=== PATIENT | male | born 1975 | race Caucasian/White ===

== ENCOUNTER 2020-08-11 13:19 | Outpatient (REF) | payer OTHER, SELFPAY ==
--- NOTE | 2020-08-11 | US_ITS ---
EXAMINATION: Noninvasive assessment of the arteries of both lower extremities to include a PVR exam limited (1-2 levels) and RANJANA, bilateral. ? Yevgeniy Martinez M.D. CLINICAL INFORMATION: Peripheral vascular disease COMPARISON: None TECHNIQUE: The ankle/brachial indices of the distal posterior tibial and the dorsalis pedis arteries were obtained of the lower extremity arterial system bilaterally; along with pressures and pulse volume recordings at the ankle and duplex Doppler techniques of the common femoral, proximal femoral and proximal profunda arteries. The study was performed at rest. ? FINDINGS AT REST:? RIGHT LE. THE RIGHT ANKLE-BRACHIAL INDEX IS: 1.09 (higher of the DP/PT) >0.97-1.25 = normal - no significant arterial disease 0.75-0.96 = mild peripheral arterial disease 0.50-0.74 = moderate peripheral arterial disease <0.50 = severe peripheral arterial disease <0.30 = critical arterial disease 2. SEGMENTAL PRESSURES: Ankle: PT 168 DP 183 3. PVR WAVEFORMS: Ankle: Within normal limits 4. DIRECT DUPLEX: Mildly increased velocities and triphasic waveforms above the knee, biphasic waveforms in the popliteal artery and posterior tibial artery. LEFT LE. THE LEFT ANKLE-BRACHIAL INDEX IS: 0.95 (higher of the DP/PT) >0.97-1.25 = normal - no significant arterial disease 0.75-0.96 = mild peripheral arterial disease 0.50-0.74 = moderate peripheral arterial disease <0.50 = severe peripheral arterial disease <0.30 = critical arterial disease 2. SEGMENTAL PRESSURES: Ankle: PT 139 DP 160 3. PVR WAVEFORMS: Ankle: Within normal limits 4. DIRECT DUPLEX: Normal velocities and triphasic waveforms in the left lower extremity. ? IMPRESSION: Right lower extremity: ABIs and PVR waveforms are within normal limits. The velocities are mildly increased in the right lower extremity. Left lower extremity: Abnormal ABIs suggest mild peripheral arterial disease. Normal velocities and triphasic waveforms.
== END 2020-08-11 13:20 | disposition home or self-care (01) ==
LOC: HO.US 13:19
PROVIDERS: Visit Provider Surgery Vascular Surgery
DX: I73.9 Peripheral vascular disease, unspecified (principal)
CPT/HCPCS: 93923; 93925

== ENCOUNTER → 2020-09-22 13:04 | Outpatient (BNVA) | payer OTHER, SELFPAY | PROVIDERS: PCP Internal Medicine; Referring Provider Internal Medicine; Visit Provider Surgery Vascular Surgery | DX: Z76.89 Persons encountering health services in other specified circumstances (principal) ==

== ENCOUNTER 2021-06-16 00:06 | Observation (INO) | payer OTHER, SELFPAY ==
[2021-06-16] VITALS (8 sets, daily range): BP systolic 140–201; BP diastolic 76–102; PULSE 56–107; RESP 12–20; TEMP 36.7–37.4; O2SAT 98–100; BMI 21.7
--- NOTE | ~2021-06-16 | XR_ITS ---
EXAMINATION: XR CHEST CLINICAL INFORMATION: Cough COMPARISON: 02/05/2019 TECHNIQUE: Frontal view of the chest was obtained. FINDINGS: The lungs are well expanded. There is no focal consolidation, edema, or effusion. No pneumothorax. The cardiomediastinal silhouette is within normal limits. No acute osseous abnormality. XR/XR chest 1V IMPRESSION: Clear lungs.
--- NOTE | ~2021-06-16 | CT_ITS ---
EXAMINATION: CT ABDOMEN AND PELVIS WITH CONTRAST CLINICAL INFORMATION: Epigastric discomfort. COMPARISON: CT abdomen/pelvis dated 01/28/2020 TECHNIQUE: Multidetector volumetric images were obtained from the superior aspect of the liver through the pubic symphysis following administration 85 mL of Omnipaque 350 intravenous contrast. Sagittal and coronal reformatted images were obtained on the technologist's workstation. Oral contrast: No. This CT examination was performed using dose optimization techniques as appropriate, variously including the following: *Automated exposure control *Adjustment of mA and/or kV according to patient size (this includes techniques or standardized protocols for targeted exams where dose is matched to indication/reason for exam; i.e. extremities or head) *Use of iterative reconstruction technique DLP: 368 mGy-cm FINDINGS: LUNG BASES: The visualized lung bases are unremarkable. LIVER, GALLBLADDER, AND BILIARY TREE: The liver is normal in size, shape, and attenuation. No focal hepatic lesion or biliary ductal dilatation is present. The gallbladder is unremarkable with no evidence of radiopaque gallstones, gallbladder wall thickening, or obvious pericholecystic inflammatory changes. PANCREAS: Unremarkable. SPLEEN: Unremarkable. ADRENAL GLANDS: Bilateral adrenal thickening, similar when compared to prior examinations. No discrete nodule. KIDNEYS AND URETERS: The kidneys are normal in size, shape, and attenuation. No hydronephrosis, hydroureter, or calculi seen. Nonspecific bilateral perinephric stranding is unchanged. BLADDER: Unremarkable. GASTROINTESTINAL TRACT: No bowel wall thickening or associated inflammatory change. No small or large bowel obstruction. Unremarkable appendix. PERITONEAL CAVITY: No intra-abdominal free air or free fluid. No intra-abdominal mass or organized fluid collection/abscess formation. ABDOMINAL WALL: No significant hernia is appreciated. LYMPH NODES: No lymphadenopathy. VASCULAR: No abdominal aortic dilatation or dissection. Atherosclerotic calcifications are redemonstrated throughout the abdominal aorta and its branch vessels. The IVC is unremarkable. PELVIC VISCERA: The prostate and seminal vesicles are unremarkable. OSSEOUS STRUCTURES: No new lytic or blastic osseous lesion. No acute osseous abnormality. CT/CT abdomen pelvis w con IMPRESSION: 1. No acute findings to explain the patient's epigastric pain. 2. No bowel wall thickening or associated inflammatory change. No small or large bowel obstruction. Unremarkable appendix. 3. No new intra-abdominal mass, lymphadenopathy, or ascites. 4. Previously seen chronic findings are unchanged.
[2021-06-16 03:09] LABS: Glucose, Whole Blood 348 mg/dL (60-115)
[2021-06-16 04:04] LABS: Basophils Percent Auto 0.2 % (0-2); Eosinophils Absolute Auto 0.1 X10*3/uL (0.0-0.4); Eosinophils Percent Auto 0.6 % (0-4); Hematocrit 41.2 % (42-52); Hemoglobin 13.9 g/dl (14.0-18.0); Imm Gran Abs Auto 0.08 X10*3/uL (0.00-0.03); Imm Gran Pct Auto 0.6 % (0.0-0.4); Lymphocytes Absolute Auto 0.6 X10*3/uL (1.2-4.9); Lymphocytes Percent Auto 4.4 % (20-40); MANUAL DIFF FLAG SCAN; Mean Corpuscular HGB Conc 33.7 g/dl (31.0-36.0); Mean Corpuscular Hemoglobin 27.4 pg (27.0-33.0); Mean Corpuscular Volume 81.1 fL (80-98); Mean Platelet Volume 10.2 fL (9.4-12.4); Monocytes Absolute Auto 0.4 X10*3/uL (0.1-1.2); Monocytes Percent Auto 2.8 % (2-11); Neutrophils Absolute Auto 12.1 X10*3/uL (2.0-8.3); Neutrophils Percent Auto 91.4 % (45-73); Platelet Count 310 X10*3/uL (160-400); Red Blood Count 5.08 X10*6/uL (4.60-5.80); Red Cell Distribution Width 16.8 % (11.0-16.0); SCAN SMEAR FLAG 1; White Blood Count 13.2 X10*3/uL (4.8-10.8)
[2021-06-16 04:05] LABS: SLIDE REVIEW VERIFIED
[2021-06-16 04:34] LABS: Alanine Aminotransferase 13 U/L (0-40); Albumin Level 4.7 g/dL (3.5-5.0); Alkaline Phosphatase 134 U/L (39-117); Anion Gap 21 (12-20); Aspartate Amino Transferase 11 U/L (5-37); Bilirubin Direct 0.3 mg/dL (0.0-0.5); Bilirubin Total 0.6 mg/dL (0.0-1.0); Blood Urea Nitrogen 39 mg/dL (9-16); Calcium 10.4 mg/dL (8.4-10.2); Carbon Dioxide 17 mmol/L (22-29); Chloride 102 mmol/L (96-108); Creatinine Clr Calc Pharmacy 55.4; Estimated Glomerular Filt Rate 55; Glucose Random 405 mg/dL (60-115); Lipase 59 U/L (8-78); Potassium 5.3 mmol/L (3.3-5.1); Sodium 135 mmol/L (135-145); Total Protein 7.9 g/dL (6.5-8.0)
[2021-06-16 05:51] LABS: COVID-19 Test Negative (Negative); IDNOW Serial# 9DD0AD1C
[2021-06-16] MEDS: 0.9 % Sodium Chloride 2,000 ML 999 ML IV (05:59)
[2021-06-16 06:01] LABS: Acetone, serum QL Negative (Negative)
--- NOTE | 2021-06-16 06:23 | ED_ITS ---
HPI - Nausea/Vomiting/Diarrhea General Chief complaint: Nausea/Vomiting/Diarrhea Stated complaint: NAUSEA Time Seen by Provider: 06/16/21 05:23 Source: patient Mode of arrival: EMS History of Present Illness HPI Narrative: 45-year-old male with history of diabetes who is brought in via EMS for complaints of nausea and dizziness and stating that he feels like his blood sugars low. He states that he was recently started on Trulicity and last had his injection on Monday and states that he always feels significantly nauseous afterwards but denies having any vomiting. He also describes some nonbloody diarrhea but otherwise denies shortness of breath, chest pain/palpitations. He denies any sore throat, new cough, denies any alcohol use and states he has had chills but unsure if he has had any fevers. Related Data Home Medications Medication Instructions Recorded Confirmed amlodipine 5 mg tablet 5 mg PO DAILY 09/22/20 aspirin 81 mg tablet,delayed 81 mg PO DAILY 09/22/20 release clopidogrel 75 mg tablet (Plavix) 75 mg PO DAILY 09/22/20 dulaglutide 0.75 mg/0.5 mL 0.75 mg SUBCUT QWEEK 09/22/20 subcutaneous pen injector (Trulicity) fluoxetine 20 mg capsule (Prozac) 20 mg PO DAILY 09/22/20 gabapentin 300 mg capsule 300 mg PO DAILY 09/22/20 lisinopril 20 mg tablet 20 mg PO DAILY 09/22/20 metoprolol suc 100 1 tab PO DAILY 09/22/20 mg-hydrochlorothiazide 12.5 mg tablet,ext.rel 24 hr omeprazole 20 mg capsule,delayed 20 mg PO DAILY 09/22/20 release trazodone 100 mg tablet 100 mg PO DAILY 09/22/20 Allergies Allergy/AdvReac Type Severity Reaction Status Date / Time metformin [METFORMIN] AdvReac Mild DIARRHEA, Verified 09/22/20 13:18 nausea and vomiting Review of Systems Review of Systems: Pertinent positives and negatives as stated in HPI 10 point review of systems is otherwise negative. [facility] Past Medical History Source: nursing notes reviewed Medical History Asthma HTN (hypertension) Hypercholesteremia PAD (peripheral artery disease) Surgical History S/P angiogram of extremity Social History Social History Alcohol intake: unknown Patient Tobacco Use Status: Never used Tobacco Use of substances other than those prescribed or required for medical reasons: No Advance Directives: No Advance Directives Information Provided: No Physical Exam Vital Signs: Vital Signs: Last Vital Signs Temp 98.9 F 06/16/21 07:31 Pulse 107 H 06/16/21 07:31 Resp 16 06/16/21 07:31 BP 156/92 H 06/16/21 07:31 Pulse Ox 98 06/16/21 07:31 Body Mass Index 21.7 VITAL SIGNS: Reviewed. GENERAL: Chronically ill,, well nourished, mild distress. HEAD: Normocephalic/atraumatic EYES: PERRLA, EOMI OROPHARYNX: no oral lesions noted, posterior pharynx clear, dry mucosa LUNGS: Normal breath sounds. No adventitious sounds or accessory muscle use. SpO2<98> CARDIOVASCULAR: Regular rate and rhythm without noted murmurs, no JVD or lower extremity edema. ABDOMEN: Soft, mild tenderness in mid abdomen, non-distended with bowel sounds. SKIN: Inspection of the skin reveals no rashes NEUROLOGIC: Alert and oriented x 4. Strength and sensation to light touch were grossly intact x 4, tremulous Course Course Course Narrative: This is a 45-year-old male with history and clinical presentat ion initially thought to be mild gastroenteritis with hyperglycemia versus possible Trulicity side effects. Patient was provided with 2 L of IV fluids, acetone is negative and given patient's recent bout of nausea and diarrhea suspect that initial chemistry panel reflects some mild dehydration. In addition, patient received 10 units of regular insulin subQ and on repeat POC- 279. On re-evaluation patient states that he is still having significant nausea with epigastric pain that is radiating up into his chest. Patient was then provided with Zofran, GI cocktail, and review of repeat chemistries show significant improvement of all numbers. Urinalysis was negative for acute findings and COVID-19 is negative. Signed out to Dr Maya: f/u hsTrop, CT abd/pelvis MDM - Nausea/Vomiting/Diarrhea Lab Data Result diagrams: 06/16/21 03:53 06/16/21 03:53 Labs: Lab Results 06/16/21 06/16/21 06/16/21 Range/Units 03:05 03:53 03:53 WBC 13.2 H (4.8-10.8) X10*3/uL RBC 5.08 (4.60-5.80) X10*6/uL Hgb 13.9 L (14.0-18.0) g/dl Hct 41.2 L (42-52) % MCV 81.1 (80-98) fL MCH 27.4 (27.0-33.0) pg MCHC 33.7 (31.0-36.0) g/dl RDW 16.8 H (11.0-16.0) % Plt Count 310 (160-400) X10*3/uL MPV 10.2 (9.4-12.4) fL Immature Gran % (Auto) 0.6 H (0.0-0.4) % Neut % (Auto) 91.4 H (45-73) % Lymph % (Auto) 4.4 L (20-40) % [place] % (Auto) 2.8 (2-11) % Eos % (Auto) 0.6 (0-4) % Baso % (Auto) 0.2 (0-2) % Lymph # (Auto) 0.6 L (1.2-4.9) X10*3/uL [place] # (Auto) 0.4 (0.1-1.2) X10*3/uL Eos # (Auto) 0.1 (0.0-0.4) X10*3/uL Baso # (Auto) 0.0 (0.0-0.2) X10*3/uL Abs Immat Gran (auto) 0.08 H (0.00-0.03) X10*3/uL Absolute Neuts (auto) 12.1 H (2.0-8.3) X10*3/uL Absolute Nucleated RBC 0.000 (0.0-0.012) X10*3/uL Nucleated RBC % (auto) 0.0 (0.0-0.2) /100WBC Smear Tech's Comments VERIFIED Sodium 135 (135-145) mmol/L Potassium 5.3 H (3.3-5.1) mmol/L Chloride 102 (96-108) mmol/L Carbon Dioxide 17 L (22-29) mmol/L Anion Gap 21 H (12-20) BUN 39 H (9-16) mg/dL Creatinine 1.39 (0.5-1.4) mg/dL Estim Creat Clear Calc 55.4 Estimated GFR 55 POC Glucose 348 H (60-115) mg/dL Random Glucose 405 H* (60-115) mg/dL Calcium 10.4 H (8.4-10.2) mg/dL Total Bilirubin 0.6 (0.0-1.0) mg/dL Direct Bilirubin 0.3 (0.0-0.5) mg/dL AST 11 (5-37) U/L ALT 13 (0-40) U/L Alkaline Phosphatase 134 H (39-117) U/L Total Protein 7.9 (6.5-8.0) g/dL Albumin 4.7 (3.5-5.0) g/dL Lipase 59 (8-78) U/L Acetone, Qual Negative (Negative) COVID-19 (XANDER) (Negative) COVID-19 Clin Com 06/16/21 06/16/21 Range/Units 05:29 07:28 WBC (4.8-10.8) X10*3/uL RBC (4.60-5.80) X10*6/uL Hgb (14.0-18.0) g/dl Hct (42-52) % MCV (80-98) fL MCH (27.0-33.0) pg MCHC (31.0-36.0) g/dl RDW (11.0-16.0) % Plt Count (160-400) X10*3/uL MPV (9.4-12.4) fL Immature Gran % (Auto) (0.0-0.4) % Neut % (Auto) (45-73) % Lymph % (Auto) (20-40) % [place] % (Auto) (2-11) % Eos % (Auto) (0-4) % Baso % (Auto) (0-2) % Lymph # (Auto) (1.2-4.9) X10*3/uL [place] # (Auto) (0.1-1.2) X10*3/uL Eos # (Auto) (0.0-0.4) X10*3/uL Baso # (Auto) (0.0-0.2) X10*3/uL Abs Immat Gran (auto) (0.00-0.03) X10*3/uL Absolute Neuts (auto) (2.0-8.3) X10*3/uL Absolute Nucleated RBC (0.0-0.012) X10*3/uL Nucleated RBC % (auto) (0.0-0.2) /100WBC Smear Tech's Comments Sodium (135-145) mmol/L Potassium (3.3-5.1) mmol/L Chloride (96-108) mmol/L Carbon Dioxide (22-29) mmol/L Anion Gap (12-20) BUN (9-16) mg/dL Creatinine (0.5-1.4) mg/dL Estim Creat Clear Calc Estimated GFR POC Glucose 279 H (60-115) mg/dL Random Glucose (60-115) mg/dL Calcium (8.4-10.2) mg/dL Total Bilirubin (0.0-1.0) mg/dL Direct Bilirubin (0.0-0.5) mg/dL AST (5-37) U/L ALT (0-40) U/L Alkaline Phosphatase (39-117) U/L Total Protein (6.5-8.0) g/dL Albumin (3.5-5.0) g/dL Lipase (8-78) U/L Acetone, Qual (Negative) COVID-19 (XANDER) Negative (Negative) COVID-19 Clin Com See Note ECG Data Attestation: I personally reviewed and interpreted this ECG as follows: Prior ECG tracings: available for review (01/28/2020 without acute changes other than currently tachycardic.) Interpretation: Sinus tachycardia, HR-115, no STEMI PA/QRS/QTC is within normal limits. Discharge Plan Discharge Clinical Impression: Abdominal pain, epigastric, Dehydration, Hyperglycemia
[2021-06-16] MEDS: Insulin Regular, Human 100 UNIT/ML 3 ML VIAL 10 UNIT IVPUSH (06:34)
[2021-06-16 07:37] LABS: Glucose, Whole Blood 279 mg/dL (60-115)
--- NOTE | 2021-06-16 07:57 | ECG_ITS ---
Test Reason : CHEST PAIN Blood Pressure : / mmHG Vent. Rate : 115 BPM Atrial Rate : 115 BPM P-R Int : 134 ms QRS Dur : 070 ms QT Int : 322 ms P-R-T Axes : 064 061 051 degrees QTc Int : 445 ms Sinus tachycardia Otherwise normal ECG When compared with ECG of 28-JAN-2020 13:34, Vent. rate has increased BY 45 BPM Referred By: Elina Aguirre Electronically Signed By:BETO TURNER
[2021-06-16] MEDS: ondansetron HCL 4 MG/2 ML VIAL IVPUSH ×2 (08:25→21:40)
[2021-06-16] MEDS: Lidocaine HCl Viscous 2 % 15 ML SOLUTION 10 ML MUCOUS MEM (08:25)
[2021-06-16] MEDS: Magnesium Hydrox/Alum Hydrox 30 ML ORAL.SUSP PO (08:25)
[2021-06-16 08:39] LABS: Anion Gap 19 (12-20); Blood Urea Nitrogen 16 mg/dL (9-16); Calcium 9.5 mg/dL (8.4-10.2); Carbon Dioxide 19 mmol/L (22-29); Chloride 107 mmol/L (96-108); Creatinine Clr Calc Pharmacy 59.7; Estimated Glomerular Filt Rate 60; Glucose Random 263 mg/dL (60-115); Potassium 4.7 mmol/L (3.3-5.1); Sodium 140 mmol/L (135-145)
[2021-06-16 09:04] LABS: Troponin-I High Sensitivity < 3.5 ng/L (<3.5-35.0)
[2021-06-16] MEDS: iohexoL 350 MG/ML 100 ML INFUS..BTL IV (09:32)
[2021-06-16] MEDS: Metoclopramide HCl 10 MG/2 ML VIAL 5 MG IVPUSH ×2 (10:14→19:41)
[2021-06-16] MEDS: diphenhydrAMINE HCL 50 MG/ML VIAL 25 MG IVPUSH (10:14)
--- NOTE | 2021-06-16 10:52 | PHA.MEDREC ---
Pharmacy Consult ? Medication Reconciliation Pharmacy has completed the medication reconciliation.
[2021-06-16] MEDS: 0.9 % Sodium Chloride 1,000 ML 125 ML IVCONT ×2 (11:06→23:39)
--- NOTE | 2021-06-16 14:09 | P.HPHOSP_ITS ---
History of Present Illness Date of Service: 06/16/21 Chief Complaint: Nausea and vomitting abdominal pain 45 year male with HTN, HLD, diabetes, PAD, anxiety, diabetes, here with abdominal pain, nausea and vomitting. he relates that this started several days, persistent, with mild component of pain. Labs work is unremarkable. CT shows no acute finding. He thinks his symptoms are due to trulicity. Review of Systems Review of Systems: Gen: no fever Resp: no sob, no cough CV: no chest, no SOL, no leg edema GI: +n/v, +abd pain Neuro: No confusion Yes all other systems are reviewed and are negative [facility] Medical History Anxiety Asthma Diabetes HLD (hyperlipidemia) HTN (hypertension) Hypercholesteremia PAD (peripheral artery disease) Pertinent family history: Not pertient Surgical History S/P angiogram of extremity Social History Alcohol intake: unknown Patient Tobacco Use Status: Never used Tobacco Use of substances other than those prescribed or required for medical reasons: No Advance Directives: No Advance Directives Information Provided: No Meds Allergies Allergy/AdvReac Type Severity Reaction Status Date / Time metformin [METFORMIN] AdvReac Mild DIARRHEA, Verified 09/22/20 13:18 nausea and vomiting Active Medications: Current Medications Generic Name Dose Route Start Last Admin Trade Name Freq PRN Reason Stop Dose Admin Sodium Chloride 1,000 mls @ 125 mls/hr 06/16/21 10:15 06/16/21 11:06 Ns IVCONT 125 mls/hr .Q8H [facility] Administration Pharmacy Consult 1 each 06/16/21 10:05 Consult Rx Perform Med Rec MISCELLANE ONCE PRN Consult order Home Medications Medication Instructions Recorded Confirmed Last Taken Type aspirin 81 mg tablet,delayed 81 mg PO DAILY 09/22/20 06/16/21 06/14/21 History release gabapentin 300 mg capsule 300 mg PO TID 09/22/20 06/16/21 06/14/21 History amlodipine 5 mg tablet 1 tab PO DAILY 06/16/21 06/16/21 06/14/21 History atorvastatin 40 mg tablet 1 tab PO DAILY 06/16/21 06/16/21 06/14/21 History dulaglutide 1.5 mg/0.5 mL 1.5 mg SUBCUT REYES@0900 06/16/21 06/16/21 06/14/21 History subcutaneous pen injector (Trulicity) escitalopram oxalate 10 mg tablet 1 tab PO DAILY 06/16/21 06/16/21 06/14/21 History hydrocortisone 1 % topical cream 1 g TOPICAL BID PRN 06/16/21 06/16/21 Unknown History insulin glargine 100 unit/mL (3 26 unit SUBCUT BEDTIME 06/16/21 06/16/2105/30 History mL) subcutaneous pen (Lantus Solostar U-100 Insulin) insulin lispro 100 unit/mL See Protocol SUBCUT TIDAC 06/16/21 06/16/21 06/14/21 History subcutaneous pen (Humalog KwikPen (U-100) Insulin) lisinopril 40 mg tablet 1 tab PO DAILY 06/16/21 06/16/21 06/14/21 History metoprolol succinate 100 mg 1 tab PO DAILY 06/16/21 06/16/21 06/14/21 History tablet,extended release 24 hr omeprazole 40 mg capsule,delayed 1 cap PO DAILY@0630 06/16/21 06/16/21 06/14/21 History release trazodone 50 mg tablet 1 tab PO BEDTIME 06/16/21 06/16/21 06/14/21 History umeclidinium 62.5 mcg-vilanterol 62.5 mcg INHALATION DAILY 06/16/21 06/16/21 06/14/21 History 25 mcg/actuation powdr for inhalation (Anoro Ellipta) Physical Exam Vital Signs and Narrative: Vital Signs: Last Vital Signs Temp 98.9 F 06/16/21 07:31 Pulse 56 06/16/21 11:03 Resp 16 06/16/21 11:03 BP 140/79 H 06/16/21 11:03 Pulse Ox 99 06/16/21 11:03 Body Mass Index 21.7 Constitutional Awake and Alert, No apparent distress HEENT-anicteric, PERRLA Neck Supple, No lymphadenopathy Cardiovascular RRR, No M/R/G, S1 S2, No S3 S4, No pedal edema Respiratory Lungs clear, No respiratory distress Gastrointestinal no distention, mild tenderness Skin No rash Neurological Alert & oriented x3 Psychological Appropriate affect Results Labs CBC and Chem 7: 06/16/21 03:53 06/16/21 07:49 Labs: Laboratory Results - last 24 hr 06/16/21 06/16/21 06/16/21 03:05 03:53 03:53 MCV 81.1 MCH 27.4 MCHC 33.7 RDW 16.8 H Plt Count 310 MPV 10.2 Immature Gran % (Auto) 0.6 H Neut % (Auto) 91.4 H Lymph % (Auto) 4.4 L [place] % (Auto) 2.8 Eos % (Auto) 0.6 Baso % (Auto) 0.2 Lymph # (Auto) 0.6 L [place] # (Auto) 0.4 Eos # (Auto) 0.1 Baso # (Auto) 0.0 Abs Immat Gran (auto) 0.08 H Absolute Neuts (auto) 12.1 H Absolute Nucleated RBC 0.000 Nucleated RBC % (auto) 0.0 Smear Tech's Comments VERIFIED Anion Gap 21 H Estim Creat Clear Calc 55.4 Estimated GFR 55 POC Glucose 348 H Random Glucose 405 H* Calcium 10.4 H Total Bilirubin 0.6 Direct Bilirubin 0.3 AST 11 ALT 13 Alkaline Phosphatase 134 H Troponin I High Sens Total Protein 7.9 Albumin 4.7 Lipase 59 Acetone, Qual Negative COVID-19 (XANDER) COVID-SmartyPants Vitamins 06/16/21 06/16/21 06/16/21 05:29 07:28 07:49 MCV MCH MCHC RDW Plt Count MPV Immature Gran % (Auto) Neut % (Auto) Lymph % (Auto) [place] % (Auto) Eos % (Auto) Baso % (Auto) Lymph # (Auto) [place] # (Auto) Eos # (Auto) Baso # (Auto) Abs Immat Gran (auto) Absolute Neuts (auto) Absolute Nucleated RBC Nucleated RBC % (auto) Smear Tech's Comments Anion Gap 19 Estim Creat Clear Calc 59.7 Estimated GFR 60 POC Glucose 279 H Random Glucose 263 H D Calcium 9.5 D Total Bilirubin Direct Bilirubin AST ALT Alkaline Phosphatase Troponin I High Sens Total Protein Albumin Lipase Acetone, Qual COVID-19 (XANDER) Negative COVID-Color[employer] Clin Com See Note 06/16/21 07:49 MCV MCH MCHC RDW Plt Count MPV Immature Gran % (Auto) Neut % (Auto) Lymph % (Auto) [place] % (Auto) Eos % (Auto) Baso % (Auto) Lymph # (Auto) [place] # (Auto) Eos # (Auto) Baso # (Auto) Abs Immat Gran (auto) Absolute Neuts (auto) Absolute Nucleated RBC Nucleated RBC % (auto) Smear Tech's Comments Anion Gap Estim Creat Clear Calc Estimated GFR POC Glucose Random Glucose Calcium Total Bilirubin Direct Bilirubin AST ALT Alkaline Phosphatase Troponin I High Sens < 3.5 Total Protein Albumin Lipase Acetone, Qual COVID-19 (XANDER) COVID-19 Clin Com Imaging Radiologist's Impressions: Impressions Chest X-Ray 06/16/21 05:25 IMPRESSION: Clear lungs. Abdomen/Pelvis CT 06/16/21 08:14 IMPRESSION: 1. No acute findings to explain the patient's epigastric pain. 2. No bowel wall thickening or associated inflammatory change. No small or large bowel obstruction. Unremarkable appendix. 3. No new intra-abdominal mass, lymphadenopathy, or ascites. 4. Previously seen chronic findings are unchanged. Assessment and Plan (1) Abdominal pain, epigastric: Status: Acute (2) Vomiting: Qualifiers: Nausea presence: with nausea Vomiting Intractability: intractable Vomiting type: unspecified Qualified Code(s): R11.2 - Nausea with vomiting, unspecified Status: Acute (3) Hyperglycemia: Status: Acute 45 year male with HTN, HLD, diabetes, PAD, anxiety, diabetes, here with abdominal pain, nausea and vomitting. he relates that this started several days, persistent, with mild component of pain. Labs work is unremarkable. CT shows no acute finding. I suspect his presentation is due to combination of gastroparesis, canabis use. plan: Nausea and vomitting--likely from gastroparesis, canabis related cyclical vomitting -Hydrate -antiemetics (reglan, Zofran) -IV pepcid -pain med #Diabetes--Hold lantus until eating full meals, SSI, check sugawrs #HTN--continue Norvasc, Lisinopril and Metoprolol #HLD--Lipitor #DVT prophylaxis.. lovenox Quality Stroke Does the patient have a stroke diagnosis?: No VTE Prior VTE?: No VTE Risk Level:: Medical - moderate - high VTE Device Contraindication: N/A - Device Ordered VTE Drug Contraindication: N/A - Med Ordered
[2021-06-16 15:58] LABS: Appearance Urine CLEAR; Color Urine STRAW; Glucose Urine UA >=1000 MG/DL (NEG); Leukocyte Esterase Urine NEG (NEG); Nitrite Urine NEG (NEG); PH 5.5 (5.0-8.0); UACC Culture Trigger NO; Urine Blood 2+ (NEG); Urine Ketones 15 MG/DL (NEG); Urine Protein 2+ MG/DL (NEG-TRACE)
[2021-06-16] MEDS: Insulin Lispro 100 UNIT/ML 3 ML VIAL SUBCUT ×2 (15:59→21:41)
[2021-06-16] MEDS: Enoxaparin Sodium 40 MG/0.4 ML SYRINGE SUBCUT (15:59)
[2021-06-16] MEDS: Sodium Chloride 0.45 % 1,000 ML 100 ML IVCONT (16:00)
[2021-06-16 16:13] LABS: WBC Urine 0-2 /HPF (0-4)
[2021-06-16 16:14] LABS: Squamous Epithelial Cell Urine TRACE /LPF
[2021-06-16 18:00] LABS: Glucose, Whole Blood 186 mg/dL (60-115)
[2021-06-16 18:00] LABS: Glucose, Whole Blood 174 mg/dL (60-115)
[2021-06-16 21:15] LABS: Glucose, Whole Blood 157 mg/dL (60-115)
[2021-06-16] MEDS: traZODone HCL 50 MG TABLET PO (21:40)
[2021-06-16] MEDS: Melatonin 3 MG TABLET 6 MG PO (21:40)
[2021-06-16] MEDS: 0.9 % Sodium Chloride Flush 3 ML SYRINGE IVFLUSH (21:41)
[2021-06-17] VITALS (7 sets, daily range): BP systolic 129–168; BP diastolic 72–95; PULSE 71–97; RESP 16–18; TEMP 36.5–36.9; O2SAT 94–100
[2021-06-17] MEDS: Omeprazole 40 MG CAPSULE.DR PO (05:51)
[2021-06-17] MEDS: ondansetron HCL 4 MG/2 ML VIAL IVPUSH (05:54)
[2021-06-17 06:36] LABS: Hematocrit 37.7 % (42-52); Hemoglobin 12.6 g/dl (14.0-18.0); Mean Corpuscular HGB Conc 33.4 g/dl (31.0-36.0); Mean Corpuscular Hemoglobin 27.5 pg (27.0-33.0); Mean Corpuscular Volume 82.1 fL (80-98); Mean Platelet Volume 10.4 fL (9.4-12.4); Platelet Count 284 X10*3/uL (160-400); Red Blood Count 4.59 X10*6/uL (4.60-5.80); Red Cell Distribution Width 17.3 % (11.0-16.0); White Blood Count 9.2 X10*3/uL (4.8-10.8)
[2021-06-17 07:54] LABS: Glucose, Whole Blood 145 mg/dL (60-115)
--- NOTE | 2021-06-17 08:27 | HE.PHANOTE ---
Spoke to Swathi Franklin in regards to seeing if the patient could bring in their home medication that is a non-formulary medication. She said she will touch base with the patients family to see if someone can bring in the Anoro. Holly Abad, PharmD [phone]
[2021-06-17] MEDS: Escitalopram Oxalate 10 MG TABLET PO (09:13)
[2021-06-17] MEDS: Gabapentin 300 MG CAPSULE PO ×3 (09:13→21:41)
[2021-06-17] MEDS: Atorvastatin Calcium 40 MG TABLET PO (09:13)
[2021-06-17] MEDS: amLODIPine Besylate 5 MG TABLET PO (09:13)
[2021-06-17] MEDS: lisinopriL 40 MG TABLET PO (09:13)
[2021-06-17] MEDS: Metoprolol Succinate ER 100 MG TAB.ER.24H PO (09:13)
[2021-06-17] MEDS: Morphine Sulfate 4 MG/ML CARTRIDGE 2 MG IVPUSH (10:21)
[2021-06-17] MEDS: Metoclopramide HCl 10 MG/2 ML VIAL 5 MG IVPUSH (10:22)
[2021-06-17 11:47] LABS: Glucose, Whole Blood 177 mg/dL (60-115)
[2021-06-17] MEDS: Insulin Lispro 100 UNIT/ML 3 ML VIAL SUBCUT ×3 (11:58→21:41)
--- NOTE | 2021-06-17 12:10 | HO.PM.IMPN ---
Subjective Subjective Date of Service: 06/17/21 Interval History: Patient seen and examined at bedside. He reports that he continues to have abdominal pain, his nausea and vomiting has improved slightly with antiemetics. He denies any fever or chills, reports that he has not moved his bowels for 4 days. He denies any chest pain, no shortness of breath, no cough, no urinary symptoms and no lower extremity edema. Physical Exam Vital Signs: Vital Signs: Last Vital Signs Temp 98.0 F 06/17/21 11:03 Pulse 97 06/17/21 11:03 Resp 16 06/17/21 11:03 BP 133/78 06/17/21 11:03 Pulse Ox 98 06/17/21 11:03 Body Mass Index 21.7 Const: General: cooperative and no acute distress Orientation/consciousness: patient oriented x3 Resp: Effort & Inspection: normal respiratory effort and able to speak in complete sentences Cardio: Rate: regular rate Rhythm: regular rhythm GI: Palpation (GI): Soft to palpation Auscultation: normal bowel sounds Skin: General skin exam: no rashes or lesions noted Neuro: General: patient oriented x3 Objective Data Current Medications Generic Name Dose Route Start Last Admin Trade Name Freq PRN Reason Stop Dose Admin Acetaminophen 650 mg 06/16/21 14:36 Acetaminophen 325 Mg Tablet PO Q6H PRN Pain, Mild (Pain Scale 1-3) Amlodipine Besylate 5 mg 06/17/21 09:00 06/17/21 09:13 Amlodipine Besylate 5 Mg Tablet PO 5 mg DAILY DIONISIO Administration Protocol Atorvastatin Calcium 40 mg 06/17/21 09:00 06/17/21 09:13 Atorvastatin Calcium 40 Mg Tablet PO 40 mg DAILY DIONISIO Administration Enoxaparin Sodium 40 mg 06/16/21 16:00 06/16/21 15:59 Enoxaparin Sodium 40 Mg/0.4 Ml Syringe SUBCUT 40 mg Q24H DIONISIO Administration Escitalopram Oxalate 10 mg 06/17/21 09:00 06/17/21 09:13 Escitalopram Oxalate 10 Mg Tablet PO 10 mg DAILY DIONISIO Administration Gabapentin 300 mg 06/17/21 09:00 06/17/21 09:13 Gabapentin 300 Mg Capsule PO 300 mg TID DIONISIO Administration Sodium Chloride 1,000 mls @ 125 mls/hr 06/16/21 10:15 06/17/21 11:44 Ns IVCONT Not Given .Q8H [facility] Insulin Human Lispro 0 unit 06/16/21 16:30 06/17/21 11:58 Insulin Lispro 100 Unit/Ml 3 Ml Vial SUBCUT 2 unit QIDACHS [facility] Administration Protocol Lisinopril 40 mg 06/17/21 09:00 06/17/21 09:13 Lisinopril 40 Mg Tablet PO 40 mg DAILY [facility] Administration Protocol Melatonin 6 mg 06/16/21 14:36 06/16/21 21:40 Melatonin 3 Mg Tablet PO 6 mg BEDTIME PRN Administration Insomnia Metoclopramide HCl 5 mg 06/16/21 14:36 06/17/21 10:22 Metoclopramide Hcl 10 Mg/2 Ml Vial IVPUSH 5 mg Q6H PRN Administration Nausea and Vomiting Metoprolol Succinate 100 mg 06/17/21 09:00 06/17/21 09:13 Metoprolol Succinate Er 100 Mg Tab.Er.24h PO 100 mg DAILY [facility] Administration Protocol Morphine Sulfate 2 mg 06/16/21 14:36 06/17/21 10:21 Morphine Sulfate 4 Mg/Ml Cartridge IVPUSH 2 mg Q4H PRN Administration Pain, Severe (Pain Scale 7-10) Protocol Non-Formulary Medication 62.5 mcg 06/17/21 09:00 Umeclidinium-Vilanterol [Anoro Ellipta] INHALE DAILY [facility] Omeprazole 40 mg 06/17/21 06:30 06/17/21 05:51 Omeprazole 40 Mg Capsule. PO 40 mg DAILY@0630 [facility] Administration Ondansetron HCl 4 mg 06/16/21 14:36 06/17/21 05:54 Ondansetron Hcl 4 Mg/2 Ml Vial IVPUSH 4 mg Q8H PRN Administration Nausea and Vomiting Pharmacy Consult 1 each 06/16/21 10:05 Consult Rx Perform Med Rec MISCELLANE ONCE PRN Consult order Sodium Chloride 3 ml 06/16/21 16:00 06/17/21 08:25 0.9 % Sodium Chloride Flush 3 Ml Syringe IVFLUSH Not Given QSHIFT [facility] Trazodone HCl 50 mg 06/16/21 21:00 06/16/21 21:40 Trazodone Hcl 50 Mg Tablet PO 50 mg BEDTIME [facility] Administration Labs CBC & Chem 7: 06/17/21 05:49 06/16/21 07:49 Labs: Laboratory Results - last 24 hr 06/16/21 06/16/21 06/16/21 07:48 15:45 17:56 MCV MCH MCHC RDW Plt Count MPV Absolute Nucleated RBC Nucleated RBC % (auto) POC Glucose 186 H 174 H Urine Color STRAW Urine Appearance CLEAR Urine pH 5.5 Ur Specific [place] 1.020 Urine Protein 2+ H Urine Glucose (UA) >=1000 H Urine Ketones 15 Urine Blood 2+ H Urine Nitrite NEG Ur Leukocyte Esterase NEG Urine RBC 10-14 H Urine WBC 0-2 Ur Squamous Epith Cells TRACE Urine Bacteria NONE 06/16/21 06/17/21 06/17/21 20:51 05:49 07:12 MCV 82.1 MCH 27.5 MCHC 33.4 RDW 17.3 H Plt Count 284 MPV 10.4 Absolute Nucleated RBC 0.000 Nucleated RBC % (auto) 0.0 POC Glucose 157 H 145 H Urine Color Urine Appearance Urine pH Ur Specific [place] Urine Protein Urine Glucose (UA) Urine Ketones Urine Blood Urine Nitrite Ur Leukocyte Esterase Urine RBC Urine WBC Ur Squamous Epith Cells Urine Bacteria 06/17/21 11:31 MCV MCH MCHC RDW Plt Count MPV Absolute Nucleated RBC Nucleated RBC % (auto) POC Glucose 177 H Urine Color Urine Appearance Urine pH Ur Specific [place] Urine Protein Urine Glucose (UA) Urine Ketones Urine Blood Urine Nitrite Ur Leukocyte Esterase Urine RBC Urine WBC Ur Squamous Epith Cells Urine Bacteria Assessment and Plan (1) Abdominal pain, epigastric: Status: Acute (2) Dehydration: Status: Acute Assessment and Plan: 45 year male with HTN, HLD, diabetes, PAD, anxiety, diabetes, here with abdominal pain, nausea and vomitting. he relates that this started several days, persistent, with mild component of pain. Labs work? is unremarkable. CT shows no acute finding.? I suspect his presentation is due to combination of gastroparesis, canabis use. #Abdoiminal pain/ n/v - Gastroparesis vs cannabinoid cyclic vomiting syndrome plan: - continue iv fluids - antiemetics (reglan, Zofran) - IV pepcid - pain med - Will start him on stool softner #Diabetes - Hold lantus until eating full meals, - SSI, check sugawrs #HTN - stable -continue Norvasc, Lisinopril? and Metoprolol #HLD--Lipitor #DVT prophylaxis..? lovenox Quality Stroke Does the patient have a stroke diagnosis?: No VTE Prior VTE?: No VTE Risk Level:: Medical - moderate - high VTE Device Contraindication: N/A - Device Ordered VTE Drug Contraindication: N/A - Med Ordered
[2021-06-17] MEDS: polyethylene glycoL 3350 17 GM POWD.PACK PO (15:16)
[2021-06-17] MEDS: Enoxaparin Sodium 40 MG/0.4 ML SYRINGE SUBCUT (15:16)
--- NOTE | 2021-06-17 15:29 | MHC.CM.PN ---
Addendum entered by Linsey [address] 06/17/21 15:49: PT REQUESTED TO COMPLETE A NEW HCP NAMING HIS GF, SEAN, HIS AGENT. HCP COMPLETED. Original Note: CM MET WITH PT WHO REPORTS HE LIVES WITH HIS 17 YO DAUGHTER AND 16 MONTH OLD GRANDSON. PT REPORTS HE IS FULLY INDEPENDENT AND USES NO DME AT HOME. PT REPORTS HE DOES HAVE OP MH SERVICES AT [facility] IN [place]. HIS PCP, ESTEFANI PAYTON, IS ALSO AT [facility]. PT HAS A HCP ON FILE. CURRENT DC PLAN IS HOME WITH NO SERVICES PT WILL SELF ARRANGE TRANSPORT
[2021-06-17 16:24] LABS: Glucose, Whole Blood 163 mg/dL (60-115)
[2021-06-17] MEDS: 0.9 % Sodium Chloride 1,000 ML 125 ML IVCONT (18:01)
[2021-06-17 20:32] LABS: Glucose, Whole Blood 167 mg/dL (60-115)
[2021-06-17] MEDS: Melatonin 3 MG TABLET 6 MG PO (21:41)
[2021-06-17] MEDS: traZODone HCL 50 MG TABLET PO (21:41)
[2021-06-18] MEDS: 0.9 % Sodium Chloride 1,000 ML 125 ML IVCONT (02:02)
[2021-06-18 03:41] VITALS: BP 155/87; PULSE 72; RESP 18; TEMP 36.4; O2SAT 94
[2021-06-18] MEDS: Omeprazole 40 MG CAPSULE.DR PO (05:39)
[2021-06-18 07:30] VITALS: BP 187/88; PULSE 62; RESP 16; TEMP 36.4; O2SAT 98
[2021-06-18] MEDS: Insulin Lispro 100 UNIT/ML 3 ML VIAL SUBCUT ×2 (07:40→11:37)
[2021-06-18 07:44] LABS: Glucose, Whole Blood 155 mg/dL (60-115)
[2021-06-18] MEDS: Atorvastatin Calcium 40 MG TABLET PO (08:19)
[2021-06-18] MEDS: Gabapentin 300 MG CAPSULE PO (08:19)
[2021-06-18] MEDS: Metoprolol Succinate ER 100 MG TAB.ER.24H PO (08:19)
[2021-06-18] MEDS: lisinopriL 40 MG TABLET PO (08:19)
[2021-06-18] MEDS: amLODIPine Besylate 5 MG TABLET PO (08:20)
[2021-06-18] MEDS: Escitalopram Oxalate 10 MG TABLET PO (08:20)
--- NOTE | 2021-06-18 10:54 | PM.DS ---
DS: Providers Provider Date of Service: 06/18/21 Date of admission: 06/16/21 14:36 Primary care physician: Mckenna Jones MD DS: Diagnosis Discharge Diagnosis (1) Abdominal pain, epigastric: Status: Acute (2) Dehydration: Status: Acute DS: Medications Discharge Medications Home Medications: Home Medications Medication Instructions Recorded Confirmed aspirin 81 mg tablet,delayed 81 mg PO DAILY 09/22/20 06/16/21 release gabapentin 300 mg capsule 300 mg PO TID 09/22/20 06/16/21 amlodipine 5 mg tablet 1 tab PO DAILY 06/16/21 06/16/21 atorvastatin 40 mg tablet 1 tab PO DAILY 06/16/21 06/16/21 escitalopram oxalate 10 mg tablet 1 tab PO DAILY 06/16/21 06/16/21 hydrocortisone 1 % topical cream 1 g TOPICAL BID PRN 06/16/21 06/16/21 insulin glargine 100 unit/mL (3 26 unit SUBCUT BEDTIME 06/16/21 06/16/21 mL) subcutaneous pen (Lantus Solostar U-100 Insulin) insulin lispro 100 unit/mL See Protocol SUBCUT TIDAC 06/16/21 06/16/21 subcutaneous pen (Humalog KwikPen (U-100) Insulin) lisinopril 40 mg tablet 1 tab PO DAILY 06/16/21 06/16/21 metoprolol succinate 100 mg 1 tab PO DAILY 06/16/21 06/16/21 tablet,extended release 24 hr omeprazole 40 mg capsule,delayed 1 cap PO DAILY@0630 06/16/21 06/16/21 release trazodone 50 mg tablet 1 tab PO BEDTIME 06/16/21 06/16/21 umeclidinium 62.5 mcg-vilanterol 62.5 mcg INHALATION DAILY 06/16/21 06/16/21 25 mcg/actuation powdr for inhalation (Anoro Ellipta) Previous Rx's Medication Instructions Recorded ondansetron HCl 4 mg tablet 4 mg PO Q8H PRN 3 Days #7 tab 06/18/21 (Zofran) DS: Summary Hospital Course Hospital Course: This is a 45-year-old male with past medical history of HTN, HLD, diabetes, PUD, anxiety who presents to the hospital with complaints of abdominal pain nausea vomiting. Patient reported that the symptoms started when he started Trulicity which is associated with nausea and vomiting as well as abdominal pain. Patient was admitted, treated with IV fluids, antiemetics, and Trulicity was discontinued. Patient's symptoms resolved, he is feeling significantly better, reports that he would like to stop Trulicity on discharge. Patient also smokes marijuana which may also play a component in his symptoms. Trulicity was stopped at discharge, recommended to follow-up with his PCP for an alternative, continue insulin Advised to abstain from cannabis use Patient is symptoms free on discharge. Time Spent with Patient Time attestation: Total time spent providing and/or coordinating discharge services: Discharge coordination time: Greater than 30 minutes Quality: Stroke Does the patient have a stroke diagnosis?: No Physical Exam Vital Signs: Vital Signs: Last Vital Signs Temp 97.5 F 06/18/21 07:30 Pulse 62 06/18/21 07:30 Resp 16 06/18/21 07:30 BP 187/88 H 06/18/21 07:30 Pulse Ox 98 06/18/21 07:30 Body Mass Index 21.7 DS: Data Data Completed and Pending Labs on day of discharge: Laboratory Results - last 24 hr 06/17/21 06/17/21 06/17/21 11:31 16:07 20:26 POC Glucose 177 H 163 H 167 H 06/18/21 07:29 POC Glucose 155 H Discharge Plan Discharge Patient Disposition: Home, Self-Care Discharge Diagnosis: nausea and vomiting gastroparesis Referrals: Mckenna Jones MD [Primary Care Provider] - 1 Week Discharge Medications: New ondansetron HCl [Zofran] 4 mg tablet 4 mg PO Q8H PRN (Reason: nausea and vomiting) 3 Days Qty: 7 RF: 0 Continued atorvastatin 40 mg tablet 1 tab PO DAILY RF: 0 trazodone 50 mg tablet 1 tab PO BEDTIME RF: 0 metoprolol succinate 100 mg tablet extended release 24 hr 1 tab PO DAILY RF: 0 amlodipine 5 mg tablet 1 tab PO DAILY RF: 0 omeprazole 40 mg capsule,delayed release(DR/EC) 1 cap PO DAILY@0630 RF: 0 hydrocortisone 1 % cream 1 g topical BID PRN (Reason: Rash) RF: 0 lisinopril 40 mg tablet 1 tab PO DAILY RF: 0 insulin lispro [Humalog KwikPen Insulin] 100 unit/mL insulin pen See Protocol unit subcut TIDAC RF: 0 escitalopram oxalate 10 mg tablet 1 tab PO DAILY RF: 0 Lantus Solostar U-100 Insulin 100 unit/mL (3 mL) insulin pen 26 unit subcut BEDTIME RF: 0 Anoro Ellipta 62.5-25 mcg/actuation blister with device 62.5 mcg inhalation DAILY RF: 0 Discontinued Trulicity 1.5 mg/0.5 mL pen injector 1.5 mg subcut REYES@0900 RF: 0 Discharge Orders: Discharge Order (Routine); Ordered 06/18/21 Ordered By: Porfirio Ricardo Diet: advance to usual diet Activity on Discharge: As tolerated Stand Alone Forms: Patient Portal Discharge page Care Plan Goals: Recovery avoid hospitalization avoid cannabis use follow with primary care in regards to treatment of diabetes and alternative for Trulicity Health Concerns: gastroparesis, gastroenteriris nausea and vomiting Plan of Treatment: you were treated with iv fluids for nausea and vomiting that may have resulted from medication, cannabis use and gastroenteritis please follow up with primary care to discuss alternative to trulicity avoid cannabis use Assessment: see above Discharge Date/Time: 06/18/21 12:50
[2021-06-18 11:29] VITALS: BP 170/85; O2SAT 97
[2021-06-18 11:37] LABS: Glucose, Whole Blood 200 mg/dL (60-115)
== END 2021-06-18 12:50 | disposition home or self-care (01) ==
LOC: HO.ED 10:09 → HO.EDOVER 14:45 → HO.S3 19:37
PROVIDERS: Student in an Organized Health Care Education/Training Program; Admitting Provider Internal Medicine; Emergency Provider Emergency Medicine; PCP Internal Medicine; Visit Provider Internal Medicine
DX: R10.13 Epigastric pain (principal); R11.2 Nausea with vomiting, unspecified; E86.0 Dehydration; E10.65 Type 1 diabetes mellitus with hyperglycemia; E10.43 Type 1 diabetes mellitus with diabetic autonomic (poly)neuropathy; K31.84 Gastroparesis; I10 Essential (primary) hypertension; E78.5 Hyperlipidemia, unspecified; E78.00 Pure hypercholesterolemia, unspecified; R07.9 Chest pain, unspecified; F12.10 Cannabis abuse, uncomplicated; Z88.8 Allergy status to other drugs, medicaments and biological substances; Z79.82 Long term (current) use of aspirin; Z79.4 Long term (current) use of insulin; Z79.899 Other long term (current) drug therapy
CPT/HCPCS: 36415; 71045; 74177; 80048; 80053; 81001; 82009; 82248; 82947; 83690; 84484; 85025; 85027; 87635; 93005; 96361; 96372; 96374; 96375; 96376; 99218; 99285; J1200; J1650; J2270; J2405; J2765; Q9967

== ENCOUNTER 2021-07-21 21:55 | Emergency (ER) | payer OTHER, SELFPAY ==
--- NOTE | ~2021-07-21 | CT_ITS ---
EXAMINATION: CT ANGIOGRAM CHEST CLINICAL INFORMATION: Chest pain, hypertension, rule out dissection COMPARISON: Chest x-ray 07/21/2021 TECHNIQUE: Multiple axial images were obtained through the chest after the administration of 70 mL of Omnipaque 350 intravenous contrast. Extensive vascular post-processing including two-dimensional and three-dimensional reformatted images were created and reviewed on an independent workstation. This CT examination was performed using dose optimization techniques as appropriate, variously including the following: *Automated exposure control *Adjustment of mA and/or kV according to patient size (this includes techniques or standardized protocols for targeted exams where dose is matched to indication/reason for exam; i.e. extremities or head) *Use of iterative reconstruction technique DLP: 240 mGy-cm FINDINGS: No evidence of aortic dissection. There is scattered atherosclerotic calcification along the descending aorta. Thoracic aorta appears normal in caliber. There is minimal emphysema at the lung apices. Mild atelectasis noted in the lingula and left lower lobe. No additional consolidation. No pneumothorax or pleural effusion. The visualized thyroid gland is unremarkable. There are subcentimeter mediastinal lymph nodes within the range of normal variation. Cardiac size is within normal limits; no pericardial effusion. No central pulmonary embolus. No axillary lymphadenopathy is present. Thickened appearance of the bilateral adrenal glands. Nonspecific bilateral perinephric stranding in the visualized upper abdomen. No acute osseous findings are seen. CT/CT angio chest aorta IMPRESSION: 1. No evidence of aortic dissection. No acute intrathoracic findings identified. 2. Thickened appearance of the adrenal glands, which could represent hyperplasia.
--- NOTE | ~2021-07-21 | XR_ITS ---
EXAMINATION: XR CHEST CLINICAL INFORMATION: Chest pain COMPARISON: 06/16/2021 TECHNIQUE: Frontal view of the chest was obtained. FINDINGS: Suboptimal assessment due to patient rotation. Lung volumes are symmetric. No focal consolidation is seen. No evidence of pneumothorax, pleural effusion, or pulmonary edema. Cardiac size is within normal limits. No acute osseous findings are seen. XR/XR chest 1V IMPRESSION: No acute cardiopulmonary findings.
[2021-07-21 22:08] VITALS: BP 150/98; BP 196/94; PULSE 100; PULSE 94; RESP 18; O2SAT 98; BMI 22.9
--- NOTE | 2021-07-21 22:21 | ECG_ITS ---
Test Reason : CHES PAIN Blood Pressure : / mmHG Vent. Rate : 093 BPM Atrial Rate : 093 BPM P-R Int : 138 ms QRS Dur : 070 ms QT Int : 366 ms P-R-T Axes : 043 054 055 degrees QTc Int : 455 ms Normal sinus rhythm Normal ECG When compared with ECG of 16-JUN-2021 08:19, Heart rate has decreased Referred By: Dory Galvan Electronically Signed By:BETO TURNER
--- NOTE | 2021-07-21 22:31 | ED_ITS ---
HPI - Chest Pain General Chief Complaint: Chest Pain <Dory Galvan NP - Last Filed: 07/27/21 18:46> Stated Complaint: chest tightness <Dory Galvan NP - Last Filed: 07/27/21 18:46> Time Seen by Provider: 07/21/21 22:20 <Dory Galvan NP - Last Filed: 07/27/21 18:46> Source: patient <Dory Galvan NP - Last Filed: 07/27/21 18:46> Mode of arrival: ambulatory <Dory Galvan NP - Last Filed: 07/27/21 18:46> Limitations: no limitations <Dory Galvan NP - Last Filed: 07/27/21 18:46> History of Present Illness HPI narrative: 46-year-old male with a past medical history of HTN, HLD, diabetes, PAD, anxiety, diabetes here with complaints of generalized abdominal pain, vomiting, chest pain and shortness of breath since this morning with waking. Of note patient was recently admitted here in May for similar presentation with diagnosis of gastroporesis vs cyclic vomiting syndrome from [facility]. Patient received 1 sublingual nitro in 324 mg of aspirin prior to arrival. <Dory Galvan NP - Last Filed: 07/27/21 18:46> Related Data Home Medications: Home Medications Medication Instructions Recorded Confirmed aspirin 81 mg tablet,delayed 81 mg PO DAILY 09/22/20 06/16/21 release gabapentin 300 mg capsule 300 mg PO TID 09/22/20 06/16/21 amlodipine 5 mg tablet 1 tab PO DAILY 06/16/21 06/16/21 atorvastatin 40 mg tablet 1 tab PO DAILY 06/16/21 06/16/21 escitalopram oxalate 10 mg tablet 1 tab PO DAILY 06/16/21 06/16/21 hydrocortisone 1 % topical cream 1 g TOPICAL BID PRN 06/16/21 06/16/21 insulin glargine 100 unit/mL (3 26 unit SUBCUT BEDTIME 06/16/21 06/16/21 mL) subcutaneous pen (Lantus Solostar U-100 Insulin) insulin lispro 100 unit/mL See Protocol SUBCUT TIDAC 06/16/21 06/16/21 subcutaneous pen (Humalog KwikPen (U-100) Insulin) lisinopril 40 mg tablet 1 tab PO DAILY 06/16/21 06/16/21 metoprolol succinate 100 mg 1 tab PO DAILY 06/16/21 06/16/21 tablet,extended release 24 hr omeprazole 40 mg capsule,delayed 1 cap PO DAILY@0630 06/16/21 06/16/21 release trazodone 50 mg tablet 1 tab PO BEDTIME 06/16/21 06/16/21 umeclidinium 62.5 mcg-vilanterol 62.5 mcg INHALATION DAILY 06/16/21 06/16/21 25 mcg/actuation powdr for inhalation (Anoro Ellipta) Previous Rx's Medication Instructions Recorded ondansetron HCl 4 mg tablet 4 mg PO Q8H PRN 3 Days #7 tab 06/18/21 (Zofran) <Dory Galvan NP - Last Filed: 07/27/21 18:46> Allergies/Adverse Reactions: Allergies Allergy/AdvReac Type Severity Reaction Status Date / Time metformin [METFORMIN] AdvReac Mild DIARRHEA, Verified 09/22/20 13:18 nausea and vomiting <Dory Galvan NP - Last Filed: 07/27/21 18:46> Review of Systems Review of Systems: Yes all other systems are reviewed and are negative <Dory Galvan NP - Last Filed: 07/27/21 18:46> Constitutional: Constitutional: Reports no additional constitutional complaints, Denies body ache(s), Denies chills, Denies fever(s), Denies headache(s) and Denies weakness <Dory Galvan NP - Last Filed: 07/27/21 18:46> Eyes: Eyes: Reports no additional eye complaints and Denies change in vision <Dory Galvan NP - Last Filed: 07/27/21 18:46> ENT: Reports system reviewed and no additional complaints, except as documented, Denies dizziness, Denies headache(s), Denies nasal congestion, Denies nasal discharge and Denies neck pain <ZHOU Gale Last Filed: 07/27/21 18:46> Cardiovascular: Cardiovascular: Reports no additional cardiovascular complaints, Reports chest pain, Denies leg edema and Reports dyspnea <Dory Galvan NP - Last Filed: 07/27/21 18:46> Respiratory: Respiratory: Reports no additional respiratory complaints, Denies cough and Reports dyspnea <Dory Galvan NP - Last Filed: 07/27/21 18:46> Gastrointestinal: Gastrointestinal: Reports no additional gastrointestinal complaints, Reports abdominal pain, Reports diarrhea, Reports nausea and Reports vomiting <Dory Galvan NP - Last Filed: 07/27/21 18:46> Genitourinary: Genitourinary: Denies urinary incontinence <Dory Galvan NP - Last Filed: 07/27/21 18:46> Musculoskeletal: Musculoskeletal: Reports no additional musculoskeletal complaints, Denies back pain, Denies arthralgias, Denies joint swelling, Denies neck pain, Denies numbness and Denies tingling <Dory Galvan NP - Last Filed: 07/27/21 18:46> Integumentary/Breasts: Skin/Breast: Reports system reviewed and no additional complaints, except as docu and Denies rash <Dory Galvan NP - Last Filed: 07/27/21 18:46> Neurologic: Reports system reviewed and no additional complaints, except as documented, Denies Abnormal speech present, Denies dizziness, Denies headache(s), Denies numbness, Denies tingling and Denies weakness <Dory Galvan NP - Last Filed: 07/27/21 18:46> PMF Past Medical History Attestation statement: The following information was validated with the patient. <Dory Galvan NP - Last Filed: 07/27/21 18:46> Source: old records reviewed and nursing notes reviewed <Dory Galvan NP - Last Filed: 07/27/21 18:46> Medical History: Medical History Anxiety Asthma Diabetes HLD (hyperlipidemia) HTN (hypertension) Hypercholesteremia PAD (peripheral artery disease) <ZHOU Gale Last Filed: 07/27/21 18:46> Surgical History: Surgical History S/P angiogram of extremity <Dory Galvan NP - Last Filed: 07/27/21 18:46> Social History Social History: Social History Alcohol intake: unknown Patient Tobacco Use Status: Current everyday Tobacco user Tobacco use type: Cigarette Cigarettes Per Day: 10 Years Smoked: 29 Second Hand Smoke Exposure: Yes Advance Directives: No Advance Directives Information Provided: Yes service: No Current occupational status: unemployed <Dory Galvan NP - Last Filed: 07/27/21 18:46> Physical Exam Vital Signs: Vital Signs: Last Vital Signs Pulse 94 07/21/21 22:08 Resp 18 07/21/21 22:08 BP 196/94 H 07/21/21 22:08 Pulse Ox 98 07/21/21 22:08 Body Mass Index 22.9 <Dory Galvan NP - Last Filed: 07/27/21 18:46> Vital Signs: Last Vital Signs Pulse 94 07/21/21 22:08 Resp 18 07/21/21 22:08 BP 196/94 H 07/21/21 22:08 Pulse Ox 98 07/21/21 22:08 Body Mass Index 22.9 <Lalito Holloway MD - Last Filed: 07/21/21 23:56> Const: General: cooperative, healthy appearing, comfortable, no acute distress and anxious <Dory Galvan NP - Last Filed: 07/27/21 18:46> Orientation/consciousness: patient oriented x3 <Dory Galvan NP - Last Filed: 07/27/21 18:46> Limitations: no limitations <Dory Galvan NP - Last Filed: 07/27/21 18:46> HENMT: Head: Yes normal to inspection <Dory Galvan NP - Last Filed: 07/27/21 18:46> Ears: hearing grossly normal bilaterally <Dory Galvan NP - Last Filed: 07/27/21 18:46> General nose exam: Normal external nose present <Dory Galvan NP - Last Filed: 07/27/21 18:46> Face and sinus: Yes normal facial exam <Dory Galvan NP - Last Filed: 07/27/21 18:46> Mouth: Normal oral and palatal mucosa present <Dory Galvan NP - Last Filed: 07/27/21 18:46> Throat: Yes posterior oropharynx normal <Dory Galvan NP - Last Filed: 07/27/21 18:46> Eyes: General: appearance normal, both eyes and all related structures <Dory Galvan NP - Last Filed: 07/27/21 18:46> Pupils: Equal, round and reactive pupils present <Dory Galvan NP - Last Filed: 07/27/21 18:46> Neck: Neck: Yes normal visual inspection <Dory Galvan NP - Last Filed: 07/27/21 18:46> Chest: Other: Diffuse tenderness across the chest <Dory Galvan NP - Last Filed: 07/27/21 18:46> Chest palpation & inspection: normal inspection of the chest <Dory Galvan NP - Last Filed: 07/27/21 18:46> Resp: Effort & Inspection: normal respiratory effort <Dory Galvan NP - Last Filed: 07/27/21 18:46> Auscultation: clear to auscultation bilaterally <Dory Galvan NP - Last Filed: 07/27/21 18:46> Cardio: Rate: regular rate <Dory Galvan NP - Last Filed: 07/27/21 18:46> Rhythm: regular rhythm <Dory Galvan NP - Last Filed: 07/27/21 18:46> Peripheral pulses: Peripheral pulses 2+ throughout <Dory Galvan NP - Last Filed: 07/27/21 18:46> GI: Inspection: Yes normal to inspection <Dory Galvan NP - Last Filed: 07/27/21 18:46> Palpation (GI): Soft to palpation and Tenderness to palpation present (GI) (Diffusely tender no rebound or guarding) <ZHOU Gale Last Filed: 07/27/21 18:46> Auscultation: normal bowel sounds <Dory Galvan NP - Last Filed: 07/27/21 18:46> Back/Spine/Pelvis: Thoracic/Lumbar Spine: thoracic and lumbar spine normal to inspection <Dory Galvan NP - Last Filed: 07/27/21 18:46> Skin: General skin exam: no rashes or lesions noted <Dory Galvan NP - Last Filed: 07/27/21 18:46> Neuro: General: patient oriented x3, no focal motor deficits and normal sensation to monofilament <Dory Galvan NP - Last Filed: 07/27/21 18:46> Cranial nerves: Yes Equal, round and reactive pupils present <Dory Galvan NP - Last Filed: 07/27/21 18:46> Cognition (Neuro): normal cognition <Dory Galvan NP - Last Filed: 07/27/21 18:46> Speech: No Abnormal speech present <Dory Galvan NP - Last Filed: 07/27/21 18:46> Gait exam (Neuro): Normal gait present <Dory Galvan NP - Last Filed: 07/27/21 18:46> Motor exam (neuro): 5/5 motor strength present throughout <Dory Galvan NP - Last Filed: 07/27/21 18:46> Extrem: General: Yes normal to inspection, Yes no pedal edema and Yes no calf tenderness <Dory Galvan NP - Last Filed: 07/27/21 18:46> Course Course Course Narrative: 46-year-old male here with complaints of generalized abdominal pain, chest pain, shortness of breath, multiple episodes of vomiting with diarrhea today. Received ASA, NTG [employer]. Will check labs, EKG, chest x-ray, COVID screen 2313-elevated lactic acid/leukocytosis. This is not from infection it is from dehydration from multiple vomiting episodes. NSB 30cc/kg ordered. Mild hyperglycemia with no evidence of DKA. Will give 5 units of IV insulin and hydrate. 2350-Continued chest pain/SOB despite morphine, zofran. Patient is hypertensive and tachycardic. Less likely ACS with normal EKG, negative initial troponin. Discussed case with Dr. Holloway. Plan for CTA to r/o aortic dissection vs perforation. <Dory Galvan NP - Last Filed: 07/27/21 18:46> Reevaluation(s) Reevaluation #1: I obtained history and physical, lungs clear, CV RRR, abdomen nontender. However elevated WBC count, positive lactic acid and continued chest pain. Will obtain CT chest to rule out dissection or esophageal perforation. <Lalito Holloway MD - Last Filed: 07/21/21 23:56> Time: 23:56 <Lalito Holloway MD - Last Filed: 07/21/21 23:56> MDM - Chest Pain MDM Narrative Medical decision making narrative: Less likely ACS with negative initial troponin, atypical chest pain and EKG normal with symptoms >12 hrs. <Dory Galvan NP - Last Filed: 07/27/21 18:46> Medical Records Data Attestation: I reviewed the patient's medical records. <Dory Galvan NP - Last Filed: 07/27/21 18:46> Lab Data Attestation: I reviewed the patient's lab results. <Dory Galvan NP - Last Filed: 07/27/21 18:46> Result diagrams: : 07/21/21 22:36 07/21/21 22:36 <Dory Galvan NP - Last Filed: 07/27/21 18:46> Labs: Lab Results 07/21/21 07/21/21 07/21/21 Range/Units 22:36 22:36 22:36 WBC 15.9 H (4.8-10.8) X10*3/uL RBC 4.90 (4.60-5.80) X10*6/uL Hgb 13.8 L (14.0-18.0) g/dl Hct 41.2 L (42-52) % MCV 84.1 (80-98) fL MCH 28.2 (27.0-33.0) pg MCHC 33.5 (31.0-36.0) g/dl RDW 16.4 H (11.0-16.0) % Plt Count 261 (160-400) X10*3/uL MPV 10.8 (9.4-12.4) fL Immature Gran % (Auto) 1.0 H (0.0-0.4) % Neut % (Auto) 88.9 H (45-73) % Lymph % (Auto) 7.1 L (20-40) % [place] % (Auto) 2.5 (2-11) % Eos % (Auto) 0.2 (0-4) % Baso % (Auto) 0.3 (0-2) % Lymph # (Auto) 1.1 L (1.2-4.9) X10*3/uL [place] # (Auto) 0.4 (0.1-1.2) X10*3/uL Eos # (Auto) 0.0 (0.0-0.4) X10*3/uL Baso # (Auto) 0.0 (0.0-0.2) X10*3/uL Abs Immat Gran (auto) 0.16 H (0.00-0.03) X10*3/uL Absolute Neuts (auto) 14.2 H (2.0-8.3) X10*3/uL Absolute Nucleated RBC 0.000 (0.0-0.012) X10*3/uL Nucleated RBC % (auto) 0.0 (0.0-0.2) /100WBC VBG pH (7.32-7.43) VBG pCO2 mmHg VBG pO2 mmHg VBG HCO3 (22-26) mmol/L VBG O2 Saturation % VBG Base Excess mmol/L Sodium 137 (135-145) mmol/L Potassium 4.5 (3.3-5.1) mmol/L Chloride 99 (96-108) mmol/L Carbon Dioxide 17 L (22-29) mmol/L Anion Gap 26 H (12-20) BUN 18 H (9-16) mg/dL Creatinine 1.45 H (0.5-1.4) mg/dL Estim Creat Clear Calc 54.7 Estimated GFR 52 POC Glucose (60-115) mg/dL Random Glucose 486 H* (60-115) mg/dL Lactic Acid (0.5-2.0) mmol/L Calcium 10.2 D (8.4-10.2) mg/dL Magnesium 1.5 L (1.6-2.6) mg/dL Total Bilirubin 0.6 (0.0-1.0) mg/dL Direct Bilirubin 0.3 (0.0-0.5) mg/dL AST 21 D (5-37) U/L ALT 41 H (0-40) U/L Alkaline Phosphatase 119 H (39-117) U/L Troponin I High Sens < 3.5 (<3.5-35.0) ng/L Total Protein 7.9 (6.5-8.0) g/dL Albumin 4.6 (3.5-5.0) g/dL Lipase 32 (8-78) U/L Urine Color Urine Appearance Urine pH (5.0-8.0) Ur Specific [place] (1.005-1.025) Urine Protein (NEG-TRACE) MG/DL Urine Glucose (UA) (NEG) MG/DL Urine Ketones (NEG) MG/DL Urine Blood (NEG) Urine Nitrite (NEG) Ur Leukocyte Esterase (NEG) Urine RBC (0) /HPF Urine WBC (0-4) /HPF Ur Squamous Epith Cells /LPF Urine Bacteria /LPF Urine Mucus /LPF Urine Opiates Screen (Not Detect) Urine Fentanyl Screen (Not Detect) Ur Barbiturates Screen (Not Detect) Ur Phencyclidine Scrn (Not Detect) Ur Amphetamines Screen (Not Detect) U Benzodiazepines Scrn (Not Detect) Urine Cocaine Screen (Not Detect) U Marijuana (THC) Screen (Not Detect) Ethyl Alcohol mg/dL Acetone, Qual (Negative) COVID-19 (XANDER) (Negative) COVID-19 Clin Com 07/21/21 07/21/21 07/21/21 Range/Units 22:36 22:36 22:36 WBC (4.8-10.8) X10*3/uL RBC (4.60-5.80) X10*6/uL Hgb (14.0-18.0) g/dl Hct (42-52) % MCV (80-98) fL MCH (27.0-33.0) pg MCHC (31.0-36.0) g/dl RDW (11.0-16.0) % Plt Count (160-400) X10*3/uL MPV (9.4-12.4) fL Immature Gran % (Auto) (0.0-0.4) % Neut % (Auto) (45-73) % Lymph % (Auto) (20-40) % [place] % (Auto) (2-11) % Eos % (Auto) (0-4) % Baso % (Auto) (0-2) % Lymph # (Auto) (1.2-4.9) X10*3/uL [place] # (Auto) (0.1-1.2) X10*3/uL Eos # (Auto) (0.0-0.4) X10*3/uL Baso # (Auto) (0.0-0.2) X10*3/uL Abs Immat Gran (auto) (0.00-0.03) X10*3/uL Absolute Neuts (auto) (2.0-8.3) X10*3/uL Absolute Nucleated RBC (0.0-0.012) X10*3/uL Nucleated RBC % (auto) (0.0-0.2) /100WBC VBG pH (7.32-7.43) VBG pCO2 mmHg VBG pO2 mmHg VBG HCO3 (22-26) mmol/L VBG O2 Saturation % VBG Base Excess mmol/L Sodium (135-145) mmol/L Potassium (3.3-5.1) mmol/L Chloride (96-108) mmol/L Carbon Dioxide (22-29) mmol/L Anion Gap (12-20) BUN (9-16) mg/dL Creatinine (0.5-1.4) mg/dL Estim Creat Clear Calc Estimated GFR POC Glucose (60-115) mg/dL Random Glucose (60-115) mg/dL Lactic Acid 5.8 H* (0.5-2.0) mmol/L Calcium (8.4-10.2) mg/dL Magnesium (1.6-2.6) mg/dL Total Bilirubin (0.0-1.0) mg/dL Direct Bilirubin (0.0-0.5) mg/dL AST (5-37) U/L ALT (0-40) U/L Alkaline Phosphatase (39-117) U/L Troponin I High Sens (<3.5-35.0) ng/L Total Protein (6.5-8.0) g/dL Albumin (3.5-5.0) g/dL Lipase (8-78) U/L Urine Color Urine Appearance Urine pH (5.0-8.0) Ur Specific [place] (1.005-1.025) Urine Protein (NEG-TRACE) MG/DL Urine Glucose (UA) (NEG) MG/DL Urine Ketones (NEG) MG/DL Urine Blood (NEG) Urine Nitrite (NEG) Ur Leukocyte Esterase (NEG) Urine RBC (0) /HPF Urine WBC (0-4) /HPF Ur Squamous Epith Cells /LPF Urine Bacteria /LPF Urine Mucus /LPF Urine Opiates Screen (Not Detect) Urine Fentanyl Screen (Not Detect) Ur Barbiturates Screen (Not Detect) Ur Phencyclidine Scrn (Not Detect) Ur Amphetamines Screen (Not Detect) U Benzodiazepines Scrn (Not Detect) Urine Cocaine Screen (Not Detect) U Marijuana (THC) Screen (Not Detect) Ethyl Alcohol < 10 mg/dL Acetone, Qual (Negative) COVID-19 (XANDER) Negative (Negative) COVID-19 Clin Com See Note 07/21/21 07/21/21 07/21/21 Range/Units 22:36 22:38 22:38 WBC (4.8-10.8) X10*3/uL RBC (4.60-5.80) X10*6/uL Hgb (14.0-18.0) g/dl Hct (42-52) % MCV (80-98) fL MCH (27.0-33.0) pg MCHC (31.0-36.0) g/dl RDW (11.0-16.0) % Plt Count (160-400) X10*3/uL MPV (9.4-12.4) fL Immature Gran % (Auto) (0.0-0.4) % Neut % (Auto) (45-73) % Lymph % (Auto) (20-40) % [place] % (Auto) (2-11) % Eos % (Auto) (0-4) % Baso % (Auto) (0-2) % Lymph # (Auto) (1.2-4.9) X10*3/uL [place] # (Auto) (0.1-1.2) X10*3/uL Eos # (Auto) (0.0-0.4) X10*3/uL Baso # (Auto) (0.0-0.2) X10*3/uL Abs Immat Gran (auto) (0.00-0.03) X10*3/uL Absolute Neuts (auto) (2.0-8.3) X10*3/uL Absolute Nucleated RBC (0.0-0.012) X10*3/uL Nucleated RBC % (auto) (0.0-0.2) /100WBC VBG pH (7.32-7.43) VBG pCO2 mmHg VBG pO2 mmHg VBG HCO3 (22-26) mmol/L VBG O2 Saturation % VBG Base Excess mmol/L Sodium (135-145) mmol/L Potassium (3.3-5.1) mmol/L Chloride (96-108) mmol/L Carbon Dioxide (22-29) mmol/L Anion Gap (12-20) BUN (9-16) mg/dL Creatinine (0.5-1.4) mg/dL Estim Creat Clear Calc Estimated GFR POC Glucose (60-115) mg/dL Random Glucose (60-115) mg/dL Lactic Acid (0.5-2.0) mmol/L Calcium (8.4-10.2) mg/dL Magnesium (1.6-2.6) mg/dL Total Bilirubin (0.0-1.0) mg/dL Direct Bilirubin (0.0-0.5) mg/dL AST (5-37) U/L ALT (0-40) U/L Alkaline Phosphatase (39-117) U/L Troponin I High Sens (<3.5-35.0) ng/L Total Protein (6.5-8.0) g/dL Albumin (3.5-5.0) g/dL Lipase (8-78) U/L Urine Color YELLOW Urine Appearance CLEAR Urine pH 6.0 (5.0-8.0) Ur Specific [place] 1.015 (1.005-1.025) Urine Protein 2+ H (NEG-TRACE) MG/DL Urine Glucose (UA) >=1000 H (NEG) MG/DL Urine Ketones 40 (NEG) MG/DL Urine Blood 1+ H (NEG) Urine Nitrite NEG (NEG) Ur Leukocyte Esterase NEG (NEG) Urine RBC 10-14 H (0) /HPF Urine WBC 0-2 (0-4) /HPF Ur Squamous Epith Cells NONE /LPF Urine Bacteria NONE /LPF Urine Mucus 1+ /LPF Urine Opiates Screen Not Detected (Not Detect) Urine Fentanyl Screen Not Detected (Not Detect) Ur Barbiturates Screen Not Detected (Not Detect) Ur Phencyclidine Scrn Not Detected (Not Detect) Ur Amphetamines Screen Not Detected (Not Detect) U Benzodiazepines Scrn Not Detected (Not Detect) Urine Cocaine Screen Not Detected (Not Detect) U Marijuana (THC) Screen POSITIVE H (Not Detect) Ethyl Alcohol mg/dL Acetone, Qual Negative (Negative) COVID-19 (XANDER) (Negative) COVID-19 Clin Com 07/21/21 07/22/21 07/22/21 Range/Units 23:35 01:24 01:25 WBC (4.8-10.8) X10*3/uL RBC (4.60-5.80) X10*6/uL Hgb (14.0-18.0) g/dl Hct (42-52) % MCV (80-98) fL MCH (27.0-33.0) pg MCHC (31.0-36.0) g/dl RDW (11.0-16.0) % Plt Count (160-400) X10*3/uL MPV (9.4-12.4) fL Immature Gran % (Auto) (0.0-0.4) % Neut % (Auto) (45-73) % Lymph % (Auto) (20-40) % [place] % (Auto) (2-11) % Eos % (Auto) (0-4) % Baso % (Auto) (0-2) % Lymph # (Auto) (1.2-4.9) X10*3/uL [place] # (Auto) (0.1-1.2) X10*3/uL Eos # (Auto) (0.0-0.4) X10*3/uL Baso # (Auto) (0.0-0.2) X10*3/uL Abs Immat Gran (auto) (0.00-0.03) X10*3/uL Absolute Neuts (auto) (2.0-8.3) X10*3/uL Absolute Nucleated RBC (0.0-0.012) X10*3/uL Nucleated RBC % (auto) (0.0-0.2) /100WBC VBG pH 7.41 (7.32-7.43) VBG pCO2 27 mmHg VBG pO2 56 mmHg VBG HCO3 17 L (22-26) mmol/L VBG O2 Saturation 82.0 % VBG Base Excess -5.0 mmol/L Sodium (135-145) mmol/L Potassium (3.3-5.1) mmol/L Chloride (96-108) mmol/L Carbon Dioxide (22-29) mmol/L Anion Gap (12-20) BUN (9-16) mg/dL Creatinine (0.5-1.4) mg/dL Estim Creat Clear Calc Estimated GFR POC Glucose 284 H (60-115) mg/dL Random Glucose (60-115) mg/dL Lactic Acid 4.1 H* (0.5-2.0) mmol/L Calcium (8.4-10.2) mg/dL Magnesium (1.6-2.6) mg/dL Total Bilirubin (0.0-1.0) mg/dL Direct Bilirubin (0.0-0.5) mg/dL AST (5-37) U/L ALT (0-40) U/L Alkaline Phosphatase (39-117) U/L Troponin I High Sens (<3.5-35.0) ng/L Total Protein (6.5-8.0) g/dL Albumin (3.5-5.0) g/dL Lipase (8-78) U/L Urine Color Urine Appearance Urine pH (5.0-8.0) Ur Specific [place] (1.005-1.025) Urine Protein (NEG-TRACE) MG/DL Urine Glucose (UA) (NEG) MG/DL Urine Ketones (NEG) MG/DL Urine Blood (NEG) Urine Nitrite (NEG) Ur Leukocyte Esterase (NEG) Urine RBC (0) /HPF Urine WBC (0-4) /HPF Ur Squamous Epith Cells /LPF Urine Bacteria /LPF Urine Mucus /LPF Urine Opiates Screen (Not Detect) Urine Fentanyl Screen (Not Detect) Ur Barbiturates Screen (Not Detect) Ur Phencyclidine Scrn (Not Detect) Ur Amphetamines Screen (Not Detect) U Benzodiazepines Scrn (Not Detect) Urine Cocaine Screen (Not Detect) U Marijuana (THC) Screen (Not Detect) Ethyl Alcohol mg/dL Acetone, Qual (Negative) COVID-19 (XANDER) (Negative) COVID-19 Clin Com <Dory Galvan, [employer] - Last Filed: 07/27/21 18:46> Lab Results 07/21/21 07/21/21 07/21/21 Range/Units 22:36 22:36 22:36 WBC 15.9 H (4.8-10.8) X10*3/uL RBC 4.90 (4.60-5.80) X10*6/uL Hgb 13.8 L (14.0-18.0) g/dl Hct 41.2 L (42-52) % MCV 84.1 (80-98) fL MCH 28.2 (27.0-33.0) pg MCHC 33.5 (31.0-36.0) g/dl RDW 16.4 H (11.0-16.0) % Plt Count 261 (160-400) X10*3/uL MPV 10.8 (9.4-12.4) fL Immature Gran % (Auto) 1.0 H (0.0-0.4) % Neut % (Auto) 88.9 H (45-73) % Lymph % (Auto) 7.1 L (20-40) % [place] % (Auto) 2.5 (2-11) % Eos % (Auto) 0.2 (0-4) % Baso % (Auto) 0.3 (0-2) % Lymph # (Auto) 1.1 L (1.2-4.9) X10*3/uL [place] # (Auto) 0.4 (0.1-1.2) X10*3/uL Eos # (Auto) 0.0 (0.0-0.4) X10*3/uL Baso # (Auto) 0.0 (0.0-0.2) X10*3/uL Abs Immat Gran (auto) 0.16 H (0.00-0.03) X10*3/uL Absolute Neuts (auto) 14.2 H (2.0-8.3) X10*3/uL Absolute Nucleated RBC 0.000 (0.0-0.012) X10*3/uL Nucleated RBC % (auto) 0.0 (0.0-0.2) /100WBC VBG pH (7.32-7.43) VBG pCO2 mmHg VBG pO2 mmHg VBG HCO3 (22-26) mmol/L VBG O2 Saturation % VBG Base Excess mmol/L Sodium 137 (135-145) mmol/L Potassium 4.5 (3.3-5.1) mmol/L Chloride 99 (96-108) mmol/L Carbon Dioxide 17 L (22-29) mmol/L Anion Gap 26 H (12-20) BUN 18 H (9-16) mg/dL Creatinine 1.45 H (0.5-1.4) mg/dL Estim Creat Clear Calc 54.7 Estimated GFR 52 POC Glucose (60-115) mg/dL Random Glucose 486 H* (60-115) mg/dL Lactic Acid (0.5-2.0) mmol/L Calcium 10.2 D (8.4-10.2) mg/dL Magnesium 1.5 L (1.6-2.6) mg/dL Total Bilirubin 0.6 (0.0-1.0) mg/dL Direct Bilirubin 0.3 (0.0-0.5) mg/dL AST 21 D (5-37) U/L ALT 41 H (0-40) U/L Alkaline Phosphatase 119 H (39-117) U/L Troponin I High Sens < 3.5 (<3.5-35.0) ng/L Total Protein 7.9 (6.5-8.0) g/dL Albumin 4.6 (3.5-5.0) g/dL Lipase 32 (8-78) U/L Urine Color Urine Appearance Urine pH (5.0-8.0) Ur Specific [place] (1.005-1.025) Urine Protein (NEG-TRACE) MG/DL Urine Glucose (UA) (NEG) MG/DL Urine Ketones (NEG) MG/DL Urine Blood (NEG) Urine Nitrite (NEG) Ur Leukocyte Esterase (NEG) Urine RBC (0) /HPF Urine WBC (0-4) /HPF Ur Squamous Epith Cells /LPF Urine Bacteria /LPF Urine Mucus /LPF Urine Opiates Screen (Not Detect) Urine Fentanyl Screen (Not Detect) Ur Barbiturates Screen (Not Detect) Ur Phencyclidine Scrn (Not Detect) Ur Amphetamines Screen (Not Detect) U Benzodiazepines Scrn (Not Detect) Urine Cocaine Screen (Not Detect) U Marijuana (THC) Screen (Not Detect) Ethyl Alcohol mg/dL Acetone, Qual (Negative) COVID-19 (XANDER) (Negative) COVID-19 Clin Com 07/21/21 07/21/21 07/21/21 Range/Units 22:36 22:36 22:36 WBC (4.8-10.8) X10*3/uL RBC (4.60-5.80) X10*6/uL Hgb (14.0-18.0) g/dl Hct (42-52) % MCV (80-98) fL MCH (27.0-33.0) pg MCHC (31.0-36.0) g/dl RDW (11.0-16.0) % Plt Count (160-400) X10*3/uL MPV (9.4-12.4) fL Immature Gran % (Auto) (0.0-0.4) % Neut % (Auto) (45-73) % Lymph % (Auto) (20-40) % [place] % (Auto) (2-11) % Eos % (Auto) (0-4) % Baso % (Auto) (0-2) % Lymph # (Auto) (1.2-4.9) X10*3/uL [place] # (Auto) (0.1-1.2) X10*3/uL Eos # (Auto) (0.0-0.4) X10*3/uL Baso # (Auto) (0.0-0.2) X10*3/uL Abs Immat Gran (auto) (0.00-0.03) X10*3/uL Absolute Neuts (auto) (2.0-8.3) X10*3/uL Absolute Nucleated RBC (0.0-0.012) X10*3/uL Nucleated RBC % (auto) (0.0-0.2) /100WBC VBG pH (7.32-7.43) VBG pCO2 mmHg VBG pO2 mmHg VBG HCO3 (22-26) mmol/L VBG O2 Saturation % VBG Base Excess mmol/L Sodium (135-145) mmol/L Potassium (3.3-5.1) mmol/L Chloride (96-108) mmol/L Carbon Dioxide (22-29) mmol/L Anion Gap (12-20) BUN (9-16) mg/dL Creatinine (0.5-1.4) mg/dL Estim Creat Clear Calc Estimated GFR POC Glucose (60-115) mg/dL Random Glucose (60-115) mg/dL Lactic Acid 5.8 H* (0.5-2.0) mmol/L Calcium (8.4-10.2) mg/dL Magnesium (1.6-2.6) mg/dL Total Bilirubin (0.0-1.0) mg/dL Direct Bilirubin (0.0-0.5) mg/dL AST (5-37) U/L ALT (0-40) U/L Alkaline Phosphatase (39-117) U/L Troponin I High Sens (<3.5-35.0) ng/L Total Protein (6.5-8.0) g/dL Albumin (3.5-5.0) g/dL Lipase (8-78) U/L Urine Color Urine Appearance Urine pH (5.0-8.0) Ur Specific [place] (1.005-1.025) Urine Protein (NEG-TRACE) MG/DL Urine Glucose (UA) (NEG) MG/DL Urine Ketones (NEG) MG/DL Urine Blood (NEG) Urine Nitrite (NEG) Ur Leukocyte Esterase (NEG) Urine RBC (0) /HPF Urine WBC (0-4) /HPF Ur Squamous Epith Cells /LPF Urine Bacteria /LPF Urine Mucus /LPF Urine Opiates Screen (Not Detect) Urine Fentanyl Screen (Not Detect) Ur Barbiturates Screen (Not Detect) Ur Phencyclidine Scrn (Not Detect) Ur Amphetamines Screen (Not Detect) U Benzodiazepines Scrn (Not Detect) Urine Cocaine Screen (Not Detect) U Marijuana (THC) Screen (Not Detect) Ethyl Alcohol < 10 mg/dL Acetone, Qual (Negative) COVID-19 (XANDER) Negative (Negative) COVID-19 Clin Com See Note 07/21/21 07/21/21 07/21/21 Range/Units 22:36 22:38 22:38 WBC (4.8-10.8) X10*3/uL RBC (4.60-5.80) X10*6/uL Hgb (14.0-18.0) g/dl Hct (42-52) % MCV (80-98) fL MCH (27.0-33.0) pg MCHC (31.0-36.0) g/dl RDW (11.0-16.0) % Plt Count (160-400) X10*3/uL MPV (9.4-12.4) fL Immature Gran % (Auto) (0.0-0.4) % Neut % (Auto) (45-73) % Lymph % (Auto) (20-40) % [place] % (Auto) (2-11) % Eos % (Auto) (0-4) % Baso % (Auto) (0-2) % Lymph # (Auto) (1.2-4.9) X10*3/uL [place] # (Auto) (0.1-1.2) X10*3/uL Eos # (Auto) (0.0-0.4) X10*3/uL Baso # (Auto) (0.0-0.2) X10*3/uL Abs Immat Gran (auto) (0.00-0.03) X10*3/uL Absolute Neuts (auto) (2.0-8.3) X10*3/uL Absolute Nucleated RBC (0.0-0.012) X10*3/uL Nucleated RBC % (auto) (0.0-0.2) /100WBC VBG pH (7.32-7.43) VBG pCO2 mmHg VBG pO2 mmHg VBG HCO3 (22-26) mmol/L VBG O2 Saturation % VBG Base Excess mmol/L Sodium (135-145) mmol/L Potassium (3.3-5.1) mmol/L Chloride (96-108) mmol/L Carbon Dioxide (22-29) mmol/L Anion Gap (12-20) BUN (9-16) mg/dL Creatinine (0.5-1.4) mg/dL Estim Creat Clear Calc Estimated GFR POC Glucose (60-115) mg/dL Random Glucose (60-115) mg/dL Lactic Acid (0.5-2.0) mmol/L Calcium (8.4-10.2) mg/dL Magnesium (1.6-2.6) mg/dL Total Bilirubin (0.0-1.0) mg/dL Direct Bilirubin (0.0-0.5) mg/dL AST (5-37) U/L ALT (0-40) U/L Alkaline Phosphatase (39-117) U/L Troponin I High Sens (<3.5-35.0) ng/L Total Protein (6.5-8.0) g/dL Albumin (3.5-5.0) g/dL Lipase (8-78) U/L Urine Color YELLOW Urine Appearance CLEAR Urine pH 6.0 (5.0-8.0) Ur Specific [place] 1.015 (1.005-1.025) Urine Protein 2+ H (NEG-TRACE) MG/DL Urine Glucose (UA) >=1000 H (NEG) MG/DL Urine Ketones 40 (NEG) MG/DL Urine Blood 1+ H (NEG) Urine Nitrite NEG (NEG) Ur Leukocyte Esterase NEG (NEG) Urine RBC 10-14 H (0) /HPF Urine WBC 0-2 (0-4) /HPF Ur Squamous Epith Cells NONE /LPF Urine Bacteria NONE /LPF Urine Mucus 1+ /LPF Urine Opiates Screen Not Detected (Not Detect) Urine Fentanyl Screen Not Detected (Not Detect) Ur Barbiturates Screen Not Detected (Not Detect) Ur Phencyclidine Scrn Not Detected (Not Detect) Ur Amphetamines Screen Not Detected (Not Detect) U Benzodiazepines Scrn Not Detected (Not Detect) Urine Cocaine Screen Not Detected (Not Detect) U Marijuana (THC) Screen POSITIVE H (Not Detect) Ethyl Alcohol mg/dL Acetone, Qual Negative (Negative) COVID-19 (XANDER) (Negative) COVID-19 Clin Com 07/21/21 07/22/21 07/22/21 Range/Units 23:35 01:24 01:25 WBC (4.8-10.8) X10*3/uL RBC (4.60-5.80) X10*6/uL Hgb (14.0-18.0) g/dl Hct (42-52) % MCV (80-98) fL MCH (27.0-33.0) pg MCHC (31.0-36.0) g/dl RDW (11.0-16.0) % Plt Count (160-400) X10*3/uL MPV (9.4-12.4) fL Immature Gran % (Auto) (0.0-0.4) % Neut % (Auto) (45-73) % Lymph % (Auto) (20-40) % [place] % (Auto) (2-11) % Eos % (Auto) (0-4) % Baso % (Auto) (0-2) % Lymph # (Auto) (1.2-4.9) X10*3/uL [place] # (Auto) (0.1-1.2) X10*3/uL Eos # (Auto) (0.0-0.4) X10*3/uL Baso # (Auto) (0.0-0.2) X10*3/uL Abs Immat Gran (auto) (0.00-0.03) X10*3/uL Absolute Neuts (auto) (2.0-8.3) X10*3/uL Absolute Nucleated RBC (0.0-0.012) X10*3/uL Nucleated RBC % (auto) (0.0-0.2) /100WBC VBG pH 7.41 (7.32-7.43) VBG pCO2 27 mmHg VBG pO2 56 mmHg VBG HCO3 17 L (22-26) mmol/L VBG O2 Saturation 82.0 % VBG Base Excess -5.0 mmol/L Sodium (135-145) mmol/L Potassium (3.3-5.1) mmol/L Chloride (96-108) mmol/L Carbon Dioxide (22-29) mmol/L Anion Gap (12-20) BUN (9-16) mg/dL Creatinine (0.5-1.4) mg/dL Estim Creat Clear Calc Estimated GFR POC Glucose 284 H (60-115) mg/dL Random Glucose (60-115) mg/dL Lactic Acid 4.1 H* (0.5-2.0) mmol/L Calcium (8.4-10.2) mg/dL Magnesium (1.6-2.6) mg/dL Total Bilirubin (0.0-1.0) mg/dL Direct Bilirubin (0.0-0.5) mg/dL AST (5-37) U/L ALT (0-40) U/L Alkaline Phosphatase (39-117) U/L Troponin I High Sens (<3.5-35.0) ng/L Total Protein (6.5-8.0) g/dL Albumin (3.5-5.0) g/dL Lipase (8-78) U/L Urine Color Urine Appearance Urine pH (5.0-8.0) Ur Specific [place] (1.005-1.025) Urine Protein (NEG-TRACE) MG/DL Urine Glucose (UA) (NEG) MG/DL Urine Ketones (NEG) MG/DL Urine Blood (NEG) Urine Nitrite (NEG) Ur Leukocyte Esterase (NEG) Urine RBC (0) /HPF Urine WBC (0-4) /HPF Ur Squamous Epith Cells /LPF Urine Bacteria /LPF Urine Mucus /LPF Urine Opiates Screen (Not Detect) Urine Fentanyl Screen (Not Detect) Ur Barbiturates Screen (Not Detect) Ur Phencyclidine Scrn (Not Detect) Ur Amphetamines Screen (Not Detect) U Benzodiazepines Scrn (Not Detect) Urine Cocaine Screen (Not Detect) U Marijuana (THC) Screen (Not Detect) Ethyl Alcohol mg/dL Acetone, Qual (Negative) COVID-19 (XANDER) (Negative) COVID-19 Clin Com <Lalito Holloway MD - Last Filed: 07/21/21 23:56> Discharge Plan Discharge Clinical Impression: Atypical chest pain, Hyperglycemia, Elevated lactic acid level, Leukocytosis <Dory Galvan NP - Last Filed: 07/27/21 18:46> Patient Disposition: Home, Self-Care <Dory Galvan NP - Last Filed: 07/27/21 18:46> Prescriptions: No Action atorvastatin 40 mg tablet 1 tab PO DAILY RF: 0 trazodone 50 mg tablet 1 tab PO BEDTIME RF: 0 metoprolol succinate 100 mg tablet extended release 24 hr 1 tab PO DAILY RF: 0 amlodipine 5 mg tablet 1 tab PO DAILY RF: 0 omeprazole 40 mg capsule,delayed release(DR/EC) 1 cap PO DAILY@0630 RF: 0 hydrocortisone 1 % cream 1 g topical BID PRN (Reason: Rash) RF: 0 lisinopril 40 mg tablet 1 tab PO DAILY RF: 0 insulin lispro [Humalog KwikPen Insulin] 100 unit/mL insulin pen See Protocol unit subcut TIDAC RF: 0 escitalopram oxalate 10 mg tablet 1 tab PO DAILY RF: 0 Lantus Solostar U-100 Insulin 100 unit/mL (3 mL) insulin pen 26 unit subcut BEDTIME RF: 0 Anoro Ellipta 62.5-25 mcg/actuation blister with device 62.5 mcg inhalation DAILY RF: 0 ondansetron HCl [Zofran] 4 mg tablet 4 mg PO Q8H PRN (Reason: nausea and vomiting) 3 Days Qty: 7 RF: 0 <Dory Galvan NP - Last Filed: 07/27/21 18:46> Referrals: Mckenna Jones MD [Primary Care Provider] - 1 Week <Dory Galvan NP - Last Filed: 07/27/21 18:46> Discharge Date/Time: 07/22/21 03:04 <Dory Galvan NP - Last Filed: 07/27/21 18:46>
[2021-07-21] MEDS: Morphine Sulfate 4 MG/ML CARTRIDGE IVPUSH (22:39)
[2021-07-21] MEDS: ondansetron HCL 4 MG/2 ML VIAL IVPUSH (22:39)
[2021-07-21] MEDS: 0.9 % Sodium Chloride 1,000 ML 999 ML IV (22:40)
[2021-07-21 22:48] LABS: MANUAL DIFF FLAG NO
[2021-07-21 22:50] LABS: Basophils Percent Auto 0.3 % (0-2); Eosinophils Percent Auto 0.2 % (0-4); Hematocrit 41.2 % (42-52); Hemoglobin 13.8 g/dl (14.0-18.0); Imm Gran Abs Auto 0.16 X10*3/uL (0.00-0.03); Lymphocytes Absolute Auto 1.1 X10*3/uL (1.2-4.9); Lymphocytes Percent Auto 7.1 % (20-40); Mean Corpuscular HGB Conc 33.5 g/dl (31.0-36.0); Mean Corpuscular Hemoglobin 28.2 pg (27.0-33.0); Mean Corpuscular Volume 84.1 fL (80-98); Mean Platelet Volume 10.8 fL (9.4-12.4); Monocytes Absolute Auto 0.4 X10*3/uL (0.1-1.2); Monocytes Percent Auto 2.5 % (2-11); Neutrophils Absolute Auto 14.2 X10*3/uL (2.0-8.3); Neutrophils Percent Auto 88.9 % (45-73); Platelet Count 261 X10*3/uL (160-400); Red Cell Distribution Width 16.4 % (11.0-16.0); White Blood Count 15.9 X10*3/uL (4.8-10.8)
[2021-07-21 22:51] LABS: Appearance Urine CLEAR; Color Urine YELLOW; Glucose Urine UA >=1000 MG/DL (NEG); Leukocyte Esterase Urine NEG (NEG); Nitrite Urine NEG (NEG); Specific Gravity - Urine 1.015 (1.005-1.025); UACC Culture Trigger NO; Urine Blood 1+ (NEG); Urine Ketones 40 MG/DL (NEG); Urine Protein 2+ MG/DL (NEG-TRACE)
[2021-07-21 22:58] LABS: Mucus Urine 1+ /LPF
[2021-07-21 22:59] LABS: WBC Urine 0-2 /HPF (0-4)
[2021-07-21 23:02] LABS: Ethanol < 10 mg/dL
[2021-07-21 23:05] LABS: Amphetamine Screen Urine Not Detected (Not Detect); Barbiturates, Urine Not Detected (Not Detect); Benzodiazepines Screen Urine Not Detected (Not Detect); Cannabinoid Screen Urine POSITIVE (Not Detect); Cocaine Screen Urine Not Detected (Not Detect); Fentanyl, urine Not Detected (Not Detect); Opiate Screen Urine Not Detected (Not Detect); Phencyclidine Screen Urine Not Detected (Not Detect)
[2021-07-21 23:05] LABS: COVID-19 Test Negative (Negative)
[2021-07-21 23:09] LABS: Troponin-I High Sensitivity < 3.5 ng/L (<3.5-35.0)
[2021-07-21 23:10] LABS: Alanine Aminotransferase 41 U/L (0-40); Albumin Level 4.6 g/dL (3.5-5.0); Alkaline Phosphatase 119 U/L (39-117); Anion Gap 26 (12-20); Aspartate Amino Transferase 21 U/L (5-37); Bilirubin Direct 0.3 mg/dL (0.0-0.5); Bilirubin Total 0.6 mg/dL (0.0-1.0); Blood Urea Nitrogen 18 mg/dL (9-16); Calcium 10.2 mg/dL (8.4-10.2); Carbon Dioxide 17 mmol/L (22-29); Chloride 99 mmol/L (96-108); Creatinine Clr Calc Pharmacy 54.7; Estimated Glomerular Filt Rate 52; Glucose Random 486 mg/dL (60-115); Lactic Acid 5.8 mmol/L (0.5-2.0); Lipase 32 U/L (8-78); Magnesium 1.5 mg/dL (1.6-2.6); Potassium 4.5 mmol/L (3.3-5.1); Sodium 137 mmol/L (135-145); Total Protein 7.9 g/dL (6.5-8.0)
[2021-07-21] MEDS: Magnesium Sulfate/H2O 2 GM/50 ML PIGGYBACK IV (23:33)
[2021-07-21 23:34] LABS: Acetone, serum QL Negative (Negative)
[2021-07-21] MEDS: Insulin Regular, Human 100 UNIT/ML 3 ML VIAL 6 UNIT IVPUSH (23:34)
[2021-07-21] MEDS: 0.9 % Sodium Chloride 1,877.88 ML 1877.88 ML IV (23:34)
[2021-07-21 23:40] LABS: VBG HCO3 17 mmol/L (22-26); VBG pCO2 27 mmHg; VBG pH 7.41 (7.32-7.43); VBG pO2 56 mmHg
[2021-07-21 23:45] LABS: Venous Blood Gas Refer to POC result
[2021-07-22] MEDS: Morphine Sulfate 4 MG/ML CARTRIDGE IVPUSH
[2021-07-22] MEDS: diphenhydrAMINE HCL 50 MG/ML VIAL 25 MG IVPUSH (00:01)
[2021-07-22] MEDS: Metoclopramide HCl 10 MG/2 ML VIAL IVPUSH (00:01)
[2021-07-22 05:10] LABS: Reflex Lactate? Lactic Acid Added
[2021-07-22 05:52] LABS: Glucose, Whole Blood 284 mg/dL (60-115)
[2021-07-22] MEDS: iohexoL 350 MG/ML 100 ML INFUS..BTL 70 ML IV (06:01)
[2021-07-22 06:55] LABS: Lactic Acid 4.1 mmol/L (0.5-2.0)
[2021-07-22 08:17] LABS: Reflex Lactate? Lactic Acid Added
== END 2021-07-22 03:04 | disposition home or self-care (01) ==
PROVIDERS: Nurse Practitioner Family; Emergency Provider Emergency Medicine; PCP Internal Medicine
DX: R07.89 Other chest pain (principal); E11.65 Type 2 diabetes mellitus with hyperglycemia; D72.829 Elevated white blood cell count, unspecified; Z20.822 Contact with and (suspected) exposure to COVID-19; Z79.899 Other long term (current) drug therapy; F17.210 Nicotine dependence, cigarettes, uncomplicated; Z71.6 Tobacco abuse counseling
CPT/HCPCS: 36415; 71045; 71275; 80048; 80076; 80307; 81001; 82009; 82077; 82803; 82947; 83605; 83690; 83735; 84484; 85025; 87040; 87635; 93005; 96361; 96365; 96366; 96375; 96376; 99283; 99285; J1200; J2270; J2405; J2765; J3475; Q9967

== ENCOUNTER 2021-10-09 15:35 | Emergency (ER) | payer OTHER, SELFPAY ==
--- NOTE | ~2021-10-09 | XR_ITS ---
EXAMINATION: XR CHEST CLINICAL INFORMATION: Shortness of breath. COMPARISON: 07/21/2021 chest radiograph. Chest CTA dated 07/22/2021. TECHNIQUE: Frontal view of the chest was obtained. FINDINGS: The lungs are clear. An epicardial fat pad is again noted at the left lung base. The heart and mediastinal structures are unremarkable. XR/XR chest 1V IMPRESSION: No acute cardiopulmonary process.
[2021-10-09 15:36] VITALS: BP 170/81; PULSE 79; RESP 16; TEMP 36.7; O2SAT 100; BMI 22.9
[2021-10-09 16:22] LABS: COVID-19 Test Negative (Negative)
[2021-10-09 16:28] VITALS: PULSE 77; RESP 20; O2SAT 98
--- NOTE | 2021-10-09 16:36 | ECG_ITS ---
Test Reason : SOB Blood Pressure : / mmHG Vent. Rate : 064 BPM Atrial Rate : 064 BPM P-R Int : 118 ms QRS Dur : 080 ms QT Int : 376 ms P-R-T Axes : 048 042 016 degrees QTc Int : 387 ms Normal sinus rhythm Normal ECG When compared with ECG of 21-JUL-2021 23:10, QT has shortened Referred By: Dory Galvan Electronically Signed By:Sadiq Rivera
--- NOTE | 2021-10-09 16:37 | ED_ITS ---
HPI - SOB/Dyspnea General Chief Complaint: Dyspnea Stated Complaint: COPD - diff breathing Time Seen by Provider: 10/09/21 15:48 Source: patient Mode of arrival: ambulatory Limitations: no limitations History of Present Illness HPI Narrative: 46-year-old male with history of COPD on oxygen at nighttime, peripheral arterial disease, hypertension, hyperlipidemia, diabetes here with complaints of chest pain, shortness of breath, cough >1 month. No fevers, chills. No leg swelling or pain. Also feeling some body aches. Related Data Home Medications Medication Instructions Recorded Confirmed aspirin 81 mg tablet,delayed 81 mg PO DAILY 09/22/20 06/16/21 release gabapentin 300 mg capsule 300 mg PO TID 09/22/20 06/16/21 amlodipine 5 mg tablet 1 tab PO DAILY 06/16/21 06/16/21 atorvastatin 40 mg tablet 1 tab PO DAILY 06/16/21 06/16/21 escitalopram oxalate 10 mg tablet 1 tab PO DAILY 06/16/21 06/16/21 hydrocortisone 1 % topical cream 1 g TOPICAL BID PRN 06/16/21 06/16/21 insulin glargine 100 unit/mL (3 26 unit SUBCUT BEDTIME 06/16/21 06/16/21 mL) subcutaneous pen (Lantus Solostar U-100 Insulin) insulin lispro 100 unit/mL See Protocol SUBCUT TIDAC 06/16/21 06/16/21 subcutaneous pen (Humalog KwikPen (U-100) Insulin) lisinopril 40 mg tablet 1 tab PO DAILY 06/16/21 06/16/21 metoprolol succinate 100 mg 1 tab PO DAILY 06/16/21 06/16/21 tablet,extended release 24 hr omeprazole 40 mg capsule,delayed 1 cap PO DAILY@0630 06/16/21 06/16/21 release trazodone 50 mg tablet 1 tab PO BEDTIME 06/16/21 06/16/21 umeclidinium 62.5 mcg-vilanterol 62.5 mcg INHALATION DAILY 06/16/21 06/16/21 25 mcg/actuation powdr for inhalation (Anoro Ellipta) Previous Rx's Medication Instructions Recorded ondansetron HCl 4 mg tablet 4 mg PO Q8H PRN 3 Days #7 tab 06/18/21 (Zofran) azithromycin 250 mg tablet See Rx Instructions .ROUTE 10/09/21 .COMPLEX #6 tab uuczgdwuwqnekom-lmvnxjz-HZ 30 5 ml PO Q6H PRN #50 ml 10/09/21 mg-10 mg-100 mg/5 mL oral syrup Allergies Allergy/AdvReac Type Severity Reaction Status Date / Time metformin [METFORMIN] AdvReac Mild DIARRHEA, Verified 09/22/20 13:18 nausea and vomiting Review of Systems Review of Systems: Yes all other systems are reviewed and are negative Constitutional: Constitutional: Reports no additional constitutional complaints, Reports body ache(s), Denies chills, Denies fever(s), Denies headache(s) and Denies weakness Eyes: Eyes: Reports no additional eye complaints and Denies change in vision ENT: Reports system reviewed and no additional complaints, except as documented, Denies dizziness, Denies headache(s), Denies nasal congestion, Denie s nasal discharge and Denies neck pain Cardiovascular: Cardiovascular: Reports no additional cardiovascular complaints, Reports chest pain, Denies leg edema and Reports dyspnea Respiratory: Respiratory: Reports no additional respiratory complaints, Reports cough and Reports dyspnea Gastrointestinal: Gastrointestinal: Reports no additional gastrointestinal complaints, Denies abdominal pain, Denies diarrhea, Denies nausea and Denies vom iting Genitourinary: Genitourinary: Denies urinary incontinence Musculoskeletal: Musculoskeletal: Reports no additional musculoskeletal complaints, Denies back pain, Denies arthralgias, Denies joint swelling, Denies neck pain, Denies numbness and Denies tingling Integumentary/Breasts: Skin/Breast: Reports system reviewed and no additional complaints, except as docu and Denies rash Neurologic: Reports system reviewed and no additional complaints, except as documented, Denies Abnormal speech present, Denies dizziness, Denies headache(s), Denies numbness, Denies tingling and Denies weakness [facility] Past Medical History Attestation statement: The following information was validated with the patient. Source: old records reviewed and nursing notes reviewed Medical History Anxiety Asthma Diabetes HLD (hyperlipidemia) HTN (hypertension) Hypercholesteremia PAD (peripheral artery disease) Surgical History S/P angiogram of extremity Social History Social History Alcohol intake: unknown Patient Tobacco Use Status: Current everyday Tobacco user Tobacco use type: Cigarette Cigarettes Per Day: 10 Years Smoked: 29 Second Hand Smoke Exposure: Yes Advance Directives: No Advance Directives Information Provided: No service: No Current occupational status: unemployed Physical Exam Vital Signs: Vital Signs: Last Vital Signs Temp 99.3 F 10/09/21 17:25 Pulse 76 10/09/21 17:25 Resp 16 10/09/21 17:25 BP 171/84 H 10/09/21 17:25 Pulse Ox 98 10/09/21 17:25 BMI result Body Mass Index 22.9 Const: General: cooperative, healthy appearing, comfortable and no acute distress Orientation/consciousness: patient oriented x3 Limitations: no limitations HENMT: Head: Yes normal to inspection Ears: hearing grossly normal bilaterally and TM's normal bilaterally General nose exam: Normal external nose present Face and sinus: Yes normal facial exam Mouth: Normal oral and palatal mucosa present Throat: Yes posterior oropharynx normal, Yes tonsils normal and Yes uvula midline Eyes: General: appearance normal, both eyes and all related structures Pupils: Equal, round and reactive pupils present Neck: Neck: Yes normal visual inspection, Yes full ROM, Yes no lymphadenopathy and Yes no meningeal signs Chest: Chest palpation & inspection: normal inspection of the chest Resp: Effort & Inspection: normal respiratory effort Auscultation: clear to auscultation bilaterally Cardio: Rate: regular rate Rhythm: regular rhythm Peripheral pulses: Peripheral pulses 2+ throughout GI: Inspection: Yes normal to inspection Palpation (GI): Soft to palpation and nontender Auscultation: normal bowel sounds Back/Spine/Pelvis: Thoracic/Lumbar Spine: thoracic and lumbar spine normal to inspection Skin: General skin exam: no rashes or lesions noted Neuro: General: patient oriented x3, no meningeal signs, no focal motor deficits and normal sensation to monofilament Cranial nerves: Yes Equal, round and reactive pupils present Cognition (Neuro): normal cognition Speech: No Abnormal speech present Gait exam (Neuro): Normal gait present Motor exam (neuro): 5/5 motor strength present throughout Extrem: General: Yes normal to inspection, Yes no pedal edema and Yes no calf tenderness Course Course Course Narrative: 46 yo male here with complaints of chest pain, shortness of breath, cough, body aches >1 month. Patient resting comfortably in a chair, speaking full sentences, lung sounds are clear throughout. Will check CXR, EKG, covid screen, labs, COVID screen. 1744-reviewed labs which show leukocytosis change from previous, renal function unchanged from previous, mild hyperglycemia. Chest x-ray shows no acute finding. EKG and troponin are unremarkable. D-dimer is pending [id number] is negative. Low concern for PE with negative D-dimer and no clinical findings for a DVT addition to no hypoxia, no tachycardia or tachypnea. Less likely ACS with negative troponin EKG with symptoms greater than 1 month. Consider pneumonia however less likely with no fever, no hypoxia, normal chest x-ray and chronic leukocytosis. Patient does tell me that he is coughing up some yellow or green sputum. Will treat with course of antibiotics for presumed bronchitis. Recommend patien t continued uses inhaler at home. There is no wheezing or tachypnea and so we discussed holding prednisone as the patient has very labile blood sugars. Reviewed worrisome signs and symptoms and when to return to the emergency department. Comfortable discharge home. MDM - SOB/Dyspnea Medical Records Attestation: I reviewed the patient's medical records. Lab Data Attestation: I reviewed the patient's lab results. Result diagrams: 10/09/21 16:49 10/09/21 16:50 Labs: Lab Results 10/09/21 10/09/21 10/09/21 Range/Units 15:51 16:49 16:49 WBC 16.7 H (4.8-10.8) X10*3/uL RBC 4.94 (4.60-5.80) X10*6/uL Hgb 14.2 (14.0-18.0) g/dl Hct 43.1 (42.0-52.0) % MCV 87.2 (80.0-98.0) fL MCH 28.7 (27.0-33.0) pg MCHC 32.9 (31.0-36.0) g/dl RDW 14.1 (11.0-16.0) % Plt Count 277 (160-400) X10*3/uL MPV 10.4 (9.4-12.4) fL Immature Gran % (Auto) Cancelled Neut % (Auto) Cancelled Lymph % (Auto) Cancelled [place] % (Auto) Cancelled Eos % (Auto) Cancelled Baso % (Auto) Cancelled Lymph # (Auto) Cancelled [place] # (Auto) Cancelled Eos # (Auto) Cancelled Baso # (Auto) Cancelled Abs Immat Gran (auto) Cancelled Absolute Neuts (auto) Cancelled Absolute Nucleated RBC 0.000 (0.0-0.012) X10*3/uL Nucleated RBC % (auto) 0.0 (0.0-0.2) /100WBC Neutrophils % (Manual) 79 H (45-73) % Band Neutrophils % 0 L (3-5) % Lymphocytes % (Manual) 12 L (20-40) % Monocytes % (Manual) 9 (2-11) % Abs Neuts (Manual) 13.2 H (2.0-8.3) X10*3/uL Lymphocytes # (Manual) 2.0 (1.2-4.9) X10*3/uL Monocytes # (Manual) 1.5 H (0.1-1.2) X10*3/uL Platelet Estimate NORMAL (NORMAL) Plt Morphology Comment NORMAL RBC Morphology NORMAL PT 11.3 (9.9-13.0) SEC INR 1.0 (0.9-1.1) D-Dimer High Sensitivty < 150 NG/ML Sodium (135-145) mmol/L Potassium (3.3-5.1) mmol/L Chloride (96-108) mmol/L Carbon Dioxide (22-29) mmol/L Anion Gap (12-20) BUN (9-16) mg/dL Creatinine (0.5-1.4) mg/dL Estim Creat Clear Calc Estimated GFR Random Glucose (60-115) mg/dL Calcium (8.4-10.2) mg/dL Magnesium (1.6-2.6) mg/dL Total Bilirubin (0.0-1.0) mg/dL Direct Bilirubin (0.0-0.5) mg/dL AST (5-37) U/L ALT (0-40) U/L Alkaline Phosphatase (39-117) U/L Troponin I High Sens (<3.5-35.0) ng/L Total Protein (6.5-8.0) g/dL Albumin (3.5-5.0) g/dL COVID-19 (XANDER) Negative (Negative) COVID-19 Clin Com See Note 10/09/21 10/09/21 Range/Units 16:50 16:50 WBC (4.8-10.8) X10*3/uL RBC (4.60-5.80) X10*6/uL Hgb (14.0-18.0) g/dl Hct (42.0-52.0) % MCV (80.0-98.0) fL MCH (27.0-33.0) pg MCHC (31.0-36.0) g/dl RDW (11.0-16.0) % Plt Count (160-400) X10*3/uL MPV (9.4-12.4) fL Immature Gran % (Auto) Neut % (Auto) Lymph % (Auto) [place] % (Auto) Eos % (Auto) Baso % (Auto) Lymph # (Auto) [place] # (Auto) Eos # (Auto) Baso # (Auto) Abs Immat Gran (auto) Absolute Neuts (auto) Absolute Nucleated RBC (0.0-0.012) X10*3/uL Nucleated RBC % (auto) (0.0-0.2) /100WBC Neutrophils % (Manual) (45-73) % Band Neutrophils % (3-5) % Lymphocytes % (Manual) (20-40) % Monocytes % (Manual) (2-11) % Abs Neuts (Manual) (2.0-8.3) X10*3/uL Lymphocytes # (Manual) (1.2-4.9) X10*3/uL Monocytes # (Manual) (0.1-1.2) X10*3/uL Platelet Estimate (NORMAL) Plt Morphology Comment RBC Morphology PT (9.9-13.0) SEC INR (0.9-1.1) D-Dimer High Sensitivty NG/ML Sodium 136 (135-145) mmol/L Potassium 5.1 (3.3-5.1) mmol/L Chloride 100 (96-108) mmol/L Carbon Dioxide 23 (22-29) mmol/L Anion Gap 18 (12-20) BUN 19 H (9-16) mg/dL Creatinine 1.41 H (0.5-1.4) mg/dL Estim Creat Clear Calc 56.3 Estimated GFR 54 Random Glucose 274 H D (60-115) mg/dL Calcium 9.5 D (8.4-10.2) mg/dL Magnesium 1.5 L (1.6-2.6) mg/dL Total Bilirubin 0.6 (0.0-1.0) mg/dL Direct Bilirubin 0.2 (0.0-0.5) mg/dL AST 20 (5-37) U/L ALT 22 (0-40) U/L Alkaline Phosphatase 119 H (39-117) U/L Troponin I High Sens 3.6 (<3.5-35.0) ng/L Total Protein 7.3 (6.5-8.0) g/dL Albumin 4.1 (3.5-5.0) g/dL COVID-19 (XANDER) (Negative) COVID-19 Clin Com Imaging Data Chest x-ray: Attestation: I personally reviewed and interpreted this imaging study as follows: Radiologist's impression: EXAMINATION: XR CHEST CLINICAL INFORMATION: Shortness of breath. COMPARISON: 07/21/2021 chest radiograph. Chest CTA dated 07/22/2021. TECHNIQUE: Frontal view of the chest was obtained. FINDINGS: The lungs are clear. An epicardial fat pad is again noted at the left lung base. The heart and mediastinal structures are unremarkable. XR/XR chest 1V IMPRESSION: No acute cardiopulmonary process. ? ECG Data Attestation: I personally reviewed and interpreted this ECG as follows: ECG interpretation date: 10/09/21 ECG interpretation time: 17:05 Interpretation: Normal sinus rhythm with a rate of 64, normal IA, normal QRS, normal QT Discharge Plan Discharge Clinical Impression: Bronchitis Patient Disposition: Home, Self-Care Instructions: Acute Bronchitis (ED) Additional Instructions: Your lab work, EKG, Chest x-ray, covid screen all look to be at your baseline Increase fluids, rest Alternate motrin or tylenol if able as needed Follow-up with your PCP Prescriptions: New azithromycin 250 mg tablet See Rx Instructions .ROUTE .COMPLEX Qty: 6 RF: 0 olqctrvvsgkitnj-ozjdjcr-NN 30-10-100 mg/5 mL syrup 5 ml PO Q6H PRN (Reason: cough) Qty: 50 RF: 0 No Action atorvastatin 40 mg tablet 1 tab PO DAILY RF: 0 trazodone 50 mg tablet 1 tab PO BEDTIME RF: 0 metoprolol succinate 100 mg tablet extended release 24 hr 1 tab PO DAILY RF: 0 amlodipine 5 mg tablet 1 tab PO DAILY RF: 0 omeprazole 40 mg capsule,delayed release(DR/EC) 1 cap PO DAILY@0630 RF: 0 hydrocortisone 1 % cream 1 g topical BID PRN (Reason: Rash) RF: 0 lisinopril 40 mg tablet 1 tab PO DAILY RF: 0 insulin lispro [Humalog KwikPen Insulin] 100 unit/mL insulin pen See Protocol unit subcut TIDAC RF: 0 escitalopram oxalate 10 mg tablet 1 tab PO DAILY RF: 0 Lantus Solostar U-100 Insulin 100 unit/mL (3 mL) insulin pen 26 unit subcut BEDTIME RF: 0 Anoro Ellipta 62.5-25 mcg/actuation blister with device 62.5 mcg inhalation DAILY RF: 0 ondansetron HCl [Zofran] 4 mg tablet 4 mg PO Q8H PRN (Reason: nausea and vomiting) 3 Days Qty: 7 RF: 0 Referrals: Zari Henry MD [Primary Care Provider] - 2 days Interventions: ED Discharge Assessment Last Done: 10/09/21 18:21 Discharge Date/Time: 10/09/21 18:40
[2021-10-09 16:55] LABS: Hematocrit 43.1 % (42.0-52.0); Hemoglobin 14.2 g/dl (14.0-18.0); Mean Corpuscular HGB Conc 32.9 g/dl (31.0-36.0); Mean Corpuscular Hemoglobin 28.7 pg (27.0-33.0); Mean Corpuscular Volume 87.2 fL (80.0-98.0); Mean Platelet Volume 10.4 fL (9.4-12.4); Platelet Count 277 X10*3/uL (160-400); Red Blood Count 4.94 X10*6/uL (4.60-5.80); Red Cell Distribution Width 14.1 % (11.0-16.0)
[2021-10-09 16:56] LABS: WBC ABN SCTR FOR CBC 1
[2021-10-09 17:08] LABS: Prothrombin Time 11.3 SEC (9.9-13.0)
[2021-10-09 17:11] LABS: Alanine Aminotransferase 22 U/L (0-40); Albumin Level 4.1 g/dL (3.5-5.0); Alkaline Phosphatase 119 U/L (39-117); Anion Gap 18 (12-20); Aspartate Amino Transferase 20 U/L (5-37); Bilirubin Direct 0.2 mg/dL (0.0-0.5); Bilirubin Total 0.6 mg/dL (0.0-1.0); Blood Urea Nitrogen 19 mg/dL (9-16); Calcium 9.5 mg/dL (8.4-10.2); Carbon Dioxide 23 mmol/L (22-29); Chloride 100 mmol/L (96-108); Creatinine Clr Calc Pharmacy 56.3; Estimated Glomerular Filt Rate 54; Glucose Random 274 mg/dL (60-115); Magnesium 1.5 mg/dL (1.6-2.6); Potassium 5.1 mmol/L (3.3-5.1); Sodium 136 mmol/L (135-145); Total Protein 7.3 g/dL (6.5-8.0)
[2021-10-09 17:14] LABS: Troponin-I High Sensitivity 3.6 ng/L (<3.5-35.0)
[2021-10-09 17:17] LABS: Band Neutrophils Percent 0 % (3-5); Lymphocytes Percent Manual 12 % (20-40); Monocytes Absolute Manual 1.5 X10*3/uL (0.1-1.2); Monocytes Percent Manual 9 % (2-11); Neutrophils Absolute Manual 13.2 X10*3/uL (2.0-8.3); Neutrophils Percent Manual 79 % (45-73); White Blood Count 16.7 X10*3/uL (4.8-10.8)
[2021-10-09 17:18] LABS: Platelet Estimate NORMAL (NORMAL); Platelet Morphology Comment NORMAL; RBC Morphology NORMAL
[2021-10-09 17:25] VITALS: BP 171/84; PULSE 76; RESP 16; TEMP 37.4; O2SAT 98
[2021-10-09 17:56] LABS: D Dimer High Sensitivity < 150 NG/ML
== END 2021-10-09 18:40 | disposition home or self-care (01) ==
PROVIDERS: Nurse Practitioner Family; Emergency Provider Emergency Medicine; PCP Internal Medicine
DX: J40 Bronchitis, not specified as acute or chronic (principal); Z20.822 Contact with and (suspected) exposure to COVID-19; D72.829 Elevated white blood cell count, unspecified; I10 Essential (primary) hypertension; E11.9 Type 2 diabetes mellitus without complications; E78.5 Hyperlipidemia, unspecified; Z79.82 Long term (current) use of aspirin; Z79.02 Long term (current) use of antithrombotics/antiplatelets; Z79.4 Long term (current) use of insulin; Z79.899 Other long term (current) drug therapy
CPT/HCPCS: 36415; 71045; 80048; 80076; 83735; 84484; 85007; 85027; 85379; 85610; 87635; 93005; 99283; 99284

== ENCOUNTER 2022-01-02 20:55 | Emergency (ER) | payer OTHER, SELFPAY ==
--- NOTE | ~2022-01-02 | XR_ITS ---
EXAMINATION: XR CHEST CLINICAL INFORMATION: Shortness of breath COMPARISON: Previous chest x-ray most recent September 2021 TECHNIQUE: 2 views of the chest were obtained. FINDINGS: The cardiac and mediastinal contours are stable. There is retrosternal scarring or subsegmental atelectasis probably in the lingula. Lungs are otherwise clear. There is no pleural effusion or pneumothorax. Bony structures are unremarkable. XR/XR chest 2V IMPRESSION: Retrosternal scarring or subsegmental atelectasis probably in lingula. Otherwise unremarkable exam.
[2022-01-02 21:09] VITALS: BP 117/78; PULSE 87; RESP 18; TEMP 36.9; O2SAT 100; BMI 24.1
--- NOTE | 2022-01-02 21:12 | ECG_ITS ---
Test Reason : CP Blood Pressure : / mmHG Vent. Rate : 079 BPM Atrial Rate : 079 BPM P-R Int : 116 ms QRS Dur : 082 ms QT Int : 370 ms P-R-T Axes : 034 051 001 degrees QTc Int : 424 ms Normal sinus rhythm Minimal voltage criteria for LVH, may be normal variant ( Sokolow-Ahmadi ) Borderline ECG When compared with ECG of 09-OCT-2021 17:05, No significant change was found Referred By: Generic ED Physician Electronically Signed By:INOCENCIO BERGMAN MD
[2022-01-02 21:43] LABS: MANUAL DIFF FLAG NO
[2022-01-02 21:55] LABS: Basophils Absolute Auto 0.1 X10*3/uL (0.0-0.2); Basophils Percent Auto 0.3 % (0-2); Eosinophils Absolute Auto 0.1 X10*3/uL (0.0-0.4); Eosinophils Percent Auto 0.5 % (0-4); Hematocrit 42.1 % (42.0-52.0); Hemoglobin 13.8 g/dl (14.0-18.0); Imm Gran Abs Auto 0.08 X10*3/uL (0.00-0.03); Imm Gran Pct Auto 0.6 % (0.0-0.4); Lymphocytes Absolute Auto 2.5 X10*3/uL (1.2-4.9); Lymphocytes Percent Auto 17.1 % (20-40); Mean Corpuscular HGB Conc 32.8 g/dl (31.0-36.0); Mean Corpuscular Hemoglobin 26.7 pg (27.0-33.0); Mean Corpuscular Volume 81.4 fL (80.0-98.0); Mean Platelet Volume 10.3 fL (9.4-12.4); Monocytes Absolute Auto 0.9 X10*3/uL (0.1-1.2); Monocytes Percent Auto 6.3 % (2-11); Neutrophils Absolute Auto 10.9 x10*3/uL (2.0-8.3); Neutrophils Percent Auto 75.2 % (45-73); Platelet Count 353 X10*3/uL (160-400); Red Blood Count 5.17 X10*6/uL (4.60-5.80); Red Cell Distribution Width 15.8 % (11.0-16.0); White Blood Count 14.5 X10*3/uL (4.8-10.8)
[2022-01-02 22:00] LABS: Alanine Aminotransferase 18 U/L (0-40); Albumin Level 4.1 g/dL (3.5-5.0); Alkaline Phosphatase 116 U/L (39-117); Anion Gap 17 (12-20); Aspartate Amino Transferase 22 U/L (5-37); Bilirubin Total 0.5 mg/dL (0.0-1.0); Blood Urea Nitrogen 17 mg/dL (9-16); Calcium 9.5 mg/dL (8.4-10.2); Carbon Dioxide 23 mmol/L (22-29); Chloride 99 mmol/L (96-108); Creatinine Clr Calc Pharmacy 41.8; Estimated Glomerular Filt Rate 38; Glucose Random 259 mg/dL (60-115); Lipase 125 U/L (8-78); Potassium 4.4 mmol/L (3.3-5.1); Sodium 135 mmol/L (135-145); Total Protein 7.2 g/dL (6.5-8.0)
[2022-01-02 22:06] LABS: Troponin-I High Sensitivity < 3.5 ng/L (<3.5-35.0)
[2022-01-02 22:21] LABS: COVID-19 Test Negative (Negative)
[2022-01-02 23:07] LABS: Appearance Urine HAZY; Color Urine DK YELLOW; Glucose Urine UA NEG (NEG); Leukocyte Esterase Urine NEG (NEG); Nitrite Urine NEG (NEG); PH 5.5 (5.0-8.0); Specific Gravity - Urine >= 1.030 (1.005-1.025); UACC Culture Trigger NO; Urine Blood 2+ (NEG); Urine Ketones 15 MG/DL (NEG); Urine Protein 3+ MG/DL (NEG-TRACE)
[2022-01-02 23:13] LABS: WBC Urine 0 /HPF (0-4)
[2022-01-02 23:14] LABS: Bacteria Urine 1+ /LPF; Mucus Urine 1+ /LPF; Squamous Epithelial Cell Urine 1+ /LPF
[2022-01-03] VITALS: BP 160/89; PULSE 79; RESP 16; O2SAT 98
--- NOTE | 2022-01-03 00:23 | ED.GENADULT ---
HPI - General Adult General Chief complaint: General Medical Stated complaint: cough,n/v/d, chest pain Time Seen by Provider: 01/03/22 00:23 Source: patient Mode of arrival: ambulatory History of Present Illness HPI narrative: 46-year-old male who presents with 1 week of intermittent sharp chest pains not associated with exertion and improved with Tylenol, no associated new cough, fevers, chills. Patient also complained some mild nausea/vomiting/diarrhea but does not think that he consumed any contaminated food. Patient states otherwise the reported lower extremity pain in the triage note that this pain is chronic and he has a current referral to follow-up with vascular surgery. In general, patient states he ?simply feels unwell?. Related Data Home Medications Medication Instructions Recorded Confirmed aspirin 81 mg tablet,delayed 81 mg PO DAILY 09/22/20 06/16/21 release gabapentin 300 mg capsule 300 mg PO TID 09/22/20 06/16/21 amlodipine 5 mg tablet 1 tab PO DAILY 06/16/21 06/16/21 atorvastatin 40 mg tablet 1 tab PO DAILY 06/16/21 06/16/21 escitalopram oxalate 10 mg tablet 1 tab PO DAILY 06/16/21 06/16/21 hydrocortisone 1 % topical cream 1 g TOPICAL BID PRN 06/16/21 06/16/21 insulin glargine 100 unit/mL (3 26 unit SUBCUT BEDTIME 06/16/21 06/16/21 mL) subcutaneous pen (Lantus Solostar U-100 Insulin) insulin lispro 100 unit/mL See Protocol SUBCUT TIDAC 06/16/21 06/16/21 subcutaneous pen (Humalog KwikPen (U-100) Insulin) lisinopril 40 mg tablet 1 tab PO DAILY 06/16/21 06/16/21 metoprolol succinate 100 mg 1 tab PO DAILY 06/16/21 06/16/21 tablet,extended release 24 hr omeprazole 40 mg capsule,delayed 1 cap PO DAILY@0630 06/16/21 06/16/21 release trazodone 50 mg tablet 1 tab PO BEDTIME 06/16/21 06/16/21 umeclidinium 62.5 mcg-vilanterol 62.5 mcg INHALATION DAILY 06/16/21 06/16/21 25 mcg/actuation powdr for inhalation (Anoro Ellipta) Previous Rx's Medication Instructions Recorded ondansetron HCl 4 mg tablet 4 mg PO Q8H PRN 3 Days #7 tab 06/18/21 (Zofran) azithromycin 250 mg tablet See Rx Instructions .ROUTE 10/09/21 .COMPLEX #6 tab jyzhiqukubagkpx-nkaknlv-SG 30 5 ml PO Q6H PRN #50 ml 10/09/21 mg-10 mg-100 mg/5 mL oral syrup ondansetron 4 mg disintegrating 4 mg PO Q8H PRN #7 tab 01/03/22 tablet Allergies Allergy/AdvReac Type Severity Reaction Status Date / Time dulaglutide [From Trulicity] Allergy Unknown Verified 01/02/22 21:08 metformin [METFORMIN] AdvReac Mild DIARRHEA, Verified 09/22/20 13:18 nausea and vomiting Review of Systems Review of Systems: Pertinent positives and negatives as stated in HPI 10 point review of systems is otherwise negative. PMFSH Past Medical History Source: nursing notes reviewed Medical History Anxiety Asthma Diabetes HLD (hyperlipidemia) HTN (hypertension) Hypercholesteremia PAD (peripheral artery disease) Surgical History S/P angiogram of extremity Social History Social History Alcohol intake: unknown Patient Tobacco Use Status: Current everyday Tobacco user Tobacco use type: Cigarette Cigarettes Per Day: 10 Years Smoked: 29 Second Hand Smoke Exposure: Yes Advance Directives: No Advance Directives Information Provided: No service: No Current occupational status: unemployed Physical Exam ED Vital Signs: Vital Signs - 24 hr 01/02/22 21:09 01/03/22 00:00 01/03/22 03:19 Temperature 98.5 F Pulse Rate 87 79 72 Respiratory Rate 18 16 12 Blood Pressure 117/78 160/89 H 131/70 Pulse Oximetry 100 98 96 01/03/22 04:21 Temperature 98.1 F Pulse Rate 85 Respiratory Rate 16 Blood Pressure 114/92 H Pulse Oximetry 98 BMI result Body Mass Index 24.1 VITAL SIGNS: Reviewed. GENERAL: Well developed, well nourished, in no acute distress. HEAD: Normocephalic/atraumatic EYES: PERRLA, EOMI OROPHARYNX: no oral lesions noted, posterior pharynx clear LUNGS: Normal breath sounds, no tachypnea/wheeze/rhonchi/rales. CARDIOVASCULAR: Regular rate and rhythm without noted murmurs ABDOMEN: Soft, mild epigastric,, non-distended with bowel sounds. MUSCULOSKELETAL: No tenderness, deformities, or effusions noted on gross inspection. EXTREMITIES: No cyanosis, clubbing or edema. SKIN: Inspection of the skin reveals no rashes NEUROLOGIC: Alert and oriented x 4. Strength and sensation to light touch were grossly intact x 4. Course Course Course Narrative: 46-year-old male who otherwise appears well and history and clinical presentation suggestive of possible viral symptoms however on review of all investigations there are no acute findings other than a slight worsening of creatinine level as well as an elevated lipase level. Otherwise, no clinical suspicion for acute threatened limb. Patient is oxygenating well on room air and has easy unlabored breathing. On review of all investigations there is a noted elevated lipase and given patient's mild nausea and vomiting suspect that this may be contributing. Patient states he has not drink in a few days . After receiving IV fluids as well as antinausea medication on re-evaluation patient reports feeling better and is noted to tolerate oral intake. He now feels comfortable with being discharged home with the antinausea medication and following up with his primary care provider in the morning. Medical Decision Making Lab Data Result diagrams: 01/02/22 21:35 01/02/22 21:35 Labs: Lab Results 01/02/22 01/02/22 01/02/22 Range/Units 21:35 21:35 21:35 WBC 14.5 H (4.8-10.8) X10*3/uL RBC 5.17 (4.60-5.80) X10*6/uL Hgb 13.8 L (14.0-18.0) g/dl Hct 42.1 (42.0-52.0) % MCV 81.4 (80.0-98.0) fL MCH 26.7 L (27.0-33.0) pg MCHC 32.8 (31.0-36.0) g/dl RDW 15.8 (11.0-16.0) % Plt Count 353 D (160-400) X10*3/uL MPV 10.3 (9.4-12.4) fL Immature Gran % (Auto) 0.6 H (0.0-0.4) % Neut % (Auto) 75.2 H (45-73) % Lymph % (Auto) 17.1 L (20-40) % [place] % (Auto) 6.3 (2-11) % Eos % (Auto) 0.5 (0-4) % Baso % (Auto) 0.3 (0-2) % Lymph # (Auto) 2.5 (1.2-4.9) X10*3/uL [place] # (Auto) 0.9 (0.1-1.2) X10*3/uL Eos # (Auto) 0.1 (0.0-0.4) X10*3/uL Baso # (Auto) 0.1 (0.0-0.2) X10*3/uL Abs Immat Gran (auto) 0.08 H (0.00-0.03) X10*3/uL Absolute Neuts (auto) 10.9 H (2.0-8.3) x10*3/uL Absolute Nucleated RBC 0.000 (0.0-0.012) X10*3/uL Nucleated RBC % (auto) 0.0 (0.0-0.2) /100WBC Sodium 135 (135-145) mmol/L Potassium 4.4 (3.3-5.1) mmol/L Chloride 99 (96-108) mmol/L Carbon Dioxide 23 (22-29) mmol/L Anion Gap 17 (12-20) BUN 17 H (9-16) mg/dL Creatinine 1.90 H (0.5-1.4) mg/dL Estim Creat Clear Calc 41.8 Estimated GFR 38 POC Glucose (60-115) mg/dL Random Glucose 259 H (60-115) mg/dL Calcium 9.5 (8.4-10.2) mg/dL Total Bilirubin 0.5 (0.0-1.0) mg/dL AST 22 (5-37) U/L ALT 18 (0-40) U/L Alkaline Phosphatase 116 (39-117) U/L Troponin I High Sens < 3.5 (<3.5-35.0) ng/L Total Protein 7.2 (6.5-8.0) g/dL Albumin 4.1 (3.5-5.0) g/dL Lipase 125 H (8-78) U/L Urine Color Urine Appearance Urine pH (5.0-8.0) Ur Specific [place] (1.005-1.025) Urine Protein (NEG-TRACE) MG/DL Urine Glucose (UA) (NEG) MG/DL Urine Ketones (NEG) MG/DL Urine Blood (NEG) Urine Nitrite (NEG) Ur Leukocyte Esterase (NEG) Urine RBC (0) /HPF Urine WBC (0-4) /HPF Ur Squamous Epith Cells /LPF Urine Bacteria /LPF Urine Mucus /LPF COVID-19 (XANDER) (Negative) COVID-19 Clin Com 01/02/22 01/02/22 01/03/22 Range/Units 21:35 22:59 00:39 WBC (4.8-10.8) X10*3/uL RBC (4.60-5.80) X10*6/uL Hgb (14.0-18.0) g/dl Hct (42.0-52.0) % MCV (80.0-98.0) fL MCH (27.0-33.0) pg MCHC (31.0-36.0) g/dl RDW (11.0-16.0) % Plt Count (160-400) X10*3/uL MPV (9.4-12.4) fL Immature Gran % (Auto) (0.0-0.4) % Neut % (Auto) (45-73) % Lymph % (Auto) (20-40) % [place] % (Auto) (2-11) % Eos % (Auto) (0-4) % Baso % (Auto) (0-2) % Lymph # (Auto) (1.2-4.9) X10*3/uL [place] # (Auto) (0.1-1.2) X10*3/uL Eos # (Auto) (0.0-0.4) X10*3/uL Baso # (Auto) (0.0-0.2) X10*3/uL Abs Immat Gran (auto) (0.00-0.03) X10*3/uL Absolute Neuts (auto) (2.0-8.3) x10*3/uL Absolute Nucleated RBC (0.0-0.012) X10*3/uL Nucleated RBC % (auto) (0.0-0.2) /100WBC Sodium (135-145) mmol/L Potassium (3.3-5.1) mmol/L Chloride (96-108) mmol/L Carbon Dioxide (22-29) mmol/L Anion Gap (12-20) BUN (9-16) mg/dL Creatinine (0.5-1.4) mg/dL Estim Creat Clear Calc Estimated GFR POC Glucose 201 H (60-115) mg/dL Random Glucose (60-115) mg/dL Calcium (8.4-10.2) mg/dL Total Bilirubin (0.0-1.0) mg/dL AST (5-37) U/L ALT (0-40) U/L Alkaline Phosphatase (39-117) U/L Troponin I High Sens (<3.5-35.0) ng/L Total Protein (6.5-8.0) g/dL Albumin (3.5-5.0) g/dL Lipase (8-78) U/L Urine Color DK YELLOW Urine Appearance HAZY Urine pH 5.5 (5.0-8.0) Ur Specific [place] >= 1.030 H (1.005-1.025) Urine Protein 3+ H (NEG-TRACE) MG/DL Urine Glucose (UA) NEG (NEG) MG/DL Urine Ketones 15 (NEG) MG/DL Urine Blood 2+ H (NEG) Urine Nitrite NEG (NEG) Ur Leukocyte Esterase NEG (NEG) Urine RBC 5-9 H (0) /HPF Urine WBC 0 (0-4) /HPF Ur Squamous Epith Cells 1+ /LPF Urine Bacteria 1+ /LPF Urine Mucus 1+ /LPF COVID-19 (XANDER) Negative (Negative) COVID-19 Clin Com See Note Discharge Plan Discharge Clinical Impression: Pancreatitis Patient Disposition: Home, Self-Care Instructions: Pancreatitis (ED) Additional Instructions: 1. Resume all home medications as prescribed. 2. You have been provided with antinausea medication and should use this to increase your fluid hydration, especially with water. In addition, please stick to a bland diet for the next 24-48 hours. 3. Follow-up with your primary care provider this morning. Return to the ER for worsening symptoms. Prescriptions: New ondansetron 4 mg tablet,disintegrating 4 mg PO Q8H PRN (Reason: nausea and vomiting) Qty: 7 0RF No Action atorvastatin 40 mg tablet 1 tab PO DAILY 0RF trazodone 50 mg tablet 1 tab PO BEDTIME 0RF metoprolol succinate 100 mg tablet extended release 24 hr 1 tab PO DAILY 0RF amlodipine 5 mg tablet 1 tab PO DAILY 0RF omeprazole 40 mg capsule,delayed release(DR/EC) 1 cap PO DAILY@0630 0RF hydrocortisone 1 % cream 1 g topical BID PRN (Reason: Rash) 0RF lisinopril 40 mg tablet 1 tab PO DAILY 0RF insulin lispro [Humalog KwikPen Insulin] 100 unit/mL insulin pen See Protocol unit subcut TIDAC 0RF Protocol: Insulin Correction Scale Less than or equal to 110 ---- Give (units): 0 111 to 150 Give (units): 0 151 to 200 Give (units): 2 201 to 250 Give (units): 4 251 to 300 Give (units): 6 301 to 350 Give (units): 8 Greater than 350 Give (units): 10 Call MD if Blood Glucose > : 350 escitalopram oxalate 10 mg tablet 1 tab PO DAILY 0RF Lantus Solostar U-100 Insulin 100 unit/mL (3 mL) insulin pen 26 unit subcut BEDTIME 0RF Anoro Ellipta 62.5-25 mcg/actuation blister with device 62.5 mcg inhalation DAILY 0RF ondansetron HCl [Zofran] 4 mg tablet 4 mg PO Q8H PRN (Reason: nausea and vomiting) 3 Days Qty: 7 0RF azithromycin 250 mg tablet See Rx Instructions .ROUTE .COMPLEX Qty: 6 0RF Rx Instructions: For 250 mg dose pack: take 500 mg today (day 1), then 250 mg for 4 days (days 2-5) buishlglalvwqpk-inhqute-YA 30-10-100 mg/5 mL syrup 5 ml PO Q6H PRN (Reason: cough) Qty: 50 0RF Referrals: Zari Henry MD [Primary Care Provider] - 2 days
[2022-01-03 00:43] LABS: Glucose, Whole Blood 201 mg/dL (60-115)
[2022-01-03] MEDS: 0.9 % Sodium Chloride 1,000 ML 999 ML IV (02:38)
[2022-01-03] MEDS: ondansetron HCL 4 MG/2 ML VIAL IVPUSH (02:38)
[2022-01-03 03:19] VITALS: BP 131/70; PULSE 72; RESP 12; O2SAT 96
[2022-01-03 04:21] VITALS: BP 114/92; PULSE 85; RESP 16; TEMP 36.7; O2SAT 98
[2022-01-03] MEDS: Lidocaine HCl Viscous 2 % 15 ML SOLUTION 10 ML MUCOUS MEM (05:41)
[2022-01-03] MEDS: Magnesium Hydrox/Alum Hydrox 30 ML ORAL.SUSP PO (05:41)
[2022-01-03 05:47] VITALS: BP 146/84; PULSE 98; RESP 16
== END 2022-01-03 05:59 | disposition home or self-care (01) ==
PROVIDERS: Emergency Provider Student in an Organized Health Care Education/Training Program; PCP Internal Medicine
DX: K85.90 Acute pancreatitis without necrosis or infection, unspecified (principal); E11.9 Type 2 diabetes mellitus without complications; I10 Essential (primary) hypertension; E78.5 Hyperlipidemia, unspecified; F17.200 Nicotine dependence, unspecified, uncomplicated; Z20.822 Contact with and (suspected) exposure to COVID-19; Z79.82 Long term (current) use of aspirin; Z79.02 Long term (current) use of antithrombotics/antiplatelets; Z79.4 Long term (current) use of insulin
CPT/HCPCS: 71046; 80053; 81001; 82947; 83690; 84484; 85025; 87635; 93005; 96361; 96374; 99283; 99284; J2405

== ENCOUNTER 2022-02-03 12:37 | Emergency (ER) | payer OTHER, SELFPAY ==
[2022-02-03 13:07] VITALS: BP 144/76; PULSE 78; RESP 19; TEMP 36.1; O2SAT 98; BMI 21.7
[2022-02-03 13:49] LABS: MANUAL DIFF FLAG NO
[2022-02-03 13:50] LABS: Basophils Absolute Auto 0.1 X10*3/uL (0.0-0.2); Basophils Percent Auto 0.3 % (0-2); Eosinophils Absolute Auto 0.2 X10*3/uL (0.0-0.4); Eosinophils Percent Auto 1.4 % (0-4); Hematocrit 38.5 % (42.0-52.0); Hemoglobin 12.2 g/dl (14.0-18.0); Imm Gran Abs Auto 0.08 X10*3/uL (0.00-0.03); Imm Gran Pct Auto 0.5 % (0.0-0.4); Lymphocytes Absolute Auto 2.2 X10*3/uL (1.2-4.9); Lymphocytes Percent Auto 13.9 % (20-40); Mean Corpuscular HGB Conc 31.7 g/dl (31.0-36.0); Mean Corpuscular Hemoglobin 26.2 pg (27.0-33.0); Mean Corpuscular Volume 82.6 fL (80.0-98.0); Mean Platelet Volume 10.7 fL (9.4-12.4); Monocytes Absolute Auto 1.2 X10*3/uL (0.1-1.2); Monocytes Percent Auto 7.6 % (2-11); Neutrophils Absolute Auto 11.8 x10*3/uL (2.0-8.3); Neutrophils Percent Auto 76.3 % (45-73); Platelet Count 245 X10*3/uL (160-400); Red Blood Count 4.66 X10*6/uL (4.60-5.80); Red Cell Distribution Width 16.7 % (11.0-16.0); White Blood Count 15.5 X10*3/uL (4.8-10.8)
[2022-02-03 14:04] LABS: Alanine Aminotransferase 20 U/L (0-40); Albumin Level 3.7 g/dL (3.5-5.0); Alkaline Phosphatase 111 U/L (39-117); Anion Gap 13 (12-20); Aspartate Amino Transferase 18 U/L (5-37); Bilirubin Total 0.3 mg/dL (0.0-1.0); Blood Urea Nitrogen 20 mg/dL (9-16); Calcium 9.2 mg/dL (8.4-10.2); Carbon Dioxide 22 mmol/L (22-29); Chloride 108 mmol/L (96-108); Creatinine Clr Calc Pharmacy 54.8; Estimated Glomerular Filt Rate 51; Glucose Random 275 mg/dL (60-115); Lipase 85 U/L (8-78); Potassium 5.2 mmol/L (3.3-5.1); Sodium 138 mmol/L (135-145); Total Protein 6.5 g/dL (6.5-8.0)
[2022-02-03 14:44] LABS: Appearance Urine CLEAR; Color Urine YELLOW; Glucose Urine UA >=1000 MG/DL (NEG); Leukocyte Esterase Urine NEG (NEG); Nitrite Urine NEG (NEG); PH 5.5 (5.0-8.0); Specific Gravity - Urine 1.025 (1.005-1.025); UACC Culture Trigger NO; Urine Blood 2+ (NEG); Urine Ketones 5 MG/DL (NEG); Urine Protein 2+ MG/DL (NEG-TRACE)
[2022-02-03 14:54] LABS: Squamous Epithelial Cell Urine 1+ /LPF; WBC Urine 0-2 /HPF (0-4)
[2022-02-03 20:10] VITALS: BP 190/90; PULSE 67; RESP 19; TEMP 37.2; O2SAT 98
--- NOTE | 2022-02-03 20:10 | PC.NURSE ---
patient wanting to leave at this time. RN discussed risk and benefits of leaving at this time without further care. patient instructed to call PCP in AM and to return to ED if he has any issues during the night. patient BG on monitor 329 at this time. denies
== END 2022-02-03 23:06 | disposition left against medical advice (07) ==
PROVIDERS: Emergency Provider Emergency Medicine; PCP Internal Medicine
DX: E11.65 Type 2 diabetes mellitus with hyperglycemia (principal); R10.9 Unspecified abdominal pain; R06.02 Shortness of breath
CPT/HCPCS: 36415; 80053; 81001; 83690; 85025; 99283

== ENCOUNTER 2022-07-31 20:46 | Inpatient (IN) | payer OTHER, SELFPAY ==
--- NOTE | ~2022-07-31 | XR_ITS ---
EXAMINATION: XR CHEST CLINICAL INFORMATION: Pneumonia, follow-up COMPARISON: Portable upright AP chest 07/31/2022, 2 view chest 01/02/2022 TECHNIQUE: 2 views of the chest were obtained. FINDINGS: Heart size normal. There is even distribution vascularity. Small bibasilar effusions blunting the costophrenic sulci, greater on right, mildly increased. The right upper lobe airspace opacities are decreased. Left mid zone opacity stable. There are bilateral medial basilar opacities which are increased. XR/XR chest 2V IMPRESSION: -Bilateral medial basilar opacities increased. -Small bibasilar effusions slightly increased. -Right upper lobe infiltrate decreased. Left mid zone opacities stable.
--- NOTE | ~2022-07-31 | XR_ITS ---
EXAMINATION: XR CHEST CLINICAL INFORMATION: Shortness of breath COMPARISON: 08/03/2022 TECHNIQUE: Frontal view of the chest was obtained. FINDINGS: Lung volumes are symmetric. Multifocal patchy regions of opacity are present bilaterally, similar to prior. Small right pleural effusion has decreased from prior. No appreciable pneumothorax. The cardiomediastinal silhouette is stable. No acute osseous findings are seen. XR/XR chest 1V IMPRESSION: Decreased small right pleural effusion. Similar appearance of multifocal patchy bilateral airspace opacities compared to prior.
--- NOTE | ~2022-07-31 | XR_ITS ---
EXAMINATION: XR CHEST CLINICAL INFORMATION: Shortness of breath. COMPARISON: Chest radiograph 01/02/2022. CT angiography chest 07/22/2021. TECHNIQUE: Frontal view of the chest was obtained. FINDINGS: Multifocal airspace opacities are identified with findings most pronounced in the inferior aspect of the right upper pulmonary lobe abutting the minor fissure. Focal airspace opacity is additionally noted in the left middle lung zone peripherally. Diffuse vascular indistinctness is present along with diffuse fine and medium pulmonary reticular opacities. Lamont B lines are suggested in the left and right lung bases. The cardiac silhouette is normal in size. Mild blunting of the left right costophrenic sulci is noted with findings most pronounced in the right. No pneumothoraces visualized. XR/XR chest 1V IMPRESSION: *Multifocal airspace disease of the lungs with findings most pronounced in the right upper pulmonary lobe and left middle lung zone. Findings are suspicious for infection. *Diffuse vascular indistinctness and diffuse pulmonary reticular opacities with developing bibasilar Lamont B line. Findings are suspicious for moderate interstitial pulmonary edema. *Small bilateral pleural effusions.
--- NOTE | 2022-07-31 20:48 | ED_ITS ---
HPI - SOB/Dyspnea General Chief Complaint: Upper Respiratory Symptoms Stated Complaint: sob Time Seen by Provider: 07/31/22 20:48 Source: EMS and old records reviewed Mode of arrival: EMS History of Present Illness HPI Narrative: Patient history of hypertension, HLD, diabetes, peptic ulcer disease, anxiety YARELIS on 2 L of oxygen recently admitted and discharged on 07/25 from [facility] for pulmonary edema echo done showed ejection fraction 55-60% came for acute shortness of breath started since morning saturating 84% on 3 L feeling weak and bloated patient was not discharged on furosemide, at [facility] CTA was negative no chest pain , patient arrived on BiPAP saturating 93% Related Data Home Medications Medication Instructions Recorded Confirmed aspirin 81 mg tablet,delayed 81 mg PO DAILY 09/22/20 06/16/21 release gabapentin 300 mg capsule 300 mg PO TID 09/22/20 06/16/21 amlodipine 5 mg tablet 1 tab PO DAILY 06/16/21 06/16/21 atorvastatin 40 mg tablet 1 tab PO DAILY 06/16/21 06/16/21 escitalopram oxalate 10 mg tablet 1 tab PO DAILY 06/16/21 06/16/21 hydrocortisone 1 % topical cream 1 g topical BID PRN Rash 06/16/21 06/16/21 insulin glargine 100 unit/mL (3 26 unit subcut BEDTIME 06/16/21 06/16/21 mL) subcutaneous pen (Lantus Solostar U-100 Insulin) insulin lispro 100 unit/mL See Protocol subcut TIDAC 06/16/21 06/16/21 subcutaneous pen (Humalog KwikPen (U-100) Insulin) lisinopril 40 mg tablet 1 tab PO DAILY 06/16/21 06/16/21 metoprolol succinate 100 mg 1 tab PO DAILY 06/16/21 06/16/21 tablet,extended release 24 hr omeprazole 40 mg capsule,delayed 1 cap PO DAILY@0630 06/16/21 06/16/21 release trazodone 50 mg tablet 1 tab PO BEDTIME 06/16/21 06/16/21 umeclidinium 62.5 mcg-vilanterol 62.5 mcg inhalation DAILY 06/16/21 06/16/21 25 mcg/actuation powdr for inhalation (Anoro Ellipta) Previous Rx's Medication Instructions Recorded ondansetron HCl 4 mg tablet 4 mg PO Q8H PRN nausea and 06/18/21 (Zofran) vomiting 3 days #7 tabs azithromycin 250 mg tablet See Rx Instructions PO .COMPLEX #6 10/09/21 tabs zlovaamtqswqzgo-wavgvla-UE 30 5 ml PO Q6H PRN cough #50 mL 10/09/21 mg-10 mg-100 mg/5 mL oral syrup ondansetron 4 mg disintegrating 4 mg PO Q8H PRN nausea and 01/03/22 tablet vomiting #7 tabs Allergies Allergy/AdvReac Type Severity Reaction Status Date / Time dulaglutide [From Trulicity] Allergy Unknown Verified 01/02/22 21:08 metformin [METFORMIN] AdvReac Mild DIARRHEA, Verified 09/22/20 13:18 nausea and vomiting Review of Systems Review of Systems: Yes all other systems are reviewed and are negative [facility] Past Medical History Medical History Anxiety Asthma Diabetes HLD (hyperlipidemia) HTN (hypertension) Hypercholesteremia PAD (peripheral artery disease) Surgical History S/P angiogram of extremity Social History Social History Alcohol intake: current Alcohol intake frequency: holidays/special occasions only Patient Tobacco Use Status: Current everyday Tobacco user Tobacco use type: Cigarette Cigarettes Per Day: 10 Years Smoked: 29 Smoked in Last 30 Days: Yes Second Hand Smoke Exposure: Yes Use of substances other than those prescribed or required for medical reasons: Yes Substance Use Type: Marijuana Substance Use Frequency: Occasionally Advance Directives: No service: No Current occupational status: unemployed Physical Exam Vital Signs: Vital Signs: Last Vital Signs Temp 98.6 F 07/31/22 22:38 Pulse 87 08/01/22 00:02 Resp 20 08/01/22 00:02 BP 155/78 H 08/01/22 00:02 Pulse Ox 96 08/01/22 00:02 O2 Del Method 08/01/22 00:02 O2 Flow Rate 15 08/01/22 00:02 Oxygen Flow Rate 15 07/31/22 22:42 BMI result Body Mass Index 25.2 Appearance: Alert. Oriented X3. In moderate distress Eyes: PERRLA, No Nystagmus ENT: Pharynx normal. Oral Mucosa moist Neck: Normal inspection. Neck supple. CVS: Normal heart rate and rhythm. Pulses normal. Respiratory: No respiratory distress. Equal air entry bilateral, decreased air entry bilateral with occasional wheezing Abdomen: Soft and nontender. Bowel sounds are present, no mass palpable, no CVA tenderness Skin: Skin warm and dry. Normal skin color. Normal skin turgor. Extremities: No lower extremity edema. No calf tenderness Neuro: Oriented X 3. No motor deficit. No sensory deficit.No cerebellar signs , cranial nerves II-XII intact MDM - SOB/Dyspnea MDM Narrative Medical decision making narrative: Patient with acute shortness of breath hypoxia with history of sleep apnea and mild COPD and CHF of unknown etiology with normal LV functions no diastolic dysfunction. Chest x-ray showed bilateral infiltrate with labs showed leukocytosis slightly elevated BNP having the mixed picture of CHF with bilateral pneumonia patient was given high-flow oxygen using hurts on nasal cannula IV antibiotics IV Rocephin and doxycycline felt better will admit patient to hospitalist service Differential Diagnosis Differential diagnosis: Likely acute exacerbation of chronic obstructive airways disease, congestive heart failure, pneumonia and asthma with exacerbation Lab Data Attestation: I reviewed the patient's lab results. Result diagrams: 07/31/22 21:03 07/31/22 21:03 Labs: Lab Results 07/31/22 07/31/22 07/31/22 Range/Units 21:03 21:03 21:03 WBC 17.8 H (4.8-10.8) X10*3/uL RBC 3.56 L D (4.60-5.80) X10*6/uL Hgb 9.8 L (14.0-18.0) g/dl Hct 30.2 L D (42.0-52.0) % MCV 84.8 (80.0-98.0) fL MCH 27.5 (27.0-33.0) pg MCHC 32.5 (31.0-36.0) g/dl RDW 16.8 H (11.0-16.0) % Plt Count 421 H D (160-400) X10*3/uL MPV 9.6 (9.4-12.4) fL Immature Gran % (Auto) 1.1 H (0.0-0.4) % Neut % (Auto) 78.0 H (45-73) % Lymph % (Auto) 12.4 L (20-40) % [place] % (Auto) 6.8 (2-11) % Eos % (Auto) 1.4 (0-4) % Baso % (Auto) 0.3 (0-2) % Lymph # (Auto) 2.2 (1.2-4.9) X10*3/uL [place] # (Auto) 1.2 (0.1-1.2) X10*3/uL Eos # (Auto) 0.3 (0.0-0.4) X10*3/uL Baso # (Auto) 0.1 (0.0-0.2) X10*3/uL Abs Immat Gran (auto) 0.20 H (0.00-0.03) X10*3/uL Absolute Neuts (auto) 13.9 H (2.0-8.3) x10*3/uL Absolute Nucleated RBC 0.000 (0.0-0.012) X10*3/uL Nucleated RBC % (auto) 0.0 (0.0-0.2) /100WBC PT 10.7 (10.0-13.1) SEC INR 0.9 (0.9-1.1) D-Dimer High Sensitivty 269 NG/ML Sodium 142 (135-145) mmol/L Potassium 4.4 (3.3-5.1) mmol/L Chloride 110 H (96-108) mmol/L Carbon Dioxide 21 L (22-29) mmol/L Anion Gap 15 (12-20) BUN 19 H (9-16) mg/dL Creatinine 1.30 (0.5-1.4) mg/dL Estim Creat Clear Calc 60.4 Estimated GFR 59 Random Glucose 188 H (60-115) mg/dL Lactic Acid (0.5-2.0) mmol/L Calcium 8.6 D (8.4-10.2) mg/dL Total Bilirubin < 0.2 (0.0-1.0) mg/dL AST 16 (5-37) U/L ALT 29 (0-40) U/L Alkaline Phosphatase 133 H (39-117) U/L Troponin I High Sens (<3.5-35.0) ng/L B-Natriuretic Peptide (<100) pg/mL Total Protein 6.4 L (6.5-8.0) g/dL Albumin 3.6 (3.5-5.0) g/dL COVID-19 (XANDER) (Negative) COVID-19 Clin Com 07/31/22 07/31/22 07/31/22 Range/Units 21:03 21:03 21:03 WBC (4.8-10.8) X10*3/uL RBC (4.60-5.80) X10*6/uL Hgb (14.0-18.0) g/dl Hct (42.0-52.0) % MCV (80.0-98.0) fL MCH (27.0-33.0) pg MCHC (31.0-36.0) g/dl RDW (11.0-16.0) % Plt Count (160-400) X10*3/uL MPV (9.4-12.4) fL Immature Gran % (Auto) (0.0-0.4) % Neut % (Auto) (45-73) % Lymph % (Auto) (20-40) % [place] % (Auto) (2-11) % Eos % (Auto) (0-4) % Baso % (Auto) (0-2) % Lymph # (Auto) (1.2-4.9) X10*3/uL [place] # (Auto) (0.1-1.2) X10*3/uL Eos # (Auto) (0.0-0.4) X10*3/uL Baso # (Auto) (0.0-0.2) X10*3/uL Abs Immat Gran (auto) (0.00-0.03) X10*3/uL Absolute Neuts (auto) (2.0-8.3) x10*3/uL Absolute Nucleated RBC (0.0-0.012) X10*3/uL Nucleated RBC % (auto) (0.0-0.2) /100WBC PT (10.0-13.1) SEC INR (0.9-1.1) D-Dimer High Sensitivty NG/ML Sodium (135-145) mmol/L Potassium (3.3-5.1) mmol/L Chloride (96-108) mmol/L Carbon Dioxide (22-29) mmol/L Anion Gap (12-20) BUN (9-16) mg/dL Creatinine (0.5-1.4) mg/dL Estim Creat Clear Calc Estimated GFR Random Glucose (60-115) mg/dL Lactic Acid (0.5-2.0) mmol/L Calcium (8.4-10.2) mg/dL Total Bilirubin (0.0-1.0) mg/dL AST (5-37) U/L ALT (0-40) U/L Alkaline Phosphatase (39-117) U/L Troponin I High Sens 9.0 D (<3.5-35.0) ng/L B-Natriuretic Peptide 442 H (<100) pg/mL Total Protein (6.5-8.0) g/dL Albumin (3.5-5.0) g/dL COVID-19 (XANDER) Negative (Negative) COVID-19 Clin Com See Note 07/31/22 Range/Units 21:16 WBC (4.8-10.8) X10*3/uL RBC (4.60-5.80) X10*6/uL Hgb (14.0-18.0) g/dl Hct (42.0-52.0) % MCV (80.0-98.0) fL MCH (27.0-33.0) pg MCHC (31.0-36.0) g/dl RDW (11.0-16.0) % Plt Count (160-400) X10*3/uL MPV (9.4-12.4) fL Immature Gran % (Auto) (0.0-0.4) % Neut % (Auto) (45-73) % Lymph % (Auto) (20-40) % [place] % (Auto) (2-11) % Eos % (Auto) (0-4) % Baso % (Auto) (0-2) % Lymph # (Auto) (1.2-4.9) X10*3/uL [place] # (Auto) (0.1-1.2) X10*3/uL Eos # (Auto) (0.0-0.4) X10*3/uL Baso # (Auto) (0.0-0.2) X10*3/uL Abs Immat Gran (auto) (0.00-0.03) X10*3/uL Absolute Neuts (auto) (2.0-8.3) x10*3/uL Absolute Nucleated RBC (0.0-0.012) X10*3/uL Nucleated RBC % (auto) (0.0-0.2) /100WBC PT (10.0-13.1) SEC INR (0.9-1.1) D-Dimer High Sensitivty NG/ML Sodium (135-145) mmol/L Potassium (3.3-5.1) mmol/L Chloride (96-108) mmol/L Carbon Dioxide (22-29) mmol/L Anion Gap (12-20) BUN (9-16) mg/dL Creatinine (0.5-1.4) mg/dL Estim Creat Clear Calc Estimated GFR Random Glucose (60-115) mg/dL Lactic Acid 1.0 (0.5-2.0) mmol/L Calcium (8.4-10.2) mg/dL Total Bilirubin (0.0-1.0) mg/dL AST (5-37) U/L ALT (0-40) U/L Alkaline Phosphatase (39-117) U/L Troponin I High Sens (<3.5-35.0) ng/L B-Natriuretic Peptide (<100) pg/mL Total Protein (6.5-8.0) g/dL Albumin (3.5-5.0) g/dL COVID-19 (XANDER) (Negative) COVID-19 Clin Com Critical Care Time Critical Care Time Critical Care Time: Yes Total Critical Care Time: 65 Attestation: I spent 65 minutes of critical care, with interventions, assessments, speaking to patient, consultants, and family. Discharge Plan Discharge Clinical Impression: Acute respiratory failure with hypoxia, Pneumonia, Congestive heart failure Patient Disposition: Admitted As Inpatient
[2022-07-31 20:54] VITALS: BP 128/87; BP 162/84; PULSE 83; PULSE 96; RESP 20; TEMP 37.2; O2SAT 89; O2SAT 93; BMI 25.2
--- NOTE | 2022-07-31 20:57 | ECG_ITS ---
Test Reason : SOB Blood Pressure : / mmHG Vent. Rate : 084 BPM Atrial Rate : 084 BPM P-R Int : 126 ms QRS Dur : 078 ms QT Int : 360 ms P-R-T Axes : 046 051 042 degrees QTc Int : 425 ms Normal sinus rhythm Nonspecific T wave abnormality Abnormal ECG When compared with ECG of 02-JAN-2022 21:21, Nonspecific T wave abnormality has replaced inverted T waves in Inferior leads Referred By: Henrique Gonzalez Electronically Signed By:BETO TURNER
[2022-07-31 21:01] VITALS: PULSE 96; RESP 30; O2SAT 94
[2022-07-31 21:08] LABS: MANUAL DIFF FLAG NO
[2022-07-31] MEDS: Furosemide 40 MG/4 ML VIAL IVPUSH (21:10)
[2022-07-31 21:13] LABS: Basophils Absolute Auto 0.1 X10*3/uL (0.0-0.2); Basophils Percent Auto 0.3 % (0-2); Eosinophils Absolute Auto 0.3 X10*3/uL (0.0-0.4); Eosinophils Percent Auto 1.4 % (0-4); Hematocrit 30.2 % (42.0-52.0); Hemoglobin 9.8 g/dl (14.0-18.0); Imm Gran Pct Auto 1.1 % (0.0-0.4); Lymphocytes Absolute Auto 2.2 X10*3/uL (1.2-4.9); Lymphocytes Percent Auto 12.4 % (20-40); Mean Corpuscular HGB Conc 32.5 g/dl (31.0-36.0); Mean Corpuscular Hemoglobin 27.5 pg (27.0-33.0); Mean Corpuscular Volume 84.8 fL (80.0-98.0); Mean Platelet Volume 9.6 fL (9.4-12.4); Monocytes Absolute Auto 1.2 X10*3/uL (0.1-1.2); Monocytes Percent Auto 6.8 % (2-11); Neutrophils Absolute Auto 13.9 x10*3/uL (2.0-8.3); Platelet Count 421 X10*3/uL (160-400); Red Blood Count 3.56 X10*6/uL (4.60-5.80); Red Cell Distribution Width 16.8 % (11.0-16.0); White Blood Count 17.8 X10*3/uL (4.8-10.8)
[2022-07-31 21:26] LABS: Alanine Aminotransferase 29 U/L (0-40); Albumin Level 3.6 g/dL (3.5-5.0); Alkaline Phosphatase 133 U/L (39-117); Anion Gap 15 (12-20); Aspartate Amino Transferase 16 U/L (5-37); Bilirubin Total < 0.2 mg/dL (0.0-1.0); Blood Urea Nitrogen 19 mg/dL (9-16); Calcium 8.6 mg/dL (8.4-10.2); Carbon Dioxide 21 mmol/L (22-29); Chloride 110 mmol/L (96-108); Creatinine Clr Calc Pharmacy 60.4; Estimated Glomerular Filt Rate 59; Glucose Random 188 mg/dL (60-115); Potassium 4.4 mmol/L (3.3-5.1); Sodium 142 mmol/L (135-145); Total Protein 6.4 g/dL (6.5-8.0)
[2022-07-31 21:29] LABS: B Type Natriuretic Peptide 442 pg/mL (<100)
[2022-07-31 21:34] LABS: COVID-19 Test Negative (Negative)
[2022-07-31 21:38] LABS: INTERNATIONAL NORM RATIO 0.9 (0.9-1.1); Prothrombin Time 10.7 SEC (10.0-13.1)
[2022-07-31] MEDS: cefTRIAXone sodium 1 GM in 0.9 % Sodium Chloride 50 ML IV (22:33)
[2022-07-31 22:38] VITALS: BP 164/86; PULSE 88; RESP 28; TEMP 37; O2SAT 93
[2022-07-31 22:42] VITALS: O2SAT 93
[2022-07-31 23:38] VITALS: RESP 19
[2022-07-31] MEDS: Morphine Sulfate 4 MG/ML CARTRIDGE IVPUSH (23:38)
[2022-07-31] MEDS: ondansetron HCL 4 MG/2 ML VIAL IVPUSH (23:39)
[2022-07-31] MEDS: Doxycycline Hyclate 100 MG in 0.9 % Sodium Chloride 250 ML 166.67 MG IV (23:39)
[2022-07-31] MEDS: Albuterol Sulfate 2.5 MG, Albuterol/Iprat 2.5/0.5MG 3 ML 3 ML INHALE (23:49)
[2022-07-31 23:50] VITALS: PULSE 86; RESP 17; O2SAT 97
[2022-08-01] VITALS (14 sets, daily range): BP systolic 137–155; BP diastolic 74–82; PULSE 77–88; RESP 12–24; TEMP 36.6–37; O2SAT 85–98
[2022-08-01] LABS: D Dimer High Sensitivity 269 NG/ML
[2022-08-01] MEDS: Enoxaparin Sodium 40 MG/0.4 ML SYRINGE SUBCUT ×2 (00:46→21:26)
[2022-08-01 01:01] LABS: ABG Refer to POC result
[2022-08-01 01:01] LABS: ABG Base Excess -1.4 mmol/L; ABG HCO3 22 mmol/L (22-26); ABG pCO2 32 mmHg (32-45); ABG pH 7.43 (7.35-7.45); ABG pO2 55 mmHg (83-108)
--- NOTE | 2022-08-01 01:23 | PC.NURSE ---
O2 flow rate increased to 13 LPM NC, patient desat to 82-88% when using the urinal and it's taking him a while to recover. Vitals: T 98.0, RR 24, BP 157/78. Dr. Freeman notified.
--- NOTE | 2022-08-01 01:53 | P.HPHOSP_ITS ---
History of Present Illness Date of Service: 07/31/22 Chief Complaint: SOB 47-year-old male with a past medical history of hypertension, hyperlipidemia, diabetes, COPD, anxiety, depression presented to the hospital today with a chief complaint of shortness of breath. Patient mentioned that he was recently admitted to the [facility], discharged on last Monday, presented with shortness of breath and was given IV diuresis briefly at the per the patient. Patient mentioned that he was recommended outpatient sleep studies which has has done; today he felt shortness of breath which worsens on lying flat and on exertion. Patient mentions that later in the evening he went to his mom's house, did not feel well, generally weak, laid down on the bed and felt shortness of breath; subsequently came to the ER for further evaluation. Mentions that he has been having mild dry cough. Reports posttussive chest discomfort. Denies any GI symptoms. Review of all other systems is negative except mentioned above Patient mentions that he has COVID-19 vaccinated ER course: Per ER team patient on presentation noted to be saturating 84%, appears to be in mild respiratory distress, placed on BiPAP briefly, chest x-ray showed pulmonary congestion/multifocal pneumonia-given IV Lasix and antibiotics. After the Lasix patient respiratory status slightly improved. Admitted to the hospital for further management. EKG was nonischemic. [facility] Medical History Anxiety Asthma Diabetes HLD (hyperlipidemia) HTN (hypertension) Hypercholesteremia PAD (peripheral artery disease) Pertinent family history: Reviewed Surgical History S/P angiogram of extremity Social History Alcohol intake: current Alcohol intake frequency: holidays/special occasions only Patient Tobacco Use Status: Current everyday Tobacco user Tobacco use type: Cigarette Cigarettes Per Day: 10 Years Smoked: 29 Smoked in Last 30 Days: Yes Second Hand Smoke Exposure: Yes Use of substances other than those prescribed or required for medical reasons: Yes Substance Use Type: Marijuana Substance Use Frequency: Occasionally Advance Directives: No service: No Current occupational status: unemployed Meds Allergies Allergy/AdvReac Type Severity Reaction Status Date / Time dulaglutide [From Trulicity] Allergy Unknown Verified 01/02/22 21:08 metformin [METFORMIN] AdvReac Mild DIARRHEA, Verified 09/22/20 13:18 nausea and vomiting Active Medications: Current Medications Acetaminophen (Acetaminophen 325 Mg Tablet) 650 mg PO Q6H PRN PRN Reason: Pain, Mild (Pain Scale 1-3) Albuterol/Ipratropium (Albuterol/Iprat 2.5/0.5mg 3 Ml Ampul.Neb) 3 ml INHALE RQ4H PRN PRN Reason: Shortness of Breath/Wheezing Dextrose (Dextrose 50 % 25 Gm/50 Ml Syringe) 25 gm IVPUSH Q15M PRN; Protocol PRN Reason: per Hypoglycemia Standing Ord. Enoxaparin Sodium (Enoxaparin Sodium 40 Mg/0.4 Ml Syringe) 40 mg SUBCUT BEDTIME REPLACED BY [facility] Last Admin: 08/01/22 00:46 Dose: 40 mg Glucose (Glucose Gel 15 Gm Gel..Gram.) 15 gm PO Q15M PRN; Protocol PRN Reason: per Hypoglycemia Standing Ord. Vancomycin HCl 1,000 mg/ (Sodium Chloride) 270 mls @ 270 mls/hr IV Q12H REPLACED BY [facility] Piperacillin Sod/Tazobactam (Sod 3.375 gm/ Sodium Chloride) 50 mls @ 100 mls/hr IV Q6H REPLACED BY [facility] Insulin Human Lispro (Insulin Lispro 100 Unit/Ml 3 Ml Vial) 0 unit SUBCUT QIDACHS REPLACED BY [facility]; Protocol Melatonin (Melatonin 3 Mg Tablet) 6 mg PO BEDTIME PRN PRN Reason: Insomnia Pharmacy Consult (Consult Rx Vancomycin Dosing) 1 each MISCELLANE DAILY PRN PRN Reason: Consult order Senna (Sennosides 8.6 Mg Tablet) 17.2 mg PO BEDTIME PRN PRN Reason: Constipation Sodium Chloride (0.9 % Sodium Chloride Flush 3 Ml Syringe) 3 ml IVFLUSH QSHIFT REPLACED BY [facility] Last Admin: 08/01/22 00:43 Dose: Not Given Home Medications Medication Instructions Recorded Confirmed Last Taken Type albuterol sulfate 90 mcg/actuation 2 puff inhalation Q6H 08/01/22 08/01/22 Unknown History aerosol inhaler amlodipine 5 mg tablet 1 tab PO DAILY 08/01/22 08/01/22 Unknown History aspirin 81 mg tablet,delayed 1 tab PO DAILY 08/01/22 08/01/22 Unknown History release atorvastatin 40 mg tablet 1 tab PO DAILY 08/01/22 08/01/22 Unknown History escitalopram oxalate 10 mg tablet 1 tab PO DAILY 08/01/22 08/01/22 Unknown History gabapentin 300 mg capsule 1 cap PO TID 08/01/22 08/01/22 Unknown History insulin lispro 100 unit/mL unit subcut 08/01/22 Unknown History subcutaneous solution lisinopril 40 mg tablet 1 tab PO DAILY 08/01/22 08/01/22 Unknown History metoclopramide HCl 10 mg tablet 1 tab PO QID 08/01/22 08/01/22 Unknown History metoprolol succinate 100 mg 1 tab PO DAILY 08/01/22 08/01/22 Unknown History tablet,extended release 24 hr omeprazole 40 mg capsule,delayed 1 cap PO DAILY 08/01/22 08/01/22 Unknown History release tiotropium bromide 1.25 2 puff inhalation DAILY 08/01/22 08/01/22 Unknown History mcg/actuation mist for inhalation (Spiriva Respimat) trazodone 50 mg tablet 1 - 2 tab PO BEDTIME 08/01/22 08/01/22 Unknown History Physical Exam Vital Signs and Narrative: Vital Signs: Last Vital Signs Temp 98.6 F 07/31/22 22:38 Pulse 87 08/01/22 00:02 Resp 20 08/01/22 00:02 BP 155/78 H 08/01/22 00:02 Pulse Ox 96 08/01/22 00:02 O2 Del Method 08/01/22 00:02 O2 Flow Rate 15 08/01/22 00:02 Oxygen Flow Rate 15 07/31/22 22:42 BMI result Body Mass Index 25.2 Results Labs CBC and Chem 7: 07/31/22 21:03 07/31/22 21:03 Labs: Laboratory Results - last 24 hr 07/31/22 07/31/22 07/31/22 21:03 21:03 21:03 MCV 84.8 MCH 27.5 MCHC 32.5 RDW 16.8 H Plt Count 421 H D MPV 9.6 Immature Gran % (Auto) 1.1 H Neut % (Auto) 78.0 H Lymph % (Auto) 12.4 L [place] % (Auto) 6.8 Eos % (Auto) 1.4 Baso % (Auto) 0.3 Lymph # (Auto) 2.2 [place] # (Auto) 1.2 Eos # (Auto) 0.3 Baso # (Auto) 0.1 Abs Immat Gran (auto) 0.20 H Absolute Neuts (auto) 13.9 H Absolute Nucleated RBC 0.000 Nucleated RBC % (auto) 0.0 PT 10.7 INR 0.9 D-Dimer High Sensitivty 269 O2 Saturation ABG pH at Pt Temp ABG pCO2 at Pt Temp ABG pO2 at Pt Temp ABG HCO3 ABG Base Excess (Actual) Anion Gap 15 Estim Creat Clear Calc 60.4 Estimated GFR 59 Random Glucose 188 H Lactic Acid Calcium 8.6 D Total Bilirubin < 0.2 AST 16 ALT 29 Alkaline Phosphatase 133 H Troponin I High Sens B-Natriuretic Peptide Total Protein 6.4 L Albumin 3.6 COVID-19 (XANDER) COVID-[employer] 07/31/22 07/31/22 07/31/22 21:03 21:03 21:03 MCV MCH MCHC RDW Plt Count MPV Immature Gran % (Auto) Neut % (Auto) Lymph % (Auto) [place] % (Auto) Eos % (Auto) Baso % (Auto) Lymph # (Auto) [place] # (Auto) Eos # (Auto) Baso # (Auto) Abs Immat Gran (auto) Absolute Neuts (auto) Absolute Nucleated RBC Nucleated RBC % (auto) PT INR D-Dimer High Sensitivty O2 Saturation ABG pH at Pt Temp ABG pCO2 at Pt Temp ABG pO2 at Pt Temp ABG HCO3 ABG Base Excess (Actual) Anion Gap Estim Creat Clear Calc Estimated GFR Random Glucose Lactic Acid Calcium Total Bilirubin AST ALT Alkaline Phosphatase Troponin I High Sens 9.0 D B-Natriuretic Peptide 442 H Total Protein Albumin COVID-19 (XANDER) Negative [employer] Analysis See Note 07/31/22 08/01/22 21:16 00:34 MCV MCH MCHC RDW Plt Count MPV Immature Gran % (Auto) Neut % (Auto) Lymph % (Auto) [place] % (Auto) Eos % (Auto) Baso % (Auto) Lymph # (Auto) [place] # (Auto) Eos # (Auto) Baso # (Auto) Abs Immat Gran (auto) Absolute Neuts (auto) Absolute Nucleated RBC Nucleated RBC % (auto) PT INR D-Dimer High Sensitivty O2 Saturation 83.0 ABG pH at Pt Temp 7.43 ABG pCO2 at Pt Temp 32 ABG pO2 at Pt Temp 55 L ABG HCO3 22 ABG Base Excess (Actual) -1.4 Anion Gap Estim Creat Clear Calc Estimated GFR Random Glucose Lactic Acid 1.0 Calcium Total Bilirubin AST ALT Alkaline Phosphatase Troponin I High Sens B-Natriuretic Peptide Total Protein Albumin COVID-19 (XANDER) COVID-19 Clin Com Imaging Radiologist's Impressions: Impressions Chest X-Ray 07/31/22 21:25 IMPRESSION: *Multifocal airspace disease of the lungs with findings most pronounced in the right upper pulmonary lobe and left middle lung zone. Findings are suspicious for infection. *Diffuse vascular indistinctness and diffuse pulmonary reticular opacities with developing bibasilar Lamont B line. Findings are suspicious for moderate interstitial pulmonary edema. *Small bilateral pleural effusions. Assessment and Plan (1) Acute respiratory failure with hypoxia: Status: Acute Plan 47-year-old male with a past medical history of hypertension, hyperlipidemia, diabetes, COPD, anxiety, depression presented to the hospital today with a chief complaint of shortness of breath. Acute hypoxic respiratory failure: Likely in the setting of multifocal pneumonia/COPD. Chest x-ray also concerning for pulmonary congestion Status post IV Lasix in the ER with improvement in respiratory status. Patient was initially requiring BiPAP-status post Lasix with about 1500 cc of urine output-> transition to hearts on cannula at 15 L followed by nasal cannula at 6 L. Goal oxygen saturation 93% DuoNebs p.r.n. Reported patient had recent admission to the [facility] with similar presentation was briefly on IV diuresis. Will repeat echocardiogram ABG showed pH of 7.43, pCO2 32, PO2 55 D-dimer is 269-patient reportedly had CTA chest done on July 20 at [facility] with negative for Pulm embolism. Chest pain/shortness of breath: Chest x-ray showed Pulmonary congestion: Likely in setting of CHF. Will repeat echocardiogram Cardiology consult EKG nonischemic Troponin negative Multifocal pneumonia: COVID-19 negative. Empirically covered with IV vancomycin and Zosyn. Id consult YARELIS: Patient on 3 L of home oxygen at night History of hypertension/hyperlipidemia: Continue home medications History of diabetes: Insulin sliding scale DVT prophylaxis: Lovenox Code status: Full code Quality Stroke Does the patient have a stroke diagnosis?: No VTE Prior VTE?: No VTE Risk Level:: Medical - moderate - high VTE Device Contraindication: Treatment Not Indicated VTE Drug Contraindication: N/A - Med Ordered
[2022-08-01] MEDS: Piperacillin Sodium/Tazobactam 3.375 GM in 0.9 % Sodium Chloride 50 ML IV ×4 (02:31→21:25)
[2022-08-01] MEDS: vancomycin HCL 1,000 MG, vancomycin HCL 750 MG in 0.9 % Sodium Chloride 500 ML 267.5 MG IV (03:18)
[2022-08-01] MEDS: Morphine Sulfate 2 MG/ML CARTRIDGE 1 MG IVPUSH ×3 (03:45→17:59)
[2022-08-01] MEDS: Albuterol Sulfate 90 MCG 8 GM INHALER 2 PUFF INHALE ×3 (04:47→21:26)
[2022-08-01] MEDS: ondansetron HCL 4 MG/2 ML VIAL IVPUSH (05:08)
[2022-08-01 06:41] LABS: MANUAL DIFF FLAG NO
[2022-08-01] MEDS: Acetaminophen 325 MG TABLET 650 MG PO (06:43)
[2022-08-01 06:46] LABS: Basophils Percent Auto 0.2 % (0-2); Eosinophils Absolute Auto 0.2 X10*3/uL (0.0-0.4); Hematocrit 28.7 % (42.0-52.0); Hemoglobin 9.3 g/dl (14.0-18.0); Imm Gran Pct Auto 0.6 % (0.0-0.4); Lymphocytes Percent Auto 12.3 % (20-40); Mean Corpuscular HGB Conc 32.4 g/dl (31.0-36.0); Mean Corpuscular Hemoglobin 27.9 pg (27.0-33.0); Mean Corpuscular Volume 86.2 fL (80.0-98.0); Mean Platelet Volume 9.8 fL (9.4-12.4); Monocytes Absolute Auto 0.9 X10*3/uL (0.1-1.2); Monocytes Percent Auto 5.7 % (2-11); Neutrophils Percent Auto 80.2 % (45-73); Platelet Count 390 X10*3/uL (160-400); Red Blood Count 3.33 X10*6/uL (4.60-5.80); Red Cell Distribution Width 16.9 % (11.0-16.0); White Blood Count 16.2 X10*3/uL (4.8-10.8)
--- NOTE | 2022-08-01 06:48 | PC.NURSE ---
Jeremy Freeman patient could received Morphine 1 hour earlier scheduled dose.
--- NOTE | 2022-08-01 06:56 | PC.NURSE ---
Patient O2 Sat 88-90 on 13 LPM NC after morning blood draw. Dr. Freeman notified. O2 increased carmina 15 LPM NC per MD order. Morphine IV push administered 1 hour earlier scheduled dose. RT notified and to administer Duoneb treatment STAT per MD order. Pt is afebrile, RR 12, O2 Sat 92% on 15 LM NC, P 81, BP 157/78.
--- NOTE | 2022-08-01 07:00 | CA_ITS ---
Transthoracic Echocardiogram Patient (Last, First, Middle): Ciara Quiroga, Gender: Male Date of : 1975 Age: 47 Procedure Date: 08/01/2022 Procedure Type: Transthoracic Echocardiogram Location: ER Height: 162.56 cm Weight: 68.49 kg BSA: 1.74 m2 Heart Rate: bpm BP: 148 / 82 mmHg Drug Safety Coordinator: Referring MD: Mandeep Freeman MD Burlapper: Lion Mcgee MD Symptoms: sob Study Quality: Adequate ECG Rhythm: Sinus Conclusions: - 1. Normal LV systolic function with restrictive filling pattern 2. Normal cardiac valvular Doppler 3. Normal RV systolic pressure 4. Trivial pericardial effusion Findings Left Ventricle Normal left ventricular size, thickness, and systolic function. The visually estimated ejection fraction is between 60-65%. Spectral Doppler is indicative of a restrictive filling pattern. E/E prime ratio is between 8 and 15 consistent with indeterminate filling pressures. Right Ventricle Normal right ventricular cavity size and systolic function. Atria The left atrium is likely dilated. There is no evidence of interatrial shunt. The right atrium is normal in size. Aortic Valve Normal aortic valve structure and function. There is no aortic valve stenosis. There is no aortic valve regurgitation. Mitral Valve Normal mitral valve structure and function. There is trace mitral valve regurgitation. There is no mitral valve stenosis. Pulmonic Valve The pulmonic valve was not well visualized. Tricuspid Valve There is trace tricuspid valve regurgitation. The right ventricular systolic pressure is 24 mmHg. Normal right atrial pressure. There is no evidence of pulmonary hypertension. Great Vessels All visible segments of the aorta are normal in size. The pulmonary artery was not well visualized. Venous The inferior vena cava is normal in size and collapses greater than 50% with inspiration. Pericardium/Pleural There is a trivial pericardial effusion. There is a bilateral pleural effusion. Prior Study Comparison No significant change compared to prior study dated: 02/06/2019. Measurements 2D Linear Measurements IVSd: 1.08 0.6-0.9/0.6-1.0 cm LVIDd: 4.55 3.9-5.3/4.2-5.9 cm LVIDd Index: 2.61 2.4-3.2/2.2-3.1 cm/m2 LVIDs: 2.93 2.0-3.6 cm LVPWd: 1.05 0.7-1.1 cm LA Diam: 3.90 2.7-3.8/3.0-4.0 cm LAIDs Index: 2.24 1.5-2.3 cm/m2 LV Mass: 212.04 67-162/88-224 g LV Mass Index: 121.86 43-95/49-115 g/m2 LVOT Diam: 2.00 3.0+(-)1.3 cm 2D Systolic Function EF 4C: 63.90 >55% EF 2C: 56.40 >55% EF BiP: 60.20 >55% Mitral Valve MV Pk E: 1.45 MV PK A: 0.51 MV Decel Time: 163.00 E/A: 2.80 E'Lateral: 10.80 E'Medial: 10.00 E/E' Med: 14.50 E/E' Lat: 13.40 PHT: 48.00 MVA PHT: 4.58 Decel [place]: 8.92 Aortic Valve AoV Pk Ajay: 1.28 AoV Mn Ajay: 0.79 AoV VTI: 0.29 AoV Pk Grad: 7.00 Aov Mn Grad: 3.00 LUCIANA Cont.VTI: 2.31 LVOT LVOT Pk Ajay: 0.93 LVOT Mn Ajay: 0.60 LVOT VTI: 0.21 LVOT Pk Grad: 3.00 LVOT Mn Grad: 2.00 LVOT Diam: 2.00 LVOT Area: 3.14 Diastolic Function MV Pk E: 1.45 MV Pk A: 0.51 E/A: 2.80 E'Medial: 10.00 E/E' Med: 14.50 E' Laterial: 10.80 E/E' Lat: 13.40 Right Ventricle TAPSE (mm): 24.00 TVS' Ajay: 12.90 Tricuspid Valve TR Pk Ajay: 2.31 TR Pk Grad: 21.00 RA Press: 3.00 RVSP: 24.00 Great Vessels Aorta Sinus of Valsalva: 2.80 2.0-3.5 cm Ao Asc: 2.90 2.1-3.4 cm Pulmonary Valve PV Pk Ajay: 0.81 Peak PV Grad: 3.00 Updated in Other Vendor System with Status of Final Lion Mcgee MD electronically signed on 08/01/2022 5:35:16 PM with status of Final
[2022-08-01 07:19] LABS: Anion Gap 15 (12-20); Blood Urea Nitrogen 17 mg/dL (9-16); Calcium 8.2 mg/dL (8.4-10.2); Carbon Dioxide 21 mmol/L (22-29); Chloride 111 mmol/L (96-108); Estimated Glomerular Filt Rate > 60; Glucose Random 213 mg/dL (60-115); Potassium 4.6 mmol/L (3.3-5.1); Sodium 142 mmol/L (135-145)
--- NOTE | 2022-08-01 07:32 | PHA.PROG ---
Admission Date/Time: July 31, 2022 23:49 Indication: PNA Weight in k.9 kg Adjusted body weight in K.5 KG Vanzant body weight in K.5 KG Obesity Dosing Indication % IBW: Serum Creatinine - Last 168 Hours 07/31/22 08/01/22 21:03 06:31 Creatinine 1.30 1.09 Estimated CrCl and GFR - Last 168 Hours 07/31/22 08/01/22 21:03 06:31 Estim Creat Clear Calc 60.4 72.0 Estimated GFR 59 > 60 Vancomycin Loading Dose: 1750 MG Current Vancomycin Dosing Regimen: 750 MG Q12H Vancomycin Monitoring using AUC goal of 400 - 600 range with trough as surrogate marker: PREDICTED AUC 453 Date and Time for next Vancomycin Level to be drawn: 08/02/22 @1300 Pharmacist Comments on Vancomycin Plan: Vancomycin dosing will take advantage of [employer] as a clinical decision support tool that uses Bayesian modeling to calculate individual patient's pharmacokinetic parameters and forecast the patient's drug concentration time course with the target goal AUC 24 range of 400 - 600 mg/L/hr.
--- NOTE | 2022-08-01 08:25 | PHA.MEDREC ---
Pharmacy Consult ? Medication Reconciliation Pharmacy has completed the medication reconciliation. Reviewed med rec done by nursing
[2022-08-01] MEDS: Furosemide 40 MG/4 ML VIAL IVPUSH ×2 (08:54→18:01)
[2022-08-01] MEDS: Omeprazole 40 MG CAPSULE.DR PO (08:54)
[2022-08-01] MEDS: Metoprolol Succinate ER 100 MG TAB.ER.24H PO (08:55)
[2022-08-01] MEDS: Metoclopramide HCl 10 MG TABLET PO ×3 (08:55→21:26)
[2022-08-01] MEDS: lisinopriL 40 MG TABLET PO (08:55)
[2022-08-01] MEDS: Gabapentin 300 MG CAPSULE PO ×3 (08:55→21:26)
[2022-08-01] MEDS: Aspirin Enteric Coated 81 MG TABLET.DR PO (08:55)
[2022-08-01] MEDS: Escitalopram Oxalate 10 MG TABLET PO (08:55)
[2022-08-01] MEDS: Atorvastatin Calcium 40 MG TABLET PO (08:55)
[2022-08-01] MEDS: 0.9 % Sodium Chloride Flush 3 ML SYRINGE IVFLUSH (09:02)
--- NOTE | 2022-08-01 09:14 | PM.CNCAR ---
History of Present Illness History of Present Illness Date of Service: 08/01/22 Requesting physician: Garret Cifuentes Consult reason: congestive heart failure Chief complaint: Hypoxia Narrative: I was consulted to see Ciara in cardiology consultation today for possible congestive heart failure in patient who presents with acute hypoxic respiratory failure. He is a 47-year-old male with advanced COPD using home oxygen at nighttime at home being followed by Pulmonary in [place] related to smoking no clear history of congestive heart failure however the last admission in [facility] about a week ago he was told he had fluid in his lungs. This is not clear at this point time. He does not recall ever being told that he had congestive heart failure at [facility] and does not remember being told that he had week muscle of the heart or prior myocardial infarction. He does have history of hypertension, diabetes, hyperlipidemia. No prior history of myocardial infarction. He was discharged from [facility] about a week ago and started noticing leg swelling and then progressive shortness of breath including shortness of breath nighttime. He does have chills at home but no fever. He also complains of pain in the right lower ribcage area which is worse with deep breathing and coughing. He has been productive of increased phlegm with whitish phlegm. No discoloration. He came in was noted to have multifocal pneumonia as well as elevated BNP in 442 range along with leg edema and possible pulmonary vascular congestion. EKG did not show any acute ischemia. Troponins are acceptable limits. Cardiology on consult was called because of hypoxic respiratory failure and CHF. Patient continues to complain of pain and appears very anxious. Review of Systems Constitutional: Constitutional: Reports chills Eyes: Eyes: Reports no additional eye complaints Cardiovascular: Cardiovascular: Denies rapid heart rate, Reports leg edema, Denies palpitations, Reports dyspnea, Reports dyspnea on exertion and Reports orthopnea Respiratory: Respiratory: Reports cough, Reports excessive phlegm production, Reports pain on inspiration, Reports pain with cough, Reports dyspnea and Reports dyspnea on exertion Gastrointestinal: Gastrointestinal: Reports no additional gastrointestinal complaints Musculoskeletal: Musculoskeletal: Reports no additional musculoskeletal complaints Integumentary/Breasts: Skin/Breast: Reports system reviewed and no additional complaints, except as docu Neurologic: Reports system reviewed and no additional complaints, except as documented Psychiatric: Psychiatric: Reports no additional psychiatric complaints Endocrine: Endocrine: Reports no additional endocrine complaints and Denies palpitations PMFSH Past Medical History Medical History Anxiety Asthma Diabetes HLD (hyperlipidemia) HTN (hypertension) Hypercholesteremia PAD (peripheral artery disease) Surgical History Surgical History S/P angiogram of extremity Social History Social History Alcohol intake: current Alcohol intake frequency: holidays/special occasions only Patient Tobacco Use Status: Current everyday Tobacco user Tobacco use type: Cigarette Cigarettes Per Day: 10 Years Smoked: 29 Smoked in Last 30 Days: Yes Second Hand Smoke Exposure: Yes Use of substances other than those prescribed or required for medical reasons: Yes Substance Use Type: Marijuana Substance Use Frequency: Occasionally Advance Directives: No service: No Current occupational status: unemployed Meds Allergies Allergy/AdvReac Type Severity Reaction Status Date / Time dulaglutide [From Trulicity] Allergy Unknown Verified 01/02/22 21:08 metformin [METFORMIN] AdvReac Mild DIARRHEA, Verified 09/22/20 13:18 nausea and vomiting Active Medications: Current Medications Acetaminophen (Acetaminophen 325 Mg Tablet) 650 mg PO Q6H PRN PRN Reason: Pain, Mild (Pain Scale 1-3) Last Admin: 08/01/22 06:43 Dose: 650 mg Albuterol Sulfate (Albuterol Sulfate 90 Mcg 8 Gm Inhaler) 2 puff INHALE Q6H [facility] Last Admin: 08/01/22 07:17 Dose: 2 puff Albuterol/Ipratropium (Albuterol/Iprat 2.5/0.5mg 3 Ml Ampul.Neb) 3 ml INHALE RQ4H PRN PRN Reason: Shortness of Breath/Wheezing Aspirin (Aspirin Enteric Coated 81 Mg Tablet.) 81 mg PO DAILY [facility] Last Admin: 08/01/22 08:55 Dose: 81 mg Atorvastatin Calcium (Atorvastatin Calcium 40 Mg Tablet) 40 mg PO DAILY [facility] Last Admin: 08/01/22 08:55 Dose: 40 mg Dextrose (Dextrose 50 % 25 Gm/50 Ml Syringe) 25 gm IVPUSH Q15M PRN; Protocol PRN Reason: per Hypoglycemia Standing Ord. Enoxaparin Sodium (Enoxaparin Sodium 40 Mg/0.4 Ml Syringe) 40 mg SUBCUT BEDTIME [facility] Last Admin: 08/01/22 00:46 Dose: 40 mg Escitalopram Oxalate (Escitalopram Oxalate 10 Mg Tablet) 10 mg PO DAILY [facility] Last Admin: 08/01/22 08:55 Dose: 10 mg Furosemide (Furosemide 40 Mg/4 Ml Vial) 40 mg IVPUSH BID@0900,1800 [facility]; Protocol Last Admin: 08/01/22 08:54 Dose: 40 mg Gabapentin (Gabapentin 300 Mg Capsule) 300 mg PO TID [facility] Last Admin: 08/01/22 08:55 Dose: 300 mg Glucose (Glucose Gel 15 Gm Gel..Gram.) 15 gm PO Q15M PRN; Protocol PRN Reason: per Hypoglycemia Standing Ord. Piperacillin Sod/Tazobactam (Sod 3.375 gm/ Sodium Chloride) 50 mls @ 100 mls/hr IV Q6H [facility] Last Admin: 08/01/22 08:55 Dose: 100 mls/hr Vancomycin HCl 750 mg/ Sodium (Chloride) 265 mls @ 265 mls/hr IV Q12H [facility] Insulin Human Lispro (Insulin Lispro 100 Unit/Ml 3 Ml Vial) 0 unit SUBCUT QIDACHS [facility]; Protocol Last Admin: 08/01/22 08:54 Dose: Not Given Lisinopril (Lisinopril 40 Mg Tablet) 40 mg PO DAILY [facility]; Protocol Last Admin: 08/01/22 08:55 Dose: 40 mg Melatonin (Melatonin 3 Mg Tablet) 6 mg PO BEDTIME PRN PRN Reason: Insomnia Metoclopramide HCl (Metoclopramide Hcl 10 Mg Tablet) 10 mg PO QID [facility] Last Admin: 08/01/22 08:55 Dose: 10 mg Metoprolol Succinate (Metoprolol Succinate Er 100 Mg Tab.Er.24h) 100 mg PO DAILY [facility]; Protocol Last Admin: 08/01/22 08:55 Dose: 100 mg Morphine Sulfate (Morphine Sulfate 2 Mg/Ml Cartridge) 1 mg IVPUSH Q4H PRN; Protocol PRN Reason: pain scale 4-10; sob Last Admin: 08/01/22 06:53 Dose: 1 mg Omeprazole (Omeprazole 40 Mg Capsule.Dr) 40 mg PO DAILY [facility] Last Admin: 08/01/22 08:54 Dose: 40 mg Pharmacy Consult (Consult Rx Vancomycin Dosing) 1 each MISCELLANE DAILY PRN PRN Reason: Consult order Senna (Sennosides 8.6 Mg Tablet) 17.2 mg PO BEDTIME PRN PRN Reason: Constipation Sodium Chloride (0.9 % Sodium Chloride Flush 3 Ml Syringe) 3 ml IVFLUSH QSHIFT [facility] Last Admin: 08/01/22 09:02 Dose: 3 ml Home Medications Medication Instructions Recorded Confirmed Last Taken Type albuterol sulfate 90 mcg/actuation 2 puff inhalation Q6H 08/01/22 08/01/22 Unknown History aerosol inhaler amlodipine 5 mg tablet 1 tab PO DAILY 08/01/22 08/01/22 Unknown History aspirin 81 mg tablet,delayed 1 tab PO DAILY 08/01/22 08/01/22 Unknown History release atorvastatin 40 mg tablet 1 tab PO DAILY 08/01/22 08/01/22 Unknown History escitalopram oxalate 10 mg tablet 1 tab PO DAILY 08/01/22 08/01/22 Unknown History gabapentin 300 mg capsule 1 cap PO TID 08/01/22 08/01/22 Unknown History insulin lispro 100 unit/mL See Rx Instructions .Route .COMPLEX 08/01/22 08/01/22 Unknown History subcutaneous solution lisinopril 40 mg tablet 1 tab PO DAILY 08/01/22 08/01/22 Unknown History metoclopramide HCl 10 mg tablet 1 tab PO QID 08/01/22 08/01/22 Unknown History metoprolol succinate 100 mg 1 tab PO DAILY 08/01/22 08/01/22 Unknown History tablet,extended release 24 hr omeprazole 40 mg capsule,delayed 1 cap PO DAILY 08/01/22 08/01/22 Unknown History release tiotropium bromide 1.25 2 puff inhalation DAILY 08/01/22 08/01/22 Unknown History mcg/actuation mist for inhalation (Spiriva Respimat) trazodone 50 mg tablet 1 - 2 tab PO BEDTIME 08/01/22 08/01/22 Unknown History Physical Exam Vital Signs: Vital Signs: Last Vital Signs Temp 98.5 F 08/01/22 07:17 Pulse 87 08/01/22 07:19 Resp 16 08/01/22 07:19 BP 148/82 H 08/01/22 07:17 Pulse Ox 94 08/01/22 07:17 O2 Del Method Nasal Cannula 08/01/22 07:17 O2 Flow Rate 93 08/01/22 07:17 Oxygen Flow Rate 15 07/31/22 22:42 BMI result Body Mass Index 25.2 Const: General: cooperative, alert, in distress mild and respiratory and anxious Nutritional Appearance: overweight Orientation/consciousness: patient oriented x3 Limitations: no limitations HEENT: Head: Yes normocephalic and Yes atraumatic Neck: Neck: Yes trachea midline and Yes supple Resp: Effort & Inspection: normal respiratory effort Auscultation: crackles (Coarse) on the right at the base, no rhonchi, no wheezes and diminished lung sounds Cardio: Palpation: normal PMI Rate: regular rate Rhythm: regular rhythm Heart sounds: S1 normal heart sound present, S2 normal heart sound present, no click, no gallops, no murmurs and no rubs GI: Inspection: Yes obesity Auscultation: normal bowel sounds Skin: General skin exam: no rashes or lesions noted Neuro: General: patient oriented x3 and no focal motor deficits Extrem: General: No clubbing, No cyanosis and Yes edema Psych: Appearance: grossly normal Objective Labs and Meds Result diagrams: 08/01/22 06:31 08/01/22 06:31 Lab results: Laboratory Results - last 24 hr 07/31/22 07/31/22 07/31/22 21:03 21:03 21:03 WBC 17.8 H RBC 3.56 L D Hgb 9.8 L Hct 30.2 L D MCV 84.8 MCH 27.5 MCHC 32.5 RDW 16.8 H Plt Count 421 H D MPV 9.6 Immature Gran % (Auto) 1.1 H Neut % (Auto) 78.0 H Lymph % (Auto) 12.4 L [place] % (Auto) 6.8 Eos % (Auto) 1.4 Baso % (Auto) 0.3 Lymph # (Auto) 2.2 [place] # (Auto) 1.2 Eos # (Auto) 0.3 Baso # (Auto) 0.1 Abs Immat Gran (auto) 0.20 H Absolute Neuts (auto) 13.9 H Absolute Nucleated RBC 0.000 Nucleated RBC % (auto) 0.0 PT 10.7 INR 0.9 D-Dimer High Sensitivty 269 O2 Saturation ABG pH at Pt Temp ABG pCO2 at Pt Temp ABG pO2 at Pt Temp ABG HCO3 ABG Base Excess (Actual) Sodium 142 Potassium 4.4 Chloride 110 H Carbon Dioxide 21 L Anion Gap 15 BUN 19 H Creatinine 1.30 Estim Creat Clear Calc 60.4 Estimated GFR 59 Random Glucose 188 H Lactic Acid Calcium 8.6 D Total Bilirubin < 0.2 AST 16 ALT 29 Alkaline Phosphatase 133 H Troponin I High Sens B-Natriuretic Peptide Total Protein 6.4 L Albumin 3.6 COVID-19 (XANDER) COVID-19 Clin Com 07/31/22 07/31/22 07/31/22 21:03 21:03 21:03 WBC RBC Hgb Hct MCV MCH MCHC RDW Plt Count MPV Immature Gran % (Auto) Neut % (Auto) Lymph % (Auto) [place] % (Auto) Eos % (Auto) Baso % (Auto) Lymph # (Auto) [place] # (Auto) Eos # (Auto) Baso # (Auto) Abs Immat Gran (auto) Absolute Neuts (auto) Absolute Nucleated RBC Nucleated RBC % (auto) PT INR D-Dimer High Sensitivty O2 Saturation ABG pH at Pt Temp ABG pCO2 at Pt Temp ABG pO2 at Pt Temp ABG HCO3 ABG Base Excess (Actual) Sodium Potassium Chloride Carbon Dioxide Anion Gap BUN Creatinine Estim Creat Clear Calc Estimated GFR Random Glucose Lactic Acid Calcium Total Bilirubin AST ALT Alkaline Phosphatase Troponin I High Sens 9.0 D B-Natriuretic Peptide 442 H Total Protein Albumin COVID-19 (XANDER) Negative COVID-19 Clin Com See Note 07/31/22 08/01/22 08/01/22 21:16 00:34 06:31 WBC 16.2 H RBC 3.33 L Hgb 9.3 L Hct 28.7 L MCV 86.2 MCH 27.9 MCHC 32.4 RDW 16.9 H Plt Count 390 MPV 9.8 Immature Gran % (Auto) 0.6 H Neut % (Auto) 80.2 H Lymph % (Auto) 12.3 L [place] % (Auto) 5.7 Eos % (Auto) 1.0 Baso % (Auto) 0.2 Lymph # (Auto) 2.0 [place] # (Auto) 0.9 Eos # (Auto) 0.2 Baso # (Auto) 0.0 Abs Immat Gran (auto) 0.10 H Absolute Neuts (auto) 13.0 H Absolute Nucleated RBC 0.000 Nucleated RBC % (auto) 0.0 PT INR D-Dimer High Sensitivty O2 Saturation 83.0 ABG pH at Pt Temp 7.43 ABG pCO2 at Pt Temp 32 ABG pO2 at Pt Temp 55 L ABG HCO3 22 ABG Base Excess (Actual) -1.4 Sodium Potassium Chloride Carbon Dioxide Anion Gap BUN Creatinine Estim Creat Clear Calc Estimated GFR Random Glucose Lactic Acid 1.0 Calcium Total Bilirubin AST ALT Alkaline Phosphatase Troponin I High Sens B-Natriuretic Peptide Total Protein Albumin COVID-19 (XANDER) COVID-19 Clin Com 08/01/22 06:31 WBC RBC Hgb Hct MCV MCH MCHC RDW Plt Count MPV Immature Gran % (Auto) Neut % (Auto) Lymph % (Auto) [place] % (Auto) Eos % (Auto) Baso % (Auto) Lymph # (Auto) [place] # (Auto) Eos # (Auto) Baso # (Auto) Abs Immat Gran (auto) Absolute Neuts (auto) Absolute Nucleated RBC Nucleated RBC % (auto) PT INR D-Dimer High Sensitivty O2 Saturation ABG pH at Pt Temp ABG pCO2 at Pt Temp ABG pO2 at Pt Temp ABG HCO3 ABG Base Excess (Actual) Sodium 142 Potassium 4.6 Chloride 111 H Carbon Dioxide 21 L Anion Gap 15 BUN 17 H Creatinine 1.09 Estim Creat Clear Calc 72.0 Estimated GFR > 60 Random Glucose 213 H Lactic Acid Calcium 8.2 L Total Bilirubin AST ALT Alkaline Phosphatase Troponin I High Sens B-Natriuretic Peptide Total Protein Albumin COVID-19 (XANDER) COVID-19 Clin Com Imaging Radiologist's impression: Impressions Chest X-Ray 07/31/22 21:25 IMPRESSION: *Multifocal airspace disease of the lungs with findings most pronounced in the right upper pulmonary lobe and left middle lung zone. Findings are suspicious for infection. *Diffuse vascular indistinctness and diffuse pulmonary reticular opacities with developing bibasilar Lamont B line. Findings are suspicious for moderate interstitial pulmonary edema. *Small bilateral pleural effusions. Assessment and Plan (1) Acute respiratory failure with hypoxia: Status: Acute Acute respiratory failure with hypoxia most likely related to multifocal pneumonia along with underlying severe COPD. He he does have finding of heart failure with bilateral leg edema as well as elevated BNP. Could represent right heart failure syndrome related to acute hypoxic respiratory failure with pulmonary vaso constriction acute cor pulmonale or could have a component of chronic cor pulmonale related to it with pulmonary hypertension. Also given multiple cardiovascular risk factors could have cardiomyopathy process either ischemic or nonischemic. Echocardiogram should be obtained. Continue treat his underlying pulmonary condition aggressively with replacement of oxygen as well as nebulizer treatment. Pulmonary consultation should be obtained. Continue antibiotic treatment as planned. Continue gentle diuresis with Lasix. Strict intake and output chart needs to be pursued. Continue to trend labs including Lexapro lytes and replace as needed. Consider using renin angiotensin aldosterone antagonist for his blood pressure control for both from heart failure as well as diabetic perspective inpatient underlying hypertension. Follow electrolytes closely. Will continue to follow with you Procedures Date of Service Date of Service: 08/01/22
[2022-08-01 09:29] LABS: Glucose, Whole Blood 214 mg/dL (60-115)
--- NOTE | 2022-08-01 10:00 | P.PNIM_ITS ---
Subjective Subjective Date of Service: 08/01/22 Interval History: cc: sob interval history:still sob, abd and chest discomfort Cardiovascular Cardiovascular: Reports no additional cardiovascular complaints Respiratory Respiratory: Reports no additional respiratory complaints Physical Exam Vital Signs: Vital Signs: Last Vital Signs Temp 98.5 F 08/01/22 07:17 Pulse 87 08/01/22 07:19 Resp 16 08/01/22 07:19 BP 148/82 H 08/01/22 07:17 Pulse Ox 94 08/01/22 07:17 O2 Del Method Nasal Cannula 08/01/22 07:17 O2 Flow Rate 93 08/01/22 07:17 Oxygen Flow Rate 15 07/31/22 22:42 BMI result Body Mass Index 25.2 General: AO X 3, inacute distress Resp: Crackles bilateral, accessory muscles used CVS: S1,S2,RRR GI: soft, non tender, distended Neuro: motor grossly intact, alert Psych: appropriate affect, appropriate insight Objective Data Active Medications Acetaminophen (Acetaminophen 325 Mg Tablet) 650 mg PO Q6H PRN PRN Reason: Pain, Mild (Pain Scale 1-3) Last Admin: 08/01/22 06:43 Dose: 650 mg Documented By: EMILEE Albuterol Sulfate (Albuterol Sulfate 90 Mcg 8 Gm Inhaler) 2 puff INHALE Q6H [facility] Last Admin: 08/01/22 07:17 Dose: 2 puff Documented By: MAYCOL Albuterol/Ipratropium (Albuterol/Iprat 2.5/0.5mg 3 Ml Ampul.Neb) 3 ml INHALE RQ4H PRN PRN Reason: Shortness of Breath/Wheezing Aspirin (Aspirin Enteric Coated 81 Mg Tablet.Dr) 81 mg PO DAILY [facility] Last Admin: 08/01/22 08:55 Dose: 81 mg Documented By: CLAY Atorvastatin Calcium (Atorvastatin Calcium 40 Mg Tablet) 40 mg PO DAILY [facility] Last Admin: 08/01/22 08:55 Dose: 40 mg Documented By: CLAY Dextrose (Dextrose 50 % 25 Gm/50 Ml Syringe) 25 gm IVPUSH Q15M PRN; Protocol PRN Reason: per Hypoglycemia Standing Ord. Enoxaparin Sodium (Enoxaparin Sodium 40 Mg/0.4 Ml Syringe) 40 mg SUBCUT BEDTIME [facility] Last Admin: 08/01/22 00:46 Dose: 40 mg Documented By: EMILEE Escitalopram Oxalate (Escitalopram Oxalate 10 Mg Tablet) 10 mg PO DAILY [facility] Last Admin: 08/01/22 08:55 Dose: 10 mg Documented By: CLAY Furosemide (Furosemide 40 Mg/4 Ml Vial) 40 mg IVPUSH BID@0900,1800 [facility]; Protocol Last Admin: 08/01/22 08:54 Dose: 40 mg Documented By: CLAY Gabapentin (Gabapentin 300 Mg Capsule) 300 mg PO TID [facility] Last Admin: 08/01/22 08:55 Dose: 300 mg Documented By: CLAY Glucose (Glucose Gel 15 Gm Gel..Gram.) 15 gm PO Q15M PRN; Protocol PRN Reason: per Hypoglycemia Standing Ord. Piperacillin Sod/Tazobactam (Sod 3.375 gm/ Sodium Chloride) 50 mls @ 100 mls/hr IV Q6H [facility] Last Admin: 08/01/22 08:55 Dose: 100 mls/hr Documented By: CLAY Vancomycin HCl 750 mg/ Sodium (Chloride) 265 mls @ 265 mls/hr IV Q12H [facility] Insulin Human Lispro (Insulin Lispro 100 Unit/Ml 3 Ml Vial) 0 unit SUBCUT QIDACHS [facility]; Protocol Last Admin: 08/01/22 08:54 Dose: Not Given Documented By: CLAY Non-Admin Reason: pt refused food Lisinopril (Lisinopril 40 Mg Tablet) 40 mg PO DAILY [facility]; Protocol Last Admin: 08/01/22 08:55 Dose: 40 mg Documented By: CLAY Melatonin (Melatonin 3 Mg Tablet) 6 mg PO BEDTIME PRN PRN Reason: Insomnia Metoclopramide HCl (Metoclopramide Hcl 10 Mg Tablet) 10 mg PO QID [facility] Last Admin: 08/01/22 08:55 Dose: 10 mg Documented By: CLAY Metoprolol Succinate (Metoprolol Succinate Er 100 Mg Tab.Er.24h) 100 mg PO DAILY [facility]; Protocol Last Admin: 08/01/22 08:55 Dose: 100 mg Documented By: CLAY Morphine Sulfate (Morphine Sulfate 2 Mg/Ml Cartridge) 1 mg IVPUSH Q4H PRN; Protocol PRN Reason: pain scale 4-10; sob Last Admin: 08/01/22 06:53 Dose: 1 mg Documented By: EMILEE Omeprazole (Omeprazole 40 Mg Capsule.Dr) 40 mg PO DAILY [facility] Last Admin: 08/01/22 08:54 Dose: 40 mg Documented By: CLAY Pharmacy Consult (Consult Rx Vancomycin Dosing) 1 each MISCELLANE DAILY PRN PRN Reason: Consult order Senna (Sennosides 8.6 Mg Tablet) 17.2 mg PO BEDTIME PRN PRN Reason: Constipation Sodium Chloride (0.9 % Sodium Chloride Flush 3 Ml Syringe) 3 ml IVFLUSH QSHIFT [facility] Last Admin: 08/01/22 09:02 Dose: 3 ml Documented By: CLAY Labs CBC & Chem 7: 08/01/22 06:31 08/01/22 06:31 Labs: Laboratory Results - last 24 hr 07/31/22 07/31/22 07/31/22 21:03 21:03 21:03 MCV 84.8 MCH 27.5 MCHC 32.5 RDW 16.8 H Plt Count 421 H D MPV 9.6 Immature Gran % (Auto) 1.1 H Neut % (Auto) 78.0 H Lymph % (Auto) 12.4 L [place] % (Auto) 6.8 Eos % (Auto) 1.4 Baso % (Auto) 0.3 Lymph # (Auto) 2.2 [place] # (Auto) 1.2 Eos # (Auto) 0.3 Baso # (Auto) 0.1 Abs Immat Gran (auto) 0.20 H Absolute Neuts (auto) 13.9 H Absolute Nucleated RBC 0.000 Nucleated RBC % (auto) 0.0 PT 10.7 INR 0.9 D-Dimer High Sensitivty 269 O2 Saturation ABG pH at Pt Temp ABG pCO2 at Pt Temp ABG pO2 at Pt Temp ABG HCO3 ABG Base Excess (Actual) Anion Gap 15 Estim Creat Clear Calc 60.4 Estimated GFR 59 POC Glucose Random Glucose 188 H Lactic Acid Calcium 8.6 D Total Bilirubin < 0.2 AST 16 ALT 29 Alkaline Phosphatase 133 H Troponin I High Sens B-Natriuretic Peptide Total Protein 6.4 L Albumin 3.6 COVID-19 ([facility]ER) COVID-19 Clin Com 07/31/22 07/31/22 07/31/22 21:03 21:03 21:03 MCV MCH MCHC RDW Plt Count MPV Immature Gran % (Auto) Neut % (Auto) Lymph % (Auto) [place] % (Auto) Eos % (Auto) Baso % (Auto) Lymph # (Auto) [place] # (Auto) Eos # (Auto) Baso # (Auto) Abs Immat Gran (auto) Absolute Neuts (auto) Absolute Nucleated RBC Nucleated RBC % (auto) PT INR D-Dimer High Sensitivty O2 Saturation ABG pH at Pt Temp ABG pCO2 at Pt Temp ABG pO2 at Pt Temp ABG HCO3 ABG Base Excess (Actual) Anion Gap Estim Creat Clear Calc Estimated GFR POC Glucose Random Glucose Lactic Acid Calcium Total Bilirubin AST ALT Alkaline Phosphatase Troponin I High Sens 9.0 D B-Natriuretic Peptide 442 H Total Protein Albumin COVID-19 (XANDER) Negative COVID-19 Member Desk Com See Note 07/31/22 08/01/22 08/01/22 21:16 00:34 06:31 MCV 86.2 MCH 27.9 MCHC 32.4 RDW 16.9 H Plt Count 390 MPV 9.8 Immature Gran % (Auto) 0.6 H Neut % (Auto) 80.2 H Lymph % (Auto) 12.3 L [place] % (Auto) 5.7 Eos % (Auto) 1.0 Baso % (Auto) 0.2 Lymph # (Auto) 2.0 [place] # (Auto) 0.9 Eos # (Auto) 0.2 Baso # (Auto) 0.0 Abs Immat Gran (auto) 0.10 H Absolute Neuts (auto) 13.0 H Absolute Nucleated RBC 0.000 Nucleated RBC % (auto) 0.0 PT INR D-Dimer High Sensitivty O2 Saturation 83.0 ABG pH at Pt Temp 7.43 ABG pCO2 at Pt Temp 32 ABG pO2 at Pt Temp 55 L ABG HCO3 22 ABG Base Excess (Actual) -1.4 Anion Gap Estim Creat Clear Calc Estimated GFR POC Glucose Random Glucose Lactic Acid 1.0 Calcium Total Bilirubin AST ALT Alkaline Phosphatase Troponin I High Sens B-Natriuretic Peptide Total Protein Albumin COVID-19 (XANDER) COVID-19 Member Desk Com 08/01/22 08/01/22 06:31 07:42 MCV MCH MCHC RDW Plt Count MPV Immature Gran % (Auto) Neut % (Auto) Lymph % (Auto) [place] % (Auto) Eos % (Auto) Baso % (Auto) Lymph # (Auto) [place] # (Auto) Eos # (Auto) Baso # (Auto) Abs Immat Gran (auto) Absolute Neuts (auto) Absolute Nucleated RBC Nucleated RBC % (auto) PT INR D-Dimer High Sensitivty O2 Saturation ABG pH at Pt Temp ABG pCO2 at Pt Temp ABG pO2 at Pt Temp ABG HCO3 ABG Base Excess (Actual) Anion Gap 15 Estim Creat Clear Calc 72.0 Estimated GFR > 60 POC Glucose 214 H Random Glucose 213 H Lactic Acid Calcium 8.2 L Total Bilirubin AST ALT Alkaline Phosphatase Troponin I High Sens B-Natriuretic Peptide Total Protein Albumin COVID-19 (XANDER) COVID-19 Clin Com Assessment and Plan (1) Acute respiratory failure with hypoxia: Status: Acute Plan 47M with PMH DM, PAD, HTN, HLD, COPD, depression, presented with sob. acute hypoxic respiratory failure due to acute on chronic diastolic chf iv lasix echo monitor electrolytes wean o2 as tolerated possible pneumonia - continue empiric vanc, zosyn HTN lisinopril, amldoipine hld statin pvd statin, asa mood disorder lexapro dvt prophylaxis - lovenox full code reason for continued hospitalization:severe hypoxia Quality Stroke Does the patient have a stroke diagnosis?: No VTE Prior VTE?: No VTE Risk Level:: Medical - moderate - high VTE Device Contraindication: Treatment Not Indicated VTE Drug Contraindication: N/A - Med Ordered
--- NOTE | 2022-08-01 11:33 | MHC.CM.PN ---
Attempted to meet with patient in regards to discharge planning. Patient currently sleeping. No family present. Will attempt to meet again. Continue to monitor for d/c needs.
[2022-08-01] MEDS: Albuterol/Iprat 2.5/0.5MG 3 ML AMPUL.NEB INHALE (11:44)
--- NOTE | 2022-08-01 12:04 | P.CONPL_ITS ---
History of Present Illness History of Present Illness Consult date: 08/01/22 Chief complaint: Hypoxia/pNEUMONIA Narrative: THIS 47 YEARS OLD GENTLEMAN IS BEING SEEN FOR PULMONARY CONSULT. PAST HISTORY IS REVIEWED. Includes hypertension, hyperlipidemia, diabetes mellitus complicated by peripheral neuropathy, peptic ulcer disease, Chronic anxiety and depression, , and most likely had chronic obstructive pulmonary disease. For which he has been on Spiriva Respimat 2 puffs daily, and in the past also had been on Anoro Ellipta once a day. He was treated at [facility] only about 10 days ago and discharged home on 07/25, to be followed up as outpatient for congestive heart failure and possible YARELIS. According to the history patient did not have any pneumonia while he was at [facility]. He denies any fever or chills but during the day he was feeling weak tired and short of breath. During his transport to the hospital he had acute respiratory failure with h ypoxemia and required use of BiPAP with oxygen supplementation. Since arrival here in the emergency room he has been able to come of the BiPAP , treated for a short period for high-flow but now he is on nasal cannula and oxygenating well. HISTORY OF SMOKING 1 A DAY FOR 29 YEARS, CURRENTLY DOWN TO 10 CIGARETTES A DAY. Review of Systems Review of Systems: Yes all other systems are reviewed and are negative Eyes: Eyes: Reports no additional eye complaints ENT: Reports system reviewed and no additional complaints, except as document ed Cardiovascular: Cardiovascular: Denies chest pain, Denies irregular heart rhythm and Denies leg edema Gastrointestinal: Gastrointestinal: Reports heartburn (Being treated with omeprazole) Genitourinary: Genitourinary: Reports no additional male genitourinary complaints Musculoskeletal: Musculoskeletal: Reports no additional musculoskeletal complaints Neurologic: Reports system reviewed and no additional complaints, except as documented Psychiatric: Psychiatric: Reports anxiety and Reports depression Endocrine: Endocrine: Reports other (Being treated for diabetes mellitus) Hematologic/Lymphatic: Hematologic/Lymphatic: Reports no additional hematologic/lymphatic complaints Allergic/Immunologic: Allergic/Immunologic: Reports no additional allergic/immunologic complaints [facility] Past Medical History Medical History Anxiety Asthma Diabetes HLD (hyperlipidemia) HTN (hypertension) Hypercholesteremia PAD (peripheral artery disease) Surgical History Surgical History S/P angiogram of extremity Social History Social History Alcohol intake: current Alcohol intake frequency: holidays/special occasions only Patient Tobacco Use Status: Current everyday Tobacco user Tobacco use type: Cigarette Cigarettes Per Day: 10 Years Smoked: 29 Smoked in Last 30 Days: Yes Second Hand Smoke Exposure: Yes Use of substances other than those prescribed or required for medical reasons: Yes Substance Use Type: Marijuana Substance Use Frequency: Occasionally Advance Directives: No service: No Current occupational status: unemployed Meds Allergies Allergy/AdvReac Type Severity Reaction Status Date / Time dulaglutide [From [facility]] Allergy Unknown Verified 01/02/22 21:08 metformin [METFORMIN] AdvReac Mild DIARRHEA, Verified 09/22/20 13:18 nausea and vomiting Active Medications: Current Medications Acetaminophen (Acetaminophen 325 Mg Tablet) 650 mg PO Q6H PRN PRN Reason: Pain, Mild (Pain Scale 1-3) Last Admin: 08/01/22 06:43 Dose: 650 mg Albuterol Sulfate (Albuterol Sulfate 90 Mcg 8 Gm Inhaler) 2 puff INHALE Q6H [facility] Last Admin: 08/01/22 07:17 Dose: 2 puff Albuterol/Ipratropium (Albuterol/Iprat 2.5/0.5mg 3 Ml Ampul.Neb) 3 ml INHALE RQ4H PRN PRN Reason: Shortness of Breath/Wheezing Last Admin: 08/01/22 11:44 Dose: 3 ml Aspirin (Aspirin Enteric Coated 81 Mg Tablet.Dr) 81 mg PO DAILY [facility] Last Admin: 08/01/22 08:55 Dose: 81 mg Atorvastatin Calcium (Atorvastatin Calcium 40 Mg Tablet) 40 mg PO DAILY [facility] Last Admin: 08/01/22 08:55 Dose: 40 mg Dextrose (Dextrose 50 % 25 Gm/50 Ml Syringe) 25 gm IVPUSH Q15M PRN; Protocol PRN Reason: per Hypoglycemia Standing Ord. Enoxaparin Sodium (Enoxaparin Sodium 40 Mg/0.4 Ml Syringe) 40 mg SUBCUT BEDTIME [facility] Last Admin: 08/01/22 00:46 Dose: 40 mg Escitalopram Oxalate (Escitalopram Oxalate 10 Mg Tablet) 10 mg PO DAILY [facility] Last Admin: 08/01/22 08:55 Dose: 10 mg Furosemide (Furosemide 40 Mg/4 Ml Vial) 40 mg IVPUSH BID@0900,1800 [facility]; Protocol Last Admin: 08/01/22 08:54 Dose: 40 mg Gabapentin (Gabapentin 300 Mg Capsule) 300 mg PO TID [facility] Last Admin: 08/01/22 08:55 Dose: 300 mg Glucose (Glucose Gel 15 Gm Gel..Gram.) 15 gm PO Q15M PRN; Protocol PRN Reason: per Hypoglycemia Standing Ord. Piperacillin Sod/Tazobactam (Sod 3.375 gm/ Sodium Chloride) 50 mls @ 100 mls/hr IV Q6H [facility] Last Infusion: 08/01/22 11:17 Dose: Infused Vancomycin HCl 750 mg/ Sodium (Chloride) 265 mls @ 265 mls/hr IV Q12H [facility] Insulin Human Lispro (Insulin Lispro 100 Unit/Ml 3 Ml Vial) 0 unit SUBCUT QIDACHS [facility]; Protocol Last Admin: 08/01/22 08:54 Dose: Not Given Lisinopril (Lisinopril 40 Mg Tablet) 40 mg PO DAILY [facility]; Protocol Last Admin: 08/01/22 08:55 Dose: 40 mg Melatonin (Melatonin 3 Mg Tablet) 6 mg PO BEDTIME PRN PRN Reason: Insomnia Metoclopramide HCl (Metoclopramide Hcl 10 Mg Tablet) 10 mg PO QID [facility] Last Admin: 08/01/22 08:55 Dose: 10 mg Metoprolol Succinate (Metoprolol Succinate Er 100 Mg Tab.Er.24h) 100 mg PO DAILY [facility]; Protocol Last Admin: 08/01/22 08:55 Dose: 100 mg Morphine Sulfate (Morphine Sulfate 2 Mg/Ml Cartridge) 1 mg IVPUSH Q4H PRN; Protocol PRN Reason: pain scale 4-10; sob Last Admin: 08/01/22 06:53 Dose: 1 mg Omeprazole (Omeprazole 40 Mg Capsule.Dr) 40 mg PO DAILY [facility] Last Admin: 08/01/22 08:54 Dose: 40 mg Pharmacy Consult (Consult Rx Vancomycin Dosing) 1 each MISCELLANE DAILY PRN PRN Reason: Consult order Senna (Sennosides 8.6 Mg Tablet) 17.2 mg PO BEDTIME PRN PRN Reason: Constipation Sodium Chloride (0.9 % Sodium Chloride Flush 3 Ml Syringe) 3 ml IVFLUSH QSHIFT [facility] Last Admin: 08/01/22 09:02 Dose: 3 ml Home Medications Medication Instructions Recorded Confirmed Last Taken Type albuterol sulfate 90 mcg/actuation 2 puff inhalation Q6H 08/01/22 08/01/22 Unknown History aerosol inhaler amlodipine 5 mg tablet 1 tab PO DAILY 08/01/22 08/01/22 Unknown History aspirin 81 mg tablet,delayed 1 tab PO DAILY 08/01/22 08/01/22 Unknown History release atorvastatin 40 mg tablet 1 tab PO DAILY 08/01/22 08/01/22 Unknown History escitalopram oxalate 10 mg tablet 1 tab PO DAILY 08/01/22 08/01/22 Unknown History gabapentin 300 mg capsule 1 cap PO TID 08/01/22 08/01/22 Unknown History insulin lispro 100 unit/mL See Rx Instructions .Route .COMPLEX 08/01/22 08/01/22 Unknown History subcutaneous solution lisinopril 40 mg tablet 1 tab PO DAILY 08/01/22 08/01/22 Unknown History metoclopramide HCl 10 mg tablet 1 tab PO QID 08/01/22 08/01/22 Unknown History metoprolol succinate 100 mg 1 tab PO DAILY 08/01/22 08/01/22 Unknown History tablet,extended release 24 hr omeprazole 40 mg capsule,delayed 1 cap PO DAILY 08/01/22 08/01/22 Unknown History release tiotropium bromide 1.25 2 puff inhalation DAILY 08/01/22 08/01/22 Unknown History mcg/actuation mist for inhalation (Spiriva Respimat) trazodone 50 mg tablet 1 - 2 tab PO BEDTIME 08/01/22 08/01/22 Unknown History Physical Exam Vital Signs: Vital Signs: Last Vital Signs Temp 98.5 F 08/01/22 07:17 Pulse 77 08/01/22 11:44 Resp 20 08/01/22 11:44 BP 148/82 H 08/01/22 07:17 Pulse Ox 94 08/01/22 07:17 O2 Del Method Nasal Cannula 08/01/22 07:17 O2 Flow Rate 93 08/01/22 07:17 Oxygen Flow Rate 15 07/31/22 22:42 BMI result Body Mass Index 25.2 Const: General: comfortable (Moderately short of breath and somewhat anxious), no acute distress, alert and awake Orientation/consciousness: patient oriented x3 HEENT: Head: Yes normal to inspection General nose exam: No nasal polyps present and No nasal discharge present Face and sinus: Yes sinuses nontender Mouth: oropharynx abnormals (Oropharynx is narrow, Mallampati class 4) Throat: Yes posterior oropharynx normal Eyes: General: appearance normal, both eyes and all related structures Neck: Neck: Yes normal visual inspection, Yes no lymphadenopathy, Yes trachea midline, Yes no JVD and Yes other (Neck is short and obese) Thyroid: Thyroid normal Chest: Chest palpation & inspection: normal inspection of the chest, normal palpation of entire chest wall and no tenderness Resp: Other: Percussion note resonant, breath sounds are distant and much decreased over the lower lobes. Inspiratory crepitations over the left mid chest and lower lobe, and also over the right lower lobe area. No wheezing. Cardio: Palpation: normal PMI Rate: regular rate Rhythm: regular rhythm Heart sounds: no gallops and no murmurs Peripheral pulses: Peripheral pulses 2+ throughout GI: Palpation (GI): Soft to palpation, nontender, No hepatosplenomegaly p resent and no masses Auscultation: normal bowel sounds Back/Spine/Pelvis: Other: Not examine Thoracic/Lumbar Spine: thoracic and lumbar spine normal to inspection Skin: General skin exam: no rashes or lesions noted Neuro: Other: Patient in the bed, full neurologic examination not performed. General: patient oriented x3 and no focal motor deficits Cranial nerves: Yes CN's II-XII int act bilaterally Extrem: General: Yes normal to inspection, Yes no clubbing, cyanosis or edema and Yes no calf tenderness Psych: Speech and movement: Normal speech and movement present Affect: Anxious affect present Results Laboratory Findings CBC and BMP: 08/01/22 06:31 08/01/22 06:31 ABG, PT/INR, D-dimer: PT/INR, D-dimer PT 10.7 SEC (10.0-13.1) 07/31/22 21:03 INR 0.9 (0.9-1.1) 07/31/22 21:03 Abnormal lab findings: Abnormal Labs 07/31/22 07/31/22 07/31/22 21:03 21:03 21:03 WBC 17.8 H RBC 3.56 L D Hgb 9.8 L Hct 30.2 L D RDW 16.8 H Plt Count 421 H D Immature Gran % (Auto) 1.1 H Neut % (Auto) 78.0 H Lymph % (Auto) 12.4 L Abs Immat Gran (auto) 0.20 H Absolute Neuts (auto) 13.9 H ABG pO2 at Pt Temp Chloride 110 H Carbon Dioxide 21 L BUN 19 H POC Glucose Random Glucose 188 H Calcium Alkaline Phosphatase 133 H B-Natriuretic Peptide 442 H Total Protein 6.4 L 08/01/22 08/01/22 08/01/22 00:34 06:31 06:31 WBC 16.2 H RBC 3.33 L Hgb 9.3 L Hct 28.7 L RDW 16.9 H Plt Count Immature Gran % (Auto) 0.6 H Neut % (Auto) 80.2 H Lymph % (Auto) 12.3 L Abs Immat Gran (auto) 0.10 H Absolute Neuts (auto) 13.0 H ABG pO2 at Pt Temp 55 L Chloride 111 H Carbon Dioxide 21 L BUN 17 H POC Glucose Random Glucose 213 H Calcium 8.2 L Alkaline Phosphatase B-Natriuretic Peptide Total Protein 08/01/22 07:42 WBC RBC Hgb Hct RDW Plt Count Immature Gran % (Auto) Neut % (Auto) Lymph % (Auto) Abs Immat Gran (auto) Absolute Neuts (auto) ABG pO2 at Pt Temp Chloride Carbon Dioxide BUN POC Glucose 214 H Random Glucose Calcium Alkaline Phosphatase B-Natriuretic Peptide Total Protein Diagnostic Findings Chest x-ray: report reviewed and image reviewed Assessment and Plan (1) Pneumonia: Status: Acute (2) Acute respiratory failure with hypoxia: Status: Acute (3) Congestive heart failure: Status: Acute Plan PATIENT HAS BILATERAL MULTI LOBAR PNEUMONIA. RADIOLOGIC PICTURE IS CONSISTENT WITH COVID 19 PNEUMONIA, BUT HIS COVID TEST IS NEGATIVE. SO MOST LIKELY HE HAS HEALTHCARE ASSOCIATED PNEUMONIA AT THIS TIME BECAUSE OF HIS RECENT HOSPITALIZATION. I WOULD RECOMMEND TREATING HIM WITH COMBINATION OF VANCO AND ZOSYN UNTIL WE HAVE CULTURE REPORTS. HE IS HAVING PICTURE OF ARDS AT THIS TIME WITH HYPOXEMIC RESPIRATORY FAILURE. THIS NEEDS TO BE TREATED WITH OXYGEN SUPPLEMENTATION, USING NASAL CANNULA , ARE VENTI MASK, OR HIGH-FLOW NEEDED. GOAL IS TO KEEP O2 SAT ABOVE 90% IF SITUATION WORSENS THEN HE MAY NEED NONINVASIVE VENTILATORY SUPPORT ( BIPAP) IF RESPIRATORY STATUS WORSENS THEN HE SHOULD HAVE CT SCAN OF THE CHEST FOR MORE DETAILED EVALUATION. BECAUSE OF HIS HISTORY OF COPD, I THINK HE WILL BENEFIT FROM IV SOLU-MEDROL 40 MG Q.8 HOURS. ALSO USE DUONEB UPDRAFTS Q 6 HOURS W/A . THANK YOU VERY MUCH FOR ASTHMA TO SEE THIS GENTLEMAN. Procedures Date of Service Date of Service: 08/01/22
--- NOTE | 2022-08-01 14:25 | P.CNID_ITS ---
History of Present Illness Data of Consult Service Date: 08/01/22 Requesting physician: Garret Cifuentes Primary Care Provider: Zari Henry MD HPI Reason for consult: shortness of breath,hypoxia He presents with shortness of breath and hypoxia on arrival for a day. He is now 93% on 4liters COVID test is negative CXR shows multifocal infiltrate,CHF,mild pulmonary effusion. He has chronically elevated WBC He was hospitalized [facility] and just discharged end Septembe abdominal pain and no pneumonia there on CT. Review of Systems Review of Systems: Yes all other systems are reviewed and are negative [facility] Past Medical History Medical History Anxiety Asthma Diabetes HLD (hyperlipidemia) HTN (hypertension) Hypercholesteremia PAD (peripheral artery disease) Family History Family history: reviewed and not pertinent Surgical History Surgical History S/P angiogram of extremity Social History Social History Alcohol intake: current Alcohol intake frequency: holidays/special occasions only Patient Tobacco Use Status: Current everyday Tobacco user Tobacco use type: Cigarette Cigarettes Per Day: 10 Years Smoked: 29 Smoked in Last 30 Days: Yes Second Hand Smoke Exposure: Yes Use of substances other than those prescribed or required for medical reasons: Yes Substance Use Type: Marijuana Substance Use Frequency: Occasionally Advance Directives: No service: No Current occupational status: unemployed Meds Allergies Allergy/AdvReac Type Severity Reaction Status Date / Time dulag[facility]ide [[facility]] Allergy Unknown Verified 01/02/22 21:08 metformin [METFORMIN] AdvReac Mild DIARRHEA, Verified 09/22/20 13:18 nausea and vomiting Active Medications: Current Medications Acetaminophen (Acetaminophen 325 Mg Tablet) 650 mg PO Q6H PRN PRN Reason: Pain, Mild (Pain Scale 1-3) Last Admin: 08/01/22 06:43 Dose: 650 mg Albuterol Sulfate (Albuterol Sulfate 90 Mcg 8 Gm Inhaler) 2 puff INHALE Q6H [facility] Last Admin: 08/01/22 07:17 Dose: 2 puff Albuterol/Ipratropium (Albuterol/Iprat 2.5/0.5mg 3 Ml Ampul.Neb) 3 ml INHALE RQ4H PRN PRN Reason: Shortness of Breath/Wheezing Last Admin: 08/01/22 11:44 Dose: 3 ml Aspirin (Aspirin Enteric Coated 81 Mg Tablet.Dr) 81 mg PO DAILY [facility] Last Admin: 08/01/22 08:55 Dose: 81 mg Atorvastatin Calcium (Atorvastatin Calcium 40 Mg Tablet) 40 mg PO DAILY [facility] Last Admin: 08/01/22 08:55 Dose: 40 mg Dextrose (Dextrose 50 % 25 Gm/50 Ml Syringe) 25 gm IVPUSH Q15M PRN; Protocol PRN Reason: per Hypoglycemia Standing Ord. Enoxaparin Sodium (Enoxaparin Sodium 40 Mg/0.4 Ml Syringe) 40 mg SUBCUT BEDTIME [facility] Last Admin: 08/01/22 00:46 Dose: 40 mg Escitalopram Oxalate (Escitalopram Oxalate 10 Mg Tablet) 10 mg PO DAILY [facility] Last Admin: 08/01/22 08:55 Dose: 10 mg Furosemide (Furosemide 40 Mg/4 Ml Vial) 40 mg IVPUSH BID@0900,1800 [facility]; Protocol Last Admin: 08/01/22 08:54 Dose: 40 mg Gabapentin (Gabapentin 300 Mg Capsule) 300 mg PO TID [facility] Last Admin: 08/01/22 08:55 Dose: 300 mg Glucose (Glucose Gel 15 Gm Gel..Gram.) 15 gm PO Q15M PRN; Protocol PRN Reason: per Hypoglycemia Standing Ord. Piperacillin Sod/Tazobactam (Sod 3.375 gm/ Sodium Chloride) 50 mls @ 100 mls/hr IV Q6H [facility] Last Infusion: 08/01/22 11:17 Dose: Infused Vancomycin HCl 750 mg/ Sodium (Chloride) 265 mls @ 265 mls/hr IV Q12H [facility] Insulin Human Lispro (Insulin Lispro 100 Unit/Ml 3 Ml Vial) 0 unit SUBCUT QIDACHS [facility]; Protocol Last Admin: 08/01/22 08:54 Dose: Not Given Lisinopril (Lisinopril 40 Mg Tablet) 40 mg PO DAILY [facility]; Protocol Last Admin: 08/01/22 08:55 Dose: 40 mg Melatonin (Melatonin 3 Mg Tablet) 6 mg PO BEDTIME PRN PRN Reason: Insomnia Metoclopramide HCl (Metoclopramide Hcl 10 Mg Tablet) 10 mg PO QID [facility] Last Admin: 08/01/22 08:55 Dose: 10 mg Metoprolol Succinate (Metoprolol Succinate Er 100 Mg Tab.Er.24h) 100 mg PO DAILY [facility]; Protocol Last Admin: 08/01/22 08:55 Dose: 100 mg Morphine Sulfate (Morphine Sulfate 2 Mg/Ml Cartridge) 1 mg IVPUSH Q4H PRN; Protocol PRN Reason: pain scale 4-10; sob Last Admin: 08/01/22 06:53 Dose: 1 mg Omeprazole (Omeprazole 40 Mg Capsule.Dr) 40 mg PO DAILY [facility] Last Admin: 08/01/22 08:54 Dose: 40 mg Pharmacy Consult (Consult Rx Vancomycin Dosing) 1 each MISCELLANE DAILY PRN PRN Reason: Consult order Senna (Sennosides 8.6 Mg Tablet) 17.2 mg PO BEDTIME PRN PRN Reason: Constipation Sodium Chloride (0.9 % Sodium Chloride Flush 3 Ml Syringe) 3 ml IVFLUSH QSHIFT [facility] Last Admin: 08/01/22 09:02 Dose: 3 ml Home Medications Medication Instructions Recorded Confirmed Last Taken Type albuterol sulfate 90 mcg/actuation 2 puff inhalation Q6H 08/01/22 08/01/22 Unknown History aerosol inhaler amlodipine 5 mg tablet 1 tab PO DAILY 08/01/22 08/01/22 Unknown History aspirin 81 mg tablet,delayed 1 tab PO DAILY 08/01/22 08/01/22 Unknown History release atorvastatin 40 mg tablet 1 tab PO DAILY 08/01/22 08/01/22 Unknown History escitalopram oxalate 10 mg tablet 1 tab PO DAILY 08/01/22 08/01/22 Unknown History gabapentin 300 mg capsule 1 cap PO TID 08/01/22 08/01/22 Unknown History insulin lispro 100 unit/mL See Rx Instructions .Route .COMPLEX 08/01/22 08/01/22 Unknown History subcutaneous solution lisinopril 40 mg tablet 1 tab PO DAILY 08/01/22 08/01/22 Unknown History metoclopramide HCl 10 mg tablet 1 tab PO QID 08/01/22 08/01/22 Unknown History metoprolol succinate 100 mg 1 tab PO DAILY 08/01/22 08/01/22 Unknown History tablet,extended release 24 hr omeprazole 40 mg capsule,delayed 1 cap PO DAILY 08/01/22 08/01/22 Unknown History release tiotropium bromide 1.25 2 puff inhalation DAILY 08/01/22 08/01/22 Unknown History mcg/actuation mist for inhalation (Spiriva Respimat) trazodone 50 mg tablet 1 - 2 tab PO BEDTIME 08/01/22 08/01/22 Unknown History Physical Exam Vital Signs: Vital Signs: Last Vital Signs Temp 98.5 F 08/01/22 07:17 Pulse 77 08/01/22 11:44 Resp 20 08/01/22 11:44 BP 148/82 H 08/01/22 07:17 Pulse Ox 94 08/01/22 07:17 O2 Del Method Nasal Cannula 08/01/22 07:17 O2 Flow Rate 93 08/01/22 07:17 Oxygen Flow Rate 15 07/31/22 22:42 BMI result Body Mass Index 25.2 Const: General: cooperative HEENT: Head: Yes normal to inspection Face and sinus: Yes normal facial exam Mouth: Normal oral and palatal mucosa present Teeth and gingiva: dentition normal Eyes: General: appearance normal, both eyes and all related structures Pupils: Equal, round and reactive pupils present Resp: Other: rhonchi throughout Cardio: Rate: regular rate Rhythm: regular rhythm GI: Palpation (GI): Soft to palpation and nontender : General: Yes no CVA tenderness Back/Spine/Pelvis: Back: no CVA tenderness Skin: General skin exam: no rashes or lesions noted Neuro: General: moves all extremities Cranial nerves: Yes Equal, round and reactive pupils present Extrem: General: Yes normal to inspection Psych: Appearance: grossly normal Results Labs CBC & Chem 7: 08/01/22 06:31 08/01/22 06:31 Labs: Short CBC 07/31/22 08/01/22 Range/Units 21:03 06:31 WBC 17.8 H 16.2 H (4.8-10.8) X10*3/uL Hgb 9.8 L 9.3 L (14.0-18.0) g/dl Hct 30.2 L D 28.7 L (42.0-52.0) % Plt Count 421 H D 390 (160-400) X10*3/uL BMP 07/31/22 08/01/22 21:03 06:31 Sodium 142 142 Potassium 4.4 4.6 Chloride 110 H 111 H Carbon Dioxide 21 L 21 L BUN 19 H 17 H Creatinine 1.30 1.09 Calcium 8.6 D 8.2 L Liver Function 07/31/22 Range/Units 21:03 Total Bilirubin < 0.2 (0.0-1.0) mg/dL AST 16 (5-37) U/L ALT 29 (0-40) U/L Alkaline Phosphatase 133 H (39-117) U/L Albumin 3.6 (3.5-5.0) g/dL Assessment and Plan (1) Acute respiratory failure with hypoxia: Status: Acute Possible HCAP but also possible atypical causes Need to check Legionella and HIV (2) Pneumonia: Status: Acute (3) Congestive heart failure: Status: Acute Plan May continue Vancomycin and Zosyn cover HAP Add Doxycycline for atypical coverage Check HIV and urine Legionella. Likely discharge on po Doxycycline for a week.
[2022-08-01 14:30] LABS: Glucose, Whole Blood 260 mg/dL (60-115)
[2022-08-01] MEDS: Doxycycline Hyclate 100 MG in 0.9 % Sodium Chloride 250 ML 166.67 MG IV (16:56)
--- NOTE | 2022-08-01 19:15 | PC.NURSE ---
Patient hypoxic in Resp distress. Resp paged to initiate bypap
[2022-08-01] MEDS: vancomycin HCL 750 MG in 0.9 % Sodium Chloride 250 ML 265 MG IV (19:32)
[2022-08-01 21:17] LABS: Glucose, Whole Blood 248 mg/dL (60-115)
[2022-08-01] MEDS: Insulin Lispro 100 UNIT/ML 3 ML VIAL SUBCUT (21:26)
--- NOTE | 2022-08-01 22:35 | PC.NURSE ---
Patient appears more comfortable at rest but with any movement his oxygen drops to 81% on BIPAP. Mask removed for 5 minutes to give meds and patient immediately became hypoxic. Hospitalist aware
[2022-08-02] VITALS (13 sets, daily range): BP systolic 100–179; BP diastolic 58–91; PULSE 73–94; RESP 18–27; TEMP 36.7–37.2; O2SAT 90–94
--- NOTE | 2022-08-02 02:05 | PC.NURSE ---
Patient moved to hospital bed for comfort and ease of positioning. He appears more comfortable on High flow NC and is able to move around the bed only dropping his sat to 88%. He quickly recovers to 92-94% with reminder to take a deep breath through his nose. he states he has finally been able to sleep in short bursts.
[2022-08-02] MEDS: Piperacillin Sodium/Tazobactam 3.375 GM in 0.9 % Sodium Chloride 50 ML IV ×4 (03:13→21:30)
[2022-08-02] MEDS: Morphine Sulfate 2 MG/ML CARTRIDGE 1 MG IVPUSH ×3 (03:15→21:51)
[2022-08-02] MEDS: Doxycycline Hyclate 100 MG in 0.9 % Sodium Chloride 250 ML 166.67 MG IV ×2 (03:21→15:03)
[2022-08-02] MEDS: Melatonin 3 MG TABLET 6 MG PO ×2 (03:26→22:59)
[2022-08-02] MEDS: vancomycin HCL 750 MG in 0.9 % Sodium Chloride 250 ML 265 MG IV (03:26)
[2022-08-02] MEDS: Acetaminophen 325 MG TABLET 650 MG PO ×2 (03:26→09:56)
[2022-08-02 07:46] LABS: Hematocrit 28.9 % (42.0-52.0); Hemoglobin 9.2 g/dl (14.0-18.0); Mean Corpuscular HGB Conc 31.8 g/dl (31.0-36.0); Mean Corpuscular Hemoglobin 27.8 pg (27.0-33.0); Mean Corpuscular Volume 87.3 fL (80.0-98.0); Mean Platelet Volume 10.5 fL (9.4-12.4); Platelet Count 378 X10*3/uL (160-400); Red Blood Count 3.31 X10*6/uL (4.60-5.80); Red Cell Distribution Width 17.1 % (11.0-16.0); White Blood Count 15.6 X10*3/uL (4.8-10.8)
[2022-08-02 07:49] LABS: Glucose, Whole Blood 184 mg/dL (60-115)
[2022-08-02] MEDS: Metoclopramide HCl 10 MG TABLET PO ×4 (07:59→22:59)
[2022-08-02] MEDS: Gabapentin 300 MG CAPSULE PO ×3 (07:59→21:30)
[2022-08-02] MEDS: Aspirin Enteric Coated 81 MG TABLET.DR PO (08:00)
[2022-08-02] MEDS: Metoprolol Succinate ER 100 MG TAB.ER.24H PO (08:00)
[2022-08-02] MEDS: Atorvastatin Calcium 40 MG TABLET PO (08:00)
[2022-08-02] MEDS: Omeprazole 40 MG CAPSULE.DR PO (08:01)
[2022-08-02] MEDS: Escitalopram Oxalate 10 MG TABLET PO (08:01)
[2022-08-02 08:02] LABS: HIV AB/AG Nonreactive (Nonreactive)
[2022-08-02] MEDS: lisinopriL 40 MG TABLET PO (08:02)
[2022-08-02] MEDS: Insulin Lispro 100 UNIT/ML 3 ML VIAL SUBCUT ×3 (08:02→18:26)
[2022-08-02] MEDS: 0.9 % Sodium Chloride Flush 3 ML SYRINGE IVFLUSH ×3 (08:02→23:02)
[2022-08-02] MEDS: methylPREDNISolone Sod Succ 40 MG/ML VIAL IVPUSH ×3 (08:04→23:26)
[2022-08-02 08:18] LABS: Anion Gap 21 (12-20); Blood Urea Nitrogen 23 mg/dL (9-16); Carbon Dioxide 18 mmol/L (22-29); Chloride 109 mmol/L (96-108); Creatinine Clr Calc Pharmacy 41.3; Estimated Glomerular Filt Rate 38; Glucose Fasting 183 mg/dL (60-99); Magnesium 1.3 mg/dL (1.6-2.6); Potassium 4.7 mmol/L (3.3-5.1); Sodium 143 mmol/L (135-145)
--- NOTE | 2022-08-02 09:48 | PM.PNPUL ---
Subjective Subjective Date of Service: 08/02/22 Principal diagnosis: HCAP/Resp. Distress Interval history: This gentleman is seen for pulmonary follow-up. He claims that his breathing is ease year and he is less tachypneic. Has been afebrile, minimal cough at this time. Still requiring high-flow O2, at 40 L/minute. Objective Data Labs CBC & Chem 7: 08/02/22 07:19 08/02/22 07:19 Labs: Laboratory Results - last 24 hr 08/01/22 08/01/22 08/01/22 14:27 14:49 21:13 WBC RBC Hgb Hct MCV MCH MCHC RDW Plt Count MPV Absolute Nucleated RBC Nucleated RBC % (auto) Sodium Potassium Chloride Carbon Dioxide Anion Gap BUN Creatinine Estim Creat Clear Calc Estimated GFR POC Glucose 260 H 248 H Fasting Glucose Calcium Magnesium HIV 1&2 Ab/P24 Ag 4thGn Nonreactive 08/02/22 08/02/22 08/02/22 07:19 07:19 07:37 WBC 15.6 H RBC 3.31 L Hgb 9.2 L Hct 28.9 L MCV 87.3 MCH 27.8 MCHC 31.8 RDW 17.1 H Plt Count 378 MPV 10.5 Absolute Nucleated RBC 0.000 Nucleated RBC % (auto) 0.0 Sodium 143 Potassium 4.7 Chloride 109 H Carbon Dioxide 18 L Anion Gap 21 H BUN 23 H Creatinine 1.90 H Estim Creat Clear Calc 41.3 Estimated GFR 38 POC Glucose 184 H Fasting Glucose 183 H Calcium 8.0 L Magnesium 1.3 L* HIV 1&2 Ab/P24 Ag 4thGn Microbiology Microbiology Results: Microbiology 07/31/22 21:16 Blood - Venous Blood Culture - Preliminary No growth after 24 hours. 07/31/22 21:16 Blood - Venous Blood Culture - Preliminary No growth after 24 hours. 07/31/22 21:16 Blood - Venous Blood Culture - Preliminary No growth after 24 hours. Review of Systems Review of Systems Yes all other systems are reviewed and are negative Eyes: Reports no additional eye complaints Reports system reviewed and no additional complaints, except as documented Cardiovascular: Denies chest pain, Denies irregular heart rhythm and Denies leg edema Respiratory: Reports as per HPI Gastrointestinal: Reports no additional gastrointestinal complaints and Reports heartburn (Being treated with omeprazole) Genitourinary: Reports no additional male genitourinary complaints Musculoskeletal: Reports no additional musculoskeletal complaints Reports system reviewed and no additional complaints, except as documented Psychiatric: Reports anxiety and Reports depression Endocrine: Reports other (Being treated for diabetes mellitus) Hematologic/Lymphatic: Reports no additional hematologic/lymphatic complaints Allergic/Immunologic: Reports no additional allergic/immunologic complaints Physical Exam Vital Signs: Vital Signs: Last Vital Signs Temp 98.7 F 08/02/22 07:31 Pulse 77 08/02/22 07:31 Resp 20 08/02/22 07:58 BP 151/70 H 08/02/22 07:31 Pulse Ox 91 L 08/02/22 07:31 O2 Del Method 08/02/22 07:31 O2 Flow Rate 40 08/02/22 07:31 FiO2 70 08/02/22 07:31 Oxygen Flow Rate 15 07/31/22 22:42 BMI result Body Mass Index 25.2 Const: General: comfortable (Moderately short of breath and somewhat anxious), no acute distress, alert and awake Orientation/consciousness: patient oriented x3 HEENT: Head: Yes normal to inspection General nose exam: No nasal polyps present and No nasal discharge present Face and sinus: Yes sinuses nontender Mouth: oropharynx abnormals (Oropharynx is narrow, Mallampati class 4) Throat: Yes posterior oropharynx normal Eyes: General: appearance normal, both eyes and all related structures Neck: Neck: Yes normal visual inspection, Yes no lymphadenopathy, Yes trachea midline, Yes no JVD and Yes other (Neck is short and obese) Thyroid: Thyroid normal Chest: Chest palpation & inspection: normal inspection of the chest, normal palpation of entire chest wall and no tenderness Resp: Other: Percussion note resonant, breath sounds are distant and much decreased over the lower lobes. Inspiratory crepitations over the left mid chest and lower lobe, and also over the right lower lobe area, slightly decreased from yesterday. No wheezing. Cardio: Palpation: normal PMI Rate: regular rate Rhythm: regular rhythm Heart sounds: no gallops and no murmurs Peripheral pulses: Peripheral pulses 2+ throughout GI: Palpation (GI): Soft to palpation, nontender, No hepatosplenomegaly present and no masses Auscultation: normal bowel sounds Back/Spine/Pelvis: Other: Not examine Thoracic/Lumbar Spine: thoracic and lumbar spine normal to inspection Skin: General skin exam: no rashes or lesions noted Neuro: Other: Patient in the bed, full neurologic examination not performed. General: patient oriented x3 and no focal motor deficits Cranial nerves: Yes CN's II-XII intact bilaterally Extrem: General: Yes normal to inspection, Yes no clubbing, cyanosis or edema and Yes no calf tenderness Psych: Speech and movement: Normal speech and movement present Affect: Anxious affect present Procedures Date of Service Date of Service: 08/02/22 Assessment and Plan Assessment and plan (1) Pneumonia: Status: Acute (2) Acute respiratory failure with hypoxia: Status: Acute Plan This 47 years old gentleman is being treated for healthcare acquired pneumonia, With acute respiratory distress syndrome. Clinically he seems to have improved. Still requiring high-flow O2 at 40 L/minute. He is on triple antibiotic therapy including IV vancomycin, Zosyn and doxycycline. He is on IV Solu-Medrol 40 mg t.i.d., and getting DuoNeb updrafts q.4 hours p.r.n.. Recc . Wean down on FiO2 as tolerated, as long as O2 sat is above 90%. Continue present medical regimen. Chest x-ray for follow-up. Time Spent With Patient Time: Total time spent is greater than 50% in coordination of care (as documented) at patient's floor/unit and/or counseling patient: Progress Note: Quality Stroke Does the patient have a stroke diagnosis?: No
[2022-08-02] MEDS: Magnesium Oxide 400 MG TABLET PO ×2 (09:57→16:58)
--- NOTE | 2022-08-02 09:58 | MHC.CM.PN ---
Attempted to meet with patient in regards to discharge planning. Nursing care currently being provided. Case management assessment completed using medical record. Patient received 2 Moderna vaccines. HCP verified to be on file. Patient is from home without services. Continue to monitor for d/c needs.
--- NOTE | 2022-08-02 10:00 | HO.PM.IMPN ---
Subjective Subjective Date of Service: 08/02/22 Interval History: cc: sob interval history:ongiong sob, minimal improvement Cardiovascular Cardiovascular: Reports no additional cardiovascular complaints Respiratory Respiratory: Reports no additional respiratory complaints Physical Exam Vital Signs: Vital Signs: Last Vital Signs Temp 98.7 F 08/02/22 07:31 Pulse 77 08/02/22 07:31 Resp 20 08/02/22 07:58 BP 151/70 H 08/02/22 07:31 Pulse Ox 91 L 08/02/22 07:31 O2 Del Method 08/02/22 07:31 O2 Flow Rate 40 08/02/22 07:31 FiO2 70 08/02/22 07:31 Oxygen Flow Rate 15 07/31/22 22:42 BMI result Body Mass Index 25.2 General: AO X 3, inacute distress Resp: Crackles bilateral, accessory muscles used CVS: S1,S2,RRR GI: soft, non tender, distended Neuro: motor grossly intact, alert Psych: appropriate affect, appropriate insight Objective Data Active Medications Acetaminophen (Acetaminophen 325 Mg Tablet) 650 mg PO Q6H PRN PRN Reason: Pain, Mild (Pain Scale 1-3) Last Admin: 08/02/22 09:56 Dose: 650 mg Documented By: SHANTE Albuterol Sulfate (Albuterol Sulfate 90 Mcg 8 Gm Inhaler) 2 puff INHALE Q6H [facility] Last Admin: 08/02/22 05:51 Dose: Not Given Documented By: BRE Non-Admin Reason: Patient Asleep Albuterol/Ipratropium (Albuterol/Iprat 2.5/0.5mg 3 Ml Ampul.Neb) 3 ml INHALE RQ4H PRN PRN Reason: Shortness of Breath/Wheezing Last Admin: 08/01/22 11:44 Dose: 3 ml Documented By: MAYCOL Aspirin (Aspirin Enteric Coated 81 Mg Tablet.Dr) 81 mg PO DAILY [facility] Last Admin: 08/02/22 08:00 Dose: 81 mg Documented By: KORI Atorvastatin Calcium (Atorvastatin Calcium 40 Mg Tablet) 40 mg PO DAILY [facility] Last Admin: 08/02/22 08:00 Dose: 40 mg Documented By: KORI Dextrose (Dextrose 50 % 25 Gm/50 Ml Syringe) 25 gm IVPUSH Q15M PRN; Protocol PRN Reason: per Hypoglycemia Standing Ord. Enoxaparin Sodium (Enoxaparin Sodium 40 Mg/0.4 Ml Syringe) 40 mg SUBCUT BEDTIME [facility] Last Admin: 08/01/22 21:26 Dose: 40 mg Documented By: YONI Escitalopram Oxalate (Escitalopram Oxalate 10 Mg Tablet) 10 mg PO DAILY [facility] Last Admin: 08/02/22 08:01 Dose: 10 mg Documented By: KORI Gabapentin (Gabapentin 300 Mg Capsule) 300 mg PO TID [facility] Last Admin: 08/02/22 07:59 Dose: 300 mg Documented By: KORI Glucose (Glucose Gel 15 Gm Gel..Gram.) 15 gm PO Q15M PRN; Protocol PRN Reason: per Hypoglycemia Standing Ord. Piperacillin Sod/Tazobactam (Sod 3.375 gm/ Sodium Chloride) 50 mls @ 100 mls/hr IV Q6H [facility] Last Infusion: 08/02/22 09:49 Dose: 0 mls/hr Documented By: SHANTE Vancomycin HCl 750 mg/ Sodium (Chloride) 265 mls @ 265 mls/hr IV Q12H [facility] Last Infusion: 08/02/22 04:32 Dose: 0 mls/hr Documented By: YONI Doxycycline Hyclate 100 mg/ (Sodium Chloride) 250 mls @ 166.67 mls/hr IV Q12H [facility] Last Infusion: 08/02/22 05:01 Dose: 0 mls/hr Documented By: YONI Insulin Human Lispro (Insulin Lispro 100 Unit/Ml 3 Ml Vial) 0 unit SUBCUT QIDACHS [facility]; Protocol Last Admin: 08/02/22 08:02 Dose: 2 unit Documented By: KORI Lisinopril (Lisinopril 40 Mg Tablet) 40 mg PO DAILY [facility]; Protocol Last Admin: 08/02/22 08:02 Dose: 40 mg Documented By: KORI Magnesium Oxide (Magnesium Oxide 400 Mg Tablet) 400 mg PO BIDPC [facility] Last Admin: 08/02/22 09:57 Dose: 400 mg Documented By: SHANTE Melatonin (Melatonin 3 Mg Tablet) 6 mg PO BEDTIME PRN PRN Reason: Insomnia Last Admin: 08/02/22 03:26 Dose: 6 mg Documented By: YONI Methylprednisolone Sodium Succinate (Methylprednisolone Sod Succ 40 Mg/Ml Vial) 40 mg IVPUSH Q8H [facility] Last Admin: 08/02/22 08:04 Dose: 40 mg Documented By: KORI Metoclopramide HCl (Metoclopramide Hcl 10 Mg Tablet) 10 mg PO QID [facility] Last Admin: 08/02/22 07:59 Dose: 10 mg Documented By: KORI Metoprolol Succinate (Metoprolol Succinate Er 100 Mg Tab.Er.24h) 100 mg PO DAILY [facility]; Protocol Last Admin: 08/02/22 08:00 Dose: 100 mg Documented By: KORI Morphine Sulfate (Morphine Sulfate 2 Mg/Ml Cartridge) 1 mg IVPUSH Q4H PRN; Protocol PRN Reason: pain scale 4-10; sob Last Admin: 08/02/22 03:15 Dose: 1 mg Documented By: YONI Omeprazole (Omeprazole 40 Mg Capsule.Dr) 40 mg PO DAILY [facility] Last Admin: 08/02/22 08:01 Dose: 40 mg Documented By: KOIR Pharmacy Consult (Consult Rx Vancomycin Dosing) 1 each MISCELLANE DAILY PRN PRN Reason: Consult order Senna (Sennosides 8.6 Mg Tablet) 17.2 mg PO BEDTIME PRN PRN Reason: Constipation Sodium Chloride (0.9 % Sodium Chloride Flush 3 Ml Syringe) 3 ml IVFLUSH QSHIFT [facility] Last Admin: 08/02/22 08:02 Dose: 3 ml Documented By: KORI Labs CBC & Chem 7: 08/02/22 07:19 08/02/22 07:19 Labs: Laboratory Results - last 24 hr 08/01/22 08/01/22 08/01/22 14:27 14:49 21:13 MCV MCH MCHC RDW Plt Count MPV Absolute Nucleated RBC Nucleated RBC % (auto) Anion Gap Estim Creat Clear Calc Estimated GFR POC Glucose 260 H 248 H Fasting Glucose Calcium Magnesium HIV 1&2 Ab/P24 Ag 4thGn Nonreactive 08/02/22 08/02/22 08/02/22 07:19 07:19 07:37 MCV 87.3 MCH 27.8 MCHC 31.8 RDW 17.1 H Plt Count 378 MPV 10.5 Absolute Nucleated RBC 0.000 Nucleated RBC % (auto) 0.0 Anion Gap 21 H Estim Creat Clear Calc 41.3 Estimated GFR 38 POC Glucose 184 H Fasting Glucose 183 H Calcium 8.0 L Magnesium 1.3 L* HIV 1&2 Ab/P24 Ag 4thGn Microbiology Microbiology Results: Microbiology 07/31/22 21:16 Blood Culture - Preliminary Blood - Venous No growth after 24 hours. Blood Culture - Preliminary No growth after 24 hours. 07/31/22 21:16 Blood Culture - Preliminary Blood - Venous No growth after 24 hours. Assessment and Plan (1) Acute respiratory failure with hypoxia: Status: Acute Plan 47M with PMH DM, PAD, HTN, HLD, COPD, depression, presented with sob. acute hypoxic respiratory failure now on highflow 70% o2, 40L/min wean as tolerated mutlifactorial: acute on chronic diastolic chf ivc collapse on echo, creatinine increased with diuresis, likely hypo to euvolemic now, will dc diuretics echo with normal EF, restrictive pattern heatlh care associated pna with risk for MDR pathogens continue empiric vanc, zosyn, doxy follow up serologies, cultures hiv negative copd with acute decompensation steroids, bronchodilators KEVLIN likely overdiuresis, hold diuretics, acei, monitor HTN amldoipine hld statin pvd statin, asa mood disorder lexapro dvt prophylaxis - lovenox full code reason for continued hospitalization:severe hypoxia Quality Stroke Does the patient have a stroke diagnosis?: No VTE Prior VTE?: No VTE Risk Level:: Medical - moderate - high VTE Device Contraindication: Treatment Not Indicated VTE Drug Contraindication: N/A - Med Ordered
--- NOTE | 2022-08-02 10:03 | PC.NURSE ---
Patient's skin warm and pale. slightly diaphoretic. He is complaining of worsening dizziness. His morning labs showed a magnesium level of 1.3, Hospitalist prescribed magnesium 400mg PO
[2022-08-02 10:24] LABS: Adenovirus PCR Not Detected (Not Detect.); Bordetella parapertussis PCR Not Detected (Not Detect.); Bordetella pertussis PCR Not Detected (Not Detect.); Chlamydia pneumoniae PCR Not Detected (Not Detect.); Coronavirus 229E PCR Not Detected (Not Detect.); Coronavirus HKU1 PCR Not Detected (Not Detect.); Coronavirus NL63 PCR Not Detected (Not Detect.); Coronavirus OC43 PCR Not Detected (Not Detect.); Human metapneumovirus PCR Not Detected (Not Detect.); Influenza A PCR Not Detected (Not Detect.); Influenza B PCR Not Detected (Not Detect.); Mycoplasma pneumoniae PCR Not Detected (Not Detect.); Parainfluenza 1 PCR Not Detected (Not Detect.); Parainfluenza 2 PCR Not Detected (Not Detect.); Rhino/Enterovirus PCR Not Detected (Not Detect.); SARS-CoV-2 PCR Not Detected (Not Detect.)
[2022-08-02 10:25] LABS: Parainfluenza 3 PCR Not Detected (Not Detect.); Parainfluenza 4 PCR Not Detected (Not Detect.); RSV PCR Not Detected (Not Detect.)
[2022-08-02] MEDS: Albuterol Sulfate 90 MCG 8 GM INHALER 2 PUFF INHALE ×3 (11:37→19:43)
--- NOTE | 2022-08-02 11:48 | PC.NURSE ---
Patient is a bit anxious. He has been complaining of chest pain. We gave him a warm pack to put on his chest to see if this would help with pain.
--- NOTE | 2022-08-02 12:25 | P.PNCA_ITS ---
Subjective Subjective Date of Service: 08/02/22 Principal diagnosis: HCAP/Resp. Distress Interval history: Patient remained significantly hypoxic. Was diuresed yesterday and echocardiogram showed normal right atrial pressures. LV diastolic function is restrictive but filling pressures are not significantly elevated. His hypoxia is out of proportion to possible congestive heart failure. However he says his shortness of breath is improved. Review of Systems Constitutional: Reports no additional constitutional complaints Cardiovascular: Reports dyspnea Respiratory: Reports dyspnea Gastrointestinal: Reports no additional gastrointestinal complaints Skin/Breast: Reports system reviewed and no additional complaints, except as docu Reports system reviewed and no additional complaints, except as documented Psychiatric: Reports no additional psychiatric complaints Physical Exam Vital Signs: Last Vital Signs Temp 98.1 F 08/02/22 10: Pulse 73 08/02/22 10:23 Resp 25 H 08/02/22 10:23 BP 120/69 08/02/22 10:23 Pulse Ox 94 08/02/22 10:23 O2 Del Method 08/02/22 10:23 O2 Flow Rate 40 08/02/22 10:23 FiO2 70 08/02/22 10:23 Oxygen Flow Rate 15 07/31/22 22:42 BMI result Body Mass Index 25.2 Const General: cooperative, alert, in distress mild and respiratory and anxious Nutritional Appearance: overweight Orientation/consciousness: patient oriented x3 Limitations: no limitations Neck Neck: Yes trachea midline, Yes supple and Yes no JVD Resp Effort & Inspection: normal respiratory effort Auscultation: crackles (Coarse) on the right at the base, no rhonchi, no wheezes and diminished lung sounds Cardio Palpation: normal PMI Rate: regular rate Rhythm: regular rhythm Heart sounds: S1 normal heart sound present, S2 normal heart sound present, no c lick, no gallops, no murmurs and no rubs GI Inspection: Yes obesity Auscultation: normal bowel sounds Skin General skin exam: no rashes or lesions noted Neuro General: patient oriented x3 and no focal motor deficits Extrem General: No clubbing, No cyanosis and Yes edema Psych Appearance: grossly normal Objective Labs and Meds Result diagrams: 08/02/22 07:19 08/02/22 07:19 Lab results: Laboratory Results - last 24 hr 08/01/22 08/01/22 08/01/22 14:27 14:49 21:13 WBC RBC Hgb Hct MCV MCH MCHC RDW Plt Count MPV Absolute Nucleated RBC Nucleated RBC % (auto) Sodium Potassium Chloride Carbon Dioxide Anion Gap BUN Creatinine Estim Creat Clear Calc Estimated GFR POC Glucose 260 H 248 H Fasting Glucose Calcium Magnesium Respiratory Panel [facility] Adenovirus (Rapid PCR) B.pert (TEM-PCR) B.parapertussis DNA PCR C. pneumoniae DNA (PCR) Coronavirus OC43 (PCR) Coronavirus HKU1 (PCR) Coronavirus 229E (PCR) Coronavirus NL63 (PCR) HIV 1&2 Ab/P24 Ag 4thGn Nonreactive Human Metapneumovir PCR Influenza A (RT-PCR) Influenza B (RT-PCR) M. pneumoniae (PCR) Parainfluenza 1 (PCR) Parainfluenza 2 (PCR) Parainfluenza 3 (PCR) Parainfluenza 4 (PCR) RSV (PCR) Entero/Rhino (PCR) SARS-CoV-2 RNA (RT-PCR) 08/02/22 08/02/22 08/02/22 07:19 07:19 07:37 WBC 15.6 H RBC 3.31 L Hgb 9.2 L Hct 28.9 L MCV 87.3 MCH 27.8 MCHC 31.8 RDW 17.1 H Plt Count 378 MPV 10.5 Absolute Nucleated RBC 0.000 Nucleated RBC % (auto) 0.0 Sodium 143 Potassium 4.7 Chloride 109 H Carbon Dioxide 18 L Anion Gap 21 H BUN 23 H Creatinine 1.90 H Estim Creat Clear Calc 41.3 Estimated GFR 38 POC Glucose 184 H Fasting Glucose 183 H Calcium 8.0 L Magnesium 1.3 L* Respiratory Panel [place] Adenovirus (Rapid PCR) B.pert (TEM-PCR) B.parapertussis DNA PCR C. pneumoniae DNA (PCR) Coronavirus OC43 (PCR) Coronavirus HKU1 (PCR) Coronavirus 229E (PCR) Coronavirus NL63 (PCR) HIV 1&2 Ab/P24 Ag 4thGn Human Metapneumovir PCR Influenza A (RT-PCR) Influenza B (RT-PCR) M. pneumoniae (PCR) Parainfluenza 1 (PCR) Parainfluenza 2 (PCR) Parainfluenza 3 (PCR) Parainfluenza 4 (PCR) RSV (PCR) Entero/Rhino (PCR) SARS-CoV-2 RNA (RT-PCR) 08/02/22 08:16 WBC RBC Hgb Hct MCV MCH MCHC RDW Plt Count MPV Absolute Nucleated RBC Nucleated RBC % (auto) Sodium Potassium Chloride Carbon Dioxide Anion Gap BUN Creatinine Estim Creat Clear Calc Estimated GFR POC Glucose Fasting Glucose Calcium Magnesium Respiratory Panel Mckeon See Note Adenovirus (Rapid PCR) Not Detected B.pert (TEM-PCR) Not Detected B.parapertussis DNA PCR Not Detected C. pneumoniae DNA (PCR) Not Detected Coronavirus OC43 (PCR) Not Detected Coronavirus HKU1 (PCR) Not Detected Coronavirus 229E (PCR) Not Detected Coronavirus NL63 (PCR) Not Detected HIV 1&2 Ab/P24 Ag 4thGn Human Metapneumovir PCR Not Detected Influenza A (RT-PCR) Not Detected Influenza B (RT-PCR) Not Detected M. pneumoniae (PCR) Not Detected Parainfluenza 1 (PCR) Not Detected Parainfluenza 2 (PCR) Not Detected Parainfluenza 3 (PCR) Not Detected Parainfluenza 4 (PCR) Not Detected RSV (PCR) Not Detected Entero/Rhino (PCR) Not Detected SARS-CoV-2 RNA (RT-PCR) Not Detected Progress Note: A&P Assessment and plan (1) Acute respiratory failure with hypoxia: Status: Acute Assessment and Plan: Acute respiratory failure with hypoxemia which is difficult to correct. Out of proportion to any presence of heart failure. Clinically does appear to be in overt heart failure. I do not think he requires further diuresis. However there is a clinical dilemma can consider right heart catheterization to evaluate for hemodynamics and LV filling pressures. Continue to manage from pulmonary perspective. Possible early ARDS. Will sign of the case at this point time. Thank you for allowing me to partake in his care Time Spent With Patient Time: Total time spent is greater than 50% in coordination of care (as documented) at patient's floor/unit and/or counseling patient: Progress Note: Quality Stroke Does the patient have a stroke diagnosis?: No Procedures Date of Service Date of Service: 08/02/22
[2022-08-02 12:58] LABS: Glucose, Whole Blood 231 mg/dL (60-115)
[2022-08-02 13:57] LABS: Vancomycin Trough 22.8 mcg/mL (10.0-20.0)
--- NOTE | 2022-08-02 14:08 | HE.PHANOTE ---
Vancomycin Dosing Addendum Trough supratherpatuic at 22.6. Renal function worsened, SCr nearly doubled. Will hold dose due 08/02 @ 1500. Random level scheduled for 08/03 @ 0600. Will most likely restart patient on vancomcyin 1000 mg Q24H depending on level. Pharmacy will monitor renal function daily. Breann Lamb, PharmD
[2022-08-02] MEDS: Nicotine 21 MG PATCH.TD24 TRANSDERMA (15:03)
[2022-08-02 18:22] LABS: Glucose, Whole Blood 379 mg/dL (60-115)
[2022-08-02 20:44] LABS: Glucose, Whole Blood 418 mg/dL (60-115)
[2022-08-02] MEDS: Enoxaparin Sodium 40 MG/0.4 ML SYRINGE SUBCUT (21:30)
[2022-08-02] MEDS: Insulin Lispro 100 UNIT/ML 3 ML VIAL 15 UNIT SUBCUT (21:31)
[2022-08-03] VITALS (13 sets, daily range): BP systolic 159–174; BP diastolic 86–94; PULSE 86–96; RESP 18–22; TEMP 36.4–37.1; O2SAT 88–96
[2022-08-03] MEDS: Piperacillin Sodium/Tazobactam 3.375 GM in 0.9 % Sodium Chloride 50 ML IV ×4 (02:36→22:15)
[2022-08-03] MEDS: Doxycycline Hyclate 100 MG in 0.9 % Sodium Chloride 250 ML 166.67 MG IV ×2 (03:45→16:40)
[2022-08-03] MEDS: Albuterol Sulfate 90 MCG 8 GM INHALER 2 PUFF INHALE ×4 (04:58→23:18)
[2022-08-03] MEDS: oxyCODONE HCl Immed Release 5 MG TABLET PO (05:18)
[2022-08-03] MEDS: Albuterol/Iprat 2.5/0.5MG 3 ML AMPUL.NEB INHALE (06:46)
[2022-08-03 07:10] LABS: Hematocrit 28.8 % (42.0-52.0); Hemoglobin 9.6 g/dl (14.0-18.0); Mean Corpuscular HGB Conc 33.3 g/dl (31.0-36.0); Mean Corpuscular Hemoglobin 28.1 pg (27.0-33.0); Mean Corpuscular Volume 84.2 fL (80.0-98.0); Mean Platelet Volume 10.3 fL (9.4-12.4); Platelet Count 432 X10*3/uL (160-400); Red Blood Count 3.42 X10*6/uL (4.60-5.80); Red Cell Distribution Width 16.4 % (11.0-16.0); White Blood Count 19.9 X10*3/uL (4.8-10.8)
[2022-08-03 07:30] LABS: Vancomycin Random 10.6 mcg/mL (15-20)
[2022-08-03 07:30] LABS: Glucose, Whole Blood 257 mg/dL (60-115)
[2022-08-03 07:37] LABS: Anion Gap 20 (12-20); Blood Urea Nitrogen 25 mg/dL (9-16); Calcium 8.2 mg/dL (8.4-10.2); Carbon Dioxide 19 mmol/L (22-29); Chloride 104 mmol/L (96-108); Creatinine Clr Calc Pharmacy 43.4; Estimated Glomerular Filt Rate 40; Glucose Fasting 335 mg/dL (60-99); Magnesium 1.4 mg/dL (1.6-2.6); Potassium 4.7 mmol/L (3.3-5.1); Sodium 138 mmol/L (135-145)
[2022-08-03] MEDS: Morphine Sulfate 2 MG/ML CARTRIDGE 1 MG IVPUSH ×4 (08:19→22:35)
--- NOTE | 2022-08-03 08:23 | HE.PHANOTE ---
Vancomycin Dosing Addendum Level 10.6 today after being subraptheraputic last night. Last night dose was held. Will restart patient on 1000 mg Q24H instead of q12H. Next random level tomorrow 08/04 @ 0600. Pharmacy to continue to monitor renal function. Breann Lamb, PharmD
[2022-08-03] MEDS: 0.9 % Sodium Chloride Flush 3 ML SYRINGE IVFLUSH ×2 (08:25→16:48)
[2022-08-03] MEDS: methylPREDNISolone Sod Succ 40 MG/ML VIAL IVPUSH (08:26)
[2022-08-03] MEDS: Insulin Lispro 100 UNIT/ML 3 ML VIAL SUBCUT ×4 (08:26→22:14)
[2022-08-03] MEDS: Omeprazole 40 MG CAPSULE.DR PO (08:27)
[2022-08-03] MEDS: Atorvastatin Calcium 40 MG TABLET PO (08:27)
[2022-08-03] MEDS: Metoclopramide HCl 10 MG TABLET PO ×4 (08:27→22:14)
[2022-08-03] MEDS: Metoprolol Succinate ER 100 MG TAB.ER.24H PO (08:27)
[2022-08-03] MEDS: Gabapentin 300 MG CAPSULE PO ×3 (08:27→22:14)
[2022-08-03] MEDS: Aspirin Enteric Coated 81 MG TABLET.DR PO (08:27)
[2022-08-03] MEDS: Escitalopram Oxalate 10 MG TABLET PO (08:27)
[2022-08-03] MEDS: Magnesium Oxide 400 MG TABLET PO ×2 (08:27→16:48)
[2022-08-03] MEDS: Nicotine 21 MG PATCH.TD24 TRANSDERMA (08:28)
--- NOTE | 2022-08-03 09:12 | P.PNPL_ITS ---
Subjective Subjective Date of Service: 08/03/22 Principal diagnosis: HCAP/Resp. Distress Interval history: This gentleman is getting better, afebrile, mild to moderate cough, no respiratory distress, O2 requirement is much less. He is sitting up in chair , with O2 by nasal cannula at 10 L/minute. Objective Data Labs CBC & Chem 7: 08/03/22 06:10 08/03/22 06:10 Labs: Laboratory Results - last 24 hr 08/01/22 08/02/22 08/02/22 14:49 08:16 12:50 WBC RBC Hgb Hct MCV MCH MCHC RDW Plt Count MPV Absolute Nucleated RBC Nucleated RBC % (auto) Sodium Potassium Chloride Carbon Dioxide Anion Gap BUN Creatinine Estim Creat Clear Calc Estimated GFR POC Glucose 231 H Fasting Glucose Calcium Magnesium Vancomycin Trough Random Vancomycin Respiratory Panel Mckeon See Note Adenovirus (Rapid PCR) Not Detected B.pert (TEM-PCR) Not Detected B.parapertussis DNA PCR Not Detected C. pneumoniae DNA (PCR) Not Detected Coronavirus OC43 (PCR) Not Detected Coronavirus HKU1 (PCR) Not Detected Coronavirus 229E (PCR) Not Detected Coronavirus NL63 (PCR) Not Detected HIV 1&2 Ab/P24 Ag 4thGn Nonreactive Human Metapneumovir PCR Not Detected Influenza A (RT-PCR) Not Detected Influenza B (RT-PCR) Not Detected M. pneumoniae (PCR) Not Detected Parainfluenza 1 (PCR) Not Detected Parainfluenza 2 (PCR) Not Detected Parainfluenza 3 (PCR) Not Detected Parainfluenza 4 (PCR) Not Detected RSV (PCR) Not Detected Entero/Rhino (PCR) Not Detected SARS-CoV-2 RNA (RT-PCR) Not Detected 08/02/22 08/02/22 08/02/22 13:04 18:17 20:38 WBC RBC Hgb Hct MCV MCH MCHC RDW Plt Count MPV Absolute Nucleated RBC Nucleated RBC % (auto) Sodium Potassium Chloride Carbon Dioxide Anion Gap BUN Creatinine Estim Creat Clear Calc Estimated GFR POC Glucose 379 H* 418 H* Fasting Glucose Calcium Magnesium Vancomycin Trough 22.8 H Random Vancomycin Respiratory Panel Mckeon Adenovirus (Rapid PCR) B.pert (TEM-PCR) B.parapertussis DNA PCR C. pneumoniae DNA (PCR) Coronavirus OC43 (PCR) Coronavirus HKU1 (PCR) Coronavirus 229E (PCR) Coronavirus NL63 (PCR) HIV 1&2 Ab/P24 Ag 4thGn Human Metapneumovir PCR Influenza A (RT-PCR) Influenza B (RT-PCR) M. pneumoniae (PCR) Parainfluenza 1 (PCR) Parainfluenza 2 (PCR) Parainfluenza 3 (PCR) Parainfluenza 4 (PCR) RSV (PCR) Entero/Rhino (PCR) SARS-CoV-2 RNA (RT-PCR) 08/03/22 08/03/22 08/03/22 06:10 06:10 06:10 WBC 19.9 H RBC 3.42 L Hgb 9.6 L Hct 28.8 L MCV 84.2 MCH 28.1 MCHC 33.3 RDW 16.4 H Plt Count 432 H MPV 10.3 Absolute Nucleated RBC 0.000 Nucleated RBC % (auto) 0.0 Sodium 138 Potassium 4.7 Chloride 104 Carbon Dioxide 19 L Anion Gap 20 BUN 25 H Creatinine 1.81 H Estim Creat Clear Calc 43.4 Estimated GFR 40 POC Glucose Fasting Glucose 335 H D Calcium 8.2 L Magnesium 1.4 L* Vancomycin Trough Random Vancomycin 10.6 L Respiratory Panel Mckeon Adenovirus (Rapid PCR) B.pert (TEM-PCR) B.parapertussis DNA PCR C. pneumoniae DNA (PCR) Coronavirus OC43 (PCR) Coronavirus HKU1 (PCR) Coronavirus 229E (PCR) Coronavirus NL63 (PCR) HIV 1&2 Ab/P24 Ag 4thGn Human Metapneumovir PCR Influenza A (RT-PCR) Influenza B (RT-PCR) M. pneumoniae (PCR) Parainfluenza 1 (PCR) Parainfluenza 2 (PCR) Parainfluenza 3 (PCR) Parainfluenza 4 (PCR) RSV (PCR) Entero/Rhino (PCR) SARS-CoV-2 RNA (RT-PCR) 08/03/22 07:26 WBC RBC Hgb Hct MCV MCH MCHC RDW Plt Count MPV Absolute Nucleated RBC Nucleated RBC % (auto) Sodium Potassium Chloride Carbon Dioxide Anion Gap BUN Creatinine Estim Creat Clear Calc Estimated GFR POC Glucose 257 H Fasting Glucose Calcium Magnesium Vancomycin Trough Random Vancomycin Respiratory Panel Mckeon Adenovirus (Rapid PCR) B.pert (TEM-PCR) B.parapertussis DNA PCR C. pneumoniae DNA (PCR) Coronavirus OC43 (PCR) Coronavirus HKU1 (PCR) Coronavirus 229E (PCR) Coronavirus NL63 (PCR) HIV 1&2 Ab/P24 Ag 4thGn Human Metapneumovir PCR Influenza A (RT-PCR) Influenza B (RT-PCR) M. pneumoniae (PCR) Parainfluenza 1 (PCR) Parainfluenza 2 (PCR) Parainfluenza 3 (PCR) Parainfluenza 4 (PCR) RSV (PCR) Entero/Rhino (PCR) SARS-CoV-2 RNA (RT-PCR) Microbiology Microbiology Results: Microbiology 07/31/22 21:16 Blood - Venous Blood Culture - Preliminary No growth after 48 hours. 07/31/22 21:16 Blood - Venous Blood Culture - Preliminary No growth after 48 hours. 07/31/22 21:16 Blood - Venous Blood Culture - Preliminary No growth after 48 hours. Review of Systems Review of Systems Yes all other systems are reviewed and are negative Eyes: Reports no additional eye complaints Reports system reviewed and no additional complaints, except as documented Cardiovascular: Denies chest pain, Denies irregular heart rhythm and Denies leg edema Respiratory: Reports as per HPI Gastrointestinal: Reports no additional gastrointestinal complaints and Reports heartburn (Being treated with omeprazole) Genitourinary: Reports no additional male genitourinary complaints Musculoskeletal: Reports no additional musculoskeletal complaints Reports system reviewed and no additional complaints, except as documented Psychiatric: Reports anxiety and Reports depression Endocrine: Reports other (Being treated for diabetes mellitus) Hematologic/Lymphatic: Reports no additional hematologic/lymphatic complaints Allergic/Immunologic: Reports no additional allergic/immunologic complaints Physical Exam Vital Signs: Vital Signs: Last Vital Signs Temp 97.5 F 08/03/22 07:28 Pulse 96 08/03/22 07:28 Resp 18 08/03/22 07:28 BP 174/86 H 08/03/22 07:28 Pulse Ox 96 08/03/22 07:28 O2 Del Method 08/03/22 07:28 O2 Flow Rate 10 08/03/22 07:28 FiO2 70 08/02/22 10:23 Oxygen Flow Rate 15 07/31/22 22:42 BMI result Body Mass Index 25.2 Const: General: comfortable (Moderately short of breath and somewhat anxious), no acute distress, alert and awake Orientation/consciousness: patient oriented x3 HEENT: Head: Yes normal to inspection General nose exam: No nasal polyps present and No nasal discharge present Face and sinus: Yes sinuses nontender Mouth: oropharynx abnormals (Oropharynx is narrow, Mallampati class 4) Throat: Yes posterior oropharynx normal Eyes: General: appearance normal, both eyes and all related structures Neck: Neck: Yes normal visual inspection, Yes no lymphadenopathy, Yes trachea midline, Yes no JVD and Yes other (Neck is short and obese) Thyroid: Thyroid normal Chest: Chest palpation & inspection: normal inspection of the chest, normal palpation of entire chest wall and no tenderness Resp: Other: Percussion note resonant, breath sounds are distant and much decreased over the lower lobes. Inspiratory crepitations heard over both lower lobes. No wheezes are heard. Cardio: Palpation: normal PMI Rate: regular rate Rhythm: regular rhythm Heart sounds: no gallops and no murmurs Peripheral pulses: Peripheral pulses 2+ throughout GI: Palpation (GI): Soft to palpation, nontender, No hepatosplenomegaly present and no masses Auscultation: normal bowel sounds Back/Spine/Pelvis: Other: Not examine Thoracic/Lumbar Spine: thoracic and lumbar spine normal to inspection Skin: General skin exam: no rashes or lesions noted Neuro: Other: Patient in the bed, full neurologic examination not performed. General: patient oriented x3 and no focal motor deficits Cranial nerves: Yes CN's II-XII intact bilaterally Extrem: General: Yes normal to inspection, Yes no clubbing, cyanosis or edema and Yes no calf tenderness Psych: Speech and movement: Normal speech and movement present Affect: Anxious affect present Procedures Date of Service Date of Service: 08/03/22 Assessment and Plan Assessment and plan (1) Pneumonia: Status: Acute (2) Acute respiratory failure with hypoxia: Status: Acute (3) YARELIS (obstructive sleep apnea): Status: Acute Assessment and Plan: This gentleman is recovering from multilobar bilateral pneumonia( HCAP ) Repeat chest x-ray today, Continue present antibiotic regimen. May wean off IV Solu-Medrol, and start on prednisone 40 mg daily for the next 5 days. Continue to wean down, O2 flow. This gentleman has obstructive sleep apnea, recently diagnosed, and he had a CPAP titration study at [facility]. He was support to be started on is CPAP therapy. He follows up with Dr. Machado , and after discharge he will contact him for further instructions Time Spent With Patient Time: Total time spent is greater than 50% in coordination of care (as documented) at patient's floor/unit and/or counseling patient: Progress Note: Quality Stroke Does the patient have a stroke diagnosis?: No
[2022-08-03] MEDS: vancomycin HCL 1,000 MG in 0.9 % Sodium Chloride 250 ML 270 MG IV (10:06)
[2022-08-03 11:22] LABS: Glucose, Whole Blood 334 mg/dL (60-115)
[2022-08-03] MEDS: Magnesium Sulfate/H2O 2 GM/50 ML PIGGYBACK IV (12:21)
--- NOTE | 2022-08-03 13:07 | MHC.CM.PN ---
Per ROUNDS discussion, Patient is not yet medically cleared for dc (IV Doxycycline, IV Solu Medrol, IV Morphine, IV Zosyn, IV Vanco); Home is the goal and CM will continue to follow.
--- NOTE | 2022-08-03 13:26 | P.PNIM_ITS ---
Subjective Subjective Date of Service: 08/03/22 Interval History: the patient was seen and evaluated this morning Laying in bed, feels much better ready Decreased oxygen supplement to 5 L nasal cannula Denies any fever, chills but reports shortness of breath with minimal exertion No reported other overnight events. Systemic review: No fever, chills or weakness No chest pain, palpitation dyspnea with exertion No abdominal pain, nausea or vomiting No urinary symptoms No any rash or wounds Physical Exam Vital Signs: Vital Signs: Last Vital Signs Temp 98.4 F 08/03/22 11:03 Pulse 90 08/03/22 11:54 Resp 20 08/03/22 11:54 BP 171/94 H 08/03/22 11:03 Pulse Ox 91 L 08/03/22 11:03 O2 Del Method 08/03/22 11:03 O2 Flow Rate 10 08/03/22 11:03 FiO2 70 08/02/22 10:23 Oxygen Flow Rate 15 07/31/22 22:42 BMI result Body Mass Index 25.2 Const: Other: Constitutional : Alert, oriented, not in distress Neck : Normal inspection, Supple Cardiovascular : RRR, no JVP, no lower extremity edema Respiratory : decreased basal bilateral air entry, basal bilateral crackles, no wheezes, on oxygen supplement Gastrointestinal: soft, lax, Normal bowel sounds, Non tender Skin : Warm, Dry Neurological : Alert & oriented x3, No focal deficit Objective Data Active Medications Acetaminophen (Acetaminophen 325 Mg Tablet) 650 mg PO Q6H PRN PRN Reason: Pain, Mild (Pain Scale 1-3) Last Admin: 08/02/22 09:56 Dose: 650 mg Documented By: SHANTE Albuterol Sulfate (Albuterol Sulfate 90 Mcg 8 Gm Inhaler) 2 puff INHALE Q6H [facility] Last Admin: 08/03/22 11:53 Dose: 2 puff Documented By: ANN Albuterol/Ipratropium (Albuterol/Iprat 2.5/0.5mg 3 Ml Ampul.Neb) 3 ml INHALE RQ4H PRN PRN Reason: Shortness of Breath/Wheezing Last Admin: 08/03/22 06:46 Dose: 3 ml Documented By: SANJEEV Aspirin (Aspirin Enteric Coated 81 Mg Tablet.) 81 mg PO DAILY [facility] Last Admin: 08/03/22 08:27 Dose: 81 mg Documented By: BENJIE Atorvastatin Calcium (Atorvastatin Calcium 40 Mg Tablet) 40 mg PO DAILY [facility] Last Admin: 08/03/22 08:27 Dose: 40 mg Documented By: BENJIE Dextrose (Dextrose 50 % 25 Gm/50 Ml Syringe) 25 gm IVPUSH Q15M PRN; Protocol PRN Reason: per Hypoglycemia Standing Ord. Enoxaparin Sodium (Enoxaparin Sodium 40 Mg/0.4 Ml Syringe) 40 mg SUBCUT BEDTIME [facility] Last Admin: 08/02/22 21:30 Dose: 40 mg Documented By: GLENNY Escitalopram Oxalate (Escitalopram Oxalate 10 Mg Tablet) 10 mg PO DAILY [facility] Last Admin: 08/03/22 08:27 Dose: 10 mg Documented By: BENJIE Gabapentin (Gabapentin 300 Mg Capsule) 300 mg PO TID [facility] Last Admin: 08/03/22 08:27 Dose: 300 mg Documented By: BENJIE Glucose (Glucose Gel 15 Gm Gel..Gram.) 15 gm PO Q15M PRN; Protocol PRN Reason: per Hypoglycemia Standing Ord. Piperacillin Sod/Tazobactam (Sod 3.375 gm/ Sodium Chloride) 50 mls @ 100 mls/hr IV Q6H [facility] Last Infusion: 08/03/22 10:50 Dose: 0 mls/hr Documented By: BENJIE Doxycycline Hyclate 100 mg/ (Sodium Chloride) 250 mls @ 166.67 mls/hr IV Q12H [facility] Last Infusion: 08/03/22 05:20 Dose: 166.67 mls/hr Documented By: JESUS Vancomycin HCl 1,000 mg/ (Sodium Chloride) 270 mls @ 270 mls/hr IV Q24H [facility] Last Infusion: 08/03/22 11:58 Dose: 0 mls/hr Documented By: BENJIE Insulin Human Lispro (Insulin Lispro 100 Unit/Ml 3 Ml Vial) 0 unit SUBCUT QIDACHS [facility]; Protocol Last Admin: 08/03/22 11:59 Dose: 8 unit Documented By: BENJIE Magnesium Oxide (Magnesium Oxide 400 Mg Tablet) 400 mg PO BIDPC [facility] Last Admin: 08/03/22 08:27 Dose: 400 mg Documented By: BENJIE Melatonin (Melatonin 3 Mg Tablet) 6 mg PO BEDTIME PRN PRN Reason: Insomnia Last Admin: 08/02/22 22:59 Dose: 6 mg Documented By: GLENNY Methylprednisolone Sodium Succinate (Methylprednisolone Sod Succ 40 Mg/Ml Vial) 40 mg IVPUSH Q24H [facility] Metoclopramide HCl (Metoclopramide Hcl 10 Mg Tablet) 10 mg PO QID [facility] Last Admin: 08/03/22 12:28 Dose: 10 mg Documented By: BENJIE Metoprolol Succinate (Metoprolol Succinate Er 100 Mg Tab.Er.24h) 100 mg PO DAILY [facility]; Protocol Last Admin: 08/03/22 08:27 Dose: 100 mg Documented By: BENJIE Morphine Sulfate (Morphine Sulfate 2 Mg/Ml Cartridge) 1 mg IVPUSH Q4H PRN; Protocol PRN Reason: pain scale 4-10; sob Last Admin: 08/03/22 12:28 Dose: 1 mg Documented By: BENJIE Nicotine (Nicotine 21 Mg Patch.Td24) 21 mg TRANSDERMA DAILY [facility] Last Admin: 08/03/22 08:28 Dose: 21 mg Documented By: BENJIE Omeprazole (Omeprazole 40 Mg Capsule.Dr) 40 mg PO DAILY [facility] Last Admin: 08/03/22 08:27 Dose: 40 mg Documented By: BENJIE Pharmacy Consult (Consult Rx Vancomycin Dosing) 1 each MISCELLANE DAILY PRN PRN Reason: Consult order Senna (Sennosides 8.6 Mg Tablet) 17.2 mg PO BEDTIME PRN PRN Reason: Constipation Sodium Chloride (0.9 % Sodium Chloride Flush 3 Ml Syringe) 3 ml IVFLUSH QSHIFT [facility] Last Admin: 08/03/22 08:25 Dose: 3 ml Documented By: BENJIE Labs CBC & Chem 7: 08/03/22 06:10 08/03/22 06:10 Labs: Laboratory Results - last 24 hr 08/02/22 08/02/22 08/02/22 13:04 18:17 20:38 MCV MCH MCHC RDW Plt Count MPV Absolute Nucleated RBC Nucleated RBC % (auto) Anion Gap Estim Creat Clear Calc Estimated GFR POC Glucose 379 H* 418 H* Fasting Glucose Calcium Magnesium Vancomycin Trough 22.8 H Random Vancomycin 08/03/22 08/03/22 08/03/22 06:10 06:10 06:10 MCV 84.2 MCH 28.1 MCHC 33.3 RDW 16.4 H Plt Count 432 H MPV 10.3 Absolute Nucleated RBC 0.000 Nucleated RBC % (auto) 0.0 Anion Gap 20 Estim Creat Clear Calc 43.4 Estimated GFR 40 POC Glucose Fasting Glucose 335 H D Calcium 8.2 L Magnesium 1.4 L* Vancomycin Trough Random Vancomycin 10.6 L 08/03/22 08/03/22 07:26 11:01 MCV MCH MCHC RDW Plt Count MPV Absolute Nucleated RBC Nucleated RBC % (auto) Anion Gap Estim Creat Clear Calc Estimated GFR POC Glucose 257 H 334 H Fasting Glucose Calcium Magnesium Vancomycin Trough Random Vancomycin Microbiology Microbiology Results: Microbiology 07/31/22 21:16 Blood Culture - Preliminary Blood - Venous No growth after 48 hours. Blood Culture - Preliminary No growth after 48 hours. 07/31/22 21:16 Blood Culture - Preliminary Blood - Venous No growth after 48 hours. Assessment and Plan (1) Acute respiratory failure with hypoxia: Status: Acute (2) Pneumonia: Status: Acute (3) Congestive heart failure: Status: Acute Plan 47M with PMH DM, PAD, HTN, HLD, COPD, depression, presented with sob. This gentleman has obstructive sleep apnea, recently diagnosed, and he had a CPAP titration study at [facility]. He was support to be started on is CPAP therapy. He follows up with Dr. Machado? , and after discharge he will contact him for further instructions acute hypoxic respiratory failure secondary to multilobar pneumonia, YARELIS, CHF On nasal cannula 5 L wean as tolerated repeat CXR today acute on chronic diastolic chf, resolved ivc collapse on echo, creatinine increased with diuresis, likely hypo to euvolemic now, will dc diuretics echo with normal EF, restrictive pattern heatlh care associated pneumonia with risk for MDR pathogens continue empiric vanc, zosyn, doxy pending final serologies, cultures hiv negative id input appreciated, consider DC on doxycycline at discharge copd with acute decompensation Improving steroids, bronchodilators KELVIN likely overdiuresis, hold diuretics, acei, monitor HTN amldoipine hld statin pvd statin, asa mood disorder lexapro dvt prophylaxis - lovenox full code reason for continued hospitalization:severe hypoxiaRequiring oxygen supplement, treatment for pneumonia with IV antibiotics to prevent possible sepsis and hypoxic failure. Quality Stroke Does the patient have a stroke diagnosis?: No VTE Prior VTE?: No VTE Risk Level:: Medical - moderate - high VTE Device Contraindication: Treatment Not Indicated VTE Drug Contraindication: N/A - Med Ordered
[2022-08-03 16:19] LABS: Glucose, Whole Blood 345 mg/dL (60-115)
[2022-08-03 20:28] LABS: Glucose, Whole Blood 297 mg/dL (60-115)
[2022-08-03] MEDS: traZODone HCL 50 MG TABLET PO (22:14)
[2022-08-03] MEDS: Enoxaparin Sodium 40 MG/0.4 ML SYRINGE SUBCUT (22:14)
[2022-08-03] MEDS: Sennosides 8.6 MG TABLET 17.2 MG PO (22:35)
[2022-08-04] VITALS (11 sets, daily range): BP systolic 158–187; BP diastolic 76–90; PULSE 83–96; RESP 15–22; TEMP 36.7–37.1; O2SAT 81–93
[2022-08-04] MEDS: hydrOXYzine HCL 25 MG TABLET PO (00:52)
[2022-08-04] MEDS: Piperacillin Sodium/Tazobactam 3.375 GM in 0.9 % Sodium Chloride 50 ML IV ×4 (00:58→22:49)
[2022-08-04] MEDS: 0.9 % Sodium Chloride Flush 3 ML SYRINGE IVFLUSH ×4 (02:12→20:41)
[2022-08-04] MEDS: Doxycycline Hyclate 100 MG in 0.9 % Sodium Chloride 250 ML 166.67 MG IV ×2 (02:12→14:57)
[2022-08-04] MEDS: Albuterol/Iprat 2.5/0.5MG 3 ML AMPUL.NEB INHALE ×3 (04:16→19:12)
[2022-08-04] MEDS: Albuterol Sulfate 90 MCG 8 GM INHALER 2 PUFF INHALE (04:18)
[2022-08-04] MEDS: Furosemide 40 MG/4 ML VIAL IVPUSH (04:36)
[2022-08-04] MEDS: Morphine Sulfate 2 MG/ML CARTRIDGE 1 MG IVPUSH (05:17)
[2022-08-04 05:26] LABS: B Type Natriuretic Peptide 621 pg/mL (<100)
--- NOTE | 2022-08-04 07:01 | PM.EVENT ---
Event Note Date of Service: 08/04/22 Event Note: pt noted to have increased O2 requirements. BNP pending. Chest xray shows improvement from previous follow bnp.
[2022-08-04 07:02] LABS: Hematocrit 30.2 % (42.0-52.0); Hemoglobin 9.8 g/dl (14.0-18.0); Mean Corpuscular HGB Conc 32.5 g/dl (31.0-36.0); Mean Corpuscular Hemoglobin 27.6 pg (27.0-33.0); Mean Corpuscular Volume 85.1 fL (80.0-98.0); Mean Platelet Volume 10.3 fL (9.4-12.4); Platelet Count 454 X10*3/uL (160-400); Red Blood Count 3.55 X10*6/uL (4.60-5.80); Red Cell Distribution Width 16.7 % (11.0-16.0); White Blood Count 17.9 X10*3/uL (4.8-10.8)
[2022-08-04 07:19] LABS: B Type Natriuretic Peptide 523 pg/mL (<100)
[2022-08-04 07:27] LABS: Glucose, Whole Blood 218 mg/dL (60-115)
[2022-08-04 07:30] LABS: Anion Gap 17 (12-20); Blood Urea Nitrogen 25 mg/dL (9-16); Calcium 8.6 mg/dL (8.4-10.2); Carbon Dioxide 22 mmol/L (22-29); Chloride 107 mmol/L (96-108); Creatinine Clr Calc Pharmacy 46.4; Estimated Glomerular Filt Rate 44; Glucose Random 226 mg/dL (60-115); Potassium 4.2 mmol/L (3.3-5.1); Sodium 142 mmol/L (135-145)
[2022-08-04 07:32] LABS: Creatinine Clr Calc Pharmacy 48.2; Estimated Glomerular Filt Rate 45
[2022-08-04] MEDS: Escitalopram Oxalate 10 MG TABLET PO (08:13)
[2022-08-04] MEDS: Metoprolol Succinate ER 100 MG TAB.ER.24H PO (08:13)
[2022-08-04] MEDS: Omeprazole 40 MG CAPSULE.DR PO (08:13)
[2022-08-04] MEDS: Gabapentin 300 MG CAPSULE PO ×3 (08:13→20:34)
[2022-08-04] MEDS: Magnesium Oxide 400 MG TABLET PO ×2 (08:13→17:21)
[2022-08-04] MEDS: predniSONE 20 MG TABLET 40 MG PO (08:14)
[2022-08-04] MEDS: Metoclopramide HCl 10 MG TABLET PO ×4 (08:14→20:34)
[2022-08-04] MEDS: Atorvastatin Calcium 40 MG TABLET PO (08:14)
[2022-08-04] MEDS: Insulin Lispro 100 UNIT/ML 3 ML VIAL SUBCUT ×4 (08:14→20:34)
[2022-08-04] MEDS: Aspirin Enteric Coated 81 MG TABLET.DR PO (08:14)
[2022-08-04] MEDS: Nicotine 21 MG PATCH.TD24 TRANSDERMA (08:15)
--- NOTE | 2022-08-04 08:31 | HE.PHANOTE ---
Vancomycin Dosing Addendum Level is 12 today. Renal function is unchange from yesterday. Continue current regimen vancomycin 1000 mg Q24H. Expected AUC 458 with a trough 12.8. Next trough to be drawn 08/06 @ 0600. Pharmacy will continue to monitor renal function daily to adjust if any improvement. Breann Lamb, PharmD
[2022-08-04] MEDS: vancomycin HCL 1,000 MG in 0.9 % Sodium Chloride 250 ML 270 MG IV (09:37)
[2022-08-04 11:30] LABS: Glucose, Whole Blood 274 mg/dL (60-115)
[2022-08-04] MEDS: Furosemide 20 MG/2 ML VIAL IVPUSH (11:45)
[2022-08-04] MEDS: amLODIPine Besylate 5 MG TABLET PO (11:46)
[2022-08-04] MEDS: guaiFENesin LA 600 MG TAB.ER.12H PO ×2 (11:46→20:34)
--- NOTE | 2022-08-04 12:19 | P.PNIM_ITS ---
Subjective Subjective Date of Service: 08/04/22 Interval History: the patient was seen and evaluated this morning Laying in bed, increased dyspnea and oxygen requirement overnight 15 L Repeated x-ray showed similar infiltrates reports shortness of breath with minimal exertion No reported other overnight events. Systemic review: No fever, chills or weakness No chest pain, palpitation dyspnea with exertion, increased oxygen requirement No abdominal pain, nausea or vomiting No urinary symptoms No any rash or wounds Physical Exam Vital Signs: Vital Signs: Last Vital Signs Temp 98.8 F 08/04/22 11:18 Pulse 93 08/04/22 11:18 Resp 20 08/04/22 11:18 BP 162/90 H 08/04/22 11:18 Pulse Ox 90 L 08/04/22 11:18 O2 Del Method 08/04/22 11:18 O2 Flow Rate 15 08/04/22 11:18 FiO2 70 08/02/22 10:23 Oxygen Flow Rate 15 07/31/22 22:42 BMI result Body Mass Index 25.2 Const: Other: Constitutional : Alert, oriented, not in distress Neck : Normal inspection, Supple Cardiovascular : RRR, no JVP, no lower extremity edema Respiratory : decreased basal bilateral air entry, basal bilateral crackles, scattered wheezes, on oxygen supplement Gastrointestinal: soft, lax, Normal bowel sounds, Non tender Skin : Warm, Dry Neurological : Alert & oriented x3, No focal deficit Objective Data Active Medications Acetaminophen (Acetaminophen 325 Mg Tablet) 650 mg PO Q6H PRN PRN Reason: Pain, Mild (Pain Scale 1-3) Last Admin: 08/02/22 09:56 Dose: 650 mg Documented By: SHANTE Albuterol Sulfate (Albuterol Sulfate 90 Mcg 8 Gm Inhaler) 2 puff INHALE Q6H PRN PRN Reason: Shortness of Breath/Wheezing Albuterol/Ipratropium (Albuterol/Iprat 2.5/0.5mg 3 Ml Ampul.Neb) 3 ml INHALE RQ4H [facility] Last Admin: 08/04/22 11:08 Dose: Not Given Documented By: ANN Non-Admin Reason: pt took 2 puffs albuterol inhaler med change Amlodipine Besylate (Amlodipine Besylate 5 Mg Tablet) 5 mg PO DAILY [facility]; Protocol Last Admin: 08/04/22 11:46 Dose: 5 mg Documented By: BENJIE Aspirin (Aspirin Enteric Coated 81 Mg Tablet.) 81 mg PO DAILY [facility] Last Admin: 08/04/22 08:14 Dose: 81 mg Documented By: BENJIE Atorvastatin Calcium (Atorvastatin Calcium 40 Mg Tablet) 40 mg PO DAILY [facility] Last Admin: 08/04/22 08:14 Dose: 40 mg Documented By: BENJIE Dextrose (Dextrose 50 % 25 Gm/50 Ml Syringe) 25 gm IVPUSH Q15M PRN; Protocol PRN Reason: per Hypoglycemia Standing Ord. Enoxaparin Sodium (Enoxaparin Sodium 40 Mg/0.4 Ml Syringe) 40 mg SUBCUT BEDTIME [facility] Last Admin: 08/03/22 22:14 Dose: 40 mg Documented By: OLEGARIO Escitalopram Oxalate (Escitalopram Oxalate 10 Mg Tablet) 10 mg PO DAILY [facility] Last Admin: 08/04/22 08:13 Dose: 10 mg Documented By: BENJIE Gabapentin (Gabapentin 300 Mg Capsule) 300 mg PO TID [facility] Last Admin: 08/04/22 08:13 Dose: 300 mg Documented By: BENJIE Glucose (Glucose Gel 15 Gm Gel..Gram.) 15 gm PO Q15M PRN; Protocol PRN Reason: per Hypoglycemia Standing Ord. Guaifenesin (Guaifenesin La 600 Mg Tab.Er.12h) 600 mg PO BID [facility] Last Admin: 08/04/22 11:46 Dose: 600 mg Documented By: BENJIE Piperacillin Sod/Tazobactam (Sod 3.375 gm/ Sodium Chloride) 50 mls @ 100 mls/hr IV Q6H [facility] Last Infusion: 08/04/22 09:24 Dose: 0 mls/hr Documented By: BENJIE Doxycycline Hyclate 100 mg/ (Sodium Chloride) 250 mls @ 166.67 mls/hr IV Q12H [facility] Last Infusion: 08/04/22 04:10 Dose: 0 mls/hr Documented By: OLEGARIO Insulin Human Lispro (Insulin Lispro 100 Unit/Ml 3 Ml Vial) 0 unit SUBCUT Q IDACHS [facility]; Protocol Last Admin: 08/04/22 11:46 Dose: 6 unit Documented By: BENJIE Magnesium Oxide (Magnesium Oxide 400 Mg Tablet) 400 mg PO BIDPC [facility] Last Admin: 08/04/22 08:13 Dose: 400 mg Documented By: BENJIE Melatonin (Melatonin 3 Mg Tablet) 6 mg PO BEDTIME PRN PRN Reason: Insomnia Last Admin: 08/02/22 22:59 Dose: 6 mg Documented By: GLENNY Metoclopramide HCl (Metoclopramide Hcl 10 Mg Tablet) 10 mg PO QID [facility] Last Admin: 08/04/22 08:14 Dose: 10 mg Documented By: BENJIE Metoprolol Succinate (Metoprolol Succinate Er 100 Mg Tab.Er.24h) 100 mg PO DAILY [facility]; Protocol Last Admin: 08/04/22 08:13 Dose: 100 mg Documented By: BENJIE Morphine Sulfate (Morphine Sulfate 2 Mg/Ml Cartridge) 1 mg IVPUSH Q4H PRN; Protocol PRN Reason: pain scale 4-10; sob Last Admin: 08/04/22 05:17 Dose: 1 mg Documented By: OLEGARIO Nicotine (Nicotine 21 Mg Patch.Td24) 21 mg TRANSDERMA DAILY [facility] Last Admin: 08/04/22 08:15 Dose: 21 mg Documented By: BENJIE Omeprazole (Omeprazole 40 Mg Capsule.Dr) 40 mg PO DAILY [facility] Last Admin: 08/04/22 08:13 Dose: 40 mg Documented By: BENJIE Pharmacy Consult (Consult Rx Vancomycin Dosing) 1 each MISCELLANE DAILY PRN PRN Reason: Consult order Prednisone (Prednisone 20 Mg Tablet) 40 mg PO DAILY [facility] Last Admin: 08/04/22 08:14 Dose: 40 mg Documented By: BENJIE Senna (Sennosides 8.6 Mg Tablet) 17.2 mg PO BEDTIME PRN PRN Reason: Constipation Last Admin: 08/03/22 22:35 Dose: 17.2 mg Documented By: OLEGARIO Sodium Chloride (0.9 % Sodium Chloride Flush 3 Ml Syringe) 3 ml IVFLUSH QSHIFT [facility] Last Admin: 08/04/22 08:15 Dose: 3 ml Documented By: BENJIE Trazodone HCl (Trazodone Hcl 50 Mg Tablet) 50 mg PO BEDTIME PRN PRN Reason: Insomnia Last Admin: 08/03/22 22:14 Dose: 50 mg Documented By: OLEGARIO Labs CBC & Chem 7: 08/04/22 06:24 08/04/22 06:24 Labs: Laboratory Results - last 24 hr 08/03/22 08/03/22 08/04/22 16:14 20:23 04:58 MCV MCH MCHC RDW Plt Count MPV Absolute Nucleated RBC Nucleated RBC % (auto) Anion Gap Estim Creat Clear Calc Estimated GFR POC Glucose 345 H 297 H Random Glucose Calcium B-Natriuretic Peptide 621 H Random Vancomycin 08/04/22 08/04/22 08/04/22 06:24 06:24 06:24 MCV 85.1 MCH 27.6 MCHC 32.5 RDW 16.7 H Plt Count 454 H MPV 10.3 Absolute Nucleated RBC 0.000 Nucleated RBC % (auto) 0.0 Anion Gap 17 Estim Creat Clear Calc 46.4 Estimated GFR 44 POC Glucose Random Glucose 226 H Calcium 8.6 B-Natriuretic Peptide Random Vancomycin 12.0 L 08/04/22 08/04/22 08/04/22 06:24 06:24 07:23 MCV MCH MCHC RDW Plt Count MPV Absolute Nucleated RBC Nucleated RBC % (auto) Anion Gap Estim Creat Clear Calc 48.2 Estimated GFR 45 POC Glucose 218 H Random Glucose Calcium B-Natriuretic Peptide 523 H Random Vancomycin 08/04/22 11:15 MCV MCH MCHC RDW Plt Count MPV Absolute Nucleated RBC Nucleated RBC % (auto) Anion Gap Estim Creat Clear Calc Estimated GFR POC Glucose 274 H Random Glucose Calcium B-Natriuretic Peptide Random Vancomycin Assessment and Plan (1) YARELIS (obstructive sleep apnea): Status: Acute (2) Acute respiratory failure with hypoxia: Status: Acute (3) Pneumonia: Status: Acute (4) Congestive heart failure: Status: Acute Plan 47M with PMH DM, PAD, HTN, HLD, COPD, depression, presented with sob. # acute hypoxic respiratory failure secondary to multilobar pneumonia, YARELIS, CHF increased oxygen requirement overnight repeat CXR showed similar infiltrates and decreased Effusion received a dose of Lasix wean as tolerated he had a CPAP titration study at [facility]. supposed to start CPAP after discharge and follow with Dr. Machado # acute on chronic diastolic chf, resolved to give extra dose of Lasix echo with normal EF, restrictive pattern monitor intake and output # heatlh care associated pneumonia with risk for MDR pathogens Negative final serologies, cultures Continue zosyn, doxy DC vancomycin hiv negative id input appreciated, consider DC on doxycycline at discharge copd with acute decompensation Improving steroids, bronchodilators pulmonology input appreciated anemia Hemoglobin less than 10 from baseline of above 12 before January 2020 to Has positive occult blood , no reported bleeding No need further evaluation as outpatient once medically stable for endoscopies Check iron profile KELVIN likely overdiuresis, hold diuretics, acei, monitor HTN amldoipine hld statin pvd statin, asa mood disorder lexapro dvt prophylaxis - lovenox full code reason for continued hospitalization:severe hypoxia Requiring oxygen supplement, treatment for pneumonia with IV antibiotics to prevent possible sepsis and hypoxic failure. Quality Stroke Does the patient have a stroke diagnosis?: No VTE Prior VTE?: No VTE Risk Level:: Medical - moderate - high VTE Device Contraindication: Treatment Not Indicated VTE Drug Contraindication: N/A - Med Ordered
[2022-08-04 13:12] LABS: Iron 25 mcg/dL (45-160); Percent Iron Saturation 7 % (15-50); Total Iron Binding Capacity 359 mcg/dL (228-428); Unsaturated Iron Binding 334 ug/dL
[2022-08-04] MEDS: Acetaminophen 325 MG TABLET 650 MG PO (14:07)
[2022-08-04 16:13] LABS: Glucose, Whole Blood 293 mg/dL (60-115)
[2022-08-04 19:36] LABS: Glucose, Whole Blood 388 mg/dL (60-115)
[2022-08-04] MEDS: Enoxaparin Sodium 40 MG/0.4 ML SYRINGE SUBCUT (20:32)
[2022-08-05] VITALS (13 sets, daily range): BP systolic 114–188; BP diastolic 70–89; PULSE 88–105; RESP 15–20; TEMP 36.7–37.4; O2SAT 92–95
[2022-08-05] MEDS: Albuterol/Iprat 2.5/0.5MG 3 ML AMPUL.NEB INHALE ×6 (01:13→19:44)
[2022-08-05] MEDS: Piperacillin Sodium/Tazobactam 3.375 GM in 0.9 % Sodium Chloride 50 ML IV ×4 (02:23→20:53)
[2022-08-05] MEDS: Doxycycline Hyclate 100 MG in 0.9 % Sodium Chloride 250 ML 166.7 MG IV ×2 (03:19→14:35)
[2022-08-05 07:08] LABS: Hemoglobin 8.6 g/dl (14.0-18.0); Mean Corpuscular HGB Conc 33.1 g/dl (31.0-36.0); Mean Corpuscular Hemoglobin 27.7 pg (27.0-33.0); Mean Corpuscular Volume 83.9 fL (80.0-98.0); Mean Platelet Volume 10.4 fL (9.4-12.4); Platelet Count 396 X10*3/uL (160-400); Red Cell Distribution Width 16.2 % (11.0-16.0); White Blood Count 13.4 X10*3/uL (4.8-10.8)
[2022-08-05 07:14] LABS: Glucose, Whole Blood 380 mg/dL (60-115)
[2022-08-05 07:25] LABS: Creatinine Clr Calc Pharmacy 42.9; Estimated Glomerular Filt Rate 40
[2022-08-05 07:39] LABS: Anion Gap 17 (12-20); Blood Urea Nitrogen 26 mg/dL (9-16); Calcium 8.2 mg/dL (8.4-10.2); Carbon Dioxide 21 mmol/L (22-29); Chloride 107 mmol/L (96-108); Creatinine Clr Calc Pharmacy 43.6; Estimated Glomerular Filt Rate 40; Glucose Random 439 mg/dL (60-115); Potassium 3.8 mmol/L (3.3-5.1); Sodium 141 mmol/L (135-145)
[2022-08-05] MEDS: Insulin Lispro 100 UNIT/ML 3 ML VIAL SUBCUT ×5 (09:45→21:33)
[2022-08-05] MEDS: Gabapentin 300 MG CAPSULE PO ×3 (09:46→20:53)
[2022-08-05] MEDS: Nicotine 21 MG PATCH.TD24 TRANSDERMA (09:46)
[2022-08-05] MEDS: predniSONE 20 MG TABLET 40 MG PO (09:46)
[2022-08-05] MEDS: Metoclopramide HCl 10 MG TABLET PO ×3 (09:46→20:53)
[2022-08-05] MEDS: Omeprazole 40 MG CAPSULE.DR PO (09:46)
[2022-08-05] MEDS: Insulin Glargine,Hum.rec.anlog 100 UNIT/ML 10 ML VIAL 10 UNIT SUBCUT (09:46)
[2022-08-05] MEDS: Metoprolol Succinate ER 100 MG TAB.ER.24H PO (09:46)
[2022-08-05] MEDS: amLODIPine Besylate 5 MG TABLET PO ×2 (09:46→12:19)
[2022-08-05] MEDS: guaiFENesin LA 600 MG TAB.ER.12H PO ×2 (09:46→20:53)
[2022-08-05] MEDS: Atorvastatin Calcium 40 MG TABLET PO (09:46)
[2022-08-05] MEDS: Aspirin Enteric Coated 81 MG TABLET.DR PO (09:46)
[2022-08-05] MEDS: Magnesium Oxide 400 MG TABLET PO ×2 (09:46→17:13)
[2022-08-05] MEDS: Escitalopram Oxalate 10 MG TABLET PO (09:46)
--- NOTE | 2022-08-05 11:14 | PC.NURSE ---
Addendum entered by Thomas Russell RN 08/05/22 18:40: informed of pt's BP this evening. no new orders at this time. pt has insulin machine to LUE that is not in use per pt Addendum entered by Thomas Russell RN 08/05/22 12:58: informed pt BP still elevated Addendum entered by Thomas Russell RN 08/05/22 11:29: informed of pt's elevated BP after AM meds and continued elevated POC Original Note: informed of pt's elevated sugars. meds administered as ordered. informed pt's request to start home meds
[2022-08-05 11:25] LABS: Glucose, Whole Blood 353 mg/dL (60-115)
[2022-08-05] MEDS: Ferrous Sulfate 324 MG TABLET.DR PO (11:38)
[2022-08-05] MEDS: Labetalol HCL 100 MG/20 ML VIAL IVPUSH (13:08)
--- NOTE | 2022-08-05 14:35 | HO.PM.IMPN ---
Subjective Subjective Date of Service: 08/05/22 Interval History: the patient was seen and evaluated this morning Laying in bed, feels mild improvement with decreased oxygen requirement to 10 L Blood pressure significantly elevated reports shortness of breath with minimal exertion No reported other overnight events. Systemic review: No fever, chills or weakness No chest pain, palpitation dyspnea with exertion, increased oxygen requirement No abdominal pain, nausea or vomiting No urinary symptoms No any rash or wounds Physical Exam Vital Signs: Vital Signs: Last Vital Signs Temp 98.7 F 08/05/22 11:07 Pulse 94 08/05/22 11:13 Resp 16 08/05/22 11:13 BP 178/70 H 08/05/22 13:02 Pulse Ox 94 08/05/22 11:07 O2 Del Method 08/05/22 11:07 O2 Flow Rate 10 08/05/22 11:07 FiO2 70 08/02/22 10:23 Oxygen Flow Rate 15 07/31/22 22:42 BMI result Body Mass Index 25.2 Const: Other: Constitutional : Alert, oriented, not in distress Neck : Normal inspection, Supple Cardiovascular : RRR, no JVP, no lower extremity edema Respiratory : decreased basal bilateral air entry, basal bilateral crackles, scattered wheezes, on oxygen supplement Gastrointestinal: soft, lax, Normal bowel sounds, Non tender Skin : Warm, Dry Neurological : Alert & oriented x3, No focal deficit Objective Data Active Medications Acetaminophen (Acetaminophen 325 Mg Tablet) 650 mg PO Q6H PRN PRN Reason: Pain, Mild (Pain Scale 1-3) Last Admin: 08/04/22 14:07 Dose: 650 mg Documented By: BENJIE Albuterol Sulfate (Albuterol Sulfate 90 Mcg 8 Gm Inhaler) 2 puff INHALE Q6H PRN PRN Reason: Shortness of Breath/Wheezing Albuterol/Ipratropium (Albuterol/Iprat 2.5/0.5mg 3 Ml Ampul.Neb) 3 ml INHALE RQ4H [facility] Last Admin: 08/05/22 11:13 Dose: 3 ml Documented By: MAYCOL Amlodipine Besylate (Amlodipine Besylate 10 Mg Tablet) 10 mg PO DAILY [facility]; Protocol Aspirin (Aspirin Enteric Coated 81 Mg Tablet.) 81 mg PO DAILY [facility] Last Admin: 08/05/22 09:46 Dose: 81 mg Documented By: YOHAN Atorvastatin Calcium (Atorvastatin Calcium 40 Mg Tablet) 40 mg PO DAILY [facility] Last Admin: 08/05/22 09:46 Dose: 40 mg Documented By: YOHAN Dextrose (Dextrose 50 % 25 Gm/50 Ml Syringe) 25 gm IVPUSH Q15M PRN; Protocol PRN Reason: per Hypoglycemia Standing Ord. Escitalopram Oxalate (Escitalopram Oxalate 10 Mg Tablet) 10 mg PO DAILY [facility] Last Admin: 08/05/22 09:46 Dose: 10 mg Documented By: YOHAN Ferrous Sulfate (Ferrous Sulfate 324 Mg Tablet.Dr) 324 mg PO DAILY [facility] Last Admin: 08/05/22 11:38 Dose: 324 mg Documented By: YOHAN Gabapentin (Gabapentin 300 Mg Capsule) 300 mg PO TID [facility] Last Admin: 08/05/22 09:46 Dose: 300 mg Documented By: YOHAN Glucose (Glucose Gel 15 Gm Gel..Gram.) 15 gm PO Q15M PRN; Protocol PRN Reason: per Hypoglycemia Standing Ord. Guaifenesin (Guaifenesin La 600 Mg Tab.Er.12h) 600 mg PO BID [facility] Last Admin: 08/05/22 09:46 Dose: 600 mg Documented By: YOHAN Piperacillin Sod/Tazobactam (Sod 3.375 gm/ Sodium Chloride) 50 mls @ 100 mls/hr IV Q6H [facility] Last Infusion: 08/05/22 10:27 Dose: 0 mls/hr Documented By: YOHAN Doxycycline Hyclate 100 mg/ (Sodium Chloride) 250 mls @ 166.67 mls/hr IV Q12H [facility] Last Infusion: 08/05/22 06:05 Dose: 0 mls/hr Documented By: NATALIE Insulin Glargine (Insulin Glargine,Hum.Rec.Anlog 100 Unit/Ml 10 Ml Vial) 10 unit SUBCUT DAILY [facility] Last Admin: 08/05/22 09:46 Dose: 10 unit Documented By: YOHAN Insulin Human Lispro (Insulin Lispro 100 Unit/Ml 3 Ml Vial) 0 unit SUBCUT QIDACHS [facility]; Protocol Last Admin: 08/05/22 11:38 Dose: 10 unit Documented By: YOHAN Magnesium Oxide (Magnesium Oxide 400 Mg Tablet) 400 mg PO BIDPC [facility] Last Admin: 08/05/22 09:46 Dose: 400 mg Documented By: YOHAN Melatonin (Melatonin 3 Mg Tablet) 6 mg PO BEDTIME PRN PRN Reason: Insomnia Last Admin: 08/02/22 22:59 Dose: 6 mg Documented By: GLENNY Metoclopramide HCl (Metoclopramide Hcl 10 Mg Tablet) 10 mg PO QID [facility] Last Admin: 08/05/22 09:46 Dose: 10 mg Documented By: YOHAN Metoprolol Succinate (Metoprolol Succinate Er 100 Mg Tab.Er.24h) 100 mg PO DAILY [facility]; Protocol Last Admin: 08/05/22 09:46 Dose: 100 mg Documented By: YOHAN Morphine Sulfate (Morphine Sulfate 2 Mg/Ml Cartridge) 1 mg IVPUSH Q4H PRN; Protocol PRN Reason: pain scale 4-10; sob Last Admin: 08/04/22 05:17 Dose: 1 mg Documented By: OLEGARIO Nicotine (Nicotine 21 Mg Patch.Td24) 21 mg TRANSDERMA DAILY [facility] Last Admin: 08/05/22 09:46 Dose: 21 mg Documented By: YOHAN Omeprazole (Omeprazole 40 Mg Capsule.Dr) 40 mg PO DAILY [facility] Last Admin: 08/05/22 09:46 Dose: 40 mg Documented By: YOHAN Pharmacy Consult (Consult Rx Vancomycin Dosing) 1 each MISCELLANE DAILY PRN PRN Reason: Consult order Prednisone (Prednisone 20 Mg Tablet) 40 mg PO DAILY [facility] Last Admin: 08/05/22 09:46 Dose: 40 mg Documented By: YOHAN Senna (Sennosides 8.6 Mg Tablet) 17.2 mg PO BEDTIME PRN PRN Reason: Constipation Last Admin: 08/03/22 22:35 Dose: 17.2 mg Documented By: OLEGARIO Sodium Chloride (0.9 % Sodium Chloride Flush 3 Ml Syringe) 3 ml IVFLUSH QSHIFT [facility] Last Admin: 08/05/22 07:29 Dose: Not Given Documented By: YOHAN Non-Admin Reason: See Note Trazodone HCl (Trazodone Hcl 50 Mg Tablet) 50 mg PO BEDTIME PRN PRN Reason: Insomnia Last Admin: 08/03/22 22:14 Dose: 50 mg Documented By: OLEGARIO Labs CBC & Chem 7: 08/05/22 06:46 08/05/22 06:46 Labs: Laboratory Results - last 24 hr 08/04/22 08/04/22 08/05/22 15:37 19:05 06:46 MCV 83.9 MCH 27.7 MCHC 33.1 RDW 16.2 H Plt Count 396 MPV 10.4 Absolute Nucleated RBC 0.000 Nucleated RBC % (auto) 0.0 Anion Gap Estim Creat Clear Calc Estimated GFR POC Glucose 293 H 388 H* Random Glucose Calcium 08/05/22 08/05/22 08/05/22 06:46 06:46 07:08 MCV MCH MCHC RDW Plt Count MPV Absolute Nucleated RBC Nucleated RBC % (auto) Anion Gap 17 Estim Creat Clear Calc 43.6 42.9 Estimated GFR 40 40 POC Glucose 380 H* Random Glucose 439 H* Calcium 8.2 L 08/05/22 11:09 MCV MCH MCHC RDW Plt Count MPV Absolute Nucleated RBC Nucleated RBC % (auto) Anion Gap Estim Creat Clear Calc Estimated GFR POC Glucose 353 H* Random Glucose Calcium Assessment and Plan (1) Acute respiratory failure with hypoxia: Status: Acute (2) Pneumonia: Status: Acute (3) Congestive heart failure: Status: Acute (4) Hyperglycemia due to type 2 diabetes mellitus: Status: Acute (5) Acute on chronic anemia: Status: Acute Plan 47M with PMH DM, PAD, HTN, HLD, COPD, depression, presented with sob. # acute hypoxic respiratory failure secondary to multilobar pneumonia, YARELIS, CHF Improving slowly repeat CXR showed similar infiltrates and decreased Effusion To give a dose of Lasix wean as tolerated he had a CPAP titration study at [facility]. supposed to start CPAP after discharge and follow with Dr. Machado Use CPAP at nighttime # acute on chronic diastolic chf, resolved To give a dose of Lasix today echo with normal EF, restrictive pattern monitor intake and output # heatlh care associated pneumonia with risk for MDR pathogens Negative final serologies, cultures Continue zosyn, doxy DC vancomycin hiv negative id input appreciated, consider DC on doxycycline at discharge # copd with acute decompensation Improving steroids, bronchodilators pulmonology input appreciated # acute on chronic anemia Hemoglobin dropped to 8.8 from baseline of above 12 before January 2022 Has positive occult blood , no reported bleeding No need further evaluation as outpatient once medically stable for endoscopies Low iron profile , to give iron supplement To get GI evaluation # hyperglycemia secondary to diabetes Associated with acute illness and steroid usage Start Lantus 10 units daily SSI # KELVIN Remains elevated at 1.8 hold diuretics, acei, monitor # elevated HTN Increase amlodipine to 10 mg Lisinopril on hold for Kelvin I Continue metoprolol hld statin pvd statin, asa mood disorder lexapro dvt prophylaxis - lovenox full code reason for continued hospitalization: hypoxia Requiring oxygen supplement, treatment for pneumonia with IV antibiotics to prevent possible sepsis and hypoxic failure. Quality Stroke Does the patient have a stroke diagnosis?: No VTE Prior VTE?: No VTE Risk Level:: Medical - moderate - high VTE Device Contraindication: Treatment Not Indicated VTE Drug Contraindication: N/A - Med Ordered
[2022-08-05] MEDS: Furosemide 20 MG/2 ML VIAL IVPUSH (15:21)
--- NOTE | 2022-08-05 15:29 | MHC.CM.PN ---
Per MD rounds no dc today. Patient is in the process of being weaned from oxygen. [facility] no services, family will provide transport.
--- NOTE | 2022-08-05 18:37 | PM.EVENT ---
Event Note Date of Service: 08/05/22 Event Note: GI Consult-Full note dictated-Hx via patient, RN, and EMR Imp: 47 yo with significant baseline pulmonary disease admitted with respiratory decompensation due to pneumonia. He has been noted to have a new normocytic anemia with low Iron saturation and Heme + stool. He has a history of esophageal candidiasis and esophagitis on previous upper endoscopy in 2019, but has never had a colonoscopy. He takes one aspirin daily and does continue to smoke. He has some renal insufficiency, PVD with a stent in the LLE, IDDM, CHF. He presently denies any specific GI symptoms. He denies NSAIDs and significant alcohol. He has not need any transfusions and has had no signs of active bleeding. Of note, he advises me that he is scheduled for an EGD and Colonoscopy at [facility] through his PCP at [facility] in [place]. He says it is scheduled for the next month or so. Diff dx: Chronic GI blood loss due to gastritis/esophagitis, silent peptic ulcer disease, upper or lower GI neoplasm, and/or AVM's. The anemia may also be at least partially due to his chronic diseases and renal insufficiency as well. Rec: Check Ferritin, B12, and Folate. Continue PPI and Iron. Follow Hgb. Stop aspirin unless there is a definite need for that. I would not recommend inpatient EGD/Colonoscopy given his precarious respiratory status and no sign of active GI bleeding. However, I advised him to certainly keep the appointment for his EGD and Colonoscopy at [facility], and to make sure he advises his PCP of this hospitalization so as to make sure he is cleared for those GI procedures with Anesthesia. Please advise me if I can be of further assistance during his hospitalization. Thanks
[2022-08-05 18:39] LABS: Glucose, Whole Blood 113 mg/dL (60-115)
[2022-08-05] MEDS: 0.9 % Sodium Chloride Flush 3 ML SYRINGE IVFLUSH (20:53)
[2022-08-05] MEDS: traZODone HCL 50 MG TABLET PO (20:56)
[2022-08-05] MEDS: Acetaminophen 325 MG TABLET 650 MG PO (20:56)
[2022-08-05 21:51] LABS: Glucose, Whole Blood 266 mg/dL (60-115)
[2022-08-06] VITALS (14 sets, daily range): BP systolic 164–196; BP diastolic 83–95; PULSE 73–100; RESP 16–20; TEMP 36.6–37.1; O2SAT 92–97
[2022-08-06] MEDS: Albuterol/Iprat 2.5/0.5MG 3 ML AMPUL.NEB INHALE ×7 (00:19→23:49)
[2022-08-06] MEDS: Piperacillin Sodium/Tazobactam 3.375 GM in 0.9 % Sodium Chloride 50 ML IV ×4 (02:27→21:17)
--- NOTE | 2022-08-06 02:57 | PC.NURSE ---
patient refusing bed alarm despite education on risks
[2022-08-06] MEDS: Doxycycline Hyclate 100 MG in 0.9 % Sodium Chloride 250 ML 166.7 MG IV ×2 (03:00→14:21)
[2022-08-06 06:52] LABS: Hematocrit 27.2 % (42.0-52.0); Hemoglobin 8.8 g/dl (14.0-18.0); Mean Corpuscular HGB Conc 32.4 g/dl (31.0-36.0); Mean Corpuscular Volume 83.4 fL (80.0-98.0); Platelet Count 408 X10*3/uL (160-400); Red Blood Count 3.26 X10*6/uL (4.60-5.80)
[2022-08-06 07:17] LABS: Anion Gap 18 (12-20); Blood Urea Nitrogen 24 mg/dL (9-16); Calcium 8.5 mg/dL (8.4-10.2); Carbon Dioxide 19 mmol/L (22-29); Chloride 107 mmol/L (96-108); Creatinine Clr Calc Pharmacy 48.2; Estimated Glomerular Filt Rate 45; Glucose Random 336 mg/dL (60-115); Potassium 4.2 mmol/L (3.3-5.1); Sodium 140 mmol/L (135-145)
[2022-08-06 07:24] LABS: Glucose, Whole Blood 298 mg/dL (60-115)
[2022-08-06 07:33] LABS: Alanine Aminotransferase 21 U/L (0-40); Albumin Level 3.2 g/dL (3.5-5.0); Alkaline Phosphatase 89 U/L (39-117); Aspartate Amino Transferase 16 U/L (5-37); Bilirubin Direct < 0.2 mg/dL (0.0-0.5); Bilirubin Total 0.2 mg/dL (0.0-1.0); Creatinine Clr Calc Pharmacy 48.2; Estimated Glomerular Filt Rate 45; Total Protein 5.6 g/dL (6.5-8.0)
[2022-08-06] MEDS: Insulin Lispro 100 UNIT/ML 3 ML VIAL SUBCUT ×4 (07:53→21:16)
[2022-08-06] MEDS: Metoclopramide HCl 10 MG TABLET PO ×4 (07:54→21:16)
[2022-08-06] MEDS: Omeprazole 40 MG CAPSULE.DR PO (07:54)
[2022-08-06] MEDS: Metoprolol Succinate ER 100 MG TAB.ER.24H PO (07:54)
[2022-08-06] MEDS: Atorvastatin Calcium 40 MG TABLET PO (07:54)
[2022-08-06] MEDS: Magnesium Oxide 400 MG TABLET PO ×2 (07:54→15:55)
[2022-08-06] MEDS: guaiFENesin LA 600 MG TAB.ER.12H PO ×2 (07:54→21:15)
[2022-08-06] MEDS: Escitalopram Oxalate 10 MG TABLET PO (07:54)
[2022-08-06] MEDS: predniSONE 20 MG TABLET 40 MG PO (07:55)
[2022-08-06] MEDS: Insulin Glargine,Hum.rec.anlog 100 UNIT/ML 10 ML VIAL 10 UNIT SUBCUT (07:55)
[2022-08-06] MEDS: Gabapentin 300 MG CAPSULE PO ×3 (07:55→21:15)
[2022-08-06] MEDS: amLODIPine Besylate 10 MG TABLET PO (07:55)
[2022-08-06] MEDS: Ferrous Sulfate 324 MG TABLET.DR PO (07:55)
[2022-08-06] MEDS: Nicotine 21 MG PATCH.TD24 TRANSDERMA (07:56)
[2022-08-06] MEDS: 0.9 % Sodium Chloride Flush 3 ML SYRINGE IVFLUSH ×2 (07:56→15:56)
[2022-08-06] MEDS: Insulin Glargine,Hum.rec.anlog 100 UNIT/ML 10 ML VIAL SUBCUT (09:27)
[2022-08-06] MEDS: Acetaminophen 325 MG TABLET 650 MG PO (09:27)
[2022-08-06 10:19] LABS: Folate 6.7 ng/mL (> or = 4.0)
--- NOTE | 2022-08-06 11:18 | HO.PM.IMPN ---
Subjective Subjective Date of Service: 08/06/22 Interval History: the patient was seen and evaluated this morning Laying in bed, improving slowly with decreased oxygen requirement to 8 L Blood pressure better controlled but still elevated No reported other overnight events. Systemic review: No fever, chills or weakness No chest pain, palpitation dyspnea with exertion, oxygen requirement No abdominal pain, nausea or vomiting No urinary symptoms No any rash or wounds Physical Exam Vital Signs: Vital Signs: Last Vital Signs Temp 98.8 F 08/06/22 07:38 Pulse 91 08/06/22 07:42 Resp 18 08/06/22 07:42 BP 164/94 H 08/06/22 07:38 Pulse Ox 95 08/06/22 08:50 O2 Del Method 08/06/22 08:50 O2 Flow Rate 7 08/06/22 08:50 FiO2 70 08/02/22 10:23 Oxygen Flow Rate 15 07/31/22 22:42 BMI result Body Mass Index 25.2 Const: Other: Constitutional : Alert, oriented, not in distress Neck : Normal inspection, Supple Cardiovascular : RRR, no JVP, no lower extremity edema Respiratory : decreased basal bilateral air entry, basal bilateral crackles, scattered wheezes, on oxygen supplement Gastrointestinal: soft, lax, Normal bowel sounds, Non tender Skin : Warm, Dry Neurological : Alert & oriented x3, No focal deficit Objective Data Active Medications Acetaminophen (Acetaminophen 325 Mg Tablet) 650 mg PO Q6H PRN PRN Reason: Pain, Mild (Pain Scale 1-3) Last Admin: 08/06/22 09:27 Dose: 650 mg Documented By: NURA Albuterol Sulfate (Albuterol Sulfate 90 Mcg 8 Gm Inhaler) 2 puff INHALE Q6H PRN PRN Reason: Shortness of Breath/Wheezing Albuterol/Ipratropium (Albuterol/Iprat 2.5/0.5mg 3 Ml Ampul.Neb) 3 ml INHALE RQ4H [facility] Last Admin: 08/06/22 07:41 Dose: 3 ml Documented By: MAYCOL Amlodipine Besylate (Amlodipine Besylate 10 Mg Tablet) 10 mg PO DAILY [facility]; Protocol Last Admin: 08/06/22 07:55 Dose: 10 mg Documented By: NURA Aspirin (Aspirin Enteric Coated 81 Mg Tablet.) 81 mg PO DAILY [facility] Last Admin: 08/05/22 09:46 Dose: 81 mg Documented By: YOHAN Atorvastatin Calcium (Atorvastatin Calcium 40 Mg Tablet) 40 mg PO DAILY [facility] Last Admin: 08/06/22 07:54 Dose: 40 mg Documented By: NURA Dextrose (Dextrose 50 % 25 Gm/50 Ml Syringe) 25 gm IVPUSH Q15M PRN; Protocol PRN Reason: per Hypoglycemia Standing Ord. Escitalopram Oxalate (Escitalopram Oxalate 10 Mg Tablet) 10 mg PO DAILY [facility] Last Admin: 08/06/22 07:54 Dose: 10 mg Documented By: NURA Ferrous Sulfate (Ferrous Sulfate 324 Mg Tablet.Dr) 324 mg PO DAILY [facility] Last Admin: 08/06/22 07:55 Dose: 324 mg Documented By: NURA Gabapentin (Gabapentin 300 Mg Capsule) 300 mg PO TID [facility] Last Admin: 08/06/22 07:55 Dose: 300 mg Documented By: NURA Glucose (Glucose Gel 15 Gm Gel..Gram.) 15 gm PO Q15M PRN; Protocol PRN Reason: per Hypoglycemia Standing Ord. Guaifenesin (Guaifenesin La 600 Mg Tab.Er.12h) 600 mg PO BID [facility] Last Admin: 08/06/22 07:54 Dose: 600 mg Documented By: NURA Piperacillin Sod/Tazobactam (Sod 3.375 gm/ Sodium Chloride) 50 mls @ 100 mls/hr IV Q6H [facility] Last Infusion: 08/06/22 08:48 Dose: 0 mls/hr Documented By: NURA Doxycycline Hyclate 100 mg/ (Sodium Chloride) 250 mls @ 166.67 mls/hr IV Q12H [facility] Last Infusion: 08/06/22 05:32 Dose: 0 mls/hr Documented By: CATRACHITA Insulin Glargine (Insulin Glargine,Hum.Rec.Anlog 100 Unit/Ml 10 Ml Vial) 15 unit SUBCUT DAILY [facility] Last Admin: 08/06/22 09:23 Dose: Not Given Documented By: NURA Non-Admin Reason: med previously given Insulin Human Lispro (Insulin Lispro 100 Unit/Ml 3 Ml Vial) 0 unit SUBCUT QIDACHS [facility]; Protocol Last Admin: 08/06/22 07:53 Dose: 6 unit Documented By: NURA Magnesium Oxide (Magnesium Oxide 400 Mg Tablet) 400 mg PO BIDPC [facility] Last Admin: 08/06/22 07:54 Dose: 400 mg Documented By: NURA Melatonin (Melatonin 3 Mg Tablet) 6 mg PO BEDTIME PRN PRN Reason: Insomnia Last Admin: 08/02/22 22:59 Dose: 6 mg Documented By: GLENNY Metoclopramide HCl (Metoclopramide Hcl 10 Mg Tablet) 10 mg PO QID [facility] Last Admin: 08/06/22 07:54 Dose: 10 mg Documented By: NURA Metoprolol Succinate (Metoprolol Succinate Er 100 Mg Tab.Er.24h) 100 mg PO DAILY [facility]; Protocol Last Admin: 08/06/22 07:54 Dose: 100 mg Documented By: NURA Nicotine (Nicotine 21 Mg Patch.Td24) 21 mg TRANSDERMA DAILY [facility] Last Admin: 08/06/22 07:56 Dose: 21 mg Documented By: NURA Omeprazole (Omeprazole 40 Mg Capsule.Dr) 40 mg PO DAILY [facility] Last Admin: 08/06/22 07:54 Dose: 40 mg Documented By: NURA Pharmacy Consult (Consult Rx Vancomycin Dosing) 1 each MISCELLANE DAILY PRN PRN Reason: Consult order Prednisone (Prednisone 20 Mg Tablet) 40 mg PO DAILY [facility] Last Admin: 08/06/22 07:55 Dose: 40 mg Documented By: NURA Senna (Sennosides 8.6 Mg Tablet) 17.2 mg PO BEDTIME PRN PRN Reason: Constipation Last Admin: 08/03/22 22:35 Dose: 17.2 mg Documented By: NAUMOC Sodium Chloride (0.9 % Sodium Chloride Flush 3 Ml Syringe) 3 ml IVFLUSH QSHIFT [facility] Last Admin: 08/06/22 07:56 Dose: 3 ml Documented By: NURA Trazodone HCl (Trazodone Hcl 50 Mg Tablet) 50 mg PO BEDTIME PRN PRN Reason: Insomnia Last Admin: 08/05/22 20:56 Dose: 50 mg Documented By: ANTOIC Labs CBC & Chem 7: 08/06/22 06:21 08/06/22 06:21 Labs: Laboratory Results - last 24 hr 08/05/22 08/05/22 08/05/22 11:09 17:10 20:06 MCV MCH MCHC RDW Plt Count MPV Absolute Nucleated RBC Nucleated RBC % (auto) Anion Gap Estim Creat Clear Calc Estimated GFR POC Glucose 353 H* 113 266 H Random Glucose Calcium Total Bilirubin Direct Bilirubin AST ALT Alkaline Phosphatase Total Protein Albumin Folate Vancomycin Trough 08/06/22 08/06/22 08/06/22 06:21 06:21 06:21 MCV 83.4 MCH 27.0 MCHC 32.4 RDW 16.0 Plt Count 408 H MPV 10.0 Absolute Nucleated RBC 0.000 Nucleated RBC % (auto) 0.0 Anion Gap Estim Creat Clear Calc 48.2 Estimated GFR 45 POC Glucose Random Glucose Calcium Total Bilirubin 0.2 Direct Bilirubin < 0.2 AST 16 ALT 21 Alkaline Phosphatase 89 D Total Protein 5.6 L Albumin 3.2 L Folate Vancomycin Trough 4.0 L 08/06/22 08/06/22 08/06/22 06:21 06:21 07:19 MCV MCH MCHC RDW Plt Count MPV Absolute Nucleated RBC Nucleated RBC % (auto) Anion Gap 18 Estim Creat Clear Calc 48.2 Estimated GFR 45 POC Glucose 298 H Random Glucose 336 H Calcium 8.5 Total Bilirubin Direct Bilirubin AST ALT Alkaline Phosphatase Total Protein Albumin Folate 6.7 Vancomycin Trough Microbiology Microbiology Results: Microbiology 07/31/22 21:16 Blood Culture - Final Blood - Venous No growth after 5 days. Blood Culture - Final No growth after 5 days. 07/31/22 21:16 Blood Culture - Final Blood - Venous No growth after 5 days. Assessment and Plan (1) Acute on chronic anemia: Status: Acute (2) Hyperglycemia due to type 2 diabetes mellitus: Status: Acute (3) Acute respiratory failure with hypoxia: Status: Acute Plan 47M with PMH DM, PAD, HTN, HLD, COPD, depression, presented with sob. # acute hypoxic respiratory failure secondary to multilobar pneumonia, YARELIS, CHF Improving slowly repeat CXR showed similar infiltrates and decreased Effusion wean as tolerated he had a CPAP titration study at [facility]. supposed to start CPAP after discharge and follow with Dr. Machado Use CPAP at nighttime # acute on chronic diastolic chf, resolved To give a dose of Lasix today echo with normal EF, restrictive pattern monitor intake and output # heatlh care associated pneumonia with risk for MDR pathogens Negative final serologies, cultures Continue zosyn, doxy DC vancomycin hiv negative id input appreciated, consider DC on doxycycline at discharge # copd with acute decompensation Improving steroids, bronchodilators pulmonology input appreciated # acute on chronic anemia Hemoglobin dropped to 8.8 from baseline of above 12 before January 2022 Has positive occult blood , no reported bleeding No need further evaluation as outpatient once medically stable for endoscopies Low iron profile , to give iron supplement GI input appreciated, to follow as outpatient with GI for endoscopy, Hold aspirin if not needed necessary for now # hyperglycemia secondary to diabetes Associated with acute illness and steroid usage Increase Lantus to 15 units daily SSI # KELVIN improved to 1.6 hold diuretics, acei, monitor # elevated HTN Increase amlodipine to 10 mg Lisinopril on hold for Kelvin I Continue metoprolol hld statin pvd statin, asa mood disorder lexapro dvt prophylaxis SCDs, hold lovenox for GIB reason for continued hospitalization: hypoxia Requiring oxygen supplement, treatment for pneumonia with IV antibiotics to prevent possible sepsis and hypoxic failure. Quality Stroke Does the patient have a stroke diagnosis?: No VTE Prior VTE?: No VTE Risk Level:: Medical - moderate - high VTE Device Contraindication: Treatment Not Indicated VTE Drug Contraindication: N/A - Med Ordered
--- NOTE | 2022-08-06 13:24 | CONS_ITS ---
DATE OF SERVICE: 08/05/2022 REASON FOR CONSULTATION: Anemia, iron deficiency, and heme-positive stool. HISTORY OF PRESENT ILLNESS: This has been obtained from the patient, his nurse, and the medical record. The patient is a 47-year-old male admitted here on July 31 with severe respiratory compromise in relation to underlying lung disease and pneumonia. Things have stabilized on antibiotics. I did meet him in 2018, at which time he was admitted for problems including esophageal candidiasis. An upper endoscopy at that time revealed esophageal candidiasis and esophagitis. He responded well to Diflucan. The patient has been noted to be anemic here in the hospital compared to a baseline back in January. In January, his hemoglobin was 12.2, and on admission here, his hemoglobin was 9.8 with a normal MCV. Hemoglobin has remained stable here although did drop to 8.6 today. He has been found to have heme-positive stool, but there has been no sign of melena, nor hematochezia. He has been eating comfortably and denies any significant heartburn, dysphagia, odynophagia, nausea, nor vomiting. He denies any abdominal pain other than intermittent lower abdominal cramps. He denies any jaundice. He is on a single aspirin daily but denies any NSAID use, significant alcohol use, nor any other blood thinners. He still does smoke. He reports he has never had a colonoscopy. However, he does report that he has been scheduled for an upper endoscopy and colonoscopy at [facility] by his primary care physician at [facility]. He says the procedures are scheduled for the next month or so. His medications here in the hospital include acetaminophen, albuterol inhaler p.r.n., amlodipine, aspirin 81 mg, atorvastatin, doxycycline IV, Lexapro, iron, gabapentin, Mucinex, insulin, magnesium oxide, melatonin, metoclopramide, metoprolol, morphine p.r.n., omeprazole 40 mg p.o. daily, IV Zosyn, prednisone 40 mg daily, Senokot, trazodone. PAST MEDICAL HISTORY: Sleep apnea and COPD. He reports that he wears oxygen at night. Peripheral vascular disease for which he has a stent in the left lower extremity. Congestive heart failure. Insulin dependent diabetes mellitus. Pneumonia. Renal insufficiency. He denies any history of AK or stroke. Aside from the stent in the left lower leg, but denies any other surgical intervention in his life. He does have hyperlipidemia, hypertension, and depression along with anxiety as well. SOCIAL HISTORY: He lives with a significant other. He does smoke. He denies any significant alcohol use. FAMILY HISTORY: Noncontributory. REVIEW OF SYSTEMS: CONSTITUTIONAL: He has been feeling poorly in relation to his respiratory status, but does feel better since he has been admitted here. SKIN: No rash, no pruritus. CARDIAC: No chest pain. PULMONARY: Has been short of breath with coughing. GI: As above. URINARY: No dysuria, no hematuria. PHYSICAL EXAMINATION: GENERAL: The patient is a pleasant, alert, cooperative, comfortable appearing male. SKIN: Warm and dry. Anicteric sclerae. NECK: Supple, CARDIAC: Normal S1, S2. ABDOMEN: Soft, nondistended, nontender without mass. LABORATORIES: Stool was heme-positive in the lab. White blood cell count 13.4, hemoglobin 8.6, MCV 84, platelets 296,000. His CBC on admission was hemoglobin 9.8 and hematocrit 30.2. PT 10.7, INR 0.9. On July 31. Normal electrolytes. BUN 26, creatinine 1.8, blood sugar 439, calcium 8.2, iron 25, iron saturation 7%. Admitting LFTs were normal except for an alkaline phosphatase of 133. Albumin is 3.6. His chest x-ray on admission revealed multifocal airspace disease of the lungs suspicious for infection, and suspicion of pulmonary edema. Abdominal CT scan in May 2021 was negative for any acute findings nor GI tract abnormalities. IMPRESSION: Given the patient's clinical history, I suspect his anemia is multifactorial in regard to chronic blood loss, as well as his multiple medical problems including renal insufficiency, chronic use of aspirin, and significant chronic lung disease. He is not having any particular localizing GI symptoms at this time. The differential diagnosis in regard to GI blood loss is quite broad and would include gastritis, esophagitis, silent peptic ulcer disease, upper or lower GI neoplasm, and/or angiodysplasia. At this point, he is not having any active bleeding, and therefore endoscopy or colonoscopy is not required urgently. Given the significant pulmonary disease at baseline and worsening with pneumonia prompting this admission, I would hold off on doing anything as an inpatient unless he develops any signs of active bleeding. I would continue to follow his hemoglobin, stop aspirin unless definitively needed, continue his PPI and iron replacement, and check his ferritin level, B12, and folate levels. I did advise him that he definitely needs to keep his appointment for the scheduled upper endoscopy and colonoscopy at [facility] through his [facility] primary care physician. I did advise him to be sure to advise his PCP of this hospitalization so they can be sure he is medically cleared for those GI procedures with anesthesia. We did review that certainly if he develops any signs of active bleeding in the hospital, we could then reassess things and do any inpatient procedures as needed. However, if things are stable in this regard, I would recommend the GI procedures to be done at the planned outpatient appointment in the next month or so. This has all been discussed in detail with the patient and he is comfortable with this plan. Thank you for the consultation. MD ANASTASIYA Saravia/SCAR / [phone] AMILCAR
--- NOTE | 2022-08-06 15:00 | PC.NURSE ---
Assumed care of patient at this time.
[2022-08-06] MEDS: Furosemide 20 MG/2 ML VIAL IVPUSH (15:56)
[2022-08-07] VITALS (9 sets, daily range): BP systolic 142–199; BP diastolic 74–97; PULSE 88–119; RESP 17–20; TEMP 36.9–37.1; O2SAT 87–96
[2022-08-07] MEDS: Piperacillin Sodium/Tazobactam 3.375 GM in 0.9 % Sodium Chloride 50 ML IV (02:22)
[2022-08-07] MEDS: 0.9 % Sodium Chloride Flush 3 ML SYRINGE IVFLUSH (02:24)
[2022-08-07] MEDS: Albuterol/Iprat 2.5/0.5MG 3 ML AMPUL.NEB INHALE ×3 (04:24→10:47)
[2022-08-07 07:40] LABS: Creatinine Clr Calc Pharmacy 55.7; Estimated Glomerular Filt Rate 54
[2022-08-07 07:48] LABS: Anion Gap 20 (12-20); Blood Urea Nitrogen 24 mg/dL (9-16); Calcium 9.3 mg/dL (8.4-10.2); Carbon Dioxide 20 mmol/L (22-29); Chloride 106 mmol/L (96-108); Creatinine Clr Calc Pharmacy 54.5; Estimated Glomerular Filt Rate 52; Glucose Random 150 mg/dL (60-115); Potassium 4.3 mmol/L (3.3-5.1); Sodium 142 mmol/L (135-145)
[2022-08-07] MEDS: Insulin Glargine,Hum.rec.anlog 100 UNIT/ML 10 ML VIAL 15 UNIT SUBCUT (10:07)
[2022-08-07] MEDS: Nicotine 21 MG PATCH.TD24 TRANSDERMA (10:08)
[2022-08-07] MEDS: Metoclopramide HCl 10 MG TABLET PO (10:09)
[2022-08-07] MEDS: guaiFENesin LA 600 MG TAB.ER.12H PO (10:09)
[2022-08-07] MEDS: Metoprolol Succinate ER 100 MG TAB.ER.24H PO (10:09)
[2022-08-07] MEDS: lisinopriL 20 MG TABLET PO (10:09)
[2022-08-07] MEDS: predniSONE 20 MG TABLET 40 MG PO (10:09)
[2022-08-07] MEDS: Escitalopram Oxalate 10 MG TABLET PO (10:09)
[2022-08-07] MEDS: Omeprazole 40 MG CAPSULE.DR PO (10:09)
[2022-08-07] MEDS: Ferrous Sulfate 324 MG TABLET.DR PO (10:10)
[2022-08-07] MEDS: Gabapentin 300 MG CAPSULE PO (10:10)
[2022-08-07] MEDS: Atorvastatin Calcium 40 MG TABLET PO (10:10)
[2022-08-07] MEDS: Magnesium Oxide 400 MG TABLET PO (10:10)
[2022-08-07] MEDS: amLODIPine Besylate 10 MG TABLET PO (10:10)
--- NOTE | 2022-08-07 11:51 | MHC.CM.PN ---
Patient has been medically cleared for dc to home today, self care.
--- NOTE | 2022-08-07 11:51 | PM.DS ---
DS: Providers Provider Date of Service: 08/07/22 Date of admission: 07/31/22 23:49 Primary care physician: Zari Henry MD Consults: 07/31/22 23:48 Consult to Cardiology Routine Consulting Provider: Sadiq Rivera Reason for consultation: pulm edema Consult to Pulmonology Routine Consulting Provider: Erika Rodriguez Reason for consultation: Hypoxia 08/01/22 06:46 Consult to Infectious Diseases Routine Consulting Provider: Loida Ma Reason for consultation: multifocal pna 08/05/22 10:15 Consult to Gastroenterology Routine Consulting Provider: Yevgeniy Chan Reason for consultation: +ve occult, acute on chronic blood loss anemia DS: Diagnosis Discharge Diagnosis (1) Acute on chronic anemia: Status: Acute (2) Hyperglycemia due to type 2 diabetes mellitus: Status: Acute (3) Acute respiratory failure with hypoxia: Status: Acute (4) Acute kidney injury: Status: Acute (5) YARELIS (obstructive sleep apnea): Status: Acute (6) Pneumonia: Status: Acute (7) Congestive heart failure: Status: Acute (8) COPD exacerbation: Status: Acute DS: Summary Hospital Course Hospital Course: Admission note HPI 47-year-old male with a past medical history of hypertension, hyperlipidemia, diabetes, COPD, anxiety, depression presented to the hospital today with a chief complaint of shortness of breath.? Patient mentioned that he was recently admitted to the [facility], discharged on last Monday, presented with shortness of breath and was given IV diuresis briefly at the per the patient. Patient mentioned that he was recommended outpatient sleep studies which has has done; today he felt shortness of breath which worsens on lying flat and on exertion.? Patient mentions that later in the evening he went to his mom's house, did not feel well, generally weak, laid down on the bed and felt shortness of breath; subsequently came to the ER for further evaluation.? Mentions that he has been having mild dry cough.? Reports posttussive chest discomfort.? Denies any GI symptoms.? Review of all other systems is negative except mentioned above Patient mentions that he has COVID-19 vaccinated Per ER team patient on presentation noted to be saturating 84%, appears to be in mild respiratory distress, placed on BiPAP briefly, chest x-ray showed pulmonary congestion/multifocal pneumonia-given IV Lasix and antibiotics.? After the Lasix patient respiratory status slightly improved.? Admitted to the hospital for further management.? EKG was nonischemic. Hospital course The patient was admitted to the hospital for evaluation of acute hypoxic respiratory failure secondary to multilobar pneumonia, YARELIS, CHF and COPD exacerbation. Status x-ray was consistent with infiltrate and effusion. Evaluated by pulmonology team, Infectious Disease who recommended treatment with broad-spectrum antibiotic of Zosyn and vancomycin and wean oxygen down as tolerated. Received IV steroids and bronchodilator nebulizers. Blood cultures remain negative during the hospital stay as the patient was wean down the oxygen supplement to 3 L with ambulation at the day of discharge. Repeated x-ray showed decreased effusion and infiltrates. The patient had a CPAP titration study at [facility]. supposed to start CPAP after discharge and follow with Dr. Machado. Echo was done showing normal LV function with restrictive filling pattern. Treated with IV Lasix with good response. Will be discharged on 20 mg p.o. Lasix to follow-up with his primary. Noted to have acute on chronic anemia with Hemoglobin dropped to 8.8 from baseline of? above 12 before January 2022. Has positive occult blood , no reported bleeding. GI evaluated the patient and recommended No need further evaluation needed and to follow outpatient once medically stable for endoscopies. Started on iron supplement. To hold aspirin for the time being. Kidney function was noted to be elevated at time of presentation. Lisinopril was held with improvement of creatinine to 1.4 at time of discharge which is around his baseline. Noted to have hyperglycemia secondary to diabetes as a result of steroid usage. Received Lantus to while inpatient. Will be discharged home on his home dose of insulin. Blood pressure significantly elevated during the hospital stay from changing medications, stress and holding lisinopril. Amlodipine was increased to 10 mg. Lisinopril was restarted on lower dose with good response as blood pressures at the day of discharge of 140/90. Start low-dose Lasix for now Continue Augmentin and doxycycline for 3 more days Continue to wean oxygen down as tolerated at home Use nebulizer 3-4 times daily for the next week then as needed Increase amlodipine to 10 mg daily and monitor blood pressure at home Use nicotine patches and avoid smoking Take iron pills daily and To follow-up with Gastroenterology as outpatient for endoscopy Use your CPAP at night To follow-up with PCP within the next week. Time Spent with Patient Time attestation: Total time spent providing and/or coordinating discharge services: Discharge coordination time: Greater than 30 minutes Quality: Safe Use of Opioids Does Pt have an Active Cancer Diagnosis on the Problem List?: No Quality: Stroke Does the patient have a stroke diagnosis?: No Physical Exam Vital Signs: Vital Signs: Last Vital Signs Temp 98.4 F 08/07/22 11:09 Pulse 109 H 08/07/22 11:09 Resp 20 08/07/22 11:09 BP 142/92 H 08/07/22 11:09 Pulse Ox 96 08/07/22 11:09 O2 Del Method 08/07/22 11:09 O2 Flow Rate 3 08/07/22 11:09 FiO2 70 08/02/22 10:23 Oxygen Flow Rate 15 07/31/22 22:42 BMI result Body Mass Index 25.2 Const: Other: Constitutional : Alert, oriented, not in distress Neck : Normal inspection, Supple Cardiovascular : RRR, no JVP, no lower extremity edema Respiratory : Fair l bilateral air entry, no crackles, no wheezes, on oxygen supplement Gastrointestinal: soft, lax, Normal bowel sounds, Non tender Skin : Warm, Dry Neurological : Alert & oriented x3, No focal deficit DS: Data Data Completed and Pending Labs on day of discharge: Laboratory Results - last 24 hr 08/06/22 08/06/22 08/06/22 11:12 16:07 20:57 Sodium Potassium Chloride Carbon Dioxide Anion Gap BUN Creatinine Estim Creat Clear Calc Estimated GFR POC Glucose 270 H 243 H 335 H Random Glucose Calcium 08/07/22 08/07/22 08/07/22 06:32 06:32 07:36 Sodium 142 Potassium 4.3 Chloride 106 Carbon Dioxide 20 L Anion Gap 20 BUN 24 H Creatinine 1.41 H 1.44 H Estim Creat Clear Calc 55.7 54.5 Estimated GFR 54 52 POC Glucose 144 H Random Glucose 150 H D Calcium 9.3 D 08/07/22 11:07 Sodium Potassium Chloride Carbon Dioxide Anion Gap BUN Creatinine Estim Creat Clear Calc Estimated GFR POC Glucose 416 H* Random Glucose Calcium Imaging Chest x-ray: Radiologist's impression: ITS Impressions Chest X-Ray 07/31/22 21:25 IMPRESSION: *Multifocal airspace disease of the lungs with findings most pronounced in the right upper pulmonary lobe and left middle lung zone. Findings are suspicious for infection. *Diffuse vascular indistinctness and diffuse pulmonary reticular opacities with developing bibasilar Lamont B line. Findings are suspicious for moderate interstitial pulmonary edema. *Small bilateral pleural effusions. Chest X-Ray 08/03/22 10:18 IMPRESSION: -Bilateral medial basilar opacities increased. -Small bibasilar effusions slightly increased. -Right upper lobe infiltrate decreased. Left mid zone opacities stable. Chest X-Ray 08/04/22 04:48 IMPRESSION: Decreased small right pleural effusion. Similar appearance of multifocal patchy bilateral airspace opacities compared to prior. Discharge Plan Discharge Anticipated Discharge Date/Time: 08/07/22 10:40 Patient Disposition: Home, Self-Care Discharge Diagnosis: Acute hypoxic respiratory failure Pneumonia, heart failure, COPD exacerbation Acute on chronic anemia Acute kidney injury Referrals: Zari Henry MD [Primary Care Provider] - 1 Week Discharge Medications: New ipratropium-albuterol 0.5 mg-3 mg(2.5 mg base)/3 mL Solution For Nebulization 3 ml inhalation Q8H 30 Days Qty: 180 1RF amlodipine 10 mg Tablet 10 mg PO DAILY 30 Days Qty: 30 0RF Protocol: Hold for SBP< HOLD for SBP < : 90 nicotine 21 mg/24 hr Patch 24 Hour 21 mg transdermal DAILY 30 Days Qty: 28 5RF ferrous sulfate 324 mg (65 mg iron) Tablet,Delayed Release (Dr/Ec) 324 mg PO DAILY 30 Days Qty: 30 0RF amoxicillin-pot clavulanate 875-125 mg tablet 1 tab PO BID Qty: 7 0RF furosemide 20 mg tablet 20 mg PO QAM Qty: 30 0RF doxycycline monohydrate 100 mg capsule 100 mg PO BID Qty: 10 0RF Continued atorvastatin 40 mg tablet 1 tab PO DAILY trazodone 50 mg tablet 1 - 2 tab PO BEDTIME metoprolol succinate 100 mg tablet extended release 24 hr 1 tab PO DAILY omeprazole 40 mg capsule,delayed release(DR/EC) 1 cap PO DAILY aspirin 81 mg tablet,delayed release (DR/EC) 1 tab PO DAILY gabapentin 300 mg capsule 1 cap PO TID insulin lispro 100 unit/mL solution See Rx Instructions .ROUTE .COMPLEX Rx Instructions: insulin pump; use up to 100 units daily albuterol sulfate 90 mcg/actuation HFA aerosol inhaler 2 puff INHALATION Q6H lisinopril 40 mg tablet 1 tab PO DAILY metoclopramide HCl 10 mg tablet 1 tab PO QID escitalopram oxalate 10 mg tablet 1 tab PO DAILY Spiriva Respimat 1.25 mcg/actuation mist 2 puff INHALATION DAILY Discontinued amlodipine 5 mg tablet 1 tab PO DAILY Discharge Orders: Discharge Order (Routine); Ordered 08/07/22 Ordered By: Suzi Wilcox Diet: Advance to usual diet Activity on Discharge: As tolerated Stand Alone Forms: Patient Portal Discharge page Other Ambulatory Orders: Basic Metabolic Panel (Routine) Timeframe: 5 Days Facility: [facility] - Location: Laboratory Ordered By: Suzi Wilcox Care Plan Goals: Read below Health Concerns: Read below Plan of Treatment: Read below Assessment: You were admitted to the hospital for evaluation of difficulty breathing. Found to be in acute hypoxic failure secondary to pneumonia, heart failure and COPD exacerbation. Treated with IV antibiotics, steroids, diuretics and steroid therapy with improvement over the course of hospital stay as you were evaluated by pulmonology. Oxygen was weaned down to 3 L with activity. Evaluated by Dr. Chan from Gastroenterology for drop in your hemoglobin level. Noted to have kidney injury that improved back to your baseline. Blood pressure significantly elevated requiring higher doses of amlodipine. Start low-dose Lasix for now Continue Augmentin and doxycycline for 3 more days Continue to wean oxygen down as tolerated at home Use nebulizer 3-4 times daily for the next week then as needed Increase amlodipine to 10 mg daily and monitor blood pressure at home Use nicotine patches and avoid smoking Hold aspirin , Take iron pills daily and To follow-up with Gastroenterology as outpatient for endoscopy Use your CPAP at night To follow-up with PCP within the next week.
[2022-08-07] MEDS: Insulin Lispro 100 UNIT/ML 3 ML VIAL SUBCUT ×2 (12:05)
[2022-08-07] MEDS: Amoxicillin/Potassium Clav 875 MG TABLET PO (12:05)
[2022-08-08 16:16] LABS: Legionella Ag Urine Not Detected (Not Detected)
== END 2022-08-07 13:05 | disposition home or self-care (01) | DRG 139 ==
LOC: HO.ED 21:08 → HO.EDOVER 08-01 00:03 → HO.IMC 08-02 19:39
PROVIDERS: Internal Medicine; Admitting Provider Hospitalist; Emergency Provider Internal Medicine; PCP Internal Medicine; Visit Provider Student in an Organized Health Care Education/Training Program
DX: J18.9 Pneumonia, unspecified organism (principal); I50.33 Acute on chronic diastolic (congestive) heart failure; N17.9 Acute kidney failure, unspecified; J44.0 Chronic obstructive pulmonary disease with (acute) lower respiratory infection; E11.51 Type 2 diabetes mellitus with diabetic peripheral angiopathy without gangrene; E11.65 Type 2 diabetes mellitus with hyperglycemia; E11.42 Type 2 diabetes mellitus with diabetic polyneuropathy; D50.0 Iron deficiency anemia secondary to blood loss (chronic); I11.0 Hypertensive heart disease with heart failure; J44.1 Chronic obstructive pulmonary disease with (acute) exacerbation; G47.33 Obstructive sleep apnea (adult) (pediatric); F41.9 Anxiety disorder, unspecified; R19.5 Other fecal abnormalities; E78.5 Hyperlipidemia, unspecified; F17.210 Nicotine dependence, cigarettes, uncomplicated; Z20.822 Contact with and (suspected) exposure to COVID-19; Z99.81 Dependence on supplemental oxygen; Z71.6 Tobacco abuse counseling; Z88.8 Allergy status to other drugs, medicaments and biological substances; Z79.82 Long term (current) use of aspirin; Z79.899 Other long term (current) drug therapy
CPT/HCPCS: 36415; 36600; 71045; 71046; 71250; 80048; 80053; 80076; 80202; 81001; 82077; 82565; 82746; 82803; 82947; 83540; 83605; 83735; 83880; 84145; 84484; 85025; 85027; 85379; 85610; 87040; 87389; 87449; 87502; 87633; 87635; 93005; 93306; 94640; 94660; 96365; 96375; 97110; 97162; 99285; J0696; J1650; J1940; J2270; J2405; J2543; J2920; J2930; J3370; J3475

== ENCOUNTER 2022-08-11 08:50 | Inpatient (IN) | payer OTHER, SELFPAY ==
[2022-08-11] VITALS (14 sets, daily range): BP systolic 154–202; BP diastolic 72–100; PULSE 89–108; RESP 16–22; TEMP 36.9–37.1; O2SAT 90–95; BMI 24.2
--- NOTE | ~2022-08-11 | XR_ITS ---
EXAMINATION: XR CHEST CLINICAL INFORMATION: Shortness of breath COMPARISON: 08/04/2022 TECHNIQUE: Frontal view of the chest was obtained. FINDINGS: Diffuse bilateral patchy infiltrates are seen with some improved aeration at the lung bases. Heart and pulmonary vessels normal. XR/XR chest 1V IMPRESSION: Slight improvement.
--- NOTE | ~2022-08-11 | CT_ITS ---
EXAMINATION: CT CHEST WITHOUT CONTRAST CLINICAL INFORMATION: Dyspnea, hypoxia. Recent treatment for pneumonia. COMPARISON: None TECHNIQUE: Multidetector volumetric CT imaging of the chest was done. Axial MIP volume rendering provided. Sagittal and coronal reformatted images were obtained. This CT examination was performed using dose optimization techniques as appropriate, variously including the following: *Automated exposure control *Adjustment of mA and/or kV according to patient size (this includes techniques or standardized protocols for targeted exams where dose is matched to indication/reason for exam; i.e. extremities or head) *Use of iterative reconstruction technique DLP: 237 mGy-cm FINDINGS: BULKER: The lungs are expanded with bandlike atelectasis and bilateral midlung regions. LUNGS: With the lungs are well-expanded with patchy groundglass opacity left upper lobe, left lower lobe superior segment and chronic bilateral parenchymal atelectasis with infiltrates. There is bilateral lower lobe air bronchograms seen. MEDIASTINUM: Thyroid lobes are symmetrical and normal. The central trachea and the bronchi widely patent there are reactive enlarged lymph nodes in the left para-aortic, pretracheal and precarinal space. The largest lymph node pretracheal space measures 1.5 cm in maximum length. Heart size and the great vessels are normal caliber. CORONARY ARTERY CALCIFICATION: None visualized on this study. PLEURA: There are moderate bilateral pleural effusions left slightly greater than right. AXILLA: No lymphadenopathy. UPPER ABDOMEN: Visualized liver, spleen and adrenal glands are unremarkable. OSSEOUS STRUCTURES: No aggressive lytic or sclerotic process seen. CT/CT chest wo IV con IMPRESSION: Bilateral lower lobe patchy consolidation with air bronchograms resolving infiltrate/atelectasis. There is groundglass opacity left upper lobe and superior segment left lower lobe likely resolving infiltrates as well. There are moderate bilateral pleural effusions left greater than right. Reactive lymph nodes in the mediastinum as described above. Fleischner guidelines were followed.
--- NOTE | 2022-08-11 09:11 | ECG_ITS ---
Test Reason : SOB Blood Pressure : / mmHG Vent. Rate : 104 BPM Atrial Rate : 104 BPM P-R Int : 116 ms QRS Dur : 074 ms QT Int : 334 ms P-R-T Axes : 059 049 053 degrees QTc Int : 439 ms Sinus tachycardia Otherwise normal ECG When compared with ECG of 31-JUL-2022 23:02, Nonspecific T wave abnormality no longer evident in Lateral leads Referred By: Elina Aguirre Electronically Signed By:YULISSA MUNROE MD
--- NOTE | 2022-08-11 09:29 | ED_ITS ---
HPI - SOB/Dyspnea General Chief Complaint: Dyspnea Stated Complaint: SOB,COUGH Time Seen by Provider: 08/11/22 09:11 Source: patient Mode of arrival: EMS History of Present Illness HPI Narrative: 47-year-old male with history of CHF, YARELIS, COPD who presents via EMS with increasing shortness of breath since yesterday at 15:00. Patient increased his nasal cannula from 2 L to 4 L on his own but states he did not receive any relief and has not taken his medications today. He was released from the hospital on Monday and had been diagnosed with pneumonia as well as CHF at that time Related Data Home Medications Medication Instructions Recorded Confirmed albuterol sulfate 90 mcg/actuation 2 puff inhalation Q6H 08/01/22 08/11/22 aerosol inhaler aspirin 81 mg tablet,delayed 1 tab PO DAILY 08/01/22 08/11/22 release atorvastatin 40 mg tablet 1 tab PO DAILY 08/01/22 08/11/22 escitalopram oxalate 10 mg tablet 1 tab PO DAILY 08/01/22 08/11/22 gabapentin 300 mg capsule 1 cap PO TID 08/01/22 08/11/22 insulin lispro 100 unit/mL See Rx Instructions .Route .COMPLEX 08/01/22 08/11/22 subcutaneous solution lisinopril 40 mg tablet 1 tab PO DAILY 08/01/22 08/11/22 metoclopramide HCl 10 mg tablet 1 tab PO QID 08/01/22 08/11/22 metoprolol succinate 100 mg 1 tab PO DAILY 08/01/22 08/11/22 tablet,extended release 24 hr omeprazole 40 mg capsule,delayed 1 cap PO DAILY 08/01/22 08/11/22 release tiotropium bromide 1.25 2 puff inhalation DAILY 08/01/22 08/11/22 mcg/actuation mist for inhalation (Spiriva Respimat) trazodone 50 mg tablet 1 - 2 tab PO BEDTIME 08/01/22 08/11/22 Previous Rx's Medication Instructions Recorded amlodipine 10 mg tablet 10 mg PO DAILY 30 days #30 tabs 08/07/22 doxycycline monohydrate 100 mg 100 mg PO BID #10 caps 08/07/22 capsule ferrous sulfate 324 mg (65 mg 324 mg PO DAILY 30 days #30 tabs 08/07/22 iron) tablet,delayed release furosemide 20 mg tablet 20 mg PO QAM #30 tabs 08/07/22 ipratropium 0.5 mg-albuterol 3 mg 3 ml inhalation Q8H 30 days #180 mL 08/07/22 (2.5 mg base)/3 mL nebulization soln nicotine 21 mg/24 hr daily 21 mg transdermal DAILY 30 days 08/07/22 transdermal patch #28 ea Allergies Allergy/AdvReac Type Severity Reaction Status Date / Time dulaglutide [From Trulicity] Allergy Unknown Verified 01/02/22 21:08 metformin [METFORMIN] AdvReac Mild DIARRHEA, Verified 09/22/20 13:18 nausea and vomiting Review of Systems Review of Systems: Pertinent positives and negatives as stated in HPI 10 point review of systems is otherwise negative. PMFSH Past Medical History Source: nursing notes reviewed Medical History Anxiety Asthma Diabetes HLD (hyperlipidemia) HTN (hypertension) Hypercholesteremia YARELIS (obstructive sleep apnea) PAD (peripheral artery disease) Surgical History S/P angiogram of extremity Social History Social History Alcohol intake: current Alcohol intake frequency: a few times a month Patient Tobacco Use Status: Current everyday Tobacco user Tobacco use type: Cigarette Cigarettes Per Day: 10 Years Smoked: 29 Second Hand Smoke Exposure: Yes Use of substances other than those prescribed or required for medical reasons: No Substance Use Type: Marijuana Advance Directives: Yes Advance Directives on File: Yes Advance Directives Date on File: 06/21/21 service: No Current occupational status: unemployed Physical Exam Vital Signs: Vital Signs: Last Vital Signs Temp 98.8 F 08/11/22 09:05 Pulse 102 H 08/11/22 13:06 Resp 18 08/11/22 13:06 BP 178/97 H 08/11/22 13:06 Pulse Ox 95 08/11/22 13:06 O2 Del Method 08/11/22 13:06 O2 Flow Rate 3 08/11/22 09:09 FiO2 28 08/11/22 13:06 Oxygen Flow Rate 3 08/11/22 09:05 BMI result Body Mass Index 24.2 VITAL SIGNS: Reviewed. GENERAL: Well developed, well nourished, in no acute distress. HEAD: Normocephalic/atraumatic EYES: PERRLA, EOMI EARS: Ext canals without abnormality NOSE: Nares patent bilateral OROPHARYNX: no oral lesions noted, posterior pharynx clear NECK: Supple, no adenopathy LUNGS: Bibasilar decrease in breath sounds, crackles/rales noted in left lung jimenez, tachypnea is present, nasal cannula is in place SpO2<94> on 4 L nasal cannula CARDIOVASCULAR: Regular rate and rhythm without noted murmurs, no JVD or lower extremity edema. ABDOMEN: Soft, non-tender, some distention with bowel sounds, ecchymosis noted to abdominal wall which is consistent with prior admission and DVT prophylaxis injections. MUSCULOSKELETAL: No tenderness, deformities, or effusions noted on gross inspection. EXTREMITIES: No cyanosis, clubbing or edema. SKIN: Inspection of the skin reveals no rashes NEUROLOGIC: Alert and oriented x 4. Strength and sensation to light touch were grossly intact x 4. Course Course Course Narrative: 47-year-old male with history and clinical presentation consistent with acute respiratory failure with hypoxia and increased shortness of breath which may be a combination of underlying pneumonia/CHF/COPD. Will rule out the possibility of COPD but feel that this is more consistent with patient's known underlying pneumonia and CHF. Patient was recently discharged on steroids as well as antibiotics for a no pneumonia, so I am attributing this leukocytosis to that. The use of the BiPAP machine is for suspected CHF exacerbation as patient is receiving Lasix as well. At this time although patient did receive albuterol treatments I do not suspect COPD exacerbation. COVID and influenza testing is negative. 1249: On re-evaluation, patient is oxygenating at 94 95% and will titrate off of the BiPAP, he is feeling better and has had a good response to the Lasix. Patient is titrated off the BiPAP, is oxygenating much better. He is now on nasal cannula and I discussed case with the inpatient hospitalist who will admit the patient. MDM - SOB/Dyspnea Lab Data Result diagrams: 08/11/22 09:59 08/11/22 09:59 Labs: Lab Results 08/11/22 08/11/22 08/11/22 Range/Units 09:58 09:59 09:59 WBC 18.1 H (4.8-10.8) X10*3/uL RBC 3.83 L (4.60-5.80) X10*6/uL Hgb 10.2 L (14.0-18.0) g/dl Hct 32.3 L (42.0-52.0) % MCV 84.3 (80.0-98.0) fL MCH 26.6 L (27.0-33.0) pg MCHC 31.6 (31.0-36.0) g/dl RDW 16.0 (11.0-16.0) % Plt Count 415 H (160-400) X10*3/uL MPV 10.0 (9.4-12.4) fL Immature Gran % (Auto) 0.6 H (0.0-0.4) % Neut % (Auto) 80.0 H (45-73) % Lymph % (Auto) 11.9 L (20-40) % Simpson % (Auto) 5.3 (2-11) % Eos % (Auto) 2.0 (0-4) % Baso % (Auto) 0.2 (0-2) % Lymph # (Auto) 2.2 (1.2-4.9) X10*3/uL Simpson # (Auto) 1.0 (0.1-1.2) X10*3/uL Eos # (Auto) 0.4 (0.0-0.4) X10*3/uL Baso # (Auto) 0.0 (0.0-0.2) X10*3/uL Abs Immat Gran (auto) 0.10 H (0.00-0.03) X10*3/uL Absolute Neuts (auto) 14.5 H (2.0-8.3) x10*3/uL Absolute Nucleated RBC 0.000 (0.0-0.012) X10*3/uL Nucleated RBC % (auto) 0.0 (0.0-0.2) /100WBC PT 12.2 (10.0-13.1) SEC INR 1.1 (0.9-1.1) VBG pH (7.32-7.43) VBG pCO2 mmHg VBG pO2 mmHg VBG HCO3 (22-26) mmol/L VBG O2 Saturation % VBG Base Excess mmol/L Sodium 140 (135-145) mmol/L Potassium 4.8 (3.3-5.1) mmol/L Chloride 105 (96-108) mmol/L Carbon Dioxide 22 (22-29) mmol/L Anion Gap 18 (12-20) BUN 16 (9-16) mg/dL Creatinine 1.56 H (0.5-1.4) mg/dL Estim Creat Clear Calc 50.3 Estimated GFR 48 Random Glucose 220 H D (60-115) mg/dL Lactic Acid (0.5-2.0) mmol/L Calcium 9.0 (8.4-10.2) mg/dL Magnesium 1.4 L* (1.6-2.6) mg/dL Total Bilirubin 0.4 (0.0-1.0) mg/dL AST 14 (5-37) U/L ALT 25 (0-40) U/L Alkaline Phosphatase 98 (39-117) U/L Troponin I High Sens (<3.5-35.0) ng/L B-Natriuretic Peptide (<100) pg/mL Total Protein 6.5 (6.5-8.0) g/dL Albumin 3.5 (3.5-5.0) g/dL Urine Color Urine Appearance Urine pH (5.0-9.0) Ur Specific [place] (1.005-1.025) Urine Protein (Neg-Trace) mg/dL Urine Glucose (UA) (Negative) mg/dL Urine Ketones (Negative) mg/dL Urine Blood (Negative) Urine Nitrite (Negative) Ur Leukocyte Esterase (Negative) Urine RBC (0-2) /HPF Urine WBC (0-5) /HPF Ur Squamous Epith Cells (0-2) /HPF Urine Bacteria (None Seen) Hyaline Casts (0-2) /LPF Ethyl Alcohol mg/dL COVID-19 (XANDER) (Negative) COVID-19 Clin Com Influenza Type A (MAYELIN) (Negative) Influenza Type B (MAYELIN) (Negative) Influenza A & B Note 08/11/22 08/11/22 08/11/22 Range/Units 09:59 09:59 09:59 WBC (4.8-10.8) X10*3/uL RBC (4.60-5.80) X10*6/uL Hgb (14.0-18.0) g/dl Hct (42.0-52.0) % MCV (80.0-98.0) fL MCH (27.0-33.0) pg MCHC (31.0-36.0) g/dl RDW (11.0-16.0) % Plt Count (160-400) X10*3/uL MPV (9.4-12.4) fL Immature Gran % (Auto) (0.0-0.4) % Neut % (Auto) (45-73) % Lymph % (Auto) (20-40) % Simpson % (Auto) (2-11) % Eos % (Auto) (0-4) % Baso % (Auto) (0-2) % Lymph # (Auto) (1.2-4.9) X10*3/uL Simpson # (Auto) (0.1-1.2) X10*3/uL Eos # (Auto) (0.0-0.4) X10*3/uL Baso # (Auto) (0.0-0.2) X10*3/uL Abs Immat Gran (auto) (0.00-0.03) X10*3/uL Absolute Neuts (auto) (2.0-8.3) x10*3/uL Absolute Nucleated RBC (0.0-0.012) X10*3/uL Nucleated RBC % (auto) (0.0-0.2) /100WBC PT (10.0-13.1) SEC INR (0.9-1.1) VBG pH (7.32-7.43) VBG pCO2 mmHg VBG pO2 mmHg VBG HCO3 (22-26) mmol/L VBG O2 Saturation % VBG Base Excess mmol/L Sodium (135-145) mmol/L Potassium (3.3-5.1) mmol/L Chloride (96-108) mmol/L Carbon Dioxide (22-29) mmol/L Anion Gap (12-20) BUN (9-16) mg/dL Creatinine (0.5-1.4) mg/dL Estim Creat Clear Calc Estimated GFR Random Glucose (60-115) mg/dL Lactic Acid 1.7 (0.5-2.0) mmol/L Calcium (8.4-10.2) mg/dL Magnesium (1.6-2.6) mg/dL Total Bilirubin (0.0-1.0) mg/dL AST (5-37) U/L ALT (0-40) U/L Alkaline Phosphatase (39-117) U/L Troponin I High Sens 11.6 (<3.5-35.0) ng/L B-Natriuretic Peptide 471 H (<100) pg/mL Total Protein (6.5-8.0) g/dL Albumin (3.5-5.0) g/dL Urine Color Urine Appearance Urine pH (5.0-9.0) Ur Specific [place] (1.005-1.025) Urine Protein (Neg-Trace) mg/dL Urine Glucose (UA) (Negative) mg/dL Urine Ketones (Negative) mg/dL Urine Blood (Negative) Urine Nitrite (Negative) Ur Leukocyte Esterase (Negative) Urine RBC (0-2) /HPF Urine WBC (0-5) /HPF Ur Squamous Epith Cells (0-2) /HPF Urine Bacteria (None Seen) Hyaline Casts (0-2) /LPF Ethyl Alcohol mg/dL COVID-19 (XANDER) (Negative) COVID-19 Clin Com Influenza Type A (MAYELIN) Negative (Negative) Influenza Type B (MAYELIN) Negative (Negative) Influenza A & B Note See Note 08/11/22 08/11/22 08/11/22 Range/Units 09:59 09:59 10:04 WBC (4.8-10.8) X10*3/uL RBC (4.60-5.80) X10*6/uL Hgb (14.0-18.0) g/dl Hct (42.0-52.0) % MCV (80.0-98.0) fL MCH (27.0-33.0) pg MCHC (31.0-36.0) g/dl RDW (11.0-16.0) % Plt Count (160-400) X10*3/uL MPV (9.4-12.4) fL Immature Gran % (Auto) (0.0-0.4) % Neut % (Auto) (45-73) % Lymph % (Auto) (20-40) % Simpson % (Auto) (2-11) % Eos % (Auto) (0-4) % Baso % (Auto) (0-2) % Lymph # (Auto) (1.2-4.9) X10*3/uL [place] # (Auto) (0.1-1.2) X10*3/uL Eos # (Auto) (0.0-0.4) X10*3/uL Baso # (Auto) (0.0-0.2) X10*3/uL Abs Immat Gran (auto) (0.00-0.03) X10*3/uL Absolute Neuts (auto) (2.0-8.3) x10*3/uL Absolute Nucleated RBC (0.0-0.012) X10*3/uL Nucleated RBC % (auto) (0.0-0.2) /100WBC PT (10.0-13.1) SEC INR (0.9-1.1) VBG pH 7.47 H (7.32-7.43) VBG pCO2 30 mmHg VBG pO2 68 mmHg VBG HCO3 22 (22-26) mmol/L VBG O2 Saturation 92.0 % VBG Base Excess -0.5 mmol/L Sodium (135-145) mmol/L Potassium (3.3-5.1) mmol/L Chloride (96-108) mmol/L Carbon Dioxide (22-29) mmol/L Anion Gap (12-20) BUN (9-16) mg/dL Creatinine (0.5-1.4) mg/dL Estim Creat Clear Calc Estimated GFR Random Glucose (60-115) mg/dL Lactic Acid (0.5-2.0) mmol/L Calcium (8.4-10.2) mg/dL Magnesium (1.6-2.6) mg/dL Total Bilirubin (0.0-1.0) mg/dL AST (5-37) U/L ALT (0-40) U/L Alkaline Phosphatase (39-117) U/L Troponin I High Sens (<3.5-35.0) ng/L B-Natriuretic Peptide (<100) pg/mL Total Protein (6.5-8.0) g/dL Albumin (3.5-5.0) g/dL Urine Color Urine Appearance Urine pH (5.0-9.0) Ur Specific [place] (1.005-1.025) Urine Protein (Neg-Trace) mg/dL Urine Glucose (UA) (Negative) mg/dL Urine Ketones (Negative) mg/dL Urine Blood (Negative) Urine Nitrite (Negative) Ur Leukocyte Esterase (Negative) Urine RBC (0-2) /HPF Urine WBC (0-5) /HPF Ur Squamous Epith Cells (0-2) /HPF Urine Bacteria (None Seen) Hyaline Casts (0-2) /LPF Ethyl Alcohol < 10 mg/dL COVID-19 (XANDER) Negative (Negative) COVID-19 Clin Com See Note Influenza Type A (MAYELIN) (Negative) Influenza Type B (MAYELIN) (Negative) Influenza A & B Note 08/11/22 Range/Units 11:52 WBC (4.8-10.8) X10*3/uL RBC (4.60-5.80) X10*6/uL Hgb (14.0-18.0) g/dl Hct (42.0-52.0) % MCV (80.0-98.0) fL MCH (27.0-33.0) pg MCHC (31.0-36.0) g/dl RDW (11.0-16.0) % Plt Count (160-400) X10*3/uL MPV (9.4-12.4) fL Immature Gran % (Auto) (0.0-0.4) % Neut % (Auto) (45-73) % Lymph % (Auto) (20-40) % Simpson % (Auto) (2-11) % Eos % (Auto) (0-4) % Baso % (Auto) (0-2) % Lymph # (Auto) (1.2-4.9) X10*3/uL [place] # (Auto) (0.1-1.2) X10*3/uL Eos # (Auto) (0.0-0.4) X10*3/uL Baso # (Auto) (0.0-0.2) X10*3/uL Abs Immat Gran (auto) (0.00-0.03) X10*3/uL Absolute Neuts (auto) (2.0-8.3) x10*3/uL Absolute Nucleated RBC (0.0-0.012) X10*3/uL Nucleated RBC % (auto) (0.0-0.2) /100WBC PT (10.0-13.1) SEC INR (0.9-1.1) VBG pH (7.32-7.43) VBG pCO2 mmHg VBG pO2 mmHg VBG HCO3 (22-26) mmol/L VBG O2 Saturation % VBG Base Excess mmol/L Sodium (135-145) mmol/L Potassium (3.3-5.1) mmol/L Chloride (96-108) mmol/L Carbon Dioxide (22-29) mmol/L Anion Gap (12-20) BUN (9-16) mg/dL Creatinine (0.5-1.4) mg/dL Estim Creat Clear Calc Estimated GFR Random Glucose (60-115) mg/dL Lactic Acid (0.5-2.0) mmol/L Calcium (8.4-10.2) mg/dL Magnesium (1.6-2.6) mg/dL Total Bilirubin (0.0-1.0) mg/dL AST (5-37) U/L ALT (0-40) U/L Alkaline Phosphatase (39-117) U/L Troponin I High Sens (<3.5-35.0) ng/L B-Natriuretic Peptide (<100) pg/mL Total Protein (6.5-8.0) g/dL Albumin (3.5-5.0) g/dL Urine Color Yellow Urine Appearance Clear Urine pH 8.0 (5.0-9.0) Ur Specific [place] 1.010 (1.005-1.025) Urine Protein 100 (2+) H (Neg-Trace) mg/dL Urine Glucose (UA) Negative (Negative) mg/dL Urine Ketones Trace (Negative) mg/dL Urine Blood Negative (Negative) Urine Nitrite Negative (Negative) Ur Leukocyte Esterase Negative (Negative) Urine RBC 0-2 (0-2) /HPF Urine WBC 0-5 (0-5) /HPF Ur Squamous Epith Cells 0-2 (0-2) /HPF Urine Bacteria None Seen (None Seen) Hyaline Casts 0-2 (0-2) /LPF Ethyl Alcohol mg/dL COVID-19 (XANDER) (Negative) COVID-19 Clin Com Influenza Type A (MAYELIN) (Negative) Influenza Type B (MAYELIN) (Negative) Influenza A & B Note ECG Data Attestation: I personally reviewed and interpreted this ECG as follows: Prior ECG tracings: available for review Interpretation: Sinus tachycardia, HR-104, no STEMI, NH/QRS/QTC are within normal limits. Critical Care Time Critical Care Time Critical Care Time: Yes Total Critical Care Time: 30 Attestation: I personally attest to this time spent taking care of the patient. Discharge Plan Discharge Clinical Impression: Acute respiratory failure with hypoxia, KELVIN (acute kidney injury), CHF exacerb ation Patient Disposition: Admitted As Inpatient
--- NOTE | 2022-08-11 09:30 | PC.NURSE ---
Pt presents from home with increased cough and SOB since yesterday at 1500. Recently discharged here for CHF and PNA per pt. Home 02 dependent on 2lpm however pt reports increasing 02 to 4lpm since discharge. Mild SOB with rest, occasional non productive cough. LS with crackles to right middle lung field. sat 92% on 4lpm via nc. Receiving updraft at this time. +1-2 pitting edema to b/l LE, more on right.
[2022-08-11] MEDS: Albuterol Sulfate 2.5 MG, Albuterol Sulfate (0.083%) 2.5 MG 5 MG INHALE (09:33)
[2022-08-11 10:06] LABS: MANUAL DIFF FLAG NO
[2022-08-11 10:08] LABS: Basophils Percent Auto 0.2 % (0-2); Eosinophils Absolute Auto 0.4 X10*3/uL (0.0-0.4); Hematocrit 32.3 % (42.0-52.0); Hemoglobin 10.2 g/dl (14.0-18.0); Imm Gran Pct Auto 0.6 % (0.0-0.4); Lymphocytes Absolute Auto 2.2 X10*3/uL (1.2-4.9); Lymphocytes Percent Auto 11.9 % (20-40); Mean Corpuscular HGB Conc 31.6 g/dl (31.0-36.0); Mean Corpuscular Hemoglobin 26.6 pg (27.0-33.0); Mean Corpuscular Volume 84.3 fL (80.0-98.0); Monocytes Percent Auto 5.3 % (2-11); Neutrophils Absolute Auto 14.5 x10*3/uL (2.0-8.3); Platelet Count 415 X10*3/uL (160-400); Red Blood Count 3.83 X10*6/uL (4.60-5.80); White Blood Count 18.1 X10*3/uL (4.8-10.8)
[2022-08-11 10:10] LABS: VBG Base Excess -0.5 mmol/L; VBG HCO3 22 mmol/L (22-26); VBG pCO2 30 mmHg; VBG pH 7.47 (7.32-7.43); VBG pO2 68 mmHg
[2022-08-11 10:12] LABS: Venous Blood Gas Refer to POC result
--- NOTE | 2022-08-11 10:17 | PC.NURSE ---
Pt placed on BiPAP, 02 sats 85% on 4lpm settings 10/5/28% Pt tolerating well. Sinus tach on tele, rate 107
[2022-08-11 10:19] LABS: INTERNATIONAL NORM RATIO 1.1 (0.9-1.1); Prothrombin Time 12.2 SEC (10.0-13.1)
[2022-08-11 10:25] LABS: Lactic Acid 1.7 mmol/L (0.5-2.0)
[2022-08-11 10:26] LABS: COVID-19 Test Negative (Negative); IDNOW Serial# 16C4AD1C; IDNOW Serial# 55D5AD1C; Influenza A Negative (Negative); Influenza B2 Negative (Negative)
[2022-08-11 10:27] LABS: Ethanol < 10 mg/dL
[2022-08-11 10:32] LABS: Alanine Aminotransferase 25 U/L (0-40); Albumin Level 3.5 g/dL (3.5-5.0); Alkaline Phosphatase 98 U/L (39-117); Anion Gap 18 (12-20); Aspartate Amino Transferase 14 U/L (5-37); Bilirubin Total 0.4 mg/dL (0.0-1.0); Blood Urea Nitrogen 16 mg/dL (9-16); Carbon Dioxide 22 mmol/L (22-29); Chloride 105 mmol/L (96-108); Creatinine Clr Calc Pharmacy 50.3; Estimated Glomerular Filt Rate 48; Glucose Random 220 mg/dL (60-115); Magnesium 1.4 mg/dL (1.6-2.6); Potassium 4.8 mmol/L (3.3-5.1); Sodium 140 mmol/L (135-145); Total Protein 6.5 g/dL (6.5-8.0)
[2022-08-11 10:34] LABS: B Type Natriuretic Peptide 471 pg/mL (<100); Troponin-I High Sensitivity 11.6 ng/L (<3.5-35.0)
[2022-08-11] MEDS: Furosemide 100 MG/10 ML VIAL 60 MG IVPUSH (10:53)
[2022-08-11] MEDS: Magnesium Sulfate/D5W 1 GM/100 ML PIGGYBACK IV (10:54)
[2022-08-11 12:04] LABS: Appearance Urine Clear; Color Urine Yellow; Glucose Urine UA Negative (Negative); Leukocyte Esterase Urine Negative (Negative); Nitrite Urine Negative (Negative); UMIC TRIGGER UACC YES; Urine Blood Negative (Negative); Urine Ketones Trace mg/dL (Negative); Urine Protein 100 (2+) mg/dL (Neg-Trace)
[2022-08-11 12:07] LABS: Bacteria Urine None Seen (None Seen); Hyaline Casts Urine 0-2 /LPF (0-2); RBC Urine 0-2 /HPF (0-2); Squamous Epithelial Cell Urine 0-2 /HPF (0-2); WBC Urine 0-5 /HPF (0-5)
--- NOTE | 2022-08-11 12:15 | PHA.MEDREC ---
Pharmacy Consult ? Medication Reconciliation Pharmacy has completed the medication reconciliation. Based on discharge and pharmacy list
--- NOTE | 2022-08-11 15:04 | PM.IMHP ---
History of Present Illness Date of Service: 08/11/22 Attending physician on admission: Garret Cifuentes Chief Complaint: shortness of breath This is a 47 year old male with history of COPD on 3L supplemental oxygen who presents to the emergency department with shortness of breath. Patient was admitted earlier in the month and treated for CHF, COPD and pneumonia. He was discharged with oral antibiotics. He has been having persistent shortness of breath especially with exertion. He reports orthopnea and PND. He denies chest pain or palpitations. Yesterday afternoon his breathing got worse and this persisted today therefore he presented to the emergency department for evaluation. On arrival he clinically appeared to be in CHF any received a dose of IV Lasix and was briefly placed on BiPAP. He is urinated multiple times since and reports that his breathing has improved somewhat. He was weaned off of BiPAP and is currently on 4 L nasal cannula. Chest x-ray is similar to previous, BNP 471. Magnesium low at 1.4 and this was supplemented. 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 The patient will be admitted to the hospital with working diagnosis of CHF. Review of Systems Review of Systems: Yes all other systems are reviewed and are negative Constitutional: Constitutional: Denies chills and Denies fever(s) ENT: Denies dizziness Cardiovascular: Cardiovascular: Denies chest pain, Denies palpitations, Reports dyspnea on exertion, Reports orthopnea and Reports paroxysmal nocturnal dyspnea Respiratory: Respiratory: Reports dyspnea on exertion Gastrointestinal: Gastrointestinal: Denies abdominal pain, Denies nausea and Denies vomiting Neurologic: Denies dizziness Endocrine: Endocrine: Denies palpitations [facility] Medical History Anxiety Asthma Diabetes HLD (hyperlipidemia) HTN (hypertension) Hypercholesteremia YARELIS (obstructive sleep apnea) PAD (peripheral artery disease) Pertinent family history: unsure if he has family history of heart disease Surgical History S/P angiogram of extremity Social History Alcohol intake: current Alcohol intake frequency: a few times a month Patient Tobacco Use Status: Current everyday Tobacco user Tobacco use type: Cigarette Cigarettes Per Day: 10 Years Smoked: 29 Second Hand Smoke Exposure: Yes Use of substances other than those prescribed or required for medical reasons: No Substance Use Type: Marijuana Advance Directives: Yes Advance Directives on File: Yes Advance Directives Date on File: 06/21/21 service: No Current occupational status: unemployed Meds Allergies Allergy/AdvReac Type Severity Reaction Status Date / Time dulaglutide [From Trulicity] Allergy Unknown Verified 01/02/22 21:08 metformin [METFORMIN] AdvReac Mild DIARRHEA, Verified 09/22/20 13:18 nausea and vomiting Active Medications: Current Medications Acetaminophen (Acetaminophen 325 Mg Tablet) 650 mg PO Q6H PRN PRN Reason: Pain, Mild (Pain Scale 1-3) Amlodipine Besylate (Amlodipine Besylate 10 Mg Tablet) 10 mg PO DAILY [facility]; Protocol Atorvastatin Calcium (Atorvastatin Calcium 40 Mg Tablet) 40 mg PO DAILY [facility] Dextrose (Dextrose 50 % 25 Gm/50 Ml Syringe) 25 gm IVPUSH Q15M PRN; Protocol PRN Reason: per Hypoglycemia Standing Ord. Docusate Sodium (Docusate Sodium 100 Mg Capsule) 100 mg PO DAILY PRN PRN Reason: Constipation Enoxaparin Sodium (Enoxaparin Sodium 40 Mg/0.4 Ml Syringe) 40 mg SUBCUT Q24H [facility] Escitalopram Oxalate (Escitalopram Oxalate 10 Mg Tablet) 10 mg PO DAILY [facility] Ferrous Sulfate (Ferrous Sulfate 324 Mg Tablet.Dr) 324 mg PO DAILY [facility] Gabapentin (Gabapentin 300 Mg Capsule) 300 mg PO TID [facility] Glucose (Glucose Gel 15 Gm Gel..Gram.) 15 gm PO Q15M PRN; Protocol PRN Reason: per Hypoglycemia Standing Ord. Insulin Human Lispro (Insulin Lispro 100 Unit/Ml 3 Ml Vial) 0 unit SUBCUT QIDACHS [facility]; Protocol Insulin Human Lispro (Insulin Lispro 100 Unit/Ml 3 Ml Vial) 0 unit SUBCUT .COMPLEX [facility] Lisinopril (Lisinopril 40 Mg Tablet) 40 mg PO DAILY [facility]; Protocol Metoclopramide HCl (Metoclopramide Hcl 10 Mg Tablet) 10 mg PO QID [facility] Metoprolol Succinate (Metoprolol Succinate Er 100 Mg Tab.Er.24h) 100 mg PO DAILY [facility]; Protocol Nicotine (Nicotine 21 Mg Patch.Td24) 21 mg TRANSDERMA DAILY [facility] Non-Formulary Medication (Tiotropium [place] [Spiriva Respimat]) 2 puff INHALE DAILY [facility] Omeprazole (Omeprazole 40 Mg Capsule.Dr) 40 mg PO DAILY [facility] Ondansetron HCl (Ondansetron Hcl 4 Mg/2 Ml Vial) 4 mg IVPUSH Q8H PRN PRN Reason: Nausea and Vomiting Pharmacy Consult (Consult Rx Perform Med Rec) 1 each MISCELLANE ONCE PRN PRN Reason: Consult order Sodium Chloride (0.9 % Sodium Chloride Flush 3 Ml Syringe) 3 ml IVFLUSH QSHIFT [facility] Trazodone HCl (Trazodone Hcl 50 Mg Tablet) 50 mg PO BEDTIME [facility] Home Medications Medication Instructions Recorded Confirmed Last Taken Type albuterol sulfate 90 mcg/actuation 2 puff inhalation Q6H 08/01/22 08/11/22 Unknown History aerosol inhaler aspirin 81 mg tablet,delayed 1 tab PO DAILY 08/01/22 08/11/22 Unknown History release atorvastatin 40 mg tablet 1 tab PO DAILY 08/01/22 08/11/22 Unknown History escitalopram oxalate 10 mg tablet 1 tab PO DAILY 08/01/22 08/11/22 Unknown History gabapentin 300 mg capsule 1 cap PO TID 08/01/22 08/11/22 Unknown History insulin lispro 100 unit/mL See Rx Instructions .Route .COMPLEX 08/01/22 08/11/22 Unknown History subcutaneous solution lisinopril 40 mg tablet 1 tab PO DAILY 08/01/22 08/11/22 Unknown History metoclopramide HCl 10 mg tablet 1 tab PO QID 08/01/22 08/11/22 Unknown History metoprolol succinate 100 mg 1 tab PO DAILY 08/01/22 08/11/22 Unknown History tablet,extended release 24 hr omeprazole 40 mg capsule,delayed 1 cap PO DAILY 08/01/22 08/11/22 Unknown History release tiotropium bromide 1.25 2 puff inhalation DAILY 08/01/22 08/11/22 Unknown History mcg/actuation mist for inhalation (Spiriva Respimat) trazodone 50 mg tablet 1 - 2 tab PO BEDTIME 08/01/22 08/11/22 Unknown History Physical Exam Vital Signs and Narrative: Vital Signs: Last Vital Signs Temp 98.8 F 08/11/22 09:05 Pulse 108 H 08/11/22 14:18 Resp 18 08/11/22 14:18 BP 191/88 H 08/11/22 14:18 Pulse Ox 94 08/11/22 14:18 O2 Del Method 08/11/22 14:18 O2 Flow Rate 4 08/11/22 14:18 FiO2 28 08/11/22 13:06 Oxygen Flow Rate 3 08/11/22 09:05 BMI result Body Mass Index 24.2 Const: General: cooperative, alert and awake Nutritional Appearance: average body habitus Orientation/consciousness: patient oriented x3 Resp: Other: still reporting dyspnea; dim at bases bilaterally, no wheezing Effort & Inspection: normal respiratory effort and able to speak in complete sentences Cardio: Rate: regular rate Heart sounds: S1 normal heart sound present and S2 normal heart sound present Neuro: General: patient oriented x3 Extrem: Other: bilateral leg edema Results Labs CBC and Chem 7: 08/11/22 09:59 08/11/22 09:59 Labs: Laboratory Results - last 24 hr 08/11/22 08/11/22 08/11/22 09:58 09:59 09:59 MCV 84.3 MCH 26.6 L MCHC 31.6 RDW 16.0 Plt Count 415 H MPV 10.0 Immature Gran % (Auto) 0.6 H Neut % (Auto) 80.0 H Lymph % (Auto) 11.9 L [place] % (Auto) 5.3 Eos % (Auto) 2.0 Baso % (Auto) 0.2 Lymph # (Auto) 2.2 [place] # (Auto) 1.0 Eos # (Auto) 0.4 Baso # (Auto) 0.0 Abs Immat Gran (auto) 0.10 H Absolute Neuts (auto) 14.5 H Absolute Nucleated RBC 0.000 Nucleated RBC % (auto) 0.0 PT 12.2 INR 1.1 VBG pH VBG pCO2 VBG pO2 VBG HCO3 VBG O2 Saturation VBG Base Excess Anion Gap 18 Estim Creat Clear Calc 50.3 Estimated GFR 48 Random Glucose 220 H D Lactic Acid Calcium 9.0 Magnesium 1.4 L* Total Bilirubin 0.4 AST 14 ALT 25 Alkaline Phosphatase 98 Troponin I High Sens B-Natriuretic Peptide Total Protein 6.5 Albumin 3.5 Urine Color Urine Appearance Urine pH Ur Specific [place] Urine Protein Urine Glucose (UA) Urine Ketones Urine Blood Urine Nitrite Ur Leukocyte Esterase Urine RBC Urine WBC Ur Squamous Epith Cells Urine Bacteria Hyaline Casts Ethyl Alcohol COVID-19 (XANDER) COVID-19 Clin Com Influenza Type A (MAYELIN) Influenza Type B (MAYELIN) Influenza A & B Note 08/11/22 08/11/22 08/11/22 09:59 09:59 09:59 MCV MCH MCHC RDW Plt Count MPV Immature Gran % (Auto) Neut % (Auto) Lymph % (Auto) [place] % (Auto) Eos % (Auto) Baso % (Auto) Lymph # (Auto) [place] # (Auto) Eos # (Auto) Baso # (Auto) Abs Immat Gran (auto) Absolute Neuts (auto) Absolute Nucleated RBC Nucleated RBC % (auto) PT INR VBG pH VBG pCO2 VBG pO2 VBG HCO3 VBG O2 Saturation VBG Base Excess Anion Gap Estim Creat Clear Calc Estimated GFR Random Glucose Lactic Acid 1.7 Calcium Magnesium Total Bilirubin AST ALT Alkaline Phosphatase Troponin I High Sens 11.6 B-Natriuretic Peptide 471 H Total Protein Albumin Urine Color Urine Appearance Urine pH Ur Specific [place] Urine Protein Urine Glucose (UA) Urine Ketones Urine Blood Urine Nitrite Ur Leukocyte Esterase Urine RBC Urine WBC Ur Squamous Epith Cells Urine Bacteria Hyaline Casts Ethyl Alcohol COVID-19 (XANDER) COVID-19 Clin Com Influenza Type A (MAYELIN) Negative Influenza Type B (MAYELIN) Negative Influenza A & B Note See Note 08/11/22 08/11/22 08/11/22 09:59 09:59 10:04 MCV MCH MCHC RDW Plt Count MPV Immature Gran % (Auto) Neut % (Auto) Lymph % (Auto) [place] % (Auto) Eos % (Auto) Baso % (Auto) Lymph # (Auto) [place] # (Auto) Eos # (Auto) Baso # (Auto) Abs Immat Gran (auto) Absolute Neuts (auto) Absolute Nucleated RBC Nucleated RBC % (auto) PT INR VBG pH 7.47 H VBG pCO2 30 VBG pO2 68 VBG HCO3 22 VBG O2 Saturation 92.0 VBG Base Excess -0.5 Anion Gap Estim Creat Clear Calc Estimated GFR Random Glucose Lactic Acid Calcium Magnesium Total Bilirubin AST ALT Alkaline Phosphatase Troponin I High Sens B-Natriuretic Peptide Total Protein Albumin Urine Color Urine Appearance Urine pH Ur Specific [place] Urine Protein Urine Glucose (UA) Urine Ketones Urine Blood Urine Nitrite Ur Leukocyte Esterase Urine RBC Urine WBC Ur Squamous Epith Cells Urine Bacteria Hyaline Casts Ethyl Alcohol < 10 COVID-19 (XANDER) Negative COVID-19 Clin Com See Note Influenza Type A (MAYELIN) Influenza Type B (MAYELIN) Influenza A & B Note 08/11/22 11:52 MCV MCH MCHC RDW Plt Count MPV Immature Gran % (Auto) Neut % (Auto) Lymph % (Auto) [place] % (Auto) Eos % (Auto) Baso % (Auto) Lymph # (Auto) [place] # (Auto) Eos # (Auto) Baso # (Auto) Abs Immat Gran (auto) Absolute Neuts (auto) Absolute Nucleated RBC Nucleated RBC % (auto) PT INR VBG pH VBG pCO2 VBG pO2 VBG HCO3 VBG O2 Saturation VBG Base Excess Anion Gap Estim Creat Clear Calc Estimated GFR Random Glucose Lactic Acid Calcium Magnesium Total Bilirubin AST ALT Alkaline Phosphatase Troponin I High Sens B-Natriuretic Peptide Total Protein Albumin Urine Color Yellow Urine Appearance Clear Urine pH 8.0 Ur Specific [place] 1.010 Urine Protein 100 (2+) H Urine Glucose (UA) Negative Urine Ketones Trace Urine Blood Negative Urine Nitrite Negative Ur Leukocyte Esterase Negative Urine RBC 0-2 Urine WBC 0-5 Ur Squamous Epith Cells 0-2 Urine Bacteria None Seen Hyaline Casts 0-2 Ethyl Alcohol COVID-19 (XANDER) COVID-19 Clin Com Influenza Type A (MAYELIN) Influenza Type B (MAYELIN) Influenza A & B Note Imaging Radiologist's Impressions: Impressions Chest X-Ray 08/11/22 09:30 IMPRESSION: Slight improvement. Assessment and Plan (1) CHF exacerbation: Status: Acute Plan This is a 47 year old male with history of diabetes, PAD, hypertension, HLD, COPD on 3 L home O2, recent admission for COPD/CHF/PNA who returns to the ED with shortness of breath found to be in CHF Acute on chronic respiratory failure with hypoxia secondary to CHF briefly requiring bipap, now on 4L NC (on 3L at baseline) Acute on chronic HFpEF previous echo with preserved EF, restrictive pattern although CXR appears improved from previous, clinically appears to be in CHF -IV lasix -trend trop -cardiology consult Hypomagnesemia magnesium 1.4 given 2 gm mag in ED follow levels in am CKD3 Creatinine within range from last admission -follow BMP DM on insulin pump at baseline will discuss with pharmacy - consider continuing insulin pump vs basal/bolus during hospitalization Anemia H/H stable compared to last admission outpatient EGD/colonoscopy scheduled HTN Continue metoprolol, Norvasc, lisinopril HLD continue statin PVD continue statin asa was held on last admit Mood continue lexapro dvt ppx - lovenox attending - dr. Cifuentes Patient will likely require 2 midnight stay in the hospital for management of acute on chronic CHF, respiratory failure Quality Stroke Does the patient have a stroke diagnosis?: No VTE Prior VTE?: No VTE Risk Level:: Medical - moderate - high VTE Device Contraindication: Treatment Not Indicated VTE Drug Contraindication: N/A - Med Ordered
[2022-08-11] MEDS: Enoxaparin Sodium 40 MG/0.4 ML SYRINGE SUBCUT (15:51)
[2022-08-11] MEDS: Gabapentin 300 MG CAPSULE PO ×2 (15:51→21:07)
[2022-08-11 16:50] LABS: Troponin-I High Sensitivity 11.9 ng/L (<3.5-35.0)
[2022-08-11] MEDS: 0.9 % Sodium Chloride Flush 3 ML SYRINGE IVFLUSH ×2 (17:12→23:31)
[2022-08-11 17:20] LABS: Glucose, Whole Blood 207 mg/dL (60-115)
[2022-08-11] MEDS: Metoclopramide HCl 10 MG TABLET PO ×2 (18:56→21:07)
[2022-08-11] MEDS: Furosemide 20 MG/2 ML VIAL IVPUSH (18:56)
[2022-08-11 20:05] LABS: Glucose, Whole Blood 235 mg/dL (60-115)
[2022-08-11] MEDS: Insulin Lispro 100 UNIT/ML 3 ML VIAL SUBCUT (21:07)
[2022-08-11] MEDS: traZODone HCL 50 MG TABLET PO (21:07)
[2022-08-11] MEDS: Insulin Glargine,Hum.rec.anlog 100 UNIT/ML 10 ML VIAL 15 UNIT SUBCUT (21:07)
[2022-08-12 04:00] VITALS: BP 164/82; PULSE 98; RESP 20; TEMP 37.1; O2SAT 94
[2022-08-12] MEDS: Ferrous Sulfate 324 MG TABLET.DR PO (06:39)
[2022-08-12] MEDS: Gabapentin 300 MG CAPSULE PO ×3 (06:39→20:29)
[2022-08-12] MEDS: Metoclopramide HCl 10 MG TABLET PO ×4 (06:39→20:29)
[2022-08-12] MEDS: Omeprazole 40 MG CAPSULE.DR PO (06:39)
[2022-08-12] MEDS: Escitalopram Oxalate 10 MG TABLET PO (06:40)
[2022-08-12] MEDS: Metoprolol Succinate ER 100 MG TAB.ER.24H PO (06:40)
[2022-08-12] MEDS: Atorvastatin Calcium 40 MG TABLET PO (06:40)
[2022-08-12] MEDS: lisinopriL 40 MG TABLET PO (06:40)
[2022-08-12] MEDS: amLODIPine Besylate 10 MG TABLET PO (06:40)
[2022-08-12] MEDS: 0.9 % Sodium Chloride Flush 3 ML SYRINGE IVFLUSH ×2 (06:42→15:53)
[2022-08-12] MEDS: Nicotine 21 MG PATCH.TD24 TRANSDERMA (06:51)
[2022-08-12 07:11] VITALS: BP 180/86; PULSE 90; RESP 16; TEMP 36.9; O2SAT 95
[2022-08-12 07:14] LABS: MANUAL DIFF FLAG NO
[2022-08-12 07:17] LABS: Basophils Percent Auto 0.2 % (0-2); Eosinophils Absolute Auto 0.4 X10*3/uL (0.0-0.4); Eosinophils Percent Auto 2.4 % (0-4); Hematocrit 31.6 % (42.0-52.0); Hemoglobin 10.5 g/dl (14.0-18.0); Imm Gran Pct Auto 0.6 % (0.0-0.4); Lymphocytes Absolute Auto 2.3 X10*3/uL (1.2-4.9); Lymphocytes Percent Auto 13.1 % (20-40); Mean Corpuscular HGB Conc 33.2 g/dl (31.0-36.0); Mean Corpuscular Hemoglobin 28.2 pg (27.0-33.0); Mean Corpuscular Volume 84.7 fL (80.0-98.0); Mean Platelet Volume 9.4 fL (9.4-12.4); Monocytes Absolute Auto 0.9 X10*3/uL (0.1-1.2); Monocytes Percent Auto 5.2 % (2-11); Neutrophils Absolute Auto 13.6 x10*3/uL (2.0-8.3); Neutrophils Percent Auto 78.5 % (45-73); Platelet Count 399 X10*3/uL (160-400); Red Blood Count 3.73 X10*6/uL (4.60-5.80); Red Cell Distribution Width 15.9 % (11.0-16.0); White Blood Count 17.4 X10*3/uL (4.8-10.8)
[2022-08-12 07:27] LABS: Glucose, Whole Blood 235 mg/dL (60-115)
[2022-08-12 07:36] LABS: Anion Gap 17 (12-20); Blood Urea Nitrogen 16 mg/dL (9-16); Calcium 9.6 mg/dL (8.4-10.2); Carbon Dioxide 25 mmol/L (22-29); Chloride 102 mmol/L (96-108); Creatinine Clr Calc Pharmacy 48.8; Estimated Glomerular Filt Rate 46; Glucose Random 242 mg/dL (60-115); Magnesium 1.7 mg/dL (1.6-2.6); Potassium 4.2 mmol/L (3.3-5.1); Sodium 140 mmol/L (135-145)
[2022-08-12 07:40] LABS: B Type Natriuretic Peptide 304 pg/mL (<100)
[2022-08-12] MEDS: Furosemide 20 MG/2 ML VIAL IVPUSH (08:13)
[2022-08-12] MEDS: Insulin Lispro 100 UNIT/ML 3 ML VIAL SUBCUT ×3 (08:17→20:30)
--- NOTE | 2022-08-12 08:43 | MHC.CM.PN ---
CM met with Patient at bedside. Patient typically lives in an apartment with his twin Brother, Daughter, and 2 year old Grandson, but he is now staying with his Mother, who's home has no steps to enter. 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 Home/resume O2 is the goal and CM has initiated and will follow for dc planning. Patient has received Moderna/covid vax x2 and his PCP is Dr. Zari Henry.
--- NOTE | 2022-08-12 09:30 | P.CONCA_ITS ---
History of Present Illness History of Present Illness Date of Service: 08/12/22 Chief complaint: Dysnpea, resp. failure Narrative: This is a cardiology consultation regarding possible congestive heart failure. He was recently admitted for shortness of breath but seen by Dr. Mcgee and it was thought that his symptoms were out of proportion for anything cardiac. He returns back to the hospital stating that he had increasing leg swelling. Additionally, he had orthopnea type symptoms where every time he lies down, he was feeling more short of breath. However, when he was walking his shortness of breath not get worse. No clear anginal-type symptoms. Of note, he states he has got obstructive sleep apnea but does not have a mass get. Hence not clear if it is orthopnea type symptoms are rather from structure sleep apnea than cardiac in nature. Any case, he got diuresed and today he feels better. Leg swelling is improved. He is sleeping at an incline and not lying flat. Review of Systems Review of Systems: Yes all other systems are reviewed and are negative Constitutional: Constitutional: Reports as per HPI Eyes: Eyes: Reports as per HPI ENT: Reports as per HPI Cardiovascular: Cardiovascular: Reports as per HPI, Denies acrocyanosis, Denies cool extremities, Denies chest pain, Reports leg edema, Denies lightheadedness, Denies palpitations and Reports dyspnea Respiratory: Respiratory: Reports as per HPI, Reports no additional respiratory complaints and Reports dyspnea Gastrointestinal: Gastrointestinal: Reports as per HPI and Reports no additional gastrointestinal complaints Genitourinary: Genitourinary: Reports no additional male genitourinary complaints and Reports as per HPI Musculoskeletal: Musculoskeletal: Reports no additional musculoskeletal complaints and Reports as per HPI Integumentary/Breasts: Skin/Breast: Reports system reviewed and no additional complaints, except as docu Neurologic: Reports system reviewed and no additional complaints, except as documented and Reports as per HPI Psychiatric: Psychiatric: Reports no additional psychiatric complaints and Reports as per HPI Endocrine: Endocrine: Reports no additional endocrine complaints, Reports as per HPI and Denies palpitations Hematologic/Lymphatic: Hematologic/Lymphatic: Reports no additional hematologic/lymphatic complaints and Reports as per HPI Allergic/Immunologic: Allergic/Immunologic: Reports no additional allergic/immunologic complaints and Reports as per HPI [facility] Past Medical History Medical History Anxiety Asthma Diabetes HLD (hyperlipidemia) HTN (hypertension) Hypercholesteremia YARELIS (obstructive sleep apnea) PAD (peripheral artery disease) Family History Family History (Updated 08/12/22 @ 09:33 by Donaldo Armas MD) Father Alzheimer disease CAD (coronary artery disease) Surgical History Surgical History S/P angiogram of extremity Social History Social History Household Members: Family Housing: Apartment Do you presently have visiting nurse or other home services: No Alcohol intake: current Alcohol intake frequency: a few times a month Patient Tobacco Use Status: Current everyday Tobacco user Tobacco use type: Cigarette Cigarettes Per Day: 10 Years Smoked: 29 e-Cigarette/Vaping Use: Never Used Second Hand Smoke Exposure: Yes Substance Use Type: Marijuana Advance Directives Date on File: 06/21/21 service: No Current occupational status: disabled Meds Allergies Allergy/AdvReac Type Severity Reaction Status Date / Time dulaglutide [From Trulicity] Allergy Unknown Verified 01/02/22 21:08 metformin [METFORMIN] AdvReac Mild DIARRHEA, Verified 09/22/20 13:18 nausea and vomiting Active Medications: Current Medications Acetaminophen (Acetaminophen 325 Mg Tablet) 650 mg PO Q6H PRN PRN Reason: Pain, Mild (Pain Scale 1-3) Albuterol/Ipratropium (Albuterol/Iprat 2.5/0.5mg 3 Ml Ampul.Neb) 3 ml INHALE RQ4H WHILE AWAKE PRN PRN Reason: Shortness of Breath/Wheezing Amlodipine Besylate (Amlodipine Besylate 10 Mg Tablet) 10 mg PO DAILY DIONISIO; Protocol Last Admin: 08/12/22 06:40 Dose: 10 mg Atorvastatin Calcium (Atorvastatin Calcium 40 Mg Tablet) 40 mg PO DAILY DIONISIO Last Admin: 08/12/22 06:40 Dose: 40 mg Dextrose (Dextrose 50 % 25 Gm/50 Ml Syringe) 25 gm IVPUSH Q15M PRN; Protocol PRN Reason: per Hypoglycemia Standing Ord. Docusate Sodium (Docusate Sodium 100 Mg Capsule) 100 mg PO DAILY PRN PRN Reason: Constipation Enoxaparin Sodium (Enoxaparin Sodium 40 Mg/0.4 Ml Syringe) 40 mg SUBCUT Q24H DIONISIO Last Admin: 08/11/22 15:51 Dose: 40 mg Escitalopram Oxalate (Escitalopram Oxalate 10 Mg Tablet) 10 mg PO DAILY [facility] Last Admin: 08/12/22 06:40 Dose: 10 mg Ferrous Sulfate (Ferrous Sulfate 324 Mg Tablet.) 324 mg PO DAILY [facility] Last Admin: 08/12/22 06:39 Dose: 324 mg Furosemide (Furosemide 20 Mg/2 Ml Vial) 20 mg IVPUSH BID@0900,1800 [facility]; Protocol Last Admin: 08/12/22 08:13 Dose: 20 mg Gabapentin (Gabapentin 300 Mg Capsule) 300 mg PO TID [facility] Last Admin: 08/12/22 06:39 Dose: 300 mg Glucose (Glucose Gel 15 Gm Gel..Gram.) 15 gm PO Q15M PRN; Protocol PRN Reason: per Hypoglycemia Standing Ord. Hydralazine HCl (Hydralazine Hcl 50 Mg Tablet) 50 mg PO TID [facility]; Protocol Insulin Glargine (Insulin Glargine,Hum.Rec.Anlog 100 Unit/Ml 10 Ml Vial) 15 unit SUBCUT BEDTIME [facility] Last Admin: 08/11/22 21:07 Dose: 15 unit Insulin Human Lispro (Insulin Lispro 100 Unit/Ml 3 Ml Vial) 0 unit SUBCUT QIDACHS [facility]; Protocol Last Admin: 08/12/22 08:17 Dose: 4 unit Lisinopril (Lisinopril 40 Mg Tablet) 40 mg PO DAILY [facility]; Protocol Last Admin: 08/12/22 06:40 Dose: 40 mg Metoclopramide HCl (Metoclopramide Hcl 10 Mg Tablet) 10 mg PO QID [facility] Last Admin: 08/12/22 06:39 Dose: 10 mg Metoprolol Succinate (Metoprolol Succinate Er 100 Mg Tab.Er.24h) 100 mg PO DAILY [facility]; Protocol Last Admin: 08/12/22 06:40 Dose: 100 mg Nicotine (Nicotine 21 Mg Patch.Td24) 21 mg TRANSDERMA DAILY [facility] Last Admin: 08/12/22 06:51 Dose: 21 mg Omeprazole (Omeprazole 40 Mg Capsule.) 40 mg PO DAILY@0630 [facility] Last Admin: 08/12/22 06:39 Dose: 40 mg Ondansetron HCl (Ondansetron Hcl 4 Mg/2 Ml Vial) 4 mg IVPUSH Q8H PRN PRN Reason: Nausea and Vomiting Pharmacy Consult (Consult Rx Perform Med Rec) 1 each MISCELLANE ONCE PRN PRN Reason: Consult order Sodium Chloride (0.9 % Sodium Chloride Flush 3 Ml Syringe) 3 ml IVFLUSH QSHIFT [facility] Last Admin: 08/12/22 06:42 Dose: 3 ml Tiotropium [place] (Tiotropium [place] 18 Mcg Cap.W.Dev) 2 puff INHALE RDAILY [facility] Trazodone HCl (Trazodone Hcl 50 Mg Tablet) 50 mg PO BEDTIME [facility] Last Admin: 08/11/22 21:07 Dose: 50 mg Home Medications Medication Instructions Recorded Confirmed Last Taken Type albuterol sulfate 90 mcg/actuation 2 puff inhalation Q6H 08/01/22 08/11/22 Unknown History aerosol inhaler aspirin 81 mg tablet,delayed 1 tab PO DAILY 08/01/22 08/11/22 Unknown History release atorvastatin 40 mg tablet 1 tab PO DAILY 08/01/22 08/11/22 Unknown History escitalopram oxalate 10 mg tablet 1 tab PO DAILY 08/01/22 08/11/22 Unknown History gabapentin 300 mg capsule 1 cap PO TID 08/01/22 08/11/22 Unknown History insulin lispro 100 unit/mL See Rx Instructions .Route .COMPLEX 08/01/22 08/11/22 Unknown History subcutaneous solution lisinopril 40 mg tablet 1 tab PO DAILY 08/01/22 08/11/22 Unknown History metoclopramide HCl 10 mg tablet 1 tab PO QID 08/01/22 08/11/22 Unknown History metoprolol succinate 100 mg 1 tab PO DAILY 08/01/22 08/11/22 Unknown History tablet,extended release 24 hr omeprazole 40 mg capsule,delayed 1 cap PO DAILY 08/01/22 08/11/22 Unknown History release tiotropium bromide 1.25 2 puff inhalation DAILY 08/01/22 08/11/22 Unknown History mcg/actuation mist for inhalation (Spiriva Respimat) trazodone 50 mg tablet 1 - 2 tab PO BEDTIME 08/01/22 08/11/22 Unknown History Physical Exam Vital Signs: Vital Signs: Last Vital Signs Temp 98.5 F 08/12/22 07:11 Pulse 90 08/12/22 07:11 Resp 16 08/12/22 07:11 BP 180/86 H 08/12/22 07:11 Pulse Ox 95 08/12/22 07:11 O2 Del Method 08/12/22 07:11 O2 Flow Rate 4 08/12/22 07:11 FiO2 28 08/11/22 13:06 Oxygen Flow Rate 3 08/11/22 09:05 BMI result Body Mass Index 24.2 Const: General: comfortable and no acute distress Orientation/consciousness: patient oriented x3 HEENT: Other: Unremarkable Head: Yes normal to inspection Neck: Neck: Yes normal visual inspection Chest: Chest palpation & inspection: normal inspection of the chest Resp: Auscultation: diminished lung sounds bilateral in the lower lung jimenez Cardio: Palpation: normal PMI Heart sounds: S1 normal heart sound present, S2 normal heart sound present, no gallops, no murmurs and no rubs GI: Palpation (GI): Soft to palpation Back/Spine/Pelvis: Other: unremarkable Skin: General skin exam: no rashes or lesions noted Neuro: General: patient oriented x3 Extrem: General: Yes normal to inspection Psych: Mental Status: mental status grossly normal Objective Labs and Meds Result diagrams: 08/12/22 07:07 08/12/22 07:07 Lab results: Laboratory Results - last 24 hr 08/11/22 08/11/22 08/11/22 09:58 09:59 09:59 WBC 18.1 H RBC 3.83 L Hgb 10.2 L Hct 32.3 L MCV 84.3 MCH 26.6 L MCHC 31.6 RDW 16.0 Plt Count 415 H MPV 10.0 Immature Gran % (Auto) 0.6 H Neut % (Auto) 80.0 H Lymph % (Auto) 11.9 L [place] % (Auto) 5.3 Eos % (Auto) 2.0 Baso % (Auto) 0.2 Lymph # (Auto) 2.2 [place] # (Auto) 1.0 Eos # (Auto) 0.4 Baso # (Auto) 0.0 Abs Immat Gran (auto) 0.10 H Absolute Neuts (auto) 14.5 H Absolute Nucleated RBC 0.000 Nucleated RBC % (auto) 0.0 PT 12.2 INR 1.1 VBG pH VBG pCO2 VBG pO2 VBG HCO3 VBG O2 Saturation VBG Base Excess Sodium 140 Potassium 4.8 Chloride 105 Carbon Dioxide 22 Anion Gap 18 BUN 16 Creatinine 1.56 H Estim Creat Clear Calc 50.3 Estimated GFR 48 POC Glucose Random Glucose 220 H D Lactic Acid Calcium 9.0 Magnesium 1.4 L* Total Bilirubin 0.4 AST 14 ALT 25 Alkaline Phosphatase 98 Troponin I High Sens B-Natriuretic Peptide Total Protein 6.5 Albumin 3.5 Urine Color Urine Appearance Urine pH Ur Specific [place] Urine Protein Urine Glucose (UA) Urine Ketones Urine Blood Urine Nitrite Ur Leukocyte Esterase Urine RBC Urine WBC Ur Squamous Epith Cells Urine Bacteria Hyaline Casts Ethyl Alcohol COVID-19 (XANDER) COVID-19 Clin Com Influenza Type A (MAYELIN) Influenza Type B (MAYELIN) Influenza A & B Note 08/11/22 08/11/22 08/11/22 09:59 09:59 09:59 WBC RBC Hgb Hct MCV MCH MCHC RDW Plt Count MPV Immature Gran % (Auto) Neut % (Auto) Lymph % (Auto) [place] % (Auto) Eos % (Auto) Baso % (Auto) Lymph # (Auto) [place] # (Auto) Eos # (Auto) Baso # (Auto) Abs Immat Gran (auto) Absolute Neuts (auto) Absolute Nucleated RBC Nucleated RBC % (auto) PT INR VBG pH VBG pCO2 VBG pO2 VBG HCO3 VBG O2 Saturation VBG Base Excess Sodium Potassium Chloride Carbon Dioxide Anion Gap BUN Creatinine Estim Creat Clear Calc Estimated GFR POC Glucose Random Glucose Lactic Acid 1.7 Calcium Magnesium Total Bilirubin AST ALT Alkaline Phosphatase Troponin I High Sens 11.6 B-Natriuretic Peptide 471 H Total Protein Albumin Urine Color Urine Appearance Urine pH Ur Specific [place] Urine Protein Urine Glucose (UA) Urine Ketones Urine Blood Urine Nitrite Ur Leukocyte Esterase Urine RBC Urine WBC Ur Squamous Epith Cells Urine Bacteria Hyaline Casts Ethyl Alcohol COVID-19 (XANDER) COVID-19 Clin Com Influenza Type A (MAYELIN) Negative Influenza Type B (MAYELIN) Negative Influenza A & B Note See Note 08/11/22 08/11/22 08/11/22 09:59 09:59 10:04 WBC RBC Hgb Hct MCV MCH MCHC RDW Plt Count MPV Immature Gran % (Auto) Neut % (Auto) Lymph % (Auto) [place] % (Auto) Eos % (Auto) Baso % (Auto) Lymph # (Auto) [place] # (Auto) Eos # (Auto) Baso # (Auto) Abs Immat Gran (auto) Absolute Neuts (auto) Absolute Nucleated RBC Nucleated RBC % (auto) PT INR VBG pH 7.47 H VBG pCO2 30 VBG pO2 68 VBG HCO3 22 VBG O2 Saturation 92.0 VBG Base Excess -0.5 Sodium Potassium Chloride Carbon Dioxide Anion Gap BUN Creatinine Estim Creat Clear Calc Estimated GFR POC Glucose Random Glucose Lactic Acid Calcium Magnesium Total Bilirubin AST ALT Alkaline Phosphatase Troponin I High Sens B-Natriuretic Peptide Total Protein Albumin Urine Color Urine Appearance Urine pH Ur Specific [place] Urine Protein Urine Glucose (UA) Urine Ketones Urine Blood Urine Nitrite Ur Leukocyte Esterase Urine RBC Urine WBC Ur Squamous Epith Cells Urine Bacteria Hyaline Casts Ethyl Alcohol < 10 COVID-19 (XANDER) Negative COVID-19 Clin Com See Note Influenza Type A (MAYELIN) Influenza Type B (MAYELIN) Influenza A & B Note 08/11/22 08/11/22 08/11/22 11:52 15:59 17:16 WBC RBC Hgb Hct MCV MCH MCHC RDW Plt Count MPV Immature Gran % (Auto) Neut % (Auto) Lymph % (Auto) [place] % (Auto) Eos % (Auto) Baso % (Auto) Lymph # (Auto) [place] # (Auto) Eos # (Auto) Baso # (Auto) Abs Immat Gran (auto) Absolute Neuts (auto) Absolute Nucleated RBC Nucleated RBC % (auto) PT INR VBG pH VBG pCO2 VBG pO2 VBG HCO3 VBG O2 Saturation VBG Base Excess Sodium Potassium Chloride Carbon Dioxide Anion Gap BUN Creatinine Estim Creat Clear Calc Estimated GFR POC Glucose 207 H Random Glucose Lactic Acid Calcium Magnesium Total Bilirubin AST ALT Alkaline Phosphatase Troponin I High Sens 11.9 B-Natriuretic Peptide Total Protein Albumin Urine Color Yellow Urine Appearance Clear Urine pH 8.0 Ur Specific [place] 1.010 Urine Protein 100 (2+) H Urine Glucose (UA) Negative Urine Ketones Trace Urine Blood Negative Urine Nitrite Negative Ur Leukocyte Esterase Negative Urine RBC 0-2 Urine WBC 0-5 Ur Squamous Epith Cells 0-2 Urine Bacteria None Seen Hyaline Casts 0-2 Ethyl Alcohol COVID-19 (XANDER) COVID-19 Clin Com Influenza Type A (MAYELIN) Influenza Type B (MAYELIN) Influenza A & B Note 08/11/22 08/12/22 08/12/22 19:56 07:07 07:07 WBC 17.4 H RBC 3.73 L Hgb 10.5 L Hct 31.6 L MCV 84.7 MCH 28.2 MCHC 33.2 RDW 15.9 Plt Count 399 MPV 9.4 Immature Gran % (Auto) 0.6 H Neut % (Auto) 78.5 H Lymph % (Auto) 13.1 L [place] % (Auto) 5.2 Eos % (Auto) 2.4 Baso % (Auto) 0.2 Lymph # (Auto) 2.3 [place] # (Auto) 0.9 Eos # (Auto) 0.4 Baso # (Auto) 0.0 Abs Immat Gran (auto) 0.10 H Absolute Neuts (auto) 13.6 H Absolute Nucleated RBC 0.000 Nucleated RBC % (auto) 0.0 PT INR VBG pH VBG pCO2 VBG pO2 VBG HCO3 VBG O2 Saturation VBG Base Excess Sodium 140 Potassium 4.2 Chloride 102 Carbon Dioxide 25 Anion Gap 17 BUN 16 Creatinine 1.61 H Estim Creat Clear Calc 48.8 Estimated GFR 46 POC Glucose 235 H Random Glucose 242 H Lactic Acid Calcium 9.6 D Magnesium 1.7 Total Bilirubin AST ALT Alkaline Phosphatase Troponin I High Sens B-Natriuretic Peptide Total Protein Albumin Urine Color Urine Appearance Urine pH Ur Specific [place] Urine Protein Urine Glucose (UA) Urine Ketones Urine Blood Urine Nitrite Ur Leukocyte Esterase Urine RBC Urine WBC Ur Squamous Epith Cells Urine Bacteria Hyaline Casts Ethyl Alcohol COVID-19 (XANDER) COVID-19 Clin Com Influenza Type A (MAYELIN) Influenza Type B (MAYELIN) Influenza A & B Note 08/12/22 08/12/22 07:07 07:14 WBC RBC Hgb Hct MCV MCH MCHC RDW Plt Count MPV Immature Gran % (Auto) Neut % (Auto) Lymph % (Auto) [place] % (Auto) Eos % (Auto) Baso % (Auto) Lymph # (Auto) [place] # (Auto) Eos # (Auto) Baso # (Auto) Abs Immat Gran (auto) Absolute Neuts (auto) Absolute Nucleated RBC Nucleated RBC % (auto) PT INR VBG pH VBG pCO2 VBG pO2 VBG HCO3 VBG O2 Saturation VBG Base Excess Sodium Potassium Chloride Carbon Dioxide Anion Gap BUN Creatinine Estim Creat Clear Calc Estimated GFR POC Glucose 235 H Random Glucose Lactic Acid Calcium Magnesium Total Bilirubin AST ALT Alkaline Phosphatase Troponin I High Sens B-Natriuretic Peptide 304 H Total Protein Albumin Urine Color Urine Appearance Urine pH Ur Specific [place] Urine Protein Urine Glucose (UA) Urine Ketones Urine Blood Urine Nitrite Ur Leukocyte Esterase Urine RBC Urine WBC Ur Squamous Epith Cells Urine Bacteria Hyaline Casts Ethyl Alcohol COVID-19 (XANDER) COVID-19 Clin Com Influenza Type A (MAYELIN) Influenza Type B (MAYELIN) Influenza A & B Note ECG Interpretation: EKG with sinus tachycardia, 104/Min; no significant ST-T changes and otherwise unremarkable. Imaging Radiologist's impression: Impressions Chest X-Ray 08/11/22 09:30 IMPRESSION: Slight improvement. Chest CT 08/11/22 20:27 IMPRESSION: Bilateral lower lobe patchy consolidation with air bronchograms resolving infiltrate/atelectasis. There is groundglass opacity left upper lobe and superior segment left lower lobe likely resolving infiltrates as well. There are moderate bilateral pleural effusions left greater than right. Reactive lymph nodes in the mediastinum as described above. Fleischner guidelines were followed. Assessment and Plan (1) Acute on chronic diastolic (congestive) heart failure: Status: Acute (2) YARELIS (obstructive sleep apnea): Status: Acute (3) COPD exacerbation: Status: Acute (4) Uncontrolled hypertension: Status: Acute Plan Symptoms could be multifactorial. Could be from some combination of congestive heart failure, COPD as well as untreated obstructive sleep apnea. Apparently, he was having lot of leg swelling upon arrival but today he does not really have anything. Okay to continue diuretics at the home dose but just use extra dose as needed. He already has baseline kidney dysfunction and hence do not want diurese him too much. With regard to obstructive sleep apnea, that could also make him feel orthopneic when he lies flat. 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 With regard to hypertension, blood pressure is too high. He is already on beta-blockers, amlodipine, lisinopril. Can add hydralazine. Discussed with Veronica Sinclair. Procedures Date of Service Date of Service: 08/12/22
[2022-08-12] MEDS: hydrALAZINE HCl 50 MG TABLET PO ×3 (10:04→20:29)
[2022-08-12 11:03] VITALS: BP 178/76; PULSE 87; RESP 16; TEMP 36.9; O2SAT 97
[2022-08-12 11:19] LABS: Glucose, Whole Blood 135 mg/dL (60-115)
--- NOTE | 2022-08-12 13:16 | HO.PM.IMPN ---
Subjective Subjective Date of Service: 08/12/22 Interval History: seen and examined this morning follow up for dyspnea improvement in breathing and leg edema Review of Systems Review of Systems: Yes all other systems are reviewed and are negative Constitutional Constitutional: Denies chills and Denies fever(s) Cardiovascular Cardiovascular: Denies chest pain, Denies palpitations and Denies dyspnea Respiratory Respiratory: Denies cough and Denies dyspnea Gastrointestinal Gastrointestinal: Denies abdominal pain, Denies nausea and Denies vomiting Endocrine Endocrine: Denies palpitations Physical Exam Vital Signs: Vital Signs: Last Vital Signs Temp 98.5 F 08/12/22 11:03 Pulse 87 08/12/22 11:03 Resp 16 08/12/22 11:03 BP 178/76 H 08/12/22 11:03 Pulse Ox 97 08/12/22 11:03 O2 Del Method 08/12/22 11:03 O2 Flow Rate 4 08/12/22 11:03 FiO2 28 08/11/22 13:06 Oxygen Flow Rate 3 08/11/22 09:05 BMI result Body Mass Index 24.2 Const: General: cooperative, alert and awake Nutritional Appearance: average body habitus Orientation/consciousness: patient oriented x3 Resp: Other: dim at bases bilaterally, no wheezing Effort & Inspection: normal respiratory effort and able to speak in complete sentences Cardio: Rate: regular rate Heart sounds: S1 normal heart sound present and S2 normal heart sound present Neuro: General: patient oriented x3 Extrem: Other: bilateral leg edema Objective Data Active Medications Acetaminophen (Acetaminophen 325 Mg Tablet) 650 mg PO Q6H PRN PRN Reason: Pain, Mild (Pain Scale 1-3) Albuterol/Ipratropium (Albuterol/Iprat 2.5/0.5mg 3 Ml Ampul.Neb) 3 ml INHALE RQ4H WHILE AWAKE PRN PRN Reason: Shortness of Breath/Wheezing Amlodipine Besylate (Amlodipine Besylate 10 Mg Tablet) 10 mg PO DAILY [facility]; Protocol Last Admin: 08/12/22 06:40 Dose: 10 mg Documented By: LINSEY Atorvastatin Calcium (Atorvastatin Calcium 40 Mg Tablet) 40 mg PO DAILY [facility] Last Admin: 08/12/22 06:40 Dose: 40 mg Documented By: LINSEY Dextrose (Dextrose 50 % 25 Gm/50 Ml Syringe) 25 gm IVPUSH Q15M PRN; Protocol PRN Reason: per Hypoglycemia Standing Ord. Docusate Sodium (Docusate Sodium 100 Mg Capsule) 100 mg PO DAILY PRN PRN Reason: Constipation Enoxaparin Sodium (Enoxaparin Sodium 40 Mg/0.4 Ml Syringe) 40 mg SUBCUT Q24H [facility] Last Admin: 08/11/22 15:51 Dose: 40 mg Documented By: SHANTE Escitalopram Oxalate (Escitalopram Oxalate 10 Mg Tablet) 10 mg PO DAILY [facility] Last Admin: 08/12/22 06:40 Dose: 10 mg Documented By: LINSEY Ferrous Sulfate (Ferrous Sulfate 324 Mg Tablet.) 324 mg PO DAILY [facility] Last Admin: 08/12/22 06:39 Dose: 324 mg Documented By: LINSEY Furosemide (Furosemide 20 Mg/2 Ml Vial) 20 mg IVPUSH BID@0900,1800 [facility]; Protocol Last Admin: 08/12/22 08:13 Dose: 20 mg Documented By: LINSEY Gabapentin (Gabapentin 300 Mg Capsule) 300 mg PO TID [facility] Last Admin: 08/12/22 06:39 Dose: 300 mg Documented By: LINSEY Glucose (Glucose Gel 15 Gm Gel..Gram.) 15 gm PO Q15M PRN; Protocol PRN Reason: per Hypoglycemia Standing Ord. Hydralazine HCl (Hydralazine Hcl 50 Mg Tablet) 50 mg PO TID [facility]; Protocol Last Admin: 08/12/22 10:04 Dose: 50 mg Documented By: LINSEY Insulin Glargine (Insulin Glargine,Hum.Rec.Anlog 100 Unit/Ml 10 Ml Vial) 15 unit SUBCUT BEDTIME [facility] Last Admin: 08/11/22 21:07 Dose: 15 unit Documented By: FER Insulin Human Lispro (Insulin Lispro 100 Unit/Ml 3 Ml Vial) 0 unit SUBCUT QIDACHS [facility]; Protocol Last Admin: 08/12/22 11:24 Dose: Not Given Documented By: LINSEY Non-Admin Reason: No Insulin Coverage Lisinopril (Lisinopril 40 Mg Tablet) 40 mg PO DAILY [facility]; Protocol Last Admin: 08/12/22 06:40 Dose: 40 mg Documented By: LINSEY Metoclopramide HCl (Metoclopramide Hcl 10 Mg Tablet) 10 mg PO QID [facility] Last Admin: 08/12/22 12:43 Dose: 10 mg Documented By: LINSEY Metoprolol Succinate (Metoprolol Succinate Er 100 Mg Tab.Er.24h) 100 mg PO DAILY [facility]; Protocol Last Admin: 08/12/22 06:40 Dose: 100 mg Documented By: LINSEY Nicotine (Nicotine 21 Mg Patch.Td24) 21 mg TRANSDERMA DAILY [facility] Last Admin: 08/12/22 06:51 Dose: 21 mg Documented By: LINSEY Omeprazole (Omeprazole 40 Mg Capsule.Dr) 40 mg PO DAILY@0630 [facility] Last Admin: 08/12/22 06:39 Dose: 40 mg Documented By: LINSEY Ondansetron HCl (Ondansetron Hcl 4 Mg/2 Ml Vial) 4 mg IVPUSH Q8H PRN PRN Reason: Nausea and Vomiting Pharmacy Consult (Consult Rx Perform Med Rec) 1 each MISCELLANE ONCE PRN PRN Reason: Consult order Sodium Chloride (0.9 % Sodium Chloride Flush 3 Ml Syringe) 3 ml IVFLUSH QSHIFT [facility] Last Admin: 08/12/22 06:42 Dose: 3 ml Documented By: LINSEY Tiotropium [place] (Tiotropium [place] 18 Mcg Cap.W.Dev) 2 puff INHALE RDAILY [facility] Trazodone HCl (Trazodone Hcl 50 Mg Tablet) 50 mg PO BEDTIME [facility] Last Admin: 08/11/22 21:07 Dose: 50 mg Documented By: FER Labs CBC & Chem 7: 08/12/22 07:07 08/12/22 07:07 Labs: Laboratory Results - last 24 hr 08/11/22 08/11/22 08/11/22 15:59 17:16 19:56 MCV MCH MCHC RDW Plt Count MPV Immature Gran % (Auto) Neut % (Auto) Lymph % (Auto) Morrill % (Auto) Eos % (Auto) Baso % (Auto) Lymph # (Auto) [place] # (Auto) Eos # (Auto) Baso # (Auto) Abs Immat Gran (auto) Absolute Neuts (auto) Absolute Nucleated RBC Nucleated RBC % (auto) Anion Gap Estim Creat Clear Calc Estimated GFR POC Glucose 207 H 235 H Random Glucose Calcium Magnesium Troponin I High Sens 11.9 B-Natriuretic Peptide 08/12/22 08/12/22 08/12/22 07:07 07:07 07:07 MCV 84.7 MCH 28.2 MCHC 33.2 RDW 15.9 Plt Count 399 MPV 9.4 Immature Gran % (Auto) 0.6 H Neut % (Auto) 78.5 H Lymph % (Auto) 13.1 L Morrill % (Auto) 5.2 Eos % (Auto) 2.4 Baso % (Auto) 0.2 Lymph # (Auto) 2.3 [place]rill # (Auto) 0.9 Eos # (Auto) 0.4 Baso # (Auto) 0.0 Abs Immat Gran (auto) 0.10 H Absolute Neuts (auto) 13.6 H Absolute Nucleated RBC 0.000 Nucleated RBC % (auto) 0.0 Anion Gap 17 Estim Creat Clear Calc 48.8 Estimated GFR 46 POC Glucose Random Glucose 242 H Calcium 9.6 D Magnesium 1.7 Troponin I High Sens B-Natriuretic Peptide 304 H 08/12/22 08/12/22 07:14 11:10 MCV MCH MCHC RDW Plt Count MPV Immature Gran % (Auto) Neut % (Auto) Lymph % (Auto) [place] % (Auto) Eos % (Auto) Baso % (Auto) Lymph # (Auto) [place] # (Auto) Eos # (Auto) Baso # (Auto) Abs Immat Gran (auto) Absolute Neuts (auto) Absolute Nucleated RBC Nucleated RBC % (auto) Anion Gap Estim Creat Clear Calc Estimated GFR POC Glucose 235 H 135 H Random Glucose Calcium Magnesium Troponin I High Sens B-Natriuretic Peptide Microbiology Microbiology Results: Microbiology 08/11/22 09:59 Blood Culture - Preliminary Blood - Venous No growth after 24 hours. 08/11/22 09:21 Blood Culture - Preliminary Blood - Venous No growth after 24 hours. Assessment and Plan (1) Uncontrolled hypertension: Status: Acute (2) Acute on chronic diastolic (congestive) heart failure: Status: Acute Plan This is a 47 year old male with history of diabetes, PAD, hypertension, HLD, COPD on 3 L home O2, recent admission for COPD/CHF/PNA who returns to the ED with shortness of breath found to be in CHF Acute on chronic respiratory failure with hypoxia secondary to CHF briefly requiring bipap, now on 4L NC (on 3L at baseline) Acute on chronic HFpEF previous echo with preserved EF, restrictive pattern although CXR appears improved from previous, clinically appears to be in CHF negative 1.7 liters, leg edema improved, BNP trending down -will transition back to po lasix -seen by cardiology Hypomagnesemia improved given 2 gm mag in ED Leukocytosis appears somewhat chronic CT showing improvement in aeration from previous imaging afebrile, UA negative no obvious source of infection at this time CKD3 Creatinine trending up slightly, but within range from last admission -follow BMP DM no longer on insulin pump continue basal/bolus Anemia H/H stable compared to last admission outpatient EGD/colonoscopy scheduled HTN BP continues to be elevated Continue metoprolol, Norvasc, lisinopril -add hydralazine COPD no acute exacerbation at this time HLD continue statin PVD continue statin asa was held on last admit Mood continue lexapro Tobacco dependence smoking cessation advised NRT YARELIS continue CPAP- needs to follow up with pulmonology outpatient, has not yet received CPAP machine for home dvt ppx - lovenox attending - dr. Cifuentes Patient will likely require 2 midnight stay in the hospital for management of acute on chronic CHF, BP control Quality Stroke Does the patient have a stroke diagnosis?: No VTE Prior VTE?: No VTE Risk Level:: Medical - moderate - high VTE Device Contraindication: Treatment Not Indicated VTE Drug Contraindication: N/A - Med Ordered
[2022-08-12 15:22] VITALS: BP 160/90; PULSE 81; RESP 18; TEMP 36.6; O2SAT 99
[2022-08-12 15:50] LABS: Glucose, Whole Blood 300 mg/dL (60-115)
[2022-08-12] MEDS: Enoxaparin Sodium 40 MG/0.4 ML SYRINGE SUBCUT (15:53)
[2022-08-12 20:00] VITALS: BP 168/78; PULSE 78; RESP 19; TEMP 37.1; O2SAT 98
[2022-08-12 20:22] LABS: Glucose, Whole Blood 184 mg/dL (60-115)
[2022-08-12] MEDS: Insulin Glargine,Hum.rec.anlog 100 UNIT/ML 10 ML VIAL 15 UNIT SUBCUT (20:29)
[2022-08-12] MEDS: traZODone HCL 50 MG TABLET PO (20:29)
[2022-08-12 23:44] VITALS: BP 165/82; PULSE 78; RESP 20; TEMP 36.6; O2SAT 97
[2022-08-13] MEDS: 0.9 % Sodium Chloride Flush 3 ML SYRINGE IVFLUSH ×2 (00:42→08:45)
[2022-08-13 03:04] VITALS: BP 155/80; PULSE 78; RESP 20; TEMP 37; O2SAT 96
[2022-08-13] MEDS: Omeprazole 40 MG CAPSULE.DR PO (06:37)
[2022-08-13 07:34] LABS: Glucose, Whole Blood 141 mg/dL (60-115)
[2022-08-13 07:44] VITALS: BP 177/87; PULSE 75; RESP 20; TEMP 36.6; O2SAT 95
[2022-08-13 08:11] VITALS: PULSE 82; RESP 18; O2SAT 98
[2022-08-13 08:38] LABS: Anion Gap 18 (12-20); Blood Urea Nitrogen 17 mg/dL (9-16); Calcium 8.8 mg/dL (8.4-10.2); Carbon Dioxide 23 mmol/L (22-29); Chloride 101 mmol/L (96-108); Creatinine Clr Calc Pharmacy 53.8; Estimated Glomerular Filt Rate 52; Glucose Random 149 mg/dL (60-115); Potassium 4.2 mmol/L (3.3-5.1); Sodium 138 mmol/L (135-145)
[2022-08-13] MEDS: Nicotine 21 MG PATCH.TD24 TRANSDERMA (08:43)
[2022-08-13] MEDS: lisinopriL 40 MG TABLET PO (08:44)
[2022-08-13] MEDS: Furosemide 20 MG TABLET PO (08:44)
[2022-08-13] MEDS: Atorvastatin Calcium 40 MG TABLET PO (08:44)
[2022-08-13] MEDS: Escitalopram Oxalate 10 MG TABLET PO (08:44)
[2022-08-13] MEDS: Metoclopramide HCl 10 MG TABLET PO ×2 (08:44→12:07)
[2022-08-13] MEDS: hydrALAZINE HCl 50 MG TABLET PO (08:44)
[2022-08-13] MEDS: Metoprolol Succinate ER 100 MG TAB.ER.24H PO (08:44)
[2022-08-13] MEDS: amLODIPine Besylate 10 MG TABLET PO (08:44)
[2022-08-13] MEDS: Gabapentin 300 MG CAPSULE PO (08:45)
[2022-08-13] MEDS: Ferrous Sulfate 324 MG TABLET.DR PO (08:45)
[2022-08-13 11:29] VITALS: BP 145/84; PULSE 81; RESP 18; TEMP 36.6; O2SAT 97
[2022-08-13 11:29] LABS: Glucose, Whole Blood 237 mg/dL (60-115)
[2022-08-13] MEDS: Insulin Lispro 100 UNIT/ML 3 ML VIAL SUBCUT (12:07)
--- NOTE | 2022-08-13 12:15 | PM.DS ---
DS: Providers Provider Date of Service: 08/13/22 Date of admission: 08/11/22 14:52 Primary care physician: Zari Henry MD Consults: 08/11/22 15:04 Consult to Cardiology Routine Consulting Provider: Donaldo Armas Reason for consultation: chf Has provider been notified: No Attending physician on discharge: Garret Cifuentes Discharging clinician: Unique Rey DS: Diagnosis Discharge Diagnosis (1) Uncontrolled hypertension: Status: Acute (2) Acute on chronic diastolic (congestive) heart failure: Status: Acute DS: Summary Hospital Course Hospital Course: HP as per admitting provider This is a 47 year old male with history of COPD on 3L supplemental oxygen who presents to the emergency department with shortness of breath.? Patient was admitted earlier in the month and treated for CHF, COPD and pneumonia.? He was discharged with oral antibiotics.? He has been having persistent shortness of breath especially with exertion.? He reports orthopnea and PND.? He denies chest pain or palpitations.? Yesterday afternoon his breathing got worse and this persisted today therefore he presented to the emergency department for evaluation.? On arrival he clinically appeared to be in CHF any received a dose of IV Lasix and was briefly placed on BiPAP.? He is urinated multiple times since and reports that his breathing has improved somewhat.? He was weaned off of BiPAP and is currently on 4 L nasal cannula.? Chest x-ray is similar to previous, BNP 471. Magnesium low at 1.4 and this was supplemented. 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 The patient will be admitted to the hospital with working diagnosis of CHF . Acute on chronic respiratory failure with hypoxia secondary to acute on chronic HFpEF. Resolved briefly requiring bipap, treated with oxygen, may continue home oxygen previous echo with preserved EF, restrictive pattern negative 1.7 liters continue home dose of Lasix Hypomagnesemia resolved Leukocytosis appears somewhat chronic CT showing improvement in aeration from previous imaging afebrile, UA negative no obvious source of infection at this time CKD3 Creatinine trending up slightly, but within range from last admission -follow BMP DM insulin pump at home continue basal/bolus Anemia H/H stable compared to last admission outpatient EGD/colonoscopy scheduled HTN Elevated blood pressure readings noted while inpatient Continue metoprolol, Norvasc, lisinopril and hydralazine COPD no acute exacerbation HLD continue statin PVD continue statin asa was held on last admit due to anemia Mood continue lexapro Tobacco dependence smoking cessation advised NRT YARELIS continue CPAP- needs to follow up with pulmonology outpatient, has not yet received CPAP machine for home Time Spent with Patient Time attestation: Total time spent providing and/or coordinating discharge services: Discharge coordination time: Greater than 30 minutes Quality: Safe Use of Opioids Does Pt have an Active Cancer Diagnosis on the Problem List?: No Quality: Stroke Does the patient have a stroke diagnosis?: No Physical Exam Vital Signs: Vital Signs: Last Vital Signs Temp 98 F 08/13/22 11:29 Pulse 81 08/13/22 11:29 Resp 18 08/13/22 11:29 BP 145/84 H 08/13/22 11:29 Pulse Ox 97 08/13/22 11:29 O2 Del Method 08/13/22 11:29 O2 Flow Rate 2 08/13/22 11:29 FiO2 28 08/11/22 13:06 Oxygen Flow Rate 3 08/11/22 09:05 BMI result Body Mass Index 24.2 Appearing in no acute distress head is normocephalic atraumatic eyes pupils are PERRLA sclera is anicteric mouth throat mucous membranes are intact and moist neck is supple no lymphadenopathy, no JVD noted lung sounds are clear to auscultation heart regular rate rhythm, clear S1, S2 positive bowel sounds, abdomen is soft, nontender neuro patient is alert x3, no focal deficits DS: Data Data Completed and Pending Completed studies during hospitalization [Text1]: Procedures Assistance with Respiratory Ventilation, Less than 24 Consecutive Hours, Continuous Positive Airway Pressure (07/31/22) Labs on day of discharge: Laboratory Results - last 24 hr 08/12/22 08/12/22 08/13/22 15:47 20:19 07:10 Sodium Potassium Chloride Carbon Dioxide Anion Gap BUN Creatinine Estim Creat Clear Calc Estimated GFR POC Glucose 300 H 184 H 141 H Random Glucose Calcium 08/13/22 08/13/22 07:36 11:22 Sodium 138 Potassium 4.2 Chloride 101 Carbon Dioxide 23 Anion Gap 18 BUN 17 H Creatinine 1.46 H Estim Creat Clear Calc 53.8 Estimated GFR 52 POC Glucose 237 H Random Glucose 149 H D Calcium 8.8 D Preliminary micro results at discharge 08/11/22 09:59 Blood Culture - Preliminary Blood - Venous No growth after 48 hours. 08/11/22 09:21 Blood Culture - Preliminary Blood - Venous No growth after 48 hours. Discharge Plan Discharge Anticipated Discharge Date/Time: 08/13/22 11:41 Patient Disposition: Home, Self-Care Discharge Diagnosis: Acute on chronic respiratory failure with hypoxia Acute on chronic heart failure with preserved ejection fraction Hypomagnesemia Leukocytosis Referrals: Zari Henry MD [Primary Care Provider] - 1 Week Discharge Medications: New insulin glargine [Lantus U-100 Insulin] 100 unit/mL Solution 15 unit subcut BEDTIME Qty: 10 0RF hydralazine 50 mg Tablet 50 mg PO TID Qty: 90 0RF Protocol: Hold for SBP< HOLD for SBP < : 90 Continued atorvastatin 40 mg tablet 1 tab PO DAILY trazodone 50 mg tablet 1 - 2 tab PO BEDTIME metoprolol succinate 100 mg tablet extended release 24 hr 1 tab PO DAILY omeprazole 40 mg capsule,delayed release(DR/EC) 1 cap PO DAILY aspirin 81 mg tablet,delayed release (DR/EC) 1 tab PO DAILY gabapentin 300 mg capsule 1 cap PO TID insulin lispro 100 unit/mL solution See Rx Instructions .ROUTE .COMPLEX Rx Instructions: insulin pump; use up to 100 units daily albuterol sulfate 90 mcg/actuation HFA aerosol inhaler 2 puff INHALATION Q6H lisinopril 40 mg tablet 1 tab PO DAILY metoclopramide HCl 10 mg tablet 1 tab PO QID escitalopram oxalate 10 mg tablet 1 tab PO DAILY Spiriva Respimat 1.25 mcg/actuation mist 2 puff INHALATION DAILY ipratropium-albuterol 0.5 mg-3 mg(2.5 mg base)/3 mL Solution For Nebulization 3 ml inhalation Q8H 30 Days Qty: 180 1RF amlodipine 10 mg Tablet 10 mg PO DAILY 30 Days Qty: 30 0RF Protocol: Hold for SBP< HOLD for SBP < : 90 nicotine 21 mg/24 hr Patch 24 Hour 21 mg transdermal DAILY 30 Days Qty: 28 5RF ferrous sulfate 324 mg (65 mg iron) Tablet,Delayed Release (Dr/Ec) 324 mg PO DAILY 30 Days Qty: 30 0RF furosemide 20 mg tablet 20 mg PO QAM Qty: 30 0RF Discontinued doxycycline monohydrate 100 mg capsule 100 mg PO BID Qty: 10 0RF Discharge Orders: Discharge Order (Routine); Ordered 08/13/22 Ordered By: Unique Rey Diet: Advance to usual diet Activity on Discharge: As tolerated Stand Alone Forms: Patient Portal Discharge page Care Plan Goals: Complete resolution of symptoms Health Concerns: Acute on chronic respiratory failure with hypoxia Acute on chronic heart failure with preserved ejection fraction Hypomagnesemia Leukocytosis Plan of Treatment: Follow-up with primary care provider as needed Take all medications as prescribed Assessment: See discharge summary
--- NOTE | 2022-08-13 12:26 | MHC.CM.PN ---
Male 47 DX HF He is discharged to home self care today. He has arranged for family transport home.
== END 2022-08-13 13:00 | disposition home or self-care (01) | DRG 194 ==
LOC: HO.ED 11:59 → HO.EDOVER 15:09 → HO.IMC 16:42
PROVIDERS: Admitting Provider Physician Assistant Medical; Emergency Provider Student in an Organized Health Care Education/Training Program; PCP Internal Medicine; Responsible Provider Nurse Practitioner Acute Care; Visit Provider Nurse Practitioner Acute Care
DX: I13.0 Hypertensive heart and chronic kidney disease with heart failure and stage 1 through stage 4 chronic kidney disease, or unspecified chronic kidney disease (principal); J96.01 Acute respiratory failure with hypoxia; D63.1 Anemia in chronic kidney disease; E11.22 Type 2 diabetes mellitus with diabetic chronic kidney disease; E11.51 Type 2 diabetes mellitus with diabetic peripheral angiopathy without gangrene; D72.829 Elevated white blood cell count, unspecified; N18.30 Chronic kidney disease, stage 3 unspecified; I50.33 Acute on chronic diastolic (congestive) heart failure; E83.42 Hypomagnesemia; G47.33 Obstructive sleep apnea (adult) (pediatric); F41.9 Anxiety disorder, unspecified; F17.210 Nicotine dependence, cigarettes, uncomplicated; Z20.822 Contact with and (suspected) exposure to COVID-19; Z91.199 Patient's noncompliance with other medical treatment and regimen due to unspecified reason; Z56.0 Unemployment, unspecified; Z71.6 Tobacco abuse counseling; Z99.81 Dependence on supplemental oxygen; Z88.8 Allergy status to other drugs, medicaments and biological substances; Z79.4 Long term (current) use of insulin; Z79.82 Long term (current) use of aspirin; Z79.899 Other long term (current) drug therapy
CPT/HCPCS: 36415; 71045; 71250; 80048; 80053; 81001; 81003; 82077; 82803; 82947; 83605; 83735; 83880; 84484; 85025; 85610; 87040; 87502; 87635; 93005; 94640; 94660; 99285; J1650; J1940; J3475

== ENCOUNTER 2022-08-17 13:19 | Inpatient (IN) | payer OTHER, SELFPAY ==
[2022-08-17] VITALS (7 sets, daily range): BP systolic 143–161; BP diastolic 76–85; PULSE 87–94; RESP 16–26; TEMP 36.3–37.4; O2SAT 89–94; BMI 22.4
--- NOTE | ~2022-08-17 | XR_ITS ---
EXAMINATION: XR CHEST CLINICAL INFORMATION: Shortness of breath. COMPARISON: 08/11/[address] chest [address] chest CT. TECHNIQUE: Frontal view of the chest was obtained. FINDINGS: Increased bony vascular markings and patchy opacities are seen. Increased linear opacities are seen in the right upper lobe. Persistent bibasilar opacification. The heart and mediastinal structures are unremarkable. XR/XR chest 1V IMPRESSION: Small bilateral pleural effusion and scattered infiltrates with increased atelectasis/infiltrate in the right upper lobe suggesting an infectious/inflammatory process. A cardiogenic component cannot be excluded.
--- NOTE | 2022-08-17 13:42 | ECG_ITS ---
Test Reason : dyspnea Blood Pressure : / mmHG Vent. Rate : 091 BPM Atrial Rate : 091 BPM P-R Int : 140 ms QRS Dur : 074 ms QT Int : 364 ms P-R-T Axes : 060 057 057 degrees QTc Int : 447 ms Normal sinus rhythm RSR' or QR pattern in V1 suggests right ventricular conduction delay Otherwise normal ECG When compared with ECG of 11-AUG-2022 10:31, No significant change was found Referred By: Elina Aguirre Electronically Signed By:YULISSA MUNROE MD
--- NOTE | 2022-08-17 13:43 | ECG_ITS ---
Test Reason : sob Blood Pressure : / mmHG Vent. Rate : 091 BPM Atrial Rate : 091 BPM P-R Int : 144 ms QRS Dur : 086 ms QT Int : 374 ms P-R-T Axes : 058 051 047 degrees QTc Int : 460 ms Normal sinus rhythm Minimal voltage criteria for LVH, may be normal variant ( Sokolow-Ahmadi ) Borderline ECG When compared with ECG of 17-AUG-2022 13:50, No significant change was found Referred By: Elina Aguirre Electronically Signed By:YULISSA MUNROE MD
--- NOTE | 2022-08-17 13:49 | PHA.MEDREC ---
Pharmacy Consult ? Medication Reconciliation Pharmacy has completed the medication reconciliation. Patient just discharge 08/13 from [facility] [place]. Med rec completed using discharge summary. Breann Lamb, JoshuaD
[2022-08-17 13:55] LABS: MANUAL DIFF FLAG NO
--- NOTE | 2022-08-17 14:03 | ED_ITS ---
HPI - SOB/Dyspnea General Chief Complaint: Dyspnea Stated Complaint: DIFF BREATHING/CP Time Seen by Provider: 08/17/22 13:43 Source: patient Mode of arrival: EMS History of Present Illness HPI Narrative: 47-year-old male arrives via EMS with complaints of increasing shortness of breath overnight and was found to have oxygenation of 88% on room air. Patient was this discharged on 08/13 when he was treated for CHF, pneumonia, COPD. Brigida ent does states that he has had some alcoholic beverages between his discharge an admission today and states he has continued to smoke was well. Related Data Home Medications Medication Instructions Recorded Confirmed albuterol sulfate 90 mcg/actuation 2 puff inhalation Q6H 08/01/22 08/17/22 aerosol inhaler aspirin 81 mg tablet,delayed 1 tab PO DAILY 08/01/22 08/17/22 release atorvastatin 40 mg tablet 1 tab PO DAILY 08/01/22 08/17/22 escitalopram oxalate 10 mg tablet 1 tab PO DAILY 08/01/22 08/17/22 gabapentin 300 mg capsule 1 cap PO TID 08/01/22 08/17/22 insulin lispro 100 unit/mL See Rx Instructions .Route .COMPLEX 08/01/22 08/17/22 subcutaneous solution lisinopril 40 mg tablet 1 tab PO DAILY 08/01/22 08/17/22 metoclopramide HCl 10 mg tablet 1 tab PO QID 08/01/22 08/17/22 metoprolol succinate 100 mg 1 tab PO DAILY 08/01/22 08/17/22 tablet,extended release 24 hr omeprazole 40 mg capsule,delayed 1 cap PO DAILY 08/01/22 08/17/22 release tiotropium bromide 1.25 2 puff inhalation DAILY 08/01/22 08/17/22 mcg/actuation mist for inhalation (Spiriva Respimat) trazodone 50 mg tablet 1 - 2 tab PO BEDTIME 08/01/22 08/17/22 Previous Rx's Medication Instructions Recorded amlodipine 10 mg tablet 10 mg PO DAILY 30 days #30 tabs 08/07/22 ferrous sulfate 324 mg (65 mg 324 mg PO DAILY 30 days #30 tabs 08/07/22 iron) tablet,delayed release furosemide 20 mg tablet 20 mg PO QAM #30 tabs 08/07/22 ipratropium 0.5 mg-albuterol 3 mg 3 ml inhalation Q8H 30 days #180 mL 08/07/22 (2.5 mg base)/3 mL nebulization soln nicotine 21 mg/24 hr daily 21 mg transdermal DAILY 30 days 08/07/22 transdermal patch #28 ea hydralazine 50 mg tablet 50 mg PO TID #90 tabs 08/13/22 insulin glargine 100 unit/mL 15 unit (0.15 mL) subcut BEDTIME 08/13/22 subcutaneous solution (Lantus #10 mL U-100 Insulin) Allergies Allergy/AdvReac Type Severity Reaction Status Date / Time dulaglutide [From Trulicity] Allergy Unknown Verified 01/02/22 21:08 metformin [METFORMIN] AdvReac Mild DIARRHEA, Verified 09/22/20 13:18 nausea and vomiting Review of Systems Review of Systems: Pertinent positives and negatives as stated in HPI 10 point review of systems otherwise negative. [facility] Past Medical History Source: nursing notes reviewed Medical History Acute on chronic anemia Acute on chronic diastolic (congestive) heart failure Anxiety Asthma Congestive heart failure Diabetes HLD (hyperlipidemia) HTN (hypertension) Hypercholesteremia Hyperglycemia due to type 2 diabetes mellitus YARELIS (obstructive sleep apnea) PAD (peripheral artery disease) Uncontrolled hypertension Surgical History S/P angiogram of extremity Family History Family History Father Alzheimer disease CAD (coronary artery disease) Social History Social History Household Members: Family Housing: Apartment Do you presently have visiting nurse or other home services: No Alcohol intake: current Alcohol intake frequency: a few times a month Patient Tobacco Use Status: Current everyday Tobacco user Tobacco use type: Cigarette Cigarettes Per Day: 10 Years Smoked: 29 e-Cigarette/Vaping Use: Never Used Second Hand Smoke Exposure: Yes Substance Use Type: Marijuana Advance Directives: Yes Advance Directives on File: Yes Advance Directives Date on File: 06/21/21 service: No Current occupational status: disabled Physical Exam Vital Signs: Vital Signs: Last Vital Signs Temp 98.1 F 08/17/22 13:40 Pulse 87 08/17/22 14:26 Resp 18 08/17/22 14:26 BP 143/78 H 08/17/22 13:40 Pulse Ox 91 L 08/17/22 13:40 O2 Del Method 08/17/22 13:40 Oxygen Flow Rate 4 08/17/22 13:40 BMI result Body Mass Index 22.4 VITAL SIGNS: Reviewed. GENERAL: Well developed, well nourished, in no acute distress. HEAD: Normocephalic/atraumatic EYES: PERRLA, EOMI EARS: Ext canals without abnormality OROPHARYNX: no oral lesions noted, posterior pharynx clear LUNGS: Bibasilar decrease, tachypnea. SpO2<91> 4 L nasal cannula CARDIOVASCULAR: Regular rate and rhythm without noted murmurs, no JVD or lower extremity edema. ABDOMEN: Soft, non-tender, non-distended with bowel sounds. MUSCULOSKELETAL: No tenderness, deformities, or effusions noted on gross inspection. EXTREMITIES: No cyanosis, clubbing or edema. SKIN: Inspection of the skin reveals no rashes NEUROLOGIC: Alert and oriented x 4. Strength and sensation to light touch were grossly intact x 4. Course Course Course Narrative: 47-year-old male with history and clinical presentation consistent with hypoxia and will rule out worsening pneumonia, COPD, CHF exacerbation. On review of all investigations patient has leukocytosis appears to be chronic at baseline and he is currently afebrile. Review of VBG does not indicate that COPD is likely a major factor and instead most consistent with CHF exacerbation. Patient given diuretics and currently on 2 L nasal cannula. I discussed this case with the inpatient hospitalist who accepts admission. MDM - SOB/Dyspnea Lab Data Result diagrams: 08/17/22 13:49 08/17/22 13:49 Labs: Lab Results 08/17/22 08/17/22 08/17/22 Range/Units 13:49 13:49 13:49 WBC 18.2 H (4.8-10.8) X10*3/uL RBC 3.60 L (4.60-5.80) X10*6/uL Hgb 9.7 L (14.0-18.0) g/dl Hct 29.8 L (42.0-52.0) % MCV 82.8 (80.0-98.0) fL MCH 26.9 L (27.0-33.0) pg MCHC 32.6 (31.0-36.0) g/dl RDW 15.9 (11.0-16.0) % Plt Count 357 (160-400) X10*3/uL MPV 10.1 (9.4-12.4) fL Immature Gran % (Auto) 0.6 H (0.0-0.4) % Neut % (Auto) 85.8 H (45-73) % Lymph % (Auto) 7.5 L (20-40) % [place] % (Auto) 5.1 (2-11) % Eos % (Auto) 0.8 (0-4) % Baso % (Auto) 0.2 (0-2) % Lymph # (Auto) 1.4 (1.2-4.9) X10*3/uL [place] # (Auto) 0.9 (0.1-1.2) X10*3/uL Eos # (Auto) 0.2 (0.0-0.4) X10*3/uL Baso # (Auto) 0.0 (0.0-0.2) X10*3/uL Abs Immat Gran (auto) 0.11 H (0.00-0.03) X10*3/uL Absolute Neuts (auto) 15.6 H (2.0-8.3) x10*3/uL Absolute Nucleated RBC 0.000 (0.0-0.012) X10*3/uL Nucleated RBC % (auto) 0.0 (0.0-0.2) /100WBC PT (10.0-13.1) SEC INR (0.9-1.1) VBG pH (7.32-7.43) VBG pCO2 mmHg VBG pO2 mmHg VBG HCO3 (22-26) mmol/L VBG O2 Saturation % VBG Base Excess mmol/L Sodium 139 (135-145) mmol/L Potassium 4.7 (3.3-5.1) mmol/L Chloride 109 H (96-108) mmol/L Carbon Dioxide 17 L (22-29) mmol/L Anion Gap 18 (12-20) BUN 21 H (9-16) mg/dL Creatinine 1.62 H (0.5-1.4) mg/dL Estim Creat Clear Calc 48.2 Estimated GFR 46 Random Glucose 308 H D (60-115) mg/dL Lactic Acid (0.5-2.0) mmol/L Calcium 8.4 (8.4-10.2) mg/dL Total Bilirubin 0.3 (0.0-1.0) mg/dL AST 15 (5-37) U/L ALT 17 (0-40) U/L Alkaline Phosphatase 100 (39-117) U/L Troponin I High Sens 8.3 (<3.5-35.0) ng/L B-Natriuretic Peptide 920 H (<100) pg/mL Total Protein 6.5 (6.5-8.0) g/dL Albumin 3.6 (3.5-5.0) g/dL COVID-19 (XANDER) (Negative) COVID-19 Clin Com 08/17/22 08/17/22 08/17/22 Range/Units 13:49 13:53 14:18 WBC (4.8-10.8) X10*3/uL RBC (4.60-5.80) X10*6/uL Hgb (14.0-18.0) g/dl Hct (42.0-52.0) % MCV (80.0-98.0) fL MCH (27.0-33.0) pg MCHC (31.0-36.0) g/dl RDW (11.0-16.0) % Plt Count (160-400) X10*3/uL MPV (9.4-12.4) fL Immature Gran % (Auto) (0.0-0.4) % Neut % (Auto) (45-73) % Lymph % (Auto) (20-40) % [place] % (Auto) (2-11) % Eos % (Auto) (0-4) % Baso % (Auto) (0-2) % Lymph # (Auto) (1.2-4.9) X10*3/uL [place] # (Auto) (0.1-1.2) X10*3/uL Eos # (Auto) (0.0-0.4) X10*3/uL Baso # (Auto) (0.0-0.2) X10*3/uL Abs Immat Gran (auto) (0.00-0.03) X10*3/uL Absolute Neuts (auto) (2.0-8.3) x10*3/uL Absolute Nucleated RBC (0.0-0.012) X10*3/uL Nucleated RBC % (auto) (0.0-0.2) /100WBC PT 11.4 (10.0-13.1) SEC INR 1.0 (0.9-1.1) VBG pH 7.43 (7.32-7.43) VBG pCO2 27 mmHg VBG pO2 82 mmHg VBG HCO3 18 L (22-26) mmol/L VBG O2 Saturation 95.0 % VBG Base Excess -4.4 mmol/L Sodium (135-145) mmol/L Potassium (3.3-5.1) mmol/L Chloride (96-108) mmol/L Carbon Dioxide (22-29) mmol/L Anion Gap (12-20) BUN (9-16) mg/dL Creatinine (0.5-1.4) mg/dL Estim Creat Clear Calc Estimated GFR Random Glucose (60-115) mg/dL Lactic Acid (0.5-2.0) mmol/L Calcium (8.4-10.2) mg/dL Total Bilirubin (0.0-1.0) mg/dL AST (5-37) U/L ALT (0-40) U/L Alkaline Phosphatase (39-117) U/L Troponin I High Sens (<3.5-35.0) ng/L B-Natriuretic Peptide (<100) pg/mL Total Protein (6.5-8.0) g/dL Albumin (3.5-5.0) g/dL COVID-19 (XANDER) Negative (Negative) COVID-19 Clin Com See Note 08/17/22 Range/Units 14:18 WBC (4.8-10.8) X10*3/uL RBC (4.60-5.80) X10*6/uL Hgb (14.0-18.0) g/dl Hct (42.0-52.0) % MCV (80.0-98.0) fL MCH (27.0-33.0) pg MCHC (31.0-36.0) g/dl RDW (11.0-16.0) % Plt Count (160-400) X10*3/uL MPV (9.4-12.4) fL Immature Gran % (Auto) (0.0-0.4) % Neut % (Auto) (45-73) % Lymph % (Auto) (20-40) % [place] % (Auto) (2-11) % Eos % (Auto) (0-4) % Baso % (Auto) (0-2) % Lymph # (Auto) (1.2-4.9) X10*3/uL [place] # (Auto) (0.1-1.2) X10*3/uL Eos # (Auto) (0.0-0.4) X10*3/uL Baso # (Auto) (0.0-0.2) X10*3/uL Abs Immat Gran (auto) (0.00-0.03) X10*3/uL Absolute Neuts (auto) (2.0-8.3) x10*3/uL Absolute Nucleated RBC (0.0-0.012) X10*3/uL Nucleated RBC % (auto) (0.0-0.2) /100WBC PT (10.0-13.1) SEC INR (0.9-1.1) VBG pH (7.32-7.43) VBG pCO2 mmHg VBG pO2 mmHg VBG HCO3 (22-26) mmol/L VBG O2 Saturation % VBG Base Excess mmol/L Sodium (135-145) mmol/L Potassium (3.3-5.1) mmol/L Chloride (96-108) mmol/L Carbon Dioxide (22-29) mmol/L Anion Gap (12-20) BUN (9-16) mg/dL Creatinine (0.5-1.4) mg/dL Estim Creat Clear Calc Estimated GFR Random Glucose (60-115) mg/dL Lactic Acid 1.3 (0.5-2.0) mmol/L Calcium (8.4-10.2) mg/dL Total Bilirubin (0.0-1.0) mg/dL AST (5-37) U/L ALT (0-40) U/L Alkaline Phosphatase (39-117) U/L Troponin I High Sens (<3.5-35.0) ng/L B-Natriuretic Peptide (<100) pg/mL Total Protein (6.5-8.0) g/dL Albumin (3.5-5.0) g/dL COVID-19 (XANDER) (Negative) COVID-19 Clin Com ECG Data Attestation: I personally reviewed and interpreted this ECG as follows: Prior ECG tracings: available for review Interpretation: Normal sinus rhythm, HR-91, no STEMI, OH/QRS/QTC is within normal limits. Critical Care Time Critical Care Time Critical Care Time: Yes Total Critical Care Time: 30 Attestation: I personally attest to this time spent taking care of the patient. Discharge Plan Discharge Clinical Impression: Acute respiratory failure, KELVIN (acute kidney injury), Hypoxia, CHF exacerbation Patient Disposition: Admitted As Inpatient Prescriptions: No Action insulin glargine [Lantus U-100 Insulin] 100 unit/mL Solution 15 unit subcut BEDTIME Qty: 10 0RF hydralazine 50 mg Tablet 50 mg PO TID Qty: 90 0RF Protocol: Hold for SBP< HOLD for SBP < : 90 atorvastatin 40 mg tablet 1 tab PO DAILY trazodone 50 mg tablet 1 - 2 tab PO BEDTIME metoprolol succinate 100 mg tablet extended release 24 hr 1 tab PO DAILY omeprazole 40 mg capsule,delayed release(DR/EC) 1 cap PO DAILY aspirin 81 mg tablet,delayed release (DR/EC) 1 tab PO DAILY gabapentin 300 mg capsule 1 cap PO TID insulin lispro 100 unit/mL solution See Rx Instructions .ROUTE .COMPLEX Rx Instructions: insulin pump; use up to 100 units daily albuterol sulfate 90 mcg/actuation HFA aerosol inhaler 2 puff INHALATION Q6H lisinopril 40 mg tablet 1 tab PO DAILY metoclopramide HCl 10 mg tablet 1 tab PO QID escitalopram oxalate 10 mg tablet 1 tab PO DAILY Spiriva Respimat 1.25 mcg/actuation mist 2 puff INHALATION DAILY ipratropium-albuterol 0.5 mg-3 mg(2.5 mg base)/3 mL Solution For Nebulization 3 ml inhalation Q8H 30 Days Qty: 180 1RF amlodipine 10 mg Tablet 10 mg PO DAILY 30 Days Qty: 30 0RF Protocol: Hold for SBP< HOLD for SBP < : 90 nicotine 21 mg/24 hr Patch 24 Hour 21 mg transdermal DAILY 30 Days Qty: 28 5RF ferrous sulfate 324 mg (65 mg iron) Tablet,Delayed Release (Dr/Ec) 324 mg PO DAILY 30 Days Qty: 30 0RF furosemide 20 mg tablet 20 mg PO QAM Qty: 30 0RF
[2022-08-17 14:04] LABS: Prothrombin Time 11.4 SEC (10.0-13.1)
[2022-08-17 14:06] LABS: Basophils Percent Auto 0.2 % (0-2); Eosinophils Absolute Auto 0.2 X10*3/uL (0.0-0.4); Eosinophils Percent Auto 0.8 % (0-4); Hematocrit 29.8 % (42.0-52.0); Hemoglobin 9.7 g/dl (14.0-18.0); Imm Gran Abs Auto 0.11 X10*3/uL (0.00-0.03); Imm Gran Pct Auto 0.6 % (0.0-0.4); Lymphocytes Absolute Auto 1.4 X10*3/uL (1.2-4.9); Lymphocytes Percent Auto 7.5 % (20-40); Mean Corpuscular HGB Conc 32.6 g/dl (31.0-36.0); Mean Corpuscular Hemoglobin 26.9 pg (27.0-33.0); Mean Corpuscular Volume 82.8 fL (80.0-98.0); Mean Platelet Volume 10.1 fL (9.4-12.4); Monocytes Absolute Auto 0.9 X10*3/uL (0.1-1.2); Monocytes Percent Auto 5.1 % (2-11); Neutrophils Absolute Auto 15.6 x10*3/uL (2.0-8.3); Neutrophils Percent Auto 85.8 % (45-73); Platelet Count 357 X10*3/uL (160-400); Red Cell Distribution Width 15.9 % (11.0-16.0); White Blood Count 18.2 X10*3/uL (4.8-10.8)
[2022-08-17 14:08] LABS: VBG Base Excess -4.4 mmol/L; VBG HCO3 18 mmol/L (22-26); VBG pCO2 27 mmHg; VBG pH 7.43 (7.32-7.43); VBG pO2 82 mmHg
[2022-08-17 14:09] LABS: Venous Blood Gas Refer to POC result
[2022-08-17 14:14] LABS: Alanine Aminotransferase 17 U/L (0-40); Albumin Level 3.6 g/dL (3.5-5.0); Alkaline Phosphatase 100 U/L (39-117); Anion Gap 18 (12-20); Aspartate Amino Transferase 15 U/L (5-37); Bilirubin Total 0.3 mg/dL (0.0-1.0); Blood Urea Nitrogen 21 mg/dL (9-16); Calcium 8.4 mg/dL (8.4-10.2); Carbon Dioxide 17 mmol/L (22-29); Chloride 109 mmol/L (96-108); Creatinine Clr Calc Pharmacy 48.2; Estimated Glomerular Filt Rate 46; Glucose Random 308 mg/dL (60-115); Potassium 4.7 mmol/L (3.3-5.1); Sodium 139 mmol/L (135-145); Total Protein 6.5 g/dL (6.5-8.0)
[2022-08-17 14:20] LABS: B Type Natriuretic Peptide 920 pg/mL (<100); Troponin-I High Sensitivity 8.3 ng/L (<3.5-35.0)
[2022-08-17] MEDS: Albuterol Sulfate 2.5 MG, Albuterol Sulfate (0.083%) 2.5 MG 5 MG INHALE (14:23)
[2022-08-17 14:36] LABS: Lactic Acid 1.3 mmol/L (0.5-2.0)
[2022-08-17] MEDS: Furosemide 100 MG/10 ML VIAL 60 MG IVPUSH (14:38)
[2022-08-17] MEDS: methylPREDNISolone Sod Succ 125 MG/2 ML VIAL IVPUSH (14:38)
[2022-08-17 14:43] LABS: COVID-19 Test Negative (Negative); IDNOW Serial# 9DB6401D
[2022-08-17] MEDS: Metoclopramide HCl 10 MG TABLET PO ×2 (15:37→20:43)
[2022-08-17] MEDS: Albuterol/Iprat 2.5/0.5MG 3 ML AMPUL.NEB INHALE ×2 (15:42→19:09)
[2022-08-17 15:57] LABS: Appearance Urine Clear; Color Urine Yellow; Glucose Urine UA 250 mg/dL (Negative); Leukocyte Esterase Urine Negative (Negative); Nitrite Urine Negative (Negative); PH 5.5 (5.0-9.0); UMIC TRIGGER UACC YES; Urine Blood Negative (Negative); Urine Ketones Negative (Negative); Urine Protein 100 (2+) mg/dL (Neg-Trace)
[2022-08-17 16:03] LABS: Bacteria Urine None Seen (None Seen); Hyaline Casts Urine 0-2 /LPF (0-2); RBC Urine 0-2 /HPF (0-2); Squamous Epithelial Cell Urine 0-2 /HPF (0-2); WBC Urine 0-5 /HPF (0-5)
[2022-08-17 16:22] LABS: Magnesium 1.3 mg/dL (1.6-2.6)
--- NOTE | 2022-08-17 16:27 | P.HPHOSP_ITS ---
History of Present Illness Date of Service: 08/17/22 Chief Complaint: dyspnea 47yo M with COPD on 2L O2 at home, YARELIS, HFpEF, DM2, and CKD3 who was admitted here 08/01-08/07/22 for multilobar PNA with COPD and CHF exacerbations and again admitted 08/11-08/13/22 for CHF exacerbation. Both times he briefly required Bi PAP in the ED but was weaned off. He does not yet have a CPAP machine. He presents today with worsening dyspnea for the past day. He smokes 6 cigarettes a day. EMS found his room air SaO2 to be 88%. In the ED, he required 4L O2 to maintain SaO2 of 91%. His WBC count is 18.2 but this appears to be chronic. BNP 920, up from 304 on 08/12/22. SCr 1.62, compared to 1.46 on 08/13/22 and 1.09 on 08/01/22. He was given IV furosemide and IV methylprednisolone as well as 5 mg of nebulized albuterol. Serum magnesium low at 1.3. Review of Systems Review of Systems: Yes all other systems are reviewed and are negative [facility] Medical History Acute on chronic anemia Acute on chronic diastolic (congestive) heart failure Anxiety Asthma Congestive heart failure Diabetes HLD (hyperlipidemia) HTN (hypertension) Hypercholesteremia Hyperglycemia due to type 2 diabetes mellitus YARELIS (obstructive sleep apnea) PAD (peripheral artery disease) Uncontrolled hypertension Family History Father Alzheimer disease CAD (coronary artery disease) Surgical History S/P angiogram of extremity Social History Household Members: Family Housing: Apartment Do you presently have visiting nurse or other home services: No Alcohol intake: current Alcohol intake frequency: a few times a month Patient Tobacco Use Status: Current everyday Tobacco user Tobacco use type: Cigarette Cigarettes Per Day: 10 Years Smoked: 29 e-Cigarette/Vaping Use: Never Used Second Hand Smoke Exposure: Yes Substance Use Type: Marijuana Advance Directives: Yes Advance Directives on File: Yes Advance Directives Date on File: 06/21/21 service: No Current occupational status: disabled Meds Allergies Allergy/AdvReac Type Severity Reaction Status Date / Time [facility] Allergy Unknown Verified 01/02/22 21:08 metformin [METFORMIN] AdvReac Mild DIARRHEA, Verified 09/22/20 13:18 nausea and vomiting Active Medications: Current Medications Acetaminophen (Acetaminophen 325 Mg Tablet) 650 mg PO Q6H PRN PRN Reason: Pain, Mild (Pain Scale 1-3) Albuterol Sulfate (Albuterol Sulfate (0.083%) 2.5 Mg/3 Ml Vial.Neb) 2.5 mg INHALE Q2H PRN PRN Reason: Shortness of Breath/Wheezing Albuterol/Ipratropium (Albuterol/Iprat 2.5/0.5mg 3 Ml Ampul.Neb) 3 ml INHALE RQ4H WHILE AWAKE [facility] Last Admin: 08/17/22 15:42 Dose: 3 ml Amlodipine Besylate (Amlodipine Besylate 10 Mg Tablet) [address] [facility]; Protocol Aspirin (Aspirin Enteric Coated 81 Mg Tablet.) [address] [facility] Atorvastatin Calcium (Atorvastatin Calcium 40 Mg Tablet) [address] [facility] Dextrose (Dextrose 50 % 25 Gm/50 Ml Syringe) 25 gm IVPUSH Q15M PRN; Protocol PRN Reason: per Hypoglycemia Standing Ord. Enoxaparin Sodium (Enoxaparin Sodium 40 Mg/0.4 Ml Syringe) [address] [facility] Escitalopram Oxalate (Escitalopram Oxalate 10 Mg Tablet) [address] [facility] Ferrous Sulfate (Ferrous Sulfate 324 Mg Tablet.) [address] [facility] Furosemide (Furosemide 40 Mg/4 Ml Vial) [address] [facility]; Protocol Gabapentin (Gabapentin 300 Mg Capsule) [address] [facility] Glucose (Glucose Gel 15 Gm Gel..Gram.) 15 gm PO Q15M PRN; Protocol PRN Reason: per Hypoglycemia Standing Ord. Hydralazine HCl (Hydralazine Hcl 50 Mg Tablet) [address] [facility]; Protocol Insulin Glargine (Insulin Glargine,Hum.Rec.Anlog 100 Unit/Ml 10 Ml Vial) [address] [facility] Insulin Human Lispro (Insulin Lispro 100 Unit/Ml 3 Ml Vial) [address] [facility]; Protocol Lisinopril (Lisinopril 40 Mg Tablet) [address] [facility]; Protocol Methylprednisolone Sodium Succinate (Methylprednisolone Sod Succ 40 Mg/Ml Vial) [address] [facility] Metoclopramide HCl (Metoclopramide Hcl 10 Mg Tablet) [address] [facility] Last Admin: 08/17/22 15:37 Dose: 10 mg Metoprolol Succinate (Metoprolol Succinate Er 100 Mg Tab.Er.24h) [address] [facility]; Protocol Nicotine (Nicotine 21 Mg Patch.Td24) [address] [facility] Omeprazole (Omeprazole 40 Mg Capsule.Dr) 40 mg PO DAILY@0630 [facility] Ondansetron HCl (Ondansetron Hcl 4 Mg/2 Ml Vial) 4 mg IVPUSH Q8H PRN PRN Reason: Nausea and Vomiting Sodium Chloride (0.9 % Sodium Chloride Flush 3 Ml Syringe) [address] [facility] Tiotropium Zill[place] (Tiotropium [place]ill[place] 18 Mcg Cap.W.Dev) [address] [facility] Trazodone HCl (Trazodone Hcl 50 Mg Tablet) [address] [facility] Home Medications Medication Instructions Recorded Confirmed Last Taken Type albuterol sulfate 90 mcg/actuation 2 puff inhalation Q6H 08/01/22 08/17/22 Unknown History aerosol inhaler aspirin 81 mg tablet,delayed 1 tab PO DAILY 08/01/22 08/17/22 Unknown History release atorvastatin 40 mg tablet 1 tab PO DAILY 08/01/22 08/17/22 Unknown History escitalopram oxalate 10 mg tablet 1 tab PO DAILY 08/01/22 08/17/22 Unknown History gabapentin 300 mg capsule 1 cap PO TID 08/01/22 08/17/22 Unknown History insulin lispro 100 unit/mL See Rx Instructions .Route .COMPLEX 08/01/22 08/17/22 Unknown History subcutaneous solution lisinopril 40 mg tablet 1 tab PO DAILY 08/01/22 08/17/22 Unknown History metoclopramide HCl 10 mg tablet 1 tab PO QID 08/01/22 08/17/22 Unknown History metoprolol succinate 100 mg 1 tab PO DAILY 08/01/22 08/17/22 Unknown History tablet,extended release 24 hr omeprazole 40 mg capsule,delayed 1 cap PO DAILY 08/01/22 08/17/22 Unknown History release tiotropium bromide 1.25 2 puff inhalation DAILY 08/01/22 08/17/22 Unknown History mcg/actuation mist for inhalation (Spiriva Respimat) trazodone 50 mg tablet 1 - 2 tab PO BEDTIME 08/01/22 08/17/22 Unknown History Physical Exam Vital Signs and Narrative: Vital Signs: Last Vital Signs Temp 99.3 F 08/17/22 15:33 Pulse 92 08/17/22 15:43 Resp 23 H 08/17/22 15:43 BP 161/85 H 08/17/22 15:33 Pulse Ox 91 L 08/17/22 15:33 O2 Del Method 08/17/22 15:33 O2 Flow Rate 3 08/17/22 15:33 Oxygen Flow Rate 4 08/17/22 13:40 BMI result Body Mass Index 22.4 Gen: moderate resp distress HEENT: sclera anicteric, moist mucus membranes Neck: supple Lungs: diminished bilatearlly, tachypneic, diffuse expiratory wheezing Heart: regular rate and rhythm, no murmurs Abd: soft, non-tender, non-distended Ext: no edema Skin: warm/well-perfused Neuro: alert and oriented x3, no focal findings Psych: appropriate affect Results Labs CBC and Chem 7: 08/17/22 13:49 08/17/22 13:49 Labs: Laboratory Results - last 24 hr 08/17/22 08/17/22 08/17/22 13:49 13:49 13:49 MCV 82.8 MCH 26.9 L MCHC 32.6 RDW 15.9 Plt Count 357 MPV 10.1 Immature Gran % (Auto) 0.6 H Neut % (Auto) 85.8 H Lymph % (Auto) 7.5 L [place] % (Auto) 5.1 Eos % (Auto) 0.8 Baso % (Auto) 0.2 Lymph # (Auto) 1.4 [place] # (Auto) 0.9 Eos # (Auto) 0.2 Baso # (Auto) 0.0 Abs Immat Gran (auto) 0.11 H Absolute Neuts (auto) 15.6 H Absolute Nucleated RBC 0.000 Nucleated RBC % (auto) 0.0 PT INR VBG pH VBG pCO2 VBG pO2 VBG HCO3 VBG O2 Saturation VBG Base Excess Anion Gap 18 Estim Creat Clear Calc 48.2 Estimated GFR 46 Random Glucose 308 H D Lactic Acid Calcium 8.4 Magnesium 1.3 L* Total Bilirubin 0.3 AST 15 ALT 17 Alkaline Phosphatase 100 Troponin I High Sens 8.3 B-Natriuretic Peptide 920 H Total Protein 6.5 Albumin 3.6 Urine Color Urine Appearance Urine pH Ur Specific [place] Urine Protein Urine Glucose (UA) Urine Ketones Urine Blood Urine Nitrite Ur Leukocyte Esterase Urine RBC Urine WBC Ur Squamous Epith Cells Urine Bacteria Hyaline Casts COVID-19 (XANDER) COVID-19 Clin Com 08/17/22 08/17/22 08/17/22 13:49 13:53 14:18 MCV MCH MCHC RDW Plt Count MPV Immature Gran % (Auto) Neut % (Auto) Lymph % (Auto) [place] % (Auto) Eos % (Auto) Baso % (Auto) Lymph # (Auto) [place] # (Auto) Eos # (Auto) Baso # (Auto) Abs Immat Gran (auto) Absolute Neuts (auto) Absolute Nucleated RBC Nucleated RBC % (auto) PT 11.4 INR 1.0 VBG pH 7.43 VBG pCO2 27 VBG pO2 82 VBG HCO3 18 L VBG O2 Saturation 95.0 VBG Base Excess -4.4 Anion Gap Estim Creat Clear Calc Estimated GFR Random Glucose Lactic Acid Calcium Magnesium Total Bilirubin AST ALT Alkaline Phosphatase Troponin I High Sens B-Natriuretic Peptide Total Protein Albumin Urine Color Urine Appearance Urine pH Ur Specific [place] Urine Protein Urine Glucose (UA) Urine Ketones Urine Blood Urine Nitrite Ur Leukocyte Esterase Urine RBC Urine WBC Ur Squamous Epith Cells Urine Bacteria Hyaline Casts COVID-19 (XANDER) Negative COVID-19 Clin Com See Note 08/17/22 08/17/22 14:18 15:37 MCV MCH MCHC RDW Plt Count MPV Immature Gran % (Auto) Neut % (Auto) Lymph % (Auto) [place] % (Auto) Eos % (Auto) Baso % (Auto) Lymph # (Auto) [place] # (Auto) Eos # (Auto) Baso # (Auto) Abs Immat Gran (auto) Absolute Neuts (auto) Absolute Nucleated RBC Nucleated RBC % (auto) PT INR VBG pH VBG pCO2 VBG pO2 VBG HCO3 VBG O2 Saturation VBG Base Excess Anion Gap Estim Creat Clear Calc Estimated GFR Random Glucose Lactic Acid 1.3 Calcium Magnesium Total Bilirubin AST ALT Alkaline Phosphatase Troponin I High Sens B-Natriuretic Peptide Total Protein Albumin Urine Color Yellow Urine Appearance Clear Urine pH 5.5 Ur Specific [place] 1.010 Urine Protein 100 (2+) H Urine Glucose (UA) 250 H Urine Ketones Negative Urine Blood Negative Urine Nitrite Negative Ur Leukocyte Esterase Negative Urine RBC 0-2 Urine WBC 0-5 Ur Squamous Epith Cells 0-2 Urine Bacteria None Seen Hyaline Casts 0-2 COVID-19 (XANDER) COVID-19 Clin Com Imaging Radiologist's Impressions: Impressions Chest X-Ray 08/17/22 14:00 IMPRESSION: Small bilateral pleural effusion and scattered infiltrates with increased atelectasis/infiltrate in the right upper lobe suggesting an infectious/inflammatory process. A cardiogenic component cannot be excluded. Assessment and Plan (1) Acute respiratory failure: Status: Acute Plan 47yo M with COPD on 2L O2 at home, YARELIS, HFpEF, DM2, and CKD3 who was admitted here 08/01-08/07/22 for multilobar PNA with COPD and CHF exacerbations and again admitted 08/11-08/13/22 for CHF exacerbation. Both times he briefly required BiPAP in the ED but was weaned off. He does not yet have a CPAP machine. He presents after 1 day of worsening dyspnea and is found to have hypoxia. # COPD exacerbation - admit to [facility], give IV glucocorticoids, give standing/prn nebs, check respiratory pathogen panel, continue tiotropium. suspect infiltrate on CXR is resolving PNA but will check PCT # acute hypoxic respiratory failure - wean O2 as tolerated, treat conditions above # acute/chronic HFpEF - diurese with IV furosemide, monitor electrolytes + I/O - antihypertensives as below # hypoMg - replete IV and start PO maintenance as this has been a recurrent problem for him # KELVIN/CKD3 - suspect cardiorenal; monitor SCr with dialysis # HTN - continue lisinopril, hydralazine, metoprolol succinate, and amlodipine # HLD - continue atorvastatin # DM2 - has Omnipod insulin pump at home but didn't bring it with him; will give basal/bolus insulin # neuropathy - continue gabapentin # gastroparesis - metoclopramide # mood disorder - continue escitalopram + trazodone # tobacco abuse - counseled cessation. give NRT # VTE prophylaxis: LMWH # code status: full I anticipate that the patient will stay at least 2 midnights in hospital due to the above reasons. It is neither reasonable nor safe to care for them in a less acute setting. Quality Stroke Does the patient have a stroke diagnosis?: No VTE Prior VTE?: No VTE Risk Level:: Medical - moderate - high VTE Device Contraindication: N/A - Device Ordered VTE Drug Contraindication: N/A - Med Ordered
[2022-08-17 17:14] LABS: Procalcitonin 0.04 ng/mL
[2022-08-17] MEDS: Enoxaparin Sodium 40 MG/0.4 ML SYRINGE SUBCUT (17:20)
[2022-08-17] MEDS: Magnesium Sulfate/H2O 2 GM/50 ML PIGGYBACK IV (17:20)
[2022-08-17] MEDS: Magnesium Oxide 400 MG TABLET PO (17:20)
[2022-08-17] MEDS: Nicotine 14 MG PATCH.TD24 TRANSDERMA (17:20)
[2022-08-17 17:27] LABS: Glucose, Whole Blood 275 mg/dL (60-115)
[2022-08-17] MEDS: Insulin Lispro 100 UNIT/ML 3 ML VIAL SUBCUT ×2 (17:43→21:15)
--- NOTE | 2022-08-17 20:00 | PC.NURSE ---
Care of patient assumed. He is alert, oriented x4. He states he feels winded just laying in bed not moving. Hx COPD usually wears 2L NC at bedtime, currently wearing 3L NC. O2 saturatios 92% on 3L NC with RR low to mid 20s. he currently denies pain. callbell within reach.
[2022-08-17] MEDS: traZODone HCL 50 MG TABLET PO (20:43)
[2022-08-17] MEDS: Gabapentin 300 MG CAPSULE PO (20:43)
[2022-08-17] MEDS: hydrALAZINE HCl 50 MG TABLET PO (20:44)
[2022-08-17] MEDS: Insulin Glargine,Hum.rec.anlog 100 UNIT/ML 10 ML VIAL 15 UNIT SUBCUT (20:44)
[2022-08-17 21:07] LABS: Glucose, Whole Blood 344 mg/dL (60-115)
[2022-08-18] VITALS (12 sets, daily range): BP systolic 106–146; BP diastolic 65–81; PULSE 75–99; RESP 16–23; TEMP 36.3–37.2; O2SAT 90–98; BMI 22.4
[2022-08-18] MEDS: methylPREDNISolone Sod Succ 40 MG/ML VIAL IVPUSH ×2 (02:08→14:22)
[2022-08-18] MEDS: 0.9 % Sodium Chloride Flush 3 ML SYRINGE IVFLUSH ×3 (02:09→16:58)
[2022-08-18] MEDS: Omeprazole 40 MG CAPSULE.DR PO (05:53)
[2022-08-18 06:19] LABS: VBG Base Excess -4.5 mmol/L; VBG HCO3 18 mmol/L (22-26); VBG pCO2 26 mmHg; VBG pH 7.44 (7.32-7.43); VBG pO2 150 mmHg
[2022-08-18 06:20] LABS: Venous Blood Gas Refer to POC result
[2022-08-18 06:28] LABS: Hematocrit 30.8 % (42.0-52.0); Hemoglobin 9.8 g/dl (14.0-18.0); Mean Corpuscular HGB Conc 31.8 g/dl (31.0-36.0); Mean Corpuscular Hemoglobin 26.7 pg (27.0-33.0); Mean Corpuscular Volume 83.9 fL (80.0-98.0); Mean Platelet Volume 10.4 fL (9.4-12.4); Platelet Count 374 X10*3/uL (160-400); Red Blood Count 3.67 X10*6/uL (4.60-5.80); Red Cell Distribution Width 15.9 % (11.0-16.0)
[2022-08-18 07:30] LABS: Anion Gap 19 (12-20); Blood Urea Nitrogen 27 mg/dL (9-16); Calcium 8.6 mg/dL (8.4-10.2); Carbon Dioxide 18 mmol/L (22-29); Chloride 105 mmol/L (96-108); Creatinine Clr Calc Pharmacy 46.5; Estimated Glomerular Filt Rate 44; Glucose Random 493 mg/dL (60-115); Magnesium 2.2 mg/dL (1.6-2.6); Potassium 5.1 mmol/L (3.3-5.1); Sodium 137 mmol/L (135-145)
[2022-08-18 07:40] LABS: Glucose, Whole Blood 409 mg/dL (60-115)
[2022-08-18] MEDS: Insulin Lispro 100 UNIT/ML 3 ML VIAL SUBCUT ×4 (08:09→21:42)
[2022-08-18] MEDS: Furosemide 40 MG/4 ML VIAL IVPUSH (08:10)
[2022-08-18] MEDS: lisinopriL 40 MG TABLET PO (08:10)
[2022-08-18] MEDS: Aspirin Enteric Coated 81 MG TABLET.DR PO (08:10)
[2022-08-18] MEDS: Metoclopramide HCl 10 MG TABLET PO ×4 (08:10→21:42)
[2022-08-18] MEDS: Atorvastatin Calcium 40 MG TABLET PO (08:11)
[2022-08-18] MEDS: Ferrous Sulfate 324 MG TABLET.DR PO (08:11)
[2022-08-18] MEDS: Magnesium Oxide 400 MG TABLET PO ×2 (08:11→16:58)
[2022-08-18] MEDS: hydrALAZINE HCl 50 MG TABLET PO ×3 (08:11→21:42)
[2022-08-18] MEDS: amLODIPine Besylate 10 MG TABLET PO (08:11)
[2022-08-18] MEDS: Gabapentin 300 MG CAPSULE PO ×3 (08:12→21:42)
[2022-08-18] MEDS: Metoprolol Succinate ER 100 MG TAB.ER.24H PO (08:13)
[2022-08-18] MEDS: Nicotine 21 MG PATCH.TD24 TRANSDERMA (08:13)
[2022-08-18] MEDS: Nicotine 14 MG PATCH.TD24 TRANSDERMA (08:14)
[2022-08-18] MEDS: Albuterol/Iprat 2.5/0.5MG 3 ML AMPUL.NEB INHALE ×4 (08:48→20:20)
[2022-08-18] MEDS: Escitalopram Oxalate 10 MG TABLET PO (09:15)
--- NOTE | 2022-08-18 10:53 | HO.PM.IMPN ---
Subjective Subjective Date of Service: 08/18/22 Interval History: C/o dyspnea + wheeze no edema no chest pain Review of Systems Review of Systems: Yes all other systems are reviewed and are negative Physical Exam Vital Signs: Vital Signs: Last Vital Signs Temp 98.4 F 08/18/22 07:28 Pulse 94 08/18/22 08:50 Resp 18 08/18/22 08:50 BP 146/78 H 08/18/22 07:28 Pulse Ox 95 08/18/22 07:28 O2 Del Method 08/18/22 07:28 O2 Flow Rate 3 08/18/22 07:28 FiO2 93 08/17/22 22:36 Oxygen Flow Rate 4 08/17/22 13:40 BMI result Body Mass Index 22.4 Gen: NAD HEENT: sclera anicteric, moist mucus membranes Neck: supple Lungs: scattered expiratory wheezing Heart: regular rate and rhythm, no murmurs Abd: soft, non-tender, non-distended Ext: no edema Skin: warm/well-perfused Neuro: alert and oriented x3, no focal findings Psych: appropriate affect Objective Data Active Medications Acetaminophen (Acetaminophen 325 Mg Tablet) 650 mg PO Q6H PRN PRN Reason: Pain, Mild (Pain Scale 1-3) Albuterol Sulfate (Albuterol Sulfate (0.083%) 2.5 Mg/3 Ml Vial.Neb) 2.5 mg INHALE Q2H PRN PRN Reason: Shortness of Breath/Wheezing Albuterol/Ipratropium (Albuterol/Iprat 2.5/0.5mg 3 Ml Ampul.Neb) 3 ml INHALE RQ4H WHILE AWAKE [facility] Last Admin: 08/18/22 08:48 Dose: 3 ml Documented By: DESHAUN Amlodipine Besylate (Amlodipine Besylate 10 Mg Tablet) 10 mg PO DAILY [facility]; Protocol Last Admin: 08/18/22 08:11 Dose: 10 mg Documented By: BENJIE Aspirin (Aspirin Enteric Coated 81 Mg Tablet.) 81 mg PO DAILY [facility] Last Admin: 08/18/22 08:10 Dose: 81 mg Documented By: BENJIE Atorvastatin Calcium (Atorvastatin Calcium 40 Mg Tablet) 40 mg PO DAILY [facility] Last Admin: 08/18/22 08:11 Dose: 40 mg Documented By: BENJIE Dextrose (Dextrose 50 % 25 Gm/50 Ml Syringe) 25 gm IVPUSH Q15M PRN; Protocol PRN Reason: per Hypoglycemia Standing Ord. Enoxaparin Sodium (Enoxaparin Sodium 40 Mg/0.4 Ml Syringe) 40 mg SUBCUT Q24H [facility] Last Admin: 08/17/22 17:20 Dose: 40 mg Documented By: TOMMY Escitalopram Oxalate (Escitalopram Oxalate 10 Mg Tablet) 10 mg PO DAILY [facility] Last Admin: 08/18/22 09:15 Dose: 10 mg Documented By: BENJIE Ferrous Sulfate (Ferrous Sulfate 324 Mg Tablet.Dr) 324 mg PO DAILY [facility] Last Admin: 08/18/22 08:11 Dose: 324 mg Documented By: BENJIE Furosemide (Furosemide 40 Mg/4 Ml Vial) 40 mg IVPUSH DAILY [facility]; Protocol Last Admin: 08/18/22 08:10 Dose: 40 mg Documented By: BENJIE Gabapentin (Gabapentin 300 Mg Capsule) 300 mg PO TID [facility] Last Admin: 08/18/22 08:12 Dose: 300 mg Documented By: BENJIE Glucose (Glucose Gel 15 Gm Gel..Gram.) 15 gm PO Q15M PRN; Protocol PRN Reason: per Hypoglycemia Standing Ord. Hydralazine HCl (Hydralazine Hcl 50 Mg Tablet) 50 mg PO TID [facility]; Protocol Last Admin: 08/18/22 08:11 Dose: 50 mg Documented By: BENJIE Insulin Glargine (Insulin Glargine,Hum.Rec.Anlog 100 Unit/Ml 10 Ml Vial) 15 unit SUBCUT BEDTIME [facility] Last Admin: 08/17/22 20:44 Dose: 15 unit Documented By: BAMBI Insulin Human Lispro (Insulin Lispro 100 Unit/Ml 3 Ml Vial) 0 unit SUBCUT QIDACHS [facility]; Protocol Last Admin: 08/18/22 08:09 Dose: 15 unit Documented By: BENJIE Lisinopril (Lisinopril 40 Mg Tablet) 40 mg PO DAILY [facility]; Protocol Last Admin: 08/18/22 08:10 Dose: 40 mg Documented By: BENJIE Magnesium Oxide (Magnesium Oxide 400 Mg Tablet) 400 mg PO BIDPC [facility] Last Admin: 08/18/22 08:11 Dose: 400 mg Documented By: BENJIE Methylprednisolone Sodium Succinate (Methylprednisolone Sod Succ 40 Mg/Ml Vial) 40 mg IVPUSH Q12H [facility] Last Admin: 08/18/22 02:08 Dose: 40 mg Documented By: RAGINI Metoclopramide HCl (Metoclopramide Hcl 10 Mg Tablet) 10 mg PO QID [facility] Last Admin: 08/18/22 08:10 Dose: 10 mg Documented By: BENJIE Metoprolol Succinate (Metoprolol Succinate Er 100 Mg Tab.Er.24h) 100 mg PO DAILY [facility]; Protocol Last Admin: 08/18/22 08:13 Dose: 100 mg Documented By: BENJIE Nicotine (Nicotine 21 Mg Patch.Td24) 21 mg TRANSDERMA DAILY [facility] Last Admin: 08/18/22 08:13 Dose: 21 mg Documented By: BENJIE Nicotine (Nicotine 14 Mg Patch.Td24) 14 mg TRANSDERMA DAILY [facility] Last Admin: 08/18/22 08:14 Dose: 14 mg Documented By: BENJIE Nicotine Polacrilex (Nicotine Polacrilex 2 Mg Gum) 2 mg BUCCAL Q1H PRN PRN Reason: nicotini cravingz Omeprazole (Omeprazole 40 Mg Capsule.Dr) 40 mg PO DAILY@0630 [facility] Last Admin: 08/18/22 05:53 Dose: 40 mg Documented By: RAGINI Ondansetron HCl (Ondansetron Hcl 4 Mg/2 Ml Vial) 4 mg IVPUSH Q8H PRN PRN Reason: Nausea and Vomiting Sodium Chloride (0.9 % Sodium Chloride Flush 3 Ml Syringe) 3 ml IVFLUSH QSHIFT [facility] Last Admin: 08/18/22 08:20 Dose: 3 ml Documented By: BENJIE Tiotropium Hessel (Tiotropium Hessel 18 Mcg Cap.W.Dev) 2 puff INHALE RDAILY [facility] Last Admin: 08/18/22 08:48 Dose: Not Given Documented By: DESHAUN Non-Admin Reason: Med Not Available Trazodone HCl (Trazodone Hcl 50 Mg Tablet) 50 mg PO BEDTIME [facility] Last Admin: 08/17/22 20:43 Dose: 50 mg Documented [facility] CBC & Chem 7: 08/18/22 06:05 08/18/22 06:05 Labs: Laboratory Results - last 24 hr 08/17/22 08/17/22 08/17/22 13:49 13:49 13:49 MCV 82.8 MCH 26.9 L MCHC 32.6 RDW 15.9 Plt Count 357 MPV 10.1 Immature Gran % (Auto) 0.6 H Neut % (Auto) 85.8 H Lymph % (Auto) 7.5 L [place] % (Auto) 5.1 Eos % (Auto) 0.8 Baso % (Auto) 0.2 Lymph # (Auto) 1.4 [place] # (Auto) 0.9 Eos # (Auto) 0.2 Baso # (Auto) 0.0 Abs Immat Gran (auto) 0.11 H Absolute Neuts (auto) 15.6 H Absolute Nucleated RBC 0.000 Nucleated RBC % (auto) 0.0 PT INR VBG pH VBG pCO2 VBG pO2 VBG HCO3 VBG O2 Saturation VBG Base Excess Anion Gap 18 Estim Creat Clear Calc 48.2 Estimated GFR 46 POC Glucose Random Glucose 308 H D Lactic Acid Calcium 8.4 Magnesium 1.3 L* Total Bilirubin 0.3 AST 15 ALT 17 Alkaline Phosphatase 100 Troponin I High Sens 8.3 B-Natriuretic Peptide 920 H Total Protein 6.5 Albumin 3.6 Procalcitonin Urine Color Urine Appearance Urine pH Ur Specific [place] Urine Protein Urine Glucose (UA) Urine Ketones Urine Blood Urine Nitrite Ur Leukocyte Esterase Urine RBC Urine WBC Ur Squamous Epith Cells Urine Bacteria Hyaline Casts Respiratory Panel [place] Adenovirus (Rapid PCR) B.pert (TEM-PCR) B.parapertussis DNA PCR C. pneumoniae DNA (PCR) Coronavirus OC43 (PCR) Coronavirus HKU1 (PCR) Coronavirus 229E (PCR) COVID-19 (XANDER) COVID-19 Clin Com Coronavirus NL63 (PCR) Human Metapneumovir PCR Influenza A (RT-PCR) Influenza B (RT-PCR) M. pneumoniae (PCR) Parainfluenza 1 (PCR) Parainfluenza 2 (PCR) Parainfluenza 3 (PCR) Parainfluenza 4 (PCR) RSV (PCR) Entero/Rhino (PCR) SARS-CoV-2 RNA (RT-PCR) 08/17/22 08/17/22 08/17/22 13:49 13:49 13:53 MCV MCH MCHC RDW Plt Count MPV Immature Gran % (Auto) Neut % (Auto) Lymph % (Auto) [place] % (Auto) Eos % (Auto) Baso % (Auto) Lymph # (Auto) [place] # (Auto) Eos # (Auto) Baso # (Auto) Abs Immat Gran (auto) Absolute Neuts (auto) Absolute Nucleated RBC Nucleated RBC % (auto) PT 11.4 INR 1.0 VBG pH 7.43 VBG pCO2 27 VBG pO2 82 VBG HCO3 18 L VBG O2 Saturation 95.0 VBG Base Excess -4.4 Anion Gap Estim Creat Clear Calc Estimated GFR POC Glucose Random Glucose Lactic Acid Calcium Magnesium Total Bilirubin AST ALT Alkaline Phosphatase Troponin I High Sens B-Natriuretic Peptide Total Protein Albumin Procalcitonin 0.04 Urine Color Urine Appearance Urine pH Ur Specific [place] Urine Protein Urine Glucose (UA) Urine Ketones Urine Blood Urine Nitrite Ur Leukocyte Esterase Urine RBC Urine WBC Ur Squamous Epith Cells Urine Bacteria Hyaline Casts Respiratory Panel [place] Adenovirus (Rapid PCR) B.pert (TEM-PCR) B.parapertussis DNA PCR C. pneumoniae DNA (PCR) Coronavirus OC43 (PCR) Coronavirus HKU1 (PCR) Coronavirus 229E (PCR) COVID-19 (XANDER) COVID-19 Clin Com Coronavirus NL63 (PCR) Human Metapneumovir PCR Influenza A (RT-PCR) Influenza B (RT-PCR) M. pneumoniae (PCR) Parainfluenza 1 (PCR) Parainfluenza 2 (PCR) Parainfluenza 3 (PCR) Parainfluenza 4 (PCR) RSV (PCR) Entero/Rhino (PCR) SARS-CoV-2 RNA (RT-PCR) 08/17/22 08/17/22 08/17/22 14:18 14:18 15:37 MCV MCH MCHC RDW Plt Count MPV Immature Gran % (Auto) Neut % (Auto) Lymph % (Auto) [place] % (Auto) Eos % (Auto) Baso % (Auto) Lymph # (Auto) [place] # (Auto) Eos # (Auto) Baso # (Auto) Abs Immat Gran (auto) Absolute Neuts (auto) Absolute Nucleated RBC Nucleated RBC % (auto) PT INR VBG pH VBG pCO2 VBG pO2 VBG HCO3 VBG O2 Saturation VBG Base Excess Anion Gap Estim Creat Clear Calc Estimated GFR POC Glucose Random Glucose Lactic Acid 1.3 Calcium Magnesium Total Bilirubin AST ALT Alkaline Phosphatase Troponin I High Sens B-Natriuretic Peptide Total Protein Albumin Procalcitonin Urine Color Yellow Urine Appearance Clear Urine pH 5.5 Ur Specific [place] 1.010 Urine Protein 100 (2+) H Urine Glucose (UA) 250 H Urine Ketones Negative Urine Blood Negative Urine Nitrite Negative Ur Leukocyte Esterase Negative Urine RBC 0-2 Urine WBC 0-5 Ur Squamous Epith Cells 0-2 Urine Bacteria None Seen Hyaline Casts 0-2 Respiratory Panel [place] Adenovirus (Rapid PCR) B.pert (TEM-PCR) B.parapertussis DNA PCR C. pneumoniae DNA (PCR) Coronavirus OC43 (PCR) Coronavirus HKU1 (PCR) Coronavirus 229E (PCR) COVID-19 (XANDER) Negative COVID-19 Clin Com See Note Coronavirus NL63 (PCR) Human Metapneumovir PCR Influenza A (RT-PCR) Influenza B (RT-PCR) M. pneumoniae (PCR) Parainfluenza 1 (PCR) Parainfluenza 2 (PCR) Parainfluenza 3 (PCR) Parainfluenza 4 (PCR) RSV (PCR) Entero/Rhino (PCR) SARS-CoV-2 RNA (RT-PCR) 08/17/22 08/17/22 08/18/22 17:19 21:03 05:59 MCV MCH MCHC RDW Plt Count MPV Immature Gran % (Auto) Neut % (Auto) Lymph % (Auto) [place] % (Auto) Eos % (Auto) Baso % (Auto) Lymph # (Auto) [place] # (Auto) Eos # (Auto) Baso # (Auto) Abs Immat Gran (auto) Absolute Neuts (auto) Absolute Nucleated RBC Nucleated RBC % (auto) PT INR VBG pH VBG pCO2 VBG pO2 VBG HCO3 VBG O2 Saturation VBG Base Excess Anion Gap Estim Creat Clear Calc Estimated GFR POC Glucose 275 H 344 H Random Glucose Lactic Acid Calcium Magnesium Total Bilirubin AST ALT Alkaline Phosphatase Troponin I High Sens B-Natriuretic Peptide Total Protein Albumin Procalcitonin Urine Color Urine Appearance Urine pH Ur Specific [place] Urine Protein Urine Glucose (UA) Urine Ketones Urine Blood Urine Nitrite Ur Leukocyte Esterase Urine RBC Urine WBC Ur Squamous Epith Cells Urine Bacteria Hyaline Casts Respiratory Panel [place] Cancelled Adenovirus (Rapid PCR) Cancelled B.pert (TEM-PCR) Cancelled B.parapertussis DNA PCR Cancelled C. pneumoniae DNA (PCR) Cancelled Coronavirus OC43 (PCR) Cancelled Coronavirus HKU1 (PCR) Cancelled Coronavirus 229E (PCR) Cancelled COVID-19 (XANDER) COVID-19 Clin Com Coronavirus NL63 (PCR) Cancelled Human Metapneumovir PCR Cancelled Influenza A (RT-PCR) Cancelled Influenza B (RT-PCR) Cancelled M. pneumoniae (PCR) Cancelled Parainfluenza 1 (PCR) Cancelled Parainfluenza 2 (PCR) Cancelled Parainfluenza 3 (PCR) Cancelled Parainfluenza 4 (PCR) Cancelled RSV (PCR) Cancelled Entero/Rhino (PCR) Cancelled SARS-CoV-2 RNA (RT-PCR) Cancelled 08/18/22 08/18/22 08/18/22 06:05 06:05 06:13 MCV 83.9 MCH 26.7 L MCHC 31.8 RDW 15.9 Plt Count 374 MPV 10.4 Immature Gran % (Auto) Neut % (Auto) Lymph % (Auto) [place] % (Auto) Eos % (Auto) Baso % (Auto) Lymph # (Auto) [place] # (Auto) Eos # (Auto) Baso # (Auto) Abs Immat Gran (auto) Absolute Neuts (auto) Absolute Nucleated RBC 0.000 Nucleated RBC % (auto) 0.0 PT INR VBG pH 7.44 H VBG pCO2 26 VBG pO2 150 VBG HCO3 18 L VBG O2 Saturation 99.0 VBG Base Excess -4.5 Anion Gap 19 Estim Creat Clear Calc 46.5 Estimated GFR 44 POC Glucose Random Glucose 493 H* Lactic Acid Calcium 8.6 Magnesium 2.2 Total Bilirubin AST ALT Alkaline Phosphatase Troponin I High Sens B-Natriuretic Peptide Total Protein Albumin Procalcitonin Urine Color Urine Appearance Urine pH Ur Specific [place] Urine Protein Urine Glucose (UA) Urine Ketones Urine Blood Urine Nitrite Ur Leukocyte Esterase Urine RBC Urine WBC Ur Squamous Epith Cells Urine Bacteria Hyaline Casts Respiratory Panel [place] Adenovirus (Rapid PCR) B.pert (TEM-PCR) B.parapertussis DNA PCR C. pneumoniae DNA (PCR) Coronavirus OC43 (PCR) Coronavirus HKU1 (PCR) Coronavirus 229E (PCR) COVID-19 (XANDER) COVID-19 Clin Com Coronavirus NL63 (PCR) Human Metapneumovir PCR Influenza A (RT-PCR) Influenza B (RT-PCR) M. pneumoniae (PCR) Parainfluenza 1 (PCR) Parainfluenza 2 (PCR) Parainfluenza 3 (PCR) Parainfluenza 4 (PCR) RSV (PCR) Entero/Rhino (PCR) SARS-CoV-2 RNA (RT-PCR) 08/18/22 07:36 MCV MCH MCHC RDW Plt Count MPV Immature Gran % (Auto) Neut % (Auto) Lymph % (Auto) [place] % (Auto) Eos % (Auto) Baso % (Auto) Lymph # (Auto) [place] # (Auto) Eos # (Auto) Baso # (Auto) Abs Immat Gran (auto) Absolute Neuts (auto) Absolute Nucleated RBC Nucleated RBC % (auto) PT INR VBG pH VBG pCO2 VBG pO2 VBG HCO3 VBG O2 Saturation VBG Base Excess Anion Gap Estim Creat Clear Calc Estimated GFR POC Glucose 409 H* Random Glucose Lactic Acid Calcium Magnesium Total Bilirubin AST ALT Alkaline Phosphatase Troponin I High Sens B-Natriuretic Peptide Total Protein Albumin Procalcitonin Urine Color Urine Appearance Urine pH Ur Specific [place] Urine Protein Urine Glucose (UA) Urine Ketones Urine Blood Urine Nitrite Ur Leukocyte Esterase Urine RBC Urine WBC Ur Squamous Epith Cells Urine Bacteria Hyaline Casts Respiratory Panel [place] Adenovirus (Rapid PCR) B.pert (TEM-PCR) B.parapertussis DNA PCR C. pneumoniae DNA (PCR) Coronavirus OC43 (PCR) Coronavirus HKU1 (PCR) Coronavirus 229E (PCR) COVID-19 (XANDER) COVID-19 Clin Com Coronavirus NL63 (PCR) Human Metapneumovir PCR Influenza A (RT-PCR) Influenza B (RT-PCR) M. pneumoniae (PCR) Parainfluenza 1 (PCR) Parainfluenza 2 (PCR) Parainfluenza 3 (PCR) Parainfluenza 4 (PCR) RSV (PCR) Entero/Rhino (PCR) SARS-CoV-2 RNA (RT-PCR) Assessment and Plan (1) Uncontrolled hypertension: Status: Inactive (2) Acute on chronic diastolic (congestive) heart failure: Status: Inactive Plan hospital d#2 47yo M with COPD on 2L O2 at home, YARELIS, HFpEF, DM2, and CKD3 who was admitted here 08/01-08/07/22 for multilobar PNA with COPD and CHF exacerbations and again admitted 08/11-08/13/22 for CHF exacerbation.? Both times he briefly required BiPAP in the ED but was weaned off.? He does not yet have a CPAP machine.? He presented on 08/17/22 after 1 day of worsening dyspnea and was hypoxic from COPD and CHF # COPD exacerbation - steroids d#2, standing/prn nebs, RPP pending, continue tiotropium.? suspect infiltrate on CXR is resolving PNA but will check PCT # acute/chronic HFpEF - continue to diurese with IV furosemide, monitor electrolytes + I/O - antihypertensives as below # acute hypoxic respiratory failure - wean O2 as tolerated, treat conditions above # YARELIS - CPAP at night, needs home machine # hypoMg - repleted, continue PO maintenance # KELVIN/CKD3 - suspect cardiorenal; monitor SCr with diuresis # HTN - continue lisinopril, hydralazine, metoprolol succinate, and amlodipine # HLD - continue atorvastatin # DM2 - has Omnipod insulin pump at home but didn't bring it with him; give basal/bolus insulin # neuropathy - continue gabapentin # gastroparesis - metoclopramide # mood disorder - continue escitalopram + trazodone # tobacco abuse - counseled cessation.? give NRT # VTE prophylaxis: LMWH # dispo: PT consult In my clinical judgment, the patient requires continued hospitalization for the following reasons: IV diuresis, hypoxia Quality Stroke Does the patient have a stroke diagnosis?: No VTE Prior VTE?: No VTE Risk Level:: Medical - moderate - high VTE Device Contraindication: N/A - Device Ordered VTE Drug Contraindication: N/A - Med Ordered
[2022-08-18 11:37] LABS: Glucose, Whole Blood 443 mg/dL (60-115)
--- NOTE | 2022-08-18 14:58 | MHC.CM.PN ---
Addendum entered by Ana Maria Mack 08/18/22 15:14: Preferences for VNA and STR obtained and referrals have been sent. Original Note: Male 47 DX COPD CHF exacerbation. Patient discharged from [facility] 08/13/22. He has been hospitalized >3 times with the same dx. He lives with family. He states that he is independent with all functional mobility. He was sent home with 3L o2 via [place] last week. Divya is his home O2 provider. He is waiting for a CPAP arranged prior admit. DP home w services vs STR via BLS.
[2022-08-18 16:18] LABS: Glucose, Whole Blood 453 mg/dL (60-115)
[2022-08-18 16:37] LABS: Adenovirus PCR Not Detected (Not Detect.); Bordetella parapertussis PCR Not Detected (Not Detect.); Bordetella pertussis PCR Not Detected (Not Detect.); Chlamydia pneumoniae PCR Not Detected (Not Detect.); Coronavirus 229E PCR Not Detected (Not Detect.); Coronavirus HKU1 PCR Not Detected (Not Detect.); Coronavirus NL63 PCR Not Detected (Not Detect.); Coronavirus OC43 PCR Not Detected (Not Detect.); Human metapneumovirus PCR Not Detected (Not Detect.); Influenza A PCR Not Detected (Not Detect.); Influenza B PCR Not Detected (Not Detect.); Mycoplasma pneumoniae PCR Not Detected (Not Detect.); Parainfluenza 1 PCR Not Detected (Not Detect.); Parainfluenza 2 PCR Not Detected (Not Detect.); Parainfluenza 3 PCR Not Detected (Not Detect.); Parainfluenza 4 PCR Not Detected (Not Detect.); RSV PCR Not Detected (Not Detect.); Rhino/Enterovirus PCR Not Detected (Not Detect.); SARS-CoV-2 PCR Not Detected (Not Detect.)
[2022-08-18] MEDS: Enoxaparin Sodium 40 MG/0.4 ML SYRINGE SUBCUT (17:43)
[2022-08-18 20:12] LABS: Glucose, Whole Blood 345 mg/dL (60-115)
[2022-08-18] MEDS: traZODone HCL 50 MG TABLET PO (21:42)
[2022-08-18] MEDS: Insulin Glargine,Hum.rec.anlog 100 UNIT/ML 10 ML VIAL 20 UNIT SUBCUT (21:43)
[2022-08-19] VITALS (11 sets, daily range): BP systolic 117–150; BP diastolic 63–78; PULSE 79–91; RESP 17–20; TEMP 36.2–37.1; O2SAT 92–97
[2022-08-19] MEDS: methylPREDNISolone Sod Succ 40 MG/ML VIAL IVPUSH (01:59)
[2022-08-19] MEDS: 0.9 % Sodium Chloride Flush 3 ML SYRINGE IVFLUSH ×4 (02:02→20:44)
[2022-08-19] MEDS: Omeprazole 40 MG CAPSULE.DR PO (06:33)
[2022-08-19 07:11] LABS: B Type Natriuretic Peptide 484 pg/mL (<100)
[2022-08-19 07:23] LABS: Anion Gap 16 (12-20); Blood Urea Nitrogen 38 mg/dL (9-16); Calcium 8.3 mg/dL (8.4-10.2); Carbon Dioxide 20 mmol/L (22-29); Chloride 105 mmol/L (96-108); Creatinine Clr Calc Pharmacy 49.4; Estimated Glomerular Filt Rate 47; Glucose Random 320 mg/dL (60-115); Magnesium 2.1 mg/dL (1.6-2.6); Potassium 5.4 mmol/L (3.3-5.1); Sodium 136 mmol/L (135-145)
[2022-08-19] MEDS: Albuterol/Iprat 2.5/0.5MG 3 ML AMPUL.NEB INHALE ×4 (07:28→20:22)
[2022-08-19 08:10] LABS: Glucose, Whole Blood 331 mg/dL (60-115)
[2022-08-19] MEDS: Insulin Lispro 100 UNIT/ML 3 ML VIAL SUBCUT ×3 (08:30→20:44)
[2022-08-19] MEDS: Furosemide 40 MG/4 ML VIAL IVPUSH (08:30)
[2022-08-19] MEDS: Gabapentin 300 MG CAPSULE PO ×3 (08:31→20:44)
[2022-08-19] MEDS: Magnesium Oxide 400 MG TABLET PO ×2 (08:31→17:49)
[2022-08-19] MEDS: Metoclopramide HCl 10 MG TABLET PO ×4 (08:31→20:44)
[2022-08-19] MEDS: Escitalopram Oxalate 10 MG TABLET PO (08:31)
[2022-08-19] MEDS: lisinopriL 40 MG TABLET PO (08:31)
[2022-08-19] MEDS: Ferrous Sulfate 324 MG TABLET.DR PO (08:31)
[2022-08-19] MEDS: Metoprolol Succinate ER 100 MG TAB.ER.24H PO (08:31)
[2022-08-19] MEDS: amLODIPine Besylate 10 MG TABLET PO (08:31)
[2022-08-19] MEDS: hydrALAZINE HCl 50 MG TABLET PO ×3 (08:31→20:44)
[2022-08-19] MEDS: Aspirin Enteric Coated 81 MG TABLET.DR PO (08:31)
[2022-08-19] MEDS: Atorvastatin Calcium 40 MG TABLET PO (08:31)
--- NOTE | 2022-08-19 11:07 | HO.PM.IMPN ---
Subjective Subjective Date of Service: 08/19/22 Interval History: breathing improved was on CPAP last night doesn't yet have home machine despite doing sleep study + titration study Review of Systems Review of Systems: Yes all other systems are reviewed and are negative Physical Exam Vital Signs: Vital Signs: Last Vital Signs Temp 97.2 F 08/19/22 07:27 Pulse 86 08/19/22 07:30 Resp 18 08/19/22 07:30 BP 150/78 H 08/19/22 07:27 Pulse Ox 95 08/19/22 07:27 O2 Del Method 08/19/22 07:27 O2 Flow Rate 3 08/19/22 07:27 FiO2 93 08/17/22 22:36 Oxygen Flow Rate 4 08/17/22 13:40 BMI result Body Mass Index 22.4 Gen: NAD HEENT: sclera anicteric, moist mucus membranes Neck: supple, no JVD Lungs: diminished breath sounds throughout Heart: regular rate and rhythm, no murmurs Abd: soft, non-tender, non-distended Ext: no edema Skin: warm/well-perfused Neuro: alert and oriented x3, no focal findings Psych: appropriate affect Objective Data Active Medications Acetaminophen (Acetaminophen 325 Mg Tablet) 650 mg PO Q6H PRN PRN Reason: Pain, Mild (Pain Scale 1-3) Albuterol Sulfate (Albuterol Sulfate (0.083%) 2.5 Mg/3 Ml Vial.Neb) 2.5 mg INHALE Q2H PRN PRN Reason: Shortness of Breath/Wheezing Albuterol/Ipratropium (Albuterol/Iprat 2.5/0.5mg 3 Ml Ampul.Neb) 3 ml INHALE RQ4H WHILE AWAKE COUNTS INCLUDE 234 BEDS AT THE [facility] Last Admin: 08/19/22 07:28 Dose: 3 ml Documented By: ANN Amlodipine Besylate (Amlodipine Besylate 10 Mg Tablet) 10 mg PO DAILY COUNTS INCLUDE 234 BEDS AT THE [facility]; Protocol Last Admin: 08/19/22 08:31 Dose: 10 mg Documented By: SYDNIE Aspirin (Aspirin Enteric Coated 81 Mg Tablet.) 81 mg PO DAILY COUNTS INCLUDE 234 BEDS AT THE [facility] Last Admin: 08/19/22 08:31 Dose: 81 mg Documented By: SYDNIE Atorvastatin Calcium (Atorvastatin Calcium 40 Mg Tablet) 40 mg PO DAILY COUNTS INCLUDE 234 BEDS AT THE [facility] Last Admin: 08/19/22 08:31 Dose: 40 mg Documented By: SYDNIE Dextrose (Dextrose 50 % 25 Gm/50 Ml Syringe) 25 gm IVPUSH Q15M PRN; Protocol PRN Reason: per Hypoglycemia Standing Ord. Enoxaparin Sodium (Enoxaparin Sodium 40 Mg/0.4 Ml Syringe) 40 mg SUBCUT Q24H COUNTS INCLUDE 234 BEDS AT THE [facility] Last Admin: 08/18/22 17:43 Dose: 40 mg Documented By: BENJIE Escitalopram Oxalate (Escitalopram Oxalate 10 Mg Tablet) 10 mg PO DAILY COUNTS INCLUDE 234 BEDS AT THE [facility] Last Admin: 08/19/22 08:31 Dose: 10 mg Documented By: SYDNIE Ferrous Sulfate (Ferrous Sulfate 324 Mg Tablet.Dr) 324 mg PO DAILY COUNTS INCLUDE 234 BEDS AT THE [facility] Last Admin: 08/19/22 08:31 Dose: 324 mg Documented By: SYDNIE Furosemide (Furosemide 40 Mg/4 Ml Vial) 40 mg IVPUSH DAILY COUNTS INCLUDE 234 BEDS AT THE [facility]; Protocol Last Admin: 08/19/22 08:30 Dose: 40 mg Documented By: SYDNIE Gabapentin (Gabapentin 300 Mg Capsule) 300 mg PO TID COUNTS INCLUDE 234 BEDS AT THE [facility] Last Admin: 08/19/22 08:31 Dose: 300 mg Documented By: SYDNIE Glucose (Glucose Gel 15 Gm Gel..Gram.) 15 gm PO Q15M PRN; Protocol PRN Reason: per Hypoglycemia Standing Ord. Hydralazine HCl (Hydralazine Hcl 50 Mg Tablet) 50 mg PO TID COUNTS INCLUDE 234 BEDS AT THE [facility]; Protocol Last Admin: 08/19/22 08:31 Dose: 50 mg Documented By: SYDNIE Insulin Glargine (Insulin Glargine,Hum.Rec.Anlog 100 Unit/Ml 10 Ml Vial) 25 unit SUBCUT BEDTIME COUNTS INCLUDE 234 BEDS AT THE [facility] Insulin Human Lispro (Insulin Lispro 100 Unit/Ml 3 Ml Vial) 0 unit SUBCUT QIDACHS COUNTS INCLUDE 234 BEDS AT THE [facility]; Protocol Last Admin: 08/19/22 08:30 Dose: 18 unit Documented By: SYDNIE Lisinopril (Lisinopril 40 Mg Tablet) 40 mg PO DAILY COUNTS INCLUDE 234 BEDS AT THE [facility]; Protocol Last Admin: 08/19/22 08:31 Dose: 40 mg Documented By: SYDNIE Magnesium Oxide (Magnesium Oxide 400 Mg Tablet) 400 mg PO BIDPC COUNTS INCLUDE 234 BEDS AT THE [facility] Last Admin: 08/19/22 08:31 Dose: 400 mg Documented By: SYDNIE Methylprednisolone Sodium Succinate (Methylprednisolone Sod Succ 40 Mg/Ml Vial) 40 mg IVPUSH Q12H COUNTS INCLUDE 234 BEDS AT THE [facility] Last Admin: 08/19/22 01:59 Dose: 40 mg Documented By: JUAN Metoclopramide HCl (Metoclopramide Hcl 10 Mg Tablet) 10 mg PO QID COUNTS INCLUDE 234 BEDS AT THE [facility] Last Admin: 08/19/22 08:31 Dose: 10 mg Documented By: SYDNIE Metoprolol Succinate (Metoprolol Succinate Er 100 Mg Tab.Er.24h) 100 mg PO DAILY COUNTS INCLUDE 234 BEDS AT THE [facility]; Protocol Last Admin: 08/19/22 08:31 Dose: 100 mg Documented By: SYDNIE Nicotine (Nicotine 21 Mg Patch.Td24) 21 mg TRANSDERMA DAILY COUNTS INCLUDE 234 BEDS AT THE [facility] Last Admin: 08/18/22 08:13 Dose: 21 mg Documented By: BENJIE Nicotine (Nicotine 14 Mg Patch.Td24) 14 mg TRANSDERMA DAILY COUNTS INCLUDE 234 BEDS AT THE [facility] Last Admin: 08/18/22 08:14 Dose: 14 mg Documented By: BENJIE Nicotine Polacrilex (Nicotine Polacrilex 2 Mg Gum) 2 mg BUCCAL Q1H PRN PRN Reason: nicotini cravingz Omeprazole (Omeprazole 40 Mg Capsule.Dr) 40 mg PO DAILY@0630 COUNTS INCLUDE 234 BEDS AT THE [facility] Last Admin: 08/19/22 06:33 Dose: 40 mg Documented By: JUAN Ondansetron HCl (Ondansetron Hcl 4 Mg/2 Ml Vial) 4 mg IVPUSH Q8H PRN PRN Reason: Nausea and Vomiting Sodium Chloride (0.9 % Sodium Chloride Flush 3 Ml Syringe) 3 ml IVFLUSH QSHIFT COUNTS INCLUDE 234 BEDS AT THE [facility] Last Admin: 08/19/22 08:32 Dose: 3 ml Documented By: SYDNIE Tiotropium [place] (Tiotropium [place] 18 Mcg Cap.W.Dev) 2 puff INHALE RDAILY COUNTS INCLUDE 234 BEDS AT THE [facility] Last Admin: 08/19/22 07:29 Dose: 2 puff Documented By: ANN Trazodone HCl (Trazodone Hcl 50 Mg Tablet) 50 mg PO BEDTIME COUNTS INCLUDE 234 BEDS AT THE [facility] Last Admin: 08/18/22 21:42 Dose: 50 mg Documented By: JUAN Labs CBC & Chem 7: 08/18/22 06:05 08/19/22 05:49 Labs: Laboratory Results - last 24 hr 08/18/22 08/18/22 08/18/22 11:20 13:59 16:15 Anion Gap Estim Creat Clear Calc Estimated GFR POC Glucose 443 H* 453 H* Random Glucose Calcium Magnesium B-Natriuretic Peptide Respiratory Panel Mkceon See Note Adenovirus (Rapid PCR) Not Detected B.pert (TEM-PCR) Not Detected B.parapertussis DNA PCR Not Detected C. pneumoniae DNA (PCR) Not Detected Coronavirus OC43 (PCR) Not Detected Coronavirus HKU1 (PCR) Not Detected Coronavirus 229E (PCR) Not Detected Coronavirus NL63 (PCR) Not Detected Human Metapneumovir PCR Not Detected Influenza A (RT-PCR) Not Detected Influenza B (RT-PCR) Not Detected M. pneumoniae (PCR) Not Detected Parainfluenza 1 (PCR) Not Detected Parainfluenza 2 (PCR) Not Detected Parainfluenza 3 (PCR) Not Detected Parainfluenza 4 (PCR) Not Detected RSV (PCR) Not Detected Entero/Rhino (PCR) Not Detected SARS-CoV-2 RNA (RT-PCR) Not Detected 08/18/22 08/19/22 08/19/22 19:34 05:49 05:49 Anion Gap 16 Estim Creat Clear Calc 49.4 Estimated GFR 47 POC Glucose 345 H Random Glucose 320 H D Calcium 8.3 L Magnesium 2.1 B-Natriuretic Peptide 484 H Respiratory Panel Mckeon Adenovirus (Rapid PCR) B.pert (TEM-PCR) B.parapertussis DNA PCR C. pneumoniae DNA (PCR) Coronavirus OC43 (PCR) Coronavirus HKU1 (PCR) Coronavirus 229E (PCR) Coronavirus NL63 (PCR) Human Metapneumovir PCR Influenza A (RT-PCR) Influenza B (RT-PCR) M. pneumoniae (PCR) Parainfluenza 1 (PCR) Parainfluenza 2 (PCR) Parainfluenza 3 (PCR) Parainfluenza 4 (PCR) RSV (PCR) Entero/Rhino (PCR) SARS-CoV-2 RNA (RT-PCR) 08/19/22 07:57 Anion Gap Estim Creat Clear Calc Estimated GFR POC Glucose 331 H Random Glucose Calcium Magnesium B-Natriuretic Peptide Respiratory Panel Mckeon Adenovirus (Rapid PCR) B.pert (TEM-PCR) B.parapertussis DNA PCR C. pneumoniae DNA (PCR) Coronavirus OC43 (PCR) Coronavirus HKU1 (PCR) Coronavirus 229E (PCR) Coronavirus NL63 (PCR) Human Metapneumovir PCR Influenza A (RT-PCR) Influenza B (RT-PCR) M. pneumoniae (PCR) Parainfluenza 1 (PCR) Parainfluenza 2 (PCR) Parainfluenza 3 (PCR) Parainfluenza 4 (PCR) RSV (PCR) Entero/Rhino (PCR) SARS-CoV-2 RNA (RT-PCR) Microbiology Microbiology Results: Microbiology 08/17/22 14:30 Blood Culture - Preliminary Blood - Venous No growth after 24 hours. 08/17/22 14:18 Blood Culture - Preliminary Blood - Venous No growth after 24 hours. Assessment and Plan (1) Uncontrolled hypertension: Status: Inactive (2) Acute on chronic diastolic (congestive) heart failure: Status: Inactive Plan hospital d#3 47yo M with COPD on 2L O2 at home, YARELIS not yet on CPAP, HFpEF, DM2, and CKD3 who was admitted here 08/01-08/07/22 for multilobar PNA with COPD and CHF exacerbations and again admitted 08/11-08/13/22 for CHF exacerbation.? Both times he briefly required BiPAP in the ED but was weaned off.? H He presented on 08/17/22 after 1 day of worsening dyspnea and was admitted for hypoxia from COPD and CHF # COPD exacerbation - steroids d#3 [change IV->PO], standing/prn nebs, RPP negative, continue tiotropium controller. suspect infiltrate on CXR is resolving PNA [PCT is low] # acute/chronic HFpEF - apperas euvolemic, change to PO furosemide - antihypertensives as below # [id number] hypoxic respiratory failure - wean O2 as tolerated, treat conditions above # YARELIS - CPAP at night, needs home machine- consult RT # hypoMg - repleted, continue PO maintenance # hyperK - mild, give 1 dose SZC, recheck BMP in AM # KELVIN/CKD3 - suspect cardiorenal; monitor SCr with diuresis # HTN - continue lisinopril, hydralazine, metoprolol succinate, and amlodipine # HLD - continue atorvastatin # DM2 - has Omnipod insulin pump at home but didn't bring it with him; increase doses of basal/bolus insulin # neuropathy - continue gabapentin # gastroparesis - metoclopramide # mood disorder - continue escitalopram + trazodone # tobacco abuse - counseled cessation.?NRT # VTE prophylaxis: LMWH # dispo: PT consulted, plan home with VNA likely tomorrow In my clinical judgment, the patient requires continued hospitalization for the following reasons: respiratory failure Quality Stroke Does the patient have a stroke diagnosis?: No VTE Prior VTE?: No VTE Risk Level:: Medical - moderate - high VTE Device Contraindication: N/A - Device Ordered VTE Drug Contraindication: N/A - Med Ordered
[2022-08-19] MEDS: Nicotine 21 MG PATCH.TD24 TRANSDERMA (11:18)
[2022-08-19 11:56] LABS: Glucose, Whole Blood 302 mg/dL (60-115)
[2022-08-19] MEDS: Sodium Zirconium Cyclosilicate 10 GM POWD.PACK PO (13:11)
--- NOTE | 2022-08-19 13:29 | MHC.CM.PN ---
per rounds pt will be ready for dc in 1 to days plan remains return to [facility]
[2022-08-19 16:51] LABS: Glucose, Whole Blood 87 mg/dL (60-115)
[2022-08-19] MEDS: Enoxaparin Sodium 40 MG/0.4 ML SYRINGE SUBCUT (18:19)
[2022-08-19 20:07] LABS: Glucose, Whole Blood 249 mg/dL (60-115)
[2022-08-19] MEDS: traZODone HCL 50 MG TABLET PO (20:44)
[2022-08-19] MEDS: Insulin Glargine,Hum.rec.anlog 100 UNIT/ML 10 ML VIAL 25 UNIT SUBCUT (20:45)
[2022-08-20 04:00] VITALS: BP 147/80; PULSE 74; RESP 20; TEMP 37.1; O2SAT 94
[2022-08-20] MEDS: Omeprazole 40 MG CAPSULE.DR PO (04:37)
[2022-08-20 07:17] LABS: Hematocrit 30.2 % (42.0-52.0); Hemoglobin 9.6 g/dl (14.0-18.0); Mean Corpuscular HGB Conc 31.8 g/dl (31.0-36.0); Mean Corpuscular Hemoglobin 26.8 pg (27.0-33.0); Mean Corpuscular Volume 84.4 fL (80.0-98.0); Mean Platelet Volume 10.5 fL (9.4-12.4); Platelet Count 427 X10*3/uL (160-400); Red Blood Count 3.58 X10*6/uL (4.60-5.80); Red Cell Distribution Width 16.3 % (11.0-16.0); White Blood Count 17.3 X10*3/uL (4.8-10.8)
[2022-08-20 07:19] LABS: Glucose, Whole Blood 128 mg/dL (60-115)
[2022-08-20 07:52] LABS: B Type Natriuretic Peptide 412 pg/mL (<100)
[2022-08-20 07:59] VITALS: BP 143/78; PULSE 75; RESP 20; TEMP 36.6; O2SAT 98
[2022-08-20] MEDS: Albuterol/Iprat 2.5/0.5MG 3 ML AMPUL.NEB INHALE ×2 (08:17→11:21)
[2022-08-20 08:19] VITALS: PULSE 82; RESP 18; O2SAT 96
[2022-08-20 08:24] LABS: Anion Gap 17 (12-20); Blood Urea Nitrogen 36 mg/dL (9-16); Calcium 8.6 mg/dL (8.4-10.2); Carbon Dioxide 21 mmol/L (22-29); Chloride 107 mmol/L (96-108); Creatinine Clr Calc Pharmacy 50.1; Estimated Glomerular Filt Rate 48; Glucose Random 128 mg/dL (60-115); Magnesium 1.9 mg/dL (1.6-2.6); Sodium 141 mmol/L (135-145)
[2022-08-20 08:47] LABS: Potassium 4.3 mmol/L (3.3-5.1)
[2022-08-20] MEDS: Insulin Lispro 100 UNIT/ML 3 ML VIAL SUBCUT ×2 (09:19→12:08)
[2022-08-20] MEDS: Nicotine 21 MG PATCH.TD24 TRANSDERMA (09:19)
[2022-08-20] MEDS: Furosemide 40 MG TABLET PO (09:20)
[2022-08-20] MEDS: predniSONE 20 MG TABLET 40 MG PO (09:20)
[2022-08-20] MEDS: Metoclopramide HCl 10 MG TABLET PO ×2 (09:20→12:08)
[2022-08-20] MEDS: Atorvastatin Calcium 40 MG TABLET PO (09:20)
[2022-08-20] MEDS: 0.9 % Sodium Chloride Flush 3 ML SYRINGE IVFLUSH (09:20)
[2022-08-20] MEDS: amLODIPine Besylate 10 MG TABLET PO (09:20)
[2022-08-20] MEDS: lisinopriL 40 MG TABLET PO (09:20)
[2022-08-20] MEDS: Aspirin Enteric Coated 81 MG TABLET.DR PO (09:20)
[2022-08-20] MEDS: Ferrous Sulfate 324 MG TABLET.DR PO (09:20)
[2022-08-20] MEDS: hydrALAZINE HCl 50 MG TABLET PO (09:21)
[2022-08-20] MEDS: Metoprolol Succinate ER 100 MG TAB.ER.24H PO (09:21)
[2022-08-20] MEDS: Gabapentin 300 MG CAPSULE PO (09:21)
[2022-08-20] MEDS: Escitalopram Oxalate 10 MG TABLET PO (09:21)
[2022-08-20] MEDS: Magnesium Oxide 400 MG TABLET PO (09:21)
--- NOTE | 2022-08-20 10:51 | P.F2F_ITS ---
Service Date Service Date: 08/20/22 Encounter Date of encounter: 08/20/22 Reasons for Services Signs and symptoms assessed: CHF/COPD/YARELIS Reason for retirement: medication management, teach disease management and other Reason for physical therapy: home safety and mobility, therapeutic exercises, gait/transfer training, assess need for DME, ADL training and energy conservation MD Overseeing Care: Zari Henry Homebound: Leaving the home is medically contraindicated at this time without the asist of a device and/or another person due th the listed conditions above and below. Reason homebound: shortness of breath with minimal effort and weakness related to hospital stay Homebound supporting statement: home PT and cardiopulmonary rehabilitation Certification: Based on the above findings, I certify that this patient is confined to the home and needs intermittent retirement care, physical therapy and/or speech therapy, or continues to need occupational therapy. The patient is under my care, and I have initiated the establishment of the plan of care. The patient will be followed by a physician who will periodically review the plan of care.
--- NOTE | 2022-08-20 11:09 | P.DS_ITS ---
DS: Providers Provider Date of Service: 08/20/22 Date of admission: 08/17/22 16:23 Date of discharge: 08/20/22 Primary care physician: Zari Henry MD DS: Diagnosis Discharge Diagnosis (1) Uncontrolled hypertension: Status: Inactive (2) Acute on chronic diastolic (congestive) heart failure: Status: Inactive (3) Acute on chronic heart failure with preserved ejection fraction (HFpEF): Status: Acute (4) YARELIS (obstructive sleep apnea): Status: Acute (5) COPD exacerbation: Status: Acute (6) Acute and chronic respiratory failure with hypoxia: Status: Acute (7) Acute on chronic kidney failure: Status: Acute (8) Hypomagnesemia: Status: Acute DS: Summary Hospital Course Hospital Course: From my admission H+P, 08/17/22: 47yo M with COPD on 2L O2 at home, YARELIS, HFpEF, DM2, and CKD3 who was admitted here 08/01-08/07/22 for multilobar PNA with COPD and CHF exacerbations and again admitted 08/11-08/13/22 for CHF exacerbation.? Both times he briefly required BiPAP in the ED but was weaned off.? He does not yet have a CPAP machine.? He presents today with worsening dyspnea for the past day. ? He smokes 6 cigarettes a day.? EMS found his room air SaO2 to be 88%.? In the ED, he required 4L O2 to maintain SaO2 of 91%. ? His WBC count is 18.2 but this appears to be chronic.? BNP 920, up from 304 on 08/12/22.? SCr 1.62, compared to 1.46 on 08/13/22 and 1.09 on 08/01/22.? He was given IV furosemide and IV methylprednisolone as well as 5 mg of nebulized albuterol.? Serum magnesium low at 1.3. This 47yo M with COPD on 2L O2 at home, YARELIS not yet on CPAP, HFpEF, DM2, and CKD3 was admitted here 08/01-08/07/22 for multilobar PNA with COPD and CHF exacerbations and again admitted 08/11-08/13/22 for CHF exacerbation.? Both times he briefly required BiPAP in the ED but was weaned off.? He presented on 08/17/22 after 1 day of worsening dyspnea and was admitted for hypoxia from COPD and CHF. He was treated with steroids and nebulized bronchodilators. Respiratory pathogen panel negative. Infiltrate on CXR was attributed to resolving pneumonia; procalcitonin is low. He was diuresed with IV furosemide and the oral dose was increased. He was weaned to his home dose of 2-3L of oxygen. He was given CPAP at night in the hospital. He has completed PSG and CPAP titration study as outpatient and is scheduled to see his patient safety tech on 08/23/22 for CPAP initiation. He was started on oral magnesium repletion. Serum creatinine remained stable with diuresis. He was discharged home with VNA services. Time Spent with Patient Time attestation: Total time spent providing and/or coordinating discharge services: 40 Discharge coordination time: Greater than 30 minutes Quality: Safe Use of Opioids Does Pt have an Active Cancer Diagnosis on the Problem List?: No Quality: Stroke Does the patient have a stroke diagnosis?: No Physical Exam Vital Signs: Vital Signs: Last Vital Signs Temp 97.9 F 08/20/22 07:59 Pulse 82 08/20/22 08:19 Resp 18 08/20/22 08:19 BP 143/78 H 08/20/22 07:59 Pulse Ox 98 08/20/22 07:59 O2 Del Method 08/20/22 07:59 O2 Flow Rate 2 08/20/22 07:59 FiO2 93 08/17/22 22:36 Oxygen Flow Rate 4 08/17/22 13:40 BMI result Body Mass Index 22.4 Gen: NAD HEENT: sclera anicteric, moist mucus membranes Neck: supple, no JVD Lungs: clear bilaterally Heart: regular rate and rhythm, no murmurs Abd: soft, non-tender, non-distended Ext: no edema Skin: warm/well-perfused Neuro: alert and oriented x3, no focal findings Psych: appropriate affect ? DS: Data Data Completed and Pending Completed studies during hospitalization [Text1]: Laboratory Results WBC 17.3 X10*3/uL (4.8-10.8) H 08/20/22 06:17 RBC 3.58 X10*6/uL (4.60-5.80) L 08/20/22 06:17 Hgb 9.6 g/dl (14.0-18.0) L 08/20/22 06:17 Hct 30.2 % (42.0-52.0) L 08/20/22 06:17 MCV 84.4 fL (80.0-98.0) 08/20/22 06:17 MCH 26.8 pg (27.0-33.0) L 08/20/22 06:17 MCHC 31.8 g/dl (31.0-36.0) 08/20/22 06:17 RDW 16.3 % (11.0-16.0) H 08/20/22 06:17 Plt Count 427 X10*3/uL (160-400) H 08/20/22 06:17 MPV 10.5 fL (9.4-12.4) 08/20/22 06:17 Immature Gran % (Auto) 0.6 % (0.0-0.4) H 08/17/22 13:49 Neut % (Auto) 85.8 % (45-73) H 08/17/22 13:49 Lymph % (Auto) 7.5 % (20-40) L 08/17/22 13:49 [place] % (Auto) 5.1 % (2-11) 08/17/22 13:49 Eos % (Auto) 0.8 % (0-4) 08/17/22 13:49 Baso % (Auto) 0.2 % (0-2) 08/17/22 13:49 Lymph # (Auto) 1.4 X10*3/uL (1.2-4.9) 08/17/22 13:49 [place] # (Auto) 0.9 X10*3/uL (0.1-1.2) 08/17/22 13:49 Eos # (Auto) 0.2 X10*3/uL (0.0-0.4) 08/17/22 13:49 Baso # (Auto) 0.0 X10*3/uL (0.0-0.2) 08/17/22 13:49 Abs Immat Gran (auto) 0.11 X10*3/uL (0.00-0.03) H 08/17/22 13:49 Absolute Neuts (auto) 15.6 x10*3/uL (2.0-8.3) H 08/17/22 13:49 Absolute Nucleated RBC 0.000 X10*3/uL (0.0-0.012) 08/20/22 06:17 Nucleated RBC % (auto) 0.0 /100WBC (0.0-0.2) 08/20/22 06:17 PT 11.4 SEC (10.0-13.1) 08/17/22 13:49 INR 1.0 (0.9-1.1) 08/17/22 13:49 VBG pH 7.44 (7.32-7.43) H 08/18/22 06:13 VBG pCO2 26 mmHg 08/18/22 06:13 VBG pO2 150 mmHg 08/18/22 06:13 VBG HCO3 18 mmol/L (22-26) L 08/18/22 06:13 VBG O2 Saturation 99.0 % 08/18/22 06:13 VBG Base Excess -4.5 mmol/L 08/18/22 06:13 Sodium 141 mmol/L (135-145) 08/20/22 06:17 Potassium 4.3 mmol/L (3.3-5.1) D 08/20/22 06:17 Chloride 107 mmol/L (96-108) 08/20/22 06:17 Carbon Dioxide 21 mmol/L (22-29) L 08/20/22 06:17 Anion Gap 17 (12-20) 08/20/22 06:17 BUN 36 mg/dL (9-16) H 08/20/22 06:17 Creatinine 1.56 mg/dL (0.5-1.4) H 08/20/22 06:17 Estim Creat Clear Calc 50.1 08/20/22 06:17 Estimated GFR 48 08/20/22 06:17 POC Glucose 128 mg/dL (60-115) H 08/20/22 07:13 Random Glucose 128 mg/dL (60-115) H D 08/20/22 06:17 Lactic Acid 1.3 mmol/L (0.5-2.0) 08/17/22 14:18 Calcium 8.6 mg/dL (8.4-10.2) 08/20/22 06:17 Magnesium 1.9 mg/dL (1.6-2.6) 08/20/22 06:17 Total Bilirubin 0.3 mg/dL (0.0-1.0) 08/17/22 13:49 AST 15 U/L (5-37) 08/17/22 13:49 ALT 17 U/L (0-40) 08/17/22 13:49 Alkaline Phosphatase 100 U/L (39-117) 08/17/22 13:49 Troponin I High Sens 8.3 ng/L (<3.5-35.0) 08/17/22 13:49 B-Natriuretic Peptide 412 pg/mL (<100) H 08/20/22 06:17 Total Protein 6.5 g/dL (6.5-8.0) 08/17/22 13:49 Albumin 3.6 g/dL (3.5-5.0) 08/17/22 13:49 Procalcitonin 0.04 ng/mL 08/17/22 13:49 Urine Color Yellow 08/17/22 15:37 Urine Appearance Clear 08/17/22 15:37 Urine pH 5.5 (5.0-9.0) 08/17/22 15:37 Ur Specific Bone Gap 1.010 (1.005-1.025) 08/17/22 15:37 Urine Protein 100 (2+) mg/dL (Neg-Trace) H 08/17/22 15:37 Urine Glucose (UA) 250 mg/dL (Negative) H 08/17/22 15:37 Urine Ketones Negative mg/dL (Negative) 08/17/22 15:37 Urine Blood Negative (Negative) 08/17/22 15:37 Urine Nitrite Negative (Negative) 08/17/22 15:37 Ur Leukocyte Esterase Negative (Negative) 08/17/22 15:37 Urine RBC 0-2 /HPF (0-2) 08/17/22 15:37 Urine WBC 0-5 /HPF (0-5) 08/17/22 15:37 Ur Squamous Epith Cells 0-2 /HPF (0-2) 08/17/22 15:37 Urine Bacteria None Seen (None Seen) 08/17/22 15:37 Hyaline Casts 0-2 /LPF (0-2) 08/17/22 15:37 Respiratory Panel Mckeon See Note 08/18/22 13:59 Adenovirus (Rapid PCR) Not Detected (Not Detect.) 08/18/22 13:59 B.pert (TEM-PCR) Not Detected (Not Detect.) 08/18/22 13:59 B.parapertussis DNA PCR Not Detected (Not Detect.) 08/18/22 13:59 C. pneumoniae DNA (PCR) Not Detected (Not Detect.) 08/18/22 13:59 Coronavirus OC43 (PCR) Not Detected (Not Detect.) 08/18/22 13:59 Coronavirus HKU1 (PCR) Not Detected (Not Detect.) 08/18/22 13:59 Coronavirus 229E (PCR) Not Detected (Not Detect.) 08/18/22 13:59 COVID-19 (XANDER) Negative (Negative) 08/17/22 14:18 COVID-19 Clin Com See Note 08/17/22 14:18 Coronavirus NL63 (PCR) Not Detected (Not Detect.) 08/18/22 13:59 Human Metapneumovir PCR Not Detected (Not Detect.) 08/18/22 13:59 Influenza A (RT-PCR) Not Detected (Not Detect.) 08/18/22 13:59 Influenza B (RT-PCR) Not Detected (Not Detect.) 08/18/22 13:59 M. pneumoniae (PCR) Not Detected (Not Detect.) 08/18/22 13:59 Parainfluenza 1 (PCR) Not Detected (Not Detect.) 08/18/22 13:59 Parainfluenza 2 (PCR) Not Detected (Not Detect.) 08/18/22 13:59 Parainfluenza 3 (PCR) Not Detected (Not Detect.) 08/18/22 13:59 Parainfluenza 4 (PCR) Not Detected (Not Detect.) 08/18/22 13:59 RSV (PCR) Not Detected (Not Detect.) 08/18/22 13:59 Entero/Rhino (PCR) Not Detected (Not Detect.) 08/18/22 13:59 SARS-CoV-2 RNA (RT-PCR) Not Detected (Not Detect.) 08/18/22 13:59 Impressions Chest X-Ray 08/17/22 14:00 IMPRESSION: Small bilateral pleural effusion and scattered infiltrates with increased atelectasis/infiltrate in the right upper lobe suggesting an infectious/inflammatory process. A cardiogenic component cannot be excluded. Discharge Plan Discharge Anticipated Discharge Date/Time: 08/20/22 10:53 Patient Disposition: Home Health Service Discharge Diagnosis: # COPD exacerbation # acute/chronic HFpEF # [id number] hypoxic respiratory failure # YARELIS # hypoMg # KELVIN/CKD3 Referrals: Nisa Machado MD [Physician] - 08/23/22 Zari Henry MD [Primary Care Provider] - 1 Week Discharge Medications: New furosemide 40 mg Tablet 40 mg PO DAILY Qty: 30 0RF Protocol: Hold for SBP< HOLD for SBP < : 90 nicotine (polacrilex) 2 mg Gum 2 mg buccal Q1H PRN (Reason: nicotini cravingz) Qty: 100 5RF prednisone 20 mg Tablet 40 mg PO DAILY Qty: 6 0RF magnesium oxide 400 mg (241.3 mg magnesium) Tablet 400 mg PO BIDPC Qty: 60 0RF Continued insulin glargine [Lantus U-100 Insulin] 100 unit/mL Solution 15 unit subcut BEDTIME Qty: 10 0RF hydralazine 50 mg Tablet 50 mg PO TID Qty: 90 0RF Protocol: Hold for SBP< HOLD for SBP < : 90 atorvastatin 40 mg tablet 1 tab PO DAILY trazodone 50 mg tablet 1 - 2 tab PO BEDTIME metoprolol succinate 100 mg tablet extended release 24 hr 1 tab PO DAILY omeprazole 40 mg capsule,delayed release(DR/EC) 1 cap PO DAILY aspirin 81 mg tablet,delayed release (DR/EC) 1 tab PO DAILY gabapentin 300 mg capsule 1 cap PO TID insulin lispro 100 unit/mL solution See Rx Instructions .ROUTE .COMPLEX Rx Instructions: insulin pump; use up to 100 units daily albuterol sulfate 90 mcg/actuation HFA aerosol inhaler 2 puff INHALATION Q6H lisinopril 40 mg tablet 1 tab PO DAILY metoclopramide HCl 10 mg tablet 1 tab PO QID escitalopram oxalate 10 mg tablet 1 tab PO DAILY Spiriva Respimat 1.25 mcg/actuation mist 2 puff INHALATION DAILY ipratropium-albuterol 0.5 mg-3 mg(2.5 mg base)/3 mL Solution For Nebulization 3 ml inhalation Q8H 30 Days Qty: 180 1RF amlodipine 10 mg Tablet 10 mg PO DAILY 30 Days Qty: 30 0RF Protocol: Hold for SBP< HOLD for SBP < : 90 nicotine 21 mg/24 hr Patch 24 Hour 21 mg transdermal DAILY 30 Days Qty: 28 5RF ferrous sulfate 324 mg (65 mg iron) Tablet,Delayed Release (Dr/Ec) 324 mg PO DAILY 30 Days Qty: 30 0RF Discontinued furosemide 20 mg tablet 20 mg PO QAM Qty: 30 0RF Discharge Orders: Discharge Order (Routine); Ordered 08/20/22 Ordered By: Bo Cameron Diet: Low salt diet Activity on Discharge: As tolerated Stand Alone Forms: Patient Portal Discharge page Care Plan Goals: cardiopulmonary health Health Concerns: # COPD exacerbation - take prednisone 40 mg daily for 2 more days - continue nebulizer + inhaler treatments # acute/chronic HFpEF - increase furosemide from 20 to 40 mg daily - low-sodium diet - weigh yourself daily and call you doctor if you go up by 5 lb or more # [id number] hypoxic respiratory failure - use oxygen 2-3L via nasal cannula # YARELIS - follow up with Dr Machado on 08/23/22 for CPAP fitting # hypoMg - take magnesium oxide as prescribed # KELVIN/CKD3 - creatinine at baseline Plan of Treatment: see above Assessment: See Discharge Summary.
[2022-08-20 11:23] VITALS: PULSE 84; RESP 18; O2SAT 94
[2022-08-20 11:24] LABS: Glucose, Whole Blood 205 mg/dL (60-115)
[2022-08-20 11:58] VITALS: BP 151/74; PULSE 84; RESP 20; TEMP 36.9; O2SAT 95
--- NOTE | 2022-08-20 12:02 | MHC.CM.PN ---
Male 47 DX COPD CHF exacerbations Patient was evaluated by PT. The recommendation is home with services. DP home with [facility]. Patient has arranged for transportation home.
--- NOTE | 2022-08-20 13:57 | PC.NURSE ---
Patient siting in chair with 2L NC in am. Afternoon right before discharge patient on RA with no SOB. Discharge instructions reviewed with patient. IV out and monitor removed. patient took shower before leaving.
== END 2022-08-20 13:05 | disposition home health service (06) | DRG 194 ==
LOC: HO.ED 15:12 → HO.EDOVER 16:32 → HO.IMC 18:12
PROVIDERS: Admitting Provider Family Medicine; Emergency Provider Student in an Organized Health Care Education/Training Program; PCP Internal Medicine; Visit Provider Family Medicine
DX: I13.0 Hypertensive heart and chronic kidney disease with heart failure and stage 1 through stage 4 chronic kidney disease, or unspecified chronic kidney disease (principal); J96.21 Acute and chronic respiratory failure with hypoxia; N17.9 Acute kidney failure, unspecified; J44.1 Chronic obstructive pulmonary disease with (acute) exacerbation; E11.51 Type 2 diabetes mellitus with diabetic peripheral angiopathy without gangrene; E11.40 Type 2 diabetes mellitus with diabetic neuropathy, unspecified; K31.84 Gastroparesis; N18.30 Chronic kidney disease, stage 3 unspecified; I50.33 Acute on chronic diastolic (congestive) heart failure; G47.33 Obstructive sleep apnea (adult) (pediatric); E83.42 Hypomagnesemia; E78.5 Hyperlipidemia, unspecified; F17.210 Nicotine dependence, cigarettes, uncomplicated; E11.43 Type 2 diabetes mellitus with diabetic autonomic (poly)neuropathy; F39 Unspecified mood [affective] disorder; Z99.81 Dependence on supplemental oxygen; Z87.01 Personal history of pneumonia (recurrent); Z71.6 Tobacco abuse counseling; Z20.822 Contact with and (suspected) exposure to COVID-19; Z88.8 Allergy status to other drugs, medicaments and biological substances; Z79.4 Long term (current) use of insulin; Z79.52 Long term (current) use of systemic steroids; Z79.82 Long term (current) use of aspirin; Z79.899 Other long term (current) drug therapy
CPT/HCPCS: 36415; 71045; 80048; 80053; 81001; 81003; 82803; 82947; 83605; 83735; 83880; 84145; 84484; 85025; 85027; 85610; 87040; 87633; 87635; 93005; 94640; 94660; 97110; 97162; 99285; J1650; J1940; J2920; J2930; J3475

== ENCOUNTER 2022-08-24 16:07 | Emergency (ER) | payer OTHER, SELFPAY ==
--- NOTE | ~2022-08-24 | CT_ITS ---
EXAMINATION: CTA CHEST PE STUDY CLINICAL INFORMATION: sob COMPARISON: No pertinent prior studies are available for comparison. TECHNIQUE: Prior to contrast administration, noncontrast localization images were obtained. After the administration of 75 mL of Omnipaque nonionic IV contrast, contiguous thin slice helical images were obtained through the thorax. Reformatted MIP images in the coronal and sagittal planes were obtained at the acquisition workstation. This CT examination was performed using dose optimization techniques as appropriate, variously including the following: *Automated exposure control *Adjustment of mA and/or kV according to patient size (this includes techniques or standardized protocols for targeted exams where dose is matched to indication/reason for exam; i.e. extremities or head) *Use of iterative reconstruction technique DLP: 215 mGy-cm. FINDINGS: The bolus timing on this study was acceptable for visualization of the pulmonary arterial tree. There are no intraluminal pulmonary arterial filling defects present to suggest pulmonary embolism. Dependent airspace changes more likely due to atelectasis. Bilateral small to moderate-sized pleural effusions. No abnormal pulmonary nodules or masses are appreciated. No significant hilar or mediastinal adenopathy. There is no evidence of pneumothorax. The heart is normal in size. No evidence of ventricular septal bowing or right heart strain. Great vessels are normal. Small hiatal hernia suggested. There is no pericardial effusion or pericardial thickening. Limited evaluation of the upper abdominal viscera is unremarkable. CT/CT angio chest PE protocol IMPRESSION: 1. No evidence for pulmonary emboli. Dependent airspace changes more likely due to atelectasis. Small to moderate-sized bilateral pleural effusions VTE: Negative
--- NOTE | 2022-08-24 16:14 | ED_ITS ---
HPI - SOB/Dyspnea General Chief Complaint: Dyspnea Stated Complaint: sob Time Seen by Provider: 08/24/22 16:14 Source: patient and EMS Mode of arrival: EMS Limitations: no limitations History of Present Illness HPI Narrative: 47-year-old male presents via EMS for evaluation for lightheadedness, weakness, and shortness of breath. Patient does have insulin-dependent type 2 diabetes, COPD and is O2 dependent, with a history of CHF, YARELIS, KELVIN and PAD. Patient states that he has concerns because he has CPAP machine has not been delivered. MD elicited complaint: shortness of breath and cough Pertinent past history: COPD, congestive heart failure and diabetes Onset (ago): day(s) (2) Context: recent illness Timing: progressively worsening Severity: moderate Exacerbating factors: exertion and coughing Relieving factors: nothing Known history of: COPD, congestive heart failure and diabetes Associated symptoms: lightheadedness Treatment prior to arrival: oxygen Related Data Home oxygen amount: 2 liters Home Medications Medication Instructions Recorded Confirmed albuterol sulfate 90 mcg/actuation 2 puff inhalation Q6H 08/01/22 08/17/22 aerosol inhaler aspirin 81 mg tablet,delayed 1 tab PO DAILY 08/01/22 08/17/22 release atorvastatin 40 mg tablet 1 tab PO DAILY 08/01/22 08/17/22 escitalopram oxalate 10 mg tablet 1 tab PO DAILY 08/01/22 08/17/22 gabapentin 300 mg capsule 1 cap PO TID 08/01/22 08/17/22 insulin lispro 100 unit/mL See Rx Instructions .Route .COMPLEX 08/01/22 08/17/22 subcutaneous solution lisinopril 40 mg tablet 1 tab PO DAILY 08/01/22 08/17/22 metoclopramide HCl 10 mg tablet 1 tab PO QID 08/01/22 08/17/22 metoprolol succinate 100 mg 1 tab PO DAILY 08/01/22 08/17/22 tablet,extended release 24 hr omeprazole 40 mg capsule,delayed 1 cap PO DAILY 08/01/22 08/17/22 release tiotropium bromide 1.25 2 puff inhalation DAILY 08/01/22 08/17/22 mcg/actuation mist for inhalation (Spiriva Respimat) trazodone 50 mg tablet 1 - 2 tab PO BEDTIME 08/01/22 08/17/22 Previous Rx's Medication Instructions Recorded amlodipine 10 mg tablet 10 mg PO DAILY 30 days #30 tabs 08/07/22 ferrous sulfate 324 mg (65 mg 324 mg PO DAILY 30 days #30 tabs 08/07/22 iron) tablet,delayed release ipratropium 0.5 mg-albuterol 3 mg 3 ml inhalation Q8H 30 days #180 mL 08/07/22 (2.5 mg base)/3 mL nebulization soln nicotine 21 mg/24 hr daily 21 mg transdermal DAILY 30 days 08/07/22 transdermal patch #28 ea hydralazine 50 mg tablet 50 mg PO TID #90 tabs 08/13/22 insulin glargine 100 unit/mL 15 unit (0.15 mL) subcut BEDTIME 08/13/22 subcutaneous solution (Lantus #10 mL U-100 Insulin) furosemide 40 mg tablet 40 mg PO DAILY #30 tabs 08/20/22 magnesium oxide 400 mg (241.3 mg 400 mg PO BIDPC #60 tabs 08/20/22 magnesium) tablet nicotine (polacrilex) 2 mg gum 2 mg buccal Q1H PRN nicotini 08/20/22 cravingz #100 ea prednisone 20 mg tablet 40 mg PO DAILY #6 tabs 08/20/22 Allergies Allergy/AdvReac Type Severity Reaction Status Date / Time dulaglutide [From [facility]] Allergy Unknown Verified 01/02/22 21:08 metformin [METFORMIN] AdvReac Mild DIARRHEA, Verified 09/22/20 13:18 nausea and vomiting Review of Systems Review of Systems: Constitutional: No Fever, No Chills ENT/Mouth: No Ear Pain, No Hoarseness, No sore throat Eyes: No Eye Pain, No Swelling, No Redness, No Foreign Body Cardiovascular: No Chest Pain, positive SOB Respiratory: No Cough, positive Dyspnea Gastrointestinal: No Nausea, No Vomiting, No Diarrhea, No abdominal Pain Genitourinary: No Dysuria, No Hematuria Musculoskeletal: No joint pain, No Myalgias, No Joint Swelling Skin: No Skin lacerations, No rash Neuro: Positive Weakness, positive lightheadedness, No Numbness, No Paresthesias, No Loss of Consciousness, No Dizziness, No Headache Psych: No Anxiety/Panic, No Depression Heme/Lymph: no easy bruising, no Lymphadenopathy Endocrine: No Polyuria, No Polydipsia Yes all other systems are reviewed and are negative PMFSH Past Medical History Attestation statement: The following information was validated with the patient. Source: old records reviewed Medical History Acute on chronic anemia Acute on chronic diastolic (congestive) heart failure Acute respiratory failure KELVIN (acute kidney injury) Anxiety Asthma CHF exacerbation Congestive heart failure Diabetes HLD (hyperlipidemia) HTN (hypertension) Hypercholesteremia Hyperglycemia due to type 2 diabetes mellitus Hypoxia YARELIS (obstructive sleep apnea) PAD (peripheral artery disease) Uncontrolled hypertension Surgical History S/P angiogram of extremity Family History Family History Father Alzheimer disease CAD (coronary artery disease) Social History Social History Household Members: Family Housing: House Do you presently have visiting nurse or other home services: No Alcohol intake: current Alcohol intake frequency: a few times a month Patient Tobacco Use Status: Current everyday Tobacco user Tobacco use type: Cigarette Cigarettes Per Day: 10 Years Smoked: 29 e-Cigarette/Vaping Use: Never Used Second Hand Smoke Exposure: No Substance Use Type: Marijuana Advance Directives: Yes Advance Directives on File: Yes Advance Directives Date on File: 06/21/21 service: No Current occupational status: disabled Physical Exam Vital Signs: Vital Signs: Last Vital Signs Temp 98.8 F 08/24/22 21:25 Pulse 78 08/24/22 21:25 Resp 18 08/24/22 21:25 BP 134/79 08/24/22 21:25 Pulse Ox 97 08/24/22 21:25 O2 Del Method 08/24/22 21:25 O2 Flow Rate 3 08/24/22 21:25 Oxygen Flow Rate 3 08/24/22 16:22 BMI result Body Mass Index 23.5 Appearance: Alert. Oriented X3. No acute distress. Eyes: Pupils equal, round and reactive to light. ENT: Pharynx normal. Neck: Normal inspection. Neck supple. CVS: Normal heart rate and rhythm. Pulses normal. Respiratory: No respiratory distress. Lung sounds clear but diminished to auscultation all lobes. Even unlabored respirations. Abdomen: Soft and nontender. Skin: Skin warm and dry. Normal skin color. Normal skin turgor. Extremities: No lower extremity edema. Moves all extremities against resistance. Neuro: No motor deficit. No sensory deficit. Cranial nerves 2-12 intact. Course Course Course Narrative: 47-year-old male presents for evaluation for several days of shortness of breath, lightheadedness and weakness. Has had multiple admissions over the past month at this facility and [facility] for KELVIN, CHF and hypoxia. Patient appears tired, is able to speak in complete sentences, has even unlabored respirations, and is O2 dependent at this time. He does not have any appreciable edema to bilateral lower extremities, lung sounds are diminished at the bases but clear, no chest wall tenderness or abdominal tenderness to palpation. Patient does report pain on inspiration, shortness breath even though he is O2 dependent. Will order CT PE study 20:00 white count 15.5 which is consistent with his prior values dating back to 2020, H&H 10.5/33.0 which is an improvement from his prior values. Potassium is 5.2, BUN 23 and creatinine 1.49, prior BUN 36 and creatinine 1.56 on 08/20/2022. Will give 1 L of normal saline, will not adjust potassium secondary to saline bolus. BNP is 219, an improvement from 412 on 08/20/2022. Patient does take Lasix 40 mg daily. At this time I do not feel that this patient needs to be diuresed as he appears dry, and has some mild KELVIN. 21:13 CT scan a is negative for acute findings. Patient continues to maintain O2 sat 99-100% on 2 L of nasal cannula oxygen, I did offer patient case [facility] as he does not meet criteria for admission. Patient states that he would like to be discharged home and will follow up with primary care. He does understand that if symptoms worsen or if he feels like he can not take care of himself that he can return to the emergency department at any time. plan of care is to discharge home. Patient verbalized understanding of and agrees to plan of care discharge home. Verbalized understanding of signs and symptoms indicating need for emergent intervention. MDM - SOB/Dyspnea Differential Diagnosis Differential diagnosis: Likely acute exacerbation of chronic obstructive airways disease, congestive heart failure, pneumonia, asthma with exacerbation, pulmonary embolism, pleural effusion, sleep apnea and anemia Medical Records Attestation: I reviewed the patient's medical records. Lab Data Attestation: I reviewed the patient's lab results. Result diagrams: 08/24/22 17:10 08/24/22 17:10 Labs: Lab Results 08/24/22 08/24/22 08/24/22 Range/Units 17:09 17:10 17:10 WBC 15.5 H (4.8-10.8) X10*3/uL RBC 3.99 L (4.60-5.80) X10*6/uL Hgb 10.5 L (14.0-18.0) g/dl Hct 33.0 L (42.0-52.0) % MCV 82.7 (80.0-98.0) fL MCH 26.3 L (27.0-33.0) pg MCHC 31.8 (31.0-36.0) g/dl RDW 15.8 (11.0-16.0) % Plt Count 477 H (160-400) X10*3/uL MPV 10.0 (9.4-12.4) fL Immature Gran % (Auto) 0.6 H (0.0-0.4) % Neut % (Auto) 75.6 H (45-73) % Lymph % (Auto) 14.4 L (20-40) % Tama % (Auto) 7.0 (2-11) % Eos % (Auto) 2.2 (0-4) % Baso % (Auto) 0.2 (0-2) % Lymph # (Auto) 2.2 (1.2-4.9) X10*3/uL Tama # (Auto) 1.1 (0.1-1.2) X10*3/uL Eos # (Auto) 0.3 (0.0-0.4) X10*3/uL Baso # (Auto) 0.0 (0.0-0.2) X10*3/uL Abs Immat Gran (auto) 0.10 H (0.00-0.03) X10*3/uL Absolute Neuts (auto) 11.7 H (2.0-8.3) x10*3/uL Absolute Nucleated RBC 0.000 (0.0-0.012) X10*3/uL Nucleated RBC % (auto) 0.0 (0.0-0.2) /100WBC Sodium 137 (135-145) mmol/L Potassium 5.2 H D (3.3-5.1) mmol/L Chloride 104 (96-108) mmol/L Carbon Dioxide 21 L (22-29) mmol/L Anion Gap 17 (12-20) BUN 23 H (9-16) mg/dL Creatinine 1.49 H (0.5-1.4) mg/dL Estim Creat Clear Calc 52.7 Estimated GFR 50 Random Glucose 207 H D (60-115) mg/dL Lactic Acid 1.0 (0.5-2.0) mmol/L Calcium 8.7 (8.4-10.2) mg/dL Magnesium 1.8 (1.6-2.6) mg/dL Troponin I High Sens (<3.5-35.0) ng/L B-Natriuretic Peptide (<100) pg/mL Influenza Type A (PCR) (Negative) Influenza Type B (PCR) (Negative) RSV RNA Qual (PCR) (Negative) SARS-CoV-2 RNA (RT-PCR) (Negative) 08/24/22 08/24/22 Range/Units 17:10 17:12 WBC (4.8-10.8) X10*3/uL RBC (4.60-5.80) X10*6/uL Hgb (14.0-18.0) g/dl Hct (42.0-52.0) % MCV (80.0-98.0) fL MCH (27.0-33.0) pg MCHC (31.0-36.0) g/dl RDW (11.0-16.0) % Plt Count (160-400) X10*3/uL MPV (9.4-12.4) fL Immature Gran % (Auto) (0.0-0.4) % Neut % (Auto) (45-73) % Lymph % (Auto) (20-40) % Tama % (Auto) (2-11) % Eos % (Auto) (0-4) % Baso % (Auto) (0-2) % Lymph # (Auto) (1.2-4.9) X10*3/uL Tama # (Auto) (0.1-1.2) X10*3/uL Eos # (Auto) (0.0-0.4) X10*3/uL Baso # (Auto) (0.0-0.2) X10*3/uL Abs Immat Gran (auto) (0.00-0.03) X10*3/uL Absolute Neuts (auto) (2.0-8.3) x10*3/uL Absolute Nucleated RBC (0.0-0.012) X10*3/uL Nucleated RBC % (auto) (0.0-0.2) /100WBC Sodium (135-145) mmol/L Potassium (3.3-5.1) mmol/L Chloride (96-108) mmol/L Carbon Dioxide (22-29) mmol/L Anion Gap (12-20) BUN (9-16) mg/dL Creatinine (0.5-1.4) mg/dL Estim Creat Clear Calc Estimated GFR Random Glucose (60-115) mg/dL Lactic Acid (0.5-2.0) mmol/L Calcium (8.4-10.2) mg/dL Magnesium (1.6-2.6) mg/dL Troponin I High Sens < 3.5 D (<3.5-35.0) ng/L B-Natriuretic Peptide 219 H (<100) pg/mL Influenza Type A (PCR) NEGATIVE (Negative) Influenza Type B (PCR) NEGATIVE (Negative) RSV RNA Qual (PCR) NEGATIVE (Negative) SARS-CoV-2 RNA (RT-PCR) NEGATIVE (Negative) Imaging Data CT PE: Attestation: I personally reviewed and interpreted this imaging study as follows: Radiologist's impression: FINDINGS: The bolus timing on this study was acceptable for visualization of the pulmonary arterial tree. There are no intraluminal pulmonary arterial filling defects present to suggest pulmonary embolism. Dependent airspace changes more likely due to atelectasis. Bilateral small to moderate-sized pleural effusions. No abnormal pulmonary nodules or masses are appreciated. No significant hilar or mediastinal adenopathy.? There is no evidence of pneumothorax. The heart is normal in size. No evidence of ventricular septal bowing or right heart strain. Great vessels are normal. Small hiatal hernia suggested.? There is no pericardial effusion or pericardial thickening. Limited evaluation of the upper abdominal viscera is unremarkable. CT/CT angio chest PE protocol IMPRESSION: 1.? No evidence for pulmonary emboli. Dependent airspace changes more likely due to atelectasis. Small to moderate-sized bilateral pleural effusions ? ? VTE: Negative ECG Data Attestation: I personally reviewed and interpreted this ECG as follows: ECG interpretation date: 08/24/22 ECG interpretation time: 18:45 Prior ECG tracings: available for review Interpretation: Vent. rate 83 BPM IN interval 144 ms QRS duration 76 ms QT/QTc 374/439 ms P-R-T axes 48 39 38 Normal sinus rhythm Normal ECG When compared with ECG of 18-AUG-2022 09:39, No significant change was found Scores Heart Score History: -0- slightly suspicious ECG: -0- normal Age: -1- >45 - <65 Risk factory: -1- 1 or 2 risk factors Troponin: -0- < or = normal limit Score: 2 Risk: 1.7% Wells PE Clinical symptoms of DVT: 3 Score: 3 2-tier Risk: likely risk (17-53%) 3-tier Risk: moderate risk (27.8%) Discharge Plan Discharge Clinical Impression: Congestive heart failure, Shortness of breath Patient Disposition: Home, Self-Care Instructions: Using Oxygen at Home (ED), Shortness of Breath (ED) Additional Instructions: You were evaluated for lightheadedness and shortness of breath. Your lab values are consistent with your prior values. We did give you 1 L of fluids for mild KELVIN. Your COVID test is negative. Cardiac enzymes are negative. Your CT angio of the chest is negative for pulmonary embolism and acute findings. It does show bilateral moderate-sized pleural effusions. Please follow-up with primary care physician this week. Thank you for choosing this emergency department for evaluation. Please follow-up with primary care physician as needed. Return to the emergency department for any new, concerning, or worsening symptoms. Prescriptions: No Action insulin glargine [Lantus U-100 Insulin] 100 unit/mL Solution 15 unit subcut BEDTIME Qty: 10 0RF hydralazine 50 mg Tablet 50 mg PO TID Qty: 90 0RF Protocol: Hold for SBP< HOLD for SBP < : 90 atorvastatin 40 mg tablet 1 tab PO DAILY trazodone 50 mg tablet 1 - 2 tab PO BEDTIME metoprolol succinate 100 mg tablet extended release 24 hr 1 tab PO DAILY omeprazole 40 mg capsule,delayed release(DR/EC) 1 cap PO DAILY aspirin 81 mg tablet,delayed release (DR/EC) 1 tab PO DAILY gabapentin 300 mg capsule 1 cap PO TID insulin lispro 100 unit/mL solution See Rx Instructions .ROUTE .COMPLEX Rx Instructions: insulin pump; use up to 100 units daily albuterol sulfate 90 mcg/actuation HFA aerosol inhaler 2 puff INHALATION Q6H lisinopril 40 mg tablet 1 tab PO DAILY metoclopramide HCl 10 mg tablet 1 tab PO QID escitalopram oxalate 10 mg tablet 1 tab PO DAILY Spiriva Respimat 1.25 mcg/actuation mist 2 puff INHALATION DAILY ipratropium-albuterol 0.5 mg-3 mg(2.5 mg base)/3 mL Solution For Nebulization 3 ml inhalation Q8H 30 Days Qty: 180 1RF amlodipine 10 mg Tablet 10 mg PO DAILY 30 Days Qty: 30 0RF Protocol: Hold for SBP< HOLD for SBP < : 90 nicotine 21 mg/24 hr Patch 24 Hour 21 mg transdermal DAILY 30 Days Qty: 28 5RF ferrous sulfate 324 mg (65 mg iron) Tablet,Delayed Release (Dr/Ec) 324 mg PO DAILY 30 Days Qty: 30 0RF furosemide 40 mg Tablet 40 mg PO DAILY Qty: 30 0RF Protocol: Hold for SBP< HOLD for SBP < : 90 nicotine (polacrilex) 2 mg Gum 2 mg buccal Q1H PRN (Reason: nicotini cravingz) Qty: 100 5RF prednisone 20 mg Tablet 40 mg PO DAILY Qty: 6 0RF magnesium oxide 400 mg (241.3 mg magnesium) Tablet 400 mg PO BIDPC Qty: 60 0RF Interventions: ED Discharge Assessment Last Done: 08/24/22 21:37 Discharge Date/Time: 08/24/22 21:38
--- NOTE | 2022-08-24 16:17 | ECG_ITS ---
Test Reason : SOB Blood Pressure : / mmHG Vent. Rate : 083 BPM Atrial Rate : 083 BPM P-R Int : 144 ms QRS Dur : 076 ms QT Int : 374 ms P-R-T Axes : 048 039 038 degrees QTc Int : 439 ms Normal sinus rhythm Normal ECG When compared with ECG of 18-AUG-2022 09:39, No significant change was found Referred By: Annika Kirk Electronically Signed By:YULISSA MUNROE MD
[2022-08-24 16:22] VITALS: BP 142/72; PULSE 71; RESP 19; TEMP 37.1; O2SAT 99; BMI 23.5
[2022-08-24] MEDS: Albuterol Sulfate 7.5 MG, Albuterol Sulfate (0.083%) 2.5 MG 10 MG INHALE (16:31)
[2022-08-24 16:32] VITALS: PULSE 72; RESP 18; O2SAT 99
[2022-08-24 17:17] LABS: MANUAL DIFF FLAG NO
[2022-08-24 17:27] LABS: Basophils Percent Auto 0.2 % (0-2); Eosinophils Absolute Auto 0.3 X10*3/uL (0.0-0.4); Eosinophils Percent Auto 2.2 % (0-4); Hemoglobin 10.5 g/dl (14.0-18.0); Imm Gran Pct Auto 0.6 % (0.0-0.4); Lymphocytes Absolute Auto 2.2 X10*3/uL (1.2-4.9); Lymphocytes Percent Auto 14.4 % (20-40); Mean Corpuscular HGB Conc 31.8 g/dl (31.0-36.0); Mean Corpuscular Hemoglobin 26.3 pg (27.0-33.0); Mean Corpuscular Volume 82.7 fL (80.0-98.0); Monocytes Absolute Auto 1.1 X10*3/uL (0.1-1.2); Neutrophils Absolute Auto 11.7 x10*3/uL (2.0-8.3); Neutrophils Percent Auto 75.6 % (45-73); Platelet Count 477 X10*3/uL (160-400); Red Blood Count 3.99 X10*6/uL (4.60-5.80); Red Cell Distribution Width 15.8 % (11.0-16.0); White Blood Count 15.5 X10*3/uL (4.8-10.8)
[2022-08-24 17:34] LABS: Anion Gap 17 (12-20); Blood Urea Nitrogen 23 mg/dL (9-16); Calcium 8.7 mg/dL (8.4-10.2); Carbon Dioxide 21 mmol/L (22-29); Chloride 104 mmol/L (96-108); Creatinine Clr Calc Pharmacy 52.7; Estimated Glomerular Filt Rate 50; Glucose Random 207 mg/dL (60-115); Magnesium 1.8 mg/dL (1.6-2.6); Potassium 5.2 mmol/L (3.3-5.1); Sodium 137 mmol/L (135-145)
[2022-08-24 17:42] LABS: B Type Natriuretic Peptide 219 pg/mL (<100); Troponin-I High Sensitivity < 3.5 ng/L (<3.5-35.0)
[2022-08-24 17:58] LABS: Influenza A PCR NEGATIVE (Negative); Influenza B PCR NEGATIVE (Negative); Resp Syncy Virus RNA Qual PCR NEGATIVE (Negative); SARS COV2 PCR INHOUSE NEGATIVE (Negative)
[2022-08-24] MEDS: iohexoL 350 MG/ML 100 ML INFUS..BTL IV (18:00)
[2022-08-24] MEDS: 0.9 % Sodium Chloride 1,000 ML 999 ML IVCONT (19:50)
[2022-08-24 21:25] VITALS: BP 134/79; PULSE 78; RESP 18; TEMP 37.1; O2SAT 97
== END 2022-08-24 21:38 | disposition home or self-care (01) ==
PROVIDERS: Nurse Practitioner Family; Emergency Provider Emergency Medicine; PCP Internal Medicine Nephrology
DX: I50.9 Heart failure, unspecified (principal); R06.02 Shortness of breath; R05.9 Cough, unspecified; E11.9 Type 2 diabetes mellitus without complications; J44.9 Chronic obstructive pulmonary disease, unspecified; Z20.822 Contact with and (suspected) exposure to COVID-19; Z99.81 Dependence on supplemental oxygen; Z79.899 Other long term (current) drug therapy; F17.210 Nicotine dependence, cigarettes, uncomplicated; Z71.6 Tobacco abuse counseling
CPT/HCPCS: 0241U; 71275; 80048; 83605; 83735; 83880; 84484; 85025; 87040; 93005; 94640; 96360; 99284; Q9967

== ENCOUNTER 2022-09-07 10:55 | Inpatient (IN) | payer OTHER, SELFPAY ==
--- NOTE | 2022-09-07 | ECG_ITS ---
Test Reason : SOB Blood Pressure : / mmHG Vent. Rate : 115 BPM Atrial Rate : 115 BPM P-R Int : 138 ms QRS Dur : 080 ms QT Int : 336 ms P-R-T Axes : 069 069 066 degrees QTc Int : 464 ms Sinus tachycardia Nonspecific ST abnormality Abnormal ECG When compared with ECG of 24-AUG-2022 18:45, Heart rate has increased ST more depressed Lateral leads Referred By: Theresa Emmanuel Electronically Signed By:YULISSA MUNROE MD
--- NOTE | ~2022-09-07 | XR_ITS ---
EXAMINATION: XR CHEST CLINICAL INFORMATION: Shortness of breath COMPARISON: 08/17/2022 TECHNIQUE: Frontal view of the chest was obtained. FINDINGS: Previously seen bilateral airspace opacities have resolved. Lungs and pleural spaces are clear. Normal pulmonary vascularity. Normal heart size. Regional skeleton intact. XR/XR chest 1V IMPRESSION: No acute pulmonary disease.
--- NOTE | ~2022-09-07 | XR_ITS ---
EXAMINATION: XR CHEST CLINICAL INFORMATION: Hypoxia. COMPARISON: Most recent chest radiograph dated 09/07/2022. TECHNIQUE: Frontal view of the chest was obtained. FINDINGS: Linear probable atelectasis within the left lung base. No confluent airspace consolidation. No pleural effusion or pneumothorax. Stable cardiomediastinal silhouette. XR/XR chest 1V IMPRESSION: Linear probable atelectasis within the left lung base.
--- NOTE | ~2022-09-07 | CT_ITS ---
EXAMINATION: CT ABDOMEN AND PELVIS WITH CONTRAST CLINICAL INFORMATION: Abdominal pain, rule out ulcer perforation. COMPARISON: 06/16/2021 CT scan the abdomen and pelvis. TECHNIQUE: Multidetector volumetric images were obtained from the superior aspect of the liver through the pubic symphysis following administration 85 mL of Omnipaque 350 intravenous contrast. Sagittal and coronal reformatted images were obtained on the technologist's workstation. Oral contrast: No This CT examination was performed using dose optimization techniques as appropriate, variously including the following: *Automated exposure control *Adjustment of mA and/or kV according to patient size (this includes techniques or standardized protocols for targeted exams where dose is matched to indication/reason for exam; i.e. extremities or head) *Use of iterative reconstruction technique DLP: 372 mGy-cm FINDINGS: LUNG BASES: The visualized lung bases are unremarkable. LIVER, GALLBLADDER, AND BILIARY TREE: Unremarkable. PANCREAS: Unremarkable. SPLEEN: Unremarkable. ADRENAL GLANDS: Mild bilateral nodular hypertrophy without significant change. KIDNEYS AND URETERS: The kidneys are normal in size, shape, and attenuation. No hydronephrosis, hydroureter, or calculi seen. No perinephric stranding. BLADDER: Unremarkable. GASTROINTESTINAL TRACT: The stomach, small bowel and appendix are unremarkable. The colon and rectum are unremarkable. ABDOMINAL WALL: No significant hernia is appreciated. LYMPH NODES: No lymphadenopathy. VASCULAR: Moderate to severe atherosclerosis in the infrarenal abdominal aorta and common iliac arteries without dilatation. PELVIC VISCERA: Unremarkable. OSSEOUS STRUCTURES: Unremarkable. CT/CT abdomen pelvis w IV con IMPRESSION: 1. No acute intra-abdominal/pelvic abnormality to explain the patient's pain. No evidence for acute ulcer or perforation. 2. Mild bilateral nodular hypertrophy of the adrenal glands without significant change. This is nonspecific, but can be seen with adrenal hyperplasia.
[2022-09-07 11:00] VITALS: BP 187/96; PULSE 113; O2SAT 100
[2022-09-07 11:06] VITALS: BP 189/86; PULSE 114; RESP 20; TEMP 36.6; O2SAT 100; BMI 21.6
[2022-09-07 11:40] LABS: Basophils Absolute Auto 0.1 X10*3/uL (0.0-0.2); Basophils Percent Auto 0.2 % (0-2); Eosinophils Percent Auto 0.1 % (0-4); Hematocrit 36.7 % (42.0-52.0); Hemoglobin 11.5 g/dl (14.0-18.0); Imm Gran Abs Auto 0.12 X10*3/uL (0.00-0.03); Imm Gran Pct Auto 0.6 % (0.0-0.4); Lymphocytes Absolute Auto 0.7 X10*3/uL (1.2-4.9); Lymphocytes Percent Auto 3.4 % (20-40); MANUAL DIFF FLAG SCAN; Mean Corpuscular HGB Conc 31.3 g/dl (31.0-36.0); Mean Corpuscular Volume 82.8 fL (80.0-98.0); Mean Platelet Volume 9.7 fL (9.4-12.4); Monocytes Absolute Auto 0.7 X10*3/uL (0.1-1.2); Neutrophils Absolute Auto 19.8 x10*3/uL (2.0-8.3); Neutrophils Percent Auto 92.7 % (45-73); Platelet Count 399 X10*3/uL (160-400); Red Blood Count 4.43 X10*6/uL (4.60-5.80); Red Cell Distribution Width 16.3 % (11.0-16.0); SCAN SMEAR FLAG 1; White Blood Count 21.4 X10*3/uL (4.8-10.8)
[2022-09-07 11:41] LABS: Appearance Urine Clear; Color Urine Yellow; Glucose Urine UA >=1000 mg/dL (Negative); Leukocyte Esterase Urine Negative (Negative); Nitrite Urine Negative (Negative); UMIC TRIGGER UACC YES; Urine Blood Small (1+) (Negative); Urine Ketones Trace mg/dL (Negative); Urine Protein >=1000 (4+) mg/dL (Neg-Trace)
[2022-09-07 11:55] LABS: Bacteria Urine None Seen (None Seen); Hyaline Casts Urine 0-2 /LPF (0-2); Squamous Epithelial Cell Urine 0-2 /HPF (0-2); WBC Urine 0-5 /HPF (0-5)
[2022-09-07 11:57] LABS: Amphetamine Screen Urine Not Detected (Not Detect); Barbiturates, Urine Not Detected (Not Detect); Benzodiazepines Screen Urine Not Detected (Not Detect); Cannabinoid Screen Urine Not Detected (Not Detect); Cocaine Screen Urine Not Detected (Not Detect); Fentanyl, urine Not Detected (Not Detect); Opiate Screen Urine Not Detected (Not Detect); Phencyclidine Screen Urine Not Detected (Not Detect)
[2022-09-07 12:06] LABS: Alanine Aminotransferase 29 U/L (0-40); Albumin Level 4.4 g/dL (3.5-5.0); Alkaline Phosphatase 139 U/L (39-117); Aspartate Amino Transferase 20 U/L (5-37); Bilirubin Direct 0.2 mg/dL (0.0-0.5); Bilirubin Total 0.5 mg/dL (0.0-1.0); Blood Urea Nitrogen 20 mg/dL (9-16); Calcium 9.4 mg/dL (8.4-10.2); Estimated Glomerular Filt Rate 53; Glucose Random 424 mg/dL (60-115); Total Protein 7.8 g/dL (6.5-8.0)
[2022-09-07 12:12] LABS: SLIDE REVIEW VERIFIED
[2022-09-07 12:18] LABS: Anion Gap 27 (12-20); Carbon Dioxide 17 mmol/L (22-29); Chloride 105 mmol/L (96-108); Potassium 4.8 mmol/L (3.3-5.1); Sodium 144 mmol/L (135-145)
--- NOTE | 2022-09-07 12:25 | ED.GENADULT ---
HPI - General Adult General Chief complaint: Nausea/Vomiting/Diarrhea Stated complaint: DIFF BREATHING 100% HOME 3LPM,CP ASA GIVEN PER EMS Time Seen by Provider: 09/07/22 11:51 Source: patient and EMS Mode of arrival: EMS Limitations: no limitations History of Present Illness HPI narrative: Patient comes to the emergency room complaining of upper abdominal pain, vomiting coffee-ground emesis since this morning, chest pain since this morning. Patient states that he has had history of similar episodes in the past. Patient admits to drinking alcohol daily. Patient also complaining of chronic shortness of breath. Related Data Home Medications Medication Instructions Recorded Confirmed albuterol sulfate 90 mcg/actuation 2 puff inhalation Q6H 08/01/22 09/07/22 aerosol inhaler aspirin 81 mg tablet,delayed 1 tab PO DAILY 08/01/22 09/07/22 release atorvastatin 40 mg tablet 1 tab PO DAILY 08/01/22 09/07/22 escitalopram oxalate 10 mg tablet 10 mg PO DAILY 08/01/22 09/07/22 gabapentin 300 mg capsule 1 cap PO TID 08/01/22 09/07/22 insulin lispro 100 unit/mL See Rx Instructions .Route .COMPLEX 08/01/22 09/07/22 subcutaneous solution lisinopril 40 mg tablet 1 tab PO DAILY 08/01/22 09/07/22 metoprolol succinate 100 mg 1 tab PO DAILY 08/01/22 09/07/22 tablet,extended release 24 hr omeprazole 40 mg capsule,delayed 1 cap PO DAILY 08/01/22 09/07/22 release trazodone 50 mg tablet 50 mg PO BEDTIME 08/01/22 09/07/22 umeclidinium 62.5 mcg-vilanterol 1 inh inhalation DAILY 09/07/22 09/07/22 25 mcg/actuation powdr for inhalation (Anoro Ellipta) Previous Rx's Medication Instructions Recorded amlodipine 10 mg tablet 10 mg PO DAILY 30 days #30 tabs 08/07/22 ferrous sulfate 324 mg (65 mg 324 mg PO DAILY 30 days #30 tabs 08/07/22 iron) tablet,delayed release ipratropium 0.5 mg-albuterol 3 mg 3 ml inhalation Q8H 30 days #180 mL 08/07/22 (2.5 mg base)/3 mL nebulization soln nicotine 21 mg/24 hr daily 21 mg transdermal DAILY 30 days 08/07/22 transdermal patch #28 ea hydralazine 50 mg tablet 50 mg PO TID #90 tabs 08/13/22 furosemide 40 mg tablet 40 mg PO DAILY #30 tabs 08/20/22 magnesium oxide 400 mg (241.3 mg 400 mg PO BIDPC #60 tabs 08/20/22 magnesium) tablet nicotine (polacrilex) 2 mg gum 2 mg buccal Q1H PRN nicotini 08/20/22 cravingz #100 ea Allergies Allergy/AdvReac Type Severity Reaction Status Date / Time dulaglutide [From [facility]] Allergy Unknown Verified 01/02/22 21:08 metformin [METFORMIN] AdvReac Mild DIARRHEA, Verified 09/22/20 13:18 nausea and vomiting Review of Systems Review of Systems: Constitutional : No Weight loss, No Fever, No Chills, No Night Sweats, No Fatigue, No Malaise ENT/Mouth : No Hearing loss, No Ear Pain, No Nasal Congestion, No Sinus Pain, No Hoarseness, No sore throat, No Rhinorrhea, No Swallowing Difficulty Eyes: No Eye Pain, No Swelling, No Redness, No Foreign Body, No Discharge, No Vision Changes Cardiovascular : Complaining of Chest Pain, complaining of chronic shortness of breath, no orthopnea Respiratory : No Cough, No Sputum, No Wheezing, No Smoke Exposure, No Dyspnea Gastrointestinal : Complaining of nausea vomiting, no diarrhea, coffee-ground emesis Genitourinary : no irregular bleeding, No Dysuria, No Urinary Frequency, No Hematuria, No Urinary Incontinence, No Urgency, No Flank Pain, No Urinary Flow Changes, No Hesitancy Musculoskeletal : No joint pain, No Myalgias, No Joint Swelling Skin : No Skin Lesions, No rash Neuro : No Weakness, No Numbness, No Paresthesias, No Loss of Consciousness, No Dizziness, No Headache Psych : No Anxiety/Panic, No Depression, No SI/HI/AH/VH, No Social Issues, Heme/Lymph: No Bruising, No Bleeding,No Lymphadenopathy Endocrine : No Polyuria, No Polydipsia, No Temperature Intolerance PMFSH Past Medical History Medical History Acute on chronic anemia Acute on chronic diastolic (congestive) heart failure Acute respiratory failure KELVIN (acute kidney injury) Anxiety Asthma CHF exacerbation Congestive heart failure Diabetes HLD (hyperlipidemia) HTN (hypertension) Hypercholesteremia Hyperglycemia due to type 2 diabetes mellitus Hypoxia YARELIS (obstructive sleep apnea) PAD (peripheral artery disease) Uncontrolled hypertension Surgical History S/P angiogram of extremity Family History Family History Father Alzheimer disease CAD (coronary artery disease) Social History Social History Household Members: Family Housing: House Do you presently have visiting nurse or other home services: No Alcohol intake: current Alcohol intake frequency: a few times a week Alcohol type: hard liquor Patient Tobacco Use Status: Current everyday Tobacco user Tobacco use type: Cigarette Cigarettes Per Day: 10 Years Smoked: 29 Smoked in Last 30 Days: Yes e-Cigarette/Vaping Use: Never Used Second Hand Smoke Exposure: No Use of substances other than those prescribed or required for medical reasons: Yes Substance Use Type: Marijuana Advance Directives: Yes Advance Directives on File: Yes Advance Directives Date on File: 06/21/21 service: No Current occupational status: disabled Physical Exam ED Vital Signs: Vital Signs - 24 hr 09/07/22 11:06 09/07/22 14:10 09/07/22 16:16 Temperature 97.9 F 98.0 F Pulse Rate 114 H 121 H 120 H Respiratory Rate 20 24 H 20 Blood Pressure 189/86 H 173/84 H 191/96 H Pulse Oximetry 100 100 100 Oxygen Delivery Method Nasal Cannula Nasal Cannula Nasal Cannula Oxygen Flow Rate 3 2 09/07/22 17:26 Temperature Pulse Rate 111 H Respiratory Rate 20 Blood Pressure 137/68 Pulse Oximetry 95 Oxygen Delivery Method Nasal Cannula Oxygen Flow Rate 2 BMI result Body Mass Index 21.6 Const Other: Appearance: Alert. Oriented X3. Ill appearing, looks uncomfortable Eyes: Pupils equal, round and reactive to light. ENT: Pharynx normal. Neck: Normal inspection. Neck supple. No lymph nodes noted. No crepitus CVS: Normal heart rate and rhythm. Pulses normal. Normal S1 and S2 Respiratory: No respiratory distress. Breath sounds normal. No Wheezing. No rales Abdomen: Soft, tenderness to palpation in epigastric area and diffuse pain as well, positive rebound in all quadrants, no guarding Skin: Skin warm and dry. Normal skin color. Normal skin turgor. Extremities: No lower extremity edema. No Lacerations. No Rash Neuro: Oriented X 3. No motor deficit. No sensory deficit. Moving all extremities. No slurred speech. CN 2 through 12 grossly intact Psych: calm, cooperative, very anxious Course Course Course Narrative: Patient seems to be vomiting coffee-ground emesis. The vomit will be sent for upper GI occult testing. Patient is receiving slow IV fluids, Protonix, octreotide, morphine. CT scan of the abdomen pending to rule out perforation Patient has vomitus is positive for occult blood. Patient's white blood cell count is 21.4, lactic acid was initially 6.1, down to 3.0. This is likely secondary to the GI bleed and hyperglycemia. Sepsis is not suspected. Urine is negative for UTI and chest x-rays negative for acute pulmonary process. Additionally, patient was given a GI cocktail, patient states that after the GI cocktail his abdominal symptoms nearly resolved Patient's blood pressure was elevated as well in the 190s, no headache, no visual changes, no chest pain or shortness of breath. Patient was given 1 dose of p.o. labetalol 100 mg, blood pressure now 137/68 Medications Administered Discontinued Medications Generic Name Dose Route Start Last Admin Trade Name Freq PRN Reason Stop Dose Admin Al Hydroxide/Mg Hydroxide 30 ml 09/07/22 16:12 09/07/22 16:18 Magnesium Hydrox/Alum Hydrox 30 Ml Oral.Susp PO 09/07/22 16:13 30 ml ONCE ONE Administration Sodium Chloride 1,000 mls @ 999 mls/hr 09/07/22 12:42 09/07/22 14:17 Ns IVCONT 09/07/22 13:42 Infused .Q1H1M ONE Infusion Sodium Chloride 1,000 mls @ 999 mls/hr 09/07/22 13:54 09/07/22 16:20 Ns IVCONT 09/07/22 14:54 Infused .Q1H1M ONE Infusion Sodium Chloride 1,000 mls @ 999 mls/hr 09/07/22 16:28 09/07/22 16:36 Ns IVCONT 09/07/22 17:28 999 mls/hr .Q1H1M ONE Administration Insulin Human Regular 10 unit 09/07/22 12:42 09/07/22 12:58 Insulin Regular, Human 100 Unit/Ml 3 Ml Vial IVPUSH 09/07/22 12:43 10 unit ONCE ONE Administration Iohexol 85 ml 09/07/22 13:13 09/07/22 13:13 Iohexol 350 Mg/Ml 100 Ml Infus..Btl IV 09/07/22 13:14 85 ml ONCE ONE Administration Labetalol HCl 100 mg 09/07/22 16:28 09/07/22 16:35 Labetalol Hcl 100 Mg Tablet PO 09/07/22 16:29 100 mg ONCE ONE Administration Protocol Lidocaine HCl 15 ml 09/07/22 16:12 09/07/22 16:18 Lidocaine Hcl Viscous 2 % 15 Ml Solution MUCOUS MEM 09/07/22 16:13 15 ml ONCE ONE Administration Morphine Sulfate 4 mg 09/07/22 12:21 09/07/22 12:35 Morphine Sulfate 4 Mg/Ml Cartridge IVPUSH 09/07/22 12:22 4 mg ONCE ONE Administration Protocol Octreotide Acetate 50 mcg 09/07/22 13:53 09/07/22 14:11 Octreotide Acetate 100 Mcg/Ml Ampul IVPUSH 09/07/22 13:54 50 mcg ONCE ONE Administration Pantoprazole Sodium 80 mg 09/07/22 12:21 09/07/22 12:35 Pantoprazole Sodium 40 Mg/10 Ml Vial IVPUSH 09/07/22 12:22 80 mg ONCE ONE Administration Medical Decision Making Lab Data Result diagrams: 09/07/22 11:29 09/07/22 14:37 Labs: Lab Results 09/07/22 09/07/22 09/07/22 Range/Units 11:29 11: 11:29 WBC 21.4 H (4.8-10.8) X10*3/uL RBC 4.43 L (4.60-5.80) X10*6/uL Hgb 11.5 L (14.0-18.0) g/dl Hct 36.7 L (42.0-52.0) % MCV 82.8 (80.0-98.0) fL MCH 26.0 L (27.0-33.0) pg MCHC 31.3 (31.0-36.0) g/dl RDW 16.3 H (11.0-16.0) % Plt Count 399 (160-400) X10*3/uL MPV 9.7 (9.4-12.4) fL Immature Gran % (Auto) 0.6 H (0.0-0.4) % Neut % (Auto) 92.7 H (45-73) % Lymph % (Auto) 3.4 L (20-40) % Brown % (Auto) 3.0 (2-11) % Eos % (Auto) 0.1 (0-4) % Baso % (Auto) 0.2 (0-2) % Lymph # (Auto) 0.7 L (1.2-4.9) X10*3/uL Brown # (Auto) 0.7 (0.1-1.2) X10*3/uL Eos # (Auto) 0.0 (0.0-0.4) X10*3/uL Baso # (Auto) 0.1 (0.0-0.2) X10*3/uL Abs Immat Gran (auto) 0.12 H (0.00-0.03) X10*3/uL Absolute Neuts (auto) 19.8 H (2.0-8.3) x10*3/uL Absolute Nucleated RBC 0.000 (0.0-0.012) X10*3/uL Nucleated RBC % (auto) 0.0 (0.0-0.2) /100WBC Smear Tech's Comments VERIFIED Sodium 144 (135-145) mmol/L Potassium 4.8 (3.3-5.1) mmol/L Chloride 105 (96-108) mmol/L Carbon Dioxide 17 L (22-29) mmol/L Anion Gap 27 H (12-20) BUN 20 H (9-16) mg/dL Creatinine 1.42 H (0.5-1.4) mg/dL Estim Creat Clear Calc 53.0 Estimated GFR 53 POC Glucose (60-115) mg/dL Random Glucose 424 H* (60-115) mg/dL Lactic Acid (0.5-2.0) mmol/L Lactic Acid F/U @ 2Hr (0.5-2.0) mmol/L Calcium 9.4 D (8.4-10.2) mg/dL Total Bilirubin 0.5 (0.0-1.0) mg/dL Direct Bilirubin 0.2 (0.0-0.5) mg/dL AST 20 (5-37) U/L ALT 29 (0-40) U/L Alkaline Phosphatase 139 H D (39-117) U/L Troponin I High Sens (<3.5-35.0) ng/L B-Natriuretic Peptide (<100) pg/mL Total Protein 7.8 (6.5-8.0) g/dL Albumin 4.4 D (3.5-5.0) g/dL Urine Color Yellow Urine Appearance Clear Urine pH 6.0 (5.0-9.0) Ur Specific [place] 1.020 (1.005-1.025) Urine Protein >=1000 (4+) H (Neg-Trace) mg/dL Urine Glucose (UA) >=1000 H (Negative) mg/dL Urine Ketones Trace (Negative) mg/dL Urine Blood Small (1+) H (Negative) Urine Nitrite Negative (Negative) Ur Leukocyte Esterase Negative (Negative) Urine RBC 3-5 H (0-2) /HPF Urine WBC 0-5 (0-5) /HPF Ur Squamous Epith Cells 0-2 (0-2) /HPF Urine Bacteria None Seen (None Seen) Hyaline Casts 0-2 (0-2) /LPF Gastric Occult Blood (NEG) Urine Opiates Screen (Not Detect) Urine Fentanyl Screen (Not Detect) Ur Barbiturates Screen (Not Detect) Ur Phencyclidine Scrn (Not Detect) Ur Amphetamines Screen (Not Detect) U Benzodiazepines Scrn (Not Detect) Urine Cocaine Screen (Not Detect) U Marijuana (THC) Screen (Not Detect) Ethyl Alcohol < 10 mg/dL Acetone, Qual Negative (Negative) COVID-19 (XANDER) (Negative) COVID-19 Clin Com 09/07/22 09/07/22 09/07/22 Range/Units 11:29 12:26 13:14 WBC (4.8-10.8) X10*3/uL RBC (4.60-5.80) X10*6/uL Hgb (14.0-18.0) g/dl Hct (42.0-52.0) % MCV (80.0-98.0) fL MCH (27.0-33.0) pg MCHC (31.0-36.0) g/dl RDW (11.0-16.0) % Plt Count (160-400) X10*3/uL MPV (9.4-12.4) fL Immature Gran % (Auto) (0.0-0.4) % Neut % (Auto) (45-73) % Lymph % (Auto) (20-40) % Brown % (Auto) (2-11) % Eos % (Auto) (0-4) % Baso % (Auto) (0-2) % Lymph # (Auto) (1.2-4.9) X10*3/uL Brown # (Auto) (0.1-1.2) X10*3/uL Eos # (Auto) (0.0-0.4) X10*3/uL Baso # (Auto) (0.0-0.2) X10*3/uL Abs Immat Gran (auto) (0.00-0.03) X10*3/uL Absolute Neuts (auto) (2.0-8.3) x10*3/uL Absolute Nucleated RBC (0.0-0.012) X10*3/uL Nucleated RBC % (auto) (0.0-0.2) /100WBC Smear Tech's Comments Sodium (135-145) mmol/L Potassium (3.3-5.1) mmol/L Chloride (96-108) mmol/L Carbon Dioxide (22-29) mmol/L Anion Gap (12-20) BUN (9-16) mg/dL Creatinine (0.5-1.4) mg/dL Estim Creat Clear Calc Estimated GFR POC Glucose (60-115) mg/dL Random Glucose (60-115) mg/dL Lactic Acid (0.5-2.0) mmol/L Lactic Acid F/U @ 2Hr (0.5-2.0) mmol/L Calcium (8.4-10.2) mg/dL Total Bilirubin (0.0-1.0) mg/dL Direct Bilirubin (0.0-0.5) mg/dL AST (5-37) U/L ALT (0-40) U/L Alkaline Phosphatase (39-117) U/L Troponin I High Sens 5.1 (<3.5-35.0) ng/L B-Natriuretic Peptide (<100) pg/mL Total Protein (6.5-8.0) g/dL Albumin (3.5-5.0) g/dL Urine Color Urine Appearance Urine pH (5.0-9.0) Ur Specific [place] (1.005-1.025) Urine Protein (Neg-Trace) mg/dL Urine Glucose (UA) (Negative) mg/dL Urine Ketones (Negative) mg/dL Urine Blood (Negative) Urine Nitrite (Negative) Ur Leukocyte Esterase (Negative) Urine RBC (0-2) /HPF Urine WBC (0-5) /HPF Ur Squamous Epith Cells (0-2) /HPF Urine Bacteria (None Seen) Hyaline Casts (0-2) /LPF Gastric Occult Blood POSITIVE (NEG) Urine Opiates Screen Not Detected (Not Detect) Urine Fentanyl Screen Not Detected (Not Detect) Ur Barbiturates Screen Not Detected (Not Detect) Ur Phencyclidine Scrn Not Detected (Not Detect) Ur Amphetamines Screen Not Detected (Not Detect) U Benzodiazepines Scrn Not Detected (Not Detect) Urine Cocaine Screen Not Detected (Not Detect) U Marijuana (THC) Screen Not Detected (Not Detect) Ethyl Alcohol mg/dL Acetone, Qual (Negative) COVID-19 (XANDER) (Negative) COVID-19 Clin Com 09/07/22 09/07/22 09/07/22 Range/Units 13:14 14:02 14:35 WBC (4.8-10.8) X10*3/uL RBC (4.60-5.80) X10*6/uL Hgb (14.0-18.0) g/dl Hct (42.0-52.0) % MCV (80.0-98.0) fL MCH (27.0-33.0) pg MCHC (31.0-36.0) g/dl RDW (11.0-16.0) % Plt Count (160-400) X10*3/uL MPV (9.4-12.4) fL Immature Gran % (Auto) (0.0-0.4) % Neut % (Auto) (45-73) % Lymph % (Auto) (20-40) % Brown % (Auto) (2-11) % Eos % (Auto) (0-4) % Baso % (Auto) (0-2) % Lymph # (Auto) (1.2-4.9) X10*3/uL Brown # (Auto) (0.1-1.2) X10*3/uL Eos # (Auto) (0.0-0.4) X10*3/uL Baso # (Auto) (0.0-0.2) X10*3/uL Abs Immat Gran (auto) (0.00-0.03) X10*3/uL Absolute Neuts (auto) (2.0-8.3) x10*3/uL Absolute Nucleated RBC (0.0-0.012) X10*3/uL Nucleated RBC % (auto) (0.0-0.2) /100WBC Smear Tech's Comments Sodium (135-145) mmol/L Potassium (3.3-5.1) mmol/L Chloride (96-108) mmol/L Carbon Dioxide (22-29) mmol/L Anion Gap (12-20) BUN (9-16) mg/dL Creatinine (0.5-1.4) mg/dL Estim Creat Clear Calc Estimated GFR POC Glucose 77 (60-115) mg/dL Random Glucose (60-115) mg/dL Lactic Acid (0.5-2.0) mmol/L Lactic Acid F/U @ 2Hr (0.5-2.0) mmol/L Calcium (8.4-10.2) mg/dL Total Bilirubin (0.0-1.0) mg/dL Direct Bilirubin (0.0-0.5) mg/dL AST (5-37) U/L ALT (0-40) U/L Alkaline Phosphatase (39-117) U/L Troponin I High Sens (<3.5-35.0) ng/L B-Natriuretic Peptide 128 H (<100) pg/mL Total Protein (6.5-8.0) g/dL Albumin (3.5-5.0) g/dL Urine Color Urine Appearance Urine pH (5.0-9.0) Ur Specific [place] (1.005-1.025) Urine Protein (Neg-Trace) mg/dL Urine Glucose (UA) (Negative) mg/dL Urine Ketones (Negative) mg/dL Urine Blood (Negative) Urine Nitrite (Negative) Ur Leukocyte Esterase (Negative) Urine RBC (0-2) /HPF Urine WBC (0-5) /HPF Ur Squamous Epith Cells (0-2) /HPF Urine Bacteria (None Seen) Hyaline Casts (0-2) /LPF Gastric Occult Blood (NEG) Urine Opiates Screen (Not Detect) Urine Fentanyl Screen (Not Detect) Ur Barbiturates Screen (Not Detect) Ur Phencyclidine Scrn (Not Detect) Ur Amphetamines Screen (Not Detect) U Benzodiazepines Scrn (Not Detect) Urine Cocaine Screen (Not Detect) U Marijuana (THC) Screen (Not Detect) Ethyl Alcohol mg/dL Acetone, Qual (Negative) COVID-19 (XANDER) Negative (Negative) COVID-19 Clin Com See Note 09/07/22 09/07/22 09/07/22 Range/Units 14:37 14:37 15:22 WBC (4.8-10.8) X10*3/uL RBC (4.60-5.80) X10*6/uL Hgb (14.0-18.0) g/dl Hct (42.0-52.0) % MCV (80.0-98.0) fL MCH (27.0-33.0) pg MCHC (31.0-36.0) g/dl RDW (11.0-16.0) % Plt Count (160-400) X10*3/uL MPV (9.4-12.4) fL Immature Gran % (Auto) (0.0-0.4) % Neut % (Auto) (45-73) % Lymph % (Auto) (20-40) % Brown % (Auto) (2-11) % Eos % (Auto) (0-4) % Baso % (Auto) (0-2) % Lymph # (Auto) (1.2-4.9) X10*3/uL Brown # (Auto) (0.1-1.2) X10*3/uL Eos # (Auto) (0.0-0.4) X10*3/uL Baso # (Auto) (0.0-0.2) X10*3/uL Abs Immat Gran (auto) (0.00-0.03) X10*3/uL Absolute Neuts (auto) (2.0-8.3) x10*3/uL Absolute Nucleated RBC (0.0-0.012) X10*3/uL Nucleated RBC % (auto) (0.0-0.2) /100WBC Smear Tech's Comments Sodium 145 (135-145) mmol/L Potassium 4.1 (3.3-5.1) mmol/L Chloride 111 H (96-108) mmol/L Carbon Dioxide 14 L (22-29) mmol/L Anion Gap 24 H (12-20) BUN 19 H (9-16) mg/dL Creatinine 0.99 (0.5-1.4) mg/dL Estim Creat Clear Calc 76.1 Estimated GFR > 60 POC Glucose 77 (60-115) mg/dL Random Glucose 54 L* (60-115) mg/dL Lactic Acid 6.1 H* (0.5-2.0) mmol/L Lactic Acid F/U @ 2Hr (0.5-2.0) mmol/L Calcium 8.5 D (8.4-10.2) mg/dL Total Bilirubin (0.0-1.0) mg/dL Direct Bilirubin (0.0-0.5) mg/dL AST (5-37) U/L ALT (0-40) U/L Alkaline Phosphatase (39-117) U/L Troponin I High Sens (<3.5-35.0) ng/L B-Natriuretic Peptide (<100) pg/mL Total Protein (6.5-8.0) g/dL Albumin (3.5-5.0) g/dL Urine Color Urine Appearance Urine pH (5.0-9.0) Ur Specific [place] (1.005-1.025) Urine Protein (Neg-Trace) mg/dL Urine Glucose (UA) (Negative) mg/dL Urine Ketones (Negative) mg/dL Urine Blood (Negative) Urine Nitrite (Negative) Ur Leukocyte Esterase (Negative) Urine RBC (0-2) /HPF Urine WBC (0-5) /HPF Ur Squamous Epith Cells (0-2) /HPF Urine Bacteria (None Seen) Hyaline Casts (0-2) /LPF Gastric Occult Blood (NEG) Urine Opiates Screen (Not Detect) Urine Fentanyl Screen (Not Detect) Ur Barbiturates Screen (Not Detect) Ur Phencyclidine Scrn (Not Detect) Ur Amphetamines Screen (Not Detect) U Benzodiazepines Scrn (Not Detect) Urine Cocaine Screen (Not Detect) U Marijuana (THC) Screen (Not Detect) Ethyl Alcohol mg/dL Acetone, Qual (Negative) COVID-19 (XANDER) (Negative) COVID-19 Clin Com 09/07/22 Range/Units 16:47 WBC (4.8-10.8) X10*3/uL RBC (4.60-5.80) X10*6/uL Hgb (14.0-18.0) g/dl Hct (42.0-52.0) % MCV (80.0-98.0) fL MCH (27.0-33.0) pg MCHC (31.0-36.0) g/dl RDW (11.0-16.0) % Plt Count (160-400) X10*3/uL MPV (9.4-12.4) fL Immature Gran % (Auto) (0.0-0.4) % Neut % (Auto) (45-73) % Lymph % (Auto) (20-40) % Brown % (Auto) (2-11) % Eos % (Auto) (0-4) % Baso % (Auto) (0-2) % Lymph # (Auto) (1.2-4.9) X10*3/uL Brown # (Auto) (0.1-1.2) X10*3/uL Eos # (Auto) (0.0-0.4) X10*3/uL Baso # (Auto) (0.0-0.2) X10*3/uL Abs Immat Gran (auto) (0.00-0.03) X10*3/uL Absolute Neuts (auto) (2.0-8.3) x10*3/uL Absolute Nucleated RBC (0.0-0.012) X10*3/uL Nucleated RBC % (auto) (0.0-0.2) /100WBC Smear Tech's Comments Sodium (135-145) mmol/L Potassium (3.3-5.1) mmol/L Chloride (96-108) mmol/L Carbon Dioxide (22-29) mmol/L Anion Gap (12-20) BUN (9-16) mg/dL Creatinine (0.5-1.4) mg/dL Estim Creat Clear Calc Estimated GFR POC Glucose (60-115) mg/dL Random Glucose (60-115) mg/dL Lactic Acid (0.5-2.0) mmol/L Lactic Acid F/U @ 2Hr 3.0 H* (0.5-2.0) mmol/L Calcium (8.4-10.2) mg/dL Total Bilirubin (0.0-1.0) mg/dL Direct Bilirubin (0.0-0.5) mg/dL AST (5-37) U/L ALT (0-40) U/L Alkaline Phosphatase (39-117) U/L Troponin I High Sens (<3.5-35.0) ng/L B-Natriuretic Peptide (<100) pg/mL Total Protein (6.5-8.0) g/dL Albumin (3.5-5.0) g/dL Urine Color Urine Appearance Urine pH (5.0-9.0) Ur Specific [place] (1.005-1.025) Urine Protein (Neg-Trace) mg/dL Urine Glucose (UA) (Negative) mg/dL Urine Ketones (Negative) mg/dL Urine Blood (Negative) Urine Nitrite (Negative) Ur Leukocyte Esterase (Negative) Urine RBC (0-2) /HPF Urine WBC (0-5) /HPF Ur Squamous Epith Cells (0-2) /HPF Urine Bacteria (None Seen) Hyaline Casts (0-2) /LPF Gastric Occult Blood (NEG) Urine Opiates Screen (Not Detect) Urine Fentanyl Screen (Not Detect) Ur Barbiturates Screen (Not Detect) Ur Phencyclidine Scrn (Not Detect) Ur Amphetamines Screen (Not Detect) U Benzodiazepines Scrn (Not Detect) Urine Cocaine Screen (Not Detect) U Marijuana (THC) Screen (Not Detect) Ethyl Alcohol mg/dL Acetone, Qual (Negative) COVID-19 (XANDER) (Negative) COVID-19 Clin Com Imaging Data Chest x-ray: Radiologist's impression: FINDINGS: Previously seen bilateral airspace opacities have resolved. Lungs and pleural spaces are clear. Normal pulmonary vascularity. Normal heart size. Regional skeleton intact. XR/XR chest 1V IMPRESSION: No acute pulmonary disease. CT scan of the abdomen: Radiologist's impression: DLP: 372 mGy-cm FINDINGS: LUNG BASES: The visualized lung bases are unremarkable.? LIVER, GALLBLADDER, AND BILIARY TREE: Unremarkable. PANCREAS: Unremarkable.? SPLEEN: Unremarkable.? ADRENAL GLANDS: Mild bilateral nodular hypertrophy without significant change. KIDNEYS AND URETERS: The kidneys are normal in size, shape, and attenuation. No hydronephrosis, hydroureter, or calculi seen. No perinephric stranding. ? BLADDER: Unremarkable.? GASTROINTESTINAL TRACT: The stomach, small bowel and appendix are unremarkable. The colon and rectum are unremarkable.? ABDOMINAL WALL: No significant hernia is appreciated.? LYMPH NODES: No lymphadenopathy. VASCULAR: Moderate to severe atherosclerosis in the infrarenal abdominal aorta and common iliac arteries without dilatation. PELVIC VISCERA: Unremarkable.? OSSEOUS STRUCTURES: Unremarkable.? CT/CT abdomen pelvis w IV con IMPRESSION: 1.? No acute intra-abdominal/pelvic abnormality to explain the patient's pain. No evidence for acute ulcer or perforation. 2.? Mild bilateral nodular hypertrophy of the adrenal glands without significant change. This is nonspecific, but can be seen with adrenal hyperplasia. Critical Care Time Critical Care Time Critical Care Time: Yes Total Critical Care Time: 90 Attestation: I have personally provided critical care time. Time includes review of lab data, radiology results, discussion with consultants, and monitoring for potential decompensation. Intervention performed as documented. Discharge Plan Discharge Clinical Impression: Acute upper GI bleed, KELVIN (acute kidney injury), Hypertension, Hyperglycemia Patient Disposition: Admitted As Inpatient Prescriptions: No Action hydralazine 50 mg Tablet 50 mg PO TID Qty: 90 0RF Protocol: Hold for SBP< HOLD for SBP < : 90 Anoro Ellipta 62.5-25 mcg/actuation Blister With Device 1 inh INHALATION DAILY atorvastatin 40 mg tablet 1 tab PO DAILY trazodone 50 mg tablet 50 mg PO BEDTIME metoprolol succinate 100 mg tablet extended release 24 hr 1 tab PO DAILY omeprazole 40 mg capsule,delayed release(DR/EC) 1 cap PO DAILY aspirin 81 mg tablet,delayed release (DR/EC) 1 tab PO DAILY gabapentin 300 mg capsule 1 cap PO TID insulin lispro 100 unit/mL solution See Rx Instructions .ROUTE .COMPLEX Rx Instructions: insulin pump; use up to 100 units daily albuterol sulfate 90 mcg/actuation HFA aerosol inhaler 2 puff INHALATION Q6H lisinopril 40 mg tablet 1 tab PO DAILY escitalopram oxalate 10 mg tablet 10 mg PO DAILY ipratropium-albuterol 0.5 mg-3 mg(2.5 mg base)/3 mL Solution For Nebulization 3 ml inhalation Q8H 30 Days Qty: 180 1RF amlodipine 10 mg Tablet 10 mg PO DAILY 30 Days Qty: 30 0RF Protocol: Hold for SBP< HOLD for SBP < : 90 nicotine 21 mg/24 hr Patch 24 Hour 21 mg transdermal DAILY 30 Days Qty: 28 5RF ferrous sulfate 324 mg (65 mg iron) Tablet,Delayed Release (Dr/Ec) 324 mg PO DAILY 30 Days Qty: 30 0RF furosemide 40 mg Tablet 40 mg PO DAILY Qty: 30 0RF Protocol: Hold for SBP< HOLD for SBP < : 90 nicotine (polacrilex) 2 mg Gum 2 mg buccal Q1H PRN (Reason: nicotini cravingz) Qty: 100 5RF magnesium oxide 400 mg (241.3 mg magnesium) Tablet 400 mg PO BIDPC Qty: 60 0RF
[2022-09-07] MEDS: Morphine Sulfate 4 MG/ML CARTRIDGE IVPUSH (12:35)
[2022-09-07] MEDS: Pantoprazole Sodium 40 MG/10 ML VIAL 80 MG IVPUSH (12:35)
[2022-09-07 12:46] LABS: GASOB Int Neg Ctl Valid YES; GASOB Int Pos Ctl Valid YES; Occult Blood Gastric POSITIVE (NEG)
[2022-09-07] MEDS: Insulin Regular, Human 100 UNIT/ML 3 ML VIAL 10 UNIT IVPUSH (12:58)
[2022-09-07] MEDS: 0.9 % Sodium Chloride 1,000 ML 999 ML IVCONT ×3 (12:59→16:36)
[2022-09-07 13:06] LABS: Ethanol < 10 mg/dL
[2022-09-07] MEDS: iohexoL 350 MG/ML 100 ML INFUS..BTL 85 ML IV (13:13)
[2022-09-07 13:54] LABS: Troponin-I High Sensitivity 5.1 ng/L (<3.5-35.0)
[2022-09-07 13:55] LABS: B Type Natriuretic Peptide 128 pg/mL (<100)
[2022-09-07 14:06] LABS: Glucose, Whole Blood 77 mg/dL (60-115)
[2022-09-07 14:10] VITALS: BP 173/84; PULSE 121; RESP 24; O2SAT 100
[2022-09-07] MEDS: Octreotide Acetate 100 MCG/ML AMPUL 50 MCG IVPUSH (14:11)
[2022-09-07 15:00] LABS: COVID-19 Test Negative (Negative)
[2022-09-07 15:02] LABS: Blood Urea Nitrogen 19 mg/dL (9-16); Calcium 8.5 mg/dL (8.4-10.2); Creatinine Clr Calc Pharmacy 76.1; Estimated Glomerular Filt Rate > 60; Glucose Random 54 mg/dL (60-115)
[2022-09-07 15:03] LABS: Lactic Acid 6.1 mmol/L (0.5-2.0)
[2022-09-07 15:11] LABS: Anion Gap 24 (12-20); Carbon Dioxide 14 mmol/L (22-29); Chloride 111 mmol/L (96-108); Potassium 4.1 mmol/L (3.3-5.1); Sodium 145 mmol/L (135-145)
--- NOTE | 2022-09-07 15:13 | PHA.MEDREC ---
Pharmacy Consult ? Medication Reconciliation Pharmacy has completed the medication reconciliation. spoke with pt. he uses an insulin pump but is not sure of his details.
[2022-09-07 15:25] LABS: Glucose, Whole Blood 77 mg/dL (60-115)
[2022-09-07 15:39] LABS: Acetone, serum QL Negative (Negative)
[2022-09-07 16:16] VITALS: BP 191/96; PULSE 120; RESP 20; TEMP 36.7; O2SAT 100
[2022-09-07] MEDS: Lidocaine HCl Viscous 2 % 15 ML SOLUTION MUCOUS MEM (16:18)
[2022-09-07] MEDS: Magnesium Hydrox/Alum Hydrox 30 ML ORAL.SUSP PO (16:18)
[2022-09-07] MEDS: Labetalol HCL 100 MG TABLET PO (16:35)
[2022-09-07 16:41] LABS: Reflex Lactate? Lactic Acid Added
[2022-09-07 17:26] VITALS: BP 137/68; PULSE 111; RESP 20; O2SAT 95
--- NOTE | 2022-09-07 18:06 | P.HPHOSP_ITS ---
History of Present Illness Date of Service: 09/07/22 Chief Complaint: abd pain, sob 47yo M with COPD on 2L O2 at home, YARELIS, HFpEF, DM2, and CKD3?with recent admission for CHF and HCAP presented with sob, chest pain, abd pain, and coffee ground emesis. patient reports symptoms began AM of admission. similar to prev ious episodes he had in past. work up previously has been unremarkable, although he has never had endocsocpy. patient drinks about 750ml vodka every 2 days. his last drink was day prior to presentation. labs signifcant for lactic acisosis, hyper and hypoglycemia, kelvin. Review of Systems Review of Systems: Constitutional: Denies fever, denies Chills Eyes: denies blurry vision ENT: denies sore throat CVS: chest pain Respiratory: dyspnea GI: abdominal pain : denies dysuria MSK: denies neck pain Skin: denies rash Neuro: denies specific motor weakness Psych: denies suicidal ideation Endocrine: denies heat/cold intolerance Hematologic: denies easy bleeding Allergy: denies hives [facility] Medical History Acute on chronic anemia Acute on chronic diastolic (congestive) heart failure Acute respiratory failure KELVIN (acute kidney injury) Anxiety Asthma CHF exacerbation Congestive heart failure Diabetes HLD (hyperlipidemia) HTN (hypertension) Hypercholesteremia Hyperglycemia due to type 2 diabetes mellitus Hypoxia YARELIS (obstructive sleep apnea) PAD (peripheral artery disease) Uncontrolled hypertension Family History Father Alzheimer disease CAD (coronary artery disease) Surgical History S/P angiogram of extremity Social History Household Members: Family Housing: House Do you presently have visiting nurse or other home services: No Alcohol intake: current Alcohol intake frequency: a few times a week Alcohol type: hard liquor Patient Tobacco Use Status: Current everyday Tobacco user Tobacco use type: Cigarette Cigarettes Per Day: 10 Years Smoked: 29 Smoked in Last 30 Days: Yes e-Cigarette/Vaping Use: Never Used Second Hand Smoke Exposure: No Use of substances other than those prescribed or required for medical reasons: Yes Substance Use Type: Marijuana Advance Directives: Yes Advance Directives on File: Yes Advance Directives Date on File: 06/21/21 service: No Current occupational status: disabled Meds Allergies Allergy/AdvReac Type Severity Reaction Status Date / Time [facility] Allergy Unknown Verified 01/02/22 21:08 metformin [METFORMIN] AdvReac Mild DIARRHEA, Verified 09/22/20 13:18 nausea and vomiting Active Medications: Current Medications Albuterol Sulfate (Albuterol Sulfate 90 Mcg 8 Gm Inhaler) 2 puff INHALE Q6H [facility] Albuterol/Ipratropium (Albuterol/Iprat 2.5/0.5mg 3 Ml Ampul.Neb) 3 ml INHALE Q8H [facility] Amlodipine Besylate (Amlodipine Besylate 10 Mg Tablet) 10 mg PO DAILY [facility]; Protocol Atorvastatin Calcium (Atorvastatin Calcium 40 Mg Tablet) 40 mg PO DAILY [facility] Dextrose (Dextrose 50 % 25 Gm/50 Ml Syringe) 25 gm IVPUSH Q15M PRN; Protocol PRN Reason: per Hypoglycemia Standing Ord. Escitalopram Oxalate (Escitalopram Oxalate 10 Mg Tablet) 10 mg PO DAILY [facility] Gabapentin (Gabapentin 300 Mg Capsule) 300 mg PO TID [facility] Glucose (Glucose Gel 15 Gm Gel..Gram.) 15 gm PO Q15M PRN; Protocol PRN Reason: per Hypoglycemia Standing Ord. Hydralazine HCl (Hydralazine Hcl 50 Mg Tablet) 50 mg PO TID [facility]; Protocol Insulin Human Lispro (Insulin Lispro 100 Unit/Ml 3 Ml Vial) 0 unit SUBCUT QIDACHS [facility]; Protocol Lisinopril (Lisinopril 40 Mg Tablet) 40 mg PO DAILY [facility]; Protocol Magnesium Oxide (Magnesium Oxide 400 Mg Tablet) [facility] Metoprolol Succinate (Metoprolol Succinate Er 100 Mg Tab.Er.24h) 100 mg PO DAILY [facility]; Protocol Nicotine (Nicotine 21 Mg Patch.Td24) 21 mg TRANSDERMA DAILY [facility] Nicotine Polacrilex (Nicotine Polacrilex 2 Mg Gum) 2 mg BUCCAL Q1H PRN PRN Reason: nicotini cravingz Pantoprazole Sodium (Pantoprazole Sodium 40 Mg/10 Ml Vial) 40 mg IVPUSH BID@0630,1630 [facility] Pharmacy Consult (Consult Rx Perform Med Rec) 1 each MISCELLANE ONCE PRN PRN Reason: Consult order Pharmacy Consult (Consult Rx Etoh Phenob Po Only) 1 each MISCELLANE ONCE PRN; Protocol PRN Reason: Consult order Trazodone HCl (Trazodone Hcl 50 Mg Tablet) 50 mg PO BEDTIME [facility] Home Medications Medication Instructions Recorded Confirmed Last Taken Type albuterol sulfate 90 mcg/actuation 2 puff inhalation Q6H 08/01/22 09/07/22 Unknown History aerosol inhaler aspirin 81 mg tablet,delayed 1 tab PO DAILY 08/01/22 09/07/22 Unknown History release atorvastatin 40 mg tablet 1 tab PO DAILY 08/01/22 09/07/22 Unknown History escitalopram oxalate 10 mg tablet 10 mg PO DAILY 08/01/22 09/07/22 Unknown History gabapentin 300 mg capsule 1 cap PO TID 08/01/22 09/07/22 Unknown History insulin lispro 100 unit/mL See Rx Instructions .Route .COMPLEX 08/01/22 09/07/22 Unknown History subcutaneous solution lisinopril 40 mg tablet 1 tab PO DAILY 08/01/22 09/07/22 Unknown History metoprolol succinate 100 mg 1 tab PO DAILY 08/01/22 09/07/22 Unknown History tablet,extended release 24 hr omeprazole 40 mg capsule,delayed 1 cap PO DAILY 08/01/22 09/07/22 Unknown Hist ory release trazodone 50 mg tablet 50 mg PO BEDTIME 08/01/22 09/07/22 Unknown History umeclidinium 62.5 mcg-vilanterol 1 inh inhalation DAILY 09/07/22 09/07/22 Unknown History 25 mcg/actuation powdr for inhalation (Anoro Ellipta) Physical Exam Vital Signs and Narrative: Vital Signs: Last Vital Signs Temp 98.0 F 09/07/22 16:16 Pulse 111 H 09/07/22 17:26 Resp 20 09/07/22 17:26 BP 137/68 09/07/22 17:26 Pulse Ox 95 09/07/22 17:26 O2 Del Method 09/07/22 17:26 O2 Flow Rate 2 09/07/22 17:26 Oxygen Flow Rate 3 09/07/22 11:06 BMI result Body Mass Index 21.6 General: diaphorteic, in pain HEENT: atraumatic Neck: normal to visual inspection CVS: S1, S2, Rapid, regular Resp: CTA bilateral Chest: non tender GI: soft, non tender, non distended : no CVA tenderness Skin: no rashes Extremities: no edema Neuro: Oriented X3, grossly intact Psych: cooperative Results Labs CBC and Chem 7: 09/07/22 11:29 09/07/22 14:37 Labs: Laboratory Results - last 24 hr 09/07/22 09/07/22 09/07/22 11:29 11:29 11:29 MCV 82.8 MCH 26.0 L MCHC 31.3 RDW 16.3 H Plt Count 399 MPV 9.7 Immature Gran % (Auto) 0.6 H Neut % (Auto) 92.7 H Lymph % (Auto) 3.4 L [place] % (Auto) 3.0 Eos % (Auto) 0.1 Baso % (Auto) 0.2 Lymph # (Auto) 0.7 L [place] # (Auto) 0.7 Eos # (Auto) 0.0 Baso # (Auto) 0.1 Abs Immat Gran (auto) 0.12 H Absolute Neuts (auto) 19.8 H Absolute Nucleated RBC 0.000 Nucleated RBC % (auto) 0.0 Smear Tech's Comments VERIFIED Anion Gap 27 H Estim Creat Clear Calc 53.0 Estimated GFR 53 POC Glucose Random Glucose 424 H* Lactic Acid Lactic Acid F/U @ 2Hr Calcium 9.4 D Total Bilirubin 0.5 Direct Bilirubin 0.2 AST 20 ALT 29 Alkaline Phosphatase 139 H D Troponin I High Sens B-Natriuretic Peptide Total Protein 7.8 Albumin 4.4 D Urine Color Yellow Urine Appearance Clear Urine pH 6.0 Ur Specific [place] 1.020 Urine Protein >=1000 (4+) H Urine Glucose (UA) >=1000 H Urine Ketones Trace Urine Blood Small (1+) H Urine Nitrite Negative Ur Leukocyte Esterase Negative Urine RBC 3-5 H Urine WBC 0-5 Ur Squamous Epith Cells 0-2 Urine Bacteria None Seen Hyaline Casts 0-2 Gastric Occult Blood Urine Opiates Screen Urine Fentanyl Screen Ur Barbiturates Screen Ur Phencyclidine Scrn Ur Amphetamines Screen U Benzodiazepines Scrn Urine Cocaine Screen U Marijuana (THC) Screen Ethyl Alcohol < 10 Acetone, Qual Negative COVID-19 ([facility]) COVID-19 Clin Com 09/07/22 09/07/22 09/07/22 11:29 12:26 13:14 MCV MCH MCHC RDW Plt Count MPV Immature Gran % (Auto) Neut % (Auto) Lymph % (Auto) [place] % (Auto) Eos % (Auto) Baso % (Auto) Lymph # (Auto) [place] # (Auto) Eos # (Auto) Baso # (Auto) Abs Immat Gran (auto) Absolute Neuts (auto) Absolute Nucleated RBC Nucleated RBC % (auto) Smear Tech's Comments Anion Gap Estim Creat Clear Calc Estimated GFR POC Glucose Random Glucose Lactic Acid Lactic Acid F/U @ 2Hr Calcium Total Bilirubin Direct Bilirubin AST ALT Alkaline Phosphatase Troponin I High Sens 5.1 B-Natriuretic Peptide Total Protein Albumin Urine Color Urine Appearance Urine pH Ur Specific [place] Urine Protein Urine Glucose (UA) Urine Ketones Urine Blood Urine Nitrite Ur Leukocyte Esterase Urine RBC Urine WBC Ur Squamous Epith Cells Urine Bacteria Hyaline Casts Gastric Occult Blood POSITIVE Urine Opiates Screen Not Detected Urine Fentanyl Screen Not Detected Ur Barbiturates Screen Not Detected Ur Phencyclidine Scrn Not Detected Ur Amphetamines Screen Not Detected U Benzodiazepines Scrn Not Detected Urine Cocaine Screen Not Detected U Marijuana (THC) Screen Not Detected Ethyl Alcohol Acetone, Qual COVID-19 ([facility]ER) COVID-[employer] 09/07/22 09/07/22 09/07/22 13:14 14:02 14:35 MCV MCH MCHC RDW Plt Count MPV Immature Gran % (Auto) Neut % (Auto) Lymph % (Auto) [place] % (Auto) Eos % (Auto) Baso % (Auto) Lymph # (Auto) [place] # (Auto) Eos # (Auto) Baso # (Auto) Abs Immat Gran (auto) Absolute Neuts (auto) Absolute Nucleated RBC Nucleated RBC % (auto) Smear Tech's Comments Anion Gap Estim Creat Clear Calc Estimated GFR POC Glucose 77 Random Glucose Lactic Acid Lactic Acid F/U @ 2Hr Calcium Total Bilirubin Direct Bilirubin AST ALT Alkaline Phosphatase Troponin I High Sens B-Natriuretic Peptide 128 H Total Protein Albumin Urine Color Urine Appearance Urine pH Ur Specific [place] Urine Protein Urine Glucose (UA) Urine Ketones Urine Blood Urine Nitrite Ur Leukocyte Esterase Urine RBC Urine WBC Ur Squamous Epith Cells Urine Bacteria Hyaline Casts Gastric Occult Blood Urine Opiates Screen Urine Fentanyl Screen Ur Barbiturates Screen Ur Phencyclidine Scrn Ur Amphetamines Screen U Benzodiazepines Scrn Urine Cocaine Screen U Marijuana (THC) Screen Ethyl Alcohol Acetone, Qual COVID-19 ([facility]ER) Negative COVID-[employer] See Note 09/07/22 09/07/22 09/07/22 14:37 14:37 15:22 MCV MCH MCHC RDW Plt Count MPV Immature Gran % (Auto) Neut % (Auto) Lymph % (Auto) [place] % (Auto) Eos % (Auto) Baso % (Auto) Lymph # (Auto) [place] # (Auto) Eos # (Auto) Baso # (Auto) Abs Immat Gran (auto) Absolute Neuts (auto) Absolute Nucleated RBC Nucleated RBC % (auto) Smear Tech's Comments Anion Gap 24 H Estim Creat Clear Calc 76.1 Estimated GFR > 60 POC Glucose 77 Random Glucose 54 L* Lactic Acid 6.1 H* Lactic Acid F/U @ 2Hr Calcium 8.5 D Total Bilirubin Direct Bilirubin AST ALT Alkaline Phosphatase Troponin I High Sens B-Natriuretic Peptide Total Protein Albumin Urine Color Urine Appearance Urine pH Ur Specific [place] Urine Protein Urine Glucose (UA) Urine Ketones Urine Blood Urine Nitrite Ur Leukocyte Esterase Urine RBC Urine WBC Ur Squamous Epith Cells Urine Bacteria Hyaline Casts Gastric Occult Blood Urine Opiates Screen Urine Fentanyl Screen Ur Barbiturates Screen Ur Phencyclidine Scrn Ur Amphetamines Screen U Benzodiazepines Scrn Urine Cocaine Screen U Marijuana (THC) Screen Ethyl Alcohol Acetone, Qual COVID-19 ([facility]) COVID-19 [employer] Com 09/07/22 16:47 MCV MCH MCHC RDW Plt Count MPV Immature Gran % (Auto) Neut % (Auto) Lymph % (Auto) [place] % (Auto) Eos % (Auto) Baso % (Auto) Lymph # (Auto) [place] # (Auto) Eos # (Auto) Baso # (Auto) Abs Immat Gran (auto) Absolute Neuts (auto) Absolute Nucleated RBC Nucleated RBC % (auto) Smear Tech's Comments Anion Gap Estim Creat Clear Calc Estimated GFR POC Glucose Random Glucose Lactic Acid Lactic Acid F/U @ 2Hr 3.0 H* Calcium Total Bilirubin Direct Bilirubin AST ALT Alkaline Phosphatase Troponin I High Sens B-Natriuretic Peptide Total Protein Albumin Urine Color Urine Appearance Urine pH Ur Specific [place] Urine Protein Urine Glucose (UA) Urine Ketones Urine Blood Urine Nitrite Ur Leukocyte Esterase Urine RBC Urine WBC Ur Squamous Epith Cells Urine Bacteria Hyaline Casts Gastric Occult Blood Urine Opiates Screen Urine Fentanyl Screen Ur Barbiturates Screen Ur Phencyclidine Scrn Ur Amphetamines Screen U Benzodiazepines Scrn Urine Cocaine Screen U Marijuana (THC) Screen Ethyl Alcohol Acetone, Qual COVID-19 ([facility]ER) COVID-19 Clin Com Imaging Radiologist's Impressions: Impressions Abdomen/Pelvis CT 09/07/22 13:13 IMPRESSION: 1. No acute intra-abdominal/pelvic abnormality to explain the patient's pain. No evidence for acute ulcer or perforation. 2. Mild bilateral nodular hypertrophy of the adrenal glands without significant change. This is nonspecific, but can be seen with adrenal hyperplasia. Chest X-Ray 09/07/22 14:28 IMPRESSION: No acute pulmonary disease. Assessment and Plan (1) Acute upper GI bleed: Status: Acute Plan 47yo M with COPD on 2L O2 at home, YARELIS, HFpEF, DM2, and CKD3?with recent admission for CHF and HCAP presented with sob, chest pain, abd pain, and coffee ground emesis. labs signifcant for lactic acisosis, hyper and hypoglycemia, kelvin. coffee ground emesis ppi, monitor h and h, gi eval hold asa chest pain ?hypertensive, trop negative, ekg non ischemic bp control abd pain ct abd unremarkable chronic hypoxic resp failure due to copd stable, cxr much improved from previous DM2 with hyperglycmeia and hypoglycemia insulin, monitor closely etoh dependence with withdrawal phenobarb, ciwa hfpef patient clincially dry, received iv hydration, mnoitor closely, holding lasix kelvin resolved lactic acidossis not due to sepsis dvt prophylaxis - mechanical due to bleed full code patient with multiple acute issues such as gi bleed, lactic acidosis, etoh withdrawal, at risk for decompenstaiton due to DM, chronic hyopxia, therefore, expected to require atleast 2 midnights inpatient. Quality Stroke Does the patient have a stroke diagnosis?: No VTE Prior VTE?: No VTE Risk Level:: Medical - moderate - high VTE Device Contraindication: N/A - Device Ordered VTE Drug Contraindication: Treatment Not Tolerated
[2022-09-07 18:51] LABS: Reflex Lactate? 2 Y
[2022-09-07] MEDS: PHENobarbitaL sodium 130 MG/ML IM ONCE 236 MG IM (19:16)
[2022-09-07 19:21] VITALS: BP 156/80; PULSE 111; RESP 25; TEMP 36.8; O2SAT 83
[2022-09-07 19:31] LABS: Glucose, Whole Blood 321 mg/dL (60-115)
[2022-09-07 19:36] LABS: ~Lactic Acid-LAB USE ONLY 3.4 mmol/L (0.5-2.0)
--- NOTE | 2022-09-07 20:02 | PC.NURSE ---
Addendum entered by Jojo Booth 09/07/22 20:30: Pt has audible crackles on his left lower lobe. Original Note: Pt V/S were elevated, he was sinus Tachy on the monitor, his o2 was 80% when nurse arrived on 3L NC. Nurse increase the o2 to 6L NC and the Oxy mask and O2 increase to 90 %. Repeat Lacic acid was 3.4. Nurse notified Hospitalist. will continue to monitor.
[2022-09-07] MEDS: Gabapentin 300 MG CAPSULE PO (21:15)
[2022-09-07] MEDS: Insulin Lispro 100 UNIT/ML 3 ML VIAL SUBCUT (21:16)
[2022-09-07] MEDS: hydrALAZINE HCl 50 MG TABLET PO (21:16)
[2022-09-07] MEDS: traZODone HCL 50 MG TABLET PO (21:16)
[2022-09-07 21:56] LABS: Glucose, Whole Blood 305 mg/dL (60-115)
[2022-09-07] MEDS: PHENobarbitaL sodium 130 MG/ML VIAL IM Q3Hx2 176 MG IM (22:55)
[2022-09-08] VITALS (15 sets, daily range): BP systolic 130–176; BP diastolic 63–93; PULSE 73–115; RESP 10–25; TEMP 36.6–37.1; O2SAT 83–100
--- NOTE | 2022-09-08 00:04 | PC.NURSE ---
PT assisted with changing out fo street clothes and into hospital gown and hospital pants. Pt assisted with repositioning in bed. Pt given warm blanket and call harper placed in reach.
[2022-09-08] MEDS: 0.9 % Sodium Chloride Flush 3 ML SYRINGE IVFLUSH ×3 (00:56→17:24)
[2022-09-08] MEDS: Acetaminophen 1,000 MG/100 ML PIGGYBACK 400 MG IV (01:07)
[2022-09-08] MEDS: PHENobarbitaL sodium 130 MG/ML VIAL IM Q3Hx2 176 MG IM (01:08)
[2022-09-08] MEDS: Pantoprazole Sodium 40 MG/10 ML VIAL IVPUSH ×2 (06:01→17:23)
[2022-09-08] MEDS: Albuterol Sulfate 90 MCG 8 GM INHALER 2 PUFF INHALE (06:06)
[2022-09-08 06:12] LABS: Glucose, Whole Blood 134 mg/dL (60-115)
[2022-09-08 06:41] LABS: Hemoglobin 9.5 g/dl (14.0-18.0); Mean Corpuscular HGB Conc 31.7 g/dl (31.0-36.0); Mean Corpuscular Hemoglobin 26.1 pg (27.0-33.0); Mean Corpuscular Volume 82.4 fL (80.0-98.0); Mean Platelet Volume 10.2 fL (9.4-12.4); Platelet Count 296 X10*3/uL (160-400); Red Blood Count 3.64 X10*6/uL (4.60-5.80); Red Cell Distribution Width 16.4 % (11.0-16.0); White Blood Count 13.2 X10*3/uL (4.8-10.8)
[2022-09-08 06:54] LABS: Prothrombin Time 11.3 SEC (10.0-13.1)
[2022-09-08 07:05] LABS: Anion Gap 15 (12-20); Blood Urea Nitrogen 14 mg/dL (9-16); Calcium 7.9 mg/dL (8.4-10.2); Carbon Dioxide 20 mmol/L (22-29); Chloride 114 mmol/L (96-108); Creatinine Clr Calc Pharmacy 78.4; Estimated Glomerular Filt Rate > 60; Glucose Fasting 148 mg/dL (60-99); Magnesium 1.5 mg/dL (1.6-2.6); Potassium 4.2 mmol/L (3.3-5.1); Sodium 145 mmol/L (135-145)
[2022-09-08 07:20] LABS: Glucose, Whole Blood 153 mg/dL (60-115)
--- NOTE | 2022-09-08 09:00 | PC.NURSE ---
pt sleeping but easily arousable, skin pwd, respirations even and unlabored, ls clear, pt reports having chest tightness when he takes a deep breath or moves around pain at 8/10, pt also reports having some nausea. sinus tach on the monitor 115-110
[2022-09-08] MEDS: PHENobarbitaL 15 MG TABLET 45 MG PO ×2 (09:01→20:20)
[2022-09-08] MEDS: Metoprolol Succinate ER 100 MG TAB.ER.24H PO (09:01)
[2022-09-08] MEDS: Escitalopram Oxalate 10 MG TABLET PO (09:02)
[2022-09-08] MEDS: Magnesium Oxide 400 MG TABLET PO ×2 (09:02→17:23)
[2022-09-08] MEDS: Atorvastatin Calcium 40 MG TABLET PO (09:02)
[2022-09-08] MEDS: lisinopriL 40 MG TABLET PO (09:02)
[2022-09-08] MEDS: hydrALAZINE HCl 50 MG TABLET PO ×3 (09:02→20:20)
[2022-09-08] MEDS: Gabapentin 300 MG CAPSULE PO ×3 (09:02→20:20)
[2022-09-08] MEDS: amLODIPine Besylate 10 MG TABLET PO (09:02)
[2022-09-08] MEDS: Nicotine 21 MG PATCH.TD24 TRANSDERMA (09:03)
--- NOTE | 2022-09-08 11:07 | MHC.CM.PN ---
Attempted to meet with patient in regards to discharge planning. Patient currently sleeping. No family present. Patient is well known to case management. Case management assessment completed using medical record. Patient is active with [facility] and has oxygen at home. HCP verified to be on file. Patient received 2 Moderna vaccines and 1 Pfizer vaccine. Patient drinks alcohol daily. No additional services anticipated to be needed at d/c. Continue to monitor for d/c needs.
--- NOTE | 2022-09-08 11:20 | P.PNIM_ITS ---
Subjective Subjective Date of Service: 09/08/22 Interval History: cc: n/v abd pain interval history: still with abd pain Cardiovascular Cardiovascular: Reports no additional cardiovascular complaints Gastrointestinal Gastrointestinal: Reports no additional gastrointestinal complaints Physical Exam Vital Signs: Vital Signs: Last Vital Signs Temp 98.7 F 09/08/22 03:55 Pulse 110 H 09/08/22 09:00 Resp 18 09/08/22 09:00 BP 143/70 H 09/08/22 09:00 Pulse Ox 95 09/08/22 09:00 O2 Del Method 09/08/22 09:00 O2 Flow Rate 3 09/08/22 03:55 Oxygen Flow Rate 3 09/07/22 11:06 BMI result Body Mass Index 21.6 General: AO X 3, in pain Resp: CTA bilateral, no accessory muscles used CVS: S1,S2,RRR GI: soft, non tender, non distended Neuro: motor grossly intact, alert Psych: appropriate affect, appropriate insight Objective Data Active Medications Albuterol/Ipratropium (Albuterol/Iprat 2.5/0.5mg 3 Ml Ampul.Neb) 3 ml INHALE RTID PRN PRN Reason: sob Amlodipine Besylate (Amlodipine Besylate 10 Mg Tablet) 10 mg PO DAILY [facility]; Protocol Last Admin: 09/08/22 09:02 Dose: 10 mg Documented By: LIZ Atorvastatin Calcium (Atorvastatin Calcium 40 Mg Tablet) 40 mg PO DAILY [facility] Last Admin: 09/08/22 09:02 Dose: 40 mg Documented By: LIZ Dextrose (Dextrose 50 % 25 Gm/50 Ml Syringe) 25 gm IVPUSH Q15M PRN; Protocol PRN Reason: per Hypoglycemia Standing Ord. Escitalopram Oxalate (Escitalopram Oxalate 10 Mg Tablet) 10 mg PO DAILY [facility] Last Admin: 09/08/22 09:02 Dose: 10 mg Documented By: LIZ Gabapentin (Gabapentin 300 Mg Capsule) 300 mg PO TID [facility] Last Admin: 09/08/22 09:02 Dose: 300 mg Documented By: LIZ Glucose (Glucose Gel 15 Gm Gel..Gram.) 15 gm PO Q15M PRN; Protocol PRN Reason: per Hypoglycemia Standing Ord. Hydralazine HCl (Hydralazine Hcl 50 Mg Tablet) 50 mg PO TID [facility]; Protocol Last Admin: 09/08/22 09:02 Dose: 50 mg Documented By: LIZ Magnesium Sulfate (Magnesium Sulfate/H2o) 2 gm in 50 mls @ 25 mls/hr IV ONCE ONE Stop: 09/08/22 13:18 Insulin Human Lispro (Insulin Lispro 100 Unit/Ml 3 Ml Vial) 0 unit SUBCUT QIDACHS [facility]; Protocol Last Admin: 09/08/22 06:36 Dose: Not Given Documented By: DEEPIKA Non-Admin Reason: No Insulin Coverage Lisinopril (Lisinopril 40 Mg Tablet) 40 mg PO DAILY [facility]; Protocol Last Admin: 09/08/22 09:02 Dose: 40 mg Documented By: LIZ Magnesium Oxide (Magnesium Oxide 400 Mg Tablet) 400 mg PO BIDPC [facility] Last Admin: 09/08/22 09:02 Dose: 400 mg Documented By: LIZ Metoprolol Succinate (Metoprolol Succinate Er 100 Mg Tab.Er.24h) 100 mg PO DAILY [facility]; Protocol Last Admin: 09/08/22 09:01 Dose: 100 mg Documented By: LIZ Nicotine (Nicotine 21 Mg Patch.Td24) 21 mg TRANSDERMA DAILY [facility] Last Admin: 09/08/22 09:03 Dose: 21 mg Documented By: LIZ Nicotine Polacrilex (Nicotine Polacrilex 2 Mg Gum) 2 mg BUCCAL Q1H PRN PRN Reason: nicotini cravingz Pantoprazole Sodium (Pantoprazole Sodium 40 Mg/10 Ml Vial) 40 mg IVPUSH BID@0630,1630 [facility] Last Admin: 09/08/22 06:01 Dose: 40 mg Documented By: DEEPIKA Pharmacy Consult (Consult Rx Perform Med Rec) 1 each MISCELLANE ONCE PRN PRN Reason: Consult order Pharmacy Consult (Consult Rx Etoh Phenob Po Only) 1 each MISCELLANE ONCE PRN; Protocol PRN Reason: Consult order Phenobarbital (Phenobarbital 15 Mg Tablet) 45 mg PO BID [facility] Stop: 09/09/22 21:01 Last Admin: 09/08/22 09:01 Dose: 45 mg Documented By: LIZ Phenobarbital (Phenobarbital 30 Mg Tablet) 30 mg PO BID [facility] Stop: 09/11/22 21:01 Phenobarbital (Phenobarbital 15 Mg Tablet) 15 mg PO DAILY [facility] Stop: 09/13/22 09:01 Sodium Chloride (0.9 % Sodium Chloride Flush 3 Ml Syringe) 3 ml IVFLUSH QSHIFT [facility] Last Admin: 09/08/22 09:02 Dose: 3 ml Documented By: LIZ Trazodone HCl (Trazodone Hcl 50 Mg Tablet) 50 mg PO BEDTIME [facility] Last Admin: 09/07/22 21:16 Dose: 50 mg Documented By: DEEPIKA Labs CBC & Chem 7: 09/08/22 06:26 09/08/22 06:26 Labs: Laboratory Results - last 24 hr 09/07/22 09/07/22 09/07/22 11:29 11:29 11:29 MCV 82.8 MCH 26.0 L MCHC 31.3 RDW 16.3 H Plt Count 399 MPV 9.7 Immature Gran % (Auto) 0.6 H Neut % (Auto) 92.7 H Lymph % (Auto) 3.4 L Saline % (Auto) 3.0 Eos % (Auto) 0.1 Baso % (Auto) 0.2 Lymph # (Auto) 0.7 L Saline # (Auto) 0.7 Eos # (Auto) 0.0 Baso # (Auto) 0.1 Abs Immat Gran (auto) 0.12 H Absolute Neuts (auto) 19.8 H Absolute Nucleated RBC 0.000 Nucleated RBC % (auto) 0.0 Smear Tech's Comments VERIFIED PT INR Anion Gap 27 H Estim Creat Clear Calc 53.0 Estimated GFR 53 POC Glucose Random Glucose 424 H* Fasting Glucose Lactic Acid Lactic Acid F/U @ 2Hr Lactic Acid F/U @ 4Hr Calcium 9.4 D Magnesium Total Bilirubin 0.5 Direct Bilirubin 0.2 AST 20 ALT 29 Alkaline Phosphatase 139 H D Troponin I High Sens B-Natriuretic Peptide Total Protein 7.8 Albumin 4.4 D Urine Color Yellow Urine Appearance Clear Urine pH 6.0 Ur Specific [place] 1.020 Urine Protein >=1000 (4+) H Urine Glucose (UA) >=1000 H Urine Ketones Trace Urine Blood Small (1+) H Urine Nitrite Negative Ur Leukocyte Esterase Negative Urine RBC 3-5 H Urine WBC 0-5 Ur Squamous Epith Cells 0-2 Urine Bacteria None Seen Hyaline Casts 0-2 Gastric Occult Blood Urine Opiates Screen Urine Fentanyl Screen Ur Barbiturates Screen Ur Phencyclidine Scrn Ur Amphetamines Screen U Benzodiazepines Scrn Urine Cocaine Screen U Marijuana (THC) Screen Ethyl Alcohol < 10 Acetone, Qual Negative COVID-19 ([facility]) COVID-19 Clin Com 09/07/22 09/07/22 09/07/22 11:29 12:26 13:14 MCV MCH MCHC RDW Plt Count MPV Immature Gran % (Auto) Neut % (Auto) Lymph % (Auto) Saline % (Auto) Eos % (Auto) Baso % (Auto) Lymph # (Auto) Saline # (Auto) Eos # (Auto) Baso # (Auto) Abs Immat Gran (auto) Absolute Neuts (auto) Absolute Nucleated RBC Nucleated RBC % (auto) Smear Tech's Comments PT INR Anion Gap Estim Creat Clear Calc Estimated GFR POC Glucose Random Glucose Fasting Glucose Lactic Acid Lactic Acid F/U @ 2Hr Lactic Acid F/U @ 4Hr Calcium Magnesium Total Bilirubin Direct Bilirubin AST ALT Alkaline Phosphatase Troponin I High Sens 5.1 B-Natriuretic Peptide Total Protein Albumin Urine Color Urine Appearance Urine pH Ur Specific [place] Urine Protein Urine Glucose (UA) Urine Ketones Urine Blood Urine Nitrite Ur Leukocyte Esterase Urine RBC Urine WBC Ur Squamous Epith Cells Urine Bacteria Hyaline Casts Gastric Occult Blood POSITIVE Urine Opiates Screen Not Detected Urine Fentanyl Screen Not Detected Ur Barbiturates Screen Not Detected Ur Phencyclidine Scrn Not Detected Ur Amphetamines Screen Not Detected U Benzodiazepines Scrn Not Detected Urine Cocaine Screen Not Detected U Marijuana (THC) Screen Not Detected Ethyl Alcohol Acetone, Qual COVID-19 ([facility]) COVID-19 Clin Com 09/07/22 09/07/22 09/07/22 13:14 14:02 14:35 MCV MCH MCHC RDW Plt Count MPV Immature Gran % (Auto) Neut % (Auto) Lymph % (Auto) Saline % (Auto) Eos % (Auto) Baso % (Auto) Lymph # (Auto) Saline # (Auto) Eos # (Auto) Baso # (Auto) Abs Immat Gran (auto) Absolute Neuts (auto) Absolute Nucleated RBC Nucleated RBC % (auto) Smear Tech's Comments PT INR Anion Gap Estim Creat Clear Calc Estimated GFR POC Glucose 77 Random Glucose Fasting Glucose Lactic Acid Lactic Acid F/U @ 2Hr Lactic Acid F/U @ 4Hr Calcium Magnesium Total Bilirubin Direct Bilirubin AST ALT Alkaline Phosphatase Troponin I High Sens B-Natriuretic Peptide 128 H Total Protein Albumin Urine Color Urine Appearance Urine pH Ur Specific [place] Urine Protein Urine Glucose (UA) Urine Ketones Urine Blood Urine Nitrite Ur Leukocyte Esterase Urine RBC Urine WBC Ur Squamous Epith Cells Urine Bacteria Hyaline Casts Gastric Occult Blood Urine Opiates Screen Urine Fentanyl Screen Ur Barbiturates Screen Ur Phencyclidine Scrn Ur Amphetamines Screen U Benzodiazepines Scrn Urine Cocaine Screen U Marijuana (THC) Screen Ethyl Alcohol Acetone, Qual COVID-19 ([facility]) Negative COVID-19 Clin Com See Note 09/07/22 09/07/22 09/07/22 14:37 14:37 15:22 MCV MCH MCHC RDW Plt Count MPV Immature Gran % (Auto) Neut % (Auto) Lymph % (Auto) Saline % (Auto) Eos % (Auto) Baso % (Auto) Lymph # (Auto) Saline # (Auto) Eos # (Auto) Baso # (Auto) Abs Immat Gran (auto) Absolute Neuts (auto) Absolute Nucleated RBC Nucleated RBC % (auto) Smear Tech's Comments PT INR Anion Gap 24 H Estim Creat Clear Calc 76.1 Estimated GFR > 60 POC Glucose 77 Random Glucose 54 L* Fasting Glucose Lactic Acid 6.1 H* Lactic Acid F/U @ 2Hr Lactic Acid F/U @ 4Hr Calcium 8.5 D Magnesium Total Bilirubin Direct Bilirubin AST ALT Alkaline Phosphatase Troponin I High Sens B-Natriuretic Peptide Total Protein Albumin Urine Color Urine Appearance Urine pH Ur Specific [place] Urine Protein Urine Glucose (UA) Urine Ketones Urine Blood Urine Nitrite Ur Leukocyte Esterase Urine RBC Urine WBC Ur Squamous Epith Cells Urine Bacteria Hyaline Casts Gastric Occult Blood Urine Opiates Screen Urine Fentanyl Screen Ur Barbiturates Screen Ur Phencyclidine Scrn Ur Amphetamines Screen U Benzodiazepines Scrn Urine Cocaine Screen U Marijuana (THC) Screen Ethyl Alcohol Acetone, Qual COVID-19 ([facility]) COVID-19 Clin Com 09/07/22 09/07/22 09/07/22 16:47 19:07 19:27 MCV MCH MCHC RDW Plt Count MPV Immature Gran % (Auto) Neut % (Auto) Lymph % (Auto) Saline % (Auto) Eos % (Auto) Baso % (Auto) Lymph # (Auto) Saline # (Auto) Eos # (Auto) Baso # (Auto) Abs Immat Gran (auto) Absolute Neuts (auto) Absolute Nucleated RBC Nucleated RBC % (auto) Smear Tech's Comments PT INR Anion Gap Estim Creat Clear Calc Estimated GFR POC Glucose 321 H Random Glucose Fasting Glucose Lactic Acid Lactic Acid F/U @ 2Hr 3.0 H* Lactic Acid F/U @ 4Hr 3.4 H* Calcium Magnesium Total Bilirubin Direct Bilirubin AST ALT Alkaline Phosphatase Troponin I High Sens B-Natriuretic Peptide Total Protein Albumin Urine Color Urine Appearance Urine pH Ur Specific [place] Urine Protein Urine Glucose (UA) Urine Ketones Urine Blood Urine Nitrite Ur Leukocyte Esterase Urine RBC Urine WBC Ur Squamous Epith Cells Urine Bacteria Hyaline Casts Gastric Occult Blood Urine Opiates Screen Urine Fentanyl Screen Ur Barbiturates Screen Ur Phencyclidine Scrn Ur Amphetamines Screen U Benzodiazepines Scrn Urine Cocaine Screen U Marijuana (THC) Screen Ethyl Alcohol Acetone, Qual COVID-19 ([facility]) COVID-19 [employer] 09/07/22 09/08/22 09/08/22 21:51 06:09 06:26 MCV 82.4 MCH 26.1 L MCHC 31.7 RDW 16.4 H Plt Count 296 D MPV 10.2 Immature Gran % (Auto) Neut % (Auto) Lymph % (Auto) Saline % (Auto) Eos % (Auto) Baso % (Auto) Lymph # (Auto) Saline # (Auto) Eos # (Auto) Baso # (Auto) Abs Immat Gran (auto) Absolute Neuts (auto) Absolute Nucleated RBC 0.000 Nucleated RBC % (auto) 0.0 Smear Tech's Comments PT INR Anion Gap Estim Creat Clear Calc Estimated GFR POC Glucose 305 H 134 H Random Glucose Fasting Glucose Lactic Acid Lactic Acid F/U @ 2Hr Lactic Acid F/U @ 4Hr Calcium Magnesium Total Bilirubin Direct Bilirubin AST ALT Alkaline Phosphatase Troponin I High Sens B-Natriuretic Peptide Total Protein Albumin Urine Color Urine Appearance Urine pH Ur Specific [place] Urine Protein Urine Glucose (UA) Urine Ketones Urine Blood Urine Nitrite Ur Leukocyte Esterase Urine RBC Urine WBC Ur Squamous Epith Cells Urine Bacteria Hyaline Casts Gastric Occult Blood Urine Opiates Screen Urine Fentanyl Screen Ur Barbiturates Screen Ur Phencyclidine Scrn Ur Amphetamines Screen U Benzodiazepines Scrn Urine Cocaine Screen U Marijuana (THC) Screen Ethyl Alcohol Acetone, Qual COVID-19 ([facility]) COVID-[employer] 09/08/22 09/08/22 09/08/22 06:26 06:26 07:17 MCV MCH MCHC RDW Plt Count MPV Immature Gran % (Auto) Neut % (Auto) Lymph % (Auto) Saline % (Auto) Eos % (Auto) Baso % (Auto) Lymph # (Auto) Saline # (Auto) Eos # (Auto) Baso # (Auto) Abs Immat Gran (auto) Absolute Neuts (auto) Absolute Nucleated RBC Nucleated RBC % (auto) Smear Tech's Comments PT 11.3 INR 1.0 Anion Gap 15 Estim Creat Clear Calc 78.4 Estimated GFR > 60 POC Glucose 153 H Random Glucose Fasting Glucose 148 H Lactic Acid Lactic Acid F/U @ 2Hr Lactic Acid F/U @ 4Hr Calcium 7.9 L D Magnesium 1.5 L Total Bilirubin Direct Bilirubin AST ALT Alkaline Phosphatase Troponin I High Sens B-Natriuretic Peptide Total Protein Albumin Urine Color Urine Appearance Urine pH Ur Specific [place] Urine Protein Urine Glucose (UA) Urine Ketones Urine Blood Urine Nitrite Ur Leukocyte Esterase Urine RBC Urine WBC Ur Squamous Epith Cells Urine Bacteria Hyaline Casts Gastric Occult Blood Urine Opiates Screen Urine Fentanyl Screen Ur Barbiturates Screen Ur Phencyclidine Scrn Ur Amphetamines Screen U Benzodiazepines Scrn Urine Cocaine Screen U Marijuana (THC) Screen Ethyl Alcohol Acetone, Qual COVID-19 ([facility]) COVID-19 Clin Com Assessment and Plan (1) Acute upper GI bleed: Status: Acute Plan 47yo M with COPD on 2L O2 at home, YARELIS, HFpEF, DM2, and CKD3?with recent admission for CHF and HCAP presented with sob, chest pain, abd pain, and coffee ground emesis.? labs signifcant for lactic acisosis, hyper and hypoglycemia, delma. coffee ground emesis ppi, monitor h and h, follow up GI holding asa chest pain ?hypertensive, trop negative, ekg non ischemic bp control abd pain ct abd unremarkable chronic hypoxic resp failure due to copd stable, cxr much improved from previous DM2 with hyperglycmeia and hypoglycemia insulin, monitor closely etoh dependence with withdrawal phenobarb, ciwa hfpef patient clincially dry, received iv hydration, monitor closely, holding lasix delma resolved lactic acidossis not due to sepsis dvt prophylaxis - mechanical due to bleed full code reason for continued hospitalization:awaiting gi eval, still with pain Quality Stroke Does the patient have a stroke diagnosis?: No VTE Prior VTE?: No VTE Risk Level:: Medical - moderate - high VTE Device Contraindication: N/A - Device Ordered VTE Drug Contraindication: Treatment Not Tolerated
[2022-09-08] MEDS: Magnesium Sulfate/H2O 2 GM/50 ML PIGGYBACK IV (11:31)
[2022-09-08] MEDS: Morphine Sulfate 2 MG/ML CARTRIDGE IVPUSH ×2 (12:12→20:39)
--- NOTE | 2022-09-08 12:45 | PC.NURSE ---
pt put on oxygen at 2l via nasal cannual because after the morphine when pt is sleeping oxygen dropped to 85%
--- NOTE | 2022-09-08 13:20 | PM.EVENT ---
Event Note Date of Service: 09/08/22 Event Note: GI Consult-Full note dictated-Hx via patient and EMR Imp:47 yo male with multiple medical issues presenting with coffee grounds emesis and odynophagia. He has a hx of EtOH use and intermittent steroid use for his pulmonary disease. He had an EGD in 2019 with the finding of esophageal candidiasis, esophagitis, and gastritis. Diff dx: Esophagitis-infectious and/or acid reflux-associated, PUD, gastritis Rec: Keep NPO. Continue IV PPI, F/U Hgb, EGD. Full consent obtained for this, including risks of bleeding and perforation. Thanks
--- NOTE | 2022-09-08 13:26 | MHC.SHP ---
Pre-Procedural Eval Section A Date of Service: 09/08/22 The patient is an INPATIENT: Yes The History & Physical has been completed within 30 days and I have reviewed it.: Yes Section B Chief Complaint: Hematemesis,chest pain,etoh Allergies: Allergies Allergy/AdvReac Type Severity Reaction Status Date / Time dulaglutide [From Trulicity] Allergy Unknown Verified 01/02/22 21:08 metformin [METFORMIN] AdvReac Mild DIARRHEA, Verified 09/22/20 13:18 nausea and vomiting Plan I have reviewed the history and physical and performed a pertinent physical examination on my patient. No changes have occurred unless specified.
[2022-09-08 13:31] LABS: Glucose, Whole Blood 170 mg/dL (60-115)
--- NOTE | 2022-09-08 16:27 | PC.NURSE ---
report given to antonio andrade in overflow
--- NOTE | 2022-09-08 17:04 | P.CONAN_ITS ---
[facility] Active Problems Active Problems: All Active Problems (Updated 09/07/22 @ 17:49 by Theresa Emmanuel MD) Acute upper GI bleed (Acute) KELVIN (acute kidney injury) (Acute) Hypertension (Acute) Hyperglycemia (Acute) Hypomagnesemia (Acute) Acute on chronic kidney failure (Acute) Acute and chronic respiratory failure with hypoxia (Acute) COPD exacerbation (Acute) YARELIS (obstructive sleep apnea) (Acute) Acute on chronic heart failure with preserved ejection fraction (HFpEF) (Acute) Acute kidney injury (Acute) PAD (peripheral artery disease) (Acute) Past Medical History Medical History Acute on chronic anemia Acute on chronic diastolic (congestive) heart failure Acute respiratory failure KELVIN (acute kidney injury) Anxiety Asthma CHF exacerbation Congestive heart failure Diabetes HLD (hyperlipidemia) HTN (hypertension) Hypercholesteremia Hyperglycemia due to type 2 diabetes mellitus Hypoxia YARELIS (obstructive sleep apnea) PAD (peripheral artery disease) Uncontrolled hypertension Functional capacity: independent ambulation Family History Family History Father Alzheimer disease CAD (coronary artery disease) Family history of problems with anesthesia: No Surgical History Surgical History S/P angiogram of extremity History of Problems with Anesthesia: No Social History Social History Household Members: Family Housing: House Do you presently have visiting nurse or other home services: No Alcohol intake: current Alcohol intake frequency: a few times a week Alcohol type: hard liquor Patient Tobacco Use Status: Current everyday Tobacco user Tobacco use type: Cigarette Cigarettes Per Day: 10 Years Smoked: 29 Smoked in Last 30 Days: Yes e-Cigarette/Vaping Use: Never Used Second Hand Smoke Exposure: No Use of substances other than those prescribed or required for medical reasons: Yes Substance Use Type: Marijuana Advance Directives: Yes Advance Directives on File: Yes Advance Directives Date on File: 06/21/21 service: No Current occupational status: disabled Meds Allergies Allergy/AdvReac Type Severity Reaction Status Date / Time dulaglutide [From Trulicity] Allergy Unknown Verified 01/02/22 21:08 metformin [METFORMIN] AdvReac Mild DIARRHEA, Verified 09/22/20 13:18 nausea and vomiting Active Medications: Current Medications Albuterol/Ipratropium (Albuterol/Iprat 2.5/0.5mg 3 Ml Ampul.Neb) 3 ml INHALE RTID PRN PRN Reason: sob Amlodipine Besylate (Amlodipine Besylate 10 Mg Tablet) 10 mg PO DAILY [facility]; Protocol Last Admin: 09/08/22 09:02 Dose: 10 mg Atorvastatin Calcium (Atorvastatin Calcium 40 Mg Tablet) 40 mg PO DAILY [facility] Last Admin: 09/08/22 09:02 Dose: 40 mg Dextrose (Dextrose 50 % 25 Gm/50 Ml Syringe) 25 gm IVPUSH Q15M PRN; Protocol PRN Reason: per Hypoglycemia Standing Ord. Escitalopram Oxalate (Escitalopram Oxalate 10 Mg Tablet) 10 mg PO DAILY [facility] Last Admin: 09/08/22 09:02 Dose: 10 mg Gabapentin (Gabapentin 300 Mg Capsule) 300 mg PO TID [facility] Last Admin: 09/08/22 09:02 Dose: 300 mg Glucose (Glucose Gel 15 Gm Gel..Gram.) 15 gm PO Q15M PRN; Protocol PRN Reason: per Hypoglycemia Standing Ord. Hydralazine HCl (Hydralazine Hcl 50 Mg Tablet) 50 mg PO TID [facility]; Protocol Last Admin: 09/08/22 09:02 Dose: 50 mg Insulin Human Lispro (Insulin Lispro 100 Unit/Ml 3 Ml Vial) 0 unit SUBCUT QIDACHS [facility]; Protocol Last Admin: 09/08/22 13:35 Dose: Not Given Lisinopril (Lisinopril 40 Mg Tablet) 40 mg PO DAILY [facility]; Protocol Last Admin: 09/08/22 09:02 Dose: 40 mg Magnesium Oxide (Magnesium Oxide 400 Mg Tablet) 400 mg PO BIDPC [facility] Last Admin: 09/08/22 09:02 Dose: 400 mg Metoprolol Succinate (Metoprolol Succinate Er 100 Mg Tab.Er.24h) 100 mg PO DAILY [facility]; Protocol Last Admin: 09/08/22 09:01 Dose: 100 mg Morphine Sulfate (Morphine Sulfate 2 Mg/Ml Cartridge) 2 mg IVPUSH Q4H PRN; Protocol PRN Reason: moderate pain Last Admin: 09/08/22 12:12 Dose: 2 mg Nicotine (Nicotine 21 Mg Patch.Td24) 21 mg TRANSDERMA DAILY [facility] Last Admin: 09/08/22 09:03 Dose: 21 mg Nicotine Polacrilex (Nicotine Polacrilex 2 Mg Gum) 2 mg BUCCAL Q1H PRN PRN Reason: nicotini cravingz Pantoprazole Sodium (Pantoprazole Sodium 40 Mg/10 Ml Vial) 40 mg IVPUSH BID@0630,1630 [facility] Last Admin: 09/08/22 06:01 Dose: 40 mg Pharmacy Consult (Consult Rx Perform Med Rec) 1 each MISCELLANE ONCE PRN PRN Reason: Consult order Pharmacy Consult (Consult Rx Etoh Phenob Po Only) 1 each MISCELLANE ONCE PRN; Protocol PRN Reason: Consult order Phenobarbital (Phenobarbital 15 Mg Tablet) 45 mg PO BID [facility] Stop: 09/09/22 21:01 Last Admin: 09/08/22 09:01 Dose: 45 mg Phenobarbital (Phenobarbital 30 Mg Tablet) 30 mg PO BID [facility] Stop: 09/11/22 21:01 Phenobarbital (Phenobarbital 15 Mg Tablet) 15 mg PO DAILY [facility] Stop: 09/13/22 09:01 Sodium Chloride (0.9 % Sodium Chloride Flush 3 Ml Syringe) 3 ml IVFLUSH QSHIFT [facility] Last Admin: 09/08/22 09:02 Dose: 3 ml Trazodone HCl (Trazodone Hcl 50 Mg Tablet) 50 mg PO BEDTIME [facility] Last Admin: 09/07/22 21:16 Dose: 50 mg Home Medications Medication Instructions Recorded Confirmed Last Taken Type albuterol sulfate 90 mcg/actuation 2 puff inhalation Q6H 08/01/22 09/07/22 Unknown History aerosol inhaler aspirin 81 mg tablet,delayed 1 tab PO DAILY 08/01/22 09/07/22 Unknown History release atorvastatin 40 mg tablet 1 tab PO DAILY 08/01/22 09/07/22 Unknown History escitalopram oxalate 10 mg tablet 10 mg PO DAILY 08/01/22 09/07/22 Unknown History gabapentin 300 mg capsule 1 cap PO TID 08/01/22 09/07/22 Unknown History insulin lispro 100 unit/mL See Rx Instructions .Route .COMPLEX 08/01/22 09/07/22 Unknown History subcutaneous solution lisinopril 40 mg tablet 1 tab PO DAILY 08/01/22 09/07/22 Unknown History metoprolol succinate 100 mg 1 tab PO DAILY 08/01/22 09/07/22 Unknown History tablet,extended release 24 hr omeprazole 40 mg capsule,delayed 1 cap PO DAILY 08/01/22 09/07/22 Unknown History release trazodone 50 mg tablet 50 mg PO BEDTIME 08/01/22 09/07/22 Unknown History umeclidinium 62.5 mcg-vilanterol 1 inh inhalation DAILY 09/07/22 09/07/22 Unknown History 25 mcg/actuation powdr for inhalation (Anoro Ellipta) Exam Exam Date and Time: September 08, 2022 1704 Height,Weight and Vital Signs: Height 5 ft 5 in Weight 58.967 kg Last Vital Signs Temp 97.8 F 09/08/22 14:26 Pulse 84 09/08/22 14:26 Resp 25 H 09/08/22 14:26 BP 146/63 H 09/08/22 14:26 Pulse Ox 96 09/08/22 14:26 O2 Del Method 09/08/22 14:26 O2 Flow Rate 3 09/08/22 03:55 Oxygen Flow Rate 3 09/07/22 11:06 Pertinent Lab Results Pertinent Lab Results: Laboratory Tests 09/07/22 09/07/22 09/07/22 11:29 11:29 11:29 WBC 21.4 H RBC 4.43 L Hgb 11.5 L Hct 36.7 L MCV 82.8 MCH 26.0 L MCHC 31.3 RDW 16.3 H Plt Count 399 MPV 9.7 Immature Gran % (Auto) 0.6 H Neut % (Auto) 92.7 H Lymph % (Auto) 3.4 L [place] % (Auto) 3.0 Eos % (Auto) 0.1 Baso % (Auto) 0.2 Lymph # (Auto) 0.7 L [place] # (Auto) 0.7 Eos # (Auto) 0.0 Baso # (Auto) 0.1 Abs Immat Gran (auto) 0.12 H Absolute Neuts (auto) 19.8 H Absolute Nucleated RBC 0.000 Nucleated RBC % (auto) 0.0 Smear Tech's Comments VERIFIED PT INR Sodium 144 Potassium 4.8 Chloride 105 Carbon Dioxide 17 L Anion Gap 27 H BUN 20 H Creatinine 1.42 H Estim Creat Clear Calc 53.0 Estimated GFR 53 POC Glucose Random Glucose 424 H* Fasting Glucose Lactic Acid Lactic Acid F/U @ 2Hr Lactic Acid F/U @ 4Hr Calcium 9.4 D Magnesium Total Bilirubin 0.5 Direct Bilirubin 0.2 AST 20 ALT 29 Alkaline Phosphatase 139 H D Troponin I High Sens B-Natriuretic Peptide Total Protein 7.8 Albumin 4.4 D Urine Color Yellow Urine Appearance Clear Urine pH 6.0 Ur Specific Alloy 1.020 Urine Protein >=1000 (4+) H Urine Glucose (UA) >=1000 H Urine Ketones Trace Urine Blood Small (1+) H Urine Nitrite Negative Ur Leukocyte Esterase Negative Urine RBC 3-5 H Urine WBC 0-5 Ur Squamous Epith Cells 0-2 Urine Bacteria None Seen Hyaline Casts 0-2 Gastric Occult Blood Urine Opiates Screen Urine Fentanyl Screen Ur Barbiturates Screen Ur Phencyclidine Scrn Ur Amphetamines Screen U Benzodiazepines Scrn Urine Cocaine Screen U Marijuana (THC) Screen Ethyl Alcohol < 10 Acetone, Qual Negative COVID-19 (XANDER) COVID-19 Smartesting 09/07/22 09/07/22 09/07/22 11:29 12:26 13:14 WBC RBC Hgb Hct MCV MCH MCHC RDW Plt Count MPV Immature Gran % (Auto) Neut % (Auto) Lymph % (Auto) [place] % (Auto) Eos % (Auto) Baso % (Auto) Lymph # (Auto) [place] # (Auto) Eos # (Auto) Baso # (Auto) Abs Immat Gran (auto) Absolute Neuts (auto) Absolute Nucleated RBC Nucleated RBC % (auto) Smear Tech's Comments PT INR Sodium Potassium Chloride Carbon Dioxide Anion Gap BUN Creatinine Estim Creat Clear Calc Estimated GFR POC Glucose Random Glucose Fasting Glucose Lactic Acid Lactic Acid F/U @ 2Hr Lactic Acid F/U @ 4Hr Calcium Magnesium Total Bilirubin Direct Bilirubin AST ALT Alkaline Phosphatase Troponin I High Sens 5.1 B-Natriuretic Peptide Total Protein Albumin Urine Color Urine Appearance Urine pH Ur Specific [place] Urine Protein Urine Glucose (UA) Urine Ketones Urine Blood Urine Nitrite Ur Leukocyte Esterase Urine RBC Urine WBC Ur Squamous Epith Cells Urine Bacteria Hyaline Casts Gastric Occult Blood POSITIVE Urine Opiates Screen Not Detected Urine Fentanyl Screen Not Detected Ur Barbiturates Screen Not Detected Ur Phencyclidine Scrn Not Detected Ur Amphetamines Screen Not Detected U Benzodiazepines Scrn Not Detected Urine Cocaine Screen Not Detected U Marijuana (THC) Screen Not Detected Ethyl Alcohol Acetone, Qual COVID-19 (XANDER) COVID-19 Smartesting 09/07/22 09/07/22 09/07/22 13:14 14:02 14:35 WBC RBC Hgb Hct MCV MCH MCHC RDW Plt Count MPV Immature Gran % (Auto) Neut % (Auto) Lymph % (Auto) [place] % (Auto) Eos % (Auto) Baso % (Auto) Lymph # (Auto) [place] # (Auto) Eos # (Auto) Baso # (Auto) Abs Immat Gran (auto) Absolute Neuts (auto) Absolute Nucleated RBC Nucleated RBC % (auto) Smear Tech's Comments PT INR Sodium Potassium Chloride Carbon Dioxide Anion Gap BUN Creatinine Estim Creat Clear Calc Estimated GFR POC Glucose 77 Random Glucose Fasting Glucose Lactic Acid Lactic Acid F/U @ 2Hr Lactic Acid F/U @ 4Hr Calcium Magnesium Total Bilirubin Direct Bilirubin AST ALT Alkaline Phosphatase Troponin I High Sens B-Natriuretic Peptide 128 H Total Protein Albumin Urine Color Urine Appearance Urine pH Ur Specific [place] Urine Protein Urine Glucose (UA) Urine Ketones Urine Blood Urine Nitrite Ur Leukocyte Esterase Urine RBC Urine WBC Ur Squamous Epith Cells Urine Bacteria Hyaline Casts Gastric Occult Blood Urine Opiates Screen Urine Fentanyl Screen Ur Barbiturates Screen Ur Phencyclidine Scrn Ur Amphetamines Screen U Benzodiazepines Scrn Urine Cocaine Screen U Marijuana (THC) Screen Ethyl Alcohol Acetone, Qual COVID-19 (XANDER) Negative COVID-19 Clin Com See Note 09/07/22 09/07/22 09/07/22 14:37 14:37 15:22 WBC RBC Hgb Hct MCV MCH MCHC RDW Plt Count MPV Immature Gran % (Auto) Neut % (Auto) Lymph % (Auto) [place] % (Auto) Eos % (Auto) Baso % (Auto) Lymph # (Auto) [place] # (Auto) Eos # (Auto) Baso # (Auto) Abs Immat Gran (auto) Absolute Neuts (auto) Absolute Nucleated RBC Nucleated RBC % (auto) Smear Tech's Comments PT INR Sodium 145 Potassium 4.1 Chloride 111 H Carbon Dioxide 14 L Anion Gap 24 H BUN 19 H Creatinine 0.99 Estim Creat Clear Calc 76.1 Estimated GFR > 60 POC Glucose 77 Random Glucose 54 L* Fasting Glucose Lactic Acid 6.1 H* Lactic Acid F/U @ 2Hr Lactic Acid F/U @ 4Hr Calcium 8.5 D Magnesium Total Bilirubin Direct Bilirubin AST ALT Alkaline Phosphatase Troponin I High Sens B-Natriuretic Peptide Total Protein Albumin Urine Color Urine Appearance Urine pH Ur Specific [place] Urine Protein Urine Glucose (UA) Urine Ketones Urine Blood Urine Nitrite Ur Leukocyte Esterase Urine RBC Urine WBC Ur Squamous Epith Cells Urine Bacteria Hyaline Casts Gastric Occult Blood Urine Opiates Screen Urine Fentanyl Screen Ur Barbiturates Screen Ur Phencyclidine Scrn Ur Amphetamines Screen U Benzodiazepines Scrn Urine Cocaine Screen U Marijuana (THC) Screen Ethyl Alcohol Acetone, Qual COVID-19 (XANDER) COVID-19 Clin Com 09/07/22 09/07/22 09/07/22 16:47 19:07 19:27 WBC RBC Hgb Hct MCV MCH MCHC RDW Plt Count MPV Immature Gran % (Auto) Neut % (Auto) Lymph % (Auto) [place] % (Auto) Eos % (Auto) Baso % (Auto) Lymph # (Auto) [place] # (Auto) Eos # (Auto) Baso # (Auto) Abs Immat Gran (auto) Absolute Neuts (auto) Absolute Nucleated RBC Nucleated RBC % (auto) Smear Tech's Comments PT INR Sodium Potassium Chloride Carbon Dioxide Anion Gap BUN Creatinine Estim Creat Clear Calc Estimated GFR POC Glucose 321 H Random Glucose Fasting Glucose Lactic Acid Lactic Acid F/U @ 2Hr 3.0 H* Lactic Acid F/U @ 4Hr 3.4 H* Calcium Magnesium Total Bilirubin Direct Bilirubin AST ALT Alkaline Phosphatase Troponin I High Sens B-Natriuretic Peptide Total Protein Albumin Urine Color Urine Appearance Urine pH Ur Specific [place] Urine Protein Urine Glucose (UA) Urine Ketones Urine Blood Urine Nitrite Ur Leukocyte Esterase Urine RBC Urine WBC Ur Squamous Epith Cells Urine Bacteria Hyaline Casts Gastric Occult Blood Urine Opiates Screen Urine Fentanyl Screen Ur Barbiturates Screen Ur Phencyclidine Scrn Ur Amphetamines Screen U Benzodiazepines Scrn Urine Cocaine Screen U Marijuana (THC) Screen Ethyl Alcohol Acetone, Qual COVID-19 (XANDER) COVID-19 Clin Com 09/07/22 09/08/22 09/08/22 21:51 06:09 06:26 WBC 13.2 H RBC 3.64 L Hgb 9.5 L Hct 30.0 L MCV 82.4 MCH 26.1 L MCHC 31.7 RDW 16.4 H Plt Count 296 D MPV 10.2 Immature Gran % (Auto) Neut % (Auto) Lymph % (Auto) [place] % (Auto) Eos % (Auto) Baso % (Auto) Lymph # (Auto) [place] # (Auto) Eos # (Auto) Baso # (Auto) Abs Immat Gran (auto) Absolute Neuts (auto) Absolute Nucleated RBC 0.000 Nucleated RBC % (auto) 0.0 Smear Tech's Comments PT INR Sodium Potassium Chloride Carbon Dioxide Anion Gap BUN Creatinine Estim Creat Clear Calc Estimated GFR POC Glucose 305 H 134 H Random Glucose Fasting Glucose Lactic Acid Lactic Acid F/U @ 2Hr Lactic Acid F/U @ 4Hr Calcium Magnesium Total Bilirubin Direct Bilirubin AST ALT Alkaline Phosphatase Troponin I High Sens B-Natriuretic Peptide Total Protein Albumin Urine Color Urine Appearance Urine pH Ur Specific [place] Urine Protein Urine Glucose (UA) Urine Ketones Urine Blood Urine Nitrite Ur Leukocyte Esterase Urine RBC Urine WBC Ur Squamous Epith Cells Urine Bacteria Hyaline Casts Gastric Occult Blood Urine Opiates Screen Urine Fentanyl Screen Ur Barbiturates Screen Ur Phencyclidine Scrn Ur Amphetamines Screen U Benzodiazepines Scrn Urine Cocaine Screen U Marijuana (THC) Screen Ethyl Alcohol Acetone, Qual COVID-19 (XANDER) COVIDCyber Gifts 09/08/22 09/08/22 09/08/22 06:26 06:26 07:17 WBC RBC Hgb Hct MCV MCH MCHC RDW Plt Count MPV Immature Gran % (Auto) Neut % (Auto) Lymph % (Auto) [place] % (Auto) Eos % (Auto) Baso % (Auto) Lymph # (Auto) [place] # (Auto) Eos # (Auto) Baso # (Auto) Abs Immat Gran (auto) Absolute Neuts (auto) Absolute Nucleated RBC Nucleated RBC % (auto) Smear Tech's Comments PT 11.3 INR 1.0 Sodium 145 Potassium 4.2 Chloride 114 H Carbon Dioxide 20 L Anion Gap 15 BUN 14 Creatinine 0.96 Estim Creat Clear Calc 78.4 Estimated GFR > 60 POC Glucose 153 H Random Glucose Fasting Glucose 148 H Lactic Acid Lactic Acid F/U @ 2Hr Lactic Acid F/U @ 4Hr Calcium 7.9 L D Magnesium 1.5 L Total Bilirubin Direct Bilirubin AST ALT Alkaline Phosphatase Troponin I High Sens B-Natriuretic Peptide Total Protein Albumin Urine Color Urine Appearance Urine pH Ur Specific [place] Urine Protein Urine Glucose (UA) Urine Ketones Urine Blood Urine Nitrite Ur Leukocyte Esterase Urine RBC Urine WBC Ur Squamous Epith Cells Urine Bacteria Hyaline Casts Gastric Occult Blood Urine Opiates Screen Urine Fentanyl Screen Ur Barbiturates Screen Ur Phencyclidine Scrn Ur Amphetamines Screen U Benzodiazepines Scrn Urine Cocaine Screen U Marijuana (THC) Screen Ethyl Alcohol Acetone, Qual COVID-19 (XANDER) COVID-19 Smartesting 09/08/22 13:24 WBC RBC Hgb Hct MCV MCH MCHC RDW Plt Count MPV Immature Gran % (Auto) Neut % (Auto) Lymph % (Auto) [place] % (Auto) Eos % (Auto) Baso % (Auto) Lymph # (Auto) [place] # (Auto) Eos # (Auto) Baso # (Auto) Abs Immat Gran (auto) Absolute Neuts (auto) Absolute Nucleated RBC Nucleated RBC % (auto) Smear Tech's Comments PT INR Sodium Potassium Chloride Carbon Dioxide Anion Gap BUN Creatinine Estim Creat Clear Calc Estimated GFR POC Glucose 170 H Random Glucose Fasting Glucose Lactic Acid Lactic Acid F/U @ 2Hr Lactic Acid F/U @ 4Hr Calcium Magnesium Total Bilirubin Direct Bilirubin AST ALT Alkaline Phosphatase Troponin I High Sens B-Natriuretic Peptide Total Protein Albumin Urine Color Urine Appearance Urine pH Ur Specific [place] Urine Protein Urine Glucose (UA) Urine Ketones Urine Blood Urine Nitrite Ur Leukocyte Esterase Urine RBC Urine WBC Ur Squamous Epith Cells Urine Bacteria Hyaline Casts Gastric Occult Blood Urine Opiates Screen Urine Fentanyl Screen Ur Barbiturates Screen Ur Phencyclidine Scrn Ur Amphetamines Screen U Benzodiazepines Scrn Urine Cocaine Screen U Marijuana (THC) Screen Ethyl Alcohol Acetone, Qual COVID-19 (XANDER) COVID-19 Clin Com Assessment and Plan Final Anesthetic Review Family History of Problems with Anesthesia: No History of Problems with Anesthesia: No
[2022-09-08 18:31] LABS: Glucose, Whole Blood 164 mg/dL (60-115)
--- NOTE | 2022-09-08 19:00 | PM.EVENT ---
Event Note Date of Service: 09/08/22 Event Note: GI-EGD-Full note dictated Findings: 1. Severe erosive esophagitis from 25cm to the EG Junction at 35cm. Biopsies taken at 28cm. 2. Antral gastritis, biopsied x 3 3. Small hiatal hernia No definitive signs of esophageal candidiasis Rec: Check path. Advance diet. 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 Hopefully avoid alcohol chcf. No aspirin nor NSAIDs. Thanks
--- NOTE | 2022-09-08 19:04 | PM.OP ---
Brief Operative Note Date of Service: 09/08/22 Pre-op diagnosis: UGI Bleed Post-op diagnosis: other (Erosive esophagitis, Gastritis, Hiatal hernia) Procedure: EGD with biopsies Surgeon: Yevgeniy Chan Anesthesia: GETA Was an Photogrammetrist used for this Procedure?: No Estimated blood loss (mL): 2.0 Pathology: other (A. Esophagus at 28cm B. Gastric antrum) Condition: stable Disposition: PACU
[2022-09-08 20:11] LABS: Glucose, Whole Blood 193 mg/dL (60-115)
[2022-09-08] MEDS: traZODone HCL 50 MG TABLET PO (20:20)
[2022-09-08] MEDS: Insulin Lispro 100 UNIT/ML 3 ML VIAL SUBCUT (20:21)
[2022-09-08] MEDS: Omeprazole 40 MG CAPSULE.DR PO (20:21)
[2022-09-09] VITALS (9 sets, daily range): BP systolic 130–165; BP diastolic 62–86; PULSE 55–87; RESP 14–20; TEMP 36.1–37.3; O2SAT 95–99
[2022-09-09] MEDS: 0.9 % Sodium Chloride Flush 3 ML SYRINGE IVFLUSH ×3 (00:35→21:50)
[2022-09-09] MEDS: Morphine Sulfate 2 MG/ML CARTRIDGE IVPUSH ×4 (00:40→22:45)
--- NOTE | 2022-09-09 03:21 | CONS_ITS ---
DATE OF SERVICE: 09/08/2022 REASON FOR CONSULTATION: Coffee-grounds emesis. HISTORY OF PRESENT ILLNESS: This has been obtained from the patient and the medical record. The patient is a 47-year-old male, I just saw last month when he was hospitalized for pulmonary issues and was noted to have anemia. I did see him in 2019 as well, at which time he was admitted for problems including esophageal candidiasis. An upper endoscopy in 2019 revealed the esophageal candidiasis and esophagitis as well as gastritis. He was treated with Diflucan at that time. When I saw him last month, he was noted to be anemic. However, the main reason he was in the hospital last month was for significant pulmonary issues and therefore, given no sign of any active bleeding, endoscopy nor colonoscopy were performed. However, he did tell me at that time he was scheduled for an upper endoscopy and colonoscopy as an outpatient at [facility]. However, he reports that it was not done due to ongoing medical issues. He apparently has been drinking vodka regularly. He had several episodes of vomiting yesterday, which he describes as black liquid. He denies any associated hematemesis. He has been having a lot of odynophagia as well. When I saw him a month ago that was not an issue for him. He has been on prednisone frequently in relation to his pulmonary disease. In addition of the vodka, the patient does smoke intermittently and also takes a low-dose aspirin. He denies any NSAIDs. Since admission here, he reports that he has had no further vomiting. He denies any melena nor hematochezia at home. He has had some fairly diffuse abdominal pain. His hemoglobin on admission was 11.5 yesterday and today is 9.5. His hemoglobin was 10.5 on August 24, 2022. His platelet count and PT with INR have been normal. CURRENT MEDICATIONS: Include amlodipine, albuterol inhaler, atorvastatin, escitalopram, gabapentin, hydralazine, insulin, labetalol, metoprolol, morphine p.r.n., nicotine patch, IV pantoprazole, phenobarbital, trazodone. PAST MEDICAL HISTORY: He describes a vascular stent in the left leg from Dr. Dominguez in 2019. He has COPD for which he uses oxygen at home. Esophageal candidiasis and esophagitis as above. Sleep apnea and COPD. Peripheral vascular disease. Congestive heart failure. Insulin-dependent diabetes mellitus. Pneumonia. Renal insufficiency. He denies a history of [place] or stroke. He denies any surgeries. Other medical issues include hyperlipidemia, hypertension, and depression with associated anxiety. SOCIAL HISTORY: He smokes intermittently. He has been drinking vodka regularly by his description. FAMILY HISTORY: Noncontributory. REVIEW OF SYSTEMS: CONSTITUTIONAL: He has been feeling poorly at home, primarily in relation to his odynophagia and inability to eat very much. CARDIAC: No chest pain. PULMONARY: He does have coughing, but denies hemoptysis. GI: As above. PHYSICAL EXAMINATION: GENERAL: The patient is alert, chronically ill-appearing male, in no distress. SKIN: Warm and dry. Nonjaundiced. Anicteric sclerae. NECK: Supple. CARDIAC: Normal S1, S2. ABDOMEN: Soft, nondistended with normal bowel sounds. There is some mild tenderness. EXTREMITIES: Without edema. LABORATORY DATA: As above. White blood cell count 13.2, hemoglobin 9.5, platelets 296,000. PT 11.3 with INR 1.0. Sodium 145, potassium 4.2, BUN 14, creatinine 0.96. Normal liver profile except for alkaline phosphatase of 139. Albumin 4.4. Chest x-ray from yesterday is described as negative for any acute pulmonary disease. CT scan of the abdomen and pelvis from yesterday describes no acute intraabdominal abnormality, specifically the GI tract appears normal. There is no ascites, no biliary disease. IMPRESSION: Given the patient's clinical history, I suspect his current presentation with upper gastrointestinal bleeding and odynophagia is related to at least a component of esophageal candidiasis. Given his medical condition as well as use of steroids, I would think this puts him at high risk of having had a recurrence of that. He may very well have a component of acid reflux and esophagitis on that basis as well, in addition to other possibilities such as ulcer disease or significant gastritis. I would recommend an upper endoscopy with monitored anesthesia care for further evaluation. Full consent was obtained from him for that, including risks of bleeding and perforation. In the meantime, I will continue his IV pantoprazole and follow his hemoglobin. I will keep him n.p.o. until we do the procedure. This has all been discussed in detail with the patient and he is comfortable with the plan. Thank you for this consultation. MD ANASTASIYA Saravia/SCAR / [id number]
[2022-09-09] MEDS: Omeprazole 40 MG CAPSULE.DR PO ×2 (05:37→15:50)
--- NOTE | 2022-09-09 05:48 | OP_ITS ---
SURGEON: Yevgeniy Chan MD INDICATIONS: The patient presents for evaluation of upper GI bleeding. Full consent has been obtained from him for this, including risks of bleeding and perforation. PREOPERATIVE DIAGNOSIS: Upper gastrointestinal bleeding. POSTOPERATIVE DIAGNOSIS: PROCEDURE PERFORMED: Esophagogastroduodenoscopy with biopsies. ESTIMATED BLOOD LOSS: COMPLICATIONS: ANESTHESIA: General anesthesia. ASSISTANTS: SPECIMENS: POSTOPERATIVE DIAGNOSES: Upper gastrointestinal bleeding, severe erosive esophagitis, hiatal hernia, gastritis. DESCRIPTION OF PROCEDURE: The patient was kept in the supine position. The Olympus video gastroscope was passed in the posterior oropharynx and upper esophagus under direct vision. The scope was passed slowly into the distal esophagus. The gastroesophageal junction appeared at 35 cm. Extending from this to 25 cm was evidence of severe erosive esophagitis with several long linear ulcerations. There was no obvious evidence of esophageal candidiasis. There was no sign of any stricture nor mass. There was no obvious evidence of Perez mucosa. The scope entered into the stomach, there was a small hiatal hernia. The scope was advanced to the pylorus and the duodenum was cannulated to the descending portion. The duodenum including the bulb appeared normal without mass or ulceration. The scope was withdrawn back to the stomach. The gastric antrum and body had areas of erythema and edema but no erosions or ulceration. There was good peristalsis. Scope was retroflexed visualizing the proximal stomach carefully which appeared normal, without any sign of mass or ulceration. The scope was straightened. Biopsies were obtained from the gastric antrum. The scope was withdrawn back to the esophagus. Biopsies were obtained at 28 cm. Proximal to 25 cm, the esophageal mucosa had some evidence of scarring from previous episodes of esophagitis but no sign of any stricture nor mass. Again, there was no obvious evidence of esophageal candidiasis. The scope was withdrawn from the patient. He tolerated the procedure well and was returned to the recovery area in stable condition. IMPRESSION: 1. Erosive esophagitis. 2. Hiatal hernia. 3. Gastritis. PLAN: The results of the biopsies will be checked. At this point, he will be started on a diabetic diet. I shall switch him to oral omeprazole 40 mg b.i.d. I would recommend he continue that for 2 months and then daily on a long-term basis. He should avoid all aspirin and NSAIDs. Obviously, long-term abstinence from alcohol will help this as well. MD ANASTASIYA Saravia/SCAR / [phone] AMILCAR
[2022-09-09 06:12] LABS: Hematocrit 30.7 % (42.0-52.0); Hemoglobin 9.7 g/dl (14.0-18.0); Mean Corpuscular HGB Conc 31.6 g/dl (31.0-36.0); Mean Corpuscular Hemoglobin 26.1 pg (27.0-33.0); Mean Corpuscular Volume 82.5 fL (80.0-98.0); Mean Platelet Volume 9.8 fL (9.4-12.4); Platelet Count 294 X10*3/uL (160-400); Red Blood Count 3.72 X10*6/uL (4.60-5.80); Red Cell Distribution Width 16.2 % (11.0-16.0); White Blood Count 11.6 X10*3/uL (4.8-10.8)
[2022-09-09 06:32] LABS: Alanine Aminotransferase 17 U/L (0-40); Albumin Level 3.3 g/dL (3.5-5.0); Alkaline Phosphatase 99 U/L (39-117); Anion Gap 15 (12-20); Aspartate Amino Transferase 18 U/L (5-37); Bilirubin Direct 0.2 mg/dL (0.0-0.5); Bilirubin Total 0.5 mg/dL (0.0-1.0); Blood Urea Nitrogen 12 mg/dL (9-16); Calcium 8.2 mg/dL (8.4-10.2); Carbon Dioxide 21 mmol/L (22-29); Chloride 107 mmol/L (96-108); Creatinine Clr Calc Pharmacy 79.3; Estimated Glomerular Filt Rate > 60; Glucose Fasting 153 mg/dL (60-99); Magnesium 2.2 mg/dL (1.6-2.6); Potassium 4.4 mmol/L (3.3-5.1); Sodium 139 mmol/L (135-145); Total Protein 5.9 g/dL (6.5-8.0)
[2022-09-09 07:48] LABS: Glucose, Whole Blood 146 mg/dL (60-115)
[2022-09-09] MEDS: PHENobarbitaL 15 MG TABLET 45 MG PO ×2 (09:14→21:46)
[2022-09-09] MEDS: Atorvastatin Calcium 40 MG TABLET PO (09:14)
[2022-09-09] MEDS: amLODIPine Besylate 10 MG TABLET PO (09:14)
[2022-09-09] MEDS: Magnesium Oxide 400 MG TABLET PO ×2 (09:14→18:39)
[2022-09-09] MEDS: Gabapentin 300 MG CAPSULE PO ×3 (09:14→22:45)
[2022-09-09] MEDS: Metoprolol Succinate ER 100 MG TAB.ER.24H PO (09:14)
[2022-09-09] MEDS: Escitalopram Oxalate 10 MG TABLET PO (09:14)
[2022-09-09] MEDS: Nicotine 21 MG PATCH.TD24 TRANSDERMA (09:15)
[2022-09-09] MEDS: hydrALAZINE HCl 50 MG TABLET PO ×3 (09:15→21:50)
[2022-09-09] MEDS: lisinopriL 40 MG TABLET PO (09:15)
--- NOTE | 2022-09-09 09:56 | HO.PM.IMPN ---
Subjective Subjective Date of Service: 09/09/22 Interval History: cc: n/v abd pain interval history: still with abd pain Cardiovascular Cardiovascular: Reports no additional cardiovascular complaints Gastrointestinal Gastrointestinal: Reports no additional gastrointestinal complaints Physical Exam Vital Signs: Vital Signs: Last Vital Signs Temp 97.0 F 09/09/22 07:33 Pulse 81 09/09/22 07:33 Resp 20 09/09/22 07:33 BP 157/77 H 09/09/22 07:33 Pulse Ox 96 09/09/22 07:33 O2 Del Method 09/09/22 07:33 O2 Flow Rate 2 09/09/22 03:27 Oxygen Flow Rate 3 09/07/22 11:06 BMI result Body Mass Index 21.6 General: AO X 3, in pain Resp: CTA bilateral, no accessory muscles used CVS: S1,S2,RRR GI: soft, non tender, non distended Neuro: motor grossly intact, alert Psych: appropriate affect, appropriate insight Objective Data Active Medications Albuterol/Ipratropium (Albuterol/Iprat 2.5/0.5mg 3 Ml Ampul.Neb) 3 ml INHALE RTID PRN PRN Reason: sob Amlodipine Besylate (Amlodipine Besylate 10 Mg Tablet) 10 mg PO DAILY [facility]; Protocol Last Admin: 09/09/22 09:14 Dose: 10 mg Documented By: ERICK Atorvastatin Calcium (Atorvastatin Calcium 40 Mg Tablet) 40 mg PO DAILY [facility] Last Admin: 09/09/22 09:14 Dose: 40 mg Documented By: ERICK Dextrose (Dextrose 50 % 25 Gm/50 Ml Syringe) 25 gm IVPUSH Q15M PRN; Protocol PRN Reason: per Hypoglycemia Standing Ord. Escitalopram Oxalate (Escitalopram Oxalate 10 Mg Tablet) 10 mg PO DAILY [facility] Last Admin: 09/09/22 09:14 Dose: 10 mg Documented By: ERICK Gabapentin (Gabapentin 300 Mg Capsule) 300 mg PO TID [facility] Last Admin: 09/09/22 09:14 Dose: 300 mg Documented By: ERICK Glucose (Glucose Gel 15 Gm Gel..Gram.) 15 gm PO Q15M PRN; Protocol PRN Reason: per Hypoglycemia Standing Ord. Hydralazine HCl (Hydralazine Hcl 50 Mg Tablet) 50 mg PO TID [facility]; Protocol Last Admin: 09/09/22 09:15 Dose: 50 mg Documented By: ERICK Insulin Human Lispro (Insulin Lispro 100 Unit/Ml 3 Ml Vial) 0 unit SUBCUT QIDACHS [facility]; Protocol Last Admin: 09/09/22 08:21 Dose: Not Given Documented By: ERICK Non-Admin Reason: No Insulin Coverage Lisinopril (Lisinopril 40 Mg Tablet) 40 mg PO DAILY [facility]; Protocol Last Admin: 09/09/22 09:15 Dose: 40 mg Documented By: ERICK Magnesium Oxide (Magnesium Oxide 400 Mg Tablet) [facility] Last Admin: 09/09/22 09:14 Dose: 400 mg Documented By: ERICK Metoprolol Succinate (Metoprolol Succinate Er 100 Mg Tab.Er.24h) 100 mg PO DAILY [facility]; Protocol Last Admin: 09/09/22 09:14 Dose: 100 mg Documented By: ERICK Morphine Sulfate (Morphine Sulfate 2 Mg/Ml Cartridge) 2 mg IVPUSH Q4H PRN; Protocol PRN Reason: moderate pain Last Admin: 09/09/22 00:40 Dose: 2 mg Documented By: MEGA Nicotine (Nicotine 21 Mg Patch.Td24) 21 mg TRANSDERMA DAILY [facility] Last Admin: 09/09/22 09:15 Dose: 21 mg Documented By: ERICK Nicotine Polacrilex (Nicotine Polacrilex 2 Mg Gum) 2 mg BUCCAL Q1H PRN PRN Reason: nicotini cravingz Omeprazole (Omeprazole 40 Mg Capsule.Dr) 40 mg PO BID@0630,1630 [facility] Last Admin: 09/09/22 05:37 Dose: 40 mg Documented By: MEGA Pharmacy Consult (Consult Rx Perform Med Rec) 1 each MISCELLANE ONCE PRN PRN Reason: Consult order Pharmacy Consult (Consult Rx Etoh Phenob Po Only) 1 each MISCELLANE ONCE PRN; Protocol PRN Reason: Consult order Phenobarbital (Phenobarbital 15 Mg Tablet) 45 mg PO BID [facility] Stop: 09/09/22 21:01 Last Admin: 09/09/22 09:14 Dose: 45 mg Documented By: ERICK Phenobarbital (Phenobarbital 30 Mg Tablet) 30 mg PO BID [facility] Stop: 09/11/22 21:01 Phenobarbital (Phenobarbital 15 Mg Tablet) 15 mg PO DAILY [facility] Stop: 09/13/22 09:01 Sodium Chloride (0.9 % Sodium Chloride Flush 3 Ml Syringe) 3 ml IVFLUSH QSHIFT [facility] Last Admin: 09/09/22 09:20 Dose: 3 ml Documented By: ERICK Sucralfate (Sucralfate 1 Gm Tablet) 1 gm PO QIDACHS [facility] Trazodone HCl (Trazodone Hcl 50 Mg Tablet) 50 mg PO BEDTIME [facility] Last Admin: 09/08/22 20:20 Dose: 50 mg Documented By: GLENNY Labs CBC & Chem 7: 09/09/22 05:43 09/09/22 05:43 Labs: Laboratory Results - last 24 hr 09/08/22 09/08/22 09/08/22 13:24 18:13 20:07 MCV MCH MCHC RDW Plt Count MPV Absolute Nucleated RBC Nucleated RBC % (auto) Anion Gap Estim Creat Clear Calc Estimated GFR POC Glucose 170 H 164 H 193 H Fasting Glucose Calcium Magnesium Total Bilirubin Direct Bilirubin AST ALT Alkaline Phosphatase Total Protein Albumin 09/09/22 09/09/22 09/09/22 05:43 05:43 07:36 MCV 82.5 MCH 26.1 L MCHC 31.6 RDW 16.2 H Plt Count 294 MPV 9.8 Absolute Nucleated RBC 0.000 Nucleated RBC % (auto) 0.0 Anion Gap 15 Estim Creat Clear Calc 79.3 Estimated GFR > 60 POC Glucose 146 H Fasting Glucose 153 H D Calcium 8.2 L Magnesium 2.2 Total Bilirubin 0.5 Direct Bilirubin 0.2 AST 18 ALT 17 Alkaline Phosphatase 99 D Total Protein 5.9 L D Albumin 3.3 L D Assessment and Plan (1) Acute upper GI bleed: Status: Acute Plan 47yo M with COPD on 2L O2 at home, YARELIS, HFpEF, DM2, and CKD3?with recent admission for CHF and HCAP presented with sob, chest pain, abd pain, and coffee ground emesis.? labs signifcant for lactic acisosis, hyper and hypoglycemia, delma. coffee ground emesis due to severe esophagitis (seen on EGD), due to etoh use hgb stable, changed to po ppi, will add carafate asa held monitor h and h chest pain/abd pain was likely due to above no signs of cardiac ischemia chronic hypoxic resp failure due to copd stable, cxr much improved from previous DM2 with hyperglycmeia and hypoglycemia insulin, monitor closely etoh dependence with withdrawal phenobarb, ciwa hfpef now euvolemic delma resolved lactic acidossis not due to sepsis dvt prophylaxis - mechanical due to bleed full code reason for continued hospitalization:awaiting tolerance of po Quality Stroke Does the patient have a stroke diagnosis?: No VTE Prior VTE?: No VTE Risk Level:: Medical - moderate - high VTE Device Contraindication: N/A - Device Ordered VTE Drug Contraindication: Treatment Not Tolerated
[2022-09-09 11:04] LABS: Glucose, Whole Blood 169 mg/dL (60-115)
[2022-09-09] MEDS: Insulin Lispro 100 UNIT/ML 3 ML VIAL SUBCUT ×3 (11:34→21:50)
[2022-09-09] MEDS: Sucralfate 1 GM TABLET PO ×3 (11:34→21:50)
--- NOTE | 2022-09-09 12:22 | HO.POSTANES ---
Post Anesthesia Evaluation Post Anesthesia Evaluation Vital Signs: Vital Signs Temp Pulse Resp BP Pulse Ox O2 Del Method O2 Flow Rate 09/09/22 11:12 98.8 F 87 20 163/83 H 99 Nasal Cannula 2 09/09/22 07:33 97.0 F 81 20 157/77 H 96 Room Air 09/09/22 03:27 98.0 F 79 14 160/62 H 98 Nasal Cannula 2 Anesthesia: General Mental Status: Awake Pain Control: Satisfactory Nausea/Vomiting: None Hydration: Adequate Anesthesia-Related Issues: No Anes. Related Issues
--- NOTE | 2022-09-09 13:15 | MHC.CM.PN ---
Per MD rounds patient may be ready to discharge tomorrow. DP home with [facility]. Patient will arrange for transport home.
[2022-09-09 15:36] LABS: Glucose, Whole Blood 227 mg/dL (60-115)
--- NOTE | 2022-09-09 18:00 | PC.NURSE ---
report received from overnight RN. Pt c/o feeling out of it and foggy this morning, also c/o pain in his throat and epigastric region along with feeling heart burn . notified, new order for carafate. administrative services manager per DEC. Call harper within reach, safety precautions in place, bed alarm on.
[2022-09-09 20:25] LABS: Glucose, Whole Blood 192 mg/dL (60-115)
[2022-09-09] MEDS: traZODone HCL 50 MG TABLET PO (21:50)
[2022-09-10 03:33] VITALS: BP 133/72; PULSE 70; RESP 20; TEMP 36.2; O2SAT 97
[2022-09-10] MEDS: Omeprazole 40 MG CAPSULE.DR PO (05:39)
[2022-09-10] MEDS: 0.9 % Sodium Chloride Flush 3 ML SYRINGE IVFLUSH ×2 (05:41→08:03)
--- NOTE | 2022-09-10 06:11 | PC.NURSE ---
2100 Med pass originally documented under day shift nurse;this RN reported to compressed yeast supervisor Med pass documentation updated manually.
[2022-09-10 06:51] LABS: Hematocrit 32.6 % (42.0-52.0); Hemoglobin 10.5 g/dl (14.0-18.0); Mean Corpuscular HGB Conc 32.2 g/dl (31.0-36.0); Mean Corpuscular Hemoglobin 26.1 pg (27.0-33.0); Mean Corpuscular Volume 80.9 fL (80.0-98.0); Mean Platelet Volume 9.8 fL (9.4-12.4); Platelet Count 306 X10*3/uL (160-400); Red Blood Count 4.03 X10*6/uL (4.60-5.80); Red Cell Distribution Width 15.4 % (11.0-16.0); White Blood Count 12.1 X10*3/uL (4.8-10.8)
[2022-09-10 07:06] LABS: Anion Gap 17 (12-20); Blood Urea Nitrogen 13 mg/dL (9-16); Calcium 8.5 mg/dL (8.4-10.2); Carbon Dioxide 20 mmol/L (22-29); Chloride 104 mmol/L (96-108); Creatinine Clr Calc Pharmacy 67.8; Estimated Glomerular Filt Rate > 60; Glucose Fasting 184 mg/dL (60-99); Potassium 4.4 mmol/L (3.3-5.1); Sodium 137 mmol/L (135-145)
[2022-09-10 07:11] VITALS: BP 165/85; PULSE 71; RESP 16; TEMP 36.5; O2SAT 99
[2022-09-10 07:36] LABS: Glucose, Whole Blood 179 mg/dL (60-115)
[2022-09-10] MEDS: Insulin Lispro 100 UNIT/ML 3 ML VIAL SUBCUT ×2 (07:54→11:08)
[2022-09-10] MEDS: Nicotine 21 MG PATCH.TD24 TRANSDERMA (07:56)
[2022-09-10] MEDS: PHENobarbitaL 30 MG TABLET PO (08:02)
[2022-09-10] MEDS: Metoprolol Succinate ER 100 MG TAB.ER.24H PO (08:02)
[2022-09-10] MEDS: Magnesium Oxide 400 MG TABLET PO (08:02)
[2022-09-10] MEDS: lisinopriL 40 MG TABLET PO (08:02)
[2022-09-10] MEDS: hydrALAZINE HCl 50 MG TABLET PO (08:02)
[2022-09-10] MEDS: Sucralfate 1 GM TABLET PO ×2 (08:02→11:09)
[2022-09-10] MEDS: Gabapentin 300 MG CAPSULE PO (08:02)
[2022-09-10] MEDS: Escitalopram Oxalate 10 MG TABLET PO (08:03)
[2022-09-10] MEDS: amLODIPine Besylate 10 MG TABLET PO (08:03)
[2022-09-10] MEDS: Atorvastatin Calcium 40 MG TABLET PO (08:03)
[2022-09-10 09:15] VITALS: RESP 16
[2022-09-10] MEDS: Morphine Sulfate 2 MG/ML CARTRIDGE IVPUSH (09:15)
[2022-09-10 11:02] LABS: Glucose, Whole Blood 257 mg/dL (60-115)
[2022-09-10 11:30] VITALS: BP 135/85; PULSE 79; RESP 17; TEMP 36.8; O2SAT 99
--- NOTE | 2022-09-10 11:34 | PM.DS ---
DS: Providers Provider Date of Service: 09/10/22 Date of admission: 09/07/22 18:04 Primary care physician: Zari Henry MD Consults: 09/07/22 18:02 Consult to Gastroenterology Routine Consulting Provider: Rafael Camilo Reason for consultation: coffee ground emesis DS: Diagnosis Discharge Diagnosis (1) Acute upper GI bleed: Status: Acute DS: Summary Hospital Course Hospital Course: from initial hpi: Chief Complaint: abd pain, sob 47yo M with COPD on 2L O2 at home, YARELIS, HFpEF, DM2, and CKD3?with recent admission for CHF and HCAP presented with sob, chest pain, abd pain, and coffee ground emesis. patient reports symptoms began AM of admission. similar to previous episodes he had in past. work up previously has been unremarkable, although he has never had endocsocpy. patient drinks about 750ml vodka every 2 days. his last drink was day prior to presentation. labs signifcant for lactic acisosis, hyper and hypoglycemia, delma. hospital course: patient was admitted for coffee-ground emesis due to severe esophagitis as seen on EGD done during hospitalization. This is likely due to alcohol use. His hemoglobin remained stable. He was transitioned from IV to p.o. PPI. His aspirin was held. Will also add Carafate. Patient is educated on discontinue alcohol. Patient also had chest pain on admission, this was likely due to his esophagitis, his troponin and EKG were negative. For his chronic hypoxic respiratory failure due to COPD he remained stable on his home O2. For his diabetes with both hyperglycemia and hypoglycemia he was given insulin and monitor closely. Resolved all dependence with withdrawal he was given phenobarbital protocol and withdrawal symptoms resolved. For his chronic diastolic CHF patient was initially hypovolemic and given IV fluids, is now euvolemic. He will restart Lasix on discharge for maintenance. Patient presented with acute kidney injury which resolved after IV hydration. He is feeling much better will be discharged home. Time Spent with Patient Time attestation: Total time spent providing and/or coordinating discharge services: Discharge coordination time: Greater than 30 minutes Quality: Safe Use of Opioids Does Pt have an Active Cancer Diagnosis on the Problem List?: No Quality: Stroke Does the patient have a stroke diagnosis?: No Physical Exam Vital Signs: Vital Signs: Last Vital Signs Temp 98.2 F 09/10/22 11:30 Pulse 79 09/10/22 11:30 Resp 17 09/10/22 11:30 BP 135/85 09/10/22 11:30 Pulse Ox 99 09/10/22 11:30 O2 Del Method 09/10/22 11:30 O2 Flow Rate 2 09/10/22 11:30 Oxygen Flow Rate 2 09/09/22 18:43 BMI result Body Mass Index 21.6 General: AO X 3, no acute distress Resp: CTA bilateral, no accessory muscles used CVS: S1,S2,RRR GI: soft, non tender, non distended Neuro: motor grossly intact, alert Psych: appropriate affect, appropriate insight DS: Data Data Completed and Pending Completed studies during hospitalization [Text1]: Procedures Assistance with Respiratory Ventilation, Less than 24 Consecutive Hours, Continuous Positive Airway Pressure (08/17/22) Pending studies at discharge: Pending at discharge 09/08/22 18:49 Surgical [PTH] Routine Labs on day of discharge: Laboratory Results - last 24 hr 09/09/22 09/09/22 09/10/22 15:10 19:14 06:08 WBC 12.1 H RBC 4.03 L Hgb 10.5 L Hct 32.6 L MCV 80.9 MCH 26.1 L MCHC 32.2 RDW 15.4 Plt Count 306 MPV 9.8 Absolute Nucleated RBC 0.000 Nucleated RBC % (auto) 0.0 Sodium Potassium Chloride Carbon Dioxide Anion Gap BUN Creatinine Estim Creat Clear Calc Estimated GFR POC Glucose 227 H 192 H Fasting Glucose Calcium 09/10/22 09/10/22 09/10/22 06:08 07:14 10:49 WBC RBC Hgb Hct MCV MCH MCHC RDW Plt Count MPV Absolute Nucleated RBC Nucleated RBC % (auto) Sodium 137 Potassium 4.4 Chloride 104 Carbon Dioxide 20 L Anion Gap 17 BUN 13 Creatinine 1.11 Estim Creat Clear Calc 67.8 Estimated GFR > 60 POC Glucose 179 H 257 H Fasting Glucose 184 H Calcium 8.5 Discharge Plan Discharge Anticipated Discharge Date/Time: 09/10/22 11:27 Patient Disposition: Home, Self-Care Discharge Diagnosis: esophogitis Referrals: Zari Henry MD [Primary Care Provider] - 1 Week Discharge Medications: New sucralfate 1 gram Tablet 1 g PO QIDACHS Qty: 120 0RF Continued hydralazine 50 mg Tablet 50 mg PO TID Qty: 90 0RF Protocol: Hold for SBP< HOLD for SBP < : 90 Anoro Ellipta 62.5-25 mcg/actuation Blister With Device 1 inh INHALATION DAILY atorvastatin 40 mg tablet 1 tab PO DAILY trazodone 50 mg tablet 50 mg PO BEDTIME metoprolol succinate 100 mg tablet extended release 24 hr 1 tab PO DAILY omeprazole 40 mg capsule,delayed release(DR/EC) 1 cap PO DAILY gabapentin 300 mg capsule 1 cap PO TID insulin lispro 100 unit/mL solution See Rx Instructions .ROUTE .COMPLEX Rx Instructions: insulin pump; use up to 100 units daily albuterol sulfate 90 mcg/actuation HFA aerosol inhaler 2 puff INHALATION Q6H lisinopril 40 mg tablet 1 tab PO DAILY escitalopram oxalate 10 mg tablet 10 mg PO DAILY ipratropium-albuterol 0.5 mg-3 mg(2.5 mg base)/3 mL Solution For Nebulization 3 ml inhalation Q8H 30 Days Qty: 180 1RF amlodipine 10 mg Tablet 10 mg PO DAILY 30 Days Qty: 30 0RF Protocol: Hold for SBP< HOLD for SBP < : 90 nicotine 21 mg/24 hr Patch 24 Hour 21 mg transdermal DAILY 30 Days Qty: 28 5RF ferrous sulfate 324 mg (65 mg iron) Tablet,Delayed Release (Dr/Ec) 324 mg PO DAILY 30 Days Qty: 30 0RF furosemide 40 mg Tablet 40 mg PO DAILY Qty: 30 0RF Protocol: Hold for SBP< HOLD for SBP < : 90 nicotine (polacrilex) 2 mg Gum 2 mg buccal Q1H PRN (Reason: nicotini cravingz) Qty: 100 5RF magnesium oxide 400 mg (241.3 mg magnesium) Tablet 400 mg PO BIDPC Qty: 60 0RF Discontinued aspirin 81 mg tablet,delayed release (DR/EC) 1 tab PO DAILY Discharge Orders: Discharge Order (Routine); Ordered 09/10/22 Ordered By: Garret Cifuentes Diet: Advance to usual diet Activity on Discharge: As tolerated Stand Alone Forms: Patient Portal Discharge page Care Plan Goals: [facility] Concerns: esophogitis, etoh dependence Plan of Treatment: omeprazole, stop etoh Assessment: see above
== END 2022-09-10 14:19 | disposition home or self-care (01) | DRG 241 ==
LOC: HO.ED 17:49 → HO.EDOVER 18:30 → HO.IMC 09-08 16:56
PROVIDERS: Internal Medicine; Admitting Provider Internal Medicine; Emergency Provider Emergency Medicine; PCP Internal Medicine; Visit Provider Internal Medicine
PROC: 0DJ08ZZ Inspection of Upper Intestinal Tract, Via Natural or Artificial Opening Endoscopic (ICD-10-PCS; CPT 43235; principal; 2022-09-08 17:30)
DX: K29.71 Gastritis, unspecified, with bleeding (principal); J96.11 Chronic respiratory failure with hypoxia; K22.11 Ulcer of esophagus with bleeding; E11.649 Type 2 diabetes mellitus with hypoglycemia without coma; N17.9 Acute kidney failure, unspecified; E87.20 Acidosis, unspecified; F41.9 Anxiety disorder, unspecified; E11.22 Type 2 diabetes mellitus with diabetic chronic kidney disease; I13.0 Hypertensive heart and chronic kidney disease with heart failure and stage 1 through stage 4 chronic kidney disease, or unspecified chronic kidney disease; I50.32 Chronic diastolic (congestive) heart failure; E11.51 Type 2 diabetes mellitus with diabetic peripheral angiopathy without gangrene; G47.33 Obstructive sleep apnea (adult) (pediatric); N18.30 Chronic kidney disease, stage 3 unspecified; J44.9 Chronic obstructive pulmonary disease, unspecified; F10.239 Alcohol dependence with withdrawal, unspecified; Y90.0 Blood alcohol level of less than 20 mg/100 ml; K44.9 Diaphragmatic hernia without obstruction or gangrene; Z99.81 Dependence on supplemental oxygen; E11.65 Type 2 diabetes mellitus with hyperglycemia; F17.210 Nicotine dependence, cigarettes, uncomplicated; Z20.822 Contact with and (suspected) exposure to COVID-19; Z71.6 Tobacco abuse counseling; Z88.8 Allergy status to other drugs, medicaments and biological substances; Z79.4 Long term (current) use of insulin; Z79.899 Other long term (current) drug therapy
CPT/HCPCS: 36415; 71045; 74177; 80048; 80076; 80307; 81001; 82009; 82077; 82271; 82947; 83605; 83735; 83880; 84484; 85025; 85027; 85610; 87635; 88305; 88312; 88342; 93005; 94640; 99285; J0131; J2270; J2354; J2560; J3475; Q9967

== ENCOUNTER → 2022-10-06 14:39 | Outpatient (BNVA) | payer OTHER, SELFPAY | PROVIDERS: PCP Internal Medicine; Referring Provider Internal Medicine; Visit Provider Nurse Practitioner Family | DX: I13.0 Hypertensive heart and chronic kidney disease with heart failure and stage 1 through stage 4 chronic kidney disease, or unspecified chronic kidney disease (principal); I50.33 Acute on chronic diastolic (congestive) heart failure; E11.65 Type 2 diabetes mellitus with hyperglycemia; E11.22 Type 2 diabetes mellitus with diabetic chronic kidney disease; N18.9 Chronic kidney disease, unspecified; N17.9 Acute kidney failure, unspecified; J44.9 Chronic obstructive pulmonary disease, unspecified | CPT/HCPCS: 93005; 99212 ==

== ENCOUNTER 2022-11-03 03:41 | Inpatient (IN) | payer OTHER, SELFPAY ==
[2022-11-03] VITALS (13 sets, daily range): BP systolic 86–168; BP diastolic 43–77; PULSE 66–90; RESP 12–18; TEMP 36.2–37.2; O2SAT 96–98; BMI 20.4; BMI 22.6
--- NOTE | 2022-11-03 | ECG_ITS ---
Test Reason : FALL Blood Pressure : / mmHG Vent. Rate : 067 BPM Atrial Rate : 067 BPM P-R Int : 140 ms QRS Dur : 082 ms QT Int : 438 ms P-R-T Axes : 034 050 082 degrees QTc Int : 462 ms Normal sinus rhythm Nonspecific ST and T wave abnormality Prolonged QT Abnormal ECG When compared with ECG of 07-SEP-2022 13:06, Vent. rate has decreased BY 48 BPM T wave inversion now evident in Inferior leads T wave inversion now evident in Anterior leads Referred By: Generic ED Physician Electronically Signed By:JESSICA LY
--- NOTE | ~2022-11-03 | XR_ITS ---
EXAMINATION: XR CHEST CLINICAL INFORMATION: Syncope COMPARISON: 09/08/2022 TECHNIQUE: Frontal view of the chest was obtained. FINDINGS: Normal symmetric lung volumes. No parenchymal consolidation. No pleural effusion. No pneumothorax. Cardiomediastinal silhouette and pulmonary vascularity are within normal limits. No acute osseous abnormalities. XR/XR chest 1V IMPRESSION: No acute pulmonary disease.
--- NOTE | ~2022-11-03 | US_ITS ---
EXAMINATION: US RETROPERITONEAL LIMITED (RENAL ONLY) CLINICAL INFORMATION: Renal failure with question of obstruction. COMPARISON: CT abdomen pelvis 09/07/2022 TECHNIQUE: Ultrasound of the kidneys was performed FINDINGS: RIGHT KIDNEY: 11.3 x 5.2 x 4.8 cm (SAG x AP x TRV). The kidney is normal in size, contour, and echogenicity. Renal cortical thickness is normal. No calculi or focal parenchymal lesions. No hydronephrosis. LEFT KIDNEY: 10.6 x 6.2 x 3.6 cm (SAG x AP x TRV). The kidney is normal in size, contour, and echogenicity. Renal cortical thickness is normal. No calculi or focal parenchymal lesions. No hydronephrosis. US/US renal BI IMPRESSION: Normal-appearing kidneys. No evidence of obstruction.
--- NOTE | ~2022-11-03 | CT_ITS ---
EXAMINATION: NONCONTRAST HEAD CT NONCONTRAST CERVICAL SPINE CT INDICATION INFORMATION: Syncope COMPARISON: None TECHNIQUE: Separate noncontrast CT examinations of the head and cervical spine were performed. Coronal and sagittal images were created for each examination at the technologist workstation. This CT examination was performed using dose optimization techniques as appropriate, variously including the following: *Automated exposure control *Adjustment of mA and/or kV according to patient size (this includes techniques or standardized protocols for targeted exams where dose is matched to indication/reason for exam; i.e. extremities or head) *Use of iterative reconstruction technique DLP: 1055 mGy-cm FINDINGS: Head: There is no evidence of acute intracranial hemorrhage or territorial infarction. No abnormal mass effect or midline shift is seen. Bernardo to white matter differentiation is well preserved. No extra-axial fluid collections are identified. No hydrocephalus. No significant volume loss. There is no abnormal attenuation within the brain parenchyma. No acute osseous or soft tissue abnormality. The mastoid air cells and visualized portions of the paranasal sinuses are well aerated. Cervical spine: There is anatomic alignment of the vertebral bodies and posterior elements. The atlantoaxial and atlantooccipital articulations are intact. Vertebral body heights and intervertebral disc spaces are maintained. No evidence of acute fracture. No prevertebral soft tissue swelling. Bilateral carotid bulb calcifications. Visualized portions of the lung apices are unremarkable. The thyroid gland is unremarkable. CT/CT cervical spine wo IV con IMPRESSION: * No acute intracranial bleed or territorial infarction. * No acute fracture or malalignment of the cervical spine.
--- NOTE | ~2022-11-03 | CT_ITS ---
EXAMINATION: NONCONTRAST HEAD CT NONCONTRAST CERVICAL SPINE CT INDICATION INFORMATION: Syncope COMPARISON: None TECHNIQUE: Separate noncontrast CT examinations of the head and cervical spine were performed. Coronal and sagittal images were created for each examination at the technologist workstation. This CT examination was performed using dose optimization techniques as appropriate, variously including the following: *Automated exposure control *Adjustment of mA and/or kV according to patient size (this includes techniques or standardized protocols for targeted exams where dose is matched to indication/reason for exam; i.e. extremities or head) *Use of iterative reconstruction technique DLP: 1055 mGy-cm FINDINGS: Head: There is no evidence of acute intracranial hemorrhage or territorial infarction. No abnormal mass effect or midline shift is seen. Bernardo to white matter differentiation is well preserved. No extra-axial fluid collections are identified. No hydrocephalus. No significant volume loss. There is no abnormal attenuation within the brain parenchyma. No acute osseous or soft tissue abnormality. The mastoid air cells and visualized portions of the paranasal sinuses are well aerated. Cervical spine: There is anatomic alignment of the vertebral bodies and posterior elements. The atlantoaxial and atlantooccipital articulations are intact. Vertebral body heights and intervertebral disc spaces are maintained. No evidence of acute fracture. No prevertebral soft tissue swelling. Bilateral carotid bulb calcifications. Visualized portions of the lung apices are unremarkable. The thyroid gland is unremarkable. CT/CT head/brain wo IV con IMPRESSION: * No acute intracranial bleed or territorial infarction. * No acute fracture or malalignment of the cervical spine.
[2022-11-03] MEDS: 0.9 % Sodium Chloride 1,000 ML 999 ML IV ×2 (04:29→06:43)
--- NOTE | 2022-11-03 04:31 | ED_ITS ---
HPI - Syncope General Chief Complaint: Syncope Stated Complaint: SYNCOPE Time Seen by Provider: 11/03/22 04:19 Source: patient and EMS Mode of arrival: EMS Limitations: no limitations History of Present Illness HPI narrative: 47-year-old male came in by ambulance after had syncopal episode. Patient for the past 2 days been having generalized weakness decreased p.o. intake and patient claimed that he lost few lb in the last couple days, patient also been having left-sided chest pain that is been intermittent localized to the left chest area with no radiation or difficulty breathing no aggravating factor, no relieving factor pain is not exertional in nature. tonight he got out of bed trying to go to the bathroom, do not remember what happened when he woke up found himself on the floor complaining of neck pain and generalized weakness, patient is known to have anemia but declined any active bleeding in the stool or rectally. Patient stated lately he is feeling depressed with decreased p.o. intake but no SI or HI. No shortness of breath, no lower extremities edema, no abdominal pain, no nausea, no vomiting, no diarrhea. Past medical history significant for congestive heart failure, hypertension patient take metoprolol to control his blood pressure patient initially in the emergency department found to be hypotensive. Related Data Home Medications Medication Instructions Recorded Confirmed albuterol sulfate 90 mcg/actuation 2 puff inhalation Q6H 08/01/22 10/06/22 aerosol inhaler escitalopram oxalate 10 mg tablet 10 mg PO DAILY 08/01/22 10/06/22 insulin lispro 100 unit/mL See Rx Instructions .Route .COMPLEX 08/01/22 10/06/22 subcutaneous solution trazodone 50 mg tablet 50 mg PO BEDTIME 08/01/22 10/06/22 umeclidinium 62.5 mcg-vilanterol 1 inh inhalation DAILY 09/07/22 10/06/22 25 mcg/actuation powdr for inhalation (Anoro Ellipta) aspirin 81 mg tablet,delayed 81 mg PO DAILY 10/06/22 10/06/22 release atorvastatin 40 mg tablet 40 mg PO DAILY 10/06/22 10/06/22 gabapentin 300 mg capsule 300 mg PO TID 10/06/22 10/06/22 lisinopril 40 mg tablet 40 mg PO DAILY 10/06/22 10/06/22 metoprolol succinate 100 mg 100 mg PO DAILY 10/06/22 10/06/22 tablet,extended release 24 hr omeprazole 40 mg capsule,delayed 40 mg PO DAILY 10/06/22 10/06/22 release Previous Rx's Medication Instructions Recorded amlodipine 10 mg tablet 10 mg PO DAILY 30 days #30 tabs 08/07/22 ipratropium 0.5 mg-albuterol 3 mg 3 ml inhalation Q8H 30 days #180 mL 08/07/22 (2.5 mg base)/3 mL nebulization soln nicotine 21 mg/24 hr daily 21 mg transdermal DAILY 30 days 08/07/22 transdermal patch #28 ea hydralazine 50 mg tablet 50 mg PO TID #90 tabs 08/13/22 furosemide 40 mg tablet 40 mg PO DAILY #30 tabs 08/20/22 magnesium oxide 400 mg (241.3 mg 400 mg PO BIDPC #60 tabs 08/20/22 magnesium) tablet nicotine (polacrilex) 2 mg gum 2 mg buccal Q1H PRN nicotini 08/20/22 cravingz #100 ea sucralfate 1 gram tablet 1 g PO QIDACHS #120 tabs 09/10/22 Allergies Allergy/AdvReac Type Severity Reaction Status Date / Time dulaglutide [From [facility]] Allergy Unknown Verified 10/06/22 14:42 metformin [METFORMIN] AdvReac Mild DIARRHEA, Verified 10/06/22 14:42 nausea and vomiting Review of Systems Review of Systems: All other systems are reviewed and are negative Constitutional: Reports as per HPI and Reports no additional constitutional complaints Eyes: Reports as per HPI and Reports no additional eye complaints Reports system reviewed and no additional complaints, except as documented Cardiovascular: Reports as per HPI and Reports no additional cardiovascular complaints Respiratory: Reports as per HPI and Reports no additional respiratory complaints Gastrointestinal: Reports as per HPI and Reports no additional gastrointestinal complaints Genitourinary: Reports no additional female genitourinary complaints Musculoskeletal: Reports no additional musculoskeletal complaints Skin/Breast: Reports system reviewed and no additional complaints, except as docu Psychiatric: Reports no additional psychiatric complaints Endocrine: Reports no additional endocrine complaints Hematologic/Lymphatic: Reports no additional hematologic/lymphatic complaints Allergic/Immunologic: Reports no additional allergic/immunologic complaints Reports system reviewed and no additional complaints, except as documented and Reports Abnormal speech present [facility] Past Medical History Medical History Acute on chronic anemia Acute on chronic diastolic (congestive) heart failure Acute respiratory failure KELVIN (acute kidney injury) Anxiety Asthma CHF exacerbation Congestive heart failure Diabetes HLD (hyperlipidemia) HTN (hypertension) Hypercholesteremia Hyperglycemia due to type 2 diabetes mellitus Hypoxia YARELIS (obstructive sleep apnea) PAD (peripheral artery disease) Uncontrolled hypertension Surgical History S/P angiogram of extremity Family History Family History Father Alzheimer disease CAD (coronary artery disease) Social History Social History Household Members: Family Housing: Apartment Do you presently have visiting nurse or other home services: No Alcohol intake: current Alcohol intake frequency: a few times a month Alcohol type: hard liquor Patient Tobacco Use Status: Current everyday Tobacco user Tobacco use type: Cigarette Cigarettes Per Day: 10 Years Smoked: 30+/- e-Cigarette/Vaping Use: Never Used Second Hand Smoke Exposure: No Substance Use Type: Marijuana Advance Directives: Yes Advance Directives on File: Yes Advance Directives Date on File: 06/21/21 service: No Current occupational status: disabled Physical Exam Vital Signs: Vital Signs: Last Vital Signs Temp 97.1 F 11/03/22 05:27 Pulse 70 11/03/22 05:27 Resp 18 11/03/22 05:27 BP 115/61 11/03/22 05:27 Pulse Ox 96 11/03/22 05:27 O2 Del Method 11/03/22 03:54 BMI result Body Mass Index 20.4 Vital signs have been reviewed as appeared to be correct. Blood pressure Low. Heart rate normal. Respiration rate normal. Temperature normal. Oxygen saturation normal. Appearance: Alert. Oriented X3. No acute distress. Head: Normal external exam. Normocephalic. Atraumatic. No Thao signs noted. No raccoon eyes noted Eyes: PERRLA. EOMI. Conjunctiva and sclera normal. Eyelids normal. ENT: TM's Normal. Pharynx normal. Uvula midline. Moist mucous membranes. No trismus noted. No drooling noted. No muffled voice noted. Neck: Normal inspection. Neck supple. FROM. No adenopathy. Thyroid Normal. No meningeal signs. No neck mass noted. CVS: Normal heart rate and rhythm. Heart sound normal. No murmurs noted. Pulses normal throughout. Respiratory: No respiratory distress. Painless inspiration. Breath sounds normal. No wheezes/rales/rhonchi noted. Chest nontender. No accessory muscle usage noted or decreased air movement noted. Abdomen: Soft and nontender. Bowel sounds normal in all 4 quadrants. No distention noted. No organomegaly noted. No visible injury noted. Back: No CVA tenderness. Full range of motion noted. Skin: Skin warm and dry. Normal skin color. Normal skin turgor. No rashes/lesions/lacerations noted. Extremities: No lower extremity edema. Extremities exhibit normal range of motion. Extremities nontender. Neuro: Oriented X 3. Cranial nerve exam: II-XII are grossly intact No motor deficit. No sensory deficit. Reflexes normal. Course Course Course Narrative: 47-year-old male who presented to the ED after a syncopal episode patient found to be dehydrated with KELVIN patient has been feeling depressed with decreased p.o. intake and not drinking enough fluids patient lost few lb over the past week due to decreased p.o. intake no SI or HI, initially found to be hypotensive patient received 2 L of fluid with improvement of blood pressure will admit for further monitoring. Lactic acidosis due to dehydration. There is no source of infection Patient is unable to give urine sample yet. Medications Administered Generic Name Dose Route Start Last Admin Trade Name Freq PRN Reason Stop Dose Admin Sodium Chloride 1,000 mls @ 999 mls/hr 11/03/22 06:37 11/03/22 06:43 Ns IV 11/03/22 07:37 999 mls/hr .Q1H1M ONE Administration Discontinued Medications Generic Name Dose Route Start Last Admin Trade Name Freq PRN Reason Stop Dose Admin Sodium Chloride 1,000 mls @ 999 mls/hr 11/03/22 04:29 11/03/22 05:37 Ns IV 11/03/22 05:29 Infused .Q1H1M ONE Infusion Medical Decision Making Differential Diagnosis Differential Diagnoses: The differential diagnosis associated with the presentation includes ( Depression, dehydration, hypotension, sepsis, vasovagal, ACS.) Admission/Observation Consideration of admission/observation: Escalation of care including admission/observation considered Consult Healthcare Provider Management of the patient was discussed with: Hospitalist Lab Data MDM Lab Attestation statement: I reviewed the patient's lab results. Result Diagrams: 11/03/22 04:50 11/03/22 04:50 Labs: Lab Results 11/03/22 11/03/22 11/03/22 Range/Units 04:45 04:50 04:50 WBC 10.2 (4.8-10.8) X10*3/uL RBC 4.28 L (4.60-5.80) X10*6/uL Hgb 10.3 L (14.0-18.0) g/dl Hct 32.9 L (42.0-52.0) % MCV 76.9 L (80.0-98.0) fL MCH 24.1 L (27.0-33.0) pg MCHC 31.3 (31.0-36.0) g/dl RDW 17.0 H (11.0-16.0) % Plt Count 297 (160-400) X10*3/uL MPV 10.3 (9.4-12.4) fL Immature Gran % (Auto) 0.5 H (0.0-0.4) % Neut % (Auto) 66.3 (45-73) % Lymph % (Auto) 23.3 (20-40) % Marathon % (Auto) 8.2 (2-11) % Eos % (Auto) 1.3 (0-4) % Baso % (Auto) 0.4 (0-2) % Lymph # (Auto) 2.4 (1.2-4.9) X10*3/uL Marathon # (Auto) 0.8 (0.1-1.2) X10*3/uL Eos # (Auto) 0.1 (0.0-0.4) X10*3/uL Baso # (Auto) 0.0 (0.0-0.2) X10*3/uL Abs Immat Gran (auto) 0.05 H (0.00-0.03) X10*3/uL Absolute Neuts (auto) 6.8 (2.0-8.3) x10*3/uL Absolute Nucleated RBC 0.000 (0.0-0.012) X10*3/uL Nucleated RBC % (auto) 0.0 (0.0-0.2) /100WBC Sodium 142 (135-145) mmol/L Potassium 4.0 (3.3-5.1) mmol/L Chloride 112 H (96-108) mmol/L Carbon Dioxide 19 L (22-29) mmol/L Anion Gap 15 (12-20) BUN 25 H (9-16) mg/dL Creatinine 3.23 H (0.5-1.4) mg/dL Estim Creat Clear Calc 24.8 Estimated GFR 21 Random Glucose 137 H (60-115) mg/dL Lactic Acid (0.5-2.0) mmol/L Calcium 8.5 (8.4-10.2) mg/dL Total Bilirubin < 0.2 (0.0-1.0) mg/dL Direct Bilirubin < 0.2 (0.0-0.5) mg/dL AST 14 (5-37) U/L ALT 14 (0-40) U/L Alkaline Phosphatase 80 (39-117) U/L Troponin I High Sens (<3.5-35.0) ng/L B-Natriuretic Peptide (<100) pg/mL Total Protein 5.9 L (6.5-8.0) g/dL Albumin 3.5 (3.5-5.0) g/dL Lipase 60 (8-78) U/L Influenza Type A (PCR) NEGATIVE (Negative) Influenza Type B (PCR) NEGATIVE (Negative) RSV RNA Qual (PCR) NEGATIVE (Negative) SARS-CoV-2 RNA (RT-PCR) NEGATIVE (Negative) 11/03/22 11/03/22 11/03/22 Range/Units 04:50 04:50 04:51 WBC (4.8-10.8) X10*3/uL RBC (4.60-5.80) X10*6/uL Hgb (14.0-18.0) g/dl Hct (42.0-52.0) % MCV (80.0-98.0) fL MCH (27.0-33.0) pg MCHC (31.0-36.0) g/dl RDW (11.0-16.0) % Plt Count (160-400) X10*3/uL MPV (9.4-12.4) fL Immature Gran % (Auto) (0.0-0.4) % Neut % (Auto) (45-73) % Lymph % (Auto) (20-40) % Marathon % (Auto) (2-11) % Eos % (Auto) (0-4) % Baso % (Auto) (0-2) % Lymph # (Auto) (1.2-4.9) X10*3/uL Marathon # (Auto) (0.1-1.2) X10*3/uL Eos # (Auto) (0.0-0.4) X10*3/uL Baso # (Auto) (0.0-0.2) X10*3/uL Abs Immat Gran (auto) (0.00-0.03) X10*3/uL Absolute Neuts (auto) (2.0-8.3) x10*3/uL Absolute Nucleated RBC (0.0-0.012) X10*3/uL Nucleated RBC % (auto) (0.0-0.2) /100WBC Sodium (135-145) mmol/L Potassium (3.3-5.1) mmol/L Chloride (96-108) mmol/L Carbon Dioxide (22-29) mmol/L Anion Gap (12-20) BUN (9-16) mg/dL Creatinine (0.5-1.4) mg/dL Estim Creat Clear Calc Estimated GFR Random Glucose (60-115) mg/dL Lactic Acid 3.0 H* (0.5-2.0) mmol/L Calcium (8.4-10.2) mg/dL Total Bilirubin (0.0-1.0) mg/dL Direct Bilirubin (0.0-0.5) mg/dL AST (5-37) U/L ALT (0-40) U/L Alkaline Phosphatase (39-117) U/L Troponin I High Sens 11.0 D (<3.5-35.0) ng/L B-Natriuretic Peptide 155 H (<100) pg/mL Total Protein (6.5-8.0) g/dL Albumin (3.5-5.0) g/dL Lipase (8-78) U/L Influenza Type A (PCR) (Negative) Influenza Type B (PCR) (Negative) RSV RNA Qual (PCR) (Negative) SARS-CoV-2 RNA (RT-PCR) (Negative) Independent Interpretation I performed an independent interpretation of an: EKG ( Normal sinus rhythm at 67 beats per minute, slight QT prolongation, normal axis deviation.), Plain X- Ray ( Chest: No acute pathology.) and CT Scan ( Head/C-spine: No acute intracranial bleed /no acute cervical spine fracture.) Radiology Impression Discussion of test interpretation with radiology: I have reviewed the radiologist's reading. Discharge Plan Discharge Clinical Impression: Syncope, Acute kidney injury, Dehydration, Depression Patient Disposition: Admitted As Inpatient
[2022-11-03 04:58] LABS: MANUAL DIFF FLAG NO
[2022-11-03 04:59] LABS: Basophils Percent Auto 0.4 % (0-2); Eosinophils Absolute Auto 0.1 X10*3/uL (0.0-0.4); Eosinophils Percent Auto 1.3 % (0-4); Hematocrit 32.9 % (42.0-52.0); Hemoglobin 10.3 g/dl (14.0-18.0); Imm Gran Abs Auto 0.05 X10*3/uL (0.00-0.03); Imm Gran Pct Auto 0.5 % (0.0-0.4); Lymphocytes Absolute Auto 2.4 X10*3/uL (1.2-4.9); Lymphocytes Percent Auto 23.3 % (20-40); Mean Corpuscular HGB Conc 31.3 g/dl (31.0-36.0); Mean Corpuscular Hemoglobin 24.1 pg (27.0-33.0); Mean Corpuscular Volume 76.9 fL (80.0-98.0); Mean Platelet Volume 10.3 fL (9.4-12.4); Monocytes Absolute Auto 0.8 X10*3/uL (0.1-1.2); Monocytes Percent Auto 8.2 % (2-11); Neutrophils Absolute Auto 6.8 x10*3/uL (2.0-8.3); Neutrophils Percent Auto 66.3 % (45-73); Platelet Count 297 X10*3/uL (160-400); Red Blood Count 4.28 X10*6/uL (4.60-5.80); White Blood Count 10.2 X10*3/uL (4.8-10.8)
[2022-11-03 05:16] LABS: Alanine Aminotransferase 14 U/L (0-40); Albumin Level 3.5 g/dL (3.5-5.0); Alkaline Phosphatase 80 U/L (39-117); Anion Gap 15 (12-20); Aspartate Amino Transferase 14 U/L (5-37); Bilirubin Direct < 0.2 mg/dL (0.0-0.5); Bilirubin Total < 0.2 mg/dL (0.0-1.0); Blood Urea Nitrogen 25 mg/dL (9-16); Calcium 8.5 mg/dL (8.4-10.2); Carbon Dioxide 19 mmol/L (22-29); Chloride 112 mmol/L (96-108); Creatinine Clr Calc Pharmacy 24.8; Estimated Glomerular Filt Rate 21; Glucose Random 137 mg/dL (60-115); Lipase 60 U/L (8-78); Sodium 142 mmol/L (135-145); Total Protein 5.9 g/dL (6.5-8.0)
[2022-11-03 05:20] LABS: B Type Natriuretic Peptide 155 pg/mL (<100)
[2022-11-03 05:35] LABS: Influenza A PCR NEGATIVE (Negative); Influenza B PCR NEGATIVE (Negative); Resp Syncy Virus RNA Qual PCR NEGATIVE (Negative); SARS COV2 PCR INHOUSE NEGATIVE (Negative)
--- NOTE | 2022-11-03 06:30 | ECG_ITS ---
Test Reason : cp Blood Pressure : / mmHG Vent. Rate : 091 BPM Atrial Rate : 091 BPM P-R Int : 138 ms QRS Dur : 076 ms QT Int : 360 ms P-R-T Axes : 048 057 076 degrees QTc Int : 442 ms Normal sinus rhythm Nonspecific T wave abnormality Abnormal ECG When compared with ECG of 03-NOV-2022 03:54, Nonspecific T wave abnormality has replaced inverted T waves in Inferior leads Referred By: Omar Ortiz Electronically Signed By:JESSICA LY
[2022-11-03 06:57] LABS: Reflex Lactate? Lactic Acid Added
--- NOTE | 2022-11-03 08:49 | PHA.MEDREC ---
Pharmacy Consult ? Medication Reconciliation Pharmacy has completed the medication reconciliation. Patient stated taking only two inhalers: ventolin and anoro ellipta. Mentioned metformin, but has no claim history and pharmacy has no record of medication. Patient states using Omnipod insulin pump with insulin lispro. Pharmacy also states most recent amlodipine is 10mg daily.
--- NOTE | 2022-11-03 09:11 | PC.NURSE ---
Pt completed orthostatic vital signs with it noted when pt in standing position BP dropped from low 100s systolic to 80s systolic.
[2022-11-03 09:18] LABS: ~Lactic Acid-LAB USE ONLY 2.1 mmol/L (0.5-2.0)
[2022-11-03 09:29] LABS: Troponin-I High Sensitivity 8.4 ng/L (<3.5-35.0)
--- NOTE | 2022-11-03 09:42 | PM.IMHP ---
History of Present Illness Date of Service: 11/03/22 Chief Complaint: syncope The patient is a 47 yo M with a PMH as outlined below who presents to the ED after a syncopal episode. The patient does not recall the events that preceeded his syncope and the last thing he remembers is going to bed. He states that over the last several days, he has had generalized weakness and aches/pain. He reports left sided abodminal pain 2 days prior to admission which has resolved. He reports some nausea and a few episodes of loose stools over the last several days. He reports poor appetite and minimal oral intake. He reports taking his lasix during this time. He denies any urinary difficulty. He reprots subjective fevers and chills. He reports a sick contact (his mother, whom he lives with was sick with pneumonia during the [place]). He denies any active chest pain. He reports feeling depressed lately, but denies any SI/HI. 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 In the ED, work up reveals KELVIN with SCr of 3.23 (baseline in the normal range). He has relative hypotension and his orthostatic vitals are positive. While I was in the room with him, the patients glucose monitor detected low blood glucose of 68. He will be given breakfast and he has removed his inuslin pump. Review of Systems Review of Systems: Negative except HPI/interval history. [facility] Medical History Acute on chronic anemia Acute on chronic diastolic (congestive) heart failure Acute respiratory failure KELVIN (acute kidney injury) Anxiety Asthma CHF exacerbation Congestive heart failure Diabetes HLD (hyperlipidemia) HTN (hypertension) Hypercholesteremia Hyperglycemia due to type 2 diabetes mellitus Hypoxia YARELIS (obstructive sleep apnea) PAD (peripheral artery disease) Uncontrolled hypertension Family History Father Alzheimer disease CAD (coronary artery disease) Surgical History S/P angiogram of extremity Social History Household Members: Family Housing: Apartment Do you presently have visiting nurse or other home services: No Alcohol intake: current Alcohol intake frequency: a few times a month Alcohol type: hard liquor Patient Tobacco Use Status: Current everyday Tobacco user Tobacco use type: Cigarette Cigarettes Per Day: 10 Years Smoked: 30+/- Smoked in Last 30 Days: Yes e-Cigarette/Vaping Use: Never Used Patient Interested in Nicotine Replacement: Yes Patient Given Instructions on How to Stop Smoking: Yes Date Education Initiated: 11/03/22 Second Hand Smoke Exposure: No Use of substances other than those prescribed or required for medical reasons: Yes Substance Use Type: Marijuana Substance Use Frequency: Occasionally Currently Displaying Signs/Symptoms of Drug Intoxication Withdrawal: No Any prior treatment program specific to substance use: No Have you been hit, kicked, punched, or otherwise hurt by someone within the past year? If so, by whom?: No Do you feel safe in your current relationship?: Yes Is there a partner from a previous relationship who is making you feel unsafe now?: No Are you made to feel afraid or neglected: No Advance Directives: Yes Advance Directives on File: Yes Advance Directives Date on File: 06/21/21 Do you have thoughts of harming others: None Do you have a plan to hurt others: No Plan Recently lost weight without trying: Yes How much weight loss: 2-13 pounds Eating poorly because of decreased appetite: Yes Nutrition screen score: 4 Nutrition Risks: No Nutritional Risk Poor oral hygiene: No service: No Current occupational status: disabled Meds Allergies Allergy/AdvReac Type Severity Reaction Status Date / Time [facility] Allergy Unknown Verified 10/06/22 14:42 metformin [METFORMIN] AdvReac Mild DIARRHEA, Verified 10/06/22 14:42 nausea and vomiting Active Medications: Current Medications Acetaminophen (Acetaminophen 325 Mg Tablet) 650 mg PO Q6H PRN PRN Reason: Pain, Mild (Pain Scale 1-3) Aspirin (Aspirin Enteric Coated 81 Mg Tablet.) 81 mg PO DAILY [facility] Atorvastatin Calcium (Atorvastatin Calcium 40 Mg Tablet) 40 mg PO DAILY [facility] Escitalopram Oxalate (Escitalopram Oxalate 10 Mg Tablet) 10 mg PO DAILY [facility] Heparin Sodium (Porcine) (Heparin Sodium,Porcine 5,000 Unit/Ml Vial) 5,000 unit SUBCUT Q8H [facility] Lactated Ringer's (Lr) 1,000 mls @ 999 mls/hr IV .Q1H1M [facility] Stop: 11/03/22 10:45 Magnesium Oxide (Magnesium Oxide 400 Mg Tablet) 400 mg PO BIDPC [facility] Omeprazole (Omeprazole 40 Mg Capsule.Dr) 40 mg PO DAILY@0630 [facility] Ondansetron HCl (Ondansetron Hcl 4 Mg/2 Ml Vial) 4 mg IVPUSH Q8H PRN PRN Reason: Nausea and Vomiting Pharmacy Consult (Consult Rx Perform Med Rec) 1 each MISCELLANE ONCE PRN PRN Reason: Consult order Pharmacy Consult (Consult Rx Perform Med Rec) 1 each MISCELLANE ONCE PRN PRN Reason: Consult order Sodium Chloride (0.9 % Sodium Chloride Flush 3 Ml Syringe) 3 ml IVFLUSH QSHIFT [facility] Sucralfate (Sucralfate 1 Gm Tablet) 1 gm PO QIDACHS [facility] Trazodone HCl (Trazodone Hcl 50 Mg Tablet) 50 mg PO BEDTIME [facility] Home Medications Medication Instructions Recorded Confirmed Last Taken Type albuterol sulfate 90 mcg/actuation 2 puff inhalation Q6H PRN 08/01/22 11/03/22 Unknown History aerosol inhaler Shortness Of Breath Or Wheezing escitalopram oxalate 10 mg tablet 10 mg PO DAILY 08/01/22 11/03/22 11/02/22 History insulin lispro 100 unit/mL See Rx Instructions .Route .COMPLEX 08/01/22 11/03/22 11/02/22 History subcutaneous solution trazodone 50 mg tablet 50 mg PO BEDTIME 08/01/22 11/03/22 11/02/22 History umeclidinium 62.5 mcg-vilanterol 1 inh inhalation DAILY 09/07/22 11/03/22 11/02/22 History 25 mcg/actuation powdr for inhalation (Anoro Ellipta) aspirin 81 mg tablet,delayed 81 mg PO DAILY 10/06/22 11/03/22 11/02/22 History release atorvastatin 40 mg tablet 40 mg PO DAILY 10/06/22 11/03/22 11/02/22 History gabapentin 300 mg capsule 300 mg PO TID 10/06/22 11/03/22 11/02/22 History lisinopril 40 mg tablet 40 mg PO DAILY 10/06/22 11/03/22 11/02/22 History metoprolol succinate 100 mg 100 mg PO DAILY 10/06/22 11/03/22 11/02/22 History tablet,extended release 24 hr omeprazole 40 mg capsule,delayed 40 mg PO DAILY@0630 10/06/22 11/03/22 11/02/22 History release ipratropium 0.5 mg-albuterol 3 mg 3 ml inhalation Q8H PRN Shortness 11/03/22 11/03/22 Unknown History (2.5 mg base)/3 mL nebulization Of Breath Or Wheezing soln nicotine (polacrilex) 2 mg gum 2 mg buccal Q1H PRN Nicotine 11/03/22 11/03/22 Unknown History Cravings nicotine 21 mg/24 hr daily 21 mg transdermal DAILY PRN 11/03/22 11/03/22 Unknown History transdermal patch Nicotine Cravings Physical Exam Vital Signs and Narrative: Vital Signs: Last Vital Signs Temp 97.1 F 11/03/22 05:27 Pulse 76 11/03/22 09:05 Resp 18 11/03/22 05:27 BP 87/54 L 11/03/22 09:05 Pulse Ox 96 11/03/22 05:27 O2 Del Method 11/03/22 03:54 BMI result Body Mass Index 20.4 Const: Other: Constitutional - Awake and Alert, No apparent distress HEENT - PERRLA, EOMI, dry oral mucosa Cardiovascular - S1S2, RRR, No edema Respiratory - Normal lung expansion, Normal respiratory effort, No respiratory distress, CTA bilaterally Gastrointestinal - NT / ND; +BS; No rebound or guarding - No CVA tenderness Extremities - no calf tenderness bilaterally, no swelling Musculoskeletal - Normal inspection, normal ROM Skin - Warm/Dry Neurological - Alert & oriented x3, No focal deficit Psychological - Appropriate affect Results Labs CBC and Chem 7: 11/03/22 04:50 11/03/22 04:50 Labs: Laboratory Results - last 24 hr 11/03/22 11/03/22 11/03/22 04:45 04:50 04:50 MCV 76.9 L MCH 24.1 L MCHC 31.3 RDW 17.0 H Plt Count 297 MPV 10.3 Immature Gran % (Auto) 0.5 H Neut % (Auto) 66.3 Lymph % (Auto) 23.3 Carbon % (Auto) 8.2 Eos % (Auto) 1.3 Baso % (Auto) 0.4 Lymph # (Auto) 2.4 Carbon # (Auto) 0.8 Eos # (Auto) 0.1 Baso # (Auto) 0.0 Abs Immat Gran (auto) 0.05 H Absolute Neuts (auto) 6.8 Absolute Nucleated RBC 0.000 Nucleated RBC % (auto) 0.0 Anion Gap 15 Estim Creat Clear Calc 24.8 Estimated GFR 21 Random Glucose 137 H Lactic Acid Lactic Acid F/U @ 2Hr Calcium 8.5 Total Bilirubin < 0.2 Direct Bilirubin < 0.2 AST 14 ALT 14 Alkaline Phosphatase 80 Troponin I High Sens B-Natriuretic Peptide Total Protein 5.9 L Albumin 3.5 Lipase 60 Influenza Type A (PCR) NEGATIVE Influenza Type B (PCR) NEGATIVE RSV RNA Qual (PCR) NEGATIVE SARS-CoV-2 RNA (RT-PCR) NEGATIVE 11/03/22 11/03/22 11/03/22 04:50 04:50 04:51 MCV MCH MCHC RDW Plt Count MPV Immature Gran % (Auto) Neut % (Auto) Lymph % (Auto) Carbon % (Auto) Eos % (Auto) Baso % (Auto) Lymph # (Auto) Carbon # (Auto) Eos # (Auto) Baso # (Auto) Abs Immat Gran (auto) Absolute Neuts (auto) Absolute Nucleated RBC Nucleated RBC % (auto) Anion Gap Estim Creat Clear Calc Estimated GFR Random Glucose Lactic Acid 3.0 H* Lactic Acid F/U @ 2Hr Calcium Total Bilirubin Direct Bilirubin AST ALT Alkaline Phosphatase Troponin I High Sens 11.0 D B-Natriuretic Peptide 155 H Total Protein Albumin Lipase Influenza Type A (PCR) Influenza Type B (PCR) RSV RNA Qual (PCR) SARS-CoV-2 RNA (RT-PCR) 11/03/22 11/03/22 08:30 09:01 MCV MCH MCHC RDW Plt Count MPV Immature Gran % (Auto) Neut % (Auto) Lymph % (Auto) Carbon % (Auto) Eos % (Auto) Baso % (Auto) Lymph # (Auto) Carbon # (Auto) Eos # (Auto) Baso # (Auto) Abs Immat Gran (auto) Absolute Neuts (auto) Absolute Nucleated RBC Nucleated RBC % (auto) Anion Gap Estim Creat Clear Calc Estimated GFR Random Glucose Lactic Acid Lactic Acid F/U @ 2Hr 2.1 H* Calcium Total Bilirubin Direct Bilirubin AST ALT Alkaline Phosphatase Troponin I High Sens 8.4 B-Natriuretic Peptide Total Protein Albumin Lipase Influenza Type A (PCR) Influenza Type B (PCR) RSV RNA Qual (PCR) SARS-CoV-2 RNA (RT-PCR) Imaging Radiologist's Impressions: Impressions Cervical Spine CT 11/03/22 05:40 IMPRESSION: * No acute intracranial bleed or territorial infarction. * No acute fracture or malalignment of the cervical spine. Head CT 11/03/22 05:40 IMPRESSION: * No acute intracranial bleed or territorial infarction. * No acute fracture or malalignment of the cervical spine. Chest X-Ray 11/03/22 06:32 IMPRESSION: No acute pulmonary disease. Assessment and Plan (1) Dehydration: Status: Acute Plan 47 yo M with a PMH of IDDM, COPD with chronic resp failure on home O2 @ 2L, prior GI bleed due to esophagitis, HFpEF, YARELIS who presented to the ED with a syncopal episode. He reports several days of malaise preceding this. Work up in the ED reveals KELVIN and orthostatic hypotension. He will be admitted for further work up and treatment. 1. KELVIN SCr baseline in the normal range (0.99 in August 2022), now with SCr 3.23 Suspected secondary to hypovoluemia possibly due to GI illness and continual use of diuretics at home Given 2L IVF in the ED, will give another L LR as he is still orthostatic and with relative hypotension check u/s to rule out obstruction consider nephrology consult if not improved i/o 2. Syncope suspected due to orthostatic hypotension has some T- wave inversions but trops are flat; monitor on tele repeat orthostatic vitals are hydration 3. Possible viral gastroenteritis reports nausea without vomiting and several episodes of diarrhea stool testing if further episodes monitor 4. DM remove insulin pump and use POC for now (sugars 68 while taking H&P) add sliding scale once sugars improve 5. Chronic HFpEF hold diuretics and antihypertensives 6. History of heavy alcohol use denies current heavy use -- endorses 2 drinks daily with last drink day [employer] no withdrawal symptoms at this time, monitor with ciwa 7. Acute lactic acidosis due to dehydration, no evidence of infection / severe sepsis at this time improving with fluids alone 8. T wave inversions on EKG denies current CP HS trop-I flat monitor on tele, repeat EKG DVT pptx, mechanical due to history of GI bleed Full Code Due to the patients significant KELVIN requiring IVF, frequent monitoring and possibly specialty consultation, I anticipate a medically necessary inpatient hospitalization which is likely to span at least 2 midnights. Time Spent With Patient Time: Total time managing care of this patient today ____ minutes. Quality Stroke Does the patient have a stroke diagnosis?: No VTE Prior VTE?: No VTE Risk Level:: Medical - moderate - high VTE Device Contraindication: Treatment Not Indicated VTE Drug Contraindication: N/A - Med Ordered
[2022-11-03] MEDS: Lactated Ringers 1,000 ML 999 ML IV (10:30)
[2022-11-03 10:32] LABS: Reflex Lactate? 2 Y
--- NOTE | 2022-11-03 10:59 | PC.NURSE ---
Have been looking for bladder scanner, still unable to find in hospital
[2022-11-03 11:13] LABS: ~Lactic Acid-LAB USE ONLY 2.2 mmol/L (0.5-2.0)
[2022-11-03] MEDS: Sucralfate 1 GM TABLET PO ×3 (11:46→20:22)
[2022-11-03 12:08] LABS: Glucose, Whole Blood 117 mg/dL (60-115)
[2022-11-03] MEDS: 0.9 % Sodium Chloride Flush 3 ML SYRINGE IVFLUSH ×2 (14:27→20:24)
[2022-11-03] MEDS: Nicotine 14 MG PATCH.TD24 TRANSDERMA (14:27)
[2022-11-03] MEDS: Lactated Ringers 1,000 ML 100 ML IVCONT (14:28)
[2022-11-03 15:56] LABS: Glucose, Whole Blood 188 mg/dL (60-115)
[2022-11-03] MEDS: Magnesium Oxide 400 MG TABLET PO (16:39)
[2022-11-03] MEDS: Insulin Lispro 100 UNIT/ML 3 ML VIAL SUBCUT ×2 (16:39→20:22)
[2022-11-03 16:58] LABS: Appearance Urine Clear; Color Urine Yellow; Glucose Urine UA Negative (Negative); Leukocyte Esterase Urine Negative (Negative); Nitrite Urine Negative (Negative); UMIC TRIGGER UACC YES; Urine Blood Negative (Negative); Urine Ketones Trace mg/dL (Negative); Urine Protein 100 (2+) mg/dL (Neg-Trace)
[2022-11-03 17:17] LABS: Bacteria Urine None Seen (None Seen); RBC Urine 0-2 /HPF (0-2); WBC Urine 0-5 /HPF (0-5)
[2022-11-03 19:17] LABS: Glucose, Whole Blood 176 mg/dL (60-115)
[2022-11-03] MEDS: traZODone HCL 50 MG TABLET PO (20:22)
[2022-11-04 03:52] VITALS: BP 178/54; PULSE 78; RESP 20; TEMP 36.6; O2SAT 96
[2022-11-04] MEDS: Omeprazole 40 MG CAPSULE.DR PO (05:20)
[2022-11-04 06:19] LABS: Hematocrit 31.1 % (42.0-52.0); Mean Corpuscular HGB Conc 32.2 g/dl (31.0-36.0); Mean Corpuscular Volume 77.8 fL (80.0-98.0); Mean Platelet Volume 10.5 fL (9.4-12.4); Platelet Count 279 X10*3/uL (160-400); Red Cell Distribution Width 17.2 % (11.0-16.0); White Blood Count 10.5 X10*3/uL (4.8-10.8)
[2022-11-04 06:34] LABS: Anion Gap 12 (12-20); Blood Urea Nitrogen 19 mg/dL (9-16); Calcium 8.7 mg/dL (8.4-10.2); Carbon Dioxide 21 mmol/L (22-29); Chloride 112 mmol/L (96-108); Estimated Glomerular Filt Rate > 60; Glucose Random 189 mg/dL (60-115); Potassium 4.3 mmol/L (3.3-5.1); Sodium 141 mmol/L (135-145)
[2022-11-04 06:36] LABS: Troponin-I High Sensitivity 6.1 ng/L (<3.5-35.0)
[2022-11-04 07:29] LABS: Glucose, Whole Blood 209 mg/dL (60-115)
[2022-11-04 08:00] VITALS: BP 196/78; PULSE 85; RESP 20; TEMP 36.8; O2SAT 96
[2022-11-04] MEDS: Metoprolol Succinate ER 100 MG TAB.ER.24H PO (09:10)
[2022-11-04] MEDS: Atorvastatin Calcium 40 MG TABLET PO (09:10)
[2022-11-04] MEDS: Escitalopram Oxalate 10 MG TABLET PO (09:10)
[2022-11-04] MEDS: amLODIPine Besylate 10 MG TABLET PO (09:10)
[2022-11-04] MEDS: Nicotine 14 MG PATCH.TD24 TRANSDERMA (09:10)
[2022-11-04] MEDS: Magnesium Oxide 400 MG TABLET PO ×2 (09:10→16:32)
[2022-11-04] MEDS: Sucralfate 1 GM TABLET PO ×4 (09:10→20:44)
[2022-11-04] MEDS: Insulin Lispro 100 UNIT/ML 3 ML VIAL SUBCUT ×3 (09:11→20:44)
[2022-11-04] MEDS: 0.9 % Sodium Chloride Flush 3 ML SYRINGE IVFLUSH ×2 (09:11→16:40)
--- NOTE | 2022-11-04 11:04 | PM.CNCAR ---
History of Present Illness History of Present Illness Date of Service: 11/04/22 Chief complaint: Syncope, weakness Narrative: This is a cardiology consultation regarding syncopal episode. In the last few days, he has apparently had some generalized weakness and aches and pains. Some nausea/loose stools. Poor appetite. Reduced oral intake. Had still taking Lasix. Apparently he went to bed okay but it seems that he tried to get up and somehow fell. Details are not very clear. No chest pain other cardiac symptoms. Currently back to normal self. Creatinine was quite high at more than 3 upon arrival but baseline was essentially normal range. Orthostatics were also positive. Subsequently, admitted for further care. He has undergone IV fluid hydration. Today, feels back to normal self. Some pleuritic-type chest discomfort at times. Otherwise feels okay. Blood pressure is going up again. In the ER, apparently had orthostasis as well. Review of Systems Review of Systems: Yes all other systems are reviewed and are negative Constitutional: Constitutional: Reports as per HPI Eyes: Eyes: Reports as per HPI ENT: Reports as per HPI Cardiovascular: Cardiovascular: Reports as per HPI, Denies acrocyanosis, Denies cool extremities, Denies chest pain, Denies leg edema, Reports lightheadedness, Reports Loss of Consciousness, Denies palpitations and Denies dyspnea Respiratory: Respiratory: Reports as per HPI, Reports no additional respiratory complaints and Denies dyspnea Gastrointestinal: Gastrointestinal: Reports as per HPI and Reports no additional gastrointestinal complaints Genitourinary: Genitourinary: Reports no additional male genitourinary complaints and Reports as per HPI Musculoskeletal: Musculoskeletal: Reports no additional musculoskeletal complaints and Reports as per HPI Integumentary/Breasts: Skin/Breast: Reports system reviewed and no additional complaints, except as docu Neurologic: Reports system reviewed and no additional complaints, except as documented and Reports as per HPI Psychiatric: Psychiatric: Reports no additional psychiatric complaints and Reports as per HPI Endocrine: Endocrine: Reports no additional endocrine complaints, Reports as per HPI and Denies palpitations Hematologic/Lymphatic: Hematologic/Lymphatic: Reports no additional hematologic/lymphatic complaints and Reports as per HPI Allergic/Immunologic: Allergic/Immunologic: Reports no additional allergic/immunologic complaints and Reports as per HPI [facility] Past Medical History Medical History Acute on chronic anemia Acute on chronic diastolic (congestive) heart failure Acute respiratory failure KELVIN (acute kidney injury) Anxiety Asthma CHF exacerbation Congestive heart failure Diabetes HLD (hyperlipidemia) HTN (hypertension) Hypercholesteremia Hyperglycemia due to type 2 diabetes mellitus Hypoxia YARELIS (obstructive sleep apnea) PAD (peripheral artery disease) Uncontrolled hypertension Family History Family History Father Alzheimer disease CAD (coronary artery disease) Surgical History Surgical History S/P angiogram of extremity Social History Social History Household Members: Family Housing: Apartment Do you presently have visiting nurse or other home services: No Alcohol intake: current Alcohol intake frequency: a few times a month Alcohol type: hard liquor Patient Tobacco Use Status: Current everyday Tobacco user Tobacco use type: Cigarette Cigarettes Per Day: 10 Years Smoked: 30+/- Smoked in Last 30 Days: Yes e-Cigarette/Vaping Use: Never Used Patient Interested in Nicotine Replacement: Yes Patient Given Instructions on How to Stop Smoking: Yes Date Education Initiated: 11/03/22 Second Hand Smoke Exposure: No Use of substances other than those prescribed or required for medical reasons: Yes Substance Use Type: Marijuana Substance Use Frequency: Occasionally Currently Displaying Signs/Symptoms of Drug Intoxication Withdrawal: No Any prior treatment program specific to substance use: No Have you been hit, kicked, punched, or otherwise hurt by someone within the past year? If so, by whom?: No Do you feel safe in your current relationship?: Yes Is there a partner from a previous relationship who is making you feel unsafe now?: No Are you made to feel afraid or neglected: No Advance Directives: Yes Advance Directives on File: Yes Advance Directives Date on File: 06/21/21 Do you have thoughts of harming others: None Do you have a plan to hurt others: No Plan Recently lost weight without trying: Yes How much weight loss: 2-13 pounds Eating poorly because of decreased appetite: Yes Nutrition screen score: 4 Nutrition Risks: No Nutritional Risk Poor oral hygiene: No service: No Current occupational status: disabled Meds Allergies Allergy/AdvReac Type Severity Reaction Status Date / Time dulaglutide [From Trulicity] Allergy Unknown Verified 10/06/22 14:42 metformin [METFORMIN] AdvReac Mild DIARRHEA, Verified 10/06/22 14:42 nausea and vomiting Active Medications: Current Medications Acetaminophen (Acetaminophen 325 Mg Tablet) 650 mg PO Q6H PRN PRN Reason: Pain, Mild (Pain Scale 1-3) Amlodipine Besylate (Amlodipine Besylate 10 Mg Tablet) 10 mg PO DAILY [facility]; Protocol Last Admin: 11/04/22 09:10 Dose: 10 mg Atorvastatin Calcium (Atorvastatin Calcium 40 Mg Tablet) 40 mg PO DAILY [facility] Last Admin: 11/04/22 09:10 Dose: 40 mg Albuterol Sulfate 2.5 mg/ (Ipratropium [place] 0.5 mg) 0 mg INHALE Q4H PRN PRN Reason: wheezing/shortness of braeth Last Admin: 11/03/22 14:51 Dose: 1 each Dextrose (Dextrose 50 % 25 Gm/50 Ml Syringe) 25 gm IVPUSH Q15M PRN; Protocol PRN Reason: per Hypoglycemia Standing Ord. Escitalopram Oxalate (Escitalopram Oxalate 10 Mg Tablet) 10 mg PO DAILY [facility] Last Admin: 11/04/22 09:10 Dose: 10 mg Glucose (Glucose Gel 15 Gm Gel..Gram.) 15 gm PO Q15M PRN; Protocol PRN Reason: per Hypoglycemia Standing Ord. Insulin Human Lispro (Insulin Lispro 100 Unit/Ml 3 Ml Vial) 0 unit SUBCUT QIDACHS [facility]; Protocol Last Admin: 11/04/22 09:11 Dose: 2 unit Magnesium Oxide (Magnesium Oxide 400 Mg Tablet) 400 mg PO BIDPC [facility] Last Admin: 11/04/22 09:10 Dose: 400 mg Metoprolol Succinate (Metoprolol Succinate Er 100 Mg Tab.Er.24h) 100 mg PO DAILY [facility]; Protocol Last Admin: 11/04/22 09:10 Dose: 100 mg Nicotine (Nicotine 14 Mg Patch.Td24) 14 mg TRANSDERMA DAILY [facility] Last Admin: 11/04/22 09:10 Dose: 14 mg Omeprazole (Omeprazole 40 Mg Capsule.Dr) 40 mg PO DAILY@0630 [facility] Last Admin: 11/04/22 05:20 Dose: 40 mg Ondansetron HCl (Ondansetron Hcl 4 Mg/2 Ml Vial) 4 mg IVPUSH Q8H PRN PRN Reason: Nausea and Vomiting Pharmacy Consult (Consult Rx Perform Med Rec) 1 each MISCELLANE ONCE PRN PRN Reason: Consult order Pharmacy Consult (Consult Rx Perform Med Rec) 1 each MISCELLANE ONCE PRN PRN Reason: Consult order Sodium Chloride (0.9 % Sodium Chloride Flush 3 Ml Syringe) 3 ml IVFLUSH QSHIFT [facility] Last Admin: 11/04/22 09:11 Dose: 3 ml Sucralfate (Sucralfate 1 Gm Tablet) 1 gm PO QIDACHS [facility] Last Admin: 11/04/22 09:10 Dose: 1 gm Trazodone HCl (Trazodone Hcl 50 Mg Tablet) 50 mg PO BEDTIME [facility] Last Admin: 11/03/22 20:22 Dose: 50 mg Home Medications Medication Instructions Recorded Confirmed Last Taken Type albuterol sulfate 90 mcg/actuation 2 puff inhalation Q6H PRN 08/01/22 11/03/22 Unknown History aerosol inhaler Shortness Of Breath Or Wheezing escitalopram oxalate 10 mg tablet 10 mg PO DAILY 08/01/22 11/03/22 11/02/22 History insulin lispro 100 unit/mL See Rx Instructions .Route .COMPLEX 08/01/22 11/03/22 11/02/22 History subcutaneous solution trazodone 50 mg tablet 50 mg PO BEDTIME 08/01/22 11/03/22 11/02/22 History umeclidinium 62.5 mcg-vilanterol 1 inh inhalation DAILY 09/07/22 11/03/22 11/02/22 History 25 mcg/actuation powdr for inhalation (Anoro Ellipta) aspirin 81 mg tablet,delayed 81 mg PO DAILY 10/06/22 11/03/22 11/02/22 History release atorvastatin 40 mg tablet 40 mg PO DAILY 10/06/22 11/03/22 11/02/22 History gabapentin 300 mg capsule 300 mg PO TID 10/06/22 11/03/22 11/02/22 History lisinopril 40 mg tablet 40 mg PO DAILY 10/06/22 11/03/22 11/02/22 History metoprolol succinate 100 mg 100 mg PO DAILY 10/06/22 11/03/22 11/02/22 History tablet,extended release 24 hr omeprazole 40 mg capsule,delayed 40 mg PO DAILY@0630 10/06/22 11/03/22 11/02/22 History release ipratropium 0.5 mg-albuterol 3 mg 3 ml inhalation Q8H PRN Shortness 11/03/22 11/03/22 Unknown History (2.5 mg base)/3 mL nebulization Of Breath Or Wheezing soln nicotine (polacrilex) 2 mg gum 2 mg buccal Q1H PRN Nicotine 11/03/22 11/03/22 Unknown History Cravings nicotine 21 mg/24 hr daily 21 mg transdermal DAILY PRN 11/03/22 11/03/22 Unknown History transdermal patch Nicotine Cravings Physical Exam Vital Signs: Vital Signs: Last Vital Signs Temp 98.2 F 11/04/22 08:00 Pulse 85 11/04/22 08:00 Resp 20 11/04/22 08:00 BP 196/78 H 11/04/22 08:00 Pulse Ox 96 11/04/22 08:00 O2 Del Method 11/04/22 08:00 BMI result Body Mass Index 22.6 Const: General: comfortable and no acute distress Orientation/consciousness: patient oriented x3 HEENT: Other: Unremarkable Head: Yes normal to inspection Neck: Neck: Yes normal visual inspection Chest: Chest palpation & inspection: normal inspection of the chest Resp: Auscultation: clear to auscultation bilaterally Cardio: Palpation: normal PMI Heart sounds: S1 normal heart sound present, S2 normal heart sound present, no gallops, no murmurs and no rubs GI: Palpation (GI): Soft to palpation Back/Spine/Pelvis: Other: unremarkable Skin: General skin exam: no rashes or lesions noted Neuro: General: patient oriented x3 Extrem: General: Yes normal to inspection Psych: Mental Status: mental status grossly normal Objective Labs and Meds 11/04/22 05:58 11/04/22 05:58 Lab results: Laboratory Results - last 24 hr 11/03/22 11/03/22 11/03/22 10:54 12:04 15:21 WBC RBC Hgb Hct MCV MCH MCHC RDW Plt Count MPV Absolute Nucleated RBC Nucleated RBC % (auto) Sodium Potassium Chloride Carbon Dioxide Anion Gap BUN Creatinine Estim Creat Clear Calc Estimated GFR POC Glucose 117 H 188 H Random Glucose Lactic Acid F/U @ 4Hr 2.2 H* Calcium Troponin I High Sens Urine Color Urine Appearance Urine pH Ur Specific Duff Urine Protein Urine Glucose (UA) Urine Ketones Urine Blood Urine Nitrite Ur Leukocyte Esterase Urine RBC Urine WBC Ur Squamous Epith Cells Urine Bacteria Hyaline Casts 11/03/22 11/03/22 11/04/22 16:15 19:13 05:58 WBC 10.5 RBC 4.00 L Hgb 10.0 L Hct 31.1 L MCV 77.8 L MCH 25.0 L MCHC 32.2 RDW 17.2 H Plt Count 279 MPV 10.5 Absolute Nucleated RBC 0.000 Nucleated RBC % (auto) 0.0 Sodium Potassium Chloride Carbon Dioxide Anion Gap BUN Creatinine Estim Creat Clear Calc Estimated GFR POC Glucose 176 H Random Glucose Lactic Acid F/U @ 4Hr Calcium Troponin I High Sens Urine Color Yellow Urine Appearance Clear Urine pH 5.0 Ur Specific Duff 1.020 Urine Protein 100 (2+) H Urine Glucose (UA) Negative Urine Ketones Trace Urine Blood Negative Urine Nitrite Negative Ur Leukocyte Esterase Negative Urine RBC 0-2 Urine WBC 0-5 Ur Squamous Epith Cells 3-5 Urine Bacteria None Seen Hyaline Casts 11-20 11/04/22 11/04/22 11/04/22 05:58 05:58 07:26 WBC RBC Hgb Hct MCV MCH MCHC RDW Plt Count MPV Absolute Nucleated RBC Nucleated RBC % (auto) Sodium 141 Potassium 4.3 Chloride 112 H Carbon Dioxide 21 L Anion Gap 12 BUN 19 H Creatinine 1.23 Estim Creat Clear Calc 72.0 Estimated GFR > 60 POC Glucose 209 H Random Glucose 189 H Lactic Acid F/U @ 4Hr Calcium 8.7 Troponin I High Sens 6.1 Urine Color Urine Appearance Urine pH Ur Specific Duff Urine Protein Urine Glucose (UA) Urine Ketones Urine Blood Urine Nitrite Ur Leukocyte Esterase Urine RBC Urine WBC Ur Squamous Epith Cells Urine Bacteria Hyaline Casts ECG Interpretation: EKG with sinus rhythm at 91/Min; nonspecific ST-T changes; normal NE and corrected QT. Assessment and Plan (1) Syncope: Status: Acute (2) Dehydration: Status: Acute (3) KELVIN (acute kidney injury): Status: Acute (4) Chronic heart failure with preserved ejection fraction (HFpEF): Status: Acute (5) HTN (hypertension): Status: Acute (6) YARELIS (obstructive sleep apnea): Status: Acute Plan Echocardiogram with LVEF 60-60%. Advanced diastolic dysfunction. Otherwise unremarkable. High sensitivity troponins unremarkable. Cardiac BNP 155. Close to his baseline. Creatinine was 3.23 upon arrival. Today it is 1.23. In August, it was 1.1. Prior to that, it has been slightly high but not too high. Overall, probably dehydration leading to renal failure and syncope. Doubt anything acutely cardiac. Telemetry is unremarkable. Slowly resume his Lasix as well as blood pressure medications. Outpatient management of sleep apnea. Follow-up in clinic. Discussed with Veronica Sinclair. Time Spent With Patient Time: Total time managing care of this patient today 70 minutes. Procedures Date of Service Date of Service: 11/04/22
[2022-11-04 11:52] LABS: Glucose, Whole Blood 136 mg/dL (60-115)
[2022-11-04 11:53] VITALS: BP 176/84; PULSE 79; RESP 20; TEMP 36.6; O2SAT 96
--- NOTE | 2022-11-04 12:42 | MHC.CM.PN ---
met with pt who lives with mother pt is covid vax x 3 has own ride home dc plan carolinee no servaraceliis
--- NOTE | 2022-11-04 13:22 | MHC.CLN ---
RE: CONSULT FOR WT LOSS CURRENT WT 69.4KG PREVIOUS WT HX 62.6KG (09/2021) PT WITH WT GAIN X 1 YEAR, NO SIGNIFICANT CHANGES IN WT AT THIS TIME RECOMMEND ADDING 2GM NA TO CURRENT DIET R/T DX CHF MONITOR PO INTAKE
[2022-11-04 15:27] VITALS: BP 181/79; PULSE 78; RESP 18; TEMP 37.1; O2SAT 94
[2022-11-04 16:30] LABS: Glucose, Whole Blood 217 mg/dL (60-115)
--- NOTE | 2022-11-04 18:04 | HO.PM.IMPN ---
Subjective Subjective Date of Service: 11/04/22 Interval History: seen and evaluated this morning follow up for KELVIN feeling better today, but still weak and tired Review of Systems Review of Systems: Yes all other systems are reviewed and are negative Constitutional Constitutional: Denies chills and Denies fever(s) ENT Ears, Nose, Mouth, and Throat: Denies dizziness Cardiovascular Cardiovascular: Denies chest pain, Denies palpitations and Denies dyspnea Respiratory Respiratory: Denies cough and Denies dyspnea Gastrointestinal Gastrointestinal: Denies abdominal pain Neurologic Neurologic: Denies dizziness Endocrine Endocrine: Denies palpitations Physical Exam Vital Signs: Vital Signs: Last Vital Signs Temp 98.7 F 11/04/22 15:27 Pulse 78 11/04/22 15:27 Resp 18 11/04/22 15:27 BP 181/79 H 11/04/22 15:27 Pulse Ox 94 11/04/22 15:27 O2 Del Method 11/04/22 15:27 BMI result Body Mass Index 22.6 Const: General: cooperative, comfortable, alert and awake Nutritional Appearance: average body habitus Orientation/consciousness: patient oriented x3 Resp: Effort & Inspection: normal respiratory effort and able to speak in complete sentences Auscultation: clear to auscultation bilaterally Cardio: Rate: regular rate Heart sounds: S1 normal heart sound present and S2 normal heart sound present GI: Inspection: No distended Palpation (GI): Soft to palpation and nontender Neuro: General: patient oriented x3 and CN's II-XI intact bilaterally Extrem: General: Yes no pedal edema Objective Data Active Medications Acetaminophen (Acetaminophen 325 Mg Tablet) 650 mg PO Q6H PRN PRN Reason: Pain, Mild (Pain Scale 1-3) Amlodipine Besylate (Amlodipine Besylate 10 Mg Tablet) 10 mg PO DAILY [facility]; Protocol Last Admin: 11/04/22 09:10 Dose: 10 mg Documented By: INES Atorvastatin Calcium (Atorvastatin Calcium 40 Mg Tablet) 40 mg PO DAILY [facility] Last Admin: 11/04/22 09:10 Dose: 40 mg Documented By: INES Albuterol Sulfate 2.5 mg/ (Ipratropium [place] 0.5 mg) 0 mg INHALE Q4H PRN PRN Reason: wheezing/shortness of braeth Last Admin: 11/03/22 14:51 Dose: 1 each Documented By: MAYCOL Dextrose (Dextrose 50 % 25 Gm/50 Ml Syringe) 25 gm IVPUSH Q15M PRN; Protocol PRN Reason: per Hypoglycemia Standing Ord. Escitalopram Oxalate (Escitalopram Oxalate 10 Mg Tablet) 10 mg PO DAILY [facility] Last Admin: 11/04/22 09:10 Dose: 10 mg Documented By: INES Glucose (Glucose Gel 15 Gm Gel..Gram.) 15 gm PO Q15M PRN; Protocol PRN Reason: per Hypoglycemia Standing Ord. Insulin Human Lispro (Insulin Lispro 100 Unit/Ml 3 Ml Vial) 0 unit SUBCUT [facility]; Protocol Last Admin: 11/04/22 16:31 Dose: 4 unit Documented By: SHANTE Magnesium Oxide (Magnesium Oxide 400 Mg Tablet) 400 mg PO BIDPC [facility] Last Admin: 11/04/22 16:32 Dose: 400 mg Documented By: SHANTE Metoprolol Succinate (Metoprolol Succinate Er 100 Mg Tab.Er.24h) 100 mg PO DAILY [facility]; Protocol Last Admin: 11/04/22 09:10 Dose: 100 mg Documented By: INES Nicotine (Nicotine 14 Mg Patch.Td24) 14 mg TRANSDERMA DAILY [facility] Last Admin: 11/04/22 09:10 Dose: 14 mg Documented By: INES Omeprazole (Omeprazole 40 Mg Capsule.Dr) 40 mg PO DAILY@0630 [facility] Last Admin: 11/04/22 05:20 Dose: 40 mg Documented By: ANDREW Ondansetron HCl (Ondansetron Hcl 4 Mg/2 Ml Vial) 4 mg IVPUSH Q8H PRN PRN Reason: Nausea and Vomiting Pharmacy Consult (Consult Rx Perform Med Rec) 1 each MISCELLANE ONCE PRN PRN Reason: Consult order Pharmacy Consult (Consult Rx Perform Med Rec) 1 each MISCELLANE ONCE PRN PRN Reason: Consult order Sodium Chloride (0.9 % Sodium Chloride Flush 3 Ml Syringe) 3 ml IVFLUSH [facility] Last Admin: 11/04/22 16:40 Dose: 3 ml Documented By: SHANTE Sucralfate (Sucralfate 1 Gm Tablet) [facility] Last Admin: 11/04/22 16:31 Dose: 1 gm Documented By: SHANTE Trazodone HCl (Trazodone Hcl 50 Mg Tablet) 50 mg PO BEDTIME [facility] Last Admin: 11/03/22 20:22 Dose: 50 mg Documented By: ANDREW Labs 11/04/22 05:58 11/04/22 05:58 Labs: Laboratory Results - last 24 hr 11/03/22 11/04/22 11/04/22 19:13 05:58 05:58 MCV 77.8 L MCH 25.0 L MCHC 32.2 RDW 17.2 H Plt Count 279 MPV 10.5 Absolute Nucleated RBC 0.000 Nucleated RBC % (auto) 0.0 Anion Gap 12 Estim Creat Clear Calc 72.0 Estimated GFR > 60 POC Glucose 176 H Random Glucose 189 H Calcium 8.7 Troponin I High Sens 11/04/22 11/04/22 11/04/22 05:58 07:26 11:50 MCV MCH MCHC RDW Plt Count MPV Absolute Nucleated RBC Nucleated RBC % (auto) Anion Gap Estim Creat Clear Calc Estimated GFR POC Glucose 209 H 136 H Random Glucose Calcium Troponin I High Sens 6.1 11/04/22 16:26 MCV MCH MCHC RDW Plt Count MPV Absolute Nucleated RBC Nucleated RBC % (auto) Anion Gap Estim Creat Clear Calc Estimated GFR POC Glucose 217 H Random Glucose Calcium Troponin I High Sens Microbiology Microbiology Results: Microbiology 11/03/22 04:50 Blood Culture - Preliminary Blood - Venous No growth after 24 hours. 11/03/22 04:50 Blood Culture - Preliminary Blood - Venous No growth after 24 hours. Assessment and Plan (1) Dehydration: Status: Acute (2) KELVIN (acute kidney injury): Status: Acute Plan 47 yo M with a PMH of IDDM, COPD with chronic resp failure on home O2 @ 2L, prior GI bleed due to esophagitis, HFpEF, YARELIS who presented to the ED with a syncopal episode. He reports several days of malaise preceding this. Work up in the ED reveals KELVIN and orthostatic hypotension. He will be admitted for further work up and treatment. 1. KELVIN SCr baseline in the normal range (0.99 in August 2022), SCr 3.23 on admission, now down to 1.23 Suspected secondary to hypovoluemia possibly due to GI illness and continual use of diuretics at home renal US negative for obstruction 2. Syncope suspected due to orthostatic hypotension no adverse events on telemetry seen by cardiology, likely related to dehydration, no further work up requried 3. Possible viral gastroenteritis reports nausea without vomiting and several episodes of diarrhea no further episodes 4. DM remove insulin pump and use POC for now add sliding scale once sugars improve 5. Chronic HFpEF hold diuretics 6. History of heavy alcohol use denies current heavy use -- endorses 2 drinks daily with last drink day [employer] no withdrawal symptoms at this time, monitor with ciwa 7. Acute lactic acidosis due to dehydration, no evidence of infection / severe sepsis at this time improving with fluids alone 8. T wave inversions on EKG denies current CP HS trop-I flat monitor on tele seen by cardiology, no further work up 9. HTN. bp low on admission and home meds held bp now high, will resume norvasc, metoprolol and hydralazine lasix and lisinopril on hold for kelvin/dehydration; resume as renal function improves tobacco dependece smoking cessation advised DVT pptx, mechanical due to history of GI bleed Full Code attending - dr. pulido requires ongoing inpatient hospitalization for monitoring of blood pressure, renal function Time Spent With Patient Time: Total time managing care of this patient today ____ minutes. Quality Stroke Does the patient have a stroke diagnosis?: No VTE Prior VTE?: No VTE Risk Level:: Medical - moderate - high VTE Device Contraindication: Treatment Not Indicated VTE Drug Contraindication: N/A - Med Ordered
[2022-11-04] MEDS: hydrALAZINE HCl 50 MG TABLET PO (18:20)
[2022-11-04 19:20] VITALS: BP 164/84; PULSE 72; RESP 76; TEMP 37.1; O2SAT 96
[2022-11-04 20:39] LABS: Glucose, Whole Blood 190 mg/dL (60-115)
[2022-11-04] MEDS: traZODone HCL 50 MG TABLET PO (20:44)
[2022-11-04 23:36] VITALS: BP 169/66; PULSE 78; RESP 15; TEMP 37; O2SAT 95
[2022-11-05 03:56] VITALS: BP 174/68; PULSE 74; RESP 15; TEMP 36.1; O2SAT 97
[2022-11-05] MEDS: Omeprazole 40 MG CAPSULE.DR PO (05:34)
[2022-11-05] MEDS: Acetaminophen 325 MG TABLET 650 MG PO (06:24)
[2022-11-05 06:36] LABS: Anion Gap 13 (12-20); Blood Urea Nitrogen 13 mg/dL (9-16); Calcium 9.2 mg/dL (8.4-10.2); Carbon Dioxide 22 mmol/L (22-29); Chloride 107 mmol/L (96-108); Creatinine Clr Calc Pharmacy 87.7; Estimated Glomerular Filt Rate > 60; Glucose Random 280 mg/dL (60-115); Potassium 4.4 mmol/L (3.3-5.1); Sodium 138 mmol/L (135-145)
[2022-11-05 07:43] LABS: Glucose, Whole Blood 233 mg/dL (60-115)
[2022-11-05] MEDS: Insulin Lispro 100 UNIT/ML 3 ML VIAL SUBCUT (07:56)
[2022-11-05] MEDS: Nicotine 14 MG PATCH.TD24 TRANSDERMA (07:56)
[2022-11-05] MEDS: amLODIPine Besylate 10 MG TABLET PO (07:57)
[2022-11-05] MEDS: Magnesium Oxide 400 MG TABLET PO (07:57)
[2022-11-05] MEDS: hydrALAZINE HCl 50 MG TABLET PO (07:57)
[2022-11-05] MEDS: Atorvastatin Calcium 40 MG TABLET PO (07:57)
[2022-11-05] MEDS: Escitalopram Oxalate 10 MG TABLET PO (07:57)
[2022-11-05] MEDS: Sucralfate 1 GM TABLET PO (07:57)
[2022-11-05] MEDS: Metoprolol Succinate ER 100 MG TAB.ER.24H PO (07:58)
[2022-11-05] MEDS: 0.9 % Sodium Chloride Flush 3 ML SYRINGE IVFLUSH (07:58)
[2022-11-05 08:00] VITALS: BP 172/77; PULSE 67; RESP 18; TEMP 36.7; O2SAT 98
--- NOTE | 2022-11-05 09:31 | P.DS_ITS ---
DS: Providers Provider Date of Service: 11/05/22 Date of admission: 11/03/22 09:38 Primary care physician: Zari Henry MD Consults: 11/03/22 18:45 Consult to Cardiology Routine Consulting Provider: Donaldo Armas Reason for consultation: T-wave inversions Has provider been notified: No [facility]: Uniqeu Rey DS: Diagnosis Discharge Diagnosis (1) Dehydration: Status: Acute (2) KELVIN (acute kidney injury): Status: Acute DS: Summary Hospital Course Hospital Course: HP as per admitting provider The patient is a 47 yo M with a PMH as outlined below who presents to the ED after a syncopal episode. The patient does not recall the events that preceeded his syncope and the last thing he remembers is going to bed. He states that over the last several days, he has had generalized weakness and aches/pain. He reports left sided abodminal pain 2 days prior to admission which has resolved. He reports some nausea and a few episodes of loose stools over the last several days. He reports poor appetite and minimal oral intake. He reports taking his lasix during this time. He denies any urinary difficulty. He reprots subjective fevers and chills. He reports a sick contact (his mother, whom he lives with was sick with pneumonia during the ). He denies any active chest pain. He reports feeling depressed lately, but denies any SI/HI. 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 In the ED, work up reveals KELVIN with SCr of 3.23 (baseline in the normal range). He has relative hypotension and his orthostatic vitals are positive. While I was in the room with him, the patients glucose monitor detected low blood glucose of 68. He will be given breakfast and he has removed his inuslin pump . KELVIN. Resolved SCr baseline in the normal range (0.99 in August 2022), SCr 3.23 on admission, now down to 1.23 Secondary to hypovolemia due to GI illness and continual use of diuretics at home renal US negative for obstruction Syncope due to orthostatic hypotension no adverse events on telemetry seen by cardiology, likely related to dehydration, no further work up requried Possible viral gastroenteritis. Resolved reports nausea without vomiting and several episodes of diarrhea no further episodes DM 2 remove insulin pump and use POC for now add sliding scale once sugars improve Chronic HFpEF hold diuretics, continue on 11/07/21 History of heavy alcohol use denies current heavy use -- endorses 2 drinks daily with last drink day [employer] no withdrawal symptoms Acute lactic acidosis due to dehydration, no evidence of infection / severe sepsis at this time treated with fluids T wave inversions on EKG denies current CP HS trop-I flat monitor on tele seen by cardiology, no further work up HTN. bp low on admission and home meds held bp now high, will resume norvasc, metoprolol, hydralazine and lisinopril tobacco dependece smoking cessation advised Time Spent with Patient Time attestation: Total time managing care of this patient today ____ minutes. Discharge coordination time: Greater than 30 minutes Quality: Safe Use of Opioids Does Pt have an Active Cancer Diagnosis on the Problem List?: No Quality: Stroke Does the patient have a stroke diagnosis?: No Physical Exam Vital Signs: Vital Signs: Last Vital Signs Temp 98.0 F 11/05/22 08:00 Pulse 67 11/05/22 08:00 Resp 18 11/05/22 08:00 BP 172/77 H 11/05/22 08:00 Pulse Ox 98 11/05/22 08:00 O2 Del Method 11/05/22 08:00 BMI result Body Mass Index 22.6 Appearing in no acute distress head is normocephalic atraumatic eyes pupils are PERRLA sclera is anicteric mouth throat mucous membranes are intact and moist neck is supple no lymphadenopathy, no JVD noted lung sounds are clear to auscultation heart regular rate rhythm, clear S1, S2 positive bowel sounds, abdomen is soft, nontender neuro patient is alert x3, no focal deficits DS: Data Data Completed and Pending Completed studies during hospitalization [Text1]: Procedures Assistance with Respiratory Ventilation, Less than 24 Consecutive Hours, Continuous Positive Airway Pressure (08/17/22) Detoxification Services for Substance Abuse Treatment (09/07/22) Excision of Esophagus, Via Natural or Artificial Opening Endoscopic, Diagnostic (09/07/22) Excision of Stomach, Pylorus, Via Natural or Artificial Opening Endoscopic, Diagnostic (09/07/22) Labs on day of discharge: Laboratory Results - last 24 hr 11/04/22 11/04/22 11/04/22 11:50 16:26 19:14 Sodium Potassium Chloride Carbon Dioxide Anion Gap BUN Creatinine Estim Creat Clear Calc Estimated GFR POC Glucose 136 H 217 H 190 H Random Glucose Calcium 11/05/22 11/05/22 06:01 07:29 Sodium 138 Potassium 4.4 Chloride 107 Carbon Dioxide 22 Anion Gap 13 BUN 13 Creatinine 1.01 Estim Creat Clear Calc 87.7 Estimated GFR > 60 POC Glucose 233 H Random Glucose 280 H Calcium 9.2 Preliminary micro results at discharge 11/03/22 04:50 Blood Culture - Preliminary Blood - Venous No growth after 48 hours. 11/03/22 04:50 Blood Culture - Preliminary Blood - Venous No growth after 48 hours. Discharge Plan Discharge Anticipated Discharge Date/Time: 11/05/22 09:25 Patient Disposition: Home, Self-Care Discharge Diagnosis: KELVIN Syncope Orthostatic hypotension Referrals: Zari Henry MD [Primary Care Provider] - 1 Week Discharge Medications: Continued hydralazine 50 mg Tablet 50 mg PO TID Qty: 90 0RF Protocol: Hold for SBP< HOLD for SBP < : 90 Anoro Ellipta 62.5-25 mcg/actuation Blister With Device 1 inh INHALATION DAILY sucralfate 1 gram Tablet 1 g PO QIDACHS Qty: 120 0RF ipratropium-albuterol 0.5 mg-3 mg(2.5 mg base)/3 mL solution for nebulization 3 ml inhalation Q8H PRN (Reason: Shortness Of Breath Or Wheezing) nicotine (polacrilex) 2 mg gum 2 mg buccal Q1H PRN (Reason: Nicotine Cravings) Rx Instructions: do not exceed 24 pieces / day nicotine 21 mg/24 hr patch 24 hour 21 mg transdermal DAILY PRN (Reason: Nicotine Cravings) trazodone 50 mg tablet 50 mg PO BEDTIME insulin lispro 100 unit/mL solution See Rx Instructions .ROUTE .COMPLEX Rx Instructions: insulin pump; use up to 100 units daily; OMNIPOD albuterol sulfate 90 mcg/actuation HFA aerosol inhaler 2 puff INHALATION Q6H PRN (Reason: Shortness Of Breath Or Wheezing) escitalopram oxalate 10 mg tablet 10 mg PO DAILY amlodipine 10 mg Tablet 10 mg PO DAILY 30 Days Qty: 30 0RF Protocol: Hold for SBP< HOLD for SBP < : 90 atorvastatin 40 mg tablet 40 mg PO DAILY lisinopril 40 mg tablet 40 mg PO DAILY metoprolol succinate 100 mg tablet extended release 24 hr 100 mg PO DAILY omeprazole 40 mg capsule,delayed release(DR/EC) 40 mg PO DAILY@0630 magnesium oxide 400 mg (241.3 mg magnesium) Tablet 400 mg PO BIDPC Qty: 60 0RF aspirin 81 mg tablet,delayed release (DR/EC) 81 mg PO DAILY Held gabapentin 300 mg capsule 300 mg PO TID Hold Instructions: Resume on 11/07/22. furosemide 40 mg Tablet 40 mg PO DAILY Qty: 30 0RF Hold Instructions: Resume on 11/07/22. Protocol: Hold for SBP< HOLD for SBP < : 90 Discharge Orders: Discharge Order (Routine); Ordered 11/05/22 Ordered By: Unique Rey Diet: Advance to usual diet Activity on Discharge: As tolerated Stand Alone Forms: Patient Portal Discharge page Care Plan Goals: complete resolution of symptoms Health Concerns: KELVIN Syncope Orthostatic hypotension Plan of Treatment: Follow-up with primary care provider as needed Take all medications as prescribed Continue eating and drinking plenty of fluids to avoid dehydration Assessment: See discharge summary
--- NOTE | 2022-11-05 09:35 | MHC.CM.PN ---
PT MEDICALLY CLEARED FOR D/C HOME SELF-CARE, PT TO [facility]
== END 2022-11-05 10:14 | disposition home or self-care (01) | DRG 249 ==
LOC: HO.ED 06:05 → HO.EDOVER 09:43 → HO.IMC 12:21
PROVIDERS: Hospitalist; Physician Assistant Medical; Student in an Organized Health Care Education/Training Program; Admitting Provider Family Medicine; Emergency Provider Emergency Medicine; PCP Internal Medicine; Visit Provider Nurse Practitioner Acute Care
DX: E86.0 Dehydration (principal); A08.4 Viral intestinal infection, unspecified; N17.9 Acute kidney failure, unspecified; J96.10 Chronic respiratory failure, unspecified whether with hypoxia or hypercapnia; E87.21 Acute metabolic acidosis; I50.32 Chronic diastolic (congestive) heart failure; I11.0 Hypertensive heart disease with heart failure; I95.1 Orthostatic hypotension; E86.1 Hypovolemia; E78.5 Hyperlipidemia, unspecified; F32.A Depression, unspecified; F17.210 Nicotine dependence, cigarettes, uncomplicated; T50.2X5A Adverse effect of carbonic-anhydrase inhibitors, benzothiadiazides and other diuretics, initial encounter; Z99.81 Dependence on supplemental oxygen; Z71.6 Tobacco abuse counseling; G47.33 Obstructive sleep apnea (adult) (pediatric); Z20.822 Contact with and (suspected) exposure to COVID-19; Z96.41 Presence of insulin pump (external) (internal); Z79.4 Long term (current) use of insulin; Z79.899 Other long term (current) drug therapy
CPT/HCPCS: 0241U; 36415; 70450; 71045; 72125; 76775; 80048; 80076; 81001; 81003; 82947; 83605; 83690; 83880; 84484; 85025; 85027; 87040; 93005; 94640; 96360; 96361; 99222; 99285

== ENCOUNTER 2022-12-22 14:56 | Inpatient (IN) | payer OTHER, SELFPAY ==
--- NOTE | ~2022-12-22 | US_ITS ---
EXAMINATION: US RETROPERITONEAL LIMITED (RENAL ONLY) CLINICAL INFORMATION: Essential hypertension.. COMPARISON: None TECHNIQUE: Ultrasound along with color Doppler imaging and spectral analysis was performed of the kidneys. FINDINGS: RIGHT KIDNEY: 11.5 x 6.4 x 5.2 cm (SAG x AP x TRV). The kidney is normal in size, contour, and echogenicity. Renal cortical thickness is normal. No calculi or focal parenchymal lesions. No hydronephrosis. LEFT KIDNEY: 11.2 x 6.8 x 4.6 cm (SAG x AP x TRV). The kidney is normal in size, contour, and echogenicity. Renal cortical thickness is normal. No calculi or focal parenchymal lesions. No hydronephrosis. DOPPLER INTERROGATION: Aorta: 165 cm/sec Right Main Renal Artery: Proximal: 166 cm/sec Mid: 258 cm/sec Distal: 172 cm/sec Left Main Renal Artery: Proximal: 170 cm/sec Mid: 145 cm/sec Distal: 139 cm/sec Renal-Aortic Ratio (RAR): Right: Not applicable Left: Not applicable Right upper pole, interpolar and lower pole interlobar resistive indices are within normal limits. Left upper pole and interpolar interlobar resistive indices are elevated. The left lower pole interlobar resistive index is within normal limits. No parvus et tardus configuration is seen. The bilateral renal veins appear patent. US/US renal doppler IMPRESSION: There is hemodynamically significant right renal artery stenosis, and borderline hemodynamically significant left renal artery stenosis is seen. Recommend further evaluation with CTA or MRA, if clinically indicated.
--- NOTE | ~2022-12-22 | CT_ITS ---
EXAMINATION: CT ABDOMEN AND PELVIS WITH CONTRAST CLINICAL INFORMATION: Lower abdominal pain COMPARISON: Previous renal ultrasound October [address] of the abdomen and pelvis August 2022 TECHNIQUE: Multidetector volumetric images were obtained from the superior aspect of the liver through the pubic symphysis following administration 85 mL of Omnipaque 350 intravenous contrast. Sagittal and coronal reformatted images were obtained on the technologist's workstation. Oral contrast: Yes This CT examination was performed using dose optimization techniques as appropriate, variously including the following: *Automated exposure control *Adjustment of mA and/or kV according to patient size (this includes techniques or standardized protocols for targeted exams where dose is matched to indication/reason for exam; i.e. extremities or head) *Use of iterative reconstruction technique DLP: 472 mGy-cm FINDINGS: LUNG BASES: Bilateral pleural effusions and infiltrates LIVER, GALLBLADDER, AND BILIARY TREE: The liver is normal in size, shape, and attenuation. No focal hepatic lesion or biliary ductal dilatation is present. The gallbladder is unremarkable with no evidence of radiopaque gallstones, gallbladder wall thickening, or obvious pericholecystic inflammatory changes. PANCREAS: Unremarkable. SPLEEN: Unremarkable. ADRENAL GLANDS: Unremarkable. KIDNEYS AND URETERS: The kidneys are normal in size, shape, and attenuation. No hydronephrosis, hydroureter, or calculi seen. Small cyst in the lower pole of the right kidney. No imaging follow-up recommended. BLADDER: Unremarkable. GASTROINTESTINAL TRACT: The small and large bowel are unremarkable. The appendix is unremarkable. ABDOMINAL WALL: No significant hernia is appreciated. LYMPH NODES: Normal. VASCULAR: There is evidence of atherosclerotic disease. There is a left common iliac artery stent. PELVIC VISCERA: Unremarkable. OSSEOUS STRUCTURES: Unremarkable CT/CT abdomen pelvis w IV con IMPRESSION: No acute findings. Fleischner guidelines were followed.
--- NOTE | ~2022-12-22 | US_ITS ---
EXAMINATION: US RETROPERITONEAL LIMITED (RENAL ONLY) CLINICAL INFORMATION: Essential hypertension.. COMPARISON: None TECHNIQUE: Ultrasound along with color Doppler imaging and spectral analysis was performed of the kidneys. FINDINGS: RIGHT KIDNEY: 11.5 x 6.4 x 5.2 cm (SAG x AP x TRV). The kidney is normal in size, contour, and echogenicity. Renal cortical thickness is normal. No calculi or focal parenchymal lesions. No hydronephrosis. LEFT KIDNEY: 11.2 x 6.8 x 4.6 cm (SAG x AP x TRV). The kidney is normal in size, contour, and echogenicity. Renal cortical thickness is normal. No calculi or focal parenchymal lesions. No hydronephrosis. DOPPLER INTERROGATION: Aorta: 165 cm/sec Right Main Renal Artery: Proximal: 166 cm/sec Mid: 258 cm/sec Distal: 172 cm/sec Left Main Renal Artery: Proximal: 170 cm/sec Mid: 145 cm/sec Distal: 139 cm/sec Renal-Aortic Ratio (RAR): Right: Not applicable Left: Not applicable Right upper pole, interpolar and lower pole interlobar resistive indices are within normal limits. Left upper pole and interpolar interlobar resistive indices are elevated. The left lower pole interlobar resistive index is within normal limits. No parvus et tardus configuration is seen. The bilateral renal veins appear patent. US/US renal BI IMPRESSION: There is hemodynamically significant right renal artery stenosis, and borderline hemodynamically significant left renal artery stenosis is seen. Recommend further evaluation with CTA or MRA, if clinically indicated.
--- NOTE | ~2022-12-22 | XR_ITS ---
EXAMINATION: XR CHEST CLINICAL INFORMATION: Chest pain. Shortness of breath. COMPARISON: 11/03/2022 TECHNIQUE: Frontal view of the chest was obtained. FINDINGS: Cardiac leads overlie the chest. The lungs are well expanded. Diffuse bronchial wall thickening with mild interstitial prominence. This is greatest in the perihilar regions. No pleural effusion or pneumothorax. The cardiomediastinal silhouette is within normal limits. XR/XR chest 1V IMPRESSION: Bronchial wall thickening with mild interstitial prominence. This could be associated with a small airways process versus mild edema.
--- NOTE | ~2022-12-22 | CT_ITS ---
EXAMINATION: CT ANGIOGRAM OF THE CHEST WITH AND WITHOUT CONTRAST (CT PULMONARY ANGIOGRAM FOR PE) CLINICAL INFORMATION: Reason for Exam + dimer cp sob COMPARISON: Previous chest x-rays most recent October 2022 and from earlier the same day and previous chest CTA July 2022 TECHNIQUE: Prior to contrast administration, noncontrast localization images were obtained. Subsequently, multidetector volumetric imaging was performed from the thoracic inlet to below the diaphragms following the administration of 80 mL Omnipaque 350 intravenous contrast. No contrast reaction reported Sagittal, coronal, and MIP oblique sagittal reformatted images were obtained on the CT workstation, uploaded to PACS, and reviewed. This CT examination was performed using dose optimization techniques as appropriate, variously including the following: *Automated exposure control *Adjustment of mA and/or kV according to patient size (this includes techniques or standardized protocols for targeted exams where dose is matched to indication/reason for exam; i.e. extremities or head) *Use of iterative reconstruction technique Total exam dose-length product 236 mGy-cm FINDINGS: QUALITY OF STUDY/CONTRAST BOLUS: Satisfactory. PULMONARY ARTERIES: No central or segmental pulmonary emboli. THORACIC AORTA: No aneurysm or dissection. LUNG: There are coarse lung markings and patchy areas of groundglass attenuation and airspace disease seen in the inferior segment lingula and bilateral lower lobes. There is similar minimal change seen in the right middle lobe. Pattern is similar to July 2022 chest CTA PLEURA: There are small to moderate bilateral pleural effusions. MEDIASTINUM: Normal heart size. No pericardial effusion. There is diffuse mediastinal lymphadenopathy. Larger lymph nodes are upper normal in size. Largest lymph nodes are right paratracheal lymph node measuring 1.2 cm in short axis, right subcarinal or infrahilar lymph node measuring 1.1 cm and AP window lymph node measuring 0.8 cm. There are small bilateral hilar lymph nodes. Lymphadenopathy does not appear appreciably changed from July 2022 exam. No evidence of septal bowing or right heart strain. There is question of wall thickening of the esophagus. CORONARY ARTERY CALCIFICATION: None visualized on this study. CHEST WALL/AXILLA: Small bilateral axillary lymph nodes. No enlarged lymph nodes. OSSEOUS STRUCTURES: No acute or suspicious osseous abnormality. UPPER ABDOMEN: Unremarkable. No reflux of contrast into the hepatic veins to suggest elevated right heart pressures. CT/CT angio chest PE protocol IMPRESSION: No evidence of pulmonary embolism. Bibasilar infiltrates and moderate-sized bilateral pleural effusions. Diffuse mediastinal and bilateral hilar lymphadenopathy. Question diffuse wall thickening of the esophagus. VTE: negative
[2022-12-22 15:45] VITALS: BP 194/93; BP 211/99; PULSE 79; RESP 18; O2SAT 97; BMI 21.6
--- NOTE | 2022-12-22 15:48 | ECG_ITS ---
Test Reason : CP Blood Pressure : / mmHG Vent. Rate : 074 BPM Atrial Rate : 074 BPM P-R Int : 130 ms QRS Dur : 076 ms QT Int : 390 ms P-R-T Axes : 047 047 050 degrees QTc Int : 432 ms Normal sinus rhythm with sinus arrhythmia Nonspecific ST and T wave abnormality Borderline ECG When compared with ECG of 03-NOV-2022 18:28, No significant changes seen Referred By: Jaci Marley Electronically Signed By:JESSICA LY
[2022-12-22 16:41] LABS: MANUAL DIFF FLAG NO
[2022-12-22 16:47] LABS: Basophils Absolute Auto 0.1 X10*3/uL (0.0-0.2); Basophils Percent Auto 0.4 % (0-2); Eosinophils Absolute Auto 0.1 X10*3/uL (0.0-0.4); Hematocrit 35.9 % (42.0-52.0); Hemoglobin 11.2 g/dl (14.0-18.0); Imm Gran Abs Auto 0.04 X10*3/uL (0.00-0.03); Imm Gran Pct Auto 0.3 % (0.0-0.4); Lymphocytes Percent Auto 15.1 % (20-40); Mean Corpuscular HGB Conc 31.2 g/dl (31.0-36.0); Mean Corpuscular Hemoglobin 24.4 pg (27.0-33.0); Mean Corpuscular Volume 78.2 fL (80.0-98.0); Mean Platelet Volume 9.5 fL (9.4-12.4); Monocytes Absolute Auto 0.6 X10*3/uL (0.1-1.2); Monocytes Percent Auto 4.8 % (2-11); Neutrophils Absolute Auto 10.2 x10*3/uL (2.0-8.3); Neutrophils Percent Auto 78.4 % (45-73); Platelet Count 371 X10*3/uL (160-400); Red Blood Count 4.59 X10*6/uL (4.60-5.80); Red Cell Distribution Width 19.5 % (11.0-16.0)
--- NOTE | 2022-12-22 16:50 | ED.CHESTPAIN ---
HPI - Chest Pain General Chief Complaint: Chest Pain Stated Complaint: SOB,MID CP,93%,NITRO GIVEN 96% 2LPM Time Seen by Provider: 12/22/22 16:46 Source: patient and EMS Mode of arrival: EMS Limitations: no limitations History of Present Illness HPI narrative: 47-year-old male history of anemia, chronic diastolic congestive heart failure, KELVIN, asthma, diabetes, hypertension, hyperlipidemia, hypercholesterolemia, YARELIS, PAD presents to the emergency department with complaints of substernal chest pressure, shortness of breath X2 days. Patient reports 4/10 substernal nonradiating chest pressure. Patient reports shortness of breath both at rest and with movement. Patient also reports that he feels like his face is swollen and he is looking ?puffy ?. Patient tells me this is also been going on for the past few days. Prior to patient's arrival he received nitroglycerin from EMS, which helped the chest discomfort. His chest discomfort was at a 6/10 however now 4/10. Patient was saturating low 90s for EMS, was placed on 2 L nasal cannula is now 96%, he does not use oxygen at home. Patient not on blood thinner. Related Data Home Medications Medication Instructions Recorded Confirmed albuterol sulfate 90 mcg/actuation 2 puff inhalation Q6H PRN 08/01/22 12/22/22 aerosol inhaler Shortness Of Breath Or Wheezing escitalopram oxalate 10 mg tablet 10 mg PO DAILY 08/01/22 12/22/22 insulin lispro 100 unit/mL See Rx Instructions .Route .COMPLEX 08/01/22 12/22/22 subcutaneous solution trazodone 50 mg tablet 50 mg PO BEDTIME 08/01/22 12/22/22 umeclidinium 62.5 mcg-vilanterol 1 inh inhalation DAILY 09/07/22 12/22/22 25 mcg/actuation powdr for inhalation (Anoro Ellipta) aspirin 81 mg tablet,delayed 81 mg PO DAILY 10/06/22 12/22/22 release atorvastatin 40 mg tablet 40 mg PO DAILY 10/06/22 12/22/22 gabapentin 300 mg capsule 300 mg PO TID 10/06/22 12/22/22 lisinopril 40 mg tablet 40 mg PO DAILY 10/06/22 12/22/22 metoprolol succinate 100 mg 100 mg PO DAILY 10/06/22 12/22/22 tablet,extended release 24 hr omeprazole 40 mg capsule,delayed 40 mg PO DAILY@0630 10/06/22 12/22/22 release ipratropium 0.5 mg-albuterol 3 mg 3 ml inhalation Q8H PRN Shortness 11/03/22 12/22/22 (2.5 mg base)/3 mL nebulization Of Breath Or Wheezing soln nicotine (polacrilex) 2 mg gum 2 mg buccal Q1H PRN Nicotine 11/03/22 12/22/22 Cravings nicotine 21 mg/24 hr daily 21 mg transdermal DAILY PRN 11/03/22 12/22/22 transdermal patch Nicotine Cravings ferrous sulfate 324 mg (65 mg 1 tab PO DAILY 12/22/22 12/22/22 iron) tablet,delayed release Previous Rx's Medication Instructions Recorded amlodipine 10 mg tablet 10 mg PO DAILY 30 days #30 tabs 08/07/22 hydralazine 50 mg tablet 50 mg PO TID #90 tabs 08/13/22 furosemide 40 mg tablet 40 mg PO DAILY #30 tabs 08/20/22 magnesium oxide 400 mg (241.3 mg 400 mg PO BIDPC #60 tabs 08/20/22 magnesium) tablet sucralfate 1 gram tablet 1 g PO QIDACHS #120 tabs 09/10/22 Allergies Allergy/AdvReac Type Severity Reaction Status Date / Time dulaglutide [From [facility]] Allergy Unknown Verified 10/06/22 14:42 metformin [METFORMIN] AdvReac Mild DIARRHEA, Verified 10/06/22 14:42 nausea and vomiting Review of Systems Review of Systems: Constitutional : No Weight loss, No Fever, No Chills, No Fatigue, No Malaise ENT/Mouth : No sore throat, No Rhinorrhea Eyes: No Eye Pain, No Swelling, No Redness Cardiovascular : + Chest Pain, + SOB, + Dyspnea on Exertion, + Orthopnea, + Edema, No Palpitations Respiratory : No Cough, No Sputum, No Wheezing Gastrointestinal : No Nausea, No Vomiting, No Diarrhea, No Constipation, No abdominal Pain, No Hematochezia, No Melena Genitourinary : No Dysuria, No Urinary Frequency, No Hematuria, Musculoskeletal : No joint pain, No Myalgias, No Joint Swelling Skin : No Skin Lesions, No rash Neuro : No Weakness, No Numbness, No Dizziness, No Headache Psych : No Anxiety/Panic, No Depression All other systems reviewed and are negative Yes all other systems are reviewed and are negative [facility] Past Medical History Attestation statement: The following information was validated with the patient. Source: old records reviewed and nursing notes reviewed Medical History Acute on chronic anemia Acute on chronic diastolic (congestive) heart failure Acute respiratory failure KELVIN (acute kidney injury) Anxiety Asthma CHF exacerbation Chronic heart failure with preserved ejection fraction (HFpEF) Congestive heart failure Depression Diabetes HLD (hyperlipidemia) HTN (hypertension) Hypercholesteremia Hyperglycemia due to type 2 diabetes mellitus Hypoxia YARELIS (obstructive sleep apnea) YARELIS (obstructive sleep apnea) PAD (peripheral artery disease) Uncontrolled hypertension Surgical History S/P angiogram of extremity Family History Family History Father Alzheimer disease CAD (coronary artery disease) Social History Social History Household Members: Family Housing: Apartment Do you presently have visiting nurse or other home services: No Alcohol intake: current Alcohol intake frequency: a few times a month Alcohol type: hard liquor Patient Tobacco Use Status: Current everyday Tobacco user Tobacco use type: Cigarette Cigarettes Per Day: 10 Years Smoked: 30+/- e-Cigarette/Vaping Use: Never Used Second Hand Smoke Exposure: No Substance Use Type: Marijuana Advance Directives: Yes Advance Directives on File: Yes Advance Directives Date on File: 06/21/21 service: No Current occupational status: disabled Physical Exam Vital Signs: Vital Signs: Last Vital Signs Pulse 88 12/22/22 20:43 Resp 20 12/22/22 20:43 BP 211/86 H 12/22/22 20:43 Pulse Ox 97 12/22/22 15:45 O2 Del Method 12/22/22 15:45 BMI result Body Mass Index 21.6 Patient hypertensive. Appearance: Alert.? Oriented X3.? No acute distress.? Head: Normocephalic, atraumatic, no step-offs or deformities Eyes: Pupils equal, round and reactive to light.? ENT: Pharynx normal.? Neck: Normal inspection.? Neck supple.? CVS: Normal heart rate and rhythm.? Pulses normal.? Respiratory: No respiratory distress.? Breath sounds diminished throughout..? Abdomen: Soft and nontender.? Skin: Skin warm and dry.? Normal skin color.? Normal skin turgor.? Extremities: No lower extremity edema.? No calf ttp. 5/5 strength to bilateral upper and lower extremities Neuro: Oriented X 3.? No motor deficit.? No sensory deficit. CN 2-12 intact Course Reevaluation(s) Reevaluation #1: Patient's CBC with slight leukocytosis however upon chart review it appears as though this is around patient's baseline. Also noted to have a microcytic anemia which again is around patient's baseline. No acute findings on CBC. Chemistry with no acute electrolyte abnormalities requiring intervention. Patient's troponin negative x2, initial 9.5 repeat 7.4, EKG nonischemic. BNP 822, raising concerns for CHF, patient's baseline BNP varies. COVID influenza negative. Chest x-ray with bronchial wall thickening with mild interstitial prominence. Could be associated with small airway process versus mild edema. I suspect it is edema based off patient's history and physical exam. Time: 19:54 Reevaluation #2: Patient's CTA with no pulmonary embolism however concerns for possible bilateral bibasilar infiltrates. Patient does have leukocytosis at this time infection suspected will give ceftriaxone, and obtain blood cultures and a lactic acid. Plan is to admit patient to the hospital team. Time: 21:42 Medications Administered Discontinued Medications Generic Name Dose Route Start Last Admin Trade Name Favianq PRN Reason Stop Dose Admin Amlodipine Besylate 10 mg 12/22/22 19:49 12/22/22 20:45 Amlodipine Besylate 10 Mg Tablet PO 12/22/22 19:50 10 mg ONCE ONE Administration Protocol Furosemide 40 mg 12/22/22 17:13 12/22/22 18:25 Furosemide 40 Mg/4 Ml Vial IVPUSH 12/22/22 17:14 40 mg STAT STA Administration Protocol Furosemide 20 mg 12/22/22 18:03 12/22/22 20:45 Furosemide 20 Mg/2 Ml Vial IVPUSH 12/22/22 18:04 20 mg ONCE ONE Administration Protocol Iohexol 100 ml 12/22/22 20:30 12/22/22 20:32 Iohexol 350 Mg/Ml 100 Ml Infus..Btl IV 12/22/22 20:31 85 ml ONCE ONE Administration Medical Decision Making Medical Decision Making [facility] Narrative: 1650 39-year-old male presents with chest pain, shortness of breath x2 days. Patient was given sublingual nitro by EMS with little relief. Physical exam significant for diminished breath sounds bilaterally. History and physical concerning for possible CHF, PE. Unlikely that this is ACS or pneumonia. History and physical not consistent with aortic dissection. Plan at this time basic labs, troponin, BNP, D-dimer, urine, imaging. Differential Diagnosis Differential Diagnoses: The differential diagnosis associated with the presentation includes History and physical concerning for possible CHF, PE. Unlikely that this is ACS or pneumonia. History and physical not consistent with aortic dissection. Admission/Observation Consideration of admission/observation: Escalation of care including admission/observation considered Likely Consult Healthcare Provider Management of the patient was discussed with: Hospitalist Lab Data [facility] Lab Attestation statement: I reviewed the patient's lab results. 12/22/22 16:34 12/22/22 16:34 Labs: Lab Results 12/22/22 12/22/22 12/22/22 Range/Units 16:34 16:34 16:34 WBC 13.0 H (4.8-10.8) X10*3/uL RBC 4.59 L (4.60-5.80) X10*6/uL Hgb 11.2 L (14.0-18.0) g/dl Hct 35.9 L (42.0-52.0) % MCV 78.2 L (80.0-98.0) fL MCH 24.4 L (27.0-33.0) pg MCHC 31.2 (31.0-36.0) g/dl RDW 19.5 H (11.0-16.0) % Plt Count 371 D (160-400) X10*3/uL MPV 9.5 (9.4-12.4) fL Immature Gran % (Auto) 0.3 (0.0-0.4) % Neut % (Auto) 78.4 H (45-73) % Lymph % (Auto) 15.1 L (20-40) % [place] % (Auto) 4.8 (2-11) % Eos % (Auto) 1.0 (0-4) % Baso % (Auto) 0.4 (0-2) % Lymph # (Auto) 2.0 (1.2-4.9) X10*3/uL [place] # (Auto) 0.6 (0.1-1.2) X10*3/uL Eos # (Auto) 0.1 (0.0-0.4) X10*3/uL Baso # (Auto) 0.1 (0.0-0.2) X10*3/uL Abs Immat Gran (auto) 0.04 H (0.00-0.03) X10*3/uL Absolute Neuts (auto) 10.2 H (2.0-8.3) x10*3/uL Absolute Nucleated RBC 0.000 (0.0-0.012) X10*3/uL Nucleated RBC % (auto) 0.0 (0.0-0.2) /100WBC PT (10.0-13.1) SEC INR (0.9-1.1) D-Dimer High Sensitivty NG/ML Sodium 146 H (135-145) mmol/L Potassium 3.9 (3.3-5.1) mmol/L Chloride 113 H (96-108) mmol/L Carbon Dioxide 23 (22-29) mmol/L Anion Gap 14 (12-20) BUN 15 (9-16) mg/dL Creatinine 0.91 (0.5-1.4) mg/dL Estim Creat Clear Calc 82.7 Estimated GFR > 60 POC Glucose (60-115) mg/dL Random Glucose 69 (60-115) mg/dL Calcium 8.8 (8.4-10.2) mg/dL Magnesium 1.6 (1.6-2.6) mg/dL Total Bilirubin 0.4 (0.0-1.0) mg/dL AST 17 (5-37) U/L ALT 10 (0-40) U/L Alkaline Phosphatase 93 (39-117) U/L Troponin I High Sens (<3.5-35.0) ng/L B-Natriuretic Peptide (<100) pg/mL Total Protein 6.3 L (6.5-8.0) g/dL Albumin 3.4 L (3.5-5.0) g/dL COVID-19 (XANDER) Negative (Negative) COVID-19 Clin Com See Note Influenza Type A (MAYELIN) (Negative) Influenza Type B (MAYELIN) (Negative) Influenza A & B Note 12/22/22 12/22/22 12/22/22 Range/Units 16:34 16:34 16:34 WBC (4.8-10.8) X10*3/uL RBC (4.60-5.80) X10*6/uL Hgb (14.0-18.0) g/dl Hct (42.0-52.0) % MCV (80.0-98.0) fL MCH (27.0-33.0) pg MCHC (31.0-36.0) g/dl RDW (11.0-16.0) % Plt Count (160-400) X10*3/uL MPV (9.4-12.4) fL Immature Gran % (Auto) (0.0-0.4) % Neut % (Auto) (45-73) % Lymph % (Auto) (20-40) % [place] % (Auto) (2-11) % Eos % (Auto) (0-4) % Baso % (Auto) (0-2) % Lymph # (Auto) (1.2-4.9) X10*3/uL [place] # (Auto) (0.1-1.2) X10*3/uL Eos # (Auto) (0.0-0.4) X10*3/uL Baso # (Auto) (0.0-0.2) X10*3/uL Abs Immat Gran (auto) (0.00-0.03) X10*3/uL Absolute Neuts (auto) (2.0-8.3) x10*3/uL Absolute Nucleated RBC (0.0-0.012) X10*3/uL Nucleated RBC % (auto) (0.0-0.2) /100WBC PT 10.5 (10.0-13.1) SEC INR 0.9 (0.9-1.1) D-Dimer High Sensitivty 353 NG/ML Sodium (135-145) mmol/L Potassium (3.3-5.1) mmol/L Chloride (96-108) mmol/L Carbon Dioxide (22-29) mmol/L Anion Gap (12-20) BUN (9-16) mg/dL Creatinine (0.5-1.4) mg/dL Estim Creat Clear Calc Estimated GFR POC Glucose (60-115) mg/dL Random Glucose (60-115) mg/dL Calcium (8.4-10.2) mg/dL Magnesium (1.6-2.6) mg/dL Total Bilirubin (0.0-1.0) mg/dL AST (5-37) U/L ALT (0-40) U/L Alkaline Phosphatase (39-117) U/L Troponin I High Sens 9.5 D (<3.5-35.0) ng/L B-Natriuretic Peptide 822 H (<100) pg/mL Total Protein (6.5-8.0) g/dL Albumin (3.5-5.0) g/dL COVID-19 (XANDER) (Negative) COVID-19 Clin Com Influenza Type A (MAYELIN) (Negative) Influenza Type B (MAYELIN) (Negative) Influenza A & B Note 12/22/22 12/22/22 12/22/22 Range/Units 16:34 17:36 18:24 WBC (4.8-10.8) X10*3/uL RBC (4.60-5.80) X10*6/uL Hgb (14.0-18.0) g/dl Hct (42.0-52.0) % MCV (80.0-98.0) fL MCH (27.0-33.0) pg MCHC (31.0-36.0) g/dl RDW (11.0-16.0) % Plt Count (160-400) X10*3/uL MPV (9.4-12.4) fL Immature Gran % (Auto) (0.0-0.4) % Neut % (Auto) (45-73) % Lymph % (Auto) (20-40) % [place] % (Auto) (2-11) % Eos % (Auto) (0-4) % Baso % (Auto) (0-2) % Lymph # (Auto) (1.2-4.9) X10*3/uL [place] # (Auto) (0.1-1.2) X10*3/uL Eos # (Auto) (0.0-0.4) X10*3/uL Baso # (Auto) (0.0-0.2) X10*3/uL Abs Immat Gran (auto) (0.00-0.03) X10*3/uL Absolute Neuts (auto) (2.0-8.3) x10*3/uL Absolute Nucleated RBC (0.0-0.012) X10*3/uL Nucleated RBC % (auto) (0.0-0.2) /100WBC PT (10.0-13.1) SEC INR (0.9-1.1) D-Dimer High Sensitivty NG/ML Sodium (135-145) mmol/L Potassium (3.3-5.1) mmol/L Chloride (96-108) mmol/L Carbon Dioxide (22-29) mmol/L Anion Gap (12-20) BUN (9-16) mg/dL Creatinine (0.5-1.4) mg/dL Estim Creat Clear Calc Estimated GFR POC Glucose 55 L* (60-115) mg/dL Random Glucose (60-115) mg/dL Calcium (8.4-10.2) mg/dL Magnesium (1.6-2.6) mg/dL Total Bilirubin (0.0-1.0) mg/dL AST (5-37) U/L ALT (0-40) U/L Alkaline Phosphatase (39-117) U/L Troponin I High Sens 7.4 (<3.5-35.0) ng/L B-Natriuretic Peptide (<100) pg/mL Total Protein (6.5-8.0) g/dL Albumin (3.5-5.0) g/dL COVID-19 (XANDER) (Negative) COVID-19 Clin Com Influenza Type A (MAYELIN) Negative (Negative) Influenza Type B (MAYELIN) Negative (Negative) Influenza A & B Note See Note 12/22/22 Range/Units 21:08 WBC (4.8-10.8) X10*3/uL RBC (4.60-5.80) X10*6/uL Hgb (14.0-18.0) g/dl Hct (42.0-52.0) % MCV (80.0-98.0) fL MCH (27.0-33.0) pg MCHC (31.0-36.0) g/dl RDW (11.0-16.0) % Plt Count (160-400) X10*3/uL MPV (9.4-12.4) fL Immature Gran % (Auto) (0.0-0.4) % Neut % (Auto) (45-73) % Lymph % (Auto) (20-40) % [place] % (Auto) (2-11) % Eos % (Auto) (0-4) % Baso % (Auto) (0-2) % Lymph # (Auto) (1.2-4.9) X10*3/uL [place] # (Auto) (0.1-1.2) X10*3/uL Eos # (Auto) (0.0-0.4) X10*3/uL Baso # (Auto) (0.0-0.2) X10*3/uL Abs Immat Gran (auto) (0.00-0.03) X10*3/uL Absolute Neuts (auto) (2.0-8.3) x10*3/uL Absolute Nucleated RBC (0.0-0.012) X10*3/uL Nucleated RBC % (auto) (0.0-0.2) /100WBC PT (10.0-13.1) SEC INR (0.9-1.1) D-Dimer High Sensitivty NG/ML Sodium (135-145) mmol/L Potassium (3.3-5.1) mmol/L Chloride (96-108) mmol/L Carbon Dioxide (22-29) mmol/L Anion Gap (12-20) BUN (9-16) mg/dL Creatinine (0.5-1.4) mg/dL Estim Creat Clear Calc Estimated GFR POC Glucose 336 H (60-115) mg/dL Random Glucose (60-115) mg/dL Calcium (8.4-10.2) mg/dL Magnesium (1.6-2.6) mg/dL Total Bilirubin (0.0-1.0) mg/dL AST (5-37) U/L ALT (0-40) U/L Alkaline Phosphatase (39-117) U/L Troponin I High Sens (<3.5-35.0) ng/L B-Natriuretic Peptide (<100) pg/mL Total Protein (6.5-8.0) g/dL Albumin (3.5-5.0) g/dL COVID-19 (XANDER) (Negative) COVID-19 Clin Com Influenza Type A (MAYELIN) (Negative) Influenza Type B (MAYELIN) (Negative) Influenza A & B Note Independent Interpretation I performed an independent interpretation of an: EKG (EKG with ventricular rate of 74, [place] normal, QRS normal, QT/QTC normal. EKG with normal sinus rhythm with sinus arrhythmia. No ST elevations or inversions concerning for ischemia.) and Plain X-Ray (XR/XR chest 1V IMPRESSION: Bronchial wall thickening with mild interstitial prominence. This could be associated with a small airways process versus mild edema. ) Radiology Impression Discussion of test interpretation with radiology: I have reviewed the radiologist's reading. Chronic Conditions Patient?s care impacted by: Diabetes and Hypertension Core Measures AMI core measures followed: Yes Measure exclusions: not indicated Critical Care Time Critical Care Time Critical Care Time: No Discharge Plan Discharge Clinical Impression: Congestive heart failure, Infiltrate of lung present on computed tomography, Chest pain not due to acute coronary syndrome, Shortness of breath Patient Disposition: Admitted As Inpatient
[2022-12-22 16:54] LABS: INTERNATIONAL NORM RATIO 0.9 (0.9-1.1); Prothrombin Time 10.5 SEC (10.0-13.1)
[2022-12-22 16:56] LABS: D Dimer High Sensitivity 353 NG/ML
[2022-12-22 17:00] LABS: Alanine Aminotransferase 10 U/L (0-40); Albumin Level 3.4 g/dL (3.5-5.0); Alkaline Phosphatase 93 U/L (39-117); Anion Gap 14 (12-20); Aspartate Amino Transferase 17 U/L (5-37); Bilirubin Total 0.4 mg/dL (0.0-1.0); Blood Urea Nitrogen 15 mg/dL (9-16); Calcium 8.8 mg/dL (8.4-10.2); Carbon Dioxide 23 mmol/L (22-29); Chloride 113 mmol/L (96-108); Creatinine Clr Calc Pharmacy 82.7; Estimated Glomerular Filt Rate > 60; Glucose Random 69 mg/dL (60-115); Magnesium 1.6 mg/dL (1.6-2.6); Potassium 3.9 mmol/L (3.3-5.1); Sodium 146 mmol/L (135-145); Total Protein 6.3 g/dL (6.5-8.0)
[2022-12-22 17:03] LABS: B Type Natriuretic Peptide 822 pg/mL (<100); IDNOW Serial# 9DB6401D; Influenza A Negative (Negative); Influenza B2 Negative (Negative)
[2022-12-22 17:04] LABS: COVID-19 Test Negative (Negative); IDNOW Serial# 55D5AD1C
[2022-12-22 17:07] LABS: Troponin-I High Sensitivity 9.5 ng/L (<3.5-35.0)
[2022-12-22 17:40] LABS: Glucose, Whole Blood 55 mg/dL (60-115)
[2022-12-22] MEDS: Furosemide 40 MG/4 ML VIAL IVPUSH (18:25)
--- NOTE | 2022-12-22 18:52 | PHA.MEDREC ---
Pharmacy Consult ? Medication Reconciliation Pharmacy has completed the medication reconciliation. Reviewed medication list with patient. He states he has 2 regular inhalers in addition to his albuterol rescue inhaler however he is only able to remember the Anoro and doesn't remember the name of the other one. There is claim history for a spiriva respimat on 07/25/22 but nothing else. The anoro was entered in the med rec but without further information I didn't know which other inhaler to enter in for him. He uses Omnipod insulin pump that delivers constant rate of 0.75 units of lispro insulin per hour.
[2022-12-22 18:57] LABS: Troponin-I High Sensitivity 7.4 ng/L (<3.5-35.0)
[2022-12-22] MEDS: iohexoL 350 MG/ML 100 ML INFUS..BTL IV (20:32)
[2022-12-22 20:43] VITALS: BP 211/86; PULSE 88; RESP 20
[2022-12-22] MEDS: Furosemide 20 MG/2 ML VIAL IVPUSH (20:45)
[2022-12-22] MEDS: amLODIPine Besylate 10 MG TABLET PO (20:45)
--- NOTE | 2022-12-22 20:47 | PC.NURSE ---
Pt NEVAREZ x 3 medicated per MAR.
--- NOTE | 2022-12-22 20:54 | PM.IMHP ---
History of Present Illness Date of Service: 12/22/22 Attending physician on admission: Porfirio Ricardo Chief Complaint: SOB, chest pain Pt is a 47-year-old male with a PMH significant for?HFpEF, HTN, insulin-dependent diabetes, COPD on 2L NC, GERD, alcohol use disorder, and YARELIS who presents to the ED with?SOB and chest tightness x2 days. Patient states for the past few days he has noticed increased shortness of breath with exertion and at rest, endorses orthopnea. Has had increased swelling in his abdomen, eyes, and face, which he says feels puffy, though no noticeable lower leg edema. Has also had chest pain/tightness with inspiration. Pt furthermore complains of chronic abdominal pain which wraps around his flanks towards his back that has been ongoing for over a year. Patient denies fever, chills, nausea, vomiting. No changes to bowel or bladder habits. Patient has been admitted in the past for CHF and says that his current condition feel similar to then. In the ED patient was hypertensive at 211/86. Labs were significant for leukocytosis of 13.0 (near baseline), H&H of 11.2/35.9 (near baseline), glucose of 55, BNP elevated at 822, and initial troponin 9.5 with repeat 7.4. CXR showed possible mild edema. CTA showed bibasilar infiltrates and moderate-sized bilateral pleural effusions with diffuse mediastinal and bilateral hilar lymphadenopathy. CT of abdomen and pelvis with no acute findings. EKG demonstrated normal sinus rhythm without any evidence of ST elevations or depressions. Pt was treated with furosemide and amlodipine. Pt will be admitted to the hospital for treatment further evaluation of acute CHF exacerbation in the setting of pneumonia with IV diuretics and antibiotics. Review of Systems Review of Systems: Increasing shortness of breath x2 days Swelling in face and abdomen Chest tightness with inspiration Chronic abdominal pain Orthopnea Yes all other systems are reviewed and are negative [facility] Medical History Acute on chronic anemia Acute on chronic diastolic (congestive) heart failure Acute respiratory failure KELVIN (acute kidney injury) Anxiety Asthma CHF exacerbation Chronic heart failure with preserved ejection fraction (HFpEF) Congestive heart failure Depression Diabetes HLD (hyperlipidemia) HTN (hypertension) Hypercholesteremia Hyperglycemia due to type 2 diabetes mellitus Hypoxia YARELIS (obstructive sleep apnea) YARELIS (obstructive sleep apnea) PAD (peripheral artery disease) Uncontrolled hypertension Family History Father Alzheimer disease CAD (coronary artery disease) Surgical History S/P angiogram of extremity Social History Household Members: Family Housing: Apartment Do you presently have visiting nurse or other home services: No Alcohol intake: current Alcohol intake frequency: holidays/special occasions only Alcohol type: hard liquor Patient Tobacco Use Status: Current everyday Tobacco user Tobacco use type: Cigarette Cigarettes Per Day: 10 Years Smoked: 30+/- Smoked in Last 30 Days: Yes e-Cigarette/Vaping Use: Never Used Second Hand Smoke Exposure: No Substance Use Type: Marijuana Advance Directives: Yes Advance Directives on File: Yes Advance Directives Date on File: 06/21/21 Nutrition Risks: No Nutritional Risk service: No Current occupational status: disabled Meds Allergies Allergy/AdvReac Type Severity Reaction Status Date / Time dulaglutide [From Trulicity] Allergy Unknown Verified 10/06/22 14:42 metformin [METFORMIN] AdvReac Mild DIARRHEA, Verified 10/06/22 14:42 nausea and vomiting Active Medications: Current Medications Pharmacy Consult (Consult Rx Perform Med Rec) 1 each MISCELLANE ONCE PRN PRN Reason: Consult order Home Medications Medication Instructions Recorded Confirmed Last Taken Type albuterol sulfate 90 mcg/actuation 2 puff inhalation Q6H PRN 08/01/22 12/22/22 Unknown History aerosol inhaler Shortness Of Breath Or Wheezing escitalopram oxalate 10 mg tablet 10 mg PO DAILY 08/01/22 12/22/22 12/21/22 History insulin lispro 100 unit/mL See Rx Instructions .Route .COMPLEX 08/01/22 12/22/22 12/22/22 History subcutaneous solution trazodone 50 mg tablet 50 mg PO BEDTIME 08/01/22 12/22/22 12/21/22 History umeclidinium 62.5 mcg-vilanterol 1 inh inhalation DAILY 09/07/22 12/22/22 12/21/22 History 25 mcg/actuation powdr for inhalation (Anoro Ellipta) aspirin 81 mg tablet,delayed 81 mg PO DAILY 10/06/22 12/22/22 12/21/22 History release atorvastatin 40 mg tablet 40 mg PO DAILY 10/06/22 12/22/22 12/21/22 History gabapentin 300 mg capsule 300 mg PO TID 10/06/22 12/22/22 12/21/22 History lisinopril 40 mg tablet 40 mg PO DAILY 10/06/22 12/22/22 12/21/22 History metoprolol succinate 100 mg 100 mg PO DAILY 10/06/22 12/22/22 12/21/22 History tablet,extended release 24 hr omeprazole 40 mg capsule,delayed 40 mg PO DAILY@0630 10/06/22 12/22/22 12/21/22 History release ipratropium 0.5 mg-albuterol 3 mg 3 ml inhalation Q8H PRN Shortness 11/03/22 12/22/22 Unknown History (2.5 mg base)/3 mL nebulization Of Breath Or Wheezing soln nicotine (polacrilex) 2 mg gum 2 mg buccal Q1H PRN Nicotine 11/03/22 12/22/22 Unknown History Cravings nicotine 21 mg/24 hr daily 21 mg transdermal DAILY PRN 11/03/22 12/22/22 Unknown History transdermal patch Nicotine Cravings ferrous sulfate 324 mg (65 mg 1 tab PO DAILY 12/22/22 12/22/22 12/21/22 History iron) tablet,delayed release Physical Exam Vital Signs and Narrative: Vital Signs: Last Vital Signs Pulse 88 12/22/22 20:43 Resp 20 12/22/22 20:43 BP 211/86 H 12/22/22 20:43 Pulse Ox 97 12/22/22 15:45 O2 Del Method 12/22/22 15:45 BMI result Body Mass Index 21.6 Constitutional: Alert, in no acute distress. Mental Status: Oriented to person, place and time. Eyes: Pupils are equal, round, and reactive to light. Ear, Nose, and Throat: Oropharynx clear, mucous membranes moist. Ears and nose without deformities. Trachea midline. Respiratory: Clear to auscultation bilaterally. No wheezing, rales, or rhonchi. Cardiovascular: S1, S2 regular. No murmurs, rubs, or gallops. Gastrointestinal: Abdomen soft, diffuse mild tender, non-distended. Normal bowel sounds. Neurologic: Cranial nerves II-XII are grossly intact. No focal neurological deficits. Moves all extremities spontaneously. Skin: No rashes or lesions noted. Musculoskeletal: No cyanosis or clubbing. Extremities: No edema. Psychiatric: Normal mood and affect. Results Labs 12/22/22 16:34 12/22/22 16:34 Labs: Laboratory Results - last 24 hr 12/22/22 12/22/22 12/22/22 16:34 16:34 16:34 MCV 78.2 L MCH 24.4 L MCHC 31.2 RDW 19.5 H Plt Count 371 D MPV 9.5 Immature Gran % (Auto) 0.3 Neut % (Auto) 78.4 H Lymph % (Auto) 15.1 L [place] % (Auto) 4.8 Eos % (Auto) 1.0 Baso % (Auto) 0.4 Lymph # (Auto) 2.0 [place] # (Auto) 0.6 Eos # (Auto) 0.1 Baso # (Auto) 0.1 Abs Immat Gran (auto) 0.04 H Absolute Neuts (auto) 10.2 H Absolute Nucleated RBC 0.000 Nucleated RBC % (auto) 0.0 PT INR D-Dimer High Sensitivty Anion Gap 14 Estim Creat Clear Calc 82.7 Estimated GFR > 60 POC Glucose Random Glucose 69 Calcium 8.8 Magnesium 1.6 Total Bilirubin 0.4 AST 17 ALT 10 Alkaline Phosphatase 93 Troponin I High Sens B-Natriuretic Peptide Total Protein 6.3 L Albumin 3.4 L COVID-19 (XANDER) Negative COVID-19 Clin Com See Note Influenza Type A (MAYELIN) Influenza Type B (MAYELIN) Influenza A & B Note 12/22/22 12/22/22 12/22/22 16:34 16:34 16:34 MCV MCH MCHC RDW Plt Count MPV Immature Gran % (Auto) Neut % (Auto) Lymph % (Auto) [place] % (Auto) Eos % (Auto) Baso % (Auto) Lymph # (Auto) [place] # (Auto) Eos # (Auto) Baso # (Auto) Abs Immat Gran (auto) Absolute Neuts (auto) Absolute Nucleated RBC Nucleated RBC % (auto) PT 10.5 INR 0.9 D-Dimer High Sensitivty 353 Anion Gap Estim Creat Clear Calc Estimated GFR POC Glucose Random Glucose Calcium Magnesium Total Bilirubin AST ALT Alkaline Phosphatase Troponin I High Sens 9.5 D B-Natriuretic Peptide 822 H Total Protein Albumin COVID-19 (XANDER) COVID-19 Clin Com Influenza Type A (MAYELIN) Influenza Type B (MAYELIN) Influenza A & B Note 12/22/22 12/22/22 12/22/22 16:34 17:36 18:24 MCV MCH MCHC RDW Plt Count MPV Immature Gran % (Auto) Neut % (Auto) Lymph % (Auto) [place] % (Auto) Eos % (Auto) Baso % (Auto) Lymph # (Auto) [place] # (Auto) Eos # (Auto) Baso # (Auto) Abs Immat Gran (auto) Absolute Neuts (auto) Absolute Nucleated RBC Nucleated RBC % (auto) PT INR D-Dimer High Sensitivty Anion Gap Estim Creat Clear Calc Estimated GFR POC Glucose 55 L* Random Glucose Calcium Magnesium Total Bilirubin AST ALT Alkaline Phosphatase Troponin I High Sens 7.4 B-Natriuretic Peptide Total Protein Albumin COVID-19 (XANDER) COVID-19 Clin Com Influenza Type A (MAYELIN) Negative Influenza Type B (MAYELIN) Negative Influenza A & B Note See Note Imaging Radiologist's Impressions: Impressions Chest X-Ray 12/22/22 15:52 IMPRESSION: Bronchial wall thickening with mild interstitial prominence. This could be associated with a small airways process versus mild edema. Assessment and Plan (1) Acute heart failure with preserved ejection fraction (HFpEF): Status: Acute (2) Pneumonia: Status: Resolved Plan Pt is a 47-year-old male with a PMH significant for?HFpEF, HTN, insulin-dependent diabetes, COPD on 2L NC, GERD, alcohol use disorder, and YARELIS who presents to the ED with?SOB and chest tightness x2 days. Acute HFpEF exacerbation Likely secondary to pneumonia BNP elevated at 822 Leukocytosis, CTA showed bibasilar infiltrates and moderate-sized bilateral pleural effusions Furosemide 40 mg IV daily Ceftriaxone, azithromycin Follow lytes, mg, I/O Daily weights, low-salt diet Hold home furosemide Cardiology consult Admit to telemetry Hypertensive urgency Patient blood pressure was 211/86 in the ED Patient given amlodipine, BP to 170/81 Continue home antihypertensive meds Monitor BP closely Chest tightness Likely secondary to CHF/pneumonia Serial troponins negative EKG without evidence of ST elevations or depressions Hypoglycemia Patient's POC 55 at time of presentation Patient given sandwich, orange juice Monitor glucose Hold home diabetic meds SSI Alcohol use disorder Pt with history of alcohol withdrawal symptoms Pt denies current daily alcohol use, states last drink was over two weeks ago Abdominal pain Patient complains of chronic abdominal pain that has been ongoing for the past year CT of abdomen and pelvis with no acute findings Follow-up outpatient Full Code Attending:?Dr. Ricardo DVT Prophylaxis: Lovenox Pt will require a hospitalization of at least two nights for treatment of?acute CHF exacerbation in the setting of pneumonia with IV diuretics and antibiotics. Time Spent With Patient Time: Total time managing care of this patient today ____ minutes. Quality Stroke Does the patient have a stroke diagnosis?: No VTE Prior VTE?: No VTE Risk Level:: Medical - moderate - high VTE Device Contraindication: Treatment Not Indicated VTE Drug Contraindication: N/A - Med Ordered
[2022-12-22 21:12] LABS: Glucose, Whole Blood 336 mg/dL (60-115)
[2022-12-22 23:29] VITALS: BP 170/81; PULSE 64; RESP 18; TEMP 37.4; O2SAT 92
[2022-12-22 23:50] LABS: Lactic Acid 0.9 mmol/L (0.5-2.0)
[2022-12-22] MEDS: cefTRIAXone sodium 1 GM in 0.9 % Sodium Chloride 50 ML IV (23:59)
[2022-12-23] MEDS: Azithromycin 500 MG TABLET PO
[2022-12-23 00:49] LABS: Appearance Urine Clear; Color Urine Yellow; Glucose Urine UA 100 mg/dL (Negative); Leukocyte Esterase Urine Negative (Negative); Nitrite Urine Negative (Negative); PH 6.5 (5.0-9.0); Specific Gravity - Urine 1.025 (1.005-1.025); UMIC TRIGGER UACC YES; Urine Blood Small (1+) (Negative); Urine Ketones Negative (Negative); Urine Protein 300 (3+) mg/dL (Neg-Trace)
[2022-12-23 00:54] LABS: Bacteria Urine None Seen (None Seen); Hyaline Casts Urine 0-2 /LPF (0-2); Squamous Epithelial Cell Urine 0-2 /HPF (0-2); WBC Urine 0-5 /HPF (0-5)
[2022-12-23 03:28] VITALS: BP 150/68; PULSE 75; RESP 18; TEMP 36.9; O2SAT 93
[2022-12-23] MEDS: 0.9 % Sodium Chloride Flush 3 ML SYRINGE IVFLUSH ×2 (03:28→07:52)
[2022-12-23 06:11] LABS: Hematocrit 32.4 % (42.0-52.0); Hemoglobin 10.2 g/dl (14.0-18.0); Mean Corpuscular HGB Conc 31.5 g/dl (31.0-36.0); Mean Corpuscular Hemoglobin 24.4 pg (27.0-33.0); Mean Corpuscular Volume 77.5 fL (80.0-98.0); Platelet Count 329 X10*3/uL (160-400); Red Blood Count 4.18 X10*6/uL (4.60-5.80); Red Cell Distribution Width 19.2 % (11.0-16.0); White Blood Count 15.3 X10*3/uL (4.8-10.8)
[2022-12-23 06:19] LABS: Glucose, Whole Blood 193 mg/dL (60-115)
[2022-12-23 06:29] LABS: Anion Gap 14 (12-20); Blood Urea Nitrogen 14 mg/dL (9-16); Calcium 8.6 mg/dL (8.4-10.2); Carbon Dioxide 24 mmol/L (22-29); Chloride 110 mmol/L (96-108); Creatinine Clr Calc Pharmacy 75.3; Estimated Glomerular Filt Rate > 60; Glucose Random 197 mg/dL (60-115); Magnesium 1.5 mg/dL (1.6-2.6); Potassium 4.5 mmol/L (3.3-5.1); Sodium 143 mmol/L (135-145)
[2022-12-23 07:21] VITALS: BP 170/76; PULSE 68; RESP 17; TEMP 37.1; O2SAT 95
[2022-12-23] MEDS: Insulin Lispro 100 UNIT/ML 3 ML VIAL SUBCUT ×4 (07:48→21:28)
[2022-12-23] MEDS: Sucralfate 1 GM TABLET PO ×4 (07:50→21:29)
[2022-12-23] MEDS: hydrALAZINE HCl 50 MG TABLET PO (07:50)
[2022-12-23] MEDS: Escitalopram Oxalate 10 MG TABLET PO (07:50)
[2022-12-23] MEDS: Ferrous Sulfate 324 MG TABLET.DR PO (07:50)
[2022-12-23] MEDS: Atorvastatin Calcium 40 MG TABLET PO (07:51)
[2022-12-23] MEDS: Omeprazole 40 MG CAPSULE.DR PO (07:51)
[2022-12-23] MEDS: amLODIPine Besylate 10 MG TABLET PO (07:51)
[2022-12-23] MEDS: Aspirin Enteric Coated 81 MG TABLET.DR PO (07:51)
[2022-12-23] MEDS: Metoprolol Succinate ER 100 MG TAB.ER.24H PO (07:51)
[2022-12-23] MEDS: lisinopriL 40 MG TABLET PO (07:51)
[2022-12-23] MEDS: Gabapentin 300 MG CAPSULE PO ×3 (07:52→21:29)
[2022-12-23] MEDS: Enoxaparin Sodium 40 MG/0.4 ML SYRINGE SUBCUT (07:52)
[2022-12-23] MEDS: Magnesium Oxide 400 MG TABLET PO ×2 (07:54→18:53)
[2022-12-23] MEDS: Furosemide 40 MG/4 ML VIAL IVPUSH (07:54)
[2022-12-23] MEDS: Acetaminophen 325 MG TABLET 650 MG PO (08:04)
[2022-12-23] MEDS: Nicotine 21 MG PATCH.TD24 TRANSDERMA (08:04)
--- NOTE | 2022-12-23 08:12 | PC.NURSE ---
pt is a/o x 4 no sob/lo noted speaks in full sentences. 02 sat 94% on 2l/m via n/c. lungs - sukh upper cta, sukh lower - crackles noted. heart sound - regular. abd soft and non-tender, bs + x 4 quads. no edema noted. pt c/o 02/06 left chest pain given tylenol 650mg po x 1. nicotine 21gm patch given per pt request. pt aware of plan of care.
[2022-12-23 09:35] VITALS: BP 156/80; PULSE 79; RESP 14; TEMP 37.1; O2SAT 95
[2022-12-23 11:55] VITALS: BP 162/77; PULSE 68; RESP 14; TEMP 37.1; O2SAT 96
[2022-12-23 12:04] LABS: Glucose, Whole Blood 221 mg/dL (60-115)
--- NOTE | 2022-12-23 13:56 | HO.PM.IMPN ---
Subjective Subjective Date of Service: 12/23/22 Interval History: chf excerebation Review of Systems sob still with minimal exertion, Denies any cough or fever or nausea vomiting or dizziness Physical Exam Vital Signs: Vital Signs: Last Vital Signs Temp 98.7 F 12/23/22 11:55 Pulse 68 12/23/22 11:55 Resp 14 12/23/22 11:55 BP 162/77 H 12/23/22 11:55 Pulse Ox 96 12/23/22 11:55 O2 Del Method 12/23/22 11:55 O2 Flow Rate 2 12/23/22 11:55 BMI result Body Mass Index 21.6 Appearance: Alert.? Oriented X3.? not in distress.? cvs: rrr, [id number] , no murmur res: clear to auscultation ,no rhonchii or wheezing abd: no rebound or guarding ,nt, bs present. ext pulses present , no cyanosis ,trace edema. neuro: axo3 , nonfocal. Objective Data Active Medications Acetaminophen (Acetaminophen 325 Mg Tablet) 650 mg PO Q6H PRN PRN Reason: Pain, Mild (Pain Scale 1-3) Last Admin: 12/23/22 08:04 Dose: 650 mg Documented By: NIKI Albuterol Sulfate (Albuterol Sulfate 90 Mcg 8 Gm Inhaler) 2 puff INHALE Q6H PRN PRN Reason: Shortness Of Breath Or Wheezing Albuterol/Ipratropium (Albuterol/Iprat 2.5/0.5mg 3 Ml Ampul.Neb) 3 ml INHALE Q8H PRN PRN Reason: Shortness Of Breath Or Wheezing Amlodipine Besylate (Amlodipine Besylate 10 Mg Tablet) 10 mg PO DAILY [facility]; Protocol Last Admin: 12/23/22 07:51 Dose: 10 mg Documented By: NIKI Aspirin (Aspirin Enteric Coated 81 Mg Tablet.) 81 mg PO DAILY [facility] Last Admin: 12/23/22 07:51 Dose: 81 mg Documented By: NIKI Atorvastatin Calcium (Atorvastatin Calcium 40 Mg Tablet) 40 mg PO DAILY [facility] Last Admin: 12/23/22 07:51 Dose: 40 mg Documented By: NIKI Dextrose (Dextrose 50 % 25 Gm/50 Ml Syringe) 25 gm IVPUSH Q15M PRN; Protocol PRN Reason: per Hypoglycemia Standing Ord. Docusate Sodium (Docusate Sodium 100 Mg Capsule) 100 mg PO DAILY PRN PRN Reason: Constipation Enoxaparin Sodium (Enoxaparin Sodium 40 Mg/0.4 Ml Syringe) 40 mg SUBCUT Q24H [facility] Last Admin: 12/23/22 07:52 Dose: 40 mg Documented By: NIKI Escitalopram Oxalate (Escitalopram Oxalate 10 Mg Tablet) 10 mg PO DAILY [facility] Last Admin: 12/23/22 07:50 Dose: 10 mg Documented By: NIKI Ferrous Sulfate (Ferrous Sulfate 324 Mg Tablet.Dr) 324 mg PO DAILY [facility] Last Admin: 12/23/22 07:50 Dose: 324 mg Documented By: NIKI Furosemide (Furosemide 40 Mg/4 Ml Vial) 40 mg IVPUSH DAILY [facility]; Protocol Last Admin: 12/23/22 07:54 Dose: 40 mg Documented By: NIKI Gabapentin (Gabapentin 300 Mg Capsule) 300 mg PO TID [facility] Last Admin: 12/23/22 07:52 Dose: 300 mg Documented By: NIKI Glucose (Glucose Gel 15 Gm Gel..Gram.) 15 gm PO Q15M PRN; Protocol PRN Reason: per Hypoglycemia Standing Ord. Hydralazine HCl (Hydralazine Hcl 50 Mg Tablet) 50 mg PO TID [facility]; Protocol Last Admin: 12/23/22 07:50 Dose: 50 mg Documented By: NIKI Hydralazine HCl (Hydralazine Hcl 20 Mg/Ml Vial) 5 mg IVPUSH ONCE PRN; Protocol PRN Reason: SBP>180 Ceftriaxone Sodium 1 gm/ (Sodium Chloride) 50 mls @ 100 mls/hr IV Q24H [facility] Azithromycin 500 mg/ Sodium (Chloride) 250 mls @ 125 mls/hr IV Q24H [facility] Insulin Human Lispro (Insulin Lispro 100 Unit/Ml 3 Ml Vial) 0 unit SUBCUT QIDACHS [facility]; Protocol Last Admin: 12/23/22 12:55 Dose: 4 unit Documented By: DAYANA Lisinopril (Lisinopril 40 Mg Tablet) 40 mg PO DAILY [facility]; Protocol Last Admin: 12/23/22 07:51 Dose: 40 mg Documented By: NIKI Magnesium Oxide (Magnesium Oxide 400 Mg Tablet) 400 mg PO BIDPC [facility] Last Admin: 12/23/22 07:54 Dose: 400 mg Documented By: NIKI Metoprolol Succinate (Metoprolol Succinate Er 100 Mg Tab.Er.24h) 100 mg PO DAILY [facility]; Protocol Last Admin: 12/23/22 07:51 Dose: 100 mg Documented By: NIKI Nicotine (Nicotine 21 Mg Patch.Td24) 21 mg TRANSDERMA DAILY PRN PRN Reason: Nicotine Cravings Last Admin: 12/23/22 08:04 Dose: 21 mg Documented By: NIKI Nicotine Polacrilex (Nicotine Polacrilex 2 Mg Gum) 2 mg BUCCAL Q1H PRN PRN Reason: Nicotine Cravings Non-Formulary Medication (Umeclidinium-Vilanterol [Anoro Ellipta]) 1 inhalation INHALE DAILY [facility] Omeprazole (Omeprazole 40 Mg Capsule.Dr) 40 mg PO DAILY@0630 [facility] Last Admin: 12/23/22 07:51 Dose: 40 mg Documented By: NIKI Pharmacy Consult (Consult Rx Perform Med Rec) 1 each MISCELLANE ONCE PRN PRN Reason: Consult order Sodium Chloride (0.9 % Sodium Chloride Flush 3 Ml Syringe) 3 ml IVFLUSH QSHIFT [facility] Last Admin: 12/23/22 07:52 Dose: 3 ml Documented By: NIKI Sucralfate (Sucralfate 1 Gm Tablet) 1 gm PO QIDACHS [facility] Last Admin: 12/23/22 12:55 Dose: 1 gm Documented By: DAYANA Trazodone HCl (Trazodone Hcl 50 Mg Tablet) 50 mg PO BEDTIME [facility] Last Admin: 12/23/22 00:00 Dose: 50 mg Documented By: SERL Labs 12/23/22 06:04 12/23/22 06:04 Labs: Laboratory Results - last 24 hr 12/22/22 12/22/22 12/22/22 16:34 16:34 16:34 MCV 78.2 L MCH 24.4 L MCHC 31.2 RDW 19.5 H Plt Count 371 D MPV 9.5 Immature Gran % (Auto) 0.3 Neut % (Auto) 78.4 H Lymph % (Auto) 15.1 L [place] % (Auto) 4.8 Eos % (Auto) 1.0 Baso % (Auto) 0.4 Lymph # (Auto) 2.0 [place] # (Auto) 0.6 Eos # (Auto) 0.1 Baso # (Auto) 0.1 Abs Immat Gran (auto) 0.04 H Absolute Neuts (auto) 10.2 H Absolute Nucleated RBC 0.000 Nucleated RBC % (auto) 0.0 PT INR D-Dimer High Sensitivty Anion Gap 14 Estim Creat Clear Calc 82.7 Estimated GFR > 60 POC Glucose Random Glucose 69 Lactic Acid Calcium 8.8 Magnesium 1.6 Total Bilirubin 0.4 AST 17 ALT 10 Alkaline Phosphatase 93 Troponin I High Sens B-Natriuretic Peptide Total Protein 6.3 L Albumin 3.4 L Urine Color Urine Appearance Urine pH Ur Specific [place] Urine Protein Urine Glucose (UA) Urine Ketones Urine Blood Urine Nitrite Ur Leukocyte Esterase Urine RBC Urine WBC Ur Squamous Epith Cells Urine Bacteria Hyaline Casts COVID-19 (XANDER) Negative COVID-19 Clin Com See Note Influenza Type A (MAYELIN) Influenza Type B (MAYELIN) Influenza A & B Note 12/22/22 12/22/22 12/22/22 16:34 16:34 16:34 MCV MCH MCHC RDW Plt Count MPV Immature Gran % (Auto) Neut % (Auto) Lymph % (Auto) [place] % (Auto) Eos % (Auto) Baso % (Auto) Lymph # (Auto) [place] # (Auto) Eos # (Auto) Baso # (Auto) Abs Immat Gran (auto) Absolute Neuts (auto) Absolute Nucleated RBC Nucleated RBC % (auto) PT 10.5 INR 0.9 D-Dimer High Sensitivty 353 Anion Gap Estim Creat Clear Calc Estimated GFR POC Glucose Random Glucose Lactic Acid Calcium Magnesium Total Bilirubin AST ALT Alkaline Phosphatase Troponin I High Sens 9.5 D B-Natriuretic Peptide 822 H Total Protein Albumin Urine Color Urine Appearance Urine pH Ur Specific [place] Urine Protein Urine Glucose (UA) Urine Ketones Urine Blood Urine Nitrite Ur Leukocyte Esterase Urine RBC Urine WBC Ur Squamous Epith Cells Urine Bacteria Hyaline Casts COVID-19 (XANDER) COVID-19 Clin Com Influenza Type A (MAYELIN) Influenza Type B (MAYELIN) Influenza A & B Note 12/22/22 12/22/22 12/22/22 16:34 17:36 18:24 MCV MCH MCHC RDW Plt Count MPV Immature Gran % (Auto) Neut % (Auto) Lymph % (Auto) [place] % (Auto) Eos % (Auto) Baso % (Auto) Lymph # (Auto) [place] # (Auto) Eos # (Auto) Baso # (Auto) Abs Immat Gran (auto) Absolute Neuts (auto) Absolute Nucleated RBC Nucleated RBC % (auto) PT INR D-Dimer High Sensitivty Anion Gap Estim Creat Clear Calc Estimated GFR POC Glucose 55 L* Random Glucose Lactic Acid Calcium Magnesium Total Bilirubin AST ALT Alkaline Phosphatase Troponin I High Sens 7.4 B-Natriuretic Peptide Total Protein Albumin Urine Color Urine Appearance Urine pH Ur Specific [place] Urine Protein Urine Glucose (UA) Urine Ketones Urine Blood Urine Nitrite Ur Leukocyte Esterase Urine RBC Urine WBC Ur Squamous Epith Cells Urine Bacteria Hyaline Casts COVID-19 (XANDER) COVID-19 Clin Com Influenza Type A (MAYELIN) Negative Influenza Type B (MAYELIN) Negative Influenza A & B Note See Note 12/22/22 12/22/22 12/23/22 21:08 23:34 00:43 MCV MCH MCHC RDW Plt Count MPV Immature Gran % (Auto) Neut % (Auto) Lymph % (Auto) [place] % (Auto) Eos % (Auto) Baso % (Auto) Lymph # (Auto) [place] # (Auto) Eos # (Auto) Baso # (Auto) Abs Immat Gran (auto) Absolute Neuts (auto) Absolute Nucleated RBC Nucleated RBC % (auto) PT INR D-Dimer High Sensitivty Anion Gap Estim Creat Clear Calc Estimated GFR POC Glucose 336 H Random Glucose Lactic Acid 0.9 Calcium Magnesium Total Bilirubin AST ALT Alkaline Phosphatase Troponin I High Sens B-Natriuretic Peptide Total Protein Albumin Urine Color Yellow Urine Appearance Clear Urine pH 6.5 Ur Specific [place] 1.025 Urine Protein 300 (3+) H Urine Glucose (UA) 100 H Urine Ketones Negative Urine Blood Small (1+) H Urine Nitrite Negative Ur Leukocyte Esterase Negative Urine RBC 6-10 H Urine WBC 0-5 Ur Squamous Epith Cells 0-2 Urine Bacteria None Seen Hyaline Casts 0-2 COVID-19 (XANDER) COVID-19 Clin Com Influenza Type A (MAYELIN) Influenza Type B (MAYELIN) Influenza A & B Note 12/23/22 12/23/22 12/23/22 06:04 06:04 06:16 MCV 77.5 L MCH 24.4 L MCHC 31.5 RDW 19.2 H Plt Count 329 MPV 10.0 Immature Gran % (Auto) Neut % (Auto) Lymph % (Auto) [place] % (Auto) Eos % (Auto) Baso % (Auto) Lymph # (Auto) [place] # (Auto) Eos # (Auto) Baso # (Auto) Abs Immat Gran (auto) Absolute Neuts (auto) Absolute Nucleated RBC 0.000 Nucleated RBC % (auto) 0.0 PT INR D-Dimer High Sensitivty Anion Gap 14 Estim Creat Clear Calc 75.3 Estimated GFR > 60 POC Glucose 193 H Random Glucose 197 H Lactic Acid Calcium 8.6 Magnesium 1.5 L Total Bilirubin AST ALT Alkaline Phosphatase Troponin I High Sens B-Natriuretic Peptide Total Protein Albumin Urine Color Urine Appearance Urine pH Ur Specific [place] Urine Protein Urine Glucose (UA) Urine Ketones Urine Blood Urine Nitrite Ur Leukocyte Esterase Urine RBC Urine WBC Ur Squamous Epith Cells Urine Bacteria Hyaline Casts COVID-19 (XANDER) COVID-19 Clin Com Influenza Type A (MAYELIN) Influenza Type B (MAYELIN) Influenza A & B Note 12/23/22 11:56 MCV MCH MCHC RDW Plt Count MPV Immature Gran % (Auto) Neut % (Auto) Lymph % (Auto) [place] % (Auto) Eos % (Auto) Baso % (Auto) Lymph # (Auto) [place] # (Auto) Eos # (Auto) Baso # (Auto) Abs Immat Gran (auto) Absolute Neuts (auto) Absolute Nucleated RBC Nucleated RBC % (auto) PT INR D-Dimer High Sensitivty Anion Gap Estim Creat Clear Calc Estimated GFR POC Glucose 221 H Random Glucose Lactic Acid Calcium Magnesium Total Bilirubin AST ALT Alkaline Phosphatase Troponin I High Sens B-Natriuretic Peptide Total Protein Albumin Urine Color Urine Appearance Urine pH Ur Specific [place] Urine Protein Urine Glucose (UA) Urine Ketones Urine Blood Urine Nitrite Ur Leukocyte Esterase Urine RBC Urine WBC Ur Squamous Epith Cells Urine Bacteria Hyaline Casts COVID-19 (XANDER) COVID-19 Clin Com Influenza Type A (MAYELIN) Influenza Type B (MAYELIN) Influenza A & B Note Assessment and Plan (1) Acute heart failure with preserved ejection fraction (HFpEF): Status: Acute (2) Hypoglycemia: Status: Acute (3) Hypertensive urgency: Status: Acute Plan 47-year-old male with a PMH significant for?HFpEF, HTN, insulin-dependent diabetes, COPD on 2L NC, GERD, alcohol use disorder, and YARELIS who presents to the ED with?SOB and chest tightness x2 days. Acute HFpEF exacerbation-Likely secondary to pneumonia echo on 08/20: Conclusions: - 1. Normal LV systolic function with restrictive filling pattern 2. Normal cardiac valvular Doppler ? 3. Normal RV systolic pressure ? 4. Trivial pericardial effusion? BNP elevated at 822 Leukocytosis, CTA showed bibasilar infiltrates and moderate-sized bilateral pleural effusions weight was 134lbs on 10/20. Follow lytes, mg, I/O Daily weights, low-salt diet Hold home furosemide Admit to telemetry,blood cultures pending moniter bmp,bnp. Furosemide 40 mg IV daily,Ceftriaxone, azithromycin unncontrolled htn Patient blood pressure was 211/86 in the ED Patient given amlodipine, BP to 170/81 Continue home antihypertensive meds-htn urgency seems resolved will continue lisinopril,adjusted hydralzine ,metoprolol,amlodipine Monitor BP closely ,if blood pressure continue to elevated bp -need nephro eval for bp control. Chest tightness: resolved. Likely secondary to CHF/pneumonia Serial troponins negative EKG without evidence of ST elevations or depressions dm with Hypoglycemia episode:improved ,possible sec to decreased po intake Patient given sandwich, orange juice Monitor glucose Hold home diabetic meds SSI Alcohol use disorder Pt with history of alcohol withdrawal symptoms Pt denies current daily alcohol use, states last drink was over two weeks ago Abdominal pain: denies any abd pain today. Patient complains of chronic abdominal pain that has been ongoing for the past year CT of abdomen and pelvis with no acute findings Follow-up outpatient DVT Prophylaxis: Lovenox Pt will require a hospitalization of at least two nights for treatment of?acute CHF exacerbation in the setting of pneumonia with IV diuretics and antibiotics. Time Spent With Patient Time: Total time managing care of this patient today ____ minutes. Quality Stroke Does the patient have a stroke diagnosis?: No VTE Prior VTE?: No VTE Risk Level:: Medical - moderate - high VTE Device Contraindication: Treatment Not Indicated VTE Drug Contraindication: N/A - Med Ordered
[2022-12-23] MEDS: hydrALAZINE HCl 25 MG TABLET 75 MG PO ×2 (16:07→21:29)
[2022-12-23 17:13] LABS: Glucose, Whole Blood 287 mg/dL (60-115)
[2022-12-23 21:09] VITALS: BP 155/81; PULSE 71; RESP 16; TEMP 36.9; O2SAT 97
[2022-12-23 21:13] LABS: Glucose, Whole Blood 324 mg/dL (60-115)
[2022-12-23] MEDS: traZODone HCL 50 MG TABLET PO ×2 (21:29)
[2022-12-23] MEDS: Azithromycin 500 MG in 0.9 % Sodium Chloride 250 ML 125 MG IV (21:33)
[2022-12-23 22:39] VITALS: PULSE 88; RESP 17; TEMP 36.3; O2SAT 94
[2022-12-24] VITALS (7 sets, daily range): BP systolic 140–180; BP diastolic 70–86; PULSE 73–88; RESP 14–20; TEMP 36.4–37; O2SAT 92–98; BMI 21.7
[2022-12-24] MEDS: cefTRIAXone sodium 1 GM in 0.9 % Sodium Chloride 50 ML IV ×2 (00:49→20:39)
[2022-12-24] MEDS: 0.9 % Sodium Chloride Flush 3 ML SYRINGE IVFLUSH ×4 (00:49→20:40)
[2022-12-24] MEDS: Omeprazole 40 MG CAPSULE.DR PO (06:27)
[2022-12-24 06:53] LABS: Hematocrit 29.9 % (42.0-52.0); Hemoglobin 9.5 g/dl (14.0-18.0); Mean Corpuscular HGB Conc 31.8 g/dl (31.0-36.0); Mean Corpuscular Hemoglobin 24.2 pg (27.0-33.0); Mean Corpuscular Volume 76.1 fL (80.0-98.0); Mean Platelet Volume 10.1 fL (9.4-12.4); Platelet Count 286 X10*3/uL (160-400); Red Blood Count 3.93 X10*6/uL (4.60-5.80); Red Cell Distribution Width 18.7 % (11.0-16.0); White Blood Count 13.7 X10*3/uL (4.8-10.8)
[2022-12-24 07:36] LABS: Glucose, Whole Blood 292 mg/dL (60-115)
[2022-12-24 07:37] LABS: Anion Gap 13 (12-20); Blood Urea Nitrogen 20 mg/dL (9-16); Calcium 8.4 mg/dL (8.4-10.2); Carbon Dioxide 24 mmol/L (22-29); Chloride 108 mmol/L (96-108); Creatinine Clr Calc Pharmacy 55.9; Estimated Glomerular Filt Rate 56; Glucose Random 275 mg/dL (60-115); Potassium 4.7 mmol/L (3.3-5.1); Sodium 140 mmol/L (135-145)
[2022-12-24] MEDS: Atorvastatin Calcium 40 MG TABLET PO (08:11)
[2022-12-24] MEDS: Escitalopram Oxalate 10 MG TABLET PO (08:11)
[2022-12-24] MEDS: lisinopriL 40 MG TABLET PO (08:11)
[2022-12-24] MEDS: Metoprolol Succinate ER 100 MG TAB.ER.24H PO (08:11)
[2022-12-24] MEDS: Ferrous Sulfate 324 MG TABLET.DR PO (08:11)
[2022-12-24] MEDS: Sucralfate 1 GM TABLET PO ×4 (08:11→22:54)
[2022-12-24] MEDS: Aspirin Enteric Coated 81 MG TABLET.DR PO (08:11)
[2022-12-24] MEDS: amLODIPine Besylate 10 MG TABLET PO (08:12)
[2022-12-24] MEDS: Enoxaparin Sodium 40 MG/0.4 ML SYRINGE SUBCUT (08:12)
[2022-12-24] MEDS: Gabapentin 300 MG CAPSULE PO ×3 (08:12→22:53)
[2022-12-24] MEDS: Magnesium Oxide 400 MG TABLET PO ×2 (08:13→16:37)
[2022-12-24] MEDS: Insulin Lispro 100 UNIT/ML 3 ML VIAL SUBCUT ×3 (08:13→22:52)
--- NOTE | 2022-12-24 08:17 | MHC.CM.PN ---
CM met with Patient at bedside. 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 Patient believes he is active with [facility] (RN) and he receives his home O2 from [facility]. Home/resume said services is the goal and CM has initiated and will follow for dc planning. Patient has received Covid vax x3 and his PCP is Dr. Zari Henry.
[2022-12-24] MEDS: hydrALAZINE HCl 50 MG TABLET 100 MG PO ×3 (08:31→22:53)
[2022-12-24] MEDS: Nicotine 21 MG PATCH.TD24 TRANSDERMA (08:31)
--- NOTE | 2022-12-24 10:58 | P.CONNP_ITS ---
History of Present Illness Reason for Consult Consult date: 12/24/22 Requesting physician: Raymon Ocasio Chief Complaint Chief complaint: Edematous state History of Present Illness Narrative: Mr. Quiroga is a 47 yo man with type II DM, resistant HTN, HFpEF, proteinuric CKD stage 1 and multiple recent prior episodes of hypertensive urgency with pulmonary edema who is admitted now with accelerated HTN, pulm edema in the setting of fluid retention and edema. He sees Dr. Hall at [facility]. He also tells me he is being followed by Heme/Onc at [place] for possibly polycythemia and required phlebotomy at one point. He stopped his outpatient furosemide a while back due to symptoms of dizziness with standing which he associated with it. He may have PAD as mentioned in problem list but I do not have records to confirm this. He has DM for at least 11 years and has diabetic neuropathy. He has never had an FL or CVA. He is on high dose lisinopril 40 mg daily, hydralazine and amlodipine for HTN control but does not monitor his BP at home. He denies cocaine use. He takes NSAIDs intermittently. His presenting BP was quite high at 220/110 and he has significant proteinuria on UA. Also, his mother had Esrd and undertook a kidney transplant. Review of Systems Review of Systems increasing edema, abdominal bloating and puffiness prior to admission weight gain prior to admission Comments: generalized fatigue Comments: no visual changes Comments: no chest pain but shortness of breath and orthopnea Comments: no cough or hemoptysis Comments: bloating, no abdominal pain, nausea or vomiting Comments: denies UTIS, no diff voiding or dysuria Comments: some myalgias Comments: ?polycythemia history Comments: metformin intolerance [facility] Past Medical History Medical History Acute on chronic anemia Acute on chronic diastolic (congestive) heart failure Acute respiratory failure KELVIN (acute kidney injury) Anxiety Asthma CHF exacerbation Chronic heart failure with preserved ejection fraction (HFpEF) Congestive heart failure Depression Diabetes HLD (hyperlipidemia) HTN (hypertension) Hypercholesteremia Hyperglycemia due to type 2 diabetes mellitus Hypoxia YARELIS (obstructive sleep apnea) YARELIS (obstructive sleep apnea) PAD (peripheral artery disease) Uncontrolled hypertension Family History Family History Father Alzheimer disease CAD (coronary artery disease) Pertinent family history: MOther with ESRD: semaj -s/p renal transplant Surgical History Surgical History S/P angiogram of extremity Social History Social History Household Members: Family Housing: Apartment Do you presently have visiting nurse or other home services: No Alcohol intake: current Alcohol intake frequency: holidays/special occasions only Alcohol type: hard liquor Patient Tobacco Use Status: Current everyday Tobacco user Tobacco use type: Cigarette Cigarettes Per Day: 10 Years Smoked: >30 e-Cigarette/Vaping Use: Never Used Second Hand Smoke Exposure: No Substance Use Type: Marijuana Advance Directives Date on File: 06/21/21 service: No Current occupational status: disabled Meds Allergies Allergy/AdvReac Type Severity Reaction Status Date / Time dulaglutide [From Trulicity] Allergy Unknown Verified 10/06/22 14:42 metformin [METFORMIN] AdvReac Mild DIARRHEA, Verified 10/06/22 14:42 nausea and vomiting Active Medications: Current Medications Acetaminophen (Acetaminophen 325 Mg Tablet) 650 mg PO Q6H PRN PRN Reason: Pain, Mild (Pain Scale 1-3) Last Admin: 12/23/22 08:04 Dose: 650 mg Albuterol Sulfate (Albuterol Sulfate 90 Mcg 8 Gm Inhaler) 2 puff INHALE Q6H PRN PRN Reason: Shortness Of Breath Or Wheezing Albuterol/Ipratropium (Albuterol/Iprat 2.5/0.5mg 3 Ml Ampul.Neb) 3 ml INHALE Q8H PRN PRN Reason: Shortness Of Breath Or Wheezing Amlodipine Besylate (Amlodipine Besylate 10 Mg Tablet) 10 mg PO DAILY [facility]; Protocol Last Admin: 12/24/22 08:12 Dose: 10 mg Aspirin (Aspirin Enteric Coated 81 Mg Tablet.Dr) 81 mg PO DAILY DIONISIO Last Admin: 12/24/22 08:11 Dose: 81 mg Atorvastatin Calcium (Atorvastatin Calcium 40 Mg Tablet) 40 mg PO DAILY [facility] Last Admin: 12/24/22 08:11 Dose: 40 mg Dextrose (Dextrose 50 % 25 Gm/50 Ml Syringe) 25 gm IVPUSH Q15M PRN; Protocol PRN Reason: per Hypoglycemia Standing Ord. Docusate Sodium (Docusate Sodium 100 Mg Capsule) 100 mg PO DAILY PRN PRN Reason: Constipation Enoxaparin Sodium (Enoxaparin Sodium 40 Mg/0.4 Ml Syringe) 40 mg SUBCUT Q24H [facility] Last Admin: 12/24/22 08:12 Dose: 40 mg Escitalopram Oxalate (Escitalopram Oxalate 10 Mg Tablet) 10 mg PO DAILY [facility] Last Admin: 12/24/22 08:11 Dose: 10 mg Ferrous Sulfate (Ferrous Sulfate 324 Mg Tablet.Dr) 324 mg PO DAILY [facility] Last Admin: 12/24/22 08:11 Dose: 324 mg Gabapentin (Gabapentin 300 Mg Capsule) 300 mg PO TID [facility] Last Admin: 12/24/22 08:12 Dose: 300 mg Glucose (Glucose Gel 15 Gm Gel..Gram.) 15 gm PO Q15M PRN; Protocol PRN Reason: per Hypoglycemia Standing Ord. Hydralazine HCl (Hydralazine Hcl 20 Mg/Ml Vial) 5 mg IVPUSH ONCE PRN; Protocol PRN Reason: SBP>180 Hydralazine HCl (Hydralazine Hcl 50 Mg Tablet) 100 mg PO TID [facility]; Protocol Last Admin: 12/24/22 08:31 Dose: 100 mg Ceftriaxone Sodium 1 gm/ (Sodium Chloride) 50 mls @ 100 mls/hr IV Q24H [facility] Last Infusion: 12/24/22 00:52 Dose: 0 mls/hr Azithromycin 500 mg/ Sodium (Chloride) 250 mls @ 125 mls/hr IV Q24H [facility] Last Infusion: 12/24/22 00:39 Dose: Infused Insulin Human Lispro (Insulin Lispro 100 Unit/Ml 3 Ml Vial) 0 unit SUBCUT QIDACHS [facility]; Protocol Last Admin: 12/24/22 08:13 Dose: 6 unit Lisinopril (Lisinopril 40 Mg Tablet) 40 mg PO DAILY [facility]; Protocol Last Admin: 12/24/22 08:11 Dose: 40 mg Loperamide HCl (Loperamide Hcl 2 Mg Capsule) 2 mg PO Q6H PRN PRN Reason: Diarrhea Magnesium Oxide (Magnesium Oxide 400 Mg Tablet) 400 mg PO BIDPC [facility] Last Admin: 12/24/22 08:13 Dose: 400 mg Metoprolol Succinate (Metoprolol Succinate Er 100 Mg Tab.Er.24h) 100 mg PO DAILY [facility]; Protocol Last Admin: 12/24/22 08:11 Dose: 100 mg Nicotine (Nicotine 21 Mg Patch.Td24) 21 mg TRANSDERMA DAILY PRN PRN Reason: Nicotine Cravings Last Admin: 12/24/22 08:31 Dose: 21 mg Nicotine Polacrilex (Nicotine Polacrilex 2 Mg Gum) 2 mg BUCCAL Q1H PRN PRN Reason: Nicotine Cravings Omeprazole (Omeprazole 40 Mg Capsule.Dr) 40 mg PO DAILY@0630 [facility] Last Admin: 12/24/22 06:27 Dose: 40 mg Pharmacy Consult (Consult Rx Perform Med Rec) 1 each MISCELLANE ONCE PRN PRN Reason: Consult order Salmeterol Xinafoate (Salmeterol Xinafoate 50 Mcg Blst.W.Dev) 1 puff INHALE RB ID [facility] Sodium Chloride (0.9 % Sodium Chloride Flush 3 Ml Syringe) 3 ml IVFLUSH QSHIFT [facility] Last Admin: 12/24/22 08:13 Dose: 3 ml Sucralfate (Sucralfate 1 Gm Tablet) 1 gm PO QIDACHS [facility] Last Admin: 12/24/22 08:11 Dose: 1 gm Tiotropium [place] (Tiotropium [place] 18 Mcg Cap.W.Dev) 1 puff INHALE RDAILY [facility] Trazodone HCl (Trazodone Hcl 50 Mg Tablet) 50 mg PO BEDTIME [facility] Last Admin: 12/23/22 21:29 Dose: 50 mg Home Medications Medication Instructions Recorded Confirmed Last Taken Type albuterol sulfate 90 mcg/actuation 2 puff inhalation Q6H PRN 08/01/22 12/22/22 Unknown History aerosol inhaler Shortness Of Breath Or Wheezing escitalopram oxalate 10 mg tablet 10 mg PO DAILY 08/01/22 12/22/22 12/21/22 History insulin lispro 100 unit/mL See Rx Instructions .Route .COMPLEX 08/01/22 12/22/22 12/22/22 History subcutaneous solution trazodone 50 mg tablet 50 mg PO BEDTIME 08/01/22 12/22/22 12/21/22 History umeclidinium 62.5 mcg-vilanterol 1 inh inhalation DAILY 09/07/22 12/22/22 12/21/22 History 25 mcg/actuation powdr for inhalation (Anoro Ellipta) aspirin 81 mg tablet,delayed 81 mg PO DAILY 10/06/22 12/22/22 12/21/22 History release atorvastatin 40 mg tablet 40 mg PO DAILY 10/06/22 12/22/22 12/21/22 History gabapentin 300 mg capsule 300 mg PO TID 10/06/22 12/22/22 12/21/22 History lisinopril 40 mg tablet 40 mg PO DAILY 10/06/22 12/22/22 12/21/22 History metoprolol succinate 100 mg 100 mg PO DAILY 10/06/22 12/22/22 12/21/22 History tablet,extended release 24 hr omeprazole 40 mg capsule,delayed 40 mg PO DAILY@0630 10/06/22 12/22/22 12/21/22 History release ipratropium 0.5 mg-albuterol 3 mg 3 ml inhalation Q8H PRN Shortness 11/03/22 12/22/22 Unknown History (2.5 mg base)/3 mL nebulization Of Breath Or Wheezing soln nicotine (polacrilex) 2 mg gum 2 mg buccal Q1H PRN Nicotine 11/03/22 12/22/22 Unknown History Cravings nicotine 21 mg/24 hr daily 21 mg transdermal DAILY PRN 11/03/22 12/22/22 Unknown History transdermal patch Nicotine Cravings ferrous sulfate 324 mg (65 mg 1 tab PO DAILY 12/22/22 12/22/22 12/21/22 History iron) tablet,delayed release Physical Exam Vital Signs: Last Vital Signs Temp 97.7 F 12/24/22 07:36 Pulse 73 12/24/22 07:36 Resp 20 12/24/22 07:36 BP 180/86 H 12/24/22 07:36 Pulse Ox 98 12/24/22 07:36 O2 Del Method 12/24/22 07:36 O2 Flow Rate 3 12/24/22 07:36 BMI result Body Mass Index 21.7 Const Other: Pt earing nasal oxygen, able to speak in full sentence, sitting up alert and comfortable General: cooperative, healthy appearing, no acute distress and well groomed Eyes General: appearance normal, both eyes and all related structures Neck Neck: Yes normal visual inspection, Yes full ROM, Yes no lymphadenopathy and Yes trachea midline Chest Chest palpation & inspection: normal inspection of the chest and normal palpation of entire chest wall Resp Auscultation: rales bilateral Cardio Jugular venous distension: JVD elevated Palpation: normal PMI Rate: regular rate Rhythm: regular rhythm Heart sounds: S1 normal heart sound present and S2 normal heart sound present Bruits: Abdominal aortic bruit present (not heard) GI Palpation (GI): Abdominal aortic bruit present (not heard) Extrem Other: No significant periphral edema Results Lab Results 12/24/22 06:23 12/24/22 06:23 Lab results: Chemistry 12/22/22 12/23/22 12/24/22 16:34 06:04 06:23 Sodium 146 H 143 140 Potassium 3.9 4.5 4.7 Carbon Dioxide BUN 15 14 20 H Creatinine 0.91 1.00 1.35 Calcium 8.8 8.6 8.4 Hematology 12/22/22 12/23/22 12/24/22 16:34 06:04 06:23 WBC 13.0 H 15.3 H 13.7 H Hgb 11.2 L 10.2 L 9.5 L Plt Count 371 D 329 286 Urinalysis 12/23/22 00:43 Urine Color Yellow Urine Appearance Clear Urine pH 6.5 Ur Specific [place] 1.025 Urine Protein 300 (3+) H Urine Glucose (UA) 100 H Urine Ketones Negative Urine Blood Small (1+) H Urine Nitrite Negative Ur Leukocyte Esterase Negative Urine RBC 6-10 H Urine WBC 0-5 Ur Squamous Epith Cells 0-2 Hyaline Casts 0-2 Assessment and Plan (1) Hypertensive urgency: Status: Acute Pt has had poorly controlled and resistant HTN despite 4 drug regimen; this may be due to his underlying renal parenchymal disease with proteinuria or he may have primary or secondary aldosteronism; with hx PAD and smoking, need to consider VIANEY (2) Acute kidney injury: Status: Acute Likely due to hypertensive renal injury in the setting of essentially malignancy HTN. He has had other episodes of the same; impaired autoregulation due to lisinopril (3) CKD (chronic kidney disease) stage 1, GFR 90 ml/min or greater: Status: Acute Proteinuric CKD; need to quantitate proteinuria. DDX includes diabetic kidney disease, FSGS, membranous GN, othere GN (less likely), paraprotein related process-will send serologies (4) Proteinuria: Status: Acute See above (5) Acute heart failure with preserved ejection fraction (HFpEF): Status: Acute Likely exacerbated by proteinuria associated sodium retention as seen in nephrotic patients, fluid weight gain but should rule out pheo, VIANEY, primary [place] Plan Recommendations: Continue lisinopril at current dose Increase furosemide to 80 mg tid Iv-he is hypervolemic and this is driving his BP Check aldosterone and renin Check renal artery duplex on Monday or Monday Add SGLT2 inhibitor -farxiga or jardiance for management of proteinuric CKD and recurrent CHF Stop hydralazine Change amlodipine to nifedipine 60 mg bid I ordered anti-PLA2R, serologies/up/creat Time Spent With Patient Time: Total time managing care of this patient today ____ minutes. Procedures Date of Service Date of Service: 12/24/22
--- NOTE | 2022-12-24 11:05 | P.PNIM_ITS ---
Subjective Subjective Date of Service: 12/24/22 Interval History: chf excerebation,uncontrolled htn Review of Systems sob seems to be improved denies any chest pain ,denies any abd pain or nausea or vomitin or fever Physical Exam Vital Signs: Vital Signs: Last Vital Signs Temp 97.7 F 12/24/22 07:36 Pulse 73 12/24/22 07:36 Resp 20 12/24/22 07:36 BP 180/86 H 12/24/22 07:36 Pulse Ox 98 12/24/22 07:36 O2 Del Method 12/24/22 07:36 O2 Flow Rate 3 12/24/22 07:36 BMI result Body Mass Index 21.7 ?Appearance: Alert.? Oriented X3.? not in distress.? cvs: rrr, [id number] , no murmur res: clear to auscultation ,no rhonchii or wheezing abd: no rebound or guarding ,nt, bs present. ext pulses present , no cyanosis ,trace edema. neuro: axo3 , nonfocal. Objective Data Active Medications Acetaminophen (Acetaminophen 325 Mg Tablet) 650 mg PO Q6H PRN PRN Reason: Pain, Mild (Pain Scale 1-3) Last Admin: 12/23/22 08:04 Dose: 650 mg Documented By: NIKI Albuterol Sulfate (Albuterol Sulfate 90 Mcg 8 Gm Inhaler) 2 puff INHALE Q6H PRN PRN Reason: Shortness Of Breath Or Wheezing Albuterol/Ipratropium (Albuterol/Iprat 2.5/0.5mg 3 Ml Ampul.Neb) 3 ml INHALE Q8H PRN PRN Reason: Shortness Of Breath Or Wheezing Amlodipine Besylate (Amlodipine Besylate 10 Mg Tablet) 10 mg PO DAILY [facility]; Protocol Last Admin: 12/24/22 08:12 Dose: 10 mg Documented By: CYNTHIA Aspirin (Aspirin Enteric Coated 81 Mg Tablet.) 81 mg PO DAILY [facility] Last Admin: 12/24/22 08:11 Dose: 81 mg Documented By: CYNTHIA Atorvastatin Calcium (Atorvastatin Calcium 40 Mg Tablet) 40 mg PO DAILY [facility] Last Admin: 12/24/22 08:11 Dose: 40 mg Documented By: CYNTHIA Dextrose (Dextrose 50 % 25 Gm/50 Ml Syringe) 25 gm IVPUSH Q15M PRN; Protocol PRN Reason: per Hypoglycemia Standing Ord. Docusate Sodium (Docusate Sodium 100 Mg Capsule) 100 mg PO DAILY PRN PRN Reason: Constipation Enoxaparin Sodium (Enoxaparin Sodium 40 Mg/0.4 Ml Syringe) 40 mg SUBCUT Q24H [facility] Last Admin: 12/24/22 08:12 Dose: 40 mg Documented By: CYNTHIA Escitalopram Oxalate (Escitalopram Oxalate 10 Mg Tablet) 10 mg PO DAILY [facility] Last Admin: 12/24/22 08:11 Dose: 10 mg Documented By: CYNTHIA Ferrous Sulfate (Ferrous Sulfate 324 Mg Tablet.Dr) 324 mg PO DAILY [facility] Last Admin: 12/24/22 08:11 Dose: 324 mg Documented By: CYNTHIA Gabapentin (Gabapentin 300 Mg Capsule) 300 mg PO TID [facility] Last Admin: 12/24/22 08:12 Dose: 300 mg Documented By: CYNTHIA Glucose (Glucose Gel 15 Gm Gel..Gram.) 15 gm PO Q15M PRN; Protocol PRN Reason: per Hypoglycemia Standing Ord. Hydralazine HCl (Hydralazine Hcl 20 Mg/Ml Vial) 5 mg IVPUSH ONCE PRN; Protocol PRN Reason: SBP>180 Hydralazine HCl (Hydralazine Hcl 50 Mg Tablet) 100 mg PO TID [facility]; Protocol Last Admin: 12/24/22 08:31 Dose: 100 mg Documented By: CYNTHIA Ceftriaxone Sodium 1 gm/ (Sodium Chloride) 50 mls @ 100 mls/hr IV Q24H [facility] Last Infusion: 12/24/22 00:52 Dose: 0 mls/hr Documented By: VALERIE Azithromycin 500 mg/ Sodium (Chloride) 250 mls @ 125 mls/hr IV Q24H [facility] Last Infusion: 12/24/22 00:39 Dose: 0 mls/hr Documented By: VALERIE Insulin Human Lispro (Insulin Lispro 100 Unit/Ml 3 Ml Vial) 0 unit SUBCUT QIDACHS [facility]; Protocol Last Admin: 12/24/22 08:13 Dose: 6 unit Documented By: CYNTHIA Lisinopril (Lisinopril 40 Mg Tablet) 40 mg PO DAILY [facility]; Protocol Last Admin: 12/24/22 08:11 Dose: 40 mg Documented By: CYNTHIA Loperamide HCl (Loperamide Hcl 2 Mg Capsule) 2 mg PO Q6H PRN PRN Reason: Diarrhea Magnesium Oxide (Magnesium Oxide 400 Mg Tablet) 400 mg PO BIDPC [facility] Last Admin: 12/24/22 08:13 Dose: 400 mg Documented By: CYNTHIA Metoprolol Succinate (Metoprolol Succinate Er 100 Mg Tab.Er.24h) 100 mg PO DAILY [facility]; Protocol Last Admin: 12/24/22 08:11 Dose: 100 mg Documented By: CYNTHIA Nicotine (Nicotine 21 Mg Patch.Td24) 21 mg TRANSDERMA DAILY PRN PRN Reason: Nicotine Cravings Last Admin: 12/24/22 08:31 Dose: 21 mg Documented By: CYNTHIA Nicotine Polacrilex (Nicotine Polacrilex 2 Mg Gum) 2 mg BUCCAL Q1H PRN PRN Reason: Nicotine Cravings Omeprazole (Omeprazole 40 Mg Capsule.Dr) 40 mg PO DAILY@0630 [facility] Last Admin: 12/24/22 06:27 Dose: 40 mg Documented By: VALERIE Pharmacy Consult (Consult Rx Perform Med Rec) 1 each MISCELLANE ONCE PRN PRN Reason: Consult order Salmeterol Xinafoate (Salmeterol Xinafoate 50 Mcg Blst.W.Dev) 1 puff INHALE RBID [facility] Sodium Chloride (0.9 % Sodium Chloride Flush 3 Ml Syringe) 3 ml IVFLUSH QSHIFT [facility] Last Admin: 12/24/22 08:13 Dose: 3 ml Documented By: CYNTHIA Sucralfate (Sucralfate 1 Gm Tablet) 1 gm PO QIDACHS [facility] Last Admin: 12/24/22 08:11 Dose: 1 gm Documented By: CYNTHIA Tiotropium [place] (Tiotropium [place] 18 Mcg Cap.W.Dev) 1 puff INHALE RDAILY [facility] Trazodone HCl (Trazodone Hcl 50 Mg Tablet) 50 mg PO BEDTIME [facility] Last Admin: 12/23/22 21:29 Dose: 50 mg Documented By: DAYANA Labs 12/24/22 06:23 12/24/22 06:23 Labs: Laboratory Results - last 24 hr 12/23/22 12/23/22 12/23/22 11:56 17:09 21:09 MCV MCH MCHC RDW Plt Count MPV Absolute Nucleated RBC Nucleated RBC % (auto) Anion Gap Estim Creat Clear Calc Estimated GFR POC Glucose 221 H 287 H 324 H Random Glucose Calcium 12/24/22 12/24/22 12/24/22 06:23 06:23 07:07 MCV 76.1 L MCH 24.2 L MCHC 31.8 RDW 18.7 H Plt Count 286 MPV 10.1 Absolute Nucleated RBC 0.000 Nucleated RBC % (auto) 0.0 Anion Gap 13 Estim Creat Clear Calc 55.9 Estimated GFR 56 POC Glucose 292 H Random Glucose 275 H Calcium 8.4 Microbiology Microbiology Results: Microbiology 12/22/22 23:34 Blood Culture - Preliminary Blood - Venous No growth after 24 hours. 12/22/22 23:34 Blood Culture - Preliminary Blood - Venous No growth after 24 hours. Assessment and Plan (1) Hypertensive urgency: Status: Acute (2) Hypoglycemia: Status: Acute (3) Acute heart failure with preserved ejection fraction (HFpEF): Status: Acute Plan 47-year-old male with a PMH significant for?HFpEF, HTN, insulin-dependent diabetes, COPD on 2L NC, GERD, alcohol use disorder, and YARELIS who presents to the ED with?SOB and chest tightness x2 days. Acute HFpEF exacerbation-Likely secondary to pneumonia echo on 08/20: Conclusions: - 1. Normal LV systolic function with restrictive filling pattern 2. Normal cardiac valvular Doppler ? 3. Normal RV systolic pressure ? 4. Trivial pericardial effusion? BNP elevated at 822 Leukocytosis, CTA showed bibasilar infiltrates and moderate-sized bilateral pleural effusions weight was 134lbs on 10/20. Follow lytes, mg, I/O Daily weights, low-salt diet Hold home furosemide Admit to telemetry,blood cultures pending moniter bmp,bnp. Furosemide 40 mg IV daily,Ceftriaxone, azithromycin unncontrolled htn Patient blood pressure was 211/86 in the ED Patient given amlodipine, BP to 170/81 Continue home antihypertensive meds-htn urgency seems resolved will continue lisinopril,adjusted hydralzine ,metoprolol,amlodipine Monitor BP closely ,if blood pressure continue to elevated bp -need nephro eval for bp control. Chest tightness: resolved. Likely secondary to CHF/pneumonia Serial troponins negative EKG without evidence of ST elevations or depressions dm with Hypoglycemia episode:improved ,possible sec to decreased po intake Patient given sandwich, orange juice Monitor glucose Hold home diabetic meds SSI Alcohol use disorder Pt with history of alcohol withdrawal symptoms Pt denies current daily alcohol use, states last drink was over two weeks ago Abdominal pain: denies any abd pain today. Patient complains of chronic abdominal pain that has been ongoing for the past year CT of abdomen and pelvis with no acute findings Follow-up outpatient DVT Prophylaxis: Lovenox inpatient need:acute CHF exacerbation in the setting of pneumonia with IV diuretics and antibiotics.moniter renal function Time Spent With Patient Time: Total time managing care of this patient today ____ minutes. Quality Stroke Does the patient have a stroke diagnosis?: No VTE Prior VTE?: No VTE Risk Level:: Medical - moderate - high VTE Device Contraindication: Treatment Not Indicated VTE Drug Contraindication: N/A - Med Ordered
[2022-12-24 11:27] LABS: Glucose, Whole Blood 382 mg/dL (60-115)
[2022-12-24] MEDS: Empagliflozin 10 MG TABLET PO (12:26)
[2022-12-24 12:38] LABS: Albumin Level 3.2 g/dL (3.5-5.0)
[2022-12-24 16:20] LABS: Glucose, Whole Blood 147 mg/dL (60-115)
[2022-12-24] MEDS: Furosemide 40 MG/4 ML VIAL IVPUSH (16:36)
[2022-12-24] MEDS: Loperamide HCl 2 MG CAPSULE PO (18:04)
[2022-12-24 18:10] LABS: Leukocytes Stool Qualitative NEGATIVE (NEGATIVE)
[2022-12-24] MEDS: Salmeterol Xinafoate 50 MCG BLST.W.DEV 1 PUFF INHALE (19:39)
[2022-12-24 19:53] LABS: Glucose, Whole Blood 356 mg/dL (60-115)
[2022-12-24] MEDS: traZODone HCL 50 MG TABLET PO (22:54)
[2022-12-24] MEDS: Azithromycin 500 MG in 0.9 % Sodium Chloride 250 ML 250 MG IV (22:58)
[2022-12-25] VITALS (7 sets, daily range): BP systolic 98–162; BP diastolic 45–80; PULSE 74–84; RESP 18–20; TEMP 36.2–37.3; O2SAT 90–97
[2022-12-25] MEDS: ondansetron HCL 4 MG/2 ML VIAL IVPUSH ×2 (00:01→20:42)
[2022-12-25] MEDS: Morphine Sulfate 4 MG/ML CARTRIDGE IVPUSH (00:01)
[2022-12-25] MEDS: 0.9 % Sodium Chloride Flush 3 ML SYRINGE IVFLUSH ×4 (00:02→21:21)
[2022-12-25] MEDS: Omeprazole 40 MG CAPSULE.DR PO (06:39)
[2022-12-25 06:41] LABS: Anion Gap 20 (12-20); Blood Urea Nitrogen 25 mg/dL (9-16); Calcium 9.1 mg/dL (8.4-10.2); Carbon Dioxide 23 mmol/L (22-29); Chloride 105 mmol/L (96-108); Creatinine Clr Calc Pharmacy 38.1; Estimated Glomerular Filt Rate 36; Glucose Random 226 mg/dL (60-115); Potassium 4.6 mmol/L (3.3-5.1); Sodium 143 mmol/L (135-145)
[2022-12-25 07:35] LABS: Glucose, Whole Blood 215 mg/dL (60-115)
[2022-12-25] MEDS: Salmeterol Xinafoate 50 MCG BLST.W.DEV 1 PUFF INHALE (07:58)
[2022-12-25] MEDS: Ferrous Sulfate 324 MG TABLET.DR PO (08:56)
[2022-12-25] MEDS: NIFEdipine ER 90 MG TAB.ER.24 PO (08:56)
[2022-12-25] MEDS: Enoxaparin Sodium 40 MG/0.4 ML SYRINGE SUBCUT (08:56)
[2022-12-25] MEDS: Atorvastatin Calcium 40 MG TABLET PO (08:56)
[2022-12-25] MEDS: Loperamide HCl 2 MG CAPSULE PO (08:56)
[2022-12-25] MEDS: Escitalopram Oxalate 10 MG TABLET PO (08:56)
[2022-12-25] MEDS: Aspirin Enteric Coated 81 MG TABLET.DR PO (08:57)
[2022-12-25] MEDS: hydrALAZINE HCl 50 MG TABLET 100 MG PO (08:58)
[2022-12-25] MEDS: Sucralfate 1 GM TABLET PO ×4 (08:58→21:19)
[2022-12-25] MEDS: Metoprolol Succinate ER 100 MG TAB.ER.24H PO (08:58)
[2022-12-25] MEDS: Insulin Lispro 100 UNIT/ML 3 ML VIAL SUBCUT ×5 (08:58→20:42)
[2022-12-25] MEDS: Empagliflozin 10 MG TABLET PO (08:58)
[2022-12-25] MEDS: Gabapentin 300 MG CAPSULE PO ×3 (08:59→21:19)
[2022-12-25] MEDS: Magnesium Oxide 400 MG TABLET PO ×2 (08:59→16:33)
[2022-12-25 09:36] LABS: Adenovirus F 40/41 Detected (Not Detect.); Astrovirus Not Detected (Not Detect.); Campylobacter Not Detected (Not Detect.); Cryptosporidium Not Detected (Not Detect.); Cyclospora cayetanensis Not Detected (Not Detect.); E. coli EAEC Not Detected (Not Detect.); E. coli EPEC Not Detected (Not Detect.); E. coli ETEC Not Detected (Not Detect.); E. coli STEC Not Detected (Not Detect.); Entamoeba histolytica Not Detected (Not Detect.); Giardia lamblia Not Detected (Not Detect.); Norovirus GI/GII Not Detected (Not Detect.); Plesiomonas shigelloides Not Detected (Not Detect.); Rotavirus A Not Detected (Not Detect.); Salmonella Not Detected (Not Detect.); Shigella sp./EIEC Not Detected (Not Detect.); Vibrio Not Detected (Not Detect.); Vibrio Cholerae Not Detected (Not Detect.); Yersinia enterocolitica Not Detected (Not Detect.)
[2022-12-25 09:37] LABS: Sapovirus Not Detected (Not Detect.)
[2022-12-25 11:45] LABS: Glucose, Whole Blood 430 mg/dL (60-115)
[2022-12-25] MEDS: Nicotine 21 MG PATCH.TD24 TRANSDERMA (13:42)
--- NOTE | 2022-12-25 13:53 | P.PNIM_ITS ---
Subjective Subjective Date of Service: 12/25/22 Interval History: adeno viral uri,pnaumonia,abd pain Review of Systems had some abd pain last night improvin,toshia also improvin no fever or chills or sob Physical Exam Vital Signs: Vital Signs: Last Vital Signs Temp 97.2 F 12/25/22 12:00 Pulse 84 12/25/22 12:00 Resp 20 12/25/22 12:00 BP 131/70 12/25/22 12:00 Pulse Ox 92 12/25/22 12:00 O2 Del Method 12/25/22 12:00 O2 Flow Rate 3 12/25/22 07:55 BMI result Body Mass Index 21.7 Appearance: Alert.? Oriented X3.? not in distress.? cvs: rrr, [id number] , no murmur res: clear to auscultation ,no rhonchii or wheezing abd: no rebound or guarding ,nt, bs present. ext pulses present , no cyanosis ,trace edema. neuro: axo3 , nonfocal. Objective Data Active Medications Acetaminophen (Acetaminophen 325 Mg Tablet) 650 mg PO Q6H PRN PRN Reason: Pain, Mild (Pain Scale 1-3) Last Admin: 12/23/22 08:04 Dose: 650 mg Documented By: NIKI Albuterol Sulfate (Albuterol Sulfate 90 Mcg 8 Gm Inhaler) 2 puff INHALE Q6H PRN PRN Reason: Shortness Of Breath Or Wheezing Albuterol/Ipratropium (Albuterol/Iprat 2.5/0.5mg 3 Ml Ampul.Neb) 3 ml INHALE Q8H PRN PRN Reason: Shortness Of Breath Or Wheezing Aspirin (Aspirin Enteric Coated 81 Mg Tablet.) 81 mg PO DAILY [facility] Last Admin: 12/25/22 08:57 Dose: 81 mg Documented By: LAURA Atorvastatin Calcium (Atorvastatin Calcium 40 Mg Tablet) 40 mg PO DAILY [facility] [place] Last Admin: 12/25/22 08:56 Dose: 40 mg Documented By: LAURA Dextrose (Dextrose 50 % 25 Gm/50 Ml Syringe) 25 gm IVPUSH Q15M PRN; Protocol PRN Reason: per Hypoglycemia Standing Ord. Docusate Sodium (Docusate Sodium 100 Mg Capsule) 100 mg PO DAILY PRN PRN Reason: Constipation Empagliflozin (Empagliflozin 10 Mg Tablet) 10 mg PO DAILY [facility] [place] Last Admin: 12/25/22 08:58 Dose: 10 mg Documented By: LAURA Enoxaparin Sodium (Enoxaparin Sodium 40 Mg/0.4 Ml Syringe) 40 mg SUBCUT Q24H [facility] [place] Last Admin: 12/25/22 08:56 Dose: 40 mg Documented By: LAURA Escitalopram Oxalate (Escitalopram Oxalate 10 Mg Tablet) 10 mg PO DAILY [facility] [place] Last Admin: 12/25/22 08:56 Dose: 10 mg Documented By: LAURA Ferrous Sulfate (Ferrous Sulfate 324 Mg Tablet.Dr) 324 mg PO DAILY [facility] [place] Last Admin: 12/25/22 08:56 Dose: 324 mg Documented By: LAURA Furosemide (Furosemide 40 Mg/4 Ml Vial) 40 mg IVPUSH BID@0900,1800 [facility]; Protocol Last Admin: 12/24/22 16:36 Dose: 40 mg Documented By: CYNTHIA Gabapentin (Gabapentin 300 Mg Capsule) 300 mg PO TID [facility] [place] Last Admin: 12/25/22 08:59 Dose: 300 mg Documented By: LAURA Glucose (Glucose Gel 15 Gm Gel..Gram.) 15 gm PO Q15M PRN; Protocol PRN Reason: per Hypoglycemia Standing Ord. Hydralazine HCl (Hydralazine Hcl 20 Mg/Ml Vial) 5 mg IVPUSH ONCE PRN; Protocol PRN Reason: SBP>180 Hydralazine HCl (Hydralazine Hcl 50 Mg Tablet) 100 mg PO TID [facility] [place]; Protocol Last Admin: 12/25/22 08:58 Dose: 100 mg Documented By: LAURA Ceftriaxone Sodium 1 gm/ (Sodium Chloride) 50 mls @ 100 mls/hr IV Q24H [facility] [place] Last Infusion: 12/24/22 23:04 Dose: 0 mls/hr Documented By: IRMA Azithromycin 500 mg/ Sodium (Chloride) 250 mls @ 125 mls/hr IV Q24H [facility] [place] Last Infusion: 12/25/22 00:19 Dose: 0 mls/hr Documented By: VALERIE Insulin Human Lispro (Insulin Lispro 100 Unit/Ml 3 Ml Vial) 0 unit SUBCUT QIDACHS [facility]; Protocol Last Admin: 12/25/22 12:15 Dose: 14 unit Documented By: LAURA Lisinopril (Lisinopril 40 Mg Tablet) 40 mg PO DAILY [facility] [place]; Protocol Last Admin: 12/24/22 08:11 Dose: 40 mg Documented By: CYNTHIA Loperamide HCl (Loperamide Hcl 2 Mg Capsule) 2 mg PO Q6H PRN PRN Reason: Diarrhea Last Admin: 12/25/22 08:56 Dose: 2 mg Documented By: LAURA Magnesium Oxide (Magnesium Oxide 400 Mg Tablet) 400 mg PO BIDPC [facility] [place] Last Admin: 12/25/22 08:59 Dose: 400 mg Documented By: LAURA Metoprolol Succinate (Metoprolol Succinate Er 100 Mg Tab.Er.24h) 100 mg PO DAILY [facility] [place]; Protocol Last Admin: 12/25/22 08:58 Dose: 100 mg Documented By: LAURA Nicotine (Nicotine 21 Mg Patch.Td24) 21 mg TRANSDERMA DAILY PRN PRN Reason: Nicotine Cravings Last Admin: 12/25/22 13:42 Dose: 21 mg Documented By: LAURA Nicotine Polacrilex (Nicotine Polacrilex 2 Mg Gum) 2 mg BUCCAL Q1H PRN PRN Reason: Nicotine Cravings Nifedipine (Nifedipine Er 90 Mg Tab.Er.24) 90 mg PO DAILY [facility] [place]; Protocol Last Admin: 12/25/22 08:56 Dose: 90 mg Documented By: LAURA Omeprazole (Omeprazole 40 Mg Capsule.Dr) 40 mg PO DAILY@0630 [facility] [place] Last Admin: 12/25/22 06:39 Dose: 40 mg Documented By: VALERIE Ondansetron HCl (Ondansetron Hcl 4 Mg/2 Ml Vial) 4 mg IVPUSH Q8H PRN PRN Reason: Nausea and Vomiting Last Admin: 12/25/22 00:01 Dose: 4 mg Documented By: VALERIE Pharmacy Consult (Consult Rx Perform Med Rec) 1 each MISCELLANE ONCE PRN PRN Reason: Consult order Salmeterol Xinafoate (Salmeterol Xinafoate 50 Mcg Blst.W.Dev) 1 puff INHALE RBID [facility] Last Admin: 12/25/22 07:58 Dose: 1 puff Documented By: ANN Sodium Chloride (0.9 % Sodium Chloride Flush 3 Ml Syringe) 3 ml IVFLUSH QSHIFT [facility] Last Admin: 12/25/22 08:58 Dose: 3 ml Documented By: LAURA Sucralfate (Sucralfate 1 Gm Tablet) 1 gm PO QIDACHS [facility] [place] Last Admin: 12/25/22 12:15 Dose: 1 gm Documented By: LAURA Tiotropium Huron (Tiotropium Huron 18 Mcg Cap.W.Dev) 1 puff INHALE RDAILY [facility] [place] Last Admin: 12/25/22 07:58 Dose: 1 puff Documented By: ANN Trazodone HCl (Trazodone Hcl 50 Mg Tablet) 50 mg PO BEDTIME [facility] [place] Last Admin: 12/24/22 22:54 Dose: 50 mg Documented By: DORIS-JOZEB Labs 12/24/22 06:23 12/25/22 05:27 Labs: Laboratory Results - last 24 hr 12/24/22 12/24/22 12/24/22 15:18 16:09 19:46 Anion Gap Estim Creat Clear Calc Estimated GFR POC Glucose 147 H 356 H* Random Glucose Calcium Stool Leukocytes, Qual NEGATIVE Stl C. cayetanensis PCR Stool Rotavirus A PCR Stl Adenov F / PCR Stool Astrovirus (PCR) Stool Campylobacter PCR Stool Cryptosporidium PCR Stl Sh Tox Pr E STEC PCR Stool E coli O157 PCR Stl Enterotoxigenic E PCR Stool EPEC (PCR) Stool EAEC (PCR) Stl E. histolytica PCR Stool Giardia Lamblia PCR Stl P. shigelloides PCR Stool Salmonella PCR Stool Sapovirus (PCR) Stl Shigella/EIEC PCR St Y.enterocolitica PCR Stool Vibrio (PCR) Stl Vibrio cholerae PCR Stl Norovirus GI/GII PCR 12/24/22 12/25/22 12/25/22 Unknown 05:27 07:18 Anion Gap 20 Estim Creat Clear Calc 38.1 Estimated GFR 36 POC Glucose 215 H Random Glucose 226 H Calcium 9.1 D Stool Leukocytes, Qual Stl C. cayetanensis PCR Not Detected Stool Rotavirus A PCR Not Detected Stl Adenov F 40/ PCR Detected A Stool Astrovirus (PCR) Not Detected Stool Campylobacter PCR Not Detected Stool Cryptosporidium PCR Not Detected Stl Sh Tox Pr E STEC PCR Not Detected Stool E coli O157 PCR Not applicable Stl Enterotoxigenic E PCR Not Detected Stool EPEC (PCR) Not Detected Stool EAEC (PCR) Not Detected Stl E. histolytica PCR Not Detected Stool Giardia Lamblia PCR Not Detected Stl P. shigelloides PCR Not Detected Stool Salmonella PCR Not Detected Stool Sapovirus (PCR) Not Detected Stl Shigella/EIEC PCR Not Detected St Y.enterocolitica PCR Not Detected Stool Vibrio (PCR) Not Detected Stl Vibrio cholerae PCR Not Detected Stl Norovirus GI/GII PCR Not Detected 12/25/22 11:22 Anion Gap Estim Creat Clear Calc Estimated GFR POC Glucose 430 H* Random Glucose Calcium Stool Leukocytes, Qual Stl C. cayetanensis PCR Stool Rotavirus A PCR Stl Adenov F 40/41 PCR Stool Astrovirus (PCR) Stool Campylobacter PCR Stool Cryptosporidium PCR Stl Sh Tox Pr E STEC PCR Stool E coli O157 PCR Stl Enterotoxigenic E PCR Stool EPEC (PCR) Stool EAEC (PCR) Stl E. histolytica PCR Stool Giardia Lamblia PCR Stl P. shigelloides PCR Stool Salmonella PCR Stool Sapovirus (PCR) Stl Shigella/EIEC PCR St Y.enterocolitica PCR Stool Vibrio (PCR) Stl Vibrio cholerae PCR Stl Norovirus GI/GII PCR Microbiology Microbiology Results: Microbiology 12/22/22 23:34 Blood Culture - Preliminary Blood - Venous No growth after 48 hours. 12/22/22 23:34 Blood Culture - Preliminary Blood - Venous No growth after 48 hours. Assessment and Plan (1) Hypertensive urgency: Status: Acute (2) Acute heart failure with preserved ejection fraction (HFpEF): Status: Acute (3) CKD (chronic kidney disease) stage 1, GFR 90 ml/min or greater: Status: Acute (4) Proteinuria: Status: Acute (5) Hyperglycemia: Status: Acute (6) KELVIN (acute kidney injury): Status: Acute Plan 47-year-old male with a PMH significant for?HFpEF, HTN, insulin-dependent diabetes, COPD on 2L NC, GERD, alcohol use disorder, and YARELIS who presents to the ED with?SOB and chest tightness x2 days. Acute HFpEF exacerbation-Likely secondary to pneumonia echo on 08/20: Conclusions: - 1. Normal LV systolic function with restrictive filling pattern 2. Normal cardiac valvular Doppler ? 3. Normal RV systolic pressure ? 4. Trivial pericardial effusion? BNP elevated at 822 Leukocytosis, CTA showed bibasilar infiltrates and moderate-sized bilateral ple ural effusions weight was 134lbs on 10/20. ? if urinary output monitered -d/w staff to moniter urinary output closely. Daily weights, low-salt diet Hold home furosemide Admit to telemetry,blood cultures pending moniter bmp,bnp.,Ceftriaxone, azithromycin hold lasix due to kelvin unncontrolled htn blood pressure improvin-currently in sbp 130-160 continue metoprolol-may need to switch to coreg if blood pressure does not improve ,nifedipine. hold lisinopril due to kelvin,will taper hydralzine to lower dose if possible. Monitor BP closely ,if blood pressure continue to elevated bp -need nephro eval for bp control. Chest tightness: resolved. Likely secondary to CHF/pneumonia Serial troponins negative EKG without evidence of ST elevations or depressions dm with Hypoglycemia episode intially ,currently hyperglycemia : dm diet Monitor glucose, Hba1c levels Hold home diabetic meds fs with adjusted SSI,jardiance Alcohol use disorder Pt with history of alcohol withdrawal symptoms Pt denies current daily alcohol use, states last drink was over two weeks ago Abdominal pain: denies any abd pain today. Patient complains of chronic abdominal pain that has been ongoing for the past year CT of abdomen and pelvis with no acute findings Follow-up outpatient. KELVIN on ckd 3:with proteinuria Added renal duplex, serology and immunology studies Blood pressure is improving, will hold Lasix, lisinopril Nephrology follow-up DVT Prophylaxis: Lovenox inpatient need:acute CHF exacerbation in the setting of pneumonia with IV diuretics and antibiotics.moniter renal function Time Spent With Patient Time: Total time managing care of this patient today ____ minutes. Quality Stroke Does the patient have a stroke diagnosis?: No VTE Prior VTE?: No VTE Risk Level:: Medical - moderate - high VTE Device Contraindication: Treatment Not Indicated VTE Drug Contraindication: N/A - Med Ordered
--- NOTE | 2022-12-25 14:35 | P.PNNP_ITS ---
Subjective Subjective Date of Service: 12/25/22 Interval history: Feeling better Less sob has viral pneumonia as well BP much improved Physical Exam Vital Signs: Vital Signs: Last Vital Signs Temp 97.2 F 12/25/22 12:00 Pulse 84 12/25/22 12:00 Resp 20 12/25/22 12:00 BP 131/70 12/25/22 12:00 Pulse Ox 92 12/25/22 12:00 O2 Del Method 12/25/22 12:00 O2 Flow Rate 3 12/25/22 07:55 BMI result Body Mass Index 21.7 Const: Other: Pt earing nasal oxygen, able to speak in full sentence, sitting up alert and comfortable General: cooperative, healthy appearing, no acute distress and well groomed Eyes: General: appearance normal, both eyes and all related structures Neck: Neck: Yes normal visual inspection, Yes full ROM, Yes no lymphadenopathy and Yes trachea midline Chest: Chest palpation & inspection: normal inspection of the chest and normal palpation of entire chest wall Resp: Auscultation: rales bilateral Cardio: Jugular venous distension: JVD elevated Palpation: normal PMI Rate: regular rate Rhythm: regular rhythm Heart sounds: S1 normal heart sound present and S2 normal heart sound present Bruits: Abdominal aortic bruit present (not heard) GI: Palpation (GI): Abdominal aortic bruit present (not heard) Extrem: Other: No significant periphral edema Objective Data Labs 12/24/22 06:23 12/25/22 05:27 Labs: Laboratory Results - last 24 hr 12/24/22 12/24/22 12/24/22 15:18 16:09 19:46 Sodium Potassium Chloride Carbon Dioxide Anion Gap BUN Creatinine Estim Creat Clear Calc Estimated GFR POC Glucose 147 H 356 H* Random Glucose Calcium Stool Leukocytes, Qual NEGATIVE Stl C. cayetanensis PCR Stool Rotavirus A PCR Stl Adenov F 40/41 PCR Stool Astrovirus (PCR) Stool Campylobacter PCR Stool Cryptosporidium PCR Stl Sh Tox Pr E STEC PCR Stool E coli O157 PCR Stl Enterotoxigenic E PCR Stool EPEC (PCR) Stool EAEC (PCR) Stl E. histolytica PCR Stool Giardia Lamblia PCR Stl P. shigelloides PCR Stool Salmonella PCR Stool Sapovirus (PCR) Stl Shigella/EIEC PCR St Y.enterocolitica PCR Stool Vibrio (PCR) Stl Vibrio cholerae PCR Stl Norovirus GI/GII PCR 12/24/22 12/25/22 12/25/22 Unknown 05:27 07:18 Sodium 143 Potassium 4.6 Chloride 105 Carbon Dioxide 23 Anion Gap 20 BUN 25 H Creatinine 1.98 H Estim Creat Clear Calc 38.1 Estimated GFR 36 POC Glucose 215 H Random Glucose 226 H Calcium 9.1 D Stool Leukocytes, Qual Stl C. cayetanensis PCR Not Detected Stool Rotavirus A PCR Not Detected Stl Adenov F 40/ PCR Detected A Stool Astrovirus (PCR) Not Detected Stool Campylobacter PCR Not Detected Stool Cryptosporidium PCR Not Detected Stl Sh Tox Pr E STEC PCR Not Detected Stool E coli O157 PCR Not applicable Stl Enterotoxigenic E PCR Not Detected Stool EPEC (PCR) Not Detected Stool EAEC (PCR) Not Detected Stl E. histolytica PCR Not Detected Stool Giardia Lamblia PCR Not Detected Stl P. shigelloides PCR Not Detected Stool Salmonella PCR Not Detected Stool Sapovirus (PCR) Not Detected Stl Shigella/EIEC PCR Not Detected St Y.enterocolitica PCR Not Detected Stool Vibrio (PCR) Not Detected Stl Vibrio cholerae PCR Not Detected Stl Norovirus GI/GII PCR Not Detected 12/25/22 11:22 Sodium Potassium Chloride Carbon Dioxide Anion Gap BUN Creatinine Estim Creat Clear Calc Estimated GFR POC Glucose 430 H* Random Glucose Calcium Stool Leukocytes, Qual Stl C. cayetanensis PCR Stool Rotavirus A PCR Stl Adenov F PCR Stool Astrovirus (PCR) Stool Campylobacter PCR Stool Cryptosporidium PCR Stl Sh Tox Pr E STEC PCR Stool E coli O157 PCR Stl Enterotoxigenic E PCR Stool EPEC (PCR) Stool EAEC (PCR) Stl E. histolytica PCR Stool Giardia Lamblia PCR Stl P. shigelloides PCR Stool Salmonella PCR Stool Sapovirus (PCR) Stl Shigella/EIEC PCR St Y.enterocolitica PCR Stool Vibrio (PCR) Stl Vibrio cholerae PCR Stl Norovirus GI/GII PCR Microbiology Microbiology Results: Microbiology 12/22/22 23:34 Blood - Venous Blood Culture - Preliminary No growth after 48 hours. 12/22/22 23:34 Blood - Venous Blood Culture - Preliminary No growth after 48 hours. Procedures Date of Service Date of Service: 12/25/22 Assessment & Plan Assessment and plan (1) KELVIN (acute kidney injury): Status: Acute Assessment and Plan: Due to control of BP after malignant phase of HTN; for now, continue CASSIUS I but if creat worsens tomorrow, hold and use alternative; hold further diuretics t monique (2) Hypertensive urgency: Status: Acute Assessment and Plan: BP now well controlled (3) Acute heart failure with preserved ejection fraction (HFpEF): Status: Acute Assessment and Plan: Likely due to acute diastolic dysfunction in setting of malignant htn; not excessively vol overloaded (4) CKD (chronic kidney disease) stage 1, GFR 90 ml/min or greater: Status: Acute Assessment and Plan: NOw kelvin on CKD due to malignant htn now controlled with impaired autoregulation (5) Proteinuria: Status: Acute Assessment and Plan: DKD is likely cause, serologies ordered (6) Hyperglycemia: Status: Acute Plan Ok to continue lisinopril for now No further diuretics today If creat up tomorrow then hold CASSIUS I UP/creat await aldosterone/renin consider duplex of renal arteries-smoker and PAD treating pneumonia Time Spent With Patient Time: Total time managing care of this patient today ____ minutes. Progress Note: Quality Stroke Does the patient have a stroke diagnosis?: No
[2022-12-25 16:15] LABS: Glucose, Whole Blood 236 mg/dL (60-115)
[2022-12-25] MEDS: 0.9 % Sodium Chloride 1,000 ML 250 ML IVCONT (16:27)
[2022-12-25 19:32] LABS: Glucose, Whole Blood 388 mg/dL (60-115)
[2022-12-25] MEDS: cefTRIAXone sodium 1 GM in 0.9 % Sodium Chloride 50 ML IV (20:42)
[2022-12-25] MEDS: Azithromycin 500 MG in 0.9 % Sodium Chloride 250 ML 125 MG IV (21:16)
[2022-12-25] MEDS: traZODone HCL 50 MG TABLET PO (21:19)
[2022-12-25] MEDS: Acetaminophen 325 MG TABLET 650 MG PO (22:00)
[2022-12-25] MEDS: oxyCODONE HCl Immed Release 5 MG TABLET PO (23:54)
[2022-12-26] VITALS (9 sets, daily range): BP systolic 98–157; BP diastolic 64–80; PULSE 70–109; RESP 18–20; TEMP 36.2–37; O2SAT 94–98
[2022-12-26 04:18] LABS: ~HepC Num1 0.11 S/CO (0.00-0.79); ~Hepatitis C Antibody Nonreactive (Nonreactive)
[2022-12-26] MEDS: Omeprazole 40 MG CAPSULE.DR PO (05:04)
[2022-12-26] MEDS: Salmeterol Xinafoate 50 MCG BLST.W.DEV 1 PUFF INHALE ×2 (07:53→19:45)
[2022-12-26 07:57] LABS: Glucose, Whole Blood 227 mg/dL (60-115)
[2022-12-26 08:39] LABS: Blood Urea Nitrogen 31 mg/dL (9-16); Calcium 8.4 mg/dL (8.4-10.2); Creatinine Clr Calc Pharmacy 27.5; Estimated Glomerular Filt Rate 25; Glucose Random 216 mg/dL (60-115)
[2022-12-26 08:47] LABS: Anion Gap 14 (12-20); Carbon Dioxide 20 mmol/L (22-29); Chloride 106 mmol/L (96-108); Potassium 5.3 mmol/L (3.3-5.1); Sodium 135 mmol/L (135-145)
[2022-12-26] MEDS: Ferrous Sulfate 324 MG TABLET.DR PO (09:55)
[2022-12-26] MEDS: 0.9 % Sodium Chloride Flush 3 ML SYRINGE IVFLUSH ×3 (09:55→21:32)
[2022-12-26] MEDS: Atorvastatin Calcium 40 MG TABLET PO (09:55)
[2022-12-26] MEDS: Aspirin Enteric Coated 81 MG TABLET.DR PO (09:55)
[2022-12-26] MEDS: Empagliflozin 10 MG TABLET PO (09:56)
[2022-12-26] MEDS: Magnesium Oxide 400 MG TABLET PO ×2 (09:56→17:10)
[2022-12-26] MEDS: Escitalopram Oxalate 10 MG TABLET PO (09:56)
[2022-12-26] MEDS: Enoxaparin Sodium 40 MG/0.4 ML SYRINGE SUBCUT (09:58)
[2022-12-26 11:10] LABS: Glucose, Whole Blood 195 mg/dL (60-115)
--- NOTE | 2022-12-26 11:14 | P.PNIM_ITS ---
Subjective Subjective Date of Service: 12/26/22 Interval History: adeno viral uri,pnaumonia,abd pain Review of Systems similar abd pain and dirrhae no fever or chills or sob Physical Exam Vital Signs: Vital Signs: Last Vital Signs Temp 97.2 F 12/26/22 11:08 Pulse 86 12/26/22 11:08 Resp 20 12/26/22 11:08 BP 145/80 H 12/26/22 11:08 Pulse Ox 94 12/26/22 11:08 O2 Del Method 12/26/22 11:08 O2 Flow Rate 3 12/26/22 07:36 BMI result Body Mass Index 21.7 Appearance: Alert.? Oriented X3.? not in distress.? cvs: rrr, [id number] , no murmur res: clear to auscultation ,no rhonchii or wheezing abd: no rebound or guarding ,nt, bs present. ext pulses present , no cyanosis ,trace edema. neuro: axo3 , nonfocal. Objective Data Active Medications Acetaminophen (Acetaminophen 325 Mg Tablet) 650 mg PO Q6H PRN PRN Reason: Pain, Mild (Pain Scale 1-3) Last Admin: 12/25/22 22:00 Dose: 650 mg Documented By: ANDREW Albuterol Sulfate (Albuterol Sulfate 90 Mcg 8 Gm Inhaler) 2 puff INHALE Q6H PRN PRN Reason: Shortness Of Breath Or Wheezing Albuterol/Ipratropium (Albuterol/Iprat 2.5/0.5mg 3 Ml Ampul.Neb) 3 ml INHALE Q8H PRN PRN Reason: Shortness Of Breath Or Wheezing Aspirin (Aspirin Enteric Coated 81 Mg Tablet.) 81 mg PO DAILY [facility] Last Admin: 12/26/22 09:55 Dose: 81 mg Documented By: SYDNIE Atorvastatin Calcium (Atorvastatin Calcium 40 Mg Tablet) 40 mg PO DAILY [facility] Last Admin: 12/26/22 09:55 Dose: 40 mg Documented By: SYDNIE Dextrose (Dextrose 50 % 25 Gm/50 Ml Syringe) 25 gm IVPUSH Q15M PRN; Protocol PRN Reason: per Hypoglycemia Standing Ord. Docusate Sodium (Docusate Sodium 100 Mg Capsule) 100 mg PO DAILY PRN PRN Reason: Constipation Empagliflozin (Empagliflozin 10 Mg Tablet) 10 mg PO DAILY [facility] Last Admin: 12/26/22 09:56 Dose: 10 mg Documented By: SYDNIE Enoxaparin Sodium (Enoxaparin Sodium 40 Mg/0.4 Ml Syringe) 40 mg SUBCUT Q24H [facility] Last Admin: 12/26/22 09:58 Dose: 40 mg Documented By: SYDNIE Escitalopram Oxalate (Escitalopram Oxalate 10 Mg Tablet) 10 mg PO DAILY [facility] Last Admin: 12/26/22 09:56 Dose: 10 mg Documented By: SYDNIE Ferrous Sulfate (Ferrous Sulfate 324 Mg Tablet.Dr) 324 mg PO DAILY [facility] Last Admin: 12/26/22 09:55 Dose: 324 mg Documented By: SYDNIE Furosemide (Furosemide 40 Mg/4 Ml Vial) 40 mg IVPUSH BID@0900,1800 [facility]; Protocol Last Admin: 12/24/22 16:36 Dose: 40 mg Documented By: CYNTHIA Gabapentin (Gabapentin 300 Mg Capsule) 300 mg PO TID [facility] Last Admin: 12/25/22 21:19 Dose: 300 mg Documented By: ANDREW Glucose (Glucose Gel 15 Gm Gel..Gram.) 15 gm PO Q15M PRN; Protocol PRN Reason: per Hypoglycemia Standing Ord. Hydralazine HCl (Hydralazine Hcl 20 Mg/Ml Vial) 5 mg IVPUSH ONCE PRN; Protocol PRN Reason: SBP>180 Hydralazine HCl (Hydralazine Hcl 25 Mg Tablet) 75 mg PO TID [facility]; Protocol Last Admin: 12/25/22 16:32 Dose: Not Given Documented By: LAURA Non-Admin Reason: Physician Held Med Ceftriaxone Sodium 1 gm/ (Sodium Chloride) 50 mls @ 100 mls/hr IV Q24H [facility] Last Infusion: 12/25/22 21:20 Dose: 0 mls/hr Documented By: ANDREW Azithromycin 500 mg/ Sodium (Chloride) 250 mls @ 125 mls/hr IV Q24H [facility] Last Infusion: 12/26/22 00:17 Dose: 0 mls/hr Documented By: ANDREW Insulin Human Lispro (Insulin Lispro 100 Unit/Ml 3 Ml Vial) 0 unit SUBCUT QIDACHS [facility]; Protocol Last Admin: 12/26/22 09:53 Dose: Not Given Documented By: SYDNIE Non-Admin Reason: NPO Lisinopril (Lisinopril 40 Mg Tablet) 40 mg PO DAILY [facility]; Protocol Last Admin: 12/24/22 08:11 Dose: 40 mg Documented By: CYNTHIA Loperamide HCl (Loperamide Hcl 2 Mg Capsule) 2 mg PO Q6H PRN PRN Reason: Diarrhea Last Admin: 12/25/22 08:56 Dose: 2 mg Documented By: LAURA Magnesium Oxide (Magnesium Oxide 400 Mg Tablet) 400 mg PO BIDPC [facility] Last Admin: 12/26/22 09:56 Dose: 400 mg Documented By: SYDNIE Metoprolol Succinate (Metoprolol Succinate Er 100 Mg Tab.Er.24h) 100 mg PO DAILY [facility]; Protocol Last Admin: 12/26/22 09:54 Dose: Not Given Documented By: SYDNIE Non-Admin Reason: Physician Held Med Nicotine (Nicotine 21 Mg Patch.Td24) 21 mg TRANSDERMA DAILY PRN PRN Reason: Nicotine Cravings Last Admin: 12/25/22 13:42 Dose: 21 mg Documented By: LAURA Nicotine Polacrilex (Nicotine Polacrilex 2 Mg Gum) 2 mg BUCCAL Q1H PRN PRN Reason: Nicotine Cravings Nifedipine (Nifedipine Er 90 Mg Tab.Er.24) 90 mg PO DAILY [facility]; Protocol Last Admin: 12/25/22 08:56 Dose: 90 mg Documented By: LAURA Omeprazole (Omeprazole 40 Mg Capsule.Dr) 40 mg PO DAILY@0630 [facility] Last Admin: 12/26/22 05:04 Dose: 40 mg Documented By: ANDREW Ondansetron HCl (Ondansetron Hcl 4 Mg/2 Ml Vial) 4 mg IVPUSH Q8H PRN PRN Reason: Nausea and Vomiting Last Admin: 12/25/22 20:42 Dose: 4 mg Documented By: ANDREW Pharmacy Consult (Consult Rx Perform Med Rec) 1 each MISCELLANE ONCE PRN PRN Reason: Consult order Salmeterol Xinafoate (Salmeterol Xinafoate 50 Mcg Blst.W.Dev) 1 puff INHALE RBID [facility] Last Admin: 12/26/22 07:53 Dose: 1 puff Documented By: BRE Sodium Chloride (0.9 % Sodium Chloride Flush 3 Ml Syringe) 3 ml IVFLUSH QSHIFT [facility] Last Admin: 12/26/22 09:55 Dose: 3 ml Documented By: SYDNIE Sucralfate (Sucralfate 1 Gm Tablet) 1 gm PO QIDACHS [facility] Last Admin: 12/26/22 09:53 Dose: Not Given Documented By: SYDNIE Non-Admin Reason: NPO Tiotropium [place] (Tiotropium [place] 18 Mcg Cap.W.Dev) 1 puff INHALE RDAILY [facility] Last Admin: 12/26/22 07:53 Dose: 1 puff Documented By: BRE Trazodone HCl (Trazodone Hcl 50 Mg Tablet) 50 mg PO BEDTIME [facility] Last Admin: 12/25/22 21:19 Dose: 50 mg Documented By: ANDREW Labs 12/24/22 06:23 12/26/22 08:15 Labs: Laboratory Results - last 24 hr 12/24/22 12/25/22 12/25/22 11:28 11:22 16:05 Anion Gap Estim Creat Clear Calc Estimated GFR POC Glucose 430 H* 236 H Random Glucose Calcium Hepatitis C Ab (EIA) Nonreactive 12/25/22 12/26/22 12/26/22 19:24 07:38 08:15 Anion Gap 14 Estim Creat Clear Calc 27.5 Estimated GFR 25 POC Glucose 388 H* 227 H Random Glucose 216 H Calcium 8.4 D Hepatitis C Ab (EIA) 12/26/22 11:03 Anion Gap Estim Creat Clear Calc Estimated GFR POC Glucose 195 H Random Glucose Calcium Hepatitis C Ab (EIA) Assessment and Plan (1) KELVIN (acute kidney injury): Status: Acute (2) Hyperglycemia: Status: Acute (3) Proteinuria: Status: Acute (4) CKD (chronic kidney disease) stage 1, GFR 90 ml/min or greater: Status: Acute (5) Acute heart failure with preserved ejection fraction (HFpEF): Status: Acute (6) Infiltrate of lung present on computed tomography: Status: Acute (7) Adenovirus enteritis: Status: Acute Plan 47-year-old male with a PMH significant for?HFpEF, HTN, insulin-dependent diabetes, COPD on 2L NC, GERD, alcohol use disorder, and YARELIS who presents to the ED with?SOB and chest tightness x2 days. Acute HFpEF exacerbation-Likely secondary to pneumonia/viral uri echo on 08/20: Conclusions: - 1. Normal LV systolic function with restrictive filling pattern 2. Normal cardiac valvular Doppler ? 3. Normal RV systolic pressure ? 4. Trivial pericardial effusion? BNP elevated at 822 weight was 134lbs on 10/20. ? if urinary output monitered -d/w staff to moniter urinary output closely. Daily weights, low-salt diet Hold home furosemide Admit to telemetry,blood cultures pending moniter bmp,bnp., Pneumonia :on admission: Leukocytosis, CTA showed bibasilar infiltrates and moderate-sized bilateral pleural effusions Leukocytosis improving, blood culture negative at 48 hour, sats are also fine. may need to hold Ceftriaxone, azithromycin if continue to have diarrahe hold lasix due to kelvin/diarrahe ( to avoid further fluids loss) htn: blood pressure flactuates insetting of blood presure boderline/kelvin:hold bp meds. Chest tightness: resolved. Likely secondary to CHF/pneumonia Serial troponins negative ekg -nsr ,no new chnages. dm with Hypoglycemia episode intially ,currently hyperglycemia : dm diet Monitor glucose, Hba1c levels Hold home diabetic meds fs with adjusted SSI,jardiance Alcohol use disorder Pt with history of alcohol withdrawal symptoms Pt denies current daily alcohol use, states last drink was over two weeks ago Abdominal pain: denies any abd pain today. Patient complains of chronic abdominal pain that has been ongoing for the past year CT of abdomen and pelvis with no acute findings Follow-up outpatient. KELVIN on ckd 3:with proteinuria hyperkalemia -added loklema . kelvin probable multifactorial( diarrahe ,recieved lasix , has proteinuria, flcatuating bp). Added renal duplex, serology and immunology studies Blood pressure is improving, will hold Lasix, lisinopril Nephrology follow-up Diarrhae: Gip panel-? possible uri adenovirus related. encourgaed for po intake and hydration has intermittent abd pain/dirrhae , no fevers added Id eval - may need to consider hold iv antibiotics if needed or if new fevers or worsening symptoms -may consider addin c diff . DVT Prophylaxis: Lovenox inpatient need:acute CHF exacerbation,kelvin , pneumonia , dirrhae , adenoviral uri -need renal/ electrolyte moniterin , bp flactuatin Time Spent With Patient Time: Total time managing care of this patient today ____ minutes. Quality Stroke Does the patient have a stroke diagnosis?: No VTE Prior VTE?: No VTE Risk Level:: Medical - moderate - high VTE Device Contraindication: Treatment Not Indicated VTE Drug Contraindication: N/A - Med Ordered
[2022-12-26] MEDS: Insulin Lispro 100 UNIT/ML 3 ML VIAL SUBCUT ×3 (12:10→21:32)
[2022-12-26] MEDS: Sucralfate 1 GM TABLET PO ×3 (12:11→21:31)
[2022-12-26] MEDS: Sodium Zirconium Cyclosilicate 5 GM POWD.PACK PO (12:11)
--- NOTE | 2022-12-26 14:12 | MHC.CM.PN ---
per rounds pt maybe dcd today plan to dc/with [facility] and avery has own transport home
[2022-12-26] MEDS: Nicotine 21 MG PATCH.TD24 TRANSDERMA (15:53)
[2022-12-26] MEDS: oxyCODONE HCl Immed Release 5 MG TABLET PO (15:55)
[2022-12-26 16:14] LABS: Glucose, Whole Blood 313 mg/dL (60-115)
--- NOTE | 2022-12-26 16:25 | W.PM.IDCN ---
History of Present Illness Data of Consult Service Date: 12/26/22 Requesting physician: Missael Ocasio Primary Care Provider: Zari Henry MD HPI Reason for consult: weakness,adenovirus He feels weak and bloated and has complaints of cough. I had seen him in July 2022 with pneumonia as well. He has enterovirus in stool and has diarrhea for a week. Review of Systems Review of Systems: Yes all other systems are reviewed and are negative PMFSH Past Medical History Medical History Acute on chronic anemia Acute on chronic diastolic (congestive) heart failure Acute respiratory failure KELVIN (acute kidney injury) Anxiety Asthma CHF exacerbation Chronic heart failure with preserved ejection fraction (HFpEF) Congestive heart failure Depression Diabetes HLD (hyperlipidemia) HTN (hypertension) Hypercholesteremia Hyperglycemia due to type 2 diabetes mellitus Hypoxia YARELIS (obstructive sleep apnea) YARELIS (obstructive sleep apnea) PAD (peripheral artery disease) Uncontrolled hypertension Family History Family History Father Alzheimer disease CAD (coronary artery disease) Family history: reviewed and not pertinent Surgical History Surgical History S/P angiogram of extremity Social History Social History Household Members: Family Housing: Apartment Do you presently have visiting nurse or other home services: No Alcohol intake: current Alcohol intake frequency: holidays/special occasions only Alcohol type: hard liquor Patient Tobacco Use Status: Current everyday Tobacco user Tobacco use type: Cigarette Cigarettes Per Day: 10 Years Smoked: >30 e-Cigarette/Vaping Use: Never Used Second Hand Smoke Exposure: No Substance Use Type: Marijuana Advance Directives Date on File: 06/21/21 service: No Current occupational status: disabled Meds Allergies Allergy/AdvReac Type Severity Reaction Status Date / Time dulaglutide [From Trulicity] Allergy Unknown Verified 10/06/22 14:42 metformin [METFORMIN] AdvReac Mild DIARRHEA, Verified 10/06/22 14:42 nausea and vomiting Active Medications: Current Medications Acetaminophen (Acetaminophen 325 Mg Tablet) 650 mg PO Q6H PRN PRN Reason: Pain, Mild (Pain Scale 1-3) Last Admin: 12/25/22 22:00 Dose: 650 mg Albuterol Sulfate (Albuterol Sulfate 90 Mcg 8 Gm Inhaler) 2 puff INHALE Q6H PRN PRN Reason: Shortness Of Breath Or Wheezing Albuterol/Ipratropium (Albuterol/Iprat 2.5/0.5mg 3 Ml Ampul.Neb) 3 ml INHALE Q8H PRN PRN Reason: Shortness Of Breath Or Wheezing Aspirin (Aspirin Enteric Coated 81 Mg Tablet.) 81 mg PO DAILY [facility] Last Admin: 12/26/22 09:55 Dose: 81 mg Atorvastatin Calcium (Atorvastatin Calcium 40 Mg Tablet) 40 mg PO DAILY [facility] Last Admin: 12/26/22 09:55 Dose: 40 mg Dextrose (Dextrose 50 % 25 Gm/50 Ml Syringe) 25 gm IVPUSH Q15M PRN; Protocol PRN Reason: per Hypoglycemia Standing Ord. Docusate Sodium (Docusate Sodium 100 Mg Capsule) 100 mg PO DAILY PRN PRN Reason: Constipation Empagliflozin (Empagliflozin 10 Mg Tablet) 10 mg PO DAILY [facility] Last Admin: 12/26/22 09:56 Dose: 10 mg Enoxaparin Sodium (Enoxaparin Sodium 40 Mg/0.4 Ml Syringe) 40 mg SUBCUT Q24H [facility] Last Admin: 12/26/22 09:58 Dose: 40 mg Escitalopram Oxalate (Escitalopram Oxalate 10 Mg Tablet) 10 mg PO DAILY [facility] Last Admin: 12/26/22 09:56 Dose: 10 mg Ferrous Sulfate (Ferrous Sulfate 324 Mg Tablet.) 324 mg PO DAILY [facility] Last Admin: 12/26/22 09:55 Dose: 324 mg Furosemide (Furosemide 40 Mg/4 Ml Vial) 40 mg IVPUSH BID@0900,1800 [facility]; Protocol Last Admin: 12/24/22 16:36 Dose: 40 mg Gabapentin (Gabapentin 300 Mg Capsule) 300 mg PO TID [facility] Last Admin: 12/25/22 21:19 Dose: 300 mg Glucose (Glucose Gel 15 Gm Gel..Gram.) 15 gm PO Q15M PRN; Protocol PRN Reason: per Hypoglycemia Standing Ord. Hydralazine HCl (Hydralazine Hcl 20 Mg/Ml Vial) 5 mg IVPUSH ONCE PRN; Protocol PRN Reason: SBP>180 Hydralazine HCl (Hydralazine Hcl 25 Mg Tablet) 75 mg PO TID [facility]; Protocol Last Admin: 12/25/22 16:32 Dose: Not Given Ceftriaxone Sodium 1 gm/ (Sodium Chloride) 50 mls @ 100 mls/hr IV Q24H [facility] Last Infusion: 12/25/22 21:20 Dose: Infused Azithromycin 500 mg/ Sodium (Chloride) 250 mls @ 125 mls/hr IV Q24H [facility] Last Infusion: 12/26/22 00:17 Dose: Infused Insulin Human Lispro (Insulin Lispro 100 Unit/Ml 3 Ml Vial) 0 unit SUBCUT QIDACHS [facility]; Protocol Last Admin: 12/26/22 12:10 Dose: 2 unit Lisinopril (Lisinopril 40 Mg Tablet) 40 mg PO DAILY [facility]; Protocol Last Admin: 12/24/22 08:11 Dose: 40 mg Loperamide HCl (Loperamide Hcl 2 Mg Capsule) 2 mg PO Q6H PRN PRN Reason: Diarrhea Last Admin: 12/25/22 08:56 Dose: 2 mg Magnesium Oxide (Magnesium Oxide 400 Mg Tablet) 400 mg PO BIDPC [facility] Last Admin: 12/26/22 09:56 Dose: 400 mg Metoprolol Succinate (Metoprolol Succinate Er 100 Mg Tab.Er.24h) 100 mg PO DAILY [facility]; Protocol Last Admin: 12/26/22 09:54 Dose: Not Given Nicotine (Nicotine 21 Mg Patch.Td24) 21 mg TRANSDERMA DAILY PRN PRN Reason: Nicotine Cravings Last Admin: 12/26/22 15:53 Dose: 21 mg Nicotine Polacrilex (Nicotine Polacrilex 2 Mg Gum) 2 mg BUCCAL Q1H PRN PRN Reason: Nicotine Cravings Nifedipine (Nifedipine Er 90 Mg Tab.Er.24) 90 mg PO DAILY [facility]; Protocol Last Admin: 12/25/22 08:56 Dose: 90 mg Omeprazole (Omeprazole 40 Mg Capsule.Dr) 40 mg PO DAILY@0630 [facility] Last Admin: 12/26/22 05:04 Dose: 40 mg Ondansetron HCl (Ondansetron Hcl 4 Mg/2 Ml Vial) 4 mg IVPUSH Q8H PRN PRN Reason: Nausea and Vomiting Last Admin: 12/25/22 20:42 Dose: 4 mg Pharmacy Consult (Consult Rx Perform Med Rec) 1 each MISCELLANE ONCE PRN PRN Reason: Consult order Salmeterol Xinafoate (Salmeterol Xinafoate 50 Mcg Blst.W.Dev) 1 puff INHALE RBID [facility] Last Admin: 12/26/22 07:53 Dose: 1 puff Sodium Chloride (0.9 % Sodium Chloride Flush 3 Ml Syringe) 3 ml IVFLUSH QSHIFT [facility] Last Admin: 12/26/22 15:56 Dose: 3 ml Sucralfate (Sucralfate 1 Gm Tablet) 1 gm PO QIDACHS [facility] Last Admin: 12/26/22 12:11 Dose: 1 gm Tiotropium [place] (Tiotropium [place] 18 Mcg Cap.W.Dev) 1 puff INHALE RDAILY [facility] Last Admin: 12/26/22 07:53 Dose: 1 puff Trazodone HCl (Trazodone Hcl 50 Mg Tablet) 50 mg PO BEDTIME [facility] Last Admin: 12/25/22 21:19 Dose: 50 mg Home Medications Medication Instructions Recorded Confirmed Last Taken Type albuterol sulfate 90 mcg/actuation 2 puff inhalation Q6H PRN 08/01/22 12/22/22 Unknown History aerosol inhaler Shortness Of Breath Or Wheezing escitalopram oxalate 10 mg tablet 10 mg PO DAILY 08/01/22 12/22/22 12/21/22 History insulin lispro 100 unit/mL See Rx Instructions .Route .COMPLEX 08/01/22 12/22/22 12/22/22 History subcutaneous solution trazodone 50 mg tablet 50 mg PO BEDTIME 08/01/22 12/22/22 12/21/22 History umeclidinium 62.5 mcg-vilanterol 1 inh inhalation DAILY 09/07/22 12/22/22 12/21/22 History 25 mcg/actuation powdr for inhalation (Anoro Ellipta) aspirin 81 mg tablet,delayed 81 mg PO DAILY 10/06/22 12/22/22 12/21/22 History release atorvastatin 40 mg tablet 40 mg PO DAILY 10/06/22 12/22/22 12/21/22 History gabapentin 300 mg capsule 300 mg PO TID 10/06/22 12/22/22 12/21/22 History lisinopril 40 mg tablet 40 mg PO DAILY 10/06/22 12/22/22 12/21/22 History metoprolol succinate 100 mg 100 mg PO DAILY 10/06/22 12/22/22 12/21/22 History tablet,extended release 24 hr omeprazole 40 mg capsule,delayed 40 mg PO DAILY@0630 10/06/22 12/22/22 12/21/22 History release ipratropium 0.5 mg-albuterol 3 mg 3 ml inhalation Q8H PRN Shortness 11/03/22 12/22/22 Unknown History (2.5 mg base)/3 mL nebulization Of Breath Or Wheezing soln nicotine (polacrilex) 2 mg gum 2 mg buccal Q1H PRN Nicotine 11/03/22 12/22/22 Unknown History Cravings nicotine 21 mg/24 hr daily 21 mg transdermal DAILY PRN 11/03/22 12/22/22 Unknown History transdermal patch Nicotine Cravings ferrous sulfate 324 mg (65 mg 1 tab PO DAILY 12/22/22 12/22/22 12/21/22 History iron) tablet,delayed release Physical Exam Vital Signs: Vital Signs: Last Vital Signs Temp 98.6 F 12/26/22 16:00 Pulse 99 12/26/22 16:00 Resp 18 12/26/22 16:00 BP 132/76 12/26/22 16:00 Pulse Ox 94 12/26/22 16:00 O2 Del Method 12/26/22 16:00 O2 Flow Rate 3 12/26/22 07:36 BMI result Body Mass Index 21.7 Const: General: cooperative HEENT: Head: Yes normal to inspection Face and sinus: Yes normal facial exam Mouth: Normal oral and palatal mucosa present Teeth and gingiva: dentition normal Eyes: General: appearance normal, both eyes and all related structures Pupils: Equal, round and reactive pupils present Resp: Effort & Inspection: normal respiratory effort Cardio: Rate: regular rate Rhythm: regular rhythm GI: Palpation (GI): Soft to palpation and nontender : General: Yes no CVA tenderness Back/Spine/Pelvis: Back: no CVA tenderness Skin: General skin exam: no rashes or lesions noted Neuro: General: moves all extremities Cranial nerves: Yes Equal, round and reactive pupils present Extrem: General: Yes normal to inspection Psych: Appearance: grossly normal Results Labs 12/24/22 06:23 12/26/22 08:15 Labs: BMP 12/26/22 08:15 Sodium 135 Potassium 5.3 H Chloride 106 Carbon Dioxide 20 L BUN 31 H Creatinine 2.74 H Calcium 8.4 D Microbiology Microbiology Results: Microbiology 12/22/22 23:34 Blood - Venous Blood Culture - Preliminary No growth after 48 hours. 12/22/22 23:34 Blood - Venous Blood Culture - Preliminary No growth after 48 hours. Assessment and Plan (1) Adenovirus enteritis: Status: Acute He has recurrent pneumonia Possible immunodeficiency Possible atypical organism/viral (2) KELVIN (acute kidney injury): Status: Acute (3) Infiltrate of lung present on computed tomography: Status: Acute Plan He needs HIV test (didnt get in July) Check CD4 count ,IgG,IgM,IgA) Can switch to po Doxycycline for a week Check Legionella antigen urine. Time Spent With Patient Time: Total time managing care of this patient today ____ minutes.
--- NOTE | 2022-12-26 17:30 | PC.NURSE ---
Strict I&O ordered - patient was educated repeatedly to use urinal when voiding, but did not use urinal,
--- NOTE | 2022-12-26 17:32 | PC.NURSE ---
Order for free water 300ml q4 for 24hrs - total water intake this shift was 1000ml
[2022-12-26 20:54] LABS: Glucose, Whole Blood 231 mg/dL (60-115)
--- NOTE | 2022-12-26 21:00 | PM.PNNEP ---
Subjective Subjective Date of Service: 12/26/22 Interval history: seen and examined, events noted Physical Exam Vital Signs: Vital Signs: Last Vital Signs Temp 97.8 F 12/26/22 20:00 Pulse 94 12/26/22 20:00 Resp 18 12/26/22 20:00 BP 157/79 H 12/26/22 20:00 Pulse Ox 98 12/26/22 20:00 O2 Del Method 12/26/22 20:00 O2 Flow Rate 3 12/26/22 07:36 BMI result Body Mass Index 21.7 Const: Other: Pt earing nasal oxygen, able to speak in full sentence, sitting up alert and comfortable General: cooperative, healthy appearing, no acute distress and well groomed Eyes: General: appearance normal, both eyes and all related structures Neck: Neck: Yes normal visual inspection, Yes full ROM, Yes no lymphadenopathy and Yes trachea midline Chest: Chest palpation & inspection: normal inspection of the chest and normal palpation of entire chest wall Resp: Auscultation: rales bilateral Cardio: Jugular venous distension: JVD elevated Palpation: normal PMI Rate: regular rate Rhythm: regular rhythm Heart sounds: S1 normal heart sound present and S2 normal heart sound present Bruits: Abdominal aortic bruit present (not heard) GI: Palpation (GI): Abdominal aortic bruit present (not heard) Extrem: Other: No significant periphral edema Objective Data Labs 12/24/22 06:23 12/26/22 08:15 Labs: Laboratory Results - last 24 hr 12/24/22 12/26/22 12/26/22 11:28 07:38 08:15 Sodium 135 Potassium 5.3 H Chloride 106 Carbon Dioxide 20 L Anion Gap 14 BUN 31 H Creatinine 2.74 H Estim Creat Clear Calc 27.5 Estimated GFR 25 POC Glucose 227 H Random Glucose 216 H Calcium 8.4 D Hepatitis C Ab (EIA) Nonreactive 12/26/22 12/26/22 12/26/22 11:03 16:03 20:48 Sodium Potassium Chloride Carbon Dioxide Anion Gap BUN Creatinine Estim Creat Clear Calc Estimated GFR POC Glucose 195 H 313 H 231 H Random Glucose Calcium Hepatitis C Ab (EIA) Microbiology Microbiology Results: Microbiology 12/22/22 23:34 Blood - Venous Blood Culture - Preliminary No growth after 48 hours. 12/22/22 23:34 Blood - Venous Blood Culture - Preliminary No growth after 48 hours. Procedures Date of Service Date of Service: 12/26/22 Assessment & Plan Assessment and plan (1) KELVIN (acute kidney injury): Status: Acute (2) Hypertensive urgency: Status: Acute Assessment and Plan: BP now well controlled (3) Acute heart failure with preserved ejection fraction (HFpEF): Status: Acute (4) CKD (chronic kidney disease) stage 1, GFR 90 ml/min or greater: Status: Acute Assessment and Plan: NOw kelvin on CKD due to malignant htn now controlled with impaired autoregulation (5) Proteinuria: Status: Acute Assessment and Plan: DKD is likely cause, serologies ordered (6) Hyperglycemia: Status: Acute Plan - Non-Oliguric KELVIN: c/w renal hypoerfusion in setting of svere DDysfunc and intol to RASi; need to r/obil VIANEY - Recurrent KELVIN events - HFpRF: severer DDysfuncon last Card Echo - H/O recuurent severe HTN episodes REC: agree with hold CASSIUS-I; doppler of renals; georges/renin and catechol tests as ordered; consider repeat card eval to reassess optimal card management of DDysnfiunc will follow alda with team Time Spent With Patient Time: Total time managing care of this patient today ____ minutes. Progress Note: Quality Stroke Does the patient have a stroke diagnosis?: No
[2022-12-26] MEDS: traZODone HCL 50 MG TABLET PO (21:31)
[2022-12-26] MEDS: Azithromycin 500 MG in 0.9 % Sodium Chloride 250 ML 125 MG IV (21:58)
[2022-12-26] MEDS: Morphine Sulfate 2 MG/ML CARTRIDGE IVPUSH (22:40)
[2022-12-27] MEDS: cefTRIAXone sodium 1 GM in 0.9 % Sodium Chloride 50 ML IV (00:06)
[2022-12-27 04:00] VITALS: BP 166/88; PULSE 110; RESP 20; TEMP 37.1; O2SAT 94
[2022-12-27] MEDS: Omeprazole 40 MG CAPSULE.DR PO (04:43)
[2022-12-27 06:09] LABS: Complement C3 161 mg/dL (82-185)
[2022-12-27 07:18] LABS: Glucose, Whole Blood 249 mg/dL (60-115)
[2022-12-27 07:38] LABS: Hematocrit 30.7 % (42.0-52.0); Hemoglobin 9.4 g/dl (14.0-18.0); Mean Corpuscular HGB Conc 30.6 g/dl (31.0-36.0); Mean Corpuscular Hemoglobin 24.1 pg (27.0-33.0); Mean Corpuscular Volume 78.7 fL (80.0-98.0); Mean Platelet Volume 10.3 fL (9.4-12.4); Platelet Count 302 X10*3/uL (160-400); Red Cell Distribution Width 18.7 % (11.0-16.0); White Blood Count 14.2 X10*3/uL (4.8-10.8)
[2022-12-27] MEDS: Salmeterol Xinafoate 50 MCG BLST.W.DEV 1 PUFF INHALE ×2 (07:40→20:38)
[2022-12-27 07:43] VITALS: PULSE 88; RESP 18; O2SAT 94
[2022-12-27 07:50] LABS: Estimated Average Glucose 166 mg/dL; Hemoglobin A1C 149.0009 umol/L; Hemoglobin A1c % 7.4 %
[2022-12-27 07:52] LABS: Anion Gap 12 (12-20); Blood Urea Nitrogen 24 mg/dL (9-16); Calcium 8.8 mg/dL (8.4-10.2); Carbon Dioxide 16 mmol/L (22-29); Chloride 116 mmol/L (96-108); Creatinine Clr Calc Pharmacy 42.6; Estimated Glomerular Filt Rate 41; Glucose Random 236 mg/dL (60-115); Potassium 5.4 mmol/L (3.3-5.1); Sodium 139 mmol/L (135-145)
[2022-12-27 07:56] LABS: B Type Natriuretic Peptide 56 pg/mL (<100)
[2022-12-27 08:00] VITALS: BP 198/84; PULSE 88; RESP 18; TEMP 36.6; O2SAT 95
[2022-12-27] MEDS: Insulin Lispro 100 UNIT/ML 3 ML VIAL SUBCUT ×3 (08:17→20:57)
[2022-12-27] MEDS: Metoprolol Succinate ER 100 MG TAB.ER.24H PO (08:18)
[2022-12-27] MEDS: Magnesium Oxide 400 MG TABLET PO ×2 (08:18→16:58)
[2022-12-27] MEDS: Enoxaparin Sodium 40 MG/0.4 ML SYRINGE SUBCUT (08:18)
[2022-12-27] MEDS: Aspirin Enteric Coated 81 MG TABLET.DR PO (08:18)
--- NOTE | 2022-12-27 08:18 | P.DS_ITS ---
DS: Providers Provider Date of Service: 12/27/22 Date of admission: 12/22/22 23:01 Primary care physician: Zari Henry MD Consults: 12/24/22 07:55 Consult to Nephrology Routine Consulting Provider: Kj Reveles Reason for consultation: uncontrolled htn -in chf/kelvin Has provider been notified: No 12/26/22 08:30 Consult to Infectious Diseases Routine Consulting Provider: Loida Ma Reason for consultation: pneumonia /abd pain/diarrahe/adenoviral infection Has provider been notified: No DS: Diagnosis Discharge Diagnosis (1) KELVIN (acute kidney injury): Status: Acute (2) Hypertensive urgency: Status: Acute (3) Acute heart failure with preserved ejection fraction (HFpEF): Status: Acute (4) CKD (chronic kidney disease) stage 1, GFR 90 ml/min or greater: Status: Acute (5) Proteinuria: Status: Acute (6) Hyperglycemia: Status: Acute DS: Summary Hospital Course Hospital Course: Chief Complaint: SOB, chest pain Pt is a 47-year-old male with a PMH significant for?HFpEF, HTN, insulin- dependent diabetes, COPD on 2L NC, GERD, alcohol use disorder, and YARELIS who presents to the ED with?SOB and chest tightness x2 days.? Patient states for the past few days he has noticed increased shortness of breath with exertion and at rest, endorses orthopnea.? Has had increased swelling in his abdomen, eyes, and face, which he says feels puffy, though no noticeable lower leg edema. Has also had chest pain/tightness with inspiration. Pt furthermore complains of chronic abdominal pain which wraps around his flanks towards his back that has been ongoing for over a year.? Patient denies fever, chills, nausea, vomiting.? No changes to bowel or bladder habits.? Patient has been admitted in the past for CHF and says that his current condition feel similar to then. In the ED patient was hypertensive at 211/86. Labs were significant for leukocytosis of 13.0 (near baseline), H&H of 11.2/35.9 (near baseline), glucose of 55, BNP elevated at 822, and initial troponin 9.5 with repeat 7.4. CXR showed possible mild edema. CTA showed bibasilar infiltrates and moderate-sized bilateral pleural effusions with diffuse mediastinal and bilateral hilar lymphadenopathy. CT of abdomen and pelvis with no acute findings. EKG demonstrated normal sinus rhythm without any evidence of ST elevations or depressions. Pt was treated with furosemide and amlodipine. Pt will be admitted to the hospital for treatment further evaluation of acute CHF exacerbation in the setting of pneumonia with IV diuretics and antibiotics. Hospital course: - Acute HFpEF exacerbation-Likely secondary to pneumonia/viral uri--Treated with Lasix and better and will resume oral lasix upon discharge Pneumonia :on admission: Leukocytosis, CTA showed bibasilar infiltrates and moderate-sized bilateral pleural effusions Leukocytosis improving, blood culture negative at 48 hour. Was seen by ID and recommended changing Ceftriaxone and Azithro to Doxy due to associated diarrhea for 10 days. ID further recommended HIV which is negative CD4 count ,IgG,IgM,IgA) will treate with Doxy for 10 days Check Legionella antigen urine. Chest tightness: resolved. Likely related to PNA, CHF Diabetes--resume home meds Alcohol use disorder--No withdrawal Abdominal pain: denies any abd pain today. Patient complains of chronic abdominal pain that has been ongoing for the past year CT of abdomen and pelvis with no acute findings Follow-up outpatient. KELVIN on ckd 3:with proteinuria, KELVIN resolving, Creatine peaked at 2.74 and 1.77, and 1.26 today (12/28) Nephrology was following and will continue to follow on outpatient basis hyperkalemia-- treated with Lokelma and discontinued Lisinopril, will discharged with Kayexlate 3 times a week and follow up with PCP and nephrology Diarrhae:--probably related to Abx, unable to collect c dif and gi panel at this time. Time Spent with Patient Time attestation: Total time managing care of this patient today ____ minutes. Discharge coordination time: Greater than 30 minutes Quality: Safe Use of Opioids Does Pt have an Active Cancer Diagnosis on the Problem List?: No Quality: Stroke Does the patient have a stroke diagnosis?: No Physical Exam Vital Signs: Vital Signs: Last Vital Signs Temp 98.7 F 12/27/22 04:00 Pulse 88 12/27/22 07:43 Resp 18 12/27/22 07:43 BP 166/88 H 12/27/22 04:00 Pulse Ox 94 12/27/22 04:00 O2 Del Method 12/27/22 04:00 O2 Flow Rate 3 12/26/22 07:36 BMI result Body Mass Index 21.7 DS: Data Data Completed and Pending Completed studies during hospitalization [Text1]: Procedures Assistance with Respiratory Ventilation, Less than 24 Consecutive Hours, Continuous Positive Airway Pressure (08/17/22) Detoxification Services for Substance Abuse Treatment (09/07/22) Excision of Esophagus, Via Natural or Artificial Opening Endoscopic, Diagnostic (09/07/22) Excision of Stomach, Pylorus, Via Natural or Artificial Opening Endoscopic, Diagnostic (09/07/22) Labs on day of discharge: Laboratory Results - last 24 hr 12/24/22 12/26/22 12/26/22 11:28 08:15 11:03 WBC RBC Hgb Hct MCV MCH MCHC RDW Plt Count MPV Absolute Nucleated RBC Nucleated RBC % (auto) Sodium 135 Potassium 5.3 H Chloride 106 Carbon Dioxide 20 L Anion Gap 14 BUN 31 H Creatinine 2.74 H Estim Creat Clear Calc 27.5 Estimated GFR 25 POC Glucose 195 H Random Glucose 216 H Estimat Average Glucose Hemoglobin A1c % Calcium 8.4 D B-Natriuretic Peptide Complement C3 161 Complement C4 31 12/26/22 12/26/22 12/27/22 16:03 20:48 07:05 WBC RBC Hgb Hct MCV MCH MCHC RDW Plt Count MPV Absolute Nucleated RBC Nucleated RBC % (auto) Sodium Potassium Chloride Carbon Dioxide Anion Gap BUN Creatinine Estim Creat Clear Calc Estimated GFR POC Glucose 313 H 231 H 249 H Random Glucose Estimat Average Glucose Hemoglobin A1c % Calcium B-Natriuretic Peptide Complement C3 Complement C4 12/27/22 12/27/22 12/27/22 07:19 07:19 07:19 WBC 14.2 H RBC 3.90 L Hgb 9.4 L Hct 30.7 L MCV 78.7 L MCH 24.1 L MCHC 30.6 L RDW 18.7 H Plt Count 302 MPV 10.3 Absolute Nucleated RBC 0.000 Nucleated RBC % (auto) 0.0 Sodium 139 Potassium 5.4 H Chloride 116 H Carbon Dioxide 16 L Anion Gap 12 BUN 24 H Creatinine 1.77 H Estim Creat Clear Calc 42.6 Estimated GFR 41 POC Glucose Random Glucose 236 H Estimat Average Glucose Hemoglobin A1c % Calcium 8.8 B-Natriuretic Peptide 56 Complement C3 Complement C4 12/27/22 07:19 WBC RBC Hgb Hct MCV MCH MCHC RDW Plt Count MPV Absolute Nucleated RBC Nucleated RBC % (auto) Sodium Potassium Chloride Carbon Dioxide Anion Gap BUN Creatinine Estim Creat Clear Calc Estimated GFR POC Glucose Random Glucose Estimat Average Glucose 166 Hemoglobin A1c % 7.4 Calcium B-Natriuretic Peptide Complement C3 Complement C4 Preliminary micro results at discharge 12/22/22 23:34 Blood Culture - Preliminary Blood - Venous No growth after 48 hours. 12/22/22 23:34 Blood Culture - Preliminary Blood - Venous No growth after 48 hours. Discharge Plan Discharge Anticipated Discharge Date/Time: 12/28/22 10:45 Patient Disposition: Home, Self-Care Discharge Diagnosis: Acute renal failure, heart failure, hyperkalemia, Referrals: Eriberto Dominguez MD [Physician] - 2 Weeks (Renal Artery Stenosis) Zari Henry MD [Primary Care Provider] - 1 Week Discharge Medications: New Lokelma 10 gram powder in packet 10 g PO 3XW Qty: 15 0RF Rx Instructions: Mon Day Monday doxycycline monohydrate 100 mg Capsule 100 mg PO Q12H Qty: 17 0RF sodium polystyrene sulfonate Powder 15 g PO MOWEFR Qty: 453.6 0RF Continued hydralazine 50 mg Tablet 50 mg PO TID Qty: 90 0RF Protocol: Hold for SBP< HOLD for SBP < : 90 Anoro Ellipta 62.5-25 mcg/actuation Blister With Device 1 inh INHALATION DAILY sucralfate 1 gram Tablet 1 g PO QIDACHS Qty: 120 0RF ipratropium-albuterol 0.5 mg-3 mg(2.5 mg base)/3 mL solution for nebulization 3 ml inhalation Q8H PRN (Reason: Shortness Of Breath Or Wheezing) nicotine (polacrilex) 2 mg gum 2 mg buccal Q1H PRN (Reason: Nicotine Cravings) Rx Instructions: do not exceed 24 pieces / day nicotine 21 mg/24 hr patch 24 hour 21 mg transdermal DAILY PRN (Reason: Nicotine Cravings) ferrous sulfate 324 mg (65 mg iron) tablet,delayed release (DR/EC) 1 tab PO DAILY trazodone 50 mg tablet 50 mg PO BEDTIME insulin lispro 100 unit/mL solution See Rx Instructions .ROUTE .COMPLEX Rx Instructions: insulin pump; use up to 100 units daily; OMNIPOD delivers 0.75 units per hour albuterol sulfate 90 mcg/actuation HFA aerosol inhaler 2 puff INHALATION Q6H PRN (Reason: Shortness Of Breath Or Wheezing) escitalopram oxalate 10 mg tablet 10 mg PO DAILY amlodipine 10 mg Tablet 10 mg PO DAILY 30 Days Qty: 30 0RF Protocol: Hold for SBP< HOLD for SBP < : 90 atorvastatin 40 mg tablet 40 mg PO DAILY gabapentin 300 mg capsule 300 mg PO TID Hold Instructions: Resume on 11/07/22. metoprolol succinate 100 mg tablet extended release 24 hr 100 mg PO DAILY omeprazole 40 mg capsule,delayed release(DR/EC) 40 mg PO DAILY@0630 furosemide 40 mg Tablet 40 mg PO DAILY Qty: 30 0RF Hold Instructions: Resume on 11/07/22. Protocol: Hold for SBP< HOLD for SBP < : 90 magnesium oxide 400 mg (241.3 mg magnesium) Tablet 400 mg PO BIDPC Qty: 60 0RF aspirin 81 mg tablet,delayed release (DR/EC) 81 mg PO DAILY Discontinued lisinopril 40 mg tablet 40 mg PO DAILY Discharge Orders: Discharge Order (Routine); Ordered 12/28/22 Ordered By: Roger Stephen Diet: Advance to usual diet Activity on Discharge: As tolerated Stand Alone Forms: Patient Portal Discharge page Care Plan Goals: Recovery from renal failure Health Concerns: Full recovery from renal failure, heart failure and high potassium Plan of Treatment: Continue taking your blood pressure medication as before, except that you should not take Lisinopril Take Doxycycline to treat pneumonia Take Lokelma to reduce potassium level Follow up with Dr. Dominguez to look into kidney aretery blockage Assessment: As above Discharge Date/Time: 12/28/22 17:57
[2022-12-27] MEDS: Empagliflozin 10 MG TABLET PO (08:19)
[2022-12-27] MEDS: Atorvastatin Calcium 40 MG TABLET PO (08:19)
[2022-12-27] MEDS: Escitalopram Oxalate 10 MG TABLET PO (08:19)
[2022-12-27] MEDS: Sucralfate 1 GM TABLET PO ×4 (08:19→20:58)
[2022-12-27] MEDS: Ferrous Sulfate 324 MG TABLET.DR PO (08:19)
[2022-12-27] MEDS: 0.9 % Sodium Chloride Flush 3 ML SYRINGE IVFLUSH ×3 (08:19→20:59)
[2022-12-27] MEDS: Doxycycline Monohydrate 100 MG CAPSULE PO ×2 (09:22→20:58)
--- NOTE | 2022-12-27 10:52 | HO.PM.IMPN ---
Subjective Subjective Date of Service: 12/27/22 Interval History: f/u on PNA, renal failure renal failure is improving Physical Exam Vital Signs: Vital Signs: Last Vital Signs Temp 97.9 F 12/27/22 08:00 Pulse 88 12/27/22 08:00 Resp 18 12/27/22 08:00 BP 198/84 H 12/27/22 08:00 Pulse Ox 95 12/27/22 08:00 O2 Del Method 12/27/22 08:00 O2 Flow Rate 3 12/26/22 07:36 BMI result Body Mass Index 21.7 Const: Other: General: AO X 3, no acute distress Resp: CTA bilateral CVS: S1,S2,RRR GI: +BS, non specific tenderness Skin: No rash Neuro: motor grossly intact Psych: appropriate affect Objective Data Active Medications Acetaminophen (Acetaminophen 325 Mg Tablet) 650 mg PO Q6H PRN PRN Reason: Pain, Mild (Pain Scale 1-3) Last Admin: 12/25/22 22:00 Dose: 650 mg Documented By: ANDREW Albuterol Sulfate (Albuterol Sulfate 90 Mcg 8 Gm Inhaler) 2 puff INHALE Q6H PRN PRN Reason: Shortness Of Breath Or Wheezing Albuterol/Ipratropium (Albuterol/Iprat 2.5/0.5mg 3 Ml Ampul.Neb) 3 ml INHALE Q8H PRN PRN Reason: Shortness Of Breath Or Wheezing Aspirin (Aspirin Enteric Coated 81 Mg Tablet.) 81 mg PO DAILY [facility] Last Admin: 12/27/22 08:18 Dose: 81 mg Documented By: SYDNIE Atorvastatin Calcium (Atorvastatin Calcium 40 Mg Tablet) 40 mg PO DAILY [facility] Last Admin: 12/27/22 08:19 Dose: 40 mg Documented By: SYDNIE Dextrose (Dextrose 50 % 25 Gm/50 Ml Syringe) 25 gm IVPUSH Q15M PRN; Protocol PRN Reason: per Hypoglycemia Standing Ord. Docusate Sodium (Docusate Sodium 100 Mg Capsule) 100 mg PO DAILY PRN PRN Reason: Constipation Doxycycline Monohydrate (Doxycycline Monohydrate 100 Mg Capsule) 100 mg PO Q12H [facility] Last Admin: 12/27/22 09:22 Dose: 100 mg Documented By: SYDNIE Empagliflozin (Empagliflozin 10 Mg Tablet) 10 mg PO DAILY [facility] Last Admin: 12/27/22 08:19 Dose: 10 mg Documented By: SYDNIE Enoxaparin Sodium (Enoxaparin Sodium 40 Mg/0.4 Ml Syringe) 40 mg SUBCUT Q24H [facility] Last Admin: 12/27/22 08:18 Dose: 40 mg Documented By: SYDNIE Escitalopram Oxalate (Escitalopram Oxalate 10 Mg Tablet) 10 mg PO DAILY [facility] Last Admin: 12/27/22 08:19 Dose: 10 mg Documented By: SYDNIE Ferrous Sulfate (Ferrous Sulfate 324 Mg Tablet.Dr) 324 mg PO DAILY [facility] Last Admin: 12/27/22 08:19 Dose: 324 mg Documented By: SYDNIE Furosemide (Furosemide 40 Mg/4 Ml Vial) 40 mg IVPUSH BID@0900,1800 [facility]; Protocol Last Admin: 12/24/22 16:36 Dose: 40 mg Documented By: CYNTHIA Gabapentin (Gabapentin 300 Mg Capsule) 300 mg PO TID [facility] Last Admin: 12/25/22 21:19 Dose: 300 mg Documented By: ANDREW Glucose (Glucose Gel 15 Gm Gel..Gram.) 15 gm PO Q15M PRN; Protocol PRN Reason: per Hypoglycemia Standing Ord. Hydralazine HCl (Hydralazine Hcl 20 Mg/Ml Vial) 5 mg IVPUSH ONCE PRN; Protocol PRN Reason: SBP>180 Hydralazine HCl (Hydralazine Hcl 25 Mg Tablet) 75 mg PO TID [facility]; Protocol Last Admin: 12/25/22 16:32 Dose: Not Given Documented By: LAURA Non-Admin Reason: Physician Held Med Insulin Human Lispro (Insulin Lispro 100 Unit/Ml 3 Ml Vial) 0 unit SUBCUT QIDACHS [facility]; Protocol Last Admin: 12/27/22 08:17 Dose: 4 unit Documented By: SYDNIE Lisinopril (Lisinopril 40 Mg Tablet) 40 mg PO DAILY [facility]; Protocol Last Admin: 12/24/22 08:11 Dose: 40 mg Documented By: CYNTHIA Loperamide HCl (Loperamide Hcl 2 Mg Capsule) 2 mg PO Q6H PRN PRN Reason: Diarrhea Last Admin: 12/25/22 08:56 Dose: 2 mg Documented By: LAURA Magnesium Oxide (Magnesium Oxide 400 Mg Tablet) 400 mg PO BIDPC [facility] Last Admin: 12/27/22 08:18 Dose: 400 mg Documented By: SYDNIE Metoprolol Succinate (Metoprolol Succinate Er 100 Mg Tab.Er.24h) 100 mg PO DAILY [facility]; Protocol Last Admin: 12/27/22 08:18 Dose: 100 mg Documented By: SYDNIE Nicotine (Nicotine 21 Mg Patch.Td24) 21 mg TRANSDERMA DAILY PRN PRN Reason: Nicotine Cravings Last Admin: 12/26/22 15:53 Dose: 21 mg Documented By: SYDNIE Nicotine Polacrilex (Nicotine Polacrilex 2 Mg Gum) 2 mg BUCCAL Q1H PRN PRN Reason: Nicotine Cravings Nifedipine (Nifedipine Er 90 Mg Tab.Er.24) 90 mg PO DAILY [facility]; Protocol Last Admin: 12/25/22 08:56 Dose: 90 mg Documented By: LAURA Omeprazole (Omeprazole 40 Mg Capsule.Dr) 40 mg PO DAILY@0630 [facility] Last Admin: 12/27/22 04:43 Dose: 40 mg Documented By: SAUL Ondansetron HCl (Ondansetron Hcl 4 Mg/2 Ml Vial) 4 mg IVPUSH Q8H PRN PRN Reason: Nausea and Vomiting Last Admin: 12/25/22 20:42 Dose: 4 mg Documented By: ANDREW Pharmacy Consult (Consult Rx Perform Med Rec) 1 each MISCELLANE ONCE PRN PRN Reason: Consult order Salmeterol Xinafoate (Salmeterol Xinafoate 50 Mcg Blst.W.Dev) 1 puff INHALE RBID [facility] Last Admin: 12/27/22 07:40 Dose: 1 puff Documented By: WILBERT Sodium Chloride (0.9 % Sodium Chloride Flush 3 Ml Syringe) 3 ml IVFLUSH QSHIFT [facility] Last Admin: 12/27/22 08:19 Dose: 3 ml Documented By: SYDNIE Sucralfate (Sucralfate 1 Gm Tablet) 1 gm PO QIDACHS [facility] Last Admin: 12/27/22 08:19 Dose: 1 gm Documented By: SYDNIE Tiotropium [place] (Tiotropium [place] 18 Mcg Cap.W.Dev) 1 puff INHALE RDAILY [facility] Last Admin: 12/27/22 07:40 Dose: 1 puff Documented By: WILBERT Trazodone HCl (Trazodone Hcl 50 Mg Tablet) 50 mg PO BEDTIME [facility] Last Admin: 12/26/22 21:31 Dose: 50 mg Documented By: SAUL Labs 12/27/22 07:19 12/27/22 07:19 Labs: Laboratory Results - last 24 hr 12/24/22 12/26/22 12/26/22 11:28 11:03 16:03 MCV MCH MCHC RDW Plt Count MPV Absolute Nucleated RBC Nucleated RBC % (auto) Anion Gap Estim Creat Clear Calc Estimated GFR POC Glucose 195 H 313 H Random Glucose Estimat Average Glucose Hemoglobin A1c % Calcium B-Natriuretic Peptide Complement C3 161 Complement C4 31 12/26/22 12/27/22 12/27/22 20:48 07:05 07:19 MCV 78.7 L MCH 24.1 L MCHC 30.6 L RDW 18.7 H Plt Count 302 MPV 10.3 Absolute Nucleated RBC 0.000 Nucleated RBC % (auto) 0.0 Anion Gap Estim Creat Clear Calc Estimated GFR POC Glucose 231 H 249 H Random Glucose Estimat Average Glucose Hemoglobin A1c % Calcium B-Natriuretic Peptide Complement C3 Complement C4 12/27/22 12/27/22 12/27/22 07:19 07:19 07:19 MCV MCH MCHC RDW Plt Count MPV Absolute Nucleated RBC Nucleated RBC % (auto) Anion Gap 12 Estim Creat Clear Calc 42.6 Estimated GFR 41 POC Glucose Random Glucose 236 H Estimat Average Glucose 166 Hemoglobin A1c % 7.4 Calcium 8.8 B-Natriuretic Peptide 56 Complement C3 Complement C4 Assessment and Plan (1) KELVIN (acute kidney injury): Status: Acute Plan Acute HFpEF exacerbation-Likely secondary to pneumonia/viral uri--Treated with Lasix and to resume home dose of lasix Pneumonia CTA showed bibasilar infiltrates and moderate-sized bilateral pleural effusions Leukocytosis improving, blood culture negative at 48 hour. Was seen by ID and recommended changing Ceftriaxone and Azithro to Doxy due to associated diarrhea. ID further recommended?e needs HIV test (didnt get in July) Check CD4 count ,IgG,IgM,IgA) Can switch to po Doxycycline for? a week Check Legionella antigen urine. Chest tightness: resolved. Likely related to PNA, CHF Diabetes--resume home meds Alcohol use disorder--No withdrawal Abdominal pain: denies any abd pain today. Patient complains of chronic abdominal pain that has been ongoing for the past year CT of abdomen and pelvis with no acute findings Follow-up outpatient. KELVIN on ckd 3:with proteinuria, KELVIN resolving, Creatine peaked at 2.74 and 1.77, Nephrology was following and will continue to follow on outpatient basis hyperkalemia--Give lokelma Diarrhae:--probably related to Abx, unable to collect c dif and gi panel at this time., has some vaue abdominal pain, CT has been negative HTN--BP high on multiple meds,metoprolol, nifedipine, hydralazine and Lisinopril ..Nephrology to make further adjustment need for inpaitnet renal failure , PNA Time Spent With Patient Time: Total time managing care of this patient today ____ minutes. Quality Stroke Does the patient have a stroke diagnosis?: No VTE Prior VTE?: No VTE Risk Level:: Medical - moderate - high VTE Device Contraindication: Treatment Not Indicated VTE Drug Contraindication: N/A - Med Ordered
[2022-12-27 10:53] LABS: Glucose, Whole Blood 337 mg/dL (60-115)
[2022-12-27 11:52] VITALS: BP 176/86; PULSE 102; RESP 18; TEMP 36.6; O2SAT 94
[2022-12-27 14:05] LABS: HIV AB/AG Nonreactive (Nonreactive); HIV Num 1 0.06 S/CO (0.00-0.99)
[2022-12-27] MEDS: Sodium Zirconium Cyclosilicate 10 GM POWD.PACK PO (14:26)
--- NOTE | 2022-12-27 15:15 | PM.PNNEP ---
Subjective Subjective Date of Service: 12/27/22 Interval history: Seen adn examined, events ntoed Physical Exam Vital Signs: Vital Signs: Last Vital Signs Temp 97.8 F 12/27/22 11:52 Pulse 102 H 12/27/22 11:52 Resp 18 12/27/22 11:52 BP 176/86 H 12/27/22 11:52 Pulse Ox 94 12/27/22 11:52 O2 Del Method 12/27/22 08:00 O2 Flow Rate 3 12/26/22 07:36 BMI result Body Mass Index 21.7 Const: Other: Pt earing nasal oxygen, able to speak in full sentence, sitting up alert and comfortable General: cooperative, healthy appearing, no acute distress and well groomed Eyes: General: appearance normal, both eyes and all related structures Neck: Neck: Yes normal visual inspection, Yes full ROM, Yes no lymphadenopathy and Yes trachea midline Chest: Chest palpation & inspection: normal inspection of the chest and normal palpation of entire chest wall Resp: Auscultation: rales bilateral Cardio: Jugular venous distension: JVD elevated Palpation: normal PMI Rate: regular rate Rhythm: regular rhythm Heart sounds: S1 normal heart sound present and S2 normal heart sound present Bruits: Abdominal aortic bruit present (not heard) GI: Palpation (GI): Abdominal aortic bruit present (not heard) Extrem: Other: No significant periphral edema Objective Data Labs 12/27/22 07:19 12/27/22 07:19 Labs: Laboratory Results - last 24 hr 12/24/22 12/26/22 12/26/22 11:28 16:03 16:54 WBC RBC Hgb Hct MCV MCH MCHC RDW Plt Count MPV Absolute Nucleated RBC Nucleated RBC % (auto) Sodium Potassium Chloride Carbon Dioxide Anion Gap BUN Creatinine Estim Creat Clear Calc Estimated GFR POC Glucose 313 H Random Glucose Estimat Average Glucose Hemoglobin A1c % Calcium B-Natriuretic Peptide Complement C3 161 Complement C4 31 HIV 1&2 Ab/P24 Ag 4thGn Nonreactive 12/26/22 12/27/22 12/27/22 20:48 07:05 07:19 WBC 14.2 H RBC 3.90 L Hgb 9.4 L Hct 30.7 L MCV 78.7 L MCH 24.1 L MCHC 30.6 L RDW 18.7 H Plt Count 302 MPV 10.3 Absolute Nucleated RBC 0.000 Nucleated RBC % (auto) 0.0 Sodium Potassium Chloride Carbon Dioxide Anion Gap BUN Creatinine Estim Creat Clear Calc Estimated GFR POC Glucose 231 H 249 H Random Glucose Estimat Average Glucose Hemoglobin A1c % Calcium B-Natriuretic Peptide Complement C3 Complement C4 HIV 1&2 Ab/P24 Ag 4thGn 12/27/22 12/27/22 12/27/22 07:19 07:19 07:19 WBC RBC Hgb Hct MCV MCH MCHC RDW Plt Count MPV Absolute Nucleated RBC Nucleated RBC % (auto) Sodium 139 Potassium 5.4 H Chloride 116 H Carbon Dioxide 16 L Anion Gap 12 BUN 24 H Creatinine 1.77 H Estim Creat Clear Calc 42.6 Estimated GFR 41 POC Glucose Random Glucose 236 H Estimat Average Glucose 166 Hemoglobin A1c % 7.4 Calcium 8.8 B-Natriuretic Peptide 56 Complement C3 Complement C4 HIV 1&2 Ab/P24 Ag 4thGn 12/27/22 10:38 WBC RBC Hgb Hct MCV MCH MCHC RDW Plt Count MPV Absolute Nucleated RBC Nucleated RBC % (auto) Sodium Potassium Chloride Carbon Dioxide Anion Gap BUN Creatinine Estim Creat Clear Calc Estimated GFR POC Glucose 337 H Random Glucose Estimat Average Glucose Hemoglobin A1c % Calcium B-Natriuretic Peptide Complement C3 Complement C4 HIV 1&2 Ab/P24 Ag 4thGn Microbiology Microbiology Results: Microbiology 12/22/22 23:34 Blood - Venous Blood Culture - Preliminary No growth after 48 hours. 12/22/22 23:34 Blood - Venous Blood Culture - Preliminary No growth after 48 hours. 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 now controlled with impaired autoregulation (5) Proteinuria: Status: Acute Assessment and Plan: DKD is likely cause, serologies ordered (6) Hyperglycemia: Status: Acute Plan - Non-Oliguric KELVIN: c/w renal hypoerfusion in setting of svere DDysfunc and intol to RASi; need to r/obil VIANEY SCr decr off RASi and holding BP meds - Recurrent KELVIN events - HFpRF: severer DDysfuncon last Card Echo - H/O recuurent severe HTN episodes REC: cont to hold CASSIUS-I but r/s other BP meds as noted; doppler of renals; georges/renin and catechol tests as ordered; consider repeat card eval to reassess optimal card management of DDysnfiunc will follow alda with team Time Spent With Patient Time: Total time managing care of this patient today ____ minutes. Progress Note: Quality Stroke Does the patient have a stroke diagnosis?: No
[2022-12-27 15:20] VITALS: BP 158/90; PULSE 78; RESP 15; TEMP 36.3; O2SAT 95
[2022-12-27 16:30] LABS: Glucose, Whole Blood 110 mg/dL (60-115)
[2022-12-27] MEDS: hydrALAZINE HCl 25 MG TABLET 75 MG PO ×2 (16:57→20:58)
[2022-12-27] MEDS: Nicotine 21 MG PATCH.TD24 TRANSDERMA (17:01)
[2022-12-27 20:00] VITALS: BP 142/80; PULSE 87; RESP 14; TEMP 36.4; O2SAT 94
[2022-12-27 20:14] LABS: Complement Total CH50 >60 U/mL (31-60)
[2022-12-27] MEDS: traZODone HCL 50 MG TABLET PO (20:58)
[2022-12-27 21:00] LABS: Glucose, Whole Blood 184 mg/dL (60-115)
[2022-12-28] VITALS (7 sets, daily range): BP systolic 119–177; BP diastolic 71–84; PULSE 75–88; RESP 16–20; TEMP 36.2–37.1; O2SAT 93–99
[2022-12-28 00:03] LABS: IgA 438 mg/dL (47-310); IgG 776 mg/dL (600-1640); IgM 149 mg/dL (50-300)
[2022-12-28] MEDS: Omeprazole 40 MG CAPSULE.DR PO (06:26)
[2022-12-28 07:23] LABS: Glucose, Whole Blood 195 mg/dL (60-115)
[2022-12-28] MEDS: Salmeterol Xinafoate 50 MCG BLST.W.DEV 1 PUFF INHALE (07:40)
[2022-12-28] MEDS: Insulin Lispro 100 UNIT/ML 3 ML VIAL SUBCUT ×2 (08:05→12:39)
[2022-12-28] MEDS: hydrALAZINE HCl 25 MG TABLET 75 MG PO (08:31)
[2022-12-28] MEDS: Doxycycline Monohydrate 100 MG CAPSULE PO (08:31)
[2022-12-28] MEDS: Metoprolol Succinate ER 100 MG TAB.ER.24H PO (08:31)
[2022-12-28] MEDS: Ferrous Sulfate 324 MG TABLET.DR PO (08:31)
[2022-12-28] MEDS: Sucralfate 1 GM TABLET PO ×2 (08:31→12:37)
[2022-12-28] MEDS: Magnesium Oxide 400 MG TABLET PO (08:31)
[2022-12-28] MEDS: Aspirin Enteric Coated 81 MG TABLET.DR PO (08:31)
[2022-12-28] MEDS: Escitalopram Oxalate 10 MG TABLET PO (08:32)
[2022-12-28] MEDS: 0.9 % Sodium Chloride Flush 3 ML SYRINGE IVFLUSH (08:32)
[2022-12-28] MEDS: Atorvastatin Calcium 40 MG TABLET PO (08:32)
[2022-12-28] MEDS: NIFEdipine ER 90 MG TAB.ER.24 PO (08:32)
[2022-12-28] MEDS: Empagliflozin 10 MG TABLET PO (08:32)
[2022-12-28 09:19] LABS: Blood Urea Nitrogen 14 mg/dL (9-16); Calcium 9.5 mg/dL (8.4-10.2); Creatinine Clr Calc Pharmacy 59.9; Estimated Glomerular Filt Rate > 60; Glucose Random 187 mg/dL (60-115)
[2022-12-28 09:27] LABS: Anion Gap 15 (12-20); Carbon Dioxide 19 mmol/L (22-29); Chloride 111 mmol/L (96-108); Potassium 5.4 mmol/L (3.3-5.1); Sodium 140 mmol/L (135-145)
[2022-12-28] MEDS: Enoxaparin Sodium 40 MG/0.4 ML SYRINGE SUBCUT (10:36)
--- NOTE | 2022-12-28 10:42 | MHC.CM.PN ---
pt dcd home with w/family girlfriend to transport
[2022-12-28 11:09] LABS: COVID-19 Test Negative (Negative); IDNOW Serial# 16C4AD1C
[2022-12-28 11:19] LABS: Glucose, Whole Blood 248 mg/dL (60-115)
[2022-12-28 11:28] LABS: Creatinine Urine 73.46 mg/dL
[2022-12-28 11:49] LABS: Protein/Creatinine Ratio, Ur 3.16 (<0.2); Total Protein Urine Random 232 mg/dL (<12)
[2022-12-28] MEDS: Sodium Zirconium Cyclosilicate 10 GM POWD.PACK PO (12:37)
[2022-12-28 15:49] LABS: Glucose, Whole Blood 264 mg/dL (60-115)
--- NOTE | 2022-12-28 17:48 | PM.PNNEP ---
Subjective Subjective Date of Service: 12/28/22 Interval history: Seen adn examined, events ntoed Physical Exam Vital Signs: Vital Signs: Last Vital Signs Temp 97.8 F 12/28/22 15:25 Pulse 83 12/28/22 15:25 Resp 17 12/28/22 15:25 BP 119/71 12/28/22 15:25 Pulse Ox 95 12/28/22 15:25 O2 Del Method 12/28/22 15:25 O2 Flow Rate 3 12/26/22 07:36 BMI result Body Mass Index 21.7 Const: Other: Pt earing nasal oxygen, able to speak in full sentence, sitting up alert and comfortable General: cooperative, healthy appearing, no acute distress and well groomed Eyes: General: appearance normal, both eyes and all related structures Neck: Neck: Yes normal visual inspection, Yes full ROM, Yes no lymphadenopathy and Yes trachea midline Chest: Chest palpation & inspection: normal inspection of the chest and normal palpation of entire chest wall Resp: Auscultation: rales bilateral Cardio: Jugular venous distension: JVD elevated Palpation: normal PMI Rate: regular rate Rhythm: regular rhythm Heart sounds: S1 normal heart sound present and S2 normal heart sound present Bruits: Abdominal aortic bruit present (not heard) GI: Palpation (GI): Abdominal aortic bruit present (not heard) Extrem: Other: No significant periphral edema Objective Data Labs 12/27/22 07:19 12/28/22 08:44 Labs: Laboratory Results - last 24 hr 12/24/22 12/24/22 12/27/22 11:28 11:28 20:49 Sodium Potassium Chloride Carbon Dioxide Anion Gap BUN Creatinine Estim Creat Clear Calc Estimated GFR POC Glucose 184 H Random Glucose Calcium U Random Total Protein Urine Creatinine Protein/Creatinin Ratio IgG Total 776 IgA Total 438 H IgM 149 YVETTE Interpretation SEE NOTE Tot Complement (CH50) >60 H COVID-19 (XANDER) COVID-19 Clin Com 12/28/22 12/28/22 12/28/22 07:20 08:44 10:40 Sodium 140 Potassium 5.4 H Chloride 111 H Carbon Dioxide 19 L Anion Gap 15 BUN 14 Creatinine 1.26 Estim Creat Clear Calc 59.9 Estimated GFR > 60 POC Glucose 195 H Random Glucose 187 H Calcium 9.5 D U Random Total Protein Urine Creatinine Protein/Creatinin Ratio IgG Total IgA Total IgM YVETTE Interpretation Tot Complement (CH50) COVID-19 (XANDER) Negative COVID-19 Clin Com See Note 12/28/22 12/28/22 12/28/22 10:40 11:16 15:27 Sodium Potassium Chloride Carbon Dioxide Anion Gap BUN Creatinine Estim Creat Clear Calc Estimated GFR POC Glucose 248 H 264 H Random Glucose Calcium U Random Total Protein 232 H Urine Creatinine 73.46 Protein/Creatinin Ratio 3.16 H IgG Total IgA Total IgM YVETTE Interpretation Tot Complement (CH50) COVID-19 (XANDER) COVID-19 Clin Com Microbiology Microbiology Results: Microbiology 12/22/22 23:34 Blood - Venous Blood Culture - Final No growth after 5 days. 12/22/22 23:34 Blood - Venous Blood Culture - Final No growth after 5 days. Procedures Date of Service Date of Service: 12/28/22 Assessment & Plan Assessment and plan (1) KELVIN (acute kidney injury): Status: Acute (2) Hypertensive urgency: Status: Acute Assessment and Plan: BP now well controlled (3) Acute heart failure with preserved ejection fraction (HFpEF): Status: Acute (4) CKD (chronic kidney disease) stage 1, GFR 90 ml/min or greater: Status: Acute (5) Proteinuria: Status: Acute (6) Hyperglycemia: Status: Acute Plan - Non-Oliguric KELVIN: c/w renal hypoerfusion in setting of svere DDysfunc and intol to RASi; doppler of Renals c/w King VIANEY R > L now it appears incr SCr while on RASi c/w VIANEY - Recurrent KELVIN events - HFpRF: severer DDysfuncon last Card Echo - H/O recuurent severe HTN episodes - HyperK REC: Lokelma 10 gm 3x/wk; cont to hold CASSIUS-I; georges/renin and catechol tests as ordered; consider repeat card eval to reassess optimal card management of DDysnfiunc will follow alda with team Time Spent With Patient Time: Total time managing care of this patient today ____ minutes. Progress Note: Quality Stroke Does the patient have a stroke diagnosis?: No
[2023-01-03 20:18] LABS: Phospholipase A2 IgG ELISA <4 RU/mL; Phospholipase A2 IgG IFA NEGATIVE (NEGATIVE)
[2023-01-04 20:23] LABS: C1Q Complement Component 5.2 mg/dL (5.0-8.6)
[2023-01-13 17:29] LABS: Catecholamine Frac, Total 331 pg/mL
== END 2022-12-28 17:57 | disposition home or self-care (01) | DRG 194 ==
LOC: HO.ED 19:57 → HO.EDOVER 23:13 → HO.IMC 12-23 19:41
PROVIDERS: Internal Medicine; Internal Medicine Nephrology; Nurse Practitioner Family; Physician Assistant; Admitting Provider Student in an Organized Health Care Education/Training Program; Emergency Provider Emergency Medicine Emergency Medical Services; PCP Internal Medicine; Visit Provider Internal Medicine
DX: I13.0 Hypertensive heart and chronic kidney disease with heart failure and stage 1 through stage 4 chronic kidney disease, or unspecified chronic kidney disease (principal); E11.649 Type 2 diabetes mellitus with hypoglycemia without coma; N17.9 Acute kidney failure, unspecified; J12.9 Viral pneumonia, unspecified; D63.1 Anemia in chronic kidney disease; A08.2 Adenoviral enteritis; E11.22 Type 2 diabetes mellitus with diabetic chronic kidney disease; I50.33 Acute on chronic diastolic (congestive) heart failure; J44.0 Chronic obstructive pulmonary disease with (acute) lower respiratory infection; N18.30 Chronic kidney disease, stage 3 unspecified; I16.0 Hypertensive urgency; F41.9 Anxiety disorder, unspecified; E78.00 Pure hypercholesterolemia, unspecified; E11.65 Type 2 diabetes mellitus with hyperglycemia; F10.10 Alcohol abuse, uncomplicated; F32.A Depression, unspecified; G47.33 Obstructive sleep apnea (adult) (pediatric); F17.210 Nicotine dependence, cigarettes, uncomplicated; Z20.822 Contact with and (suspected) exposure to COVID-19; Z71.6 Tobacco abuse counseling; Z88.8 Allergy status to other drugs, medicaments and biological substances; Z79.4 Long term (current) use of insulin; Z79.899 Other long term (current) drug therapy
CPT/HCPCS: 36415; 71045; 71275; 74177; 76775; 80048; 80053; 81001; 82040; 82384; 82784; 82947; 83036; 83520; 83605; 83735; 83880; 84156; 84484; 85025; 85027; 85379; 85610; 86160; 86162; 86255; 86334; 86803; 87040; 87389; 87502; 87507; 87635; 89055; 93005; 93975; 94640; 96374; 96376; 99285; J0456; J0696; J1650; J1940; J2270; J2405; Q9967

== ENCOUNTER 2023-02-27 21:46 | Emergency (ER) | payer OTHER, SELFPAY ==
--- NOTE | ~2023-02-27 | XR_ITS ---
EXAMINATION: XR CHEST CLINICAL INFORMATION: Shortness of breath COMPARISON: Chest x-ray 12/22/2022 TECHNIQUE: Frontal portable view of the chest was obtained. 2224 hours FINDINGS: No significant abnormality is noted involving the heart, lungs, mediastinum, bony thorax or soft tissues. XR/XR chest 1V IMPRESSION: Unremarkable examination.
--- NOTE | 2023-02-27 21:50 | ED.CHESTPAIN ---
HPI - Chest Pain General Chief Complaint: Chest Pain Stated Complaint: chest pressure Time Seen by Provider: 02/27/23 21:48 Source: patient and EMS Limitations: no limitations History of Present Illness HPI narrative: Patient history of anxiety hypertension, hypercholesteremia, diabetes asthma ,CHF under increased stress at home patient's mother 1 week ago since then been feeling very anxious shortness of breath and a chest tightness got worse in last 3 days did not get up from the bed because of stress patient has similar episodes in the past with anxiety patient received 324 mg of aspirin and nitroglycerin by EMS Related Data Home Medications Medication Instructions Recorded Confirmed albuterol sulfate 90 mcg/actuation 2 puff inhalation Q6H PRN 08/01/22 12/22/22 aerosol inhaler Shortness Of Breath Or Wheezing escitalopram oxalate 10 mg tablet 10 mg PO DAILY 08/01/22 12/22/22 insulin lispro 100 unit/mL See Rx Instructions .Route .COMPLEX 08/01/22 12/22/22 subcutaneous solution trazodone 50 mg tablet 50 mg PO BEDTIME 08/01/22 12/22/22 umeclidinium 62.5 mcg-vilanterol 1 inh inhalation DAILY 09/07/22 12/22/22 25 mcg/actuation powdr for inhalation (Anoro Ellipta) aspirin 81 mg tablet,delayed 81 mg PO DAILY 10/06/22 12/22/22 release atorvastatin 40 mg tablet 40 mg PO DAILY 10/06/22 12/22/22 gabapentin 300 mg capsule 300 mg PO TID 10/06/22 12/22/22 metoprolol succinate 100 mg 100 mg PO DAILY 10/06/22 12/22/22 tablet,extended release 24 hr omeprazole 40 mg capsule,delayed 40 mg PO DAILY@0630 10/06/22 12/22/22 release ipratropium 0.5 mg-albuterol 3 mg 3 ml inhalation Q8H PRN Shortness 11/03/22 12/22/22 (2.5 mg base)/3 mL nebulization Of Breath Or Wheezing soln nicotine (polacrilex) 2 mg gum 2 mg buccal Q1H PRN Nicotine 11/03/22 12/22/22 Cravings nicotine 21 mg/24 hr daily 21 mg transdermal DAILY PRN 11/03/22 12/22/22 transdermal patch Nicotine Cravings ferrous sulfate 324 mg (65 mg 1 tab PO DAILY 12/22/22 12/22/22 iron) tablet,delayed release Previous Rx's Medication Instructions Recorded amlodipine 10 mg tablet 10 mg PO DAILY 30 days #30 tabs 08/07/22 hydralazine 50 mg tablet 50 mg PO TID #90 tabs 08/13/22 furosemide 40 mg tablet 40 mg PO DAILY #30 tabs 08/20/22 magnesium oxide 400 mg (241.3 mg 400 mg PO BIDPC #60 tabs 08/20/22 magnesium) tablet sucralfate 1 gram tablet 1 g PO QIDACHS #120 tabs 09/10/22 doxycycline monohydrate 100 mg 100 mg PO Q12H #17 caps 12/28/22 capsule sodium zirconium cyclosilicate 10 10 g PO 3XW #15 ea 12/28/22 gram oral powder packet (Lokelma) sodium polystyrene sulfonate 15 g PO MOWEFR #453.6 grams 12/30/22 lorazepam 1 mg tablet (Ativan) 1 mg PO BEDTIME PRN sleep #14 tabs 02/27/23 Allergies Allergy/AdvReac Type Severity Reaction Status Date / Time dulaglutide [From [facility]] Allergy Unknown Verified 10/06/22 14:42 metformin [METFORMIN] AdvReac Mild DIARRHEA, Verified 10/06/22 14:42 nausea and vomiting Review of Systems Review of Systems: Yes all other systems are reviewed and are negative [facility] [place] Past Medical History Medical History Acute on chronic anemia Acute on chronic diastolic (congestive) heart failure Acute respiratory failure KELVIN (acute kidney injury) Anxiety Asthma CHF exacerbation Chronic heart failure with preserved ejection fraction (HFpEF) CKD (chronic kidney disease) stage 1, GFR 90 ml/min or greater Congestive heart failure Depression Diabetes HLD (hyperlipidemia) HTN (hypertension) Hypercholesteremia Hyperglycemia due to type 2 diabetes mellitus Hypoxia YARELIS (obstructive sleep apnea) YARELIS (obstructive sleep apnea) PAD (peripheral artery disease) Uncontrolled hypertension Surgical History S/P angiogram of extremity Family History Family History Father Alzheimer disease CAD (coronary artery disease) Social History Social History Household Members: Family Housing: Apartment Do you presently have visiting nurse or other home services: No Alcohol intake: never Patient Tobacco Use Status: Current everyday Tobacco user Tobacco use type: Cigarette Cigarettes Per Day: 10 Years Smoked: >30 Smoked in Last 30 Days: No e-Cigarette/Vaping Use: Never Used Second Hand Smoke Exposure: No Use of substances other than those prescribed or required for medical reasons: No Substance Use Type: Marijuana Advance Directives: Yes Advance Directives on File: Yes Advance Directives Date on File: 06/21/21 service: No Current occupational status: disabled Physical Exam Vital Signs: Vital Signs: Last Vital Signs Temp 98.2 F 02/27/23 22:22 Pulse 70 02/27/23 22:22 Resp 16 02/27/23 22:22 BP 185/80 H 02/27/23 22:22 Pulse Ox 97 02/27/23 22:22 O2 Del Method Room Air 02/27/23 22:22 BMI result Body Mass Index 24.1 Appearance: Alert. Oriented X3. No acute distress. Anxious Eyes: PERRLA, No Nystagmus ENT: Pharynx normal. Oral Mucosa moist Neck: Normal inspection. Neck supple. CVS: Normal heart rate and rhythm. Pulses normal. Respiratory: No respiratory distress. Equal air entry bilateral, no wheezing/rales/rhonchi Abdomen: Soft and nontender. Bowel sounds are present, no mass palpable, no CVA tenderness Skin: Skin warm and dry. Normal skin color. Normal skin turgor. Extremities: No lower extremity edema. No calf tenderness Neuro: Oriented X 3. No motor deficit. No sensory deficit.No cerebellar signs , cranial nerves II-XII intact Medications Administered Discontinued Medications Generic Name Dose Route Start Last Admin Trade Name Freq PRN Reason Stop Dose Admin Lorazepam 1 mg 02/27/23 21:59 02/27/23 22:12 Lorazepam 2 Mg/Ml Vial IVPUSH 02/27/23 22:00 1 mg ONCE ONE Administration Medical Decision Making Medical Decision Making [facility] Narrative: Patient with increased anxiety and stress with shortness of breath and chest discomfort with normal EKG unlikely ACS will check basic labs and high sensitive troponin Lab Data [facility] Lab Attestation statement: I reviewed the patient's lab results. 02/27/23 22:14 02/27/23 22:20 Labs: Lab Results 02/27/23 02/27/23 02/27/23 Range/Units 22:14 22:14 22:14 WBC 9.7 (4.8-10.8) X10*3/uL RBC 4.92 D (4.60-5.80) X10*6/uL Hgb 12.4 L D (14.0-18.0) g/dl Hct 39.3 L D (42.0-52.0) % MCV 79.9 L (80.0-98.0) fL MCH 25.2 L (27.0-33.0) pg MCHC 31.6 (31.0-36.0) g/dl RDW 17.5 H (11.0-16.0) % Plt Count 256 (160-400) X10*3/uL MPV 10.1 (9.4-12.4) fL Immature Gran % (Auto) 0.3 (0.0-0.4) % Neut % (Auto) 80.3 H (45-73) % Lymph % (Auto) 11.5 L (20-40) % [place] % (Auto) 7.3 (2-11) % Eos % (Auto) 0.4 (0-4) % Baso % (Auto) 0.2 (0-2) % Lymph # (Auto) 1.1 L (1.2-4.9) X10*3/uL [place] # (Auto) 0.7 (0.1-1.2) X10*3/uL Eos # (Auto) 0.0 (0.0-0.4) X10*3/uL Baso # (Auto) 0.0 (0.0-0.2) X10*3/uL Abs Immat Gran (auto) 0.03 (0.00-0.03) X10*3/uL Absolute Neuts (auto) 7.8 (2.0-8.3) x10*3/uL Absolute Nucleated RBC 0.000 (0.0-0.012) X10*3/uL Nucleated RBC % (auto) 0.0 (0.0-0.2) /100WBC PT 10.5 (10.0-13.1) SEC INR 0.9 (0.9-1.1) Sodium (135-145) mmol/L Potassium (3.3-5.1) mmol/L Chloride (96-108) mmol/L Carbon Dioxide (22-29) mmol/L Anion Gap (12-20) BUN (9-16) mg/dL Creatinine (0.5-1.4) mg/dL Estim Creat Clear Calc Estimated GFR Random Glucose (60-115) mg/dL Calcium (8.4-10.2) mg/dL Total Bilirubin (0.0-1.0) mg/dL AST (5-37) U/L ALT (0-40) U/L Alkaline Phosphatase (39-117) U/L Troponin I High Sens 4.3 (<3.5-35.0) ng/L B-Natriuretic Peptide (<100) pg/mL Total Protein (6.5-8.0) g/dL Albumin (3.5-5.0) g/dL 02/27/23 02/27/23 Range/Units 22:20 22:20 WBC (4.8-10.8) X10*3/uL RBC (4.60-5.80) X10*6/uL Hgb (14.0-18.0) g/dl Hct (42.0-52.0) % MCV (80.0-98.0) fL MCH (27.0-33.0) pg MCHC (31.0-36.0) g/dl RDW (11.0-16.0) % Plt Count (160-400) X10*3/uL MPV (9.4-12.4) fL Immature Gran % (Auto) (0.0-0.4) % Neut % (Auto) (45-73) % Lymph % (Auto) (20-40) % [place] % (Auto) (2-11) % Eos % (Auto) (0-4) % Baso % (Auto) (0-2) % Lymph # (Auto) (1.2-4.9) X10*3/uL [place] # (Auto) (0.1-1.2) X10*3/uL Eos # (Auto) (0.0-0.4) X10*3/uL Baso # (Auto) (0.0-0.2) X10*3/uL Abs Immat Gran (auto) (0.00-0.03) X10*3/uL Absolute Neuts (auto) (2.0-8.3) x10*3/uL Absolute Nucleated RBC (0.0-0.012) X10*3/uL Nucleated RBC % (auto) (0.0-0.2) /100WBC PT (10.0-13.1) SEC INR (0.9-1.1) Sodium 139 (135-145) mmol/L Potassium 4.1 D (3.3-5.1) mmol/L Chloride 106 (96-108) mmol/L Carbon Dioxide 22 (22-29) mmol/L Anion Gap 15 (12-20) BUN 14 (9-16) mg/dL Creatinine 1.10 (0.5-1.4) mg/dL Estim Creat Clear Calc 71.4 Estimated GFR > 60 Random Glucose 286 H (60-115) mg/dL Calcium 8.5 D (8.4-10.2) mg/dL Total Bilirubin 0.4 (0.0-1.0) mg/dL AST 26 (5-37) U/L ALT 24 (0-40) U/L Alkaline Phosphatase 81 (39-117) U/L Troponin I High Sens (<3.5-35.0) ng/L B-Natriuretic Peptide 403 H (<100) pg/mL Total Protein 6.0 L (6.5-8.0) g/dL Albumin 3.4 L (3.5-5.0) g/dL Independent Interpretation I performed an independent interpretation of an: EKG Interpretation: No sinus rhythm heart rate 60 beats per minute normal intervals normal axis no acute ST T wave change impression normal EKG Discharge Plan Discharge Clinical Impression: Anxiety, Chest pain, Grief reaction Patient Disposition: Home, Self-Care Instructions: Chest Pain (ED), Grief and Loss (ED), Anxiety (ED) Additional Instructions: Rest at home Ativan every night as needed for sleep and anxiety Follow-up with your PCP Prescriptions: New lorazepam [Ativan] 1 mg tablet 1 mg PO BEDTIME PRN (Reason: sleep) Qty: 14 0RF No Action hydralazine 50 mg Tablet 50 mg PO TID Qty: 90 0RF Protocol: Hold for SBP< HOLD for SBP < : 90 Anoro Ellipta 62.5-25 mcg/actuation Blister With Device 1 inh INHALATION DAILY sucralfate 1 gram Tablet 1 g PO QIDACHS Qty: 120 0RF ipratropium-albuterol 0.5 mg-3 mg(2.5 mg base)/3 mL solution for nebulization 3 ml inhalation Q8H PRN (Reason: Shortness Of Breath Or Wheezing) nicotine (polacrilex) 2 mg gum 2 mg buccal Q1H PRN (Reason: Nicotine Cravings) Rx Instructions: do not exceed 24 pieces / day nicotine 21 mg/24 hr patch 24 hour 21 mg transdermal DAILY PRN (Reason: Nicotine Cravings) ferrous sulfate 324 mg (65 mg iron) tablet,delayed release (DR/EC) 1 tab PO DAILY Lokelma 10 gram powder in packet 10 g PO 3XW Qty: 15 0RF Rx Instructions: Mon Day Monday doxycycline monohydrate 100 mg Capsule 100 mg PO Q12H Qty: 17 0RF sodium polystyrene sulfonate Powder 15 g PO MOWEFR Qty: 453.6 0RF trazodone 50 mg tablet 50 mg PO BEDTIME insulin lispro 100 unit/mL solution See Rx Instructions .ROUTE .COMPLEX Rx Instructions: insulin pump; use up to 100 units daily; OMNIPOD delivers 0.75 units per hour albuterol sulfate 90 mcg/actuation HFA aerosol inhaler 2 puff INHALATION Q6H PRN (Reason: Shortness Of Breath Or Wheezing) escitalopram oxalate 10 mg tablet 10 mg PO DAILY amlodipine 10 mg Tablet 10 mg PO DAILY 30 Days Qty: 30 0RF Protocol: Hold for SBP< HOLD for SBP < : 90 atorvastatin 40 mg tablet 40 mg PO DAILY gabapentin 300 mg capsule 300 mg PO TID Hold Instructions: Resume on 11/07/22. metoprolol succinate 100 mg tablet extended release 24 hr 100 mg PO DAILY omeprazole 40 mg capsule,delayed release(DR/EC) 40 mg PO DAILY@0630 furosemide 40 mg Tablet 40 mg PO DAILY Qty: 30 0RF Hold Instructions: Resume on 11/07/22. Protocol: Hold for SBP< HOLD for SBP < : 90 magnesium oxide 400 mg (241.3 mg magnesium) Tablet 400 mg PO BIDPC Qty: 60 0RF aspirin 81 mg tablet,delayed release (DR/EC) 81 mg PO DAILY Interventions: ED Discharge Assessment Last Done: 02/27/23 23:55 Discharge Date/Time: 02/27/23 23:56
--- NOTE | 2023-02-27 21:54 | ECG_ITS ---
Test Reason : chest pressure Blood Pressure : / mmHG Vent. Rate : 060 BPM Atrial Rate : 060 BPM P-R Int : 118 ms QRS Dur : 080 ms QT Int : 446 ms P-R-T Axes : 039 039 038 degrees QTc Int : 446 ms Normal sinus rhythm Normal ECG When compared with ECG of 22-DEC-2022 16:03, T wave amplitude has increased in Lateral leads Referred By: Henrique Gonzalez Electronically Signed By:INOCENCIO BERGMAN MD
[2023-02-27 21:57] VITALS: PULSE 55; RESP 18; TEMP 37; O2SAT 100; BMI 24.1
[2023-02-27] MEDS: LORazepam 2 MG/ML VIAL 1 MG IVPUSH (22:12)
[2023-02-27 22:18] LABS: MANUAL DIFF FLAG NO
[2023-02-27 22:20] LABS: Basophils Percent Auto 0.2 % (0-2); Eosinophils Percent Auto 0.4 % (0-4); Hematocrit 39.3 % (42.0-52.0); Hemoglobin 12.4 g/dl (14.0-18.0); Imm Gran Abs Auto 0.03 X10*3/uL (0.00-0.03); Imm Gran Pct Auto 0.3 % (0.0-0.4); Lymphocytes Absolute Auto 1.1 X10*3/uL (1.2-4.9); Lymphocytes Percent Auto 11.5 % (20-40); Mean Corpuscular HGB Conc 31.6 g/dl (31.0-36.0); Mean Corpuscular Hemoglobin 25.2 pg (27.0-33.0); Mean Corpuscular Volume 79.9 fL (80.0-98.0); Mean Platelet Volume 10.1 fL (9.4-12.4); Monocytes Absolute Auto 0.7 X10*3/uL (0.1-1.2); Monocytes Percent Auto 7.3 % (2-11); Neutrophils Absolute Auto 7.8 x10*3/uL (2.0-8.3); Neutrophils Percent Auto 80.3 % (45-73); Platelet Count 256 X10*3/uL (160-400); Red Blood Count 4.92 X10*6/uL (4.60-5.80); Red Cell Distribution Width 17.5 % (11.0-16.0); White Blood Count 9.7 X10*3/uL (4.8-10.8)
[2023-02-27 22:22] VITALS: BP 185/80; PULSE 70; RESP 16; TEMP 36.8; O2SAT 97
--- NOTE | 2023-02-27 22:23 | MHC.EDTECH ---
PT CAME IN VIA EMS ,PT WAS HOOKED UP TO [facility]IDE[facility] ,BLOOD DRAWN AND SENT TO LAB ,EKG DONE AND WAS READ BY PROVIDER .
[2023-02-27 22:30] LABS: INTERNATIONAL NORM RATIO 0.9 (0.9-1.1); Prothrombin Time 10.5 SEC (10.0-13.1)
[2023-02-27 22:41] LABS: Alanine Aminotransferase 24 U/L (0-40); Albumin Level 3.4 g/dL (3.5-5.0); Alkaline Phosphatase 81 U/L (39-117); Anion Gap 15 (12-20); Aspartate Amino Transferase 26 U/L (5-37); Bilirubin Total 0.4 mg/dL (0.0-1.0); Blood Urea Nitrogen 14 mg/dL (9-16); Calcium 8.5 mg/dL (8.4-10.2); Carbon Dioxide 22 mmol/L (22-29); Chloride 106 mmol/L (96-108); Creatinine Clr Calc Pharmacy 71.4; Estimated Glomerular Filt Rate > 60; Glucose Random 286 mg/dL (60-115); Potassium 4.1 mmol/L (3.3-5.1); Sodium 139 mmol/L (135-145)
[2023-02-27 22:44] LABS: Troponin-I High Sensitivity 4.3 ng/L (<3.5-35.0)
[2023-02-27 22:49] LABS: B Type Natriuretic Peptide 403 pg/mL (<100)
== END 2023-02-27 23:56 | disposition home or self-care (01) ==
PROVIDERS: Emergency Provider Internal Medicine; PCP Internal Medicine
DX: R07.89 Other chest pain (principal); F41.1 Generalized anxiety disorder; F43.0 Acute stress reaction; F43.20 Adjustment disorder, unspecified; R06.02 Shortness of breath; Z79.899 Other long term (current) drug therapy
CPT/HCPCS: 36415; 71045; 80053; 83880; 84484; 85025; 85610; 93005; 96374; 99284; 99285; J2060

== ENCOUNTER 2023-03-29 12:58 | Emergency (ER) | payer OTHER, SELFPAY ==
--- NOTE | ~2023-03-29 | XR_ITS ---
EXAMINATION: XR CHEST CLINICAL INFORMATION: CHF COMPARISON: February 27, 2023 TECHNIQUE: AP portable view of the chest was obtained. FINDINGS: No significant abnormality is noted involving the heart, lungs, mediastinum, bony thorax or soft tissues. XR/XR chest 1V IMPRESSION: No acute disease
[2023-03-29 13:24] VITALS: BP 150/90; PULSE 70; O2SAT 99
--- NOTE | 2023-03-29 13:27 | ECG_ITS ---
Test Reason : chest pain Blood Pressure : / mmHG Vent. Rate : 066 BPM Atrial Rate : 066 BPM P-R Int : 132 ms QRS Dur : 078 ms QT Int : 398 ms P-R-T Axes : 043 050 076 degrees QTc Int : 417 ms Normal sinus rhythm Normal ECG When compared with ECG of 27-FEB-2023 21:59, Non-specific change in ST segment in Inferior leads Referred By: Theresa Emmanuel Electronically Signed By:INOCENCIO BERGMAN MD
--- NOTE | 2023-03-29 13:29 | ED_ITS ---
HPI - Chest Pain General Chief Complaint: Chest Pain Stated Complaint: CP,DIZZY,SOB Time Seen by Provider: 03/29/23 13:21 Source: patient Mode of arrival: EMS Limitations: no limitations History of Present Illness HPI narrative: Patient comes to the emergency room complaining of shortness of breath. Patient states that he is known to have CHF, yesterday he started feeling a bit short of breath but today got much worse. Patient states that he estimates that he gained approximately 8 lb of weight. However he weighed himself in different scales. Patient denies chest pain. Patient states that he feels that his lower extremities got more swollen than usual and his abdomen as well. Denies nausea vomiting diarrhea. No UTI symptoms. Patient denies coughing more than usual, no fever. Related Data Home Medications Medication Instructions Recorded Confirmed albuterol sulfate 90 mcg/actuation 2 puff inhalation Q6H PRN 08/01/22 12/22/22 aerosol inhaler Shortness Of Breath Or Wheezing escitalopram oxalate 10 mg tablet 10 mg PO DAILY 08/01/22 12/22/22 insulin lispro 100 unit/mL See Rx Instructions .Route .COMPLEX 08/01/22 12/22/22 subcutaneous solution trazodone 50 mg tablet 50 mg PO BEDTIME 08/01/22 12/22/22 umeclidinium 62.5 mcg-vilanterol 1 inh inhalation DAILY 09/07/22 12/22/22 25 mcg/actuation powdr for inhalation (Anoro Ellipta) aspirin 81 mg tablet,delayed 81 mg PO DAILY 10/06/22 12/22/22 release atorvastatin 40 mg tablet 40 mg PO DAILY 10/06/22 12/22/22 gabapentin 300 mg capsule 300 mg PO TID 10/06/22 12/22/22 metoprolol succinate 100 mg 100 mg PO DAILY 10/06/22 12/22/22 tablet,extended release 24 hr omeprazole 40 mg capsule,delayed 40 mg PO DAILY@0630 10/06/22 12/22/22 release ipratropium 0.5 mg-albuterol 3 mg 3 ml inhalation Q8H PRN Shortness 11/03/22 12/22/22 (2.5 mg base)/3 mL nebulization Of Breath Or Wheezing soln nicotine (polacrilex) 2 mg gum 2 mg buccal Q1H PRN Nicotine 11/03/22 12/22/22 Cravings nicotine 21 mg/24 hr daily 21 mg transdermal DAILY PRN 11/03/22 12/22/22 transdermal patch Nicotine Cravings ferrous sulfate 324 mg (65 mg 1 tab PO DAILY 12/22/22 12/22/22 iron) tablet,delayed release Previous Rx's Medication Instructions Recorded amlodipine 10 mg tablet 10 mg PO DAILY 30 days #30 tabs 08/07/22 hydralazine 50 mg tablet 50 mg PO TID #90 tabs 08/13/22 furosemide 40 mg tablet 40 mg PO DAILY #30 tabs 08/20/22 magnesium oxide 400 mg (241.3 mg 400 mg PO BIDPC #60 tabs 08/20/22 magnesium) tablet sucralfate 1 gram tablet 1 g PO QIDACHS #120 tabs 09/10/22 doxycycline monohydrate 100 mg 100 mg PO Q12H #17 caps 12/28/22 capsule sodium zirconium cyclosilicate 10 10 g PO 3XW #15 ea 12/28/22 gram oral powder packet (Lokelma) sodium polystyrene sulfonate 15 g PO MOWEFR #453.6 grams 12/30/22 lorazepam 1 mg tablet (Ativan) 1 mg PO BEDTIME PRN sleep #14 tabs 02/27/23 furosemide 40 mg tablet (Lasix) 40 mg PO BID #10 tabs 03/29/23 Allergies Allergy/AdvReac Type Severity Reaction Status Date / Time dulaglutide [From [facility]] Allergy Unknown Verified 10/06/22 14:42 metformin [METFORMIN] AdvReac Mild DIARRHEA, Verified 10/06/22 14:42 nausea and vomiting Review of Systems Review of Systems: Constitutional : No Weight loss, No Fever, No Chills, No Night Sweats, No Fatigue, No Malaise ENT/Mouth : No Hearing loss, No Ear Pain, No Nasal Congestion, No Sinus Pain, No Hoarseness, No sore throat, No Rhinorrhea, No Swallowing Difficulty Eyes: No Eye Pain, No Swelling, No Redness, No Foreign Body, No Discharge, No Vision Changes Cardiovascular : No Chest Pain, complaining of orthopnea, dyspnea on exertion, worsening lower extremity edema Respiratory : No Cough, No Sputum, No Wheezing, No Smoke Exposure, complaining of Dyspnea Gastrointestinal : No Nausea, No Vomiting, No Diarrhea, No Constipation, No abdominal Pain, No Hematochezia, No Melena Genitourinary : no irregular bleeding, No Dysuria, No Urinary Frequency, No Hematuria, No Urinary Incontinence, No Urgency, No Flank Pain, No Urinary Flow Changes, No Hesitancy Musculoskeletal : No joint pain, No Myalgias, No Joint Swelling Skin : No Skin Lesions, No rash Neuro : No Weakness, No Numbness, No Paresthesias, No Loss of Consciousness, No Dizziness, No Headache Psych : No Anxiety/Panic, No Depression, No SI/HI/AH/VH, No Social Issues, Heme/Lymph: No Bruising, No Bleeding,No Lymphadenopathy Endocrine : No Polyuria, No Polydipsia, No Temperature Intolerance [facility] Past Medical History Medical History Acute on chronic anemia Acute on chronic diastolic (congestive) heart failure Acute respiratory failure KELVIN (acute kidney injury) Anxiety Asthma CHF exacerbation Chronic heart failure with preserved ejection fraction (HFpEF) CKD (chronic kidney disease) stage 1, GFR 90 ml/min or greater Congestive heart failure Depression Diabetes HLD (hyperlipidemia) HTN (hypertension) Hypercholesteremia Hyperglycemia due to type 2 diabetes mellitus Hypoxia YARELIS (obstructive sleep apnea) YARELIS (obstructive sleep apnea) PAD (peripheral artery disease) Uncontrolled hypertension Surgical History S/P angiogram of extremity Family History Family History Father Alzheimer disease CAD (coronary artery disease) Social History Social History Household Members: Family Housing: Apartment Do you presently have visiting nurse or other home services: No Alcohol intake: never Patient Tobacco Use Status: Current everyday Tobacco user Tobacco use type: Cigarette Cigarettes Per Day: 10 Years Smoked: >30 e-Cigarette/Vaping Use: Never Used Second Hand Smoke Exposure: No Substance Use Type: Marijuana Advance Directives: Yes Advance Directives on File: Yes Advance Directives Date on File: 06/21/21 service: No Current occupational status: disabled Physical Exam Vital Signs: Vital Signs: Last Vital Signs Temp 98.7 F 03/29/23 16:00 Pulse 64 03/29/23 16:00 Resp 16 03/29/23 16:00 BP 169/84 H 03/29/23 16:00 Pulse Ox 98 03/29/23 16:00 O2 Del Method Room Air 03/29/23 16:00 Const: Other: Appearance: Alert. Oriented X3. No acute distress. Eyes: Pupils equal, round and reactive to light. ENT: Pharynx normal. Neck: Normal inspection. Neck supple. No lymph nodes noted. No crepitus CVS: Normal heart rate and rhythm. Pulses normal. Normal S1 and S2 Respiratory: No respiratory distress. Breath sounds normal. No Wheezing. No rales or crackles Abdomen: Soft and nontender. No rigidity. No distention. Skin: Skin warm and dry. Normal skin color. Normal skin turgor. Extremities: +2 pitting edema bilaterally. No Lacerations. No Rash Neuro: Oriented X 3. No motor deficit. No sensory deficit. Moving all extremities. No slurred speech. CN 2 through 12 grossly intact Psych: calm, cooperative, normal affect Course Course Course Narrative: -of patient's labs and imaging pending -patient is saturating 97% on room air, breathing comfortably Medical Decision Making Medical Decision Making [facility] Narrative: Patient's BNP at baseline, my interpretation of chest x-ray : Very mild vascular congestion, no infiltrates. Oxygen saturation 96% on room air, walking around the emergency room 97% -patient given 1 dose of IV Lasix 60 mg -patient instructed to take 40 mg of Lasix twice a day instead of only once. Lab Data [facility] Lab Attestation statement: I reviewed the patient's lab results. 03/29/23 14:18 03/29/23 14:18 Labs: Lab Results 03/29/23 03/29/23 03/29/23 Range/Units 14:18 14:18 14:18 WBC 13.0 H (4.8-10.8) X10*3/uL RBC 4.71 (4.60-5.80) X10*6/uL Hgb 12.1 L (14.0-18.0) g/dl Hct 38.0 L (42.0-52.0) % MCV 80.7 (80.0-98.0) fL MCH 25.7 L (27.0-33.0) pg MCHC 31.8 (31.0-36.0) g/dl RDW 18.9 H (11.0-16.0) % Plt Count 274 (160-400) X10*3/uL MPV 10.5 (9.4-12.4) fL Immature Gran % (Auto) 0.6 H (0.0-0.4) % Neut % (Auto) 79.6 H (45-73) % Lymph % (Auto) 11.2 L (20-40) % Cameron % (Auto) 6.9 (2-11) % Eos % (Auto) 1.4 (0-4) % Baso % (Auto) 0.3 (0-2) % Lymph # (Auto) 1.5 (1.2-4.9) X10*3/uL Cameron # (Auto) 0.9 (0.1-1.2) X10*3/uL Eos # (Auto) 0.2 (0.0-0.4) X10*3/uL Baso # (Auto) 0.0 (0.0-0.2) X10*3/uL Abs Immat Gran (auto) 0.08 H (0.00-0.03) X10*3/uL Absolute Neuts (auto) 10.4 H (2.0-8.3) x10*3/uL Absolute Nucleated RBC 0.000 (0.0-0.012) X10*3/uL Nucleated RBC % (auto) 0.0 (0.0-0.2) /100WBC PT 9.6 L (10.0-13.1) SEC INR 0.8 L (0.9-1.1) VBG pH (7.32-7.43) VBG pCO2 mmHg VBG pO2 mmHg VBG HCO3 (22-26) mmol/L VBG O2 Saturation % VBG Base Excess mmol/L Sodium 142 (135-145) mmol/L Potassium 4.5 (3.3-5.1) mmol/L Chloride 107 (96-108) mmol/L Carbon Dioxide 28 (22-29) mmol/L Anion Gap 12 (12-20) BUN 16 (9-16) mg/dL Creatinine 1.05 (0.5-1.4) mg/dL Estim Creat Clear Calc TNP Estimated GFR > 60 Random Glucose 186 H (60-115) mg/dL Lactic Acid (0.5-2.0) mmol/L Calcium 9.6 D (8.4-10.2) mg/dL Total Bilirubin 0.3 (0.0-1.0) mg/dL Direct Bilirubin 0.1 (0.0-0.5) mg/dL AST 32 (5-37) U/L ALT 49 H (0-40) U/L Alkaline Phosphatase 117 (39-117) U/L Troponin I High Sens (<3.5-35.0) ng/L B-Natriuretic Peptide (<100) pg/mL Total Protein 6.9 (6.5-8.0) g/dL Albumin 3.8 (3.5-5.0) g/dL COVID-19 (XANDER) (Negative) COVID-19 Clin Com 03/29/23 03/29/23 03/29/23 Range/Units 14:18 14:18 14:18 WBC (4.8-10.8) X10*3/uL RBC (4.60-5.80) X10*6/uL Hgb (14.0-18.0) g/dl Hct (42.0-52.0) % MCV (80.0-98.0) fL MCH (27.0-33.0) pg MCHC (31.0-36.0) g/dl RDW (11.0-16.0) % Plt Count (160-400) X10*3/uL MPV (9.4-12.4) fL Immature Gran % (Auto) (0.0-0.4) % Neut % (Auto) (45-73) % Lymph % (Auto) (20-40) % Cameron % (Auto) (2-11) % Eos % (Auto) (0-4) % Baso % (Auto) (0-2) % Lymph # (Auto) (1.2-4.9) X10*3/uL Cameron # (Auto) (0.1-1.2) X10*3/uL Eos # (Auto) (0.0-0.4) X10*3/uL Baso # (Auto) (0.0-0.2) X10*3/uL Abs Immat Gran (auto) (0.00-0.03) X10*3/uL Absolute Neuts (auto) (2.0-8.3) x10*3/uL Absolute Nucleated RBC (0.0-0.012) X10*3/uL Nucleated RBC % (auto) (0.0-0.2) /100WBC PT (10.0-13.1) SEC INR (0.9-1.1) VBG pH (7.32-7.43) VBG pCO2 mmHg VBG pO2 mmHg VBG HCO3 (22-26) mmol/L VBG O2 Saturation % VBG Base Excess mmol/L Sodium (135-145) mmol/L Potassium (3.3-5.1) mmol/L Chloride (96-108) mmol/L Carbon Dioxide (22-29) mmol/L Anion Gap (12-20) BUN (9-16) mg/dL Creatinine (0.5-1.4) mg/dL Estim Creat Clear Calc Estimated GFR Random Glucose (60-115) mg/dL Lactic Acid 0.9 (0.5-2.0) mmol/L Calcium (8.4-10.2) mg/dL Total Bilirubin (0.0-1.0) mg/dL Direct Bilirubin (0.0-0.5) mg/dL AST (5-37) U/L ALT (0-40) U/L Alkaline Phosphatase (39-117) U/L Troponin I High Sens 4.1 (<3.5-35.0) ng/L B-Natriuretic Peptide 395 H (<100) pg/mL Total Protein (6.5-8.0) g/dL Albumin (3.5-5.0) g/dL COVID-19 (XANDER) (Negative) COVID-19 Clin Com 03/29/23 03/29/23 Range/Units 14:20 14:56 WBC (4.8-10.8) X10*3/uL RBC (4.60-5.80) X10*6/uL Hgb (14.0-18.0) g/dl Hct (42.0-52.0) % MCV (80.0-98.0) fL MCH (27.0-33.0) pg MCHC (31.0-36.0) g/dl RDW (11.0-16.0) % Plt Count (160-400) X10*3/uL MPV (9.4-12.4) fL Immature Gran % (Auto) (0.0-0.4) % Neut % (Auto) (45-73) % Lymph % (Auto) (20-40) % Cameron % (Auto) (2-11) % Eos % (Auto) (0-4) % Baso % (Auto) (0-2) % Lymph # (Auto) (1.2-4.9) X10*3/uL Cameron # (Auto) (0.1-1.2) X10*3/uL Eos # (Auto) (0.0-0.4) X10*3/uL Baso # (Auto) (0.0-0.2) X10*3/uL Abs Immat Gran (auto) (0.00-0.03) X10*3/uL Absolute Neuts (auto) (2.0-8.3) x10*3/uL Absolute Nucleated RBC (0.0-0.012) X10*3/uL Nucleated RBC % (auto) (0.0-0.2) /100WBC PT (10.0-13.1) SEC INR (0.9-1.1) VBG pH 7.41 (7.32-7.43) VBG pCO2 48 mmHg VBG pO2 37 mmHg VBG HCO3 31 H (22-26) mmol/L VBG O2 Saturation 59.0 % VBG Base Excess 5.6 mmol/L Sodium (135-145) mmol/L Potassium (3.3-5.1) mmol/L Chloride (96-108) mmol/L Carbon Dioxide (22-29) mmol/L Anion Gap (12-20) BUN (9-16) mg/dL Creatinine (0.5-1.4) mg/dL Estim Creat Clear Calc Estimated GFR Random Glucose (60-115) mg/dL Lactic Acid (0.5-2.0) mmol/L Calcium (8.4-10.2) mg/dL Total Bilirubin (0.0-1.0) mg/dL Direct Bilirubin (0.0-0.5) mg/dL AST (5-37) U/L ALT (0-40) U/L Alkaline Phosphatase (39-117) U/L Troponin I High Sens (<3.5-35.0) ng/L B-Natriuretic Peptide (<100) pg/mL Total Protein (6.5-8.0) g/dL Albumin (3.5-5.0) g/dL COVID-19 (XANDER) Negative (Negative) COVID-19 Clin Com See Note Radiology Impression Discussion of test interpretation with radiology: I have reviewed the radiologist's reading. Radiologist Impression: FINDINGS: No significant abnormality is noted involving the heart, lungs, mediastinum, bony thorax or soft tissues. XR/XR chest 1V IMPRESSION: No acute disease ? Discharge Plan Discharge Clinical Impression: CHF (congestive heart failure) Clinical Impression: (Ruled Out): COPD exacerbation Patient Disposition: Home, Self-Care Instructions: Heart Failure (ED) Additional Instructions: Please take Lasix 40 mg twice a day, morning and night. Please follow-up with your primary care physician tomorrow. If you have any worsening or new symptoms, please return to the emergency room or call 911 Prescriptions: New furosemide [Lasix] 40 mg tablet 40 mg PO BID Qty: 10 0RF No Action hydralazine 50 mg Tablet 50 mg PO TID Qty: 90 0RF Protocol: Hold for SBP< HOLD for SBP < : 90 Anoro Ellipta 62.5-25 mcg/actuation Blister With Device 1 inh INHALATION DAILY sucralfate 1 gram Tablet 1 g PO QIDACHS Qty: 120 0RF ipratropium-albuterol 0.5 mg-3 mg(2.5 mg base)/3 mL solution for nebulization 3 ml inhalation Q8H PRN (Reason: Shortness Of Breath Or Wheezing) nicotine (polacrilex) 2 mg gum 2 mg buccal Q1H PRN (Reason: Nicotine Cravings) Rx Instructions: do not exceed 24 pieces / day nicotine 21 mg/24 hr patch 24 hour 21 mg transdermal DAILY PRN (Reason: Nicotine Cravings) ferrous sulfate 324 mg (65 mg iron) tablet,delayed release (DR/EC) 1 tab PO DAILY Lokelma 10 gram powder in packet 10 g PO 3XW Qty: 15 0RF Rx Instructions: Mon Day Monday doxycycline monohydrate 100 mg Capsule 100 mg PO Q12H Qty: 17 0RF sodium polystyrene sulfonate Powder 15 g PO MOWEFR Qty: 453.6 0RF trazodone 50 mg tablet 50 mg PO BEDTIME insulin lispro 100 unit/mL solution See Rx Instructions .ROUTE .COMPLEX Rx Instructions: insulin pump; use up to 100 units daily; OMNIPOD delivers 0.75 units per hour albuterol sulfate 90 mcg/actuation HFA aerosol inhaler 2 puff INHALATION Q6H PRN (Reason: Shortness Of Breath Or Wheezing) escitalopram oxalate 10 mg tablet 10 mg PO DAILY amlodipine 10 mg Tablet 10 mg PO DAILY 30 Days Qty: 30 0RF Protocol: Hold for SBP< HOLD for SBP < : 90 atorvastatin 40 mg tablet 40 mg PO DAILY gabapentin 300 mg capsule 300 mg PO TID Hold Instructions: Resume on 11/07/22. metoprolol succinate 100 mg tablet extended release 24 hr 100 mg PO DAILY omeprazole 40 mg capsule,delayed release(DR/EC) 40 mg PO DAILY@0630 furosemide 40 mg Tablet 40 mg PO DAILY Qty: 30 0RF Hold Instructions: Resume on 11/07/22. Protocol: Hold for SBP< HOLD for SBP < : 90 magnesium oxide 400 mg (241.3 mg magnesium) Tablet 400 mg PO BIDPC Qty: 60 0RF lorazepam [Ativan] 1 mg tablet 1 mg PO BEDTIME PRN (Reason: sleep) Qty: 14 0RF aspirin 81 mg tablet,delayed release (DR/EC) 81 mg PO DAILY
[2023-03-29 14:32] LABS: MANUAL DIFF FLAG NO
[2023-03-29 14:42] LABS: INTERNATIONAL NORM RATIO 0.8 (0.9-1.1); Prothrombin Time 9.6 SEC (10.0-13.1)
[2023-03-29 14:46] LABS: Basophils Percent Auto 0.3 % (0-2); Eosinophils Absolute Auto 0.2 X10*3/uL (0.0-0.4); Eosinophils Percent Auto 1.4 % (0-4); Hemoglobin 12.1 g/dl (14.0-18.0); Imm Gran Abs Auto 0.08 X10*3/uL (0.00-0.03); Imm Gran Pct Auto 0.6 % (0.0-0.4); Lymphocytes Absolute Auto 1.5 X10*3/uL (1.2-4.9); Lymphocytes Percent Auto 11.2 % (20-40); Mean Corpuscular HGB Conc 31.8 g/dl (31.0-36.0); Mean Corpuscular Hemoglobin 25.7 pg (27.0-33.0); Mean Corpuscular Volume 80.7 fL (80.0-98.0); Mean Platelet Volume 10.5 fL (9.4-12.4); Monocytes Absolute Auto 0.9 X10*3/uL (0.1-1.2); Monocytes Percent Auto 6.9 % (2-11); Neutrophils Absolute Auto 10.4 x10*3/uL (2.0-8.3); Neutrophils Percent Auto 79.6 % (45-73); Platelet Count 274 X10*3/uL (160-400); Red Blood Count 4.71 X10*6/uL (4.60-5.80); Red Cell Distribution Width 18.9 % (11.0-16.0)
[2023-03-29 14:48] LABS: Lactic Acid 0.9 mmol/L (0.5-2.0)
[2023-03-29 14:53] LABS: Alanine Aminotransferase 49 U/L (0-40); Albumin Level 3.8 g/dL (3.5-5.0); Alkaline Phosphatase 117 U/L (39-117); Anion Gap 12 (12-20); Aspartate Amino Transferase 32 U/L (5-37); Bilirubin Direct 0.1 mg/dL (0.0-0.5); Bilirubin Total 0.3 mg/dL (0.0-1.0); Blood Urea Nitrogen 16 mg/dL (9-16); Calcium 9.6 mg/dL (8.4-10.2); Carbon Dioxide 28 mmol/L (22-29); Chloride 107 mmol/L (96-108); Estimated Glomerular Filt Rate > 60; Glucose Random 186 mg/dL (60-115); Potassium 4.5 mmol/L (3.3-5.1); Sodium 142 mmol/L (135-145); Total Protein 6.9 g/dL (6.5-8.0)
[2023-03-29 14:58] LABS: B Type Natriuretic Peptide 395 pg/mL (<100)
[2023-03-29 14:59] LABS: COVID-19 Test Negative (Negative); IDNOW Serial# 9DB6401D
[2023-03-29 14:59] LABS: Troponin-I High Sensitivity 4.1 ng/L (<3.5-35.0)
[2023-03-29 15:00] LABS: Venous Blood Gas Refer to POC result
[2023-03-29 15:03] LABS: VBG Base Excess 5.6 mmol/L; VBG HCO3 31 mmol/L (22-26); VBG pCO2 48 mmHg; VBG pH 7.41 (7.32-7.43); VBG pO2 37 mmHg
[2023-03-29 16:00] VITALS: BP 169/84; PULSE 64; RESP 16; TEMP 37.1; O2SAT 98
--- NOTE | 2023-03-29 16:16 | MHC.EDTECH ---
while ambulating patient 02 sat remain at 98 % on room air ,md kulkarni aware .
[2023-03-29] MEDS: Furosemide 100 MG/10 ML VIAL 60 MG IVPUSH (17:10)
== END 2023-03-29 17:29 | disposition home or self-care (01) ==
PROVIDERS: Emergency Provider Emergency Medicine; PCP Internal Medicine
DX: E11.22 Type 2 diabetes mellitus with diabetic chronic kidney disease (principal); I13.0 Hypertensive heart and chronic kidney disease with heart failure and stage 1 through stage 4 chronic kidney disease, or unspecified chronic kidney disease; N18.1 Chronic kidney disease, stage 1; I50.33 Acute on chronic diastolic (congestive) heart failure; Z20.822 Contact with and (suspected) exposure to COVID-19; R06.02 Shortness of breath; E78.00 Pure hypercholesterolemia, unspecified; F17.210 Nicotine dependence, cigarettes, uncomplicated; F12.90 Cannabis use, unspecified, uncomplicated; Z79.4 Long term (current) use of insulin; Z79.899 Other long term (current) drug therapy; Z79.02 Long term (current) use of antithrombotics/antiplatelets; Z79.82 Long term (current) use of aspirin
CPT/HCPCS: 36415; 71045; 80048; 80076; 82803; 83605; 83880; 84484; 85025; 85610; 87040; 87635; 93005; 96374; 99284; J1940

== ENCOUNTER 2023-03-31 22:59 | Emergency (ER) | payer OTHER, SELFPAY ==
--- NOTE | ~2023-03-31 | XR_ITS ---
EXAMINATION: XR CHEST CLINICAL INFORMATION: Acute dyspnea COMPARISON: 03/29/2023 TECHNIQUE: 2 views of the chest were obtained. FINDINGS: Lung volumes are symmetric. No focal consolidation is seen. Central interstitium appear slightly prominent which could reflect mild congestion. No evidence of pneumothorax or pleural effusion. The cardiomediastinal contour is unremarkable. No acute osseous findings are seen. XR/XR chest 2V IMPRESSION: No focal consolidation. Mildly prominent central interstitium may reflect mild congestion.
--- NOTE | 2023-03-31 23:13 | ECG_ITS ---
Test Reason : MED CLEARANCE Blood Pressure : / mmHG Vent. Rate : 079 BPM Atrial Rate : 079 BPM P-R Int : 142 ms QRS Dur : 082 ms QT Int : 374 ms P-R-T Axes : 029 044 062 degrees QTc Int : 428 ms Normal sinus rhythm Normal ECG When compared with ECG of 29-MAR-2023 13:35, No significant change was found Referred By: Generic ED Physician Electronically Signed By:INOCENCIO BERGMAN MD
[2023-03-31 23:41] VITALS: BP 157/79; BP 166/90; PULSE 80; RESP 18; O2SAT 97; O2SAT 98; BMI 24.6
--- NOTE | 2023-03-31 23:41 | ED.SOB ---
HPI - SOB/Dyspnea General Chief Complaint: Dyspnea Stated Complaint: CHF/ SOB Time Seen by Provider: 03/31/23 23:14 Source: patient and EMS Mode of arrival: EMS Limitations: no limitations History of Present Illness HPI Narrative: 47-year-old male with history of COPD, diabetes, CHF with preserved ejection fraction presents with shortness of breath. This is acute on chronic. He reports shortness of breath his longstanding but has gotten worse over the past 1-2 weeks. Is progressively getting worse. Worse with exertion and relieved by rest patient describes as symptoms as severe.. Also association with orthopnea and lower extremity edema. He has chronic chest tightness which is unchanged. Denies any fevers or chills. Has a cough. There is no hemoptysis or blood tinged sputum. Patient is reportedly compliant with his medications. He is on oxygen 4 L at night but not during the day. Patient does have a history of alcohol abuse but has not used alcohol in the past few years. Related Data Home Medications Medication Instructions Recorded Confirmed albuterol sulfate 90 mcg/actuation 2 puff inhalation Q6H PRN 08/01/22 12/22/22 aerosol inhaler Shortness Of Breath Or Wheezing escitalopram oxalate 10 mg tablet 10 mg PO DAILY 08/01/22 12/22/22 insulin lispro 100 unit/mL See Rx Instructions .Route .COMPLEX 08/01/22 12/22/22 subcutaneous solution trazodone 50 mg tablet 50 mg PO BEDTIME 08/01/22 12/22/22 umeclidinium 62.5 mcg-vilanterol 1 inh inhalation DAILY 09/07/22 12/22/22 25 mcg/actuation powdr for inhalation (Anoro Ellipta) aspirin 81 mg tablet,delayed 81 mg PO DAILY 10/06/22 12/22/22 release atorvastatin 40 mg tablet 40 mg PO DAILY 10/06/22 12/22/22 gabapentin 300 mg capsule 300 mg PO TID 10/06/22 12/22/22 metoprolol succinate 100 mg 100 mg PO DAILY 10/06/22 12/22/22 tablet,extended release 24 hr omeprazole 40 mg capsule,delayed 40 mg PO DAILY@0630 10/06/22 12/22/22 release ipratropium 0.5 mg-albuterol 3 mg 3 ml inhalation Q8H PRN Shortness 11/03/22 12/22/22 (2.5 mg base)/3 mL nebulization Of Breath Or Wheezing soln nicotine (polacrilex) 2 mg gum 2 mg buccal Q1H PRN Nicotine 11/03/22 12/22/22 Cravings nicotine 21 mg/24 hr daily 21 mg transdermal DAILY PRN 11/03/22 12/22/22 transdermal patch Nicotine Cravings ferrous sulfate 324 mg (65 mg 1 tab PO DAILY 12/22/22 12/22/22 iron) tablet,delayed release Previous Rx's Medication Instructions Recorded amlodipine 10 mg tablet 10 mg PO DAILY 30 days #30 tabs 08/07/22 hydralazine 50 mg tablet 50 mg PO TID #90 tabs 08/13/22 furosemide 40 mg tablet 40 mg PO DAILY #30 tabs 08/20/22 magnesium oxide 400 mg (241.3 mg 400 mg PO BIDPC #60 tabs 08/20/22 magnesium) tablet sucralfate 1 gram tablet 1 g PO QIDACHS #120 tabs 09/10/22 doxycycline monohydrate 100 mg 100 mg PO Q12H #17 caps 12/28/22 capsule sodium zirconium cyclosilicate 10 10 g PO 3XW #15 ea 12/28/22 gram oral powder packet (Lokelma) sodium polystyrene sulfonate 15 g PO MOWEFR #453.6 grams 12/30/22 lorazepam 1 mg tablet (Ativan) 1 mg PO BEDTIME PRN sleep #14 tabs 02/27/23 furosemide 40 mg tablet (Lasix) 40 mg PO BID #10 tabs 03/29/23 metolazone 5 mg tablet 5 mg PO DAILY #5 tabs 04/01/23 Allergies Allergy/AdvReac Type Severity Reaction Status Date / Time dulaglutide [From [facility]] Allergy Unknown Verified 10/06/22 14:42 metformin [METFORMIN] AdvReac Mild DIARRHEA, Verified 10/06/22 14:42 nausea and vomiting Review of Systems Review of Systems: CONSTITUTIONAL: Denies weight loss, fever and chills. HEENT: Denies changes in vision and hearing. RESPIRATORY: Positive SOB and cough. CV: Denies palpitations positive CP. GI: Denies abdominal pain, nausea, vomiting and diarrhea. : Denies dysuria and urinary frequency. MSK: Denies myalgia and joint pain. SKIN: Denies rash and pruritus. NEUROLOGICAL: Denies headache and syncope. PSYCHIATRIC: Denies recent changes in mood. Denies anxiety and depression. All other ROS are negative unless in HPI PMFSH Past Medical History Medical History Acute on chronic anemia Acute on chronic diastolic (congestive) heart failure Acute respiratory failure KELVIN (acute kidney injury) Anxiety Asthma CHF exacerbation Chronic heart failure with preserved ejection fraction (HFpEF) CKD (chronic kidney disease) stage 1, GFR 90 ml/min or greater Congestive heart failure Depression Diabetes HLD (hyperlipidemia) HTN (hypertension) Hypercholesteremia Hyperglycemia due to type 2 diabetes mellitus Hypoxia YARELIS (obstructive sleep apnea) YARELIS (obstructive sleep apnea) PAD (peripheral artery disease) Uncontrolled hypertension Surgical History S/P angiogram of extremity Family History Family History Father Alzheimer disease CAD (coronary artery disease) Social History Social History Household Members: Family Housing: Apartment Do you presently have visiting nurse or other home services: No Alcohol intake: current Alcohol intake frequency: a few times a month Alcohol type: beer Patient Tobacco Use Status: Current everyday Tobacco user Tobacco use type: Cigarette Cigarettes Per Day: 10 Years Smoked: >30 Smoked in Last 30 Days: Yes e-Cigarette/Vaping Use: Never Used Second Hand Smoke Exposure: No Use of substances other than those prescribed or required for medical reasons: No Substance Use Type: Marijuana Advance Directives: Yes Advance Directives on File: Yes Advance Directives Date on File: 06/21/21 service: No Current occupational status: disabled Physical Exam Vital Signs: Vital Signs: Last Vital Signs Temp 98.4 F 04/01/23 00:35 Pulse 60 04/01/23 04:13 Resp 15 04/01/23 04:13 BP 108/65 04/01/23 04:13 Pulse Ox 93 04/01/23 04:13 O2 Del Method Room Air 04/01/23 04:13 O2 Flow Rate 2 04/01/23 00:35 Oxygen Flow Rate 2 03/31/23 23:41 BMI result Body Mass Index 24.6 GEN: Well developed, no acute distress, alert, oriented, uncomfortable appearing HEENT: Normocephalic, atraumatic, normal external ears, nose appears normal, no oropharyngeal edema or exudates Eyes: Normal to appearance Neck: Supple, no lymphadenopathy Respiratory: Talks in complete sentences, no respiratory distress, clear to auscultation bilaterally Cardiovascular: Regular rate and rhythm, no murmurs rubs or gallops Abdomen: Soft, nontender, nondistended, no guarding, no rebound Back: No CVA tenderness Extremities: No clubbing cyanosis trace by pedal edema Neurologic: No focal neurologic deficits, cranial nerves 2-12 intact, strength is 5/5 bilaterally Skin: No rash Course Course Course Narrative: 47-year-old male with multiple medical problems presents with acute dyspnea. This is acute or chronic. He is currently saturating 96% on 2 L nasal cannula. He does use 4 L nasal cannula at night. He does have trace edema. His lungs are clear to auscultation bilaterally. Patient will have a significant workup including chest x-ray, EKG, cardiac monitoring, oxygen monitoring, laboratory analysis. Treatment will be directed at the underlying etiology. Reevaluation(s) Reevaluation #1: Chest x-ray appears to be consistent with early CHF. Will put patient on nitroglycerin paste and Lasix. Will re-evaluate patient Time: 23:57 Reevaluation #2: Patient is feeling much better at this time. Ambulatory. He has shortness of breath is significantly better. He continues of some mild lower extremity edema and some discomfort there. He has a follow-up with his primary care provider on Monday. Outpatient the patient on metolazone to primary kidneys to help diurese some any can return for any worsening symptoms. Time: 06:06 Medications Administered Discontinued Medications Generic Name Dose Route Start Last Admin Trade Name Freq PRN Reason Stop Dose Admin Furosemide 40 mg 03/31/23 23:56 04/01/23 00:30 Furosemide 40 Mg/4 Ml Vial IVPUSH 03/31/23 23:57 40 mg ONCE ONE Administration Protocol Nitroglycerin 1 inch 03/31/23 23:56 04/01/23 00:30 Nitroglycerin 2 % Oint 1 Gm Packet TRANSDERMA 03/31/23 23:57 1 inch ONCE ONE Administration Medical Decision Making Medical Decision Making MDM Narrative: 47-year-old male with multiple medical problems presents with acute on chronic dyspnea. Examination revealed trace bipedal edema and uncomfortable appearing patient. He is mildly hypertensive. Lungs were actually clear to auscultation bilaterally. The differential diagnosis includes CHF, COPD exacerbation, pneumonia, bronchitis, influenza, COVID, anemia, electrolyte abnormality. Will check a chest x-ray, EKG, laboratory analysis. Patient will placed on a cafeteria monitor. Will continuously monitor oxygen saturation. There is no definite indication for an ABG at this time however would consider this. Differential Diagnosis Differential Diagnoses: The differential diagnosis associated with the presentation includes (See above) Lab Data MDM Lab Attestation statement: I reviewed the patient's lab results. 03/31/23 23:33 03/31/23 23:33 Labs: Lab Results 03/31/23 03/31/23 03/31/23 Range/Units 23:33 23:33 23:33 WBC 13.9 H (4.8-10.8) X10*3/uL RBC 3.75 L D (4.60-5.80) X10*6/uL Hgb 10.0 L (14.0-18.0) g/dl Hct 31.0 L (42.0-52.0) % MCV 82.7 (80.0-98.0) fL MCH 26.7 L (27.0-33.0) pg MCHC 32.3 (31.0-36.0) g/dl RDW 19.0 H (11.0-16.0) % Plt Count 267 (160-400) X10*3/uL MPV 11.0 (9.4-12.4) fL Immature Gran % (Auto) 0.6 H (0.0-0.4) % Neut % (Auto) 76.8 H (45-73) % Lymph % (Auto) 13.8 L (20-40) % Weston % (Auto) 7.2 (2-11) % Eos % (Auto) 1.2 (0-4) % Baso % (Auto) 0.4 (0-2) % Lymph # (Auto) 1.9 (1.2-4.9) X10*3/uL Weston # (Auto) 1.0 (0.1-1.2) X10*3/uL Eos # (Auto) 0.2 (0.0-0.4) X10*3/uL Baso # (Auto) 0.1 (0.0-0.2) X10*3/uL Abs Immat Gran (auto) 0.09 H (0.00-0.03) X10*3/uL Absolute Neuts (auto) 10.7 H (2.0-8.3) x10*3/uL Absolute Nucleated RBC 0.000 (0.0-0.012) X10*3/uL Nucleated RBC % (auto) 0.0 (0.0-0.2) /100WBC Sodium 138 (135-145) mmol/L Potassium 4.3 (3.3-5.1) mmol/L Chloride 107 (96-108) mmol/L Carbon Dioxide 23 (22-29) mmol/L Anion Gap 12 (12-20) BUN 29 H (9-16) mg/dL Creatinine 1.64 H (0.5-1.4) mg/dL Estim Creat Clear Calc 47.9 Estimated GFR 45 Random Glucose 282 H (60-115) mg/dL Lactic Acid (0.5-2.0) mmol/L Calcium 8.8 D (8.4-10.2) mg/dL Total Bilirubin 0.2 (0.0-1.0) mg/dL AST 31 (5-37) U/L ALT 46 H (0-40) U/L Alkaline Phosphatase 127 H (39-117) U/L Troponin I High Sens 4.2 (<3.5-35.0) ng/L B-Natriuretic Peptide (<100) pg/mL Total Protein 6.1 L (6.5-8.0) g/dL Albumin 3.5 (3.5-5.0) g/dL Urine Color Urine Appearance Urine pH (5.0-9.0) Ur Specific [place] (1.005-1.025) Urine Protein (Neg-Trace) mg/dL Urine Glucose (UA) (Negative) mg/dL Urine Ketones (Negative) mg/dL Urine Blood (Negative) Urine Nitrite (Negative) Ur Leukocyte Esterase (Negative) Urine RBC (0-2) /HPF Urine WBC (0-5) /HPF Ur Squamous Epith Cells (0-2) /HPF Urine Bacteria (None Seen) Hyaline Casts (0-2) /LPF COVID-19 (XANDER) (Negative) COVID-19 Clin Com Influenza Type A (MAYELIN) (Negative) Influenza Type B (MAYELIN) (Negative) Influenza A & B Note 03/31/23 03/31/23 03/31/23 Range/Units 23:33 23:33 23:38 WBC (4.8-10.8) X10*3/uL RBC (4.60-5.80) X10*6/uL Hgb (14.0-18.0) g/dl Hct (42.0-52.0) % MCV (80.0-98.0) fL MCH (27.0-33.0) pg MCHC (31.0-36.0) g/dl RDW (11.0-16.0) % Plt Count (160-400) X10*3/uL MPV (9.4-12.4) fL Immature Gran % (Auto) (0.0-0.4) % Neut % (Auto) (45-73) % Lymph % (Auto) (20-40) % Weston % (Auto) (2-11) % Eos % (Auto) (0-4) % Baso % (Auto) (0-2) % Lymph # (Auto) (1.2-4.9) X10*3/uL Weston # (Auto) (0.1-1.2) X10*3/uL Eos # (Auto) (0.0-0.4) X10*3/uL Baso # (Auto) (0.0-0.2) X10*3/uL Abs Immat Gran (auto) (0.00-0.03) X10*3/uL Absolute Neuts (auto) (2.0-8.3) x10*3/uL Absolute Nucleated RBC (0.0-0.012) X10*3/uL Nucleated RBC % (auto) (0.0-0.2) /100WBC Sodium (135-145) mmol/L Potassium (3.3-5.1) mmol/L Chloride (96-108) mmol/L Carbon Dioxide (22-29) mmol/L Anion Gap (12-20) BUN (9-16) mg/dL Creatinine (0.5-1.4) mg/dL Estim Creat Clear Calc Estimated GFR Random Glucose (60-115) mg/dL Lactic Acid 1.0 (0.5-2.0) mmol/L Calcium (8.4-10.2) mg/dL Total Bilirubin (0.0-1.0) mg/dL AST (5-37) U/L ALT (0-40) U/L Alkaline Phosphatase (39-117) U/L Troponin I High Sens (<3.5-35.0) ng/L B-Natriuretic Peptide 154 H (<100) pg/mL Total Protein (6.5-8.0) g/dL Albumin (3.5-5.0) g/dL Urine Color Urine Appearance Urine pH (5.0-9.0) Ur Specific [place] (1.005-1.025) Urine Protein (Neg-Trace) mg/dL Urine Glucose (UA) (Negative) mg/dL Urine Ketones (Negative) mg/dL Urine Blood (Negative) Urine Nitrite (Negative) Ur Leukocyte Esterase (Negative) Urine RBC (0-2) /HPF Urine WBC (0-5) /HPF Ur Squamous Epith Cells (0-2) /HPF Urine Bacteria (None Seen) Hyaline Casts (0-2) /LPF COVID-19 (XANDER) (Negative) COVID-19 Clin Com Influenza Type A (MAYELIN) Negative (Negative) Influenza Type B (MAYELIN) Negative (Negative) Influenza A & B Note See Note 03/31/23 04/01/23 Range/Units 23:38 01:02 WBC (4.8-10.8) X10*3/uL RBC (4.60-5.80) X10*6/uL Hgb (14.0-18.0) g/dl Hct (42.0-52.0) % MCV (80.0-98.0) fL MCH (27.0-33.0) pg MCHC (31.0-36.0) g/dl RDW (11.0-16.0) % Plt Count (160-400) X10*3/uL MPV (9.4-12.4) fL Immature Gran % (Auto) (0.0-0.4) % Neut % (Auto) (45-73) % Lymph % (Auto) (20-40) % Weston % (Auto) (2-11) % Eos % (Auto) (0-4) % Baso % (Auto) (0-2) % Lymph # (Auto) (1.2-4.9) X10*3/uL Weston # (Auto) (0.1-1.2) X10*3/uL Eos # (Auto) (0.0-0.4) X10*3/uL Baso # (Auto) (0.0-0.2) X10*3/uL Abs Immat Gran (auto) (0.00-0.03) X10*3/uL Absolute Neuts (auto) (2.0-8.3) x10*3/uL Absolute Nucleated RBC (0.0-0.012) X10*3/uL Nucleated RBC % (auto) (0.0-0.2) /100WBC Sodium (135-145) mmol/L Potassium (3.3-5.1) mmol/L Chloride (96-108) mmol/L Carbon Dioxide (22-29) mmol/L Anion Gap (12-20) BUN (9-16) mg/dL Creatinine (0.5-1.4) mg/dL Estim Creat Clear Calc Estimated GFR Random Glucose (60-115) mg/dL Lactic Acid (0.5-2.0) mmol/L Calcium (8.4-10.2) mg/dL Total Bilirubin (0.0-1.0) mg/dL AST (5-37) U/L ALT (0-40) U/L Alkaline Phosphatase (39-117) U/L Troponin I High Sens (<3.5-35.0) ng/L B-Natriuretic Peptide (<100) pg/mL Total Protein (6.5-8.0) g/dL Albumin (3.5-5.0) g/dL Urine Color Yellow Urine Appearance Clear Urine pH 6.0 (5.0-9.0) Ur Specific [place] 1.015 (1.005-1.025) Urine Protein 300 (3+) H (Neg-Trace) mg/dL Urine Glucose (UA) 100 H (Negative) mg/dL Urine Ketones Negative (Negative) mg/dL Urine Blood Negative (Negative) Urine Nitrite Negative (Negative) Ur Leukocyte Esterase Negative (Negative) Urine RBC 3-5 H (0-2) /HPF Urine WBC 0-5 (0-5) /HPF Ur Squamous Epith Cells 0-2 (0-2) /HPF Urine Bacteria None Seen (None Seen) Hyaline Casts 0-2 (0-2) /LPF COVID-19 (XANDER) Negative (Negative) COVID-19 Clin Com See Note Influenza Type A (MAYELIN) (Negative) Influenza Type B (MAYELIN) (Negative) Influenza A & B Note Independent Interpretation I performed an independent interpretation of an: EKG (Normal sinus rhythm heart rate 79, no acute ST elevations depressions, nonspecific T-wave changes noted, no significant changes compared to previous) and Plain X-Ray (Chest: Prominent vasculature, no large pleural effusion, cephalization, consistent with early CHF) Independent Historian Clinical information obtained from an independent historian. History obtained from or confirmed by: EMS Tests considered The following testing was considered but not selected: CT chest Discharge Plan Discharge Clinical Impression: Dyspnea, Edema, peripheral Patient Disposition: Home, Self-Care Instructions: Leg Edema (ED), Dyspnea (ED) Additional Instructions: Take metolazone 30 minutes to 1 hour prior to taking your for awesome I had to help increase the ability to get fluid off of your body. Return to the emergency department for progressive shortness of breath, increasing swelling of the legs or any other concerning symptoms. Prescriptions: New metolazone 5 mg tablet 5 mg PO DAILY Qty: 5 0RF Rx Instructions: take 1 hour before furosemide No Action hydralazine 50 mg Tablet 50 mg PO TID Qty: 90 0RF Protocol: Hold for SBP< HOLD for SBP < : 90 Anoro Ellipta 62.5-25 mcg/actuation Blister With Device 1 inh INHALATION DAILY sucralfate 1 gram Tablet 1 g PO QIDACHS Qty: 120 0RF ipratropium-albuterol 0.5 mg-3 mg(2.5 mg base)/3 mL solution for nebulization 3 ml inhalation Q8H PRN (Reason: Shortness Of Breath Or Wheezing) nicotine (polacrilex) 2 mg gum 2 mg buccal Q1H PRN (Reason: Nicotine Cravings) Rx Instructions: do not exceed 24 pieces / day nicotine 21 mg/24 hr patch 24 hour 21 mg transdermal DAILY PRN (Reason: Nicotine Cravings) ferrous sulfate 324 mg (65 mg iron) tablet,delayed release (DR/EC) 1 tab PO DAILY Lokelma 10 gram powder in packet 10 g PO 3XW Qty: 15 0RF Rx Instructions: Mon Day Monday doxycycline monohydrate 100 mg Capsule 100 mg PO Q12H Qty: 17 0RF sodium polystyrene sulfonate Powder 15 g PO MOWEFR Qty: 453.6 0RF trazodone 50 mg tablet 50 mg PO BEDTIME insulin lispro 100 unit/mL solution See Rx Instructions .ROUTE .COMPLEX Rx Instructions: insulin pump; use up to 100 units daily; OMNIPOD delivers 0.75 units per hour albuterol sulfate 90 mcg/actuation HFA aerosol inhaler 2 puff INHALATION Q6H PRN (Reason: Shortness Of Breath Or Wheezing) escitalopram oxalate 10 mg tablet 10 mg PO DAILY amlodipine 10 mg Tablet 10 mg PO DAILY 30 Days Qty: 30 0RF Protocol: Hold for SBP< HOLD for SBP < : 90 atorvastatin 40 mg tablet 40 mg PO DAILY gabapentin 300 mg capsule 300 mg PO TID Hold Instructions: Resume on 11/07/22. metoprolol succinate 100 mg tablet extended release 24 hr 100 mg PO DAILY omeprazole 40 mg capsule,delayed release(DR/EC) 40 mg PO DAILY@0630 furosemide 40 mg Tablet 40 mg PO DAILY Qty: 30 0RF Hold Instructions: Resume on 11/07/22. Protocol: Hold for SBP< HOLD for SBP < : 90 magnesium oxide 400 mg (241.3 mg magnesium) Tablet 400 mg PO BIDPC Qty: 60 0RF lorazepam [Ativan] 1 mg tablet 1 mg PO BEDTIME PRN (Reason: sleep) Qty: 14 0RF furosemide [Lasix] 40 mg tablet 40 mg PO BID Qty: 10 0RF aspirin 81 mg tablet,delayed release (DR/EC) 81 mg PO DAILY Referrals: Physician,Unknown J [Primary Care Provider] - (Follow up with PMD on Monday as scheduled)
[2023-03-31 23:43] LABS: MANUAL DIFF FLAG NO
[2023-03-31 23:45] LABS: Basophils Absolute Auto 0.1 X10*3/uL (0.0-0.2); Basophils Percent Auto 0.4 % (0-2); Eosinophils Absolute Auto 0.2 X10*3/uL (0.0-0.4); Eosinophils Percent Auto 1.2 % (0-4); Imm Gran Abs Auto 0.09 X10*3/uL (0.00-0.03); Imm Gran Pct Auto 0.6 % (0.0-0.4); Lymphocytes Absolute Auto 1.9 X10*3/uL (1.2-4.9); Lymphocytes Percent Auto 13.8 % (20-40); Mean Corpuscular HGB Conc 32.3 g/dl (31.0-36.0); Mean Corpuscular Hemoglobin 26.7 pg (27.0-33.0); Mean Corpuscular Volume 82.7 fL (80.0-98.0); Monocytes Percent Auto 7.2 % (2-11); Neutrophils Absolute Auto 10.7 x10*3/uL (2.0-8.3); Neutrophils Percent Auto 76.8 % (45-73); Platelet Count 267 X10*3/uL (160-400); Red Blood Count 3.75 X10*6/uL (4.60-5.80); White Blood Count 13.9 X10*3/uL (4.8-10.8)
[2023-04-01] LABS: Alanine Aminotransferase 46 U/L (0-40); Albumin Level 3.5 g/dL (3.5-5.0); Alkaline Phosphatase 127 U/L (39-117); Anion Gap 12 (12-20); Aspartate Amino Transferase 31 U/L (5-37); Bilirubin Total 0.2 mg/dL (0.0-1.0); Blood Urea Nitrogen 29 mg/dL (9-16); Calcium 8.8 mg/dL (8.4-10.2); Carbon Dioxide 23 mmol/L (22-29); Chloride 107 mmol/L (96-108); Creatinine Clr Calc Pharmacy 47.9; Estimated Glomerular Filt Rate 45; Glucose Random 282 mg/dL (60-115); Potassium 4.3 mmol/L (3.3-5.1); Sodium 138 mmol/L (135-145); Total Protein 6.1 g/dL (6.5-8.0)
[2023-04-01 00:05] LABS: B Type Natriuretic Peptide 154 pg/mL (<100)
[2023-04-01 00:08] LABS: Troponin-I High Sensitivity 4.2 ng/L (<3.5-35.0)
[2023-04-01] MEDS: Nitroglycerin 2 % Oint 1 GM Packet 1 INCH TRANSDERMA (00:30)
[2023-04-01] MEDS: Furosemide 40 MG/4 ML VIAL IVPUSH (00:30)
[2023-04-01 00:35] VITALS: BP 158/82; PULSE 80; RESP 22; TEMP 36.9; O2SAT 96
[2023-04-01 00:41] LABS: COVID-19 Test Negative (Negative); IDNOW Serial# 08D9AD1C; IDNOW Serial# BCCEAD1C; Influenza A Negative (Negative); Influenza B2 Negative (Negative)
--- NOTE | 2023-04-01 00:42 | PC.NURSE ---
AOx4. Nitro patch placed on left side of chest. Pt medicated as ordered and tolerated well. Ambulatory to the bathroom with no assistance and steady gait.
[2023-04-01 01:09] LABS: Appearance Urine Clear; Color Urine Yellow; Glucose Urine UA 100 mg/dL (Negative); Leukocyte Esterase Urine Negative (Negative); Nitrite Urine Negative (Negative); Specific Gravity - Urine 1.015 (1.005-1.025); UMIC TRIGGER UACC YES; Urine Blood Negative (Negative); Urine Ketones Negative (Negative); Urine Protein 300 (3+) mg/dL (Neg-Trace)
[2023-04-01 01:14] LABS: Bacteria Urine None Seen (None Seen); Hyaline Casts Urine 0-2 /LPF (0-2); Squamous Epithelial Cell Urine 0-2 /HPF (0-2); WBC Urine 0-5 /HPF (0-5)
[2023-04-01 04:13] VITALS: BP 108/65; PULSE 60; RESP 15; O2SAT 93
[2023-04-01 06:08] VITALS: BP 153/81; PULSE 75; RESP 20; O2SAT 95
== END 2023-04-01 06:22 | disposition home or self-care (01) ==
PROVIDERS: Emergency Provider Emergency Medicine
DX: R06.02 Shortness of breath (principal); R60.0 Localized edema; Z79.899 Other long term (current) drug therapy; Z20.822 Contact with and (suspected) exposure to COVID-19; Z20.828 Contact with and (suspected) exposure to other viral communicable diseases
CPT/HCPCS: 36415; 71046; 80053; 81001; 83605; 83880; 84484; 85025; 87502; 87635; 93005; 96374; 99284; 99285; J1940

== ENCOUNTER 2023-04-05 16:17 | Emergency (ER) | payer OTHER, SELFPAY ==
--- NOTE | ~2023-04-05 | XR_ITS ---
EXAMINATION: XR CHEST CLINICAL INFORMATION: Reason for Exam pain COMPARISON: Chest radiograph 03/31/2023 TECHNIQUE: 2 views of the chest FINDINGS: Lines and tubes: None. Left upper lobe airspace opacity which may reflect infection or atelectasis. Follow-up radiographs to ensure resolution. No pleural effusion. No pneumothorax. Normal cardiomediastinal silhouette. XR/XR chest 2V IMPRESSION: Left upper lobe airspace opacity which may reflect infection or atelectasis. Follow-up radiographs to ensure resolution. If persistent, CT chest could be obtained for further characterization.
--- NOTE | 2023-04-05 16:22 | ED.GENADULT ---
HPI - General Adult General Chief complaint: General Medical Stated complaint: CHF, feet swollen, abd swollen, high blood sugar Time Seen by Provider: 04/05/23 19:09 Source: patient Mode of arrival: ambulatory Limitations: no limitations History of Present Illness HPI narrative: 47 year old male presents to the ED with concerns for shortness of breath, swollen legs SOL and elevated blood sugar. He is on a insulin pump. He states he doesn't know how to give himself any extrra doses. He states he is always thirsty and doesn't know how much he drinks leading to the swelling. He was seen here 5 days ago for the same and states he saw his PCP 2 days ago. He states he was told to come back if his blood glucose was above 400. He denies fever chills cough nausea vomiting or diarrhea. Onset (ago): day(s) Related Data Home Medications Medication Instructions Recorded Confirmed albuterol sulfate 90 mcg/actuation 2 puff inhalation Q6H PRN 08/01/22 12/22/22 aerosol inhaler Shortness Of Breath Or Wheezing escitalopram oxalate 10 mg tablet 10 mg PO DAILY 08/01/22 12/22/22 insulin lispro 100 unit/mL See Rx Instructions .Route .COMPLEX 08/01/22 12/22/22 subcutaneous solution trazodone 50 mg tablet 50 mg PO BEDTIME 08/01/22 12/22/22 umeclidinium 62.5 mcg-vilanterol 1 inh inhalation DAILY 09/07/22 12/22/22 25 mcg/actuation powdr for inhalation (Anoro Ellipta) aspirin 81 mg tablet,delayed 81 mg PO DAILY 10/06/22 12/22/22 release atorvastatin 40 mg tablet 40 mg PO DAILY 10/06/22 12/22/22 gabapentin 300 mg capsule 300 mg PO TID 10/06/22 12/22/22 metoprolol succinate 100 mg 100 mg PO DAILY 10/06/22 12/22/22 tablet,extended release 24 hr omeprazole 40 mg capsule,delayed 40 mg PO DAILY@0630 10/06/22 12/22/22 release ipratropium 0.5 mg-albuterol 3 mg 3 ml inhalation Q8H PRN Shortness 11/03/22 12/22/22 (2.5 mg base)/3 mL nebulization Of Breath Or Wheezing soln nicotine (polacrilex) 2 mg gum 2 mg buccal Q1H PRN Nicotine 11/03/22 12/22/22 Cravings nicotine 21 mg/24 hr daily 21 mg transdermal DAILY PRN 11/03/22 12/22/22 transdermal patch Nicotine Cravings ferrous sulfate 324 mg (65 mg 1 tab PO DAILY 12/22/22 12/22/22 iron) tablet,delayed release Previous Rx's Medication Instructions Recorded amlodipine 10 mg tablet 10 mg PO DAILY 30 days #30 tabs 08/07/22 hydralazine 50 mg tablet 50 mg PO TID #90 tabs 08/13/22 furosemide 40 mg tablet 40 mg PO DAILY #30 tabs 08/20/22 magnesium oxide 400 mg (241.3 mg 400 mg PO BIDPC #60 tabs 08/20/22 magnesium) tablet sucralfate 1 gram tablet 1 g PO QIDACHS #120 tabs 09/10/22 doxycycline monohydrate 100 mg 100 mg PO Q12H #17 caps 12/28/22 capsule sodium zirconium cyclosilicate 10 10 g PO 3XW #15 ea 12/28/22 gram oral powder packet (Lokelma) sodium polystyrene sulfonate 15 g PO MOWEFR #453.6 grams 12/30/22 lorazepam 1 mg tablet (Ativan) 1 mg PO BEDTIME PRN sleep #14 tabs 02/27/23 furosemide 40 mg tablet (Lasix) 40 mg PO BID #10 tabs 03/29/23 metolazone 5 mg tablet 5 mg PO DAILY #5 tabs 04/01/23 Allergies Allergy/AdvReac Type Severity Reaction Status Date / Time dulaglutide [From [facility]] Allergy Unknown Verified 04/05/23 16:22 metformin [METFORMIN] AdvReac Mild DIARRHEA, Verified 04/05/23 16:22 nausea and vomiting Review of Systems Review of Systems: Review of systems: General: Patient denies any fever chills recent illness or falls Musculoskeletal: Denies back pain or body aches or other injuries HEENT: denies headache, runny nose, ear pain Respiratory: shortness of breath, cough Cardiovascular: no chest pain or palpitations : denies dysuria, frequency Abdomen: no nausea vomiting denies abdominal pain Extremities: lower extremity swelling, no pain Skin: no diaphoresis Yes all other systems are reviewed and are negative PMFSH Past Medical History Medical History Acute on chronic anemia Acute on chronic diastolic (congestive) heart failure Acute respiratory failure KELVIN (acute kidney injury) Anxiety Asthma CHF exacerbation Chronic heart failure with preserved ejection fraction (HFpEF) CKD (chronic kidney disease) stage 1, GFR 90 ml/min or greater Congestive heart failure Depression Diabetes HLD (hyperlipidemia) HTN (hypertension) Hypercholesteremia Hyperglycemia due to type 2 diabetes mellitus Hypoxia YARELIS (obstructive sleep apnea) YARELIS (obstructive sleep apnea) PAD (peripheral artery disease) Uncontrolled hypertension Surgical History S/P angiogram of extremity Family History Family History Father Alzheimer disease CAD (coronary artery disease) Social History Social History Household Members: Family Housing: Apartment Do you presently have visiting nurse or other home services: No Alcohol intake: current Alcohol intake frequency: holidays/special occasions only Alcohol type: beer Patient Tobacco Use Status: Current everyday Tobacco user Tobacco use type: Cigarette Cigarettes Per Day: 10 Years Smoked: >30 Smoked in Last 30 Days: Yes e-Cigarette/Vaping Use: Never Used Second Hand Smoke Exposure: No Use of substances other than those prescribed or required for medical reasons: No Substance Use Type: Marijuana Advance Directives: Yes Advance Directives on File: Yes Advance Directives Date on File: 06/21/21 service: No Current occupational status: disabled Physical Exam ED Vital Signs: Vital Signs - 24 hr 04/05/23 16:23 04/05/23 19:28 Temperature 98 F 99.0 F Pulse Rate 75 73 Respiratory Rate 16 18 Blood Pressure 160/73 H 158/80 H Pulse Oximetry 98 93 Oxygen Delivery Method Room Air BMI result Body Mass Index 22.6 General: Well-appearing well-nourished in no signs of distress HEENT: Normocephalic atraumatic Neck: No signs of JVD, no masses no tenderness or lymphadenopathy Cardiovascular: Regular rate and rhythm Respiratory: Clear to auscultation bilaterally Abdomen: Soft nontender no masses Extremities: Normal pedal pulses minimal pedal edema Skin: Dry warm no rashes Back: No tenderness full ROM Course Course Course Narrative: 47-year-old male past medical history significant for diabetes, COPD, CHF presents for evaluation of elevated blood sugars and swelling in his legs all with tooth abdomen. He also complains of shortness of breath. Plan for labs including BMP, chest x-ray Reevaluation(s) Reevaluation #1: 204 Repeat blood sugar is normal patient looks well I will discharge home. Medications Administered Discontinued Medications Generic Name Dose Route Start Last Admin Trade Name Gisell PRN Reason Stop Dose Admin Doxycycline Monohydrate 100 mg 04/05/23 19:22 04/05/23 19:44 Doxycycline Monohydrate 100 Mg Capsule PO 04/05/23 19:23 100 mg ONCE ONE Administration Insulin Human Lispro 5 unit 04/05/23 19:21 04/05/23 19:43 Insulin Lispro 100 Unit/Ml 3 Ml Vial SUBCUT 04/05/23 19:22 5 unit ONCE ONE Administration Medical Decision Making Medical Decision Making [facility] Narrative: He has no signs of DKA with elevated BS on a insulin pump doesn't make much sense. Also he doesn't know how to dose himself. I will give some insulin here. He is also drinking too much water and then is worried about swelling. I will give some doxycycline for concerns of pneumonia. I think as long as the glucose comes down he is safe to go home. Differential Diagnosis Differential Diagnoses: The differential diagnosis associated with the presentation includes DKA, hyperglycemia, CHF pneumonia Admission/Observation Consideration of admission/observation: Escalation of care including admission/observation considered Not warranted in this case. Lab Data [facility] Lab Attestation statement: I reviewed the patient's lab results. 04/05/23 16:40 04/05/23 16:40 Labs: Lab Results 04/05/23 04/05/23 04/05/23 Range/Units 16:40 16:40 16:40 WBC 13.0 H (4.8-10.8) X10*3/uL RBC 3.87 L (4.60-5.80) X10*6/uL Hgb 10.4 L (14.0-18.0) g/dl Hct 31.6 L (42.0-52.0) % MCV 81.7 (80.0-98.0) fL MCH 26.9 L (27.0-33.0) pg MCHC 32.9 (31.0-36.0) g/dl RDW 18.6 H (11.0-16.0) % Plt Count 296 (160-400) X10*3/uL MPV 11.8 (9.4-12.4) fL Immature Gran % (Auto) 0.8 H (0.0-0.4) % Neut % (Auto) 74.6 H (45-73) % Lymph % (Auto) 15.6 L (20-40) % [place] % (Auto) 7.2 (2-11) % Eos % (Auto) 1.3 (0-4) % Baso % (Auto) 0.5 (0-2) % Lymph # (Auto) 2.0 (1.2-4.9) X10*3/uL [place] # (Auto) 0.9 (0.1-1.2) X10*3/uL Eos # (Auto) 0.2 (0.0-0.4) X10*3/uL Baso # (Auto) 0.1 (0.0-0.2) X10*3/uL Abs Immat Gran (auto) 0.10 H (0.00-0.03) X10*3/uL Absolute Neuts (auto) 9.7 H (2.0-8.3) x10*3/uL Absolute Nucleated RBC 0.000 (0.0-0.012) X10*3/uL Nucleated RBC % (auto) 0.0 (0.0-0.2) /100WBC Sodium 137 (135-145) mmol/L Potassium 4.3 (3.3-5.1) mmol/L Chloride 104 (96-108) mmol/L Carbon Dioxide 23 (22-29) mmol/L Anion Gap 14 (12-20) BUN 29 H (9-16) mg/dL Creatinine 1.80 H (0.5-1.4) mg/dL Estim Creat Clear Calc 43.6 Estimated GFR 40 POC Glucose (60-115) mg/dL Random Glucose 495 H* (60-115) mg/dL Calcium 9.6 D (8.4-10.2) mg/dL Total Bilirubin 0.2 (0.0-1.0) mg/dL AST 21 (5-37) U/L ALT 30 (0-40) U/L Alkaline Phosphatase 142 H (39-117) U/L B-Natriuretic Peptide 247 H (<100) pg/mL Total Protein 6.7 (6.5-8.0) g/dL Albumin 3.8 (3.5-5.0) g/dL Lipase 96 H (8-78) U/L 04/05/23 Range/Units 20:30 WBC (4.8-10.8) X10*3/uL RBC (4.60-5.80) X10*6/uL Hgb (14.0-18.0) g/dl Hct (42.0-52.0) % MCV (80.0-98.0) fL MCH (27.0-33.0) pg MCHC (31.0-36.0) g/dl RDW (11.0-16.0) % Plt Count (160-400) X10*3/uL MPV (9.4-12.4) fL Immature Gran % (Auto) (0.0-0.4) % Neut % (Auto) (45-73) % Lymph % (Auto) (20-40) % [place] % (Auto) (2-11) % Eos % (Auto) (0-4) % Baso % (Auto) (0-2) % Lymph # (Auto) (1.2-4.9) X10*3/uL [place] # (Auto) (0.1-1.2) X10*3/uL Eos # (Auto) (0.0-0.4) X10*3/uL Baso # (Auto) (0.0-0.2) X10*3/uL Abs Immat Gran (auto) (0.00-0.03) X10*3/uL Absolute Neuts (auto) (2.0-8.3) x10*3/uL Absolute Nucleated RBC (0.0-0.012) X10*3/uL Nucleated RBC % (auto) (0.0-0.2) /100WBC Sodium (135-145) mmol/L Potassium (3.3-5.1) mmol/L Chloride (96-108) mmol/L Carbon Dioxide (22-29) mmol/L Anion Gap (12-20) BUN (9-16) mg/dL Creatinine (0.5-1.4) mg/dL Estim Creat Clear Calc Estimated GFR POC Glucose 178 H (60-115) mg/dL Random Glucose (60-115) mg/dL Calcium (8.4-10.2) mg/dL Total Bilirubin (0.0-1.0) mg/dL AST (5-37) U/L ALT (0-40) U/L Alkaline Phosphatase (39-117) U/L B-Natriuretic Peptide (<100) pg/mL Total Protein (6.5-8.0) g/dL Albumin (3.5-5.0) g/dL Lipase (8-78) U/L External Record Review External record reviewed: Inpatient record, Outpatient record and Outside ED record Discharge Plan Discharge Clinical Impression: Hyperglycemia, Edema, peripheral Patient Disposition: Home, Self-Care Instructions: Leg Edema (ED), Diabetic Hyperglycemia (ED) Additional Instructions: You were seen today for hyperglycemia and peripheral edema Your labs showed elevated blood sugar. Concerning that your insulin pump isn't working. You do have an infiltrate on XR I will give you some doxycline to treat for pneumonia. If you have any other concerns please return to the ED. Prescriptions: No Action hydralazine 50 mg Tablet 50 mg PO TID Qty: 90 0RF Protocol: Hold for SBP< HOLD for SBP < : 90 Anoro Ellipta 62.5-25 mcg/actuation Blister With Device 1 inh INHALATION DAILY sucralfate 1 gram Tablet 1 g PO QIDACHS Qty: 120 0RF ipratropium-albuterol 0.5 mg-3 mg(2.5 mg base)/3 mL solution for nebulization 3 ml inhalation Q8H PRN (Reason: Shortness Of Breath Or Wheezing) nicotine (polacrilex) 2 mg gum 2 mg buccal Q1H PRN (Reason: Nicotine Cravings) Rx Instructions: do not exceed 24 pieces / day nicotine 21 mg/24 hr patch 24 hour 21 mg transdermal DAILY PRN (Reason: Nicotine Cravings) ferrous sulfate 324 mg (65 mg iron) tablet,delayed release (DR/EC) 1 tab PO DAILY Lokelma 10 gram powder in packet 10 g PO 3XW Qty: 15 0RF Rx Instructions: Mon Day Monday doxycycline monohydrate 100 mg Capsule 100 mg PO Q12H Qty: 17 0RF sodium polystyrene sulfonate Powder 15 g PO MOWEFR Qty: 453.6 0RF trazodone 50 mg tablet 50 mg PO BEDTIME insulin lispro 100 unit/mL solution See Rx Instructions .ROUTE .COMPLEX Rx Instructions: insulin pump; use up to 100 units daily; OMNIPOD delivers 0.75 units per hour albuterol sulfate 90 mcg/actuation HFA aerosol inhaler 2 puff INHALATION Q6H PRN (Reason: Shortness Of Breath Or Wheezing) escitalopram oxalate 10 mg tablet 10 mg PO DAILY amlodipine 10 mg Tablet 10 mg PO DAILY 30 Days Qty: 30 0RF Protocol: Hold for SBP< HOLD for SBP < : 90 atorvastatin 40 mg tablet 40 mg PO DAILY gabapentin 300 mg capsule 300 mg PO TID Hold Instructions: Resume on 11/07/22. metoprolol succinate 100 mg tablet extended release 24 hr 100 mg PO DAILY omeprazole 40 mg capsule,delayed release(DR/EC) 40 mg PO DAILY@0630 furosemide 40 mg Tablet 40 mg PO DAILY Qty: 30 0RF Hold Instructions: Resume on 11/07/22. Protocol: Hold for SBP< HOLD for SBP < : 90 magnesium oxide 400 mg (241.3 mg magnesium) Tablet 400 mg PO BIDPC Qty: 60 0RF lorazepam [Ativan] 1 mg tablet 1 mg PO BEDTIME PRN (Reason: sleep) Qty: 14 0RF furosemide [Lasix] 40 mg tablet 40 mg PO BID Qty: 10 0RF metolazone 5 mg tablet 5 mg PO DAILY Qty: 5 0RF Rx Instructions: take 1 hour before furosemide aspirin 81 mg tablet,delayed release (DR/EC) 81 mg PO DAILY
[2023-04-05 16:23] VITALS: BP 160/73; PULSE 75; RESP 16; TEMP 36.6; O2SAT 98; BMI 22.6
--- NOTE | 2023-04-05 16:24 | ECG_ITS ---
Test Reason : SWOLLEN LEGS/CHF Blood Pressure : / mmHG Vent. Rate : 077 BPM Atrial Rate : 077 BPM P-R Int : 140 ms QRS Dur : 078 ms QT Int : 370 ms P-R-T Axes : 046 048 069 degrees QTc Int : 418 ms Normal sinus rhythm Normal ECG When compared with ECG of 31-MAR-2023 23:49, No significant change was found Referred By: Mik Olmstead Electronically Signed By:Sadiq Rivera
[2023-04-05 16:44] LABS: MANUAL DIFF FLAG NO
[2023-04-05 16:53] LABS: Basophils Absolute Auto 0.1 X10*3/uL (0.0-0.2); Basophils Percent Auto 0.5 % (0-2); Eosinophils Absolute Auto 0.2 X10*3/uL (0.0-0.4); Eosinophils Percent Auto 1.3 % (0-4); Hematocrit 31.6 % (42.0-52.0); Hemoglobin 10.4 g/dl (14.0-18.0); Imm Gran Pct Auto 0.8 % (0.0-0.4); Lymphocytes Percent Auto 15.6 % (20-40); Mean Corpuscular HGB Conc 32.9 g/dl (31.0-36.0); Mean Corpuscular Hemoglobin 26.9 pg (27.0-33.0); Mean Corpuscular Volume 81.7 fL (80.0-98.0); Mean Platelet Volume 11.8 fL (9.4-12.4); Monocytes Absolute Auto 0.9 X10*3/uL (0.1-1.2); Monocytes Percent Auto 7.2 % (2-11); Neutrophils Absolute Auto 9.7 x10*3/uL (2.0-8.3); Neutrophils Percent Auto 74.6 % (45-73); Platelet Count 296 X10*3/uL (160-400); Red Blood Count 3.87 X10*6/uL (4.60-5.80); Red Cell Distribution Width 18.6 % (11.0-16.0)
[2023-04-05 17:06] LABS: Alanine Aminotransferase 30 U/L (0-40); Albumin Level 3.8 g/dL (3.5-5.0); Alkaline Phosphatase 142 U/L (39-117); Anion Gap 14 (12-20); Aspartate Amino Transferase 21 U/L (5-37); Bilirubin Total 0.2 mg/dL (0.0-1.0); Blood Urea Nitrogen 29 mg/dL (9-16); Calcium 9.6 mg/dL (8.4-10.2); Carbon Dioxide 23 mmol/L (22-29); Chloride 104 mmol/L (96-108); Creatinine Clr Calc Pharmacy 43.6; Estimated Glomerular Filt Rate 40; Glucose Random 495 mg/dL (60-115); Lipase 96 U/L (8-78); Potassium 4.3 mmol/L (3.3-5.1); Sodium 137 mmol/L (135-145); Total Protein 6.7 g/dL (6.5-8.0)
[2023-04-05 17:09] LABS: B Type Natriuretic Peptide 247 pg/mL (<100)
[2023-04-05 19:28] VITALS: BP 158/80; PULSE 73; RESP 18; TEMP 37.2; O2SAT 93
[2023-04-05] MEDS: Insulin Lispro 100 UNIT/ML 3 ML VIAL SUBCUT (19:43)
[2023-04-05] MEDS: Doxycycline Monohydrate 100 MG CAPSULE PO (19:44)
--- NOTE | 2023-04-05 19:48 | PC.NURSE ---
Patient alert and oriented x4. States he has been feeling SOB and noted edema of his feet. Patient noted he was here a few days ago for CHF related complications and was told to increase his lasik dose but there has been no relief the SOB. +1 non pitting edema noted in bilateral ankles. Abdomen distended which patient notes is not usual. Vitals stables. Labs drawn, xray complete. Administered medications as per MAR. Will continue to follow plan of care
[2023-04-05 20:34] LABS: Glucose, Whole Blood 178 mg/dL (60-115)
== END 2023-04-05 20:51 | disposition home or self-care (01) ==
PROVIDERS: Physician Assistant; Emergency Provider Student in an Organized Health Care Education/Training Program; PCP Internal Medicine
DX: E11.65 Type 2 diabetes mellitus with hyperglycemia (principal); R60.0 Localized edema; R06.02 Shortness of breath; E11.22 Type 2 diabetes mellitus with diabetic chronic kidney disease; I13.0 Hypertensive heart and chronic kidney disease with heart failure and stage 1 through stage 4 chronic kidney disease, or unspecified chronic kidney disease; N18.1 Chronic kidney disease, stage 1; I50.9 Heart failure, unspecified; Z96.41 Presence of insulin pump (external) (internal); E78.00 Pure hypercholesterolemia, unspecified; F17.210 Nicotine dependence, cigarettes, uncomplicated; F12.90 Cannabis use, unspecified, uncomplicated; Z79.4 Long term (current) use of insulin; Z79.899 Other long term (current) drug therapy; Z79.02 Long term (current) use of antithrombotics/antiplatelets; Z79.82 Long term (current) use of aspirin
CPT/HCPCS: 36415; 71046; 80053; 82947; 83690; 83880; 85025; 93005; 99283; 99284

== ENCOUNTER 2023-04-16 21:57 | Inpatient (IN) | payer OTHER, SELFPAY ==
--- NOTE | ~2023-04-16 | XR_ITS ---
EXAMINATION: XR CHEST CLINICAL INFORMATION: Shortness of breath. COMPARISON: Chest radiograph 04/05/2023. TECHNIQUE: 2 views of the chest were obtained. FINDINGS: New patchy airspace opacities with interstitial thickening in the mid and lower lungs. No pleural effusion or pneumothorax. Stable cardiomediastinal silhouette. No acute osseous abnormalities. XR/XR chest 2V IMPRESSION: New patchy airspace opacities with interstitial thickening in the mid and lower lungs. Findings are suspicious for an atypical infection, continued follow-up recommended.
--- NOTE | ~2023-04-16 | US_ITS ---
EXAMINATION: US VENOUS ULTRASOUND WITH DOPPLER LOWER EXTREMITY, BILATERAL CLINICAL INFORMATION: Lower extremity swelling COMPARISON: None available. TECHNIQUE: Ultrasound of the deep veins is performed from the hip to the calf with compression sonography and color and pulse Doppler assessment. Spectral analysis with color-flow imaging is performed. FINDINGS: RIGHT: There is normal venous compression and respiratory variation and augmented flow. The visualized common femoral vein, superficial femoral vein, profunda femoral vein, popliteal vein, and the trifurcation region shows no evidence of deep venous thrombosis. There is no significant popliteal fossa cyst. LEFT: There is normal venous compression and respiratory variation and augmented flow. The visualized common femoral vein, superficial femoral vein, profunda femoral vein, popliteal vein, and the trifurcation region shows no evidence of deep venous thrombosis. There is no significant popliteal fossa cyst. If the patient's symptoms persist, followup ultrasound in 5 days 7 days might be of value to exclude proximal propagation from a non-visualized calf vein. US/US venous duplex LE BI IMPRESSION: No DVT demonstrated in the bilateral lower extremities
[2023-04-16 21:51] VITALS: BP 142/78; BP 144/74; PULSE 84; RESP 20; TEMP 37.1; O2SAT 85; O2SAT 94; BMI 25.9
--- NOTE | 2023-04-16 22:48 | ECG_ITS ---
Test Reason : DYSPNEA Blood Pressure : / mmHG Vent. Rate : 082 BPM Atrial Rate : 082 BPM P-R Int : 162 ms QRS Dur : 078 ms QT Int : 358 ms P-R-T Axes : 054 059 066 degrees QTc Int : 418 ms Normal sinus rhythm Normal ECG When compared with ECG of 05-APR-2023 16:28, No significant change was found Referred By: Karla Deal Electronically Signed By:JESSICA LY
[2023-04-16 23:47] LABS: Basophils Absolute Auto 0.1 X10*3/uL (0.0-0.2); Basophils Percent Auto 0.4 % (0-2); Eosinophils Absolute Auto 0.3 X10*3/uL (0.0-0.4); Hematocrit 30.3 % (42.0-52.0); Hemoglobin 9.4 g/dl (14.0-18.0); Imm Gran Abs Auto 0.07 X10*3/uL (0.00-0.03); Imm Gran Pct Auto 0.5 % (0.0-0.4); Lymphocytes Absolute Auto 2.4 X10*3/uL (1.2-4.9); Lymphocytes Percent Auto 15.8 % (20-40); MANUAL DIFF FLAG NO; Mean Corpuscular Hemoglobin 25.3 pg (27.0-33.0); Mean Corpuscular Volume 81.5 fL (80.0-98.0); Mean Platelet Volume 11.3 fL (9.4-12.4); Monocytes Absolute Auto 1.2 X10*3/uL (0.1-1.2); Monocytes Percent Auto 7.5 % (2-11); Neutrophils Absolute Auto 11.3 x10*3/uL (2.0-8.3); Neutrophils Percent Auto 73.8 % (45-73); Platelet Count 245 X10*3/uL (160-400); Red Blood Count 3.72 X10*6/uL (4.60-5.80); Red Cell Distribution Width 17.8 % (11.0-16.0); White Blood Count 15.3 X10*3/uL (4.8-10.8)
--- NOTE | 2023-04-16 23:52 | ED_ITS ---
HPI - SOB/Dyspnea General Chief Complaint: Dyspnea Stated Complaint: SOB Time Seen by Provider: 04/16/23 23:47 Source: patient Mode of arrival: EMS Limitations: no limitations History of Present Illness HPI Narrative: 47-year-old male with history of diabetes mellitus, COPD, congestive heart failure with normal VF, chronic kidney disease, PAD, GI bleed, who presents to the emergency department for evaluation of shortness of breath, light headedness and chest pain. The patient states that he ate dinner and then after dinner he gradually became short of breath. He states that he checked his O2 saturation at home and it was 75%. He called an ambulance the paramedics documented an O2 saturation of 74 %, on 2 L he came up to 92%. Patient states that he has been having intermittent chest pain over the last 2 days. He does have a history of congestive heart failure and has noted swelling in his abdomen and lower extremities right greater than left. His review of systems was positive for rhinorrhea, sore throat, occasional cough which is minimally productive and intermittent chest pain over the last 2 days. He denied nausea, vomiting but he has had diarrhea which resolved. Related Data Home Medications Medication Instructions Recorded Confirmed albuterol sulfate 90 mcg/actuation 2 puff inhalation Q6H PRN 08/01/22 12/22/22 aerosol inhaler Shortness Of Breath Or Wheezing escitalopram oxalate 10 mg tablet 10 mg PO DAILY 08/01/22 12/22/22 insulin lispro 100 unit/mL See Rx Instructions .Route .COMPLEX 08/01/22 12/22/22 subcutaneous solution trazodone 50 mg tablet 50 mg PO BEDTIME 08/01/22 12/22/22 umeclidinium 62.5 mcg-vilanterol 1 inh inhalation DAILY 09/07/22 12/22/22 25 mcg/actuation powdr for inhalation (Anoro Ellipta) aspirin 81 mg tablet,delayed 81 mg PO DAILY 10/06/22 12/22/22 release atorvastatin 40 mg tablet 40 mg PO DAILY 10/06/22 12/22/22 gabapentin 300 mg capsule 300 mg PO TID 10/06/22 12/22/22 metoprolol succinate 100 mg 100 mg PO DAILY 10/06/22 12/22/22 tablet,extended release 24 hr omeprazole 40 mg capsule,delayed 40 mg PO DAILY@0630 10/06/22 12/22/22 release ipratropium 0.5 mg-albuterol 3 mg 3 ml inhalation Q8H PRN Shortness 11/03/22 12/22/22 (2.5 mg base)/3 mL nebulization Of Breath Or Wheezing soln nicotine (polacrilex) 2 mg gum 2 mg buccal Q1H PRN Nicotine 11/03/22 12/22/22 Cravings nicotine 21 mg/24 hr daily 21 mg transdermal DAILY PRN 11/03/22 12/22/22 transdermal patch Nicotine Cravings ferrous sulfate 324 mg (65 mg 1 tab PO DAILY 12/22/22 12/22/22 iron) tablet,delayed release Previous Rx's Medication Instructions Recorded amlodipine 10 mg tablet 10 mg PO DAILY 30 days #30 tabs 08/07/22 hydralazine 50 mg tablet 50 mg PO TID #90 tabs 08/13/22 furosemide 40 mg tablet 40 mg PO DAILY #30 tabs 08/20/22 magnesium oxide 400 mg (241.3 mg 400 mg PO BIDPC #60 tabs 08/20/22 magnesium) tablet sucralfate 1 gram tablet 1 g PO QIDACHS #120 tabs 09/10/22 doxycycline monohydrate 100 mg 100 mg PO Q12H #17 caps 12/28/22 capsule sodium zirconium cyclosilicate 10 10 g PO 3XW #15 ea 12/28/22 gram oral powder packet (Lokelma) sodium polystyrene sulfonate 15 g PO MOWEFR #453.6 grams 12/30/22 lorazepam 1 mg tablet (Ativan) 1 mg PO BEDTIME PRN sleep #14 tabs 02/27/23 furosemide 40 mg tablet (Lasix) 40 mg PO BID #10 tabs 03/29/23 metolazone 5 mg tablet 5 mg PO DAILY #5 tabs 04/01/23 Allergies Allergy/AdvReac Type Severity Reaction Status Date / Time [facility] Allergy Unknown Verified 04/05/23 16:22 metformin [METFORMIN] AdvReac Mild DIARRHEA, Verified 04/05/23 16:22 nausea and vomiting Review of Systems Review of Systems: Yes all other systems are reviewed and are negative [facility] Past Medical History [facility] Narrative: Social history: He smokes 1/2 pack of cigarettes per day times 31 years. He drinks alcohol occasionally. He denies drug use. Medical History Acute on chronic anemia Acute on chronic diastolic (congestive) heart failure Acute respiratory failure KELVIN (acute kidney injury) Anxiety Asthma CHF exacerbation Chronic heart failure with preserved ejection fraction (HFpEF) CKD (chronic kidney disease) stage 1, GFR 90 ml/min or greater Congestive heart failure Depression Diabetes HLD (hyperlipidemia) HTN (hypertension) Hypercholesteremia Hyperglycemia due to type 2 diabetes mellitus Hypoxia YARELIS (obstructive sleep apnea) YARELIS (obstructive sleep apnea) PAD (peripheral artery disease) Uncontrolled hypertension Surgical History S/P angiogram of extremity Family History Family History Father Alzheimer disease CAD (coronary artery disease) Social History Social History Household Members: Family Housing: Apartment Do you presently have visiting nurse or other home services: No Alcohol intake: current Alcohol intake frequency: holidays/special occasions only Alcohol type: beer Patient Tobacco Use Status: Current everyday Tobacco user Tobacco use type: Cigarette Cigarettes Per Day: 10 Years Smoked: >30 Smoked in Last 30 Days: Yes e-Cigarette/Vaping Use: Never Used Second Hand Smoke Exposure: No Use of substances other than those prescribed or required for medical reasons: No Substance Use Type: Marijuana Advance Directives: Yes Advance Directives on File: Yes Advance Directives Date on File: 06/21/21 service: No Current occupational status: disabled Physical Exam Vital Signs: Vital Signs: Last Vital Signs Temp 98.8 F 04/17/23 00:00 Pulse 75 04/17/23 04:33 Resp 18 04/17/23 04:33 BP 149/75 H 04/17/23 04:33 Pulse Ox 98 04/17/23 04:33 O2 Del Method BiPAP 04/17/23 04:33 O2 Flow Rate 8 04/17/23 04:33 Oxygen Flow Rate 5 04/16/23 21:51 BMI result Body Mass Index 25.9 Const: Other: Awake, alert, male patient, pleasant, cooperative in no distress HEENT: Head: Yes normal to inspection, Yes normocephalic and Yes atraumatic Ears: external ears normal General nose exam: Normal external nose present Face and sinus: Yes normal facial exam Mouth: Normal oral and palatal mucosa present Throat: Yes posterior oropharynx normal Eyes: General: appearance normal, both eyes and all related structures Neck: Neck: Yes normal visual inspection, Yes no lymphadenopathy, Yes trachea midline and Yes supple Chest: Chest palpation & inspection: normal inspection of the chest and normal palpation of entire chest wall Resp: Other: Breath sounds symmetric bilaterally, rales at the bases, no wheezing or rhonchi Cardio: Rate: regular rate Rhythm: regular rhythm Heart sounds: S1 normal heart sound present, S2 normal heart sound present and no murmurs GI: Inspection: Yes normal to inspection Palpation (GI): Soft to palpation, nontender and no guarding Auscultation: normal bowel sounds : General: Yes no CVA tenderness Back/Spine/Pelvis: Back: no CVA tenderness Skin: General skin exam: no rashes or lesions noted Neuro: Cognition (Neuro): normal cognition Motor exam (neuro): 5/5 motor strength present throughout Extrem: Other: 1+ pitting edema bilateral, right lower extremity larger than left Psych: Appearance: grossly normal Speech and movement: Normal speech and movement present Affect: normal affect Attitude: cooperative Medications Administered Discontinued Medications Generic Name Dose Route Start Last Admin Trade Name Freq PRN Reason Stop Dose Admin Aspirin 162 mg 04/17/23 00:06 04/17/23 00:35 Aspirin 81 Mg Tab.Chew PO 04/17/23 00:07 162 mg ONCE ONE Administration Furosemide 80 mg 04/17/23 00:03 04/17/23 01:00 Furosemide 100 Mg/10 Ml Vial IVPUSH 04/17/23 00:04 80 mg ONCE ONE Administration Protocol Furosemide 80 mg 04/17/23 04:16 04/17/23 04:28 Furosemide 100 Mg/10 Ml Vial IVPUSH 04/17/23 04:17 80 mg ONCE ONE Administration Protocol Medical Decision Making Medical Decision Making MDM Narrative: 47-year-old male with history of diabetes mellitus, COPD, congestive heart failure with normal VF, chronic kidney disease, PAD, GI bleed, who presents to the emergency department for evaluation of shortness of breath, light headedness and chest pain. Patient had a O2 saturation of 74% on room air noted by the paramedics, this improved with oxygen via nasal cannula. Patient's vital signs in the emergency department did reveal O2 saturations as well, and elevated blood pressure of 144/74. Lung exam did reveal rales at the bases and 1+ pitting edema lower extremities with the right lower extremity being larger than the left. The following tests were ordered by me CBC, CMP, COVID-19, magnesium, troponin, venous blood gas, BNP, chest x-ray, EKG. 0014: Patient's 12 EKG was unremarkable Chest x-ray is consistent with pulmonary edema Patient was ordered to be placed on oxygen Patient was given Lasix 80 mg IV push Will obtain duplex ultrasound lower extremities rule out DVTs 0144: Patient's BNP was elevated 325, troponin was below detectable limits. Patient does have elevation in his BUN and creatinine with his chronic. Patient continues to have low O2 saturations to site being on high-flow oxygen via nasal cannula therefore I will place him on BiPAP until he further diuresis. 0417: The patient had a urine output of 1000 mL. I ordered a 2nd dose of Lasix 80 mg IV. He was place him on OxyMask at 8 liters/minute with O2 saturations in the 92 to 94% range which is significantly improved The patient does have obstructive sleep apnea and wears CPAP at night with oxy gen at last 4 L. I will discuss admission with the covering hospitalist. 0434: I did discuss admission with the covering hospitalist, Dr. Ricardo. Differential Diagnosis Differential Diagnoses: The differential diagnosis associated with the presentation includes Differential diagnosis includes was not limited to pneumonia, COPD exacerbation, CHF Admission/Observation Consideration of admission/observation: Escalation of care including admission/observation considered Lab Data MDM Lab Attestation statement: I reviewed the patient's lab results. My independent interpretation patient's her laboratory evaluation is as follows: Elevated WBC 71269, anemia with an H&H of 9.4 and 30-this is chronic. Elevated BUN creatinine 29 and 1.58-this is chronic. Glucose elevated 227. Troponin below detectable limits. COVID-19 negative. VBG pH was 7.43, CO2 was 48. BNP elevated 325 04/16/23 23:40 04/16/23 23:40 Labs: Lab Results 04/16/23 04/16/23 04/16/23 Range/Units 23:40 23:40 23:40 WBC 15.3 H (4.8-10.8) X10*3/uL RBC 3.72 L (4.60-5.80) X10*6/uL Hgb 9.4 L (14.0-18.0) g/dl Hct 30.3 L (42.0-52.0) % MCV 81.5 (80.0-98.0) fL MCH 25.3 L (27.0-33.0) pg MCHC 31.0 (31.0-36.0) g/dl RDW 17.8 H (11.0-16.0) % Plt Count 245 (160-400) X10*3/uL MPV 11.3 (9.4-12.4) fL Immature Gran % (Auto) 0.5 H (0.0-0.4) % Neut % (Auto) 73.8 H (45-73) % Lymph % (Auto) 15.8 L (20-40) % [place] % (Auto) 7.5 (2-11) % Eos % (Auto) 2.0 (0-4) % Baso % (Auto) 0.4 (0-2) % Lymph # (Auto) 2.4 (1.2-4.9) X10*3/uL [place] # (Auto) 1.2 (0.1-1.2) X10*3/uL Eos # (Auto) 0.3 (0.0-0.4) X10*3/uL Baso # (Auto) 0.1 (0.0-0.2) X10*3/uL Abs Immat Gran (auto) 0.07 H (0.00-0.03) X10*3/uL Absolute Neuts (auto) 11.3 H (2.0-8.3) x10*3/uL Absolute Nucleated RBC 0.000 (0.0-0.012) X10*3/uL Nucleated RBC % (auto) 0.0 (0.0-0.2) /100WBC VBG pH (7.32-7.43) VBG pCO2 mmHg VBG pO2 mmHg VBG HCO3 (22-26) mmol/L VBG O2 Saturation % VBG Base Excess mmol/L Sodium 139 (135-145) mmol/L Potassium 4.7 (3.3-5.1) mmol/L Chloride 109 H (96-108) mmol/L Carbon Dioxide 23 (22-29) mmol/L Anion Gap 12 (12-20) BUN 29 H (9-16) mg/dL Creatinine 1.58 H (0.5-1.4) mg/dL Estim Creat Clear Calc TNP Estimated GFR 47 Random Glucose 227 H (60-115) mg/dL Calcium 8.9 D (8.4-10.2) mg/dL Magnesium 1.9 (1.6-2.6) mg/dL Total Bilirubin 0.3 (0.0-1.0) mg/dL AST 23 (5-37) U/L ALT 29 (0-40) U/L Alkaline Phosphatase 120 H (39-117) U/L Troponin I High Sens < 2.7 (<3.5-35.0) ng/L B-Natriuretic Peptide (<100) pg/mL Total Protein 6.3 L (6.5-8.0) g/dL Albumin 3.3 L (3.5-5.0) g/dL COVID-19 (XANDER) (Negative) COVID-19 Clin Com 04/16/23 04/16/23 04/16/23 Range/Units 23:40 23:40 23:44 WBC (4.8-10.8) X10*3/uL RBC (4.60-5.80) X10*6/uL Hgb (14.0-18.0) g/dl Hct (42.0-52.0) % MCV (80.0-98.0) fL MCH (27.0-33.0) pg MCHC (31.0-36.0) g/dl RDW (11.0-16.0) % Plt Count (160-400) X10*3/uL MPV (9.4-12.4) fL Immature Gran % (Auto) (0.0-0.4) % Neut % (Auto) (45-73) % Lymph % (Auto) (20-40) % [place] % (Auto) (2-11) % Eos % (Auto) (0-4) % Baso % (Auto) (0-2) % Lymph # (Auto) (1.2-4.9) X10*3/uL [place] # (Auto) (0.1-1.2) X10*3/uL Eos # (Auto) (0.0-0.4) X10*3/uL Baso # (Auto) (0.0-0.2) X10*3/uL Abs Immat Gran (auto) (0.00-0.03) X10*3/uL Absolute Neuts (auto) (2.0-8.3) x10*3/uL Absolute Nucleated RBC (0.0-0.012) X10*3/uL Nucleated RBC % (auto) (0.0-0.2) /100WBC VBG pH 7.38 (7.32-7.43) VBG pCO2 47 mmHg VBG pO2 50 mmHg VBG HCO3 28 H (22-26) mmol/L VBG O2 Saturation 80.0 % VBG Base Excess 3.3 mmol/L Sodium (135-145) mmol/L Potassium (3.3-5.1) mmol/L Chloride (96-108) mmol/L Carbon Dioxide (22-29) mmol/L Anion Gap (12-20) BUN (9-16) mg/dL Creatinine (0.5-1.4) mg/dL Estim Creat Clear Calc Estimated GFR Random Glucose (60-115) mg/dL Calcium (8.4-10.2) mg/dL Magnesium (1.6-2.6) mg/dL Total Bilirubin (0.0-1.0) mg/dL AST (5-37) U/L ALT (0-40) U/L Alkaline Phosphatase (39-117) U/L Troponin I High Sens (<3.5-35.0) ng/L B-Natriuretic Peptide 325 H (<100) pg/mL Total Protein (6.5-8.0) g/dL Albumin (3.5-5.0) g/dL COVID-19 (XANDER) Negative (Negative) COVID-19 Clin Com See Note Independent Interpretation I performed an independent interpretation of an: EKG and Plain X-Ray Interpretation: My independent interpretation patient's 12 EKG done at 23:19 hours is as follows: Normal sinus rhythm with a rate of 84, normal PA interval, QRS dur ation QTC interval, no ST segment elevation, no ST segment depression, no PACs, no PVCs, no T-wave abnormalities. My independent interpretation patient's two view chest x-ray is as follows: Increased interstitial infiltrates new since 04/05/2023 consistent with congestive heart failure/pulmonary edema Radiology Impression Discussion of test interpretation with radiology: I have reviewed the radiologist's reading. Radiologist Impression: XR chest 2V IMPRESSION: New patchy airspace opacities with interstitial thickening in the mid and lower lungs. Findings are suspicious for an atypical infection, continued follow-up recommended. Dictated By:Viktoriya Burdick US venous duplex LE BI IMPRESSION: No DVT demonstrated in the bilateral lower extremities Dictated By:Luis Enrique Diaz MD Critical Care Time Critical Care Time Critical Care Time: Yes Total Critical Care Time: 60 Attestation: Critical Care: The patient was critically ill with a high probability of imminent or life threatening deterioration. I spent greater than 30 minutes of discontinuous time evaluating the patient,delivering critical care at the bedside, discussing and evaluating pertinent data with consultants. Critical care time does not include time spent performing separately billable procedures or teaching. Total time spent performing critical care was 60 minutes. Discharge Plan Discharge Clinical Impression: Congestive heart failure, Hypoxic Patient Disposition: Admitted As Inpatient
[2023-04-16 23:53] LABS: VBG Base Excess 3.3 mmol/L; VBG HCO3 28 mmol/L (22-26); VBG pCO2 47 mmHg; VBG pH 7.38 (7.32-7.43); VBG pO2 50 mmHg
[2023-04-16 23:57] LABS: Venous Blood Gas Refer to POC result
[2023-04-17] VITALS (14 sets, daily range): BP systolic 117–155; BP diastolic 62–79; PULSE 68–94; RESP 14–25; TEMP 36–37.1; O2SAT 88–100; BMI 24.0
--- NOTE | 2023-04-17 | PC.NURSE ---
pt c/o dyspnea, low O2Sat, edema bilat legs, wgt gain pt states wgt is 130s lbs per bedscale wgt is 155 lbs
[2023-04-17 00:03] LABS: Alanine Aminotransferase 29 U/L (0-40); Albumin Level 3.3 g/dL (3.5-5.0); Alkaline Phosphatase 120 U/L (39-117); Anion Gap 12 (12-20); Aspartate Amino Transferase 23 U/L (5-37); Bilirubin Total 0.3 mg/dL (0.0-1.0); Blood Urea Nitrogen 29 mg/dL (9-16); Calcium 8.9 mg/dL (8.4-10.2); Carbon Dioxide 23 mmol/L (22-29); Chloride 109 mmol/L (96-108); Estimated Glomerular Filt Rate 47; Glucose Random 227 mg/dL (60-115); Magnesium 1.9 mg/dL (1.6-2.6); Potassium 4.7 mmol/L (3.3-5.1); Sodium 139 mmol/L (135-145); Total Protein 6.3 g/dL (6.5-8.0)
[2023-04-17 00:04] LABS: COVID-19 Test Negative (Negative); IDNOW Serial# 6674DD1D
--- NOTE | 2023-04-17 00:09 | PC.NURSE ---
Addendum entered by Neha Duong 04/17/23 00:09: O2Sat* Original Note: provider aware of )2Sat of 88% while on NC per provider switch to oxymask
--- NOTE | 2023-04-17 00:12 | PC.NURSE ---
called RT to assess pt's O2Sat and address low O2Sat oxymask currently at 11L pt satting at 88%
[2023-04-17 00:14] LABS: Troponin-I High Sensitivity < 2.7 ng/L (<3.5-35.0)
[2023-04-17 00:29] LABS: B Type Natriuretic Peptide 325 pg/mL (<100)
[2023-04-17] MEDS: Aspirin 81 MG TAB.CHEW 162 MG PO (00:35)
[2023-04-17] MEDS: Furosemide 100 MG/10 ML VIAL 80 MG IVPUSH ×2 (01:00→04:28)
--- NOTE | 2023-04-17 04:39 | PC.NURSE ---
rory labs for trop sent to lab via tube system label affixed to specimen container verified pt name/ with pt
[2023-04-17 05:01] LABS: Troponin-I High Sensitivity < 2.7 ng/L (<3.5-35.0)
--- NOTE | 2023-04-17 05:49 | P.HPHOSP_ITS ---
History of Present Illness Date of Service: 04/17/23 Chief Complaint: shortness of breath 39-year-old male with past medical history of diabetes, COPD, HFpEF, CKD stage I, depression, HLD, HTN, YARELIS on CPAP, PAD presents the hospital with complaints of shortness of breath. Patient reports he has chronic shortness of breath but worsened yesterday. He had difficulty sleeping and lying flat, he also has a mild cough that has not worsened, no increased sputum production. Reports swelling in his legs for the past 3-4 days. He denies any fever, no chills, reports compliance with his Lasix, no recent change to his medications, no increased salt intake. No fever or chills, no abdominal pain nausea vomitin g, no diarrhea constipation, and no lower extremity edema. on arrival paramedics patient noted to be 74% on room air. on arrival to the ED patient was hypoxic and in respiratory distress. Was placed on BiPAP with improvement of his symptoms. Labs are significant for WBC count of 15.3 with chronic leukocytosis, BNP of 300 and 25 which is higher than his usual, troponin negative x2, creatinine of 1.58 which is around his most recent baseline but higher than usual, Chest x-ray shows new patchy airspace opacities with interstitial thickening in the mid and lower lungs, suspected for atypical infection? Patient given 80 mg x 2 of IV Lasix with significant improvement in his symptoms and urine output and will be admitted for further management Review of Systems Review of Systems: Yes all other systems are reviewed and are negative [facility], [facility] Medical History Acute on chronic anemia Acute on chronic diastolic (congestive) heart failure Acute respiratory failure KELVIN (acute kidney injury) Anxiety Asthma CHF exacerbation Chronic heart failure with preserved ejection fraction (HFpEF) CKD (chronic kidney disease) stage 1, GFR 90 ml/min or greater Congestive heart failure Depression Diabetes HLD (hyperlipidemia) HTN (hypertension) Hypercholesteremia Hyperglycemia due to type 2 diabetes mellitus Hypoxia YARELIS (obstructive sleep apnea) YARELIS (obstructive sleep apnea) PAD (peripheral artery disease) Uncontrolled hypertension Family History Father Alzheimer disease CAD (coronary artery disease) Surgical History S/P angiogram of extremity Social History Household Members: Family Housing: Apartment Do you presently have visiting nurse or other home services: No Alcohol intake: current Alcohol intake frequency: holidays/special occasions only Alcohol type: beer Patient Tobacco Use Status: Current everyday Tobacco user Tobacco use type: Cigarette Cigarettes Per Day: 10 Years Smoked: >30 Smoked in Last 30 Days: Yes e-Cigarette/Vaping Use: Never Used Second Hand Smoke Exposure: No Use of substances other than those prescribed or required for medical reasons: No Substance Use Type: Marijuana Advance Directives: Yes Advance Directives on File: Yes Advance Directives Date on File: 06/21/21 service: No Current occupational status: disabled Meds Allergies Allergy/AdvReac Type Severity Reaction Status Date / Time dulaglutide [From Trulicity] Allergy Unknown Verified 04/05/23 16:22 metformin [METFORMIN] AdvReac Mild DIARRHEA, Verified 04/05/23 16:22 nausea and vomiting Home Medications Medication Instructions Recorded Confirmed Last Taken Type albuterol sulfate 90 mcg/actuation 2 puff inhalation Q6H PRN 08/01/22 12/22/22 Unknown History aerosol inhaler Shortness Of Breath Or Wheezing escitalopram oxalate 10 mg tablet 10 mg PO DAILY 08/01/22 12/22/22 12/21/22 History insulin lispro 100 unit/mL See Rx Instructions .Route .COMPLEX 08/01/22 12/22/22 12/22/22 History subcutaneous solution trazodone 50 mg tablet 50 mg PO BEDTIME 08/01/22 12/22/22 12/21/22 History umeclidinium 62.5 mcg-vilanterol 1 inh inhalation DAILY 09/07/22 12/22/22 12/21/22 History 25 mcg/actuation powdr for inhalation (Anoro Ellipta) aspirin 81 mg tablet,delayed 81 mg PO DAILY 10/06/22 12/22/22 12/21/22 History release atorvastatin 40 mg tablet 40 mg PO DAILY 10/06/22 12/22/22 12/21/22 History gabapentin 300 mg capsule 300 mg PO TID 10/06/22 12/22/22 12/21/22 History metoprolol succinate 100 mg 100 mg PO DAILY 10/06/22 12/22/22 12/21/22 History tablet,extended release 24 hr omeprazole 40 mg capsule,delayed 40 mg PO DAILY@0630 10/06/22 12/22/22 12/21/22 History release ipratropium 0.5 mg-albuterol 3 mg 3 ml inhalation Q8H PRN Shortness 11/03/22 12/22/22 Unknown History (2.5 mg base)/3 mL nebulization Of Breath Or Wheezing soln nicotine (polacrilex) 2 mg gum 2 mg buccal Q1H PRN Nicotine 11/03/22 12/22/22 Unknown History Cravings nicotine 21 mg/24 hr daily 21 mg transdermal DAILY PRN 11/03/22 12/22/22 Unknown History transdermal patch Nicotine Cravings ferrous sulfate 324 mg (65 mg 1 tab PO DAILY 12/22/22 12/22/22 12/21/22 History iron) tablet,delayed release Physical Exam Vital Signs and Narrative: Vital Signs: Last Vital Signs Temp 98.8 F 04/17/23 00:00 Pulse 75 04/17/23 04:33 Resp 18 04/17/23 04:33 BP 149/75 H 04/17/23 04:33 Pulse Ox 98 04/17/23 04:33 O2 Del Method BiPAP 04/17/23 04:33 O2 Flow Rate 8 04/17/23 04:33 Oxygen Flow Rate 5 04/16/23 21:51 BMI result Body Mass Index 25.9 Const: General: cooperative and no acute distress Orientation/consciousness: patient oriented x3 Eyes: General: appearance normal, both eyes and all related structures Resp: Other: crackles bilaterally Effort & Inspection: normal respiratory effort Cardio: Rate: regular rate Rhythm: regular rhythm GI: Palpation (GI): Soft to palpation Auscultation: normal bowel sounds Skin: General skin exam: no rashes or lesions noted Neuro: General: patient oriented x3 Cognition (Neuro): normal cognition Extrem: Other: trace pitting edema General: Yes normal to inspection Results Labs 04/16/23 23:40 04/16/23 23:40 Labs: Laboratory Results - last 24 hr 04/16/23 04/16/23 04/16/23 23:40 23:40 23:40 MCV 81.5 MCH 25.3 L MCHC 31.0 RDW 17.8 H Plt Count 245 MPV 11.3 Immature Gran % (Auto) 0.5 H Neut % (Auto) 73.8 H Lymph % (Auto) 15.8 L Bowman % (Auto) 7.5 Eos % (Auto) 2.0 Baso % (Auto) 0.4 Lymph # (Auto) 2.4 Bowman # (Auto) 1.2 Eos # (Auto) 0.3 Baso # (Auto) 0.1 Abs Immat Gran (auto) 0.07 H Absolute Neuts (auto) 11.3 H Absolute Nucleated RBC 0.000 Nucleated RBC % (auto) 0.0 VBG pH VBG pCO2 VBG pO2 VBG HCO3 VBG O2 Saturation VBG Base Excess Anion Gap 12 Estim Creat Clear Calc TNP Estimated GFR 47 Random Glucose 227 H Calcium 8.9 D Magnesium 1.9 Total Bilirubin 0.3 AST 23 ALT 29 Alkaline Phosphatase 120 H Troponin I High Sens < 2.7 B-Natriuretic Peptide Total Protein 6.3 L Albumin 3.3 L COVID-19 (XANDER) COVID-19 Identified Com 04/16/23 04/16/23 04/16/23 23:40 23:40 23:44 MCV MCH MCHC RDW Plt Count MPV Immature Gran % (Auto) Neut % (Auto) Lymph % (Auto) Bowman % (Auto) Eos % (Auto) Baso % (Auto) Lymph # (Auto) Bowman # (Auto) Eos # (Auto) Baso # (Auto) Abs Immat Gran (auto) Absolute Neuts (auto) Absolute Nucleated RBC Nucleated RBC % (auto) VBG pH 7.38 VBG pCO2 47 VBG pO2 50 VBG HCO3 28 H VBG O2 Saturation 80.0 VBG Base Excess 3.3 Anion Gap Estim Creat Clear Calc Estimated GFR Random Glucose Calcium Magnesium Total Bilirubin AST ALT Alkaline Phosphatase Troponin I High Sens B-Natriuretic Peptide 325 H Total Protein Albumin COVID-19 (XANDER) Negative COVID-19 Identified Com See Note 04/17/23 04:36 MCV MCH MCHC RDW Plt Count MPV Immature Gran % (Auto) Neut % (Auto) Lymph % (Auto) Bowman % (Auto) Eos % (Auto) Baso % (Auto) Lymph # (Auto) Bowman # (Auto) Eos # (Auto) Baso # (Auto) Abs Immat Gran (auto) Absolute Neuts (auto) Absolute Nucleated RBC Nucleated RBC % (auto) VBG pH VBG pCO2 VBG pO2 VBG HCO3 VBG O2 Saturation VBG Base Excess Anion Gap Estim Creat Clear Calc Estimated GFR Random Glucose Calcium Magnesium Total Bilirubin AST ALT Alkaline Phosphatase Troponin I High Sens < 2.7 B-Natriuretic Peptide Total Protein Albumin COVID-19 (XANDER) COVID-19 Clin Com Imaging Radiologist's Impressions: Impressions Chest X-Ray 04/16/23 23:05 IMPRESSION: New patchy airspace opacities with interstitial thickening in the mid and lower lungs. Findings are suspicious for an atypical infection, continued follow-up recommended. Venous Duplex 04/17/23 01:10 IMPRESSION: No DVT demonstrated in the bilateral lower extremities Assessment and Plan (1) Acute on chronic heart failure with preserved ejection fraction (HFpEF): Status: Acute (2) Acute and chronic respiratory failure with hypoxia: Status: Acute (3) Acute on chronic kidney failure: Status: Acute Plan 79-year-old male with past medical history of CHF, COPD, diabetes, hypertension, presents the hospital with complaints of shortness of breath, orthopnea and PND as well as lower extremity edema # acute hypoxic respiratory failure - secondary to CHF exacerbation, pneumonia less likely as patient has no increased cough afebrile, and no increased sputum production - continue O2 as required - CPAP at bedtime - will obtain procalcitonin - monitor oxygen requirement, titrate oxygen office tolerated - will hold off on starting antibiotics at this time # acute CHF exacerbation - has history of CHF with preserved ejection fraction - will treat with Lasix IV b.i.d., strict I&O, low-sodium diet, daily weight - cardiology consulted # acute on chronic kidney failure - likely prerenal secondary to heart failure - patient started on Lasix - monitor BMP # leukocytosis - he has chronic leukocytosis - he has no increased cough, increased sputum production, afebrile - imaging although suggestive of atypical infection likely secondary to edema - will add procalcitonin - at this time will hold off starting antibiotics, follow CBC - follow cultures # diabetes - continue home insulin - low-dose sliding scale insulin - diabetic diet # hypertension - stable - continue anterior answers # history of COPD - no exacerbation - continue home inhalers DVT prophylaxis: Lovenox Given patient's need for IV a Lasix in the setting of hypoxia requiring O2 support patient will require minimum 2 nights inpatient hospital stay for further management and monitoring Time Spent With Patient Time: Total time managing care of this patient today ____ minutes. Quality Stroke Does the patient have a stroke diagnosis?: No VTE Prior VTE?: No VTE Risk Level:: Medical - moderate - high VTE Device Contraindication: Treatment Not Indicated VTE Drug Contraindication: N/A - Med Ordered
--- NOTE | 2023-04-17 06:14 | PC.NURSE ---
med rec completed with pt
--- NOTE | 2023-04-17 06:15 | PC.NURSE ---
per hospitalist apply [place] cath pt refused [place] cath, states he prefers to use urinal when necessary
[2023-04-17 06:17] LABS: Alanine Aminotransferase 28 U/L (0-40); Albumin Level 3.5 g/dL (3.5-5.0); Alkaline Phosphatase 119 U/L (39-117); Anion Gap 14 (12-20); Aspartate Amino Transferase 20 U/L (5-37); Bilirubin Total 0.3 mg/dL (0.0-1.0); Blood Urea Nitrogen 30 mg/dL (9-16); Calcium 9.4 mg/dL (8.4-10.2); Carbon Dioxide 25 mmol/L (22-29); Chloride 107 mmol/L (96-108); Estimated Glomerular Filt Rate 47; Glucose Random 215 mg/dL (60-115); Potassium 4.8 mmol/L (3.3-5.1); Sodium 141 mmol/L (135-145); Total Protein 6.7 g/dL (6.5-8.0)
[2023-04-17 06:33] LABS: Procalcitonin 0.03 ng/mL
--- NOTE | 2023-04-17 07:06 | PC.NURSE ---
N2N report given to CARLITOS Craft
--- NOTE | 2023-04-17 07:17 | PC.NURSE ---
pt resting in bed comfortably aox3 speaking in full clear sentences. cpap in place on 30% o2 pt states he uses this at home to sleep. pt disconnected to amb to the bathroom. aware of plan of care for admission and denied having any questions.
[2023-04-17] MEDS: Enoxaparin Sodium 40 MG/0.4 ML SYRINGE SUBCUT (07:25)
--- NOTE | 2023-04-17 07:31 | PHA.MEDREC ---
Pharmacy Consult ? Medication Reconciliation Pharmacy has completed the medication reconciliation. Completed by RN reviewed by pharmacy and adjusted. Patient has a list of medications from a previous discharge that is also outdated/most likely not completed since it does not have medications filled within last year Jarek
--- NOTE | 2023-04-17 08:34 | PC.NURSE ---
attempt to give report at 0750 and 0833. no answer yet. will attempt to call rn.
--- NOTE | 2023-04-17 08:39 | PC.NURSE ---
report given to lupe ye
[2023-04-17] MEDS: Escitalopram Oxalate 10 MG TABLET PO (09:48)
[2023-04-17] MEDS: amLODIPine Besylate 10 MG TABLET PO (09:48)
[2023-04-17] MEDS: Metoprolol Succinate ER 100 MG TAB.ER.24H PO (09:48)
[2023-04-17] MEDS: Furosemide 40 MG/4 ML VIAL IVPUSH ×2 (09:48→17:49)
[2023-04-17] MEDS: Gabapentin 300 MG CAPSULE PO ×3 (09:48→21:17)
[2023-04-17] MEDS: Atorvastatin Calcium 40 MG TABLET PO (09:48)
[2023-04-17] MEDS: Ferrous Sulfate 324 MG TABLET.DR PO (09:48)
[2023-04-17] MEDS: hydrALAZINE HCl 50 MG TABLET PO ×3 (09:48→21:17)
[2023-04-17] MEDS: Magnesium Oxide 400 MG TABLET PO ×2 (09:48→17:49)
[2023-04-17] MEDS: Aspirin Enteric Coated 81 MG TABLET.DR PO (09:48)
[2023-04-17] MEDS: Sucralfate 1 GM TABLET PO ×3 (12:39→21:17)
--- NOTE | 2023-04-17 13:23 | MHC.CLN ---
RE: CONSULT CARDIAC DIET CONSULT COMPLETED SEE TEACHING RECORD
[2023-04-17] MEDS: 0.9 % Sodium Chloride Flush 3 ML SYRINGE IVFLUSH ×2 (17:49→21:18)
[2023-04-17] MEDS: traZODone HCL 50 MG TABLET PO (21:18)
[2023-04-18 03:12] VITALS: BP 142/67; PULSE 63; RESP 16; TEMP 36.3; O2SAT 93
[2023-04-18 06:14] LABS: Hematocrit 32.7 % (42.0-52.0); Hemoglobin 10.2 g/dl (14.0-18.0); Mean Corpuscular HGB Conc 31.2 g/dl (31.0-36.0); Mean Corpuscular Hemoglobin 25.4 pg (27.0-33.0); Mean Corpuscular Volume 81.5 fL (80.0-98.0); Mean Platelet Volume 11.9 fL (9.4-12.4); Platelet Count 252 X10*3/uL (160-400); Red Blood Count 4.01 X10*6/uL (4.60-5.80); Red Cell Distribution Width 17.3 % (11.0-16.0); White Blood Count 11.7 X10*3/uL (4.8-10.8)
[2023-04-18 06:29] LABS: Anion Gap 13 (12-20); Blood Urea Nitrogen 32 mg/dL (9-16); Calcium 9.6 mg/dL (8.4-10.2); Carbon Dioxide 27 mmol/L (22-29); Chloride 104 mmol/L (96-108); Creatinine Clr Calc Pharmacy 49.4; Estimated Glomerular Filt Rate 47; Glucose Random 348 mg/dL (60-115); Potassium 4.6 mmol/L (3.3-5.1); Sodium 139 mmol/L (135-145)
[2023-04-18 06:34] LABS: B Type Natriuretic Peptide 140 pg/mL (<100)
[2023-04-18] MEDS: Sucralfate 1 GM TABLET PO (06:36)
[2023-04-18] MEDS: Enoxaparin Sodium 40 MG/0.4 ML SYRINGE SUBCUT (06:36)
[2023-04-18] MEDS: Omeprazole 40 MG CAPSULE.DR PO (06:36)
[2023-04-18 07:16] VITALS: BP 125/73; PULSE 71; RESP 20; TEMP 36.8; O2SAT 94
--- NOTE | 2023-04-18 08:35 | MHC.CM.PN ---
CM met with Patient at bedside. Patient lives in an apartment with his twin Brother, Adult Daughter and 3 year old Grandson and he has a home CPAP that is supplied by [facility]. Home/self care is the goal and CM has initiated and will follow for dc planning. Patient is miranda alexander and his PCP is Dr. Zari Henry.
[2023-04-18] MEDS: Aspirin Enteric Coated 81 MG TABLET.DR PO (09:15)
[2023-04-18] MEDS: amLODIPine Besylate 10 MG TABLET PO (09:15)
[2023-04-18] MEDS: hydrALAZINE HCl 50 MG TABLET PO (09:15)
[2023-04-18] MEDS: Gabapentin 300 MG CAPSULE PO (09:15)
[2023-04-18] MEDS: Escitalopram Oxalate 10 MG TABLET PO (09:15)
[2023-04-18] MEDS: Atorvastatin Calcium 40 MG TABLET PO (09:15)
[2023-04-18] MEDS: Metoprolol Succinate ER 100 MG TAB.ER.24H PO (09:15)
[2023-04-18] MEDS: Magnesium Oxide 400 MG TABLET PO (09:15)
[2023-04-18] MEDS: Ferrous Sulfate 324 MG TABLET.DR PO (09:15)
[2023-04-18] MEDS: 0.9 % Sodium Chloride Flush 3 ML SYRINGE IVFLUSH (09:16)
[2023-04-18] MEDS: Furosemide 40 MG/4 ML VIAL IVPUSH (09:17)
--- NOTE | 2023-04-18 11:04 | P.DS_ITS ---
DS: Providers Provider Date of Service: 04/18/23 Date of admission: 04/17/23 05:45 Primary care physician: Zari Henry MD Consults: 04/17/23 05:43 Consult to Cardiology Routine Consulting Provider: [facility] [place] [facility] Reason for consultation: chf Has provider been notified: No DS: Diagnosis Discharge Diagnosis (1) Acute on chronic heart failure with preserved ejection fraction (HFpEF): Status: Acute (2) Acute and chronic respiratory failure with hypoxia: Status: Acute DS: Summary Hospital Course Hospital Course: Admission note HPI 39-year-old male with past medical history of diabetes, COPD, ? HFpEF, CKD stage I, depression, HLD, HTN,? YARELIS on CPAP, PAD presents the hospital with complaints of shortness of breath.? Patient reports he has chronic shortness of breath but worsened yesterday.? He had difficulty sleeping and lying flat, he also has a mild cough that has not worsened, no increased sputum production.? Reports swelling in his legs for the past 3-4 days.? He denies any fever, no chills, reports compliance with his Lasix, no recent change to his medications, no increased salt intake.? No fever or chills, no abdominal pain nausea vomiting, no diarrhea constipation, and no lower extremity edema.? on arrival paramedics patient noted to be 74% on room air.? on arrival to the ED patient was hypoxic and in respiratory distress.? Was placed on BiPAP with improvement of his symptoms. Labs are significant for WBC count of 15.3? with chronic leukocytosis, BNP of 300 and 25 which is higher than his usual, troponin negative x2, creatinine of 1.58 which is around his? most recent baseline but higher than usual, Chest x-ray shows new patchy airspace opacities with interstitial thickening in the mid and lower lungs, suspected for atypical infection? Patient given 80 mg x 2 of IV Lasix with significant improvement in his symptoms and urine output and will be admitted for further management Hospital course The patient was admitted for treatment of acute hypoxic respiratory failure secondary to acute heart failure exacerbation with elevated BNP and evidence of edema on CXR. responded well to treatment with IV lasix as he was weaned down to room air and was able to ambulate with no reported dyspnea. Kidney function stable with no acute worsening but his baseline went up. leukocytosis likely reactive with no evidence of infection and negative Procalcitonin. To follow up with cardiology next week as outpatient. Advised to use the CPAP all the time and monitor weight and fluid intake. evaluated by e tailer as well. The patient made quick recovery and did not require to stay 2 overnights in the hospital. Increase lasix to 40 mg twice daily Monitor your fluids intake, target up to 2L daily Follow with PCP and Cardiology as scheduled Time Spent with Patient Time attestation: Total time managing care of this patient today ____ minutes. Discharge coordination time: Greater than 30 minutes Quality: Safe Use of Opioids Does Pt have an Active Cancer Diagnosis on the Problem List?: No Quality: Stroke Does the patient have a stroke diagnosis?: No Physical Exam Vital Signs: Vital Signs: Last Vital Signs Temp 98.2 F 04/18/23 07:16 Pulse 71 04/18/23 07:16 Resp 20 04/18/23 07:16 BP 125/73 04/18/23 07:16 Pulse Ox 94 04/18/23 07:16 O2 Del Method Room Air 04/18/23 07:16 O2 Flow Rate 3 04/17/23 15:22 Oxygen Flow Rate 5 04/16/23 21:51 BMI result Body Mass Index 24.0 Const: Other: Constitutional : Awake, interactive, not in distress Neck : Normal inspection, Supple Cardiovascular : RRR, no JVP, no lower extremity edema Respiratory : good bilateral air entry, no crackles, wheezes or rhonchi Gastrointestinal: soft, lax, Normal bowel sounds, Non tender Skin : Warm, Dry Neurological : Alert & oriented x3, No focal deficit DS: Data Data Completed and Pending Completed studies during hospitalization [Text1]: Procedures Assistance with Respiratory Ventilation, Less than 24 Consecutive Hours, Continuous Positive Airway Pressure (08/17/22) Detoxification Services for Substance Abuse Treatment (09/07/22) Excision of Esophagus, Via Natural or Artificial Opening Endoscopic, Diagnostic (09/07/22) Excision of Stomach, Pylorus, Via Natural or Artificial Opening Endoscopic, Diagnostic (09/07/22) Labs on day of discharge: Laboratory Results - last 24 hr 04/18/23 04/18/23 04/18/23 05:48 05:48 05:48 WBC 11.7 H RBC 4.01 L Hgb 10.2 L Hct 32.7 L MCV 81.5 MCH 25.4 L MCHC 31.2 RDW 17.3 H Plt Count 252 MPV 11.9 Absolute Nucleated RBC 0.000 Nucleated RBC % (auto) 0.0 Sodium 139 Potassium 4.6 Chloride 104 Carbon Dioxide 27 Anion Gap 13 BUN 32 H Creatinine 1.59 H Estim Creat Clear Calc 49.4 Estimated GFR 47 Random Glucose 348 H Calcium 9.6 B-Natriuretic Peptide 140 H Imaging Chest x-ray: Radiologist's impression: ITS Impressions Chest X-Ray 04/16/23 23:05 IMPRESSION: New patchy airspace opacities with interstitial thickening in the mid and lower lungs. Findings are suspicious for an atypical infection, continued follow-up recommended. Venous Duplex 04/17/23 01:10 IMPRESSION: No DVT demonstrated in the bilateral lower extremities Discharge Plan Discharge Anticipated Discharge Date/Time: 04/18/23 10:59 Patient Disposition: Home Health Service Discharge Diagnosis: Heart failure exacerbation Referrals: Zari Henry MD [Primary Care Provider] - 1 Week Discharge Medications: Continued hydralazine 50 mg Tablet 50 mg PO TID Qty: 90 0RF Protocol: Hold for SBP< HOLD for SBP < : 90 sucralfate 1 gram Tablet 1 g PO QIDACHS Qty: 120 0RF ipratropium-albuterol 0.5 mg-3 mg(2.5 mg base)/3 mL solution for nebulization 3 ml inhalation Q8H PRN (Reason: Shortness Of Breath Or Wheezing) nicotine (polacrilex) 2 mg gum 2 mg buccal Q1H PRN (Reason: Nicotine Cravings) Rx Instructions: do not exceed 24 pieces / day nicotine 21 mg/24 hr patch 24 hour 21 mg transdermal DAILY PRN (Reason: Nicotine Cravings) ferrous sulfate 324 mg (65 mg iron) tablet,delayed release (DR/EC) 1 tab PO DAILY trazodone 50 mg tablet 50 - 100 mg PO BEDTIME insulin lispro 100 unit/mL solution See Rx Instructions .ROUTE .COMPLEX Rx Instructions: insulin pump; use up to 100 units daily; OMNIPOD delivers 0.75 units per hour albuterol sulfate 90 mcg/actuation HFA aerosol inhaler 2 puff INHALATION Q6H PRN (Reason: Shortness Of Breath Or Wheezing) escitalopram oxalate 10 mg tablet 10 mg PO DAILY amlodipine 10 mg Tablet 10 mg PO DAILY 30 Days Qty: 30 0RF Protocol: Hold for SBP< HOLD for SBP < : 90 atorvastatin 40 mg tablet 40 mg PO DAILY gabapentin 300 mg capsule 300 mg PO TID Hold Instructions: Resume on 11/07/22. metoprolol succinate 100 mg tablet extended release 24 hr 100 mg PO DAILY omeprazole 40 mg capsule,delayed release(DR/EC) 40 mg PO DAILY@0630 magnesium oxide 400 mg (241.3 mg magnesium) Tablet 400 mg PO BIDPC Qty: 60 0RF lorazepam [Ativan] 1 mg tablet 1 mg PO BEDTIME PRN (Reason: sleep) Qty: 14 0RF insulin lispro 100 unit/mL insulin pen 7 - 15 unit subcut TID aspirin 81 mg tablet,delayed release (DR/EC) 81 mg PO DAILY Changed furosemide 40 mg tablet 40 mg PO BID@0630,1630 Qty: 120 0RF Discharge Orders: Discharge Order (Routine); Ordered 04/18/23 Ordered By: Suzi Wilcox Diet: Low salt diet Activity on Discharge: As tolerated Stand Alone Forms: Patient Portal Discharge page Other Ambulatory Orders: Basic Metabolic Panel (Routine) Timeframe: 5 Days Facility: [facility] - Location: Laboratory Ordered By: Suzi Wilcox Care Plan Goals: Read below Health Concerns: Read below Plan of Treatment: Read below Assessment: You were admitted for evidence of heart failure from fluid overload. responded well to IV lasix as you weaned down Oxygen supplement to room air. Increase lasix to 40 mg twice daily Monitor your fluids intake, target up to 2L daily Follow with PCP and Cardiology as scheduled
[2023-04-18 11:16] VITALS: BP 139/71; PULSE 68; RESP 20; TEMP 36.3; O2SAT 95
--- NOTE | 2023-04-18 11:37 | MHC.CM.PN ---
Patient has been medically cleared for dc to home today with new [facility]. A referral has been made to [facility], who has been made aware of today's dc. has approved [facility] SOC in 3-4 days.
--- NOTE | 2023-04-18 11:41 | P.F2F_ITS ---
Service Date Service Date: 04/18/23 Encounter Date of encounter: 04/18/23 Reasons for Services Signs and symptoms assessed: recurrent CHF exacerbations Reason for senior living: medication treatment and teach disease management Homebound: Leaving the home is medically contraindicated at this time without the asist of a device and/or another person due th the listed conditions above and below. Reason homebound: other Homebound supporting statement: Heart failure Certification: Based on the above findings, I certify that this patient is confined to the home and needs intermittent senior living care, physical therapy and/or speech therapy, or continues to need occupational therapy. The patient is under my care, and I have initiated the establishment of the plan of care. The patient will be followed by a physician who will periodically review the plan of care. Time Spent With Patient Time: Total time managing care of this patient today ____ minutes.
--- NOTE | 2023-04-18 12:25 | MHC.CM.PN ---
Patient will dc to home today via [facility] Shuttle at 1PM.
== END 2023-04-18 13:00 | disposition home health service (06) | DRG 194 ==
LOC: HO.ED 04-17 04:26 → HO.EDOVER 04-17 05:59 → HO.IMC 04-17 07:04
PROVIDERS: Physician Assistant Medical; Admitting Provider Internal Medicine; Emergency Provider Emergency Medicine Emergency Medical Services; PCP Internal Medicine; Visit Provider Student in an Organized Health Care Education/Training Program
DX: I13.0 Hypertensive heart and chronic kidney disease with heart failure and stage 1 through stage 4 chronic kidney disease, or unspecified chronic kidney disease (principal); J96.21 Acute and chronic respiratory failure with hypoxia; N17.9 Acute kidney failure, unspecified; E11.51 Type 2 diabetes mellitus with diabetic peripheral angiopathy without gangrene; E11.22 Type 2 diabetes mellitus with diabetic chronic kidney disease; N18.1 Chronic kidney disease, stage 1; I50.33 Acute on chronic diastolic (congestive) heart failure; J44.9 Chronic obstructive pulmonary disease, unspecified; G47.33 Obstructive sleep apnea (adult) (pediatric); Z20.822 Contact with and (suspected) exposure to COVID-19; Z79.4 Long term (current) use of insulin; Z79.82 Long term (current) use of aspirin; Z79.899 Other long term (current) drug therapy
CPT/HCPCS: 36415; 71046; 80048; 80053; 82803; 83735; 83880; 84145; 84484; 85025; 85027; 87635; 93005; 93970; 99285; J1650; J1940

== ENCOUNTER 2023-05-08 13:34 | Outpatient (AMB) | payer OTHER, SELFPAY ==
--- NOTE | 2023-05-08 13:48 | MHC.OFFVIS ---
Intake Vital Signs 05/08/23 13:49 Height 5 ft 5 in Weight 138 lb 14.259 oz BMI 23.1 BP 150/90 H Blood Pressure Location Lt brachial Position Sitting Pulse 65 Intake Visit Reasons: 3 WKS s/p c Intake Note: 3 weeks s/p [facility] Bacon Slicer Required: No Allergies dulaglutide [[facility] Allergy (Verified 05/08/23 13:59) Unknown metformin [METFORMIN] Adverse Reaction (Mild, Verified 05/08/23 13:59) DIARRHEA, nausea and vomiting Medication List - Last Reconciled 05/08/23 by Alissa Wiggins, HOOD FITTER-C albuterol sulfate 90 mcg/actuation 2 puffs inhalation Q6H PRN amlodipine 10 mg See Protocol PO DAILY 30 days aspirin 81 mg PO DAILY atorvastatin 40 mg PO DAILY escitalopram oxalate 10 mg PO DAILY ferrous sulfate 1 tab PO DAILY furosemide 40 mg PO BID@0630,1630 gabapentin 300 mg PO TID hydralazine 50 mg See Protocol PO TID insulin lispro insulin pump; use up to 100 units daily; OMNIPOD delivers 0.75 units per hour insulin lispro 7 - 15 units subcut TID ipratropium-albuterol 0.5 mg-3 mg(2.5 mg base)/3 mL 3 mL inhalation Q8H PRN lorazepam (Ativan) 1 mg PO BEDTIME PRN magnesium oxide 400 mg PO BIDPC metoprolol succinate ER 100 mg PO DAILY omeprazole 40 mg PO DAILY@0630 sucralfate 1 g PO QIDACHS trazodone 50 - 100 mg PO BEDTIME HPI 3 WKS s/p [facility] HPI Details Ciara is a 47-year-old male with past medical history of diabetes, hyperlipidemia, hypertension, obstructive sleep apnea with CPAP use, COPD, alcohol abuse,? heart failure with preserved EF who was admitted 2 times to in March with shortness of breath, leg edema and treated for acute on chronic diastolic heart failure. Following his last admission he was discharged with Lasix 40 mg b.i.d. Today he reports that he has been doing well since his hospital discharge on 04/18. He has some chronic mild shortness of breath which he relates to COPD however no acute shortness of breath and leg swelling like at the time of admission. He reports compliance with all his medications. No chest discomfort at rest or with activity. No heart palpitations, dizziness, presyncope, syncope, falls. He sleeps with head of the bed mildly elevated, intermittent cough present, no edema. [facility] Medical History Acute on chronic anemia Acute on chronic diastolic (congestive) heart failure Acute respiratory failure KELVIN (acute kidney injury) Anxiety Asthma CHF exacerbation Chronic heart failure with preserved ejection fraction (HFpEF) CKD (chronic kidney disease) stage 1, GFR 90 ml/min or greater Congestive heart failure Congestive heart failure Depression Diabetes HLD (hyperlipidemia) HTN (hypertension) Hypercholesteremia Hyperglycemia due to type 2 diabetes mellitus Hypoxia YARELIS (obstructive sleep apnea) YARELIS (obstructive sleep apnea) PAD (peripheral artery disease) Uncontrolled hypertension Surgical History S/P angiogram of extremity Family History Father Alzheimer disease CAD (coronary artery disease) Social History Household Members: Family Housing: House Do you presently have visiting nurse or other home services: No Unable to assess alcohol history related to: Unknown Alcohol intake: current Alcohol intake frequency: holidays/special occasions only Alcohol type: beer Patient Tobacco Use Status: Never used Tobacco Tobacco use type: Cigarette Cigarettes Per Day: 10 Years Smoked: >30 e-Cigarette/Vaping Use: Never Used Second Hand Smoke Exposure: No Advance Directives Date on File: 06/21/21 service: No Current occupational status: disabled Review of Systems Const All systems reviewed & are unremarkable except as noted in HPI and below ENT Reports dizziness Card Denies chest pain, Denies chest pain at rest, Denies chest pain with activity, Denies rapid heart rate, Denies pedal edema, Denies edema, Denies leg edema, Denies lightheadedness, Denies palpitations, Denies dyspnea, Denies dyspnea on exertion and Denies orthopnea Resp Denies cough, Denies dyspnea and Denies dyspnea on exertion GI Denies hematochezia and Denies change in stool character Musc Denies abnormal gait, Reports limited range of motion, Reports muscle cramps, Denies muscle weakness, Denies numbness, Denies radiating pain into limb, Denies stiffness and Denies tingling Neuro Denies abnormal gait, Reports dizziness, Denies numbness and Denies tingling Endo Denies palpitations Physical Exam Vital Signs: Last Vital Signs Pulse 65 05/08/23 13:49 BP 150/90 H 05/08/23 13:49 BMI result Body Mass Index 23.1 Const General: cooperative, healthy appearing, comfortable and no acute distress Orientation/consciousness: patient oriented x3 Neck Neck: Yes normal visual inspection Resp Effort & Inspection: normal respiratory effort Auscultation: clear to auscultation bilaterally, no crackles, no rales, no rhonchi and no wheezes Cardio Jugular venous distension: no JVD Rate: regular rate Rhythm: regular rhythm Heart sounds: S1 normal heart sound present, S2 normal heart sound present, no murmurs and no rubs Neuro General: patient oriented x3 Extrem General: Yes normal to inspection and No no pedal edema Psych Appearance: grossly normal Mental Status: mental status grossly normal Speech and movement: Normal speech and movement present Office Procedures EKG Details: Today, read by me, normal sinus rhythm, minimal voltage criteria for LVH, no acute ST and T-wave abnormalities, rate 65, QTC 418 millisecond [id number], Complete Assessment & Plan Assessment & Plan (1) Congestive heart failure: Code(s): I50.9 - Heart failure, unspecified Plan: History of heart failure with preserved EF. Recurrent admissions over the last year with Congestive heart failure and KELVIN issues. Two recent admissions March 2023 and diuretics increased, last discharge was sent home with Lasix 40 mg b.i.d. Last Echocardiogram in our system on 08/01/2022 showed EF is 60-65%, normal valves and normal RV. Most recent labs done on 04/18/2023 showed potassium 4.6 and creatinine 1.59 which is elevated for him. Today he reports some shortness of breath that he relates to COPD. No leg edema. On exam he does not appear fluid overloaded. He drinks alcohol routinely in informed how this can affect his heart. Signs and symptoms of heart failure reviewed with him. At present will continue on Lasix 40 mg b.i.d., hydralazine 50 mg t.i.d. metoprolol XL 100 mg daily. He was on lisinopril in the past however it has since been discontinued, likely related to his kidney function. Plan to review his medication management with his primary seasonal recruiter. Office visit follow-up in 3 months, sooner if needed. ED care if ever needed for symptoms. (2) KELVIN (acute kidney injury): Code(s): N17.9 - Acute kidney failure, unspecified Plan: Will need recheck of kidney function following planned upcoming medication adjustments (3) YARELIS (obstructive sleep apnea): Code(s): G47.33 - Obstructive sleep apnea (adult) (pediatric) (4) HTN (hypertension): Code(s): I10 - Essential (primary) hypertension Plan: Mild elevation today. Reviewing meds with seasonal recruiter as above (5) Hospital discharge follow-up: Code(s): Z09 - Encounter for follow-up examination after completed treatment for conditions other than malignant neoplasm Coding Level of Care Code Est Pt Level 4 (17177) Diagnoses Congestive heart failure I50.9 KELVIN (acute kidney injury) N17.9 YARELIS (obstructive sleep apnea) G47.33 HTN (hypertension) I10 Hospital discharge follow-up Z09 CPT Codes EKG - CPT: 57367-[id number], Complete ([id number]) Time Spent (min) 28 Comment Chart review, documentation, interview, assessment
[2023-05-08 13:49] VITALS: BP 150/90; PULSE 65; BMI 23.1
== END 2023-05-08 14:33 | disposition home or self-care (01) ==
PROVIDERS: PCP Internal Medicine; Visit Provider Nurse Practitioner Family
DX: I50.9 Heart failure, unspecified (principal)
CPT/HCPCS: 93010; 99214

== ENCOUNTER → 2023-05-08 13:34 | Outpatient (BNVA) | payer OTHER, SELFPAY | PROVIDERS: PCP Internal Medicine; Visit Provider Nurse Practitioner Family | DX: I11.0 Hypertensive heart disease with heart failure (principal); I50.33 Acute on chronic diastolic (congestive) heart failure; R06.02 Shortness of breath; E11.22 Type 2 diabetes mellitus with diabetic chronic kidney disease; E11.65 Type 2 diabetes mellitus with hyperglycemia; I13.0 Hypertensive heart and chronic kidney disease with heart failure and stage 1 through stage 4 chronic kidney disease, or unspecified chronic kidney disease; N18.1 Chronic kidney disease, stage 1; N17.9 Acute kidney failure, unspecified; G47.33 Obstructive sleep apnea (adult) (pediatric); Z87.891 Personal history of nicotine dependence; Z79.4 Long term (current) use of insulin | CPT/HCPCS: 93005; 99212 ==

== ENCOUNTER 2023-05-10 08:35 | Emergency (ER) | payer OTHER, SELFPAY ==
--- NOTE | ~2023-05-10 | XR_ITS ---
EXAMINATION: XR CHEST CLINICAL INFORMATION: Shortness of breath with crackles COMPARISON: 04/16/2023 TECHNIQUE: 2 views of the chest were obtained. FINDINGS: Compared with the prior study, there has been significant improvement in appearances with near resolution of the interstitial thickening and densely new patchy airspace opacities. There is some mild left midlung atelectasis/scarring remaining. Heart size normal. No pleural effusions. No evidence of CHF. XR/XR chest 2V IMPRESSION: Significant improvement in appearances since the prior study.
[2023-05-10 08:59] VITALS: BP 146/69; PULSE 69; RESP 20; TEMP 36.2; O2SAT 97; BMI 24.3
--- NOTE | 2023-05-10 09:21 | ECG_ITS ---
Test Reason : chf Blood Pressure : / mmHG Vent. Rate : 075 BPM Atrial Rate : 075 BPM P-R Int : 158 ms QRS Dur : 078 ms QT Int : 378 ms P-R-T Axes : 058 048 063 degrees QTc Int : 422 ms Normal sinus rhythm Normal ECG When compared with ECG of 16-APR-2023 23:19, No significant change was found Referred By: Holly Tijerina Electronically Signed By:INOCENCIO BERGMAN MD
--- NOTE | 2023-05-10 09:21 | ED.GENADULT ---
HPI - General Adult General Chief complaint: General Medical Stated complaint: SHF, SOB Time Seen by Provider: 05/10/23 09:21 Source: patient and old records reviewed Mode of arrival: ambulatory Limitations: no limitations History of Present Illness HPI narrative: 47 y/o male with history of COPD, HFpEF, PAD, HTN, DM, CKD, YARELIS on CPAP who presents to the ER for evaluation of SOB, weight gain and LE edema that started last night. He states in the last 24 hours he gained 6-7 lbs. He has been compliant with his lasix 40 mg BID. He took an extra dose because he noticed he started to get leg swelling. He states his breathing has been short with exertion and when laying flat. No chest pain. NO abdominal pain, N/V/D, fever or chills. MD complaint: SOB, weight gain and LE edema Onset (ago): day(s) (1) Location: face, chest, left, right and lower extremity Radiation: non-radiation Severity: moderate Quality: aching Pain Consistency: constant Relieving factors: rest Exacerbating factors: movement Associated symptoms: malaise, shortness of breath and weakness Treatments prior to arrival: other (po lasix) Related Data Home Medications Medication Instructions Recorded Confirmed albuterol sulfate 90 mcg/actuation 2 puff inhalation Q6H PRN 08/01/22 05/08/23 aerosol inhaler Shortness Of Breath Or Wheezing escitalopram oxalate 10 mg tablet 10 mg PO DAILY 08/01/22 05/08/23 insulin lispro 100 unit/mL See Rx Instructions .Route .COMPLEX 08/01/22 05/08/23 subcutaneous solution trazodone 50 mg tablet 50 - 100 mg PO BEDTIME 08/01/22 05/08/23 aspirin 81 mg tablet,delayed 81 mg PO DAILY 10/06/22 05/08/23 release atorvastatin 40 mg tablet 40 mg PO DAILY 10/06/22 05/08/23 gabapentin 300 mg capsule 300 mg PO TID 10/06/22 05/08/23 metoprolol succinate 100 mg 100 mg PO DAILY 10/06/22 05/08/23 tablet,extended release 24 hr omeprazole 40 mg capsule,delayed 40 mg PO DAILY@0630 10/06/22 05/08/23 release ipratropium 0.5 mg-albuterol 3 mg 3 ml inhalation Q8H PRN Shortness 11/03/22 05/08/23 (2.5 mg base)/3 mL nebulization Of Breath Or Wheezing soln ferrous sulfate 324 mg (65 mg 1 tab PO DAILY 12/22/22 05/08/23 iron) tablet,delayed release insulin lispro 100 unit/mL 7 - 15 unit subcut TID 04/17/23 05/08/23 subcutaneous pen Previous Rx's Medication Instructions Recorded amlodipine 10 mg tablet 10 mg PO DAILY 30 days #30 tabs 08/07/22 magnesium oxide 400 mg (241.3 mg 400 mg PO BIDPC #60 tabs 08/20/22 magnesium) tablet sucralfate 1 gram tablet 1 g PO QIDACHS #120 tabs 09/10/22 lorazepam 1 mg tablet (Ativan) 1 mg PO BEDTIME PRN sleep #14 tabs 02/27/23 furosemide 40 mg tablet 40 mg PO BID@0630,1630 #120 tabs 04/18/23 hydralazine 100 mg tablet 100 mg PO TID 30 days #90 tabs 05/09/23 Allergies Allergy/AdvReac Type Severity Reaction Status Date / Time dulaglutide [From [facility]] Allergy Unknown Verified 05/10/23 09:12 metformin [METFORMIN] AdvReac Mild DIARRHEA, Verified 05/10/23 09:12 nausea and vomiting Review of Systems Review of Systems: Yes all other systems are reviewed and are negative [facility] Past Medical History Medical History Acute on chronic anemia Acute on chronic diastolic (congestive) heart failure Acute respiratory failure KELVIN (acute kidney injury) Anxiety Asthma CHF exacerbation Chronic heart failure with preserved ejection fraction (HFpEF) CKD (chronic kidney disease) stage 1, GFR 90 ml/min or greater Congestive heart failure Congestive heart failure Depression Diabetes HLD (hyperlipidemia) HTN (hypertension) Hypercholesteremia Hyperglycemia due to type 2 diabetes mellitus Hypoxia YARELIS (obstructive sleep apnea) YARELIS (obstructive sleep apnea) PAD (peripheral artery disease) Uncontrolled hypertension Surgical History S/P angiogram of extremity Family History Family History Father Alzheimer disease CAD (coronary artery disease) Social History Social History Household Members: Family Housing: House Do you presently have visiting nurse or other home services: No Unable to assess alcohol history related to: Unknown Alcohol intake: current Alcohol intake frequency: holidays/special occasions only Alcohol type: beer Patient Tobacco Use Status: Never used Tobacco Tobacco use type: Cigarette Cigarettes Per Day: 10 Years Smoked: >30 e-Cigarette/Vaping Use: Never Used Second Hand Smoke Exposure: No Advance Directives: Yes Advance Directives on File: Yes Advance Directives Date on File: 06/21/21 service: No Current occupational status: disabled Physical Exam ED Vital Signs: Vital Signs - 24 hr 05/10/23 08:59 05/10/23 10:33 Temperature 97.2 F 97.9 F Pulse Rate 69 75 Respiratory Rate 20 16 Blood Pressure 146/69 H 155/67 H Pulse Oximetry 97 95 Oxygen Delivery Method Room Air Room Air BMI result Body Mass Index 24.3 Appearance: Alert. Oriented X3. No acute distress. Head: normocephalic, atraumatic. Eyes: Pupils equal, round and reactive to light. ENT: Pharynx normal. No tonsillar swelling or exudate. Neck: Normal inspection. Neck supple. CVS: Normal heart rate and rhythm. Pulses normal. Respiratory: No respiratory distress. Breath sounds with fine crackles at the bases only Abdomen: Soft and nontender. +BS x4 Skin: Skin warm and dry. Normal skin color. Normal skin turgor. No rashes. Extremities: 1+lower extremity edema, right slightly worse than left, no calf tenderness. . No joint swelling. Neuro/psych: Oriented X 3. No motor deficit. No sensory deficit. CN II-XII intact. Normal speech and cognition. Medical Decision Making Medical Decision Making MDM Narrative: 39-year-old male presents to the ER for evaluation of shortness of breath lower extremity edema along with weight gain for the last 24 hours. He has trace edema of the lower extremities, 1+ in the right. No hypoxia or JVD. He has fine crackles at the bases of his lungs. He is oxygenating well and is in no in respiratory distress. His lab workup today showed baseline CKD. His BNP is lower than normal. His chest x-ray is normal. He was ambulated around the emergency department and maintain saturations of 90% with no respiratory distress. At this time he is stable for discharge home. Will plan to give him an extra dose of Lasix for the next 2 days. Will have him elevate his legs and try compression stockings. 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 He is stable for discharge home Differential Diagnosis Differential Diagnoses: The differential diagnosis associated with the presentation includes acute CHF exacerbation, acute COPD exacerbation, PVD, deconditioning, fluid overload, less likely DVT Admission/Observation Consideration of admission/observation: Escalation of care including admission/observation considered Weight gain, shortness of breath in the setting of CHF, considered admission Lab Data MDM Lab Attestation statement: I reviewed the patient's lab results. Baseline CKD, stable anemia, hyperglycemia 05/10/23 09:34 05/10/23 09:34 Labs: Lab Results 05/10/23 05/10/23 05/10/23 Range/Units 09:34 09:34 09:34 WBC 11.6 H (4.8-10.8) X10*3/uL RBC 4.16 L (4.60-5.80) X10*6/uL Hgb 10.9 L (14.0-18.0) g/dl Hct 34.2 L (42.0-52.0) % MCV 82.2 (80.0-98.0) fL MCH 26.2 L (27.0-33.0) pg MCHC 31.9 (31.0-36.0) g/dl RDW 16.5 H (11.0-16.0) % Plt Count 238 (160-400) X10*3/uL MPV 10.7 (9.4-12.4) fL Immature Gran % (Auto) 0.4 (0.0-0.4) % Neut % (Auto) 73.6 H (45-73) % Lymph % (Auto) 14.6 L (20-40) % Island % (Auto) 8.9 (2-11) % Eos % (Auto) 1.9 (0-4) % Baso % (Auto) 0.6 (0-2) % Lymph # (Auto) 1.7 (1.2-4.9) X10*3/uL Island # (Auto) 1.0 (0.1-1.2) X10*3/uL Eos # (Auto) 0.2 (0.0-0.4) X10*3/uL Baso # (Auto) 0.1 (0.0-0.2) X10*3/uL Abs Immat Gran (auto) 0.05 H (0.00-0.03) X10*3/uL Absolute Neuts (auto) 8.5 H (2.0-8.3) x10*3/uL Absolute Nucleated RBC 0.000 (0.0-0.012) X10*3/uL Nucleated RBC % (auto) 0.0 (0.0-0.2) /100WBC Sodium 137 (135-145) mmol/L Potassium 4.3 (3.3-5.1) mmol/L Chloride 105 (96-108) mmol/L Carbon Dioxide 23 (22-29) mmol/L Anion Gap 13 (12-20) BUN 30 H (9-16) mg/dL Creatinine 1.43 H (0.5-1.4) mg/dL Estim Creat Clear Calc 54.9 Estimated GFR 53 Random Glucose 287 H (60-115) mg/dL Calcium 9.7 (8.4-10.2) mg/dL Magnesium 1.6 (1.6-2.6) mg/dL Total Bilirubin 0.2 (0.0-1.0) mg/dL Direct Bilirubin < 0.2 (0.0-0.5) mg/dL AST 27 (5-37) U/L ALT 34 (0-40) U/L Alkaline Phosphatase 107 (39-117) U/L Troponin I High Sens < 2.7 (<3.5-35.0) ng/L B-Natriuretic Peptide (<100) pg/mL Total Protein 6.5 (6.5-8.0) g/dL Albumin 3.7 (3.5-5.0) g/dL 05/10/23 Range/Units 09:34 WBC (4.8-10.8) X10*3/uL RBC (4.60-5.80) X10*6/uL Hgb (14.0-18.0) g/dl Hct (42.0-52.0) % MCV (80.0-98.0) fL MCH (27.0-33.0) pg MCHC (31.0-36.0) g/dl RDW (11.0-16.0) % Plt Count (160-400) X10*3/uL MPV (9.4-12.4) fL Immature Gran % (Auto) (0.0-0.4) % Neut % (Auto) (45-73) % Lymph % (Auto) (20-40) % Island % (Auto) (2-11) % Eos % (Auto) (0-4) % Baso % (Auto) (0-2) % Lymph # (Auto) (1.2-4.9) X10*3/uL Island # (Auto) (0.1-1.2) X10*3/uL Eos # (Auto) (0.0-0.4) X10*3/uL Baso # (Auto) (0.0-0.2) X10*3/uL Abs Immat Gran (auto) (0.00-0.03) X10*3/uL Absolute Neuts (auto) (2.0-8.3) x10*3/uL Absolute Nucleated RBC (0.0-0.012) X10*3/uL Nucleated RBC % (auto) (0.0-0.2) /100WBC Sodium (135-145) mmol/L Potassium (3.3-5.1) mmol/L Chloride (96-108) mmol/L Carbon Dioxide (22-29) mmol/L Anion Gap (12-20) BUN (9-16) mg/dL Creatinine (0.5-1.4) mg/dL Estim Creat Clear Calc Estimated GFR Random Glucose (60-115) mg/dL Calcium (8.4-10.2) mg/dL Magnesium (1.6-2.6) mg/dL Total Bilirubin (0.0-1.0) mg/dL Direct Bilirubin (0.0-0.5) mg/dL AST (5-37) U/L ALT (0-40) U/L Alkaline Phosphatase (39-117) U/L Troponin I High Sens (<3.5-35.0) ng/L B-Natriuretic Peptide 105 H (<100) pg/mL Total Protein (6.5-8.0) g/dL Albumin (3.5-5.0) g/dL Independent Interpretation I performed an independent interpretation of an: EKG and Plain X-Ray Interpretation: Chest x-ray reviewed, much improved from prior left mid lung atelectasis appreciated, no florid CHF. Agree with radiologist read EKG was normal sinus rhythm, ventricular rate 75 beats per minute, normal QTC, normal LA interval, no change from March 2023. No ST segment elevations or depressions. Radiology Impression Discussion of test interpretation with radiology: I have reviewed the radiologist's reading. Radiologist Impression: XR/XR chest 2V IMPRESSION: Significant improvement in appearances since the prior study. External Record Review External record reviewed: Office record, Outpatient record and Prior outpatient labs Tests considered The following testing was considered but not selected: Lower extremity Doppler was considered however it was just done a couple weeks ago and finding seem to be chronic. Prescription Management I considered prescription management with: Other (diuretics) Chronic Conditions Patient?s care impacted by: Diabetes, Hypertension and Other (CHF, CKD) Critical Care Time Critical Care Time Critical Care Time: No Discharge Plan Discharge Clinical Impression: Chronic diastolic CHF (congestive heart failure) Patient Disposition: Home, Self-Care Instructions: Heart Failure (DC), Heart Healthy Diet (DC) Additional Instructions: Your workup today was unremarkable. Recommend taking an extra dose of lasix for the next 2 days. Weigh yourself each morning. Elevate your legs whenever possible and try wearing compression stockings that go up to your knees. Stick to a low salt, heart healthy diet Follow up with your assembler fishing floats next week as scheduled. If you develop new or worsening symptoms call 911 or come back to the ER for further evaluation. Prescriptions: No Action hydralazine 100 mg tablet 100 mg PO TID 30 Days Qty: 90 5RF sucralfate 1 gram Tablet 1 g PO QIDACHS Qty: 120 0RF ipratropium-albuterol 0.5 mg-3 mg(2.5 mg base)/3 mL solution for nebulization 3 ml inhalation Q8H PRN (Reason: Shortness Of Breath Or Wheezing) ferrous sulfate 324 mg (65 mg iron) tablet,delayed release (DR/EC) 1 tab PO DAILY trazodone 50 mg tablet 50 - 100 mg PO BEDTIME insulin lispro 100 unit/mL solution See Rx Instructions .ROUTE .COMPLEX Rx Instructions: insulin pump; use up to 100 units daily; OMNIPOD delivers 0.75 units per hour albuterol sulfate 90 mcg/actuation HFA aerosol inhaler 2 puff INHALATION Q6H PRN (Reason: Shortness Of Breath Or Wheezing) escitalopram oxalate 10 mg tablet 10 mg PO DAILY amlodipine 10 mg Tablet 10 mg PO DAILY 30 Days Qty: 30 0RF Protocol: Hold for SBP< HOLD for SBP < : 90 atorvastatin 40 mg tablet 40 mg PO DAILY gabapentin 300 mg capsule 300 mg PO TID Hold Instructions: Resume on 11/07/22. metoprolol succinate 100 mg tablet extended release 24 hr 100 mg PO DAILY omeprazole 40 mg capsule,delayed release(DR/EC) 40 mg PO DAILY@0630 magnesium oxide 400 mg (241.3 mg magnesium) Tablet 400 mg PO BIDPC Qty: 60 0RF lorazepam [Ativan] 1 mg tablet 1 mg PO BEDTIME PRN (Reason: sleep) Qty: 14 0RF insulin lispro 100 unit/mL insulin pen 7 - 15 unit subcut TID furosemide 40 mg tablet 40 mg PO BID@0630,1630 Qty: 120 0RF aspirin 81 mg tablet,delayed release (DR/EC) 81 mg PO DAILY
[2023-05-10 09:39] LABS: MANUAL DIFF FLAG NO
--- NOTE | 2023-05-10 09:39 | PC.NURSE ---
pt resting in stretcher, VSS, pt resp equal and unlabored.
[2023-05-10 09:40] LABS: Basophils Absolute Auto 0.1 X10*3/uL (0.0-0.2); Basophils Percent Auto 0.6 % (0-2); Eosinophils Absolute Auto 0.2 X10*3/uL (0.0-0.4); Eosinophils Percent Auto 1.9 % (0-4); Hematocrit 34.2 % (42.0-52.0); Hemoglobin 10.9 g/dl (14.0-18.0); Imm Gran Abs Auto 0.05 X10*3/uL (0.00-0.03); Imm Gran Pct Auto 0.4 % (0.0-0.4); Lymphocytes Absolute Auto 1.7 X10*3/uL (1.2-4.9); Lymphocytes Percent Auto 14.6 % (20-40); Mean Corpuscular HGB Conc 31.9 g/dl (31.0-36.0); Mean Corpuscular Hemoglobin 26.2 pg (27.0-33.0); Mean Corpuscular Volume 82.2 fL (80.0-98.0); Mean Platelet Volume 10.7 fL (9.4-12.4); Monocytes Percent Auto 8.9 % (2-11); Neutrophils Absolute Auto 8.5 x10*3/uL (2.0-8.3); Neutrophils Percent Auto 73.6 % (45-73); Platelet Count 238 X10*3/uL (160-400); Red Blood Count 4.16 X10*6/uL (4.60-5.80); Red Cell Distribution Width 16.5 % (11.0-16.0); White Blood Count 11.6 X10*3/uL (4.8-10.8)
[2023-05-10 10:05] LABS: Alanine Aminotransferase 34 U/L (0-40); Albumin Level 3.7 g/dL (3.5-5.0); Alkaline Phosphatase 107 U/L (39-117); Anion Gap 13 (12-20); Aspartate Amino Transferase 27 U/L (5-37); Bilirubin Direct < 0.2 mg/dL (0.0-0.5); Bilirubin Total 0.2 mg/dL (0.0-1.0); Blood Urea Nitrogen 30 mg/dL (9-16); Calcium 9.7 mg/dL (8.4-10.2); Carbon Dioxide 23 mmol/L (22-29); Chloride 105 mmol/L (96-108); Creatinine Clr Calc Pharmacy 54.9; Estimated Glomerular Filt Rate 53; Glucose Random 287 mg/dL (60-115); Magnesium 1.6 mg/dL (1.6-2.6); Potassium 4.3 mmol/L (3.3-5.1); Sodium 137 mmol/L (135-145); Total Protein 6.5 g/dL (6.5-8.0)
[2023-05-10 10:09] LABS: B Type Natriuretic Peptide 105 pg/mL (<100)
[2023-05-10 10:27] LABS: Troponin-I High Sensitivity < 2.7 ng/L (<3.5-35.0)
[2023-05-10 10:33] VITALS: BP 155/67; PULSE 75; RESP 16; TEMP 36.6; O2SAT 95
== END 2023-05-10 11:16 | disposition home or self-care (01) ==
PROVIDERS: Physician Assistant; Emergency Provider Emergency Medicine; PCP Internal Medicine
DX: R06.02 Shortness of breath (principal); E11.22 Type 2 diabetes mellitus with diabetic chronic kidney disease; I13.0 Hypertensive heart and chronic kidney disease with heart failure and stage 1 through stage 4 chronic kidney disease, or unspecified chronic kidney disease; N18.1 Chronic kidney disease, stage 1; I50.32 Chronic diastolic (congestive) heart failure; E78.5 Hyperlipidemia, unspecified; Z87.891 Personal history of nicotine dependence; Z79.4 Long term (current) use of insulin; Z79.899 Other long term (current) drug therapy
CPT/HCPCS: 36415; 71046; 80048; 80076; 83735; 83880; 84484; 85025; 93005; 99283; 99284

== ENCOUNTER → 2023-05-10 09:21 | Outpatient (BNV) | payer OTHER, SELFPAY | PROVIDERS: Emergency Provider Emergency Medicine; PCP Internal Medicine; Visit Provider Internal Medicine Cardiovascular Disease | DX: I25.10 Atherosclerotic heart disease of native coronary artery without angina pectoris (principal) | CPT/HCPCS: 93010 ==

== ENCOUNTER 2023-06-25 18:47 | Inpatient (IN) | payer OTHER, SELFPAY ==
--- NOTE | ~2023-06-25 | XR_ITS ---
EXAMINATION: XR CHEST CLINICAL INFORMATION: Cough COMPARISON: None available. TECHNIQUE: Frontal view of the chest was obtained. FINDINGS: No significant abnormality is noted involving the heart, lungs, mediastinum, bony thorax or soft tissues. XR/XR chest 1V IMPRESSION: Unremarkable examination.
[2023-06-25 18:59] VITALS: BP 128/82; BP 159/76; PULSE 55; PULSE 57; RESP 18; TEMP 36.7; O2SAT 97; O2SAT 98; BMI 23.6
--- NOTE | 2023-06-25 19:10 | ED.GENADULT ---
HPI - General Adult General Chief complaint: General Medical Stated complaint: SOB WITH CP Time Seen by Provider: 06/25/23 19:04 Source: patient and EMS Mode of arrival: EMS Limitations: no limitations History of Present Illness HPI narrative: A 47-year-old male with past medical history of DM, COPD, HF P EF, CKD stage 3, depression, HLD, HTN, YARELIS on CPAP, HCP, smoker use supplemental oxygen 3 L at night time/PRN needed, presented for 3 days of generalized weakness, chills, coughing with clear phlegm, SOB, chest pain will need taking a deep breath. Patient is a cigarette smoker. Related Data Home Medications Medication Instructions Recorded Confirmed albuterol sulfate 90 mcg/actuation 2 puff inhalation Q6H PRN 08/01/22 05/08/23 aerosol inhaler Shortness Of Breath Or Wheezing escitalopram oxalate 10 mg tablet 10 mg PO DAILY 08/01/22 05/08/23 insulin lispro 100 unit/mL See Rx Instructions .Route .COMPLEX 08/01/22 05/08/23 subcutaneous solution trazodone 50 mg tablet 50 - 100 mg PO BEDTIME 08/01/22 05/08/23 aspirin 81 mg tablet,delayed 81 mg PO DAILY 10/06/22 05/08/23 release atorvastatin 40 mg tablet 40 mg PO DAILY 10/06/22 05/08/23 gabapentin 300 mg capsule 300 mg PO TID 10/06/22 05/08/23 metoprolol succinate 100 mg 100 mg PO DAILY 10/06/22 05/08/23 tablet,extended release 24 hr omeprazole 40 mg capsule,delayed 40 mg PO DAILY@0630 10/06/22 05/08/23 release ipratropium 0.5 mg-albuterol 3 mg 3 ml inhalation Q8H PRN Shortness 11/03/22 05/08/23 (2.5 mg base)/3 mL nebulization Of Breath Or Wheezing soln ferrous sulfate 324 mg (65 mg 1 tab PO DAILY 12/22/22 05/08/23 iron) tablet,delayed release insulin lispro 100 unit/mL 7 - 15 unit subcut TID 04/17/23 05/08/23 subcutaneous pen Previous Rx's Medication Instructions Recorded amlodipine 10 mg tablet 10 mg PO DAILY 30 days #30 tabs 08/07/22 magnesium oxide 400 mg (241.3 mg 400 mg PO BIDPC #60 tabs 08/20/22 magnesium) tablet sucralfate 1 gram tablet 1 g PO QIDACHS #120 tabs 09/10/22 lorazepam 1 mg tablet (Ativan) 1 mg PO BEDTIME PRN sleep #14 tabs 02/27/23 furosemide 40 mg tablet 40 mg PO BID@0630,1630 #120 tabs 04/18/23 hydralazine 100 mg tablet 100 mg PO TID 30 days #90 tabs 05/09/23 Allergies Allergy/AdvReac Type Severity Reaction Status Date / Time dulaglutide [From Trulicity] Allergy Unknown Verified 05/10/23 09:12 metformin [METFORMIN] AdvReac Mild DIARRHEA, Verified 05/10/23 09:12 nausea and vomiting Review of Systems Review of Systems: All other systems are reviewed and are negative Constitutional: Reports as per HPI and Reports no additional constitutional complaints Eyes: Reports as per HPI and Reports no additional eye complaints Reports system reviewed and no additional complaints, except as documented Cardiovascular: Reports as per HPI and Reports no additional cardiovascular complaints Respiratory: Reports as per HPI and Reports no additional respiratory complaints Gastrointestinal: Reports as per HPI and Reports no additional gastrointestinal complaints Genitourinary: Reports no additional female genitourinary complaints Musculoskeletal: Reports no additional musculoskeletal complaints Skin/Breast: Reports system reviewed and no additional complaints, except as docu Psychiatric: Reports no additional psychiatric complaints Endocrine: Reports no additional endocrine complaints Hematologic/Lymphatic: Reports no additional hematologic/lymphatic complaints Allergic/Immunologic: Reports no additional allergic/immunologic complaints Reports system reviewed and no additional complaints, except as documented and Reports Abnormal speech present [facility] Past Medical History Medical History Acute on chronic anemia Acute on chronic diastolic (congestive) heart failure Acute respiratory failure KELVIN (acute kidney injury) Anxiety Asthma CHF exacerbation Chronic heart failure with preserved ejection fraction (HFpEF) CKD (chronic kidney disease) stage 1, GFR 90 ml/min or greater Congestive heart failure Congestive heart failure Depression Diabetes HLD (hyperlipidemia) HTN (hypertension) Hypercholesteremia Hyperglycemia due to type 2 diabetes mellitus Hypoxia YARELIS (obstructive sleep apnea) YARELIS (obstructive sleep apnea) PAD (peripheral artery disease) Uncontrolled hypertension Surgical History S/P angiogram of extremity Family History Family History Father Alzheimer disease CAD (coronary artery disease) Social History Social History Household Members: Family Housing: House Do you presently have visiting nurse or other home services: No Unable to assess alcohol history related to: Unknown Alcohol intake: current Alcohol intake frequency: holidays/special occasions only Alcohol type: beer Patient Tobacco Use Status: Never used Tobacco Tobacco use type: Cigarette Cigarettes Per Day: 10 Years Smoked: >30 e-Cigarette/Vaping Use: Never Used Second Hand Smoke Exposure: No Advance Directives: Yes Advance Directives on File: Yes Advance Directives Date on File: 06/21/21 service: No Current occupational status: disabled Physical Exam ED Vital Signs: Vital Signs - 24 hr 06/25/23 18:59 06/25/23 19:25 06/25/23 19:56 Temperature 98.1 F 98.2 F Pulse Rate 57 52 64 Respiratory Rate 18 16 16 Blood Pressure 159/76 H 147/60 H Pulse Oximetry 97 100 Oxygen Delivery Method Room Air Room Air BMI result Body Mass Index 23.6 Vital signs have been reviewed as appeared to be correct. Blood pressure normal. Heart rate normal. Respiration rate normal. Temperature normal. Oxygen saturation normal. Appearance: Alert. Oriented X3. No acute distress. Head: Normal external exam. Normocephalic. Atraumatic. No Thao signs noted. No raccoon eyes noted Eyes: PERRLA. EOMI. Conjunctiva and sclera normal. Eyelids normal. ENT: TM's Normal. Pharynx normal. Uvula midline. Moist mucous membranes. No trismus noted. No drooling noted. No muffled voice noted. Neck: Normal inspection. Neck supple. FROM. No adenopathy. Thyroid Normal. No meningeal signs. No neck mass noted. CVS: Normal heart rate and rhythm. Heart sound normal. No murmurs noted. Pulses normal throughout. Respiratory: No respiratory distress. Painless inspiration. Breath sounds normal. Diffuse mild expiratory wheezing bilaterally with prolonged expiration. Chest nontender. No accessory muscle usage noted or decreased air movement noted. Abdomen: Soft and nontender. Bowel sounds normal in all 4 quadrants. No distention noted. No organomegaly noted. No visible injury noted. Back: No CVA tenderness. Full range of motion noted. Skin: Skin warm and dry. Normal skin color. Normal skin turgor. No rashes/lesions/lacerations noted. Extremities: No lower extremity edema. Extremities exhibit normal range of motion. Extremities nontender. Neuro: Oriented X 3. Cranial nerve exam: II-XII are grossly intact No motor deficit. No sensory deficit. Reflexes normal. Course Course Course Narrative: 47-year-old male smoker with history of COPD and respiratory failure came in for shortness of breath and coughing, no evidence of pneumonia patient received Solu-Medrol/bronchodilator/magnesium/and Zosyn. Medications Administered Discontinued Medications Generic Name Dose Route Start Last Admin Trade Name Freq PRN Reason Stop Dose Admin Albuterol Sulfate 7.5 mg 06/25/23 19:15 06/25/23 19:23 Albuterol Sulfate (0.083%) 2.5 Mg/3 Ml Vial.Neb INHALE 06/25/23 19:16 7.5 mg ONCE ONE Administration Albuterol/Ipratropium 3 ml 06/25/23 19:15 06/25/23 19:23 Albuterol/Iprat 2.5/0.5mg 3 Ml Ampul.Neb INHALE 06/25/23 19:16 3 ml ONCE ONE Administration Sodium Chloride 1,000 mls @ 999 mls/hr 06/25/23 19:15 06/25/23 20:50 Ns IV 06/25/23 20:15 999 mls/hr .Q1H1M ONE Administration Magnesium Sulfate 2 gm in 50 mls @ 25 mls/hr 06/25/23 19:15 06/25/23 20:49 Magnesium Sulfate/H2o IV 06/25/23 21:14 25 mls/hr ONCE ONE Administration Piperacillin Sod/Tazobactam 50 mls @ 100 mls/hr 06/25/23 19:15 06/25/23 20:49 Sod 3.375 gm/ Sodium Chloride IV 06/25/23 19:44 100 mls/hr ONCE ONE Administration Methylprednisolone Sodium Succinate 125 mg 06/25/23 19:15 06/25/23 20:49 Methylprednisolone Sod Succ 125 Mg/2 Ml Vial IVPUSH 06/25/23 19:16 125 mg ONCE ONE Administration Medical Decision Making Differential Diagnosis Differential Diagnoses: The differential diagnosis associated with the presentation includes (COPD, pneumonia, pulmonary embolism, pneumothorax, pleural effusion, ACS, electrolyte abnormality, severe anemia, CHF.) Admission/Observation Consideration of admission/observation: Escalation of care including admission/observation considered Consult Healthcare Provider Management of the patient was discussed with: Hospitalist (Dr. Ricardo) Lab Data MDM Lab Attestation statement: I reviewed the patient's lab results. 06/25/23 19:53 06/25/23 19:53 Labs: Lab Results 06/25/23 06/25/23 06/25/23 Range/Units 19:41 19:53 19:53 WBC 12.4 H (4.8-10.8) X10*3/uL RBC 5.01 D (4.60-5.80) X10*6/uL Hgb 13.2 L D (14.0-18.0) g/dl Hct 40.9 L (42.0-52.0) % MCV 81.6 (80.0-98.0) fL MCH 26.3 L (27.0-33.0) pg MCHC 32.3 (31.0-36.0) g/dl RDW 16.1 H (11.0-16.0) % Plt Count 252 (160-400) X10*3/uL MPV 11.5 (9.4-12.4) fL Immature Gran % (Auto) 0.2 (0.0-0.4) % Neut % (Auto) 74.9 H (45-73) % Lymph % (Auto) 14.2 L (20-40) % [place] % (Auto) 9.3 (2-11) % Eos % (Auto) 1.0 (0-4) % Baso % (Auto) 0.4 (0-2) % Lymph # (Auto) 1.8 (1.2-4.9) X10*3/uL [place] # (Auto) 1.2 (0.1-1.2) X10*3/uL Eos # (Auto) 0.1 (0.0-0.4) X10*3/uL Baso # (Auto) 0.1 (0.0-0.2) X10*3/uL Abs Immat Gran (auto) 0.03 (0.00-0.03) X10*3/uL Absolute Neuts (auto) 9.3 H (2.0-8.3) x10*3/uL Absolute Nucleated RBC 0.000 (0.0-0.012) X10*3/uL Nucleated RBC % (auto) 0.0 (0.0-0.2) /100WBC D-Dimer High Sensitivty NG/ML Sodium 139 (135-145) mmol/L Potassium 4.6 (3.3-5.1) mmol/L Chloride 107 (96-108) mmol/L Carbon Dioxide 21 L (22-29) mmol/L Anion Gap 16 (12-20) BUN 36 H (9-16) mg/dL Creatinine 1.78 H (0.5-1.4) mg/dL Estim Creat Clear Calc 44.1 Estimated GFR 41 Random Glucose 158 H (60-115) mg/dL Lactic Acid (0.5-2.0) mmol/L Calcium 9.4 (8.4-10.2) mg/dL Total Bilirubin 0.3 (0.0-1.0) mg/dL Direct Bilirubin 0.1 (0.0-0.5) mg/dL AST 30 (5-37) U/L ALT 38 (0-40) U/L Alkaline Phosphatase 91 (39-117) U/L Troponin I High Sens (<3.5-35.0) ng/L B-Natriuretic Peptide (<100) pg/mL Total Protein 7.5 (6.5-8.0) g/dL Albumin 4.1 (3.5-5.0) g/dL Lipase 28 (8-78) U/L Influenza Type A (PCR) NEGATIVE (Negative) Influenza Type B (PCR) NEGATIVE (Negative) RSV RNA Qual (PCR) NEGATIVE (Negative) SARS-CoV-2 RNA (RT-PCR) NEGATIVE (Negative) 06/25/23 06/25/23 06/25/23 Range/Units 19:53 19:53 19:53 WBC (4.8-10.8) X10*3/uL RBC (4.60-5.80) X10*6/uL Hgb (14.0-18.0) g/dl Hct (42.0-52.0) % MCV (80.0-98.0) fL MCH (27.0-33.0) pg MCHC (31.0-36.0) g/dl RDW (11.0-16.0) % Plt Count (160-400) X10*3/uL MPV (9.4-12.4) fL Immature Gran % (Auto) (0.0-0.4) % Neut % (Auto) (45-73) % Lymph % (Auto) (20-40) % [place] % (Auto) (2-11) % Eos % (Auto) (0-4) % Baso % (Auto) (0-2) % Lymph # (Auto) (1.2-4.9) X10*3/uL [place] # (Auto) (0.1-1.2) X10*3/uL Eos # (Auto) (0.0-0.4) X10*3/uL Baso # (Auto) (0.0-0.2) X10*3/uL Abs Immat Gran (auto) (0.00-0.03) X10*3/uL Absolute Neuts (auto) (2.0-8.3) x10*3/uL Absolute Nucleated RBC (0.0-0.012) X10*3/uL Nucleated RBC % (auto) (0.0-0.2) /100WBC D-Dimer High Sensitivty 151 NG/ML Sodium (135-145) mmol/L Potassium (3.3-5.1) mmol/L Chloride (96-108) mmol/L Carbon Dioxide (22-29) mmol/L Anion Gap (12-20) BUN (9-16) mg/dL Creatinine (0.5-1.4) mg/dL Estim Creat Clear Calc Estimated GFR Random Glucose (60-115) mg/dL Lactic Acid 1.4 (0.5-2.0) mmol/L Calcium (8.4-10.2) mg/dL Total Bilirubin (0.0-1.0) mg/dL Direct Bilirubin (0.0-0.5) mg/dL AST (5-37) U/L ALT (0-40) U/L Alkaline Phosphatase (39-117) U/L Troponin I High Sens < 2.7 (<3.5-35.0) ng/L B-Natriuretic Peptide (<100) pg/mL Total Protein (6.5-8.0) g/dL Albumin (3.5-5.0) g/dL Lipase (8-78) U/L Influenza Type A (PCR) (Negative) Influenza Type B (PCR) (Negative) RSV RNA Qual (PCR) (Negative) SARS-CoV-2 RNA (RT-PCR) (Negative) 06/25/23 Range/Units 19:53 WBC (4.8-10.8) X10*3/uL RBC (4.60-5.80) X10*6/uL Hgb (14.0-18.0) g/dl Hct (42.0-52.0) % MCV (80.0-98.0) fL MCH (27.0-33.0) pg MCHC (31.0-36.0) g/dl RDW (11.0-16.0) % Plt Count (160-400) X10*3/uL MPV (9.4-12.4) fL Immature Gran % (Auto) (0.0-0.4) % Neut % (Auto) (45-73) % Lymph % (Auto) (20-40) % [place] % (Auto) (2-11) % Eos % (Auto) (0-4) % Baso % (Auto) (0-2) % Lymph # (Auto) (1.2-4.9) X10*3/uL [place] # (Auto) (0.1-1.2) X10*3/uL Eos # (Auto) (0.0-0.4) X10*3/uL Baso # (Auto) (0.0-0.2) X10*3/uL Abs Immat Gran (auto) (0.00-0.03) X10*3/uL Absolute Neuts (auto) (2.0-8.3) x10*3/uL Absolute Nucleated RBC (0.0-0.012) X10*3/uL Nucleated RBC % (auto) (0.0-0.2) /100WBC D-Dimer High Sensitivty NG/ML Sodium (135-145) mmol/L Potassium (3.3-5.1) mmol/L Chloride (96-108) mmol/L Carbon Dioxide (22-29) mmol/L Anion Gap (12-20) BUN (9-16) mg/dL Creatinine (0.5-1.4) mg/dL Estim Creat Clear Calc Estimated GFR Random Glucose (60-115) mg/dL Lactic Acid (0.5-2.0) mmol/L Calcium (8.4-10.2) mg/dL Total Bilirubin (0.0-1.0) mg/dL Direct Bilirubin (0.0-0.5) mg/dL AST (5-37) U/L ALT (0-40) U/L Alkaline Phosphatase (39-117) U/L Troponin I High Sens (<3.5-35.0) ng/L B-Natriuretic Peptide 35 (<100) pg/mL Total Protein (6.5-8.0) g/dL Albumin (3.5-5.0) g/dL Lipase (8-78) U/L Influenza Type A (PCR) (Negative) Influenza Type B (PCR) (Negative) RSV RNA Qual (PCR) (Negative) SARS-CoV-2 RNA (RT-PCR) (Negative) Independent Interpretation I performed an independent interpretation of an: EKG (Sinus bradycardia at 51 beats per minute, right axis deviation, right intervals, no ST-T changes.) and Plain X-Ray (Chest: No acute intrathoracic pathology.) Radiology Impression Discussion of test interpretation with radiology: I have reviewed the radiologist's reading. (Unremarkable examination.) Chronic Conditions Patient?s care impacted by: Other (COPD, respiratory failure.) Critical Care Time Critical Care Time Critical Care Time: Yes Total Critical Care Time: 60 Attestation: I spent 60 minutes providing critical care service to the patient, this including time spent at the bedside to evaluate the patient, reassess the patient, monitoring vital signs, review labs, and radiographic studies, counseling the patient/family, discussing the case with consultants, disposition the patient. Discharge Plan Discharge Clinical Impression: COPD exacerbation Patient Disposition: Admitted As Inpatient
--- NOTE | 2023-06-25 19:15 | ECG_ITS ---
Test Reason : MED CLEARANCE Blood Pressure : / mmHG Vent. Rate : 051 BPM Atrial Rate : 051 BPM P-R Int : 140 ms QRS Dur : 078 ms QT Int : 434 ms P-R-T Axes : 000 149 120 degrees QTc Int : 400 ms Suspect limb lead reversal, interpretation assumes no reversal Sinus bradycardia Left posterior fascicular block Abnormal ECG When compared with ECG of 10-MAY-2023 09:49, Left posterior fascicular block is now Present T wave inversion now evident in Lateral leads Referred By: Fercho Powell Electronically Signed By:BETO TURNER
[2023-06-25] MEDS: Albuterol/Iprat 2.5/0.5MG 3 ML AMPUL.NEB INHALE (19:23)
[2023-06-25] MEDS: Albuterol Sulfate (0.083%) 2.5 MG/3 ML VIAL.NEB 7.5 MG INHALE (19:23)
[2023-06-25 19:25] VITALS: PULSE 52; RESP 16; O2SAT 99
--- NOTE | 2023-06-25 19:42 | PC.NURSE ---
This RN assumed care at 1930. Patient complaining of all over body aches. Patient swabbed and labs drawn.
[2023-06-25 19:56] VITALS: BP 147/60; PULSE 64; RESP 16; TEMP 36.8; O2SAT 100
[2023-06-25 19:58] LABS: MANUAL DIFF FLAG NO
--- NOTE | 2023-06-25 20:11 | MHC.EDTECH ---
PATIENT CAME IN VIA EMS ,EKG TAKEN AND WAS READ BY PROVIDER ,BLOOD DRAWN ,INCLUDING 1SET AND ND SETS OF BLOOD CULTURE AND LACTIC ACID ALL SENT TO LAB ,PT GOT CHANGE INTO HOSPITAL ATTIRE AND WAS HOOKED UP TO ASSEMBLER CONVERTIBLE TOP ,VITALS SIGN TAKEN ,PT IS COMFORTABLE HAVING HIS BREATHING TREATMENT .
[2023-06-25 20:13] LABS: Basophils Absolute Auto 0.1 X10*3/uL (0.0-0.2); Basophils Percent Auto 0.4 % (0-2); Eosinophils Absolute Auto 0.1 X10*3/uL (0.0-0.4); Hematocrit 40.9 % (42.0-52.0); Hemoglobin 13.2 g/dl (14.0-18.0); Imm Gran Abs Auto 0.03 X10*3/uL (0.00-0.03); Imm Gran Pct Auto 0.2 % (0.0-0.4); Lymphocytes Absolute Auto 1.8 X10*3/uL (1.2-4.9); Lymphocytes Percent Auto 14.2 % (20-40); Mean Corpuscular HGB Conc 32.3 g/dl (31.0-36.0); Mean Corpuscular Hemoglobin 26.3 pg (27.0-33.0); Mean Corpuscular Volume 81.6 fL (80.0-98.0); Mean Platelet Volume 11.5 fL (9.4-12.4); Monocytes Absolute Auto 1.2 X10*3/uL (0.1-1.2); Monocytes Percent Auto 9.3 % (2-11); Neutrophils Absolute Auto 9.3 x10*3/uL (2.0-8.3); Neutrophils Percent Auto 74.9 % (45-73); Platelet Count 252 X10*3/uL (160-400); Red Blood Count 5.01 X10*6/uL (4.60-5.80); Red Cell Distribution Width 16.1 % (11.0-16.0); White Blood Count 12.4 X10*3/uL (4.8-10.8)
[2023-06-25 20:14] LABS: Lactic Acid 1.4 mmol/L (0.5-2.0)
[2023-06-25 20:24] LABS: D Dimer High Sensitivity 151 NG/ML
[2023-06-25 20:25] LABS: Alanine Aminotransferase 38 U/L (0-40); Albumin Level 4.1 g/dL (3.5-5.0); Alkaline Phosphatase 91 U/L (39-117); Anion Gap 16 (12-20); Aspartate Amino Transferase 30 U/L (5-37); B Type Natriuretic Peptide 35 pg/mL (<100); Bilirubin Direct 0.1 mg/dL (0.0-0.5); Bilirubin Total 0.3 mg/dL (0.0-1.0); Blood Urea Nitrogen 36 mg/dL (9-16); Calcium 9.4 mg/dL (8.4-10.2); Carbon Dioxide 21 mmol/L (22-29); Chloride 107 mmol/L (96-108); Creatinine Clr Calc Pharmacy 44.1; Estimated Glomerular Filt Rate 41; Glucose Random 158 mg/dL (60-115); Lipase 28 U/L (8-78); Potassium 4.6 mmol/L (3.3-5.1); Sodium 139 mmol/L (135-145); Total Protein 7.5 g/dL (6.5-8.0)
[2023-06-25 20:28] LABS: Troponin-I High Sensitivity < 2.7 ng/L (<3.5-35.0)
[2023-06-25 20:31] LABS: Influenza A PCR NEGATIVE (Negative); Influenza B PCR NEGATIVE (Negative); Resp Syncy Virus RNA Qual PCR NEGATIVE (Negative); SARS COV2 PCR INHOUSE NEGATIVE (Negative)
[2023-06-25] MEDS: Piperacillin Sodium/Tazobactam 3.375 GM in 0.9 % Sodium Chloride 50 ML IV (20:49)
[2023-06-25] MEDS: methylPREDNISolone Sod Succ 125 MG/2 ML VIAL IVPUSH (20:49)
[2023-06-25] MEDS: Magnesium Sulfate/H2O 2 GM/50 ML PIGGYBACK IV (20:49)
[2023-06-25] MEDS: 0.9 % Sodium Chloride 1,000 ML 999 ML IV (20:50)
[2023-06-25 21:59] VITALS: BP 122/52; PULSE 84; RESP 15; TEMP 36.8; O2SAT 95
[2023-06-25] MEDS: Enoxaparin Sodium 40 MG/0.4 ML SYRINGE SUBCUT (22:26)
--- NOTE | 2023-06-25 22:44 | MHC.EDTECH ---
patient belonging list done .
--- NOTE | 2023-06-25 22:48 | MHC.EDTECH ---
PT WAS GIVEN JUICE TO DRINK .
[2023-06-25 23:12] VITALS: BP 118/57; PULSE 90; RESP 17; TEMP 36.8; O2SAT 97
[2023-06-26] VITALS (8 sets, daily range): BP systolic 112–141; BP diastolic 44–73; PULSE 83–106; RESP 13–22; TEMP 36.2–36.9; O2SAT 92–98; BMI 23.1
[2023-06-26 01:04] LABS: Glucose, Whole Blood 332 mg/dL (60-115)
[2023-06-26] MEDS: 0.9 % Sodium Chloride Flush 3 ML SYRINGE IVFLUSH ×4 (01:14→19:46)
[2023-06-26 05:40] LABS: Basophils Percent Auto 0.2 % (0-2); Hematocrit 37.1 % (42.0-52.0); Hemoglobin 11.6 g/dl (14.0-18.0); Imm Gran Abs Auto 0.05 X10*3/uL (0.00-0.03); Imm Gran Pct Auto 0.4 % (0.0-0.4); Lymphocytes Absolute Auto 0.5 X10*3/uL (1.2-4.9); Lymphocytes Percent Auto 4.1 % (20-40); MANUAL DIFF FLAG SCAN; Mean Corpuscular HGB Conc 31.3 g/dl (31.0-36.0); Mean Platelet Volume 12.3 fL (9.4-12.4); Monocytes Absolute Auto 0.1 X10*3/uL (0.1-1.2); Monocytes Percent Auto 0.5 % (2-11); Neutrophils Absolute Auto 10.8 x10*3/uL (2.0-8.3); Neutrophils Percent Auto 94.8 % (45-73); Platelet Count 257 X10*3/uL (160-400); Red Blood Count 4.47 X10*6/uL (4.60-5.80); SCAN SMEAR FLAG 1; White Blood Count 11.4 X10*3/uL (4.8-10.8)
[2023-06-26 05:58] LABS: Calcium 8.8 mg/dL (8.4-10.2)
[2023-06-26 05:59] LABS: Anion Gap 16 (12-20); Blood Urea Nitrogen 41 mg/dL (9-16); Carbon Dioxide 18 mmol/L (22-29); Chloride 104 mmol/L (96-108); Creatinine Clr Calc Pharmacy 38.5; Estimated Glomerular Filt Rate 35; Glucose Random 537 mg/dL (60-115); Sodium 133 mmol/L (135-145)
[2023-06-26 06:02] LABS: SLIDE REVIEW VERIFIED
--- NOTE | 2023-06-26 06:36 | PM.IMHP ---
History of Present Illness Date of Service: 06/25/23 Chief Complaint: SOB, body aches 47-year-old male past medical history of COPD, peripheral vascular disease, diabetes, congestive heart failure with preserved ejection fraction, hypertension, YARELIS, comes into the hospital with complaints of body aches as well as shortness of breath, cough, sputum production. Symptoms started 2 days ago, denies any lower extremity edema, no orthopnea PND. No recent travel or sick contacts Patient denies abdominal pain nausea or vomiting, no chest pain, no palpitation, no urinary symptoms and no lower extremity edema On arrival to the ED patient hemodynamically stable Labs are significant for WBC count of 12.4, hemoglobin of 13.2, hematocrit of 40.9, creatinine of 1.78 which is around his baseline, BNP of 35, Chest x-ray shows unremarkable exam Patient will be admitted for further management Review of Systems Review of Systems: Yes all other systems are reviewed and are negative FORMERLY [facility], [facility]–1983 Medical History Acute on chronic anemia Acute on chronic diastolic (congestive) heart failure Acute respiratory failure KELVIN (acute kidney injury) Anxiety Asthma CHF exacerbation Chronic heart failure with preserved ejection fraction (HFpEF) CKD (chronic kidney disease) stage 1, GFR 90 ml/min or greater Congestive heart failure Congestive heart failure Depression Diabetes HLD (hyperlipidemia) HTN (hypertension) Hypercholesteremia Hyperglycemia due to type 2 diabetes mellitus Hypoxia YARELIS (obstructive sleep apnea) YARELIS (obstructive sleep apnea) PAD (peripheral artery disease) Uncontrolled hypertension Family History Father Alzheimer disease CAD (coronary artery disease) Surgical History S/P angiogram of extremity Social History Household Members: Family Housing: House Do you presently have visiting nurse or other home services: No Unable to assess alcohol history related to: Unknown Alcohol intake: current Alcohol intake frequency: holidays/special occasions only Alcohol type: beer Patient Tobacco Use Status: Never used Tobacco Tobacco use type: Cigarette Cigarettes Per Day: 10 Years Smoked: >30 e-Cigarette/Vaping Use: Never Used Second Hand Smoke Exposure: No Advance Directives: Yes Advance Directives on File: Yes Advance Directives Date on File: 06/21/21 service: No Current occupational status: disabled Meds Allergies Allergy/AdvReac Type Severity Reaction Status Date / Time dulaglutide [From Trulicity] Allergy Unknown Verified 05/10/23 09:12 metformin [METFORMIN] AdvReac Mild DIARRHEA, Verified 05/10/23 09:12 nausea and vomiting Active Medications: Current Medications Acetaminophen (Acetaminophen 325 Mg Tablet) 650 mg PO Q6H PRN PRN Reason: Pain, Mild (Pain Scale 1-3) Albuterol/Ipratropium (Albuterol/Iprat 2.5/0.5mg 3 Ml Ampul.Neb) 3 ml INHALE RQ4H PRN PRN Reason: Shortness of Breath/Wheezing Albuterol/Ipratropium (Albuterol/Iprat 2.5/0.5mg 3 Ml Ampul.Neb) 3 ml INHALE RQ4H WHILE AWAKE DION[facility]IO Dextrose (Dextrose 50 % 25 Gm/50 Ml Syringe) 25 gm IVPUSH Q15M PRN; Protocol PRN Reason: per Hypoglycemia Standing Ord. Docusate Sodium (Docusate Sodium 100 Mg Capsule) 100 mg PO DAILY PRN PRN Reason: Constipation Enoxaparin Sodium (Enoxaparin Sodium 40 Mg/0.4 Ml Syringe) 40 mg SUBCUT Q24H [facility] Last Admin: 06/25/23 22:26 Dose: 40 mg Glucose (Glucose Gel 15 Gm Gel..Gram.) 15 gm PO Q15M PRN; Protocol PRN Reason: per Hypoglycemia Standing Ord. Insulin Human Lispro (Insulin Lispro 100 Unit/Ml 3 Ml Vial) 0 unit SUBCUT QIDACHS [facility]; Protocol Methylprednisolone Sodium Succinate (Methylprednisolone Sod Succ 40 Mg/Ml Vial) 40 mg IVPUSH Q12H [facility] Ondansetron HCl (Ondansetron Hcl 4 Mg/2 Ml Vial) 4 mg IVPUSH Q8H PRN PRN Reason: Nausea and Vomiting Sodium Chloride (0.9 % Sodium Chloride Flush 3 Ml Syringe) 3 ml IVFLUSH QSHIFT [facility] Last Admin: 06/26/23 01:14 Dose: 3 ml Home Medications Medication Instructions Recorded Confirmed Last Taken Type albuterol sulfate 90 mcg/actuation 2 puff inhalation Q6H PRN 08/01/22 05/08/23 Unknown History aerosol inhaler Shortness Of Breath Or Wheezing escitalopram oxalate 10 mg tablet 10 mg PO DAILY 08/01/22 05/08/23 12/21/22 History insulin lispro 100 unit/mL See Rx Instructions .Route .COMPLEX 08/01/22 05/08/23 12/22/22 History subcutaneous solution trazodone 50 mg tablet 50 - 100 mg PO BEDTIME 08/01/22 05/08/23 12/21/22 History aspirin 81 mg tablet,delayed 81 mg PO DAILY 10/06/22 05/08/23 12/21/22 History release atorvastatin 40 mg tablet 40 mg PO DAILY 10/06/22 05/08/23 12/21/22 History gabapentin 300 mg capsule 300 mg PO TID 10/06/22 05/08/23 12/21/22 History metoprolol succinate 100 mg 100 mg PO DAILY 10/06/22 05/08/23 12/21/22 History tablet,extended release 24 hr omeprazole 40 mg capsule,delayed 40 mg PO DAILY@0630 10/06/22 05/08/23 12/21/22 History release ipratropium 0.5 mg-albuterol 3 mg 3 ml inhalation Q8H PRN Shortness 11/03/22 05/08/23 Unknown History (2.5 mg base)/3 mL nebulization Of Breath Or Wheezing soln ferrous sulfate 324 mg (65 mg 1 tab PO DAILY 12/22/22 05/08/23 12/21/22 History iron) tablet,delayed release insulin lispro 100 unit/mL 7 - 15 unit subcut TID 04/17/23 05/08/23 Unknown History subcutaneous pen Physical Exam Vital Signs and Narrative: Vital Signs: Last Vital Signs Temp 98.2 F 06/26/23 02:00 Pulse 85 06/26/23 02:00 Resp 16 06/26/23 02:00 BP 112/44 L 06/26/23 02:00 Pulse Ox 98 06/26/23 02:00 O2 Del Method Room Air 06/26/23 02:00 BMI result Body Mass Index 23.6 Const: General: cooperative and no acute distress Orientation/consciousness: patient oriented x3 Eyes: General: appearance normal, both eyes and all related structures Resp: Other: Bilateral rhonchi Effort & Inspection: normal respiratory effort Cardio: Rate: regular rate Rhythm: regular rhythm GI: Palpation (GI): Soft to palpation Auscultation: normal bowel sounds Skin: General skin exam: no rashes or lesions noted Neuro: General: patient oriented x3 Cognition (Neuro): normal cognition Extrem: General: Yes normal to inspection and Yes no pedal edema Results Labs 06/26/23 05:17 06/26/23 05:17 Labs: Laboratory Results - last 24 hr 06/25/23 06/25/23 06/25/23 19:41 19:53 19:53 MCV 81.6 MCH 26.3 L MCHC 32.3 RDW 16.1 H Plt Count 252 MPV 11.5 Immature Gran % (Auto) 0.2 Neut % (Auto) 74.9 H Lymph % (Auto) 14.2 L [place] % (Auto) 9.3 Eos % (Auto) 1.0 Baso % (Auto) 0.4 Lymph # (Auto) 1.8 [place] # (Auto) 1.2 Eos # (Auto) 0.1 Baso # (Auto) 0.1 Abs Immat Gran (auto) 0.03 Absolute Neuts (auto) 9.3 H Absolute Nucleated RBC 0.000 Nucleated RBC % (auto) 0.0 Smear Tech's Comments D-Dimer High Sensitivty Anion Gap 16 Estim Creat Clear Calc 44.1 Estimated GFR 41 POC Glucose Random Glucose 158 H Lactic Acid Calcium 9.4 Total Bilirubin 0.3 Direct Bilirubin 0.1 AST 30 ALT 38 Alkaline Phosphatase 91 B-Natriuretic Peptide Total Protein 7.5 Albumin 4.1 Lipase 28 Influenza Type A (PCR) NEGATIVE Influenza Type B (PCR) NEGATIVE RSV RNA Qual (PCR) NEGATIVE SARS-CoV-2 RNA (RT-PCR) NEGATIVE 06/25/23 06/25/23 06/25/23 19:53 19:53 19:53 MCV MCH MCHC RDW Plt Count MPV Immature Gran % (Auto) Neut % (Auto) Lymph % (Auto) [place] % (Auto) Eos % (Auto) Baso % (Auto) Lymph # (Auto) [place] # (Auto) Eos # (Auto) Baso # (Auto) Abs Immat Gran (auto) Absolute Neuts (auto) Absolute Nucleated RBC Nucleated RBC % (auto) Smear Tech's Comments D-Dimer High Sensitivty 151 Anion Gap Estim Creat Clear Calc Estimated GFR POC Glucose Random Glucose Lactic Acid 1.4 Calcium Total Bilirubin Direct Bilirubin AST ALT Alkaline Phosphatase B-Natriuretic Peptide 35 Total Protein Albumin Lipase Influenza Type A (PCR) Influenza Type B (PCR) RSV RNA Qual (PCR) SARS-CoV-2 RNA (RT-PCR) 06/26/23 06/26/23 06/26/23 01:00 05:17 05:17 MCV 83.0 MCH 26.0 L MCHC 31.3 RDW 16.0 Plt Count 257 MPV 12.3 Immature Gran % (Auto) 0.4 Neut % (Auto) 94.8 H Lymph % (Auto) 4.1 L [place] % (Auto) 0.5 L Eos % (Auto) 0.0 Baso % (Auto) 0.2 Lymph # (Auto) 0.5 L [place] # (Auto) 0.1 Eos # (Auto) 0.0 Baso # (Auto) 0.0 Abs Immat Gran (auto) 0.05 H Absolute Neuts (auto) 10.8 H Absolute Nucleated RBC 0.000 Nucleated RBC % (auto) 0.0 Smear Tech's Comments VERIFIED D-Dimer High Sensitivty Anion Gap 16 Estim Creat Clear Calc 38.5 Estimated GFR 35 POC Glucose 332 H Random Glucose 537 H* Lactic Acid Calcium 8.8 D Total Bilirubin Direct Bilirubin AST ALT Alkaline Phosphatase B-Natriuretic Peptide Total Protein Albumin Lipase Influenza Type A (PCR) Influenza Type B (PCR) RSV RNA Qual (PCR) SARS-CoV-2 RNA (RT-PCR) Imaging Radiologist's Impressions: Impressions Chest X-Ray 06/25/23 19:47 IMPRESSION: Unremarkable examination. Assessment and Plan (1) COPD with acute exacerbation: Status: Acute Plan 47-year-old male past medical history of CHF with preserved ejection fraction, COPD, hypertension, diabetes, comes into the hospital with complaints of shortness of breath, cough, sputum production # acute COPD exacerbation - has dyspnea, cough, increased sputum production - will treat with IV Solu-Medrol, DuoNeb p.r.n. as well as schedule - monitor respiratory status # CHF - not in exacerbation, euvolemic -continue home furosemide # hypertension - stable - continue home antihypertensives # diabetes - elevated glucose - will administer extra doses of insulin lispro, - continue home insulin - low-dose sliding scale insulin, diabetic diet DVT prophylaxis: Lovenox Given need for management of COPD exacerbation patient require minimum 2 nights inpatient hospital stay for further management and monitoring Time Spent With Patient Time: Total time managing care of this patient today ____ minutes. Quality Stroke Does the patient have a stroke diagnosis?: No VTE Prior VTE?: No VTE Risk Level:: Medical - moderate - high VTE Device Contraindication: Treatment Not Indicated VTE Drug Contraindication: N/A - Med Ordered
[2023-06-26 07:22] LABS: Glucose, Whole Blood 503 mg/dL (60-115)
[2023-06-26] MEDS: Albuterol/Iprat 2.5/0.5MG 3 ML AMPUL.NEB INHALE ×4 (07:37→19:37)
[2023-06-26 07:43] LABS: Glucose, Whole Blood 511 mg/dL (60-115)
[2023-06-26] MEDS: Insulin Lispro 100 UNIT/ML 3 ML VIAL SUBCUT ×4 (08:03→22:30)
[2023-06-26] MEDS: Insulin Glargine,Hum.rec.anlog 100 UNIT/ML 10 ML VIAL 10 UNIT SUBCUT (08:05)
[2023-06-26 08:55] LABS: Estimated Average Glucose 200 mg/dL; Hemoglobin A1c % 8.6 % (<6.0)
--- NOTE | 2023-06-26 09:06 | PHA.MEDREC ---
Pharmacy Consult ? Medication Reconciliation Pharmacy has completed the medication reconciliation. Patient knew medication. Has not been able to fill the pump in a while and instead using 27 units of lantus and sliding scale. patient hasnt been able to take meds for 2 days
[2023-06-26] MEDS: Insulin Glargine,Hum.rec.anlog 100 UNIT/ML 10 ML VIAL 17 UNIT SUBCUT (09:09)
[2023-06-26] MEDS: Magnesium Sulfate/H2O 2 GM/50 ML PIGGYBACK IV (09:09)
[2023-06-26] MEDS: Doxycycline Hyclate 100 MG in 0.9 % Sodium Chloride 250 ML 166.67 MG IV ×2 (09:42→22:31)
[2023-06-26 10:31] LABS: Adenovirus PCR Not Detected (Not Detect.); Bordetella parapertussis PCR Not Detected (Not Detect.); Bordetella pertussis PCR Not Detected (Not Detect.); Chlamydia pneumoniae PCR Not Detected (Not Detect.); Coronavirus 229E PCR Not Detected (Not Detect.); Coronavirus HKU1 PCR Not Detected (Not Detect.); Coronavirus NL63 PCR Not Detected (Not Detect.); Coronavirus OC43 PCR Not Detected (Not Detect.); Human metapneumovirus PCR Not Detected (Not Detect.); Influenza A PCR Not Detected (Not Detect.); Influenza B PCR Not Detected (Not Detect.); Rhino/Enterovirus PCR Detected (Not Detect.); SARS-CoV-2 PCR Not Detected (Not Detect.)
[2023-06-26 10:32] LABS: Mycoplasma pneumoniae PCR Not Detected (Not Detect.); Parainfluenza 1 PCR Not Detected (Not Detect.); Parainfluenza 2 PCR Not Detected (Not Detect.); Parainfluenza 3 PCR Not Detected (Not Detect.); Parainfluenza 4 PCR Not Detected (Not Detect.); RSV PCR Not Detected (Not Detect.)
--- NOTE | 2023-06-26 11:29 | P.PNIM_ITS ---
Subjective Subjective Date of Service: 06/26/23 Interval History: copd excerebation ,ckd,dm with hyperglycemia Review of Systems says sob somewhat improving feels bodyaches ,nasal consgestion Physical Exam Vital Signs: Vital Signs: Last Vital Signs Temp 97.1 F 06/26/23 07:42 Pulse 83 06/26/23 11:08 Resp 18 06/26/23 11:08 BP 141/73 H 06/26/23 07:42 Pulse Ox 98 06/26/23 07:42 O2 Del Method Room Air 06/26/23 07:42 BMI result Body Mass Index 23.1 general: Alert.? Oriented X3.? sob cvs: rrr, [id number] , no murmur res: air entery diminshed ,has b/l exp wheezing abd: no rebound or guarding ,nt, bs present. ext pulses present , no cyanosis . neuro: axo3 , nonfocal. Objective Data Active Medications Acetaminophen (Acetaminophen 325 Mg Tablet) 650 mg PO Q6H PRN PRN Reason: Pain, Mild (Pain Scale 1-3) Albuterol/Ipratropium (Albuterol/Iprat 2.5/0.5mg 3 Ml Ampul.Neb) 3 ml INHALE RQ4H PRN PRN Reason: Shortness of Breath/Wheezing Albuterol/Ipratropium (Albuterol/Iprat 2.5/0.5mg 3 Ml Ampul.Neb) 3 ml INHALE RQ4H WHILE AWAKE [facility] Last Admin: 06/26/23 11:08 Dose: 3 ml Documented By: MAYCOL Dextrose (Dextrose 50 % 25 Gm/50 Ml Syringe) 25 gm IVPUSH Q15M PRN; Protocol PRN Reason: per Hypoglycemia Standing Ord. Docusate Sodium (Docusate Sodium 100 Mg Capsule) 100 mg PO DAILY PRN PRN Reason: Constipation Enoxaparin Sodium (Enoxaparin Sodium 40 Mg/0.4 Ml Syringe) 40 mg SUBCUT Q24H [facility] Last Admin: 06/25/23 22:26 Dose: 40 mg Documented By: VERONIKA Glucose (Glucose Gel 15 Gm Gel..Gram.) 15 gm PO Q15M PRN; Protocol PRN Reason: per Hypoglycemia Standing Ord. Guaifenesin (Guaifenesin La 600 Mg Tab.Er.12h) 600 mg PO BID PRN PRN Reason: cough Doxycycline Hyclate 100 mg/ (Sodium Chloride) 250 mls @ 166.67 mls/hr IV Q12H [facility] Last Infusion: 06/26/23 11:13 Dose: 0 mls/hr Documented By: ANASTACIO Insulin Glargine (Insulin Glargine,Hum.Rec.Anlog 100 Unit/Ml 10 Ml Vial) 27 unit SUBCUT DAILY [facility] Insulin Human Lispro (Insulin Lispro 100 Unit/Ml 3 Ml Vial) 0 unit SUBCUT QIDACHS [facility]; Protocol Last Admin: 06/26/23 08:03 Dose: 18 unit Documented By: ANASTACIO Comments: 18 units per md Ocasio Ondansetron HCl (Ondansetron Hcl 4 Mg/2 Ml Vial) 4 mg IVPUSH Q8H PRN PRN Reason: Nausea and Vomiting Sodium Chloride (0.9 % Sodium Chloride Flush 3 Ml Syringe) 3 ml IVFLUSH QSHIFT [facility] Last Admin: 06/26/23 08:04 Dose: 3 ml Documented By: ANASTACIO Labs 06/26/23 05:17 06/26/23 05:17 Labs: Laboratory Results - last 24 hr 06/25/23 06/25/23 06/25/23 19:41 19:53 19:53 MCV 81.6 MCH 26.3 L MCHC 32.3 RDW 16.1 H Plt Count 252 MPV 11.5 Immature Gran % (Auto) 0.2 Neut % (Auto) 74.9 H Lymph % (Auto) 14.2 L [place] % (Auto) 9.3 Eos % (Auto) 1.0 Baso % (Auto) 0.4 Lymph # (Auto) 1.8 [place] # (Auto) 1.2 Eos # (Auto) 0.1 Baso # (Auto) 0.1 Abs Immat Gran (auto) 0.03 Absolute Neuts (auto) 9.3 H Absolute Nucleated RBC 0.000 Nucleated RBC % (auto) 0.0 Smear Tech's Comments D-Dimer High Sensitivty Anion Gap 16 Estim Creat Clear Calc 44.1 Estimated GFR 41 POC Glucose Random Glucose 158 H Estimat Average Glucose Hemoglobin A1c % Lactic Acid Calcium 9.4 Total Bilirubin 0.3 Direct Bilirubin 0.1 AST 30 ALT 38 Alkaline Phosphatase 91 B-Natriuretic Peptide Total Protein 7.5 Albumin 4.1 Lipase 28 Respiratory Panel [place] Adenovirus (Rapid PCR) B.pert (TEM-PCR) B.parapertussis DNA PCR C. pneumoniae DNA (PCR) Coronavirus OC43 (PCR) Coronavirus HKU1 (PCR) Coronavirus 229E (PCR) Coronavirus NL63 (PCR) Human Metapneumovir PCR Influenza A (RT-PCR) Influenza Type A (PCR) NEGATIVE Influenza B (RT-PCR) Influenza Type B (PCR) NEGATIVE M. pneumoniae (PCR) Parainfluenza 1 (PCR) Parainfluenza 2 (PCR) Parainfluenza 3 (PCR) Parainfluenza 4 (PCR) RSV (PCR) RSV RNA Qual (PCR) NEGATIVE Entero/Rhino (PCR) SARS-CoV-2 RNA (RT-PCR) NEGATIVE 06/25/23 06/25/23 06/25/23 19:53 19:53 19:53 MCV MCH MCHC RDW Plt Count MPV Immature Gran % (Auto) Neut % (Auto) Lymph % (Auto) [place] % (Auto) Eos % (Auto) Baso % (Auto) Lymph # (Auto) [place] # (Auto) Eos # (Auto) Baso # (Auto) Abs Immat Gran (auto) Absolute Neuts (auto) Absolute Nucleated RBC Nucleated RBC % (auto) Smear Tech's Comments D-Dimer High Sensitivty 151 Anion Gap Estim Creat Clear Calc Estimated GFR POC Glucose Random Glucose Estimat Average Glucose Hemoglobin A1c % Lactic Acid 1.4 Calcium Total Bilirubin Direct Bilirubin AST ALT Alkaline Phosphatase B-Natriuretic Peptide 35 Total Protein Albumin Lipase Respiratory Panel [place] Adenovirus (Rapid PCR) B.pert (TEM-PCR) B.parapertussis DNA PCR C. pneumoniae DNA (PCR) Coronavirus OC43 (PCR) Coronavirus HKU1 (PCR) Coronavirus 229E (PCR) Coronavirus NL63 (PCR) Human Metapneumovir PCR Influenza A (RT-PCR) Influenza Type A (PCR) Influenza B (RT-PCR) Influenza Type B (PCR) M. pneumoniae (PCR) Parainfluenza 1 (PCR) Parainfluenza 2 (PCR) Parainfluenza 3 (PCR) Parainfluenza 4 (PCR) RSV (PCR) RSV RNA Qual (PCR) Entero/Rhino (PCR) SARS-CoV-2 RNA (RT-PCR) 06/26/23 06/26/23 06/26/23 01:00 05:17 05:17 MCV 83.0 MCH 26.0 L MCHC 31.3 RDW 16.0 Plt Count 257 MPV 12.3 Immature Gran % (Auto) 0.4 Neut % (Auto) 94.8 H Lymph % (Auto) 4.1 L [place] % (Auto) 0.5 L Eos % (Auto) 0.0 Baso % (Auto) 0.2 Lymph # (Auto) 0.5 L [place] # (Auto) 0.1 Eos # (Auto) 0.0 Baso # (Auto) 0.0 Abs Immat Gran (auto) 0.05 H Absolute Neuts (auto) 10.8 H Absolute Nucleated RBC 0.000 Nucleated RBC % (auto) 0.0 Smear Tech's Comments VERIFIED D-Dimer High Sensitivty Anion Gap 16 Estim Creat Clear Calc 38.5 Estimated GFR 35 POC Glucose 332 H Random Glucose 537 H* Estimat Average Glucose Hemoglobin A1c % Lactic Acid Calcium 8.8 D Total Bilirubin Direct Bilirubin AST ALT Alkaline Phosphatase B-Natriuretic Peptide Total Protein Albumin Lipase Respiratory Panel [place] Adenovirus (Rapid PCR) B.pert (TEM-PCR) B.parapertussis DNA PCR C. pneumoniae DNA (PCR) Coronavirus OC43 (PCR) Coronavirus HKU1 (PCR) Coronavirus 229E (PCR) Coronavirus NL63 (PCR) Human Metapneumovir PCR Influenza A (RT-PCR) Influenza Type A (PCR) Influenza B (RT-PCR) Influenza Type B (PCR) M. pneumoniae (PCR) Parainfluenza 1 (PCR) Parainfluenza 2 (PCR) Parainfluenza 3 (PCR) Parainfluenza 4 (PCR) RSV (PCR) RSV RNA Qual (PCR) Entero/Rhino (PCR) SARS-CoV-2 RNA (RT-PCR) 06/26/23 06/26/23 06/26/23 05:17 07:17 07:40 MCV MCH MCHC RDW Plt Count MPV Immature Gran % (Auto) Neut % (Auto) Lymph % (Auto) [place] % (Auto) Eos % (Auto) Baso % (Auto) Lymph # (Auto) [place] # (Auto) Eos # (Auto) Baso # (Auto) Abs Immat Gran (auto) Absolute Neuts (auto) Absolute Nucleated RBC Nucleated RBC % (auto) Smear Tech's Comments D-Dimer High Sensitivty Anion Gap Estim Creat Clear Calc Estimated GFR POC Glucose 503 H* 511 H* Random Glucose Estimat Average Glucose 200 Hemoglobin A1c % 8.6 H Lactic Acid Calcium Total Bilirubin Direct Bilirubin AST ALT Alkaline Phosphatase B-Natriuretic Peptide Total Protein Albumin Lipase Respiratory Panel [place] Adenovirus (Rapid PCR) B.pert (TEM-PCR) B.parapertussis DNA PCR C. pneumoniae DNA (PCR) Coronavirus OC43 (PCR) Coronavirus HKU1 (PCR) Coronavirus 229E (PCR) Coronavirus NL63 (PCR) Human Metapneumovir PCR Influenza A (RT-PCR) Influenza Type A (PCR) Influenza B (RT-PCR) Influenza Type B (PCR) M. pneumoniae (PCR) Parainfluenza 1 (PCR) Parainfluenza 2 (PCR) Parainfluenza 3 (PCR) Parainfluenza 4 (PCR) RSV (PCR) RSV RNA Qual (PCR) Entero/Rhino (PCR) SARS-CoV-2 RNA (RT-PCR) 06/26/23 08:24 MCV MCH MCHC RDW Plt Count MPV Immature Gran % (Auto) Neut % (Auto) Lymph % (Auto) [place] % (Auto) Eos % (Auto) Baso % (Auto) Lymph # (Auto) [place] # (Auto) Eos # (Auto) Baso # (Auto) Abs Immat Gran (auto) Absolute Neuts (auto) Absolute Nucleated RBC Nucleated RBC % (auto) Smear Tech's Comments D-Dimer High Sensitivty Anion Gap Estim Creat Clear Calc Estimated GFR POC Glucose Random Glucose Estimat Average Glucose Hemoglobin A1c % Lactic Acid Calcium Total Bilirubin Direct Bilirubin AST ALT Alkaline Phosphatase B-Natriuretic Peptide Total Protein Albumin Lipase Respiratory Panel [place] See Note Adenovirus (Rapid PCR) Not Detected B.pert (TEM-PCR) Not Detected B.parapertussis DNA PCR Not Detected C. pneumoniae DNA (PCR) Not Detected Coronavirus OC43 (PCR) Not Detected Coronavirus HKU1 (PCR) Not Detected Coronavirus 229E (PCR) Not Detected Coronavirus NL63 (PCR) Not Detected Human Metapneumovir PCR Not Detected Influenza A (RT-PCR) Not Detected Influenza Type A (PCR) Influenza B (RT-PCR) Not Detected Influenza Type B (PCR) M. pneumoniae (PCR) Not Detected Parainfluenza 1 (PCR) Not Detected Parainfluenza 2 (PCR) Not Detected Parainfluenza 3 (PCR) Not Detected Parainfluenza 4 (PCR) Not Detected RSV (PCR) Not Detected RSV RNA Qual (PCR) Entero/Rhino (PCR) Detected A SARS-CoV-2 RNA (RT-PCR) Not Detected Assessment and Plan (1) COPD with acute exacerbation: Status: Acute Plan 47-year-old male past medical history of CHF with preserved ejection fraction, COPD, hypertension, diabetes, comes into the hospital with complaints of shortness of breath, cough, sputum production acute COPD exacerbation- has dyspnea, cough, increased sputum production started IV Solu-Medrol, DuoNeb p.r.n. as well as schedule hold steriods for now. monitor respiratory status CHF- not in exacerbation, euvolemic -continue home furosemide hypertension - stable - continue home antihypertensives diabetes with hyperglycemia fs in 500's likely steriods contibutin hold steriods. has insulin pump but recently couldnot get it -so placed on lantus /sliding scale coverage adjusted to home lantus /e sliding scale insulin,switched to dm diet. DVT prophylaxis:? Lovenox inaptient need:acute COPD exacerbation-continue nebs ,moniter respiratory status-not optimum yet ,dm with hyperglycemia -need monitering/insulin adjustment. Time Spent With Patient Time: Total time managing care of this patient today ____ minutes. Quality Stroke Does the patient have a stroke diagnosis?: No VTE Prior VTE?: No VTE Risk Level:: Medical - moderate - high VTE Device Contraindication: Treatment Not Indicated VTE Drug Contraindication: N/A - Med Ordered
[2023-06-26 11:32] LABS: Glucose, Whole Blood 372 mg/dL (60-115)
--- NOTE | 2023-06-26 14:41 | MHC.CM.PN ---
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
[2023-06-26 16:23] LABS: Glucose, Whole Blood 235 mg/dL (60-115)
--- NOTE | 2023-06-26 18:32 | HE.PHANOTE ---
Re: home medications Received a call from Dr. Ocasio saying he wanted to continue the patient's home medications but the computer wasn't allowing him to do so. He requested I continue all patient home meds unless they are already on them (insulin and nebulizer treatments were already ordered) and he specified if the patient was on any outpatient steroids to not continue them. Upon review of home med list, patient is not on home steroids. All home meds other than the insulins and nebulizers were continued per provider request.
[2023-06-26] MEDS: Fluticasone Propionate 100 MCG BLST.W.DEV 2 PUFF INHALE (19:37)
[2023-06-26 20:54] LABS: Glucose, Whole Blood 145 mg/dL (60-115)
[2023-06-26] MEDS: Sucralfate 1 GM TABLET PO (22:25)
[2023-06-26] MEDS: LORazepam 1 MG TABLET PO (22:25)
[2023-06-26] MEDS: Gabapentin 300 MG CAPSULE PO (22:25)
[2023-06-26] MEDS: Enoxaparin Sodium 40 MG/0.4 ML SYRINGE SUBCUT (22:28)
[2023-06-26] MEDS: hydrALAZINE HCl 50 MG TABLET 100 MG PO (22:44)
[2023-06-27 04:00] VITALS: BP 140/65; PULSE 84; RESP 18; TEMP 36.3; O2SAT 97
[2023-06-27] MEDS: Omeprazole 40 MG CAPSULE.DR PO (05:54)
[2023-06-27] MEDS: Furosemide 40 MG TABLET PO (05:54)
[2023-06-27 07:27] LABS: Anion Gap 14 (12-20); Blood Urea Nitrogen 31 mg/dL (9-16); Calcium 9.2 mg/dL (8.4-10.2); Carbon Dioxide 24 mmol/L (22-29); Chloride 108 mmol/L (96-108); Creatinine Clr Calc Pharmacy 59.9; Estimated Glomerular Filt Rate 58; Glucose Random 125 mg/dL (60-115); Potassium 4.8 mmol/L (3.3-5.1); Sodium 141 mmol/L (135-145)
--- NOTE | 2023-06-27 07:36 | P.DS_ITS ---
DS: Providers Provider Date of Service: 06/27/23 Date of admission: 06/25/23 21:49 Primary care physician: Zari Henry MD DS: Diagnosis Discharge Diagnosis (1) COPD with acute exacerbation: Status: Acute DS: Summary Hospital Course Hospital Course: Chief Complaint: SOB, body aches 47-year-old male past medical history of COPD, peripheral vascular disease, diabetes, congestive heart failure with preserved ejection fraction, hypertension, YARELIS, comes into the hospital with complaints of body aches as well as shortness of breath, cough, sputum production.? Symptoms started 2 days ago, denies any lower extremity edema, no orthopnea PND.? No recent travel or sick contacts Patient denies abdominal pain nausea or vomiting, no chest pain, no palpitation, no urinary symptoms and no lower extremity edema On arrival to the ED patient hemodynamically stable Labs are significant for WBC count of 12.4, hemoglobin of 13.2, hematocrit of 40.9, creatinine of 1.78 which is around his baseline, BNP of 35, Chest x-ray shows unremarkable exam Patient will be admitted for further management Hospital course: Patient was admitted and treated for exacerbation of copd due to adenovius with iv steroid, bronchodilators by Neb and has significantly im proved, breathing comofrtably on room air, at 96%. He will be discharged to complete 3 more days of steroid and continue use of usual inhalers and to follow up with PCP renetta week Time Spent with Patient Time attestation: Total time managing care of this patient today ____ minutes. Discharge coordination time: Greater than 30 minutes Quality: Safe Use of Opioids Does Pt have an Active Cancer Diagnosis on the Problem List?: No Quality: Stroke Does the patient have a stroke diagnosis?: No Physical Exam Vital Signs: Vital Signs: Last Vital Signs Temp 97.4 F 06/27/23 04:00 Pulse 84 06/27/23 04:00 Resp 18 06/27/23 04:00 BP 140/65 H 06/27/23 04:00 Pulse Ox 97 06/27/23 04:00 O2 Del Method Room Air 06/27/23 04:00 BMI result Body Mass Index 23.1 DS: Data Data Completed and Pending Completed studies during hospitalization [Text1]: Procedures Assistance with Respiratory Ventilation, Less than 24 Consecutive Hours, Continuous Positive Airway Pressure (04/17/23) Detoxification Services for Substance Abuse Treatment (09/07/22) Excision of Esophagus, Via Natural or Artificial Opening Endoscopic, Diagnostic (09/07/22) Excision of Stomach, Pylorus, Via Natural or Artificial Opening Endoscopic, Diagnostic (09/07/22) Labs on day of discharge: Laboratory Results - last 24 hr 06/26/23 06/26/23 06/26/23 05:17 07:40 08:24 Sodium Potassium Chloride Carbon Dioxide Anion Gap BUN Creatinine Estim Creat Clear Calc Estimated GFR POC Glucose 511 H* Random Glucose Estimat Average Glucose 200 Hemoglobin A1c % 8.6 H Calcium Respiratory Panel Mckeon See Note Adenovirus (Rapid PCR) Not Detected B.pert (TEM-PCR) Not Detected B.parapertussis DNA PCR Not Detected C. pneumoniae DNA (PCR) Not Detected Coronavirus OC43 (PCR) Not Detected Coronavirus HKU1 (PCR) Not Detected Coronavirus 229E (PCR) Not Detected Coronavirus NL63 (PCR) Not Detected Human Metapneumovir PCR Not Detected Influenza A (RT-PCR) Not Detected Influenza B (RT-PCR) Not Detected M. pneumoniae (PCR) Not Detected Parainfluenza 1 (PCR) Not Detected Parainfluenza 2 (PCR) Not Detected Parainfluenza 3 (PCR) Not Detected Parainfluenza 4 (PCR) Not Detected RSV (PCR) Not Detected Entero/Rhino (PCR) Detected A SARS-CoV-2 RNA (RT-PCR) Not Detected 06/26/23 06/26/23 06/26/23 11:13 16:18 20:50 Sodium Potassium Chloride Carbon Dioxide Anion Gap BUN Creatinine Estim Creat Clear Calc Estimated GFR POC Glucose 372 H* 235 H 145 H Random Glucose Estimat Average Glucose Hemoglobin A1c % Calcium Respiratory Panel Mckeon Adenovirus (Rapid PCR) B.pert (TEM-PCR) B.parapertussis DNA PCR C. pneumoniae DNA (PCR) Coronavirus OC43 (PCR) Coronavirus HKU1 (PCR) Coronavirus 229E (PCR) Coronavirus NL63 (PCR) Human Metapneumovir PCR Influenza A (RT-PCR) Influenza B (RT-PCR) M. pneumoniae (PCR) Parainfluenza 1 (PCR) Parainfluenza 2 (PCR) Parainfluenza 3 (PCR) Parainfluenza 4 (PCR) RSV (PCR) Entero/Rhino (PCR) SARS-CoV-2 RNA (RT-PCR) 06/27/23 05:59 Sodium 141 Potassium 4.8 Chloride 108 Carbon Dioxide 24 Anion Gap 14 BUN 31 H Creatinine 1.31 Estim Creat Clear Calc 59.9 Estimated GFR 58 POC Glucose Random Glucose 125 H Estimat Average Glucose Hemoglobin A1c % Calcium 9.2 Respiratory Panel Mckeon Adenovirus (Rapid PCR) B.pert (TEM-PCR) B.parapertussis DNA PCR C. pneumoniae DNA (PCR) Coronavirus OC43 (PCR) Coronavirus HKU1 (PCR) Coronavirus 229E (PCR) Coronavirus NL63 (PCR) Human Metapneumovir PCR Influenza A (RT-PCR) Influenza B (RT-PCR) M. pneumoniae (PCR) Parainfluenza 1 (PCR) Parainfluenza 2 (PCR) Parainfluenza 3 (PCR) Parainfluenza 4 (PCR) RSV (PCR) Entero/Rhino (PCR) SARS-CoV-2 RNA (RT-PCR) Preliminary micro results at discharge 06/25/23 20:07 Blood Culture - Preliminary Blood - Venous No growth after 24 hours. 06/25/23 19:54 Blood Culture - Preliminary Blood - Venous No growth after 24 hours. Discharge Plan Discharge Anticipated Discharge Date/Time: 06/27/23 11:13 Patient Disposition: Home, Self-Care Discharge Diagnosis: Acute copd exacerbation due to adenovirus bronchitis Referrals: Zari Henry MD [Primary Care Provider] - 1 Week Discharge Medications: New prednisone 20 mg tablet 40 mg PO DAILY Qty: 6 0RF Continued hydralazine 100 mg tablet 100 mg PO TID 30 Days Qty: 90 5RF sucralfate 1 gram Tablet 1 g PO QIDACHS Qty: 120 0RF ipratropium-albuterol 0.5 mg-3 mg(2.5 mg base)/3 mL solution for nebulization 3 ml inhalation Q8H PRN (Reason: Shortness Of Breath Or Wheezing) ferrous sulfate 324 mg (65 mg iron) tablet,delayed release (DR/EC) 1 tab PO DAILY trazodone 50 mg tablet 50 - 100 mg PO BEDTIME insulin lispro 100 unit/mL solution See Rx Instructions .ROUTE .COMPLEX Rx Instructions: insulin pump; use up to 100 units daily; OMNIPOD delivers 0.75 units per hour PATIENT HAS NOT BEEN ABLE TO REFILL RECENTLY. USING LANTUS AND LISPRO TO COVER albuterol sulfate 90 mcg/actuation HFA aerosol inhaler 2 puff INHALATION Q6H PRN (Reason: Shortness Of Breath Or Wheezing) escitalopram oxalate 10 mg tablet 10 mg PO DAILY amlodipine 10 mg Tablet 10 mg PO DAILY 30 Days Qty: 30 0RF Protocol: Hold for SBP< HOLD for SBP < : 90 atorvastatin 40 mg tablet 40 mg PO DAILY gabapentin 300 mg capsule 300 mg PO TID Hold Instructions: Resume on 11/07/22. metoprolol succinate 100 mg tablet extended release 24 hr 100 mg PO DAILY omeprazole 40 mg capsule,delayed release(DR/EC) 40 mg PO DAILY@0630 magnesium oxide 400 mg (241.3 mg magnesium) Tablet 400 mg PO BIDPC Qty: 60 0RF lorazepam [Ativan] 1 mg tablet 1 mg PO BEDTIME PRN (Reason: sleep) Qty: 14 0RF insulin lispro 100 unit/mL insulin pen See Rx Instructions .ROUTE .COMPLEX Rx Instructions: UNDER 100 = 0 UNITS 101-150 6 UNITS 151-200 8 UNITS 201-250 10 UNITS 251-300 12 UNITS 301 - 350 14 UNITS 351 - 400 16 UNITS OVER [address] fluticasone propionate [Flovent HFA] 110 mcg/actuation HFA aerosol inhaler 2 puff inhalation BID insulin glargine [Lantus Solostar U-100 Insulin] 100 unit/mL (3 mL) insulin pen 27 unit subcut DAILY furosemide 20 mg tablet 20 mg PO DAILY@1630 furosemide 40 mg tablet 40 mg PO DAILY@0630 aspirin 81 mg tablet,delayed release (DR/EC) 81 mg PO DAILY Discharge Orders: Discharge Order (Routine); Ordered 06/27/23 Ordered By: Roger Stephen Diet: Diabetic diet Activity on Discharge: As tolerated Stand Alone Forms: Patient Portal Discharge page Care Plan Goals: recovery from copd Health Concerns: copd adenovirus bronchitis Plan of Treatment: take prednisone 40 mg daily, and use inhalers as recommended and follow up with your doctor in a week Assessment: as above
[2023-06-27 07:38] VITALS: BP 137/78; PULSE 63; RESP 16; TEMP 36; O2SAT 96
[2023-06-27 07:38] LABS: Glucose, Whole Blood 158 mg/dL (60-115)
[2023-06-27] MEDS: Doxycycline Hyclate 100 MG in 0.9 % Sodium Chloride 250 ML 166.67 MG IV (08:07)
[2023-06-27] MEDS: Insulin Glargine,Hum.rec.anlog 100 UNIT/ML 10 ML VIAL 27 UNIT SUBCUT (08:08)
[2023-06-27] MEDS: Insulin Lispro 100 UNIT/ML 3 ML VIAL SUBCUT (08:08)
[2023-06-27] MEDS: Aspirin Enteric Coated 81 MG TABLET.DR PO (08:09)
[2023-06-27] MEDS: Escitalopram Oxalate 10 MG TABLET PO (08:09)
[2023-06-27] MEDS: Gabapentin 300 MG CAPSULE PO (08:09)
[2023-06-27] MEDS: Atorvastatin Calcium 40 MG TABLET PO (08:09)
[2023-06-27] MEDS: Magnesium Oxide 400 MG TABLET PO (08:09)
[2023-06-27] MEDS: 0.9 % Sodium Chloride Flush 3 ML SYRINGE IVFLUSH (08:09)
[2023-06-27] MEDS: amLODIPine Besylate 10 MG TABLET PO (08:09)
[2023-06-27] MEDS: hydrALAZINE HCl 50 MG TABLET 100 MG PO (08:09)
[2023-06-27] MEDS: Sucralfate 1 GM TABLET PO (08:09)
[2023-06-27] MEDS: Ferrous Sulfate 324 MG TABLET.DR PO (08:09)
[2023-06-27] MEDS: Metoprolol Succinate ER 100 MG TAB.ER.24H PO (08:09)
[2023-06-27] MEDS: Fluticasone Propionate 100 MCG BLST.W.DEV 2 PUFF INHALE (08:34)
[2023-06-27] MEDS: Albuterol/Iprat 2.5/0.5MG 3 ML AMPUL.NEB INHALE (08:34)
[2023-06-27 08:37] VITALS: PULSE 81; RESP 16; O2SAT 99
[2023-06-27 11:21] LABS: Glucose, Whole Blood 317 mg/dL (60-115)
--- NOTE | 2023-06-27 11:48 | MHC.CM.PN ---
Patient is discharged to home self care. He has arranged for transport home.
== END 2023-06-27 11:51 | disposition home or self-care (01) | DRG 140 ==
LOC: HO.ED 21:15 → HO.EDOVER 23:15 → HO.S3 06-26 05:20
PROVIDERS: Internal Medicine; Admitting Provider Internal Medicine; Emergency Provider Emergency Medicine; PCP Internal Medicine; Visit Provider Internal Medicine
DX: J44.1 Chronic obstructive pulmonary disease with (acute) exacerbation (principal); E11.22 Type 2 diabetes mellitus with diabetic chronic kidney disease; E11.51 Type 2 diabetes mellitus with diabetic peripheral angiopathy without gangrene; B97.0 Adenovirus as the cause of diseases classified elsewhere; I13.0 Hypertensive heart and chronic kidney disease with heart failure and stage 1 through stage 4 chronic kidney disease, or unspecified chronic kidney disease; I50.32 Chronic diastolic (congestive) heart failure; N18.30 Chronic kidney disease, stage 3 unspecified; F17.210 Nicotine dependence, cigarettes, uncomplicated; Z71.6 Tobacco abuse counseling; G47.33 Obstructive sleep apnea (adult) (pediatric); E11.65 Type 2 diabetes mellitus with hyperglycemia; F41.9 Anxiety disorder, unspecified; Z99.81 Dependence on supplemental oxygen; Z20.822 Contact with and (suspected) exposure to COVID-19; Z79.4 Long term (current) use of insulin; Z79.82 Long term (current) use of aspirin; Z79.899 Other long term (current) drug therapy
CPT/HCPCS: 0241U; 36415; 71045; 80048; 80076; 82947; 83036; 83605; 83690; 83880; 84484; 85025; 85379; 87040; 87633; 93005; 94640; 94660; 99221; 99285; J1650; J2543; J2930; J3475

== ENCOUNTER → 2023-06-25 21:49 | Outpatient (BNV) | payer OTHER, SELFPAY | PROVIDERS: Admitting Provider Internal Medicine; Emergency Provider Emergency Medicine; PCP Internal Medicine; Visit Provider Internal Medicine | DX: J44.1 Chronic obstructive pulmonary disease with (acute) exacerbation (principal) | CPT/HCPCS: 99223; 99239; 99499 ==

== ENCOUNTER 2023-08-15 13:25 | Outpatient (AMB) | payer OTHER, SELFPAY ==
[2023-08-15 13:28] VITALS: BP 120/64; BMI 23.3
--- NOTE | 2023-08-15 13:28 | MHC.OFFVIS ---
Intake Vital Signs 08/15/23 13:28 Height 5 ft 5 in Weight 139 lb 12.369 oz BMI 23.3 BP 120/64 Blood Pressure Location Lt brachial Position Sitting Intake Visit Reasons: 3 month follow up Intake Note: 3 month fu patient felling tired and some s/b Allergies [facility] [[facility] Allergy (Verified 08/15/23 13:31) Unknown metformin [METFORMIN] Adverse Reaction (Mild, Verified 08/15/23 13:31) DIARRHEA, nausea and vomiting Medication List - Last Reconciled 08/15/23 by Alissa Wiggins NP-C albuterol sulfate 90 mcg/actuation 2 puffs inhalation Q6H PRN amlodipine 10 mg See Protocol PO DAILY 30 days aspirin 81 mg PO DAILY atorvastatin 40 mg PO DAILY escitalopram oxalate 10 mg PO DAILY ferrous sulfate 1 tab PO DAILY fluticasone propionate 110 mcg/actuation (Flovent HFA) 2 puffs inhalation BID furosemide 40 mg PO DAILY@0630 gabapentin 300 mg PO TID hydralazine 100 mg PO TID 30 days insulin glargine (Lantus Solostar U-100 Insulin) 27 units subcut DAILY insulin lispro insulin pump; use up to 100 units daily; OMNIPOD delivers 0.75 units per hour PATIENT HAS NOT BEEN ABLE TO REFILL RECENTLY. USING LANTUS AND LISPRO TO COVER insulin lispro UNDER 100 = 0 UNITS 101-150 6 UNITS 151-200 8 UNITS 201-250 10 UNITS 251-300 12 UNITS 301 - 350 14 UNITS 351 - 400 16 UNITS OVER 400 CALL ipratropium-albuterol 0.5 mg-3 mg(2.5 mg base)/3 mL 3 mL inhalation Q8H PRN lorazepam (Ativan) 1 mg PO BEDTIME PRN magnesium oxide 400 mg PO BIDPC metoprolol succinate ER 100 mg PO DAILY omeprazole 40 mg PO DAILY@0630 sucralfate 1 g PO QIDACHS trazodone 50 - 100 mg PO BEDTIME HPI 3 month follow up HPI Details Ciara is a 48-year-old male with past medical history of diabetes, hyperlipidemia, hypertension, obstructive sleep apnea with CPAP use, COPD, alcohol abuse,? heart failure with preserved EF who was admitted 2 times to in March with shortness of breath, leg edema and treated for acute on chronic diastolic heart failure. He was admitted again at the end of May with shortness of breath and treated for COPD exacerbation. On discharge he was sent home with Lasix 40 mg the morning and 20 mg in the afternoon. Today he reports that he has been doing okay since his hospital discharge. He does have some shortness of breath and coughing at times. He does not have any of the solution for his nebulizer at home. 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 He denies PND, orthopnea or edema. No chest discomfort at rest or with activity. No palpitations, presyncope, syncope. Taking meds as directed. [facility] Medical History Congestive heart failure CKD (chronic kidney disease) stage 1, GFR 90 ml/min or greater Chronic heart failure with preserved ejection fraction (HFpEF) Depression COPD exacerbation YARELIS (obstructive sleep apnea) CHF exacerbation Hypoxia KELVIN (acute kidney injury) Acute respiratory failure Uncontrolled hypertension Acute on chronic diastolic (congestive) heart failure Acute on chronic anemia Hyperglycemia due to type 2 diabetes mellitus YARELIS (obstructive sleep apnea) Congestive heart failure Anxiety HLD (hyperlipidemia) Diabetes Hypercholesteremia HTN (hypertension) Asthma PAD (peripheral artery disease) Surgical History S/P angiogram of extremity Family History Father Alzheimer disease CAD (coronary artery disease) Social History Household Members: Significant Other Housing: Apartment Do you presently have visiting nurse or other home services: No (stopped VNA service aprox 2 weeks ago) Unable to assess alcohol history related to: Unknown Alcohol intake: current Alcohol intake frequency: holidays/special occasions only Alcohol type: beer Patient Tobacco Use Status: Never used Tobacco Tobacco use type: Cigarette Cigarettes Per Day: 10 Years Smoked: >30 e-Cigarette/Vaping Use: Never Used Second Hand Smoke Exposure: No Advance Directives Date on File: 06/21/21 service: No Current occupational status: disabled Review of Systems Const All systems reviewed & are unremarkable except as noted in HPI and below ENT Denies dizziness Card Denies chest pain, Denies chest pain at rest, Denies chest pain with activity, Denies rapid heart rate, Denies pedal edema, Denies edema, Denies leg edema, Denies lightheadedness, Denies palpitations, Denies dyspnea, Reports dyspnea on exertion and Denies orthopnea Resp Denies cough, Denies dyspnea and Reports dyspnea on exertion GI Denies hematochezia and Denies change in stool character Musc Denies abnormal gait, Denies limited range of motion, Denies muscle cramps, Denies muscle weakness, Denies numbness, Denies radiating pain into limb, Denies stiffness and Denies tingling Neuro Denies abnormal gait, Denies dizziness, Denies numbness and Denies tingling Endo Denies palpitations Physical Exam Vital Signs: Last Vital Signs BP 120/64 08/15/23 13:28 BMI result Body Mass Index 23.3 Const General: cooperative, healthy appearing, comfortable and no acute distress Orientation/consciousness: patient oriented x3 Neck Neck: Yes normal visual inspection Resp Effort & Inspection: normal respiratory effort Auscultation: clear to auscultation bilaterally, no crackles, no rales, no rhonchi and no wheezes Cardio Jugular venous distension: no JVD Rate: regular rate Rhythm: regular rhythm Heart sounds: S1 normal heart sound present, S2 normal heart sound present, no murmurs and no rubs Neuro General: patient oriented x3 Extrem General: Yes normal to inspection Psych Appearance: grossly normal Mental Status: mental status grossly normal Speech and movement: Normal speech and movement present Assessment & Plan Assessment & Plan (1) Congestive heart failure: Code(s): I50.9 - Heart failure, unspecified Qualifiers: Heart failure type: diastolic Plan: History of heart failure with preserved EF. Recurrent admissions over the last year with Congestive heart failure and KELVIN issues. Two recent admissions March 2023 and diuretics increased, last discharge was sent home with Lasix 40 mg b.i.d. Last Echocardiogram in our system on 08/01/2022 showed EF is 60-65%, normal valves and normal RV. He was admitted again May 2023 however that admission was for COPD exacerbation. The discharge summary states Lasix will be 40 mg in the morning and 20 mg in the afternoon. Most recent labs done on 06/27/2023 showed potassium 4.8 and creatinine 1.31. Today he reports some shortness of breath and coughing that he relates to COPD. He has no wheezing on examination. He does not appear fluid overloaded. He drinks alcohol routinely in informed how this can affect his heart. Signs and symptoms of heart failure reviewed with him. At present will continue on Lasix without change. Cardiology follow-up in 6 months, sooner if needed. ED care if ever needed for symptoms. (2) YARELIS (obstructive sleep apnea): Code(s): G47.33 - Obstructive sleep apnea (adult) (pediatric) Plan: Tells me that he wears mask at night (3) HTN (hypertension): Code(s): I10 - Essential (primary) hypertension Qualifiers: Hypertension type: primary hypertension Qualified Code(s): I10 - Essential (primary) hypertension Plan: Well controlled at this time. No med changes made. Continue amlodipine, Lasix, hydralazine, metoprolol. (4) Hospital discharge follow-up: Code(s): Z09 - Encounter for follow-up examination after completed treatment for conditions other than malignant neoplasm Coding Level of Care Code Est Pt Level 4 (22470) Diagnoses Congestive heart failure I50.9 Heart failure type: diastolic YARELIS (obstructive sleep apnea) G47.33 Primary hypertension I10 Hypertension type: primary hypertension Hospital discharge follow-up Z09 Time Spent (min) 28
== END 2023-08-15 13:55 | disposition home or self-care (01) ==
PROVIDERS: PCP Internal Medicine; Visit Provider Nurse Practitioner Family
DX: I50.9 Heart failure, unspecified (principal); G47.33 Obstructive sleep apnea (adult) (pediatric); I10 Essential (primary) hypertension; Z09 Encounter for follow-up examination after completed treatment for conditions other than malignant neoplasm
CPT/HCPCS: 99214

== ENCOUNTER → 2023-08-15 13:25 | Outpatient (BNVA) | payer OTHER, SELFPAY | PROVIDERS: PCP Internal Medicine; Visit Provider Nurse Practitioner Family | DX: I13.0 Hypertensive heart and chronic kidney disease with heart failure and stage 1 through stage 4 chronic kidney disease, or unspecified chronic kidney disease (principal); I50.33 Acute on chronic diastolic (congestive) heart failure; N18.1 Chronic kidney disease, stage 1; N17.9 Acute kidney failure, unspecified; G47.33 Obstructive sleep apnea (adult) (pediatric); Z87.891 Personal history of nicotine dependence | CPT/HCPCS: 99212 ==

== ENCOUNTER 2023-10-04 22:52 | Emergency (ER) | payer OTHER, SELFPAY ==
--- NOTE | 2023-10-04 | ECG_ITS ---
Test Reason : CP Blood Pressure : / mmHG Vent. Rate : 078 BPM Atrial Rate : 078 BPM P-R Int : 110 ms QRS Dur : 080 ms QT Int : 398 ms P-R-T Axes : 063 050 060 degrees QTc Int : 453 ms Artifact in tracing Sinus rhythm with short [place] with Premature supraventricular complexes Nonspecific ST abnormality Abnormal ECG When compared with ECG of 25-JUN-2023 19:33, Premature supraventricular complexes are now Present Vent. rate has increased BY 27 BPM T wave inversion no longer evident in Lateral leads Referred By: Generic ED Physician Electronically Signed By:JESSICA LY
--- NOTE | ~2023-10-04 | XR_ITS ---
EXAMINATION: XR CHEST CLINICAL INFORMATION: Left chest pain. COMPARISON: 06/25/2023 TECHNIQUE: Frontal view of the chest was obtained. FINDINGS: No significant abnormality is noted involving the heart, lungs, mediastinum, bony thorax or soft tissues. XR/XR chest 1V IMPRESSION: Unremarkable examination.
[2023-10-04 23:07] VITALS: BP 194/79; PULSE 66; RESP 20; TEMP 37.1; O2SAT 100; BMI 23.3
--- NOTE | 2023-10-04 23:14 | MHC.EDTECH ---
Patient brought in from the waiting room,EKG taken per order,Labs and SARS/FLU/RSV obtained and sen to lab,patient brought back to [facility]
[2023-10-04 23:16] LABS: Hematocrit 42.4 % (42.0-52.0); Hemoglobin 13.7 g/dl (14.0-18.0); Mean Corpuscular HGB Conc 32.3 g/dl (31.0-36.0); Mean Corpuscular Hemoglobin 26.9 pg (27.0-33.0); Mean Corpuscular Volume 83.1 fL (80.0-98.0); Mean Platelet Volume 11.2 fL (9.4-12.4); Platelet Count 233 X10*3/uL (160-400); White Blood Count 12.1 X10*3/uL (4.8-10.8)
[2023-10-04 23:34] LABS: Alanine Aminotransferase 24 U/L (0-40); Albumin Level 4.3 g/dL (3.5-5.0); Alkaline Phosphatase 110 U/L (39-117); Anion Gap 17 (12-20); Aspartate Amino Transferase 20 U/L (5-37); Bilirubin Total 0.3 mg/dL (0.0-1.0); Blood Urea Nitrogen 31 mg/dL (9-16); Calcium 9.5 mg/dL (8.4-10.2); Carbon Dioxide 22 mmol/L (22-29); Chloride 104 mmol/L (96-108); Creatinine Clr Calc Pharmacy 43.4; Estimated Glomerular Filt Rate 41; Glucose Random 260 mg/dL (60-115); Potassium 4.2 mmol/L (3.3-5.1); Sodium 139 mmol/L (135-145); Total Protein 7.9 g/dL (6.5-8.0)
[2023-10-04 23:41] LABS: Troponin-I High Sensitivity < 2.7 ng/L (<3.5-35.0)
[2023-10-04 23:53] LABS: Influenza A PCR NEGATIVE (Negative); Influenza B PCR NEGATIVE (Negative); Resp Syncy Virus RNA Qual PCR NEGATIVE (Negative); SARS COV2 PCR INHOUSE NEGATIVE (Negative)
[2023-10-05 00:23] VITALS: BP 158/64; PULSE 65; RESP 14; TEMP 37; O2SAT 96
--- NOTE | 2023-10-05 00:40 | ED.CHESTPAIN ---
HPI - Chest Pain General Chief Complaint: Chest Pain Stated Complaint: chest pain Time Seen by Provider: 10/05/23 00:27 Source: patient Mode of arrival: ambulatory Limitations: no limitations History of Present Illness HPI narrative: Patient comes to the emergency room complaining of left-sided chest pain for approximately 24 hours now. Patient states that the pain on the left side is reproducible, radiates from the front of the chest towards the back. Patient denies any recent injury. Patient denies shortness of breath. Patient states that he is recovering from pneumonia from couple of months ago, grating better. But he has been coughing quite a bit over last couple months. Patient denies fever or chills. No sputum production. No wheezing. No abdominal pain Related Data Home Medications Medication Instructions Recorded Confirmed albuterol sulfate 90 mcg/actuation 2 puff inhalation Q6H PRN 08/01/22 08/15/23 aerosol inhaler Shortness Of Breath Or Wheezing escitalopram oxalate 10 mg tablet 10 mg PO DAILY 08/01/22 08/15/23 insulin lispro 100 unit/mL See Rx Instructions .Route .COMPLEX 08/01/22 08/15/23 subcutaneous solution trazodone 50 mg tablet 50 - 100 mg PO BEDTIME 08/01/22 08/15/23 aspirin 81 mg tablet,delayed 81 mg PO DAILY 10/06/22 08/15/23 release atorvastatin 40 mg tablet 40 mg PO DAILY 10/06/22 08/15/23 gabapentin 300 mg capsule 300 mg PO TID 10/06/22 08/15/23 metoprolol succinate 100 mg 100 mg PO DAILY 10/06/22 08/15/23 tablet,extended release 24 hr omeprazole 40 mg capsule,delayed 40 mg PO DAILY@0630 10/06/22 08/15/23 release ipratropium 0.5 mg-albuterol 3 mg 3 ml inhalation Q8H PRN Shortness 11/03/22 08/15/23 (2.5 mg base)/3 mL nebulization Of Breath Or Wheezing soln ferrous sulfate 324 mg (65 mg 1 tab PO DAILY 12/22/22 08/15/23 iron) tablet,delayed release insulin lispro 100 unit/mL See Rx Instructions .Route .COMPLEX 04/17/23 08/15/23 subcutaneous pen fluticasone propionate 110 2 puff inhalation BID 06/26/23 08/15/23 mcg/actuation HFA aerosol inhaler (Flovent HFA) furosemide 40 mg tablet 40 mg PO DAILY@0630 06/26/23 06/26/23 insulin glargine 100 unit/mL (3 27 unit subcut DAILY 06/26/23 08/15/23 mL) subcutaneous pen (Lantus Solostar U-100 Insulin) Previous Rx's Medication Instructions Recorded amlodipine 10 mg tablet 10 mg PO DAILY 30 days #30 tabs 08/07/22 magnesium oxide 400 mg (241.3 mg 400 mg PO BIDPC #60 tabs 08/20/22 magnesium) tablet sucralfate 1 gram tablet 1 g PO QIDACHS #120 tabs 09/10/22 lorazepam 1 mg tablet (Ativan) 1 mg PO BEDTIME PRN sleep #14 tabs 02/27/23 hydralazine 100 mg tablet 100 mg PO TID 30 days #90 tabs 05/09/23 Allergies Allergy/AdvReac Type Severity Reaction Status Date / Time dulaglutide [From [facility]] Allergy Unknown Verified 08/15/23 13:31 metformin [METFORMIN] AdvReac Mild DIARRHEA, Verified 08/15/23 13:31 nausea and vomiting Review of Systems Review of Systems: Constitutional : No Weight loss, No Fever, No Chills, No Night Sweats, No Fatigue, No Malaise ENT/Mouth : No Hearing loss, No Ear Pain, No Nasal Congestion, No Sinus Pain, No Hoarseness, No sore throat, No Rhinorrhea, No Swallowing Difficulty Eyes: No Eye Pain, No Swelling, No Redness, No Foreign Body, No Discharge, No Vision Changes Cardiovascular : Complaining of left-sided chest pain radiating from the front to the back for the last 24 hours. No SOB, No Dyspnea on Exertion, No Orthopnea, No Edema, No Palpitations Respiratory : Complaining of dry Cough for couple of months, No Sputum, No Wheezing, No Smoke Exposure, No Dyspnea Gastrointestinal : No Nausea, No Vomiting, No Diarrhea, No Constipation, No abdominal Pain, No Hematochezia, No Melena Genitourinary : no irregular bleeding, No Dysuria, No Urinary Frequency, No Hematuria, No Urinary Incontinence, No Urgency, No Flank Pain, No Urinary Flow Changes, No Hesitancy Musculoskeletal : No joint pain, No Myalgias, No Joint Swelling Skin : No Skin Lesions, No rash Neuro : No Weakness, No Numbness, No Paresthesias, No Loss of Consciousness, No Dizziness, No Headache Psych : No Anxiety/Panic, No Depression, No SI/HI/AH/VH, No Social Issues, Heme/Lymph: No Bruising, No Bleeding,No Lymphadenopathy Endocrine : No Polyuria, No Polydipsia, No Temperature Intolerance [facility] Past Medical History Medical History Congestive heart failure CKD (chronic kidney disease) stage 1, GFR 90 ml/min or greater Chronic heart failure with preserved ejection fraction (HFpEF) Depression COPD exacerbation YARELIS (obstructive sleep apnea) CHF exacerbation Hypoxia KELVIN (acute kidney injury) Acute respiratory failure Uncontrolled hypertension Acute on chronic diastolic (congestive) heart failure Acute on chronic anemia Hyperglycemia due to type 2 diabetes mellitus YARELIS (obstructive sleep apnea) Congestive heart failure Anxiety HLD (hyperlipidemia) Diabetes Hypercholesteremia HTN (hypertension) Asthma PAD (peripheral artery disease) Surgical History S/P angiogram of extremity Family History Family History Father Alzheimer disease CAD (coronary artery disease) Social History Social History Household Members: Significant Other Housing: Apartment Do you presently have visiting nurse or other home services: No (stopped VNA service aprox 2 weeks ago) Unable to assess alcohol history related to: Unknown Alcohol intake: never Comment: preop baseline abd discomfort Patient Tobacco Use Status: Never used Tobacco Tobacco use type: Cigarette Cigarettes Per Day: 10 Years Smoked: >30 Smoked in Last 30 Days: No e-Cigarette/Vaping Use: Never Used Second Hand Smoke Exposure: No Use of substances other than those prescribed or required for medical reasons: No Advance Directives: Yes Advance Directives on File: Yes Advance Directives Date on File: 06/21/21 service: No Current occupational status: disabled Physical Exam Vital Signs: Vital Signs: Last Vital Signs Temp 98.6 F 10/05/23 00:23 Pulse 65 10/05/23 00:23 Resp 14 10/05/23 00:23 BP 158/64 H 10/05/23 00:23 Pulse Ox 96 10/05/23 00:23 O2 Del Method Room Air 10/05/23 00:23 BMI result Body Mass Index 23.3 Const: Other: Appearance: Alert. Oriented X3. No acute distress. Eyes: Pupils equal, round and reactive to light. ENT: Pharynx normal. Neck: Normal inspection. Neck supple. No lymph nodes noted. No crepitus CVS: Normal heart rate and rhythm. Pulses normal. Normal S1 and S2 Respiratory: No respiratory distress. Breath sounds normal. No Wheezing. No rales Abdomen: Soft and nontender. No rigidity. No distention. Skin: Skin warm and dry. Normal skin color. Normal skin turgor. Extremities: No lower extremity edema. No Lacerations. No Rash Neuro: Oriented X 3. No motor deficit. No sensory deficit. Moving all extremities. No slurred speech. CN 2 through 12 grossly intact Psych: calm, cooperative, normal affect Medical Decision Making Medical Decision Making [facility] Narrative: -my interpretation of labs, Hematology at baseline, chemistry shows a creatinine of 1.79, patient has history of chronic kidney disease, baseline approximately between 1.6-1.7. Troponin 1. Is negative troponin 2. Is negative -chest x-ray interpretation, no pneumonia, no fractured ribs. -patient's source of pain is likely musculoskeletal rather than cardiac. -my interpretation of EKG, normal sinus rhythm, heart rate 78, no ST segment depression or elevation, no T-wave inversion, QTC 453. EKGs are not crossing over to our system Differential Diagnosis Differential Diagnoses: The differential diagnosis associated with the presentation includes (ACS, anxiety, costochondritis, musculoskeletal pain) Admission/Observation Consideration of admission/observation: Escalation of care including admission/observation considered (Given patient's presentation and medical history, admission was considered) Lab Data [facility] Lab Attestation statement: I reviewed the patient's lab results. 10/04/23 23:07 10/04/23 23:07 Labs: Lab Results 10/04/23 10/04/23 12 Range/Units 23:07 23:12 02:28 WBC 12.1 H (4.8-10.8) X10*3/uL RBC 5.10 (4.60-5.80) X10*6/uL Hgb 13.7 L (14.0-18.0) g/dl Hct 42.4 (42.0-52.0) % MCV 83.1 (80.0-98.0) fL MCH 26.9 L (27.0-33.0) pg MCHC 32.3 (31.0-36.0) g/dl RDW 16.0 (11.0-16.0) % Plt Count 233 (160-400) X10*3/uL MPV 11.2 (9.4-12.4) fL Absolute Nucleated RBC 0.000 (0.0-0.012) X10*3/uL Nucleated RBC % (auto) 0.0 (0.0-0.2) /100WBC Sodium 139 (135-145) mmol/L Potassium 4.2 (3.3-5.1) mmol/L Chloride 104 (96-108) mmol/L Carbon Dioxide 22 (22-29) mmol/L Anion Gap 17 (12-20) BUN 31 H (9-16) mg/dL Creatinine 1.79 H (0.5-1.4) mg/dL Estim Creat Clear Calc 43.4 Estimated GFR 41 Random Glucose 260 H (60-115) mg/dL Calcium 9.5 (8.4-10.2) mg/dL Total Bilirubin 0.3 (0.0-1.0) mg/dL AST 20 (5-37) U/L ALT 24 (0-40) U/L Alkaline Phosphatase 110 (39-117) U/L Troponin I High Sens < 2.7 3.4 (<3.5-35.0) ng/L B-Natriuretic Peptide 144 H (<100) pg/mL Total Protein 7.9 (6.5-8.0) g/dL Albumin 4.3 (3.5-5.0) g/dL Influenza Type A (PCR) NEGATIVE (Negative) Influenza Type B (PCR) NEGATIVE (Negative) RSV RNA Qual (PCR) NEGATIVE (Negative) SARS-CoV-2 RNA (RT-PCR) NEGATIVE (Negative) Independent Interpretation I performed an independent interpretation of an: EKG and Plain X-Ray (My interpretation of chest x-ray: No infiltrate) Radiology Impression Discussion of test interpretation with radiology: I have reviewed the radiologist's reading. Radiologist Impression: FINDINGS: No significant abnormality is noted involving the heart, lungs, mediastinum, bony thorax or soft tissues. XR/XR chest 1V IMPRESSION: Unremarkable examination. Critical Care Time Critical Care Time Critical Care Time: Yes Total Critical Care Time: 60 Attestation: I have personally provided critical care time. Time includes review of lab data, radiology results, discussion with consultants, and monitoring for potential decompensation. Intervention performed as documented. Discharge Plan Discharge Clinical Impression: Atypical chest pain Patient Disposition: Home, Self-Care Instructions: Chest Pain (ED) Additional Instructions: Please follow-up with your primary care physician tomorrow. If you have any worsening or new symptoms, please return to the emergency room or call 911 Prescriptions: No Action hydralazine 100 mg tablet 100 mg PO TID 30 Days Qty: 90 5RF sucralfate 1 gram Tablet 1 g PO QIDACHS Qty: 120 0RF ipratropium-albuterol 0.5 mg-3 mg(2.5 mg base)/3 mL solution for nebulization 3 ml inhalation Q8H PRN (Reason: Shortness Of Breath Or Wheezing) ferrous sulfate 324 mg (65 mg iron) tablet,delayed release (DR/EC) 1 tab PO DAILY trazodone 50 mg tablet 50 - 100 mg PO BEDTIME insulin lispro 100 unit/mL solution See Rx Instructions .ROUTE .COMPLEX Rx Instructions: insulin pump; use up to 100 units daily; OMNIPOD delivers 0.75 units per hour PATIENT HAS NOT BEEN ABLE TO REFILL RECENTLY. USING LANTUS AND LISPRO TO COVER albuterol sulfate 90 mcg/actuation HFA aerosol inhaler 2 puff INHALATION Q6H PRN (Reason: Shortness Of Breath Or Wheezing) escitalopram oxalate 10 mg tablet 10 mg PO DAILY amlodipine 10 mg Tablet 10 mg PO DAILY 30 Days Qty: 30 0RF Protocol: Hold for SBP< HOLD for SBP < : 90 atorvastatin 40 mg tablet 40 mg PO DAILY gabapentin 300 mg capsule 300 mg PO TID Hold Instructions: Resume on 11/07/22. metoprolol succinate 100 mg tablet extended release 24 hr 100 mg PO DAILY omeprazole 40 mg capsule,delayed release(DR/EC) 40 mg PO DAILY@0630 magnesium oxide 400 mg (241.3 mg magnesium) Tablet 400 mg PO BIDPC Qty: 60 0RF lorazepam [Ativan] 1 mg tablet 1 mg PO BEDTIME PRN (Reason: sleep) Qty: 14 0RF insulin lispro 100 unit/mL insulin pen See Rx Instructions .ROUTE .COMPLEX Rx Instructions: UNDER 100 = 0 UNITS 101-150 6 UNITS 151-200 8 UNITS 201-250 10 UNITS 251-300 12 UNITS 301 - 350 14 UNITS 351 - 400 16 UNITS OVER [address] fluticasone propionate [Flovent HFA] 110 mcg/actuation HFA aerosol inhaler 2 puff inhalation BID insulin glargine [Lantus Solostar U-100 Insulin] 100 unit/mL (3 mL) insulin pen 27 unit subcut DAILY furosemide 40 mg tablet 40 mg PO DAILY@0630 aspirin 81 mg tablet,delayed release (DR/EC) 81 mg PO DAILY
--- OUTSIDE RECORDS SUMMARY | 2023-10-05 00:44 | XMS_ITS | Continuity of Care Document ---
Author Name Unknown Organization [facility] ter Address [address] [place] [id number]- Care Team Providers Care Editorial Manager Name Role Phone Not on Staff, PCP Primary Care Physician Unavail able Encounter [facility] Date(s): 04/10/23 - 04/12/[address] [address]- Encounter Diagnosis CHF exacerbation(Final) - 04/10/23 Hypertension(Final) - 04/10/23 Peripheral artery disease(Final) - 04/10/23 Discharge Disposition: A-D/C Home Attending Physician: Lam MICHELLE, Homer Short Admitting Physician: Valerie Montoya MD Referring Physician: Not on Staff, Referring MD Allergies, Adverse Reactions, Alerts Substance Reaction Severity Status metFORMIN Active Trulicity Active Immunizations Given and Recorded Vaccine Date Status Refusal Reason influenza virus vaccine, inactivated 07/22/22 Give n Medications Albuterol (Eqv-Proventil HFA) 90 mcg/inh inhalation aerosol 2 puffs, Inhalation, Every 6 hours, # 6.7 Gm, 0 Refills, Maintenance, 07/25/22 15:49:00 EDT, [facility], Partial fill upon patient request if the prescription is for a schedule II opioid drug., 165, cm, 04/11/22 8:29:00 EDT, Height, 59,... Start Date: 07/25/22 Status: Ordered amLODIPine 10 mg oral tablet 10 mg, 1, tablet, By Mouth, Daily, # 30 tablet, Refills 0, Tot. Refills 0, Maintenance, 04/11/22 11:16:00 EDT, Route to Pharmacy Electronically, [facility], Partial fill upon patient request if the prescription is for a schedule II opioi... Start Date: 04/11/22 Status: Ordered amLODIPine 10 mg oral tablet 10 mg, Tablet, By Mouth, 04/12/23 9:00:00 EDT Start Date: 04/12/23 Stop Date: 04/12/23 Status: Completed aspirin 81 mg oral delayed release tablet 81 mg, 1, tablet, By Mouth, Daily, # 30 tablet, Refills 0, Maintenance, 04/10/23 22:37:00 EDT, Partial fill upon patient request if the prescription is for a schedule II opioid drug. Start Date: 04/10/23 Status: Ordered BMP and UA in 5 days BMP and UA in 5 days, See Instructions, # 1 each, Refills 0, Tot. Refills 0, Maintenance, Please repeat the blood work and urine study, And follow up with your PCP. Thanks, 04/11/22 11:38:00 EDT, Supply Start Date: 04/11/22 Status: Ordered cefadroxil 500 mg oral capsule 1 capsule = 500 mg, By Mouth, Every 12 hours, for 7 days, # 14 capsule, 0 Refills, Acute 04/19/23 11:07:00 EDT, 04/12/23 11:07:00 EDT, Capsule, [facility], Partial fill upon patient request if the prescription is for a schedule II opioid... Start Date: 04/12/23 Stop Date: 04/19/23 Status: Ordered escitalopram 10 mg oral tablet 1 tablet = 10 mg, By Mouth, Daily, # 90 tablet, 0 Refills, Maintenance, 04/10/22 15:54:00 EDT, Tablet, Partial fill upon patient request if the prescription is for a schedule II opioid drug. Start Date: 04/10/22 Status: Ordered gabapentin 300 mg oral capsule 300 mg, 1, capsule, By Mouth, 3 times a day, # 90 capsule, Refills 5, Maintenance, 04/07/22 22:36:00 EDT, Partial fill upon patient request if the prescription is for a schedule II opioid drug. Start Date: 04/07/22 Status: Ordered gabapentin 300 mg oral capsule 300 mg, Capsule, By Mouth, 04/12/23 9:00:00 EDT Start Date: 04/12/23 Stop Date: 04/12/23 Status: Completed hydrALAZINE 25 mg oral tablet 50 mg, 2, tablet, By Mouth, 3 times a day, continue it until lisinopril is held off. Once lisinopril resumed, stop this medication, # 84 tablet, Refills 0, Tot. Refills 0, Maintenance, 04/11/22 11:24:00 EDT, Route to Pharmacy Electronically, [facility]... Start Date: 04/11/22 Stop Date: 04/25/22 Status: Ordered insulin lispro 100 u/ml subcutaneous injection 7-15 units, Subcutaneous Injection, 3 times a day before meals, << Sliding Scale Comments >> 100 - 129 7 units Call if less than 70 130 - 159 9 units 160 - 189 11 units 190 - 219 13 - 249 15 units Call if greater than 400 ... Start Date: 04/12/23 Stop Date: 04/13/23 Status: Ordered Lasix 20 mg oral tablet 20 mg, 1, tablet, By Mouth, Daily at bedtime, # 30 tablet, Refills 0, Maintenance, 04/10/23 22:36:00 EDT, Partial fill upon patient request if the prescription is for a schedule II opioid drug. Start Date: 04/10/23 Status: Ordered Lasix 40 mg oral tablet 40 mg, 1, tablet, By Mouth, Daily, # 30 tablet, Refills 0, Maintenance, 04/10/23 22:36:00 EDT, Partial fill upon patient request if the prescription is for a schedule II opioid drug. Start Date: 04/10/23 Status: Ordered Lipitor 40 mg oral tablet 1 tablet = 40 mg, By Mouth, Daily, # 30 tablet, 0 Refills, Maintenance, 04/08/22 3:19:00 EDT, Tablet, Partial fill upon patient request if the prescription is for a schedule II opioid drug. Start Date: 04/08/22 Status: Ordered nitroglycerin 0.3 mg sublingual tablet See Instructions, PRN for chest pain, 1 tablet Sublingual, take PRN for chest pain (if you need to take >1, call PCP), # 30 tablet, 0 Refills, Maintenance, 04/11/22 11:08:00 EDT, Tablet, [facility], Partial fill upon patient request if t... Start Date: 04/11/22 Status: Ordered pantoprazole 40 mg oral delayed release tablet = 40 mg, By Mouth, Daily, # 30 each, 0 Refills, Maintenance, 07/25/22 15:49:00 EDT, EC Tablet, 165,cm, 04/11/22 8:29:00 EDT, Height, 59, kg, 04/07/22 22:23:00 EDT, Dry Weight Start Date: 07/25/22 Stop Date: 08/24/22 Status: Ordered PEG-3350 with Electrolytes (Eqv-GoLYTELY) oral powder for reconstitution See Instructions, 1 glass every 15-30 minutes until finished, # 4,000 mL, 0 Refills, Maintenance, 04/12/22 14:24:00 EDT, [id number], Partial fill upon patient request if the prescription is for a schedule II opioid drug., 1 glass every 15-30 m... Start Date: 04/12/22 Status: Ordered Spiriva Respimat 1.25 mcg/inh inhalation aerosol 2 puffs, Inhalation, Daily, # 4 Gm, 0 Refills, Maintenance, 07/25/22 15:49:00 EDT, Aerosol, [facility], Partial fill upon patient request if the prescription is for a schedule II opioiddrug., 165, cm, 04/11/22 8:29:00 EDT, Height, 59, k... Start Date: 07/25/22 Status: Ordered Toprol XL 100 mg oral tablet, extended release 100 mg, 1, tablet, By Mouth, Daily, # 30 tablet, Refills 0, Maintenance, 04/08/22 3:20:00 EDT, Partial fill upon patient request if the prescription is for a schedule II opioid drug. Start Date: 04/08/22 Status: Ordered traZODone 50 mg oral tablet 25 mg, 0.5, tablet, By Mouth, Daily at bedtime, # 15 tablet, Refills 0, Maintenance, 04/07/22 22:37:00 EDT, Partial fill upon patient request if the prescription is for a schedule II opioid drug. Start Date: 04/07/22 Status: Ordered Results Radiology Reports * Exam Date Time Procedure Performing Provider Status 04/10/23 7:20 PM Chest Portable Quentin Pollock; Auth (Jenna ified) Notes: (Chest Portable) Reason For Exam: Shortness of Breath RESULT: Chest Portable Chest Portable performed upright at 7:16 PM Hx of Present Illness: pt arrived from MD's office, feeling SOB chest pressure. Placed on BiPAP by EMS. POC in 400s; Reason: Shortness of Breath; Clinical Question(s): CHF COMPARISON: Chest x-rays dated 07/23/2022 and 04/07/2022. FINDINGS: LINES AND TUBES: None. LUNGS AND PLEURA: Clear lungs. Normal pulmonary vascularity. No pleural effusion. No pneumothorax. HEART, MEDIASTINUM AND DEVIN: Heart is normal in size. Normal mediastinal and hilar contour. BONES AND SOFT TISSUES: No acute abnormality. IMPRESSION: No acute abnormality. WSN: [id number] Ordering Physician: Mara Patel Dictated By: Stephanie Bae MD Dictated Date/Time: 04/10/23 7:23 pm Reviewed By: Stephanie Bae MD Signed By: Stephanie Bae MD Signed Date/Time: 04/10/23 7:23 pm Transcribed By: SARIKA Transcribed Date/Time: 04/10/23 7:21 pm * Exam Date Time Procedure Performing Provider Status 04/10/23 6:42 PM US Doppler Ext Lower Venous Bilat Marina Figueroa; Auth (Verified) Notes: (US Doppler Ext Lower Venous Bilat) Reason For Exam: Pain in limb;Other: RESULT: US Doppler Ext Lower Venous Bilat US Doppler Ext Lower Venous Bilat Reason: Other:; Pain in limb; Clinical Question(s): Thrombosis COMPARISON: None IMAGING TECHNIQUE: Ultrasound of the veins from the groin through the calf was performed using grayscale, color, and spectral Doppler ultrasound assessing for complete compressibility and normal flowcharacteristics. FINDINGS: RIGHT LOWER EXTREMITY: Common femoral vein: Patent. No thrombosis. Femoral vein: Patent. No thrombosis. Popliteal vein: Patent. No thrombosis. Gastrocnemius veins: The visualized portions are patent without evidence of thrombosis. Peroneal veins: The visualized portions are patent without evidence of thrombosis. Posterior tibial veins: The visualized portions are patent without evidence of thrombosis. LEFT LOWER EXTREMITY: Common femoral vein: Patent. No thrombosis. Femoral vein: Patent. No thrombosis. Popliteal vein: Patent. No thrombosis. Gastrocnemius veins: The visualized portions are patent without evidence of thrombosis. Peroneal veins: The visualized portions are patent without evidence of thrombosis. Posterior tibial veins: The visualized portions are patent without evidence of thrombosis. OTHER FINDINGS: IMPRESSION: No evidence of deep venous thrombosis. WSN: [id number] Ordering Physician: Mara Patel Dictated By: Misha Bueno MD Dictated Date/Time: 04/10/23 6:46 pm Reviewed By: Misha Bueno MD Signed By: Misha Bueno MD Signed Date/Time: 04/10/23 6:46 pm Transcribed By: SARIKA Transcribed Date/Time: 04/10/23 6:46 pm Vital Signs Most recent to oldest [Reference Range]: 1 2 3 Height 164 cm (04/12/23 7:45 AM) 164 cm (04/12/23 4:26 AM) 164 cm (04/11/23 11:59 PM) Weight 62.6 kg (04/11/23 5:34 PM) Oxygen Saturation [94-100 %] 91 % *L* (04/12/23 7:45 AM) 96 % (04/12/23 4:26 AM) 96 % (04/11/23 11:59 PM) Pulse Rate [55-90 bpm] 103 bpm *H* (04/12/23 7:45 AM) 77 bpm (04/12/23 4:26 AM) 78 bpm (04/11/23 11:59 PM) Body Mass Index [18.5-24.99 kg/m2] 23.27 kg/m2 (04/11/23 5:34 PM) Blood Pressure [90-138/55-84 mm Hg] 121/76mm Hg (04/12/23 7:45 AM) 147/72mm Hg *H* (04/12/23 7:45 AM) 147/72mm Hg *H* (04/12/23 4:26 AM) Respiratory Rate [16-30 br/min] 18 br/min (04/12/23 8:44 AM) 18 br/min (04/12/23 7:44 AM) 20 br/min (04/12/23 4:26 AM) Temperature [96.8-100.4 DegF] 98.2 DegF (04/12/23 7:45 AM) 98.0 DegF (04/12/23 4:26 AM) 98.1 DegF (04/11/23 11:59 PM) Liters per Minute 2 L/min (04/11/23 2:44 PM) 2 L/min (04/11/23 11:36 AM) 2 L/min (04/11/23 8:58 AM) Mode of Delivery (Oxygen) Room air (04/12/23 7:45 AM) Room air (04/12/23 4:26 AM) Room air (04/11/23 11:59 PM) Blood pressure sites Arm, right (04/12/23 7:45 AM) Arm, left (04/12/23 4:26 AM) Arm, right (04/11/23 11:59 PM) Temperature Route Oral (04/12/23 7:45 AM) Oral (04/12/23 4:26 AM) Oral (04/11/23 11:59 PM) Dry Weight 62.6 kg (04/11/23 5:34 PM) Social History Social History Type Response Smoking Status 5-9 cigarettes (betw een 1/4 to 1/2 pack)/day in last 30 days; Interested in cessation: Yes entered on: 04/07/22 Sex Male Admission evaluation note * Jan MICHELLE, Valerie Borges: MODIFY Ashu MICHELLE, Pako: MODIFY, MODIFY Ashu MICHELLE, Pako: MODIFY, MODIFY Ashu MICHELLE, Pako: MODIFY, MODIFY Ashu MICHELLE, Pako: MODIFY, PERFORM Ashu MICHELLE, Pako: PERFORM, MODIFY Ashu MICHELLE, Pako: MODIFY, MODIFY Ashu MICHELLE, Pako: MODIFY Event Display: Admission Note Authored Date: Patient: ??RENU CONTE ? Age:??47 Years?Sex:??Male?:??1975?? Chief Complaint/Reason for Consultation pt went to pcp for two weeks of sob and chest pressure. ems found L lung sounds diminished, placed on cpap. no increased wob or hypoxia. sig history of chf and copd with edema throughout. 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 The patient was initially evaluated as an outpatient at [place]. As per SACHI Eddy at [facility] in [place], the patient was referred to [facility] after concerning findings including shortness of breath, increased respiratory effort, 1+ pitting edema to b/l LE's, weight gain (2 pounds) after his diuretic dose was increased and hyperglycemia to 457mg/dl.??Upon my evaluation, the patient states that his shortness of breath??has slightly improved. ?? He was recently evaluated at [facility] emergency room on 04/21 where he endorsed shortness of breath, orthopnea, lower extremity edema and 1 to 2 weeks. ??The patient states that he requires oxygen supplementation at nighttime. ??The emergency department, the patient was given nitroglycerin and Lasix. ?? As per PCP, his Asthma-COPD overlap syndrome is described as: PFT with severe diffusion impairment and that accounts for most of his SOB. The chest CT did not showed any significant lung disease. ?? Initial ED evaluation: ??? BP: 150/160 systolic/80s diastolic; normal HR, afebrile ?Was found to be on 2 L NC saturating 96% that was weaned off; now on room air ?Slight leukocytosis at 13.4 with absolute neutrophilia at 10.1 noted ? ??H&H 10.3/32.7 (appears to be baseline) ?BMP normal; none ??? Hyperglycemia still in 300s with negative beta hydroxybutyrate and no anion gap ?BUN/creatinine: 36/1.4 (appears to be elevated compared to baseline) ?Alkaline phosphatase: 160; ALT: 45 ?NT-proBNP: 692; troponin x2: 17 and 18 respectively ?Urinalysis: 2+ glucose, trace albumin ?CXR: No acute abnormality ?? Initial ED management: ??? Aspirin 324 mg ?IV??Lasix 80 mg ?0.4 mg sublingual nitroglycerin? Current Insulin Pump Settings: Basal: Stay at 0.75 units/h, total of 18 hours/day. Higher basal rate may lead to hyperglycemia. Bolus: Target sugar/correct above change to 140.?? Correction factor increased to 30. No change to insulin to carb ratio. Review of Systems Constitutional:??No weight loss, fever, chills, weakness or fatigue. Allergy/Immune: Denies any??Eczema or hives Respiratory:??Mild shortness of breath, cough or sputum production. Cardiovascular:??No chest pain, chest pressure or chest discomfort. No palpitations or pedal edema. Gastrointestinal:??No anorexia, nausea, vomiting or diarrhea. No abdominal pain or blood in stool. Genitourinary:??No burning micturition. No urinary frequency or incontinence. Neurologic:??No headache, dizziness, syncope, unilateral weakness, ataxia, numbness or tingling in the extremities. No change in bowel or bladder control. Musculoskeletal:??No muscle pain, back pain, joint pain or stiffness. Psychiatric:??No depression or anxiety. Objective Vital Signs?? Temperature: 98 DegF (04/10/23 18:53:00) Temperature Route: Oral (04/10/23 18:53:00) Pulse Rate: 71 bpm (04/10/23 21:42:00) Respiratory Rate: 16 br/min (04/10/23 21:42:00) Systolic Blood Pressure: 125 mm Hg (04/10/23 21:42:00) Diastolic Blood Pressure: 73 mm Hg (04/10/23 21:42:00) Blood pressure sites: Arm, right (04/10/23 19:48:00) Mean Arterial Pressure: 96 mm Hg (04/10/23 19:48:00) Pulse Pressure: 52 mm Hg (04/10/23 21:42:00) Oxygen Saturation: 96 % (04/10/23 21:42:00) Liters per Minute: 2 L/min (04/10/23 21:42:00) Mode of Delivery (Oxygen): Nasal cannula (04/10/23 21:42:00) Early Warning Score: 0 (04/10/23 21:43:02) ? Intake/Output? No Data Available ? Physical Exam Constitutional: Alert, in no distress. Mental Status: Oriented to person, place and time. Respiratory: Clear to auscultation. No wheezing, rales or rhonchi. Cardiovascular: Mild JVD noted, 1+ pitting edema noted of LLE. RLE difficult to determine given swelling + warmth/tenderness.??S1 S2 regular. No murmurs, rubs or gallops. Gastrointestinal: Abdomen soft, non-tender, non-distended. Normal bowel sounds. No pulsatile mass. No hepatosplenomegaly. Genitourinary: No costovertebral angle tenderness. Neurologic: No focal neurological deficits. Flexor plantar response. Moves all extremities spontaneously. Sensation intact bilaterally. Skin: No rashes or lesions. No petechiae or purpura.?? Psychiatric: Normal mood and affect Assessment/Plan This is a case of a 47-year-old male with a past medical history significant for??Asthma-COPD??overlap syndrome, HFpEF, T2DM, Primary hypertension, YARELIS, adrenal mass, h/o pancreatitis, microscopic hematuria, depression, hyperlipidemia, PVD s/p left iliac stent??presents to the emergency department w ith shortness of breath. ?? Shortness of Breath Patient reports worsening shortness of breath in the last 24 hours; Was recently evaluated??at??[place] ED on 03/31??and??shortness of breath improved after??Lasix administration Patient is noted to have??B-lines??upon??ED ultrasound evaluation;??CXR:??No acute abnormality, notconvincing for pulmonary edema Physical examination reveals mild JVD??and 1+ pitting edema of left lower extremity; Echo 07/24/2022: No evidence of heart failure; outpatient records indicate diastolic heart failure and has been prescribed Lasix twice daily (40 mg a.m. +20 mg p.m.) --which has been uptitrated As per PCP note, patient has been gaining weight despite this increased diuretic regimen Of note, the patient states that he??has been wheezing??and is noncompliant with inhalers at home;,could be component of asthma/COPD??in the setting of??worsening diastolic heart failure, viral infection; patient continues to smoke (1/2??PPD) No documented hypoxia;??patient does use 1 to 2 L of oxygen??nocturnally ?? Unlikely pneumonia??given radiographic findings + procalcitonin: 0.06;??unlikely??pulmonary embolism --CTA obtained at [place] ED on 03/31 which was negative; ?? Plan: - administer 40mg IV Lasix in AM - can transition to home diuretic regimen after (40mg in AM + 20mg in PM) - DuoNeb + Breo Ellipta for Asthma-COPD overlap - consider steroids if little improvement for obstructive lung process - O2 support as necessary; wean for O2 >92% - Echocardiography to assess for interval change given increasing weights despite increase diuretic - RSV + viral panel to assess for causes of exacerbation of asthma/COPD - can consider Atrovent/Pulmicort if worsening SOB??+ wheezing ?? Right Lower Extremity Warmth + Tenderness Likely Cellulitis Non-purulent cellulitis; patient states he has had 3 weeks of RLE pain, swelling + tenderness whichis worsening Diffusely swollen, below knee till ankle; DVT U/S negative as conducted in ED; + negative Rudy's sign; pulses intact b/l History of PAD -- s/p left iliac stent in LLE; ?? Plan: - start cefazolin for management of non-purulent cellulitis - can transition to Augmentin on discharge - continue to monitor for reduction in warmth + swelling ?? Hyperglycemia Omnipod insulin pump however does not have PDM to administer boluses or monitor; Type 2 DM; follows outpatient endo with [facility] ?? Most recent settings: Basal: Stay at 0.75 units/h, total of 18 units/day. Higher basal rate may lead to hyperglycemia. Bolus: Target sugar/correct above change to 140.?? Correction factor increased to 30. Insulin to carb ratio: 8g/unit ?? Plan: - remove insulin pump; rely on basal + bolus insulin - Basal dose of insulin dose equates to 24u of Lantus (18u via pump * 0.3) -- can administer as daily basal dose (held off on night of 04/11) given normoglycemic prior to administration - SSI until 7 am normal - SSI after 7 am on 04/11 tightened as per outpatient settings - Endocrinology following; appreciate recommendations ?? Left Adrenal Mass Abdominal MRI 04/05/2022 at OSH:??Evidence of mild adrenal hyperplasia versus benign left adrenal mass Urinary??catecholamines??on 05/05/2022??were found to be normal ?? Plan: - continue to monitor + outpatient f/u - consider repeat 24-hour metanephrines, catecholamines if continued HTN; ? Chronic Medical Conditions: Hypertension:??Continue amlodipine; hold home Hydralazine + ?metoprolol Hyperlipidemia: Atorvastatin Major depressive disorder: Continue escitalopram Peripheral neuropathy: Continue gabapentin Insomnia: Continue trazodone GERD: Continue pantoprazole ?? Quality Measures: CODE STATUS: Full resuscitation Diet: Cardiac DVT prophylaxis:??Subcu heparin ?? Patient has been??seen and discussed with Dr. Jan Wakefield PGY1 Pager: [phone] ? Attending Attestation: I have seen and evaluated this patient?04/10/2023 in ED D pod after he had presented for evaluation for persistent shortness of breath??following a similar admission to [facility]??from 03/31-?found to have??question of B-lines??on bedside echocardiogram with chest x-ray showing no evidence of edema, ultrasound showing??no evidence of DVT??and labs notable for??normal D-dimer,??flat normal-troponin, leukocytosis of 13.4?this was a??mixed picture given his underlyingchronic??respiratory issues??and??minimal findings of slight volume overload on exam?agree with 1 additional dose of furosemide and then reassessing to see if can transition back to oral therapy.?? Note that the patient's echocardiogram was essentially normal in 06/2022??but he does carry a previous diagnosis of HFpEF.?? Would continue to monitor and agree with echocardiogram to see if there is been a significant interval change..?? The??question of cellulitis was not as convincing by the time I saw the patient but he does have a leukocytosis???would continue to monitor as may not require full dose course of therapy.. ??I have discussed the case and its management with the resident and agree with the findings and plan as documented in the resident??s note. ?? [] ? Histories Past Medical History/Problem List Asthma COPD overlap syndrome HFpEF Type 2 diabetes mellitus Primary hypertension Obstructive sleep apnea Adrenal mass History of pancreatitis Microscopic hematuria Major depressive disorder Hyperlipidemia Peripheral vascular disease s/p left??iliac stent ? Past Surgical History Left iliac stent placement; ?? Social History Alcohol Details:??Use: Current. ??Frequency: 1-2 times per week. ??Type: Wine, Liquor. Employment/School Details:??Status: Disabled. Exercise Details:??Self assessment: Fair condition. Home/Environment Details:??Living situation: Home/Independent. ??Lives with: Children. Nutrition/Health Details:??Diet: Regular. Substance Abuse Details:??Use: Never. Tobacco Details:??Use: 5-9 cigarettes (between 1/4 to 1/2 pack)/day in last 30 days. ??Interested in cessation: Yes. Electronic Cigarette/Vaping Details:??Electronic Cigarette Use: Never. ? Family History Father with CAD ? Medications Home Medications Albuterol (Albuterol (Eqv-Proventil HFA) 90 mcg/inh inhalation aerosol)?2?puff(s)?Inhalation?Every 6 hours Amlodipine (amLODIPine 10 mg oral tablet)?10?Milligram?1?tablet?By Mouth?Daily Aspirin (aspirin 81 mg oral delayed release tablet)?81?Milligram?1?tablet?By Mouth?Daily Atorvastatin (Lipitor 40 mg oral tablet)?1?tab(s)?40?Milligram?By Mouth?Daily Escitalopram (escitalopram 10 mg oral tablet)?1?tab(s)?10?Milligram?By Mouth?Daily Furosemide (Lasix 40 mg oral tablet)?40?Milligram?1?tablet?By Mouth?Daily Furosemide (Lasix 20 mg oral tablet)?20?Milligram?1?tablet?By Mouth?Daily at bedtime Gabapentin (gabapentin 300 mg oral capsule)?300?Milligram?1?capsule?By Mouth?3 times a day hydrALAZINE (hydrALAZINE 25 mg oral tablet)?50?Milligram?2?tablet?By Mouth?3 times a day?for 14?Days?continue it until lisinopril is held off. Once lisinopril resumed, stopthis medication Metoprolol (Toprol XL 100 mg oral tablet, extended release)?100?Milligram?1?tablet?By Mouth?Daily Miscellaneous Rx (BMP and UA in 5 days)?See Instructions?Please repeat the blood work and urine study, And follow up with your PCP. Thanks Nitroglycerin (nitroglycerin 0.3 mg sublingual tablet)?See Instructions?as needed?for chest pain?1 tablet Sublingual, take PRN for chest pain (if you need to take >1, call PCP) Pantoprazole (pantoprazole 40 mg oral delayed release tablet)?40?Milligram?By Mouth?Daily?for 30?Days PEG Electrolyte Solution (PEG-3350 with Electrolytes (Eqv-GoLYTELY) oral powder for reconstitution)?See Instructions?1 glass every 15-30 minutes until finished Tiotropium (Spiriva Respimat 1.25 mcg/inh inhalation aerosol)?2?puff(s)?Inhalation?Daily Trazodone (traZODone 50 mg oral tablet)?25?Milligram?0.5?tablet?By Mouth?Daily atbedtime ? Results Recent Labs BLOOD COUNT & DIFF WBC 13.4 k/mm3 (High)?? 04/10/2023 17:07 RBC 3.93 m/mm3 (Low)?? 04/10/2023 17:07 Hgb 10.3 Gm/dL (Low)?? 04/10/2023 17:07 Hct 32.7 % (Low)?? 04/10/2023 17:07 MCV 83.2 femtoliters ()?? 04/10/2023 17:07 MCH 26.2 pg (Low)?? 04/10/2023 17:07 MCHC 31.5 g/dL (Low)?? 04/10/2023 17:07 Platelet Count 280 k/mm3 ()?? 04/10/2023 17:07 RDW-SD 55.6 femtoliters (High)?? 04/10/2023 17:07 MPV 11.5 femtoliters ()?? 04/10/2023 17:07 Nucleated RBC (Automated) 0.0 #/100 WBC'S ()?? 04/10/2023 17:07 Abs. NRBC 0.0 k/mm3 ()?? 04/10/2023 17:07 Abs. Neut 10.1 k/mm3 (High)?? 04/10/2023 17:07 Abs. Lymph 2.0 k/mm3 ()?? 04/10/2023 17:07 Abs. Ness 0.9 k/mm3 ()?? 04/10/2023 17:07 Abs. Eo 0.2 k/mm3 ()?? 04/10/2023 17:07 Abs. Baso 0.1 k/mm3 ()?? 04/10/2023 17:07 Neut % 75.9 % ()?? 04/10/2023 17:07 Lymph % 15.0 % ()?? 04/10/2023 17:07 Ness % 6.9 % ()?? 04/10/2023 17:07 Eos % 1.3 % ()?? 04/10/2023 17:07 Baso % 0.4 % ()?? 04/10/2023 17:07 Hemoglobin (POC) POC Cartridge 10.5 Gm/dL (Low)?? 04/10/2023 17:09 Hematocrit (POC) POC Cartridge 31 % (Low)?? 04/10/2023 17:09 Imm Gran 0.5 % ()?? 04/10/2023 17:07 Abs. Imm Gran 0.1 k/mm3 ()?? 04/10/2023 17:07 ?? CARDIAC Nt-Probnp 692 pg/mL (High)?? 04/10/2023 18:00 High Sensitivity Troponin (HSTnT) 18 ng/L ()?? 04/10/2023 18:53 ?? CHEM GENERAL Sodium 139 mmol/L ()?? 04/10/2023 18:00 Potassium 5.2 mmol/L ()?? 04/10/2023 18:00 Chloride 106 mmol/L ()?? 04/10/2023 18:00 Bicarbonate Level 23 mmol/L ()?? 04/10/2023 18:00 Anion Gap 10 ()?? 04/10/2023 18:00 Sodium (POC) POC Cartridge 137 mmol/L ()?? 04/10/2023 17:09 Potassium (POC) POC Cartridge 5.3 mmol/L (High)?? 04/10/2023 17:09 Chloride (POC) POC Cartridge 108 mmol/L (High)?? 04/10/2023 17:09 Glucose Level 368 mg/dL (High)?? 04/10/2023 18:00 Glucose (POC) POC Cartridge 376 (High)?? 04/10/2023 17:09 Glucose, POC 335 mg/dL (High)?? 04/10/2023 20:28 Beta Hydroxybutyrate <0.05 mmol/L ()?? 04/10/2023 18:00 BUN 36 mg/dL (High)?? 04/10/2023 18:00 BUN (POC) POC Cartridge 38 mg/dL (High)?? 04/10/2023 17:09 Creatinine-Blood 1.4 mg/dL (High)?? 04/10/2023 18:00 Creatinine (POC) POC Cartridge 1.4 mg/dL (High)?? 04/10/2023 17:09 Estimated GFR Creatinine 60 ML/MIN/1.73 M2 ()?? 04/10/2023 18:00 Calcium 9.2 mg/dL ()?? 04/10/2023 18:00 Calcium, Ionized pH Corrected 1.25 mmol/L ()?? 04/10/2023 17:09 Ionized Calcium (POC) POC Cartridge 1.17 mmol/L ()?? 04/10/2023 17:09 Magnesium 2.2 mg/dL ()?? 04/10/2023 18:00 Protein, Total 6.5 Gm/dL ()?? 04/10/2023 18:00 Albumin 4.0 Gm/dL ()?? 04/10/2023 18:00 AG Ratio 1.6 ()?? 04/10/2023 18:00 Alkaline Phosphatase 160 units/L (High)?? 04/10/2023 18:00 AST (SGOT) 25 units/L ()?? 04/10/2023 18:00 ALT (SGPT) 45 units/L (High)?? 04/10/2023 18:00 Bilirubin, Total <0.2 mg/dL ()?? 04/10/2023 18:00 ?? COAG D-Dimer 0.34 mg/L FEU ()?? 04/10/2023 17:07 ?? UA/URINALYSIS Appear/Color, Urine COLORLESS ()?? 04/10/2023 20:20 Specific Elizabeth, Urine 1.008 ()?? 04/10/2023 20:20 pH, Urine 6.5 ()?? 04/10/2023 20:20 Albumin, Urine TRACE (Abnormal)?? 04/10/2023 20:20 Glucose, Urine 2+ (Abnormal)?? 04/10/2023 20:20 Ketones, Urine NEGATIVE ()?? 04/10/2023 20:20 Bilirubin, Urine NEGATIVE ()?? 04/10/2023 20:20 Hemoglobin, Urine NEGATIVE ()?? 04/10/2023 20:20 Nitrite, Urine NEGATIVE ()?? 04/10/2023 20:20 Leukocyte, Urine NEGATIVE ()?? 04/10/2023 20:20 Urobilinogen NORMAL mg/dL ()?? 04/10/2023 20:20 WBC's, Urine <1 /HPF ()?? 04/10/2023 20:20 RBC's, Urine 2 /HPF ()?? 04/10/2023 20:20 Hyaline Cast 1 LPF ()?? 04/10/2023 20:20 Hold Urine Culture Testing available 48 hours from time of collection. ()?? 04/10/2023 20:20 ?? VIROLOGY COVID-19 by RT-PCR NEGATIVE ()?? 04/10/2023 16:59 ? Microbiology ?? COVID-19 (Novel Coronavirus), Rapid PCR?? Completed?? Source: Nasal Body Site: Nose Collected Dt/Tm: 04/10/2023 17:05 Last Updated Dt/Tm: 04/10/2023 18:21 ? EKG study * Event Display: EKG Authored Date: * Event Display: ECG 12-Lead Authored Date: [id number] Please click on pdf link to open report * Event Display: ECG 12-Lead Authored Date: Ventricular Rate: 85 BPM Atrial Rate: 85 BPM P-R Interval: 156 ms QRS Duration: 78 ms Q-T Interval: 358 ms QTC Calculation(Bazett): 426 ms P Weidman: 54 degrees R Weidman: 62 degrees T Weidman: 36 degrees Normal sinus rhythm Normal ECG When compared with ECG of 21-JUL-2022 20:13, No significant change was found Confirmed by CINDY VERGARA ([id number]) on 04/10/2023 5:17:03 PM Beulah: CINDY VERGARA Heart * Event Display: Echocardiogram - Complete Authored Date: Transthoracic Echocardiography Report (TTE) Patient Demographics Patient Name RENU CONTE Date of Study 04/11/2023 Corporate Gender Male Facility Race Ethnicity or Date of 1975 Height: 64.96 inches Age 47 year(s) Weight: 134.48 pounds Accession Number [id number] BSA: 1.67 m2 Room Number [id number] BMI: 22.41 kg/m2 Referring Physician Ashu Min MD Interpreting Kaden Sims MD Physician 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 Indications Heart failure. Clinical History Asthma. Diabetes Mellitus. Hypertension. Hyperlipidemia. YARELIS. Study Data Type of Study TTE procedure:Echo Complete-Doppler, Colorflow, M-Mode. Study Date04/11/2023 Start Time: 10:22 AM Study Location: [facility] [place] Study Status: ER Patient Status: Routine Technical Quality: Adequate Blood Pressure:141/82 mmHg EKG: Within normal limits HR: 67 bpm 2D Measurements LV Diastolic Dimension: 4.5 cm LV Systolic Dimension: 2.8 cm LV Septum Diastolic: 1.1 cm LV PW Diastolic: 1.1 cm AO Root Dimension: 3 cm LVOT Stroke Volume: 64.06 ml LVOT: 2 cm Stroke Volume Index38.36 ml/m2 Ascending Aorta:3 cm Cardiac Index:2.57 l/min/m2 Doppler Measurements AV Peak Velocity: 143 cm/s MV Peak E-Wave: 129 cm/s AV Peak Gradient: 8.18 mmHg MV Peak A-Wave: 51.6 cm/s AV Mean Gradient: 4 mmHg MV E/A Ratio: 2.5 AV VTI:28.1 cm MV P1/2t: 65 msec LVOT Peak Velocity: 103 cm/s LVOT VTI20.4 cm MV Deceleration Time: 222 msec AV Area (Continuity):2.28 cm2 MV Area (PHT): 3.38 cm2 PV Peak Velocity: 115 cm/s PV Peak Gradient: 5.29 mmHg E' Septal Velocity: 9.25 cm/s E' Lateral Velocity: 12.2 cm/s E/Med E':13.52899 E/Lat E':10.88672 Cardiac Anatomy Left Ventricle/Interventricular Septum The left ventricular size is normal. The left ventricular wall thickness is upper normal. The LV systolic function is normal. The left ventricular ejection fraction is 55-60%. There are no definite regional wall motion abnormalities. Normal diastolic function. Left Atrium/Interatrial Septum The left atrium is normal in size. Aortic Valve The aortic valve is trileaflet. There is no aortic stenosis. There is no aortic regurgitation. Mitral Valve The mitral valve appears mildly thickened. There is trace mitral regurgitation. Aorta The ascending aorta and aortic root are normal in size. Right Ventricle The right ventricle is normal in size and function. Right Atrium The right atrium is normal in size. Pulmonic Valve The pulmonic valve is functionally normal. There is trace pulmonic regurgitation. Tricuspid Valve The tricuspid valve is grossly normal. There is trace tricuspid valve regurgitation. Pumonary Artery An accurate pulmonary artery pressure could not be obtained. Venous Structures The inferior vena cava appears normal. Pericardium/Extracardiac There is no pericardial effusion. Summary 1) The LV systolic function is normal. The left ventricular ejection fraction is 55-60%. There are no definite regional wall motion abnormalities. 2) The right ventricle is normal in size and function. 3) The mitral valve appears mildly thickened. There is trace mitral regurgitation. Comparison Comparison is made to the study of July 24, 2022. There is no significant change. Signature * Event Display: Echocardiogram - Complete Authored Date: Cardiology * Event Display: Cardiac Rhythm Strips Authored Date: Hospital Progress note * Landon Condon RN: PERFORM, SIGN, VERIFY Event Display: Progress Note Hospital Authored Date: Patient: RENU CONTE Age: 47 years Sex: Male : 1975 Associated Diagnoses: None Author: Landon Condon RN Findings Pt was discharged from [facility]. IV removed. Medications reviewed. Education completed. Pt left unit in wheelchair. Paperwork signed and placed in chart. Discharge Information Case Management Discharge Plan : Case Management Discharge Plan Data 04/12/2023 10:45 EDT Discharge Level of Care at Discharge Home/Long Term/Foster Care * Julianna MICHELLE, Roro Coello: MODIFY, PERFORM Event Display: Progress Note Hospital Authored Date: [id number] Patient: ??RENU CONTE ? Age:??47 Years?Sex:??Male?:??1975?? Subjective No hypoglycemia overnight.?? The patient feels well and is looking forward to being discharged today. Review of Systems Reviewed and negative except for??above Objective Vitals & Measurements T:??98.0?F?? TMIN:??97.7?F?? TMAX:??98.1?F?? HR:??77??(Peripheral)?? RR:??18?? BP:??147/72?? SpO2:??96%?? WT:??62.6??kg?? Physical Exam Eyes: Sclera nonicteric, nonindurated ENT: Dry oral mucous membrane RESP: nonlabored breathing?? Skin: No notable rashes Neuro: Grossely normal motor function Psych: alert and oriented x4 Constitutional: Well appearing?? Assessment/Plan 47-year-old man with history of type 2 diabetes on OmniPod, hypertension, HFpEF, YARELIS, COPD, adrenalmass who presented on 04/10 for evaluation of dyspnea x2 days.?? Bids consulted for assistance in management of diabetes while patient on pump. Unfortunately patient did not have pump supplies so we placed him on insulin basal bolus regimen. ?? #Type 2 diabetes on insulin pump No recent HbA1c. Past 24 hours patient blood glucose has been ranging from 117-224. This morning the patient's blood glucose was 298. On review of the patient's regimen it seems like he responded appropriately to boluses but requiresmore basal insulin. ?? We recommend giving him 28 units of Lantus for today and then the patient can resume insulin pump tomorrow morning at 8 AM. Unfortunately patient does not have PDM so we are unable to temporarily suspend his basal rate. ?? We told the patient to take lispro sliding scale to cover for premeals until able to place pump tomorrow.?? 7 units for blood sugar of 100+5 units for every 50 mg/dL increase in blood glucose 3 timesdaily/AC hold if NPO ?? 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 ?? Recommendations communicated with primary team via cortex Rest of Management per primary team Plan discussed with and physician Dr. Ramirez her addendum is to follow-up Thank you for consulting endocrinology/diabetes & metabolism.?? We will follow along.?? Please do not hesitate to contact us on cortex with any questions or concerns. Page #: [phone] Roro Levine MD PGY-IV ?? *This note was dictated by STYLIGHT voice detection software, for any errors or clarifications, please do not hesitate to connect with the scribe.? * James MICHELLE, Issra: PERFORM Event Display: Progress Note Hospital Authored Date: Attending Attestation : I have discussed the case and seen the patient with the fellow, I agree with the evaluation and treatment plan as outlined in the fellow's note . ?? * Thu Jhaveri: PERFORM, SIGN, VERIFY Event Display: Progress Note Hospital Authored Date: [id number] Patient: RENU CONTE Age: 47 years Sex: Male : 1975 Associated Diagnoses: None Author: Thu Jhaveri Findings Narrative/Incidental Behavior Resource Clinician Note: Chart reviewed due to admission Noble Suicide Severity Scale triggering systems-generated psych consults. Symptoms DO NOT warrant formal psych consult at this time. Please continue to assess depression and SI. Education on symptoms of Depression and when to seek help placed in pt's dc plan. Please call Behavior Resource team at [phone] with questions, and do not hesitate to order new psych consult if pt's SI status changes. . Note * Lam MICHELLE, Homer K: PERFORM, MODIFY Event Display: Discharge/Transfer Note Hospital Authored Date: Patient: ??RENU CONTE ? Age:??47 Years?Sex:??Male?:??1975?? Patient Information Discharge Location: B Primary Care Physician: Not on Staff, PCP Admit Date/Time: 04/10/23 20:09 Discharge Disposition Discharge Disposition: ?? Discharge Diagnosis CHF exacerbation (I50.9) Hypertension (I10) Peripheral artery disease (I73.9) ?? _ Discharge Medications Albuterol (Albuterol (Eqv-Proventil HFA) 90 mcg/inh inhalation aerosol)?2?puff(s)?Inhalation?Every 6 hours Amlodipine (amLODIPine 10 mg oral tablet)?10?Milligram?1?tablet?By Mouth?Daily Aspirin (aspirin 81 mg oral delayed release tablet)?81?Milligram?1?tablet?By Mouth?Daily Atorvastatin (Lipitor 40 mg oral tablet)?1?tab(s)?40?Milligram?By Mouth?Daily Cefadroxil (cefadroxil 500 mg oral capsule)?1?capsule?500?Milligram?By Mouth?Every 12 hours?for 7?Days Escitalopram (escitalopram 10 mg oral tablet)?1?tab(s)?10?Milligram?By Mouth?Daily Furosemide (Lasix 40 mg oral tablet)?40?Milligram?1?tablet?By Mouth?Daily Furosemide (Lasix 20 mg oral tablet)?20?Milligram?1?tablet?By Mouth?Daily at bedtime Gabapentin (gabapentin 300 mg oral capsule)?300?Milligram?1?capsule?By Mouth?3 times a day hydrALAZINE (hydrALAZINE 25 mg oral tablet)?50?Milligram?2?tablet?By Mouth?3 times a day?for 14?Days?continue it until lisinopril is held off. Once lisinopril resumed, stopthis medication Insulin Lispro (insulin lispro 100 u/ml subcutaneous injection)?7-15 units?Subcutaneous Injection?3 times a day before meals?for 1?Days?<< Sliding Scale Comments >>100 -129 ?? 7 units Call if less than [id number] - 159 ?? 9 units 160 - 189 ?? 11 units 190 - 219 ?? 13 [id number] - 249 ?? 15 units Call if greater than 400<< Sliding Scale Comments >> Metoprolol (Toprol XL 100 mg oral tablet, extended release)?100?Milligram?1?tablet?By Mouth?Daily Miscellaneous Rx (BMP and UA in 5 days)?See Instructions?Please repeat the blood work and urine study, And follow up with your PCP. Thanks Nitroglycerin (nitroglycerin 0.3 mg sublingual tablet)?See Instructions?as needed?for chest pain?1 tablet Sublingual, take PRN for chest pain (if you need to take >1, call PCP) Pantoprazole (pantoprazole 40 mg oral delayed release tablet)?40?Milligram?By Mouth?Daily?for 30?Days PEG Electrolyte Solution (PEG-3350 with Electrolytes (Eqv-GoLYTELY) oral powder for reconstitution)?See Instructions?1 glass every 15-30 minutes until finished Tiotropium (Spiriva Respimat 1.25 mcg/inh inhalation aerosol)?2?puff(s)?Inhalation?Daily Trazodone (traZODone 50 mg oral tablet)?25?Milligram?0.5?tablet?By Mouth?Daily atbedtime ? Quality Measures Tobacco Use Treatment:? Durable Medical Equipment CPAP/BiPAP Mask Type: Full (07/24/22) CPAP/BiPAP Mask Size: Medium (07/24/22) Ambulatory devices needed: None (04/11/23) ? Allergies Allergies ?(Active and Proposed Allergies Only) Trulicity? (Severity: Unknown severity, Onset: Unknown) metFORMIN? (Severity: Unknown severity, Onset: Unknown) ? 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 chronic resp failure as needed home oxygen., HFpEF, T2DM, Primary hypertension, YARELIS on cpap. ??adrenal mass, h/o pancreatitis, microscopic hematuria, depression, hyperlipidemia, PVD s/p left iliac stent??pre sents to the emergency department with shortness of breath. ?Acute on chornic diastolic CHF . Slight pulmonary congestion on chest x-ray,??mild JVD on exam,??significantly improved after diuresis Echo done??this admission showed??normal LVEF, no WMA,??no??left atrial enlargement,??normal IVC,??normal RV function Plan: Continue home Lasix??40 Mg in AM,??10 Mg in PM,??monitor daily weights,??can take extra??Lasix??if??increase in body weight by 2 to 3 pounds??in??2 to 3 days??duration Continue follow-up with cardiology, can discuss if candidate for CardioMEMS??device??given multiplehospitalizations ?? Right lower extremity cellulitis DVT U/S negative as conducted in ED; + negative Rudy's sign; History of PAD -- s/p left iliac stent in LLE; Plan: Discharge on??cefadroxil??500 twice daily??for 7 days ?? Diabetes mellitus??with??hyperglycemia Can resume home insulin pump tomorrow., per endocrine. cover with sliding scale / correction insulin for today only ( as patient got lantus dose today am) : 7- 15 units?Subcutaneous Injection?3 times a day before meals?for 1?Days?<< Sliding Scale Comments >>100 - 129 ?? 7 units?? 130 - 159 ?? 9 units 160 - 189 ?? 11 units 190 - 219 ?? 13 units 220 - 249 ?? 15 units Call if greater than 400<< Sliding Scale Comments >> ? Chronic Medical Conditions: COPD not in exacerbation: Not does not appear in??exacerbation,??continue home??Spiriva Continue usual??home oxygen??as needed Left Adrenal Mass: Abdominal MRI 04/05/2022 at [facility]:??Evidence of mild adrenal hyperplasia versus benign left adrenal mass Urinary??catecholamines??on 05/05/2022??were found to be normal. ??Plan: Outpatient follow-up Hypertension:??Continue amlodipine; hold home Hydralazine + ?metoprolol Hyperlipidemia: Atorvastatin Major depressive disorder: Continue escitalopram Peripheral neuropathy: Continue gabapentin Insomnia: Continue trazodone GERD: Continue pantoprazole ?? Quality Measures: CODE STATUS: Full resuscitation Diet: Cardiac DVT prophylaxis:??Subcu heparin Objective Assessment and Plan ? Vital Signs?? Temperature: 98.2 DegF (04/12/23 07:45:00) Temperature Route: Oral (04/12/23 07:45:00) Pulse Rate:??103 bpm??High (04/12/23 07:45:00) Respiratory Rate: 18 br/min (04/12/23 08:44:00) Systolic Blood Pressure: 121 mm Hg (04/12/23 07:45:00) Systolic Blood Pressure:??147 mm Hg??High (04/12/23 07:45:00) Diastolic Blood Pressure: 76 mm Hg (04/12/23 07:45:00) Diastolic Blood Pressure: 72 mm Hg (04/12/23 07:45:00) Blood pressure sites: Arm, right (04/12/23 07:45:00) Mean Arterial Pressure: 91 mm Hg (04/12/23 07:45:00) Pulse Pressure: 45 mm Hg (04/12/23 07:45:00) Oxygen Saturation:??91 %??Low (04/12/23 07:45:00) Liters per Minute: 2 L/min (04/11/23 14:44:00) Mode of Delivery (Oxygen): Room air (04/12/23 07:45:00) Early Warning Score: 3 (04/12/23 09:04:51) ? . Physical Exam Constitutional: Alert, in no distress. Mental Status: Oriented to person, place and time. Respiratory: diminished BS, no wheezing or rales. Cardiovascular: No pitting edema. s1s2 rrr. no murmur Gastrointestinal: Abdomen soft, non-tender, non-distended. Normal bowel sounds. Neurologic: No focal neurological deficits. Flexor plantar response.?? Skin: Rtl lower extremity erythema and tenderness. Psychiatric: Normal mood and affect Pending Results Add On Lab Order ordered on 04/10/2023 Add On Lab Order ordered on 04/10/2023 Add On Lab Order ordered on 04/11/2023 Hemoglobin A1C (Monitoring) ordered on 04/11/2023 Patient Instructions Check daily weights,??can take extra??Lasix??if??2 to 3 pound??weight gain in 1 to 2 days. Outpatient follow-up with cardiology Post Discharge Care Discharge ?04/12/23 9:15:00 EDT Home Health Face to Face ^HomeHealthFTF Results Discharge Labs BACTERIOLOGY MRSA PCR Result Negative, MRSA target DNA not detected. ()?? 04/11/2023 09:05 S Aureus ??PCR Result Positive, SA target DNA detected. ()?? 04/11/2023 09:05 ?? BLOOD COUNT & DIFF WBC 12.1 k/mm3 (High)?? 04/12/2023 01:58 RBC 4.01 m/mm3 (Low)?? 04/12/2023 01:58 Hgb 10.2 Gm/dL (Low)?? 04/12/2023 01:58 Hct 32.7 % (Low)?? 04/12/2023 01:58 MCV 81.5 femtoliters ()?? 04/12/2023 01:58 MCH 25.4 pg (Low)?? 04/12/2023 01:58 MCHC 31.2 g/dL (Low)?? 04/12/2023 01:58 Platelet Count 264 k/mm3 ()?? 04/12/2023 01:58 RDW-SD 53.9 femtoliters (High)?? 04/12/2023 01:58 MPV 11.6 femtoliters ()?? 04/12/2023 01:58 Nucleated RBC (Automated) 0.0 #/100 WBC'S ()?? 04/12/2023 01:58 Abs. NRBC 0.0 k/mm3 ()?? 04/12/2023 01:58 Abs. Neut 10.1 k/mm3 (High)?? 04/10/2023 17:07 Abs. Lymph 2.0 k/mm3 ()?? 04/10/2023 17:07 Abs. Ness 0.9 k/mm3 ()?? 04/10/2023 17:07 Abs. Eo 0.2 k/mm3 ()?? 04/10/2023 17:07 Abs. Baso 0.1 k/mm3 ()?? 04/10/2023 17:07 Neut % 75.9 % ()?? 04/10/2023 17:07 Lymph % 15.0 % ()?? 04/10/2023 17:07 Ness % 6.9 % ()?? 04/10/2023 17:07 Eos % 1.3 % ()?? 04/10/2023 17:07 Baso % 0.4 % ()?? 04/10/2023 17:07 Hemoglobin (POC) POC Cartridge 10.5 Gm/dL (Low)?? 04/10/2023 17:09 Hematocrit (POC) POC Cartridge 31 % (Low)?? 04/10/2023 17:09 Imm Gran 0.5 % ()?? 04/10/2023 17:07 Abs. Imm Gran 0.1 k/mm3 ()?? 04/10/2023 17:07 ?? CARDIAC Nt-Probnp 692 pg/mL (High)?? 04/10/2023 18:00 High Sensitivity Troponin (HSTnT) 18 ng/L ()?? 04/10/2023 18:53 ?? CHEM GENERAL Sodium 138 mmol/L ()?? 04/12/2023 01:58 Potassium 6.0 mmol/L (High)?? 04/12/2023 01:58 Chloride 103 mmol/L ()?? 04/12/2023 01:58 Bicarbonate Level 24 mmol/L ()?? 04/12/2023 01:58 Anion Gap 11 ()?? 04/12/2023 01:58 Sodium (POC) POC Cartridge 137 mmol/L ()?? 04/10/2023 17:09 Potassium (POC) POC Cartridge 5.3 mmol/L (High)?? 04/10/2023 17:09 Chloride (POC) POC Cartridge 108 mmol/L (High)?? 04/10/2023 17:09 Glucose Level 310 mg/dL (High)?? 04/12/2023 01:58 Glucose (POC) POC Cartridge 376 (High)?? 04/10/2023 17:09 Glucose, POC 298 mg/dL (High)?? 04/12/2023 05:50 Beta Hydroxybutyrate <0.05 mmol/L ()?? 04/10/2023 18:00 BUN 30 mg/dL (High)?? 04/12/2023 01:58 BUN (POC) POC Cartridge 38 mg/dL (High)?? 04/10/2023 17:09 Creatinine-Blood 1.5 mg/dL (High)?? 04/12/2023 01:58 Creatinine (POC) POC Cartridge 1.4 mg/dL (High)?? 04/10/2023 17:09 Estimated GFR Creatinine 55 ML/MIN/1.73 M2 ()?? 04/12/2023 01:58 Calcium 9.2 mg/dL ()?? 04/12/2023 01:58 Calcium, Ionized pH Corrected 1.25 mmol/L ()?? 04/10/2023 17:09 Ionized Calcium (POC) POC Cartridge 1.17 mmol/L ()?? 04/10/2023 17:09 Phosphorus 4.2 mg/dL ()?? 04/11/2023 07:00 Magnesium 2.0 mg/dL ()?? 04/11/2023 07:00 Protein, Total 6.1 Gm/dL (Low)?? 04/11/2023 07:00 Albumin 3.7 Gm/dL ()?? 04/11/2023 07:00 AG Ratio 1.5 ()?? 04/11/2023 07:00 Alkaline Phosphatase 125 units/L ()?? 04/11/2023 07:00 AST (SGOT) 19 units/L ()?? 04/11/2023 07:00 ALT (SGPT) 37 units/L ()?? 04/11/2023 07:00 Bilirubin, Total <0.2 mg/dL ()?? 04/11/2023 07:00 ? COAG D-Dimer 0.34 mg/L FEU ()?? 04/10/2023 17:07 ? MISC. CHEMISTRY Procalcitonin 0.06 ng/mL ()?? 04/10/2023 18:00 ? UA/URINALYSIS Appear/Color, Urine COLORLESS ()?? 04/10/2023 20:20 Specific Elizabeth, Urine 1.008 ()?? 04/10/2023 20:20 pH, Urine 6.5 ()?? 04/10/2023 20:20 Albumin, Urine TRACE (Abnormal)?? 04/10/2023 20:20 Glucose, Urine 2+ (Abnormal)?? 04/10/2023 20:20 Ketones, Urine NEGATIVE ()?? 04/10/2023 20:20 Bilirubin, Urine NEGATIVE ()?? 04/10/2023 20:20 Hemoglobin, Urine NEGATIVE ()?? 04/10/2023 20:20 Nitrite, Urine NEGATIVE ()?? 04/10/2023 20:20 Leukocyte, Urine NEGATIVE ()?? 04/10/2023 20:20 Urobilinogen NORMAL mg/dL ()?? 04/10/2023 20:20 WBC's, Urine <1 /HPF ()?? 04/10/2023 20:20 RBC's, Urine 2 /HPF ()?? 04/10/2023 20:20 Hyaline Cast 1 LPF ()?? 04/10/2023 20:20 Hold Urine Culture Testing available 48 hours from time of collection. ()?? 04/10/2023 20:20 ? URINE OTHER Protein, Total Urine Random 109 mg/dL ()?? 04/11/2023 09:06 TP/Cr Ratio 1.19 (High)?? 04/11/2023 09:06 Creatinine, Urine 92.1 mg/dL ()?? 04/11/2023 09:06 Est Creatinine Clearance 51.54 mL/min ()?? 04/12/2023 02:59 ?? VIROLOGY Influenza A PCR NEGATIVE ()?? 04/10/2023 16:59 Influenza B PCR NEGATIVE ()?? 04/10/2023 16:59 RSV PCR NEGATIVE ()?? 04/10/2023 16:59 COVID-19 by RT-PCR NEGATIVE ()?? 04/10/2023 16:59 COVID-19 PCR Specimen Source NASAL ()?? 04/10/2023 16:59 COVID-19 PCR Result NEGATIVE ()?? 04/10/2023 16:59 ? Microbiology ?? COVID-19 (Novel Coronavirus), Rapid PCR?? Completed?? Source: Nasal Body Site: Nose Collected Dt/Tm: 04/10/2023 17:05 Last Updated Dt/Tm: 04/10/2023 18:21 MRSA PCR Nasal Swab?? Completed?? Source: Swab Body Site: Nares Both Collected Dt/Tm: 04/10/2023 21:53 Last Updated Dt/Tm: 04/11/2023 14:53 ? 35??minutes spent on discharge * Landon Condon RN: PERFORM Event Display: Discharge/Transfer Note Hospital Authored Date: [id number] Nursing Discharge Note Entered On: 04/12/2023 10:48 EDT Performed On: 04/12/2023 10:45 EDT by Landon Condon RN Nursing Discharge Note 2 Discharge Time : 04/12/2023 11:57 EDT Landon Condon RN - 04/12/2023 11:57 EDT Discharge Level of Care at Discharge : Home/Long Term/Foster Care Patient Left Unit Via : Wheelchair Patient Accompanied Off Unit with : Responsible adult DC Instructions Provided & Signed by Pt : Yes Patient Understands D/C Instructions : Yes Patient Instructions Discharge Signed : Yes Did Pt have Specialty Bed or Wound Vac : No Landon Condon RN - 04/12/2023 10:45 EDT * Landon Condon RN: PERFORM Event Display: Patient Education/Instruction Authored Date: [id number] Inpatient Adult Discharge Instructions [address] [id number] Name: RENU CONTE : 1975 Visit: 04/10/2023 20:09:00 Current Date: 04/12/2023 10:48 Account: [id number] Inpatient Adult Discharge Instructions We would like to thank you for allowing us to assist you with your healthcare needs. The following includes patient education materials and information regarding your injury/illness. Our entire staffstrives to provide an excellent experience for our patients and their families. PLEASE ENSURE YOU FOLLOW-UP PER THE INSTRUCTIONS BELOW! ?? YOUR OPINION IS IMPORTANT TO US! Please complete the survey you may receive by mail or email. Your feedback will be used to make improvements to the healthcare experiences of our patients and their families. Surveys are administered by [employer]. ?? If further treatment with your primary care physician or another doctor is recommended, it is important for you to keep the appointment. Call your primary care physician or return to the Emergency Department immediately if your condition worsens, fails to improve, or new symptoms develop. If you need to find a doctor, you can call [facility] for a referral at [phone] or toll free at [phone] or log in to [email or web address] ?? You can view and manage your care through the patient portal or by using a health care clarice of your choosing. [employer] is a website that allows you to securely view your medical information including your hospital discharge summary, office visit summaries, medications and follow-up visits. You can also request appointments, renew medications, and request access to your medical information using a health care clarice of your choosing, or just ask a question. You can enroll at [email or web address] or register during your next office visit. You have been discharged from [facility], Patient Care Unit: D3B. If you have any questions regarding these instructions after you leave, please call us and we will be happy to assist you. [facility] Your Care Team Attending Physician Homer Fritz MD Consulting Providers Darion Ramirez MD Discharging Providers Homer Fritz MD Reason for Admission pt went to pcp for two weeks of sob and chest pressure. ems found L lung sounds diminished, placed on cpap. no increased wob or hypoxia. sig history of chf and copd with edema throughout. Your Diagnosis CHF exacerbation Hypertension Peripheral artery disease Tests Performed Below is a partial list of the tests performed during your hospitalization. You may have had other tests and procedures not included in this list. Please discuss all test results with your provider. Basic Metabolic Panel Beta Hydroxybutyrate BUN POC CARTRIDGE Calcium Ionized CALCIUM IONIZED POC CART CBC CBC w/ Differential CHLORIDE POC CARTRIDGE Comprehensive Metabolic Panel COVID-19 (Novel Coronavirus), Rapid PCR COVID-19, RSV, FLU A/B PCR CREATININE POC CARTRIDGE D Dimer GLUCOSE POC GLUCOSE POC CARTRIDGE HEMATOCRIT POC CARTRIDGE HEMOGLOBIN POC CARTRIDGE High??Sensitivity??Troponin T Magnesium Level MRSA PCR Nasal Swab Phosphorus Level POTASSIUM POC CARTRIDGE PROBNP PROCALCITONIN, SERUM Protein/Creatinine Ratio Urine SODIUM POC CARTRIDGE Troponin T, High Sensitivity Urinalysis w/hold for Urine Culture US Doppler Ext Lower Venous Bilat XR Chest Portable Primary Care Provider Not on Staff, PCP Advance Directive Health Care Proxy on File Yes - Health Care Proxy Discharge Vitals Temperature: 98.2 DegF Height: 164 cm Pulse Rate:??103 bpm??High Weight: 62.6 kg Respiratory Rate: 18 br/min Body Mass Index: 23.27 kg/m2 Systolic Blood Pressure: 121 mm Hg Body surface area: 1.69 Systolic Blood Pressure:??147 mm Hg??High ?? Diastolic Blood Pressure: 76 mm Hg ?? Diastolic Blood Pressure: 72 mm Hg ?? Oxygen Saturation:??91 %??Low ?? Studies Pending All tests and labs ordered during this hospital stay have been completed unless listed below. Please discuss all pending results with your provider listed above in these instructions. ?? Add On Lab Order Hemoglobin A1C (Monitoring) (HEMOGLOBIN A1C) What to do next Instructions From Your Doctor Discharge Orders Discharge Medications RENU CONTE :1975 Visit Date:04/10/2023 Medications: Please continue your medications until treatment is completed or stopped by your provider. Medications not listed below should be discontinued. Discuss any questions related to medications with your provider. What How Much When Instructions Next Dose Unchanged Albuterol (Albuterol (Eqv- Proventil HFA) 90 mcg/ inh inhalation aerosol) 2 puff(s) Inhalation Every 6 hours resume home schedule Unchanged Amlodipine (amLODIPine 10 mg oral tablet) 1 tab(s) Oral Daily tomorrow, resume home schedule Unchanged Aspirin (aspirin 81 mg oral delayed release tablet) 1 tab(s) Oral Daily tomorrow, resume home schedule Unchanged Atorvastatin (Lipitor 40 mg oral tablet) 1 tab(s) Oral Daily tomorrow, resume home schedule Unchanged Escitalopram (escitalopram 10 mg oral tablet) 1 tab(s) Oral Daily tomorrow, resume home schedule Unchanged Furosemide (Lasix 20 mg oral tablet) 1 tab(s) Oral Daily at Bedtime bedtime tonight Unchanged Furosemide (Lasix 40 mg oral tablet) 1 tab(s) Oral Daily tomorrow, resume home schedule Unchanged Gabapentin (gabapentin 300 mg oral capsule) 1 capsule Oral 3 times a day resume home schedule Unchanged hydrALAZINE (hydrALAZINE 25 mg oral tablet) 2 tab(s) Oral 3 times a day Duration: 14 Days continue it until lisinopril is held off. Once lisinopril resumed, stop this medication ?? resume home schedule Unchanged Metoprolol (Toprol XL 100 mg oral tablet, extended release) 1 tab(s) Oral Daily tomorrow, resume home schedule Unchanged Miscellaneous Rx (BMP and UA in 5 days) See instructions Please repeat the blood work and urine study, And follow up with your PCP. Thanks ?? Unchanged Nitroglycerin (nitroglycerin 0.3 mg sublingual tablet) See instructions 1 tablet Sublingual, take PRN for chest pain (if you need to take >1, call PCP), As needed for for chest pain ?? as needed Unchanged Pantoprazole (pantoprazole 40 mg oral delayed release tablet) 40 Milligram Oral Daily Duration: 30 Days tomorrow, resume home schedule Unchanged PEG Electrolyte Solution (PEG-3350 with Electrolytes (Eqv-GoLYTELY) oral powder for reconstitution) See instructions 1 glass every 15-30 minutes until finished ?? Unchanged Tiotropium (Spiriva Respimat 1.25 mcg/ inh inhalation aerosol) 2 puff(s) Inhalation Daily tomorrow, resume home schedule Unchanged Trazodone (traZODone 50 mg oral tablet) 0.5 tab(s) Oral Daily at Bedtime bedtime Test Results Below is a partial list of the most recent Laboratory test results done prior to this discharge. You may have had other tests and procedures not included in this list. Please discuss all test resultswith your provider. Est Creatinine Clearance - 51.54 mL/min (04/12/2023) Basic Metabolic Panel (04/12/2023) ???Sodium - 138 mmol/L???Potassium - 6.0 mmol/L???Chloride - 103 mmol/L???Bicarbonate Level - 24 mmol/L???Anion Gap - 11???Glucose Level - 310 mg/dL???BUN - 30 mg/dL???Creatinine-Blood - 1.5 mg/dL???Estimated GFR Creatinine - 55 ML/MIN/1.73 M2???Calcium - 9.2 mg/dL Beta Hydroxybutyrate (04/10/2023) ? ?Beta Hydroxybutyrate - <0.05 mmol/L BUN POC CARTRIDGE (04/10/2023) ???BUN (POC) POC Cartridge - 38 mg/dL Calcium Ionized (04/10/2023) ???Calcium, Ionized pH Corrected - 1.25 mmol/L CALCIUM IONIZED POC CART (04/10/2023) ???Ionized Calcium (POC) POC Cartridge - 1.17 mmol/L CBC (04/12/2023) ???WBC - 12.1 k/mm3???RBC - 4.01 m/mm3???Hgb - 10.2 Gm/dL???Hct - 32.7 %???MCV - 81.5 femtoliters???MCH - 25.4 pg???MCHC - 31.2 g/dL???Platelet Count - 264 k/mm3???RDW-SD - 53.9 femtoliters???MPV - 11.6 femtoliters???Nucleated RBC (Automated) - 0.0 #/100 WBC'S???Abs. NRBC - 0.0 k/mm3 CBC w/ Differential (04/10/2023) ???WBC - 13.4 k/mm3???RBC - 3.93 m/mm3???Hgb - 10.3 Gm/dL???Hct - 32.7 %???MCV - 83.2 femtoliters???MCH - 26.2 pg???MCHC - 31.5 g/dL???Platelet Count - 280 k/mm3???RDW-SD - 55.6 femtoliters???MPV - 11.5 femtoliters???Nucleated RBC (Automated) - 0.0 #/100 WBC'S???Abs. NRBC - 0.0 k/mm3???Abs. Neut - 10.1 k/mm3???Abs. Lymph - 2.0 k/mm3???Abs. Ness - 0.9 k/mm3???Abs. Eo - 0.2 k/mm3???Abs. Baso - 0.1 k/mm3???Neut % - 75.9 %???Lymph % - 15.0 %???Ness % - 6.9 %???Eos % - 1.3 %???Baso % - 0.4 %???Imm Gran - 0.5 %???Abs. Imm Gran - 0.1 k/mm3 CHLORIDE POC CARTRIDGE (04/10/2023) ???Chloride (POC) POC Cartridge - 108 mmol/L Comprehensive Metabolic Panel (04/11/2023) ???Sodium - 143 mmol/L???Potassium - 4.5 mmol/L???Chloride - 109 mmol/L???Bicarbonate Level - 23 mmol/L???Anion Gap - 11???Glucose Level - 104 mg/dL???BUN - 33 mg/dL???Creatinine-Blood - 1.3 mg/dL???Estimated GFR Creatinine - 67 ML/MIN/1.73 M2???Calcium - 9.3 mg/dL???Protein, Total - 6.1 Gm/dL???Alb umin - 3.7 Gm/dL???AG Ratio - 1.5???Alkaline Phosphatase - 125 units/L???AST (SGOT) - 19 units/L???ALT (SGPT) - 37 units/L? ?Bilirubin, Total - <0.2 mg/dL COVID-19 (Novel Coronavirus), Rapid PCR (04/10/2023) ???COVID-19 by RT-PCR - NEGATIVE COVID-19, RSV, FLU A/B PCR (04/10/2023) ???Influenza A PCR - NEGATIVE???Influenza B PCR - NEGATIVE???RSV PCR - NEGATIVE???COVID-19 PCR Specimen Source - NASAL???COVID-19 PCR Result - NEGATIVE CREATININE POC CARTRIDGE (04/10/2023) ???Creatinine (POC) POC Cartridge - 1.4 mg/dL D Dimer (04/10/2023) ???D-Dimer - 0.34 mg/L FEU GLUCOSE POC (04/12/2023) ???Glucose, POC - 298 mg/dL GLUCOSE POC CARTRIDGE (04/10/2023) ???Glucose (POC) POC Cartridge - 376 HEMATOCRIT POC CARTRIDGE (04/10/2023) ???Hematocrit (POC) POC Cartridge - 31 % HEMOGLOBIN POC CARTRIDGE (04/10/2023) ???Hemoglobin (POC) POC Cartridge - 10.5 Gm/dL High??Sensitivity??Troponin T (04/10/2023) ???High Sensitivity Troponin (HSTnT) - 17 ng/L Magnesium Level (04/11/2023) ???Magnesium - 2.0 mg/dL MRSA PCR Nasal Swab (04/11/2023) ???MRSA PCR Result - Negative, MRSA target DNA not detected.???S Aureus PCR Result - Positive, SA target DNA detected. Phosphorus Level (04/11/2023) ???Phosphorus - 4.2 mg/dL POTASSIUM POC CARTRIDGE (04/10/2023) ???Potassium (POC) POC Cartridge - 5.3 mmol/L PROBNP (04/10/2023) ???Nt-Probnp - 692 pg/mL PROCALCITONIN, SERUM (04/10/2023) ???Procalcitonin - 0.06 ng/mL Protein/Creatinine Ratio Urine (04/11/2023) ???Protein, Total Urine Random - 109 mg/dL???TP/Cr Ratio - 1.19???Creatinine, Urine - 92.1 mg/dL SODIUM POC CARTRIDGE (04/10/2023) ???Sodium (POC) POC Cartridge - 137 mmol/L Troponin T, High Sensitivity (04/10/2023) ???High Sensitivity Troponin (HSTnT) - 18 ng/L Urinalysis w/hold for Urine Culture (04/10/2023) ???Appear/Color, Urine - COLORLESS???Specific Elizabeth, Urine - 1.008???pH, Urine - 6.5???Albumin, Urine - TRACE???Glucose, Urine - 2+???Ketones, Urine - NEGATIVE???Bilirubin, Urine - NEGATIVE???Hemoglobin, Urine - NEGATIVE???Nitrite, Urine - NEGATIVE???Leukocyte, Urine - NEGATIVE???Urobilinogen - NORMAL? ?WBC's, Urine - <1 /HPF? ?RBC's, Urine - 2 /HPF? ?Hyaline Cast - 1 LPF? ?Hold Urine Culture - Testing available 48 hours from time of collection. Allergies (NKA means No Known Allergies) Trulicity metFORMIN Problems Active Problems??(1) Presence of implanted infusion pump?? Education Materials Below is the list of Educational Leaflet Providered with your Discharge Instructions. Valuables and Belongings I fully understand and agree that [facility] accepts no responsibility for all my personal property including clothing, toilet articles, radios, jewelry, dentures, hearing aids, rings, money, or any other property that is in my possession or is brought to me after admission. I understand certain valuables may be placed in a hospital safe for a short period of time. I understand that the hospital is not liable for loss or damage due to accident, fire, or other natural occurrence while said property is in the safe. I accept full responsibility for any personal property that I keep with me, and will not hold the hospital responsible in case of loss or disappearance. I acknowledge that i have been encouraged to send valuables and belongings home. ?? Review of Valuable and Belonging List: With patient Date for Pt to Sign Valuables/Belongings: 04/11/23 17:34:00 ?? Other Discharge Information ? Pulmonary Rehab Status?? Pulmonary Rehab Discharge Status?? Respiratory Rate: 18 br/min ? Common Emergency Awareness Tips IS IT A STROKE? Act FAST and Check for these signs: FACE Does the face look uneven? ARM Does one arm drift down? SPEECH Does their speech sound strange? TIME Call at any sign of stroke ?? Heart Attack Signs Chest discomfort: Most heart attacks involve discomfort in the center of the chest and lasts more than a few minutes, or goes away and comes back. It can feel like uncomfortable pressure, squeezing, fullness or pain. Discomfort in upper body: Symptoms can include pain or discomfort in one or both arms, back, neck, jaw or stomach. Shortness of breath: With or without discomfort. Other signs: Breaking out in a cold sweat, nausea, or lightheaded. Remember, MINUTES DO MATTER. If you experience any of these heart attack warning signs, call to get immediate medical attention! ?? Smoking can increase your chances of developing chronic health problems and can cause harmful effects to other family members in your house. If you smoke, you are strongly encouraged to quit. Please call [facility] [employer] Link at [phone] or [phone] ([phone]) or log in to [email or web address] for referrals to smoking cessation programs. ?? 667 Suicide & Crisis Lifeline is available 22/05 if you or someone you know needs to find a reason to keep living. By calling 928 you'll be connected to a skilled, trained counselor at a crisis center in your area. INPATIENT DISCHARGE INSTRUCTIONS SIGNATURE RENU STARKEY Location:[facility] Registration Date and Time:04/10/2023 20:09 EDT Primary Care Physician: Not on Staff, PCP Attending Physician: Lam MICHELLE, Homer Short, I RENU CONTE, have received the above patient education materials/instructions and have verbalized understanding. If ambulance or transport services are being used I further acknowledge being givena choice of service. ?? If you need to contact me, please call me at this number: . Patient/Black Off Worker Name: Patient/Black Off Worker Signature: Relationship to Patient: Witness Name/Signature: Date: Patient Care team information Care Team Personnel Name: Rachel Williamson RN Position: [facility] RN Member Role: Primary Care Nurse Name: Not on Staff, PCP Position: [facility] Physician (General Medicine) Member Role: PCP Name: Shelley Emmanuel RN Position: [facility] RN Member Role: Primary Care Nurse Name: Jessy Abad RN Position: [facility] RN Member Role: Primary Care Nurse Name: Shakira CANSECO Attending Position: [facility] ED Medicine Name: Nadege Saldaña Position: [facility] ED RN W/OE and Tasks Member Role: Patient Care Provider Name: Silke Christensen Position: [facility] ED TA [facility] Member Role: Loan Processor Care Team Related Persons Name: VELMA ASIF Address: [address] [address]
--- OUTSIDE RECORDS SUMMARY | 2023-10-05 00:44 | XMS_ITS | Continuity of Care Document ---
Author Name Unknown Organization [facility] ter Address [address] [place] [phone]- Care Team Providers Care Fitting Room Operator Name Role Phone Not on Staff, PCP Primary Care Physician Unavail able Encounter [facility] [place] Date(s): 07/20/22 - 07/25/[address] [phone]- Encounter Diagnosis Chest pain(Final) - 07/20/22 Abdominal pain(Final) - 07/20/22 Nausea and vomiting(Final) - 07/20/22 Chest pain(Final) - 07/20/22 Nausea and vomiting(Final) - 07/20/22 Abdominal pain(Final) - 07/20/22 Nausea and vomiting(Final) - 07/20/22 Abdominal pain(Final) - 07/20/22 Chest pain(Final) - 07/20/22 Discharge Disposition: A-D/C Home Attending Physician: Fercho Moreira MD Admitting Physician: Cesar Bradley MD Referring Physician: Not on Staff, Referring MD Allergies, Adverse Reactions, Alerts Substance Reaction Severity Status metFORMIN Active Trulicity Active Immunizations Given and Recorded Vaccine Date Status Refusal Reason influenza virus vaccine, inactivated 07/22/22 Give n Medications Albuterol (Eqv-Proventil HFA) 90 mcg/inh inhalation aerosol 2 puffs, Inhalation, Every 6 hours, # 6.7 Gm, 0 Refills, Maintenance, 07/25/22 15:49:00 EDT, [facility], Partial fill upon patient request if the prescription is for a schedule II opioid drug., 165, cm, 04/11/22 8:29:00 EDT, Height, 59,... Start Date: 07/25/22 Status: Ordered amLODIPine 10 mg oral tablet 10 mg, 1, tablet, By Mouth, Daily, # 30 tablet, Refills 0, Tot. Refills 0, Maintenance, 04/11/22 11:16:00 EDT, Route to Pharmacy Electronically, [facility], Partial fill upon patient request if the prescription is for a schedule II opioi... Start Date: 04/11/22 Status: Ordered BMP and UA in 5 days BMP and UA in 5 days, See Instructions, # 1 each, Refills 0, Tot. Refills 0, Maintenance, Please repeat the blood work and urine study, And follow up with your PCP. Thanks, 04/11/22 11:38:00 EDT, Supply Start Date: 04/11/22 Status: Ordered escitalopram 10 mg oral tablet 1 tablet = 10 mg, By Mouth, Daily, # 90 tablet, 0 Refills, Maintenance, 04/10/22 15:54:00 EDT, Tablet, Partial fill upon patient request if the prescription is for a schedule II opioid drug. Start Date: 04/10/22 Status: Ordered gabapentin 300 mg oral capsule 300 mg, Capsule, By Mouth, 07/25/22 15:00:00 EDT Start Date: 07/25/22 Stop Date: 07/25/22 Status: Completed gabapentin 300 mg oral capsule 300 mg, 1, capsule, By Mouth, 3 times a day, # 90 capsule, Refills 5, Maintenance, 04/07/22 22:36:00 EDT, Partial fill upon patient request if the prescription is for a schedule II opioid drug. Start Date: 04/07/22 Status: Ordered hydrALAZINE 25 mg oral tablet 25 mg, 1, tablet, By Mouth, 3 times a day, continue it until lisinopril is held off. Once lisinopril resumed, stop this medication, # 42 tablet, Refills 0, Tot. Refills 0, Maintenance, 04/11/22 11:24:00 EDT, [facility] to Pharmacy Electron[facility], [facility]... Start Date: 04/11/22 Stop Date: 04/25/22 Status: Ordered Lipitor 40 mg oral tablet 1 tablet = 40 mg, By Mouth, Daily, # 30 tablet, 0 Refills, Maintenance, 04/08/22 3:19:00 EDT, Tablet, Partial fill upon patient request if the prescription is for a schedule II opioid drug. Start Date: 04/08/22 Status: Ordered metoclopramide 10 mg oral tablet 1 tablet = 10 mg, By Mouth, 3 times a day before meals and bedtime, for 7 days, # 28 tablet, 0 Refills, Acute 08/01/22 15:50:00 EDT, 07/25/22 15:50:00 EDT, Tablet, [facility], Partial fill upon patient request if the prescription is for... Start Date: 07/25/22 Stop Date: 08/01/22 Status: Ordered nitroglycerin 0.3 mg sublingual tablet See Instructions, PRN for chest pain, 1 tablet Sublingual, take PRN for chest pain (if you need to take >1, call PCP), # 30 tablet, 0 Refills, Maintenance, 04/11/22 11:08:00 EDT, Tablet, [facility], Partial fill upon patient request if t... Start Date: 04/11/22 Status: Ordered oxyCODONE 5 mg oral capsule = 2.5 mg, By Mouth, Every 6 hours, PRN as needed for pain, for 5 days, # 7 capsule, 0 Refills, Acute 07/30/22 15:50:00 EDT, 07/25/22 15:50:00 EDT, Capsule, [facility], Partial fill uponpatient request if the prescription is for a schedu... Start Date: 07/25/22 Stop Date: 07/30/22 Status: Ordered pantoprazole 40 mg oral delayed [...] mL, 0 Refills, Maintenance, 04/12/22 14:24:00 EDT, [facility]/pharmacy #[id number], Partial fill upon patient request if the prescription is for a schedule II opioid drug., 1 glass every 15-30 m... Start Date: 04/12/22 Status: Ordered Spiriva Respimat 1.25 mcg/inh inhalation aerosol 2 puffs, Inhalation, Daily, # 4 Gm, 0 Refills, Maintenance, 07/25/22 15:49:00 EDT, Aerosol, [facility], Partial fill upon patient request if [...] drug. Start Date: 04/07/22 Status: Ordered Results Orders for Microbiology Reports Name Date Blood Culture 07/20/22 Blood Culture #2 07/20/22 Microbiology Reports TEST:Blood Culture STATUS:Auth (Verified) BODY SITE: SOURCE:Blood COLLECTED DATE/TIME:07/20/22 6:36 PM Blood Culture SPECIMEN DESCRIPTION : BLOOD NO SITE SPECIAL REQUESTS : NONE CULTURE : NO GROWTH 5 DAYS. REPORT STATUS : FINAL 07/25/2022 TEST:Blood Culture, Second Order STATUS:Auth (Verified) BODY SITE: SOURCE:Blood COLLECTED DATE/TIME:07/20/22 6:35 PM Blood Culture, Second Order SPECIMEN DESCRIPTION : BLOOD RAC SPECIAL REQUESTS : NONE CULTURE : NO GROWTH 5 DAYS. REPORT STATUS : FINAL 07/25/2022 Radiology Reports * Exam Date Time Procedure Performing Provider Status 07/23/22 12:47 PM Chest Portable Tanesha Baker; Auth (Verified) Notes: (Chest Portable) Reason For Exam: CHF RESULT: Chest Portable Chest Portable Reason: CHF; Clinical Question(s): Pulmonary Edema COMPARISON: 04/07/2022. FINDINGS: LINES AND TUBES: None. LUNGS AND PLEURA: There is pulmonary vascular congestion and pulmonary edema. Underlying pneumonia cannot be excluded. Findings consistent with a small right pleural effusion. No pneumothorax. HEART, MEDIASTINUM AND DEVIN: Heart is normal in size. Normal mediastinal and hilar contour. BONES AND SOFT TISSUES: No acute abnormality. IMPRESSION: 1. Pulmonary vascular congestion and pulmonary edema. Underlying pneumonia cannot be excluded. 2. Findings consistent with a small right pleural effusion. WSN: [id number] Ordering Physician: Fercho Moreira Dictated By: Valentina Garcia MD Dictated Date/Time: 07/23/22 4:29 pm Reviewed By: Valentina Garcia MD Signed By: Valentina Garcia MD Signed Date/Time: 07/23/22 4:29 pm Transcribed By: SARIKA Transcribed Date/Time: 07/23/22 4:28 pm Vital Signs Most recent to oldest [Reference Range]: 1 2 3 Weight 61.05 kg (07/25/22 6:28 AM) 61.15 kg (07/24/22 9:40 AM) 59 kg (07/21/22 3:26 PM) Oxygen Saturation [94-100 %] 93 % *L* (07/25/22 4:05 PM) 91 % *L* (07/25/22 11:31 AM) 93 % *L* (07/25/22 8:21 AM) Pulse Rate [55-90 bpm] 81 bpm (07/25/22 4:05 PM) 76 bpm (07/25/22 11:31 AM) 71 bpm (07/25/22 8:21 AM) Blood Pressure [90-138/55-84 mm Hg] 164/75mm Hg *H* (07/25/22 4:05 PM) 131/65mm Hg (07/25/22 11:31 AM) 150/71mm Hg *H* (07/25/22 8:21 AM) Respiratory Rate [16-30 br/min] 19 br/min (07/25/22 4:24 PM) 20 br/min (07/25/22 4:05 PM) 16 br/min (07/25/22 11:31 AM) Temperature [96.8-100.4 DegF] 98 DegF (07/25/22 4:05 PM) 97.9 DegF (07/25/22 11:31 AM) 98.2 DegF (07/25/22 8:21 AM) Liters per Minute 3 L/min (07/25/22 8:21 AM) 3 L/min (07/25/22 4:00 AM) 8 L/min (07/25/22 1:00 AM) Mode of Delivery (Oxygen) Room air (07/25/22 4:05 PM) Room air (07/25/22 11:31 AM) High flow nasal cannula (07/25/22 8:21 AM) Blood pressure sites Arm, left (07/25/22 4:05 PM) Arm, right (07/25/22 11:31 AM) Arm, right (07/25/22 8:21 AM) Temperature Route Oral (07/25/22 4:05 PM) Oral (07/25/22 11:31 AM) Oral (07/25/22 8:21 AM) Weight Obtained Via Standing scale (07/25/22 6:28 AM) Social History Social History Type Response Smoking Status 5-9 cigarettes (betw een 1/4 to 1/2 pack)/day in last 30 days; Interested in cessation: Yes entered on: 04/07/22 Sex Note * [employer] , CIS S: TRANSCRIBE Valentina Garcia MD: VERIFY Event Display: Result: Authored Date: [id number] Chest Portable Reason: CHF; Clinical Question(s): Pulmonary Edema COMPARISON: 04/07/2022. FINDINGS: LINES AND TUBES: None. LUNGS AND PLEURA: There is pulmonary vascular congestion and pulmonary edema. Underlying pneumonia cannot be excluded. Findings consistent with a small right pleural effusion. No pneumothorax. HEART, MEDIASTINUM AND DEVIN: Heart is normal in size. Normal mediastinal and hilar contour. BONES AND SOFT TISSUES: No acute abnormality. IMPRESSION: 1. Pulmonary vascular congestion and pulmonary edema. Underlying pneumonia cannot be excluded. 2. Findings consistent with a small right pleural effusion. WSN: [id number] Ordering Physician: Fercho Moreira Dictated By: Valentina Garcia MD Dictated Date/Time: 07/23/22 4:29 pm Reviewed By: Valentina Garcia MD Signed By: Valentina Garcia MD Signed Date/Time: 07/23/22 4:29 pm Transcribed By: SARIKA Transcribed Date/Time: 07/23/22 4:28 pm Care Team Personnel Name: Not on Staff, PCP
--- OUTSIDE RECORDS SUMMARY | 2023-10-05 00:44 | XMS_ITS | Continuity of Care Document ---
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 Name Role Phone Not on Staff, PCP Primary Care Physician Unavail able Encounter [facility] Date(s): 10/17/22 - 11/16/22 [facility] [address] [place] [phone]- Attending Physician: Barbara Kingston Admitting Physician: Barbara Kingston Referring Physician: Barbara Kingston Allergies, Adverse Reactions, Alerts Substance Reaction Severity Status metFORMIN Active Trulicity Active Immunizations Given and Recorded Vaccine Date Status Refusal Reason influenza virus vaccine, inactivated 07/22/22 Give n Medications Albuterol (Eqv-Proventil HFA) 90 mcg/inh inhalation aerosol 2 puffs, Inhalation, Every 6 hours, # 6.7 Gm, 0 Refills, Maintenance, 07/25/22 15:49:00 EDT, [facility], Partial fill upon patient request if the prescription is for a schedule II opioid drug., 165, cm, 04/11/22 8:29:00 EDT, Height, 59,... Start Date: 07/25/22 Status: Ordered amLODIPine 10 mg oral tablet 10 mg, 1, tablet, By Mouth, Daily, # 30 tablet, Refills 0, Tot. Refills 0, Maintenance, 04/11/22 11:16:00 EDT, Route to Pharmacy Electronically, [facility], Partial fill upon patient request if [...] 11:24:00 EDT, Route to Pharmacy Electronically, [facility]... Start Date: 04/11/22 Stop Date: 04/25/22 Status: [...] Refills, Maintenance, 04/11/22 11:08:00 EDT, Tablet, [facility], Partial fill upon patient request [...] mL, 0 Refills, Maintenance, 04/12/22 14:24:00 EDT, [facility]acy #[id number], Partial fill upon patient request if the prescription is for a schedule II opioid drug., 1 glass every 15-30 m... Start Date: 04/12/22 Status: Ordered Spiriva Respimat 1.25 mcg/inh inhalation aerosol 2 puffs, Inhalation, Daily, # 4 Gm, 0 Refills, Maintenance, 07/25/22 15:49:00 EDT, Aerosol, [facility], Partial fill upon patient request if [...] opioid drug. Start Date: 04/07/22 Status: Ordered Social History Social History Type Response Smoking Status 5-9 cigarettes (betw een 1/4 to 1/2 pack)/day in last 30 days; Interested in cessation: Yes entered on: 04/07/22 Sex Patient Care team information Care Team Personnel Name: Rachel Williamson RN Position: [facility] RN Member Role: Primary Care Nurse Name: Not on Staff, PCP Position: [facility] Physician (General Medicine) Member Role: PCP Care Team Related Persons Name: VELMA ASIF Address: home [address] [place] [id number]
--- OUTSIDE RECORDS SUMMARY | 2023-10-05 00:44 | XMS_ITS | Continuity of Care Document ---
Author Name Unknown Organization [facility] ter Address [address] [place] [address]- Care Team Providers Care Commercial Lending Assistant Name Role Phone Not on Staff, PCP Primary Care Physician Unavail able Encounter [facility] [place] Date(s): 04/12/22 - 06/23/[address] [address]- Attending Physician: Nathanael Ford MD Admitting Physician: Nathanael Ford MD Allergies, Adverse Reactions, Alerts Substance Reaction Severity Status metFORMIN Active Trulicity Active Medications amLODIPine 10 mg oral tablet 10 mg, 1, tablet, By Mouth, Daily, # 30 tablet, Refills 0, Tot. Refills 0, Maintenance, 04/11/22 11:16:00 EDT, Route to Pharmacy Electronically, [facility], Partial fill upon patient [...] 04/11/22 11:24:00 EDT, Route to Pharmacy Electronically, [facility]... Start Date: 04/11/22 Stop Date: 04/25/22 [...] 0 Refills, Maintenance, 04/11/22 11:08:00 EDT, Tablet, [facility], Partial fill upon patient request if t... Start Date: 04/11/22 Status: Ordered PEG-3350 with Electrolytes (Eqv-GoLYTELY) oral powder for reconstitution See Instructions, 1 glass every 15-30 minutes until finished, # 4,000 mL, 0 Refills, Maintenance, 04/12/22 14:24:00 EDT, [facility]/pharmacy #[id number], Partial fill upon patient request if the prescription is for a schedule II opioid drug., 1 glass every 15-30 m... Start Date: 04/12/22 Status: Ordered Toprol XL 100 mg oral [...] in cessation: Yes entered on: 04/07/22 Sex Care Team Personnel Name: Not on Staff, PCP
--- OUTSIDE RECORDS SUMMARY | 2023-10-05 00:44 | XMS_ITS | Continuity of Care Document ---
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 Role Phone Not on Staff, PCP Primary Care Physician Unavail able Encounter [facility] [place] Date(s): 07/19/22 - 11/16/22 [facility] [address] [place] [phone]- Attending Physician: Bushra Rodarte MD Admitting Physician: Bushra Rodarte MD Referring Physician: Not on Staff, Referring MD Allergies, Adverse Reactions, Alerts Substance Reaction Severity Status metFORMIN Active Trulicity Active Immunizations Given and Recorded Vaccine Date Status Refusal Reason influenza virus vaccine, inactivated 07/22/22 Give n Medications Albuterol (Eqv-Proventil HFA) 90 mcg/inh inhalation aerosol 2 puffs, Inhalation, Every 6 hours, # 6.7 Gm, 0 Refills, Maintenance, 07/25/22 15:49:00 EDT, [facility], Partial fill upon patient request if the prescription is for a schedule II opioid drug., 165, cm, 04/11/22 8:29:00 EDT, Height, 59,... Start Date: 07/25/22 Status: Ordered amLODIPine 10 mg oral tablet 10 mg, 1, tablet, By Mouth, Daily, # 30 tablet, Refills 0, Tot. Refills 0, Maintenance, 04/11/22 11:16:00 EDT, Route to Pharmacy Electronically, [facility], Partial fill upon patient [...] 04/11/22 11:24:00 EDT, [facility] Pharm[facility], [facility]... Start Date: 04/11/22 Stop Date: 04/25/22 [...] 0 Refills, Maintenance, 04/11/22 11:08:00 EDT, Tablet, [facility], Partial fill upon patient [...] 0 Refills, Maintenance, 04/12/22 14:24:00 EDT, [facility]acy #[id number], Partial fill upon patient request if the prescription is for a schedule II opioid drug., 1 glass every 15-30 m... Start Date: 04/12/22 Status: Ordered Spiriva Respimat 1.25 mcg/inh inhalation aerosol 2 puffs, Inhalation, Daily, # 4 Gm, 0 Refills, Maintenance, 07/25/22 15:49:00 EDT, Aerosol, [facility], Partial fill upon patient [...] Team Personnel Name: Rachel Williamson RN Position: [facility] RN Member Role: Primary Care Nurse Name: Not on Staff, PCP Position: [facility] Physician (General Medicine) Member Role: PCP Care Team Related Persons Name: VELMA ASIF Address: home [address] [place] [id number]
--- OUTSIDE RECORDS SUMMARY | 2023-10-05 00:44 | XMS_ITS | Continuity of Care Document ---
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 Role Phone Not on Staff, PCP Primary Care Physician Unavail able Encounter [facility] Date(s): 08/10/22 - 09/09/22 [facility] [address] [place] [phone]- [place] Allergies, Adverse Reactions, Alerts Substance Reaction Severity Status metFORMIN Active Trulicity Active Immunizations Given and Recorded Vaccine Date Status Refusal Reason influenza virus vaccine, inactivated 07/22/22 Give n Medications Albuterol (Eqv-Proventil HFA) 90 mcg/inh inhalation aerosol 2 puffs, Inhalation, Every 6 hours, # 6.7 Gm, 0 Refills, Maintenance, 07/25/22 15:49:00 EDT, [facility], Partial fill upon patient request if the prescription is for a schedule II opioid drug., 165, cm, 04/11/22 8:29:00 EDT, Height, 59,... Start Date: 07/25/22 Status: Ordered amLODIPine 10 mg oral tablet 10 mg, 1, tablet, By Mouth, Daily, # 30 tablet, Refills 0, Tot. Refills 0, Maintenance, 04/11/22 11:16:00 EDT, Route to Pharmacy Electronically, [facility], Partial fill upon patient [...] 04/11/22 11:24:00 EDT, [facility] Pharm[facility], [facility]... Start Date: 04/11/22 Stop Date: 04/25/22 [...] 0 Refills, Maintenance, 04/11/22 11:08:00 EDT, Tablet, [facility], Partial fill upon patient [...] mL, 0 Refills, Maintenance, 04/12/22 14:24:00 EDT, [facility]/pharmacy #[id number], Partial fill upon patient request if the prescription is for a schedule II opioid drug., 1 glass every 15-30 m... Start Date: 04/12/22 Status: Ordered Spiriva Respimat 1.25 mcg/inh inhalation aerosol 2 puffs, Inhalation, Daily, # 4 Gm, 0 Refills, Maintenance, 07/25/22 15:49:00 EDT, Aerosol, [facility], Partial fill upon patient [...] Team Personnel Name: Rachel Williamson RN Position: [facility] RN Member Role: Primary Care Nurse Name: Not on Staff, PCP Position: [facility] Physician (General Medicine) Member Role: PCP Care Team Related Persons Name: VELMA ASIF Address: [place] [address]
--- OUTSIDE RECORDS SUMMARY | 2023-10-05 00:44 | XMS_ITS | Continuity of Care Document ---
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 Refills 0, Maintenance, 04/11/22 11:16:00 EDT, Route to Pharmacy Electronically, [facility], Partial fill upon [...] 04/11/22 11:24:00 EDT, Route to Pharmacy Electronically, [facility]... Start Date: 04/11/22 Stop Date: [...] 0 Refills, Maintenance, 04/11/22 11:08:00 EDT, Tablet, [facility], Partial fill upon patient request if t... Start Date: 04/11/22 Status: Ordered PEG-3350 with Electrolytes (Eqv-GoLYTELY) oral powder for reconstitution See Instructions, 1 glass every 15-30 minutes until finished, # 4,000 mL, 0 Refills, Maintenance, 04/12/22 14:24:00 EDT, [facility]/pharmacy #[id number], Partial fill upon patient [...]
--- OUTSIDE RECORDS SUMMARY | 2023-10-05 00:44 | XMS_ITS | Continuity of Care Document ---
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 Name Role Phone Not on Staff, PCP Primary Care Physician Unavail able Encounter [facility] [place] Date(s): 03/20/23 - 04/19/23 [facility] [address] [place] [address]- [place] Allergies, Adverse Reactions, Alerts Substance Reaction Severity Status metFORMIN Active Trulicity Active Immunizations Given and Recorded Vaccine Date Status Refusal Reason influenza virus vaccine, inactivated 07/22/22 Give n Medications Albuterol (Eqv-Proventil HFA) 90 mcg/inh inhalation aerosol 2 puffs, Inhalation, Every 6 hours, # 6.7 Gm, 0 Refills, Maintenance, 07/25/22 15:49:00 EDT, [facility], Partial fill upon patient request if the prescription is for a schedule II opioid drug., 165, cm, 04/11/22 8:29:00 EDT, Height, 59,... Start Date: 07/25/22 Status: Ordered amLODIPine 10 mg oral tablet 10 mg, 1, tablet, By Mouth, Daily, # 30 tablet, Refills 0, Tot. Refills 0, Maintenance, 04/11/22 11:16:00 EDT, Route to Pharmacy Electronically, [facility], Partial fill upon patient request if the prescription is for a schedule II opioi... Start Date: 04/11/22 Status: Ordered aspirin 81 mg oral delayed release tablet [...] Status: Ordered hydrALAZINE 25 mg oral tablet 50 mg, 2, tablet, By Mouth, 3 times a day, continue it until lisinopril is held off. Once lisinopril resumed, stop this medication, # 84 tablet, Refills 0, Tot. Refills 0, Maintenance, 04/11/22 11:24:00 EDT, Route to Pharmacy Electronically, [facility]... Start Date: 04/11/22 Stop Date: 04/25/22 Status: Ordered insulin lispro 100 u/ml subcutaneous injection 7-15 units, Subcutaneous Injection, 3 times a day before meals, << Sliding Scale Comments >> 100 - 129 7 units Call if less than 70 130 - 159 9 units 160 - 189 11 units 190 - 219 13 [id number] - 249 15 units Call if greater [...] 0 Refills, Maintenance, 04/11/22 11:08:00 EDT, Tablet, [facility], Partial fill upon patient request [...] Refills, Maintenance, 04/12/22 14:24:00 EDT, [facility]/pharmacy #[id number], Partial fill upon patient request if the prescription is for a schedule II opioid drug., 1 glass every 15-30 m... Start Date: 04/12/22 Status: Ordered Spiriva Respimat 1.25 mcg/inh inhalation aerosol 2 puffs, Inhalation, Daily, # 4 Gm, 0 Refills, Maintenance, 07/25/22 15:49:00 EDT, Aerosol, [facility], Partial fill upon patient request [...] cessation: Yes entered on: 04/07/22 Sex Male Patient Care team information Care Team Personnel Name: Rachel Williamson RN Position: S RN Member Role: Primary Care Nurse Name: Not on Staff, PCP Position: [facility] Physician (General Medicine) Member Role: PCP Name: Shelley Emmanuel RN Position: S RN Member Role: Primary Care Nurse Name: Jessy Abad RN Position: S RN Member Role: Primary Care Nurse Care Team Related Persons Name: VELMA ASIF Address: home [address] [place] [id number]
--- OUTSIDE RECORDS SUMMARY | 2023-10-05 00:44 | XMS_ITS | Continuity of Care Document ---
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 [employer] Name Role Phone Zari Henry MD Primary Care Physician [phone] Encounter [facility] [place] Date(s): 04/11/22 - 04/11/[address] [address]- Encounter Diagnosis Chest pain(Final) - 04/07/22 Discharge Disposition: A-D/C Home Attending Physician: Delmis Jackson MD Admitting Physician: Kaiden Gaitan MD Referring Physician: Not on Staff, Referring MD Allergies, Adverse Reactions, Alerts Substance Reaction Severity Status metFORMIN Active Trulicity Active Medications amLODIPine 10 mg oral tablet 10 mg, 1, tablet, By Mouth, Daily, # 30 tablet, Refills 0, Tot. Refills 0, Maintenance, 04/11/22 11:16:00 EDT, Route to Pharmacy Electronically, [facility], Partial fill upon patient request if the prescription is for a schedule II opioi... Start Date: 04/11/22 Status: Ordered AmLODipine Tablet 10 mg, Tablet, By Mouth, 04/11/22 9:00:00 EDT Start Date: 04/11/22 Stop Date: 04/11/22 Status: Completed BMP and UA in 5 days BMP [...] oral capsule 300 mg, Capsule, By Mouth, 04/11/22 9:00:00 EDT Start Date: 04/11/22 Stop Date: 04/11/22 Status: Completed hydrALAZINE 25 mg oral tablet 25 mg, 1, tablet, By Mouth, 3 times a day, continue it until lisinopril is held off. Once lisinopril resumed, stop this medication, # 42 tablet, Refills 0, Tot. Refills 0, Maintenance, 04/11/22 11:24:00 EDT, Route to Pharmacy Electronically, [facility]... Start Date: 04/11/22 Stop Date: 04/25/22 Status: Ordered hydrALAZINE 25 mg oral tablet 25 mg, Tablet, By Mouth, 04/11/22 9:00:00 EDT Start Date: 04/11/22 Stop Date: 04/11/22 Status: Completed Lipitor 40 mg oral tablet 1 tablet [...] 0 Refills, Maintenance, 04/11/22 11:08:00 EDT, Tablet, [facility], Partial fill upon patient request if t... Start Date: 04/11/22 Status: Ordered oxyCODONE 5 mg oral tablet 2.5 mg, 0.5, tablet, By Mouth, Every 6 hours, PRN, for 5 days, # 10 tablet, Refills 0, Tot. Refills0, Acute 04/15/22 12:25:00 EDT, as needed for pain, 04/10/22 12:25:00 EDT, Route to Pharmacy Electronically, [facility], Partial fill upo... Start Date: 04/10/22 Stop Date: 04/15/22 Status: Ordered Toprol XL 100 mg oral tablet, extended release 100 mg, 1, tablet, By Mouth, Daily, # 30 tablet, Refills 0, Maintenance, 04/08/22 3:20:00 EDT, Partial fill upon patient request if the prescription is for a schedule II opioid drug. Start Date: 04/08/22 Status: Ordered Toprol XL 100 mg oral tablet, extended release 100 mg, XL Tablet, By Mouth, 04/11/22 9:00:00 EDT Start Date: 04/11/22 Stop Date: 04/11/22 Status: Completed traZODone 50 mg oral tablet 25 mg, 0.5, tablet, By Mouth, Daily at bedtime, # 15 tablet, Refills 0, Maintenance, 04/07/22 22:37:00 EDT, Partial fill upon patient request if the prescription is for a schedule II opioid drug. Start Date: 04/07/22 Status: Ordered Results Orders for Microbiology Reports Name Date Blood Culture 04/07/22 Blood Culture #2 04/07/22 Microbiology Reports TEST:Blood Culture, Second Order STATUS:Unauthenticated BODY SITE: SOURCE:Blood COLLECTED DATE/TIME:04/07/22 3:43 PM Blood Culture, Second Order SPECIMEN DESCRIPTION : BLOOD NO SITE SPECIAL REQUESTS : NONE CULTURE : NO GROWTH 4 DAYS REPORT STATUS : PRELIMINARY REPORT TEST:Blood Culture STATUS:Unauthenticated BODY SITE: SOURCE:Blood COLLECTED DATE/TIME:04/07/22 3:40 PM Blood Culture SPECIMEN DESCRIPTION : BLOOD NO SITE SPECIAL REQUESTS : NONE CULTURE : NO GROWTH 4 DAYS REPORT STATUS : PRELIMINARY REPORT Radiology Reports * Exam Date Time Procedure Performing Provider Status 04/07/22 2:26 PM Chest 2 Views Frontal and Lat Bein , Da na; Auth (Verified) Notes: (Chest 2 Views Frontal and Lat) Reason For Exam: Shortness of Breath RESULT: Chest 2 Views Frontal and Lat Chest 2 Views Frontal and Lat Hx of Present Illness: Pt began having chest pain yesterday, hx of anxiety. Pt recieved got 324 of aspirin and nitro from EMS. States that he is not having any relilef from it; Reason: Shortness of Breath; Clinical Question(s): CHF COMPARISON: None. FINDINGS: No acute cardiopulmonary process IMPRESSION: No acute abnormality. Normal exam WSN: [id number] Ordering Physician: Dieudonne Cloud Dictated By: Misha Bueno MD Dictated Date/Time: 04/07/22 2:28 pm Reviewed By: Misha Bueno MD Signed By: Misha Bueno MD Signed Date/Time: 04/07/22 2:28 pm Transcribed By: SARIKA Transcribed Date/Time: 04/07/22 2:27 pm Vital Signs Most recent to oldest [Reference Range]: 1 2 3 4 Height 165 cm (04/11/22 8:29 AM) 165 cm (04/10/22 3:29 PM) 165 cm (04/10/22 11:41 AM) Weight 59.0 kg (04/07/22 10:23 PM) Oxygen Saturation [94-100 %] 96 % (04/11/22 8:29 AM) 95 % (04/11/22 3:00 AM) 99 % (04/10/22 11:00 PM) Pulse Rate [55-90 bpm] 74 bpm (04/11/22 8:29 AM) 83 bpm (04/11/22 7:33 AM) 80 bpm (04/11/22 3:00 AM) Body Mass Index [18.5-24.99] 21.67 (04/07/22 10:23 PM) Blood Pressure [90-138/55-84 mm Hg] 164/78mm Hg *H* (04/11/22 8:29 AM) 169/76mm Hg *H* (04/11/22 7:33 AM) 169/76mm Hg *H* (04/11/22 7:33 AM) 169/76mm Hg *H* (04/11/22 7:33 AM) Respiratory Rate [16-30 br/min] 18 br/min (04/11/22 9:00 AM) 18 br/min (04/11/22 8:32 AM) 20 br/min (04/11/22 8:29 AM) Temperature [96.8-100.4 DegF] 98.4 DegF (04/11/22 8:29 AM) 98.1 DegF (04/11/22 3:00 AM) 97.8 DegF (04/10/22 11:00 PM) Mode of Delivery (Oxygen) Room air (04/11/22 8:29 AM) Room air (04/11/22 3:00 AM) Room air (04/10/22 11:00 PM) Blood pressure sites Arm, left (04/11/22 8:29 AM) Arm, left (04/11/22 3:00 AM) Arm, left (04/10/22 11:00 PM) Temperature Route Oral (04/11/22 8:29 AM) Oral (04/11/22 3:00 AM) Oral (04/10/22 11:00 PM) Dry Weight 59.0 kg (04/07/22 10:23 PM) Social History Social History Type Response Smoking Status 5-9 cigarettes (betw een 1/4 to 1/2 pack)/day in last 30 days; Interested in cessation: Yes entered on: 04/07/22 Sex
--- OUTSIDE RECORDS SUMMARY | 2023-10-05 00:44 | XMS_ITS | Continuity of Care Document ---
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 Name Role Phone Not on Staff, PCP Primary Care Physician Unavail able Encounter [facility] [place] Date(s): 02/14/22 - 02/15/[address] [address]- Encounter Diagnosis Abdominal pain of unknown cause(Final) - 02/15/22 Discharge Disposition: A-D/C Home Attending Physician: Nirja Dias MD Admitting Physician: Niraj Dias MD Referring Physician: Not on Staff, Referring MD Allergies, Adverse Reactions, Alerts Substance Reaction Severity Status metFORMIN Active Trulicity Active Medications MorPHINE Inj 4 mg, Injection, IV Push Slowly, Every 5 minutes for 3 doses/times, PRN for Pain , Moderate, and SBP greater than 100, Routine, 02/15/22 2:17:00 EDT, Stop date Limited # of times Start Date: 02/15/22 Stop Date: 02/15/22 Status: Discontinued Vital Signs Most recent to oldest [Reference Range]: 1 2 3 Oxygen Saturation [94-100 %] 97 % (02/15/22 8:35 AM) 98 % (02/15/22 7:49 AM) 97 % (02/14/22 10:18 PM) Pulse Rate [55-90 bpm] 70 bpm (02/15/22 8:35 AM) 69 bpm (02/15/22 7:49 AM) 65 bpm (02/14/22 10:18 PM) Blood Pressure [90-138/55-84 mm Hg] 144/74mm Hg *H* (02/15/22 8:35 AM) 149/78mm Hg *H* (02/15/22 7:49 AM) 161/82mm Hg *H* (02/14/22 10:18 PM) Respiratory Rate [16-30 br/min] 17 br/min (02/15/22 8:35 AM) 18 br/min (02/15/22 7:49 AM) 18 br/min (02/15/22 3:15 AM) Temperature [96.8-100.4 DegF] 97.9 DegF (02/15/22 8:35 AM) 97.9 DegF (02/15/22 7:49 AM) 97.9 DegF (02/14/22 10:18 PM) Mode of Delivery (Oxygen) Room air (02/15/22 8:35 AM) Room air (02/15/22 7:49 AM) Room air (02/14/22 10:18 PM) Blood pressure sites Arm, right (02/15/22 8:35 AM) Arm, right (02/15/22 7:49 AM) Arm, right (02/14/22 10:18 PM) Temperature Route Oral (02/15/22 8:35 AM) Oral (02/15/22 7:49 AM) Oral (02/14/22 10:18 PM)
[2023-10-05 01:03] LABS: B Type Natriuretic Peptide 144 pg/mL (<100)
[2023-10-05 02:52] LABS: Troponin-I High Sensitivity 3.4 ng/L (<3.5-35.0)
[2023-10-05 03:21] VITALS: BP 165/79; PULSE 67; RESP 12; TEMP 37.1; O2SAT 95
[2023-10-05] MEDS: Acetaminophen 325 MG TABLET 975 MG PO (04:29)
== END 2023-10-05 04:30 | disposition home or self-care (01) ==
PROVIDERS: Emergency Provider Emergency Medicine; PCP Internal Medicine
DX: R07.89 Other chest pain (principal); Z20.822 Contact with and (suspected) exposure to COVID-19; Z20.828 Contact with and (suspected) exposure to other viral communicable diseases; E11.22 Type 2 diabetes mellitus with diabetic chronic kidney disease; I13.0 Hypertensive heart and chronic kidney disease with heart failure and stage 1 through stage 4 chronic kidney disease, or unspecified chronic kidney disease; N18.1 Chronic kidney disease, stage 1; I50.32 Chronic diastolic (congestive) heart failure; E78.5 Hyperlipidemia, unspecified; J44.9 Chronic obstructive pulmonary disease, unspecified; Z87.891 Personal history of nicotine dependence; Z79.4 Long term (current) use of insulin; Z79.899 Other long term (current) drug therapy; Z79.02 Long term (current) use of antithrombotics/antiplatelets
CPT/HCPCS: 0241U; 36415; 71045; 80053; 83880; 84484; 85027; 93005; 99283; 99285

== ENCOUNTER → 2023-10-04 23:00 | Outpatient (BNV) | payer OTHER, SELFPAY | PROVIDERS: Emergency Provider Emergency Medicine; PCP Internal Medicine; Visit Provider Internal Medicine | DX: I47.10 Supraventricular tachycardia, unspecified (principal); R94.31 Abnormal electrocardiogram [ECG] [EKG] | CPT/HCPCS: 93010 ==

== ENCOUNTER 2023-10-30 16:14 | Emergency (ER) | payer OTHER, SELFPAY ==
[2023-10-30] VITALS (8 sets, daily range): BP systolic 159–184; BP diastolic 78–91; PULSE 60–66; RESP 13–22; TEMP 36.6–36.7; O2SAT 93–97; BMI 24.9
--- NOTE | ~2023-10-30 | CT_ITS ---
EXAMINATION: CT CHEST, ABDOMEN AND PELVIS WITHOUT CONTRAST. CLINICAL INFORMATION: Evaluate for pneumonia. Evaluate for small bowel obstruction. COMPARISON: CT chest, abdomen and pelvis 12/22/2022. TECHNIQUE: Multidetector volumetric imaging was performed from the thoracic inlet through the pubic symphysis without IV contrast. Sagittal and coronal reformatted images were obtained on the technologist's workstation. This CT examination was performed using dose optimization techniques as appropriate, variously including the following: *Automated exposure control *Adjustment of mA and/or kV according to patient size (this includes techniques or standardized protocols for targeted exams where dose is matched to indication/reason for exam; i.e. extremities or head) *Use of iterative reconstruction technique DLP: 219 and 400.4 mGy-cm FINDINGS: Limited noncontrast examination. CHEST: Lung: No focal consolidation or significant groundglass disease. Mild bronchial wall thickening. Central airways are patent. Streaky opacities in the lingula favored to represent subsegmental atelectasis and/or scarring. New 2 mm pulmonary nodule in the left upper lobe (7:125). New 3 mm pulmonary nodule in the right upper lobe (7:118). Mediastinum: Normal heart size. No pericardial effusion. Normal thyroid gland. Mild coronary artery calcifications. Stable prominent mediastinal lymph nodes, for instance a 9 mm short axis right paratracheal lymph node (5:22). Evaluation of the hilar structures, including lymph nodes is limited in the absence of IV contrast however accounting for this limitation no discrete bulky lymphadenopathy seen. Pericardium/Pleura: No pleural effusion or pneumothorax. Chest Wall/Axilla: Mild symmetric gynecomastia. Up to 3.6 cm skin base slightly hyperattenuating lesion in the right posterior lower chest (8:77) with 2 additional smaller skin base simple fluid density lesions slightly more superiorly in the right posterior chest measuring 1.4 and 1.6 cm (7:306 and 7:304), unchanged compared to 12/22/2022 favoring to represent sebaceous cysts. ABDOMEN/PELVIS: The lack of intravenous contrast limits evaluation of the solid visceral organs including the liver, spleen, pancreas, and kidneys. Peritoneal Space: No free air or free fluid. Liver, Gallbladder, Biliary Tree: The liver is normal in size, shape, and attenuation. No focal hepatic lesion or biliary ductal dilatation is present. The gallbladder is unremarkable with no evidence of radiopaque gallstones, gallbladder wall thickening, or obvious pericholecystic inflammatory changes. Pancreas: Unremarkable. Spleen: Unremarkable. Adrenal Glands: Stable bilateral adrenal hyperplasia. Kidneys and Ureters: No nephrolithiasis or hydronephrosis. Mild fairly symmetric perinephric free fluid extending into the retroperitoneal space up to the level of the pelvis as well as to the left upper quadrant posterior to the spleen. Bladder: Suspect mild diffuse urinary bladder wall thickening, although overall suboptimally assessed due to underdistention. No intraluminal calculi. No perivesical fat stranding or free fluid. Gastrointestinal Tract: The stomach and the small bowel are nondilated. Small hiatal hernia. Moderate degree of colonic stool burden with fecalization of the small bowel. No significant pericolonic fat stranding or free fluid. No evidence of bowel obstruction. The appendix is mildly dilated measuring up to 8 mm in diameter, however this is unchanged and there is no significant periappendiceal fat stranding or free fluid to suspected acute appendicitis. Abdominal Wall: No significant hernia is appreciated. Lymphovascular Structures: Severe atherosclerotic disease. Normal caliber abdominal aorta. No lymphadenopathy. Pelvic Viscera: Unremarkable. Osseous Structures: No acute or aggressive osseous findings. Degenerative changes of the spine. CT/CT abdomen pelvis wo IV con IMPRESSION: Chest: 1. Mild bronchial wall thickening which could be related with small airways disease. No focal consolidation. 2. New 2 mm pulmonary nodule in the left upper lobe and 3 mm pulmonary nodule in the right upper lobe. According to the UPDATED 2017 Fleischner Society recommendations, the advised follow-up imaging for nodules <6mm in the upper lobes is not necessarily required in low-risk patients. In high-risk patients with a nodule in the upper lobe and/or demonstrating suspicious morphology, an optional CT follow-up at 12 months may be obtained. If stable at 12 months, no further follow-up is recommended. 3. Skin-base nonaggressive appearing observations in the right posterior lower chest wall, not significantly changed possibly representing sebaceous cysts. Recommend correlation with physical examination. Abdomen: 1. Mild inflammatory changes surrounding the kidneys, extending to the left upper quadrant and to the retroperitoneum up to the level of the pelvis with equivocal mild urinary bladder wall thickening raising the possibility of an urinary tract infection, recommend clinical correlation. 2. Moderate colonic stool burden with fecalization of the small bowel suggesting slow transit that could be seen with poor digestion and bacterial overgrowth. No evidence of bowel obstruction. 3. Stable nonspecific dilatation of the appendix without significant periappendiceal inflammatory changes.
--- NOTE | ~2023-10-30 | XR_ITS ---
EXAMINATION: XR CHEST CLINICAL INFORMATION: Shortness of breath, history of CHF and COPD. COMPARISON: Chest radiograph 10/05/2023. TECHNIQUE: AP upright portable view of the chest was obtained. FINDINGS: Normal appearance of the cardiomediastinal silhouette. New platelike opacities projecting over the left mid lung. Otherwise, clear lungs. No pleural effusion or pneumothorax. No acute osseous findings. XR/XR chest 1V IMPRESSION: New platelike opacities in the left mid lung are indeterminate and could be related with subsegmental atelectasis or scarring, less likely an early infiltrate.
--- NOTE | 2023-10-30 16:34 | ECG_ITS ---
Test Reason : SOB Blood Pressure : / mmHG Vent. Rate : 063 BPM Atrial Rate : 063 BPM P-R Int : 130 ms QRS Dur : 080 ms QT Int : 406 ms P-R-T Axes : 035 029 030 degrees QTc Int : 415 ms Sinus rhythm with Premature atrial complexes Septal infarct , age undetermined Abnormal ECG When compared with ECG of 04-OCT-2023 23:00, T wave amplitude has decreased in Anterior leads Referred By: Theresa Emmanuel Electronically Signed By:Sadiq Rivera
--- NOTE | 2023-10-30 16:35 | ED.SOB ---
HPI - SOB/Dyspnea General Chief Complaint: Dyspnea Stated Complaint: SOB ON EXERTION AND LAYING DOWN Time Seen by Provider: 10/30/23 16:23 Source: patient Mode of arrival: EMS Limitations: no limitations History of Present Illness HPI Narrative: Patient comes to the emergency room complaining of shortness of breath since this morning. Patient states that the shortness of breath is worse with laying down flat and with exertion. Patient states he has history of COPD and CHF. Patient has been compliant with his medications. Patient states that he feels bloated, not feeling quite right. Patient denies any chest pain. Related Data Home Medications Medication Instructions Recorded Confirmed albuterol sulfate 90 mcg/actuation 2 puff inhalation Q6H PRN 08/01/22 08/15/23 aerosol inhaler Shortness Of Breath Or Wheezing escitalopram oxalate 10 mg tablet 10 mg PO DAILY 08/01/22 08/15/23 insulin lispro 100 unit/mL See Rx Instructions .Route .COMPLEX 08/01/22 08/15/23 subcutaneous solution trazodone 50 mg tablet 50 - 100 mg PO BEDTIME 08/01/22 08/15/23 aspirin 81 mg tablet,delayed 81 mg PO DAILY 10/06/22 08/15/23 release atorvastatin 40 mg tablet 40 mg PO DAILY 10/06/22 08/15/23 gabapentin 300 mg capsule 300 mg PO TID 10/06/22 08/15/23 metoprolol succinate 100 mg 100 mg PO DAILY 10/06/22 08/15/23 tablet,extended release 24 hr omeprazole 40 mg capsule,delayed 40 mg PO DAILY@0630 10/06/22 08/15/23 release ipratropium 0.5 mg-albuterol 3 mg 3 ml inhalation Q8H PRN Shortness 11/03/22 08/15/23 (2.5 mg base)/3 mL nebulization Of Breath Or Wheezing soln ferrous sulfate 324 mg (65 mg 1 tab PO DAILY 12/22/22 08/15/23 iron) tablet,delayed release insulin lispro 100 unit/mL See Rx Instructions .Route .COMPLEX 04/17/23 08/15/23 subcutaneous pen fluticasone propionate 110 2 puff inhalation BID 06/26/23 08/15/23 mcg/actuation HFA aerosol inhaler (Flovent HFA) furosemide 40 mg tablet 40 mg PO DAILY@0630 06/26/23 06/26/23 insulin glargine 100 unit/mL (3 27 unit subcut DAILY 06/26/23 08/15/23 mL) subcutaneous pen (Lantus Solostar U-100 Insulin) Previous Rx's Medication Instructions Recorded amlodipine 10 mg tablet 10 mg PO DAILY 30 days #30 tabs 08/07/22 magnesium oxide 400 mg (241.3 mg 400 mg PO BIDPC #60 tabs 08/20/22 magnesium) tablet sucralfate 1 gram tablet 1 g PO QIDACHS #120 tabs 09/10/22 lorazepam 1 mg tablet (Ativan) 1 mg PO BEDTIME PRN sleep #14 tabs 02/27/23 hydralazine 100 mg tablet 100 mg PO TID 30 days #90 tabs 05/09/23 albuterol sulfate 90 mcg/actuation 2 puff inhalation Q4-6H PRN 10/30/23 aerosol inhaler bronchospasm #8.5 grams prednisone 50 mg tablet 50 mg PO DAILY #4 tabs 10/30/23 Allergies Allergy/AdvReac Type Severity Reaction Status Date / Time dulaglutide [From [facility]] Allergy Unknown Verified 08/15/23 13:31 metformin [METFORMIN] AdvReac Mild DIARRHEA, Verified 08/15/23 13:31 nausea and vomiting Review of Systems Review of Systems: Constitutional : No Weight loss, No Fever, No Chills, No Night Sweats, No Fatigue, No Malaise ENT/Mouth : No Hearing loss, No Ear Pain, No Nasal Congestion, No Sinus Pain, No Hoarseness, No sore throat, No Rhinorrhea, No Swallowing Difficulty Eyes: No Eye Pain, No Swelling, No Redness, No Foreign Body, No Discharge, No Vision Changes Cardiovascular : No Chest Pain, complaining of dyspnea with exertion and complaining of orthopnea, no palpitations Respiratory : No Cough, No Sputum, No Wheezing, No Smoke Exposure, No Dyspnea Gastrointestinal : No Nausea, No Vomiting, No Diarrhea, No Constipation, No abdominal Pain, No Hematochezia, No Melena Genitourinary : no irregular bleeding, No Dysuria, No Urinary Frequency, No Hematuria, No Urinary Incontinence, No Urgency, No Flank Pain, No Urinary Flow Changes, No Hesitancy Musculoskeletal : No joint pain, No Myalgias, No Joint Swelling Skin : No Skin Lesions, No rash Neuro : No Weakness, No Numbness, No Paresthesias, No Loss of Consciousness, No Dizziness, No Headache Psych : No Anxiety/Panic, No Depression, No SI/HI/AH/VH, No Social Issues, Heme/Lymph: No Bruising, No Bleeding,No Lymphadenopathy Endocrine : No Polyuria, No Polydipsia, No Temperature Intolerance PMFSH Past Medical History Onset Date is defined in the Problem List Problems that require an onset date and time if occurred within 24 hrs of arrival to the ED Aortic Dissection and Rupture; Neurologic impairment; Cardiopulmonary Arrest; Endotracheal Intubation; Insertion or Replacement of Mechanical Circulatory Assist Device Medical History Congestive heart failure CKD (chronic kidney disease) stage 1, GFR 90 ml/min or greater Chronic heart failure with preserved ejection fraction (HFpEF) Depression COPD exacerbation YARELIS (obstructive sleep apnea) CHF exacerbation Hypoxia KELVIN (acute kidney injury) Acute respiratory failure Uncontrolled hypertension Acute on chronic diastolic (congestive) heart failure Acute on chronic anemia Hyperglycemia due to type 2 diabetes mellitus YARELIS (obstructive sleep apnea) Congestive heart failure Anxiety HLD (hyperlipidemia) Diabetes Hypercholesteremia HTN (hypertension) Asthma PAD (peripheral artery disease) Surgical History S/P angiogram of extremity Family History Family History Father Alzheimer disease CAD (coronary artery disease) Social History Social History Household Members: Significant Other Housing: Apartment Do you presently have visiting nurse or other home services: No (stopped VNA service aprox 2 weeks ago) Unable to assess alcohol history related to: Unknown Alcohol intake: never Comment: preop baseline abd discomfort Patient Tobacco Use Status: Never used Tobacco Tobacco use type: Cigarette Cigarettes Per Day: 10 Years Smoked: >30 Smoked in Last 30 Days: Yes e-Cigarette/Vaping Use: Never Used Second Hand Smoke Exposure: No Use of substances other than those prescribed or required for medical reasons: No Advance Directives: Yes Advance Directives on File: Yes Advance Directives Date on File: 06/21/21 service: No Current occupational status: disabled Physical Exam Vital Signs: Vital Signs: Last Vital Signs Temp 97.9 F 10/30/23 19:33 Pulse 66 10/30/23 21:35 Resp 13 10/30/23 19:33 BP 166/89 H 10/30/23 21:35 Pulse Ox 97 10/30/23 19:33 O2 Del Method Room Air 10/30/23 19:33 BMI result Body Mass Index 24.9 Const: Other: Appearance: Alert. Oriented X3. No acute distress. Eyes: Pupils equal, round and reactive to light. ENT: Pharynx normal. Neck: Normal inspection. Neck supple. No lymph nodes noted. No crepitus CVS: Normal heart rate and rhythm. Pulses normal. Normal S1 and S2 Respiratory: No respiratory distress. No wheezing, slight bilateral crackles Abdomen: Soft and nontender. No rigidity. No distention. Skin: Skin warm and dry. Normal skin color. Normal skin turgor. Extremities: No pitting edema bilaterally No Lacerations. No Rash Neuro: Oriented X 3. No motor deficit. No sensory deficit. Moving all extremities. No slurred speech. CN 2 through 12 grossly intact Psych: calm, cooperative, normal affect Course Course Course Narrative: -a patient's oxygen saturation 95% on room air. -all of patient's labs and imaging pending Medications Administered Discontinued Medications Generic Name Dose Route Start Last Admin Trade Name Favianq PRN Reason Stop Dose Admin Furosemide 40 mg 10/30/23 16:36 10/30/23 17:40 Furosemide 40 Mg/4 Ml Vial IVPUSH 10/30/23 16:37 40 mg STAT STA Administration Protocol Medical Decision Making Medical Decision Making [facility] Narrative: -my interpretation of labs: White blood cell count 13.4, patient has chronic leukocytosis. Hematology at baseline. Coagulation normal, normal venous blood gases, no chemistry, glucose slightly elevated, patient known to be diabetic, normal troponin, BNP at baseline, serology negative for COVID and influenza -chest x-ray shows new platelike opacity, likely atelectasis, less likely to be infiltrate -patient was ambulated around the emergency room, oxygen saturations states steady at 95% without oxygen -my interpretation of chest CT: No pneumonia, no edema, no ground-glass opacity -my interpretation of CT scan of the abdomen, no obvious abnormality -orthostatic vitals negative -ambulating, oxygen saturation 94-96%, steady unassisted gait with no dizziness -point of care to 226 Differential Diagnosis Differential Diagnoses: The differential diagnosis associated with the presentation includes (COVID, viral syndrome, pneumonia, CHF) Admission/Observation Consideration of admission/observation: Escalation of care including admission/observation considered (Given patient's complaints than presentation, admission was considered) Lab Data MDM Lab Attestation statement: I reviewed the patient's lab results. 10/30/23 16:50 10/30/23 16:50 Labs: Lab Results 10/30/23 10/30/23 10/30/23 Range/Units 16:50 16:56 20:29 WBC 13.4 H (4.8-10.8) X10*3/uL RBC 4.83 (4.60-5.80) X10*6/uL Hgb 13.3 L (14.0-18.0) g/dl Hct 39.9 L (42.0-52.0) % MCV 82.6 (80.0-98.0) fL MCH 27.5 (27.0-33.0) pg MCHC 33.3 (31.0-36.0) g/dl RDW 15.6 (11.0-16.0) % Plt Count 249 (160-400) X10*3/uL MPV 11.1 (9.4-12.4) fL Immature Gran % (Auto) 0.6 H (0.0-0.4) % Neut % (Auto) 76.8 H (45-73) % Lymph % (Auto) 13.0 L (20-40) % Tillman % (Auto) 7.4 (2-11) % Eos % (Auto) 1.9 (0-4) % Baso % (Auto) 0.3 (0-2) % Lymph # (Auto) 1.8 (1.2-4.9) X10*3/uL Tillman # (Auto) 1.0 (0.1-1.2) X10*3/uL Eos # (Auto) 0.3 (0.0-0.4) X10*3/uL Baso # (Auto) 0.0 (0.0-0.2) X10*3/uL Abs Immat Gran (auto) 0.08 H (0.00-0.03) X10*3/uL Absolute Neuts (auto) 10.3 H (2.0-8.3) x10*3/uL Absolute Nucleated RBC 0.000 (0.0-0.012) X10*3/uL Nucleated RBC % (auto) 0.0 (0.0-0.2) /100WBC PT 9.9 L (11.1-13.3) SEC INR 0.8 L (0.9-1.1) VBG pH 7.35 (7.32-7.43) VBG pCO2 46 mmHg VBG pO2 50 mmHg VBG HCO3 26 (22-26) mmol/L VBG O2 Saturation 78.0 % VBG Base Excess 0.0 mmol/L Sodium 140 (135-145) mmol/L Potassium 4.2 (3.3-5.1) mmol/L Chloride 107 (96-108) mmol/L Carbon Dioxide 24 (22-29) mmol/L Anion Gap 13 (12-20) BUN 31 H (9-16) mg/dL Creatinine 1.40 (0.5-1.4) mg/dL Estim Creat Clear Calc 55.5 Estimated GFR 54 Random Glucose 213 H (60-115) mg/dL Lactic Acid 1.2 (0.5-2.0) mmol/L Calcium 9.3 (8.4-10.2) mg/dL Total Bilirubin 0.3 (0.0-1.0) mg/dL Direct Bilirubin 0.1 (0.0-0.5) mg/dL AST 13 (5-37) U/L ALT 18 (0-40) U/L Alkaline Phosphatase 110 (39-117) U/L Troponin I High Sens 3.9 (<3.5-35.0) ng/L B-Natriuretic Peptide 216 H (<100) pg/mL Total Protein 7.2 (6.5-8.0) g/dL Albumin 3.9 (3.5-5.0) g/dL Urine Color Yellow Urine Appearance Clear Urine pH 6.0 (5.0-9.0) Ur Specific [place] <= 1.005 (1.005-1.025) Urine Protein 30 (1+) H (Neg-Trace) mg/dL Urine Glucose (UA) Negative (Negative) mg/dL Urine Ketones Negative (Negative) mg/dL Urine Blood Negative (Negative) Urine Nitrite Negative (Negative) Ur Leukocyte Esterase Negative (Negative) Urine RBC 0-2 (0-2) /HPF Urine WBC 0-5 (0-5) /HPF Ur Squamous Epith Cells 0-2 (0-2) /HPF Urine Bacteria None Seen (None Seen) Hyaline Casts 0-2 (0-2) /LPF COVID-19 (XANDER) Negative (Negative) COVID-19 Clin Com See Note Influenza Type A (MAYELIN) Negative (Negative) Influenza Type B (MAYELIN) Negative (Negative) Influenza A & B Note See Note Independent Interpretation I performed an independent interpretation of an: EKG (A physician EKG: Sinus rhythm, heart rate 63, no ST segment depression elevation, nonspecific T-wave inversion in lead 3, QTC 415) and CT Scan Radiology Impression Discussion of test interpretation with radiology: I have reviewed the radiologist's reading. Radiologist Impression: Abdomen: 1. Mild inflammatory changes surrounding the kidneys, extending to the left upper quadrant and to the retroperitoneum up to the level of the pelvis with equivocal mild urinary bladder wall thickening raising the possibility of an urinary tract infection, recommend clinical correlation. 2. Moderate colonic stool burden with fecalization of the small bowel suggesting slow transit that could be seen with poor digestion and bacterial overgrowth. No evidence of bowel obstruction. 3. Stable nonspecific dilatation of the appendix without significant periappendiceal inflammatory changes. Chest: 1. Mild bronchial wall thickening which could be related with small airways disease. No focal consolidation. 2. New 2 mm pulmonary nodule in the left upper lobe and 3 mm pulmonary nodule in the right upper lobe. According to the UPDATED 2017 Fleischner Society recommendations, the advised follow-up imaging for nodules <6mm in the upper lobes is not necessarily required in low-risk patients. In high-risk patients with a nodule in the upper lobe and/or demonstrating suspicious morphology, an optional CT follow-up at 12 months may be obtained. If stable at 12 months, no further follow-up is recommended. 3. Skin-base nonaggressive appearing observations in the right posterior lower chest wall, not significantly changed possibly representing sebaceous cysts. Recommend correlation with physical examination. Critical Care Time Critical Care Time Critical Care Time: Yes Total Critical Care Time: 60 Attestation: I have personally provided critical care time. Time includes review of lab data, radiology results, discussion with consultants, and monitoring for potential decompensation. Intervention performed as documented. Discharge Plan Discharge Clinical Impression: Abdominal distension, Bronchitis Patient Disposition: Home, Self-Care Instructions: Viral Syndrome (ED) Additional Instructions: Please follow-up with your primary care physician tomorrow. If you have any worsening or new symptoms, please return to the emergency room or call 911 Prescriptions: New prednisone 50 mg tablet 50 mg PO DAILY Qty: 4 0RF albuterol sulfate 90 mcg/actuation HFA aerosol inhaler 2 puff inhalation Q4-6H PRN (Reason: bronchospasm) Qty: 8.5 1RF No Action hydralazine 100 mg tablet 100 mg PO TID 30 Days Qty: 90 5RF sucralfate 1 gram Tablet 1 g PO QIDACHS Qty: 120 0RF ipratropium-albuterol 0.5 mg-3 mg(2.5 mg base)/3 mL solution for nebulization 3 ml inhalation Q8H PRN (Reason: Shortness Of Breath Or Wheezing) ferrous sulfate 324 mg (65 mg iron) tablet,delayed release (DR/EC) 1 tab PO DAILY trazodone 50 mg tablet 50 - 100 mg PO BEDTIME insulin lispro 100 unit/mL solution See Rx Instructions .ROUTE .COMPLEX Rx Instructions: insulin pump; use up to 100 units daily; OMNIPOD delivers 0.75 units per hour PATIENT HAS NOT BEEN ABLE TO REFILL RECENTLY. USING LANTUS AND LISPRO TO COVER albuterol sulfate 90 mcg/actuation HFA aerosol inhaler 2 puff INHALATION Q6H PRN (Reason: Shortness Of Breath Or Wheezing) escitalopram oxalate 10 mg tablet 10 mg PO DAILY amlodipine 10 mg Tablet 10 mg PO DAILY 30 Days Qty: 30 0RF Protocol: Hold for SBP< HOLD for SBP < : 90 atorvastatin 40 mg tablet 40 mg PO DAILY gabapentin 300 mg capsule 300 mg PO TID Hold Instructions: Resume on 11/07/22. metoprolol succinate 100 mg tablet extended release 24 hr 100 mg PO DAILY omeprazole 40 mg capsule,delayed release(DR/EC) 40 mg PO DAILY@0630 magnesium oxide 400 mg (241.3 mg magnesium) Tablet 400 mg PO BIDPC Qty: 60 0RF lorazepam [Ativan] 1 mg tablet 1 mg PO BEDTIME PRN (Reason: sleep) Qty: 14 0RF insulin lispro 100 unit/mL insulin pen See Rx Instructions .ROUTE .COMPLEX Rx Instructions: UNDER 100 = 0 UNITS 101-150 6 UNITS 151-200 8 UNITS 201-250 10 UNITS 251-300 12 UNITS 301 - 350 14 UNITS 351 - 400 16 UNITS OVER [address] fluticasone propionate [Flovent HFA] 110 mcg/actuation HFA aerosol inhaler 2 puff inhalation BID insulin glargine [Lantus Solostar U-100 Insulin] 100 unit/mL (3 mL) insulin pen 27 unit subcut DAILY furosemide 40 mg tablet 40 mg PO DAILY@0630 aspirin 81 mg tablet,delayed release (DR/EC) 81 mg PO DAILY
[2023-10-30 16:59] LABS: MANUAL DIFF FLAG NO
[2023-10-30 17:01] LABS: Basophils Percent Auto 0.3 % (0-2); Eosinophils Absolute Auto 0.3 X10*3/uL (0.0-0.4); Eosinophils Percent Auto 1.9 % (0-4); Hematocrit 39.9 % (42.0-52.0); Hemoglobin 13.3 g/dl (14.0-18.0); Imm Gran Abs Auto 0.08 X10*3/uL (0.00-0.03); Imm Gran Pct Auto 0.6 % (0.0-0.4); Lymphocytes Absolute Auto 1.8 X10*3/uL (1.2-4.9); Mean Corpuscular HGB Conc 33.3 g/dl (31.0-36.0); Mean Corpuscular Hemoglobin 27.5 pg (27.0-33.0); Mean Corpuscular Volume 82.6 fL (80.0-98.0); Mean Platelet Volume 11.1 fL (9.4-12.4); Monocytes Percent Auto 7.4 % (2-11); Neutrophils Absolute Auto 10.3 x10*3/uL (2.0-8.3); Neutrophils Percent Auto 76.8 % (45-73); Platelet Count 249 X10*3/uL (160-400); Red Blood Count 4.83 X10*6/uL (4.60-5.80); Red Cell Distribution Width 15.6 % (11.0-16.0); White Blood Count 13.4 X10*3/uL (4.8-10.8)
[2023-10-30 17:02] LABS: VBG HCO3 26 mmol/L (22-26); VBG pCO2 46 mmHg; VBG pH 7.35 (7.32-7.43); VBG pO2 50 mmHg
[2023-10-30 17:07] LABS: Venous Blood Gas Refer to POC result
[2023-10-30 17:09] LABS: INTERNATIONAL NORM RATIO 0.8 (0.9-1.1); Prothrombin Time 9.9 SEC (11.1-13.3)
[2023-10-30 17:11] LABS: Lactic Acid 1.2 mmol/L (0.5-2.0)
[2023-10-30 17:17] LABS: Alanine Aminotransferase 18 U/L (0-40); Albumin Level 3.9 g/dL (3.5-5.0); Alkaline Phosphatase 110 U/L (39-117); Anion Gap 13 (12-20); Aspartate Amino Transferase 13 U/L (5-37); Bilirubin Direct 0.1 mg/dL (0.0-0.5); Bilirubin Total 0.3 mg/dL (0.0-1.0); Blood Urea Nitrogen 31 mg/dL (9-16); COVID-19 Test Negative (Negative); Calcium 9.3 mg/dL (8.4-10.2); Carbon Dioxide 24 mmol/L (22-29); Chloride 107 mmol/L (96-108); Creatinine Clr Calc Pharmacy 55.5; Estimated Glomerular Filt Rate 54; Glucose Random 213 mg/dL (60-115); IDNOW Serial# 08D9AD1C; IDNOW Serial# BCCEAD1C; Influenza A Negative (Negative); Influenza B2 Negative (Negative); Potassium 4.2 mmol/L (3.3-5.1); Sodium 140 mmol/L (135-145); Total Protein 7.2 g/dL (6.5-8.0)
[2023-10-30 17:21] LABS: B Type Natriuretic Peptide 216 pg/mL (<100)
[2023-10-30 17:23] LABS: Troponin-I High Sensitivity 3.9 ng/L (<3.5-35.0)
[2023-10-30] MEDS: Furosemide 40 MG/4 ML VIAL IVPUSH (17:40)
--- NOTE | 2023-10-30 18:51 | MHC.EDTECH ---
this pct ambulated this pt. sitting O2 sat was 96% on room air. Walked Pt up and down the [place] and Pt O2 sat was 95% on Room air. Pt reports a little sob
[2023-10-30 20:41] LABS: Appearance Urine Clear; Color Urine Yellow; Glucose Urine UA Negative (Negative); Leukocyte Esterase Urine Negative (Negative); Nitrite Urine Negative (Negative); Specific Gravity - Urine <= 1.005 (1.005-1.025); UMIC TRIGGER UACC YES; Urine Blood Negative (Negative); Urine Ketones Negative (Negative); Urine Protein 30 (1+) mg/dL (Neg-Trace)
[2023-10-30 20:46] LABS: Bacteria Urine None Seen (None Seen); Hyaline Casts Urine 0-2 /LPF (0-2); RBC Urine 0-2 /HPF (0-2); Squamous Epithelial Cell Urine 0-2 /HPF (0-2); WBC Urine 0-5 /HPF (0-5)
[2023-10-30 21:43] LABS: Glucose, Whole Blood 224 mg/dL (60-115)
--- NOTE | 2023-10-30 21:46 | MHC.EDTECH ---
Walked with o2 and patient was 94% on RA and Dr. Emmanuel aware
[2023-10-30] MEDS: predniSONE 10 MG TABLET 50 MG PO (22:58)
== END 2023-10-30 22:59 | disposition home or self-care (01) ==
PROVIDERS: Emergency Provider Emergency Medicine
DX: R14.0 Abdominal distension (gaseous) (principal); J40 Bronchitis, not specified as acute or chronic; R06.02 Shortness of breath; Z11.52 Encounter for screening for COVID-19; E11.22 Type 2 diabetes mellitus with diabetic chronic kidney disease; I13.0 Hypertensive heart and chronic kidney disease with heart failure and stage 1 through stage 4 chronic kidney disease, or unspecified chronic kidney disease; N18.1 Chronic kidney disease, stage 1; I50.33 Acute on chronic diastolic (congestive) heart failure; E78.00 Pure hypercholesterolemia, unspecified; J44.9 Chronic obstructive pulmonary disease, unspecified; Z79.4 Long term (current) use of insulin; Z79.899 Other long term (current) drug therapy; Z79.02 Long term (current) use of antithrombotics/antiplatelets; F17.210 Nicotine dependence, cigarettes, uncomplicated
CPT/HCPCS: 71045; 71250; 74176; 80048; 80076; 81001; 82803; 82947; 83605; 83880; 84484; 85025; 85610; 87040; 87502; 87635; 93005; 96374; 99284; 99285; J1940

== ENCOUNTER → 2023-10-30 16:34 | Outpatient (BNV) | payer OTHER, SELFPAY | PROVIDERS: Emergency Provider Emergency Medicine; Visit Provider Internal Medicine Cardiovascular Disease | DX: I49.1 Atrial premature depolarization (principal) | CPT/HCPCS: 93010 ==

== ENCOUNTER 2023-11-23 23:28 | Inpatient (IN) | payer OTHER, SELFPAY ==
--- NOTE | 2023-11-23 | ECG_ITS ---
Test Reason : CHEST PAIN Blood Pressure : / mmHG Vent. Rate : 071 BPM Atrial Rate : 071 BPM P-R Int : 166 ms QRS Dur : 084 ms QT Int : 392 ms P-R-T Axes : 034 038 039 degrees QTc Int : 425 ms Normal sinus rhythm Normal ECG When compared with ECG of 30-OCT-2023 16:44, Premature atrial complexes are no longer Present Referred By: Generic ED Physician Electronically Signed By:Sadiq Rivera
--- NOTE | ~2023-11-23 | XR_ITS ---
EXAMINATION: XR CHEST CLINICAL INFORMATION: Dyspnea COMPARISON: CT chest 10/30/2023 TECHNIQUE: Frontal view of the chest was obtained. FINDINGS: Left middle lung zone platelike opacity corresponding to the previously seen scar in the lingula. No pneumothorax or pleural effusion. Cardiac silhouette within normal limits taking into consideration slight rotation. Soft tissue and osseous structures within normal limits. XR/XR chest 1V IMPRESSION: No acute cardiopulmonary process.
[2023-11-23 23:34] VITALS: BP 135/67; BP 146/77; PULSE 60; PULSE 85; RESP 20; TEMP 37.3; O2SAT 88; O2SAT 98; BMI 24.6
--- NOTE | 2023-11-23 23:48 | MHC.EDTECH ---
This Tech assumed care of this Pt upon arrival. Pt changed into a hospital gown and placed on a cardiac cath lab radiology technologist. EKG completed and handed to provider.
[2023-11-23 23:53] LABS: MANUAL DIFF FLAG NO
--- NOTE | 2023-11-23 23:57 | ED_ITS ---
HPI - General Adult General Chief complaint: Dyspnea Stated complaint: SOB Time Seen by Provider: 11/23/23 23:35 Source: patient, RN notes reviewed and old records reviewed Mode of arrival: EMS Limitations: no limitations History of Present Illness HPI narrative: 48-year-old male past medical history significant for COPD, hypertension, diabetes, chronic kidney disease presents for evaluation of shortness of breath Patient is on 2 L via nasal cannula p.r.n. at home for his COPD He feels though he has been using this more often than usual He reports he started to feel sick earlier this morning He reports chills but no fevers. He endorses cough, shortness of breath, chest pain He reports that his girlfriend has similar symptoms His current pain is a 7/10 No other complaints or concerns at this time Related Data Home Medications Medication Instructions Recorded Confirmed albuterol sulfate 90 mcg/actuation 2 puff inhalation Q6H PRN 08/01/22 08/15/23 aerosol inhaler Shortness Of Breath Or Wheezing escitalopram oxalate 10 mg tablet 10 mg PO DAILY 08/01/22 08/15/23 insulin lispro 100 unit/mL See Rx Instructions .Route .COMPLEX 08/01/22 08/15/23 subcutaneous solution trazodone 50 mg tablet 50 - 100 mg PO BEDTIME 08/01/22 08/15/23 aspirin 81 mg tablet,delayed 81 mg PO DAILY 10/06/22 08/15/23 release atorvastatin 40 mg tablet 40 mg PO DAILY 10/06/22 08/15/23 gabapentin 300 mg capsule 300 mg PO TID 10/06/22 08/15/23 metoprolol succinate 100 mg 100 mg PO DAILY 10/06/22 08/15/23 tablet,extended release 24 hr omeprazole 40 mg capsule,delayed 40 mg PO DAILY@0630 10/06/22 08/15/23 release ipratropium 0.5 mg-albuterol 3 mg 3 ml inhalation Q8H PRN Shortness 11/03/22 08/15/23 (2.5 mg base)/3 mL nebulization Of Breath Or Wheezing soln ferrous sulfate 324 mg (65 mg 1 tab PO DAILY 12/22/22 08/15/23 iron) tablet,delayed release insulin lispro 100 unit/mL See Rx Instructions .Route .COMPLEX 04/17/23 08/15/23 subcutaneous pen fluticasone propionate 110 2 puff inhalation BID 06/26/23 08/15/23 mcg/actuation HFA aerosol inhaler (Flovent HFA) furosemide 40 mg tablet 40 mg PO DAILY@0630 06/26/23 06/26/23 insulin glargine 100 unit/mL (3 27 unit subcut DAILY 06/26/23 08/15/23 mL) subcutaneous pen (Lantus Solostar U-100 Insulin) Previous Rx's Medication Instructions Recorded amlodipine 10 mg tablet 10 mg PO DAILY 30 days #30 tabs 08/07/22 magnesium oxide 400 mg (241.3 mg 400 mg PO BIDPC #60 tabs 08/20/22 magnesium) tablet sucralfate 1 gram tablet 1 g PO QIDACHS #120 tabs 09/10/22 lorazepam 1 mg tablet (Ativan) 1 mg PO BEDTIME PRN sleep #14 tabs 02/27/23 hydralazine 100 mg tablet 100 mg PO TID 30 days #90 tabs 05/09/23 albuterol sulfate 90 mcg/actuation 2 puff inhalation Q4-6H PRN 10/30/23 aerosol inhaler bronchospasm #8.5 grams prednisone 50 mg tablet 50 mg PO DAILY #4 tabs 10/30/23 Allergies Allergy/AdvReac Type Severity Reaction Status Date / Time dulaglutide [From [facility]] Allergy Unknown Verified 11/23/23 23:34 metformin [METFORMIN] AdvReac Mild DIARRHEA, Verified 11/23/23 23:34 nausea and vomiting Review of Systems 2 Constitutional: Constitutional: Reports body ache(s), Reports chills, Denies fever(s) and Reports headache(s) ENT: Reports headache(s) Cardiovascular: Cardiovascular: Reports chest pain and Reports dyspnea Respiratory: Respiratory: Reports cough and Reports dyspnea Gastrointestinal: Gastrointestinal: Denies abdominal pain, Denies nausea and Denies vomiting Musculoskeletal: Musculoskeletal: Reports back pain Integumentary/Breasts: Skin/Breast: Denies rash Neurologic: Reports headache(s) [facility] Past Medical History Medical History Congestive heart failure CKD (chronic kidney disease) stage 1, GFR 90 ml/min or greater Chronic heart failure with preserved ejection fraction (HFpEF) Depression COPD exacerbation YARELIS (obstructive sleep apnea) CHF exacerbation Hypoxia KELVIN (acute kidney injury) Acute respiratory failure Uncontrolled hypertension Acute on chronic diastolic (congestive) heart failure Acute on chronic anemia Hyperglycemia due to type 2 diabetes mellitus YARELIS (obstructive sleep apnea) Congestive heart failure Anxiety HLD (hyperlipidemia) Diabetes Hypercholesteremia HTN (hypertension) Asthma PAD (peripheral artery disease) Surgical History S/P angiogram of extremity Family History Family History Father Alzheimer disease CAD (coronary artery disease) Social History Social History Household Members: Significant Other Housing: Apartment Do you presently have visiting nurse or other home services: No (stopped VNA service aprox 2 weeks ago) Unable to assess alcohol history related to: Unknown Alcohol intake: never Comment: preop baseline abd discomfort Patient Tobacco Use Status: Never used Tobacco Tobacco use type: Cigarette Cigarettes Per Day: 10 Years Smoked: >30 Smoked in Last 30 Days: Yes e-Cigarette/Vaping Use: Never Used Second Hand Smoke Exposure: No Use of substances other than those prescribed or required for medical reasons: No Advance Directives: Yes Advance Directives on File: Yes Advance Directives Date on File: 06/21/21 service: No Current occupational status: disabled Physical Exam ED Vital Signs: Vital Signs - 24 hr 11/23/23 23:34 Temperature 99.1 F Pulse Rate 85 Respiratory Rate 20 Blood Pressure 135/67 Pulse Oximetry 88 L Oxygen Delivery Method Room Air BMI result Body Mass Index 24.6 Const General: healthy appearing, comfortable, no acute distress, alert and awake Nutritional Appearance: well nourished Orientation/consciousness: patient oriented x3 HENMT Head: Yes normocephalic and Yes atraumatic Eyes Eyelids: Yes eyelids normal Conjunctivae: conjunctivae normal Sclerae: sclerae normal Corneas: corneas normal Pupils: Equal, round and reactive pupils present EOM: EOMs intact bilaterally Neck Neck: Yes full ROM Resp Effort & Inspection: normal respiratory effort, able to speak in complete sentences, no audible wheezes and not labored Auscultation: clear to auscultation bilaterally Cardio Rate: regular rate Rhythm: regular rhythm GI Inspection: No distended Palpation (GI): Soft to palpation, not firm, nontender, no guarding and not rigid Skin General skin exam: elasticity normal Neuro General: patient oriented x3 Cranial nerves: Yes Equal, round and reactive pupils present and Yes Bilaterally intact EOM present Cognition (Neuro): normal cognition Extrem Other: Moving all extremities well without any obvious deformities Course Reevaluation(s) Reevaluation #1: Patient tested positive for influenza A. He has slightly increased oxygen demand with a very mild KELVIN compared to his baseline chronic kidney disease. Discussed the hospitalist will admit the patient. He was given Tamiflu and IV fluids Time: : Medications Administered Discontinued Medications Generic Name Dose Route Start Last Admin Trade Name Freq PRN Reason Stop Dose Admin Oseltamivir Phosphate 75 mg 11/24/23 00:32 11/24/23 00:50 Oseltamivir Phosphate 75 Mg Capsule PO 11/24/23 00:33 75 mg ONCE ONE Administration Medical Decision Making Medical Decision Making [facility] Narrative: 48-year-old male with multiple comorbidities as outlined above presents for evaluation of shortness of breath, body aches, cough. History and exam is most consistent with viral syndrome/influenza. Will get a workup that includes labs, viral swab, chest x-ray, EKG. He has no wheezing on exam to suggest a COPD exacerbation. His lungs are clear to auscultation, less likely be pneumonia. His EKG is normal sinus rhythm with a rate of 71 beats per minute. No ischemic changes to suggest ACS. Patient is satting 93% on his baseline 2 L nasal cannula. Differential Diagnosis Differential Diagnoses: The differential diagnosis associated with the presentation includes Influenza Viral syndrome Upper respiratory infection Pneumonia ACS COVID-19 Admission/Observation Consideration of admission/observation: Escalation of care including admission/observation considered Consult Healthcare Provider Management of the patient was discussed with: Hospitalist (Dr. Turpin) Lab Data [facility] Lab Attestation statement: I reviewed the patient's lab results. No leukocytosis. The patient has chronic anemia baseline which she has with a hemoglobin 11.5 and hematocrit 34.8. He has chronic kidney disease however his baseline creatinine around 1.5-1.6 with today's creatinine 1.85.. No significant electrolyte abnormalities 11/23/23 23:44 11/23/23 23:44 Labs: Lab Results 11/23/23 Range/Units 23:44 WBC 10.1 (4.8-10.8) X10*3/uL RBC 4.19 L (4.60-5.80) X10*6/uL Hgb 11.5 L (14.0-18.0) g/dl Hct 34.8 L (42.0-52.0) % MCV 83.1 (80.0-98.0) fL MCH 27.4 (27.0-33.0) pg MCHC 33.0 (31.0-36.0) g/dl RDW 14.9 (11.0-16.0) % Plt Count 208 (160-400) X10*3/uL MPV 11.4 (9.4-12.4) fL Immature Gran % (Auto) 0.3 (0.0-0.4) % Neut % (Auto) 79.5 H (45-73) % Lymph % (Auto) 8.5 L (20-40) % Mitchell % (Auto) 10.6 (2-11) % Eos % (Auto) 0.8 (0-4) % Baso % (Auto) 0.3 (0-2) % Lymph # (Auto) 0.9 L (1.2-4.9) X10*3/uL Mitchell # (Auto) 1.1 (0.1-1.2) X10*3/uL Eos # (Auto) 0.1 (0.0-0.4) X10*3/uL Baso # (Auto) 0.0 (0.0-0.2) X10*3/uL Abs Immat Gran (auto) 0.03 (0.00-0.03) X10*3/uL Absolute Neuts (auto) 8.0 (2.0-8.3) x10*3/uL Absolute Nucleated RBC 0.000 (0.0-0.012) X10*3/uL Nucleated RBC % (auto) 0.0 (0.0-0.2) /100WBC Sodium 138 (135-145) mmol/L Potassium 4.0 (3.3-5.1) mmol/L Chloride 105 (96-108) mmol/L Carbon Dioxide 22 (22-29) mmol/L Anion Gap 15 (12-20) BUN 44 H (9-16) mg/dL Creatinine 1.85 H (0.5-1.4) mg/dL Estim Creat Clear Calc 42.0 Estimated GFR 39 Random Glucose 273 H (60-115) mg/dL Calcium 9.1 (8.4-10.2) mg/dL Total Bilirubin 0.2 (0.0-1.0) mg/dL AST 23 (5-37) U/L ALT 29 (0-40) U/L Alkaline Phosphatase 121 H (39-117) U/L Troponin I High Sens 2.7 (<3.5-35.0) ng/L B-Natriuretic Peptide 93 (<100) pg/mL Total Protein 6.8 (6.5-8.0) g/dL Albumin 3.6 (3.5-5.0) g/dL Lipase 35 (8-78) U/L COVID-19 (XANDER) Negative (Negative) COVID-19 Clin Com See Note Influenza Type A (MAYELIN) Positive A (Negative) Influenza Type B (MAYELIN) Negative (Negative) Influenza A & B Note See Note Independent Interpretation I performed an independent interpretation of an: Plain X-Ray (Agree with Radiology interpretation) Radiology Impression Discussion of test interpretation with radiology: I have reviewed the radiologist's reading. (No acute cardiopulmonary disease) Discharge Plan Discharge Clinical Impression: Acute dyspnea, Influenza A Patient Disposition: Admitted As Inpatient Prescriptions: No Action hydralazine 100 mg tablet 100 mg PO TID 30 Days Qty: 90 5RF sucralfate 1 gram Tablet 1 g PO QIDACHS Qty: 120 0RF ipratropium-albuterol 0.5 mg-3 mg(2.5 mg base)/3 mL solution for nebulization 3 ml inhalation Q8H PRN (Reason: Shortness Of Breath Or Wheezing) ferrous sulfate 324 mg (65 mg iron) tablet,delayed release (DR/EC) 1 tab PO DAILY trazodone 50 mg tablet 50 - 100 mg PO BEDTIME insulin lispro 100 unit/mL solution See Rx Instructions .ROUTE .COMPLEX Rx Instructions: insulin pump; use up to 100 units daily; OMNIPOD delivers 0.75 units per hour PATIENT HAS NOT BEEN ABLE TO REFILL RECENTLY. USING LANTUS AND LISPRO TO COVER albuterol sulfate 90 mcg/actuation HFA aerosol inhaler 2 puff INHALATION Q6H PRN (Reason: Shortness Of Breath Or Wheezing) escitalopram oxalate 10 mg tablet 10 mg PO DAILY amlodipine 10 mg Tablet 10 mg PO DAILY 30 Days Qty: 30 0RF Protocol: Hold for SBP< HOLD for SBP < : 90 atorvastatin 40 mg tablet 40 mg PO DAILY gabapentin 300 mg capsule 300 mg PO TID Hold Instructions: Resume on 11/07/22. metoprolol succinate 100 mg tablet extended release 24 hr 100 mg PO DAILY omeprazole 40 mg capsule,delayed release(DR/EC) 40 mg PO DAILY@0630 magnesium oxide 400 mg (241.3 mg magnesium) Tablet 400 mg PO BIDPC Qty: 60 0RF lorazepam [Ativan] 1 mg tablet 1 mg PO BEDTIME PRN (Reason: sleep) Qty: 14 0RF insulin lispro 100 unit/mL insulin pen See Rx Instructions .ROUTE .COMPLEX Rx Instructions: UNDER 100 = 0 UNITS 101-150 6 UNITS 151-200 8 UNITS 201-250 10 UNITS 251-300 12 UNITS 301 - 350 14 UNITS 351 - 400 16 UNITS OVER [address] fluticasone propionate [Flovent HFA] 110 mcg/actuation HFA aerosol inhaler 2 puff inhalation BID insulin glargine [Lantus Solostar U-100 Insulin] 100 unit/mL (3 mL) insulin pen 27 unit subcut DAILY furosemide 40 mg tablet 40 mg PO DAILY@0630 prednisone 50 mg tablet 50 mg PO DAILY Qty: 4 0RF albuterol sulfate 90 mcg/actuation HFA aerosol inhaler 2 puff inhalation Q4-6H PRN (Reason: bronchospasm) Qty: 8.5 1RF aspirin 81 mg tablet,delayed release (DR/EC) 81 mg PO DAILY
[2023-11-23 23:58] LABS: Basophils Percent Auto 0.3 % (0-2); Eosinophils Absolute Auto 0.1 X10*3/uL (0.0-0.4); Eosinophils Percent Auto 0.8 % (0-4); Hematocrit 34.8 % (42.0-52.0); Hemoglobin 11.5 g/dl (14.0-18.0); Imm Gran Abs Auto 0.03 X10*3/uL (0.00-0.03); Imm Gran Pct Auto 0.3 % (0.0-0.4); Lymphocytes Absolute Auto 0.9 X10*3/uL (1.2-4.9); Lymphocytes Percent Auto 8.5 % (20-40); Mean Corpuscular Hemoglobin 27.4 pg (27.0-33.0); Mean Corpuscular Volume 83.1 fL (80.0-98.0); Mean Platelet Volume 11.4 fL (9.4-12.4); Monocytes Absolute Auto 1.1 X10*3/uL (0.1-1.2); Monocytes Percent Auto 10.6 % (2-11); Neutrophils Percent Auto 79.5 % (45-73); Platelet Count 208 X10*3/uL (160-400); Red Blood Count 4.19 X10*6/uL (4.60-5.80); Red Cell Distribution Width 14.9 % (11.0-16.0); White Blood Count 10.1 X10*3/uL (4.8-10.8)
[2023-11-24] VITALS (17 sets, daily range): BP systolic 106–154; BP diastolic 49–75; PULSE 62–97; RESP 13–27; TEMP 36.2–37.4; O2SAT 89–98
[2023-11-24 00:09] LABS: COVID-19 Test Negative (Negative); IDNOW Serial# 08D9AD1C; IDNOW Serial# 152EDE1D; Influenza A Positive (Negative)
[2023-11-24 00:12] LABS: Alanine Aminotransferase 29 U/L (0-40); Albumin Level 3.6 g/dL (3.5-5.0); Alkaline Phosphatase 121 U/L (39-117); Anion Gap 15 (12-20); Aspartate Amino Transferase 23 U/L (5-37); Bilirubin Total 0.2 mg/dL (0.0-1.0); Blood Urea Nitrogen 44 mg/dL (9-16); Calcium 9.1 mg/dL (8.4-10.2); Carbon Dioxide 22 mmol/L (22-29); Chloride 105 mmol/L (96-108); Estimated Glomerular Filt Rate 39; Glucose Random 273 mg/dL (60-115); Lipase 35 U/L (8-78); Sodium 138 mmol/L (135-145); Total Protein 6.8 g/dL (6.5-8.0)
[2023-11-24 00:15] LABS: Influenza B2 Negative (Negative)
[2023-11-24 00:16] LABS: B Type Natriuretic Peptide 93 pg/mL (<100)
[2023-11-24 00:20] LABS: Troponin-I High Sensitivity 2.7 ng/L (<3.5-35.0)
[2023-11-24] MEDS: Oseltamivir Phosphate 75 MG CAPSULE PO (00:50)
--- NOTE | 2023-11-24 00:54 | PC.NURSE ---
late entry- pt biba from home reporting waking up with shortness of breath in the AM, pt reports the shortness of breath increased throughout the day. pt reports his girlfriend at home is sick but unsure with what. pt on 2L nasal cannula PRN baseline, pt requiring nasal cannula. 20G access in the left hand.
[2023-11-24] MEDS: 0.9 % Sodium Chloride 1,000 ML 999 ML IV (01:53)
[2023-11-24] MEDS: 0.9 % Sodium Chloride 1,000 ML 100 ML IVCONT ×2 (03:11→13:19)
[2023-11-24] MEDS: Albuterol/Iprat 2.5/0.5MG 3 ML AMPUL.NEB INHALE ×5 (03:21→20:56)
--- NOTE | 2023-11-24 03:26 | PC.NURSE ---
respiratory at bedside doing breathing treatment for pt.
--- NOTE | 2023-11-24 05:01 | P.HPHOSP_ITS ---
History of Present Illness Date of Service: 11/24/23 Attending physician on admission: Samantha Chowdhury Chief Complaint: Shortness of breath. Ciara Quiroga is a 48 years old man with past medical history significant for COPD -supplemental oxygen at home as needed, essential hypertension and type 2 diabetes mellitus presents to the emergency department complaining of worsening shortness of breath is associated with productive cough and generalized weakness. He reported subjective fever and headache. He denied chest pain, abdominal pain, nausea, vomiting or diarrhea. He denies tobacco smoking, alcohol abuse or illicit drug use. He did not get the vaccination for influenza this year. In the ED, he was found to have an oxygen saturation 88% on room air. There is no tachycardia or hypotension. Blood workup is remarkable for elevated creatinine, 1.85 however around baseline. There is hyperglycemia. There are no significant electrolyte imbalances. Bicarb is normal. Viral testing is positive for influenza type A. CXR showed no acute cardiopulmonary process. ED tx: Tamiflu 75 mg p.o., NS 1 L bolus. Review of Systems 2 Review of Systems: All 12 systems were reviewed and normal except as noted in HPI. [facility] Medical History (Updated 11/24/23 @ 05:21 by Samantha Chowdhury MD) Acute respiratory failure with hypoxia Congestive heart failure CKD (chronic kidney disease) stage 1, GFR 90 ml/min or greater Chronic heart failure with preserved ejection fraction (HFpEF) Depression COPD exacerbation YARELIS (obstructive sleep apnea) CHF exacerbation Hypoxia KELVIN (acute kidney injury) Acute respiratory failure Uncontrolled hypertension Acute on chronic diastolic (congestive) heart failure Acute on chronic anemia Hyperglycemia due to type 2 diabetes mellitus YARELIS (obstructive sleep apnea) Congestive heart failure Anxiety HLD (hyperlipidemia) Diabetes Hypercholesteremia HTN (hypertension) Asthma PAD (peripheral artery disease) Family History Father Alzheimer disease CAD (coronary artery disease) Surgical History S/P angiogram of extremity Social History Household Members: Significant Other Housing: Apartment Do you presently have visiting nurse or other home services: No (stopped VNA service aprox 2 weeks ago) Unable to assess alcohol history related to: Unknown Alcohol intake: never Comment: preop baseline abd discomfort Patient Tobacco Use Status: Never used Tobacco Tobacco use type: Cigarette Cigarettes Per Day: 10 Years Smoked: >30 Smoked in Last 30 Days: Yes e-Cigarette/Vaping Use: Never Used Second Hand Smoke Exposure: No Use of substances other than those prescribed or required for medical reasons: No Advance Directives: Yes Advance Directives on File: Yes Advance Directives Date on File: 06/21/21 Nutrition Risks: No Nutritional Risk service: No Current occupational status: disabled Meds Allergies Allergy/AdvReac Type Severity Reaction Status Date / Time dulaglutide [[facility] Allergy Unknown Verified 11/23/23 23:34 metformin [METFORMIN] AdvReac Mild DIARRHEA, Verified 11/23/23 23:34 nausea and vomiting Active Medications: Current Medications Acetaminophen (Acetaminophen 325 Mg Tablet) 950 mg PO Q6H PRN PRN Reason: Fever Albuterol/Ipratropium (Albuterol/Iprat 2.5/0.5mg 3 Ml Ampul.Neb) 3 ml INHALE Q4H [facility] Last Admin: 11/24/23 03:21 Dose: 3 ml Aspirin (Aspirin 81 Mg Tab.Chew) 81 mg PO DAILY [facility] Atorvastatin Calcium (Atorvastatin Calcium 40 Mg Tablet) 40 mg PO DAILY [facility] Dextrose (Dextrose 50 % 25 Gm/50 Ml Syringe) 25 gm IVPUSH Q15M PRN; Protocol PRN Reason: per Hypoglycemia Standing Ord. Escitalopram Oxalate (Escitalopram Oxalate 10 Mg Tablet) 10 mg PO DAILY [facility] Glucose (Glucose Gel 15 Gm Gel..Gram.) 15 gm PO Q15M PRN; Protocol PRN Reason: per Hypoglycemia Standing Ord. Guaifenesin/Dextromethorphan (Guaifenesin Dm 200/20/10 Ml 10 Ml Syrup) 10 ml PO Q6H PRN PRN Reason: cough Heparin Sodium (Porcine) (Heparin Sodium,Porcine 5,000 Unit/Ml Vial) 5,000 unit SUBCUT Q12H [facility] Sodium Chloride (Ns) 1,000 mls @ 100 mls/hr IVCONT .Q10H [facility] Last Admin: 11/24/23 03:11 Dose: 100 mls/hr Insulin Human Lispro (Insulin Lispro 100 Unit/Ml 3 Ml Vial) 0 unit SUBCUT QIDACHS [facility]; Protocol Oseltamivir Phosphate (Oseltamivir Phosphate 30 Mg Capsule) 30 mg PO BID [facility] Stop: 11/28/23 09:01 Sodium Chloride (0.9 % Sodium Chloride Flush 3 Ml Syringe) 3 ml IVFLUSH QSHIFT [facility] Home Medications Medication Instructions Recorded Confirmed Last Taken Type albuterol sulfate 90 mcg/actuation 2 puff inhalation Q6H PRN 08/01/22 08/15/23 06/24/23 History aerosol inhaler Shortness Of Breath Or Wheezing escitalopram oxalate 10 mg tablet 10 mg PO DAILY 08/01/22 08/15/23 06/24/23 History insulin lispro 100 unit/mL See Rx Instructions .Route .COMPLEX 08/01/22 08/15/23 06/24/23 History subcutaneous solution trazodone 50 mg tablet 50 - 100 mg PO BEDTIME 08/01/22 08/15/23 06/24/23 History aspirin 81 mg tablet,delayed 81 mg PO DAILY 10/06/22 08/15/23 06/24/23 History release atorvastatin 40 mg tablet 40 mg PO DAILY 10/06/22 08/15/23 06/24/23 History gabapentin 300 mg capsule 300 mg PO TID 10/06/22 08/15/23 12/21/22 History metoprolol succinate 100 mg 100 mg PO DAILY 10/06/22 08/15/23 06/24/23 History tablet,extended release 24 hr omeprazole 40 mg capsule,delayed 40 mg PO DAILY@0630 10/06/22 08/15/23 06/24/23 History release ipratropium 0.5 mg-albuterol 3 mg 3 ml inhalation Q8H PRN Shortness 11/03/22 08/15/23 06/24/23 History (2.5 mg base)/3 mL nebulization Of Breath Or Wheezing soln ferrous sulfate 324 mg (65 mg 1 tab PO DAILY 12/22/22 08/15/23 06/24/23 History iron) tablet,delayed release insulin lispro 100 unit/mL See Rx Instructions .Route .COMPLEX 04/17/23 08/15/23 06/24/23 History subcutaneous pen fluticasone propionate 110 2 puff inhalation BID 06/26/23 08/15/23 06/24/23 History mcg/actuation HFA aerosol inhaler (Flovent HFA) furosemide 40 mg tablet 40 mg PO DAILY@0630 06/26/23 06/26/23 06/24/23 History insulin glargine 100 unit/mL (3 27 unit subcut DAILY 06/26/23 08/15/23 06/24/23 History mL) subcutaneous pen (Lantus Solostar U-100 Insulin) fluticasone furoate 100 inhalation 11/24/23 Unknown History mcg/actuation blister powder for inhalation (Arnuity Ellipta) Physical Exam 2 Vital Signs and Narrative: Vital Signs: Last Vital Signs Temp 98.2 F 11/24/23 01:57 Pulse 70 11/24/23 03:23 Resp 14 11/24/23 03:23 BP 120/59 L 11/24/23 01:57 Pulse Ox 92 11/24/23 01:57 O2 Del Method Nasal Cannula 11/24/23 01:57 O2 Flow Rate 4 11/24/23 01:57 BMI result Body Mass Index 24.6 Results Labs 11/23/23 23:44 11/23/23 23:44 Labs: Laboratory Results - last 24 hr 11/23/23 23:44 MCV 83.1 MCH 27.4 MCHC 33.0 RDW 14.9 Plt Count 208 MPV 11.4 Immature Gran % (Auto) 0.3 Neut % (Auto) 79.5 H Lymph % (Auto) 8.5 L Crisp % (Auto) 10.6 Eos % (Auto) 0.8 Baso % (Auto) 0.3 Lymph # (Auto) 0.9 L Crisp # (Auto) 1.1 Eos # (Auto) 0.1 Baso # (Auto) 0.0 Abs Immat Gran (auto) 0.03 Absolute Neuts (auto) 8.0 Absolute Nucleated RBC 0.000 Nucleated RBC % (auto) 0.0 Anion Gap 15 Estim Creat Clear Calc 42.0 Estimated GFR 39 Random Glucose 273 H Calcium 9.1 Total Bilirubin 0.2 AST 23 ALT 29 Alkaline Phosphatase 121 H B-Natriuretic Peptide 93 Total Protein 6.8 Albumin 3.6 Lipase 35 COVID-19 (XANDER) Negative COVID-19 Clin Com See Note Influenza Type A (MAYELIN) Positive A Influenza Type B (MAYELIN) Negative Influenza A & B Note See Note Imaging Radiologist's Impressions: Impressions Chest X-Ray 11/23/23 23:57 IMPRESSION: No acute cardiopulmonary process. Assessment and Plan (1) Acute respiratory failure with hypoxia: Status: Acute (2) Influenza A: Status: Acute Plan Ciara Middleton is a 48 years old man admitted with: * Acute hypoxic respiratory failure secondary acute exacerbation of chronic obstructive pulmonary disease due to influenza type a infection. Admit to hospitalist service. Telemetry. Pulse oximetry. Continue supplemental oxygen to keep oxygen saturation above 90%. Bronchodilator therapy. IV steroids. Complete a course of Tamiflu for 5 days. * Hyperlipidemia. Continue statin. * Chronic diastolic congestive heart failure. Currently compensated. BNP is normal. * Type 2 diabetes mellitus. Blood glucose monitoring before meals at bedtime. Diabetic diet. Insulin sliding scale. * Depression adn anxiety. Continue escitalopram. * Essential hypertension. Hold antihypertensive medications as BP is currently soft. * Chronic kidney disease. Continue to monitor renal function. DVT prophylaxis: Heparin subcut. Code status: Full. Patient will need hospitalization for acute hypoxic respiratory failure treatment secondary to COPD exacerbation due to influenza type a. Patient will need treatment with supplemental oxygen, bronchodilator therapy, IV steroids and a course of Tamiflu. Quality Stroke Does the patient have a stroke diagnosis?: No VTE Prior VTE?: No VTE Risk Level:: Medical - moderate - high VTE Device Contraindication: Treatment Not Indicated VTE Drug Contraindication: N/A - Med Ordered
--- NOTE | 2023-11-24 05:48 | PC.NURSE ---
provider aware of pt o2 sat, orders follow as documented.
[2023-11-24] MEDS: guaiFENesin DM 200/20/10 ML 10 ML SYRUP PO (05:55)
[2023-11-24] MEDS: methylPREDNISolone Sod Succ 125 MG/2 ML VIAL IVPUSH (05:55)
[2023-11-24 06:41] LABS: MANUAL DIFF FLAG NO
[2023-11-24 06:47] LABS: Basophils Percent Auto 0.3 % (0-2); Eosinophils Absolute Auto 0.1 X10*3/uL (0.0-0.4); Eosinophils Percent Auto 0.6 % (0-4); Hematocrit 38.7 % (42.0-52.0); Hemoglobin 12.5 g/dl (14.0-18.0); Imm Gran Abs Auto 0.04 X10*3/uL (0.00-0.03); Imm Gran Pct Auto 0.4 % (0.0-0.4); Lymphocytes Absolute Auto 1.7 X10*3/uL (1.2-4.9); Lymphocytes Percent Auto 17.3 % (20-40); Mean Corpuscular HGB Conc 32.3 g/dl (31.0-36.0); Mean Corpuscular Hemoglobin 27.3 pg (27.0-33.0); Mean Corpuscular Volume 84.5 fL (80.0-98.0); Mean Platelet Volume 11.3 fL (9.4-12.4); Monocytes Percent Auto 10.3 % (2-11); Neutrophils Absolute Auto 7.1 x10*3/uL (2.0-8.3); Neutrophils Percent Auto 71.1 % (45-73); Platelet Count 211 X10*3/uL (160-400); Red Blood Count 4.58 X10*6/uL (4.60-5.80); Red Cell Distribution Width 15.2 % (11.0-16.0); White Blood Count 9.9 X10*3/uL (4.8-10.8)
[2023-11-24 07:02] LABS: Alanine Aminotransferase 30 U/L (0-40); Albumin Level 3.7 g/dL (3.5-5.0); Alkaline Phosphatase 124 U/L (39-117); Anion Gap 14 (12-20); Aspartate Amino Transferase 24 U/L (5-37); Bilirubin Total 0.2 mg/dL (0.0-1.0); Blood Urea Nitrogen 36 mg/dL (9-16); Calcium 8.7 mg/dL (8.4-10.2); Carbon Dioxide 20 mmol/L (22-29); Chloride 110 mmol/L (96-108); Creatinine Clr Calc Pharmacy 42.9; Estimated Glomerular Filt Rate 40; Glucose Random 206 mg/dL (60-115); Magnesium 2.2 mg/dL (1.6-2.6); Potassium 4.3 mmol/L (3.3-5.1); Sodium 140 mmol/L (135-145); Total Protein 6.9 g/dL (6.5-8.0)
[2023-11-24 07:13] LABS: Glucose, Whole Blood 241 mg/dL (60-115)
[2023-11-24] MEDS: Insulin Lispro 100 UNIT/ML 3 ML VIAL SUBCUT ×4 (07:49→17:56)
--- NOTE | 2023-11-24 08:30 | PHA.MEDREC ---
Pharmacy Consult ? Medication Reconciliation Pharmacy has completed the medication reconciliation. Patient has a list with him. OF NOTE: patient is on arunity and flovent together. And patient has an omnipod which uses insulin lispro
--- NOTE | 2023-11-24 08:52 | PC.NURSE ---
pt desatting to 85% on 4L. Respiratory called, neb given and pt O2 increased to 5L at this time
[2023-11-24] MEDS: Aspirin 81 MG TAB.CHEW PO (08:54)
[2023-11-24] MEDS: Atorvastatin Calcium 40 MG TABLET PO (08:54)
[2023-11-24] MEDS: Heparin Sodium,Porcine 5,000 UNIT/ML VIAL 5000 UNIT SUBCUT ×2 (08:54→21:34)
[2023-11-24] MEDS: Escitalopram Oxalate 10 MG TABLET PO (08:54)
[2023-11-24] MEDS: hydrALAZINE HCl 50 MG TABLET 100 MG PO ×3 (09:44→21:32)
[2023-11-24] MEDS: Furosemide 40 MG TABLET 80 MG PO (09:44)
[2023-11-24] MEDS: amLODIPine Besylate 10 MG TABLET PO (09:44)
[2023-11-24] MEDS: Ferrous Sulfate 324 MG TABLET.DR PO (09:45)
--- NOTE | 2023-11-24 09:48 | PC.NURSE ---
while medicating pt he began complaining of chest pressure, intermittent and short lasting - reports it was gone by the time med pass was complete. MD Stephen made aware
--- NOTE | 2023-11-24 09:49 | PC.NURSE ---
pt reports his glucose monitor is reading high - POC checked, reading 425. MD koroma made aware.
[2023-11-24 09:50] LABS: Glucose, Whole Blood 425 mg/dL (60-115)
[2023-11-24] MEDS: Oseltamivir Phosphate 30 MG CAPSULE PO ×2 (10:15→21:32)
[2023-11-24] MEDS: Insulin Glargine,Hum.rec.anlog 100 UNIT/ML 10 ML VIAL 20 UNIT SUBCUT (10:19)
[2023-11-24] MEDS: Insulin Regular, Human 100 UNIT/ML 3 ML VIAL IVPUSH (10:21)
[2023-11-24 11:25] LABS: Glucose, Whole Blood 370 mg/dL (60-115)
--- NOTE | 2023-11-24 11:58 | MHC.CM.PN ---
CM MET WITH PT AT BEDSIDE. INDEPENDENT WITH MOBILITY. PT GETS DIABETIC SUPPLIES THROUGH [facility]/HAS HOME 02 PRN/CPAP VIA [facility] BUT EQUIPMENT NOT FUNCTIONING PRPOERLY. PT STATES HE LET RESPIRATORY KNOW. +HCP ON FILE PCP DR. AMOS. DP: HOME, NO SERVICES ANTICIPATED. PT WILL NEED SHUTTLE OR LYFT RIDE HOME. CM WILL CONTINUE TO FOLLOW FOR ANY CHANGE IN DC PLAN/NEEDS.
--- NOTE | 2023-11-24 12:46 | HO.PM.IMPN ---
Subjective Subjective Date of Service: 11/24/23 Interval History: feels better, but still hypoxic and requiring oxygen Physical Exam Vital Signs: Vital Signs: Last Vital Signs Temp 99.3 F 11/24/23 11:35 Pulse 89 11/24/23 11:35 Resp 16 11/24/23 11:35 BP 130/65 11/24/23 11:35 Pulse Ox 92 11/24/23 11:35 O2 Del Method Nasal Cannula 11/24/23 11:35 O2 Flow Rate 5 11/24/23 11:35 BMI result Body Mass Index 24.6 Const: Other: General: AO X 3, no acute distress Resp: sukh rhonchi, faint wheezel CVS: S1,S2,RRR GI: +BS, NT, no distention Skin: No rash Neuro: motor grossly intact Psych: appropriate affect Objective Data Active Medications Acetaminophen (Acetaminophen 325 Mg Tablet) 950 mg PO Q6H PRN PRN Reason: Fever Albuterol/Ipratropium (Albuterol/Iprat 2.5/0.5mg 3 Ml Ampul.Neb) 3 ml INHALE Q4H [facility] Last Admin: 11/24/23 08:26 Dose: 3 ml Documented By: AMADO Amlodipine Besylate (Amlodipine Besylate 10 Mg Tablet) 10 mg PO DAILY [facility]; Protocol Last Admin: 11/24/23 09:44 Dose: 10 mg Documented By: CLAY Aspirin (Aspirin 81 Mg Tab.Chew) 81 mg PO DAILY [facility] Last Admin: 11/24/23 08:54 Dose: 81 mg Documented By: CLAY Atorvastatin Calcium (Atorvastatin Calcium 40 Mg Tablet) 40 mg PO DAILY [facility] Last Admin: 11/24/23 08:54 Dose: 40 mg Documented By: CLAY Dextrose (Dextrose 50 % 25 Gm/50 Ml Syringe) 25 gm IVPUSH Q15M PRN; Protocol PRN Reason: per Hypoglycemia Standing Ord. Escitalopram Oxalate (Escitalopram Oxalate 10 Mg Tablet) 10 mg PO DAILY [facility] Last Admin: 11/24/23 08:54 Dose: 10 mg Documented By: CLAY Ferrous Sulfate (Ferrous Sulfate 324 Mg Tablet.) 324 mg PO DAILY [facility] Last Admin: 11/24/23 09:45 Dose: 324 mg Documented By: CLAY Fluticasone Propionate (Fluticasone Propionate 250 Mcg Blst.W.Dev) 1 puff INHALE RBID [facility] Furosemide (Furosemide 40 Mg Tablet) 40 mg PO BEDTIME DIONIS[facility]; Protocol Furosemide (Furosemide 40 Mg Tablet) 80 mg PO DAILY [facility]; Protocol Last Admin: 11/24/23 09:44 Dose: 80 mg Documented By: CLAY Glucose (Glucose Gel 15 Gm Gel..Gram.) 15 gm PO Q15M PRN; Protocol PRN Reason: per Hypoglycemia Standing Ord. Guaifenesin/Dextromethorphan (Guaifenesin Dm 200/20/10 Ml 10 Ml Syrup) 10 ml PO Q6H PRN PRN Reason: cough Last Admin: 11/24/23 05:55 Dose: 10 ml Documented By: TIANNA Heparin Sodium (Porcine) (Heparin Sodium,Porcine 5,000 Unit/Ml Vial) 5,000 unit SUBCUT Q12H [facility] Last Admin: 11/24/23 08:54 Dose: 5,000 unit Documented By: CLYA Hydralazine HCl (Hydralazine Hcl 50 Mg Tablet) 100 mg PO TID [facility]; Protocol Last Admin: 11/24/23 09:44 Dose: 100 mg Documented By: CLAY Sodium Chloride (Ns) 1,000 mls @ 100 mls/hr IVCONT .Q10H [facility] Last Admin: 11/24/23 03:11 Dose: 100 mls/hr Documented By: TIANNA Insulin Human Lispro (Insulin Lispro 100 Unit/Ml 3 Ml Vial) 0 unit SUBCUT QIDACHS [facility]; Protocol Last Admin: 11/24/23 07:49 Dose: 4 unit Documented By: CLAY Insulin Human Lispro (Insulin Lispro 100 Unit/Ml 3 Ml Vial) 5 unit SUBCUT QIDACHS [facility] Magnesium Oxide (Magnesium Oxide 400 Mg Tablet) 400 mg PO BIDPC [facility] Methylprednisolone Sodium Succinate (Methylprednisolone Sod Succ 40 Mg/Ml Vial) 40 mg IVPUSH Q12H [facility] Oseltamivir Phosphate (Oseltamivir Phosphate 30 Mg Capsule) 30 mg PO BID [facility]ISIO Stop: 11/28/23 09:01 Last Admin: 11/24/23 10:15 Dose: 30 mg Documented By: CLAY Sodium Chloride (0.9 % Sodium Chloride Flush 3 Ml Syringe) 3 ml IVFLUSH QSHIFT [facility] Last Admin: 11/24/23 07:53 Dose: Not Given Documented By: CLAY Non-Admin Reason: IV Running Sucralfate (Sucralfate 1 Gm Tablet) 1 gm PO QIDACHS [facility] Trazodone HCl (Trazodone Hcl 50 Mg Tablet) 50 mg PO BEDTIME [facility] Labs 11/24/23 06:29 11/24/23 06:29 Labs: Laboratory Results - last 24 hr 11/23/23 11/24/23 11/24/23 23:44 06:29 07:08 MCV 83.1 84.5 MCH 27.4 27.3 MCHC 33.0 32.3 RDW 14.9 15.2 Plt Count 208 211 MPV 11.4 11.3 Immature Gran % (Auto) 0.3 0.4 Neut % (Auto) 79.5 H 71.1 Lymph % (Auto) 8.5 L 17.3 L [place] % (Auto) 10.6 10.3 Eos % (Auto) 0.8 0.6 Baso % (Auto) 0.3 0.3 Lymph # (Auto) 0.9 L 1.7 [place] # (Auto) 1.1 1.0 Eos # (Auto) 0.1 0.1 Baso # (Auto) 0.0 0.0 Abs Immat Gran (auto) 0.03 0.04 H Absolute Neuts (auto) 8.0 7.1 Absolute Nucleated RBC 0.000 0.000 Nucleated RBC % (auto) 0.0 0.0 Anion Gap 15 14 Estim Creat Clear Calc 42.0 42.9 Estimated GFR 39 40 POC Glucose 241 H Random Glucose 273 H 206 H Calcium 9.1 8.7 Magnesium 2.2 Total Bilirubin 0.2 0.2 AST 23 24 ALT 29 30 Alkaline Phosphatase 121 H 124 H B-Natriuretic Peptide 93 Total Protein 6.8 6.9 Albumin 3.6 3.7 Lipase 35 COVID-19 (XANDER) Negative COVID-19 Clin Com See Note Influenza Type A (MAYELIN) Positive A Influenza Type B (MAYELIN) Negative Influenza A & B Note See Note 11/24/23 11/24/23 09:45 11:22 MCV MCH MCHC RDW Plt Count MPV Immature Gran % (Auto) Neut % (Auto) Lymph % (Auto) [place] % (Auto) Eos % (Auto) Baso % (Auto) Lymph # (Auto) [place] # (Auto) Eos # (Auto) Baso # (Auto) Abs Immat Gran (auto) Absolute Neuts (auto) Absolute Nucleated RBC Nucleated RBC % (auto) Anion Gap Estim Creat Clear Calc Estimated GFR POC Glucose 425 H* 370 H* Random Glucose Calcium Magnesium Total Bilirubin AST ALT Alkaline Phosphatase B-Natriuretic Peptide Total Protein Albumin Lipase COVID-19 (XANDER) COVID-19 Clin Com Influenza Type A (MAYELIN) Influenza Type B (MAYELIN) Influenza A & B Note Assessment and Plan (1) Acute respiratory failure with hypoxia: Status: Acute (2) Influenza A: Status: Acute Plan 48/m with diabete, chronic heart failure, HTN, CKD Acute hypoxic respiratory failure d/t copd exac d/t flu -O2 keep stat 92, bronchodilators and Steroid, tamiflu for influenza Chronic diastolic congestive heart failure. Currently compensated. BNP is normal. -Continue Lasix Type 2 diabetes mellitus with hyperglycemia d/t steroid, he takes Lantus only when sugar is high 27 unit -give Lantus 20, sliding scale insulin and pre-meal insulin Depression adn anxiety. Continue escitalopram. Essential hypertension. Hold antihypertensive medications as BP is currently soft. Chronic kidney disease 3b, stable dc ivf DVT prophylaxis: Heparin subcut. Code status: Full. inpt for acute hypoxia resp failure due to influenza needing iv steroid, high amount of O2 Quality Stroke Does the patient have a stroke diagnosis?: No VTE Prior VTE?: No VTE Risk Level:: Medical - moderate - high VTE Device Contraindication: Treatment Not Indicated VTE Drug Contraindication: N/A - Med Ordered
[2023-11-24 13:12] LABS: Glucose, Whole Blood 371 mg/dL (60-115)
[2023-11-24] MEDS: Acetaminophen 325 MG TABLET 950 MG PO (13:29)
[2023-11-24] MEDS: methylPREDNISolone Sod Succ 40 MG/ML VIAL IVPUSH (13:30)
[2023-11-24] MEDS: Sucralfate 1 GM TABLET PO ×3 (13:30→21:32)
[2023-11-24 14:11] LABS: Glucose, Whole Blood 451 mg/dL (60-115)
[2023-11-24 14:48] LABS: Glucose, Whole Blood 408 mg/dL (60-115)
[2023-11-24] MEDS: guaiFENesin DM 100/10/5 ML 5 ML SYRUP 10 ML PO (14:58)
--- NOTE | 2023-11-24 15:07 | PC.NURSE ---
Addendum entered by Jessy Urena RN 11/24/23 15:24: per MD Stephen, give 8u IV Insulin regular and recheck POC in 1hr. will given insulin per DEC Original Note: pt blood glucose elevated after 15units lispro given at 1331. pt POC now 408. MD Stephen made aware.
[2023-11-24] MEDS: Insulin Regular, Human 100 UNIT/ML 3 ML VIAL 8 UNIT IVPUSH (15:32)
[2023-11-24 16:40] LABS: Glucose, Whole Blood 400 mg/dL (60-115)
[2023-11-24 17:27] LABS: Glucose, Whole Blood 454 mg/dL (60-115)
[2023-11-24] MEDS: Magnesium Oxide 400 MG TABLET PO (17:56)
[2023-11-24] MEDS: 0.9 % Sodium Chloride Flush 3 ML SYRINGE IVFLUSH ×2 (17:56→21:37)
[2023-11-24 18:12] LABS: Glucose, Whole Blood 459 mg/dL (60-115)
[2023-11-24] MEDS: Insulin Regular/NS 100 UNIT/100 ML PLAST..BAG IVCONT (18:12)
[2023-11-24] MEDS: Insulin Regular, Human 100 UNIT/ML 3 ML VIAL 10 UNIT IVPUSH (18:34)
[2023-11-24 19:07] LABS: Glucose, Whole Blood 420 mg/dL (60-115)
[2023-11-24 19:39] LABS: Anion Gap 18 (12-20); Blood Urea Nitrogen 45 mg/dL (9-16); Calcium 8.8 mg/dL (8.4-10.2); Carbon Dioxide 16 mmol/L (22-29); Chloride 106 mmol/L (96-108); Creatinine Clr Calc Pharmacy 36.4; Estimated Glomerular Filt Rate 33; Glucose Random 469 mg/dL (60-115); Potassium 4.4 mmol/L (3.3-5.1); Sodium 136 mmol/L (135-145)
--- NOTE | 2023-11-24 19:46 | PM.EVENT ---
Event Note Date of Service: 11/24/23 Event Note: Blood sugars have been persitently high throughout the day. Lantus was given in the in the morning (pt states he only takes when sugars are high), Pre-meal insulin added to correctional insulin and also given intermittent boluses of IV insulin. Sugars stayed high and decision made to give in insulin drip which only be done in the ICU. BMP checked and bicab is trending lower, agap is within nl range but may worsen. I have thus discussed with the intensivitst for patient to be treated in the ICU for IV insulin drip, frequent sugar level check per icu protocol and IVF to halt progression to DKA, additionally stopping steroid which is contributing to hyperglycemia and also hold Lasix for now. Patient long acting insulin to be adjuste tomorrow based on insulin requirement. Check A1C Time Spent With Patient Time: Total time managing care of this patient today ____ minutes.
--- NOTE | 2023-11-24 19:52 | P.PNCC_ITS ---
Subjective Subjective Date of Service: 11/24/23 Interval History: ?The patient is a 48-year-old male with a past medical history of COPD on supplemental O2 as needed, diabetes mellitus,? congestive heart failure, hypertension, hyperlipidemia,? chronic kidney disease, who presented to the emergency room on 11/23/2023? with worsening shortness of breath. Viral panel positive for Flu A.? He was? admitted to Hospital Medicine for acute hypoxic respiratory failure due to influenza type a.? ?Since admission to the hospital medicine team,? patient blood? glucose elevated despite multiple doses of Lantus and IV pushes of insulin.? ?Patient requiring transfer to ICU for insulin drip for management of? hyperosmolar hyperglycemic syndrome.? Critical Care Time (minutes): 0 Physical Exam 2 Vital Signs: Vital Signs: Last Vital Signs Temp 98.5 F 11/24/23 18:15 Pulse 89 11/24/23 18:15 Resp 21 H 11/24/23 18:15 BP 140/69 H 11/24/23 18:15 Pulse Ox 96 11/24/23 18:15 O2 Del Method Nasal Cannula 11/24/23 16:00 O2 Flow Rate 5 11/24/23 18:15 BMI result Body Mass Index 24.6 ?General:? Alert oriented x3 no acute distress.? Speaking full sentences.? Speech is well articulated, thought process is coherent.? Following all commands. ?HEENT:? Head is normocephalic, atraumatic, pupils equal round reactive to light accommodation bilaterally.? Extraocular movements appear intact.? Buccal mucosa is dry, Neck is supple without lymphadenopathy. ?Cardiac:Clear S1-S2, no murmurs rubs or gallops. ?Pulmonary:? ?Diminished at bases. no wheezes, rales or rhonchi. ?Abdomen:? ?Abdomen soft, non-tender, non-distended. Normal bowel sounds. No pulsatile mass. No hepatosplenomegaly. ?Musculoskeletal:? Shaky, Moving all 4 extremities upon request a major joints, there is no crepitus or tenderness.? The strength is 5/5 bilaterally and throughout all 4 extremities.? Gait not assessed at this point. ?Neurologic:? cranial nerves 2-12 are grossly intact.? No focal deficits noted.Motor strength as above.?? ?Skin:? Intact, no lesions, edema, erythema, clubbing or cyanosis.? No ulcers. Vascular:? 2+ pulses upper and lower extremities distally.? Objective Data Labs 11/25/23 05:26 11/25/23 05:26 Labs: Laboratory Results - last 24 hr 11/23/23 11/24/23 11/24/23 23:44 06:29 07:08 WBC 10.1 9.9 RBC 4.19 L 4.58 L Hgb 11.5 L 12.5 L Hct 34.8 L 38.7 L MCV 83.1 84.5 MCH 27.4 27.3 MCHC 33.0 32.3 RDW 14.9 15.2 Plt Count 208 211 MPV 11.4 11.3 Immature Gran % (Auto) 0.3 0.4 Neut % (Auto) 79.5 H 71.1 Lymph % (Auto) 8.5 L 17.3 L [place] % (Auto) 10.6 10.3 Eos % (Auto) 0.8 0.6 Baso % (Auto) 0.3 0.3 Lymph # (Auto) 0.9 L 1.7 [place] # (Auto) 1.1 1.0 Eos # (Auto) 0.1 0.1 Baso # (Auto) 0.0 0.0 Abs Immat Gran (auto) 0.03 0.04 H Absolute Neuts (auto) 8.0 7.1 Absolute Nucleated RBC 0.000 0.000 Nucleated RBC % (auto) 0.0 0.0 Sodium 138 140 Potassium 4.0 4.3 Chloride 105 110 H Carbon Dioxide 22 20 L Anion Gap 15 14 BUN 44 H 36 H Creatinine 1.85 H 1.81 H Estim Creat Clear Calc 42.0 42.9 Estimated GFR 39 40 POC Glucose 241 H Random Glucose 273 H 206 H Calcium 9.1 8.7 Magnesium 2.2 Total Bilirubin 0.2 0.2 AST 23 24 ALT 29 30 Alkaline Phosphatase 121 H 124 H Troponin I High Sens 2.7 B-Natriuretic Peptide 93 Total Protein 6.8 6.9 Albumin 3.6 3.7 Lipase 35 COVID-19 (XANDRE) Negative COVID-19 Clin Com See Note Influenza Type A (MAYELIN) Positive A Influenza Type B (MAYELIN) Negative Influenza A & B Note See Note 11/24/23 11/24/23 11/24/23 09:45 11:22 13:06 WBC RBC Hgb Hct MCV MCH MCHC RDW Plt Count MPV Immature Gran % (Auto) Neut % (Auto) Lymph % (Auto) [place] % (Auto) Eos % (Auto) Baso % (Auto) Lymph # (Auto) [place] # (Auto) Eos # (Auto) Baso # (Auto) Abs Immat Gran (auto) Absolute Neuts (auto) Absolute Nucleated RBC Nucleated RBC % (auto) Sodium Potassium Chloride Carbon Dioxide Anion Gap BUN Creatinine Estim Creat Clear Calc Estimated GFR POC Glucose 425 H* 370 H* 371 H* Random Glucose Calcium Magnesium Total Bilirubin AST ALT Alkaline Phosphatase Troponin I High Sens B-Natriuretic Peptide Total Protein Albumin Lipase COVID-19 (XANDER) COVID-19 Clin Com Influenza Type A (MAYELIN) Influenza Type B (MAYELIN) Influenza A & B Note 11/24/23 11/24/23 11/24/23 14:06 14:45 16:35 WBC RBC Hgb Hct MCV MCH MCHC RDW Plt Count MPV Immature Gran % (Auto) Neut % (Auto) Lymph % (Auto) [place] % (Auto) Eos % (Auto) Baso % (Auto) Lymph # (Auto) [place] # (Auto) Eos # (Auto) Baso # (Auto) Abs Immat Gran (auto) Absolute Neuts (auto) Absolute Nucleated RBC Nucleated RBC % (auto) Sodium Potassium Chloride Carbon Dioxide Anion Gap BUN Creatinine Estim Creat Clear Calc Estimated GFR POC Glucose 451 H* 408 H* 400 H* Random Glucose Calcium Magnesium Total Bilirubin AST ALT Alkaline Phosphatase Troponin I High Sens B-Natriuretic Peptide Total Protein Albumin Lipase COVID-19 (XANDER) COVID-19 Clin Com Influenza Type A (MAYELIN) Influenza Type B (MAYELIN) Influenza A & B Note 11/24/23 11/24/23 11/24/23 17:22 18:09 19:00 WBC RBC Hgb Hct MCV MCH MCHC RDW Plt Count MPV Immature Gran % (Auto) Neut % (Auto) Lymph % (Auto) [place] % (Auto) Eos % (Auto) Baso % (Auto) Lymph # (Auto) [place] # (Auto) Eos # (Auto) Baso # (Auto) Abs Immat Gran (auto) Absolute Neuts (auto) Absolute Nucleated RBC Nucleated RBC % (auto) Sodium 136 Potassium 4.4 Chloride 106 Carbon Dioxide 16 L Anion Gap 18 BUN 45 H Creatinine 2.13 H Estim Creat Clear Calc 36.4 Estimated GFR 33 POC Glucose 454 H* 459 H* Random Glucose 469 H* Calcium 8.8 Magnesium Total Bilirubin AST ALT Alkaline Phosphatase Troponin I High Sens B-Natriuretic Peptide Total Protein Albumin Lipase COVID-19 (XANDER) COVID-19 Clin Com Influenza Type A (MAYELIN) Influenza Type B (MAYELIN) Influenza A & B Note 11/24/23 19:05 WBC RBC Hgb Hct MCV MCH MCHC RDW Plt Count MPV Immature Gran % (Auto) Neut % (Auto) Lymph % (Auto) [place] % (Auto) Eos % (Auto) Baso % (Auto) Lymph # (Auto) [place] # (Auto) Eos # (Auto) Baso # (Auto) Abs Immat Gran (auto) Absolute Neuts (auto) Absolute Nucleated RBC Nucleated RBC % (auto) Sodium Potassium Chloride Carbon Dioxide Anion Gap BUN Creatinine Estim Creat Clear Calc Estimated GFR POC Glucose 420 H* Random Glucose Calcium Magnesium Total Bilirubin AST ALT Alkaline Phosphatase Troponin I High Sens B-Natriuretic Peptide Total Protein Albumin Lipase COVID-19 (XANDER) COVID-19 Clin Com Influenza Type A (MAEYLIN) Influenza Type B (MAYELIN) Influenza A & B Note Progress Note: A&P Assessment and plan (1) Hyperosmolar hyperglycemic state (HHS): Status: Acute (2) Acute respiratory failure with hypoxia: Status: Acute (3) Influenza A: Status: Acute Plan Neuro: ? no acute issues Cardiac:? No acute issues Pulmonary:? ?Acute respiratory failure due to influenza type a:? continue Tamiflu,? weaning of supplemental oxygenation as tolerated.? Renal:? ?No acute issues Endo:? DM type 2/ HHS: ? patient? had elevated? blood sugars throughout the day despite multiple doses of Lantus and IV push insulin.? Bicarb was normal,? decreased to 16 but no anion gap. Likely HHS. ? Continue insulin drip? until acceptable glucose levels.? GI: ? No acute issues ID:? ?No acute Psych:? ? no acute issues? Miscellaneous:? No acute issues. Prophylaxis: subcut heparin Diet:? diabetic? CODE: FULL CODE ? Critical care time: ? patient does not qualify for critical care time ?Case discussed with attending Dr Mercer? Quality Stroke Does the patient have a stroke diagnosis?: No VTE Prior VTE?: No VTE Risk Level:: Medical - moderate - high VTE Device Contraindication: Treatment Not Indicated VTE Drug Contraindication: N/A - Med Ordered
[2023-11-24 19:58] LABS: Magnesium 2.1 mg/dL (1.6-2.6); Phosphorus 2.3 mg/dL (2.7-4.5)
[2023-11-24 20:01] LABS: Glucose, Whole Blood 326 mg/dL (60-115)
[2023-11-24 21:19] LABS: Glucose, Whole Blood 288 mg/dL (60-115)
[2023-11-24] MEDS: traZODone HCL 50 MG TABLET PO (21:32)
[2023-11-24 22:09] LABS: Glucose, Whole Blood 275 mg/dL (60-115)
[2023-11-24 22:57] LABS: Glucose, Whole Blood 302 mg/dL (60-115)
[2023-11-24] MEDS: Lactated Ringers 1,000 ML 80 ML IVCONT (23:07)
[2023-11-25] VITALS (21 sets, daily range): BP systolic 108–147; BP diastolic 30–79; PULSE 72–96; RESP 14–20; TEMP 36–37.1; O2SAT 92–99
[2023-11-25 00:17] LABS: Anion Gap 17 (12-20); Blood Urea Nitrogen 47 mg/dL (9-16); Carbon Dioxide 20 mmol/L (22-29); Chloride 107 mmol/L (96-108); Creatinine Clr Calc Pharmacy 40.6; Estimated Glomerular Filt Rate 38; Glucose Random 296 mg/dL (60-115); Magnesium 2.3 mg/dL (1.6-2.6); Phosphorus 2.8 mg/dL (2.7-4.5); Potassium 4.3 mmol/L (3.3-5.1); Sodium 140 mmol/L (135-145)
[2023-11-25 00:21] LABS: Glucose, Whole Blood 268 mg/dL (60-115)
[2023-11-25 01:07] LABS: Glucose, Whole Blood 260 mg/dL (60-115)
[2023-11-25 02:08] LABS: Glucose, Whole Blood 207 mg/dL (60-115)
[2023-11-25] MEDS: Dextrose 5 % and Lactated Ring 1,000 ML 50 ML IVCONT (02:15)
[2023-11-25] MEDS: Acetaminophen 325 MG TABLET 950 MG PO (02:20)
[2023-11-25 03:00] LABS: Glucose, Whole Blood 201 mg/dL (60-115)
[2023-11-25 03:51] LABS: Glucose, Whole Blood 200 mg/dL (60-115)
[2023-11-25 05:00] LABS: Glucose, Whole Blood 191 mg/dL (60-115)
[2023-11-25 05:35] LABS: VBG Base Excess 0.3 mmol/L; VBG HCO3 23 mmol/L (22-26); VBG pCO2 33 mmHg; VBG pH 7.45 (7.32-7.43); VBG pO2 63 mmHg
[2023-11-25 05:38] LABS: MANUAL DIFF FLAG NO
[2023-11-25 05:40] LABS: Basophils Percent Auto 0.1 % (0-2); Eosinophils Absolute Auto 0.1 X10*3/uL (0.0-0.4); Eosinophils Percent Auto 0.6 % (0-4); Hematocrit 34.3 % (42.0-52.0); Hemoglobin 11.6 g/dl (14.0-18.0); Imm Gran Abs Auto 0.11 X10*3/uL (0.00-0.03); Imm Gran Pct Auto 0.6 % (0.0-0.4); Lymphocytes Absolute Auto 0.9 X10*3/uL (1.2-4.9); Lymphocytes Percent Auto 4.5 % (20-40); Mean Corpuscular HGB Conc 33.8 g/dl (31.0-36.0); Mean Corpuscular Hemoglobin 27.6 pg (27.0-33.0); Mean Corpuscular Volume 81.7 fL (80.0-98.0); Mean Platelet Volume 11.3 fL (9.4-12.4); Monocytes Absolute Auto 1.2 X10*3/uL (0.1-1.2); Monocytes Percent Auto 6.1 % (2-11); Neutrophils Percent Auto 88.1 % (45-73); Platelet Count 216 X10*3/uL (160-400); Red Cell Distribution Width 14.9 % (11.0-16.0); White Blood Count 19.3 X10*3/uL (4.8-10.8)
[2023-11-25 05:56] LABS: Alanine Aminotransferase 23 U/L (0-40); Albumin Level 3.5 g/dL (3.5-5.0); Alkaline Phosphatase 104 U/L (39-117); Anion Gap 15 (12-20); Aspartate Amino Transferase 19 U/L (5-37); Bilirubin Total 0.2 mg/dL (0.0-1.0); Blood Urea Nitrogen 41 mg/dL (9-16); Carbon Dioxide 21 mmol/L (22-29); Chloride 109 mmol/L (96-108); Creatinine Clr Calc Pharmacy 45.9; Estimated Glomerular Filt Rate 43; Glucose Random 204 mg/dL (60-115); Magnesium 2.2 mg/dL (1.6-2.6); Phosphorus 3.5 mg/dL (2.7-4.5); Potassium 4.6 mmol/L (3.3-5.1); Sodium 140 mmol/L (135-145); Total Protein 6.6 g/dL (6.5-8.0)
[2023-11-25] MEDS: Insulin Glargine,Hum.rec.anlog 100 UNIT/ML 10 ML VIAL 35 UNIT SUBCUT (06:15)
[2023-11-25 07:41] LABS: Glucose, Whole Blood 198 mg/dL (60-115)
[2023-11-25] MEDS: Sucralfate 1 GM TABLET PO ×4 (07:59→20:49)
[2023-11-25] MEDS: Insulin Lispro 100 UNIT/ML 3 ML VIAL SUBCUT ×4 (07:59→20:51)
[2023-11-25] MEDS: Atorvastatin Calcium 40 MG TABLET PO (08:00)
[2023-11-25] MEDS: Oseltamivir Phosphate 30 MG CAPSULE PO ×2 (08:00→20:48)
[2023-11-25] MEDS: Heparin Sodium,Porcine 5,000 UNIT/ML VIAL 5000 UNIT SUBCUT ×2 (08:00→20:47)
[2023-11-25] MEDS: Escitalopram Oxalate 10 MG TABLET PO (08:00)
[2023-11-25] MEDS: Aspirin 81 MG TAB.CHEW PO (08:00)
[2023-11-25] MEDS: Ferrous Sulfate 324 MG TABLET.DR PO (08:00)
[2023-11-25] MEDS: hydrALAZINE HCl 50 MG TABLET 100 MG PO ×3 (08:00→20:48)
[2023-11-25] MEDS: amLODIPine Besylate 10 MG TABLET PO (08:00)
[2023-11-25] MEDS: 0.9 % Sodium Chloride Flush 3 ML SYRINGE IVFLUSH ×3 (08:00→20:52)
[2023-11-25] MEDS: Furosemide 40 MG TABLET 80 MG PO (08:01)
[2023-11-25] MEDS: Magnesium Oxide 400 MG TABLET PO ×2 (08:01→16:52)
[2023-11-25] MEDS: Fluticasone Propionate 250 MCG BLST.W.DEV 1 PUFF INHALE ×2 (08:08→20:02)
[2023-11-25] MEDS: Albuterol/Iprat 2.5/0.5MG 3 ML AMPUL.NEB INHALE ×3 (08:09→15:51)
--- NOTE | 2023-11-25 09:57 | PM.CCPN ---
Subjective Subjective Date of Service: 11/25/23 Interval History: 48-year-old gentleman with underlying COPD, diabetes mellitus, congestive heart failure, hypertension, CKD admitted on 11/23/2023 with worsening dyspnea secondary to influenza A. Patient admitted to general medical james and started on empiric treatment. Hospital course significant for development of diabetic hyperglycemic hyperosmolar state requiring initiation of insulin drip and transfer to intensive care unit. No events overnight. Titrated off insulin drip. Critical Care Time (minutes): 0 Physical Exam Vital Signs: Vital Signs: Last Vital Signs Temp 96.9 F 11/25/23 08:00 Pulse 85 11/25/23 09:00 Resp 15 11/25/23 09:00 BP 139/70 11/25/23 09:00 Pulse Ox 97 11/25/23 09:00 O2 Del Method Nasal Cannula 11/25/23 09:00 O2 Flow Rate 3 11/25/23 09:00 BMI result Body Mass Index 24.6 Const: General: no acute distress, alert and awake Eyes: Sclerae: sclerae normal EOM: EOMs intact bilaterally Neck: Neck: Yes no lymphadenopathy, Yes trachea midline and Yes supple Resp: Effort & Inspection: normal respiratory effort and no respiratory distress Auscultation: crackles (Bilateral) Cardio: Rate: regular rate Rhythm: regular rhythm Heart sounds: no gallops, no murmurs and no rubs GI: Palpation (GI): Soft to palpation and Other GI palpation findings present ( Nontender) Auscultation: normal bowel sounds Extrem: General: Yes no pedal edema, No clubbing and No cyanosis Objective Data Labs 11/25/23 05:26 11/25/23 05:26 Labs: Laboratory Results - last 24 hr 11/24/23 11/24/23 11/24/23 11:22 13:06 14:06 WBC RBC Hgb Hct MCV MCH MCHC RDW Plt Count MPV Immature Gran % (Auto) Neut % (Auto) Lymph % (Auto) [place] % (Auto) Eos % (Auto) Baso % (Auto) Lymph # (Auto) [place] # (Auto) Eos # (Auto) Baso # (Auto) Abs Immat Gran (auto) Absolute Neuts (auto) Absolute Nucleated RBC Nucleated RBC % (auto) Hold Purple Top VBG pH VBG pCO2 VBG pO2 VBG HCO3 VBG O2 Saturation VBG Base Excess Sodium Potassium Chloride Carbon Dioxide Anion Gap BUN Creatinine Estim Creat Clear Calc Estimated GFR POC Glucose 370 H* 371 H* 451 H* Random Glucose Calcium Phosphorus Magnesium Total Bilirubin AST ALT Alkaline Phosphatase Total Protein Albumin 11/24/23 11/24/23 11/24/23 14:45 16:35 17:22 WBC RBC Hgb Hct MCV MCH MCHC RDW Plt Count MPV Immature Gran % (Auto) Neut % (Auto) Lymph % (Auto) [place] % (Auto) Eos % (Auto) Baso % (Auto) Lymph # (Auto) [place] # (Auto) Eos # (Auto) Baso # (Auto) Abs Immat Gran (auto) Absolute Neuts (auto) Absolute Nucleated RBC Nucleated RBC % (auto) Hold Purple Top VBG pH VBG pCO2 VBG pO2 VBG HCO3 VBG O2 Saturation VBG Base Excess Sodium Potassium Chloride Carbon Dioxide Anion Gap BUN Creatinine Estim Creat Clear Calc Estimated GFR POC Glucose 408 H* 400 H* 454 H* Random Glucose Calcium Phosphorus Magnesium Total Bilirubin AST ALT Alkaline Phosphatase Total Protein Albumin 11/24/23 11/24/23 11/24/23 18:09 19:00 19:05 WBC RBC Hgb Hct MCV MCH MCHC RDW Plt Count MPV Immature Gran % (Auto) Neut % (Auto) Lymph % (Auto) [place] % (Auto) Eos % (Auto) Baso % (Auto) Lymph # (Auto) [place] # (Auto) Eos # (Auto) Baso # (Auto) Abs Immat Gran (auto) Absolute Neuts (auto) Absolute Nucleated RBC Nucleated RBC % (auto) Hold Purple Top VBG pH VBG pCO2 VBG pO2 VBG HCO3 VBG O2 Saturation VBG Base Excess Sodium 136 Potassium 4.4 Chloride 106 Carbon Dioxide 16 L Anion Gap 18 BUN 45 H Creatinine 2.13 H Estim Creat Clear Calc 36.4 Estimated GFR 33 POC Glucose 459 H* 420 H* Random Glucose 469 H* Calcium 8.8 Phosphorus 2.3 L Magnesium 2.1 Total Bilirubin AST ALT Alkaline Phosphatase Total Protein Albumin 11/24/23 11/24/23 11/24/23 19:57 21:12 22:04 WBC RBC Hgb Hct MCV MCH MCHC RDW Plt Count MPV Immature Gran % (Auto) Neut % (Auto) Lymph % (Auto) [place] % (Auto) Eos % (Auto) Baso % (Auto) Lymph # (Auto) [place] # (Auto) Eos # (Auto) Baso # (Auto) Abs Immat Gran (auto) Absolute Neuts (auto) Absolute Nucleated RBC Nucleated RBC % (auto) Hold Purple Top VBG pH VBG pCO2 VBG pO2 VBG HCO3 VBG O2 Saturation VBG Base Excess Sodium Potassium Chloride Carbon Dioxide Anion Gap BUN Creatinine Estim Creat Clear Calc Estimated GFR POC Glucose 326 H 288 H 275 H Random Glucose Calcium Phosphorus Magnesium Total Bilirubin AST ALT Alkaline Phosphatase Total Protein Albumin 11/24/23 11/24/23 11/25/23 22:51 23:36 00:15 WBC RBC Hgb Hct MCV MCH MCHC RDW Plt Count MPV Immature Gran % (Auto) Neut % (Auto) Lymph % (Auto) [place] % (Auto) Eos % (Auto) Baso % (Auto) Lymph # (Auto) [place] # (Auto) Eos # (Auto) Baso # (Auto) Abs Immat Gran (auto) Absolute Neuts (auto) Absolute Nucleated RBC Nucleated RBC % (auto) Hold Purple Top SEE NOTE VBG pH VBG pCO2 VBG pO2 VBG HCO3 VBG O2 Saturation VBG Base Excess Sodium 140 Potassium 4.3 Chloride 107 Carbon Dioxide 20 L Anion Gap 17 BUN 47 H Creatinine 1.91 H Estim Creat Clear Calc 40.6 Estimated GFR 38 POC Glucose 302 H 268 H Random Glucose 296 H Calcium 9.0 Phosphorus 2.8 Magnesium 2.3 Total Bilirubin AST ALT Alkaline Phosphatase Total Protein Albumin 11/25/23 11/25/23 11/25/23 01:04 02:03 02:57 WBC RBC Hgb Hct MCV MCH MCHC RDW Plt Count MPV Immature Gran % (Auto) Neut % (Auto) Lymph % (Auto) [place] % (Auto) Eos % (Auto) Baso % (Auto) Lymph # (Auto) [place] # (Auto) Eos # (Auto) Baso # (Auto) Abs Immat Gran (auto) Absolute Neuts (auto) Absolute Nucleated RBC Nucleated RBC % (auto) Hold Purple Top VBG pH VBG pCO2 VBG pO2 VBG HCO3 VBG O2 Saturation VBG Base Excess Sodium Potassium Chloride Carbon Dioxide Anion Gap BUN Creatinine Estim Creat Clear Calc Estimated GFR POC Glucose 260 H 207 H 201 H Random Glucose Calcium Phosphorus Magnesium Total Bilirubin AST ALT Alkaline Phosphatase Total Protein Albumin 11/25/23 11/25/23 11/25/23 03:47 04:54 05:26 WBC 19.3 H RBC 4.20 L Hgb 11.6 L Hct 34.3 L MCV 81.7 MCH 27.6 MCHC 33.8 RDW 14.9 Plt Count 216 MPV 11.3 Immature Gran % (Auto) 0.6 H Neut % (Auto) 88.1 H Lymph % (Auto) 4.5 L [place] % (Auto) 6.1 Eos % (Auto) 0.6 Baso % (Auto) 0.1 Lymph # (Auto) 0.9 L [place] # (Auto) 1.2 Eos # (Auto) 0.1 Baso # (Auto) 0.0 Abs Immat Gran (auto) 0.11 H Absolute Neuts (auto) 17.0 H Absolute Nucleated RBC 0.000 Nucleated RBC % (auto) 0.0 Hold Purple Top VBG pH VBG pCO2 VBG pO2 VBG HCO3 VBG O2 Saturation VBG Base Excess Sodium 140 Potassium 4.6 Chloride 109 H Carbon Dioxide 21 L Anion Gap 15 BUN 41 H Creatinine 1.69 H Estim Creat Clear Calc 45.9 Estimated GFR 43 POC Glucose 200 H 191 H Random Glucose 204 H Calcium 9.0 Phosphorus 3.5 Magnesium 2.2 Total Bilirubin 0.2 AST 19 ALT 23 Alkaline Phosphatase 104 Total Protein 6.6 Albumin 3.5 11/25/23 11/25/23 05:29 07:35 WBC RBC Hgb Hct MCV MCH MCHC RDW Plt Count MPV Immature Gran % (Auto) Neut % (Auto) Lymph % (Auto) [place] % (Auto) Eos % (Auto) Baso % (Auto) Lymph # (Auto) [place] # (Auto) Eos # (Auto) Baso # (Auto) Abs Immat Gran (auto) Absolute Neuts (auto) Absolute Nucleated RBC Nucleated RBC % (auto) Hold Purple Top VBG pH 7.45 H VBG pCO2 33 VBG pO2 63 VBG HCO3 23 VBG O2 Saturation 89.0 VBG Base Excess 0.3 Sodium Potassium Chloride Carbon Dioxide Anion Gap BUN Creatinine Estim Creat Clear Calc Estimated GFR POC Glucose 198 H Random Glucose Calcium Phosphorus Magnesium Total Bilirubin AST ALT Alkaline Phosphatase Total Protein Albumin Progress Note: A&P Assessment and plan (1) Hyperosmolar hyperglycemic state (HHS): Status: Acute (2) Acute respiratory failure with hypoxia: Status: Acute (3) Influenza A: Status: Acute (4) Chronic heart failure with preserved ejection fraction (HFpEF): Status: Acute (5) Diabetes: Status: Acute (6) COPD (chronic obstructive pulmonary disease): Status: Acute Plan Assessment: 88-year-old gentleman with multiple medical comorbidities admitted with dyspnea and acute on chronic hypoxia secondary to influenza a, further exacerbated by diabetic hyperglycemic hyperosmolar state. Plan: Neuro: No acute issues. Cardiac: No acute issues. Underlying diastolic congestive heart failure. Continue home regimen. Pulmonary: Acute on chronic hypoxic respiratory failure secondary to influenza a on the background of COPD. Continue to titrate off supplemental oxygen as tolerated. Renal: Acute kidney injury on the background of chronic kidney disease, improving. Non oliguric. Continue to monitor renal indices and urine output. Endo: Diabetic hyperglycemic hyperosmolar state secondary to underlying viral infection, titrated off insulin drip. Continue on subcutaneous insulin. GI: No acute issues. ID: Influenza A, continue Tamiflu. Heme/Onc: No acute issues. Psych: No acute issues. Miscellaneous: No acute issues. Prophylaxis: Heparin Diet: Diabetic Quality Stroke Does the patient have a stroke diagnosis?: No VTE Prior VTE?: No VTE Risk Level:: Medical - moderate - high VTE Device Contraindication: Treatment Not Indicated VTE Drug Contraindication: N/A - Med Ordered
[2023-11-25 10:13] LABS: Venous Blood Gas Refer to POC result
[2023-11-25 10:30] LABS: Estimated Average Glucose 197 mg/dL; Hemoglobin A1c % 8.5 % (<6.0)
[2023-11-25 11:23] LABS: Glucose, Whole Blood 222 mg/dL (60-115)
--- NOTE | 2023-11-25 14:34 | PM.EVENT ---
Event Note Date of Service: 11/25/23 Event Note: 48 year old male with DM, CHF, HTN, CKD admitted for respiratory failure due to COPD and influenza. blood sugars elevated persistently/hyperglycemic hyperosmolar state and was transferred to ICU for insulin drip. He remained in ICU overnight and was downgraded to the medical floor 11/25 and restarted on Lantus which improvement in blood sugars. Time Spent With Patient Time: Total time managing care of this patient today ____ minutes.
[2023-11-25 15:35] LABS: Glucose, Whole Blood 289 mg/dL (60-115)
[2023-11-25] MEDS: guaiFENesin DM 100/10/5 ML 5 ML SYRUP 10 ML PO (17:55)
[2023-11-25 19:48] LABS: Glucose, Whole Blood 332 mg/dL (60-115)
[2023-11-25] MEDS: traZODone HCL 50 MG TABLET PO (20:49)
--- NOTE | 2023-11-25 22:46 | PC.RT ---
Rt spoke to patient about wearing CPAP for NOC support and pt refused
[2023-11-26] VITALS (9 sets, daily range): BP systolic 124–175; BP diastolic 61–84; PULSE 70–96; RESP 15–18; TEMP 36.3–37.2; O2SAT 93–98
[2023-11-26 07:17] LABS: MANUAL DIFF FLAG NO
[2023-11-26 07:24] LABS: Basophils Percent Auto 0.3 % (0-2); Eosinophils Percent Auto 0.1 % (0-4); Hematocrit 36.1 % (42.0-52.0); Hemoglobin 11.8 g/dl (14.0-18.0); Imm Gran Abs Auto 0.06 X10*3/uL (0.00-0.03); Imm Gran Pct Auto 0.4 % (0.0-0.4); Lymphocytes Absolute Auto 2.3 X10*3/uL (1.2-4.9); Lymphocytes Percent Auto 16.8 % (20-40); Mean Corpuscular HGB Conc 32.7 g/dl (31.0-36.0); Mean Corpuscular Hemoglobin 27.6 pg (27.0-33.0); Mean Corpuscular Volume 84.5 fL (80.0-98.0); Mean Platelet Volume 12.4 fL (9.4-12.4); Monocytes Absolute Auto 1.1 X10*3/uL (0.1-1.2); Neutrophils Absolute Auto 10.3 x10*3/uL (2.0-8.3); Neutrophils Percent Auto 74.4 % (45-73); Platelet Count 209 X10*3/uL (160-400); Red Blood Count 4.27 X10*6/uL (4.60-5.80); Red Cell Distribution Width 15.5 % (11.0-16.0); White Blood Count 13.8 X10*3/uL (4.8-10.8)
[2023-11-26 07:27] LABS: Glucose, Whole Blood 158 mg/dL (60-115)
[2023-11-26 07:43] LABS: Anion Gap 15 (12-20); Blood Urea Nitrogen 35 mg/dL (9-16); Calcium 8.8 mg/dL (8.4-10.2); Carbon Dioxide 25 mmol/L (22-29); Chloride 108 mmol/L (96-108); Creatinine Clr Calc Pharmacy 48.2; Estimated Glomerular Filt Rate 46; Glucose Random 150 mg/dL (60-115); Potassium 4.5 mmol/L (3.3-5.1); Sodium 143 mmol/L (135-145)
[2023-11-26] MEDS: Sucralfate 1 GM TABLET PO ×4 (07:50→22:02)
[2023-11-26] MEDS: hydrALAZINE HCl 50 MG TABLET 100 MG PO ×3 (07:50→22:02)
[2023-11-26] MEDS: Oseltamivir Phosphate 30 MG CAPSULE PO ×2 (07:50→22:02)
[2023-11-26] MEDS: Aspirin 81 MG TAB.CHEW PO (07:51)
[2023-11-26] MEDS: Magnesium Oxide 400 MG TABLET PO ×2 (07:51→17:48)
[2023-11-26] MEDS: amLODIPine Besylate 10 MG TABLET PO (07:51)
[2023-11-26] MEDS: Ferrous Sulfate 324 MG TABLET.DR PO (07:51)
[2023-11-26] MEDS: Furosemide 40 MG TABLET 80 MG PO (07:51)
[2023-11-26] MEDS: Atorvastatin Calcium 40 MG TABLET PO (07:51)
[2023-11-26] MEDS: Insulin Glargine,Hum.rec.anlog 100 UNIT/ML 10 ML VIAL 30 UNIT SUBCUT (07:52)
[2023-11-26] MEDS: Escitalopram Oxalate 10 MG TABLET PO (07:52)
[2023-11-26] MEDS: Insulin Lispro 100 UNIT/ML 3 ML VIAL SUBCUT ×2 (07:53→22:03)
[2023-11-26] MEDS: 0.9 % Sodium Chloride Flush 3 ML SYRINGE IVFLUSH ×3 (08:01→22:08)
[2023-11-26] MEDS: Heparin Sodium,Porcine 5,000 UNIT/ML VIAL 5000 UNIT SUBCUT ×2 (08:01→22:01)
[2023-11-26] MEDS: Fluticasone Propionate 250 MCG BLST.W.DEV 1 PUFF INHALE ×2 (08:36→19:47)
[2023-11-26 11:25] LABS: Glucose, Whole Blood 123 mg/dL (60-115)
--- NOTE | 2023-11-26 12:12 | P.PNIM_ITS ---
Subjective Subjective Date of Service: 11/26/23 Interval History: seen and examined this morning follow up copd exacerbation, influenza a, hyperglycemia not feeling well today, reporting cough, weakness, sinus congestion, decreased appetite no sob or chest pain Review of Systems Review of Systems: Yes all other systems are reviewed and are negative Constitutional Constitutional: Denies chills and Denies fever(s) Cardiovascular Cardiovascular: Denies chest pain Respiratory Respiratory: Reports cough Gastrointestinal Gastrointestinal: Denies abdominal pain Physical Exam 2 Vital Signs: Vital Signs: Last Vital Signs Temp 98.5 F 11/26/23 11:09 Pulse 73 11/26/23 11:09 Resp 18 11/26/23 11:09 BP 141/64 H 11/26/23 11:09 Pulse Ox 96 11/26/23 11:09 O2 Del Method Room Air 11/26/23 11:09 O2 Flow Rate 3 11/25/23 11:00 BMI result Body Mass Index 24.6 Const: General: cooperative, comfortable, no acute distress, alert and awake Nutritional Appearance: average body habitus Orientation/consciousness: p atient oriented x3 Resp: Other: no wheezing Effort & Inspection: normal respiratory effort, able to speak in complete sentences, no respiratory distress and no use of accessory muscles A uscultation: clear to auscultation bilaterally Cardio: Rate: regular rate Heart sounds: S1 normal heart sound present GI: Inspection: No distended Palpation (GI): Soft to palpation and nontender Neuro: General: patient oriented x3, moves all extremities and CN's II-XI intact bilaterally Extrem: General: Yes no pedal edema Objective Data Active Medications Acetaminophen (Acetaminophen 325 Mg Tablet) 950 mg PO Q6H PRN PRN Reason: Fever Last Admin: 11/25/23 02:20 Dose: 950 mg Documented By: STONE Albuterol Sulfate (Albuterol Sulfate 90 Mcg 8 Gm Inhaler) 2 puff INHALE Q4H PRN PRN Reason: bronchospasm Amlodipine Besylate (Amlodipine Besylate 10 Mg Tablet) 10 mg PO DAILY [facility]; Protocol Last Admin: 11/26/23 07:51 Dose: 10 mg Documented By: LIVIA Aspirin (Aspirin 81 Mg Tab.Chew) 81 mg PO DAILY [facility] Last Admin: 11/26/23 07:51 Dose: 81 mg Documented By: LIVIA Atorvastatin Calcium (Atorvastatin Calcium 40 Mg Tablet) 40 mg PO DAILY [facility] Last Admin: 11/26/23 07:51 Dose: 40 mg Documented By: LIVIA Dextrose (Dextrose 50 % 25 Gm/50 Ml Syringe) 25 gm IVPUSH Q15M PRN; Protocol PRN Reason: per Hypoglycemia Standing Ord. Escitalopram Oxalate (Escitalopram Oxalate 10 Mg Tablet) 10 mg PO DAILY [facility] Last Admin: 11/26/23 07:52 Dose: 10 mg Documented By: LIVIA Ferrous Sulfate (Ferrous Sulfate 324 Mg Tablet.) 324 mg PO DAILY [facility] Last Admin: 11/26/23 07:51 Dose: 324 mg Documented By: LIVIA Fluticasone Propionate (Fluticasone Propionate 250 Mcg Blst.W.Dev) 1 puff INHALE RBID [facility] Last Admin: 11/26/23 08:36 Dose: 1 puff Documented By: SUZANNE Furosemide (Furosemide 40 Mg Tablet) 80 mg PO DAILY [facility]; Protocol Last Admin: 11/26/23 07:51 Dose: 80 mg Documented By: LIVIA Glucose (Glucose Gel 15 Gm Gel..Gram.) 15 gm PO Q15M PRN; Protocol PRN Reason: per Hypoglycemia Standing Ord. Guaifenesin/Dextromethorphan (Guaifenesin Dm 100/10/5 Ml 5 Ml Syrup) 10 ml PO Q6H PRN PRN Reason: cough Last Admin: 11/25/23 17:55 Dose: 10 ml Documented By: LIVIA Heparin Sodium (Porcine) (Heparin Sodium,Porcine 5,000 Unit/Ml Vial) 5,000 unit SUBCUT Q12H [facility] Last Admin: 11/26/23 08:01 Dose: 5,000 unit Documented By: LIVIA Hydralazine HCl (Hydralazine Hcl 50 Mg Tablet) 100 mg PO TID [facility]; Protocol Last Admin: 11/26/23 07:50 Dose: 100 mg Documented By: LIVIA Insulin Glargine (Insulin Glargine,Hum.Rec.Anlog 100 Unit/Ml 10 Ml Vial) 30 unit SUBCUT DAILY [facility] Last Admin: 11/26/23 07:52 Dose: 30 unit Documented By: LIVIA Insulin Human Lispro (Insulin Lispro 100 Unit/Ml 3 Ml Vial) 0 unit SUBCUT QIDACHS [facility]; Protocol Last Admin: 11/26/23 07:53 Dose: 2 unit Documented By: LIVIA [facility]esium Oxide ([facility] 400 Mg Tablet) [facility] Admin: 11/26/23 07:51 Dose: 400 mg Documented By: LIVIA Oseltamivir Phosphate (Oseltamivir Phosphate 30 Mg Capsule) 30 mg PO BID [facility] Stop: 11/28/23 09:01 Last Admin: 11/26/23 07:50 Dose: 30 mg Documented By: LIVIA Sodium Chloride (0.9 % Sodium Chloride Flush 3 Ml Syringe) 3 ml IVFLUSH QSHIFT [facility] Last Admin: 11/26/23 08:01 Dose: 3 ml Documented By: LIVIA Sucralfate (Sucralfate 1 Gm Tablet) 1 gm PO QIDACHS [facility] Last Admin: 11/26/23 07:50 Dose: 1 gm Documented By: LIVIA Trazodone HCl (Trazodone Hcl 50 Mg Tablet) 50 mg PO BEDTIME [facility] Last Admin: 11/25/23 20:49 Dose: 50 mg Documented By: RAMSESSU Labs 11/26/23 06:39 11/26/23 06:39 Labs: Laboratory Results - last 24 hr 11/25/23 11/25/23 11/26/23 15:20 19:23 06:39 MCV 84.5 MCH 27.6 MCHC 32.7 RDW 15.5 Plt Count 209 MPV 12.4 Immature Gran % (Auto) 0.4 Neut % (Auto) 74.4 H Lymph % (Auto) 16.8 L [place] % (Auto) 8.0 Eos % (Auto) 0.1 Baso % (Auto) 0.3 Lymph # (Auto) 2.3 [place] # (Auto) 1.1 Eos # (Auto) 0.0 Baso # (Auto) 0.0 Abs Immat Gran (auto) 0.06 H Absolute Neuts (auto) 10.3 H Absolute Nucleated RBC 0.000 Nucleated RBC % (auto) 0.0 Anion Gap 15 Estim Creat Clear Calc 48.2 Estimated GFR 46 POC Glucose 289 H 332 H Random Glucose 150 H Calcium 8.8 11/26/23 11/26/23 07:11 11:11 MCV MCH MCHC RDW Plt Count MPV Immature Gran % (Auto) Neut % (Auto) Lymph % (Auto) [place] % (Auto) Eos % (Auto) Baso % (Auto) Lymph # (Auto) [place] # (Auto) Eos # (Auto) Baso # (Auto) Abs Immat Gran (auto) Absolute Neuts (auto) Absolute Nucleated RBC Nucleated RBC % (auto) Anion Gap Estim Creat Clear Calc Estimated GFR POC Glucose 158 H 123 H Random Glucose Calcium Assessment and Plan (1) Influenza A: Status: Acute (2) Hyperosmolar hyperglycemic state (HHS): Status: Acute Plan This is a 48/m with diabetes, chronic heart failure, HTN, CKD who presented with SOB found to have COPD exacerbation and influenza A course complicated by steroid induced hyperglycemia and hyperosmolar state requiring brief stay in the ICU for insulin drip, downgraded back to the medical floor on 11/25 Acute hypoxic respiratory failure d/t copd exacerbation d/t flu off supplemental oxygen steroids d/c cxr negative for pneumonia continue prn bronchodilator therapy tamiflu for influenza Chronic diastolic congestive heart failure. Currently compensated. BNP is normal. Continue po Lasix Type 2 diabetes mellitus with hyperglycemia d/t steroid uses insulin pump at baseline, takes Lantus only when sugar is high blood sugars better controlled on current regimen, will continue Lantus and SSI coverage Depression and anxiety. Continue escitalopram. Essential hypertension continue norvasc, hydralazine Chronic kidney disease 3b, stable d/c IVF DVT prophylaxis: Heparin subcut. Code status: Full. requires ongoing inpatient stay for close monitoring of unstable blood sugar and respiratory status Quality Stroke Does the patient have a stroke diagnosis?: No VTE Prior VTE?: No VTE Risk Level:: Medical - moderate - high VTE Device Contraindication: Treatment Not Indicated VTE Drug Contraindication: N/A - Med Ordered
[2023-11-26 16:36] LABS: Glucose, Whole Blood 140 mg/dL (60-115)
[2023-11-26 21:14] LABS: Glucose, Whole Blood 152 mg/dL (60-115)
[2023-11-26] MEDS: traZODone HCL 50 MG TABLET PO (22:02)
[2023-11-26] MEDS: Acetaminophen 325 MG TABLET 975 MG PO (22:02)
[2023-11-27 03:07] VITALS: BP 151/75; PULSE 76; RESP 18; TEMP 36.4; O2SAT 94
[2023-11-27 03:22] LABS: Glucose, Whole Blood 96 mg/dL (60-115)
[2023-11-27 07:21] VITALS: BP 122/65; PULSE 65; RESP 17; TEMP 36.8; O2SAT 94
[2023-11-27 07:38] LABS: Glucose, Whole Blood 112 mg/dL (60-115)
[2023-11-27] MEDS: Fluticasone Propionate 250 MCG BLST.W.DEV 1 PUFF INHALE (08:29)
[2023-11-27 08:30] VITALS: PULSE 65; RESP 17; O2SAT 95
[2023-11-27] MEDS: Heparin Sodium,Porcine 5,000 UNIT/ML VIAL 5000 UNIT SUBCUT (10:17)
[2023-11-27] MEDS: 0.9 % Sodium Chloride Flush 3 ML SYRINGE IVFLUSH (10:18)
[2023-11-27] MEDS: Insulin Glargine,Hum.rec.anlog 100 UNIT/ML 10 ML VIAL 30 UNIT SUBCUT (10:18)
[2023-11-27] MEDS: hydrALAZINE HCl 50 MG TABLET 100 MG PO (10:18)
[2023-11-27] MEDS: Aspirin 81 MG TAB.CHEW PO (10:18)
[2023-11-27] MEDS: amLODIPine Besylate 10 MG TABLET PO (10:18)
[2023-11-27] MEDS: Magnesium Oxide 400 MG TABLET PO (10:18)
[2023-11-27] MEDS: Atorvastatin Calcium 40 MG TABLET PO (10:19)
[2023-11-27] MEDS: Furosemide 40 MG TABLET 80 MG PO (10:19)
[2023-11-27] MEDS: Ferrous Sulfate 324 MG TABLET.DR PO (10:19)
[2023-11-27] MEDS: Escitalopram Oxalate 10 MG TABLET PO (10:19)
[2023-11-27] MEDS: Oseltamivir Phosphate 30 MG CAPSULE PO (10:19)
[2023-11-27 11:20] VITALS: BP 131/64; PULSE 87; RESP 18; TEMP 36.2; O2SAT 97
[2023-11-27] MEDS: Sucralfate 1 GM TABLET PO (11:29)
[2023-11-27 11:58] LABS: Glucose, Whole Blood 134 mg/dL (60-115)
--- NOTE | 2023-11-27 13:02 | PM.DS ---
DS: Providers Provider Date of Service: 11/27/23 Date of admission: 11/24/23 02:19 Primary care physician: Unknown Physician DS: Diagnosis Discharge Diagnosis (1) Influenza A: Status: Acute (2) Hyperosmolar hyperglycemic state (HHS): Status: Acute DS: Summary Hospital Course Hospital Course: History and physical as per admitting provider. Ciara Quiroga is a 48 years old man with past medical history significant for COPD -supplemental oxygen at home as needed, essential hypertension and type 2 diabetes mellitus presents to the emergency department complaining of worsening shortness of breath is associated with productive cough and generalized weakness. He reported subjective fever and headache. He denied chest pain, abdominal pain, nausea, vomiting or diarrhea. He denies tobacco smoking, alcohol abuse or illicit drug use. He did not get the vaccination for influenza this year. In the ED, he was found to have an oxygen saturation 88% on room air. There is no tachycardia or hypotension. Blood workup is remarkable for elevated creatinine, 1.85 however around baseline. There is hyperglycemia. There are no significant electrolyte imbalances. Bicarb is normal. Viral testing is positive for influenza type A. CXR showed no acute cardiopulmonary process. ED tx: Tamiflu 75 mg p.o., NS 1 L bolus. 48-year-old man treated for acute hypoxic respiratory failure secondary to COPD exacerbation and influenza type A. Patient was started on Tamiflu 75 mg daily and then 30 mg twice daily as per creatinine clearance. He was also treated with steroids, scheduled bronchodilators. He is no longer hypoxic, no wheezing noted, ambulating, took a shower. Plan is to discharge home to complete total 5 day course of Tamiflu. During hospitalization patient did develop hyperglycemia, possibly HHS likely secondary to steroids. He was treated in the ICU for short time with IV insulin drip and blood sugar did decrease and is now under better control. He can continue his home medications for his diabetes mellitus. Mental health. Continue home medications Hypertension. Stable blood pressure Chronic kidney disease. At baseline Hyperlipidemia. Continue statin History of chronic diastolic congestive heart failure. Continue home medications Time Attestation Discharge coordination time: Greater than 30 minutes Quality: Safe Use of Opioids Does Pt have an Active Cancer Diagnosis on the Problem List?: No Quality: Stroke Does the patient have a stroke diagnosis?: No Physical Exam Vital Signs: Vital Signs: Last Vital Signs Temp 97.2 F 01/29/24 11:20 Pulse 87 11/27/23 11:20 Resp 18 11/27/23 11:20 BP 131/64 11/27/23 11:20 Pulse Ox 97 11/27/23 11:20 O2 Del Method Room Air 11/27/23 11:20 O2 Flow Rate 3 11/25/23 11:00 BMI result Body Mass Index 24.6 Appearing in no acute distress head is normocephalic atraumatic eyes pupils are PERRLA sclera is anicteric mouth throat mucous membranes are intact and moist neck is supple no lymphadenopathy, no JVD noted lung sounds are clear to auscultation heart regular rate rhythm, clear S1, S2 positive bowel sounds, abdomen is soft, nontender neuro patient is alert x3, no focal deficits DS: Data Data Completed and Pending Completed studies during hospitalization [Text1]: Procedures Assistance with Respiratory Ventilation, Less than 24 Consecutive Hours, Continuous Positive Airway Pressure (04/17/23) Detoxification Services for Substance Abuse Treatment (09/07/22) Excision of Esophagus, Via Natural or Artificial Opening Endoscopic, Diagnostic (09/07/22) Excision of Stomach, Pylorus, Via Natural or Artificial Opening Endoscopic, Diagnostic (09/07/22) Labs on day of discharge: Laboratory Results - last 24 hr 11/26/23 11/26/23 11/27/23 16:32 21:06 03:16 POC Glucose 140 H 152 H 96 11/27/23 11/27/23 07:34 11:35 POC Glucose 112 134 H Discharge Plan Discharge Anticipated Discharge Date/Time: 11/27/23 12:50 Patient Disposition: Home, Self-Care Discharge Diagnosis: Acute hypoxic respiratory failure COPD exacerbation Influenza A Type 2 diabetes mellitus with hyperglycemia Discharge Medications: New oseltamivir 30 mg Capsule 30 mg PO BID Qty: 3 0RF Continued hydralazine 100 mg tablet 100 mg PO TID 30 Days Qty: 90 5RF sucralfate 1 gram Tablet 1 g PO QIDACHS Qty: 120 0RF ferrous sulfate 324 mg (65 mg iron) tablet,delayed release (DR/EC) 1 tab PO DAILY trazodone 50 mg tablet 50 - 100 mg PO BEDTIME escitalopram oxalate 10 mg tablet 10 mg PO DAILY amlodipine 10 mg Tablet 10 mg PO DAILY 30 Days Qty: 30 0RF Protocol: Hold for SBP< HOLD for SBP < : 90 atorvastatin 40 mg tablet 40 mg PO DAILY gabapentin 300 mg capsule 300 mg PO TID Hold Instructions: Resume on 11/07/22. metoprolol succinate 100 mg tablet extended release 24 hr 100 mg PO DAILY omeprazole 40 mg capsule,delayed release(DR/EC) 40 mg PO DAILY@0630 magnesium oxide 400 mg (241.3 mg magnesium) Tablet 400 mg PO BIDPC Qty: 60 0RF insulin lispro 100 unit/mL insulin pen See Rx Instructions .ROUTE .COMPLEX Rx Instructions: UNDER 100 = 0 UNITS 101-150 6 UNITS 151-200 8 UNITS 201-250 10 UNITS 251-300 12 UNITS 301 - 350 14 UNITS 351 - 400 16 UN[address] OVER [address] fluticasone propionate [Flovent HFA] 110 mcg/actuation HFA aerosol inhaler 2 puff inhalation BID insulin glargine [Lantus Solostar U-100 Insulin] 100 unit/mL (3 mL) insulin pen 27 unit subcut BEDTIME furosemide 40 mg tablet 80 mg PO DAILY albuterol sulfate 90 mcg/actuation HFA aerosol inhaler 2 puff inhalation Q4-6H PRN (Reason: bronchospasm) Qty: 8.5 1RF Arnuity Ellipta 100 mcg/actuation blister with device 1 inh INHALATION DAILY furosemide 40 mg tablet 40 mg PO BEDTIME diclofenac sodium 1 % gel 1 g topical QID PRN (Reason: Pain (Scale Score 1-3)) aspirin 81 mg tablet,delayed release (DR/EC) 81 mg PO DAILY Discharge Orders: Discharge Order (Routine); Ordered 11/27/23 Ordered By: Unique Rey Diet: Advance to usual diet Activity on Discharge: As tolerated Stand Alone Forms: Patient Portal Discharge page Care Plan Goals: Complete doses of tamiflu for influenza treatment Health Concerns: Acute hypoxic respiratory failure COPD exacerbation Influenza a Type 2 diabetes mellitus with hyperglycemia Plan of Treatment: Follow-up with primary care provider as needed Take all medications as prescribed Assessment: See discharge summary
--- NOTE | 2023-11-27 13:41 | MHC.CM.PN ---
Addendum entered by Ashley Palencia 11/27/23 15:35: Pt did not go out for the lyft when it arrived. This CM met with pt in discharge lounge and he states his girlfriend is getting out of work and will be picking him up. Original Note: Pt is medically cleared for D/C home self-care. Lyft arranged for pt at 2:40pm today.
== END 2023-11-27 14:30 | disposition home or self-care (01) | DRG 113 ==
LOC: HO.ED 11-24 01:24 → HO.EDOVER 11-24 02:26 → HO.IMC 11-24 15:08 → HO.ICU 11-24 17:40 → HO.IMC 11-25 11:55
PROVIDERS: Internal Medicine; Internal Medicine Pulmonary Disease; Physician Assistant Medical; Registered Nurse Community Health; Admitting Provider Internal Medicine; Emergency Provider Internal Medicine; Visit Provider Nurse Practitioner Acute Care
DX: J10.1 Influenza due to other identified influenza virus with other respiratory manifestations (principal); N17.9 Acute kidney failure, unspecified; J96.11 Chronic respiratory failure with hypoxia; I13.0 Hypertensive heart and chronic kidney disease with heart failure and stage 1 through stage 4 chronic kidney disease, or unspecified chronic kidney disease; E11.22 Type 2 diabetes mellitus with diabetic chronic kidney disease; I50.32 Chronic diastolic (congestive) heart failure; E11.65 Type 2 diabetes mellitus with hyperglycemia; F32.A Depression, unspecified; F41.9 Anxiety disorder, unspecified; N18.32 Chronic kidney disease, stage 3b; J44.1 Chronic obstructive pulmonary disease with (acute) exacerbation; F17.210 Nicotine dependence, cigarettes, uncomplicated; Z71.6 Tobacco abuse counseling; Z20.822 Contact with and (suspected) exposure to COVID-19; Z99.81 Dependence on supplemental oxygen; Z79.4 Long term (current) use of insulin; Z79.51 Long term (current) use of inhaled steroids; Z79.82 Long term (current) use of aspirin; Z79.899 Other long term (current) drug therapy
CPT/HCPCS: 36415; 71045; 80048; 80053; 82803; 82947; 83036; 83690; 83735; 83880; 84100; 84484; 85025; 87502; 87635; 93005; 94640; 99285; J1644; J2920; J2930; J7120

== ENCOUNTER → 2023-11-23 23:44 | Outpatient (BNV) | payer OTHER, SELFPAY | PROVIDERS: Admitting Provider Internal Medicine; Emergency Provider Internal Medicine; Visit Provider Internal Medicine Cardiovascular Disease | DX: R07.9 Chest pain, unspecified (principal) | CPT/HCPCS: 93010 ==

== ENCOUNTER → 2023-11-24 02:19 | Outpatient (BNV) | payer OTHER, SELFPAY | PROVIDERS: Admitting Provider Internal Medicine; Emergency Provider Internal Medicine; Visit Provider Registered Nurse Community Health | DX: J96.01 Acute respiratory failure with hypoxia (principal); E11.00 Type 2 diabetes mellitus with hyperosmolarity without nonketotic hyperglycemic-hyperosmolar coma (NKHHC); J10.1 Influenza due to other identified influenza virus with other respiratory manifestations | CPT/HCPCS: 99232 ==

== ENCOUNTER → 2023-11-24 02:19 | Outpatient (BNV) | payer OTHER, SELFPAY | PROVIDERS: Admitting Provider Internal Medicine; Emergency Provider Internal Medicine; Visit Provider Internal Medicine | DX: J96.01 Acute respiratory failure with hypoxia (principal); J10.1 Influenza due to other identified influenza virus with other respiratory manifestations | CPT/HCPCS: 99223; 99232; 99239; 99499 ==

== ENCOUNTER → 2023-11-24 02:19 | Outpatient (BNV) | payer OTHER, SELFPAY | PROVIDERS: Admitting Provider Internal Medicine; Emergency Provider Internal Medicine; Visit Provider Internal Medicine Pulmonary Disease | DX: J44.9 Chronic obstructive pulmonary disease, unspecified (principal); J96.01 Acute respiratory failure with hypoxia; J10.1 Influenza due to other identified influenza virus with other respiratory manifestations; E11.65 Type 2 diabetes mellitus with hyperglycemia; I50.32 Chronic diastolic (congestive) heart failure | CPT/HCPCS: 99232 ==

== ENCOUNTER 2023-12-20 17:42 | Emergency (ER) | payer OTHER, SELFPAY ==
[2023-12-20 17:51] VITALS: BP 170/84; PULSE 72; O2SAT 94
--- NOTE | 2023-12-20 18:12 | ED.URI ---
HPI - URI/Sore Throat General Chief Complaint: General Medical Stated Complaint: sore throat and malaise Time Seen by Provider: 12/21/23 02:55 Source: patient Mode of arrival: ambulatory Limitations: no limitations History of Present Illness HPI Narrative: Patient comes to the emergency room complaining of sore throat and generalized malaise. All of symptoms started approximately a day ago. Patient denies chest pain or shortness of breath. No nausea vomiting or diarrhea. Related Data Home Medications Medication Instructions Recorded Confirmed escitalopram oxalate 10 mg tablet 10 mg PO DAILY 08/01/22 11/24/23 trazodone 50 mg tablet 50 - 100 mg PO BEDTIME 08/01/22 11/24/23 aspirin 81 mg tablet,delayed 81 mg PO DAILY 10/06/22 11/24/23 release atorvastatin 40 mg tablet 40 mg PO DAILY 10/06/22 11/24/23 gabapentin 300 mg capsule 300 mg PO TID 10/06/22 11/24/23 metoprolol succinate 100 mg 100 mg PO DAILY 10/06/22 11/24/23 tablet,extended release 24 hr omeprazole 40 mg capsule,delayed 40 mg PO DAILY@0630 10/06/22 11/24/23 release ferrous sulfate 324 mg (65 mg 1 tab PO DAILY 12/22/22 11/24/23 iron) tablet,delayed release insulin lispro 100 unit/mL See Rx Instructions .Route .COMPLEX 04/17/23 11/24/23 subcutaneous pen fluticasone propionate 110 2 puff inhalation BID 06/26/23 11/24/23 mcg/actuation HFA aerosol inhaler (Flovent HFA) furosemide 40 mg tablet 80 mg PO DAILY 06/26/23 11/24/23 insulin glargine 100 unit/mL (3 27 unit subcut BEDTIME 06/26/23 11/24/23 mL) subcutaneous pen (Lantus Solostar U-100 Insulin) diclofenac sodium 1 % topical gel 1 g topical QID PRN Pain (Scale 11/24/23 11/24/23 Score 1-3) fluticasone furoate 100 1 inh inhalation DAILY 11/24/23 11/24/23 mcg/actuation blister powder for inhalation (Arnuity Ellipta) furosemide 40 mg tablet 40 mg PO BEDTIME 11/24/23 11/24/23 Previous Rx's Medication Instructions Recorded amlodipine 10 mg tablet 10 mg PO DAILY 30 days #30 tabs 08/07/22 magnesium oxide 400 mg (241.3 mg 400 mg PO BIDPC #60 tabs 08/20/22 magnesium) tablet sucralfate 1 gram tablet 1 g PO QIDACHS #120 tabs 09/10/22 hydralazine 100 mg tablet 100 mg PO TID 30 days #90 tabs 05/09/23 albuterol sulfate 90 mcg/actuation 2 puff inhalation Q4-6H PRN 10/30/23 aerosol inhaler bronchospasm #8.5 grams oseltamivir 30 mg capsule 30 mg PO BID #3 caps 11/27/23 acetaminophen 500 mg capsule 1,000 mg (2 x 500 mg) PO Q6H PRN 12/21/23 fever or pain #20 caps amoxicillin 500 mg-potassium 1 tab PO TID #29 tabs 12/21/23 clavulanate 125 mg tablet (Augmentin) Allergies Allergy/AdvReac Type Severity Reaction Status Date / Time dulaglutide [From [facility]] Allergy Unknown Verified 12/20/23 18:12 metformin [METFORMIN] AdvReac Mild DIARRHEA, Verified 12/20/23 18:12 nausea and vomiting Review of Systems Review of Systems: Constitutional : No Weight loss, No Fever, No Chills, No Night Sweats, complaining of fatigue and generalized malaise ENT/Mouth : No Hearing loss, No Ear Pain, No Nasal Congestion, No Sinus Pain, No Hoarseness, complaining of sore throat, No Rhinorrhea, No Swallowing Difficulty Eyes: No Eye Pain, No Swelling, No Redness, No Foreign Body, No Discharge, No Vision Changes Cardiovascular : No Chest Pain, No SOB, No Dyspnea on Exertion, No Orthopnea, No Edema, No Palpitations Respiratory : No Cough, No Sputum, No Wheezing, No Smoke Exposure, No Dyspnea Gastrointestinal : No Nausea, No Vomiting, No Diarrhea, No Constipation, No abdominal Pain, No Hematochezia, No Melena Genitourinary : no irregular bleeding, No Dysuria, No Urinary Frequency, No Hematuria, No Urinary Incontinence, No Urgency, No Flank Pain, No Urinary Flow Changes, No Hesitancy Musculoskeletal : No joint pain, No Myalgias, No Joint Swelling Skin : No Skin Lesions, No rash Neuro : No Weakness, No Numbness, No Paresthesias, No Loss of Consciousness, No Dizziness, No Headache Psych : No Anxiety/Panic, No Depression, No SI/HI/AH/VH, No Social Issues, Heme/Lymph: No Bruising, No Bleeding,No Lymphadenopathy Endocrine : No Polyuria, No Polydipsia, No Temperature Intolerance [facility] Past Medical History Medical History Chronic heart failure with preserved ejection fraction (HFpEF) Acute respiratory failure with hypoxia Congestive heart failure CKD (chronic kidney disease) stage 1, GFR 90 ml/min or greater Depression COPD exacerbation YARELIS (obstructive sleep apnea) CHF exacerbation Hypoxia KELVIN (acute kidney injury) Acute respiratory failure Uncontrolled hypertension Acute on chronic diastolic (congestive) heart failure Acute on chronic anemia Hyperglycemia due to type 2 diabetes mellitus YARELIS (obstructive sleep apnea) Congestive heart failure Anxiety HLD (hyperlipidemia) Diabetes Hypercholesteremia HTN (hypertension) Asthma PAD (peripheral artery disease) Surgical History S/P angiogram of extremity Family History Family History Father Alzheimer disease CAD (coronary artery disease) Social History Social History Household Members: Significant Other and Children Housing: Apartment Do you presently have visiting nurse or other home services: No Unable to assess alcohol history related to: Unknown Alcohol intake: never Comment: low fall risk Patient Tobacco Use Status: Current everyday Tobacco user Tobacco use type: Cigarette Cigarettes Per Day: 5 Years Smoked: >30 e-Cigarette/Vaping Use: Never Used Second Hand Smoke Exposure: No Substance Use Type: Marijuana Advance Directives: Yes Advance Directives on File: Yes Advance Directives Date on File: 06/21/21 service: No Current occupational status: disabled Physical Exam Vital Signs: Vital Signs: Last Vital Signs Temp 98.4 F 12/20/23 18:13 Pulse 80 12/21/23 03:01 Resp 16 12/20/23 18:13 BP 146/67 H 12/21/23 03:01 Pulse Ox 94 12/20/23 18:13 O2 Del Method Room Air 12/20/23 18:13 BMI result Body Mass Index 24.6 Const: Other: Appearance: Alert. Oriented X3. No acute distress. Eyes: Pupils equal, round and reactive to light. ENT: Erythematous oropharynx, Patient has bilateral exudates uvula midline Neck: Normal inspection. Neck supple. No lymph nodes noted. No crepitus CVS: Normal heart rate and rhythm. Pulses normal. Normal S1 and S2 Respiratory: No respiratory distress. Breath sounds normal. No Wheezing. No rales Abdomen: Soft and nontender. No rigidity. No distention. Skin: Skin warm and dry. Normal skin color. Normal skin turgor. Extremities: No lower extremity edema. No Lacerations. No Rash Neuro: Oriented X 3. No motor deficit. No sensory deficit. Moving all extremities. No slurred speech. CN 2 through 12 grossly intact Psych: calm, cooperative, normal affect Course Course Course Narrative: RME: 48 year-old M w/ PMHx HTN, PAD, CKD, CHF, COPD presenting to the ED c/o sore throat, malaise, lightheadedness, decreased PO intake, SOB & CP x last night. EKG, Labs, Orthos, viral testing, rapid strep ordered Full HPI, ROS and PE to be performed by primary ED provider. Medical Decision Making Medical Decision Making [facility] Narrative: My interpretation of labs, white blood cell count 12.8, chemistry within normal limits, troponin negative, patient tested positive for both COVID and strep -patient was provided with oral antibiotics, for symptomatic treatment viscous lidocaine and Decadron -I considered giving the patient a prescription for Paxlovid, however patient takes several medications which would interact with Paxlovid. -patient was ambulated, oxygen saturation did not go below 91%. Patient does not have any shortness of breath or chest pain. No dizziness. Differential Diagnosis Differential Diagnoses: The differential diagnosis associated with the presentation includes (COVID, influenza, viral syndrome) Lab Data [facility] Lab Attestation statement: I reviewed the patient's lab results. 12/20/23 19:27 12/20/23 19:27 Labs: Lab Results 12/20/23 12/20/23 Range/Units 19:23 19:27 WBC 12.8 H (4.8-10.8) X10*3/uL RBC 4.65 (4.60-5.80) X10*6/uL Hgb 12.4 L (14.0-18.0) g/dl Hct 38.0 L (42.0-52.0) % MCV 81.7 (80.0-98.0) fL MCH 26.7 L (27.0-33.0) pg MCHC 32.6 (31.0-36.0) g/dl RDW 14.6 (11.0-16.0) % Plt Count 263 D (160-400) X10*3/uL MPV 10.7 (9.4-12.4) fL Immature Gran % (Auto) 0.5 H (0.0-0.4) % Neut % (Auto) 75.6 H (45-73) % Lymph % (Auto) 14.5 L (20-40) % [place] % (Auto) 8.4 (2-11) % Eos % (Auto) 0.8 (0-4) % Baso % (Auto) 0.2 (0-2) % Lymph # (Auto) 1.9 (1.2-4.9) X10*3/uL [place] # (Auto) 1.1 (0.1-1.2) X10*3/uL Eos # (Auto) 0.1 (0.0-0.4) X10*3/uL Baso # (Auto) 0.0 (0.0-0.2) X10*3/uL Abs Immat Gran (auto) 0.06 H (0.00-0.03) X10*3/uL Absolute Neuts (auto) 9.7 H (2.0-8.3) x10*3/uL Absolute Nucleated RBC 0.000 (0.0-0.012) X10*3/uL Nucleated RBC % (auto) 0.0 (0.0-0.2) /100WBC Sodium 145 (135-145) mmol/L Potassium 4.9 (3.3-5.1) mmol/L Chloride 107 (96-108) mmol/L Carbon Dioxide 26 (22-29) mmol/L Anion Gap 17 (12-20) BUN 44 H (9-16) mg/dL Creatinine 1.96 H (0.5-1.4) mg/dL Estim Creat Clear Calc 39.6 Estimated GFR 37 Random Glucose 145 H (60-115) mg/dL Calcium 9.9 D (8.4-10.2) mg/dL Magnesium 2.3 (1.6-2.6) mg/dL Total Bilirubin 0.3 (0.0-1.0) mg/dL Direct Bilirubin < 0.1 (0.0-0.5) mg/dL AST 21 (5-37) U/L ALT 34 (0-40) U/L Alkaline Phosphatase 150 H (39-117) U/L Troponin I High Sens 5.7 D (<3.5-35.0) ng/L Total Protein 7.6 (6.5-8.0) g/dL Albumin 4.1 (3.5-5.0) g/dL Influenza Type A (PCR) NEGATIVE (Negative) Influenza Type B (PCR) NEGATIVE (Negative) RSV RNA Qual (PCR) NEGATIVE (Negative) SARS-CoV-2 RNA (RT-PCR) POSITIVE A (Negative) S. pyogenes GrpA MAYELIN Positive A (Negative) Discharge Plan Discharge Clinical Impression: COVID, Acute streptococcal pharyngitis Patient Disposition: Home, Self-Care Instructions: Strep Throat (ED), COVID-19 (Coronavirus Disease 2019) (ED) Additional Instructions: Please follow-up with your primary care physician tomorrow. If you have any worsening or new symptoms, please return to the emergency room or call 911 Prescriptions: New amoxicillin-pot clavulanate [Augmentin] 500-125 mg tablet 1 tab PO TID Qty: 29 0RF acetaminophen 500 mg capsule 1,000 mg PO Q6H PRN (Reason: fever or pain) Qty: 20 0RF No Action hydralazine 100 mg tablet 100 mg PO TID 30 Days Qty: 90 5RF sucralfate 1 gram Tablet 1 g PO QIDACHS Qty: 120 0RF ferrous sulfate 324 mg (65 mg iron) tablet,delayed release (DR/EC) 1 tab PO DAILY trazodone 50 mg tablet 50 - 100 mg PO BEDTIME escitalopram oxalate 10 mg tablet 10 mg PO DAILY amlodipine 10 mg Tablet 10 mg PO DAILY 30 Days Qty: 30 0RF Protocol: Hold for SBP< HOLD for SBP < : 90 atorvastatin 40 mg tablet 40 mg PO DAILY gabapentin 300 mg capsule 300 mg PO TID Hold Instructions: Resume on 11/07/22. metoprolol succinate 100 mg tablet extended release 24 hr 100 mg PO DAILY omeprazole 40 mg capsule,delayed release(DR/EC) 40 mg PO DAILY@0630 magnesium oxide 400 mg (241.3 mg magnesium) Tablet 400 mg PO BIDPC Qty: 60 0RF insulin lispro 100 unit/mL insulin pen See Rx Instructions .ROUTE .COMPLEX Rx Instructions: UNDER 100 = 0 UNITS 101-150 6 UNITS 151-200 8 UNITS 201-250 10 UNITS 251-300 12 UNITS 301 - 350 14 UNITS 351 - 400 16 UNITS OVER [address] fluticasone propionate [Flovent HFA] 110 mcg/actuation HFA aerosol inhaler 2 puff inhalation BID insulin glargine [Lantus Solostar U-100 Insulin] 100 unit/mL (3 mL) insulin pen 27 unit subcut BEDTIME furosemide 40 mg tablet 80 mg PO DAILY albuterol sulfate 90 mcg/actuation HFA aerosol inhaler 2 puff inhalation Q4-6H PRN (Reason: bronchospasm) Qty: 8.5 1RF Arnuity Ellipta 100 mcg/actuation blister with device 1 inh INHALATION DAILY furosemide 40 mg tablet 40 mg PO BEDTIME diclofenac sodium 1 % gel 1 g topical QID PRN (Reason: Pain (Scale Score 1-3)) oseltamivir 30 mg Capsule 30 mg PO BID Qty: 3 0RF aspirin 81 mg tablet,delayed release (DR/EC) 81 mg PO DAILY
[2023-12-20 18:13] VITALS: BP 150/72; PULSE 76; RESP 16; TEMP 36.9; O2SAT 94; BMI 24.6
--- NOTE | 2023-12-20 18:13 | ECG_ITS ---
Test Reason : dizziness Blood Pressure : / mmHG Vent. Rate : 076 BPM Atrial Rate : 076 BPM P-R Int : 156 ms QRS Dur : 082 ms QT Int : 382 ms P-R-T Axes : 040 048 059 degrees QTc Int : 429 ms Normal sinus rhythm Minimal voltage criteria for LVH, may be normal variant ( Sokolow-Ahmadi ) Borderline ECG When compared with ECG of 23-NOV-2023 23:44, No significant change was found Referred By: Irlanda Garg Electronically Signed By:INOCENCIO BERGMAN MD
--- NOTE | 2023-12-20 19:31 | MHC.EDTECH ---
PATIENT EKG TAKEN AND WAS READ BY PROVIDER ,BLOOD DRAWN ,RSV/COVID AND STREP SWAB COLLECTED AND SENT TO LAB.
[2023-12-20 19:32] LABS: MANUAL DIFF FLAG NO
[2023-12-20 19:34] LABS: Basophils Percent Auto 0.2 % (0-2); Eosinophils Absolute Auto 0.1 X10*3/uL (0.0-0.4); Eosinophils Percent Auto 0.8 % (0-4); Hemoglobin 12.4 g/dl (14.0-18.0); Imm Gran Abs Auto 0.06 X10*3/uL (0.00-0.03); Imm Gran Pct Auto 0.5 % (0.0-0.4); Lymphocytes Absolute Auto 1.9 X10*3/uL (1.2-4.9); Lymphocytes Percent Auto 14.5 % (20-40); Mean Corpuscular HGB Conc 32.6 g/dl (31.0-36.0); Mean Corpuscular Hemoglobin 26.7 pg (27.0-33.0); Mean Corpuscular Volume 81.7 fL (80.0-98.0); Mean Platelet Volume 10.7 fL (9.4-12.4); Monocytes Absolute Auto 1.1 X10*3/uL (0.1-1.2); Monocytes Percent Auto 8.4 % (2-11); Neutrophils Absolute Auto 9.7 x10*3/uL (2.0-8.3); Neutrophils Percent Auto 75.6 % (45-73); Platelet Count 263 X10*3/uL (160-400); Red Blood Count 4.65 X10*6/uL (4.60-5.80); Red Cell Distribution Width 14.6 % (11.0-16.0); White Blood Count 12.8 X10*3/uL (4.8-10.8)
[2023-12-20 19:42] LABS: IDNOW Serial# 08D9AD1C; Strep A Nucleic Acid Positive (Negative)
[2023-12-20 19:56] LABS: Alanine Aminotransferase 34 U/L (0-40); Albumin Level 4.1 g/dL (3.5-5.0); Alkaline Phosphatase 150 U/L (39-117); Anion Gap 17 (12-20); Aspartate Amino Transferase 21 U/L (5-37); Bilirubin Direct < 0.1 mg/dL (0.0-0.5); Bilirubin Total 0.3 mg/dL (0.0-1.0); Blood Urea Nitrogen 44 mg/dL (9-16); Calcium 9.9 mg/dL (8.4-10.2); Carbon Dioxide 26 mmol/L (22-29); Chloride 107 mmol/L (96-108); Creatinine Clr Calc Pharmacy 39.6; Estimated Glomerular Filt Rate 37; Glucose Random 145 mg/dL (60-115); Magnesium 2.3 mg/dL (1.6-2.6); Potassium 4.9 mmol/L (3.3-5.1); Sodium 145 mmol/L (135-145); Total Protein 7.6 g/dL (6.5-8.0); Troponin-I High Sensitivity 5.7 ng/L (<3.5-35.0)
[2023-12-20 20:12] LABS: Influenza A PCR NEGATIVE (Negative); Influenza B PCR NEGATIVE (Negative); Resp Syncy Virus RNA Qual PCR NEGATIVE (Negative); SARS COV2 PCR INHOUSE POSITIVE (Negative)
[2023-12-21 03:00] VITALS: BP 136/70; BP 147/60; PULSE 76; PULSE 78
[2023-12-21 03:01] VITALS: BP 146/67; PULSE 80
--- NOTE | 2023-12-21 03:01 | PC.NURSE ---
Addendum entered by Danette Lewis 12/21/23 03:35: dr. kulkarni aware of oxygen sat. Original Note: this rn did ambulation trial with pt, pt sating 90% on room air. pt states he is on 3L nasal cannula as needed at home.
[2023-12-21 03:13] VITALS: BP 142/67; PULSE 81; RESP 18; TEMP 36.6; O2SAT 93
[2023-12-21] MEDS: Amoxicillin/Potassium Clav 500 MG TABLET PO (03:30)
[2023-12-21] MEDS: Lidocaine HCl Viscous 2 % 15 ML SOLUTION MUCOUS MEM (03:30)
[2023-12-21] MEDS: dexAMETHasone sod phosphate 4 MG/ML VIAL 6 MG IVPUSH (03:31)
--- NOTE | 2023-12-21 03:34 | PC.NURSE ---
pt medicated per dec, tolerated well with water. pt has ride home from girlfriend.
== END 2023-12-21 03:36 | disposition home or self-care (01) ==
PROVIDERS: Physician Assistant; Emergency Provider Emergency Medicine
DX: U07.1 COVID-19 (principal); J02.0 Streptococcal pharyngitis; R42 Dizziness and giddiness; E11.9 Type 2 diabetes mellitus without complications; I10 Essential (primary) hypertension; E78.00 Pure hypercholesterolemia, unspecified; Z79.82 Long term (current) use of aspirin; Z79.02 Long term (current) use of antithrombotics/antiplatelets; Z79.899 Other long term (current) drug therapy; Z79.4 Long term (current) use of insulin
CPT/HCPCS: 0241U; 80048; 80076; 83735; 84484; 85025; 87651; 93005; 99283; 99284; J1100

== ENCOUNTER → 2023-12-20 18:13 | Outpatient (BNV) | payer OTHER, SELFPAY | PROVIDERS: Emergency Provider Emergency Medicine; Visit Provider Internal Medicine Cardiovascular Disease | DX: R06.02 Shortness of breath (principal) | CPT/HCPCS: 93010 ==

== ENCOUNTER 2023-12-21 19:28 | Inpatient (IN) | payer OTHER, SELFPAY ==
--- NOTE | ~2023-12-21 | XR_ITS ---
EXAMINATION: XR CHEST CLINICAL INFORMATION: Shortness of breath. COMPARISON: 11/23/2023. TECHNIQUE: Frontal view of the chest was obtained. FINDINGS: The lung volumes are low and the patient is mildly rotated. The cardiomediastinal silhouette is stable. There is mild vascular congestion and perihilar increased markings. There is no focal lung consolidation or pleural effusion. The bony structures and soft tissues are unremarkable. XR/XR chest 1V IMPRESSION: Pulmonary vascular congestion and perihilar increased markings. Consider interstitial edema. No focal lung consolidation or pleural effusion.
[2023-12-21 19:37] VITALS: BP 165/79; PULSE 83; RESP 18; TEMP 36.6; O2SAT 97; BMI 24.1
--- NOTE | 2023-12-21 19:38 | ED.GENADULT ---
HPI - General Adult General Chief complaint: Recheck/Abnormal Lab/Rx Stated complaint: sob,elevated blood sugars, covid+ Time Seen by Provider: 12/21/23 23:48 Source: patient Mode of arrival: ambulatory Limitations: no limitations History of Present Illness HPI narrative: Patient is type 1 diabetic with history of influenza last month was seen here yesterday for nasal congestion cough diagnosed as COVID and strep throat patient is on insulin pump comes back here as blood sugars elevated and not feeling good since seen yesterday patient blood sugar on arrival was 423 today he took 30 units of bolus insulin multiple times has insulin pump with a basal rate of 0.75 units/hour no vomiting no fever patient took Augmentin earlier today Related Data Home Medications Medication Instructions Recorded Confirmed escitalopram oxalate 10 mg tablet 10 mg PO DAILY 08/01/22 11/24/23 trazodone 50 mg tablet 50 - 100 mg PO BEDTIME 08/01/22 11/24/23 aspirin 81 mg tablet,delayed 81 mg PO DAILY 10/06/22 11/24/23 release atorvastatin 40 mg tablet 40 mg PO DAILY 10/06/22 11/24/23 gabapentin 300 mg capsule 300 mg PO TID 10/06/22 11/24/23 metoprolol succinate 100 mg 100 mg PO DAILY 10/06/22 11/24/23 tablet,extended release 24 hr omeprazole 40 mg capsule,delayed 40 mg PO DAILY@0630 10/06/22 11/24/23 release ferrous sulfate 324 mg (65 mg 1 tab PO DAILY 12/22/22 11/24/23 iron) tablet,delayed release insulin lispro 100 unit/mL See Rx Instructions .Route .COMPLEX 04/17/23 11/24/23 subcutaneous pen fluticasone propionate 110 2 puff inhalation BID 06/26/23 11/24/23 mcg/actuation HFA aerosol inhaler (Flovent HFA) furosemide 40 mg tablet 80 mg PO DAILY 06/26/23 11/24/23 insulin glargine 100 unit/mL (3 27 unit subcut BEDTIME 06/26/23 11/24/23 mL) subcutaneous pen (Lantus Solostar U-100 Insulin) diclofenac sodium 1 % topical gel 1 g topical QID PRN Pain (Scale 11/24/23 11/24/23 Score 1-3) fluticasone furoate 100 1 inh inhalation DAILY 11/24/23 11/24/23 mcg/actuation blister powder for inhalation (Arnuity Ellipta) furosemide 40 mg tablet 40 mg PO BEDTIME 11/24/23 11/24/23 Previous Rx's Medication Instructions Recorded amlodipine 10 mg tablet 10 mg PO DAILY 30 days #30 tabs 08/07/22 magnesium oxide 400 mg (241.3 mg 400 mg PO BIDPC #60 tabs 08/20/22 magnesium) tablet sucralfate 1 gram tablet 1 g PO QIDACHS #120 tabs 09/10/22 hydralazine 100 mg tablet 100 mg PO TID 30 days #90 tabs 05/09/23 albuterol sulfate 90 mcg/actuation 2 puff inhalation Q4-6H PRN 10/30/23 aerosol inhaler bronchospasm #8.5 grams oseltamivir 30 mg capsule 30 mg PO BID #3 caps 11/27/23 acetaminophen 500 mg capsule 1,000 mg (2 x 500 mg) PO Q6H PRN 12/21/23 fever or pain #20 caps amoxicillin 500 mg-potassium 1 tab PO TID #29 tabs 12/21/23 clavulanate 125 mg tablet (Augmentin) Allergies Allergy/AdvReac Type Severity Reaction Status Date / Time dulaglutide [From [facility]] Allergy Unknown Verified 12/21/23 19:37 metformin [METFORMIN] AdvReac Mild DIARRHEA, Verified 12/21/23 19:37 nausea and vomiting Review of Systems Review of Systems: Yes all other systems are reviewed and are negative PMFSH Past Medical History Medical History Chronic heart failure with preserved ejection fraction (HFpEF) Acute respiratory failure with hypoxia Congestive heart failure CKD (chronic kidney disease) stage 1, GFR 90 ml/min or greater Depression COPD exacerbation YARELIS (obstructive sleep apnea) CHF exacerbation Hypoxia KELVIN (acute kidney injury) Acute respiratory failure Uncontrolled hypertension Acute on chronic diastolic (congestive) heart failure Acute on chronic anemia Hyperglycemia due to type 2 diabetes mellitus YARELIS (obstructive sleep apnea) Congestive heart failure Anxiety HLD (hyperlipidemia) Diabetes Hypercholesteremia HTN (hypertension) Asthma PAD (peripheral artery disease) Surgical History S/P angiogram of extremity Family History Family History Father Alzheimer disease CAD (coronary artery disease) Social History Social History Household Members: Significant Other and Children Housing: Apartment Do you presently have visiting nurse or other home services: No Unable to assess alcohol history related to: Unknown Alcohol intake: never Comment: low fall risk Patient Tobacco Use Status: Never used Tobacco Tobacco use type: Cigarette Cigarettes Per Day: 5 Years Smoked: >30 Smoked in Last 30 Days: Yes e-Cigarette/Vaping Use: Never Used Second Hand Smoke Exposure: No Use of substances other than those prescribed or required for medical reasons: No Substance Use Type: Marijuana Advance Directives: Yes Advance Directives on File: Yes Advance Directives Date on File: 06/21/21 Nutrition Risks: No Nutritional Risk service: No Current occupational status: disabled Physical Exam ED Vital Signs: Vital Signs - 24 hr 12/21/23 19:37 12/21/23 23:38 12/22/23 03:45 Temperature 97.8 F 97.5 F Pulse Rate 83 83 Respiratory Rate 18 18 Blood Pressure 165/79 H 165/84 H Pulse Oximetry 97 98 77 L Oxygen Delivery Method Room Air Room Air Room Air Oxygen Flow Rate 12/22/23 03:46 12/22/23 04:00 Temperature 97.7 F 97.6 F Pulse Rate 85 79 Respiratory Rate 20 20 Blood Pressure 157/87 H 150/80 H Pulse Oximetry 92 93 Oxygen Delivery Method Oxymask Oxymask Oxygen Flow Rate 9 6 BMI result Body Mass Index 24.1 Appearance: Alert. Oriented X3. No acute distress. Eyes: No pallor or icterus ENT: Pharynx erythematous no exudate Oral Mucosa moist Neck: Normal inspection. Neck supple. CVS: Normal heart rate and rhythm. Pulses normal. Respiratory: No respiratory distress. Equal air entry bilateral, no wheezing/rales/rhonchi Abdomen: Soft and nontender. Bowel sounds are present, Skin: Skin warm and dry. Normal skin color. Normal skin turgor. Extremities: No lower extremity edema. No calf tenderness Neuro: Oriented X 3. Course Course Course Narrative: This is a rapid medical exam. Deferred additional HPI,ROS, PE to primary provider. 48 yo male with history of IDDM seen here last night and diagnosed with strep/COVID returns today for elevated blood sugars. Reading high on machine. BS 300s in triage WIll obtain labs VSS Medications Administered Generic Name Dose Route Start Last Admin Trade Name Gisell PRN Reason Stop Dose Admin Acetaminophen 975 mg 12/22/23 05:13 12/22/23 06:18 Acetaminophen 325 Mg Tablet PO 975 mg Q6H PRN Administration Pain, Mild (Pain Scale 1-3) Furosemide 80 mg 12/22/23 05:25 12/22/23 06:18 Furosemide 40 Mg Tablet PO 80 mg DAILY DIONISIO Administration Protocol Discontinued Medications Generic Name Dose Route Start Last Admin Trade Name Gisell PRN Reason Stop Dose Admin Albuterol/Ipratropium 3 ml 12/22/23 05:12 12/22/23 05:39 Albuterol/Iprat 2.5/0.5mg 3 Ml Ampul.Neb INHALE 12/22/23 05:13 3 ml ONCE STA Administration Dexamethasone Sodium Phosphate 6 mg 12/22/23 04:04 12/22/23 04:18 Dexamethasone Sod Phosphate 4 Mg/Ml Vial IVPUSH 12/22/23 04:05 6 mg ONCE ONE Administration Sodium Chloride 1,000 mls @ 999 mls/hr 12/22/23 00:01 12/22/23 01:20 Ns IV 12/22/23 01:01 Infused .Q1H1M ONE Infusion Ceftriaxone Sodium 1 gm/ 50 mls @ 100 mls/hr 12/22/23 00:01 12/22/23 00:48 Sodium Chloride IV 12/22/23 00:30 Infused ONCE ONE Infusion Sodium Chloride 1,000 mls @ 999 mls/hr 12/22/23 01:48 12/22/23 03:02 Ns IV 12/22/23 02:48 Infused .Q1H1M ONE Infusion Insulin Glargine 30 unit 12/22/23 05:20 12/22/23 05:54 Insulin Glargine,Hum.Rec.Anlog 100 Unit/Ml 10 Ml Vial SUBCUT 12/22/23 05:21 Not Given DAILY ONE Insulin Glargine 30 unit 12/22/23 05:30 12/22/23 06:18 Insulin Glargine,Hum.Rec.Anlog 100 Unit/Ml 10 Ml Vial SUBCUT 30 unit DAILY DIONISIO Administration Insulin Human Lispro 10 unit 12/22/23 01:10 12/22/23 01:36 Insulin Lispro 100 Unit/Ml 3 Ml Vial SUBCUT 12/22/23 01:11 10 unit ONCE ONE Administration Medical Decision Making Medical Decision Making [facility] Narrative: Patient with COVID and strep infection with elevated blood sugar will give a dose of Rocephin IV and you IV hydration patient is nonketotic no signs of ketoacidosis -after patient received a 2 L of normal saline, I was informed by the patient's nurse that the patient's oxygen saturation dropped to 82% on room air. Patient was started on nasal cannula, saturating 87%. Patient was switched to an OxyMask. Patient breathing more comfortably on the OxyMask. -chest X shows shows possible CHF exacerbation. -earlier today, Patient was covered with ceftriaxone. Patient was given ceftriaxone because he did not take his medications at home for strep. -patient has history of CHF, patient may have a bit of vascular congestion. At this time, BiPAP not need. -I discussed the patient with Dr. Turpin from the Medicine team, patient being admitted - I have personally provided 45 critical care time. Time includes review of lab data, radiology results, discussion with consultants, and monitoring for potential decompensation. Intervention performed as documented. Differential Diagnosis Differential Diagnoses: The differential diagnosis associated with the presentation includes Hyperglycemia/ketoacidosis-/dehydration//strep and COVID Admission/Observation Consideration of admission/observation: Escalation of care including admission/observation considered Lab Data [facility] Lab Attestation statement: I reviewed the patient's lab results. 12/22/23 05:29 12/22/23 05:29 Labs: Lab Results 12/21/23 12/21/23 12/21/23 Range/Units 19:41 19:54 20:44 WBC 10.9 H (4.8-10.8) X10*3/uL RBC 4.54 L (4.60-5.80) X10*6/uL Hgb 12.1 L (14.0-18.0) g/dl Hct 36.6 L (42.0-52.0) % MCV 80.6 (80.0-98.0) fL MCH 26.7 L (27.0-33.0) pg MCHC 33.1 (31.0-36.0) g/dl RDW 14.5 (11.0-16.0) % Plt Count 258 (160-400) X10*3/uL MPV 11.4 (9.4-12.4) fL Immature Gran % (Auto) 0.6 H (0.0-0.4) % Neut % (Auto) 87.3 H (45-73) % Lymph % (Auto) 8.7 L (20-40) % Bowie % (Auto) 2.9 (2-11) % Eos % (Auto) 0.4 (0-4) % Baso % (Auto) 0.1 (0-2) % Lymph # (Auto) 1.0 L (1.2-4.9) X10*3/uL Bowie # (Auto) 0.3 (0.1-1.2) X10*3/uL Eos # (Auto) 0.0 (0.0-0.4) X10*3/uL Baso # (Auto) 0.0 (0.0-0.2) X10*3/uL Abs Immat Gran (auto) 0.07 H (0.00-0.03) X10*3/uL Absolute Neuts (auto) 9.5 H (2.0-8.3) x10*3/uL Absolute Nucleated RBC 0.000 (0.0-0.012) X10*3/uL Nucleated RBC % (auto) 0.0 (0.0-0.2) /100WBC VBG pH (7.32-7.43) VBG pCO2 mmHg VBG pO2 mmHg VBG HCO3 (22-26) mmol/L VBG O2 Saturation % VBG Base Excess mmol/L Sodium 139 (135-145) mmol/L Potassium 5.1 (3.3-5.1) mmol/L Chloride 106 (96-108) mmol/L Carbon Dioxide 21 L (22-29) mmol/L Anion Gap 17 (12-20) BUN 41 H (9-16) mg/dL Creatinine 1.55 H (0.5-1.4) mg/dL Estim Creat Clear Calc 50.1 Estimated GFR 48 POC Glucose 384 H* (60-115) mg/dL Random Glucose 423 H* (60-115) mg/dL Lactic Acid (0.5-2.0) mmol/L Calcium 9.0 D (8.4-10.2) mg/dL Total Bilirubin 0.3 (0.0-1.0) mg/dL Direct Bilirubin 0.1 (0.0-0.5) mg/dL AST 15 (5-37) U/L ALT 29 (0-40) U/L Alkaline Phosphatase 139 H (39-117) U/L B-Natriuretic Peptide (<100) pg/mL Total Protein 7.4 (6.5-8.0) g/dL Albumin 3.8 (3.5-5.0) g/dL Beta-Hydroxybutyrate 0.13 (0.02-0.27) mmol/L 12/21/23 12/21/23 12/22/23 Range/Units 20:46 23:36 01:13 WBC (4.8-10.8) X10*3/uL RBC (4.60-5.80) X10*6/uL Hgb (14.0-18.0) g/dl Hct (42.0-52.0) % MCV (80.0-98.0) fL MCH (27.0-33.0) pg MCHC (31.0-36.0) g/dl RDW (11.0-16.0) % Plt Count (160-400) X10*3/uL MPV (9.4-12.4) fL Immature Gran % (Auto) (0.0-0.4) % Neut % (Auto) (45-73) % Lymph % (Auto) (20-40) % Bowie % (Auto) (2-11) % Eos % (Auto) (0-4) % Baso % (Auto) (0-2) % Lymph # (Auto) (1.2-4.9) X10*3/uL Bowie # (Auto) (0.1-1.2) X10*3/uL Eos # (Auto) (0.0-0.4) X10*3/uL Baso # (Auto) (0.0-0.2) X10*3/uL Abs Immat Gran (auto) (0.00-0.03) X10*3/uL Absolute Neuts (auto) (2.0-8.3) x10*3/uL Absolute Nucleated RBC (0.0-0.012) X10*3/uL Nucleated RBC % (auto) (0.0-0.2) /100WBC VBG pH 7.36 (7.32-7.43) VBG pCO2 37 mmHg VBG pO2 35 mmHg VBG HCO3 21 L (22-26) mmol/L VBG O2 Saturation 55.0 % VBG Base Excess -3.3 mmol/L Sodium (135-145) mmol/L Potassium (3.3-5.1) mmol/L Chloride (96-108) mmol/L Carbon Dioxide (22-29) mmol/L Anion Gap (12-20) BUN (9-16) mg/dL Creatinine (0.5-1.4) mg/dL Estim Creat Clear Calc Estimated GFR POC Glucose 430 H* 349 H (60-115) mg/dL Random Glucose (60-115) mg/dL Lactic Acid (0.5-2.0) mmol/L Calcium (8.4-10.2) mg/dL Total Bilirubin (0.0-1.0) mg/dL Direct Bilirubin (0.0-0.5) mg/dL AST (5-37) U/L ALT (0-40) U/L Alkaline Phosphatase (39-117) U/L B-Natriuretic Peptide (<100) pg/mL Total Protein (6.5-8.0) g/dL Albumin (3.5-5.0) g/dL Beta-Hydroxybutyrate (0.02-0.27) mmol/L 12/22/23 12/22/23 12/22/23 Range/Units 02:09 03:39 04:13 WBC (4.8-10.8) X10*3/uL RBC (4.60-5.80) X10*6/uL Hgb (14.0-18.0) g/dl Hct (42.0-52.0) % MCV (80.0-98.0) fL MCH (27.0-33.0) pg MCHC (31.0-36.0) g/dl RDW (11.0-16.0) % Plt Count (160-400) X10*3/uL MPV (9.4-12.4) fL Immature Gran % (Auto) (0.0-0.4) % Neut % (Auto) (45-73) % Lymph % (Auto) (20-40) % Bowie % (Auto) (2-11) % Eos % (Auto) (0-4) % Baso % (Auto) (0-2) % Lymph # (Auto) (1.2-4.9) X10*3/uL Bowie # (Auto) (0.1-1.2) X10*3/uL Eos # (Auto) (0.0-0.4) X10*3/uL Baso # (Auto) (0.0-0.2) X10*3/uL Abs Immat Gran (auto) (0.00-0.03) X10*3/uL Absolute Neuts (auto) (2.0-8.3) x10*3/uL Absolute Nucleated RBC (0.0-0.012) X10*3/uL Nucleated RBC % (auto) (0.0-0.2) /100WBC VBG pH (7.32-7.43) VBG pCO2 mmHg VBG pO2 mmHg VBG HCO3 (22-26) mmol/L VBG O2 Saturation % VBG Base Excess mmol/L Sodium (135-145) mmol/L Potassium (3.3-5.1) mmol/L Chloride (96-108) mmol/L Carbon Dioxide (22-29) mmol/L Anion Gap (12-20) BUN (9-16) mg/dL Creatinine (0.5-1.4) mg/dL Estim Creat Clear Calc Estimated GFR POC Glucose 300 H 241 H (60-115) mg/dL Random Glucose (60-115) mg/dL Lactic Acid 1.6 (0.5-2.0) mmol/L Calcium (8.4-10.2) mg/dL Total Bilirubin (0.0-1.0) mg/dL Direct Bilirubin (0.0-0.5) mg/dL AST (5-37) U/L ALT (0-40) U/L Alkaline Phosphatase (39-117) U/L B-Natriuretic Peptide 376 H (<100) pg/mL Total Protein (6.5-8.0) g/dL Albumin (3.5-5.0) g/dL Beta-Hydroxybutyrate (0.02-0.27) mmol/L 02/23/24 Range/Units 04:19 WBC (4.8-10.8) X10*3/uL RBC (4.60-5.80) X10*6/uL Hgb (14.0-18.0) g/dl Hct (42.0-52.0) % MCV (80.0-98.0) fL MCH (27.0-33.0) pg MCHC (31.0-36.0) g/dl RDW (11.0-16.0) % Plt Count (160-400) X10*3/uL MPV (9.4-12.4) fL Immature Gran % (Auto) (0.0-0.4) % Neut % (Auto) (45-73) % Lymph % (Auto) (20-40) % Bowie % (Auto) (2-11) % Eos % (Auto) (0-4) % Baso % (Auto) (0-2) % Lymph # (Auto) (1.2-4.9) X10*3/uL Bowie # (Auto) (0.1-1.2) X10*3/uL Eos # (Auto) (0.0-0.4) X10*3/uL Baso # (Auto) (0.0-0.2) X10*3/uL Abs Immat Gran (auto) (0.00-0.03) X10*3/uL Absolute Neuts (auto) (2.0-8.3) x10*3/uL Absolute Nucleated RBC (0.0-0.012) X10*3/uL Nucleated RBC % (auto) (0.0-0.2) /100WBC VBG pH 7.42 (7.32-7.43) VBG pCO2 29 mmHg VBG pO2 80 mmHg VBG HCO3 19 L (22-26) mmol/L VBG O2 Saturation 97.0 % VBG Base Excess -3.6 mmol/L Sodium (135-145) mmol/L Potassium (3.3-5.1) mmol/L Chloride (96-108) mmol/L Carbon Dioxide (22-29) mmol/L Anion Gap (12-20) BUN (9-16) mg/dL Creatinine (0.5-1.4) mg/dL Estim Creat Clear Calc Estimated GFR POC Glucose (60-115) mg/dL Random Glucose (60-115) mg/dL Lactic Acid (0.5-2.0) mmol/L Calcium (8.4-10.2) mg/dL Total Bilirubin (0.0-1.0) mg/dL Direct Bilirubin (0.0-0.5) mg/dL AST (5-37) U/L ALT (0-40) U/L Alkaline Phosphatase (39-117) U/L B-Natriuretic Peptide (<100) pg/mL Total Protein (6.5-8.0) g/dL Albumin (3.5-5.0) g/dL Beta-Hydroxybutyrate (0.02-0.27) mmol/L Radiology Impression Discussion of test interpretation with radiology: I have reviewed the radiologist's reading. Radiologist Impression: The lung volumes are low and the patient is mildly rotated. The cardiomediastinal silhouette is stable. There is mild vascular congestion and perihilar increased markings. There is no focal lung consolidation or pleural effusion. The bony structures and soft tissues are unremarkable. XR/XR chest 1V IMPRESSION: Pulmonary vascular congestion and perihilar increased markings. Consider interstitial edema. No focal lung consolidation or pleural effusion. Critical Care Time Critical Care Time Critical Care Time: Yes Total Critical Care Time: 45 Attestation: The patient was critically ill with a high probability of imminent or life threatening deterioration. I spent greater than50 ???minutes of discontinuous time evaluating the patient,delivering critical care at the bedside, discussing and evaluating pertinent data with consultants. Critical care time does not include time spent performing separately billable procedures or teaching. Total time spent performing critical care was 45???minutes. Discharge Plan Discharge Clinical Impression: COVID, Hyperglycemia, Strep throat, Acute exacerbation of CHF (congestive heart failure) Patient Disposition: Admitted As Inpatient
[2023-12-21 19:48] LABS: Glucose, Whole Blood 384 mg/dL (60-115)
[2023-12-21 19:58] LABS: MANUAL DIFF FLAG NO
[2023-12-21 19:59] LABS: Basophils Percent Auto 0.1 % (0-2); Eosinophils Percent Auto 0.4 % (0-4); Hematocrit 36.6 % (42.0-52.0); Hemoglobin 12.1 g/dl (14.0-18.0); Imm Gran Abs Auto 0.07 X10*3/uL (0.00-0.03); Imm Gran Pct Auto 0.6 % (0.0-0.4); Lymphocytes Percent Auto 8.7 % (20-40); Mean Corpuscular HGB Conc 33.1 g/dl (31.0-36.0); Mean Corpuscular Hemoglobin 26.7 pg (27.0-33.0); Mean Corpuscular Volume 80.6 fL (80.0-98.0); Mean Platelet Volume 11.4 fL (9.4-12.4); Monocytes Absolute Auto 0.3 X10*3/uL (0.1-1.2); Monocytes Percent Auto 2.9 % (2-11); Neutrophils Absolute Auto 9.5 x10*3/uL (2.0-8.3); Neutrophils Percent Auto 87.3 % (45-73); Platelet Count 258 X10*3/uL (160-400); Red Blood Count 4.54 X10*6/uL (4.60-5.80); Red Cell Distribution Width 14.5 % (11.0-16.0); White Blood Count 10.9 X10*3/uL (4.8-10.8)
[2023-12-21 20:29] LABS: Alanine Aminotransferase 29 U/L (0-40); Albumin Level 3.8 g/dL (3.5-5.0); Alkaline Phosphatase 139 U/L (39-117); Anion Gap 17 (12-20); Aspartate Amino Transferase 15 U/L (5-37); Bilirubin Direct 0.1 mg/dL (0.0-0.5); Bilirubin Total 0.3 mg/dL (0.0-1.0); Blood Urea Nitrogen 41 mg/dL (9-16); Carbon Dioxide 21 mmol/L (22-29); Chloride 106 mmol/L (96-108); Creatinine Clr Calc Pharmacy 50.1; Estimated Glomerular Filt Rate 48; Glucose Random 423 mg/dL (60-115); Potassium 5.1 mmol/L (3.3-5.1); Sodium 139 mmol/L (135-145); Total Protein 7.4 g/dL (6.5-8.0)
[2023-12-21 20:52] LABS: Venous Blood Gas Refer to POC result
[2023-12-21 20:52] LABS: VBG Base Excess -3.3 mmol/L; VBG HCO3 21 mmol/L (22-26); VBG pCO2 37 mmHg; VBG pH 7.36 (7.32-7.43); VBG pO2 35 mmHg
[2023-12-21 21:02] LABS: Beta-Hydroxybutyrate 0.13 mmol/L (0.02-0.27)
[2023-12-21 23:38] VITALS: BP 165/84; PULSE 83; RESP 18; TEMP 36.4; O2SAT 98
[2023-12-21 23:43] LABS: Glucose, Whole Blood 430 mg/dL (60-115)
[2023-12-22] VITALS (16 sets, daily range): BP systolic 120–157; BP diastolic 58–87; PULSE 79–101; RESP 15–20; TEMP 36.4–36.9; O2SAT 77–98; BMI 24.8
--- NOTE | 2023-12-22 | PC.NURSE ---
late entry. pt reports being seen here at [facility] yesterday and being diagnosed with covid and flu, pt reports today he is unable to control his blood sugars. pt reports having pump and it alerted to be over 400. pt denies nausea and vomiting at this time. pt alert and oriented, respirations even and unlabored. iv established, 20G in left ac.
[2023-12-22] MEDS: cefTRIAXone sodium 1 GM in 0.9 % Sodium Chloride 50 ML IV (00:18)
[2023-12-22] MEDS: 0.9 % Sodium Chloride 1,000 ML 999 ML IV ×2 (00:19→02:23)
[2023-12-22 01:17] LABS: Glucose, Whole Blood 349 mg/dL (60-115)
[2023-12-22] MEDS: Insulin Lispro 100 UNIT/ML 3 ML VIAL 10 UNIT SUBCUT (01:36)
--- NOTE | 2023-12-22 01:38 | PC.NURSE ---
Addendum entered by Danette Lewis 12/22/23 03:54: upon antibiotic administration, per provider , blood cultures not needed at this time. Original Note: pt medicated per dec.
[2023-12-22 02:14] LABS: Glucose, Whole Blood 300 mg/dL (60-115)
--- NOTE | 2023-12-22 03:48 | PC.NURSE ---
upon assessing pt for discharge, pt noted to be sating 77% on room air, provider called to bedside, pt placed on oxymax 7L sating now 92-95%.
--- NOTE | 2023-12-22 03:54 | PC.NURSE ---
blood cultures drawn despite previous dose of antibiotics being administered, aware, orders as follow.
[2023-12-22] MEDS: dexAMETHasone sod phosphate 4 MG/ML VIAL 6 MG IVPUSH ×2 (04:18→08:42)
[2023-12-22 04:25] LABS: Venous Blood Gas Refer to POC result
[2023-12-22 04:27] LABS: VBG Base Excess -3.6 mmol/L; VBG HCO3 19 mmol/L (22-26); VBG pCO2 29 mmHg; VBG pH 7.42 (7.32-7.43); VBG pO2 80 mmHg
[2023-12-22 04:34] LABS: Lactic Acid 1.6 mmol/L (0.5-2.0)
[2023-12-22 04:43] LABS: B Type Natriuretic Peptide 376 pg/mL (<100)
[2023-12-22 05:37] LABS: Hematocrit 32.7 % (42.0-52.0); Hemoglobin 10.8 g/dl (14.0-18.0); Mean Corpuscular Hemoglobin 26.8 pg (27.0-33.0); Mean Corpuscular Volume 81.1 fL (80.0-98.0); Mean Platelet Volume 11.2 fL (9.4-12.4); Platelet Count 249 X10*3/uL (160-400); Red Blood Count 4.03 X10*6/uL (4.60-5.80); Red Cell Distribution Width 14.6 % (11.0-16.0)
[2023-12-22] MEDS: Albuterol/Iprat 2.5/0.5MG 3 ML AMPUL.NEB INHALE ×5 (05:39→22:53)
[2023-12-22 06:06] LABS: Alanine Aminotransferase 25 U/L (0-40); Albumin Level 3.4 g/dL (3.5-5.0); Alkaline Phosphatase 111 U/L (39-117); Anion Gap 14 (12-20); Aspartate Amino Transferase 16 U/L (5-37); Bilirubin Total 0.2 mg/dL (0.0-1.0); Blood Urea Nitrogen 33 mg/dL (9-16); Calcium 8.1 mg/dL (8.4-10.2); Carbon Dioxide 19 mmol/L (22-29); Chloride 114 mmol/L (96-108); Creatinine Clr Calc Pharmacy 61.6; Estimated Glomerular Filt Rate > 60; Glucose Random 200 mg/dL (60-115); Potassium 4.5 mmol/L (3.3-5.1); Sodium 142 mmol/L (135-145); Total Protein 6.4 g/dL (6.5-8.0)
[2023-12-22 06:10] LABS: Glucose, Whole Blood 241 mg/dL (60-115)
[2023-12-22 06:10] LABS: Glucose, Whole Blood 202 mg/dL (60-115)
--- NOTE | 2023-12-22 06:14 | P.HPHOSP_ITS ---
History of Present Illness Date of Service: 12/22/23 Attending physician on admission: Samantha Chowdhury Chief Complaint: Elevated blood glucose Ciara Quiroga is a 48 years old man with past medical history significant for COPD on home oxygen, essential hypertension and type 2 diabetes mellitus on insulin presents to the emergency department complaining of persistent elevated blood glucose. He has been having mild shortness on breath and cough. He did not report fever, dizziness or headache. He denied any acute gastrointestinal genitourinary symptoms. He admitted he has been smoking. Denies alcohol abuse. In the emergency department, he developed significant hypoxia, 77% and now requiring 4 liters/minutes via OxyMask. There is no hypotension of tachycardia. Blood workup was remarkable for significant hyperglycemia 430 on presentation to the ED. Most recent blood glucose is 202 after receiving treatment with insulin. There is mild acidosis with normal anion gap. BNP is elevated, 376. Renal function is normal. Hemoglobin is 10.8 (baseline 11.5-12.5). Viral testing is positive for strep pyogenes and COVID-19. CHF showed finding consistent with interstitial edema. ED tx: NS 2 L bolus, ceftriaxone 1 g IV, dexamethasone 6 mg IV. Review of Systems 2 Review of Systems: All 12 systems were reviewed and normal except as noted in HPI. FORMERLY [facility], [facility] Medical History Chronic heart failure with preserved ejection fraction (HFpEF) Acute respiratory failure with hypoxia Congestive heart failure CKD (chronic kidney disease) stage 1, GFR 90 ml/min or greater Depression COPD exacerbation YARELIS (obstructive sleep apnea) CHF exacerbation Hypoxia KELVIN (acute kidney injury) Acute respiratory failure Uncontrolled hypertension Acute on chronic diastolic (congestive) heart failure Acute on chronic anemia Hyperglycemia due to type 2 diabetes mellitus YARELIS (obstructive sleep apnea) Congestive heart failure Anxiety HLD (hyperlipidemia) Diabetes Hypercholesteremia HTN (hypertension) Asthma PAD (peripheral artery disease) Family History Father Alzheimer disease CAD (coronary artery disease) Surgical History S/P angiogram of extremity Social History Household Members: Significant Other and Children Housing: Apartment Do you presently have visiting nurse or other home services: No Unable to assess alcohol history related to: Unknown Alcohol intake: never Comment: low fall risk Patient Tobacco Use Status: Never used Tobacco Tobacco use type: Cigarette Cigarettes Per Day: 5 Years Smoked: >30 Smoked in Last 30 Days: Yes e-Cigarette/Vaping Use: Never Used Second Hand Smoke Exposure: No Use of substances other than those prescribed or required for medical reasons: No Substance Use Type: Marijuana Advance Directives: Yes Advance Directives on File: Yes Advance Directives Date on File: 06/21/21 Nutrition Risks: No Nutritional Risk service: No Current occupational status: disabled Meds Allergies Allergy/AdvReac Type Severity Reaction Status Date / Time dulaglutide [From [facility]ul[facility]] Allergy Unknown Verified 12/21/23 19:37 metformin [METFORMIN] AdvReac Mild DIARRHEA, Verified 12/21/23 19:37 nausea and vomiting Active Medications: Current Medications Acetaminophen (Acetaminophen 325 Mg Tablet) 975 mg PO Q6H PRN PRN Reason: Pain, Mild (Pain Scale 1-3) Albuterol/Ipratropium (Albuterol/Iprat 2.5/0.5mg 3 Ml Ampul.Neb) 3 ml INHALE RQ4H WHILE AWAKE [facility] Amlodipine Besylate (Amlodipine Besylate 10 Mg Tablet) 10 mg PO DAILY [facility]; Protocol Atorvastatin Calcium (Atorvastatin Calcium 40 Mg Tablet) 40 mg PO DAILY [facility] Dexamethasone Sodium Phosphate (Dexamethasone Sod Phosphate 4 Mg/Ml Vial) 6 mg IVPUSH DAILY ONE Stop: 12/22/23 09:01 Dextrose (Dextrose 50 % 25 Gm/50 Ml Syringe) 25 gm IVPUSH Q15M PRN; Protocol PRN Reason: per Hypoglycemia Standing Ord. Escitalopram Oxalate (Escitalopram Oxalate 10 Mg Tablet) 10 mg PO DAILY [facility] Furosemide (Furosemide 40 Mg Tablet) 80 mg PO DAILY [facility]; Protocol Furosemide (Furosemide 40 Mg Tablet) 40 mg PO DAILY@1700 [facility]; Protocol Glucose (Glucose Gel 15 Gm Gel..Gram.) 15 gm PO Q15M PRN; Protocol PRN Reason: Per Hypoglycemia Standing Ord. Heparin Sodium (Porcine) (Heparin Sodium,Porcine 5,000 Unit/Ml Vial) 5,000 unit SUBCUT Q8H [facility] Hydralazine HCl (Hydralazine Hcl 50 Mg Tablet) 100 mg PO TID [facility]; Protocol Insulin Glargine (Insulin Glargine,Hum.Rec.Anlog 100 Unit/Ml 10 Ml Vial) 30 unit SUBCUT DAILY [facility] Insulin Human Lispro (Insulin Lispro 100 Unit/Ml 3 Ml Vial) 0 unit SUBCUT QIDACHS [facility]; Protocol Sodium Chloride (0.9 % Sodium Chloride Flush 3 Ml Syringe) 3 ml IVFLUSH QSHIFT DIONISIO Sodium Chloride (0.9 % Sodium Chloride Flush 3 Ml Syringe) 3 ml IVFLUSH QSHIFT [facility] Trazodone HCl (Trazodone Hcl 50 Mg Tablet) 50 mg PO BEDTIME [facility] Home Medications Medication Instructions Recorded Confirmed Last Taken Type escitalopram oxalate 10 mg tablet 10 mg PO DAILY 08/01/22 11/24/23 06/24/23 History trazodone 50 mg tablet 50 - 100 mg PO BEDTIME 08/01/22 11/24/23 06/24/23 History aspirin 81 mg tablet,delayed 81 mg PO DAILY 10/06/22 11/24/23 06/24/23 History release atorvastatin 40 mg tablet 40 mg PO DAILY 10/06/22 11/24/23 06/24/23 History gabapentin 300 mg capsule 300 mg PO TID 10/06/22 11/24/23 12/21/22 History metoprolol succinate 100 mg 100 mg PO DAILY 10/06/22 11/24/23 06/24/23 History tablet,extended release 24 hr omeprazole 40 mg capsule,delayed 40 mg PO DAILY@0630 10/06/22 11/24/23 06/24/23 History release ferrous sulfate 324 mg (65 mg 1 tab PO DAILY 12/22/22 11/24/23 06/24/23 History iron) tablet,delayed release insulin lispro 100 unit/mL See Rx Instructions .Route .COMPLEX 04/17/23 11/24/23 06/24/23 History subcutaneous pen fluticasone propionate 110 2 puff inhalation BID 06/26/23 11/24/23 06/24/23 History mcg/actuation HFA aerosol inhaler (Flovent HFA) furosemide 40 mg tablet 80 mg PO DAILY 06/26/23 11/24/23 06/24/23 History insulin glargine 100 unit/mL (3 27 unit subcut BEDTIME 06/26/23 11/24/23 06/24/23 History mL) subcutaneous pen (Lantus Solostar U-100 Insulin) diclofenac sodium 1 % topical gel 1 g topical QID PRN Pain (Scale 11/24/23 11/24/23 Unknown History Score 1-3) fluticasone furoate 100 1 inh inhalation DAILY 11/24/23 11/24/23 Unknown History mcg/actuation blister powder for inhalation (Arnuity Ellipta) furosemide 40 mg tablet 40 mg PO BEDTIME 11/24/23 11/24/23 Unknown History Physical Exam 2 Vital Signs and Narrative: Vital Signs: Last Vital Signs Temp 97.5 F 12/22/23 06:12 Pulse 87 12/22/23 06:12 Resp 20 12/22/23 06:12 BP 146/80 H 12/22/23 06:12 Pulse Ox 98 12/22/23 06:12 O2 Del Method Oxymask 12/22/23 06:12 O2 Flow Rate 4 12/22/23 06:12 BMI result Body Mass Index 24.1 Results Labs 12/22/23 05:29 12/22/23 05:29 Labs: Laboratory Results - last 24 hr 12/21/23 12/21/23 12/21/23 19:41 19:54 20:44 MCV 80.6 MCH 26.7 L MCHC 33.1 RDW 14.5 Plt Count 258 MPV 11.4 Immature Gran % (Auto) 0.6 H Neut % (Auto) 87.3 H Lymph % (Auto) 8.7 L [place] % (Auto) 2.9 Eos % (Auto) 0.4 Baso % (Auto) 0.1 Lymph # (Auto) 1.0 L [place] # (Auto) 0.3 Eos # (Auto) 0.0 Baso # (Auto) 0.0 Abs Immat Gran (auto) 0.07 H Absolute Neuts (auto) 9.5 H Absolute Nucleated RBC 0.000 Nucleated RBC % (auto) 0.0 VBG pH VBG pCO2 VBG pO2 VBG HCO3 VBG O2 Saturation VBG Base Excess Anion Gap 17 Estim Creat Clear Calc 50.1 Estimated GFR 48 POC Glucose 384 H* Random Glucose 423 H* Lactic Acid Calcium 9.0 D Total Bilirubin 0.3 Direct Bilirubin 0.1 AST 15 ALT 29 Alkaline Phosphatase 139 H B-Natriuretic Peptide Total Protein 7.4 Albumin 3.8 Beta-Hydroxybutyrate 0.13 12/21/23 12/21/23 12/22/23 20:46 23:36 01:13 MCV MCH MCHC RDW Plt Count MPV Immature Gran % (Auto) Neut % (Auto) Lymph % (Auto) [place] % (Auto) Eos % (Auto) Baso % (Auto) Lymph # (Auto) [place] # (Auto) Eos # (Auto) Baso # (Auto) Abs Immat Gran (auto) Absolute Neuts (auto) Absolute Nucleated RBC Nucleated RBC % (auto) VBG pH 7.36 VBG pCO2 37 VBG pO2 35 VBG HCO3 21 L VBG O2 Saturation 55.0 VBG Base Excess -3.3 Anion Gap Estim Creat Clear Calc Estimated GFR POC Glucose 430 H* 349 H Random Glucose Lactic Acid Calcium Total Bilirubin Direct Bilirubin AST ALT Alkaline Phosphatase B-Natriuretic Peptide Total Protein Albumin Beta-Hydroxybutyrate 12/22/23 12/22/23 12/22/23 02:09 03:39 04:13 MCV MCH MCHC RDW Plt Count MPV Immature Gran % (Auto) Neut % (Auto) Lymph % (Auto) [place] % (Auto) Eos % (Auto) Baso % (Auto) Lymph # (Auto) [place] # (Auto) Eos # (Auto) Baso # (Auto) Abs Immat Gran (auto) Absolute Neuts (auto) Absolute Nucleated RBC Nucleated RBC % (auto) VBG pH VBG pCO2 VBG pO2 VBG HCO3 VBG O2 Saturation VBG Base Excess Anion Gap Estim Creat Clear Calc Estimated GFR POC Glucose 300 H 241 H Random Glucose Lactic Acid 1.6 Calcium Total Bilirubin Direct Bilirubin AST ALT Alkaline Phosphatase B-Natriuretic Peptide 376 H Total Protein Albumin Beta-Hydroxybutyrate 12/22/23 12/22/23 12/22/23 04:19 05:29 06:07 MCV 81.1 MCH 26.8 L MCHC 33.0 RDW 14.6 Plt Count 249 MPV 11.2 Immature Gran % (Auto) Neut % (Auto) Lymph % (Auto) [place] % (Auto) Eos % (Auto) Baso % (Auto) Lymph # (Auto) [place] # (Auto) Eos # (Auto) Baso # (Auto) Abs Immat Gran (auto) Absolute Neuts (auto) Absolute Nucleated RBC 0.000 Nucleated RBC % (auto) 0.0 VBG pH 7.42 VBG pCO2 29 VBG pO2 80 VBG HCO3 19 L VBG O2 Saturation 97.0 VBG Base Excess -3.6 Anion Gap 14 Estim Creat Clear Calc 61.6 Estimated GFR > 60 POC Glucose 202 H Random Glucose 200 H Lactic Acid Calcium 8.1 L D Total Bilirubin 0.2 Direct Bilirubin AST 16 ALT 25 Alkaline Phosphatase 111 B-Natriuretic Peptide Total Protein 6.4 L Albumin 3.4 L Beta-Hydroxybutyrate Imaging Radiologist's Impressions: Impressions Chest X-Ray 12/22/23 03:56 IMPRESSION: Pulmonary vascular congestion and perihilar increased markings. Consider interstitial edema. No focal lung consolidation or pleural effusion. Assessment and Plan (1) Strep throat: Status: Acute (2) COVID: Status: Acute (3) Pulmonary edema: Qualifiers: Chronicity: acute Qualified Code(s): J81.0 - Acute pulmonary edema Status: Acute (4) Hypertension: Qualifiers: Hypertension type: primary hypertension Qualified Code(s): I10 - Essential (primary) hypertension Status: Acute Plan Ciara Quiroga is a 48 years old man admitted with: * Acute hypoxic respiratory failure secondary acute exacerbation of chronic obstructive pulmonary disease due to COVID-19 infection associated acute on chronic diastolic congestive heart failure likely secondary to fluid overload. Admit to hospitalist service. Telemetry. Pulse oximetry. Continue supplemental oxygen to keep oxygen saturation >90%. Bronchodilator therapy. IV steroids: Decadron and diuresis. * Strep throat. Cephalexin 500 mg p.o. twice daily 10 days. * Anemia, lower than prior (hemodilution?). Continue to monitor H&H. Protonix IV. * Hyperchloremic metabolic acidosis likely secondary to IV fluids. * Hyperlipidemia. Continue statin. * Type 2 diabetes mellitus. Blood glucose monitoring before meals at bedtime. Diabetic diet. Insulin sliding scale and Lantus. * Depression and anxiety. Continue escitalopram. * Essential hypertension. Continue amlodipine and hydralazine. * Chronic kidney disease. Continue to monitor renal function. DVT prophylaxis: Heparin subcut Code status: Full Patient will need hospitalization for at least 2 midnights for acute hypoxic respiratory failure treatment with supplemental oxygen, diuresis and close monitoring of vital signs. Patient will also evaluation by specialist. Quality Stroke Does the patient have a stroke diagnosis?: No VTE Prior VTE?: No VTE Risk Level:: Medical - moderate - high VTE Device Contraindication: Treatment Not Indicated VTE Drug Contraindication: N/A - Med Ordered
[2023-12-22] MEDS: Insulin Glargine,Hum.rec.anlog 100 UNIT/ML 10 ML VIAL 30 UNIT SUBCUT (06:18)
[2023-12-22] MEDS: Acetaminophen 325 MG TABLET 975 MG PO (06:18)
--- NOTE | 2023-12-22 06:21 | PC.NURSE ---
pt medicated per mar, tolerated well with water. vss.
[2023-12-22 07:14] LABS: Glucose, Whole Blood 232 mg/dL (60-115)
[2023-12-22] MEDS: Insulin Lispro 100 UNIT/ML 3 ML VIAL SUBCUT ×7 (08:37→20:05)
[2023-12-22] MEDS: amLODIPine Besylate 10 MG TABLET PO (08:38)
[2023-12-22] MEDS: Atorvastatin Calcium 40 MG TABLET PO (08:38)
[2023-12-22] MEDS: hydrALAZINE HCl 50 MG TABLET 100 MG PO ×3 (08:38→20:06)
[2023-12-22] MEDS: Escitalopram Oxalate 10 MG TABLET PO (08:38)
[2023-12-22] MEDS: Heparin Sodium,Porcine 5,000 UNIT/ML VIAL 5000 UNIT SUBCUT ×2 (08:39→18:11)
[2023-12-22] MEDS: 0.9 % Sodium Chloride Flush 3 ML SYRINGE IVFLUSH ×3 (08:43→22:19)
[2023-12-22] MEDS: Pantoprazole Sodium 40 MG/10 ML VIAL IVPUSH ×2 (08:44→20:07)
--- NOTE | 2023-12-22 09:13 | PHA.MEDREC ---
Pharmacy Consult ? Medication Reconciliation Pharmacy has completed the medication reconciliation. Spoke to patient at bedside, sure of most medications except scheduled inhalers. He sees Dr. Machado (sort supervisor [phone]) and I called the office to clarify that he is supposed to be using Advair. Patient is on insulin pump and did state that he uses Lantus as a backup when he really needs it.
[2023-12-22 11:49] LABS: Glucose, Whole Blood 407 mg/dL (60-115)
--- NOTE | 2023-12-22 16:15 | PM.EVENT ---
Event Note Date of Service: 12/22/23 Event Note: seen and examined this morning, admitted this am for COVID 19, strep pharyngitis Acute hypoxic respiratory failure secondary due to COVID-19 infection o2 sat as low as 77% in ED Continue supplemental oxygen to keep oxygen saturation >90% seen by ID, started on remdecivir continue decadron acute on chronic diastolic congestive heart failure bnp higher then previous continue lasix monitor Is and Os Strep throat. Cephalexin 500 mg p.o. twice daily 10 days. acute on chronic normocytic Anemia hemodilution? no evidence of active bleeding follow CBC Protonix IV for now Hyperchloremic metabolic acidosis likely secondary to IV fluids. follow bmp Hyperlipidemia. Continue statin. Type 2 diabetes mellitus with hyperglycemia typically uses a insulin pump - does not have any cartridges with him and no one is able to bring them from home he transitions to Lantus when unable to use pump. hyperglycemia noted on last admission due to steroids Continue Lantus 30 Units (higher then baseline) blood sugars trending up due to steroids/acute infection - will schedule premeal insulin and follow insulin needs continue SSI, follow POCs, will up titrate lantus as needed Mood Continue escitalopram. Essential hypertension. Continue amlodipine, metoprolol and hydralazine. Chronic kidney disease. renal function appears to be at baseline YARELIS continue CPAP Time Spent With Patient Time: Total time managing care of this patient today ____ minutes.
--- NOTE | 2023-12-22 17:15 | P.CNID_ITS ---
History of Present Illness Data of Consult Service Date: 12/22/23 Requesting physician: Veronica Sinclair Primary Care Provider: Unknown Physician HPI Reason for consult: COVID recent onset He presents with cough,sore throat and shortness of breath. He has symptoms for two days. He is positive for strep throat and COVID. He was just hospitalized last month for influenza A. He has hypoxia and CHF concern as well. Review of Systems 2 Review of Systems: Yes all other systems are reviewed and are negative PMFSH Past Medical History Medical History Chronic heart failure with preserved ejection fraction (HFpEF) Acute respiratory failure with hypoxia Congestive heart failure CKD (chronic kidney disease) stage 1, GFR 90 ml/min or greater Depression COPD exacerbation YARELIS (obstructive sleep apnea) CHF exacerbation Hypoxia KELVIN (acute kidney injury) Acute respiratory failure Uncontrolled hypertension Acute on chronic diastolic (congestive) heart failure Acute on chronic anemia Hyperglycemia due to type 2 diabetes mellitus YARELIS (obstructive sleep apnea) Congestive heart failure Anxiety HLD (hyperlipidemia) Diabetes Hypercholesteremia HTN (hypertension) Asthma PAD (peripheral artery disease) Family History Family History Father Alzheimer disease CAD (coronary artery disease) Family history: reviewed and not pertinent Surgical History Surgical History S/P angiogram of extremity Social History Social History Household Members: Significant Other and Children Housing: Apartment Do you presently have visiting nurse or other home services: No Unable to assess alcohol history related to: Unknown Alcohol intake: never Comment: low fall risk Patient Tobacco Use Status: Never used Tobacco Tobacco use type: Cigarette Cigarettes Per Day: 5 Years Smoked: >30 Smoked in Last 30 Days: Yes e-Cigarette/Vaping Use: Never Used Second Hand Smoke Exposure: No Use of substances other than those prescribed or required for medical reasons: No Substance Use Type: Marijuana Advance Directives: Yes Advance Directives on File: Yes Advance Directives Date on File: 06/21/21 Nutrition Risks: No Nutritional Risk service: No Current occupational status: disabled Meds Allergies Allergy/AdvReac Type Severity Reaction Status Date / Time [facility] Allergy Unknown Verified 12/21/23 19:37 metformin [METFORMIN] AdvReac Mild DIARRHEA, Verified 12/21/23 19:37 nausea and vomiting Active Medications: Current Medications Acetaminophen (Acetaminophen 325 Mg Tablet) 975 mg PO Q6H PRN PRN Reason: Pain, Mild (Pain Scale 1-3) Last Admin: 12/22/23 06:18 Dose: 975 mg Albuterol Sulfate (Albuterol Sulfate 90 Mcg 8 Gm Inhaler) 2 puff INHALE Q4H PRN PRN Reason: bronchospasm Albuterol/Ipratropium (Albuterol/Iprat 2.5/0.5mg 3 Ml Ampul.Neb) 3 ml INHALE RQ4H WHILE AWAKE [facility] Last Admin: 12/22/23 15:00 Dose: 3 ml Amlodipine Besylate (Amlodipine Besylate 10 Mg Tablet) 10 mg PO DAILY [facility]; Protocol Last Admin: 12/22/23 08:38 Dose: 10 mg Aspirin (Aspirin Enteric Coated 81 Mg Tablet.Dr) 81 mg PO DAILY [facility] Atorvastatin Calcium (Atorvastatin Calcium 40 Mg Tablet) 40 mg PO DAILY [facility] Last Admin: 12/22/23 08:38 Dose: 40 mg Cephalexin HCl (Cephalexin 500 Mg Capsule) 500 mg PO Q12H [facility] Stop: 01/01/24 20:59 Dexamethasone (Dexamethasone 6 Mg Tablet) 6 mg PO DAILY [facility] Dextrose (Dextrose 50 % 25 Gm/50 Ml Syringe) 25 gm IVPUSH Q15M PRN; Protocol PRN Reason: per Hypoglycemia Standing Ord. Escitalopram Oxalate (Escitalopram Oxalate 10 Mg Tablet) 10 mg PO DAILY [facility] Last Admin: 12/22/23 08:38 Dose: 10 mg Fluticasone/Vilanterol (Fluticasone/Vilanterol 100/25 Blst.W.Dev) 1 puff INHALE RDAILY [facility] Furosemide (Furosemide 40 Mg Tablet) 80 mg PO DAILY [facility]; Protocol Last Admin: 12/22/23 06:18 Dose: 80 mg Furosemide (Furosemide 40 Mg Tablet) 40 mg PO DAILY@1700 [facility]; Protocol Glucose (Glucose Gel 15 Gm Gel..Gram.) 15 gm PO Q15M PRN; Protocol PRN Reason: Per Hypoglycemia Standing Ord. Heparin Sodium (Porcine) (Heparin Sodium,Porcine 5,000 Unit/Ml Vial) 5,000 unit SUBCUT Q8H [facility] Last Admin: 12/22/23 08:39 Dose: 5,000 unit Hydralazine HCl (Hydralazine Hcl 50 Mg Tablet) 100 mg PO TID [facility]; Protocol Last Admin: 12/22/23 14:19 Dose: 100 mg Remdesivir 200 mg/ Sodium (Chloride) 210 mls @ 105 mls/hr IV ONCE ONE Stop: 12/22/23 17:44 Remdesivir 100 mg/ Sodium (Chloride) 230 mls @ 115 mls/hr IV Q24H [facility] Stop: 12/26/23 19:59 Insulin Glargine (Insulin Glargine,Hum.Rec.Anlog 100 Unit/Ml 10 Ml Vial) 30 unit SUBCUT DAILY [facility] Insulin Human Lispro (Insulin Lispro 100 Unit/Ml 3 Ml Vial) 0 unit SUBCUT QIDAS [facility]; Protocol Last Admin: 12/22/23 14:19 Dose: 12 unit Insulin Human Lispro (Insulin Lispro 100 Unit/Ml 3 Ml Vial) 5 unit SUBCUT QIDACHS [facility] Magnesium Oxide (Magnesium Oxide 400 Mg Tablet) [facility] Metoprolol Succinate (Metoprolol Succinate Er 100 Mg Tab.Er.24h) 100 mg PO DAILY [facility]; Protocol Pantoprazole Sodium (Pantoprazole Sodium 40 Mg/10 Ml Vial) 40 mg IVPUSH BID [facility] Last Admin: 12/22/23 08:44 Dose: 40 mg Sodium Chloride (0.9 % Sodium Chloride Flush 3 Ml Syringe) 3 ml IVFLUSH [facility] Last Admin: 12/22/23 08:43 Dose: 3 ml Sodium Chloride (0.9 % Sodium Chloride Flush 3 Ml Syringe) 3 ml IVFLUSH [facility] Last Admin: 12/22/23 08:44 Dose: Not Given Sucralfate (Sucralfate 1 Gm Tablet) 1 gm PO QIDACHS [facility] Trazodone HCl (Trazodone Hcl 50 Mg Tablet) 50 mg PO BEDTIME [facility] Home Medications Medication Instructions Recorded Confirmed Last Taken Type escitalopram oxalate 10 mg tablet 10 mg PO DAILY 08/01/22 12/22/23 12/21/23 History trazodone 50 mg tablet 100 mg PO BEDTIME 08/01/22 12/22/23 12/21/23 History aspirin 81 mg tablet,delayed 81 mg PO DAILY 10/06/22 12/22/23 12/21/23 History release atorvastatin 40 mg tablet 40 mg PO DAILY 10/06/22 12/22/23 12/21/23 History gabapentin 300 mg capsule 300 mg PO TID 10/06/22 12/22/23 12/21/23 History metoprolol succinate 100 mg 100 mg PO DAILY 10/06/22 12/22/23 12/21/23 History tablet,extended release 24 hr omeprazole 40 mg capsule,delayed 40 mg PO DAILY@0630 10/06/22 12/22/23 12/21/23 History release insulin lispro 100 unit/mL See Rx Instructions .Route .COMPLEX 04/17/23 12/22/23 12/21/23 History subcutaneous pen furosemide 40 mg tablet 80 mg PO DAILY 06/26/23 12/22/23 12/21/23 History insulin glargine 100 unit/mL (3 27 unit subcut BEDTIME PRN 06/26/23 12/22/23 12/21/23 History mL) subcutaneous pen (Lantus Hyperglycemia Solostar U-100 Insulin) furosemide 40 mg tablet 40 mg PO BEDTIME 11/24/23 12/22/23 12/21/23 History fluticasone 250 mcg-salmeterol 50 1 ea inhalation BID 12/22/23 12/22/23 12/21/23 History mcg/dose blistr powdr for inhalation (Advair Diskus) multivitamin 1 tab PO DAILY 12/22/23 12/22/23 12/21/23 History Physical Exam 2 Vital Signs: Vital Signs: Last Vital Signs Temp 98.4 F 12/22/23 14:16 Pulse 91 12/22/23 15:01 Resp 15 12/22/23 15:01 BP 120/58 L 12/22/23 14:16 Pulse Ox 94 12/22/23 14:16 O2 Del Method Oxymask 12/22/23 14:16 O2 Flow Rate 4 12/22/23 14:16 BMI result Body Mass Index 24.1 Const: General: cooperative HEENT: Head: Yes normal to inspection Face and sinus: Yes normal facial exam Mouth: Normal oral and palatal mucosa present Teeth and gingiva: d entition normal Eyes: General: appearance normal, both eyes and all related structures P upils: Equal, round and reactive pupils present Resp: Effort & Inspection: abnormal respiratory pattern Cardio: Rate: regular rate Rhythm: regular rhythm GI: Palpation (GI): Soft to palpation and nontender : General: Yes no CVA tenderness Back/Spine/Pelvis: Back: no CVA tenderness Skin: General skin exam: no rashes or lesions noted Neuro: General: moves all extremities Cranial nerves: Yes Equal, round and reactive pupils present Extrem: General: Yes normal to inspection Psych: Appearance: grossly normal Results Labs 12/22/23 05:29 12/22/23 05:29 Labs: Short CBC 12/21/23 12/22/23 Range/Units 19:54 05:29 WBC 10.9 H 12.0 H (4.8-10.8) X10*3/uL Hgb 12.1 L 10.8 L (14.0-18.0) g/dl Hct 36.6 L 32.7 L (42.0-52.0) % Plt Count 258 249 (160-400) X10*3/uL BMP 12/21/23 12/22/23 19:54 05:29 Sodium 139 142 Potassium 5.1 4.5 Chloride 106 114 H Carbon Dioxide 21 L 19 L BUN 41 H 33 H Creatinine 1.55 H 1.26 Calcium 9.0 D 8.1 L D Liver Function 12/21/23 12/22/23 Range/Units 19:54 05:29 Total Bilirubin 0.3 0.2 (0.0-1.0) mg/dL Direct Bilirubin 0.1 (0.0-0.5) mg/dL AST 15 16 (5-37) U/L ALT 29 25 (0-40) U/L Alkaline Phosphatase 139 H 111 (39-117) U/L Albumin 3.8 3.4 L (3.5-5.0) g/dL Assessment and Plan (1) Pulmonary edema: Qualifiers: Chronicity: acute Qualified Code(s): J81.0 - Acute pulmonary edema Status: Acute (2) Acute exacerbation of CHF (congestive heart failure): Status: Acute (3) Strep throat: Status: Acute (4) COVID: Status: Acute Plan He has COVID recent onset and hypoxia. He has DM He also has strep throat Would continue Augmentin seven days strep. Remdesivir five days hypoxia and steroids per protocol for COVID.
[2023-12-22 18:03] LABS: Glucose, Whole Blood 444 mg/dL (60-115)
[2023-12-22] MEDS: Sucralfate 1 GM TABLET PO ×2 (18:10→20:06)
[2023-12-22] MEDS: Magnesium Oxide 400 MG TABLET PO (18:10)
[2023-12-22] MEDS: Furosemide 40 MG TABLET 80 MG PO (18:10)
[2023-12-22] MEDS: Furosemide 40 MG TABLET PO (18:11)
[2023-12-22 19:55] LABS: Glucose, Whole Blood 524 mg/dL (60-115)
[2023-12-22] MEDS: traZODone HCL 50 MG TABLET PO (20:06)
[2023-12-22] MEDS: cephALEXin 500 MG CAPSULE PO (20:07)
[2023-12-22] MEDS: Remdesivir 200 MG in 0.9 % Sodium Chloride 210 ML 105 MG IV (22:19)
[2023-12-22 22:38] LABS: Glucose, Whole Blood 340 mg/dL (60-115)
--- NOTE | 2023-12-22 22:55 | PC.RT ---
Pt refused to wear CPAP for NOC support. Pt states he hasn't been wearing his cpap at home as well
[2023-12-23] VITALS (10 sets, daily range): BP systolic 123–147; BP diastolic 64–79; PULSE 74–92; RESP 16–30; TEMP 36.2–37; O2SAT 2–94
[2023-12-23] MEDS: Heparin Sodium,Porcine 5,000 UNIT/ML VIAL 5000 UNIT SUBCUT ×3 (00:44→16:30)
[2023-12-23] MEDS: 0.9 % Sodium Chloride Flush 3 ML SYRINGE IVFLUSH ×4 (00:46→16:15)
[2023-12-23 07:04] LABS: Anion Gap 16 (12-20); Blood Urea Nitrogen 39 mg/dL (9-16); Calcium 8.1 mg/dL (8.4-10.2); Carbon Dioxide 20 mmol/L (22-29); Chloride 110 mmol/L (96-108); Creatinine Clr Calc Pharmacy 54.3; Estimated Glomerular Filt Rate 53; Glucose Random 229 mg/dL (60-115); Hematocrit 31.5 % (42.0-52.0); Hemoglobin 10.6 g/dl (14.0-18.0); Mean Corpuscular HGB Conc 33.7 g/dl (31.0-36.0); Mean Corpuscular Hemoglobin 27.2 pg (27.0-33.0); Mean Platelet Volume 11.1 fL (9.4-12.4); Platelet Count 247 X10*3/uL (160-400); Potassium 4.5 mmol/L (3.3-5.1); Red Blood Count 3.89 X10*6/uL (4.60-5.80); Red Cell Distribution Width 15.2 % (11.0-16.0); Sodium 141 mmol/L (135-145); White Blood Count 17.6 X10*3/uL (4.8-10.8)
[2023-12-23 07:13] LABS: B Type Natriuretic Peptide 538 pg/mL (<100)
[2023-12-23 07:34] LABS: Glucose, Whole Blood 222 mg/dL (60-115)
[2023-12-23] MEDS: hydrALAZINE HCl 50 MG TABLET 100 MG PO ×3 (09:01→20:34)
[2023-12-23] MEDS: Magnesium Oxide 400 MG TABLET PO ×2 (09:01→16:30)
[2023-12-23] MEDS: Escitalopram Oxalate 10 MG TABLET PO (09:02)
[2023-12-23] MEDS: Metoprolol Succinate ER 100 MG TAB.ER.24H PO (09:02)
[2023-12-23] MEDS: Aspirin Enteric Coated 81 MG TABLET.DR PO (09:02)
[2023-12-23] MEDS: Atorvastatin Calcium 40 MG TABLET PO (09:02)
[2023-12-23] MEDS: Sucralfate 1 GM TABLET PO ×4 (09:02→20:31)
[2023-12-23] MEDS: amLODIPine Besylate 10 MG TABLET PO (09:02)
[2023-12-23] MEDS: dexAMETHasone 6 MG TABLET PO (09:02)
[2023-12-23] MEDS: Pantoprazole Sodium 40 MG/10 ML VIAL IVPUSH (09:04)
[2023-12-23] MEDS: Insulin Glargine,Hum.rec.anlog 100 UNIT/ML 10 ML VIAL 30 UNIT SUBCUT (09:04)
[2023-12-23] MEDS: Amoxicillin/Potassium Clav 875 MG TABLET PO ×2 (09:22→20:31)
[2023-12-23] MEDS: Insulin Lispro 100 UNIT/ML 3 ML VIAL SUBCUT ×5 (09:22→20:39)
[2023-12-23 11:28] LABS: Glucose, Whole Blood 166 mg/dL (60-115)
--- NOTE | 2023-12-23 11:29 | P.PNIM_ITS ---
Subjective Subjective Date of Service: 12/23/23 Interval History: seen and examined this morning follow up for COVID 19, strep throat feeling tired, with body aches, decreased appetite, mild sob Review of Systems Review of Systems: Yes all other systems are reviewed and are negative Constitutional Constitutional: Denies chills and Denies fever(s) Cardiovascular Cardiovascular: Denies chest pain Gastrointestinal Gastrointestinal: Denies abdominal pain Physical Exam 2 Vital Signs: Vital Signs: Last Vital Signs Temp 97.1 F 12/23/23 07:15 Pulse 90 12/23/23 07:15 Resp 20 12/23/23 07:15 BP 139/64 12/23/23 07:15 Pulse Ox 90 L 12/23/23 10:24 O2 Del Method Nasal Cannula 12/23/23 10:24 O2 Flow Rate 2 12/23/23 10:24 BMI result Body Mass Index 24.8 Const: Other: tired, ill appearing General: alert and awake Nutritional Appearance: average body habitus Orientation/consciousness: patient oriented x3 Resp: Other: no crackles, or wheezing Effort & Inspection: normal respiratory effort, able to speak in complete sentences, no respiratory distress and no use of accessory muscles Cardio: Jugular venous distension: no JVD GI: Inspection: No distended Palpation (GI): Soft to palpation and nontender Neuro: General: patient oriented x3, moves all extremities and CN's II-XI intact bilaterally Extrem: General: Yes no pedal edema Objective Data Active Medications Acetaminophen (Acetaminophen 325 Mg Tablet) 975 mg PO Q6H PRN PRN Reason: Pain, Mild (Pain Scale 1-3) Last Admin: 12/22/23 06:18 Dose: 975 mg Documented By: TIANNA Albuterol Sulfate (Albuterol Sulfate 90 Mcg 8 Gm Inhaler) 2 puff INHALE Q4H PRN PRN Reason: bronchospasm Albuterol/Ipratropium (Albuterol/Iprat 2.5/0.5mg 3 Ml Ampul.Neb) 3 ml INHALE RQ4H WHILE AWAKE [facility] Last Admin: 12/23/23 08:29 Dose: Not Given Documented By: PUJA Non-Admin Reason: Patient Refused Amlodipine Besylate (Amlodipine Besylate 10 Mg Tablet) 10 mg PO DAILY [facility]; Protocol Last Admin: 12/23/23 09:02 Dose: 10 mg Documented By: SANDRA Amoxicillin/Clavulanate Potassium (Amoxicillin/Potassium Clav 875 Mg Tablet) 875 mg PO Q12H [facility] Stop: 12/30/23 08:14 Last Admin: 12/23/23 09:22 Dose: 875 mg Documented By: SANDRA Aspirin (Aspirin Enteric Coated 81 Mg Tablet.) 81 mg PO DAILY [facility] Last Admin: 12/23/23 09:02 Dose: 81 mg Documented By: SANDRA Atorvastatin Calcium (Atorvastatin Calcium 40 Mg Tablet) 40 mg PO DAILY [facility] Last Admin: 12/23/23 09:02 Dose: 40 mg Documented By: SANDRA Dexamethasone (Dexamethasone 6 Mg Tablet) 6 mg PO DAILY [facility] Last Admin: 12/23/23 09:02 Dose: 6 mg Documented By: SANDRA Dextrose (Dextrose 50 % 25 Gm/50 Ml Syringe) 25 gm IVPUSH Q15M PRN; Protocol PRN Reason: per Hypoglycemia Standing Ord. Escitalopram Oxalate (Escitalopram Oxalate 10 Mg Tablet) 10 mg PO DAILY [facility] Last Admin: 12/23/23 09:02 Dose: 10 mg Documented By: SANDRA Fluticasone/Vilanterol (Fluticasone/Vilanterol 100/25 Blst.W.Dev) 1 puff INHALE RDAILY [facility] Last Admin: 12/23/23 08:29 Dose: Not Given Documented By: PUJA Non-Admin Reason: Patient Refused Furosemide (Furosemide 40 Mg/4 Ml Vial) 40 mg IVPUSH BID@0900,1800 [facility]; Protocol Last Admin: 12/23/23 08:59 Dose: Not Given Documented By: SANDRA Non-Admin Reason: Physician Approved Comments: per provider Poonam Sinclair order Glucose (Glucose Gel 15 Gm Gel..Gram.) 15 gm PO Q15M PRN; Protocol PRN Reason: Per Hypoglycemia Standing Ord. Heparin Sodium (Porcine) (Heparin Sodium,Porcine 5,000 Unit/Ml Vial) 5,000 unit SUBCUT Q8H [facility] Last Admin: 12/23/23 09:04 Dose: 5,000 unit Documented By: SANDRA Hydralazine HCl (Hydralazine Hcl 50 Mg Tablet) 100 mg PO TID [facility]; Protocol Last Admin: 12/23/23 09:01 Dose: 100 mg Documented By: SANDRA Remdesivir 100 mg/ Sodium (Chloride) 230 mls @ 115 mls/hr IV Q24H [facility] Stop: 12/26/23 21:59 Insulin Glargine (Insulin Glargine,Hum.Rec.Anlog 100 Unit/Ml 10 Ml Vial) 30 unit SUBCUT DAILY [facility] Last Admin: 12/23/23 09:04 Dose: 30 unit Documented By: SANDRA Insulin Human Lispro (Insulin Lispro 100 Unit/Ml 3 Ml Vial) [facility]; Protocol Last Admin: 12/23/23 09:22 Dose: 6 unit Documented By: SANDRA Insulin Human Lispro (Insulin Lispro 100 Unit/Ml 3 Ml Vial) 5 [facility] Last Admin: 12/23/23 08:58 Dose: Not Given Documented By: SANDRA Non-Admin Reason: No Insulin Coverage Comments: per provider order, patient not eating breakfast. Magnesium Oxide (Magnesium Oxide 400 Mg Tablet) [facility] Last Admin: 12/23/23 09:01 Dose: 400 mg Documented By: SANDRA Metoprolol Succinate (Metoprolol Succinate Er 100 Mg Tab.Er.24h) 100 mg PO DAILY [facility]; Protocol Last Admin: 12/23/23 09:02 Dose: 100 mg Documented By: SANDRA Pantoprazole Sodium (Pantoprazole Sodium 40 Mg/10 Ml Vial) 40 mg IVPUSH BID [facility] Last Admin: 12/23/23 09:04 Dose: 40 mg Documented By: SANDRA Sodium Chloride (0.9 % Sodium Chloride Flush 3 Ml Syringe) 3 ml IVFLUSH [facility] Last Admin: 12/23/23 09:02 Dose: 3 ml Documented By: SANDRA Sodium Chloride (0.9 % Sodium Chloride Flush 3 Ml Syringe) [facility] Last Admin: 12/23/23 09:23 Dose: 3 ml Documented By: SANDRA Sucralfate (Sucralfate 1 Gm Tablet) 1 gm PO QIDAS [facility] Last Admin: 12/23/23 09:02 Dose: 1 gm Documented By: SANDRA Trazodone HCl (Trazodone Hcl 50 Mg Tablet) 50 mg PO BEDTIME [facility] Last Admin: 12/22/23 20:06 Dose: 50 mg Documented By: ELISA Labs 12/23/23 06:21 12/23/23 06:21 Labs: Laboratory Results - last 24 hr 12/22/23 12/22/23 12/22/23 11:46 17:51 19:40 MCV MCH MCHC RDW Plt Count MPV Absolute Nucleated RBC Nucleated RBC % (auto) Anion Gap Estim Creat Clear Calc Estimated GFR POC Glucose 407 H* 444 H* 524 H* Random Glucose Calcium B-Natriuretic Peptide 12/22/23 12/23/23 12/23/23 22:24 06:21 07:28 MCV 81.0 MCH 27.2 MCHC 33.7 RDW 15.2 Plt Count 247 MPV 11.1 Absolute Nucleated RBC 0.000 Nucleated RBC % (auto) 0.0 Anion Gap 16 Estim Creat Clear Calc 54.3 Estimated GFR 53 POC Glucose 340 H 222 H Random Glucose 229 H Calcium 8.1 L B-Natriuretic Peptide 538 H Microbiology Microbiology Results: Microbiology 12/22/23 04:25 Blood Culture - Preliminary Blood - Venous No growth after 24 hours. 12/22/23 04:13 Blood Culture - Preliminary Blood - Venous No growth after 24 hours. Assessment and Plan (1) Strep throat: Status: Acute (2) COVID: Status: Acute Plan This is a 48 year old male with history of diabetes, chronic heart failure, HTN, CKD, recent admission for influenza a who presents with weakness found to have covid 19 and strep pharyngitis Acute hypoxic respiratory failure secondary due to COVID-19 infection also has underlying COPD (uses prn oxygen at baseline) o2 sat as low as 77% in ED Continue supplemental oxygen to keep oxygen saturation >90% seen by ID, started on remdecivir x 5 days and decadron acute on chronic diastolic congestive heart failure bnp higher then previous and cxr with ? pulm edema BNP trending up but does not appear to be fluid overloaded will hold baseline lasix today and follow BMP monitor Is and Os Strep throat. augmentin x 7 days per ID COPD no wheezing on exam, no acute exacerbation continue breathing treatments acute on chronic normocytic Anemia reports history of iron deficiency anemia and was recently taken off iron supplement by family preservation officer no evidence of active bleeding H/H stable Hyperchloremic metabolic acidosis likely secondary to IV fluids. bicarb trending up follow BMP Hyperlipidemia. Continue statin. Type 2 diabetes mellitus with hyperglycemia typically uses a insulin pump - does not have any cartridges with him and no one is able to bring them from home he transitions to Lantus when unable to use pump. hyperglycemia noted on last admission due to steroids Continue Lantus 30 Units (higher then baseline) blood sugars trending up due to steroids/acute infection - will schedule premeal insulin and follow insulin needs continue SSI, follow POCs, will up titrate lantus as needed Mood Continue escitalopram. Essential hypertension. Continue amlodipine, metoprolol and hydralazine. Chronic kidney disease. renal function appears to be at baseline YARELIS continue CPAP dvt ppx - heparin Requires ongoing inpatient stay for respiratory failure due to covid 19 infection Quality Stroke Does the patient have a stroke diagnosis?: No VTE Prior VTE?: No VTE Risk Level:: Medical - moderate - high VTE Device Contraindication: Treatment Not Indicated VTE Drug Contraindication: N/A - Med Ordered
[2023-12-23] MEDS: Albuterol/Iprat 2.5/0.5MG 3 ML AMPUL.NEB INHALE (11:50)
[2023-12-23 15:29] LABS: Glucose, Whole Blood 295 mg/dL (60-115)
--- NOTE | 2023-12-23 16:12 | MHC.CM.PN ---
PT ADMITTED, COVID + CM ATTEMPTED TO CONTACT PT VIA T/C [phone], VM MESSAGE LEFT PER EMR, PT LIVES WITH HIS AND IS INDEPENDENT WITH CARE HE HAS DM SUPPLIES, HOME O2 AND A CPAP NO SERVICES PER LAST ADMISSION IN OCTOBER PCP: STEPHANIE AMOS HCP ON FILE DCP: HOME NO SERVICES VIA SHUTTLE
[2023-12-23] MEDS: traZODone HCL 50 MG TABLET PO (20:31)
[2023-12-23] MEDS: Remdesivir 100 MG in 0.9 % Sodium Chloride 230 ML 115 MG IV (20:31)
[2023-12-23 20:34] LABS: Glucose, Whole Blood 221 mg/dL (60-115)
[2023-12-24] VITALS (8 sets, daily range): BP systolic 136–158; BP diastolic 66–81; PULSE 67–78; RESP 16–22; TEMP 36.2–37.5; O2SAT 94–98
[2023-12-24] MEDS: 0.9 % Sodium Chloride Flush 3 ML SYRINGE IVFLUSH ×5 (02:21→14:46)
[2023-12-24] MEDS: Heparin Sodium,Porcine 5,000 UNIT/ML VIAL 5000 UNIT SUBCUT ×3 (02:22→16:35)
[2023-12-24] MEDS: Omeprazole 40 MG CAPSULE.DR PO (06:10)
[2023-12-24 08:11] LABS: Glucose, Whole Blood 186 mg/dL (60-115)
[2023-12-24] MEDS: Amoxicillin/Potassium Clav 875 MG TABLET PO ×2 (08:59→20:39)
[2023-12-24] MEDS: dexAMETHasone 6 MG TABLET PO (08:59)
[2023-12-24] MEDS: Sucralfate 1 GM TABLET PO ×4 (08:59→20:40)
[2023-12-24] MEDS: Magnesium Oxide 400 MG TABLET PO ×2 (08:59→16:35)
[2023-12-24] MEDS: Escitalopram Oxalate 10 MG TABLET PO (08:59)
[2023-12-24] MEDS: Aspirin Enteric Coated 81 MG TABLET.DR PO (08:59)
[2023-12-24] MEDS: Atorvastatin Calcium 40 MG TABLET PO (09:00)
[2023-12-24] MEDS: Metoprolol Succinate ER 100 MG TAB.ER.24H PO (09:00)
[2023-12-24] MEDS: amLODIPine Besylate 10 MG TABLET PO (09:00)
[2023-12-24] MEDS: hydrALAZINE HCl 50 MG TABLET 100 MG PO ×3 (09:00→20:39)
[2023-12-24] MEDS: Insulin Lispro 100 UNIT/ML 3 ML VIAL SUBCUT ×6 (09:01→20:39)
[2023-12-24 09:02] LABS: Anion Gap 14 (12-20); Blood Urea Nitrogen 39 mg/dL (9-16); Carbon Dioxide 20 mmol/L (22-29); Chloride 114 mmol/L (96-108); Creatinine Clr Calc Pharmacy 63.7; Estimated Glomerular Filt Rate > 60; Glucose Random 182 mg/dL (60-115); Potassium 4.9 mmol/L (3.3-5.1); Sodium 143 mmol/L (135-145)
[2023-12-24] MEDS: Insulin Glargine,Hum.rec.anlog 100 UNIT/ML 10 ML VIAL 30 UNIT SUBCUT (09:02)
--- NOTE | 2023-12-24 10:26 | P.PNIM_ITS ---
Subjective Subjective Date of Service: 12/24/23 Interval History: seen and examined this morning follow up for covid, strep throat feeling a little better today, reporting nasal congestion, sore throat, weakness and fatigue no significant sob, or cough Review of Systems Review of Systems: Yes all other systems are reviewed and are negative Constitutional Constitutional: Denies chills and Denies fever(s) Cardiovascular Cardiovascular: Denies chest pain, Denies palpitations and Denies dyspnea Respiratory Respiratory: Denies dyspnea Gastrointestinal Gastrointestinal: Denies abdominal pain Endocrine Endocrine: Denies palpitations Physical Exam 2 Vital Signs: Vital Signs: Last Vital Signs Temp 97.4 F 12/24/23 07:43 Pulse 75 12/24/23 07:43 Resp 18 12/24/23 08:11 BP 158/81 H 12/24/23 07:43 Pulse Ox 95 12/24/23 07:43 O2 Del Method Nasal Cannula 12/24/23 07:43 O2 Flow Rate 2 12/24/23 07:43 BMI result Body Mass Index 24.8 Const: Other: tired, ill appearing General: alert and awake Nutritional Appearance: average body habitus Orientation/consciousness: patient oriented x3 Resp: Other: rhonchi; no crackles, or wheezing Effort & Inspection: normal respiratory effort, able to speak in complete sentences, no respiratory distress and no use of accessory muscles Cardio: Jugular venous distension: no JVD GI: Inspection: No distended Palpation (GI): Soft to palpation and nontender Neuro: General: patient oriented x3, moves all extremities and CN's II-XI intact bilaterally Extrem: General: Yes no pedal edema Objective Data Active Medications Acetaminophen (Acetaminophen 325 Mg Tablet) 975 mg PO Q6H PRN PRN Reason: Pain, Mild (Pain Scale 1-3) Last Admin: 12/22/23 06:18 Dose: 975 mg Documented By: TIANNA Albuterol Sulfate (Albuterol Sulfate 90 Mcg 8 Gm Inhaler) 2 puff INHALE Q4H PRN PRN Reason: bronchospasm Albuterol/Ipratropium (Albuterol/Iprat 2.5/0.5mg 3 Ml Ampul.Neb) 3 ml INHALE RQ4H WHILE AWAKE [facility] Last Admin: 12/24/23 08:10 Dose: Not Given Documented By: SUZANNE Non-Admin Reason: Patient Refused Amlodipine Besylate (Amlodipine Besylate 10 Mg Tablet) 10 mg PO DAILY [facility]; Protocol Last Admin: 12/24/23 09:00 Dose: 10 mg Documented By: SANDRA Amoxicillin/Clavulanate Potassium (Amoxicillin/Potassium Clav 875 Mg Tablet) 875 mg PO Q12H [facility] Stop: 12/30/23 08:14 Last Admin: 12/24/23 08:59 Dose: 875 mg Documented By: SANDRA Aspirin (Aspirin Enteric Coated 81 Mg Tablet.Dr) 81 mg PO DAILY [facility] Last Admin: 12/24/23 08:59 Dose: 81 mg Documented By: SANDRA Atorvastatin Calcium (Atorvastatin Calcium 40 Mg Tablet) 40 mg PO DAILY [facility] Last Admin: 12/24/23 09:00 Dose: 40 mg Documented By: SANDRA Benzocaine (Throat Lozenge, Medicated Lozenge) 1 lozenge MUCOUS MEM Q2H PRN PRN Reason: Sore Throat Dexamethasone (Dexamethasone 6 Mg Tablet) 6 mg PO DAILY [facility] Last Admin: 12/24/23 08:59 Dose: 6 mg Documented By: SANDRA Dextrose (Dextrose 50 % 25 Gm/50 Ml Syringe) 25 gm IVPUSH Q15M PRN; Protocol PRN Reason: per Hypoglycemia Standing Ord. Escitalopram Oxalate (Escitalopram Oxalate 10 Mg Tablet) 10 mg PO DAILY [facility] Last Admin: 12/24/23 08:59 Dose: 10 mg Documented By: SANDRA Fluticasone/Vilanterol (Fluticasone/Vilanterol 100/25 Blst.W.Dev) 1 puff INHALE RDAILY [facility] Last Admin: 12/24/23 08:10 Dose: Not Given Documented By: SUZANNE Non-Admin Reason: Patient Refused Glucose (Glucose Gel 15 Gm Gel..Gram.) 15 gm PO Q15M PRN; Protocol PRN Reason: Per Hypoglycemia Standing Ord. Heparin Sodium (Porcine) (Heparin Sodium,Porcine 5,000 Unit/Ml Vial) 5,000 unit SUBCUT Q8H [facility] Last Admin: 12/24/23 09:00 Dose: 5,000 unit Documented By: SANDRA Hydralazine HCl (Hydralazine Hcl 50 Mg Tablet) 100 mg PO TID [facility]; Protocol Last Admin: 12/24/23 09:00 Dose: 100 mg Documented By: SANDRA Remdesivir 100 mg/ Sodium (Chloride) 230 mls @ 115 mls/hr IV Q24H [facility] Stop: 12/26/23 21:59 Last Infusion: 12/23/23 22:36 Dose: Infused Documented By: GLENNY Insulin Glargine (Insulin Glargine,Hum.Rec.Anlog 100 Unit/Ml 10 Ml Vial) 30 unit SUBCUT DAILY [facility] Last Admin: 12/24/23 09:02 Dose: 30 unit Documented By: SANDRA Insulin Human Lispro (Insulin Lispro 100 Unit/Ml 3 Ml Vial) [facility]; Protocol Last Admin: 12/24/23 09:01 Dose: 4 unit Documented By: SANDRA Insulin Human Lispro (Insulin Lispro 100 Unit/Ml 3 Ml Vial) 5 unit SUBCUT QIDAS [facility] Last Admin: 12/24/23 08:41 Dose: Not Given Documented By: SANDRA Non-Admin Reason: Physician Held Med Comments: per provider Poonam Sinclair Magnesium Oxide (Magnesium Oxide 400 Mg Tablet) [facility] Last Admin: 12/24/23 08:59 Dose: 400 mg Documented By: SANDRA Metoprolol Succinate (Metoprolol Succinate Er 100 Mg Tab.Er.24h) 100 mg PO DAILY [facility]; Protocol Last Admin: 12/24/23 09:00 Dose: 100 mg Documented By: SANDRA Multi-Ingred Medicated Throat Sevier (Throat Sevier, Medicated 177 Ml Bottle) 1 spray MUCOUS MEM Q2H PRN PRN Reason: Sore Throat Omeprazole (Omeprazole 40 Mg Dalia.) 40 mg PO DAILY@0630 [facility] Last Admin: 12/24/23 06:10 Dose: 40 mg Documented By: CIRILO Sodium Chloride (0.9 % Sodium Chloride Flush 3 Ml Syringe) 3 ml IVFLUSH [facility] Last Admin: 12/24/23 09:01 Dose: 3 ml Documented By: SANDRA Sodium Chloride (0.9 % Sodium Chloride Flush 3 Ml Syringe) 3 ml IVFLUSH [facility] Last Admin: 12/24/23 09:02 Dose: 3 ml Documented By: SANDRA Sucralfate (Sucralfate 1 Gm Tablet) [facility] Last Admin: 12/24/23 08:59 Dose: 1 gm Documented By: SANDRA Trazodone HCl (Trazodone Hcl 50 Mg Tablet) 50 mg PO BEDTIME [facility] Last Admin: 12/23/23 20:31 Dose: 50 mg Documented By: GLENNY Labs 12/23/23 06:21 12/24/23 08:29 Labs: Laboratory Results - last 24 hr 12/23/23 12/23/23 12/23/23 11:25 15:18 20:21 Hold Purple Top Anion Gap Estim Creat Clear Calc Estimated GFR POC Glucose 166 H 295 H 221 H Random Glucose Calcium 12/24/23 12/24/23 07:53 08:29 Hold Purple Top SEE NOTE Anion Gap 14 Estim Creat Clear Calc 63.7 Estimated GFR > 60 POC Glucose 186 H Random Glucose 182 H Calcium 9.0 D Microbiology Microbiology Results: Microbiology 12/22/23 04:25 Blood Culture - Preliminary Blood - Venous No growth after 48 hours. 12/22/23 04:13 Blood Culture - Preliminary Blood - Venous No growth after 48 hours. Assessment and Plan (1) Strep throat: Status: Acute (2) COVID: Status: Acute Plan This is a 48 year old male with history of diabetes, chronic heart failure, HTN, CKD, recent admission for influenza a who presents with weakness found to have covid 19 and strep pharyngitis Acute hypoxic respiratory failure secondary due to COVID-19 infection also has underlying COPD (uses prn oxygen at baseline) o2 sat as low as 77% in ED Continue supplemental oxygen to keep oxygen saturation >90% seen by ID, started on remdecivir x 5 days and decadron acute on chronic diastolic congestive heart failure bnp higher then previous and cxr with ? pulm edema BNP trending up but does not appear to be fluid overloaded home lasix on hold resume baseline lasix in am Strep throat. augmentin x 7 days per ID COPD no wheezing on exam, no acute exacerbation continue breathing treatments acute on chronic normocytic Anemia reports history of iron deficiency anemia and was recently taken off iron supplement by bacteriologist soil no evidence of active bleeding H/H stable Hyperchloremic metabolic acidosis likely secondary to IV fluids. bicarb trending up follow BMP Hyperlipidemia. Continue statin. Type 2 diabetes mellitus with hyperglycemia typically uses a insulin pump - does not have any cartridges with him and no one is able to bring them from home he transitions to Lantus when unable to use pump. hyperglycemia noted on last admission due to steroids Continue Lantus 30 Units (higher then baseline) POCs improved with scheduled premeal insulin continue SSI, follow POCs, will up titrate lantus as needed Mood Continue escitalopram. Essential hypertension. Continue amlodipine, metoprolol and hydralazine. Chronic kidney disease. renal function appears to be at baseline YARELIS continue CPAP dvt ppx - heparin Requires ongoing inpatient stay for respiratory failure due to covid 19 infection Quality Stroke Does the patient have a stroke diagnosis?: No VTE Prior VTE?: No VTE Risk Level:: Medical - moderate - high VTE Device Contraindication: Treatment Not Indicated VTE Drug Contraindication: N/A - Med Ordered
[2023-12-24 11:45] LABS: Glucose, Whole Blood 147 mg/dL (60-115)
[2023-12-24] MEDS: Albuterol/Iprat 2.5/0.5MG 3 ML AMPUL.NEB INHALE ×2 (12:13→16:45)
--- NOTE | 2023-12-24 16:14 | MHC.CM.PN ---
EMR REVIEWED, PT ADMITTED W/HYPOXIC RES FAILURE D/T COVID19, PT REPORTS HE LIVES W/S[address]O. 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 PT VERIFIES PCP IS STEPHANIE AMOS, HCP IS S.O. MARGINE NUMBER ON FILE AND PT REPORTS HE IS COVID VAXED AND UNSURE OF HOW MANY TIMES.
[2023-12-24 16:50] LABS: Glucose, Whole Blood 267 mg/dL (60-115)
[2023-12-24 20:27] LABS: Glucose, Whole Blood 311 mg/dL (60-115)
[2023-12-24] MEDS: traZODone HCL 50 MG TABLET PO (20:39)
[2023-12-24] MEDS: Remdesivir 100 MG in 0.9 % Sodium Chloride 230 ML 115 MG IV (20:52)
[2023-12-25] MEDS: 0.9 % Sodium Chloride Flush 3 ML SYRINGE IVFLUSH ×3 (00:32→08:02)
[2023-12-25] MEDS: Heparin Sodium,Porcine 5,000 UNIT/ML VIAL 5000 UNIT SUBCUT ×2 (00:33→07:56)
--- NOTE | 2023-12-25 03:42 | PC.RT ---
Pt refused CPAP for NOC support for 2nd night
[2023-12-25 04:00] VITALS: BP 154/52; PULSE 78; RESP 16; TEMP 36.8; O2SAT 95
[2023-12-25] MEDS: Omeprazole 40 MG CAPSULE.DR PO (05:47)
[2023-12-25 07:16] LABS: Hematocrit 34.6 % (42.0-52.0); Hemoglobin 11.5 g/dl (14.0-18.0); Mean Corpuscular HGB Conc 33.2 g/dl (31.0-36.0); Mean Corpuscular Hemoglobin 26.7 pg (27.0-33.0); Mean Corpuscular Volume 80.3 fL (80.0-98.0); Mean Platelet Volume 11.4 fL (9.4-12.4); Platelet Count 285 X10*3/uL (160-400); Red Blood Count 4.31 X10*6/uL (4.60-5.80); Red Cell Distribution Width 15.1 % (11.0-16.0); White Blood Count 18.5 X10*3/uL (4.8-10.8)
[2023-12-25 07:33] LABS: Anion Gap 12 (12-20); Blood Urea Nitrogen 39 mg/dL (9-16); Carbon Dioxide 21 mmol/L (22-29); Chloride 112 mmol/L (96-108); Creatinine Clr Calc Pharmacy 60.2; Estimated Glomerular Filt Rate 59; Glucose Random 208 mg/dL (60-115); Potassium 4.6 mmol/L (3.3-5.1); Sodium 140 mmol/L (135-145)
[2023-12-25 07:37] LABS: Glucose, Whole Blood 198 mg/dL (60-115)
[2023-12-25 07:41] VITALS: BP 147/75; PULSE 70; RESP 18; TEMP 36.3; O2SAT 96
[2023-12-25 07:45] VITALS: PULSE 83; RESP 16; O2SAT 95
[2023-12-25] MEDS: Albuterol/Iprat 2.5/0.5MG 3 ML AMPUL.NEB INHALE ×2 (07:45→11:20)
[2023-12-25] MEDS: Insulin Glargine,Hum.rec.anlog 100 UNIT/ML 10 ML VIAL 30 UNIT SUBCUT (07:54)
[2023-12-25] MEDS: Insulin Lispro 100 UNIT/ML 3 ML VIAL SUBCUT ×2 (07:54→12:22)
[2023-12-25] MEDS: Furosemide 40 MG TABLET 80 MG PO (07:55)
[2023-12-25] MEDS: Amoxicillin/Potassium Clav 875 MG TABLET PO (07:55)
[2023-12-25] MEDS: Aspirin Enteric Coated 81 MG TABLET.DR PO (07:55)
[2023-12-25] MEDS: amLODIPine Besylate 10 MG TABLET PO (07:55)
[2023-12-25] MEDS: Magnesium Oxide 400 MG TABLET PO (07:55)
[2023-12-25] MEDS: dexAMETHasone 6 MG TABLET PO (07:55)
[2023-12-25] MEDS: Sucralfate 1 GM TABLET PO ×2 (07:55→12:22)
[2023-12-25] MEDS: Metoprolol Succinate ER 100 MG TAB.ER.24H PO (07:55)
[2023-12-25] MEDS: Escitalopram Oxalate 10 MG TABLET PO (07:55)
[2023-12-25] MEDS: hydrALAZINE HCl 50 MG TABLET 100 MG PO (07:55)
[2023-12-25] MEDS: Atorvastatin Calcium 40 MG TABLET PO (07:55)
--- NOTE | 2023-12-25 09:16 | PC.RT ---
pt has been refusing to wear cpap here at [facility] and he doesnt wear it at home eother. Therefore the order will be d/c. will let md aware
[2023-12-25 11:20] VITALS: PULSE 86; RESP 18; O2SAT 93
--- NOTE | 2023-12-25 11:20 | MHC.CM.PN ---
Pt. said that he has a nurse that comes from [facility], but they informed us that he is not a pt. with them. CM left voice mail message with a nurse that pt. told her of: Jorgito, , to determine what agency provides him with home care services. Pt. said he has his car in the lot here, and that his girlfriend helps him at home. CM to follow and assist as needed with DC plan.
[2023-12-25 11:24] LABS: Glucose, Whole Blood 156 mg/dL (60-115)
[2023-12-25 11:28] VITALS: BP 147/74; PULSE 77; RESP 18; TEMP 36.8; O2SAT 95
[2023-12-25] MEDS: Fluticasone/Vilanterol 100/25 BLST.W.DEV 1 PUFF INHALE (11:28)
--- NOTE | 2023-12-25 13:24 | P.DS_ITS ---
DS: Providers Provider Date of Service: 12/25/23 Date of admission: 12/22/23 05:13 Primary care physician: Unknown Physician Consults: 12/22/23 05:18 Consult to Infectious Diseases Routine Consulting Provider: [facility] Infectious Disease Reason for consultation: Resp failure, COVID-9 Has provider been notified: No DS: Diagnosis Discharge Diagnosis (1) Strep throat: Status: Acute (2) COVID: Status: Acute DS: Summary Hospital Course Hospital Course: Date of Service: 12/22/23 Attending physician on admission: Samantha Chowdhury Chief Complaint: Elevated blood glucose Ciara Quiroga is a 48 years old man with past medical history significant for COPD on home oxygen, essential hypertension and type 2 diabetes mellitus on insulin presents to the emergency department complaining of persistent elevated blood glucose. He has been having mild shortness on breath and cough. He did not report fever, dizziness or headache. He denied any acute gastrointestinal genitourinary symptoms. He admitted he has been smoking. Denies alcohol abuse. In the emergency department, he developed significant hypoxia, 77% and now requiring 4 liters/minutes via OxyMask. There is no hypotension of tachycardia. Blood workup was remarkable for significant hyperglycemia 430 on presentation to the ED. Most recent blood glucose is 202 after receiving treatment with insulin. There is mild acidosis with normal anion gap. BNP is elevated, 376. Renal function is normal. Hemoglobin is 10.8 (baseline 11.5-12.5). Viral testing is positive for strep pyogenes and COVID-19. CHF showed finding consistent with interstitial edema. ED tx: NS 2 L bolus, ceftriaxone 1 g IV, dexamethasone 6 mg IV. Hospital course : 48 year old male with history of diabetes, chronic heart failure, HTN, CKD, recent admission for influenza a who presents with weakness found to have covid 19 and strep pharyngitis Acute hypoxic respiratory failure secondary due to COVID-19 infection , no acute COPD exacerbation noted patient on as needed oxygen at baseline in ED noted to have O2 sat as low as 77% treated with supplemental oxygen, IV remdesivir and IV Decadron patient responded well to above treatment oxygenation improved currently 94% on room air patient denies shortness of breath, no cough feeling tired therefore he is being discharged home to finish a total 10 day course of Decadron patient is on Augmentin for strep throat ID recommend total 7 days of antibiotic recommend to continue Augmentin for 3 more days. acute on chronic diastolic congestive heart failure noted to have elevated BNP, chest x-ray showed mild pulmonary edema treated with IV Lasix, patient appears euvolemic placed back on baseline dose of Lasix. COPD no acute exacerbation noted recommend to continue home inhalers Chronic normocytic Anemia, no acute anemia noted,reports history of iron deficiency anemia and was recently taken off iron supplement by steward/stewardess night ,no evidence of active bleeding,H/H stable Hyperchloremic metabolic acidosis likely secondary to IV fluids, repeat bmp showing improvement no further treatment needed.. Hyperlipidemia. Continue statin. Type 2 diabetes mellitus on insulin pump noted to have hyperglycemia likely due to steroids recommend to resume insulin pump and insulin bolus , strongly recommend to follow diabetic diet. Mood Continue escitalopram. Essential hypertension. Continue amlodipine, metoprolol and hydralazine. Chronic kidney disease. renal function appears to be at baseline YARELIS continue CPAP Time Attestation Discharge coordination time: Greater than 30 minutes Quality: Safe Use of Opioids Does Pt have an Active Cancer Diagnosis on the Problem List?: No Quality: Stroke Does the patient have a stroke diagnosis?: No Physical Exam Vital Signs: Vital Signs: Last Vital Signs Temp 98.3 F 12/25/23 11:28 Pulse 77 12/25/23 11:28 Resp 18 12/25/23 11:28 BP 147/74 H 12/25/23 11:28 Pulse Ox 95 12/25/23 11:28 O2 Del Method Room Air 12/25/23 11:28 O2 Flow Rate 2 12/25/23 07:41 BMI result Body Mass Index 24.8 Const: Other: General alert oriented x3, resting comfortably in no acute distress. Neck supple no JVD. CVS regular rate rhythm, Respiratory lungs clear to auscultation, no respiratory distress, no wheeze, no rhonchi. Gastrointestinal abdomen soft, non tender, bowel sounds audible, no guarding , no rigidity. Extremities no edema. Neuro nonfocal , speech clear. Skin no rash Psych appropriate affect. DS: Data Data Completed and Pending Completed studies during hospitalization [Text1]: Procedures Assistance with Respiratory Ventilation, Less than 24 Consecutive Hours, Continuous Positive Airway Pressure (04/17/23) Detoxification Services for Substance Abuse Treatment (09/07/22) Excision of Esophagus, Via Natural or Artificial Opening Endoscopic, Diagnostic (09/07/22) Excision of Stomach, Pylorus, Via Natural or Artificial Opening Endoscopic, Diagnostic (09/07/22) Labs on day of discharge: Laboratory Results - last 24 hr 12/24/23 12/24/23 12/25/23 16:35 20:01 06:22 WBC 18.5 H RBC 4.31 L Hgb 11.5 L Hct 34.6 L MCV 80.3 MCH 26.7 L MCHC 33.2 RDW 15.1 Plt Count 285 MPV 11.4 Absolute Nucleated RBC 0.000 Nucleated RBC % (auto) 0.0 Sodium 140 Potassium 4.6 Chloride 112 H Carbon Dioxide 21 L Anion Gap 12 BUN 39 H Creatinine 1.29 Estim Creat Clear Calc 60.2 Estimated GFR 59 POC Glucose 267 H 311 H Random Glucose 208 H Calcium 9.0 12/25/23 12/25/23 07:26 11:18 WBC RBC Hgb Hct MCV MCH MCHC RDW Plt Count MPV Absolute Nucleated RBC Nucleated RBC % (auto) Sodium Potassium Chloride Carbon Dioxide Anion Gap BUN Creatinine Estim Creat Clear Calc Estimated GFR POC Glucose 198 H 156 H Random Glucose Calcium Preliminary micro results at discharge 12/22/23 04:25 Blood Culture - Preliminary Blood - Venous No growth after 48 hours. 12/22/23 04:13 Blood Culture - Preliminary Blood - Venous No growth after 48 hours. Discharge Plan Discharge Anticipated Discharge Date/Time: 12/25/23 13:10 Patient Disposition: Home, Self-Care Discharge Diagnosis: Acute hypoxic respiratory failure due to COVID-19 infection Acute on chronic diastolic congestive Heart failure strep throat Referrals: Physician,Unknown J [Primary Care Provider] - 1 Week Discharge Medications: New dexamethasone 6 mg Tablet 6 mg PO DAILY Qty: 7 0RF Continued hydralazine 100 mg tablet 100 mg PO TID 30 Days Qty: 90 5RF sucralfate 1 gram Tablet 1 g PO QIDACHS Qty: 120 0RF trazodone 50 mg tablet 100 mg PO BEDTIME escitalopram oxalate 10 mg tablet 10 mg PO DAILY amlodipine 10 mg Tablet 10 mg PO DAILY 30 Days Qty: 30 0RF Protocol: Hold for SBP< HOLD for SBP < : 90 atorvastatin 40 mg tablet 40 mg PO DAILY gabapentin 300 mg capsule 300 mg PO TID Hold Instructions: Resume on 11/07/22. metoprolol succinate 100 mg tablet extended release 24 hr 100 mg PO DAILY omeprazole 40 mg capsule,delayed release(DR/EC) 40 mg PO DAILY@0630 magnesium oxide 400 mg (241.3 mg magnesium) Tablet 400 mg PO BIDPC Qty: 60 0RF fluticasone propion-salmeterol [Advair Diskus] 250-50 mcg/dose blister with device 1 ea inhalation BID multivitamin Tablet 1 tab PO DAILY insulin lispro 100 unit/mL insulin pen See Rx Instructions .ROUTE .COMPLEX Rx Instructions: UNDER 100 = 0 UNITS 101-150 6 UNITS 151-200 8 UNITS 201-250 10 UNITS 251-300 12 UNITS 301 - 350 14 UNITS 351 - 400 16 UN[address] OVER [address] insulin glargine [Lantus Solostar U-100 Insulin] 100 unit/mL (3 mL) insulin pen 27 unit subcut BEDTIME PRN (Reason: Hyperglycemia) Rx Instructions: pt uses as backup to insulin pump furosemide 40 mg tablet 80 mg PO DAILY albuterol sulfate 90 mcg/actuation HFA aerosol inhaler 2 puff inhalation Q4-6H PRN (Reason: bronchospasm) Qty: 8.5 1RF furosemide 40 mg tablet 40 mg PO BEDTIME amoxicillin-pot clavulanate [Augmentin] 500-125 mg tablet 1 tab PO TID Qty: 29 0RF acetaminophen 500 mg capsule 1,000 mg PO Q6H PRN (Reason: fever or pain) Qty: 20 0RF aspirin 81 mg tablet,delayed release (DR/EC) 81 mg PO DAILY Discharge Orders: Discharge Order (Routine); Ordered 12/25/23 Ordered By: Rosibel Bowen Diet: Diabetic diet Activity on Discharge: As tolerated Stand Alone Forms: Patient Portal Discharge page Activity Restrictions/Additional Instructions: Drink plenty of fluids Take antibiotic as prescribed Take your insulin by insulin pump Follow with PCP if not better Care Plan Goals: Take dexamethasone for 7 more days For hyperglycemia due to dexamethasone use insulin bolus continue insulin pump Use 3 more days of by mouth Augmentin to finish a total 7 day course of antibiotic Continue all other home medication Returned to check with recurrent symptoms of shortness of breath lightheadedness dizziness fevers. Health Concerns: Diabetes Plan of Treatment: Follow-up with primary care physician Assessment: As above Patient Instructions: Strep Throat (ED), COVID-19 (Coronavirus Disease 2019) (ED)
--- NOTE | 2023-12-25 13:41 | MHC.CM.PN ---
Pt. has been medically cleared for DC, he will transport himself home and resume his prior home health services.
== END 2023-12-25 13:48 | disposition home or self-care (01) | DRG 137 ==
LOC: HO.ED 12-22 05:08 → HO.EDOVER 12-22 05:19 → HO.IMC 12-22 15:37
PROVIDERS: Emergency Medicine; Nurse Practitioner Family; Physician Assistant Medical; Admitting Provider Internal Medicine; Emergency Provider Internal Medicine; PCP Internal Medicine; Visit Provider Hospitalist
DX: U07.1 COVID-19 (principal); I50.33 Acute on chronic diastolic (congestive) heart failure; E87.20 Acidosis, unspecified; E11.22 Type 2 diabetes mellitus with diabetic chronic kidney disease; D63.1 Anemia in chronic kidney disease; J02.0 Streptococcal pharyngitis; E78.5 Hyperlipidemia, unspecified; E11.65 Type 2 diabetes mellitus with hyperglycemia; Z99.81 Dependence on supplemental oxygen; J44.9 Chronic obstructive pulmonary disease, unspecified; I13.0 Hypertensive heart and chronic kidney disease with heart failure and stage 1 through stage 4 chronic kidney disease, or unspecified chronic kidney disease; N18.9 Chronic kidney disease, unspecified; G47.33 Obstructive sleep apnea (adult) (pediatric); F41.9 Anxiety disorder, unspecified; F32.A Depression, unspecified; Z96.41 Presence of insulin pump (external) (internal); Z79.82 Long term (current) use of aspirin; Z79.899 Other long term (current) drug therapy
CPT/HCPCS: 36415; 71045; 80048; 80053; 80076; 82010; 82803; 82947; 83605; 83880; 85025; 85027; 87040; 94640; 99285; C9113; J0248; J0696; J1100; J1644; J8540

== ENCOUNTER → 2023-12-22 05:13 | Outpatient (BNV) | payer OTHER, SELFPAY | PROVIDERS: Admitting Provider Internal Medicine; Emergency Provider Internal Medicine; Visit Provider Internal Medicine | DX: J81.0 Acute pulmonary edema (principal); I50.9 Heart failure, unspecified; J02.0 Streptococcal pharyngitis; U07.1 COVID-19 | CPT/HCPCS: 99222 ==

== ENCOUNTER → 2023-12-22 05:13 | Outpatient (BNV) | payer OTHER, SELFPAY | PROVIDERS: Admitting Provider Internal Medicine; Emergency Provider Internal Medicine; Visit Provider Internal Medicine | DX: J02.0 Streptococcal pharyngitis (principal); U07.1 COVID-19 | CPT/HCPCS: 99223; 99232; 99233; 99238; 99499 ==

== ENCOUNTER 2024-02-20 13:20 | Outpatient (AMB) | payer OTHER, SELFPAY ==
[2024-02-20 13:24] VITALS: BP 134/72; PULSE 78; BMI 23.7
--- NOTE | 2024-02-20 13:24 | MHC.OFFVIS ---
Vital Signs 02/20/24 13:24 Height 5 ft 5 in Weight 142 lb 6.698 oz BMI 23.7 BP 134/72 Blood Pressure Location Lt brachial Position Sitting Pulse 78 Pulse Source Pulse Oximeter Intake Visit Reasons: 6 mth f/up Portainer Operator Required: No Allergies dulaglutide [From Trulicity] Allergy (Verified 02/20/24 13:26) Unknown metformin [METFORMIN] Adverse Reaction (Mild, Verified 02/20/24 13:26) DIARRHEA, nausea and vomiting Medication List - Last Reconciled 02/20/24 by Alissa Wiggins NP-C acetaminophen 1,000 mg (2 x 500 mg) PO Q6H PRN albuterol sulfate 90 mcg/actuation 2 puffs inhalation Q4-6H PRN amlodipine 10 mg See Protocol PO DAILY 30 days aspirin 81 mg PO DAILY atorvastatin 40 mg PO DAILY escitalopram oxalate 10 mg PO DAILY fluticasone propion-salmeterol 250-50 mcg/dose (Advair Diskus) 1 ea inhalation BID furosemide 80 mg PO DAILY furosemide 40 mg PO BEDTIME gabapentin 300 mg PO TID hydralazine 100 mg PO TID 30 days insulin glargine (Lantus Solostar U-100 Insulin) 27 units subcut BEDTIME PRN insulin lispro UNDER 100 = 0 UNITS 101-150 6 UNITS 151-200 8 UNITS 201-250 10 UNITS 251-300 12 UNITS 301 - 350 14 UNITS 351 - 400 16 UNITS OVER 400 CALL magnesium oxide 400 mg PO BIDPC metoprolol succinate ER 100 mg PO DAILY multivitamin 1 tab PO DAILY omeprazole 40 mg PO DAILY@0630 sucralfate 1 g PO QIDACHS trazodone 100 mg PO BEDTIME HPI HPI 6 mth f/up: Details: Ciara is a 48-year-old male with past medical history of diabetes, hyperlipidemia, hypertension, obstructive sleep apnea with CPAP use, COPD, alcohol abuse,? heart failure with preserved EF who was admitted to [facility] [facility] in October 2023 with hypoxic respiratory failure, influenza a then in November 2023 with hypoxic respiratory failure, hyperglycemia, COVID, strep pharyngitis. During that admission his chest x-ray did show some mild pulmonary edema and he was diuresed and sent home on his usual Lasix. Today he reports that he has been doing well since his last hospitalization. He feels that he has recovered mostly from his COVID infection. Still has some mild residual congestion. He wears his oxygen as needed and during the night. He monitors his O2 sats at home. He has not wearing oxygen at this visit. No chest discomfort with exertion. He does get random pains in his chest which he relates to heavy breathing and coughing. No palpitations, lightheadedness, presyncope, syncope, falls, PND, edema. He does sleep with 2 pillows which is his norm. Takes his meds as directed. Tells me he has pulmonology visit tomorrow. [facility] Medical History Hypertension Chronic heart failure with preserved ejection fraction (HFpEF) Acute respiratory failure with hypoxia Congestive heart failure CKD (chronic kidney disease) stage 1, GFR 90 ml/min or greater Depression COPD exacerbation YARELIS (obstructive sleep apnea) CHF exacerbation Hypoxia KELVIN (acute kidney injury) Acute respiratory failure Uncontrolled hypertension Acute on chronic diastolic (congestive) heart failure Acute on chronic anemia Hyperglycemia due to type 2 diabetes mellitus YARELIS (obstructive sleep apnea) Congestive heart failure Anxiety HLD (hyperlipidemia) Diabetes Hypercholesteremia HTN (hypertension) Asthma PAD (peripheral artery disease) Surgical History S/P angiogram of extremity Family History Father Alzheimer disease CAD (coronary artery disease) Social History Household Members: Significant Other Household Members Other:: girlfriend Housing: Apartment Do you presently have visiting nurse or other home services: Yes Unable to assess alcohol history related to: Unknown Alcohol intake: never Comment: low fall risk Patient Tobacco Use Status: Never used Tobacco Tobacco use type: Cigarette Cigarettes Per Day: 5 Years Smoked: >30 e-Cigarette/Vaping Use: Never Used Second Hand Smoke Exposure: No Substance Use Type: Marijuana Advance Directives Date on File: 06/21/21 service: No Current occupational status: disabled Review of Systems Const All systems reviewed & are unremarkable except as noted in HPI and below ENT Denies dizziness Card Reports chest pain, Denies chest pain at rest, Denies chest pain with activity, Denies rapid heart rate, Denies pedal edema, Denies edema, Denies leg edema, Denies lightheadedness, Denies palpitations, Reports dyspnea, Reports dyspnea on exertion and Reports orthopnea Resp Reports cough, Reports dyspnea and Reports dyspnea on exertion GI Denies hematochezia and Denies change in stool character Musc Denies abnormal gait, Denies limited range of motion, Denies muscle cramps, Denies muscle weakness, Denies numbness, Denies radiating pain into limb, Denies stiffness and Denies tingling Neuro Denies abnormal gait, Denies dizziness, Denies numbness and Denies tingling Endo Denies palpitations Physical Exam Vital Signs: Last Vital Signs Pulse 78 02/20/24 13:24 BP 134/72 02/20/24 13:24 BMI result Body Mass Index 23.7 Const General: cooperative, healthy appearing, comfortable and no acute distress Orientation/consciousness: patient oriented x3 Neck Neck: Yes normal visual inspection Resp Effort & Inspection: normal respiratory effort Auscultation: clear to auscultation bilaterally, no crackles, no rales, no rhonchi and no wheezes Cardio Jugular venous distension: no JVD Rate: regular rate Rhythm: regular rhythm Heart sounds: S1 normal heart sound present, S2 normal heart sound present, no murmurs and no rubs Neuro General: patient oriented x3 Extrem General: Yes normal to inspection, No no pedal edema and No calf tenderness Psych Appearance: grossly normal Mental Status: mental status grossly normal Speech and movement: Normal speech and movement present Assessment & Plan Assessment & Plan (1) Congestive heart failure: Code(s): I50.9 - Heart failure, unspecified Category: Medical Qualifiers: Heart failure type: diastolic Plan: History of heart failure with preserved EF. Two recent admissions for hypoxic respiratory failure in the setting of influenza a and COVID. During his 2nd admission he did have chest x-ray showing mild pulmonary edema. He was diuresed and sent home with his usual Lasix 80 mg in the a.m. and 40 mg in the p.m.. Last Echocardiogram in our system on 08/01/2022 showed EF is 60-65%, normal valves and normal RV. He does not appear fluid overloaded on exam today. He tells me his breathing has been comfortable more recently. He wears his oxygen p.r.n and during the night. Signs and symptoms of hearture reviewed with him. Instructed him on home weight monitoring. He can take an additional dose of Lasix if he develops increased shortness of breath, edema or weight gain greater than 3 lb. Low-salt diet reviewed. Cardiology follow-up in 6 months, sooner if needed. (2) YARELIS (obstructive sleep apnea): Code(s): G47.33 - Obstructive sleep apnea (adult) (pediatric) Category: Medical Plan: Tells me that he wears mask at night with O2 (3) HTN (hypertension): Code(s): I10 - Essential (primary) hypertension Category: Medical Qualifiers: Hypertension type: primary hypertension Qualified Code(s): I10 - Essential (primary) hypertension Plan: Well controlled at this time. No med changes made. Continue amlodipine, Lasix, hydralazine, metoprolol. (4) Hospital discharge follow-up: Code(s): Z09 - Encounter for follow-up examination after completed treatment for conditions other than malignant neoplasm Category: Medical Plan: As above Plan Time spent on chart review, documentation, interview assessment Coding Level of Care Code Est Pt Level 4 (97971) Diagnoses Congestive heart failure I50.9 Heart failure type: diastolic YARELIS (obstructive sleep apnea) G47.33 Primary hypertension I10 Hypertension type: primary hypertension Hospital discharge follow-up Z09 Time Spent (min) 28
== END 2024-02-20 13:54 | disposition home or self-care (01) ==
PROVIDERS: PCP Internal Medicine; Visit Provider Nurse Practitioner Family
DX: I50.9 Heart failure, unspecified (principal); G47.33 Obstructive sleep apnea (adult) (pediatric); I10 Essential (primary) hypertension; Z09 Encounter for follow-up examination after completed treatment for conditions other than malignant neoplasm
CPT/HCPCS: 99214

== ENCOUNTER → 2024-02-20 13:20 | Outpatient (BNVA) | payer OTHER, SELFPAY | PROVIDERS: PCP Internal Medicine; Visit Provider Nurse Practitioner Family | DX: I11.0 Hypertensive heart disease with heart failure (principal); I50.33 Acute on chronic diastolic (congestive) heart failure; G47.33 Obstructive sleep apnea (adult) (pediatric); Z09 Encounter for follow-up examination after completed treatment for conditions other than malignant neoplasm | CPT/HCPCS: 99212 ==

== ENCOUNTER 2024-04-25 16:36 | Inpatient (IN) | payer OTHER, SELFPAY ==
--- NOTE | ~2024-04-25 | CT_ITS ---
EXAMINATION: CT CHEST WITHOUT CONTRAST CLINICAL INFORMATION: Hemoptysis, chest pain, lactic acidosis COMPARISON: CT chest October 30, 2023 TECHNIQUE: Multidetector volumetric CT imaging of the chest was done. Axial MIP volume rendering provided. Sagittal and coronal reformatted images were obtained. This CT examination was performed using dose optimization techniques as appropriate, variously including the following: *Automated exposure control *Adjustment of mA and/or kV according to patient size (this includes techniques or standardized protocols for targeted exams where dose is matched to indication/reason for exam; i.e. extremities or head) *Use of iterative reconstruction technique DLP: 627 mGy-cm FINDINGS: LUNGS: The lungs are clear with no evidence of inflammation or nodules. MEDIASTINUM: Heart size is normal. No pericardial effusion. No significant lymphadenopathy. The mid through distal thoracic esophagus has thickened moore. No significant edema surrounding the esophagus. CORONARY ARTERY CALCIFICATION: None visualized on this study. PLEURA: There is no pleural effusion. No pleural mass or thickening. AXILLA/chest wall: No lymphadenopathy. Redemonstration of multiple subcutaneous nodules in the posterior right back is unchanged since CAT scan October 30, 2023. UPPER ABDOMEN: Unremarkable. OSSEOUS STRUCTURES: Unremarkable. CT/CT chest wo IV con IMPRESSION: 1. The lungs are clear. 2. The mid through distal thoracic esophagus has thickened moore. Consider direct visualization. Fleischner guidelines were followed.
--- NOTE | ~2024-04-25 | CT_ITS ---
EXAMINATION: CT ABDOMEN AND PELVIS WITHOUT CONTRAST CLINICAL INFORMATION: Abdominal pain. Hematemesis. COMPARISON: CT scan abdomen pelvis October 30, 2023 TECHNIQUE: Multidetector volumetric imaging was performed from the superior aspect of the liver through the pubic symphysis. Sagittal and coronal reformatted images were obtained on the technologist's workstation. This CT examination was performed using dose optimization techniques as appropriate, variously including the following: *Automated exposure control *Adjustment of mA and/or kV according to patient size (this includes techniques or standardized protocols for targeted exams where dose is matched to indication/reason for exam; i.e. extremities or head) *Use of iterative reconstruction technique DLP: 627 mGy-cm FINDINGS: LUNG BASES: The visualized lung bases are unremarkable. LIVER, GALLBLADDER, AND BILIARY TREE: The liver is normal in size, shape, and attenuation. No focal hepatic lesion or biliary ductal dilatation is present. The gallbladder is unremarkable with no evidence of radiopaque gallstones, gallbladder wall thickening, or obvious pericholecystic inflammatory changes. PANCREAS: Unremarkable. SPLEEN: Unremarkable. ADRENAL GLANDS: Stable adrenal hyperplasia bilateral. KIDNEYS AND URETERS: The kidneys are normal in size, shape, and attenuation. No hydronephrosis, hydroureter, or calculi seen. No perinephric stranding. BLADDER: Unremarkable. GASTROINTESTINAL TRACT: The small and large bowel are unremarkable. The appendix is unremarkable. There is a small hiatal hernia. ABDOMINAL WALL: No significant hernia is appreciated. LYMPH NODES: Normal. VASCULAR: Vascular calcifications in the abdomen and pelvis. No aneurysm of aorta. PELVIC VISCERA: Unremarkable. OSSEOUS STRUCTURES: Unremarkable. CT/CT abdomen pelvis wo IV con IMPRESSION: No acute abnormality CT scan abdomen pelvis. Fleischner guidelines were followed.
[2024-04-25 17:05] VITALS: BP 146/74; BP 187/92; PULSE 110; RESP 20; O2SAT 100; O2SAT 98; BMI 22.5
--- NOTE | 2024-04-25 18:02 | ED.GENADULT ---
HPI - General Adult General Chief complaint: Dyspnea Stated complaint: cough, blood tinged sputum, chest pain Time Seen by Provider: 04/25/24 17:54 Source: patient and EMS Mode of arrival: EMS Limitations: no limitations History of Present Illness ED Provider: DR. Powell HPI narrative: 48 year old gentleman with past medical history significant for COPD on 4 L supplemental oxygen at home, HTN, dm type 2, sleep apnea uses CPAP machine, congestive heart failure. Patient drinks vodka every other day Came in by ambulance for 1 day of severe chest pain coughing and vomiting coffee-ground blood, patient had similar episode in the past had upper endoscopy revealed erosive esophagitis/gastritis. Symptoms started since this morning. Not on any anticoagulation only use daily baby aspirin. Stated that he had similar presentation in the past and is due to his COPD/CHF exacerbation. Related Data Home Medications ?Medication ?Instructions ?Recorded ?Confirmed escitalopram oxalate 10 mg tablet 10 mg PO DAILY 08/01/22 02/20/24 trazodone 50 mg tablet 100 mg PO BEDTIME 08/01/22 02/20/24 aspirin 81 mg tablet,delayed 81 mg PO DAILY 10/06/22 02/20/24 release atorvastatin 40 mg tablet 40 mg PO DAILY 10/06/22 02/20/24 gabapentin 300 mg capsule 300 mg PO TID 10/06/22 02/20/24 metoprolol succinate 100 mg 100 mg PO DAILY 10/06/22 02/20/24 tablet,extended release 24 hr omeprazole 40 mg capsule,delayed 40 mg PO DAILY@0630 10/06/22 02/20/24 release insulin lispro 100 unit/mL See Rx Instructions .Route .COMPLEX 04/17/23 02/20/24 subcutaneous pen furosemide 40 mg tablet 80 mg PO DAILY 06/26/23 02/20/24 insulin glargine 100 unit/mL (3 27 unit subcut BEDTIME PRN 06/26/23 02/20/24 mL) subcutaneous pen (Lantus Hyperglycemia Solostar U-100 Insulin) furosemide 40 mg tablet 40 mg PO BEDTIME 11/24/23 02/20/24 fluticasone 250 mcg-salmeterol 50 1 ea inhalation BID 12/22/23 02/20/24 mcg/dose blistr powdr for inhalation (Advair Diskus) multivitamin 1 tab PO DAILY 12/22/23 02/20/24 Previous Rx's ?Medication ?Instructions ?Recorded amlodipine 10 mg tablet 10 mg PO DAILY 30 days #30 tabs 08/07/22 magnesium oxide 400 mg (241.3 mg 400 mg PO BIDPC #60 tabs 08/20/22 magnesium) tablet sucralfate 1 gram tablet 1 g PO QIDACHS #120 tabs 09/10/22 hydralazine 100 mg tablet 100 mg PO TID 30 days #90 tabs 05/09/23 albuterol sulfate 90 mcg/actuation 2 puff inhalation Q4-6H PRN 10/30/23 aerosol inhaler bronchospasm #8.5 grams acetaminophen 500 mg capsule 1,000 mg (2 x 500 mg) PO Q6H PRN 12/21/23 fever or pain #20 caps Allergies Allergy/AdvReac Type Severity Reaction Status Date / Time dulaglutide [From [facility]] Allergy Unknown Verified 04/25/24 17:13 metformin [METFORMIN] AdvReac Mild DIARRHEA, Verified 04/25/24 17:13 nausea and vomiting Review of Systems Review of Systems: All other systems are reviewed and are negative Constitutional: Reports as per HPI and Reports no additional constitutional complaints Eyes: Reports as per HPI and Reports no additional eye complaints Reports system reviewed and no additional complaints, except as documented Cardiovascular: Reports as per HPI and Reports no additional cardiovascular complaints Respiratory: Reports as per HPI and Reports no additional respiratory complaints Gastrointestinal: Reports as per HPI and Reports no additional gastrointestinal complaints Genitourinary: Reports no additional female genitourinary complaints Musculoskeletal: Reports no additional musculoskeletal complaints Skin/Breast: Reports system reviewed and no additional complaints, except as docu Psychiatric: Reports no additional psychiatric complaints Endocrine: Reports no additional endocrine complaints Hematologic/Lymphatic: Reports no additional hematologic/lymphatic complaints Allergic/Immunologic: Reports no additional allergic/immunologic complaints Reports system reviewed and no additional complaints, except as documented and Reports Abnormal speech present [facility] Past Medical History Medical History Hypertension Chronic heart failure with preserved ejection fraction (HFpEF) Acute respiratory failure with hypoxia Congestive heart failure CKD (chronic kidney disease) stage 1, GFR 90 ml/min or greater Depression COPD exacerbation YARELIS (obstructive sleep apnea) CHF exacerbation Hypoxia KELVIN (acute kidney injury) Acute respiratory failure Uncontrolled hypertension Acute on chronic diastolic (congestive) heart failure Acute on chronic anemia Hyperglycemia due to type 2 diabetes mellitus YARELIS (obstructive sleep apnea) Congestive heart failure Anxiety HLD (hyperlipidemia) Diabetes Hypercholesteremia HTN (hypertension) Asthma PAD (peripheral artery disease) Surgical History S/P angiogram of extremity Family History Family History Father Alzheimer disease CAD (coronary artery disease) Social History Social History Household Members: Significant Other Household Members Other:: girlfriend Housing: Apartment Do you presently have visiting nurse or other home services: Yes Unable to assess alcohol history related to: Unknown Alcohol intake: never Comment: low fall risk Patient Tobacco Use Status: Never used Tobacco Tobacco use type: Cigarette Cigarettes Per Day: 5 Years Smoked: >30 e-Cigarette/Vaping Use: Never Used Second Hand Smoke Exposure: No Substance Use Type: Marijuana Advance Directives: Yes Advance Directives on File: Yes Advance Directives Date on File: 06/21/21 Do you have a plan to hurt others: No Plan service: No Current occupational status: disabled Physical Exam ED Vital Signs: Vital Signs - 24 hr 04/25/24 17:05 04/25/24 18:22 04/25/24 18:33 Temperature 98.9 F Pulse Rate 102 H Respiratory Rate 20 18 Blood Pressure 187/92 H 178/155 H 163/75 H Pulse Oximetry 98 99 Oxygen Delivery Method Room Air Room Air Oxygen Flow Rate 04/25/24 21:06 Temperature 97.9 F Pulse Rate 99 Respiratory Rate 18 Blood Pressure 181/85 H Pulse Oximetry 100 Oxygen Delivery Method Nasal Cannula Oxygen Flow Rate 4 BMI result Body Mass Index 22.5 Vital signs have been reviewed and appear to be correct. Blood pressure elevated. Heart rate normal. Respiratory rate normal. Temperature normal. Oxygen saturation normal. Appearance: In apparent acute distress due to chest pain. Head: Normal external exam. Normocephalic. Atraumatic. No Thao signs noted. No raccoon eyes noted Eyes: PERRLA. EOMI. Conjunctiva and sclera normal. Eyelids normal. ENT: TM's Normal. Pharynx normal. Uvula midline. Moist mucous membranes. No trismus noted. No drooling noted. No muffled voice noted. Neck: Normal inspection. Neck supple. FROM. No adenopathy. Thyroid Normal. No meningeal signs. No neck mass noted. CVS: Normal heart rate and rhythm. Heart sound normal. No murmurs noted. Pulses normal throughout. Respiratory: No respiratory distress. Painless inspiration. Breath sounds normal. No wheezes/rales/rhonchi noted. Chest nontender. No accessory muscle usage noted or decreased air movement noted. Abdomen: Soft and nontender. Bowel sounds normal in all 4 quadrants. No distention noted. No organomegaly noted. No visible injury noted. Rectal exam: Brown stool trace guaiac positive. Back: No CVA tenderness. Full range of motion noted. Skin: Skin warm and dry. Normal skin color. Normal skin turgor. No rashes/lesions/lacerations noted. Extremities: No lower extremity edema. Extremities exhibit normal range of motion. Extremities nontender. Neuro: Oriented X 3. Cranial nerve exam: II-XII are grossly intact No motor deficit. No sensory deficit. Reflexes normal. Course Reevaluation(s) Reevaluation #1: Patient appear more uncomfortable, in apparent pain patient is unable to tell if the pain in the chest mainly or in the abdomen, admitted to drinking alcohol yesterday, now patient is vomiting coffee-ground vomit, labs reveals leukocytosis and lactic acidosis and KELVIN. Will give IV Protonix, Zofran, Dilaudid to control patient's pain, CT chest/abdomen/pelvis stat was ordered. Time: 18:58 Reevaluation #2: Patient received multiple doses of Dilaudid and morphine, IV fluids, chest pain is due to alcoholic or erosive esophagitis, start on PPI, pain control, IV hydration. Case discussed with Dr. Aaron. Lactic acidosis not secondary to sepsis, no evidence of infection, patient was chronic leukocytosis. Admit Time: 22:55 Medications Administered Generic Name Dose Route Start Last Admin Trade Name Freq PRN Reason Stop Dose Admin Pantoprazole Sodium 80 mg/ 100 mls @ 10 mls/hr 04/25/24 21:00 04/25/24 21:40 Sodium Chloride IV 8 mg/hr .Q10H DIONISIO 10 mls/hr Administration 8 MG/HR Tranexamic Acid 1,000 mg/ 260 mls @ 32.5 mls/hr 04/25/24 21:14 04/25/24 22:01 Sodium Chloride IV 04/26/24 05:13 32.5 mls/hr .Q8H ONE Administration Discontinued Medications Generic Name Dose Route Start Last Admin Trade Name Gisell PRN Reason Stop Dose Admin Furosemide 40 mg 04/25/24 18:06 04/25/24 18:22 Furosemide 40 Mg/4 Ml Vial IVPUSH 04/25/24 18:07 40 mg ONCE ONE Administration Protocol Hydromorphone HCl 1 mg 04/25/24 18:06 04/25/24 18:26 Hydromorphone Hcl 1 Mg/Ml Syringe IVPUSH 04/25/24 18:07 1 mg ONCE ONE Administration Protocol Hydromorphone HCl 1 mg 04/25/24 18:57 04/25/24 19:45 Hydromorphone Hcl 1 Mg/Ml Syringe IVPUSH 04/25/24 18:58 1 mg ONCE ONE Administration Protocol Hydromorphone HCl 2 mg 04/25/24 20:35 04/25/24 20:55 Hydromorphone Hcl 2 Mg/Ml Vial IVPUSH 04/25/24 20:36 2 mg ONCE ONE Administration Protocol Magnesium Sulfate 2 gm in 50 mls @ 25 mls/hr 04/25/24 18:08 04/25/24 19:46 Magnesium Sulfate/H2o IV 04/25/24 20:07 Infused ONCE ONE Infusion Sodium Chloride 1,000 mls @ 999 mls/hr 04/25/24 19:05 04/25/24 21:48 Ns IV 04/25/24 20:05 Infused .Q1H1M ONE Infusion Ceftriaxone Sodium 1 gm/ 50 mls @ 100 mls/hr 04/25/24 19:05 04/25/24 20:25 Sodium Chloride IV 04/25/24 19:34 Infused ONCE ONE Infusion Sodium Chloride 1,000 mls @ 999 mls/hr 04/25/24 21:16 04/25/24 21:39 Ns IV 04/25/24 22:16 999 mls/hr .Q1H1M ONE Administration Methylprednisolone Sodium Succinate 125 mg 04/25/24 18:08 04/25/24 18:29 Methylprednisolone Sod Succ 125 Mg/2 Ml Vial IVPUSH 04/25/24 18:09 125 mg ONCE ONE Administration Ondansetron HCl 4 mg 04/25/24 18:55 04/25/24 19:44 Ondansetron Hcl 4 Mg/2 Ml Vial IVPUSH 04/25/24 18:56 4 mg ONCE ONE Administration Pantoprazole Sodium 80 mg 04/25/24 18:55 04/25/24 20:23 Pantoprazole Sodium 40 Mg/10 Ml Vial IVPUSH 04/25/24 18:56 80 mg ONCE ONE Administration Medical Decision Making Differential Diagnosis Differential Diagnoses: The differential diagnosis associated with the presentation includes (ACS, CHF, gastritis, esophagitis, perforated viscus, lactic acidosis, electrolyte derangement, severe anemia. Boerhaave syndrome, [place].) Admission/Observation Consideration of admission/observation: Escalation of care including admission/observation considered Consult Healthcare Provider Management of the patient was discussed with: Hospitalist (Dr. Turpin) and Buttonhole Facer (Dr. Aaron(GI)) Lab Data MDM Lab Attestation statement: I reviewed the patient's lab results. 04/25/24 21:51 04/25/24 18:19 Labs: Lab Results 04/25/24 04/25/24 04/25/24 Range/Units 18:19 18:20 18:31 WBC 19.0 H (4.8-10.8) X10*3/uL RBC 5.55 D (4.60-5.80) X10*6/uL Hgb 13.6 L (14.0-18.0) g/dl Hct 41.1 L (42.0-52.0) % MCV 74.1 L (80.0-98.0) fL MCH 24.5 L (27.0-33.0) pg MCHC 33.1 (31.0-36.0) g/dl RDW 18.8 H (11.0-16.0) % Plt Count 364 D (160-400) X10*3/uL MPV 9.6 (9.4-12.4) fL Immature Gran % (Auto) 0.4 (0.0-0.4) % Neut % (Auto) 86.0 H (45-73) % Lymph % (Auto) 8.8 L (20-40) % [place] % (Auto) 4.2 (2-11) % Eos % (Auto) 0.1 (0-4) % Baso % (Auto) 0.5 (0-2) % Lymph # (Auto) 1.7 (1.2-4.9) X10*3/uL [place] # (Auto) 0.8 (0.1-1.2) X10*3/uL Eos # (Auto) 0.0 (0.0-0.4) X10*3/uL Baso # (Auto) 0.1 (0.0-0.2) X10*3/uL Abs Immat Gran (auto) 0.08 H (0.00-0.03) X10*3/uL Absolute Neuts (auto) 16.3 H (2.0-8.3) x10*3/uL Absolute Nucleated RBC 0.000 (0.0-0.012) X10*3/uL Nucleated RBC % (auto) 0.0 (0.0-0.2) /100WBC Smear Tech's Comments PT 10.0 L (11.1-13.3) SEC INR 0.8 L (0.9-1.1) APTT 28.5 (26.0-36.8) SEC Sodium 140 (135-145) mmol/L Potassium 3.8 (3.3-5.1) mmol/L Chloride 105 (96-108) mmol/L Carbon Dioxide 14 L (22-29) mmol/L Anion Gap 25 H (12-20) BUN 32 H (9-16) mg/dL Creatinine 1.88 H (0.5-1.4) mg/dL Estim Creat Clear Calc 41.1 Estimated GFR 38 POC Glucose 250 H (60-115) mg/dL Random Glucose 262 H (60-115) mg/dL Lactic Acid 7.3 H* (0.5-2.0) mmol/L Lactic Acid F/U @ 2Hr (0.5-2.0) mmol/L Calcium 9.3 (8.4-10.2) mg/dL Total Bilirubin 0.2 (0.0-1.0) mg/dL Direct Bilirubin < 0.2 (0.0-0.5) mg/dL AST 14 (5-37) U/L ALT 13 (0-40) U/L Alkaline Phosphatase 108 (39-117) U/L Troponin I High Sens 5.2 (<3.5-35.0) ng/L B-Natriuretic Peptide 36 (<100) pg/mL Total Protein 8.0 (6.5-8.0) g/dL Albumin 4.3 (3.5-5.0) g/dL Lipase 49 (8-78) U/L Stool Occult Blood (NEGATIVE) Influenza Type A (PCR) NEGATIVE (Negative) Influenza Type B (PCR) NEGATIVE (Negative) RSV RNA Qual (PCR) NEGATIVE (Negative) SARS-CoV-2 RNA (RT-PCR) NEGATIVE (Negative) Blood Type Antibody Screen 04/25/24 04/25/24 04/25/24 Range/Units 20:43 21:51 21:54 WBC 21.0 H (4.8-10.8) X10*3/uL RBC 5.12 (4.60-5.80) X10*6/uL Hgb 12.4 L (14.0-18.0) g/dl Hct 37.4 L (42.0-52.0) % MCV 73.0 L (80.0-98.0) fL MCH 24.2 L (27.0-33.0) pg MCHC 33.2 (31.0-36.0) g/dl RDW 18.2 H (11.0-16.0) % Plt Count 310 (160-400) X10*3/uL MPV 9.5 (9.4-12.4) fL Immature Gran % (Auto) 0.5 H (0.0-0.4) % Neut % (Auto) 95.2 H (45-73) % Lymph % (Auto) 3.1 L (20-40) % [place] % (Auto) 0.7 L (2-11) % Eos % (Auto) 0.3 (0-4) % Baso % (Auto) 0.2 (0-2) % Lymph # (Auto) 0.7 L (1.2-4.9) X10*3/uL [place] # (Auto) 0.1 (0.1-1.2) X10*3/uL Eos # (Auto) 0.1 (0.0-0.4) X10*3/uL Baso # (Auto) 0.1 (0.0-0.2) X10*3/uL Abs Immat Gran (auto) 0.10 H (0.00-0.03) X10*3/uL Absolute Neuts (auto) 20.0 H (2.0-8.3) x10*3/uL Absolute Nucleated RBC 0.000 (0.0-0.012) X10*3/uL Nucleated RBC % (auto) 0.0 (0.0-0.2) /100WBC Smear Tech's Comments VERIFIED PT (11.1-13.3) SEC INR (0.9-1.1) APTT (26.0-36.8) SEC Sodium (135-145) mmol/L Potassium (3.3-5.1) mmol/L Chloride (96-108) mmol/L Carbon Dioxide (22-29) mmol/L Anion Gap (12-20) BUN (9-16) mg/dL Creatinine (0.5-1.4) mg/dL Estim Creat Clear Calc Estimated GFR POC Glucose (60-115) mg/dL Random Glucose (60-115) mg/dL Lactic Acid (0.5-2.0) mmol/L Lactic Acid F/U @ 2Hr 5.1 H* (0.5-2.0) mmol/L Calcium (8.4-10.2) mg/dL Total Bilirubin (0.0-1.0) mg/dL Direct Bilirubin (0.0-0.5) mg/dL AST (5-37) U/L ALT (0-40) U/L Alkaline Phosphatase (39-117) U/L Troponin I High Sens (<3.5-35.0) ng/L B-Natriuretic Peptide (<100) pg/mL Total Protein (6.5-8.0) g/dL Albumin (3.5-5.0) g/dL Lipase (8-78) U/L Stool Occult Blood POSITIVE (NEGATIVE) Influenza Type A (PCR) (Negative) Influenza Type B (PCR) (Negative) RSV RNA Qual (PCR) (Negative) SARS-CoV-2 RNA (RT-PCR) (Negative) Blood Type B Positive Antibody Screen NEGATIVE Independent Interpretation I performed an independent interpretation of an: CT Scan (Chest/abdomen/pelvis: Questionable esophagitis) Radiology Impression Discussion of test interpretation with radiology: I have reviewed the radiologist's reading. (1. The lungs are clear. 2. The mid through distal thoracic esophagus has thickened moore. Consider direct visualization. ) Chronic Conditions Patient?s care impacted by: Other (Alcohol use) Critical Care Time Critical Care Time Critical Care Time: Yes Total Critical Care Time: 60 Attestation: The patient was critically ill with a high probability of imminent or life-threatening deterioration. I spent greater than 30 minutes of discontinuous time evaluating the patient, delivering critical care at the bedside, discussing evaluating data with consultants. Critical care time does not include time spent performing separately billable procedures or teaching. Time spent performing critical care was 60 minutes. Discharge Plan Discharge Clinical Impression: Esophagitis, Hemoptysis, Chest pain Patient Disposition: Admitted As Inpatient Print Language: Zambian
--- NOTE | 2024-04-25 18:06 | ECG_ITS ---
Test Reason : ABDOMINAL PAIN Blood Pressure : / mmHG Vent. Rate : 102 BPM Atrial Rate : 102 BPM P-R Int : 136 ms QRS Dur : 078 ms QT Int : 344 ms P-R-T Axes : 062 060 054 degrees QTc Int : 448 ms Sinus tachycardia with Premature atrial complexes T wave abnormality, consider inferior ischemia Abnormal ECG When compared with ECG of 20-DEC-2023 19:17, Premature atrial complexes are now Present T wave inversion now evident in Inferior leads Referred By: Fercho Powell Electronically Signed By:INOCENCIO BERGMAN MD
--- NOTE | 2024-04-25 18:14 | PC.RT ---
Pt seen by RT for bronchodilator protocol. Pt is throwing up at this time and is unable to tolerate breathing tx. RT will reassess pt at a later time. RN aware.
[2024-04-25 18:22] VITALS: BP 178/155
[2024-04-25] MEDS: Furosemide 40 MG/4 ML VIAL IVPUSH (18:22)
[2024-04-25 18:24] LABS: MANUAL DIFF FLAG NO
[2024-04-25] MEDS: HYDROmorphone HCl 1 MG/ML SYRINGE IVPUSH ×2 (18:26→19:45)
[2024-04-25] MEDS: Magnesium Sulfate/H2O 2 GM/50 ML PIGGYBACK IV (18:29)
[2024-04-25] MEDS: methylPREDNISolone Sod Succ 125 MG/2 ML VIAL IVPUSH (18:29)
[2024-04-25 18:33] VITALS: BP 163/75; PULSE 102; RESP 18; TEMP 37.2; O2SAT 99
[2024-04-25 18:35] LABS: Glucose, Whole Blood 250 mg/dL (60-115)
[2024-04-25 18:35] LABS: Basophils Percent Auto 0.5 % (0-2); Eosinophils Percent Auto 0.1 % (0-4); Hemoglobin 13.6 g/dl (14.0-18.0); Imm Gran Abs Auto 0.08 X10*3/uL (0.00-0.03); Imm Gran Pct Auto 0.4 % (0.0-0.4)
[2024-04-25 18:40] LABS: INTERNATIONAL NORM RATIO 0.8 (0.9-1.1)
[2024-04-25 18:41] LABS: Alanine Aminotransferase 13 U/L (0-40); Albumin Level 4.3 g/dL (3.5-5.0); Alkaline Phosphatase 108 U/L (39-117); Anion Gap 25 (12-20); Aspartate Amino Transferase 14 U/L (5-37); Bilirubin Direct < 0.2 mg/dL (0.0-0.5); Bilirubin Total 0.2 mg/dL (0.0-1.0); Blood Urea Nitrogen 32 mg/dL (9-16); Calcium 9.3 mg/dL (8.4-10.2); Carbon Dioxide 14 mmol/L (22-29); Chloride 105 mmol/L (96-108); Creatinine Clr Calc Pharmacy 41.1; Estimated Glomerular Filt Rate 38; Glucose Random 262 mg/dL (60-115); Lipase 49 U/L (8-78); Potassium 3.8 mmol/L (3.3-5.1); Sodium 140 mmol/L (135-145)
[2024-04-25 18:42] LABS: Partial Thromboplastin Time 28.5 SEC (26.0-36.8)
[2024-04-25 18:43] LABS: Basophils Absolute Auto 0.1 X10*3/uL (0.0-0.2); Hematocrit 41.1 % (42.0-52.0); Lymphocytes Absolute Auto 1.7 X10*3/uL (1.2-4.9); Lymphocytes Percent Auto 8.8 % (20-40); Mean Corpuscular HGB Conc 33.1 g/dl (31.0-36.0); Mean Corpuscular Hemoglobin 24.5 pg (27.0-33.0); Mean Corpuscular Volume 74.1 fL (80.0-98.0); Mean Platelet Volume 9.6 fL (9.4-12.4); Monocytes Absolute Auto 0.8 X10*3/uL (0.1-1.2); Monocytes Percent Auto 4.2 % (2-11); Neutrophils Absolute Auto 16.3 x10*3/uL (2.0-8.3); Platelet Count 364 X10*3/uL (160-400); Red Blood Count 5.55 X10*6/uL (4.60-5.80); Red Cell Distribution Width 18.8 % (11.0-16.0)
[2024-04-25 18:45] LABS: Lactic Acid 7.3 mmol/L (0.5-2.0)
[2024-04-25 18:46] LABS: B Type Natriuretic Peptide 36 pg/mL (<100)
[2024-04-25 18:48] LABS: Troponin-I High Sensitivity 5.2 ng/L (<3.5-35.0)
[2024-04-25 19:09] LABS: Influenza A PCR NEGATIVE (Negative); Influenza B PCR NEGATIVE (Negative); Resp Syncy Virus RNA Qual PCR NEGATIVE (Negative); SARS COV2 PCR INHOUSE NEGATIVE (Negative)
[2024-04-25] MEDS: cefTRIAXone sodium 1 GM in 0.9 % Sodium Chloride 50 ML IV (19:41)
[2024-04-25] MEDS: 0.9 % Sodium Chloride 1,000 ML 999 ML IV ×2 (19:43→21:39)
[2024-04-25] MEDS: ondansetron HCL 4 MG/2 ML VIAL IVPUSH (19:44)
[2024-04-25] MEDS: Pantoprazole Sodium 40 MG/10 ML VIAL 80 MG IVPUSH (20:23)
[2024-04-25 20:24] LABS: Reflex Lactate? Lactic Acid Added
[2024-04-25] MEDS: HYDROmorphone HCl 2 MG/ML VIAL IVPUSH (20:55)
--- NOTE | 2024-04-25 20:59 | PC.NURSE ---
pt vomiting. pain not resolved. MD at bedside.
[2024-04-25 21:02] LABS: OBS Int Ctl Valid YES; OBS1 POSITIVE (NEGATIVE)
[2024-04-25 21:06] VITALS: BP 181/85; PULSE 99; RESP 18; TEMP 36.6; O2SAT 100
[2024-04-25] MEDS: Pantoprazole Sodium 80 MG in 0.9 % Sodium Chloride 80 ML 10 MG IV (21:40)
[2024-04-25 21:57] LABS: Basophils Absolute Auto 0.1 X10*3/uL (0.0-0.2); Basophils Percent Auto 0.2 % (0-2); Eosinophils Absolute Auto 0.1 X10*3/uL (0.0-0.4); Eosinophils Percent Auto 0.3 % (0-4); Hematocrit 37.4 % (42.0-52.0); Hemoglobin 12.4 g/dl (14.0-18.0); Imm Gran Pct Auto 0.5 % (0.0-0.4); Lymphocytes Absolute Auto 0.7 X10*3/uL (1.2-4.9); Lymphocytes Percent Auto 3.1 % (20-40); MANUAL DIFF FLAG SCAN; Mean Corpuscular HGB Conc 33.2 g/dl (31.0-36.0); Mean Corpuscular Hemoglobin 24.2 pg (27.0-33.0); Mean Platelet Volume 9.5 fL (9.4-12.4); Monocytes Absolute Auto 0.1 X10*3/uL (0.1-1.2); Monocytes Percent Auto 0.7 % (2-11); Neutrophils Percent Auto 95.2 % (45-73); Platelet Count 310 X10*3/uL (160-400); Red Blood Count 5.12 X10*6/uL (4.60-5.80); Red Cell Distribution Width 18.2 % (11.0-16.0); SCAN SMEAR FLAG 1
[2024-04-25] MEDS: Tranexamic Acid 1,000 MG in 0.9 % Sodium Chloride 250 ML 32.5 MG IV (22:01)
[2024-04-25 22:14] LABS: ~Lactic Acid-LAB USE ONLY 5.1 mmol/L (0.5-2.0)
[2024-04-25 22:27] LABS: SLIDE REVIEW VERIFIED
[2024-04-25 22:59] VITALS: BP 203/89; PULSE 112; RESP 22; TEMP 36.4; O2SAT 100
[2024-04-25] MEDS: Sucralfate Oral Suspension 1 GM/10 ML ORAL.SUSP PO (23:08)
[2024-04-25] MEDS: Morphine Sulfate 4 MG/ML CARTRIDGE IVPUSH (23:08)
[2024-04-25 23:54] LABS: Reflex Lactate? 2 Y
[2024-04-26] VITALS (9 sets, daily range): BP systolic 150–185; BP diastolic 75–95; PULSE 83–114; RESP 16–20; TEMP 36.3–36.9; O2SAT 93–100
[2024-04-26 00:15] LABS: Appearance Urine Clear; Color Urine Yellow; Glucose Urine UA Negative (Negative); Leukocyte Esterase Urine Trace (Negative); Nitrite Urine Negative (Negative); UMIC TRIGGER UACC YES; Urine Blood Trace (Negative); Urine Ketones Trace mg/dL (Negative); Urine Protein 300 (3+) mg/dL (Neg-Trace)
[2024-04-26 00:26] LABS: Bacteria Urine None Seen (None Seen); RBC Urine 0-2 /HPF (0-2); Squamous Epithelial Cell Urine 0-2 /HPF (0-2); WBC Urine 0-5 /HPF (0-5)
[2024-04-26 00:37] LABS: ~Lactic Acid-LAB USE ONLY 2.1 mmol/L (0.5-2.0)
[2024-04-26 01:10] LABS: Cancel Lactic Acid Canceled
--- NOTE | 2024-04-26 01:16 | P.HPHOSP_ITS ---
History of Present Illness Date of Service: 04/26/24 Attending physician on admission: Samantha Chowdhury Chief Complaint: Abdominal pain Ciara Quiroga is a 48 years old man with past medical history significant for ongoing alcohol abuse, erosive esophagitis, gastritis, COPD, essential hypertension and type 2 diabetes mellitus presents to the emergency department complaining of severe abdominal pain that started today associated with coffee- ground vomiting. The pain is described as sharp radiating to the chest. Denied shortness of breath, cough, diarrhea, fever or chills. He did not report any acute urinary symptoms. He has also a tobacco smoker and denied illicit drug use. He underwent a EGD on August [address] Ewing that showed erosive gastritis, gastritis and hiatal hernia. In the ED, he was found to have hypertension and tachycardia. His oxygen saturation is normal with 3 liters/minutes supplemental oxygen. Blood workup is remarkable for leukocytosis of 19, hemoglobin is 12.4 and platelets are normal. INR is 0.8. Glucose 250, CO2 is 14, BUN 32 and creatinine of 1.88 (prior 1.26). Initial lactic acid was 7.3. LFTs are normal. Chest, abdomen pelvis CT scan showed no acute findings except for distal thoracic esophagus thickening. ED tx: Cyklokapron 1 g IV Furosemide 40 mg IV Dilaudid 2 mg total IV Magnesium sulfate 2 g IV NS 1 L bolus Pantoprazole 80 mg IV then IV infusion Sucralfate 1 g PO Solu-Medrol 125 mg IV Zofran 4 mg IV Review of Systems 2 Review of Systems: All 12 systems were reviewed and normal except as noted in HPI. [facility] Medical History (Updated 04/26/24 @ 01:46 by Samantha Chowdhury MD) KELVIN (acute kidney injury) Hypertension Chronic heart failure with preserved ejection fraction (HFpEF) Acute respiratory failure with hypoxia Congestive heart failure CKD (chronic kidney disease) stage 1, GFR 90 ml/min or greater Depression COPD exacerbation YARELIS (obstructive sleep apnea) CHF exacerbation Hypoxia Acute respiratory failure Uncontrolled hypertension Acute on chronic diastolic (congestive) heart failure Acute on chronic anemia Hyperglycemia due to type 2 diabetes mellitus YARELIS (obstructive sleep apnea) Congestive heart failure Anxiety HLD (hyperlipidemia) Diabetes Hypercholesteremia HTN (hypertension) Asthma PAD (peripheral artery disease) Family History Father Alzheimer disease CAD (coronary artery disease) Surgical History S/P angiogram of extremity Social History Household Members: Significant Other Household Members Other:: girlfriend Housing: Apartment Do you presently have visiting nurse or other home services: Yes Unable to assess alcohol history related to: Unknown Alcohol intake: never Comment: low fall risk Patient Tobacco Use Status: Never used Tobacco Tobacco use type: Cigarette Cigarettes Per Day: 5 Years Smoked: >30 e-Cigarette/Vaping Use: Never Used Second Hand Smoke Exposure: No Substance Use Type: Marijuana Advance Directives: Yes Advance Directives on File: Yes Advance Directives Date on File: 06/21/21 Do you have a plan to hurt others: No Plan service: No Current occupational status: disabled Meds Allergies Allergy/AdvReac Type Severity Reaction Status Date / Time dulaglutide [From Trulicity] Allergy Unknown Verified 04/25/24 17:13 metformin [METFORMIN] AdvReac Mild DIARRHEA, Verified 04/25/24 17:13 nausea and vomiting Active Medications: Current Medications Pantoprazole Sodium 80 mg/ (Sodium Chloride) 100 mls @ 10 mls/hr IV .Q10H DIONISIO Last Admin: 04/25/24 21:40 Dose: 8 mg/hr, 10 mls/hr Tranexamic Acid 1,000 mg/ (Sodium Chloride) 260 mls @ 32.5 mls/hr IV .Q8H ONE Stop: 04/26/24 05:13 Last Admin: 04/25/24 22:01 Dose: 32.5 mls/hr Lactated Ringer's (Lr) 1,000 mls @ 999 mls/hr IV .Q1H1M STA Stop: 04/26/24 01:16 Thiamine HCl 100 mg/ Sodium (Chloride) 101 mls @ 202 mls/hr IV DAILY DIONISIO Sodium Chloride (Ns) 1,000 mls @ 100 mls/hr IVCONT .Q10H DIONISIO Phenobarbital (Phenobarbital 15 Mg Tablet) 45 mg PO BID DIONISIO; Protocol Stop: 04/27/24 21:01 Phenobarbital Sodium (Phenobarbital Sodium 130 Mg/Ml Vial Im Q3hx2) 184 mg IM Q3H DIONISIO Stop: 04/26/24 07:01 Sodium Chloride (0.9 % Sodium Chloride Flush 3 Ml Syringe) 3 [facility] Home Medications ?Medication ?Instructions ?Recorded ?Confirmed ?Last Taken ?Type escitalopram oxalate 10 mg tablet 10 mg PO DAILY 08/01/22 02/20/24 12/21/23 History trazodone 50 mg tablet 100 mg PO BEDTIME 08/01/22 02/20/24 12/21/23 History aspirin 81 mg tablet,delayed 81 mg PO DAILY 10/06/22 02/20/24 12/21/23 History release atorvastatin 40 mg tablet 40 mg PO DAILY 10/06/22 02/20/24 12/21/23 History gabapentin 300 mg capsule 300 mg PO TID 10/06/22 02/20/24 12/21/23 History metoprolol succinate 100 mg 100 mg PO DAILY 10/06/22 02/20/24 12/21/23 History tablet,extended release 24 hr omeprazole 40 mg capsule,delayed 40 mg PO DAILY@0630 10/06/22 02/20/24 12/21/23 History release insulin lispro 100 unit/mL See Rx Instructions .Route .COMPLEX 04/17/23 02/20/24 12/21/23 History subcutaneous pen furosemide 40 mg tablet 80 mg PO DAILY 06/26/23 02/20/24 12/21/23 History insulin glargine 100 unit/mL (3 27 unit subcut BEDTIME PRN 06/26/23 02/20/24 12/21/23 History mL) subcutaneous pen (Lantus Hyperglycemia Solostar U-100 Insulin) furosemide 40 mg tablet 40 mg PO BEDTIME 11/24/23 02/20/24 12/21/23 History fluticasone 250 mcg-salmeterol 50 1 ea inhalation BID 12/22/23 02/20/24 12/21/23 History mcg/dose blistr powdr for inhalation (Advair Diskus) multivitamin 1 tab PO DAILY 12/22/23 02/20/24 12/21/23 History Physical Exam 2 Vital Signs and Narrative: Vital Signs: Last Vital Signs Temp 98.1 F 04/26/24 00:57 Pulse 114 H 04/26/24 00:57 Resp 20 04/26/24 00:57 BP 183/91 H 04/26/24 00:57 Pulse Ox 100 06/28/24 00:57 O2 Del Method Room Air 04/26/24 00:57 O2 Flow Rate 4 04/25/24 22:59 BMI result Body Mass Index 22.5 Constitutional - Awake and Alert. In severe distress due to pain. HEENT - PERRL, EOMI. Normal sclerae. Heart - tachycardic. Normal rate. Lungs - Normal lung expansion, Normal respiratory effort, No respiratory distress, CTA bilaterally Abdomen - Nondistended. Increased bowel sounds. Epigastric tenderness with guarding. No rebound. Extremities - no calf tenderness bilaterally, no swelling Musculoskeletal - Normal inspection, normal ROM Skin - Warm/Dry Neurological - Alert & oriented x3. Normal speech. No focal weakness. Psychological - Depressed affect Results Labs 04/25/24 21:51 04/25/24 18:19 Labs: Laboratory Results - last 24 hr 04/25/24 04/25/24 04/25/24 18:19 18:20 18:31 MCV 74.1 L MCH 24.5 L MCHC 33.1 RDW 18.8 H Plt Count 364 D MPV 9.6 Immature Gran % (Auto) 0.4 Neut % (Auto) 86.0 H Lymph % (Auto) 8.8 L [place] % (Auto) 4.2 Eos % (Auto) 0.1 Baso % (Auto) 0.5 Lymph # (Auto) 1.7 [place] # (Auto) 0.8 Eos # (Auto) 0.0 Baso # (Auto) 0.1 Abs Immat Gran (auto) 0.08 H Absolute Neuts (auto) 16.3 H Absolute Nucleated RBC 0.000 Nucleated RBC % (auto) 0.0 Smear Tech's Comments PT 10.0 L INR 0.8 L APTT 28.5 Anion Gap 25 H Estim Creat Clear Calc 41.1 Estimated GFR 38 POC Glucose 250 H Random Glucose 262 H Lactic Acid 7.3 H* Lactic Acid F/U @ 2Hr Lactic Acid F/U @ 4Hr Calcium 9.3 Total Bilirubin 0.2 Direct Bilirubin < 0.2 AST 14 ALT 13 Alkaline Phosphatase 108 Troponin I High Sens 5.2 B-Natriuretic Peptide 36 Total Protein 8.0 Albumin 4.3 Lipase 49 Urine Color Urine Appearance Urine pH Ur Specific [place] Urine Protein Urine Glucose (UA) Urine Ketones Urine Blood Urine Nitrite Ur Leukocyte Esterase Urine RBC Urine WBC Ur Squamous Epith Cells Urine Bacteria Hyaline Casts Stool Occult Blood Influenza Type A (PCR) NEGATIVE Influenza Type B (PCR) NEGATIVE RSV RNA Qual (PCR) NEGATIVE SARS-CoV-2 RNA (RT-PCR) NEGATIVE Blood Type Antibody Screen 04/25/24 04/25/24 04/25/24 20:43 21:51 21:54 MCV 73.0 L MCH 24.2 L MCHC 33.2 RDW 18.2 H Plt Count 310 MPV 9.5 Immature Gran % (Auto) 0.5 H Neut % (Auto) 95.2 H Lymph % (Auto) 3.1 L [place] % (Auto) 0.7 L Eos % (Auto) 0.3 Baso % (Auto) 0.2 Lymph # (Auto) 0.7 L [place] # (Auto) 0.1 Eos # (Auto) 0.1 Baso # (Auto) 0.1 Abs Immat Gran (auto) 0.10 H Absolute Neuts (auto) 20.0 H Absolute Nucleated RBC 0.000 Nucleated RBC % (auto) 0.0 Smear Tech's Comments VERIFIED PT INR APTT Anion Gap Estim Creat Clear Calc Estimated GFR POC Glucose Random Glucose Lactic Acid Lactic Acid F/U @ 2Hr 5.1 H* Lactic Acid F/U @ 4Hr Calcium Total Bilirubin Direct Bilirubin AST ALT Alkaline Phosphatase Troponin I High Sens B-Natriuretic Peptide Total Protein Albumin Lipase Urine Color Urine Appearance Urine pH Ur Specific [place] Urine Protein Urine Glucose (UA) Urine Ketones Urine Blood Urine Nitrite Ur Leukocyte Esterase Urine RBC Urine WBC Ur Squamous Epith Cells Urine Bacteria Hyaline Casts Stool Occult Blood POSITIVE Influenza Type A (PCR) Influenza Type B (PCR) RSV RNA Qual (PCR) SARS-CoV-2 RNA (RT-PCR) Blood Type B Positive Antibody Screen NEGATIVE 04/26/24 04/26/24 00:05 00:14 MCV MCH MCHC RDW Plt Count MPV Immature Gran % (Auto) Neut % (Auto) Lymph % (Auto) [place] % (Auto) Eos % (Auto) Baso % (Auto) Lymph # (Auto) [place] # (Auto) Eos # (Auto) Baso # (Auto) Abs Immat Gran (auto) Absolute Neuts (auto) Absolute Nucleated RBC Nucleated RBC % (auto) Smear Tech's Comments PT INR APTT Anion Gap Estim Creat Clear Calc Estimated GFR POC Glucose Random Glucose Lactic Acid Lactic Acid F/U @ 2Hr Lactic Acid F/U @ 4Hr 2.1 H* Calcium Total Bilirubin Direct Bilirubin AST ALT Alkaline Phosphatase Troponin I High Sens B-Natriuretic Peptide Total Protein Albumin Lipase Urine Color Yellow Urine Appearance Clear Urine pH 5.0 Ur Specific [place] 1.010 Urine Protein 300 (3+) H Urine Glucose (UA) Negative Urine Ketones Trace Urine Blood Trace H Urine Nitrite Negative Ur Leukocyte Esterase Trace H Urine RBC 0-2 Urine WBC 0-5 Ur Squamous Epith Cells 0-2 Urine Bacteria None Seen Hyaline Casts 6-10 Stool Occult Blood Influenza Type A (PCR) Influenza Type B (PCR) RSV RNA Qual (PCR) SARS-CoV-2 RNA (RT-PCR) Blood Type Antibody Screen Imaging Radiologist's Impressions: Impressions Abdomen/Pelvis CT 04/25/24 19:30 IMPRESSION: No acute abnormality CT scan abdomen pelvis. Fleischner guidelines were followed. Chest CT 04/25/24 19:30 IMPRESSION: 1. The lungs are clear. 2. The mid through distal thoracic esophagus has thickened moore. Consider direct visualization. Fleischner guidelines were followed. Assessment and Plan (1) Upper GI bleeding: Status: Acute (2) KELVIN (acute kidney injury): Status: Acute Plan Ciara Quiroga is a 48 y/o man admitted with: * Severe epigastric pain associated with coffee-ground vomiting/upper GI bleeding. Likely secondary to erosive gastritis and/or esophagitis due to alcohol consumption; PUD and AVM are in DDx. Admit to hospitalist service. Keep NPO. Continue IV fluids. Continue to monitor H&H and transfuse PRBC as needed (hemodynamically instability, significant drop of H&H or H&H less than 7). Continue Protonix IV infusion. Pain control with Dilaudid IV as needed. GI consult -Dr. Aaron contacted by ED. * Lactic acidosis likely secondary to above, decreasing. Continue IV fluids. Continue to monitor lactic acid level. * Acute kidney injury. Likely multifactorial: Vomiting, poor p.o. intake + Lasix IV. Continue IV fluids. Continue to monitor renal function. * High anion gap metabolic acidosis likely multifactorial: KELVIN + lactic acidosis. Continue IV fluids. Continue to monitor bicarb and anion gap. Check venous pH. * Alcohol abuse. CIWA. Thiamine IV. Folic acid multivitamin when able. Start phenobarbital. * COPD. Not in acute exacerbation. Albuterol nebs as needed. Oxygen. * Type 2 diabetes mellitus. BG checks every 6 hours while NPO. Insulin sliding scale. * Essential hypertension. Labetalol IV prn SBP >170. * YARELIS. Nocturnal CPAP (avoid if pt is vomiting or or nauseous). DVT prophylaxis: SCDs Code status: Full Patient will need hospitalization for at least 2 midnights for upper GI bleeding treatment with IV fluids, PPI IV infusion evaluation by GI for EGD. Quality Stroke Does the patient have a stroke diagnosis?: No VTE Prior VTE?: No VTE Risk Level:: Medical - moderate - high VTE Device Contraindication: N/A - Device Ordered VTE Drug Contraindication: Treatment Not Indicated
[2024-04-26] MEDS: Lactated Ringers 1,000 ML 999 ML IV (01:21)
[2024-04-26] MEDS: Thiamine HCL 100 MG in 0.9 % Sodium Chloride 100 ML 202 MG IV ×2 (01:21→09:23)
[2024-04-26 01:26] LABS: Basophils Percent Auto 0.2 % (0-2); Eosinophils Percent Auto 0.2 % (0-4); Hematocrit 39.5 % (42.0-52.0); Hemoglobin 13.1 g/dl (14.0-18.0); Imm Gran Abs Auto 0.14 X10*3/uL (0.00-0.03); Imm Gran Pct Auto 0.7 % (0.0-0.4); Lymphocytes Absolute Auto 0.6 X10*3/uL (1.2-4.9); Lymphocytes Percent Auto 2.9 % (20-40); Mean Corpuscular HGB Conc 33.2 g/dl (31.0-36.0); Mean Corpuscular Hemoglobin 24.3 pg (27.0-33.0); Mean Corpuscular Volume 73.4 fL (80.0-98.0); Mean Platelet Volume 9.2 fL (9.4-12.4); Monocytes Absolute Auto 0.1 X10*3/uL (0.1-1.2); Monocytes Percent Auto 0.4 % (2-11); Neutrophils Absolute Auto 19.3 x10*3/uL (2.0-8.3); Neutrophils Percent Auto 95.6 % (45-73); Platelet Count 328 X10*3/uL (160-400); Red Blood Count 5.38 X10*6/uL (4.60-5.80); Red Cell Distribution Width 18.6 % (11.0-16.0); SCAN SMEAR FLAG 1; White Blood Count 20.2 X10*3/uL (4.8-10.8)
[2024-04-26 01:28] LABS: MANUAL DIFF FLAG SCAN
[2024-04-26] MEDS: HYDROmorphone HCl 2 MG/ML VIAL IVPUSH (01:29)
[2024-04-26] MEDS: PHENobarbitaL sodium 130 MG/ML IM ONCE 245 MG IM (01:37)
[2024-04-26 01:45] LABS: Magnesium 2.2 mg/dL (1.6-2.6)
[2024-04-26 01:50] LABS: VBG Base Excess -4.5 mmol/L; VBG HCO3 18 mmol/L (22-26); VBG pCO2 26 mmHg; VBG pH 7.43 (7.32-7.43); VBG pO2 134 mmHg
[2024-04-26 01:55] LABS: Venous Blood Gas Refer to POC result
[2024-04-26 02:07] LABS: Alanine Aminotransferase 16 U/L (0-40); Albumin Level 4.4 g/dL (3.5-5.0); Alkaline Phosphatase 113 U/L (39-117); Anion Gap 20 (12-20); Aspartate Amino Transferase 15 U/L (5-37); Bilirubin Total 0.3 mg/dL (0.0-1.0); Blood Urea Nitrogen 32 mg/dL (9-16); Calcium 8.8 mg/dL (8.4-10.2); Carbon Dioxide 16 mmol/L (22-29); Chloride 110 mmol/L (96-108); Creatinine Clr Calc Pharmacy 42.5; Estimated Glomerular Filt Rate 40; Glucose Random 326 mg/dL (60-115); Lipase 29 U/L (8-78); Magnesium 2.2 mg/dL (1.6-2.6); Potassium 4.7 mmol/L (3.3-5.1); Sodium 141 mmol/L (135-145)
--- NOTE | 2024-04-26 03:21 | PC.NURSE ---
pt now resting comfortably at this time, rating pain lower than earlier, no longer rolling side to side in pain on the bed or diaphoretic. pt uses urinal at bedside. 20g IVs to R forearm and LAC. BP was 211/80 when in 07/09 pain rolling side to side on the bed, MD aware, now resting with BP158/86. labetalol held per .
[2024-04-26] MEDS: 0.9 % Sodium Chloride 1,000 ML 100 ML IVCONT ×2 (05:23→16:46)
[2024-04-26] MEDS: PHENobarbitaL sodium 130 MG/ML VIAL IM Q3Hx2 184 MG IM ×2 (05:30→09:24)
[2024-04-26 05:32] LABS: Glucose, Whole Blood 298 mg/dL (60-115)
[2024-04-26] MEDS: Insulin Lispro 100 UNIT/ML 3 ML VIAL SUBCUT ×3 (05:35→23:18)
[2024-04-26 06:29] LABS: Hematocrit 35.6 % (42.0-52.0); Hemoglobin 11.6 g/dl (14.0-18.0); Mean Corpuscular HGB Conc 32.6 g/dl (31.0-36.0); Mean Corpuscular Hemoglobin 24.2 pg (27.0-33.0); Mean Corpuscular Volume 74.3 fL (80.0-98.0); Mean Platelet Volume 9.9 fL (9.4-12.4); Platelet Count 284 X10*3/uL (160-400); Red Blood Count 4.79 X10*6/uL (4.60-5.80); Red Cell Distribution Width 18.6 % (11.0-16.0); White Blood Count 14.8 X10*3/uL (4.8-10.8)
[2024-04-26 06:37] LABS: Alanine Aminotransferase 13 U/L (0-40); Albumin Level 3.7 g/dL (3.5-5.0); Alkaline Phosphatase 96 U/L (39-117); Anion Gap 15 (12-20); Aspartate Amino Transferase 14 U/L (5-37); Bilirubin Total 0.2 mg/dL (0.0-1.0); Blood Urea Nitrogen 29 mg/dL (9-16); Calcium 8.2 mg/dL (8.4-10.2); Carbon Dioxide 19 mmol/L (22-29); Chloride 111 mmol/L (96-108); Creatinine Clr Calc Pharmacy 53.3; Estimated Glomerular Filt Rate 52; Glucose Random 309 mg/dL (60-115); Potassium 4.7 mmol/L (3.3-5.1); Sodium 140 mmol/L (135-145); Total Protein 6.7 g/dL (6.5-8.0)
--- NOTE | 2024-04-26 07:15 | P.CNGI_ITS ---
History of Present Illness Data of Consult Service Date: 04/26/24 Requesting physician: Samantha Chowdhury Primary Care Provider: Zari Henry MD HPI Reason for consult: anemia 48 year old man with hx of alcohol abuse, erosive esophagitis, gastritis, COPD, essential hypertension and type 2 diabetes mellitus who I am seeing for assessment for abdominal pain and anemia. patient noted 1 d hx of severe sharp epigastric pain radiating into the chest, 10/10 associated with coffee ground emesis--the pain started after he had several bouts of vomiting. No exacerbating factors, pain relieved by analgesia given in hospital. Since admission he has not had further emesis and pain has improved. Denied shortness of breath, cough, diarrhea, fever or chills. He continues to drink alcohol and smoke and had drank 1 pint of vodka and several beers before sx started. denies nsaid use except for aspirin use. last EGD 2021 with erosive gastritis, gastritis and hiatal hernia. LABS: leukocytosis of 19, hemoglobin 12.4 and platelets are normal. INR is 0.8. Glucose 250, CO2 is 14, BUN 32 and creatinine of 1.88 (prior 1.26). Initial lactic acid was 7.3. LFTs are normal. IMAGING: Chest, abdomen pelvis CT scan: distal thoracic esophagus thickening-distended stomach, atherosclerosis pacnreatic calcifications Review of Systems 2 Review of Systems: Constitutional : No Weight loss, No Fever, No Chills ENT/Mouth : No sore throat, No Rhinorrhea Eyes: No Swelling, No Redness Cardiovascular : No Chest Pain, No SOB, No Edema Respiratory : No Cough, No Sputum, No Wheezing Gastrointestinal : see HPI Genitourinary : NO Dysuria, No Urinary Frequency, No Hematuria, No Urgency Musculoskeletal : + joint pain, No Myalgias, No Joint Swelling Skin : No Skin Lesions, No rash Neuro : No Weakness, No Numbness, No Dizziness, No Headache Psych : No Anxiety/Panic, No Depression Heme/Lymph: No Bruising, No Lymphadenopathy Endocrine : No Polyuria, No Polydipsia All other systems reviewed and are negative. [facility] Past Medical History Medical History (Updated 04/26/24 @ 16:10 by Marielle Aaron MD) KELVIN (acute kidney injury) Hypertension Chronic heart failure with preserved ejection fraction (HFpEF) Acute respiratory failure with hypoxia Congestive heart failure CKD (chronic kidney disease) stage 1, GFR 90 ml/min or greater Depression COPD exacerbation YARELIS (obstructive sleep apnea) CHF exacerbation Hypoxia Acute respiratory failure Uncontrolled hypertension Acute on chronic diastolic (congestive) heart failure Acute on chronic anemia Hyperglycemia due to type 2 diabetes mellitus YARELIS (obstructive sleep apnea) Congestive heart failure Anxiety HLD (hyperlipidemia) Diabetes Hypercholesteremia HTN (hypertension) Asthma PAD (peripheral artery disease) Family History Family History Father Alzheimer disease CAD (coronary artery disease) Surgical History Surgical History S/P angiogram of extremity Social History Social History Household Members: Family Household Members Other:: girlfriend Housing: Apartment Do you presently have visiting nurse or other home services: No Unable to assess alcohol history related to: Unknown Alcohol intake: never Comment: low fall risk Patient Tobacco Use Status: Current everyday Tobacco user Tobacco use type: Cigarette Cigarettes Per Day: 5 Years Smoked: >30 e-Cigarette/Vaping Use: Never Used Second Hand Smoke Exposure: Yes Substance Use Type: Marijuana Advance Directives Date on File: 06/21/21 service: No Current occupational status: disabled Meds Allergies Allergy/AdvReac Type Severity Reaction Status Date / Time dulaglutide [[facility]] Allergy Unknown Verified 04/25/24 17:13 metformin [METFORMIN] AdvReac Mild DIARRHEA, Verified 04/25/24 17:13 nausea and vomiting Active Medications: Current Medications Albuterol Sulfate (Albuterol Sulfate (0.083%) 2.5 Mg/3 Ml Vial.Neb) 2.5 mg INHALE Q2H PRN PRN Reason: Shortness of Breath/Wheezing Glucose (Glucose Gel 15 Gm Gel..Gram.) 15 gm PO Q15M PRN; Protocol PRN Reason: per Hypoglycemia Standing Ord. Pantoprazole Sodium 80 mg/ (Sodium Chloride) 100 mls @ 10 mls/hr IV .Q10H DIONISIO Last Admin: 04/25/24 21:40 Dose: 8 mg/hr, 10 mls/hr Thiamine HCl 100 mg/ Sodium (Chloride) 101 mls @ 202 mls/hr IV DAILY DIONISIO Sodium Chloride (Ns) 1,000 mls @ 100 mls/hr IVCONT .Q10H DIONISIO Last Admin: 04/26/24 05:23 Dose: 100 mls/hr Dextrose (D10) 250 mls @ 750 mls/hr IV Q15M PRN; Protocol PRN Reason: per Hypoglycemia Standing Ord. Insulin Human Lispro (Insulin Lispro 100 Unit/Ml 3 Ml Vial) 0 unit SUBCUT Q6H [facility]; Protocol Last Admin: 04/26/24 05:35 Dose: 6 unit Labetalol HCl (Labetalol Hcl 100 Mg/20 Ml Vial) 10 mg IVPUSH Q4H PRN PRN Reason: SBP > 170 Phenobarbital (Phenobarbital 15 Mg Tablet) 45 mg PO BID [facility]; Protocol Stop: 04/27/24 21:01 Sodium Chloride (0.9 % Sodium Chloride Flush 3 Ml Syringe) 3 ml IVFLUSH QSHIFT [facility] Home Medications ?Medication ?Instructions ?Recorded ?Confirmed ?Last Taken ?Type escitalopram oxalate 10 mg tablet 10 mg PO DAILY 08/01/22 04/26/24 12/21/23 History trazodone 50 mg tablet 100 mg PO BEDTIME 08/01/22 04/26/24 12/21/23 History aspirin 81 mg tablet,delayed 81 mg PO DAILY 10/06/22 04/26/24 12/21/23 History release atorvastatin 40 mg tablet 40 mg PO DAILY 10/06/22 04/26/24 12/21/23 History gabapentin 300 mg capsule 300 mg PO TID 10/06/22 04/26/24 12/21/23 History metoprolol succinate 100 mg 100 mg PO DAILY 10/06/22 04/26/24 12/21/23 History tablet,extended release 24 hr omeprazole 40 mg capsule,delayed 40 mg PO DAILY@0630 10/06/22 04/26/24 12/21/23 History release furosemide 40 mg tablet 80 mg PO DAILY 06/26/23 04/26/24 12/21/23 History insulin glargine 100 unit/mL (3 27 unit subcut BEDTIME PRN 06/26/23 02/20/24 12/21/23 History mL) subcutaneous pen (Lantus Hyperglycemia Solostar U-100 Insulin) furosemide 40 mg tablet 40 mg PO BEDTIME 11/24/23 04/26/24 12/21/23 History fluticasone 250 mcg-salmeterol 50 1 ea inhalation BID 12/22/23 04/26/24 12/21/23 History mcg/dose blistr powdr for inhalation (Advair Diskus) multivitamin 1 tab PO DAILY 12/22/23 04/26/24 12/21/23 History albuterol sulfate 90 mcg/actuation 2 puff inhalation Q4H PRN 04/26/24 04/26/24 Unknown History aerosol inhaler bronchospasm insulin lispro 100 unit/mL 10 - 14 unit subcut TID 04/26/24 04/26/24 Unknown History subcutaneous solution Physical Exam 2 Vital Signs: Vital Signs: Last Vital Signs Temp 97.9 F 04/26/24 07:04 Pulse 98 04/26/24 07:04 Resp 20 04/26/24 07:04 BP 179/91 H 04/26/24 07:04 Pulse Ox 99 04/26/24 07:04 O2 Del Method Nasal Cannula 04/26/24 07:04 O2 Flow Rate 4 04/25/24 22:59 BMI result Body Mass Index 22.5 EXAM: GENERAL: The patient is well developed and nontoxic. VITAL SIGNS:see workflow HEENT: Nonicteric sclerae, PERRLA, EOMI. Oropharynx clear. Moist mucous membranes. Conjunctivae appear well perfused. No thyroid mass. CHEST: Chest wall is nontender. HEART: Regular rate and rhythm without murmurs. LUNGS: Clear to auscultation bilaterally. ABDOMEN: Soft, positive bowel sounds, mildly tender epigastrium, no organomegaly.no flank tenderness SKIN: No rash, no excessive bruising, petechiae, or purpura. NEUROLOGIC: Cranial nerves II-XII intact without motor/sensory deficit. Psych: normal affect Results Labs 04/26/24 06:01 04/26/24 06:01 Labs: Short CBC 04/25/24 04/25/24 04/26/24 Range/Units 18:20 21:51 01:21 WBC 19.0 H 21.0 H 20.2 H (4.8-10.8) X10*3/uL Hgb 13.6 L 12.4 L 13.1 L (14.0-18.0) g/dl Hct 41.1 L 37.4 L 39.5 L (42.0-52.0) % Plt Count 364 D 310 328 (160-400) X10*3/uL 04/26/24 Range/Units 06:01 WBC 14.8 H (4.8-10.8) X10*3/uL Hgb 11.6 L (14.0-18.0) g/dl Hct 35.6 L (42.0-52.0) % Plt Count 284 (160-400) X10*3/uL BMP 04/25/24 04/26/24 04/26/24 18:19 01:21 06:01 Sodium 140 141 140 Potassium 3.8 4.7 D 4.7 Chloride 105 110 H 111 H Carbon Dioxide 14 L 16 L 19 L BUN 32 H 32 H 29 H Creatinine 1.88 H 1.82 H 1.45 H Calcium 9.3 8.8 8.2 L D Liver Function 04/25/24 04/26/24 04/26/24 Range/Units 18:19 01:21 06:01 Total Bilirubin 0.2 0.3 0.2 (0.0-1.0) mg/dL Direct Bilirubin < 0.2 (0.0-0.5) mg/dL AST 14 15 14 (5-37) U/L ALT 13 16 13 (0-40) U/L Alkaline Phosphatase 108 113 96 (39-117) U/L Albumin 4.3 4.4 3.7 (3.5-5.0) g/dL Urine 04/26/24 Range/Units 00:05 Urine Color Yellow Urine Appearance Clear Urine pH 5.0 (5.0-9.0) Ur Specific [place] 1.010 (1.005-1.025) Urine Protein 300 (3+) H (Neg-Trace) mg/dL Urine Glucose (UA) Negative (Negative) mg/dL Assessment and Plan (1) Hematemesis: Qualifiers: Nausea presence: with nausea Qualified Code(s): K92.0 - Hematemesis Status: Acute Plan 1/ Hematemesis and anemia with background of alcohol use and aspirin. Seems to be stable at this time. Likely has alcoholic gastritis and esophagitis possible MW tear as well PLAN: 1/ High dose PPI< can add magic mouthwash QID 2/allow clears and advance diet 3/ If sx persist or HGB downtrending then EGD this admission, otherwise if improves then early o/p--tentatively on schedule for Monday PM if he is still here over the weekend 4/ check iron, ferritin and folate/b12 Procedures Date of Service Date of Service: 04/26/24
--- NOTE | 2024-04-26 08:43 | MHC.CM.PN ---
CM met with Patient at bedside. 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 Home/self care is the goal and CM has initiated and will follow for dc planning. PCP is Dr. Zari Henry and Patient's Girlfriend/Margine is the HCP.
[2024-04-26] MEDS: 0.9 % Sodium Chloride Flush 3 ML SYRINGE IVFLUSH ×3 (09:18→20:43)
[2024-04-26] MEDS: Pantoprazole Sodium 80 MG in 0.9 % Sodium Chloride 80 ML 8 MG IV (09:25)
--- NOTE | 2024-04-26 09:52 | HO.PM.IMPN ---
Subjective Subjective Date of Service: 04/26/24 Interval History: seen and examined reports improvement in pain reports weakness would like some ice / water Physical Exam Vital Signs: Vital Signs: Last Vital Signs Temp 97.4 F 04/26/24 07:42 Pulse 83 04/26/24 07:42 Resp 18 04/26/24 07:42 BP 183/81 H 04/26/24 07:42 Pulse Ox 97 04/26/24 07:42 O2 Del Method Nasal Cannula 04/26/24 07:42 O2 Flow Rate 3 04/26/24 07:42 BMI result Body Mass Index 22.5 Const: Other: General - no acute distress, appears comfortable Cardiovascular - regular rate and rhythm, S1-S2 Lungs - normal respiratory effort, clear to auscultation bilaterally, no wheezing Abdomen - soft, non-tender Extremities - no edema bilaterally Neuro - awake and alert, no focal deficits Objective Data Active Medications Albuterol Sulfate (Albuterol Sulfate (0.083%) 2.5 Mg/3 Ml Vial.Neb) 2.5 mg INHALE Q2H PRN PRN Reason: Shortness of Breath/Wheezing Glucose (Glucose Gel 15 Gm Gel..Gram.) 15 gm PO Q15M PRN; Protocol PRN Reason: per Hypoglycemia Standing Ord. Thiamine HCl 100 mg/ Sodium (Chloride) 101 mls @ 202 mls/hr IV DAILY [facility] Last Admin: 04/26/24 09:23 Dose: 202 mls/hr Documented By: CONNER Sodium Chloride (Ns) 1,000 mls @ 100 mls/hr IVCONT .Q10H [facility] Last Admin: 04/26/24 05:23 Dose: 100 mls/hr Documented By: THIERRY Dextrose (D10) 250 mls @ 750 mls/hr IV Q15M PRN; Protocol PRN Reason: per Hypoglycemia Standing Ord. Insulin Human Lispro (Insulin Lispro 100 Unit/Ml 3 Ml Vial) 0 unit SUBCUT Q6H [facility]; Protocol Last Admin: 04/26/24 09:25 Dose: 6 unit Documented By: CONNER Labetalol HCl (Labetalol Hcl 100 Mg/20 Ml Vial) 10 mg IVPUSH Q4H PRN PRN Reason: SBP > 170 Lidocaine/Diphenhydr/Alum/Mg/Simeth (Mag&Al/Sim/Diphenhyd/Lidocaine 10 Ml Oral.Susp) 10 ml PO Q6H PRN; Protocol PRN Reason: mouth or throat pain Pantoprazole Sodium (Pantoprazole Sodium 40 Mg/10 Ml Vial) 40 mg IVPUSH BID@0630,1630 [facility] Phenobarbital (Phenobarbital 15 Mg Tablet) 45 mg PO BID [facility]; Protocol Stop: 04/27/24 21:01 Sodium Chloride (0.9 % Sodium Chloride Flush 3 Ml Syringe) 3 ml IVFLUSH QSHIFT [facility] Last Admin: 04/26/24 09:18 Dose: 3 ml Documented By: CONNER Labs 04/26/24 06:01 04/26/24 06:01 Labs: Laboratory Results - last 24 hr 04/25/24 04/25/24 04/25/24 18:19 18:20 18:31 MCV 74.1 L MCH 24.5 L MCHC 33.1 RDW 18.8 H Plt Count 364 D MPV 9.6 Immature Gran % (Auto) 0.4 Neut % (Auto) 86.0 H Lymph % (Auto) 8.8 L [place] % (Auto) 4.2 Eos % (Auto) 0.1 Baso % (Auto) 0.5 Lymph # (Auto) 1.7 [place] # (Auto) 0.8 Eos # (Auto) 0.0 Baso # (Auto) 0.1 Abs Immat Gran (auto) 0.08 H Absolute Neuts (auto) 16.3 H Absolute Nucleated RBC 0.000 Nucleated RBC % (auto) 0.0 Smear Tech's Comments PT 10.0 L INR 0.8 L APTT 28.5 VBG pH VBG pCO2 VBG pO2 VBG HCO3 VBG O2 Saturation VBG Base Excess Anion Gap 25 H Estim Creat Clear Calc 41.1 Estimated GFR 38 POC Glucose 250 H Random Glucose 262 H Lactic Acid 7.3 H* Lactic Acid F/U @ 2Hr Lactic Acid F/U @ 4Hr Calcium 9.3 Magnesium Total Bilirubin 0.2 Direct Bilirubin < 0.2 AST 14 ALT 13 Alkaline Phosphatase 108 Troponin I High Sens 5.2 B-Natriuretic Peptide 36 Total Protein 8.0 Albumin 4.3 Lipase 49 Urine Color Urine Appearance Urine pH Ur Specific [place] Urine Protein Urine Glucose (UA) Urine Ketones Urine Blood Urine Nitrite Ur Leukocyte Esterase Urine RBC Urine WBC Ur Squamous Epith Cells Urine Bacteria Hyaline Casts Stool Occult Blood Influenza Type A (PCR) NEGATIVE Influenza Type B (PCR) NEGATIVE RSV RNA Qual (PCR) NEGATIVE SARS-CoV-2 RNA (RT-PCR) NEGATIVE Blood Type Antibody Screen 04/25/24 04/25/24 04/25/24 20:43 21:51 21:54 MCV 73.0 L MCH 24.2 L MCHC 33.2 RDW 18.2 H Plt Count 310 MPV 9.5 Immature Gran % (Auto) 0.5 H Neut % (Auto) 95.2 H Lymph % (Auto) 3.1 L [place] % (Auto) 0.7 L Eos % (Auto) 0.3 Baso % (Auto) 0.2 Lymph # (Auto) 0.7 L [place] # (Auto) 0.1 Eos # (Auto) 0.1 Baso # (Auto) 0.1 Abs Immat Gran (auto) 0.10 H Absolute Neuts (auto) 20.0 H Absolute Nucleated RBC 0.000 Nucleated RBC % (auto) 0.0 Smear Tech's Comments VERIFIED PT INR APTT VBG pH VBG pCO2 VBG pO2 VBG HCO3 VBG O2 Saturation VBG Base Excess Anion Gap Estim Creat Clear Calc Estimated GFR POC Glucose Random Glucose Lactic Acid Lactic Acid F/U @ 2Hr 5.1 H* Lactic Acid F/U @ 4Hr Calcium Magnesium Total Bilirubin Direct Bilirubin AST ALT Alkaline Phosphatase Troponin I High Sens B-Natriuretic Peptide Total Protein Albumin Lipase Urine Color Urine Appearance Urine pH Ur Specific [place] Urine Protein Urine Glucose (UA) Urine Ketones Urine Blood Urine Nitrite Ur Leukocyte Esterase Urine RBC Urine WBC Ur Squamous Epith Cells Urine Bacteria Hyaline Casts Stool Occult Blood POSITIVE Influenza Type A (PCR) Influenza Type B (PCR) RSV RNA Qual (PCR) SARS-CoV-2 RNA (RT-PCR) Blood Type B Positive Antibody Screen NEGATIVE 04/26/24 04/26/24 04/26/24 00:05 00:14 01:21 MCV 73.4 L MCH 24.3 L MCHC 33.2 RDW 18.6 H Plt Count 328 MPV 9.2 L Immature Gran % (Auto) 0.7 H Neut % (Auto) 95.6 H Lymph % (Auto) 2.9 L [place] % (Auto) 0.4 L Eos % (Auto) 0.2 Baso % (Auto) 0.2 Lymph # (Auto) 0.6 L [place] # (Auto) 0.1 Eos # (Auto) 0.0 Baso # (Auto) 0.0 Abs Immat Gran (auto) 0.14 H Absolute Neuts (auto) 19.3 H Absolute Nucleated RBC 0.000 Nucleated RBC % (auto) 0.0 Smear Tech's Comments PT INR APTT VBG pH VBG pCO2 VBG pO2 VBG HCO3 VBG O2 Saturation VBG Base Excess Anion Gap 20 Estim Creat Clear Calc 42.5 Estimated GFR 40 POC Glucose Random Glucose 326 H Lactic Acid Lactic Acid F/U @ 2Hr Lactic Acid F/U @ 4Hr 2.1 H* Calcium 8.8 Magnesium 2.2 Total Bilirubin Direct Bilirubin AST ALT Alkaline Phosphatase Troponin I High Sens B-Natriuretic Peptide Total Protein Albumin Lipase Urine Color Yellow Urine Appearance Clear Urine pH 5.0 Ur Specific [place] 1.010 Urine Protein 300 (3+) H Urine Glucose (UA) Negative Urine Ketones Trace Urine Blood Trace H Urine Nitrite Negative Ur Leukocyte Esterase Trace H Urine RBC 0-2 Urine WBC 0-5 Ur Squamous Epith Cells 0-2 Urine Bacteria None Seen Hyaline Casts 6-10 Stool Occult Blood Influenza Type A (PCR) Influenza Type B (PCR) RSV RNA Qual (PCR) SARS-CoV-2 RNA (RT-PCR) Blood Type Antibody Screen 04/26/24 04/26/24 04/26/24 01:21 01:38 05:28 MCV MCH MCHC RDW Plt Count MPV Immature Gran % (Auto) Neut % (Auto) Lymph % (Auto) [place] % (Auto) Eos % (Auto) Baso % (Auto) Lymph # (Auto) [place] # (Auto) Eos # (Auto) Baso # (Auto) Abs Immat Gran (auto) Absolute Neuts (auto) Absolute Nucleated RBC Nucleated RBC % (auto) Smear Tech's Comments PT INR APTT VBG pH 7.43 VBG pCO2 26 VBG pO2 134 VBG HCO3 18 L VBG O2 Saturation 99.0 VBG Base Excess -4.5 Anion Gap Estim Creat Clear Calc Estimated GFR POC Glucose 298 H Random Glucose Lactic Acid Lactic Acid F/U @ 2Hr Lactic Acid F/U @ 4Hr Calcium Magnesium 2.2 Total Bilirubin 0.3 Direct Bilirubin AST 15 ALT 16 Alkaline Phosphatase 113 Troponin I High Sens B-Natriuretic Peptide Total Protein 8.0 Albumin 4.4 Lipase 29 Urine Color Urine Appearance Urine pH Ur Specific [place] Urine Protein Urine Glucose (UA) Urine Ketones Urine Blood Urine Nitrite Ur Leukocyte Esterase Urine RBC Urine WBC Ur Squamous Epith Cells Urine Bacteria Hyaline Casts Stool Occult Blood Influenza Type A (PCR) Influenza Type B (PCR) RSV RNA Qual (PCR) SARS-CoV-2 RNA (RT-PCR) Blood Type Antibody Screen 04/26/24 06:01 MCV 74.3 L MCH 24.2 L MCHC 32.6 RDW 18.6 H Plt Count 284 MPV 9.9 Immature Gran % (Auto) Neut % (Auto) Lymph % (Auto) [place] % (Auto) Eos % (Auto) Baso % (Auto) Lymph # (Auto) [place] # (Auto) Eos # (Auto) Baso # (Auto) Abs Immat Gran (auto) Absolute Neuts (auto) Absolute Nucleated RBC 0.000 Nucleated RBC % (auto) 0.0 Smear Tech's Comments PT INR APTT VBG pH VBG pCO2 VBG pO2 VBG HCO3 VBG O2 Saturation VBG Base Excess Anion Gap 15 Estim Creat Clear Calc 53.3 Estimated GFR 52 POC Glucose Random Glucose 309 H Lactic Acid Lactic Acid F/U @ 2Hr Lactic Acid F/U @ 4Hr Calcium 8.2 L D Magnesium Total Bilirubin 0.2 Direct Bilirubin AST 14 ALT 13 Alkaline Phosphatase 96 Troponin I High Sens B-Natriuretic Peptide Total Protein 6.7 Albumin 3.7 Lipase Urine Color Urine Appearance Urine pH Ur Specific [place] Urine Protein Urine Glucose (UA) Urine Ketones Urine Blood Urine Nitrite Ur Leukocyte Esterase Urine RBC Urine WBC Ur Squamous Epith Cells Urine Bacteria Hyaline Casts Stool Occult Blood Influenza Type A (PCR) Influenza Type B (PCR) RSV RNA Qual (PCR) SARS-CoV-2 RNA (RT-PCR) Blood Type Antibody Screen Assessment and Plan (1) Upper GI bleeding: Status: Acute Plan 48 yo M admitted for: 1. Suspected acute upper gi bleed IV ppi trend h/h d/w GI -- can start clears, plan for EGD once withdrawal improved / resuscitated, currently pt hemodynamically stable 2. alcohol abuse with high risk for withdrawal on phenobarb per protocol 3. KELVIN likely pre-renal improving with fluids 4. COPD at baseline continue meds 5. DM sliding scale, poc 6h 6. htn start home bp meds - med rec pending will start norvasc 5mg (on 10mg at home per claim history) Full Code DVT pptx -- mechanical due to acute gi bleed Quality Stroke Does the patient have a stroke diagnosis?: No VTE Prior VTE?: No VTE Risk Level:: Medical - moderate - high VTE Device Contraindication: N/A - Device Ordered VTE Drug Contraindication: Treatment Not Indicated
[2024-04-26 11:33] LABS: Glucose, Whole Blood 146 mg/dL (60-115)
--- NOTE | 2024-04-26 11:58 | MHC.RECOVRN ---
AUDIT-C Brief Intervention Pt had positive screen for unhealthy alcohol use on admission, subsequently met with t/w to discuss alcohol use and recovery supports/options. Pt voices concern regarding alcohol use and is aware that drinking at unhealthy levels is known to increase risk of alcohol related health problems. Pt reports 1 pint of vodka every 2-3 days. Pt expresses how alcohol use has impacted health, including negative impact on health including contributing to GI bleed. Discussed risk reduction strategies including drinking below the recommended limit. Provided pt with written resources including information on inpatient and outpatient treatment, TARYN, harm reduction, and recovery coaching. Pt plans to look through resources and reach out to t/w if needed. At this time, pt feels as though he does not need support in his goal of abstinence. Pt provided with t/w contact information if questions or concerns arise. Denies other questions or concerns at this time.
[2024-04-26] MEDS: amLODIPine Besylate 5 MG TABLET PO (13:06)
[2024-04-26] MEDS: PHENobarbitaL 15 MG TABLET 45 MG PO ×2 (13:06→20:42)
--- NOTE | 2024-04-26 13:15 | PHA.MEDREC ---
Pharmacy Consult ? Medication Reconciliation Pharmacy has completed the medication reconciliation, spoke to patient at bedside, pt was able to recall all meds, most doses, frequencies and what he takes them for. Pt was hesitant about his Lantus but states he has an insulin pump that he uses, so that was left unconfirmed, his list match pharmacy claims hx.
[2024-04-26 16:10] LABS: Glucose, Whole Blood 136 mg/dL (60-115)
[2024-04-26] MEDS: Pantoprazole Sodium 40 MG/10 ML VIAL IVPUSH (16:46)
[2024-04-26] MEDS: HYDROmorphone HCl 1 MG/ML SYRINGE IVPUSH (21:23)
[2024-04-26] MEDS: ondansetron HCL 4 MG/2 ML VIAL IVPUSH (21:23)
[2024-04-26 22:51] LABS: Glucose, Whole Blood 173 mg/dL (60-115)
[2024-04-27] VITALS (8 sets, daily range): BP systolic 143–174; BP diastolic 70–81; PULSE 69–86; RESP 18–20; TEMP 36.3–36.9; O2SAT 80–97
[2024-04-27] MEDS: 0.9 % Sodium Chloride 1,000 ML 100 ML IVCONT ×2 (01:58→19:37)
--- NOTE | 2024-04-27 04:55 | PC.NURSE ---
Pt AOx3, able to make needs known. Earlier in this RNs shift, pt c/o pain and nausea (see MAR for med administration). Pt is cooperative and calm, sleeping for the majority of this RNs shift. Pt utilizing urinal. Call harper within reach, bed alarm on. Safety maintained throughout shift.
[2024-04-27 06:04] LABS: Glucose, Whole Blood 112 mg/dL (60-115)
[2024-04-27] MEDS: Pantoprazole Sodium 40 MG/10 ML VIAL IVPUSH ×2 (06:06→16:06)
--- NOTE | 2024-04-27 07:36 | HO.PM.IMPN ---
Subjective Subjective Date of Service: 04/27/24 Physical Exam Vital Signs: Vital Signs: Last Vital Signs Temp 97.3 F 04/27/24 03:25 Pulse 82 04/27/24 03:25 Resp 19 04/27/24 03:25 BP 152/72 H 04/27/24 03:25 Pulse Ox 95 04/27/24 03:25 O2 Del Method Nasal Cannula 04/27/24 03:25 O2 Flow Rate 1 04/27/24 03:25 BMI result Body Mass Index 22.5 Objective Data Active Medications Albuterol Sulfate (Albuterol Sulfate (0.083%) 2.5 Mg/3 Ml Vial.Neb) 2.5 mg INHALE Q2H PRN PRN Reason: Shortness of Breath/Wheezing Amlodipine Besylate (Amlodipine Besylate 5 Mg Tablet) 5 mg PO DAILY [facility]; Protocol Last Admin: 04/26/24 13:06 Dose: 5 mg Documented By: RIOSCEL Glucose (Glucose Gel 15 Gm Gel..Gram.) 15 gm PO Q15M PRN; Protocol PRN Reason: per Hypoglycemia Standing Ord. Hydromorphone HCl (Hydromorphone Hcl 1 Mg/Ml Syringe) 1 mg IVPUSH Q3H PRN; Protocol PRN Reason: Pain, Severe (Pain Scale 7-10) Last Admin: 04/26/24 21:23 Dose: 1 mg Documented By: JOSE L Thiamine HCl 100 mg/ Sodium (Chloride) 101 mls @ 202 mls/hr IV DAILY [facility] Last Infusion: 04/26/24 11:43 Dose: Infused Documented By: CONNER Sodium Chloride (Ns) 1,000 mls @ 100 mls/hr IVCONT .Q10H [facility] Last Admin: 04/27/24 01:58 Dose: 100 mls/hr Documented By: JOSE L Dextrose (D10) 250 mls @ 750 mls/hr IV Q15M PRN; Protocol PRN Reason: per Hypoglycemia Standing Ord. Insulin Human Lispro (Insulin Lispro 100 Unit/Ml 3 Ml Vial) 0 unit SUBCUT Q6H [facility]; Protocol Last Admin: 04/27/24 06:02 Dose: Not Given Documented By: JOSE L Non-Admin Reason: Order parameters not met Comments: 112 Labetalol HCl (Labetalol Hcl 100 Mg/20 Ml Vial) 10 mg IVPUSH Q4H PRN PRN Reason: SBP > 170 Lidocaine/Diphenhydr/Alum/Mg/Simeth (Mag&Al/Sim/Diphenhyd/Lidocaine 10 Ml Oral.Susp) 10 ml PO Q6H PRN; Protocol PRN Reason: mouth or throat pain Ondansetron HCl (Ondansetron Hcl 4 Mg/2 Ml Vial) 4 mg IVPUSH Q8H PRN PRN Reason: Nausea and Vomiting Last Admin: 04/26/24 21:23 Dose: 4 mg Documented By: JOSE L Pantoprazole Sodium (Pantoprazole Sodium 40 Mg/10 Ml Vial) 40 mg IVPUSH BID@0630,1630 [facility] Last Admin: 04/27/24 06:06 Dose: 40 mg Documented By: JOSE L Phenobarbital (Phenobarbital 15 Mg Tablet) 45 mg PO BID [facility]; Protocol Stop: 04/27/24 21:01 Last Admin: 04/26/24 20:42 Dose: 45 mg Documented By: JOSE L Phenobarbital (Phenobarbital 30 Mg Tablet) 30 mg PO BID [facility] Stop: 04/29/24 21:01 Phenobarbital (Phenobarbital 30 Mg Tablet) 30 mg PO DAILY [facility]; Protocol Stop: 05/01/24 09:01 Sodium Chloride (0.9 % Sodium Chloride Flush 3 Ml Syringe) 3 ml IVFLUSH [facility] Last Admin: 04/26/24 20:43 Dose: 3 ml Documented By: JOSE L Labs 04/27/24 07:44 04/27/24 07:44 Labs: Laboratory Results - last 24 hr 04/26/24 04/26/24 04/26/24 11:25 16:06 22:47 POC Glucose 146 H 136 H 173 H 04/27/24 06:01 POC Glucose 112 Microbiology Microbiology Results: Microbiology 04/25/24 19:08 Blood Culture - Preliminary Blood - Venous No growth after 24 hours. 04/25/24 18:20 Blood Culture - Preliminary Blood - Venous No growth after 24 hours. Assessment and Plan (1) Upper GI bleeding: Status: Acute Plan 48 yo M admitted for: 1. Suspected acute upper gi bleed with acute on chronic anemia IV ppi trend h/h d/w GI -- can start clears, plan for EGD once withdrawal improved / resuscitated, currently pt hemodynamically stable 2. alcohol abuse with high risk for withdrawal on phenobarb per protocol, continue ciwa iv thiamine, po folic acid 3. KELVIN- resolved dc ivf resume diuretics am, hold further nephrotoxins follow renal fx/lytes 4. COPD with chronic hypoxemic respiratory failure reports intermittent use of 4L supplemental O2 at baseline, continue per protocol continue meds 5. DM sliding scale, poc 6. htn start home bp meds - med rec pending will start norvasc 5mg (on 10mg at home per claim history) Full Code DVT pptx -- mechanical due to acute gi bleed requires ongoing hospital stay with worsening anemia awaiting egd/colo once alcohol withdrawal improves on phenobarbital per protocol Quality Stroke Does the patient have a stroke diagnosis?: No VTE Prior VTE?: No VTE Risk Level:: Medical - moderate - high VTE Device Contraindication: N/A - Device Ordered VTE Drug Contraindication: Treatment Not Indicated
[2024-04-27 07:58] LABS: Glucose, Whole Blood 141 mg/dL (60-115)
[2024-04-27 08:03] LABS: MANUAL DIFF FLAG NO
[2024-04-27 08:14] LABS: Basophils Absolute Auto 0.1 X10*3/uL (0.0-0.2); Basophils Percent Auto 0.3 % (0-2); Eosinophils Percent Auto 0.1 % (0-4); Hematocrit 32.9 % (42.0-52.0); Hemoglobin 10.6 g/dl (14.0-18.0); Imm Gran Abs Auto 0.08 X10*3/uL (0.00-0.03); Imm Gran Pct Auto 0.5 % (0.0-0.4); Lymphocytes Absolute Auto 1.6 X10*3/uL (1.2-4.9); Lymphocytes Percent Auto 9.6 % (20-40); Mean Corpuscular HGB Conc 32.2 g/dl (31.0-36.0); Mean Corpuscular Hemoglobin 24.6 pg (27.0-33.0); Mean Corpuscular Volume 76.3 fL (80.0-98.0); Mean Platelet Volume 9.7 fL (9.4-12.4); Monocytes Absolute Auto 0.9 X10*3/uL (0.1-1.2); Monocytes Percent Auto 5.1 % (2-11); Neutrophils Absolute Auto 14.1 x10*3/uL (2.0-8.3); Neutrophils Percent Auto 84.4 % (45-73); Platelet Count 235 X10*3/uL (160-400); Red Blood Count 4.31 X10*6/uL (4.60-5.80); Red Cell Distribution Width 18.7 % (11.0-16.0); White Blood Count 16.6 X10*3/uL (4.8-10.8)
[2024-04-27] MEDS: PHENobarbitaL 15 MG TABLET 45 MG PO ×2 (08:19→21:09)
[2024-04-27] MEDS: 0.9 % Sodium Chloride Flush 3 ML SYRINGE IVFLUSH ×2 (08:20→16:07)
[2024-04-27] MEDS: amLODIPine Besylate 5 MG TABLET PO ×2 (08:20→13:43)
[2024-04-27] MEDS: HYDROmorphone HCl 1 MG/ML SYRINGE IVPUSH ×2 (08:20→17:08)
[2024-04-27] MEDS: Thiamine HCL 100 MG in 0.9 % Sodium Chloride 100 ML 202 MG IV (08:22)
[2024-04-27] MEDS: ondansetron HCL 4 MG/2 ML VIAL IVPUSH ×2 (08:22→21:08)
[2024-04-27 08:34] LABS: Anion Gap 13 (12-20); Blood Urea Nitrogen 13 mg/dL (9-16); Calcium 7.7 mg/dL (8.4-10.2); Carbon Dioxide 19 mmol/L (22-29); Chloride 115 mmol/L (96-108); Creatinine Clr Calc Pharmacy 88.9; Estimated Glomerular Filt Rate > 60; Glucose Random 133 mg/dL (60-115); Sodium 143 mmol/L (135-145)
[2024-04-27 10:28] LABS: Glucose, Whole Blood 234 mg/dL (60-115)
[2024-04-27] MEDS: Insulin Lispro 100 UNIT/ML 3 ML VIAL SUBCUT ×2 (10:48→16:06)
[2024-04-27 12:09] LABS: Glucose, Whole Blood 187 mg/dL (60-115)
[2024-04-27] MEDS: Folic Acid 1 MG TABLET PO (13:46)
[2024-04-27 15:56] LABS: Glucose, Whole Blood 159 mg/dL (60-115)
[2024-04-27] MEDS: Sucralfate 1 GM TABLET PO ×2 (16:06→21:09)
[2024-04-27] MEDS: hydrALAZINE HCl 50 MG TABLET 100 MG PO ×2 (16:06→21:13)
[2024-04-27] MEDS: Magnesium Oxide 400 MG TABLET PO (17:08)
[2024-04-27] MEDS: traZODone HCL 100 MG TABLET PO (21:09)
[2024-04-27 21:24] LABS: Glucose, Whole Blood 76 mg/dL (60-115)
[2024-04-28] VITALS (11 sets, daily range): BP systolic 132–174; BP diastolic 59–86; PULSE 67–98; RESP 15–20; TEMP 36.3–36.9; O2SAT 93–98
[2024-04-28] MEDS: 0.9 % Sodium Chloride Flush 3 ML SYRINGE IVFLUSH ×3 (00:06→15:00)
[2024-04-28 04:11] LABS: Glucose, Whole Blood 120 mg/dL (60-115)
[2024-04-28] MEDS: HYDROmorphone HCl 1 MG/ML SYRINGE IVPUSH (04:11)
[2024-04-28] MEDS: Pantoprazole Sodium 40 MG/10 ML VIAL IVPUSH ×2 (05:37→15:59)
[2024-04-28 06:37] LABS: MANUAL DIFF FLAG NO
[2024-04-28 06:55] LABS: Basophils Absolute Auto 0.1 X10*3/uL (0.0-0.2); Basophils Percent Auto 0.4 % (0-2); Eosinophils Absolute Auto 0.1 X10*3/uL (0.0-0.4); Eosinophils Percent Auto 1.1 % (0-4); Hematocrit 31.6 % (42.0-52.0); Hemoglobin 10.1 g/dl (14.0-18.0); Imm Gran Abs Auto 0.07 X10*3/uL (0.00-0.03); Imm Gran Pct Auto 0.5 % (0.0-0.4); Lymphocytes Absolute Auto 1.4 X10*3/uL (1.2-4.9); Lymphocytes Percent Auto 10.5 % (20-40); Mean Corpuscular Hemoglobin 24.3 pg (27.0-33.0); Mean Platelet Volume 10.4 fL (9.4-12.4); Monocytes Absolute Auto 0.8 X10*3/uL (0.1-1.2); Monocytes Percent Auto 6.4 % (2-11); Neutrophils Absolute Auto 10.5 x10*3/uL (2.0-8.3); Neutrophils Percent Auto 81.1 % (45-73); Platelet Count 216 X10*3/uL (160-400); Red Blood Count 4.16 X10*6/uL (4.60-5.80); Red Cell Distribution Width 18.5 % (11.0-16.0); White Blood Count 12.9 X10*3/uL (4.8-10.8)
[2024-04-28 06:59] LABS: Anion Gap 10 (12-20); Blood Urea Nitrogen 10 mg/dL (9-16); Calcium 7.8 mg/dL (8.4-10.2); Carbon Dioxide 20 mmol/L (22-29); Chloride 114 mmol/L (96-108); Creatinine Clr Calc Pharmacy 83.2; Estimated Glomerular Filt Rate > 60; Glucose Random 170 mg/dL (60-115); Potassium 3.8 mmol/L (3.3-5.1); Sodium 140 mmol/L (135-145)
--- NOTE | 2024-04-28 07:19 | P.PNIM_ITS ---
Subjective Subjective Date of Service: 04/28/24 Interval History: Seen in follow up for hematemesis, gastritis INterval history: Still reporting epigastric pain radiating into chest and nausea. No further vomiting/hematemesis. Associated dysphagia and globus sensation Review of Systems Review of Systems: Yes all other systems are reviewed and are negative Physical Exam 2 Vital Signs: Vital Signs: Last Vital Signs Temp 98.3 F 04/28/24 04:00 Pulse 74 04/28/24 04:00 Resp 17 04/28/24 04:00 BP 173/84 H 04/28/24 04:00 Pulse Ox 93 04/28/24 04:00 O2 Del Method Nasal Cannula 04/28/24 04:00 O2 Flow Rate 3 04/28/24 04:00 BMI result Body Mass Index 22.5 Constitutional - Awake and Alert, No apparent distress Eyes - PERRLA, EOMI Cardiovascular - S1S2, RRR, No edema Respiratory - Normal lung expansion, Normal respiratory effort, No respiratory distress, CTA bilaterally Gastrointestinal - mild epigastric ttp. ND; +BS; No rebound or guarding Extremities - no calf tenderness bilaterally, no swelling Skin - Warm/Dry Neurological - Alert & oriented x3 Psychological - Appropriate affect Objective Data Active Medications Albuterol Sulfate (Albuterol Sulfate (0.083%) 2.5 Mg/3 Ml Vial.Neb) 2.5 mg INHALE Q2H PRN PRN Reason: Shortness of Breath/Wheezing Albuterol Sulfate (Albuterol Sulfate 90 Mcg 8 Gm Inhaler) 2 puff INHALE Q4H PRN PRN Reason: bronchospasm Amlodipine Besylate (Amlodipine Besylate 10 Mg Tablet) 10 mg PO DAILY [facility]; Protocol Escitalopram Oxalate (Escitalopram Oxalate 10 Mg Tablet) 10 mg PO DAILY [facility] Fluticasone/Vilanterol (Fluticasone/Vilanterol 100/25 Blst.W.Dev) 1 puff INHALE RDAILY [facility] Folic Acid (Folic Acid 1 Mg Tablet) 1 mg PO DAILY [facility] Last Admin: 04/27/24 13:46 Dose: 1 mg Documented By: SANDRA Furosemide (Furosemide 40 Mg Tablet) 80 mg PO DAILY [facility]; Protocol Furosemide (Furosemide 40 Mg Tablet) 40 mg PO BEDTIME [facility]; Protocol Glucose (Glucose Gel 15 Gm Gel..Gram.) 15 gm PO Q15M PRN; Protocol PRN Reason: per Hypoglycemia Standing Ord. Hydralazine HCl (Hydralazine Hcl 50 Mg Tablet) 100 mg PO TID [facility]; Protocol Last Admin: 04/27/24 21:13 Dose: 100 mg Documented By: BINU Hydromorphone HCl (Hydromorphone Hcl 1 Mg/Ml Syringe) 1 mg IVPUSH Q3H PRN; Protocol PRN Reason: Pain, Severe (Pain Scale 7-10) Last Admin: 04/28/24 04:11 Dose: 1 mg Documented By: NIKOLAI Thiamine HCl 100 mg/ Sodium (Chloride) 101 mls @ 202 mls/hr IV DAILY [facility] Last Infusion: 04/27/24 08:55 Dose: Infused Documented By: SANDRA Dextrose (D10) 250 mls @ 750 mls/hr IV Q15M PRN; Protocol PRN Reason: per Hypoglycemia Standing Ord. Insulin Human Lispro (Insulin Lispro 100 Unit/Ml 3 Ml Vial) 0 unit SUBCUT Q6H [facility]; Protocol Last Admin: 04/28/24 04:08 Dose: Not Given Documented By: NIKOLAI Non-Admin Reason: No Insulin Coverage Comments: POC 120 Labetalol HCl (Labetalol Hcl 100 Mg/20 Ml Vial) 10 mg IVPUSH Q4H PRN PRN Reason: SBP > 170 Lidocaine/Diphenhydr/Alum/Mg/Simeth (Mag&Al/Sim/Diphenhyd/Lidocaine 10 Ml Oral.Susp) 10 ml PO Q6H PRN; Protocol PRN Reason: mouth or throat pain Magnesium Oxide (Magnesium Oxide 400 Mg Tablet) 400 mg PO BIDPC [facility] Last Admin: 04/27/24 17:08 Dose: 400 mg Documented By: SANDRA Multivitamins/Vitamin C (Multivitamin Tablet) 1 tab PO DAILY [facility] Ondansetron HCl (Ondansetron Hcl 4 Mg/2 Ml Vial) 4 mg IVPUSH Q8H PRN PRN Reason: Nausea and Vomiting Last Admin: 04/27/24 21:08 Dose: 4 mg Documented By: BINU Pantoprazole Sodium (Pantoprazole Sodium 40 Mg/10 Ml Vial) 40 mg IVPUSH BID@0630,1630 [facility] Last Admin: 04/28/24 05:37 Dose: 40 mg Documented By: NIKOLAI Phenobarbital (Phenobarbital 30 Mg Tablet) 30 mg PO BID [facility] Stop: 04/29/24 21:01 Phenobarbital (Phenobarbital 30 Mg Tablet) 30 mg PO DAILY [facility]; Protocol Stop: 05/01/24 09:01 Sodium Chloride (0.9 % Sodium Chloride Flush 3 Ml Syringe) 3 ml IVFLUSH QSHIFT [facility] Last Admin: 04/28/24 00:06 Dose: 3 ml Documented By: CASTILM Sucralfate (Sucralfate 1 Gm Tablet) 1 gm PO QIDACHS [facility] Last Admin: 04/27/24 21:09 Dose: 1 gm Documented By: BINU Trazodone HCl (Trazodone Hcl 100 Mg Tablet) 100 mg PO BEDTIME [facility] Last Admin: 04/27/24 21:09 Dose: 100 mg Documented By: BINU Labs 04/28/24 06:13 04/28/24 06:13 Labs: Laboratory Results - last 24 hr 04/27/24 04/27/24 04/27/24 07:44 07:55 10:23 MCV 76.3 L MCH 24.6 L MCHC 32.2 RDW 18.7 H Plt Count 235 MPV 9.7 Immature Gran % (Auto) 0.5 H Neut % (Auto) 84.4 H Lymph % (Auto) 9.6 L [place] % (Auto) 5.1 Eos % (Auto) 0.1 Baso % (Auto) 0.3 Lymph # (Auto) 1.6 [place] # (Auto) 0.9 Eos # (Auto) 0.0 Baso # (Auto) 0.1 Abs Immat Gran (auto) 0.08 H Absolute Neuts (auto) 14.1 H Absolute Nucleated RBC 0.000 Nucleated RBC % (auto) 0.0 Anion Gap 13 Estim Creat Clear Calc 88.9 Estimated GFR > 60 POC Glucose 141 H 234 H Random Glucose 133 H Calcium 7.7 L D 04/27/24 04/27/24 04/27/24 11:59 15:52 21:00 MCV MCH MCHC RDW Plt Count MPV Immature Gran % (Auto) Neut % (Auto) Lymph % (Auto) [place] % (Auto) Eos % (Auto) Baso % (Auto) Lymph # (Auto) [place] # (Auto) Eos # (Auto) Baso # (Auto) Abs Immat Gran (auto) Absolute Neuts (auto) Absolute Nucleated RBC Nucleated RBC % (auto) Anion Gap Estim Creat Clear Calc Estimated GFR POC Glucose 187 H 159 H 76 Random Glucose Calcium 04/28/24 04/28/24 04:07 06:13 MCV 76.0 L MCH 24.3 L MCHC 32.0 RDW 18.5 H Plt Count 216 MPV 10.4 Immature Gran % (Auto) 0.5 H Neut % (Auto) 81.1 H Lymph % (Auto) 10.5 L [place] % (Auto) 6.4 Eos % (Auto) 1.1 Baso % (Auto) 0.4 Lymph # (Auto) 1.4 [place] # (Auto) 0.8 Eos # (Auto) 0.1 Baso # (Auto) 0.1 Abs Immat Gran (auto) 0.07 H Absolute Neuts (auto) 10.5 H Absolute Nucleated RBC 0.000 Nucleated RBC % (auto) 0.0 Anion Gap 10 L Estim Creat Clear Calc 83.2 Estimated GFR > 60 POC Glucose 120 H Random Glucose 170 H Calcium 7.8 L Microbiology Microbiology Results: Microbiology 04/25/24 19:08 Blood Culture - Preliminary Blood - Venous No growth after 48 hours. 04/25/24 18:20 Blood Culture - Preliminary Blood - Venous No growth after 48 hours. Assessment and Plan (1) Upper GI bleeding: Status: Acute Plan 48 yo M admitted for: Suspected acute upper gi bleed with acute on chronic anemia trend h/h- stable compared to yesterday, no indication for transfusion at this time still symptomatic with epigastric pain radiating into chest with dysphagia and globus sensation d/w GI -- recommended clears, advance as tolerated. Pt would likely to try advancement, full liquid diet ordered (04/28) continue iv ppi plan for egd tomorrow, npo after midnight alcohol abuse with high risk for withdrawal on phenobarb per protocol, continue ciwa iv thiamine, po folic acid KELVIN- resolved dc ivf resume diuretics am, hold further nephrotoxins follow renal fx/lytes COPD with chronic hypoxemic respiratory failure reports intermittent use of 4L supplemental O2 at baseline, continue per protocol continue meds insulin dependent DM uses prn lantus at home? Monitor glucose for now, resume as indicated sliding scale, poc htn continue home meds Full Code DVT pptx -- mechanical due to acute gi bleed requires ongoing hospital stay with worsening anemia awaiting egd/colo once alcohol withdrawal improves on phenobarbital per protocol Quality Stroke Does the patient have a stroke diagnosis?: No VTE Prior VTE?: No VTE Risk Level:: Medical - moderate - high VTE Device Contraindication: N/A - Device Ordered VTE Drug Contraindication: Treatment Not Indicated
[2024-04-28] MEDS: Fluticasone/Vilanterol 100/25 BLST.W.DEV 1 PUFF INHALE (07:34)
[2024-04-28 07:38] LABS: Glucose, Whole Blood 156 mg/dL (60-115)
[2024-04-28] MEDS: Sucralfate 1 GM TABLET PO ×4 (08:02→21:11)
[2024-04-28] MEDS: Furosemide 40 MG TABLET 80 MG PO (08:02)
[2024-04-28] MEDS: Magnesium Oxide 400 MG TABLET PO ×2 (08:03→17:02)
[2024-04-28] MEDS: amLODIPine Besylate 10 MG TABLET PO (08:03)
[2024-04-28] MEDS: Multivitamin TABLET 1 TAB PO (08:03)
[2024-04-28] MEDS: Escitalopram Oxalate 10 MG TABLET PO (08:03)
[2024-04-28] MEDS: hydrALAZINE HCl 50 MG TABLET 100 MG PO ×3 (08:03→21:14)
[2024-04-28] MEDS: PHENobarbitaL 30 MG TABLET PO ×2 (08:03→21:11)
[2024-04-28] MEDS: Folic Acid 1 MG TABLET PO (08:03)
[2024-04-28] MEDS: Thiamine HCL 100 MG in 0.9 % Sodium Chloride 100 ML 202 MG IV (08:04)
[2024-04-28 09:43] LABS: Iron 24 mcg/dL (45-160); Percent Iron Saturation 10 % (15-50); Total Iron Binding Capacity 233 mcg/dL (228-428); Unsaturated Iron Binding 209 ug/dL
[2024-04-28 10:04] LABS: Ferritin 58 ng/mL (20-250)
[2024-04-28 10:58] LABS: Folate > 20.0 ng/mL (> or = 4.0); Vitamin B12 270 pg/mL (200-900)
[2024-04-28] MEDS: Albuterol Sulfate 90 MCG 8 GM INHALER 2 PUFF INHALE (11:01)
[2024-04-28 11:21] LABS: Glucose, Whole Blood 213 mg/dL (60-115)
[2024-04-28] MEDS: Insulin Lispro 100 UNIT/ML 3 ML VIAL SUBCUT ×2 (11:32→21:11)
[2024-04-28 15:59] LABS: Glucose, Whole Blood 137 mg/dL (60-115)
[2024-04-28 20:48] LABS: Glucose, Whole Blood 265 mg/dL (60-115)
[2024-04-28] MEDS: traZODone HCL 100 MG TABLET PO (21:07)
[2024-04-28] MEDS: Furosemide 40 MG TABLET PO (21:14)
[2024-04-29] VITALS (15 sets, daily range): BP systolic 103–195; BP diastolic 51–178; PULSE 56–92; RESP 17–21; TEMP 36.3–37.6; O2SAT 93–97
[2024-04-29] MEDS: 0.9 % Sodium Chloride Flush 3 ML SYRINGE IVFLUSH ×3 (00:51→18:22)
[2024-04-29] MEDS: Pantoprazole Sodium 40 MG/10 ML VIAL IVPUSH (05:32)
[2024-04-29 06:25] LABS: MANUAL DIFF FLAG NO
[2024-04-29 06:42] LABS: Basophils Percent Auto 0.4 % (0-2); Eosinophils Absolute Auto 0.2 X10*3/uL (0.0-0.4); Eosinophils Percent Auto 1.9 % (0-4); Hematocrit 35.3 % (42.0-52.0); Hemoglobin 11.7 g/dl (14.0-18.0); Imm Gran Abs Auto 0.04 X10*3/uL (0.00-0.03); Imm Gran Pct Auto 0.4 % (0.0-0.4); Lymphocytes Absolute Auto 1.6 X10*3/uL (1.2-4.9); Lymphocytes Percent Auto 17.3 % (20-40); Mean Corpuscular HGB Conc 33.1 g/dl (31.0-36.0); Mean Corpuscular Hemoglobin 24.7 pg (27.0-33.0); Mean Corpuscular Volume 74.5 fL (80.0-98.0); Mean Platelet Volume 10.5 fL (9.4-12.4); Monocytes Absolute Auto 0.6 X10*3/uL (0.1-1.2); Monocytes Percent Auto 6.5 % (2-11); Neutrophils Absolute Auto 6.7 x10*3/uL (2.0-8.3); Neutrophils Percent Auto 73.5 % (45-73); Platelet Count 234 X10*3/uL (160-400); Red Blood Count 4.74 X10*6/uL (4.60-5.80); Red Cell Distribution Width 18.3 % (11.0-16.0); White Blood Count 9.2 X10*3/uL (4.8-10.8)
[2024-04-29 06:47] LABS: Anion Gap 15 (12-20); Blood Urea Nitrogen 8 mg/dL (9-16); Calcium 8.8 mg/dL (8.4-10.2); Carbon Dioxide 22 mmol/L (22-29); Chloride 107 mmol/L (96-108); Creatinine Clr Calc Pharmacy 87.9; Estimated Glomerular Filt Rate > 60; Glucose Random 143 mg/dL (60-115); Potassium 3.5 mmol/L (3.3-5.1); Sodium 140 mmol/L (135-145)
[2024-04-29] MEDS: Fluticasone/Vilanterol 100/25 BLST.W.DEV 1 PUFF INHALE (07:21)
[2024-04-29 07:55] LABS: Glucose, Whole Blood 159 mg/dL (60-115)
[2024-04-29] MEDS: hydrALAZINE HCl 50 MG TABLET 100 MG PO ×2 (08:34→18:21)
[2024-04-29] MEDS: Thiamine HCL 100 MG in 0.9 % Sodium Chloride 100 ML 201 MG IV (08:34)
[2024-04-29] MEDS: Furosemide 40 MG TABLET 80 MG PO (08:37)
[2024-04-29] MEDS: Multivitamin TABLET 1 TAB PO (08:37)
[2024-04-29] MEDS: Folic Acid 1 MG TABLET PO (08:37)
[2024-04-29] MEDS: Escitalopram Oxalate 10 MG TABLET PO (08:37)
[2024-04-29] MEDS: PHENobarbitaL 30 MG TABLET PO (08:37)
[2024-04-29] MEDS: amLODIPine Besylate 10 MG TABLET PO (08:38)
[2024-04-29] MEDS: Sucralfate 1 GM TABLET PO ×2 (08:38→18:22)
[2024-04-29] MEDS: Magnesium Oxide 400 MG TABLET PO ×2 (08:38→18:20)
--- NOTE | 2024-04-29 10:38 | MHC.CM.PN ---
Per MD rounds, patient is planned for an EGD today. Patient lives with other family members. He lives withhis Brother and adult Dtr. DP Home with family assist. Patient may need assist with transport.
--- NOTE | 2024-04-29 10:47 | HO.PM.IMPN ---
Subjective Subjective Date of Service: 04/29/24 Interval History: Seen in follow up for hematemesis, gastritis Still reporting epigastric pain radiating into chest and nausea. No further vomiting/hematemesis. Associated dysphagia and globus sensation Review of Systems Review of Systems: Yes all other systems are reviewed and are negative Physical Exam Vital Signs: Vital Signs: Last Vital Signs Temp 97.3 F 04/29/24 08:00 Pulse 56 04/29/24 08:00 Resp 17 04/29/24 08:00 BP 178/78 H 04/29/24 08:38 Pulse Ox 95 04/29/24 08:00 O2 Del Method Room Air 04/29/24 08:00 O2 Flow Rate 2 04/29/24 04:00 BMI result Body Mass Index 22.5 Appearing in no acute distress lung sounds are clear to auscultation heart regular rate rhythm, clear S1, S2 positive bowel sounds, abdomen is soft, nontender neuro patient is alert x3, no focal deficits Objective Data Active Medications Albuterol Sulfate (Albuterol Sulfate (0.083%) 2.5 Mg/3 Ml Vial.Neb) 2.5 mg INHALE Q2H PRN PRN Reason: Shortness of Breath/Wheezing Albuterol Sulfate (Albuterol Sulfate 90 Mcg 8 Gm Inhaler) 2 puff INHALE Q4H PRN PRN Reason: bronchospasm Last Admin: 04/28/24 11:01 Dose: 2 puff Documented By: SANDRA Amlodipine Besylate (Amlodipine Besylate 10 Mg Tablet) 10 mg PO DAILY REPLACED BY [facility]; Protocol Last Admin: 04/29/24 08:38 Dose: 10 mg Documented By: NURIA Escitalopram Oxalate (Escitalopram Oxalate 10 Mg Tablet) 10 mg PO DAILY REPLACED BY [facility] Last Admin: 04/29/24 08:37 Dose: 10 mg Documented By: NURIA Fluticasone/Vilanterol (Fluticasone/Vilanterol 100/25 Blst.W.Dev) 1 puff INHALE RDAILY REPLACED BY [facility] Last Admin: 04/29/24 07:21 Dose: 1 puff Documented By: MAGGY Folic Acid (Folic Acid 1 Mg Tablet) 1 mg PO DAILY REPLACED BY [facility] Last Admin: 04/29/24 08:37 Dose: 1 mg Documented By: NURIA Furosemide (Furosemide 40 Mg Tablet) 80 mg PO DAILY REPLACED BY [facility]; Protocol Last Admin: 04/29/24 08:37 Dose: 80 mg Documented By: NURIA Furosemide (Furosemide 40 Mg Tablet) 40 mg PO BEDTIME DIONISIO; Protocol Last Admin: 04/28/24 21:14 Dose: 40 mg Documented By: SANDRA Glucose (Glucose Gel 15 Gm Gel..Gram.) 15 gm PO Q15M PRN; Protocol PRN Reason: per Hypoglycemia Standing Ord. Hydralazine HCl (Hydralazine Hcl 50 Mg Tablet) 100 mg PO TID REPLACED BY [facility]; Protocol Last Admin: 04/29/24 08:34 Dose: 100 mg Documented By: NURIA Hydromorphone HCl (Hydromorphone Hcl 1 Mg/Ml Syringe) 1 mg IVPUSH Q3H PRN; Protocol PRN Reason: Pain, Severe (Pain Scale 7-10) Last Admin: 04/28/24 04:11 Dose: 1 mg Documented By: BRANDONILGracie Thiamine HCl 100 mg/ Sodium (Chloride) 101 mls @ 202 mls/hr IV DAILY REPLACED BY [facility] Last Infusion: 04/29/24 09:37 Dose: Infused Documented By: NURIA Dextrose (D10) 250 mls @ 750 mls/hr IV Q15M PRN; Protocol PRN Reason: per Hypoglycemia Standing Ord. Insulin Human Lispro (Insulin Lispro 100 Unit/Ml 3 Ml Vial) 0 unit SUBCUT QIDACHS REPLACED BY [facility]; Protocol Last Admin: 04/29/24 08:13 Dose: Not Given Documented By: NURIA Non-Admin Reason: NPO Labetalol HCl (Labetalol Hcl 100 Mg/20 Ml Vial) 10 mg IVPUSH Q4H PRN PRN Reason: SBP > 170 Lidocaine/Diphenhydr/Alum/Mg/Simeth (Mag&Al/Sim/Diphenhyd/Lidocaine 10 Ml Oral.Susp) 10 ml PO Q6H PRN; Protocol PRN Reason: mouth or throat pain Magnesium Oxide (Magnesium Oxide 400 Mg Tablet) 400 mg PO BIDPC REPLACED BY [facility] Last Admin: 04/29/24 08:38 Dose: 400 mg Documented By: NURIA Multivitamins/Vitamin C (Multivitamin Tablet) 1 tab PO DAILY REPLACED BY [facility] Last Admin: 04/29/24 08:37 Dose: 1 tab Documented By: NURIA Ondansetron HCl (Ondansetron Hcl 4 Mg/2 Ml Vial) 4 mg IVPUSH Q8H PRN PRN Reason: Nausea and Vomiting Last Admin: 04/27/24 21:08 Dose: 4 mg Documented By: BINU Pantoprazole Sodium (Pantoprazole Sodium 40 Mg/10 Ml Vial) 40 mg IVPUSH BID@0630,1630 REPLACED BY [facility] Last Admin: 04/29/24 05:32 Dose: 40 mg Documented By: SARAH Phenobarbital (Phenobarbital 30 Mg Tablet) 30 mg PO BID REPLACED BY [facility] Stop: 04/29/24 21:01 Last Admin: 04/29/24 08:37 Dose: 30 mg Documented By: NURIA Phenobarbital (Phenobarbital 30 Mg Tablet) 30 mg PO DAILY REPLACED BY [facility]; Protocol Stop: 05/01/24 09:01 Sodium Chloride (0.9 % Sodium Chloride Flush 3 Ml Syringe) 3 ml IVFLUSH QSHIFT REPLACED BY [facility] Last Admin: 04/29/24 08:39 Dose: 3 ml Documented By: NURIA Sucralfate (Sucralfate 1 Gm Tablet) 1 gm PO QIDACHS REPLACED BY [facility] Last Admin: 04/29/24 08:38 Dose: 1 gm Documented By: NURIA Trazodone HCl (Trazodone Hcl 100 Mg Tablet) 100 mg PO BEDTIME REPLACED BY [facility] Last Admin: 04/28/24 21:07 Dose: 100 mg Documented By: SANDRA Labs 04/29/24 06:19 04/29/24 06:19 Labs: Laboratory Results - last 24 hr 04/28/24 04/28/24 04/28/24 09:55 11:18 15:54 MCV MCH MCHC RDW Plt Count MPV Immature Gran % (Auto) Neut % (Auto) Lymph % (Auto) [place] % (Auto) Eos % (Auto) Baso % (Auto) Lymph # (Auto) [place] # (Auto) Eos # (Auto) Baso # (Auto) Abs Immat Gran (auto) Absolute Neuts (auto) Absolute Nucleated RBC Nucleated RBC % (auto) Anion Gap Estim Creat Clear Calc Estimated GFR POC Glucose 213 H 137 H Random Glucose Calcium Vitamin B12 270 Folate > 20.0 04/28/24 04/29/24 04/29/24 20:42 06:19 07:46 MCV 74.5 L MCH 24.7 L MCHC 33.1 RDW 18.3 H Plt Count 234 MPV 10.5 Immature Gran % (Auto) 0.4 Neut % (Auto) 73.5 H Lymph % (Auto) 17.3 L [place] % (Auto) 6.5 Eos % (Auto) 1.9 Baso % (Auto) 0.4 Lymph # (Auto) 1.6 [place] # (Auto) 0.6 Eos # (Auto) 0.2 Baso # (Auto) 0.0 Abs Immat Gran (auto) 0.04 H Absolute Neuts (auto) 6.7 Absolute Nucleated RBC 0.000 Nucleated RBC % (auto) 0.0 Anion Gap 15 Estim Creat Clear Calc 87.9 Estimated GFR > 60 POC Glucose 265 H 159 H Random Glucose 143 H Calcium 8.8 D Vitamin B12 Folate Assessment and Plan (1) Upper GI bleeding: Status: Acute Plan 48 yo M admitted for possible GI bleed Suspected acute upper gi bleed with acute on chronic anemia trend h/h- stable compared to yesterday, no indication for transfusion at this time still symptomatic with epigastric pain radiating into chest with dysphagia and globus sensation d/w GI -- recommended clears, advance as tolerated. Pt would likely to try advancement, full liquid diet ordered (04/28) continue iv ppi plan for egd today alcohol abuse with high risk for withdrawal on phenobarb per protocol, continue ciwa iv thiamine, po folic acid KELVIN- resolved dc ivf resume diuretics am, hold further nephrotoxins follow renal fx/lytes COPD with chronic hypoxemic respiratory failure reports intermittent use of 4L supplemental O2 at baseline, continue per protocol continue meds insulin dependent DM uses prn lantus at home? Monitor glucose for now, resume as indicated sliding scale, poc htn continue home meds Full Code DVT pptx -- mechanical due to acute gi bleed Attending Dr. Ortiz requires ongoing hospital stay with worsening anemia awaiting egd/colo once alcohol withdrawal improves on phenobarbital per protocol Quality Stroke Does the patient have a stroke diagnosis?: No VTE Prior VTE?: No VTE Risk Level:: Medical - moderate - high VTE Device Contraindication: N/A - Device Ordered VTE Drug Contraindication: Treatment Not Indicated
[2024-04-29 11:59] LABS: Glucose, Whole Blood 171 mg/dL (60-115)
--- NOTE | 2024-04-29 16:34 | MHC.SHP ---
Pre-Procedural Eval Section A - 24 Hr Update-Section A only Date of Service: 04/29/24 The patient is an INPATIENT: Yes The patient has been examined within 24 hours of the surgical procedure. The History & Physical has been completed within 30 days and I have reviewed it.: Yes Section B - Complete if H&P > 30 days Chief Complaint: Upper GI Bleeding Allergies: Allergies Allergy/AdvReac Type Severity Reaction Status Date / Time dulaglutide [From Trulicity] Allergy Unknown Verified 04/25/24 17:13 metformin [METFORMIN] AdvReac Mild DIARRHEA, Verified 04/25/24 17:13 nausea and vomiting Plan Diagnosis/Plan: Unchanged I have reviewed the history and physical and performed a pertinent physical examination on my patient. No changes have occurred unless specified. Time Spent With Patient Time: Total time managing care of this patient today ____ minutes.
--- NOTE | 2024-04-29 16:34 | PM.GIPN ---
Subjective Subjective Date of Service: 04/29/24 Interval History: no further emesis no dysphagia notes dark stools denies abdominal pain Constitutional : No Weight loss, No Fever, No Chills ENT/Mouth : No sore throat, No Rhinorrhea Eyes: No Swelling, No Redness Cardiovascular : No Chest Pain, No SOB, No Edema Respiratory : No Cough, No Sputum, No Wheezing Gastrointestinal : see HPI Genitourinary : NO Dysuria, No Urinary Frequency, No Hematuria, No Urgency Musculoskeletal : + joint pain, No Myalgias, No Joint Swelling Skin : No Skin Lesions, No rash Neuro : No Weakness, No Numbness, No Dizziness, No Headache Psych : No Anxiety/Panic, No Depression Heme/Lymph: No Bruising, No Lymphadenopathy Endocrine : No Polyuria, No Polydipsia All other systems reviewed and are negative. Critical Care Time (minutes): 0 Physical Exam Vital Signs: Vital Signs: Last Vital Signs Temp 97.5 F 04/29/24 11:19 Pulse 71 04/29/24 11:19 Resp 18 04/29/24 11:19 BP 168/76 H 04/29/24 11:19 Pulse Ox 93 04/29/24 11:19 O2 Del Method Room Air 04/29/24 11:19 O2 Flow Rate 2 04/29/24 04:00 BMI result Body Mass Index 22.5 EXAM: GENERAL: The patient is well developed and nontoxic. VITAL SIGNS:see workflow HEENT: Nonicteric sclerae, PERRLA, EOMI. Oropharynx clear. Moist mucous membranes. Conjunctivae appear well perfused. No thyroid mass. CHEST: Chest wall is nontender. HEART: Regular rate and rhythm without murmurs. LUNGS: Clear to auscultation bilaterally. ABDOMEN: Soft, positive bowel sounds, nontender, no organomegaly.no flank tenderness SKIN: No rash, no excessive bruising, petechiae, or purpura. NEUROLOGIC: Cranial nerves II-XII intact without motor/sensory deficit. Psych: normal affect Objective Data Labs 04/29/24 06:19 04/29/24 06:19 Labs: Laboratory Results - last 24 hr 04/28/24 04/29/24 04/29/24 20:42 06:19 07:46 WBC 9.2 RBC 4.74 Hgb 11.7 L Hct 35.3 L MCV 74.5 L MCH 24.7 L MCHC 33.1 RDW 18.3 H Plt Count 234 MPV 10.5 Immature Gran % (Auto) 0.4 Neut % (Auto) 73.5 H Lymph % (Auto) 17.3 L [place] % (Auto) 6.5 Eos % (Auto) 1.9 Baso % (Auto) 0.4 Lymph # (Auto) 1.6 [place] # (Auto) 0.6 Eos # (Auto) 0.2 Baso # (Auto) 0.0 Abs Immat Gran (auto) 0.04 H Absolute Neuts (auto) 6.7 Absolute Nucleated RBC 0.000 Nucleated RBC % (auto) 0.0 Sodium 140 Potassium 3.5 Chloride 107 Carbon Dioxide 22 Anion Gap 15 BUN 8 L Creatinine 0.88 Estim Creat Clear Calc 87.9 Estimated GFR > 60 POC Glucose 265 H 159 H Random Glucose 143 H Calcium 8.8 D 04/29/24 11:53 WBC RBC Hgb Hct MCV MCH MCHC RDW Plt Count MPV Immature Gran % (Auto) Neut % (Auto) Lymph % (Auto) [place] % (Auto) Eos % (Auto) Baso % (Auto) Lymph # (Auto) [place] # (Auto) Eos # (Auto) Baso # (Auto) Abs Immat Gran (auto) Absolute Neuts (auto) Absolute Nucleated RBC Nucleated RBC % (auto) Sodium Potassium Chloride Carbon Dioxide Anion Gap BUN Creatinine Estim Creat Clear Calc Estimated GFR POC Glucose 171 H Random Glucose Calcium Microbiology Microbiology Results: Microbiology 04/25/24 19:08 Blood - Venous Blood Culture - Preliminary No growth after 48 hours. 04/25/24 18:20 Blood - Venous Blood Culture - Preliminary No growth after 48 hours. Procedures Date of Service Date of Service: 04/29/24 Progress Note: A&P Assessment and plan (1) Hematemesis: Status: Acute Plan 1/ Coffee ground emesis on background of alcohol use and diabetes, might have erosive esophagitis, MW tear, ulcer, candidal esophagitis PLAN: 1/ EGD today for further assessment, cont with PPI for the moment Time Spent With Patient Time: Total time managing care of this patient today ____ minutes. Quality Stroke Does the patient have a stroke diagnosis?: No VTE Prior VTE?: No VTE Risk Level:: Medical - moderate - high VTE Device Contraindication: N/A - Device Ordered VTE Drug Contraindication: Treatment Not Indicated
[2024-04-29 16:44] LABS: Glucose, Whole Blood 184 mg/dL (60-115)
--- NOTE | 2024-04-29 17:11 | P.CONAN_ITS ---
HPI - Anesthesia Eval Consult details Narrative: 48 yo male patient for EGD [facility] Active Problems Active Problems: All Active Problems (Updated 04/26/24 @ 16:10 by Marielle Aaron MD) Hematemesis (Acute) KELVIN (acute kidney injury) (Acute) Upper GI bleeding (Acute) Chest pain (Acute) Esophagitis (Acute) Strep throat (Acute) Influenza A (Acute) Dyspnea (Acute) Proteinuria (Acute) Hospital discharge follow-up (Acute) Acute upper GI bleed (Acute) Hyperglycemia (Acute) Hypomagnesemia (Acute) PAD (peripheral artery disease) (Acute) CHF Past Medical History Medical History KELVIN (acute kidney injury) Hypertension Chronic heart failure with preserved ejection fraction (HFpEF) Acute respiratory failure with hypoxia Congestive heart failure CKD (chronic kidney disease) stage 1, GFR 90 ml/min or greater Depression COPD exacerbation YARELIS (obstructive sleep apnea) CHF exacerbation Hypoxia Acute respiratory failure Uncontrolled hypertension Acute on chronic diastolic (congestive) heart failure Acute on chronic anemia Hyperglycemia due to type 2 diabetes mellitus YARELIS (obstructive sleep apnea) Congestive heart failure Anxiety HLD (hyperlipidemia) Diabetes Hypercholesteremia HTN (hypertension) Asthma PAD (peripheral artery disease) Family History Family History Father Alzheimer disease CAD (coronary artery disease) Family history of problems with anesthesia: No Surgical History Surgical History (Updated 04/29/24 @ 17:15 by Katiuska Angel MD) History of esophagogastroduodenoscopy S/P angiogram of extremity History of Problems with Anesthesia: No Social History Social History Household Members: Family Household Members Other:: girlfriend Housing: Apartment Do you presently have visiting nurse or other home services: No Unable to assess alcohol history related to: Unknown Alcohol intake: never Comment: low fall risk Patient Tobacco Use Status: Current everyday Tobacco user Tobacco use type: Cigarette Cigarettes Per Day: 5 Years Smoked: >30 e-Cigarette/Vaping Use: Never Used Second Hand Smoke Exposure: Yes Substance Use Type: Marijuana Advance Directives Date on File: 06/21/21 service: No Current occupational status: disabled Meds Allergies Allergy/AdvReac Type Severity Reaction Status Date / Time dulaglutide [From [facility]] Allergy Unknown Verified 04/25/24 17:13 metformin [METFORMIN] AdvReac Mild DIARRHEA, Verified 04/25/24 17:13 nausea and vomiting Active Medications: Current Medications Albuterol Sulfate (Albuterol Sulfate (0.083%) 2.5 Mg/3 Ml Vial.Neb) 2.5 mg INHALE Q2H PRN PRN Reason: Shortness of Breath/Wheezing Albuterol Sulfate (Albuterol Sulfate 90 Mcg 8 Gm Inhaler) 2 puff INHALE Q4H PRN PRN Reason: bronchospasm Last Admin: 04/28/24 11:01 Dose: 2 puff Amlodipine Besylate (Amlodipine Besylate 10 Mg Tablet) 10 mg PO DAILY [facility]; Protocol Last Admin: 04/29/24 08:38 Dose: 10 mg Escitalopram Oxalate (Escitalopram Oxalate 10 Mg Tablet) 10 mg PO DAILY [facility] Last Admin: 04/29/24 08:37 Dose: 10 mg Fluticasone/Vilanterol (Fluticasone/Vilanterol 100/25 Blst.W.Dev) 1 puff INHALE RDAILY [facility] Last Admin: 04/29/24 07:21 Dose: 1 puff Folic Acid (Folic Acid 1 Mg Tablet) 1 mg PO DAILY [facility] Last Admin: 04/29/24 08:37 Dose: 1 mg Furosemide (Furosemide 40 Mg Tablet) 80 mg PO DAILY [facility]; Protocol Last Admin: 04/29/24 08:37 Dose: 80 mg Furosemide (Furosemide 40 Mg Tablet) 40 mg PO BEDTIME [facility]; Protocol Last Admin: 04/28/24 21:14 Dose: 40 mg Glucose (Glucose Gel 15 Gm Gel..Gram.) 15 gm PO Q15M PRN; Protocol PRN Reason: per Hypoglycemia Standing Ord. Hydralazine HCl (Hydralazine Hcl 50 Mg Tablet) 100 mg PO TID [facility]; Protocol Last Admin: 04/29/24 08:34 Dose: 100 mg Hydromorphone HCl (Hydromorphone Hcl 1 Mg/Ml Syringe) 1 mg IVPUSH Q3H PRN; Protocol PRN Reason: Pain, Severe (Pain Scale 7-10) Last Admin: 04/28/24 04:11 Dose: 1 mg Thiamine HCl 100 mg/ Sodium (Chloride) 101 mls @ 202 mls/hr IV DAILY [facility] Last Infusion: 04/29/24 09:37 Dose: Infused Dextrose (D10) 250 mls @ 750 mls/hr IV Q15M PRN; Protocol PRN Reason: per Hypoglycemia Standing Ord. Insulin Human Lispro (Insulin Lispro 100 Unit/Ml 3 Ml Vial) 0 unit SUBCUT QIDACHS [facility]; Protocol Last Admin: 04/29/24 12:36 Dose: Not Given Labetalol HCl (Labetalol Hcl 100 Mg/20 Ml Vial) 10 mg IVPUSH Q4H PRN PRN Reason: SBP > 170 Lidocaine/Diphenhydr/Alum/Mg/Simeth (Mag&Al/Sim/Diphenhyd/Lidocaine 10 Ml Oral.Susp) 10 ml PO Q6H PRN; Protocol PRN Reason: mouth or throat pain Magnesium Oxide (Magnesium Oxide 400 Mg Tablet) 400 mg PO BIDPC [facility] Last Admin: 04/29/24 08:38 Dose: 400 mg Multivitamins/Vitamin C (Multivitamin Tablet) 1 tab PO DAILY [facility] Last Admin: 04/29/24 08:37 Dose: 1 tab Ondansetron HCl (Ondansetron Hcl 4 Mg/2 Ml Vial) 4 mg IVPUSH Q8H PRN PRN Reason: Nausea and Vomiting Last Admin: 04/27/24 21:08 Dose: 4 mg Phenobarbital (Phenobarbital 30 Mg Tablet) 30 mg PO BID [facility] Stop: 04/29/24 21:01 Last Admin: 04/29/24 08:37 Dose: 30 mg Phenobarbital (Phenobarbital 30 Mg Tablet) 30 mg PO DAILY [facility]; Protocol Stop: 05/01/24 09:01 Sodium Chloride (0.9 % Sodium Chloride Flush 3 Ml Syringe) 3 ml IVFLUSH QSHIFT [facility] Last Admin: 04/29/24 08:39 Dose: 3 ml Sucralfate (Sucralfate 1 Gm Tablet) 1 gm PO QIDACHS [facility] Last Admin: 04/29/24 12:36 Dose: Not Given Trazodone HCl (Trazodone Hcl 100 Mg Tablet) 100 mg PO BEDTIME [facility] Last Admin: 04/28/24 21:07 Dose: 100 mg Home Medications ?Medication ?Instructions ?Recorded ?Confirmed ?Last Taken ?Type escitalopram oxalate 10 mg tablet 10 mg PO DAILY 08/01/22 04/26/24 12/21/23 History trazodone 50 mg tablet 100 mg PO BEDTIME 08/01/22 04/26/24 12/21/23 History aspirin 81 mg tablet,delayed 81 mg PO DAILY 10/06/22 04/26/24 12/21/23 History release atorvastatin 40 mg tablet 40 mg PO DAILY 10/06/22 04/26/24 12/21/23 History gabapentin 300 mg capsule 300 mg PO TID 10/06/22 04/26/24 12/21/23 History metoprolol succinate 100 mg 100 mg PO DAILY 10/06/22 04/26/24 12/21/23 History tablet,extended release 24 hr omeprazole 40 mg capsule,delayed 40 mg PO DAILY@0630 10/06/22 04/26/24 12/21/23 History release furosemide 40 mg tablet 80 mg PO DAILY 06/26/23 04/26/24 12/21/23 History insulin glargine 100 unit/mL (3 27 unit subcut BEDTIME PRN 06/26/23 02/20/24 12/21/23 History mL) subcutaneous pen (Lantus Hyperglycemia Solostar U-100 Insulin) furosemide 40 mg tablet 40 mg PO BEDTIME 11/24/23 04/26/24 12/21/23 History fluticasone 250 mcg-salmeterol 50 1 ea inhalation BID 12/22/23 04/26/24 12/21/23 History mcg/dose blistr powdr for inhalation (Advair Diskus) multivitamin 1 tab PO DAILY 12/22/23 04/26/24 12/21/23 History albuterol sulfate 90 mcg/actuation 2 puff inhalation Q4H PRN 04/26/24 04/26/24 Unknown History aerosol inhaler bronchospasm insulin lispro 100 unit/mL 10 - 14 unit subcut TID 04/26/24 04/26/24 Unknown History subcutaneous solution Exam Height,Weight and Vital Signs: Height 5 ft 5 in Weight 61.235 kg Last Vital Signs Temp 98.2 F 04/29/24 16:41 Pulse 90 04/29/24 16:41 Resp 20 04/29/24 16:41 BP 162/63 H 04/29/24 16:41 Pulse Ox 97 04/29/24 16:41 O2 Del Method Room Air 04/29/24 16:41 O2 Flow Rate 2 04/29/24 04:00 Pertinent Lab Results Pertinent Lab Results: Laboratory Tests 04/25/24 04/25/24 04/25/24 18:19 18:20 18:31 WBC 19.0 H RBC 5.55 D Hgb 13.6 L Hct 41.1 L MCV 74.1 L MCH 24.5 L MCHC 33.1 RDW 18.8 H Plt Count 364 D MPV 9.6 Immature Gran % (Auto) 0.4 Neut % (Auto) 86.0 H Lymph % (Auto) 8.8 L Story % (Auto) 4.2 Eos % (Auto) 0.1 Baso % (Auto) 0.5 Lymph # (Auto) 1.7 Story # (Auto) 0.8 Eos # (Auto) 0.0 Baso # (Auto) 0.1 Abs Immat Gran (auto) 0.08 H Absolute Neuts (auto) 16.3 H Absolute Nucleated RBC 0.000 Nucleated RBC % (auto) 0.0 Smear Tech's Comments PT 10.0 L INR 0.8 L APTT 28.5 VBG pH VBG pCO2 VBG pO2 VBG HCO3 VBG O2 Saturation VBG Base Excess Sodium 140 Potassium 3.8 Chloride 105 Carbon Dioxide 14 L Anion Gap 25 H BUN 32 H Creatinine 1.88 H Estim Creat Clear Calc 41.1 Estimated GFR 38 POC Glucose 250 H Random Glucose 262 H Lactic Acid 7.3 H* Lactic Acid F/U @ 2Hr Lactic Acid F/U @ 4Hr Calcium 9.3 Magnesium Iron TIBC % Saturation Unsat Iron Binding Ferritin Total Bilirubin 0.2 Direct Bilirubin < 0.2 AST 14 ALT 13 Alkaline Phosphatase 108 Troponin I High Sens 5.2 B-Natriuretic Peptide 36 Total Protein 8.0 Albumin 4.3 Lipase 49 Vitamin B12 Folate Urine Color Urine Appearance Urine pH Ur Specific [place] Urine Protein Urine Glucose (UA) Urine Ketones Urine Blood Urine Nitrite Ur Leukocyte Esterase Urine RBC Urine WBC Ur Squamous Epith Cells Urine Bacteria Hyaline Casts Stool Occult Blood Influenza Type A (PCR) NEGATIVE Influenza Type B (PCR) NEGATIVE RSV RNA Qual (PCR) NEGATIVE SARS-CoV-2 RNA (RT-PCR) NEGATIVE Blood Type Antibody Screen 04/25/24 04/25/24 04/25/24 20:43 21:51 21:54 WBC 21.0 H RBC 5.12 Hgb 12.4 L Hct 37.4 L MCV 73.0 L MCH 24.2 L MCHC 33.2 RDW 18.2 H Plt Count 310 MPV 9.5 Immature Gran % (Auto) 0.5 H Neut % (Auto) 95.2 H Lymph % (Auto) 3.1 L Story % (Auto) 0.7 L Eos % (Auto) 0.3 Baso % (Auto) 0.2 Lymph # (Auto) 0.7 L Story # (Auto) 0.1 Eos # (Auto) 0.1 Baso # (Auto) 0.1 Abs Immat Gran (auto) 0.10 H Absolute Neuts (auto) 20.0 H Absolute Nucleated RBC 0.000 Nucleated RBC % (auto) 0.0 Smear Tech's Comments VERIFIED PT INR APTT VBG pH VBG pCO2 VBG pO2 VBG HCO3 VBG O2 Saturation VBG Base Excess Sodium Potassium Chloride Carbon Dioxide Anion Gap BUN Creatinine Estim Creat Clear Calc Estimated GFR POC Glucose Random Glucose Lactic Acid Lactic Acid F/U @ 2Hr 5.1 H* Lactic Acid F/U @ 4Hr Calcium Magnesium Iron TIBC % Saturation Unsat Iron Binding Ferritin Total Bilirubin Direct Bilirubin AST ALT Alkaline Phosphatase Troponin I High Sens B-Natriuretic Peptide Total Protein Albumin Lipase Vitamin B12 Folate Urine Color Urine Appearance Urine pH Ur Specific [place] Urine Protein Urine Glucose (UA) Urine Ketones Urine Blood Urine Nitrite Ur Leukocyte Esterase Urine RBC Urine WBC Ur Squamous Epith Cells Urine Bacteria Hyaline Casts Stool Occult Blood POSITIVE Influenza Type A (PCR) Influenza Type B (PCR) RSV RNA Qual (PCR) SARS-CoV-2 RNA (RT-PCR) Blood Type B Positive Antibody Screen NEGATIVE 04/26/24 04/26/24 04/26/24 00:05 00:14 01:21 WBC 20.2 H RBC 5.38 Hgb 13.1 L Hct 39.5 L MCV 73.4 L MCH 24.3 L MCHC 33.2 RDW 18.6 H Plt Count 328 MPV 9.2 L Immature Gran % (Auto) 0.7 H Neut % (Auto) 95.6 H Lymph % (Auto) 2.9 L Story % (Auto) 0.4 L Eos % (Auto) 0.2 Baso % (Auto) 0.2 Lymph # (Auto) 0.6 L Story # (Auto) 0.1 Eos # (Auto) 0.0 Baso # (Auto) 0.0 Abs Immat Gran (auto) 0.14 H Absolute Neuts (auto) 19.3 H Absolute Nucleated RBC 0.000 Nucleated RBC % (auto) 0.0 Smear Tech's Comments PT INR APTT VBG pH VBG pCO2 VBG pO2 VBG HCO3 VBG O2 Saturation VBG Base Excess Sodium 141 Potassium 4.7 D Chloride 110 H Carbon Dioxide 16 L Anion Gap 20 BUN 32 H Creatinine 1.82 H Estim Creat Clear Calc 42.5 Estimated GFR 40 POC Glucose Random Glucose 326 H Lactic Acid Lactic Acid F/U @ 2Hr Lactic Acid F/U @ 4Hr 2.1 H* Calcium 8.8 Magnesium 2.2 Iron TIBC % Saturation Unsat Iron Binding Ferritin Total Bilirubin Direct Bilirubin AST ALT Alkaline Phosphatase Troponin I High Sens B-Natriuretic Peptide Total Protein Albumin Lipase Vitamin B12 Folate Urine Color Yellow Urine Appearance Clear Urine pH 5.0 Ur Specific [place] 1.010 Urine Protein 300 (3+) H Urine Glucose (UA) Negative Urine Ketones Trace Urine Blood Trace H Urine Nitrite Negative Ur Leukocyte Esterase Trace H Urine RBC 0-2 Urine WBC 0-5 Ur Squamous Epith Cells 0-2 Urine Bacteria None Seen Hyaline Casts 6-10 Stool Occult Blood Influenza Type A (PCR) Influenza Type B (PCR) RSV RNA Qual (PCR) SARS-CoV-2 RNA (RT-PCR) Blood Type Antibody Screen 04/26/24 04/26/24 04/26/24 01:21 01:38 05:28 WBC RBC Hgb Hct MCV MCH MCHC RDW Plt Count MPV Immature Gran % (Auto) Neut % (Auto) Lymph % (Auto) Story % (Auto) Eos % (Auto) Baso % (Auto) Lymph # (Auto) Story # (Auto) Eos # (Auto) Baso # (Auto) Abs Immat Gran (auto) Absolute Neuts (auto) Absolute Nucleated RBC Nucleated RBC % (auto) Smear Tech's Comments PT INR APTT VBG pH 7.43 VBG pCO2 26 VBG pO2 134 VBG HCO3 18 L VBG O2 Saturation 99.0 VBG Base Excess -4.5 Sodium Potassium Chloride Carbon Dioxide Anion Gap BUN Creatinine Estim Creat Clear Calc Estimated GFR POC Glucose 298 H Random Glucose Lactic Acid Lactic Acid F/U @ 2Hr Lactic Acid F/U @ 4Hr Calcium Magnesium 2.2 Iron TIBC % Saturation Unsat Iron Binding Ferritin Total Bilirubin 0.3 Direct Bilirubin AST 15 ALT 16 Alkaline Phosphatase 113 Troponin I High Sens B-Natriuretic Peptide Total Protein 8.0 Albumin 4.4 Lipase 29 Vitamin B12 Folate Urine Color Urine Appearance Urine pH Ur Specific [place] Urine Protein Urine Glucose (UA) Urine Ketones Urine Blood Urine Nitrite Ur Leukocyte Esterase Urine RBC Urine WBC Ur Squamous Epith Cells Urine Bacteria Hyaline Casts Stool Occult Blood Influenza Type A (PCR) Influenza Type B (PCR) RSV RNA Qual (PCR) SARS-CoV-2 RNA (RT-PCR) Blood Type Antibody Screen 04/26/24 04/26/24 04/26/24 06:01 11:25 16:06 WBC 14.8 H RBC 4.79 Hgb 11.6 L Hct 35.6 L MCV 74.3 L MCH 24.2 L MCHC 32.6 RDW 18.6 H Plt Count 284 MPV 9.9 Immature Gran % (Auto) Neut % (Auto) Lymph % (Auto) Story % (Auto) Eos % (Auto) Baso % (Auto) Lymph # (Auto) Story # (Auto) Eos # (Auto) Baso # (Auto) Abs Immat Gran (auto) Absolute Neuts (auto) Absolute Nucleated RBC 0.000 Nucleated RBC % (auto) 0.0 Smear Tech's Comments PT INR APTT VBG pH VBG pCO2 VBG pO2 VBG HCO3 VBG O2 Saturation VBG Base Excess Sodium 140 Potassium 4.7 Chloride 111 H Carbon Dioxide 19 L Anion Gap 15 BUN 29 H Creatinine 1.45 H Estim Creat Clear Calc 53.3 Estimated GFR 52 POC Glucose 146 H 136 H Random Glucose 309 H Lactic Acid Lactic Acid F/U @ 2Hr Lactic Acid F/U @ 4Hr Calcium 8.2 L D Magnesium Iron TIBC % Saturation Unsat Iron Binding Ferritin Total Bilirubin 0.2 Direct Bilirubin AST 14 ALT 13 Alkaline Phosphatase 96 Troponin I High Sens B-Natriuretic Peptide Total Protein 6.7 Albumin 3.7 Lipase Vitamin B12 Folate Urine Color Urine Appearance Urine pH Ur Specific [place] Urine Protein Urine Glucose (UA) Urine Ketones Urine Blood Urine Nitrite Ur Leukocyte Esterase Urine RBC Urine WBC Ur Squamous Epith Cells Urine Bacteria Hyaline Casts Stool Occult Blood Influenza Type A (PCR) Influenza Type B (PCR) RSV RNA Qual (PCR) SARS-CoV-2 RNA (RT-PCR) Blood Type Antibody Screen 04/26/24 04/27/24 04/27/24 22:47 06:01 07:44 WBC 16.6 H RBC 4.31 L Hgb 10.6 L Hct 32.9 L MCV 76.3 L MCH 24.6 L MCHC 32.2 RDW 18.7 H Plt Count 235 MPV 9.7 Immature Gran % (Auto) 0.5 H Neut % (Auto) 84.4 H Lymph % (Auto) 9.6 L Story % (Auto) 5.1 Eos % (Auto) 0.1 Baso % (Auto) 0.3 Lymph # (Auto) 1.6 Story # (Auto) 0.9 Eos # (Auto) 0.0 Baso # (Auto) 0.1 Abs Immat Gran (auto) 0.08 H Absolute Neuts (auto) 14.1 H Absolute Nucleated RBC 0.000 Nucleated RBC % (auto) 0.0 Smear Tech's Comments PT INR APTT VBG pH VBG pCO2 VBG pO2 VBG HCO3 VBG O2 Saturation VBG Base Excess Sodium 143 Potassium 4.0 Chloride 115 H Carbon Dioxide 19 L Anion Gap 13 BUN 13 Creatinine 0.87 Estim Creat Clear Calc 88.9 Estimated GFR > 60 POC Glucose 173 H 112 Random Glucose 133 H Lactic Acid Lactic Acid F/U @ 2Hr Lactic Acid F/U @ 4Hr Calcium 7.7 L D Magnesium Iron TIBC % Saturation Unsat Iron Binding Ferritin Total Bilirubin Direct Bilirubin AST ALT Alkaline Phosphatase Troponin I High Sens B-Natriuretic Peptide Total Protein Albumin Lipase Vitamin B12 Folate Urine Color Urine Appearance Urine pH Ur Specific [place] Urine Protein Urine Glucose (UA) Urine Ketones Urine Blood Urine Nitrite Ur Leukocyte Esterase Urine RBC Urine WBC Ur Squamous Epith Cells Urine Bacteria Hyaline Casts Stool Occult Blood Influenza Type A (PCR) Influenza Type B (PCR) RSV RNA Qual (PCR) SARS-CoV-2 RNA (RT-PCR) Blood Type Antibody Screen 04/27/24 04/27/24 04/27/24 07:55 10:23 11:59 WBC RBC Hgb Hct MCV MCH MCHC RDW Plt Count MPV Immature Gran % (Auto) Neut % (Auto) Lymph % (Auto) Story % (Auto) Eos % (Auto) Baso % (Auto) Lymph # (Auto) Story # (Auto) Eos # (Auto) Baso # (Auto) Abs Immat Gran (auto) Absolute Neuts (auto) Absolute Nucleated RBC Nucleated RBC % (auto) Smear Tech's Comments PT INR APTT VBG pH VBG pCO2 VBG pO2 VBG HCO3 VBG O2 Saturation VBG Base Excess Sodium Potassium Chloride Carbon Dioxide Anion Gap BUN Creatinine Estim Creat Clear Calc Estimated GFR POC Glucose 141 H 234 H 187 H Random Glucose Lactic Acid Lactic Acid F/U @ 2Hr Lactic Acid F/U @ 4Hr Calcium Magnesium Iron TIBC % Saturation Unsat Iron Binding Ferritin Total Bilirubin Direct Bilirubin AST ALT Alkaline Phosphatase Troponin I High Sens B-Natriuretic Peptide Total Protein Albumin Lipase Vitamin B12 Folate Urine Color Urine Appearance Urine pH Ur Specific [place] Urine Protein Urine Glucose (UA) Urine Ketones Urine Blood Urine Nitrite Ur Leukocyte Esterase Urine RBC Urine WBC Ur Squamous Epith Cells Urine Bacteria Hyaline Casts Stool Occult Blood Influenza Type A (PCR) Influenza Type B (PCR) RSV RNA Qual (PCR) SARS-CoV-2 RNA (RT-PCR) Blood Type Antibody Screen 04/27/24 04/27/24 04/28/24 15:52 21:00 04:07 WBC RBC Hgb Hct MCV MCH MCHC RDW Plt Count MPV Immature Gran % (Auto) Neut % (Auto) Lymph % (Auto) Story % (Auto) Eos % (Auto) Baso % (Auto) Lymph # (Auto) Story # (Auto) Eos # (Auto) Baso # (Auto) Abs Immat Gran (auto) Absolute Neuts (auto) Absolute Nucleated RBC Nucleated RBC % (auto) Smear Tech's Comments PT INR APTT VBG pH VBG pCO2 VBG pO2 VBG HCO3 VBG O2 Saturation VBG Base Excess Sodium Potassium Chloride Carbon Dioxide Anion Gap BUN Creatinine Estim Creat Clear Calc Estimated GFR POC Glucose 159 H 76 120 H Random Glucose Lactic Acid Lactic Acid F/U @ 2Hr Lactic Acid F/U @ 4Hr Calcium Magnesium Iron TIBC % Saturation Unsat Iron Binding Ferritin Total Bilirubin Direct Bilirubin AST ALT Alkaline Phosphatase Troponin I High Sens B-Natriuretic Peptide Total Protein Albumin Lipase Vitamin B12 Folate Urine Color Urine Appearance Urine pH Ur Specific [place] Urine Protein Urine Glucose (UA) Urine Ketones Urine Blood Urine Nitrite Ur Leukocyte Esterase Urine RBC Urine WBC Ur Squamous Epith Cells Urine Bacteria Hyaline Casts Stool Occult Blood Influenza Type A (PCR) Influenza Type B (PCR) RSV RNA Qual (PCR) SARS-CoV-2 RNA (RT-PCR) Blood Type Antibody Screen 04/28/24 04/28/24 04/28/24 06:13 07:34 09:55 WBC 12.9 H RBC 4.16 L Hgb 10.1 L Hct 31.6 L MCV 76.0 L MCH 24.3 L MCHC 32.0 RDW 18.5 H Plt Count 216 MPV 10.4 Immature Gran % (Auto) 0.5 H Neut % (Auto) 81.1 H Lymph % (Auto) 10.5 L Story % (Auto) 6.4 Eos % (Auto) 1.1 Baso % (Auto) 0.4 Lymph # (Auto) 1.4 Story # (Auto) 0.8 Eos # (Auto) 0.1 Baso # (Auto) 0.1 Abs Immat Gran (auto) 0.07 H Absolute Neuts (auto) 10.5 H Absolute Nucleated RBC 0.000 Nucleated RBC % (auto) 0.0 Smear Tech's Comments PT INR APTT VBG pH VBG pCO2 VBG pO2 VBG HCO3 VBG O2 Saturation VBG Base Excess Sodium 140 Potassium 3.8 Chloride 114 H Carbon Dioxide 20 L Anion Gap 10 L BUN 10 Creatinine 0.93 Estim Creat Clear Calc 83.2 Estimated GFR > 60 POC Glucose 156 H Random Glucose 170 H Lactic Acid Lactic Acid F/U @ 2Hr Lactic Acid F/U @ 4Hr Calcium 7.8 L Magnesium Iron 24 L TIBC 233 % Saturation 10 L Unsat Iron Binding 209 Ferritin 58 Total Bilirubin Direct Bilirubin AST ALT Alkaline Phosphatase Troponin I High Sens B-Natriuretic Peptide Total Protein Albumin Lipase Vitamin B12 270 Folate > 20.0 Urine Color Urine Appearance Urine pH Ur Specific [place] Urine Protein Urine Glucose (UA) Urine Ketones Urine Blood Urine Nitrite Ur Leukocyte Esterase Urine RBC Urine WBC Ur Squamous Epith Cells Urine Bacteria Hyaline Casts Stool Occult Blood Influenza Type A (PCR) Influenza Type B (PCR) RSV RNA Qual (PCR) SARS-CoV-2 RNA (RT-PCR) Blood Type Antibody Screen 04/28/24 04/28/24 04/28/24 11:18 15:54 20:42 WBC RBC Hgb Hct MCV MCH MCHC RDW Plt Count MPV Immature Gran % (Auto) Neut % (Auto) Lymph % (Auto) Story % (Auto) Eos % (Auto) Baso % (Auto) Lymph # (Auto) Story # (Auto) Eos # (Auto) Baso # (Auto) Abs Immat Gran (auto) Absolute Neuts (auto) Absolute Nucleated RBC Nucleated RBC % (auto) Smear Tech's Comments PT INR APTT VBG pH VBG pCO2 VBG pO2 VBG HCO3 VBG O2 Saturation VBG Base Excess Sodium Potassium Chloride Carbon Dioxide Anion Gap BUN Creatinine Estim Creat Clear Calc Estimated GFR POC Glucose 213 H 137 H 265 H Random Glucose Lactic Acid Lactic Acid F/U @ 2Hr Lactic Acid F/U @ 4Hr Calcium Magnesium Iron TIBC % Saturation Unsat Iron Binding Ferritin Total Bilirubin Direct Bilirubin AST ALT Alkaline Phosphatase Troponin I High Sens B-Natriuretic Peptide Total Protein Albumin Lipase Vitamin B12 Folate Urine Color Urine Appearance Urine pH Ur Specific [place] Urine Protein Urine Glucose (UA) Urine Ketones Urine Blood Urine Nitrite Ur Leukocyte Esterase Urine RBC Urine WBC Ur Squamous Epith Cells Urine Bacteria Hyaline Casts Stool Occult Blood Influenza Type A (PCR) Influenza Type B (PCR) RSV RNA Qual (PCR) SARS-CoV-2 RNA (RT-PCR) Blood Type Antibody Screen 04/29/24 04/29/24 04/29/24 06:19 07:46 11:53 WBC 9.2 RBC 4.74 Hgb 11.7 L Hct 35.3 L MCV 74.5 L MCH 24.7 L MCHC 33.1 RDW 18.3 H Plt Count 234 MPV 10.5 Immature Gran % (Auto) 0.4 Neut % (Auto) 73.5 H Lymph % (Auto) 17.3 L Story % (Auto) 6.5 Eos % (Auto) 1.9 Baso % (Auto) 0.4 Lymph # (Auto) 1.6 Story # (Auto) 0.6 Eos # (Auto) 0.2 Baso # (Auto) 0.0 Abs Immat Gran (auto) 0.04 H Absolute Neuts (auto) 6.7 Absolute Nucleated RBC 0.000 Nucleated RBC % (auto) 0.0 Smear Tech's Comments PT INR APTT VBG pH VBG pCO2 VBG pO2 VBG HCO3 VBG O2 Saturation VBG Base Excess Sodium 140 Potassium 3.5 Chloride 107 Carbon Dioxide 22 Anion Gap 15 BUN 8 L Creatinine 0.88 Estim Creat Clear Calc 87.9 Estimated GFR > 60 POC Glucose 159 H 171 H Random Glucose 143 H Lactic Acid Lactic Acid F/U @ 2Hr Lactic Acid F/U @ 4Hr Calcium 8.8 D Magnesium Iron TIBC % Saturation Unsat Iron Binding Ferritin Total Bilirubin Direct Bilirubin AST ALT Alkaline Phosphatase Troponin I High Sens B-Natriuretic Peptide Total Protein Albumin Lipase Vitamin B12 Folate Urine Color Urine Appearance Urine pH Ur Specific [place] Urine Protein Urine Glucose (UA) Urine Ketones Urine Blood Urine Nitrite Ur Leukocyte Esterase Urine RBC Urine WBC Ur Squamous Epith Cells Urine Bacteria Hyaline Casts Stool Occult Blood Influenza Type A (PCR) Influenza Type B (PCR) RSV RNA Qual (PCR) SARS-CoV-2 RNA (RT-PCR) Blood Type Antibody Screen 04/29/24 16:40 WBC RBC Hgb Hct MCV MCH MCHC RDW Plt Count MPV Immature Gran % (Auto) Neut % (Auto) Lymph % (Auto) Story % (Auto) Eos % (Auto) Baso % (Auto) Lymph # (Auto) Story # (Auto) Eos # (Auto) Baso # (Auto) Abs Immat Gran (auto) Absolute Neuts (auto) Absolute Nucleated RBC Nucleated RBC % (auto) Smear Tech's Comments PT INR APTT VBG pH VBG pCO2 VBG pO2 VBG HCO3 VBG O2 Saturation VBG Base Excess Sodium Potassium Chloride Carbon Dioxide Anion Gap BUN Creatinine Estim Creat Clear Calc Estimated GFR POC Glucose 184 H Random Glucose Lactic Acid Lactic Acid F/U @ 2Hr Lactic Acid F/U @ 4Hr Calcium Magnesium Iron TIBC % Saturation Unsat Iron Binding Ferritin Total Bilirubin Direct Bilirubin AST ALT Alkaline Phosphatase Troponin I High Sens B-Natriuretic Peptide Total Protein Albumin Lipase Vitamin B12 Folate Urine Color Urine Appearance Urine pH Ur Specific [place] Urine Protein Urine Glucose (UA) Urine Ketones Urine Blood Urine Nitrite Ur Leukocyte Esterase Urine RBC Urine WBC Ur Squamous Epith Cells Urine Bacteria Hyaline Casts Stool Occult Blood Influenza Type A (PCR) Influenza Type B (PCR) RSV RNA Qual (PCR) SARS-CoV-2 RNA (RT-PCR) Blood Type Antibody Screen Assessment and Plan Final Anesthetic Review Family History of Problems with Anesthesia: No History of Problems with Anesthesia: No
--- NOTE | 2024-04-29 17:35 | W.PM.OPN ---
Operative Note Operative Note Date of Service: 04/29/24 Narrative: Procedure Description: EGD Indication: coffee ground emesis Anesthesia: MAC FLEXIBLE TRANSORAL UPPER GASTROINTESTINAL ENDOSCOPY UPPER ENDOSCOPY Consent: Indications for the procedure and potential complications of bleeding, perforation, reaction to medications and missed diagnosis were discussed with the patient and informed consent was obtained. Instrument: Olympus GIF H 190 J mid size upper endoscope Monitoring: Vital signs and clinical assessment, continuous EKG monitoring, Pulse oximetry, Carbon Dioxide monitoring and blood pressure monitoring were done throughout the procedure. Procedure: The patient was placed in the left lateral decubitis position and pre-procedure medications were administered and a bite block was placed. The endoscope was inserted into the mouth and advanced under direct vision to the third part of duodenum. A careful inspection was made as the upper endoscope was withdrawn including a retroflexed examination of the proximal stomach; Findings and interventions are described below. Findings: Larynx:normal Esophagus: GE junction at 33 cm, diaphragm hiatus at 35 cm, consistent with 2 cm sliding hiatal hernia, patchy white plaques noted consistent with candidiasis. Bx taken from random esophagus. Stomach: patchy erythema . Biopsies were obtained. Grade 2 flap valve on retroflexed examination of the cardia. there was reduced peristalsis suspicious for gastroparesis Duodenum: Normal bulb and descending duodenum, Intervention: Biopsies as noted above, Impression/Findings: gastritis esophgeal candidiasis small hiatal hernia PLAN: cont with PPI GERD precautions 2 weeks of PO 100 mg fluconazole if ongoing sx then consider GES, low fat diet
--- NOTE | 2024-04-29 18:07 | PM.DS ---
DS: Providers Provider Date of Service: 04/29/24 Date of admission: 04/26/24 01:01 Primary care physician: Zari Henry MD Consults: 04/26/24 01:04 Consult to Gastroenterology Routine Consulting Provider: Marielle Aaron Reason for consultation: Upper GI bleeding Has provider been notified: Yes 04/26/24 07:39 Addiction Medicine Routine Consulting Provider: Addiction Covering Reason for consultation: meets criteria Has provider been notified: Yes DS: Diagnosis Discharge Diagnosis (1) Hematemesis: Status: Acute DS: Summary Hospital Course Hospital Course: History and physical as per admitting provider. Ciara Quiroga is a 48 years old man with past medical history significant for ongoing alcohol abuse, erosive esophagitis, gastritis, COPD, essential hypertension and type 2 diabetes mellitus presents to the emergency department complaining of severe abdominal pain that started today associated with coffee-ground vomiting. The pain is described as sharp radiating to the chest. Denied shortness of breath, cough, diarrhea, fever or chills. He did not report any acute urinary symptoms. He has also a tobacco smoker and denied illicit drug use. He underwent a EGD on August [address] Ewing that showed erosive gastritis, gastritis and hiatal hernia. In the ED, he was found to have hypertension and tachycardia. His oxygen saturation is normal with 3 liters/minutes supplemental oxygen. Blood workup is remarkable for leukocytosis of 19, hemoglobin is 12.4 and platelets are normal. INR is 0.8. Glucose 250, CO2 is 14, BUN 32 and creatinine of 1.88 (prior 1.26). Initial lactic acid was 7.3. LFTs are normal. Chest, abdomen pelvis CT scan showed no acute findings except for distal thoracic esophagus thickening. 48-year-old man treated for suspected upper GI bleed and chronic anemia. Patient has a history of alcohol abuse with high risk for withdrawal and was placed on phenobarbital protocol, CIWA, IV thiamine and oral folic acid. He was seen evaluated by Gastroenterology, had EGD today which showed some gastritis and probable gastroparesis. Plan is for him to continue on PPI indefinitely and fluconazole for 2 weeks. He can follow up with Gastroenterology as needed outpatient. Was also treated for KELVIN likely hypovolemia. Treated with IV fluids and resolved. Plan is for discharge home tonight and patient is in agreement. Chronic hypoxemic respiratory failure secondary to COPD. Reports intermittent use of 4 L of oxygen at baseline. Diabetes mellitus type 2. Continue home management of diabetes Hypertension. Continue home medications Time Attestation Discharge Coordination Time (in mins): 35 Quality: Safe Use of Opioids Does Pt have an Active Cancer Diagnosis on the Problem List?: No Quality: Stroke Does the patient have a stroke diagnosis?: No Physical Exam Vital Signs: Vital Signs: Last Vital Signs Temp 97.7 F 04/29/24 18:00 Pulse 74 04/29/24 18:00 Resp 21 H 04/29/24 18:00 BP 151/72 H 04/29/24 18:00 Pulse Ox 95 04/29/24 18:00 O2 Del Method Room Air 04/29/24 18:00 O2 Flow Rate 3 04/29/24 17:45 BMI result Body Mass Index 22.5 Appearing in no acute distress head is normocephalic atraumatic eyes pupils are PERRLA sclera is anicteric mouth throat mucous membranes are intact and moist neck is supple no lymphadenopathy, no JVD noted lung sounds are clear to auscultation heart regular rate rhythm, clear S1, S2 positive bowel sounds, abdomen is soft, nontender neuro patient is alert x3, no focal deficits DS: Data Data Completed and Pending Completed studies during hospitalization [Text1]: Procedures Assistance with Respiratory Ventilation, Less than 24 Consecutive Hours, Continuous Positive Airway Pressure (04/17/23) Detoxification Services for Substance Abuse Treatment (09/07/22) Excision of Esophagus, Via Natural or Artificial Opening Endoscopic, Diagnostic (09/07/22) Excision of Stomach, Pylorus, Via Natural or Artificial Opening Endoscopic, Diagnostic (09/07/22) Introduction of Remdesivir Anti-infective into Peripheral Vein, Percutaneous Approach, [employer] 5 (12/22/23) Pending studies at discharge: Pending at discharge 04/29/24 17:32 Surgical [PTH] Routine Labs on day of discharge: Laboratory Results - last 24 hr 04/28/24 04/29/24 04/29/24 20:42 06:19 07:46 WBC 9.2 RBC 4.74 Hgb 11.7 L Hct 35.3 L MCV 74.5 L MCH 24.7 L MCHC 33.1 RDW 18.3 H Plt Count 234 MPV 10.5 Immature Gran % (Auto) 0.4 Neut % (Auto) 73.5 H Lymph % (Auto) 17.3 L [place] % (Auto) 6.5 Eos % (Auto) 1.9 Baso % (Auto) 0.4 Lymph # (Auto) 1.6 [place] # (Auto) 0.6 Eos # (Auto) 0.2 Baso # (Auto) 0.0 Abs Immat Gran (auto) 0.04 H Absolute Neuts (auto) 6.7 Absolute Nucleated RBC 0.000 Nucleated RBC % (auto) 0.0 Sodium 140 Potassium 3.5 Chloride 107 Carbon Dioxide 22 Anion Gap 15 BUN 8 L Creatinine 0.88 Estim Creat Clear Calc 87.9 Estimated GFR > 60 POC Glucose 265 H 159 H Random Glucose 143 H Calcium 8.8 D 04/29/24 04/29/24 11:53 16:40 WBC RBC Hgb Hct MCV MCH MCHC RDW Plt Count MPV Immature Gran % (Auto) Neut % (Auto) Lymph % (Auto) [place] % (Auto) Eos % (Auto) Baso % (Auto) Lymph # (Auto) [place] # (Auto) Eos # (Auto) Baso # (Auto) Abs Immat Gran (auto) Absolute Neuts (auto) Absolute Nucleated RBC Nucleated RBC % (auto) Sodium Potassium Chloride Carbon Dioxide Anion Gap BUN Creatinine Estim Creat Clear Calc Estimated GFR POC Glucose 171 H 184 H Random Glucose Calcium Preliminary micro results at discharge 04/25/24 19:08 Blood Culture - Preliminary Blood - Venous No growth after 48 hours. 04/25/24 18:20 Blood Culture - Preliminary Blood - Venous No growth after 48 hours. Discharge Plan Discharge Anticipated Discharge Date/Time: 04/29/24 18:03 Patient Disposition: Home, Self-Care Discharge Diagnosis: Mild gastritis KELVIN Referrals: Zari Henry MD [Primary Care Provider] - 1 Week Discharge Medications: New fluconazole 100 mg tablet 100 mg PO DAILY Qty: 14 0RF Continued hydralazine 100 mg tablet 100 mg PO TID 30 Days Qty: 90 5RF sucralfate 1 gram Tablet 1 g PO QIDACHS Qty: 120 0RF trazodone 50 mg tablet 100 mg PO BEDTIME escitalopram oxalate 10 mg tablet 10 mg PO DAILY amlodipine 10 mg Tablet 10 mg PO DAILY 30 Days Qty: 30 0RF Protocol: Hold for SBP< HOLD for SBP < : 90 atorvastatin 40 mg tablet 40 mg PO DAILY gabapentin 300 mg capsule 300 mg PO TID Hold Instructions: Resume on 11/07/22. metoprolol succinate 100 mg tablet extended release 24 hr 100 mg PO DAILY omeprazole 40 mg capsule,delayed release(DR/EC) 40 mg PO DAILY@0630 magnesium oxide 400 mg (241.3 mg magnesium) Tablet 400 mg PO BIDPC Qty: 60 0RF fluticasone propion-salmeterol [Advair Diskus] 250-50 mcg/dose blister with device 1 ea inhalation BID multivitamin Tablet 1 tab PO DAILY insulin glargine [Lantus Solostar U-100 Insulin] 100 unit/mL (3 mL) insulin pen 27 unit subcut BEDTIME PRN (Reason: Hyperglycemia) Rx Instructions: pt uses as backup to insulin pump furosemide 40 mg tablet 80 mg PO DAILY furosemide 40 mg tablet 40 mg PO BEDTIME acetaminophen 500 mg capsule 1,000 mg PO Q6H PRN (Reason: fever or pain) Qty: 20 0RF albuterol sulfate 90 mcg/actuation HFA aerosol inhaler 2 puff inhalation Q4H PRN (Reason: bronchospasm) insulin lispro 100 unit/mL solution 10 - 14 unit subcut TID aspirin 81 mg tablet,delayed release (DR/EC) 81 mg PO DAILY Discharge Orders: Discharge Order (Routine); Ordered 04/29/24 Ordered By: Unique Rey Diet: Low fat, low cholesterol Activity on Discharge: As tolerated Stand Alone Forms: Patient Portal Discharge page Print Language: Citizen Of [place] Care Plan Goals: Do not drink alcohol, this can aggravate gastritis Health Concerns: Mild gastritis KELVIN Plan of Treatment: Follow-up with primary care provider as needed Take all medications as prescribed Assessment: See discharge summary
[2024-04-29 18:21] LABS: Glucose, Whole Blood 208 mg/dL (60-115)
[2024-04-29] MEDS: Insulin Lispro 100 UNIT/ML 3 ML VIAL SUBCUT (18:22)
== END 2024-04-29 18:39 | disposition home or self-care (01) | DRG 241 ==
LOC: HO.ED 22:55 → HO.EDOVER 04-26 01:05 → HO.IMC 04-26 04:44
PROVIDERS: Family Medicine; Internal Medicine Gastroenterology; Physician Assistant; Admitting Provider Internal Medicine; Emergency Provider Emergency Medicine; PCP Internal Medicine; Visit Provider Nurse Practitioner Acute Care
PROC: 0DJ08ZZ Inspection of Upper Intestinal Tract, Via Natural or Artificial Opening Endoscopic (ICD-10-PCS; CPT 43235; principal; 2024-04-29 15:30)
DX: K29.21 Alcoholic gastritis with bleeding (principal); N17.9 Acute kidney failure, unspecified; E87.20 Acidosis, unspecified; B37.81 Candidal esophagitis; J96.11 Chronic respiratory failure with hypoxia; E11.43 Type 2 diabetes mellitus with diabetic autonomic (poly)neuropathy; I50.32 Chronic diastolic (congestive) heart failure; K31.84 Gastroparesis; F10.10 Alcohol abuse, uncomplicated; I11.0 Hypertensive heart disease with heart failure; F17.210 Nicotine dependence, cigarettes, uncomplicated; D64.9 Anemia, unspecified; Z99.81 Dependence on supplemental oxygen; K44.9 Diaphragmatic hernia without obstruction or gangrene; J44.9 Chronic obstructive pulmonary disease, unspecified; Z20.822 Contact with and (suspected) exposure to COVID-19; Z71.6 Tobacco abuse counseling; Z79.4 Long term (current) use of insulin; Z79.51 Long term (current) use of inhaled steroids; Z79.82 Long term (current) use of aspirin; Z79.899 Other long term (current) drug therapy
CPT/HCPCS: 0241U; 36415; 71250; 74176; 80048; 80053; 80076; 81001; 82272; 82607; 82728; 82746; 82803; 82947; 83540; 83605; 83690; 83735; 83880; 84484; 85025; 85027; 85610; 85730; 86850; 86900; 86901; 87040; 88305; 88313; 88342; 93005; 94660; 99285; C9113; J0696; J1170; J1940; J2270; J2405; J2470; J2560; J2704; J2919; J3411; J3475; J7120

== ENCOUNTER → 2024-04-25 18:06 | Outpatient (BNV) | payer OTHER, SELFPAY | PROVIDERS: Admitting Provider Internal Medicine; Emergency Provider Emergency Medicine; PCP Internal Medicine; Visit Provider Internal Medicine Cardiovascular Disease | DX: R94.31 Abnormal electrocardiogram [ECG] [EKG] (principal) | CPT/HCPCS: 93010 ==

== ENCOUNTER → 2024-04-26 01:01 | Outpatient (BNV) | payer OTHER, SELFPAY | PROVIDERS: Admitting Provider Internal Medicine; Emergency Provider Emergency Medicine; PCP Internal Medicine; Visit Provider Internal Medicine Gastroenterology | DX: K92.0 Hematemesis (principal); K29.70 Gastritis, unspecified, without bleeding; B37.81 Candidal esophagitis | CPT/HCPCS: 43239; 99223; 99233 ==

== ENCOUNTER → 2024-04-26 01:01 | Outpatient (BNV) | payer OTHER, SELFPAY | PROVIDERS: Admitting Provider Internal Medicine; Emergency Provider Emergency Medicine; PCP Internal Medicine; Visit Provider Internal Medicine | DX: K92.2 Gastrointestinal hemorrhage, unspecified (principal) | CPT/HCPCS: 99223; 99232; 99239; 99499 ==

== ENCOUNTER 2024-06-02 12:42 | Inpatient (IN) | payer OTHER, SELFPAY ==
[2024-06-02] VITALS (8 sets, daily range): BP systolic 130–171; BP diastolic 72–85; PULSE 76–106; RESP 13–20; TEMP 36.4–37.4; O2SAT 96–98; BMI 23.3; BMI 21.1
--- NOTE | ~2024-06-02 | CT_ITS ---
EXAMINATION: CT ABDOMEN AND PELVIS WITHOUT CONTRAST CLINICAL INFORMATION: Left lower quadrant abdominal pain COMPARISON: Multiple priors with last abdomen and pelvic CT of 04/25/2024 TECHNIQUE: Multidetector volumetric imaging was performed from the superior aspect of the liver through the pubic symphysis. Sagittal and coronal reformatted images were obtained on the technologist's workstation. This CT examination was performed using dose optimization techniques as appropriate, variously including the following: *Automated exposure control *Adjustment of mA and/or kV according to patient size (this includes techniques or standardized protocols for targeted exams where dose is matched to indication/reason for exam; i.e. extremities or head) *Use of iterative reconstruction technique DLP: 352 mGy-cm FINDINGS: LUNG BASES: The visualized lung bases are unremarkable. Small hiatal hernia. LIVER, GALLBLADDER, AND BILIARY TREE: The liver is normal in size, shape, and attenuation. No focal hepatic lesion or biliary ductal dilatation is present. The gallbladder is unremarkable with no evidence of radiopaque gallstones, gallbladder wall thickening, or obvious pericholecystic inflammatory changes. PANCREAS: Unremarkable. SPLEEN: Unremarkable. ADRENAL GLANDS: Thickening of the bilateral adrenal glands is a stable finding since multiple previous CT scans dated back to 02/06/2019. No focal adrenal nodule. KIDNEYS AND URETERS: The kidneys are normal in size, shape, and attenuation. No hydronephrosis, hydroureter, or calculi seen. Mild bilateral perinephric stranding is likely within physiologic limits and similar finding is seen on multiple previous CT scans. BLADDER: Partially distended. No radiopaque calculi. GASTROINTESTINAL TRACT: The stomach is partially distended and grossly unremarkable. No abnormal small bowel dilatation. An appendix is normal. The colon is normal in caliber. No evidence of colonic wall thickening or pericolonic fat stranding. Isolated colonic diverticula are noted without acute diverticulitis. PERITONEAL CAVITY: No evidence of free intraperitoneal air or fluid. ABDOMINAL WALL: No significant hernia is appreciated. LYMPH NODES: No evidence of pathologically enlarged lymph nodes. VASCULAR: The aortoiliac vessels are normal in caliber. Moderate to extensive calcific atherosclerosis of the distal aorta and moderate calcific atherosclerosis of the iliac arteries is seen. PELVIC VISCERA: Unremarkable. OSSEOUS STRUCTURES: No acute or suspicious osseous abnormality. CT/CT abdomen pelvis wo IV con IMPRESSION: No acute abnormality is identified to explain patient's symptoms. Fleischner guidelines were followed.
--- NOTE | ~2024-06-02 | CT_ITS ---
EXAMINATION: CT CHEST WITHOUT CONTRAST CLINICAL INFORMATION: chest pain, rule esophageal rupture. COMPARISON: CT of the abdomen and pelvis yesterday. TECHNIQUE: Multidetector volumetric imaging was performed from the thoracic inlet through the lung bases without contrast. Water-soluble contrast was orally ingested prior to scanning an Sagittal and coronal reformatted images were obtained on the technologist workstation. Soft tissue and lung algorithms evaluated. Thick slab MIP images were performed to increase nodule conspicuity. This CT examination was performed using dose optimization techniques as appropriate, variously including the following: *Automated exposure control *Adjustment of mA and/or kV according to patient size (this includes techniques or standardized protocols for targeted exams where dose is matched to indication/reason for exam; i.e. extremities or head) *Use of iterative reconstruction technique DLP: 162 mGy-cm. FINDINGS: LUNG: The lungs are clear without focal opacity or nodule. MEDIASTINUM: I do not appreciate any evidence for contrast extravasation. No significant free fluid or free air within the mediastinum is less esophagus demonstrates a small amount of residual oral contrast in the distal most esophagus which could reflect component of reflux. Distal esophagitis cannot be excluded. The central vascular structures are unremarkable. No hilar or mediastinal lymphadenopathy. CORONARY ARTERY CALCIFICATION: Absent PERICARDIUM/PLEURA: No significant effusion. No pleural mass or thickening. THYROID/VISUALIZED LOWER NECK: Unremarkable. CHEST WALL/AXILLA: Subcutaneous nodules probably representing sebaceous cyst overlying the posterior right back skin surface VISUALIZED UPPER ABDOMEN: Unremarkable. BONES: Unremarkable CT/CT chest wo IV con IMPRESSION: I do not appreciate any evidence for contrast extravasation or significant free fluid within the mediastinum to suggest esophageal perforation. There is a small amount of residual oral contrast in the distal esophagus which could reflect a component of reflux. Distal esophagitis cannot be excluded with mild concentric wall thickening of the distal esophagus.
--- NOTE | ~2024-06-02 | XR_ITS ---
EXAMINATION: XR CHEST CLINICAL INFORMATION: Chest pain. COMPARISON: Chest AP upright 12/21/2023 TECHNIQUE: Frontal view of the chest was obtained. FINDINGS: The lungs are well-expanded and clear of acute process. Heart size and pulmonary vascularity is normal. No gross bony abnormality seen. XR/XR chest 1V IMPRESSION: Unremarkable chest examination.
--- NOTE | 2024-06-02 12:44 | ECG_ITS ---
Test Reason : REPEAT Blood Pressure : / mmHG Vent. Rate : 098 BPM Atrial Rate : 098 BPM P-R Int : 128 ms QRS Dur : 076 ms QT Int : 346 ms P-R-T Axes : 050 032 035 degrees QTc Int : 441 ms Normal sinus rhythm Minimal voltage criteria for LVH, may be normal variant ( Sokolow-Ahmadi ) Borderline ECG When compared with ECG of 25-APR-2024 18:16, Premature atrial complexes are no longer Present Referred By: Fercho Powell Electronically Signed By:INOCENCIO BERGMAN MD
--- NOTE | 2024-06-02 12:45 | ECG_ITS ---
Test Reason : CHEST PRESSURE Blood Pressure : / mmHG Vent. Rate : 089 BPM Atrial Rate : 089 BPM P-R Int : 124 ms QRS Dur : 074 ms QT Int : 374 ms P-R-T Axes : 049 047 031 degrees QTc Int : 455 ms Normal sinus rhythm Normal ECG No previous ECGs available Referred By: Fercho Powell Electronically Signed By:INOCENCIO BERGMAN MD
--- NOTE | 2024-06-02 13:09 | ED_ITS ---
HPI - Chest Pain General Chief Complaint: Chest Pain Stated Complaint: CHEST PRESSURE, X3 DAYS Time Seen by Provider: 06/02/24 12:57 Source: patient and EMS Mode of arrival: EMS Limitations: no limitations History of Present Illness ED Provider: DR. Powell HPI narrative: 48-year-old Male with past medical history significant for COPD on 4 L of supplemental oxygen at home, hypertension, DM type 2, sleep apnea uses CPAP machine, congestive heart failure, alcohol use, patient drink vodka last drink was a week ago patient came in by ambulance for 1 day of severe chest pain and difficulty breathing patient had exact similar episode a month ago had an upper endoscopy that revealed gastritis/esophageal candidiasis Required fluconazole for 1 week, small hiatal hernia. Patient require prior hospitalization for similar symptoms. Patient declined any blood in stool, no vomiting blood. Related Data Home Medications ?Medication ?Instructions ?Recorded ?Confirmed escitalopram oxalate 10 mg tablet 10 mg PO DAILY 08/01/22 04/26/24 trazodone 50 mg tablet 100 mg PO BEDTIME 08/01/22 04/26/24 aspirin 81 mg tablet,delayed 81 mg PO DAILY 10/06/22 04/26/24 release atorvastatin 40 mg tablet 40 mg PO DAILY 10/06/22 04/26/24 gabapentin 300 mg capsule 300 mg PO TID 10/06/22 04/26/24 metoprolol succinate 100 mg 100 mg PO DAILY 10/06/22 04/26/24 tablet,extended release 24 hr omeprazole 40 mg capsule,delayed 40 mg PO DAILY@0630 10/06/22 04/26/24 release furosemide 40 mg tablet 80 mg PO DAILY 06/26/23 04/26/24 insulin glargine 100 unit/mL (3 27 unit subcut BEDTIME PRN 06/26/23 02/20/24 mL) subcutaneous pen (Lantus Hyperglycemia Solostar U-100 Insulin) furosemide 40 mg tablet 40 mg PO BEDTIME 11/24/23 04/26/24 fluticasone 250 mcg-salmeterol 50 1 ea inhalation BID 12/22/23 04/26/24 mcg/dose blistr powdr for inhalation (Advair Diskus) multivitamin 1 tab PO DAILY 12/22/23 04/26/24 albuterol sulfate 90 mcg/actuation 2 puff inhalation Q4H PRN 04/26/24 04/26/24 aerosol inhaler bronchospasm insulin lispro 100 unit/mL 10 - 14 unit subcut TID 04/26/24 04/26/24 subcutaneous solution Previous Rx's ?Medication ?Instructions ?Recorded amlodipine 10 mg tablet 10 mg PO DAILY 30 days #30 tabs 08/07/22 magnesium oxide 400 mg (241.3 mg 400 mg PO BIDPC #60 tabs 08/20/22 magnesium) tablet sucralfate 1 gram tablet 1 g PO QIDACHS #120 tabs 09/10/22 hydralazine 100 mg tablet 100 mg PO TID 30 days #90 tabs 05/09/23 acetaminophen 500 mg capsule 1,000 mg (2 x 500 mg) PO Q6H PRN 12/21/23 fever or pain #20 caps fluconazole 100 mg tablet 100 mg PO DAILY #14 tabs 04/29/24 Allergies Allergy/AdvReac Type Severity Reaction Status Date / Time dulaglutide [From Trulicity] Allergy Unknown Verified 06/02/24 12:59 metformin [METFORMIN] AdvReac Mild DIARRHEA, Verified 06/02/24 12:59 nausea and vomiting Review of Systems 2 Review of Systems: all other systems are reviewed and are negative Constitutional: Reports as per HPI and Reports no additional constitutional complaints Eyes: Reports as per HPI and Reports no additional eye complaints Reports system reviewed and no additional complaints, except as documented Cardiovascular: Reports as per HPI and Reports no additional cardiovascular complaints Respiratory: Reports as per HPI and Reports no additional respiratory complaints Gastrointestinal: Reports as per HPI and Reports no additional gastrointestinal complaints Genitourinary: Reports no additional female genitourinary complaints Musculoskeletal: Reports no additional musculoskeletal complaints Skin/Breast: Reports system reviewed and no additional complaints, except as docu Psychiatric: Reports no additional psychiatric complaints Endocrine: Reports no additional endocrine complaints Hematologic/Lymphatic: Reports no additional hematologic/lymphatic complaints Allergic/Immunologic: Reports no additional allergic/immunologic complaints Reports system reviewed and no additional complaints, except as documented and Reports Abnormal speech present [facility] Past Medical History Medical History KELVIN (acute kidney injury) Hypertension Chronic heart failure with preserved ejection fraction (HFpEF) Acute respiratory failure with hypoxia Congestive heart failure CKD (chronic kidney disease) stage 1, GFR 90 ml/min or greater Depression COPD exacerbation YARELIS (obstructive sleep apnea) CHF exacerbation Hypoxia Acute respiratory failure Uncontrolled hypertension Acute on chronic diastolic (congestive) heart failure Acute on chronic anemia Hyperglycemia due to type 2 diabetes mellitus YARELIS (obstructive sleep apnea) Congestive heart failure Anxiety HLD (hyperlipidemia) Diabetes Hypercholesteremia HTN (hypertension) Asthma PAD (peripheral artery disease) Surgical History History of esophagogastroduodenoscopy S/P angiogram of extremity Family History Family History Father Alzheimer disease CAD (coronary artery disease) Social History Social History Household Members: Family Household Members Other:: girlfriend Housing: Apartment Do you presently have visiting nurse or other home services: No Unable to assess alcohol history related to: Unknown Alcohol intake: never Comment: low fall risk Patient Tobacco Use Status: Current everyday Tobacco user Tobacco use type: Cigarette Cigarettes Per Day: 5 Years Smoked: >30 Smoked in Last 30 Days: Yes e-Cigarette/Vaping Use: Never Used Second Hand Smoke Exposure: Yes Use of substances other than those prescribed or required for medical reasons: No Substance Use Type: Marijuana Advance Directives: Yes Advance Directives on File: Yes Advance Directives Date on File: 06/21/21 service: No Current occupational status: disabled Physical Exam 2 Vital Signs: Vital Signs: Last Vital Signs Temp 98.4 F 06/02/24 14:00 Pulse 85 06/02/24 14:24 Resp 18 06/02/24 14:24 BP 137/72 06/02/24 14:00 Pulse Ox 96 06/02/24 14:00 O2 Del Method Room Air 06/02/24 14:00 BMI result Body Mass Index 23.3 Vital signs have been reviewed and appear to be correct. Blood pressure elevated. Heart rate normal. Respiratory rate normal. Temperature normal. Oxygen saturation normal. Appearance: Alert. Oriented X3. No acute distress. Head: Normal external exam. Normocephalic. Atraumatic. No Thao signs noted. No raccoon eyes noted Eyes: PERRLA. EOMI. Conjunctiva and sclera normal. Eyelids normal. ENT: TM's Normal. Pharynx normal. Uvula midline. Moist mucous membranes. No trismus noted. No drooling noted. No muffled voice noted. Neck: Normal inspection. Neck supple. FROM. No adenopathy. Thyroid Normal. No meningeal signs. No neck mass noted. CVS: Normal heart rate and rhythm. Heart sound normal. No murmurs noted. Pulses normal throughout. Respiratory: No respiratory distress. Painless inspiration. Breath sounds normal. No wheezes/rales/rhonchi noted. Chest nontender. No accessory muscle usage noted or decreased air movement noted. Abdomen: Soft, mild epigastric tenderness. Bowel sounds normal in all 4 quadrants. No distention noted. No organomegaly noted. No visible injury noted. Back: No CVA tenderness. Full range of motion noted. Skin: Skin warm and dry. Normal skin color. Normal skin turgor. No rashes/lesions/lacerations noted. Extremities: No lower extremity edema. Extremities exhibit normal range of motion. Extremities nontender. Neuro: Oriented X 3. Cranial nerve exam: II-XII are grossly intact No motor deficit. No sensory deficit. Reflexes normal. Course Reevaluation(s) Reevaluation #1: 48-year-old male well known to us history of alcohol use presented with severe chest pain, normal troponin with unchanged EKG. Patient feels better with Protonix/Dilaudid for pain control. While patient in the ED start to develop left lower quadrant abdominal pain consider CT without contrast rule out acute intra abdominal pathology. Admit for further evaluation. Time: 16:08 Medications Administered Generic Name Dose Route Start Last Admin Trade Name Freq PRN Reason Stop Dose Admin Sodium Chloride 1,000 mls @ 999 mls/hr 06/02/24 15:30 06/02/24 15:50 Ns IV 06/02/24 16:30 999 mls/hr .Q1H1M DIONISIO Administration Sodium Chloride 3 ml 06/02/24 16:00 06/02/24 15:51 0.9 % Sodium Chloride Flush 3 Ml Syringe IVFLUSH 3 ml QSHIFT DIONISIO Administration Discontinued Medications Generic Name Dose Route Start Last Admin Trade Name Freq PRN Reason Stop Dose Admin Albuterol/Ipratropium 3 ml 06/02/24 14:18 06/02/24 14:23 Albuterol/Iprat 2.5/0.5mg 3 Ml Ampul.Neb INHALE 06/02/24 14:19 3 ml ONCE ONE Administration Hydromorphone HCl 1 mg 06/02/24 13:18 06/02/24 13:29 Hydromorphone Hcl 1 Mg/Ml Syringe IVPUSH 06/02/24 13:19 1 mg ONCE ONE Administration Protocol Morphine Sulfate 1 mg 06/02/24 15:09 06/02/24 15:14 Morphine Sulfate 2 Mg/Ml Cartridge IVPUSH 06/02/24 15:10 1 mg ONCE ONE Administration Protocol Pantoprazole Sodium 80 mg 06/02/24 13:18 06/02/24 13:30 Pantoprazole Sodium 40 Mg/10 Ml Vial IVPUSH 06/02/24 13:19 80 mg ONCE ONE Administration Medical Decision Making Differential Diagnosis Differential Diagnoses: The differential diagnosis associated with the presentation includes ( COPD exacerbation, ACS, pneumonia, pleural effusion, pneumothorax, electrolyte derangement, severe anemia, acute colitis, acute diverticulitis, acute pancreatitis, acute cholecystitis.) Admission/Observation Consideration of admission/observation: Escalation of care including admission/observation considered Consult Healthcare Provider Management of the patient was discussed with: Hospitalist ( Dr. Ortiz) Lab Data MDM Lab Attestation statement: I reviewed the patient's lab results. 06/02/24 13:42 06/02/24 13:42 Labs: Lab Results 06/02/24 06/02/24 06/02/24 Range/Units 13:41 13:42 15:03 WBC 13.7 H (4.8-10.8) X10*3/uL RBC 4.83 (4.60-5.80) X10*6/uL Hgb 11.9 L (14.0-18.0) g/dl Hct 35.4 L (42.0-52.0) % MCV 73.3 L (80.0-98.0) fL MCH 24.6 L (27.0-33.0) pg MCHC 33.6 (31.0-36.0) g/dl RDW 19.9 H (11.0-16.0) % Plt Count 343 D (160-400) X10*3/uL MPV 9.6 (9.4-12.4) fL Immature Gran % (Auto) 0.4 (0.0-0.4) % Neut % (Auto) 87.8 H (45-73) % Lymph % (Auto) 5.7 L (20-40) % [place] % (Auto) 5.4 (2-11) % Eos % (Auto) 0.4 (0-4) % Baso % (Auto) 0.3 (0-2) % Lymph # (Auto) 0.8 L (1.2-4.9) X10*3/uL [place] # (Auto) 0.7 (0.1-1.2) X10*3/uL Eos # (Auto) 0.1 (0.0-0.4) X10*3/uL Baso # (Auto) 0.0 (0.0-0.2) X10*3/uL Abs Immat Gran (auto) 0.06 H (0.00-0.03) X10*3/uL Absolute Neuts (auto) 12.1 H (2.0-8.3) x10*3/uL Absolute Nucleated RBC 0.000 (0.0-0.012) X10*3/uL Nucleated RBC % (auto) 0.0 (0.0-0.2) /100WBC Sodium 137 (135-145) mmol/L Potassium 3.9 (3.3-5.1) mmol/L Chloride 105 (96-108) mmol/L Carbon Dioxide 17 L (22-29) mmol/L Anion Gap 19 (12-20) BUN 25 H (9-16) mg/dL Creatinine 1.63 H (0.5-1.4) mg/dL Estim Creat Clear Calc 47.6 Estimated GFR 45 Random Glucose 295 H (60-115) mg/dL Calcium 8.5 (8.4-10.2) mg/dL Total Bilirubin 0.4 (0.0-1.0) mg/dL Direct Bilirubin 0.1 (0.0-0.5) mg/dL AST 25 (5-37) U/L ALT 19 (0-40) U/L Alkaline Phosphatase 97 (39-117) U/L Troponin I High Sens 10.2 D (<3.5-35.0) ng/L B-Natriuretic Peptide 175 H (<100) pg/mL Total Protein 6.8 (6.5-8.0) g/dL Albumin 3.7 (3.5-5.0) g/dL Lipase 46 (8-78) U/L Urine Color Yellow Urine Appearance Clear Urine pH 5.5 (5.0-9.0) Ur Specific [place] 1.015 (1.005-1.025) Urine Protein 300 (3+) H (Neg-Trace) mg/dL Urine Glucose (UA) 100 H (Negative) mg/dL Urine Ketones 15 (Negative) mg/dL Urine Blood Negative (Negative) Urine Nitrite Negative (Negative) Ur Leukocyte Esterase Negative (Negative) Urine RBC 0-2 (0-2) /HPF Urine WBC 0-5 (0-5) /HPF Ur Squamous Epith Cells 0-2 (0-2) /HPF Urine Bacteria None Seen (None Seen) Hyaline Casts 3-5 (0-2) /LPF Influenza Type A (PCR) NEGATIVE (Negative) Influenza Type B (PCR) NEGATIVE (Negative) RSV RNA Qual (PCR) NEGATIVE (Negative) SARS-CoV-2 RNA (RT-PCR) NEGATIVE (Negative) Independent Interpretation I performed an independent interpretation of an: EKG ( Normal sinus rhythm at 90 beats per minutes, LVH, normal intervals, nonspecific ST-T changes, no change from previous EKG.) and Plain X-Ray ( chest: No acute intrathoracic pathology.) Radiology Impression Discussion of test interpretation with radiology: I discussed test interpretation with the radiologist Chronic Conditions Patient?s care impacted by: Other ( Chronic alcohol use, gastritis, esophagitis, COPD.) Discharge Plan Discharge Clinical Impression: Chest pain, Esophagitis, COPD with acute exacerbation Patient Disposition: Admitted As Inpatient
[2024-06-02] MEDS: HYDROmorphone HCl 1 MG/ML SYRINGE IVPUSH (13:29)
[2024-06-02] MEDS: Pantoprazole Sodium 40 MG/10 ML VIAL 80 MG IVPUSH (13:30)
[2024-06-02 13:46] LABS: MANUAL DIFF FLAG NO
[2024-06-02 13:47] LABS: Basophils Percent Auto 0.3 % (0-2); Eosinophils Absolute Auto 0.1 X10*3/uL (0.0-0.4); Eosinophils Percent Auto 0.4 % (0-4); Hematocrit 35.4 % (42.0-52.0); Hemoglobin 11.9 g/dl (14.0-18.0); Imm Gran Abs Auto 0.06 X10*3/uL (0.00-0.03); Imm Gran Pct Auto 0.4 % (0.0-0.4); Lymphocytes Absolute Auto 0.8 X10*3/uL (1.2-4.9); Lymphocytes Percent Auto 5.7 % (20-40); Mean Corpuscular HGB Conc 33.6 g/dl (31.0-36.0); Mean Corpuscular Hemoglobin 24.6 pg (27.0-33.0); Mean Corpuscular Volume 73.3 fL (80.0-98.0); Mean Platelet Volume 9.6 fL (9.4-12.4); Monocytes Absolute Auto 0.7 X10*3/uL (0.1-1.2); Monocytes Percent Auto 5.4 % (2-11); Neutrophils Absolute Auto 12.1 x10*3/uL (2.0-8.3); Neutrophils Percent Auto 87.8 % (45-73); Platelet Count 343 X10*3/uL (160-400); Red Blood Count 4.83 X10*6/uL (4.60-5.80); Red Cell Distribution Width 19.9 % (11.0-16.0); White Blood Count 13.7 X10*3/uL (4.8-10.8)
--- NOTE | 2024-06-02 13:48 | PC.NURSE ---
Medicated per order, labs drawn and sent
[2024-06-02 14:04] LABS: Alanine Aminotransferase 19 U/L (0-40); Albumin Level 3.7 g/dL (3.5-5.0); Alkaline Phosphatase 97 U/L (39-117); Anion Gap 19 (12-20); Aspartate Amino Transferase 25 U/L (5-37); Bilirubin Direct 0.1 mg/dL (0.0-0.5); Bilirubin Total 0.4 mg/dL (0.0-1.0); Blood Urea Nitrogen 25 mg/dL (9-16); Calcium 8.5 mg/dL (8.4-10.2); Carbon Dioxide 17 mmol/L (22-29); Chloride 105 mmol/L (96-108); Creatinine Clr Calc Pharmacy 47.6; Estimated Glomerular Filt Rate 45; Glucose Random 295 mg/dL (60-115); Lipase 46 U/L (8-78); Potassium 3.9 mmol/L (3.3-5.1); Sodium 137 mmol/L (135-145); Total Protein 6.8 g/dL (6.5-8.0)
[2024-06-02 14:07] LABS: B Type Natriuretic Peptide 175 pg/mL (<100)
[2024-06-02 14:11] LABS: Troponin-I High Sensitivity 10.2 ng/L (<3.5-35.0)
[2024-06-02] MEDS: Albuterol/Iprat 2.5/0.5MG 3 ML AMPUL.NEB INHALE (14:23)
[2024-06-02 15:11] LABS: Appearance Urine Clear; Color Urine Yellow; Glucose Urine UA 100 mg/dL (Negative); Leukocyte Esterase Urine Negative (Negative); Nitrite Urine Negative (Negative); PH 5.5 (5.0-9.0); Specific Gravity - Urine 1.015 (1.005-1.025); UMIC TRIGGER UACC YES; Urine Blood Negative (Negative); Urine Ketones 15 mg/dL (Negative); Urine Protein 300 (3+) mg/dL (Neg-Trace)
[2024-06-02 15:12] LABS: Influenza A PCR NEGATIVE (Negative); Influenza B PCR NEGATIVE (Negative); Resp Syncy Virus RNA Qual PCR NEGATIVE (Negative); SARS COV2 PCR INHOUSE NEGATIVE (Negative)
[2024-06-02] MEDS: Morphine Sulfate 2 MG/ML CARTRIDGE 1 MG IVPUSH (15:14)
[2024-06-02 15:32] LABS: Bacteria Urine None Seen (None Seen); RBC Urine 0-2 /HPF (0-2); Squamous Epithelial Cell Urine 0-2 /HPF (0-2); WBC Urine 0-5 /HPF (0-5)
--- NOTE | 2024-06-02 15:44 | P.HPHOSP_ITS ---
History of Present Illness Date of Service: 06/02/24 Chief Complaint: Chest pain The patient is a 48-year-old alcoholic who presents to the emergency room with a several day history of nausea and dry heaving followed by substernal chest pain. The patient states this is similar to his prior presentation where he was treated for esophagitis. He states his last alcohol drink was more than a week ago. He denies hematemesis or coffee-grounds. He does report intermittent diarrhea for the last several days. He also reports inability to eat due to persistent nausea. In the emergency room patient's workup revealed acute kidney injury with serum creatinine nearly twice his baseline. He was treated with IV Protonix and IV narcotics. He reports improvement in his pain. He will now be admitted for intractable nausea and vomiting likely secondary to esophagitis/gastritis. Review of Systems 2 Review of Systems: Negative except HPI [facility] Medical History KELVIN (acute kidney injury) Hypertension Chronic heart failure with preserved ejection fraction (HFpEF) Acute respiratory failure with hypoxia Congestive heart failure CKD (chronic kidney disease) stage 1, GFR 90 ml/min or greater Depression COPD exacerbation YARELIS (obstructive sleep apnea) CHF exacerbation Hypoxia Acute respiratory failure Uncontrolled hypertension Acute on chronic diastolic (congestive) heart failure Acute on chronic anemia Hyperglycemia due to type 2 diabetes mellitus YARELIS (obstructive sleep apnea) Congestive heart failure Anxiety HLD (hyperlipidemia) Diabetes Hypercholesteremia HTN (hypertension) Asthma PAD (peripheral artery disease) Family History Father Alzheimer disease CAD (coronary artery disease) Surgical History History of esophagogastroduodenoscopy S/P angiogram of extremity Social History Household Members: Family Household Members Other:: girlfriend Housing: Apartment Do you presently have visiting nurse or other home services: No Unable to assess alcohol history related to: Unknown Alcohol intake: never Comment: low fall risk Patient Tobacco Use Status: Current everyday Tobacco user Tobacco use type: Cigarette Cigarettes Per Day: 5 Years Smoked: >30 Smoked in Last 30 Days: Yes e-Cigarette/Vaping Use: Never Used Second Hand Smoke Exposure: Yes Use of substances other than those prescribed or required for medical reasons: No Substance Use Type: Marijuana Advance Directives: Yes Advance Directives on File: Yes Advance Directives Date on File: 06/21/21 service: No Current occupational status: disabled Meds Allergies Allergy/AdvReac Type Severity Reaction Status Date / Time dulaglutide [From Trulicity] Allergy Unknown Verified 06/02/24 12:59 metformin [METFORMIN] AdvReac Mild DIARRHEA, Verified 06/02/24 12:59 nausea and vomiting Active Medications: Current Medications Acetaminophen (Acetaminophen 325 Mg Tablet) 650 mg PO Q6H PRN PRN Reason: Pain, Mild (Pain Scale 1-3), fever or headache Calcium Carbonate (Calcium Carbonate 750 Mg Tab.Chew) 750 mg PO Q4H PRN PRN Reason: Heartburn Sodium Chloride (Ns) 1,000 mls @ 999 mls/hr IV .Q1H1M [facility] Stop: 06/02/24 16:30 Magnesium Hydroxide (Milk Of Magnesia 30 Ml Oral.Susp) 30 ml PO DAILY PRN PRN Reason: Constipation Melatonin (Melatonin 3 Mg Tablet) 6 mg PO BEDTIME PRN PRN Reason: Insomnia Sodium Chloride (0.9 % Sodium Chloride Flush 3 Ml Syringe) 3 ml IVFLUSH [facility] Home Medications ?Medication ?Instructions ?Recorded ?Confirmed ?Last Taken ?Type escitalopram oxalate 10 mg tablet 10 mg PO DAILY 08/01/22 04/26/24 12/21/23 History trazodone 50 mg tablet 100 mg PO BEDTIME 08/01/22 04/26/24 12/21/23 History aspirin 81 mg tablet,delayed 81 mg PO DAILY 10/06/22 04/26/24 12/21/23 History release atorvastatin 40 mg tablet 40 mg PO DAILY 10/06/22 04/26/24 12/21/23 History gabapentin 300 mg capsule 300 mg PO TID 10/06/22 04/26/24 12/21/23 History metoprolol succinate 100 mg 100 mg PO DAILY 10/06/22 04/26/24 12/21/23 History tablet,extended release 24 hr omeprazole 40 mg capsule,delayed 40 mg PO DAILY@0630 10/06/22 04/26/24 12/21/23 History release furosemide 40 mg tablet 80 mg PO DAILY 06/26/23 04/26/24 12/21/23 History insulin glargine 100 unit/mL (3 27 unit subcut BEDTIME PRN 06/26/23 02/20/24 12/21/23 History mL) subcutaneous pen (Lantus Hyperglycemia Solostar U-100 Insulin) furosemide 40 mg tablet 40 mg PO BEDTIME 11/24/23 04/26/24 12/21/23 History fluticasone 250 mcg-salmeterol 50 1 ea inhalation BID 12/22/23 04/26/24 12/21/23 History mcg/dose blistr powdr for inhalation (Advair Diskus) multivitamin 1 tab PO DAILY 12/22/23 04/26/24 12/21/23 History albuterol sulfate 90 mcg/actuation 2 puff inhalation Q4H PRN 04/26/24 04/26/24 Unknown History aerosol inhaler bronchospasm insulin lispro 100 unit/mL 10 - 14 unit subcut TID 04/26/24 04/26/24 Unknown History subcutaneous solution Physical Exam 2 Vital Signs and Narrative: Vital Signs: Last Vital Signs Temp 98.4 F 06/02/24 14:00 Pulse 85 06/02/24 14:24 Resp 18 06/02/24 14:24 BP 137/72 06/02/24 14:00 Pulse Ox 96 06/02/24 14:00 O2 Del Method Room Air 06/02/24 14:00 BMI result Body Mass Index 23.3 Const: Other: Awake and alert Appears comfortable at rest Lungs clear Normal heart sounds Abdomen soft with epigastric tenderness without rebound or guarding Awake and alert, oriented x3, no focal deficits Results Labs 06/02/24 13:42 06/02/24 13:42 Labs: Laboratory Results - last 24 hr 06/02/24 06/02/24 06/02/24 13:41 13:42 15:03 MCV 73.3 L MCH 24.6 L MCHC 33.6 RDW 19.9 H Plt Count 343 D MPV 9.6 Immature Gran % (Auto) 0.4 Neut % (Auto) 87.8 H Lymph % (Auto) 5.7 L Gregg % (Auto) 5.4 Eos % (Auto) 0.4 Baso % (Auto) 0.3 Lymph # (Auto) 0.8 L [place] # (Auto) 0.7 Eos # (Auto) 0.1 Baso # (Auto) 0.0 Abs Immat Gran (auto) 0.06 H Absolute Neuts (auto) 12.1 H Absolute Nucleated RBC 0.000 Nucleated RBC % (auto) 0.0 Anion Gap 19 Estim Creat Clear Calc 47.6 Estimated GFR 45 Random Glucose 295 H Calcium 8.5 Total Bilirubin 0.4 Direct Bilirubin 0.1 AST 25 ALT 19 Alkaline Phosphatase 97 Troponin I High Sens 10.2 D B-Natriuretic Peptide 175 H Total Protein 6.8 Albumin 3.7 Lipase 46 Urine Color Yellow Urine Appearance Clear Urine pH 5.5 Ur Specific [place] 1.015 Urine Protein 300 (3+) H Urine Glucose (UA) 100 H Urine Ketones 15 Urine Blood Negative Urine Nitrite Negative Ur Leukocyte Esterase Negative Urine RBC 0-2 Urine WBC 0-5 Ur Squamous Epith Cells 0-2 Urine Bacteria None Seen Hyaline Casts 3-5 Influenza Type A (PCR) NEGATIVE Influenza Type B (PCR) NEGATIVE RSV RNA Qual (PCR) NEGATIVE SARS-CoV-2 RNA (RT-PCR) NEGATIVE Imaging Radiologist's Impressions: Impressions Chest X-Ray 06/02/24 13:05 IMPRESSION: Unremarkable chest examination. Assessment and Plan (1) Esophagitis: Status: Resolved Plan 48-year-old male with a past medical history of chronic alcohol abuse and dependence who presents with a several day history chest pain. His presentation is concerning for esophagitis. 1. Chest pain with intractable nausea Concerning for esophagitis We will continue with IV PPI NPO status Prior biopsies reviewed, shown to have active fungal infection. Reportedly was treated, patient unsure how long he took his antifungals Will start IV fluconazole as well Gastroenterology consult 2. KELVIN Likely due to hypovolemia as he has not been eating or drinking for several days We will give 1 L IVF and continue maintenance fluids 3. Alcohol abuse with dependence Reports his last drink more than 1 week ago At this time is not exhibiting any withdrawal symptoms, we will monitor with CIWA and initiate phenobarb if needed 4. COPD No exacerbation, continue baseline meds 5. Diabetes Sliding scale 6. Hypertension continue baseline meds Full Code DVT pptx mechanical due to concern of possible GI bleed Quality Stroke Does the patient have a stroke diagnosis?: No VTE Prior VTE?: No VTE Risk Level:: Medical - moderate - high VTE Device Contraindication: N/A - Device Ordered VTE Drug Contraindication: Treatment Not Indicated
[2024-06-02] MEDS: 0.9 % Sodium Chloride 1,000 ML 999 ML IV (15:50)
[2024-06-02] MEDS: 0.9 % Sodium Chloride Flush 3 ML SYRINGE IVFLUSH (15:51)
[2024-06-02] MEDS: Fluconazole in NaCl,Iso-Osm 400 MG/200 ML PIGGYBACK 100 MG IV (16:57)
--- NOTE | 2024-06-02 17:05 | PHA.MEDREC ---
Addendum entered by John Koenig [facility] 06/02/24 17:20: Med rec double checked by [facility] Original Note: Pharmacy Consult ? Medication Reconciliation Pharmacy has completed the medication reconciliation. Spoke with patient to confirm medications. He currently does not have his insulin pump on but when he does he uses humalog in it. His lantus is as needed if the pump is not working. He confirmed using fluconazole 200mg daily x14 days. The ferrous sulfate is on hold. He reports he took his medications this morning.
[2024-06-02] MEDS: Dextrose 5 % and 0.9 % NaCl 1,000 ML 100 ML IVCONT (18:18)
[2024-06-02 23:21] LABS: Glucose, Whole Blood 265 mg/dL (60-115)
[2024-06-02] MEDS: traZODone HCL 100 MG TABLET PO (23:30)
[2024-06-02] MEDS: Calcium Carbonate 750 MG TAB.CHEW PO (23:31)
[2024-06-02] MEDS: Insulin Lispro 100 UNIT/ML 3 ML VIAL SUBCUT (23:35)
[2024-06-03] VITALS (7 sets, daily range): BP systolic 148–173; BP diastolic 79–92; PULSE 76–88; RESP 18; TEMP 36.5–37.6; O2SAT 96–99
[2024-06-03] MEDS: Morphine Sulfate 2 MG/ML CARTRIDGE 1 MG IVPUSH ×2 (00:04→05:56)
[2024-06-03] MEDS: Nicotine 14 MG PATCH.TD24 TRANSDERMA ×2 (00:05→08:05)
[2024-06-03] MEDS: 0.9 % Sodium Chloride Flush 3 ML SYRINGE IVFLUSH ×3 (00:08→15:35)
[2024-06-03] MEDS: Dextrose 5 % and 0.9 % NaCl 1,000 ML 100 ML IVCONT ×2 (05:00→18:45)
[2024-06-03] MEDS: Pantoprazole Sodium 40 MG/10 ML VIAL IVPUSH ×2 (05:38→15:35)
[2024-06-03 06:54] LABS: Hematocrit 37.5 % (42.0-52.0); Hemoglobin 12.2 g/dl (14.0-18.0); Mean Corpuscular HGB Conc 32.5 g/dl (31.0-36.0); Mean Corpuscular Hemoglobin 24.4 pg (27.0-33.0); Mean Platelet Volume 10.2 fL (9.4-12.4); Platelet Count 353 X10*3/uL (160-400); Red Cell Distribution Width 20.4 % (11.0-16.0); White Blood Count 9.8 X10*3/uL (4.8-10.8)
[2024-06-03 07:07] LABS: Anion Gap 16 (12-20); Blood Urea Nitrogen 17 mg/dL (9-16); Calcium 8.5 mg/dL (8.4-10.2); Carbon Dioxide 18 mmol/L (22-29); Chloride 108 mmol/L (96-108); Estimated Glomerular Filt Rate > 60; Glucose Random 206 mg/dL (60-115); Potassium 3.3 mmol/L (3.3-5.1); Sodium 139 mmol/L (135-145)
[2024-06-03] MEDS: ondansetron HCL 4 MG/2 ML VIAL IVPUSH ×2 (08:05→18:53)
[2024-06-03] MEDS: amLODIPine Besylate 10 MG TABLET PO (08:05)
[2024-06-03] MEDS: Metoprolol Succinate ER 100 MG TAB.ER.24H PO (08:05)
[2024-06-03] MEDS: Insulin Lispro 100 UNIT/ML 3 ML VIAL SUBCUT ×3 (08:08→18:43)
[2024-06-03] MEDS: Calcium Carbonate 750 MG TAB.CHEW PO (08:14)
[2024-06-03 08:24] LABS: HIV AB/AG Nonreactive (Nonreactive); HIV Num 1 0.05 S/CO (0.00-0.99)
[2024-06-03 08:31] LABS: Glucose, Whole Blood 277 mg/dL (60-115)
--- NOTE | 2024-06-03 08:35 | MHC.CM.PN ---
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 PCP is Dr. Zari Henry and HCP is Darrick/Danny.
--- NOTE | 2024-06-03 09:17 | P.PNIM_ITS ---
Subjective Subjective Date of Service: 06/03/24 Interval History: f/u on chest pain, concern for esophagitis still complaining chest pain, nausea, and dizziness Physical Exam 2 Vital Signs: Vital Signs: Last Vital Signs Temp 97.7 F 06/03/24 07:37 Pulse 88 06/03/24 08:05 Resp 18 06/03/24 07:37 BP 168/92 H 06/03/24 08:05 Pulse Ox 98 06/03/24 07:37 O2 Del Method Room Air 06/03/24 07:37 BMI result Body Mass Index 21.1 Const: Other: General: AO X 3, no acute distress Resp: CTA bilateral CVS: S1,S2,RRR GI: +BS, NT, no distention Skin: No rash Neuro: motor grossly intact Psych: appropriate affect Objective Data Active Medications Acetaminophen (Acetaminophen 325 Mg Tablet) 650 mg PO Q6H PRN PRN Reason: Pain, Mild (Pain Scale 1-3), fever or headache Amlodipine Besylate (Amlodipine Besylate 10 Mg Tablet) 10 mg PO DAILY [facility]; Protocol Last Admin: 06/03/24 08:05 Dose: 10 mg Documented By: LEIGHTON Calcium Carbonate (Calcium Carbonate 750 Mg Tab.Chew) 750 mg PO Q4H PRN PRN Reason: Heartburn Last Admin: 06/03/24 08:14 Dose: 750 mg Documented By: LEIGHTON Fluconazole (Diflucan) 200 mg in 100 mls @ 100 mls/hr IV Q24H DIONISIO Dextrose/Sodium Chloride (D5ns) 1,000 mls @ 100 mls/hr IVCONT .Q10H [facility] Last Admin: 06/03/24 05:00 Dose: 100 mls/hr Documented By: BERENICE Insulin Human Lispro (Insulin Lispro 100 Unit/Ml 3 Ml Vial) 0 unit SUBCUT QIDACHS [facility]; Protocol Last Admin: 06/03/24 08:08 Dose: 6 unit Documented By: LEIGHTON Magnesium Hydroxide (Milk Of Magnesia 30 Ml Oral.Susp) 30 ml PO DAILY PRN PRN Reason: Constipation Melatonin (Melatonin 3 Mg Tablet) 6 mg PO BEDTIME PRN PRN Reason: Insomnia Metoprolol Succinate (Metoprolol Succinate Er 100 Mg Tab.Er.24h) 100 mg PO DAILY [facility]; Protocol Last Admin: 06/03/24 08:05 Dose: 100 mg Documented By: LEIGHTON Morphine Sulfate (Morphine Sulfate 2 Mg/Ml Cartridge) 2 mg IVPUSH Q6H PRN; Protocol PRN Reason: Pain, Severe (Pain Scale 7-10) Nicotine (Nicotine 14 Mg Patch.Td24) 14 mg TRANSDERMA DAILY [facility] Last Admin: 06/03/24 08:05 Dose: 14 mg Documented By: LEIGHTON Ondansetron HCl (Ondansetron Hcl 4 Mg/2 Ml Vial) 4 mg IVPUSH Q8H PRN PRN Reason: Nausea and Vomiting Last Admin: 06/03/24 08:05 Dose: 4 mg Documented By: LEIGHTON Pantoprazole Sodium (Pantoprazole Sodium 40 Mg/10 Ml Vial) 40 mg IVPUSH BID@0630,1630 [facility] Last Admin: 06/03/24 05:38 Dose: 40 mg Documented By: BERENICE Sodium Chloride (0.9 % Sodium Chloride Flush 3 Ml Syringe) 3 ml IVFLUSH QSHIFT [facility] Last Admin: 06/03/24 08:05 Dose: 3 ml Documented By: LEIGHTON Labs 06/03/24 06:12 06/03/24 06:12 Labs: Laboratory Results - last 24 hr 06/02/24 06/02/24 06/02/24 13:41 13:42 15:03 MCV 73.3 L MCH 24.6 L MCHC 33.6 RDW 19.9 H Plt Count 343 D MPV 9.6 Immature Gran % (Auto) 0.4 Neut % (Auto) 87.8 H Lymph % (Auto) 5.7 L [place] % (Auto) 5.4 Eos % (Auto) 0.4 Baso % (Auto) 0.3 Lymph # (Auto) 0.8 L [place] # (Auto) 0.7 Eos # (Auto) 0.1 Baso # (Auto) 0.0 Abs Immat Gran (auto) 0.06 H Absolute Neuts (auto) 12.1 H Absolute Nucleated RBC 0.000 Nucleated RBC % (auto) 0.0 Anion Gap 19 Estim Creat Clear Calc 47.6 Estimated GFR 45 POC Glucose Random Glucose 295 H Calcium 8.5 Total Bilirubin 0.4 Direct Bilirubin 0.1 AST 25 ALT 19 Alkaline Phosphatase 97 Troponin I High Sens 10.2 D B-Natriuretic Peptide 175 H Total Protein 6.8 Albumin 3.7 Lipase 46 Urine Color Yellow Urine Appearance Clear Urine pH 5.5 Ur Specific [place] 1.015 Urine Protein 300 (3+) H Urine Glucose (UA) 100 H Urine Ketones 15 Urine Blood Negative Urine Nitrite Negative Ur Leukocyte Esterase Negative Urine RBC 0-2 Urine WBC 0-5 Ur Squamous Epith Cells 0-2 Urine Bacteria None Seen Hyaline Casts 3-5 HIV 1&2 Ab/P24 Ag 4thGn Influenza Type A (PCR) NEGATIVE Influenza Type B (PCR) NEGATIVE RSV RNA Qual (PCR) NEGATIVE SARS-CoV-2 RNA (RT-PCR) NEGATIVE 06/02/24 06/02/24 06/03/24 16:48 23:11 06:12 MCV 75.0 L MCH 24.4 L MCHC 32.5 RDW 20.4 H Plt Count 353 MPV 10.2 Immature Gran % (Auto) Neut % (Auto) Lymph % (Auto) [place] % (Auto) Eos % (Auto) Baso % (Auto) Lymph # (Auto) [place] # (Auto) Eos # (Auto) Baso # (Auto) Abs Immat Gran (auto) Absolute Neuts (auto) Absolute Nucleated RBC 0.000 Nucleated RBC % (auto) 0.0 Anion Gap 16 Estim Creat Clear Calc 70.0 Estimated GFR > 60 POC Glucose 265 H Random Glucose 206 H Calcium 8.5 Total Bilirubin Direct Bilirubin AST ALT Alkaline Phosphatase Troponin I High Sens B-Natriuretic Peptide Total Protein Albumin Lipase Urine Color Urine Appearance Urine pH Ur Specific [place] Urine Protein Urine Glucose (UA) Urine Ketones Urine Blood Urine Nitrite Ur Leukocyte Esterase Urine RBC Urine WBC Ur Squamous Epith Cells Urine Bacteria Hyaline Casts HIV 1&2 Ab/P24 Ag 4thGn Nonreactive Influenza Type A (PCR) Influenza Type B (PCR) RSV RNA Qual (PCR) SARS-CoV-2 RNA (RT-PCR) 06/03/24 08:06 MCV MCH MCHC RDW Plt Count MPV Immature Gran % (Auto) Neut % (Auto) Lymph % (Auto) [place] % (Auto) Eos % (Auto) Baso % (Auto) Lymph # (Auto) [place] # (Auto) Eos # (Auto) Baso # (Auto) Abs Immat Gran (auto) Absolute Neuts (auto) Absolute Nucleated RBC Nucleated RBC % (auto) Anion Gap Estim Creat Clear Calc Estimated GFR POC Glucose 277 H Random Glucose Calcium Total Bilirubin Direct Bilirubin AST ALT Alkaline Phosphatase Troponin I High Sens B-Natriuretic Peptide Total Protein Albumin Lipase Urine Color Urine Appearance Urine pH Ur Specific [place] Urine Protein Urine Glucose (UA) Urine Ketones Urine Blood Urine Nitrite Ur Leukocyte Esterase Urine RBC Urine WBC Ur Squamous Epith Cells Urine Bacteria Hyaline Casts HIV 1&2 Ab/P24 Ag 4thGn Influenza Type A (PCR) Influenza Type B (PCR) RSV RNA Qual (PCR) SARS-CoV-2 RNA (RT-PCR) Assessment and Plan (1) Chest pain: Status: Acute (2) Esophagitis: Status: Acute Plan 48-year-old male with a past medical history of chronic alcohol abuse and dependence who presents with a several day history chest pain. His presentation is concerning for esophagitis. 1. Chest pain with intractable nausea Concerning for esophagitis We will continue with IV PPI NPO status Prior biopsies reviewed, shown to have active fungal infection. Reportedly was treated, patient unsure how long he took his antifungals continue IV fluconazole as well Gastroenterology consult 2. KELVIN--likely pre renal d/t dehydration. Resolved with IVF 3. Alcohol abuse with dependence Reports his last drink more than 1 week ago At this time is not exhibiting any withdrawal symptoms, we will monitor with CIWA and initiate phenobarb if needed 4. COPD No exacerbation, continue baseline meds 5. Diabetes Sliding scale 6. Hypertension continue baseline meds Full Code DVT pptx mechanical due to concern of possible GI bleed Quality Stroke Does the patient have a stroke diagnosis?: No VTE Prior VTE?: No VTE Risk Level:: Medical - moderate - high VTE Device Contraindication: N/A - Device Ordered VTE Drug Contraindication: Treatment Not Indicated
[2024-06-03 11:36] LABS: Glucose, Whole Blood 187 mg/dL (60-115)
--- NOTE | 2024-06-03 11:48 | MHC.RECOVRN ---
Attempted to meet with pt after consult placed for positive AUDIT C. Pt laying in bed, reporting not feeling well and asking t/w to return at a later time. Resources left at the bedside.
[2024-06-03] MEDS: Morphine Sulfate 2 MG/ML CARTRIDGE IVPUSH ×2 (11:58→18:42)
--- NOTE | 2024-06-03 12:17 | PM.GICN ---
History of Present Illness Data of Consult Service Date: 06/03/24 Requesting physician: [facility] [employer] Primary Care Provider: Zari Henry MD HPI Reason for consult: nausea, vomiting 48 year old man with hx of alcohol abuse, erosive esophagitis, gastritis, COPD, essential hypertension and type 2 diabetes mellitus who I am seeing for assessment for nausea, vomiting and retrosternal pain. Patient had drank 1 pint of vodka 1 week ago, after that he had ongoing continuous episodes of nausea and non bloody emesis, along with burning retrosternal pain, 10/10 without radiaiton and worse with food. He denies fever, chills but has noted SOB without wheezing or sputum. He feels symptoms are the same as prior presentation with esophagitis 04/26/24 That admission he had an EGd with candidiasis and gastritis with small hiatal hernia. He was recommended treatment with fluconazole. HGB stable at around 12 g/dl. Renal fn improved with fluids, trop neg, CXR- normal, CT a/P: no acute findings atherosclerosis noted. ECG: sinus rhythm Review of Systems Review of Systems: Constitutional : No Weight loss, No Fever, No Chills ENT/Mouth : No sore throat, No Rhinorrhea Eyes: No Swelling, No Redness Cardiovascular : + Chest Pain, No SOB, No Edema Respiratory : No Cough, No Sputum, No Wheezing Gastrointestinal : see HPI Genitourinary : NO Dysuria, No Urinary Frequency, No Hematuria, No Urgency Musculoskeletal : No joint pain, No Myalgias, No Joint Swelling Skin : No Skin Lesions, No rash Neuro : + Weakness, No Numbness, No Dizziness, No Headache Psych : No Anxiety/Panic, No Depression Heme/Lymph: No Bruising, No Lymphadenopathy Endocrine : No Polyuria, No Polydipsia All other systems reviewed and are negative. [facility] Past Medical History Medical History KELVIN (acute kidney injury) Hypertension Chronic heart failure with preserved ejection fraction (HFpEF) Acute respiratory failure with hypoxia Congestive heart failure CKD (chronic kidney disease) stage 1, GFR 90 ml/min or greater Depression COPD exacerbation YARELIS (obstructive sleep apnea) CHF exacerbation Hypoxia Acute respiratory failure Uncontrolled hypertension Acute on chronic diastolic (congestive) heart failure Acute on chronic anemia Hyperglycemia due to type 2 diabetes mellitus YARELIS (obstructive sleep apnea) Congestive heart failure Anxiety HLD (hyperlipidemia) Diabetes Hypercholesteremia HTN (hypertension) Asthma PAD (peripheral artery disease) Family History Family History Father Alzheimer disease CAD (coronary artery disease) Surgical History Surgical History History of esophagogastroduodenoscopy S/P angiogram of extremity Social History Social History Household Members: Family Household Members Other:: girlfriend Housing: Apartment Do you presently have visiting nurse or other home services: No Unable to assess alcohol history related to: Unknown Alcohol intake: never Comment: low fall risk Patient Tobacco Use Status: Current everyday Tobacco user Tobacco use type: Cigarette Cigarettes Per Day: 5 Years Smoked: >30 Smoked in Last 30 Days: Yes e-Cigarette/Vaping Use: Never Used Patient Given Instructions on How to Stop Smoking: No Second Hand Smoke Exposure: Yes Use of substances other than those prescribed or required for medical reasons: Yes Substance Use Type: Marijuana Substance Use Frequency: Monthly Currently Displaying Signs/Symptoms of Drug Intoxication Withdrawal: No Have you been hit, kicked, punched, or otherwise hurt by someone within the past year? If so, by whom?: No Do you feel safe in your current relationship?: Yes Is there a partner from a previous relationship who is making you feel unsafe now?: No Are you made to feel afraid or neglected: No Advance Directives: Yes Advance Directives on File: Yes Advance Directives Date on File: 06/21/21 Do you have a plan to hurt others: No Plan Recently lost weight without trying: No Eating poorly because of decreased appetite: No Nutrition Risks: No Nutritional Risk Poor oral hygiene: No service: No Current occupational status: disabled Meds Allergies Allergy/AdvReac Type Severity Reaction Status Date / Time dulaglutide [From Trulicity] Allergy Unknown Verified 06/02/24 12:59 metformin [METFORMIN] AdvReac Mild DIARRHEA, Verified 06/02/24 12:59 nausea and vomiting Active Medications: Current Medications Acetaminophen (Acetaminophen 325 Mg Tablet) 650 mg PO Q6H PRN PRN Reason: Pain, Mild (Pain Scale 1-3), fever or headache Amlodipine Besylate (Amlodipine Besylate 10 Mg Tablet) 10 mg PO DAILY [facility]; Protocol Last Admin: 06/03/24 08:05 Dose: 10 mg Calcium Carbonate (Calcium Carbonate 750 Mg Tab.Chew) 750 mg PO Q4H PRN PRN Reason: Heartburn Last Admin: 06/03/24 08:14 Dose: 750 mg Fluconazole (Diflucan) 200 mg in 100 mls @ 100 mls/hr IV Q24H [facility] Dextrose/Sodium Chloride (D5ns) 1,000 mls @ 100 mls/hr IVCONT .Q10H [facility] Last Admin: 06/03/24 05:00 Dose: 100 mls/hr Insulin Human Lispro (Insulin Lispro 100 Unit/Ml 3 Ml Vial) 0 unit SUBCUT QIDACHS [facility]; Protocol Last Admin: 06/03/24 11:55 Dose: 2 unit Lidocaine/Diphenhydr/Alum/Mg/Simeth (Mag&Al/Sim/Diphenhyd/Lidocaine 10 Ml Oral.Susp) 10 ml PO Q6H PRN; Protocol PRN Reason: Sore Throat Magnesium Hydroxide (Milk Of Magnesia 30 Ml Oral.Susp) 30 ml PO DAILY PRN PRN Reason: Constipation Melatonin (Melatonin 3 Mg Tablet) 6 mg PO BEDTIME PRN PRN Reason: Insomnia Metoprolol Succinate (Metoprolol Succinate Er 100 Mg Tab.Er.24h) 100 mg PO DAILY [facility]; Protocol Last Admin: 06/03/24 08:05 Dose: 100 mg Morphine Sulfate (Morphine Sulfate 2 Mg/Ml Cartridge) 2 mg IVPUSH Q6H PRN; Protocol PRN Reason: Pain, Severe (Pain Scale 7-10) Last Admin: 06/03/24 11:58 Dose: 2 mg Nicotine (Nicotine 14 Mg Patch.Td24) 14 mg TRANSDERMA DAILY [facility] Last Admin: 06/03/24 08:05 Dose: 14 mg Ondansetron HCl (Ondansetron Hcl 4 Mg/2 Ml Vial) 4 mg IVPUSH Q8H PRN PRN Reason: Nausea and Vomiting Last Admin: 06/03/24 08:05 Dose: 4 mg Pantoprazole Sodium (Pantoprazole Sodium 40 Mg/10 Ml Vial) 40 mg IVPUSH BID@0630,1630 [facility] Last Admin: 06/03/24 05:38 Dose: 40 mg Sodium Chloride (0.9 % Sodium Chloride Flush 3 Ml Syringe) 3 ml IVFLUSH QSHIFT [facility] Last Admin: 06/03/24 08:05 Dose: 3 ml Home Medications ?Medication ?Instructions ?Recorded ?Confirmed ?Last Taken ?Type escitalopram oxalate 10 mg tablet 10 mg PO DAILY 08/01/22 06/02/24 12/21/23 History trazodone 50 mg tablet 100 mg PO BEDTIME 08/01/22 06/02/24 12/21/23 History aspirin 81 mg tablet,delayed 81 mg PO DAILY 10/06/22 06/02/24 12/21/23 History release atorvastatin 40 mg tablet 40 mg PO DAILY 10/06/22 06/02/24 12/21/23 History gabapentin 300 mg capsule 300 mg PO TID 10/06/22 06/02/24 12/21/23 History metoprolol succinate 100 mg 100 mg PO DAILY 10/06/22 06/02/24 12/21/23 History tablet,extended release 24 hr omeprazole 40 mg capsule,delayed 40 mg PO DAILY@0630 10/06/22 06/02/24 12/21/23 History release furosemide 40 mg tablet 80 mg PO DAILY 06/26/23 06/02/24 12/21/23 History insulin glargine 100 unit/mL (3 27 unit subcut BEDTIME PRN 06/26/23 06/02/24 12/21/23 History mL) subcutaneous pen (Lantus Hyperglycemia Solostar U-100 Insulin) furosemide 40 mg tablet 40 mg PO BEDTIME 11/24/23 06/02/24 12/21/23 History fluticasone 250 mcg-salmeterol 50 1 ea inhalation BID 12/22/23 06/02/24 12/21/23 History mcg/dose blistr powdr for inhalation (Advair Diskus) albuterol sulfate 90 mcg/actuation 2 puff inhalation Q4H PRN 04/26/24 06/02/24 Unknown History aerosol inhaler bronchospasm insulin lispro 100 unit/mL 10 - 14 unit subcut TID 04/26/24 06/02/24 Unknown History subcutaneous solution amlodipine 5 mg tablet 10 mg PO DAILY 06/02/24 06/02/24 Unknown History diclofenac sodium 1 % topical gel 1 g topical QID PRN Pain 06/02/24 06/02/24 Unknown History fluconazole 100 mg tablet 200 mg PO DAILY 06/02/24 06/02/24 Unknown History fluticasone propionate 110 2 puff inhalation BID 06/02/24 06/02/24 Unknown History mcg/actuation HFA aerosol inhaler Physical Exam Vital Signs: Vital Signs: Last Vital Signs Temp 97.7 F 06/03/24 10:31 Pulse 77 06/03/24 10:31 Resp 18 06/03/24 10:31 BP 173/79 H 06/03/24 10:31 Pulse Ox 97 06/03/24 10:31 O2 Del Method Room Air 06/03/24 10:31 BMI result Body Mass Index 21.1 EXAM: GENERAL: The patient is dishevelled VITAL SIGNS:see workflow HEENT: Nonicteric sclerae, PERRLA, EOMI. Oropharynx clear. Moist mucous membranes. Conjunctivae appear well perfused. No thyroid mass. CHEST: Chest wall is nontender. HEART: Regular rate and rhythm without murmurs. LUNGS: Clear to auscultation bilaterally. ABDOMEN: Soft, positive bowel sounds, mildly tender epigastrium, no organomegaly.no flank tenderness SKIN: No rash, no excessive bruising, petechiae, or purpura. NEUROLOGIC: Cranial nerves II-XII intact without motor/sensory deficit. Psych: normal affect Results Labs 06/03/24 06:12 06/03/24 06:12 Labs: Short CBC 06/02/24 06/03/24 Range/Units 13:42 06:12 WBC 13.7 H 9.8 (4.8-10.8) X10*3/uL Hgb 11.9 L 12.2 L (14.0-18.0) g/dl Hct 35.4 L 37.5 L (42.0-52.0) % Plt Count 343 D 353 (160-400) X10*3/uL BMP 06/02/24 06/03/24 13:42 06:12 Sodium 137 139 Potassium 3.9 3.3 Chloride 105 108 Carbon Dioxide 17 L 18 L BUN 25 H 17 H Creatinine 1.63 H 1.11 Calcium 8.5 8.5 Liver Function 06/02/24 Range/Units 13:42 Total Bilirubin 0.4 (0.0-1.0) mg/dL Direct Bilirubin 0.1 (0.0-0.5) mg/dL AST 25 (5-37) U/L ALT 19 (0-40) U/L Alkaline Phosphatase 97 (39-117) U/L Albumin 3.7 (3.5-5.0) g/dL Urine 06/02/24 Range/Units 15:03 Urine Color Yellow Urine Appearance Clear Urine pH 5.5 (5.0-9.0) Ur Specific [place] 1.015 (1.005-1.025) Urine Protein 300 (3+) H (Neg-Trace) mg/dL Urine Glucose (UA) 100 H (Negative) mg/dL Imaging CT scan - abdomen: Attestation: I personally reviewed and interpreted this imaging study as follows: (pancreas calcifications, thickened stomach, and esophagus) Assessment and Plan (1) Chest pain: Status: Acute Plan 1/ Non cardiac chest pain with neg trop, and ECG, prior hx of esophgeal candidaiasis and gastritis, likely a recurrence given ongoing alcohol use, however pain seems fairly significant as compared to last time, denies taking illicit drugs or nsaids PLAN: /1 - Ct chest to r/o dissection, if neg then magic mouthwash, and recommence fluconazole 100 mg daily with pantoprazole 40 mg BID 2/ alcohol abstinence 3/ if HGB tracks down or not better then will consider EGD Procedures Date of Service Date of Service: 06/03/24
[2024-06-03] MEDS: Acetaminophen 325 MG TABLET 650 MG PO (15:34)
[2024-06-03] MEDS: Mag&Al/Sim/Diphenhyd/Lidocaine 10 ML ORAL.SUSP PO (15:34)
[2024-06-03 16:28] LABS: Glucose, Whole Blood 226 mg/dL (60-115)
[2024-06-03] MEDS: Fluconazole in NaCl,Iso-Osm 200 MG/100 ML PIGGYBACK 100 MG IV (18:43)
[2024-06-03 19:59] LABS: Glucose, Whole Blood 203 mg/dL (60-115)
[2024-06-03 23:03] LABS: Glucose, Whole Blood 167 mg/dL (60-115)
[2024-06-04] VITALS (8 sets, daily range): BP systolic 140–180; BP diastolic 74–88; PULSE 69–83; RESP 18–20; TEMP 36.6–36.9; O2SAT 92–99
[2024-06-04] MEDS: ondansetron HCL 4 MG/2 ML VIAL IVPUSH ×2 (03:30→11:08)
[2024-06-04] MEDS: Morphine Sulfate 2 MG/ML CARTRIDGE IVPUSH ×3 (03:30→18:00)
[2024-06-04] MEDS: Mag&Al/Sim/Diphenhyd/Lidocaine 10 ML ORAL.SUSP PO (03:40)
[2024-06-04] MEDS: Pantoprazole Sodium 40 MG/10 ML VIAL IVPUSH ×2 (06:44→16:25)
[2024-06-04 07:41] LABS: Glucose, Whole Blood 269 mg/dL (60-115)
[2024-06-04] MEDS: Nicotine 14 MG PATCH.TD24 TRANSDERMA (07:48)
[2024-06-04] MEDS: Acetaminophen 325 MG TABLET 650 MG PO ×2 (07:49→16:26)
[2024-06-04] MEDS: amLODIPine Besylate 10 MG TABLET PO (07:49)
[2024-06-04] MEDS: Insulin Lispro 100 UNIT/ML 3 ML VIAL SUBCUT ×2 (07:49→16:25)
[2024-06-04] MEDS: Metoprolol Succinate ER 100 MG TAB.ER.24H PO (07:49)
[2024-06-04] MEDS: Dextrose 5 % and 0.9 % NaCl 1,000 ML 100 ML IVCONT (07:50)
[2024-06-04] MEDS: 0.9 % Sodium Chloride Flush 3 ML SYRINGE IVFLUSH ×2 (07:50→16:25)
[2024-06-04 10:57] LABS: Glucose, Whole Blood 117 mg/dL (60-115)
[2024-06-04] MEDS: Heparin Sodium,Porcine 5,000 UNIT/ML VIAL 5000 UNIT SUBCUT ×2 (11:08→16:25)
--- NOTE | 2024-06-04 14:25 | MHC.RECOVRN ---
Attempted to meet with pt to follow up regarding AUDIT C and resources left with pt yesterday. Pt laying in bed, lights off, wakes to voice. Pt declines meeting at this time, requesting time to rest. Pt encouraged to review resources and reach out to t/w with questions or concerns.
[2024-06-04 15:51] LABS: Glucose, Whole Blood 240 mg/dL (60-115)
[2024-06-04] MEDS: Fluconazole in NaCl,Iso-Osm 200 MG/100 ML PIGGYBACK 100 MG IV (16:24)
--- NOTE | 2024-06-04 17:15 | P.PNIM_ITS ---
Subjective Subjective Date of Service: 06/04/24 Interval History: f/u on chest pain, concern for esophagitis still c/o of upper abdominl pain, nausea, and not eating or drinking much Physical Exam 2 Vital Signs: Vital Signs: Last Vital Signs Temp 98.1 F 06/04/24 16:00 Pulse 79 06/04/24 16:00 Resp 20 06/04/24 16:00 BP 177/86 H 06/04/24 16:00 Pulse Ox 94 06/04/24 16:00 O2 Del Method Room Air 06/04/24 16:00 BMI result Body Mass Index 21.1 Const: Other: General: AO X 3, no acute distress Resp: CTA bilateral CVS: S1,S2,RRR GI: +BS, NT, no distention Skin: No rash Neuro: motor grossly intact Psych: appropriate affect Objective Data Active Medications Acetaminophen (Acetaminophen 325 Mg Tablet) 650 mg PO Q6H PRN PRN Reason: Pain, Mild (Pain Scale 1-3), fever or headache Last Admin: 06/04/24 16:26 Dose: 650 mg Documented By: LEIGHTON Albuterol Sulfate (Albuterol Sulfate 90 Mcg 8 Gm Inhaler) 2 puff INHALE Q4H PRN PRN Reason: bronchospasm Amlodipine Besylate (Amlodipine Besylate 10 Mg Tablet) 10 mg PO DAILY [facility]; Protocol Last Admin: 06/04/24 07:49 Dose: 10 mg Documented By: LEIGHTON Atorvastatin Calcium (Atorvastatin Calcium 40 Mg Tablet) 40 mg PO DAILY [facility] Calcium Carbonate (Calcium Carbonate 750 Mg Tab.Chew) 750 mg PO Q4H PRN PRN Reason: Heartburn Last Admin: 06/03/24 08:14 Dose: 750 mg Documented By: LEIGHTON Fluticasone Propionate (Fluticasone Propionate Nasal 16 Gm [place]) 2 spray NOSTRIL-B BID [facility] Fluticasone/Vilanterol (Fluticasone/Vilanterol 100/25 Blst.W.Dev) 1 puff INHALE RDAILY [facility] Furosemide (Furosemide 40 Mg Tablet) 40 mg PO BEDTIME [facility]; Protocol Furosemide (Furosemide 40 Mg Tablet) 80 mg PO DAILY [facility]; Protocol Gabapentin (Gabapentin 300 Mg Capsule) 300 mg PO TID [facility] Heparin Sodium (Porcine) (Heparin Sodium,Porcine 5,000 Unit/Ml Vial) 5,000 unit SUBCUT Q8H [facility] Last Admin: 06/04/24 16:25 Dose: 5,000 unit Documented By: LEIGHTON Fluconazole (Diflucan) 200 mg in 100 mls @ 100 mls/hr IV Q24H [facility] Last Admin: 06/04/24 16:24 Dose: 100 mls/hr Documented By: LEIGHTON Lactated Ringer's (Lr) 1,000 mls @ 125 mls/hr IVCONT .Q8H [facility] Insulin Human Lispro (Insulin Lispro 100 Unit/Ml 3 Ml Vial) 0 unit SUBCUT QIDACHS [facility]; Protocol Last Admin: 06/04/24 16:25 Dose: 6 unit Documented By: LEIGHTON Lidocaine/Diphenhydr/Alum/Mg/Simeth (Mag&Al/Sim/Diphenhyd/Lidocaine 10 Ml Oral.Susp) 10 ml PO Q6H PRN; Protocol PRN Reason: Sore Throat Last Admin: 06/04/24 03:40 Dose: 10 ml Documented By: BERENICE Magnesium Hydroxide (Milk Of Magnesia 30 Ml Oral.Susp) 30 ml PO DAILY PRN PRN Reason: Constipation Magnesium Oxide (Magnesium Oxide 400 Mg Tablet) [facility] Melatonin (Melatonin 3 Mg Tablet) 6 mg PO BEDTIME PRN PRN Reason: Insomnia Metoprolol Succinate (Metoprolol Succinate Er 100 Mg Tab.Er.24h) 100 mg PO DAILY [facility]; Protocol Last Admin: 06/04/24 07:49 Dose: 100 mg Documented By: LEIGHTON Metoprolol Tartrate (Metoprolol Tartrate 50 Mg Tablet) 50 mg PO ONCE ONE; Protocol Stop: 06/04/24 17:11 Morphine Sulfate (Morphine Sulfate 2 Mg/Ml Cartridge) 2 mg IVPUSH Q6H PRN; Protocol PRN Reason: Pain, Severe (Pain Scale 7-10) Last Admin: 06/04/24 11:08 Dose: 2 mg Documented By: LEIGHTON Nicotine (Nicotine 14 Mg Patch.Td24) 14 mg TRANSDERMA DAILY [facility] Last Admin: 06/04/24 07:48 Dose: 14 mg Documented By: LEIGHTON Ondansetron HCl (Ondansetron Hcl 4 Mg/2 Ml Vial) 4 mg IVPUSH Q8H PRN PRN Reason: Nausea and Vomiting Last Admin: 06/04/24 11:08 Dose: 4 mg Documented By: LEIGHTON Pantoprazole Sodium (Pantoprazole Sodium 40 Mg/10 Ml Vial) 40 mg IVPUSH BID@0630,1630 [facility] Last Admin: 06/04/24 16:25 Dose: 40 mg Documented By: LEIGHTON Sodium Chloride (0.9 % Sodium Chloride Flush 3 Ml Syringe) 3 ml IVFLUSH QSHIFT [facility] Last Admin: 06/04/24 16:25 Dose: 3 ml Documented By: LEIGHTON Sucralfate (Sucralfate 1 Gm Tablet) 1 gm PO QIDACHS [facility] Trazodone HCl (Trazodone Hcl 100 Mg Tablet) 100 mg PO BEDTIME [facility] Labs 06/04/24 17:21 06/05/24 05:42 Labs: Laboratory Results - last 24 hr 06/03/24 06/03/24 06/04/24 19:47 22:59 07:37 POC Glucose 203 H 167 H 269 H 06/04/24 06/04/24 10:50 15:41 POC Glucose 117 H 240 H Assessment and Plan (1) Chest pain: Status: Acute (2) Esophagitis: Status: Acute Plan 48-year-old male with a past medical history of chronic alcohol abuse and dependence who presents with a several day history chest pain. His presentation is concerning for esophagitis. 1. Chest pain with intractable nausea suspect d/t esophagitis -GI recommends conservative management. -continue IV PPI, Karafate -continue continue diflucant -advance diet as janice 2. KELVIN--likely pre renal d/t dehydration. Resolved with IVF 3. Alcohol abuse with dependence, last drank 1 week ago. No sings or symptoms of withdrawal -CIWA 4. COPD, no exacerbation. Baseline inhalers. 5. Diabetes, insulin dependent. On SSI while on minimal PO, add lantus 10 units 6. Metabolic acidosis, non anion gap, chronic, hypercholemic metabolic acidosis. IVF with LR, and repeat in the morning and Nephro if not improving. 6. Hypertension --resume home meds including metoprolol, Hydralazine, Norvasc. Hodl Lasix given limited oral intake and being IvF 7. Depression--Lexapro, Tranzadone Full Code DVT pptx mechanical due to concern of possible GI bleed Quality Stroke Does the patient have a stroke diagnosis?: No VTE Prior VTE?: No VTE Risk Level:: Medical - moderate - high VTE Device Contraindication: N/A - Device Ordered VTE Drug Contraindication: Treatment Not Indicated
[2024-06-04 17:45] LABS: Hematocrit 35.8 % (42.0-52.0); Hemoglobin 11.9 g/dl (14.0-18.0); Mean Corpuscular HGB Conc 33.2 g/dl (31.0-36.0); Mean Corpuscular Hemoglobin 24.6 pg (27.0-33.0); Mean Corpuscular Volume 74.1 fL (80.0-98.0); Mean Platelet Volume 9.5 fL (9.4-12.4); Platelet Count 314 X10*3/uL (160-400); Red Blood Count 4.83 X10*6/uL (4.60-5.80); Red Cell Distribution Width 19.7 % (11.0-16.0); White Blood Count 10.1 X10*3/uL (4.8-10.8)
[2024-06-04 17:58] LABS: Anion Gap 13 (12-20); Blood Urea Nitrogen 10 mg/dL (9-16); Calcium 8.4 mg/dL (8.4-10.2); Carbon Dioxide 17 mmol/L (22-29); Chloride 111 mmol/L (96-108); Estimated Glomerular Filt Rate > 60; Glucose Random 198 mg/dL (60-115); Potassium 3.2 mmol/L (3.3-5.1); Sodium 138 mmol/L (135-145)
[2024-06-04] MEDS: Magnesium Oxide 400 MG TABLET PO (18:00)
[2024-06-04] MEDS: Metoprolol Tartrate 50 MG TABLET PO (18:00)
[2024-06-04] MEDS: Lactated Ringers 1,000 ML 125 ML IVCONT (18:01)
[2024-06-04 19:45] LABS: Magnesium 1.7 mg/dL (1.6-2.6)
[2024-06-04] MEDS: Potassium Chloride ER 20 MEQ TAB.ER.PRT 40 MEQ PO (19:58)
[2024-06-04 20:11] LABS: Glucose, Whole Blood 71 mg/dL (60-115)
[2024-06-04] MEDS: Fluticasone Propionate Nasal 16 GM SPRAY 2 SPRAY NOSTRIL-B (20:11)
[2024-06-04] MEDS: hydrALAZINE HCl 50 MG TABLET 100 MG PO (20:11)
[2024-06-04] MEDS: Gabapentin 300 MG CAPSULE PO (20:11)
[2024-06-04] MEDS: Sucralfate 1 GM TABLET PO (20:11)
[2024-06-04] MEDS: traZODone HCL 100 MG TABLET PO (20:11)
[2024-06-04 21:54] LABS: Glucose, Whole Blood 174 mg/dL (60-115)
[2024-06-05] VITALS (10 sets, daily range): BP systolic 148–176; BP diastolic 63–88; PULSE 65–79; RESP 12–20; TEMP 36.4–36.6; O2SAT 90–100
[2024-06-05] MEDS: Heparin Sodium,Porcine 5,000 UNIT/ML VIAL 5000 UNIT SUBCUT ×3 (01:15→16:45)
[2024-06-05] MEDS: Lactated Ringers 1,000 ML 125 ML IVCONT ×3 (01:16→16:52)
[2024-06-05] MEDS: ondansetron HCL 4 MG/2 ML VIAL IVPUSH ×2 (01:18→09:32)
[2024-06-05] MEDS: Acetaminophen 325 MG TABLET 650 MG PO (01:19)
[2024-06-05] MEDS: Morphine Sulfate 2 MG/ML CARTRIDGE IVPUSH (05:52)
[2024-06-05] MEDS: Pantoprazole Sodium 40 MG/10 ML VIAL IVPUSH ×2 (05:52→15:24)
[2024-06-05 06:36] LABS: Anion Gap 14 (12-20); Blood Urea Nitrogen 9 mg/dL (9-16); Calcium 8.2 mg/dL (8.4-10.2); Carbon Dioxide 18 mmol/L (22-29); Chloride 113 mmol/L (96-108); Creatinine Clr Calc Pharmacy 73.2; Estimated Glomerular Filt Rate > 60; Glucose Random 166 mg/dL (60-115); Potassium 3.9 mmol/L (3.3-5.1); Sodium 141 mmol/L (135-145)
[2024-06-05 07:24] LABS: Beta-Hydroxybutyrate 1.31 mmol/L (0.02-0.27)
[2024-06-05] MEDS: Fluticasone/Vilanterol 100/25 BLST.W.DEV 1 PUFF INHALE (07:44)
[2024-06-05 07:47] LABS: Glucose, Whole Blood 159 mg/dL (60-115)
[2024-06-05] MEDS: Insulin Glargine,Hum.rec.anlog 100 UNIT/ML 10 ML VIAL 8 UNIT SUBCUT (07:57)
[2024-06-05] MEDS: Insulin Lispro 100 UNIT/ML 3 ML VIAL SUBCUT ×2 (07:57→21:00)
[2024-06-05] MEDS: Nicotine 14 MG PATCH.TD24 TRANSDERMA (07:58)
[2024-06-05] MEDS: Metoprolol Succinate ER 100 MG TAB.ER.24H PO (07:59)
[2024-06-05] MEDS: Atorvastatin Calcium 40 MG TABLET PO (07:59)
[2024-06-05] MEDS: Furosemide 40 MG TABLET 80 MG PO (07:59)
[2024-06-05] MEDS: amLODIPine Besylate 10 MG TABLET PO (07:59)
[2024-06-05] MEDS: Gabapentin 300 MG CAPSULE PO ×3 (07:59→21:00)
[2024-06-05] MEDS: hydrALAZINE HCl 50 MG TABLET 100 MG PO ×3 (07:59→21:00)
[2024-06-05] MEDS: Aspirin Enteric Coated 81 MG TABLET.DR PO (08:00)
[2024-06-05] MEDS: Escitalopram Oxalate 10 MG TABLET PO (08:00)
[2024-06-05] MEDS: Sucralfate 1 GM TABLET PO ×4 (08:00→21:00)
[2024-06-05] MEDS: Magnesium Oxide 400 MG TABLET PO ×2 (08:00→16:45)
[2024-06-05] MEDS: 0.9 % Sodium Chloride Flush 3 ML SYRINGE IVFLUSH ×3 (08:01→21:24)
[2024-06-05 08:41] LABS: ABG Base Excess -5.4 mmol/L; ABG HCO3 17 mmol/L (22-26); ABG pCO2 26 mmHg (32-45); ABG pH 7.42 (7.35-7.45); ABG pO2 61 mmHg (83-108)
--- NOTE | 2024-06-05 10:30 | MHC.CM.PN ---
Per ROUNDS discussion, Patient is not yet medically cleared for dc (Nausea/vomiting, not eating); home is the goal and CM will continue to follow.
[2024-06-05] MEDS: Sodium Bicarbonate 650 MG TABLET PO ×2 (10:44→21:00)
[2024-06-05] MEDS: Fluticasone Propionate Nasal 16 GM SPRAY 2 SPRAY NOSTRIL-B (10:45)
[2024-06-05 11:57] LABS: Glucose, Whole Blood 137 mg/dL (60-115)
--- NOTE | 2024-06-05 12:52 | P.CONNP_ITS ---
History of Present Illness Reason for Consult Consult date: 06/05/24 Reason for consult: Metabolic Acidosis Chief Complaint Chief complaint: chest pain, vomiting History of Present Illness Narrative: 48-year-old alcoholic who presented to the emergency room with history of nausea and dry heaving followed by substernal chest pain. The patient states this is similar to his prior presentation where he was treated for esophagitis. He stated his last alcohol drink was more than a week ago. He denies hematemesis or coffee-grounds. He does report intermittent diarrhea for the last several days. He also reports inability to eat due to persistent nausea. In the emergency room patient's workup revealed acute kidney injury with serum creatinine nearly twice his baseline & he was treated with IV Protonix and IV narcotics with improvement in his pain. He was admitted for intractable nausea and vomiting likely secondary to esophagitis/gastritis. He has been having hyperchloremic metabolic acidosis. Nephrology has been consulted to assist in his clinical care during his current hospital stay. Review of Systems Review of Systems Yes all other systems are reviewed and are negative PMFSH Past Medical History Medical History (Updated 06/05/24 @ 12:55 by Scotty Houser MD) KELVIN (acute kidney injury) Hypertension Chronic heart failure with preserved ejection fraction (HFpEF) Acute respiratory failure with hypoxia Congestive heart failure CKD (chronic kidney disease) stage 1, GFR 90 ml/min or greater Depression COPD exacerbation YARELIS (obstructive sleep apnea) CHF exacerbation Hypoxia Acute respiratory failure Uncontrolled hypertension Acute on chronic diastolic (congestive) heart failure Acute on chronic anemia Hyperglycemia due to type 2 diabetes mellitus YARELIS (obstructive sleep apnea) Congestive heart failure Anxiety HLD (hyperlipidemia) Diabetes Hypercholesteremia HTN (hypertension) Asthma PAD (peripheral artery disease) Family History Family History Father Alzheimer disease CAD (coronary artery disease) Surgical History Surgical History History of esophagogastroduodenoscopy S/P angiogram of extremity Social History Social History Household Members: Family Household Members Other:: girlfriend Housing: Apartment Do you presently have visiting nurse or other home services: No Unable to assess alcohol history related to: Unknown Alcohol intake: never Comment: low fall risk Patient Tobacco Use Status: Current everyday Tobacco user Tobacco use type: Cigarette Cigarettes Per Day: 5 Years Smoked: >30 Smoked in Last 30 Days: Yes e-Cigarette/Vaping Use: Never Used Patient Given Instructions on How to Stop Smoking: No Second Hand Smoke Exposure: Yes Use of substances other than those prescribed or required for medical reasons: Yes Substance Use Type: Marijuana Substance Use Frequency: Monthly Currently Displaying Signs/Symptoms of Drug Intoxication Withdrawal: No Have you been hit, kicked, punched, or otherwise hurt by someone within the past year? If so, by whom?: No Do you feel safe in your current relationship?: Yes Is there a partner from a previous relationship who is making you feel unsafe now?: No Are you made to feel afraid or neglected: No Advance Directives: Yes Advance Directives on File: Yes Advance Directives Date on File: 06/21/21 Do you have a plan to hurt others: No Plan Recently lost weight without trying: No Eating poorly because of decreased appetite: No Nutrition Risks: No Nutritional Risk Poor oral hygiene: No service: No Current occupational status: disabled Meds Allergies Allergy/AdvReac Type Severity Reaction Status Date / Time [facility] Allergy Unknown Verified 06/02/24 12:59 metformin [METFORMIN] AdvReac Mild DIARRHEA, Verified 06/02/24 12:59 nausea and vomiting Active Medications: Current Medications Acetaminophen (Acetaminophen 325 Mg Tablet) 650 mg PO Q6H PRN PRN Reason: Pain, Mild (Pain Scale 1-3), fever or headache Last Admin: 06/05/24 01:19 Dose: 650 mg Albuterol Sulfate (Albuterol Sulfate 90 Mcg 8 Gm Inhaler) 2 puff INHALE Q4H PRN PRN Reason: bronchospasm Albuterol/Ipratropium (Albuterol/Iprat 2.5/0.5mg 3 Ml Ampul.Neb) 3 ml INHALE RQ4H WHILE AWAKE [facility] Last Admin: 06/05/24 11:18 Dose: Not Given Amlodipine Besylate (Amlodipine Besylate 10 Mg Tablet) 10 mg PO DAILY [facility]; Protocol Last Admin: 06/05/24 07:59 Dose: 10 mg Aspirin (Aspirin Enteric Coated 81 Mg Tablet.) 81 mg PO DAILY [facility] Last Admin: 06/05/24 08:00 Dose: 81 mg Atorvastatin Calcium (Atorvastatin Calcium 40 Mg Tablet) 40 mg PO DAILY [facility] Last Admin: 06/05/24 07:59 Dose: 40 mg Calcium Carbonate (Calcium Carbonate 750 Mg Tab.Chew) 750 mg PO Q4H PRN PRN Reason: Heartburn Last Admin: 06/03/24 08:14 Dose: 750 mg Escitalopram Oxalate (Escitalopram Oxalate 10 Mg Tablet) 10 mg PO DAILY [facility] Last Admin: 06/05/24 08:00 Dose: 10 mg Fluticasone Propionate (Fluticasone Propionate Nasal 16 Gm [place]) 2 spray NOSTRIL-B BID [facility] Last Admin: 06/05/24 10:45 Dose: 2 spray Fluticasone/Vilanterol (Fluticasone/Vilanterol 100/25 Blst.W.Dev) 1 puff INHALE RDAILY [facility] Last Admin: 06/05/24 07:44 Dose: 1 puff Furosemide (Furosemide 40 Mg Tablet) 80 mg PO DAILY [facility]; Protocol Last Admin: 06/05/24 07:59 Dose: 80 mg Gabapentin (Gabapentin 300 Mg Capsule) 300 mg PO TID [facility] Last Admin: 06/05/24 07:59 Dose: 300 mg Heparin Sodium (Porcine) (Heparin Sodium,Porcine 5,000 Unit/Ml Vial) 5,000 unit SUBCUT Q8H [facility] Last Admin: 06/05/24 07:57 Dose: 5,000 unit Hydralazine HCl (Hydralazine Hcl 50 Mg Tablet) 100 mg PO TID [facility]; Protocol Last Admin: 06/05/24 07:59 Dose: 100 mg Fluconazole (Diflucan) 200 mg in 100 mls @ 100 mls/hr IV Q24H [facility] Last Infusion: 06/04/24 17:25 Dose: Infused Lactated Ringer's (Lr) 1,000 mls @ 125 mls/hr IVCONT .Q8H [facility] Last Admin: 06/05/24 09:32 Dose: 125 mls/hr Insulin Glargine (Insulin Glargine,Hum.Rec.Anlog 100 Unit/Ml 10 Ml Vial) 10 unit SUBCUT BEDTIME [facility] Last Admin: 06/04/24 20:14 Dose: Not Given Insulin Human Lispro (Insulin Lispro 100 Unit/Ml 3 Ml Vial) 0 unit SUBCUT QIDACHS [facility]; Protocol Last Admin: 06/05/24 12:01 Dose: Not Given Lidocaine/Diphenhydr/Alum/Mg/Simeth (Mag&Al/Sim/Diphenhyd/Lidocaine 10 Ml Oral.Susp) 10 ml PO Q6H PRN; Protocol PRN Reason: Sore Throat Last Admin: 06/04/24 03:40 Dose: 10 ml Magnesium Hydroxide (Milk Of Magnesia 30 Ml Oral.Susp) 30 ml PO DAILY PRN PRN Reason: Constipation Magnesium Oxide (Magnesium Oxide 400 Mg Tablet) 400 mg PO BIDPC [facility] Last Admin: 06/05/24 08:00 Dose: 400 mg Melatonin (Melatonin 3 Mg Tablet) 6 mg PO BEDTIME PRN PRN Reason: Insomnia Metoprolol Succinate (Metoprolol Succinate Er 100 Mg Tab.Er.24h) 100 mg PO DAILY [facility]; Protocol Last Admin: 06/05/24 07:59 Dose: 100 mg Morphine Sulfate (Morphine Sulfate 2 Mg/Ml Cartridge) 2 mg IVPUSH Q6H PRN; Protocol PRN Reason: Pain, Severe (Pain Scale 7-10) Last Admin: 06/05/24 05:52 Dose: 2 mg Nicotine (Nicotine 14 Mg Patch.Td24) 14 mg TRANSDERMA DAILY [facility] Last Admin: 06/05/24 07:58 Dose: 14 mg Ondansetron HCl (Ondansetron Hcl 4 Mg/2 Ml Vial) 4 mg IVPUSH Q8H PRN PRN Reason: Nausea and Vomiting Last Admin: 06/05/24 09:32 Dose: 4 mg Pantoprazole Sodium (Pantoprazole Sodium 40 Mg/10 Ml Vial) 40 mg IVPUSH BID@0630,1630 [facility] Last Admin: 06/05/24 05:52 Dose: 40 mg Sodium Bicarbonate (Sodium Bicarbonate 650 Mg Tablet) 650 mg PO BID [facility] Last Admin: 06/05/24 10:44 Dose: 650 mg Sodium Chloride (0.9 % Sodium Chloride Flush 3 Ml Syringe) 3 ml IVFLUSH QSHIFT [facility] Last Admin: 06/05/24 08:01 Dose: 3 ml Sucralfate (Sucralfate 1 Gm Tablet) 1 gm PO QIDACHS [facility] Last Admin: 06/05/24 12:22 Dose: 1 gm Trazodone HCl (Trazodone Hcl 100 Mg Tablet) 100 mg PO BEDTIME [facility] Last Admin: 06/04/24 20:11 Dose: 100 mg Home Medications ?Medication ?Instructions ?Recorded ?Confirmed ?Last Taken ?Type escitalopram oxalate 10 mg tablet 10 mg PO DAILY 08/01/22 06/02/24 12/21/23 History trazodone 50 mg tablet 100 mg PO BEDTIME 08/01/22 06/02/24 12/21/23 History aspirin 81 mg tablet,delayed 81 mg PO DAILY 10/06/22 06/02/24 12/21/23 History release atorvastatin 40 mg tablet 40 mg PO DAILY 10/06/22 06/02/24 12/21/23 History gabapentin 300 mg capsule 300 mg PO TID 10/06/22 06/02/24 12/21/23 History metoprolol succinate 100 mg 100 mg PO DAILY 10/06/22 06/02/24 12/21/23 History tablet,extended release 24 hr omeprazole 40 mg capsule,delayed 40 mg PO DAILY@0630 10/06/22 06/02/24 12/21/23 History release furosemide 40 mg tablet 80 mg PO DAILY 06/26/23 06/02/24 12/21/23 History insulin glargine 100 unit/mL (3 27 unit subcut BEDTIME PRN 06/26/23 06/02/24 12/21/23 History mL) subcutaneous pen (Lantus Hyperglycemia Solostar U-100 Insulin) furosemide 40 mg tablet 40 mg PO BEDTIME 11/24/23 06/02/24 12/21/23 History fluticasone 250 mcg-salmeterol 50 1 ea inhalation BID 12/22/23 06/02/24 12/21/23 History mcg/dose blistr powdr for inhalation (Advair Diskus) albuterol sulfate 90 mcg/actuation 2 puff inhalation Q4H PRN 04/26/24 06/02/24 Unknown History aerosol inhaler bronchospasm insulin lispro 100 unit/mL 10 - 14 unit subcut TID 04/26/24 06/02/24 Unknown History subcutaneous solution amlodipine 5 mg tablet 10 mg PO DAILY 06/02/24 06/02/24 Unknown History diclofenac sodium 1 % topical gel 1 g topical QID PRN Pain 06/02/24 06/02/24 Unknown History fluconazole 100 mg tablet 200 mg PO DAILY 06/02/24 06/02/24 Unknown History fluticasone propionate 110 2 puff inhalation BID 06/02/24 06/02/24 Unknown History mcg/actuation HFA aerosol inhaler Physical Exam Vital Signs: Last Vital Signs Temp 97.5 F 06/05/24 11:33 Pulse 75 06/05/24 11:33 Resp 20 06/05/24 11:33 BP 148/88 H 06/05/24 11:33 Pulse Ox 94 06/05/24 11:33 O2 Del Method Room Air 06/05/24 11:33 BMI result Body Mass Index 21.1 Const General: no acute distress Eyes EOM: EOMs intact bilaterally Neck Neck: Yes supple Resp Auscultation: diminished lung sounds Cardio Rate: regular rate GI Palpation (GI): Soft to palpation Neuro General: moves all extremities Results Lab Results 06/04/24 17:21 06/05/24 05:42 Lab results: Chemistry 06/02/24 06/03/24 06/04/24 13:42 06:12 17:21 Sodium 137 139 138 Potassium 3.9 3.3 3.2 L Carbon Dioxide 17 L 18 L 17 L BUN 25 H 17 H 10 Creatinine 1.63 H 1.11 0.98 Calcium 8.5 8.5 8.4 06/05/24 05:42 Sodium 141 Potassium 3.9 D Carbon Dioxide 18 L BUN 9 Creatinine 0.99 Calcium 8.2 L Hematology 06/02/24 06/03/24 06/04/24 13:42 06:12 17:21 WBC 13.7 H 9.8 10.1 Hgb 11.9 L 12.2 L 11.9 L Plt Count 343 D 353 314 Urinalysis 06/02/24 15:03 Urine Color Yellow Urine Appearance Clear Urine pH 5.5 Ur Specific Bruce 1.015 Urine Protein 300 (3+) H Urine Glucose (UA) 100 H Urine Ketones 15 Urine Blood Negative Urine Nitrite Negative Ur Leukocyte Esterase Negative Urine RBC 0-2 Urine WBC 0-5 Ur Squamous Epith Cells 0-2 Hyaline Casts 3-5 Assessment and Plan (1) Metabolic acidosis: Status: Acute (2) KELVIN (acute kidney injury): Status: Acute Plan KELVIN due to compromise in renal perfusion No reason to suspect GN/AIN/Obstruction Serum creatinine improving with supportive care Has hyperchloremic metabolic acidosis Could get LR and NaHCO3; Keep K over 4 C/W rest of current management for now Procedures Date of Service Date of Service: 06/05/24
[2024-06-05 14:29] LABS: ABG Refer to POC result
[2024-06-05] MEDS: Albuterol/Iprat 2.5/0.5MG 3 ML AMPUL.NEB INHALE ×2 (14:42→19:27)
[2024-06-05 15:39] LABS: Anion Gap 12 (12-20); Carbon Dioxide 20 mmol/L (22-29); Chloride 111 mmol/L (96-108); Potassium 3.6 mmol/L (3.3-5.1); Sodium 139 mmol/L (135-145)
[2024-06-05 15:46] LABS: Glucose, Whole Blood 138 mg/dL (60-115)
[2024-06-05] MEDS: Fluconazole in NaCl,Iso-Osm 200 MG/100 ML PIGGYBACK 100 MG IV (16:47)
[2024-06-05 20:52] LABS: Glucose, Whole Blood 240 mg/dL (60-115)
[2024-06-05] MEDS: traZODone HCL 100 MG TABLET PO (21:00)
[2024-06-05] MEDS: Insulin Glargine,Hum.rec.anlog 100 UNIT/ML 10 ML VIAL 6 UNIT SUBCUT (21:00)
[2024-06-06] VITALS: BP 168/80; PULSE 76; RESP 19; TEMP 36.7; O2SAT 94
[2024-06-06] MEDS: Heparin Sodium,Porcine 5,000 UNIT/ML VIAL 5000 UNIT SUBCUT ×2 (01:49→08:26)
[2024-06-06 04:00] VITALS: BP 164/76; PULSE 67; RESP 18; TEMP 36.4; O2SAT 93
[2024-06-06 06:35] LABS: Anion Gap 13 (12-20); Blood Urea Nitrogen 9 mg/dL (9-16); Calcium 8.9 mg/dL (8.4-10.2); Carbon Dioxide 21 mmol/L (22-29); Chloride 109 mmol/L (96-108); Creatinine Clr Calc Pharmacy 58.9; Estimated Glomerular Filt Rate > 60; Glucose Random 178 mg/dL (60-115); Potassium 3.5 mmol/L (3.3-5.1); Sodium 139 mmol/L (135-145)
[2024-06-06 07:29] VITALS: BP 158/86; PULSE 67; RESP 20; TEMP 37.1; O2SAT 94
[2024-06-06] MEDS: Albuterol/Iprat 2.5/0.5MG 3 ML AMPUL.NEB INHALE (07:32)
[2024-06-06] MEDS: Fluticasone/Vilanterol 100/25 BLST.W.DEV 1 PUFF INHALE (07:32)
[2024-06-06 07:34] VITALS: PULSE 100; RESP 18; O2SAT 92
[2024-06-06 07:57] LABS: Glucose, Whole Blood 168 mg/dL (60-115)
[2024-06-06] MEDS: Magnesium Oxide 400 MG TABLET PO (08:26)
[2024-06-06] MEDS: Furosemide 40 MG TABLET 80 MG PO (08:26)
[2024-06-06] MEDS: Escitalopram Oxalate 10 MG TABLET PO (08:26)
[2024-06-06] MEDS: Insulin Lispro 100 UNIT/ML 3 ML VIAL SUBCUT ×2 (08:26→11:29)
[2024-06-06] MEDS: Atorvastatin Calcium 40 MG TABLET PO (08:27)
[2024-06-06] MEDS: Nicotine 14 MG PATCH.TD24 TRANSDERMA (08:27)
[2024-06-06] MEDS: Sucralfate 1 GM TABLET PO ×2 (08:27→11:29)
[2024-06-06] MEDS: Aspirin Enteric Coated 81 MG TABLET.DR PO (08:27)
[2024-06-06] MEDS: hydrALAZINE HCl 50 MG TABLET 100 MG PO (08:27)
[2024-06-06] MEDS: amLODIPine Besylate 10 MG TABLET PO (08:27)
[2024-06-06] MEDS: Sodium Bicarbonate 650 MG TABLET PO (08:27)
[2024-06-06] MEDS: Gabapentin 300 MG CAPSULE PO (08:27)
[2024-06-06] MEDS: Metoprolol Succinate ER 100 MG TAB.ER.24H PO (08:27)
[2024-06-06] MEDS: 0.9 % Sodium Chloride Flush 3 ML SYRINGE IVFLUSH (08:28)
[2024-06-06] MEDS: Fluticasone Propionate Nasal 16 GM SPRAY 2 SPRAY NOSTRIL-B (08:32)
[2024-06-06 11:03] LABS: Glucose, Whole Blood 249 mg/dL (60-115)
[2024-06-06 11:09] VITALS: BP 146/82; PULSE 73; RESP 20; TEMP 36.7; O2SAT 97
--- NOTE | 2024-06-06 11:43 | P.DS_ITS ---
DS: Providers Provider Date of Service: 06/06/24 Date of admission: 06/02/24 15:39 Date of discharge: 06/06/24 Primary care physician: Zari Henry MD Consults: 06/02/24 15:39 Consult to Gastroenterology Routine Consulting Provider: Rafael Camilo Reason for consultation: prior esophagitis,now with ongoing pain 06/02/24 23:43 Addiction Medicine Routine Consulting Provider: Addiction Covering Reason for consultation: alcohol intake up to a pint of vodka, per pt. 1=2x/week. In with n/v/d. Has provider been notified: Yes 06/05/24 08:53 Consult to Nephrology Routine Consulting Provider: [facility] [place] [facility] Reason for consultation: acute on chronic metabolic Has provider been notified: Yes Attending physician on discharge: Alberto John Discharging clinician: Veronica Sinclair DS: Diagnosis Discharge Diagnosis (1) Metabolic acidosis: Status: Acute (2) KELVIN (acute kidney injury): Status: Acute DS: Summary Hospital Course Hospital Course: From H&P on the day of admission The patient is a 48-year-old alcoholic who presents to the emergency room with a several day history of nausea and dry heaving followed by substernal chest pain. The patient states this is similar to his prior presentation where he was treated for esophagitis. He states his last alcohol drink was more than a week ago. He denies hematemesis or coffee- grounds. He does report intermittent diarrhea for the last several days. He also reports inability to eat due to persistent nausea. In the emergency room patient's workup revealed acute kidney injury with serum creatinine nearly twice his baseline. He was treated with IV Protonix and IV narcotics. He reports improvement in his pain. He will now be admitted for intractable nausea and vomiting likely secondary to esophagitis/gastritis. Chest pain with intractable nausea d/t esophagitis recent EGD showing esophageal candidiasis and gastritis. Seen by GI -recommend alcohol abstinence, fluconazole 100 mg daily and pantoprazole 40 mg b.i.d. His abdominal pain and nausea/vomiting improved. His diet was able to be a dvanced and is currently tolerating a regular diet. EKG with no ischemic changes, cardiac enzymes flat. Chest CT with no evidence of esophageal rupture. KELVIN--likely pre renal d/t dehydration. Resolved with IVF Metabolic acidosis, non anion gap, chronic, hypercholemic metabolic acidosis - seen by nephrology, rec IVF and oral sodium bicarbonate. Bicarbonate improved, no need for oral replacement upon discharge. recommend outpatient follow-up with Nephrology Alcohol abuse with dependence, last drank 1 week ago. No sings or symptoms of withdrawal Seen by addiction Medicine and resources provided Recommend alcohol cessation COPD, no exacerbation. Baseline inhalers. Diabetes, insulin dependent. On SSI while on minimal PO, add lantus 10 units Time Attestation Discharge Coordination Time (in mins): 36 Quality: Safe Use of Opioids Does Pt have an Active Cancer Diagnosis on the Problem List?: No Quality: Stroke Does the patient have a stroke diagnosis?: No Physical Exam Vital Signs: Vital Signs: Last Vital Signs Temp 98.1 F 06/06/24 11:09 Pulse 73 06/06/24 11:09 Resp 20 06/06/24 11:09 BP 146/82 H 06/06/24 11:09 Pulse Ox 97 06/06/24 11:09 O2 Del Method Room Air 06/06/24 11:09 BMI result Body Mass Index 21.1 Const: General: cooperative, comfortable, no acute distress, alert and awake Nutritional Appearance: average body habitus Orientation/consciousness: patient oriented x3 Resp: Effort & Inspection: normal respiratory effort, able to speak in complete sentences, no respiratory distress and no use of accessory muscles Cardio: Rate: regular rate GI: Inspection: No distended Palpation (GI): Soft to palpation Neuro: General: patient oriented x3, moves all extremities and CN's II-XI intact bilaterally DS: Data Data Completed and Pending Completed studies during hospitalization [Text1]: Procedures Assistance with Respiratory Ventilation, Less than 24 Consecutive Hours, Continuous Positive Airway Pressure (04/17/23) Detoxification Services for Substance Abuse Treatment (04/26/24) Excision of Esophagus, Via Natural or Artificial Opening Endoscopic, Diagnostic (04/26/24) Excision of Stomach, Pylorus, Via Natural or Artificial Opening Endoscopic, Diagnostic (04/26/24) Introduction of Remdesivir Anti-infective into Peripheral Vein, Percutaneous Approach, [employer] (12/22/23) Labs on day of discharge: Laboratory Results - last 24 hr 06/05/24 06/05/24 06/05/24 11:36 15:02 15:40 Hold Purple Top Sodium 139 Potassium 3.6 Chloride 111 H Carbon Dioxide 20 L Anion Gap 12 BUN Creatinine Estim Creat Clear Calc Estimated GFR POC Glucose 137 H 138 H Random Glucose Calcium 06/05/24 06/06/24 06/06/24 20:47 06:06 07:30 Hold Purple Top SEE NOTE Sodium 139 Potassium 3.5 Chloride 109 H Carbon Dioxide 21 L Anion Gap 13 BUN 9 Creatinine 1.23 Estim Creat Clear Calc 58.9 Estimated GFR > 60 POC Glucose 240 H 168 H Random Glucose 178 H Calcium 8.9 D 06/06/24 10:55 Hold Purple Top Sodium Potassium Chloride Carbon Dioxide Anion Gap BUN Creatinine Estim Creat Clear Calc Estimated GFR POC Glucose 249 H Random Glucose Calcium Discharge Plan Discharge Anticipated Discharge Date/Time: 06/06/24 11:58 Patient Disposition: Home, Self-Care Discharge Diagnosis: non cardiac chest pain esophagitis KELVIN Metabolic acidosis Referrals: Zari Henry MD [Primary Care Provider] - 1 Week Discharge Medications: New pantoprazole 40 mg tablet,delayed release (DR/EC) 40 mg PO BID 60 Days Qty: 120 0RF fluconazole 100 mg tablet 100 mg PO DAILY 11 Days Qty: 11 0RF Continued hydralazine 100 mg tablet 100 mg PO TID 30 Days Qty: 90 5RF sucralfate 1 gram Tablet 1 g PO QIDACHS Qty: 120 0RF trazodone 50 mg tablet 100 mg PO BEDTIME escitalopram oxalate 10 mg tablet 10 mg PO DAILY atorvastatin 40 mg tablet 40 mg PO DAILY gabapentin 300 mg capsule 300 mg PO TID Hold Instructions: Resume on 11/07/22. metoprolol succinate 100 mg tablet extended release 24 hr 100 mg PO DAILY magnesium oxide 400 mg (241.3 mg magnesium) Tablet 400 mg PO BIDPC Qty: 60 0RF fluticasone propion-salmeterol [Advair Diskus] 250-50 mcg/dose blister with device 1 ea inhalation BID amlodipine 5 mg tablet 10 mg PO DAILY fluticasone propionate 110 mcg/actuation HFA aerosol inhaler 2 puff INHALATION BID diclofenac sodium 1 % gel 1 g TOPICAL QID PRN (Reason: Pain) Rx Instructions: left chest wall insulin glargine [Lantus Solostar U-100 Insulin] 100 unit/mL (3 mL) insulin pen 27 unit subcut BEDTIME PRN (Reason: Hyperglycemia) Rx Instructions: pt uses as backup to insulin pump furosemide 40 mg tablet 80 mg PO DAILY Rx Instructions: IN THE MORNING furosemide 40 mg tablet 40 mg PO BEDTIME albuterol sulfate 90 mcg/actuation HFA aerosol inhaler 2 puff inhalation Q4H PRN (Reason: bronchospasm) insulin lispro 100 unit/mL solution 10 - 14 unit subcut TID Rx Instructions: USES IN INSULIN PUMP aspirin 81 mg tablet,delayed release (DR/EC) 81 mg PO DAILY Discontinued omeprazole 40 mg capsule,delayed release(DR/EC) 40 mg PO DAILY@0630 fluconazole 100 mg tablet 200 mg PO DAILY Rx Instructions: x14 days Discharge Orders: Discharge Order (Routine); Ordered 06/06/24 Ordered By: Veronica Sinclair Activity on Discharge: As tolerated Stand Alone Forms: Patient Portal Discharge page Print Language: Urdu Care Plan Goals: See below Health Concerns: Noncardiac chest pain Gastritis/esophageal candidiasis Plan of Treatment: take 11 more days of fluconazole Take pantoprazole twice daily Avoid NSAIDs like ibuprofen Do not drink alcohol Outpatient follow-up with GI and Nephrology - either at [facility] or [place], call to schedule a follow up appointment Assessment: See discharge summary
--- NOTE | 2024-06-06 12:23 | MHC.CM.PN ---
Patient has been medically cleared for dc to home today, self care.
== END 2024-06-06 13:59 | disposition home or self-care (01) | DRG 242 ==
LOC: HO.ED 13:36 → HO.EDOVER 16:06 → HO.IMC 19:38
PROVIDERS: Internal Medicine; Admitting Provider Family Medicine; Emergency Provider Emergency Medicine; PCP Internal Medicine; Visit Provider Physician Assistant Medical
DX: B37.81 Candidal esophagitis (principal); E87.22 Chronic metabolic acidosis; N17.9 Acute kidney failure, unspecified; E87.8 Other disorders of electrolyte and fluid balance, not elsewhere classified; F17.210 Nicotine dependence, cigarettes, uncomplicated; I11.0 Hypertensive heart disease with heart failure; I50.32 Chronic diastolic (congestive) heart failure; F32.A Depression, unspecified; Z99.81 Dependence on supplemental oxygen; E11.9 Type 2 diabetes mellitus without complications; J44.9 Chronic obstructive pulmonary disease, unspecified; E86.0 Dehydration; K44.9 Diaphragmatic hernia without obstruction or gangrene; F10.20 Alcohol dependence, uncomplicated; Z20.822 Contact with and (suspected) exposure to COVID-19; Z71.6 Tobacco abuse counseling; Z79.4 Long term (current) use of insulin; Z79.51 Long term (current) use of inhaled steroids; Z79.82 Long term (current) use of aspirin; Z79.899 Other long term (current) drug therapy
CPT/HCPCS: 0241U; 36415; 36600; 71045; 71250; 74176; 80048; 80051; 80076; 81001; 82010; 82803; 82947; 83690; 83735; 83880; 84484; 85025; 85027; 87389; 93005; 94640; 94664; 99285; J1170; J1450; J1644; J2270; J2405; J2470; J7120

== ENCOUNTER → 2024-06-02 12:44 | Outpatient (BNV) | payer OTHER, SELFPAY | PROVIDERS: Admitting Provider Family Medicine; Emergency Provider Emergency Medicine; PCP Internal Medicine; Visit Provider Internal Medicine Cardiovascular Disease | DX: R07.89 Other chest pain (principal) | CPT/HCPCS: 93010 ==

== ENCOUNTER → 2024-06-02 13:05 | Outpatient (BNV) | payer OTHER, SELFPAY | PROVIDERS: Emergency Provider Emergency Medicine; PCP Internal Medicine; Visit Provider Family Medicine | DX: R07.9 Chest pain, unspecified (principal); K20.90 Esophagitis, unspecified without bleeding | CPT/HCPCS: 99223; 99232; 99239 ==

== ENCOUNTER → 2024-06-02 15:39 | Outpatient (BNV) | payer OTHER, SELFPAY | PROVIDERS: Admitting Provider Family Medicine; Emergency Provider Emergency Medicine; PCP Internal Medicine; Visit Provider Internal Medicine Nephrology | DX: E87.21 Acute metabolic acidosis (principal); N17.9 Acute kidney failure, unspecified | CPT/HCPCS: 99223 ==

== ENCOUNTER → 2024-06-02 15:39 | Outpatient (BNV) | payer OTHER, SELFPAY | PROVIDERS: Admitting Provider Family Medicine; Emergency Provider Emergency Medicine; PCP Internal Medicine; Visit Provider Internal Medicine Gastroenterology | DX: R07.9 Chest pain, unspecified (principal) | CPT/HCPCS: 99223 ==

== ENCOUNTER 2024-06-07 23:10 | Inpatient (IN) | payer OTHER, SELFPAY ==
--- NOTE | 2024-06-07 | ECG_ITS ---
Test Reason : CHF Blood Pressure : / mmHG Vent. Rate : 077 BPM Atrial Rate : 077 BPM P-R Int : 144 ms QRS Dur : 082 ms QT Int : 396 ms P-R-T Axes : 032 046 026 degrees QTc Int : 448 ms Normal sinus rhythm Nonspecific T wave abnormality Abnormal ECG When compared with ECG of 02-JUN-2024 15:34, T wave inversion now evident in Lateral leads Referred By: Generic ED Physician Electronically Signed By:INOCENCIO BERGMAN MD
--- NOTE | ~2024-06-07 | XR_ITS ---
EXAMINATION: XR CHEST CLINICAL INFORMATION: Shortness of breath. History of CHF. COMPARISON: 06/02/2024 TECHNIQUE: Frontal view of the chest was obtained. FINDINGS: The cardiomediastinal silhouette is within normal limits. There is vascular congestion and perihilar increased markings. There is lingular atelectasis or scarring. There are no significant pleural effusions. The bony structures and soft tissues are unremarkable. XR/XR chest 1V IMPRESSION: Vascular congestion and perihilar increased markings possibly mild edema. There is lingular atelectasis or scarring.
[2024-06-07 23:20] VITALS: BP 157/73; PULSE 77; RESP 18; TEMP 37.2; O2SAT 97
[2024-06-07 23:28] VITALS: BP 157/73; BP 168/70; PULSE 77; PULSE 90; RESP 14; TEMP 37.2; O2SAT 95; O2SAT 99; BMI 25.9
[2024-06-08] VITALS (15 sets, daily range): BP systolic 144–193; BP diastolic 71–92; PULSE 67–88; RESP 12–22; TEMP 36.3–37.2; O2SAT 86–98; BMI 24.0
[2024-06-08 00:32] LABS: Hematocrit 29.4 % (42.0-52.0); Hemoglobin 9.9 g/dl (14.0-18.0); Mean Corpuscular HGB Conc 33.7 g/dl (31.0-36.0); Mean Corpuscular Hemoglobin 25.2 pg (27.0-33.0); Mean Corpuscular Volume 74.8 fL (80.0-98.0); Mean Platelet Volume 9.4 fL (9.4-12.4); Platelet Count 245 X10*3/uL (160-400); Red Blood Count 3.93 X10*6/uL (4.60-5.80); Red Cell Distribution Width 20.4 % (11.0-16.0); White Blood Count 10.1 X10*3/uL (4.8-10.8)
[2024-06-08 00:38] LABS: INTERNATIONAL NORM RATIO 0.8 (0.9-1.1); Prothrombin Time 10.1 SEC (11.1-13.3)
[2024-06-08 00:47] LABS: Alanine Aminotransferase 10 U/L (0-40); Albumin Level 3.3 g/dL (3.5-5.0); Alkaline Phosphatase 90 U/L (39-117); Anion Gap 18 (12-20); Aspartate Amino Transferase 12 U/L (5-37); Bilirubin Total 0.1 mg/dL (0.0-1.0); Blood Urea Nitrogen 19 mg/dL (9-16); Calcium 8.7 mg/dL (8.4-10.2); Carbon Dioxide 20 mmol/L (22-29); Chloride 109 mmol/L (96-108); Creatinine Clr Calc Pharmacy 37.1; Estimated Glomerular Filt Rate 34; Glucose Random 244 mg/dL (60-115); Magnesium 1.5 mg/dL (1.6-2.6); Potassium 3.5 mmol/L (3.3-5.1); Sodium 143 mmol/L (135-145)
[2024-06-08 00:54] LABS: B Type Natriuretic Peptide 200 pg/mL (<100); Troponin-I High Sensitivity 5.6 ng/L (<3.5-35.0)
[2024-06-08 01:11] LABS: Influenza A PCR NEGATIVE (Negative); Influenza B PCR NEGATIVE (Negative); Resp Syncy Virus RNA Qual PCR NEGATIVE (Negative); SARS COV2 PCR INHOUSE NEGATIVE (Negative)
--- NOTE | 2024-06-08 02:13 | ED.GENADULT ---
HPI - General Adult General Chief complaint: Dyspnea Stated complaint: SOB Time Seen by Provider: 06/08/24 02:12 History of Present Illness ED Provider: Caty BANGURA narrative: The patient is a 48-year-old male with a history of multiple medical problems including congestive heart failure who was discharged from the hospital yesterday after a 4 day hospitalization for problems with gastroesophageal reflux presumed to be esophagitis. After returning home he realized that he had gained a lot of weight and was short of breath on exertion and had edema of his legs and his torso. No fevers. He contacted his regular doctor's office and was advised to come to the hospital for further evaluation. Related Data Home Medications ?Medication ?Instructions ?Recorded ?Confirmed escitalopram oxalate 10 mg tablet 10 mg PO DAILY 08/01/22 06/08/24 trazodone 50 mg tablet 100 mg PO BEDTIME 08/01/22 06/08/24 aspirin 81 mg tablet,delayed 81 mg PO DAILY 10/06/22 06/08/24 release atorvastatin 40 mg tablet 40 mg PO DAILY 10/06/22 06/08/24 gabapentin 300 mg capsule 300 mg PO TID 10/06/22 06/08/24 metoprolol succinate 100 mg 100 mg PO DAILY 10/06/22 06/08/24 tablet,extended release 24 hr furosemide 40 mg tablet 80 mg PO DAILY 06/26/23 06/08/24 insulin glargine 100 unit/mL (3 6 unit subcut BEDTIME PRN 06/26/23 06/08/24 mL) subcutaneous pen (Lantus Hyperglycemia Solostar U-100 Insulin) furosemide 40 mg tablet 40 mg PO BEDTIME 11/24/23 06/08/24 fluticasone 250 mcg-salmeterol 50 1 ea inhalation BID 12/22/23 06/08/24 mcg/dose blistr powdr for inhalation (Advair Diskus) albuterol sulfate 90 mcg/actuation 2 puff inhalation Q4H PRN 04/26/24 06/08/24 aerosol inhaler bronchospasm insulin lispro 100 unit/mL 1 sliding scale dose subcut TIDAC 04/26/24 06/08/24 subcutaneous solution amlodipine 5 mg tablet 10 mg PO DAILY 06/02/24 06/08/24 diclofenac sodium 1 % topical gel 1 g topical QID PRN Pain 06/02/24 06/08/24 fluticasone propionate 110 2 puff inhalation BID 06/02/24 06/08/24 mcg/actuation HFA aerosol inhaler Previous Rx's ?Medication ?Instructions ?Recorded magnesium oxide 400 mg (241.3 mg 400 mg PO BIDPC #60 tabs 08/20/22 magnesium) tablet sucralfate 1 gram tablet 1 g PO QIDACHS #120 tabs 09/10/22 hydralazine 100 mg tablet 100 mg PO TID 30 days #90 tabs 05/09/23 fluconazole 100 mg tablet 100 mg PO DAILY 11 days #11 tabs 06/06/24 pantoprazole 40 mg tablet,delayed 40 mg PO BID 60 days #120 tabs 06/06/24 release Allergies Allergy/AdvReac Type Severity Reaction Status Date / Time dulaglutide [From [facility] [place]] Allergy Unknown Verified 06/07/24 23:32 metformin [METFORMIN] AdvReac Mild DIARRHEA, Verified 06/07/24 23:32 nausea and vomiting Review of Systems Review of Systems: Yes all other systems are reviewed and are negative [facility] Past Medical History Medical History KELVIN (acute kidney injury) Hypertension Chronic heart failure with preserved ejection fraction (HFpEF) Acute respiratory failure with hypoxia Congestive heart failure CKD (chronic kidney disease) stage 1, GFR 90 ml/min or greater Depression COPD exacerbation YARELIS (obstructive sleep apnea) CHF exacerbation Hypoxia Acute respiratory failure Uncontrolled hypertension Acute on chronic diastolic (congestive) heart failure Acute on chronic anemia Hyperglycemia due to type 2 diabetes mellitus YARELIS (obstructive sleep apnea) Congestive heart failure Anxiety HLD (hyperlipidemia) Diabetes Hypercholesteremia HTN (hypertension) Asthma PAD (peripheral artery disease) Surgical History History of esophagogastroduodenoscopy S/P angiogram of extremity Family History Family History Father Alzheimer disease CAD (coronary artery disease) Social History Social History Household Members: Family Household Members Other:: 3 Housing: Apartment Do you presently have visiting nurse or other home services: No Unable to assess alcohol history related to: Unknown Alcohol intake: former Comment: low fall risk Patient Tobacco Use Status: Current everyday Tobacco user Tobacco use type: Cigarette Cigarettes Per Day: 5 Years Smoked: >30 e-Cigarette/Vaping Use: Never Used Second Hand Smoke Exposure: Yes Substance Use Type: Former Substance User Advance Directives Date on File: 06/21/21 service: No Current occupational status: disabled Physical Exam ED Vital Signs: Vital Signs - 24 hr 06/07/24 23:20 06/07/24 23:28 06/08/24 02:09 Temperature 99 F 99.0 F Pulse Rate 77 77 75 Respiratory Rate 18 14 20 Blood Pressure 157/73 H 157/73 H 149/72 H Pulse Oximetry 97 95 94 Oxygen Delivery Method Room Air Room Air Room Air Oxygen Flow Rate 06/08/24 02:31 06/08/24 02:31 06/08/24 03:00 Temperature Pulse Rate Respiratory Rate Blood Pressure 152/77 H Pulse Oximetry 86 L 92 Oxygen Delivery Method Room Air Nasal Cannula Oxygen Flow Rate 2 BMI result Body Mass Index 25.9 Const Other: The patient was asleep when I entered the room. He had been placed on 2 L nasal cannula of oxygen because he had been saturating at 86% on room air. ?He walk easily to a normal mental status. He looks chronically ill, but did not seem acutely ill. HENPR Face and sinus: Yes normal facial exam Mouth: Normal oral and palatal mucosa present and moist mucous membranes Eyes General: appearance normal, both eyes and all related structures Eyelids: Yes eyelids normal Pupils: Equal, round and reactive pupils present EOM: EOMs intact bilaterally Neck Other: No obvious JVD Resp Other: No obvious increased work of breathing. ?Fine crackles at the bases bilaterally. Cardio Rate: regular rate Rhythm: regular rhythm Heart sounds: S1 normal heart sound present and S2 normal heart sound present GI Other: Soft, nontender Skin Other: Pale and dry Neuro Other: Awake, alert, with a normal mental status. ?Cranial nerves grossly intact. Moving extremities normally. Cranial nerves: Yes Equal, round and reactive pupils present Extrem Other: 1-2 plus pitting edema of both lower extremities. Medications Administered Generic Name Dose Route Start Last Admin Trade Name Freq PRN Reason Stop Dose Admin Amlodipine Besylate 10 mg 06/08/24 11:20 06/08/24 11:52 Amlodipine Besylate 10 Mg Tablet PO 10 mg DAILY DIONISIO Administration Protocol Enoxaparin Sodium 40 mg 06/08/24 09:00 06/08/24 09:23 Enoxaparin Sodium 40 Mg/0.4 Ml Syringe SUBCUT 40 mg Q24H DIONISIO Administration Fluconazole 100 mg 06/08/24 11:20 06/08/24 13:06 Fluconazole 100 Mg Tablet PO 100 mg DAILY DIONISIO Administration Fluticasone/Vilanterol 1 puff 06/08/24 11:45 06/08/24 12:15 Fluticasone/Vilanterol 100/25 Blst.W.Dev INHALE 1 puff RDAILY [facility] Administration Furosemide 80 mg 06/08/24 09:00 06/08/24 09:23 Furosemide 100 Mg/10 Ml Vial IVPUSH 80 mg DAILY [facility] Administration Protocol Hydralazine HCl 100 mg 06/08/24 15:00 06/08/24 14:16 Hydralazine Hcl 50 Mg Tablet PO 100 mg TID [facility] Administration Protocol Insulin Human Lispro 0 unit 06/08/24 07:30 06/08/24 13:44 Insulin Lispro 100 Unit/Ml 3 Ml Vial SUBCUT 6 unit QIDAS [facility] Administration Protocol Metoprolol Succinate 100 mg 06/08/24 11:20 06/08/24 11:52 Metoprolol Succinate Er 100 Mg Tab.Er.24h PO 100 mg DAILY [facility] Administration Protocol Sodium Chloride 3 ml 06/08/24 08:00 06/08/24 07:12 0.9 % Sodium Chloride Flush 3 Ml Syringe IVFLUSH 3 ml QSHIFT [facility] Administration Sucralfate 1 gm 06/08/24 11:30 06/08/24 11:52 Sucralfate 1 Gm Tablet PO 1 gm QIDACHS [facility] Administration Discontinued Medications Generic Name Dose Route Start Last Admin Trade Name Freq PRN Reason Stop Dose Admin Furosemide 80 mg 06/08/24 02:37 06/08/24 03:00 Furosemide 100 Mg/10 Ml Vial IVPUSH 06/08/24 02:38 80 mg ONCE ONE Administration Protocol Magnesium Sulfate 2 gm in 50 mls @ 25 mls/hr 06/08/24 06:18 06/08/24 09:17 Magnesium Sulfate/H2o IV 06/08/24 08:17 Infused ONCE ONE Infusion Potassium Chloride 40 meq 06/08/24 06:18 06/08/24 07:13 Potassium Chloride Packet 20 Meq Packet PO 06/08/24 06:19 40 meq ONCE ONE Administration Medical Decision Making Medical Decision Making MDM Narrative: Patient is a 48-year-old with multiple medical problems, including a history of congestive heart failure, and COPD. He was recently hospitalized for an acute kidney injury and was discharged yesterday. He returns with shortness of breath and peripheral edema. Quite surprisingly his renal function is significantly worse after just under two days. His chest x-ray is consistent with pulmonary edema. His physical exam is consistent with an exacerbation of chronic congestive heart failure. His oxygen were in the mid 80s, particularly when he was asleep. ?He was given 80 mg of IV furosemide and admitted to the hospital service. Lab Data 06/08/24 05:00 06/08/24 05:00 Labs: Lab Results 06/08/24 06/08/24 06/08/24 Range/Units 00:23 00:28 03:22 WBC 10.1 (4.8-10.8) X10*3/uL RBC 3.93 L (4.60-5.80) X10*6/uL Hgb 9.9 L (14.0-18.0) g/dl Hct 29.4 L (42.0-52.0) % MCV 74.8 L (80.0-98.0) fL MCH 25.2 L (27.0-33.0) pg MCHC 33.7 (31.0-36.0) g/dl RDW 20.4 H (11.0-16.0) % Plt Count 245 (160-400) X10*3/uL MPV 9.4 (9.4-12.4) fL Absolute Nucleated RBC 0.000 (0.0-0.012) X10*3/uL Nucleated RBC % (auto) 0.0 (0.0-0.2) /100WBC PT 10.1 L (11.1-13.3) SEC INR 0.8 L (0.9-1.1) Sodium 143 (135-145) mmol/L Potassium 3.5 (3.3-5.1) mmol/L Chloride 109 H (96-108) mmol/L Carbon Dioxide 20 L (22-29) mmol/L Anion Gap 18 (12-20) BUN 19 H (9-16) mg/dL Creatinine 2.09 H (0.5-1.4) mg/dL Estim Creat Clear Calc 37.1 Estimated GFR 34 POC Glucose 175 H (60-115) mg/dL Random Glucose 244 H (60-115) mg/dL Calcium 8.7 (8.4-10.2) mg/dL Magnesium 1.5 L (1.6-2.6) mg/dL Total Bilirubin 0.1 (0.0-1.0) mg/dL AST 12 (5-37) U/L ALT 10 (0-40) U/L Alkaline Phosphatase 90 (39-117) U/L Troponin I High Sens 5.6 (<3.5-35.0) ng/L B-Natriuretic Peptide 200 H (<100) pg/mL Total Protein 6.0 L (6.5-8.0) g/dL Albumin 3.3 L (3.5-5.0) g/dL Influenza Type A (PCR) NEGATIVE (Negative) Influenza Type B (PCR) NEGATIVE (Negative) RSV RNA Qual (PCR) NEGATIVE (Negative) SARS-CoV-2 RNA (RT-PCR) NEGATIVE (Negative) Discharge Plan Discharge Clinical Impression: Acute exacerbation of chronic heart failure, Acute renal insufficiency Patient Disposition: Admitted As Inpatient Interventions: Admission Worksheet (ED) Last Done: 06/08/24 16:12 Discharge Date/Time: 06/08/24 17:01
--- NOTE | 2024-06-08 02:31 | PC.NURSE ---
Pt SPO2 dropping down to 86%, pt placed on 2L nc. Pt does have YARELIS and uses cpap and PRN o2 at home. MD mcclain
[2024-06-08] MEDS: Furosemide 100 MG/10 ML VIAL 80 MG IVPUSH ×2 (03:00→09:23)
--- NOTE | 2024-06-08 03:21 | PC.NURSE ---
pt rang to state that his blood glucose on his meter was reading 59. denies feeling any symptoms of hypoglycemia at this time. POC checked with hospital meter: 175.
[2024-06-08 03:28] LABS: Glucose, Whole Blood 175 mg/dL (60-115)
--- NOTE | 2024-06-08 03:49 | PM.IMHP ---
History of Present Illness Date of Service: 06/08/24 Chief Complaint: Dyspnea This is a 48-year-old male with pertinent history of insulin-dependent diabetes mellitus, hypertension, mood disorder, COPD not on home oxygen, alcohol use disorder, congestive heart failure unspecified EF who presents to the emergency department for evaluation of dyspnea. Of note, patient was recently admitted with chest pain due to esophagitis and discharged on 06/06 with p.o. fluconazole and pantoprazole. Patient underwent EGD during previous hospitalization which showed esophageal candidiasis and gastritis. Patient stated that he started having dyspnea once he went home after being discharge. He gained weight and started swelling up. Dyspnea was worse with exertion and when he was lying down. Also had swelling of bilateral lower extremities. No fever, chills, nausea, vomiting, chest pain, palpitations, abdominal pain, changes in urinary or bowel habits. In the emergency department, patient was found to be hypoxic and imaging concerning for pulmonary edema. Patient was initiated on IV diuresis and placed on supplemental oxygen. Review of Systems Cardiovascular: Cardiovascular: Reports dyspnea on exertion and Reports orthopnea Respiratory: Respiratory: Reports dyspnea on exertion Gastrointestinal: Gastrointestinal: Reports no additional gastrointestinal complaints Genitourinary: Genitourinary: Reports no additional male genitourinary complaints [facility] Medical History KELVIN (acute kidney injury) Hypertension Chronic heart failure with preserved ejection fraction (HFpEF) Acute respiratory failure with hypoxia Congestive heart failure CKD (chronic kidney disease) stage 1, GFR 90 ml/min or greater Depression COPD exacerbation YARELIS (obstructive sleep apnea) CHF exacerbation Hypoxia Acute respiratory failure Uncontrolled hypertension Acute on chronic diastolic (congestive) heart failure Acute on chronic anemia Hyperglycemia due to type 2 diabetes mellitus YARELIS (obstructive sleep apnea) Congestive heart failure Anxiety HLD (hyperlipidemia) Diabetes Hypercholesteremia HTN (hypertension) Asthma PAD (peripheral artery disease) Family History Father Alzheimer disease CAD (coronary artery disease) Surgical History History of esophagogastroduodenoscopy S/P angiogram of extremity Social History Household Members: Family Household Members Other:: girlfriend Housing: Apartment Do you presently have visiting nurse or other home services: No Unable to assess alcohol history related to: Unknown Alcohol intake: former Comment: low fall risk Patient Tobacco Use Status: Current everyday Tobacco user Tobacco use type: Cigarette Cigarettes Per Day: 5 Years Smoked: >30 Smoked in Last 30 Days: Yes e-Cigarette/Vaping Use: Never Used Second Hand Smoke Exposure: Yes Substance Use Type: Former Substance User Advance Directives: Yes Advance Directives on File: Yes Advance Directives Date on File: 06/21/21 Do you have a plan to hurt others: No Plan service: No Current occupational status: disabled Meds Allergies Allergy/AdvReac Type Severity Reaction Status Date / Time dulaglutide [[facility]] Allergy Unknown Verified 06/07/24 23:32 metformin [METFORMIN] AdvReac Mild DIARRHEA, Verified 06/07/24 23:32 nausea and vomiting Home Medications ?Medication ?Instructions ?Recorded ?Confirmed ?Last Taken ?Type escitalopram oxalate 10 mg tablet 10 mg PO DAILY 08/01/22 06/02/24 12/21/23 History trazodone 50 mg tablet 100 mg PO BEDTIME 08/01/22 06/02/24 12/21/23 History aspirin 81 mg tablet,delayed 81 mg PO DAILY 10/06/22 06/02/24 12/21/23 History release atorvastatin 40 mg tablet 40 mg PO DAILY 10/06/22 06/02/24 12/21/23 History gabapentin 300 mg capsule 300 mg PO TID 10/06/22 06/02/24 12/21/23 History metoprolol succinate 100 mg 100 mg PO DAILY 10/06/22 06/02/24 12/21/23 History tablet,extended release 24 hr furosemide 40 mg tablet 80 mg PO DAILY 06/26/23 06/02/24 12/21/23 History insulin glargine 100 unit/mL (3 27 unit subcut BEDTIME PRN 06/26/23 06/02/24 12/21/23 History mL) subcutaneous pen (Lantus Hyperglycemia Solostar U-100 Insulin) furosemide 40 mg tablet 40 mg PO BEDTIME 11/24/23 06/02/24 12/21/23 History fluticasone 250 mcg-salmeterol 50 1 ea inhalation BID 12/22/23 06/02/24 12/21/23 History mcg/dose blistr powdr for inhalation (Advair Diskus) albuterol sulfate 90 mcg/actuation 2 puff inhalation Q4H PRN 04/26/24 06/02/24 Unknown History aerosol inhaler bronchospasm insulin lispro 100 unit/mL 10 - 14 unit subcut TID 04/26/24 06/02/24 Unknown History subcutaneous solution amlodipine 5 mg tablet 10 mg PO DAILY 06/02/24 06/02/24 Unknown History diclofenac sodium 1 % topical gel 1 g topical QID PRN Pain 06/02/24 06/02/24 Unknown History fluticasone propionate 110 2 puff inhalation BID 06/02/24 06/02/24 Unknown History mcg/actuation HFA aerosol inhaler Physical Exam Vital Signs and Narrative: Vital Signs: Last Vital Signs Temp 99.0 F 06/07/24 23:28 Pulse 75 06/08/24 02:09 Resp 20 06/08/24 02:09 BP 152/77 H 06/08/24 03:00 Pulse Ox 92 06/08/24 02:31 O2 Del Method Nasal Cannula 06/08/24 02:31 O2 Flow Rate 2 06/08/24 02:31 BMI result Body Mass Index 25.9 Middle-aged male lying in bed in mild distress on supplemental oxygen Neck supple Regular rate and rhythm, S1-S2 heard Bilateral crackles appreciated Abdomen soft nontender, no guarding, no rigidity Patient is awake, alert and oriented to self, place, time and person ; no focal motor deficit Psych: Normal mood Bilateral pedal edema Results Labs 06/08/24 05:00 06/08/24 05:00 Labs: Laboratory Results - last 24 hr 06/08/24 06/08/24 06/08/24 00:23 00:28 03:22 MCV 74.8 L MCH 25.2 L MCHC 33.7 RDW 20.4 H Plt Count 245 MPV 9.4 Absolute Nucleated RBC 0.000 Nucleated RBC % (auto) 0.0 PT 10.1 L INR 0.8 L Anion Gap 18 Estim Creat Clear Calc 37.1 Estimated GFR 34 POC Glucose 175 H Random Glucose 244 H Calcium 8.7 Magnesium 1.5 L Total Bilirubin 0.1 AST 12 ALT 10 Alkaline Phosphatase 90 Troponin I High Sens 5.6 B-Natriuretic Peptide 200 H Total Protein 6.0 L Albumin 3.3 L Influenza Type A (PCR) NEGATIVE Influenza Type B (PCR) NEGATIVE RSV RNA Qual (PCR) NEGATIVE SARS-CoV-2 RNA (RT-PCR) NEGATIVE Imaging Radiologist's Impressions: Impressions Chest X-Ray 06/08/24 00:06 IMPRESSION: Vascular congestion and perihilar increased markings possibly mild edema. There is lingular atelectasis or scarring. Assessment and Plan (1) Congestive heart failure: Status: Acute (2) Acute renal insufficiency: Status: Acute Plan This is a 48-year-old male with pertinent history of insulin-dependent diabetes mellitus, hypertension, mood disorder, COPD not on home oxygen, alcohol use disorder, congestive heart failure unspecified EF who presents to the emergency department for evaluation of dyspnea. #. Acute hypoxic respiratory failure due to acute exacerbation of congestive heart failure, unspecified EF: Will admit patient with supplemental oxygen. Initiating IV diuresis. Strict I's and O's. Low-salt diet. Obtaining transthoracic echocardiogram #. Acute kidney injury, likely cardiorenal in the setting of above: Monitor creatinine and urine output with diuresis. Avoid nephrotoxins #. COPD: No exacerbation during admission. Continue home inhaler #. Insulin-dependent diabetes mellitus with hyperglycemia: Initiating basal plus insulin regimen #. Hypertension: Continue home antihypertensives #. Mood disorder: Continue home mood stabilizers #. Esophagitis: On fluconazole and pantoprazole Med rec pending DVT prophylaxis: Lovenox Full code Admit as inpatient and will require two night minimum hospital stay for supplemental oxygen, IV diuresis (as above), which is not possible in a lesser acute setting. Quality Stroke Does the patient have a stroke diagnosis?: No VTE Prior VTE?: No VTE Risk Level:: Medical - moderate - high VTE Device Contraindication: Treatment Not Indicated VTE Drug Contraindication: N/A - Med Ordered
[2024-06-08 05:29] LABS: MANUAL DIFF FLAG NO
[2024-06-08 05:30] LABS: Basophils Percent Auto 0.4 % (0-2); Eosinophils Absolute Auto 0.2 X10*3/uL (0.0-0.4); Hematocrit 30.4 % (42.0-52.0); Imm Gran Abs Auto 0.07 X10*3/uL (0.00-0.03); Imm Gran Pct Auto 0.6 % (0.0-0.4); Lymphocytes Absolute Auto 1.9 X10*3/uL (1.2-4.9); Lymphocytes Percent Auto 17.6 % (20-40); Mean Corpuscular HGB Conc 32.9 g/dl (31.0-36.0); Mean Corpuscular Hemoglobin 24.8 pg (27.0-33.0); Mean Corpuscular Volume 75.4 fL (80.0-98.0); Mean Platelet Volume 10.5 fL (9.4-12.4); Monocytes Absolute Auto 1.1 X10*3/uL (0.1-1.2); Monocytes Percent Auto 10.2 % (2-11); Neutrophils Absolute Auto 7.6 x10*3/uL (2.0-8.3); Neutrophils Percent Auto 69.2 % (45-73); Platelet Count 269 X10*3/uL (160-400); Red Blood Count 4.03 X10*6/uL (4.60-5.80); Red Cell Distribution Width 20.3 % (11.0-16.0)
[2024-06-08 05:49] LABS: Anion Gap 13 (12-20); Blood Urea Nitrogen 18 mg/dL (9-16); Calcium 8.7 mg/dL (8.4-10.2); Carbon Dioxide 26 mmol/L (22-29); Chloride 108 mmol/L (96-108); Creatinine Clr Calc Pharmacy 44.6; Estimated Glomerular Filt Rate 42; Glucose Random 160 mg/dL (60-115); Potassium 3.1 mmol/L (3.3-5.1); Sodium 144 mmol/L (135-145)
[2024-06-08] MEDS: 0.9 % Sodium Chloride Flush 3 ML SYRINGE IVFLUSH ×3 (07:12→22:05)
[2024-06-08] MEDS: Magnesium Sulfate/H2O 2 GM/50 ML PIGGYBACK IV (07:12)
[2024-06-08] MEDS: Potassium Chloride Packet 20 MEQ PACKET 40 MEQ PO (07:13)
[2024-06-08 07:26] LABS: Glucose, Whole Blood 150 mg/dL (60-115)
[2024-06-08] MEDS: Enoxaparin Sodium 40 MG/0.4 ML SYRINGE SUBCUT (09:23)
--- NOTE | 2024-06-08 10:47 | PC.NURSE ---
informed pt to remove his DM dexacon which he did willingly. will do POC by [facility]
--- NOTE | 2024-06-08 11:00 | CA_ITS ---
Transthoracic Echocardiogram Patient (Last, First, Middle): Ciara Quiroga, Gender: Male Date of : 1975 Age: 48 Procedure Date: 06/08/2024 Procedure Type: Transthoracic Echocardiogram Location: ER Height: 165.1 cm Weight: 70.31 kg BSA: 1.78 m2 Heart Rate: 78 bpm BP: 174 / 73 mmHg Vessel Welder: SB Referring MD: lAberto John MD Symptoms: CHF Study Quality: Adequate ECG Rhythm: Sinus Conclusions: - The left ventricular systolic function is normal. The calculated ejection fraction is 62% by biplane method. - Evidence suggests grade II (moderate) diastolic dysfunction. - No obvious valvular pathology seen on this study. Findings Left Ventricle Normal left ventricular cavity size. There is normal left ventricular wall thickness. The left ventricular systolic function is normal. The calculated ejection fraction is 62% by biplane method. There is no evidence of regional wall motion abnormalities. Evidence suggests grade II (moderate) diastolic dysfunction. There is mild septal asymmetric hypertrophy. Right Ventricle Normal right ventricular cavity size and systolic function. Atria Both atria are normal in size. Aortic Valve There is a normal trileaflet aortic valve. There is no aortic valve stenosis. There is no aortic valve regurgitation. Mitral Valve The mitral valve appears normal. There is trace mitral valve regurgitation. There is no mitral valve stenosis. Pulmonic Valve The pulmonic valve is likely normal. Tricuspid Valve There is trace tricuspid valve regurgitation. Tricuspid regurgitation envelope is inadequate for calculation of right ventricular systolic pressure. Great Vessels The asc aorta is normal in size. Venous The inferior vena cava is normal in size and collapses less than 50% with inspiration. Pericardium/Pleural There is no evidence of pericardial effusion. Prior Study Comparison No significant change compared to prior study dated: 08/01/2022. Recommendations, Care & Conclusions No obvious valvular pathology seen on this study. Measurements 2D Linear Measurements IVSd: 1.11 0.6-0.9/0.6-1.0 cm LVIDd: 4.64 3.9-5.3/4.2-5.9 cm LVIDd Index: 2.61 2.4-3.2/2.2-3.1 cm/m2 LVIDs: 2.90 2.0-3.6 cm LVPWd: 0.94 0.7-1.1 cm LA Diam: 3.70 2.7-3.8/3.0-4.0 cm LAIDs Index: 2.08 1.5-2.3 cm/m2 LV Mass: 207.22 67-162/88-224 g LV Mass Index: 116.42 43-95/49-115 g/m2 LVOT Diam: 2.00 3.0+(-)1.3 cm 2D Systolic Function EF 4C: 59.60 >55% EF 2C: 63.10 >55% EF BiP: 61.70 >55% Mitral Valve MV Pk E: 1.56 MV PK A: 0.86 MV Decel Time: 174.00 E/A: 1.80 E'Lateral: 6.74 E'Medial: 8.92 E/E' Med: 17.50 E/E' Lat: 23.10 PHT: 51.00 MVA PHT: 4.31 Decel Walsh: 8.98 Aortic Valve AoV Pk Ajay: 1.34 AoV Pk Grad: 7.00 LUCIANA: 2.68 LVOT LVOT Pk Ajay: 1.10 LVOT Mn Ajay: 0.79 LVOT VTI: 0.22 LVOT Pk Grad: 5.00 LVOT Mn Grad: 3.00 LVOT Diam: 2.00 LVOT Area: 3.14 Diastolic Function MV Pk E: 1.56 MV Pk A: 0.86 E/A: 1.80 E'Medial: 8.92 E/E' Med: 17.50 E' Laterial: 6.74 E/E' Lat: 23.10 Right Ventricle TAPSE (mm): 24.80 TVS' Ajay: 14.30 Tricuspid Valve RA Press: 8.00 Great Vessels Aorta Sinus of Valsalva: 2.60 2.0-3.5 cm Ao Asc: 3.00 2.1-3.4 cm Pulmonary Veins Pulm Vein S/D 0.80 Pulmonary Valve PV Pk Ajay: 1.09 Peak PV Grad: 5.00 Updated in Other Vendor System with Status of Final Donaldo Armas MD electronically signed on 06/10/2024 11:21:53 AM with status of Final
--- NOTE | 2024-06-08 11:07 | PHA.MEDREC ---
Pharmacy Consult ? Medication Reconciliation Pharmacy has completed the medication reconciliation. Patient last discharged 06/06/24. Reviewed with patient and confirmed meds.
[2024-06-08] MEDS: Metoprolol Succinate ER 100 MG TAB.ER.24H PO (11:52)
[2024-06-08] MEDS: Sucralfate 1 GM TABLET PO ×3 (11:52→22:05)
[2024-06-08] MEDS: amLODIPine Besylate 10 MG TABLET PO (11:52)
--- NOTE | 2024-06-08 11:53 | PM.EVENT ---
Event Note Date of Service: 06/08/24 Event Note: Seen and examined this morning Follow-up for CHF Off of oxygen and reports significant improvement in breathing This is a 48-year-old male with pertinent history of insulin-dependent diabetes mellitus, hypertension, mood disorder, COPD not on home oxygen, alcohol use disorder, congestive heart failure who presents to the emergency department for evaluation of dyspnea. Acute hypoxic respiratory failure due to acute exacerbation of HFpEF Continue IV diuresis. Low-salt diet Repeat echo ordered Weaned off of oxygen KELVIN on CKD3b likely cardiorenal in the setting of above: Monitor creatinine and urine output with diuresis. Avoid nephrotoxins COPD: No exacerbation Continue continue home inhaler Has both Flovent and Advair on medication list. Will stop Flovent as it appears the Advair has been most recently prescribed uses prn oxygen at baseline Insulin-dependent diabetes mellitus with hyperglycemia: Has insulin pump, uses Lantus only as backup for pump failure. During this hospitalization we will treat with insulin sliding scale and 10 units of Lantus as per previous hospitalization. Monitor blood sugar closely Alcohol use disorder No withdrawal on previous admission Hypertension: Continue home antihypertensives including metoprolol, hydralazine, Norvasc Mood disorder: Continue the citalopram HLD Continue statin Esophagitis: On fluconazole and pantoprazole dvt ppx - lovenox Time Spent With Patient Time: Total time managing care of this patient today ____ minutes.
[2024-06-08] MEDS: Fluticasone/Vilanterol 100/25 BLST.W.DEV 1 PUFF INHALE (12:15)
[2024-06-08 12:34] LABS: Glucose, Whole Blood 286 mg/dL (60-115)
[2024-06-08] MEDS: Fluconazole 100 MG TABLET PO (13:06)
[2024-06-08 13:39] LABS: Glucose, Whole Blood 342 mg/dL (60-115)
[2024-06-08] MEDS: Insulin Lispro 100 UNIT/ML 3 ML VIAL SUBCUT ×2 (13:44→17:21)
[2024-06-08] MEDS: hydrALAZINE HCl 50 MG TABLET 100 MG PO ×2 (14:16→22:05)
--- NOTE | 2024-06-08 16:01 | MHC.CM.PN ---
PT REPORTS HE LIVES WITH HIS BROTHER AND DAUGHTER HE IS INDEPENDENT WITH CARE AND HAS NO SERVICES HE HAS A CPAP AND OXYGEN FROM [facility] ON FILE PCP: STEPHANIE AMOS DCP: HOME NO SERVICES VIA PRIVATE TRANSPORT
[2024-06-08 17:08] LABS: Glucose, Whole Blood 287 mg/dL (60-115)
[2024-06-08] MEDS: Gabapentin 300 MG CAPSULE PO ×2 (17:20→22:05)
[2024-06-08] MEDS: Magnesium Oxide 400 MG TABLET PO (17:20)
[2024-06-08] MEDS: Omeprazole 20 MG CAPSULE.DR PO (17:20)
[2024-06-08 20:14] LABS: Glucose, Whole Blood 105 mg/dL (60-115)
[2024-06-08] MEDS: Insulin Glargine,Hum.rec.anlog 100 UNIT/ML 10 ML VIAL 10 UNIT SUBCUT (21:55)
[2024-06-08] MEDS: Furosemide 40 MG/4 ML VIAL IVPUSH (21:55)
[2024-06-08] MEDS: traZODone HCL 100 MG TABLET PO (22:05)
[2024-06-08] MEDS: Nicotine 14 MG PATCH.TD24 TRANSDERMA (22:10)
[2024-06-09 04:00] VITALS: BP 165/79; PULSE 73; RESP 16; TEMP 36; O2SAT 93
[2024-06-09] MEDS: Omeprazole 20 MG CAPSULE.DR PO (06:24)
[2024-06-09 07:15] LABS: Anion Gap 14 (12-20); Blood Urea Nitrogen 20 mg/dL (9-16); Carbon Dioxide 25 mmol/L (22-29); Chloride 104 mmol/L (96-108); Creatinine Clr Calc Pharmacy 53.2; Estimated Glomerular Filt Rate 51; Glucose Random 271 mg/dL (60-115); Magnesium 1.7 mg/dL (1.6-2.6); Potassium 3.5 mmol/L (3.3-5.1); Sodium 139 mmol/L (135-145)
[2024-06-09 07:21] VITALS: BP 183/85; PULSE 70; RESP 18; TEMP 36.4; O2SAT 95
[2024-06-09 07:55] LABS: Glucose, Whole Blood 264 mg/dL (60-115)
[2024-06-09] MEDS: Furosemide 100 MG/10 ML VIAL 40 MG IVPUSH (08:04)
[2024-06-09] MEDS: Escitalopram Oxalate 10 MG TABLET PO (08:05)
[2024-06-09] MEDS: Atorvastatin Calcium 40 MG TABLET PO (08:05)
[2024-06-09] MEDS: Aspirin Enteric Coated 81 MG TABLET.DR PO (08:05)
[2024-06-09] MEDS: Metoprolol Succinate ER 100 MG TAB.ER.24H PO (08:06)
[2024-06-09] MEDS: Fluconazole 100 MG TABLET PO (08:06)
[2024-06-09] MEDS: amLODIPine Besylate 10 MG TABLET PO (08:06)
[2024-06-09] MEDS: hydrALAZINE HCl 50 MG TABLET 100 MG PO (08:06)
[2024-06-09] MEDS: Insulin Lispro 100 UNIT/ML 3 ML VIAL SUBCUT (08:06)
[2024-06-09] MEDS: Gabapentin 300 MG CAPSULE PO (08:06)
[2024-06-09] MEDS: Magnesium Oxide 400 MG TABLET PO (08:06)
[2024-06-09] MEDS: Enoxaparin Sodium 40 MG/0.4 ML SYRINGE SUBCUT (08:07)
[2024-06-09] MEDS: Sucralfate 1 GM TABLET PO (08:15)
[2024-06-09] MEDS: 0.9 % Sodium Chloride Flush 3 ML SYRINGE IVFLUSH (08:16)
[2024-06-09] MEDS: Fluticasone/Vilanterol 100/25 BLST.W.DEV 1 PUFF INHALE (08:35)
[2024-06-09 08:36] VITALS: PULSE 70; RESP 16; O2SAT 97
[2024-06-09 08:55] VITALS: BP 164/70
--- NOTE | 2024-06-09 10:17 | PM.DS ---
DS: Providers Provider Date of Service: 06/09/24 Date of admission: 06/08/24 03:47 Date of discharge: 06/09/24 Primary care physician: Zari Henry MD Attending physician on discharge: Suzi Wilcox Discharging clinician: Veronica Sinclair DS: Diagnosis Discharge Diagnosis (1) Congestive heart failure: Status: Acute (2) Acute renal insufficiency: Status: Acute DS: Summary Hospital Course Hospital Course: From H&P on the day of admission This is a 48-year-old male with pertinent history of insulin-dependent diabetes mellitus, hypertension, mood disorder, COPD not on home oxygen, alcohol use disorder, congestive heart failure unspecified EF who presents to the emergency department for evaluation of dyspnea. Of note, patient was recently admitted with chest pain due to esophagitis and discharged on 06/06 with p.o. fluconazole and pantoprazole. Patient underwent EGD during previous hospitalization which showed esophageal candidiasis and gastritis. Patient stated that he started having dyspnea once he went home after being discharge. He gained weight and started swelling up. Dyspnea was worse with exertion and when he was lying down. Also had swelling of bilateral lower extremities. No fever, chills, nausea, vomiting, chest pain, palpitations, abdominal pain, changes in urinary or bowel habits. In the emergency department, patient was found to be hypoxic and imaging concerning for pulmonary edema. Patient was initiated on IV diuresis and placed on supplemental oxygen. Acute hypoxic respiratory failure due to acute exacerbation of HFpEF was treated with IV diuretics. Shortness of breath has resolved, he was weaned off of supplemental oxygen is ambulating without difficulty on room air. Repeat echocardiogram was obtained however the results are pending at the time of discharge, can follow-up on an outpatient basis. Recommend to continue Low-salt diet and outpatient follow-up with Cardiology KELVIN on CKD3b likely cardiorenal in the setting of above. Kidney function has continued to improve each day, although not quite back to baseline. Would recommend repeat BMP next week for close monitoring. Patient has follow-up appointment scheduled next with PCP. COPD: No exacerbation Continue continue home inhaler. Has both Flovent and Advair on medication list, as this represents duplication and in light of recently diagnosed candidal esophagitis Will stop Flovent as it appears the Advair has been most recently prescribed. Recommend follow up with pulmonology. Insulin-dependent diabetes mellitus with hyperglycemia: Has insulin pump, uses Lantus only as backup for pump failure. During this hospitalization was treated with insulin sliding scale and 10 units of Lantus as per previous hospitalization. resume insulin pump as per baseline upon discharge. Candidal esophagitis Diagnosed on previous admission Continued on fluconazole Time Attestation Discharge Coordination Time (in mins): 36 Quality: Safe Use of Opioids Does Pt have an Active Cancer Diagnosis on the Problem List?: No Quality: Stroke Does the patient have a stroke diagnosis?: No Physical Exam Vital Signs: Vital Signs: Last Vital Signs Temp 97.6 F 06/09/24 07:21 Pulse 70 06/09/24 08:36 Resp 16 06/09/24 08:36 BP 164/70 H 06/09/24 08:55 Pulse Ox 95 06/09/24 07:21 O2 Del Method Room Air 06/09/24 07:21 O2 Flow Rate 1 06/08/24 07:54 BMI result Body Mass Index 24.0 Const: General: cooperative, comfortable, no acute distress, alert and awake Nutritional Appearance: average body habitus Orientation/consciousness: patient oriented x3 Resp: Effort & Inspection: normal respiratory effort, able to speak in complete sentences, no respiratory distress and no use of accessory muscles Auscultation: clear to auscultation bilaterally Cardio: Jugular venous distension: no JVD GI: Inspection: No distended Palpation (GI): Soft to palpation and nontender Neuro: General: patient oriented x3, moves all extremities and CN's II-XI intact bilaterally Extrem: Other: trace b/l leg edema DS: Data Data Completed and Pending Completed studies during hospitalization [Text1]: Procedures Assistance with Respiratory Ventilation, Less than 24 Consecutive Hours, Continuous Positive Airway Pressure (04/17/23) Detoxification Services for Substance Abuse Treatment (04/26/24) Excision of Esophagus, Via Natural or Artificial Opening Endoscopic, Diagnostic (04/26/24) Excision of Stomach, Pylorus, Via Natural or Artificial Opening Endoscopic, Diagnostic (04/26/24) Introduction of Remdesivir Anti-infective into Peripheral Vein, Percutaneous Approach, [employer] (12/22/23) Labs on day of discharge: Laboratory Results - last 24 hr 06/08/24 06/08/24 06/08/24 12:10 13:31 17:00 Sodium Potassium Chloride Carbon Dioxide Anion Gap BUN Creatinine Estim Creat Clear Calc Estimated GFR POC Glucose 286 H 342 H 287 H Random Glucose Calcium Magnesium 06/08/24 06/09/24 06/09/24 20:01 05:37 07:30 Sodium 139 Potassium 3.5 Chloride 104 Carbon Dioxide 25 Anion Gap 14 BUN 20 H Creatinine 1.46 H Estim Creat Clear Calc 53.2 Estimated GFR 51 POC Glucose 105 264 H Random Glucose 271 H Calcium 9.0 Magnesium 1.7 Discharge Plan Discharge Anticipated Discharge Date/Time: 06/09/24 10:09 Patient Disposition: Home, Self-Care Discharge Diagnosis: chf exacerbation Referrals: Zari Henry MD [Primary Care Provider] - 1 Week Discharge Medications: New nicotine [Nicoderm CQ] 14 mg/24 hr patch 24 hour 1 patch transdermal Q24H Qty: 28 0RF Continued hydralazine 100 mg tablet 100 mg PO TID 30 Days Qty: 90 5RF sucralfate 1 gram Tablet 1 g PO QIDACHS Qty: 120 0RF trazodone 50 mg tablet 100 mg PO BEDTIME escitalopram oxalate 10 mg tablet 10 mg PO DAILY atorvastatin 40 mg tablet 40 mg PO DAILY gabapentin 300 mg capsule 300 mg PO TID Hold Instructions: Resume on 11/07/22. metoprolol succinate 100 mg tablet extended release 24 hr 100 mg PO DAILY magnesium oxide 400 mg (241.3 mg magnesium) Tablet 400 mg PO BIDPC Qty: 60 0RF fluticasone propion-salmeterol [Advair Diskus] 250-50 mcg/dose blister with device 1 ea inhalation BID amlodipine 5 mg tablet 10 mg PO DAILY diclofenac sodium 1 % gel 1 g TOPICAL QID PRN (Reason: Pain) Rx Instructions: left chest wall pantoprazole 40 mg tablet,delayed release (DR/EC) 40 mg PO BID 60 Days Qty: 120 0RF fluconazole 100 mg tablet 100 mg PO DAILY 11 Days Qty: 11 0RF Rx Instructions: END DATE: 06/16/24 insulin glargine [Lantus Solostar U-100 Insulin] 100 unit/mL (3 mL) insulin pen 6 unit subcut BEDTIME PRN (Reason: Hyperglycemia) Rx Instructions: pt uses as backup to insulin pump furosemide 40 mg tablet 80 mg PO DAILY Rx Instructions: IN THE MORNING furosemide 40 mg tablet 40 mg PO BEDTIME albuterol sulfate 90 mcg/actuation HFA aerosol inhaler 2 puff inhalation Q4H PRN (Reason: bronchospasm) insulin lispro 100 unit/mL solution 1 sliding scale dose subcut TIDAC Rx Instructions: USES IN INSULIN PUMP aspirin 81 mg tablet,delayed release (DR/EC) 81 mg PO DAILY Discontinued fluticasone propionate 110 mcg/actuation HFA aerosol inhaler 2 puff INHALATION BID Discharge Orders: Discharge Order (Routine); Ordered 06/09/24 Ordered By: Veronica Sinclair Activity on Discharge: As tolerated Stand Alone Forms: Patient Portal Discharge page Print Language: Persian Other Ambulatory Orders: Basic Metabolic Panel (Routine) Timeframe: [id number] Facility: [facility] - Location: Laboratory Ordered By: Veronica Sinclair Care Plan Goals: See below Health Concerns: Exacerbation of CHF KELVIN Tobacco dependence Plan of Treatment: Recommend repeat lab work next week monitor kidney function Keep follow-up appointment with PCP as scheduled on Stopped taking Flovent as this is duplication with Advair. Discussed with potato seed cutter Recommend following diabetic and low-salt diet. Monitor fluid intake smoking cessation advised - use nicotine patch daily Assessment: See discharge summary
[2024-06-09] MEDS: Nicotine 14 MG PATCH.TD24 TRANSDERMA (10:25)
--- NOTE | 2024-06-09 11:06 | MHC.CM.PN ---
PT WILL BE DISCHARGED HOME TODAY WITH NO SERVICES VIA PRIVATE TRANSPORT
== END 2024-06-09 11:23 | disposition home or self-care (01) | DRG 194 ==
LOC: HO.ED 06-08 03:46 → HO.EDOVER 06-08 03:52 → HO.S3 06-08 15:30
PROVIDERS: Admitting Provider Student in an Organized Health Care Education/Training Program; Emergency Provider Emergency Medicine; PCP Internal Medicine; Visit Provider Physician Assistant Medical
DX: I13.0 Hypertensive heart and chronic kidney disease with heart failure and stage 1 through stage 4 chronic kidney disease, or unspecified chronic kidney disease (principal); J96.01 Acute respiratory failure with hypoxia; N17.9 Acute kidney failure, unspecified; B37.81 Candidal esophagitis; E11.22 Type 2 diabetes mellitus with diabetic chronic kidney disease; E11.65 Type 2 diabetes mellitus with hyperglycemia; I50.32 Chronic diastolic (congestive) heart failure; E78.5 Hyperlipidemia, unspecified; N18.32 Chronic kidney disease, stage 3b; F10.90 Alcohol use, unspecified, uncomplicated; Z20.822 Contact with and (suspected) exposure to COVID-19; Z79.4 Long term (current) use of insulin; Z79.82 Long term (current) use of aspirin; Z79.899 Other long term (current) drug therapy
CPT/HCPCS: 0241U; 36415; 36600; 71045; 71046; 71250; 78580; 80048; 80053; 80076; 81001; 81003; 82010; 82570; 82803; 82947; 83540; 83605; 83735; 83880; 84300; 84484; 85025; 85027; 85379; 85610; 87040; 93005; 93306; 93970; 94640; 94660; 94664; 99285; A9540; J0696; J1644; J1650; J1940; J2405; J2543; J3475

== ENCOUNTER → 2024-06-07 | Outpatient (BNV) | payer OTHER, SELFPAY | PROVIDERS: Admitting Provider Student in an Organized Health Care Education/Training Program; Emergency Provider Emergency Medicine; PCP Internal Medicine; Visit Provider Internal Medicine Cardiovascular Disease | DX: R94.31 Abnormal electrocardiogram [ECG] [EKG] (principal) | CPT/HCPCS: 93010 ==

== ENCOUNTER 2024-06-08 03:47 | Outpatient (BNV) | payer OTHER, SELFPAY | END 2024-06-08 11:00 | PROVIDERS: Admitting Provider Student in an Organized Health Care Education/Training Program; Emergency Provider Emergency Medicine; PCP Internal Medicine; Visit Provider Internal Medicine | DX: I50.30 Unspecified diastolic (congestive) heart failure (principal); I42.2 Other hypertrophic cardiomyopathy | CPT/HCPCS: 93306 ==

== ENCOUNTER → 2024-06-08 03:47 | Outpatient (BNV) | payer OTHER, SELFPAY | PROVIDERS: Admitting Provider Student in an Organized Health Care Education/Training Program; Emergency Provider Emergency Medicine; PCP Internal Medicine; Visit Provider Student in an Organized Health Care Education/Training Program | DX: J96.01 Acute respiratory failure with hypoxia (principal); I50.31 Acute diastolic (congestive) heart failure; N17.9 Acute kidney failure, unspecified; N18.32 Chronic kidney disease, stage 3b | CPT/HCPCS: 99223; 99239; 99499 ==

== ENCOUNTER 2024-06-10 11:27 | Outpatient (REF) | payer OTHER, SELFPAY ==
[2024-06-10 12:42] LABS: Anion Gap 15 (12-20); Blood Urea Nitrogen 31 mg/dL (9-16); Carbon Dioxide 24 mmol/L (22-29); Chloride 104 mmol/L (96-108); Estimated Glomerular Filt Rate 44; Glucose Random 178 mg/dL (60-115); Potassium 3.4 mmol/L (3.3-5.1); Sodium 140 mmol/L (135-145)
== END 2024-06-10 11:28 | disposition home or self-care (01) ==
LOC: HO.LAB 11:27
PROVIDERS: PCP Internal Medicine; Visit Provider Physician Assistant Medical
DX: N28.9 Disorder of kidney and ureter, unspecified (principal)
CPT/HCPCS: 36415; 80048

== ENCOUNTER 2024-06-11 01:56 | Inpatient (IN) | payer OTHER, SELFPAY ==
[2024-06-11] VITALS (8 sets, daily range): BP systolic 127–152; BP diastolic 61–77; PULSE 75–93; RESP 18–24; TEMP 36.2–37.1; O2SAT 88–98; BMI 25.1; BMI 25.2
--- NOTE | 2024-06-11 | ECG_ITS ---
Test Reason : SOB Blood Pressure : / mmHG Vent. Rate : 080 BPM Atrial Rate : 080 BPM P-R Int : 156 ms QRS Dur : 080 ms QT Int : 382 ms P-R-T Axes : 028 043 035 degrees QTc Int : 440 ms Normal sinus rhythm Normal ECG When compared with ECG of 08-JUN-2024 00:12, No significant change was found Referred By: Generic ED Physician Electronically Signed By:JESSICA LY
--- NOTE | ~2024-06-11 | XR_ITS ---
EXAMINATION: XR CHEST CLINICAL INFORMATION: Shortness of breath COMPARISON: 06/07/2024 TECHNIQUE: 2 views of the chest were obtained. FINDINGS: Heart and mediastinum within normal limits. Underlying hyperinflation. Increasing perihilar markings and increasing left midlung and lower lobe atelectasis. Developing left lower lobe consolidation not excluded. Bones are demineralized. XR/XR chest 2V IMPRESSION: Worsening left midlung atelectasis and interval development of increased perihilar markings, possibly viral pneumonia and/or bronchial wall thickening. Mild central vascular congestion and left lower lobe developing pneumonia not excluded. Underlying hyperinflation. Short-term radiographic follow-up recommended.
--- NOTE | ~2024-06-11 | XR_ITS ---
EXAMINATION: XR CHEST CLINICAL INFORMATION: Worsening hypoxia COMPARISON: 06/11/2024 TECHNIQUE: Frontal view of the chest was obtained. FINDINGS: Again noted are several linear, streaky opacities in each lung, slightly worsened right perihilar region compared to 06/11/2024. Mild interstitial prominence could reflect presence of edema along the peribronchovascular interstitium. No pneumothorax. Trace bilateral pleural effusions observed on the recent chest CT are not clearly seen on this anteroposterior radiograph. Cardiac silhouette is normal in size. The visualized bones are intact. XR/XR chest 1V IMPRESSION: * There is likely persistent mild diffuse edema of the peribronchovascular interstitium. * There are several scattered streaky linear opacities from atelectasis or infiltrates in each lung.
--- NOTE | ~2024-06-11 | CT_ITS ---
EXAMINATION: CT CHEST WITHOUT CONTRAST CLINICAL INFORMATION: Abnormal chest radiograph, shortness of breath and hypoxia COMPARISON: 06/03/2024 CT, chest radiograph from earlier in the day TECHNIQUE: Multidetector volumetric CT imaging of the chest was done. Axial MIP volume rendering provided. Sagittal and coronal reformatted images were obtained. This CT examination was performed using dose optimization techniques as appropriate, variously including the following: *Automated exposure control *Adjustment of mA and/or kV according to patient size (this includes techniques or standardized protocols for targeted exams where dose is matched to indication/reason for exam; i.e. extremities or head) *Use of iterative reconstruction technique DLP: 188 mGy-cm FINDINGS: [employer]: Increased perihilar markings and left midlung atelectasis. LUNGS: Trachea and bronchi are patent. Diffuse bronchial wall thickening. Bilateral increased perihilar markings. Bilateral atelectasis, most prominent in the lingula left upper and right lower lobes. No consolidations or groundglass opacities. MEDIASTINUM: Unremarkable thyroid. Multiple enlarged mediastinal lymph nodes, largest in the right paratracheal region measuring 1.7 cm, in the prevascular region, 1.7 cm, 1.4 cm in the pretracheal region. [place] of lymph nodes in the subcarinal region measuring 1.7 cm in short axis. Slightly thickened esophagus. Nonenlarged heart. No pericardial effusion. CORONARY ARTERY CALCIFICATION: None visualized on this study. PLEURA: Small bilateral pleural effusions. No pleural mass or thickening. AXILLA: Nonspecific axillary lymph nodes. No pathologic lymphadenopathy. UPPER ABDOMEN: Prominent low density liver. Decompressed gallbladder. Trace fluid around the spleen. Nonspecific perinephric stranding. Adrenal hypertrophy bilaterally. OSSEOUS STRUCTURES: No suspicious osseous lesions. CT/CT chest wo IV con IMPRESSION: Bilateral peribronchial increased markings and bronchial wall thickening. Bilateral atelectasis. No consolidations or air bronchograms. Bilateral small pleural effusions. Mediastinal lymphadenopathy. Fleischner guidelines were followed.
--- NOTE | ~2024-06-11 | US_ITS ---
EXAMINATION: US VENOUS ULTRASOUND WITH DOPPLER LOWER EXTREMITY, BILATERAL CLINICAL INFORMATION: Elevated D-dimer. Hypoxia. COMPARISON: 04/17/2023 TECHNIQUE: Ultrasound of the deep veins is performed from the hip to the calf with compression sonography and color and pulse Doppler assessment. Spectral analysis with color-flow imaging is performed. FINDINGS: FINDINGS: The common femoral vein is compressible and exhibits a normal phasic waveform, bilaterally; this suggests that the iliac veins are widely patent above. Within each proximal thigh, the visualized profunda femoris vein is patent. The visualized greater saphenous veins and saphenofemoral junctions are normal. Superficial femoral vein is patent in the proximal, mid and distal aspect of each thigh. Popliteal veins are normal to the level of the trifurcation, bilaterally, and the visualized posterior tibial and peroneal veins are patent. No evidence of Salinas's cyst. There is edema of subcutaneous tissues of each lower extremity. US/US venous duplex LE IMPRESSION: * No evidence of deep vein thrombosis in either lower extremity. * There is edema of the subcutaneous tissues of the lower extremities.
--- NOTE | ~2024-06-11 | NM_ITS ---
EXAMINATION: NM LUNG PERFUSION ONLY STUDY CLINICAL INDICATION: Elevated d-dimer. Increased shortness of breath despite diuresing. TECHNIQUE: Following the intravenous administration of 4.5 millicuries of technetium 99m MAA, images of the chest were obtained in multiple projections using a gamma camera. The radiotracer was injected through left antecubital vein without complications. COMPARISON: Chest radiograph 06/15/2024. FINDINGS: There is homogeneous distribution of tracer activity throughout both lungs. No segmental perfusion defects are identified. Cardiac and hilar attenuation are noted. Correlation is made to chest radiograph dated 06/15/2024 which demonstrates linear streaky opacities in both lungs and mild bilateral interstitial prominence. NM/TX pul perfusion IMPRESSION: Based on perfusion only modified PIOPED 2 criteria, the study is classified as very low probability for pulmonary thromboembolism.
[2024-06-11 02:32] LABS: Basophils Absolute Auto 0.1 X10*3/uL (0.0-0.2); Basophils Percent Auto 0.4 % (0-2); Eosinophils Absolute Auto 0.2 X10*3/uL (0.0-0.4); Eosinophils Percent Auto 1.2 % (0-4); Hematocrit 28.2 % (42.0-52.0); Hemoglobin 9.4 g/dl (14.0-18.0); Imm Gran Abs Auto 0.07 X10*3/uL (0.00-0.03); Imm Gran Pct Auto 0.6 % (0.0-0.4); Lymphocytes Absolute Auto 1.7 X10*3/uL (1.2-4.9); Lymphocytes Percent Auto 13.3 % (20-40); MANUAL DIFF FLAG SCAN; Mean Corpuscular HGB Conc 33.3 g/dl (31.0-36.0); Mean Corpuscular Hemoglobin 25.3 pg (27.0-33.0); Mean Corpuscular Volume 75.8 fL (80.0-98.0); Mean Platelet Volume 10.3 fL (9.4-12.4); Monocytes Absolute Auto 1.5 X10*3/uL (0.1-1.2); Neutrophils Absolute Auto 9.2 x10*3/uL (2.0-8.3); Neutrophils Percent Auto 72.5 % (45-73); Platelet Count 240 X10*3/uL (160-400); Red Blood Count 3.72 X10*6/uL (4.60-5.80); Red Cell Distribution Width 20.7 % (11.0-16.0); SCAN SMEAR FLAG 1; White Blood Count 12.6 X10*3/uL (4.8-10.8)
[2024-06-11 02:50] LABS: SLIDE REVIEW VERIFIED
[2024-06-11 02:53] LABS: Alanine Aminotransferase 17 U/L (0-40); Albumin Level 3.4 g/dL (3.5-5.0); Alkaline Phosphatase 87 U/L (39-117); Anion Gap 14 (12-20); Aspartate Amino Transferase 17 U/L (5-37); Bilirubin Total 0.2 mg/dL (0.0-1.0); Blood Urea Nitrogen 40 mg/dL (9-16); Calcium 8.6 mg/dL (8.4-10.2); Carbon Dioxide 25 mmol/L (22-29); Chloride 103 mmol/L (96-108); Creatinine Clr Calc Pharmacy 30.1; Estimated Glomerular Filt Rate 27; Glucose Random 212 mg/dL (60-115); Potassium 3.5 mmol/L (3.3-5.1); Sodium 138 mmol/L (135-145); Total Protein 6.2 g/dL (6.5-8.0)
[2024-06-11 02:59] LABS: B Type Natriuretic Peptide 138 pg/mL (<100)
--- NOTE | 2024-06-11 04:07 | PC.NURSE ---
pt ambulated to the bathroom with an even and steady gait
[2024-06-11 05:50] LABS: Appearance Urine Clear; Color Urine Yellow; Glucose Urine UA Negative (Negative); Leukocyte Esterase Urine Negative (Negative); Nitrite Urine Negative (Negative); PH 5.5 (5.0-9.0); UMIC TRIGGER UACC YES; Urine Blood Negative (Negative); Urine Ketones Negative (Negative); Urine Protein 30 (1+) mg/dL (Neg-Trace)
[2024-06-11 06:03] LABS: Bacteria Urine None Seen (None Seen); Hyaline Casts Urine 0-2 /LPF (0-2); RBC Urine 0-2 /HPF (0-2); Squamous Epithelial Cell Urine 0-2 /HPF (0-2); WBC Urine 0-5 /HPF (0-5)
--- NOTE | 2024-06-11 08:12 | ED_ITS ---
HPI - SOB/Dyspnea General Chief Complaint: Dyspnea Stated Complaint: sob chf Time Seen by Provider: 06/11/24 08:07 Source: patient and EMS Mode of arrival: EMS Limitations: no limitations History of Present Illness ED Provider: DR. Powell HPI Narrative: 48-year-old male with pertinent history DM insulin-dependent, HTN, mood disorder, COPD use 2-3 L of oxygen PRN usually his oxygenation runs 93-95%, CHF. Was in the hospital for congestive heart failure exacerbation and was discharged 2 days ago on Lasix. The patient confirms compliance with his medication, returned today for increased shortness of breath and found to be tachypneic and hypoxic, patient was placed on 3 L of oxygen, patient is also complaining of increased swelling bilateral ankle,+ PND. No chest pain Patient quit drinking alcohol recently after had a complicated alcohol use history require multiple admission and management of severe esophagitis and chest pain. Related Data Home Medications ?Medication ?Instructions ?Recorded ?Confirmed escitalopram oxalate 10 mg tablet 10 mg PO DAILY 08/01/22 06/08/24 trazodone 50 mg tablet 100 mg PO BEDTIME 08/01/22 06/08/24 aspirin 81 mg tablet,delayed 81 mg PO DAILY 10/06/22 06/08/24 release atorvastatin 40 mg tablet 40 mg PO DAILY 10/06/22 06/08/24 gabapentin 300 mg capsule 300 mg PO TID 10/06/22 06/08/24 metoprolol succinate 100 mg 100 mg PO DAILY 10/06/22 06/08/24 tablet,extended release 24 hr furosemide 40 mg tablet 80 mg PO DAILY 06/26/23 06/08/24 insulin glargine 100 unit/mL (3 6 unit subcut BEDTIME PRN 06/26/23 06/08/24 mL) subcutaneous pen (Lantus Hyperglycemia Solostar U-100 Insulin) furosemide 40 mg tablet 40 mg PO BEDTIME 11/24/23 06/08/24 fluticasone 250 mcg-salmeterol 50 1 ea inhalation BID 12/22/23 06/08/24 mcg/dose blistr powdr for inhalation (Advair Diskus) albuterol sulfate 90 mcg/actuation 2 puff inhalation Q4H PRN 04/26/24 06/08/24 aerosol inhaler bronchospasm insulin lispro 100 unit/mL 1 sliding scale dose subcut TIDAC 04/26/24 06/08/24 subcutaneous solution amlodipine 5 mg tablet 10 mg PO DAILY 06/02/24 06/08/24 diclofenac sodium 1 % topical gel 1 g topical QID PRN Pain 06/02/24 06/08/24 Previous Rx's ?Medication ?Instructions ?Recorded magnesium oxide 400 mg (241.3 mg 400 mg PO BIDPC #60 tabs 08/20/22 magnesium) tablet sucralfate 1 gram tablet 1 g PO QIDACHS #120 tabs 09/10/22 hydralazine 100 mg tablet 100 mg PO TID 30 days #90 tabs 05/09/23 fluconazole 100 mg tablet 100 mg PO DAILY 11 days #11 tabs 06/06/24 pantoprazole 40 mg tablet,delayed 40 mg PO BID 60 days #120 tabs 06/06/24 release nicotine 14 mg/24 hr daily 1 patch transdermal Q24H #28 ea 06/09/24 transdermal patch (Nicoderm CQ) Allergies Allergy/AdvReac Type Severity Reaction Status Date / Time dulaglutide [From [facility]] Allergy Unknown Verified 06/11/24 02:20 metformin [METFORMIN] AdvReac Mild DIARRHEA, Verified 06/11/24 02:20 nausea and vomiting Review of Systems 2 Review of Systems: All other systems are reviewed and are negative Constitutional: Reports as per HPI and Reports no additional constitutional complaints Eyes: Reports as per HPI and Reports no additional eye complaints Reports system reviewed and no additional complaints, except as documented Cardiovascular: Reports as per HPI and Reports no additional cardiovascular complaints Respiratory: Reports as per HPI and Reports no additional respiratory complaints Gastrointestinal: Reports as per HPI and Reports no additional gastrointestinal complaints Genitourinary: Reports no additional female genitourinary complaints Musculoskeletal: Reports no additional musculoskeletal complaints Skin/Breast: Reports system reviewed and no additional complaints, except as docu Psychiatric: Reports no additional psychiatric complaints Endocrine: Reports no additional endocrine complaints Hematologic/Lymphatic: Reports no additional hematologic/lymphatic complaints Allergic/Immunologic: Reports no additional allergic/immunologic complaints Reports system reviewed and no additional complaints, except as documented and Reports Abnormal speech present [facility] Past Medical History Medical History KELVIN (acute kidney injury) Hypertension Chronic heart failure with preserved ejection fraction (HFpEF) Acute respiratory failure with hypoxia Congestive heart failure CKD (chronic kidney disease) stage 1, GFR 90 ml/min or greater Depression COPD exacerbation YARELIS (obstructive sleep apnea) CHF exacerbation Hypoxia Acute respiratory failure Uncontrolled hypertension Acute on chronic diastolic (congestive) heart failure Acute on chronic anemia Hyperglycemia due to type 2 diabetes mellitus YARELIS (obstructive sleep apnea) Congestive heart failure Anxiety HLD (hyperlipidemia) Diabetes Hypercholesteremia HTN (hypertension) Asthma PAD (peripheral artery disease) Surgical History History of esophagogastroduodenoscopy S/P angiogram of extremity Family History Family History Father Alzheimer disease CAD (coronary artery disease) Social History Social History Household Members: Family Household Members Other:: 3 Housing: Apartment Do you presently have visiting nurse or other home services: No Unable to assess alcohol history related to: Unknown Alcohol intake: former Comment: low fall risk Patient Tobacco Use Status: Current everyday Tobacco user Tobacco use type: Cigarette Cigarettes Per Day: 5 Years Smoked: >30 Smoked in Last 30 Days: Yes e-Cigarette/Vaping Use: Never Used Second Hand Smoke Exposure: Yes Use of substances other than those prescribed or required for medical reasons: No Substance Use Type: Former Substance User Advance Directives: Yes Advance Directives on File: Yes Advance Directives Date on File: 06/21/21 Do you have a plan to hurt others: No Plan service: No Current occupational status: disabled Physical Exam 2 Vital Signs: Vital Signs: Last Vital Signs Temp 98.3 F 06/11/24 08:04 Pulse 81 06/11/24 08:04 Resp 18 06/11/24 08:04 BP 152/70 H 06/11/24 08:04 Pulse Ox 91 L 06/11/24 08:04 O2 Del Method Nasal Cannula 06/11/24 08:04 O2 Flow Rate 3 06/11/24 08:04 Oxygen Flow Rate 2 06/11/24 02:16 BMI result Body Mass Index 25.1 Vital signs have been reviewed and appear to be correct. Blood pressure elevated. Heart rate normal. Respiratory rate normal. Temperature normal. Oxygen saturation normal. Appearance: Alert. Oriented X3. No acute distress. Head: Normal external exam. Normocephalic. Atraumatic. No Thao signs noted. No raccoon eyes noted Eyes: PERRLA. EOMI. Conjunctiva and sclera normal. Eyelids normal. ENT: TM's Normal. Pharynx normal. Uvula midline. Moist mucous membranes. No trismus noted. No drooling noted. No muffled voice noted. Neck: Normal inspection. Neck supple. FROM. No adenopathy. Thyroid Normal. No meningeal signs. No neck mass noted. CVS: Normal heart rate and rhythm. Heart sound normal. No murmurs noted. Pulses normal throughout. Respiratory: No respiratory distress. Painless inspiration. Breath sounds normal. No wheezes/rales/rhonchi noted. Chest nontender. No accessory muscle usage noted or decreased air movement noted. Abdomen: Soft and nontender. Bowel sounds normal in all 4 quadrants. No distention noted. No organomegaly noted. No visible injury noted. Back: No CVA tenderness. Full range of motion noted. Skin: Skin warm and dry. Normal skin color. Normal skin turgor. No rashes/lesions/lacerations noted. Extremities: +2 lower extremity edema. Extremities exhibit normal range of motion. Extremities nontender. Neuro: Oriented X 3. Cranial nerve exam: II-XII are grossly intact No motor deficit. No sensory deficit. Reflexes normal. Course Reevaluation(s) Reevaluation #1: 48-year-old male recently admitted to the hospital for CHF exacerbation came back for shortness of breath and found to be below his normal O2 sat, improved with 3 L of oxygen nasal cannula, was given Lasix, and nitro. Labs reveals acute on chronic kidney injury. Healthcare acquired pneumonia no severe sepsis or septic shock (chronic BUN/creatinine abnormality) will start on Zosyn/doxycycline. Fluid restriction due to CHF. Will admit. Time: 10:00 Medications Administered Discontinued Medications Generic Name Dose Route Start Last Admin Trade Name Freq PRN Reason Stop Dose Admin Furosemide 40 mg 06/11/24 08:08 06/11/24 08:29 Furosemide 40 Mg/4 Ml Vial IVPUSH 06/11/24 08:09 40 mg ONCE ONE Administration Protocol Piperacillin Sod/Tazobactam 50 mls @ 100 mls/hr 06/11/24 09:03 06/11/24 09:30 Sod 3.375 gm/ Sodium Chloride IV 06/11/24 09:32 100 mls/hr ONCE ONE Administration Nitroglycerin 0.5 inch 06/11/24 08:08 06/11/24 08:25 Nitroglycerin 2 % Oint 1 Gm Packet TRANSDERMA 06/11/24 08:09 0.5 inch ONCE ONE Administration Medical Decision Making Differential Diagnosis Differential Diagnoses: The differential diagnosis associated with the presentation includes (CHF exacerbation, pneumonia, pneumothorax, pleural effusion, hypoxia, acute on chronic renal injury, electrolyte derangement, severe anemia, ACS.) Admission/Observation Consideration of admission/observation: Escalation of care including admission/observation considered Consult Healthcare Provider Management of the patient was discussed with: Hospitalist (Dr. Booth) Lab Data MDM Lab Attestation statement: I reviewed the patient's lab results. 06/11/24 02:27 06/11/24 02:27 Labs: Lab Results 06/11/24 06/11/24 06/11/24 Range/Units 02:27 05:44 08:25 WBC 12.6 H (4.8-10.8) X10*3/uL RBC 3.72 L (4.60-5.80) X10*6/uL Hgb 9.4 L (14.0-18.0) g/dl Hct 28.2 L (42.0-52.0) % MCV 75.8 L (80.0-98.0) fL MCH 25.3 L (27.0-33.0) pg MCHC 33.3 (31.0-36.0) g/dl RDW 20.7 H (11.0-16.0) % Plt Count 240 (160-400) X10*3/uL MPV 10.3 (9.4-12.4) fL Immature Gran % (Auto) 0.6 H (0.0-0.4) % Neut % (Auto) 72.5 (45-73) % Lymph % (Auto) 13.3 L (20-40) % Graves % (Auto) 12.0 H (2-11) % Eos % (Auto) 1.2 (0-4) % Baso % (Auto) 0.4 (0-2) % Lymph # (Auto) 1.7 (1.2-4.9) X10*3/uL Graves # (Auto) 1.5 H (0.1-1.2) X10*3/uL Eos # (Auto) 0.2 (0.0-0.4) X10*3/uL Baso # (Auto) 0.1 (0.0-0.2) X10*3/uL Abs Immat Gran (auto) 0.07 H (0.00-0.03) X10*3/uL Absolute Neuts (auto) 9.2 H (2.0-8.3) x10*3/uL Absolute Nucleated RBC 0.000 (0.0-0.012) X10*3/uL Nucleated RBC % (auto) 0.0 (0.0-0.2) /100WBC Smear Tech's Comments VERIFIED Sodium 138 (135-145) mmol/L Potassium 3.5 (3.3-5.1) mmol/L Chloride 103 (96-108) mmol/L Carbon Dioxide 25 (22-29) mmol/L Anion Gap 14 (12-20) BUN 40 H (9-16) mg/dL Creatinine 2.58 H (0.5-1.4) mg/dL Estim Creat Clear Calc 30.1 Estimated GFR 27 Random Glucose 212 H (60-115) mg/dL Calcium 8.6 (8.4-10.2) mg/dL Total Bilirubin 0.2 (0.0-1.0) mg/dL AST 17 (5-37) U/L ALT 17 (0-40) U/L Alkaline Phosphatase 87 (39-117) U/L B-Natriuretic Peptide 138 H (<100) pg/mL Total Protein 6.2 L (6.5-8.0) g/dL Albumin 3.4 L (3.5-5.0) g/dL Urine Color Yellow Urine Appearance Clear Urine pH 5.5 (5.0-9.0) Ur Specific [place] 1.010 (1.005-1.025) Urine Protein 30 (1+) H (Neg-Trace) mg/dL Urine Glucose (UA) Negative (Negative) mg/dL Urine Ketones Negative (Negative) mg/dL Urine Blood Negative (Negative) Urine Nitrite Negative (Negative) Ur Leukocyte Esterase Negative (Negative) Urine RBC 0-2 (0-2) /HPF Urine WBC 0-5 (0-5) /HPF Ur Squamous Epith Cells 0-2 (0-2) /HPF Urine Bacteria None Seen (None Seen) Hyaline Casts 0-2 (0-2) /LPF Influenza Type A (PCR) NEGATIVE (Negative) Influenza Type B (PCR) NEGATIVE (Negative) RSV RNA Qual (PCR) NEGATIVE (Negative) SARS-CoV-2 RNA (RT-PCR) NEGATIVE (Negative) Independent Interpretation I performed an independent interpretation of an: EKG (Normal sinus rhythm at 80 bpm., normal intervals, normal axis deviation, no ST-T ischemic changes, no change from previous EKG.) and Plain X-Ray (Chest:Worsening left midlung atelectasis and interval development of increased perihilar markings, possibly viral pneumonia and/or bronchial wall thickening. Mild central vascular congestion and left lower lobe developing pneumonia not excluded. Underlying hyperinflation. Short-term radiographic fol) Radiology Impression Discussion of test interpretation with radiology: I have reviewed the radiologist's reading. Chronic Conditions Patient?s care impacted by: Diabetes, Hypertension and Other (CHF, CKD) Discharge Plan Discharge Clinical Impression: Congestive heart failure, Acute kidney injury superimposed on CKD, Pneumonia Patient Disposition: Admitted As Inpatient Print Language: Iranian
[2024-06-11] MEDS: Nitroglycerin 2 % Oint 1 GM Packet 0.5 INCH TRANSDERMA (08:25)
[2024-06-11] MEDS: Furosemide 40 MG/4 ML VIAL IVPUSH ×2 (08:29→17:29)
[2024-06-11 09:10] LABS: Influenza A PCR NEGATIVE (Negative); Influenza B PCR NEGATIVE (Negative); Resp Syncy Virus RNA Qual PCR NEGATIVE (Negative); SARS COV2 PCR INHOUSE NEGATIVE (Negative)
[2024-06-11] MEDS: Piperacillin Sodium/Tazobactam 3.375 GM in 0.9 % Sodium Chloride 50 ML IV (09:30)
[2024-06-11] MEDS: Doxycycline Hyclate 100 MG in 0.9 % Sodium Chloride 250 ML 166.67 MG IV (10:18)
[2024-06-11 10:25] LABS: Lactic Acid 1.3 mmol/L (0.5-2.0)
--- NOTE | 2024-06-11 12:35 | PHA.MEDREC ---
Addendum entered by Misha Parmar oh 06/11/24 13:05: med rec reviewed. Pt uses lantus as back up for insulin pump Original Note: Pharmacy Consult ? Medication Reconciliation Pharmacy has completed the medication reconciliation. Confirmed medications with patient and discharge packet from 06/09/2024. Patient confirmed no changes from few days ago.
--- NOTE | 2024-06-11 12:55 | P.HPHOSP_ITS ---
<Statement entered by Suzi Wilcox MD - 07/03/24 07:16> the patient was seen and evaluated with SACHI Lees. I agree with her note, assessment and plan with the following. In summary, 48-year-old male with pertinent history of insulin-dependent diabetes mellitus, hypertension, mood disorder, COPD on prn 2-3L O2, alcohol use disorder, congestive heart failure preserved EF who was discharged 2 days ago from our facility due to CHF exacerbation admitted for acute CHF exacerbation. #Acute CHF exacerbation with acute hypoxemic respiratory failure IV lasix, I\O and wean O2 down as tolerated #Acute kidney injury could be 2/2 cardio-renal syndrome. Cr 2.6 , r\o obstruction follow KFT Rest of evaluations by SACHI note. History of Present Illness Date of Service: 06/11/24 Attending physician on admission: Suzi Wilcox Chief Complaint: sob 48-year-old male with pertinent history of insulin-dependent diabetes mellitus, hypertension, mood disorder, COPD on prn 2-3L O2, alcohol use disorder, congestive heart failure preserved EF who was discharged 2 days ago from our facility due to CHF exacerbation, presented to the ED earlier today for evaluation of dyspnea. He reports last night developed significant dyspnea both at rest and with exertion, orthopnea and PND as well has increase in ble edema. Double his dose of lasix with limited improvement. No fevers, chills, abd pain, n/v/d, dysuria, hematuria, frequency, cough, lightheadedness, chest pain. No one sick at home. Since arival, intermittently tachypneic with O2 sat 91% on 2L. There is a leukocytosis of 12.6, stable microcytic anemia. Creat 2.58, baseline around 1.0, BUN 40, lytes wnl. Lactic acid 1.3. BNP 138. Urinalysis unremarkable except for 1+ protein. Negative for COVID-19, flu, RSV. Chest x- ray shows worsening left midlung atelectasis and interval development of increased perihilar markings possibly viral pneumonia and/or bronchial wall thickening. Mild vascular congestion and left lower lobe developing pneumonia not excluded. EKG shows NSR, rate 80 without any acute ischemic changes. In the ED, has been given 40 mg IV Lasix. 0.5 in nitroglycerin, vancomycin and Zosyn. Review of Systems 2 Review of Systems: Yes all other systems are reviewed and are negative [facility] Medical History KELVIN (acute kidney injury) Hypertension Chronic heart failure with preserved ejection fraction (HFpEF) Acute respiratory failure with hypoxia Congestive heart failure CKD (chronic kidney disease) stage 1, GFR 90 ml/min or greater Depression COPD exacerbation YARELIS (obstructive sleep apnea) CHF exacerbation Hypoxia Acute respiratory failure Uncontrolled hypertension Acute on chronic diastolic (congestive) heart failure Acute on chronic anemia Hyperglycemia due to type 2 diabetes mellitus YARELIS (obstructive sleep apnea) Congestive heart failure Anxiety HLD (hyperlipidemia) Diabetes Hypercholesteremia HTN (hypertension) Asthma PAD (peripheral artery disease) Family History Father Alzheimer disease CAD (coronary artery disease) Surgical History History of esophagogastroduodenoscopy S/P angiogram of extremity Social History Household Members: Family Household Members Other:: brother Housing: Apartment Do you presently have visiting nurse or other home services: Yes ([facility] for housing help and meals) Unable to assess alcohol history related to: Unknown Alcohol intake: former Comment: pt is independent in room Patient Tobacco Use Status: Current everyday Tobacco user Tobacco use type: Cigarette Cigarettes Per Day: 5 Years Smoked: 33 e-Cigarette/Vaping Use: Never Used Second Hand Smoke Exposure: Yes (brother smokes in home) Substance Use Type: Marijuana Advance Directives Date on File: 06/21/21 service: No Current occupational status: disabled Meds Allergies Allergy/AdvReac Type Severity Reaction Status Date / Time dulaglutide [From Trulicity] Allergy Unknown Verified 06/21/24 19:27 metformin [METFORMIN] AdvReac Mild DIARRHEA, Verified 06/21/24 19:27 nausea and vomiting Home Medications ?Medication ?Instructions ?Recorded ?Confirmed ?Last Taken ?Type escitalopram oxalate 10 mg tablet 10 mg PO DAILY 08/01/22 06/22/24 06/10/24 History trazodone 50 mg tablet 100 mg PO BEDTIME 08/01/22 06/22/2424 History aspirin 81 mg tablet,delayed 81 mg PO DAILY 10/06/22 06/22/24 06/10/24 History release atorvastatin 40 mg tablet 40 mg PO DAILY 10/06/22 06/22/24 06/10/24 History gabapentin 300 mg capsule 300 mg PO TID 10/06/22 06/22/24 06/10/24 History metoprolol succinate 100 mg 100 mg PO DAILY 10/06/22 06/22/24 06/10/24 History tablet,extended release 24 hr furosemide 40 mg tablet 80 mg PO DAILY 06/26/23 06/22/24 06/10/24 History furosemide 40 mg tablet 40 mg PO BEDTIME 11/24/23 06/22/24 06/10/24 History fluticasone 250 mcg-salmeterol 50 1 ea inhalation BID 12/22/23 06/22/24 06/10/24 History mcg/dose blistr powdr for inhalation (Advair Diskus) albuterol sulfate 90 mcg/actuation 2 puff inhalation Q4H PRN 04/26/24 06/22/24 Unknown History aerosol inhaler bronchospasm insulin lispro 100 unit/mL 1 sliding scale dose subcut TIDAC 04/26/24 06/22/24 06/10/24 History subcutaneous solution amlodipine 5 mg tablet 10 mg PO DAILY 06/02/24 06/22/24 06/10/24 History diclofenac sodium 1 % topical gel 1 g topical QID PRN Pain 06/02/24 06/22/24 Unknown History insulin pump cartridge,automated 06/11/24 06/11/24 Unknown History dose,BT with controller subcutaneous (Omnipod 5 G6 Intro Kit (Gen 5) subcutaneous cartridge with controller) Physical Exam 2 Vital Signs and Narrative: Vital Signs: Last Vital Signs Temp 98.3 F 06/11/24 08:04 Pulse 81 06/11/24 08:04 Resp 18 06/11/24 08:04 BP 152/70 H 06/11/24 08:04 Pulse Ox 91 L 06/11/24 08:04 O2 Del Method Nasal Cannula 06/11/24 08:04 O2 Flow Rate 3 06/11/24 08:04 Oxygen Flow Rate 2 06/11/24 02:16 BMI result Body Mass Index 25.1 Constitutional - Awake and Alert, No apparent distress Eyes - PERRLA, EOMI Cardiovascular - S1S2, RRR, 3+ edema Respiratory - Normal lung expansion, Normal respiratory effort, No respiratory distress, diminished bases bilaterally Gastrointestinal - NT / ND; +BS; No rebound or guarding Extremities - no calf tenderness bilaterally, no swelling Skin - Warm/Dry Neurological - Alert & oriented x3 Psychological - Appropriate affect Results Labs 06/16/24 06:58 06/19/24 06:25 Labs: Laboratory Results - last 24 hr 06/11/24 06/11/24 06/11/24 02:27 05:44 08:25 MCV 75.8 L MCH 25.3 L MCHC 33.3 RDW 20.7 H Plt Count 240 MPV 10.3 Immature Gran % (Auto) 0.6 H Neut % (Auto) 72.5 Lymph % (Auto) 13.3 L [place] % (Auto) 12.0 H Eos % (Auto) 1.2 Baso % (Auto) 0.4 Lymph # (Auto) 1.7 [place] # (Auto) 1.5 H Eos # (Auto) 0.2 Baso # (Auto) 0.1 Abs Immat Gran (auto) 0.07 H Absolute Neuts (auto) 9.2 H Absolute Nucleated RBC 0.000 Nucleated RBC % (auto) 0.0 Smear Tech's Comments VERIFIED Anion Gap 14 Estim Creat Clear Calc 30.1 Estimated GFR 27 Random Glucose 212 H Lactic Acid Calcium 8.6 Total Bilirubin 0.2 AST 17 ALT 17 Alkaline Phosphatase 87 B-Natriuretic Peptide 138 H Total Protein 6.2 L Albumin 3.4 L Urine Color Yellow Urine Appearance Clear Urine pH 5.5 Ur Specific [place] 1.010 Urine Protein 30 (1+) H Urine Glucose (UA) Negative Urine Ketones Negative Urine Blood Negative Urine Nitrite Negative Ur Leukocyte Esterase Negative Urine RBC 0-2 Urine WBC 0-5 Ur Squamous Epith Cells 0-2 Urine Bacteria None Seen Hyaline Casts 0-2 Influenza Type A (PCR) NEGATIVE Influenza Type B (PCR) NEGATIVE RSV RNA Qual (PCR) NEGATIVE SARS-CoV-2 RNA (RT-PCR) NEGATIVE 06/11/24 09:28 MCV MCH MCHC RDW Plt Count MPV Immature Gran % (Auto) Neut % (Auto) Lymph % (Auto) [place] % (Auto) Eos % (Auto) Baso % (Auto) Lymph # (Auto) [place] # (Auto) Eos # (Auto) Baso # (Auto) Abs Immat Gran (auto) Absolute Neuts (auto) Absolute Nucleated RBC Nucleated RBC % (auto) Smear Tech's Comments Anion Gap Estim Creat Clear Calc Estimated GFR Random Glucose Lactic Acid 1.3 Calcium Total Bilirubin AST ALT Alkaline Phosphatase B-Natriuretic Peptide Total Protein Albumin Urine Color Urine Appearance Urine pH Ur Specific [place] Urine Protein Urine Glucose (UA) Urine Ketones Urine Blood Urine Nitrite Ur Leukocyte Esterase Urine RBC Urine WBC Ur Squamous Epith Cells Urine Bacteria Hyaline Casts Influenza Type A (PCR) Influenza Type B (PCR) RSV RNA Qual (PCR) SARS-CoV-2 RNA (RT-PCR) Imaging Radiologist's Impressions: Impressions Chest X-Ray 06/11/24 08:15 IMPRESSION: Worsening left midlung atelectasis and interval development of increased perihilar markings, possibly viral pneumonia and/or bronchial wall thickening. Mild central vascular congestion and left lower lobe developing pneumonia not excluded. Underlying hyperinflation. Short-term radiographic follow-up recommended. Assessment and Plan (1) Acute kidney injury superimposed on CKD: Status: Acute (2) Acute exacerbation of chronic heart failure: Status: Acute Plan 48-year-old male with pertinent history of insulin-dependent diabetes mellitus, hypertension, mood disorder, COPD on prn 2-3L O2, alcohol use disorder, congestive heart failure preserved EF who was discharged 2 days ago from our facility due to CHF exacerbation admitted for acute CHF exacerbation. #Acute CHF exacerbation with acute hypoxemic respiratory failure -echo 06/08 shows normal LV sytolci function with grade II diastolic dysfunction -40mg IV lasix BID -cardiac diet -strict I&O -Ddaily weights -follow renal function/lytes -continue supplemental O2 to maintain oximetry 90-92% #Acute kidney injury -suspect cardiorenal syndrome -creatinine 2.58, baseline appears to be around 1 -urine studies pending -avoid nephrotoxins -cardiac diet as above -nephrology consult -follow renal function/lytes #?pneumonia on cxr -asymptomatic but does have mild leukocytosis, (tachynea due to volume overload- no sepsis) -ct chest pending, hold on further abx # COPD -no acute exacerbation -continue maintenance inhalers, albuterol p.r.n. # insulin-dependent type 2 diabetes -continue insulin pump on sliding scale -POC glucose, diabetic diet # hypertension -continue hydralazine, amlodipine, Lasix, metoprolol # GERD -PPI, Carafate # recent esophageal candidiasis -present on admission, continue fluconazole # nicotine dependence -patches for replacement therapy, cessation advised # alcohol use disorder -denies recent alcohol use however has had recent admissions with significant withdrawal -monitor on CIWA # chronic iron-deficiency anemia -H/H baseline, above transfusion threshold -add ferrous sulfate DVT prophylaxis-heparin Full code Patient requires inpatient stay at least 2 midnights for management of CHF exacerbation with acute hypoxemic respiratory failure requiring IV diuresis as well as close monitoring of renal function electrolyte levels with expert consultation Quality Stroke Does the patient have a stroke diagnosis?: No VTE Prior VTE?: No VTE Risk Level:: Medical - moderate - high VTE Device Contraindication: Treatment Not Indicated VTE Drug Contraindication: N/A - Med Ordered
[2024-06-11 13:38] LABS: Creatinine Urine 90.04 mg/dL; Sodium Urine Random < 20.0 mmol/L
[2024-06-11 15:41] LABS: Iron 23 mcg/dL (45-160); Percent Iron Saturation 8 % (15-50); Total Iron Binding Capacity 294 mcg/dL (228-428); Unsaturated Iron Binding 271 ug/dL
[2024-06-11 15:53] LABS: Glucose, Whole Blood 391 mg/dL (60-115)
[2024-06-11] MEDS: hydrALAZINE HCl 50 MG TABLET 100 MG PO ×2 (16:34→20:59)
[2024-06-11] MEDS: Gabapentin 300 MG CAPSULE PO ×2 (16:34→20:59)
[2024-06-11] MEDS: Sucralfate 1 GM TABLET PO ×2 (17:03→21:00)
[2024-06-11] MEDS: Insulin Lispro 100 UNIT/ML 3 ML VIAL SUBCUT ×2 (17:03→21:00)
[2024-06-11] MEDS: Magnesium Oxide 400 MG TABLET PO (17:04)
[2024-06-11] MEDS: Omeprazole 20 MG CAPSULE.DR PO (17:04)
[2024-06-11] MEDS: Heparin Sodium,Porcine 5,000 UNIT/ML VIAL 5000 UNIT SUBCUT (20:59)
[2024-06-11] MEDS: Insulin Glargine,Hum.rec.anlog 100 UNIT/ML 10 ML VIAL 10 UNIT SUBCUT (21:00)
[2024-06-11] MEDS: traZODone HCL 100 MG TABLET PO (21:00)
[2024-06-11] MEDS: 0.9 % Sodium Chloride Flush 3 ML SYRINGE IVFLUSH (21:01)
[2024-06-11 21:05] LABS: Glucose, Whole Blood 231 mg/dL (60-115)
[2024-06-11] MEDS: Fluticasone Propionate Nasal 16 GM SPRAY 2 SPRAY NOSTRIL-B (21:59)
[2024-06-11] MEDS: Albuterol Sulfate 90 MCG 8 GM INHALER 2 PUFF INHALE (21:59)
[2024-06-12] VITALS (11 sets, daily range): BP systolic 129–146; BP diastolic 56–71; PULSE 73–87; RESP 14–20; TEMP 36.6–37.4; O2SAT 90–94
[2024-06-12] MEDS: Furosemide 100 MG/10 ML VIAL 60 MG IVPUSH (02:14)
[2024-06-12] MEDS: Omeprazole 20 MG CAPSULE.DR PO ×2 (06:41→16:47)
[2024-06-12 06:43] LABS: MANUAL DIFF FLAG NO
[2024-06-12 06:53] LABS: Basophils Absolute Auto 0.1 X10*3/uL (0.0-0.2); Basophils Percent Auto 0.3 % (0-2); Eosinophils Absolute Auto 0.1 X10*3/uL (0.0-0.4); Eosinophils Percent Auto 0.9 % (0-4); Hematocrit 28.8 % (42.0-52.0); Hemoglobin 9.4 g/dl (14.0-18.0); Imm Gran Abs Auto 0.08 X10*3/uL (0.00-0.03); Imm Gran Pct Auto 0.6 % (0.0-0.4); Lymphocytes Absolute Auto 1.4 X10*3/uL (1.2-4.9); Lymphocytes Percent Auto 9.8 % (20-40); Mean Corpuscular HGB Conc 32.6 g/dl (31.0-36.0); Mean Corpuscular Volume 76.6 fL (80.0-98.0); Monocytes Absolute Auto 1.5 X10*3/uL (0.1-1.2); Monocytes Percent Auto 10.1 % (2-11); Neutrophils Absolute Auto 11.2 x10*3/uL (2.0-8.3); Neutrophils Percent Auto 78.3 % (45-73); Platelet Count 264 X10*3/uL (160-400); Red Blood Count 3.76 X10*6/uL (4.60-5.80); Red Cell Distribution Width 21.1 % (11.0-16.0); White Blood Count 14.4 X10*3/uL (4.8-10.8)
--- NOTE | 2024-06-12 06:57 | PC.NURSE ---
Patient is alert and oriented x4 speech is clear and patient follows all commands patient moves all extremities moderate strength. Patient is 2L n/c and at 88% PRN inhaler given oxygen increased with minimal effect. RN notified MD and IV lasix 60mg ordered and administered with good effect patient is sating 94-95% on 3 L n/c. +2 pitting edema to LE B/L. Patient is diaphoretic and CIWA scores done. Patient lung sounds are diminished abdomen is semi firm non tender. Patient is oob to the BR strict I &O done per order. Please see [facility] for more details.
[2024-06-12 07:13] LABS: Anion Gap 15 (12-20); Blood Urea Nitrogen 33 mg/dL (9-16); Calcium 9.1 mg/dL (8.4-10.2); Carbon Dioxide 24 mmol/L (22-29); Chloride 105 mmol/L (96-108); Creatinine Clr Calc Pharmacy 47.6; Estimated Glomerular Filt Rate 45; Glucose Random 175 mg/dL (60-115); Potassium 3.4 mmol/L (3.3-5.1); Sodium 141 mmol/L (135-145)
[2024-06-12 07:23] LABS: Glucose, Whole Blood 148 mg/dL (60-115)
[2024-06-12] MEDS: Fluticasone/Vilanterol 100/25 BLST.W.DEV 1 PUFF INHALE (07:30)
--- NOTE | 2024-06-12 08:11 | MHC.CM.PN ---
Patient was recently dc to home from [facility]. Patient lives in an apartment with his Brother and adult Daughter and he receives CPAP & home O2 from [facility]. Home/resume said services is the goal and CM has initiated and will follow for dc planning. PCP is Zari Varghese and HCP is Darrick/Danny.
[2024-06-12] MEDS: Atorvastatin Calcium 40 MG TABLET PO (08:39)
[2024-06-12] MEDS: Gabapentin 300 MG CAPSULE PO ×3 (08:39→21:44)
[2024-06-12] MEDS: Magnesium Oxide 400 MG TABLET PO ×2 (08:39→16:48)
[2024-06-12] MEDS: Ascorbic Acid 250 MG TABLET PO (08:39)
[2024-06-12] MEDS: Escitalopram Oxalate 10 MG TABLET PO (08:39)
[2024-06-12] MEDS: Ferrous Sulfate 324 MG TABLET.DR PO (08:39)
[2024-06-12] MEDS: Aspirin Enteric Coated 81 MG TABLET.DR PO (08:39)
[2024-06-12] MEDS: Sucralfate 1 GM TABLET PO ×4 (08:39→21:44)
[2024-06-12] MEDS: Metoprolol Succinate ER 100 MG TAB.ER.24H PO (08:40)
[2024-06-12] MEDS: Folic Acid 1 MG TABLET PO (08:40)
[2024-06-12] MEDS: Fluconazole 100 MG TABLET PO (08:40)
[2024-06-12] MEDS: hydrALAZINE HCl 50 MG TABLET 100 MG PO ×3 (08:40→21:44)
[2024-06-12] MEDS: amLODIPine Besylate 10 MG TABLET PO (08:40)
[2024-06-12] MEDS: Thiamine HCL 100 MG TABLET PO (08:40)
[2024-06-12] MEDS: Heparin Sodium,Porcine 5,000 UNIT/ML VIAL 5000 UNIT SUBCUT ×2 (08:41→21:45)
[2024-06-12] MEDS: Furosemide 40 MG/4 ML VIAL IVPUSH ×2 (08:41→18:14)
[2024-06-12] MEDS: Nicotine 14 MG PATCH.TD24 TRANSDERMA (08:41)
[2024-06-12] MEDS: 0.9 % Sodium Chloride Flush 3 ML SYRINGE IVFLUSH ×2 (08:41→16:48)
--- NOTE | 2024-06-12 09:32 | P.CONNP_ITS ---
History of Present Illness Reason for Consult Consult date: 06/12/24 Reason for consult: KELVIN Chief Complaint Chief complaint: CHF exacerbation hypoxia kelvin History of Present Illness Narrative: 48-year-old male with insulin-dependent diabetes mellitus, hypertension, COPD ,congestive heart failure preserved EF who was [place] [facility] [place], presented to the ER yesterday for evaluation of dyspnea. He reports last night developed significant dyspnea both at rest and with exertion, orthopnea and PND as well has increase in edema. No fevers, chills, abd pain, n/v/d, dysuria, hematuria, frequency, cough, lightheadedness, chest pain. On arrival,Creat 2.58, baseline around 1.0, BUN 40, lytes wnl. Lactic acid 1.3. BNP 138. Negative for COVID-19, flu, RSV. In the ER, he was given 40 mg IV Lasix. 0.5 in nitroglycerin, vancomycin and Zosyn and was admitted for further management. Nephrology has been consulted to assist in his clinical care during his current hospital stay Review of Systems Review of Systems Yes all other systems are reviewed and are negative [facility] Past Medical History Medical History KELVIN (acute kidney injury) Hypertension Chronic heart failure with preserved ejection fraction (HFpEF) Acute respiratory failure with hypoxia Congestive heart failure CKD (chronic kidney disease) stage 1, GFR 90 ml/min or greater Depression COPD exacerbation YARELIS (obstructive sleep apnea) CHF exacerbation Hypoxia Acute respiratory failure Uncontrolled hypertension Acute on chronic diastolic (congestive) heart failure Acute on chronic anemia Hyperglycemia due to type 2 diabetes mellitus YARELIS (obstructive sleep apnea) Congestive heart failure Anxiety HLD (hyperlipidemia) Diabetes Hypercholesteremia HTN (hypertension) Asthma PAD (peripheral artery disease) Family History Family History Father Alzheimer disease CAD (coronary artery disease) Surgical History Surgical History History of esophagogastroduodenoscopy S/P angiogram of extremity Social History Social History Household Members: Family Household Members Other:: 3 Housing: Apartment Do you presently have visiting nurse or other home services: Yes Unable to assess alcohol history related to: Unknown Alcohol intake: former Comment: low fall risk Patient Tobacco Use Status: Current everyday Tobacco user Tobacco use type: Cigarette Cigarettes Per Day: 5 Years Smoked: 33 Smoked in Last 30 Days: Yes e-Cigarette/Vaping Use: Never Used Second Hand Smoke Exposure: Yes Use of substances other than those prescribed or required for medical reasons: No Substance Use Type: Former Substance User Currently Displaying Signs/Symptoms of Drug Intoxication Withdrawal: No Have you been hit, kicked, punched, or otherwise hurt by someone within the past year? If so, by whom?: No Do you feel safe in your current relationship?: No Current Relationship Is there a partner from a previous relationship who is making you feel unsafe now?: No Are you made to feel afraid or neglected: No Advance Directives: Yes Advance Directives on File: Yes Advance Directives Date on File: 06/21/21 Do you have a plan to hurt others: No Plan Recently lost weight without trying: No Nutrition Risks: No Nutritional Risk service: No Current occupational status: disabled Meds Allergies Allergy/AdvReac Type Severity Reaction Status Date / Time [facility] Allergy Unknown Verified 06/11/24 02:20 metformin [METFORMIN] AdvReac Mild DIARRHEA, Verified 06/11/24 02:20 nausea and vomiting Active Medications: Current Medications Acetaminophen (Acetaminophen 325 Mg Tablet) 650 mg PO Q6H PRN PRN Reason: Pain, Mild (Pain Scale 1-3), fever or headache Albuterol Sulfate (Albuterol Sulfate 90 Mcg 8 Gm Inhaler) 2 puff INHALE Q4H PRN PRN Reason: bronchospasm Last Admin: 06/11/24 21:59 Dose: 2 puff Amlodipine Besylate (Amlodipine Besylate 10 Mg Tablet) 10 mg PO DAILY [facility]; Protocol Last Admin: 06/12/24 08:40 Dose: 10 mg Ascorbic Acid (Ascorbic Acid 250 Mg Tablet) 250 mg PO DAILY [facility] Last Admin: 06/12/24 08:39 Dose: 250 mg Aspirin (Aspirin Enteric Coated 81 Mg Tablet.Dr) 81 mg PO DAILY [facility] Last Admin: 06/12/24 08:39 Dose: 81 mg Atorvastatin Calcium (Atorvastatin Calcium 40 Mg Tablet) 40 mg PO DAILY [facility] Last Admin: 06/12/24 08:39 Dose: 40 mg Calcium Carbonate (Calcium Carbonate 750 Mg Tab.Chew) 750 mg PO Q4H PRN PRN Reason: Heartburn Escitalopram Oxalate (Escitalopram Oxalate 10 Mg Tablet) 10 mg PO DAILY [facility] Last Admin: 06/12/24 08:39 Dose: 10 mg Ferrous Sulfate (Ferrous Sulfate 324 Mg Tablet.Dr) 324 mg PO DAILY [facility] Last Admin: 06/12/24 08:39 Dose: 324 mg Fluconazole (Fluconazole 100 Mg Tablet) 100 mg PO DAILY [facility] Last Admin: 06/12/24 08:40 Dose: 100 mg Fluticasone/Vilanterol (Fluticasone/Vilanterol 100/25 Blst.W.Dev) 1 puff INHALE RDAILY [facility] Last Admin: 06/12/24 07:30 Dose: 1 puff Folic Acid (Folic Acid 1 Mg Tablet) 1 mg PO DAILY [facility] Last Admin: 06/12/24 08:40 Dose: 1 mg Furosemide (Furosemide 40 Mg/4 Ml Vial) 40 mg IVPUSH BID@0900,1800 [facility]; Protocol Last Admin: 06/12/24 08:41 Dose: 40 mg Gabapentin (Gabapentin 300 Mg Capsule) 300 mg PO TID [facility] Last Admin: 06/12/24 08:39 Dose: 300 mg Glucose (Glucose Gel 15 Gm Gel..Gram.) 15 gm PO Q15M PRN; Protocol PRN Reason: per Hypoglycemia Standing Ord. Heparin Sodium (Porcine) (Heparin Sodium,Porcine 5,000 Unit/Ml Vial) 5,000 unit SUBCUT BID [facility] Last Admin: 06/12/24 08:41 Dose: 5,000 unit Hydralazine HCl (Hydralazine Hcl 50 Mg Tablet) 100 mg PO TID [facility]; Protocol Last Admin: 06/12/24 08:40 Dose: 100 mg Dextrose (D10) 250 mls @ 750 mls/hr IV Q15M PRN; Protocol PRN Reason: per Hypoglycemia Standing Ord. Insulin Glargine (Insulin Glargine,Hum.Rec.Anlog 100 Unit/Ml 10 Ml Vial) 10 unit SUBCUT BEDTIME [facility] Last Admin: 06/11/24 21:00 Dose: 10 unit Insulin Human Lispro (Insulin Lispro 100 Unit/Ml 3 Ml Vial) 0 unit SUBCUT QIDACHS [facility]; Protocol Last Admin: 06/12/24 08:23 Dose: Not Given Insulin Pump (Subcutaneous Insulin Pump) 1 each SUBCUT QIDACHS [facility]; Protocol Last Admin: 06/12/24 08:24 Dose: Not Given Magnesium Hydroxide (Milk Of Magnesia 30 Ml Oral.Susp) 30 ml PO DAILY PRN PRN Reason: Constipation Magnesium Oxide (Magnesium Oxide 400 Mg Tablet) 400 mg PO BIDPC [facility] Last Admin: 06/12/24 08:39 Dose: 400 mg Melatonin (Melatonin 3 Mg Tablet) 6 mg PO BEDTIME PRN PRN Reason: Insomnia Metoprolol Succinate (Metoprolol Succinate Er 100 Mg Tab.Er.24h) 100 mg PO DAILY [facility]; Protocol Last Admin: 06/12/24 08:40 Dose: 100 mg Nicotine (Nicotine 14 Mg Patch.Td24) 14 mg TRANSDERMA DAILY [facility] Last Admin: 06/12/24 08:41 Dose: 14 mg Omeprazole (Omeprazole 20 Mg Capsule.Dr) 20 mg PO BID@0630,1630 [facility] Last Admin: 06/12/24 06:41 Dose: 20 mg Sodium Chloride (0.9 % Sodium Chloride Flush 3 Ml Syringe) [facility] Last Admin: 06/12/24 08:41 Dose: 3 ml Sucralfate (Sucralfate 1 Gm Tablet) [facility] Last Admin: 06/12/24 08:39 Dose: 1 gm Thiamine HCl (Thiamine Hcl 100 Mg Tablet) 100 mg PO DAILY [facility] Last Admin: 06/12/24 08:40 Dose: 100 mg Trazodone HCl (Trazodone Hcl 100 Mg Tablet) 100 mg PO BEDTIME [facility] Last Admin: 06/11/24 21:00 Dose: 100 mg Home Medications ?Medication ?Instructions ?Recorded ?Confirmed ?Last Taken ?Type escitalopram oxalate 10 mg tablet 10 mg PO DAILY 08/01/22 06/11/24 06/10/24 History trazodone 50 mg tablet 100 mg PO BEDTIME 08/01/22 06/11/24 06/10/24 History aspirin 81 mg tablet,delayed 81 mg PO DAILY 10/06/22 06/11/24 06/10/24 History release atorvastatin 40 mg tablet 40 mg PO DAILY 10/06/22 06/11/24 06/10/24 History gabapentin 300 mg capsule 300 mg PO TID 10/06/22 06/11/24 06/10/24 History metoprolol succinate 100 mg 100 mg PO DAILY 10/06/22 06/11/24 06/10/24 History tablet,extended release 24 hr furosemide 40 mg tablet 80 mg PO DAILY 06/26/23 06/11/24 06/10/24 History furosemide 40 mg tablet 40 mg PO BEDTIME 11/24/23 06/11/24 06/10/24 History fluticasone 250 mcg-salmeterol 50 1 ea inhalation BID 12/22/23 06/11/24 06/10/24 History mcg/dose blistr powdr for inhalation (Advair Diskus) albuterol sulfate 90 mcg/actuation 2 puff inhalation Q4H PRN 04/26/24 06/11/24 Unknown History aerosol inhaler bronchospasm insulin lispro 100 unit/mL 1 sliding scale dose subcut TIDAC 04/26/24 06/11/24 06/10/24 History subcutaneous solution amlodipine 5 mg tablet 10 mg PO DAILY 06/02/24 06/11/24 06/10/24 History diclofenac sodium 1 % topical gel 1 g topical QID PRN Pain 06/02/24 06/11/24 Unknown History insulin pump cartridge,automated 06/11/24 06/11/24 Unknown History dose,BT with controller subcutaneous (Omnipod 5 G6 Intro Kit (Gen 5) subcutaneous cartridge with controller) Physical Exam Vital Signs: Last Vital Signs Temp 99.3 F 06/12/24 07:55 Pulse 84 06/12/24 08:40 Resp 14 06/12/24 07:30 BP 140/67 H 06/12/24 08:41 Pulse Ox 92 06/12/24 07:55 O2 Del Method Room Air 06/12/24 04:00 O2 Flow Rate 3 06/11/24 15:03 Oxygen Flow Rate 2 06/11/24 02:16 BMI result Body Mass Index 25.2 Const General: no acute distress Eyes EOM: EOMs intact bilaterally Resp Auscultation: diminished lung sounds Cardio Rate: regular rate GI Palpation (GI): Soft to palpation Neuro General: moves all extremities Results Lab Results 06/12/24 06:00 06/12/24 06:00 Lab results: Chemistry 06/11/24 06/12/24 02:27 06:00 Sodium 138 141 Potassium 3.5 3.4 Carbon Dioxide 25 24 BUN 40 H 33 H Creatinine 2.58 H 1.63 H Calcium 8.6 9.1 Hematology 06/11/24 06/12/24 02:27 06:00 WBC 12.6 H 14.4 H Hgb 9.4 L 9.4 L Plt Count 240 264 Urinalysis 06/11/24 05:44 Urine Color Yellow Urine Appearance Clear Urine pH 5.5 Ur Specific [place] 1.010 Urine Protein 30 (1+) H Urine Glucose (UA) Negative Urine Ketones Negative Urine Blood Negative Urine Nitrite Negative Ur Leukocyte Esterase Negative Urine RBC 0-2 Urine WBC 0-5 Ur Squamous Epith Cells 0-2 Hyaline Casts 0-2 Urine Studies 06/11/24 05:44 Urine Creatinine 90.04 Assessment and Plan (1) Acute kidney injury superimposed on CKD: Status: Acute Plan KELVIN due to compromise in renal perfusion with resultant tubular injury No reason to suspect GN/AIN; Getting diuresis; Serum creatinine better No reason to suspect obstructive uropathy or thrombotic micro angiopathy Continue current supportive management for now; Labs AM; May need to add nitrate Procedures Date of Service Date of Service: 06/12/24
--- NOTE | 2024-06-12 10:46 | P.PNIM_ITS ---
Subjective Subjective Date of Service: 06/12/24 Interval History: sob but somewhat better Physical Exam 2 Vital Signs: Vital Signs: Last Vital Signs Temp 99.3 F 06/12/24 07:55 Pulse 84 06/12/24 08:40 Resp 14 06/12/24 07:30 BP 140/67 H 06/12/24 08:41 Pulse Ox 92 06/12/24 07:55 O2 Del Method Room Air 06/12/24 04:00 O2 Flow Rate 3 06/11/24 15:03 Oxygen Flow Rate 2 06/11/24 02:16 BMI result Body Mass Index 25.2 Const: General: no acute distress Eyes: EOM: EOMs intact bilaterally Resp: Auscultation: diminished lung sounds Cardio: Rate: regular rate GI: Palpation (GI): Soft to palpation Neuro: General: moves all extremities Objective Data Active Medications Acetaminophen (Acetaminophen 325 Mg Tablet) 650 mg PO Q6H PRN PRN Reason: Pain, Mild (Pain Scale 1-3), fever or headache Albuterol Sulfate (Albuterol Sulfate 90 Mcg 8 Gm Inhaler) 2 puff INHALE Q4H PRN PRN Reason: bronchospasm Last Admin: 06/11/24 21:59 Dose: 2 puff Documented By: ARGENIS Amlodipine Besylate (Amlodipine Besylate 10 Mg Tablet) 10 mg PO DAILY [facility]; Protocol Last Admin: 06/12/24 08:40 Dose: 10 mg Documented By: MIKE Ascorbic Acid (Ascorbic Acid 250 Mg Tablet) 250 mg PO DAILY [facility] Last Admin: 06/12/24 08:39 Dose: 250 mg Documented By: MIKE Aspirin (Aspirin Enteric Coated 81 Mg Tablet.) 81 mg PO DAILY [facility] Last Admin: 06/12/24 08:39 Dose: 81 mg Documented By: MIKE Atorvastatin Calcium (Atorvastatin Calcium 40 Mg Tablet) 40 mg PO DAILY [facility] Last Admin: 06/12/24 08:39 Dose: 40 mg Documented By: MIKE Calcium Carbonate (Calcium Carbonate 750 Mg Tab.Chew) 750 mg PO Q4H PRN PRN Reason: Heartburn Escitalopram Oxalate (Escitalopram Oxalate 10 Mg Tablet) 10 mg PO DAILY [facility] Last Admin: 06/12/24 08:39 Dose: 10 mg Documented By: MIKE Ferrous Sulfate (Ferrous Sulfate 324 Mg Tablet.) 324 mg PO DAILY [facility] Last Admin: 06/12/24 08:39 Dose: 324 mg Documented By: MIKE Fluconazole (Fluconazole 100 Mg Tablet) 100 mg PO DAILY [facility] Last Admin: 06/12/24 08:40 Dose: 100 mg Documented By: MIKE Fluticasone/Vilanterol (Fluticasone/Vilanterol 100/25 Blst.W.Dev) 1 puff INHALE RDAILY [facility] Last Admin: 06/12/24 07:30 Dose: 1 puff Documented By: AMADO Folic Acid (Folic Acid 1 Mg Tablet) 1 mg PO DAILY [facility] Last Admin: 06/12/24 08:40 Dose: 1 mg Documented By: MIKE Furosemide (Furosemide 40 Mg/4 Ml Vial) 40 mg IVPUSH BID@0900,1800 [facility]; Protocol Last Admin: 06/12/24 08:41 Dose: 40 mg Documented By: MIKE Gabapentin (Gabapentin 300 Mg Capsule) 300 mg PO TID [facility] Last Admin: 06/12/24 08:39 Dose: 300 mg Documented By: MIKE Glucose (Glucose Gel 15 Gm Gel..Gram.) 15 gm PO Q15M PRN; Protocol PRN Reason: per Hypoglycemia Standing Ord. Heparin Sodium (Porcine) (Heparin Sodium,Porcine 5,000 Unit/Ml Vial) 5,000 unit SUBCUT BID [facility] Last Admin: 06/12/24 08:41 Dose: 5,000 unit Documented By: MIKE Hydralazine HCl (Hydralazine Hcl 50 Mg Tablet) 100 mg PO TID [facility]; Protocol Last Admin: 06/12/24 08:40 Dose: 100 mg Documented By: MIKE Dextrose (D10) 250 mls @ 750 mls/hr IV Q15M PRN; Protocol PRN Reason: per Hypoglycemia Standing Ord. Insulin Glargine (Insulin Glargine,Hum.Rec.Anlog 100 Unit/Ml 10 Ml Vial) 10 unit SUBCUT BEDTIME [facility] Last Admin: 06/11/24 21:00 Dose: 10 unit Documented By: ARGENIS Insulin Human Lispro (Insulin Lispro 100 Unit/Ml 3 Ml Vial) 0 unit SUBCUT QIDACHS [facility]; Protocol Last Admin: 06/12/24 08:23 Dose: Not Given Documented By: MIKE Non-Admin Reason: No Insulin Coverage Insulin Pump (Subcutaneous Insulin Pump) 1 each SUBCUT QIDACHS [facility]; Protocol Last Admin: 06/12/24 08:24 Dose: Not Given Documented By: MIKE Non-Admin Reason: pt not using insulin pump Magnesium Hydroxide (Milk Of Magnesia 30 Ml Oral.Susp) 30 ml PO DAILY PRN PRN Reason: Constipation Magnesium Oxide (Magnesium Oxide 400 Mg Tablet) 400 mg PO BIDPC [facility] Last Admin: 06/12/24 08:39 Dose: 400 mg Documented By: MIKE Melatonin (Melatonin 3 Mg Tablet) 6 mg PO BEDTIME PRN PRN Reason: Insomnia Metoprolol Succinate (Metoprolol Succinate Er 100 Mg Tab.Er.24h) 100 mg PO DAILY [facility]; Protocol Last Admin: 06/12/24 08:40 Dose: 100 mg Documented By: MIKE Nicotine (Nicotine 14 Mg Patch.Td24) 14 mg TRANSDERMA DAILY [facility] Last Admin: 06/12/24 08:41 Dose: 14 mg Documented By: MIKE Omeprazole (Omeprazole 20 Mg Capsule.Dr) 20 mg PO BID@0630,1630 [facility] Last Admin: 06/12/24 06:41 Dose: 20 mg Documented By: ARGENIS Sodium Chloride (0.9 % Sodium Chloride Flush 3 Ml Syringe) [facility] Last Admin: 06/12/24 08:41 Dose: 3 ml Documented By: MIKE Sucralfate (Sucralfate 1 Gm Tablet) 1 gm PO QIDACHS [facility] Last Admin: 06/12/24 08:39 Dose: 1 gm Documented By: MIKE Thiamine HCl (Thiamine Hcl 100 Mg Tablet) 100 mg PO DAILY [facility] Last Admin: 06/12/24 08:40 Dose: 100 mg Documented By: MIKE Trazodone HCl (Trazodone Hcl 100 Mg Tablet) 100 mg PO BEDTIME [facility] Last Admin: 06/11/24 21:00 Dose: 100 mg Documented By: ARGENIS Labs 06/12/24 06:00 06/12/24 06:00 Labs: Laboratory Results - last 24 hr 06/11/24 06/11/24 06/11/24 02:27 05:44 15:48 MCV MCH MCHC RDW Plt Count MPV Immature Gran % (Auto) Neut % (Auto) Lymph % (Auto) [place] % (Auto) Eos % (Auto) Baso % (Auto) Lymph # (Auto) [place] # (Auto) Eos # (Auto) Baso # (Auto) Abs Immat Gran (auto) Absolute Neuts (auto) Absolute Nucleated RBC Nucleated RBC % (auto) Anion Gap Estim Creat Clear Calc Estimated GFR POC Glucose 391 H* Random Glucose Calcium Iron 23 L TIBC 294 % Saturation 8 L Unsat Iron Binding 271 Ur Random Sodium < 20.0 Urine Creatinine 90.04 06/11/24 06/12/24 06/12/24 20:55 06:00 07:16 MCV 76.6 L MCH 25.0 L MCHC 32.6 RDW 21.1 H Plt Count 264 MPV 11.0 Immature Gran % (Auto) 0.6 H Neut % (Auto) 78.3 H Lymph % (Auto) 9.8 L [place] % (Auto) 10.1 Eos % (Auto) 0.9 Baso % (Auto) 0.3 Lymph # (Auto) 1.4 [place] # (Auto) 1.5 H Eos # (Auto) 0.1 Baso # (Auto) 0.1 Abs Immat Gran (auto) 0.08 H Absolute Neuts (auto) 11.2 H Absolute Nucleated RBC 0.000 Nucleated RBC % (auto) 0.0 Anion Gap 15 Estim Creat Clear Calc 47.6 Estimated GFR 45 POC Glucose 231 H 148 H Random Glucose 175 H Calcium 9.1 Iron TIBC % Saturation Unsat Iron Binding Ur Random Sodium Urine Creatinine Assessment and Plan (1) Acute kidney injury superimposed on CKD: Status: Acute Plan 48M PMH diabetes, hypertension, mood disorder, COPD with chronic hypoxic respiratory failure on 2-3 L O2, alcohol dependence, CHF with preserved EF, presented with shortness of breath Acute on chronic diastolic CHF with acute on chronic hypoxic respiratory failure Continue IV Lasix, monitor I's and O's and electrolytes, wean O2 as tolerated Acute kidney injury on CKD 3 Likely cardiorenal Monitor closely on IV diuresis COPD Stable Diabetes Continue insulin Hypertension Hydralazine, amlodipine, Lasix, metoprolol Recent esophageal candidiasis Continue Diflucan Alcohol dependence Monitor CIWA DVT prophylaxis on heparin Full code reason for continued hospitalization: Ongoing IV diuresis Quality Stroke Does the patient have a stroke diagnosis?: No VTE Prior VTE?: No VTE Risk Level:: Medical - moderate - high VTE Device Contraindication: Treatment Not Indicated VTE Drug Contraindication: N/A - Med Ordered
[2024-06-12 10:59] LABS: Glucose, Whole Blood 219 mg/dL (60-115)
[2024-06-12] MEDS: Insulin Lispro 100 UNIT/ML 3 ML VIAL SUBCUT ×2 (11:53→21:45)
[2024-06-12 16:09] LABS: Glucose, Whole Blood 104 mg/dL (60-115)
[2024-06-12 21:40] LABS: Glucose, Whole Blood 296 mg/dL (60-115)
[2024-06-12] MEDS: traZODone HCL 100 MG TABLET PO (21:44)
[2024-06-12] MEDS: Insulin Glargine,Hum.rec.anlog 100 UNIT/ML 10 ML VIAL 10 UNIT SUBCUT (21:45)
[2024-06-13] VITALS (12 sets, daily range): BP systolic 124–155; BP diastolic 58–76; PULSE 68–80; RESP 16–21; TEMP 36.2–37.4; O2SAT 88–96
[2024-06-13] MEDS: 0.9 % Sodium Chloride Flush 3 ML SYRINGE IVFLUSH ×4 (00:30→21:03)
[2024-06-13] MEDS: Acetaminophen 325 MG TABLET 650 MG PO (02:14)
[2024-06-13] MEDS: ondansetron HCL 4 MG/2 ML VIAL IVPUSH (02:15)
[2024-06-13] MEDS: Omeprazole 20 MG CAPSULE.DR PO ×2 (05:45→16:29)
[2024-06-13 06:42] LABS: Anion Gap 13 (12-20); Blood Urea Nitrogen 33 mg/dL (9-16); Calcium 8.7 mg/dL (8.4-10.2); Carbon Dioxide 27 mmol/L (22-29); Chloride 105 mmol/L (96-108); Creatinine Clr Calc Pharmacy 52.5; Estimated Glomerular Filt Rate 51; Glucose Fasting 194 mg/dL (60-99); Magnesium 1.8 mg/dL (1.6-2.6); Potassium 3.9 mmol/L (3.3-5.1); Sodium 141 mmol/L (135-145)
[2024-06-13 06:47] LABS: Hematocrit 30.3 % (42.0-52.0); Hemoglobin 9.8 g/dl (14.0-18.0); Mean Corpuscular HGB Conc 32.3 g/dl (31.0-36.0); Mean Corpuscular Hemoglobin 24.9 pg (27.0-33.0); Mean Corpuscular Volume 77.1 fL (80.0-98.0); Mean Platelet Volume 11.1 fL (9.4-12.4); Platelet Count 291 X10*3/uL (160-400); Red Blood Count 3.93 X10*6/uL (4.60-5.80); Red Cell Distribution Width 20.6 % (11.0-16.0); White Blood Count 13.2 X10*3/uL (4.8-10.8)
[2024-06-13] MEDS: Fluticasone/Vilanterol 100/25 BLST.W.DEV 1 PUFF INHALE (07:27)
[2024-06-13 07:29] LABS: Glucose, Whole Blood 202 mg/dL (60-115)
[2024-06-13] MEDS: Furosemide 40 MG/4 ML VIAL IVPUSH ×2 (09:00→18:33)
[2024-06-13] MEDS: Insulin Lispro 100 UNIT/ML 3 ML VIAL SUBCUT ×4 (09:01→20:59)
[2024-06-13] MEDS: hydrALAZINE HCl 50 MG TABLET 100 MG PO ×3 (09:01→20:58)
[2024-06-13] MEDS: Heparin Sodium,Porcine 5,000 UNIT/ML VIAL 5000 UNIT SUBCUT ×2 (09:01→20:59)
[2024-06-13] MEDS: amLODIPine Besylate 10 MG TABLET PO (09:01)
[2024-06-13] MEDS: Ferrous Sulfate 324 MG TABLET.DR PO (09:02)
[2024-06-13] MEDS: Metoprolol Succinate ER 100 MG TAB.ER.24H PO (09:02)
[2024-06-13] MEDS: Atorvastatin Calcium 40 MG TABLET PO (09:02)
[2024-06-13] MEDS: Aspirin Enteric Coated 81 MG TABLET.DR PO (09:02)
[2024-06-13] MEDS: Thiamine HCL 100 MG TABLET PO (09:02)
[2024-06-13] MEDS: Ascorbic Acid 250 MG TABLET PO (09:02)
[2024-06-13] MEDS: Fluconazole 100 MG TABLET PO (09:02)
[2024-06-13] MEDS: Gabapentin 300 MG CAPSULE PO ×3 (09:02→20:58)
[2024-06-13] MEDS: Escitalopram Oxalate 10 MG TABLET PO (09:02)
[2024-06-13] MEDS: Sucralfate 1 GM TABLET PO ×4 (09:02→20:58)
[2024-06-13] MEDS: Magnesium Oxide 400 MG TABLET PO ×2 (09:03→16:29)
[2024-06-13] MEDS: Folic Acid 1 MG TABLET PO (09:03)
[2024-06-13] MEDS: Nicotine 14 MG PATCH.TD24 TRANSDERMA (09:03)
--- NOTE | 2024-06-13 11:23 | HO.PM.IMPN ---
Subjective Subjective Date of Service: 06/13/24 Interval History: sob but somewhat better Physical Exam Vital Signs: Vital Signs: Last Vital Signs Temp 97.8 F 06/13/24 08:00 Pulse 78 06/13/24 09:02 Resp 18 06/13/24 08:00 BP 136/66 06/13/24 09:00 Pulse Ox 91 L 06/13/24 08:00 O2 Del Method Nasal Cannula 06/13/24 08:00 O2 Flow Rate 5 06/13/24 08:00 Oxygen Flow Rate 2 06/11/24 02:16 BMI result Body Mass Index 25.2 Const: General: no acute distress Eyes: EOM: EOMs intact bilaterally Resp: Auscultation: diminished lung sounds Cardio: Rate: regular rate GI: Palpation (GI): Soft to palpation Neuro: General: moves all extremities Objective Data Active Medications Acetaminophen (Acetaminophen 325 Mg Tablet) 650 mg PO Q6H PRN PRN Reason: Pain, Mild (Pain Scale 1-3), fever or headache Last Admin: 06/13/24 02:14 Dose: 650 mg Documented By: KIMMY Albuterol Sulfate (Albuterol Sulfate 90 Mcg 8 Gm Inhaler) 2 puff INHALE Q4H PRN PRN Reason: bronchospasm Last Admin: 06/11/24 21:59 Dose: 2 puff Documented By: ARGENIS Amlodipine Besylate (Amlodipine Besylate 10 Mg Tablet) 10 mg PO DAILY [facility]; Protocol Last Admin: 06/13/24 09:01 Dose: 10 mg Documented By: JAKE Ascorbic Acid (Ascorbic Acid 250 Mg Tablet) 250 mg PO DAILY [facility] Last Admin: 06/13/24 09:02 Dose: 250 mg Documented By: JAKE Aspirin (Aspirin Enteric Coated 81 Mg Tablet.) 81 mg PO DAILY [facility] Last Admin: 06/13/24 09:02 Dose: 81 mg Documented By: JAKE Atorvastatin Calcium (Atorvastatin Calcium 40 Mg Tablet) 40 mg PO DAILY [facility] Last Admin: 06/13/24 09:02 Dose: 40 mg Documented By: JAKE Calcium Carbonate (Calcium Carbonate 750 Mg Tab.Chew) 750 mg PO Q4H PRN PRN Reason: Heartburn Escitalopram Oxalate (Escitalopram Oxalate 10 Mg Tablet) 10 mg PO DAILY [facility] Last Admin: 06/13/24 09:02 Dose: 10 mg Documented By: JAKE Ferrous Sulfate (Ferrous Sulfate 324 Mg Tablet.Dr) 324 mg PO DAILY [facility] Last Admin: 06/13/24 09:02 Dose: 324 mg Documented By: JAKE Fluconazole (Fluconazole 100 Mg Tablet) 100 mg PO DAILY [facility] Last Admin: 06/13/24 09:02 Dose: 100 mg Documented By: JAKE Fluticasone/Vilanterol (Fluticasone/Vilanterol 100/25 Blst.W.Dev) 1 puff INHALE RDAILY [facility] Last Admin: 06/13/24 07:27 Dose: 1 puff Documented By: JESSE Folic Acid (Folic Acid 1 Mg Tablet) 1 mg PO DAILY [facility] Last Admin: 06/13/24 09:03 Dose: 1 mg Documented By: JAKE Furosemide (Furosemide 40 Mg/4 Ml Vial) 40 mg IVPUSH BID@0900,1800 [facility]; Protocol Last Admin: 06/13/24 09:00 Dose: 40 mg Documented By: JAKE Gabapentin (Gabapentin 300 Mg Capsule) 300 mg PO TID [facility] Last Admin: 06/13/24 09:02 Dose: 300 mg Documented By: JAKE Glucose (Glucose Gel 15 Gm Gel..Gram.) 15 gm PO Q15M PRN; Protocol PRN Reason: per Hypoglycemia Standing Ord. Heparin Sodium (Porcine) (Heparin Sodium,Porcine 5,000 Unit/Ml Vial) 5,000 unit SUBCUT BID [facility] Last Admin: 06/13/24 09:01 Dose: 5,000 unit Documented By: JAKE Hydralazine HCl (Hydralazine Hcl 50 Mg Tablet) 100 mg PO TID [facility]; Protocol Last Admin: 06/13/24 09:01 Dose: 100 mg Documented By: JAKE Dextrose (D10) 250 mls @ 750 mls/hr IV Q15M PRN; Protocol PRN Reason: per Hypoglycemia Standing Ord. Insulin Glargine (Insulin Glargine,Hum.Rec.Anlog 100 Unit/Ml 10 Ml Vial) 10 unit SUBCUT BEDTIME [facility] Last Admin: 06/12/24 21:45 Dose: 10 unit Documented By: TANNER Insulin Human Lispro (Insulin Lispro 100 Unit/Ml 3 Ml Vial) 0 unit SUBCUT QIDAS [facility]; Protocol Last Admin: 06/13/24 09:01 Dose: 4 unit Documented By: JAKE Insulin Pump (Subcutaneous Insulin Pump) [facility]; Protocol Last Admin: 06/13/24 09:04 Dose: Not Given Documented By: JAKE Non-Admin Reason: pt own insulin pump not in use Magnesium Hydroxide (Milk Of Magnesia 30 Ml Oral.Susp) 30 ml PO DAILY PRN PRN Reason: Constipation Magnesium Oxide (Magnesium Oxide 400 Mg Tablet) 400 mg PO BIDPC [facility] Last Admin: 06/13/24 09:03 Dose: 400 mg Documented By: JAKE Melatonin (Melatonin 3 Mg Tablet) 6 mg PO BEDTIME PRN PRN Reason: Insomnia Metoprolol Succinate (Metoprolol Succinate Er 100 Mg Tab.Er.24h) 100 mg PO DAILY [facility]; Protocol Last Admin: 06/13/24 09:02 Dose: 100 mg Documented By: JAKE Nicotine (Nicotine 14 Mg Patch.Td24) 14 mg TRANSDERMA DAILY [facility] Last Admin: 06/13/24 09:03 Dose: 14 mg Documented By: JAKE Omeprazole (Omeprazole 20 Mg Capsule.Dr) 20 mg PO BID@0630,1630 [facility] Last Admin: 06/13/24 05:45 Dose: 20 mg Documented By: KIMMY Ondansetron HCl (Ondansetron Hcl 4 Mg/2 Ml Vial) 4 mg IVPUSH Q6H PRN PRN Reason: Nausea and Vomiting Last Admin: 06/13/24 02:15 Dose: 4 mg Documented By: ANTLEYLA Sodium Chloride (0.9 % Sodium Chloride Flush 3 Ml Syringe) 3 ml IVFLUSH QSHIFT [facility] Last Admin: 06/13/24 09:04 Dose: 3 ml Documented By: JAKE Sucralfate (Sucralfate 1 Gm Tablet) 1 gm PO QIDACHS [facility] Last Admin: 06/13/24 09:02 Dose: 1 gm Documented By: JAKE Thiamine HCl (Thiamine Hcl 100 Mg Tablet) 100 mg PO DAILY [facility] Last Admin: 06/13/24 09:02 Dose: 100 mg Documented By: JAKE Trazodone HCl (Trazodone Hcl 100 Mg Tablet) 100 mg PO BEDTIME [facility] Last Admin: 06/12/24 21:44 Dose: 100 mg Documented By: TANNER Labs 06/13/24 05:55 06/13/24 05:55 Labs: Laboratory Results - last 24 hr 06/12/24 06/12/24 06/13/24 16:05 20:48 05:55 MCV 77.1 L MCH 24.9 L MCHC 32.3 RDW 20.6 H Plt Count 291 MPV 11.1 Absolute Nucleated RBC 0.000 Nucleated RBC % (auto) 0.0 Anion Gap 13 Estim Creat Clear Calc 52.5 Estimated GFR 51 POC Glucose 104 296 H Fasting Glucose 194 H Calcium 8.7 Magnesium 1.8 06/13/24 07:26 MCV MCH MCHC RDW Plt Count MPV Absolute Nucleated RBC Nucleated RBC % (auto) Anion Gap Estim Creat Clear Calc Estimated GFR POC Glucose 202 H Fasting Glucose Calcium Magnesium Microbiology Microbiology Results: Microbiology 06/11/24 09:28 Blood Culture - Preliminary Blood - Venous No growth after 24 hours. 06/11/24 09:28 Blood Culture - Preliminary Blood - Venous No growth after 24 hours. Assessment and Plan (1) Acute kidney injury superimposed on CKD: Status: Acute Plan 48M PMH diabetes, hypertension, mood disorder, COPD with chronic hypoxic respiratory failure on 2-3 L O2, alcohol dependence, CHF with preserved EF, presented with shortness of breath Acute on chronic diastolic CHF with acute on chronic hypoxic respiratory failure Continue IV Lasix, monitor I's and O's and electrolytes, wean O2 as tolerated, still not at baseline Acute kidney injury on CKD 3 Likely cardiorenal Monitor closely on IV diuresis - continues to improve COPD Stable Diabetes Continue insulin Hypertension Hydralazine, amlodipine, Lasix, metoprolol Recent esophageal candidiasis Continue Diflucan Alcohol dependence Monitor CIWA DVT prophylaxis on heparin Full code reason for continued hospitalization: Ongoing IV diuresis Quality Stroke Does the patient have a stroke diagnosis?: No VTE Prior VTE?: No VTE Risk Level:: Medical - moderate - high VTE Device Contraindication: Treatment Not Indicated VTE Drug Contraindication: N/A - Med Ordered
[2024-06-13 11:51] LABS: Glucose, Whole Blood 300 mg/dL (60-115)
[2024-06-13 15:54] LABS: Glucose, Whole Blood 200 mg/dL (60-115)
--- NOTE | 2024-06-13 19:35 | P.PNNP_ITS ---
Subjective Subjective Date of Service: 06/13/24 Interval history: sob but somewhat better. All recent data reviewed Physical Exam 2 Vital Signs: Vital Signs: Last Vital Signs Temp 98.5 F 06/13/24 19:16 Pulse 76 06/13/24 19:16 Resp 19 06/13/24 19:16 BP 141/67 H 06/13/24 19:16 Pulse Ox 88 L 06/13/24 19:16 O2 Del Method Oxymask 06/13/24 19:16 O2 Flow Rate 2 06/13/24 15:36 Oxygen Flow Rate 2 06/11/24 02:16 BMI result Body Mass Index 25.2 Const: General: no acute distress Orientation/consciousness: patient oriented x3 HEENT: Head: Yes normocephalic Eyes: EOM: EOMs intact bilaterally Neck: Neck: Yes supple Resp: Auscultation: diminished lung sounds Cardio: Rate: regular rate GI: Palpation (GI): Soft to palpation Neuro: General: patient oriented x3 and moves all extremities Objective Data Labs 06/13/24 05:55 06/13/24 05:55 Labs: Laboratory Results - last 24 hr 06/12/24 06/13/24 06/13/24 20:48 05:55 07:26 WBC 13.2 H RBC 3.93 L Hgb 9.8 L Hct 30.3 L MCV 77.1 L MCH 24.9 L MCHC 32.3 RDW 20.6 H Plt Count 291 MPV 11.1 Absolute Nucleated RBC 0.000 Nucleated RBC % (auto) 0.0 Sodium 141 Potassium 3.9 Chloride 105 Carbon Dioxide 27 Anion Gap 13 BUN 33 H Creatinine 1.48 H Estim Creat Clear Calc 52.5 Estimated GFR 51 POC Glucose 296 H 202 H Fasting Glucose 194 H Calcium 8.7 Magnesium 1.8 06/13/24 06/13/24 11:47 15:50 WBC RBC Hgb Hct MCV MCH MCHC RDW Plt Count MPV Absolute Nucleated RBC Nucleated RBC % (auto) Sodium Potassium Chloride Carbon Dioxide Anion Gap BUN Creatinine Estim Creat Clear Calc Estimated GFR POC Glucose 300 H 200 H Fasting Glucose Calcium Magnesium Microbiology Microbiology Results: Microbiology 06/11/24 09:28 Blood - Venous Blood Culture - Preliminary No growth after 48 hours. 06/11/24 09:28 Blood - Venous Blood Culture - Preliminary No growth after 48 hours. Procedures Date of Service Date of Service: 06/13/24 Assessment & Plan Assessment and plan (1) Acute kidney injury superimposed on CKD: Status: Acute Plan KELVIN due to compromise in renal perfusion with resultant tubular injury No reason to suspect GN/AIN; Getting diuresis; Serum creatinine better No reason to suspect obstructive uropathy or thrombotic micro angiopathy Continue current supportive management for now; Labs AM; May need to add nitrate Progress Note: Quality Stroke Does the patient have a stroke diagnosis?: No
[2024-06-13 19:41] LABS: Glucose, Whole Blood 240 mg/dL (60-115)
[2024-06-13] MEDS: traZODone HCL 100 MG TABLET PO (20:58)
[2024-06-13] MEDS: Insulin Glargine,Hum.rec.anlog 100 UNIT/ML 10 ML VIAL 10 UNIT SUBCUT (21:00)
[2024-06-14] VITALS (7 sets, daily range): BP systolic 129–142; BP diastolic 63–72; PULSE 65–80; RESP 18–20; TEMP 36.1–37.1; O2SAT 88–94; BMI 25.1
[2024-06-14] MEDS: Acetaminophen 325 MG TABLET 650 MG PO (02:47)
[2024-06-14] MEDS: Omeprazole 20 MG CAPSULE.DR PO ×2 (06:07→16:24)
[2024-06-14] MEDS: traMADoL HCL 50 MG TABLET 25 MG PO (06:08)
[2024-06-14 06:39] LABS: Hematocrit 26.7 % (42.0-52.0); Hemoglobin 8.7 g/dl (14.0-18.0); Mean Corpuscular HGB Conc 32.6 g/dl (31.0-36.0); Mean Corpuscular Hemoglobin 24.9 pg (27.0-33.0); Mean Corpuscular Volume 76.5 fL (80.0-98.0); Mean Platelet Volume 10.6 fL (9.4-12.4); Platelet Count 279 X10*3/uL (160-400); Red Blood Count 3.49 X10*6/uL (4.60-5.80); Red Cell Distribution Width 20.3 % (11.0-16.0); White Blood Count 13.6 X10*3/uL (4.8-10.8)
[2024-06-14 06:57] LABS: Anion Gap 14 (12-20); Blood Urea Nitrogen 38 mg/dL (9-16); Calcium 8.9 mg/dL (8.4-10.2); Carbon Dioxide 25 mmol/L (22-29); Chloride 102 mmol/L (96-108); Creatinine Clr Calc Pharmacy 43.9; Estimated Glomerular Filt Rate 41; Glucose Fasting 281 mg/dL (60-99); Magnesium 2.1 mg/dL (1.6-2.6); Potassium 4.2 mmol/L (3.3-5.1); Sodium 137 mmol/L (135-145)
[2024-06-14 06:58] LABS: B Type Natriuretic Peptide 449 pg/mL (<100)
--- NOTE | 2024-06-14 07:13 | PC.NURSE ---
Keep desating throughout shift.RT place cpap on patient with o2 at 4L.pt desat to 77%. BPAP was place on patient. pt saturation maintain at 87 -88%.Replace oxymask with o2 at 6L, SATURATION INCREASED TO 91%.
[2024-06-14] MEDS: Fluticasone/Vilanterol 100/25 BLST.W.DEV 1 PUFF INHALE (07:46)
[2024-06-14] MEDS: Nicotine 14 MG PATCH.TD24 TRANSDERMA (07:49)
[2024-06-14] MEDS: Heparin Sodium,Porcine 5,000 UNIT/ML VIAL 5000 UNIT SUBCUT ×2 (07:50→19:55)
[2024-06-14] MEDS: Insulin Lispro 100 UNIT/ML 3 ML VIAL SUBCUT ×4 (07:50→21:45)
[2024-06-14] MEDS: Aspirin Enteric Coated 81 MG TABLET.DR PO (07:51)
[2024-06-14] MEDS: Doxycycline Monohydrate 100 MG CAPSULE PO ×2 (07:51→19:55)
[2024-06-14] MEDS: Magnesium Oxide 400 MG TABLET PO ×2 (07:51→16:24)
[2024-06-14] MEDS: 0.9 % Sodium Chloride Flush 3 ML SYRINGE IVFLUSH ×3 (07:51→21:49)
[2024-06-14] MEDS: Fluconazole 100 MG TABLET PO (07:51)
[2024-06-14] MEDS: Sucralfate 1 GM TABLET PO ×4 (07:51→19:55)
[2024-06-14] MEDS: Escitalopram Oxalate 10 MG TABLET PO (07:52)
[2024-06-14] MEDS: hydrALAZINE HCl 50 MG TABLET 100 MG PO ×3 (07:52→19:55)
[2024-06-14] MEDS: predniSONE 20 MG TABLET 40 MG PO (07:52)
[2024-06-14] MEDS: Gabapentin 300 MG CAPSULE PO ×3 (07:52→19:55)
[2024-06-14] MEDS: Folic Acid 1 MG TABLET PO (07:53)
[2024-06-14] MEDS: Atorvastatin Calcium 40 MG TABLET PO (07:53)
[2024-06-14] MEDS: Ferrous Sulfate 324 MG TABLET.DR PO (07:53)
[2024-06-14] MEDS: Thiamine HCL 100 MG TABLET PO (07:53)
[2024-06-14] MEDS: Furosemide 40 MG TABLET PO (07:53)
[2024-06-14] MEDS: Metoprolol Succinate ER 100 MG TAB.ER.24H PO (07:53)
[2024-06-14] MEDS: amLODIPine Besylate 10 MG TABLET PO (07:54)
[2024-06-14] MEDS: Ascorbic Acid 250 MG TABLET PO (07:54)
[2024-06-14 07:59] LABS: Glucose, Whole Blood 288 mg/dL (60-115)
--- NOTE | 2024-06-14 08:55 | HO.PM.IMPN ---
Subjective Subjective Date of Service: 06/14/24 Interval History: still sob Physical Exam Vital Signs: Vital Signs: Last Vital Signs Temp 97.7 F 06/14/24 07:38 Pulse 68 06/14/24 07:48 Resp 20 06/14/24 07:48 BP 135/72 06/14/24 07:38 Pulse Ox 90 L 06/14/24 07:38 O2 Del Method Oxymask 06/14/24 07:38 O2 Flow Rate 6 06/14/24 07:38 FiO2 91 06/14/24 06:50 Oxygen Flow Rate 2 06/11/24 02:16 BMI result Body Mass Index 25.1 Const: General: no acute distress Orientation/consciousness: patient oriented x3 HEENT: Head: Yes normocephalic Eyes: EOM: EOMs intact bilaterally Neck: Neck: Yes supple Resp: Auscultation: diminished lung sounds Cardio: Rate: regular rate GI: Palpation (GI): Soft to palpation Neuro: General: patient oriented x3 and moves all extremities Objective Data Active Medications Acetaminophen (Acetaminophen 325 Mg Tablet) 650 mg PO Q6H PRN PRN Reason: Pain, Mild (Pain Scale 1-3), fever or headache Last Admin: 06/14/24 02:47 Dose: 650 mg Documented By: RAQUEL Albuterol Sulfate (Albuterol Sulfate 90 Mcg 8 Gm Inhaler) 2 puff INHALE Q4H PRN PRN Reason: bronchospasm Last Admin: 06/11/24 21:59 Dose: 2 puff Documented By: ARGENIS Amlodipine Besylate (Amlodipine Besylate 10 Mg Tablet) 10 mg PO DAILY [facility]; Protocol Last Admin: 06/14/24 07:54 Dose: 10 mg Documented By: BEN Ascorbic Acid (Ascorbic Acid 250 Mg Tablet) 250 mg PO DAILY [facility] Last Admin: 06/14/24 07:54 Dose: 250 mg Documented By: BEN Aspirin (Aspirin Enteric Coated 81 Mg Tablet.) 81 mg PO DAILY [facility] Last Admin: 06/14/24 07:51 Dose: 81 mg Documented By: BEN Atorvastatin Calcium (Atorvastatin Calcium 40 Mg Tablet) 40 mg PO DAILY [facility] Last Admin: 06/14/24 07:53 Dose: 40 mg Documented By: BEN Calcium Carbonate (Calcium Carbonate 750 Mg Tab.Chew) 750 mg PO Q4H PRN PRN Reason: Heartburn Doxycycline Monohydrate (Doxycycline Monohydrate 100 Mg Capsule) 100 mg PO Q12H [facility] Last Admin: 06/14/24 07:51 Dose: 100 mg Documented By: BEN Escitalopram Oxalate (Escitalopram Oxalate 10 Mg Tablet) 10 mg PO DAILY [facility] Last Admin: 06/14/24 07:52 Dose: 10 mg Documented By: BEN Ferrous Sulfate (Ferrous Sulfate 324 Mg Tablet.Dr) 324 mg PO DAILY [facility] Last Admin: 06/14/24 07:53 Dose: 324 mg Documented By: BEN Fluconazole (Fluconazole 100 Mg Tablet) 100 mg PO DAILY [facility] Last Admin: 06/14/24 07:51 Dose: 100 mg Documented By: BEN Fluticasone/Vilanterol (Fluticasone/Vilanterol 100/25 Blst.W.Dev) 1 puff INHALE RDAILY [facility] Last Admin: 06/14/24 07:46 Dose: 1 puff Documented By: AMADO Folic Acid (Folic Acid 1 Mg Tablet) 1 mg PO DAILY [facility] Last Admin: 06/14/24 07:53 Dose: 1 mg Documented By: BEN Furosemide (Furosemide 40 Mg Tablet) 40 mg PO DAILY [facility]; Protocol Last Admin: 06/14/24 07:53 Dose: 40 mg Documented By: BEN Gabapentin (Gabapentin 300 Mg Capsule) 300 mg PO TID [facility] Last Admin: 06/14/24 07:52 Dose: 300 mg Documented By: BEN Glucose (Glucose Gel 15 Gm Gel..Gram.) 15 gm PO Q15M PRN; Protocol PRN Reason: per Hypoglycemia Standing Ord. Heparin Sodium (Porcine) (Heparin Sodium,Porcine 5,000 Unit/Ml Vial) 5,000 unit SUBCUT BID [facility] Last Admin: 06/14/24 07:50 Dose: 5,000 unit Documented By: BEN Hydralazine HCl (Hydralazine Hcl 50 Mg Tablet) 100 mg PO TID [facility]; Protocol Last Admin: 06/14/24 07:52 Dose: 100 mg Documented By: BEN Dextrose (D10) 250 mls @ 750 mls/hr IV Q15M PRN; Protocol PRN Reason: per Hypoglycemia Standing Ord. Insulin Glargine (Insulin Glargine,Hum.Rec.Anlog 100 Unit/Ml 10 Ml Vial) 10 unit SUBCUT BEDTIME [facility] Last Admin: 06/13/24 21:00 Dose: 10 unit Documented By: RAQUEL Comments: BS 240 Insulin Human Lispro (Insulin Lispro 100 Unit/Ml 3 Ml Vial) 0 unit SUBCUT QIDAS [facility]; Protocol Last Admin: 06/14/24 07:50 Dose: 6 unit Documented By: BEN Insulin Pump (Subcutaneous Insulin Pump) 1 each SUBCUT QIDAS [facility]; Protocol Last Admin: 06/14/24 07:29 Dose: Not Given Documented By: BEN Non-Admin Reason: device not in use Magnesium Hydroxide (Milk Of Magnesia 30 Ml Oral.Susp) 30 ml PO DAILY PRN PRN Reason: Constipation Magnesium Oxide (Magnesium Oxide 400 Mg Tablet) 400 mg PO BIDPC [facility] Last Admin: 06/14/24 07:51 Dose: 400 mg Documented By: BEN Melatonin (Melatonin 3 Mg Tablet) 6 mg PO BEDTIME PRN PRN Reason: Insomnia Metoprolol Succinate (Metoprolol Succinate Er 100 Mg Tab.Er.24h) 100 mg PO DAILY [facility]; Protocol Last Admin: 06/14/24 07:53 Dose: 100 mg Documented By: BEN Nicotine (Nicotine 14 Mg Patch.Td24) 14 mg TRANSDERMA DAILY [facility] Last Admin: 06/14/24 07:49 Dose: 14 mg Documented By: BEN Omeprazole (Omeprazole 20 Mg Capsule.Dr) 20 mg PO BID@0630,1630 [facility] Last Admin: 06/14/24 06:07 Dose: 20 mg Documented By: RAQUEL Ondansetron HCl (Ondansetron Hcl 4 Mg/2 Ml Vial) 4 mg IVPUSH Q6H PRN PRN Reason: Nausea and Vomiting Last Admin: 06/13/24 02:15 Dose: 4 mg Documented By: ANTOIC Prednisone (Prednisone 20 Mg Tablet) 40 mg PO DAILY [facility] Last Admin: 06/14/24 07:52 Dose: 40 mg Documented By: BEN Sodium Chloride (0.9 % Sodium Chloride Flush 3 Ml Syringe) 3 ml IVFLUSH QSHIFT [facility] Last Admin: 06/14/24 07:51 Dose: 3 ml Documented By: BEN Sucralfate (Sucralfate 1 Gm Tablet) 1 gm PO QIDACHS [facility] Last Admin: 06/14/24 07:51 Dose: 1 gm Documented By: BEN Thiamine HCl (Thiamine Hcl 100 Mg Tablet) 100 mg PO DAILY [facility] Last Admin: 06/14/24 07:53 Dose: 100 mg Documented By: BEN Trazodone HCl (Trazodone Hcl 100 Mg Tablet) 100 mg PO BEDTIME [facility] Last Admin: 06/13/24 20:58 Dose: 100 mg Documented By: RAQUEL Labs 06/14/24 06:10 06/14/24 06:10 Labs: Laboratory Results - last 24 hr 06/13/24 06/13/24 06/13/24 11:47 15:50 19:35 MCV MCH MCHC RDW Plt Count MPV Absolute Nucleated RBC Nucleated RBC % (auto) Anion Gap Estim Creat Clear Calc Estimated GFR POC Glucose 300 H 200 H 240 H Fasting Glucose Calcium Magnesium B-Natriuretic Peptide 06/14/24 06/14/24 06:10 07:40 MCV 76.5 L MCH 24.9 L MCHC 32.6 RDW 20.3 H Plt Count 279 MPV 10.6 Absolute Nucleated RBC 0.000 Nucleated RBC % (auto) 0.0 Anion Gap 14 Estim Creat Clear Calc 43.9 Estimated GFR 41 POC Glucose 288 H Fasting Glucose 281 H Calcium 8.9 Magnesium 2.1 B-Natriuretic Peptide 449 H Microbiology Microbiology Results: Microbiology 06/11/24 09:28 Blood Culture - Preliminary Blood - Venous No growth after 48 hours. 06/11/24 09:28 Blood Culture - Preliminary Blood - Venous No growth after 48 hours. Assessment and Plan (1) Acute kidney injury superimposed on CKD: Status: Acute Plan 48M PMH diabetes, hypertension, mood disorder, COPD with chronic hypoxic respiratory failure on 2-3 L O2, alcohol dependence, CHF with preserved EF, presented with shortness of breath Acute on chronic diastolic CHF with acute on chronic hypoxic respiratory failure diuresed well, will change to po lasix Acute kidney injury on CKD 3 Likely cardiorenal improved after diuresis, now with slight increase in creatiinine will switch to maintenance lasix COPD with acute decompensation Start prednisone, doxy Diabetes Continue insulin Hypertension Hydralazine, amlodipine, Lasix, metoprolol Recent esophageal candidiasis Continue Diflucan Alcohol dependence Monitor CIWA DVT prophylaxis on heparin Full code reason for continued hospitalization: hypoxia Quality Stroke Does the patient have a stroke diagnosis?: No VTE Prior VTE?: No VTE Risk Level:: Medical - moderate - high VTE Device Contraindication: Treatment Not Indicated VTE Drug Contraindication: N/A - Med Ordered
[2024-06-14 11:29] LABS: Glucose, Whole Blood 444 mg/dL (60-115)
[2024-06-14] MEDS: Insulin Lispro 100 UNIT/ML 3 ML VIAL 10 UNIT SUBCUT ×2 (11:30→17:56)
[2024-06-14 17:03] LABS: Glucose, Whole Blood 359 mg/dL (60-115)
--- NOTE | 2024-06-14 18:52 | P.PNNP_ITS ---
Subjective Subjective Date of Service: 06/14/24 Interval history: still sob; Seen AM; All recent data reviewed Physical Exam 2 Vital Signs: Vital Signs: Last Vital Signs Temp 97.6 F 06/14/24 15:49 Pulse 67 06/14/24 15:49 Resp 20 06/14/24 15:49 BP 135/67 06/14/24 15:49 Pulse Ox 92 06/14/24 15:49 O2 Del Method Nasal Cannula 06/14/24 15:49 O2 Flow Rate 2 06/14/24 15:49 FiO2 91 06/14/24 06:50 Oxygen Flow Rate 2 06/11/24 02:16 BMI result Body Mass Index 25.1 Const: General: no acute distress Eyes: EOM: EOMs intact bilaterally Neck: Neck: Yes supple Resp: Auscultation: diminished lung sounds Cardio: Rate: regular rate GI: Palpation (GI): Soft to palpation Neuro: General: moves all extremities Objective Data Labs 06/14/24 06:10 06/14/24 06:10 Labs: Laboratory Results - last 24 hr 06/13/24 06/14/24 06/14/24 19:35 06:10 07:40 WBC 13.6 H RBC 3.49 L Hgb 8.7 L Hct 26.7 L MCV 76.5 L MCH 24.9 L MCHC 32.6 RDW 20.3 H Plt Count 279 MPV 10.6 Absolute Nucleated RBC 0.000 Nucleated RBC % (auto) 0.0 Sodium 137 Potassium 4.2 Chloride 102 Carbon Dioxide 25 Anion Gap 14 BUN 38 H Creatinine 1.77 H Estim Creat Clear Calc 43.9 Estimated GFR 41 POC Glucose 240 H 288 H Fasting Glucose 281 H Calcium 8.9 Magnesium 2.1 B-Natriuretic Peptide 449 H 06/14/24 06/14/24 11:17 16:58 WBC RBC Hgb Hct MCV MCH MCHC RDW Plt Count MPV Absolute Nucleated RBC Nucleated RBC % (auto) Sodium Potassium Chloride Carbon Dioxide Anion Gap BUN Creatinine Estim Creat Clear Calc Estimated GFR POC Glucose 444 H* 359 H* Fasting Glucose Calcium Magnesium B-Natriuretic Peptide Microbiology Microbiology Results: Microbiology 06/11/24 09:28 Blood - Venous Blood Culture - Preliminary No growth after 48 hours. 06/11/24 09:28 Blood - Venous Blood Culture - Preliminary No growth after 48 hours. Procedures Date of Service Date of Service: 06/14/24 Assessment & Plan Assessment and plan (1) Acute kidney injury superimposed on CKD: Status: Acute Plan KELVIN due to compromise in renal perfusion with resultant tubular injury No reason to suspect GN/AIN; Getting diuresis; Serum creatinine stable No reason to suspect obstructive uropathy or thrombotic micro angiopathy Continue current supportive management for now; Labs AM; May need to add nitrate Progress Note: Quality Stroke Does the patient have a stroke diagnosis?: No
[2024-06-14 21:22] LABS: Glucose, Whole Blood 408 mg/dL (60-115)
[2024-06-14] MEDS: Insulin Glargine,Hum.rec.anlog 100 UNIT/ML 10 ML VIAL 20 UNIT SUBCUT (21:44)
[2024-06-14] MEDS: traZODone HCL 100 MG TABLET PO (21:45)
[2024-06-15] VITALS (15 sets, daily range): BP systolic 121–155; BP diastolic 63–74; PULSE 75–87; RESP 17–22; TEMP 36.1–37.1; O2SAT 88–96
[2024-06-15 05:48] LABS: Hemoglobin 9.3 g/dl (14.0-18.0); Mean Corpuscular HGB Conc 32.1 g/dl (31.0-36.0); Mean Corpuscular Hemoglobin 24.5 pg (27.0-33.0); Mean Corpuscular Volume 76.5 fL (80.0-98.0); Mean Platelet Volume 11.1 fL (9.4-12.4); Platelet Count 346 X10*3/uL (160-400); Red Blood Count 3.79 X10*6/uL (4.60-5.80); Red Cell Distribution Width 19.6 % (11.0-16.0); White Blood Count 15.4 X10*3/uL (4.8-10.8)
[2024-06-15 06:05] LABS: Anion Gap 17 (12-20); Blood Urea Nitrogen 51 mg/dL (9-16); Calcium 9.5 mg/dL (8.4-10.2); Carbon Dioxide 20 mmol/L (22-29); Chloride 103 mmol/L (96-108); Estimated Glomerular Filt Rate 36; Glucose Fasting 405 mg/dL (60-99); Potassium 4.7 mmol/L (3.3-5.1); Sodium 135 mmol/L (135-145)
[2024-06-15] MEDS: Insulin Regular, Human 100 UNIT/ML 10 ML VIAL IVPUSH (06:19)
[2024-06-15] MEDS: Omeprazole 20 MG CAPSULE.DR PO ×2 (06:21→16:48)
--- NOTE | 2024-06-15 06:33 | PC.NURSE ---
Pt awake majority of night, slept for short periods of time. Oxygen levels adjusted throughout night due to desaturation . O2 10 L via sorensen cannula.
[2024-06-15 07:29] LABS: Glucose, Whole Blood 437 mg/dL (60-115)
[2024-06-15] MEDS: Fluticasone/Vilanterol 100/25 BLST.W.DEV 1 PUFF INHALE (07:48)
--- NOTE | 2024-06-15 08:42 | P.PNIM_ITS ---
Subjective Subjective Date of Service: 06/15/24 Interval History: increasing sob and o2 requirementrs Physical Exam 2 Vital Signs: Vital Signs: Last Vital Signs Temp 98.0 F 06/15/24 08:00 Pulse 83 06/15/24 08:00 Resp 19 06/15/24 08:00 BP 155/74 H 06/15/24 08:00 Pulse Ox 93 06/15/24 08:00 O2 Del Method Nasal Cannula 06/15/24 08:00 O2 Flow Rate 9 06/15/24 08:00 FiO2 91 06/14/24 06:50 Oxygen Flow Rate 2 06/11/24 02:16 BMI result Body Mass Index 25.1 Const: General: no acute distress Eyes: EOM: EOMs intact bilaterally Neck: Neck: Yes supple Resp: Auscultation: diminished lung sounds Cardio: Rate: regular rate GI: Palpation (GI): Soft to palpation Neuro: General: moves all extremities Objective Data Active Medications Acetaminophen (Acetaminophen 325 Mg Tablet) 650 mg PO Q6H PRN PRN Reason: Pain, Mild (Pain Scale 1-3), fever or headache Last Admin: 06/14/24 02:47 Dose: 650 mg Documented By: RAQUEL Albuterol Sulfate (Albuterol Sulfate 90 Mcg 8 Gm Inhaler) 2 puff INHALE Q4H PRN PRN Reason: bronchospasm Last Admin: 06/11/24 21:59 Dose: 2 puff Documented By: ARGENIS Amlodipine Besylate (Amlodipine Besylate 10 Mg Tablet) 10 mg PO DAILY [facility]; Protocol Last Admin: 06/14/24 07:54 Dose: 10 mg Documented By: BEN Ascorbic Acid (Ascorbic Acid 250 Mg Tablet) 250 mg PO DAILY [facility] Last Admin: 06/14/24 07:54 Dose: 250 mg Documented By: BEN Aspirin (Aspirin Enteric Coated 81 Mg Tablet.Dr) 81 mg PO DAILY [facility] Last Admin: 06/14/24 07:51 Dose: 81 mg Documented By: BEN Atorvastatin Calcium (Atorvastatin Calcium 40 Mg Tablet) 40 mg PO DAILY [facility] Last Admin: 06/14/24 07:53 Dose: 40 mg Documented By: BEN Calcium Carbonate (Calcium Carbonate 750 Mg Tab.Chew) 750 mg PO Q4H PRN PRN Reason: Heartburn Doxycycline Monohydrate (Doxycycline Monohydrate 100 Mg Capsule) 100 mg PO Q12H [facility] Last Admin: 06/14/24 19:55 Dose: 100 mg Documented By: ELISA Escitalopram Oxalate (Escitalopram Oxalate 10 Mg Tablet) 10 mg PO DAILY [facility] Last Admin: 06/14/24 07:52 Dose: 10 mg Documented By: BEN Ferrous Sulfate (Ferrous Sulfate 324 Mg Tablet.) 324 mg PO DAILY [facility] Last Admin: 06/14/24 07:53 Dose: 324 mg Documented By: BEN Fluconazole (Fluconazole 100 Mg Tablet) 100 mg PO DAILY [facility] Last Admin: 06/14/24 07:51 Dose: 100 mg Documented By: BEN Fluticasone/Vilanterol (Fluticasone/Vilanterol 100/25 Blst.W.Dev) 1 puff INHALE RDAILY [facility] Last Admin: 06/15/24 07:48 Dose: 1 puff Documented By: WILBERT Folic Acid (Folic Acid 1 Mg Tablet) 1 mg PO DAILY [facility] Last Admin: 06/14/24 07:53 Dose: 1 mg Documented By: BEN Gabapentin (Gabapentin 300 Mg Capsule) 300 mg PO TID [facility] Last Admin: 06/14/24 19:55 Dose: 300 mg Documented By: ELISA Glucose (Glucose Gel 15 Gm Gel..Gram.) 15 gm PO Q15M PRN; Protocol PRN Reason: per Hypoglycemia Standing Ord. Heparin Sodium (Porcine) (Heparin Sodium,Porcine 5,000 Unit/Ml Vial) 5,000 unit SUBCUT BID [facility] Last Admin: 06/14/24 19:55 Dose: 5,000 unit Documented By: ELISA Hydralazine HCl (Hydralazine Hcl 50 Mg Tablet) 100 mg PO TID [facility]; Protocol Last Admin: 06/14/24 19:55 Dose: 100 mg Documented By: ELISA Dextrose (D10) 250 mls @ 750 mls/hr IV Q15M PRN; Protocol PRN Reason: per Hypoglycemia Standing Ord. Ceftriaxone Sodium 1 gm/ (Sodium Chloride) 50 mls @ 100 mls/hr IV Q24H [facility] Furosemide 200 mg/ Sodium (Chloride) 100 mls @ 2.5 mls/hr IVCONT .Q24H [facility] Insulin Glargine (Insulin Glargine,Hum.Rec.Anlog 100 Unit/Ml 10 Ml Vial) 20 unit SUBCUT BID [facility] Insulin Human Lispro (Insulin Lispro 100 Unit/Ml 3 Ml Vial) 0 unit SUBCUT QIDACHS [facility]; Protocol Last Admin: 06/14/24 21:45 Dose: 10 unit Documented By: BEBE Insulin Human Lispro (Insulin Lispro 100 Unit/Ml 3 Ml Vial) 7 unit SUBCUT QIDACHS [facility] Insulin Pump (Subcutaneous Insulin Pump) 1 each SUBCUT QIDACHS [facility]; Protocol Last Admin: 06/14/24 21:56 Dose: Not Given Documented By: BEBE Non-Admin Reason: device not in use Magnesium Hydroxide (Milk Of Magnesia 30 Ml Oral.Susp) 30 ml PO DAILY PRN PRN Reason: Constipation Magnesium Oxide ([facility] 400 Mg Tablet) [facility] Last Admin: 06/14/24 16:24 Dose: 400 mg Documented By: ELISA Melatonin (Melatonin 3 Mg Tablet) 6 mg PO BEDTIME PRN PRN Reason: Insomnia Metoprolol Succinate (Metoprolol Succinate Er 100 Mg Tab.Er.24h) 100 mg PO DAILY [facility]; Protocol Last Admin: 06/14/24 07:53 Dose: 100 mg Documented By: BEN Nicotine (Nicotine 14 Mg Patch.Td24) 14 mg TRANSDERMA DAILY [facility] Last Admin: 06/14/24 07:49 Dose: 14 mg Documented By: BEN Omeprazole (Omeprazole 20 Mg Capsule.Dr) 20 mg PO BID@0630,1630 [facility] Last Admin: 06/15/24 06:21 Dose: 20 mg Documented By: BEBE Ondansetron HCl (Ondansetron Hcl 4 Mg/2 Ml Vial) 4 mg IVPUSH Q6H PRN PRN Reason: Nausea and Vomiting Last Admin: 06/13/24 02:15 Dose: 4 mg Documented By: KIMMY Prednisone (Prednisone 20 Mg Tablet) 40 mg PO DAILY [facility] Last Admin: 06/14/24 07:52 Dose: 40 mg Documented By: BEN Sodium Chloride (0.9 % Sodium Chloride Flush 3 Ml Syringe) 3 ml IVFLUSH QSHIFT [facility] Last Admin: 06/14/24 21:49 Dose: 3 ml Documented By: BEBE Sucralfate (Sucralfate 1 Gm Tablet) 1 gm PO QIDACHS [facility] Last Admin: 06/14/24 19:55 Dose: 1 gm Documented By: ELISA Thiamine HCl (Thiamine Hcl 100 Mg Tablet) 100 mg PO DAILY [facility] Last Admin: 06/14/24 07:53 Dose: 100 mg Documented By: BEN Trazodone HCl (Trazodone Hcl 100 Mg Tablet) 100 mg PO BEDTIME [facility] Last Admin: 06/14/24 21:45 Dose: 100 mg Documented By: CASIMAR Labs 06/15/24 05:22 06/15/24 05:22 Labs: Laboratory Results - last 24 hr 06/14/24 06/14/24 06/14/24 11:17 16:58 21:16 MCV MCH MCHC RDW Plt Count MPV Absolute Nucleated RBC Nucleated RBC % (auto) Anion Gap Estim Creat Clear Calc Estimated GFR POC Glucose 444 H* 359 H* 408 H* Fasting Glucose Calcium 06/15/24 06/15/24 05:22 07:24 MCV 76.5 L MCH 24.5 L MCHC 32.1 RDW 19.6 H Plt Count 346 MPV 11.1 Absolute Nucleated RBC 0.000 Nucleated RBC % (auto) 0.0 Anion Gap 17 Estim Creat Clear Calc 39.0 Estimated GFR 36 POC Glucose 437 H* Fasting Glucose 405 H* Calcium 9.5 D Assessment and Plan (1) Acute kidney injury superimposed on CKD: Status: Acute Plan 48M PMH diabetes, hypertension, mood disorder, COPD with chronic hypoxic respiratory failure on 2-3 L O2, alcohol dependence, CHF with preserved EF, presented with shortness of breath Acute on chronic diastolic CHF with acute on chronic hypoxic respiratory failure increasing crackles and o2 requirements will put on lasix drip, monitor closely Acute kidney injury on CKD 3 Likely cardiorenal monitor COPD with acute decompensation Started prednisone, doxy will add rocephin Diabetes with hyperglycemia from steroids Continue insulin - increased basal and bolus Hypertension Hydralazine, amlodipine, Lasix, metoprolol Recent esophageal candidiasis Continue Diflucan Alcohol dependence Monitor CIWA DVT prophylaxis on heparin Full code reason for continued hospitalization: hypoxia Quality Stroke Does the patient have a stroke diagnosis?: No VTE Prior VTE?: No VTE Risk Level:: Medical - moderate - high VTE Device Contraindication: Treatment Not Indicated VTE Drug Contraindication: N/A - Med Ordered
[2024-06-15] MEDS: Nicotine 14 MG PATCH.TD24 TRANSDERMA (08:47)
[2024-06-15] MEDS: 0.9 % Sodium Chloride Flush 3 ML SYRINGE IVFLUSH ×2 (08:47→16:48)
[2024-06-15] MEDS: cefTRIAXone sodium 1 GM in 0.9 % Sodium Chloride 50 ML IV (08:47)
[2024-06-15] MEDS: Insulin Lispro 100 UNIT/ML 3 ML VIAL SUBCUT ×4 (08:48→21:20)
[2024-06-15] MEDS: Heparin Sodium,Porcine 5,000 UNIT/ML VIAL 5000 UNIT SUBCUT ×2 (08:48→21:19)
[2024-06-15] MEDS: predniSONE 20 MG TABLET 40 MG PO (08:49)
[2024-06-15] MEDS: Gabapentin 300 MG CAPSULE PO ×3 (08:49→21:20)
[2024-06-15] MEDS: Escitalopram Oxalate 10 MG TABLET PO (08:49)
[2024-06-15] MEDS: Sucralfate 1 GM TABLET PO ×4 (08:49→21:20)
[2024-06-15] MEDS: Insulin Lispro 100 UNIT/ML 3 ML VIAL 7 UNIT SUBCUT ×4 (08:49→21:21)
[2024-06-15] MEDS: hydrALAZINE HCl 50 MG TABLET 100 MG PO ×3 (08:50→21:28)
[2024-06-15] MEDS: Magnesium Oxide 400 MG TABLET PO ×2 (08:50→16:48)
[2024-06-15] MEDS: amLODIPine Besylate 10 MG TABLET PO (08:50)
[2024-06-15] MEDS: Doxycycline Monohydrate 100 MG CAPSULE PO ×2 (08:50→21:20)
[2024-06-15] MEDS: Folic Acid 1 MG TABLET PO (08:50)
[2024-06-15] MEDS: Fluconazole 100 MG TABLET PO (08:50)
[2024-06-15] MEDS: Ascorbic Acid 250 MG TABLET PO (08:50)
[2024-06-15] MEDS: Metoprolol Succinate ER 100 MG TAB.ER.24H PO (08:50)
[2024-06-15] MEDS: Ferrous Sulfate 324 MG TABLET.DR PO (08:50)
[2024-06-15] MEDS: Thiamine HCL 100 MG TABLET PO (08:50)
[2024-06-15] MEDS: Aspirin Enteric Coated 81 MG TABLET.DR PO (08:50)
[2024-06-15] MEDS: Atorvastatin Calcium 40 MG TABLET PO (08:50)
[2024-06-15] MEDS: Insulin Glargine,Hum.rec.anlog 100 UNIT/ML 10 ML VIAL 20 UNIT SUBCUT ×2 (08:52→21:22)
[2024-06-15] MEDS: Furosemide 200 MG in 0.9 % Sodium Chloride 80 ML IVCONT (10:12)
[2024-06-15 11:18] LABS: ABG Base Excess 2.7 mmol/L; ABG HCO3 26 mmol/L (22-26); ABG pCO2 36 mmHg (32-45); ABG pH 7.46 (7.35-7.45); ABG pO2 61 mmHg (83-108)
[2024-06-15 11:38] LABS: D Dimer High Sensitivity 463 NG/ML
[2024-06-15 11:46] LABS: Anion Gap 13 (12-20); Beta-Hydroxybutyrate 0.08 mmol/L (0.02-0.27); Blood Urea Nitrogen 49 mg/dL (9-16); Calcium 9.4 mg/dL (8.4-10.2); Carbon Dioxide 25 mmol/L (22-29); Chloride 102 mmol/L (96-108); Creatinine Clr Calc Pharmacy 37.7; Estimated Glomerular Filt Rate 34; Glucose Random 470 mg/dL (60-115); Potassium 4.1 mmol/L (3.3-5.1); Sodium 136 mmol/L (135-145)
--- NOTE | 2024-06-15 12:26 | W.PM.CCCN ---
History of Present Illness Data of Consult Service Date: 06/15/24 Requesting physician: Garret Cifuentes Primary Care Provider: Zari Henry MD [facility] Reason for consult: Hypoxia 48-year-old gentleman with underlying history of diabetes mellitus, hypertension, COPD on 2-3 L alcohol abuse, diastolic heart failure admitted on 06/11/2024 with worsening dyspnea and hypoxia in treated empirically for congestive heart failure and COPD exacerbation so far with minimal improvement. Review of Systems Cardiovascular: Cardiovascular: Reports leg edema, Reports dyspnea, Reports dyspnea on exertion and Reports orthopnea Respiratory: Respiratory: Denies cough, Denies excessive phlegm production, Reports dyspnea and Reports dyspnea on exertion PMFSH Past Medical History Medical History KELVIN (acute kidney injury) Hypertension Chronic heart failure with preserved ejection fraction (HFpEF) Acute respiratory failure with hypoxia Congestive heart failure CKD (chronic kidney disease) stage 1, GFR 90 ml/min or greater Depression COPD exacerbation YARELIS (obstructive sleep apnea) CHF exacerbation Hypoxia Acute respiratory failure Uncontrolled hypertension Acute on chronic diastolic (congestive) heart failure Acute on chronic anemia Hyperglycemia due to type 2 diabetes mellitus YARELIS (obstructive sleep apnea) Congestive heart failure Anxiety HLD (hyperlipidemia) Diabetes Hypercholesteremia HTN (hypertension) Asthma PAD (peripheral artery disease) Family History Family History Father Alzheimer disease CAD (coronary artery disease) Surgical History Surgical History History of esophagogastroduodenoscopy S/P angiogram of extremity Social History Social History Household Members: Family Household Members Other:: 3 Housing: Apartment Do you presently have visiting nurse or other home services: Yes Unable to assess alcohol history related to: Unknown Alcohol intake: former Comment: low fall risk Patient Tobacco Use Status: Current everyday Tobacco user Tobacco use type: Cigarette Cigarettes Per Day: 5 Years Smoked: 33 Smoked in Last 30 Days: Yes e-Cigarette/Vaping Use: Never Used Second Hand Smoke Exposure: Yes Use of substances other than those prescribed or required for medical reasons: No Substance Use Type: Former Substance User Currently Displaying Signs/Symptoms of Drug Intoxication Withdrawal: No Have you been hit, kicked, punched, or otherwise hurt by someone within the past year? If so, by whom?: No Do you feel safe in your current relationship?: No Current Relationship Is there a partner from a previous relationship who is making you feel unsafe now?: No Are you made to feel afraid or neglected: No Advance Directives: Yes Advance Directives on File: Yes Advance Directives Date on File: 06/21/21 Do you have a plan to hurt others: No Plan Recently lost weight without trying: No Nutrition Risks: No Nutritional Risk service: No Current occupational status: disabled Meds Allergies Allergy/AdvReac Type Severity Reaction Status Date / Time dulaglutide [From Trulicity] Allergy Unknown Verified 06/11/24 02:20 metformin [METFORMIN] AdvReac Mild DIARRHEA, Verified 06/11/24 02:20 nausea and vomiting Active Medications: Current Medications Acetaminophen (Acetaminophen 325 Mg Tablet) 650 mg PO Q6H PRN PRN Reason: Pain, Mild (Pain Scale 1-3), fever or headache Last Admin: 06/14/24 02:47 Dose: 650 mg Albuterol Sulfate (Albuterol Sulfate 90 Mcg 8 Gm Inhaler) 2 puff INHALE Q4H PRN PRN Reason: bronchospasm Last Admin: 06/11/24 21:59 Dose: 2 puff Amlodipine Besylate (Amlodipine Besylate 10 Mg Tablet) 10 mg PO DAILY [facility]; Protocol Last Admin: 06/15/24 08:50 Dose: 10 mg Ascorbic Acid (Ascorbic Acid 250 Mg Tablet) 250 mg PO DAILY [facility] Last Admin: 06/15/24 08:50 Dose: 250 mg Aspirin (Aspirin Enteric Coated 81 Mg Tablet.) 81 mg PO DAILY [facility] Last Admin: 06/15/24 08:50 Dose: 81 mg Atorvastatin Calcium (Atorvastatin Calcium 40 Mg Tablet) 40 mg PO DAILY [facility] Last Admin: 06/15/24 08:50 Dose: 40 mg Calcium Carbonate (Calcium Carbonate 750 Mg Tab.Chew) 750 mg PO Q4H PRN PRN Reason: Heartburn Doxycycline Monohydrate (Doxycycline Monohydrate 100 Mg Capsule) 100 mg PO Q12H [facility] Last Admin: 06/15/24 08:50 Dose: 100 mg Escitalopram Oxalate (Escitalopram Oxalate 10 Mg Tablet) 10 mg PO DAILY [facility] Last Admin: 06/15/24 08:49 Dose: 10 mg Ferrous Sulfate (Ferrous Sulfate 324 Mg Tablet.) 324 mg PO DAILY [facility] Last Admin: 06/15/24 08:50 Dose: 324 mg Fluconazole (Fluconazole 100 Mg Tablet) 100 mg PO DAILY [facility] Last Admin: 06/15/24 08:50 Dose: 100 mg Fluticasone/Vilanterol (Fluticasone/Vilanterol 100/25 Blst.W.Dev) 1 puff INHALE RDAILY [facility] Last Admin: 06/15/24 07:48 Dose: 1 puff Folic Acid (Folic Acid 1 Mg Tablet) 1 mg PO DAILY [facility] Last Admin: 06/15/24 08:50 Dose: 1 mg Gabapentin (Gabapentin 300 Mg Capsule) 300 mg PO TID [facility] Last Admin: 06/15/24 08:49 Dose: 300 mg Glucose (Glucose Gel 15 Gm Gel..Gram.) 15 gm PO Q15M PRN; Protocol PRN Reason: per Hypoglycemia Standing Ord. Heparin Sodium (Porcine) (Heparin Sodium,Porcine 5,000 Unit/Ml Vial) 5,000 unit SUBCUT BID [facility] Last Admin: 06/15/24 08:48 Dose: 5,000 unit Hydralazine HCl (Hydralazine Hcl 50 Mg Tablet) 100 mg PO TID [facility]; Protocol Last Admin: 06/15/24 08:50 Dose: 100 mg Dextrose (D10) 250 mls @ 750 mls/hr IV Q15M PRN; Protocol PRN Reason: per Hypoglycemia Standing Ord. Ceftriaxone Sodium 1 gm/ (Sodium Chloride) 50 mls @ 100 mls/hr IV Q24H [facility] Last Infusion: 06/15/24 09:33 Dose: Infused Furosemide 200 mg/ Sodium (Chloride) 100 mls @ 2.5 mls/hr IVCONT .Q24H [facility] Last Admin: 06/15/24 10:12 Dose: 5 mg/hr, 2.5 mls/hr Insulin Glargine (Insulin Glargine,Hum.Rec.Anlog 100 Unit/Ml 10 Ml Vial) 20 unit SUBCUT BID [facility] Last Admin: 06/15/24 08:52 Dose: 20 unit Insulin Human Lispro (Insulin Lispro 100 Unit/Ml 3 Ml Vial) 0 unit SUBCUT QIDACHS [facility]; Protocol Last Admin: 06/15/24 08:48 Dose: 10 unit Insulin Human Lispro (Insulin Lispro 100 Unit/Ml 3 Ml Vial) 7 unit SUBCUT QIDACHS [facility] Last Admin: 06/15/24 08:49 Dose: 7 unit Insulin Pump (Subcutaneous Insulin Pump) 1 each SUBCUT QIDACHS [facility]; Protocol Last Admin: 06/15/24 12:25 Dose: Not Given Magnesium Hydroxide (Milk Of Magnesia 30 Ml Oral.Susp) 30 ml PO DAILY PRN PRN Reason: Constipation Magnesium Oxide (Magnesium Oxide 400 Mg Tablet) 400 mg PO BIDPC [facility] Last Admin: 06/15/24 08:50 Dose: 400 mg Melatonin (Melatonin 3 Mg Tablet) 6 mg PO BEDTIME PRN PRN Reason: Insomnia Metoprolol Succinate (Metoprolol Succinate Er 100 Mg Tab.Er.24h) 100 mg PO DAILY [facility]; Protocol Last Admin: 06/15/24 08:50 Dose: 100 mg Nicotine (Nicotine 14 Mg Patch.Td24) 14 mg TRANSDERMA DAILY [facility] Last Admin: 06/15/24 08:47 Dose: 14 mg Omeprazole (Omeprazole 20 Mg Capsule.Dr) 20 mg PO BID@0630,1630 [facility] Last Admin: 06/15/24 06:21 Dose: 20 mg Ondansetron HCl (Ondansetron Hcl 4 Mg/2 Ml Vial) 4 mg IVPUSH Q6H PRN PRN Reason: Nausea and Vomiting Last Admin: 06/13/24 02:15 Dose: 4 mg Sodium Chloride (0.9 % Sodium Chloride Flush 3 Ml Syringe) [address] [facility] Last Admin: 06/15/24 08:47 Dose: 3 ml Sucralfate (Sucralfate 1 Gm Tablet) 1 gm PO QIDACHS [facility] Last Admin: 06/15/24 08:49 Dose: 1 gm Thiamine HCl (Thiamine Hcl 100 Mg Tablet) 100 mg PO DAILY [facility] Last Admin: 06/15/24 08:50 Dose: 100 mg Trazodone HCl (Trazodone Hcl 100 Mg Tablet) 100 mg PO BEDTIME [facility] Last Admin: 06/14/24 21:45 Dose: 100 mg Home Medications ?Medication ?Instructions ?Recorded ?Confirmed ?Last Taken ?Type escitalopram oxalate 10 mg tablet 10 mg PO DAILY 08/01/22 06/11/24 06/10/24 History trazodone 50 mg tablet 100 mg PO BEDTIME 08/01/22 06/11/24 06/10/24 History aspirin 81 mg tablet,delayed 81 mg PO DAILY 10/06/22 06/11/24 06/10/24 History release atorvastatin 40 mg tablet 40 mg PO DAILY 10/06/22 06/11/24 06/10/24 History gabapentin 300 mg capsule 300 mg PO TID 10/06/22 06/11/24 06/10/24 History metoprolol succinate 100 mg 100 mg PO DAILY 10/06/22 06/11/24 06/10/24 History tablet,extended release 24 hr furosemide 40 mg tablet 80 mg PO DAILY 06/26/23 06/11/24 06/10/24 History furosemide 40 mg tablet 40 mg PO BEDTIME 11/24/23 06/11/24 06/10/24 History fluticasone 250 mcg-salmeterol 50 1 ea inhalation BID 12/22/23 06/11/24 06/10/24 History mcg/dose blistr powdr for inhalation (Advair Diskus) albuterol sulfate 90 mcg/actuation 2 puff inhalation Q4H PRN 04/26/24 06/11/24 Unknown History aerosol inhaler bronchospasm insulin lispro 100 unit/mL 1 sliding scale dose subcut TIDAC 04/26/24 06/11/24 06/10/24 History subcutaneous solution amlodipine 5 mg tablet 10 mg PO DAILY 06/02/24 06/11/24 06/10/24 History diclofenac sodium 1 % topical gel 1 g topical QID PRN Pain 06/02/24 06/11/24 Unknown History insulin pump cartridge,automated 06/11/24 06/11/24 Unknown History dose,BT with controller subcutaneous (Omnipod 5 G6 Intro Kit (Gen 5) subcutaneous cartridge with controller) Physical Exam Vital Signs: Vital Signs: Last Vital Signs Temp 98.7 F 06/15/24 12:00 Pulse 81 06/15/24 12:00 Resp 19 06/15/24 12:00 BP 148/74 H 06/15/24 12:00 Pulse Ox 94 06/15/24 12:00 O2 Del Method CPAP 06/15/24 12:00 O2 Flow Rate 9 06/15/24 08:00 FiO2 91 06/14/24 06:50 Oxygen Flow Rate 2 06/11/24 02:16 BMI result Body Mass Index 25.1 Const: General: no acute distress, alert and awake Eyes: Sclerae: sclerae normal EOM: EOMs intact bilaterally Neck: Neck: Yes no lymphadenopathy, Yes trachea midline and Yes supple Resp: Effort & Inspection: normal respiratory effort and no respiratory distress Auscultation: crackles bilateral and diffuse Cardio: Rate: regular rate Rhythm: regular rhythm Heart sounds: no gallops, no murmurs and no rubs GI: Palpation (GI): Soft to palpation and Other GI palpation findings present ( Nontender) Auscultation: normal bowel sounds Extrem: General: No clubbing, No cyanosis and Yes edema (2+ bilateral) Results Labs 06/15/24 05:22 06/15/24 11:19 Labs: Short CBC 06/15/24 Range/Units 05:22 WBC 15.4 H (4.8-10.8) X10*3/uL Hgb 9.3 L (14.0-18.0) g/dl Hct 29.0 L (42.0-52.0) % Plt Count 346 (160-400) X10*3/uL BMP 06/15/24 06/15/24 05:22 11:19 Sodium 135 136 Potassium 4.7 4.1 Chloride 103 102 Carbon Dioxide 20 L 25 BUN 51 H 49 H Creatinine 1.99 H 2.06 H Calcium 9.5 D 9.4 Microbiology Microbiology Results: Microbiology 06/11/24 09:28 Blood - Venous Blood Culture - Preliminary No growth after 48 hours. 06/11/24 09:28 Blood - Venous Blood Culture - Preliminary No growth after 48 hours. Assessment and Plan (1) Acute kidney injury superimposed on CKD: Status: Acute (2) Acute exacerbation of chronic heart failure: Status: Acute (3) Acute and chronic respiratory failure with hypoxia: Status: Resolved Plan Impression: 48-year-old gentleman with underlying at least moderate diastolic CHF, COPD on baseline 2-3 L, hypertension, diabetes mellitus admitted with acute on chronic hypoxic respiratory failure. CT chest with no evidence of lobar infiltrate, but some pulmonary congestion. X-ray today with what appears to be worsening pulmonary congestion. Elevated D-dimer, but no significant tachycardia, though on metoprolol tartrate. Significant lower extremity edema. Respiratory status stable CPAP 8/40%. Recommendations: Rule out pulmonary embolism with V/Q scan. Discontinue systemic glucocorticoids. No evidence of COPD exacerbation. Appears to be in exacerbation of underlying chronic diastolic congestive heart failure. Agree with aggressive diuresis. Check albumin, if low, consider albumin supplementation. At this time does not require intensive care level of service, please notify for re-evaluation, if patient's condition changes. Titrate off CPAP to high-flow nasal cannula. Discussed with Dr. Cifuentes.
[2024-06-15] MEDS: Insulin Regular, Human 100 UNIT/ML 10 ML VIAL 10 UNIT IVPUSH (12:42)
[2024-06-15 12:44] LABS: Alanine Aminotransferase 14 U/L (0-40); Albumin Level 3.4 g/dL (3.5-5.0); Alkaline Phosphatase 119 U/L (39-117); Aspartate Amino Transferase 11 U/L (5-37); Bilirubin Direct < 0.2 mg/dL (0.0-0.5); Bilirubin Total 0.1 mg/dL (0.0-1.0); Total Protein 6.6 g/dL (6.5-8.0)
[2024-06-15 16:12] LABS: Glucose, Whole Blood 276 mg/dL (60-115)
[2024-06-15 20:20] LABS: Glucose, Whole Blood 299 mg/dL (60-115)
[2024-06-15] MEDS: traZODone HCL 100 MG TABLET PO (21:20)
[2024-06-15] MEDS: Melatonin 3 MG TABLET 6 MG PO (21:20)
[2024-06-15 22:16] LABS: ABG Refer to POC result
[2024-06-16] VITALS (14 sets, daily range): BP systolic 132–155; BP diastolic 61–77; PULSE 69–77; RESP 16–20; TEMP 36.2–37.1; O2SAT 90–97
[2024-06-16 07:20] LABS: Hematocrit 29.4 % (42.0-52.0); Hemoglobin 9.5 g/dl (14.0-18.0); Mean Corpuscular HGB Conc 32.3 g/dl (31.0-36.0); Mean Corpuscular Hemoglobin 24.7 pg (27.0-33.0); Mean Corpuscular Volume 76.4 fL (80.0-98.0); Mean Platelet Volume 10.9 fL (9.4-12.4); NRBC Pct Auto 0.1 /100WBC (0.0-0.2); Platelet Count 411 X10*3/uL (160-400); Red Blood Count 3.85 X10*6/uL (4.60-5.80); Red Cell Distribution Width 19.9 % (11.0-16.0); White Blood Count 18.6 X10*3/uL (4.8-10.8)
[2024-06-16 07:35] LABS: Anion Gap 17 (12-20); Blood Urea Nitrogen 51 mg/dL (9-16); Carbon Dioxide 26 mmol/L (22-29); Chloride 103 mmol/L (96-108); Creatinine Clr Calc Pharmacy 45.7; Estimated Glomerular Filt Rate 43; Glucose Fasting 196 mg/dL (60-99); Magnesium 2.1 mg/dL (1.6-2.6); Sodium 142 mmol/L (135-145)
[2024-06-16 07:47] LABS: B Type Natriuretic Peptide 445 pg/mL (<100)
[2024-06-16 07:48] LABS: Calcium 10.3 mg/dL (8.4-10.2)
[2024-06-16] MEDS: Fluticasone/Vilanterol 100/25 BLST.W.DEV 1 PUFF INHALE (07:53)
[2024-06-16] MEDS: cefTRIAXone sodium 1 GM in 0.9 % Sodium Chloride 50 ML IV (08:20)
[2024-06-16] MEDS: Gabapentin 300 MG CAPSULE PO ×3 (08:22→22:16)
[2024-06-16] MEDS: Fluconazole 100 MG TABLET PO (08:22)
[2024-06-16] MEDS: Thiamine HCL 100 MG TABLET PO (08:22)
[2024-06-16] MEDS: Magnesium Oxide 400 MG TABLET PO ×2 (08:22→16:53)
[2024-06-16] MEDS: Folic Acid 1 MG TABLET PO (08:22)
[2024-06-16] MEDS: Aspirin Enteric Coated 81 MG TABLET.DR PO (08:22)
[2024-06-16] MEDS: Ascorbic Acid 250 MG TABLET PO (08:22)
[2024-06-16] MEDS: Escitalopram Oxalate 10 MG TABLET PO (08:22)
[2024-06-16] MEDS: amLODIPine Besylate 10 MG TABLET PO (08:22)
[2024-06-16] MEDS: Atorvastatin Calcium 40 MG TABLET PO (08:22)
[2024-06-16] MEDS: Metoprolol Succinate ER 100 MG TAB.ER.24H PO (08:23)
[2024-06-16] MEDS: hydrALAZINE HCl 50 MG TABLET 100 MG PO ×3 (08:23→22:17)
[2024-06-16] MEDS: Heparin Sodium,Porcine 5,000 UNIT/ML VIAL 5000 UNIT SUBCUT ×2 (08:23→22:18)
[2024-06-16] MEDS: Doxycycline Monohydrate 100 MG CAPSULE PO (08:23)
[2024-06-16] MEDS: Insulin Glargine,Hum.rec.anlog 100 UNIT/ML 10 ML VIAL 20 UNIT SUBCUT ×2 (08:23→22:20)
[2024-06-16] MEDS: Omeprazole 20 MG CAPSULE.DR PO ×2 (08:23→15:31)
[2024-06-16] MEDS: Sucralfate 1 GM TABLET PO ×4 (08:23→22:16)
[2024-06-16] MEDS: Insulin Lispro 100 UNIT/ML 3 ML VIAL 7 UNIT SUBCUT ×4 (08:24→22:19)
[2024-06-16] MEDS: Insulin Lispro 100 UNIT/ML 3 ML VIAL SUBCUT ×3 (08:24→16:53)
[2024-06-16 08:25] LABS: Glucose, Whole Blood 190 mg/dL (60-115)
[2024-06-16] MEDS: Ferrous Sulfate 324 MG TABLET.DR PO (08:29)
[2024-06-16] MEDS: Nicotine 14 MG PATCH.TD24 TRANSDERMA (08:29)
[2024-06-16] MEDS: 0.9 % Sodium Chloride Flush 3 ML SYRINGE IVFLUSH ×3 (08:32→22:21)
[2024-06-16 12:17] LABS: Glucose, Whole Blood 316 mg/dL (60-115)
[2024-06-16] MEDS: Furosemide 200 MG in 0.9 % Sodium Chloride 80 ML IVCONT (13:38)
--- NOTE | 2024-06-16 15:57 | HO.PM.IMPN ---
Subjective Subjective Date of Service: 06/16/24 Interval History: Patient with increasing shortness a breath and oxygen requirements beginning yesterday where repeat x-ray showed what appeared to be worsening pulmonary congestion, and elevated D-dimer.. Yesterday had critical Care consultation which did not find he met criteria for critical care level. Suggested getting V/Q scan to rule out pulmonary embolism, discontinuing systemic glucocorticoids as no evidence of COPD exacerbation, titrating off CPAP to high flow, and checking albumin levels. Patient also was started on a Lasix drip yesterday where he had a-24 hour outflow of 3558 mL. Patient reports today overall feels better, breathing eaqsier, less SOB. Had no acute events overnight. Physical Exam Vital Signs: Vital Signs: Last Vital Signs Temp 97.3 F 06/16/24 15:30 Pulse 69 06/16/24 15:30 Resp 19 06/16/24 15:30 BP 132/73 06/16/24 15:30 Pulse Ox 95 06/16/24 15:30 O2 Del Method Nasal Cannula 06/16/24 15:30 O2 Flow Rate 5 06/16/24 15:30 FiO2 55 06/16/24 07:54 Oxygen Flow Rate 2 06/11/24 02:16 BMI result Body Mass Index 25.1 General: AOx3, no acute distress Resp: Lungs with diffuse crackles bilaterally, diminished. On hi-flow. CVS: S1, S2, RRR GI: +BS, NT, no distention Skin: Warm, dry Neuro: Cranial nerves II-XII grossly intact bilaterally. Motor grossly intact bilaterally Extremities: Trace bilateral edema Psych: Appropriate affect Objective Data Active Medications Acetaminophen (Acetaminophen 325 Mg Tablet) 650 mg PO Q6H PRN PRN Reason: Pain, Mild (Pain Scale 1-3), fever or headache Last Admin: 06/14/24 02:47 Dose: 650 mg Documented By: RAQUEL Albuterol Sulfate (Albuterol Sulfate 90 Mcg 8 Gm Inhaler) 2 puff INHALE Q4H PRN PRN Reason: bronchospasm Last Admin: 06/11/24 21:59 Dose: 2 puff Documented By: ARGENIS Amlodipine Besylate (Amlodipine Besylate 10 Mg Tablet) 10 mg PO DAILY [facility]; Protocol Last Admin: 06/16/24 08:22 Dose: 10 mg Documented By: AUGUSTA Ascorbic Acid (Ascorbic Acid 250 Mg Tablet) 250 mg PO DAILY [facility] Last Admin: 06/16/24 08:22 Dose: 250 mg Documented By: AUGUSTA Aspirin (Aspirin Enteric Coated 81 Mg Tablet.) 81 mg PO DAILY [facility] Last Admin: 06/16/24 08:22 Dose: 81 mg Documented By: AUGUSTA Atorvastatin Calcium (Atorvastatin Calcium 40 Mg Tablet) 40 mg PO DAILY [facility] Last Admin: 06/16/24 08:22 Dose: 40 mg Documented By: AUGUSTA Calcium Carbonate (Calcium Carbonate 750 Mg Tab.Chew) 750 mg PO Q4H PRN PRN Reason: Heartburn Doxycycline Monohydrate (Doxycycline Monohydrate 100 Mg Capsule) 100 mg PO Q12H [facility] Last Admin: 06/16/24 08:23 Dose: 100 mg Documented By: AUGUSTA Escitalopram Oxalate (Escitalopram Oxalate 10 Mg Tablet) 10 mg PO DAILY [facility] Last Admin: 06/16/24 08:22 Dose: 10 mg Documented By: AUGUSTA Ferrous Sulfate (Ferrous Sulfate 324 Mg Tablet.) 324 mg PO DAILY [facility] Last Admin: 06/16/24 08:29 Dose: 324 mg Documented By: AUGUSTA Fluconazole (Fluconazole 100 Mg Tablet) 100 mg PO DAILY [facility] Last Admin: 06/16/24 08:22 Dose: 100 mg Documented By: AUGUSTA Fluticasone/Vilanterol (Fluticasone/Vilanterol 100/25 Blst.W.Dev) 1 puff INHALE RDAILY [facility] Last Admin: 06/16/24 07:53 Dose: 1 puff Documented By: WILBERT Folic Acid (Folic Acid 1 Mg Tablet) 1 mg PO DAILY [facility] Last Admin: 06/16/24 08:22 Dose: 1 mg Documented By: AUGUSTA Gabapentin (Gabapentin 300 Mg Capsule) 300 mg PO TID [facility] Last Admin: 06/16/24 15:32 Dose: 300 mg Documented By: AUGUSTA Glucose (Glucose Gel 15 Gm Gel..Gram.) 15 gm PO Q15M PRN; Protocol PRN Reason: per Hypoglycemia Standing Ord. Heparin Sodium (Porcine) (Heparin Sodium,Porcine 5,000 Unit/Ml Vial) 5,000 unit SUBCUT BID [facility] Last Admin: 06/16/24 08:23 Dose: 5,000 unit Documented By: AUGUSTA Hydralazine HCl (Hydralazine Hcl 50 Mg Tablet) 100 mg PO TID [facility]; Protocol Last Admin: 06/16/24 15:32 Dose: 100 mg Documented By: AUGUSTA Dextrose (D10) 250 mls @ 750 mls/hr IV Q15M PRN; Protocol PRN Reason: per Hypoglycemia Standing Ord. Ceftriaxone Sodium 1 gm/ (Sodium Chloride) 50 mls @ 100 mls/hr IV Q24H [facility] Last Infusion: 06/16/24 08:55 Dose: Infused Documented By: AUGUSTA Furosemide 200 mg/ Sodium (Chloride) 100 mls @ 2.5 mls/hr IVCONT .Q24H [facility] Last Admin: 06/16/24 13:38 Dose: 5 mg/hr, 2.5 mls/hr Documented By: AUGUSTA Insulin Glargine (Insulin Glargine,Hum.Rec.Anlog 100 Unit/Ml 10 Ml Vial) 20 unit SUBCUT BID [facility] Last Admin: 06/16/24 08:23 Dose: 20 unit Documented By: AUGUSTA Insulin Human Lispro (Insulin Lispro 100 Unit/Ml 3 Ml Vial) 0 unit SUBCUT QIDACHS [facility]; Protocol Last Admin: 06/16/24 12:15 Dose: 8 unit Documented By: AUGUSTA Insulin Human Lispro (Insulin Lispro 100 Unit/Ml 3 Ml Vial) 7 unit SUBCUT QIDACHS [facility] Last Admin: 06/16/24 12:15 Dose: 7 unit Documented By: AUGUSTA Insulin Pump (Subcutaneous Insulin Pump) 1 each SUBCUT QIDACHS [facility]; Protocol Last Admin: 06/16/24 15:33 Dose: Not Given Documented By: AUGUSTA Non-Admin Reason: only used for POC results Magnesium Hydroxide (Milk Of Magnesia 30 Ml Oral.Susp) 30 ml PO DAILY PRN PRN Reason: Constipation Magnesium Oxide (Magnesium Oxide 400 Mg Tablet) 400 mg PO BIDPC [facility] Last Admin: 06/16/24 08:22 Dose: 400 mg Documented By: AUGUSTA Melatonin (Melatonin 3 Mg Tablet) 6 mg PO BEDTIME PRN PRN Reason: Insomnia Last Admin: 06/15/24 21:20 Dose: 6 mg Documented By: BEBE Metoprolol Succinate (Metoprolol Succinate Er 100 Mg Tab.Er.24h) 100 mg PO DAILY [facility]; Protocol Last Admin: 06/16/24 08:23 Dose: 100 mg Documented By: AUGUSTA Nicotine (Nicotine 14 Mg Patch.Td24) 14 mg TRANSDERMA DAILY [facility] Last Admin: 06/16/24 08:29 Dose: 14 mg Documented By: AUGUSTA Omeprazole (Omeprazole 20 Mg Capsule.Dr) 20 mg PO BID@0630,1630 [facility] Last Admin: 06/16/24 15:31 Dose: 20 mg Documented By: AUGUSTA Ondansetron HCl (Ondansetron Hcl 4 Mg/2 Ml Vial) 4 mg IVPUSH Q6H PRN PRN Reason: Nausea and Vomiting Last Admin: 06/13/24 02:15 Dose: 4 mg Documented By: ANTOIC Sodium Chloride (0.9 % Sodium Chloride Flush 3 Ml Syringe) 3 ml IVFLUSH QSHIFT [facility] Last Admin: 06/16/24 15:32 Dose: 3 ml Documented By: AUGUSTA Sucralfate (Sucralfate 1 Gm Tablet) 1 gm PO QIDACHS [facility] Last Admin: 06/16/24 15:32 Dose: 1 gm Documented By: AUGUSTA Thiamine HCl (Thiamine Hcl 100 Mg Tablet) 100 mg PO DAILY [facility] Last Admin: 06/16/24 08:22 Dose: 100 mg Documented By: AUGUSTA Trazodone HCl (Trazodone Hcl 100 Mg Tablet) 100 mg PO BEDTIME [facility] Last Admin: 06/15/24 21:20 Dose: 100 mg Documented By: BEBE Labs 06/16/24 06:58 06/16/24 06:58 Labs: Laboratory Results - last 24 hr 06/15/24 06/15/24 06/16/24 16:09 20:17 06:58 MCV 76.4 L MCH 24.7 L MCHC 32.3 RDW 19.9 H Plt Count 411 H MPV 10.9 Absolute Nucleated RBC 0.020 H Nucleated RBC % (auto) 0.1 Anion Gap 17 Estim Creat Clear Calc 45.7 Estimated GFR 43 POC Glucose 276 H 299 H Fasting Glucose 196 H Calcium 10.3 H D Magnesium 2.1 B-Natriuretic Peptide 445 H 06/16/24 06/16/24 08:19 12:13 MCV MCH MCHC RDW Plt Count MPV Absolute Nucleated RBC Nucleated RBC % (auto) Anion Gap Estim Creat Clear Calc Estimated GFR POC Glucose 190 H 316 H Fasting Glucose Calcium Magnesium B-Natriuretic Peptide Microbiology Microbiology Results: Microbiology 06/11/24 09:28 Blood Culture - Final Blood - Venous No growth after 5 days. 06/11/24 09:28 Blood Culture - Final Blood - Venous No growth after 5 days. Assessment and Plan (1) Acute exacerbation of chronic heart failure: Status: Acute Plan Pt is a 48 year old male with a PMH diabetes, hypertension, mood disorder, COPD with chronic hypoxic respiratory failure on 2-3 L O2, alcohol dependence, CHF with preserved EF, presented with shortness of breath Acute hypoxic respiratory failure in the setting of acute on chronic HFpEF Weaned off CPAP, currently on high-flow, wean as tolerated Continue Lasix drip tonight, likely can stop tomorrow morning Closely monitor lytes and kidney function Acute kidney injury on CKD 3 Likely cardiorenal Creatinine improving 2.06 -> 1.70 Treat as above Monitor BMP COPD Pulmonology consulted, do not find patient in acute COPD exacerbation or with pneumonia Will stop systemic glucocorticoids and discontinue antibiotics Continue nebs p.r.n., home inhalers Diabetes with hyperglycemia from steroids Continue insulin - increased basal and bolus Hypertension Hydralazine, amlodipine, Lasix, metoprolol Recent esophageal candidiasis Continue Diflucan Alcohol dependence Monitor CIWA DVT prophylaxis on heparin Full code Attending: Dr. Bowen Reason for continued hospitalization: hypoxia requiring hi-flow and CHF exacerbation requiring Lasix drip Quality Stroke Does the patient have a stroke diagnosis?: No VTE Prior VTE?: No VTE Risk Level:: Medical - moderate - high VTE Device Contraindication: Treatment Not Indicated VTE Drug Contraindication: N/A - Med Ordered
[2024-06-16 16:53] LABS: Glucose, Whole Blood 167 mg/dL (60-115)
[2024-06-16 20:26] LABS: Glucose, Whole Blood 132 mg/dL (60-115)
[2024-06-16] MEDS: traZODone HCL 100 MG TABLET PO (22:16)
[2024-06-17] VITALS (8 sets, daily range): BP systolic 120–148; BP diastolic 64–78; PULSE 69–79; RESP 18–20; TEMP 36.2–37.3; O2SAT 93–97
[2024-06-17] MEDS: Omeprazole 20 MG CAPSULE.DR PO ×2 (06:16→16:42)
[2024-06-17 07:11] LABS: Anion Gap 16 (12-20); Blood Urea Nitrogen 60 mg/dL (9-16); Calcium 9.5 mg/dL (8.4-10.2); Carbon Dioxide 29 mmol/L (22-29); Chloride 101 mmol/L (96-108); Creatinine Clr Calc Pharmacy 38.6; Estimated Glomerular Filt Rate 35; Glucose Random 184 mg/dL (60-115); Potassium 3.7 mmol/L (3.3-5.1); Sodium 142 mmol/L (135-145)
[2024-06-17 07:15] LABS: B Type Natriuretic Peptide 219 pg/mL (<100)
[2024-06-17 07:21] LABS: Glucose, Whole Blood 147 mg/dL (60-115)
[2024-06-17] MEDS: Fluticasone/Vilanterol 100/25 BLST.W.DEV 1 PUFF INHALE (07:25)
[2024-06-17] MEDS: Insulin Lispro 100 UNIT/ML 3 ML VIAL 7 UNIT SUBCUT ×4 (08:03→22:26)
[2024-06-17] MEDS: Insulin Glargine,Hum.rec.anlog 100 UNIT/ML 10 ML VIAL 20 UNIT SUBCUT ×2 (08:03→22:17)
[2024-06-17] MEDS: Nicotine 14 MG PATCH.TD24 TRANSDERMA (08:03)
[2024-06-17] MEDS: Sucralfate 1 GM TABLET PO ×4 (08:04→22:18)
[2024-06-17] MEDS: Magnesium Oxide 400 MG TABLET PO ×2 (08:04→16:42)
[2024-06-17] MEDS: Atorvastatin Calcium 40 MG TABLET PO (08:04)
[2024-06-17] MEDS: Metoprolol Succinate ER 100 MG TAB.ER.24H PO (08:04)
[2024-06-17] MEDS: hydrALAZINE HCl 50 MG TABLET 100 MG PO ×3 (08:04→22:25)
[2024-06-17] MEDS: amLODIPine Besylate 10 MG TABLET PO (08:04)
[2024-06-17] MEDS: Ferrous Sulfate 324 MG TABLET.DR PO (08:04)
[2024-06-17] MEDS: Ascorbic Acid 250 MG TABLET PO (08:04)
[2024-06-17] MEDS: Fluconazole 100 MG TABLET PO (08:05)
[2024-06-17] MEDS: Folic Acid 1 MG TABLET PO (08:05)
[2024-06-17] MEDS: Escitalopram Oxalate 10 MG TABLET PO (08:05)
[2024-06-17] MEDS: Thiamine HCL 100 MG TABLET PO (08:05)
[2024-06-17] MEDS: Heparin Sodium,Porcine 5,000 UNIT/ML VIAL 5000 UNIT SUBCUT ×2 (08:05→22:16)
[2024-06-17] MEDS: Gabapentin 300 MG CAPSULE PO ×3 (08:05→22:18)
[2024-06-17] MEDS: Aspirin Enteric Coated 81 MG TABLET.DR PO (08:05)
[2024-06-17] MEDS: 0.9 % Sodium Chloride Flush 3 ML SYRINGE IVFLUSH ×3 (08:12→22:26)
--- NOTE | 2024-06-17 11:11 | P.PNNP_ITS ---
Subjective Subjective Date of Service: 06/17/24 Interval history: Feels improved. Serum creatinine gone up marginally Physical Exam 2 Vital Signs: Vital Signs: Last Vital Signs Temp 97.8 F 06/17/24 08:00 Pulse 75 06/17/24 08:00 Resp 18 06/17/24 08:00 BP 148/78 H 06/17/24 08:00 Pulse Ox 97 06/17/24 08:00 O2 Del Method Room Air 06/17/24 08:00 O2 Flow Rate 4 06/17/24 03:09 FiO2 55 06/16/24 07:54 Oxygen Flow Rate 2 06/11/24 02:16 BMI result Body Mass Index 25.1 Const: General: no acute distress Orientation/consciousness: patient oriented x3 Eyes: EOM: EOMs intact bilaterally Resp: Auscultation: diminished lung sounds Cardio: Rate: regular rate GI: Palpation (GI): Soft to palpation Neuro: General: patient oriented x3 and moves all extremities Objective Data Labs 06/16/24 06:58 06/17/24 05:55 Labs: Laboratory Results - last 24 hr 06/16/24 06/16/24 06/16/24 12:13 16:49 20:19 Sodium Potassium Chloride Carbon Dioxide Anion Gap BUN Creatinine Estim Creat Clear Calc Estimated GFR POC Glucose 316 H 167 H 132 H Random Glucose Calcium B-Natriuretic Peptide 06/17/24 06/17/24 05:55 07:15 Sodium 142 Potassium 3.7 Chloride 101 Carbon Dioxide 29 Anion Gap 16 BUN 60 H Creatinine 2.01 H Estim Creat Clear Calc 38.6 Estimated GFR 35 POC Glucose 147 H Random Glucose 184 H Calcium 9.5 D B-Natriuretic Peptide 219 H Microbiology Microbiology Results: Microbiology 06/11/24 09:28 Blood - Venous Blood Culture - Final No growth after 5 days. 06/11/24 09:28 Blood - Venous Blood Culture - Final No growth after 5 days. Procedures Date of Service Date of Service: 06/17/24 Assessment & Plan Assessment and plan (1) Acute kidney injury superimposed on CKD: Status: Acute Plan KELVIN due to compromise in renal perfusion with resultant tubular injury No reason to suspect GN/AIN; Getting diuresis; Serum creatinine marginally worse No reason to suspect obstructive uropathy or thrombotic micro angiopathy D/C lasix drip; Start torsemide 60 mg bid and Imdur 30 mg daily Continue current supportive management for now; Labs AM Needs to follow up with me in 2 weeks after hospital D/C Progress Note: Quality Stroke Does the patient have a stroke diagnosis?: No
[2024-06-17 11:27] LABS: Glucose, Whole Blood 346 mg/dL (60-115)
--- NOTE | 2024-06-17 11:46 | MHC.CM.PN ---
EMR REVIEWED, PT IMPROVING AFTER LASIX DRIP, PT NOW N 4L O2 NC WHICH IS CLOSE TO BASELINE HOME O2, NO PLAN FOR DC AT THIS TIME, CM WILL CONT TO FOLLOW DC NEEDS.
[2024-06-17] MEDS: Isosorbide Mononitrate 30 MG TAB.ER.24H PO (12:19)
[2024-06-17] MEDS: Insulin Lispro 100 UNIT/ML 3 ML VIAL SUBCUT ×3 (12:19→22:16)
--- NOTE | 2024-06-17 16:46 | HO.PM.IMPN ---
Subjective Subjective Date of Service: 06/17/24 Interval History: Patient reports much improved breathing, SOB Patient weaned off high-flow, currently on 3L b NC No acute events overnight Labs show bump in creatinine 1.70 -> 2.01 Physical Exam Vital Signs: Vital Signs: Last Vital Signs Temp 97.1 F 06/17/24 11:55 Pulse 74 06/17/24 11:55 Resp 18 06/17/24 11:55 BP 129/67 06/17/24 14:41 Pulse Ox 96 06/17/24 11:55 O2 Del Method Room Air 06/17/24 11:55 O2 Flow Rate 4 06/17/24 03:09 FiO2 55 06/16/24 07:54 Oxygen Flow Rate 2 06/11/24 02:16 BMI result Body Mass Index 25.1 General: AOx3, no acute distress Resp: Lungs with crackles, diminished CVS: S1, S2, RRR GI: +BS, NT, no distention Skin: Warm, dry Neuro: Cranial nerves II-XII grossly intact bilaterally. Motor grossly intact bilaterally Extremities: Trace bilateral pitting edema Psych: Appropriate affect Objective Data Active Medications Acetaminophen (Acetaminophen 325 Mg Tablet) 650 mg PO Q6H PRN PRN Reason: Pain, Mild (Pain Scale 1-3), fever or headache Last Admin: 06/14/24 02:47 Dose: 650 mg Documented By: RAQUEL Albuterol Sulfate (Albuterol Sulfate 90 Mcg 8 Gm Inhaler) 2 puff INHALE Q4H PRN PRN Reason: bronchospasm Last Admin: 06/11/24 21:59 Dose: 2 puff Documented By: ARGENIS Amlodipine Besylate (Amlodipine Besylate 10 Mg Tablet) 10 mg PO DAILY [facility]; Protocol Last Admin: 06/17/24 08:04 Dose: 10 mg Documented By: AUGUSTA Ascorbic Acid (Ascorbic Acid 250 Mg Tablet) 250 mg PO DAILY [facility] Last Admin: 06/17/24 08:04 Dose: 250 mg Documented By: AUGUSTA Aspirin (Aspirin Enteric Coated 81 Mg Tablet.) 81 mg PO DAILY [facility] Last Admin: 06/17/24 08:05 Dose: 81 mg Documented By: AUGUSTA Atorvastatin Calcium (Atorvastatin Calcium 40 Mg Tablet) 40 mg PO DAILY [facility] Last Admin: 06/17/24 08:04 Dose: 40 mg Documented By: AUGUSTA Calcium Carbonate (Calcium Carbonate 750 Mg Tab.Chew) 750 mg PO Q4H PRN PRN Reason: Heartburn Escitalopram Oxalate (Escitalopram Oxalate 10 Mg Tablet) 10 mg PO DAILY [facility] Last Admin: 06/17/24 08:05 Dose: 10 mg Documented By: AUGUSTA Ferrous Sulfate (Ferrous Sulfate 324 Mg Tablet.Dr) 324 mg PO DAILY [facility] Last Admin: 06/17/24 08:04 Dose: 324 mg Documented By: AUGUSTA Fluconazole (Fluconazole 100 Mg Tablet) 100 mg PO DAILY [facility] Last Admin: 06/17/24 08:05 Dose: 100 mg Documented By: AUGUSTA Fluticasone/Vilanterol (Fluticasone/Vilanterol 100/25 Blst.W.Dev) 1 puff INHALE RDAILY [facility] Last Admin: 06/17/24 07:25 Dose: 1 puff Documented By: AMADO Folic Acid (Folic Acid 1 Mg Tablet) 1 mg PO DAILY [facility] Last Admin: 06/17/24 08:05 Dose: 1 mg Documented By: AUGUSTA Gabapentin (Gabapentin 300 Mg Capsule) 300 mg PO TID [facility] Last Admin: 06/17/24 14:41 Dose: 300 mg Documented By: AUGUSTA Glucose (Glucose Gel 15 Gm Gel..Gram.) 15 gm PO Q15M PRN; Protocol PRN Reason: per Hypoglycemia Standing Ord. Heparin Sodium (Porcine) (Heparin Sodium,Porcine 5,000 Unit/Ml Vial) 5,000 unit SUBCUT BID [facility] Last Admin: 06/17/24 08:05 Dose: 5,000 unit Documented By: AUGUSTA Hydralazine HCl (Hydralazine Hcl 50 Mg Tablet) 100 mg PO TID [facility]; Protocol Last Admin: 06/17/24 14:41 Dose: 100 mg Documented By: AUGUSTA Dextrose (D10) 250 mls @ 750 mls/hr IV Q15M PRN; Protocol PRN Reason: per Hypoglycemia Standing Ord. Insulin Glargine (Insulin Glargine,Hum.Rec.Anlog 100 Unit/Ml 10 Ml Vial) 20 unit SUBCUT BID [facility] Last Admin: 06/17/24 08:03 Dose: 20 unit Documented By: AUGUSTA Insulin Human Lispro (Insulin Lispro 100 Unit/Ml 3 Ml Vial) [facility]; Protocol Last Admin: 06/17/24 12:19 Dose: 8 unit Documented By: AUGUSTA Insulin Human Lispro (Insulin Lispro 100 Unit/Ml 3 Ml Vial) [facility] Last Admin: 06/17/24 12:19 Dose: 7 unit Documented By: AUGUSTA Insulin Pump (Subcutaneous Insulin Pump) 1 each SUBCUT [facility]; Protocol Last Admin: 06/17/24 16:38 Dose: Not Given Documented By: AUGUSTA Non-Admin Reason: using hospital insulin Isosorbide Mononitrate (Isosorbide Mononitrate 30 Mg Tab.Er.24h) 30 mg PO DAILY [facility]; Protocol Last Admin: 06/17/24 12:19 Dose: 30 mg Documented By: AUGUSTA Magnesium Hydroxide (Milk Of Magnesia 30 Ml Oral.Susp) 30 ml PO DAILY PRN PRN Reason: Constipation Magnesium Oxide (Magnesium Oxide 400 Mg Tablet) 400 mg PO BIDPC [facility] Last Admin: 06/17/24 16:42 Dose: 400 mg Documented By: AUGUSTA Melatonin (Melatonin 3 Mg Tablet) 6 mg PO BEDTIME PRN PRN Reason: Insomnia Last Admin: 06/15/24 21:20 Dose: 6 mg Documented By: BEBE Metoprolol Succinate (Metoprolol Succinate Er 100 Mg Tab.Er.24h) 100 mg PO DAILY [facility]; Protocol Last Admin: 06/17/24 08:04 Dose: 100 mg Documented By: AUGUSTA Nicotine (Nicotine 14 Mg Patch.Td24) 14 mg TRANSDERMA DAILY [facility] Last Admin: 06/17/24 08:03 Dose: 14 mg Documented By: AUGUSTA Omeprazole (Omeprazole 20 Mg Capsule.Dr) 20 mg PO BID@0630,1630 [facility] Last Admin: 06/17/24 16:42 Dose: 20 mg Documented By: AUGUSTA Ondansetron HCl (Ondansetron Hcl 4 Mg/2 Ml Vial) 4 mg IVPUSH Q6H PRN PRN Reason: Nausea and Vomiting Last Admin: 06/13/24 02:15 Dose: 4 mg Documented By: ANTOIC Sodium Chloride (0.9 % Sodium Chloride Flush 3 Ml Syringe) 3 ml IVFLUSH QSHIFT [facility] Last Admin: 06/17/24 08:12 Dose: 3 ml Documented By: AUGUSTA Sucralfate (Sucralfate 1 Gm Tablet) 1 gm PO QIDACHS [facility] Last Admin: 06/17/24 16:42 Dose: 1 gm Documented By: AUGUSTA Thiamine HCl (Thiamine Hcl 100 Mg Tablet) 100 mg PO DAILY [facility] Last Admin: 06/17/24 08:05 Dose: 100 mg Documented By: AUGUSTA Trazodone HCl (Trazodone Hcl 100 Mg Tablet) 100 mg PO BEDTIME [facility] Last Admin: 06/16/24 22:16 Dose: 100 mg Documented By: LUCEROPSM Labs 06/16/24 06:58 06/17/24 05:55 Labs: Laboratory Results - last 24 hr 06/16/24 06/16/24 06/17/24 16:49 20:19 05:55 Anion Gap 16 Estim Creat Clear Calc 38.6 Estimated GFR 35 POC Glucose 167 H 132 H Random Glucose 184 H Calcium 9.5 D B-Natriuretic Peptide 219 H 06/17/24 06/17/24 07:15 11:17 Anion Gap Estim Creat Clear Calc Estimated GFR POC Glucose 147 H 346 H Random Glucose Calcium B-Natriuretic Peptide Assessment and Plan (1) Acute exacerbation of chronic heart failure: Status: Acute Assessment and Plan: Pt is a 48 year old male with a PMH diabetes, hypertension, mood disorder, COPD with chronic hypoxic respiratory failure on 2-3 L O2, alcohol dependence, CHF with preserved EF, presented with shortness of breath Acute hypoxic respiratory failure in the setting of acute on chronic HFpEF Weaned off CPAP, currently on high-flow, wean as tolerated Continue Lasix drip tonight, likely can stop tomorrow morning Closely monitor lytes and kidney function Acute kidney injury on CKD 3 Likely cardiorenal Creatinine improving 2.06 -> 1.70 Treat as above Monitor BMP COPD Pulmonology consulted, do not find patient in acute COPD exacerbation or with pneumonia Will stop systemic glucocorticoids and discontinue antibiotics Continue nebs p.r.n., home inhalers Diabetes with hyperglycemia from steroids Continue insulin - increased basal and bolus Hypertension Hydralazine, amlodipine, Lasix, metoprolol Recent esophageal candidiasis Continue Diflucan Alcohol dependence Monitor CIWA DVT prophylaxis on heparin Full code Attending: Dr. Ghias Reason for continued hospitalization: hypoxia requiring increased supplemental O2 secondary to acute CHF exacerbation requiring aggressive diuresing. Quality Stroke Does the patient have a stroke diagnosis?: No VTE Prior VTE?: No VTE Risk Level:: Medical - moderate - high VTE Device Contraindication: Treatment Not Indicated VTE Drug Contraindication: N/A - Med Ordered
[2024-06-17 16:52] LABS: Glucose, Whole Blood 238 mg/dL (60-115)
[2024-06-17 20:06] LABS: Glucose, Whole Blood 172 mg/dL (60-115)
[2024-06-17] MEDS: traZODone HCL 100 MG TABLET PO (22:18)
[2024-06-18] VITALS (8 sets, daily range): BP systolic 119–143; BP diastolic 57–69; PULSE 71–81; RESP 14–20; TEMP 36.2–36.8; O2SAT 94–97
[2024-06-18] MEDS: Omeprazole 20 MG CAPSULE.DR PO ×2 (06:06→16:14)
[2024-06-18 06:57] LABS: Anion Gap 14 (12-20); Blood Urea Nitrogen 55 mg/dL (9-16); Calcium 9.1 mg/dL (8.4-10.2); Carbon Dioxide 28 mmol/L (22-29); Chloride 102 mmol/L (96-108); Creatinine Clr Calc Pharmacy 43.1; Estimated Glomerular Filt Rate 40; Glucose Random 306 mg/dL (60-115); Potassium 3.8 mmol/L (3.3-5.1); Sodium 140 mmol/L (135-145)
[2024-06-18] MEDS: Fluticasone/Vilanterol 100/25 BLST.W.DEV 1 PUFF INHALE (07:35)
[2024-06-18 07:40] LABS: Glucose, Whole Blood 306 mg/dL (60-115)
[2024-06-18] MEDS: Fluconazole 100 MG TABLET PO (08:13)
[2024-06-18] MEDS: Atorvastatin Calcium 40 MG TABLET PO (08:13)
[2024-06-18] MEDS: Aspirin Enteric Coated 81 MG TABLET.DR PO (08:13)
[2024-06-18] MEDS: Gabapentin 300 MG CAPSULE PO ×3 (08:13→20:46)
[2024-06-18] MEDS: Thiamine HCL 100 MG TABLET PO (08:13)
[2024-06-18] MEDS: Torsemide 20 MG TABLET 60 MG PO ×2 (08:13→20:46)
[2024-06-18] MEDS: Metoprolol Succinate ER 100 MG TAB.ER.24H PO (08:13)
[2024-06-18] MEDS: Ascorbic Acid 250 MG TABLET PO (08:13)
[2024-06-18] MEDS: Magnesium Oxide 400 MG TABLET PO ×2 (08:13→16:14)
[2024-06-18] MEDS: hydrALAZINE HCl 50 MG TABLET 100 MG PO ×3 (08:13→20:46)
[2024-06-18] MEDS: Sucralfate 1 GM TABLET PO ×4 (08:14→20:46)
[2024-06-18] MEDS: Ferrous Sulfate 324 MG TABLET.DR PO (08:14)
[2024-06-18] MEDS: Folic Acid 1 MG TABLET PO (08:14)
[2024-06-18] MEDS: Isosorbide Mononitrate 30 MG TAB.ER.24H PO (08:14)
[2024-06-18] MEDS: amLODIPine Besylate 10 MG TABLET PO (08:14)
[2024-06-18] MEDS: Escitalopram Oxalate 10 MG TABLET PO (08:14)
[2024-06-18] MEDS: Insulin Lispro 100 UNIT/ML 3 ML VIAL 7 UNIT SUBCUT ×3 (08:20→20:54)
[2024-06-18] MEDS: Insulin Lispro 100 UNIT/ML 3 ML VIAL SUBCUT ×3 (08:20→20:55)
[2024-06-18] MEDS: 0.9 % Sodium Chloride Flush 3 ML SYRINGE IVFLUSH ×2 (08:21→16:16)
[2024-06-18] MEDS: Insulin Glargine,Hum.rec.anlog 100 UNIT/ML 10 ML VIAL 20 UNIT SUBCUT ×2 (08:21→20:56)
[2024-06-18] MEDS: Heparin Sodium,Porcine 5,000 UNIT/ML VIAL 5000 UNIT SUBCUT ×2 (08:22→20:47)
[2024-06-18] MEDS: Nicotine 14 MG PATCH.TD24 TRANSDERMA (08:23)
[2024-06-18 11:41] LABS: Glucose, Whole Blood 249 mg/dL (60-115)
--- NOTE | 2024-06-18 12:47 | P.PNNP_ITS ---
Subjective Subjective Date of Service: 06/18/24 Physical Exam 2 Vital Signs: Vital Signs: Last Vital Signs Temp 97.8 F 06/18/24 11:46 Pulse 71 06/18/24 11:46 Resp 20 06/18/24 11:46 BP 119/57 L 06/18/24 11:46 Pulse Ox 95 06/18/24 11:46 O2 Del Method Nasal Cannula 06/18/24 11:46 O2 Flow Rate 4 06/18/24 11:46 FiO2 55 06/16/24 07:54 Oxygen Flow Rate 2 06/11/24 02:16 BMI result Body Mass Index 25.1 Const: General: no acute distress Orientation/consciousness: patient oriented x3 HEENT: Head: Yes normocephalic Eyes: EOM: EOMs intact bilaterally Neck: Neck: Yes supple Resp: Auscultation: diminished lung sounds Cardio: Rate: regular rate GI: Palpation (GI): Soft to palpation Neuro: General: patient oriented x3 and moves all extremities Objective Data Labs 06/16/24 06:58 06/18/24 06:13 Labs: Laboratory Results - last 24 hr 06/17/24 06/17/24 06/18/24 16:40 20:03 06:13 Sodium 140 Potassium 3.8 Chloride 102 Carbon Dioxide 28 Anion Gap 14 BUN 55 H Creatinine 1.80 H Estim Creat Clear Calc 43.1 Estimated GFR 40 POC Glucose 238 H 172 H Random Glucose 306 H Calcium 9.1 06/18/24 06/18/24 07:36 11:38 Sodium Potassium Chloride Carbon Dioxide Anion Gap BUN Creatinine Estim Creat Clear Calc Estimated GFR POC Glucose 306 H 249 H Random Glucose Calcium Microbiology Microbiology Results: Microbiology 06/11/24 09:28 Blood - Venous Blood Culture - Final No growth after 5 days. 06/11/24 09:28 Blood - Venous Blood Culture - Final No growth after 5 days. Procedures Date of Service Date of Service: 06/18/24 Assessment & Plan Assessment and plan (1) Acute kidney injury superimposed on CKD: Status: Acute Plan KELVIN due to compromise in renal perfusion with resultant tubular injury No reason to suspect GN/AIN; Getting diuresis; No reason to suspect obstructive uropathy or thrombotic micro angiopathy Cr is better Keep O > I Continue current supportive management for now; Time Spent With Patient Time: Total time managing care of this patient today ____ minutes. Progress Note: Quality Stroke Does the patient have a stroke diagnosis?: No
[2024-06-18 16:07] LABS: Glucose, Whole Blood 99 mg/dL (60-115)
--- NOTE | 2024-06-18 16:35 | P.PNIM_ITS ---
Subjective Subjective Date of Service: 06/18/24 Interval History: sob Review of Systems sob improving no fevers Physical Exam 2 Vital Signs: Vital Signs: Last Vital Signs Temp 97.2 F 06/18/24 15:45 Pulse 75 06/18/24 15:45 Resp 18 06/18/24 15:45 BP 134/69 06/18/24 15:45 Pulse Ox 95 06/18/24 15:45 O2 Del Method Nasal Cannula 06/18/24 15:45 O2 Flow Rate 4 06/18/24 15:45 FiO2 55 06/16/24 07:54 Oxygen Flow Rate 2 06/11/24 02:16 BMI result Body Mass Index 25.1 Appearance: Alert.? Oriented X3.?. cvs: rrr, [id number] , no murmur res: air entry improving ,dimnished ,has few scattered cracles. abd: no rebound or guarding ,nt, bs present. ext pulses present , no cyanosis . neuro: axo3 , nonfocal. Objective Data Active Medications Acetaminophen (Acetaminophen 325 Mg Tablet) 650 mg PO Q6H PRN PRN Reason: Pain, Mild (Pain Scale 1-3), fever or headache Last Admin: 06/14/24 02:47 Dose: 650 mg Documented By: RAQUEL Albuterol Sulfate (Albuterol Sulfate 90 Mcg 8 Gm Inhaler) 2 puff INHALE Q4H PRN PRN Reason: bronchospasm Last Admin: 06/11/24 21:59 Dose: 2 puff Documented By: ARGENIS Amlodipine Besylate (Amlodipine Besylate 10 Mg Tablet) 10 mg PO DAILY [facility]; Protocol Last Admin: 06/18/24 08:14 Dose: 10 mg Documented By: MURALI Ascorbic Acid (Ascorbic Acid 250 Mg Tablet) 250 mg PO DAILY [facility] Last Admin: 06/18/24 08:13 Dose: 250 mg Documented By: MURALI Aspirin (Aspirin Enteric Coated 81 Mg Tablet.) 81 mg PO DAILY [facility] Last Admin: 06/18/24 08:13 Dose: 81 mg Documented By: MURALI Atorvastatin Calcium (Atorvastatin Calcium 40 Mg Tablet) 40 mg PO DAILY [facility] Last Admin: 06/18/24 08:13 Dose: 40 mg Documented By: MURALI Calcium Carbonate (Calcium Carbonate 750 Mg Tab.Chew) 750 mg PO Q4H PRN PRN Reason: Heartburn Escitalopram Oxalate (Escitalopram Oxalate 10 Mg Tablet) 10 mg PO DAILY [facility] Last Admin: 06/18/24 08:14 Dose: 10 mg Documented By: MURALI Ferrous Sulfate (Ferrous Sulfate 324 Mg Tablet.Dr) 324 mg PO DAILY [facility] Last Admin: 06/18/24 08:14 Dose: 324 mg Documented By: MURALI Fluconazole (Fluconazole 100 Mg Tablet) 100 mg PO DAILY [facility] Last Admin: 06/18/24 08:13 Dose: 100 mg Documented By: MURALI Fluticasone/Vilanterol (Fluticasone/Vilanterol 100/25 Blst.W.Dev) 1 puff INHALE RDAILY [facility] Last Admin: 06/18/24 07:35 Dose: 1 puff Documented By: NACHO Folic Acid (Folic Acid 1 Mg Tablet) 1 mg PO DAILY [facility] Last Admin: 06/18/24 08:14 Dose: 1 mg Documented By: MURALI Gabapentin (Gabapentin 300 Mg Capsule) 300 mg PO TID [facility] Last Admin: 06/18/24 16:14 Dose: 300 mg Documented By: MURALI Glucose (Glucose Gel 15 Gm Gel..Gram.) 15 gm PO Q15M PRN; Protocol PRN Reason: per Hypoglycemia Standing Ord. Heparin Sodium (Porcine) (Heparin Sodium,Porcine 5,000 Unit/Ml Vial) 5,000 unit SUBCUT BID [facility] Last Admin: 06/18/24 08:22 Dose: 5,000 unit Documented By: MURALI Hydralazine HCl (Hydralazine Hcl 50 Mg Tablet) 100 mg PO TID [facility]; Protocol Last Admin: 06/18/24 16:14 Dose: 100 mg Documented By: MURALI Dextrose (D10) 250 mls @ 750 mls/hr IV Q15M PRN; Protocol PRN Reason: per Hypoglycemia Standing Ord. Insulin Glargine (Insulin Glargine,Hum.Rec.Anlog 100 Unit/Ml 10 Ml Vial) 20 unit SUBCUT BID [facility] Last Admin: 06/18/24 08:21 Dose: 20 unit Documented By: MURALI Insulin Human Lispro (Insulin Lispro 100 Unit/Ml 3 Ml Vial) 0 unit SUBCUT QIDACHS [facility]; Protocol Last Admin: 06/18/24 16:21 Dose: Not Given Documented By: MURALI Non-Admin Reason: No Insulin Coverage Insulin Human Lispro (Insulin Lispro 100 Unit/Ml 3 Ml Vial) 7 unit SUBCUT QIDAS [facility] Last Admin: 06/18/24 12:24 Dose: 7 unit Documented By: MURALI Insulin Pump (Subcutaneous Insulin Pump) 1 each SUBCUT QIDACHS [facility]; Protocol Last Admin: 06/18/24 16:22 Dose: Not Given Documented By: MURALI Non-Admin Reason: No Access Isosorbide Mononitrate (Isosorbide Mononitrate 30 Mg Tab.Er.24h) 30 mg PO DAILY [facility]; Protocol Last Admin: 06/18/24 08:14 Dose: 30 mg Documented By: MURALI Magnesium Hydroxide (Milk Of Magnesia 30 Ml Oral.Susp) 30 ml PO DAILY PRN PRN Reason: Constipation Magnesium Oxide (Magnesium Oxide 400 Mg Tablet) 400 mg PO BIDPC [facility] Last Admin: 06/18/24 16:14 Dose: 400 mg Documented By: MURALI Melatonin (Melatonin 3 Mg Tablet) 6 mg PO BEDTIME PRN PRN Reason: Insomnia Last Admin: 06/15/24 21:20 Dose: 6 mg Documented By: BEBE Metoprolol Succinate (Metoprolol Succinate Er 100 Mg Tab.Er.24h) 100 mg PO DAILY [facility]; Protocol Last Admin: 06/18/24 08:13 Dose: 100 mg Documented By: MURALI Nicotine (Nicotine 14 Mg Patch.Td24) 14 mg TRANSDERMA DAILY [facility] Last Admin: 06/18/24 08:23 Dose: 14 mg Documented By: MURALI Omeprazole (Omeprazole 20 Mg Capsule.) 20 mg PO BID@0630,1630 [facility] Last Admin: 06/18/24 16:14 Dose: 20 mg Documented By: MURALI Ondansetron HCl (Ondansetron Hcl 4 Mg/2 Ml Vial) 4 mg IVPUSH Q6H PRN PRN Reason: Nausea and Vomiting Last Admin: 06/13/24 02:15 Dose: 4 mg Documented By: ANTLEYLA Sodium Chloride (0.9 % Sodium Chloride Flush 3 Ml Syringe) 3 ml IVFLUSH QSHIFT [facility] Last Admin: 06/18/24 16:16 Dose: 3 ml Documented By: MURALI Sucralfate (Sucralfate 1 Gm Tablet) 1 gm PO QIDACHS [facility] Last Admin: 06/18/24 16:14 Dose: 1 gm Documented By: MURALI Thiamine HCl (Thiamine Hcl 100 Mg Tablet) 100 mg PO DAILY [facility] Last Admin: 06/18/24 08:13 Dose: 100 mg Documented By: MURALI Torsemide (Torsemide 20 Mg Tablet) 60 mg PO BID [facility]; Protocol Last Admin: 06/18/24 08:13 Dose: 60 mg Documented By: MURALI Trazodone HCl (Trazodone Hcl 100 Mg Tablet) 100 mg PO BEDTIME [facility] Last Admin: 06/17/24 22:18 Dose: 100 mg Documented By: CASIMAR Labs 06/16/24 06:58 06/18/24 06:13 Labs: Laboratory Results - last 24 hr 06/17/24 06/17/24 06/18/24 16:40 20:03 06:13 Anion Gap 14 Estim Creat Clear Calc 43.1 Estimated GFR 40 POC Glucose 238 H 172 H Random Glucose 306 H Calcium 9.1 06/18/24 06/18/24 06/18/24 07:36 11:38 16:03 Anion Gap Estim Creat Clear Calc Estimated GFR POC Glucose 306 H 249 H 99 Random Glucose Calcium Assessment and Plan (1) Congestive heart failure: Status: Acute Assessment and Plan: 48 year old male with a PMH diabetes, hypertension, mood disorder, COPD with chronic hypoxic respiratory failure on 2-3 L O2, alcohol dependence, CHF with preserved EF, presented with shortness of breath Acute hypoxic respiratory failure in the setting of acute on chronic HFpEF Weaned off CPAP, currently on high-flow, wean as tolerated i/o sofar 5 .2 liter negative Continue Lasix drip tonight, likely can stop tomorrow morning Closely monitor lytes and kidney function Acute kidney injury on CKD 3 Likely cardiorenal Creatinine improving ,today 1.8 Treat as above Monitor BMP COPD Pulmonology consulted, do not find patient in acute COPD exacerbation or with pneumonia Will stop systemic glucocorticoids and discontinue antibiotics Continue nebs p.r.n., home inhalers Diabetes with hyperglycemia from steroids Continue insulin - increased basal and bolus Hypertension Hydralazine, amlodipine, Lasix, metoprolol Recent esophageal candidiasis Continue Diflucan Alcohol dependence Monitor CIWA DVT prophylaxis on heparin Full code Reason for continued hospitalization: hypoxia requiring hi-flow and CHF exacerbation requiring Lasix drip Quality Stroke Does the patient have a stroke diagnosis?: No VTE Prior VTE?: No VTE Risk Level:: Medical - moderate - high VTE Device Contraindication: Treatment Not Indicated VTE Drug Contraindication: N/A - Med Ordered
[2024-06-18 19:54] LABS: Glucose, Whole Blood 238 mg/dL (60-115)
[2024-06-18] MEDS: traZODone HCL 100 MG TABLET PO (20:46)
[2024-06-19] VITALS: BP 125/62; PULSE 76; RESP 20; TEMP 36.6; O2SAT 99
[2024-06-19 03:20] VITALS: BP 138/72; PULSE 72; RESP 20; TEMP 36.4; O2SAT 97
[2024-06-19] MEDS: Omeprazole 20 MG CAPSULE.DR PO (06:15)
[2024-06-19] MEDS: 0.9 % Sodium Chloride Flush 3 ML SYRINGE IVFLUSH ×2 (06:16→08:09)
[2024-06-19 07:03] LABS: Anion Gap 19 (12-20); Blood Urea Nitrogen 53 mg/dL (9-16); Calcium 9.9 mg/dL (8.4-10.2); Carbon Dioxide 25 mmol/L (22-29); Chloride 98 mmol/L (96-108); Creatinine Clr Calc Pharmacy 42.4; Estimated Glomerular Filt Rate 40; Glucose Random 264 mg/dL (60-115); Potassium 4.3 mmol/L (3.3-5.1); Sodium 138 mmol/L (135-145)
[2024-06-19 07:05] LABS: Glucose, Whole Blood 254 mg/dL (60-115)
[2024-06-19] MEDS: Fluticasone/Vilanterol 100/25 BLST.W.DEV 1 PUFF INHALE (07:28)
[2024-06-19 07:30] VITALS: PULSE 72; RESP 20; O2SAT 94
[2024-06-19 07:35] VITALS: BP 150/70; PULSE 76; RESP 20; TEMP 36.8; O2SAT 98
[2024-06-19] MEDS: Nicotine 14 MG PATCH.TD24 TRANSDERMA (08:02)
[2024-06-19] MEDS: Insulin Lispro 100 UNIT/ML 3 ML VIAL SUBCUT ×2 (08:03→11:57)
[2024-06-19] MEDS: Heparin Sodium,Porcine 5,000 UNIT/ML VIAL 5000 UNIT SUBCUT (08:03)
[2024-06-19] MEDS: Insulin Lispro 100 UNIT/ML 3 ML VIAL 7 UNIT SUBCUT ×2 (08:05→11:56)
[2024-06-19] MEDS: Ferrous Sulfate 324 MG TABLET.DR PO (08:06)
[2024-06-19] MEDS: Sucralfate 1 GM TABLET PO ×2 (08:06→11:55)
[2024-06-19] MEDS: Ascorbic Acid 250 MG TABLET PO (08:06)
[2024-06-19] MEDS: Torsemide 20 MG TABLET 60 MG PO (08:06)
[2024-06-19] MEDS: hydrALAZINE HCl 50 MG TABLET 100 MG PO (08:07)
[2024-06-19] MEDS: Isosorbide Mononitrate 30 MG TAB.ER.24H PO (08:07)
[2024-06-19] MEDS: Folic Acid 1 MG TABLET PO (08:08)
[2024-06-19] MEDS: Gabapentin 300 MG CAPSULE PO (08:08)
[2024-06-19] MEDS: amLODIPine Besylate 10 MG TABLET PO (08:08)
[2024-06-19] MEDS: Magnesium Oxide 400 MG TABLET PO (08:08)
[2024-06-19] MEDS: Atorvastatin Calcium 40 MG TABLET PO (08:08)
[2024-06-19] MEDS: Metoprolol Succinate ER 100 MG TAB.ER.24H PO (08:08)
[2024-06-19] MEDS: Fluconazole 100 MG TABLET PO (08:08)
[2024-06-19] MEDS: Thiamine HCL 100 MG TABLET PO (08:08)
[2024-06-19] MEDS: Aspirin Enteric Coated 81 MG TABLET.DR PO (08:08)
[2024-06-19] MEDS: Escitalopram Oxalate 10 MG TABLET PO (08:09)
[2024-06-19] MEDS: Insulin Glargine,Hum.rec.anlog 100 UNIT/ML 10 ML VIAL 20 UNIT SUBCUT (08:20)
[2024-06-19 09:36] VITALS: O2SAT 93; O2SAT 95; O2SAT 96
--- NOTE | 2024-06-19 10:33 | MHC.CM.PN ---
PER HOSPITALIST PT TO BE MEDICALLY CLEARED FOR DC HOME W/RESUMP OF HOME O2 AND CPAP (DAVID), PT'S S.O. FOR TRANSPORT
[2024-06-19 11:00] LABS: Glucose, Whole Blood 293 mg/dL (60-115)
--- NOTE | 2024-06-19 11:02 | P.DS_ITS ---
DS: Providers Provider Date of Service: 06/19/24 Date of admission: 06/11/24 12:52 Date of discharge: 06/19/24 Primary care physician: aZri Henry MD Admitting clinician: Alberto John Attending physician on admission: Alberto John Consults: 06/11/24 13:10 Consult to Nephrology Routine Consulting Provider: [facility] Reason for consultation: delma 06/15/24 11:04 Consult to Critical Care Routine Consulting Provider: Keny Mercer Reason for consultation: hypoxia DS: Diagnosis Discharge Diagnosis (1) Congestive heart failure: Status: Acute DS: Summary Hospital Course Hospital Course: HPI from h&P:48-year-old male with pertinent history of insulin-dependent diabetes mellitus, hypertension, mood disorder, COPD on prn 2-3L O2, alcohol use disorder, congestive heart failure preserved EF who was discharged 2 days ago from our facility due to CHF exacerbation, presented to the ED earlier today for evaluation of dyspnea. He reports last night developed significant dyspnea both at rest and with exertion, orthopnea and PND as well has increase in ble edema. Double his dose of lasix with limited improvement. No fevers, chills, abd pain, n/v/d, dysuria, hematuria, frequency, cough, lightheadedness, chest pain. No one sick at home. Since arival, intermittently tachypneic with O2 sat 91% on 2L. There is a leukocytosis of 12.6, stable microcytic anemia. Creat 2.58, baseline around 1.0, BUN 40, lytes wnl. Lactic acid 1.3. BNP 138. Urinalysis unremarkable except for 1+ protein. Negative for COVID-19, flu, RSV. Chest x- ray shows worsening left midlung atelectasis and interval development of increased perihilar markings possibly viral pneumonia and/or bronchial wall thickening. Mild vascular congestion and left lower lobe developing pneumonia not excluded. EKG shows NSR, rate 80 without any acute ischemic changes. In the ED, has been given 40 mg IV Lasix. 0.5 in nitroglycerin, vancomycin and Zosyn. hospital course : 48 year old male with a PMH diabetes, hypertension, mood disorder, COPD with chronic hypoxic respiratory failure on 2-3 L O2, alcohol dependence, CHF with preserved EF, presented with shortness of breath-admitted for Acute hypoxic respiratory failure in the setting of acute on chronic HFpEF excerebation- required high-flow oxygen, CPAP, IV Lasix, workup including CT chest negative for pneumonia, possible atelectasis, venous duplex negative, perfusion scan negative, blood culture also negative: Patient shortness of breath seems to be improved significantly, off oxygen, diuresed well around 7 L. patient is feeling much better, now at his baseline. CHF education given, if gains weight 2lb or more - need further adjustment of diuretics outpatient. Monitor weights at home. Patient diuretics -keep home dose lasix. Currently patient is on hydralazine, Imdur, metoprolol, amlodipine for CHF/chf. Microcytic anemia: H&H stable between 9-10 range. Patient was started on iron . Consider further monitoring CBC outpatient and further anemia workup outpatient with PCP. Leukocytosis seem reactive to steroid use-workup for pneumonia negative, blood culture negative: Patient is off steroids and antibiotics. Recent esophageal candidiasis: Checked with the patient and pharmacy-seems like completed Diflucan. dm with hyperglycemia: check Hba1c with pcp,continue insulin pump at home. CKD 3: Creatinine is near his baseline. plan: Monitor CBC and BMP, hemoglobin A1c for above. Home dose Lasix continue. CHF education given, if gains weight 2lb or more - need further adjustment of diuretics outpatient. Monitor weights at home. Patient was advised to follow-up BMP and BNP outpatient and as well as follow-up with PCP and Nephrology. Above management discussed with the patient detail length he understand in agreement with the above plan, time spent 70 minute. Time Attestation Total time managing care of this patient today: 40 mintues. Discharge Coordination Time (in mins): 40 min Quality: Safe Use of Opioids Does Pt have an Active Cancer Diagnosis on the Problem List?: No Quality: Stroke Does the patient have a stroke diagnosis?: No Physical Exam Vital Signs: Vital Signs: Last Vital Signs Temp 98.2 F 06/19/24 07:35 Pulse 76 06/19/24 07:35 Resp 20 06/19/24 07:35 BP 150/70 H 06/19/24 07:35 Pulse Ox 98 06/19/24 07:35 O2 Del Method Nasal Cannula 06/19/24 07:35 O2 Flow Rate 2 06/19/24 07:35 FiO2 55 06/16/24 07:54 Oxygen Flow Rate 2 06/11/24 02:16 BMI result Body Mass Index 25.1 Appearance: Alert.? Oriented X3.? not in distress.? Eyes: Pupils equal, round and reactive to light.? Sclera nonicteric.? ENT: Pharynx normal.? Moist mucous membranes,no thrush. cvs: rrr, [id number] , no murmur res: air entry fair , no rales or wheezing. abd: no rebound or guarding ,nt, bs present. ext pulses present , no cyanosis . neuro: axo3 , nonfocal. DS: Data Data Completed and Pending Completed studies during hospitalization [Text1]: Procedures Assistance with Respiratory Ventilation, Less than 24 Consecutive Hours, Continuous Positive Airway Pressure (04/17/23) Detoxification Services for Substance Abuse Treatment (04/26/24) Excision of Esophagus, Via Natural or Artificial Opening Endoscopic, Diagnostic (04/26/24) Excision of Stomach, Pylorus, Via Natural or Artificial Opening Endoscopic, Diagnostic (04/26/24) Introduction of Remdesivir Anti-infective into Peripheral Vein, Percutaneous Approach, [employer] (12/22/23) Labs on day of discharge: Laboratory Results - last 24 hr 06/18/24 06/18/24 06/18/24 11:38 16:03 19:47 Sodium Potassium Chloride Carbon Dioxide Anion Gap BUN Creatinine Estim Creat Clear Calc Estimated GFR POC Glucose 249 H 99 238 H Random Glucose Calcium 06/19/24 06/19/24 06/19/24 06:25 06:58 10:52 Sodium 138 Potassium 4.3 Chloride 98 Carbon Dioxide 25 Anion Gap 19 BUN 53 H Creatinine 1.83 H Estim Creat Clear Calc 42.4 Estimated GFR 40 POC Glucose 254 H 293 H Random Glucose 264 H Calcium 9.9 D Imaging Chest x-ray: Radiologist's impression: ITS Impressions Chest X-Ray 06/11/24 08:15 IMPRESSION: Worsening left midlung atelectasis and interval development of increased perihilar markings, possibly viral pneumonia and/or bronchial wall thickening. Mild central vascular congestion and left lower lobe developing pneumonia not excluded. Underlying hyperinflation. Short-term radiographic follow-up recommended. Chest CT 06/11/24 13:58 IMPRESSION: Bilateral peribronchial increased markings and bronchial wall thickening. Bilateral atelectasis. No consolidations or air bronchograms. Bilateral small pleural effusions. Mediastinal lymphadenopathy. Fleischner guidelines were followed. Chest X-Ray 06/15/24 07:55 IMPRESSION: * There is likely persistent mild diffuse edema of the peribronchovascular interstitium. * There are several scattered streaky linear opacities from atelectasis or infiltrates in each lung. Venous Duplex 06/15/24 13:23 IMPRESSION: * No evidence of deep vein thrombosis in either lower extremity. * There is edema of the subcutaneous tissues of the lower extremities. Pulmonary Perfusion Imaging 06/16/24 11:20 IMPRESSION: Based on perfusion only modified PIOPED 2 criteria, the study is classified as very low probability for pulmonary thromboembolism. echo: Conclusions: - The left ventricular systolic function is normal. The calculated ejection fraction is 62% by biplane method. - Evidence suggests grade II (moderate) diastolic dysfunction. - No obvious valvular pathology seen on this study. Discharge Plan Discharge Anticipated Discharge Date/Time: 06/19/24 10:26 Patient Disposition: Home, Self-Care Discharge Diagnosis: Acute hypoxic respiratory failure in the setting of acute on chronic HFpEF, ckd 3 , Referrals: Zari Henry MD [Primary Care Provider] - 1 Week Discharge Medications: New ferrous sulfate 324 mg (65 mg iron) Tablet,Delayed Release (Dr/Ec) 324 mg PO DAILY Qty: 30 0RF folic acid 1 mg Tablet 1 mg PO DAILY Qty: 30 0RF thiamine mononitrate (vit B1) 100 mg Tablet 100 mg PO DAILY Qty: 30 0RF ascorbic acid (vitamin C) 250 mg Tablet 250 mg PO DAILY Qty: 30 0RF isosorbide mononitrate 30 mg Tablet Extended Release 24 Hr 30 mg PO DAILY Qty: 90 0RF Protocol: Hold for SBP< HOLD for SBP < : 90 Continued hydralazine 100 mg tablet 100 mg PO TID 30 Days Qty: 90 5RF sucralfate 1 gram Tablet 1 g PO QIDACHS Qty: 120 0RF trazodone 50 mg tablet 100 mg PO BEDTIME escitalopram oxalate 10 mg tablet 10 mg PO DAILY atorvastatin 40 mg tablet 40 mg PO DAILY gabapentin 300 mg capsule 300 mg PO TID Hold Instructions: Resume on 11/07/22. metoprolol succinate 100 mg tablet extended release 24 hr 100 mg PO DAILY magnesium oxide 400 mg (241.3 mg magnesium) Tablet 400 mg PO BIDPC Qty: 60 0RF fluticasone propion-salmeterol [Advair Diskus] 250-50 mcg/dose blister with device 1 ea inhalation BID amlodipine 5 mg tablet 10 mg PO DAILY diclofenac sodium 1 % gel 1 g TOPICAL QID PRN (Reason: Pain) Rx Instructions: left chest wall pantoprazole 40 mg tablet,delayed release (DR/EC) 40 mg PO BID 60 Days Qty: 120 0RF nicotine [Nicoderm CQ] 14 mg/24 hr patch 24 hour 1 patch transdermal Q24H Qty: 28 0RF furosemide 40 mg tablet 80 mg PO DAILY Rx Instructions: IN THE MORNING furosemide 40 mg tablet 40 mg PO BEDTIME albuterol sulfate 90 mcg/actuation HFA aerosol inhaler 2 puff inhalation Q4H PRN (Reason: bronchospasm) insulin lispro 100 unit/mL solution 1 sliding scale dose subcut TIDAC Rx Instructions: USES IN INSULIN PUMP (DME) Omnipod 5 G6 Intro Kit (Gen 5) Cartridge SUBCUT aspirin 81 mg tablet,delayed release (DR/EC) 81 mg PO DAILY Discontinued fluconazole 100 mg tablet 100 mg PO DAILY 11 Days Qty: 11 0RF Rx Instructions: END DATE: 06/16/24 Discharge Orders: Discharge Order (Routine); Ordered 06/19/24 Ordered By: Missael Ocasio Diet: Advance to usual diet Activity on Discharge: As tolerated Stand Alone Forms: Patient Portal Discharge page Print Language: Welsh Other Ambulatory Orders: Basic Metabolic Panel (Routine) Timeframe: 1 Week Facility: [facility] - Location: Laboratory Ordered By: Missael Ocasio B Type Natriuretic Peptide (Routine) Timeframe: 1 Week Facility: [facility] - Location: Laboratory Ordered By: Missael Ocasio Complete Blood Count no Diff (Routine) Timeframe: 1 Week Facility: [facility] - Location: Laboratory Ordered By: Missael Ocasio Care Plan Goals: 48 year old male with a H diabetes, hypertension, mood disorder, COPD with chronic hypoxic respiratory failure on 2-3 L O2, alcohol dependence, CHF with preserved EF, presented with shortness of breath-admitted for Acute hypoxic respiratory failure in the setting of acute on chronic HFpEF excerebation- required high-flow oxygen, CPAP, IV Lasix, workup including CT chest negative for pneumonia, possible atelectasis, venous duplex negative, perfusion scan negative, blood culture also negative: Patient shortness of breath seems to be improved significantly, off oxygen, diuresed well around 7 L. patient is feeling much better, now at his baseline. CHF education given, if gains weight 2lb or more - need further adjustment of diuretics outpatient. Monitor weights at home. Patient diuretics -continue home dose lasix. Currently patient is on hydralazine, Imdur, metoprolol, amlodipine for CHF/chf dm with hyperglycemia: check Hba1c with pcp,continue insulin pump at home. CKD 3: Creatinine is near his baseline. Microcytic anemia: Iron added, monitor CBC in 1 week and outpatient workup . Patient was advised to follow-up BMP and BNP outpatient and as well as follow-up with PCP and Nephrology. Health Concerns: as above. Plan of Treatment: as above. Assessment: as above.
[2024-06-19 11:37] VITALS: BP 135/64; PULSE 78; RESP 20; TEMP 36.3; O2SAT 93
== END 2024-06-19 13:30 | disposition home or self-care (01) | DRG 194 ==
LOC: HO.ED 08:23 → HO.EDOVER 13:25 → HO.IMC 14:07
PROVIDERS: Internal Medicine; Student in an Organized Health Care Education/Training Program; Admitting Provider Physician Assistant; Emergency Provider Emergency Medicine; PCP Internal Medicine; Visit Provider Internal Medicine
DX: I13.0 Hypertensive heart and chronic kidney disease with heart failure and stage 1 through stage 4 chronic kidney disease, or unspecified chronic kidney disease (principal); N17.0 Acute kidney failure with tubular necrosis; J96.21 Acute and chronic respiratory failure with hypoxia; B37.81 Candidal esophagitis; E11.22 Type 2 diabetes mellitus with diabetic chronic kidney disease; D50.9 Iron deficiency anemia, unspecified; E11.65 Type 2 diabetes mellitus with hyperglycemia; G47.33 Obstructive sleep apnea (adult) (pediatric); J98.11 Atelectasis; J44.9 Chronic obstructive pulmonary disease, unspecified; F10.20 Alcohol dependence, uncomplicated; Z99.81 Dependence on supplemental oxygen; N18.30 Chronic kidney disease, stage 3 unspecified; I50.33 Acute on chronic diastolic (congestive) heart failure; Z20.822 Contact with and (suspected) exposure to COVID-19; Z79.4 Long term (current) use of insulin; Z79.51 Long term (current) use of inhaled steroids; Z79.82 Long term (current) use of aspirin; Z79.899 Other long term (current) drug therapy
CPT/HCPCS: 0241U; 36415; 36600; 71045; 71046; 71250; 78580; 80048; 80053; 80076; 81001; 81003; 82010; 82570; 82803; 82947; 83540; 83605; 83735; 83880; 84300; 85025; 85027; 85379; 87040; 93005; 93970; 94640; 94660; 94664; 99285; A9540; J0696; J1644; J1940; J2405; J2543

== ENCOUNTER → 2024-06-11 02:12 | Outpatient (BNV) | payer OTHER, SELFPAY | PROVIDERS: Admitting Provider Physician Assistant; Emergency Provider Emergency Medicine; Visit Provider Internal Medicine | DX: R06.02 Shortness of breath (principal) | CPT/HCPCS: 93010 ==

== ENCOUNTER → 2024-06-11 12:52 | Outpatient (BNV) | payer OTHER, SELFPAY | PROVIDERS: Admitting Provider Physician Assistant; Emergency Provider Emergency Medicine; PCP Internal Medicine; Visit Provider Internal Medicine Pulmonary Disease | DX: J96.21 Acute and chronic respiratory failure with hypoxia (principal); I50.9 Heart failure, unspecified; N18.1 Chronic kidney disease, stage 1; N17.9 Acute kidney failure, unspecified | CPT/HCPCS: 99223 ==

== ENCOUNTER → 2024-06-11 12:52 | Outpatient (BNV) | payer OTHER, SELFPAY | PROVIDERS: Admitting Provider Physician Assistant; Emergency Provider Emergency Medicine; Visit Provider Internal Medicine Nephrology | DX: N17.0 Acute kidney failure with tubular necrosis (principal); N18.30 Chronic kidney disease, stage 3 unspecified; I50.30 Unspecified diastolic (congestive) heart failure; D72.829 Elevated white blood cell count, unspecified | CPT/HCPCS: 99223; 99232 ==

== ENCOUNTER → 2024-06-11 12:52 | Outpatient (BNV) | payer OTHER, SELFPAY | PROVIDERS: Admitting Provider Physician Assistant; Emergency Provider Emergency Medicine; Visit Provider Internal Medicine | DX: J96.01 Acute respiratory failure with hypoxia (principal); I50.30 Unspecified diastolic (congestive) heart failure; N17.9 Acute kidney failure, unspecified; N18.9 Chronic kidney disease, unspecified | CPT/HCPCS: 99223; 99232; 99233; 99239 ==

== ENCOUNTER 2024-06-21 19:19 | Inpatient (IN) | payer OTHER, SELFPAY ==
--- NOTE | ~2024-06-21 | CT_ITS ---
EXAMINATION: CT CHEST WITHOUT CONTRAST CLINICAL INFORMATION: Hypoxia. Shortness of breath. COMPARISON: Chest radiograph 06/21/2024. CT chest 06/11/2024. TECHNIQUE: Multidetector volumetric CT imaging of the chest was done. Axial MIP volume rendering provided. Sagittal and coronal reformatted images were obtained. This CT examination was performed using dose optimization techniques as appropriate, variously including the following: *Automated exposure control *Adjustment of mA and/or kV according to patient size (this includes techniques or standardized protocols for targeted exams where dose is matched to indication/reason for exam; i.e. extremities or head) *Use of iterative reconstruction technique DLP: 259 mGy-cm FINDINGS: Lungs and pleura: Moderate multifocal peribronchial wall thickening is present. Mild peribronchial airspace opacities are present primarily within the lingula and right middle lung zone. Findings are slightly more prominent than on the comparison exam of 06/11/2024. Trace bilateral dependent layering pleural effusions are noted. No pneumothoraces. Diffusely scattered enlarged mediastinal lymph nodes are noted including a right paratracheal lymph node measuring 1.6 cm in short axis diameter. A stone lymphadenopathy is unchanged compared with 06/11/2024. Moderate scattered aortic calcifications or cirrhosis. Normal heart size. No pericardial thickening or fluid collections. No axillary lymphadenopathy or thoracic wall inflammatory changes. Mild bilateral apical mass tear. Within the visualized abdomen and pelvis, the adrenal glands are normal in appearance. No suspicious skeletal abnormalities identified. CT/CT chest wo IV con IMPRESSION: *Findings suspicious for bronchitis and peribronchial inflammatory changes with findings most pronounced in the left and right middle lung zones. Findings are slightly progressed in conspicuity compared with 06/11/2024. *Unchanged multifocal reactive appearing mediastinal lymphadenopathy. *Small bilateral pleural effusions unchanged in size compared with 06/11/2024. *Overall, the above findings are suspicious for pulmonary infection. The differential diagnosis includes pulmonary mycobacterium avium complex infection given the bilateral middle lung zone distribution of findings. Electronically signed by: Brett Garcia MD 06/21/2024 11:34 PM EDT
--- NOTE | ~2024-06-21 | CT_ITS ---
EXAMINATION: CT CHEST WITHOUT CONTRAST CLINICAL INFORMATION: Shortness of breath. COMPARISON: CT of the chest June 21, 2024, June 11, 2024, June 03, 2024 TECHNIQUE: Multidetector volumetric CT imaging of the chest was done. Axial MIP volume rendering provided. Sagittal and coronal reformatted images were obtained. This CT examination was performed using dose optimization techniques as appropriate, variously including the following: *Automated exposure control *Adjustment of mA and/or kV according to patient size (this includes techniques or standardized protocols for targeted exams where dose is matched to indication/reason for exam; i.e. extremities or head) *Use of iterative reconstruction technique DLP: 130 mGy-cm FINDINGS: LUNGS: Interval improvement in the airspace opacities since prior CT June 21, 2024. Minor linear scarring are present at both lung bases. Resolved bronchial wall thickening. No evidence of mucus plugging. MEDIASTINUM: Significant improvement in the enlarged mediastinal lymph nodes. Largest lymph node is a precarinal lymph node measuring 1.2 cm. This has reduced in size however since prior CAT scan June 21, 2024. Previous measurement 1.6 cm. All the other lymph nodes are now subcentimeter. CORONARY ARTERY CALCIFICATION: None visualized on this study. PLEURA: Decreasing volume of pleural effusions. There is a trace persistent right pleural effusion and left pleural effusion. AXILLA: No lymphadenopathy. UPPER ABDOMEN: Unremarkable. OSSEOUS STRUCTURES: Unremarkable. CT/CT chest wo IV con IMPRESSION: 1. Interval improvement in the airspace opacities since prior CT June 21, 2024. 2. Significant improvement in the enlarged mediastinal lymph nodes. Largest lymph node is a precarinal lymph node measuring 1.2 cm. All the other lymph nodes are now subcentimeter. 3. Improving bilateral pleural effusions. Residual trace bilateral pleural effusions remain. Fleischner guidelines were followed. Electronically signed by: Seb Ramirez MD 06/27/2024 04:40 PM EDT
--- NOTE | ~2024-06-21 | XR_ITS ---
EXAMINATION: XR CHEST CLINICAL INFORMATION: Shortness of breath. COMPARISON: Chest radiograph dated June 15, 2024. TECHNIQUE: 2 views of the chest were obtained. FINDINGS: The heart is normal in size. There are patchy opacities redemonstrated within the mid lungs bilaterally. An infectious inflammatory process is suspected. No pleural effusion or pneumothorax. No acute osseous abnormality. XR/XR chest 2V IMPRESSION: Patchy opacities are redemonstrated within the mid lungs bilaterally. An infectious/inflammatory process is suspected. Electronically signed by: Scott Boston DO 06/21/2024 09:50 PM EDT
[2024-06-21 19:22] VITALS: BP 132/67; PULSE 91; RESP 22; TEMP 36.9; O2SAT 91; BMI 24.6
--- NOTE | 2024-06-21 19:26 | ECG_ITS ---
Test Reason : SOB Blood Pressure : / mmHG Vent. Rate : 096 BPM Atrial Rate : 096 BPM P-R Int : 138 ms QRS Dur : 080 ms QT Int : 376 ms P-R-T Axes : 048 044 048 degrees QTc Int : 475 ms Normal sinus rhythm Normal ECG When compared with ECG of 11-JUN-2024 02:12, No significant change was found Referred By: iJllian Downey Electronically Signed By:BETO TURNER
--- NOTE | 2024-06-21 19:36 | ED.SOB ---
HPI - SOB/Dyspnea General Chief Complaint: Dyspnea Stated Complaint: low oxygen Time Seen by Provider: 06/21/24 21:18 Source: patient Mode of arrival: EMS Limitations: no limitations History of Present Illness ED Provider: corrie BANGURA Narrative: Patient is 48 years old with frequent admission to the hospital for congestive heart failure admitted 2 times this month does discharge was 2 days ago on 06/19/2024 comes here for increased shortness of breath since a.m. today. Patient went to bathroom and came back desaturated to in 70s . Patient does have history of diabetes hypertension COPD on 2-3 L oxygen as needed, alcohol use disorder, congestive heart failure with preserved ejection fraction, ckd stg 3. Patient patient is supposed to be on oxygen as needed now even sitting in the on the couch and going to the bathroom feels short winded desaturated easily on oxygen pulse ox is 92% Related Data Home Medications ?Medication ?Instructions ?Recorded ?Confirmed escitalopram oxalate 10 mg tablet 10 mg PO DAILY 08/01/22 06/11/24 trazodone 50 mg tablet 100 mg PO BEDTIME 08/01/22 06/11/24 aspirin 81 mg tablet,delayed 81 mg PO DAILY 10/06/22 06/11/24 release atorvastatin 40 mg tablet 40 mg PO DAILY 10/06/22 06/11/24 gabapentin 300 mg capsule 300 mg PO TID 10/06/22 06/11/24 metoprolol succinate 100 mg 100 mg PO DAILY 10/06/22 06/11/24 tablet,extended release 24 hr furosemide 40 mg tablet 80 mg PO DAILY 06/26/23 06/11/24 furosemide 40 mg tablet 40 mg PO BEDTIME 11/24/23 06/11/24 fluticasone 250 mcg-salmeterol 50 1 ea inhalation BID 12/22/23 06/11/24 mcg/dose blistr powdr for inhalation (Advair Diskus) albuterol sulfate 90 mcg/actuation 2 puff inhalation Q4H PRN 04/26/24 06/11/24 aerosol inhaler bronchospasm insulin lispro 100 unit/mL 1 sliding scale dose subcut TIDAC 04/26/24 06/11/24 subcutaneous solution amlodipine 5 mg tablet 10 mg PO DAILY 06/02/24 06/11/24 diclofenac sodium 1 % topical gel 1 g topical QID PRN Pain 06/02/24 06/11/24 insulin pump cartridge,automated 06/11/24 06/11/24 dose,BT with controller subcutaneous (Omnipod 5 G6 Intro Kit (Gen 5) subcutaneous cartridge with controller) Previous Rx's ?Medication ?Instructions ?Recorded magnesium oxide 400 mg (241.3 mg 400 mg PO BIDPC #60 tabs 08/20/22 magnesium) tablet sucralfate 1 gram tablet 1 g PO QIDACHS #120 tabs 09/10/22 hydralazine 100 mg tablet 100 mg PO TID 30 days #90 tabs 05/09/23 pantoprazole 40 mg tablet,delayed 40 mg PO BID 60 days #120 tabs 06/06/24 release nicotine 14 mg/24 hr daily 1 patch transdermal Q24H #28 ea 06/09/24 transdermal patch (Nicoderm CQ) ascorbic acid (vitamin C) 250 mg 250 mg PO DAILY #30 tabs 06/19/24 tablet ferrous sulfate 324 mg (65 mg 324 mg PO DAILY #30 tabs 06/19/24 iron) tablet,delayed release folic acid 1 mg tablet 1 mg PO DAILY #30 tabs 06/19/24 isosorbide mononitrate 30 mg 30 mg PO DAILY #90 tabs 06/19/24 tablet,extended release 24 hr thiamine mononitrate (vit B1) 100 100 mg PO DAILY #30 tabs 06/19/24 mg tablet Allergies Allergy/AdvReac Type Severity Reaction Status Date / Time dulaglutide [From [facility]] Allergy Unknown Verified 06/21/24 19:27 metformin [METFORMIN] AdvReac Mild DIARRHEA, Verified 06/21/24 19:27 nausea and vomiting Review of Systems Review of Systems: Yes all other systems are reviewed and are negative [facility] Past Medical History Medical History KELVIN (acute kidney injury) Hypertension Chronic heart failure with preserved ejection fraction (HFpEF) Acute respiratory failure with hypoxia Congestive heart failure CKD (chronic kidney disease) stage 1, GFR 90 ml/min or greater Depression COPD exacerbation YARELIS (obstructive sleep apnea) CHF exacerbation Hypoxia Acute respiratory failure Uncontrolled hypertension Acute on chronic diastolic (congestive) heart failure Acute on chronic anemia Hyperglycemia due to type 2 diabetes mellitus YARELIS (obstructive sleep apnea) Congestive heart failure Anxiety HLD (hyperlipidemia) Diabetes Hypercholesteremia HTN (hypertension) Asthma PAD (peripheral artery disease) Surgical History History of esophagogastroduodenoscopy S/P angiogram of extremity Family History Family History Father Alzheimer disease CAD (coronary artery disease) Social History Social History Household Members: Family Household Members Other:: 3 Housing: Apartment Do you presently have visiting nurse or other home services: Yes Unable to assess alcohol history related to: Unknown Alcohol intake: former Comment: pt is independent in room Patient Tobacco Use Status: Tobacco use Unknown Tobacco use type: Cigarette Cigarettes Per Day: 5 Years Smoked: 33 Smoked in Last 30 Days: Yes e-Cigarette/Vaping Use: Never Used Second Hand Smoke Exposure: Yes Substance Use Type: Marijuana Advance Directives: Yes Advance Directives on File: Yes Advance Directives Date on File: 06/21/21 Do you have a plan to hurt others: No Plan Nutrition Risks: No Nutritional Risk service: No Current occupational status: disabled Physical Exam Vital Signs: Vital Signs: Last Vital Signs Temp 98.2 F 06/22/24 06:11 Pulse 80 06/22/24 06:11 Resp 20 06/22/24 06:11 BP 116/63 06/22/24 06:11 Pulse Ox 90 L 06/22/24 06:11 O2 Del Method Nasal Cannula 06/22/24 06:11 O2 Flow Rate 2 06/22/24 06:11 BMI result Body Mass Index 24.6 Appearance: Alert. Oriented X3. Mod respiratory distress desaturating easily to 85% on 3 L of oxygen with slight movement Eyes: No pallor or icterus ENT: Pharynx normal. Oral Mucosa moist Neck: Normal inspection. Neck supple. CVS: Normal heart rate and rhythm. Pulses normal. Respiratory: No respiratory distress. Equal air entry bilateral, bilateral fine crackles Abdomen: Soft and nontender. Bowel sounds are present, no mass palpable, no CVA tenderness Skin: Skin warm and dry. Normal skin color. Normal skin turgor. Extremities: No lower extremity edema. No calf tenderness Neuro: Oriented X 3. No motor deficit. Course Course Course Narrative: This is a Rapid Medical Examination (RME) performed by Nelli Downey PA-C in triage. Full HPI, ROS, assessment and treatment plan per primary provider in the Main ED. 48 yo male hx of CHF, COPD, asthma, stage 3 CKD here for sob x2 days, SPO2 70-80s at home. recently admitted to hospital for dyspnea. admits to lower back pain. denies fever, chills, chest pain lungs clear. satting around 88-90% on RA. Plan: labs, ekg, cxr, viral testing, ed bronch protocol ordered Medications Administered Generic Name Dose Route Start Last Admin Trade Name Freq PRN Reason Stop Dose Admin Piperacillin Sod/Tazobactam 100 mls @ 200 mls/hr 06/22/24 00:00 06/22/24 02:07 Sod 4.5 gm/ Sodium Chloride IV Infused Q8H DIONISIO Infusion Sodium Chloride 3 ml 06/22/24 00:00 06/22/24 00:46 0.9 % Sodium Chloride Flush 3 Ml Syringe IVFLUSH Not Given QSHIFT DIONISIO Discontinued Medications Generic Name Dose Route Start Last Admin Trade Name Freq PRN Reason Stop Dose Admin Albuterol Sulfate 5 mg/ 0 mg 06/21/24 19:41 06/21/24 19:46 Albuterol/Ipratropium 3 ml INHALE 06/21/24 19:42 1 each ONCE ONE Administration Furosemide 40 mg 06/21/24 21:37 06/21/24 22:17 Furosemide 40 Mg/4 Ml Vial IVPUSH 06/21/24 21:38 40 mg ONCE ONE Administration Protocol Ceftriaxone Sodium 1 gm/ 50 mls @ 100 mls/hr 06/21/24 22:35 06/22/24 01:04 Sodium Chloride IV 06/21/24 23:04 Infused ONCE ONE Infusion Vancomycin HCl 1,000 mg/ 270 mls @ 270 mls/hr 06/21/24 23:42 06/22/24 00:44 Sodium Chloride IV 06/22/24 00:41 Not Given ONCE ONE Sodium Chloride 500 mls @ 500 mls/hr 06/21/24 23:45 06/22/24 01:44 Ns IV 06/22/24 00:44 Infused .Q1H DIONISIO Infusion Vancomycin HCl 1,500 mg/ 500 mls @ 333.333 mls/hr 06/22/24 00:15 06/22/24 03:30 Sodium Chloride IV 06/22/24 01:44 Infused ONCE ONE Infusion Medical Decision Making Medical Decision Making [facility] Narrative: Patient is 48 years old with frequent admission to the hospital for congestive heart failure admitted 2 times this month does discharge was 2 days ago on 06/19/2024 comes here for increased shortness of breath since a.m. today continue to be hypoxic desaturating to 85% on 3 L will admit patient for CHF and atypical pneumonia Differential Diagnosis Differential Diagnoses: The differential diagnosis associated with the presentation includes CHF/chronic lung disease/pneumonia/atypical viral infection Admission/Observation Consideration of admission/observation: Escalation of care including admission/observation considered Consult Healthcare Provider Management of the patient was discussed with: Hospitalist Lab Data [facility] Lab Attestation statement: I reviewed the patient's lab results. 06/22/24 04:50 06/22/24 04:50 Labs: Lab Results 06/21/24 06/21/24 06/21/24 Range/Units 20:08 20:13 20:20 WBC 19.1 H (4.8-10.8) X10*3/uL RBC 3.69 L (4.60-5.80) X10*6/uL Hgb 8.9 L (14.0-18.0) g/dl Hct 28.5 L (42.0-52.0) % MCV 77.2 L (80.0-98.0) fL MCH 24.1 L (27.0-33.0) pg MCHC 31.2 (31.0-36.0) g/dl RDW 19.9 H (11.0-16.0) % Plt Count 446 H (160-400) X10*3/uL MPV 10.2 (9.4-12.4) fL Immature Gran % (Auto) 1.2 H (0.0-0.4) % Neut % (Auto) 74.0 H (45-73) % Lymph % (Auto) 13.7 L (20-40) % [place] % (Auto) 8.0 (2-11) % Eos % (Auto) 2.7 (0-4) % Baso % (Auto) 0.4 (0-2) % Lymph # (Auto) 2.6 (1.2-4.9) X10*3/uL [place] # (Auto) 1.5 H (0.1-1.2) X10*3/uL Eos # (Auto) 0.5 H (0.0-0.4) X10*3/uL Baso # (Auto) 0.1 (0.0-0.2) X10*3/uL Abs Immat Gran (auto) 0.22 H (0.00-0.03) X10*3/uL Absolute Neuts (auto) 14.2 H (2.0-8.3) x10*3/uL Absolute Nucleated RBC 0.020 H (0.0-0.012) X10*3/uL Nucleated RBC % (auto) 0.1 (0.0-0.2) /100WBC Smear Tech's Comments VERIFIED PT 11.2 (11.1-13.3) SEC INR 0.9 (0.9-1.1) VBG pH 7.53 H (7.32-7.43) VBG pCO2 29 mmHg VBG pO2 80 mmHg VBG HCO3 25 (22-26) mmol/L VBG O2 Saturation 97.0 % VBG Base Excess 3.1 mmol/L Sodium 141 (135-145) mmol/L Potassium 3.7 (3.3-5.1) mmol/L Chloride 102 (96-108) mmol/L Carbon Dioxide 24 (22-29) mmol/L Anion Gap 19 (12-20) BUN 50 H (9-16) mg/dL Creatinine 2.23 H (0.5-1.4) mg/dL Estim Creat Clear Calc 34.8 Estimated GFR 31 Random Glucose 166 H (60-115) mg/dL Calcium 9.1 D (8.4-10.2) mg/dL Magnesium 2.3 (1.6-2.6) mg/dL Total Bilirubin 0.3 (0.0-1.0) mg/dL AST 13 (5-37) U/L ALT 17 (0-40) U/L Alkaline Phosphatase 115 (39-117) U/L Troponin I High Sens 5.7 (<3.5-35.0) ng/L B-Natriuretic Peptide 282 H (<100) pg/mL Total Protein 7.2 (6.5-8.0) g/dL Albumin 3.9 (3.5-5.0) g/dL Influenza Type A (PCR) NEGATIVE (Negative) Influenza Type B (PCR) NEGATIVE (Negative) RSV RNA Qual (PCR) NEGATIVE (Negative) SARS-CoV-2 RNA (RT-PCR) NEGATIVE (Negative) Independent Interpretation I performed an independent interpretation of an: EKG and CT Scan Interpretation: Normal sinus rhythm heart rate 96 beats per minute normal interval normal axis no acute ST-T changes no acute ischemia Radiology Impression Discussion of test interpretation with radiology: I have reviewed the radiologist's reading. Radiologist Impression: CT/CT chest wo IV con IMPRESSION: *Findings suspicious for bronchitis and peribronchial inflammatory changes with findings most pronounced in the left and right middle lung zones. Findings are slightly progressed in conspicuity compared with 06/11/2024. *Unchanged multifocal reactive appearing mediastinal lymphadenopathy. *Small bilateral pleural effusions unchanged in size compared with 06/11/2024. *Overall, the above findings are suspicious for pulmonary infection. The differential diagnosis includes pulmonary mycobacterium avium complex infection given the bilateral middle lung zone distribution of findings. Critical Care Time Critical Care Time Critical Care Time: Yes Total Critical Care Time: 60 Attestation: The patient was critically ill with a high probability of imminent or life threatening deterioration. I spent greater than 65???minutes of discontinuous time evaluating the patient,delivering critical care at the bedside, discussing and evaluating pertinent data with consultants. Critical care time does not include time spent performing separately billable procedures or teaching. Total time spent performing critical care was 60???minutes. Discharge Plan Discharge Clinical Impression: Hypoxia, Congestive heart failure, Acute kidney injury superimposed on CKD, Acute bronchitis, Pneumonia Patient Disposition: Admitted As Inpatient
[2024-06-21 19:46] VITALS: PULSE 86; RESP 22; O2SAT 91
[2024-06-21] MEDS: Albuterol Sulfate 5 MG, Albuterol/Iprat 2.5/0.5MG 3 ML 3 ML INHALE (19:46)
[2024-06-21 20:21] LABS: Basophils Absolute Auto 0.1 X10*3/uL (0.0-0.2); Basophils Percent Auto 0.4 % (0-2); Eosinophils Absolute Auto 0.5 X10*3/uL (0.0-0.4); Eosinophils Percent Auto 2.7 % (0-4); Hematocrit 28.5 % (42.0-52.0); Hemoglobin 8.9 g/dl (14.0-18.0); Imm Gran Abs Auto 0.22 X10*3/uL (0.00-0.03); Imm Gran Pct Auto 1.2 % (0.0-0.4); Lymphocytes Absolute Auto 2.6 X10*3/uL (1.2-4.9); Lymphocytes Percent Auto 13.7 % (20-40); MANUAL DIFF FLAG SCAN; Mean Corpuscular HGB Conc 31.2 g/dl (31.0-36.0); Mean Corpuscular Hemoglobin 24.1 pg (27.0-33.0); Mean Corpuscular Volume 77.2 fL (80.0-98.0); Mean Platelet Volume 10.2 fL (9.4-12.4); Monocytes Absolute Auto 1.5 X10*3/uL (0.1-1.2); NRBC Pct Auto 0.1 /100WBC (0.0-0.2); Neutrophils Absolute Auto 14.2 x10*3/uL (2.0-8.3); Platelet Count 446 X10*3/uL (160-400); Red Blood Count 3.69 X10*6/uL (4.60-5.80); Red Cell Distribution Width 19.9 % (11.0-16.0); SCAN SMEAR FLAG 1; White Blood Count 19.1 X10*3/uL (4.8-10.8)
[2024-06-21 20:23] LABS: VBG Base Excess 3.1 mmol/L; VBG HCO3 25 mmol/L (22-26); VBG pCO2 29 mmHg; VBG pH 7.53 (7.32-7.43); VBG pO2 80 mmHg
[2024-06-21 20:23] LABS: Venous Blood Gas Refer to POC result
[2024-06-21 20:36] LABS: INTERNATIONAL NORM RATIO 0.9 (0.9-1.1); Prothrombin Time 11.2 SEC (11.1-13.3)
[2024-06-21 20:43] LABS: Alanine Aminotransferase 17 U/L (0-40); Albumin Level 3.9 g/dL (3.5-5.0); Alkaline Phosphatase 115 U/L (39-117); Anion Gap 19 (12-20); Aspartate Amino Transferase 13 U/L (5-37); Bilirubin Total 0.3 mg/dL (0.0-1.0); Blood Urea Nitrogen 50 mg/dL (9-16); Calcium 9.1 mg/dL (8.4-10.2); Carbon Dioxide 24 mmol/L (22-29); Chloride 102 mmol/L (96-108); Creatinine Clr Calc Pharmacy 34.8; Estimated Glomerular Filt Rate 31; Glucose Random 166 mg/dL (60-115); Magnesium 2.3 mg/dL (1.6-2.6); Potassium 3.7 mmol/L (3.3-5.1); SLIDE REVIEW VERIFIED; Sodium 141 mmol/L (135-145); Total Protein 7.2 g/dL (6.5-8.0)
[2024-06-21 20:47] LABS: B Type Natriuretic Peptide 282 pg/mL (<100)
[2024-06-21 20:50] LABS: Troponin-I High Sensitivity 5.7 ng/L (<3.5-35.0)
[2024-06-21 21:00] LABS: Influenza A PCR NEGATIVE (Negative); Influenza B PCR NEGATIVE (Negative); Resp Syncy Virus RNA Qual PCR NEGATIVE (Negative); SARS COV2 PCR INHOUSE NEGATIVE (Negative)
[2024-06-21 22:14] VITALS: BP 106/58; PULSE 88; RESP 16; TEMP 37.3; O2SAT 97
[2024-06-21] MEDS: Furosemide 40 MG/4 ML VIAL IVPUSH (22:17)
--- NOTE | 2024-06-21 23:45 | PM.IMHP ---
History of Present Illness Date of Service: 06/21/24 Chief Complaint: Dyspnea This is a 48-year-old male with pertinent history of insulin-dependent diabetes mellitus, hypertension, mood disorder, COPD with chronic hypoxia on prn home night time O2, alcohol use disorder, congestive heart failure with preserved EF, esophagitis with gastroesophageal reflux disease, alcohol use disorder, CKD stage 3 who presents to the emergency department for evaluation of dyspnea. Of note, patient was recently admitted on 06/11 with decompensated congestive heart failure and discharged on 06/19. Patient states he continued to be dyspneic at home. He tried to go to his bathroom and came back extremely short of breath with SpO2 in the 70s. Also reports productive cough. No wheezing. No orthopnea or dyspnea. States he does not use oxygen in the daytime and only uses it as needed at night. No chest pain, palpitations, abdominal pain, changes in urinary or bowel habits. In the emergency department, patient was found to be hypoxic and imaging with bilateral pneumonia. Patient was given empiric IV antibiotics and placed on supplemental oxygen Review of Systems Constitutional: Constitutional: Reports fatigue, Reports malaise and Reports weakness Cardiovascular: Cardiovascular: Reports dyspnea on exertion Respiratory: Respiratory: Reports cough and Reports dyspnea on exertion Neurologic: Reports weakness Endocrine: Endocrine: Reports fatigue [facility] Medical History KELVIN (acute kidney injury) Hypertension Chronic heart failure with preserved ejection fraction (HFpEF) Acute respiratory failure with hypoxia Congestive heart failure CKD (chronic kidney disease) stage 1, GFR 90 ml/min or greater Depression COPD exacerbation YARELIS (obstructive sleep apnea) CHF exacerbation Hypoxia Acute respiratory failure Uncontrolled hypertension Acute on chronic diastolic (congestive) heart failure Acute on chronic anemia Hyperglycemia due to type 2 diabetes mellitus YARELIS (obstructive sleep apnea) Congestive heart failure Anxiety HLD (hyperlipidemia) Diabetes Hypercholesteremia HTN (hypertension) Asthma PAD (peripheral artery disease) Family History Father Alzheimer disease CAD (coronary artery disease) Surgical History History of esophagogastroduodenoscopy S/P angiogram of extremity Social History Household Members: Family Household Members Other:: 3 Housing: Apartment Do you presently have visiting nurse or other home services: Yes Unable to assess alcohol history related to: Unknown Alcohol intake: former Comment: pt is independent in room Patient Tobacco Use Status: Current everyday Tobacco user Tobacco use type: Cigarette Cigarettes Per Day: 5 Years Smoked: 33 Smoked in Last 30 Days: Yes e-Cigarette/Vaping Use: Never Used Second Hand Smoke Exposure: Yes Substance Use Type: Marijuana Advance Directives: Yes Advance Directives on File: Yes Advance Directives Date on File: 06/21/21 Do you have a plan to hurt others: No Plan service: No Current occupational status: disabled Meds Allergies Allergy/AdvReac Type Severity Reaction Status Date / Time dulaglutide [From [facility]] Allergy Unknown Verified 06/21/24 19:27 metformin [METFORMIN] AdvReac Mild DIARRHEA, Verified 06/21/24 19:27 nausea and vomiting Home Medications ?Medication ?Instructions ?Recorded ?Confirmed ?Last Taken ?Type escitalopram oxalate 10 mg tablet 10 mg PO DAILY 08/01/22 06/11/24 06/10/24 History trazodone 50 mg tablet 100 mg PO BEDTIME 08/01/22 06/11/24 06/10/24 History aspirin 81 mg tablet,delayed 81 mg PO DAILY 10/06/22 06/11/24 06/10/24 History release atorvastatin 40 mg tablet 40 mg PO DAILY 10/06/22 06/11/24 06/10/24 History gabapentin 300 mg capsule 300 mg PO TID 10/06/22 06/11/24 06/10/24 History metoprolol succinate 100 mg 100 mg PO DAILY 10/06/22 06/11/24 06/10/24 History tablet,extended release 24 hr furosemide 40 mg tablet 80 mg PO DAILY 06/26/23 06/11/24 06/10/24 History furosemide 40 mg tablet 40 mg PO BEDTIME 11/24/23 06/11/24 06/10/24 History fluticasone 250 mcg-salmeterol 50 1 ea inhalation BID 12/22/23 06/11/24 06/10/24 History mcg/dose blistr powdr for inhalation (Advair Diskus) albuterol sulfate 90 mcg/actuation 2 puff inhalation Q4H PRN 04/26/24 06/11/24 Unknown History aerosol inhaler bronchospasm insulin lispro 100 unit/mL 1 sliding scale dose subcut TIDAC 04/26/24 06/11/24 06/10/24 History subcutaneous solution amlodipine 5 mg tablet 10 mg PO DAILY 06/02/24 06/11/24 06/10/24 History diclofenac sodium 1 % topical gel 1 g topical QID PRN Pain 06/02/24 06/11/24 Unknown History insulin pump cartridge,automated 06/11/24 06/11/24 Unknown History dose,BT with controller subcutaneous (Omnipod 5 G6 Intro Kit (Gen 5) subcutaneous cartridge with controller) Physical Exam Vital Signs and Narrative: Vital Signs: Last Vital Signs Temp 99.2 F 06/21/24 22:14 Pulse 88 06/21/24 22:14 Resp 16 06/21/24 22:14 BP 106/58 L 06/21/24 22:14 Pulse Ox 97 06/21/24 22:14 O2 Del Method Nasal Cannula 06/21/24 22:14 O2 Flow Rate 3 06/21/24 22:14 BMI result Body Mass Index 24.6 Middle-aged male lying in bed in mild distress on supplemental oxygen Neck supple Regular rate and rhythm, S1-S2 heard Bilateral crackles appreciated Abdomen soft nontender, no guarding, no rigidity Patient is awake, alert and oriented to self, place, time and person ; no focal motor deficit Psych: Normal mood Minimal pedal edema Results Labs 06/21/24 20:13 06/21/24 20:13 Labs: Laboratory Results - last 24 hr 06/21/24 06/21/24 06/21/24 20:08 20:13 20:20 MCV 77.2 L MCH 24.1 L MCHC 31.2 RDW 19.9 H Plt Count 446 H MPV 10.2 Immature Gran % (Auto) 1.2 H Neut % (Auto) 74.0 H Lymph % (Auto) 13.7 L [place] % (Auto) 8.0 Eos % (Auto) 2.7 Baso % (Auto) 0.4 Lymph # (Auto) 2.6 [place] # (Auto) 1.5 H Eos # (Auto) 0.5 H Baso # (Auto) 0.1 Abs Immat Gran (auto) 0.22 H Absolute Neuts (auto) 14.2 H Absolute Nucleated RBC 0.020 H Nucleated RBC % (auto) 0.1 Smear Tech's Comments VERIFIED PT 11.2 INR 0.9 VBG pH 7.53 H VBG pCO2 29 VBG pO2 80 VBG HCO3 25 VBG O2 Saturation 97.0 VBG Base Excess 3.1 Anion Gap 19 Estim Creat Clear Calc 34.8 Estimated GFR 31 Random Glucose 166 H Calcium 9.1 D Magnesium 2.3 Total Bilirubin 0.3 AST 13 ALT 17 Alkaline Phosphatase 115 Troponin I High Sens 5.7 B-Natriuretic Peptide 282 H Total Protein 7.2 Albumin 3.9 Influenza Type A (PCR) NEGATIVE Influenza Type B (PCR) NEGATIVE RSV RNA Qual (PCR) NEGATIVE SARS-CoV-2 RNA (RT-PCR) NEGATIVE Imaging Radiologist's Impressions: Impressions Chest X-Ray 06/21/24 19:26 IMPRESSION: Patchy opacities are redemonstrated within the mid lungs bilaterally. An infectious/inflammatory process is suspected. Electronically signed by: Scott Boston DO 06/21/2024 09:50 PM EDT RP Chest CT 06/21/24 22:50 IMPRESSION: *Findings suspicious for bronchitis and peribronchial inflammatory changes with findings most pronounced in the left and right middle lung zones. Findings are slightly progressed in conspicuity compared with 06/11/2024. *Unchanged multifocal reactive appearing mediastinal lymphadenopathy. *Small bilateral pleural effusions unchanged in size compared with 06/11/2024. *Overall, the above findings are suspicious for pulmonary infection. The differential diagnosis includes pulmonary mycobacterium avium complex infection given the bilateral middle lung zone distribution of findings. Electronically signed by: Brett Garcia MD 06/21/2024 11:34 PM EDT RP Assessment and Plan (1) Pneumonia: Status: Acute (2) Acute kidney injury superimposed on CKD: Status: Acute (3) Hypoxia: Status: Acute Plan This is a 48-year-old male with pertinent history of insulin-dependent diabetes mellitus, hypertension, mood disorder, COPD with chronic hypoxia on prn home night time O2, alcohol use disorder, congestive heart failure with preserved EF, gastroesophageal reflux disease with esophagitis, alcohol use disorder, CKD stage 3 who presents to the emergency department for evaluation of dyspnea. #. Acute hypoxic respiratory failure and sepsis due to pneumonia: Will admit patient with supplemental oxygen. Initiating empiric broad-spectrum IV antibiotics. Resuscitated with IV crystalloids. Lactic acid and blood culture obtained. CT chest reviewed. Consulting pulmonology, appreciate assistance #. Acute kidney injury on chronic kidney disease: Monitor creatinine and urine output with IV crystalloid given in the ER. Continue to monitor and avoid nephrotoxins #. COPD with chronic hypoxic respiratory failure on p.r.n. home nighttime O2: No exacerbation during admission. Continue home inhaler #. Insulin-dependent diabetes mellitus with hyperglycemia: Initiating Accu-Cheks with sliding scale insulin before meals and at bedtime #. Congestive heart failure with preserved EF: No exacerbation during admission #. Hypertension: Continue home antihypertensives #. Mood disorder: Continue home mood stabilizers #. Esophagitis/GERD: On fluconazole and PPI #. Iron deficiency anemia: Continue iron supplementation Med rec pending DVT prophylaxis: Lovenox Full code Admit as inpatient and will require two night minimum hospital stay for supplemental oxygen, IV antibiotics (as above), which is not possible in a lesser acute setting. Specialist consult pending Quality Stroke Does the patient have a stroke diagnosis?: No VTE Prior VTE?: No VTE Risk Level:: Medical - moderate - high VTE Device Contraindication: Treatment Not Indicated VTE Drug Contraindication: N/A - Med Ordered
[2024-06-22] VITALS (14 sets, daily range): BP systolic 116–143; BP diastolic 60–88; PULSE 74–106; RESP 18–21; TEMP 36.8–36.9; O2SAT 88–97
--- NOTE | 2024-06-22 | ECG_ITS ---
Test Reason : CHEST PAIN Blood Pressure : / mmHG Vent. Rate : 104 BPM Atrial Rate : 104 BPM P-R Int : 114 ms QRS Dur : 078 ms QT Int : 356 ms P-R-T Axes : 042 051 030 degrees QTc Int : 468 ms Sinus tachycardia Otherwise normal ECG When compared with ECG of 21-JUN-2024 20:30, No significant change was found Referred By: Garret Cifuentes Electronically Signed By:BETO TURNER
[2024-06-22 00:08] LABS: Lactic Acid 1.7 mmol/L (0.5-2.0)
[2024-06-22] MEDS: cefTRIAXone sodium 1 GM in 0.9 % Sodium Chloride 50 ML IV ×2 (00:34→15:39)
[2024-06-22] MEDS: 0.9 % Sodium Chloride 500 ML IV (00:44)
[2024-06-22] MEDS: Piperacillin Sodium/Tazobactam 4.5 GM in 0.9 % Sodium Chloride 100 ML IV ×2 (01:37→08:59)
[2024-06-22] MEDS: vancomycin HCL 1,500 MG in 0.9 % Sodium Chloride 500 ML 333.33 MG IV (01:59)
[2024-06-22 05:11] LABS: MANUAL DIFF FLAG NO
[2024-06-22 05:18] LABS: Basophils Absolute Auto 0.1 X10*3/uL (0.0-0.2); Basophils Percent Auto 0.5 % (0-2); Eosinophils Absolute Auto 0.5 X10*3/uL (0.0-0.4); Hematocrit 26.7 % (42.0-52.0); Hemoglobin 8.3 g/dl (14.0-18.0); Imm Gran Abs Auto 0.19 X10*3/uL (0.00-0.03); Imm Gran Pct Auto 1.2 % (0.0-0.4); Lymphocytes Absolute Auto 1.8 X10*3/uL (1.2-4.9); Lymphocytes Percent Auto 11.2 % (20-40); Mean Corpuscular HGB Conc 31.1 g/dl (31.0-36.0); Mean Corpuscular Hemoglobin 24.3 pg (27.0-33.0); Mean Corpuscular Volume 78.3 fL (80.0-98.0); Mean Platelet Volume 10.5 fL (9.4-12.4); Monocytes Absolute Auto 1.2 X10*3/uL (0.1-1.2); Monocytes Percent Auto 7.9 % (2-11); NRBC Pct Auto 0.2 /100WBC (0.0-0.2); Neutrophils Percent Auto 76.2 % (45-73); Platelet Count 429 X10*3/uL (160-400); Red Blood Count 3.41 X10*6/uL (4.60-5.80); Red Cell Distribution Width 20.2 % (11.0-16.0); White Blood Count 15.7 X10*3/uL (4.8-10.8)
[2024-06-22 05:37] LABS: Anion Gap 15 (12-20); Blood Urea Nitrogen 45 mg/dL (9-16); Calcium 8.7 mg/dL (8.4-10.2); Carbon Dioxide 26 mmol/L (22-29); Chloride 106 mmol/L (96-108); Creatinine Clr Calc Pharmacy 35.3; Estimated Glomerular Filt Rate 32; Glucose Random 164 mg/dL (60-115); Potassium 4.4 mmol/L (3.3-5.1); Sodium 143 mmol/L (135-145)
--- NOTE | 2024-06-22 06:58 | PHA.PROG ---
Admission Date/Time: June 21, 2024 23:43 Indication: Sepsis Weight in k.1 kg Adjusted body weight in Kg: [place] body weight in Kg: Obesity Dosing Indication % IBW: Serum Creatinine - Last 168 Hours 06/21/24 06/22/24 20:13 04:50 Creatinine 2.23 H 2.20 H Estimated CrCl and GFR - Last 168 Hours 06/21/24 06/22/24 20:13 04:50 Estim Creat Clear Calc 34.8 35.3 Estimated GFR 31 32 Vancomycin Loading Dose: 1500mg x 1 Current Vancomycin Dosing Regimen: 1000mg Q24H Vancomycin Monitoring using AUC goal of 400 - 600 range with trough as surrogate marker: 536mg/L Date and Time for next Vancomycin Level to be drawn: 06/23 @2100 Pharmacist Comments on Vancomycin Plan: Patient's renal function is poor so getting a level after two doses. Predicted trough of 17.1 mg/L Vancomycin dosing will take advantage of ustyme as a clinical decision support tool that uses Bayesian modeling to calculate individual patient's pharmacokinetic parameters and forecast the patient's drug concentration time course with the target goal AUC 24 range of 400 - 600 mg/L/hr.
--- NOTE | 2024-06-22 07:31 | PHA.MEDREC ---
Pharmacy Consult ? Medication Reconciliation Pharmacy has completed the medication reconciliation. Patient recently discharged 06/19/24. Confirmed using discharge packet.
[2024-06-22 07:49] LABS: Glucose, Whole Blood 236 mg/dL (60-115)
[2024-06-22] MEDS: Insulin Lispro 100 UNIT/ML 3 ML VIAL SUBCUT ×4 (07:51→20:38)
--- NOTE | 2024-06-22 07:55 | PC.NURSE ---
Resumed care of pt at 0700. Pt resting in bed quietly eating breakfast. POC 239, 4units of insulin given. Pt a/ox4, lung sounds cta bilaterally, no increased WOB/SOB, s1 and s2 heard, abdomen soft, non-tender, pt states no pain at this time. [facility], call harper within reach, all needs met at this time.
[2024-06-22] MEDS: Thiamine HCL 100 MG TABLET PO (08:49)
[2024-06-22] MEDS: hydrALAZINE HCl 50 MG TABLET 100 MG PO ×3 (08:50→20:39)
[2024-06-22] MEDS: amLODIPine Besylate 10 MG TABLET PO (08:51)
[2024-06-22] MEDS: Escitalopram Oxalate 10 MG TABLET PO (08:52)
[2024-06-22] MEDS: Magnesium Oxide 400 MG TABLET PO ×2 (08:52→17:06)
[2024-06-22] MEDS: Ascorbic Acid 250 MG TABLET PO (08:53)
[2024-06-22] MEDS: Folic Acid 1 MG TABLET PO (08:53)
[2024-06-22] MEDS: Aspirin Enteric Coated 81 MG TABLET.DR PO (08:53)
[2024-06-22] MEDS: Enoxaparin Sodium 30 MG/0.3 ML SYRINGE SUBCUT (08:54)
[2024-06-22] MEDS: Ferrous Sulfate 324 MG TABLET.DR PO (08:54)
[2024-06-22] MEDS: Nicotine 14 MG PATCH.TD24 TRANSDERMA (08:55)
[2024-06-22] MEDS: 0.9 % Sodium Chloride Flush 3 ML SYRINGE IVFLUSH ×2 (09:02→17:28)
[2024-06-22] MEDS: Isosorbide Mononitrate 30 MG TAB.ER.24H PO (09:02)
[2024-06-22] MEDS: Albuterol Sulfate 2.5 MG, Albuterol/Iprat 2.5/0.5MG 3 ML 3 ML INHALE (09:38)
[2024-06-22 10:01] LABS: Anion Gap 15 (12-20); Blood Urea Nitrogen 46 mg/dL (9-16); Calcium 8.4 mg/dL (8.4-10.2); Carbon Dioxide 22 mmol/L (22-29); Chloride 105 mmol/L (96-108); Creatinine Clr Calc Pharmacy 33.7; Estimated Glomerular Filt Rate 30; Glucose Random 305 mg/dL (60-115); Potassium 4.3 mmol/L (3.3-5.1); Sodium 138 mmol/L (135-145)
--- NOTE | 2024-06-22 10:12 | PC.NURSE ---
This RN placed pt on a bubbler as he was on 6L NC to maintain an O2 between 88-92%. Pt given an IS and encouraged to use every hour, education given on how to properly use. Resp notified, breathing tx and new orders placed. Pt also got up with this RN and did 2 laps around ED to encouage him to get up and move around. Pt tolerated 2nd lap well with no desat episodes, 1st lap he took 2 breaks and 2 episode of desat to 85% on 6L NC Pt encouraged proper breathing techniques with current NC, encouraged coughing to get junk up and out. Pt now back in bed resting
[2024-06-22] MEDS: Albuterol/Iprat 2.5/0.5MG 3 ML AMPUL.NEB INHALE ×3 (11:30→19:25)
--- NOTE | 2024-06-22 11:58 | P.CONPL_ITS ---
History of Present Illness History of Present Illness Consult date: 06/22/24 Chief complaint: Dyspnea Narrative: 48-year-old gentleman with underlying history of diabetes mellitus, hypertension, COPD on 2-4 L of supplemental oxygen, alcohol abuse, diastolic heart failure, with recent admission to [facility] for dyspnea and hypoxia secondary to acute on chronic exacerbation of diastolic congestive heart failure admitted on 06/21/2024 with dyspnea and hypoxia ongoing for 1 day prior to ER evaluation. On ER evaluation patient with worsening hypoxia requiring up to 6 L of supplemental oxygen via nasal cannula to maintain normal oximetry, elevated BNP, and CT chest showing patchy infiltrates with pulmonary edema. Patient started on empiric antibiotics. Review of Systems 2 Constitutional: Constitutional: Denies daytime sleepiness, Denies excessive sweating, Denies fatigue, Denies fever(s), Denies lethargy, Denies malaise, Denies night sweats, Denies snoring and Denies weight loss Eyes: Eyes: Denies blurry vision and Denies itchy eyes ENT: Denies nasal congestion, Denies post nasal drip, Denies sinus pain, Denies sinus pressure and Denies other ( Thrush) Cardiovascular: Cardiovascular: Denies chest pain, Denies pedal edema, Reports dyspnea, Reports dyspnea on exertion, Denies orthopnea and Denies paroxysmal nocturnal dyspnea Respiratory: Respiratory: Denies cough, Denies hemoptysis, Denies excessive phlegm production, Reports dyspnea, Reports dyspnea on exertion, Denies snoring and Denies wheezing Gastrointestinal: Gastrointestinal: Denies abdominal pain and Denies heartburn Musculoskeletal: Musculoskeletal: Denies myalgias, Denies arthralgias and Denies joint swelling Integumentary/Breasts: Skin/Breast: Denies rash Neurologic: Denies memory loss and Denies seizure-like activity Psychiatric: Psychiatric: Denies abnormal sleep pattern, Denies anxiety and Denies memory loss Endocrine: Endocrine: Denies excessive sweating, Denies fatigue and Denies heat intolerance Hematologic/Lymphatic: Hematologic/Lymphatic: Denies easy bruising Allergic/Immunologic: Allergic/Immunologic: Denies itchy eyes, Denies seasonal rhinorrhea and Denies wheezing PMFSH Past Medical History Medical History KELVIN (acute kidney injury) Hypertension Chronic heart failure with preserved ejection fraction (HFpEF) Acute respiratory failure with hypoxia Congestive heart failure CKD (chronic kidney disease) stage 1, GFR 90 ml/min or greater Depression COPD exacerbation YARELIS (obstructive sleep apnea) CHF exacerbation Hypoxia Acute respiratory failure Uncontrolled hypertension Acute on chronic diastolic (congestive) heart failure Acute on chronic anemia Hyperglycemia due to type 2 diabetes mellitus YARELIS (obstructive sleep apnea) Congestive heart failure Anxiety HLD (hyperlipidemia) Diabetes Hypercholesteremia HTN (hypertension) Asthma PAD (peripheral artery disease) Family History Family History Father Alzheimer disease CAD (coronary artery disease) Surgical History Surgical History History of esophagogastroduodenoscopy S/P angiogram of extremity Social History Social History Household Members: Family Household Members Other:: 3 Housing: Apartment Do you presently have visiting nurse or other home services: Yes Unable to assess alcohol history related to: Unknown Alcohol intake: former Comment: pt is independent in room Patient Tobacco Use Status: Tobacco use Unknown Tobacco use type: Cigarette Cigarettes Per Day: 5 Years Smoked: 33 Smoked in Last 30 Days: Yes e-Cigarette/Vaping Use: Never Used Second Hand Smoke Exposure: Yes Substance Use Type: Marijuana Advance Directives: Yes Advance Directives on File: Yes Advance Directives Date on File: 06/21/21 Do you have a plan to hurt others: No Plan Nutrition Risks: No Nutritional Risk service: No Current occupational status: disabled Meds Allergies Allergy/AdvReac Type Severity Reaction Status Date / Time dulaglutide [[facility] Allergy Unknown Verified 06/21/24 19:27 metformin [METFORMIN] AdvReac Mild DIARRHEA, Verified 06/21/24 19:27 nausea and vomiting Active Medications: Current Medications Acetaminophen (Acetaminophen 325 Mg Tablet) 650 mg PO Q6H PRN PRN Reason: Pain, Mild (Pain Scale 1-3), fever or headache Albuterol Sulfate (Albuterol Sulfate 90 Mcg 8 Gm Inhaler) 2 puff INHALE Q4H PRN PRN Reason: bronchospasm Albuterol/Ipratropium (Albuterol/Iprat 2.5/0.5mg 3 Ml Ampul.Neb) 3 ml INHALE RQ4H WHILE AWAKE DIONISIO Last Admin: 06/22/24 11:30 Dose: 3 ml Amlodipine Besylate (Amlodipine Besylate 10 Mg Tablet) 10 mg PO DAILY [facility]; Protocol Last Admin: 06/22/24 08:51 Dose: 10 mg Ascorbic Acid (Ascorbic Acid 250 Mg Tablet) 250 mg PO DAILY [facility] Last Admin: 06/22/24 08:53 Dose: 250 mg Aspirin (Aspirin Enteric Coated 81 Mg Tablet.) 81 mg PO DAILY [facility] Last Admin: 06/22/24 08:53 Dose: 81 mg Calcium Carbonate (Calcium Carbonate 750 Mg Tab.Chew) 750 mg PO Q4H PRN PRN Reason: Heartburn Enoxaparin Sodium (Enoxaparin Sodium 40 Mg/0.4 Ml Syringe) 40 mg SUBCUT DAILY [facility] Escitalopram Oxalate (Escitalopram Oxalate 10 Mg Tablet) 10 mg PO DAILY [facility] Last Admin: 06/22/24 08:52 Dose: 10 mg Ferrous Sulfate (Ferrous Sulfate 324 Mg Tablet.) 324 mg PO DAILY [facility] Last Admin: 06/22/24 08:54 Dose: 324 mg Fluticasone/Vilanterol (Fluticasone/Vilanterol 100/25 Blst.W.Dev) 1 puff INHALE RDAILY [facility] Last Admin: 06/22/24 08:35 Dose: Not Given Folic Acid (Folic Acid 1 Mg Tablet) 1 mg PO DAILY [facility] Last Admin: 06/22/24 08:53 Dose: 1 mg Glucose (Glucose Gel 15 Gm Gel..Gram.) 15 gm PO Q15M PRN; Protocol PRN Reason: per Hypoglycemia Standing Ord. Hydralazine HCl (Hydralazine Hcl 50 Mg Tablet) 100 mg PO TID [facility]; Protocol Last Admin: 06/22/24 08:50 Dose: 100 mg Piperacillin Sod/Tazobactam (Sod 4.5 gm/ Sodium Chloride) 100 mls @ 200 mls/hr IV Q8H [facility] Last Infusion: 06/22/24 10:12 Dose: Infused Dextrose (D10) 250 mls @ 750 mls/hr IV Q15M PRN; Protocol PRN Reason: per Hypoglycemia Standing Ord. Vancomycin HCl 1,000 mg/ (Sodium Chloride) 270 mls @ 270 mls/hr IV Q24H [facility] Insulin Human Lispro (Insulin Lispro 100 Unit/Ml 3 Ml Vial) 0 unit SUBCUT QIDACHS [facility]; Protocol Last Admin: 06/22/24 07:51 Dose: 4 unit Isosorbide Mononitrate (Isosorbide Mononitrate 30 Mg Tab.Er.24h) 30 mg PO DAILY [facility]; Protocol Last Admin: 06/22/24 09:02 Dose: 30 mg Magnesium Hydroxide (Milk Of Magnesia 30 Ml Oral.Susp) 30 ml PO DAILY PRN PRN Reason: Constipation Magnesium Oxide (Magnesium Oxide 400 Mg Tablet) 400 mg PO BIDPC [facility] Last Admin: 06/22/24 08:52 Dose: 400 mg Melatonin (Melatonin 3 Mg Tablet) 6 mg PO BEDTIME PRN PRN Reason: Insomnia Nicotine (Nicotine 14 Mg Patch.Td24) 14 mg TRANSDERMA DAILY [facility] Last Admin: 06/22/24 08:55 Dose: 14 mg Omeprazole (Omeprazole 20 Mg Capsule.Dr) 20 mg PO BID@0630,1630 [facility] Ondansetron HCl (Ondansetron Hcl 4 Mg/2 Ml Vial) 4 mg IVPUSH Q8H PRN PRN Reason: Nausea and Vomiting Pharmacy Consult (Consult Rx Vancomycin Dosing) 1 each MISCELLANE DAILY PRN PRN Reason: Consult order Sodium Chloride (0.9 % Sodium Chloride Flush 3 Ml Syringe) 3 ml IVFLUSH QSHIFT [facility] Last Admin: 06/22/24 09:02 Dose: 3 ml Sucralfate (Sucralfate 1 Gm Tablet) 1 gm PO QIDACHS [facility] Thiamine HCl (Thiamine Hcl 100 Mg Tablet) 100 mg PO DAILY [facility] Last Admin: 06/22/24 08:49 Dose: 100 mg Trazodone HCl (Trazodone Hcl 100 Mg Tablet) 100 mg PO BEDTIME [facility] Home Medications ?Medication ?Instructions ?Recorded ?Confirmed ?Last Taken ?Type escitalopram oxalate 10 mg tablet 10 mg PO DAILY 08/01/22 06/22/24 06/10/24 History trazodone 50 mg tablet 100 mg PO BEDTIME 08/01/22 06/22/24 06/10/24 History aspirin 81 mg tablet,delayed 81 mg PO DAILY 10/06/22 06/22/24 06/10/24 History release atorvastatin 40 mg tablet 40 mg PO DAILY 10/06/22 06/22/24 06/10/24 History gabapentin 300 mg capsule 300 mg PO TID 10/06/22 06/22/24 06/10/24 History metoprolol succinate 100 mg 100 mg PO DAILY 10/06/22 06/22/24 06/10/24 History tablet,extended release 24 hr furosemide 40 mg tablet 80 mg PO DAILY 06/26/23 06/22/24 06/10/24 History furosemide 40 mg tablet 40 mg PO BEDTIME 11/24/23 06/22/24 06/10/24 History fluticasone 250 mcg-salmeterol 50 1 ea inhalation BID 12/22/23 06/22/24 06/10/24 History mcg/dose blistr powdr for inhalation (Advair Diskus) albuterol sulfate 90 mcg/actuation 2 puff inhalation Q4H PRN 04/26/24 06/22/24 Unknown History aerosol inhaler bronchospasm insulin lispro 100 unit/mL 1 sliding scale dose subcut TIDAC 04/26/24 06/22/24 06/10/24 History subcutaneous solution amlodipine 5 mg tablet 10 mg PO DAILY 06/02/24 06/22/24 06/10/24 History diclofenac sodium 1 % topical gel 1 g topical QID PRN Pain 06/02/24 06/22/24 Unknown History insulin pump cartridge,automated 06/11/24 06/11/24 Unknown History dose,BT with controller subcutaneous (Omnipod 5 G6 Intro Kit (Gen 5) subcutaneous cartridge with controller) Physical Exam 2 Vital Signs: Vital Signs: Last Vital Signs Temp 98.3 F 06/22/24 10:01 Pulse 76 06/22/24 11:30 Resp 20 06/22/24 11:30 BP 130/64 06/22/24 10:01 Pulse Ox 94 06/22/24 10:01 O2 Del Method Nasal Cannula 06/22/24 10:01 O2 Flow Rate 6 06/22/24 10:01 BMI result Body Mass Index 24.6 Const: General: no acute distress and alert Nutritional Appearance: not obese Orientation/consciousness: Other orientation findings ( oriented) HEENT: Head: Yes atraumatic Eyes: General: appearance normal, both eyes and all related structures S clerae: sclerae normal EOM: EOMs intact bilaterally Neck: Neck: Yes supple Lymphatic: no lymphadenopathy noted Resp: Effort & Inspection: normal respiratory effort and no use of accessory muscles Auscultation: clear to auscultation bilaterally Cardio: Rate: regular rate Rhythm: regular rhythm Heart sounds: no gallops, no murmurs and no rubs Skin: General skin exam: other ( warm) Extrem: General: No clubbing, No cyanosis and Yes edema (Trace bilateral) Results Laboratory Findings 06/22/24 04:50 06/22/24 09:30 ABG, PT/INR, D-dimer: PT/INR, D-dimer PT 11.2 SEC (11.1-13.3) 06/21/24 20:13 INR 0.9 (0.9-1.1) 06/21/24 20:13 Abnormal lab findings: Abnormal Labs 06/21/24 06/21/24 06/22/24 20:13 20:20 04:50 WBC 19.1 H 15.7 H RBC 3.69 L 3.41 L Hgb 8.9 L 8.3 L Hct 28.5 L 26.7 L MCV 77.2 L 78.3 L MCH 24.1 L 24.3 L RDW 19.9 H 20.2 H Plt Count 446 H 429 H Immature Gran % (Auto) 1.2 H 1.2 H Neut % (Auto) 74.0 H 76.2 H Lymph % (Auto) 13.7 L 11.2 L [place] # (Auto) 1.5 H Eos # (Auto) 0.5 H 0.5 H Abs Immat Gran (auto) 0.22 H 0.19 H Absolute Neuts (auto) 14.2 H 12.0 H Absolute Nucleated RBC 0.020 H 0.030 H VBG pH 7.53 H BUN 50 H 45 H Creatinine 2.23 H 2.20 H POC Glucose Random Glucose 166 H 164 H B-Natriuretic Peptide 282 H 06/22/24 06/22/24 07:40 09:30 WBC RBC Hgb Hct MCV MCH RDW Plt Count Immature Gran % (Auto) Neut % (Auto) Lymph % (Auto) [place] # (Auto) Eos # (Auto) Abs Immat Gran (auto) Absolute Neuts (auto) Absolute Nucleated RBC VBG pH BUN 46 H Creatinine 2.30 H POC Glucose 236 H Random Glucose 305 H B-Natriuretic Peptide Assessment and Plan (1) Acute and chronic respiratory failure with hypoxia: Status: Resolved (2) Acute bronchitis: Status: Acute (3) Congestive heart failure: Status: Acute Plan Impression: 48-year-old gentleman with underlying diastolic, COPD on 2 L admitted with acute on chronic hypoxic respiratory failure with CT chest consistent with pulmonary edema and multifocal infiltrates. Likely acute bronchitis, no evidence of lobar pneumonia. Also appears to still have pulmonary edema. Recommendations: Agree with empiric antibiotic regimen for community-acquired pneumonia with ceftriaxone/azithromycin or levofloxacin. No evidence of acute COPD exacerbation, no indication for systemic glucocorticoids. Continue nebulized bronchodilators. Also appears to still have a component of pulmonary edema, consider further diuresis. Procedures Date of Service Date of Service: 06/22/24
[2024-06-22 12:02] LABS: Glucose, Whole Blood 301 mg/dL (60-115)
[2024-06-22] MEDS: Sucralfate 1 GM TABLET PO ×3 (12:34→20:39)
--- NOTE | 2024-06-22 14:37 | HO.PM.IMPN ---
Subjective Subjective Date of Service: 06/22/24 Interval History: possible pneumonia Review of Systems sob seems somewhat improving denies any chest pain or fever Physical Exam Vital Signs: Vital Signs: Last Vital Signs Temp 98.3 F 06/22/24 10:01 Pulse 76 06/22/24 11:30 Resp 20 06/22/24 11:30 BP 130/64 06/22/24 10:01 Pulse Ox 94 06/22/24 10:01 O2 Del Method Nasal Cannula 06/22/24 10:01 O2 Flow Rate 6 06/22/24 10:01 BMI result Body Mass Index 24.6 Appearance: Alert.? Oriented X3.? cvs: rrr, [id number] . res: clear to auscultation ,no rhonchii or wheezing abd: no rebound or guarding ,nt, bs present. ext pulses present , no cyanosis . neuro: axo3 , nonfocal. Objective Data Active Medications Acetaminophen (Acetaminophen 325 Mg Tablet) 650 mg PO Q6H PRN PRN Reason: Pain, Mild (Pain Scale 1-3), fever or headache Albuterol Sulfate (Albuterol Sulfate 90 Mcg 8 Gm Inhaler) 2 puff INHALE Q4H PRN PRN Reason: bronchospasm Albuterol/Ipratropium (Albuterol/Iprat 2.5/0.5mg 3 Ml Ampul.Neb) 3 ml INHALE RQ4H WHILE AWAKE [facility] Last Admin: 06/22/24 11:30 Dose: 3 ml Documented By: AMADO Amlodipine Besylate (Amlodipine Besylate 10 Mg Tablet) 10 mg PO DAILY [facility]; Protocol Last Admin: 06/22/24 08:51 Dose: 10 mg Documented By: RENETTA Ascorbic Acid (Ascorbic Acid 250 Mg Tablet) 250 mg PO DAILY [facility] Last Admin: 06/22/24 08:53 Dose: 250 mg Documented By: RENETTA Aspirin (Aspirin Enteric Coated 81 Mg Tablet.) 81 mg PO DAILY [facility] Last Admin: 06/22/24 08:53 Dose: 81 mg Documented By: RENETTA Calcium Carbonate (Calcium Carbonate 750 Mg Tab.Chew) 750 mg PO Q4H PRN PRN Reason: Heartburn Enoxaparin Sodium (Enoxaparin Sodium 40 Mg/0.4 Ml Syringe) 40 mg SUBCUT DAILY [facility] Escitalopram Oxalate (Escitalopram Oxalate 10 Mg Tablet) 10 mg PO DAILY [facility] Last Admin: 06/22/24 08:52 Dose: 10 mg Documented By: RENETTA Ferrous Sulfate (Ferrous Sulfate 324 Mg Tablet.Dr) 324 mg PO DAILY [facility] Last Admin: 06/22/24 08:54 Dose: 324 mg Documented By: RENETTA Fluticasone/Vilanterol (Fluticasone/Vilanterol 100/25 Blst.W.Dev) 1 puff INHALE RDAILY [facility] Last Admin: 06/22/24 08:35 Dose: Not Given Documented By: AMADO Non-Admin Reason: Med Not Available Folic Acid (Folic Acid 1 Mg Tablet) 1 mg PO DAILY [facility] Last Admin: 06/22/24 08:53 Dose: 1 mg Documented By: RENETTA Glucose (Glucose Gel 15 Gm Gel..Gram.) 15 gm PO Q15M PRN; Protocol PRN Reason: per Hypoglycemia Standing Ord. Hydralazine HCl (Hydralazine Hcl 50 Mg Tablet) 100 mg PO TID [facility]; Protocol Last Admin: 06/22/24 08:50 Dose: 100 mg Documented By: RENETTA Piperacillin Sod/Tazobactam (Sod 4.5 gm/ Sodium Chloride) 100 mls @ 200 mls/hr IV Q8H [facility] Last Infusion: 06/22/24 10:12 Dose: Infused Documented By: RENETTA Dextrose (D10) 250 mls @ 750 mls/hr IV Q15M PRN; Protocol PRN Reason: per Hypoglycemia Standing Ord. Vancomycin HCl 1,000 mg/ (Sodium Chloride) 270 mls @ 270 mls/hr IV Q24H [facility] Insulin Human Lispro (Insulin Lispro 100 Unit/Ml 3 Ml Vial) 0 unit SUBCUT QIDACHS [facility]; Protocol Last Admin: 06/22/24 12:34 Dose: 8 unit Documented By: EDY Isosorbide Mononitrate (Isosorbide Mononitrate 30 Mg Tab.Er.24h) 30 mg PO DAILY [facility]; Protocol Last Admin: 06/22/24 09:02 Dose: 30 mg Documented By: RENETTA Magnesium Hydroxide (Milk Of Magnesia 30 Ml Oral.Susp) 30 ml PO DAILY PRN PRN Reason: Constipation Magnesium Oxide (Magnesium Oxide 400 Mg Tablet) 400 mg PO BIDPC [facility] Last Admin: 06/22/24 08:52 Dose: 400 mg Documented By: RENETTA Melatonin (Melatonin 3 Mg Tablet) 6 mg PO BEDTIME PRN PRN Reason: Insomnia Nicotine (Nicotine 14 Mg Patch.Td24) 14 mg TRANSDERMA DAILY [facility] Last Admin: 06/22/24 08:55 Dose: 14 mg Documented By: RENETTA Omeprazole (Omeprazole 20 Mg Capsule.Dr) 20 mg PO BID@0630,1630 [facility] Ondansetron HCl (Ondansetron Hcl 4 Mg/2 Ml Vial) 4 mg IVPUSH Q8H PRN PRN Reason: Nausea and Vomiting Pharmacy Consult (Consult Rx Vancomycin Dosing) 1 each MISCELLANE DAILY PRN PRN Reason: Consult order Sodium Chloride (0.9 % Sodium Chloride Flush 3 Ml Syringe) 3 ml IVFLUSH QSHIFT [facility] Last Admin: 06/22/24 09:02 Dose: 3 ml Documented By: RENETTA Sucralfate (Sucralfate 1 Gm Tablet) 1 gm PO QIDACHS [facility] Last Admin: 06/22/24 12:34 Dose: 1 gm Documented By: EDY Thiamine HCl (Thiamine Hcl 100 Mg Tablet) 100 mg PO DAILY [facility] Last Admin: 06/22/24 08:49 Dose: 100 mg Documented By: RENETTA Trazodone HCl (Trazodone Hcl 100 Mg Tablet) 100 mg PO BEDTIME [facility] Labs 06/22/24 04:50 06/22/24 09:30 Labs: Laboratory Results - last 24 hr 06/21/24 06/21/24 06/21/24 20:08 20:13 20:20 MCV 77.2 L MCH 24.1 L MCHC 31.2 RDW 19.9 H Plt Count 446 H MPV 10.2 Immature Gran % (Auto) 1.2 H Neut % (Auto) 74.0 H Lymph % (Auto) 13.7 L [place] % (Auto) 8.0 Eos % (Auto) 2.7 Baso % (Auto) 0.4 Lymph # (Auto) 2.6 [place] # (Auto) 1.5 H Eos # (Auto) 0.5 H Baso # (Auto) 0.1 Abs Immat Gran (auto) 0.22 H Absolute Neuts (auto) 14.2 H Absolute Nucleated RBC 0.020 H Nucleated RBC % (auto) 0.1 Smear Tech's Comments VERIFIED PT 11.2 INR 0.9 VBG pH 7.53 H VBG pCO2 29 VBG pO2 80 VBG HCO3 25 VBG O2 Saturation 97.0 VBG Base Excess 3.1 Anion Gap 19 Estim Creat Clear Calc 34.8 Estimated GFR 31 POC Glucose Random Glucose 166 H Lactic Acid Calcium 9.1 D Magnesium 2.3 Total Bilirubin 0.3 AST 13 ALT 17 Alkaline Phosphatase 115 Troponin I High Sens 5.7 B-Natriuretic Peptide 282 H Total Protein 7.2 Albumin 3.9 Influenza Type A (PCR) NEGATIVE Influenza Type B (PCR) NEGATIVE RSV RNA Qual (PCR) NEGATIVE SARS-CoV-2 RNA (RT-PCR) NEGATIVE 06/21/24 06/22/24 06/22/24 23:43 04:50 07:40 MCV 78.3 L MCH 24.3 L MCHC 31.1 RDW 20.2 H Plt Count 429 H MPV 10.5 Immature Gran % (Auto) 1.2 H Neut % (Auto) 76.2 H Lymph % (Auto) 11.2 L [place] % (Auto) 7.9 Eos % (Auto) 3.0 Baso % (Auto) 0.5 Lymph # (Auto) 1.8 [place] # (Auto) 1.2 Eos # (Auto) 0.5 H Baso # (Auto) 0.1 Abs Immat Gran (auto) 0.19 H Absolute Neuts (auto) 12.0 H Absolute Nucleated RBC 0.030 H Nucleated RBC % (auto) 0.2 Smear Tech's Comments PT INR VBG pH VBG pCO2 VBG pO2 VBG HCO3 VBG O2 Saturation VBG Base Excess Anion Gap 15 Estim Creat Clear Calc 35.3 Estimated GFR 32 POC Glucose 236 H Random Glucose 164 H Lactic Acid 1.7 Calcium 8.7 Magnesium Total Bilirubin AST ALT Alkaline Phosphatase Troponin I High Sens B-Natriuretic Peptide Total Protein Albumin Influenza Type A (PCR) Influenza Type B (PCR) RSV RNA Qual (PCR) SARS-CoV-2 RNA (RT-PCR) 06/22/24 06/22/24 09:30 11:55 MCV MCH MCHC RDW Plt Count MPV Immature Gran % (Auto) Neut % (Auto) Lymph % (Auto) [place] % (Auto) Eos % (Auto) Baso % (Auto) Lymph # (Auto) [place] # (Auto) Eos # (Auto) Baso # (Auto) Abs Immat Gran (auto) Absolute Neuts (auto) Absolute Nucleated RBC Nucleated RBC % (auto) Smear Tech's Comments PT INR VBG pH VBG pCO2 VBG pO2 VBG HCO3 VBG O2 Saturation VBG Base Excess Anion Gap 15 Estim Creat Clear Calc 33.7 Estimated GFR 30 POC Glucose 301 H Random Glucose 305 H Lactic Acid Calcium 8.4 Magnesium Total Bilirubin AST ALT Alkaline Phosphatase Troponin I High Sens B-Natriuretic Peptide Total Protein Albumin Influenza Type A (PCR) Influenza Type B (PCR) RSV RNA Qual (PCR) SARS-CoV-2 RNA (RT-PCR) Assessment and Plan (1) Pneumonia: Status: Acute (2) Hypoxia: Status: Acute Assessment and Plan: 48-year-old male with pertinent history of insulin-dependent diabetes mellitus, hypertension, mood disorder, COPD with chronic hypoxia on prn home night time O2, alcohol use disorder, congestive heart failure with preserved EF, gastroesophageal reflux disease with esophagitis, alcohol use disorder, CKD stage 3 who presents to the emergency department for evaluation of dyspnea. Acute hypoxic respiratory failure and sepsis due to pneumonia: sob seems somewhat improving, blood cultures continue supplemental oxygen. Initiating empiric broad-spectrum IV antibiotics. Resuscitated with IV crystalloids. Lactic acid and blood culture obtained. CT chest reviewed. Consulting pulmonology, appreciate assistance Acute kidney injury on chronic kidney disease: cr 1.8-2 currently near 2.3 range po hydration 300 ml po q6hr COPD with chronic hypoxic respiratory failure on p.r.n. home nighttime O2: No exacerbation during admission. Continue home inhaler Insulin-dependent diabetes mellitus with hyperglycemia: added lantus 20 bid ,fs with sliding scale Congestive heart failure with preserved EF: No exacerbation during admission continue home lasix Hypertension: hold amlodipine ,continue metoprolol. Mood disorder: Continue home mood stabilizers Esophagitis/GERD: On fluconazole and PPI Iron deficiency anemia: Continue iron supplementation DVT prophylaxis: Lovenox Full code Admit as inpatient and will require two night minimum hospital stay for supplemental oxygen, IV antibiotics (as above), which is not possible in a lesser acute setting. Specialist consult pending Quality Stroke Does the patient have a stroke diagnosis?: No VTE Prior VTE?: No VTE Risk Level:: Medical - moderate - high VTE Device Contraindication: Treatment Not Indicated VTE Drug Contraindication: N/A - Med Ordered
[2024-06-22] MEDS: Gabapentin 100 MG CAPSULE PO ×2 (15:44→20:39)
[2024-06-22] MEDS: Omeprazole 20 MG CAPSULE.DR PO (17:06)
[2024-06-22] MEDS: Insulin Glargine,Hum.rec.anlog 100 UNIT/ML 10 ML VIAL 20 UNIT SUBCUT ×2 (17:07→20:38)
[2024-06-22 17:24] LABS: Glucose, Whole Blood 305 mg/dL (60-115)
[2024-06-22] MEDS: Azithromycin 500 MG in 0.9 % Sodium Chloride 250 ML 125 MG IV (17:30)
--- NOTE | 2024-06-22 19:13 | PC.NURSE ---
Assumed care of pt. Pt endorsing dypsnea, O2 saturation 88-91%, 4L via NC with previous charted at 97% on same. Repositioned pt upright, Notified hospitalist for further orders.
[2024-06-22] MEDS: Furosemide 100 MG/10 ML VIAL 60 MG IVPUSH (19:24)
[2024-06-22 20:38] LABS: Glucose, Whole Blood 336 mg/dL (60-115)
[2024-06-22] MEDS: traZODone HCL 100 MG TABLET PO (20:39)
[2024-06-22 21:30] LABS: Glucose, Whole Blood 314 mg/dL (60-115)
[2024-06-23] VITALS (21 sets, daily range): BP systolic 131–164; BP diastolic 66–79; PULSE 76–106; RESP 12–22; TEMP 36.3–37.3; O2SAT 86–96
--- NOTE | 2024-06-23 01:32 | PC.NURSE ---
pt demonstrating marked desaturation with slep - endorses sleep apnea. MD notified, order for CPAP at bedtime ordered.
[2024-06-23] MEDS: 0.9 % Sodium Chloride Flush 3 ML SYRINGE IVFLUSH ×4 (01:34→22:04)
--- NOTE | 2024-06-23 04:36 | PC.NURSE ---
Patient was put on CPAP by respiratory therapist and he could not maintain saturation on 7-10L pvc monitor in use only for the continuous O2 monitoring. Respiratory paged and instructed to put patient back on oxymask. He is currently on 7L oxymask satting 91%
[2024-06-23] MEDS: Omeprazole 20 MG CAPSULE.DR PO ×2 (06:43→14:57)
[2024-06-23 06:58] LABS: Creatinine Clr Calc Pharmacy 45.4; Estimated Glomerular Filt Rate 43
[2024-06-23 07:42] LABS: Glucose, Whole Blood 183 mg/dL (60-115)
[2024-06-23] MEDS: Albuterol/Iprat 2.5/0.5MG 3 ML AMPUL.NEB INHALE ×4 (08:09→20:06)
[2024-06-23] MEDS: Insulin Lispro 100 UNIT/ML 3 ML VIAL SUBCUT ×2 (09:21→11:49)
[2024-06-23] MEDS: Insulin Glargine,Hum.rec.anlog 100 UNIT/ML 10 ML VIAL 20 UNIT SUBCUT ×2 (09:22→22:02)
[2024-06-23] MEDS: Enoxaparin Sodium 40 MG/0.4 ML SYRINGE SUBCUT (09:26)
[2024-06-23] MEDS: Furosemide 40 MG/4 ML VIAL IVPUSH ×2 (09:27→17:13)
[2024-06-23] MEDS: Metoprolol Succinate ER 100 MG TAB.ER.24H PO (09:30)
[2024-06-23] MEDS: Aspirin Enteric Coated 81 MG TABLET.DR PO (09:30)
[2024-06-23] MEDS: Escitalopram Oxalate 10 MG TABLET PO (09:30)
[2024-06-23] MEDS: Ferrous Sulfate 324 MG TABLET.DR PO (09:30)
[2024-06-23] MEDS: hydrALAZINE HCl 50 MG TABLET 100 MG PO ×3 (09:31→21:52)
[2024-06-23] MEDS: Gabapentin 100 MG CAPSULE PO ×3 (09:31→21:52)
[2024-06-23] MEDS: Ascorbic Acid 250 MG TABLET PO (09:31)
[2024-06-23] MEDS: Folic Acid 1 MG TABLET PO (09:31)
[2024-06-23] MEDS: Magnesium Oxide 400 MG TABLET PO ×2 (09:31→17:14)
[2024-06-23] MEDS: Sucralfate 1 GM TABLET PO ×4 (09:31→21:52)
[2024-06-23] MEDS: Isosorbide Mononitrate 30 MG TAB.ER.24H PO (09:31)
[2024-06-23] MEDS: Atorvastatin Calcium 40 MG TABLET PO (09:31)
[2024-06-23] MEDS: Nicotine 14 MG PATCH.TD24 TRANSDERMA (09:32)
[2024-06-23] MEDS: Thiamine HCL 100 MG TABLET PO (09:32)
--- NOTE | 2024-06-23 10:19 | MHC.CM.PN ---
PT LIVES WITH BROTHER HE REPORTS BEING ON 02 AT HOME HE IS ACTICE WITH [facility] FOR MOW AND A FAMILY PRESERVATION OFFICER HIS CAR IS IN THE PARKING LOT DC PLAN RESUME SAME SEVICES AT HOME
[2024-06-23 11:25] LABS: Glucose, Whole Blood 332 mg/dL (60-115)
--- NOTE | 2024-06-23 11:37 | HO.PM.IMPN ---
Subjective Subjective Date of Service: 06/23/24 Interval History: possible pneumonia ,also possible chf component Review of Systems as per patient sob seems improving but oxygen demand is going up no chest pain Physical Exam Vital Signs: Vital Signs: Last Vital Signs Temp 97.8 F 06/23/24 07:20 Pulse 106 H 06/23/24 09:30 Resp 18 06/23/24 08:15 BP 156/77 H 06/23/24 09:27 Pulse Ox 93 06/23/24 07:20 O2 Del Method Nasal Cannula 06/23/24 07:20 O2 Flow Rate 10 06/23/24 07:20 BMI result Body Mass Index 24.6 Appearance: Alert.? Oriented X3.? cvs: rrr, [id number] . res: air enrty dimisnhed , few scattered rales abd: no rebound or guarding ,nt, bs present. ext pulses present , no cyanosis . neuro: axo3 , nonfocal. Objective Data Active Medications Acetaminophen (Acetaminophen 325 Mg Tablet) 650 mg PO Q6H PRN PRN Reason: Pain, Mild (Pain Scale 1-3), fever or headache Albuterol Sulfate (Albuterol Sulfate 90 Mcg 8 Gm Inhaler) 2 puff INHALE Q4H PRN PRN Reason: bronchospasm Albuterol/Ipratropium (Albuterol/Iprat 2.5/0.5mg 3 Ml Ampul.Neb) 3 ml INHALE RQ4H WHILE AWAKE [facility] Last Admin: 06/23/24 08:09 Dose: 3 ml Documented By: SUZANNE Amlodipine Besylate (Amlodipine Besylate 10 Mg Tablet) 10 mg PO DAILY [facility]; Protocol Last Admin: 06/22/24 08:51 Dose: 10 mg Documented By: RENETTA Ascorbic Acid (Ascorbic Acid 250 Mg Tablet) 250 mg PO DAILY [facility] Last Admin: 06/23/24 09:31 Dose: 250 mg Documented By: NIC Aspirin (Aspirin Enteric Coated 81 Mg Tablet.) 81 mg PO DAILY [facility] Last Admin: 06/23/24 09:30 Dose: 81 mg Documented By: NIC Atorvastatin Calcium (Atorvastatin Calcium 40 Mg Tablet) 40 mg PO DAILY [facility] Last Admin: 06/23/24 09:31 Dose: 40 mg Documented By: NIC Calcium Carbonate (Calcium Carbonate 750 Mg Tab.Chew) 750 mg PO Q4H PRN PRN Reason: Heartburn Enoxaparin Sodium (Enoxaparin Sodium 40 Mg/0.4 Ml Syringe) 40 mg SUBCUT DAILY [facility] Last Admin: 06/23/24 09:26 Dose: 40 mg Documented By: NIC Escitalopram Oxalate (Escitalopram Oxalate 10 Mg Tablet) 10 mg PO DAILY [facility] Last Admin: 06/23/24 09:30 Dose: 10 mg Documented By: NIC Ferrous Sulfate (Ferrous Sulfate 324 Mg Tablet.Dr) 324 mg PO DAILY [facility] Last Admin: 06/23/24 09:30 Dose: 324 mg Documented By: NIC Fluticasone/Vilanterol (Fluticasone/Vilanterol 100/25 Blst.W.Dev) 1 puff INHALE RDAILY [facility] Last Admin: 06/22/24 08:35 Dose: Not Given Documented By: AMADO Non-Admin Reason: Med Not Available Folic Acid (Folic Acid 1 Mg Tablet) 1 mg PO DAILY [facility] Last Admin: 06/23/24 09:31 Dose: 1 mg Documented By: NIC Furosemide (Furosemide 40 Mg/4 Ml Vial) 40 mg IVPUSH BID@0900,1800 [facility]; Protocol Last Admin: 06/23/24 09:27 Dose: 40 mg Documented By: NIC Gabapentin (Gabapentin 100 Mg Capsule) 100 mg PO TID [facility] Last Admin: 06/23/24 09:31 Dose: 100 mg Documented By: NIC Glucose (Glucose Gel 15 Gm Gel..Gram.) 15 gm PO Q15M PRN; Protocol PRN Reason: per Hypoglycemia Standing Ord. Hydralazine HCl (Hydralazine Hcl 50 Mg Tablet) 100 mg PO TID [facility]; Protocol Last Admin: 06/23/24 09:31 Dose: 100 mg Documented By: NIC Dextrose (D10) 250 mls @ 750 mls/hr IV Q15M PRN; Protocol PRN Reason: per Hypoglycemia Standing Ord. Ceftriaxone Sodium 1 gm/ (Sodium Chloride) 50 mls @ 100 mls/hr IV Q24H [facility] Last Infusion: 06/22/24 17:30 Dose: Infused Documented By: RENETTA Azithromycin 500 mg/ Sodium (Chloride) 250 mls @ 125 mls/hr IV Q24H [facility] Last Infusion: 06/22/24 20:02 Dose: Infused Documented By: PRIYANKA Insulin Glargine (Insulin Glargine,Hum.Rec.Anlog 100 Unit/Ml 10 Ml Vial) 20 unit SUBCUT BID [facility] Last Admin: 06/23/24 09:22 Dose: 20 unit Documented By: NIC Insulin Human Lispro (Insulin Lispro 100 Unit/Ml 3 Ml Vial) 0 unit SUBCUT QIDACHS [facility]; Protocol Last Admin: 06/23/24 09:21 Dose: 2 unit Documented By: NIC Isosorbide Mononitrate (Isosorbide Mononitrate 30 Mg Tab.Er.24h) 30 mg PO DAILY [facility]; Protocol Last Admin: 06/23/24 09:31 Dose: 30 mg Documented By: NIC Magnesium Hydroxide (Milk Of Magnesia 30 Ml Oral.Susp) 30 ml PO DAILY PRN PRN Reason: Constipation Magnesium Oxide (Magnesium Oxide 400 Mg Tablet) 400 mg PO BIDPC [facility] Last Admin: 06/23/24 09:31 Dose: 400 mg Documented By: NIC Melatonin (Melatonin 3 Mg Tablet) 6 mg PO BEDTIME PRN PRN Reason: Insomnia Metoprolol Succinate (Metoprolol Succinate Er 100 Mg Tab.Er.24h) 100 mg PO DAILY [facility]; Protocol Last Admin: 06/23/24 09:30 Dose: 100 mg Documented By: NIC Nicotine (Nicotine 14 Mg Patch.Td24) 14 mg TRANSDERMA DAILY [facility] Last Admin: 06/23/24 09:32 Dose: 14 mg Documented By: NIC Omeprazole (Omeprazole 20 Mg Capsule.Dr) 20 mg PO BID@0630,1630 [facility] Last Admin: 06/23/24 06:43 Dose: 20 mg Documented By: CATRACHITA Ondansetron HCl (Ondansetron Hcl 4 Mg/2 Ml Vial) 4 mg IVPUSH Q8H PRN PRN Reason: Nausea and Vomiting Sodium Chloride (0.9 % Sodium Chloride Flush 3 Ml Syringe) 3 ml IVFLUSH QSHIFT COUNT [facility] Last Admin: 06/23/24 09:26 Dose: 3 ml Documented By: NIC Sucralfate (Sucralfate 1 Gm Tablet) 1 gm PO QIDACHS COUNT [facility] Last Admin: 06/23/24 09:31 Dose: 1 gm Documented By: NIC Thiamine HCl (Thiamine Hcl 100 Mg Tablet) 100 mg PO DAILY [facility] Last Admin: 06/23/24 09:32 Dose: 100 mg Documented By: NIC Trazodone HCl (Trazodone Hcl 100 Mg Tablet) 100 mg PO BEDTIME [facility] Last Admin: 06/22/24 20:39 Dose: 100 mg Documented By: MATS Labs 06/22/24 04:50 06/23/24 05:50 Labs: Laboratory Results - last 24 hr 06/22/24 06/22/24 06/22/24 11:55 17:04 20:26 Estim Creat Clear Calc Estimated GFR POC Glucose 301 H 305 H 336 H 06/22/24 06/23/24 06/23/24 21:24 05:50 07:34 Estim Creat Clear Calc 45.4 Estimated GFR 43 POC Glucose 314 H 183 H 06/23/24 11:16 Estim Creat Clear Calc Estimated GFR POC Glucose 332 H Microbiology Microbiology Results: Microbiology 06/21/24 23:43 Blood Culture - Preliminary Blood - Venous No growth after 24 hours. 06/21/24 23:44 Blood Culture - Preliminary Blood - Venous No growth after 24 hours. Assessment and Plan (1) Hypoxia: Status: Acute (2) Pneumonia: Status: Acute Plan 48-year-old male with pertinent history of insulin-dependent diabetes mellitus, hypertension, mood disorder, COPD with chronic hypoxia on prn home night time O2, alcohol use disorder, congestive heart failure with preserved EF, gastroesophageal reflux disease with esophagitis, alcohol use disorder, CKD stage 3 who presents to the emergency department for evaluation of dyspnea. Acute hypoxic respiratory failure and sepsis due to pneumonia,HfpEF execerebation: sob seems somewhat improving, blood cultures continue supplemental oxygen, empiric broad-spectrum IV antibiotics. Lactic acid normal bnp slightly up moniter tele ,i/o, daily weights blood culture neg 24hrs . CT chest reviewed-pneumonia vs chf Consulting pulmonology- continue antibiotics , iv lasix added,sob imrpoving but added cardiology eval. Acute kidney injury on chronic kidney disease: cr 1.8-2 cr 1.7 COPD with chronic hypoxic respiratory failure on p.r.n. home nighttime O2: No exacerbation during admission. Continue home inhaler Insulin-dependent diabetes mellitus with hyperglycemia: added lantus 20 bid ,fs with sliding scale Congestive heart failure with preserved EF: No exacerbation during admission continue home lasix Hypertension: hold amlodipine ,continue metoprolol. Mood disorder: Continue home mood stabilizers Esophagitis/GERD: On fluconazole and PPI Iron deficiency anemia: Continue iron supplementation DVT prophylaxis: Lovenox Full code ongoing hospital stay need ahrf-sec to pneumonia /chf - for supplemental oxygen, IV antibiotics (as above), iv lasix , which is not possible in a lesser acute setting. Specialist consult pending Quality Stroke Does the patient have a stroke diagnosis?: No VTE Prior VTE?: No VTE Risk Level:: Medical - moderate - high VTE Device Contraindication: Treatment Not Indicated VTE Drug Contraindication: N/A - Med Ordered
[2024-06-23] MEDS: Fluticasone/Vilanterol 100/25 BLST.W.DEV 1 PUFF INHALE (11:45)
[2024-06-23] MEDS: cefTRIAXone sodium 1 GM in 0.9 % Sodium Chloride 50 ML IV (15:08)
[2024-06-23] MEDS: Azithromycin 500 MG in 0.9 % Sodium Chloride 250 ML 125 MG IV (15:59)
[2024-06-23 16:34] LABS: Glucose, Whole Blood 148 mg/dL (60-115)
--- NOTE | 2024-06-23 19:46 | PM.EVENT ---
Event Note Date of Service: 06/23/24 Event Note: still significantly hypoxic, no significant net negative, will change to lasix drip Time Spent With Patient Time: Total time managing care of this patient today ____ minutes.
[2024-06-23] MEDS: Furosemide 200 MG in 0.9 % Sodium Chloride 80 ML IVCONT (20:06)
[2024-06-23 20:20] LABS: Glucose, Whole Blood 149 mg/dL (60-115)
--- NOTE | 2024-06-23 20:34 | PC.NURSE ---
Assumed care of patient at 19:00. Patient noted to be desatting to 84-86% on 8L [place] nc in place on assuming care. Pt A&Ox4, texting on his phone in no visible distress. Breathing observed even and unlabored. Pt denied SOB. Lungs auscultated, dim with crackles in mid and lower jimenez. NC increased per protocol up to 12L with continued desats despite boosting and other interventions. Respiratory notified of increasing o2 and to bedside per telegraphic typewriter repairer request, covering Dr. Cifuentes notified and to bedside. CXR deferred, lasix gtt ordered and initiated. Pt placed on bipap / by RT as discussed with MD, which pt is tolerating at this time. Pt is NSR 80's on tele. +pp/cms. Nursing corrections unit supervisor made aware of situation and level of care escalated to med-tele. Report called to receiving RN. Patient transported in stable condition with all belongings by telegraphic typewriter repairer to s485 at 20:45. Placed on HFNC by RT per Dr. Mercer recommendations on arrival to s4.
[2024-06-23 21:06] LABS: Glucose, Whole Blood 133 mg/dL (60-115)
[2024-06-23] MEDS: traZODone HCL 100 MG TABLET PO (21:52)
[2024-06-23] MEDS: Melatonin 3 MG TABLET 6 MG PO (21:53)
[2024-06-24] VITALS (16 sets, daily range): BP systolic 115–144; BP diastolic 54–67; PULSE 75–92; RESP 16–20; TEMP 36.4–37.4; O2SAT 84–100; BMI 23.7
[2024-06-24 01:38] LABS: Glucose, Whole Blood 194 mg/dL (60-115)
[2024-06-24 05:02] LABS: Glucose, Whole Blood 124 mg/dL (60-115)
[2024-06-24] MEDS: Omeprazole 20 MG CAPSULE.DR PO ×2 (05:03→17:28)
[2024-06-24 07:30] LABS: Glucose, Whole Blood 105 mg/dL (60-115)
[2024-06-24] MEDS: Albuterol/Iprat 2.5/0.5MG 3 ML AMPUL.NEB INHALE ×4 (08:10→19:35)
[2024-06-24] MEDS: Fluticasone/Vilanterol 100/25 BLST.W.DEV 1 PUFF INHALE (08:10)
[2024-06-24] MEDS: Isosorbide Mononitrate 30 MG TAB.ER.24H PO (09:33)
[2024-06-24] MEDS: hydrALAZINE HCl 50 MG TABLET 100 MG PO ×3 (09:33→19:40)
[2024-06-24] MEDS: Magnesium Oxide 400 MG TABLET PO ×2 (09:33→17:28)
[2024-06-24] MEDS: Gabapentin 100 MG CAPSULE PO ×3 (09:33→19:40)
[2024-06-24] MEDS: Atorvastatin Calcium 40 MG TABLET PO (09:33)
[2024-06-24] MEDS: Sucralfate 1 GM TABLET PO ×4 (09:34→19:40)
[2024-06-24] MEDS: Escitalopram Oxalate 10 MG TABLET PO (09:34)
[2024-06-24] MEDS: Ferrous Sulfate 324 MG TABLET.DR PO (09:34)
[2024-06-24] MEDS: Metoprolol Succinate ER 100 MG TAB.ER.24H PO (09:34)
[2024-06-24] MEDS: Folic Acid 1 MG TABLET PO (09:34)
[2024-06-24] MEDS: Aspirin Enteric Coated 81 MG TABLET.DR PO (09:34)
[2024-06-24] MEDS: Thiamine HCL 100 MG TABLET PO (09:34)
[2024-06-24] MEDS: Ascorbic Acid 250 MG TABLET PO (09:35)
[2024-06-24] MEDS: Enoxaparin Sodium 40 MG/0.4 ML SYRINGE SUBCUT (09:35)
[2024-06-24] MEDS: 0.9 % Sodium Chloride Flush 3 ML SYRINGE IVFLUSH ×2 (09:35→19:41)
[2024-06-24] MEDS: Nicotine 14 MG PATCH.TD24 TRANSDERMA (09:35)
[2024-06-24] MEDS: Insulin Glargine,Hum.rec.anlog 100 UNIT/ML 10 ML VIAL 20 UNIT SUBCUT ×2 (09:49→19:41)
[2024-06-24 11:18] LABS: Anion Gap 13 (12-20); Blood Urea Nitrogen 25 mg/dL (9-16); Calcium 9.3 mg/dL (8.4-10.2); Carbon Dioxide 24 mmol/L (22-29); Chloride 107 mmol/L (96-108); Creatinine Clr Calc Pharmacy 49.8; Estimated Glomerular Filt Rate 48; Glucose Random 202 mg/dL (60-115); Sodium 140 mmol/L (135-145)
[2024-06-24 11:23] LABS: B Type Natriuretic Peptide 245 pg/mL (<100)
[2024-06-24 11:42] LABS: Glucose, Whole Blood 200 mg/dL (60-115)
--- NOTE | 2024-06-24 12:15 | P.CONNP_ITS ---
History of Present Illness Reason for Consult Consult date: 06/24/24 Reason for consult: KELVIN and CKD Chief Complaint Chief complaint: Dyspnea History of Present Illness Narrative: 48-year-old male with pertinent history of insulin-dependent diabetes mellitus, hypertension, mood disorder, COPD with chronic hypoxia on prn home night time O2, alcohol use disorder, congestive heart failure with preserved EF, esophagitis with gastroesophageal reflux disease, alcohol use disorder, CKD stage 3 who presents to the emergency department for evaluation of dyspnea. Of note, patient was recently admitted on 06/11 with decompensated congestive heart failure and discharged on 06/19. Patient states he continued to be dyspneic at home. He tried to go to his bathroom and came back extremely short of breath with SpO2 in the 70s. Also reports productive cough. He was discharged few days ago. [facility] Past Medical History Medical History KELVIN (acute kidney injury) Hypertension Chronic heart failure with preserved ejection fraction (HFpEF) Acute respiratory failure with hypoxia Congestive heart failure CKD (chronic kidney disease) stage 1, GFR 90 ml/min or greater Depression COPD exacerbation YARELIS (obstructive sleep apnea) CHF exacerbation Hypoxia Acute respiratory failure Uncontrolled hypertension Acute on chronic diastolic (congestive) heart failure Acute on chronic anemia Hyperglycemia due to type 2 diabetes mellitus YARELIS (obstructive sleep apnea) Congestive heart failure Anxiety HLD (hyperlipidemia) Diabetes Hypercholesteremia HTN (hypertension) Asthma PAD (peripheral artery disease) Family History Family History Father Alzheimer disease CAD (coronary artery disease) Surgical History Surgical History History of esophagogastroduodenoscopy S/P angiogram of extremity Social History Social History Household Members: Family Household Members Other:: brother Housing: Apartment Do you presently have visiting nurse or other home services: Yes ([facility] for [facility] help and meals) Unable to assess alcohol history related to: Unknown Alcohol intake: former Comment: pt is independent in room Patient Tobacco Use Status: Current everyday Tobacco user Tobacco use type: Cigarette Cigarettes Per Day: 5 Years Smoked: 33 Smoked in Last 30 Days: Yes e-Cigarette/Vaping Use: Never Used Patient Interested in Nicotine Replacement: Yes (requested patch) Patient Given Instructions on How to Stop Smoking: Yes Date Education Initiated: 06/23/24 Second Hand Smoke Exposure: Yes (brother smokes in home) Use of substances other than those prescribed or required for medical reasons: No Substance Use Type: Marijuana Currently Displaying Signs/Symptoms of Drug Intoxication Withdrawal: No Any prior treatment program specific to substance use: No Have you been hit, kicked, punched, or otherwise hurt by someone within the past year? If so, by whom?: No Do you feel safe in your current relationship?: Yes Is there a partner from a previous relationship who is making you feel unsafe now?: No Are you made to feel afraid or neglected: No Advance Directives: Yes Advance Directives on File: Yes Advance Directives Date on File: 06/21/21 Do you have a plan to hurt others: No Plan Recently lost weight without trying: No How much weight loss: Not applicable Eating poorly because of decreased appetite: No Nutrition screen score: 0 Nutrition Risks: No Nutritional Risk Poor oral hygiene: No service: No Current occupational status: disabled Meds Allergies Allergy/AdvReac Type Severity Reaction Status Date / Time dulaglutide [From Trulicity] Allergy Unknown Verified 06/21/24 19:27 metformin [METFORMIN] AdvReac Mild DIARRHEA, Verified 06/21/24 19:27 nausea and vomiting Active Medications: Current Medications Acetaminophen (Acetaminophen 325 Mg Tablet) 650 mg PO Q6H PRN PRN Reason: Pain, Mild (Pain Scale 1-3), fever or headache Albuterol Sulfate (Albuterol Sulfate 90 Mcg 8 Gm Inhaler) 2 puff INHALE Q4H PRN PRN Reason: bronchospasm Albuterol/Ipratropium (Albuterol/Iprat 2.5/0.5mg 3 Ml Ampul.Neb) 3 ml INHALE RQ4H WHILE AWAKE [facility] Last Admin: 06/24/24 11:39 Dose: 3 ml Amlodipine Besylate (Amlodipine Besylate 10 Mg Tablet) 10 mg PO DAILY [facility]; Protocol Last Admin: 06/22/24 08:51 Dose: 10 mg Ascorbic Acid (Ascorbic Acid 250 Mg Tablet) 250 mg PO DAILY [facility] Last Admin: 06/24/24 09:35 Dose: 250 mg Aspirin (Aspirin Enteric Coated 81 Mg Tablet.) 81 mg PO DAILY [facility] Last Admin: 06/24/24 09:34 Dose: 81 mg Atorvastatin Calcium (Atorvastatin Calcium 40 Mg Tablet) 40 mg PO DAILY [facility] Last Admin: 06/24/24 09:33 Dose: 40 mg Calcium Carbonate (Calcium Carbonate 750 Mg Tab.Chew) 750 mg PO Q4H PRN PRN Reason: Heartburn Enoxaparin Sodium (Enoxaparin Sodium 40 Mg/0.4 Ml Syringe) 40 mg SUBCUT DAILY [facility] Last Admin: 06/24/24 09:35 Dose: 40 mg Escitalopram Oxalate (Escitalopram Oxalate 10 Mg Tablet) 10 mg PO DAILY [facility] Last Admin: 06/24/24 09:34 Dose: 10 mg Ferrous Sulfate (Ferrous Sulfate 324 Mg Tablet.) 324 mg PO DAILY [facility] Last Admin: 06/24/24 09:34 Dose: 324 mg Fluticasone/Vilanterol (Fluticasone/Vilanterol 100/25 Blst.W.Dev) 1 puff INHALE RDAILY [facility] Last Admin: 06/24/24 08:10 Dose: 1 puff Folic Acid (Folic Acid 1 Mg Tablet) 1 mg PO DAILY [facility] Last Admin: 06/24/24 09:34 Dose: 1 mg Gabapentin (Gabapentin 100 Mg Capsule) 100 mg PO TID [facility] Last Admin: 06/24/24 09:33 Dose: 100 mg Glucose (Glucose Gel 15 Gm Gel..Gram.) 15 gm PO Q15M PRN; Protocol PRN Reason: per Hypoglycemia Standing Ord. Hydralazine HCl (Hydralazine Hcl 50 Mg Tablet) 100 mg PO TID [facility]; Protocol Last Admin: 06/24/24 09:33 Dose: 100 mg Dextrose (D10) 250 mls @ 750 mls/hr IV Q15M PRN; Protocol PRN Reason: per Hypoglycemia Standing Ord. Ceftriaxone Sodium 1 gm/ (Sodium Chloride) 50 mls @ 100 mls/hr IV Q24H [facility] Last Infusion: 06/23/24 15:47 Dose: Infused Azithromycin 500 mg/ Sodium (Chloride) 250 mls @ 125 mls/hr IV Q24H [facility] Last Infusion: 06/23/24 18:11 Dose: Infused Furosemide 200 mg/ Sodium (Chloride) 100 mls @ 2.5 mls/hr IVCONT .Q24H [facility] Last Admin: 06/23/24 20:06 Dose: 5 mg/hr, 2.5 mls/hr Insulin Glargine (Insulin Glargine,Hum.Rec.Anlog 100 Unit/Ml 10 Ml Vial) 20 unit SUBCUT BID [facility] Last Admin: 06/24/24 09:49 Dose: 20 unit Insulin Human Lispro (Insulin Lispro 100 Unit/Ml 3 Ml Vial) 0 unit SUBCUT QIDACHS [facility]; Protocol Last Admin: 06/24/24 08:18 Dose: Not Given Isosorbide Mononitrate (Isosorbide Mononitrate 30 Mg Tab.Er.24h) 30 mg PO DAILY [facility]; Protocol Last Admin: 06/24/24 09:33 Dose: 30 mg Magnesium Hydroxide (Milk Of Magnesia 30 Ml Oral.Susp) 30 ml PO DAILY PRN PRN Reason: Constipation Magnesium Oxide (Magnesium Oxide 400 Mg Tablet) 400 mg PO BIDPC [facility] Last Admin: 06/24/24 09:33 Dose: 400 mg Melatonin (Melatonin 3 Mg Tablet) 6 mg PO BEDTIME PRN PRN Reason: Insomnia Last Admin: 06/23/24 21:53 Dose: 6 mg Metoprolol Succinate (Metoprolol Succinate Er 100 Mg Tab.Er.24h) 100 mg PO DAILY [facility]; Protocol Last Admin: 06/24/24 09:34 Dose: 100 mg Nicotine (Nicotine 14 Mg Patch.Td24) 14 mg TRANSDERMA DAILY [facility] Last Admin: 06/24/24 09:35 Dose: 14 mg Omeprazole (Omeprazole 20 Mg Capsule.Dr) 20 mg PO BID@0630,1630 [facility] Last Admin: 06/24/24 05:03 Dose: 20 mg Ondansetron HCl (Ondansetron Hcl 4 Mg/2 Ml Vial) 4 mg IVPUSH Q8H PRN PRN Reason: Nausea and Vomiting Sodium Chloride (0.9 % Sodium Chloride Flush 3 Ml Syringe) 3 ml IVFLUSH QSHIFT [facility] Last Admin: 06/24/24 09:35 Dose: 3 ml Sucralfate (Sucralfate 1 Gm Tablet) 1 gm PO QIDACHS [facility] Last Admin: 06/24/24 09:34 Dose: 1 gm Thiamine HCl (Thiamine Hcl 100 Mg Tablet) 100 mg PO DAILY [facility] Last Admin: 06/24/24 09:34 Dose: 100 mg Trazodone HCl (Trazodone Hcl 100 Mg Tablet) 100 mg PO BEDTIME [facility] Last Admin: 06/23/24 21:52 Dose: 100 mg Home Medications ?Medication ?Instructions ?Recorded ?Confirmed ?Last Taken ?Type escitalopram oxalate 10 mg tablet 10 mg PO DAILY 08/01/22 06/22/24 06/10/24 History trazodone 50 mg tablet 100 mg PO BEDTIME 08/01/22 06/22/24 06/10/24 History aspirin 81 mg tablet,delayed 81 mg PO DAILY 10/06/22 06/22/24 06/10/24 History release atorvastatin 40 mg tablet 40 mg PO DAILY 10/06/22 06/22/24 06/10/24 History gabapentin 300 mg capsule 300 mg PO TID 10/06/22 06/22/24 06/10/24 History metoprolol succinate 100 mg 100 mg PO DAILY 10/06/22 06/22/24 06/10/24 History tablet,extended release 24 hr furosemide 40 mg tablet 80 mg PO DAILY 06/26/23 06/22/24 06/10/24 History furosemide 40 mg tablet 40 mg PO BEDTIME 11/24/23 06/22/24 06/10/24 History fluticasone 250 mcg-salmeterol 50 1 ea inhalation BID 12/22/23 06/22/24 06/10/24 History mcg/dose blistr powdr for inhalation (Advair Diskus) albuterol sulfate 90 mcg/actuation 2 puff inhalation Q4H PRN 04/26/24 06/22/24 Unknown History aerosol inhaler bronchospasm insulin lispro 100 unit/mL 1 sliding scale dose subcut TIDAC 04/26/24 06/22/24 06/10/24 History subcutaneous solution amlodipine 5 mg tablet 10 mg PO DAILY 06/02/24 06/22/24 06/10/24 History diclofenac sodium 1 % topical gel 1 g topical QID PRN Pain 06/02/24 06/22/24 Unknown History insulin pump cartridge,automated 06/11/24 06/11/24 Unknown History dose,BT with controller subcutaneous (Omnipod 5 G6 Intro Kit (Gen 5) subcutaneous cartridge with controller) Physical Exam Vital Signs: Last Vital Signs Temp 98.3 F 06/24/24 07:40 Pulse 80 06/24/24 11:39 Resp 18 06/24/24 11:39 BP 144/67 H 06/24/24 07:40 Pulse Ox 96 06/24/24 07:40 O2 Del Method BiPAP 06/24/24 07:40 O2 Flow Rate 45 06/24/24 01:00 FiO2 35 06/24/24 04:27 BMI result Body Mass Index 23.7 Const General: ill appearing Neck Neck: Yes supple Resp Auscultation: clear to auscultation bilaterally Cardio Palpation: no palpable S3 Heart sounds: no rubs GI Palpation (GI): Soft to palpation Auscultation: normal bowel sounds Neuro Motor exam (neuro): no asterixis Results Lab Results 06/22/24 04:50 06/24/24 10:52 Lab results: Chemistry 06/21/24 06/22/24 06/22/24 20:13 04:50 09:30 Sodium 141 143 138 Potassium 3.7 4.4 4.3 Carbon Dioxide 24 26 22 BUN 50 H 45 H 46 H Creatinine 2.23 H 2.20 H 2.30 H Calcium 9.1 D 8.7 8.4 06/23/24 06/24/24 05:50 10:52 Sodium 140 Potassium 4.0 Carbon Dioxide 24 BUN 25 H Creatinine 1.71 H 1.56 H Calcium 9.3 D Hematology 06/21/24 06/22/24 20:13 04:50 WBC 19.1 H 15.7 H Hgb 8.9 L 8.3 L Plt Count 446 H 429 H Assessment and Plan (1) Acute kidney injury superimposed on CKD: Status: Acute Plan KELVIN due to compromise in renal perfusion with resultant tubular injury Creatinine is trending down. No reason to suspect GN/AIN; Continue diuresis Keep O > I Continue overt nephrotoxic agents and hypotension. Continue current supportive management for now; Procedures Date of Service Date of Service: 06/24/24
[2024-06-24] MEDS: Insulin Lispro 100 UNIT/ML 3 ML VIAL SUBCUT ×2 (12:35→19:40)
--- NOTE | 2024-06-24 14:38 | MHC.CM.PN ---
Per rounds, pt is not ready for DC, he requires supplemental O2, IV ABX, IV diuretic. DCP is home, resume services. CM to follow for DC needs.
[2024-06-24] MEDS: cefTRIAXone sodium 1 GM in 0.9 % Sodium Chloride 50 ML IV (15:57)
--- NOTE | 2024-06-24 16:00 | HO.PM.IMPN ---
Subjective Subjective Date of Service: 06/24/24 Interval History: chf execerbation/pneumonia Review of Systems sob seems improving producing good urine no fevers or chills Physical Exam Vital Signs: Vital Signs: Last Vital Signs Temp 98.3 F 06/24/24 07:40 Pulse 80 06/24/24 15:16 Resp 18 06/24/24 15:16 BP 144/67 H 06/24/24 07:40 Pulse Ox 96 06/24/24 07:40 O2 Del Method BiPAP 06/24/24 07:40 O2 Flow Rate 45 06/24/24 01:00 FiO2 35 06/24/24 04:27 BMI result Body Mass Index 23.7 Appearance: Alert.? Oriented X3.? cvs: rrr, [id number] . res: air enrty dimisnhed , few scattered rales abd: no rebound or guarding ,nt, bs present. ext pulses present , no cyanosis . neuro: axo3 , nonfocal. Objective Data Active Medications Acetaminophen (Acetaminophen 325 Mg Tablet) 650 mg PO Q6H PRN PRN Reason: Pain, Mild (Pain Scale 1-3), fever or headache Albuterol Sulfate (Albuterol Sulfate 90 Mcg 8 Gm Inhaler) 2 puff INHALE Q4H PRN PRN Reason: bronchospasm Albuterol/Ipratropium (Albuterol/Iprat 2.5/0.5mg 3 Ml Ampul.Neb) 3 ml INHALE RQ4H WHILE AWAKE [facility] Last Admin: 06/24/24 15:16 Dose: 3 ml Documented By: AMADO Amlodipine Besylate (Amlodipine Besylate 10 Mg Tablet) 10 mg PO DAILY [facility]; Protocol Last Admin: 06/22/24 08:51 Dose: 10 mg Documented By: RENETTA Ascorbic Acid (Ascorbic Acid 250 Mg Tablet) 250 mg PO DAILY [facility] Last Admin: 06/24/24 09:35 Dose: 250 mg Documented By: SYDNIE Aspirin (Aspirin Enteric Coated 81 Mg Tablet.) 81 mg PO DAILY [facility] Last Admin: 06/24/24 09:34 Dose: 81 mg Documented By: SYDNIE Atorvastatin Calcium (Atorvastatin Calcium 40 Mg Tablet) 40 mg PO DAILY [facility] Last Admin: 06/24/24 09:33 Dose: 40 mg Documented By: SYDINE Calcium Carbonate (Calcium Carbonate 750 Mg Tab.Chew) 750 mg PO Q4H PRN PRN Reason: Heartburn Enoxaparin Sodium (Enoxaparin Sodium 40 Mg/0.4 Ml Syringe) 40 mg SUBCUT DAILY [facility] Last Admin: 06/24/24 09:35 Dose: 40 mg Documented By: SYDNIE Escitalopram Oxalate (Escitalopram Oxalate 10 Mg Tablet) 10 mg PO DAILY [facility] Last Admin: 06/24/24 09:34 Dose: 10 mg Documented By: SYDNIE Ferrous Sulfate (Ferrous Sulfate 324 Mg Tablet.Dr) 324 mg PO DAILY [facility] Last Admin: 06/24/24 09:34 Dose: 324 mg Documented By: SYDNIE Fluticasone/Vilanterol (Fluticasone/Vilanterol 100/25 Blst.W.Dev) 1 puff INHALE RDAILY [facility] Last Admin: 06/24/24 08:10 Dose: 1 puff Documented By: JESSE Folic Acid (Folic Acid 1 Mg Tablet) 1 mg PO DAILY [facility] Last Admin: 06/24/24 09:34 Dose: 1 mg Documented By: SYDNIE Gabapentin (Gabapentin 100 Mg Capsule) 100 mg PO TID [facility] Last Admin: 06/24/24 09:33 Dose: 100 mg Documented By: SYDNIE Glucose (Glucose Gel 15 Gm Gel..Gram.) 15 gm PO Q15M PRN; Protocol PRN Reason: per Hypoglycemia Standing Ord. Hydralazine HCl (Hydralazine Hcl 50 Mg Tablet) 100 mg PO TID [facility]; Protocol Last Admin: 06/24/24 09:33 Dose: 100 mg Documented By: SYDNIE Dextrose (D10) 250 mls @ 750 mls/hr IV Q15M PRN; Protocol PRN Reason: per Hypoglycemia Standing Ord. Ceftriaxone Sodium 1 gm/ (Sodium Chloride) 50 mls @ 100 mls/hr IV Q24H [facility] Last Infusion: 06/23/24 15:47 Dose: Infused Documented By: NIC Azithromycin 500 mg/ Sodium (Chloride) 250 mls @ 125 mls/hr IV Q24H [facility] Last Infusion: 06/23/24 18:11 Dose: Infused Documented By: NIC Furosemide 200 mg/ Sodium (Chloride) 100 mls @ 2.5 mls/hr IVCONT .Q24H [facility] Last Admin: 06/23/24 20:06 Dose: 5 mg/hr, 2.5 mls/hr Documented By: TALISHA Insulin Glargine (Insulin Glargine,Hum.Rec.Anlog 100 Unit/Ml 10 Ml Vial) 20 unit SUBCUT BID [facility] Last Admin: 06/24/24 09:49 Dose: 20 unit Documented By: SYDNIE Insulin Human Lispro (Insulin Lispro 100 Unit/Ml 3 Ml Vial) 0 unit SUBCUT QIDACHS [facility]; Protocol Last Admin: 06/24/24 12:35 Dose: 2 unit Documented By: SYDNIE Isosorbide Mononitrate (Isosorbide Mononitrate 30 Mg Tab.Er.24h) 30 mg PO DAILY [facility]; Protocol Last Admin: 06/24/24 09:33 Dose: 30 mg Documented By: SYDNIE Magnesium Hydroxide (Milk Of Magnesia 30 Ml Oral.Susp) 30 ml PO DAILY PRN PRN Reason: Constipation Magnesium Oxide (Magnesium Oxide 400 Mg Tablet) 400 mg PO BIDPC [facility] Last Admin: 06/24/24 09:33 Dose: 400 mg Documented By: SYDNIE Melatonin (Melatonin 3 Mg Tablet) 6 mg PO BEDTIME PRN PRN Reason: Insomnia Last Admin: 06/23/24 21:53 Dose: 6 mg Documented By: STEPHIE Comments: pt requested to help with Insomnia Metoprolol Succinate (Metoprolol Succinate Er 100 Mg Tab.Er.24h) 100 mg PO DAILY [facility]; Protocol Last Admin: 06/24/24 09:34 Dose: 100 mg Documented By: SYDNIE Nicotine (Nicotine 14 Mg Patch.Td24) 14 mg TRANSDERMA DAILY [facility] Last Admin: 06/24/24 09:35 Dose: 14 mg Documented By: SYDNIE Omeprazole (Omeprazole 20 Mg Capsule.Dr) 20 mg PO BID@0630,1630 [facility] Last Admin: 06/24/24 05:03 Dose: 20 mg Documented By: STEPHIE Ondansetron HCl (Ondansetron Hcl 4 Mg/2 Ml Vial) 4 mg IVPUSH Q8H PRN PRN Reason: Nausea and Vomiting Sodium Chloride (0.9 % Sodium Chloride Flush 3 Ml Syringe) 3 ml IVFLUSH QSHIFT [facility] Last Admin: 06/24/24 09:35 Dose: 3 ml Documented By: SYDNIE Sucralfate (Sucralfate 1 Gm Tablet) 1 gm PO QIDACHS [facility] Last Admin: 06/24/24 12:34 Dose: 1 gm Documented By: SYDNIE Thiamine HCl (Thiamine Hcl 100 Mg Tablet) 100 mg PO DAILY [facility] Last Admin: 06/24/24 09:34 Dose: 100 mg Documented By: SYDNIE Trazodone HCl (Trazodone Hcl 100 Mg Tablet) 100 mg PO BEDTIME [facility] Last Admin: 06/23/24 21:52 Dose: 100 mg Documented By: THOMPSM Labs 06/22/24 04:50 06/24/24 10:52 Labs: Laboratory Results - last 24 hr 06/23/24 06/23/24 06/23/24 16:29 20:09 21:01 Anion Gap Estim Creat Clear Calc Estimated GFR POC Glucose 148 H 149 H 133 H Random Glucose Calcium B-Natriuretic Peptide 06/24/24 06/24/24 06/24/24 01:33 04:58 07:22 Anion Gap Estim Creat Clear Calc Estimated GFR POC Glucose 194 H 124 H 105 Random Glucose Calcium B-Natriuretic Peptide 06/24/24 06/24/24 10:52 11:30 Anion Gap 13 Estim Creat Clear Calc 49.8 Estimated GFR 48 POC Glucose 200 H Random Glucose 202 H Calcium 9.3 D B-Natriuretic Peptide 245 H Microbiology Microbiology Results: Microbiology 06/21/24 23:43 Blood Culture - Preliminary Blood - Venous No growth after 48 hours. 06/21/24 23:44 Blood Culture - Preliminary Blood - Venous No growth after 48 hours. Assessment and Plan (1) Pneumonia: Status: Acute (2) Hypoxia: Status: Acute (3) Acute kidney injury superimposed on CKD: Status: Acute (4) Acute exacerbation of chronic heart failure: Status: Acute Assessment and Plan: 48-year-old male with pertinent history of insulin-dependent diabetes mellitus, hypertension, mood disorder, COPD with chronic hypoxia on prn home night time O2, alcohol use disorder, congestive heart failure with preserved EF, gastroesophageal reflux disease with esophagitis, alcohol use disorder, CKD stage 3 who presents to the emergency department for evaluation of dyspnea. Acute hypoxic respiratory failure and sepsis due to pneumonia,acute on ch HfpEF execerebation: sob seems somewhat improving, blood cultures continue supplemental oxygen, empiric broad-spectrum IV antibiotics. Lactic acid normal bnp improving moniter tele ,i/o 1.6 liter negative, daily weights blood culture neg 24hrs . CT chest reviewed-pneumonia vs chf Consulting pulmonology- continue antibiotics , iv lasix drip added,sob imrpoving ,off highg flow -this morning transition to N[place] 2 liter cardiology eval. Acute kidney injury on chronic kidney disease: cr 1.8-2 cr 1.5 COPD with chronic hypoxic respiratory failure on p.r.n. home nighttime O2: No exacerbation during admission. Continue home inhaler Insulin-dependent diabetes mellitus with hyperglycemia: added lantus 20 bid ,fs with sliding scale Congestive heart failure with preserved EF: as above. Hypertension: hold amlodipine ,continue metoprolol. Mood disorder: Continue home mood stabilizers Esophagitis/GERD: On fluconazole and PPI Iron deficiency anemia: Continue iron supplementation DVT prophylaxis: Lovenox Full code ongoing hospital stay need ahrf-sec to pneumonia /chf - for supplemental oxygen, IV antibiotics (as above), iv lasix , which is not possible in a lesser acute setting. Specialist consult pending Quality Stroke Does the patient have a stroke diagnosis?: No VTE Prior VTE?: No VTE Risk Level:: Medical - moderate - high VTE Device Contraindication: Treatment Not Indicated VTE Drug Contraindication: N/A - Med Ordered
[2024-06-24] MEDS: Azithromycin 500 MG in 0.9 % Sodium Chloride 250 ML 125 MG IV (16:42)
[2024-06-24 17:02] LABS: Glucose, Whole Blood 128 mg/dL (60-115)
[2024-06-24] MEDS: traZODone HCL 100 MG TABLET PO (19:40)
[2024-06-24 19:50] LABS: Glucose, Whole Blood 163 mg/dL (60-115)
[2024-06-24] MEDS: Furosemide 200 MG in 0.9 % Sodium Chloride 80 ML IVCONT (21:47)
[2024-06-25] VITALS (13 sets, daily range): BP systolic 109–151; BP diastolic 53–73; PULSE 59–84; RESP 16–20; TEMP 36–36.7; O2SAT 90–98; BMI 22.5
[2024-06-25] MEDS: Omeprazole 20 MG CAPSULE.DR PO ×2 (05:27→15:39)
[2024-06-25 07:09] LABS: Glucose, Whole Blood 88 mg/dL (60-115)
[2024-06-25] MEDS: Albuterol/Iprat 2.5/0.5MG 3 ML AMPUL.NEB INHALE ×4 (07:55→19:50)
[2024-06-25] MEDS: Fluticasone/Vilanterol 100/25 BLST.W.DEV 1 PUFF INHALE (07:55)
[2024-06-25] MEDS: Insulin Glargine,Hum.rec.anlog 100 UNIT/ML 10 ML VIAL 20 UNIT SUBCUT ×2 (08:01→21:08)
[2024-06-25] MEDS: Thiamine HCL 100 MG TABLET PO (08:02)
[2024-06-25] MEDS: hydrALAZINE HCl 50 MG TABLET 100 MG PO ×3 (08:02→21:09)
[2024-06-25] MEDS: Nicotine 14 MG PATCH.TD24 TRANSDERMA (08:02)
[2024-06-25] MEDS: Metoprolol Succinate ER 100 MG TAB.ER.24H PO (08:02)
[2024-06-25] MEDS: Sucralfate 1 GM TABLET PO ×4 (08:02→21:09)
[2024-06-25] MEDS: Enoxaparin Sodium 40 MG/0.4 ML SYRINGE SUBCUT (08:02)
[2024-06-25] MEDS: Folic Acid 1 MG TABLET PO (08:03)
[2024-06-25] MEDS: Ascorbic Acid 250 MG TABLET PO (08:03)
[2024-06-25] MEDS: Atorvastatin Calcium 40 MG TABLET PO (08:03)
[2024-06-25] MEDS: Escitalopram Oxalate 10 MG TABLET PO (08:03)
[2024-06-25] MEDS: Aspirin Enteric Coated 81 MG TABLET.DR PO (08:03)
[2024-06-25] MEDS: Ferrous Sulfate 324 MG TABLET.DR PO (08:03)
[2024-06-25] MEDS: Gabapentin 100 MG CAPSULE PO ×3 (08:03→21:09)
[2024-06-25] MEDS: Magnesium Oxide 400 MG TABLET PO ×2 (08:03→16:22)
[2024-06-25] MEDS: Isosorbide Mononitrate 30 MG TAB.ER.24H PO (08:03)
[2024-06-25] MEDS: 0.9 % Sodium Chloride Flush 3 ML SYRINGE IVFLUSH ×3 (08:11→21:11)
[2024-06-25 09:57] LABS: Anion Gap 15 (12-20); Blood Urea Nitrogen 22 mg/dL (9-16); Calcium 9.1 mg/dL (8.4-10.2); Carbon Dioxide 25 mmol/L (22-29); Chloride 104 mmol/L (96-108); Creatinine Clr Calc Pharmacy 47.8; Estimated Glomerular Filt Rate 46; Glucose Random 198 mg/dL (60-115); Potassium 3.7 mmol/L (3.3-5.1); Sodium 140 mmol/L (135-145)
[2024-06-25 10:37] LABS: B Type Natriuretic Peptide 186 pg/mL (<100)
[2024-06-25 10:54] LABS: Glucose, Whole Blood 218 mg/dL (60-115)
[2024-06-25] MEDS: Insulin Lispro 100 UNIT/ML 3 ML VIAL SUBCUT ×2 (11:27→16:22)
--- NOTE | 2024-06-25 13:53 | P.PNIM_ITS ---
Subjective Subjective Date of Service: 06/25/24 Interval History: chf execerbation/pneumonia Review of Systems sob somewhat improving off high flow , on oxygen no fever or chills Physical Exam 2 Vital Signs: Vital Signs: Last Vital Signs Temp 96.9 F 06/25/24 11:10 Pulse 79 06/25/24 11:25 Resp 20 06/25/24 11:25 BP 111/57 L 06/25/24 11:10 Pulse Ox 97 06/25/24 11:10 O2 Del Method Nasal Cannula 06/25/24 11:10 O2 Flow Rate 2 06/25/24 11:10 FiO2 35 06/24/24 04:27 BMI result Body Mass Index 22.5 Appearance: Alert.? Oriented X3.? cvs: rrr, [id number] . res: air enrty dimisnhed , few scattered rales abd: no rebound or guarding ,nt, bs present. ext pulses present , no cyanosis . neuro: axo3 , nonfoca Objective Data Active Medications Acetaminophen (Acetaminophen 325 Mg Tablet) 650 mg PO Q6H PRN PRN Reason: Pain, Mild (Pain Scale 1-3), fever or headache Albuterol Sulfate (Albuterol Sulfate 90 Mcg 8 Gm Inhaler) 2 puff INHALE Q4H PRN PRN Reason: bronchospasm Albuterol/Ipratropium (Albuterol/Iprat 2.5/0.5mg 3 Ml Ampul.Neb) 3 ml INHALE RQ4H WHILE AWAKE [facility]CLUDES [facility] Last Admin: 06/25/24 11:24 Dose: 3 ml Documented By: DESHAUN Amlodipine Besylate (Amlodipine Besylate 10 Mg Tablet) 10 mg PO DAILY [facility]; Protocol Last Admin: 06/22/24 08:51 Dose: 10 mg Documented By: RENETTA Ascorbic Acid (Ascorbic Acid 250 Mg Tablet) 250 mg PO DAILY [facility] Last Admin: 06/25/24 08:03 Dose: 250 mg Documented By: AMRIT Aspirin (Aspirin Enteric Coated 81 Mg Tablet.) 81 mg PO DAILY [facility]CLUDES [facility] Last Admin: 06/25/24 08:03 Dose: 81 mg Documented By: AMRIT Atorvastatin Calcium (Atorvastatin Calcium 40 Mg Tablet) 40 mg PO DAILY COUNT [facility]CLUDES [facility] Last Admin: 06/25/24 08:03 Dose: 40 mg Documented By: AMRIT Calcium Carbonate (Calcium Carbonate 750 Mg Tab.Chew) 750 mg PO Q4H PRN PRN Reason: Heartburn Enoxaparin Sodium (Enoxaparin Sodium 40 Mg/0.4 Ml Syringe) 40 mg SUBCUT DAILY [facility]CLUDES [facility] Last Admin: 06/25/24 08:02 Dose: 40 mg Documented By: AMRIT Escitalopram Oxalate (Escitalopram Oxalate 10 Mg Tablet) 10 mg PO DAILY [facility] Last Admin: 06/25/24 08:03 Dose: 10 mg Documented By: AMRIT Ferrous Sulfate (Ferrous Sulfate 324 Mg Tablet.Dr) 324 mg PO DAILY [facility]CLUD[facility] Last Admin: 06/25/24 08:03 Dose: 324 mg Documented By: AMRIT Fluticasone/Vilanterol (Fluticasone/Vilanterol 100/25 Blst.W.Dev) 1 puff INHALE RDAILY COUNT [facility]CLUDES [facility] Last Admin: 06/25/24 07:55 Dose: 1 puff Documented By: DESHAUN Folic Acid (Folic Acid 1 Mg Tablet) 1 mg PO DAILY [facility]CLUDES [facility] Last Admin: 06/25/24 08:03 Dose: 1 mg Documented By: AMRIT Gabapentin (Gabapentin 100 Mg Capsule) 100 mg PO TID COUNT [facility]CLUDES [facility] Last Admin: 06/25/24 08:03 Dose: 100 mg Documented By: AMRIT Glucose (Glucose Gel 15 Gm Gel..Gram.) 15 gm PO Q15M PRN; Protocol PRN Reason: per Hypoglycemia Standing Ord. Hydralazine HCl (Hydralazine Hcl 50 Mg Tablet) 100 mg PO TID COUNT [facility]CLUDES [facility]; Protocol Last Admin: 06/25/24 08:02 Dose: 100 mg Documented By: AMRIT Dextrose (D10) 250 mls @ 750 mls/hr IV Q15M PRN; Protocol PRN Reason: per Hypoglycemia Standing Ord. Ceftriaxone Sodium 1 gm/ (Sodium Chloride) 50 mls @ 100 mls/hr IV Q24H COUNT [facility]CLUDES [facility] Last Infusion: 06/24/24 16:52 Dose: Infused Documented By: SYDNIE Azithromycin 500 mg/ Sodium (Chloride) 250 mls @ 125 mls/hr IV Q24H COUNT [facility]CLUDES [facility] Last Infusion: 06/24/24 19:30 Dose: Infused Documented By: SYDNIE Furosemide 200 mg/ Sodium (Chloride) 100 mls @ 2.5 mls/hr IVCONT .Q24H COUNT [facility]CLUDES [facility] Last Admin: 06/24/24 21:47 Dose: 5 mg/hr, 2.5 mls/hr Documented By: TALISHA Comments: routine 24 hr bag change Insulin Glargine (Insulin Glargine,Hum.Rec.Anlog 100 Unit/Ml 10 Ml Vial) 20 unit SUBCUT BID COUNT INCLUDES [facility] Last Admin: 06/25/24 08:01 Dose: 20 unit Documented By: AMRIT Insulin Human Lispro (Insulin Lispro 100 Unit/Ml 3 Ml Vial) 0 unit SUBCUT QIDACHS COUNT INCLUDES THE [facility]; Protocol Last Admin: 06/25/24 11:27 Dose: 4 unit Documented By: AMRIT Isosorbide Mononitrate (Isosorbide Mononitrate 30 Mg Tab.Er.24h) 30 mg PO DAILY COUNT [facility]CLUDES [facility]; Protocol Last Admin: 06/25/24 08:03 Dose: 30 mg Documented By: AMRIT Magnesium Hydroxide (Milk Of Magnesia 30 Ml Oral.Susp) 30 ml PO DAILY PRN PRN Reason: Constipation Magnesium Oxide (Magnesium Oxide 400 Mg Tablet) 400 mg PO BIDPC COUNT INCLUDES THE [facility] Last Admin: 06/25/24 08:03 Dose: 400 mg Documented By: AMRIT Melatonin (Melatonin 3 Mg Tablet) 6 mg PO BEDTIME PRN PRN Reason: Insomnia Last Admin: 06/23/24 21:53 Dose: 6 mg Documented By: STEPHIE Comments: pt requested to help with Insomnia Metoprolol Succinate (Metoprolol Succinate Er 100 Mg Tab.Er.24h) 100 mg PO DAILY COUNT [facility]CLUDES [facility]; Protocol Last Admin: 06/25/24 08:02 Dose: 100 mg Documented By: AMRIT Nicotine (Nicotine 14 Mg Patch.Td24) 14 mg TRANSDERMA DAILY COUNT INCLUDES [facility] Last Admin: 06/25/24 08:02 Dose: 14 mg Documented By: AMRIT Omeprazole (Omeprazole 20 Mg Capsule.Dr) 20 mg PO BID@0630,1630 [facility]CLUDES [facility] Last Admin: 06/25/24 05:27 Dose: 20 mg Documented By: TALISHA Ondansetron HCl (Ondansetron Hcl 4 Mg/2 Ml Vial) 4 mg IVPUSH Q8H PRN PRN Reason: Nausea and Vomiting Sodium Chloride (0.9 % Sodium Chloride Flush 3 Ml Syringe) 3 ml IVFLUSH QSHIFT COUNT INCLUDES [facility] Last Admin: 06/25/24 08:11 Dose: 3 ml Documented By: AMRIT Sucralfate (Sucralfate 1 Gm Tablet) 1 gm PO QIDACHS COUNT INCLUDES [facility] Last Admin: 06/25/24 11:27 Dose: 1 gm Documented By: AMRIT Thiamine HCl (Thiamine Hcl 100 Mg Tablet) 100 mg PO DAILY COUNT INCLUDES [facility] Last Admin: 06/25/24 08:02 Dose: 100 mg Documented By: AMRIT Trazodone HCl (Trazodone Hcl 100 Mg Tablet) 100 mg PO BEDTIME COUNT INCLUDES [facility] Last Admin: 06/24/24 19:40 Dose: 100 mg Documented By: DARIENK Labs 06/22/24 04:50 06/25/24 09:11 Labs: Laboratory Results - last 24 hr 06/24/24 06/24/24 06/25/24 16:45 19:37 07:02 Anion Gap Estim Creat Clear Calc Estimated GFR POC Glucose 128 H 163 H 88 Random Glucose Calcium B-Natriuretic Peptide 06/25/24 06/25/24 09:11 10:40 Anion Gap 15 Estim Creat Clear Calc 47.8 Estimated GFR 46 POC Glucose 218 H Random Glucose 198 H Calcium 9.1 B-Natriuretic Peptide 186 H Assessment and Plan (1) Hypoxia: Status: Acute (2) Pneumonia: Status: Acute (3) Congestive heart failure: Status: Acute Assessment and Plan: 48-year-old male with pertinent history of insulin-dependent diabetes mellitus, hypertension, mood disorder, COPD with chronic hypoxia on prn home night time O2, alcohol use disorder, congestive heart failure with preserved EF, gastroesophageal reflux disease with esophagitis, alcohol use disorder, CKD stage 3 who presents to the emergency department for evaluation of dyspnea. Acute hypoxic respiratory failure and sepsis due to pneumonia,acute on ch HfpEF execerebation: sob seems somewhat improving, blood cultures continue supplemental oxygen, empiric broad-spectrum IV antibiotics. Lactic acid normal bnp improving moniter tele ,i/o 1.9 liter negative, daily weights blood culture neg 24hrs . CT chest reviewed-pneumonia vs chf Consulting pulmonology- continue antibiotics- ceftriaxone/azithromycin(intiated06/22) , iv lasix drip for 1 more day,sob imrpoving ,taper oxygen to sats 90-92% Acute kidney injury on chronic kidney disease: cr 1.8-2 cr 1.6 COPD with chronic hypoxic respiratory failure on p.r.n. home nighttime O2: No exacerbation during admission. Continue home inhaler Insulin-dependent diabetes mellitus : continue lantus 20 bid ,fs with sliding scale Congestive heart failure with preserved EF: as above. Hypertension: hold amlodipine since on lasix drip ,continue metoprolol. Mood disorder: Continue home mood stabilizers Esophagitis/GERD: On fluconazole and PPI Iron deficiency anemia: Continue iron supplementation DVT prophylaxis: Lovenox Full code ongoing hospital stay need ahrf-sec to pneumonia /chf - for supplemental oxygen, IV antibiotics (as above), iv lasix , which is not possible in a lesser acute setting. Quality Stroke Does the patient have a stroke diagnosis?: No VTE Prior VTE?: No VTE Risk Level:: Medical - moderate - high VTE Device Contraindication: Treatment Not Indicated VTE Drug Contraindication: N/A - Med Ordered
--- NOTE | 2024-06-25 14:11 | P.PNNP_ITS ---
Subjective Subjective Date of Service: 06/25/24 Interval history: chf execerbation/pneumonia Physical Exam 2 Vital Signs: Vital Signs: Last Vital Signs Temp 96.9 F 06/25/24 11:10 Pulse 79 06/25/24 11:25 Resp 20 06/25/24 11:25 BP 111/57 L 06/25/24 11:10 Pulse Ox 97 06/25/24 11:10 O2 Del Method Nasal Cannula 06/25/24 11:10 O2 Flow Rate 2 06/25/24 11:10 FiO2 35 06/24/24 04:27 BMI result Body Mass Index 22.5 Const: General: ill appearing Neck: Neck: Yes supple Resp: Auscultation: clear to auscultation bilaterally Cardio: Palpation: no palpable S3 Heart sounds: no rubs GI: Palpation (GI): Soft to palpation Auscultation: normal bowel sounds Neuro: Motor exam (neuro): no asterixis Objective Data Labs 06/22/24 04:50 06/25/24 09:11 Labs: Laboratory Results - last 24 hr 06/24/24 06/24/24 06/25/24 16:45 19:37 07:02 Sodium Potassium Chloride Carbon Dioxide Anion Gap BUN Creatinine Estim Creat Clear Calc Estimated GFR POC Glucose 128 H 163 H 88 Random Glucose Calcium B-Natriuretic Peptide 06/25/24 06/25/24 09:11 10:40 Sodium 140 Potassium 3.7 Chloride 104 Carbon Dioxide 25 Anion Gap 15 BUN 22 H Creatinine 1.62 H Estim Creat Clear Calc 47.8 Estimated GFR 46 POC Glucose 218 H Random Glucose 198 H Calcium 9.1 B-Natriuretic Peptide 186 H Microbiology Microbiology Results: Microbiology 06/21/24 23:43 Blood - Venous Blood Culture - Preliminary No growth after 48 hours. 06/21/24 23:44 Blood - Venous Blood Culture - Preliminary No growth after 48 hours. Procedures Date of Service Date of Service: 06/25/24 Assessment & Plan Assessment and plan (1) Acute kidney injury superimposed on CKD: Status: Acute Plan KELVIN due to compromise in renal perfusion with resultant tubular injury Creatinine is trending down. Keep on Lasix drip 1 more day No reason to suspect GN/AIN; Continue diuresis Keep O > I Continue to avoid nephrotoxic agents and hypotension. Continue current supportive management for now; Time Spent With Patient Time: Total time managing care of this patient today ____ minutes. Progress Note: Quality Stroke Does the patient have a stroke diagnosis?: No
[2024-06-25] MEDS: cefTRIAXone sodium 1 GM in 0.9 % Sodium Chloride 50 ML IV (15:40)
[2024-06-25] MEDS: Azithromycin 500 MG in 0.9 % Sodium Chloride 250 ML 125 MG IV (15:40)
[2024-06-25 15:56] LABS: Glucose, Whole Blood 230 mg/dL (60-115)
[2024-06-25] MEDS: Furosemide 40 MG/4 ML VIAL IVPUSH (18:34)
[2024-06-25 19:57] LABS: Glucose, Whole Blood 138 mg/dL (60-115)
[2024-06-25] MEDS: traZODone HCL 100 MG TABLET PO (21:09)
[2024-06-26] VITALS (11 sets, daily range): BP systolic 125–141; BP diastolic 60–70; PULSE 71–89; RESP 19–22; TEMP 36.3–37.2; O2SAT 93–100
[2024-06-26] MEDS: Omeprazole 20 MG CAPSULE.DR PO ×2 (05:36→16:41)
[2024-06-26] MEDS: Fluticasone/Vilanterol 100/25 BLST.W.DEV 1 PUFF INHALE (07:30)
[2024-06-26] MEDS: Albuterol/Iprat 2.5/0.5MG 3 ML AMPUL.NEB INHALE ×2 (07:32→15:07)
[2024-06-26 08:02] LABS: Glucose, Whole Blood 182 mg/dL (60-115)
[2024-06-26] MEDS: Enoxaparin Sodium 40 MG/0.4 ML SYRINGE SUBCUT (08:40)
[2024-06-26] MEDS: Nicotine 14 MG PATCH.TD24 TRANSDERMA (08:40)
[2024-06-26] MEDS: Insulin Lispro 100 UNIT/ML 3 ML VIAL SUBCUT ×3 (08:41→20:28)
[2024-06-26] MEDS: Furosemide 40 MG/4 ML VIAL IVPUSH ×2 (08:42→20:00)
[2024-06-26] MEDS: hydrALAZINE HCl 50 MG TABLET 100 MG PO ×3 (08:42→20:13)
[2024-06-26] MEDS: Thiamine HCL 100 MG TABLET PO (08:42)
[2024-06-26] MEDS: Ascorbic Acid 250 MG TABLET PO (08:43)
[2024-06-26] MEDS: Metoprolol Succinate ER 100 MG TAB.ER.24H PO (08:43)
[2024-06-26] MEDS: Atorvastatin Calcium 40 MG TABLET PO (08:43)
[2024-06-26] MEDS: Sucralfate 1 GM TABLET PO ×4 (08:43→20:13)
[2024-06-26] MEDS: Isosorbide Mononitrate 30 MG TAB.ER.24H PO (08:43)
[2024-06-26] MEDS: Aspirin Enteric Coated 81 MG TABLET.DR PO (08:43)
[2024-06-26] MEDS: Folic Acid 1 MG TABLET PO (08:43)
[2024-06-26] MEDS: Magnesium Oxide 400 MG TABLET PO ×2 (08:43→16:41)
[2024-06-26] MEDS: Gabapentin 100 MG CAPSULE PO ×3 (08:43→20:13)
[2024-06-26] MEDS: Escitalopram Oxalate 10 MG TABLET PO (08:43)
[2024-06-26] MEDS: 0.9 % Sodium Chloride Flush 3 ML SYRINGE IVFLUSH ×2 (08:44→16:44)
[2024-06-26] MEDS: Insulin Glargine,Hum.rec.anlog 100 UNIT/ML 10 ML VIAL 20 UNIT SUBCUT ×2 (08:45→20:28)
[2024-06-26] MEDS: Ferrous Sulfate 324 MG TABLET.DR PO (09:22)
[2024-06-26 11:20] LABS: Glucose, Whole Blood 278 mg/dL (60-115)
--- NOTE | 2024-06-26 14:19 | P.PNIM_ITS ---
Subjective Subjective Date of Service: 06/26/24 Interval History: sob improved Physical Exam 2 Vital Signs: Vital Signs: Last Vital Signs Temp 98.6 F 06/26/24 10:52 Pulse 89 06/26/24 10:52 Resp 20 06/26/24 10:52 BP 128/68 06/26/24 10:52 Pulse Ox 95 06/26/24 10:52 O2 Del Method Nasal Cannula 06/26/24 10:52 O2 Flow Rate 2 06/26/24 10:52 FiO2 35 06/24/24 04:27 BMI result Body Mass Index 22.5 Const: General: ill appearing Neck: Neck: Yes supple Resp: Auscultation: clear to auscultation bilaterally Cardio: Palpation: no palpable S3 Heart sounds: no rubs GI: Palpation (GI): Soft to palpation Auscultation: normal bowel sounds Neuro: Motor exam (neuro): no asterixis Objective Data Active Medications Acetaminophen (Acetaminophen 325 Mg Tablet) 650 mg PO Q6H PRN PRN Reason: Pain, Mild (Pain Scale 1-3), fever or headache Albuterol Sulfate (Albuterol Sulfate 90 Mcg 8 Gm Inhaler) 2 puff INHALE Q4H PRN PRN Reason: bronchospasm Albuterol/Ipratropium (Albuterol/Iprat 2.5/0.5mg 3 Ml Ampul.Neb) 3 ml INHALE RQ4H WHILE AWAKE [facility] [place] Last Admin: 06/26/24 11:09 Dose: Not Given Documented By: AMADO Non-Admin Reason: Patient Asleep Amlodipine Besylate (Amlodipine Besylate 10 Mg Tablet) 10 mg PO DAILY [facility] [place]; Protocol Last Admin: 06/22/24 08:51 Dose: 10 mg Documented By: RENETTA Ascorbic Acid (Ascorbic Acid 250 Mg Tablet) 250 mg PO DAILY [facility] [place] Last Admin: 06/26/24 08:43 Dose: 250 mg Documented By: HEENA Aspirin (Aspirin Enteric Coated 81 Mg Tablet.) 81 mg PO DAILY [facility] [place] Last Admin: 06/26/24 08:43 Dose: 81 mg Documented By: HEENA Atorvastatin Calcium (Atorvastatin Calcium 40 Mg Tablet) 40 mg PO DAILY [facility] [place] Last Admin: 06/26/24 08:43 Dose: 40 mg Documented By: HEENA Calcium Carbonate (Calcium Carbonate 750 Mg Tab.Chew) 750 mg PO Q4H PRN PRN Reason: Heartburn Enoxaparin Sodium (Enoxaparin Sodium 40 Mg/0.4 Ml Syringe) 40 mg SUBCUT DAILY [facility] [place] Last Admin: 06/26/24 08:40 Dose: 40 mg Documented By: HEENA Escitalopram Oxalate (Escitalopram Oxalate 10 Mg Tablet) 10 mg PO DAILY [facility] [place] Last Admin: 06/26/24 08:43 Dose: 10 mg Documented By: HEENA Ferrous Sulfate (Ferrous Sulfate 324 Mg Tablet.Dr) 324 mg PO DAILY [facility] [place] Last Admin: 06/26/24 09:22 Dose: 324 mg Documented By: HEENA Fluticasone/Vilanterol (Fluticasone/Vilanterol 100/25 Blst.W.Dev) 1 puff INHALE RDAILY [facility] [place] Last Admin: 06/26/24 07:30 Dose: 1 puff Documented By: AMADO Folic Acid (Folic Acid 1 Mg Tablet) 1 mg PO DAILY [facility] [place] Last Admin: 06/26/24 08:43 Dose: 1 mg Documented By: HEENA Furosemide (Furosemide 40 Mg/4 Ml Vial) 40 mg IVPUSH Q12H [facility] [place]; Protocol Last Admin: 06/26/24 08:42 Dose: 40 mg Documented By: HEENA Gabapentin (Gabapentin 100 Mg Capsule) 100 mg PO TID [facility] [place] Last Admin: 06/26/24 08:43 Dose: 100 mg Documented By: HEENA Glucose (Glucose Gel 15 Gm Gel..Gram.) 15 gm PO Q15M PRN; Protocol PRN Reason: per Hypoglycemia Standing Ord. Hydralazine HCl (Hydralazine Hcl 50 Mg Tablet) 100 mg PO TID [facility] [place]; Protocol Last Admin: 06/26/24 08:42 Dose: 100 mg Documented By: HEENA Dextrose (D10) 250 mls @ 750 mls/hr IV Q15M PRN; Protocol PRN Reason: per Hypoglycemia Standing Ord. Ceftriaxone Sodium 1 gm/ (Sodium Chloride) 50 mls @ 100 mls/hr IV Q24H [facility] [place] Last Infusion: 06/25/24 16:13 Dose: Infused Documented By: AMRIT Azithromycin 500 mg/ Sodium (Chloride) 250 mls @ 125 mls/hr IV Q24H [facility] [place] Last Infusion: 06/25/24 17:43 Dose: Infused Documented By: AMRIT Insulin Glargine (Insulin Glargine,Hum.Rec.Anlog 100 Unit/Ml 10 Ml Vial) 20 unit SUBCUT BID [facility] [place] Last Admin: 06/26/24 08:45 Dose: 20 unit Documented By: HEENA Insulin Human Lispro (Insulin Lispro 100 Unit/Ml 3 Ml Vial) 0 unit SUBCUT QIDACHS [facility] [place]; Protocol Last Admin: 06/26/24 11:58 Dose: 6 unit Documented By: HEENA Isosorbide Mononitrate (Isosorbide Mononitrate 30 Mg Tab.Er.24h) 30 mg PO DAILY [facility] [place]; Protocol Last Admin: 06/26/24 08:43 Dose: 30 mg Documented By: HEENA Magnesium Hydroxide (Milk Of Magnesia 30 Ml Oral.Susp) 30 ml PO DAILY PRN PRN Reason: Constipation Magnesium Oxide (Magnesium Oxide 400 Mg Tablet) 400 mg PO BIDPC [facility] [place] Last Admin: 06/26/24 08:43 Dose: 400 mg Documented By: HEENA Melatonin (Melatonin 3 Mg Tablet) 6 mg PO BEDTIME PRN PRN Reason: Insomnia Last Admin: 06/23/24 21:53 Dose: 6 mg Documented By: STEPHIE Comments: pt requested to help with Insomnia Metoprolol Succinate (Metoprolol Succinate Er 100 Mg Tab.Er.24h) 100 mg PO DAILY [facility] [place]; Protocol Last Admin: 06/26/24 08:43 Dose: 100 mg Documented By: HEENA Nicotine (Nicotine 14 Mg Patch.Td24) 14 mg TRANSDERMA DAILY [facility] [place] Last Admin: 06/26/24 08:40 Dose: 14 mg Documented By: HEENA Omeprazole (Omeprazole 20 Mg Capsule.Dr) 20 mg PO BID@0630,1630 [facility] [place] Last Admin: 06/26/24 05:36 Dose: 20 mg Documented By: PRINCESS Ondansetron HCl (Ondansetron Hcl 4 Mg/2 Ml Vial) 4 mg IVPUSH Q8H PRN PRN Reason: Nausea and Vomiting Sodium Chloride (0.9 % Sodium Chloride Flush 3 Ml Syringe) 3 ml IVFLUSH QSHIFT [facility] [place] Last Admin: 06/26/24 08:44 Dose: 3 ml Documented By: HEENA Sucralfate (Sucralfate 1 Gm Tablet) 1 gm PO QIDACHS [facility] [place] Last Admin: 06/26/24 11:58 Dose: 1 gm Documented By: HEENA Thiamine HCl (Thiamine Hcl 100 Mg Tablet) 100 mg PO DAILY [facility] [place] Last Admin: 06/26/24 08:42 Dose: 100 mg Documented By: HEENA Trazodone HCl (Trazodone Hcl 100 Mg Tablet) 100 mg PO BEDTIME [facility] [place] Last Admin: 06/25/24 21:09 Dose: 100 mg Documented By: PRINCESS Labs 06/22/24 04:50 06/25/24 09:11 Labs: Laboratory Results - last 24 hr 06/25/24 06/25/24 06/26/24 15:45 19:52 07:33 POC Glucose 230 H 138 H 182 H 06/26/24 11:13 POC Glucose 278 H Assessment and Plan (1) Hypoxia: Status: Acute (2) Pneumonia: Status: Acute (3) Congestive heart failure: Status: Acute Assessment and Plan: 48M PMH hfpef, COPD with nocturnal o2, dm, htn, etoh dependence, gerd, ckd III, presented with sob Acute hypoxic respiratory failure and sepsis secondary to acute on chronic diastolic CHF and pneumonia Diuresed well was transitioned from Lasix drip to intermittent IV Lasix, will continue IV Lasix for now and continue to wean oxygen Continue ceftriaxone azithromycin initiated 06/22/2024 Acute kidney injury on CKD 3 Continues to improve with diuresis COPD with nocturnal hypoxia Continue Breo, albuterol as needed, stable Diabetes Basal bolus insulin Hypertension Continue amlodipine, hydralazine, Imdur, Toprol GERD/fungal esophagitis Continue fluconazole and PPI DVT prophylaxis with Lovenox Full Code reason for continued hospitalization: Ongoing IV diuresis and weaning of oxygen Quality Stroke Does the patient have a stroke diagnosis?: No VTE Prior VTE?: No VTE Risk Level:: Medical - moderate - high VTE Device Contraindication: Treatment Not Indicated VTE Drug Contraindication: N/A - Med Ordered
[2024-06-26 15:17] LABS: Glucose, Whole Blood 150 mg/dL (60-115)
--- NOTE | 2024-06-26 15:38 | MHC.CM.PN ---
Per rounds, pt is not yet ready for DC, he is requiring continued diureses, and weaning O2.
[2024-06-26] MEDS: cefTRIAXone sodium 1 GM in 0.9 % Sodium Chloride 50 ML IV (15:47)
[2024-06-26] MEDS: Azithromycin 500 MG in 0.9 % Sodium Chloride 250 ML 125 MG IV (16:40)
[2024-06-26 20:08] LABS: Glucose, Whole Blood 214 mg/dL (60-115)
[2024-06-26] MEDS: traZODone HCL 100 MG TABLET PO (20:13)
[2024-06-27] VITALS (11 sets, daily range): BP systolic 119–141; BP diastolic 59–71; PULSE 61–92; RESP 15–20; TEMP 36.1–37.1; O2SAT 91–100
[2024-06-27] MEDS: 0.9 % Sodium Chloride Flush 3 ML SYRINGE IVFLUSH ×2 (00:30→23:32)
[2024-06-27] MEDS: Furosemide 40 MG/4 ML VIAL IVPUSH (06:31)
[2024-06-27] MEDS: Omeprazole 20 MG CAPSULE.DR PO ×2 (06:31→15:22)
[2024-06-27 07:05] LABS: Hematocrit 30.3 % (42.0-52.0); Hemoglobin 9.4 g/dl (14.0-18.0); Mean Corpuscular Hemoglobin 23.9 pg (27.0-33.0); Mean Corpuscular Volume 77.1 fL (80.0-98.0); Platelet Count 469 X10*3/uL (160-400); Red Blood Count 3.93 X10*6/uL (4.60-5.80); Red Cell Distribution Width 18.4 % (11.0-16.0); White Blood Count 13.6 X10*3/uL (4.8-10.8)
[2024-06-27 07:20] LABS: Anion Gap 16 (12-20); Blood Urea Nitrogen 26 mg/dL (9-16); Calcium 9.5 mg/dL (8.4-10.2); Carbon Dioxide 24 mmol/L (22-29); Chloride 108 mmol/L (96-108); Creatinine Clr Calc Pharmacy 54.1; Estimated Glomerular Filt Rate 53; Glucose Fasting 99 mg/dL (60-99); Magnesium 2.3 mg/dL (1.6-2.6); Sodium 144 mmol/L (135-145)
[2024-06-27] MEDS: Fluticasone/Vilanterol 100/25 BLST.W.DEV 1 PUFF INHALE (07:25)
[2024-06-27] MEDS: Albuterol/Iprat 2.5/0.5MG 3 ML AMPUL.NEB INHALE ×3 (07:25→15:07)
[2024-06-27 07:31] LABS: Glucose, Whole Blood 96 mg/dL (60-115)
[2024-06-27] MEDS: Isosorbide Mononitrate 30 MG TAB.ER.24H PO (08:24)
[2024-06-27] MEDS: Ascorbic Acid 250 MG TABLET PO (08:24)
[2024-06-27] MEDS: Thiamine HCL 100 MG TABLET PO (08:24)
[2024-06-27] MEDS: hydrALAZINE HCl 50 MG TABLET 100 MG PO ×3 (08:25→21:21)
[2024-06-27] MEDS: Nicotine 14 MG PATCH.TD24 TRANSDERMA (08:25)
[2024-06-27] MEDS: Ferrous Sulfate 324 MG TABLET.DR PO (08:25)
[2024-06-27] MEDS: Folic Acid 1 MG TABLET PO (08:25)
[2024-06-27] MEDS: Aspirin Enteric Coated 81 MG TABLET.DR PO (08:25)
[2024-06-27] MEDS: Magnesium Oxide 400 MG TABLET PO ×2 (08:25→17:25)
[2024-06-27] MEDS: Metoprolol Succinate ER 100 MG TAB.ER.24H PO (08:25)
[2024-06-27] MEDS: Escitalopram Oxalate 10 MG TABLET PO (08:25)
[2024-06-27] MEDS: Enoxaparin Sodium 40 MG/0.4 ML SYRINGE SUBCUT (08:25)
[2024-06-27] MEDS: Gabapentin 100 MG CAPSULE PO ×3 (08:25→21:20)
[2024-06-27] MEDS: Atorvastatin Calcium 40 MG TABLET PO (08:25)
[2024-06-27] MEDS: Sucralfate 1 GM TABLET PO ×4 (08:25→21:21)
[2024-06-27] MEDS: Insulin Glargine,Hum.rec.anlog 100 UNIT/ML 10 ML VIAL 20 UNIT SUBCUT ×2 (08:26→21:22)
--- NOTE | 2024-06-27 10:33 | P.PNIM_ITS ---
Subjective Subjective Date of Service: 06/27/24 Interval History: Much improved Physical Exam 2 Vital Signs: Vital Signs: Last Vital Signs Temp 97.6 F 06/27/24 07:25 Pulse 72 06/27/24 07:28 Resp 16 06/27/24 07:28 BP 141/71 H 06/27/24 07:25 Pulse Ox 92 06/27/24 07:25 O2 Del Method Nasal Cannula 06/27/24 07:25 O2 Flow Rate 2 06/27/24 07:25 FiO2 35 06/24/24 04:27 BMI result Body Mass Index 22.5 Const: General: ill appearing Neck: Neck: Yes supple Resp: Auscultation: clear to auscultation bilaterally Cardio: Palpation: no palpable S3 Heart sounds: no rubs GI: Palpation (GI): Soft to palpation Auscultation: normal bowel sounds Neuro: Motor exam (neuro): no asterixis Objective Data Active Medications Acetaminophen (Acetaminophen 325 Mg Tablet) 650 mg PO Q6H PRN PRN Reason: Pain, Mild (Pain Scale 1-3), fever or headache Albuterol Sulfate (Albuterol Sulfate 90 Mcg 8 Gm Inhaler) 2 puff INHALE Q4H PRN PRN Reason: bronchospasm Albuterol/Ipratropium (Albuterol/Iprat 2.5/0.5mg 3 Ml Ampul.Neb) 3 ml INHALE RQ4H WHILE AWAKE [facility] Last Admin: 06/27/24 07:25 Dose: 3 ml Documented By: WILBERT Amlodipine Besylate (Amlodipine Besylate 10 Mg Tablet) 10 mg PO DAILY [facility]; Protocol Last Admin: 06/22/24 08:51 Dose: 10 mg Documented By: RENETTA Ascorbic Acid (Ascorbic Acid 250 Mg Tablet) 250 mg PO DAILY [facility] Last Admin: 06/27/24 08:24 Dose: 250 mg Documented By: JUAN PABLO Aspirin (Aspirin Enteric Coated 81 Mg Tablet.) 81 mg PO DAILY [facility] Last Admin: 06/27/24 08:25 Dose: 81 mg Documented By: JUAN PABLO Atorvastatin Calcium (Atorvastatin Calcium 40 Mg Tablet) 40 mg PO DAILY [facility] Last Admin: 06/27/24 08:25 Dose: 40 mg Documented By: JUAN PABLO Calcium Carbonate (Calcium Carbonate 750 Mg Tab.Chew) 750 mg PO Q4H PRN PRN Reason: Heartburn Enoxaparin Sodium (Enoxaparin Sodium 40 Mg/0.4 Ml Syringe) 40 mg SUBCUT DAILY [facility] Last Admin: 06/27/24 08:25 Dose: 40 mg Documented By: JUAN PABLO Escitalopram Oxalate (Escitalopram Oxalate 10 Mg Tablet) 10 mg PO DAILY [facility] Last Admin: 06/27/24 08:25 Dose: 10 mg Documented By: JUAN PABLO Ferrous Sulfate (Ferrous Sulfate 324 Mg Tablet.Dr) 324 mg PO DAILY [facility] Last Admin: 06/27/24 08:25 Dose: 324 mg Documented By: JUAN PABLO Fluticasone/Vilanterol (Fluticasone/Vilanterol 100/25 Blst.W.Dev) 1 puff INHALE RDAILY [facility] Last Admin: 06/27/24 07:25 Dose: 1 puff Documented By: WILBERT Folic Acid (Folic Acid 1 Mg Tablet) 1 mg PO DAILY [facility] Last Admin: 06/27/24 08:25 Dose: 1 mg Documented By: JUAN PABLO Furosemide (Furosemide 40 Mg Tablet) 40 mg PO BEDTIME [facility]; Protocol Furosemide (Furosemide 40 Mg Tablet) 80 mg PO DAILY [facility]; Protocol Gabapentin (Gabapentin 100 Mg Capsule) 100 mg PO TID [facility] Last Admin: 06/27/24 08:25 Dose: 100 mg Documented By: JUAN PABLO Glucose (Glucose Gel 15 Gm Gel..Gram.) 15 gm PO Q15M PRN; Protocol PRN Reason: per Hypoglycemia Standing Ord. Hydralazine HCl (Hydralazine Hcl 50 Mg Tablet) 100 mg PO TID [facility]; Protocol Last Admin: 06/27/24 08:25 Dose: 100 mg Documented By: JUAN PABLO Dextrose (D10) 250 mls @ 750 mls/hr IV Q15M PRN; Protocol PRN Reason: per Hypoglycemia Standing Ord. Ceftriaxone Sodium 1 gm/ (Sodium Chloride) 50 mls @ 100 mls/hr IV Q24H [facility] Last Infusion: 06/26/24 16:51 Dose: Infused Documented By: HEENA Azithromycin 500 mg/ Sodium (Chloride) 250 mls @ 125 mls/hr IV Q24H [facility] Last Infusion: 06/26/24 18:40 Dose: Infused Documented By: JEAN Insulin Glargine (Insulin Glargine,Hum.Rec.Anlog 100 Unit/Ml 10 Ml Vial) 20 unit SUBCUT BID [facility] Last Admin: 06/27/24 08:26 Dose: 20 unit Documented By: JUAN PABLO Insulin Human Lispro (Insulin Lispro 100 Unit/Ml 3 Ml Vial) 0 unit SUBCUT QIDACHS [facility]; Protocol Last Admin: 06/27/24 07:31 Dose: Not Given Documented By: JUAN PABLO Non-Admin Reason: poc oor Isosorbide Mononitrate (Isosorbide Mononitrate 30 Mg Tab.Er.24h) 30 mg PO DAILY [facility]; Protocol Last Admin: 06/27/24 08:24 Dose: 30 mg Documented By: JUAN PABLO Magnesium Hydroxide (Milk Of Magnesia 30 Ml Oral.Susp) 30 ml PO DAILY PRN PRN Reason: Constipation Magnesium Oxide (Magnesium Oxide 400 Mg Tablet) 400 mg PO BIDPC [facility] Last Admin: 06/27/24 08:25 Dose: 400 mg Documented By: JUAN PABLO Melatonin (Melatonin 3 Mg Tablet) 6 mg PO BEDTIME PRN PRN Reason: Insomnia Last Admin: 06/23/24 21:53 Dose: 6 mg Documented By: STEPHIE Comments: pt requested to help with Insomnia Metoprolol Succinate (Metoprolol Succinate Er 100 Mg Tab.Er.24h) 100 mg PO DAILY [facility]; Protocol Last Admin: 06/27/24 08:25 Dose: 100 mg Documented By: JUAN PABLO Nicotine (Nicotine 14 Mg Patch.Td24) 14 mg TRANSDERMA DAILY [facility] Last Admin: 06/27/24 08:25 Dose: 14 mg Documented By: JUAN PABLO Omeprazole (Omeprazole 20 Mg Capsule.Dr) 20 mg PO BID@0630,1630 [facility] Last Admin: 06/27/24 06:31 Dose: 20 mg Documented By: JEAN Ondansetron HCl (Ondansetron Hcl 4 Mg/2 Ml Vial) 4 mg IVPUSH Q8H PRN PRN Reason: Nausea and Vomiting Sodium Chloride (0.9 % Sodium Chloride Flush 3 Ml Syringe) 3 ml IVFLUSH QSHIFT [facility] Last Admin: 06/27/24 07:31 Dose: Not Given Documented By: JUAN PABLO Non-Admin Reason: Previously Administered Sucralfate (Sucralfate 1 Gm Tablet) 1 gm PO QIDACHS [facility] Last Admin: 06/27/24 08:25 Dose: 1 gm Documented By: BARIFAMode Thiamine HCl (Thiamine Hcl 100 Mg Tablet) 100 mg PO DAILY [facility] Last Admin: 06/27/24 08:24 Dose: 100 mg Documented By: JUAN PABLO Trazodone HCl (Trazodone Hcl 100 Mg Tablet) 100 mg PO BEDTIME [facility] Last Admin: 06/26/24 20:13 Dose: 100 mg Documented By: JEAN Labs 06/27/24 06:54 06/27/24 06:54 Labs: Laboratory Results - last 24 hr 06/26/24 06/26/24 06/26/24 11:13 15:12 19:55 MCV MCH MCHC RDW Plt Count MPV Absolute Nucleated RBC Nucleated RBC % (auto) Anion Gap Estim Creat Clear Calc Estimated GFR POC Glucose 278 H 150 H 214 H Fasting Glucose Calcium Magnesium 06/27/24 06/27/24 06:54 07:27 MCV 77.1 L MCH 23.9 L MCHC 31.0 RDW 18.4 H Plt Count 469 H MPV 10.0 Absolute Nucleated RBC 0.000 Nucleated RBC % (auto) 0.0 Anion Gap 16 Estim Creat Clear Calc 54.1 Estimated GFR 53 POC Glucose 96 Fasting Glucose 99 Calcium 9.5 Magnesium 2.3 Microbiology Microbiology Results: Microbiology 06/21/24 23:43 Blood Culture - Final Blood - Venous No growth after 5 days. 06/21/24 23:44 Blood Culture - Final Blood - Venous No growth after 5 days. Assessment and Plan (1) Hypoxia: Status: Acute (2) Pneumonia: Status: Acute (3) Congestive heart failure: Status: Acute Assessment and Plan: 48M PMH hfpef, COPD with nocturnal o2, dm, htn, etoh dependence, gerd, ckd III, presented with sob Acute hypoxic respiratory failure and sepsis secondary to acute on chronic diastolic CHF and pneumonia Diuresed well was transitioned from Lasix drip to intermittent IV Lasix, now on room air and back on maintenance oral Lasix 80 mg in the morning 40 mg at bedtime Check repeat CT chest Continue ceftriaxone azithromycin initiated 06/22/2024 Acute kidney injury on CKD 3 Continues to improve with diuresis COPD with nocturnal hypoxia Continue Breo, albuterol as needed, stable Diabetes Basal bolus insulin Hypertension Continue amlodipine, hydralazine, Imdur, Toprol GERD/fungal esophagitis Continue fluconazole and PPI DVT prophylaxis with Lovenox Full Code reason for continued hospitalization: Close monitoring now that he is on room air as patient has had multiple readmissions recently Quality Stroke Does the patient have a stroke diagnosis?: No VTE Prior VTE?: No VTE Risk Level:: Medical - moderate - high VTE Device Contraindication: Treatment Not Indicated VTE Drug Contraindication: N/A - Med Ordered
--- NOTE | 2024-06-27 10:56 | P.PNNP_ITS ---
Subjective Subjective Date of Service: 06/27/24 Interval history: Feels better Physical Exam 2 Vital Signs: Vital Signs: Last Vital Signs Temp 97.6 F 06/27/24 07:25 Pulse 72 06/27/24 07:28 Resp 16 06/27/24 07:28 BP 141/71 H 06/27/24 07:25 Pulse Ox 92 06/27/24 07:25 O2 Del Method Nasal Cannula 06/27/24 07:25 O2 Flow Rate 2 06/27/24 07:25 FiO2 35 06/24/24 04:27 BMI result Body Mass Index 22.5 Awake. Comfortable. Neck is supple. Mucosa moist. Lungs bilateral scattered rhonchi. Heart S1-S2 heard no gallop. Abdomen soft. Extremities no edema. No involuntary movements. No myoclonus. Objective Data Labs 06/27/24 06:54 06/27/24 06:54 Labs: Laboratory Results - last 24 hr 06/26/24 06/26/24 06/26/24 11:13 15:12 19:55 WBC RBC Hgb Hct MCV MCH MCHC RDW Plt Count MPV Absolute Nucleated RBC Nucleated RBC % (auto) Sodium Potassium Chloride Carbon Dioxide Anion Gap BUN Creatinine Estim Creat Clear Calc Estimated GFR POC Glucose 278 H 150 H 214 H Fasting Glucose Calcium Magnesium 06/27/24 06/27/24 06:54 07:27 WBC 13.6 H RBC 3.93 L Hgb 9.4 L Hct 30.3 L MCV 77.1 L MCH 23.9 L MCHC 31.0 RDW 18.4 H Plt Count 469 H MPV 10.0 Absolute Nucleated RBC 0.000 Nucleated RBC % (auto) 0.0 Sodium 144 Potassium 4.0 Chloride 108 Carbon Dioxide 24 Anion Gap 16 BUN 26 H Creatinine 1.43 H Estim Creat Clear Calc 54.1 Estimated GFR 53 POC Glucose 96 Fasting Glucose 99 Calcium 9.5 Magnesium 2.3 Microbiology Microbiology Results: Microbiology 06/21/24 23:43 Blood - Venous Blood Culture - Final No growth after 5 days. 06/21/24 23:44 Blood - Venous Blood Culture - Final No growth after 5 days. Procedures Date of Service Date of Service: 06/27/24 Assessment & Plan Assessment and plan (1) Acute kidney injury superimposed on CKD: Status: Acute Plan KELVIN due to compromise in renal perfusion with resultant tubular injury Creatinine is trending down. Keep output more than the intake Continue diuresis Keep O > I Continue to avoid nephrotoxic agents and hypotension. Continue current supportive management for now; Mild anemia. Multifactorial. 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 No absolute indication for Epogen yet She will arrange for outpatient follow up in the next few weeks Time Spent With Patient Time: Total time managing care of this patient today ____ minutes. Progress Note: Quality Stroke Does the patient have a stroke diagnosis?: No
[2024-06-27 11:27] LABS: Glucose, Whole Blood 215 mg/dL (60-115)
[2024-06-27] MEDS: Insulin Lispro 100 UNIT/ML 3 ML VIAL SUBCUT ×2 (11:33→21:22)
[2024-06-27] MEDS: cefTRIAXone sodium 1 GM in 0.9 % Sodium Chloride 50 ML IV (15:22)
[2024-06-27] MEDS: Azithromycin 500 MG in 0.9 % Sodium Chloride 250 ML 125 MG IV (15:22)
[2024-06-27 16:13] LABS: Glucose, Whole Blood 76 mg/dL (60-115)
[2024-06-27 20:21] LABS: Glucose, Whole Blood 187 mg/dL (60-115)
[2024-06-27] MEDS: traZODone HCL 100 MG TABLET PO (21:20)
[2024-06-27] MEDS: Furosemide 40 MG TABLET PO (21:21)
[2024-06-27] MEDS: Glucose Gel 15 GM GEL..GRAM. PO ×2 (23:29→23:46)
[2024-06-27 23:36] LABS: Glucose, Whole Blood 29 mg/dL (60-115)
[2024-06-27 23:43] LABS: Glucose, Whole Blood 31 mg/dL (60-115)
--- NOTE | 2024-06-27 23:55 | PM.EVENT ---
Event Note Date of Service: 06/27/24 Event Note: RN reported hypoglycemia. Reducing basal insulin Time Spent With Patient Time: Total time managing care of this patient today ____ minutes.
[2024-06-28 00:27] LABS: Glucose, Whole Blood 149 mg/dL (60-115)
[2024-06-28 00:34] VITALS: BP 138/66; PULSE 88
[2024-06-28 00:39] LABS: Glucose, Whole Blood 237 mg/dL (60-115)
[2024-06-28 01:53] LABS: Glucose, Whole Blood 411 mg/dL (60-115)
--- NOTE | 2024-06-28 03:57 | PC.NURSE ---
Event note: Hypo and hyperglycemia. Around 23:16 Patient woke up and c/o sweating and dizziness Patient asked for his blood sugar to be checked. His POCT glucose was found to be 29. Patient received 15 grams of oral glucose gel (Glutose 15) and 120 ml orange juice and 2 jose crackers around 23:29. POCT glucose repeated at 23:[address] Art John was notified. Patient received a second dose of Oral Glucose Gel (Glutose 15), 120 ml orange juice, 120 ml of whole milk, 2 slices of of bread with peanut butter. At 2355 POCT Glucose was 179. In the next hour patient asked for more food and his POCT glucose went up to 237 at 00:36 and to 411 at 01:50. Dr Eder John was made aware. No new order was given. Patient went back to sleep with no other reported issues. We'll continue to monitor for signs and symptoms of hypoglycemia/ hyperglycemia.
[2024-06-28 04:00] VITALS: BP 121/60; PULSE 79; RESP 18; TEMP 36.3; O2SAT 97
[2024-06-28 06:00] VITALS: BMI 23.4
[2024-06-28] MEDS: Omeprazole 20 MG CAPSULE.DR PO (06:05)
[2024-06-28 06:59] LABS: Anion Gap 15 (12-20); Blood Urea Nitrogen 31 mg/dL (9-16); Calcium 9.1 mg/dL (8.4-10.2); Carbon Dioxide 20 mmol/L (22-29); Chloride 107 mmol/L (96-108); Creatinine Clr Calc Pharmacy 45.1; Estimated Glomerular Filt Rate 42; Potassium 4.5 mmol/L (3.3-5.1); Sodium 137 mmol/L (135-145)
[2024-06-28 07:11] VITALS: BP 129/59; PULSE 77; RESP 20; TEMP 36.4; O2SAT 96
[2024-06-28 07:25] LABS: Glucose, Whole Blood 305 mg/dL (60-115)
[2024-06-28 07:28] LABS: Glucose Fasting 359 mg/dL (60-99)
[2024-06-28] MEDS: Insulin Lispro 100 UNIT/ML 3 ML VIAL SUBCUT (08:04)
[2024-06-28] MEDS: Magnesium Oxide 400 MG TABLET PO (08:05)
[2024-06-28] MEDS: Nicotine 14 MG PATCH.TD24 TRANSDERMA (08:05)
[2024-06-28] MEDS: Enoxaparin Sodium 40 MG/0.4 ML SYRINGE SUBCUT (08:05)
[2024-06-28] MEDS: Isosorbide Mononitrate 30 MG TAB.ER.24H PO (08:05)
[2024-06-28] MEDS: Insulin Glargine,Hum.rec.anlog 100 UNIT/ML 10 ML VIAL 10 UNIT SUBCUT (08:05)
[2024-06-28] MEDS: Furosemide 40 MG TABLET 80 MG PO (08:05)
[2024-06-28] MEDS: Aspirin Enteric Coated 81 MG TABLET.DR PO (08:05)
[2024-06-28] MEDS: Ascorbic Acid 250 MG TABLET PO (08:06)
[2024-06-28] MEDS: Thiamine HCL 100 MG TABLET PO (08:06)
[2024-06-28] MEDS: Gabapentin 100 MG CAPSULE PO (08:06)
[2024-06-28] MEDS: Atorvastatin Calcium 40 MG TABLET PO (08:06)
[2024-06-28] MEDS: Sucralfate 1 GM TABLET PO (08:06)
[2024-06-28] MEDS: Ferrous Sulfate 324 MG TABLET.DR PO (08:06)
[2024-06-28] MEDS: hydrALAZINE HCl 50 MG TABLET 100 MG PO (08:06)
[2024-06-28] MEDS: Metoprolol Succinate ER 100 MG TAB.ER.24H PO (08:06)
[2024-06-28] MEDS: Folic Acid 1 MG TABLET PO (08:06)
[2024-06-28] MEDS: Escitalopram Oxalate 10 MG TABLET PO (08:06)
--- NOTE | 2024-06-28 08:57 | P.DS_ITS ---
DS: Providers Provider Date of Service: 06/28/24 Date of admission: 06/21/24 23:43 Date of discharge: 06/28/24 Primary care physician: Zari Henry MD Consults: 06/21/24 23:52 Consult to Pulmonology Routine Consulting Provider: [facility] [place] [facility] Reason for consultation: hypoxia, b/l pna 06/24/24 08:12 Consult to Nephrology Routine Consulting Provider: [facility] [place] [facility] Reason for consultation: ckd/chf Has provider been notified: No DS: Diagnosis Discharge Diagnosis (1) Acute kidney injury superimposed on CKD: Status: Acute DS: Summary Hospital Course Hospital Course: from initial hpi: 48-year-old male with pertinent history of insulin-dependent diabetes mellitus, hypertension, mood disorder, COPD with chronic hypoxia on prn home night time O2, alcohol use disorder, congestive heart failure with preserved EF, esophagitis with gastroesophageal reflux disease, alcohol use disorder, CKD stage 3 who presents to the emergency department for evaluation of dyspnea. Of note, patient was recently admitted on 06/11 with decompensated congestive heart failure and discharged on 06/19. Patient states he continued to be dyspneic at home. He tried to go to his bathroom and came back extremely short of breath with SpO2 in the 70s. Also reports productive cough. No wheezing. No orthopnea or dyspnea. States he does not use oxygen in the daytime and only uses it as needed at night. No chest pain, palpitations, abdominal pain, changes in urinary or bowel habits. In the emergency department, patient was found to be hypoxic and imaging with bilateral pneumonia. Patient was given empiric IV antibiotics and placed on supplemental oxygen hospital course: Patient was admitted for acute hypoxic respiratory failure and sepsis secondary to acute on chronic diastolic CHF and pneumonia. He was treated with IV Lasix and high-flow oxygen, he was transitioned to Lasix drip and diuresed well he was able to be weaned off oxygen eventually and still uses chronically nocturnally. He is feeling much better and CT scan shows almost complete resolution. He was also treated with 7 days of IV ceftriaxone and azithromycin. Patient noted to have acute kidney injury on CKD 3 which improved with diuresis. Creatinine is 1.7 at discharge. For COPD with nocturnal hypoxia he remained stable and was continued on Breo and albuterol. For type 1 diabetes complicated by both hyperglycemia and hypoglycemia he was treated with basal bolus insulin and glucose for the hypoglycemic episode. Sugars are now better controlled. For hypertension was continued on amlodipine, hydralazine, Imdur, Toprol. For GERD/fungal esophagitis was continued on fluconazole and PPI. Patient is feeling better will be discharged home. He will continue on his Lasix 80 mg nithin ly and 40 mg at nighttime. He is instructed to maintain a low-salt diet and fluid restrict, he should pay close attention to his symptoms and weight gain and follow closely was providers in order to implement interventions early to avoid repeat hospitalizations. Time Attestation Discharge Coordination Time (in mins): 32 Quality: Safe Use of Opioids Does Pt have an Active Cancer Diagnosis on the Problem List?: No Quality: Stroke Does the patient have a stroke diagnosis?: No Physical Exam Vital Signs: Vital Signs: Last Vital Signs Temp 97.5 F 06/28/24 07:11 Pulse 77 06/28/24 07:11 Resp 20 06/28/24 07:11 BP 129/59 L 06/28/24 07:11 Pulse Ox 96 06/28/24 07:11 O2 Del Method Nasal Cannula 06/28/24 07:11 O2 Flow Rate 3 06/28/24 07:11 FiO2 35 06/24/24 04:27 BMI result Body Mass Index 23.4 General: AO X 3, no acute distress Resp: CTA bilateral, no accessory muscles used CVS: S1,S2,RRR GI: soft, non tender, non distended Neuro: motor grossly intact, alert Psych: appropriate affect, appropriate insight DS: Data Data Completed and Pending Completed studies during hospitalization [Text1]: Procedures Assistance with Respiratory Ventilation, Less than 24 Consecutive Hours, Continuous Positive Airway Pressure (06/11/24) Detoxification Services for Substance Abuse Treatment (04/26/24) Excision of Esophagus, Via Natural or Artificial Opening Endoscopic, Diagnostic (04/26/24) Excision of Stomach, Pylorus, Via Natural or Artificial Opening Endoscopic, Diagnostic (04/26/24) Introduction of Remdesivir Anti-infective into Peripheral Vein, Percutaneous Approach, [employer] (12/22/23) Labs on day of discharge: Laboratory Results - last 24 hr 06/27/24 06/27/24 06/27/24 11:23 15:59 20:16 Hold Purple Top Sodium Potassium Chloride Carbon Dioxide Anion Gap BUN Creatinine Estim Creat Clear Calc Estimated GFR POC Glucose 215 H 76 187 H Fasting Glucose Calcium 06/27/24 06/27/24 06/28/24 23:15 23:39 00:17 Hold Purple Top Sodium Potassium Chloride Carbon Dioxide Anion Gap BUN Creatinine Estim Creat Clear Calc Estimated GFR POC Glucose 29 L* 31 L* 149 H Fasting Glucose Calcium 06/28/24 06/28/24 06/28/24 00:35 01:48 06:35 Hold Purple Top SEE NOTE Sodium 137 Potassium 4.5 Chloride 107 Carbon Dioxide 20 L Anion Gap 15 BUN 31 H Creatinine 1.72 H Estim Creat Clear Calc 45.1 Estimated GFR 42 POC Glucose 237 H 411 H* Fasting Glucose 359 H* Calcium 9.1 06/28/24 07:10 Hold Purple Top Sodium Potassium Chloride Carbon Dioxide Anion Gap BUN Creatinine Estim Creat Clear Calc Estimated GFR POC Glucose 305 H Fasting Glucose Calcium Discharge Plan Discharge Anticipated Discharge Date/Time: 06/28/24 08:47 Patient Disposition: Home, Self-Care Discharge Diagnosis: chf, pna, delma Referrals: Zari Henry MD [Primary Care Provider] - 1 Week Discharge Medications: Continued hydralazine 100 mg tablet 100 mg PO TID 30 Days Qty: 90 5RF sucralfate 1 gram Tablet 1 g PO QIDACHS Qty: 120 0RF trazodone 50 mg tablet 100 mg PO BEDTIME escitalopram oxalate 10 mg tablet 10 mg PO DAILY atorvastatin 40 mg tablet 40 mg PO DAILY gabapentin 300 mg capsule 300 mg PO TID metoprolol succinate 100 mg tablet extended release 24 hr 100 mg PO DAILY magnesium oxide 400 mg (241.3 mg magnesium) Tablet 400 mg PO BIDPC Qty: 60 0RF fluticasone propion-salmeterol [Advair Diskus] 250-50 mcg/dose blister with device 1 ea inhalation BID amlodipine 5 mg tablet 10 mg PO DAILY diclofenac sodium 1 % gel 1 g TOPICAL QID PRN (Reason: Pain) Rx Instructions: left chest wall pantoprazole 40 mg tablet,delayed release (DR/EC) 40 mg PO BID 60 Days Qty: 120 0RF nicotine [Nicoderm CQ] 14 mg/24 hr patch 24 hour 1 patch transdermal Q24H Qty: 28 0RF furosemide 40 mg tablet 80 mg PO DAILY Rx Instructions: IN THE MORNING furosemide 40 mg tablet 40 mg PO BEDTIME albuterol sulfate 90 mcg/actuation HFA aerosol inhaler 2 puff inhalation Q4H PRN (Reason: bronchospasm) insulin lispro 100 unit/mL solution 1 sliding scale dose subcut TIDAC Rx Instructions: USES IN INSULIN PUMP (DME) Omnipod 5 G6 Intro Kit (Gen 5) Cartridge SUBCUT isosorbide mononitrate 30 mg Tablet Extended Release 24 Hr 30 mg PO DAILY Qty: 90 0RF Protocol: Hold for SBP< HOLD for SBP < : 90 ascorbic acid (vitamin C) 250 mg Tablet 250 mg PO DAILY Qty: 30 0RF folic acid 1 mg Tablet 1 mg PO DAILY Qty: 30 0RF ferrous sulfate 324 mg (65 mg iron) Tablet,Delayed Release (Dr/Ec) 324 mg PO DAILY Qty: 30 0RF thiamine mononitrate (vit B1) 100 mg Tablet 100 mg PO DAILY Qty: 30 0RF aspirin 81 mg tablet,delayed release (DR/EC) 81 mg PO DAILY Discharge Orders: Discharge Order (Routine); Ordered 06/28/24 Ordered By: Garret Cifuentes Diet: fluid restrict Activity on Discharge: As tolerated Stand Alone Forms: Patient Portal Discharge page Print Language: Belgian Care Plan Goals: avoid hospitalizations, manage chf Health Concerns: chf Plan of Treatment: continue diuretics, avoid excess fluids, low salt diet monitor weights and symptoms and reach out early to providers to implement changes to avoid hospitalization Assessment: see above
--- NOTE | 2024-06-28 09:36 | MHC.CM.PN ---
Pt has been medically cleared for DC, he will go home via family transport, plan is self care.
[2024-06-28 10:52] LABS: Glucose, Whole Blood 117 mg/dL (60-115)
--- NOTE | 2024-06-28 11:19 | P.PNNP_ITS ---
Subjective Subjective Date of Service: 06/28/24 Interval history: Feels better Physical Exam 2 Vital Signs: Vital Signs: Last Vital Signs Temp 97.5 F 06/28/24 07:11 Pulse 77 06/28/24 07:11 Resp 20 06/28/24 07:11 BP 129/59 L 06/28/24 07:11 Pulse Ox 96 06/28/24 07:11 O2 Del Method Nasal Cannula 06/28/24 07:11 O2 Flow Rate 3 06/28/24 07:11 FiO2 35 06/24/24 04:27 BMI result Body Mass Index 23.4 Const: General: ill appearing Neck: Neck: Yes supple Resp: Auscultation: clear to auscultation bilaterally Cardio: Palpation: no palpable S3 Heart sounds: no rubs GI: Palpation (GI): Soft to palpation Auscultation: normal bowel sounds Neuro: Motor exam (neuro): no asterixis Objective Data Labs 06/27/24 06:54 06/28/24 06:35 Labs: Laboratory Results - last 24 hr 06/27/24 06/27/24 06/27/24 11:23 15:59 20:16 Hold Purple Top Sodium Potassium Chloride Carbon Dioxide Anion Gap BUN Creatinine Estim Creat Clear Calc Estimated GFR POC Glucose 215 H 76 187 H Fasting Glucose Calcium 06/27/24 06/27/24 06/28/24 23:15 23:39 00:17 Hold Purple Top Sodium Potassium Chloride Carbon Dioxide Anion Gap BUN Creatinine Estim Creat Clear Calc Estimated GFR POC Glucose 29 L* 31 L* 149 H Fasting Glucose Calcium 06/28/24 06/28/24 06/28/24 00:35 01:48 06:35 Hold Purple Top SEE NOTE Sodium 137 Potassium 4.5 Chloride 107 Carbon Dioxide 20 L Anion Gap 15 BUN 31 H Creatinine 1.72 H Estim Creat Clear Calc 45.1 Estimated GFR 42 POC Glucose 237 H 411 H* Fasting Glucose 359 H* Calcium 9.1 06/28/24 06/28/24 07:10 10:43 Hold Purple Top Sodium Potassium Chloride Carbon Dioxide Anion Gap BUN Creatinine Estim Creat Clear Calc Estimated GFR POC Glucose 305 H 117 H Fasting Glucose Calcium Microbiology Microbiology Results: Microbiology 06/21/24 23:43 Blood - Venous Blood Culture - Final No growth after 5 days. 06/21/24 23:44 Blood - Venous Blood Culture - Final No growth after 5 days. Procedures Date of Service Date of Service: 06/28/24 Assessment & Plan Assessment and plan (1) Acute kidney injury superimposed on CKD: Status: Acute Plan KELVIN due to compromise in renal perfusion with resultant tubular injury Keep output more than the intake Continue diuresis Keep O > I Continue to avoid nephrotoxic agents and hypotension. Continue current supportive management for now; Mild anemia. Multifactorial. 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 No absolute indication for Epogen yet will arrange for outpatient follow up in the next few weeks Time Spent With Patient Time: Total time managing care of this patient today ____ minutes. Progress Note: Quality Stroke Does the patient have a stroke diagnosis?: No
--- NOTE | 2024-06-28 21:02 | PC.NURSE ---
BC x 2 not collected until 2342 and 2343 d/t need to move patient's room d/t needing to move another patient closer to nurse's station, limited staff availability d/t multiple emergent patients, patient difficult stick.
== END 2024-06-28 11:34 | disposition home or self-care (01) | DRG 720 ==
LOC: HO.ED 21:18 → HO.EDOVER 23:57 → HO.S3 06-23 01:37 → HO.IMC 06-23 20:02
PROVIDERS: Internal Medicine; Physician Assistant Medical; Admitting Provider Student in an Organized Health Care Education/Training Program; Emergency Provider Internal Medicine; PCP Internal Medicine; Visit Provider Internal Medicine
DX: A41.9 Sepsis, unspecified organism (principal); J96.21 Acute and chronic respiratory failure with hypoxia; N17.0 Acute kidney failure with tubular necrosis; I50.33 Acute on chronic diastolic (congestive) heart failure; E11.649 Type 2 diabetes mellitus with hypoglycemia without coma; J18.9 Pneumonia, unspecified organism; I13.0 Hypertensive heart and chronic kidney disease with heart failure and stage 1 through stage 4 chronic kidney disease, or unspecified chronic kidney disease; D63.1 Anemia in chronic kidney disease; E11.22 Type 2 diabetes mellitus with diabetic chronic kidney disease; D50.9 Iron deficiency anemia, unspecified; J44.0 Chronic obstructive pulmonary disease with (acute) lower respiratory infection; K21.00 Gastro-esophageal reflux disease with esophagitis, without bleeding; F10.20 Alcohol dependence, uncomplicated; E11.65 Type 2 diabetes mellitus with hyperglycemia; G47.33 Obstructive sleep apnea (adult) (pediatric); N18.30 Chronic kidney disease, stage 3 unspecified; Z20.822 Contact with and (suspected) exposure to COVID-19; Z99.81 Dependence on supplemental oxygen; Z79.4 Long term (current) use of insulin; Z79.51 Long term (current) use of inhaled steroids; Z79.899 Other long term (current) drug therapy
CPT/HCPCS: 0241U; 36415; 71046; 71250; 80048; 80053; 82565; 82803; 82947; 83605; 83735; 83880; 84484; 85025; 85027; 85610; 87040; 92950; 93005; 94640; 94660; 99285; J0456; J0696; J1650; J1940; J2543; J3371

== ENCOUNTER → 2024-06-21 23:43 | Outpatient (BNV) | payer OTHER, SELFPAY | PROVIDERS: Admitting Provider Student in an Organized Health Care Education/Training Program; Emergency Provider Internal Medicine; PCP Internal Medicine; Visit Provider Internal Medicine Pulmonary Disease | DX: J96.21 Acute and chronic respiratory failure with hypoxia (principal); J20.9 Acute bronchitis, unspecified; I50.9 Heart failure, unspecified | CPT/HCPCS: 99222 ==

== ENCOUNTER → 2024-06-21 23:43 | Outpatient (BNV) | payer OTHER, SELFPAY | PROVIDERS: Admitting Provider Student in an Organized Health Care Education/Training Program; Emergency Provider Internal Medicine; PCP Internal Medicine; Visit Provider Internal Medicine Hypertension Specialist | DX: N17.0 Acute kidney failure with tubular necrosis (principal); N18.30 Chronic kidney disease, stage 3 unspecified; D63.1 Anemia in chronic kidney disease | CPT/HCPCS: 99222; 99232 ==

== ENCOUNTER → 2024-06-21 23:43 | Outpatient (BNV) | payer OTHER, SELFPAY | PROVIDERS: Admitting Provider Student in an Organized Health Care Education/Training Program; Emergency Provider Internal Medicine; PCP Internal Medicine; Visit Provider Student in an Organized Health Care Education/Training Program | DX: N17.9 Acute kidney failure, unspecified (principal); N18.30 Chronic kidney disease, stage 3 unspecified | CPT/HCPCS: 99223; 99232; 99233; 99239; 99499 ==

== ENCOUNTER 2024-07-15 15:05 | Inpatient (IN) | payer OTHER, SELFPAY ==
[2024-07-15] VITALS (9 sets, daily range): BP systolic 108–128; BP diastolic 54–63; PULSE 78–89; RESP 17–118; TEMP 36.7–37.3; O2SAT 88–96; BMI 25.1
--- NOTE | ~2024-07-15 | CT_ITS ---
EXAMINATION: CT CHEST WITHOUT CONTRAST CLINICAL INFORMATION: Worsening chest x-ray. White cell count. Cough. COMPARISON: Chest x-ray earlier today and chest CT June 27, 2024 TECHNIQUE: Multidetector volumetric CT imaging of the chest was done. Axial MIP volume rendering provided. Sagittal and coronal reformatted images were obtained. This CT examination was performed using dose optimization techniques as appropriate, variously including the following: *Automated exposure control *Adjustment of mA and/or kV according to patient size (this includes techniques or standardized protocols for targeted exams where dose is matched to indication/reason for exam; i.e. extremities or head) *Use of iterative reconstruction technique DLP: 253 mGy-cm FINDINGS: Significant interval worsening in diffuse patchy bilateral airspace disease. There is been interval development of small bilateral pleural effusions. There is no gross lobar consolidation. No pleural effusion or pneumothorax. Evaluation for pulmonary nodule is suboptimal given the background of airspace disease. The heart is normal in size. There is no appreciable coronary artery calcifications. No pericardial effusion. Normal caliber thoracic aorta. Interval worsening in mediastinal and hilar lymphadenopathy. No pathologically enlarged axillary lymph nodes bilaterally. Bilateral gynecomastia noted. Visualized portions of the upper abdomen are grossly unremarkable. No acute osseous abnormality. CT/CT chest wo IV con IMPRESSION: 1. Significant interval worsening in diffuse patchy bilateral airspace disease. 2. Interval development of small bilateral pleural effusions. 3. Interval worsening in mediastinal and hilar lymphadenopathy. Fleischner guidelines were followed. Electronically signed by: Harjit Lopez MD 07/15/2024 07:03 PM EDT
--- NOTE | ~2024-07-15 | XR_ITS ---
EXAMINATION: XR CHEST CLINICAL INFORMATION: Shortness of breath COMPARISON: Chest CT June 27, 2024 and chest x-ray June 21, 2024 TECHNIQUE: 2 views of the chest were obtained. FINDINGS: Cardiac silhouette is normal in size. Relatively stable appearance of mild diffuse patchy airspace disease bilaterally. There is no gross pleural effusion. No pneumothorax. No acute osseous abnormality. XR/XR chest 2V IMPRESSION: Similar appearance of mild diffuse patchy airspace disease. Electronically signed by: Harjit Lopez MD 07/15/2024 05:33 PM EDT
--- NOTE | 2024-07-15 15:35 | ED.GENADULT ---
HPI - General Adult General Chief complaint: Dyspnea Stated complaint: CHF COPD diff breathing Time Seen by Provider: 07/15/24 16:25 Source: patient Mode of arrival: ambulatory Limitations: no limitations History of Present Illness ED Provider: DAYLIN HPI narrative: 49 yo male with PMH of IDDM, HTN, mood disorder, COPD with chronic hypoxia and PRN 02, alcohol use disorder, CHF, esophagitis, GERD, CKD just admitted here with 06/28 discharge for decompensated CHF and pneumonia treated with IV diuretics and ceftriaxone and azithromycin. He comes in today with c/o waking up today and feeling very short of breath. He notes his ankles are more swollen. He thinks he gained 5lbs. He denies coughing up sputum or fevers. He does feel achy. He has been taking 80mg lasix BID. His grandson has been sick and he has been around him. MD complaint: dyspnea Onset (ago): day(s) (1) Location: chest Radiation: non-radiation Severity: moderate Quality: aching Relieving factors: none Exacerbating factors: movement Associated symptoms: cough, malaise, shortness of breath and weakness Treatments prior to arrival: none Related Data Home Medications ?Medication ?Instructions ?Recorded ?Confirmed escitalopram oxalate 10 mg tablet 10 mg PO DAILY 08/01/22 06/22/24 trazodone 50 mg tablet 100 mg PO BEDTIME 08/01/22 06/22/24 aspirin 81 mg tablet,delayed 81 mg PO DAILY 10/06/22 06/22/24 release atorvastatin 40 mg tablet 40 mg PO DAILY 10/06/22 06/22/24 gabapentin 300 mg capsule 300 mg PO TID 10/06/22 06/22/24 metoprolol succinate 100 mg 100 mg PO DAILY 10/06/22 06/22/24 tablet,extended release 24 hr furosemide 40 mg tablet 80 mg PO DAILY 06/26/23 06/22/24 furosemide 40 mg tablet 40 mg PO BEDTIME 11/24/23 06/22/24 fluticasone 250 mcg-salmeterol 50 1 ea inhalation BID 12/22/23 06/22/24 mcg/dose blistr powdr for inhalation (Advair Diskus) albuterol sulfate 90 mcg/actuation 2 puff inhalation Q4H PRN 04/26/24 06/22/24 aerosol inhaler bronchospasm insulin lispro 100 unit/mL 1 sliding scale dose subcut TIDAC 04/26/24 06/22/24 subcutaneous solution amlodipine 5 mg tablet 10 mg PO DAILY 06/02/24 06/22/24 diclofenac sodium 1 % topical gel 1 g topical QID PRN Pain 06/02/24 06/22/24 insulin pump cartridge,automated 06/11/24 06/11/24 dose,BT with controller subcutaneous (Omnipod 5 G6 Intro Kit (Gen 5) subcutaneous cartridge with controller) Previous Rx's ?Medication ?Instructions ?Recorded magnesium oxide 400 mg (241.3 mg 400 mg PO BIDPC #60 tabs 08/20/22 magnesium) tablet sucralfate 1 gram tablet 1 g PO QIDACHS #120 tabs 09/10/22 hydralazine 100 mg tablet 100 mg PO TID 30 days #90 tabs 05/09/23 pantoprazole 40 mg tablet,delayed 40 mg PO BID 60 days #120 tabs 06/06/24 release nicotine 14 mg/24 hr daily 1 patch transdermal Q24H #28 ea 06/09/24 transdermal patch (Nicoderm CQ) ascorbic acid (vitamin C) 250 mg 250 mg PO DAILY #30 tabs 06/19/24 tablet ferrous sulfate 324 mg (65 mg 324 mg PO DAILY #30 tabs 06/19/24 iron) tablet,delayed release folic acid 1 mg tablet 1 mg PO DAILY #30 tabs 06/19/24 isosorbide mononitrate 30 mg 30 mg PO DAILY #90 tabs 06/19/24 tablet,extended release 24 hr thiamine mononitrate (vit B1) 100 100 mg PO DAILY #30 tabs 06/19/24 mg tablet Allergies Allergy/AdvReac Type Severity Reaction Status Date / Time dulaglutide [From [facility]] Allergy Unknown Verified 07/15/24 15:37 metformin [METFORMIN] AdvReac Mild DIARRHEA, Verified 07/15/24 15:37 nausea and vomiting Review of Systems Review of Systems: Constitutional : No Fever, No Chills ENT/Mouth : No sore throat, No Rhinorrhea, No Swallowing Difficulty Eyes: No Eye Pain, No Swelling, No Redness Cardiovascular : No Chest Pain, positive SOB, No Orthopnea, positive Edema Respiratory : pos Cough, No Sputum, No Wheezing, positive dyspnea Gastrointestinal : No Nausea, No Vomiting, No Diarrhea, No abdominal Pain, No Hematochezia, No Melena Genitourinary : No Dysuria, No Urinary Frequency, No Hematuria Musculoskeletal : No joint pain, pos Myalgias Skin : No Skin Lesions, No rash Neuro : No Weakness, No Numbness, No Dizziness, No Headache Psych : No Anxiety/Panic, No Depression All other systems reviewed and are negative [facility] Past Medical History Attestation statement: The following information was validated with the patient. Source: old records reviewed Medical History KELVIN (acute kidney injury) Hypertension Chronic heart failure with preserved ejection fraction (HFpEF) Acute respiratory failure with hypoxia Congestive heart failure CKD (chronic kidney disease) stage 1, GFR 90 ml/min or greater Depression COPD exacerbation YARELIS (obstructive sleep apnea) CHF exacerbation Hypoxia Acute respiratory failure Uncontrolled hypertension Acute on chronic diastolic (congestive) heart failure Acute on chronic anemia Hyperglycemia due to type 2 diabetes mellitus YARELIS (obstructive sleep apnea) Congestive heart failure Anxiety HLD (hyperlipidemia) Diabetes Hypercholesteremia HTN (hypertension) Asthma PAD (peripheral artery disease) Surgical History History of esophagogastroduodenoscopy S/P angiogram of extremity Family History Family History Father Alzheimer disease CAD (coronary artery disease) Social History Social History Household Members: Family Household Members Other:: brother Housing: Apartment Do you presently have visiting nurse or other home services: Yes ([facility] for housing help and meals) Unable to assess alcohol history related to: Unknown Alcohol intake: former Comment: pt is independent in room Patient Tobacco Use Status: Current everyday Tobacco user Tobacco use type: Cigarette Cigarettes Per Day: 5 Years Smoked: 33 Smoked in Last 30 Days: Yes e-Cigarette/Vaping Use: Never Used Second Hand Smoke Exposure: Yes (brother smokes in home) Use of substances other than those prescribed or required for medical reasons: Yes Substance Use Type: Marijuana Advance Directives: Yes Advance Directives on File: Yes Advance Directives Date on File: 06/21/21 Do you have a plan to hurt others: No Plan service: No Current occupational status: disabled Physical Exam ED Vital Signs: Vital Signs - 24 hr 07/15/24 15:34 07/15/24 16:32 07/15/24 17:42 Temperature 99.1 F 98.1 F Pulse Rate 80 80 78 Respiratory Rate 22 H 22 H 31 H Blood Pressure 113/54 L 128/63 Pulse Oximetry 95 88 L Oxygen Delivery Method Room Air Nasal Cannula Oxygen Flow Rate 3 07/15/24 18:22 Temperature 98.4 F Pulse Rate 85 Respiratory Rate 118 H Blood Pressure 127/61 Pulse Oximetry 93 Oxygen Delivery Method Nasal Cannula Oxygen Flow Rate 4 BMI result Body Mass Index 25.1 Appearance: Alert. Oriented X3. Mild acute distress. Eyes: Pupils equal, round and reactive to light. ENT: Pharynx normal. Neck: Normal inspection. Neck supple. CVS: Normal heart rate and rhythm. Pulses normal. Respiratory: Mild respiratory distress - tachypnea and retractions. Breath sounds very diminished in both bases R > L Abdomen: Soft and non-tender. Skin: Skin warm and dry. Normal skin color. Normal skin turgor. Extremities: trace bilateral ankle lower extremity edema. No calf ttp Neuro: Oriented X 3. No motor deficit. No sensory deficit. Course Course Course Narrative: This is a Rapid Medical Examination (RME) performed by Nelli Downey PA-C in triage. Full HPI, ROS, assessment and treatment plan per primary provider in the Main ED. 48 yo male with pertinent history of insulin-dependent diabetes mellitus, hypertension, mood disorder, COPD with chronic hypoxia on prn home night time O2, alcohol use disorder, congestive heart failure with preserved EF, esophagitis with gastroesophageal reflux disease, alcohol use disorder, CKD stage 3 here for eval of shortness of breath and LE swelling since this morning. on 80mg lasix am/pm. reports 5lb weight gain since last night. Plan: lab, cxr, ekg Reevaluation(s) Reevaluation #1: infection suspected at 547pm Medications Administered Discontinued Medications Generic Name Dose Route Start Last Admin Trade Name Freq PRN Reason Stop Dose Admin Albuterol Sulfate 5 mg/ 0 mg 07/15/24 17:42 07/15/24 17:56 Albuterol/Ipratropium 3 ml INHALE 07/15/24 17:43 1 each ONCE ONE Administration Furosemide 20 mg 07/15/24 17:42 07/15/24 18:25 Furosemide 20 Mg/2 Ml Vial IVPUSH 07/15/24 17:43 20 mg ONCE ONE Administration Protocol Piperacillin Sod/Tazobactam 100 mls @ 200 mls/hr 07/15/24 17:42 07/15/24 18:56 Sod 4.5 gm/ Sodium Chloride IV 07/15/24 18:11 Infused ONCE ONE Infusion Insulin Human Regular 5 unit 07/15/24 16:57 07/15/24 17:51 Insulin Regular, Human 100 Unit/Ml 10 Ml Vial IVPUSH 07/15/24 16:58 5 unit ONCE ONE Administration Medical Decision Making Medical Decision Making MDM Narrative: 49 yo male with PMH of IDDM, HTN, mood disorder, COPD with chronic hypoxia and PRN 02, alcohol use disorder, CHF, esophagitis, GERD, CKD here with c/o worsening dyspnea, cough, body aches around his sick grandson - at this time will need labs, EKG, cultures, lactic acid, bronch protocol, resp panel, CT scan for pneumonia, start on empiric lasix and IV zosyn - BNP is up but his Cr is also up could be slightly cardiorenal as he reports weight gain and new leg edema. He has nasal congestion as well. Possible admission at this time given work up Differential Diagnosis Differential Diagnoses: The differential diagnosis associated with the presentation includes CHF, pneumonia, bronchitis Admission/Observation Consideration of admission/observation: Escalation of care including admission/observation considered worsening lung disease plan to admit for IV abx and diuresis Consult Healthcare Provider Management of the patient was discussed with: Hospitalist (will admit) Lab Data [facility] Lab Attestation statement: I reviewed the patient's lab results. 07/15/24 15:57 07/15/24 15:57 Labs: Lab Results 07/15/24 07/15/24 07/15/24 Range/Units 15:57 17:11 17:56 WBC 16.9 H (4.8-10.8) X10*3/uL RBC 3.64 L (4.60-5.80) X10*6/uL Hgb 8.4 L (14.0-18.0) g/dl Hct 27.5 L (42.0-52.0) % MCV 75.5 L (80.0-98.0) fL MCH 23.1 L (27.0-33.0) pg MCHC 30.5 L (31.0-36.0) g/dl RDW 17.9 H (11.0-16.0) % Plt Count 431 H (160-400) X10*3/uL MPV 10.2 (9.4-12.4) fL Immature Gran % (Auto) 0.5 H (0.0-0.4) % Neut % (Auto) 83.9 H (45-73) % Lymph % (Auto) 7.3 L (20-40) % [place] % (Auto) 6.8 (2-11) % Eos % (Auto) 1.3 (0-4) % Baso % (Auto) 0.2 (0-2) % Lymph # (Auto) 1.2 (1.2-4.9) X10*3/uL [place] # (Auto) 1.2 (0.1-1.2) X10*3/uL Eos # (Auto) 0.2 (0.0-0.4) X10*3/uL Baso # (Auto) 0.0 (0.0-0.2) X10*3/uL Abs Immat Gran (auto) 0.09 H (0.00-0.03) X10*3/uL Absolute Neuts (auto) 14.2 H (2.0-8.3) x10*3/uL Absolute Nucleated RBC 0.000 (0.0-0.012) X10*3/uL Nucleated RBC % (auto) 0.0 (0.0-0.2) /100WBC Sodium 137 (135-145) mmol/L Potassium 4.1 (3.3-5.1) mmol/L Chloride 107 (96-108) mmol/L Carbon Dioxide 21 L (22-29) mmol/L Anion Gap 13 (12-20) BUN 35 H (9-16) mg/dL Creatinine 2.25 H (0.5-1.4) mg/dL Estim Creat Clear Calc 34.1 Estimated GFR 31 POC Glucose 366 H* (60-115) mg/dL Random Glucose 409 H* (60-115) mg/dL Lactic Acid 1.1 (0.5-2.0) mmol/L Calcium 8.6 (8.4-10.2) mg/dL Magnesium 2.2 (1.6-2.6) mg/dL Total Bilirubin 0.3 (0.0-1.0) mg/dL AST 8 (5-37) U/L ALT 9 (0-40) U/L Alkaline Phosphatase 97 (39-117) U/L Troponin I High Sens < 2.7 D (<3.5-35.0) ng/L B-Natriuretic Peptide 525 H (<100) pg/mL Total Protein 6.7 (6.5-8.0) g/dL Albumin 3.6 (3.5-5.0) g/dL Influenza Type A (PCR) NEGATIVE (Negative) Influenza Type B (PCR) NEGATIVE (Negative) RSV RNA Qual (PCR) NEGATIVE (Negative) SARS-CoV-2 RNA (RT-PCR) NEGATIVE (Negative) Independent Interpretation I performed an independent interpretation of an: EKG, Plain X-Ray (bilateral airspace disease) and CT Scan (diffuse opacities) Interpretation: Rate: 82 Rhythm: NSR [place]: normal Normal P waves. Normal PHYLLIS. Normal QRS complex. ST T wave : normal no JERRY qTC: 432 prior studies: no acute ischemia The study has been interpreted contemporaneously by me. . Radiology Impression Discussion of test interpretation with radiology: I have reviewed the radiologist's reading. External Record Review External record reviewed: Inpatient record Discharge Plan Discharge Clinical Impression: Congestive heart failure, Elevated WBC count, Multifocal pneumonia, Acute hyperglycemia Patient Disposition: Admitted As Inpatient Prescriptions: No Action hydralazine 100 mg tablet 100 mg PO TID 30 Days Qty: 90 5RF sucralfate 1 gram Tablet 1 g PO QIDACHS Qty: 120 0RF trazodone 50 mg tablet 100 mg PO BEDTIME escitalopram oxalate 10 mg tablet 10 mg PO DAILY atorvastatin 40 mg tablet 40 mg PO DAILY gabapentin 300 mg capsule 300 mg PO TID metoprolol succinate 100 mg tablet extended release 24 hr 100 mg PO DAILY magnesium oxide 400 mg (241.3 mg magnesium) Tablet 400 mg PO BIDPC Qty: 60 0RF fluticasone propion-salmeterol [Advair Diskus] 250-50 mcg/dose blister with device 1 ea inhalation BID amlodipine 5 mg tablet 10 mg PO DAILY diclofenac sodium 1 % gel 1 g TOPICAL QID PRN (Reason: Pain) Rx Instructions: left chest wall pantoprazole 40 mg tablet,delayed release (/EC) 40 mg PO BID 60 Days Qty: 120 0RF nicotine [Nicoderm CQ] 14 mg/24 hr patch 24 hour 1 patch transdermal Q24H Qty: 28 0RF furosemide 40 mg tablet 80 mg PO DAILY Rx Instructions: IN THE MORNING furosemide 40 mg tablet 40 mg PO BEDTIME albuterol sulfate 90 mcg/actuation HFA aerosol inhaler 2 puff inhalation Q4H PRN (Reason: bronchospasm) insulin lispro 100 unit/mL solution 1 sliding scale dose subcut TIDAC Rx Instructions: USES IN INSULIN PUMP (DME) Omnipod 5 G6 Intro Kit (Gen 5) Cartridge SUBCUT isosorbide mononitrate 30 mg Tablet Extended Release 24 Hr 30 mg PO DAILY Qty: 90 0RF Protocol: Hold for SBP< HOLD for SBP < : 90 ascorbic acid (vitamin C) 250 mg Tablet 250 mg PO DAILY Qty: 30 0RF folic acid 1 mg Tablet 1 mg PO DAILY Qty: 30 0RF ferrous sulfate 324 mg (65 mg iron) Tablet,Delayed Release (Dr/Ec) 324 mg PO DAILY Qty: 30 0RF thiamine mononitrate (vit B1) 100 mg Tablet 100 mg PO DAILY Qty: 30 0RF aspirin 81 mg tablet,delayed release (DR/EC) 81 mg PO DAILY Print Language: Maltese
--- NOTE | 2024-07-15 15:37 | ECG_ITS ---
Test Reason : chf/copd Blood Pressure : / mmHG Vent. Rate : 082 BPM Atrial Rate : 082 BPM P-R Int : 150 ms QRS Dur : 078 ms QT Int : 370 ms P-R-T Axes : 045 045 039 degrees QTc Int : 432 ms Normal sinus rhythm Normal ECG When compared with ECG of 22-JUN-2024 19:36, No significant change was found Referred By: Jillian Downey Electronically Signed By:BETO TURNER
[2024-07-15 16:03] LABS: MANUAL DIFF FLAG NO
[2024-07-15 16:15] LABS: Basophils Percent Auto 0.2 % (0-2); Eosinophils Absolute Auto 0.2 X10*3/uL (0.0-0.4); Eosinophils Percent Auto 1.3 % (0-4); Hematocrit 27.5 % (42.0-52.0); Hemoglobin 8.4 g/dl (14.0-18.0); Imm Gran Abs Auto 0.09 X10*3/uL (0.00-0.03); Imm Gran Pct Auto 0.5 % (0.0-0.4); Lymphocytes Absolute Auto 1.2 X10*3/uL (1.2-4.9); Lymphocytes Percent Auto 7.3 % (20-40); Mean Corpuscular HGB Conc 30.5 g/dl (31.0-36.0); Mean Corpuscular Hemoglobin 23.1 pg (27.0-33.0); Mean Corpuscular Volume 75.5 fL (80.0-98.0); Mean Platelet Volume 10.2 fL (9.4-12.4); Monocytes Absolute Auto 1.2 X10*3/uL (0.1-1.2); Monocytes Percent Auto 6.8 % (2-11); Neutrophils Absolute Auto 14.2 x10*3/uL (2.0-8.3); Neutrophils Percent Auto 83.9 % (45-73); Platelet Count 431 X10*3/uL (160-400); Red Blood Count 3.64 X10*6/uL (4.60-5.80); Red Cell Distribution Width 17.9 % (11.0-16.0); White Blood Count 16.9 X10*3/uL (4.8-10.8)
[2024-07-15 16:26] LABS: B Type Natriuretic Peptide 525 pg/mL (<100)
[2024-07-15 16:27] LABS: Troponin-I High Sensitivity < 2.7 ng/L (<3.5-35.0)
[2024-07-15 16:28] LABS: Alanine Aminotransferase 9 U/L (0-40); Albumin Level 3.6 g/dL (3.5-5.0); Alkaline Phosphatase 97 U/L (39-117); Anion Gap 13 (12-20); Aspartate Amino Transferase 8 U/L (5-37); Bilirubin Total 0.3 mg/dL (0.0-1.0); Blood Urea Nitrogen 35 mg/dL (9-16); Calcium 8.6 mg/dL (8.4-10.2); Carbon Dioxide 21 mmol/L (22-29); Chloride 107 mmol/L (96-108); Creatinine Clr Calc Pharmacy 34.1; Estimated Glomerular Filt Rate 31; Glucose Random 409 mg/dL (60-115); Magnesium 2.2 mg/dL (1.6-2.6); Potassium 4.1 mmol/L (3.3-5.1); Sodium 137 mmol/L (135-145); Total Protein 6.7 g/dL (6.5-8.0)
--- NOTE | 2024-07-15 16:33 | MHC.EDTECH ---
This Tech assumed care of this pt upon arrival. pt changed over into a hospital gown and placed on a vehicle monitor technician. pt placed on a nasal canula w/ 3liters of oxygen per nurse instruction
[2024-07-15 16:46] LABS: Influenza A PCR NEGATIVE (Negative); Influenza B PCR NEGATIVE (Negative); Resp Syncy Virus RNA Qual PCR NEGATIVE (Negative); SARS COV2 PCR INHOUSE NEGATIVE (Negative)
[2024-07-15 17:14] LABS: Glucose, Whole Blood 366 mg/dL (60-115)
[2024-07-15] MEDS: Insulin Regular, Human 100 UNIT/ML 10 ML VIAL IVPUSH (17:51)
[2024-07-15] MEDS: Albuterol Sulfate 5 MG, Albuterol/Iprat 2.5/0.5MG 3 ML 3 ML INHALE ×2 (17:56→21:14)
[2024-07-15 18:17] LABS: Lactic Acid 1.1 mmol/L (0.5-2.0)
[2024-07-15] MEDS: Furosemide 20 MG/2 ML VIAL IVPUSH ×2 (18:25→20:21)
[2024-07-15] MEDS: Piperacillin Sodium/Tazobactam 4.5 GM in 0.9 % Sodium Chloride 100 ML IV (18:26)
--- NOTE | 2024-07-15 19:07 | PC.NURSE ---
This RN assumed pt care @ 1900. Pt ca&ox4, no signs of distress Pt reporting 6/10 pain Plan of care ongoing.
[2024-07-15 19:17] LABS: Glucose, Whole Blood 262 mg/dL (60-115)
[2024-07-15] MEDS: methylPREDNISolone Sod Succ 125 MG/2 ML VIAL 60 MG IVPUSH (19:23)
--- NOTE | 2024-07-15 19:25 | PC.NURSE ---
This RN called and spoke to pharmacy (Dick) regarding vanco Per Dick will bring med to ED. Plan of care ongoing.
[2024-07-15 19:27] LABS: VBG Base Excess -2.9 mmol/L; VBG HCO3 20 mmol/L (22-26); VBG pCO2 31 mmHg; VBG pH 7.42 (7.32-7.43); VBG pO2 130 mmHg
[2024-07-15 19:27] LABS: Venous Blood Gas Refer to POC result
--- NOTE | 2024-07-15 19:33 | PM.IMHP ---
History of Present Illness Date of Service: 07/15/24 Attending physician on admission: Samantha Chowdhury Chief Complaint: Dyspnea 49-year-old male with pertinent history of insulin-dependent diabetes mellitus, hypertension, mood disorder, COPD on prn 3-4L O2, alcohol use disorder in early remission, congestive heart failure preserved EF, esophagitis with GERD, CKD stage 3 presented to the ED earlier today for evaluation dyspnea both at rest and worse with exertion that started earlier today. He was recently admitted and discharged from our facility on 06/28 for CHF exacerbation with pneumonia. He has been compliant with all therapies. About 2 days ago reported increased edema in the bilateral lower extremities and since then has gained 5 lb. Reports dyspnea started this morning. He has a mild cough without any sputum production. No fevers or chills, sore throat, congestion, abdominal pain, nausea, vomiting, diarrhea, urinary symptoms, lightheadedness, chest pain. Intermittent wheezing. Reports his grandson is sick with the upper respiratory infection currently. Has not required additional O2. Since arrival, patient has been tachypneic, and has intermittently desatted to 88-89% but remains on 3 L supplemental O2. He is afebrile, no hypotension. There is a leukocytosis of 16.9. Creatinine 2.25, baseline appears to be between 1.4-1.7. BUN 35. Electrolyte levels normal except for CO2 21. Subsequent VBG reassuring with pH 7.42, pCO2 31, bicarb 20. Initially hyperglycemic on arrival with glucose for 0 9, received 5 units regular insulin with improvement to 262. Lactic acid 1.1. Troponin level undetectable. BNP 525. He is negative for COVID, flu, RSV and full viral respiratory panel remains pending. CT of the chest shows significant interval worsening and diffuse patchy bilateral airspace disease as well as interval development of small bilateral pleural effusions and worsening of mediastinal and hilar lymphadenopathy. In the ED, has received IV Lasix, 5 units regular insulin, IV Zosyn, IV vancomycin and 60 mg IV methylprednisolone along with DuoNeb. Review of Systems Review of Systems: Yes all other systems are reviewed and are negative [facility] Medical History KELVIN (acute kidney injury) Hypertension Chronic heart failure with preserved ejection fraction (HFpEF) Acute respiratory failure with hypoxia Congestive heart failure CKD (chronic kidney disease) stage 1, GFR 90 ml/min or greater Depression COPD exacerbation YARELIS (obstructive sleep apnea) CHF exacerbation Hypoxia Acute respiratory failure Uncontrolled hypertension Acute on chronic diastolic (congestive) heart failure Acute on chronic anemia Hyperglycemia due to type 2 diabetes mellitus YARELIS (obstructive sleep apnea) Congestive heart failure Anxiety HLD (hyperlipidemia) Diabetes Hypercholesteremia HTN (hypertension) Asthma PAD (peripheral artery disease) Family History Father Alzheimer disease CAD (coronary artery disease) Surgical History History of esophagogastroduodenoscopy S/P angiogram of extremity Social History Household Members: Family Household Members Other:: brother Housing: Apartment Do you presently have visiting nurse or other home services: Yes ([facility] for [facility] help and meals) Unable to assess alcohol history related to: Unknown Alcohol intake: former Comment: pt is independent in room Patient Tobacco Use Status: Current everyday Tobacco user Tobacco use type: Cigarette Cigarettes Per Day: 5 Years Smoked: 33 Smoked in Last 30 Days: Yes e-Cigarette/Vaping Use: Never Used Second Hand Smoke Exposure: Yes (brother smokes in home) Use of substances other than those prescribed or required for medical reasons: Yes Substance Use Type: Marijuana Advance Directives: Yes Advance Directives on File: Yes Advance Directives Date on File: 06/21/21 Do you have a plan to hurt others: No Plan service: No Current occupational status: disabled Meds Allergies Allergy/AdvReac Type Severity Reaction Status Date / Time [facility] Allergy Unknown Verified 07/15/24 15:37 metformin [METFORMIN] AdvReac Mild DIARRHEA, Verified 07/15/24 15:37 nausea and vomiting Active Medications: Current Medications Vancomycin HCl 1,000 mg/Vancomycin HCl 750 mg/ Sodium Chloride 535 mls @ 267.5 mls/hr IV ONCE ONE Stop: 07/15/24 21:29 Home Medications ?Medication ?Instructions ?Recorded ?Confirmed ?Last Taken ?Type escitalopram oxalate 10 mg tablet 10 mg PO DAILY 08/01/22 07/15/24 07/15/24 History trazodone 50 mg tablet 100 mg PO BEDTIME 08/01/22 07/15/24 07/15/24 History aspirin 81 mg tablet,delayed 81 mg PO DAILY 10/06/22 07/15/24 07/15/24 History release atorvastatin 40 mg tablet 40 mg PO DAILY 10/06/22 07/15/24 07/15/24 History gabapentin 300 mg capsule 300 mg PO TID 10/06/22 07/15/24 07/15/24 History metoprolol succinate 100 mg 100 mg PO DAILY 10/06/22 07/15/24 07/15/24 History tablet,extended release 24 hr furosemide 40 mg tablet 80 mg PO DAILY 06/26/23 07/15/24 07/15/24 History furosemide 40 mg tablet 40 mg PO BEDTIME 11/24/23 07/15/24 07/15/24 History fluticasone 250 mcg-salmeterol 50 1 ea inhalation BID 12/22/23 07/15/24 07/15/24 History mcg/dose blistr powdr for inhalation (Advair Diskus) albuterol sulfate 90 mcg/actuation 2 puff inhalation Q4H PRN 04/26/24 07/15/24 07/15/24 History aerosol inhaler bronchospasm insulin lispro 100 unit/mL 1 sliding scale dose subcut TIDAC 04/26/24 06/22/24 07/15/24 History subcutaneous solution amlodipine 5 mg tablet 10 mg PO DAILY 06/02/24 07/15/24 07/15/24 History diclofenac sodium 1 % topical gel 1 g topical QID PRN Pain 06/02/24 07/15/24 07/15/24 History insulin pump cartridge,automated 06/11/24 06/11/24 Unknown History dose,BT with controller subcutaneous (Omnipod 5 G6 Intro Kit (Gen 5) subcutaneous cartridge with controller) omeprazole 40 mg capsule,delayed 40 mg PO DAILY@0630 07/15/24 07/15/24 07/15/24 History release Physical Exam Vital Signs and Narrative: Vital Signs: Last Vital Signs Temp 98.4 F 07/15/24 18:22 Pulse 85 07/15/24 18:22 Resp 118 H 07/15/24 18:22 BP 127/61 07/15/24 18:22 Pulse Ox 93 07/15/24 18:22 O2 Del Method Nasal Cannula 07/15/24 18:22 O2 Flow Rate 4 09/16/24 18:22 BMI result Body Mass Index 25.1 Constitutional - Awake and Alert, No apparent distress Eyes - PERRLA, EOMI Cardiovascular - S1S2, RRR, 2+ ble edema Respiratory - Normal lung expansion, Normal respiratory effort, No respiratory distress, scattered crackles bilaterally, diminished R base. No wheezing Gastrointestinal - NT / ND; +BS; No rebound or guarding Extremities - no calf tenderness bilaterally, no swelling Skin - Warm/Dry Neurological - Alert & oriented x3 Psychological - Appropriate affect Results Labs 07/15/24 15:57 07/15/24 15:57 Labs: Laboratory Results - last 24 hr 07/15/24 07/15/24 07/15/24 15:57 17:11 17:56 MCV 75.5 L MCH 23.1 L MCHC 30.5 L RDW 17.9 H Plt Count 431 H MPV 10.2 Immature Gran % (Auto) 0.5 H Neut % (Auto) 83.9 H Lymph % (Auto) 7.3 L [place] % (Auto) 6.8 Eos % (Auto) 1.3 Baso % (Auto) 0.2 Lymph # (Auto) 1.2 [place] # (Auto) 1.2 Eos # (Auto) 0.2 Baso # (Auto) 0.0 Abs Immat Gran (auto) 0.09 H Absolute Neuts (auto) 14.2 H Absolute Nucleated RBC 0.000 Nucleated RBC % (auto) 0.0 VBG pH VBG pCO2 VBG pO2 VBG HCO3 VBG O2 Saturation VBG Base Excess Anion Gap 13 Estim Creat Clear Calc 34.1 Estimated GFR 31 POC Glucose 366 H* Random Glucose 409 H* Lactic Acid 1.1 Calcium 8.6 Magnesium 2.2 Total Bilirubin 0.3 AST 8 ALT 9 Alkaline Phosphatase 97 Troponin I High Sens < 2.7 D B-Natriuretic Peptide 525 H Total Protein 6.7 Albumin 3.6 Influenza Type A (PCR) NEGATIVE Influenza Type B (PCR) NEGATIVE RSV RNA Qual (PCR) NEGATIVE SARS-CoV-2 RNA (RT-PCR) NEGATIVE 07/15/24 07/15/24 19:13 19:23 MCV MCH MCHC RDW Plt Count MPV Immature Gran % (Auto) Neut % (Auto) Lymph % (Auto) [place] % (Auto) Eos % (Auto) Baso % (Auto) Lymph # (Auto) [place] # (Auto) Eos # (Auto) Baso # (Auto) Abs Immat Gran (auto) Absolute Neuts (auto) Absolute Nucleated RBC Nucleated RBC % (auto) VBG pH 7.42 VBG pCO2 31 VBG pO2 130 VBG HCO3 20 L VBG O2 Saturation 99.0 VBG Base Excess -2.9 Anion Gap Estim Creat Clear Calc Estimated GFR POC Glucose 262 H Random Glucose Lactic Acid Calcium Magnesium Total Bilirubin AST ALT Alkaline Phosphatase Troponin I High Sens B-Natriuretic Peptide Total Protein Albumin Influenza Type A (PCR) Influenza Type B (PCR) RSV RNA Qual (PCR) SARS-CoV-2 RNA (RT-PCR) Imaging Radiologist's Impressions: Impressions Chest X-Ray 07/15/24 16:30 IMPRESSION: Similar appearance of mild diffuse patchy airspace disease. Electronically signed by: Harjit Lopez MD 07/15/2024 05:33 PM EDT RP Chest CT 07/15/24 17:24 IMPRESSION: 1. Significant interval worsening in diffuse patchy bilateral airspace disease. 2. Interval development of small bilateral pleural effusions. 3. Interval worsening in mediastinal and hilar lymphadenopathy. Fleischner guidelines were followed. Electronically signed by: Harjit Lopez MD 07/15/2024 07:03 PM EDT RP Assessment and Plan (1) Multifocal pneumonia: Status: Acute (2) Congestive heart failure: Qualifiers: Heart failure chronicity: acute on chronic Heart failure type: unspecified Qualified Code(s): I50.9 - Heart failure, unspecified Status: Acute (3) Acute renal insufficiency: Status: Acute Plan 48-year-old male with pertinent history of insulin-dependent diabetes mellitus, hypertension, mood disorder, COPD on prn 2-3L O2, alcohol use disorder, congestive heart failure preserved EF who was discharged 2 days ago from our facility due to CHF exacerbation admitted for acute CHF exacerbation. #Acute CHF exacerbation with chronic hypoxemic respiratory failure -echo 06/08 shows normal LV systolic function with grade II diastolic dysfunction -40mg IV lasix bedtime, 80mg daily -cardiac diet -strict I&O -daily weights -follow renal function/lytes -continue supplemental O2 to maintain oximetry 88-92% #Acute pneumonia with sepsis -negative for COVID-19, RSV, influenza. Full viral respiratory panel pending -chest CT shows worsening of bilateral airspace disease. Last admission was treated with ceftriaxone azithromycin. Initiate IV Zosyn and vancomycin (initiated 07/15) -sputum culture, strep pneumo antigen, Legionella antigen, MRSA nasal swab pending -symptomatic management -leukocytosis 16 and tachypnea. No lactic acidosis. KELVIN is likely cardiorenal due to chf, not severe sepsis. No severe sepsis on admission. No shock -follow CBC, cultures #Acute kidney injury -suspect cardiorenal syndrome -creatinine 2.4, baseline appears to be around 1.4-1.7 -IV diuresis as above -avoid nephrotoxins -cardiac diet as above -if not improving, consider nephro consult -follow renal function/lytes # COPD -no acute exacerbation. Hold on further steroids -continue maintenance inhalers, albuterol p.r.n. # insulin-dependent type 2 diabetes -POC glucose, diabetic diet -ssi # hypertension -continue hydralazine, amlodipine, metoprolol, isosorbide. Hold po lasix # GERD -PPI, Carafate # nicotine dependence -patches for replacement therapy, cessation advised # alcohol use disorder -in early remission. no etoh in 3 months # chronic iron-deficiency anemia -H/H baseline, above transfusion threshold -continue ferrous sulfate DVT prophylaxis- lovenox Full code Patient requires inpatient stay at least 2 midnights for management of CHF exacerbation with pneumonia and sepsis requiring IV diuresis and iv abx as well as close monitoring of renal function electrolyte levels and monitoring of hemodynamics and cultures Quality Stroke Does the patient have a stroke diagnosis?: No VTE Prior VTE?: No VTE Risk Level:: Medical - moderate - high VTE Device Contraindication: Treatment Not Indicated VTE Drug Contraindication: N/A - Med Ordered
[2024-07-15] MEDS: vancomycin HCL 1,000 MG, vancomycin HCL 750 MG in 0.9 % Sodium Chloride 500 ML 267.5 MG IV (19:59)
--- NOTE | 2024-07-15 20:03 | PHA.MEDREC ---
Pharmacy Consult ? Medication Reconciliation Pharmacy has completed the medication reconciliation. Utilized discharge packet from 06/28/24. Spoke with patient to confirm he is no longer on Protonix, and is now on Prilosec.
[2024-07-15] MEDS: Enoxaparin Sodium 40 MG/0.4 ML SYRINGE SUBCUT (20:22)
--- NOTE | 2024-07-15 20:28 | PC.NURSE ---
Pt medicated per dec Pt requested and given food and drink Plan of care ongoing.
--- NOTE | 2024-07-15 20:30 | PC.NURSE ---
Pt currently on 4L n/c d/t desat to 86% while lying down Plan of care ongoing.
--- NOTE | 2024-07-15 20:37 | PC.NURSE ---
pt came in with a insulin infusion pump on that he replaces every three days. Pt removed it and it was discarded
--- NOTE | 2024-07-15 20:45 | PHA.PROG ---
Admission Date/Time: July 15, 2024 20:05 Indication: Respiratory Weight in k.4 kg Adjusted body weight in K.26 kg Serum Creatinine - Last 168 Hours 07/15/24 15:57 Creatinine 2.25 H Estimated CrCl and GFR - Last 168 Hours 07/15/24 15:57 Estim Creat Clear Calc 34.1 Estimated GFR 31 Vancomycin Loading Dose: 1750 mg Current Vancomycin Dosing Regimen: 750 mg q25h Vancomycin Monitoring using AUC goal of 400 - 600 range with trough as surrogate marker: 472, predicted trough 15.6 Date and Time for next Vancomycin Level to be drawn: 07/18 @1800 Pharmacist Comments on Vancomycin Plan: Pt has poor renal function, however pharmacy checks SCr levels daily and can adjust dose if there is further decline in renal function. Vancomycin dosing will take advantage of [employer] as a clinical decision support tool that uses Bayesian modeling to calculate individual patient's pharmacokinetic parameters and forecast the patient's drug concentration time course with the target goal AUC 24 range of 400 - 600 mg/L/hr.
[2024-07-15 21:19] LABS: Glucose, Whole Blood 270 mg/dL (60-115)
--- NOTE | 2024-07-15 21:19 | PC.NURSE ---
RT with pt Pt rec tx. Plan of care ongoing.
[2024-07-15] MEDS: Furosemide 100 MG/10 ML VIAL 80 MG IVPUSH (21:30)
[2024-07-15] MEDS: Insulin Lispro 100 UNIT/ML 3 ML VIAL SUBCUT (21:33)
[2024-07-15] MEDS: traZODone HCL 100 MG TABLET PO (21:34)
[2024-07-15] MEDS: hydrALAZINE HCl 50 MG TABLET 100 MG PO (21:34)
[2024-07-15] MEDS: Sucralfate 1 GM TABLET PO (21:34)
--- NOTE | 2024-07-15 21:37 | PC.NURSE ---
Pt medicated per mar Tolerated well Pt on 15L oxy mask pt out put 250cc Hospitalist notified and aware Plan of care ongoing
--- NOTE | 2024-07-15 21:42 | PC.NURSE ---
Pt ambulated in room to use urinal Plan of care ongoing.
--- NOTE | 2024-07-15 22:24 | PC.NURSE ---
Hospitalist requested an 02 titration Pt titrated to 10L oxy mask remains @ 98% Plan of care ongoing.
[2024-07-16] VITALS (9 sets, daily range): BP systolic 114–135; BP diastolic 56–66; PULSE 78–82; RESP 16–24; TEMP 36–36.5; O2SAT 92–100; BMI 24.9
[2024-07-16] MEDS: 0.9 % Sodium Chloride Flush 3 ML SYRINGE IVFLUSH ×3 (00:46→20:41)
[2024-07-16] MEDS: Piperacillin Sodium/Tazobactam 4.5 GM in 0.9 % Sodium Chloride 100 ML IV (01:26)
[2024-07-16] MEDS: Flu Vacc TS2024-25(6mos up)/PF 0.5 ML SYRINGE IM (01:27)
[2024-07-16] MEDS: Acetaminophen 325 MG TABLET 650 MG PO (01:34)
[2024-07-16] MEDS: Melatonin 3 MG TABLET 6 MG PO ×2 (01:34→20:45)
[2024-07-16] MEDS: Omeprazole 40 MG CAPSULE.DR PO (05:36)
[2024-07-16 07:00] LABS: Basophils Percent Auto 0.1 % (0-2); Eosinophils Percent Auto 0.1 % (0-4); Hemoglobin 8.2 g/dl (14.0-18.0); Imm Gran Abs Auto 0.08 X10*3/uL (0.00-0.03); Imm Gran Pct Auto 0.6 % (0.0-0.4); Lymphocytes Absolute Auto 0.4 X10*3/uL (1.2-4.9); Lymphocytes Percent Auto 3.3 % (20-40); MANUAL DIFF FLAG SCAN; Mean Corpuscular HGB Conc 30.4 g/dl (31.0-36.0); Mean Corpuscular Hemoglobin 23.1 pg (27.0-33.0); Mean Corpuscular Volume 76.1 fL (80.0-98.0); Mean Platelet Volume 10.3 fL (9.4-12.4); Monocytes Percent Auto 0.2 % (2-11); Neutrophils Absolute Auto 12.3 x10*3/uL (2.0-8.3); Neutrophils Percent Auto 95.7 % (45-73); Platelet Count 381 X10*3/uL (160-400); Red Blood Count 3.55 X10*6/uL (4.60-5.80); Red Cell Distribution Width 17.7 % (11.0-16.0); SCAN SMEAR FLAG 1; White Blood Count 12.9 X10*3/uL (4.8-10.8)
[2024-07-16 07:22] LABS: B Type Natriuretic Peptide 561 pg/mL (<100)
[2024-07-16 07:28] LABS: Anion Gap 16 (12-20); Blood Urea Nitrogen 42 mg/dL (9-16); Calcium 8.7 mg/dL (8.4-10.2); Carbon Dioxide 20 mmol/L (22-29); Chloride 108 mmol/L (96-108); Estimated Glomerular Filt Rate 29; Glucose Random 464 mg/dL (60-115); Potassium 5.5 mmol/L (3.3-5.1); Sodium 138 mmol/L (135-145)
[2024-07-16 07:41] LABS: SLIDE REVIEW VERIFIED
[2024-07-16 07:45] LABS: Glucose, Whole Blood 434 mg/dL (60-115)
[2024-07-16] MEDS: Escitalopram Oxalate 10 MG TABLET PO (08:11)
[2024-07-16] MEDS: Ascorbic Acid 250 MG TABLET PO (08:11)
[2024-07-16] MEDS: Magnesium Oxide 400 MG TABLET PO ×2 (08:11→18:15)
[2024-07-16] MEDS: Ferrous Sulfate 324 MG TABLET.DR PO (08:11)
[2024-07-16] MEDS: Sucralfate 1 GM TABLET PO ×4 (08:11→20:40)
[2024-07-16] MEDS: Aspirin Enteric Coated 81 MG TABLET.DR PO (08:11)
[2024-07-16] MEDS: amLODIPine Besylate 10 MG TABLET PO (08:11)
[2024-07-16] MEDS: Thiamine HCL 100 MG TABLET PO (08:11)
[2024-07-16] MEDS: hydrALAZINE HCl 50 MG TABLET 100 MG PO ×3 (08:11→20:39)
[2024-07-16] MEDS: Folic Acid 1 MG TABLET PO (08:11)
[2024-07-16] MEDS: Isosorbide Mononitrate 30 MG TAB.ER.24H PO (08:12)
[2024-07-16] MEDS: Insulin Glargine,Hum.rec.anlog 100 UNIT/ML 10 ML VIAL 20 UNIT SUBCUT (08:12)
[2024-07-16] MEDS: Insulin Lispro 100 UNIT/ML 3 ML VIAL SUBCUT ×8 (08:12→22:48)
[2024-07-16] MEDS: Nicotine 21 MG PATCH.TD24 TRANSDERMA (08:13)
[2024-07-16] MEDS: Fluticasone/Vilanterol 100/25 BLST.W.DEV 1 PUFF INHALE (08:39)
[2024-07-16] MEDS: Albuterol/Iprat 2.5/0.5MG 3 ML AMPUL.NEB INHALE ×3 (08:39→20:56)
[2024-07-16] MEDS: Furosemide 200 MG in 0.9 % Sodium Chloride 80 ML IVCONT (09:17)
--- NOTE | 2024-07-16 10:23 | HO.PM.IMPN ---
Subjective Subjective Date of Service: 07/16/24 Interval History: sob Physical Exam Vital Signs: Vital Signs: Last Vital Signs Temp 97.6 F 07/16/24 07:28 Pulse 78 07/16/24 08:39 Resp 18 07/16/24 08:39 BP 114/61 07/16/24 07:28 Pulse Ox 97 07/16/24 07:28 O2 Del Method Oxymask 07/16/24 07:28 O2 Flow Rate 3 07/16/24 07:28 BMI result Body Mass Index 24.9 General: AO X 3, no acute distress Resp: Crackles bilateral, no accessory muscles used CVS: S1,S2,RRR, edema GI: soft, non tender, non distended Neuro: motor grossly intact, alert Psych: appropriate affect, appropriate insight Objective Data Active Medications Acetaminophen (Acetaminophen 325 Mg Tablet) 650 mg PO Q6H PRN PRN Reason: Pain, Mild (Pain Scale 1-3), fever or headache Last Admin: 07/16/24 01:34 Dose: 650 mg Documented By: SARAH Albuterol Sulfate (Albuterol Sulfate 90 Mcg 8 Gm Inhaler) 2 puff INHALE Q4H PRN PRN Reason: bronchospasm Albuterol/Ipratropium (Albuterol/Iprat 2.5/0.5mg 3 Ml Ampul.Neb) 3 ml INHALE RQ4H WHILE AWAKE [facility] Last Admin: 07/16/24 08:39 Dose: 3 ml Documented By: SUZANNE Amlodipine Besylate (Amlodipine Besylate 10 Mg Tablet) 10 mg PO DAILY [facility]; Protocol Last Admin: 07/16/24 08:11 Dose: 10 mg Documented By: TANNER Ascorbic Acid (Ascorbic Acid 250 Mg Tablet) 250 mg PO DAILY [facility] Last Admin: 07/16/24 08:11 Dose: 250 mg Documented By: TANNER Aspirin (Aspirin Enteric Coated 81 Mg Tablet.Dr) 81 mg PO DAILY [facility] Last Admin: 07/16/24 08:11 Dose: 81 mg Documented By: TANNER Calcium Carbonate (Calcium Carbonate 750 Mg Tab.Chew) 750 mg PO Q4H PRN PRN Reason: Heartburn Enoxaparin Sodium (Enoxaparin Sodium 40 Mg/0.4 Ml Syringe) 40 mg SUBCUT Q24H [facility] Last Admin: 07/15/24 20:22 Dose: 40 mg Documented By: MISTI Escitalopram Oxalate (Escitalopram Oxalate 10 Mg Tablet) 10 mg PO DAILY [facility] Last Admin: 07/16/24 08:11 Dose: 10 mg Documented By: TANNER Ferrous Sulfate (Ferrous Sulfate 324 Mg Tablet.Dr) 324 mg PO DAILY [facility] Last Admin: 07/16/24 08:11 Dose: 324 mg Documented By: TANNER Fluticasone/Vilanterol (Fluticasone/Vilanterol 100/25 Blst.W.Dev) 1 puff INHALE RDAILY [facility] Last Admin: 07/16/24 08:39 Dose: 1 puff Documented By: SUZANNE Folic Acid (Folic Acid 1 Mg Tablet) 1 mg PO DAILY [facility] Last Admin: 07/16/24 08:11 Dose: 1 mg Documented By: TANNER Glucose (Glucose Gel 15 Gm Gel..Gram.) 15 gm PO Q15M PRN; Protocol PRN Reason: per Hypoglycemia Standing Ord. Guaifenesin (Guaifenesin 200 Mg/10 Ml 10 Ml Liquid) 10 ml PO Q4H PRN PRN Reason: Cough Hydralazine HCl (Hydralazine Hcl 50 Mg Tablet) 100 mg PO TID [facility]; Protocol Last Admin: 07/16/24 08:11 Dose: 100 mg Documented By: TANNER Dextrose (D10) 250 mls @ 750 mls/hr IV Q15M PRN; Protocol PRN Reason: per Hypoglycemia Standing Ord. Furosemide 200 mg/ Sodium (Chloride) 100 mls @ 2.5 mls/hr IVCONT .Q24H [facility] Last Admin: 07/16/24 09:17 Dose: 5 mg/hr, 2.5 mls/hr Documented By: TANNER Insulin Glargine (Insulin Glargine,Hum.Rec.Anlog 100 Unit/Ml 10 Ml Vial) 20 unit SUBCUT DAILY [facility] Last Admin: 07/16/24 08:12 Dose: 20 unit Documented By: TANNER Insulin Human Lispro (Insulin Lispro 100 Unit/Ml 3 Ml Vial) 0 unit SUBCUT QIDACHS [facility]; Protocol Last Admin: 07/16/24 08:12 Dose: 10 unit Documented By: TANNER Insulin Human Lispro (Insulin Lispro 100 Unit/Ml 3 Ml Vial) 5 unit SUBCUT QIDACHS [facility] Last Admin: 07/16/24 08:12 Dose: 5 unit Documented By: TANNER Isosorbide Mononitrate (Isosorbide Mononitrate 30 Mg Tab.Er.24h) 30 mg PO DAILY [facility]; Protocol Last Admin: 07/16/24 08:12 Dose: 30 mg Documented By: TANNER Magnesium Hydroxide (Milk Of Magnesia 30 Ml Oral.Susp) 30 ml PO DAILY PRN PRN Reason: Constipation Magnesium Oxide (Magnesium Oxide 400 Mg Tablet) 400 mg PO BIDPC [facility] Last Admin: 07/16/24 08:11 Dose: 400 mg Documented By: TANNER Melatonin (Melatonin 3 Mg Tablet) 6 mg PO BEDTIME PRN PRN Reason: Insomnia Last Admin: 07/16/24 01:34 Dose: 6 mg Documented By: SARAH Nicotine (Nicotine 21 Mg Patch.Td24) 21 mg TRANSDERMA DAILY [facility] Last Admin: 07/16/24 08:13 Dose: 21 mg Documented By: TANNER Omeprazole (Omeprazole 40 Mg Capsule.Dr) 40 mg PO DAILY@0630 [facility] Last Admin: 07/16/24 05:36 Dose: 40 mg Documented By: SARAH Sodium Chloride (0.9 % Sodium Chloride Flush 3 Ml Syringe) [facility] Last Admin: 07/16/24 08:13 Dose: 3 ml Documented By: TANNER Sucralfate (Sucralfate 1 Gm Tablet) 1 gm PO QIDACHS [facility] Last Admin: 07/16/24 08:11 Dose: 1 gm Documented By: TANNER Thiamine HCl (Thiamine Hcl 100 Mg Tablet) 100 mg PO DAILY [facility] Last Admin: 07/16/24 08:11 Dose: 100 mg Documented By: TANNER Trazodone HCl (Trazodone Hcl 100 Mg Tablet) 100 mg PO BEDTIME [facility] Last Admin: 07/15/24 21:34 Dose: 100 mg Documented By: MISTI Labs 07/16/24 06:22 07/16/24 06:22 Labs: Laboratory Results - last 24 hr 07/15/24 07/15/24 07/15/24 15:57 17:11 17:56 MCV 75.5 L MCH 23.1 L MCHC 30.5 L RDW 17.9 H Plt Count 431 H MPV 10.2 Immature Gran % (Auto) 0.5 H Neut % (Auto) 83.9 H Lymph % (Auto) 7.3 L [place] % (Auto) 6.8 Eos % (Auto) 1.3 Baso % (Auto) 0.2 Lymph # (Auto) 1.2 [place] # (Auto) 1.2 Eos # (Auto) 0.2 Baso # (Auto) 0.0 Abs Immat Gran (auto) 0.09 H Absolute Neuts (auto) 14.2 H Absolute Nucleated RBC 0.000 Nucleated RBC % (auto) 0.0 Smear Tech's Comments VBG pH VBG pCO2 VBG pO2 VBG HCO3 VBG O2 Saturation VBG Base Excess Anion Gap 13 Estim Creat Clear Calc 34.1 Estimated GFR 31 POC Glucose 366 H* Random Glucose 409 H* Lactic Acid 1.1 Calcium 8.6 Magnesium 2.2 Total Bilirubin 0.3 AST 8 ALT 9 Alkaline Phosphatase 97 Troponin I High Sens < 2.7 D B-Natriuretic Peptide 525 H Total Protein 6.7 Albumin 3.6 Influenza Type A (PCR) NEGATIVE Influenza Type B (PCR) NEGATIVE RSV RNA Qual (PCR) NEGATIVE SARS-CoV-2 RNA (RT-PCR) NEGATIVE 07/15/24 07/15/24 07/15/24 19:13 19:23 21:14 MCV MCH MCHC RDW Plt Count MPV Immature Gran % (Auto) Neut % (Auto) Lymph % (Auto) [place] % (Auto) Eos % (Auto) Baso % (Auto) Lymph # (Auto) [place] # (Auto) Eos # (Auto) Baso # (Auto) Abs Immat Gran (auto) Absolute Neuts (auto) Absolute Nucleated RBC Nucleated RBC % (auto) Smear Tech's Comments VBG pH 7.42 VBG pCO2 31 VBG pO2 130 VBG HCO3 20 L VBG O2 Saturation 99.0 VBG Base Excess -2.9 Anion Gap Estim Creat Clear Calc Estimated GFR POC Glucose 262 H 270 H Random Glucose Lactic Acid Calcium Magnesium Total Bilirubin AST ALT Alkaline Phosphatase Troponin I High Sens B-Natriuretic Peptide Total Protein Albumin Influenza Type A (PCR) Influenza Type B (PCR) RSV RNA Qual (PCR) SARS-CoV-2 RNA (RT-PCR) 09/17/24 09/17/24 06:22 07:41 MCV 76.1 L MCH 23.1 L MCHC 30.4 L RDW 17.7 H Plt Count 381 MPV 10.3 Immature Gran % (Auto) 0.6 H Neut % (Auto) 95.7 H Lymph % (Auto) 3.3 L [place] % (Auto) 0.2 L Eos % (Auto) 0.1 Baso % (Auto) 0.1 Lymph # (Auto) 0.4 L [place] # (Auto) 0.0 L Eos # (Auto) 0.0 Baso # (Auto) 0.0 Abs Immat Gran (auto) 0.08 H Absolute Neuts (auto) 12.3 H Absolute Nucleated RBC 0.000 Nucleated RBC % (auto) 0.0 Smear Tech's Comments VERIFIED VBG pH VBG pCO2 VBG pO2 VBG HCO3 VBG O2 Saturation VBG Base Excess Anion Gap 16 Estim Creat Clear Calc 32.0 Estimated GFR 29 POC Glucose 434 H* Random Glucose 464 H* Lactic Acid Calcium 8.7 Magnesium Total Bilirubin AST ALT Alkaline Phosphatase Troponin I High Sens B-Natriuretic Peptide 561 H Total Protein Albumin Influenza Type A (PCR) Influenza Type B (PCR) RSV RNA Qual (PCR) SARS-CoV-2 RNA (RT-PCR) Assessment and Plan (1) Congestive heart failure: Status: Acute Plan 48M PMH DM, htn, mood disorder, copd, hfpef with chronic hypoxic respiratory failure on 2-3L home o2, etoh dependence in remission, presented with sob Acute on chronic hypoxic respiratory failure due to acute on chronic diastolic CHF likely due to poor adherence to dietary restrictions IV Lasix, monitor electrolytes renal function, wean O2 as tolerated Pneumonia less likely will hold off on further antibiotics for now and monitor Acute kidney injury on CKD 3 Likely cardiorenal, monitor with IV diuresis COPD Stable continue maintenance inhalers Diabetes with hyperglycemia Basal bolus insulin, monitor Hypertension Hydralazine, amlodipine, metoprolol, Imdur Alcohol dependence In remission DVT prophylaxis-Lovenox Full Code reason for continued hospitalization: Ongoing IV diuresis, still hypoxic about baseline Quality Stroke Does the patient have a stroke diagnosis?: No VTE Prior VTE?: No VTE Risk Level:: Medical - moderate - high VTE Device Contraindication: Treatment Not Indicated VTE Drug Contraindication: N/A - Med Ordered
[2024-07-16 11:00] LABS: Glucose, Whole Blood 426 mg/dL (60-115)
[2024-07-16 11:59] LABS: Adenovirus PCR Not Detected (Not Detect.); Bordetella parapertussis PCR Not Detected (Not Detect.); Bordetella pertussis PCR Not Detected (Not Detect.); Chlamydia pneumoniae PCR Not Detected (Not Detect.); Coronavirus 229E PCR Not Detected (Not Detect.); Coronavirus HKU1 PCR Not Detected (Not Detect.); Coronavirus NL63 PCR Not Detected (Not Detect.); Coronavirus OC43 PCR Not Detected (Not Detect.); Human metapneumovirus PCR Not Detected (Not Detect.); Influenza A PCR Not Detected (Not Detect.); Influenza B PCR Not Detected (Not Detect.); Mycoplasma pneumoniae PCR Not Detected (Not Detect.); Parainfluenza 1 PCR Not Detected (Not Detect.); Parainfluenza 2 PCR Not Detected (Not Detect.); Parainfluenza 3 PCR Not Detected (Not Detect.); Parainfluenza 4 PCR Not Detected (Not Detect.); RSV PCR Not Detected (Not Detect.); Rhino/Enterovirus PCR Not Detected (Not Detect.)
--- NOTE | 2024-07-16 12:34 | P.CDIM_ITS ---
PROVIDER RESPONSE TEXT: To clarify, the appropriate diagnosis supported by the clinical indicators: Hyperkalemia: acute QUERY TEXT: PHYSICIAN'S DOCUMENTATION REQUEST Date of Query: 07/16/2024 12:24 PM EDT Patient Name: Ciara Quiroga Admit Date: 07/16/2024 Dear Garret Cifuentes MD, A review of the medical record indicates additional documentation may be needed. Please review below and update the documentation accordingly. Clinical Indicators: LABS - potassium 5.5 H Based on the above, is there a diagnosis that correlates with these lab findings: Hyperkalemia possible, probable, suspected Labs indicate a diagnosis of (please specify) Other (explain) Clinically unable to determine (explain) Thank you, Vale Vergara, CCS, CDIS Use of terms such as suspected, likely, concern for, or probable (associated with a specific diagnosi s that is being evaluated, monitored, or treated as if it exists) are acceptable and can be coded in the inpatient se tting, when documented at the time of discharge. Please use your independent medical judgment in providing your response. THIS QUERY IS PART OF THE PERMANENT MEDICAL RECORD
[2024-07-16 12:49] LABS: SARS-CoV-2 PCR Not Detected (Not Detect.)
[2024-07-16 14:53] LABS: Glucose, Whole Blood 451 mg/dL (60-115)
[2024-07-16] MEDS: Insulin Lispro 100 UNIT/ML 3 ML VIAL 15 UNIT SUBCUT (15:14)
[2024-07-16 16:35] LABS: Glucose, Whole Blood 378 mg/dL (60-115)
[2024-07-16] MEDS: Enoxaparin Sodium 40 MG/0.4 ML SYRINGE SUBCUT (20:39)
[2024-07-16] MEDS: traZODone HCL 100 MG TABLET PO (20:40)
[2024-07-16 20:54] LABS: Glucose, Whole Blood 192 mg/dL (60-115)
[2024-07-16 22:47] LABS: Glucose, Whole Blood 198 mg/dL (60-115)
[2024-07-17] VITALS (9 sets, daily range): BP systolic 117–145; BP diastolic 59–74; PULSE 65–89; RESP 16–20; TEMP 36–37.5; O2SAT 91–98; BMI 25.0
[2024-07-17] MEDS: Omeprazole 40 MG CAPSULE.DR PO (06:50)
[2024-07-17 06:58] LABS: Hematocrit 25.4 % (42.0-52.0); Hemoglobin 7.9 g/dl (14.0-18.0); Mean Corpuscular HGB Conc 31.1 g/dl (31.0-36.0); Mean Corpuscular Hemoglobin 23.1 pg (27.0-33.0); Mean Corpuscular Volume 74.3 fL (80.0-98.0); Mean Platelet Volume 10.7 fL (9.4-12.4); Platelet Count 417 X10*3/uL (160-400); Red Blood Count 3.42 X10*6/uL (4.60-5.80); White Blood Count 16.3 X10*3/uL (4.8-10.8)
[2024-07-17] MEDS: Fluticasone/Vilanterol 100/25 BLST.W.DEV 1 PUFF INHALE (07:17)
[2024-07-17] MEDS: Albuterol/Iprat 2.5/0.5MG 3 ML AMPUL.NEB INHALE (07:19)
[2024-07-17 07:22] LABS: Anion Gap 16 (12-20); Blood Urea Nitrogen 46 mg/dL (9-16); Calcium 9.3 mg/dL (8.4-10.2); Carbon Dioxide 25 mmol/L (22-29); Chloride 106 mmol/L (96-108); Creatinine Clr Calc Pharmacy 41.7; Estimated Glomerular Filt Rate 39; Glucose Fasting 217 mg/dL (60-99); Magnesium 2.2 mg/dL (1.6-2.6); Potassium 4.6 mmol/L (3.3-5.1); Sodium 142 mmol/L (135-145)
[2024-07-17 08:05] LABS: Glucose, Whole Blood 233 mg/dL (60-115)
[2024-07-17] MEDS: Furosemide 200 MG in 0.9 % Sodium Chloride 80 ML IVCONT (09:00)
[2024-07-17] MEDS: Isosorbide Mononitrate 30 MG TAB.ER.24H PO (09:00)
--- NOTE | 2024-07-17 09:00 | MHC.CM.PN ---
LATE ENTRY NOTE FOR 07/16/24, EMR REVIED, PT W/CHF EXAC/PNA, CM MET W/PT WHO REPORTS HE LIVES W/HIS BROTHER, DIL AND 2GKIDS, PT HAS A CANE INSULIN PUMP/MONITOR (FREESTYLE TOMAS 2/OMNIPRO) PT REPORTS HE IS INDEP W/OWN CARE, NO HOME SERVICES. PT ASKING CM TO CONTACT HIS [facility] THERAPIST JIA TATIANNA [phone] REGARDING A PROGRAM FOR PT HE DOES NOT WANT TO RETURN TO BROTHERS HOME AND C/O NOT BEING ABLE TO QUIT SMOKING BECAUSE EVERYONE SMOKES THERE, CM CONTACTED CARRIE AND SHE REPORTS SHE CAN START THE PROCESS TO GET PT INTO THE [facility] RESPITE PROGRAM WHICH IS A 6MOS PROGRAM AND THEY ASSIST W/PSYCH/MEDICAL/HOUSING PT HAS TO CALL HER HIMSELF AND PT HAS TO BE AWARE OF FOLLOWING: PT NEEDS TO BE FULLY INDEPENDENT, CAN NOT LEAVE WHENEVER HE LIKES, ONLY FOR APPT'S, FUNERALS AND PT HAS TO GO TO PROGRAM DIRECTLY FROM HOSPITAL. CM MET W/PT TO DISCUSS AND GAVE PT INFORMATION IN WRITING, PT AWARE HE WILL NEED TO CALL JIA WHEN HE DECIDES IF HE WANTS TO FOLLOW THROUGH WITH PROGRAM. PT ALSO HAS AN ADVOCATE THROUGH [facility] [phone]. PT VERIFIES PCP/HCP ON FILE CORRECT.
[2024-07-17] MEDS: Aspirin Enteric Coated 81 MG TABLET.DR PO (09:01)
[2024-07-17] MEDS: Sucralfate 1 GM TABLET PO ×4 (09:01→21:33)
[2024-07-17] MEDS: Escitalopram Oxalate 10 MG TABLET PO (09:01)
[2024-07-17] MEDS: Ascorbic Acid 250 MG TABLET PO (09:01)
[2024-07-17] MEDS: Thiamine HCL 100 MG TABLET PO (09:01)
[2024-07-17] MEDS: amLODIPine Besylate 10 MG TABLET PO (09:01)
[2024-07-17] MEDS: hydrALAZINE HCl 50 MG TABLET 100 MG PO ×3 (09:01→21:33)
[2024-07-17] MEDS: Folic Acid 1 MG TABLET PO (09:01)
[2024-07-17] MEDS: Nicotine 21 MG PATCH.TD24 TRANSDERMA (09:02)
[2024-07-17] MEDS: Ferrous Sulfate 324 MG TABLET.DR PO (09:02)
[2024-07-17] MEDS: Magnesium Oxide 400 MG TABLET PO ×2 (09:02→16:30)
[2024-07-17] MEDS: 0.9 % Sodium Chloride Flush 3 ML SYRINGE IVFLUSH ×3 (09:02→21:38)
[2024-07-17] MEDS: Insulin Glargine,Hum.rec.anlog 100 UNIT/ML 10 ML VIAL 20 UNIT SUBCUT (09:03)
[2024-07-17 12:05] LABS: Glucose, Whole Blood 246 mg/dL (60-115)
[2024-07-17] MEDS: metOLazone 2.5 MG TABLET PO (13:37)
[2024-07-17] MEDS: Acetaminophen 325 MG TABLET 650 MG PO (13:42)
[2024-07-17] MEDS: Fluticasone Propionate Nasal 16 GM SPRAY 1 SPRAY NOSTRIL-B ×2 (13:42→21:32)
--- NOTE | 2024-07-17 13:46 | P.PNIM_ITS ---
Subjective Subjective Date of Service: 07/17/24 Interval History: seen and evaluated feels congested to his nose breathing better decrease O2 supplement to 2L Review of Systems Review of Systems: Yes all other systems are reviewed and are negative Physical Exam 2 Vital Signs: Vital Signs: Last Vital Signs Temp 99.5 F 07/17/24 12:00 Pulse 89 07/17/24 12:00 Resp 20 07/17/24 12:00 BP 128/70 07/17/24 12:00 Pulse Ox 95 07/17/24 12:00 O2 Del Method Nasal Cannula 07/17/24 12:00 O2 Flow Rate 2 07/17/24 12:00 BMI result Body Mass Index 25.0 Const: Other: Constitutional : Awake, interactive, not in distress Neck : Normal inspection, Supple Cardiovascular : RRR, no JVP, trace bilateral lower extremity edema Respiratory : good bilateral air entry, basal fine crackles Gastrointestinal: soft, lax, Normal bowel sounds, Non tender Skin : Warm, Dry Neurological : Alert & oriented x3, No focal deficit Objective Data Active Medications Acetaminophen (Acetaminophen 325 Mg Tablet) 650 mg PO Q6H PRN PRN Reason: Pain, Mild (Pain Scale 1-3), fever or headache Last Admin: 07/16/24 01:34 Dose: 650 mg Documented By: SARAH Albuterol Sulfate (Albuterol Sulfate 90 Mcg 8 Gm Inhaler) 2 puff INHALE Q4H PRN PRN Reason: bronchospasm Albuterol/Ipratropium (Albuterol/Iprat 2.5/0.5mg 3 Ml Ampul.Neb) 3 ml INHALE RQ4H WHILE AWAKE [facility] Last Admin: 07/17/24 11:40 Dose: Not Given Documented By: AMADO Non-Admin Reason: Patient Asleep Amlodipine Besylate (Amlodipine Besylate 10 Mg Tablet) 10 mg PO DAILY [facility]; Protocol Last Admin: 07/17/24 09:01 Dose: 10 mg Documented By: HEENA Ascorbic Acid (Ascorbic Acid 250 Mg Tablet) 250 mg PO DAILY [facility] Last Admin: 07/17/24 09:01 Dose: 250 mg Documented By: HEENA Aspirin (Aspirin Enteric Coated 81 Mg Tablet.) 81 mg PO DAILY [facility] Last Admin: 07/17/24 09:01 Dose: 81 mg Documented By: HEENA Calcium Carbonate (Calcium Carbonate 750 Mg Tab.Chew) 750 mg PO Q4H PRN PRN Reason: Heartburn Enoxaparin Sodium (Enoxaparin Sodium 40 Mg/0.4 Ml Syringe) 40 mg SUBCUT Q24H [facility] Last Admin: 07/16/24 20:39 Dose: 40 mg Documented By: BEBE Escitalopram Oxalate (Escitalopram Oxalate 10 Mg Tablet) 10 mg PO DAILY [facility] Last Admin: 07/17/24 09:01 Dose: 10 mg Documented By: HEENA Ferrous Sulfate (Ferrous Sulfate 324 Mg Tablet.Dr) 324 mg PO DAILY [facility] Last Admin: 07/17/24 09:02 Dose: 324 mg Documented By: HEENA Fluticasone Propionate (Fluticasone Propionate Nasal 16 Gm Buda) 1 spray NOSTRIL-B BID [facility] Fluticasone/Vilanterol (Fluticasone/Vilanterol 100/25 Blst.W.Dev) 1 puff INHALE RDAILY [facility] Last Admin: 07/17/24 07:17 Dose: 1 puff Documented By: AMADO Folic Acid (Folic Acid 1 Mg Tablet) 1 mg PO DAILY [facility] Last Admin: 07/17/24 09:01 Dose: 1 mg Documented By: HEENA Glucose (Glucose Gel 15 Gm Gel..Gram.) 15 gm PO Q15M PRN; Protocol PRN Reason: per Hypoglycemia Standing Ord. Guaifenesin (Guaifenesin 200 Mg/10 Ml 10 Ml Liquid) 10 ml PO Q4H PRN PRN Reason: Cough Hydralazine HCl (Hydralazine Hcl 50 Mg Tablet) 100 mg PO TID [facility]; Protocol Last Admin: 07/17/24 09:01 Dose: 100 mg Documented By: HEENA Dextrose (D10) 250 mls @ 750 mls/hr IV Q15M PRN; Protocol PRN Reason: per Hypoglycemia Standing Ord. Furosemide 200 mg/ Sodium (Chloride) 100 mls @ 2.5 mls/hr IVCONT .Q24H [facility] Last Admin: 07/17/24 09:00 Dose: 5 mg/hr, 2.5 mls/hr Documented By: HEENA Insulin Glargine (Insulin Glargine,Hum.Rec.Anlog 100 Unit/Ml 10 Ml Vial) 20 unit SUBCUT DAILY [facility] Last Admin: 07/17/24 09:03 Dose: 20 unit Documented By: HEENA Insulin Human Lispro (Insulin Lispro 100 Unit/Ml 3 Ml Vial) 0 unit SUBCUT QIDAS [facility]; Protocol Last Admin: 07/17/24 08:58 Dose: Not Given Documented By: HEENA Non-Admin Reason: didnt eat Comments: is not eating due to nausea Insulin Human Lispro (Insulin Lispro 100 Unit/Ml 3 Ml Vial) [facility] Last Admin: 07/17/24 09:00 Dose: Not Given Documented By: HEENA Non-Admin Reason: Nausea Isosorbide Mononitrate (Isosorbide Mononitrate 30 Mg Tab.Er.24h) 30 mg PO DAILY [facility]; Protocol Last Admin: 07/17/24 09:00 Dose: 30 mg Documented By: HEENA Magnesium Hydroxide (Milk Of Magnesia 30 Ml Oral.Susp) 30 ml PO DAILY PRN PRN Reason: Constipation Magnesium Oxide (Magnesium Oxide 400 Mg Tablet) 400 mg PO BIDPC [facility] Last Admin: 07/17/24 09:02 Dose: 400 mg Documented By: HEENA Melatonin (Melatonin 3 Mg Tablet) 6 mg PO BEDTIME PRN PRN Reason: Insomnia Last Admin: 07/16/24 20:45 Dose: 6 mg Documented By: BEBE Nicotine (Nicotine 21 Mg Patch.Td24) 21 mg TRANSDERMA DAILY [facility] Last Admin: 07/17/24 09:02 Dose: 21 mg Documented By: HEENA Omeprazole (Omeprazole 40 Mg Capsule.Dr) 40 mg PO DAILY@0630 [facility] Last Admin: 07/17/24 06:50 Dose: 40 mg Documented By: BEBE Sodium Chloride (0.9 % Sodium Chloride Flush 3 Ml Syringe) 3 ml IVFLUSH QSHIFT [facility] Last Admin: 07/17/24 09:02 Dose: 3 ml Documented By: HEENA Sucralfate (Sucralfate 1 Gm Tablet) 1 gm PO QIDACHS [facility] Last Admin: 07/17/24 09:01 Dose: 1 gm Documented By: HEENA Thiamine HCl (Thiamine Hcl 100 Mg Tablet) 100 mg PO DAILY [facility] Last Admin: 07/17/24 09:01 Dose: 100 mg Documented By: HEENA Trazodone HCl (Trazodone Hcl 100 Mg Tablet) 100 mg PO BEDTIME [facility] Last Admin: 07/16/24 20:40 Dose: 100 mg Documented By: BEBE Labs 07/17/24 06:14 07/17/24 06:14 Labs: Laboratory Results - last 24 hr 07/16/24 07/16/24 07/16/24 14:48 16:30 20:50 MCV MCH MCHC RDW Plt Count MPV Absolute Nucleated RBC Nucleated RBC % (auto) Anion Gap Estim Creat Clear Calc Estimated GFR POC Glucose 451 H* 378 H* 192 H Fasting Glucose Calcium Magnesium 07/16/24 07/17/24 07/17/24 22:42 06:14 07:29 MCV 74.3 L MCH 23.1 L MCHC 31.1 RDW 18.0 H Plt Count 417 H MPV 10.7 Absolute Nucleated RBC 0.000 Nucleated RBC % (auto) 0.0 Anion Gap 16 Estim Creat Clear Calc 41.7 Estimated GFR 39 POC Glucose 198 H 233 H Fasting Glucose 217 H Calcium 9.3 D Magnesium 2.2 07/17/24 11:58 MCV MCH MCHC RDW Plt Count MPV Absolute Nucleated RBC Nucleated RBC % (auto) Anion Gap Estim Creat Clear Calc Estimated GFR POC Glucose 246 H Fasting Glucose Calcium Magnesium Microbiology Microbiology Results: Microbiology 07/15/24 17:56 Blood Culture - Final Blood - Venous Coag negative Staphylococcus 07/15/24 17:56 Blood Culture - Preliminary Blood - Venous No growth after 24 hours. Assessment and Plan (1) Acute hyperglycemia: Status: Acute (2) Congestive heart failure: Status: Acute (3) Acute renal insufficiency: Status: Acute Plan 48M PMH DM, htn, mood disorder, copd, hfpef with chronic hypoxic respiratory failure on 2-3L home o2, etoh dependence in remission, presented with sob Acute on chronic hypoxic respiratory failure due to acute on chronic diastolic CHF likely due to poor adherence to dietary restrictions DC IV Lasix drip, start Lasix 40 mg bid monitor electrolytes renal function, wean O2 as tolerated hold off on further antibiotics and monitor Acute kidney injury on CKD 3 Likely cardiorenal, Cr improved monitor BMP with IV diuresis Congestion post Flu vaccine Flonase bid COPD Stable continue maintenance inhalers Diabetes with hyperglycemia Basal bolus insulin, monitor Hypertension Hydralazine, amlodipine, metoprolol, Imdur Alcohol dependence In remission DVT prophylaxis-Lovenox Full Code reason for continued hospitalization: Ongoing IV diuresis, still hypoxic about baseline Quality Stroke Does the patient have a stroke diagnosis?: No VTE Prior VTE?: No VTE Risk Level:: Medical - moderate - high VTE Device Contraindication: Treatment Not Indicated VTE Drug Contraindication: N/A - Med Ordered
[2024-07-17 16:00] LABS: Glucose, Whole Blood 191 mg/dL (60-115)
[2024-07-17 16:44] LABS: Influenza A PCR NEGATIVE (Negative); Influenza B PCR NEGATIVE (Negative); Resp Syncy Virus RNA Qual PCR NEGATIVE (Negative); SARS COV2 PCR INHOUSE NEGATIVE (Negative)
[2024-07-17] MEDS: Furosemide 40 MG/4 ML VIAL IVPUSH (18:48)
[2024-07-17 20:25] LABS: Glucose, Whole Blood 147 mg/dL (60-115)
[2024-07-17] MEDS: Melatonin 3 MG TABLET 6 MG PO (21:32)
[2024-07-17] MEDS: traZODone HCL 100 MG TABLET PO (21:33)
[2024-07-17] MEDS: Enoxaparin Sodium 40 MG/0.4 ML SYRINGE SUBCUT (21:33)
[2024-07-18] VITALS (10 sets, daily range): BP systolic 127–150; BP diastolic 62–73; PULSE 71–96; RESP 16–20; TEMP 36.3–36.9; O2SAT 91–100; BMI 23.1
[2024-07-18 06:04] LABS: Hematocrit 28.2 % (42.0-52.0); Hemoglobin 8.8 g/dl (14.0-18.0); Mean Corpuscular HGB Conc 31.2 g/dl (31.0-36.0); Mean Corpuscular Volume 73.8 fL (80.0-98.0); Mean Platelet Volume 9.8 fL (9.4-12.4); Platelet Count 460 X10*3/uL (160-400); Red Blood Count 3.82 X10*6/uL (4.60-5.80); Red Cell Distribution Width 17.9 % (11.0-16.0); White Blood Count 9.8 X10*3/uL (4.8-10.8)
[2024-07-18 06:18] LABS: Anion Gap 13 (12-20); Blood Urea Nitrogen 36 mg/dL (9-16); Calcium 9.6 mg/dL (8.4-10.2); Carbon Dioxide 29 mmol/L (22-29); Chloride 106 mmol/L (96-108); Creatinine Clr Calc Pharmacy 53.7; Estimated Glomerular Filt Rate 52; Glucose Random 113 mg/dL (60-115); Potassium 3.9 mmol/L (3.3-5.1); Sodium 144 mmol/L (135-145)
[2024-07-18 06:22] LABS: B Type Natriuretic Peptide 270 pg/mL (<100)
[2024-07-18] MEDS: Omeprazole 40 MG CAPSULE.DR PO (06:46)
[2024-07-18 06:55] LABS: Glucose, Whole Blood 107 mg/dL (60-115)
[2024-07-18] MEDS: Albuterol/Iprat 2.5/0.5MG 3 ML AMPUL.NEB INHALE ×3 (07:43→15:28)
[2024-07-18] MEDS: Fluticasone/Vilanterol 100/25 BLST.W.DEV 1 PUFF INHALE (07:43)
[2024-07-18] MEDS: Insulin Glargine,Hum.rec.anlog 100 UNIT/ML 10 ML VIAL 20 UNIT SUBCUT (08:03)
[2024-07-18] MEDS: Ferrous Sulfate 324 MG TABLET.DR PO (08:04)
[2024-07-18] MEDS: hydrALAZINE HCl 50 MG TABLET 100 MG PO ×3 (08:04→21:16)
[2024-07-18] MEDS: Thiamine HCL 100 MG TABLET PO (08:04)
[2024-07-18] MEDS: Isosorbide Mononitrate 30 MG TAB.ER.24H PO (08:04)
[2024-07-18] MEDS: Ascorbic Acid 250 MG TABLET PO (08:04)
[2024-07-18] MEDS: Aspirin Enteric Coated 81 MG TABLET.DR PO (08:04)
[2024-07-18] MEDS: Magnesium Oxide 400 MG TABLET PO ×2 (08:04→16:54)
[2024-07-18] MEDS: Folic Acid 1 MG TABLET PO (08:04)
[2024-07-18] MEDS: amLODIPine Besylate 10 MG TABLET PO (08:04)
[2024-07-18] MEDS: Sucralfate 1 GM TABLET PO ×4 (08:04→21:16)
[2024-07-18] MEDS: Escitalopram Oxalate 10 MG TABLET PO (08:04)
[2024-07-18] MEDS: Furosemide 40 MG/4 ML VIAL IVPUSH ×2 (08:05→16:53)
[2024-07-18] MEDS: 0.9 % Sodium Chloride Flush 3 ML SYRINGE IVFLUSH ×3 (08:05→21:20)
[2024-07-18] MEDS: Nicotine 21 MG PATCH.TD24 TRANSDERMA (08:05)
[2024-07-18] MEDS: Fluticasone Propionate Nasal 16 GM SPRAY 1 SPRAY NOSTRIL-B ×2 (08:15→21:17)
[2024-07-18 10:57] LABS: Glucose, Whole Blood 169 mg/dL (60-115)
--- NOTE | 2024-07-18 12:13 | HO.PM.IMPN ---
Subjective Subjective Date of Service: 07/18/24 Interval History: seen and evaluated feels congested to his nose and chest breathing better overall decrease O2 supplement to 2L Review of Systems Review of Systems: Yes all other systems are reviewed and are negative Physical Exam Vital Signs: Vital Signs: Last Vital Signs Temp 97.8 F 07/18/24 11:06 Pulse 71 07/18/24 11:34 Resp 16 07/18/24 11:34 BP 127/66 07/18/24 11:06 Pulse Ox 97 07/18/24 11:06 O2 Del Method Nasal Cannula 07/18/24 11:06 O2 Flow Rate 3 07/18/24 11:06 BMI result Body Mass Index 23.1 Const: Other: Constitutional : Awake, interactive, not in distress Neck : Normal inspection, Supple Cardiovascular : RRR, no JVP, trace bilateral lower extremity edema Respiratory : good bilateral air entry, basal fine crackles Gastrointestinal: soft, lax, Normal bowel sounds, Non tender Skin : Warm, Dry Neurological : Alert & oriented x3, No focal deficit Objective Data Active Medications Acetaminophen (Acetaminophen 325 Mg Tablet) 650 mg PO Q6H PRN PRN Reason: Pain, Mild (Pain Scale 1-3), fever or headache Last Admin: 07/17/24 13:42 Dose: 650 mg Documented By: HEENA Albuterol Sulfate (Albuterol Sulfate 90 Mcg 8 Gm Inhaler) 2 puff INHALE Q4H PRN PRN Reason: bronchospasm Albuterol/Ipratropium (Albuterol/Iprat 2.5/0.5mg 3 Ml Ampul.Neb) 3 ml INHALE RQ4H WHILE AWAKE [facility] Last Admin: 07/18/24 11:32 Dose: 3 ml Documented By: WILBERT Amlodipine Besylate (Amlodipine Besylate 10 Mg Tablet) 10 mg PO DAILY [facility]; Protocol Last Admin: 07/18/24 08:04 Dose: 10 mg Documented By: CALISTA Ascorbic Acid (Ascorbic Acid 250 Mg Tablet) 250 mg PO DAILY [facility] Last Admin: 07/18/24 08:04 Dose: 250 mg Documented By: CALISTA Aspirin (Aspirin Enteric Coated 81 Mg Tablet.Dr) 81 mg PO DAILY [facility] Last Admin: 07/18/24 08:04 Dose: 81 mg Documented By: CALISTA Calcium Carbonate (Calcium Carbonate 750 Mg Tab.Chew) 750 mg PO Q4H PRN PRN Reason: Heartburn Enoxaparin Sodium (Enoxaparin Sodium 40 Mg/0.4 Ml Syringe) 40 mg SUBCUT Q24H [facility] Last Admin: 07/17/24 21:33 Dose: 40 mg Documented By: NANCY Escitalopram Oxalate (Escitalopram Oxalate 10 Mg Tablet) 10 mg PO DAILY [facility] Last Admin: 07/18/24 08:04 Dose: 10 mg Documented By: CALISTA Ferrous Sulfate (Ferrous Sulfate 324 Mg Tablet.Dr) 324 mg PO DAILY [facility] Last Admin: 07/18/24 08:04 Dose: 324 mg Documented By: CALISTA Fluticasone Propionate (Fluticasone Propionate Nasal 16 Gm [place]) 1 spray NOSTRIL-B BID [facility] Last Admin: 07/18/24 08:15 Dose: 1 spray Documented By: CALISTA Fluticasone/Vilanterol (Fluticasone/Vilanterol 100/25 Blst.W.Dev) 1 puff INHALE RDAILY [facility] Last Admin: 07/18/24 07:43 Dose: 1 puff Documented By: WILBERT Folic Acid (Folic Acid 1 Mg Tablet) 1 mg PO DAILY [facility] Last Admin: 07/18/24 08:04 Dose: 1 mg Documented By: CALISTA Furosemide (Furosemide 40 Mg/4 Ml Vial) 40 mg IVPUSH BID@0900,1800 [facility]; Protocol Last Admin: 07/18/24 08:05 Dose: 40 mg Documented By: CALISTA Glucose (Glucose Gel 15 Gm Gel..Gram.) 15 gm PO Q15M PRN; Protocol PRN Reason: per Hypoglycemia Standing Ord. Guaifenesin (Guaifenesin 200 Mg/10 Ml 10 Ml Liquid) 10 ml PO Q4H PRN PRN Reason: Cough Hydralazine HCl (Hydralazine Hcl 50 Mg Tablet) 100 mg PO TID [facility]; Protocol Last Admin: 07/18/24 08:04 Dose: 100 mg Documented By: CALISTA Dextrose (D10) 250 mls @ 750 mls/hr IV Q15M PRN; Protocol PRN Reason: per Hypoglycemia Standing Ord. Insulin Glargine (Insulin Glargine,Hum.Rec.Anlog 100 Unit/Ml 10 Ml Vial) 20 unit SUBCUT DAILY [facility] Last Admin: 07/18/24 08:03 Dose: 20 unit Documented By: CALISTA Insulin Human Lispro (Insulin Lispro 100 Unit/Ml 3 Ml Vial) 0 unit SUBCUT QIDACHS [facility]; Protocol Last Admin: 07/18/24 07:49 Dose: Not Given Documented By: CALISTA Non-Admin Reason: No Insulin Coverage Insulin Human Lispro (Insulin Lispro 100 Unit/Ml 3 Ml Vial) 5 unit SUBCUT QIDACHS [facility] Last Admin: 07/18/24 07:49 Dose: Not Given Documented By: CALISTA Non-Admin Reason: No Insulin Coverage Isosorbide Mononitrate (Isosorbide Mononitrate 30 Mg Tab.Er.24h) 30 mg PO DAILY [facility]; Protocol Last Admin: 07/18/24 08:04 Dose: 30 mg Documented By: CALISTA Magnesium Hydroxide (Milk Of Magnesia 30 Ml Oral.Susp) 30 ml PO DAILY PRN PRN Reason: Constipation Magnesium Oxide (Magnesium Oxide 400 Mg Tablet) 400 mg PO BIDPC [facility] Last Admin: 07/18/24 08:04 Dose: 400 mg Documented By: CALISTA Melatonin (Melatonin 3 Mg Tablet) 6 mg PO BEDTIME PRN PRN Reason: Insomnia Last Admin: 07/17/24 21:32 Dose: 6 mg Documented By: NANCY Nicotine (Nicotine 21 Mg Patch.Td24) 21 mg TRANSDERMA DAILY [facility] Last Admin: 07/18/24 08:05 Dose: 21 mg Documented By: CALISTA Omeprazole (Omeprazole 40 Mg Capsule.Dr) 40 mg PO DAILY@0630 [facility] Last Admin: 07/18/24 06:46 Dose: 40 mg Documented By: NANCY Oxymetazoline HCl (Oxymetazoline Hcl 0.05 % Nasal 15 Ml [place]) 2 spray NOSTRIL-B Q12H [facility] Stop: 07/21/24 10:21 Last Admin: 07/18/24 10:45 Dose: Not Given Documented By: CALISTA Non-Admin Reason: Med Not Available Sodium Chloride (0.9 % Sodium Chloride Flush 3 Ml Syringe) 3 ml IVFLUSH QSHIFT [facility] Last Admin: 07/18/24 08:05 Dose: 3 ml Documented By: CALISTA Sucralfate (Sucralfate 1 Gm Tablet) 1 gm PO QIDACHS [facility] Last Admin: 07/18/24 08:04 Dose: 1 gm Documented By: CALISTA Thiamine HCl (Thiamine Hcl 100 Mg Tablet) 100 mg PO DAILY [facility] Last Admin: 07/18/24 08:04 Dose: 100 mg Documented By: CALISTA Trazodone HCl (Trazodone Hcl 100 Mg Tablet) 100 mg PO BEDTIME [facility] Last Admin: 07/17/24 21:33 Dose: 100 mg Documented By: NANCY Labs 07/18/24 05:44 07/18/24 05:44 Labs: Laboratory Results - last 24 hr 07/17/24 07/17/24 07/17/24 15:53 15:55 20:20 MCV MCH MCHC RDW Plt Count MPV Absolute Nucleated RBC Nucleated RBC % (auto) Anion Gap Estim Creat Clear Calc Estimated GFR POC Glucose 191 H 147 H Random Glucose Calcium B-Natriuretic Peptide Influenza Type A (PCR) NEGATIVE Influenza Type B (PCR) NEGATIVE RSV RNA Qual (PCR) NEGATIVE SARS-CoV-2 RNA (RT-PCR) NEGATIVE 07/18/24 07/18/24 07/18/24 05:44 06:51 10:54 MCV 73.8 L MCH 23.0 L MCHC 31.2 RDW 17.9 H Plt Count 460 H MPV 9.8 Absolute Nucleated RBC 0.000 Nucleated RBC % (auto) 0.0 Anion Gap 13 Estim Creat Clear Calc 53.7 Estimated GFR 52 POC Glucose 107 169 H Random Glucose 113 Calcium 9.6 B-Natriuretic Peptide 270 H Influenza Type A (PCR) Influenza Type B (PCR) RSV RNA Qual (PCR) SARS-CoV-2 RNA (RT-PCR) Microbiology Microbiology Results: Microbiology 07/15/24 17:56 Blood Culture - Preliminary Blood - Venous No growth after 48 hours. 07/15/24 17:56 Blood Culture - Final Blood - Venous Coag negative Staphylococcus Assessment and Plan (1) Acute hyperglycemia: Status: Acute (2) Elevated WBC count: Status: Acute (3) Congestive heart failure: Status: Acute (4) Acute renal insufficiency: Status: Acute Plan 48M PMH DM, htn, mood disorder, copd, hfpef with chronic hypoxic respiratory failure on 2-3L home o2, etoh dependence in remission, presented with sob Acute on chronic hypoxic respiratory failure due to acute on chronic diastolic CHF likely due to poor adherence to dietary restrictions improving slowly, still feel dyspneic with exertion DC IV Lasix drip, continue Lasix 40 mg bid monitor electrolytes renal function, wean O2 as tolerated hold off on further antibiotics and monitor Acute kidney injury on CKD 3 Likely cardiorenal, Cr improved to 1.4 monitor BMP with IV diuresis Congestion post Flu vaccine Flonase bid COPD Stable continue maintenance inhalers Diabetes with hyperglycemia Basal bolus insulin, monitor Hypertension Hydralazine, amlodipine, metoprolol, Imdur Alcohol dependence In remission DVT prophylaxis-Lovenox Full Code reason for continued hospitalization: Ongoing IV diuresis, still hypoxic about baseline Quality Stroke Does the patient have a stroke diagnosis?: No VTE Prior VTE?: No VTE Risk Level:: Medical - moderate - high VTE Device Contraindication: Treatment Not Indicated VTE Drug Contraindication: N/A - Med Ordered
[2024-07-18] MEDS: Oxymetazoline HCl 0.05 % Nasal 15 ML SPRAY 2 SPRAY NOSTRIL-B (12:49)
[2024-07-18] MEDS: Insulin Lispro 100 UNIT/ML 3 ML VIAL SUBCUT ×4 (12:49→16:54)
[2024-07-18 16:17] LABS: Glucose, Whole Blood 176 mg/dL (60-115)
[2024-07-18 20:14] LABS: Glucose, Whole Blood 84 mg/dL (60-115)
[2024-07-18] MEDS: Melatonin 3 MG TABLET 6 MG PO (21:16)
[2024-07-18] MEDS: traZODone HCL 100 MG TABLET PO (21:16)
[2024-07-18] MEDS: Enoxaparin Sodium 40 MG/0.4 ML SYRINGE SUBCUT (21:17)
[2024-07-19 03:16] VITALS: BP 133/73; PULSE 87; RESP 20; TEMP 36.8; O2SAT 94
[2024-07-19 06:00] VITALS: BMI 23.1
[2024-07-19] MEDS: Omeprazole 40 MG CAPSULE.DR PO (06:20)
[2024-07-19 07:42] LABS: Glucose, Whole Blood 181 mg/dL (60-115)
[2024-07-19 08:00] VITALS: BP 149/77; PULSE 86; RESP 16; TEMP 36.6; O2SAT 93
[2024-07-19] MEDS: Magnesium Oxide 400 MG TABLET PO (08:40)
[2024-07-19] MEDS: Insulin Lispro 100 UNIT/ML 3 ML VIAL SUBCUT ×2 (08:40)
[2024-07-19] MEDS: Sucralfate 1 GM TABLET PO ×2 (08:40→12:48)
[2024-07-19] MEDS: Thiamine HCL 100 MG TABLET PO (08:40)
[2024-07-19] MEDS: Folic Acid 1 MG TABLET PO (08:40)
[2024-07-19] MEDS: Ferrous Sulfate 324 MG TABLET.DR PO (08:40)
[2024-07-19] MEDS: Insulin Glargine,Hum.rec.anlog 100 UNIT/ML 10 ML VIAL 20 UNIT SUBCUT (08:40)
[2024-07-19] MEDS: Aspirin Enteric Coated 81 MG TABLET.DR PO (08:40)
[2024-07-19] MEDS: Ascorbic Acid 250 MG TABLET PO (08:40)
[2024-07-19] MEDS: Escitalopram Oxalate 10 MG TABLET PO (08:41)
[2024-07-19] MEDS: Furosemide 40 MG/4 ML VIAL IVPUSH (08:41)
[2024-07-19] MEDS: Isosorbide Mononitrate 30 MG TAB.ER.24H PO (08:41)
[2024-07-19] MEDS: 0.9 % Sodium Chloride Flush 3 ML SYRINGE IVFLUSH (08:41)
[2024-07-19] MEDS: hydrALAZINE HCl 50 MG TABLET 100 MG PO (08:41)
[2024-07-19] MEDS: Fluticasone Propionate Nasal 16 GM SPRAY 1 SPRAY NOSTRIL-B (08:41)
[2024-07-19] MEDS: amLODIPine Besylate 10 MG TABLET PO (08:41)
[2024-07-19] MEDS: Nicotine 21 MG PATCH.TD24 TRANSDERMA (08:41)
--- NOTE | 2024-07-19 09:09 | MHC.CM.PN ---
Patient is discharged to home self care. He will self transport home.
[2024-07-19] MEDS: Albuterol/Iprat 2.5/0.5MG 3 ML AMPUL.NEB INHALE (11:21)
[2024-07-19 11:22] VITALS: PULSE 86; RESP 16; O2SAT 97
[2024-07-19 11:32] VITALS: BP 154/73; PULSE 88; RESP 16; TEMP 36.8; O2SAT 100
[2024-07-19 11:39] LABS: Glucose, Whole Blood 117 mg/dL (60-115)
--- NOTE | 2024-07-19 13:46 | PM.DS ---
DS: Providers Provider Date of Service: 07/19/24 Date of admission: 07/15/24 20:05 Date of discharge: 07/19/24 Primary care physician: Zari Henry MD DS: Diagnosis Discharge Diagnosis (1) Acute hyperglycemia: Status: Acute (2) Elevated WBC count: Status: Acute (3) Congestive heart failure: Status: Acute (4) Acute renal insufficiency: Status: Acute DS: Summary Hospital Course Hospital Course: Admission note HPI 49-year-old male with pertinent history of insulin-dependent diabetes mellitus, hypertension, mood disorder, COPD on prn 3-4L O2, alcohol use disorder in early remission, congestive heart failure preserved EF, esophagitis with GERD, CKD stage 3 presented to the ED earlier today for evaluation dyspnea both at rest and worse with exertion that started earlier today. He was recently admitted and discharged from our facility on 06/28 for CHF exacerbation with pneumonia. He has been compliant with all therapies. About 2 days ago reported increased edema in the bilateral lower extremities and since then has gained 5 lb. Reports dyspnea started this morning. He has a mild cough without any sputum production. No fevers or chills, sore throat, congestion, abdominal pain, nausea, vomiting, diarrhea, urinary symptoms, lightheadedness, chest pain. Intermittent wheezing. Reports his grandson is sick with the upper respiratory infection currently. Has not required additional O2. Since arrival, patient has been tachypneic, and has intermittently desatted to 88-89% but remains on 3 L supplemental O2. He is afebrile, no hypotension. There is a leukocytosis of 16.9. Creatinine 2.25, baseline appears to be between 1.4-1.7. BUN 35. Electrolyte levels normal except for CO2 21. Subsequent VBG reassuring with pH 7.42, pCO2 31, bicarb 20. Initially hyperglycemic on arrival with glucose for 0 9, received 5 units regular insulin with improvement to 262. Lactic acid 1.1. Troponin level undetectable. BNP 525. He is negative for COVID, flu, RSV and full viral respiratory panel remains pending. CT of the chest shows significant interval worsening and diffuse patchy bilateral airspace disease as well as interval development of small bilateral pleural effusions and worsening of mediastinal and hilar lymphadenopathy. In the ED, has received IV Lasix, 5 units regular insulin, IV Zosyn, IV vancomycin and 60 mg IV methylprednisolone along with DuoNeb. Hospital course The patient was admitted and treated for: - Acute on chronic hypoxic respiratory failure due to acute on chronic diastolic CHF likely due to poor adherence to dietary restrictions improved with usage of IV Lasix drip which was later changed to IV Lasix 40 mg bid as he made >8L negative balance. Weaned O2 down to room air. No evidence of infection and antibiotics were discontined. He was able to ambulate on room air with no hypoxemia or reported dyspnea. Advised to restart home medications and adhere to dietry restrictions. - Acute kidney injury on CKD 3 With creatinine of 2.25 from basline 1.6-1.8. Likely cardiorenal as it improves with duresis to 1.4. - NAsal Congestion and muscle ache. post Flu vaccine and likely related to it. feels better with Flonase bid Discharge plan Restart Lasix 80 mg in the morning and 40 mg afternoon Monitor weight at home, report any changes to PCP Restrict fluids intake to 1.5L daily Follow with PCP in 1-2 weeks Time Attestation Discharge Coordination Time (in mins): 43 Quality: Safe Use of Opioids Does Pt have an Active Cancer Diagnosis on the Problem List?: No Quality: Stroke Does the patient have a stroke diagnosis?: No Physical Exam Vital Signs: Vital Signs: Last Vital Signs Temp 98.3 F 07/19/24 11:32 Pulse 88 07/19/24 11:32 Resp 16 07/19/24 11:32 BP 154/73 H 07/19/24 11:32 Pulse Ox 100 07/19/24 11:32 O2 Del Method Room Air 07/19/24 11:32 O2 Flow Rate 3 07/18/24 11:06 BMI result Body Mass Index 23.1 Const: Other: Constitutional : Awake, interactive, not in distress Neck : Normal inspection, Supple Cardiovascular : RRR, no JVP, no lower extremity edema Respiratory : good bilateral air entry, no crackles Gastrointestinal: soft, lax, Normal bowel sounds, Non tender Skin : Warm, Dry Neurological : Alert & oriented x3, No focal deficit DS: Data Data Completed and Pending Completed studies during hospitalization [Text1]: Procedures Assistance with Respiratory Ventilation, Less than 24 Consecutive Hours, Continuous Positive Airway Pressure (06/21/24) Detoxification Services for Substance Abuse Treatment (04/26/24) Excision of Esophagus, Via Natural or Artificial Opening Endoscopic, Diagnostic (04/26/24) Excision of Stomach, Pylorus, Via Natural or Artificial Opening Endoscopic, Diagnostic (04/26/24) Introduction of Remdesivir Anti-infective into Peripheral Vein, Percutaneous Approach, [employer] (12/22/23) Labs on day of discharge: Laboratory Results - last 24 hr 07/18/24 07/18/24 07/19/24 16:09 20:09 07:25 POC Glucose 176 H 84 181 H 07/19/24 11:34 POC Glucose 117 H Preliminary micro results at discharge 07/15/24 17:56 Blood Culture - Preliminary Blood - Venous No growth after 48 hours. Imaging Chest x-ray: Radiologist's impression: ITS Impressions Chest X-Ray 07/15/24 16:30 IMPRESSION: Similar appearance of mild diffuse patchy airspace disease. Electronically signed by: Harjit Lopez MD 07/15/2024 05:33 PM EDT RP Chest CT 07/15/24 17:24 IMPRESSION: 1. Significant interval worsening in diffuse patchy bilateral airspace disease. 2. Interval development of small bilateral pleural effusions. 3. Interval worsening in mediastinal and hilar lymphadenopathy. Fleischner guidelines were followed. Electronically signed by: Harjit Lopez MD 07/15/2024 07:03 PM EDT RP Discharge Plan Discharge Anticipated Discharge Date/Time: 07/19/24 13:31 Patient Disposition: Home, Self-Care Discharge Diagnosis: HEart failure exacerbation Referrals: Zari Henry MD [Primary Care Provider] - 1 Week Discharge Medications: New fluticasone propionate 50 mcg/actuation [place],Suspension 1 spray intranasal BID Qty: 16 0RF Continued hydralazine 100 mg tablet 100 mg PO TID 30 Days Qty: 90 5RF sucralfate 1 gram Tablet 1 g PO QIDACHS Qty: 120 0RF trazodone 50 mg tablet 100 mg PO BEDTIME escitalopram oxalate 10 mg tablet 10 mg PO DAILY atorvastatin 40 mg tablet 40 mg PO DAILY gabapentin 300 mg capsule 300 mg PO TID metoprolol succinate 100 mg tablet extended release 24 hr 100 mg PO DAILY magnesium oxide 400 mg (241.3 mg magnesium) Tablet 400 mg PO BIDPC Qty: 60 0RF fluticasone propion-salmeterol [Advair Diskus] 250-50 mcg/dose blister with device 1 ea inhalation BID amlodipine 5 mg tablet 10 mg PO DAILY diclofenac sodium 1 % gel 1 g TOPICAL QID PRN (Reason: Pain) Rx Instructions: left chest wall nicotine [Nicoderm CQ] 14 mg/24 hr patch 24 hour 1 patch transdermal Q24H Qty: 28 0RF omeprazole 40 mg capsule,delayed release(DR/EC) 40 mg PO DAILY@0630 furosemide 40 mg tablet 80 mg PO DAILY Rx Instructions: IN THE MORNING furosemide 40 mg tablet 40 mg PO BEDTIME albuterol sulfate 90 mcg/actuation HFA aerosol inhaler 2 puff inhalation Q4H PRN (Reason: bronchospasm) insulin lispro 100 unit/mL solution 1 sliding scale dose subcut TIDAC Rx Instructions: USES IN INSULIN PUMP (DME) Omnipod 5 G6 Intro Kit (Gen 5) Cartridge SUBCUT isosorbide mononitrate 30 mg Tablet Extended Release 24 Hr 30 mg PO DAILY Qty: 90 0RF Protocol: Hold for SBP< HOLD for SBP < : 90 ascorbic acid (vitamin C) 250 mg Tablet 250 mg PO DAILY Qty: 30 0RF folic acid 1 mg Tablet 1 mg PO DAILY Qty: 30 0RF ferrous sulfate 324 mg (65 mg iron) Tablet,Delayed Release (Dr/Ec) 324 mg PO DAILY Qty: 30 0RF thiamine mononitrate (vit B1) 100 mg Tablet 100 mg PO DAILY Qty: 30 0RF aspirin 81 mg tablet,delayed release (DR/EC) 81 mg PO DAILY Discharge Orders: Discharge Order (Routine); Ordered 07/19/24 Ordered By: Suzi Wilcox Diet: Low salt diet Activity on Discharge: As tolerated Stand Alone Forms: Patient Portal Discharge page Print Language: Kazakh Care Plan Goals: Restart Lasix 80 mg in the morning and 40 mg afternoon Monitor weight at home, report any changes to PCP Restrict fluids intake to 1.5L daily Follow with PCP in 1-2 weeks Health Concerns: Read below Plan of Treatment: Read below Assessment: Read below
[2024-07-20 18:54] LABS: Strep Pneumo Ag urine Not Detected (Not Detected)
[2024-07-21 11:28] LABS: Legionella Ag Urine Not Detected (Not Detected)
== END 2024-07-19 15:14 | disposition home or self-care (01) | DRG 194 ==
LOC: HO.ED 19:11 → HO.EDOVER 20:11 → HO.S3 20:24 → HO.IMC 23:23
PROVIDERS: Internal Medicine; Physician Assistant Medical; Admitting Provider Physician Assistant; Emergency Provider Emergency Medicine; PCP Internal Medicine; Visit Provider Student in an Organized Health Care Education/Training Program
DX: I13.0 Hypertensive heart and chronic kidney disease with heart failure and stage 1 through stage 4 chronic kidney disease, or unspecified chronic kidney disease (principal); J96.21 Acute and chronic respiratory failure with hypoxia; J18.9 Pneumonia, unspecified organism; J44.0 Chronic obstructive pulmonary disease with (acute) lower respiratory infection; E11.65 Type 2 diabetes mellitus with hyperglycemia; D50.9 Iron deficiency anemia, unspecified; I50.33 Acute on chronic diastolic (congestive) heart failure; N17.9 Acute kidney failure, unspecified; Z99.81 Dependence on supplemental oxygen; E87.5 Hyperkalemia; F17.210 Nicotine dependence, cigarettes, uncomplicated; Z23 Encounter for immunization; N18.30 Chronic kidney disease, stage 3 unspecified; F10.21 Alcohol dependence, in remission; Z20.822 Contact with and (suspected) exposure to COVID-19; Z91.119 Patient's noncompliance with dietary regimen due to unspecified reason; Z71.6 Tobacco abuse counseling; Z79.82 Long term (current) use of aspirin; Z79.51 Long term (current) use of inhaled steroids; Z79.899 Other long term (current) drug therapy
CPT/HCPCS: 0241U; 36415; 71046; 71250; 80048; 80053; 82803; 82947; 83605; 83735; 83880; 84484; 85025; 85027; 87040; 87205; 87449; 87633; 87899; 90656; 93005; 94640; 97161; 99285; J1650; J1940; J2543; J2919; J3370

== ENCOUNTER → 2024-07-15 20:05 | Outpatient (BNV) | payer OTHER, SELFPAY | PROVIDERS: Admitting Provider Physician Assistant; Emergency Provider Emergency Medicine; PCP Internal Medicine; Visit Provider Physician Assistant | DX: E11.65 Type 2 diabetes mellitus with hyperglycemia (principal); I50.33 Acute on chronic diastolic (congestive) heart failure; N17.9 Acute kidney failure, unspecified; E11.22 Type 2 diabetes mellitus with diabetic chronic kidney disease; N18.30 Chronic kidney disease, stage 3 unspecified; D72.829 Elevated white blood cell count, unspecified | CPT/HCPCS: 99223; 99232; 99233; 99239 ==

== ENCOUNTER 2024-07-22 14:36 | Outpatient (AMB) | payer OTHER, SELFPAY ==
[2024-07-22 14:41] VITALS: BP 136/70; PULSE 80; O2SAT 93; BMI 24.5
--- NOTE | 2024-07-22 14:41 | HO.NEPHOV ---
Vital Signs 07/22/24 14:41 Height 5 ft 5 in Weight 147 lb BMI 24.5 BP 136/70 Blood Pressure Location Rt brachial Position Sitting Pulse 80 Pulse Source Pulse Oximeter Pulse Oximetry (%) 93 Oxygen Delivery Method Room Air Intake Visit Reasons: Pt seen at [facility] on [place]/11/24/ 1 week fu past due [employer]ing Plug [employer] Required: No Accompanied by: Self / Same As Patient Allergies dulaglutide [From Trulicity] Allergy (Verified 07/22/24 14:42) Unknown metformin [METFORMIN] Adverse Reaction (Mild, Verified 07/22/24 14:42) DIARRHEA, nausea and vomiting Medication List - Last Reconciled 07/22/24 by Kj Reveles MD albuterol sulfate 90 mcg/actuation 2 puffs inhalation Q4H PRN amlodipine 10 mg PO DAILY ascorbic acid (vitamin C) 250 mg PO DAILY aspirin 81 mg PO DAILY atorvastatin 40 mg PO DAILY diclofenac sodium 1% 1 g topical QID PRN escitalopram oxalate 10 mg PO DAILY ferrous sulfate 324 mg PO DAILY fluticasone propion-salmeterol 250-50 mcg/dose (Advair Diskus) 1 ea inhalation BID fluticasone propionate 50 mcg/actuation 1 spray intranasal BID folic acid 1 mg PO DAILY furosemide 80 mg PO DAILY furosemide 40 mg PO BEDTIME gabapentin 300 mg PO TID hydralazine 100 mg PO TID 30 days insulin lispro 1 sliding scale dose subcut TIDAC insulin pump cart,auto,BT-cntr (Omnipod 5 G6 Intro Kit (Gen 5) subcutaneous cartridge with controller) isosorbide mononitrate ER 30 mg See Protocol PO DAILY magnesium oxide 400 mg PO BIDPC metoprolol succinate ER 100 mg PO DAILY nicotine (Nicoderm CQ) 1 patch transdermal Q24H omeprazole 40 mg PO DAILY@0630 sucralfate 1 g PO QIDACHS thiamine mononitrate (vit B1) 100 mg PO DAILY trazodone 100 mg PO BEDTIME HPI Comments Details: 48-year-old male with pertinent history of insulin-dependent diabetes mellitus, hypertension, mood disorder, COPD with chronic hypoxia on prn home night time O2, alcohol use disorder, congestive heart failure with preserved EF, esophagitis with gastroesophageal reflux disease, alcohol use disorder, CKD stage 3 Recently discharged from hospitalization. He is here for follow-up [facility] Medical History (Updated 08/26/24 @ 15:28 by Kj Reveles MD) KELVIN (acute kidney injury) Congestive heart failure Hypertension Chronic heart failure with preserved ejection fraction (HFpEF) Acute respiratory failure with hypoxia Congestive heart failure CKD (chronic kidney disease) stage 1, GFR 90 ml/min or greater Depression COPD exacerbation YARELIS (obstructive sleep apnea) CHF exacerbation Hypoxia Acute respiratory failure Uncontrolled hypertension Acute on chronic diastolic (congestive) heart failure Acute on chronic anemia Hyperglycemia due to type 2 diabetes mellitus YARELIS (obstructive sleep apnea) Congestive heart failure Anxiety HLD (hyperlipidemia) Diabetes Hypercholesteremia HTN (hypertension) Asthma PAD (peripheral artery disease) Surgical History History of esophagogastroduodenoscopy S/P angiogram of extremity Family History Father Alzheimer disease CAD (coronary artery disease) Social History Household Members: Family Household Members Other:: 4 Housing: Apartment Do you presently have visiting nurse or other home services: Yes ([facility] for [facility] help and meals) Unable to assess alcohol history related to: Unknown Alcohol intake: former Comment: pt is independent in room Patient Tobacco Use Status: Current everyday Tobacco user Tobacco use type: Cigarette Cigarette Packs Per Day: 1 Cigarettes Per Day: 20.0 Years Smoked: 35 e-Cigarette/Vaping Use: Never Used Second Hand Smoke Exposure: Yes Substance Use Type: Marijuana Advance Directives Date on File: 06/21/21 service: No Current occupational status: disabled Physical Exam Vital Signs: Last Vital Signs Pulse 80 07/22/24 14:41 BP 136/70 07/22/24 14:41 Pulse Ox 93 07/22/24 14:41 Oxygen Delivery Method Room Air 07/22/24 14:41 BMI result Body Mass Index 24.5 Awake. Comfortable. Neck is supple. Mucosa moist. Lungs air entry equal Heart S1-S2 heard no gallop. Abdomen soft. Extremities no edema. No involuntary movements. No myoclonus. Results Reviewed Nephrology Results: Hgb 8.8 g/dl (14.0-18.0) L 07/18/24 WBC 9.8 X10*3/uL (4.8-10.8) 07/18/24 Plt Count 460 X10*3/uL (160-400) H 07/18/24 Sodium 144 mmol/L (135-145) 07/18/24 Potassium 3.9 mmol/L (3.3-5.1) 07/18/24 Chloride 106 mmol/L (96-108) 07/18/24 Carbon Dioxide 29 mmol/L (22-29) 07/18/24 BUN 36 mg/dL (9-16) H 07/18/24 Creatinine 1.43 mg/dL (0.5-1.4) H 07/18/24 Calcium 9.6 mg/dL (8.4-10.2) 07/18/24 Urine Protein 30 (1+) mg/dL (Neg-Trace) H 06/11/24 Urine Creatinine 90.04 mg/dL 06/11/24 Assessment & Plan Assessment & Plan (1) KELVIN (acute kidney injury): Code(s): N17.9 - Acute kidney failure, unspecified Category: Medical Plan KELVIN due to tubular injury. Renal function gradually improving. Serum creatinine is yet to reach baseline. Goal is to slow the portion disease Continue overt nephrotoxic agents Keep intake more than output. Mild anemia Recheck hemoglobin prior to next visit Coding Level of Care Code Est Pt Level 4 (57494) Diagnoses KELVIN (acute kidney injury) N17.9
== END 2024-07-22 15:07 | disposition home or self-care (01) ==
PROVIDERS: PCP Internal Medicine; Visit Provider Internal Medicine Hypertension Specialist
DX: N17.0 Acute kidney failure with tubular necrosis (principal); E11.22 Type 2 diabetes mellitus with diabetic chronic kidney disease; N18.30 Chronic kidney disease, stage 3 unspecified
CPT/HCPCS: 99214

== ENCOUNTER → 2024-07-22 14:36 | Outpatient (BNVA) | payer OTHER, SELFPAY | PROVIDERS: PCP Internal Medicine; Visit Provider Internal Medicine Hypertension Specialist | DX: E11.22 Type 2 diabetes mellitus with diabetic chronic kidney disease (principal); I12.9 Hypertensive chronic kidney disease with stage 1 through stage 4 chronic kidney disease, or unspecified chronic kidney disease; N18.30 Chronic kidney disease, stage 3 unspecified; N17.9 Acute kidney failure, unspecified; Z99.81 Dependence on supplemental oxygen; Z79.4 Long term (current) use of insulin | CPT/HCPCS: 99212 ==

== ENCOUNTER 2024-09-20 23:39 | Emergency (ER) | payer OTHER, SELFPAY ==
[2024-09-20 23:50] VITALS: BP 119/59; PULSE 72; RESP 12; TEMP 36.8; O2SAT 97
--- NOTE | 2024-09-20 23:52 | ED.GENADULT ---
HPI - General Adult General Chief complaint: General Medical Stated complaint: GENERAL WEAKNESS Time Seen by Provider: 09/20/24 23:48 Source: patient Mode of arrival: EMS Limitations: no limitations History of Present Illness ED Provider: corrie BANGURA narrative: Patient's history of depression, anemia been feeling very weak for last few days also sleeping a lot because of depression no shortness a breath no sore throat does have running nose for last few days Related Data Home Medications ?Medication ?Instructions ?Recorded ?Confirmed escitalopram oxalate 10 mg tablet 10 mg PO DAILY 08/01/22 07/22/24 trazodone 50 mg tablet 100 mg PO BEDTIME 08/01/22 07/22/24 aspirin 81 mg tablet,delayed 81 mg PO DAILY 10/06/22 07/22/24 release atorvastatin 40 mg tablet 40 mg PO DAILY 10/06/22 07/22/24 gabapentin 300 mg capsule 300 mg PO TID 10/06/22 07/22/24 metoprolol succinate 100 mg 100 mg PO DAILY 10/06/22 07/22/24 tablet,extended release 24 hr furosemide 40 mg tablet 80 mg PO DAILY 06/26/23 07/22/24 furosemide 40 mg tablet 40 mg PO BEDTIME 11/24/23 07/22/24 fluticasone 250 mcg-salmeterol 50 1 ea inhalation BID 12/22/23 07/22/24 mcg/dose blistr powdr for inhalation (Advair Diskus) albuterol sulfate 90 mcg/actuation 2 puff inhalation Q4H PRN 04/26/24 07/22/24 aerosol inhaler bronchospasm insulin lispro 100 unit/mL 1 sliding scale dose subcut TIDAC 04/26/24 07/22/24 subcutaneous solution amlodipine 5 mg tablet 10 mg PO DAILY 06/02/24 07/22/24 diclofenac sodium 1 % topical gel 1 g topical QID PRN Pain 06/02/24 07/22/24 insulin pump cartridge,automated 06/11/24 07/22/24 dose,BT with controller subcutaneous (Omnipod 5 G6 Intro Kit (Gen 5) subcutaneous cartridge with controller) omeprazole 40 mg capsule,delayed 40 mg PO DAILY@0630 07/15/24 07/22/24 release Previous Rx's ?Medication ?Instructions ?Recorded magnesium oxide 400 mg (241.3 mg 400 mg PO BIDPC #60 tabs 08/20/22 magnesium) tablet sucralfate 1 gram tablet 1 g PO QIDACHS #120 tabs 09/10/22 hydralazine 100 mg tablet 100 mg PO TID 30 days #90 tabs 05/09/23 nicotine 14 mg/24 hr daily 1 patch transdermal Q24H #28 ea 06/09/24 transdermal patch (Nicoderm CQ) ascorbic acid (vitamin C) 250 mg 250 mg PO DAILY #30 tabs 06/19/24 tablet ferrous sulfate 324 mg (65 mg 324 mg PO DAILY #30 tabs 06/19/24 iron) tablet,delayed release folic acid 1 mg tablet 1 mg PO DAILY #30 tabs 06/19/24 isosorbide mononitrate 30 mg 30 mg PO DAILY #90 tabs 06/19/24 tablet,extended release 24 hr thiamine mononitrate (vit B1) 100 100 mg PO DAILY #30 tabs 06/19/24 mg tablet fluticasone propionate 50 1 spray intranasal BID #16 grams 07/19/24 mcg/actuation nasal spray,suspension Allergies Allergy/AdvReac Type Severity Reaction Status Date / Time dulaglutide [From [facility]] Allergy Unknown Verified 07/22/24 14:42 metformin [METFORMIN] AdvReac Mild DIARRHEA, Verified 07/22/24 14:42 nausea and vomiting Review of Systems Review of Systems: Yes all other systems are reviewed and are negative [facility] Past Medical History Medical History KELVIN (acute kidney injury) Congestive heart failure Hypertension Chronic heart failure with preserved ejection fraction (HFpEF) Acute respiratory failure with hypoxia Congestive heart failure CKD (chronic kidney disease) stage 1, GFR 90 ml/min or greater Depression COPD exacerbation YARELIS (obstructive sleep apnea) CHF exacerbation Hypoxia Acute respiratory failure Uncontrolled hypertension Acute on chronic diastolic (congestive) heart failure Acute on chronic anemia Hyperglycemia due to type 2 diabetes mellitus YARELIS (obstructive sleep apnea) Congestive heart failure Anxiety HLD (hyperlipidemia) Diabetes Hypercholesteremia HTN (hypertension) Asthma PAD (peripheral artery disease) Surgical History History of esophagogastroduodenoscopy S/P angiogram of extremity Family History Family History Father Alzheimer disease CAD (coronary artery disease) Social History Social History Household Members: Family Household Members Other:: 4 Housing: Apartment Do you presently have visiting nurse or other home services: Yes ([facility] for housing help and meals) Unable to assess alcohol history related to: Unknown Alcohol intake: former Comment: pt is independent in room Patient Tobacco Use Status: Current everyday Tobacco user Tobacco use type: Cigarette Cigarette Packs Per Day: 1 Cigarettes Per Day: 20.0 Years Smoked: 35 Smoked in Last 30 Days: Yes e-Cigarette/Vaping Use: Never Used Second Hand Smoke Exposure: Yes Substance Use Type: Marijuana Advance Directives Date on File: 06/21/21 service: No Current occupational status: disabled Physical Exam ED Vital Signs: Vital Signs - 24 hr 09/20/24 23:50 Temperature 98.2 F Pulse Rate 72 Respiratory Rate 12 Blood Pressure 119/59 L Pulse Oximetry 97 Oxygen Delivery Method Room Air Appearance: Alert. Oriented X3. No acute distress. Eyes: Mild pallor ENT: Pharynx normal. Oral Mucosa moist Neck: Normal inspection. Neck supple. CVS: Normal heart rate and rhythm. Pulses normal. Respiratory: No respiratory distress. Equal air entry bilateral, no wheezing/rales/rhonchi Abdomen: Soft and nontender. Bowel sounds are present, no mass palpable, no CVA tenderness Skin: Skin warm and dry. Normal skin color. Normal skin turgor. Extremities: No lower extremity edema. No calf tenderness Neuro: Oriented X 3. No motor deficit. No sensory deficit.No cerebellar signs , cranial nerves II-XII intact Medical Decision Making Medical Decision Making [facility] Narrative: Patient is feeling lethargic weak tired workup is negative except for has chronic renal insufficiency creatinine of 1.86 patient is taking trazodone 100 mg daily in the night maybe the reason that his so sleepy and tired patient advised to decrease the dose of trazodone to 50 mg daily drink plenty of fluids will watch him for some more time and then discharge once he feels better Differential Diagnosis Differential Diagnoses: The differential diagnosis associated with the presentation includes Metabolic encephalopathy/renal failure/viral syndrome/deeper Admission/Observation Consideration of admission/observation: Escalation of care including admission/observation considered Lab Data [facility] Lab Attestation statement: I reviewed the patient's lab results. 11/23/24 00:24 09/21/24 00:24 Labs: Lab Results 09/21/24 09/21/24 Range/Units 00:22 00:24 WBC 9.4 (4.8-10.8) X10*3/uL RBC 4.92 D (4.60-5.80) X10*6/uL Hgb 10.7 L D (14.0-18.0) g/dl Hct 33.8 L (42.0-52.0) % MCV 68.7 L (80.0-98.0) fL MCH 21.7 L (27.0-33.0) pg MCHC 31.7 (31.0-36.0) g/dl RDW 21.2 H (11.0-16.0) % Plt Count 297 D (160-400) X10*3/uL MPV 9.4 (9.4-12.4) fL Immature Gran % (Auto) 0.4 (0.0-0.4) % Neut % (Auto) 75.7 H (45-73) % Lymph % (Auto) 14.5 L (20-40) % [place] % (Auto) 8.3 (2-11) % Eos % (Auto) 0.7 (0-4) % Baso % (Auto) 0.4 (0-2) % Lymph # (Auto) 1.4 (1.2-4.9) X10*3/uL [place] # (Auto) 0.8 (0.1-1.2) X10*3/uL Eos # (Auto) 0.1 (0.0-0.4) X10*3/uL Baso # (Auto) 0.0 (0.0-0.2) X10*3/uL Abs Immat Gran (auto) 0.04 H (0.00-0.03) X10*3/uL Absolute Neuts (auto) 7.1 (2.0-8.3) x10*3/uL Absolute Nucleated RBC 0.000 (0.0-0.012) X10*3/uL Nucleated RBC % (auto) 0.0 (0.0-0.2) /100WBC Sodium 135 (135-145) mmol/L Potassium 3.2 L (3.3-5.1) mmol/L Chloride 102 (96-108) mmol/L Carbon Dioxide 22 (22-29) mmol/L Anion Gap 14 (12-20) BUN 20 H (9-16) mg/dL Creatinine 1.86 H (0.5-1.4) mg/dL Estim Creat Clear Calc TNP Estimated GFR 39 Random Glucose 210 H (60-115) mg/dL Calcium 8.1 L D (8.4-10.2) mg/dL Total Bilirubin 0.1 (0.0-1.0) mg/dL AST 16 (5-37) U/L ALT 12 (0-40) U/L Alkaline Phosphatase 85 (39-117) U/L Total Protein 6.1 L (6.5-8.0) g/dL Albumin 3.4 L (3.5-5.0) g/dL Influenza Type A (PCR) NEGATIVE (Negative) Influenza Type B (PCR) NEGATIVE (Negative) RSV RNA Qual (PCR) NEGATIVE (Negative) SARS-CoV-2 RNA (RT-PCR) NEGATIVE (Negative) Discharge Plan Discharge Clinical Impression: Weakness, Chronic renal failure Patient Disposition: Home, Self-Care Instructions: Chronic Kidney Disease (ED), Weakness (ED) Additional Instructions: Your symptoms likely from medications and kidney disease Decrease the dose of trazodone to 50 mg every night as needed for sleeping Drink plenty of fluids and take medication as prescribed by PCP Follow up with your PCP Prescriptions: No Action hydralazine 100 mg tablet 100 mg PO TID 30 Days Qty: 90 5RF sucralfate 1 gram Tablet 1 g PO QIDACHS Qty: 120 0RF trazodone 50 mg tablet 100 mg PO BEDTIME escitalopram oxalate 10 mg tablet 10 mg PO DAILY atorvastatin 40 mg tablet 40 mg PO DAILY gabapentin 300 mg capsule 300 mg PO TID metoprolol succinate 100 mg tablet extended release 24 hr 100 mg PO DAILY magnesium oxide 400 mg (241.3 mg magnesium) Tablet 400 mg PO BIDPC Qty: 60 0RF fluticasone propion-salmeterol [Advair Diskus] 250-50 mcg/dose blister with device 1 ea inhalation BID amlodipine 5 mg tablet 10 mg PO DAILY diclofenac sodium 1 % gel 1 g TOPICAL QID PRN (Reason: Pain) Rx Instructions: left chest wall nicotine [Nicoderm CQ] 14 mg/24 hr patch 24 hour 1 patch transdermal Q24H Qty: 28 0RF omeprazole 40 mg capsule,delayed release(DR/EC) 40 mg PO DAILY@0630 fluticasone propionate 50 mcg/actuation [place],Suspension 1 spray intranasal BID Qty: 16 0RF furosemide 40 mg tablet 80 mg PO DAILY Rx Instructions: IN THE MORNING furosemide 40 mg tablet 40 mg PO BEDTIME albuterol sulfate 90 mcg/actuation HFA aerosol inhaler 2 puff inhalation Q4H PRN (Reason: bronchospasm) insulin lispro 100 unit/mL solution 1 sliding scale dose subcut TIDAC Rx Instructions: USES IN INSULIN PUMP (DME) Omnipod 5 G6 Intro Kit (Gen 5) Cartridge SUBCUT isosorbide mononitrate 30 mg Tablet Extended Release 24 Hr 30 mg PO DAILY Qty: 90 0RF Protocol: Hold for SBP< HOLD for SBP < : 90 ascorbic acid (vitamin C) 250 mg Tablet 250 mg PO DAILY Qty: 30 0RF folic acid 1 mg Tablet 1 mg PO DAILY Qty: 30 0RF ferrous sulfate 324 mg (65 mg iron) Tablet,Delayed Release (Dr/Ec) 324 mg PO DAILY Qty: 30 0RF thiamine mononitrate (vit B1) 100 mg Tablet 100 mg PO DAILY Qty: 30 0RF aspirin 81 mg tablet,delayed release (DR/EC) 81 mg PO DAILY Print Language: Malay
--- NOTE | 2024-09-20 23:54 | PC.NURSE ---
Ciara comes from home with complaints of general malaise x2days. Spoke with copy writer today who recommended he be checked out. He was taken off his iron pills about one month ago and has progressively felt worse and worse. Today also complains of some dyspnea, oxygen levels appropriate, lung sounds clear,
[2024-09-21 00:28] LABS: MANUAL DIFF FLAG NO
[2024-09-21 00:29] LABS: Basophils Percent Auto 0.4 % (0-2); Eosinophils Absolute Auto 0.1 X10*3/uL (0.0-0.4); Eosinophils Percent Auto 0.7 % (0-4); Hematocrit 33.8 % (42.0-52.0); Hemoglobin 10.7 g/dl (14.0-18.0); Imm Gran Abs Auto 0.04 X10*3/uL (0.00-0.03); Imm Gran Pct Auto 0.4 % (0.0-0.4); Lymphocytes Absolute Auto 1.4 X10*3/uL (1.2-4.9); Lymphocytes Percent Auto 14.5 % (20-40); Mean Corpuscular HGB Conc 31.7 g/dl (31.0-36.0); Mean Corpuscular Hemoglobin 21.7 pg (27.0-33.0); Mean Corpuscular Volume 68.7 fL (80.0-98.0); Mean Platelet Volume 9.4 fL (9.4-12.4); Monocytes Absolute Auto 0.8 X10*3/uL (0.1-1.2); Monocytes Percent Auto 8.3 % (2-11); Neutrophils Absolute Auto 7.1 x10*3/uL (2.0-8.3); Neutrophils Percent Auto 75.7 % (45-73); Platelet Count 297 X10*3/uL (160-400); Red Blood Count 4.92 X10*6/uL (4.60-5.80); Red Cell Distribution Width 21.2 % (11.0-16.0); White Blood Count 9.4 X10*3/uL (4.8-10.8)
[2024-09-21 00:52] LABS: Alanine Aminotransferase 12 U/L (0-40); Albumin Level 3.4 g/dL (3.5-5.0); Alkaline Phosphatase 85 U/L (39-117); Anion Gap 14 (12-20); Aspartate Amino Transferase 16 U/L (5-37); Bilirubin Total 0.1 mg/dL (0.0-1.0); Blood Urea Nitrogen 20 mg/dL (9-16); Calcium 8.1 mg/dL (8.4-10.2); Carbon Dioxide 22 mmol/L (22-29); Chloride 102 mmol/L (96-108); Estimated Glomerular Filt Rate 39; Glucose Random 210 mg/dL (60-115); Potassium 3.2 mmol/L (3.3-5.1); Sodium 135 mmol/L (135-145); Total Protein 6.1 g/dL (6.5-8.0)
[2024-09-21 01:07] LABS: Influenza A PCR NEGATIVE (Negative); Influenza B PCR NEGATIVE (Negative); Resp Syncy Virus RNA Qual PCR NEGATIVE (Negative); SARS COV2 PCR INHOUSE NEGATIVE (Negative)
[2024-09-21 01:51] VITALS: BP 124/63; PULSE 74; RESP 19; TEMP 36.8; O2SAT 99
== END 2024-09-21 02:03 | disposition home or self-care (01) ==
PROVIDERS: Emergency Provider Internal Medicine; PCP Internal Medicine
DX: R53.1 Weakness (principal); I13.0 Hypertensive heart and chronic kidney disease with heart failure and stage 1 through stage 4 chronic kidney disease, or unspecified chronic kidney disease; N18.1 Chronic kidney disease, stage 1; I50.9 Heart failure, unspecified; F17.210 Nicotine dependence, cigarettes, uncomplicated; E78.5 Hyperlipidemia, unspecified; Z79.02 Long term (current) use of antithrombotics/antiplatelets; Z79.899 Other long term (current) drug therapy
CPT/HCPCS: 0241U; 80053; 85025; 99283; 99284

== ENCOUNTER 2024-09-25 01:35 | Emergency (ER) | payer OTHER, SELFPAY ==
--- NOTE | ~2024-09-25 | XR_ITS ---
EXAMINATION: XR CHEST CLINICAL INFORMATION: dyspnea COMPARISON: July 15, 2024. TECHNIQUE: Frontal view of the chest was obtained. FINDINGS: The cardiomediastinal silhouette is normal. There is no focal lung consolidation or pleural effusions. The bony structures and the soft tissues are unremarkable. XR/XR chest 1V IMPRESSION: No acute cardiopulmonary process. Electronically signed by: Adan Hamilton MD 09/25/2024 03:05 AM [facility] [place]
[2024-09-25 01:41] VITALS: BP 198/82; PULSE 69; O2SAT 100
[2024-09-25 01:45] VITALS: BP 175/81; PULSE 55; RESP 18; TEMP 36.4; O2SAT 100
[2024-09-25 01:50] LABS: Glucose, Whole Blood 360 mg/dL (60-115)
--- NOTE | 2024-09-25 01:50 | ECG_ITS ---
Test Reason : WEAKNESS Blood Pressure : / mmHG Vent. Rate : 054 BPM Atrial Rate : 054 BPM P-R Int : 122 ms QRS Dur : 084 ms QT Int : 458 ms P-R-T Axes : 042 038 054 degrees QTc Int : 434 ms Sinus bradycardia Nonspecific ST abnormality Abnormal ECG When compared with ECG of 15-JUL-2024 15:44, Vent. rate has decreased BY 28 BPM Referred By: Kalpana Maya Electronically Signed By:JESSICA LY
--- NOTE | 2024-09-25 02:00 | ED_ITS ---
HPI - Weakness General Chief complaint: Weakness Stated complaint: GENERAL WEAKNESS Time Seen by Provider: 09/25/24 01:47 Source: patient, EMS and old records reviewed Mode of arrival: EMS Limitations: no limitations History of Present Illness ED Provider: DAYLIN HPI Narrative: 49 yo male with PMH of CKD, acute upper GI bleed, DM, HTN, PAD, COPD, dCHF who was just seen 09/20 for weakness he comes back tonight with multiple complaints very worried about his CKD states his mom from it. He is slightly depressed as it has been a year and her anniversary just came out on 09/16. He notes weakness, hyperglycemia and feels short of breath. No chest pain fevers. He notes he has a poor appetite. He also notes he just got a refill of his insulin pump but it took about a month and he had a hard time with the sliding scale. MD Complaint: generalized weakness Onset (ago): week(s) (1) Duration: constant Location: generalized Migration: none Severity: moderate Relieving factors: rest Exacerbating factors: movement and exertion Context: depression Associated symptoms: loss of appetite and shortness of breath Related Data Home Medications ?Medication ?Instructions ?Recorded ?Confirmed escitalopram oxalate 10 mg tablet 10 mg PO DAILY 08/01/22 07/22/24 trazodone 50 mg tablet 100 mg PO BEDTIME 08/01/22 07/22/24 aspirin 81 mg tablet,delayed 81 mg PO DAILY 10/06/22 07/22/24 release atorvastatin 40 mg tablet 40 mg PO DAILY 10/06/22 07/22/24 gabapentin 300 mg capsule 300 mg PO TID 10/06/22 07/22/24 metoprolol succinate 100 mg 100 mg PO DAILY 10/06/22 07/22/24 tablet,extended release 24 hr furosemide 40 mg tablet 80 mg PO DAILY 06/26/23 07/22/24 furosemide 40 mg tablet 40 mg PO BEDTIME 11/24/23 07/22/24 fluticasone 250 mcg-salmeterol 50 1 ea inhalation BID 12/22/23 07/22/24 mcg/dose blistr powdr for inhalation (Advair Diskus) albuterol sulfate 90 mcg/actuation 2 puff inhalation Q4H PRN 04/26/24 07/22/24 aerosol inhaler bronchospasm insulin lispro 100 unit/mL 1 sliding scale dose subcut TIDAC 04/26/24 07/22/24 subcutaneous solution amlodipine 5 mg tablet 10 mg PO DAILY 06/02/24 07/22/24 diclofenac sodium 1 % topical gel 1 g topical QID PRN Pain 06/02/24 07/22/24 insulin pump cartridge,automated 06/11/24 07/22/24 dose,BT with controller subcutaneous (Omnipod 5 G6 Intro Kit (Gen 5) subcutaneous cartridge with controller) omeprazole 40 mg capsule,delayed 40 mg PO DAILY@0630 07/15/24 07/22/24 release Previous Rx's ?Medication ?Instructions ?Recorded magnesium oxide 400 mg (241.3 mg 400 mg PO BIDPC #60 tabs 08/20/22 magnesium) tablet sucralfate 1 gram tablet 1 g PO QIDACHS #120 tabs 09/10/22 hydralazine 100 mg tablet 100 mg PO TID 30 days #90 tabs 05/09/23 nicotine 14 mg/24 hr daily 1 patch transdermal Q24H #28 ea 06/09/24 transdermal patch (Nicoderm CQ) ascorbic acid (vitamin C) 250 mg 250 mg PO DAILY #30 tabs 06/19/24 tablet ferrous sulfate 324 mg (65 mg 324 mg PO DAILY #30 tabs 06/19/24 iron) tablet,delayed release folic acid 1 mg tablet 1 mg PO DAILY #30 tabs 06/19/24 isosorbide mononitrate 30 mg 30 mg PO DAILY #90 tabs 06/19/24 tablet,extended release 24 hr thiamine mononitrate (vit B1) 100 100 mg PO DAILY #30 tabs 06/19/24 mg tablet fluticasone propionate 50 1 spray intranasal BID #16 grams 07/19/24 mcg/actuation nasal spray,suspension Allergies Allergy/AdvReac Type Severity Reaction Status Date / Time dulaglutide [From [facility]] Allergy Unknown Verified 09/25/24 01:44 metformin [METFORMIN] AdvReac Mild DIARRHEA, Verified 09/25/24 01:44 nausea and vomiting Review of Systems 2 Review of Systems: Constitutional : No Fever, No Chills, pos Fatigue ENT/Mouth : No sore throat, No Rhinorrhea Eyes: No Eye Pain, No Swelling, No Redness Cardiovascular : No Chest Pain, pos SOB, No Dyspnea on Exertion Respiratory : No Cough, No Sputum Gastrointestinal : No Nausea, No Vomiting, No Diarrhea, No abdominal Pain Genitourinary : No Dysuria, No Urinary Frequency, No Hematuria, Musculoskeletal : No joint pain, No Myalgias, No Joint Swelling Skin : No Skin Lesions, No rash Neuro : pos Weakness, No Numbness, No Dizziness, no Headache Psych : No Anxiety/Panic, No Depression All other systems reviewed and are negative [facility] Past Medical History Attestation statement: The following information was validated with the patient. Source: old records reviewed Medical History KELVIN (acute kidney injury) Congestive heart failure Hypertension Chronic heart failure with preserved ejection fraction (HFpEF) Acute respiratory failure with hypoxia Congestive heart failure CKD (chronic kidney disease) stage 1, GFR 90 ml/min or greater Depression COPD exacerbation YARELIS (obstructive sleep apnea) CHF exacerbation Hypoxia Acute respiratory failure Uncontrolled hypertension Acute on chronic diastolic (congestive) heart failure Acute on chronic anemia Hyperglycemia due to type 2 diabetes mellitus YARELIS (obstructive sleep apnea) Congestive heart failure Anxiety HLD (hyperlipidemia) Diabetes Hypercholesteremia HTN (hypertension) Asthma PAD (peripheral artery disease) Surgical History History of esophagogastroduodenoscopy S/P angiogram of extremity Family History Family History Father Alzheimer disease CAD (coronary artery disease) Social History Social History Household Members: Family Household Members Other:: 4 Housing: Apartment Do you presently have visiting nurse or other home services: Yes ([facility] for housing help and meals) Unable to assess alcohol history related to: Unknown Alcohol intake: former Comment: pt is independent in room Patient Tobacco Use Status: Current everyday Tobacco user Tobacco use type: Cigarette Cigarette Packs Per Day: 1 Cigarettes Per Day: 20.0 Years Smoked: 35 e-Cigarette/Vaping Use: Never Used Second Hand Smoke Exposure: Yes Substance Use Type: Marijuana Advance Directives: Yes Advance Directives on File: Yes Advance Directives Date on File: 06/21/21 Do you have a plan to hurt others: No Plan service: No Current occupational status: disabled Physical Exam 2 Vital Signs: Vital Signs: Last Vital Signs Temp 97.5 F 09/25/24 01:45 Pulse 55 09/25/24 01:45 Resp 18 09/25/24 01:45 BP 175/81 H 09/25/24 01:45 Pulse Ox 100 09/25/24 01:45 O2 Del Method Room Air 09/25/24 01:45 BMI result Body Mass Index 20.0 Appearance: Alert. Oriented X3. No acute distress. Eyes: Pupils equal, round and reactive to light. ENT: Pharynx normal. Neck: Normal inspection. Neck supple. CVS: Normal heart rate and rhythm. Pulses normal. Respiratory: No respiratory distress. Breath sounds normal. Abdomen: Soft and nontender. Skin: Skin warm and dry. Normal skin color. Normal skin turgor. Extremities: No lower extremity edema. No calf ttp Neuro: Oriented X 3. No motor deficit. No sensory deficit. Medications Administered Discontinued Medications Generic Name Dose Route Start Last Admin Trade Name Freq PRN Reason Stop Dose Admin Insulin Human Regular 5 unit 09/25/24 01:56 09/25/24 02:31 Insulin Regular, Human 100 Unit/Ml 10 Ml Vial IVPUSH 09/25/24 01:57 5 unit ONCE ONE Administration Medical Decision Making Medical Decision Making [facility] Narrative: 49 yo male with PMH of CKD, acute upper GI bleed, DM, HTN, PAD, COPD, dCHF now here with c/o weakness, depression, dyspnea - he is not toxic appearing lungs are CTAB and he has no swelling in the legs at this time will need basic labs, CXR, EKG - he now has insulin pump back which is good. He notes he was worried about his renal failure dx Differential Diagnosis Differential Diagnoses: The differential diagnosis associated with the presentation includes depression, weakness, lyte abnormality Admission/Observation Consideration of admission/observation: Escalation of care including admission/observation considered reassuring labs just elevated glucose His kidney function is much better and BNP at baseline with pulm edema on CXR laying flat 100% at this time stable for DC Lab Data [facility] Lab Attestation statement: I reviewed the patient's lab results. 09/25/24 02:04 09/25/24 02:04 Labs: Lab Results 09/25/24 09/25/24 Range/Units 01:44 02:04 WBC 8.8 (4.8-10.8) X10*3/uL RBC 6.08 H D (4.60-5.80) X10*6/uL Hgb 13.3 L D (14.0-18.0) g/dl Hct 41.1 L D (42.0-52.0) % MCV 67.6 L (80.0-98.0) fL MCH 21.9 L (27.0-33.0) pg MCHC 32.4 (31.0-36.0) g/dl RDW 22.4 H (11.0-16.0) % Plt Count 349 (160-400) X10*3/uL MPV 9.5 (9.4-12.4) fL Immature Gran % (Auto) 0.2 (0.0-0.4) % Neut % (Auto) 80.7 H (45-73) % Lymph % (Auto) 11.9 L (20-40) % [place] % (Auto) 6.6 (2-11) % Eos % (Auto) 0.3 (0-4) % Baso % (Auto) 0.3 (0-2) % Lymph # (Auto) 1.1 L (1.2-4.9) X10*3/uL [place] # (Auto) 0.6 (0.1-1.2) X10*3/uL Eos # (Auto) 0.0 (0.0-0.4) X10*3/uL Baso # (Auto) 0.0 (0.0-0.2) X10*3/uL Abs Immat Gran (auto) 0.02 (0.00-0.03) X10*3/uL Absolute Neuts (auto) 7.1 (2.0-8.3) x10*3/uL Absolute Nucleated RBC 0.000 (0.0-0.012) X10*3/uL Nucleated RBC % (auto) 0.0 (0.0-0.2) /100WBC Sodium 137 (135-145) mmol/L Potassium 4.7 D (3.3-5.1) mmol/L Chloride 103 (96-108) mmol/L Carbon Dioxide 21 L (22-29) mmol/L Anion Gap 18 (12-20) BUN 15 (9-16) mg/dL Creatinine 1.41 H (0.5-1.4) mg/dL Estim Creat Clear Calc 52.9 Estimated GFR 53 POC Glucose 360 H* (60-115) mg/dL Random Glucose 365 H* (60-115) mg/dL Calcium 9.2 D (8.4-10.2) mg/dL Total Bilirubin 0.3 (0.0-1.0) mg/dL AST 19 (5-37) U/L ALT 15 (0-40) U/L Alkaline Phosphatase 109 (39-117) U/L Total Creatine Kinase 46 (38-174) U/L Troponin I High Sens 8.4 D (<3.5-35.0) ng/L B-Natriuretic Peptide 276 H (<100) pg/mL Total Protein 7.1 (6.5-8.0) g/dL Albumin 3.8 (3.5-5.0) g/dL Lipase 28 (8-78) U/L Independent Interpretation I performed an independent interpretation of an: EKG and Plain X-Ray (normal ) Interpretation: Rate: 54 Rhythm: sinus bradycardia [place]: normal Normal P waves. Normal PHYLLIS. Normal QRS complex. ST T wave : normal no JERRY qTC: 434 prior studies: no acute ischemia The study has been interpreted contemporaneously by me. . Radiology Impression Discussion of test interpretation with radiology: I have reviewed the radiologist's reading. Independent Historian Clinical information obtained from an independent historian. History obtained from or confirmed by: EMS External Record Review External record reviewed: Office record Discharge Plan Discharge Clinical Impression: Acute hyperglycemia, Weakness, Grief reaction Patient Disposition: Home, Self-Care Instructions: Grief and Loss (ED), Weakness (ED), Diabetic Hyperglycemia (ED) Additional Instructions: start using your insulin pump today your labs looked good - Cr 1.4, no anemia, CHF tests at your baseline chest xray was normal please return for any worsening symptoms or concerns consider therapy to help you with your grief Prescriptions: No Action hydralazine 100 mg tablet 100 mg PO TID 30 Days Qty: 90 5RF sucralfate 1 gram Tablet 1 g PO QIDACHS Qty: 120 0RF trazodone 50 mg tablet 100 mg PO BEDTIME escitalopram oxalate 10 mg tablet 10 mg PO DAILY atorvastatin 40 mg tablet 40 mg PO DAILY gabapentin 300 mg capsule 300 mg PO TID metoprolol succinate 100 mg tablet extended release 24 hr 100 mg PO DAILY magnesium oxide 400 mg (241.3 mg magnesium) Tablet 400 mg PO BIDPC Qty: 60 0RF fluticasone propion-salmeterol [Advair Diskus] 250-50 mcg/dose blister with device 1 ea inhalation BID amlodipine 5 mg tablet 10 mg PO DAILY diclofenac sodium 1 % gel 1 g TOPICAL QID PRN (Reason: Pain) Rx Instructions: left chest wall nicotine [Nicoderm CQ] 14 mg/24 hr patch 24 hour 1 patch transdermal Q24H Qty: 28 0RF omeprazole 40 mg capsule,delayed release(DR/EC) 40 mg PO DAILY@0630 fluticasone propionate 50 mcg/actuation [place],Suspension 1 spray intranasal BID Qty: 16 0RF furosemide 40 mg tablet 80 mg PO DAILY Rx Instructions: IN THE MORNING furosemide 40 mg tablet 40 mg PO BEDTIME albuterol sulfate 90 mcg/actuation HFA aerosol inhaler 2 puff inhalation Q4H PRN (Reason: bronchospasm) insulin lispro 100 unit/mL solution 1 sliding scale dose subcut TIDAC Rx Instructions: USES IN INSULIN PUMP (DME) Omnipod 5 G6 Intro Kit (Gen 5) Cartridge SUBCUT isosorbide mononitrate 30 mg Tablet Extended Release 24 Hr 30 mg PO DAILY Qty: 90 0RF Protocol: Hold for SBP< HOLD for SBP < : 90 ascorbic acid (vitamin C) 250 mg Tablet 250 mg PO DAILY Qty: 30 0RF folic acid 1 mg Tablet 1 mg PO DAILY Qty: 30 0RF ferrous sulfate 324 mg (65 mg iron) Tablet,Delayed Release (Dr/Ec) 324 mg PO DAILY Qty: 30 0RF thiamine mononitrate (vit B1) 100 mg Tablet 100 mg PO DAILY Qty: 30 0RF aspirin 81 mg tablet,delayed release (DR/EC) 81 mg PO DAILY Referrals: [facility] [Outside] (therapy) Print Language: Slovak
[2024-09-25 02:10] LABS: MANUAL DIFF FLAG NO
[2024-09-25 02:14] LABS: Basophils Percent Auto 0.3 % (0-2); Eosinophils Percent Auto 0.3 % (0-4); Hematocrit 41.1 % (42.0-52.0); Hemoglobin 13.3 g/dl (14.0-18.0); Imm Gran Abs Auto 0.02 X10*3/uL (0.00-0.03); Imm Gran Pct Auto 0.2 % (0.0-0.4); Lymphocytes Absolute Auto 1.1 X10*3/uL (1.2-4.9); Lymphocytes Percent Auto 11.9 % (20-40); Mean Corpuscular HGB Conc 32.4 g/dl (31.0-36.0); Mean Corpuscular Hemoglobin 21.9 pg (27.0-33.0); Mean Corpuscular Volume 67.6 fL (80.0-98.0); Mean Platelet Volume 9.5 fL (9.4-12.4); Monocytes Absolute Auto 0.6 X10*3/uL (0.1-1.2); Monocytes Percent Auto 6.6 % (2-11); Neutrophils Absolute Auto 7.1 x10*3/uL (2.0-8.3); Neutrophils Percent Auto 80.7 % (45-73); Platelet Count 349 X10*3/uL (160-400); Red Blood Count 6.08 X10*6/uL (4.60-5.80); Red Cell Distribution Width 22.4 % (11.0-16.0); White Blood Count 8.8 X10*3/uL (4.8-10.8)
[2024-09-25 02:31] LABS: Troponin-I High Sensitivity 8.4 ng/L (<3.5-35.0)
[2024-09-25] MEDS: Insulin Regular, Human 100 UNIT/ML 10 ML VIAL IVPUSH (02:31)
[2024-09-25 02:35] LABS: Alanine Aminotransferase 15 U/L (0-40); Albumin Level 3.8 g/dL (3.5-5.0); Anion Gap 18 (12-20); Aspartate Amino Transferase 19 U/L (5-37); Bilirubin Total 0.3 mg/dL (0.0-1.0); Blood Urea Nitrogen 15 mg/dL (9-16); Calcium 9.2 mg/dL (8.4-10.2); Carbon Dioxide 21 mmol/L (22-29); Chloride 103 mmol/L (96-108); Creatinine Clr Calc Pharmacy 52.9; Estimated Glomerular Filt Rate 53; Glucose Random 365 mg/dL (60-115); Lipase 28 U/L (8-78); Potassium 4.7 mmol/L (3.3-5.1); Sodium 137 mmol/L (135-145); Total Protein 7.1 g/dL (6.5-8.0)
[2024-09-25 02:36] LABS: Alkaline Phosphatase 109 U/L (39-117); B Type Natriuretic Peptide 276 pg/mL (<100)
[2024-09-25 03:15] VITALS: BP 162/76; PULSE 74; RESP 18; TEMP 36.6; O2SAT 100
[2024-09-25 03:19] LABS: Glucose, Whole Blood 213 mg/dL (60-115)
[2024-09-25 04:41] VITALS: BP 149/82; PULSE 82; RESP 16; TEMP 36.9; O2SAT 99
== END 2024-09-25 04:42 | disposition home or self-care (01) ==
PROVIDERS: Emergency Provider Emergency Medicine
DX: E11.65 Type 2 diabetes mellitus with hyperglycemia (principal); R53.1 Weakness; F43.21 Adjustment disorder with depressed mood; R06.02 Shortness of breath; Z72.89 Other problems related to lifestyle; Z63.4 Disappearance and death of family member; E11.22 Type 2 diabetes mellitus with diabetic chronic kidney disease; I13.0 Hypertensive heart and chronic kidney disease with heart failure and stage 1 through stage 4 chronic kidney disease, or unspecified chronic kidney disease; N18.1 Chronic kidney disease, stage 1; I50.33 Acute on chronic diastolic (congestive) heart failure; E78.00 Pure hypercholesterolemia, unspecified; F17.210 Nicotine dependence, cigarettes, uncomplicated; Z96.41 Presence of insulin pump (external) (internal); Z79.82 Long term (current) use of aspirin; Z79.02 Long term (current) use of antithrombotics/antiplatelets; Z79.899 Other long term (current) drug therapy; Z79.4 Long term (current) use of insulin
CPT/HCPCS: 36415; 71045; 80053; 82550; 82947; 83690; 83880; 84484; 85025; 93005; 96374; 99284; 99285

== ENCOUNTER → 2024-09-25 01:50 | Outpatient (BNV) | payer OTHER, SELFPAY | PROVIDERS: Emergency Provider Emergency Medicine; Visit Provider Internal Medicine | DX: R94.31 Abnormal electrocardiogram [ECG] [EKG] (principal) | CPT/HCPCS: 93010 ==

== ENCOUNTER 2024-11-19 15:34 | Inpatient (IN) | payer OTHER, SELFPAY ==
[2024-11-19] VITALS (7 sets, daily range): BP systolic 135–174; BP diastolic 64–83; PULSE 87–125; RESP 18–24; TEMP 36.7–37.2; O2SAT 89–100; BMI 22.5
--- NOTE | ~2024-11-19 | XR_ITS ---
EXAMINATION: XR CHEST CLINICAL INFORMATION: Cough, fever, chest pain, R/O pneumonia COMPARISON: 09/25/2024. TECHNIQUE: AP portable view of the chest was obtained. FINDINGS: Cardiac, hilar, and mediastinal contours are normal. Lungs demonstrate diffuse peribronchial thickening with more confluent opacity in the right midlung highly suspicious for pneumonia. There is no effusion or pneumothorax. No focal osseous or soft tissue abnormality. XR/XR chest 1V IMPRESSION: Diffuse peribronchial thickening suspected, with more confluent segmental opacity in the right midlung highly suggestive of pneumonia. No effusion. Electronically signed by: Bony Ta MD 11/19/2024 05:00 PM [facility]
--- NOTE | ~2024-11-19 | CT_ITS ---
CLINICAL HISTORY: ?pna vs chf CT chest without contrast Comparison: CR/SR - XR CHEST 1V - 11/19/24 16:[address]/SR - CT CHEST WO IV CON - 07/15/24 17:26 EDT Findings: Normal heart,size. No significant pericardial effusion. No thoracic aorta aneurysm. Enlarged 1.4 cm short axis right paratracheal lymph node present. Borderline prominent precarinal lymph node measuring just under 10 mm in maximal short axis dimension. Mildly enlarged 10 mm short axis lymph node present at the AP window. Possible mildly enlarged subcarinal lymph node. No axillary lymphadenopathy by CT size criteria identified. There are small, layering bilateral pleural effusions with interlobular septal thickening and [id number] ground-glass opacities throughout the left lung. Moderate ground-glass opacities are present throughout the right lung. No pneumothorax. Limited view of the upper abdomen is normal. No acute fractures. Impression: 1. Interlobular septal thickening present throughout the bilateral lungs with [id number] left and moderate right ill-defined ground-glass opacities. These findings may be related to pulmonary edema in the appropriate clinical setting. Atypical infection is also a diagnostic consideration. 2. Small, layering bilateral pleural effusions. 3. Mildly enlarged mediastinal lymph nodes. This document has been electronically signed by: Erasmo Marshall MD on 11/19/2024 22:35:29
--- NOTE | 2024-11-19 15:47 | ED_ITS ---
HPI - Chest Pain General Chief Complaint: Dyspnea Stated Complaint: chest pain,sob Time Seen by Provider: 11/19/24 15:45 Source: patient Mode of arrival: EMS Limitations: no limitations History of Present Illness ED Provider: Dr. Didier Iverson HPI narrative: 49-year-old male with a history of acute kidney injury, congestive heart failure, hypertension, depression, COPD, YARELIS, hyperlipidemia, diabetes, peripheral artery disease who presents emergency department for evaluation of chest pain and shortness of breath with symptoms starting at 08:00 hours. Patient states he was having intermittent left anterior and midsternal chest pain. He describes the pain is a sharp/pressure sensation for the last seconds to minutes. He states he was had multiple episodes. The symptoms are worse with coughing with breathing. He states he has had a cough x2 days which is nonproductive. He has shortness of breath at rest and dyspnea on exertion at around 10 ft which is worse than usual. He states that he was had no appetite but he has been drinking fluid. He had subjective fever and chills. He was had rhinorrhea, sore throat, nausea and diarrhea with no vomiting. He states he was had at least 2 episodes of loose diarrheal stool. Related Data Home Medications ?Medication ?Instructions ?Recorded ?Confirmed escitalopram oxalate 10 mg tablet 10 mg PO DAILY 08/01/22 07/22/24 trazodone 50 mg tablet 100 mg PO BEDTIME 08/01/22 07/22/24 aspirin 81 mg tablet,delayed 81 mg PO DAILY 10/06/22 07/22/24 release atorvastatin 40 mg tablet 40 mg PO DAILY 10/06/22 07/22/24 gabapentin 300 mg capsule 300 mg PO TID 10/06/22 07/22/24 metoprolol succinate 100 mg 100 mg PO DAILY 10/06/22 07/22/24 tablet,extended release 24 hr furosemide 40 mg tablet 80 mg PO DAILY 06/26/23 07/22/24 furosemide 40 mg tablet 40 mg PO BEDTIME 11/24/23 07/22/24 fluticasone 250 mcg-salmeterol 50 1 ea inhalation BID 12/22/23 07/22/24 mcg/dose blistr powdr for inhalation (Advair Diskus) albuterol sulfate 90 mcg/actuation 2 puff inhalation Q4H PRN 04/26/24 07/22/24 aerosol inhaler bronchospasm insulin lispro 100 unit/mL 1 sliding scale dose subcut TIDAC 04/26/24 07/22/24 subcutaneous solution amlodipine 5 mg tablet 10 mg PO DAILY 06/02/24 07/22/24 diclofenac sodium 1 % topical gel 1 g topical QID PRN Pain 06/02/24 07/22/24 insulin pump cartridge,automated 06/11/24 07/22/24 dose,BT with controller subcutaneous (Omnipod 5 G6 Intro Kit (Gen 5) subcutaneous cartridge with controller) omeprazole 40 mg capsule,delayed 40 mg PO DAILY@0630 07/15/24 07/22/24 release Previous Rx's ?Medication ?Instructions ?Recorded magnesium oxide 400 mg (241.3 mg 400 mg PO BIDPC #60 tabs 08/20/22 magnesium) tablet sucralfate 1 gram tablet 1 g PO QIDACHS #120 tabs 09/10/22 hydralazine 100 mg tablet 100 mg PO TID 30 days #90 tabs 05/09/23 nicotine 14 mg/24 hr daily 1 patch transdermal Q24H #28 ea 06/09/24 transdermal patch (Nicoderm CQ) ascorbic acid (vitamin C) 250 mg 250 mg PO DAILY #30 tabs 06/19/24 tablet ferrous sulfate 324 mg (65 mg 324 mg PO DAILY #30 tabs 06/19/24 iron) tablet,delayed release folic acid 1 mg tablet 1 mg PO DAILY #30 tabs 06/19/24 isosorbide mononitrate 30 mg 30 mg PO DAILY #90 tabs 06/19/24 tablet,extended release 24 hr thiamine mononitrate (vit B1) 100 100 mg PO DAILY #30 tabs 06/19/24 mg tablet fluticasone propionate 50 1 spray intranasal BID #16 grams 07/19/24 mcg/actuation nasal spray,suspension Allergies Allergy/AdvReac Type Severity Reaction Status Date / Time dulaglutide [From [facility]] Allergy Unknown Verified 11/19/24 15:48 metformin [METFORMIN] AdvReac Mild DIARRHEA, Verified 11/19/24 15:48 nausea and vomiting Review of Systems 2 Review of Systems: Yes all other systems are reviewed and are negative [facility] Past Medical History [facility] Narrative: Social history: Patient smokes 10 cigarettes per day times 33 years. Patient drinks alcohol occasionally with his last drink 4 days prior. Denies drug use. Medical History KELVIN (acute kidney injury) Congestive heart failure Hypertension Chronic heart failure with preserved ejection fraction (HFpEF) Acute respiratory failure with hypoxia Congestive heart failure CKD (chronic kidney disease) stage 1, GFR 90 ml/min or greater Depression COPD exacerbation YARELIS (obstructive sleep apnea) CHF exacerbation Hypoxia Acute respiratory failure Uncontrolled hypertension Acute on chronic diastolic (congestive) heart failure Acute on chronic anemia Hyperglycemia due to type 2 diabetes mellitus YARELIS (obstructive sleep apnea) Congestive heart failure Anxiety HLD (hyperlipidemia) Diabetes Hypercholesteremia HTN (hypertension) Asthma PAD (peripheral artery disease) Surgical History History of esophagogastroduodenoscopy S/P angiogram of extremity Family History Family History Father Alzheimer disease CAD (coronary artery disease) Social History Social History Household Members: Family Household Members Other:: 4 Housing: Apartment Do you presently have visiting nurse or other home services: Yes ([facility] for housing help and meals) Unable to assess alcohol history related to: Unknown Alcohol intake: current Alcohol intake frequency: a few times a week Alcohol type: hard liquor Comment: pt is independent in room Patient Tobacco Use Status: Current everyday Tobacco user Tobacco use type: Cigarette Cigarette Packs Per Day: 1 Cigarettes Per Day: 20.0 Years Smoked: 35 Smoked in Last 30 Days: No e-Cigarette/Vaping Use: Never Used Second Hand Smoke Exposure: Yes Use of substances other than those prescribed or required for medical reasons: Yes Substance Use Type: Marijuana Substance Use Frequency: Chronic Longstanding Advance Directives: Yes Advance Directives on File: Yes Advance Directives Date on File: 06/21/21 service: No Current occupational status: disabled Physical Exam 2 Vital Signs: Vital Signs: Last Vital Signs Temp 98.1 F 11/19/24 18:41 Pulse 87 11/19/24 19:51 Resp 20 11/19/24 19:51 BP 153/75 H 11/19/24 18:41 Pulse Ox 92 11/19/24 18:41 O2 Del Method Room Air 11/19/24 18:41 BMI result Body Mass Index 22.5 Exam: General: Awake, alert in no distress Head: Normocephalic, atraumatic EENT: PERRL, Lids normal, sclera normal, conjunctiva normal, nose normal , ears normal, throat without erythema or exudates Neck: Supple, no adenopathy Lung: breath sounds symmetric, no wheezing, rales or rhonchi Chest: symmetric movement, nontender Heart: regular rate and rhythm, normal S1, S2 no murmurs or rubs Abdomen: soft, non-tender, nondistended, normal bowel sounds Back: no vertebral tenderness, no CVAT Extremities: no deformities, moves all extremities symmetrically Neuro: Awake, alert, oriented, normal speech, cranial nerves intact, moves all extremities symmetrically Psych: Pleasant, cooperative Medications Administered Discontinued Medications Generic Name Dose Route Start Last Admin Trade Name Freq PRN Reason Stop Dose Admin Albuterol Sulfate 7.5 mg/ 10 mg 11/19/24 19:45 11/19/24 19:49 Albuterol Sulfate 2.5 mg INHALE 11/19/24 19:46 10 mg ONCE ONE Administration Sodium Chloride 1,000 mls @ 999 mls/hr 11/19/24 16:01 11/19/24 18:03 Ns IV 11/19/24 17:01 Infused .Q1H1M STA Infusion Ketorolac Tromethamine 15 mg 11/19/24 16:01 11/19/24 16:06 Ketorolac Tromethamine 15 Mg/Ml Vial IVPUSH 11/19/24 16:02 15 mg ONCE STA Administration Ondansetron HCl 4 mg 11/19/24 16:01 11/19/24 16:07 Ondansetron Hcl 4 Mg/2 Ml Vial IVPUSH 11/19/24 16:02 4 mg ONCE ONE Administration Medical Decision Making Medical Decision Making MDM Narrative: 49-year-old male with a history of acute kidney injury, congestive heart failure, hypertension, depression, COPD, YARELIS, hyperlipidemia, diabetes, peripheral artery disease who presents emergency department for evaluation of chest pain and shortness of breath with symptoms starting at 08:00 hours. Patient states he was having intermittent left anterior and midsternal sharp/pressure-like chest pain lasting seconds to minutes, worsening dyspnea on exertion, subjective fever, chills, rhinorrhea, sore throat. Patient states that he was also had poor appetite but has been drinking fluids. 20:15 hours Differential diagnosis: ?Includes but is not limited to viral syndrome, COVID- 19, influenza, RSV, myocardial infarction, myocardial ischemia, costochondritis, pneumonia, electrolyte abnormalities, anemia Course: 20:15 My interpretation patient's laboratory evaluation is as follows: WBC elevated 17,600-chronic. Microcytic anemia with an H&H of 9.7 and 29.6 with an MCV of 74.7-chronic. Chloride elevated 110. Bicarb low 15. BUN elevated 17 with a normal creatinine. Glucose elevated 323. BNP is elevated 858. Lactic acid was elevated at 3.8. COVID-19, influenza and RSV tests were negative. BNP elevated 858. Chest x-ray is concerning for right-sided infiltrate/pneumonia. Given this finding in the elevated lactic acid the patient was treated with ceftriaxone 1 g IV, azithromycin 500 mg IV and 30 cc/kilogram normal saline bolus. Patient was also given Solu-Medrol 125 mg IV and I ordered the bronchodilator protocol and was treated with albuterol 10 mg nebulized. Patient was on 3-4 L of oxygen via nasal cannula at night and was evaluated by respiratory therapy healing increased his oxygen to 5 L by nasal cannula. I did discuss the patient's presentation with the covering hospitalist, Dr. John and the patient will be admitted for further treatment of his pneumonia. Admission/Observation Consideration of admission/observation: Escalation of care including admission/observation considered (Yes) Consult Healthcare Provider Management of the patient was discussed with: Hospitalist Lab Data MDM Lab Attestation statement: I reviewed the patient's lab results. 11/19/24 16:18 11/19/24 16:19 Labs: Lab Results 11/19/24 11/19/24 11/19/24 Range/Units 16:11 16:18 16:19 WBC 17.6 H (4.8-10.8) X10*3/uL RBC 3.96 L D (4.60-5.80) X10*6/uL Hgb 9.7 L D (14.0-18.0) g/dl Hct 29.6 L D (42.0-52.0) % MCV 74.7 L (80.0-98.0) fL MCH 24.5 L (27.0-33.0) pg MCHC 32.8 (31.0-36.0) g/dl RDW 23.9 H (11.0-16.0) % Plt Count 350 (160-400) X10*3/uL MPV 9.7 (9.4-12.4) fL Immature Gran % (Auto) 0.6 H (0.0-0.4) % Neut % (Auto) 87.5 H (45-73) % Lymph % (Auto) 4.4 L (20-40) % Hinds % (Auto) 7.1 (2-11) % Eos % (Auto) 0.1 (0-4) % Baso % (Auto) 0.3 (0-2) % Lymph # (Auto) 0.8 L (1.2-4.9) X10*3/uL Hinds # (Auto) 1.2 (0.1-1.2) X10*3/uL Eos # (Auto) 0.0 (0.0-0.4) X10*3/uL Baso # (Auto) 0.1 (0.0-0.2) X10*3/uL Abs Immat Gran (auto) 0.11 H (0.00-0.03) X10*3/uL Absolute Neuts (auto) 15.4 H (2.0-8.3) x10*3/uL Absolute Nucleated RBC 0.000 (0.0-0.012) X10*3/uL Nucleated RBC % (auto) 0.0 (0.0-0.2) /100WBC APTT 29.8 (26.0-36.8) SEC Sodium 139 (135-145) mmol/L Potassium 4.0 (3.3-5.1) mmol/L Chloride 110 H (96-108) mmol/L Carbon Dioxide 15 L (22-29) mmol/L Anion Gap 18 (12-20) BUN 17 H (9-16) mg/dL Creatinine 1.02 (0.5-1.4) mg/dL Estim Creat Clear Calc 75.0 Estimated GFR > 60 Random Glucose 323 H (60-115) mg/dL Lactic Acid (0.5-2.0) mmol/L Calcium 8.2 L D (8.4-10.2) mg/dL Total Bilirubin 0.6 (0.0-1.0) mg/dL AST 15 (5-37) U/L ALT < 6 (0-40) U/L Alkaline Phosphatase 91 (39-117) U/L Troponin I High Sens 16.7 D (<3.5-35.0) ng/L B-Natriuretic Peptide 858 H (<100) pg/mL Total Protein 6.5 (6.5-8.0) g/dL Albumin 3.1 L (3.5-5.0) g/dL Lipase 22 (8-78) U/L Influenza Type A (PCR) NEGATIVE (Negative) Influenza Type B (PCR) NEGATIVE (Negative) RSV RNA Qual (PCR) NEGATIVE (Negative) SARS-CoV-2 RNA (RT-PCR) NEGATIVE (Negative) 11/19/24 Range/Units 19:41 WBC (4.8-10.8) X10*3/uL RBC (4.60-5.80) X10*6/uL Hgb (14.0-18.0) g/dl Hct (42.0-52.0) % MCV (80.0-98.0) fL MCH (27.0-33.0) pg MCHC (31.0-36.0) g/dl RDW (11.0-16.0) % Plt Count (160-400) X10*3/uL MPV (9.4-12.4) fL Immature Gran % (Auto) (0.0-0.4) % Neut % (Auto) (45-73) % Lymph % (Auto) (20-40) % Hinds % (Auto) (2-11) % Eos % (Auto) (0-4) % Baso % (Auto) (0-2) % Lymph # (Auto) (1.2-4.9) X10*3/uL Hinds # (Auto) (0.1-1.2) X10*3/uL Eos # (Auto) (0.0-0.4) X10*3/uL Baso # (Auto) (0.0-0.2) X10*3/uL Abs Immat Gran (auto) (0.00-0.03) X10*3/uL Absolute Neuts (auto) (2.0-8.3) x10*3/uL Absolute Nucleated RBC (0.0-0.012) X10*3/uL Nucleated RBC % (auto) (0.0-0.2) /100WBC APTT (26.0-36.8) SEC Sodium (135-145) mmol/L Potassium (3.3-5.1) mmol/L Chloride (96-108) mmol/L Carbon Dioxide (22-29) mmol/L Anion Gap (12-20) BUN (9-16) mg/dL Creatinine (0.5-1.4) mg/dL Estim Creat Clear Calc Estimated GFR Random Glucose (60-115) mg/dL Lactic Acid 3.8 H* (0.5-2.0) mmol/L Calcium (8.4-10.2) mg/dL Total Bilirubin (0.0-1.0) mg/dL AST (5-37) U/L ALT (0-40) U/L Alkaline Phosphatase (39-117) U/L Troponin I High Sens (<3.5-35.0) ng/L B-Natriuretic Peptide (<100) pg/mL Total Protein (6.5-8.0) g/dL Albumin (3.5-5.0) g/dL Lipase (8-78) U/L Influenza Type A (PCR) (Negative) Influenza Type B (PCR) (Negative) RSV RNA Qual (PCR) (Negative) SARS-CoV-2 RNA (RT-PCR) (Negative) Independent Interpretation I performed an independent interpretation of an: Plain X-Ray Interpretation: My interpretation patient's one-view chest x-ray is as follows: Right-sided infiltrate Radiology Impression Discussion of test interpretation with radiology: I have reviewed the radiologist's reading. Radiologist Impression: XR chest 1V IMPRESSION: Diffuse peribronchial thickening suspected, with more confluent segmental opacity in the right midlung highly suggestive of pneumonia. No effusion. Electronically signed by: Bony Ta MD 11/19/2024 05:00 PM [facility] [place] [place] Dictated By: Bony Ta MD External Record Review External record reviewed: Inpatient record Chronic Conditions Patient?s care impacted by: Other (COPD) Critical Care Time Critical Care Time Critical Care Time: Yes Total Critical Care Time: 45 Attestation: Critical Care: The patient was critically ill with a high probability of imminent or life threatening deterioration. I spent greater than 30 minutes of discontinuous time evaluating the patient,delivering critical care at the bedside, discussing and evaluating pertinent data with consultants. Critical care time does not include time spent performing separately billable procedures or teaching. Total time spent performing critical care was 45 minutes. Discharge Plan Discharge Prescriptions: No Action hydralazine 100 mg tablet 100 mg PO TID 30 Days Qty: 90 5RF sucralfate 1 gram Tablet 1 g PO QIDACHS Qty: 120 0RF trazodone 50 mg tablet 100 mg PO BEDTIME escitalopram oxalate 10 mg tablet 10 mg PO DAILY atorvastatin 40 mg tablet 40 mg PO DAILY gabapentin 300 mg capsule 300 mg PO TID metoprolol succinate 100 mg tablet extended release 24 hr 100 mg PO DAILY magnesium oxide 400 mg (241.3 mg magnesium) Tablet 400 mg PO BIDPC Qty: 60 0RF fluticasone propion-salmeterol [Advair Diskus] 250-50 mcg/dose blister with device 1 ea inhalation BID amlodipine 5 mg tablet 10 mg PO DAILY diclofenac sodium 1 % gel 1 g TOPICAL QID PRN (Reason: Pain) Rx Instructions: left chest wall nicotine [Nicoderm CQ] 14 mg/24 hr patch 24 hour 1 patch transdermal Q24H Qty: 28 0RF omeprazole 40 mg capsule,delayed release(DR/EC) 40 mg PO DAILY@0630 fluticasone propionate 50 mcg/actuation Boring,Suspension 1 spray intranasal BID Qty: 16 0RF furosemide 40 mg tablet 80 mg PO DAILY Rx Instructions: IN THE MORNING furosemide 40 mg tablet 40 mg PO BEDTIME albuterol sulfate 90 mcg/actuation HFA aerosol inhaler 2 puff inhalation Q4H PRN (Reason: bronchospasm) insulin lispro 100 unit/mL solution 1 sliding scale dose subcut TIDAC Rx Instructions: USES IN INSULIN PUMP (DME) Omnipod 5 G6 Intro Kit (Gen 5) Cartridge SUBCUT isosorbide mononitrate 30 mg Tablet Extended Release 24 Hr 30 mg PO DAILY Qty: 90 0RF Protocol: Hold for SBP< HOLD for SBP < : 90 ascorbic acid (vitamin C) 250 mg Tablet 250 mg PO DAILY Qty: 30 0RF folic acid 1 mg Tablet 1 mg PO DAILY Qty: 30 0RF ferrous sulfate 324 mg (65 mg iron) Tablet,Delayed Release (Dr/Ec) 324 mg PO DAILY Qty: 30 0RF thiamine mononitrate (vit B1) 100 mg Tablet 100 mg PO DAILY Qty: 30 0RF aspirin 81 mg tablet,delayed release (DR/EC) 81 mg PO DAILY Print Language: Malagasy
[2024-11-19] MEDS: Ketorolac Tromethamine 15 MG/ML VIAL IVPUSH (16:06)
[2024-11-19] MEDS: 0.9 % Sodium Chloride 1,000 ML 999 ML IV (16:07)
[2024-11-19] MEDS: ondansetron HCL 4 MG/2 ML VIAL IVPUSH (16:07)
[2024-11-19 16:22] LABS: MANUAL DIFF FLAG NO
[2024-11-19 16:30] LABS: Basophils Absolute Auto 0.1 X10*3/uL (0.0-0.2); Basophils Percent Auto 0.3 % (0-2); Eosinophils Percent Auto 0.1 % (0-4); Hematocrit 29.6 % (42.0-52.0); Hemoglobin 9.7 g/dl (14.0-18.0); Imm Gran Abs Auto 0.11 X10*3/uL (0.00-0.03); Imm Gran Pct Auto 0.6 % (0.0-0.4); Lymphocytes Absolute Auto 0.8 X10*3/uL (1.2-4.9); Lymphocytes Percent Auto 4.4 % (20-40); Mean Corpuscular HGB Conc 32.8 g/dl (31.0-36.0); Mean Corpuscular Hemoglobin 24.5 pg (27.0-33.0); Mean Corpuscular Volume 74.7 fL (80.0-98.0); Mean Platelet Volume 9.7 fL (9.4-12.4); Monocytes Absolute Auto 1.2 X10*3/uL (0.1-1.2); Monocytes Percent Auto 7.1 % (2-11); Neutrophils Absolute Auto 15.4 x10*3/uL (2.0-8.3); Neutrophils Percent Auto 87.5 % (45-73); Platelet Count 350 X10*3/uL (160-400); Red Blood Count 3.96 X10*6/uL (4.60-5.80); Red Cell Distribution Width 23.9 % (11.0-16.0); White Blood Count 17.6 X10*3/uL (4.8-10.8)
[2024-11-19 16:40] LABS: Partial Thromboplastin Time 29.8 SEC (26.0-36.8)
[2024-11-19 16:43] LABS: Alanine Aminotransferase < 6 U/L (0-40); Albumin Level 3.1 g/dL (3.5-5.0); Alkaline Phosphatase 91 U/L (39-117); Anion Gap 18 (12-20); Aspartate Amino Transferase 15 U/L (5-37); Bilirubin Total 0.6 mg/dL (0.0-1.0); Blood Urea Nitrogen 17 mg/dL (9-16); Calcium 8.2 mg/dL (8.4-10.2); Carbon Dioxide 15 mmol/L (22-29); Chloride 110 mmol/L (96-108); Estimated Glomerular Filt Rate > 60; Glucose Random 323 mg/dL (60-115); Lipase 22 U/L (8-78); Sodium 139 mmol/L (135-145); Total Protein 6.5 g/dL (6.5-8.0); Troponin-I High Sensitivity 16.7 ng/L (<3.5-35.0)
[2024-11-19 16:54] LABS: Influenza A PCR NEGATIVE (Negative); Influenza B PCR NEGATIVE (Negative); Resp Syncy Virus RNA Qual PCR NEGATIVE (Negative); SARS COV2 PCR INHOUSE NEGATIVE (Negative)
--- OUTSIDE RECORDS SUMMARY | 2024-11-19 18:02 | XMS_ITS | Clinical Summary ---
Author Organization [facility] Address [address] [place] [address] Care Team Providers Care Blueprint Reader Name Role Phone Zari Henry MD Primary Care Provider [phone] Allergies Active Allergy Reactions Criticality Noted Date Comments Metformin 02/24/2022 Dulaglutide 02/24/2022 Medications Medication Sig Dispensed Refills Start Date End Date Status amLODIPine (NORVASC) tablet 5 mg Take 1 tablet (5 mg total) by mouth daily. 0 11/02/2021 Active aspirin 81 MG EC tablet Take 1 tablet (81 mg total) by mouth daily. 0 12/23/2020 Active atorvastatin (LIPITOR) tablet 40 mg Take 1 tablet (40 mg total) by mouth daily. 0 11/02/2021 Active escitalopram (LEXAPRO) tablet 10 mg Take 1 tablet (10 mg total) by mouth daily. 0 01/05/2022 Active gabapentin (NEURONTIN) 300 MG capsule Take 1 capsule (300 mg total) by mouth 3 (three) times a day. 0 11/02/2021 Active lisinopril (PRINIVIL,ZESTRIL) tablet 40 mg Take 1 tablet (40 mg total) by mouth daily. 0 11/02/2021 Active metoprolol succinate (TOPROL-XL) 24 hr tablet 100 mg Take 1 tablet (100 mg total) by mouth daily. 0 11/02/2021 Active nicotine (Nicotrol) 10 MG inhaler INHALE 1 PUFF INTO THE LUNGS NEEDED FOR SMOKING CESSATION EVERY 2 HOURS. 0 07/16/2021 Active omeprazole (PriLOSEC) 40 MG capsule Take 1 capsule (40 mg total) by mouth daily. 0 08/17/2021 Active tadalafil (CIALIS) 20 MG tablet Take 1 tablet (20 mg total) by mouth. 0 06/08/2020 Active Anoro Ellipta 62.5-25 MCG/INH AEPB 0 12/13/2021 Active furosemide (LASIX) 20 MG tabletIndications:2 in AM and 1 in PM Take 1 tablet (20 mg total) by mouth. 0 Active sucralfate (CARAFATE) 1 g tablet Take 1 tablet (1 g total) by mouth 4 (four) times a day. 0 Active Active Problems Problem Noted Date Diagnosed Date History of pancreatitis 02/15/2022 Sleep related hypoxia 08/17/2021 Overview: On oxygen at nighttime Polycythemia 06/04/2018 Tobacco use 02/20/2018 Anxiety 08/01/2017 Depression 01/31/2017 HTN (hypertension), benign 01/31/2017 Type 2 diabetes mellitus 01/31/2017 Social History Tobacco Use Types Packs/Day Years Used Date Smoking Tobacco: Every Day Cigarettes 0.3 Smokeless Tobacco: Never Alcohol Use Standard Drinks/Week Comments Yes 0 (1 standard drink = 0.6 oz pur e alcohol) occasional Sex and Gender Information Value Date Recorded Sex Assigned at Not on file Gender Identity Not on file Sexual Orientation Not on file Job Start Date Occupation Industry Not on file Not on file Not on file Last Filed Vital Signs Vital Sign Reading Time Taken Comments Blood Pressure 134/66 07/11/2024 11:39 AM EDT Pulse 78 07/11/2024 11:39 AM EDT Temperature 36.6 ??C (97.8 ??F) 07/11/2024 11:39 AM E DT Respiratory Rate - - Oxygen Saturation 97% 07/11/2024 11:39 AM EDT Inhaled Oxygen Concentration - - Weight 67.1 kg (148 lb) 07/11/2024 11:39 AM EDT Height 165.1 cm (5' 5 ) 11/30/2023 11:10 AM EST Body Mass Index 24.63 11/30/2023 11:10 AM EST Plan of Treatment Health Maintenance Due Date Last Done Comments Hepatitis B Vaccines (1 of 3 - 3-dose series) 1974 Hepatitis C Screening 1974 COVID-19 Vaccine (#1) 01/06/1975 Depression Screening 1986 Preventative Health Evaluation 1992 DTap / Tdap / Td (1 - Tdap) 05/18/2019 05/17/2019 Colon Cancer Screening (Colonoscopy) 2019 Pneumococcal Vaccine (2 of 2 - PPSV23 or PCV20) 12/03/2019 10/08/2019 Influenza Vaccine (#1) 2024 2, 07/22/2022, 07/16/2021, Additional history exists Shingrix-Zoster Vaccine (1 of 2) 2024 RSV Ped < 20 months Aged Out No longe r eligible based on patient's age to complete this topic Care Teams Blueprint Reader Relationship Specialty Start Date End Date Zari Henry MD PCP - General Internal Medicine 01/21/22
--- OUTSIDE RECORDS SUMMARY | 2024-11-19 18:02 | XMS_ITS | Clinical Summary ---
Author Organization [facility] [employer] Address [address] [place] [address] Phone Care Team Providers Care It Security Manager Name Role Phone Zari Henry MD Primary Care Provider [phone] Allergies Active Allergy Reactions Criticality Noted Date Comments Dulaglutide Nausea And Vomiting 06/22/2021 Metformin 07/04/2017 Gi distress Medications Medication Sig Dispensed Refills Start Date End Date Status umeclidinium-kenny anteroL (ANORO ELLIPTA) 62.5-25 mcg/actuation inhaler 12/13/2021 Active aspirin 81 mg EC tablet Take 1 tablet (81 mg total) by mouth 1 (one) time each day. 12/23/2020 Active escitalopram (LEXAPRO) 10 mg tablet Take 1 tablet (10 mg total) by mouth 1 (one) time each day. 01/05/2022 Active furosemide (LASIX) 20 mg tablet Take 1 tablet (20 mg total) by mouth. Active gabapentin (NEURONTIN) 300 mg capsule Take 1 capsule (300 mg total) by mouth 3 (three) times a day. 11/02/2021 Active lisinopril (PRINIVIL,ZESTRI L) 40 mg tablet Take 1 tablet (40 mg total) by mouth 1 (one) time each day. 11/02/2021 Active metoprolol succinate (TOPROL-XL) 100 mg 24 hr tablet Take 1 tablet (100 mg total) by mouth 1 (one) time each day. 11/02/2021 Active nicotine (Nicotrol) 10 mg inhaler INHALE 1 PUFF INTO THE LUNGS NEEDED FOR SMOKING CESSATION EVERY 2 HOURS. 07/16/2021 Active omeprazole (PriLOSEC) [address] capsule Take 1 capsule (40 mg total) by mouth 1 (one) time each day. 08/17/2021 Active sucralfate (CARAFATE) 1 gram tablet Take 1 Tablet by mouth 4 times daily. 05/15/2024 Active tadalafiL (CIALIS) 20 mg tablet Take 1 tablet (20 mg total) by mouth. 06/08/2020 Active atorvastatin (LIPITOR) 40 mg tablet TAKE 1 TABLET BY MOUTH EVERY DAY 90 tablet 1 11/07/2024 Active insulin pump cart,cont inf,BT (Omnipod Dash Pods, Gen 4,) cartridge Inject 1 each under the skin every 3 (three) days. 10 each 3 09/12/2024 Active Ventolin HFA 90 mcg/actuation inhaler INHALE 2 PUFFS INTO THE LUNGS EVERY 4 HOURS NEEDED FOR WHEEZING FOR UP TO 30 DAYS. 18 each 2 09/25/2024 Active amLODIPine (NORVASC) 5 mg tablet Take 2 tablets (10 mg total) by mouth 1 (one) time each day. 30 tablet 10/29/2024 Active amLODIPine (NORVASC) 5 mg tablet Take 1 tablet (5 mg total) by mouth 1 (one) time each day. 11/02/2021 10/29/2024 Discontinued atorvastatin (LIPITOR) 40 mg tablet Take 1 tablet (40 mg total) by mouth 1 (one) time each day. 11/02/2021 11/07/2024 Discontinued Active Problems Problem Noted Date Diagnosed Date Sleep related hypoxia 08/17/2021 Overview (07/12/2024): On oxygen at nighttime Polycythemia 06/04/2018 Anxiety 08/01/2017 Depression 01/31/2017 HTN (hypertension), benign 01/31/2017 Type 2 diabetes mellitus 01/31/2017 Encounters Date Type Department Care Team Description 11/12/2024 Telephone [facility] Hematology Oncology [address] [place] [phone] Moe Fernandes MD 09/20/2024 Telephone Endocrinology - [place] [address] [place] [phone] Lea Alex PA PRIOR AUTHORIZATION 09/20/2024 Telephone [facility] Hematology Oncology [address] [place] [phone] Moe Fernandes MD 09/19/2024 Telephone [facility] Cardiology [facility] [address] [place] [phone] Nadege Garcia NP No Call No Show (Letter sent.) 09/12/2024 Telephone Endocrinology - [place] [address] [place] [phone] Lea Alex PA insurance approval 09/06/2024 2:45 PM EST Office Visit Pulmonolgy - [place] [address] [facility] [address] [place] [phone] Nisa Machado MD Chronic obstructive pulmonary disease, unspecified COPD type (CMS/HCC) (Primary Dx); Diastolic congestive heart failure, unspecified HF chronicity (CMS/HCC) from Last 3 Months Surgical History Surgery Date Site/Laterality Comments UPPER GASTROINTESTINAL ENDOSCOPY 08/07/2018 PROCEDURE: [place] UPPER GI ENDOSCOPY PERFORMED; COMMENT: Mid esophageal biopsies: fungal esophagitis. Medical History Medical History Date Comments Depression 01/31/2017 DX:Depression HTN (hypertension), benign 01/31/2017 DX:HT N (hypertension), benign Hyperlipidemia LDL goal <100 01/31/2017 DX: Hyperlipidemia LDL goal <100 History of tachycardia 04/14/2017 DX:Histor y of tachycardia DM (diabetes mellitus), type 2 with renal complications (CMS/HCC) 01/31/2017 DX:DM (diabetes mellitus ), type 2 with renal complications (HCC) Microalbuminuria 04/14/2017 DX:Microalbumin uria Polycythemia 06/04/2018 DX:Polycythemia Condyloma acuminata 11/18/2020 DX:Condyloma acuminata; COMMENT: Condyloma acuminata 11/19 penis YARELIS (obstructive sleep apnea) 05/09/2022 DX :YARELIS (obstructive sleep apnea) CHF (congestive heart failur e) ([facility]/HCC) 01/06/2023 DX:CHF (congestive heart beckie lure) ([facility]) Family History Medical History Relation Name Comments Colon cancer Neg Hx Social History Tobacco Use Types Packs/Day Years Used Date Smoking Tobacco: Light Smoker Cigarettes 0.5 34.1 Started: 10/30/1990 Smokeless Tobacco: Never Alcohol Use Standard Drinks/Week Comments Yes 0 (1 standard drink = 0.6 oz pur e alcohol) Sex and Gender Information Value Date Recorded Sex Assigned at Not on file Gender Identity Not on file Sexual Orientation Not on file Job Start Date Occupation Industry Not on file Not on file Not on file Obstetrics History Last Filed Vital Signs Vital Sign Reading Time Taken Comments Blood Pressure 146/72 09/06/2024 3:01 PM EST Pulse 78 09/06/2024 3:01 PM EST Temperature 36.6 ??C (97.9 ??F) 09/06/2024 3:01 PM ES T Respiratory Rate 20 09/06/2024 3:01 PM EST Oxygen Saturation 98% 09/06/2024 3:01 PM EST Inhaled Oxygen Concentration - - Weight 63.7 kg (140 lb 6.4 oz) 09/06/2024 3:01 P M EST Height 165.1 cm (5' 5 ) 09/06/2024 3:01 PM EST Body Mass Index 23.36 09/06/2024 3:01 PM EST Plan of Treatment Upcoming Encounters Date Type Department Care Team (Late st Contact Info) Description 12/04/2024 1:45 PM EST Office Visit [facility] Hematology Oncology [address] [place] [phone] Moe Fernandes MD [address] [place] [address] 03/07/2025 2:00 PM EDT Office Visit Pulmonolgy - [place] [address] [phone] Nisa Machado MD [address] [address] 06/10/2025 12:00 PM EDT Office Visit Nephrology - [place] [address] [place] [address] Jong Hall MD [address] [facility] [address] [place] [address] Health Maintenance Due Date Last Done Comments Diabetes: Annual Foot Exam 1984 Diabetes: Annual Retina Eye Exam 1984 Hepatitis A Vaccines (1 of 2 - Risk 2-dose series) 1993 Hepatitis B Vaccines (1 of 3 - 19+ 3-dose series) 1993 Pneumococcal Vaccine: Pediatrics (0 to 5 Years) and At-Risk Patients (6 to 64 Years) (2 of 2 - PPSV23 or PCV20) 12/03/2019 10/08/2019 Cholesterol Screening (Lipid Panel) 10/07/2022 Colorectal Cancer Screening: Colonoscopy 10/07/2022 Depression Screening 10/07/2022 HIV Screening 10/07/2022 Hepatitis C Screening 10/07/2022 Social Influencers of Health Screening 10/07/2022 COVID-19 Vaccine ( season) 2024 08/15/2022, 03/18/2021, 02/10/2021 Zoster Vaccines (1 of 2) 2024 Diabetes: Annual Urine Albumin-Creatinine Ratio (uACR) 07/12/2024 07/12/2023 Diabetes: Blood Sugar Control Test (HGBA1C) 05/08/2025 11/08/2024, 05/03/2024 Diabetes: Annual GFR (Glomerular Filtration Rate) 11/08/2025 11/08/2024, 11/08/2024, 07/30/2024, Additional history exists Hypertension/CHF/CAD Annual BMP Blood Test 11/08/2025 11/08/2024, 11/08/2024, 07/30/2024, Additional history exists DTaP,Tdap,and Td Vaccines (2 - Td or Tdap) 05/17/2029 05/17/2019 Influenza Vaccine Completed 07/16/2024, , 07/16/2021, Additional history exists HIB Vaccines Aged Out No longer eligi ble based on patient's age to complete this topic HPV Vaccines Aged Out No longer eligi ble based on patient's age to complete this topic IPV Vaccines Aged Out No longer eligi ble based on patient's age to complete this topic MMR Vaccines Aged Out No longer eligi ble based on patient's age to complete this topic Meningococcal ACWY Vaccine Aged Out N o longer eligible based on patient's age to complete this topic RSV Immunization Patients Under 20 months Aged Out No longer eligible based on patient's age to complete this topic Varicella Vaccines Aged Out No longer eligible based on patient's age to complete this topic Procedures Procedure Name Priority Date/Time Associated Diagnosis Comments HEMOGLOBIN A1C Routine 11/08/2024 12:32 PM EST Sleep related hypoxia HTN (hypertension), benign Type 2 diabetes mellitus (CMS/HCC) BASIC METABOLIC PANEL Routine 11/08/2024 12:32 PM EST Sleep related hypoxia HTN (hypertension), benign Type 2 diabetes mellitus (CMS/HCC) CBC WITH AUTO DIFFERENTIAL Routine 11/08/2024 12:04 PM EST Leucocytosis Iron deficiency anemia, unspecified IRON AND TIBC Routine 11/08/2024 12:04 PM EST Leucocytosis Iron deficiency anemia, unspecified FERRITIN Routine 11/08/2024 12:04 PM EST Leucocytosis Iron deficiency anemia, unspecified CBC AND DIFFERENTIAL Routine 11/08/2024 12:04 PM EST Leucocytosis Iron deficiency anemia, unspecified LACTATE DEHYDROGENASE Routine 11/08/2024 12:04 PM EST Leucocytosis Iron deficiency anemia, unspecified COMPREHENSIVE METABOLIC PANEL Routine 11/08/2024 12:04 PM EST Leucocytosis Iron deficiency anemia, unspecified from Last 3 Months Results * (ABNORMAL) Hemoglobin A1c (11/08/2024 12:32 PM EST) Hemoglobin A1C 8.4(H) <6.5 % LAB CHEMISTRY METHOD 11/08/2024 6:43 PM EST [facility] Mean Bld Glu Estim. 194 mg/dL LAB CHEMISTRY METHOD 11/08/2024 6:43 PM [facility] Blood Venous blood specimen / Unknown Venipuncture / Unknown 11/08/2024 12:32 PM EST 11/08/2024 12:32 PM EST Lea KARIMI LAB BLOOD ORDERABLES [facility] [address] [place] [address], * (ABNORMAL) Basic metabolic panel (11/08/2024 12:32 PM EST) Sodium 137 133 - 145 mmol/L LAB CHEMISTRY METHOD 11/09/2024 12:22 AM [facility] Potassium 3.6 3.5 - 5.5 mmol/L LAB CHEMISTRY METHOD 11/09/2024 12:22 AM [facility] Chloride 105 96 - 110 mmol/L LAB CHEMISTRY METHOD 11/09/2024 12:22 AM [facility] CO2 26 21 - 32 mmol/L LAB CHEMISTRY METHOD 11/09/2024 12:22 AM [facility] Anion Gap 6 3 - 11 LAB CHEMISTRY METHOD 11/09/2024 12:22 AM [facility] Glucose 125(H) 70 - 100 mg/dL LAB CHEMISTRY METHOD 11/09/2024 12:22 AM [facility] BUN 26(H) 5 - 25 mg/dL LAB CHEMISTRY METHOD 11/09/2024 12:22 AM [facility] Creatinine 1.42(H) 0.70 - 1.30 mg/dL LAB CHEMISTRY METHOD 11/09/2024 12:22 AM [facility] eGFR 60 >=60 mL/min/1. 73m2 LAB CHEMISTRY METHOD 11/09/2024 12:22 AM [facility] Comment:Calculation based on the??Chronic Kidney Disease Epidemiology Collaboration (CKD-EPI) equation refit??without adjustment for race. BUN/Creatinine Ratio 18.3 LAB CHEMISTRY METHOD 11/09/2024 12:22 AM [facility] Calcium 9.2 8.5 - 10.5 mg/dL LAB CHEMISTRY METHOD 11/09/2024 12:22 AM [facility] Blood Venous blood specimen / Unknown Venipuncture / Unknown 11/08/2024 12:32 PM EST 11/08/2024 12:32 PM EST Lea KARIMI LAB BLOOD ORDERABLES [facility] [address] [place] [address], * (ABNORMAL) CBC auto differential (11/08/2024 12:04 PM EST) WBC 9.7 4.8 - 10.8 K/mcL LAB HEMETOLOGY METHOD 11/08/2024 1:49 PM [facility] RBC 5.50 4.50 - 5.50 M/mcL LAB HEMETOLOGY METHOD 11/08/2024 1:49 PM [facility] Hemoglobin 12.8(L) 13.5 - 17.5 g/dL LAB HEMETOLOGY METHOD 11/08/2024 1:49 PM [facility] Hematocrit 41.0(L) 42.0 - 54.0 % LAB HEMETOLOGY METHOD 11/08/2024 1:49 PM [facility] MCV 75.1(L) 79.0 - 98.0 FL LAB HEMETOLOGY METHOD 11/08/2024 1:49 PM [facility] MCH 23.4(L) 27.0 - 32.0 pcg LAB HEMETOLOGY METHOD 11/08/2024 1:49 PM [facility] MCHC 31.2(L) 32.0 - 37.0 g/dL LAB HEMETOLOGY METHOD 11/08/2024 1:49 PM [facility] RDW 25.8(H) 11.0 - 15.0 % LAB HEMETOLOGY METHOD 11/08/2024 1:49 PM [facility] Platelets 287 130 - 400 K/mcL LAB HEMETOLOGY METHOD 11/08/2024 1:49 PM [facility] MPV 10.1 7.0 - 11.0 FL LAB HEMETOLOGY METHOD 11/08/2024 1:49 PM [facility] NRBC 0.0 <1.0 % LAB HEMETOLOGY METHOD 11/08/2024 1:49 PM [facility] NRBC Absolute 0.00 <0.10 K/mcL LAB HEMETOLOGY METHOD 11/08/2024 1:49 PM [facility] Neutrophils Relative 80.9 % LAB HEMETOLOGY METHOD 11/08/2024 1:49 PM [facility] Lymphocytes Relative 10.6 % LAB HEMETOLOGY METHOD 11/08/2024 1:49 PM [facility] Monocytes Relative 7.0 % LAB HEMETOLOGY METHOD 11/08/2024 1:49 PM [facility] Eosinophils Relative 0.6 % LAB HEMETOLOGY METHOD 11/08/2024 1:49 PM [facility] Basophils Relative 0.2 % LAB HEMETOLOGY METHOD 11/08/2024 1:49 PM [facility] Immature Granulocytes Relative 0.7 % LAB HEMETOLOGY METHOD 11/08/2024 1:49 PM [facility] Neutrophils Absolute 7.84(H) 1.50 - 7.00 K/mcL LAB HEMETOLOGY METHOD 11/08/2024 1:49 PM [facility] Lymphocytes Absolute 1.03 1.00 - 5.00 K/[facility] LAB HEMETOLOGY METHOD 11/08/2024 1:49 PM EST [facility] Monocytes Absolute 0.68 0.20 - 1.00 K/[facility] LAB HEMETOLOGY METHOD 11/08/2024 1:49 PM EST [facility] Eosinophils Absolute 0.06 0.00 - 0.50 K/[facility] LAB HEMETOLOGY METHOD 11/08/2024 1:49 PM EST [facility] Basophils Absolute 0.02 0.00 - 0.20 K/[facility] LAB HEMETOLOGY METHOD 11/08/2024 1:49 PM EST [facility] Immature Granulocytes Absolute 0.07(H) 0.00 - 0.03 K/[facility] LAB HEMETOLOGY METHOD 11/08/2024 1:49 PM EST [facility] Blood Venous blood specimen / Unknown Venipuncture / Unknown 11/08/2024 12:04 PM EST 11/08/2024 1:32 PM EST Moe Fernandes MD LAB BLOOD ORDERABLES [facility] [address] [place] [address], * (ABNORMAL) Iron and TIBC (11/08/2024 12:04 PM EST) Iron 44(L) 50 - 160 mcg/dL LAB CHEMISTRY METHOD 11/08/2024 1:58 PM EST [facility] TIBC 420 250 - 450 mcg/dL LAB CHEMISTRY METHOD 11/08/2024 1:58 PM [facility] Iron Saturation 10(L) 20 - 50 % LAB CHEMISTRY METHOD 11/08/2024 1:58 PM EST [facility] Blood Venous blood specimen / Unknown Venipuncture / Unknown 11/08/2024 12:04 PM EST 11/08/2024 1:32 PM EST Moe Fernandes MD LAB BLOOD ORDERABLES Performing Organization Address [facility]/ZIP Co de Phone Number [facility] [address] [place] [address], [place] [phone] * Lactate dehydrogenase (11/08/2024 12:04 PM EST) LDH 226 120 - 246 unit/L LAB CHEMISTRY METHOD 11/08/2024 1:56 PM EST [facility] Blood Venous blood specimen / Unknown Venipuncture / Unknown 11/08/2024 12:04 PM EST 11/08/2024 1:32 PM EST Moe Fernandes MD LAB BLOOD ORDERABLES Performing Organization Address [facility] Co de Phone Number [facility] [address] [place] [address], [place] [phone] * (ABNORMAL) Ferritin (11/08/2024 12:04 PM EST) Pathologist [facility] Ferritin 23(L) 26 - 388 ng/mL LAB CHEMISTRY METHOD 11/08/2024 1:58 PM EST [facility] Blood Venous blood specimen / Unknown Venipuncture / Unknown 11/08/2024 12:04 PM EST 11/08/2024 1:32 PM EST Moe Fernandes MD LAB BLOOD ORDERABLES Performing Organization Address City/[facility]/ZIP Co de Phone Number [facility] [address] [place] [address], [place] [phone] * (ABNORMAL) Comprehensive metabolic panel (11/08/2024 12:04 PM EST) Sodium 136 133 - 145 mmol/L LAB CHEMISTRY METHOD 11/08/2024 1:58 PM EST [facility] Potassium 3.5 3.5 - 5.5 mmol/L LAB CHEMISTRY METHOD 11/08/2024 1:58 PM [facility] Chloride 105 96 - 110 mmol/L LAB CHEMISTRY METHOD 11/08/2024 1:58 PM [facility] CO2 24 21 - 32 mmol/L LAB CHEMISTRY METHOD 11/08/2024 1:58 PM [facility] Anion Gap 7 3 - 11 LAB CHEMISTRY METHOD 11/08/2024 1:58 PM [facility] Glucose 125(H) 70 - 100 mg/dL LAB CHEMISTRY METHOD 11/08/2024 1:58 PM [facility] BUN 26(H) 5 - 25 mg/dL LAB CHEMISTRY METHOD 11/08/2024 1:58 PM [facility] Creatinine 1.42(H) 0.70 - 1.30 mg/dL LAB CHEMISTRY METHOD 11/08/2024 1:58 PM [facility] eGFR 60 >=60 mL/min/1. 73m2 LAB CHEMISTRY METHOD 11/08/2024 1:58 PM [facility] Comment:Calculation based on the??Chronic Kidney Disease Epidemiology Collaboration (CKD-EPI) equation refit??without adjustment for race. BUN/Creatinine Ratio 18.3 LAB CHEMISTRY METHOD 11/08/2024 1:58 PM [facility] Calcium 8.9 8.5 - 10.5 mg/dL LAB CHEMISTRY METHOD 11/08/2024 1:58 PM [facility] AST (SGOT) 19 10 - 42 unit/L LAB CHEMISTRY METHOD 11/08/2024 1:58 PM [facility] ALT (SGPT) 23 10 - 60 unit/L LAB CHEMISTRY METHOD 11/08/2024 1:58 PM [facility] Alkaline Phosphatase 138(H) 42 - 121 unit/L LAB CHEMISTRY METHOD 11/08/2024 1:58 PM [facility] Total Protein 7.3 6.0 - 8.0 g/dL LAB CHEMISTRY METHOD 11/08/2024 1:58 PM EST [facility] Albumin 3.2 3.2 - 5.0 g/dL LAB CHEMISTRY METHOD 11/08/2024 1:58 PM EST [facility] Total Bilirubin 0.3 0.0 - 1.4 mg/dL LAB CHEMISTRY METHOD 11/08/2024 1:58 PM EST [facility] Blood Venous blood specimen / Unknown Venipuncture / Unknown 11/08/2024 12:04 PM EST 11/08/2024 1:32 PM EST Moe Fernandes MD LAB BLOOD ORDERABLES [facility] [address] [place] [address], from Last 3 Months Care Teams It Security Manager Relationship Specialty Start Date End Date Zari Henry MD [address] [place] [address] PCP - General Internal Medicine 08/17/21
--- OUTSIDE RECORDS SUMMARY | 2024-11-19 18:02 | XMS_ITS | Encounter Summary ---
Author Organization [facility] [place] [address] Care Team Providers Care Sales Effectiveness Manager Name Role Phone Zari Henry MD Primary Care Provider Encounter Details Date Type Department Care Team (Late st Contact Info) Description 11/12/2024 Telephone [facility] Hematology Oncology [address] [place] [address] Moe Fernandes MD [address] [place] [address] Social History Tobacco Use Types Packs/Day Years [...] file Not on file Not on file documented as of this encounter Progress Notes * Rogerio Zapien MA - 11/12/2024 10:30 AM EST Returned call to pt, informed him that some bloodwork values are slightly low but Dr. Fernandes saideverything looks okay, but he still recommends that pt go to GI doctor for further workup. Pt had no further questions. * Elvi Genia - 11/12/2024 9:32 AM EST Pt cancelled appt today kassidy to nov pt wants to know blood results please documented in this encounter Plan of Treatment Upcoming Encounters Date Type Department Care Team (Late st Contact Info) Description 12/04/2024 1:45 PM EST Office Visit [facility] Hematology Oncology [address] [place] [phone] Moe Fernandes MD [address] [place] [address] 03/07/2025 2:00 PM EDT Office Visit Pulmonolgy - [place] [address] [phone] Nisa Machado MD [address] [address] 06/10/2025 12:00 PM EDT Office Visit Nephrology - [place] [address] [place] [address] Jong Hall MD [address] [phone] documented as of this encounter Visit Diagnoses Not on filedocumented in this encounter Care Teams Sales Effectiveness Manager Relationship Specialty Start Date End Date Zari Henry MD [address] [place] [address] PCP - General Internal Medicine 08/17/21 documented as of this encounter
--- OUTSIDE RECORDS SUMMARY | 2024-11-19 18:02 | XMS_ITS | Clinical Summary ---
Author Organization [facility] Address [address] [place] [address] Phone Care Team Providers Care Matzo Forming Machine Operator Name Role Phone Unavailable Primary Care Provider Unavailabl e Allergies Active Allergy Reactions Criticality Noted Date Comments Dulaglutide Nausea And Vomiting 06/22/2021 Metformin 07/04/2017 Gi distress Medications Sodium Zirconium Cyclosilicate (Lokelma) 10 g pack Take 10 g by mouth 3 (three) times a week Active doxycycline (VIBRAMYCIN) 100 MG capsule Take 100 mg by mouth in the morning and 100 mg in the evening. Take with a full glass of water and do not lie down for at least 30 minutes after.. Active sodium polystyrene sulfonate (KAYEXALATE) powder Take 15 g by mouth Active hydrALAZINE 50 MG tablet Take 50 mg by mouth in the morning and 50 mg in the evening and 50 mg before bedtime. Active Umeclidinium-Vilan terol (Anoro Ellipta) 62.5-25 MCG/ACT aerosol powder Inhale Active sucralfate (CARAFATE) 1 g tablet Take 1 g by mouth in the morning and 1 g at noon and 1 g in the evening and 1 g before bedtime. Active nicotine polacrilex (NICORETTE) 2 MG gum Chew 2 mg if needed for smoking cessation Active nicotine (NICODERM CQ) 21 MG/24HR Place 1 patch on the skin 1 (one) time each day at the same time Active ferrous sulfate 325 (65 Fe) MG tablet Take 325 mg by mouth 1 (one) time each day with breakfast Active traZODone (DESYREL) 50 MG tablet Take 50 mg by mouth every night Active insulin lispro protamine-insulin lispro (HumaLOG 50-50) (50-50) 100 UNIT/ML inj pen Inject under the skin 2 (two) times a day before meals Active albuterol HFA (PROVENTIL HFA;VENTOLIN HFA) 108 (90 Base) MCG/ACT inhaler Inhale 2 puffs every 6 (six) hours if needed for wheezing Active escitalopram (LEXAPRO) 10 MG tablet Take 10 mg by mouth 1 (one) time each day Active amLODIPine (NORVASC) 10 MG tablet Take 10 mg by mouth 1 (one) time each day Active atorvastatin (LIPITOR) 40 MG tablet Take 40 mg by mouth 1 (one) time each day Active gabapentin (NEURONTIN) 300 MG capsule Take 300 mg by mouth in the morning and 300 mg in the evening and 300 mg before bedtime. Active metoprolol succinate XL (TOPROL-XL) 100 MG 24 hr tablet Take 100 mg by mouth 1 (one) time each day Do not crush or chew. Active omeprazole (PriLOSEC) [address] capsule Take 40 mg by mouth 1 (one) time each day Do not crush or chew. Active furosemide (LASIX) 40 MG tablet Take 40 mg by mouth in the morning and 40 mg in the evening. Active Magnesium 400 MG tablet Take by mouth Active aspirin (ST VIVEK) 81 MG EC tablet Take 81 mg by mouth 1 (one) time each day Active Active Problems Problem Noted Date Diagnosed Date Obstructive sleep apnea syndrome 05/09/2022 Adrenal mass 03/24/2022 History of pancreatitis 02/15/2022 Intermittent claudication 12/27/2021 Asthma-chronic obstructive p ulmonary disease overlap syndrome 08/17/2021 Overview (01/31/2023): S/p PFT with severe diffusion impairement and that accounts for most of his SOB. The chest CT did not showed any significant lung disease. ?? Sleep related hypoxia 08/17/2021 Overview (01/31/2023): On oxygen at nighttime On oxygen at nighttime Microscopic hematuria 12/25/2020 Overview (01/31/2023): Normal renal ultrasound, referred to urology for further work-up Condyloma acuminatum of the anogenital region Overview (01/31/2023): Condyloma acuminata 11/19 penis Peripheral vascular disease 02/21/2020 Overview (04/24/2023): With LLE angioplasty 01/2020 Polycythemia 06/04/2018 Tobacco use 02/20/2018 Anxiety 08/01/2017 Microalbuminuria 04/14/2017 Benign hypertension 01/31/2017 Depressive disorder 01/31/2017 Hyperlipidemia 01/31/2017 Type 2 diabetes mellitus 01/31/2017 Immunizations Name Administration Dates Next Due Influenza, MDCK, PF, Quadrivalent 2020,07/23/2020,10/08/2019,2017 Influenza, MDCK, Quadrivalen t, with preservative 07/04/2017 Influenza, Quadrivalent, Pre servative Free 07/22/2022 Influenza, Unspecified 07/22/2022 Moderna SARS-COV-2 03/18/2021,02/10/2021 Moderna SARS-CoV-2 Bivalent 12+ 08/15/2022 Pneumococcal Conjugate 13-Valent 10/08/2019 Td 05/17/2019 Family History Medical History Relation Comments Dementia Father Heart disease Father Kidney disease Mother Relation Status Comments Father Mother Social History Tobacco Use Types Packs/Day Years Used Date Smoking Tobacco: Every Day Cigarettes Smokeless Tobacco: Never Tobacco Cessation:Ready to Q uit: Not Asked; Counseling Given: Not Answered Alcohol Use Standard Drinks/Week Comments Yes 0 (1 standard drink = 0.6 oz pur e alcohol) Sex and Gender Information Value Date Recorded Sex Assigned at Not on file Legal Sex Male 8:45 AM EST Gender Identity Not on file Sexual Orientation Not on file Plan of Treatment Upcoming Encounters Date Type Department Care Team (Late st Contact Info) Description 02/24/2025 3:00 PM EDT Office Visit [facility] [address] [place] [address] Tiago Tapia MD [address] [facility] [address] [place] [address] Health Maintenance Due Date Last Done Comments Hepatitis B Vaccine (1 of 3 - 19+ 3-dose series) 1993 Pneumococcal Vaccine: Pediat rics (0 to 5 Years) and At-Risk Patients (6 to 64 Years) (2 of 2 - PPSV23 or PCV20) 12/03/2019 10/08/2019 Diabetes: Hemoglobin A1C 12/30/2022 Diabetes: Ophthalmology Exam 12/30/2022 Diabetes: Pedal Pulse Checked 12/30/2022 Diabetes: Sensory Foot Exam 12/30/2022 Diabetes: Visual Foot Exam 12/30/2022 Colorectal Cancer Screening: Annual FOBT 2023 Colorectal Cancer Screening: Colonoscopy 2023 Colorectal Cancer Screening: Sigmoidoscopy 2023 Influenza Vaccine (#1) 2024 2, 07/22/2022, 07/16/2021, Additional history exists Insurance [facility] [address] [place] [address] [facility]
[2024-11-19 19:48] LABS: B Type Natriuretic Peptide 858 pg/mL (<100)
[2024-11-19] MEDS: Albuterol Sulfate 7.5 MG, Albuterol Sulfate (0.083%) 2.5 MG 10 MG INHALE (19:49)
[2024-11-19 20:08] LABS: Lactic Acid 3.8 mmol/L (0.5-2.0)
--- NOTE | 2024-11-19 20:24 | ECG_ITS ---
Test Reason : tachycardia Blood Pressure : */* mmHG Vent. Rate : 124 BPM Atrial Rate : 124 BPM P-R Int : 140 ms QRS Dur : 76 ms QT Int : 308 ms P-R-T Axes : 77 51 -86 degrees QTcB Int : [address] & T wave abnormality, consider inferolateral ischemia Abnormal ECG When compared with ECG of 25-Sep-2024 01:55, Vent. rate has increased by [address] now depressed in Anterior leads T wave inversion now evident in Inferior leads T wave inversion now evident in Anterolateral leads Referred By: Didier Iverson Electronically Signed By: INOCENCIO BERGMAN MD
[2024-11-19] MEDS: methylPREDNISolone Sod Succ 125 MG/2 ML VIAL IVPUSH (20:48)
[2024-11-19] MEDS: 0.9 % Sodium Chloride 1,837.05 ML 1837.05 ML IV (20:49)
[2024-11-19] MEDS: cefTRIAXone sodium 1 GM VIAL IVPUSH (20:55)
[2024-11-19] MEDS: Azithromycin 500 MG in 0.9 % Sodium Chloride 250 ML 125 MG IV (20:58)
[2024-11-19 21:36] LABS: Troponin-I High Sensitivity 12.7 ng/L (<3.5-35.0)
[2024-11-19 21:44] LABS: Reflex Lactate? Lactic Acid Added
--- NOTE | 2024-11-19 21:44 | PHA.MEDREC ---
Addendum entered by Angel Pollock [facility] 11/19/24 22:47: Notified Dr. John that patient does not have his insulin pump on him right now. Addendum entered by Angel Pollock [facility] 11/19/24 22:12: Med rec was reviewed by [facility]. Original Note: Pharmacy Consult ? Medication Reconciliation Pharmacy has completed the medication reconciliation. Spoke to patient to confirm med list. Patient states he no longer takes Vitamin C, Diclofenc sod 1 g, Ferrous sulfate 324 mg, Folic acid 1 mg, Gabapentin 300 mg, Isosorbide mono 30 mg, Nicoderm CQ, Sucralfate 1 gm, Vitamin B1 100 mg. Patient confirmed he uses and insulin pump ( Omnipod) with Insulin Lispro up 100 units daily. Patient states he does not have his pump on him now.
[2024-11-19 22:43] LABS: ~Lactic Acid-LAB USE ONLY 8.8 mmol/L (0.5-2.0)
[2024-11-19] MEDS: Furosemide 100 MG/10 ML VIAL 80 MG IVPUSH (22:59)
--- NOTE | 2024-11-19 23:07 | PM.IMHP ---
History of Present Illness Date of Service: 11/19/24 Attending physician on admission: Alberto John Chief Complaint: SOB, chest pain Patient is a 49-year-old male with a past medical history significant for CHF, HTN, depression, COPD unspecified, YARELIS on CPAP, HLD, type 2 diabetes, PAD, who presented to the ED today due to worsening cough, fever and shortness of breath x2 days. He reports he does have shortness of breath with exertion at baseline however this has exacerbated. He also complains of some chills or nausea with diarrhea about 3 to 4 times a day for the past few days, last episode was yesterday. In addition he complains of some bilateral lower extremity edema which is not present currently. He denies any recent sick contacts but reports that he was with his grandson who was in preschool recently. Review of Systems Constitutional: Constitutional: Denies body ache(s), Reports chills, Reports fatigue, Reports fever(s) and Denies headache(s) Eyes: Eyes: Denies change in vision and Denies photophobia ENT: Denies headache(s), Denies nasal congestion, Reports nasal discharge, Denies neck pain and Reports sore throat Cardiovascular: Cardiovascular: Reports chest pain, Reports chest pain at rest, Denies rapid heart rate, Denies lightheadedness, Reports dyspnea and Reports dyspnea on exertion Respiratory: Respiratory: Reports chest congestion, Reports cough, Reports dyspnea, Reports dyspnea on exertion and Denies wheezing Gastrointestinal: Gastrointestinal: Reports diarrhea, Reports nausea and Denies vomiting Genitourinary: Genitourinary: Denies dysuria, Denies urinary frequency and Denies urinary urgency Musculoskeletal: Musculoskeletal: Denies neck pain Integumentary/Breasts: Skin/Breast: Denies rash Neurologic: Denies confusion and Denies headache(s) Psychiatric: Psychiatric: Denies confusion Endocrine: Endocrine: Reports fatigue Hematologic/Lymphatic: Hematologic/Lymphatic: Denies easy bleeding and Denies easy bruising Allergic/Immunologic: Allergic/Immunologic: Denies wheezing [facility] Medical History (Updated 11/19/24 @ 23:32 by Linette Kasper PA-C) KELVIN (acute kidney injury) Congestive heart failure Hypertension Chronic heart failure with preserved ejection fraction (HFpEF) Acute respiratory failure with hypoxia Congestive heart failure CKD (chronic kidney disease) stage 1, GFR 90 ml/min or greater Depression COPD exacerbation YARELIS (obstructive sleep apnea) CHF exacerbation Hypoxia Acute respiratory failure Uncontrolled hypertension Acute on chronic diastolic (congestive) heart failure Acute on chronic anemia Hyperglycemia due to type 2 diabetes mellitus YARELIS (obstructive sleep apnea) Congestive heart failure Anxiety HLD (hyperlipidemia) Diabetes Hypercholesteremia HTN (hypertension) Asthma PAD (peripheral artery disease) Functional capacity: independent ambulation Family History Father Alzheimer disease CAD (coronary artery disease) Surgical History History of esophagogastroduodenoscopy S/P angiogram of extremity Social History Household Members: Family Household Members Other:: 4 Housing: Apartment Do you presently have visiting nurse or other home services: Yes ([facility] for housing help and meals) Unable to assess alcohol history related to: Unknown Alcohol intake: current Alcohol intake frequency: a few times a week Alcohol type: hard liquor Comment: pt is independent in room Patient Tobacco Use Status: Current everyday Tobacco user Tobacco use type: Cigarette Cigarette Packs Per Day: 1 Cigarettes Per Day: 20.0 Years Smoked: 35 Smoked in Last 30 Days: No e-Cigarette/Vaping Use: Never Used Second Hand Smoke Exposure: Yes Use of substances other than those prescribed or required for medical reasons: Yes Substance Use Type: Marijuana Substance Use Frequency: Chronic Longstanding Advance Directives: Yes Advance Directives on File: Yes Advance Directives Date on File: 06/21/21 service: No Current occupational status: disabled Narrative: smokes about 1 pk/day, social occasional etoh, occasional marijuana Meds Allergies Allergy/AdvReac Type Severity Reaction Status Date / Time [facility] Allergy Unknown Verified 11/19/24 15:48 metformin [METFORMIN] AdvReac Mild DIARRHEA, Verified 11/19/24 15:48 nausea and vomiting Active Medications: Current Medications Acetaminophen (Acetaminophen 325 Mg Tablet) 650 mg PO Q6H PRN PRN Reason: Pain, Mild 1-3,fever,headache Albuterol/Ipratropium (Albuterol/Iprat 2.5/0.5mg 3 Ml Ampul.Neb) 3 ml INHALE RQ4H WHILE AWAKE DIONISIO Albuterol/Ipratropium (Albuterol/Iprat 2.5/0.5mg 3 Ml Ampul.Neb) 3 ml INHALE Q4H PRN PRN Reason: Wheezing Amlodipine Besylate (Amlodipine Besylate 10 Mg Tablet) 10 mg PO DAILY [facility]; Protocol Aspirin (Aspirin Enteric Coated 81 Mg Tablet.Dr) 81 mg PO DAILY [facility] Atorvastatin Calcium (Atorvastatin Calcium 40 Mg Tablet) 40 mg PO DAILY [facility] Benzonatate (Benzonatate 100 Mg Capsule) 100 mg PO TID PRN PRN Reason: Cough Calcium Carbonate (Calcium Carbonate 750 Mg Tab.Chew) 750 mg PO Q4H PRN PRN Reason: Heartburn Enoxaparin Sodium (Enoxaparin Sodium 40 Mg/0.4 Ml Syringe) 40 mg SUBCUT Q24H [facility] Escitalopram Oxalate (Escitalopram Oxalate 10 Mg Tablet) 10 mg PO DAILY [facility] Fluticasone Propionate (Fluticasone Propionate Nasal 16 Gm [place]) 1 spray NOSTRIL-B BID [facility] Fluticasone/Vilanterol (Fluticasone/Vilanterol 100/25 Blst.W.Dev) 1 puff INHALE RDAILY [facility] Furosemide (Furosemide 100 Mg/10 Ml Vial) 80 mg IVPUSH DAILY [facility]; Protocol Furosemide (Furosemide 40 Mg/4 Ml Vial) 40 mg IVPUSH BEDTIME DIONIS[facility]; Protocol Glucose (Glucose Gel 15 Gm Gel..Gram.) 15 gm PO Q15M PRN; Protocol PRN Reason: per Hypoglycemia Standing Ord. Hydralazine HCl (Hydralazine Hcl 50 Mg Tablet) 100 mg PO TID [facility]; Protocol Dextrose (D10) 250 mls @ 750 mls/hr IV Q15M PRN; Protocol PRN Reason: per Hypoglycemia Standing Ord. Insulin Human Lispro (Insulin Lispro 100 Unit/Ml 3 Ml Vial) 0 unit SUBCUT QIDACHS [facility]; Protocol Levalbuterol HCl (Levalbuterol Hcl 1.25 Mg/3 Ml Vial.Neb) 1.25 mg INHALE Q3H PRN PRN Reason: Wheezing Magnesium Hydroxide (Milk Of Magnesia 30 Ml Oral.Susp) 30 ml PO DAILY PRN PRN Reason: Constipation Magnesium Oxide (Magnesium Oxide 400 Mg Tablet) 400 mg PO BIDPC [facility] Melatonin (Melatonin 3 Mg Tablet) 6 mg PO BEDTIME PRN PRN Reason: Insomnia Metoprolol Succinate (Metoprolol Succinate Er 100 Mg Tab.Er.24h) 100 mg PO DAILY [facility]; Protocol Omeprazole (Omeprazole 40 Mg Capsule.) 40 mg PO DAILY@0630 [facility] Ondansetron HCl (Ondansetron Hcl 4 Mg/2 Ml Vial) 4 mg IVPUSH Q8H PRN PRN Reason: Nausea and Vomiting Sodium Chloride (0.9 % Sodium Chloride Flush 3 Ml Syringe) 3 ml IVFLUSH QSHIFT [facility] Trazodone HCl (Trazodone Hcl 100 Mg Tablet) 100 mg PO BEDTIME [facility] Home Medications ?Medication ?Instructions ?Recorded ?Confirmed ?Last Taken ?Type escitalopram oxalate 10 mg tablet 10 mg PO DAILY 08/01/22 11/19/24 11/18/24 History trazodone 50 mg tablet 100 mg PO BEDTIME 08/01/22 11/19/24 11/18/24 History aspirin 81 mg tablet,delayed 81 mg PO DAILY 10/06/22 11/19/24 11/18/24 History release atorvastatin 40 mg tablet 40 mg PO DAILY 10/06/22 11/19/24 11/18/24 History metoprolol succinate 100 mg 100 mg PO DAILY 10/06/22 11/19/24 11/18/24 History tablet,extended release 24 hr furosemide 40 mg tablet 80 mg PO DAILY 06/26/23 11/19/24 11/18/24 History furosemide 40 mg tablet 40 mg PO BEDTIME 11/24/23 11/19/24 11/18/24 History fluticasone 250 mcg-salmeterol 50 1 ea inhalation BID 12/22/23 11/19/24 11/18/24 History mcg/dose blistr powdr for inhalation (Advair Diskus) albuterol sulfate 90 mcg/actuation 2 puff inhalation Q4H PRN 04/26/24 11/19/24 07/15/24 History aerosol inhaler bronchospasm amlodipine 5 mg tablet 10 mg PO DAILY 06/02/24 11/19/24 11/18/24 History insulin pump cartridge,automated 06/11/24 07/22/24 Unknown History dose,BT with controller subcutaneous (Omnipod 5 G6 Intro Kit (Gen 5) subcutaneous cartridge with controller) omeprazole 40 mg capsule,delayed 40 mg PO DAILY@0630 07/15/24 11/19/24 11/18/24 History release insulin lispro 100 unit/mL 100 unit DIRECTED 11/19/24 11/19/24 11/18/24 History subcutaneous solution Physical Exam Vital Signs and Narrative: Vital Signs: Last Vital Signs Temp 98.4 F 11/19/24 23:01 Pulse 117 H 11/19/24 23:01 Resp 20 11/19/24 23:01 BP 135/64 11/19/24 23:01 Pulse Ox 96 11/19/24 23:01 O2 Del Method Nasal Cannula 11/19/24 23:01 O2 Flow Rate 4 11/19/24 23:01 BMI result Body Mass Index 22.5 General: AOx3, mild respiratory distress, appears uncomfortable Resp: crackles bilateral lower lungs, no wheezing CVS: S1, S2, RRR GI: +BS, NT, no distention Skin: Warm, dry Neuro: Cranial nerves II-XII grossly intact bilaterally. Motor grossly intact bilaterally Extremities: No LE edema Psych: Appropriate affect Const: General: No confusion Orientation/consciousness: No confusion Eyes: Direct Ophthalmoscopy: No photophobia Neuro: General: No confusion Results Labs 11/19/24 16:18 11/19/24 16:19 Labs: Laboratory Results - last 24 hr 11/19/24 11/19/24 11/19/24 16:11 16:18 16:19 MCV 74.7 L MCH 24.5 L MCHC 32.8 RDW 23.9 H Plt Count 350 MPV 9.7 Immature Gran % (Auto) 0.6 H Neut % (Auto) 87.5 H Lymph % (Auto) 4.4 L Story % (Auto) 7.1 Eos % (Auto) 0.1 Baso % (Auto) 0.3 Lymph # (Auto) 0.8 L Story # (Auto) 1.2 Eos # (Auto) 0.0 Baso # (Auto) 0.1 Abs Immat Gran (auto) 0.11 H Absolute Neuts (auto) 15.4 H Absolute Nucleated RBC 0.000 Nucleated RBC % (auto) 0.0 APTT 29.8 Anion Gap 18 Estim Creat Clear Calc 75.0 Estimated GFR > 60 Random Glucose 323 H Lactic Acid Lactic Acid F/U @ 2Hr Calcium 8.2 L D Total Bilirubin 0.6 AST 15 ALT < 6 Alkaline Phosphatase 91 Troponin I High Sens 16.7 D B-Natriuretic Peptide 858 H Total Protein 6.5 Albumin 3.1 L Lipase 22 Influenza Type A (PCR) NEGATIVE Influenza Type B (PCR) NEGATIVE RSV RNA Qual (PCR) NEGATIVE SARS-CoV-2 RNA (RT-PCR) NEGATIVE 11/19/24 11/19/24 11/19/24 19:41 20:54 22:12 MCV MCH MCHC RDW Plt Count MPV Immature Gran % (Auto) Neut % (Auto) Lymph % (Auto) Story % (Auto) Eos % (Auto) Baso % (Auto) Lymph # (Auto) Story # (Auto) Eos # (Auto) Baso # (Auto) Abs Immat Gran (auto) Absolute Neuts (auto) Absolute Nucleated RBC Nucleated RBC % (auto) APTT Anion Gap Estim Creat Clear Calc Estimated GFR Random Glucose Lactic Acid 3.8 H* Lactic Acid F/U @ 2Hr 8.8 H* Calcium Total Bilirubin AST ALT Alkaline Phosphatase Troponin I High Sens 12.7 B-Natriuretic Peptide Total Protein Albumin Lipase Influenza Type A (PCR) Influenza Type B (PCR) RSV RNA Qual (PCR) SARS-CoV-2 RNA (RT-PCR) Imaging Radiologist's Impressions: Impressions Chest X-Ray 11/19/24 16:45 IMPRESSION: Diffuse peribronchial thickening suspected, with more confluent segmental opacity in the right midlung highly suggestive of pneumonia. No effusion. Electronically signed by: Bony Ta MD 11/19/2024 05:00 PM [facility] Assessment and Plan (1) Acute respiratory failure with hypoxia: Status: Acute (2) Pneumonia: Qualifiers: Laterality: right Lung location: middle lobe of lung Pneumonia type: due to unspecified organism Qualified Code(s): J18.9 - Pneumonia, unspecified organism Status: Acute (3) CHF exacerbation: Status: Acute (4) Lactic acidosis: Status: Acute (5) Tobacco use: Status: Acute Plan Patient is a 49-year-old male with a past medical history significant for CHF, HTN, depression, COPD unspecified, YARELIS on CPAP, HLD, type 2 diabetes, PAD, who presented to the ED today due to worsening cough, fever and shortness of breath x2 days. Workup conclusive for acute respiratory failure and sepsis secondary to pneumonia and CHF exacerbation. Patient was given fluid bolus due to sepsis. Acute respiratory failure and sepsis secondary to pneumonia - WBCs 17.6, lactic acid 3.8, 8.8 on repeat, tachycardic and tachypneic, blood cultures x2 pending, not severe sepsis - COVID/flu/RSV negative - chest x-ray with diffuse peribronchial thickening suspected, with more confluence segmental opacity in the right mid lung highly suggestive of pneumonia, no effusion - chest CT with interlobular septal thickening present throughout the bilateral lungs with mild to moderate left and moderate right ill-defined ground-glass opacities. May be related to pulmonary edema in the appropriate clinical setting atypical infection is also a diagnostic consideration, small layering bilateral pleural effusions, mildly enlarged mediastinal lymph nodes - started on azithromycin and ceftriaxone due to pneumonia, continue - tessalon TID PRN for cough - monitor CBC and BMP CHF exacerbation -- also cause of acute respiratory failure - chest CT as above - BNP elevated at 858 - EKG with sinus tachycardia - refrain from further IV fluids - Lasix 80 mg now and again daily, lasix 40mg QHS - given Solu-Medrol 125 mg and albuterol in ED, we will hold off on further steroids as patient is not wheezing and this can exacerbate CHF - monitor CBC and BMP Lactic acidosis, secondary to hypoperfusion due to CHF exacerbation and albuterol use - 3.8, 8.8 on repeat - monitor CBC and BMP HTN - Lasix as above, continue amlodipine, metoprolol and hydralazine COPD unspecified without acute exacerbation - given Solu-Medrol and albuterol in ED as above, discontinue - continue levalbuterol Q3H as needed YARELIS - CPAP at bedtime HLD - continue atorvastatin Type 2 diabetes - sliding scale insulin - diabetic diet PAD - continue aspirin Tobacco use - smoking cessation discussed - nicotine patch Full code VTE prophylaxis: Lovenox Patient with acute respiratory failure and sepsis secondary to pneumonia and CHF exacerbation requiring admission for at least 2 midnights stay for IV antibiotics, diuresis and monitoring. Quality Stroke Does the patient have a stroke diagnosis?: No VTE Prior VTE?: No VTE Risk Level:: Medical - moderate - high VTE Device Contraindication: Treatment Not Indicated VTE Drug Contraindication: N/A - Med Ordered
[2024-11-19 23:55] LABS: Glucose, Whole Blood 450 mg/dL (60-115)
[2024-11-20] VITALS (15 sets, daily range): BP systolic 129–171; BP diastolic 59–99; PULSE 81–115; RESP 18–25; TEMP 36.6–37.1; O2SAT 87–99
[2024-11-20 00:18] LABS: Reflex Lactate? 2 Y
[2024-11-20] MEDS: Enoxaparin Sodium 40 MG/0.4 ML SYRINGE SUBCUT ×2 (00:26→23:39)
[2024-11-20] MEDS: Insulin Glargine,Hum.rec.anlog 100 UNIT/ML 10 ML VIAL 10 UNIT SUBCUT ×2 (00:27→12:45)
[2024-11-20] MEDS: traZODone HCL 100 MG TABLET PO ×2 (00:28→20:31)
[2024-11-20] MEDS: traMADoL HCL 50 MG TABLET 25 MG PO (00:29)
[2024-11-20] MEDS: Insulin Regular, Human 100 UNIT/ML 10 ML VIAL IVPUSH (00:31)
[2024-11-20 01:25] LABS: ~Lactic Acid-LAB USE ONLY 11.4 mmol/L (0.5-2.0)
[2024-11-20 06:05] LABS: Hematocrit 29.8 % (42.0-52.0); Hemoglobin 9.6 g/dl (14.0-18.0); Mean Corpuscular HGB Conc 32.2 g/dl (31.0-36.0); Mean Corpuscular Hemoglobin 25.1 pg (27.0-33.0); Mean Corpuscular Volume 77.8 fL (80.0-98.0); Mean Platelet Volume 10.8 fL (9.4-12.4); Platelet Count 321 X10*3/uL (160-400); Red Blood Count 3.83 X10*6/uL (4.60-5.80); Red Cell Distribution Width 24.1 % (11.0-16.0); White Blood Count 16.4 X10*3/uL (4.8-10.8)
[2024-11-20 06:20] LABS: Lactic Acid 6.4 mmol/L (0.5-2.0)
[2024-11-20 06:21] LABS: Anion Gap 20 (12-20); Blood Urea Nitrogen 21 mg/dL (9-16); Calcium 8.1 mg/dL (8.4-10.2); Carbon Dioxide 12 mmol/L (22-29); Chloride 109 mmol/L (96-108); Creatinine Clr Calc Pharmacy 58.8; Estimated Glomerular Filt Rate 58; Glucose Random 557 mg/dL (60-115); Potassium 4.3 mmol/L (3.3-5.1); Sodium 137 mmol/L (135-145)
--- NOTE | 2024-11-20 06:30 | PM.EVENT ---
Event Note Date of Service: 11/20/24 Event Note: Lactic acid trending down (11.4>>6.4). Noted bicarb 12. Elevated blood glucose but no anion gap. Will give additional basal insulin and IV regular insulin. Check VBG. Time Spent With Patient Time: Total time managing care of this patient today ____ minutes.
[2024-11-20] MEDS: Insulin Regular, Human 100 UNIT/ML 10 ML VIAL 10 UNIT IVPUSH ×2 (07:00)
[2024-11-20] MEDS: Insulin Glargine,Hum.rec.anlog 100 UNIT/ML 10 ML VIAL 20 UNIT SUBCUT (07:01)
[2024-11-20] MEDS: Omeprazole 40 MG CAPSULE.DR PO (07:02)
[2024-11-20] MEDS: Albuterol/Iprat 2.5/0.5MG 3 ML AMPUL.NEB INHALE ×4 (07:27→19:01)
[2024-11-20 07:59] LABS: Reflex Lactate? Lactic Acid Added
[2024-11-20 08:10] LABS: Glucose, Whole Blood 389 mg/dL (60-115)
--- NOTE | 2024-11-20 08:12 | PC.NURSE ---
Late documentation. Assumed care of pt at 1900 on 11/19/24, Pt resting reporting at that time some discomfort in his chest. reported to t/w that the pt had pneumonia and would be ordering abx but also added some labs. Multiple attempts made by tech to obtain BCX2, CC able to place line and obtain 2nd set of blood cultures, IV abx administered administered thereafter and fluids given and completed. Pt evaluated by hospitalist SACHI, informed her of pts chest discomfort and she reported he could have PO tylenol. T/w informed her of the pain scale and a one time dose of Tramadol was ordered and administered with good affect. PT also had elevated glucose and Regular insulin IV push and Lantus subc given as ordered. Pt changed over and rested comfortably in the bed throughout the night. This am glucose elevated 500's, IV regular insulin administered and lantus administered as ordered. Oncoming RN aware and at bedside to see pt. Pt had no further complaints through the night/
--- NOTE | 2024-11-20 08:14 | PC.NURSE ---
POC = [id number]. Leigh Wilcox MD notified.
[2024-11-20] MEDS: Metoprolol Succinate ER 100 MG TAB.ER.24H PO (08:25)
[2024-11-20] MEDS: Sodium Bicarbonate 650 MG TABLET PO ×2 (08:25→20:27)
[2024-11-20] MEDS: Aspirin Enteric Coated 81 MG TABLET.DR PO (08:25)
[2024-11-20] MEDS: hydrALAZINE HCl 50 MG TABLET 100 MG PO ×3 (08:25→20:27)
[2024-11-20] MEDS: Escitalopram Oxalate 10 MG TABLET PO (08:25)
[2024-11-20] MEDS: amLODIPine Besylate 10 MG TABLET PO (08:25)
[2024-11-20] MEDS: Fluticasone/Vilanterol 100/25 BLST.W.DEV 1 PUFF INHALE (08:25)
[2024-11-20] MEDS: Magnesium Oxide 400 MG TABLET PO ×2 (08:25→17:15)
[2024-11-20] MEDS: Insulin Lispro 100 UNIT/ML 3 ML VIAL SUBCUT ×4 (08:26→20:49)
[2024-11-20] MEDS: Nicotine 21 MG PATCH.TD24 TRANSDERMA (08:26)
[2024-11-20] MEDS: Furosemide 100 MG/10 ML VIAL 80 MG IVPUSH (08:26)
[2024-11-20] MEDS: Atorvastatin Calcium 40 MG TABLET PO (08:26)
[2024-11-20] MEDS: Sodium Bicarbonate 8.4% 50 MEQ/50 ML SYRINGE IVPUSH (08:27)
[2024-11-20 09:31] LABS: Venous Blood Gas Refer to POC result
[2024-11-20 09:32] LABS: VBG HCO3 16 mmol/L (22-26); VBG pCO2 25 mmHg; VBG pH 7.42 (7.32-7.43); VBG pO2 78 mmHg
[2024-11-20 09:49] LABS: Beta-Hydroxybutyrate 0.42 mmol/L (0.02-0.27)
[2024-11-20 09:59] LABS: ~Lactic Acid-LAB USE ONLY 8.7 mmol/L (0.5-2.0)
[2024-11-20 11:24] LABS: Reflex Lactate? 2 Y
[2024-11-20 11:40] LABS: Estimated Average Glucose 177 mg/dL; Hemoglobin A1C 150.1095 umol/L; Hemoglobin A1c % 7.8 % (<6.0); Total Hemoglobin (HGBA1C) 2447.4761 umol/L
--- NOTE | 2024-11-20 11:50 | MHC.CM.PN ---
CM met with Patient at bedside. Patient lives in an apartment with his Brother, Daughter, and 2 Grandchildren and his home O2 and CPAP are supplied through [facility]. Home/resume said services is Patient's goal and CM has initiated and will follow for dc planning. PCP is Dr. Zari Henry and Patient will need assist with transport at dc.HCP is Significant Other/Margine.
[2024-11-20 12:41] LABS: Glucose, Whole Blood 317 mg/dL (60-115)
--- NOTE | 2024-11-20 13:12 | P.PNIM_ITS ---
Subjective Subjective Date of Service: 11/20/24 Interval History: Seen and evaluated Lactic acid trending down Glucose elevated feels little better but still on O2 no other events Review of Systems Review of Systems: Yes all other systems are reviewed and are negative Physical Exam 2 Vital Signs: Vital Signs: Last Vital Signs Temp 98.7 F 11/20/24 10:00 Pulse 81 11/20/24 10:58 Resp 18 11/20/24 10:58 BP 157/62 H 11/20/24 10:00 Pulse Ox 95 11/20/24 10:00 O2 Del Method Nasal Cannula 11/20/24 10:00 O2 Flow Rate 2 11/20/24 10:00 BMI result Body Mass Index 22.5 Const: Other: Constitutional : Awake, interactive, not in distress Neck : Normal inspection, Supple Cardiovascular : RRR, elevated JVP, trace lower extremity edema Respiratory : decrease at bases bilateral air entry, basal crackles, scattered wheezes , On O2 supplement Gastrointestinal: soft, lax, Normal bowel sounds, Non tender Skin : Warm, Dry Neurological : Alert & oriented x3, No focal deficit Objective Data Active Medications Acetaminophen (Acetaminophen 325 Mg Tablet) 650 mg PO Q6H PRN PRN Reason: Pain, Mild 1-3,fever,headache Albuterol/Ipratropium (Albuterol/Iprat 2.5/0.5mg 3 Ml Ampul.Neb) 3 ml INHALE RQ4H WHILE AWAKE [facility] Last Admin: 11/20/24 10:57 Dose: 3 ml Documented By: WILBERT Albuterol/Ipratropium (Albuterol/Iprat 2.5/0.5mg 3 Ml Ampul.Neb) 3 ml INHALE Q4H PRN PRN Reason: Wheezing Amlodipine Besylate (Amlodipine Besylate 10 Mg Tablet) 10 mg PO DAILY [facility]; Protocol Last Admin: 11/20/24 08:25 Dose: 10 mg Documented By: SAMIR Aspirin (Aspirin Enteric Coated 81 Mg Tablet.) 81 mg PO DAILY [facility] Last Admin: 11/20/24 08:25 Dose: 81 mg Documented By: SAMIR Atorvastatin Calcium (Atorvastatin Calcium 40 Mg Tablet) 40 mg PO DAILY [facility] Last Admin: 11/20/24 08:26 Dose: 40 mg Documented By: SAMIR Benzonatate (Benzonatate 100 Mg Capsule) 100 mg PO TID PRN PRN Reason: Cough Calcium Carbonate (Calcium Carbonate 750 Mg Tab.Chew) 750 mg PO Q4H PRN PRN Reason: Heartburn Ceftriaxone Sodium (Ceftriaxone Sodium 1 Gm Vial) 1 gm IVPUSH Q24H [facility] Enoxaparin Sodium (Enoxaparin Sodium 40 Mg/0.4 Ml Syringe) 40 mg SUBCUT Q24H [facility] Last Admin: 11/20/24 00:26 Dose: 40 mg Documented By: SOPHIA Escitalopram Oxalate (Escitalopram Oxalate 10 Mg Tablet) 10 mg PO DAILY [facility] Last Admin: 11/20/24 08:25 Dose: 10 mg Documented By: SAMIR Fluticasone Propionate (Fluticasone Propionate Nasal 16 Gm [place]) 1 spray NOSTRIL-B BID [facility] Last Admin: 11/20/24 12:30 Dose: Not Given Documented By: MURALI Non-Admin Reason: in ed Fluticasone/Vilanterol (Fluticasone/Vilanterol 100/25 Blst.W.Dev) 1 puff INHALE RDAILY [facility] Last Admin: 11/20/24 08:25 Dose: 1 puff Documented By: WILBERT Furosemide (Furosemide 100 Mg/10 Ml Vial) 80 mg IVPUSH DAILY [facility]; Protocol Last Admin: 11/20/24 08:26 Dose: 80 mg Documented By: SAMIR Furosemide (Furosemide 40 Mg/4 Ml Vial) 40 mg IVPUSH BEDTIME [facility]; Protocol Glucose (Glucose Gel 15 Gm Gel..Gram.) 15 gm PO Q15M PRN; Protocol PRN Reason: per Hypoglycemia Standing Ord. Hydralazine HCl (Hydralazine Hcl 50 Mg Tablet) 100 mg PO TID [facility]; Protocol Last Admin: 11/20/24 08:25 Dose: 100 mg Documented By: SAMIR Dextrose (D10) 250 mls @ 750 mls/hr IV Q15M PRN; Protocol PRN Reason: per Hypoglycemia Standing Ord. Azithromycin 500 mg/ Sodium (Chloride) 250 mls @ 125 mls/hr IV Q24H [facility] Insulin Glargine (Insulin Glargine,Hum.Rec.Anlog 100 Unit/Ml 10 Ml Vial) 25 unit SUBCUT DAILY [facility] Insulin Human Lispro (Insulin Lispro 100 Unit/Ml 3 Ml Vial) 0 unit SUBCUT QIDACHS [facility]; Protocol Last Admin: 11/20/24 12:46 Dose: 8 unit Documented By: MURALI Levalbuterol HCl (Levalbuterol Hcl 1.25 Mg/3 Ml Vial.Neb) 1.25 mg INHALE Q3H PRN PRN Reason: Wheezing Magnesium Hydroxide (Milk Of Magnesia 30 Ml Oral.Susp) 30 ml PO DAILY PRN PRN Reason: Constipation Magnesium Oxide (Magnesium Oxide 400 Mg Tablet) 400 mg PO BIDPC [facility] Last Admin: 11/20/24 08:25 Dose: 400 mg Documented By: SAMIR Melatonin (Melatonin 3 Mg Tablet) 6 mg PO BEDTIME PRN PRN Reason: Insomnia Metoprolol Succinate (Metoprolol Succinate Er 100 Mg Tab.Er.24h) 100 mg PO DAILY [facility]; Protocol Last Admin: 11/20/24 08:25 Dose: 100 mg Documented By: SAMIR Nicotine (Nicotine 21 Mg Patch.Td24) 21 mg TRANSDERMA DAILY [facility] Last Admin: 11/20/24 08:26 Dose: 21 mg Documented By: SAMIR Omeprazole (Omeprazole 40 Mg Capsule.Dr) 40 mg PO DAILY@0630 [facility] Last Admin: 11/20/24 07:02 Dose: 40 mg Documented By: SOPHIA Ondansetron HCl (Ondansetron Hcl 4 Mg/2 Ml Vial) 4 mg IVPUSH Q8H PRN PRN Reason: Nausea and Vomiting Sodium Bicarbonate (Sodium Bicarbonate 650 Mg Tablet) 650 mg PO BID [facility] Last Admin: 11/20/24 08:25 Dose: 650 mg Documented By: SAMIR Sodium Chloride (0.9 % Sodium Chloride Flush 3 Ml Syringe) 3 ml IVFLUSH QSHIFT [facility] Last Admin: 11/20/24 08:58 Dose: Not Given Documented By: SAMIR Non-Admin Reason: Previously Administered Trazodone HCl (Trazodone Hcl 100 Mg Tablet) 100 mg PO BEDTIME [facility] Last Admin: 11/20/24 00:28 Dose: 100 mg Documented By: SOPHIA Labs 11/20/24 04:58 11/20/24 04:58 Labs: Laboratory Results - last 24 hr 11/19/24 11/19/24 11/19/24 16:11 16:18 16:19 MCV 74.7 L MCH 24.5 L MCHC 32.8 RDW 23.9 H Plt Count 350 MPV 9.7 Immature Gran % (Auto) 0.6 H Neut % (Auto) 87.5 H Lymph % (Auto) 4.4 L [place] % (Auto) 7.1 Eos % (Auto) 0.1 Baso % (Auto) 0.3 Lymph # (Auto) 0.8 L [place] # (Auto) 1.2 Eos # (Auto) 0.0 Baso # (Auto) 0.1 Abs Immat Gran (auto) 0.11 H Absolute Neuts (auto) 15.4 H Absolute Nucleated RBC 0.000 Nucleated RBC % (auto) 0.0 APTT 29.8 VBG pH VBG pCO2 VBG pO2 VBG HCO3 VBG O2 Saturation VBG Base Excess Anion Gap 18 Estim Creat Clear Calc 75.0 Estimated GFR > 60 POC Glucose Random Glucose 323 H Estimat Average Glucose Hemoglobin A1c % Lactic Acid Lactic Acid F/U @ 2Hr Lactic Acid F/U @ 4Hr Calcium 8.2 L D Total Bilirubin 0.6 AST 15 ALT < 6 Alkaline Phosphatase 91 Troponin I High Sens 16.7 D B-Natriuretic Peptide 858 H Total Protein 6.5 Albumin 3.1 L Lipase 22 Beta-Hydroxybutyrate Influenza Type A (PCR) NEGATIVE Influenza Type B (PCR) NEGATIVE RSV RNA Qual (PCR) NEGATIVE SARS-CoV-2 RNA (RT-PCR) NEGATIVE 11/19/24 11/19/24 11/19/24 19:41 20:54 22:12 MCV MCH MCHC RDW Plt Count MPV Immature Gran % (Auto) Neut % (Auto) Lymph % (Auto) [place] % (Auto) Eos % (Auto) Baso % (Auto) Lymph # (Auto) [place] # (Auto) Eos # (Auto) Baso # (Auto) Abs Immat Gran (auto) Absolute Neuts (auto) Absolute Nucleated RBC Nucleated RBC % (auto) APTT VBG pH VBG pCO2 VBG pO2 VBG HCO3 VBG O2 Saturation VBG Base Excess Anion Gap Estim Creat Clear Calc Estimated GFR POC Glucose Random Glucose Estimat Average Glucose Hemoglobin A1c % Lactic Acid 3.8 H* Lactic Acid F/U @ 2Hr 8.8 H* Lactic Acid F/U @ 4Hr Calcium Total Bilirubin AST ALT Alkaline Phosphatase Troponin I High Sens 12.7 B-Natriuretic Peptide Total Protein Albumin Lipase Beta-Hydroxybutyrate Influenza Type A (PCR) Influenza Type B (PCR) RSV RNA Qual (PCR) SARS-CoV-2 RNA (RT-PCR) 11/19/24 11/20/24 11/20/24 23:50 01:00 04:58 MCV 77.8 L MCH 25.1 L MCHC 32.2 RDW 24.1 H Plt Count 321 MPV 10.8 Immature Gran % (Auto) Neut % (Auto) Lymph % (Auto) [place] % (Auto) Eos % (Auto) Baso % (Auto) Lymph # (Auto) [place] # (Auto) Eos # (Auto) Baso # (Auto) Abs Immat Gran (auto) Absolute Neuts (auto) Absolute Nucleated RBC 0.000 Nucleated RBC % (auto) 0.0 APTT VBG pH VBG pCO2 VBG pO2 VBG HCO3 VBG O2 Saturation VBG Base Excess Anion Gap 20 Estim Creat Clear Calc 58.8 Estimated GFR 58 POC Glucose 450 H* Random Glucose 557 H* Estimat Average Glucose 177 Hemoglobin A1c % 7.8 H Lactic Acid Lactic Acid F/U @ 2Hr Lactic Acid F/U @ 4Hr 11.4 H* Calcium 8.1 L Total Bilirubin AST ALT Alkaline Phosphatase Troponin I High Sens B-Natriuretic Peptide Total Protein Albumin Lipase Beta-Hydroxybutyrate Influenza Type A (PCR) Influenza Type B (PCR) RSV RNA Qual (PCR) SARS-CoV-2 RNA (RT-PCR) 11/20/24 11/20/24 11/20/24 05:55 07:59 09:22 MCV MCH MCHC RDW Plt Count MPV Immature Gran % (Auto) Neut % (Auto) Lymph % (Auto) [place] % (Auto) Eos % (Auto) Baso % (Auto) Lymph # (Auto) [place] # (Auto) Eos # (Auto) Baso # (Auto) Abs Immat Gran (auto) Absolute Neuts (auto) Absolute Nucleated RBC Nucleated RBC % (auto) APTT VBG pH VBG pCO2 VBG pO2 VBG HCO3 VBG O2 Saturation VBG Base Excess Anion Gap Estim Creat Clear Calc Estimated GFR POC Glucose 389 H* Random Glucose Estimat Average Glucose Hemoglobin A1c % Lactic Acid 6.4 H* Lactic Acid F/U @ 2Hr 8.7 H* Lactic Acid F/U @ 4Hr Calcium Total Bilirubin AST ALT Alkaline Phosphatase Troponin I High Sens B-Natriuretic Peptide Total Protein Albumin Lipase Beta-Hydroxybutyrate 0.42 H Influenza Type A (PCR) Influenza Type B (PCR) RSV RNA Qual (PCR) SARS-CoV-2 RNA (RT-PCR) 11/20/24 11/20/24 09:25 12:36 MCV MCH MCHC RDW Plt Count MPV Immature Gran % (Auto) Neut % (Auto) Lymph % (Auto) [place] % (Auto) Eos % (Auto) Baso % (Auto) Lymph # (Auto) [place] # (Auto) Eos # (Auto) Baso # (Auto) Abs Immat Gran (auto) Absolute Neuts (auto) Absolute Nucleated RBC Nucleated RBC % (auto) APTT VBG pH 7.42 VBG pCO2 25 VBG pO2 78 VBG HCO3 16 L VBG O2 Saturation 97.0 VBG Base Excess -6.0 Anion Gap Estim Creat Clear Calc Estimated GFR POC Glucose 317 H Random Glucose Estimat Average Glucose Hemoglobin A1c % Lactic Acid Lactic Acid F/U @ 2Hr Lactic Acid F/U @ 4Hr Calcium Total Bilirubin AST ALT Alkaline Phosphatase Troponin I High Sens B-Natriuretic Peptide Total Protein Albumin Lipase Beta-Hydroxybutyrate Influenza Type A (PCR) Influenza Type B (PCR) RSV RNA Qual (PCR) SARS-CoV-2 RNA (RT-PCR) Assessment and Plan (1) Tobacco use: Status: Acute (2) Lactic acidosis: Status: Acute (3) CHF exacerbation: Status: Acute (4) Acute respiratory failure with hypoxia: Status: Acute (5) Acute bronchospasm: Status: Acute (6) Pneumonia: Status: Acute Plan Patient is a 49-year-old male with a past medical history significant for CHF, HTN, depression, COPD unspecified, YARELIS on CPAP, HLD, type 2 diabetes, PAD, who presented to the ED today due to worsening cough, fever and shortness of breath x2 days. Workup conclusive for acute respiratory failure and sepsis secondary to pneumonia and CHF exacerbation. Patient was given fluid bolus due to sepsis. Acute respiratory failure and sepsis secondary to pneumonia chest images concerning for fluid overload and atypical pneumonia sepsis resolved Continue azithromycin and ceftriaxone Hold on further steroids now tessalon TID PRN for cough follow cultures CHF exacerbation BNP elevated at 858 IV lasix 40mg QHS I\O and BNP Lactic acidosis, multifactorial secondary to hypoperfusion due to CHF exacerbation and albuterol use not due to severe sepsis trended down HTN continue amlodipine, metoprolol and hydralazine COPD unspecified with acute exacerbation continue levalbuterol Q3H as needed Duonebs ATC Prednisone 40 mg daily YARELIS CPAP at bedtime HLD continue atorvastatin Type 2 DM with acute hyperglycemia Start Lantus sliding scale insulin diabetic diet PAD continue aspirin Tobacco use smoking cessation discussed nicotine patch Full code VTE prophylaxis: Lovenox Patient with acute respiratory failure and sepsis secondary to pneumonia and CHF exacerbation requiring overnight stay for IV antibiotics, diuresis and monitoring. Quality Stroke Does the patient have a stroke diagnosis?: No VTE Prior VTE?: No VTE Risk Level:: Medical - moderate - high VTE Device Contraindication: Treatment Not Indicated VTE Drug Contraindication: N/A - Med Ordered
[2024-11-20 13:20] LABS: ~Lactic Acid-LAB USE ONLY 4.2 mmol/L (0.5-2.0)
[2024-11-20 13:38] LABS: Cancel Lactic Acid Canceled
[2024-11-20 14:02] LABS: Anion Gap 18 (12-20); Blood Urea Nitrogen 22 mg/dL (9-16); Calcium 8.6 mg/dL (8.4-10.2); Carbon Dioxide 21 mmol/L (22-29); Chloride 107 mmol/L (96-108); Creatinine Clr Calc Pharmacy 67.7; Estimated Glomerular Filt Rate > 60; Glucose Random 298 mg/dL (60-115); Sodium 142 mmol/L (135-145)
[2024-11-20 14:46] LABS: Adenovirus PCR Not Detected (Not Detect.); Bordetella parapertussis PCR Not Detected (Not Detect.); Bordetella pertussis PCR Not Detected (Not Detect.); Chlamydia pneumoniae PCR Not Detected (Not Detect.); Coronavirus 229E PCR Not Detected (Not Detect.); Coronavirus HKU1 PCR Not Detected (Not Detect.); Coronavirus NL63 PCR Not Detected (Not Detect.); Coronavirus OC43 PCR Not Detected (Not Detect.); Human metapneumovirus PCR Not Detected (Not Detect.); Influenza A PCR Not Detected (Not Detect.); Influenza B PCR Not Detected (Not Detect.); Mycoplasma pneumoniae PCR Not Detected (Not Detect.); Parainfluenza 1 PCR Not Detected (Not Detect.); Parainfluenza 2 PCR Not Detected (Not Detect.); Parainfluenza 3 PCR Not Detected (Not Detect.); Parainfluenza 4 PCR Not Detected (Not Detect.); RSV PCR Not Detected (Not Detect.); Rhino/Enterovirus PCR Not Detected (Not Detect.)
[2024-11-20 14:48] LABS: SARS-CoV-2 PCR Not Detected (Not Detect.)
[2024-11-20 15:26] LABS: Glucose, Whole Blood 346 mg/dL (60-115)
[2024-11-20] MEDS: 0.9 % Sodium Chloride Flush 3 ML SYRINGE IVFLUSH ×3 (15:30→20:28)
[2024-11-20] MEDS: cefTRIAXone sodium 1 GM VIAL IVPUSH (20:27)
[2024-11-20] MEDS: Furosemide 40 MG/4 ML VIAL IVPUSH (20:27)
[2024-11-20] MEDS: Azithromycin 500 MG in 0.9 % Sodium Chloride 250 ML 125 MG IV (20:27)
[2024-11-20 20:43] LABS: Glucose, Whole Blood 222 mg/dL (60-115)
[2024-11-20] MEDS: vancomycin HCL 1,500 MG in 0.9 % Sodium Chloride 500 ML 333.33 MG IV (23:43)
[2024-11-21] VITALS (11 sets, daily range): BP systolic 110–161; BP diastolic 58–82; PULSE 76–94; RESP 16–20; TEMP 36.6–37.1; O2SAT 92–98
[2024-11-21] MEDS: Omeprazole 40 MG CAPSULE.DR PO (06:01)
[2024-11-21 07:01] LABS: Basophils Percent Auto 0.1 % (0-2); Hematocrit 29.7 % (42.0-52.0); Hemoglobin 9.5 g/dl (14.0-18.0); Imm Gran Abs Auto 0.24 X10*3/uL (0.00-0.03); Lymphocytes Absolute Auto 1.1 X10*3/uL (1.2-4.9); Lymphocytes Percent Auto 4.7 % (20-40); MANUAL DIFF FLAG SCAN; Mean Corpuscular Hemoglobin 24.2 pg (27.0-33.0); Mean Corpuscular Volume 75.6 fL (80.0-98.0); Mean Platelet Volume 10.1 fL (9.4-12.4); Monocytes Percent Auto 4.2 % (2-11); Neutrophils Absolute Auto 21.1 x10*3/uL (2.0-8.3); Platelet Count 336 X10*3/uL (160-400); Red Blood Count 3.93 X10*6/uL (4.60-5.80); Red Cell Distribution Width 23.6 % (11.0-16.0); SCAN SMEAR FLAG 1; White Blood Count 23.4 X10*3/uL (4.8-10.8)
[2024-11-21 07:04] LABS: Anion Gap 12 (12-20); Blood Urea Nitrogen 26 mg/dL (9-16); Calcium 8.1 mg/dL (8.4-10.2); Carbon Dioxide 24 mmol/L (22-29); Chloride 109 mmol/L (96-108); Creatinine Clr Calc Pharmacy 72.2; Estimated Glomerular Filt Rate > 60; Glucose Random 158 mg/dL (60-115); Sodium 141 mmol/L (135-145)
[2024-11-21 07:26] LABS: SLIDE REVIEW VERIFIED
[2024-11-21 07:27] LABS: Glucose, Whole Blood 159 mg/dL (60-115)
[2024-11-21] MEDS: Fluticasone/Vilanterol 100/25 BLST.W.DEV 1 PUFF INHALE (07:40)
[2024-11-21] MEDS: Albuterol/Iprat 2.5/0.5MG 3 ML AMPUL.NEB INHALE ×4 (07:41→20:43)
[2024-11-21] MEDS: Insulin Lispro 100 UNIT/ML 3 ML VIAL SUBCUT ×4 (08:02→23:00)
[2024-11-21] MEDS: predniSONE 20 MG TABLET 40 MG PO (08:06)
[2024-11-21] MEDS: Nicotine 21 MG PATCH.TD24 TRANSDERMA (08:06)
[2024-11-21] MEDS: Aspirin Enteric Coated 81 MG TABLET.DR PO (08:06)
[2024-11-21] MEDS: Sodium Bicarbonate 650 MG TABLET PO ×2 (08:06→20:28)
[2024-11-21] MEDS: Magnesium Oxide 400 MG TABLET PO ×2 (08:06→16:48)
[2024-11-21] MEDS: amLODIPine Besylate 10 MG TABLET PO (08:06)
[2024-11-21] MEDS: hydrALAZINE HCl 50 MG TABLET 100 MG PO ×3 (08:06→20:28)
[2024-11-21] MEDS: Metoprolol Succinate ER 100 MG TAB.ER.24H PO (08:07)
[2024-11-21] MEDS: Escitalopram Oxalate 10 MG TABLET PO (08:07)
[2024-11-21] MEDS: Insulin Glargine,Hum.rec.anlog 100 UNIT/ML 10 ML VIAL 15 UNIT SUBCUT (08:07)
[2024-11-21] MEDS: Atorvastatin Calcium 40 MG TABLET PO (08:07)
[2024-11-21] MEDS: 0.9 % Sodium Chloride Flush 3 ML SYRINGE IVFLUSH ×2 (08:07→16:49)
[2024-11-21] MEDS: Fluticasone Propionate Nasal 16 GM SPRAY 1 SPRAY NOSTRIL-B (08:08)
[2024-11-21] MEDS: Furosemide 100 MG/10 ML VIAL 80 MG IVPUSH (08:15)
[2024-11-21 11:19] LABS: Glucose, Whole Blood 258 mg/dL (60-115)
[2024-11-21] MEDS: vancomycin HCL 750 MG in 0.9 % Sodium Chloride 250 ML 265 MG IV (11:46)
--- NOTE | 2024-11-21 12:25 | HO.PM.IMPN ---
Subjective Subjective Date of Service: 11/21/24 Interval History: Seen and evaluated feels little better but still on O2 and drops to 80s off O2 Glu trended down no other events Review of Systems Review of Systems: Yes all other systems are reviewed and are negative Physical Exam Vital Signs: Vital Signs: Last Vital Signs Temp 98.8 F 11/21/24 11:26 Pulse 84 11/21/24 11:39 Resp 18 11/21/24 11:39 BP 110/58 L 11/21/24 11:26 Pulse Ox 96 11/21/24 11:26 O2 Del Method Nasal Cannula 11/21/24 11:26 O2 Flow Rate 2 11/21/24 11:26 BMI result Body Mass Index 22.5 Const: Other: Constitutional : Awake, interactive, not in distress Neck : Normal inspection, Supple Cardiovascular : RRR, elevated JVP, trace lower extremity edema Respiratory : decrease at bases bilateral air entry, basal crackles, scattered wheezes , On O2 supplement Gastrointestinal: soft, lax, Normal bowel sounds, Non tender Skin : Warm, Dry Neurological : Alert & oriented x3, No focal deficit Objective Data Active Medications Acetaminophen (Acetaminophen 325 Mg Tablet) 650 mg PO Q6H PRN PRN Reason: Pain, Mild 1-3,fever,headache Albuterol/Ipratropium (Albuterol/Iprat 2.5/0.5mg 3 Ml Ampul.Neb) 3 ml INHALE RQ4H WHILE AWAKE [facility] Last Admin: 11/21/24 11:38 Dose: 3 ml Documented By: PUJA Albuterol/Ipratropium (Albuterol/Iprat 2.5/0.5mg 3 Ml Ampul.Neb) 3 ml INHALE Q4H PRN PRN Reason: Wheezing Amlodipine Besylate (Amlodipine Besylate 10 Mg Tablet) 10 mg PO DAILY [facility]; Protocol Last Admin: 11/21/24 08:06 Dose: 10 mg Documented By: TRENT Aspirin (Aspirin Enteric Coated 81 Mg Tablet.) 81 mg PO DAILY [facility] Last Admin: 11/21/24 08:06 Dose: 81 mg Documented By: TRENT Atorvastatin Calcium (Atorvastatin Calcium 40 Mg Tablet) 40 mg PO DAILY [facility] Last Admin: 11/21/24 08:07 Dose: 40 mg Documented By: TRENT Benzonatate (Benzonatate 100 Mg Capsule) 100 mg PO TID PRN PRN Reason: Cough Calcium Carbonate (Calcium Carbonate 750 Mg Tab.Chew) 750 mg PO Q4H PRN PRN Reason: Heartburn Ceftriaxone Sodium (Ceftriaxone Sodium 1 Gm Vial) 1 gm IVPUSH Q24H [facility] Last Admin: 11/20/24 20:27 Dose: 1 gm Documented By: CYNTHIA Enoxaparin Sodium (Enoxaparin Sodium 40 Mg/0.4 Ml Syringe) 40 mg SUBCUT Q24H [facility] Last Admin: 11/20/24 23:39 Dose: 40 mg Documented By: CYNTHIA Escitalopram Oxalate (Escitalopram Oxalate 10 Mg Tablet) 10 mg PO DAILY [facility] Last Admin: 11/21/24 08:07 Dose: 10 mg Documented By: TRENT Fluticasone Propionate (Fluticasone Propionate Nasal 16 Gm [place]) 1 spray NOSTRIL-B BID [facility] Last Admin: 11/21/24 08:08 Dose: 1 spray Documented By: TRENT Fluticasone/Vilanterol (Fluticasone/Vilanterol 100/25 Blst.W.Dev) 1 puff INHALE RDAILY [facility] Last Admin: 11/21/24 07:40 Dose: 1 puff Documented By: PUJA Furosemide (Furosemide 100 Mg/10 Ml Vial) 80 mg IVPUSH DAILY [facility]; Protocol Last Admin: 11/21/24 08:15 Dose: 80 mg Documented By: TRENT Furosemide (Furosemide 40 Mg/4 Ml Vial) 40 mg IVPUSH BEDTIME [facility]; Protocol Last Admin: 11/20/24 20:27 Dose: 40 mg Documented By: CYNTHIA Glucose (Glucose Gel 15 Gm Gel..Gram.) 15 gm PO Q15M PRN; Protocol PRN Reason: per Hypoglycemia Standing Ord. Hydralazine HCl (Hydralazine Hcl 50 Mg Tablet) 100 mg PO TID [facility]; Protocol Last Admin: 11/21/24 08:06 Dose: 100 mg Documented By: TRENT Dextrose (D10) 250 mls @ 750 mls/hr IV Q15M PRN; Protocol PRN Reason: per Hypoglycemia Standing Ord. Azithromycin 500 mg/ Sodium (Chloride) 250 mls @ 125 mls/hr IV Q24H [facility] Last Infusion: 11/20/24 22:27 Dose: Infused Documented By: CYNTHIA Vancomycin HCl 750 mg/ Sodium (Chloride) 265 mls @ 265 mls/hr IV Q12H [facility] Last Admin: 11/21/24 11:46 Dose: 265 mls/hr Documented By: TRENT Insulin Glargine (Insulin Glargine,Hum.Rec.Anlog 100 Unit/Ml 10 Ml Vial) 15 unit SUBCUT DAILY [facility] Last Admin: 11/21/24 08:07 Dose: 15 unit Documented By: TRENT Insulin Human Lispro (Insulin Lispro 100 Unit/Ml 3 Ml Vial) 0 unit SUBCUT QIDACHS [facility]; Protocol Last Admin: 11/21/24 11:46 Dose: 6 unit Documented By: TRENT Levalbuterol HCl (Levalbuterol Hcl 1.25 Mg/3 Ml Vial.Neb) 1.25 mg INHALE Q3H PRN PRN Reason: Wheezing Magnesium Hydroxide (Milk Of Magnesia 30 Ml Oral.Susp) 30 ml PO DAILY PRN PRN Reason: Constipation Magnesium Oxide (Magnesium Oxide 400 Mg Tablet) 400 mg PO BIDPC [facility] Last Admin: 11/21/24 08:06 Dose: 400 mg Documented By: TRENT Melatonin (Melatonin 3 Mg Tablet) 6 mg PO BEDTIME PRN PRN Reason: Insomnia Metoprolol Succinate (Metoprolol Succinate Er 100 Mg Tab.Er.24h) 100 mg PO DAILY [facility]; Protocol Last Admin: 11/21/24 08:07 Dose: 100 mg Documented By: TRENT Nicotine (Nicotine 21 Mg Patch.Td24) 21 mg TRANSDERMA DAILY [facility] Last Admin: 11/21/24 08:06 Dose: 21 mg Documented By: TRENT Omeprazole (Omeprazole 40 Mg Capsule.Dr) 40 mg PO DAILY@0630 [facility] Last Admin: 11/21/24 06:01 Dose: 40 mg Documented By: CYNTHIA Ondansetron HCl (Ondansetron Hcl 4 Mg/2 Ml Vial) 4 mg IVPUSH Q8H PRN PRN Reason: Nausea and Vomiting Pharmacy Consult (Consult Rx Vancomycin Dosing) 1 each MISCELLANE DAILY [facility] Prednisone (Prednisone 20 Mg Tablet) 40 mg PO DAILY [facility] Last Admin: 11/21/24 08:06 Dose: 40 mg Documented By: TRENT Sodium Bicarbonate (Sodium Bicarbonate 650 Mg Tablet) 650 mg PO BID [facility] Last Admin: 11/21/24 08:06 Dose: 650 mg Documented By: TRENT Sodium Chloride (0.9 % Sodium Chloride Flush 3 Ml Syringe) 3 ml IVFLUSH QSHIFT [facility] Last Admin: 11/21/24 08:07 Dose: 3 ml Documented By: TRENT Trazodone HCl (Trazodone Hcl 100 Mg Tablet) 100 mg PO BEDTIME [facility] Last Admin: 11/20/24 20:31 Dose: 100 mg Documented By: AVELINOBAI Labs 11/21/24 06:09 11/21/24 06:09 Labs: Laboratory Results - last 24 hr 11/20/24 11/20/24 11/20/24 11:30 12:07 12:36 MCV MCH MCHC RDW Plt Count MPV Immature Gran % (Auto) Neut % (Auto) Lymph % (Auto) Daniels % (Auto) Eos % (Auto) Baso % (Auto) Lymph # (Auto) Daniels # (Auto) Eos # (Auto) Baso # (Auto) Abs Immat Gran (auto) Absolute Neuts (auto) Absolute Nucleated RBC Nucleated RBC % (auto) Smear Tech's Comments Anion Gap Estim Creat Clear Calc Estimated GFR POC Glucose 317 H Random Glucose Lactic Acid F/U @ 4Hr 4.2 H* Calcium Respiratory Panel Mckeon See Note Adenovirus (Rapid PCR) Not Detected B.pert (TEM-PCR) Not Detected B.parapertussis DNA PCR Not Detected C. pneumoniae DNA (PCR) Not Detected Coronavirus OC43 (PCR) Not Detected Coronavirus HKU1 (PCR) Not Detected Coronavirus 229E (PCR) Not Detected Coronavirus NL63 (PCR) Not Detected Human Metapneumovir PCR Not Detected Influenza A (RT-PCR) Not Detected Influenza B (RT-PCR) Not Detected M. pneumoniae (PCR) Not Detected Parainfluenza 1 (PCR) Not Detected Parainfluenza 2 (PCR) Not Detected Parainfluenza 3 (PCR) Not Detected Parainfluenza 4 (PCR) Not Detected RSV (PCR) Not Detected Entero/Rhino (PCR) Not Detected SARS-CoV-2 RNA (RT-PCR) Not Detected 11/20/24 11/20/24 11/20/24 13:28 15:22 20:39 MCV MCH MCHC RDW Plt Count MPV Immature Gran % (Auto) Neut % (Auto) Lymph % (Auto) Daniels % (Auto) Eos % (Auto) Baso % (Auto) Lymph # (Auto) Daniels # (Auto) Eos # (Auto) Baso # (Auto) Abs Immat Gran (auto) Absolute Neuts (auto) Absolute Nucleated RBC Nucleated RBC % (auto) Smear Tech's Comments Anion Gap 18 Estim Creat Clear Calc 67.7 Estimated GFR > 60 POC Glucose 346 H 222 H Random Glucose 298 H Lactic Acid F/U @ 4Hr Calcium 8.6 D Respiratory Panel Mcke[place] Adenovirus (Rapid PCR) B.pert (TEM-PCR) B.parapertussis DNA PCR C. pneumoniae DNA (PCR) Coronavirus OC43 (PCR) Coronavirus HKU1 (PCR) Coronavirus 229E (PCR) Coronavirus NL63 (PCR) Human Metapneumovir PCR Influenza A (RT-PCR) Influenza B (RT-PCR) M. pneumoniae (PCR) Parainfluenza 1 (PCR) Parainfluenza 2 (PCR) Parainfluenza 3 (PCR) Parainfluenza 4 (PCR) RSV (PCR) Entero/Rhino (PCR) SARS-CoV-2 RNA (RT-PCR) 11/21/24 11/21/24 11/21/24 06:09 07:06 11:07 MCV 75.6 L MCH 24.2 L MCHC 32.0 RDW 23.6 H Plt Count 336 MPV 10.1 Immature Gran % (Auto) 1.0 H Neut % (Auto) 90.0 H Lymph % (Auto) 4.7 L Daniels % (Auto) 4.2 Eos % (Auto) 0.0 Baso % (Auto) 0.1 Lymph # (Auto) 1.1 L Daniels # (Auto) 1.0 Eos # (Auto) 0.0 Baso # (Auto) 0.0 Abs Immat Gran (auto) 0.24 H Absolute Neuts (auto) 21.1 H Absolute Nucleated RBC 0.000 Nucleated RBC % (auto) 0.0 Smear Tech's Comments VERIFIED Anion Gap 12 Estim Creat Clear Calc 72.2 Estimated GFR > 60 POC Glucose 159 H 258 H Random Glucose 158 H Lactic Acid F/U @ 4Hr Calcium 8.1 L Respiratory Panel [place] Adenovirus (Rapid PCR) B.pert (TEM-PCR) B.parapertussis DNA PCR C. pneumoniae DNA (PCR) Coronavirus OC43 (PCR) Coronavirus HKU1 (PCR) Coronavirus 229E (PCR) Coronavirus NL63 (PCR) Human Metapneumovir PCR Influenza A (RT-PCR) Influenza B (RT-PCR) M. pneumoniae (PCR) Parainfluenza 1 (PCR) Parainfluenza 2 (PCR) Parainfluenza 3 (PCR) Parainfluenza 4 (PCR) RSV (PCR) Entero/Rhino (PCR) SARS-CoV-2 RNA (RT-PCR) Microbiology Microbiology Results: Microbiology 11/19/24 20:54 Blood Culture - Final Blood - Venous Coag negative Staphylococcus 11/19/24 19:41 Blood Culture - Preliminary Blood - Venous No growth after 24 hours. Assessment and Plan (1) Tobacco use: Status: Acute (2) Lactic acidosis: Status: Acute (3) CHF exacerbation: Status: Acute (4) Acute respiratory failure with hypoxia: Status: Acute (5) Acute bronchospasm: Status: Acute (6) Pneumonia: Status: Acute Plan Patient is a 49-year-old male with a past medical history significant for CHF, HTN, depression, COPD unspecified, YARELIS on CPAP, HLD, type 2 diabetes, PAD, who presented to the ED today due to worsening cough, fever and shortness of breath x2 days. Workup conclusive for acute respiratory failure and sepsis secondary to pneumonia and CHF exacerbation. Patient was given fluid bolus due to sepsis. Acute respiratory failure and sepsis secondary to pneumonia chest images concerning for fluid overload and atypical pneumonia sepsis resolved Continue azithromycin and ceftriaxone tessalon TID PRN for cough follow cultures COPD unspecified with acute exacerbation continue levalbuterol Q3H as needed Duonebs ATC Prednisone 40 mg daily CHF exacerbation BNP elevated at 858 IV lasix 40mg bid I\O and BNP Lactic acidosis, multifactorial secondary to hypoperfusion due to CHF exacerbation and albuterol use not due to severe sepsis trended down HTN continue amlodipine, metoprolol and hydralazine YARELIS CPAP at bedtime HLD continue atorvastatin Type 2 DM with acute hyperglycemia Start Lantus sliding scale insulin diabetic diet PAD continue aspirin Tobacco use smoking cessation discussed nicotine patch Full code VTE prophylaxis: Lovenox Patient with acute respiratory failure secondary to pneumonia, COPD and CHF exacerbation requiring overnight stay for IV antibiotics, diuresis and monitoring. Quality Stroke Does the patient have a stroke diagnosis?: No VTE Prior VTE?: No VTE Risk Level:: Medical - moderate - high VTE Device Contraindication: Treatment Not Indicated VTE Drug Contraindication: N/A - Med Ordered
[2024-11-21 16:34] LABS: Glucose, Whole Blood 342 mg/dL (60-115)
[2024-11-21] MEDS: Azithromycin 500 MG in 0.9 % Sodium Chloride 250 ML 125 MG IV (20:12)
[2024-11-21] MEDS: cefTRIAXone sodium 1 GM VIAL IVPUSH (20:28)
[2024-11-21] MEDS: Furosemide 40 MG/4 ML VIAL IVPUSH (20:28)
[2024-11-21 20:47] LABS: Glucose, Whole Blood 328 mg/dL (60-115)
[2024-11-21 21:30] LABS: Vancomycin Random 18.6 mcg/mL (15-20)
--- NOTE | 2024-11-21 21:42 | HE.PHANOTE ---
RE: VANCO DOSING Trough came back as 18.6 mg/L after 2 doses. Dose is reduced to 500 mg q12h, next trough is scheduled for 11/22/24 @2100.
[2024-11-21] MEDS: traZODone HCL 100 MG TABLET PO (23:17)
[2024-11-21] MEDS: traZODone HCL 25 MG HALFTAB PO (23:17)
[2024-11-21] MEDS: Enoxaparin Sodium 40 MG/0.4 ML SYRINGE SUBCUT (23:19)
[2024-11-21] MEDS: vancomycin HCL 500 MG in 0.9 % Sodium Chloride 100 ML 110 MG IV (23:24)
[2024-11-22] VITALS (10 sets, daily range): BP systolic 132–164; BP diastolic 66–78; PULSE 79–90; RESP 16–20; TEMP 36.6–36.9; O2SAT 92–100
[2024-11-22] MEDS: 0.9 % Sodium Chloride Flush 3 ML SYRINGE IVFLUSH ×3 (02:51→17:08)
[2024-11-22] MEDS: Omeprazole 40 MG CAPSULE.DR PO (05:07)
[2024-11-22 07:15] LABS: MANUAL DIFF FLAG NO
[2024-11-22 07:22] LABS: Basophils Percent Auto 0.1 % (0-2); Eosinophils Percent Auto 0.2 % (0-4); Hematocrit 27.2 % (42.0-52.0); Hemoglobin 8.7 g/dl (14.0-18.0); Imm Gran Abs Auto 0.13 X10*3/uL (0.00-0.03); Imm Gran Pct Auto 0.9 % (0.0-0.4); Lymphocytes Absolute Auto 1.6 X10*3/uL (1.2-4.9); Lymphocytes Percent Auto 11.3 % (20-40); Mean Corpuscular Hemoglobin 24.4 pg (27.0-33.0); Mean Corpuscular Volume 76.2 fL (80.0-98.0); Mean Platelet Volume 10.2 fL (9.4-12.4); Monocytes Absolute Auto 0.8 X10*3/uL (0.1-1.2); Monocytes Percent Auto 5.9 % (2-11); Neutrophils Absolute Auto 11.3 x10*3/uL (2.0-8.3); Neutrophils Percent Auto 81.6 % (45-73); Platelet Count 313 X10*3/uL (160-400); Red Blood Count 3.57 X10*6/uL (4.60-5.80); Red Cell Distribution Width 23.3 % (11.0-16.0); White Blood Count 13.8 X10*3/uL (4.8-10.8)
[2024-11-22 07:24] LABS: Glucose, Whole Blood 220 mg/dL (60-115)
--- NOTE | 2024-11-22 07:39 | P.CDIM_ITS ---
PROVIDER RESPONSE TEXT: To clarify, the appropriate diagnosis supported by the clinical indicators: Acute QUERY TEXT: PHYSICIAN'S DOCUMENTATION REQUEST Date of Query: 11/21/2024 07:41 AM EST Patient Name: Ciara Quiroga Admit Date: 11/20/2024 Dear Suzi Wilcox MD, A review of the medical record indicates additional documentation may be needed. Please review below and update the documentation accordingly. Clinical Indicators: Progress note 11/20 - Lactic acidosis, multifactorial secondary to hypoperfusion due to CHF exacerbati on and albuterol use note due to severe sepsis. Trended down. LA 3.8 6.4 H Clarify which of the following accurately represents the acuity of the Lactic acidosis within the wri tten Plan: Possible options might include: Acute Acute on chronic Chronic Other (explain) Clinically unable to determine (explain) Thank you, Vale Vergara, CCS, CDIS Use of terms such as suspected, likely, concern for, or probable (associated with a specific diagnosi s that is being evaluated, monitored, or treated as if it exists) are acceptable and can be coded in the inpatient se tting, when documented at the time of discharge. Please use your independent medical judgment in providing your response. THIS QUERY IS PART OF THE PERMANENT MEDICAL RECORD
[2024-11-22 07:41] LABS: B Type Natriuretic Peptide 468 pg/mL (<100)
[2024-11-22 07:48] LABS: Anion Gap 9 (12-20); Blood Urea Nitrogen 32 mg/dL (9-16); Carbon Dioxide 26 mmol/L (22-29); Chloride 108 mmol/L (96-108); Creatinine Clr Calc Pharmacy 64.8; Estimated Glomerular Filt Rate > 60; Glucose Random 234 mg/dL (60-115); Sodium 139 mmol/L (135-145)
[2024-11-22] MEDS: Atorvastatin Calcium 40 MG TABLET PO (08:23)
[2024-11-22] MEDS: predniSONE 20 MG TABLET 40 MG PO (08:23)
[2024-11-22] MEDS: amLODIPine Besylate 10 MG TABLET PO (08:23)
[2024-11-22] MEDS: Metoprolol Succinate ER 100 MG TAB.ER.24H PO (08:24)
[2024-11-22] MEDS: Sodium Bicarbonate 650 MG TABLET PO ×2 (08:24→20:29)
[2024-11-22] MEDS: hydrALAZINE HCl 50 MG TABLET 100 MG PO ×3 (08:24→20:29)
[2024-11-22] MEDS: Escitalopram Oxalate 10 MG TABLET PO (08:24)
[2024-11-22] MEDS: Aspirin Enteric Coated 81 MG TABLET.DR PO (08:25)
[2024-11-22] MEDS: Nicotine 21 MG PATCH.TD24 TRANSDERMA ×2 (08:25→08:31)
[2024-11-22] MEDS: Insulin Lispro 100 UNIT/ML 3 ML VIAL SUBCUT ×4 (08:29→21:37)
[2024-11-22] MEDS: Insulin Glargine,Hum.rec.anlog 100 UNIT/ML 10 ML VIAL 15 UNIT SUBCUT (08:30)
[2024-11-22] MEDS: Albuterol/Iprat 2.5/0.5MG 3 ML AMPUL.NEB INHALE ×4 (08:36→20:28)
[2024-11-22] MEDS: Fluticasone/Vilanterol 100/25 BLST.W.DEV 1 PUFF INHALE (08:36)
[2024-11-22] MEDS: Furosemide 100 MG/10 ML VIAL 80 MG IVPUSH (08:36)
[2024-11-22] MEDS: Magnesium Oxide 400 MG TABLET PO ×2 (08:38→17:07)
--- NOTE | 2024-11-22 10:50 | MHC.CM.PN ---
Per ROUNDS discussion, Patient is not yet medically cleared for dc (IV Lasix); home is the goal, and CM will continue to follow.
[2024-11-22 11:13] LABS: Glucose, Whole Blood 173 mg/dL (60-115)
[2024-11-22] MEDS: vancomycin HCL 500 MG in 0.9 % Sodium Chloride 100 ML 110 MG IV (12:14)
[2024-11-22] MEDS: Fluticasone Propionate Nasal 16 GM SPRAY 1 SPRAY NOSTRIL-B ×2 (12:19→20:33)
--- NOTE | 2024-11-22 13:25 | HO.PM.IMPN ---
Subjective Subjective Date of Service: 11/22/24 Interval History: Seen and evaluated feels little better but still on O2 and drops to 80s off O2 with exertion reported dyspnea with minimal effort and ongoing wheezing Glu trended down no other events Review of Systems Review of Systems: Yes all other systems are reviewed and are negative Physical Exam Vital Signs: Vital Signs: Last Vital Signs Temp 98.0 F 11/22/24 07:57 Pulse 79 11/22/24 13:06 Resp 18 11/22/24 13:06 BP 148/70 H 11/22/24 07:57 Pulse Ox 96 11/22/24 07:57 O2 Del Method Nasal Cannula 11/22/24 07:57 O2 Flow Rate 2 11/22/24 07:57 BMI result Body Mass Index 22.5 Const: Other: Constitutional : Awake, interactive, not in distress Neck : Normal inspection, Supple Cardiovascular : RRR, elevated JVP, trace lower extremity edema Respiratory : decrease at bases bilateral air entry, basal crackles, bilateral scattered wheezes , On O2 supplement Gastrointestinal: soft, lax, Normal bowel sounds, Non tender Skin : Warm, Dry Neurological : Alert & oriented x3, No focal deficit Objective Data Active Medications Acetaminophen (Acetaminophen 325 Mg Tablet) 650 mg PO Q6H PRN PRN Reason: Pain, Mild 1-3,fever,headache Albuterol/Ipratropium (Albuterol/Iprat 2.5/0.5mg 3 Ml Ampul.Neb) 3 ml INHALE Q4H PRN PRN Reason: Wheezing Albuterol/Ipratropium (Albuterol/Iprat 2.5/0.5mg 3 Ml Ampul.Neb) 3 ml INHALE Q4H [facility] [place] Last Admin: 11/22/24 13:07 Dose: Not Given Documented By: WILBERT Non-Admin Reason: Duplicate Order Amlodipine Besylate (Amlodipine Besylate 10 Mg Tablet) 10 mg PO DAILY [facility] [place]; Protocol Last Admin: 11/22/24 08:23 Dose: 10 mg Documented By: ANIKA Aspirin (Aspirin Enteric Coated 81 Mg Tablet.) 81 mg PO DAILY [facility] [place] Last Admin: 11/22/24 08:25 Dose: 81 mg Documented By: ANIKA Atorvastatin Calcium (Atorvastatin Calcium 40 Mg Tablet) 40 mg PO DAILY [facility] [place] Last Admin: 11/22/24 08:23 Dose: 40 mg Documented By: ANIKA Benzonatate (Benzonatate 100 Mg Capsule) 100 mg PO TID PRN PRN Reason: Cough Calcium Carbonate (Calcium Carbonate 750 Mg Tab.Chew) 750 mg PO Q4H PRN PRN Reason: Heartburn Ceftriaxone Sodium (Ceftriaxone Sodium 1 Gm Vial) 1 gm IVPUSH Q24H [facility] [place] Last Admin: 11/21/24 20:28 Dose: 1 gm Documented By: STEPHIE Enoxaparin Sodium (Enoxaparin Sodium 40 Mg/0.4 Ml Syringe) 40 mg SUBCUT Q24H [facility] [place] Last Admin: 11/21/24 23:19 Dose: 40 mg Documented By: STEPHIE Escitalopram Oxalate (Escitalopram Oxalate 10 Mg Tablet) 10 mg PO DAILY [facility] [place] Last Admin: 11/22/24 08:24 Dose: 10 mg Documented By: ANIKA Fluticasone Propionate (Fluticasone Propionate Nasal 16 Gm [place]) 1 spray NOSTRIL-B BID [facility] [place] Last Admin: 11/22/24 12:19 Dose: 1 spray Documented By: ANIKA Fluticasone/Vilanterol (Fluticasone/Vilanterol 100/25 Blst.W.Dev) 1 puff INHALE RDAILY [facility] [place] Last Admin: 11/22/24 08:36 Dose: 1 puff Documented By: WILBERT Furosemide (Furosemide 100 Mg/10 Ml Vial) 80 mg IVPUSH DAILY [facility] [place]; Protocol Last Admin: 11/22/24 08:36 Dose: 80 mg Documented By: ANIKA Furosemide (Furosemide 40 Mg/4 Ml Vial) 40 mg IVPUSH BEDTIME [facility] [place]; Protocol Last Admin: 11/21/24 20:28 Dose: 40 mg Documented By: STEPHIE Glucose (Glucose Gel 15 Gm Gel..Gram.) 15 gm PO Q15M PRN; Protocol PRN Reason: per Hypoglycemia Standing Ord. Hydralazine HCl (Hydralazine Hcl 50 Mg Tablet) 100 mg PO TID [facility] [place]; Protocol Last Admin: 11/22/24 08:24 Dose: 100 mg Documented By: ANIKA Dextrose (D10) 250 mls @ 750 mls/hr IV Q15M PRN; Protocol PRN Reason: per Hypoglycemia Standing Ord. Azithromycin 500 mg/ Sodium (Chloride) 250 mls @ 125 mls/hr IV Q24H [facility] [place] Last Infusion: 11/21/24 22:30 Dose: Infused Documented By: STEPHIE Vancomycin HCl 500 mg/ Sodium (Chloride) 110 mls @ 110 mls/hr IV Q12H [facility] [place] Last Infusion: 11/22/24 13:14 Dose: Infused Documented By: ANIKA Insulin Glargine (Insulin Glargine,Hum.Rec.Anlog 100 Unit/Ml 10 Ml Vial) 15 unit SUBCUT DAILY [facility] [place] Last Admin: 11/22/24 08:30 Dose: 15 unit Documented By: ANIKA Insulin Human Lispro (Insulin Lispro 100 Unit/Ml 3 Ml Vial) 0 unit SUBCUT QIDACHS [facility] [place]; Protocol Last Admin: 11/22/24 12:17 Dose: 2 unit Documented By: ANIKA Levalbuterol HCl (Levalbuterol Hcl 1.25 Mg/3 Ml Vial.Neb) 1.25 mg INHALE Q3H PRN PRN Reason: Wheezing Lorazepam (Lorazepam 0.5 Mg Tablet) 0.25 mg PO Q8H PRN PRN Reason: anxiety/restlessness Magnesium Hydroxide (Milk Of Magnesia 30 Ml Oral.Susp) 30 ml PO DAILY PRN PRN Reason: Constipation Magnesium Oxide (Magnesium Oxide 400 Mg Tablet) 400 mg PO BIDPC [facility] [place] Last Admin: 11/22/24 08:38 Dose: 400 mg Documented By: ANIKA Melatonin (Melatonin 3 Mg Tablet) 6 mg PO BEDTIME PRN PRN Reason: Insomnia Methylprednisolone Sodium Succinate (Methylprednisolone Sod Succ 40 Mg/Ml Vial) 40 mg IVPUSH Q8H [facility] [place] Metoprolol Succinate (Metoprolol Succinate Er 100 Mg Tab.Er.24h) 100 mg PO DAILY [facility] [place]; Protocol Last Admin: 11/22/24 08:24 Dose: 100 mg Documented By: ANIKA Nicotine (Nicotine 21 Mg Patch.Td24) 21 mg TRANSDERMA DAILY [facility] [place] Last Admin: 11/22/24 08:31 Dose: 21 mg Documented By: ANIKA Omeprazole (Omeprazole 40 Mg Capsule.Dr) 40 mg PO DAILY@0630 [facility] [place] Last Admin: 11/22/24 05:07 Dose: 40 mg Documented By: STEPHIE Ondansetron HCl (Ondansetron Hcl 4 Mg/2 Ml Vial) 4 mg IVPUSH Q8H PRN PRN Reason: Nausea and Vomiting Pharmacy Consult (Consult Rx Vancomycin Dosing) 1 each MISCELLANE DAILY [facility] [place] Sodium Bicarbonate (Sodium Bicarbonate 650 Mg Tablet) 650 mg PO BID [facility] [place] Last Admin: 11/22/24 08:24 Dose: 650 mg Documented By: ANIKA Sodium Chloride (0.9 % Sodium Chloride Flush 3 Ml Syringe) 3 ml IVFLUSH QSHIFT [facility] [place] Last Admin: 11/22/24 08:30 Dose: 3 ml Documented By: ANIKA Trazodone HCl (Trazodone Hcl 25 Mg Halftab) 25 mg PO BEDTIME [facility] [place] Last Admin: 11/21/24 23:17 Dose: 25 mg Documented By: STEPHIE Trazodone HCl (Trazodone Hcl 100 Mg Tablet) 100 mg PO BEDTIME [facility] [place] Last Admin: 11/21/24 23:17 Dose: 100 mg Documented By: STEPHIE Labs 11/22/24 07:02 11/22/24 07:02 Labs: Laboratory Results - last 24 hr 11/21/24 11/21/24 11/21/24 16:28 20:43 20:59 MCV MCH MCHC RDW Plt Count MPV Immature Gran % (Auto) Neut % (Auto) Lymph % (Auto) [facility] % (Auto) Eos % (Auto) Baso % (Auto) Lymph # (Auto) [facility] # (Auto) Eos # (Auto) Baso # (Auto) Abs Immat Gran (auto) Absolute Neuts (auto) Absolute Nucleated RBC Nucleated RBC % (auto) Anion Gap Estim Creat Clear Calc Estimated GFR POC Glucose 342 H 328 H Random Glucose Calcium B-Natriuretic Peptide Random Vancomycin 18.6 11/22/24 11/22/24 11/22/24 07:02 07:02 07:02 MCV 76.2 L MCH 24.4 L MCHC 32.0 RDW 23.3 H Plt Count 313 MPV 10.2 Immature Gran % (Auto) 0.9 H Neut % (Auto) 81.6 H Lymph % (Auto) 11.[address] [facility] % (Auto) 5.9 Eos % (Auto) 0.2 Baso % (Auto) 0.1 Lymph # (Auto) 1.6 [facility] # (Auto) 0.8 Eos # (Auto) 0.0 Baso # (Auto) 0.0 Abs Immat Gran (auto) 0.13 H Absolute Neuts (auto) 11.3 H Absolute Nucleated RBC 0.000 Nucleated RBC % (auto) 0.0 Anion Gap 9 L Estim Creat Clear Calc 64.8 Cancelled Estimated GFR > 60 Cancelled POC Glucose Random Glucose 234 H Calcium 8.0 L B-Natriuretic Peptide 468 H Random Vancomycin 11/22/24 11/22/24 07:19 11:02 MCV MCH MCHC RDW Plt Count MPV Immature Gran % (Auto) Neut % (Auto) Lymph % (Auto) [facility] % (Auto) Eos % (Auto) Baso % (Auto) Lymph # (Auto) [facility] # (Auto) Eos # (Auto) Baso # (Auto) Abs Immat Gran (auto) Absolute Neuts (auto) Absolute Nucleated RBC Nucleated RBC % (auto) Anion Gap Estim Creat Clear Calc Estimated GFR POC Glucose 220 H 173 H Random Glucose Calcium B-Natriuretic Peptide Random Vancomycin Microbiology Microbiology Results: Microbiology 11/21/24 09:05 Blood Culture - Preliminary Blood - Venous No growth after 24 hours. 11/21/24 09:09 Blood Culture - Preliminary Blood - Venous No growth after 24 hours. 11/19/24 19:41 Blood Culture - Preliminary Blood - Venous No growth after 48 hours. 11/19/24 20:54 Blood Culture - Final Blood - Venous Coag negative Staphylococcus Assessment and Plan (1) Tobacco use: Status: Acute (2) Lactic acidosis: Status: Acute (3) CHF exacerbation: Status: Acute (4) Acute respiratory failure with hypoxia: Status: Acute (5) Acute bronchospasm: Status: Acute (6) Pneumonia: Status: Acute Plan Patient is a 49-year-old male with a past medical history significant for CHF, HTN, depression, COPD unspecified, YARELIS on CPAP, HLD, type 2 diabetes, PAD, who presented to the ED today due to worsening cough, fever and shortness of breath x2 days. Workup conclusive for acute respiratory failure and sepsis secondary to pneumonia and CHF exacerbation. Patient was given fluid bolus due to sepsis. Acute respiratory failure and sepsis secondary to pneumonia chest images concerning for fluid overload and atypical pneumonia sepsis resolved Continue azithromycin and ceftriaxone tessalon TID PRN for cough follow cultures COPD unspecified with acute exacerbation continue levalbuterol Q3H prn Duonebs ATC Q4H Swith to Methylprednisone 40 mg Q8 for now CHF exacerbation BNP elevated IV lasix 40mg and 80 mg in morning I\O and BNP Lactic acidosis, multifactorial secondary to hypoperfusion due to CHF exacerbation and albuterol use not due to severe sepsis trended down HTN continue amlodipine, metoprolol and hydralazine YARELIS CPAP at bedtime HLD continue atorvastatin Type 2 DM with acute hyperglycemia Start Lantus sliding scale insulin diabetic diet PAD continue aspirin Tobacco use smoking cessation discussed nicotine patch Full code VTE prophylaxis: Lovenox Patient with acute respiratory failure secondary to pneumonia, COPD and CHF exacerbation requiring overnight stay for IV antibiotics, diuresis and monitoring. Quality Stroke Does the patient have a stroke diagnosis?: No VTE Prior VTE?: No VTE Risk Level:: Medical - moderate - high VTE Device Contraindication: Treatment Not Indicated VTE Drug Contraindication: N/A - Med Ordered
[2024-11-22] MEDS: methylPREDNISolone Sod Succ 40 MG/ML VIAL IVPUSH ×2 (15:29→21:37)
[2024-11-22 16:29] LABS: Glucose, Whole Blood 346 mg/dL (60-115)
[2024-11-22] MEDS: Furosemide 40 MG/4 ML VIAL IVPUSH (20:30)
[2024-11-22] MEDS: cefTRIAXone sodium 1 GM VIAL IVPUSH (20:30)
[2024-11-22] MEDS: traZODone HCL 100 MG TABLET PO (20:33)
[2024-11-22] MEDS: Azithromycin 500 MG in 0.9 % Sodium Chloride 250 ML 125 MG IV (20:33)
[2024-11-22] MEDS: traZODone HCL 25 MG HALFTAB PO (20:33)
[2024-11-22 20:49] LABS: Glucose, Whole Blood 386 mg/dL (60-115)
[2024-11-22 20:49] LABS: Glucose, Whole Blood 439 mg/dL (60-115)
[2024-11-22 21:36] LABS: Vancomycin Random 13.6 mcg/mL (15-20)
[2024-11-22] MEDS: Enoxaparin Sodium 40 MG/0.4 ML SYRINGE SUBCUT (21:37)
[2024-11-22] MEDS: LORazepam 0.5 MG TABLET 0.25 MG PO (23:11)
[2024-11-22] MEDS: vancomycin HCL 750 MG in 0.9 % Sodium Chloride 250 ML 265 MG IV (23:11)
[2024-11-23] VITALS (11 sets, daily range): BP systolic 142–176; BP diastolic 71–86; PULSE 80–88; RESP 14–22; TEMP 36.3–37.2; O2SAT 92–98
[2024-11-23 02:40] LABS: Glucose, Whole Blood 355 mg/dL (60-115)
[2024-11-23] MEDS: Insulin Lispro 100 UNIT/ML 3 ML VIAL 12 UNIT SUBCUT (03:00)
[2024-11-23 05:33] LABS: Glucose, Whole Blood 230 mg/dL (60-115)
[2024-11-23] MEDS: methylPREDNISolone Sod Succ 40 MG/ML VIAL IVPUSH ×2 (06:36→20:23)
[2024-11-23] MEDS: Omeprazole 40 MG CAPSULE.DR PO (06:36)
[2024-11-23] MEDS: Albuterol/Iprat 2.5/0.5MG 3 ML AMPUL.NEB INHALE ×3 (07:31→19:39)
[2024-11-23] MEDS: Fluticasone/Vilanterol 100/25 BLST.W.DEV 1 PUFF INHALE (07:33)
[2024-11-23 07:37] LABS: Glucose, Whole Blood 177 mg/dL (60-115)
[2024-11-23] MEDS: hydrALAZINE HCl 50 MG TABLET 100 MG PO ×3 (07:52→20:23)
[2024-11-23] MEDS: Atorvastatin Calcium 40 MG TABLET PO (07:52)
[2024-11-23] MEDS: Sodium Bicarbonate 650 MG TABLET PO ×2 (07:52→20:23)
[2024-11-23] MEDS: Aspirin Enteric Coated 81 MG TABLET.DR PO (07:53)
[2024-11-23] MEDS: Escitalopram Oxalate 10 MG TABLET PO (07:53)
[2024-11-23] MEDS: Metoprolol Succinate ER 100 MG TAB.ER.24H PO (07:53)
[2024-11-23] MEDS: amLODIPine Besylate 10 MG TABLET PO (07:53)
[2024-11-23] MEDS: Magnesium Oxide 400 MG TABLET PO ×2 (07:53→16:35)
[2024-11-23] MEDS: Nicotine 21 MG PATCH.TD24 TRANSDERMA (07:54)
[2024-11-23] MEDS: 0.9 % Sodium Chloride Flush 3 ML SYRINGE IVFLUSH ×3 (07:54→20:34)
[2024-11-23] MEDS: Insulin Lispro 100 UNIT/ML 3 ML VIAL SUBCUT ×4 (07:55→21:49)
[2024-11-23] MEDS: Insulin Lispro 100 UNIT/ML 3 ML VIAL 7 UNIT SUBCUT ×4 (07:55→21:48)
[2024-11-23] MEDS: Insulin Glargine,Hum.rec.anlog 100 UNIT/ML 10 ML VIAL 25 UNIT SUBCUT (07:56)
[2024-11-23] MEDS: Furosemide 100 MG/10 ML VIAL 80 MG IVPUSH (08:09)
[2024-11-23] MEDS: Fluticasone Propionate Nasal 16 GM SPRAY 1 SPRAY NOSTRIL-B ×2 (09:29→20:27)
[2024-11-23 10:55] LABS: Creatinine Clr Calc Pharmacy 69.5; Estimated Glomerular Filt Rate > 60
[2024-11-23] MEDS: vancomycin HCL 750 MG in 0.9 % Sodium Chloride 250 ML 265 MG IV ×2 (12:20→23:28)
--- NOTE | 2024-11-23 13:49 | P.PNIM_ITS ---
Subjective Subjective Date of Service: 11/23/24 Interval History: Seen and evaluated feels little better dyspnea with effort no other events Review of Systems Review of Systems: Yes all other systems are reviewed and are negative Physical Exam 2 Vital Signs: Vital Signs: Last Vital Signs Temp 98.9 F 11/23/24 11:51 Pulse 88 11/23/24 11:51 Resp 18 11/23/24 11:51 BP 149/72 H 11/23/24 11:51 Pulse Ox 96 11/23/24 11:51 O2 Del Method Room Air 11/23/24 11:51 O2 Flow Rate 2 11/22/24 07:57 BMI result Body Mass Index 22.5 Const: Other: Constitutional : Awake, interactive, not in distress Neck : Normal inspection, Supple Cardiovascular : RRR, elevated JVP, trace lower extremity edema Respiratory : improved at bases bilateral air entry, basal crackles, less bilateral scattered wheezes Gastrointestinal: soft, lax, Normal bowel sounds, Non tender Skin : Warm, Dry Neurological : Alert & oriented x3, No focal deficit Objective Data Active Medications Acetaminophen (Acetaminophen 325 Mg Tablet) 650 mg PO Q6H PRN PRN Reason: Pain, Mild 1-3,fever,headache Albuterol/Ipratropium (Albuterol/Iprat 2.5/0.5mg 3 Ml Ampul.Neb) 3 ml INHALE Q4H PRN PRN Reason: Wheezing Albuterol/Ipratropium (Albuterol/Iprat 2.5/0.5mg 3 Ml Ampul.Neb) 3 ml INHALE Q4H [facility] Last Admin: 11/23/24 11:17 Dose: 3 ml Documented By: STEVENSON Amlodipine Besylate (Amlodipine Besylate 10 Mg Tablet) 10 mg PO DAILY [facility]; Protocol Last Admin: 11/23/24 07:53 Dose: 10 mg Documented By: ANIKA Aspirin (Aspirin Enteric Coated 81 Mg Tablet.) 81 mg PO DAILY [facility] Last Admin: 11/23/24 07:53 Dose: 81 mg Documented By: ANIKA Atorvastatin Calcium (Atorvastatin Calcium 40 Mg Tablet) 40 mg PO DAILY [facility] Last Admin: 11/23/24 07:52 Dose: 40 mg Documented By: ANIKA Benzonatate (Benzonatate 100 Mg Capsule) 100 mg PO TID PRN PRN Reason: Cough Calcium Carbonate (Calcium Carbonate 750 Mg Tab.Chew) 750 mg PO Q4H PRN PRN Reason: Heartburn Ceftriaxone Sodium (Ceftriaxone Sodium 1 Gm Vial) 1 gm IVPUSH Q24H [facility] Last Admin: 11/22/24 20:30 Dose: 1 gm Documented By: BERENICE Enoxaparin Sodium (Enoxaparin Sodium 40 Mg/0.4 Ml Syringe) 40 mg SUBCUT Q24H [facility] Last Admin: 11/22/24 21:37 Dose: 40 mg Documented By: BERENICE Escitalopram Oxalate (Escitalopram Oxalate 10 Mg Tablet) 10 mg PO DAILY [facility] Last Admin: 11/23/24 07:53 Dose: 10 mg Documented By: ANIKA Fluticasone Propionate (Fluticasone Propionate Nasal 16 Gm [place]) 1 spray NOSTRIL-B BID [facility] Last Admin: 11/23/24 09:29 Dose: 1 spray Documented By: ANIKA Fluticasone/Vilanterol (Fluticasone/Vilanterol 100/25 Blst.W.Dev) 1 puff INHALE RDAILY [facility] Last Admin: 11/23/24 07:33 Dose: 1 puff Documented By: STEVENSON Furosemide (Furosemide 100 Mg/10 Ml Vial) 80 mg IVPUSH DAILY [facility]; Protocol Last Admin: 11/23/24 08:09 Dose: 80 mg Documented By: ANIKA Furosemide (Furosemide 40 Mg/4 Ml Vial) 40 mg IVPUSH BEDTIME [facility]; Protocol Last Admin: 11/22/24 20:30 Dose: 40 mg Documented By: BERENICE Glucose (Glucose Gel 15 Gm Gel..Gram.) 15 gm PO Q15M PRN; Protocol PRN Reason: per Hypoglycemia Standing Ord. Hydralazine HCl (Hydralazine Hcl 50 Mg Tablet) 100 mg PO TID [facility]; Protocol Last Admin: 11/23/24 07:52 Dose: 100 mg Documented By: ANIKA Dextrose (D10) 250 mls @ 750 mls/hr IV Q15M PRN; Protocol PRN Reason: per Hypoglycemia Standing Ord. Azithromycin 500 mg/ Sodium (Chloride) 250 mls @ 125 mls/hr IV Q24H [facility] Last Infusion: 11/22/24 22:35 Dose: Infused Documented By: AMRIT Vancomycin HCl 750 mg/ Sodium (Chloride) 265 mls @ 265 mls/hr IV Q12H [facility] Last Infusion: 11/23/24 13:20 Dose: Infused Documented By: ANIKA Insulin Glargine (Insulin Glargine,Hum.Rec.Anlog 100 Unit/Ml 10 Ml Vial) 25 unit SUBCUT DAILY [facility] Last Admin: 11/23/24 07:56 Dose: 25 unit Documented By: ANIKA Insulin Human Lispro (Insulin Lispro 100 Unit/Ml 3 Ml Vial) 0 unit SUBCUT QIDAS [facility]; Protocol Last Admin: 11/23/24 12:32 Dose: 10 unit Documented By: ANIKA Insulin Human Lispro (Insulin Lispro 100 Unit/Ml 3 Ml Vial) 7 unit SUBCUT QIDAS [facility] Last Admin: 11/23/24 12:34 Dose: 7 unit Documented By: ANIKA Levalbuterol HCl (Levalbuterol Hcl 1.25 Mg/3 Ml Vial.Neb) 1.25 mg INHALE Q3H PRN PRN Reason: Wheezing Lorazepam (Lorazepam 0.5 Mg Tablet) 0.25 mg PO Q8H PRN PRN Reason: anxiety/restlessness Last Admin: 11/22/24 23:11 Dose: 0.25 mg Documented By: BERENICE Magnesium Hydroxide (Milk Of Magnesia 30 Ml Oral.Susp) 30 ml PO DAILY PRN PRN Reason: Constipation Magnesium Oxide (Magnesium Oxide 400 Mg Tablet) 400 mg PO BIDPC [facility] Last Admin: 11/23/24 07:53 Dose: 400 mg Documented By: ANIKA Melatonin (Melatonin 3 Mg Tablet) 6 mg PO BEDTIME PRN PRN Reason: Insomnia Methylprednisolone Sodium Succinate (Methylprednisolone Sod Succ 40 Mg/Ml Vial) 40 mg IVPUSH Q8H [facility] Last Admin: 11/23/24 06:36 Dose: 40 mg Documented By: BERENICE Metoprolol Succinate (Metoprolol Succinate Er 100 Mg Tab.Er.24h) 100 mg PO DAILY [facility]; Protocol Last Admin: 11/23/24 07:53 Dose: 100 mg Documented By: ANIKA Nicotine (Nicotine 21 Mg Patch.Td24) 21 mg TRANSDERMA DAILY [facility] Last Admin: 11/23/24 07:54 Dose: 21 mg Documented By: ANIKA Omeprazole (Omeprazole 40 Mg Capsule.Dr) 40 mg PO DAILY@0630 [facility] Last Admin: 11/23/24 06:36 Dose: 40 mg Documented By: BERENICE Ondansetron HCl (Ondansetron Hcl 4 Mg/2 Ml Vial) 4 mg IVPUSH Q8H PRN PRN Reason: Nausea and Vomiting Pharmacy Consult (Consult Rx Vancomycin Dosing) 1 each MISCELLANE DAILY [facility] Sodium Bicarbonate (Sodium Bicarbonate 650 Mg Tablet) 650 mg PO BID [facility] Last Admin: 11/23/24 07:52 Dose: 650 mg Documented By: ANIKA Sodium Chloride (0.9 % Sodium Chloride Flush 3 Ml Syringe) 3 ml IVFLUSH QSHIFT [facility] Last Admin: 11/23/24 07:54 Dose: 3 ml Documented By: ANIKA Trazodone HCl (Trazodone Hcl 25 Mg Halftab) 25 mg PO BEDTIME [facility] Last Admin: 11/22/24 20:33 Dose: 25 mg Documented By: BERENICE Trazodone HCl (Trazodone Hcl 100 Mg Tablet) 100 mg PO BEDTIME [facility] Last Admin: 11/22/24 20:33 Dose: 100 mg Documented By: BERENICE Labs 11/22/24 07:02 11/23/24 09:49 Labs: Laboratory Results - last 24 hr 11/22/24 11/22/24 11/22/24 16:16 20:40 20:43 Hold Purple Top Estim Creat Clear Calc Estimated GFR POC Glucose 346 H 439 H* 386 H* Random Vancomycin 11/22/24 11/23/24 11/23/24 21:07 02:35 05:27 Hold Purple Top Estim Creat Clear Calc Estimated GFR POC Glucose 355 H* 230 H Random Vancomycin 13.6 L 11/23/24 11/23/24 07:27 09:49 Hold Purple Top SEE NOTE Estim Creat Clear Calc 69.5 Estimated GFR > 60 POC Glucose 177 H Random Vancomycin Microbiology Microbiology Results: Microbiology 11/21/24 09:05 Blood Culture - Preliminary Blood - Venous No growth after 48 hours. 11/21/24 09:09 Blood Culture - Preliminary Blood - Venous No growth after 48 hours. Assessment and Plan (1) Tobacco use: Status: Acute (2) CHF exacerbation: Status: Acute (3) Acute respiratory failure with hypoxia: Status: Acute (4) Acute bronchospasm: Status: Acute (5) Pneumonia: Status: Acute Plan Patient is a 49-year-old male with a past medical history significant for CHF, HTN, depression, COPD unspecified, YARELIS on CPAP, HLD, type 2 diabetes, PAD, who presented to the ED today due to worsening cough, fever and shortness of breath x2 days. Workup conclusive for acute respiratory failure and sepsis secondary to pneumonia and CHF exacerbation. Patient was given fluid bolus due to sepsis. Acute respiratory failure and sepsis secondary to pneumonia improving chest images concerning for fluid overload and atypical pneumonia sepsis resolved Continue azithromycin and ceftriaxone tessalon TID PRN for cough follow cultures COPD unspecified with acute exacerbation continue levalbuterol Q3H prn Duonebs ATC Q4H Methylprednisone 40 mg Q12 for now CHF exacerbation BNP elevated IV lasix 40mg and 80 mg in morning I\O and BNP Lactic acidosis, multifactorial secondary to hypoperfusion due to CHF exacerbation and albuterol use not due to severe sepsis trended down HTN continue amlodipine, metoprolol and hydralazine YARELIS CPAP at bedtime HLD continue atorvastatin Type 2 DM with acute hyperglycemia Start Lantus sliding scale insulin diabetic diet PAD continue aspirin Tobacco use smoking cessation discussed nicotine patch Full code VTE prophylaxis: Lovenox Patient with acute respiratory failure secondary to pneumonia, COPD and CHF exacerbation requiring overnight stay for IV antibiotics, diuresis and monitoring. Quality Stroke Does the patient have a stroke diagnosis?: No VTE Prior VTE?: No VTE Risk Level:: Medical - moderate - high VTE Device Contraindication: Treatment Not Indicated VTE Drug Contraindication: N/A - Med Ordered
--- NOTE | 2024-11-23 15:43 | MHC.CM.PN ---
This CM met with pt to discuss discharge plans, per pt he is sick of going in and out of the hospital and is working with an agency through [facility] in order to prepare some additional services for him in the home. Pt shared the contacts with this CM: (Ivory Quiroga, community wellness advocate [phone]) and (Nathaly Soriano, Complex care director rn [phone]), messages left for them, awaiting return call, per pt they aren't available on weekends. Hospitalist updated.
[2024-11-23 15:45] LABS: Glucose, Whole Blood 311 mg/dL (60-115)
[2024-11-23 15:45] LABS: Glucose, Whole Blood 303 mg/dL (60-115)
[2024-11-23] MEDS: cefTRIAXone sodium 1 GM VIAL IVPUSH (20:21)
[2024-11-23] MEDS: Azithromycin 500 MG in 0.9 % Sodium Chloride 250 ML 125 MG IV (20:22)
[2024-11-23] MEDS: Furosemide 40 MG/4 ML VIAL IVPUSH (20:22)
[2024-11-23 20:39] LABS: Glucose, Whole Blood 214 mg/dL (60-115)
[2024-11-23 21:39] LABS: Vancomycin Random 17.5 mcg/mL (15-20)
[2024-11-23] MEDS: Enoxaparin Sodium 40 MG/0.4 ML SYRINGE SUBCUT (21:49)
[2024-11-23] MEDS: traZODone HCL 25 MG HALFTAB PO (21:49)
[2024-11-23] MEDS: traZODone HCL 100 MG TABLET PO (21:49)
[2024-11-23] MEDS: LORazepam 0.5 MG TABLET 0.25 MG PO (23:30)
[2024-11-24] VITALS (10 sets, daily range): BP systolic 133–170; BP diastolic 74–82; PULSE 68–87; RESP 15–20; TEMP 36.6–37.2; O2SAT 93–99
[2024-11-24] MEDS: Omeprazole 40 MG CAPSULE.DR PO (06:25)
[2024-11-24] MEDS: Metoprolol Succinate ER 100 MG TAB.ER.24H PO (07:53)
[2024-11-24] MEDS: Escitalopram Oxalate 10 MG TABLET PO (07:53)
[2024-11-24] MEDS: Atorvastatin Calcium 40 MG TABLET PO (07:53)
[2024-11-24] MEDS: Magnesium Oxide 400 MG TABLET PO ×2 (07:53→16:56)
[2024-11-24] MEDS: hydrALAZINE HCl 50 MG TABLET 100 MG PO ×3 (07:53→22:26)
[2024-11-24] MEDS: amLODIPine Besylate 10 MG TABLET PO (07:53)
[2024-11-24] MEDS: Aspirin Enteric Coated 81 MG TABLET.DR PO (07:54)
[2024-11-24] MEDS: Nicotine 21 MG PATCH.TD24 TRANSDERMA (07:54)
[2024-11-24] MEDS: Sodium Bicarbonate 650 MG TABLET PO ×2 (07:54→22:26)
[2024-11-24] MEDS: Furosemide 100 MG/10 ML VIAL 80 MG IVPUSH (07:55)
[2024-11-24] MEDS: Insulin Lispro 100 UNIT/ML 3 ML VIAL SUBCUT ×4 (07:55→22:36)
[2024-11-24] MEDS: methylPREDNISolone Sod Succ 40 MG/ML VIAL IVPUSH (07:55)
[2024-11-24] MEDS: Insulin Lispro 100 UNIT/ML 3 ML VIAL 7 UNIT SUBCUT ×4 (07:56→22:35)
[2024-11-24] MEDS: Insulin Glargine,Hum.rec.anlog 100 UNIT/ML 10 ML VIAL 25 UNIT SUBCUT (07:56)
[2024-11-24] MEDS: 0.9 % Sodium Chloride Flush 3 ML SYRINGE IVFLUSH ×3 (07:57→22:51)
[2024-11-24 08:05] LABS: Glucose, Whole Blood 319 mg/dL (60-115)
[2024-11-24] MEDS: Fluticasone/Vilanterol 100/25 BLST.W.DEV 1 PUFF INHALE (08:13)
[2024-11-24] MEDS: Albuterol/Iprat 2.5/0.5MG 3 ML AMPUL.NEB INHALE ×4 (08:13→19:58)
[2024-11-24] MEDS: cefuroxime axetiL 500 MG TABLET PO ×2 (08:33→22:26)
[2024-11-24] MEDS: Fluticasone Propionate Nasal 16 GM SPRAY 1 SPRAY NOSTRIL-B ×2 (08:35→22:35)
[2024-11-24 09:31] LABS: Creatinine Clr Calc Pharmacy 47.8; Estimated Glomerular Filt Rate 46
--- NOTE | 2024-11-24 12:07 | P.PNIM_ITS ---
Subjective Subjective Date of Service: 11/24/24 Interval History: Seen and evaluated feels little better dyspnea with effort no other events Review of Systems Review of Systems: Yes all other systems are reviewed and are negative Physical Exam 2 Vital Signs: Vital Signs: Last Vital Signs Temp 98.6 F 11/24/24 11:56 Pulse 74 11/24/24 11:56 Resp 19 11/24/24 11:56 BP 153/74 H 11/24/24 11:56 Pulse Ox 93 11/24/24 11:56 O2 Del Method Room Air 11/24/24 11:56 O2 Flow Rate 2 11/24/24 03:45 BMI result Body Mass Index 22.5 Const: Other: Constitutional : Awake, interactive, not in distress Neck : Normal inspection, Supple Cardiovascular : RRR, elevated JVP, trace lower extremity edema Respiratory : improved at bases bilateral air entry, basal crackles, less bilateral scattered wheezes Gastrointestinal: soft, lax, Normal bowel sounds, Non tender Skin : Warm, Dry Neurological : Alert & oriented x3, No focal deficit Objective Data Active Medications Acetaminophen (Acetaminophen 325 Mg Tablet) 650 mg PO Q6H PRN PRN Reason: Pain, Mild 1-3,fever,headache Albuterol/Ipratropium (Albuterol/Iprat 2.5/0.5mg 3 Ml Ampul.Neb) 3 ml INHALE Q4H PRN PRN Reason: Wheezing Albuterol/Ipratropium (Albuterol/Iprat 2.5/0.5mg 3 Ml Ampul.Neb) 3 ml INHALE Q4H [facility] Last Admin: 11/24/24 08:13 Dose: 3 ml Documented By: NACHO Amlodipine Besylate (Amlodipine Besylate 10 Mg Tablet) 10 mg PO DAILY [facility]; Protocol Last Admin: 11/24/24 07:53 Dose: 10 mg Documented By: ANIAK Aspirin (Aspirin Enteric Coated 81 Mg Tablet.) 81 mg PO DAILY [facility] Last Admin: 11/24/24 07:54 Dose: 81 mg Documented By: ANIKA Atorvastatin Calcium (Atorvastatin Calcium 40 Mg Tablet) 40 mg PO DAILY [facility] Last Admin: 11/24/24 07:53 Dose: 40 mg Documented By: ANIKA Azithromycin (Azithromycin 500 Mg Tablet) 500 mg PO Q24H [facility] Benzonatate (Benzonatate 100 Mg Capsule) 100 mg PO TID PRN PRN Reason: Cough Calcium Carbonate (Calcium Carbonate 750 Mg Tab.Chew) 750 mg PO Q4H PRN PRN Reason: Heartburn Cefuroxime Axetil (Cefuroxime Axetil 500 Mg Tablet) 500 mg PO Q12H [facility] Last Admin: 11/24/24 08:33 Dose: 500 mg Documented By: ANIKA Enoxaparin Sodium (Enoxaparin Sodium 40 Mg/0.4 Ml Syringe) 40 mg SUBCUT Q24H [facility] Last Admin: 11/23/24 21:49 Dose: 40 mg Documented By: BERENICE Escitalopram Oxalate (Escitalopram Oxalate 10 Mg Tablet) 10 mg PO DAILY [facility] Last Admin: 11/24/24 07:53 Dose: 10 mg Documented By: ANIKA Fluticasone Propionate (Fluticasone Propionate Nasal 16 Gm [place]) 1 spray NOSTRIL-B BID [facility] Last Admin: 11/24/24 08:35 Dose: 1 spray Documented By: ANIKA Fluticasone/Vilanterol (Fluticasone/Vilanterol 100/25 Blst.W.Dev) 1 puff INHALE RDAILY [facility] Last Admin: 11/24/24 08:13 Dose: 1 puff Documented By: NACHO Furosemide (Furosemide 100 Mg/10 Ml Vial) 80 mg IVPUSH DAILY [facility]; Protocol Last Admin: 11/24/24 07:55 Dose: 80 mg Documented By: ANIKA Furosemide (Furosemide 40 Mg/4 Ml Vial) 40 mg IVPUSH BEDTIME [facility]; Protocol Last Admin: 11/23/24 20:22 Dose: 40 mg Documented By: BERENICE Glucose (Glucose Gel 15 Gm Gel..Gram.) 15 gm PO Q15M PRN; Protocol PRN Reason: per Hypoglycemia Standing Ord. Hydralazine HCl (Hydralazine Hcl 50 Mg Tablet) 100 mg PO TID [facility]; Protocol Last Admin: 11/24/24 07:53 Dose: 100 mg Documented By: ANIKA Dextrose (D10) 250 mls @ 750 mls/hr IV Q15M PRN; Protocol PRN Reason: per Hypoglycemia Standing Ord. Insulin Glargine (Insulin Glargine,Hum.Rec.Anlog 100 Unit/Ml 10 Ml Vial) 25 unit SUBCUT DAILY [facility] Last Admin: 11/24/24 07:56 Dose: 25 unit Documented By: ANIKA Insulin Human Lispro (Insulin Lispro 100 Unit/Ml 3 Ml Vial) 0 unit SUBCUT QIDACHS [facility]; Protocol Last Admin: 11/24/24 07:55 Dose: 10 unit Documented By: NAIKA Insulin Human Lispro (Insulin Lispro 100 Unit/Ml 3 Ml Vial) 7 unit SUBCUT QIDAS [facility] Last Admin: 11/24/24 07:56 Dose: 7 unit Documented By: ANIKA Levalbuterol HCl (Levalbuterol Hcl 1.25 Mg/3 Ml Vial.Neb) 1.25 mg INHALE Q3H PRN PRN Reason: Wheezing Lorazepam (Lorazepam 0.5 Mg Tablet) 0.25 mg PO Q8H PRN PRN Reason: anxiety/restlessness Last Admin: 11/23/24 23:30 Dose: 0.25 mg Documented By: BERENICE Magnesium Hydroxide (Milk Of Magnesia 30 Ml Oral.Susp) 30 ml PO DAILY PRN PRN Reason: Constipation Magnesium Oxide (Magnesium Oxide 400 Mg Tablet) 400 mg PO BIDPC [facility] Last Admin: 11/24/24 07:53 Dose: 400 mg Documented By: ANIKA Melatonin (Melatonin 3 Mg Tablet) 6 mg PO BEDTIME PRN PRN Reason: Insomnia Metoprolol Succinate (Metoprolol Succinate Er 100 Mg Tab.Er.24h) 100 mg PO DAILY [facility]; Protocol Last Admin: 11/24/24 07:53 Dose: 100 mg Documented By: ANIKA Nicotine (Nicotine 21 Mg Patch.Td24) 21 mg TRANSDERMA DAILY [facility] Last Admin: 11/24/24 07:54 Dose: 21 mg Documented By: ANIKA Omeprazole (Omeprazole 40 Mg Capsule.Dr) 40 mg PO DAILY@0630 [facility] Last Admin: 11/24/24 06:25 Dose: 40 mg Documented By: BERENICE Ondansetron HCl (Ondansetron Hcl 4 Mg/2 Ml Vial) 4 mg IVPUSH Q8H PRN PRN Reason: Nausea and Vomiting Prednisone (Prednisone 20 Mg Tablet) 40 mg PO DAILY [facility] Last Admin: 11/24/24 08:34 Dose: Not Given Documented By: ANIKA Non-Admin Reason: iv already administered Sodium Bicarbonate (Sodium Bicarbonate 650 Mg Tablet) 650 mg PO BID [facility] Last Admin: 11/24/24 07:54 Dose: 650 mg Documented By: ANIKA Sodium Chloride (0.9 % Sodium Chloride Flush 3 Ml Syringe) 3 ml IVFLUSH QSHIFT [facility] Last Admin: 11/24/24 07:57 Dose: 3 ml Documented By: ANIKA Trazodone HCl (Trazodone Hcl 25 Mg Halftab) 25 mg PO BEDTIME [facility] Last Admin: 11/23/24 21:49 Dose: 25 mg Documented By: BERENICE Trazodone HCl (Trazodone Hcl 100 Mg Tablet) 100 mg PO BEDTIME [facility] Last Admin: 11/23/24 21:49 Dose: 100 mg Documented By: BERENICE Labs 11/22/24 07:02 11/24/24 08:43 Labs: Laboratory Results - last 24 hr 11/23/24 11/23/24 11/23/24 11:48 15:41 20:35 Estim Creat Clear Calc Estimated GFR POC Glucose 311 H 303 H 214 H Random Vancomycin 11/23/24 11/24/24 11/24/24 21:14 07:22 08:43 Estim Creat Clear Calc 47.8 Estimated GFR 46 POC Glucose 319 H Random Vancomycin 17.5 Microbiology Microbiology Results: Microbiology 11/21/24 09:05 Blood Culture - Preliminary Blood - Venous No growth after 48 hours. 11/21/24 09:09 Blood Culture - Preliminary Blood - Venous No growth after 48 hours. Assessment and Plan (1) CHF exacerbation: Status: Acute (2) Acute respiratory failure with hypoxia: Status: Acute (3) Acute bronchospasm: Status: Acute (4) Pneumonia: Status: Acute Plan Patient is a 49-year-old male with a past medical history significant for CHF, HTN, depression, COPD unspecified, YARELIS on CPAP, HLD, type 2 diabetes, PAD, who presented to the ED today due to worsening cough, fever and shortness of breath x2 days. Workup conclusive for acute respiratory failure and sepsis secondary to pneumonia and CHF exacerbation. Patient was given fluid bolus due to sepsis. Acute respiratory failure and sepsis secondary to pneumonia improving chest images concerning for fluid overload and atypical pneumonia sepsis resolved Switch to PO azithromycin and ceftin DC Vancomycin tessalon TID PRN for cough follow cultures COPD unspecified with acute exacerbation continue levalbuterol Q3H prn Duonebs ATC Q4H DC Methylprednisone 40 mg , start Prednisone. CHF exacerbation BNP elevated IV lasix 40mg and 80 mg in morning I\O and BNP Lactic acidosis, multifactorial secondary to hypoperfusion due to CHF exacerbation and albuterol use not due to severe sepsis trended down HTN continue amlodipine, metoprolol and hydralazine YARELIS CPAP at bedtime HLD continue atorvastatin Type 2 DM with acute hyperglycemia Start Lantus sliding scale insulin diabetic diet PAD continue aspirin Tobacco use smoking cessation discussed nicotine patch Full code VTE prophylaxis: Lovenox Patient with acute respiratory failure secondary to pneumonia, COPD and CHF exacerbation requiring overnight stay for IV antibiotics, diuresis and monitoring. Quality Stroke Does the patient have a stroke diagnosis?: No VTE Prior VTE?: No VTE Risk Level:: Medical - moderate - high VTE Device Contraindication: Treatment Not Indicated VTE Drug Contraindication: N/A - Med Ordered
[2024-11-24 13:23] LABS: Glucose, Whole Blood 277 mg/dL (60-115)
[2024-11-24 19:44] LABS: Glucose, Whole Blood 244 mg/dL (60-115)
[2024-11-24] MEDS: Furosemide 40 MG/4 ML VIAL IVPUSH (22:26)
[2024-11-24] MEDS: traZODone HCL 25 MG HALFTAB PO (22:26)
[2024-11-24] MEDS: traZODone HCL 100 MG TABLET PO (22:26)
[2024-11-24] MEDS: Azithromycin 500 MG TABLET PO (22:27)
[2024-11-24] MEDS: Enoxaparin Sodium 40 MG/0.4 ML SYRINGE SUBCUT (22:27)
[2024-11-25] VITALS (10 sets, daily range): BP systolic 130–167; BP diastolic 41–81; PULSE 76–88; RESP 14–20; TEMP 36.7–37.3; O2SAT 93–100
[2024-11-25] MEDS: Omeprazole 40 MG CAPSULE.DR PO (05:29)
[2024-11-25 07:09] LABS: Glucose, Whole Blood 147 mg/dL (60-115)
[2024-11-25 07:13] LABS: Glucose, Whole Blood 235 mg/dL (60-115)
[2024-11-25 07:22] LABS: Creatinine Clr Calc Pharmacy 49.7; Estimated Glomerular Filt Rate 48
[2024-11-25] MEDS: Albuterol/Iprat 2.5/0.5MG 3 ML AMPUL.NEB INHALE ×3 (07:43→19:45)
[2024-11-25] MEDS: Fluticasone/Vilanterol 100/25 BLST.W.DEV 1 PUFF INHALE (07:46)
[2024-11-25] MEDS: Metoprolol Succinate ER 100 MG TAB.ER.24H PO (07:56)
[2024-11-25] MEDS: Aspirin Enteric Coated 81 MG TABLET.DR PO (07:56)
[2024-11-25] MEDS: predniSONE 20 MG TABLET 40 MG PO (07:57)
[2024-11-25] MEDS: hydrALAZINE HCl 50 MG TABLET 100 MG PO ×3 (07:57→20:45)
[2024-11-25] MEDS: Atorvastatin Calcium 40 MG TABLET PO (07:57)
[2024-11-25] MEDS: Magnesium Oxide 400 MG TABLET PO ×2 (07:57→17:44)
[2024-11-25] MEDS: amLODIPine Besylate 10 MG TABLET PO (07:58)
[2024-11-25] MEDS: Insulin Glargine,Hum.rec.anlog 100 UNIT/ML 10 ML VIAL 25 UNIT SUBCUT (07:58)
[2024-11-25] MEDS: Escitalopram Oxalate 10 MG TABLET PO (07:58)
[2024-11-25] MEDS: cefuroxime axetiL 500 MG TABLET PO ×2 (07:58→20:45)
[2024-11-25] MEDS: Insulin Lispro 100 UNIT/ML 3 ML VIAL 7 UNIT SUBCUT ×4 (08:00→20:45)
[2024-11-25] MEDS: Insulin Lispro 100 UNIT/ML 3 ML VIAL SUBCUT ×4 (08:00→20:45)
[2024-11-25] MEDS: 0.9 % Sodium Chloride Flush 3 ML SYRINGE IVFLUSH ×3 (08:01→20:46)
[2024-11-25] MEDS: Nicotine 21 MG PATCH.TD24 TRANSDERMA (08:06)
[2024-11-25] MEDS: Fluticasone Propionate Nasal 16 GM SPRAY 1 SPRAY NOSTRIL-B ×2 (10:45→20:46)
--- NOTE | 2024-11-25 11:02 | MHC.CM.PN ---
CM met with Patient regarding dc planning.Patient provided CM with the Contact information for Ivory @ [phone], from [facility] Community Wellness Advocate Program and asked that CM speak with Ivory. Per Ivory, patient had been living with his Brother but he cannot return there. Ivory made a referral to [facility](a alf for Patients with high risk diagnoses) on 11/22/2024. Ivory will reach out to [facility] for bed availability and have A contact CM. CM will follow for dc planning.
[2024-11-25 11:09] LABS: Glucose, Whole Blood 225 mg/dL (60-115)
--- NOTE | 2024-11-25 14:15 | P.PNIM_ITS ---
Subjective Subjective Date of Service: 11/25/24 Interval History: Seen and evaluated feels better dyspnea with effort no other events Physical Exam 2 Vital Signs: Vital Signs: Last Vital Signs Temp 99.0 F 11/25/24 11:27 Pulse 83 11/25/24 11:27 Resp 20 11/25/24 11:27 BP 162/74 H 11/25/24 11:27 Pulse Ox 97 11/25/24 11:27 O2 Del Method Room Air 11/25/24 11:27 O2 Flow Rate 2 11/25/24 03:03 BMI result Body Mass Index 22.5 Const: Other: Constitutional : Awake, interactive, not in distress Neck : Normal inspection, Supple Cardiovascular : RRR, elevated JVP, trace lower extremity edema Respiratory : improved at bases bilateral air entry, basal crackles, less bilateral scattered wheezes Gastrointestinal: soft, lax, Normal bowel sounds, Non tender Skin : Warm, Dry Neurological : Alert & oriented x3, No focal deficit Objective Data Active Medications Acetaminophen (Acetaminophen 325 Mg Tablet) 650 mg PO Q6H PRN PRN Reason: Pain, Mild 1-3,fever,headache Albuterol/Ipratropium (Albuterol/Iprat 2.5/0.5mg 3 Ml Ampul.Neb) 3 ml INHALE Q4H PRN PRN Reason: Wheezing Albuterol/Ipratropium (Albuterol/Iprat 2.5/0.5mg 3 Ml Ampul.Neb) 3 ml INHALE Q4H [facility] Last Admin: 11/25/24 11:19 Dose: 3 ml Documented By: ROCIO Amlodipine Besylate (Amlodipine Besylate 10 Mg Tablet) 10 mg PO DAILY [facility]; Protocol Last Admin: 11/25/24 07:58 Dose: 10 mg Documented By: MIGUELANGEL Aspirin (Aspirin Enteric Coated 81 Mg Tablet.) 81 mg PO DAILY [facility] Last Admin: 11/25/24 07:56 Dose: 81 mg Documented By: MIGUELANGEL Atorvastatin Calcium (Atorvastatin Calcium 40 Mg Tablet) 40 mg PO DAILY [facility] Last Admin: 11/25/24 07:57 Dose: 40 mg Documented By: MIGUELANGEL Azithromycin (Azithromycin 500 Mg Tablet) 500 mg PO Q24H [facility] Last Admin: 11/24/24 22:27 Dose: 500 mg Documented By: STEPHIE Benzonatate (Benzonatate 100 Mg Capsule) 100 mg PO TID PRN PRN Reason: Cough Calcium Carbonate (Calcium Carbonate 750 Mg Tab.Chew) 750 mg PO Q4H PRN PRN Reason: Heartburn Cefuroxime Axetil (Cefuroxime Axetil 500 Mg Tablet) 500 mg PO Q12H [facility] Last Admin: 11/25/24 07:58 Dose: 500 mg Documented By: MIGUELANGEL Enoxaparin Sodium (Enoxaparin Sodium 40 Mg/0.4 Ml Syringe) 40 mg SUBCUT Q24H [facility] Last Admin: 11/24/24 22:27 Dose: 40 mg Documented By: STEPHIE Escitalopram Oxalate (Escitalopram Oxalate 10 Mg Tablet) 10 mg PO DAILY [facility] Last Admin: 11/25/24 07:58 Dose: 10 mg Documented By: MIGUELANGEL Fluticasone Propionate (Fluticasone Propionate Nasal 16 Gm [place]) 1 spray NOSTRIL-B BID [facility] Last Admin: 11/25/24 10:45 Dose: 1 spray Documented By: MIGUELANGEL Fluticasone/Vilanterol (Fluticasone/Vilanterol 100/25 Blst.W.Dev) 1 puff INHALE RDAILY [facility] Last Admin: 11/25/24 07:46 Dose: 1 puff Documented By: ROCIO Glucose (Glucose Gel 15 Gm Gel..Gram.) 15 gm PO Q15M PRN; Protocol PRN Reason: per Hypoglycemia Standing Ord. Hydralazine HCl (Hydralazine Hcl 50 Mg Tablet) 100 mg PO TID [facility]; Protocol Last Admin: 11/25/24 07:57 Dose: 100 mg Documented By: MIGUELANGEL Dextrose (D10) 250 mls @ 750 mls/hr IV Q15M PRN; Protocol PRN Reason: per Hypoglycemia Standing Ord. Insulin Glargine (Insulin Glargine,Hum.Rec.Anlog 100 Unit/Ml 10 Ml Vial) 25 unit SUBCUT DAILY [facility] Last Admin: 11/25/24 07:58 Dose: 25 unit Documented By: MIGUELANGEL Insulin Human Lispro (Insulin Lispro 100 Unit/Ml 3 Ml Vial) 0 unit SUBCUT QIDACHS [facility]; Protocol Last Admin: 11/25/24 11:19 Dose: 6 unit Documented By: MIGUELANGEL Insulin Human Lispro (Insulin Lispro 100 Unit/Ml 3 Ml Vial) 7 unit SUBCUT QIDACHS [facility] Last Admin: 11/25/24 11:19 Dose: 7 unit Documented By: MIGUELANGEL Levalbuterol HCl (Levalbuterol Hcl 1.25 Mg/3 Ml Vial.Neb) 1.25 mg INHALE Q3H PRN PRN Reason: Wheezing Lorazepam (Lorazepam 0.5 Mg Tablet) 0.25 mg PO Q8H PRN PRN Reason: anxiety/restlessness Last Admin: 11/23/24 23:30 Dose: 0.25 mg Documented By: BERENICE Magnesium Hydroxide (Milk Of Magnesia 30 Ml Oral.Susp) 30 ml PO DAILY PRN PRN Reason: Constipation Magnesium Oxide (Magnesium Oxide 400 Mg Tablet) 400 mg PO BIDPC [facility] Last Admin: 11/25/24 07:57 Dose: 400 mg Documented By: MIGUELANGEL Melatonin (Melatonin 3 Mg Tablet) 6 mg PO BEDTIME PRN PRN Reason: Insomnia Metoprolol Succinate (Metoprolol Succinate Er 100 Mg Tab.Er.24h) 100 mg PO DAILY [facility]; Protocol Last Admin: 11/25/24 07:56 Dose: 100 mg Documented By: MIGUELANGEL Nicotine (Nicotine 21 Mg Patch.Td24) 21 mg TRANSDERMA DAILY [facility] Last Admin: 11/24/24 07:54 Dose: 21 mg Documented By: ANIKA Omeprazole (Omeprazole 40 Mg Capsule.Dr) 40 mg PO DAILY@0630 [facility] Last Admin: 11/25/24 05:29 Dose: 40 mg Documented By: STEPHIE Ondansetron HCl (Ondansetron Hcl 4 Mg/2 Ml Vial) 4 mg IVPUSH Q8H PRN PRN Reason: Nausea and Vomiting Prednisone (Prednisone 20 Mg Tablet) 40 mg PO DAILY [facility] Last Admin: 11/25/24 07:57 Dose: 40 mg Documented By: MIGUELANGEL Sodium Chloride (0.9 % Sodium Chloride Flush 3 Ml Syringe) 3 ml IVFLUSH QSHIFT [facility] Last Admin: 11/25/24 08:01 Dose: 3 ml Documented By: MIGUELANGEL Trazodone HCl (Trazodone Hcl 25 Mg Halftab) 25 mg PO BEDTIME [facility] Last Admin: 11/24/24 22:26 Dose: 25 mg Documented By: STEPHIE Trazodone HCl (Trazodone Hcl 100 Mg Tablet) 100 mg PO BEDTIME [facility] Last Admin: 11/24/24 22:26 Dose: 100 mg Documented By: STEPHIE Labs 11/22/24 07:02 11/25/24 06:21 Labs: Laboratory Results - last 24 hr 11/24/24 11/24/24 11/25/24 15:33 20:47 06:21 Estim Creat Clear Calc 49.7 Estimated GFR 48 POC Glucose 244 H 147 H 11/25/24 11/25/24 07:10 11:05 Estim Creat Clear Calc Estimated GFR POC Glucose 235 H 225 H Microbiology Microbiology Results: Microbiology 11/19/24 19:41 Blood Culture - Final Blood - Venous No growth after 5 days. Assessment and Plan (1) Tobacco use: Status: Acute (2) CHF exacerbation: Status: Acute (3) Acute respiratory failure with hypoxia: Status: Acute (4) Acute bronchospasm: Status: Acute Plan Patient is a 49-year-old male with a past medical history significant for CHF, HTN, depression, COPD unspecified, YARELIS on CPAP, HLD, type 2 diabetes, PAD, who presented to the ED today due to worsening cough, fever and shortness of breath x2 days. Workup conclusive for acute respiratory failure and sepsis secondary to pneumonia and CHF exacerbation. Patient was given fluid bolus due to sepsis. Acute respiratory failure and sepsis secondary to pneumonia improving chest images concerning for fluid overload and atypical pneumonia sepsis resolved Switch to PO azithromycin and ceftin DC Vancomycin tessalon TID PRN for cough follow cultures COPD unspecified with acute exacerbation continue levalbuterol Q3H prn Duonebs ATC Q4H DC Methylprednisone 40 mg , start Prednisone. CHF exacerbation BNP elevated IV lasix 40mg and 80 mg in morning I\O and BNP Lactic acidosis, multifactorial secondary to hypoperfusion due to CHF exacerbation and albuterol use not due to severe sepsis trended down HTN continue amlodipine, metoprolol and hydralazine YARELIS CPAP at bedtime HLD continue atorvastatin Type 2 DM with acute hyperglycemia Start Lantus sliding scale insulin diabetic diet PAD continue aspirin Tobacco use smoking cessation discussed nicotine patch Full code VTE prophylaxis: Lovenox Patient with acute respiratory failure secondary to pneumonia, COPD and CHF exacerbation requiring overnight stay for IV antibiotics, diuresis and monitoring. Quality Stroke Does the patient have a stroke diagnosis?: No VTE Prior VTE?: No VTE Risk Level:: Medical - moderate - high VTE Device Contraindication: Treatment Not Indicated VTE Drug Contraindication: N/A - Med Ordered
[2024-11-25 16:54] LABS: Glucose, Whole Blood 291 mg/dL (60-115)
[2024-11-25 20:43] LABS: Glucose, Whole Blood 250 mg/dL (60-115)
[2024-11-25] MEDS: traZODone HCL 25 MG HALFTAB PO (20:45)
[2024-11-25] MEDS: traZODone HCL 100 MG TABLET PO (20:45)
[2024-11-25] MEDS: Azithromycin 500 MG TABLET PO (20:45)
[2024-11-25] MEDS: LORazepam 0.5 MG TABLET 0.25 MG PO (20:56)
[2024-11-25] MEDS: Enoxaparin Sodium 40 MG/0.4 ML SYRINGE SUBCUT (22:14)
[2024-11-26] VITALS (9 sets, daily range): BP systolic 142–160; BP diastolic 64–80; PULSE 75–94; RESP 16–20; TEMP 36.4–36.7; O2SAT 93–96
[2024-11-26] MEDS: Omeprazole 40 MG CAPSULE.DR PO (06:09)
[2024-11-26 07:29] LABS: Glucose, Whole Blood 182 mg/dL (60-115)
[2024-11-26] MEDS: Fluticasone/Vilanterol 100/25 BLST.W.DEV 1 PUFF INHALE (07:37)
[2024-11-26] MEDS: Escitalopram Oxalate 10 MG TABLET PO (07:37)
[2024-11-26] MEDS: Metoprolol Succinate ER 100 MG TAB.ER.24H PO (07:37)
[2024-11-26] MEDS: Aspirin Enteric Coated 81 MG TABLET.DR PO (07:37)
[2024-11-26] MEDS: Magnesium Oxide 400 MG TABLET PO ×2 (07:37→16:19)
[2024-11-26] MEDS: hydrALAZINE HCl 50 MG TABLET 100 MG PO ×3 (07:37→20:38)
[2024-11-26] MEDS: Albuterol/Iprat 2.5/0.5MG 3 ML AMPUL.NEB INHALE ×4 (07:37→20:11)
[2024-11-26] MEDS: amLODIPine Besylate 10 MG TABLET PO (07:37)
[2024-11-26] MEDS: predniSONE 20 MG TABLET 40 MG PO (07:37)
[2024-11-26] MEDS: cefuroxime axetiL 500 MG TABLET PO ×2 (07:37→20:38)
[2024-11-26] MEDS: Nicotine 21 MG PATCH.TD24 TRANSDERMA (07:38)
[2024-11-26] MEDS: Atorvastatin Calcium 40 MG TABLET PO (07:38)
[2024-11-26] MEDS: Insulin Glargine,Hum.rec.anlog 100 UNIT/ML 10 ML VIAL 25 UNIT SUBCUT (07:39)
[2024-11-26] MEDS: Insulin Lispro 100 UNIT/ML 3 ML VIAL 7 UNIT SUBCUT ×4 (07:39→20:39)
[2024-11-26] MEDS: Insulin Lispro 100 UNIT/ML 3 ML VIAL SUBCUT ×4 (07:39→20:38)
[2024-11-26] MEDS: 0.9 % Sodium Chloride Flush 3 ML SYRINGE IVFLUSH ×3 (07:40→20:43)
[2024-11-26] MEDS: Fluticasone Propionate Nasal 16 GM SPRAY 1 SPRAY NOSTRIL-B ×2 (07:46→22:41)
[2024-11-26 08:33] LABS: Creatinine Clr Calc Pharmacy 64.3; Estimated Glomerular Filt Rate > 60
[2024-11-26 11:10] LABS: Glucose, Whole Blood 251 mg/dL (60-115)
--- NOTE | 2024-11-26 11:43 | MHC.CM.PN ---
Addendum entered by Ashley Palencia 11/26/24 16:01: This CM received a phone call from [facility] nurse Jasen Mullen, he requested this CM send him the pts H&P to review. Jasen states they will have a bed for the pt at their program, and after they review the pts clinicals, they will let us know tomorrow if he is accepted. Addendum entered by Ashley Palencia 11/26/24 12:17: This CM placed a call to Nath[facility] the complex ocular care technician pt has been working with in the community, voicemail left, awaiting return call. Original Note: Pt remains medically cleared for discharge, pending placement in [facility]. This CM placed a call to community wellness contact, Ivory mccarthy, voicemails have been left, awaiting a return call. PT evaluated pt, and are recommending outpatient PT.
--- NOTE | 2024-11-26 12:36 | P.PNIM_ITS ---
Subjective Subjective Date of Service: 11/26/24 Interval History: Seen and evaluated feels better dyspnea with effort no other events Review of Systems Review of Systems: Yes all other systems are reviewed and are negative Physical Exam 2 Vital Signs: Vital Signs: Last Vital Signs Temp 98.1 F 11/26/24 11:27 Pulse 88 11/26/24 11:27 Resp 20 11/26/24 11:27 BP 142/64 H 11/26/24 11:27 Pulse Ox 95 11/26/24 11:27 O2 Del Method Room Air 11/26/24 11:27 O2 Flow Rate 2 11/26/24 03:23 BMI result Body Mass Index 22.5 Const: Other: Constitutional : Awake, interactive, not in distress Neck : Normal inspection, Supple Cardiovascular : RRR, elevated JVP, trace lower extremity edema Respiratory : improved at bases bilateral air entry, basal crackles, less bilateral scattered wheezes Gastrointestinal: soft, lax, Normal bowel sounds, Non tender Skin : Warm, Dry Neurological : Alert & oriented x3, No focal deficit Objective Data Active Medications Acetaminophen (Acetaminophen 325 Mg Tablet) 650 mg PO Q6H PRN PRN Reason: Pain, Mild 1-3,fever,headache Albuterol/Ipratropium (Albuterol/Iprat 2.5/0.5mg 3 Ml Ampul.Neb) 3 ml INHALE Q4H PRN PRN Reason: Wheezing Albuterol/Ipratropium (Albuterol/Iprat 2.5/0.5mg 3 Ml Ampul.Neb) 3 ml INHALE Q4H [facility] Last Admin: 11/26/24 11:14 Dose: 3 ml Documented By: DESHAUN Amlodipine Besylate (Amlodipine Besylate 10 Mg Tablet) 10 mg PO DAILY [facility]; Protocol Last Admin: 11/26/24 07:37 Dose: 10 mg Documented By: JACIEL Aspirin (Aspirin Enteric Coated 81 Mg Tablet.) 81 mg PO DAILY [facility] Last Admin: 11/26/24 07:37 Dose: 81 mg Documented By: JACIEL Atorvastatin Calcium (Atorvastatin Calcium 40 Mg Tablet) 40 mg PO DAILY [facility] Last Admin: 11/26/24 07:38 Dose: 40 mg Documented By: JACIEL Azithromycin (Azithromycin 500 Mg Tablet) 500 mg PO Q24H [facility] Last Admin: 11/25/24 20:45 Dose: 500 mg Documented By: LAY Benzonatate (Benzonatate 100 Mg Capsule) 100 mg PO TID PRN PRN Reason: Cough Calcium Carbonate (Calcium Carbonate 750 Mg Tab.Chew) 750 mg PO Q4H PRN PRN Reason: Heartburn Cefuroxime Axetil (Cefuroxime Axetil 500 Mg Tablet) 500 mg PO Q12H [facility] Last Admin: 11/26/24 07:37 Dose: 500 mg Documented By: JACIEL Enoxaparin Sodium (Enoxaparin Sodium 40 Mg/0.4 Ml Syringe) 40 mg SUBCUT Q24H [facility] Last Admin: 11/25/24 22:14 Dose: 40 mg Documented By: LAY Escitalopram Oxalate (Escitalopram Oxalate 10 Mg Tablet) 10 mg PO DAILY [facility] Last Admin: 11/26/24 07:37 Dose: 10 mg Documented By: JACIEL Fluticasone Propionate (Fluticasone Propionate Nasal 16 Gm [place]) 1 spray NOSTRIL-B BID [facility] Last Admin: 11/26/24 07:46 Dose: 1 spray Documented By: JACIEL Fluticasone/Vilanterol (Fluticasone/Vilanterol 100/25 Blst.W.Dev) 1 puff INHALE RDAILY [facility] Last Admin: 11/26/24 07:37 Dose: 1 puff Documented By: DESHAUN Glucose (Glucose Gel 15 Gm Gel..Gram.) 15 gm PO Q15M PRN; Protocol PRN Reason: per Hypoglycemia Standing Ord. Hydralazine HCl (Hydralazine Hcl 50 Mg Tablet) 100 mg PO TID [facility]; Protocol Last Admin: 11/26/24 07:37 Dose: 100 mg Documented By: JACIEL Dextrose (D10) 250 mls @ 750 mls/hr IV Q15M PRN; Protocol PRN Reason: per Hypoglycemia Standing Ord. Insulin Glargine (Insulin Glargine,Hum.Rec.Anlog 100 Unit/Ml 10 Ml Vial) 25 unit SUBCUT DAILY [facility] Last Admin: 11/26/24 07:39 Dose: 25 unit Documented By: JACIEL Insulin Human Lispro (Insulin Lispro 100 Unit/Ml 3 Ml Vial) 0 unit SUBCUT QIDACHS [facility]; Protocol Last Admin: 11/26/24 11:29 Dose: 8 unit Documented By: JACIEL Insulin Human Lispro (Insulin Lispro 100 Unit/Ml 3 Ml Vial) 7 unit SUBCUT QIDACHS [facility] Last Admin: 11/26/24 11:30 Dose: 7 unit Documented By: JACIEL Levalbuterol HCl (Levalbuterol Hcl 1.25 Mg/3 Ml Vial.Neb) 1.25 mg INHALE Q3H PRN PRN Reason: Wheezing Lorazepam (Lorazepam 0.5 Mg Tablet) 0.25 mg PO Q8H PRN PRN Reason: anxiety/restlessness Last Admin: 11/25/24 20:56 Dose: 0.25 mg Documented By: LAY Magnesium Hydroxide (Milk Of Magnesia 30 Ml Oral.Susp) 30 ml PO DAILY PRN PRN Reason: Constipation Magnesium Oxide (Magnesium Oxide 400 Mg Tablet) 400 mg PO BIDPC [facility] Last Admin: 11/26/24 07:37 Dose: 400 mg Documented By: JACIEL Melatonin (Melatonin 3 Mg Tablet) 6 mg PO BEDTIME PRN PRN Reason: Insomnia Metoprolol Succinate (Metoprolol Succinate Er 100 Mg Tab.Er.24h) 100 mg PO DAILY [facility]; Protocol Last Admin: 11/26/24 07:37 Dose: 100 mg Documented By: JACIEL Nicotine (Nicotine 21 Mg Patch.Td24) 21 mg TRANSDERMA DAILY [facility] Last Admin: 11/26/24 07:38 Dose: 21 mg Documented By: JACIEL Omeprazole (Omeprazole 40 Mg Capsule.Dr) 40 mg PO DAILY@0630 [facility] Last Admin: 11/26/24 06:09 Dose: 40 mg Documented By: LAY Ondansetron HCl (Ondansetron Hcl 4 Mg/2 Ml Vial) 4 mg IVPUSH Q8H PRN PRN Reason: Nausea and Vomiting Prednisone (Prednisone 20 Mg Tablet) 40 mg PO DAILY [facility] Last Admin: 11/26/24 07:37 Dose: 40 mg Documented By: JACIEL Sodium Chloride (0.9 % Sodium Chloride Flush 3 Ml Syringe) 3 ml IVFLUSH QSHIFT [facility] Last Admin: 11/26/24 07:40 Dose: 3 ml Documented By: JACIEL Trazodone HCl (Trazodone Hcl 25 Mg Halftab) 25 mg PO BEDTIME [facility] Last Admin: 11/25/24 20:45 Dose: 25 mg Documented By: LAY Trazodone HCl (Trazodone Hcl 100 Mg Tablet) 100 mg PO BEDTIME [facility] Last Admin: 11/25/24 20:45 Dose: 100 mg Documented By: LAY Labs 11/22/24 07:02 11/26/24 06:57 Labs: Laboratory Results - last 24 hr 11/25/24 11/25/24 11/26/24 16:45 20:39 06:57 Hold Purple Top SEE NOTE Estim Creat Clear Calc 64.3 Estimated GFR > 60 POC Glucose 291 H 250 H 11/26/24 11/26/24 07:12 11:06 Hold Purple Top Estim Creat Clear Calc Estimated GFR POC Glucose 182 H 251 H Microbiology Microbiology Results: Microbiology 11/21/24 09:05 Blood Culture - Final Blood - Venous No growth after 5 days. 11/21/24 09:09 Blood Culture - Final Blood - Venous No growth after 5 days. Assessment and Plan (1) Tobacco use: Status: Acute (2) Acute respiratory failure with hypoxia: Status: Acute (3) Pneumonia: Status: Acute (4) CHF exacerbation: Status: Acute Plan Patient is a 49-year-old male with a past medical history significant for CHF, HTN, depression, COPD unspecified, YARELIS on CPAP, HLD, type 2 diabetes, PAD, who presented to the ED today due to worsening cough, fever and shortness of breath x2 days. Workup conclusive for acute respiratory failure and sepsis secondary to pneumonia and CHF exacerbation. Patient was given fluid bolus due to sepsis. Acute respiratory failure and sepsis secondary to pneumonia improving chest images concerning for fluid overload and atypical pneumonia sepsis resolved Switch to PO azithromycin and ceftin DC Vancomycin tessalon TID PRN for cough follow cultures COPD unspecified with acute exacerbation continue levalbuterol Q3H prn Duonebs ATC Q4H DC Methylprednisone 40 mg , start Prednisone. CHF exacerbation BNP elevated IV lasix 40mg and 80 mg in morning I\O and BNP Lactic acidosis, multifactorial secondary to hypoperfusion due to CHF exacerbation and albuterol use not due to severe sepsis trended down HTN continue amlodipine, metoprolol and hydralazine YARELIS CPAP at bedtime HLD continue atorvastatin Type 2 DM with acute hyperglycemia Start Lantus sliding scale insulin diabetic diet PAD continue aspirin Tobacco use smoking cessation discussed nicotine patch Full code VTE prophylaxis: Lovenox Patient with acute respiratory failure secondary to pneumonia, COPD and CHF exacerbation requiring overnight stay for IV antibiotics, diuresis and monitoring. Quality Stroke Does the patient have a stroke diagnosis?: No VTE Prior VTE?: No VTE Risk Level:: Medical - moderate - high VTE Device Contraindication: Treatment Not Indicated VTE Drug Contraindication: N/A - Med Ordered
[2024-11-26 16:19] LABS: Glucose, Whole Blood 136 mg/dL (60-115)
[2024-11-26 20:26] LABS: Glucose, Whole Blood 112 mg/dL (60-115)
[2024-11-26] MEDS: Azithromycin 500 MG TABLET PO (20:38)
[2024-11-26] MEDS: traZODone HCL 100 MG TABLET PO (20:38)
[2024-11-26] MEDS: traZODone HCL 25 MG HALFTAB PO (20:43)
[2024-11-26] MEDS: Enoxaparin Sodium 40 MG/0.4 ML SYRINGE SUBCUT (22:41)
[2024-11-26] MEDS: Acetaminophen 325 MG TABLET 650 MG PO (22:42)
[2024-11-27] VITALS (14 sets, daily range): BP systolic 132–165; BP diastolic 65–82; PULSE 76–97; RESP 16–20; TEMP 36.1–36.8; O2SAT 90–97
[2024-11-27] MEDS: Omeprazole 40 MG CAPSULE.DR PO (06:08)
[2024-11-27 06:57] LABS: Creatinine Clr Calc Pharmacy 65.9; Estimated Glomerular Filt Rate > 60
[2024-11-27] MEDS: 0.9 % Sodium Chloride Flush 3 ML SYRINGE IVFLUSH ×2 (07:53→17:07)
[2024-11-27] MEDS: Atorvastatin Calcium 40 MG TABLET PO (07:53)
[2024-11-27] MEDS: Insulin Glargine,Hum.rec.anlog 100 UNIT/ML 10 ML VIAL 25 UNIT SUBCUT (07:54)
[2024-11-27] MEDS: Insulin Lispro 100 UNIT/ML 3 ML VIAL 7 UNIT SUBCUT ×3 (07:54→21:11)
[2024-11-27] MEDS: Magnesium Oxide 400 MG TABLET PO ×2 (07:54→17:06)
[2024-11-27] MEDS: Insulin Lispro 100 UNIT/ML 3 ML VIAL SUBCUT ×3 (07:54→21:12)
[2024-11-27 07:55] LABS: Glucose, Whole Blood 155 mg/dL (60-115)
[2024-11-27] MEDS: cefuroxime axetiL 500 MG TABLET PO ×2 (07:55→21:10)
[2024-11-27] MEDS: amLODIPine Besylate 10 MG TABLET PO (07:55)
[2024-11-27] MEDS: Escitalopram Oxalate 10 MG TABLET PO (07:55)
[2024-11-27] MEDS: Aspirin Enteric Coated 81 MG TABLET.DR PO (07:55)
[2024-11-27] MEDS: hydrALAZINE HCl 50 MG TABLET 100 MG PO ×3 (07:55→21:10)
[2024-11-27] MEDS: predniSONE 20 MG TABLET 40 MG PO (07:55)
[2024-11-27] MEDS: Nicotine 21 MG PATCH.TD24 TRANSDERMA (07:56)
[2024-11-27] MEDS: Metoprolol Succinate ER 100 MG TAB.ER.24H PO (07:56)
[2024-11-27] MEDS: Fluticasone Propionate Nasal 16 GM SPRAY 1 SPRAY NOSTRIL-B ×2 (09:15→21:17)
[2024-11-27] MEDS: Albuterol/Iprat 2.5/0.5MG 3 ML AMPUL.NEB INHALE ×3 (11:36→19:44)
[2024-11-27 11:40] LABS: Glucose, Whole Blood 107 mg/dL (60-115)
--- NOTE | 2024-11-27 11:49 | PM.EVENT ---
Event Note Date of Service: 11/27/24 Event Note: Day team follow up Seen and examined remains stable for d/c await rehab bed changed lasix to PO continue other care Time Spent With Patient Time: Total time managing care of this patient today ____ minutes.
[2024-11-27] MEDS: Furosemide 40 MG TABLET 80 MG PO (13:44)
--- NOTE | 2024-11-27 14:57 | MHC.CM.PN ---
This CM attempted to get in contact with [facility] staff x multiple attempts throughout the day, unable to reach via telephone, multiple voicemails were left, and an email was sent. This CM received an email reply from Shelley, she requested this CM complete and fax a referral to them as the previous one sent by Ivory (wellness advocate) on Monday was an old version. Shelley states it will be reviewed and they should let us know by tomorrow am (11/28) if they can accept the pt. Referral completed and sent to [facility]. Part of application requested a covid test within 72 hours of pt discharging, notified and has ordered covid test, will fax results once available.
[2024-11-27 17:05] LABS: Glucose, Whole Blood 199 mg/dL (60-115)
[2024-11-27] MEDS: Furosemide 40 MG TABLET PO (17:06)
[2024-11-27] MEDS: Azithromycin 500 MG TABLET PO (21:10)
[2024-11-27] MEDS: traZODone HCL 25 MG HALFTAB PO (21:10)
[2024-11-27] MEDS: traZODone HCL 100 MG TABLET PO (21:10)
[2024-11-27] MEDS: Enoxaparin Sodium 40 MG/0.4 ML SYRINGE SUBCUT (21:17)
[2024-11-27 23:11] LABS: Glucose, Whole Blood 252 mg/dL (60-115)
[2024-11-28] VITALS (12 sets, daily range): BP systolic 130–174; BP diastolic 61–84; PULSE 83–97; RESP 17–20; TEMP 36.4–37.2; O2SAT 92–100
[2024-11-28 00:34] LABS: COVID-19 Test Negative (Negative); IDNOW Serial# 6674DD1D
[2024-11-28] MEDS: Omeprazole 40 MG CAPSULE.DR PO (06:17)
[2024-11-28] MEDS: 0.9 % Sodium Chloride Flush 3 ML SYRINGE IVFLUSH ×2 (06:19→07:53)
[2024-11-28 06:48] LABS: Creatinine Clr Calc Pharmacy 57.5; Estimated Glomerular Filt Rate 57
[2024-11-28 07:14] LABS: Glucose, Whole Blood 246 mg/dL (60-115)
[2024-11-28] MEDS: Albuterol/Iprat 2.5/0.5MG 3 ML AMPUL.NEB INHALE ×5 (07:43→23:16)
[2024-11-28] MEDS: Fluticasone/Vilanterol 100/25 BLST.W.DEV 1 PUFF INHALE (07:43)
[2024-11-28] MEDS: Insulin Glargine,Hum.rec.anlog 100 UNIT/ML 10 ML VIAL 25 UNIT SUBCUT (07:49)
[2024-11-28] MEDS: Insulin Lispro 100 UNIT/ML 3 ML VIAL 7 UNIT SUBCUT ×4 (07:50→20:33)
[2024-11-28] MEDS: Insulin Lispro 100 UNIT/ML 3 ML VIAL SUBCUT ×4 (07:50→20:32)
[2024-11-28] MEDS: Fluticasone Propionate Nasal 16 GM SPRAY 1 SPRAY NOSTRIL-B ×2 (07:51→20:34)
[2024-11-28] MEDS: cefuroxime axetiL 500 MG TABLET PO ×2 (07:51→20:33)
[2024-11-28] MEDS: amLODIPine Besylate 10 MG TABLET PO (07:51)
[2024-11-28] MEDS: Aspirin Enteric Coated 81 MG TABLET.DR PO (07:51)
[2024-11-28] MEDS: Escitalopram Oxalate 10 MG TABLET PO (07:51)
[2024-11-28] MEDS: Metoprolol Succinate ER 100 MG TAB.ER.24H PO (07:51)
[2024-11-28] MEDS: predniSONE 20 MG TABLET 40 MG PO (07:51)
[2024-11-28] MEDS: hydrALAZINE HCl 50 MG TABLET 100 MG PO ×3 (07:52→20:34)
[2024-11-28] MEDS: Magnesium Oxide 400 MG TABLET PO ×2 (07:52→16:56)
[2024-11-28] MEDS: Atorvastatin Calcium 40 MG TABLET PO (07:52)
[2024-11-28] MEDS: Furosemide 40 MG TABLET 80 MG PO (07:52)
[2024-11-28] MEDS: Nicotine 21 MG PATCH.TD24 TRANSDERMA (07:53)
[2024-11-28 11:02] LABS: Glucose, Whole Blood 127 mg/dL (60-115)
--- NOTE | 2024-11-28 11:46 | PM.EVENT ---
Event Note Date of Service: 11/28/24 Event Note: Seen and examined No complaints awaiting auth for transfer to [facility] continue current care Time Spent With Patient Time: Total time managing care of this patient today ____ minutes.
--- NOTE | 2024-11-28 13:57 | MHC.CM.PN ---
CM RECEIVED CALL BACK FROM [facility] NURSE TRISTIAN WHO REPORTS THEY CAN ACCEPT PT TOMORROW AND WOULD LIKE PT TO HAVE FOLLOW-UP PCP APPT, MONICA GODINEZA FOR SN, COVID TEST RESULTS AND DC SUMMARY. CM HAS PREBOOKED LYFT FOR TOMORROW 11/28 AT 0900 [facility] MEDICAL RESPITE [address] [place] [address]
[2024-11-28 16:53] LABS: Glucose, Whole Blood 162 mg/dL (60-115)
[2024-11-28] MEDS: Furosemide 40 MG TABLET PO (16:56)
--- NOTE | 2024-11-28 18:11 | PC.NURSE ---
MED tele monitor removed as per MD order , IV removed , pt is clear for discharge tomorrow AM
[2024-11-28] MEDS: traZODone HCL 25 MG HALFTAB PO (20:32)
[2024-11-28] MEDS: traZODone HCL 100 MG TABLET PO (20:32)
[2024-11-28] MEDS: Azithromycin 500 MG TABLET PO (20:32)
[2024-11-28 20:49] LABS: Glucose, Whole Blood 205 mg/dL (60-115)
[2024-11-29] MEDS: Enoxaparin Sodium 40 MG/0.4 ML SYRINGE SUBCUT (00:36)
[2024-11-29 03:55] VITALS: BP 166/81; PULSE 92; RESP 18; TEMP 36.5; O2SAT 95
[2024-11-29] MEDS: Omeprazole 40 MG CAPSULE.DR PO (05:34)
[2024-11-29 07:20] VITALS: BP 154/82; PULSE 85; RESP 16; TEMP 36.4; O2SAT 97
[2024-11-29 07:20] LABS: Glucose, Whole Blood 293 mg/dL (60-115)
[2024-11-29 07:23] LABS: Creatinine Clr Calc Pharmacy 48.1; Estimated Glomerular Filt Rate 46
[2024-11-29] MEDS: Fluticasone/Vilanterol 100/25 BLST.W.DEV 1 PUFF INHALE (07:32)
[2024-11-29 07:33] VITALS: PULSE 85; RESP 16; O2SAT 97
[2024-11-29] MEDS: Albuterol/Iprat 2.5/0.5MG 3 ML AMPUL.NEB INHALE (07:33)
[2024-11-29] MEDS: Insulin Lispro 100 UNIT/ML 3 ML VIAL 7 UNIT SUBCUT (07:45)
[2024-11-29] MEDS: Insulin Lispro 100 UNIT/ML 3 ML VIAL SUBCUT (07:45)
[2024-11-29] MEDS: amLODIPine Besylate 10 MG TABLET PO (07:47)
[2024-11-29] MEDS: Escitalopram Oxalate 10 MG TABLET PO (07:49)
[2024-11-29] MEDS: Furosemide 40 MG TABLET 80 MG PO (07:49)
[2024-11-29] MEDS: Aspirin Enteric Coated 81 MG TABLET.DR PO (07:49)
[2024-11-29] MEDS: Magnesium Oxide 400 MG TABLET PO (07:49)
[2024-11-29] MEDS: Atorvastatin Calcium 40 MG TABLET PO (07:49)
[2024-11-29] MEDS: Nicotine 21 MG PATCH.TD24 TRANSDERMA (07:50)
[2024-11-29] MEDS: hydrALAZINE HCl 50 MG TABLET 100 MG PO (07:50)
[2024-11-29] MEDS: Metoprolol Succinate ER 100 MG TAB.ER.24H PO (07:50)
[2024-11-29] MEDS: predniSONE 20 MG TABLET 40 MG PO (07:50)
[2024-11-29] MEDS: cefuroxime axetiL 500 MG TABLET PO (07:50)
[2024-11-29] MEDS: Fluticasone Propionate Nasal 16 GM SPRAY 1 SPRAY NOSTRIL-B (07:51)
[2024-11-29] MEDS: Insulin Glargine,Hum.rec.anlog 100 UNIT/ML 10 ML VIAL 25 UNIT SUBCUT (07:52)
--- NOTE | 2024-11-29 08:07 | MHC.CM.PN ---
PT DISCHARGING T [facility] [address] [facility] AT 0900 VIA FARZANA MOJICA/HOSPITALIST AWARE.
--- NOTE | 2024-11-29 08:11 | P.DS_ITS ---
DS: Providers Provider Date of Service: 11/29/24 <Omar Ortiz MD - Last Filed: 11/29/24 08:11> Date of admission: 11/19/24 22:48 <Suzi Wilcox MD - Last Filed: 11/26/24 15:26> Date of discharge: 11/29/24 <Omar Ortiz MD - Last Filed: 11/29/24 08:11> Primary care physician: Zari Henry MD <Suzi Wilcox MD - Last Filed: 11/26/24 15:26> DS: Diagnosis Discharge Diagnosis (1) Tobacco use: Status: Acute <Suzi Wilcox MD - Last Filed: 11/26/24 15:26> (2) Acute respiratory failure with hypoxia: Status: Acute <Suzi Wilcox MD - Last Filed: 11/26/24 15:26> (3) Pneumonia: Status: Acute <Suzi Wilcox MD - Last Filed: 11/26/24 15:26> (4) CHF exacerbation: Status: Acute <Suzi Wilcox MD - Last Filed: 11/26/24 15:26> DS: Summary Hospital Course Hospital Course: Admission note HPI Patient is a 49-year-old male with a past medical history significant for CHF, HTN, depression, COPD unspecified, YARELIS on CPAP, HLD, type 2 diabetes, PAD, who presented to the ED today due to worsening cough, fever and shortness of breath x2 days. He reports he does have shortness of breath with exertion at baseline however this has exacerbated. He also complains of some chills or nausea with diarrhea about 3 to 4 times a day for the past few days, last episode was yesterday. In addition he complains of some bilateral lower extremity edema which is not present currently. He denies any recent sick contacts but reports that he was with his grandson who was in preschool recently. Hospital course The patient was treated for the following: # Acute respiratory failure and sepsis secondary to pneumonia as chest images concerning for fluid overload and atypical pneumonia. Treated with IV Antibiot ics of Ceftriaxone and Azithromycin with Vancomycin for few days before switching him to PO Azithromycin and ceftin. tessalon TID PRN for cough as his blood cultures remaine negative. To discharge on Ceftin and Azithromycin. # COPD unspecified with acute exacerbation treated with Steroids, Bronchodilator nebulizer as he was weaned O2 down to room air at rest. # CHF exacerbation responded well to IV lasix 40mg and 80 mg morning and night. to restart home Lasix dose. # Lactic acidosis, multifactorial secondary to hypoperfusion due to CHF exacerbation and albuterol use not due to severe sepsis. trended down # YARELIS, CPAP at bedtime # Type 2 DM with acute hyperglycemia, Started Lantus with sliding scale insulin as his glucose readings elevated likely with steroid usage. Continue Lantus with SSI upon discharge # Tobacco use, smoking cessation discussed, he is interested in nicotine patchs Discharge plan Continue Azithromycin and Ceftin Contine Prednisone Continue home dose lasix along rest of your home medications Start Lantus insulin along with SSI Pt seen and examined on the day of discharge. He is stable for d/c. <Suzi Wilcox MD - Last Filed: 11/26/24 15:26> Time Attestation Discharge Coordination Time (in mins): 50 <Omar Ortiz MD - Last Filed: 11/29/24 08:11> Quality: Safe Use of Opioids Does Pt have an Active Cancer Diagnosis on the Problem List?: No <Omar Ortiz MD - Last Filed: 11/29/24 08:11> Quality: Stroke Does the patient have a stroke diagnosis?: No <Omar Ortiz MD - Last Filed: 11/29/24 08:11> Physical Exam Vital Signs: Vital Signs: Last Vital Signs Temp 98.1 F 11/26/24 11:27 Pulse 88 11/26/24 11:27 Resp 20 11/26/24 11:27 BP 142/64 H 11/26/24 11:27 Pulse Ox 95 11/26/24 11:27 O2 Del Method Room Air 11/26/24 11:27 O2 Flow Rate 2 11/26/24 03:23 BMI result Body Mass Index 22.5 <Suzi Wilcox MD - Last Filed: 11/26/24 15:26> Const: Other: Constitutional : Awake, interactive, not in distress Neck : Normal inspection, Supple Cardiovascular : RRR, elevated JVP, trace lower extremity edema Respiratory : improved at bases bilateral air entry, basal crackles, less bilateral scattered wheezes Gastrointestinal: soft, lax, Normal bowel sounds, Non tender Skin : Warm, Dry Neurological : Alert & oriented x3, No focal deficit <Suzi Wilcox MD - Last Filed: 11/26/24 15:26> DS: Data Data Completed and Pending Completed studies during hospitalization [Text1]: Procedures Assistance with Respiratory Ventilation, Less than 24 Consecutive Hours, Continuous Positive Airway Pressure (06/21/24) Detoxification Services for Substance Abuse Treatment (04/26/24) Excision of Esophagus, Via Natural or Artificial Opening Endoscopic, Diagnostic (04/26/24) Excision of Stomach, Pylorus, Via Natural or Artificial Opening Endoscopic, Diagnostic (04/26/24) Introduction of Remdesivir Anti-infective into Peripheral Vein, Percutaneous Approach, [employer] (12/22/23) <Suzi Wilcox MD - Last Filed: 11/26/24 15:26> Labs on day of discharge: Laboratory Results - last 24 hr 11/25/24 11/25/24 11/26/24 16:45 20:39 06:57 Hold Purple Top SEE NOTE Creatinine 1.19 Estim Creat Clear Calc 64.3 Estimated GFR > 60 POC Glucose 291 H 250 H 11/26/24 11/26/24 07:12 11:06 Hold Purple Top Creatinine Estim Creat Clear Calc Estimated GFR POC Glucose 182 H 251 H <Suzi Wilcox MD - Last Filed: 11/26/24 15:26> Imaging Chest x-ray: Radiologist's impression: ITS Impressions Chest X-Ray 11/19/24 16:45 IMPRESSION: Diffuse peribronchial thickening suspected, with more confluent segmental opacity in the right midlung highly suggestive of pneumonia. No effusion. Electronically signed by: Bony Ta MD 11/19/2024 05:00 [place] [facility] [place]Suzi Wilcox MD - Last Filed: 11/26/24 15:26> Discharge Plan Discharge Anticipated Discharge Date/Time: 11/29/24 09:00 <Suzi Wilcox MD - Last Filed: 11/26/24 15:26> Patient Disposition: [facility] <Suzi Wilcox MD - Last Filed: 11/26/24 15:26> Discharge Diagnosis: sepsis, pneumonia, copd, chf <Suzi Wilcox MD - Last Filed: 11/26/24 15:26> sepsis, pneumonia, copd, chf <Omar Ortiz MD - Last Filed: 11/29/24 08:11> Referrals: A MEDICAL RESPITE [Other] - 1 Day [facility] [Outside] - 1 Week (NURSING HOME) Zari Henry MD [Primary Care Provider] - 12/05/24 10:30 am (A follow up appointment is scheduled. Please call the office if you need to reschedule ) <Suzi Wilcox MD - Last Filed: 11/26/24 15:26> Discharge Medications: New insulin glargine [Lantus U-100 Insulin] 100 unit/mL Solution 15 unit subcut DAILY Qty: 10 0RF prednisone 20 mg Tablet 40 mg PO DAILY Qty: 6 0RF nicotine 21 mg/24 hr Patch 24 Hour 21 mg transdermal DAILY Qty: 90 0RF cefuroxime axetil 500 mg Tablet 500 mg PO Q12H Qty: 10 0RF azithromycin 500 mg Tablet 500 mg PO Q24H Qty: 10 0RF Continued hydralazine 100 mg tablet 100 mg PO TID 30 Days Qty: 90 5RF trazodone 50 mg tablet 100 mg PO BEDTIME escitalopram oxalate 10 mg tablet 10 mg PO DAILY atorvastatin 40 mg tablet 40 mg PO DAILY metoprolol succinate 100 mg tablet extended release 24 hr 100 mg PO DAILY magnesium oxide 400 mg (241.3 mg magnesium) Tablet 400 mg PO BIDPC Qty: 60 0RF fluticasone propion-salmeterol [Advair Diskus] 250-50 mcg/dose blister with device 1 ea inhalation BID amlodipine 5 mg tablet 10 mg PO DAILY omeprazole 40 mg capsule,delayed release(DR/EC) 40 mg PO DAILY@0630 fluticasone propionate 50 mcg/actuation [place],Suspension 1 spray intranasal BID Qty: 16 0RF furosemide 40 mg tablet 80 mg PO DAILY Rx Instructions: IN THE MORNING furosemide 40 mg tablet 40 mg PO BEDTIME albuterol sulfate 90 mcg/actuation HFA aerosol inhaler 2 puff inhalation Q4H PRN (Reason: bronchospasm) (DME) Omnipod 5 G6 Intro Kit (Gen 5) Cartridge SUBCUT insulin lispro 100 unit/mL solution 100 unit DIRECTED Rx Instructions: INJECT 100 UNITS DIRECTED SEE ADMIN INSTRUCTIONS. USE PER INSULIN PUMP aspirin 81 mg tablet,delayed release (DR/EC) 81 mg PO DAILY <Suzi Wilcox MD - Last Filed: 11/26/24 15:26> Discharge Orders: Discharge Order (Routine); Ordered 11/29/24 Ordered By: Omar Ortiz <Suzi Wilcox MD - Last Filed: 11/26/24 15:26> Stand Alone Forms: Patient Portal Discharge page <Suzi Wilcox MD - Last Filed: 11/26/24 15:26> Print Language: Portuguese <Suzi Wilcox MD - Last Filed: 11/26/24 15:26> Care Plan Goals: To stay healthy and out of the hospital. <Suzi Wilcox MD - Last Filed: 11/26/24 15:26> Health Concerns: See discharge summary <Suzi Wilcox MD - Last Filed: 11/26/24 15:26> Plan of Treatment: See discharge summary <Suzi Wilcox MD - Last Filed: 11/26/24 15:26> Assessment: See discharge summary <Suzi Wilcox MD - Last Filed: 11/26/24 15:26>
--- NOTE | 2024-11-29 13:06 | W.MHC.F2F ---
Service Date Service Date: 11/29/24 Encounter Date of encounter: 11/29/24 Reasons for Services Signs and symptoms assessed: fluid status breathing status Reason for detention: CV/CP assess and/or care and medication management MD Overseeing Care: Zari Henry Homebound: Leaving the home is medically contraindicated at this time without the asist of a device and/or another person due th the listed conditions above and below. Reason homebound: weakness related to hospital stay and other Certification: Based on the above findings, I certify that this patient is confined to the home and needs intermittent detention care, physical therapy and/or speech therapy, or continues to need occupational therapy. The patient is under my care, and I have initiated the establishment of the plan of care. The patient will be followed by a physician who will periodically review the plan of care. Time Spent With Patient Time: Total time managing care of this patient today ____ minutes.
== END 2024-11-29 09:00 | disposition home or self-care (01) | DRG 720 ==
LOC: HO.ED 20:24 → HO.EDOVER 22:55 → HO.IMC 11-20 09:23
PROVIDERS: Internal Medicine; Student in an Organized Health Care Education/Training Program; Admitting Provider Student in an Organized Health Care Education/Training Program; Emergency Provider Emergency Medicine Emergency Medical Services; PCP Internal Medicine; Visit Provider Family Medicine
DX: A41.9 Sepsis, unspecified organism (principal); J96.00 Acute respiratory failure, unspecified whether with hypoxia or hypercapnia; I50.33 Acute on chronic diastolic (congestive) heart failure; E87.21 Acute metabolic acidosis; J44.0 Chronic obstructive pulmonary disease with (acute) lower respiratory infection; E11.22 Type 2 diabetes mellitus with diabetic chronic kidney disease; E11.51 Type 2 diabetes mellitus with diabetic peripheral angiopathy without gangrene; I13.0 Hypertensive heart and chronic kidney disease with heart failure and stage 1 through stage 4 chronic kidney disease, or unspecified chronic kidney disease; N18.1 Chronic kidney disease, stage 1; F17.210 Nicotine dependence, cigarettes, uncomplicated; E78.5 Hyperlipidemia, unspecified; G47.33 Obstructive sleep apnea (adult) (pediatric); Z71.6 Tobacco abuse counseling; E11.65 Type 2 diabetes mellitus with hyperglycemia; J44.1 Chronic obstructive pulmonary disease with (acute) exacerbation; Z20.822 Contact with and (suspected) exposure to COVID-19; Z79.4 Long term (current) use of insulin; Z79.51 Long term (current) use of inhaled steroids; Z79.82 Long term (current) use of aspirin; Z79.899 Other long term (current) drug therapy
CPT/HCPCS: 0241U; 36415; 71045; 71250; 80048; 80053; 80202; 82010; 82565; 82803; 82947; 83036; 83605; 83690; 83880; 84484; 85025; 85027; 85730; 87040; 87147; 87205; 87633; 87635; 93005; 94640; 94660; 97161; 99285; J0456; J0696; J1650; J1885; J1940; J2405; J2919; J3370; J3371

== ENCOUNTER → 2024-11-19 16:02 | Outpatient (BNV) | payer OTHER, SELFPAY | PROVIDERS: Emergency Provider Emergency Medicine Emergency Medical Services; PCP Internal Medicine; Visit Provider Radiology Diagnostic Radiology | DX: J18.9 Pneumonia, unspecified organism (principal) | CPT/HCPCS: 71045 ==

== ENCOUNTER → 2024-11-19 20:24 | Outpatient (BNV) | payer OTHER, SELFPAY | PROVIDERS: Admitting Provider Student in an Organized Health Care Education/Training Program; Emergency Provider Emergency Medicine Emergency Medical Services; PCP Internal Medicine; Visit Provider Internal Medicine Cardiovascular Disease | DX: R94.31 Abnormal electrocardiogram [ECG] [EKG] (principal) | CPT/HCPCS: 93010 ==

== ENCOUNTER → 2024-11-19 22:48 | Outpatient (BNV) | payer OTHER, SELFPAY | PROVIDERS: Admitting Provider Student in an Organized Health Care Education/Training Program; Emergency Provider Emergency Medicine Emergency Medical Services; PCP Internal Medicine; Visit Provider Physician Assistant | DX: Z72.0 Tobacco use (principal); I50.9 Heart failure, unspecified; J96.01 Acute respiratory failure with hypoxia; J98.01 Acute bronchospasm | CPT/HCPCS: 99232; 99233; 99499 ==

== ENCOUNTER → 2024-12-05 14:24 | Outpatient (BNVA) | payer OTHER, SELFPAY | PROVIDERS: PCP Internal Medicine; Visit Provider Nurse Practitioner Family | DX: I13.0 Hypertensive heart and chronic kidney disease with heart failure and stage 1 through stage 4 chronic kidney disease, or unspecified chronic kidney disease (principal); I50.33 Acute on chronic diastolic (congestive) heart failure; N18.1 Chronic kidney disease, stage 1; E11.22 Type 2 diabetes mellitus with diabetic chronic kidney disease; G47.33 Obstructive sleep apnea (adult) (pediatric); J44.9 Chronic obstructive pulmonary disease, unspecified; R60.9 Edema, unspecified; F17.210 Nicotine dependence, cigarettes, uncomplicated; Z99.89 Dependence on other enabling machines and devices; Z79.899 Other long term (current) drug therapy | CPT/HCPCS: 99212 ==

== ENCOUNTER 2024-12-10 14:12 | Outpatient (REF) | payer OTHER, SELFPAY ==
[2024-12-10 14:23] LABS: MANUAL DIFF FLAG NO
--- OUTSIDE RECORDS SUMMARY | 2024-12-10 15:07 | XMS_ITS | Continuity of Care Document ---
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 Name Role Phone Zari Henry MD Primary Care Physician [phone] Encounter [facility] [place] Date(s): 12/07/24 - 12/08/[address] [address]- Discharge Disposition: A-D/C Home Attending Physician: Mildred Kwan MD Admitting Physician: Saloni Bell MD Referring Physician: Not on Staff, Referring MD Encounter Type: Disch IP Allergies, Adverse Reactions, Alerts Substance Criticality Severity Reaction Reaction Severity Status metFORMIN Active Trulicity Active Immunizations Given and Recorded Vaccine Date Status Refusal Reason influenza virus vaccine, inactivated 07/22/22 Give n Medications Albuterol (Eqv-Proventil HFA) 90 mcg/inh inhalation aerosol 2 puffs, Inhalation, Every 6 hours, # 6.7 Gm, 0 Refills, Maintenance, 07/25/22 3:49:00 PM EDT, [facility], Partial fill upon patient request if the prescription is for a schedule II opioid drug., 165, cm, 04/11/22 8:29:00 EDT, Height, 59, kg, 04/07/22 22:23:00 EDT, Dry Weight Start Date: 07/25/22 Status: Ordered Quantity: 6.7 Unit: g Repeat number: 1 amLODIPine 10 mg oral tablet 10 mg, 1, tablet, By Mouth, Daily, # 30 tablet, Refills 0, Tot. Refills 0, Maintenance, 04/11/22 11:16:00 AM EDT, Route to Pharmacy Electronically, [facility], Partial fill upon patient request if the prescription is for a schedule II opioid drug., 165, cm, 04/11/22 8:29:00 EDT, Height, 59, kg, 04/07/22 22:23:00 EDT, Dry Weight Start Date: 04/11/22 Status: Ordered Quantity: 30.0 Unit: tablet Repeat number: 1 amLODIPine 10 mg oral tablet 10 mg, Tablet, By Mouth, Hold for: SBP <100, 12/08/24 9:00:00 AM EST Start Date: 12/08/24 Stop Date: 12/08/24 Status: Completed Repeat number: 1 aspirin 81 mg oral delayed release tablet 81 mg, 1, tablet, By Mouth, Daily, # 30 tablet, Refills 0, Maintenance, 04/10/23 10:37:00 PM EDT, Partial fill upon patient request if the prescription is for a schedule II opioid drug. Start Date: 04/10/23 Status: Ordered Quantity: 30.0 Unit: tablet Repeat number: 1 cephalexin monohydrate 500 mg oral tablet 1 tablet = 500 mg, By Mouth, 4 times a day, for 7 days, # 28 tablet, 0 Refills, Acute 12/15/24 9:41:00 AM EST, 12/08/24 9:41:00 AM EST, Tablet, [facility], Partial fill upon patient request if the prescription is for a schedule II opioid drug., 165, cm, 12/08/24 6:30:00 EST, Height, 67.9, kg, 12/07/24 17:29:00 EST, Dry Weight Start Date: 12/08/24 Stop Date: 12/15/24 Status: Ordered Quantity: 28.0 Unit: tablet Repeat number: 1 escitalopram 10 mg oral tablet 1 tablet = 10 mg, By Mouth, Daily, # 90 tablet, 0 Refills, Maintenance, 04/10/22 3:54:00 PM EDT, Tablet, Partial fill upon patient request if the prescription is for a schedule II opioid drug. Start Date: 04/10/22 Status: Ordered Quantity: 90.0 Unit: tablet Repeat number: 1 gabapentin 300 mg oral capsule 300 mg, 1, capsule, By Mouth, 3 times a day, # 90 capsule, Refills 5, Maintenance, 04/07/22 10:36:00 PM EDT, Partial fill upon patient request if the prescription is for a schedule II opioid drug. Start Date: 04/07/22 Status: Ordered Quantity: 90.0 Unit: capsule Repeat number: 1 gabapentin 300 mg oral capsule 300 mg, Capsule, By Mouth, 12/08/24 9:00:00 AM EST Start Date: 12/08/24 Stop Date: 12/08/24 Status: Completed Repeat number: 1 Lantus 100 u/ml subcutaneous solution 0 Refills, Maintenance, 12/06/24 5:49:00 PM EST, Partial fill upon patient request if the prescription is for a schedule II opioid drug. Start Date: 12/06/24 Status: Ordered Repeat number: 1 Lasix 20 mg oral tablet 40 mg, By Mouth, Daily at bedtime, # 30 tablet, Refills 0, Maintenance, 04/10/23 10:36:00 PM EDT, Partial fill upon patient request if the prescription is for a schedule II opioid drug. Start Date: 04/10/23 Status: Ordered Quantity: 30.0 Unit: tablet Repeat number: 1 Lipitor 40 mg oral tablet 1 tablet = 40 mg, By Mouth, Daily, # 30 tablet, 0 Refills, Maintenance, 04/08/22 3:19:00 AM EDT, Tablet, Partial fill upon patient request if the prescription is for a schedule II opioid drug. Start Date: 04/08/22 Status: Ordered Quantity: 30.0 Unit: tablet Repeat number: 1 nicotine 21 mg/24 hr transdermal film, extended release 1 patch, Topically, Daily, # 30 patch, 0 Refills, Maintenance, 12/06/24 5:49:00 PM EST, Patch, Partial fill upon patient request if the prescription is for a schedule II opioid drug. Start Date: 12/06/24 Status: Ordered Quantity: 30.0 Unit: patch Repeat number: 1 nitroglycerin 0.3 mg sublingual tablet See Instructions, PRN for chest pain, 1 tablet Sublingual, take PRN for chest pain (if you need to take >1, call PCP), # 30 tablet, 0 Refills, Maintenance, 04/11/22 11:08:00 AM EDT, Tablet, [facility], Partial fill upon patient request if the prescription is for a schedule II opioiddrug., 165, cm, 04/11/22 8:29:00 EDT, Height, 59, kg, 04/07/22 22:23:00 EDT, Dry Weight Start Date: 04/11/22 Status: Ordered Quantity: 30.0 Unit: tablet Repeat number: 1 pantoprazole 40 mg oral delayed release tablet = 40 mg, By Mouth, Daily, # 30 each, 0 Refills, Maintenance, 07/25/22 3:49:00 PM EDT, EC Tablet, 165, cm, 04/11/22 8:29:00 EDT, Height, 59, kg, 04/07/22 22:23:00 EDT, Dry Weight Start Date: 07/25/22 Stop Date: 08/24/22 Status: Ordered Quantity: 30.0 Unit: each Repeat number: 1 podofilox 0.5% topical solution 1 application, Topically, 2 times a day, use for 3 days, withhold for 4 days, then repeat cycle up to 4 times, # 3.5 mL, 0 Refills, Maintenance, 12/06/24 5:49:00 PM EST, Solution, Partial fill upon patient request if the prescription is for a schedule II opioid drug. Start Date: 12/06/24 Status: Ordered Quantity: 3.5 Unit: mL Repeat number: 1 sucralfate 1 gm oral tablet Refills 0, Maintenance, 12/06/24 5:49:00 PM EST, Partial fill upon patient request if the prescription is for a schedule II opioid drug. Start Date: 12/06/24 Status: Ordered Repeat number: 1 Toprol XL 100 mg oral tablet, extended release 100 mg, 1, tablet, By Mouth, Daily, # 30 tablet, Refills 0, Maintenance, 04/08/22 3:20:00 AM EDT, Partial fill upon patient request if the prescription is for a schedule II opioid drug. Start Date: 04/08/22 Status: Ordered Quantity: 30.0 Unit: tablet Repeat number: 1 Toprol XL 100 mg oral tablet, extended release 100 mg, XL Tablet, By Mouth, 12/08/24 9:00:00 AM EST Start Date: 12/08/24 Stop Date: 12/08/24 Status: Completed Repeat number: 1 torsemide 20 mg oral tablet 2 tablet = 40 mg, By Mouth, 2 times a day, # 120 tablet, 0 Refills, Maintenance, 12/08/24 10:17:00 AMEST, Tablet, [facility], Partial fill upon patient request if the prescription is fora schedule II opioid drug., 165, cm, 12/08/24 9:55:00 EST, Height, 67.9, kg, 12/07/24 17:29:00 EST,Dry Weight Start Date: 12/08/24 Stop Date: 01/07/25 Status: Ordered Quantity: 120.0 Unit: tablet Repeat number: 1 traZODone 50 mg oral tablet 100 mg, By Mouth, Daily at bedtime, # 15 tablet, Refills 0, Maintenance, 04/07/22 10:37:00 PM EDT, Partial fill upon patient request if the prescription is for a schedule II opioid drug. Start Date: 04/07/22 Status: Ordered Quantity: 15.0 Unit: tablet Repeat number: 1 Results Radiology Reports * Exam Date Time Procedure Performing Provider Status 12/07/24 3:33 PM US Renal Bladder Teri , Emily; Auth (V erified) Notes: (US Renal Bladder) Reason For Exam: Other: RESULT: US Renal Bladder US Renal Bladder Reason: Other:; Clinical Question(s): Acute Renal Failure; Order Comment: US Retroperitoneum Complete Prep COMPARISON: None. FINDINGS: Right kidney: 11.7 cm in length. No hydronephrosis. Normal parenchymal thickness and echotexture. Borderline increased echogenicity relative to the liver. No stones. No suspicious mass. Left kidney: 11.6 cm in length. No hydronephrosis. Normal parenchymal thickness and echotexture. Borderline increased echogenicity. No stones. No suspicious mass. Urinary bladder: Partially distended, unremarkable. Bilateral ureteral jets are visualized. IMPRESSION: No hydronephrosis. There is borderline increased echogenicity of the renal cortex -- which can be seen with decreased renal function or medical renal disease. WSN: [id number] Ordering Physician: Mary Black Dictated By: Domonique Up MD Dictated Date/Time: 12/07/24 4:48 pm Reviewed By: Domonique Up MD Signed By: Domonique Up MD Signed Date/Time: 12/07/24 4:48 pm Transcribed By: SARIKA Transcribed Date/Time: 12/07/24 4:45 pm * Exam Date Time Procedure Performing Provider Status 12/07/24 6:18 AM Foot 2 Views Right Svetlana Wolfe; Auth ( Verified) Notes: (Foot 2 Views Right) Reason For Exam: cellulitis;Infection RESULT: Foot 2 Views Right Tibia/Fibula 2 Views Right, Foot 2 Views Right INDICATION: Reason: Infection; cellulitis; Clinical Question(s): Other: TECHNIQUE: AP and lateral tibia and fibula. AP, oblique, lateral of the foot. COMPARISON: None. FINDINGS: There is no fracture or focal bony lesion. No bone destruction or periosteal reaction.. The ankle joint is grossly normal. No abnormality of the joints of the foot. There is soft tissue swelling of dorsum of the foot. No gas or opaque foreign body in soft tissues.. IMPRESSION: 1. No bone or joint abnormality. 2. Soft tissue swelling dorsum of foot. WSN: [id number] Ordering Physician: Mary Black Dictated By: Bandar Negrete MD Dictated Date/Time: 12/07/24 7:17 am Reviewed By: Bandar Negrete MD Signed By: Bandar Negrete MD Signed Date/Time: 12/07/24 7:17 am Transcribed By: SARIKA Transcribed Date/Time: 12/07/24 7:16 am * Exam Date Time Procedure Performing Provider Status 12/07/24 6:18 AM Tibia/Fibula 2 Views Right Svetlana Wolfe ; Josefina (Verified) Notes: (Tibia/Fibula 2 Views Right) Reason For Exam: cellulitis;Infection RESULT: Tibia/Fibula 2 Views Right Tibia/Fibula 2 Views Right, Foot 2 Views Right INDICATION: Reason: Infection; cellulitis; Clinical Question(s): Other: TECHNIQUE: AP and lateral tibia and fibula. AP, oblique, lateral of the foot. COMPARISON: None. FINDINGS: There is no fracture or focal bony lesion. No bone destruction or periosteal reaction.. The ankle joint is grossly normal. No abnormality of the joints of the foot. There is soft tissue swelling of dorsum of the foot. No gas or opaque foreign body in soft tissues.. IMPRESSION: 1. No bone or joint abnormality. 2. Soft tissue swelling dorsum of foot. WSN: [id number] Ordering Physician: Mary Black Dictated By: Bandar Negrete MD Dictated Date/Time: 12/07/24 7:17 am Reviewed By: Bandar Negrete MD Signed By: Bandar Negrete MD Signed Date/Time: 12/07/24 7:17 am Transcribed By: SARIKA Transcribed Date/Time: 12/07/24 7:16 am * Exam Date Time Procedure Performing Provider Status 12/06/24 12:30 PM US Doppler Ext Lower Venous Right Nicole Ramirez; Auth (Verified) Notes: (US Doppler Ext Lower Venous Right) Reason For Exam: Pain in limb;Other: RESULT: US Doppler Ext Lower Venous Right US Doppler Ext Lower Venous Right Hx of Present Illness: Pt from home. states increased swelling in BLLE over the past week, states increased in Lasix but still gained 12 lb in 1 week now has rash on R ankle that is painful. aaaox4, states sob with activity; Reason: Pain in limb; Clinical Question(s): Thrombus COMPARISON: 04/10/2023 IMAGING TECHNIQUE: Ultrasound of the veins from the groin through the calf was performed using grayscale, color, and spectral Doppler ultrasound assessing for complete compressibility and normal flowcharacteristics. FINDINGS: Common femoral vein: Patent. No thrombosis. Femoral vein: Patent. No thrombosis. Popliteal vein: Patent. No thrombosis. Gastrocnemius veins: The visualized portions are patent without evidence of thrombosis. Peroneal veins: The visualized portions are patent without evidence of thrombosis. Posterior tibial veins: The visualized portions are patent without evidence of thrombosis. Contralateral common femoral vein: Patent. No thrombosis. OTHER FINDINGS: None. IMPRESSION: No evidence of deep venous thrombosis. WSN: [id number] Ordering Physician: Mesfin Greene Dictated By: Mik Quintana MD Dictated Date/Time: 12/06/24 12:42 p Reviewed By: Mik Quintana MD Signed By: Mik Quintana MD Signed Date/Time: 12/06/24 12:42 pm Transcribed By: SARIKA Transcribed Date/Time: 12/06/24 12:40 pm * Exam Date Time Procedure Performing Provider Status 12/06/24 11:25 AM Chest 2 Views Frontal and Lat Jovan Dean; Auth (Verified) Notes: (Chest 2 Views Frontal and Lat) Reason For Exam: Shortness of Breath RESULT: Chest 2 Views Frontal and Lat Chest 2 Views Frontal and Lat Hx of Present Illness: Pt from home. states increased swelling in BLLE over the past weekk, states increased in lasix but still gained 12 lb in 1 week now has rash on R ankle that is painful. aaaox4,states sob with activity; Reason: Shortness of Breath; Clinical Question(s): CHF COMPARISON: 04/10/2023 FINDINGS: LINES AND TUBES: None. LUNGS AND PLEURA: Diffuse prominence of the interstitium. More focal lower lung opacities can represent associated atelectasis. No pleural effusion. No pneumothorax. HEART, MEDIASTINUM AND DEVIN: Borderline heart size. BONES AND SOFT TISSUES: No acute abnormality. IMPRESSION: Diffuse prominence of the interstitium which can be seen with edema. Mild basilar atelectasis. No pleural effusions. WSN: [id number] Ordering Physician: Mesfin Greene Dictated By: Domonique Up MD Dictated Date/Time: 12/06/24 11:34 a Reviewed By: Domonique Up MD Signed By: Domonique Up MD Signed Date/Time: 12/06/24 11:34 am Transcribed By: SARIKA Transcribed Date/Time: 12/06/24 11:34 am Vital Signs Most recent to oldest [Reference Range]: 1 2 3 Height 165 cm (12/08/24 9:55 AM) 165 cm (12/08/24 6:30 AM) 165 cm (12/08/24 3:06 AM) Weight 67.9 kg (12/07/24 7:31 AM) 68.9 kg (12/06/24 10:44 PM) 68.9 kg (12/06/24 10:43 PM) Oxygen Saturation [94-100 %] 98 % (12/08/24 9:55 AM) 94 % (12/08/24 6:30 AM) 93 % *L* (12/08/24 3:06 AM) Pulse Rate [55-90 bpm] 80 bpm (12/08/24 9:55 AM) 85 bpm (12/08/24 7:59 AM) 85 bpm (12/08/24 6:30 AM) Body Mass Index [18.5-24.99 kg/m2] 25.31 kg/m2 *H* (12/06/24 10:35 PM) Blood Pressure [90-138/55-84 mm Hg] 150/71mm Hg *H* (12/08/24 9:55 AM) 143/79mm Hg *H* (12/08/24 7:59 AM) 143/79mm Hg *H* (12/08/24 7:56 AM) Respiratory Rate [16-30 br/min] 20 br/min (12/08/24 9:55 AM) 18 br/min (12/08/24 7:56 AM) 18 br/min (12/08/24 6:30 AM) Temperature [96.8-100.4 DegF] 97.7 DegF (12/08/24 9:55 AM) 97.3 DegF (12/08/24 6:30 AM) 98.2 DegF (12/08/24 3:06 AM) Liters per Minute 2 L/min (12/08/24 9:55 AM) 2 L/min (12/08/24 6:30 AM) 2 L/min (12/07/24 11:08 PM) Mode of Delivery (Oxygen) Nasal cannula (12/08/24 9:55 AM) Nasal cannula (12/08/24 6:30 AM) Room air (12/08/24 3:06 AM) Blood pressure sites Arm, left (12/08/24 9:55 AM) Arm, right (12/08/24 6:30 AM) Arm, left (12/08/24 3:06 AM) Temperature Route Oral (12/08/24 9:55 AM) Oral (12/08/24 6:30 AM) Oral (12/08/24 3:06 AM) Dry Weight 67.9 kg (12/07/24 7:00 AM) 68.9 kg (12/06/24 10:35 PM) Weight Obtained Via Standing scale (12/07/24 7:31 AM) Standing scale (12/06/24 10:44 PM) Standing scale (12/06/24 10:43 PM) Dry Weight Obtained Via Standing scale (12/07/24 7:00 AM) Social History Social History Type Response Smoking Status 5-9 cigarettes (betw een 1/4 to 1/2 pack)/day in last 30 days; Interested in cessation: Yes entered on: 04/07/22 Sex Male Sex Representation Male (finding) Admission evaluation note * Mary Cummings: PERFORM, MODIFY, MODIFY, MODIFY, MODIFY, MODIFY Event Display: Admission Note Authored Date: [id number] Patient: ??CIARA QUIROGA ? Age:??49 Years?Sex:??Male?:??1975?? Chief Complaint/Reason for Consultation From home. Increased SOB and edema x1 weeks. Has a known ONE, taking ABX at home. Gained 12lbs in one week. Increased lasix however is still gaining weight. History of Present Illness Patient is a 49-year-old male with past medical history of essential hypertension, hyperlipidemia, PVD s/p left iliac stent, asthma???COPD overlap syndrome, chronic hypoxic respiratory failure???on as needed supplemental oxygen via NC at 2 LPM's, HFpEF (cardiac echo from March of 2023 showed LVEF 55-60%, with trace mitral valve regurgitation), type 2 diabetes mellitus, peripheral neuropathy, left adrenal mass, microscopic hematuria, chronic normocytic anemia, GERD, history of pancreatitis, anxiety and depression, history of right lower extremity cellulitis in the past (admission back in March 2023). ?? Patient presented with approximately 1 week history of progressing shortness of breath, worsening bilateral distal lower extremity edema, R>L.?? Patient reported edema/redness and pain to the??right ankle and foot.?? Previously has been on Lasix 80 mg in the morning and 40 mg at bedtime (for at least 1 year at this point).?He saw his PCP and reportedly soup person a couple days ago and wasinstructed to??take 80 mg a Lasix twice daily,??he only did it for 1 day yesterday. ??Reportedly his VNA??today was concerned??with hypoxia and persistent??swelling, and instructed patient to go to emergency department. ??Patient denied chest pain/lightheadedness/diaphoresis.?? Denied fever/chills.? ? No cough. ??Denied abdominal pain/distention/nausea/vomiting/diarrhea/melena.?? Denied complaints.?? Patient reported compliance with all of his medications.?? He did admit that sometimes he is not compliant with low-salt diet, but nothing??out of proportion??recently.?? No recent dvs-wv-lnhle/country travels. ??No recent surgeries. ?? On arrival to ED he was normotensive BP 127/62, with mild hypoxia requiring 2 LPM's NC.?? No fevers.?? No tachycardia or tachypnea.?? Initial lab work showed moderate leukocytosis with WBC count of 15.9 with a left shift.?? Noted worsening anemia now with microcytosis today H/H 7.7/24.2 (from previous 10.2/32.7 back in March 2023).?? Platelet count was unremarkable.?? General chemistry panel was concerning for KELVIN on CKD with creatinine today 2.09/BUN of 48 (baseline creatinine range usually around 1.3???1.5, again the most recent lab work dates back to March 2023; nothing more recent than that); mild serum hypocalcemia withoutalbumin available for correction.?? Rest electrolytes are WNL. BNP was elevated at 3355 Twelve-lead EKG, on personal review, demonstrated normal sinus rhythm at a rate of 79 bpm; no evidence of ischemic changes.?? Unremarkable QTc of 410.?? Troponins are also reassuring . Chest x-ray showed pulmonary edema, mild bibasilar atelectasis. Right lower extremity Doppler ruled out DVT. ?? Patient was given 40 mg of IV Lasix (since he already took 80 mg Lasix at home prior to coming to ED).?? He was also started on cefazolin for management of nonpurulent cellulitis.?? He will be admitted for further evaluation management of acute on chronic decompensated heart failure and right lower extremity cellulitis. Review of Systems Constitutional symptoms: ??Negative except as documented in HPI.?? Respiratory symptoms:??As per HPI Cardiovascular symptoms:?Negative Gastrointestinal symptoms: ??Negative Genitourinary symptoms: ??Negative Musculoskeletal symptoms: ??Negative Neurologic symptoms:?Negative ? Objective ? Vital Signs?? Temperature: 98 DegF (12/06/24 10:37:00) Temperature Route: Oral (12/06/24 10:37:00) Pulse Rate: 87 bpm (12/06/24 10:37:00) Respiratory Rate: 16 br/min (12/06/24 14:24:00) Systolic Blood Pressure: 127 mm Hg (12/06/24 10:37:00) Diastolic Blood Pressure: 62 mm Hg (12/06/24 10:37:00) Mean Arterial Pressure: 84 mm Hg (12/06/24 10:37:00) Pulse Pressure: 65 mm Hg (12/06/24 10:37:00) Oxygen Saturation:??92 %??Low (12/06/24 10:37:00) Oxygen Saturation:??92 %??Low (12/06/24 10:37:00) Liters per Minute: 2 L/min (12/06/24 10:37:00) Liters per Minute: 2 L/min (12/06/24 10:37:00) Mode of Delivery (Oxygen): Nasal cannula (12/06/24 10:37:00) Mode of Delivery (Oxygen): Nasal cannula (12/06/24 10:37:00) Early Warning Score: 2 (12/06/24 16:23:27) ? Pain Scores 1 - 10 Pain Scale Score: 4 (10:37) ? Intake/Output? No Data Available ? Physical Exam GEN:??Pleasant gentleman.?? Moderately obese.?? NEVAREZ x 3, provides good history.?? Moderately hypervolemic on exam.?? Nontoxic.?? No distress. CV: Regular rate and rhythm. S1 and S2 normal . No murmurs. PULM:??Bibasilar inspiratory crackles. ??No wheezing. ??Currently on room air. ??Speaks in full sentences. ??No cough. ??No accessory muscle use or tripoding. ABD: Soft. Non-distended. Normal bowel sounds present x4 quadrants. Nontender. EXT:??3+ bilateral lower extremity edema, R>L. ??Patient is tender on exam.?? Noted??mild??semicircumferential erythema/edema/warmth with touch and pain??around patient's ankle??and extending intothe dorsal aspect of the foot.?No fluctuance/purulence.?No malodor.?No broken skin.?? Range of motion of the toes/ankle/knee and hip is full and intact. ??Neurovascular examination is intact. NEURO: No gross neurologic focal deficits. SKIN: Warm/dry/well-perfused. PSYCH: Patient is calm and pleasant.? Assessment/Plan Patient is a 49-year-old male with past medical history of essential hypertension, hyperlipidemia, PVD s/p left iliac stent, asthma???COPD overlap syndrome, chronic hypoxic respiratory failure???on as needed supplemental oxygen via NC at 2 LPM's, HFpEF (cardiac echo from March of 2023 showed LVEF 55-60%, with trace mitral valve regurgitation), type 2 diabetes mellitus, peripheral neuropathy, left adrenal mass, microscopic hematuria, chronic normocytic anemia, GERD, history of pancreatitis, anxiety and depression, history of right lower extremity cellulitis in the past (admission back in March 2023). ? Diagnoses ?? Shortness of breath (R06.02): . Acute on chronic hypoxic respiratory failure (J96.21): . Acute exacerbation of CHF (congestive heart failure) (I50.9): . [History of ] (HFpEF) heart failure with preserved ejection fraction (I50.30): . Patient with history of HFpEF EF of 55 to 60% per echo back in March 2023.?? Presented with 1 week history of worsening lower extremity edema, shortness of breath.?? Usually he is on Lasix 80 mg in the morning and 40 mg at bedtime, yesterday he saw his PCP and was instructed to take Lasix 80 mg twice daily which he started just yesterday.?? Today he has VNA however instructed that he go to emergency department.?? Appears moderately hypervolemic on exam.?? He was initially hypoxic requiring 2 LPM's NC, but improved after IV Lasix push in ED, received 40 mg (since already took 80 mg oral Lasix prior to coming to ED this morning).?? Triggers currently unclear.?? Fortunately unlikely ACS given re assuring EKG, troponins and no classic symptoms ??? Admit to acute care medical floor -Telemetry monitoring ??? Continue IV Lasix for 80 mg daily, may need to add p.m. dose as well.?? But will defer to primary team --depending on his I/Os tonight -Ordered cardiac echo ??? Monitor volume status with serial I/Os and daily weights ??? Daily BMP/electrolytes???correct on as needed basis -Reiterated importance of low-sodium diet ?? Acute kidney injury superimposed on CKD (N17.9): . Hard to tease out whether cardiorenal vs recent increase in PO Lasix dose, which only happened yesterday. ??? Will obtain urinalysis, urine osmolality, serum osmolality, urine sodium ??? Will obtain renal US ??? Closely monitor I/os -PRN bladder scans ?? Cellulitis of right leg (L003.115): Leukocytosis (D72.829): Interesting that during recent admission with decompensated heart failure he also had right lower extremity cellulitis.?? Not satisfying SIRS/sepsis criteria at this time ??? Will check hemoglobin A1c, back in 04/11/2023 was 9.2 ??? Will obtain x-rays of the right foot/ankle; however overall exam is benign???appearing ??? Pain control with as needed Tylenol.?? May entertain adding some oxycodone for breakthrough ?? Microcytic anemia (D50.9): ???today H/H 7.7/24.2 with microcytosis (from previous normocytic anemia with H/H 10.2/32.7 back inJune 2022). Patient is denying symptoms concerning for GI/GI bleeding. Only on low dose ASA, no anticoagulationuse ??? Will check basic anemia workup in the morning.?? He should follow-up PCP after discharge ?? Essential hypertension (I10): -IV Lasix, as per above fro CHF exacerbation ??? Continue amlodipine 10 mg QD, metoprolol 100 mg QD ?? Hyperlipidemia (E78.5): -Continue atorvastatin ?? Asthma (J45.909): COPD type A (J43.9): Asthma/COPD overlap, on as needed oxygen via 2 LPM's [employer] No acute issues at this time ??? As needed DuoNeb for wheezing/dyspnea -Smoking cessation was highly advised ?? Type 2 diabetes mellitus (E11.9): Insulin pump in place (Z96.41): . Patient reports that insulin pump uses insulin lispro at 0.75 units/h.?? He was given an option of signing the contract/keeping track of his BG trend.?? After further discussion he agreed to turn thepump off and will defer to healthcare team to do manual POC/sliding scale at this time ??? Will check hemoglobin A1c, as was mentioned above ???POC TID and QHS -SSI w/ lispro -Hypoglycemic protocol ??? Diabetic diet -placed MD to RN order to remind patient to turn his insulin pump off ?? Peripheral neuropathy (G62.9): . -Continue gabapentin 300 mg TID ?? Left adrenal mass (E27.8): -As was mentioned during prior hospitalization, he should follow-up with PCP ?? Chronic GERD (K21.9): -Continue pantoprazole 40 mg QD ?? Anxiety and depression (F41.9): . Insomnia (G47.00): . -Continue escitalopram, and trazodone ?? Cigarette smoker (F17.210): -On average consumes half a pack per day.?? Smoking cessation was highly advised.?? He reports he is working on trying to quit, but it is difficult.?? He does have prescription for nicotine patches.?? Will provide nicotine patches for cravings during this admission ?? Quality Measures: DVT prophylaxis:??Heparin SQ Diet:??Diabetic diet Code Status: FULL CODE - as discussed with patient at bedside Medication list: confirmed with??patient at bedside. ?? Opportunity for questions given and answered.?? Patient verbalized understanding and in agreement with the above plan. ?? Date of service:??7??12/06/2024. ? Histories Allergies Allergies ?(Active and Proposed Allergies Only) Trulicity? (Severity: Unknown severity, Onset: Unknown) metFORMIN? (Severity: Unknown severity, Onset: Unknown) ? Past Medical History/Problem List No problems documented. ? Past Surgical History No surgery history documented. ? Social History Alcohol Details:??Use: Current. ??Frequency: 1-2 times per week. ??Type: Wine, Liquor. Employment/School Details:??Status: Disabled. Exercise Details:??Self assessment: Fair condition. Home/Environment Details:??Living situation: Home/Independent. ??Lives with: Children. Nutrition/Health Details:??Diet: Regular. Substance Abuse Details:??Use: Never. Tobacco Details:??Use: 5-9 cigarettes (between 1/4 to 1/2 pack)/day in last 30 days. ??Interested in cessation: Yes. Electronic Cigarette/Vaping Details:??Electronic Cigarette Use: Never. ? Psychosocial History ? Family History No Family History documented. ? Medications Home Medications Albuterol (Albuterol (Eqv-Proventil HFA) 90 mcg/inh inhalation aerosol)??2 puff(s) Inhalation Every6 hours Amlodipine (amLODIPine 10 mg oral tablet)??10 Milligram 1 tablet By Mouth Daily Aspirin (aspirin 81 mg oral delayed release tablet)??81 Milligram 1 tablet By Mouth Daily Atorvastatin (Lipitor 40 mg oral tablet)??1 tab(s) 40 Milligram By Mouth Daily Escitalopram (escitalopram 10 mg oral tablet)??1 tab(s) 10 Milligram By Mouth Daily Furosemide (Lasix 20 mg oral tablet)??20 Milligram 1 tablet By Mouth Daily at bedtime Furosemide (Lasix 40 mg oral tablet)??40 Milligram 1 tablet By Mouth Daily Gabapentin (gabapentin 300 mg oral capsule)??300 Milligram 1 capsule By Mouth 3 times a day hydrALAZINE (hydrALAZINE 25 mg oral tablet)??50 Milligram 2 tablet By Mouth 3 times a day for 14 Days continue it until lisinopril is held off. Once lisinopril resumed, stop this medication Insulin Lispro (insulin lispro 100 u/ml subcutaneous injection)??7-15 units Subcutaneous Injection 3 times a day before meals for 1 Days << Sliding Scale Comments >>100 - 129 ?? 7 units Call if less than [id number] - [phone] ?? 9 units 160 - 189 ?? 11 units 190 - 219 ?? 13 units 220 - 249 ?? 15 units Call if greater than 400<< Sliding Scale Comments >> Metoprolol (Toprol XL 100 mg oral tablet, extended release)??100 Milligram 1 tablet By Mouth Daily Miscellaneous Rx (BMP and UA in 5 days)??See Instructions Please repeat the blood work and urine study, And follow up with your PCP. Thanks Nicotine (nicotine 21 mg/24 hr transdermal film, extended release)??1 patch(es) Topically Daily Nitroglycerin (nitroglycerin 0.3 mg sublingual tablet)??See Instructions as needed for chest pain 1tablet Sublingual, take PRN for chest pain (if you need to take >1, call PCP) Oxycodone / Acetaminophen (acetaminophen-oxyCODONE 325 mg-5 mg oral tablet)??TAKE 1 TABLET BY MOUTHEVERY 6 HOURS IF NEEDED FOR SEVERE PAIN FOR UP TO 15 DOSES. Pantoprazole (pantoprazole 40 mg oral delayed release tablet)??40 Milligram By Mouth Daily for 30 Days PEG Electrolyte Solution (PEG-3350 with Electrolytes (Eqv-GoLYTELY) oral powder for reconstitution)??See Instructions 1 glass every 15-30 minutes until finished Podofilox Topical (podofilox 0.5% topical solution)??1 clarice Topically 2 times a day use for 3 days, withhold for 4 days, then repeat cycle up to 4 times Tiotropium (Spiriva Respimat 1.25 mcg/inh inhalation aerosol)??2 puff(s) Inhalation Daily Trazodone (traZODone 50 mg oral tablet)??25 Milligram 0.5 tablet By Mouth Daily at bedtime ? Results Recent Labs BLOOD COUNT & DIFF WBC 15.9 k/mm3 (High)?? 12/06/2024 12:05 RBC 3.09 m/mm3 (Low)?? 12/06/2024 12:05 Hgb 7.7 Gm/dL (Low)?? 12/06/2024 12:05 Hct 24.2 % (Low)?? 12/06/2024 12:05 MCV 78.3 femtoliters (Low)?? 12/06/2024 12:05 MCH 24.9 pg (Low)?? 12/06/2024 12:05 MCHC 31.8 Gm/dL (Low)?? 12/06/2024 12:05 Platelet Count 241 k/mm3 ()?? 12/06/2024 12:05 RDW-SD 61.4 femtoliters (High)?? 12/06/2024 12:05 MPV 10.9 femtoliters ()?? 12/06/2024 12:05 Nucleated RBC (Automated) 0.0 #/100 WBC'S ()?? 12/06/2024 12:05 Abs. NRBC 0.0 k/mm3 ()?? 12/06/2024 12:05 Abs. Neut 13.3 k/mm3 (High)?? 12/06/2024 12:05 Abs. Lymph 1.1 k/mm3 ()?? 12/06/2024 12:05 Abs. [place] 1.2 k/mm3 ()?? 12/06/2024 12:05 Abs. Eo 0.1 k/mm3 ()?? 12/06/2024 12:05 Abs. Baso 0.0 k/mm3 ()?? 12/06/2024 12:05 Neut % 83.9 % (High)?? 12/06/2024 12:05 Lymph % 7.1 % (Low)?? 12/06/2024 12:05 [place] % 7.3 % ()?? 12/06/2024 12:05 Eos % 0.8 % ()?? 12/06/2024 12:05 Baso % 0.1 % ()?? 12/06/2024 12:05 Imm Gran 0.8 % ()?? 12/06/2024 12:05 Abs. Imm Gran 0.1 k/mm3 ()?? 12/06/2024 12:05 ?? CARDIAC Nt-Probnp 3355 pg/mL (High)?? 12/06/2024 12:05 High Sensitivity Troponin (HSTnT) 19 ng/L ()?? 12/06/2024 16:20 ?? CHEM GENERAL Sodium 138 mmol/L ()?? 12/06/2024 12:05 Potassium 4.4 mmol/L ()?? 12/06/2024 12:05 Chloride 105 mmol/L ()?? 12/06/2024 12:05 Bicarbonate Level 22 mmol/L ()?? 12/06/2024 12:05 Anion Gap 11 mmol/L ()?? 12/06/2024 12:05 Glucose Level 158 mg/dL (High)?? 12/06/2024 12:05 BUN 48 mg/dL (High)?? 12/06/2024 12:05 Creatinine-Blood 2.09 mg/dL (High)?? 12/06/2024 12:05 Estimated GFR Creatinine 38 ML/MIN/1.73 M2 ()?? 12/06/2024 12:05 Osmolality 307 mOs/kg (High)?? 12/06/2024 16:20 Calcium 8.1 mg/dL (Low)?? 12/06/2024 12:05 ? Image ?XR Chest 2 Views Frontal and Lat??12/06/2024 11:25 by Jovan Dean ?IMPRESSION: Diffuse prominence of the interstitium which can be seen with edema. Mildbasilar atelectasis. No pleural effusions. ?US Doppler Ext Lower Venous Right??12/06/2024 12:30 by Nicole Goetz ?IMPRESSION: No evidence of deep venous thrombosis. ?? * Mary Cummings: PERFORM Event Display: Admission Note Authored Date: 10:44 PM: Was kindly notified by floor RN regarding patient scoring yellow on Scott suicide scale, stating that he wished to be .?? But currently seeing therapist. This technical document writer came to patient's bedside again to inquire about this statement.?? Patient clarified that he felt that way in the past very rarey, but nothing recently.?? Currently he is following with therapist and is happy with the care.?? He also has a small grandson that he loves very much and would not let anything happen to him. Currently he is denying any suicidal or homicidal ideations.?? Didrequest soft psychiatry consult for and input/guidance. EKG study * Event Display: ECG 12-Lead Authored Date: Please click on pdf link to open report * Event Display: ECG 12-Lead Authored Date: Ventricular Rate: 79 BPM Atrial Rate: 79 BPM P-R Interval: 138 ms QRS Duration: 80 ms Q-T Interval: 358 ms QTC Calculation(Bazett): 410 ms P Comstock: 43 degrees R Comstock: 37 degrees T Comstock: 47 degrees Normal sinus rhythm Normal ECG When compared with ECG of 12-Trent-2023 16:57, No significant change was found Confirmed by Shamar Sherwood ([id number]) on 12/06/2024 11:43:58 AM [place]: Sh[facility] Sherwood [facility] * Event Display: Cardiac Rhythm Strips Authored Date: Hospital Progress note * Astrid Hall MD: PERFORM, SIGN, VERIFY Event Display: Progress Note Hospital Authored Date: Patient: CIARA QUIROGA Age: 49 years Sex: Male : 1975 Associated Diagnoses: None Author: Astrid Hall MD Overnight Events & Current Issues seen and examined d/w medical attending feels better Review of Systems Review of Systems Respiratory: dyspnea improved. Cardiovascular: peripheral edema. Gastrointestinal: no nausea, no vomiting. Physical Examination Vitals Vitals : VITAL SIGNS SECTION 12/08/2024 9:55 EST Systolic Blood Pressure 150 mm Hg H Diastolic Blood Pressure 71 mm Hg . General Appearance No apparent distress. Respiratory Decreased breath sounds. Cardiac Rhythms: RRR. Abdomen/GI Soft. Non-tender. Extremities Lower extremity edema: pitting. Neurologic Alert. Results Review RENAL FLOWSHEET : RENAL FLOWSHEET 12/08/2024 2:37 EST Creatinine-Blood 1.83 mg/dL H BUN 50 mg/dL H Estimated GFR Creatinine 44 ML/MIN/1.73 M2 Sodium 138 mmol/L Potassium 4.8 mmol/L Chloride 103 mmol/L Bicarbonate Level 25 mmol/L Anion Gap 10 mmol/L Magnesium 1.8 mg/dL Impression and Plan Comprehensive Plan KELVIN HFpEF CKD 3 kidney function better KELVIN c/w renal hypoperfusion in the setting of cardio renal syndrome benign urine sediment other less likely known CKD due to DM/HTN baseline Scr ~ 1.3-1.5 mg/dl proteinuria ~ 1 g use to see me in the office HFpEF LVEF 55-60% REC transition to torsemide 40 mg bid upon dc c/w IV furosemide 80 mg daily follow kidney function and electrolytes * Wally URBINA, May: MODIFY Wally URBINA, May: MODIFY, SIGN May Lo RN: SIGN, SIGN, VERIFY Event Display: Progress Note Hospital Authored Date: Patient: CIARA QUIROGA Age: 49 years Sex: Male : 1975 Associated Diagnoses: None Author: Feliberto Sosa RN Findings Problem Related to Alteration in Cardiac Function (new) : Alteration in Cardiac Function/new 12/08/2024 4:00 EST Alteration in Cardiac Status Related to Heart failure Goals & Outcomes, Cardiac Status Pt will resume/maintain adequate cardiac output, Pt will resume/maintain adequate hemodynamic status, Pt will resume/maintain adequate respiratory function, Pt will resume/maintain intact neuro function, Pt will maintain adequate nutrition status Cardiac Interventions Implemented Assess/monitor cardiac status, Assess/monitor neuro status, Assess/monitor respiratory status, Call/Report variances in ECG to provider, Ensure adequate caloric intake, Turn & reposition Q2 hours per activity restrictions, Fluid restriction per MD order BH Goals/Interventions, Cardiac Yes Cardiac, Problem Start 12/07/2024 21:00 Reviewed Plan with, Cardiac Status Patient Patient Progression, Cardiac Status Plan Initiation . Alteration in Endocrine : Alteration in Endocrine Function/new 12/08/2024 4:00 EST Alteration in Endocrine Related to Diabetes Goals & Outcomes, Endocrine Pt will receive/maintain adequate nutrition status, Vital signs, electrolytes & blood glucose will stabilize, Pt will be maintained on sc insulin & appropriate diet, Pt's blood glucose levels will be within MD parameters, Pt will experience progressive woundhealing Interventions, Endocrine Teach Pt/caregiver signs & symptoms of hypoglycemia, Teach Pt/caregiver signs & symptoms of hyperglycemia Goals/Interventions, Endocrine Yes Endocrine, Problem Start 12/08/2024 4:10 Reviewed Plan with, Endocrine Patient Patient Progression, Endocrine Plan Initiation . Narrative/Incidental Patient had low blood glucose relatively low , in the 60s at the beginning of the shift. No relatedsymptoms were experinced. Snack was provided and BG went up to 140s. Education was provided about signs and symtoms of hypo/hyperglycemia and apprpriate interventions in either one of the scenarios. Educated patient on plan of care and call harper use, fall risk precautions in place, call harper within reach, hourly rounding maintained. See CIS for full assessment data and flow sheets, will continue monitoring as needed.. * Wally URBINA, May: VERIFY, PERFORM, SIGN Event Display: Progress Note Hospital Authored Date: Patient: CIARA QUIROGA Age: 49 years Sex: Male : 1975 Associated Diagnoses: None Author: Wally URBINA, May Findings Narrative/Incidental This RN in to see patient for med pass, pt a/ox4, following commands appropriately, states blood glucose is low per his glucometer, endorses dizziness, denies all other symptoms, POC 56, pt given 8ozapple juice and PB and jelly sandwich per pt request. . Consult note * Mickie Gregory: PERFORM Event Display: Consultation Note Authored Date: [id number] Patient: ??CIARA QUIROGA ? Age:??49 Years?Sex:??Male?:??1975?? Chief Complaint From home. Increased SOB and edema x1 weeks. Has a known ONE, taking ABX at home. Gained 12lbs in one week. Increased lasix however is still gaining weight. History of Present Illness 49-year-old male with past medical history of type 2 diabetes, on insulin pump, hypertension, heartfailure, adrenal mass, presented with decompensated CHF and worsening kidney function.?? Bids team consulted for assistance in glycemic management as patient send insulin pump. ?? Patient states he took off his OmniPod when admitted.?? Does not have his PDM with him so I am unable to review pump settings or his total daily dose.?? States his pump was running at 0.75 units/h consistently.?? States he does not bolus prior to meals however does correct throughout the day if blood sugars are high.?? Diagnosed with diabetes for over 12 years.?Follows with [facility]. ?? Patient states he lives in a facility with nursing 22/05 however he does manage his own insulin pump.?? States he would like to go home. ?? Current regimen: ??? Lispro scale 2: 150+2: 50, 3 times daily prior to meals. ?? Blood sugar review: Since admission noon yesterday his blood sugars have ranged between 181-247, uptrended without his insulin pump. ?? Interim history: Eating well no nausea no vomiting. Review of Systems Negative, unless noted in HPI Physical Exam Vitals & Measurements T:??98.2?F?? TMIN:??97.9?F?? TMAX:??98.8?F?? HR:??86??(Peripheral)?? RR:??16?? BP:??147/96?? SpO2:??99%?? WT:??67.9??kg?? Constitutional: Well appearing, alert, no apparent distress HEENT: NC/AT, anicteric sclera Neck: supple Respiratory: able to speak in full sentences, no audible wheezing, no use of accessory muscles. Assessment/Plan Assessment:??49-year-old male with past medical history of type 2 diabetes, on insulin pump, hypertension, heart failure, adrenal mass, presented with decompensated CHF and worsening kidney function.??Bids team consulted for assistance in glycemic management as patient send insulin pump. ?? Type 2 diabetes mellitus (E11.9):?? Since patient does not have his PDM with him he will not be able to bolus, or correct for high blood sugars.?? Will continue with basal and bolus injections.?? Will add in Lantus dosing as follows below. ?? Plan: ??? Start Lantus 20 units daily ??? Start lispro scale 4: 100+2: 50, 3 times daily prior to meals.?? Hold if NPO. ?? Discharge recommendation: Discussed with him to resume insulin pump 20 to 22 hours after his last Lantus injection.?? If discharged today discussed this would be around 6 to 8 AM tomorrow morning,he verbalized understanding and offers no questions about this. ?? Problem List/Past Medical History Ongoing No qualifying data Medications Inpatient Acetaminophen Tablet, 650 mg, By Mouth, Every 4 hours, PRN amLODIPine 10 mg oral tablet, 10 mg, By Mouth, Daily Ancef Inj, 1 Gm, IV Push, Every 8 hours aspirin 81 mg oral delayed release tablet, 81 mg, By Mouth, Daily Dextrose 50% Inj Syringe (25Gm), 12.5 Gm, IV Push Slowly, Every 20 minutes, PRN Dextrose 50% Inj Syringe (25Gm), 25 Gm, IV Push Slowly, Every 15 minutes, PRN Docusate Sodium Capsule, 100 mg= 1 capsule, By Mouth, 2 times a day, PRN escitalopram 10 mg oral tablet, 10 mg, By Mouth, Daily gabapentin 300 mg oral capsule, 300 mg, By Mouth, 3 times a day Glucagon Inj, 1 mg, Intramuscular, Once, PRN Glucose Gel, 15 Gm, By Mouth, Every 20 minutes, PRN Glucose Gel, 30 Gm, By Mouth, Every 20 minutes, PRN Heparin Inj, 5000 units= 1 mL, Subcutaneous Injection, 3 times a day Insulin LISPRO Sliding Scale, 4-12 units, Subcutaneous Injection, 3 times a day before meals Lantus Inj, 20 units= 0.2 mL, Subcutaneous Injection, Daily in AM Lasix Inj, 80 mg= 8 mL, IV Push Slowly, 2 times a day Lipitor 40 mg oral tablet, 40 mg, By Mouth, Daily Melatonin Tablet, 3 mg, By Mouth, Daily at bedtime, PRN MiraLax Powder, 17 Gm= 1 pack/packet, By Mouth, Daily, PRN NaCL 0.9% Flush, 3 mL, IV Push, Every 8 hours NaCL 0.9% Flush, 3 mL, IV Push, Every 8 hours, PRN pantoprazole 40 mg oral delayed release tablet, 40 mg, By Mouth, Daily Robitussin DM Liquid, 10 mL, By Mouth, Every 4 hours, PRN Senna Tablet, 8.6 mg= 1 tablet, By Mouth, 2 times a day, PRN Simethicone Tablet, 80 mg, Chew, 3 times a day, PRN sucralfate 1 gm oral tablet, 1 Gm, By Mouth, 3 times a day with meals Toprol XL 100 mg oral tablet, extended release, 100 mg, By Mouth, Daily traZODone 50 mg oral tablet, 100 mg, By Mouth, Daily at bedtime Home Albuterol (Eqv-Proventil HFA) 90 mcg/inh inhalation aerosol, 2 puffs, Inhalation, Every 6 hours amLODIPine 10 mg oral tablet, 10 mg= 1 tablet, By Mouth, Daily aspirin 81 mg oral delayed release tablet, 81 mg= 1 tablet, By Mouth, Daily escitalopram 10 mg oral tablet, 10 mg= 1 tablet, By Mouth, Daily gabapentin 300 mg oral capsule, 300 mg= 1 capsule, By Mouth, 3 times a day Lantus 100 u/ml subcutaneous solution Lasix 20 mg oral tablet, 40 mg, By Mouth, Daily at bedtime Lasix 40 mg oral tablet, 80 mg, By Mouth, Daily Lipitor 40 mg oral tablet, 40 mg= 1 tablet, By Mouth, Daily nicotine 21 mg/24 hr transdermal film, extended release, 1 patch, Topically, Daily nitroglycerin 0.3 mg sublingual tablet, See Instructions, PRN pantoprazole 40 mg oral delayed release tablet, 40 mg, By Mouth, Daily podofilox 0.5% topical solution, 1 application, Topically, 2 times a day sucralfate 1 gm oral tablet Toprol XL 100 mg oral tablet, extended release, 100 mg= 1 tablet, By Mouth, Daily traZODone 50 mg oral tablet, 100 mg, By Mouth, Daily at bedtime Allergies Trulicity metFORMIN Social History Alcohol Use: Current. Frequency: 1-2 times per week. Type: Wine, Liquor. Electronic Cigarette/Vaping Electronic Cigarette Use: Never. Employment/School Status: Disabled. Exercise Self assessment: Fair condition. Home/Environment Living situation: Home/Independent. Lives with: Children. Nutrition/Health Diet: Regular. Substance Abuse Use: Never. Tobacco Use: 5-9 cigarettes (between 1/4 to 1/2 pack)/day in last 30 days. Interested in cessation: Yes. Immunizations Vaccine Date Status influenza virus vaccine, inactivated 07/22/2022 Given * Astrid Hall MD: PERFORM Event Display: Consultation Note Authored Date: [id number] Patient: ??CIARA QUIROGA ? Age:??49 Years?Sex:??Male?:??1975?? Chief Complaint/Reason for Consultation KELVIN History of Present Illness 49-year-old male with a history of CKD admitted with decompensated CHF found to have worsening kidney function. In summary he presented to the emergency department with complaints of increasing lower extremity swelling, right swelling greater than left with increasing redness and pain to the right as well as increasing shortness of breath over the last few days. He reports a weight gain of almost 12 lbs in a week period. His furosemide dose was recently?? increased to 80 mg twice a day but he has continued to gain weight and have increasing leg swelling.? Chest x-ray showed pulmonary edema, mild bibasilar atelectasis. Right lower extremity Doppler ruled out DVT. Review of Systems 10 points ROS negative except for pertinent in HPI Objective Measurements?? Height: 165 cm (12/07/24) Weight: 67.9 kg (12/07/24) Dry Weight: 68.9 kg (12/06/24) Body Mass Index:??25.31 kg/m2??High (12/06/24) ? Vital Signs?? Temperature: 97.9 DegF (12/07/24 07:21:00) Temperature Route: Oral (12/07/24 07:21:00) Pulse Rate: 85 bpm (12/07/24 07:21:00) Respiratory Rate: 16 br/min (12/07/24 07:47:00) Systolic Blood Pressure: 122 mm Hg (12/07/24 07:21:00) Diastolic Blood Pressure: 68 mm Hg (12/07/24 07:21:00) Blood pressure sites: Arm, right (12/07/24 07:21:00) Mean Arterial Pressure: 86 mm Hg (12/07/24 07:21:00) Pulse Pressure: 54 mm Hg (12/07/24 07:21:00) Oxygen Saturation: 94 % (12/07/24 07:21:00) Liters per Minute: 2 L/min (12/07/24 07:21:00) Mode of Delivery (Oxygen): Room air (12/07/24 07:21:00) Early Warning Score: 4 (12/07/24 07:48:24) ? Physical Exam ?? General: Lying in bed. Afebrile. NAD. ?Eye: Normal conjunctiva ?HEENT: Normocephalic ?Neck: Supple ?Resp: Nonlabored respirations ?CVS: Normal rate, RRR ?GI: Soft, distended, NT, no guarding/rebound?Integumentary: Warm, Dry ?Extremities:+ edema Assessment/Plan ?? KELVIN HFpEF CKD 3 ?? KELVIN c/w renal hypoperfusion in the setting of cardio renal syndrome ?? benign urine sediment ?? other less likely ?? known CKD due to DM/HTN baseline Scr ~ 1.3-1.5 mg/dl proteinuria ~ 1 g use to see me in the office ?? HFpEF LVEF 55-60% ?? REC ?? bladder scan c/w IV furosemide 80 mg daily monitor urine output follow kidney function and electrolytes ? Histories Allergies Allergies ?(Active and Proposed Allergies Only) Trulicity? (Severity: Unknown severity, Onset: Unknown) metFORMIN? (Severity: Unknown severity, Onset: Unknown) ? Past Medical History/Problem List No problems documented. ? Past Surgical History No surgery history documented. ? Social History Alcohol Details:??Use: Current. ??Frequency: 1-2 times per week. ??Type: Wine, Liquor. Employment/School Details:??Status: Disabled. Exercise Details:??Self assessment: Fair condition. Home/Environment Details:??Living situation: Home/Independent. ??Lives with: Children. Nutrition/Health Details:??Diet: Regular. Substance Abuse Details:??Use: Never. Tobacco Details:??Use: 5-9 cigarettes (between 1/4 to 1/2 pack)/day in last 30 days. ??Interested in cessation: Yes. Electronic Cigarette/Vaping Details:??Electronic Cigarette Use: Never. ? Family History No Family History documented. ? Medications Home Medications Albuterol (Albuterol (Eqv-Proventil HFA) 90 mcg/inh inhalation aerosol)??2 puff(s) Inhalation Every6 hours Amlodipine (amLODIPine 10 mg oral tablet)??10 Milligram 1 tablet By Mouth Daily Aspirin (aspirin 81 mg oral delayed release tablet)??81 Milligram 1 tablet By Mouth Daily Atorvastatin (Lipitor 40 mg oral tablet)??1 tab(s) 40 Milligram By Mouth Daily Escitalopram (escitalopram 10 mg oral tablet)??1 tab(s) 10 Milligram By Mouth Daily Furosemide (Lasix 20 mg oral tablet)??40 Milligram By Mouth Daily at bedtime Furosemide (Lasix 40 mg oral tablet)??80 Milligram By Mouth Daily Gabapentin (gabapentin 300 mg oral capsule)??300 Milligram 1 capsule By Mouth 3 times a day Metoprolol (Toprol XL 100 mg oral tablet, extended release)??100 Milligram 1 tablet By Mouth Daily Nicotine (nicotine 21 mg/24 hr transdermal film, extended release)??1 patch(es) Topically Daily Nitroglycerin (nitroglycerin 0.3 mg sublingual tablet)??See Instructions as needed for chest pain 1tablet Sublingual, take PRN for chest pain (if you need to take >1, call PCP) Pantoprazole (pantoprazole 40 mg oral delayed release tablet)??40 Milligram By Mouth Daily for 30 Days Podofilox Topical (podofilox 0.5% topical solution)??1 clarice Topically 2 times a day use for 3 days, withhold for 4 days, then repeat cycle up to 4 times Trazodone (traZODone 50 mg oral tablet)??100 Milligram By Mouth Daily at bedtime ?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 viruses during your time with us (such as flu or COVID-19). If you develop symptoms concerning for a viral respiratory infection, please seek testing (and treatment if indicated) from your medical provider or home test kit. ?? You can view and manage your care through the patient portal or by using a health care clarice of your choosing. [facility] is a website that allows you to securely view your medical information including your hospital discharge summary, office visit summaries, medications and follow-up visits. You can also request appointments, renew medications, and request access to your medical information using a health care clarice of your choosing, or just ask a question. You can enroll at [email or web address] or register during your next office visit. You have been discharged from [facility], Patient Care Unit: D3B??. If you have any questions regarding these instructions, including results of studies pending, afteryou leave, please call us and we will be happy to assist you 22/05. [facility] Your Care Team Attending Physician Mildred Kwan MD?? Consulting Providers Mildred Kwan MD?? Discharging Providers Mildred Kwan MD Reason for Your Visit From home. Increased SOB and edema x1 weeks. Has a known ONE, taking ABX at home. Gained 12lbs in one week. Increased lasix however is still gaining weight.?? Your Diagnosis Shortness of breath Acute on chronic hypoxic respiratory failure Acute exacerbation of CHF (congestive heart failure) Acute kidney injury superimposed on CKD Essential hypertension Hyperlipidemia Asthma COPD type A Type 2 diabetes mellitus (HFpEF) heart failure with preserved ejection fraction Peripheral neuropathy Left adrenal mass Normocytic anemia Chronic GERD Anxiety Anxiety and depression Insomnia Insulin pump in place General medical Tests Performed Below is a partial list of the tests performed during your hospitalization. You may have had other tests and procedures not included in this list. Please discuss all test results with your provider. B12 Vitamin Level Basic Metabolic Panel CBC CBC w/ Differential COVID-19, RSV, and Flu A/B, Rapid PCR Ferritin Folate Level GLUCOSE POC Hemoglobin A1C (Monitoring) HOLD URINE CULTURE Iron + Iron Binding Capacity Magnesium Level Osmolality Peripheral Blood Smear Review?-- Results Pending -- ProBNP Reticulocyte Ct Troponin T, High Sensitivity Urinalysis Complete Urine Osmolality Urine Sodium Fibula/Tibia 2 Views Right Foot 2 Views Right US Doppler Ext Lower Venous Right US Renal Bladder XR Chest 2 Views Frontal and Lat B Type Natriuretic Peptide (NT-proBNP) (ProBNP)?? Basic Metabolic Panel?? CBC?? CBC w/ Differential?? COVID-19, RSV, and Flu A/B, Rapid PCR?? Complete Urinalysis (Urinalysis Complete)?? Ferritin?? Folate Level?? Glucose POC?? Hemoglobin A1C (Monitoring)?? High??Sensitivity??Troponin T (Troponin T, High Sensitivity)?? Hold Urine Culture?? Iron + Iron Binding Capacity?? Magnesium Level?? Osmolality?? Osmolality Urine (Urine Osmolality)?? Peripheral Blood Smear Review?? Reticulocyte Ct?? Sodium Urine (Urine Sodium)?? US Doppler Ext Lower Venous Right?? US Renal Bladder?? Vitamin B12 Level (B12 Vitamin Level)?? Chest 2 Views Frontal and Lat (XR Chest 2 Views Frontal and Lat)?? Foot 2 Views Right?? Tibia/Fibula 2 Views Right (Fibula/Tibia 2 Views Right)?? Primary Care Provider Zari Henry MD? Advance Directive Health Care Proxy on File Yes - Health Care Proxy Discharge Vitals Temperature: 97.7 DegF Height: 165 cm Pulse Rate: 80 bpm Weight: 67.9 kg Respiratory Rate: 20 br/min Body Mass Index:??25.31 kg/m2??High Systolic Blood Pressure:??150 mm Hg??High Body surface area: 1.78 Diastolic Blood Pressure: 71 mm Hg ?? Oxygen Saturation: 98 % ?? Studies Pending All studies ordered during this hospital stay have been completed unless listed below. Please discuss all pending results with your provider listed above in these instructions. ?? Peripheral Blood Smear Review?? What to do next Instructions From Your Doctor You came??to hospital with complain of shortness of breath, increasing pain swelling on lower extremities .?Your symptoms have improved .?You will be discharge home today .?Please do??not take?? Furosemide ( lasix??)?You have?? been started on?? Torsemide?? 20 mg?? mg?? 2 tablet 2 times a for swelling?Cephalexin 500 mg?? 4 times?a day for infection of your legs?Please??follow up with your??primary care physician, please?? call office tomorrow and discuss about repeat blood work to check kidney function and electrolytes in 2-3 days.?You have received insulin Lantus??20 unit at?? 900 am today, please??resume your Insulin pump?? after 7 am tomorrow? Orders? 12/08/24 9:46:00 EST?? Prescriptions??, ??12/08/24 9:46:00 EST?? You Need to Schedule the Following Appointments Follow Up with??Astrid Hall Follow Up with??Zari Henry MD When:??Within 2 to 3 days Where: [address] [facility] [place] [address]- Discharge Medications CIARA QUIROGA :1975 Visit Date:12/07/2024 Medications: Please continue your medications until treatment is completed or stopped by your provider. Medications not listed below should be discontinued. Discuss any questions related to medications with your provider. What How Much When Instructions Next Dose New Cephalexin (cephalexin monohydrate 500 mg oral tablet) 1 tab(s) Oral 4 times a day Duration: 7 Days Pickup at [facility] 3 12pm take every 6 hours until finished New torsemide (torsemide 20 mg oral tablet) 2 tab(s) Oral Twice a day Duration: 30 Days Pickup at [facility] 3 tonight Changed Furosemide (Lasix 20 mg oral tablet) 40 Milligram Oral Daily at Bedtime tonight Unchanged Albuterol (Albuterol (Eqv-Proventil HFA) 90 mcg/ inh inhalation aerosol) 2 puff(s) Inhalation Every 6 hours as needed Unchanged Amlodipine (amLODIPine 10 mg oral tablet) 1 tab(s) Oral Daily 2/10 am Unchanged Aspirin (aspirin 81 mg oral delayed release tablet) 1 tab(s) Oral Daily 210 am Unchanged Atorvastatin (Lipitor 40 mg oral tablet) 1 tab(s) Oral Daily 2/10 am Unchanged Escitalopram (escitalopram 10 mg oral tablet) 1 tab(s) Oral Daily 2/10 am Unchanged Gabapentin (gabapentin 300 mg oral capsule) 1 capsule Oral 3 times a day 1 pm Unchanged Insulin Glargine (Lantus 100 u/ ml subcutaneous solution) 12/09 7 am Unchanged Metoprolol (Toprol XL 100 mg oral tablet, extended release) 1 tab(s) Oral Daily 2/10 am Unchanged Nicotine (nicotine 21 mg/ 24 hr transdermal film, extended release) 1 patch(es) Topically Daily resume home schedule Unchanged Nitroglycerin (nitroglycerin 0.3 mg sublingual tablet) See instructions 1 tablet Sublingual, take PRN for chest pain (if you need to take >1, call PCP), As needed for for chest pain ?? Unchanged Pantoprazole (pantoprazole 40 mg oral delayed release tablet) 40 Milligram Oral Daily Duration: 30 Days 2/10 am Unchanged Podofilox Topical (podofilox 0.5% topical solution) 1 clarice Topically Twice a day use for 3 days, withhold for 4 days, then repeat cycle up to 4 times ?? Unchanged Sucralfate (sucralfate 1 gm oral tablet) before meals Unchanged Trazodone (traZODone 50 mg oral tablet) 100 Milligram Oral Daily at Bedtime [facility] Pharmacy Information [facility] 3: [address] [place] [address] [phone] Prescription Given During Visit Cephalexin (cephalexin monohydrate 500 mg oral tablet) - 1 tablet = 500 mg, By Mouth, 4 times a day, # 28 tablet, 0 Refills, [facility] 3, [address] [place] [address] [phone]?? torsemide (torsemide 20 mg oral tablet) - 2 tablet = 40 mg, By Mouth, 2 times a day, # 120 tablet, 0 Refills, [facility] 3, [address] [place] [address] [phone]?? Laboratory Results Below is a partial list of the most recent Laboratory test results done prior to this discharge. You may have had other tests and procedures not included in this list. Please discuss all test resultswith your provider. Est Creatinine Clearance - 41.95 mL/min (12/08/2024) B12 Vitamin Level (12/07/2024) ???Vitamin B12 Level - 347 pg/mL Basic Metabolic Panel (12/08/2024) ???Sodium - 138 mmol/L???Potassium - 4.8 mmol/L???Chloride - 103 mmol/L???Bicarbonate Level - 25 mmol/L???Anion Gap - 10 mmol/L???Glucose Level - 260 mg/dL???BUN - 50 mg/dL???Creatinine-Blood - 1.83 mg/dL???Estimated GFR Creatinine - 44 ML/MIN/1.73 M2???Calcium - 8.7 mg/dL CBC (12/08/2024) ???WBC - 12.1 k/mm3???RBC - 3.06 m/mm3???Hgb - 7.5 Gm/dL???Hct - 24.1 %???MCV - 78.8 femtoliters???MCH - 24.5 pg???MCHC - 31.1 Gm/dL???Platelet Count - 247 k/mm3???RDW-SD - 59.9 femtoliters???MPV - 10.7 femtoliters???Nucleated RBC (Automated) - 0.0 #/100 WBC'S???Abs. NRBC - 0.0 k/mm3 CBC w/ Differential (12/06/2024) ???WBC - 15.9 k/mm3???RBC - 3.09 m/mm3???Hgb - 7.7 Gm/dL???Hct - 24.2 %???MCV - 78.3 femtoliters???MCH - 24.9 pg???MCHC - 31.8 Gm/dL???Platelet Count - 241 k/mm3???RDW-SD - 61.4 femtoliters???MPV - 10.9 femtoliters???Nucleated RBC (Automated) - 0.0 #/100 WBC'S???Abs. NRBC - 0.0 k/mm3???Abs. Neut - 13.3 k/mm3???Abs. Lymph - 1.1 k/mm3???Abs. [place] - 1.2 k/mm3???Abs. Eo - 0.1 k/mm3???Abs. Baso - 0.0 k/mm3???Neut % - 83.9 %???Lymph % - 7.1 %???[place] % - 7.3 %???Eos % - 0.8 %???Baso % - 0.1 %???Imm Gran - 0.8 %???Abs. Imm Gran - 0.1 k/mm3 COVID-19, RSV, and Flu A/B, Rapid PCR (12/06/2024) ???Influenza A PCR - NEGATIVE???Influenza B PCR - NEGATIVE???RSV PCR - NEGATIVE???COVID-19 PCR Specimen Source - NASAL???COVID-19 PCR Result - NEGATIVE Ferritin (12/07/2024) ???Ferritin Level - 47 ng/mL Folate Level (12/07/2024) ???Folic Acid Level - 8.1 ng/mL GLUCOSE POC (12/08/2024) ???Glucose, POC - 54 mg/dL Hemoglobin A1C (Monitoring) (12/07/2024) ???Hemoglobin A1C (Monitoring) - 8.6 % HOLD URINE CULTURE (12/06/2024) ???Hold Urine Culture - Testing available 48 hours from time of collection. Iron + Iron Binding Capacity (12/07/2024) ???Iron Level - 21 mcg/dL???Iron Binding Capacity, Unsaturated - 282 mcg/dL???Iron Binding Capacity, Estimated Total - 303 mcg/dL???% Iron Saturation - 7 % Magnesium Level (12/08/2024) ???Magnesium - 1.8 mg/dL Osmolality (12/06/2024) ???Osmolality - 307 mOs/kg ProBNP (12/06/2024) ???Nt-Probnp - 3355 pg/mL Reticulocyte Ct (12/07/2024) ???Retic Count - 1.2 %???Retic Count Corrected - 0.7 %???Retic Production Index - 0.3 % Troponin T, High Sensitivity (12/06/2024) ???High Sensitivity Troponin (HSTnT) - 20 ng/L Urinalysis Complete (12/06/2024) ???Appear/Color, Urine - LIGHT YELLOW???Specific [place], Urine - 1.009???pH, Urine - 6.0???Albumin, Urine - 1+???Glucose, Urine - NEGATIVE???Ketones, Urine - NEGATIVE???Bilirubin, Urine - NEGATIVE???Hemoglobin, Urine - NEGATIVE???Nitrite, Urine - NEGATIVE???Leukocyte, Urine - NEGATIVE???Urobilinogen - NORMAL? ?WBC's, Urine - <1 /HPF? ?RBC's, Urine - 2 /HPF Urine Osmolality (12/06/2024) ???Osmolality, Urine Random - 307 mOsm/kg Urine Sodium (12/06/2024) ???Sodium, Urine Random - 76 mmol/L You will be contacted within 72 hours with your results. Allergies (NKA means No Known Allergies) Trulicity metFORMIN Problems No qualifying data available Education Materials Below is the list of Educational Leaflet Providered with your Discharge Instructions. Valuables and Belongings I fully understand and agree that [facility] accepts no responsibility for all my [...] patient Date for Pt to Sign Valuables/Belongings: 12/06/24 22:45:00 ?? Other Discharge Information ? Pulmonary Rehab Status?? Pulmonary Rehab Discharge Status?? Respiratory Rate: 20 br/min ? Common Emergency Awareness Tips IS [...] are strongly encouraged to quit. Please call [facility] Room 21 Media Link at [phone] or [phone]) or log in to [email or web address] for referrals to smoking cessation programs. ?? 192 Suicide & Crisis Lifeline is available 22/05 if you or someone you know needs to find a reason to keep living. By calling 294 you'll be connected to a skilled, trained counselor at a crisis center in your area. INPATIENT DISCHARGE INSTRUCTIONS SIGNATURE CIARA STARKEY Location:[facility] Registration Date and Time:12/07/2024 13:11 EST Primary Care Physician: Zari Henry MD, Attending Physician: Mildred Kwan MD, I ADELFO QUIROGAEL, have received the above patient education materials/instructions and have verbalized understanding. If ambulance or transport services are being used I further acknowledge being givena choice of service. ?? If you need to contact me, please call me at this number: . Patient/Colored Liquid Plastic Applier Name: Patient/[employer]ored [employer] Applier Signature: Relationship to Patient: Witness Name/Signature: Date: * Ana Hunter RN: PERFORM Event Display: Patient Education/Instruction Authored Date: [id number] Inpatient Adult Discharge Instructions. [address] [address] Name: CIARA QUIROGA : 1975?? Visit: 12/07/2024 13:11?? Current Date: 12/08/2024 10:26 ?? Account: [id number]?? Inpatient Adult Discharge Instructions We would like [...] and their families. Surveys are administered by [email or web address] ?? If further treatment with your primary care physician or another doctor is recommended, it is important for you to keep the appointment. Call your primary care physician or return to the Emergency Department immediately if your condition worsens, fails to improve, or new symptoms develop. If you need to find a doctor, you can call [facility] Room 21 Media Link for a referral at [phone] or toll free at [phone] or log in to [email or web address].. ?? [facility], in keeping with [facility] guidance, no longer requires face masks for staff, patientsor visitors in most situations. Similiar to time spent indoors at other locations, there is the chance that you were exposed to repiratory viruses during your time with us (such as flu or COVID-19). If you develop symptoms concerning for a viral respiratory infection, please seek testing (and treatment if indicated) from your medical provider or home test kit. ?? You can view and manage your care through the patient portal or by using a health care clarice of your choosing. [facility] is a website that allows you to securely view your medical information including your hospital discharge summary, office visit summaries, medications and follow-up visits. You can also request appointments, renew medications, and request access to your medical information using a health care clarice of your choosing, or just ask a question. You can enroll at [email or web address] or register during your next office visit. You have been discharged from [facility], Patient Care Unit: D3B??. If you have any questions regarding these instructions, including results of studies pending, afteryou leave, please call us and we will be happy to assist you 22/05. [facility] Your Care Team Attending Physician Mildred Kwan MD?? Consulting Providers Mildred Kwan MD?? Discharging Providers Mildred Kwan MD Reason for Your Visit From home. Increased SOB and edema x1 weeks. Has a known ONE, taking ABX at home. Gained 12lbs in one week. Increased lasix however is still gaining weight.?? Your Diagnosis Shortness of breath Acute on chronic hypoxic respiratory failure Acute exacerbation of CHF (congestive heart failure) Acute kidney injury superimposed on CKD Essential hypertension Hyperlipidemia Asthma COPD type A Type 2 diabetes mellitus (HFpEF) heart failure with preserved ejection fraction Peripheral neuropathy Left adrenal mass Normocytic anemia Chronic GERD Anxiety Anxiety and depression Insomnia Insulin pump in place General medical Tests Performed Below is a partial list of the tests performed during your hospitalization. You may have had other tests and procedures not included in this list. Please discuss all test results with your provider. B12 Vitamin Level Basic Metabolic Panel CBC CBC w/ Differential COVID-19, RSV, and Flu A/B, Rapid PCR Ferritin Folate Level GLUCOSE POC Hemoglobin A1C (Monitoring) HOLD URINE CULTURE Iron + Iron Binding Capacity Magnesium Level Osmolality Peripheral Blood Smear Review?-- Results Pending -- ProBNP Reticulocyte Ct Troponin T, High Sensitivity Urinalysis Complete Urine Osmolality Urine Sodium Fibula/Tibia 2 Views Right Foot 2 Views Right US Doppler Ext Lower Venous Right US Renal Bladder XR Chest 2 Views Frontal and Lat B Type Natriuretic Peptide (NT-proBNP) (ProBNP)?? Basic Metabolic Panel?? CBC?? CBC w/ Differential?? COVID-19, RSV, and Flu A/B, Rapid PCR?? Complete Urinalysis (Urinalysis Complete)?? Ferritin?? Folate Level?? Glucose POC?? Hemoglobin A1C (Monitoring)?? High??Sensitivity??Troponin T (Troponin T, High Sensitivity)?? Hold Urine Culture?? Iron + Iron Binding Capacity?? Magnesium Level?? Osmolality?? Osmolality Urine (Urine Osmolality)?? Peripheral Blood Smear Review?? Reticulocyte Ct?? Sodium Urine (Urine Sodium)?? US Doppler Ext Lower Venous Right?? US Renal Bladder?? Vitamin B12 Level (B12 Vitamin Level)?? Chest 2 Views Frontal and Lat (XR Chest 2 Views Frontal and Lat)?? Foot 2 Views Right?? Tibia/Fibula 2 Views Right (Fibula/Tibia 2 Views Right)?? Primary Care Provider Zari Henry MD? Advance Directive Health Care Proxy on File Yes - Health Care Proxy Discharge Vitals Temperature: 97.7 DegF Height: 165 cm Pulse Rate: 80 bpm Weight: 67.9 kg Respiratory Rate: 20 br/min Body Mass Index:??25.31 kg/m2??High Systolic Blood Pressure:??150 mm Hg??High Body surface area: 1.78 Diastolic Blood Pressure: 71 mm Hg ?? Oxygen Saturation: 98 % ?? Studies Pending All studies ordered during this hospital stay have been completed unless listed below. Please discuss all pending results with your provider listed above in these instructions. ?? Peripheral Blood Smear Review?? What to do next Instructions From Your Doctor You came??to hospital with complain of shortness of breath, increasing pain swelling on lower extremities .?Your symptoms have improved .?You will be discharge home today .?Please do??not take?? Furosemide ( lasix??)?You have?? been started on?? Torsemide?? 20 mg?? mg?? 2 tablet 2 times a for swelling?Cephalexin 500 mg?? 4 times?a day for infection of your legs?Please??follow up with your??primary care physician, please?? call office tomorrow and discuss about repeat blood work to check kidney function and electrolytes in 2-3 days.?You have received insulin Lantus??20 unit at?? 900 am today, please??resume your Insulin pump?? after 7 am tomorrow? Orders? 12/08/24 9:46:00 EST?? Prescriptions??, ??12/08/24 9:46:00 EST?? You Need to Schedule the Following Appointments Follow Up with??Astrid Hall Follow Up with??Zari Henry MD When:??Within 2 to 3 days Where: [address] [place] [address]- Discharge Medications CIARA QUIROGA :1975 Visit Date:12/07/2024 Medications: Please continue your medications until treatment is completed or stopped by your provider. Medications not listed below should be discontinued. Discuss any questions related to medications with your provider. What How Much When Instructions Next Dose New Cephalexin (cephalexin monohydrate 500 mg oral tablet) 1 tab(s) Oral 4 times a day Duration: 7 Days Pickup at [facility] 3 New torsemide (torsemide 20 mg oral tablet) 2 tab(s) Oral Twice a day Duration: 30 Days Pickup at [facility] 3 Changed Furosemide (Lasix 20 mg oral tablet) 40 Milligram Oral Daily at Bedtime Unchanged Albuterol (Albuterol (Eqv-Proventil HFA) 90 mcg/ inh inhalation aerosol) 2 puff(s) Inhalation Every 6 hours Unchanged Amlodipine (amLODIPine 10 mg oral tablet) 1 tab(s) Oral Daily Unchanged Aspirin (aspirin 81 mg oral delayed release tablet) 1 tab(s) Oral Daily Unchanged Atorvastatin (Lipitor 40 mg oral tablet) 1 tab(s) Oral Daily Unchanged Escitalopram (escitalopram 10 mg oral tablet) 1 tab(s) Oral Daily Unchanged Gabapentin (gabapentin 300 mg oral capsule) 1 capsule Oral 3 times a day Unchanged Insulin Glargine (Lantus 100 u/ ml subcutaneous solution) Unchanged Metoprolol (Toprol XL 100 mg oral tablet, extended release) 1 tab(s) Oral Daily Unchanged Nicotine (nicotine 21 mg/ 24 hr transdermal film, extended release) 1 patch(es) Topically Daily Unchanged Nitroglycerin (nitroglycerin 0.3 mg sublingual tablet) See instructions 1 tablet Sublingual, take PRN for chest pain (if you need to take >1, call PCP), As needed for for chest pain ?? Unchanged Pantoprazole (pantoprazole 40 mg oral delayed release tablet) 40 Milligram Oral Daily Duration: 30 Days Unchanged Podofilox Topical (podofilox 0.5% topical solution) 1 clarice Topically Twice a day use for 3 days, withhold for 4 days, then repeat cycle up to 4 times ?? Unchanged Sucralfate (sucralfate 1 gm oral tablet) Unchanged Trazodone (traZODone 50 mg oral tablet) 100 Milligram Oral Daily at Bedtime Pharmacy Information [facility] 3: [address], [place] [phone] Prescription Given During Visit Cephalexin (cephalexin monohydrate 500 mg oral tablet) - 1 tablet = 500 mg, By Mouth, 4 times a day, # 28 tablet, 0 Refills, [facility] 3, [address] [place] [address] [phone]?? torsemide (torsemide 20 mg oral tablet) - 2 tablet = 40 mg, By Mouth, 2 times a day, # 120 tablet, 0 Refills, [facility] 9, [address] [place] [address] [phone]?? Laboratory Results Below is a partial list of the most recent Laboratory test results done prior to this discharge. You may have had other tests and procedures not included in this list. Please discuss all test resultswith your provider. Est Creatinine Clearance - 41.95 mL/min (12/08/2024) B12 Vitamin Level (12/07/2024) ???Vitamin B12 Level - 347 pg/mL Basic Metabolic Panel (12/08/2024) ???Sodium - 138 mmol/L???Potassium - 4.8 mmol/L???Chloride - 103 mmol/L???Bicarbonate Level - 25 mmol/L???Anion Gap - 10 mmol/L???Glucose Level - 260 mg/dL???BUN - 50 mg/dL???Creatinine-Blood - 1.83 mg/dL???Estimated GFR Creatinine - 44 ML/MIN/1.73 M2???Calcium - 8.7 mg/dL CBC (12/08/2024) ???WBC - 12.1 k/mm3???RBC - 3.06 m/mm3???Hgb - 7.5 Gm/dL???Hct - 24.1 %???MCV - 78.8 femtoliters???MCH - 24.5 pg???MCHC - 31.1 Gm/dL???Platelet Count - 247 k/mm3???RDW-SD - 59.9 femtoliters???MPV - 10.7 femtoliters???Nucleated RBC (Automated) - 0.0 #/100 WBC'S???Abs. NRBC - 0.0 k/mm3 CBC w/ Differential (12/06/2024) ???WBC - 15.9 k/mm3???RBC - 3.09 m/mm3???Hgb - 7.7 Gm/dL???Hct - 24.2 %???MCV - 78.3 femtoliters???MCH - 24.9 pg???MCHC - 31.8 Gm/dL???Platelet Count - 241 k/mm3???RDW-SD - 61.4 femtoliters???MPV - 10.9 femtoliters???Nucleated RBC (Automated) - 0.0 #/100 WBC'S???Abs. NRBC - 0.0 k/mm3???Abs. Neut - 13.3 k/mm3???Abs. Lymph - 1.1 k/mm3???Abs. [place] - 1.2 k/mm3???Abs. Eo - 0.1 k/mm3???Abs. Baso - 0.0 k/mm3???Neut % - 83.9 %???Lymph % - 7.1 %???[place] % - 7.3 %???Eos % - 0.8 %???Baso % - 0.1 %???Imm Gran - 0.8 %???Abs. Imm Gran - 0.1 k/mm3 COVID-19, RSV, and Flu A/B, Rapid PCR (12/06/2024) ???Influenza A PCR - NEGATIVE???Influenza B PCR - NEGATIVE???RSV PCR - NEGATIVE???COVID-19 PCR Specimen Source - NASAL???COVID-19 PCR Result - NEGATIVE Ferritin (12/07/2024) ???Ferritin Level - 47 ng/mL Folate Level (12/07/2024) ???Folic Acid Level - 8.1 ng/mL GLUCOSE POC (12/08/2024) ???Glucose, POC - 54 mg/dL Hemoglobin A1C (Monitoring) (12/07/2024) ???Hemoglobin A1C (Monitoring) - 8.6 % HOLD URINE CULTURE (12/06/2024) ???Hold Urine Culture - Testing available 48 hours from time of collection. Iron + Iron Binding Capacity (12/07/2024) ???Iron Level - 21 mcg/dL???Iron Binding Capacity, Unsaturated - 282 mcg/dL???Iron Binding Capacity, Estimated Total - 303 mcg/dL???% Iron Saturation - 7 % Magnesium Level (12/08/2024) ???Magnesium - 1.8 mg/dL Osmolality (12/06/2024) ???Osmolality - 307 mOs/kg ProBNP (12/06/2024) ???Nt-Probnp - 3355 pg/mL Reticulocyte Ct (12/07/2024) ???Retic Count - 1.2 %???Retic Count Corrected - 0.7 %???Retic Production Index - 0.3 % Troponin T, High Sensitivity (12/06/2024) ???High Sensitivity Troponin (HSTnT) - 20 ng/L Urinalysis Complete (12/06/2024) ???Appear/Color, Urine - LIGHT YELLOW???Specific [place], Urine - 1.009???pH, Urine - 6.0???Albumin, Urine - 1+???Glucose, Urine - NEGATIVE???Ketones, Urine - NEGATIVE???Bilirubin, Urine - NEGATIVE???Hemoglobin, Urine - NEGATIVE???Nitrite, Urine - NEGATIVE???Leukocyte, Urine - NEGATIVE???Urobilinogen - NORMAL? ?WBC's, Urine - <1 /HPF? ?RBC's, Urine - 2 /HPF Urine Osmolality (12/06/2024) ???Osmolality, Urine Random - 307 mOsm/kg Urine Sodium (12/06/2024) ???Sodium, Urine Random - 76 mmol/L You will be contacted within 72 hours with your results. Allergies (NKA means No Known Allergies) Trulicity metFORMIN Problems No qualifying data available Education Materials Below is the list of Educational Leaflet Providered with your Discharge Instructions. Valuables and Belongings I fully understand and agree that [facility] accepts no responsibility for all my [...] patient Date for Pt to Sign Valuables/Belongings: 12/06/24 22:45:00 ?? Other Discharge Information ? Pulmonary Rehab Status?? Pulmonary Rehab Discharge Status?? Respiratory Rate: 20 br/min ? Common Emergency Awareness Tips IS [...] are strongly encouraged to quit. Please call [facility] Room 21 Media Link at [phone] or [phone] or log in to [email or web address] for referrals to smoking cessation programs. ?? 726 Suicide & Crisis Lifeline is available 22/05 if you or someone you know needs to find a reason to keep living. By calling 881 you'll be connected to a skilled, trained counselor at a crisis center in your area. INPATIENT DISCHARGE INSTRUCTIONS SIGNATURE PAGE CIARA QUIROGA Location:[facility] Registration Date and Time:12/07/2024 13:11 EST Primary Care Physician: Carl MICHELLE, Zari Caraballo, Attending Physician: Mildred Kwan MD, I CIARA QUIROGA, have received the above patient education materials/instructions and have verbalized understanding. If ambulance or transport services are being used I further acknowledge being givena choice of service. ?? If you need to contact me, please call me at this number: . Patient/Colored Liquid Plastic Applier Name: Patient/Colored Liquid Plastic Applier Signature: Relationship to Patient: Witness Name/Signature: Date: * Ana Hunter RN: PERFORM Event Display: Patient Education/Instruction Authored Date: [id number] Inpatient Adult Discharge Instructions. [address] [address] Name: CIARA QUIROGA : 1975?? Visit: 12/07/2024 13:11?? Current Date: 12/08/2024 10:18 ?? Account: [id number]?? Inpatient Adult Discharge Instructions We would like [...] and their families. Surveys are administered by [email or web address] ?? If further treatment with your primary care physician or another doctor is recommended, it is important for you to keep the appointment. Call your primary care physician or return to the Emergency Department immediately if your condition worsens, fails to improve, or new symptoms develop. If you need to find a doctor, you can call [facility] Room 21 Media Link for a referral at [phone] or toll free at [phone] or log in to [email or web address].. ?? [facility], in keeping with [facility] guidance, no longer requires face masks for staff, patientsor visitors in most situations. Similiar to time spent indoors at other locations, there is the chance that you were exposed to repiratory viruses during your time with us (such as flu or COVID-19). If you develop symptoms concerning for a viral respiratory infection, please seek testing (and treatment if indicated) from your medical provider or home test kit. ?? You can view and manage your care through the patient portal or by using a health care clarice of your choosing. [facility] is a website that allows you to securely view your medical information including your hospital discharge summary, office visit summaries, medications and follow-up visits. You can also request appointments, renew medications, and request access to your medical information using a health care clarice of your choosing, or just ask a question. You can enroll at [email or web address] or register during your next office visit. You have been discharged from [facility], Patient Care Unit: D3B??. If you have any questions regarding these instructions, including results of studies pending, afteryou leave, please call us and we will be happy to assist you 22/05. [facility] Your Care Team Attending Physician Mildred Kwan MD?? Consulting Providers Mildred Kwan MD?? Discharging Providers Mildred Kwan MD Reason for Your Visit From home. Increased SOB and edema x1 weeks. Has a known ONE, taking ABX at home. Gained 12lbs in one week. Increased lasix however is still gaining weight.?? Your Diagnosis Shortness of breath Acute on chronic hypoxic respiratory failure Acute exacerbation of CHF (congestive heart failure) Acute kidney injury superimposed on CKD Essential hypertension Hyperlipidemia Asthma COPD type A Type 2 diabetes mellitus (HFpEF) heart failure with preserved ejection fraction Peripheral neuropathy Left adrenal mass Normocytic anemia Chronic GERD Anxiety Anxiety and depression Insomnia Insulin pump in place General medical Tests Performed Below is a partial list of the tests performed during your hospitalization. You may have had other tests and procedures not included in this list. Please discuss all test results with your provider. B12 Vitamin Level Basic Metabolic Panel CBC CBC w/ Differential COVID-19, RSV, and Flu A/B, Rapid PCR Ferritin Folate Level GLUCOSE POC Hemoglobin A1C (Monitoring) HOLD URINE CULTURE Iron + Iron Binding Capacity Magnesium Level Osmolality Peripheral Blood Smear Review?-- Results Pending -- ProBNP Reticulocyte Ct Troponin T, High Sensitivity Urinalysis Complete Urine Osmolality Urine Sodium Fibula/Tibia 2 Views Right Foot 2 Views Right US Doppler Ext Lower Venous Right US Renal Bladder XR Chest 2 Views Frontal and Lat B Type Natriuretic Peptide (NT-proBNP) (ProBNP)?? Basic Metabolic Panel?? CBC?? CBC w/ Differential?? COVID-19, RSV, and Flu A/B, Rapid PCR?? Complete Urinalysis (Urinalysis Complete)?? Ferritin?? Folate Level?? Glucose POC?? Hemoglobin A1C (Monitoring)?? High??Sensitivity??Troponin T (Troponin T, High Sensitivity)?? Hold Urine Culture?? Iron + Iron Binding Capacity?? Magnesium Level?? Osmolality?? Osmolality Urine (Urine Osmolality)?? Peripheral Blood Smear Review?? Reticulocyte Ct?? Sodium Urine (Urine Sodium)?? US Doppler Ext Lower Venous Right?? US Renal Bladder?? Vitamin B12 Level (B12 Vitamin Level)?? Chest 2 Views Frontal and Lat (XR Chest 2 Views Frontal and Lat)?? Foot 2 Views Right?? Tibia/Fibula 2 Views Right (Fibula/Tibia 2 Views Right)?? Primary Care Provider Zari Henry MD? Advance Directive Health Care Proxy on File Yes - Health Care Proxy Discharge Vitals Temperature: 97.7 DegF Height: 165 cm Pulse Rate: 80 bpm Weight: 67.9 kg Respiratory Rate: 20 br/min Body Mass Index:??25.31 kg/m2??High Systolic Blood Pressure:??150 mm Hg??High Body surface area: 1.78 Diastolic Blood Pressure: 71 mm Hg ?? Oxygen Saturation: 98 % ?? Studies Pending All studies ordered during this hospital stay have been completed unless listed below. Please discuss all pending results with your provider listed above in these instructions. ?? Peripheral Blood Smear Review?? What to do next Instructions From Your Doctor You came??to hospital with complain of shortness of breath, increasing pain swelling on lower extremities .?Your symptoms have improved .?You will be discharge home today .?Please do??not take?? Furosemide ( lasix??)?You have?? been started on?? Torsemide?? 20 mg?? mg?? 2 tablet 2 times a for swelling?Cephalexin 500 mg?? 4 times?a day for infection of your legs?Please??follow up with your??primary care physician, please?? call office tomorrow and discuss about repeat blood work to check kidney function and electrolytes in 2-3 days.?You have received insulin Lantus??20 unit at?? 900 am today, please??resume your Insulin pump?? after 7 am tomorrow? Orders? 12/08/24 9:46:00 EST?? Prescriptions??, ??12/08/24 9:46:00 EST?? You Need to Schedule the Following Appointments Follow Up with??Astrid Hall Follow Up with??Zari Henry MD When:??Within 2 to 3 days Where: [address] [place] [address]- Discharge Medications CIARA QUIROGA :1975 Visit Date:12/07/2024 Medications: Please continue your medications until treatment is completed or stopped by your provider. Medications not listed below should be discontinued. Discuss any questions related to medications with your provider. What How Much When Instructions Next Dose New Cephalexin (cephalexin monohydrate 500 mg oral tablet) 1 tab(s) Oral 4 times a day Duration: 7 Days Pickup at [facility] 3 start today 12pm , take every 6 hours until finished New torsemide (torsemide 20 mg oral tablet) 2 tab(s) Oral Daily Duration: 30 Days Pickup at [facility] 3 2/10 am Changed Furosemide (Lasix 20 mg oral tablet) 40 Milligram Oral Daily at Bedtime tonight Unchanged Albuterol (Albuterol (Eqv-Proventil HFA) 90 mcg/ inh inhalation aerosol) 2 puff(s) Inhalation Every 6 hours as needed Unchanged Amlodipine (amLODIPine 10 mg oral tablet) 1 tab(s) Oral Daily 2/10 Unchanged Aspirin (aspirin 81 mg oral delayed release tablet) 1 tab(s) Oral Daily 2/10 Unchanged Atorvastatin (Lipitor 40 mg oral tablet) 1 tab(s) Oral Daily 2/10 Unchanged Escitalopram (escitalopram 10 mg oral tablet) 1 tab(s) Oral Daily 2/10 Unchanged Gabapentin (gabapentin 300 mg oral capsule) 1 capsule Oral 3 times a day 1pm today Unchanged Insulin Glargine (Lantus 100 u/ ml subcutaneous solution) resume 2/10 morning Unchanged Metoprolol (Toprol XL 100 mg oral tablet, extended release) 1 tab(s) Oral Daily 2/10 Unchanged Nicotine (nicotine 21 mg/ 24 hr transdermal film, extended release) 1 patch(es) Topically Daily resume home schedule Unchanged Nitroglycerin (nitroglycerin 0.3 mg sublingual tablet) See instructions 1 tablet Sublingual, take PRN for chest pain (if you need to take >1, call PCP), As needed for for chest pain ?? as needed Unchanged Pantoprazole (pantoprazole 40 mg oral delayed release tablet) 40 Milligram Oral Daily Duration: 30 Days 12/09 Unchanged Podofilox Topical (podofilox 0.5% topical solution) 1 clarice Topically Twice a day use for 3 days, withhold for 4 days, then repeat cycle up to 4 times ?? resume home schedule Unchanged Sucralfate (sucralfate 1 gm oral tablet) before meals Unchanged Trazodone (traZODone 50 mg oral tablet) 100 Milligram Oral Daily at Bedtime [facility] Pharmacy Information [facility] 3: [address] [place] [address] [phone] Prescription Given During Visit Cephalexin (cephalexin monohydrate 500 mg oral tablet) - 1 tablet = 500 mg, By Mouth, 4 times a day, # 28 tablet, 0 Refills, [facility] 3, [address] [place] [phone] [phone]?? torsemide (torsemide 20 mg oral tablet) - 2 tablet = 40 mg, By Mouth, Daily, # 120 tablet, 0 Refills, [facility] [address] [address] [id number]?? Laboratory Results Below is a partial list of the most recent Laboratory test results done prior to this discharge. You may have had other tests and procedures not included in this list. Please discuss all test resultswith your provider. Est Creatinine Clearance - 41.95 mL/min (12/08/2024) B12 Vitamin Level (12/07/2024) ???Vitamin B12 Level - 347 pg/mL Basic Metabolic Panel (12/08/2024) ???Sodium - 138 mmol/L???Potassium - 4.8 mmol/L???Chloride - 103 mmol/L???Bicarbonate Level - 25 mmol/L???Anion Gap - 10 mmol/L???Glucose Level - 260 mg/dL???BUN - 50 mg/dL???Creatinine-Blood - 1.83 mg/dL???Estimated GFR Creatinine - 44 ML/MIN/1.73 M2???Calcium - 8.7 mg/dL CBC (12/08/2024) ???WBC - 12.1 k/mm3???RBC - 3.06 m/mm3???Hgb - 7.5 Gm/dL???Hct - 24.1 %???MCV - 78.8 femtoliters???MCH - 24.5 pg???MCHC - 31.1 Gm/dL???Platelet Count - 247 k/mm3???RDW-SD - 59.9 femtoliters???MPV - 10.7 femtoliters???Nucleated RBC (Automated) - 0.0 #/100 WBC'S???Abs. NRBC - 0.0 k/mm3 CBC w/ Differential (12/06/2024) ???WBC - 15.9 k/mm3???RBC - 3.09 m/mm3???Hgb - 7.7 Gm/dL???Hct - 24.2 %???MCV - 78.3 femtoliters???MCH - 24.9 pg???MCHC - 31.8 Gm/dL???Platelet Count - 241 k/mm3???RDW-SD - 61.4 femtoliters???MPV - 10.9 femtoliters???Nucleated RBC (Automated) - 0.0 #/100 WBC'S???Abs. NRBC - 0.0 k/mm3???Abs. Neut - 13.3 k/mm3???Abs. Lymph - 1.1 k/mm3???Abs. [place] - 1.2 k/mm3???Abs. Eo - 0.1 k/mm3???Abs. Baso - 0.0 k/mm3???Neut % - 83.9 %???Lymph % - 7.1 %???[place] % - 7.3 %???Eos % - 0.8 %???Baso % - 0.1 %???Imm Gran - 0.8 %???Abs. Imm Gran - 0.1 k/mm3 COVID-19, RSV, and Flu A/B, Rapid PCR (12/06/2024) ???Influenza A PCR - NEGATIVE???Influenza B PCR - NEGATIVE???RSV PCR - NEGATIVE???COVID-19 PCR Specimen Source - NASAL???COVID-19 PCR Result - NEGATIVE Ferritin (12/07/2024) ???Ferritin Level - 47 ng/mL Folate Level (12/07/2024) ???Folic Acid Level - 8.1 ng/mL GLUCOSE POC (12/08/2024) ???Glucose, POC - 54 mg/dL Hemoglobin A1C (Monitoring) (12/07/2024) ???Hemoglobin A1C (Monitoring) - 8.6 % HOLD URINE CULTURE (12/06/2024) ???Hold Urine Culture - Testing available 48 hours from time of collection. Iron + Iron Binding Capacity (12/07/2024) ???Iron Level - 21 mcg/dL???Iron Binding Capacity, Unsaturated - 282 mcg/dL???Iron Binding Capacity, Estimated Total - 303 mcg/dL???% Iron Saturation - 7 % Magnesium Level (12/08/2024) ???Magnesium - 1.8 mg/dL Osmolality (12/06/2024) ???Osmolality - 307 mOs/kg ProBNP (12/06/2024) ???Nt-Probnp - 3355 pg/mL Reticulocyte Ct (12/07/2024) ???Retic Count - 1.2 %???Retic Count Corrected - 0.7 %???Retic Production Index - 0.3 % Troponin T, High Sensitivity (12/06/2024) ???High Sensitivity Troponin (HSTnT) - 20 ng/L Urinalysis Complete (12/06/2024) ???Appear/Color, Urine - LIGHT YELLOW???Specific [place], Urine - 1.009???pH, Urine - 6.0???Albumin, Urine - 1+???Glucose, Urine - NEGATIVE???Ketones, Urine - NEGATIVE???Bilirubin, Urine - NEGATIVE???Hemoglobin, Urine - NEGATIVE???Nitrite, Urine - NEGATIVE???Leukocyte, Urine - NEGATIVE???Urobilinogen - NORMAL? ?WBC's, Urine - <1 /HPF? ?RBC's, Urine - 2 /HPF Urine Osmolality (12/06/2024) ???Osmolality, Urine Random - 307 mOsm/kg Urine Sodium (12/06/2024) ???Sodium, Urine Random - 76 mmol/L You will be contacted within 72 hours with your results. Allergies (NKA means No Known Allergies) Trulicity metFORMIN Problems No qualifying data available Education Materials Below is the list of Educational Leaflet Providered with your Discharge Instructions. Valuables and Belongings I fully understand and agree that [facility] accepts no responsibility for all my [...] patient Date for Pt to Sign Valuables/Belongings: 12/06/24 22:45:00 ?? Other Discharge Information ? Pulmonary Rehab Status?? Pulmonary Rehab Discharge Status?? Respiratory Rate: 20 br/min ? Common Emergency Awareness Tips IS [...] are strongly encouraged to quit. Please call [facility] Room 21 Media Link at [phone] or [phone] or log in to [email or web address] for referrals to smoking cessation programs. ?? 396 Suicide & Crisis Lifeline is available 22/05 if you or someone you know needs to find a reason to keep living. By calling 218 you'll be connected to a skilled, trained counselor at a crisis center in your area. INPATIENT DISCHARGE INSTRUCTIONS SIGNATURE CIARA STARKEY Location:[facility] Registration Date and Time:12/07/2024 13:11 EST Primary Care Physician: Zari Henry MD, Attending Physician: Mildred Kwan MD, I CIARA QUIROGA, have received the above patient education materials/instructions and have verbalized understanding. If ambulance or transport services are being used I further acknowledge being givena choice of service. ?? If you need to contact me, please call me at this number: . Patient/Colored Liquid Plastic Applier Name: Patient/Colored Liquid Plastic Applier Signature: Relationship to Patient: Witness Name/Signature: Date: * Mildred Kwan MD: PERFORM, SIGN, VERIFY Event Display: Patient Education Handout Authored Date: [id number] Patient Care team information Care Team Personnel Name: Rachel Williamson RN Position: [facility] RN Member Role: Primary Care Nurse Name: Feliberto Sosa RN Position: S RN Member Role: Primary Care Nurse Name: Ana Hunter RN Position: S RN Member Role: Primary Care Nurse Name: May Lo RN Position: S RN Member Role: Primary Care Nurse Name: Shelley Emmanuel RN Position: S RN Member Role: Primary Care Nurse Name: Jessy Abad RN Position: [facility] RN Member Role: Primary Care Nurse Name: Zari Henry MD Position: [facility] Physician - Primary Care Member Role: PCP Address: [address] [place] [address] Telecom: Care Team Related Persons Name: VELMA ASIF Insurance Providers Guarantor name: [employer] Health Plan Information #: 1 Payer: [employer] Member Number: [id number] Policy Number: DELMIS Group Number: [facility] Health Plan Information #: 2 Payer: [employer] Member Number: [id number] Policy Number: DELMIS Group Number: [id number]
--- OUTSIDE RECORDS SUMMARY | 2024-12-10 15:07 | XMS_ITS | Continuity of Care Document ---
Author Organization [facility] ter Address [address] [place] [id number]- Care Team Providers Care Hookman Name Role Phone Zari Henry MD Primary Care Physician Encounter [facility] NBR [id number] Date(s): 12/06/24 - 12/06/[address] [address]- Discharge Disposition: A-Error Chart/Home (ED Only) Attending Physician: Not on Staff, Attending MD Admitting Physician: Not on Staff, Admitting MD Referring Physician: Not on Staff, Referring MD Encounter Type: Disch ES Allergies, Adverse Reactions, Alerts Substance Criticality Severity Reaction Reaction Severity Status metFORMIN Active Trulicity Active Immunizations Given and Recorded Vaccine Date Status Refusal Reason influenza virus vaccine, inactivated 07/22/22 Give n Medications Albuterol (Eqv-Proventil HFA) 90 mcg/inh inhalation aerosol 2 puffs, Inhalation, Every 6 hours, # 6.7 Gm, 0 Refills, Maintenance, 07/25/22 3:49:00 PM EDT, [facility], Partial fill upon patient request [...] 11:16:00 AM EDT, Route to Pharmacy Electronically, [facility], Partial fill upon patient request if the prescription is for a schedule II opioid drug., 165, cm, 04/11/22 8:29:00 EDT, Height, 59, kg, 04/07/22 22:23:00 EDT, Dry Weight Start Date: 04/11/22 Status: Ordered Quantity: 30.0 Unit: tablet Repeat number: 1 aspirin 81 mg oral delayed release tablet 81 mg, 1, tablet, By Mouth, Daily, # 30 tablet, Refills 0, Maintenance, 04/10/23 10:37:00 PM EDT, Partial fill upon patient request if the prescription is for a schedule II opioid drug. Start Date: 04/10/23 Status: Ordered Quantity: 30.0 Unit: tablet Repeat number: 1 escitalopram 10 [...] Quantity: 90.0 Unit: capsule Repeat number: 1 Lantus 100 u/ml subcutaneous [...] Quantity: 30.0 Unit: tablet Repeat number: 1 Lasix 40 mg oral tablet 80 mg, By Mouth, Daily, # 30 tablet, Refills [...] Refills, Maintenance, 04/11/22 11:08:00 AM EDT, Tablet, [facility], Partial fill upon patient request if [...] Quantity: 30.0 Unit: tablet Repeat number: 1 traZODone 50 mg oral tablet 100 mg, By Mouth, Daily at bedtime, # 15 tablet, Refills 0, Maintenance, 04/07/22 10:37:00 PM EDT, Partial fill upon patient request if the prescription is for a schedule II opioid drug. Start Date: 04/07/22 Status: Ordered Quantity: 15.0 Unit: tablet Repeat number: 1 Social History Social History Type Response Smoking Status 5-9 cigarettes (betw een 1/4 to 1/2 pack)/day in last 30 days; Interested in cessation: Yes entered on: 04/07/22 Sex Male Sex Representation Male (finding) Patient Care team information Care Team Personnel Name: Rachel Williamson RN Position: [facility] RN Member Role: Primary Care Nurse Name: Shelley Emmanuel RN Position: S RN Member Role: Primary Care Nurse Name: Jessy Abad RN Position: S RN Member Role: Primary Care Nurse Name: Zari Henry MD Position: [facility] Physician - Primary Care Member Role: PCP Address: [address] [place] [id number] Telecom: Care Team Related Persons Name: VELMA ASIF Insurance Providers Guarantor name: Health Plan Information #: 1 Payer: [employer] Member Number: [id number] Policy Number: Group Number: NA Health Plan Information #: 2 Payer: [employer] Member Number: NA Policy Number: NA Group Number: NA
--- OUTSIDE RECORDS SUMMARY | 2024-12-10 15:07 | XMS_ITS | Encounter Summary ---
Author Organization [facility] [place] [address] Care Team Providers Care [employer] Helper Name Role Phone Zari Henry MD Primary Care Provider [phone] Encounter Details Date Type Department Care Team (Late st Contact Info) Description 12/10/2024 Telephone Adult Medicine [address] [phone] Tonya Patel, RN Social History Tobacco Use Types Packs/Day Years Used Date Smoking Tobacco: Light Smoker Cigarettes 0.5 34.1 Started: 10/30/1990 Smokeless Tobacco: Never Alcohol Use Standard Drinks/Week Comments Yes 0 (1 standard drink = 0.6 oz pur e alcohol) Sex and Gender Information Value Date Recorded Sex Assigned at Not on file Legal Sex Male 4:34 AM EST Gender Identity Not on file Sexual Orientation Not on file documented as of this encounter Progress Notes * Tonya Patel RN - 12/10/2024 2:15 PM EST Per Andreea Nichole LPN; TCM call completed with patient. Discharged from [facility] on 12/08/2024 Shortness of breath Acute on chronic hypoxic respiratory failure Acute exacerbation of CHF (congestive heart failure) Acute kidney injury superimposed on CKD Essential hypertension Hyperlipidemia Asthma COPD type A Type 2 diabetes mellitus (HFpEF) heart failure with preserved ejection fraction Peripheral neuropathy Left adrenal mass Normocytic anemia Chronic GERD Anxiety Anxiety and depression Insomnia Insulin pump in place Patient reports continued swelling at LE and abdomen, has lost 10 lbs. + shortness of breath when laying down and with exertion, subsides with rest + cough + congestion Feels redness associated with cellulitis has spread up a small amount Patient reports nurse the medical [facility] he is staying at checked his temperature this morning, itwas 100.0 Can you please call patient to discuss and advise? He states his symptoms have improved since he was discharged from the hospital. An appointment was made for him to be seen in the office on 12/13/24 at 1:[address] Henry and he is in agreement with this plan. documented in this encounter Plan of Treatment Upcoming Encounters Date Type Department Care Team (Late st Contact Info) Description 12/13/2024 1:00 PM EST Office Visit Adult Medicine [address] [phone] Zari Henry MD [address] [place] [address] 01/17/2025 4:20 PM EDT Office Visit Endocrinology [address] [phone] Lea Alex PA [address] [place] [address] 03/07/2025 2:00 PM EDT Office Visit Pulmonolgy - [place] [address] [phone] Nisa Machado MD [address] [address] 06/10/2025 12:00 PM EDT [facility] [address] [place] [address] Jong Hall MD [address] [phone] documented as of this encounter Visit Diagnoses Not on filedocumented in this encounter Care Teams [employer] Helper Relationship Specialty Start Date End Date Zari Henry MD [address] [place] [address] PCP - General Internal Medicine 08/17/21 documented as of this encounter
--- OUTSIDE RECORDS SUMMARY | 2024-12-10 15:07 | XMS_ITS | Clinical Summary ---
Author Organization 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 12/23/19 21 Active escitalopram (LEXAPRO) 10 mg tablet Take 1 tablet (10 mg total) by mouth 1 (one) time each day. 01/06/20 22 Active gabapentin (NEURONTIN) 300 mg capsule Take 1 capsule (300 mg total) by mouth 3 (three) times a day. 11/02/19 22 Active lisinopril (PRINIVIL,ZESTR IL) 40 mg tablet Take 1 tablet (40 mg total) by mouth 1 (one) time each day. 11/02/19 22 Active metoprolol succinate (TOPROL-XL) 100 mg 24 hr tablet Take 1 tablet (100 mg total) by mouth 1 (one) time each day. 11/02/19 22 Active nicotine (Nicotrol) 10 mg inhaler INHALE 1 PUFF INTO THE LUNGS NEEDED FOR SMOKING CESSATION EVERY 2 HOURS. 07/16/20 21 Active omeprazole (PriLOSEC) [address] capsule Take 1 capsule (40 mg total) by mouth 1 (one) time each day. 08/17/20 21 Active sucralfate (CARAFATE) 1 gram tablet Take 1 Tablet by mouth 4 times daily. 05/15/20 24 Active tadalafiL (CIALIS) 20 mg tablet Take 1 tablet (20 mg total) by mouth. 06/08/20 20 Active atorvastatin (LIPITOR) 40 mg tablet TAKE 1 TABLET BY MOUTH EVERY DAY 90 tablet 1 11/07/19 25 Active insulin pump cart,cont inf,BT (Omnipod Dash Pods, Gen 4,) cartridge Inject 1 each under the skin every 3 (three) days. 10 each 3 09/12/20 24 Active isosorbide mononitrate (IMDUR) 30 mg 24 hr tablet TAKE 1 TABLET BY MOUTH EVERY DAY 90 tablet 1 12/09/19 25 Active Ventolin HFA 90 mcg/actuation inhaler INHALE 2 PUFFS INTO THE LUNGS EVERY 4 HOURS NEEDED FOR WHEEZING FOR UP TO 30 DAYS. 18 each 2 09/25/20 24 Active amLODIPine (NORVASC) 5 mg tablet Take 2 tablets (10 mg total) by mouth 1 (one) time each day. 30 tablet 10/29/20 24 Active oxyCODONE-aceta minophen (PERCOCET) 5-325 mg per tabletIndicatio ns:Muscle cramp Take 1 tablet by mouth every 6 (six) hours if needed for severe pain for up to 15 doses. Max Daily Amount: 4 tablets 15 tablet 12/01/19 25 Active Advair Diskus 250-50 mcg/dose diskus inhaler Inhale 1 puff by mouth 2 (two) times a day. Active hydrALAZINE (APRESOLINE) 100 mg tablet Take 1 tablet (100 mg total) by mouth 3 (three) times a day. Active furosemide (LASIX) 40 mg tablet Take 2 tablets (80 mg total) by mouth 2 (two) times a day. In the evening; lasix 80 mg in the am 180 tablet 1 12/05/19 25 Active umeclidinium-vi lanteroL (ANORO ELLIPTA) 62.5-25 mcg/actuation inhaler 12/13/19 22 025 Discontinued furosemide (LASIX) 20 mg tablet Take 1 tablet (20 mg total) by mouth. 025 Discontinued furosemide (LASIX) 40 mg tablet Take 1 tablet (40 mg total) by mouth 1 (one) time each day. In the evening; lasix 80 mg in the am 025 Discontinued(Re order) isosorbide mononitrate (IMDUR) 30 mg 24 hr tablet Take 1 tablet (30 mg total) by mouth 1 (one) time each day. 06/19/20 24 025 Discontinued Active Problems Problem Noted Date Diagnosed Date DM (diabetes mellitus), type 2 with peripheral vascular complications 12/05/2024 MAGDA (iron deficiency anemia) 04/06/2023 Requires supplemental oxygen 04/06/2023 CHF (congestive heart failure) 01/06/2023 Obstructive sleep apnea syndrome 05/09/2022 Adrenal mass 03/24/2022 Claudication of both lower extremities Sleep related hypoxia 08/17/2021 Overview (07/12/2024): On oxygen at nighttime Asthma-COPD overlap syndrome 08/17/2021 Overview (11/29/2024): S/p PFT with severe diffusion impairement and that accounts for most of his SOB. The chest CT did not showed any significant lung disease. Microscopic hematuria 12/25/2020 Overview (11/29/2024): Normal renal ultrasound, referred to urology for further work-up Condyloma acuminata 11/18/2020 Overview (11/29/2024): Condyloma acuminata 11/19 penis PAD (peripheral artery disease) 02/21/2020 Overview (11/29/2024): With LLE angioplasty 01/2020 Polycythemia 06/04/2018 Anxiety 08/01/2017 Microalbuminuria 04/14/2017 Depression 01/31/2017 HTN (hypertension), benign 01/31/2017 Hyperlipidemia 01/31/2017 Resolved Problems Problem Noted Date Diagnosed Date Resolved Date Type 2 diabetes mellitus 01/31/201703/2025 Encounters Date Type Department Care Team Description 12/10/2024 Telephone Adult [address] [phone] Tonya Patel RN 12/06/[address] [phone] Lea Alxe PA VNA CALL 12/05/2024 10:30 AM EST Office Visit [address] [phone] Zari Henry MD Acute on chronic right-sided congestive heart failure (CMS/HCC) (Primary Dx); HTN (hypertension), benign; Other hyperlipidemia; DM (diabetes mellitus), type 2 with peripheral vascular complications (CMS/HCC); Pneumonia of right lung due to infectious organism, unspecified part of lung 12/05/[address] [phone] Zari Henry MD Forms/questionnaires 12/03/[address] [phone] Zari Henry MD vna 12/01/2024 5:01 AM EST - 12/01/2024 9:[address] [facility] Emergency [address] [place] [phone] Rikki Acosta MD Edema, unspecified type (Primary Dx); Muscular deconditioning; Muscle cramp Discharge Disposition: Home or Self Care 11/28/2024 Telephone Adult [address] [phone] Zari Henry MD vna 11/28/2024 Telephone Adult [address] [phone] Zari Henry MD Hospital Follow-up (Patient to be discharged right now but can't go until his has his follow up scheduled) 11/12/2024 Telephone [facility] Hematology Oncology [address] [place] [phone] Moe Fernandes MD 09/20/2024 Telephone Endocrinology - [place] [address] [place] [phone] Lea lAex PA PRIOR AUTHORIZATION 09/20/2024 Telephone [facility] Hematology Oncology [address] [place] [phone] Moe Fernandes MD 09/19/2024 Telephone [facility] Cardiology [address] [place] [phone] Nadege Garcia NP No Call No Show (Letter sent.) 09/12/2024 Telephone Endocrinology - [address] [phone] Lea Alex PA insurance approval from Last 3 Months Immunizations Name Administration Dates Next Due Influenza Quadravalent, MDCK , 0.5ml, preservative free (Flucelvax) 6mo and older 07/16/2021,07/23/2020,10/08/2019,2017 Influenza Quadravalent, MDCK , 0.5ml, with preservative (Flucelvax) 6mo and older 07/04/2017 Influenza Quadrivalent, 0.5m l, preservative free (Fluarix; FluLaval; Fluzone) ages 6mo and older (Afluria) 3yo and older 07/22/2022 Influenza trivalent, 0.5mL, preservative free (Fluarix; FluLaval; Fluzone) ages 6mo and older (Afluria) 3 years and older 07/16/2024 Pneumococcal conjugate 13 va lent (Prevnar 13, PCV13) 2mo and older 10/08/2019 Td Tetanus diptheria (Tdvax) 7yo and older 05/17/2019 Surgical History Surgery Date Site/Laterality Comments UPPER GASTROINTESTINAL ENDOSCOPY 08/07/2018 : Mid esophageal biopsies: fungal esophagitis. Medical History Medical History Date Comments Depression 01/31/2017 DX:Depression HTN (hypertension), benign 01/31/2017 DX:HT N (hypertension), benign Hyperlipidemia LDL goal <100 01/31/2017 DX: Hyperlipidemia LDL goal <100 History of tachycardia 04/14/2017 DX:Histor y of tachycardia DM (diabetes mellitus), type 2 with renal complications ([facility]) 01/31/2017 DX:DM (diabetes mellitus ), type 2 with renal complications ([facility]) Microalbuminuria 04/14/2017 DX:Microalbumin uria Polycythemia 06/04/2018 DX:Polycythemia Condyloma acuminata 11/18/2020 DX:Condyloma acuminata; COMMENT: Condyloma acuminata 11/19 penis YARELIS (obstructive sleep apnea) 05/09/2022 DX :YARELIS (obstructive sleep apnea) CHF (congestive heart failur e) ([facility]) 01/06/2023 DX:CHF (congestive heart beckie lure) ([facility]) DM (diabetes mellitus), type 2 with peripheral vascular complications ([facility]) 12/05/2024 Family History Medical History Relation Name Comments Colon cancer Neg Hx Social History Tobacco Use Types Packs/Day Years Used Date Smoking Tobacco: Light Smoker Cigarettes 0.5 34.1 Started: 10/30/1990 Smokeless Tobacco: Never Tobacco Cessation:Ready to Q uit: Not Asked; Counseling Given: Not Answered Alcohol Use Standard Drinks/Week Comments Yes 0 (1 standard drink = 0.6 oz pur e alcohol) Sex and Gender Information Value Date Recorded Sex Assigned at Not on file Legal Sex Male 4:34 AM EST Gender Identity Not on file Sexual Orientation Not on file Obstetrics History Last Filed Vital Signs Vital Sign Reading Time Taken Comments Blood Pressure 152/62 12/05/2024 10:19 AM EST Pulse 82 12/05/2024 10:19 AM EST Temperature 36.4 ??C (97.5 ??F) 12/05/2024 10:[address] Respiratory Rate 14 12/05/2024 10:19 AM EST Oxygen Saturation 94% 12/05/2024 10:19 AM EST Inhaled Oxygen Concentration - - Weight 69 kg (152 lb 1.6 oz) 12/05/2024 10:19 AM EST Height 165.1 cm (5' 5 ) 12/05/2024 10:19 AM EST Body Mass Index 25.31 12/05/2024 10:19 AM EST Plan of Treatment Upcoming Encounters Date Type Department Care Team (Late st Contact Info) Description 12/13/2024 1:00 PM EST Office Visit Adult Medicine [facility] [place] [address] [place] [address] Zari Henry MD [address] [place], [place] 01/17/2025 4:20 PM EDT Office Visit Endocrinology - [address] [phone] Lea Alex PA [address] [place], [place] 03/07/2025 2:00 PM EDT Office Visit Pulmonolgy - [place] [address] [phone] Nisa Machado MD [address] [phone] 06/10/2025 12:00 PM EDT Office Visit Nephrology - [address] [phone] Jong Hall MD [address] [phone] Health Maintenance Due Date Last Done Comments Diabetes: Annual Foot Exam 1984 Diabetes: Annual Retina Eye Exam 1984 Hepatitis B Vaccines (1 of 3 - 19+ 3-dose series) 1993 DTaP,Tdap,and Td Vaccines (2 - Td or Tdap) 06/14/2019 05/17/2019 Pneumococcal Vaccine: 50+ Years (2 of 2 - PPSV23) 12/03/2019 10/08/2019 Pneumococcal Vaccine: Pediatrics (0 to 5 Years) and At-Risk Patients (6 to 64 Years) (2 of 2 - PPSV23) 12/03/2019 10/08/2019 Cholesterol Screening (Lipid Panel) 10/07/2022 [...] 05/03/2024 Diabetes: Annual GFR (Glomerular Filtration Rate) 12/01/2025 12/01/2024, 11/08/2024, 11/08/2024, Additional history exists Hypertension/CHF/CAD Annual BMP Blood Test 12/01/2025 12/01/2024, 11/08/2024, 11/08/2024, Additional history exists Influenza Vaccine Completed 07/16/2024, , 07/16/2021, Additional history exists HIB Vaccines Aged Out No longer eligi ble based on patient's age to complete this topic HPV Vaccines Aged Out No longer eligi ble based on patient's age to complete this topic Hepatitis A Vaccines Aged Out No long er eligible based on patient's age to complete this topic IPV Vaccines Aged Out No longer eligi ble based on patient's age to complete this topic MMR Vaccines Aged Out No longer eligi ble based on patient's age to complete this topic Meningococcal ACWY Vaccine Aged Out N o longer eligible based on patient's age to complete this topic Meningococcal B Vacine Aged Out No lo nger eligible based on patient's age to complete this topic RSV Immunization Patients Under 20 months Aged Out No longer eligible based on patient's age to complete this topic Varicella Vaccines Aged Out No longer eligible based on patient's age to complete this topic Procedures Procedure Name Priority Date/Time Associated Diagnosis Comments VAS US DUPLEX LOWER EXT VENOUS BILAT Routine 12/01/2024 8:30 AM EST Edema, unspecified type TROPONIN I HIGH SENSITIVITY STAT 12/01/2024 7:34 AM EST ECG 12-LEAD STAT 12/01/2024 5:18 AM EST XR CHEST 2 VIEWS STAT 12/01/2024 3:05 AM EST ECG 12-LEAD STAT 12/01/2024 2:54 AM EST CREATINE KINASE AND CKMB STAT Add-on 12/01/2024 2:44 AM EST BETA HYDROXYBUTYRATE Add-On 12/01/2024 2:44 AM EST CBC WITH AUTO DIFFERENTIAL STAT 12/01/2024 2:44 AM EST B-TYPE NATRIURETIC PEPTIDE STAT 12/01/2024 2:44 AM EST MAGNESIUM STAT 12/01/2024 2:44 AM EST LIPASE STAT 12/01/2024 2:44 AM EST COMPREHENSIVE METABOLIC PANEL STAT 12/01/2024 2:44 AM EST CBC AND DIFFERENTIAL STAT 12/01/2024 2:44 AM EST TROPONIN I HIGH SENSITIVITY STAT 12/01/2024 2:44 AM EST ECG ANNOTATED 12/01/2024 ECG ANNOTATED 12/01/2024 HEMOGLOBIN A1C Routine 11/08/2024 12:32 PM EST [...] unspecified from Last 3 Months Results * Vascular US duplex lower extremity venous bilateral (12/01/2024 8:30 AM EST) Anatomical Region Laterality Modality Vascular, Abdomen Ultrasound 12/01/2024 9:16 AM EST Impressions 12/01/2024 9:17 AM EST No deep venous thrombosis of either lower extremity. -------- FINAL REPORT -------- Dictated By: Macario Campos Dictated Date: 12/01/2024 09:16 ET Assigned Physician: Macario Campos Reviewed and Electronically Signed By: Macario Campos Signed Date: 12/01/2024 09:17 ET Workstation ID: [id number] Transcribed By: Self Edit Transcribed Date: 12/01/2024 09:16 ET Narrative 12/01/2024 9:17 AM EST PROCEDURE: Bilateral lower extremity deep vein thrombosis study. HISTORY: edema. COMPARISON: None. TECHNIQUE: Grayscale, color Doppler, and spectral Doppler ultrasound evaluation of the deep venous structures of the lower extremities. ??Augmentation and compression maneuvers were performed. FINDINGS: The deep venous structures of the lower extremities demonstrate normal compressibility with normal color and spectral Doppler flow and a normal response to augmentation maneuvers. Procedure Note Macario Campos MD - 12/01/2024 PROCEDURE: Bilateral lower extremity deep vein thrombosis study. HISTORY: edema. COMPARISON: None. TECHNIQUE: Grayscale, color Doppler, and spectral Doppler ultrasoundevaluation of the deep venous structures of the lower extremities.Augmentation and compression maneuvers were performed. FINDINGS: The deep venous structures of the lower extremities demonstrate normalcompressibility with normal color and spectral Doppler flow and a normalresponse to augmentation maneuvers. IMPRESSION: No deep venous thrombosis of either lower extremity. -------- FINAL REPORT -------- Dictated By: Macario Campos Dictated Date: 12/01/2024 09:16 ET Assigned Physician: Macario Campos Reviewed and Electronically Signed By: Macario Campos Signed Date: 12/01/2024 09:17 ET Workstation ID: [id number] Transcribed By: Self Edit Transcribed Date: 12/01/2024 09:16 ET Rikki Acosta MD CV VASCULAR PROCEDURES Final R esult * Troponin I high sensitivity (12/01/2024 7:34 AM EST) Only the most recent of2 resultswithin the time period is included. Pathologist [facility] High Sensitivity Troponin I 18 <=79 ng/L LAB CHEMISTRY METHOD 12/01/2024 8:16 AM EST [facility] Blood Venous blood specimen / Unknown Venipuncture / Unknown 12/01/2024 7:34 AM EST 12/01/2024 7:46 AM EST Narrative [facility] - 12/01/2024 8:16 AM EST High levels of biotin in samples may falsely decrease hsTroponin values. ??Use caution when interpreting hsTroponin results in patients taking biotin who exhibit renal impairment (eGFR <60) or in patients taking more than 20 mg/day of biotin. us Chris Leija MD LAB BLOOD ORDERABLES Final Resu lt [facility] [address] [place] [address], [place] [phone] * ECG 12 lead (12/01/2024 5:18 AM EST) Only the most recent of2 resultswithin the time period is included. Ventricular Rate ECG 83 BPM GEMUSE Atrial Rate 83 BPM GEMUSE P-R Interval 124 ms GEMUSE QRS Duration 92 ms GEMUSE Q-T Interval 370 ms GEMUSE QTc 434 ms GEMUSE P Wave Jenners 48 degrees GEMUSE R Jenners 40 degrees GEMUSE T Jenners 52 degrees GEMUSE ECG Interpretation Normal sinus rhythm When compared with ECG of 01-DEC-2024 02:54, (unconfirmed) No significant change was found Confirmed by CIERA MEDLEY ([id number]) on 12/02/2024 5:14:51 AM GEMUSE 12/01/2024 5:18 AM EST 12/02/2024 5:14 AM EST us Scot Mode Leija MD ECG ORDERABLES Final Result GEMUSE * XR Chest 2 Views (12/01/2024 3:05 AM EST) Anatomical Region Laterality Modality Body Radiographic Magali ging 12/01/2024 9:15 AM EST Impressions 12/01/2024 9:16 AM EST No acute findings. -------- FINAL REPORT -------- Dictated By: Macario Campos Dictated Date: 12/01/2024 09:15 ET Assigned Physician: Macario Campos Reviewed and Electronically Signed By: Macario Campos Signed Date: 12/01/2024 09:16 ET Workstation ID: [id number] Transcribed By: Self Edit Transcribed Date: 12/01/2024 09:15 ET Narrative 12/01/2024 9:16 AM EST PROCEDURE: PA and lateral radiographs of the chest. HISTORY: chest pain. COMPARISON: 04/01/2022. FINDINGS: There are linear markings in the mid lung zones suggesting areas of scarring. ??Lungs otherwise clear. ??Mild atherosclerotic calcifications of the aorta. ??Pleural spaces and pulmonary vasculature are normal. ??Bones appear demineralized. Procedure Note Macario Campos MD - 12/01/2024 PROCEDURE: PA and lateral radiographs of the chest. HISTORY: chest pain. COMPARISON: 04/01/2022. FINDINGS: There are linear markings in the mid lung zones suggesting areas ofscarring. Lungs otherwise clear. Mild atherosclerotic calcifications ofthe aorta. Pleural spaces and pulmonary vasculature are normal. Bonesappear demineralized. IMPRESSION: No acute findings. -------- FINAL REPORT -------- Dictated By: Macario Campos Dictated Date: 12/01/2024 09:15 ET Assigned Physician: Macario Campos Reviewed and Electronically Signed By: Macario Campos Signed Date: 12/01/2024 09:16 ET Workstation ID: [id number] Transcribed By: Self Edit Transcribed Date: 12/01/2024 09:15 ET Chris Leija MD IMG XR PROCEDURES Final Result * Beta hydroxybutyrate (12/01/2024 2:44 AM EST) Pathologist [facility] Beta-Hydroxybu tyrate 1.4 0.2 - 2.8 mg/dL LAB CHEMISTRY METHOD 12/01/2024 8:01 AM EST [facility] Blood Venous blood specimen / Unknown Venipuncture / Unknown 12/01/2024 2:44 AM EST 12/01/2024 3:07 AM EST Rikki Acosta MD LAB BLOOD ORDERABLES Final Res ult [facility] [address] [place] [address], [place] [phone] * (ABNORMAL) CBC auto differential (12/01/2024 2:44 AM EST) Only the most recent of2 resultswithin the time period is included. Pathologist [facility] WBC 18.0(H) 4.8 - 10.8 K/mcL LAB HEMETOLOGY METHOD 12/01/2024 3:12 AM EST [facility] RBC 4.20(L) 4.50 - 5.50 M/mcL LAB HEMETOLOGY METHOD 12/01/2024 3:12 AM [facility] Hemoglobin 10.3(L) 13.5 - 17.5 g/dL LAB HEMETOLOGY METHOD 12/01/2024 3:12 AM [facility] Hematocrit 33.0(L) 42.0 - 54.0 % LAB HEMETOLOGY METHOD 12/01/2024 3:12 AM [facility] MCV 78.6(L) 79.0 - 98.0 FL LAB HEMETOLOGY METHOD 12/01/2024 3:12 AM [facility] MCH 24.5(L) 27.0 - 32.0 pcg LAB HEMETOLOGY METHOD 12/01/2024 3:12 AM [facility] MCHC 31.2(L) 32.0 - 37.0 g/dL LAB HEMETOLOGY METHOD 12/01/2024 3:12 AM [facility] RDW 21.8(H) 11.0 - 15.0 % LAB HEMETOLOGY METHOD 12/01/2024 3:12 AM [facility] Platelets 317 130 - 400 K/mcL LAB HEMETOLOGY METHOD 12/01/2024 3:12 AM [facility] MPV 10.3 7.0 - 11.0 FL LAB HEMETOLOGY METHOD 12/01/2024 3:12 AM [facility] NRBC 0.0 <1.0 % LAB HEMETOLOGY METHOD 12/01/2024 3:12 AM [facility] NRBC Absolute 0.00 <0.10 K/mcL LAB HEMETOLOGY METHOD 12/01/2024 3:12 AM [facility] Neutrophils Relative 94.2 % LAB HEMETOLOGY METHOD 12/01/2024 3:12 AM [facility] Lymphocytes Relative 3.6 % LAB HEMETOLOGY METHOD 12/01/2024 3:12 AM [facility] Monocytes Relative 0.8 % LAB HEMETOLOGY METHOD 12/01/2024 3:12 AM [facility] Eosinophils Relative 0.1 % LAB HEMETOLOGY METHOD 12/01/2024 3:12 AM [facility] Basophils Relative 0.2 % LAB HEMETOLOGY METHOD 12/01/2024 3:12 AM [facility] Immature Granulocytes Relative 1.1 % LAB HEMETOLOGY METHOD 12/01/2024 3:12 AM [facility] Neutrophils Absolute 16.93(H) 1.50 - 7.00 K/mcL LAB HEMETOLOGY METHOD 12/01/2024 3:12 AM [facility] Lymphocytes Absolute 0.64(L) 1.00 - 5.00 K/mcL LAB HEMETOLOGY METHOD 12/01/2024 3:12 AM [facility] Monocytes Absolute 0.15(L) 0.20 - 1.00 K/mcL LAB HEMETOLOGY METHOD 12/01/2024 3:12 AM [facility] Eosinophils Absolute 0.01 0.00 - 0.50 K/mcL LAB HEMETOLOGY METHOD 12/01/2024 3:12 AM [facility] Basophils Absolute 0.03 0.00 - 0.20 K/mcL LAB HEMETOLOGY METHOD 12/01/2024 3:12 AM [facility] Immature Granulocytes Absolute 0.20(H) 0.00 - 0.03 K/mcL LAB HEMETOLOGY METHOD 12/01/2024 3:12 AM [facility] Blood Venous blood specimen / Unknown Venipuncture / Unknown 12/01/2024 2:44 AM EST 12/01/2024 3:07 AM EST us Chris Leija MD LAB BLOOD ORDERABLES Final Resu lt Performing Organization Address [facility]/ZIP Co de Phone Number [facility] [address] [place] [address], * (ABNORMAL) B-type natriuretic peptide (12/01/2024 2:44 AM EST) BNP 300(H) <=100 pcg/mL LAB CHEMISTRY METHOD 12/01/2024 3:38 AM EST [facility] Blood Venous blood specimen / Unknown Venipuncture / Unknown 12/01/2024 2:44 AM EST 12/01/2024 3:07 AM EST us Chris Leija MD LAB BLOOD ORDERABLES Final Resu lt Performing Organization Address [facility]/RUST de Phone Number [facility] [address] [place] [address], * (ABNORMAL) Magnesium (12/01/2024 2:44 AM EST) Magnesium 1.8(L) 1.9 - 2.6 mg/dL LAB CHEMISTRY METHOD 12/01/2024 3:41 AM EST [facility] Blood Venous blood specimen / Unknown Venipuncture / Unknown 12/01/2024 2:44 AM EST 12/01/2024 3:07 AM EST us Chris Leija MD LAB BLOOD ORDERABLES Final Resu lt Performing Organization Address [facility]/ZIP Co de Phone Number [facility] [address] [place] [address], * (ABNORMAL) Lipase (12/01/2024 2:44 AM EST) Lipase 78(H) 13 - 75 unit/L LAB CHEMISTRY METHOD 12/01/2024 3:41 AM EST [facility] Blood Venous blood specimen / Unknown Venipuncture / Unknown 12/01/2024 2:44 AM EST 12/01/2024 3:07 AM EST Chris Leija MD LAB BLOOD ORDERABLES Final Resu lt Performing Organization Address [facility]/ZIP Co de Phone Number [facility] [address] [place] [address], [place] [phone] * CK total and CKMB (12/01/2024 2:44 AM EST) Total CK 176 22 - 269 unit/L LAB CHEMISTRY METHOD 12/01/2024 8:01 AM EST [facility] CK-MB 2.2 1.0 - 3.6 ng/mL LAB CHEMISTRY METHOD 12/01/2024 8:01 AM EST [facility] CK-MB Index 0.0 0.0 - 5.0 LAB CHEMISTRY METHOD 12/01/2024 8:01 AM EST [facility] Blood Venous blood specimen / Unknown Venipuncture / Unknown 12/01/2024 2:44 AM EST 12/01/2024 3:07 AM EST Rikki Acosta MD LAB BLOOD ORDERABLES Final Res ult Performing Organization Address [facility] Co de Phone Number [facility] [address] [place] [address], [place] [phone] * (ABNORMAL) Comprehensive metabolic panel (12/01/2024 2:44 AM EST) Only the most recent of2 resultswithin the time period is included. Sodium 137 133 - 145 mmol/L LAB CHEMISTRY METHOD 12/01/2024 3:56 AM EST [facility] Potassium 4.1 3.5 - 5.5 mmol/L LAB CHEMISTRY METHOD 12/01/2024 3:56 AM [facility] Chloride 106 96 - 110 mmol/L LAB CHEMISTRY METHOD 12/01/2024 3:56 AM [facility] CO2 24 21 - 32 mmol/L LAB CHEMISTRY METHOD 12/01/2024 3:56 AM [facility] Anion Gap 7 3 - 11 LAB CHEMISTRY METHOD 12/01/2024 3:56 AM [facility] Glucose 410(HH) 70 - 100 mg/dL LAB CHEMISTRY METHOD 12/01/2024 3:56 AM [facility] BUN 51(H) 5 - 25 mg/dL LAB CHEMISTRY METHOD 12/01/2024 3:56 AM [facility] Creatinine 2.15(H) 0.70 - 1.30 mg/dL LAB CHEMISTRY METHOD 12/01/2024 3:56 AM [facility] eGFR 37(L) >=60 mL/min/1. 73m2 LAB CHEMISTRY METHOD 12/01/2024 3:56 AM [facility] Comment:Calculation based on the??Chronic Kidney Disease Epidemiology Collaboration (CKD-EPI) equation refit??without adjustment for race. BUN/Creatinine Ratio 23.7 LAB CHEMISTRY METHOD 12/01/2024 3:56 AM [facility] Calcium 8.6 8.5 - 10.5 mg/dL LAB CHEMISTRY METHOD 12/01/2024 3:56 AM [facility] AST (SGOT) 23 10 - 42 unit/L LAB CHEMISTRY METHOD 12/01/2024 3:56 AM [facility] ALT (SGPT) 67(H) 10 - 60 unit/L LAB CHEMISTRY METHOD 12/01/2024 3:56 AM [facility] Alkaline Phosphatase 131(H) 42 - 121 unit/L LAB CHEMISTRY METHOD 12/01/2024 3:56 AM [facility] Total Protein 6.3 6.0 - 8.0 g/dL LAB CHEMISTRY METHOD 12/01/2024 3:56 AM [facility] Albumin 3.0(L) 3.2 - 5.0 g/dL LAB CHEMISTRY METHOD 12/01/2024 3:56 AM EST [facility] Total Bilirubin 0.2 0.0 - 1.4 mg/dL LAB CHEMISTRY METHOD 12/01/2024 3:56 AM EST [facility] Blood Venous blood specimen / Unknown Venipuncture / Unknown 12/01/2024 2:44 AM EST 12/01/2024 3:07 AM EST us Chris Leija MD LAB BLOOD ORDERABLES Final Resu lt [facility] [address] [place] [address], [place] [phone] * ECG-Annotated (12/01/2024) Only the most recent of2 resultswithin the time period is included. us Provider Onbase ECG ORDERABLES Final Result * (ABNORMAL) Hemoglobin A1c (11/08/2024 12:32 PM EST) Hemoglobin A1C 8.4(H) <6.5 % LAB CHEMISTRY METHOD 11/08/2024 6:43 PM EST [facility] Mean Bld Glu Estim. 194 mg/dL LAB CHEMISTRY METHOD 11/08/2024 6:43 PM EST [facility] Blood Venous blood specimen / Unknown Venipuncture / Unknown 11/08/2024 12:32 PM EST 11/08/2024 12:32 PM EST us Lea KARIMI LAB BLOOD ORDERABLES Final Resul t [facility] [address] [place] [address], [place] [phone] * (ABNORMAL) Basic metabolic panel (11/08/2024 12:32 PM EST) Sodium 137 133 - 145 mmol/L LAB CHEMISTRY METHOD 11/09/2024 12:22 AM [facility] Potassium 3.6 3.5 - 5.5 mmol/L LAB CHEMISTRY METHOD 11/09/2024 12:22 AM [facility] Chloride 105 96 - 110 mmol/L LAB CHEMISTRY METHOD 11/09/2024 12:22 AM [facility] CO2 26 21 - 32 mmol/L LAB CHEMISTRY METHOD 11/09/2024 12:22 AM [facility] Anion Gap 6 3 - 11 LAB CHEMISTRY METHOD 11/09/2024 12:22 AM [facility] Glucose 125(H) 70 - 100 mg/dL LAB CHEMISTRY METHOD 11/09/2024 12:22 AM [facility] BUN 26(H) 5 - 25 mg/dL LAB CHEMISTRY METHOD 11/09/2024 12:22 AM [facility] Creatinine 1.42(H) 0.70 - 1.30 mg/dL LAB CHEMISTRY METHOD 11/09/2024 12:22 AM [facility] eGFR 60 >=60 mL/min/1. 73m2 LAB CHEMISTRY METHOD 11/09/2024 12:22 AM [facility] Comment:Calculation based on the??Chronic Kidney Disease Epidemiology Collaboration (CKD-EPI) equation refit??without adjustment for race. BUN/Creatinine Ratio 18.3 LAB CHEMISTRY METHOD 11/09/2024 12:22 AM [facility] Calcium 9.2 8.5 - 10.5 mg/dL LAB CHEMISTRY METHOD 11/09/2024 12:22 AM [facility] Blood Venous blood specimen / Unknown Venipuncture / Unknown 11/08/2024 12:32 PM EST 11/08/2024 12:32 PM EST us Lea KARIMI LAB BLOOD ORDERABLES Final Resul t [facility] [address] [place] [address], [place] [phone] * (ABNORMAL) Iron and TIBC (11/08/2024 12:04 PM EST) Pathologist [facility] Iron 44(L) 50 - 160 mcg/dL LAB CHEMISTRY METHOD 11/08/2024 1:58 PM EST [facility] TIBC 420 250 - 450 mcg/dL LAB CHEMISTRY METHOD 11/08/2024 1:58 PM EST [facility] Iron Saturation 10(L) 20 - 50 % LAB CHEMISTRY METHOD 11/08/2024 1:58 PM EST [facility] Blood Venous blood specimen / Unknown Venipuncture / Unknown 11/08/2024 12:04 PM EST 11/08/2024 1:32 PM EST us Moe Fernandes MD LAB BLOOD ORDERABLES Final R esult [facility] [address] [place] [address], [place] [phone] * Lactate dehydrogenase (11/08/2024 12:04 PM EST) [facility] LDH 226 120 - 246 unit/L LAB CHEMISTRY METHOD 11/08/2024 1:56 PM EST [facility] Blood Venous blood specimen / Unknown Venipuncture / Unknown 11/08/2024 12:04 PM EST 11/08/2024 1:32 PM EST us Moe Fernandes MD LAB BLOOD ORDERABLES Final R esult [facility] [address] [place] [address], [place] [phone] * (ABNORMAL) Ferritin (11/08/2024 12:04 PM EST) [facility] Ferritin 23(L) 26 - 388 ng/mL LAB CHEMISTRY METHOD 11/08/2024 1:58 PM EST [facility] Blood Venous blood specimen / Unknown Venipuncture / Unknown 11/08/2024 12:04 PM EST 11/08/2024 1:32 PM EST us Moe Fernandes MD LAB BLOOD ORDERABLES Final R esult [facility] [address] [place] [address], from Last 3 Months Insurance [facility] [employer] Care Teams [employer] Operator Relationship Specialty Start Date End Date Zari Henry MD [address] [place] [address] PCP - General Internal Medicine 08/17/21
--- OUTSIDE RECORDS SUMMARY | 2024-12-10 15:08 | XMS_ITS | Encounter Summary ---
Author Organization [facility] [place] [address] Care Team Providers Care Ampoule Washing Machine Operator Name Role Phone Zari Henry MD Primary Care Provider Reason for Visit * Reason Comments Leg Swelling Leg Pain Ble pain and swellin g since yesterday on lasix Encounter Details Date Type Department Care Team (Late st Contact Info) Description 12/01/2024 5:01 AM EST - 12/01/2024 9:54 AM EST Emergency [facility] Emergency [address] [place] [phone] Rikki Acosta MD [address] [place] [address] Edema, unspecified type (Primary Dx); Muscular deconditioning; Muscle cramp Discharge Disposition: Home or Self Care Social History Tobacco Use Types Packs/Day Years [...] on file documented as of this encounter Last Filed Vital Signs Vital Sign Reading Time Taken Comments Blood Pressure 157/83 12/01/2024 9:37 AM EST Pulse 91 12/01/2024 9:37 AM EST Temperature 36.8 ??C (98.2 ??F) 12/01/2024 9:37 AM ES T Respiratory Rate 18 12/01/2024 9:37 AM EST Oxygen Saturation 97% 12/01/2024 9:37 AM EST Inhaled Oxygen Concentration - - Weight 65.8 kg (145 lb) 12/01/2024 2:43 AM EST Height 160 cm (5' 3 ) 12/01/2024 2:43 AM EST Body Mass Index 25.69 12/01/2024 2:43 AM EST documented in this encounter Discharge Instructions * Attachments The following attachments cannot be sent through Care Everywhere. * Cramp: Muscle (Lithuanian) * Edema: Leg and Ankle (Lithuanian) documented in this encounter Medications at Time of Discharge amLODIPine (NORVASC) 5 mg tablet Take 2 tablets (10 mg total) by mouth 1 (one) time each day. 30 tablet 10/29/2024 aspirin 81 mg EC tablet Take 1 tablet (81 mg total) by mouth 1 (one) time each day. 12/23/2020 atorvastatin (LIPITOR) 40 mg tablet TAKE 1 TABLET BY MOUTH EVERY DAY 90 tablet 1 11/07/2024 escitalopram (LEXAPRO) 10 mg tablet Take 1 tablet (10 mg total) by mouth 1 (one) time each day. 01/05/2022 gabapentin (NEURONTIN) 300 mg capsule Take 1 capsule (300 mg total) by mouth 3 (three) times a day. 11/02/2021 insulin pump cart,cont inf,BT (Omnipod Dash Pods, Gen 4,) cartridge Inject 1 each under the skin every 3 (three) days. 10 each 3 09/12/2024 isosorbide mononitrate (IMDUR) 30 mg 24 hr tablet TAKE 1 TABLET BY MOUTH EVERY DAY 90 tablet 1 12/09/2024 lisinopril (PRINIVIL,ZESTRIL ) 40 mg tablet Take 1 tablet (40 mg total) by mouth 1 (one) time each day. 11/02/2021 metoprolol succinate (TOPROL-XL) 100 mg 24 hr tablet Take 1 tablet (100 mg total) by mouth 1 (one) time each day. 11/02/2021 nicotine (Nicotrol) 10 mg inhaler INHALE 1 PUFF INTO THE LUNGS NEEDED FOR SMOKING CESSATION EVERY 2 HOURS. 07/16/2021 omeprazole (PriLOSEC) [address] capsule Take 1 capsule (40 mg total) by mouth 1 (one) time each day. 08/17/2021 oxyCODONE-acetami nophen (PERCOCET) 5-325 mg per tabletIndications :Muscle cramp Take 1 tablet by mouth every 6 (six) hours if needed for severe pain for up to 15 doses. Max Daily Amount: 4 tablets 15 tablet 12/01/2024 sucralfate (CARAFATE) 1 gram tablet Take 1 Tablet by mouth 4 times daily. 05/15/2024 tadalafiL (CIALIS) 20 mg tablet Take 1 tablet (20 mg total) by mouth. 06/08/2020 Ventolin HFA 90 mcg/actuation inhaler INHALE 2 PUFFS INTO THE LUNGS EVERY 4 HOURS NEEDED FOR WHEEZING FOR UP TO 30 DAYS. 18 each 2 09/25/2024 furosemide (LASIX) 20 mg tablet Take 1 tablet (20 mg total) by mouth. 5 isosorbide mononitrate (IMDUR) 30 mg 24 hr tablet Take 1 tablet (30 mg total) by mouth 1 (one) time each day. 06/19/2024 5 umeclidinium-cady nteroL (ANORO ELLIPTA) 62.5-25 mcg/actuation inhaler 12/13/2021 5 documented as of this encounter Ordered Prescriptions Prescription Sig Dispense Quantity Refills Last Filled Start Date End Date oxyCODONE-acetamin ophen (PERCOCET) 5-325 mg per tabletIndications: Muscle cramp Take 1 tablet by mouth every 6 (six) hours if needed for severe pain for up to 15 doses. Max Daily Amount: 4 tablets 15 tablet 12/01/2024 documented in this encounter Discharge Disposition Disposition Code Departure Means Destination Comment s Home or Self Care documented in this encounter Progress Notes * Patito Clifford RN - 12/01/2024 9:53 AM EST Pt seen and cleared for d/c by ED provider, d/c instructions reviewed. Rx'd medication education provided, all questions answered. Patient understands he should not take percocet while driving or operating heavy machinery as it can cause drowsiness. Pt seen ambulating out of department with ease. * Cassandra De La Torre RN - 12/01/2024 2:24 AM EST Per ems, pt c/o ble pain and edema since yesterday. Pt denies any injury/trauma. Reports a hx of hfon furosemide * Rikki Acosta MD - 12/01/2024 2:15 AM EST HPI Chief Complaint Patient presents with ??? Leg Swelling ??? Leg Pain Ble pain and swelling since yesterday on lasix Patient complaining of bilateral quadricep pain, right more so than left. Patient states he was just hospitalized at [facility] for pneumonia and congestive heart failure for 8 days. He was discharged to respite yesterday. Since that time when he tries to walk or move his legs he is having severe pain in his quadriceps. No prior history of similar issues. No history of DVT. No injuries. No fevers or chills. No dyspnea. No other precipitating causes of which he is aware. He states his legs are swollen but much less so than when he was hospitalized for CHF. He is takingLasix, 80 mg in the morning and 40 at night. He is on multiple blood pressure medications. He has not taken his morning medications yet. No data recorded Patient History Past Medical History: Diagnosis Date ??? CHF (congestive heart failure) ([facility]) 01/06/2023 DX:CHF (congestive heart failure) ([facility]) ??? Condyloma acuminata 11/18/2020 DX:Condyloma acuminata; COMMENT: Condyloma acuminata 11/19 penis ??? Depression 01/31/2017 DX:Depression ??? DM (diabetes mellitus), type 2 with renal complications (CMS/HCC) 01/31/2017 DX:DM (diabetes mellitus), type 2 with renal complications (HCC) ??? History of tachycardia 04/14/2017 DX:History of tachycardia ??? HTN (hypertension), benign 01/31/2017 DX:HTN (hypertension), benign ? ? Hyperlipidemia LDL goal <100 01/31/2017 DX:Hyperlipidemia LDL goal <100 ??? Microalbuminuria 04/14/2017 DX:Microalbuminuria ??? YARELIS (obstructive sleep apnea) 05/09/2022 DX:YARELIS (obstructive sleep apnea) ??? Polycythemia 06/04/2018 DX:Polycythemia Past Surgical History: Procedure Laterality Date ??? UPPER GASTROINTESTINAL ENDOSCOPY 08/07/2018 : Mid esophageal biopsies: fungal esophagitis. Family History Problem Relation Name Age of Onset ??? Colon cancer Neg Hx Social History Tobacco Use ??? Smoking status: Light Smoker Current packs/day: 0.50 Average packs/day: 0.5 packs/day for 34.1 years (17.0 ttl pk-yrs) Types: Cigarettes Start date: 10/30/1990 ??? Smokeless tobacco: Never Substance Use Topics ??? Alcohol use: Yes ??? Drug use: Yes Types: Marijuana/Cannabis Review of Systems Review of Systems Constitutional: Positive for activity change and fatigue. Respiratory: Negative for cough, chest tightness and shortness of breath. Cardiovascular: Positive for leg swelling. Gastrointestinal: Negative for abdominal pain, nausea and vomiting. Skin: Negative for color change. Physical Exam ED Triage Vitals Temp Heart Rate Resp BP 12/01/24 0243 12/01/2424212/01/24 02412/01/24242 37.1 ??C (98.8 ??F) 86 17 (!) 148/73 SpO2 Temp Source Heart Rate Source Patient Position 12/01/24 0243 12/01/24 0522 12/01/24242 -- 98 % Oral Monitor BP Location FiO2 (%) -- -- Physical Exam Constitutional: Appearance: Normal appearance. HENT: Head: Normocephalic and atraumatic. Cardiovascular: Comments: Regular rate and rhythm without murmurs rubs or gallops Pulmonary: Comments: Clear and equal bilaterally with out wheezes rales or rhonchi. Good air entry Abdominal: General: Abdomen is flat. Palpations: Abdomen is soft. Tenderness: There is no abdominal tenderness. Musculoskeletal: Comments: Bilateral pedal edema up to his knees. 2+ approximately. Right more so than left. Tenderness to the thighs. No erythema warmth or evidence of infection. Skin: General: Skin is warm and dry. Neurological: General: No focal deficit present. Mental Status: He is alert and oriented to person, place, and time. ED Course & MDM ED Course as of 12/01/24 1259 Sun Dec 01, 2024 0731 Workup significant for glucose of 410. Beta hydroxybutyrate added. His creatinine is 2.1 whichis elevated from his baseline of 1.63 weeks ago. Mild elevation of transaminases. Mild hypoalbuminemia. [LD] 0732 Troponin is pending. White count is 18,000 which is elevated from baseline. BNP is 300. Lipaseof 78. Magnesium of 1.8 [LD] 0924 Chest x-ray shows some scarring but no obvious infiltrates or evidence of pulmonary vascular congestion. Ultrasound duplex shows no evidence of deep vein thrombosis. CPK is negative. Pain likelysecondary to deconditioning. He does have a white count of 18,000, however no other evidence of active infection. He was recently hospitalized for pneumonia and that could certainly be from that, although his clear chest x-ray is reassuring. He is eating without difficulty. He would benefit from physical therapy. [LD] ED Course User Index [LD] Rikki Acosta MD Clinical Impressions as of 12/01/24 1259 Edema, unspecified type Muscular deconditioning Muscle cramp Medical Decision Making Patient with bilateral thigh pain. Differential would include DVT with recent hospitalization, myositis, rhabdomyolysis, cramping, deconditioning, electrolyte abnormality, renal failure. Procedures Rikki Acosta MD 12/01/24 0810 Rikki Acosta MD 12/01/24 1259 documented in this encounter Plan of Treatment Upcoming Encounters Date Type Department Care Team (Late st Contact Info) Description 12/13/2024 1:00 PM EST Office Visit Adult Medicine [address] [address] Zari Henry MD [address] [place] [id number] 01/17/2025 4:20 PM EDT Office Visit Endocrinology - [place] [address] [place] [address] Lea Alex PA [address] [place] [address] 03/07/2025 2:00 PM EDT Office Visit Pulmonolgy - [place] [address] [place] [address] Nisa Machado MD [address] [facility] [address] [place] [address] 06/10/2025 12:00 PM EDT Office Visit Nephrology - [place] [address] [place] [address] Jong Hall MD [address] [facility] [address] [place] [address] documented as of this encounter Procedures Procedure Name Priority Date/Time Associated Diagnosis Comments VAS US DUPLEX LOWER EXT VENOUS BILAT Routine 12/01/2024 8:30 AM EST Edema, unspecified type TROPONIN I HIGH SENSITIVITY STAT 12/01/2024 7:34 AM EST ECG 12-LEAD STAT 12/01/2024 5:18 AM EST XR CHEST 2 VIEWS STAT 12/01/2024 3:05 AM EST ECG 12-LEAD STAT 12/01/2024 2:54 AM EST TROPONIN I HIGH SENSITIVITY STAT 12/01/2024 2:44 AM EST BETA HYDROXYBUTYRATE Add-On 12/01/2024 2:44 AM EST CBC WITH AUTO DIFFERENTIAL STAT 12/01/2024 2:44 AM EST CBC AND DIFFERENTIAL STAT 12/01/2024 2:44 AM EST B-TYPE NATRIURETIC PEPTIDE STAT 12/01/2024 2:44 AM EST MAGNESIUM STAT 12/01/2024 2:44 AM EST LIPASE STAT 12/01/2024 2:44 AM EST CREATINE KINASE AND CKMB STAT Add-on 12/01/2024 2:44 AM EST COMPREHENSIVE METABOLIC PANEL STAT 12/01/2024 2:44 AM EST ECG ANNOTATED 12/01/2024 ECG ANNOTATED 12/01/2024 documented in this encounter Results * Vascular US duplex lower extremity [...] Signed Date: 12/01/2024 09:17 ET Workstation ID: [id number] Transcribed By: Self Edit Transcribed Date: 12/01/2024 [...] Signed Date: 12/01/2024 09:17 ET Workstation ID: [id number] Transcribed By: Self Edit Transcribed Date: 12/01/2024 09:16 ET us Rikki Acosta MD CV VASCULAR PROCEDURES Final R esult * Troponin I high sensitivity (12/01/2024 7:34 AM EST) High Sensitivity Troponin I 18 <=79 ng/L LAB CHEMISTRY METHOD 12/01/2024 8:16 AM EST [facility] Blood Venous blood specimen / Unknown Venipuncture / Unknown 12/01/2024 7:34 AM EST 12/01/2024 7:46 AM EST Narrative [facility] - 12/01/2024 8:16 AM EST High levels of biotin in samples may falsely decrease hsTroponin values. ??Use caution when interpreting hsTroponin results in patients taking biotin who exhibit renal impairment (eGFR <60) or in patients taking more than 20 mg/day of biotin. us Chris Leija MD LAB BLOOD ORDERABLES Final Resu lt [facility] [address] [place] [address], [place] [phone] * ECG 12 lead (12/01/2024 5:18 AM EST) Ventricular Rate ECG 83 BPM GEMUSE Atrial Rate 83 BPM GEMUSE P-R Interval 124 ms GEMUSE QRS Duration 92 ms GEMUSE Q-T Interval 370 ms GEMUSE QTc 434 ms GEMUSE P Wave [place] 48 degrees GEMUSE R [place] 40 degrees GEMUSE T [place] 52 degrees GEMUSE ECG Interpretation Normal sinus rhythm When compared with ECG of 01-DEC-2024 02:54, (unconfirmed) No significant change was found Confirmed by CIERA MEDLEY ([id number]) on 12/02/2024 5:14:51 AM GEMUSE 12/01/2024 5:18 AM EST 12/02/2024 5:14 AM EST us Chris Leija MD ECG ORDERABLES Final Result GEMUSE [...] Signed Date: 12/01/2024 09:16 ET Workstation ID: [id number] Transcribed By: Self Edit Transcribed Date: 12/01/2024 [...] Signed Date: 12/01/2024 09:16 ET Workstation ID: [id number] Transcribed By: Self Edit Transcribed Date: 12/01/2024 09:15 ET us Chris Leija MD IMG XR PROCEDURES Final Result * ECG 12 lead (12/01/2024 2:54 AM EST) Ventricular Rate ECG 87 BPM GEMUSE Atrial Rate 87 BPM GEMUSE P-R Interval 128 ms GEMUSE QRS Duration 92 ms GEMUSE Q-T Interval 362 ms GEMUSE QTc 435 ms GEMUSE P Wave [place] 64 degrees GEMUSE R [place] 45 degrees GEMUSE T [place] 65 degrees GEMUSE ECG Interpretation Normal sinus rhythm Minimal voltage criteria for LVH, may be normal variant When compared with ECG of 01-APR-2022 12:18, No significant change was found Confirmed by CIERA MEDLEY ([id number]) on 12/02/2024 5:13:53 AM GEMUSE 12/01/2024 2:54 AM EST 12/02/2024 5:13 AM EST us Chris Leija MD ECG ORDERABLES Final Result GEMUSE * CK total and CKMB (12/01/2024 2:44 AM EST) Total CK 176 22 - 269 unit/L LAB CHEMISTRY METHOD 12/01/2024 8:01 AM EST [facility] CK-MB 2.2 1.0 - 3.6 ng/mL LAB CHEMISTRY METHOD 12/01/2024 8:01 AM [facility] CK-MB Index 0.0 0.0 - 5.0 LAB CHEMISTRY METHOD 12/01/2024 8:01 AM [facility] Blood Venous blood specimen / Unknown Venipuncture / Unknown 12/01/2024 2:44 AM EST 12/01/2024 3:07 AM EST us Rikki Acosta MD LAB BLOOD ORDERABLES Final Res ult Performing Organization Address City/[facility]/ZIP Co de Phone Number [facility] [address] [place] [address], [place] [phone] * Beta hydroxybutyrate (12/01/2024 2:44 AM EST) [facility] Beta-Hydroxybu tyrate 1.4 0.2 - 2.8 mg/dL LAB CHEMISTRY METHOD 12/01/2024 8:01 AM EST [facility] Blood Venous blood specimen / Unknown Venipuncture / Unknown 12/01/2024 2:44 AM EST 12/01/2024 3:07 AM EST us Rikki Acosta MD LAB BLOOD ORDERABLES Final Res ult [facility] [address] [place] [address], [place] [phone] * (ABNORMAL) CBC auto differential (12/01/2024 2:44 AM EST) Pathologist [facility] WBC 18.0(H) 4.8 - 10.8 K/[facility] LAB HEMETOLOGY METHOD 12/01/2024 3:12 AM [facility] RBC 4.20(L) [...] MD LAB BLOOD ORDERABLES Final Resu lt [facility] [address] [place] [address], * (ABNORMAL) B-type natriuretic peptide (12/01/2024 2:44 AM EST) BNP 300(H) <=100 pcg/mL LAB CHEMISTRY METHOD 12/01/2024 3:38 AM EST [facility] Blood Venous blood specimen / Unknown Venipuncture / Unknown 12/01/2024 2:44 AM EST 12/01/2024 3:07 AM EST us Chris Leija MD LAB BLOOD ORDERABLES Final Resu lt Performing Organization Address [facility] Co de Phone Number [facility] [address] [place] [address], * (ABNORMAL) Magnesium (12/01/2024 2:44 AM EST) Pathologist [facility] Magnesium 1.8(L) 1.9 - 2.6 mg/dL LAB CHEMISTRY METHOD 12/01/2024 3:41 AM EST [facility] Blood Venous blood specimen / Unknown Venipuncture / Unknown 12/01/2024 2:44 AM EST 12/01/2024 3:07 AM EST us Chris Leija MD LAB BLOOD ORDERABLES Final Resu lt Performing Organization Address [facility]/ZIP Co de Phone Number [facility] [address] [place] [address], * (ABNORMAL) Lipase (12/01/2024 2:44 AM EST) Lipase 78(H) 13 - 75 unit/L LAB CHEMISTRY METHOD 12/01/2024 3:41 AM EST [facility] Blood Venous blood specimen / Unknown Venipuncture / Unknown 12/01/2024 2:44 AM EST 12/01/2024 3:07 AM EST us Chris Leija MD LAB BLOOD ORDERABLES Final Resu lt [facility] [address] [place] [address], [place] [phone] * (ABNORMAL) Comprehensive metabolic panel (12/01/2024 2:44 AM EST) Sodium 137 133 - 145 mmol/L LAB CHEMISTRY METHOD 12/01/2024 3:56 AM EST [facility] Potassium 4.1 3.5 - 5.5 mmol/L LAB CHEMISTRY METHOD 12/01/2024 3:56 AM [facility] Chloride 106 96 - 110 mmol/L LAB CHEMISTRY METHOD 12/01/2024 3:56 AM [facility] CO2 24 21 - 32 mmol/L LAB CHEMISTRY METHOD 12/01/2024 3:56 AM EST [facility] Anion Gap 7 3 - 11 [...] LAB CHEMISTRY METHOD 12/01/2024 3:56 AM EST [facility] AST (SGOT) 23 10 - 42 [...] AM [facility] Total Bilirubin 0.2 0.0 - 1.4 mg/dL LAB CHEMISTRY METHOD 12/01/2024 3:56 AM [facility] Blood Venous blood specimen / Unknown Venipuncture / Unknown 12/01/2024 2:44 AM EST 12/01/2024 3:07 AM EST us Chris Leija MD LAB BLOOD ORDERABLES Final Resu lt [facility] [address] [place] [address], * Troponin I high sensitivity (12/01/2024 2:44 AM EST) High Sensitivity Troponin I 21 <=79 ng/L LAB CHEMISTRY METHOD 12/01/2024 3:46 AM EST [facility] Blood Venous blood specimen / Unknown Venipuncture / Unknown 12/01/2024 2:44 AM EST 12/01/2024 3:07 AM EST Narrative [facility] - 12/01/2024 3:46 AM EST High levels of biotin in samples may falsely decrease hsTroponin values. ??Use caution when interpreting hsTroponin results in patients taking biotin who exhibit renal impairment (eGFR <60) or in patients taking more than 20 mg/day of biotin. us Scot Mode Leija MD LAB BLOOD ORDERABLES Final Resu lt [facility] ([facility] [address] [place] [address], [place] [phone] * ECG-Annotated (12/01/2024) us Provider Onbase MD ECG ORDERABLES Final Result * ECG-Annotated (12/01/2024) us Provider Onbase MD ECG ORDERABLES Final Result documented in this encounter Visit Diagnoses Diagnosis Edema, unspecified type- Primary Muscular deconditioning Muscular wasting and disuse atrophy, not elsewhere classified Muscle cramp Cramp of limb documented in this encounter Administered Medications Inactive Administered Medications - up to 3 most recent administrations Medication Order MAR Action Action Date Dose Rate Site amLODIPine (NORVASC) tablet 10 mg 10 mg, oral, Daily, First dose on 12/01/24 at 0728, For 1 dose Given 12/01/2024 7:56 AM EST 10 mg furosemide (LASIX) tablet 80 mg 80 mg, oral, Once, On 12/01/24 at 0728, For 1 dose Given 12/01/2024 7:55 AM EST 80 mg lisinopriL (PRINIVIL,ZESTRIL) tablet 40 mg 40 mg, oral, Daily, First dose on 12/01/24 at 0728, For 1 dose Given 12/01/2024 7:55 AM EST 40 mg magnesium oxide (MAG-OX) tablet 400 mg 400 mg, oral, Daily, First dose on 12/01/24 at 0734, For 1 dose Given 12/01/2024 7:56 AM EST 400 mg documented in this encounter Active and Recently Administered Medications Times are shown in EST. Scheduled Medication Order 11/29/2024 11/30/2024 12/01/2024 amLODIPine (NORVASC) tablet 10 mg (COMPLETED) 10 mg, oral, Daily, First dose on 12/01/24 at 0728, For 1 dose 0756 (Given - Provid er: Patito Clifford RN) furosemide (LASIX) tablet 80 mg (COMPLETED) 80 mg, oral, Once, On 12/01/24 at 0728, For 1 dose 0755 (Given - Provid er: Patito Clifford RN) lisinopriL (PRINIVIL,ZESTRIL) tablet 40 mg (COMPLETED) 40 mg, oral, Daily, First dose on 12/01/24 at 0728, For 1 dose 0755 (Given - Provid er: Patito Clifford RN) magnesium oxide (MAG-OX) tablet 400 mg (COMPLETED) 400 mg, oral, Daily, First dose on 12/01/24 at 0734, For 1 dose 0756 (Given - Provid er: Patito Clifford RN) documented in this encounter Care Teams Ampoule Washing Machine Operator Relationship Specialty Start Date End Date Zari Henry MD [address] [place] [address] PCP - General Internal Medicine 08/17/21 documented as of this encounter
--- OUTSIDE RECORDS SUMMARY | 2024-12-10 15:08 | XMS_ITS ---
Author Organization [facility] [facility] Address [address] [place] [address] Phone Care Team Providers Care Wine Manager Name Role Phone Zari Henry MD Primary Care Provider Transitional Care Management Status:Ongoing (Active) Start date:12/08/2024 Enrollment date:12/10/2024 Enrollment reason:Identified using hospital discharge data Case Team Name Relationship Phone Andreea Nichole LPN Care Manager(Responsible Staf f) Continued Care and Services Coordination
--- OUTSIDE RECORDS SUMMARY | 2024-12-10 15:08 | XMS_ITS | Clinical Summary ---
Author Organization [facility] Address [address] [address] Phone Care Team Providers Care Eligibility Supervisor Name Role Phone Zari Henry MD Primary Care Provider [phone] Allergies Active Allergy Reactions Criticality Noted Date [...] Care Team (Late st Contact Info) Description 12/11/2024 3:00 PM EST Office Visit [facility] [address] [address] Jong Hall MD [address] [address] Health Maintenance Due Date Last Done Comments Hepatitis B Vaccine (1 of 3 - 19+ 3-dose series) 1993 Pneumococcal Vaccine: Pediat rics (0 to 5 Years) and At-Risk Patients (6 to 64 Years) (2 of 2 - PPSV23 or PCV20) 12/03/2019 10/08/2019 Diabetes: Ophthalmology Exam 12/30/2022 Diabetes: Pedal Pulse Checked 12/30/2022 Diabetes: Sensory Foot Exam 12/30/2022 Diabetes: Visual Foot Exam 12/30/2022 Colorectal Cancer Screening: Annual FOBT 2023 Colorectal Cancer Screening: Colonoscopy 2023 Colorectal Cancer Screening: Sigmoidoscopy 2023 Diabetes: Hemoglobin A1C 02/06/2025 11/08/2024 Influenza Vaccine Completed 07/16/2024, , 07/22/2022, Additional history exists [place] [address] [place] [place] [address] Care Teams Eligibility Supervisor Relationship Specialty Start Date End Date Zari Henry MD [address] [place] [address] PCP - General Internal Medicine 12/09/24
--- OUTSIDE RECORDS SUMMARY | 2024-12-10 15:08 | XMS_ITS | Encounter Summary ---
[facility] Organization [facility] [place] [address] Care Team Providers Care Lead Generation Marketing Manager Name Role Phone Zari Henry MD Primary Care Provider [phone] Reason for Visit * Reason Onset Date Comments VNA CALL 12/06/2024 Encounter Details Date Type Department Care Team (Late st Contact Info) Description 12/06/[address] [facility] [place] [address] [place] [address] Lea Alex PA [address] [place] [address] VNA CALL Social History Tobacco Use Types Packs/Day Years [...] as of this encounter Progress Notes * Christi Morales RN - 12/06/2024 3:35 PM EST Called and spoke with Shelbi RN VNA Pt has been at [facility] and [facility] treated for PNA and pain CHF not addressed Per Shelbi URBINA +SB, increase in weight despite increase in Lasix, elevated BS She sent him to [facility] this am Pt sts his Omni pod meter is not working Advised he would have to call Omni pod and discuss the issue Once patient is discharged please call the office for f/u * Tamera Gonzalez - 12/06/2024 11:52 AM EST VNA CALL Which VNA office is calling? [facility] Full name of caller: Shelbi The caller is A nurse Is the caller at the patients home?: no Reason for call: Patient's VNA nurse is calling to advise Lea that patient's Omnipod is broken. She is asking if we can please prescribe a new Omnipod to [facility]. She states his pump is working, but he has no way to track it. She also states that patient was recently hospitalized in both [facility] & , and was discharged with Lantus, 10 units daily. Shelbi states they do no t have an rx for Lantus. Advised pt was last seen in July. She states she just sent patient to [facility], due to elevated sugar & he has an infection. She thinks it may be best for patient to be seen in office when he is discharged, but in the meantime is concerned about the Omnipod. Shelbi ballard reached at [phone] Was CONTACT Telephone # obtained above?: yes documented in this encounter Plan of Treatment Upcoming Encounters Date Type Department Care Team (Late st Contact Info) Description 12/13/2024 1:00 PM EST Office Visit Adult Medicine [address] [phone] Zari Henry MD [address] [place] [address] 01/17/2025 4:20 PM EDT Office Visit [address] [place] [address] Lea Alex PA [address] [place] [address] 03/07/2025 2:00 PM EDT Office Visit Pulmonolgy - [place] [address] [phone] Nisa Machado MD [address] [address] 06/10/2025 12:00 PM EDT Office Visit [facility] - [facility] [address] [facility] [place] [phone] Jong Hall MD [address] [phone] documented as of this encounter Visit Diagnoses Not on filedocumented in this encounter Care Teams Lead Generation Marketing Manager Relationship Specialty Start Date End Date Zari Henry MD [address] [place] [address] PCP - General Internal Medicine 08/17/21 documented as of this encounter
--- OUTSIDE RECORDS SUMMARY | 2024-12-10 15:08 | XMS_ITS | Encounter Summary ---
Author Organization [facility] [place] [address] Care Team Providers Care Digital Hardware Design Engineer Name Role Phone Zari Henry MD Primary Care Provider [phone] Reason for Visit * Reason Onset Date Comments vna 12/03/2024 Encounter Details Date Type Department Care Team (Late st Contact Info) Description 12/03/2024 Telephone Adult Medicine [facility] [address] [place] [address] Zari Henry MD [address] [place] [address] vna Social History Tobacco Use Types Packs/Day Years [...] as of this encounter Progress Notes * John Pulido, DEION - 12/05/2024 4:07 PM EST patient had an appt 12/[address] Henry Reviewed office note patient on gabapentin for pain she understands * Nga Nunez - 12/03/2024 1:40 PM EST VNA CALL Which VNA office is calling? [facility] Full name of caller: Shelbi The caller is A nurse Is the caller at the patients home?: no Reason for call: Patient was staying A for nursing and was discharged today [facility] treated him sepsis and pneumonemia. PT has fluid overload, pt is lots of pain due to having edema on both legs and has no pain meds. Does caller need an urgent call back? yes Was CONTACT Telephone # obtained above?: yes Fax #: documented in this encounter Plan of Treatment Upcoming Encounters Date Type Department Care Team (Late st Contact Info) Description 12/13/2024 1:00 PM EST Office Visit Adult Medicine [address] [phone] Zari Henry MD [address] [place], [place] 01/17/2025 4:20 PM EDT Office Visit Endocrinology [address] [phone] Lea Alex PA [address] [place] [address] 03/07/2025 2:00 PM EDT Office Visit Pulmonolgy - [place] [address] [phone] Nisa Machado MD [address] [address] 06/10/2025 12:00 PM EDT Office Visit Nephrology - [facility] [place] [address] Jong Hall MD [address] [phone] documented as of this encounter Visit Diagnoses Not on filedocumented in this encounter Care Teams Digital Hardware Design Engineer Relationship Specialty Start Date End Date Zair Henry MD [address] [place] [address] PCP - General Internal Medicine 08/17/21 documented as of this encounter
--- OUTSIDE RECORDS SUMMARY | 2024-12-10 15:08 | XMS_ITS | Encounter Summary ---
Author Organization [facility] [place] [address] Care Team Providers Care Nuclear Process Engineer Name Role Phone Zari Henry MD Primary Care Provider [phone] Encounter Details Date Type Department Care Team (Late st Contact Info) Description 11/12/2024 Telephone [facility] Hematology Oncology [address] [place] [address] Moe Fernandes MD [address] [place] [address] Social History Tobacco Use Types Packs/Day Years [...] 1:00 PM EST Office Visit Adult Medicine [facility] [address] [place] [address] Zari Henry MD [address] [place], [place] 01/17/2025 4:20 PM EDT Office Visit Endocrinology - [address] [phone] Lea Alex PA [address] [place], [place] 03/07/2025 2:00 PM EDT Office Visit Pulmonolgy - [place] [address] [phone] Nisa Machado MD [address] [address] 06/10/2025 12:00 PM EDT Office Visit Nephrology - [facility] [address] [place] [address] Jong Hall MD [address] [phone] documented as of this encounter Visit Diagnoses Not on filedocumented in this encounter Care Teams Nuclear Process Engineer Relationship Specialty Start Date End Date Zari Henry MD [address] [place] [address] PCP - General Internal Medicine 08/17/21 documented as of this encounter
--- OUTSIDE RECORDS SUMMARY | 2024-12-10 15:08 | XMS_ITS | Encounter Summary ---
[facility] [place] [address] Care Team Providers Care Night Baker Name Role Phone Zari Henry MD Primary Care Provider [phone] Reason for Visit * Reason Onset Date Comments Forms/questionnaires 12/05/2024 Encounter Details Date Type Department Care Team (Late st Contact Info) Description 12/05/2024 Telephone Adult Medicine [facility] [address] [place] [address] Zari Henry MD [address] [place] [address] Forms/questionnaires Social History Tobacco Use Types Packs/Day Years [...] as of this encounter Progress Notes * Viktoriya Zimmerman MA - 12/06/2024 8:26 AM EST Pt was last seen on 12/05/2024, form placed in provider's basket. * Reynaldo Lange - 12/05/2024 10:49 AM EST If patient presents with the one of the forms directly below the direct patient with their forms toMedical Records to be completed by [facility]. All [facility] disability forms ONLY All Valve Lapper requests for Worker's Compensation Motor vehicle accident [facility] Elder Care/VNA Physical forms for long-term housing Life insurance FORMS TO BE COMPLETED IN THE PRACTICE: Type of form: Verification of Disability Form Release of information form ( all sections) has been completed and signed. Yes If this form is for the Registry of Motor Vechicles for a handicap placard or plate is the patient go to be: N/A - not a registry form Is the patient still driving? N/A For what medical problem does the patient need this form completed? COPD, CHF, Hypertension, Diabetes Is patients name on the form? Yes Is the patients portion (demographics) of the form completed? Yes Did the patient sign the form? Yes Which provider is form to be completed by? Dr. Henry Patient requesting the form be: Mike Mcconnell [phone] If form is not to be picked up by patient has patient been informed that RELEASE OF INFO form must be signed by them for alternate person to picking machine operator form? Yes Patient has been informed that completion will be in 7-10 business days: Yes documented in this encounter Plan of Treatment Upcoming Encounters Date Type Department Care Team (Late st Contact Info) Description 12/13/2024 1:00 PM EST Office Visit Adult Medicine [address] [phone] Zari Henry MD [address] [place] [address] 01/17/2025 4:20 PM EDT Office Visit Endocrinology [address] [phone] Lea Alex PA [address] [place] [address] 03/07/2025 2:00 PM EDT Office Visit Pulmonolgy - [place] 175 [facility] [address] [place] [address] Nisa Machado MD 175 [facility] [address] [place] [address] 06/10/2025 12:00 PM EDT [facility] [address] [place] [phone] Jong Hall MD 3550 [facility] [address] [place] [address] documented as of this encounter Visit Diagnoses Not on filedocumented in this encounter Care Teams Night Baker Relationship Specialty Start Date End Date Zari Henry MD [address] [place] [address] PCP - General Internal Medicine 08/17/21 documented as of this encounter
--- OUTSIDE RECORDS SUMMARY | 2024-12-10 15:08 | XMS_ITS | Encounter Summary ---
[facility] [place] [address] Care Team Providers Care Associate Teacher Name Role Phone Zari Henry MD Primary Care Provider [phone] Reason for Visit * Reason Onset Date Comments vna 11/28/2024 Encounter Details Date Type Department Care Team (Late st Contact Info) Description 11/28/2024 Telephone Adult Medicine [facility] [address] [place] [address] Zari Henry MD [address] [place] [address] vna Social History Tobacco Use Types Packs/Day [...] of this encounter Progress Notes * John Pulido LPN - 11/29/2024 10:22 AM EST VO given to Erinn * Zari Henry MD - 11/29/2024 5:28 AM EST Ok for VO; needs to keep / appt for signed orders * John Pulido LPN - 11/28/2024 5:00 PM EST [facility] is requesting VO for PT, OT and nursing. Please review and advise. Thank you Please send response to nurse triage pool [facility] 07/30/24 Hospital FU 12/05/24 * Carrillo Delgado RN - 11/28/2024 3:27 PM EST Pt has hosp fu already scheduled * Carley Malone - 11/28/2024 3:20 PM EST VNA CALL Which [facility] office is calling? [facility] Full name of caller: Erinn The caller is Intake Is the caller at the patients home?: no Reason for call: Needing primary to sign off on longterm orders and then faxing signed orders Does caller need an urgent call back? no Was CONTACT Telephone # obtained above?: yes Fax #: [phone] Phone- [phone] x1(intake) documented in this encounter Plan of Treatment Upcoming Encounters Date Type Department Care Team (Late st Contact Info) Description 12/13/2024 1:00 PM EST Office Visit Adult Medicine [facility] [address] [place] [phone] Zari Henry MD [address] [place] [address] 01/17/2025 4:20 PM EDT Office Visit Endocrinology - [place] [address] [place] [phone] Lea Alex PA [address] [place] [address] 03/07/2025 2:00 PM EDT Office Visit Pulmonolgy - [place] [address] [phone] Nisa Machado MD [address] [address] 06/10/2025 12:00 PM EDT Office Visit Nephrology - [facility] [address] [place] [address] Jong Hall MD [address] [phone] documented as of this encounter Visit Diagnoses Not on filedocumented in this encounter Care Teams Associate Teacher Relationship Specialty Start Date End Date Zari Henry MD [address] [place] [address] PCP - General Internal Medicine 08/17/21 documented as of this encounter
--- OUTSIDE RECORDS SUMMARY | 2024-12-10 15:08 | XMS_ITS | Encounter Summary ---
Author Organization [facility] Address [address] [place] [address] Care Team Providers Care Bisque Brusher Name Role Phone Zari Henry MD Primary Care Provider [phone] Reason for Visit * Reason Comments Hospital Follow-up [facility] 11/19/2024-11/29 Diabetes Fsbs 267 Hyperlipidemia Encounter Details Date Type Department Care Team (Late st Contact Info) Description 12/05/2024 10:30 AM EST Office Visit Adult Medicine [address] [phone] Zari Henry MD [address] [place] [address] Acute on chronic right-sided congestive heart failure (CMS/HCC) (Primary Dx); HTN (hypertension), benign; Other hyperlipidemia; DM (diabetes mellitus), type 2 with peripheral vascular complications (CMS/HCC); Pneumonia of right lung due to infectious organism, unspecified part of lung Social History Tobacco Use Types Packs/Day Years [...] Mass Index 25.31 12/05/2024 10:19 AM EST documented in this encounter Ordered Prescriptions Prescription Sig Dispense Quantity Refills Last Filled Start Date End Date furosemide (LASIX) 40 mg tablet Take 2 tablets (80 mg total) by mouth 2 (two) times a day. In the evening; lasix 80 mg in the am 180 tablet 1 12/05/2024 documented in this encounter Progress Notes * Zari Henry MD - 12/05/2024 10:30 AM EST Chief Complaint: Chief Complaint Patient presents with Hospital Follow-up [facility] 11/19/2024-11/29/2024 Diabetes Fsbs 267 Hyperlipidemia IDENTIFIER: Ciara Quiroga is a 49 y.o. old male HPI He comes for posthospital evaluation having been hospitalized November 19 - November 29. Medications are reconciled. He has known congestive heart failure, hypertension, COPD, diabetes and peripheral vascular disease. He was negative for flu, COVID and RSV he presented with several days of worsening shortness of breath, was found to have an apparent right sided pneumonia on chest x-ray, white bloodcount was elevated and his sugar was 323, he was felt to be fluid overloaded as well and was started on dual antibiotics as well as diuresis. He was diuresed, the Lantus was started for diabetes control and he was to complete a course of Zithromax and Ceftin. He did also have COPD exacerbation was treated with steroids and updrafts. He was ultimately discharged to resp[facility], he is presently and respite is working with him to help him to find housing. He was seen at the emergency room on December 01 with worsening edema and leg pain.. He was discharged to home with oxycodone and notes that he is still having edema in his legs. He is taking gabapentin for pain control and continues with blood pressure control with Toprol, amlodipine, lisinopril and hydralazine. He is using the insulin for diabetes control and is scheduled upcoming to see endocrine. He denies active shortness of breath or chest discomfort ROS: General: No malaise, significant weight loss or fever Respiratory: As noted Cardiovascular: No chest pain, palpitations, no orthopnea Past Medical History: Patient Active Problem List Diagnosis Date Noted DM (diabetes mellitus), type 2 with peripheral vascular complications ([facility]) 12/05/2024 MAGDA (iron deficiency anemia) 04/06/2023 Requires supplemental oxygen 04/06/2023 CHF (congestive heart failure) ([facility]) 01/06/2023 Obstructive sleep apnea syndrome 05/09/2022 Adrenal mass ([facility]) 03/24/2022 Claudication of both lower extremities ([facility]) 12/27/2021 Sleep related hypoxia 08/17/2021 Asthma-COPD overlap syndrome ([facility]) 08/17/2021 Microscopic hematuria 12/25/2020 Condyloma acuminata 11/18/2020 PAD (peripheral artery disease) ([facility]) 02/21/2020 Polycythemia 06/04/2018 Anxiety 08/01/2017 Microalbuminuria 04/14/2017 Depression 01/31/2017 HTN (hypertension), benign 01/31/2017 Hyperlipidemia 01/31/2017 Surgical History: Past Surgical History: Procedure Laterality Date UPPER GASTROINTESTINAL ENDOSCOPY 08/07/2018 : Mid esophageal biopsies: fungal esophagitis. Family History: Family History Problem Relation Name Age of Onset Colon cancer Neg Hx Social History: Social History Tobacco Use Smoking status: Light Smoker Current packs/day: 0.50 Average packs/day: 0.5 packs/day for 34.1 years (17.0 ttl pk-yrs) Types: Cigarettes Start date: 10/30/1990 Smokeless tobacco: Never Substance Use Topics Alcohol use: Yes Allergies: Dulaglutide and Metformin Medications: Outpatient Medications Marked as Taking for the 12/05/24 encounter (Office Visit) with Zari Henry MD Medication Sig Dispense Refill amLODIPine (NORVASC) 5 mg tablet Take 2 tablets (10 mg total) by mouth 1 (one) time each day. 30 tablet 0 aspirin 81 mg EC tablet Take 1 tablet (81 mg total) by mouth 1 (one) time each day. atorvastatin (LIPITOR) 40 mg tablet TAKE 1 TABLET BY MOUTH EVERY DAY 90 tablet 1 escitalopram (LEXAPRO) 10 mg tablet Take 1 tablet (10 mg total) by mouth 1 (one) time each day. furosemide (LASIX) 40 mg tablet Take 2 tablets (80 mg total) by mouth 2 (two) times a day. In the evening; lasix 80 mg in the am 180 tablet 1 gabapentin (NEURONTIN) 300 mg capsule Take 1 capsule (300 mg total) by mouth 3 (three) times a day. insulin pump cart,cont inf,BT (Omnipod Dash Pods, Gen 4,) cartridge Inject 1 each under the skin every 3 (three) days. 10 each 3 lisinopril (PRINIVIL,ZESTRIL) 40 mg tablet Take 1 tablet (40 mg total) by mouth 1 (one) time each day. metoprolol succinate (TOPROL-XL) 100 mg 24 hr tablet Take 1 tablet (100 mg total) by mouth 1 (one) time each day. omeprazole (PriLOSEC) [address] capsule Take 1 capsule (40 mg total) by mouth 1 (one) time each day. oxyCODONE-acetaminophen (PERCOCET) 5-325 mg per tablet Take 1 tablet by mouth every 6 (six) hours if needed for severe pain for up to 15 doses. Max Daily Amount: 4 tablets 15 tablet 0 sucralfate (CARAFATE) 1 gram tablet Take 1 Tablet by mouth 4 times daily. tadalafiL (CIALIS) 20 mg tablet Take 1 tablet (20 mg total) by mouth. Ventolin HFA 90 mcg/actuation inhaler INHALE 2 PUFFS INTO THE LUNGS EVERY 4 HOURS NEEDED FOR WHEEZING FOR UP TO 30 DAYS. 18 each 2 [DISCONTINUED] furosemide (LASIX) 20 mg tablet Take 1 tablet (20 mg total) by mouth. [DISCONTINUED] umeclidinium-vilanteroL (ANORO ELLIPTA) 62.5-25 mcg/actuation inhaler Medication Discontinued/Reordered: Medications Discontinued During This Encounter Medication Reason umeclidinium-vilanteroL (ANORO ELLIPTA) 62.5-25 mcg/actuation inhaler furosemide (LASIX) 20 mg tablet furosemide (LASIX) 40 mg tablet Reorder Vitals: Blood pressure (!) 152/62, pulse 82, temperature 36.4 ??C (97.5 ??F), temperature source Temporal, resp. rate 14, height 1.651 m (65 ), weight 69 kg (152 lb 1.6 oz), SpO2 94%. Body mass index is 25.31 kg/m??.Plan is deferred until next visit Physical Exam: General: patient is in no acute distress. Neck supple without adenopathy, no thyromegaly. Lungs clear with auscultation. Heart: regular S1S2 without murmur, rub or gallop. Extremities without cyanosis, clubbing; has 1-2+ edema. Labs: Hospital admission and discharge notes, ER notes reviewed, most recent chest x- ray from the ER showed no presence of pneumonia Impression: 1. Acute on chronic right-sided congestive heart failure (CMS/HCC) 2. HTN (hypertension), benign 3. Other hyperlipidemia 4. DM (diabetes mellitus), type 2 with peripheral vascular complications (CMS/HCC) 5. Pneumonia of right lung due to infectious organism, unspecified part of lung Assessment and Plan: He will increase Lasix to 80 mg twice daily given his presence of edema, he was adequately treated for the pneumonia, is not having ongoing respiratory symptoms and most recent chest x-ray did not show any pneumonia. He is presently living in [facility] and looking for housing, last glycohemoglobin was 8.4 and he will be continuing on Lantus to help with diabetes control and see endocrine. He is aske d to return in 1 week for repeat evaluation, blood pressure is mildly elevated today and to recheckon the edema. He will continue with his inhalers and Advair for COPD. He will use gabapentin for pain, Roxicodone is not refilled. documented in this encounter Plan of Treatment Upcoming Encounters Date Type Department Care Team (Late st Contact Info) Description 12/13/2024 1:00 PM EST Office Visit Adult Medicine [facility] - [address] [phone] Zari Henry MD [address] [place], [place] 01/17/2025 4:20 PM EDT Office Visit Endocrinology - [address] [phone] Lea Alex PA [address] [place], [place] 03/07/2025 2:00 PM EDT Office Visit Pulmonolgy - [place] [address] [phone] Nisa Machado MD [address] [address] 06/10/2025 12:00 PM EDT Office Visit Nephrology - [address] [phone] Jong Hall MD 3550 [facility] [address] [place] [phone] documented as of this encounter Visit Diagnoses Diagnosis Acute on chronic right-sided congestive heart failure (CMS/HCC)- Primary HTN (hypertension), benign Essential hypertension, benign Other hyperlipidemia DM (diabetes mellitus), type 2 with peripheral vascular complications (CMS/HCC) Type II or unspecified type diabetes mellitus with peripheral circulatory disorders, not stated as uncontrolled Pneumonia of right lung due to infectious organism, unspecified part of lung documented in this encounter Discontinued Medications Medication Sig Discontinue Reason Start Date End Da te umeclidinium-vilanteroL (ANORO ELLIPTA) 62.5-25 mcg/actuation inhaler 12/13/2021 12/05/2024 furosemide (LASIX) 20 mg tablet Take 1 tablet (20 mg total) by mouth. 12/05/2024 furosemide (LASIX) 40 mg tablet Take 1 tablet (40 mg total) by mouth 1 (one) time each day. In the evening; lasix 80 mg in the am Reorder 12/05/2024 documented as of this encounter Historical Medications * This list may reflect changes made after this encounter. hydrALAZINE (APRESOLINE) 100 mg tablet Take 1 tablet (100 mg total) by mouth 3 (three) times a day. Advair Diskus 250-50 mcg/dose diskus inhaler Inhale 1 puff by mouth 2 (two) times a day. furosemide (LASIX) 40 mg tablet Take 1 tablet (40 mg total) by mouth 1 (one) time each day. In the evening; lasix 80 mg in the am 12/05/2024 added in this encounter Care Teams Bisque Brusher Relationship Specialty Start Date End Date Zari Henry MD [address] [place] [address] PCP - General Internal Medicine 08/17/21 documented as of this encounter
--- OUTSIDE RECORDS SUMMARY | 2024-12-10 15:08 | XMS_ITS | Encounter Summary ---
Author Organization [facility] [place] [address] Care Team Providers Care Cushion Installer Name Role Phone Zari Henry MD Primary Care Provider [phone] Reason for Visit * Reason Onset Date Comments Hospital Follow-up 11/28/2024 Patient to be discharged right now but can't go until his has his follow up scheduled Encounter Details Date Type Department Care Team (Late st Contact Info) Description 11/28/2024 Telephone Adult Medicine [address] [phone] Zari Henry MD [address] [place] [phone] Hospital Follow-up (Patient to be discharged right now but can't go until his has his follow up scheduled) Social History Tobacco Use Types Packs/Day Years [...] as of this encounter Progress Notes * Carrillo Delgado RN - 11/28/2024 3:20 PM EST Called and spoke with [facility] for 2/ with pcp * Erinn Singh - 11/28/2024 2:24 PM EST Cassandra from [facility] states patient is suppose to be discharged right now but can't go until he had his follow up appointment made with our office Hospital/ER follow up appointment needed Hospital patient was treated at: [facility] Was this only an ER visit or was the patient admitted to the hospital? Admitted to the hospital/kept overnight Date of visit if ER visit only: n/a If patient was admitted what was the date of discharge? Today - can't be discharged until they hearfrom our office with an appointment in had Reason/diagnosis for visit or stay: dyspnea When was the patient told to follow up? 7-10 days Was visit or stay related to an injury? If yes, what was the date of injury (DOI)? No If yes, was the injury due to: Not 3rd libertarian related documented in this encounter Plan of Treatment Upcoming Encounters Date Type Department Care Team (Late st Contact Info) Description 12/13/2024 1:00 PM EST Office Visit Adult Medicine [address] [phone] Zari Henry MD 4 [place], [place] 01/17/2025 4:20 PM EDT Office Visit Endocrinology [address] [phone] Lea Alex PA 4 [place], [place] 03/07/2025 2:00 PM EDT Office Visit Pulmonolgy - [place] 175 [facility] [address] [place] [phone] Nisa Machado MD 175 [facility] [address] [place] [address] 06/10/2025 12:00 PM EDT Office Visit Nephrology - [facility] [address] [place] [phone] Jong Hall MD 355 [facility] [address] [place] [phone] documented as of this encounter Visit Diagnoses Not on filedocumented in this encounter Care Teams Cushion Installer Relationship Specialty Start Date End Date Zari Henry MD 4 [place] [address] PCP - General Internal Medicine 08/17/21 documented as of this encounter
[2024-12-10 15:25] LABS: Basophils Percent Auto 0.2 % (0-2); Eosinophils Absolute Auto 0.1 X10*3/uL (0.0-0.4); Eosinophils Percent Auto 1.1 % (0-4); Hematocrit 29.4 % (42.0-52.0); Imm Gran Abs Auto 0.04 X10*3/uL (0.00-0.03); Imm Gran Pct Auto 0.5 % (0.0-0.4); Lymphocytes Percent Auto 12.5 % (20-40); Mean Corpuscular HGB Conc 30.6 g/dl (31.0-36.0); Mean Corpuscular Hemoglobin 24.3 pg (27.0-33.0); Mean Corpuscular Volume 79.5 fL (80.0-98.0); Mean Platelet Volume 10.3 fL (9.4-12.4); Monocytes Absolute Auto 0.8 X10*3/uL (0.1-1.2); Monocytes Percent Auto 9.8 % (2-11); Neutrophils Absolute Auto 6.3 x10*3/uL (2.0-8.3); Neutrophils Percent Auto 75.9 % (45-73); Platelet Count 327 X10*3/uL (160-400); Red Cell Distribution Width 20.3 % (11.0-16.0); White Blood Count 8.3 X10*3/uL (4.8-10.8)
[2024-12-10 15:50] LABS: Anion Gap 16 (12-20); Blood Urea Nitrogen 23 mg/dL (9-16); Calcium 8.8 mg/dL (8.4-10.2); Carbon Dioxide 25 mmol/L (22-29); Chloride 107 mmol/L (96-108); Estimated Glomerular Filt Rate 43; Glucose Random 214 mg/dL (60-115); Potassium 3.9 mmol/L (3.3-5.1); Sodium 144 mmol/L (135-145)
[2024-12-10 16:08] LABS: B Type Natriuretic Peptide 374 pg/mL (<100)
== END 2024-12-10 14:13 | disposition home or self-care (01) ==
LOC: HO.LAB 14:12
PROVIDERS: PCP Internal Medicine; Visit Provider Nurse Practitioner Family
DX: I50.33 Acute on chronic diastolic (congestive) heart failure (principal)
CPT/HCPCS: 36415; 80048; 83880; 85025

== ENCOUNTER 2024-12-20 09:56 | Outpatient (AMB) | payer OTHER, SELFPAY ==
--- NOTE | 2024-12-20 10:21 | A.OFFVIS_ITS ---
Vital Signs 12/20/24 10:22 Height 5 ft 5 in Weight 147 lb 11.355 oz BMI 24.6 BP 160/78 H Blood Pressure Location Lt brachial Position Sitting Pulse 88 Pulse Source Pulse Oximeter Intake Visit Reasons: 2-3wk follow up Allergies dulaglutide [From Trulicity] Allergy (Verified 12/05/24 14:29) Unknown metformin [METFORMIN] Adverse Reaction (Mild, Verified 12/05/24 14:29) DIARRHEA, nausea and vomiting Medication List - Last Reconciled 12/20/24 by OSIEL Miramontes albuterol sulfate 90 mcg/actuation 2 puffs inhalation Q4H PRN amlodipine 10 mg PO DAILY aspirin 81 mg PO DAILY atorvastatin 40 mg PO DAILY escitalopram oxalate 10 mg PO DAILY fluticasone propion-salmeterol 250-50 mcg/dose (Advair Diskus) 1 ea inhalation BID fluticasone propionate 50 mcg/actuation 1 spray intranasal BID hydralazine 100 mg PO TID 30 days insulin glargine (Lantus U-100 Insulin) 15 units (0.15 mL) subcut DAILY insulin lispro 100 units DIRECTED insulin pump cart,auto,BT-cntr (Omnipod 5 G6 Intro Kit (Gen 5) subcutaneous cartridge with controller) magnesium oxide 400 mg PO BIDPC metoprolol succinate ER 100 mg PO DAILY nicotine 21 mg transdermal DAILY omeprazole 40 mg PO DAILY@0630 torsemide 40 mg PO BID trazodone 100 mg PO BEDTIME HPI HPI 2-3wk follow up: Details: Ciara is a 49-year-old male with past medical history of diabetes, hyperlipidemia, hypertension, obstructive sleep apnea with CPAP use, COPD, alcohol abuse, CKD,? heart failure with preserved EF who was last seen in our office 02/20/2024. Since that time I see 7 [facility] discharges - mostly for shortness of breath, acute respiratory failure, Congestive heart failure, pneumonia. His last hospital discharge was 11/29/2024. During that admission he was treated for pneumonia, respiratory failure and fluid overload. He was discharged on Lasix 80 mg daily. On last visit he had signs of fluid overload and his Lasix had just been increased to 80 mg b.i.d.. He then was admitted to [facility] again and diuresed. His Lasix was changed to torsemide. He now presents for follow-up. Today he reports that since his hospital discharge he has been feeling better. He does have some shortness of breath with exertion but he is able to walk further. He still sleeps with his head of the bed elevated. No chest discomfort at rest or with activity. No heart palpitations, lightheadedness, presyncope, syncope, falls. His leg edema has improved and is currently mostly in the lower legs. It had been as high as his mid thighs. He is currently wearing compression stockings. He resides in a medical respite facility that will also help find him housing when his condition is improved. He is not wearing CPAP but is using oxygen at night. He has been checking his home weights daily and finds them stable. Taking meds as directed. He says he is not drinking any alcohol. [facility] Medical History Tobacco use Lactic acidosis Acute bronchospasm Pneumonia CKD (chronic kidney disease) stage 1, GFR 90 ml/min or greater YARELIS (obstructive sleep apnea) Acute on chronic diastolic (congestive) heart failure KELVIN (acute kidney injury) Congestive heart failure Hypertension Chronic heart failure with preserved ejection fraction (HFpEF) Acute respiratory failure with hypoxia Congestive heart failure Depression COPD exacerbation CHF exacerbation Hypoxia Acute respiratory failure Uncontrolled hypertension Acute on chronic anemia Hyperglycemia due to type 2 diabetes mellitus YARELIS (obstructive sleep apnea) Congestive heart failure Anxiety HLD (hyperlipidemia) Diabetes Hypercholesteremia HTN (hypertension) Asthma PAD (peripheral artery disease) Surgical History History of esophagogastroduodenoscopy S/P angiogram of extremity Family History Father Alzheimer disease CAD (coronary artery disease) Social History Household Members: Family Household Members Other:: 4 Housing: Apartment Do you presently have visiting nurse or other home services: No Unable to assess alcohol history related to: Unknown Alcohol intake: current Alcohol intake frequency: a few times a week Alcohol type: hard liquor Comment: pt is independent in room Patient Tobacco Use Status: Current everyday Tobacco user Tobacco use type: Cigarette Cigarette Packs Per Day: 1 Cigarettes Per Day: 10 Years Smoked: 35 e-Cigarette/Vaping Use: Never Used Second Hand Smoke Exposure: Yes Substance Use Type: Marijuana Advance Directives Date on File: 06/21/21 service: No Current occupational status: disabled Review of Systems Const All systems reviewed & are unremarkable except as noted in HPI and below Denies weakness ENT Denies dizziness Card Denies chest pain, Denies chest pain with activity, Denies syncope, Denies rapid heart rate, Denies pedal edema, Denies edema, Reports leg edema, Denies lightheadedness, Denies palpitations, Denies dyspnea, Reports dyspnea on exertion and Denies orthopnea Resp Denies cough, Denies dyspnea and Reports dyspnea on exertion GI Denies hematochezia and Denies change in stool character Musc Details: lower leg edema Denies abnormal gait, Denies muscle cramps, Denies muscle weakness, Denies numbness, Denies radiating pain into limb and Denies tingling Neuro Denies abnormal gait, Denies dizziness, Denies syncope, Denies numbness, Denies tingling and Denies weakness Endo Denies palpitations Physical Exam Vital Signs: Last Vital Signs Pulse 88 12/20/24 10:22 BP 160/78 H 12/20/24 10:22 BMI result Body Mass Index 24.6 Const General: cooperative, healthy appearing and no acute distress Orientation/consciousness: patient oriented x3 Neck Neck: No JVD Resp Effort & Inspection: normal respiratory effort Auscultation: clear to auscultation bilaterally, no rales, no rhonchi and wheezes (few expiratory wheezes seen) Cardio Jugular venous distension: JVD Rate: regular rate Rhythm: regular rhythm Heart sounds: S1 normal heart sound present, S2 normal heart sound present, no gallops, no murmurs and no rubs Neuro General: patient oriented x3 Extrem Other: tight edema to mid calf - bilaterally Psych Appearance: grossly normal Mental Status: mental status grossly normal Speech and movement: Normal speech and movement present Assessment & Plan Assessment & Plan (1) Congestive heart failure: Code(s): I50.9 - Heart failure, unspecified Category: Medical Qualifiers: Heart failure type: diastolic Plan: History of heart failure with preserved EF with recurrent hospital admissions for respiratory failure, Congestive heart failure, KELVIN/CKD. He was recently discharged from [facility] following diuresis and his Lasix was changed to torsemide. Last echocardiogram done 06/08/2024 showing EF 62%, grade 2 diastolic dysfunction, no valve abnormalities. Today he reports NYHA class 2 symptoms. He does have pitting edema in his lower legs, below the knee. He is monitoring home weights and reports them as being stable. Spent time reviewing the signs and symptoms of heart failure. Instructed to take additional torsemide x3 days if his weight goes up over 3 lb or his leg edema is increasing. Reviewed low-salt diet, fluid restriction less than 48 oz daily. Strict compliance of medications is essential. Will have him continue on hydralazine, metoprolol and amlodipine for good blood pressure control. Blood pressure today initially elevated at 160/78 however recheck done by me was 142/72. Cardiology follow-up in 6-8 weeks, sooner if needed for reassessment. If his edema persists will consider stopping or changing amlodipine to alternate agent. (2) YARELIS (obstructive sleep apnea): Code(s): G47.33 - Obstructive sleep apnea (adult) (pediatric) Category: Medical Plan: Tells me that he wears O2 at night. He did not bring his CPAP to the respite location. (3) HTN (hypertension): Code(s): I10 - Essential (primary) hypertension Category: Medical Qualifiers: Hypertension type: primary hypertension Qualified Code(s): I10 - Essential (primary) hypertension Plan: Elevated today. He states he took his medications just prior to the visit. No med changes made. Continue amlodipine, Lasix, hydralazine, metoprolol. (4) Hospital discharge follow-up: Code(s): Z09 - Encounter for follow-up examination after completed treatment for conditions other than malignant neoplasm Category: Medical Plan: Recent [facility] admission for Congestive heart failure. (5) Acute on chronic diastolic (congestive) heart failure: Code(s): I50.33 - Acute on chronic diastolic (congestive) heart failure Category: Medical (6) Edema: Code(s): R60.9 - Edema, unspecified Category: Medical (7) CKD (chronic kidney disease) stage 1, GFR 90 ml/min or greater: Code(s): N18.1 - Chronic kidney disease, stage 1 Category: Medical Plan: He has known CKD and follows with Nephrology. Plan Time spent on chart review, documentation, interview assessment Coding Level of Care Code Est Pt Level 4 (97511) Complex EM visit Add On G2211 Diagnoses Congestive heart failure I50.9 Heart failure type: diastolic YARELIS (obstructive sleep apnea) G47.33 Primary hypertension I10 Hypertension type: primary hypertension Hospital discharge follow-up Z09 Acute on chronic diastolic (congestive) heart failure I50.33 Edema R60.9 CKD (chronic kidney disease) stage 1, GFR 90 ml/min or greater N18.1 Time Spent (min) 30
[2024-12-20 10:22] VITALS: BP 160/78; PULSE 88; BMI 24.6
--- OUTSIDE RECORDS SUMMARY | 2024-12-20 10:39 | XMS_ITS | Encounter Summary ---
[facility] [place] [address] Care Team Providers Care Museum Service Scheduler Name Role Phone Zari Henry MD Primary Care Provider [phone] Reason for Visit * Reason Onset Date Comments vna 11/28/2024 Encounter Details Date Type Department Care Team (Late st Contact Info) Description 11/28/2024 Telephone Adult Medicine [facility] [address] [place] [address] Zari Henry MD [address] [place] [address] vna Social History Tobacco Use Types Packs/Day [...] LPN - 11/28/2024 5:00 PM EST [facility] is requesting VO for PT, OT and nursing. Please review and advise. Thank you Please send response to nurse triage pool [facility] 07/30/24 Hospital FU 12/05/24 * Carrillo Delgado RN - 11/28/2024 3:27 PM EST Pt has hosp fu already scheduled * Carley Malone - 11/28/2024 3:20 PM EST VNA CALL Which [facility] office is calling? aveanna Full name of caller: Erinn The caller is Intake Is the caller at the patients home?: no Reason for call: Needing primary to sign off on usp orders and then faxing signed orders Does caller need an urgent call back? no Was CONTACT Telephone # obtained above?: yes Fax #: [phone] Phone- [phone] x1(intake) documented in this encounter Plan of Treatment Upcoming Encounters Date Type Department Care Team (Late st Contact Info) Description 12/24/2024 10:30 AM EST Office Visit Adult Medicine [facility] [address] [place] [phone] Zari Henry MD [address] [place] [address] 01/17/2025 4:20 PM EDT Office Visit Endocrinology - [place] [address] [place] [address] Lea Alex PA [address] [place] [address] 03/07/2025 2:00 PM EDT Office Visit Pulmonolgy - [place] [address] [phone] Nisa Machado MD [address] [address] 06/10/2025 12:00 PM EDT Office Visit Nephrology - [facility] [address] [place] [address] Jong Hall MD [address] [phone] documented as of this encounter Visit Diagnoses Not on filedocumented in this encounter Care Teams Museum Service Scheduler Relationship Specialty Start Date End Date Zari Henry MD [address] [place] [address] PCP - General Internal Medicine 08/17/21 documented as of this encounter
--- OUTSIDE RECORDS SUMMARY | 2024-12-20 10:39 | XMS_ITS | Encounter Summary ---
Author Organization [facility] [place] [address] Care Team Providers Care Soundscriber Mechanic Name Role Phone Zari Henry MD Primary Care Provider [phone] Reason for Visit * Reason Onset Date Comments vna 12/03/2024 Encounter Details Date Type Department Care Team (Late st Contact Info) Description 12/03/2024 Telephone Adult Medicine [facility] [address] [place] [address] Zari Henry MD [address] [place] [address] vna Social History Tobacco Use Types Packs/Day [...] VNA CALL Which VNA office is calling? [facility] Full name of caller: Shelbi The caller is A nurse Is the caller at the patients home?: no Reason for call: Patient was staying A for nursing and was discharged today [facility] treated him sepsis and pneumonemia. PT has [...] 10:30 AM EST Office Visit Adult Medicine [address] [phone] Zari Henry MD [address] [place] [address] 01/17/2025 4:20 PM EDT Office Visit Endocrinology [address] [phone] Lea Alex PA [address] [place] [address] 03/07/2025 2:00 PM EDT Office Visit Pulmonolgy - [place] [address] [phone] Nisa Machado MD [address] [address] 06/10/2025 12:00 PM EDT [facility] [address] [facility] [place] [place] [address] Jong Hall MD [address] [phone] documented as of this encounter Visit Diagnoses Not on filedocumented in this encounter Care Teams Soundscriber Mechanic Relationship Specialty Start Date End Date Zari Henry MD [address] [place] [address] PCP - General Internal Medicine 08/17/21 documented as of this encounter
--- OUTSIDE RECORDS SUMMARY | 2024-12-20 10:39 | XMS_ITS | Encounter Summary ---
Author Organization [facility] [place] [address] Care Team Providers Care Business Management Manager Name Role Phone Zari Henry MD Primary Care Provider [phone] Reason for Visit * Reason Onset Date Comments Hospital Follow-up 12/17/2024 Encounter Details Date Type Department Care Team (Late st Contact Info) Description 12/17/2024 Telephone Adult Medicine [address] [phone] John Pulido LPN Hospital Follow-up Social History Tobacco Use Types Packs/Day Years [...] Progress Notes * Carrillo Delgado RN - 12/19/2024 11:41 AM EST Called pt rescheduled for 12/24 * Nga Nunez - 12/19/2024 11:28 AM EST Patient is calling looking to see if his appt could be for 9 or after 2 due to PT having to wait for his meal on wheel to be delivered. Please advise * Tonya Patel RN - 12/17/2024 10:39 AM EST An appointment was made for him to be seen in the office on 12/20/24 at 10:[address] Henry and he is in agreement with this plan. Pt tested positive for Coronavirus on 12/12/24 but was not Covid 19. * John Pulido LPN - 12/17/2024 10:07 AM EST VO given to January Please make a hospital follow up * Zari Henry MD - 12/17/2024 9:21 AM EST Ok for VO; needs appt * Jhon Pulido LPN - 12/17/2024 8:55 AM EST Mare GORDON called [facility] is requesting VO for PT, OT and nursing. Please review and advise. Thank you Please send response to nurse triage [facility] Patient went back to the hospital no showed her appt 12/13/24 was just discharged last night Please book a hospital follow up documented in this encounter Plan of Treatment Upcoming Encounters Date Type Department Care Team (Late st Contact Info) Description 12/24/2024 10:30 AM EST Office Visit [address] [phone] Zari Henry MD [address] [place] [address] 01/17/2025 4:20 PM EDT Office Visit Endocrinology - [place] [address] [place] [address] Lea Alex PA [address] [place] [address] 03/07/2025 2:00 PM EDT Office Visit Pulmonolgy - [place] [address] [phone] Nisa Machado MD [address] [address] 06/10/2025 12:00 PM EDT Office Visit Nephrology - [facility] [address] [place] [address] Jong Hall MD [address] [phone] documented as of this encounter Visit Diagnoses Not on filedocumented in this encounter Care Teams Business Management Manager Relationship Specialty Start Date End Date Zari Henry MD [address] [place] [address] PCP - General Internal Medicine 08/17/21 documented as of this encounter
--- OUTSIDE RECORDS SUMMARY | 2024-12-20 10:39 | XMS_ITS | Encounter Summary ---
[facility] [place] [address] Care Team Providers Care Playground Official Name Role Phone Zari Henry MD Primary Care Provider [phone] Reason for Visit * Reason Comments Leg Swelling Leg Pain Ble pain and swellin g since yesterday on lasix Encounter Details Date Type Department Care Team (Late st Contact Info) Description 12/01/2024 5:01 AM EST - 12/01/2024 9:54 AM EST Emergency [facility] Emergency [address] [place] [phone] Rikki Acosta MD [address] [place] [address] Edema, unspecified type (Primary Dx); [...] sent through Care Everywhere. * Cramp: Muscle (Jordanian) * Edema: Leg and Ankle (Jordanian) documented in this encounter Medications at Time [...] Patient states he was just hospitalized at [facility] for pneumonia and congestive heart failure for [...] Diagnosis Date ??? CHF (congestive heart failure) ([facility]) 01/06/2023 DX:CHF (congestive heart failure) ([facility]) ??? Condyloma acuminata 11/18/2020 DX:Condyloma acuminata; COMMENT: [...] AM EST Office Visit Adult Medicine [address] [phone] Zari Henry MD [address] [place] [address] 01/17/2025 4:20 PM EDT Office Visit Endocrinology - [place] [address] [place] [address] Lea Alex PA [address] [place] [address] 03/07/2025 2:00 PM EDT Office Visit Pulmonolgy - [place] [address] [place] [address] Nisa Machado MD 175 [facility] [address] [place] [address] 06/10/2025 12:00 PM EDT Office Visit Nephrology - [place] [address] [place] [address] Jong Hall MD [address] [facility] [address] [place] [address] documented as of this encounter Procedures Procedure [...] Signed Date: 12/01/2024 09:17 ET Workstation ID: [id number] Transcribed By: Self Edit Transcribed Date: 12/01/2024 [...] Signed Date: 12/01/2024 09:17 ET Workstation ID: [id number] Transcribed By: Self Edit Transcribed Date: 12/01/2024 09:16 ET us Rikki Acosta MD CV VASCULAR PROCEDURES Final R esult * Troponin I high sensitivity (12/01/2024 7:34 AM EST) High Sensitivity Troponin I 18 <=79 ng/L LAB CHEMISTRY METHOD 12/01/2024 8:16 AM EST [facility] Blood Venous blood specimen / Unknown Venipuncture / Unknown 12/01/2024 7:34 AM EST 12/01/2024 7:46 AM EST Narrative [facility] - 12/01/2024 8:16 AM EST High levels of biotin in samples may falsely decrease hsTroponin values. ??Use caution when interpreting hsTroponin results in patients taking biotin who exhibit renal impairment (eGFR <60) or in patients taking more than 20 mg/day of biotin. us Chris Leija MD LAB BLOOD ORDERABLES Final Resu lt [facility] [address] [place] [address], [place] [phone] * ECG 12 lead (12/01/2024 5:18 AM EST) Ventricular Rate ECG 83 BPM GEMUSE Atrial Rate 83 BPM GEMUSE P-R Interval 124 ms GEMUSE QRS Duration 92 ms GEMUSE Q-T Interval 370 ms GEMUSE QTc 434 ms GEMUSE P Wave Pierz 48 degrees GEMUSE R Pierz 40 degrees GEMUSE T Pierz 52 degrees GEMUSE ECG Interpretation Normal sinus [...] Signed Date: 12/01/2024 09:16 ET Workstation ID: [id number] Transcribed By: Self Edit Transcribed Date: 12/01/2024 [...] Signed Date: 12/01/2024 09:16 ET Workstation ID: [id number] Transcribed By: Self Edit Transcribed Date: 12/01/2024 09:15 ET us Chris Leija MD IMG XR PROCEDURES Final Result * ECG 12 lead (12/01/2024 2:54 AM EST) Ventricular Rate ECG 87 BPM GEMUSE Atrial Rate 87 BPM GEMUSE P-R Interval 128 ms GEMUSE QRS Duration 92 ms GEMUSE Q-T Interval 362 ms GEMUSE QTc 435 ms GEMUSE P Wave Pierz 64 degrees GEMUSE R Pierz 45 degrees GEMUSE T Pierz 65 degrees GEMUSE ECG Interpretation Normal sinus [...] LAB CHEMISTRY METHOD 12/01/2024 8:01 AM EST [facility] CK-MB 2.2 1.0 - 3.6 ng/mL LAB CHEMISTRY METHOD 12/01/2024 8:[address] [facility] CK-MB Index 0.0 0.0 - 5.0 LAB CHEMISTRY METHOD 12/01/2024 8:[address] [facility] Blood Venous blood specimen / Unknown Venipuncture / Unknown 12/01/2024 2:44 AM EST 12/01/2024 3:07 AM EST us Rikki Acosta MD LAB BLOOD ORDERABLES Final Res ult Performing Organization Address City/[facility]/ZIP Co de Phone Number [facility] [address] [place] [address], [place] [phone] * Beta hydroxybutyrate (12/01/2024 2:44 AM EST) [facility] Beta-Hydroxybu tyrate 1.4 0.2 - 2.8 mg/dL LAB CHEMISTRY METHOD 12/01/2024 8:01 AM EST [facility] Blood Venous blood specimen / Unknown Venipuncture / Unknown 12/01/2024 2:44 AM EST 12/01/2024 3:07 AM EST us Rikki Acosta MD LAB BLOOD ORDERABLES Final Res ult [facility] [address] [place] [address], [place] [phone] * (ABNORMAL) CBC auto differential (12/01/2024 2:44 AM EST) Pathologist [facility] WBC 18.0(H) 4.8 - 10.8 K/[facility] LAB HEMETOLOGY METHOD 12/01/2024 3:[address] [facility] RBC 4.20(L) 4.50 - 5.50 M/mcL LAB HEMETOLOGY METHOD 12/01/2024 3:[address] [facility] Hemoglobin 10.3(L) 13.5 - 17.5 g/dL LAB HEMETOLOGY METHOD 12/01/2024 3:[address] [facility] Hematocrit 33.0(L) 42.0 - 54.0 % LAB HEMETOLOGY METHOD 12/01/2024 3:[address] [facility] MCV 78.6(L) 79.0 - 98.0 FL LAB HEMETOLOGY METHOD 12/01/2024 3:[address] [facility] MCH 24.5(L) 27.0 - 32.0 pcg LAB HEMETOLOGY METHOD 12/01/2024 3:[address] [facility] MCHC 31.2(L) 32.0 - 37.0 g/dL LAB HEMETOLOGY METHOD 12/01/2024 3:[address] [facility] RDW 21.8(H) 11.0 - 15.0 % LAB HEMETOLOGY METHOD 12/01/2024 3:[address] [facility] Platelets 317 130 - 400 K/mcL LAB HEMETOLOGY METHOD 12/01/2024 3:[address] [facility] MPV 10.3 7.0 - 11.0 FL LAB HEMETOLOGY METHOD 12/01/2024 3:[address] [facility] NRBC 0.0 <1.0 % LAB HEMETOLOGY METHOD 12/01/2024 3:[address] [facility] NRBC Absolute 0.00 <0.10 K/mcL LAB HEMETOLOGY METHOD 12/01/2024 3:[address] [facility] Neutrophils Relative 94.2 % LAB HEMETOLOGY METHOD 12/01/2024 3:[address] [facility] Lymphocytes Relative 3.6 % LAB HEMETOLOGY METHOD 12/01/2024 3:[address] [facility] Monocytes Relative 0.8 % LAB HEMETOLOGY METHOD 12/01/2024 3:[address] [facility] Eosinophils Relative 0.1 % LAB HEMETOLOGY METHOD 12/01/2024 3:[address] [facility] Basophils Relative 0.2 % LAB HEMETOLOGY METHOD 12/01/2024 3:[address] [facility] Immature Granulocytes Relative 1.1 % LAB HEMETOLOGY METHOD 12/01/2024 3:[address] [facility] Neutrophils Absolute 16.93(H) 1.50 - 7.00 K/mcL LAB HEMETOLOGY METHOD 12/01/2024 3:[address] [facility] Lymphocytes Absolute 0.64(L) 1.00 - 5.00 K/mcL LAB HEMETOLOGY METHOD 12/01/2024 3:[address] [facility] Monocytes Absolute 0.15(L) 0.20 - 1.00 K/mcL LAB HEMETOLOGY METHOD 12/01/2024 3:[address] [facility] Eosinophils Absolute 0.01 0.00 - 0.50 K/mcL LAB HEMETOLOGY METHOD 12/01/2024 3:[address] [facility] Basophils Absolute 0.03 0.00 - 0.20 K/mcL LAB HEMETOLOGY METHOD 12/01/2024 3:[address] [facility] Immature Granulocytes Absolute 0.20(H) 0.00 - 0.03 K/mcL LAB HEMETOLOGY METHOD 12/01/2024 3:[address] [facility] Blood Venous blood specimen / Unknown Venipuncture / Unknown 12/01/2024 2:44 AM EST 12/01/2024 3:07 AM EST us Chris Leija MD LAB BLOOD ORDERABLES Final Resu lt [facility] [address] [place] [address], * (ABNORMAL) B-type natriuretic peptide (12/01/2024 2:44 AM EST) BNP 300(H) <=100 pcg/mL LAB CHEMISTRY METHOD 12/01/2024 3:38 AM EST [facility] Blood Venous blood specimen / Unknown Venipuncture / Unknown 12/01/2024 2:44 AM EST 12/01/2024 3:07 AM EST us Chris Leija MD LAB BLOOD ORDERABLES Final Resu lt Performing Organization Address [facility] Co de Phone Number [facility] [address] [place] [address], * (ABNORMAL) Magnesium (12/01/2024 2:44 AM EST) Pathologist [facility] Magnesium 1.8(L) 1.9 - 2.6 mg/dL LAB CHEMISTRY METHOD 12/01/2024 3:41 AM EST [facility] Blood Venous blood specimen / Unknown Venipuncture / Unknown 12/01/2024 2:44 AM EST 12/01/2024 3:07 AM EST us Chris Leija MD LAB BLOOD ORDERABLES Final Resu lt Performing Organization Address [facility]/ZIP Co de Phone Number [facility] [address] [place] [address], * (ABNORMAL) Lipase (12/01/2024 2:44 AM EST) Lipase 78(H) 13 - 75 unit/L LAB CHEMISTRY METHOD 12/01/2024 3:41 AM EST [facility] Blood Venous blood specimen / Unknown Venipuncture / Unknown 12/01/2024 2:44 AM EST 12/01/2024 3:07 AM EST us Chris Leija MD LAB BLOOD ORDERABLES Final Resu lt [facility] [address] [place] [address], [place] [phone] * (ABNORMAL) Comprehensive metabolic panel (12/01/2024 2:44 AM EST) Sodium 137 133 - 145 mmol/L LAB CHEMISTRY METHOD 12/01/2024 3:56 AM EST [facility] Potassium 4.1 3.5 - 5.5 mmol/L LAB CHEMISTRY METHOD 12/01/2024 3:[address] [facility] Chloride 106 96 - 110 mmol/L LAB CHEMISTRY METHOD 12/01/2024 3:[address] [facility] CO2 24 21 - 32 mmol/L LAB CHEMISTRY METHOD 12/01/2024 3:56 AM EST [facility] Anion Gap 7 3 - 11 LAB CHEMISTRY METHOD 12/01/2024 3:[address] [facility] Glucose 410(HH) 70 - 100 mg/dL LAB CHEMISTRY METHOD 12/01/2024 3:[address] [facility] BUN 51(H) 5 - 25 mg/dL LAB CHEMISTRY METHOD 12/01/2024 3:[address] [facility] Creatinine 2.15(H) 0.70 - 1.30 mg/dL LAB CHEMISTRY METHOD 12/01/2024 3:[address] [facility] eGFR 37(L) >=60 mL/min/1. 73m2 LAB CHEMISTRY METHOD 12/01/2024 3:[address] [facility] Comment:Calculation based on the??Chronic Kidney Disease Epidemiology Collaboration (CKD-EPI) equation refit??without adjustment for race. BUN/Creatinine Ratio 23.7 LAB CHEMISTRY METHOD 12/01/2024 3:[address] [facility] Calcium 8.6 8.5 - 10.5 mg/dL LAB CHEMISTRY METHOD 12/01/2024 3:56 AM EST [facility] AST (SGOT) 23 10 - 42 unit/L LAB CHEMISTRY METHOD 12/01/2024 3:[address] [facility] ALT (SGPT) 67(H) 10 - 60 unit/L LAB CHEMISTRY METHOD 12/01/2024 3:[address] [facility] Alkaline Phosphatase 131(H) 42 - 121 unit/L LAB CHEMISTRY METHOD 12/01/2024 3:[address] [facility] Total Protein 6.3 6.0 - 8.0 g/dL LAB CHEMISTRY METHOD 12/01/2024 3:[address] [facility] Albumin 3.0(L) 3.2 - 5.0 g/dL LAB CHEMISTRY METHOD 12/01/2024 3:[address] [facility] Total Bilirubin 0.2 0.0 - 1.4 mg/dL LAB CHEMISTRY METHOD 12/01/2024 3:[address] [facility] Blood Venous blood specimen / Unknown Venipuncture / Unknown 12/01/2024 2:44 AM EST 12/01/2024 3:07 AM EST us Chris Leija MD LAB BLOOD ORDERABLES Final Resu lt [facility] [address] [place] [address], * Troponin I high sensitivity (12/01/2024 2:44 AM EST) High Sensitivity Troponin I 21 <=79 ng/L LAB CHEMISTRY METHOD 12/01/2024 3:46 AM EST [facility] Blood Venous blood specimen / Unknown Venipuncture / Unknown 12/01/2024 2:44 AM EST 12/01/2024 3:07 AM EST Narrative [facility] - 12/01/2024 3:46 AM EST High levels of biotin in samples may falsely decrease hsTroponin values. ??Use caution when interpreting hsTroponin results in patients taking biotin who exhibit renal impairment (eGFR <60) or in patients taking more than 20 mg/day of biotin. us Scot Mode Leija MD LAB BLOOD ORDERABLES Final Resu lt [facility] [address] [place] [address], [place] [phone] * ECG-Annotated (12/01/2024) us Provider Onbase MD [...] RN) documented in this encounter Care Teams Playground Official Relationship Specialty Start Date End Date Zari Henry MD [address] [place] [address] PCP - General Internal Medicine 08/17/21 documented as of this encounter
--- OUTSIDE RECORDS SUMMARY | 2024-12-20 10:39 | XMS_ITS | Encounter Summary ---
Author Organization [facility] [place] [address] Care Team Providers Care Race Relations Professor Name Role Phone Zari Henry MD Primary Care Provider [phone] Encounter Details Date Type Department Care Team (Late st Contact Info) Description 12/10/2024 Telephone Adult Medicine [address] [phone] Tonya Patel, RN Social History Tobacco Use [...] TCM call completed with patient. Discharged from [facility] on 12/08/2024 Shortness of breath Acute on [...] 10:30 AM EST Office Visit Adult Medicine [address] [phone] Zari Henry MD [address] [place] [address] 01/17/2025 4:20 PM EDT Office Visit Endocrinology [address] [phone] Lea Alex PA [address] [place] [address] 03/07/2025 2:00 PM EDT Office Visit Pulmonolgy - [place] [address] [phone] Nisa Machado MD [address] [address] 06/10/2025 12:00 PM EDT [facility] [address] [place] [address] Jong Hall MD [address] [address] documented as of this encounter Visit Diagnoses Not on filedocumented in this encounter Care Teams Race Relations Professor Relationship Specialty Start Date End Date Zari Henry MD [address] [place] [address] PCP - General Internal Medicine 08/17/21 documented as of this encounter
--- OUTSIDE RECORDS SUMMARY | 2024-12-20 10:39 | XMS_ITS | Clinical Summary ---
Author Organization [facility] (formerly [employer]) Address [address] [place] [address] Phone Care Team Providers Care Line Installer Trolley Name Role Phone Zari Henry MD Primary Care Provider Allergies Active Allergy Reactions Criticality Noted Date [...] lanteroL (ANORO ELLIPTA) 62.5-25 mcg/actuation inhaler 12/13/19 025 Discontinued furosemide (LASIX) 20 mg tablet [...] at nighttime Asthma-COPD overlap syndrome 08/17/2021 Overview (12/11/2024): Microscopic hematuria 12/25/2020 Overview (11/29/2024): Normal renal [...] Encounters Date Type Department Care Team Description 12/17/2024 Telephone Endocrinology - [address], [place] [phone] Lea Alex PA MEDICATION 12/17/2024 Telephone Adult Medicine [address] [phone] John Pulido [facility] Follow-up 12/10/2024 Telephone Adult [address] [phone] Tonya Patel RN 12/06/[address] [phone] Lea Alex PA VNA CALL 12/05/2024 10:30 AM EST Office Visit Adult [address] [phone] Zari Henry MD Acute on chronic right-sided congestive heart failure (CMS/HCC) (Primary Dx); HTN (hypertension), benign; Other hyperlipidemia; DM (diabetes mellitus), type 2 with peripheral vascular complications (CMS/HCC); Pneumonia of right lung due to infectious organism, unspecified part of lung 12/05/2024 Telephone Adult [address] [phone] Zari Henry MD Forms/questionnaires 12/03/2024 Telephone Adult [address] [phone] Zari Henry MD vna 12/01/2024 5:01 AM EST - 12/01/2024 9:54 AM EST [facility] [address] [place] [address] Rikki Acosta MD Edema, unspecified type (Primary Dx); Muscular deconditioning; Muscle cramp Discharge Disposition: Home or Self Care 11/28/2024 Telephone Adult Medicine [address] [phone] Zari Henry MD vna 11/28/2024 Telephone Adult Medicine [facility] [address] [place] [phone] Zari Henry MD Hospital Follow-up (Patient to be discharged right now but can't go until his has his follow up scheduled) 11/12/2024 Telephone [facility] Hematology Oncology [address] [place] [address] Moe Fernandes MD 09/20/2024 Telephone [facility] [address] [place] [phone] Lea Alex PA PRIOR AUTHORIZATION 09/20/2024 Telephone [facility] Hematology Oncology [address] [place] [address] Moe Fernandes MD 09/19/[address] 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 YARELIS (obstructive sleep apnea) 05/09/2022 CHF (congestive heart failure) ([facility]) 01/07/20 DM (diabetes mellitus), type 2 with peripheral vascular complications ([facility]) 12/05/2024 Family History Medical History Relation Name [...] 10:30 AM EST Office Visit Adult Medicine [address] [phone] Zari Henry MD [address] [place] [address] 01/17/2025 4:20 PM EDT Office Visit Endocrinology - [place] [address] [place] [address] Lea Alex PA [address] [place] [address] 03/07/2025 2:00 PM EDT Office Visit Pulmonolgy - [place] [address] [phone] Nisa Machado MD 175 [facility] [address] [place] [address] 06/10/2025 12:00 PM EDT Office Visit Nephrology - [facility] [address] [place] [phone] Jong Hall MD [address] [facility] [address] [place] [phone] Health Maintenance Due Date Last Done Comments Diabetes: Annual Foot Exam 1984 Diabetes: Annual Retina Eye Exam 1984 Hepatitis B Vaccines (1 of 3 - 19+ 3-dose series) 1993 Pneumococcal Vaccine: 50+ Years (2 of 2 [...] 12/01/2025 12/01/2024, 11/08/2024, 11/08/2024, Additional history exists DTaP,Tdap,and Td Vaccines (2 [...] Signed Date: 12/01/2024 09:17 ET Workstation ID: [id number] Transcribed By: Self Edit Transcribed Date: 12/01/2024 [...] Signed Date: 12/01/2024 09:17 ET Workstation ID: [id number] Transcribed By: Self Edit Transcribed Date: 12/01/2024 09:16 ET Rikki Acosta MD CV VASCULAR PROCEDURES Final R esult * Troponin I high sensitivity (12/01/2024 7:34 AM EST) Only the most recent of2 resultswithin the time period is included. [facility] High Sensitivity Troponin I 18 <=79 ng/L [...] lt [facility] [address] [place] [address], * ECG 12 lead (12/01/2024 5:18 AM EST) Only the most recent of2 resultswithin the time period is included. [facility] Ventricular Rate ECG 83 BPM GEMUSE Atrial Rate 83 BPM GEMUSE P-R Interval 124 ms GEMUSE QRS Duration 92 ms GEMUSE Q-T Interval 370 ms GEMUSE QTc 434 ms GEMUSE P Wave Avery 48 degrees GEMUSE R Avery 40 degrees GEMUSE T Avery 52 degrees GEMUSE ECG Interpretation Normal sinus [...] Signed Date: 12/01/2024 09:16 ET Workstation ID: [id number] Transcribed By: Self Edit Transcribed Date: 12/01/2024 [...] Signed Date: 12/01/2024 09:16 ET Workstation ID: [id number] Transcribed By: Self Edit Transcribed Date: 12/01/2024 09:15 ET Chris Leija MD IMG XR PROCEDURES Final Result * Beta hydroxybutyrate (12/01/2024 2:44 AM EST) [facility] Beta-Hydroxybu tyrate 1.4 0.2 - 2.8 mg/dL LAB CHEMISTRY METHOD 12/01/2024 8:01 AM EST [facility] Blood Venous blood specimen / Unknown Venipuncture / Unknown 12/01/2024 2:44 AM EST 12/01/2024 3:07 AM EST Rikki Acosta MD LAB BLOOD ORDERABLES Final Res ult [facility] [address] [place] [address], [place] [phone] * (ABNORMAL) CBC auto differential (12/01/2024 2:44 AM EST) Only the most recent of2 resultswithin the time period is included. [facility] WBC 18.0(H) 4.8 - 10.8 K/mcL LAB HEMETOLOGY METHOD 12/01/2024 3:12 AM EST [facility] RBC 4.20(L) 4.50 - 5.50 M/mcL LAB HEMETOLOGY METHOD 12/01/2024 3:12 AM [facility] Hemoglobin 10.3(L) 13.5 - 17.5 g/dL LAB HEMETOLOGY METHOD 12/01/2024 3:12 AM [facility] Hematocrit 33.0(L) 42.0 - 54.0 % LAB HEMETOLOGY METHOD 12/01/2024 3:12 AM [facility] MCV 78.6(L) 79.0 - 98.0 FL LAB HEMETOLOGY METHOD 12/01/2024 3:12 AM [facility] MCH 24.5(L) 27.0 - 32.0 pcg LAB HEMETOLOGY METHOD 12/01/2024 3:12 AM [facility] MCHC 31.2(L) 32.0 - 37.0 g/dL LAB HEMETOLOGY METHOD 12/01/2024 3:12 AM [facility] RDW 21.8(H) 11.0 - 15.0 % LAB HEMETOLOGY METHOD 12/01/2024 3:12 AM [facility] Platelets 317 130 - 400 K/mcL LAB HEMETOLOGY METHOD 12/01/2024 3:12 AM [facility] MPV 10.3 7.0 - 11.0 FL LAB HEMETOLOGY METHOD 12/01/2024 3:12 AM [facility] NRBC 0.0 <1.0 % LAB HEMETOLOGY METHOD 12/01/2024 3:12 AM [facility] NRBC Absolute 0.00 <0.10 K/mcL LAB HEMETOLOGY METHOD 12/01/2024 3:12 AM [facility] Neutrophils Relative 94.2 % LAB HEMETOLOGY METHOD 12/01/2024 3:12 AM [facility] Lymphocytes Relative 3.6 % LAB HEMETOLOGY METHOD 12/01/2024 3:12 AM [facility] Monocytes Relative 0.8 % LAB HEMETOLOGY METHOD 12/01/2024 3:12 AM [facility] Eosinophils Relative 0.1 % LAB HEMETOLOGY METHOD 12/01/2024 3:12 AM EST [facility] Basophils Relative 0.2 % LAB HEMETOLOGY METHOD 12/01/2024 3:12 AM [facility] Immature Granulocytes Relative 1.1 % LAB HEMETOLOGY METHOD 12/01/2024 3:12 AM EST [facility] Neutrophils Absolute 16.93(H) 1.50 - 7.00 K/mcL LAB HEMETOLOGY METHOD 12/01/2024 3:12 AM EST [facility] Lymphocytes Absolute 0.64(L) 1.00 - 5.00 K/mcL LAB HEMETOLOGY METHOD 12/01/2024 3:12 AM [facility] Monocytes Absolute 0.15(L) 0.20 - 1.00 K/mcL LAB HEMETOLOGY METHOD 12/01/2024 3:12 AM EST [facility] Eosinophils Absolute 0.01 0.00 - 0.50 K/mcL LAB HEMETOLOGY METHOD 12/01/2024 3:12 AM EST [facility] Basophils Absolute 0.03 0.00 - 0.20 K/mcL LAB HEMETOLOGY METHOD 12/01/2024 3:12 AM [facility] Immature Granulocytes Absolute 0.20(H) 0.00 - 0.03 K/mcL LAB HEMETOLOGY METHOD 12/01/2024 3:12 AM EST [facility] Blood Venous blood specimen / Unknown Venipuncture / Unknown 12/01/2024 2:44 AM EST 12/01/2024 3:07 AM EST us Chris Leija MD LAB BLOOD ORDERABLES Final Resu lt [facility] [address] [place] [address], * (ABNORMAL) B-type natriuretic peptide (12/01/2024 2:44 AM EST) BNP 300(H) <=100 pcg/mL LAB CHEMISTRY METHOD 12/01/2024 3:38 AM EST [facility] Blood Venous blood specimen / Unknown Venipuncture / Unknown 12/01/2024 2:44 AM EST 12/01/2024 3:07 AM EST us Chris Leija MD LAB BLOOD ORDERABLES Final Resu lt Performing Organization Address [facility]/ZIP Co de Phone Number [facility] [address] [place] [address], [place] [phone] * (ABNORMAL) Magnesium (12/01/2024 2:44 AM EST) Magnesium 1.8(L) 1.9 - 2.6 mg/dL LAB CHEMISTRY METHOD 12/01/2024 3:41 AM EST [facility] Blood Venous blood specimen / Unknown Venipuncture / Unknown 12/01/2024 2:44 AM EST 12/01/2024 3:07 AM EST us Chris Leija MD LAB BLOOD ORDERABLES Final Resu lt Performing Organization Address [facility]/ZIP Co de Phone Number [facility] [address] [place] [address], [place] [phone] * (ABNORMAL) Lipase (12/01/2024 2:44 AM EST) Lipase 78(H) 13 - 75 unit/L LAB CHEMISTRY METHOD 12/01/2024 3:41 AM EST [facility] Blood Venous blood specimen / Unknown Venipuncture / Unknown 12/01/2024 2:44 AM EST 12/01/2024 3:07 AM EST us Chris Leija MD LAB BLOOD ORDERABLES Final Resu lt [facility] [address] [place] [address], [place] [phone] * CK total and CKMB (12/01/2024 2:44 AM EST) [facility] Total CK 176 22 - 269 unit/L LAB CHEMISTRY METHOD 12/01/2024 8:01 AM EST [facility] CK-MB 2.2 1.0 - 3.6 ng/mL LAB CHEMISTRY METHOD 12/01/2024 8:01 AM EST [facility] CK-MB Index 0.0 0.0 - 5.0 LAB CHEMISTRY METHOD 12/01/2024 8:01 AM [facility] Blood Venous blood specimen / Unknown Venipuncture / Unknown 12/01/2024 2:44 AM EST 12/01/2024 3:07 AM EST Rikki Acosta MD LAB BLOOD ORDERABLES Final Res ult Performing Organization Address [facility]/ZIP Co de Phone Number [facility] [address] [place] [address], [place] [phone] * (ABNORMAL) Comprehensive metabolic panel (12/01/2024 2:44 AM EST) Only the most recent of2 resultswithin the time period is included. [facility] Sodium 137 133 - 145 mmol/L LAB CHEMISTRY METHOD 12/01/2024 3:56 AM EST [facility] Potassium 4.1 3.5 - 5.5 mmol/L LAB CHEMISTRY METHOD 12/01/2024 3:56 AM EST [facility] Chloride 106 96 - 110 mmol/L LAB CHEMISTRY METHOD 12/01/2024 3:56 AM [facility] CO2 24 21 - 32 mmol/L LAB CHEMISTRY METHOD 12/01/2024 3:56 AM EST [facility] Anion Gap 7 3 - 11 LAB CHEMISTRY METHOD 12/01/2024 3:56 AM [facility] Glucose 410(HH) 70 - 100 mg/dL LAB CHEMISTRY METHOD 12/01/2024 3:56 AM [facility] BUN 51(H) 5 - 25 mg/dL LAB CHEMISTRY METHOD 12/01/2024 3:56 AM [facility] Creatinine 2.15(H) 0.70 - 1.30 mg/dL LAB CHEMISTRY METHOD 12/01/2024 3:56 AM [facility] eGFR 37(L) >=60 mL/min/1. 73m2 LAB CHEMISTRY METHOD 12/01/2024 3:56 AM [facility] Comment:Calculation based on the??Chronic Kidney Disease Epidemiology Collaboration (CKD-EPI) equation refit??without adjustment for race. BUN/Creatinine Ratio 23.7 LAB CHEMISTRY METHOD 12/01/2024 3:56 AM [facility] Calcium 8.6 8.5 - 10.5 mg/dL LAB CHEMISTRY METHOD 12/01/2024 3:56 AM [facility] AST (SGOT) 23 10 - 42 unit/L LAB CHEMISTRY METHOD 12/01/2024 3:56 AM [facility] ALT (SGPT) 67(H) 10 - 60 unit/L LAB CHEMISTRY METHOD 12/01/2024 3:56 AM [facility] Alkaline Phosphatase 131(H) 42 - 121 unit/L LAB CHEMISTRY METHOD 12/01/2024 3:56 AM [facility] Total Protein 6.3 6.0 - 8.0 g/dL LAB CHEMISTRY METHOD 12/01/2024 3:56 AM [facility] Albumin 3.0(L) 3.2 - 5.0 g/dL LAB CHEMISTRY METHOD 12/01/2024 3:56 AM [facility] Total Bilirubin 0.2 0.0 - 1.4 mg/dL LAB CHEMISTRY METHOD 12/01/2024 3:56 AM [facility] Blood Venous blood specimen / Unknown Venipuncture / Unknown 12/01/2024 2:44 AM EST 12/01/2024 3:07 AM EST us Chris Leija MD LAB BLOOD ORDERABLES Final Resu lt Performing Organization Address [facility]/ZIP Co de Phone Number [facility] [address] [place] [address], [place] [phone] * ECG-Annotated (12/01/2024) Only the most recent of2 resultswithin the time period is included. us Provider Onmarion MICHELLE ECG ORDERABLES Final Result * (ABNORMAL) Hemoglobin [...] KARIMI LAB BLOOD ORDERABLES Final Resul t Performing Organization Address [facility]/ZIP Co de Phone Number [facility] [address] [place] [address], [place] [phone] * (ABNORMAL) Basic metabolic panel (11/08/2024 12:32 PM EST) Sodium 137 133 - 145 mmol/L LAB CHEMISTRY METHOD 11/09/2024 12:22 AM EST [facility] Potassium 3.6 3.5 - 5.5 mmol/L LAB CHEMISTRY METHOD 11/09/2024 12:22 AM EST [facility] Chloride 105 96 - 110 mmol/L LAB CHEMISTRY METHOD 11/09/2024 12:22 AM [facility] CO2 26 21 - 32 mmol/L LAB CHEMISTRY METHOD 11/09/2024 12:22 AM [facility] Anion Gap 6 3 - 11 LAB CHEMISTRY METHOD 11/09/2024 12:22 AM [facility] Glucose 125(H) 70 - 100 mg/dL LAB CHEMISTRY METHOD 11/09/2024 12:22 AM [facility] BUN 26(H) 5 - 25 mg/dL LAB CHEMISTRY METHOD 11/09/2024 12:22 AM [facility] Creatinine 1.42(H) 0.70 - 1.30 mg/dL LAB CHEMISTRY METHOD 11/09/2024 12:22 AM [facility] eGFR 60 >=60 mL/min/1. 73m2 LAB CHEMISTRY METHOD 11/09/2024 12:22 AM [facility] Comment:Calculation based on the??Chronic Kidney Disease Epidemiology Collaboration (CKD-EPI) equation refit??without adjustment for race. BUN/Creatinine Ratio 18.3 LAB CHEMISTRY METHOD 11/09/2024 12:22 AM [facility] Calcium 9.2 8.5 - 10.5 mg/dL LAB CHEMISTRY METHOD 11/09/2024 12:22 AM [facility] Blood Venous blood specimen / Unknown Venipuncture / Unknown 11/08/2024 12:32 PM EST 11/08/2024 12:32 PM EST us Lea KARIMI LAB BLOOD ORDERABLES Final Resul t [facility] [address] [place] [address], * (ABNORMAL) Iron and TIBC (11/08/2024 12:04 [...] EST Moe Fernandes MD LAB BLOOD ORDERABLES Final R esult [facility] [address] [place] [address], [place] [phone] * Lactate dehydrogenase (11/08/2024 12:04 PM EST) LDH 226 120 - 246 unit/L LAB CHEMISTRY METHOD 11/08/2024 1:56 PM EST [facility] Blood Venous blood specimen / Unknown Venipuncture / Unknown 11/08/2024 12:04 PM EST 11/08/2024 1:32 PM EST Moe Fernandes MD LAB BLOOD ORDERABLES Final R esult [facility] [address] [place] [address], [place] [phone] * (ABNORMAL) Ferritin (11/08/2024 12:04 PM EST) Ferritin 23(L) 26 - 388 ng/mL LAB CHEMISTRY METHOD 11/08/2024 1:58 PM EST [facility] Blood Venous blood specimen / Unknown Venipuncture / Unknown 11/08/2024 12:04 PM EST 11/08/2024 1:32 PM EST us Moe Fernandes MD LAB BLOOD ORDERABLES Final R esult [facility] [address] [place] [address], [place] [phone] from Last 3 Months Insurance [facility] Care Teams Line Installer Trolley Relationship Specialty Start Date End Date Zari Henry MD [address] [place] [address] PCP - General Internal Medicine 08/17/21
--- OUTSIDE RECORDS SUMMARY | 2024-12-20 10:39 | XMS_ITS | Encounter Summary ---
Author Organization [facility] Address [address] [place] [phone] Phone Care Team Providers Care Sandwich Board Carrier Name Role Phone Zari Henry MD Primary Care Provider [phone] Reason for Visit * Reason Comments Chronic Kidney Disease Encounter Details Date Type Department Care Team (Late st Contact Info) Description 12/11/2024 3:00 PM EST Office Visit [facility] [address] [phone] Jong Hall MD [address] [phone] Stage 3 chronic kidney disease, not otherwise specified (HCC) (Primary Dx); Hypertension; Diabetes mellitus, not otherwise specified (HCC); Heart failure with normal ejection fraction (HCC); Other proteinuria Social History Tobacco Use Types Packs/Day Years Used Date Smoking Tobacco: Every Day Cigarettes Smokeless Tobacco: Never Alcohol Use Standard Drinks/Week [...] Sign Reading Time Taken Comments Blood Pressure 110/54 12/11/2024 3:02 PM EST Pulse 50 12/11/2024 3:02 PM EST Temperature - - Respiratory Rate - - Oxygen Saturation - - Inhaled Oxygen Concentration - - Weight 66.7 kg (147 lb) 12/11/2024 3:02 PM EST Height - - Body Mass Index - - documented in this encounter Progress Notes * Jong Hall MD - 12/11/2024 3:00 PM EST [facility] Patient Name: Ciara Quiroga, Sylvia Date of : 1975, 49 y.o. Date: 12/11/2024 Referring MD: No primary care provider on file. PCP: Zari Henry MD Chief Complaint: Chief Complaint Patient presents with Chronic Kidney Disease Reason For Visit: I had the pleasure of seeing your patient for hospital follow up and CKD. He was admitted to [facility] with decompensated CHF. He lost 10 lbs. The following portions of the patient's chart were reviewed in this encounter and updated as appropriate: Allergies Meds Problems Med Hx Surg Hx Fam Hx Constitutional: Negative for chills, fever, malaise/fatigue and weight loss. HENT: Negative for ear pain, hearing loss and tinnitus. Eyes: Negative for blurred vision, double vision, photophobia and pain. Respiratory: Negative for cough, hemoptysis, sputum production, shortness of breath and wheezing. Cardiovascular: Negative for chest pain, palpitations, orthopnea, claudication and leg swelling. Gastrointestinal: Negative for abdominal pain, diarrhea, nausea and vomiting. Genitourinary: Negative for dysuria, flank pain, frequency, hematuria and urgency. Musculoskeletal: Negative for myalgias. Skin: Negative for itching and rash. Neurological: Negative for dizziness, tingling and headaches. Psychiatric/Behavioral: Negative for depression. Full 13 point review of systems unremarkable except as noted above. Past Medical History: Diagnosis Date Acute kidney failure (HCC) Anemia Anxiety Asthma Chronic kidney disease Congestive heart failure (HCC) Depressive disorder Diabetes mellitus without mention of complication, type II or unspecified type, not stated as uncontrolled (HCC) Esophageal reflux Essential hypertension Hypoxia Other and unspecified hyperlipidemia Peripheral vascular disease (HCC) Pneumonia Proteinuria Pulmonary edema Shortness of breath Sleep apnea History reviewed. No pertinent surgical history. Social History Tobacco Use Smoking status: Every Day Types: Cigarettes Smokeless tobacco: Never Substance Use Topics Alcohol use: Yes Family History Problem Relation Age of Onset Kidney disease Mother Heart disease Father Dementia Father Current Outpatient Medications Medication Sig Dispense Refill albuterol HFA (PROVENTIL HFA;VENTOLIN HFA) 108 (90 Base) MCG/ACT inhaler Inhale 2 puffs every 6 (six) hours if needed for wheezing amLODIPine (NORVASC) 10 MG tablet Take 10 mg by mouth 1 (one) time each day aspirin (ST VIVEK) 81 MG EC tablet Take 81 mg by mouth 1 (one) time each day atorvastatin (LIPITOR) 40 MG tablet Take 40 mg by mouth 1 (one) time each day cephalexin (KEFLEX) 500 MG capsule take 1 capsule by mouth four times a day for 7 days doxycycline (VIBRAMYCIN) 100 MG capsule Take 100 mg by mouth in the morning and 100 mg in the evening. Take with a full glass of water and do not lie down for at least 30 minutes after.. escitalopram (LEXAPRO) 10 MG tablet Take 10 mg by mouth 1 (one) time each day ferrous sulfate 325 (65 Fe) MG tablet Take 325 mg by mouth 1 (one) time each day with breakfast gabapentin (NEURONTIN) 300 MG capsule Take 300 mg by mouth in the morning and 300 mg in the eveningand 300 mg before bedtime. hydrALAZINE 50 MG tablet Take 50 mg by mouth in the morning and 50 mg in the evening and 50 mg before bedtime. insulin lispro protamine-insulin lispro (HumaLOG 50-50) (50-50) 100 UNIT/ML inj pen Inject under the skin 2 (two) times a day before meals Magnesium 400 MG tablet Take by mouth metoprolol succinate XL (TOPROL-XL) 100 MG 24 hr tablet Take 100 mg by mouth 1 (one) time each day Do not crush or chew. nicotine (NICODERM CQ) 21 MG/24HR Place 1 patch on the skin 1 (one) time each day at the same time nicotine polacrilex (NICORETTE) 2 MG gum Chew 2 mg if needed for smoking cessation omeprazole (PriLOSEC) [address] capsule Take 40 mg by mouth 1 (one) time each day Do not crush or chew. sodium polystyrene sulfonate (KAYEXALATE) powder Take 15 g by mouth Sodium Zirconium Cyclosilicate (Lokelma) 10 g pack Take 10 g by mouth 3 (three) times a week sucralfate (CARAFATE) 1 g tablet Take 1 g by mouth in the morning and 1 g at noon and 1 g in the evening and 1 g before bedtime. torsemide (DEMADEX) 20 MG tablet Take 40 mg by mouth traZODone (DESYREL) 50 MG tablet Take 50 mg by mouth every night Umeclidinium-Vilanterol (Anoro Ellipta) 62.5-25 MCG/ACT aerosol powder Inhale losartan (Cozaar) 25 MG tablet Take 1 tablet (25 mg total) by mouth 1 (one) time each day 30 [id number] No current facility-administered medications for this visit. Allergies Allergen Reactions Dulaglutide Nausea And Vomiting Metformin Gi distress Objective: Vitals: 12/11/24 1502 BP: 110/54 Pulse: 50 Weight: 147 lb (66.7 kg) Physical Exam Constitutional: Oriented to person, place, and time. HEENT: Mouth/Throat: Oropharynx is clear and moist. Eyes: Pupils are equal, round, and reactive to light. Neck: No JVD present. Cardiovascular: Regular rhythm. Pulmonary/Chest: Breath sounds normal. Abdominal: Soft. There is no abdominal tenderness. Musculoskeletal: Normal range of motion. Neurological: Alert and oriented to person, place, and time. Skin: Skin is warm. Psychiatric: Normal mood and affect. No results found for: EGFRAFR GFR Calculated Date Value Ref Range Status 07/12/2023 49 (L) >60 Final Comment: This eGFR result was calculated using the CKD-EPI 2020 Creatinine Equation Chemistry Lab Units 12/01/24 0244 11/08/24 1232 11/08/24 1204 07/12/23 1423 04/12/23 0000 12/28/22 0000 CREATININE mg/dL 2.15* 1.42* 1.42* 1.69* 1.50* 1.26 BUN mg/dL 51* 26* 26* 31* 30* 14 BUN / CREAT RATIO 23.7 18.3 18.3 -- -- -- EGFRNAFR -- -- -- 49* 55 60 GLUCOSE mg/dL 410* 125* 125* 123* 310* -- POTASSIUM mmol/L 4.1 3.6 3.5 4.2 6.0* 5.4 SODIUM mmol/L 137 137 136 140 138 140 CO2 mmol/L 24 26 24 25 24 -- CHLORIDE mmol/L 106 105 105 108 103.0 111.0* ALBUMIN g/dL 3.0* -- 3.2 -- -- -- BILIRUBIN TOTAL mg/dL 0.2 -- 0.3 -- -- -- AST unit/L -- -- -- -- Bone Mineral Lab Units 12/01/24 0244 11/08/24 1232 11/08/24 1204 07/12/23 1423 04/12/23 0000 CALCIUM mg/dL 8.6 9.2 8.9 8.4* 9.2 ALK PHOS unit/L 131* -- 138* -- -- PTH pg/mL -- -- -- 86 -- VIT D 25 HYDROXY ng/mL -- -- -- 18* -- CBC Lab Units 04/12/23 0000 12/27/22 0000 WBC AUTO 10*3/ML 12.1* 14.2* MCV -- 78.7* HEMATOCRIT 32.7* 30.7* HEMOGLOBIN 10.2* 9.4* PLATELETS AUTO 10*3/UL 264 302 Urine Lab Units 07/12/23 1423 12/28/22 1049 PROT/CREAT RATIO UR -- 3.16* ALB MG/G CREAT UR mg/G 175.4* -- No lab exists for component: SPECGRAV , GLUCOSEUR , BILIRUBINUR , RBCUR , UPROTEIN , LEUKOCYTESUR , NITRITE Labs Lab Units 12/24/22 1138 C3 COMPLEMENT mg/dL 161 C4 COMPLEMENT mg/dL 31 Labs Lab Units 12/24/22 1138 IGG mg/dL 776 IGM mg/dL 149 IGA mg/dL 438* PLAN: Assessment & Plan 1. Stage 3 chronic kidney disease, not otherwise specified (HCC) 2. Hypertension 3. Diabetes mellitus, not otherwise specified (HCC) 4. Heart failure with normal ejection fraction (HCC) 5. Other proteinuria He developed KELVIN due to cardio renal syndrome. Scr was 1.83 m g/dl upon discharge (Scr peaked at 2.4 mg/dl). Kidney function has improved and is close to baseline. He has macroscopic proteinuria. He has CKD due to: -diabetic and hypertensive kidney disease -ischemic nephropathy Urine sediment was benign. Complement level is normal, KEVIN is negative. Hep C Ab is negative. Serum immunofixation is normal. He previously developed KELVIN due to a combination of contrast induced nephrotoxicity and renal hypoperfusion. Doppler renal arteries was suggestive of hemodynamically significant right renal artery stenosis and borderline significant left hemodynamically significant renal artery stenosis. (peak velocity was elevated but renal aortic ratio was not done). MRA (06/21) was negative for renal artery stenosis. Previous CT scan with IV contrast had showed adrenal nodule but 24 hour urine collection for cortisol and catecholamines was normal. MRI in 2023 showed stable benign adrenal prominence. He has HFpEF and volume status is above dry weight. He is candidate for SGTL2 inhibitor. PLAN: Continue torsemide 40 mg bid Reduced amlodipine 5 mg daily Add losartan 25 mg daily Goal to lose 4-5 lbs Follow kidney function and electrolytes iPTH and vitamin d level UPCR Avoid NSAID Low sodium diet Orders Placed This Encounter Renal funtion panel urine albumin / creatinine ratio PTH, intact Vit D 25 hydroxy losartan (Cozaar) 25 MG tablet Return in 6 weeks (on 01/22/2025). Jong Hall MD documented in this encounter Plan of Treatment Upcoming Encounters Date Type Department Care Team (Late st Contact Info) Description 01/27/2025 2:30 PM EDT Office Visit [facility] [address] [phone] Jong Hall MD [address] [phone] Scheduled Orders Name Type Priority Associated Diagnoses Orde r Schedule Renal funtion panel Lab Routine Stage 3 chronic kidney disease, not otherwise specified (HCC) Expected: 12/11/2024, Expires: 01/08/2026 urine albumin / creatinine ratio Lab Routine Stage 3 chronic kidney disease, not otherwise specified (HCC) Expected: 12/11/2024, Expires: 01/08/2026 PTH, intact Lab Routine Stage 3 chronic kidney disease, not otherwise specified (HCC) Expected: 12/11/2024, Expires: 01/08/2026 Vit D 25 hydroxy Lab Routine Stage 3 chronic kidney disease, not otherwise specified (HCC) Expected: 12/11/2024, Expires: 01/08/2026 documented as of this encounter Visit Diagnoses Diagnosis Stage 3 chronic kidney disease, not otherwise specified (HCC)- Primary Hypertension Diabetes mellitus, not otherwise specified (HCC) Heart failure with normal ejection fraction (HCC) Other proteinuria documented in this encounter Care Teams Sandwich Board Carrier Relationship Specialty Start Date End Date Zari Henry MD [address] [place] [address] PCP - General Internal Medicine 12/09/24 documented as of this encounter
--- OUTSIDE RECORDS SUMMARY | 2024-12-20 10:39 | XMS_ITS ---
Author Organization [facility] Address [address] [place] [phone] Phone Care Team Providers Care Wind Turbine Engineer Name Role Phone Zari Henry MD Primary Care Provider Transitional Care Management Status:Ongoing (Active) Start date:12/08/2024 Enrollment date:12/10/2024 Enrollment reason:Identified using hospital discharge data Case Team Name Relationship Phone Andreea Nichole LPN Care Manager(Responsible Staf f) Continued Care and Services Coordination
--- OUTSIDE RECORDS SUMMARY | 2024-12-20 10:39 | XMS_ITS | Continuity of Care Document ---
Author Organization [facility] ter Address [address] [place] [id number]- Care Team Providers Care Operation Agent Name Role Phone Zari Henry MD Primary Care Physician Encounter [facility] Date(s): 12/12/24 - 12/16/[address] [id number] Encounter Diagnosis Coronavirus infection(Final) - 12/12/24 Sepsis(Final) - 12/12/24 Chest pain(Final) - 12/12/24 Bilateral leg edema(Final) - 12/12/24 Respiratory failure, acute(Final) - 12/14/24 Discharge Disposition: A-D/C Home Attending Physician: Stone Fritz MD Admitting Physician: Fercho Wilson MD Referring Physician: Not on Staff, Referring [...] 0 Refills, Maintenance, 07/25/22 3:49:00 PM EDT, [facility], Partial fill upon patient request if the prescription is for a schedule II opioid drug., 165, cm, 04/11/22 8:29:00 EDT, Height, 59, kg, 04/07/22 22:23:00 EDT, Dry Weight Start Date: 07/25/22 Status: Ordered Quantity: 6.7 Unit: g Repeat number: 1 amLODIPine 10 mg oral tablet 10 mg, Tablet, By Mouth, 12/16/24 9:00:00 AM EST Start Date: 12/16/24 Stop Date: 12/16/24 Status: Completed Repeat number: 1 amLODIPine 10 mg oral tablet 10 mg, 1, tablet, By Mouth, Daily, # 30 tablet, Refills 0, Tot. Refills 0, Maintenance, 04/11/22 11:16:00 AM EDT, Route to Pharmacy Electronically, [facility], Partial fill upon patient request if [...] oral capsule 300 mg, Capsule, By Mouth, 12/16/24 9:00:00 AM EST Start Date: 12/16/24 Stop Date: 12/16/24 Status: Completed Repeat number: 1 gabapentin 300 mg oral [...] Date: 12/06/24 Status: Ordered Repeat number: 1 Lipitor 40 mg oral [...] Refills, Maintenance, 04/11/22 11:08:00 AM EDT, Tablet, [facility], Partial fill upon patient request if [...] Quantity: 3.5 Unit: mL Repeat number: 1 predniSONE 20 mg oral tablet 2 tablet = 40 mg, By Mouth, Daily in AM, for 4 days, # 8 tablet, 0 Refills, Acute 12/20/24 10:25:00 AM EST, 12/16/24 10:25:00 AM EST, Tablet, [facility], Partial fill upon patient requestif the prescription is for a schedule II opioid drug., 165, cm, 12/16/24 9:05:00 EST, Height, 65.8,kg, 12/14/24 3:00:00 EST, Dry Weight Start Date: 12/16/24 Stop Date: 12/20/24 Status: Ordered Quantity: 8.0 Unit: tablet Repeat number: 1 sucralfate 1 gm oral tablet Refills 0, Maintenance, 12/06/24 5:49:00 PM EST, Partial fill upon patient request if the prescription is for a schedule II opioid drug. Start Date: 12/06/24 Status: Ordered Repeat number: 1 Toprol XL 100 mg oral tablet, extended release 100 mg, XL Tablet, By Mouth, 12/16/24 9:00:00 AM EST Start Date: 12/16/24 Stop Date: 12/16/24 Status: Completed Repeat number: 1 Toprol XL 100 mg oral tablet, extended release 100 mg, 1, tablet, By Mouth, Daily, # 30 tablet, Refills 0, Maintenance, 04/08/22 3:20:00 AM EDT, Partial fill upon patient request if the prescription is for a schedule II opioid drug. Start Date: 04/08/22 Status: Ordered Quantity: 30.0 Unit: tablet Repeat number: 1 torsemide 20 mg oral tablet 2 tablet = 40 mg, By Mouth, 2 times a day, # 120 tablet, 0 Refills, Maintenance, 12/08/24 10:17:00 AMEST, Tablet, [facility], Partial fill upon patient [...] Exam Date Time Procedure Performing Provider Status 12/12/24 3:49 AM Chest 2 Views Frontal and Lat Maur Vigil; Josefina (Verified) Notes: (Chest 2 Views Frontal and Lat) Reason For Exam: Shortness of Breath, Fever;Other: RESULT: Chest 2 Views Frontal and Lat Examination: Chest performed on 12/12/2024. History: Shortness of breath and chest pressure. Findings: Frontal and lateral views of the chest are compared to a prior study dated 12/06/24. The cardiac and mediastinal silhouettes are within normal limits. Pulmonary vascular congestion is demonstrated. The osseous and soft tissue structures are unremarkable. Impression: Pulmonary vascular congestion. WSN: [id number] Ordering Physician: Dimas Davidson Dictated By: Shelbi Coleman MD Dictated Date/Time: 12/12/24 7:55 am Reviewed By: Shelbi Coleman MD Signed By: Shelbi Coleman MD Signed Date/Time: 12/12/24 7:55 am Transcribed By: SARIKA Transcribed Date/Time: 12/12/24 7:54 am Vital Signs Most recent to oldest [Reference Range]: 1 2 3 Height 165 cm (12/16/24 9:05 AM) 165 cm (12/16/24 5:01 AM) 165 cm (12/16/24 3:42 AM) Weight 63.9 kg (12/16/24 9:04 AM) 65.8 kg (12/14/24 4:00 AM) 65.8 kg (12/14/24 2:51 AM) Oxygen Saturation [94-100 %] 98 % (12/16/24 9:05 AM) 97 % (12/16/24 5:01 AM) 95 % (12/16/24 3:00 AM) Pulse Rate [55-90 bpm] 72 bpm (12/16/24 10:25 AM) 73 bpm (12/16/24 9:05 AM) 80 bpm (12/16/24 5:01 AM) Body Mass Index [18.5-24.99 kg/m2] 24.17 kg/m2 (12/14/24 2:51 AM) Blood Pressure [90-138/55-84 mm Hg] 157/76mm Hg *H* (12/16/24 10:25 AM) 157/76mm Hg *H* (12/16/24 10:25 AM) 157/76mm Hg *H* (12/16/24 9:05 AM) Respiratory Rate [16-30 br/min] 16 br/min (12/16/24 10:25 AM) 16 br/min (12/16/24 9:05 AM) 18 br/min (12/16/24 5:01 AM) Temperature [96.8-100.4 DegF] 98.0 DegF (12/16/24 9:05 AM) 97.2 DegF (12/16/24 5:01 AM) 97.2 DegF (12/16/24 3:42 AM) Liters per Minute 2 L/min (12/16/24 3:00 AM) 2 L/min (12/16/24 2:00 AM) 2 L/min (12/16/24 1:00 AM) Mode of Delivery (Oxygen) Room air (12/16/24 9:05 AM) Room air (12/16/24 5:01 AM) Nasal cannula (12/16/24 3:00 AM) Blood pressure sites Arm, left (12/16/24 9:05 AM) Arm, left (12/16/24 5:01 AM) Arm, right (12/16/24 3:42 AM) Temperature Route Oral (12/16/24 9:05 AM) Oral (12/16/24 5:01 AM) Oral (12/16/24 3:42 AM) Dry Weight 65.8 kg (12/14/24 2:51 AM) Weight Obtained Via Bed scale (12/14/24 4:00 AM) Bed scale (12/14/24 2:51 AM) Dry Weight Obtained Via Bed scale (12/14/24 2:51 AM) Social History Social History Type Response Smoking Status 5-9 cigarettes (betw een 1/4 to 1/2 pack)/day in last 30 days; Interested in cessation: Yes entered on: 04/07/22 Sex Male Sex Representation Male (finding) Admission evaluation note * Kiarra KARIMI, Yevgeniy Brandt: PERFORM Event Display: Admission Note Authored Date: Patient: ??RENU QUIROGA ? Age:??49 Years?Sex:??Male?:??1975?? Chief Complaint/Reason for Consultation Coming from respite home, recovering from pneumonia. Woke up feeling SOB with chest pressure. Recent PNM and sepsis diagnosis. Has BL LE edema. Endorses fever/chills and diaphoresis. Pale. History of Present Illness 49-year-old male with history of??hypertension, diabetes mellitus on insulin, HFpEF, COPD, asthma,??dyslipidemia, depression, anxiety,??neuropathy, continued tobacco usage??who was recently hospitalized??for sepsis secondary to pneumonia and discharged to detention facility??who??states??1 week ago??he developed increased lower extremity swelling, pressure??on his chest while breathing??when laying flat,??pain in his??legs related to the swelling??and shortness of breath. ?? In the ED, he was found to have??coronavirus OC43,??elevated BNP,??fluid overload??on chest x-ray and physical exam.?? He was hypoxic and required??rescue BiPAP. ??He was given Lasix 40 mg IV??at 4:20 AM. ??He was given vancomycin and Zosyn for presumed lower extremity cellulitis??and is referred for admission. ?? Social history:??Still smoking half pack a day.?? No alcohol or drug use. ?? Baseline:??Uses 2 to 4 L oxygen??at night, nothing during the day. ??Does not use assistive devices.?? Currently residing at??medical respite. ?? Healthcare proxy:??His sister Marcia Quiroga ?? Code status: Full code Review of Systems SOB, LE edema and pain. No chest pain, fevers, chills, nausea, vomiting or diarrhea. Eating and sleeping well. Objective Vital Signs?? Temperature: 97.4 DegF (12/12/24 08:20:00) Temperature Route: Axillary (12/12/24 08:20:00) Pulse Rate: 85 bpm (12/12/24 11:26:00) Heart Rate Monitored: 67 bpm (12/12/24 07:03:00) Respiratory Rate:??15 br/min??Low (12/12/24::) Systolic Blood Pressure: 116 mm Hg (12/12/24:26:00) Diastolic Blood Pressure: 59 mm Hg (12/12/24::) Blood pressure sites: Arm, left (12/12/24::00) Mean Arterial Pressure: 78 mm Hg (12/12/24 11:26:00) Pulse Pressure: 57 mm Hg (12/12/24 11:26:00) Oxygen Saturation: 95 % (12/12/24:26:00) Liters per Minute: 5 L/min (12/12/24:26:00) Mode of Delivery (Oxygen): Nasal cannula (12/12/24 11:26:00) FiO2: 50 % (12/12/24 07:03:00) Early Warning Score: 4 (12/12/24::53) ? Intake/Output? 12/12 06:30 12/12 07:00 12/11 07:00 12/10 07:00 12/09 07:00 ?? 12/12 12:09 12/12 12:09 12/12 06:59 12/11 06:59 12/10 06:59 Intake ?0 ?0 ?0 ?0 ?0 Output ?400 ?400 ?0 ?0 ?0 Net Total ? -400 ? -400 ?0 ?0 ?0 ? Physical Exam Temperature?97.4 ?(08:22) Systolic Blood Pressure?116 ?(11:26) Diastolic Blood Pressure?59 ?(11:26) Pulse?85 ?(11:26) SpO2?95 ?(11:26) Respiratory Rate?15 ?(11:26) ?? Constitutional: Alert, in no distress. Mental Status: Oriented to person, place and time. Respiratory: Diminished BS throughout, exp wheezes. Cardiovascular: Regular rate and rhythm, no murmurs, rubs or gallops. Abdomen: Soft, non-tender, non-distended.??Normal bowel sounds. Skin: No rashes or lesions. Psychiatric: Normal mood and affect. Extremities: Tense warm pitting edema BLE calves, mild in thighs. Assessment/Plan Assessment:??49-year-old male with history of??hypertension, diabetes mellitus on insulin, HFpEF, COPD, asthma,??dyslipidemia, depression, anxiety,??neuropathy, continued tobacco usage??who was recently hospitalized??for sepsis secondary to pneumonia who presents with 1 week of increased lower extremity swelling, pressure??on his chest while breathing??when laying flat,??pain in his??legs relatedto the swelling??and shortness of breath. He was found to have coronavirus OC43, acute hypoxic respiratory failure and acute on chronic HFpEF exacerbation. ?? Sepsis (A41.9) Acute and chronic respiratory failure with hypoxia (J96.21) Coronavirus infection (B34.2):? Isolation precautions. Trialing off BiPAP. Still requiring o2, wean as tolerated. Patient is dependent on 2-4 L at night but is not on O2 during the day or with activity. Continue scheduled and PRN nebs. No indication for further antibiotics. ?? Bilateral leg edema (R60.0) Acute on chronic heart failure with preserved ejection fraction (HFpEF) (I50.33):? Last echo from March 2023. Repeat echo. Strict I/O, daily weights. Continue Lasix 40 mg IV BID. Repeat BMP in AM. ?? Diabetes mellitus (E11.9):? On insulin pump at home. Last admission BIDS recommended: Lantus 20 units daily Start lispro scale 4: 100+2: 50, 3 times daily prior to meals.??Hold if NPO. Will order this while inpatient. Plan to resume insulin pump 20-22 hours after last lantus dose. ?? Tobacco Use Treatment:? Requesting nicotine patch, start 21 mg TD daily. ?? Quality measures: ?? Code status:??Full Diet:??Diabetic DVT prophylaxis:??SCDs ?? I spent a total of??120 minutes today reviewing the chart/medical records, speaking with the patient, formulating and discussing the treatment plan and documenting the findings and encounter. Discussed plan with patient, nursing,??and case management. ?? Yevgeniy Plunkett II PA-C [facility] Pager #[phone] or [employer]? Histories Allergies Allergies ?(Active and Proposed Allergies [...] tablet)??1 tab(s) 40 Milligram By Mouth Daily Cephalexin (cephalexin monohydrate 500 mg oral tablet)??1 tab(s) 500 Milligram By Mouth 4 times a day for 7 Days Escitalopram (escitalopram 10 mg oral tablet)??1 tab(s) 10 Milligram By Mouth Daily Furosemide (Lasix 20 mg oral tablet)??40 Milligram By Mouth Daily at bedtime Gabapentin (gabapentin 300 mg oral capsule)??300 Milligram [...] then repeat cycle up to 4 times torsemide (torsemide 20 mg oral tablet)??2 tab(s) 40 Milligram By Mouth 2 times a day for 30 Days Trazodone (traZODone 50 mg oral tablet)??100 Milligram [...] oral tablet) ??40 mg, By Mouth, Daily Escitalopram 10 mg Tablet (escitalopram 10 mg oral tablet) ??10 mg, By Mouth, Daily Furosemide Inj (Lasix ??Inj) ??40 mg 4 mL, IV Push Slowly, 2 times a day Gabapentin 300 mg Capsule (gabapentin 300 mg oral capsule) ??300 mg, By Mouth, 3 times a day Insulin Glargine 100 units/mL Inj (Lantus Inj) ??20 units 0.2 mL, Subcutaneous Injection, Daily Insulin Lispro 100 units/mL Inj (Humalog Sliding Scale) ??4-14 units, Subcutaneous Injection, 3 times a day before meals Insulin Lispro 100 units/mL Inj (Insulin LISPRO Sliding Scale) ??2-10 units, Subcutaneous Injection, 3 times a day before meals Metoprolol 100 mg XL Tablet (Toprol XL 100 mg oral tablet, extended release) ??100 mg, By Mouth, Daily NaCl 0.9% Flush 3ml (NaCL 0.9% Flush) ??3 mL, IV Push, Every 8 hours Nicotine 21 mg / 24 hour Patch (Nicotine Topical) ??21 mg, Topically, Daily Pantoprazole 40 mg EC Tablet (pantoprazole 40 mg oral delayed release tablet) ??40 mg, By Mouth, Daily Remove Patch (Remove ??Patch) ??1 each, Topically, Daily Trazodone 50 mg Tablet (traZODone 50 mg [...] Recent Labs BLOOD COUNT & DIFF WBC 12.0 k/mm3 (High)?? 12/12/2024 03:02 RBC 3.39 m/mm3 (Low)?? 12/12/2024 03:02 Hgb 8.3 Gm/dL (Low)?? 12/12/2024 03:02 Hct 27.4 % (Low)?? 12/12/2024 03:02 MCV 80.8 femtoliters ()?? 12/12/2024 03:02 MCH 24.5 pg (Low)?? 12/12/2024 03:02 MCHC 30.3 Gm/dL (Low)?? 12/12/2024 03:02 Platelet Count 290 k/mm3 ()?? 12/12/2024 03:02 RDW-SD 59.7 femtoliters (High)?? 12/12/2024 03:02 MPV 10.1 femtoliters ()?? 12/12/2024 03:02 Nucleated RBC (Automated) 0.0 #/100 WBC'S ()?? 12/12/2024 03:02 Abs. NRBC 0.0 k/mm3 ()?? 12/12/2024 03:02 Abs. Neut 9.9 k/mm3 (High)?? 12/12/2024 03:02 Abs. Lymph 1.0 k/mm3 ()?? 12/12/2024 03:02 Abs. [place] 0.9 k/mm3 ()?? 12/12/2024 03:02 Abs. Eo 0.1 k/mm3 ()?? 12/12/2024 03:02 Abs. Baso 0.0 k/mm3 ()?? 12/12/2024 03:02 Neut % 82.1 % (High)?? 12/12/2024 03:02 Lymph % 8.4 % (Low)?? 12/12/2024 03:02 [place] % 7.7 % ()?? 12/12/2024 03:02 Eos % 0.7 % ()?? 12/12/2024 03:02 Baso % 0.2 % ()?? 12/12/2024 03:02 Imm Gran 0.9 % ()?? 12/12/2024 03:02 Abs. Imm Gran 0.1 k/mm3 ()?? 12/12/2024 03:02 ?? CARDIAC Nt-Probnp 2076 pg/mL (High)?? 12/12/2024 03:02 High Sensitivity Troponin (HSTnT) 21 ng/L ()?? 12/12/2024 04:44 ?? CHEM GENERAL Sodium 138 mmol/L ()?? 12/12/2024 03:02 Potassium 4.7 mmol/L ()?? 12/12/2024 03:02 Chloride 103 mmol/L ()?? 12/12/2024 03:02 Bicarbonate Level 16 mmol/L (Low)?? 12/12/2024 03:02 Anion Gap 19 mmol/L (High)?? 12/12/2024 03:02 Glucose Level 307 mg/dL (High)?? 12/12/2024 03:02 Glucose, POC 169 mg/dL (High)?? 12/12/2024 08:25 Beta Hydroxybutyrate <0.05 mmol/L ()?? 12/12/2024 03:02 BUN 32 mg/dL (High)?? 12/12/2024 03:02 Creatinine-Blood 2.24 mg/dL (High)?? 12/12/2024 03:02 Estimated GFR Creatinine 35 ML/MIN/1.73 M2 ()?? 12/12/2024 03:02 Calcium 8.0 mg/dL (Low)?? 12/12/2024 03:02 Magnesium 1.5 mg/dL (Low)?? 12/12/2024 03:02 Protein, Total 6.9 Gm/dL ()?? 12/12/2024 03:02 Albumin 3.3 Gm/dL (Low)?? 12/12/2024 03:02 AG Ratio 0.9 ()?? 12/12/2024 03:02 Alkaline Phosphatase 165 units/L (High)?? 12/12/2024 03:02 AST (SGOT) 24 units/L ()?? 12/12/2024 03:02 ALT (SGPT) 16 units/L ()?? 12/12/2024 03:02 Bilirubin, Total <0.2 mg/dL ()?? 12/12/2024 03:02 Lactate 1.1 mmol/L ()?? 12/12/2024 03:02 ?? TOXICOLOGY/TDM Ethanol, Serum or Plasma NONE DETECTED mg/dL ()?? 12/12/2024 03:02 Salicylate Level <0.3 mg/dL (Low)?? 12/12/2024 03:02 Acetaminophen Level <5 mg/L (Low)?? 12/12/2024 03:02 ?? UA/URINALYSIS Appear/Color, Urine LIGHT YELLOW ()?? 12/12/2024 08:50 Specific [place], Urine 1.013 ()?? 12/12/2024 08:50 pH, Urine 6.0 ()?? 12/12/2024 08:50 Albumin, Urine 1+ (Abnormal)?? 12/12/2024 08:50 Glucose, Urine NEGATIVE ()?? 12/12/2024 08:50 Ketones, Urine NEGATIVE ()?? 12/12/2024 08:50 Bilirubin, Urine NEGATIVE ()?? 12/12/2024 08:50 Hemoglobin, Urine NEGATIVE ()?? 12/12/2024 08:50 Nitrite, Urine NEGATIVE ()?? 12/12/2024 08:50 Leukocyte, Urine NEGATIVE ()?? 12/12/2024 08:50 Urobilinogen NORMAL mg/dL ()?? 12/12/2024 08:50 WBC's, Urine <1 /HPF ()?? 12/12/2024 08:50 RBC's, Urine 1 /HPF ()?? 12/12/2024 08:50 Hyaline Cast 1 LPF ()?? 12/12/2024 08:50 ?? VIROLOGY Influenza A PCR NEGATIVE ()?? 12/12/2024 03:10 Influenza B PCR NEGATIVE ()?? 12/12/2024 03:10 RSV PCR NEGATIVE ()?? 12/12/2024 03:10 Adenovirus by PCR NEGATIVE ()?? 12/12/2024 03:10 Coronavirus 229E by PCR (not COVID-19) NEGATIVE ()?? 12/12/2024 03:10 Coronavirus HKU1 by PCR (not COVID-19) NEGATIVE ()?? 12/12/2024 03:10 Coronavirus NL63 by PCR (not COVID-19) NEGATIVE ()?? 12/12/2024 03:10 Coronavirus OC43 by PCR (not COVID-19) POSITIVE (Abnormal)?? 12/12/2024 03:10 Human Metapneumovirus by PCR NEGATIVE ()?? 12/12/2024 03:10 Rhinovirus/Enterovirus by PCR NEGATIVE ()?? 12/12/2024 03:10 Influenza A by PCR NEGATIVE ()?? 12/12/2024 03:10 Influenza B by PCR NEGATIVE ()?? 12/12/2024 03:10 Parainfluenza 1 by PCR NEGATIVE ()?? 12/12/2024 03:10 Parainfluenza 2 by PCR NEGATIVE ()?? 12/12/2024 03:10 Parainfluenza 3 by PCR NEGATIVE ()?? 12/12/2024 03:10 Parainfluenza 4 by PCR NEGATIVE ()?? 12/12/2024 03:10 RSV by PCR NEGATIVE ()?? 12/12/2024 03:10 Bordetella Pertussis by PCR NEGATIVE ()?? 12/12/2024 03:10 Chlamydophila Pneumoniae by PCR NEGATIVE ()?? 12/12/2024 03:10 Mycoplasma Pneumoniae by PCR NEGATIVE ()?? 12/12/2024 03:10 COVID-19 PCR Result NEGATIVE ()?? 12/12/2024 03:10 COVID-19 (SARS-CoV-2) by PCR NEGATIVE ()?? 12/12/2024 03:10 Bordetella Parapertussis by PCR NEGATIVE ()?? 12/12/2024 03:10 ? EKG study * Event Display: ECG 12-Lead Authored Date: Please click on pdf link to open report * Event Display: ECG 12-Lead Authored Date: Ventricular Rate: 95 BPM Atrial Rate: 95 BPM P-R Interval: 134 ms QRS Duration: 74 ms Q-T Interval: 358 ms QTC Calculation(Bazett): 449 ms P [place]: 45 degrees R [place]: 41 degrees T [place]: 53 degrees Normal sinus rhythm Normal ECG When compared with ECG of 06-Dec-2024 11:37, No significant change was found Confirmed by CRISTIANE MONTILLA ([id number]) on 12/12/2024 9:23:16 AM [place]: CRISTIANE MONTILLA Cardiology * Event Display: Cardiac Rhythm Strips Authored Date: * Event Display: Cardiac Rhythm Strips Authored Date: Hospital Progress note * Katie De La Torre RN: PERFORM, SIGN, VERIFY Event Display: Progress Note Hospital Authored Date: Patient: RENU QUIROGA Age: 49 years Sex: Male : 1975 Associated Diagnoses: None Author: Katie De La Torre RN Findings Nursing Data Vital Signs : VITAL SIGNS SECTION 12/16/2024 9:05 EST Early Warning Score 3.00 12/16/2024 9:05 EST Temperature 98.0 DegF Temperature Route Oral Pulse Rate 73 bpm Respiratory Rate 16 br/min Systolic Blood Pressure 157 mm Hg H Diastolic Blood Pressure 76 mm Hg Blood pressure sites Arm, left Mean Arterial Pressure 103 mm Hg Pulse Pressure 81 mm Hg Oxygen Saturation 98 % Mode of Delivery (Oxygen) Room air . Narrative/Incidental Patient transferred to our floor for two hours then discharge orders were entered. Patient is discharging to home with no services. Blood sugars remain elevated but he is on prednisone and he is educated he understands why his sugars are so high. Education provided on low and high blood sugars he is symptomatic when his sugars get too ow or too high. IV pulled. Care plan met. Leaving off of the unit ambulatory.. Discharge Information Pulmonary Rehab Discharge : Pulmonary Rehab Discharge Status 12/12/2024 18:50 EST CPAP/BiPAP Mask Type Full CPAP/BiPAP Mask Size Medium CPAP Pressure 15 cmH2O 12/12/2024 7:03 EST CPAP/BiPAP Mask Type Full CPAP/BiPAP Mask Size Medium 12/12/2024 5:11 EST CPAP/BiPAP Mask Type Full CPAP/BiPAP Mask Size Medium Rehabilitation Discharge : Rehab Discharge Index 12/14/2024 8:46 EST Comments on treatment indicated 49yo M presented with decompensated CHF and worsening kidney function, SOB and LE edema. PT for balance, transfers, amb, strength, safety, functional mob. Rec rehab Distance pt will ambulate 30ft c RW Full chart review completed Yes Hospital course see comment Other findings Low complexity eval Plan of care PT Gait training, Transfer training, Therapeutic exercise, Functional Activities, Balance training * Jaelyn MICHELLE, Adis: PERFORM Event Display: Progress Note Hospital Authored Date: Patient: ??RENU QUIROGA ? Age:??49 Years?Sex:??Male?:??1975?? Subjective Patient seen at bedside this morning. He has no complaints at this time. ?? Current Inpatient glycemic history and management: -Basal insulin:??Lantus??30 units daily -Prandial insulin:??Humalog sliding scale starting at 18 units for blood sugar 100mg/dL??with interval increase of 3 units for every 50mg/dL,??3 times daily AC -Diet:??60 g carbohydrates per meal -Patient is on prednisone 60 Mg daily ?? Glycemic trends reviewed: Patient has blood sugars ranging between??44-426mg/dL in the past 24 hours. His??FBS this morning was 412mg/dL from 296 mg/dL yesterday. He received a total of 30U of??Lantus and??70U of Humalog in the past 24 hours. Objective Vitals & Measurements T:??98.0?F?? TMIN:??97.2?F?? TMAX:??98.3?F?? HR:??73??(Peripheral)?? RR:??16?? BP:??157/76?? SpO2:??98%?? WT:??63.9??kg?? Physical Exam General: age appropriate individual, in no acute distress HEENT: normocephalic, atraumatic, no conjunctival injection, no scleral icterus, moist oral mucosalmembranes Assessment/Plan 49-year-old male with past medical history of type 2 diabetes mellitus, hypertension, HFpEF, COPD, asthma, depression/anxiety, nicotine use disorder currently admitted to the hospital for management of acute hypoxic respiratory failure and acute on chronic HFpEF. [facility] has been consulted for assistance with management of patient's type 2 diabetes mellitus. ?? Type 2 diabetes mellitus Patient is on an OmniPod Dash insulin pump at home. ??He does not have his pump or supplies with him in the hospital. ?Increase Lantus to 40 units daily ??? Increase Humalog sliding scale to start at 18 units for blood sugar 100mg/dL??with interval increase of 3 units for every 50mg/dL,??3 times daily AC ?? If patient is being discharged,??he will need??to place his??insulin pump back on??22 hours after last Lantus dose. He follows with??[facility] in [place]. ??He should schedule an appointment to see them??within 2 weeks of discharge. ?? Plan of care discussed with Dr. Vanessa, addendum to follow. ?? Adis Christy MD PGY V Endocrinology, Diabetes, & Metabolism?? Medications Inpatient Acetaminophen Tablet, 650 mg, By Mouth, Every 4 hours, PRN amLODIPine 10 mg oral tablet, 10 mg, By Mouth, Daily aspirin 81 mg oral delayed release tablet, 81 mg, By Mouth, Daily Dextrose 50% Inj Syringe (25Gm), 12.5 Gm, IV Push Slowly, Every 20 minutes, PRN Dextrose 50% Inj Syringe (25Gm), 25 Gm, IV Push Slowly, Every 15 minutes, PRN Docusate Sodium Capsule, 100 mg= 1 capsule, By Mouth, 2 times a day, PRN Duoneb Inhalation Solution, 1 vials, BAND Nebulizer, 4 times a day escitalopram 10 mg oral tablet, 10 mg, By Mouth, Daily gabapentin 300 mg oral capsule, 300 mg, By Mouth, 3 times a day Glucagon Inj, 1 mg, Intramuscular, Once, PRN Glucose Gel, 15 Gm, By Mouth, Every 20 minutes, PRN Glucose Gel, 30 Gm, By Mouth, Every 20 minutes, PRN Humalog Sliding Scale, 18-33 units, Subcutaneous Injection, 3 times a day before meals Lantus Inj, 40 units= 0.4 mL, Subcutaneous Injection, Daily in AM Lasix Inj, 40 mg= 4 mL, IV Push Slowly, 2 times a day Lipitor 40 mg oral tablet, 40 mg, By Mouth, Daily Lokelma Packet, 10 Gm= 1 pack/packet, By Mouth, Once Melatonin Tablet, 3 mg, By Mouth, Daily at bedtime, PRN MiraLax Powder, 17 Gm= 1 pack/packet, By Mouth, Daily, PRN NaCL 0.9% Flush, 3 mL, IV Push, Every 8 hours NaCL 0.9% Flush, 3 mL, IV Push, Every 8 hours NaCL 0.9% Flush, 3 mL, IV Push, Every 8 hours, PRN Nicotine Topical, 21 mg, Topically, Daily pantoprazole 40 mg oral delayed release tablet, 40 mg, By Mouth, Daily predniSONE 20 mg oral tablet, 60 mg, By Mouth, Daily in AM Remove Patch, 1 each, Topically, Daily Robitussin DM Liquid, 10 mL, By Mouth, Every 4 hours, PRN Senna Tablet, 8.6 mg= 1 tablet, By Mouth, 2 times a day, PRN Simethicone Tablet, 80 mg, Chew, 3 times a day, PRN Toprol XL 100 mg oral tablet, extended [...] 40 mg, By Mouth, Daily at bedtime Lipitor 40 mg oral tablet, 40 mg= [...] 100 mg= 1 tablet, By Mouth, Daily torsemide 20 mg oral tablet, 40 mg= 2 tablet, By Mouth, 2 times a day traZODone 50 mg oral tablet, 100 mg, By Mouth, Daily at bedtime * Otf MICHELLE, Radha Coello: PERFORM Event Display: Progress Note Hospital Authored Date: Attending Attestation:??I have seen and evaluated this patient. ??I have discussed the case and itsmanagement with the fellow and agree with the findings and plan as documented in the fellow???s note. * Natacha Jesus RN: PERFORM, SIGN, VERIFY Event Display: Progress Note Hospital Authored Date: [id number] Patient: RENU QUIROGA Age: 49 years Sex: Male : 1975 Associated Diagnoses: None Author: Natacha Jesus RN Findings Nursing Data Cardiac Data. 12/15/2024 20:30 EST Cardiovascular Symptoms Edema present Skin Temperature Upper Extremities Warm Skin Temperature Lower Extremities Warm Heart Sounds S1, S2 Cardiac Rhythm Normal sinus rhythm Capillary Refill < 3 seconds Ankle, left 1+ trace Ankle, right 1+ trace Pedal, left 1+ trace Pedal, right 1+ trace case monitor Yes Cardiovascular WNL except . Respiratory/Pulmonary Data. : Respiratory/Pulmonary Data. 12/15/2024 20:30 EST Respiratory Symptoms Dyspnea with exertion Respiratory effort Unlabored Chest expansion Symmetrical Accessory Muscles use No Cough No cough Respiratory pattern Regular Left Upper Lobe Breath Sounds Wheezing, expiratory Right Upper Lobe Breath Sounds Wheezing, expiratory Right Middle Lobe Breath Sounds Wheezing, expiratory Left Lower Lobe Breath Sounds Fine crackles Right Lower Lobe Breath Sounds Fine crackles Respiratory distress None Respiratory Treatment(s) Cough and deep breathe Respiratory WNL except . Narrative/Incidental Pt is alert and oriented X4. Pt is normal sinus rhythm on the desk monitor. Pt denies cp or dizziness, endorses sob with exertion. Lung sounds with wheezing and fine crackles, on room air and wearing 2L when sleeping. trace BLE edema present. using urinal. steay gait. acute orders placed Report given to S64 RN. pt transferred to S64.. Discharge Information Pulmonary Rehab Discharge : Pulmonary Rehab Discharge Status 12/12/2024 18:50 EST CPAP/BiPAP Mask Type Full CPAP/BiPAP Mask Size Medium CPAP Pressure 15 cmH2O 12/12/2024 7:03 EST CPAP/BiPAP Mask Type Full CPAP/BiPAP Mask Size Medium 12/12/2024 5:11 EST CPAP/BiPAP Mask Type Full CPAP/BiPAP Mask Size Medium Rehabilitation Discharge : Rehab Discharge Index 12/14/2024 8:46 EST Comments on treatment indicated 49yo M presented with decompensated CHF and worsening kidney function, SOB and LE edema. PT for balance, transfers, amb, strength, safety, functional mob. Rec rehab Distance pt will ambulate 30ft c RW Full chart review completed Yes Hospital course see comment Other findings Low complexity eval Plan of care PT Gait training, Transfer training, Therapeutic exercise, Functional Activities, Balance training Consult note * Shelia MICHELLE, Angelia: MODIFY, PERFORM Event Display: Consultation Note Authored Date: Patient: ??RENU QUIROGA ? Age:??49 Years?Sex:??Male?:??1975?? Reason for Consultation Consult type:BIDS Reason for consultation:hyperglycemia Requesting provider:Fuad EPPERSON, Titi Hunter History of Present Illness ?? 49-year-old male with history of??hypertension, diabetes mellitus on insulin, HFpEF, COPD, asthma,??dyslipidemia, depression, anxiety,??neuropathy, continued tobacco usage??who was recently hospitalized??for sepsis secondary to pneumonia who presents with 1 week of increased lower extremity swelling, pressure??on his chest while breathing??when laying flat,??pain in his??legs related to the swelling??and shortness of breath. He was found to have coronavirus , acute hypoxic respiratory failure and acute on chronic HFpEF exacerbation.?? Bids team consulted for assistance in glycemic management in the setting of steroid use.Patient is currently on isolation for COVID-19 infection and on nasal c annula oxygen ?? Background hx from previous note: Patient has OmniPod with pump??running at 0.05 units/h consistently,Reports to hardly bolus except when sugars are high??.He has had type 2 diabetes for over 12 years and sees endocrinology at [facility] and uses ? Current Inpatient glycemic history and management: -Basal insulin:30units -Prandial insulin:4/100 plus 2/50 -Diet:60g ?? Glycemic trends reviewed: Patient has blood sugars ranging between 110 to 476?? mg/dL in the past 24 hours. His??FBS this morning was 426 mg/dL from 526 mg/dL yesterday. Patient was started on insulin drip yesterday, and was taken off drip at about 6 PM yesterday and transition to basal bolus regimen got a total of 122 units of insulin which included both Lantus and lispro? Physical Exam Vitals & Measurements T:??97.5?F?? TMIN:??97.5?F?? TMAX:??98.1?F?? HR:??74??(Monitored)?? RR:??19?? BP:??146/71?? SpO2:??93%?? Unable to see patient as he is isolated for COVID-19 Assessment/Plan 49-year-old male with history of??hypertension, diabetes mellitus on insulin, HFpEF, COPD, asthma,??dyslipidemia, depression, anxiety,??neuropathy, continued tobacco usage??who was recently hospitalized??for sepsis secondary to pneumonia who presents with 1 week of increased lower extremity swelling, pressure??on his chest while breathing??when laying flat,??pain in his??legs related to the swelling??and shortness of breath. He was found to have coronavirus , acute hypoxic respiratory failure and acute on chronic HFpEF exacerbation.??Bids team consulted for assistance in glycemic management in the setting of steroid use.Patient is currently on isolation for COVID-19 infection? Due to safety, patient was not physically seen, chart review was done as patient is on isolation for COVID-19 ?? Chart patient received Solu-Medrol IV 80 mg on 12/13, 40 mg IV on 12/14 and 40 mg IV this morning.??The cause of his hyperglycemia is likely steroid-induced therefore we will need to use his current TDD to calculate basal bolus regimen.??We will dose 60% of bolus and 40% of basal to help with the steroid- induced hyperglycemia.? Plan: ???Increase Lantus to 50 units from tomorrow in a.m., patient already received 30 units this??StartLantus 20 units daily ???Humalog scale with meals at 18/100+3/50 -Will continue to monitor closely and make further recommendations as needed -Depending on how patient does??on current regimen and how long he will be on high-dose steroids will titrate insulin accordingly ? Plan of care discussed with , addendum to follow. ? Angelia Bass MD PGY IV Endocrinology, Diabetes, & Metabolism? Time spent to chart review and make recommendations 15minutes ?? Problem List/Past Medical History Ongoing No qualifying data Medications Inpatient Acetaminophen Tablet, 650 mg, By Mouth, Every 4 hours, PRN amLODIPine 10 mg oral tablet, 10 mg, By Mouth, Daily aspirin 81 mg oral [...] Gm, By Mouth, Every 20 minutes, PRN Humalog Sliding Scale, 18-33 units, Subcutaneous Injection, 3 times a day before meals Lantus Inj, 50 units= 0.5 mL, Subcutaneous Injection, Daily in AM Lasix Inj, 40 mg= 4 mL, IV Push Slowly, 2 times a [...] mL, IV Push, Every 8 hours, PRN Nicotine Topical, 21 mg, Topically, Daily pantoprazole 40 mg oral delayed release tablet, 40 mg, By Mouth, Daily predniSONE 20 mg oral tablet, 60 mg, By Mouth, Daily in AM Remove Patch, 1 each, Topically, Daily Robitussin DM Liquid, 10 mL, By Mouth, Every 4 hours, PRN Senna Tablet, 8.6 mg= 1 tablet, By Mouth, 2 times a day, PRN Simethicone Tablet, 80 mg, Chew, 3 times a day, PRN Toprol XL 100 mg oral tablet, extended [...] 40 mg, By Mouth, Daily at bedtime Lipitor 40 mg oral tablet, 40 mg= [...] 100 mg= 1 tablet, By Mouth, Daily torsemide 20 mg oral tablet, 40 mg= 2 tablet, By Mouth, 2 times a day traZODone 50 mg oral tablet, 100 mg, [...] influenza virus vaccine, inactivated 07/22/2022 Given * Robert MICHELLE, Suzanna Bowman: PERFORM Event Display: Consultation Note Authored Date: [id number] Attending Attestation:??I have discussed the case and its management with the fellow and agree withthe findings and plan as documented in the fellow???s note. Patient received multiple corrective doses of insulin overnight. This is likely the reason he became hypoglycemic after receiving 18 units for a BG of 110. Going forward, it is recommended to avoid administering multiple corrective doses of insulin overnight, as the adjusted prandial insulin scale should improve his postprandial hyperglycemia secondary high dose steroids. Correction to note below: He received Solu-Medrol 80mg on 12/13/24, 40mg on 12/14/24 and scheduled to get prednisone 60mg daily from today.?? Note * Lam MICHELLE, Stone: PERFORM Event Display: Discharge/Transfer Note Hospital Authored Date: [id number] Patient: ??RENU QUIROGA ? Age:??49 Years?Sex:??Male?:??1975?? Patient Information Discharge Location: A Primary Care Physician: Zari Henry MD Admit Date/Time: 12/12/2024 06:30 Discharge Disposition Discharge Disposition: Home: No Services Discharge Diagnosis Coronavirus infection (B34.2) Respiratory failure, acute (J96.00) Sepsis (A41.9) Chest pain (R07.9) Bilateral leg edema (R60.0) Acute on chronic heart failure with preserved ejection fraction (HFpEF) (I50.33) Acute and chronic respiratory failure with hypoxia (J96.21) Diabetes mellitus (E11.9) Acute hypoxemic respiratory failure (J96.01) Respiratory failure, acute (J96.00) _ Discharge Medications Albuterol (Albuterol (Eqv-Proventil HFA) [...] tablet)??1 tab(s) 10 Milligram By Mouth Daily Gabapentin (gabapentin 300 [...] then repeat cycle up to 4 times PredniSONE (predniSONE 20 mg oral tablet)??2 tab(s) 40 Milligram By Mouth Daily in AM for 4 Days torsemide (torsemide 20 mg oral tablet)??2 tab(s) 40 Milligram By Mouth 2 times a day for 30 Days Trazodone (traZODone 50 mg oral tablet)??100 Milligram By Mouth Daily at bedtime ? Durable Medical Equipment Discharge recommendations: Rehab (12/14/24) CPAP/BiPAP Mask Type: Full (12/12/24) CPAP/BiPAP Mask Size: Medium (12/12/24) Ambulatory devices needed: None (12/13/24) ? Medications Started New medicine Prednisone 40 mg daily for next 4 days Continue taking rest of your home medicines as you are doing prior to admission. ?? Follow-up Follow-up with your primary care provider in about 1 week of discharge. ??Call office for appointment??for posthospital visit.?? Get blood work with CBC, CMP on follow-up. Follow-up with your primary rehab specialist in [place]. ?? Recommendations Go back on your insulin pump tomorrow in the morning??at??your home dose as explained to you by endocrinology Medications Discontinued none Doses Changed none Allergies Allergies ?(Active and Proposed Allergies Only) Trulicity? (Severity: Unknown severity, Onset: Unknown) metFORMIN? (Severity: Unknown severity, Onset: Unknown) ? Hospital Course ?? RENU QUIROGA is a 49-year-old male with history of??hypertension, diabetes mellitus on insulin, HFpEF, COPD, asthma,??dyslipidemia, depression, anxiety,??neuropathy, continued tobacco usage??who was recently hospitalized??for sepsis secondary to pneumonia who presents with 1 week of increased lower extremity swelling, pressure??on his chest while breathing??when laying flat,??pain in his??legs related to the swelling??and shortness of breath. He was found to have coronavirus OC43, acute hypoxic respiratory failure and acute on chronic HFpEF exacerbation.?? Was diuresed with IV Lasix 40 mg twice daily. ??He was also kept on??steroids??with improvement in his??shortness of breath. ??Patient currently on room air.?? Patient uses 2 to 4 L oxygen at bedtime??which she has at home.?? Patient saturating well on room air on 12/16.?? Patient was seen by endocrinology for hyperglycemia. ??Initiallypatient was on insulin drip??which was changed to??subcutaneous Lantus/lispro.?? Patient will go back on his??insulin pump on 12/17.?? Patient will be discharged home with prednisone 40 mg daily for next 4 days. ??He will continue with his torsemide on discharge for diuresis. ?? Acute on chronic?? HFpEF (I50.33):?? Coronavirus infection (B34.2):?? Sepsis (A41.9) Acute and chronic respiratory failure with hypoxia (J96.21) -isolation for coronavirus infection??non-COVID Was kept on prednisone 60 mg daily during hospital stay, changed to prednisone 40 mg daily on discharge which will continue for 4 more days. At baseline nocturnal oxygen between 2-4 L.?? During daytime patient is on room air and currently on room air. Was diuresed with IV Lasix 40 mg twice daily during hospital stay, continue with torsemide on discharge Follow-up outpatient with her primary care provider. ?? Diabetes mellitus (E11.9):? On insulin pump at home. Last admission BIDS recommended: Was initially on insulin drip, transition to subcutaneous insulin Lantus/lispro Resume your insulin pump on 12/17. ?? Mild hyperkalemia Potassium of 5.5 on 12/16 10 mg of Lokelma Recheck??electrolyte with PCP in about a week ?? Anemia acute on chronic, microcytic: No evidence of any active bleeding. follow up with PCP ?? Tobacco Use Treatment:?Requesting nicotine patch, start 21 mg TD daily. ?? CODE STATUS-full code ?? Disposition-discharge home on 12/16 ? Objective as mentioned above ? Measurements?? Height: 165 cm (12/16/24) Weight: 63.9 kg (12/16/24) Dry Weight: 65.8 kg (12/14/24) Body Mass Index: 24.17 kg/m2 (12/14/24) ? Vital Signs?? Temperature: 98 DegF (12/16/24 09:05:00) Temperature Route: Oral (12/16/24 09:05:00) Pulse Rate: 73 bpm (12/16/24 09:05:00) Heart Rate Monitored: 70 bpm (12/16/24 03:00:55) Respiratory Rate: 16 br/min (12/16/24 09:05:00) Systolic Blood Pressure:??157 mm Hg??High (12/16/24 09:05:00) Diastolic Blood Pressure: 76 mm Hg (12/16/24 09:05:00) Blood pressure sites: Arm, left (12/16/24 09:05:00) Mean Arterial Pressure: 103 mm Hg (12/16/24 09:05:00) Pulse Pressure: 81 mm Hg (12/16/24 09:05:00) Oxygen Saturation: 98 % (12/16/24 09:05:00) Liters per Minute: 2 L/min (12/16/24 03:00:00) Mode of Delivery (Oxygen): Room air (12/16/24 09:05:00) Early Warning Score: 3 (12/16/24 09:05:28) ? Perfusion Assessment Capillary Refill: < 3 seconds (12/15/24 20:30:00) Cardiac Rhythm: Normal sinus rhythm (12/16/24 03:00:00) Cardiovascular: WNL except (12/15/24 20:30:00) Cardiovascular Assessment Status: Unchanged from recorder's assessment (12/16/24 00:00:00) Cardiovascular Symptoms: Edema present (12/15/24 20:30:00) Heart Sounds: S1, S2 (12/15/24 20:30:00) Skin Temperature Lower Extremities: Warm (12/15/24 20:30:00) Skin Temperature Upper Extremities: Warm (12/15/24 20:30:00) ? Basic ADLs Activity Assistance: Standby assist (12/13/24) Ambulatory devices needed: None (12/13/24) Assistance w bathing/eating/dressing: No (12/14/24) Feeding Assistance: NPO (12/14/24) Hygiene: Self (12/14/24) Need for Assist w/ Walk/Transfer: No (12/14/24) ? . Physical Exam Constitutional: Alert, in no acute distress. Head EENT: Extraocular muscle movement intact.??Moist mucous membranes.?? Neck: Supple. No JVD. Respiratory: Clear to auscultation. No wheezing or crackles. No use of accessory muscles. Cardiovascular: S1S2 regular. No murmurs, rubs or gallops. Gastrointestinal: Abdomen soft, non-tender, non-distended. Normal bowel sounds. Genitourinary: No CVA tenderness. Extremities: No lower extremity pitting??edema. No cyanosis or clubbing. Neurologic: AAOx3, Speech normal. No focal neurological deficits. Skin: No rash. Psychiatric: Normal mood and affect Pending Results Add On Lab Order ordered on 12/12/2024 Add On Lab Order ordered on 12/12/2024 Add On Lab Order ordered on 12/13/2024 Follow-Up Appointments Added Follow Up ?Time Frame ?Comments Zari Henry MD?1 week: call to discuss follow up visit?Follow-up with your primary care provider in about 1 week of discharge. ??Call office for appointment for posthospital visit. Patient Instructions New medicine Prednisone 40 mg daily for next 4 days Continue taking rest of your home medicines as you are doing prior to admission. ?? Follow-up Follow-up with your primary care provider in about 1 week of discharge. ??Call office for appointment??for posthospital visit.?? Get blood work with CBC, CMP on follow-up. Follow-up with your primary rehab specialist in [place]. ?? Recommendations Go back on your insulin pump tomorrow in the morning??at??your home dose as explained to you by endocrinology Post Discharge Care Diet: ??Diabetic Diet ?? Activity: ??as tolerated ?? Wound Care: ??none ?? Code Status: ??full code ?? Condition: ??stable ?? Prognosis: ??Fair ?? Discharge ?12/16/24 10:28:00 EST ?Order Comment:?? Discharge Prescriptions ?ePrescribed, 12/16/24 10:28:00 EST ?Order Comment:?? Results Discharge Labs BACTERIOLOGY Blood Culture Results Preliminary report ()?? 12/12/2024 03:02 Blood Culture Specimen Source BLOOD ()?? 12/12/2024 03:02 Blood Culture Isolate 1 Comment ()?? 12/12/2024 03:02 Blood Cult 2 Results Preliminary report ()?? 12/12/2024 03:02 Blood Culture 2 Specimen Source BLOOD ()?? 12/12/2024 03:02 Blood Culture 2 Isolate 1 Comment ()?? 12/12/2024 03:02 ?? BLOOD COUNT & DIFF WBC 12.5 k/mm3 (High)?? 12/16/2024 04:37 RBC 3.36 m/mm3 (Low)?? 12/16/2024 04:37 Hgb 8.2 Gm/dL (Low)?? 12/16/2024 04:37 Hct 26.1 % (Low)?? 12/16/2024 04:37 MCV 77.7 femtoliters (Low)?? 12/16/2024 04:37 MCH 24.4 pg (Low)?? 12/16/2024 04:37 MCHC 31.4 Gm/dL (Low)?? 12/16/2024 04:37 Platelet Count 424 k/mm3 ()?? 12/16/2024 04:37 RDW-SD 52.0 femtoliters (High)?? 12/16/2024 04:37 MPV 10.5 femtoliters ()?? 12/16/2024 04:37 Nucleated RBC (Automated) 0.0 #/100 WBC'S ()?? 12/16/2024 04:37 Abs. NRBC 0.0 k/mm3 ()?? 12/16/2024 04:37 Abs. Neut 9.9 k/mm3 (High)?? 12/12/2024 03:02 Abs. Lymph 1.0 k/mm3 ()?? 12/12/2024 03:02 Abs. [place] 0.9 k/mm3 ()?? 12/12/2024 03:02 Abs. Eo 0.1 k/mm3 ()?? 12/12/2024 03:02 Abs. Baso 0.0 k/mm3 ()?? 12/12/2024 03:02 Neut % 82.1 % (High)?? 12/12/2024 03:02 Lymph % 8.4 % (Low)?? 12/12/2024 03:02 [place] % 7.7 % ()?? 12/12/2024 03:02 Eos % 0.7 % ()?? 12/12/2024 03:02 Baso % 0.2 % ()?? 12/12/2024 03:02 Imm Gran 0.9 % ()?? 12/12/2024 03:02 Abs. Imm Gran 0.1 k/mm3 ()?? 12/12/2024 03:02 ?? CARDIAC Nt-Probnp 2076 pg/mL (High)?? 12/12/2024 03:02 High Sensitivity Troponin (HSTnT) 21 ng/L ()?? 12/12/2024 04:44 ?? CHEM GENERAL Sodium 136 mmol/L ()?? 12/16/2024 04:41 Potassium 5.5 mmol/L (High)?? 12/16/2024 04:41 Chloride 102 mmol/L ()?? 12/16/2024 04:41 Bicarbonate Level 22 mmol/L ()?? 12/16/2024 04:41 Anion Gap 12 mmol/L ()?? 12/16/2024 04:41 Glucose Level 450 mg/dL (High)?? 12/16/2024 04:41 Glucose, POC 412 mg/dL (High)?? 12/16/2024 06:59 Beta Hydroxybutyrate 0.08 mmol/L ()?? 12/15/2024 02:06 BUN 43 mg/dL (High)?? 12/16/2024 04:41 Creatinine-Blood 1.35 mg/dL (High)?? 12/16/2024 04:41 Estimated GFR Creatinine 64 ML/MIN/1.73 M2 ()?? 12/16/2024 04:41 Osmolality 324 mOs/kg (High)?? 12/15/2024 02:06 Calcium 8.2 mg/dL (Low)?? 12/16/2024 04:41 Magnesium 1.6 mg/dL ()?? 12/16/2024 04:41 Protein, Total 6.9 Gm/dL ()?? 12/12/2024 03:02 Albumin 3.3 Gm/dL (Low)?? 12/12/2024 03:02 AG Ratio 0.9 ()?? 12/12/2024 03:02 Alkaline Phosphatase 165 units/L (High)?? 12/12/2024 03:02 AST (SGOT) 24 units/L ()?? 12/12/2024 03:02 ALT (SGPT) 16 units/L ()?? 12/12/2024 03:02 Bilirubin, Total <0.2 mg/dL ()?? 12/12/2024 03:02 Lactate 1.1 mmol/L ()?? 12/12/2024 03:02 Iron Level 14 mcg/dL (Low)?? 12/13/2024 09:33 Iron Binding Capacity, Unsaturated 254 mcg/dL ()?? 12/13/2024 09:33 Iron Binding Capacity, Estimated Total 268 mcg/dL ()?? 12/13/2024 09:33 % Iron Saturation 5 % (Low)?? 12/13/2024 09:33 ?? HEME OTHER Hold Blue Top SPECIMEN DISCARDED AFTER 4 HOURS. ()?? 12/12/2024 03:02 ? TOXICOLOGY/TDM Ethanol, Serum or Plasma NONE DETECTED mg/dL ()?? 12/12/2024 03:02 Salicylate Level <0.3 mg/dL (Low)?? 12/12/2024 03:02 Acetaminophen Level <5 mg/L (Low)?? 12/12/2024 03:02 ? UA/URINALYSIS Appear/Color, Urine LIGHT YELLOW ()?? 12/12/2024 08:50 Specific [place], Urine 1.013 ()?? 12/12/2024 08:50 pH, Urine 6.0 ()?? 12/12/2024 08:50 Albumin, Urine 1+ (Abnormal)?? 12/12/2024 08:50 Glucose, Urine NEGATIVE ()?? 12/12/2024 08:50 Ketones, Urine NEGATIVE ()?? 12/12/2024 08:50 Bilirubin, Urine NEGATIVE ()?? 12/12/2024 08:50 Hemoglobin, Urine NEGATIVE ()?? 12/12/2024 08:50 Nitrite, Urine NEGATIVE ()?? 12/12/2024 08:50 Leukocyte, Urine NEGATIVE ()?? 12/12/2024 08:50 Urobilinogen NORMAL mg/dL ()?? 12/12/2024 08:50 WBC's, Urine <1 /HPF ()?? 12/12/2024 08:50 RBC's, Urine 1 /HPF ()?? 12/12/2024 08:50 Hyaline Cast 1 LPF ()?? 12/12/2024 08:50 Hold Urine Culture Testing available 48 hours from time of collection. ()?? 12/12/2024 08:50 ? URINE OTHER Est Creatinine Clearance 56.86 mL/min ()?? 12/16/2024 05:49 ? VIROLOGY Influenza A PCR NEGATIVE ()?? 12/12/2024 03:10 Influenza B PCR NEGATIVE ()?? 12/12/2024 03:10 RSV PCR NEGATIVE ()?? 12/12/2024 03:10 Adenovirus by PCR NEGATIVE ()?? 12/12/2024 03:10 Coronavirus 229E by PCR (not COVID-19) NEGATIVE ()?? 12/12/2024 03:10 Coronavirus HKU1 by PCR (not COVID-19) NEGATIVE ()?? 12/12/2024 03:10 Coronavirus NL63 by PCR (not COVID-19) NEGATIVE ()?? 12/12/2024 03:10 Coronavirus OC43 by PCR (not COVID-19) POSITIVE (Abnormal)?? 12/12/2024 03:10 Human Metapneumovirus by PCR NEGATIVE ()?? 12/12/2024 03:10 Rhinovirus/Enterovirus by PCR NEGATIVE ()?? 12/12/2024 03:10 Influenza A by PCR NEGATIVE ()?? 12/12/2024 03:10 Influenza B by PCR NEGATIVE ()?? 12/12/2024 03:10 Parainfluenza 1 by PCR NEGATIVE ()?? 12/12/2024 03:10 Parainfluenza 2 by PCR NEGATIVE ()?? 12/12/2024 03:10 Parainfluenza 3 by PCR NEGATIVE ()?? 12/12/2024 03:10 Parainfluenza 4 by PCR NEGATIVE ()?? 12/12/2024 03:10 RSV by PCR NEGATIVE ()?? 12/12/2024 03:10 Bordetella Pertussis by PCR NEGATIVE ()?? 12/12/2024 03:10 Chlamydophila Pneumoniae by PCR NEGATIVE ()?? 12/12/2024 03:10 Mycoplasma Pneumoniae by PCR NEGATIVE ()?? 12/12/2024 03:10 COVID-19 PCR Specimen Source NASAL ()?? 12/12/2024 03:10 COVID-19 PCR Result NEGATIVE ()?? 12/12/2024 03:10 COVID-19 (SARS-CoV-2) by PCR NEGATIVE ()?? 12/12/2024 03:10 Bordetella Parapertussis by PCR NEGATIVE ()?? 12/12/2024 03:10 ? Microbiology ?? Blood Culture?? Completed?? Source: Blood Body Site: ?? Collected Dt/Tm: 12/12/2024 03:02 Last Updated Dt/Tm: 12/12/2024 12:11 ?? Blood Culture #2?? Completed?? Source: Blood Body Site: ?? Collected Dt/Tm: 12/12/2024 03:02 Last Updated Dt/Tm: 12/12/2024 12:11 ?? Blood Culture 2 Results?? Completed?? Source: Blood Body Site: ?? Collected Dt/Tm: 12/12/2024 03:02 Last Updated Dt/Tm: 12/12/2024 12:11 ?? Blood Culture Result?? Completed?? Source: Blood Body Site: ?? Collected Dt/Tm: 12/12/2024 03:02 Last Updated Dt/Tm: 12/12/2024 12:11 ?? COVID-19, RSV, and Flu A/B, Rapid PCR?? Completed?? Source: Nasal Body Site: Nose Collected Dt/Tm: 12/12/2024 02:55 Last Updated Dt/Tm: 12/12/2024 04:08 ? 40??minutes spent on discharge * Wil URBINA, Katie: PERFORM Event Display: Patient Education/Instruction Authored Date: [id number] Inpatient Adult Discharge Instructions. [address] [address] Name: RENU QUIROGA : 1975?? Visit: 12/12/2024 06:30?? Current Date: 12/16/2024 11:40 ?? Account: [id number]?? Inpatient Adult Discharge Instructions We would like [...] and their families. Surveys are administered by [employer] ?? If further treatment with your primary care physician or another doctor is recommended, it is important for you to keep the appointment. Call your primary care physician or return to the Emergency Department immediately if your condition worsens, fails to improve, or new symptoms develop. If you need to find a doctor, you can call [facility] for a referral at [phone] or toll free at [phone]) or log in to [email or web address].. ?? [facility], in keeping with [facility] guidance, no longer requires face masks for [...] a health care clarice of your choosing. [employer] is a website that allows you to securely view your medical information including your hospital discharge summary, office visit summaries, medications and follow-up visits. You can also request appointments, renew medications, and request access to your medical information using a health care clarice of your choosing, or just ask a question. You can enroll at [email or web address] or register during your next office visit. You have been discharged from [facility] Home, Patient Care Unit: D6A??. If you have any questions regarding these instructions, including results of studies pending, afteryou leave, please call us and we will be happy to assist you 22/05. [facility] Your Care Team Attending Physician Stone Fritz MD?? Consulting Providers Stone Fritz MD?? Discharging Providers Stone Fritz MD Reason for Your Visit Coming from respite home, recovering from pneumonia. Woke up feeling SOB with chest pressure. Recent PNM and sepsis diagnosis. Has BL LE edema. Endorses fever/chills and diaphoresis. Pale.?? Your Diagnosis Acute and chronic respiratory failure with hypoxia Acute hypoxemic respiratory failure Acute on chronic heart failure with preserved ejection fraction (HFpEF) Diabetes mellitus Tests Performed Below is a partial list of the tests performed during your hospitalization. You may have had other tests and procedures not included in this list. Please discuss all test results with your provider. ACETAMINOPHEN Basic Metabolic Panel Beta Hydroxybutyrate Blood Culture Blood Culture #2 Blood Culture 2 Results Blood Culture Result Calcium Level CBC CBC w/ Differential Comprehensive Metabolic Panel COVID-19, RSV, and Flu A/B, Rapid PCR Electrolytes ETHANOL Glucose Level GLUCOSE POC High??Sensitivity??Troponin T Hold Blue Top Tube IRON & TIBC Lactate Level Magnesium Level Mg Level Osmolality ProBNP RESP PATH PANEL W/COVID-19 SALICYLATE Urinalysis w/hold for Urine Culture XR Chest 2 Views Frontal and Lat Acetaminophen Level (ACETAMINOPHEN)?? Add On Lab Order?? B Type Natriuretic Peptide (NT-proBNP) (ProBNP)?? Basic Metabolic Panel?? Beta Hydroxybutyrate?? Blood Culture?? Blood Culture #2?? Blood Culture 2 Results?? Blood Culture Result?? CBC?? CBC w/ Differential?? COVID-19, RSV, and Flu A/B, Rapid PCR?? Calcium Level?? Comprehensive Metabolic Panel?? Electrolytes?? Ethanol Level (ETHANOL)?? Glucose Level?? Glucose POC?? High??Sensitivity??Troponin T?? Hold Blue Top Tube?? Iron + Iron Binding Capacity (IRON & TIBC)?? Lactic Acid Level (Lactate Level)?? Magnesium Level (Mg Level)?? Osmolality?? Respiratory Pathogen PCR with COVID-19 (RESP PATH PANEL W/COVID-19)?? Salicylate Level (SALICYLATE)?? Urinalysis w/hold for Urine Culture?? Chest 2 Views Frontal and Lat (XR Chest 2 Views Frontal and Lat)?? Primary Care Provider Zari Henry MD? Advance Directive Health Care Proxy on File Yes - Health Care Proxy Discharge Vitals Temperature: 98 DegF Height: 165 cm Pulse Rate: 72 bpm Weight: 63.9 kg Respiratory Rate: 16 br/min Body Mass Index: 24.17 kg/m2 Systolic Blood Pressure:??157 mm Hg??High Body surface area: 1.74 Systolic Blood Pressure:??157 mm Hg??High ?? Diastolic Blood Pressure: 76 mm Hg ?? Diastolic Blood Pressure: 76 mm Hg ?? Oxygen Saturation: 98 % ?? Studies Pending All studies ordered during this hospital stay have been completed unless listed below. Please discuss all pending results with your provider listed above in these instructions. ?? Add On Lab Order?? What to do next Instructions From Your Doctor New medicine Prednisone 40 mg daily for next 4 days Continue taking rest of your home medicines as you are doing prior to admission. ?? Follow-up Follow-up with your primary care provider in about 1 week of discharge. ??Call office for appointment??for posthospital visit.?? Get blood work with CBC, CMP on follow-up. Follow-up with your primary rehab specialist in [place]. ?? Recommendations Go back on your insulin pump tomorrow in the morning??at??your home dose as explained to you by endocrinology ?? Orders??:Diabetic Diet :as tolerated Care:none Status:full code :stable :Fair? 12/16/24 10:28:00 EST?? Prescriptions??, ??12/16/24 10:28:00 EST?? You Need to Schedule the Following Appointments Follow Up with??Zari Henry MD When:??Within 1 week: call to discuss follow up visit Why: Follow-up with your primary care provider in about 1 week of discharge. ??Call office for appointment for posthospital visit. Where: [address] [place] [address]- Discharge Medications RENU QUIROGA :1975 Visit Date:12/12/2024 Medications: Please continue your medications until treatment is completed or stopped by your provider. Medications not listed below should be discontinued. Discuss any questions related to medications with your provider. What How Much When Instructions Next Dose New PredniSONE (predniSONE 20 mg oral tablet) 2 tab(s) Oral Daily in the morning Duration: 4 Days Pickup at [place] [address] 12/17 9am Unchanged Albuterol (Albuterol (Eqv-Proventil HFA) 90 mcg/ inh inhalation aerosol) 2 puff(s) Inhalation Every 6 hours every 6 hours Unchanged Amlodipine (amLODIPine 10 mg oral tablet) 1 tab(s) Oral Daily 12/17 9am Unchanged Aspirin (aspirin 81 mg oral delayed release tablet) 1 tab(s) Oral Daily 12/17 9am Unchanged Atorvastatin (Lipitor 40 mg oral tablet) 1 tab(s) Oral Daily 12/17 9am Unchanged Escitalopram (escitalopram 10 mg oral tablet) 1 tab(s) Oral Daily 12/17 9am Unchanged Gabapentin (gabapentin 300 mg oral capsule) 1 capsule Oral 3 times a day 12/16 3pm Unchanged Insulin Glargine (Lantus 100 u/ ml subcutaneous solution) sliding scale Unchanged Metoprolol (Toprol XL 100 mg oral tablet, extended release) 1 tab(s) Oral Daily 12/17 9am Unchanged Nicotine (nicotine 21 mg/ 24 hr transdermal film, extended release) 1 patch(es) Topically Daily 12/17 9am Unchanged Nitroglycerin (nitroglycerin 0.3 mg sublingual tablet) See instructions 1 tablet Sublingual, take PRN for chest pain (if you need to take >1, call PCP), As needed for for chest pain ?? as needed Unchanged Pantoprazole (pantoprazole 40 mg oral delayed release tablet) 40 Milligram Oral Daily Duration: 30 Days 12/17 9am Unchanged Podofilox Topical (podofilox 0.5% topical solution) 1 clarice Topically Twice a day use for 3 days, withhold for 4 days, then repeat cycle up to 4 times ?? 12/16 9pm Unchanged Sucralfate (sucralfate 1 gm oral tablet) 4x a day Unchanged torsemide (torsemide 20 mg oral tablet) 2 tab(s) Oral Twice a day Duration: 30 Days 12/16 9pm Unchanged Trazodone (traZODone 50 mg oral tablet) 100 Milligram Oral Daily at Bedtime 12/16 9pm Pharmacy Information [facility] 3: [address], [place] [id number] [phone] ?? What How Much When Comments Stop Taking Furosemide (Lasix 20 mg oral tablet) 40 Milligram Oral Daily at Bedtime Prescription Given During Visit PredniSONE (predniSONE 20 mg oral tablet) - 2 tablet = 40 mg, By Mouth, Daily in AM, # 8 tablet, 0 Refills, [facility] [address], [address] [place] [phone]?? Laboratory Results Below is a partial list of the most recent Laboratory test results done prior to this discharge. You may have had other tests and procedures not included in this list. Please discuss all test resultswith your provider. Est Creatinine Clearance - 56.86 mL/min (12/16/2024) ACETAMINOPHEN (12/12/2024) ? ?Acetaminophen Level - <5 mg/L Basic Metabolic Panel (12/16/2024) ???Sodium - 136 mmol/L???Potassium - 5.5 mmol/L???Chloride - 102 mmol/L???Bicarbonate Level - 22 mmol/L???Anion Gap - 12 mmol/L???Glucose Level - 450 mg/dL???BUN - 43 mg/dL???Creatinine-Blood - 1.35 mg/dL???Estimated GFR Creatinine - 64 ML/MIN/1.73 M2???Calcium - 8.2 mg/dL Beta Hydroxybutyrate (12/15/2024) ???Beta Hydroxybutyrate - 0.08 mmol/L Blood Culture (12/12/2024) ???Blood Culture Results - Preliminary report???Blood Culture Specimen Source - BLOOD Blood Culture #2 (12/12/2024) ???Blood Cult 2 Results - Preliminary report???Blood Culture 2 Specimen Source - BLOOD Blood Culture 2 Results (12/12/2024) ???Blood Culture 2 Isolate 1 - Comment Blood Culture Result (12/12/2024) ???Blood Culture Isolate 1 - Comment Calcium Level (12/14/2024) ???Calcium - 8.7 mg/dL CBC (12/16/2024) ???WBC - 12.5 k/mm3???RBC - 3.36 m/mm3???Hgb - 8.2 Gm/dL???Hct - 26.1 %???MCV - 77.7 femtoliters???MCH - 24.4 pg???MCHC - 31.4 Gm/dL???Platelet Count - 424 k/mm3???RDW-SD - 52.0 femtoliters???MPV - 10.5 femtoliters???Nucleated RBC (Automated) - 0.0 #/100 WBC'S???Abs. NRBC - 0.0 k/mm3 CBC w/ Differential (12/12/2024) ???WBC - 12.0 k/mm3???RBC - 3.39 m/mm3???Hgb - 8.3 Gm/dL???Hct - 27.4 %???MCV - 80.8 femtoliters???MCH - 24.5 pg???MCHC - 30.3 Gm/dL???Platelet Count - 290 k/mm3???RDW-SD - 59.7 femtoliters???MPV - 10.1 femtoliters???Nucleated RBC (Automated) - 0.0 #/100 WBC'S???Abs. NRBC - 0.0 k/mm3???Abs. Neut - 9.9 k/mm3???Abs. Lymph - 1.0 k/mm3???Abs. [place] - 0.9 k/mm3???Abs. Eo - 0.1 k/mm3???Abs. Baso - 0.0 k/mm3???Neut % - 82.1 %???Lymph % - 8.4 %???[place] % - 7.7 %???Eos % - 0.7 %???Baso % - 0.2 %???Imm Gran - 0.9 %???Abs. Imm Gran - 0.1 k/mm3 Comprehensive Metabolic Panel (12/12/2024) ???Sodium - 138 mmol/L???Potassium - 4.7 mmol/L???Chloride - 103 mmol/L???Bicarbonate Level - 16 mmol/L???Anion Gap - 19 mmol/L???Glucose Level - 307 mg/dL???BUN - 32 mg/dL???Creatinine-Blood - 2.24 mg/dL???Estimated GFR Creatinine - 35 ML/MIN/1.73 M2???Calcium - 8.0 mg/dL???Protein, Total - 6.9 Gm/ dL???Albumin - 3.3 Gm/dL???AG Ratio - 0.9???Alkaline Phosphatase - 165 units/L???AST (SGOT) - 24 units/L? ?ALT (SGPT) - 16 units/L? ?Bilirubin, Total - <0.2 mg/dL COVID-19, RSV, and Flu A/B, Rapid PCR (12/12/2024) ???Influenza A PCR - NEGATIVE???Influenza B PCR - NEGATIVE???RSV PCR - NEGATIVE???COVID-19 PCR Specimen Source - NASAL???COVID-19 PCR Result - NEGATIVE Electrolytes (12/14/2024) ???Sodium - 140 mmol/L???Potassium - 4.7 mmol/L???Chloride - 106 mmol/L???Bicarbonate Level - 21 mmol/L???Anion Gap - 13 mmol/L ETHANOL (12/12/2024) ???Ethanol, Serum or Plasma - NONE DETECTED Glucose Level (12/14/2024) ???Glucose Level - 215 mg/dL GLUCOSE POC (12/16/2024) ???Glucose, POC - 412 mg/dL High??Sensitivity??Troponin T (12/12/2024) ???High Sensitivity Troponin (HSTnT) - 21 ng/L Hold Blue Top Tube (12/12/2024) ???Hold Blue Top - SPECIMEN DISCARDED AFTER 4 HOURS. IRON & TIBC (12/13/2024) ???Iron Level - 14 mcg/dL???Iron Binding Capacity, Unsaturated - 254 mcg/dL???Iron Binding Capacity, Estimated Total - 268 mcg/dL???% Iron Saturation - 5 % Lactate Level (12/12/2024) ???Lactate - 1.1 mmol/L Magnesium Level (12/14/2024) ???Magnesium - 1.9 mg/dL Mg Level (12/16/2024) ???Magnesium - 1.6 mg/dL Osmolality (12/15/2024) ???Osmolality - 324 mOs/kg ProBNP (12/12/2024) ???Nt-Probnp - 2076 pg/mL RESP PATH PANEL W/COVID-19 (12/12/2024) ???Adenovirus by PCR - NEGATIVE???Coronavirus 229E by PCR (not COVID-19) - NEGATIVE???Coronavirus HKU1 by PCR (not COVID-19) - NEGATIVE???Coronavirus NL63 by PCR (not COVID-19) - NEGATIVE???Coronavirus OC43 by PCR (not COVID-19) - POSITIVE???Human Metapneumovirus by PCR - NEGATIVE???Rhinovirus/Enterovirus by PCR - NEGATIVE???Influenza A by PCR - NEGATIVE???Influenza B by PCR - NEGATIVE???Parainfluenza 1 by PCR - NEGATIVE???Parainfluenza 2 by PCR - NEGATIVE???Parainfluenza 3 by PCR - NEGATIVE???Parainfluenza 4 by PCR - NEGATIVE???RSV by PCR - NEGATIVE???Bordetella Pertussis by PCR - NEGATIVE??? Chlamydophila Pneumoniae by PCR - NEGATIVE???Mycoplasma Pneumoniae by PCR - NEGATIVE???COVID-19 (SARS-CoV-2) by PCR - NEGATIVE???Bordetella Parapertussis by PCR - NEGATIVE SALICYLATE (12/12/2024) ? ?Salicylate Level - <0.3 mg/dL Urinalysis w/hold for Urine Culture (12/12/2024) ???Appear/Color, Urine - LIGHT YELLOW???Specific [place], Urine - 1.013???pH, Urine - 6.0???Albumin, Urine - 1+???Glucose, Urine - NEGATIVE???Ketones, Urine - NEGATIVE???Bilirubin, Urine - NEGATIVE???Hemoglobin, Urine - NEGATIVE???Nitrite, Urine - NEGATIVE???Leukocyte, Urine - NEGATIVE???Urobilinogen - NORMAL? ?WBC's, Urine - <1 /HPF? ?RBC's, Urine - 1 /HPF? ?Hyaline Cast - 1 LPF? ?Hold Urine Culture - Testing available 48 hours from time of collection. You will be contacted within 72 hours with your results. Allergies (NKA means No Known Allergies) Trulicity metFORMIN Problems No qualifying data available Education Materials Below is the list of Educational Leaflet Providered with your Discharge Instructions. Valuables and Belongings I fully understand and agree that [facility] accepts no responsibility for all my [...] to send valuables and belongings home. ?? Date for Pt to Sign Valuables/Belongings: 12/16/24 03:43:00 ?? Other Discharge Information ? Pulmonary Rehab Status?? Pulmonary Rehab Discharge Status?? CPAP/BiPAP Mask Type: Full CPAP/BiPAP Mask Size: Medium Respiratory Rate: 16 br/min ? Common Emergency Awareness Tips IS [...] are strongly encouraged to quit. Please call [facility] at [phone] or [phone] ([phone]) or log in to [email or web address] for referrals to smoking cessation programs. ?? 749 Suicide & Crisis Lifeline is available 22/05 if you or someone you know needs to find a reason to keep living. By calling 084 you'll be connected to a skilled, trained counselor at a crisis center in your area. INPATIENT DISCHARGE INSTRUCTIONS SIGNATURE RENU STARKEY Location:[facility] Registration Date and Time:12/12/2024 06:30 EST Primary Care Physician: Zari Henry MD, Attending Physician: Stone Fritz MD, I RENU QUIROGA, have received the above patient education materials/instructions and have verbalized understanding. If ambulance or transport services are being used I further acknowledge being givena choice of service. ?? If you need to contact me, please call me at this number: . Patient/Energy Conservation Technician Name: Patient/Energy Conservation Technician Signature: Relationship to Patient: Witness Name/Signature: Date: Patient Care team information Care Team Personnel Name: Rachel Williamson RN Position: [facility] RN Member Role: Primary Care Nurse Name: Feliberto Sosa RN Position: S RN Member Role: Primary Care Nurse Name: Becky Hawkins RN Position: S RN Member Role: Primary Care Nurse Name: Ana Hunter RN Position: S RN Member Role: Primary Care Nurse Name: May Lo RN Position: S RN Member Role: Primary Care Nurse Name: Shelley Emmanuel RN Position: S RN Member Role: Primary Care Nurse Name: Junaid RNCesar Position: S RN Member Role: Primary Care Nurse Name: Jessy Abad RN Position: S RN Member Role: Primary Care Nurse Name: Zari Henry MD Position: [facility] Physician - Primary Care Member Role: PCP Address: [address] [place] [id number] Telecom: Care Team Related Persons Name: VELMA ASIF Insurance Providers Guarantor name: [employer] Health Plan Information #: 1 Payer: [employer] Member Number: [id number] Policy Number: DELMIS Group Number: [facility] Health Plan Information #: 2 Payer: [employer] Member Number: [id number] Policy Number: DELMIS Group Number: [id number]
--- OUTSIDE RECORDS SUMMARY | 2024-12-20 10:39 | XMS_ITS | Clinical Summary ---
Author Organization [facility] Address [address] [place] [address] Care Team Providers Care Licensing Worker Name Role Phone Zari Henry MD Primary Care Provider [phone] Allergies Active Allergy Reactions Criticality Noted Date [...] age to complete this topic Care Teams Licensing Worker Relationship Specialty Start Date End Date Zari Henry MD PCP - General Internal Medicine 01/21/22
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
--- OUTSIDE RECORDS SUMMARY | 2024-12-20 10:39 | XMS_ITS | Clinical Summary ---
Author Organization [facility] Address [address] [address] Phone Care Team Providers Care Volunteer Fire Fighter Name Role Phone Zari Henry MD Primary Care Provider [phone] Allergies Active Allergy Reactions Criticality Noted Date [...] evening and 50 mg before bedtime. Active Umeclidinium-Noel nterol (Anoro Ellipta) 62.5-25 MCG/ACT aerosol powder Inhale [...] day Do not crush or chew. Active Magnesium 400 MG tablet Take by mouth Active aspirin (ST VIVEK) 81 MG EC tablet Take 81 mg by mouth 1 (one) time each day Active cephalexin (KEFLEX) 500 MG capsule take 1 capsule by mouth four times a day for 7 days 12/08/19 25 Active torsemide (DEMADEX) 20 MG tablet Take 40 mg by mouth 12/08/19 25 025 Active losartan (Cozaar) 25 MG tablet Take 1 tablet (25 mg total) by mouth 1 (one) time each day 30 tablet 11 12/11/19 25 026 Active furosemide (LASIX) 40 MG tablet Take 40 mg by mouth in the morning and 40 mg in the evening. 025 Discontinued Active Problems Problem Noted Date [...] Hyperlipidemia 01/31/2017 Type 2 diabetes mellitus 01/31/2017 Encounters Date Type Department Care Team Description 12/11/2024 3:00 PM EST Office Visit [facility] [address] [place] [phone] Jong Hall MD Stage 3 chronic kidney disease, not otherwise specified (HCC) (Primary Dx); Hypertension; Diabetes mellitus, not otherwise specified (HCC); Heart failure with normal ejection fraction (HCC); Other proteinuria from Last 3 Months Immunizations Name Administration Dates Next Due Influenza, [...] on file Sexual Orientation Not on file Last Filed Vital Signs Vital Sign Reading Time Taken Comments Blood Pressure 110/54 12/11/2024 3:02 PM EST Pulse 50 12/11/2024 3:02 PM EST Temperature - - Respiratory Rate - - Oxygen Saturation - - Inhaled Oxygen Concentration - - Weight 66.7 kg (147 lb) 12/11/2024 3:02 PM EST Height - - Body Mass Index - - Plan of Treatment Upcoming Encounters Date Type Department Care Team (Late st Contact Info) Description 01/27/2025 2:30 PM EDT Office [facility] [address] [phone] oJng Hall MD [address] [phone] Health Maintenance Due Date Last Done Comments [...] 07/16/2024, , 07/22/2022, Additional history exists Insurance Care Teams Volunteer Fire Fighter Relationship Specialty Start Date End Date Zari Henry MD [address] [place] [id number] PCP - General Internal Medicine 12/09/24
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
--- OUTSIDE RECORDS SUMMARY | 2024-12-20 10:39 | XMS_ITS | Encounter Summary ---
Author Organization [facility] [place] [address] Care Team Providers Care Brood Station Manager Name Role Phone Zari Henry MD Primary Care Provider [phone] Reason for Visit * Reason Onset Date Comments VNA CALL 12/06/2024 Encounter Details Date Type Department Care Team (Late st Contact Info) Description 12/06/2024 Telephone [facility] [place] [address] [place] [address] Lea Alex PA [address] [place] [address] VNA CALL Social History Tobacco Use Types [...] Shelbi RN VNA [place] [facility] [facility] treated for PNA and pain CHF not addressed Per Shelbi URBINA +SB, increase in weight despite increase in Lasix, elevated BS She sent him to [facility] this am Pt sts his Omni pod [...] can please prescribe a new Omnipod to [facility]. She states his pump is working, but he has no way to track it. She also states that patient was recently hospitalized in both [facility], and was discharged with Lantus, 10 units daily. Shelbi states they do no t have an rx for Lantus. Advised pt was last seen in July. She states she just sent patient to [facility], due to elevated sugar & he has an infection. She thinks it may be best for patient to be seen in office when he is discharged, but in the meantime is concerned about the Omnipod. Shelbi ballard reached at [phone] Was CONTACT Telephone # obtained above?: yes documented in this encounter Plan of Treatment Upcoming Encounters Date Type Department Care Team (Late st Contact Info) Description 12/24/2024 10:30 AM EST Office Visit Adult Medicine [address] [phone] Zari Henry MD [address] [place] [address] 01/17/2025 4:20 PM EDT Office Visit [address] [place] [address] Lea Alex PA [address] [place] [address] 03/07/2025 2:00 PM EDT Office Visit Pulmonolgy - [facility] [address] [phone] Nisa Machado MD [address] [address] 06/10/2025 12:00 PM EDT Office Visit Neph[facility] - [facility] [address] [facility] [place] [phone] Jong Hall MD [address] [phone] documented as of this encounter Visit Diagnoses Not on filedocumented in this encounter Care Teams Brood Station Manager Relationship Specialty Start Date End Date Zari Henry MD [address] [place] [address] PCP - General Internal Medicine 08/17/21 documented as of this encounter
--- OUTSIDE RECORDS SUMMARY | 2024-12-20 10:39 | XMS_ITS | Encounter Summary ---
Author Organization [facility] Address [address] [place] [address] Care Team Providers Care Apartment Maintenance Worker Name Role Phone Zari Henry MD Primary Care Provider [phone] Reason for Visit * Reason Comments [place] [facility] [place] Diabetes Fsbs 267 Hyperlipidemia Encounter Details Date Type Department Care Team (Late st Contact Info) Description 12/05/2024 10:30 AM EST Office Visit Adult Medicine [address] [phone] Zari Henry MD [address] [place] [address] Acute on chronic right-sided congestive heart failure [...] Chief Complaint Patient presents with [place] [facility] [place]24-11[place]29/2024 Diabetes Fsbs 267 Hyperlipidemia IDENTIFIER: Ciara [...] mellitus), type 2 with peripheral vascular complications [place] 12/05/2024 MAGDA (iron deficiency anemia) 04/06/2023 Requires supplemental oxygen 04/06/2023 CHF (congestive heart failure) ([facility] 01/06/2023 Obstructive sleep apnea syndrome 05/09/2022 Adrenal mass ([facility] 03/24/2022 Claudication of both lower extremities ([facility] 12/27/2021 Sleep related hypoxia 08/17/2021 Asthma-COPD overlap syndrome ([facility] 08/17/2021 Microscopic hematuria 12/25/2020 Condyloma acuminata 11/18/2020 PAD (peripheral artery disease) ([facility] 02/21/2020 Polycythemia 06/04/2018 Anxiety 08/01/2017 Microalbuminuria 04/14/2017 [...] any pneumonia. He is presently living in [facility] and looking for housing, last glycohemoglobin [...] 10:30 AM EST Office Visit Adult Medicine [facility] - [address] [phone] Zari Henry MD [address] [place], [place] 01/17/2025 4:20 PM EDT Office Visit Endocrinology - [address] [phone] Lea Alex PA [address] [place], [place] 03/07/2025 2:00 PM EDT Office Visit Pulmonolgy - [place] [address] [phone] Nisa Machado MD [address] [address] 06/10/2025 12:00 PM EDT Office Visit Nephrology - [address] [phone] Jong Hall MD 3550 [facility] [address] [place] [phone] documented as of this encounter Visit Diagnoses [...] 12/05/2024 added in this encounter Care Teams Apartment Maintenance Worker Relationship Specialty Start Date End Date Zari Henry MD [address] [place] [address] PCP - General Internal Medicine 08/17/21 documented as of this encounter
--- OUTSIDE RECORDS SUMMARY | 2024-12-20 10:39 | XMS_ITS | Encounter Summary ---
Author Organization [facility] [place] [address] Care Team Providers Care Software Test And Validation Engineer Name Role Phone Zari Henry MD Primary Care Provider [phone] Reason for Visit * Reason Onset Date Comments MEDICATION 12/17/2024 Encounter Details Date Type Department Care Team (Late st Contact Info) Description 12/17/2024 Telephone [facility] [place] [address] [place] [address] Lea Alex PA [address] [place] [address] MEDICATION Social History Tobacco Use Types Packs/Day Years [...] as of this encounter Progress Notes * Dodie Hayden MA - 12/17/2024 4:10 PM EST Called pt to let him know, no answer so I LVM with the following info. * SACHI Antony - 12/17/2024 3:43 PM EST Per my last note, patient should be on insulin pump. I would like to review discharge summary before prescribing insulin pens. In the meantime, I would like him to continue with vials. He is scheduled to see PCP next week * Dodie Hayden MA - 12/17/2024 3:37 PM EST GABRIELLE 08/08/24 NOV 01/17/25 Pts nurse requesting lantus pens instead of vials because of the pts sight. Pt was in the hospiatl but not anymore he was discharged and they gave him lantus 15 units but in vials. She is also requesting the needles but not in pts chart. * Pooja East - 12/17/2024 1:46 PM EST Refills not on Current Medication List Patient would like script to be: E-PRESCRIBED/FAXED TO PHARMACY BY THE END OF THE DAY One or some of the medications requested were on the HISTORICAL MED list PREFERRED PHARMACY: [facility] [place] [address] [facility] [address] [phone] Med name: Lantus Dosage: N/A # of tablets: N/A Instructions: Pt nurse Shelbi calling stating pt was admitted into [facility] last and is home now. The hospital gave pt lantus, 15 units. They sent the pt home with vials, but he is having difficulties because of his sight. Pt nurse is requesting lantus pen and needles. If any further questions please call pt nurse at [phone]. Patient wants: 30-day supply Is this a mail order prescription request?: no Did you check the Pharmacy information above?: yes Patients current insurance carrier is: Payor: [employer] / Plan: [employer] MEDICAID / Product Type: *No Product type* / Insurance ID #: @[email or web address]@ documented in this encounter Plan of Treatment Upcoming Encounters Date Type Department Care Team (Late st Contact Info) Description 12/24/2024 10:30 AM EST Office Visit Adult Medicine [address] [phone] Zari Henry MD [address] [place] [address] 01/17/2025 4:20 PM EDT Office Visit Endocrinology [address] [phone] Lea Alex PA [address] [place], [place] 03/07/2025 2:00 PM EDT Office Visit Pulmonolgy - [facility] [address] [phone] Nisa Machado MD [address] [address] 06/10/2025 12:00 PM EDT [facility] [address] [facility] [place] [address] Jong Hall MD 2000 [facility] [address] [place] [phone] documented as of this encounter Visit Diagnoses Not on filedocumented in this encounter Care Teams Software Test And Validation Engineer Relationship Specialty Start Date End Date Zari Henry MD [address] [place] [address] PCP - General Internal Medicine 08/17/21 documented as of this encounter
== END 2024-12-20 11:01 | disposition home or self-care (01) ==
PROVIDERS: PCP Internal Medicine; Visit Provider Nurse Practitioner Family
DX: I13.0 Hypertensive heart and chronic kidney disease with heart failure and stage 1 through stage 4 chronic kidney disease, or unspecified chronic kidney disease (principal); I50.33 Acute on chronic diastolic (congestive) heart failure; N18.1 Chronic kidney disease, stage 1; G47.33 Obstructive sleep apnea (adult) (pediatric); R60.9 Edema, unspecified; Z09 Encounter for follow-up examination after completed treatment for conditions other than malignant neoplasm
CPT/HCPCS: 99214; G2211

== ENCOUNTER → 2024-12-20 09:56 | Outpatient (BNVA) | payer OTHER, SELFPAY | PROVIDERS: PCP Internal Medicine; Visit Provider Nurse Practitioner Family | DX: Z09 Encounter for follow-up examination after completed treatment for conditions other than malignant neoplasm (principal); I13.0 Hypertensive heart and chronic kidney disease with heart failure and stage 1 through stage 4 chronic kidney disease, or unspecified chronic kidney disease; I50.33 Acute on chronic diastolic (congestive) heart failure; N18.1 Chronic kidney disease, stage 1; G47.33 Obstructive sleep apnea (adult) (pediatric); R60.9 Edema, unspecified | CPT/HCPCS: 99212 ==

== ENCOUNTER 2025-01-14 02:30 | Inpatient (IN) | payer OTHER, SELFPAY ==
[2025-01-14] VITALS (11 sets, daily range): BP systolic 106–152; BP diastolic 54–72; PULSE 71–86; RESP 16–20; TEMP 36.7–37.1; O2SAT 84–98; BMI 26.5; BMI 24.9
--- NOTE | 2025-01-14 | ECG_ITS ---
Test Reason : DYSPNEA Blood Pressure : */* mmHG Vent. Rate : 81 BPM Atrial Rate : 81 BPM P-R Int : 150 ms QRS Dur : 86 ms QT Int : 402 ms P-R-T Axes : 49 49 64 degrees QTcB Int : 466 ms Normal sinus rhythm Normal ECG When compared with ECG of 19-Nov-2024 20:31, Vent. rate has decreased by [address] no longer depressed in Anterior leads T wave inversion no longer evident in Inferior leads T wave inversion no longer evident in Anterolateral leads Referred By: Generic ED Physician Electronically Signed By: Sadiq Rivera
--- NOTE | ~2025-01-14 | XR_ITS ---
CLINICAL HISTORY: r o pulm edema, sob, hx chf CHEST X-RAY FRONTAL VIEW COMPARISON: 11/19/2024. FINDINGS: A single frontal view of the chest was performed. Cardiac silhouette is accentuated by the portable technique. Mild elevation of the right hemidiaphragm is again noted. Linear atelectasis is noted within the right mid lung. An area of atelectasis versus infiltrate is noted within the left mid lung. There is also mild linear atelectasis in the left lower lung. No consolidation or pleural effusion. No pneumothorax. IMPRESSION: 1. Linear atelectasis in the right mid lung. An area of atelectasis versus infiltrate is noted in the left mid lung. CT chest can be considered for a more accurate assessment. 2. No consolidation or pleural effusion. This document has been electronically signed by: Bryant Schwartz M.D. on 01/14/2025 05:41:34
--- NOTE | ~2025-01-14 | CT_ITS ---
EXAMINATION: CT CHEST WITHOUT CONTRAST CLINICAL INFORMATION: Hypoxia. COMPARISON: November 19, 2024. TECHNIQUE: Multidetector volumetric CT imaging of the chest was done. Axial MIP volume rendering provided. Sagittal and coronal reformatted images were obtained. This CT examination was performed using dose optimization techniques as appropriate, variously including the following: *Automated exposure control *Adjustment of mA and/or kV according to patient size (this includes techniques or standardized protocols for targeted exams where dose is matched to indication/reason for exam; i.e. extremities or head) *Use of iterative reconstruction technique. DLP: 227 mg centimeter. FINDINGS: CERTIFIED PERSONAL FINANCE COUNSELOR: No hyperinflation. Pulmonary reticular pattern. LUNGS: Bilateral multifocal patchy and confluent pulmonary groundglass with the confluent attenuation extending from the pulmonary hilum to the periphery. Pulmonary mosaic pattern. No bronchiectasis. No honeycombing. Mild peribronchial septal thickening. MEDIASTINUM: Lymphadenopathy, Mediastinal and pulmonary hilum l. No pericardial effusion. Thoracic aorta demonstrates mixed plaques without gross aneurysm. CORONARY ARTERY CALCIFICATION: Punctate calcifications. PLEURA: Bilateral pleural effusions, small to moderate volume. No pneumothorax. AXILLA: No lymphadenopathy. UPPER ABDOMEN: Contracted gallbladder. Calcified plaques in the abdominal aorta wall and splenic artery. Soft tissue fullness both adrenal glands measuring -3 Hounsfield units. OSSEOUS STRUCTURES: No acute fracture or listhesis in the axial skeleton. CT/CT chest wo IV con IMPRESSION: Bilateral multifocal acute airspace disease versus sarcoidosis versus lymphoproliferative disorder among other etiologies.. Fleischner guidelines were followed. Electronically signed by: Jayden Camacho MD 01/14/2025 03:19 PM EDT
[2025-01-14 03:17] LABS: Glucose, Whole Blood 176 mg/dL (60-115)
[2025-01-14 03:24] LABS: MANUAL DIFF FLAG NO
[2025-01-14 03:26] LABS: Basophils Percent Auto 0.3 % (0-2); Eosinophils Absolute Auto 0.3 X10*3/uL (0.0-0.4); Hemoglobin 8.6 g/dl (14.0-18.0); Imm Gran Abs Auto 0.09 X10*3/uL (0.00-0.03); Imm Gran Pct Auto 0.6 % (0.0-0.4); Lymphocytes Absolute Auto 1.6 X10*3/uL (1.2-4.9); Mean Corpuscular HGB Conc 30.7 g/dl (31.0-36.0); Mean Corpuscular Hemoglobin 21.9 pg (27.0-33.0); Mean Corpuscular Volume 71.4 fL (80.0-98.0); Mean Platelet Volume 9.3 fL (9.4-12.4); Monocytes Absolute Auto 1.1 X10*3/uL (0.1-1.2); Monocytes Percent Auto 7.4 % (2-11); Neutrophils Absolute Auto 11.6 x10*3/uL (2.0-8.3); Neutrophils Percent Auto 78.7 % (45-73); Platelet Count 469 X10*3/uL (160-400); Red Blood Count 3.92 X10*6/uL (4.60-5.80); Red Cell Distribution Width 17.9 % (11.0-16.0); White Blood Count 14.8 X10*3/uL (4.8-10.8)
[2025-01-14 03:49] LABS: Alanine Aminotransferase 14 U/L (0-40); Albumin Level 3.5 g/dL (3.5-5.0); Anion Gap 16 (12-20); Aspartate Amino Transferase 15 U/L (5-37); Bilirubin Total 0.2 mg/dL (0.0-1.0); Blood Urea Nitrogen 37 mg/dL (9-16); Calcium 8.7 mg/dL (8.4-10.2); Carbon Dioxide 22 mmol/L (22-29); Chloride 105 mmol/L (96-108); Estimated Glomerular Filt Rate 33; Glucose Random 188 mg/dL (60-115); Potassium 3.6 mmol/L (3.3-5.1); Sodium 139 mmol/L (135-145); Total Protein 7.3 g/dL (6.5-8.0)
[2025-01-14 03:54] LABS: B Type Natriuretic Peptide 702 pg/mL (<100)
[2025-01-14 03:56] LABS: Alkaline Phosphatase 164 U/L (39-117)
[2025-01-14 04:05] LABS: Troponin-I High Sensitivity 2.7 ng/L (<3.5-35.0)
--- NOTE | 2025-01-14 04:18 | ED_ITS ---
HPI - General Adult General Chief complaint: General Medical Stated complaint: Bilat edema in legs, Hx CHF, on 2 L O2 Time Seen by Provider: 01/14/25 04:03 Source: patient Mode of arrival: ambulatory Limitations: no limitations History of Present Illness ED Provider: Dr. Theresa Emmanuel HPI narrative: Patient comes to the emergency room complaining of shortness of breath. Patient states that for the last 2 days he has noticed that his legs are getting more swollen. Patient known to have CHF. Patient states that he noticed about a week ago that his shortness of breath was getting worse. Patient is usually able to ambulate around the super marked by himself. However, patient states that the last few days he has been so short of breath walking that he needs to use when of the electric cart. Patient states that he only uses oxygen at bedtime. Patient states he is compliant with his medications. Patient denies any URI symptoms. Related Data Home Medications ?Medication ?Instructions ?Recorded ?Confirmed escitalopram oxalate 10 mg tablet 10 mg PO DAILY 08/01/22 12/20/24 trazodone 50 mg tablet 100 mg PO BEDTIME 08/01/22 12/20/24 aspirin 81 mg tablet,delayed 81 mg PO DAILY 10/06/22 12/20/24 release atorvastatin 40 mg tablet 40 mg PO DAILY 10/06/22 12/20/24 metoprolol succinate 100 mg 100 mg PO DAILY 10/06/22 12/20/24 tablet,extended release 24 hr fluticasone 250 mcg-salmeterol 50 1 ea inhalation BID 12/22/23 12/20/24 mcg/dose blistr powdr for inhalation (Advair Diskus) albuterol sulfate 90 mcg/actuation 2 puff inhalation Q4H PRN 04/26/24 12/20/24 aerosol inhaler bronchospasm amlodipine 5 mg tablet 10 mg PO DAILY 06/02/24 12/20/24 insulin pump cartridge,automated 06/11/24 12/05/24 dose,BT with controller subcutaneous (Omnipod 5 G6 Intro Kit (Gen 5) subcutaneous cartridge with controller) omeprazole 40 mg capsule,delayed 40 mg PO DAILY@0630 07/15/24 12/20/24 release insulin lispro 100 unit/mL 100 unit DIRECTED 11/19/24 12/20/24 subcutaneous solution torsemide 40 mg tablet 40 mg PO BID 12/20/24 12/20/24 Previous Rx's ?Medication ?Instructions ?Recorded magnesium oxide 400 mg (241.3 mg 400 mg PO BIDPC #60 tabs 08/20/22 magnesium) tablet hydralazine 100 mg tablet 100 mg PO TID 30 days #90 tabs 05/09/23 fluticasone propionate 50 1 spray intranasal BID #16 grams 07/19/24 mcg/actuation nasal spray,suspension insulin glargine 100 unit/mL 15 unit (0.15 mL) subcut DAILY #10 11/26/24 subcutaneous solution (Lantus mL U-100 Insulin) nicotine 21 mg/24 hr daily 21 mg transdermal DAILY #90 ea 11/26/24 transdermal patch Allergies Allergy/AdvReac Type Severity Reaction Status Date / Time dulaglutide [From [facility]] Allergy Unknown Verified 01/14/25 02:51 metformin [METFORMIN] AdvReac Mild DIARRHEA, Verified 01/14/25 02:51 nausea and vomiting Review of Systems 2 Review of Systems: Constitutional : No Weight loss, No Fever, No Chills, No Night Sweats, No Fatigue, No Malaise ENT/Mouth : No Hearing loss, No Ear Pain, No Nasal Congestion, No Sinus Pain, No Hoarseness, No sore throat, No Rhinorrhea, No Swallowing Difficulty Eyes: No Eye Pain, No Swelling, No Redness, No Foreign Body, No Discharge, No Vision Changes Cardiovascular : No Chest Pain, complaining of shortness of breath with exertion, positive orthopnea, worsening lower extremity edema Respiratory : No Cough, No Sputum, No Wheezing, No Smoke Exposure Gastrointestinal : No Nausea, No Vomiting, No Diarrhea, No Constipation, No abdominal Pain, No Hematochezia, No Melena Genitourinary : no irregular bleeding, No Dysuria, No Urinary Frequency, No Hematuria, No Urinary Incontinence, No Urgency, No Flank Pain, No Urinary Flow Changes, No Hesitancy Musculoskeletal : No joint pain, No Myalgias, No Joint Swelling Skin : No Skin Lesions, No rash Neuro : No Weakness, No Numbness, No Paresthesias, No Loss of Consciousness, No Dizziness, No Headache Psych : No Anxiety/Panic, No Depression, No SI/HI/AH/VH, No Social Issues, Heme/Lymph: No Bruising, No Bleeding,No Lymphadenopathy Endocrine : No Polyuria, No Polydipsia, No Temperature Intolerance PMFSH Past Medical History Medical History Tobacco use Lactic acidosis Acute bronchospasm Pneumonia CKD (chronic kidney disease) stage 1, GFR 90 ml/min or greater YARELIS (obstructive sleep apnea) Acute on chronic diastolic (congestive) heart failure KELVIN (acute kidney injury) Congestive heart failure Hypertension Chronic heart failure with preserved ejection fraction (HFpEF) Acute respiratory failure with hypoxia Congestive heart failure Depression COPD exacerbation CHF exacerbation Hypoxia Acute respiratory failure Uncontrolled hypertension Acute on chronic anemia Hyperglycemia due to type 2 diabetes mellitus YARELIS (obstructive sleep apnea) Congestive heart failure Anxiety HLD (hyperlipidemia) Diabetes Hypercholesteremia HTN (hypertension) Asthma PAD (peripheral artery disease) Surgical History History of esophagogastroduodenoscopy S/P angiogram of extremity Family History Family History Father Alzheimer disease CAD (coronary artery disease) Social History Social History Household Members: Family Household Members Other:: 4 Housing: Apartment Do you presently have visiting nurse or other home services: No Unable to assess alcohol history related to: Unknown Alcohol intake: current Alcohol intake frequency: a few times a month Alcohol type: hard liquor Comment: pt is independent in room Patient Tobacco Use Status: Current everyday Tobacco user Tobacco use type: Cigarette Cigarette Packs Per Day: 1 Cigarettes Per Day: 10 Years Smoked: 35 Smoked in Last 30 Days: Yes e-Cigarette/Vaping Use: Never Used Second Hand Smoke Exposure: Yes Use of substances other than those prescribed or required for medical reasons: Yes Substance Use Type: Marijuana Advance Directives: Yes Advance Directives on File: Yes Advance Directives Date on File: 06/21/21 service: No Current occupational status: disabled Physical Exam ED Vital Signs: Vital Signs - 24 hr 01/14/25 02:39 01/14/25 02:49 01/14/25 04:21 Temperature 98.5 F 98.5 F Pulse Rate 78 79 81 Respiratory Rate 20 20 17 Blood Pressure 123/57 L 131/64 121/59 L Pulse Oximetry 92 95 84 L Oxygen Delivery Method Nasal Cannula Nasal Cannula Room Air Oxygen Flow Rate 3 01/14/25 04:21 01/14/25 06:00 Temperature 98.2 F Pulse Rate 80 76 Respiratory Rate 19 17 Blood Pressure 126/61 108/59 L Pulse Oximetry 96 96 Oxygen Delivery Method Nasal Cannula Nasal Cannula Oxygen Flow Rate 2 2 BMI result Body Mass Index 26.5 Const Other: Appearance: Alert. Oriented X3. No acute distress. Eyes: Pupils equal, round and reactive to light. ENT: Pharynx normal. Neck: Normal inspection. Neck supple. No lymph nodes noted. No crepitus CVS: Normal heart rate and rhythm. Pulses normal. Normal S1 and S2 Respiratory: No respiratory distress. Bilateral crackles, no rales, no wheezing Abdomen: Soft and nontender. No rigidity. No distention. Skin: Skin warm and dry. Normal skin color. Normal skin turgor. Extremities: +3 pitting edema bilaterally, No Lacerations. No Rash Neuro: Oriented X 3. No motor deficit. No sensory deficit. Moving all extremities. No slurred speech. CN 2 through 12 grossly intact Psych: calm, cooperative, normal affect Medications Administered Discontinued Medications Generic Name Dose Route Start Last Admin Trade Name Freq PRN Reason Stop Dose Admin Bumetanide 1 mg 01/14/25 04:23 01/14/25 04:41 Bumetanide 1 Mg/4 Ml Vial IVPUSH 01/14/25 04:24 1 mg ONCE ONE Administration Protocol Medical Decision Making Medical Decision Making MDM Narrative: Patient states that he only needs oxygen at baseline when he sleeps. However, the shortness of breath has been significant while awake. Here in the emergency room, at room air awake at rest 84%. Patient was put on 2 L. Patient states that he is compliant with his medication, takes torsemide, losartan. Here in the ED, patient was given a dose Bumex IV push. My interpretation of labs: Patient's white blood cell count 14 which is baseline for the patient, hemoglobin slightly decreased 8.6 but patient is known to have chronic anemia. Patient's baseline creatinine is 1.6, today 2.13. Patient's BNP 702, troponin 2.7. My interpretation of chest x-ray, vascular congestion Radiology report: Atelectasis, no consolidation or pleural effusion. Possible infiltrate in left mid lung. Patient has no cough, no fever, no URI symptoms I discussed the patient with Dr. John, patient being admitted, patient agrees with plan Differential Diagnosis Differential Diagnoses: The differential diagnosis associated with the presentation includes (Asthma, chronic lung disease, CHF exacerbation, viral illness) Admission/Observation Consideration of admission/observation: Escalation of care including admission/observation considered Consult Healthcare Provider Management of the patient was discussed with: Hospitalist Lab Data MDM Lab Attestation statement: I reviewed the patient's lab results. 01/14/25 03:03 01/14/25 03:03 Labs: Lab Results 01/14/25 01/14/25 Range/Units 03:03 03:13 WBC 14.8 H (4.8-10.8) X10*3/uL RBC 3.92 L (4.60-5.80) X10*6/uL Hgb 8.6 L (14.0-18.0) g/dl Hct 28.0 L (42.0-52.0) % MCV 71.4 L (80.0-98.0) fL MCH 21.9 L (27.0-33.0) pg MCHC 30.7 L (31.0-36.0) g/dl RDW 17.9 H (11.0-16.0) % Plt Count 469 H D (160-400) X10*3/uL MPV 9.3 L (9.4-12.4) fL Immature Gran % (Auto) 0.6 H (0.0-0.4) % Neut % (Auto) 78.7 H (45-73) % Lymph % (Auto) 11.0 L (20-40) % [place] % (Auto) 7.4 (2-11) % Eos % (Auto) 2.0 (0-4) % Baso % (Auto) 0.3 (0-2) % Lymph # (Auto) 1.6 (1.2-4.9) X10*3/uL [place] # (Auto) 1.1 (0.1-1.2) X10*3/uL Eos # (Auto) 0.3 (0.0-0.4) X10*3/uL Baso # (Auto) 0.0 (0.0-0.2) X10*3/uL Abs Immat Gran (auto) 0.09 H (0.00-0.03) X10*3/uL Absolute Neuts (auto) 11.6 H (2.0-8.3) x10*3/uL Absolute Nucleated RBC 0.000 (0.0-0.012) X10*3/uL Nucleated RBC % (auto) 0.0 (0.0-0.2) /100WBC Sodium 139 (135-145) mmol/L Potassium 3.6 (3.3-5.1) mmol/L Chloride 105 (96-108) mmol/L Carbon Dioxide 22 (22-29) mmol/L Anion Gap 16 (12-20) BUN 37 H (9-16) mg/dL Creatinine 2.13 H (0.5-1.4) mg/dL Estim Creat Clear Calc 36.0 Estimated GFR 33 POC Glucose 176 H (60-115) mg/dL Random Glucose 188 H (60-115) mg/dL Calcium 8.7 (8.4-10.2) mg/dL Total Bilirubin 0.2 (0.0-1.0) mg/dL AST 15 (5-37) U/L ALT 14 (0-40) U/L Alkaline Phosphatase 164 H (39-117) U/L Troponin I High Sens 2.7 D (<3.5-35.0) ng/L B-Natriuretic Peptide 702 H (<100) pg/mL Total Protein 7.3 (6.5-8.0) g/dL Albumin 3.5 (3.5-5.0) g/dL Independent Interpretation I performed an independent interpretation of an: Plain X-Ray Radiology Impression Discussion of test interpretation with radiology: I have reviewed the radiologist's reading. Radiologist Impression: FINDINGS: A single frontal view of the chest was performed. Cardiac silhouette is accentuated by the portable technique. Mild elevation of the right hemidiaphragm is again noted. Linear atelectasis is noted within the right mid lung. An area of atelectasis versus infiltrate is noted within the left mid lung. There is also mild linear atelectasis in the left lower lung. No consolidation or pleural effusion. No pneumothorax. IMPRESSION: 1. Linear atelectasis in the right mid lung. An area of atelectasis versus infiltrate is noted in the left mid lung. CT chest can be considered for a more accurate assessment. 2. No consolidation or pleural effusion Critical Care Time Critical Care Time Critical Care Time: Yes Total Critical Care Time: 60 Attestation: I have personally provided critical care time. Time includes review of lab data, radiology results, discussion with consultants, and monitoring for potential decompensation. Intervention performed as documented. Discharge Plan Discharge Clinical Impression: Acute exacerbation of CHF (congestive heart failure), Acute renal failure superimposed on chronic kidney disease Patient Disposition: Admitted As Inpatient Print Language: Kyrgyz
[2025-01-14] MEDS: Bumetanide 1 MG/4 ML VIAL IVPUSH (04:41)
[2025-01-14 07:05] LABS: Appearance Urine Clear; Color Urine Yellow; Glucose Urine UA Negative (Negative); Leukocyte Esterase Urine Negative (Negative); Nitrite Urine Negative (Negative); PH 5.5 (5.0-9.0); Specific Gravity - Urine 1.015 (1.005-1.025); UMIC TRIGGER UACC YES; Urine Blood Negative (Negative); Urine Ketones Trace mg/dL (Negative); Urine Protein 100 (2+) mg/dL (Neg-Trace)
[2025-01-14 07:24] LABS: Bacteria Urine None Seen (None Seen); RBC Urine 0-2 /HPF (0-2); Squamous Epithelial Cell Urine 0-2 /HPF (0-2); WBC Urine 0-5 /HPF (0-5)
--- NOTE | 2025-01-14 08:24 | P.HPHOSP_ITS ---
History of Present Illness Date of Service: 01/14/25 Chief Complaint: Shortness of breath 49-year-old man presenting with complaints of increased shortness breath over the last 2-3 days. He noted increased leg edema shortness breath. He has known congestive heart failure and did report that he has had increased salt in his diet recently, reports compliance with his medication. He reported he has had 2 uses electric cart more and his oxygen during the day which he normally only uses at night. He denied chest pain, nausea, vomiting, diarrhea, recent travel, sick contacts BNP 702, oxygen saturation 84% on room air, creatinine 2.13, white blood cell count 14.8, chest x-ray showing atelectasis, no consolidation or effusion. Patient received a dose of IV Bumex in the ER. He will be admitted for further management and treatment of acute congestive heart failure Review of Systems 2 Review of Systems: Denies any recent fever chills or decrease in appetite respiratory see HP cardiovascular see HP gastrointestinal denies any dysphagia abdominal pain nausea vomiting or diarrhea genitourinary denies any dysuria frequency or hematuria musculoskeletal denies any joint pain or swelling neuropsych denies any weakness or seizures all other systems reviewed are negative [facility] Medical History (Updated 01/14/25 @ 14:26 by Unique Rey NP) Tobacco use CKD (chronic kidney disease) stage 1, GFR 90 ml/min or greater YARELIS (obstructive sleep apnea) Acute on chronic diastolic (congestive) heart failure KELVIN (acute kidney injury) Chronic heart failure with preserved ejection fraction (HFpEF) Depression Acute on chronic anemia Anxiety HLD (hyperlipidemia) Diabetes HTN (hypertension) Asthma PAD (peripheral artery disease) Family History Father Alzheimer disease CAD (coronary artery disease) Surgical History History of esophagogastroduodenoscopy S/P angiogram of extremity Social History Household Members: Family Household Members Other:: 4 Housing: Apartment Do you presently have visiting nurse or other home services: No Unable to assess alcohol history related to: Unknown Alcohol intake: current Alcohol intake frequency: a few times a month Alcohol type: hard liquor Comment: pt is independent in room Patient Tobacco Use Status: Current everyday Tobacco user Tobacco use type: Cigarette Cigarette Packs Per Day: 1 Cigarettes Per Day: 10 Years Smoked: 35 Smoked in Last 30 Days: Yes e-Cigarette/Vaping Use: Never Used Second Hand Smoke Exposure: Yes Use of substances other than those prescribed or required for medical reasons: Yes Substance Use Type: Marijuana Advance Directives: Yes Advance Directives on File: Yes Advance Directives Date on File: 06/21/21 Nutrition Risks: No Nutritional Risk service: No Current occupational status: disabled Meds Allergies Allergy/AdvReac Type Severity Reaction Status Date / Time dulaglutide [From Trulicity] Allergy Unknown Verified 01/14/25 02:51 metformin [METFORMIN] AdvReac Mild DIARRHEA, Verified 01/14/25 02:51 nausea and vomiting Home Medications ?Medication ?Instructions ?Recorded ?Confirmed ?Last Taken ?Type escitalopram oxalate 10 mg tablet 10 mg PO DAILY 08/01/22 01/14/25 01/13/25 History trazodone 50 mg tablet 100 mg PO BEDTIME 08/01/22 01/14/25 01/13/25 History aspirin 81 mg tablet,delayed 81 mg PO DAILY 10/06/22 01/14/25 01/13/25 History release atorvastatin 40 mg tablet 40 mg PO DAILY 10/06/22 01/14/25 01/13/25 History metoprolol succinate 100 mg 100 mg PO DAILY 10/06/22 01/14/25 01/13/25 History tablet,extended release 24 hr fluticasone 250 mcg-salmeterol 50 1 ea inhalation BID 12/22/23 01/14/25 01/13/25 History mcg/dose blistr powdr for inhalation (Advair Diskus) albuterol sulfate 90 mcg/actuation 2 puff inhalation Q4H PRN 04/26/24 01/14/25 07/15/24 History aerosol inhaler bronchospasm amlodipine 5 mg tablet 10 mg PO DAILY 06/02/24 01/14/25 01/13/25 History insulin pump cartridge,automated 06/11/24 12/05/24 Unknown History dose,BT with controller subcutaneous (Omnipod 5 G6 Intro Kit (Gen 5) subcutaneous cartridge with controller) omeprazole 40 mg capsule,delayed 40 mg PO DAILY@0630 07/15/24 01/14/25 01/13/25 History release insulin lispro 100 unit/mL 100 unit DIRECTED 11/19/24 01/14/25 01/13/25 History subcutaneous solution torsemide 40 mg tablet 40 mg PO BID 12/20/24 01/14/25 01/13/25 History isosorbide mononitrate 30 mg 30 mg PO DAILY 01/14/25 01/14/25 01/13/25 History tablet,extended release 24 hr losartan 25 mg tablet 25 mg PO DAILY 01/14/25 01/14/25 01/13/25 History sucralfate 1 gram tablet 1 g PO QID 01/14/25 01/14/25 01/13/25 History Physical Exam 2 Vital Signs and Narrative: Vital Signs: Last Vital Signs Temp 98.4 F 01/14/25 08:20 Pulse 75 01/14/25 08:20 Resp 16 01/14/25 08:20 BP 109/59 L 01/14/25 08:20 Pulse Ox 96 01/14/25 08:20 O2 Del Method Nasal Cannula 01/14/25 08:20 O2 Flow Rate 4 01/14/25 08:20 Oxygen Flow Rate 2 01/14/25 02:49 BMI result Body Mass Index 26.5 Appearing in no acute distress head is normocephalic atraumatic eyes pupils are PERRLA sclera is anicteric mouth throat mucous membranes are intact and moist neck is supple no lymphadenopathy, no JVD noted lung sounds are clear to auscultation heart regular rate rhythm, clear S1, S2 positive bowel sounds, abdomen is soft, nontender neuro patient is alert x3, no focal deficits Results Labs 01/14/25 03:03 01/14/25 03:03 Labs: Laboratory Results - last 24 hr 01/14/25 01/14/25 01/14/25 03:03 03:13 06:49 MCV 71.4 L MCH 21.9 L MCHC 30.7 L RDW 17.9 H Plt Count 469 H D MPV 9.3 L Immature Gran % (Auto) 0.6 H Neut % (Auto) 78.7 H Lymph % (Auto) 11.0 L [place] % (Auto) 7.4 Eos % (Auto) 2.0 Baso % (Auto) 0.3 Lymph # (Auto) 1.6 [place] # (Auto) 1.1 Eos # (Auto) 0.3 Baso # (Auto) 0.0 Abs Immat Gran (auto) 0.09 H Absolute Neuts (auto) 11.6 H Absolute Nucleated RBC 0.000 Nucleated RBC % (auto) 0.0 Anion Gap 16 Estim Creat Clear Calc 36.0 Estimated GFR 33 POC Glucose 176 H Random Glucose 188 H Calcium 8.7 Total Bilirubin 0.2 AST 15 ALT 14 Alkaline Phosphatase 164 H B-Natriuretic Peptide 702 H Total Protein 7.3 Albumin 3.5 Urine Color Yellow Urine Appearance Clear Urine pH 5.5 Ur Specific [place] 1.015 Urine Protein 100 (2+) H Urine Glucose (UA) Negative Urine Ketones Trace Urine Blood Negative Urine Nitrite Negative Ur Leukocyte Esterase Negative Urine RBC 0-2 Urine WBC 0-5 Ur Squamous Epith Cells 0-2 Urine Bacteria None Seen Hyaline Casts 6-10 Assessment and Plan (1) Acute exacerbation of CHF (congestive heart failure): Status: Acute Plan 49-year-old man admitted with acute on chronic congestive heart failure Acute on chronic hypoxic respiratory failure secondary to acute on chronic congestive heart failure with preserved ejection fraction IV Lasix 40 mg b.i.d. Continue oxygen supplementation to keep oxygen saturation greater than 90% Echocardiogram Cardiology consultation Monitor on telemetry Daily weights Strict intake and output Acute renal failure on CKD stage 1 Likely secondary to fluid overload Diurese and monitor BMP Hypertension Low blood pressure Hold antihypertensives for now Diabetes mellitus type 2 Sliding scale, ADA diet Obstructive sleep apnea CPAP at bedtime GERD Continue PPI Mental health Continue home medications Microcytic anemia Stable H&H Check iron studies in the morning DVT prophylaxis with heparin Full code Quality Stroke Does the patient have a stroke diagnosis?: No VTE Prior VTE?: No VTE Risk Level:: Medical - moderate - high VTE Device Contraindication: Treatment Not Indicated VTE Drug Contraindication: N/A - Med Ordered
--- NOTE | 2025-01-14 09:33 | PHA.MEDREC ---
Pharmacy Consult ? Medication Reconciliation Pharmacy has completed the medication reconciliation. Spoke to patient to confirm medication list. Per patient, he uses the OMNIPOD INSULIN PUMP (has it on him right now) and uses up to 100 units of insulin lispro per day. He does NOT use Lantus because it brings his blood sugar down too low. He does not use diclofenac gel and furosemide was replaced by torsemide. He confirmed amlodipine, escitalopram, advair diskus, fluticasone nasal sprays, hydralazine and omeprazole even though the pharmacy claims are not current. He said he takes mag oxide twice a day. Last dose of medications was yesterday 01/13/25.
[2025-01-14] MEDS: Heparin Sodium,Porcine 5,000 UNIT/ML VIAL 5000 UNIT SUBCUT ×2 (10:14→21:22)
--- NOTE | 2025-01-14 11:20 | PC.NURSE ---
ZHOU calhoun made aware that patient has his own insulin pump on that he put on yesterday. Omnipod to LEFT LOWER abd. Basal rate 0.75units/hr. Patient reports gives PRN bolus independently throughout day after meals pending his BS on his monitor that is on his LEFT upper arm.
--- NOTE | 2025-01-14 11:30 | PC.NURSE ---
LIANNA Iglesias notified this RN of BS of 64. Patient states feeling well just fatigued. provided a cup of orange juice and will recheck in 20min.
[2025-01-14 11:33] LABS: Glucose, Whole Blood 64 mg/dL (60-115)
[2025-01-14 11:48] LABS: Glucose, Whole Blood 85 mg/dL (60-115)
--- NOTE | 2025-01-14 12:58 | PM.CNCAR ---
History of Present Illness History of Present Illness Date of Service: 01/14/25 Chief complaint: CHF Narrative: [age] year gentleman who we have been asked to see for congestive heart failure. He has background history of diastolic heart failure. He is presenting with shortness of breath and fluid buildup. He said he drank 2 drinks of vodka yesterday. He is saying he has not been drinking regularly though. Some dietary indiscretions are there and he ate a sausage recently. Reporting compliance with medications. He is on torsemide 40 mg twice a day. [facility] Past Medical History Medical History Tobacco use Lactic acidosis Acute bronchospasm Pneumonia CKD (chronic kidney disease) stage 1, GFR 90 ml/min or greater YARELIS (obstructive sleep apnea) Acute on chronic diastolic (congestive) heart failure KELVIN (acute kidney injury) Congestive heart failure Hypertension Chronic heart failure with preserved ejection fraction (HFpEF) Acute respiratory failure with hypoxia Congestive heart failure Depression COPD exacerbation CHF exacerbation Hypoxia Acute respiratory failure Uncontrolled hypertension Acute on chronic anemia Hyperglycemia due to type 2 diabetes mellitus YARELIS (obstructive sleep apnea) Congestive heart failure Anxiety HLD (hyperlipidemia) Diabetes Hypercholesteremia HTN (hypertension) Asthma PAD (peripheral artery disease) Family History Family History Father Alzheimer disease CAD (coronary artery disease) Surgical History Surgical History History of esophagogastroduodenoscopy S/P angiogram of extremity Social History Social History Household Members: Family Household Members Other:: 4 Housing: Apartment Do you presently have visiting nurse or other home services: No Unable to assess alcohol history related to: Unknown Alcohol intake: current Alcohol intake frequency: a few times a month Alcohol type: hard liquor Comment: pt is independent in room Patient Tobacco Use Status: Current everyday Tobacco user Tobacco use type: Cigarette Cigarette Packs Per Day: 1 Cigarettes Per Day: 10 Years Smoked: 35 Smoked in Last 30 Days: Yes e-Cigarette/Vaping Use: Never Used Second Hand Smoke Exposure: Yes Use of substances other than those prescribed or required for medical reasons: Yes Substance Use Type: Marijuana Advance Directives: Yes Advance Directives on File: Yes Advance Directives Date on File: 06/21/21 Nutrition Risks: No Nutritional Risk service: No Current occupational status: disabled Meds Allergies Allergy/AdvReac Type Severity Reaction Status Date / Time [facility] Allergy Unknown Verified 01/14/25 02:51 metformin [METFORMIN] AdvReac Mild DIARRHEA, Verified 01/14/25 02:51 nausea and vomiting Active Medications: Current Medications Acetaminophen (Acetaminophen 325 Mg Tablet) 650 mg PO Q6H PRN PRN Reason: Pain, Mild 1-3,fever,headache Calcium Carbonate (Calcium Carbonate 750 Mg Tab.Chew) 750 mg PO Q4H PRN PRN Reason: Heartburn Dextrose (Dextrose 50 % 25 Gm/50 Ml Syringe) 25 gm IVPUSH Q15M PRN; Protocol PRN Reason: per Hypoglycemia Standing Ord. Glucose (Glucose Gel 15 Gm Gel..Gram.) 15 gm PO Q15M PRN; Protocol PRN Reason: per Hypoglycemia Standing Ord. Heparin Sodium (Porcine) (Heparin Sodium,Porcine 5,000 Unit/Ml Vial) 5,000 unit SUBCUT Q12H [facility], 1928–1983 Last Admin: 01/14/25 10:14 Dose: 5,000 unit Insulin Human Lispro (Insulin Lispro 100 Unit/Ml 3 Ml Vial) 0 unit SUBCUT [facility] [place]; Protocol Last Admin: 01/14/25 11:42 Dose: Not Given Magnesium Hydroxide (Milk Of Magnesia 30 Ml Oral.Susp) 30 ml PO DAILY PRN PRN Reason: Constipation Melatonin (Melatonin 3 Mg Tablet) 6 mg PO BEDTIME PRN PRN Reason: Insomnia Ondansetron HCl (Ondansetron Hcl 4 Mg/2 Ml Vial) 4 mg IVPUSH Q8H PRN PRN Reason: Nausea and Vomiting Sodium Chloride (0.9 % Sodium Chloride Flush 3 Ml Syringe) 3 ml [facility]FLUSH [facility] Home Medications ?Medication ?Instructions ?Recorded ?Confirmed ?Last Taken ?Type escitalopram oxalate 10 mg tablet 10 mg PO DAILY 08/01/22 01/14/25 01/13/25 History trazodone 50 mg tablet 100 mg PO BEDTIME 08/01/22 01/14/25 01/13/25 History aspirin 81 mg tablet,delayed 81 mg PO DAILY 10/06/22 01/14/25 01/13/25 History release atorvastatin 40 mg tablet 40 mg PO DAILY 10/06/22 01/14/25 01/13/25 History metoprolol succinate 100 mg 100 mg PO DAILY 10/06/22 01/14/25 01/13/25 History tablet,extended release 24 hr fluticasone 250 mcg-salmeterol 50 1 ea inhalation BID 12/22/23 01/14/25 01/13/25 History mcg/dose blistr powdr for inhalation (Advair Diskus) albuterol sulfate 90 mcg/actuation 2 puff inhalation Q4H PRN 04/26/24 01/14/25 07/15/24 History aerosol inhaler bronchospasm amlodipine 5 mg tablet 10 mg PO DAILY 06/02/24 01/14/25 01/13/25 History insulin pump cartridge,automated 06/11/24 12/05/24 Unknown History dose,BT with controller subcutaneous (Omnipod 5 G6 Intro Kit (Gen 5) subcutaneous cartridge with controller) omeprazole 40 mg capsule,delayed 40 mg PO DAILY@0630 07/15/24 01/14/25 01/13/25 History release insulin lispro 100 unit/mL 100 unit DIRECTED 11/19/24 01/14/25 01/13/25 History subcutaneous solution torsemide 40 mg tablet 40 mg PO BID 12/20/24 01/14/25 01/13/25 History isosorbide mononitrate 30 mg 30 mg PO DAILY 01/14/25 01/14/25 01/13/25 History tablet,extended release 24 hr losartan 25 mg tablet 25 mg PO DAILY 01/14/25 01/14/25 01/13/25 History sucralfate 1 gram tablet 1 g PO QID 01/14/25 01/14/25 01/13/25 History Physical Exam Vital Signs: Vital Signs: Last Vital Signs Temp 98.4 F 01/14/25 08:20 Pulse 73 01/14/25 10:04 Resp 16 01/14/25 10:04 BP 106/56 L 01/14/25 10:04 Pulse Ox 96 01/14/25 10:04 O2 Del Method Nasal Cannula 01/14/25 10:04 O2 Flow Rate 4 01/14/25 10:04 Oxygen Flow Rate 2 01/14/25 02:49 BMI result Body Mass Index 26.5 GENERAL APPEARANCE: in no acute distress, pleasant. NECK: no carotid bruit, ++ jugular venous distention. SKIN: no suspicious lesions, warm and dry. HEART: no murmurs, regular rate and rhythm. LUNGS: Crackles both bases. ABDOMEN: soft, nontender. EXTREMITIES: no edema. PERIPHERAL PULSES: equal. NEUROLOGIC: No gross deficits, AAO X 3 Objective Labs and Meds 01/14/25 03:03 01/14/25 03:03 Lab results: Laboratory Results - last 24 hr 01/14/25 01/14/25 01/14/25 03:03 03:13 06:49 WBC 14.8 H RBC 3.92 L Hgb 8.6 L Hct 28.0 L MCV 71.4 L MCH 21.9 L MCHC 30.7 L RDW 17.9 H Plt Count 469 H D MPV 9.3 L Immature Gran % (Auto) 0.6 H Neut % (Auto) 78.7 H Lymph % (Auto) 11.0 L [place] % (Auto) 7.4 Eos % (Auto) 2.0 Baso % (Auto) 0.3 Lymph # (Auto) 1.6 [place] # (Auto) 1.1 Eos # (Auto) 0.3 Baso # (Auto) 0.0 Abs Immat Gran (auto) 0.09 H Absolute Neuts (auto) 11.6 H Absolute Nucleated RBC 0.000 Nucleated RBC % (auto) 0.0 Sodium 139 Potassium 3.6 Chloride 105 Carbon Dioxide 22 Anion Gap 16 BUN 37 H Creatinine 2.13 H Estim Creat Clear Calc 36.0 Estimated GFR 33 POC Glucose 176 H Random Glucose 188 H Calcium 8.7 Total Bilirubin 0.2 AST 15 ALT 14 Alkaline Phosphatase 164 H Troponin I High Sens 2.7 D B-Natriuretic Peptide 702 H Total Protein 7.3 Albumin 3.5 Urine Color Yellow Urine Appearance Clear Urine pH 5.5 Ur Specific [place] 1.015 Urine Protein 100 (2+) H Urine Glucose (UA) Negative Urine Ketones Trace Urine Blood Negative Urine Nitrite Negative Ur Leukocyte Esterase Negative Urine RBC 0-2 Urine WBC 0-5 Ur Squamous Epith Cells 0-2 Urine Bacteria None Seen Hyaline Casts 6-10 01/14/25 01/14/25 11:22 11:44 WBC RBC Hgb Hct MCV MCH MCHC RDW Plt Count MPV Immature Gran % (Auto) Neut % (Auto) Lymph % (Auto) [place] % (Auto) Eos % (Auto) Baso % (Auto) Lymph # (Auto) [place] # (Auto) Eos # (Auto) Baso # (Auto) Abs Immat Gran (auto) Absolute Neuts (auto) Absolute Nucleated RBC Nucleated RBC % (auto) Sodium Potassium Chloride Carbon Dioxide Anion Gap BUN Creatinine Estim Creat Clear Calc Estimated GFR POC Glucose 64 85 Random Glucose Calcium Total Bilirubin AST ALT Alkaline Phosphatase Troponin I High Sens B-Natriuretic Peptide Total Protein Albumin Urine Color Urine Appearance Urine pH Ur Specific [place] Urine Protein Urine Glucose (UA) Urine Ketones Urine Blood Urine Nitrite Ur Leukocyte Esterase Urine RBC Urine WBC Ur Squamous Epith Cells Urine Bacteria Hyaline Casts Assessment and Plan (1) Acute exacerbation of CHF (congestive heart failure): Status: Acute Plan Acute exacerbation of congestive heart failure in a 49 year gentleman with background history of known diastolic heart failure and alcohol use. Clinically volume overloaded. Agree with IV diuretics at this point. Blood pressure well controlled. Denying any anginal symptoms otherwise. Monitor electrolytes closely. Monitor ins and outs. We will follow along with you. Thank you for allowing me to participate in the care of your patient. Please feel free to contact me if you have any questions. Procedures Date of Service Date of Service: 01/14/25
[2025-01-14 16:27] LABS: Glucose, Whole Blood 74 mg/dL (60-115)
[2025-01-14] MEDS: Sucralfate 1 GM TABLET PO ×2 (16:54→21:21)
[2025-01-14] MEDS: 0.9 % Sodium Chloride Flush 3 ML SYRINGE IVFLUSH ×2 (16:54→21:22)
--- NOTE | 2025-01-14 17:00 | CA_ITS ---
Transthoracic Echocardiogram Patient (Last, First, Middle): Ciara Quiroga, Gender: Male Date of : 1975 Age: 49 Procedure Date: 01/14/2025 Procedure Type: Transthoracic Echocardiogram Location: ER Height: 165.1 cm Weight: 72.12 kg BSA: 1.79 m2 Heart Rate: 75 bpm BP: 107 / 54 mmHg Designated Broker: SB Referring MD: Unique Rey NP Symptoms: CHF Study Quality: Adequate ECG Rhythm: Sinus Conclusions: - Normal left ventricular cavity size. There is normal left ventricular wall thickness. The left ventricular systolic function is mildly decreased. The visually estimated ejection fraction is between 40-45%. - Elevated filling pressures. - The basal inferior and mid inferolateral segments are akinetic. - Significantly elevated right atrial pressure. Mild pulmonary hypertension is present. Findings Left Ventricle Normal left ventricular cavity size. There is normal left ventricular wall thickness. The left ventricular systolic function is mildly decreased. The visually estimated ejection fraction is between 40-45%. There is evidence of regional wall motion abnormalities. Abnormal diastolic function is noted. Spectral Doppler is indicative of a restrictive filling pattern. Elevated filling pressures. Wall Motion Rest Echo Findings The basal inferior and mid inferolateral segments are akinetic. Right Ventricle Normal right ventricular cavity size and systolic function. Atria The left atrium is likely dilated. The right atrium is normal in size. Aortic Valve Normal aortic valve structure and function. There is no aortic valve stenosis. There is no aortic valve regurgitation. Mitral Valve The mitral valve appears normal. There is trace mitral valve regurgitation. There is no mitral valve stenosis. Pulmonic Valve The pulmonic valve is likely normal. Tricuspid Valve Normal tricuspid valve structure. There is trace tricuspid valve regurgitation. The right ventricular systolic pressure is 45 mmHg. Significantly elevated right atrial pressure. Mild pulmonary hypertension is present. Great Vessels All visible segments of the aorta are normal in size. The visualized portions of the pulmonary artery and branches are normal. Venous The inferior vena cava is dilated and collapses less than 50% with inspiration. Pericardium/Pleural There is no evidence of pericardial effusion. Prior Study Comparison Changes noted compared to prior study dated: 06/08/2024. Mildly reduced LVEF. Elevated filling pressures. Measurements 2D Linear Measurements IVSd: 1.08 0.6-0.9/0.6-1.0 cm LVIDd: 4.75 3.9-5.3/4.2-5.9 cm LVIDd Index: 2.65 2.4-3.2/2.2-3.1 cm/m2 LVIDs: 3.53 2.0-3.6 cm LVPWd: 0.86 0.7-1.1 cm LA Diam: 3.80 2.7-3.8/3.0-4.0 cm LAIDs Index: 2.12 1.5-2.3 cm/m2 LV Mass: 199.24 67-162/88-224 g LV Mass Index: 111.31 43-95/49-115 g/m2 LVOT Diam: 2.00 3.0+(-)1.3 cm 2D Systolic Function EF 4C: 53.60 >55% EF 2C: 47.80 >55% EF BiP: 52.30 >55% Mitral Valve MV Pk E: 1.81 MV PK A: 0.34 MV Decel Time: 143.00 E/A: 5.40 E'Lateral: 6.42 E'Medial: 7.07 E/E' Med: 25.60 E/E' Lat: 28.20 PHT: 42.00 MVA PHT: 5.24 Decel Kings: 12.63 Aortic Valve AoV Pk Ajay: 1.27 AoV Pk Grad: 6.00 LUCIANA: 2.37 LVOT LVOT Pk Ajay: 0.96 LVOT Mn Ajay: 0.66 LVOT VTI: 0.19 LVOT Pk Grad: 4.00 LVOT Mn Grad: 2.00 LVOT Diam: 2.00 LVOT Area: 3.14 Diastolic Function MV Pk E: 1.81 MV Pk A: 0.34 E/A: 5.40 E'Medial: 7.07 E/E' Med: 25.60 E' Laterial: 6.42 E/E' Lat: 28.20 Right Ventricle TAPSE (mm): 19.80 TVS' Ajay: 14.10 Tricuspid Valve TR Pk Ajay: 2.75 TR Pk Grad: 30.00 RA Press: 15.00 RVSP: 45.00 Great Vessels Aorta Sinus of Valsalva: 2.60 2.0-3.5 cm Ao Asc: 2.90 2.1-3.4 cm Pulmonary Veins Pulm Vein S/D 0.50 Pulmonary Valve PV Pk Ajay: 0.91 Peak PV Grad: 3.00 Updated in Other Vendor System with Status of Final Sadiq Rivera MD electronically signed on 01/15/2025 6:55:02 AM with status of Final
[2025-01-14] MEDS: Magnesium Oxide 400 MG TABLET PO (17:55)
[2025-01-14] MEDS: Furosemide 40 MG/4 ML VIAL IVPUSH (17:55)
[2025-01-14 21:02] LABS: Glucose, Whole Blood 120 mg/dL (60-115)
[2025-01-14] MEDS: traZODone HCL 100 MG TABLET PO (21:21)
[2025-01-14] MEDS: Fluticasone/Vilanterol 100/25 BLST.W.DEV 1 PUFF INHALE (21:25)
[2025-01-14] MEDS: Albuterol Sulfate 90 MCG 8 GM INHALER 2 PUFF INHALE (21:25)
[2025-01-15] VITALS: BP 138/64; PULSE 80; RESP 17; TEMP 36.6; O2SAT 97
[2025-01-15 04:00] VITALS: BP 158/74; PULSE 85; RESP 16; TEMP 36.6; O2SAT 97
[2025-01-15] MEDS: Omeprazole 40 MG CAPSULE.DR PO (05:06)
[2025-01-15 05:25] LABS: Glucose, Whole Blood 107 mg/dL (60-115)
[2025-01-15 06:00] LABS: Hematocrit 29.9 % (42.0-52.0); Hemoglobin 9.1 g/dl (14.0-18.0); Mean Corpuscular HGB Conc 30.4 g/dl (31.0-36.0); Mean Corpuscular Hemoglobin 21.9 pg (27.0-33.0); Mean Platelet Volume 9.7 fL (9.4-12.4); Platelet Count 534 X10*3/uL (160-400); Red Blood Count 4.15 X10*6/uL (4.60-5.80); Red Cell Distribution Width 17.8 % (11.0-16.0); White Blood Count 14.1 X10*3/uL (4.8-10.8)
[2025-01-15 06:18] LABS: B Type Natriuretic Peptide 782 pg/mL (<100)
[2025-01-15 06:20] LABS: Anion Gap 15 (12-20); Blood Urea Nitrogen 34 mg/dL (9-16); Calcium 8.8 mg/dL (8.4-10.2); Carbon Dioxide 23 mmol/L (22-29); Chloride 110 mmol/L (96-108); Creatinine Clr Calc Pharmacy 56.5; Estimated Glomerular Filt Rate 55; Glucose Random 68 mg/dL (60-115); Potassium 3.6 mmol/L (3.3-5.1); Sodium 144 mmol/L (135-145)
[2025-01-15 06:21] LABS: Iron 19 mcg/dL (45-160); Percent Iron Saturation 6 % (15-50); Total Iron Binding Capacity 342 mcg/dL (228-428); Unsaturated Iron Binding 323 ug/dL
[2025-01-15 07:07] VITALS: BP 144/69; PULSE 77; RESP 18; TEMP 36.6; O2SAT 95
[2025-01-15 07:23] LABS: Glucose, Whole Blood 137 mg/dL (60-115)
[2025-01-15] MEDS: Nicotine 21 MG PATCH.TD24 TRANSDERMA (08:55)
[2025-01-15] MEDS: Aspirin Enteric Coated 81 MG TABLET.DR PO (08:56)
[2025-01-15] MEDS: Sucralfate 1 GM TABLET PO ×2 (08:56→13:34)
[2025-01-15] MEDS: Atorvastatin Calcium 40 MG TABLET PO (08:56)
[2025-01-15] MEDS: Magnesium Oxide 400 MG TABLET PO (08:56)
[2025-01-15] MEDS: Escitalopram Oxalate 10 MG TABLET PO (08:56)
[2025-01-15 08:57] VITALS: BP 144/69
[2025-01-15] MEDS: 0.9 % Sodium Chloride Flush 3 ML SYRINGE IVFLUSH (08:57)
[2025-01-15] MEDS: Heparin Sodium,Porcine 5,000 UNIT/ML VIAL 5000 UNIT SUBCUT (08:57)
[2025-01-15] MEDS: Furosemide 40 MG/4 ML VIAL IVPUSH (08:57)
--- NOTE | 2025-01-15 09:56 | MHC.CM.PN ---
Pt self-care, lives alone at home. Pt has home O2 & CPAP thorough [facility]. Pt states he has VNA services from [facility]. Pt will need assistance with transport at discharge. HCP on file and verified. PCP: Dr. Zari Henry
[2025-01-15] MEDS: Fluticasone Propionate Nasal 16 GM SPRAY 1 SPRAY NOSTRIL-B (10:35)
[2025-01-15 10:53] LABS: Glucose, Whole Blood 107 mg/dL (60-115)
--- NOTE | 2025-01-15 11:47 | HO.PM.IMPN ---
Subjective Subjective Date of Service: 01/15/25 Interval History: chf Review of Systems sob seems similar no chest pain Physical Exam Vital Signs: Vital Signs: Last Vital Signs Temp 97.9 F 01/15/25 07:07 Pulse 77 01/15/25 07:07 Resp 18 01/15/25 07:07 BP 144/69 H 01/15/25 08:57 Pulse Ox 95 01/15/25 07:07 O2 Del Method Nasal Cannula 01/15/25 07:07 O2 Flow Rate 3 01/15/25 07:07 Oxygen Flow Rate 2 01/14/25 02:49 BMI result Body Mass Index 24.9 Appearing in no acute distress lung sounds : air entry diminshed ,has few scattered rales heart regular rate rhythm, clear S1, S2 positive bowel sounds, abdomen is soft, nontender neuro patient is alert x3, no focal deficits Objective Data Active Medications Acetaminophen (Acetaminophen 325 Mg Tablet) 650 mg PO Q6H PRN PRN Reason: Pain, Mild 1-3,fever,headache Albuterol Sulfate (Albuterol Sulfate 90 Mcg 8 Gm Inhaler) 2 puff INHALE Q4H PRN PRN Reason: bronchospasm Last Admin: 01/14/25 21:25 Dose: 2 puff Documented By: BETY Aspirin (Aspirin Enteric Coated 81 Mg Tablet.) 81 mg PO DAILY [facility] Last Admin: 01/15/25 08:56 Dose: 81 mg Documented By: JACIEL Atorvastatin Calcium (Atorvastatin Calcium 40 Mg Tablet) 40 mg PO DAILY [facility] Last Admin: 01/15/25 08:56 Dose: 40 mg Documented By: JACIEL Calcium Carbonate (Calcium Carbonate 750 Mg Tab.Chew) 750 mg PO Q4H PRN PRN Reason: Heartburn Dextrose (Dextrose 50 % 25 Gm/50 Ml Syringe) 25 gm IVPUSH Q15M PRN; Protocol PRN Reason: per Hypoglycemia Standing Ord. Escitalopram Oxalate (Escitalopram Oxalate 10 Mg Tablet) 10 mg PO DAILY [facility] Last Admin: 01/15/25 08:56 Dose: 10 mg Documented By: JACIEL Fluticasone Propionate (Fluticasone Propionate Nasal 16 Gm [place]) 1 spray NOSTRIL-B BID [facility] Last Admin: 01/15/25 10:35 Dose: 1 spray Documented By: JACIEL Fluticasone/Vilanterol (Fluticasone/Vilanterol 100/25 Blst.W.Dev) 1 puff INHALE RDAILY [facility] Last Admin: 01/14/25 21:25 Dose: 1 puff Documented By: BETY Furosemide (Furosemide 40 Mg/4 Ml Vial) 40 mg IVPUSH BID@0900,1800 [facility]; Protocol Last Admin: 01/15/25 08:57 Dose: 40 mg Documented By: JACIEL Glucose (Glucose Gel 15 Gm Gel..Gram.) 15 gm PO Q15M PRN; Protocol PRN Reason: per Hypoglycemia Standing Ord. Heparin Sodium (Porcine) (Heparin Sodium,Porcine 5,000 Unit/Ml Vial) 5,000 unit SUBCUT Q12H [facility] Last Admin: 01/15/25 08:57 Dose: 5,000 unit Documented By: JACIEL Insulin Human Lispro (Insulin Lispro 100 Unit/Ml 3 Ml Vial) 0 unit SUBCUT QIDACHS [facility]; Protocol Last Admin: 01/15/25 11:37 Dose: Not Given Documented By: JACIEL Non-Admin Reason: No Insulin Coverage Magnesium Hydroxide (Milk Of Magnesia 30 Ml Oral.Susp) 30 ml PO DAILY PRN PRN Reason: Constipation Magnesium Oxide (Magnesium Oxide 400 Mg Tablet) 400 mg PO BIDPC [facility] Last Admin: 01/15/25 08:56 Dose: 400 mg Documented By: JACIEL Melatonin (Melatonin 3 Mg Tablet) 6 mg PO BEDTIME PRN PRN Reason: Insomnia Nicotine (Nicotine 21 Mg Patch.Td24) 21 mg TRANSDERMA DAILY [facility] Last Admin: 01/15/25 08:55 Dose: 21 mg Documented By: JACIEL Omeprazole (Omeprazole 40 Mg Capsule.Dr) 40 mg PO DAILY@0630 [facility] Last Admin: 01/15/25 05:06 Dose: 40 mg Documented By: BETY Ondansetron HCl (Ondansetron Hcl 4 Mg/2 Ml Vial) 4 mg IVPUSH Q8H PRN PRN Reason: Nausea and Vomiting Sodium Chloride (0.9 % Sodium Chloride Flush 3 Ml Syringe) 3 ml IVFLUSH QSHIFT [facility] Last Admin: 01/15/25 08:57 Dose: 3 ml Documented By: JACIEL Sucralfate (Sucralfate 1 Gm Tablet) 1 gm PO QID [facility] Last Admin: 01/15/25 08:56 Dose: 1 gm Documented By: JACIEL Trazodone HCl (Trazodone Hcl 100 Mg Tablet) 100 mg PO BEDTIME [facility] Last Admin: 01/14/25 21:21 Dose: 100 mg Documented By: BETY Labs 01/15/25 05:10 01/15/25 05:10 Labs: Laboratory Results - last 24 hr 01/14/25 01/14/25 01/14/25 11:44 16:20 20:57 MCV MCH MCHC RDW Plt Count MPV Absolute Nucleated RBC Nucleated RBC % (auto) Anion Gap Estim Creat Clear Calc Estimated GFR POC Glucose 85 74 120 H Random Glucose Calcium Iron TIBC % Saturation Unsat Iron Binding B-Natriuretic Peptide 01/15/25 01/15/25 01/15/25 05:10 05:19 07:11 MCV 72.0 L MCH 21.9 L MCHC 30.4 L RDW 17.8 H Plt Count 534 H MPV 9.7 Absolute Nucleated RBC 0.000 Nucleated RBC % (auto) 0.0 Anion Gap 15 Estim Creat Clear Calc 56.5 Estimated GFR 55 POC Glucose 107 137 H Random Glucose 68 Calcium 8.8 Iron 19 L TIBC 342 % Saturation 6 L Unsat Iron Binding 323 B-Natriuretic Peptide 782 H 01/15/25 10:47 MCV MCH MCHC RDW Plt Count MPV Absolute Nucleated RBC Nucleated RBC % (auto) Anion Gap Estim Creat Clear Calc Estimated GFR POC Glucose 107 Random Glucose Calcium Iron TIBC % Saturation Unsat Iron Binding B-Natriuretic Peptide Assessment and Plan (1) Acute exacerbation of CHF (congestive heart failure): Status: Acute Assessment and Plan: 49-year-old man admitted with acute on chronic congestive heart failure Acute on chronic hypoxic respiratory failure secondary to acute on chronic congestive heart failure with preserved ejection fraction IV Lasix 40 mg b.i.d. Continue oxygen supplementation to keep oxygen saturation greater than 90% i/o : 775ml negative. Echocardiogram Cardiology consultation Monitor on telemetry Daily weights Strict intake and output Acute renal failure on CKD stage 1 Likely secondary to fluid overload Diurese and monitor BMP Hypertension Low blood pressure Hold antihypertensives for now Diabetes mellitus type 2 Sliding scale, ADA diet Obstructive sleep apnea CPAP at bedtime GERD Continue PPI Mental health Continue home medications Microcytic anemia Stable H&H Check iron studies in the morning DVT prophylaxis with heparin Full code Quality Stroke Does the patient have a stroke diagnosis?: No VTE Prior VTE?: No VTE Risk Level:: Medical - moderate - high VTE Device Contraindication: Treatment Not Indicated VTE Drug Contraindication: N/A - Med Ordered
[2025-01-15 12:00] VITALS: BP 149/72; PULSE 70; RESP 18; TEMP 36.3; O2SAT 96
--- NOTE | 2025-01-15 13:42 | P.DS_ITS ---
DS: Providers Provider Date of Service: 01/15/25 Date of admission: 01/14/25 08:53 Date of discharge: 01/15/25 Primary care physician: Zari Henry MD Consults: 01/14/25 08:22 Consult to Cardiology Routine Consulting Provider: [facility] Reason for consultation: CHF Attending physician on discharge: Missael Ocasio Discharging clinician: Missael Ocasio DS: Diagnosis Discharge Diagnosis (1) Acute exacerbation of CHF (congestive heart failure): Status: Acute DS: Summary Hospital Course Hospital Course: HPI:49-year-old man presenting with complaints of increased shortness breath over the last 2-3 days. He noted increased leg edema shortness breath. He has known congestive heart failure and did report that he has had increased salt in his diet recently, reports compliance with his medication. He reported he has had 2 uses electric cart more and his oxygen during the day which he normally only uses at night. He denied chest pain, nausea, vomiting, diarrhea, recent travel, sick contacts BNP 702, oxygen saturation 84% on room air, creatinine 2.13, white blood cell count 14.8, chest x-ray showing atelectasis, no consolidation or effusion. Patient received a dose of IV Bumex in the ER. He will be admitted for further management and treatment of acute congestive heart failure. Hospital course: 49-year-old man presenting with complaints of increased shortness breath over the last 2-3 days-admitted for Acute on chronic hypoxic respiratory failure secondary to acute on chronic congestive heart failure with preserved ejection fraction: Patient was given IV diuretics, diuresed well, shortness of breaths seems to be improved significantly, EF is 40-45%. Patient seen by Cardiology recommended to adjust torsemide 60 mg in the day and [address] chest likely findings of chf/pulm edema(imaging studies reviewed with dr bajwa pulmonary) -clinically no patient seems to be improved, her consider repeating outpatient workup chest imaging, consider outpatient pulmonary follow-up. Patient also had KELVIN on CKD 3-Likely secondary to fluid overload: seems improved to baseline . microcytic anemia : iron and iron sats low ,tibc normal ( ?mixed iron def/aocd): denies any blood in stool or melena -consider further workup outpatient. plan: moniter cbc and bmp outpatient. switched torcemide 60 mg inmorning and continue torcemide 40 mg at night. moniter renal function and electrolytes. chf education given. CHF education given-if gains weight 2 lb or more in a week-will need outpatient Lasix dosing assessment with PCP. Consider Follow-up with cardiology outpatient. Assessment and plan coordination time spent 40 minute, patient understand and in agreement with the above plan. Time Attestation Total time managing care of this patient today: 40 mintues. Discharge Coordination Time (in mins): 40 min Quality: Safe Use of Opioids Does Pt have an Active Cancer Diagnosis on the Problem List?: No Quality: Stroke Does the patient have a stroke diagnosis?: No Physical Exam Vital Signs: Vital Signs: Last Vital Signs Temp 97.3 F 01/15/25 12:00 Pulse 70 01/15/25 12:00 Resp 18 01/15/25 12:00 BP 149/72 H 01/15/25 12:00 Pulse Ox 96 01/15/25 12:00 O2 Del Method Room Air 01/15/25 12:00 O2 Flow Rate 3 01/15/25 07:07 Oxygen Flow Rate 2 01/14/25 02:49 BMI result Body Mass Index 24.9 Appearing in no acute distress lung sounds : air entry improving when examined again. heart regular rate rhythm, clear S1, S2 positive bowel sounds, abdomen is soft, nontender neuro patient is alert x3, no focal deficits DS: Data Data Completed and Pending Completed studies during hospitalization [Text1]: Procedures Assistance with Respiratory Ventilation, Less than 24 Consecutive Hours, Continuous Positive Airway Pressure (11/19/24) Detoxification Services for Substance Abuse Treatment (04/26/24) Excision of Esophagus, Via Natural or Artificial Opening Endoscopic, Diagnostic (04/26/24) Excision of Stomach, Pylorus, Via Natural or Artificial Opening Endoscopic, Diagnostic (04/26/24) Introduction of Remdesivir Anti-infective into Peripheral Vein, Percutaneous Approach, [employer] (12/22/23) Labs on day of discharge: Laboratory Results - last 24 hr 01/14/25 01/14/25 01/15/25 16:20 20:57 05:10 WBC 14.1 H RBC 4.15 L Hgb 9.1 L Hct 29.9 L MCV 72.0 L MCH 21.9 L MCHC 30.4 L RDW 17.8 H Plt Count 534 H MPV 9.7 Absolute Nucleated RBC 0.000 Nucleated RBC % (auto) 0.0 Sodium 144 Potassium 3.6 Chloride 110 H Carbon Dioxide 23 Anion Gap 15 BUN 34 H Creatinine 1.36 Estim Creat Clear Calc 56.5 Estimated GFR 55 POC Glucose 74 120 H Random Glucose 68 Calcium 8.8 Iron 19 L TIBC 342 % Saturation 6 L Unsat Iron Binding 323 B-Natriuretic Peptide 782 H 01/15/25 01/15/25 01/15/25 05:19 07:11 10:47 WBC RBC Hgb Hct MCV MCH MCHC RDW Plt Count MPV Absolute Nucleated RBC Nucleated RBC % (auto) Sodium Potassium Chloride Carbon Dioxide Anion Gap BUN Creatinine Estim Creat Clear Calc Estimated GFR POC Glucose 107 137 H 107 Random Glucose Calcium Iron TIBC % Saturation Unsat Iron Binding B-Natriuretic Peptide Imaging Chest x-ray: Radiologist's impression: ITS Impressions Chest CT 01/14/25 14:35 IMPRESSION: Bilateral multifocal acute airspace disease versus sarcoidosis versus lymphoproliferative disorder among other etiologies.. Fleischner guidelines were followed. Electronically signed by: Jayden Camacho MD 01/14/2025 03:19 PM EDT Discharge Plan Discharge Anticipated Discharge Date/Time: 01/15/25 13:19 Patient Disposition: Home, Self-Care Discharge Diagnosis: Hf Referrals: Zari Henry MD [Primary Care Provider] - 1 Week Discharge Medications: New torsemide 20 mg tablet 20 mg PO DAILY Qty: 90 0RF Continued hydralazine 100 mg tablet 100 mg PO TID 30 Days Qty: 90 5RF trazodone 50 mg tablet 100 mg PO BEDTIME escitalopram oxalate 10 mg tablet 10 mg PO DAILY atorvastatin 40 mg tablet 40 mg PO DAILY metoprolol succinate 100 mg tablet extended release 24 hr 100 mg PO DAILY magnesium oxide 400 mg (241.3 mg magnesium) Tablet 400 mg PO BIDPC Qty: 60 0RF fluticasone propion-salmeterol [Advair Diskus] 250-50 mcg/dose blister with device 1 ea inhalation BID amlodipine 5 mg tablet 10 mg PO DAILY omeprazole 40 mg capsule,delayed release(DR/EC) 40 mg PO DAILY@0630 fluticasone propionate 50 mcg/actuation [place],Suspension 1 spray intranasal BID Qty: 16 0RF sucralfate 1 gram tablet 1 g PO QID isosorbide mononitrate 30 mg tablet extended release 24 hr 30 mg PO DAILY losartan 25 mg tablet 25 mg PO DAILY albuterol sulfate 90 mcg/actuation HFA aerosol inhaler 2 puff inhalation Q4H PRN (Reason: bronchospasm) (DME) Omnipod 5 G6 Intro Kit (Gen 5) Cartridge SUBCUT insulin lispro 100 unit/mL solution 100 unit DIRECTED Rx Instructions: INJECT up to 100 UNITS DIRECTED SEE ADMIN INSTRUCTIONS. USE PER INSULIN PUMP nicotine 21 mg/24 hr Patch 24 Hour 21 mg transdermal DAILY Qty: 90 0RF aspirin 81 mg tablet,delayed release (DR/EC) 81 mg PO DAILY torsemide 40 mg tablet 40 mg PO BID Discharge Orders: Discharge Order (Routine); Ordered 01/15/25 Ordered By: Missael Ocasio Diet: Advance to usual diet Activity on Discharge: As tolerated Stand Alone Forms: Patient Portal Discharge page Print Language: Urdu Care Plan Goals: Acute on chronic hypoxic respiratory failure secondary to acute on chronic congestive heart failure with preserved ejection fraction: started on iv diuretics , diuresed well-seems improving.echo done ef is 40-45%. switched torcemide 60 mg inmorning and continue torcemide 40 mg at night. moniter renal function and electrolytes. chf education given. CHF education given-if gains weight 2 lb or more in a week-will need outpatient Lasix dosing assessment with PCP. Consider Follow-up with cardiology outpatient. Health Concerns: as above. Plan of Treatment: as above. Assessment: as above. Patient Instructions: Heart Failure (DC)
--- NOTE | 2025-01-15 14:12 | PM.PNCARD ---
Subjective Subjective Date of Service: 01/15/25 Interval history: Seen examined at bedside. Feeling better. Physical Exam Vital Signs: Last Vital Signs Temp 97.3 F 01/15/25 12:00 Pulse 70 01/15/25 12:00 Resp 18 01/15/25 12:00 BP 149/72 H 01/15/25 12:00 Pulse Ox 96 01/15/25 12:00 O2 Del Method Room Air 01/15/25 12:00 O2 Flow Rate 3 01/15/25 07:07 Oxygen Flow Rate 2 01/14/25 02:49 BMI result Body Mass Index 24.9 GENERAL APPEARANCE: in no acute distress, pleasant. NECK: no carotid bruit, no jugular venous distention. SKIN: no suspicious lesions, warm and dry. HEART: no murmurs, regular rate and rhythm. LUNGS: Clear to auscultation. ABDOMEN: soft, nontender. EXTREMITIES: no edema. PERIPHERAL PULSES: equal. NEUROLOGIC: No gross deficits, AAO X 3 Objective Labs and Meds 01/15/25 05:10 01/15/25 05:10 Lab results: Laboratory Results - last 24 hr 01/14/25 01/14/25 01/15/25 16:20 20:57 05:10 WBC 14.1 H RBC 4.15 L Hgb 9.1 L Hct 29.9 L MCV 72.0 L MCH 21.9 L MCHC 30.4 L RDW 17.8 H Plt Count 534 H MPV 9.7 Absolute Nucleated RBC 0.000 Nucleated RBC % (auto) 0.0 Sodium 144 Potassium 3.6 Chloride 110 H Carbon Dioxide 23 Anion Gap 15 BUN 34 H Creatinine 1.36 Estim Creat Clear Calc 56.5 Estimated GFR 55 POC Glucose 74 120 H Random Glucose 68 Calcium 8.8 Iron 19 L TIBC 342 % Saturation 6 L Unsat Iron Binding 323 B-Natriuretic Peptide 782 H 01/15/25 01/15/25 01/15/25 05:19 07:11 10:47 WBC RBC Hgb Hct MCV MCH MCHC RDW Plt Count MPV Absolute Nucleated RBC Nucleated RBC % (auto) Sodium Potassium Chloride Carbon Dioxide Anion Gap BUN Creatinine Estim Creat Clear Calc Estimated GFR POC Glucose 107 137 H 107 Random Glucose Calcium Iron TIBC % Saturation Unsat Iron Binding B-Natriuretic Peptide Imaging Radiologist's impression: Impressions Chest CT 01/14/25 14:35 IMPRESSION: Bilateral multifocal acute airspace disease versus sarcoidosis versus lymphoproliferative disorder among other etiologies.. Fleischner guidelines were followed. Electronically signed by: Jayden Camacho MD 01/14/2025 03:19 PM EDT Progress Note: A&P Assessment and plan (1) Acute exacerbation of CHF (congestive heart failure): Status: Acute (2) Acute exacerbation of CHF (congestive heart failure): Status: Acute (3) KELVIN (acute kidney injury): Status: Acute Plan 49-year-old gentleman with background history of diastolic heart failure and alcohol use presenting with acute on chronic congestive heart failure. Clinically was volume overloaded and diuresed. Overall improving. He is on torsemide 40 mg twice a day. Increase the torsemide to 60 mg in the morning and 40 in the afternoon. Volume overload likely due to dietary indiscretions. I have explained to him that he has a 2 g sodium restriction and should be very careful in eating any package meals which do not have information about sodium. He has some wall motion abnormalities on echocardiography with inferior and mid inferolateral wall akinesis. He will need further evaluation as outpatient with ischemic workup. Rest of the medications can be continued as before. Thank you for allowing me to participate in the care of your patient. Please feel free to contact me if you have any questions. Time Spent With Patient Time: Total time managing care of this patient today ____ minutes. Progress Note: Quality Stroke Does the patient have a stroke diagnosis?: No Procedures Date of Service Date of Service: 01/15/25
--- NOTE | 2025-01-15 14:17 | MHC.CM.PN ---
Pt is medically cleared for discharge home today, he will transport home via [facility] shuttle.
[2025-01-15 16:06] LABS: Ferritin 38 ng/mL (20-250)
== END 2025-01-15 15:35 | disposition home or self-care (01) | DRG 194 ==
LOC: HO.ED 06:08 → HO.EDOVER 08:53 → HO.IMC 14:23
PROVIDERS: Admitting Provider Nurse Practitioner Acute Care; Emergency Provider Emergency Medicine; PCP Internal Medicine; Visit Provider Internal Medicine
DX: I13.0 Hypertensive heart and chronic kidney disease with heart failure and stage 1 through stage 4 chronic kidney disease, or unspecified chronic kidney disease (principal); J96.21 Acute and chronic respiratory failure with hypoxia; N17.9 Acute kidney failure, unspecified; D63.1 Anemia in chronic kidney disease; E11.22 Type 2 diabetes mellitus with diabetic chronic kidney disease; D50.9 Iron deficiency anemia, unspecified; F17.210 Nicotine dependence, cigarettes, uncomplicated; I50.33 Acute on chronic diastolic (congestive) heart failure; G47.33 Obstructive sleep apnea (adult) (pediatric); K21.9 Gastro-esophageal reflux disease without esophagitis; N18.30 Chronic kidney disease, stage 3 unspecified; Z71.6 Tobacco abuse counseling; Z79.4 Long term (current) use of insulin; Z79.82 Long term (current) use of aspirin; Z79.51 Long term (current) use of inhaled steroids; Z79.899 Other long term (current) drug therapy
CPT/HCPCS: 36415; 71045; 71250; 80048; 80053; 81001; 82728; 82947; 83540; 83880; 84484; 85025; 85027; 93005; 93306; 99285; J1644; J1939; J1940

== ENCOUNTER → 2025-01-14 03:01 | Outpatient (BNV) | payer OTHER, SELFPAY | PROVIDERS: Admitting Provider Nurse Practitioner Acute Care; Emergency Provider Emergency Medicine; PCP Internal Medicine; Visit Provider Internal Medicine Cardiovascular Disease | DX: R06.00 Dyspnea, unspecified (principal) | CPT/HCPCS: 93010; 93306 ==

== ENCOUNTER → 2025-01-14 04:07 | Outpatient (BNV) | payer OTHER, SELFPAY | PROVIDERS: Emergency Provider Emergency Medicine; PCP Internal Medicine; Visit Provider Radiology Diagnostic Radiology | DX: J98.11 Atelectasis (principal); R91.8 Other nonspecific abnormal finding of lung field | CPT/HCPCS: 71045; 71250 ==

== ENCOUNTER → 2025-01-14 08:53 | Outpatient (BNV) | payer OTHER, SELFPAY | PROVIDERS: Admitting Provider Nurse Practitioner Acute Care; Emergency Provider Emergency Medicine; PCP Internal Medicine; Visit Provider Internal Medicine | DX: I50.9 Heart failure, unspecified (principal) | CPT/HCPCS: 99223; 99239 ==

== ENCOUNTER → 2025-01-14 08:53 | Outpatient (BNV) | payer OTHER, SELFPAY | PROVIDERS: Admitting Provider Nurse Practitioner Acute Care; Emergency Provider Emergency Medicine; PCP Internal Medicine; Visit Provider Internal Medicine Cardiovascular Disease | DX: I50.9 Heart failure, unspecified (principal) | CPT/HCPCS: 99223 ==

== ENCOUNTER 2025-01-31 16:48 | Emergency (ER) | payer OTHER, SELFPAY ==
[2025-01-31 17:39] VITALS: BP 155/79; PULSE 70; RESP 18; TEMP 36.6; O2SAT 98; BMI 20.8
--- NOTE | 2025-01-31 17:40 | ED.GENADULT ---
HPI - General Adult General Chief complaint: Weakness Stated complaint: Weakness, abd pain Time Seen by Provider: 01/31/25 22:26 Source: patient, RN notes reviewed and old records reviewed Mode of arrival: ambulatory Limitations: no limitations History of Present Illness ED Provider: Ishan HPI narrative: 49-year-old female with a past medical history significant for COPD, chronic kidney disease, CHF, diabetes presents for evaluation of weakness. Patient reports that he has been in bed all week. He reports that his visiting nurse requested he be evaluated in the hospital due to his weakness over the last week. The patient reports some mild lower back pain he denies any fevers, chills, cough, shortness of breath, abdominal pain, nausea, vomiting he reports that his VNA was concerned about some endocrine issue. The patient denies any history of hypothyroidism Related Data Home Medications ?Medication ?Instructions ?Recorded ?Confirmed escitalopram oxalate 10 mg tablet 10 mg PO DAILY 08/01/22 01/14/25 trazodone 50 mg tablet 100 mg PO BEDTIME 08/01/22 01/14/25 aspirin 81 mg tablet,delayed 81 mg PO DAILY 10/06/22 01/14/25 release atorvastatin 40 mg tablet 40 mg PO DAILY 10/06/22 01/14/25 metoprolol succinate 100 mg 100 mg PO DAILY 10/06/22 01/14/25 tablet,extended release 24 hr fluticasone 250 mcg-salmeterol 50 1 ea inhalation BID 12/22/23 01/14/25 mcg/dose blistr powdr for inhalation (Advair Diskus) albuterol sulfate 90 mcg/actuation 2 puff inhalation Q4H PRN 04/26/24 01/14/25 aerosol inhaler bronchospasm amlodipine 5 mg tablet 10 mg PO DAILY 06/02/24 01/14/25 insulin pump cartridge,automated 06/11/24 12/05/24 dose,BT with controller subcutaneous (Omnipod 5 G6 Intro Kit (Gen 5) subcutaneous cartridge with controller) omeprazole 40 mg capsule,delayed 40 mg PO DAILY@0630 07/15/24 01/14/25 release insulin lispro 100 unit/mL 100 unit DIRECTED 11/19/24 01/14/25 subcutaneous solution torsemide 40 mg tablet 40 mg PO BID 12/20/24 01/14/25 isosorbide mononitrate 30 mg 30 mg PO DAILY 01/14/25 01/14/25 tablet,extended release 24 hr losartan 25 mg tablet 25 mg PO DAILY 01/14/25 01/14/25 sucralfate 1 gram tablet 1 g PO QID 01/14/25 01/14/25 Previous Rx's ?Medication ?Instructions ?Recorded magnesium oxide 400 mg (241.3 mg 400 mg PO BIDPC #60 tabs 08/20/22 magnesium) tablet hydralazine 100 mg tablet 100 mg PO TID 30 days #90 tabs 05/09/23 fluticasone propionate 50 1 spray intranasal BID #16 grams 07/19/24 mcg/actuation nasal spray,suspension nicotine 21 mg/24 hr daily 21 mg transdermal DAILY #90 ea 11/26/24 transdermal patch ferrous sulfate 325 mg (65 mg 325 mg PO DAILY #30 tabs 01/15/25 iron) tablet (iron) torsemide 20 mg tablet 20 mg PO DAILY #90 tabs 01/15/25 Allergies Allergy/AdvReac Type Severity Reaction Status Date / Time dulaglutide [From [facility]] Allergy Unknown Verified 01/31/25 17:41 metformin [METFORMIN] AdvReac Mild DIARRHEA, Verified 01/31/25 17:41 nausea and vomiting Review of Systems Constitutional: Constitutional: Denies body ache(s), Denies chills, Denies fever(s), Denies malaise and Reports weakness Eyes: Eyes: Denies blurry vision ENT: Denies vertigo, Denies dizziness, Denies dry mouth and Denies sore throat Cardiovascular: Cardiovascular: Denies chest pain and Denies dyspnea Respiratory: Respiratory: Denies cough and Denies dyspnea Gastrointestinal: Gastrointestinal: Denies abdominal pain, Denies nausea and Denies vomiting Musculoskeletal: Musculoskeletal: Reports back pain Integumentary/Breasts: Skin/Breast: Denies rash Neurologic: Denies vertigo, Denies dizziness and Reports weakness Psychiatric: Psychiatric: Denies anxiety [facility] Past Medical History Medical History (Updated 01/31/25 @ 23:37 by Mik Olmstead) Tobacco use CKD (chronic kidney disease) stage 1, GFR 90 ml/min or greater YARELIS (obstructive sleep apnea) Acute on chronic diastolic (congestive) heart failure KELVIN (acute kidney injury) Chronic heart failure with preserved ejection fraction (HFpEF) Depression Acute on chronic anemia Anxiety HLD (hyperlipidemia) Diabetes HTN (hypertension) Asthma PAD (peripheral artery disease) Surgical History History of esophagogastroduodenoscopy S/P angiogram of extremity Family History Family History Father Alzheimer disease CAD (coronary artery disease) Social History Social History Household Members: None Household Members Other:: 4 Housing: Apartment Do you presently have visiting nurse or other home services: Yes Unable to assess alcohol history related to: Unknown Alcohol intake: current Alcohol intake frequency: a few times a month Alcohol type: hard liquor Comment: pt is independent in room Patient Tobacco Use Status: Current everyday Tobacco user Tobacco use type: Cigarette Cigarette Packs Per Day: 1 Cigarettes Per Day: 20.0 Years Smoked: 35 e-Cigarette/Vaping Use: Never Used Second Hand Smoke Exposure: No Substance Use Type: Marijuana Advance Directives: Yes Advance Directives on File: Yes Advance Directives Date on File: 06/21/21 service: No Current occupational status: disabled Physical Exam ED Vital Signs: Vital Signs - 24 hr 01/31/25 17:39 01/31/25 22:04 01/31/25 23:27 Temperature 97.8 F 98.5 F 98.8 F Pulse Rate 70 76 74 Respiratory Rate 18 16 20 Blood Pressure 155/79 H 120/62 146/76 H Pulse Oximetry 98 99 99 Oxygen Delivery Method Room Air Room Air Room Air BMI result Body Mass Index 20.8 Const General: healthy appearing, comfortable, no acute distress, alert and awake Nutritional Appearance: well nourished Orientation/consciousness: patient oriented x3 HENMT Head: Yes normocephalic and Yes atraumatic Eyes Eyelids: Yes eyelids normal Conjunctivae: conjunctivae normal Sclerae: sclerae normal Corneas: corneas normal Pupils: Equal, round and reactive pupils present EOM: EOMs intact bilaterally Neck Neck: Yes full ROM Resp Effort & Inspection: normal respiratory effort, able to speak in complete sentences, no audible wheezes and not labored Auscultation: clear to auscultation bilaterally Cardio Rate: regular rate Rhythm: regular rhythm GI Inspection: No distended Palpation (GI): Soft to palpation, not firm, nontender, no guarding and not rigid Skin General skin exam: elasticity normal Neuro General: patient oriented x3 Cranial nerves: Yes Equal, round and reactive pupils present and Yes Bilaterally intact EOM present Cognition (Neuro): normal cognition Extrem Other: Moving all extremities well without any obvious deformities Course Course Course Narrative: RME performed by Karla Deal PA-C. Patient is a 49 year old assigned male at presenting to the emergency department with chills and weakness. Patient states he has felt generally unwell and his providers are concerned it may be something to do with his diabetes. Detailed physical exam and review of systems are deferred to the manager protein. EKG, labs, and swabs ordered. Patient placed back in the waiting room pending room availability and results. Medications Administered Generic Name Dose Route Start Last Admin Trade Name Freq PRN Reason Stop Dose Admin Sodium Chloride 1,000 mls @ 999 mls/hr 01/31/25 22:45 01/31/25 23:03 Ns IV 01/31/25 23:45 999 mls/hr .Q1H1M DIONISIO Administration Medical Decision Making Medical Decision Making [facility] Narrative: 49-year-old male presents for evaluation of weakness and lethargy. He was alert and oriented x4. He does have a mild leukocytosis to 11.3, but he has no localizing symptoms outside some mild lower back pain. He has no tenderness to the lumbar spine, straight leg raise negative. He has anemia baseline his hemoglobin and hematocrit today are about 3 points higher than his baseline. This could be due to some degree of dehydration as his creatinine is also elevated slightly above his baseline. his urine does not have any signs of blood, so I doubt obstructive uropathy leading to his KELVIN, this is more likely related to prerenal and decreased oral intake. we will treat with IV fluids, his glucose is elevated to 243 but no evidence of DKA. Differential Diagnosis Differential Diagnoses: The differential diagnosis associated with the presentation includes Failure to thrive Weakness UTI Viral syndrome Hyperthyroidism KELVIN Admission/Observation Consideration of admission/observation: Escalation of care including admission/observation considered Lab Data [facility] Lab Attestation statement: I reviewed the patient's lab results. as above 01/31/25 18:22 01/31/25 18:22 Labs: Lab Results 04/04/25 04/04/25 04/04/25 Range/Units 18:19 18:22 18:27 WBC 11.3 H (4.8-10.8) X10*3/uL RBC 5.71 D (4.60-5.80) X10*6/uL Hgb 12.4 L D (14.0-18.0) g/dl Hct 40.8 L D (42.0-52.0) % MCV 71.5 L (80.0-98.0) fL MCH 21.7 L (27.0-33.0) pg MCHC 30.4 L (31.0-36.0) g/dl RDW 21.3 H (11.0-16.0) % Plt Count 434 H (160-400) X10*3/uL MPV 10.5 (9.4-12.4) fL Immature Gran % (Auto) 0.4 (0.0-0.4) % Neut % (Auto) 76.3 H (45-73) % Lymph % (Auto) 15.6 L (20-40) % [place] % (Auto) 6.7 (2-11) % Eos % (Auto) 0.4 (0-4) % Baso % (Auto) 0.6 (0-2) % Lymph # (Auto) 1.8 (1.2-4.9) X10*3/uL [place] # (Auto) 0.8 (0.1-1.2) X10*3/uL Eos # (Auto) 0.1 (0.0-0.4) X10*3/uL Baso # (Auto) 0.1 (0.0-0.2) X10*3/uL Abs Immat Gran (auto) 0.05 H (0.00-0.03) X10*3/uL Absolute Neuts (auto) 8.6 H (2.0-8.3) x10*3/uL Absolute Nucleated RBC 0.000 (0.0-0.012) X10*3/uL Nucleated RBC % (auto) 0.0 (0.0-0.2) /100WBC Sodium 141 (135-145) mmol/L Potassium 3.7 (3.3-5.1) mmol/L Chloride 104 (96-108) mmol/L Carbon Dioxide 25 (22-29) mmol/L Anion Gap 16 (12-20) BUN 30 H (9-16) mg/dL Creatinine 2.09 H (0.5-1.4) mg/dL Estim Creat Clear Calc 33.9 Estimated GFR 34 Random Glucose 243 H (60-115) mg/dL Calcium 9.4 D (8.4-10.2) mg/dL Magnesium 1.6 (1.6-2.6) mg/dL Total Bilirubin 0.6 (0.0-1.0) mg/dL AST 27 (5-37) U/L ALT 16 (0-40) U/L Alkaline Phosphatase 115 (39-117) U/L Troponin I High Sens 3.6 (<3.5-35.0) ng/L B-Natriuretic Peptide 71 (<100) pg/mL Total Protein 7.5 (6.5-8.0) g/dL Albumin 4.1 (3.5-5.0) g/dL TSH 0.50 (0.32-4.0) uIU/mL Urine Color Yellow Urine Appearance Clear Urine pH 5.5 (5.0-9.0) Ur Specific Streetman 1.015 (1.005-1.025) Urine Protein 300 (3+) H (Neg-Trace) mg/dL Urine Glucose (UA) Negative (Negative) mg/dL Urine Ketones Negative (Negative) mg/dL Urine Blood Negative (Negative) Urine Nitrite Negative (Negative) Ur Leukocyte Esterase Trace H (Negative) Urine RBC 0-2 (0-2) /HPF Urine WBC 0-5 (0-5) /HPF Ur Squamous Epith Cells 0-2 (0-2) /HPF Urine Bacteria None Seen (None Seen) Hyaline Casts >20 (0-2) /LPF Influenza Type A (PCR) NEGATIVE (Negative) Influenza Type B (PCR) NEGATIVE (Negative) RSV RNA Qual (PCR) NEGATIVE (Negative) SARS-CoV-2 RNA (RT-PCR) NEGATIVE (Negative) Discharge Plan Discharge Clinical Impression: KELVIN (acute kidney injury) Patient Disposition: Home, Self-Care Instructions: Acute Kidney Injury (DC) Additional Instructions: your workup in the ER today was reassuring. You did have a mild KELVIN which is likely due to dehydration and decreased oral intake. No other significant findings. You were treated with IV fluids. Follow-up with your primary doctor, return for new or worsening symptoms Prescriptions: No Action hydralazine 100 mg tablet 100 mg PO TID 30 Days Qty: 90 5RF trazodone 50 mg tablet 100 mg PO BEDTIME escitalopram oxalate 10 mg tablet 10 mg PO DAILY atorvastatin 40 mg tablet 40 mg PO DAILY metoprolol succinate 100 mg tablet extended release 24 hr 100 mg PO DAILY magnesium oxide 400 mg (241.3 mg magnesium) Tablet 400 mg PO BIDPC Qty: 60 0RF fluticasone propion-salmeterol [Advair Diskus] 250-50 mcg/dose blister with device 1 ea inhalation BID amlodipine 5 mg tablet 10 mg PO DAILY omeprazole 40 mg capsule,delayed release(DR/EC) 40 mg PO DAILY@0630 fluticasone propionate 50 mcg/actuation Otter,Suspension 1 spray intranasal BID Qty: 16 0RF sucralfate 1 gram tablet 1 g PO QID isosorbide mononitrate 30 mg tablet extended release 24 hr 30 mg PO DAILY losartan 25 mg tablet 25 mg PO DAILY torsemide 20 mg tablet 20 mg PO DAILY Qty: 90 0RF ferrous sulfate [iron] 325 mg (65 mg iron) tablet 325 mg PO DAILY Qty: 30 0RF albuterol sulfate 90 mcg/actuation HFA aerosol inhaler 2 puff inhalation Q4H PRN (Reason: bronchospasm) (DME) Omnipod 5 G6 Intro Kit (Gen 5) Cartridge SUBCUT insulin lispro 100 unit/mL solution 100 unit DIRECTED Rx Instructions: INJECT up to 100 UNITS DIRECTED SEE ADMIN INSTRUCTIONS. USE PER INSULIN PUMP nicotine 21 mg/24 hr Patch 24 Hour 21 mg transdermal DAILY Qty: 90 0RF aspirin 81 mg tablet,delayed release (DR/EC) 81 mg PO DAILY torsemide 40 mg tablet 40 mg PO BID Print Language: Chinese
--- NOTE | 2025-01-31 17:42 | ECG_ITS ---
Test Reason : WEAKNESS Blood Pressure : */* mmHG Vent. Rate : 60 BPM Atrial Rate : 60 BPM P-R Int : 120 ms QRS Dur : 96 ms QT Int : 446 ms P-R-T Axes : 52 20 40 degrees QTcB Int : 446 ms Normal sinus rhythm Minimal voltage criteria for LVH, may be normal variant ( Sokolow-Ahmadi ) Possible Inferior infarct , age undetermined Abnormal ECG When compared with ECG of 14-Jan-2025 03:01, No significant change was found Referred By: Karla Deal Electronically Signed By: JESSICA LY
[2025-01-31 18:32] LABS: MANUAL DIFF FLAG NO
[2025-01-31 18:39] LABS: Appearance Urine Clear; Color Urine Yellow; Glucose Urine UA Negative (Negative); Leukocyte Esterase Urine Trace (Negative); Nitrite Urine Negative (Negative); PH 5.5 (5.0-9.0); Specific Gravity - Urine 1.015 (1.005-1.025); UMIC TRIGGER UACC YES; Urine Blood Negative (Negative); Urine Ketones Negative (Negative); Urine Protein 300 (3+) mg/dL (Neg-Trace)
[2025-01-31 18:53] LABS: Troponin-I High Sensitivity 3.6 ng/L (<3.5-35.0)
[2025-01-31 18:56] LABS: Alanine Aminotransferase 16 U/L (0-40); Albumin Level 4.1 g/dL (3.5-5.0); Alkaline Phosphatase 115 U/L (39-117); Anion Gap 16 (12-20); Aspartate Amino Transferase 27 U/L (5-37); Bilirubin Total 0.6 mg/dL (0.0-1.0); Blood Urea Nitrogen 30 mg/dL (9-16); Calcium 9.4 mg/dL (8.4-10.2); Carbon Dioxide 25 mmol/L (22-29); Chloride 104 mmol/L (96-108); Creatinine Clr Calc Pharmacy 33.9; Estimated Glomerular Filt Rate 34; Glucose Random 243 mg/dL (60-115); Magnesium 1.6 mg/dL (1.6-2.6); Potassium 3.7 mmol/L (3.3-5.1); Sodium 141 mmol/L (135-145); Total Protein 7.5 g/dL (6.5-8.0)
[2025-01-31 18:57] LABS: Bacteria Urine None Seen (None Seen); Hyaline Casts Urine >20 /LPF (0-2); RBC Urine 0-2 /HPF (0-2); Squamous Epithelial Cell Urine 0-2 /HPF (0-2); WBC Urine 0-5 /HPF (0-5)
[2025-01-31 19:06] LABS: Basophils Absolute Auto 0.1 X10*3/uL (0.0-0.2); Basophils Percent Auto 0.6 % (0-2); Eosinophils Absolute Auto 0.1 X10*3/uL (0.0-0.4); Eosinophils Percent Auto 0.4 % (0-4); Hematocrit 40.8 % (42.0-52.0); Hemoglobin 12.4 g/dl (14.0-18.0); Imm Gran Abs Auto 0.05 X10*3/uL (0.00-0.03); Imm Gran Pct Auto 0.4 % (0.0-0.4); Lymphocytes Absolute Auto 1.8 X10*3/uL (1.2-4.9); Lymphocytes Percent Auto 15.6 % (20-40); Mean Corpuscular HGB Conc 30.4 g/dl (31.0-36.0); Mean Corpuscular Hemoglobin 21.7 pg (27.0-33.0); Mean Corpuscular Volume 71.5 fL (80.0-98.0); Mean Platelet Volume 10.5 fL (9.4-12.4); Monocytes Absolute Auto 0.8 X10*3/uL (0.1-1.2); Monocytes Percent Auto 6.7 % (2-11); Neutrophils Absolute Auto 8.6 x10*3/uL (2.0-8.3); Neutrophils Percent Auto 76.3 % (45-73); Platelet Count 434 X10*3/uL (160-400); Red Blood Count 5.71 X10*6/uL (4.60-5.80); Red Cell Distribution Width 21.3 % (11.0-16.0); White Blood Count 11.3 X10*3/uL (4.8-10.8)
[2025-01-31 19:09] LABS: Influenza A PCR NEGATIVE (Negative); Influenza B PCR NEGATIVE (Negative); Resp Syncy Virus RNA Qual PCR NEGATIVE (Negative); SARS COV2 PCR INHOUSE NEGATIVE (Negative)
--- OUTSIDE RECORDS SUMMARY | 2025-01-31 21:59 | XMS_ITS | Encounter Summary ---
Author Organization [facility] [place] [address] Care Team Providers Care Escalation Engineer Name Role Phone Zari Henry MD Primary Care Provider [phone] Encounter Details Date Type Department Care Team (Late st Contact Info) Description 01/23/2025 Telephone Adult Medicine [address] [phone] Tonya Patel, RN Social History Tobacco Use Types Packs/Day Years Used Date Smoking Tobacco: Light Smoker Cigarettes 0.5 34.3 Started: 10/30/1990 Smokeless Tobacco: Never Alcohol Use Standard Drinks/Week Comments Yes 0 (1 standard drink = 0.6 oz pur e alcohol) Sex and Gender Information Value Date Recorded Sex Assigned at Not on file Legal Sex Male 4:34 AM EST Gender Identity Not on file Sexual Orientation Not on file documented as of this encounter Progress Notes * Tonya Patel RN - 01/23/2025 1:03 PM EDT Called and spoke to pt. He was informed his appointment with Dr Henry tomorrow is at 1:30 pm not 1:40 pm and advised him toarrive to the office at 1:15 pm. He is in agreement with this plan. documented in this encounter Plan of Treatment Upcoming Encounters Date Type Department Care Team (Late st Contact Info) Description 02/06/2025 1:30 PM EDT Office Visit Adult [address] [phone] Zari Henry MD [address] [place], [place] 03/06/2025 4:40 PM EDT Office Visit Endocrinology [address] [phone] Lea Alex PA [address] [place], [place] 03/07/2025 2:00 PM EDT Office Visit Pulmonolgy [facility] [address] [phone] Nisa Machado MD [address] [address] 04/23/2025 3:30 PM EDT Office Visit [address] [phone] Zari Henry MD [address] [place] [address] 06/10/2025 12:00 PM EDT [facility] [address] [place] [phone] Jong Hall MD [address] [phone] documented as of this encounter Visit Diagnoses Not on filedocumented in this encounter Care Teams Escalation Engineer Relationship Specialty Start Date End Date Zari Henry MD [address] [place] [address] PCP - General Internal Medicine 08/17/21 documented as of this encounter
--- OUTSIDE RECORDS SUMMARY | 2025-01-31 21:59 | XMS_ITS | Encounter Summary ---
Author Organization [facility] [place] [address] Care Team Providers Care Sample Stitcher Name Role Phone Zari Henry MD Primary Care Provider Reason for Visit * Reason Onset Date Comments Faxed Order 01/08/2025 [facility] re Resumption of Care orders 12/17/24 and 12/25/24 Encounter Details Date Type Department Care Team ([facility] Contact Info) Description 01/08/2025 Telephone Adult Medicine [address] [phone] Tanesha Estrada RN Faxed Order ([facility] Resumption of Care orders 12/17/24 and 12/25/24) Social History Tobacco Use Types Packs/Day Years [...] as of this encounter Progress Notes * Tanesha Estrada RN - 01/08/2025 12:06 PM EDT Received [facility] Resumption of Care orders 12/17/24 & 12/25/24. Please sign and fax [phone] documented in this encounter Plan of Treatment Upcoming Encounters Date Type Department Care Team (Late st Contact Info) Description 02/06/2025 1:30 PM EDT Office Visit Adult [address] [phone] Zari Henry MD [address] [place] [address] 03/06/2025 4:40 PM EDT Office Visit [address] [phone] Lea Alex PA [address] [place], [place] 03/07/2025 2:00 PM EDT Office Visit Pulmonolgy [facility] [address] [phone] Nisa Machado MD [address] [address] 04/23/2025 3:30 PM EDT Office Visit Adult [address] [phone] Zari Henry MD [address] [place] [address] 06/10/2025 12:00 PM EDT Office Visit Nephrology - [facility] [address] [place] [phone] Jong Hall MD [address] [phone] documented as of this encounter Visit Diagnoses Not on filedocumented in this encounter Care Teams Sample Stitcher Relationship Specialty Start Date End Date Zari Henry MD [address] [place] [address] PCP - General Internal Medicine 08/17/21 documented as of this encounter
--- OUTSIDE RECORDS SUMMARY | 2025-01-31 21:59 | XMS_ITS | Encounter Summary ---
Author Organization [facility] Address [address] [place] [address] Care Team Providers Care Bobj Developer Name Role Phone Zari Henry MD Primary Care Provider Encounter Details Date Type Department Care Team (Late Contact Info) Description 01/09/2025 Billing Patient Not Present Adult Medicine [address] [phone] Zari Henry MD [address] [place] [address] Social History Tobacco Use Types Packs/Day Years [...] on file documented as of this encounter Plan of Treatment Upcoming Encounters Date Type Department Care Team (Late Contact Info) Description 02/06/2025 1:30 PM EDT Office Visit Adult Medicine [address] [phone] Zari Henry MD [address] [place], [place] 03/06/2025 4:40 PM EDT Office Visit [address] [phone] Lea Alex PA [address] [place], [place] 03/07/2025 2:00 PM EDT Office Visit [facility]gy [facility] [address] [phone] Nisa Machado MD [address] [address] 04/23/2025 3:30 PM EDT Office Visit Adult Medicine South [address] [phone] Zari Henry MD [address] [place] [address] 06/10/2025 12:00 PM EDT [facility] [address] [place] [address] Jong Hall MD [address] [phone] documented as of this encounter Visit Diagnoses Not on filedocumented in this encounter Care Teams Bobj Developer Relationship Specialty Start Date End Date Zari Henry MD [address] [place] [address] PCP - General Internal Medicine 08/17/21 documented as of this encounter
--- OUTSIDE RECORDS SUMMARY | 2025-01-31 21:59 | XMS_ITS | Encounter Summary ---
Author Organization [facility] Address [address] [place] [address] Care Team Providers Care Career Development Consultant Name Role Phone Zari Henry MD Primary Care Provider Reason for Visit * Reason Onset Date Comments vna 01/31/2025 Encounter Details Date Type Department Care Team (Late st Contact Info) Description 01/31/2025 Telephone Adult Medicine [facility] [address] [place] [address] Zari Henry MD [address] [place] [address] vna Social History Tobacco Use Types Packs/Day [...] as of this encounter Progress Notes * Zari Henry MD - 01/31/2025 5:38 PM EDT He has canceled 2 hospital FU appts in the last week; he needs to be seen before I will give orders * Teo Pulido LPN - 01/31/2025 2:47 PM EDT Needs Vo to continue nursing Please review and advise Patient has a hospital follow up on 02/06/25 [facility]NA requesting a referral to Podiatry told the nurse the appointment for hospital follow needs to be in person Unless the provider will do a tele visit She will fax the order that needs to be signed to [phone] att : teo Please review and advise Please send response to nurse triage [facility] * Nga Nunez - 01/31/2025 2:37 PM EDT VNA CALL Which A office is calling? [facility] Full name of caller: margarito The caller is A nurse Is the caller at the patients home?: yes Reason for call: VNA is calling she needs Verbal order to continue senior care 2x a week for medication and disease process. Pt also need a referral for podiatry. They are requesting a telehealthappt with pcp VNA Office has been trying to fax over the 485 they need it sent back leann please. Does caller need an urgent call back? yes Was CONTACT Telephone # obtained above?: yes Fax #: documented in this encounter Plan of Treatment Upcoming Encounters Date Type Department Care Team (Late st Contact Info) Description 02/06/2025 1:30 PM EDT Office Visit Adult Medicine [address] [phone] Zari Henry MD [address] [place] [address] 03/06/2025 4:40 PM EDT Office Visit [address] [phone] Lea Alex PA [address] [place], [place] 03/07/2025 2:00 PM EDT [facility] [address] [phone] Nisa Machado MD [address] [address] 04/23/2025 3:30 PM EDT Office Visit Adult Medicine [address] [phone] Zari Henry MD [address] [place] [address] 06/10/2025 12:00 PM EDT Office Visit [facility]rology - [facility] [address] [place] [address] Jong Hall MD [address] [phone] documented as of this encounter Visit Diagnoses Not on filedocumented in this encounter Care Teams Career Development Consultant Relationship Specialty Start Date End Date Zari Henry MD [address] [place] [address] PCP - General Internal Medicine 08/17/21 documented as of this encounter
--- OUTSIDE RECORDS SUMMARY | 2025-01-31 21:59 | XMS_ITS | Encounter Summary ---
Author Organization [facility] Address [address] [place] [address] Care Team Providers Care Dairy Helper Name Role Phone Zari Henry MD Primary Care Provider [phone] Encounter Details Date Type Department Care Team (Late Contact Info) Description 01/30/2025 Billing Patient Not Present Adult Medicine [address] [phone] Zari Henry MD [address] [place] [address] Social History Tobacco Use Types Packs/Day Years [...] 1:30 PM EDT Office Visit Adult Medicine [address] [phone] Zari Henry MD [address] [place], [place] 03/06/2025 4:40 PM EDT Office Visit [address] [phone] Lea Alex PA [address] [place], [place] 03/07/2025 2:00 PM EDT Office Visit Pul[facility]gy [facility] [address] [phone] Nisa Machado MD [address] [address] 04/23/2025 3:30 PM EDT Office Visit Adult Medicine South [address] [phone] Zari Henry MD [address] [place] [address] 06/10/2025 12:00 PM EDT [facility] [address] [place] [address] Jong Hall MD [address] [phone] documented as of this encounter Visit Diagnoses Not on filedocumented in this encounter Care Teams Dairy Helper Relationship Specialty Start Date End Date Zari Henry MD [address] [place] [address] PCP - General Internal Medicine 08/17/21 documented as of this encounter
--- OUTSIDE RECORDS SUMMARY | 2025-01-31 21:59 | XMS_ITS | Clinical Summary ---
Author Organization [facility] Address [address] [place] [address] Phone Care Team Providers Care Passenger Car Conductor Name Role Phone Zari Henry MD Primary Care Provider Allergies Active Allergy Reactions Criticality Noted Date Comments Dulaglutide Nausea And Vomiting 06/22/2021 Metformin 07/04/2017 Gi distress Medications aspirin 81 mg EC tablet Take 1 tablet (81 mg total) by mouth 1 (one) time each day. 1 Active gabapentin (NEURONTIN) 300 mg capsule Take 1 capsule (300 mg total) by mouth 3 (three) times a day. 2 Active lisinopril (PRINIVIL,ZESTR IL) 40 mg tablet Take 1 tablet (40 mg total) by mouth 1 (one) time each day. 2 Active metoprolol succinate (TOPROL-XL) 100 mg 24 hr tablet Take 1 tablet (100 mg total) by mouth 1 (one) time each day. 2 Active nicotine (Nicotrol) 10 mg inhaler INHALE 1 PUFF INTO THE LUNGS NEEDED FOR SMOKING CESSATION EVERY 2 HOURS. 1 Active tadalafiL (CIALIS) 20 mg tablet Take 1 tablet (20 mg total) by mouth. 0 Active insulin pump cart,cont inf,BT (Omnipod Dash Pods, Gen 4,) cartridge Inject 1 each under the skin every 3 (three) days. 10 each 3 4 Active isosorbide mononitrate (IMDUR) 30 mg 24 hr tablet TAKE 1 TABLET BY MOUTH EVERY DAY 90 tablet 1 5 Active Ventolin HFA 90 mcg/actuation inhaler INHALE 2 PUFFS INTO THE LUNGS EVERY 4 HOURS NEEDED FOR WHEEZING FOR UP TO 30 DAYS. 18 each 2 4 Active amLODIPine (NORVASC) 5 mg tablet Take 2 tablets (10 mg total) by mouth 1 (one) time each day. 30 tablet 4 Active oxyCODONE-aceta minophen (PERCOCET) 5-325 mg per tabletIndicatio ns:Muscle cramp Take 1 tablet by mouth every 6 (six) hours if needed for severe pain for up to 15 doses. Max Daily Amount: 4 tablets 15 tablet 5 Active Advair Diskus 250-50 mcg/dose diskus inhaler Inhale 1 puff by mouth 2 (two) times a day. Active hydrALAZINE (APRESOLINE) 100 mg tablet Take 1 tablet (100 mg total) by mouth 3 (three) times a day. Active magnesium oxide (MAG-OX) 400 mg magnesium tablet Take 1 tablet (400 mg total) by mouth 1 (one) time each day. 90 tablet 1 5 Active insulin lispro 100 unit/mL injectionIndica tions:Type 2 diabetes mellitus with diabetic nephropathy ([facility]) INJECT 100 UNITS DIRECTED SEE ADMIN INSTRUCTIONS. USE PER INSULIN PUMP 30 mL 2 5 Active diclofenac (VOLTAREN) 1 % topical gel Apply 2 g topically 2 (two) times a day. 200 g 1 5 Active atorvastatin (LIPITOR) 40 mg tablet Take 1 tablet (40 mg total) by mouth 1 (one) time each day. 90 tablet 1 5 Active escitalopram (LEXAPRO) 10 mg tablet Take 1 tablet (10 mg total) by mouth 1 (one) time each day. 90 tablet 1 5 Active omeprazole (PriLOSEC) [address] capsule Take 1 capsule (40 mg total) by mouth 1 (one) time each day. 90 capsule 1 5 Active sucralfate (CARAFATE) 1 gram tablet Take 1 tablet (1 g total) by mouth 4 (four) times a day. 360 tablet 1 5 Active torsemide (DEMADEX) 20 mg tablet Take 2 tablets (40 mg total) by mouth 2 (two) times a day. 180 tablet 1 5 Active traZODone (DESYREL) 100 mg tablet Take 1 tablet (100 mg total) by mouth at bedtime. Active escitalopram (LEXAPRO) 10 mg tablet Take 1 tablet (10 mg total) by mouth 1 (one) time each day. 2 01/14/20 Discontinu ed(Reorder ) omeprazole (PriLOSEC) [address] capsule Take 1 capsule (40 mg total) by mouth 1 (one) time each day. 1 01/14/20 25 Discontinu ed(Reorder ) sucralfate (CARAFATE) 1 gram tablet Take 1 Tablet by mouth 4 times daily. 4 01/14/20 Discontinu ed(Reorder ) atorvastatin (LIPITOR) 40 mg tablet TAKE 1 TABLET BY MOUTH EVERY DAY 90 tablet 1 5 01/14/20 Discontinu ed(Reorder ) torsemide (DEMADEX) 20 mg tablet Take 2 tablets (40 mg total) by mouth 2 (two) times a day. 5 01/14/20 Discontinu ed(Reorder ) Active Problems Problem Noted Date Diagnosed Date DM (diabetes mellitus), type 2 with peripheral vascular complications 12/05/2024 MAGDA (iron deficiency anemia) 04/06/2023 Requires supplemental oxygen 04/06/2023 CHF (congestive heart failure) 01/06/2023 Obstructive sleep apnea syndrome 05/09/2022 Adrenal mass 03/24/2022 Claudication of both lower extremities 2 Sleep related hypoxia 08/17/2021 Overview (07/12/2024): On [...] Encounters Date Type Department Care Team Description 01/31/2025 Telephone Adult Medicine [address] [phone] Zari [place] MD vna 01/30/2025 Billing Patient Not Present Adult Medicine [address] [phone] Zari Henry MD 01/23/2025 Telephone Adult Medicine [address] [phone] Zari Henry MD Hospital Follow-up 01/23/2025 Telephone Adult Medicine [address] [phone] Tonya Patel, CARLITOS 01/17/2025 Telephone Adult Medicine [address] [phone] Zari Henry MD Hospital Follow-up 01/17/2025 Telephone Adult Medicine [address] [phone] Zari Henry MD vna 01/13/2025 Telephone Adult [address] [phone] Debbie Pavon MA Request For Order(s) 01/10/2025 Telephone Adult [address] [phone] Tanesha Estrada, RN Faxed Order ([facility] Orders dated 12/31/24) 01/09/2025 Billing Patient Not Present Adult [address] [phone] Zari Henry MD 01/08/2025 Telephone Adult [address] [phone] Tanesha Estrada, RN Faxed Order ([facility] Resumption of Care orders 12/17/24 and 12/25/24) 01/02/[address] [phone] Zari Henry MD VNA Call 12/24/2024 10:30 AM EST Office Visit [address] [phone] Zari Henry MD Acute on chronic respiratory failure with hypoxia (CMS/HCC) (Primary Dx); DM (diabetes mellitus), type 2 with peripheral vascular complications (CMS/HCC); HTN (hypertension), benign; Acute on chronic right-sided congestive heart failure (CMS/HCC); PAD (peripheral artery disease) (CMS/HCC); KELVIN (acute kidney injury) ([facility]/HCC) 12/24/2024 Telephone Adult [address] [phone] Ashleigh Verdugo MA Forms/questionnaires ([employer]) 12/17/[address] [phone] Lea Alex PA MEDICATION 12/17/2024 Telephone Adult Medicine [address] [phone] John Pulido LPN [facility] Follow-up 12/10/2024 Telephone Adult [address] [phone] Tonya Patel RN 12/06/[address] [phone] Lea Alex PA VNA CALL 12/05/2024 10:30 AM EST Office Visit [address] [phone] Zari Henry MD Acute on chronic right-sided congestive heart failure (CMS/HCC) (Primary Dx); HTN (hypertension), benign; Other hyperlipidemia; DM (diabetes mellitus), type 2 with peripheral vascular complications (CMS/HCC); Pneumonia of right lung due to infectious organism, unspecified part of lung 12/05/2024 Telephone Adult [address] [phone] Zari Henry MD Forms/questionnaires 12/03/2024 Telephone Adult [address] [phone] Zari Henry MD vna 12/01/2024 5:01 AM EST - 12/01/2024 9:54 AM EST Emergency [facility] Emergency [address] [place] [phone] Rikki Acosta MD Edema, unspecified type (Primary Dx); Muscular deconditioning; Muscle cramp Discharge Disposition: Home or Self Care 11/28/2024 Telephone Adult Medicine [address] [phone] Zari Henry MD vna 11/28/2024 Telephone Adult [address] [phone] Zari Henry MD Hospital Follow-up (Patient to be discharged right now but can't go until his has his follow up scheduled) 11/12/2024 Telephone [facility] Hematology Oncology [address] [place] [address] Moe Fernandes MD from Last 3 Months Immunizations Name Administration [...] type 2 with renal complications (CMS/HCC) 01/31/2017 Microalbuminuria 04/14/2017 Polycythemia 06/04/2018 Condyloma acuminata 11/18/2020 Condyloma ac uminata 11/19 penis YARELIS (obstructive sleep apnea) 05/09/2022 CHF (congestive heart failure) (CMS/HCC) 01/07/20 DM (diabetes mellitus), type 2 with peripheral vascular complications (CMS/HCC) 12/05/2024 Family History Medical History Relation Name Comments Colon cancer Neg Hx Social History Tobacco Use Types Packs/Day Years Used Date Smoking Tobacco: Light Smoker Cigarettes 0.5 34.3 Started: 10/30/1990 Smokeless Tobacco: Never Tobacco Cessation:Ready [...] Sign Reading Time Taken Comments Blood Pressure 112/48 12/24/2024 10:16 AM EST Pulse 78 12/24/2024 10:16 AM EST Temperature 36.4 ??C (97.5 ??F) 12/24/2024 10:[address] Respiratory Rate 16 12/24/2024 10:16 AM EST Oxygen Saturation 96% 12/24/2024 10:16 AM EST Inhaled Oxygen Concentration - - Weight 66.7 kg (147 lb) 12/24/2024 10:16 AM EST Height 165.1 cm (5' 5 ) 12/24/2024 10:16 AM EST Body Mass Index 24.46 12/24/2024 10:16 AM EST Plan of Treatment Upcoming Encounters Date Type Department Care Team (Late st Contact Info) Description 02/06/2025 1:30 PM EDT Office Visit Adult Medicine [address] [phone] Zari Henry MD [address] [place] [address] 03/06/2025 4:40 PM EDT Office Visit [address] [phone] Lea Alex PA [address] [place] [address] 03/07/2025 2:00 PM EDT Office Visit Pulmonolgy [facility] [address] [phone] Nisa Machado MD [address] [address] 04/23/2025 3:30 PM EDT Office Visit Adult Medicine [facility] [address] [place] [phone] Zari [place] MD [address] [place] 06/10/2025 12:00 PM EDT Office Visit [facility] [address] [place] [phone] Jong Hall MD [address] [facility] [address] [place] [phone] Health Maintenance Due Date Last Done Comments [...] Signed Date: 12/01/2024 09:17 ET Workstation ID: [id number] Transcribed By: Self Edit Transcribed Date: 12/01/2024 [...] Signed Date: 12/01/2024 09:17 ET Workstation ID: [id number] Transcribed By: Self Edit Transcribed Date: 12/01/2024 09:16 ET Rikki Acosta MD CV VASCULAR PROCEDURES Final R esult * Troponin I high sensitivity (12/01/2024 7:34 AM EST) Only the most recent of2 resultswithin the time period is included. [facility] High Sensitivity Troponin I 18 <=79 ng/L LAB CHEMISTRY METHOD 12/01/2024 8:16 AM EST [facility] Blood Venous blood specimen / Unknown Venipuncture / Unknown 12/01/2024 7:34 AM EST 12/01/2024 7:46 AM EST Narrative [facility] - 12/01/2024 8:16 AM EST High levels of biotin in samples may falsely decrease hsTroponin values. ??Use caution when interpreting hsTroponin results in patients taking biotin who exhibit renal impairment (eGFR <60) or in patients taking more than 20 mg/day of biotin. Chris Leija MD LAB BLOOD ORDERABLES Final Resu lt [facility] [address] [place] [address], * ECG 12 lead (12/01/2024 5:18 AM EST) Only the most recent of2 resultswithin the time period is included. [facility] Ventricular Rate ECG 83 BPM GEMUSE Atrial Rate 83 BPM GEMUSE P-R Interval 124 ms GEMUSE QRS Duration 92 ms GEMUSE Q-T Interval 370 ms GEMUSE QTc 434 ms GEMUSE P Wave [place] 48 degrees GEMUSE R [place] 40 degrees GEMUSE T [place] 52 degrees GEMUSE ECG Interpretation Normal sinus [...] Signed Date: 12/01/2024 09:16 ET Workstation ID: [id number] Transcribed By: Self Edit Transcribed Date: 12/01/2024 [...] Signed Date: 12/01/2024 09:16 ET Workstation ID: [id number] Transcribed By: Self Edit Transcribed Date: 12/01/2024 09:15 ET Chris Leija MD IMG XR PROCEDURES Final Result * Beta hydroxybutyrate (12/01/2024 2:44 AM EST) [facility] Beta-Hydroxybu tyrate 1.4 0.2 - 2.8 mg/dL LAB CHEMISTRY METHOD 12/01/2024 8:01 AM EST [facility] Blood Venous blood specimen / Unknown Venipuncture / Unknown 12/01/2024 2:44 AM EST 12/01/2024 3:07 AM EST Rikki Acosta MD LAB BLOOD ORDERABLES Final Res ult [facility] [address] [place] [address], [place] [phone] * (ABNORMAL) CBC auto differential (12/01/2024 2:44 AM EST) Only the most recent of2 resultswithin the time period is included. [facility] WBC 18.0(H) 4.8 - 10.8 K/mcL LAB HEMETOLOGY METHOD 12/01/2024 3:12 AM [facility] RBC 4.20(L) 4.50 - 5.50 M/mcL LAB HEMETOLOGY METHOD 12/01/2024 3:12 AM [facility] Hemoglobin 10.3(L) 13.5 - 17.5 g/dL LAB HEMETOLOGY METHOD 12/01/2024 3:12 AM [facility] Hematocrit 33.0(L) 42.0 - 54.0 % LAB HEMETOLOGY METHOD 12/01/2024 3:12 AM [facility] MCV 78.6(L) 79.0 - 98.0 FL LAB HEMETOLOGY METHOD 12/01/2024 3:12 AM [facility] MCH 24.5(L) 27.0 - 32.0 pcg LAB HEMETOLOGY METHOD 12/01/2024 3:12 AM [facility] MCHC 31.2(L) 32.0 - 37.0 g/dL LAB HEMETOLOGY METHOD 12/01/2024 3:12 AM [facility] RDW 21.8(H) 11.0 - 15.0 % LAB HEMETOLOGY METHOD 12/01/2024 3:12 AM [facility] Platelets 317 130 - 400 K/mcL LAB HEMETOLOGY METHOD 12/01/2024 3:12 AM [facility] MPV 10.3 7.0 - 11.0 FL LAB HEMETOLOGY METHOD 12/01/2024 3:12 AM [facility] NRBC 0.0 <1.0 % LAB HEMETOLOGY METHOD 12/01/2024 3:12 AM [facility] NRBC Absolute 0.00 <0.10 K/mcL LAB HEMETOLOGY METHOD 12/01/2024 3:12 AM [facility] Neutrophils Relative 94.2 % LAB HEMETOLOGY METHOD 12/01/2024 3:12 AM [facility] Lymphocytes Relative 3.6 % LAB HEMETOLOGY METHOD 12/01/2024 3:12 AM [facility] Monocytes Relative 0.8 % LAB HEMETOLOGY METHOD 12/01/2024 3:12 AM [facility] Eosinophils Relative 0.1 % LAB HEMETOLOGY METHOD 12/01/2024 3:12 AM [facility] Basophils Relative 0.2 % LAB HEMETOLOGY METHOD 12/01/2024 3:12 AM [facility] Immature Granulocytes Relative 1.1 % LAB HEMETOLOGY METHOD 12/01/2024 3:12 AM EST [facility] Neutrophils Absolute 16.93(H) 1.50 - 7.00 K/mcL LAB HEMETOLOGY METHOD 12/01/2024 3:12 AM EST [facility] Lymphocytes Absolute 0.64(L) 1.00 - 5.00 K/mcL LAB HEMETOLOGY METHOD 12/01/2024 3:12 AM EST [facility] Monocytes Absolute 0.15(L) 0.20 - 1.00 K/mcL LAB HEMETOLOGY METHOD 12/01/2024 3:12 AM EST [facility] Eosinophils Absolute 0.01 0.00 - 0.50 K/mcL LAB HEMETOLOGY METHOD 12/01/2024 3:12 AM EST [facility] Basophils Absolute 0.03 0.00 - 0.20 K/mcL LAB HEMETOLOGY METHOD 12/01/2024 3:12 AM EST [facility] Immature Granulocytes Absolute 0.20(H) 0.00 - 0.03 K/mcL LAB HEMETOLOGY METHOD 12/01/2024 3:12 AM EST [facility] Blood Venous blood specimen / Unknown Venipuncture / Unknown 12/01/2024 2:44 AM EST 12/01/2024 3:07 AM EST us Chris Leija MD LAB BLOOD ORDERABLES Final Resu lt [facility] [address] [place] [address], * (ABNORMAL) B-type natriuretic peptide (12/01/2024 2:44 AM EST) BNP 300(H) <=100 pcg/mL LAB CHEMISTRY METHOD 12/01/2024 3:38 AM EST [facility] Blood Venous blood specimen / Unknown Venipuncture / Unknown 12/01/2024 2:44 AM EST 12/01/2024 3:07 AM EST us Chris Leija MD LAB BLOOD ORDERABLES Final Resu lt Performing Organization Address [facility] Co de Phone Number [facility] [address] [place] [address], [place] [phone] * (ABNORMAL) Magnesium (12/01/2024 2:44 AM EST) Magnesium 1.8(L) 1.9 - 2.6 mg/dL LAB CHEMISTRY METHOD 12/01/2024 3:41 AM EST [facility] Blood Venous blood specimen / Unknown Venipuncture / Unknown 12/01/2024 2:44 AM EST 12/01/2024 3:07 AM EST us Chris Leija MD LAB BLOOD ORDERABLES Final Resu lt Performing Organization Address [facility] Co de Phone Number [facility] [address] [place] [address], [place] [phone] * (ABNORMAL) Lipase (12/01/2024 2:44 AM EST) Pathologist [facility] Lipase 78(H) 13 - 75 unit/L LAB CHEMISTRY METHOD 12/01/2024 3:41 AM EST [facility] Blood Venous blood specimen / Unknown Venipuncture / Unknown 12/01/2024 2:44 AM EST 12/01/2024 3:07 AM EST us Chris Leija MD LAB BLOOD ORDERABLES Final Resu lt Performing Organization Address [facility]/ZIP Co de Phone Number [facility] [address] [place] [address], [place] [phone] * CK total and CKMB (12/01/2024 2:44 AM EST) Total CK 176 22 - 269 unit/L LAB CHEMISTRY METHOD 12/01/2024 8:01 AM EST [facility] CK-MB 2.2 1.0 - 3.6 ng/mL LAB CHEMISTRY METHOD 12/01/2024 8:01 AM [facility] CK-MB Index 0.0 0.0 - 5.0 LAB CHEMISTRY METHOD 12/01/2024 8:01 AM [facility] Blood Venous blood specimen / Unknown Venipuncture / Unknown 12/01/2024 2:44 AM EST 12/01/2024 3:07 AM EST us Rikki Acosta MD LAB BLOOD ORDERABLES Final Res ult [facility] [address] [place] [address], [place] [phone] * (ABNORMAL) Comprehensive metabolic panel (12/01/2024 2:44 AM EST) Only the most recent of2 resultswithin the time period is included. Sodium 137 133 - 145 mmol/L LAB CHEMISTRY METHOD 12/01/2024 3:56 AM [facility] Potassium 4.1 3.5 - 5.5 mmol/L LAB CHEMISTRY METHOD 12/01/2024 3:56 AM [facility] Chloride 106 96 - 110 mmol/L LAB CHEMISTRY METHOD 12/01/2024 3:56 AM [facility] CO2 24 21 - 32 mmol/L LAB CHEMISTRY METHOD 12/01/2024 3:56 AM [facility] Anion Gap 7 3 - 11 LAB CHEMISTRY METHOD 12/01/2024 3:56 AM [facility] Glucose 410(HH) 70 - 100 mg/dL LAB CHEMISTRY METHOD 12/01/2024 3:56 AM [facility] BUN 51(H) 5 - 25 mg/dL LAB CHEMISTRY METHOD 12/01/2024 3:56 AM [facility] Creatinine 2.15(H) 0.70 - 1.30 mg/dL LAB CHEMISTRY METHOD 12/01/2024 3:56 AM [facility] eGFR 37(L) >=60 mL/min/1. 73m2 LAB CHEMISTRY METHOD 12/01/2024 3:56 AM [facility] Comment:Calculation based on the??Chronic Kidney Disease Epidemiology Collaboration (CKD-EPI) equation refit??without adjustment for race. BUN/Creatinine Ratio 23.7 LAB CHEMISTRY METHOD 12/01/2024 3:56 AM [facility] Calcium 8.6 8.5 - 10.5 mg/dL LAB CHEMISTRY METHOD 12/01/2024 3:56 AM [facility] AST (SGOT) 23 10 - 42 unit/L LAB CHEMISTRY METHOD 12/01/2024 3:56 AM [facility] ALT (SGPT) 67(H) 10 - 60 unit/L LAB CHEMISTRY METHOD 12/01/2024 3:56 AM [facility] Alkaline Phosphatase 131(H) 42 - 121 unit/L LAB CHEMISTRY METHOD 12/01/2024 3:56 AM [facility] Total Protein 6.3 6.0 - 8.0 g/dL LAB CHEMISTRY METHOD 12/01/2024 3:56 AM [facility] Albumin 3.0(L) 3.2 - 5.0 g/dL LAB CHEMISTRY METHOD 12/01/2024 3:56 AM [facility] Total Bilirubin 0.2 0.0 - 1.4 mg/dL LAB CHEMISTRY METHOD 12/01/2024 3:56 AM [facility] Blood Venous blood specimen / Unknown Venipuncture / Unknown 12/01/2024 2:44 AM EST 12/01/2024 3:07 AM EST us Chris Leija MD LAB BLOOD ORDERABLES Final Resu lt [facility] [address] [place] [address], [place] [phone] * ECG-Annotated (12/01/2024) Only the most recent of2 resultswithin the time period is included. us Provider Onbase MD ECG ORDERABLES Final Result * (ABNORMAL) Hemoglobin A1c (11/08/2024 12:32 PM EST) Pathologist [facility] Hemoglobin A1C 8.4(H) <6.5 % LAB CHEMISTRY METHOD 11/08/2024 6:43 PM [facility] Mean Bld Glu Estim. 194 mg/dL LAB CHEMISTRY METHOD 11/08/2024 6:43 PM [facility] Blood Venous blood specimen / Unknown Venipuncture / Unknown 11/08/2024 12:32 PM EST 11/08/2024 12:32 PM EST Lea KARIMI LAB BLOOD ORDERABLES Final Resul t [facility] [address] [place] [address], [place] [phone] * (ABNORMAL) Basic metabolic panel (11/08/2024 12:32 PM EST) Pathologist [facility] Sodium 137 133 - 145 mmol/L LAB CHEMISTRY METHOD 11/09/2024 12:22 AM [facility] Potassium 3.6 3.5 - 5.5 mmol/L LAB CHEMISTRY METHOD 11/09/2024 12:22 AM [facility] Chloride 105 96 - 110 mmol/L LAB CHEMISTRY METHOD 11/09/2024 12:22 AM [facility] CO2 26 21 - 32 mmol/L LAB CHEMISTRY METHOD 11/09/2024 12:22 AM [facility] Anion Gap 6 3 - 11 LAB CHEMISTRY METHOD 11/09/2024 12:22 AM [facility] Glucose 125(H) 70 - 100 mg/dL LAB CHEMISTRY METHOD 11/09/2024 12:22 AM [facility] BUN 26(H) 5 - 25 mg/dL LAB CHEMISTRY METHOD 11/09/2024 12:22 AM [facility] Creatinine 1.42(H) 0.70 - 1.30 mg/dL LAB CHEMISTRY METHOD 11/09/2024 12:22 AM [facility] eGFR 60 >=60 mL/min/1. 73m2 LAB CHEMISTRY METHOD 11/09/2024 12:22 AM [facility] Comment:Calculation based on the??Chronic Kidney Disease Epidemiology Collaboration (CKD-EPI) equation refit??without adjustment for race. BUN/Creatinine Ratio 18.3 LAB CHEMISTRY METHOD 11/09/2024 12:22 AM [facility] Calcium 9.2 8.5 - 10.5 mg/dL LAB CHEMISTRY METHOD 11/09/2024 12:22 AM [facility] Blood Venous blood specimen / Unknown Venipuncture / Unknown 11/08/2024 12:32 PM EST 11/08/2024 12:32 PM EST us Lea KARIMI LAB BLOOD ORDERABLES Final Resul t [facility] [address] [place] [address], * (ABNORMAL) Iron and TIBC (11/08/2024 12:04 PM EST) Iron 44(L) 50 - 160 mcg/dL LAB CHEMISTRY METHOD 11/08/2024 1:58 PM [facility] TIBC 420 250 - 450 mcg/dL LAB CHEMISTRY METHOD 11/08/2024 1:58 PM [facility] Iron Saturation 10(L) 20 - 50 % LAB CHEMISTRY METHOD 11/08/2024 1:58 PM [facility] Blood Venous blood specimen / Unknown Venipuncture / Unknown 11/08/2024 12:04 PM EST 11/08/2024 1:32 PM EST Moe Fernadnes MD LAB BLOOD ORDERABLES Final R esult Performing Organization Address [facility]/ZIP Co de Phone Number [facility] [address] [place] [address], [place] [phone] * Lactate dehydrogenase (11/08/2024 12:04 PM EST) LDH 226 120 - 246 unit/L LAB CHEMISTRY METHOD 11/08/2024 1:56 PM EST [facility] Blood Venous blood specimen / Unknown Venipuncture / Unknown 11/08/2024 12:04 PM EST 11/08/2024 1:32 PM EST Moe Fernandes MD LAB BLOOD ORDERABLES Final R esult Performing Organization Address [facility] Co de Phone Number [facility] [address] [place] [address], [place] [phone] * (ABNORMAL) Ferritin (11/08/2024 12:04 PM EST) Ferritin 23(L) 26 - 388 ng/mL LAB CHEMISTRY METHOD 11/08/2024 1:58 PM EST [facility] Blood Venous blood specimen / Unknown Venipuncture / Unknown 11/08/2024 12:04 PM EST 11/08/2024 1:32 PM EST Moe Fernandes MD LAB BLOOD ORDERABLES Final R esult Performing Organization Address [facility]/ZIP Co de Phone Number [facility] [address] [place] [address], [place] [phone] from Last 3 Months Insurance [facility] Care Teams Passenger Car Conductor Relationship Specialty Start Date End Date Zari Henry MD [address] [place] [address] PCP - General Internal Medicine 08/17/21
--- OUTSIDE RECORDS SUMMARY | 2025-01-31 21:59 | XMS_ITS | Clinical Summary ---
Author Organization [facility] Address [address] [address] Phone Care Team Providers Care Graphics Programmer Name Role Phone Zari Henry MD Primary Care Provider [phone] Allergies Active Allergy Reactions Criticality Noted Date [...] four times a day for 7 days 5 Active torsemide (DEMADEX) 20 MG tablet Take 40 mg by mouth 5 Active losartan (Cozaar) 25 MG tablet Take 1 tablet (25 mg total) by mouth 1 (one) time each day 30 tablet 11 5 12/11/19 26 Active Active Problems Problem Noted Date Diagnosed [...] Visit [facility] [address] [address] Jong Hall MD Stage 3 chronic kidney [...] Care Team (Late st Contact Info) Description 03/31/2025 4:30 PM EDT Office Visit [facility] [address] [phone] Jong Hall MD [address] [phone] Health Maintenance Due Date Last Done Comments [...] 07/22/2022, Additional history exists Insurance Care Teams Graphics Programmer Relationship Specialty Start Date End Date Zari Henry MD [address] [place] [id number] PCP - General Internal Medicine 12/09/24
--- OUTSIDE RECORDS SUMMARY | 2025-01-31 21:59 | XMS_ITS | Encounter Summary ---
Author Organization [facility] Address [address] [place] [address] Care Team Providers Care Automatic Operator Name Role Phone Zari Henry MD Primary Care Provider Reason for Visit * Reason Onset Date Comments Hospital Follow-up 01/23/2025 Encounter Details Date Type Department Care Team (Late st Contact Info) Description 01/23/2025 Telephone Adult Medicine [facility] [address] [place] [phone] Zari Henry MD [address] [place] [address] Hospital Follow-up Social History Tobacco Use Types [...] Progress Notes * Tonya Patel RN - 01/27/2025 10:28 AM EDT Called and spoke to ptBalbir Ramsey states he tested positive on 01/26/25. An appointment was made for him to be seen in the office with Dr. Henry on 02/06/25 at 1:30 pm and he is in agreement with this plan. * Nga Nunez - 01/27/2025 10:06 AM EDT Pt is calling today to cancel and looking to reschedule.pt tested positive for Covid this morning. Please advise * Carrillo Delgado RN - 01/23/2025 3:07 PM EDT Called and spoke with pt. Pt c/o cough sore throat able to swallow no drooling no fever fatigue hasn't tested for covid yet advised to. Rescheduled for Monday advised for any new or worsening sx or concern to go to er for evaluation. * Susan Russell - 01/23/2025 2:46 PM EDT Pt wants to reschedule apt for tomorrow 01/24/25 for hospital follow up. Pt is not feeling ok documented in this encounter Plan of Treatment Upcoming Encounters Date Type Department Care Team (Late st Contact Info) Description 02/06/2025 1:30 PM EDT Office Visit Adult Medicine [address] [phone] Zari Henry MD [address] [place] [address] 03/06/2025 4:40 PM EDT Office Visit [address] [phone] Lea Alex PA [address] [place] [address] 03/07/2025 2:00 PM EDT Office Visit Pulmonolgy [facility] 175 [facility] [address] [place] [address] Nisa Machado MD 175 [facility] [address] [place] [address] 04/23/2025 3:30 PM EDT Office Visit Adult Medicine [facility] [address] [place] [address] Zari Henry MD [address] [place] [address] 06/10/2025 12:00 PM EDT Office Visit [facility] [address] [place] [phone] Jong Hall MD 3550 [facility] [address] [place] [address] documented as of this encounter Visit Diagnoses Not on filedocumented in this encounter Care Teams Automatic Operator Relationship Specialty Start Date End Date Zari Henry MD [address] [place] [id number] PCP - General Internal Medicine 08/17/21 documented as of this encounter
--- OUTSIDE RECORDS SUMMARY | 2025-01-31 21:59 | XMS_ITS | Encounter Summary ---
Author Organization [facility] Address [address] [place] [address] Care Team Providers Care Casino Controller Name Role Phone Zari Henry MD Primary Care Provider [phone] Reason for Visit * Reason Onset Date Comments Request For Order(s) 01/13/2025 Encounter Details Date Type Department Care Team ([facility] Contact Info) Description 01/13/2025 Telephone Adult Medicine [address] [phone] Debbie Pavon [place] Request For Order(s) Social History Tobacco Use Types Packs/Day Years [...] as of this encounter Progress Notes * Debbie Pavon MA - 01/13/2025 3:03 PM EDT Pt is requesting Nebulizer machine with solution be sent to [facility] [phone] documented in this encounter Plan of Treatment Upcoming Encounters Date Type Department Care Team (Late st Contact Info) Description 02/06/2025 1:30 PM EDT Office Visit [address] [phone] Zair Henry MD [address] [place], [place] 03/06/2025 4:40 PM EDT Office Visit Endocrinology [address] [phone] Lea Alex PA [address] [place], [place] 03/07/2025 2:00 PM EDT Office Visit Pulmonolgy [facility] [address] [phone] Nisa Machado MD [address] [address] 04/23/2025 3:30 PM EDT Office Visit [address] [phone] Zari Henry MD [address] [place] [address] 06/10/2025 12:00 PM EDT Office Visit Nephrology - [facility] [address] [place] [phone] Jong Hall MD [address] [phone] documented as of this encounter Visit Diagnoses Not on filedocumented in this encounter Care Teams Casino Controller Relationship Specialty Start Date End Date Zari Henry MD [address] [place] [address] PCP - General Internal Medicine 08/17/21 documented as of this encounter
--- NOTE | 2025-01-31 22:00 | PC.NURSE ---
Patient states has a visiting nurse who assists with medication and during the past week patient states has been feeling drained. Patient with a multitude of complaints including his CHF has been acting up. Decrease appetite
[2025-01-31 22:04] VITALS: BP 120/62; PULSE 76; RESP 16; TEMP 36.9; O2SAT 99
[2025-01-31 22:08] LABS: B Type Natriuretic Peptide 71 pg/mL (<100)
[2025-01-31] MEDS: 0.9 % Sodium Chloride 1,000 ML 999 ML IV (23:03)
[2025-01-31 23:27] VITALS: BP 146/76; PULSE 74; RESP 20; TEMP 37.1; O2SAT 99
[2025-02-01 00:59] VITALS: BP 146/76; PULSE 74; RESP 20; TEMP 37.1; O2SAT 99
== END 2025-02-01 01:00 | disposition home or self-care (01) ==
PROVIDERS: Emergency Medicine; Physician Assistant Medical; Emergency Provider Internal Medicine; PCP Internal Medicine
DX: N17.9 Acute kidney failure, unspecified (principal); R53.1 Weakness; J44.9 Chronic obstructive pulmonary disease, unspecified; R10.2 Pelvic and perineal pain; M54.50 Low back pain, unspecified; R11.0 Nausea; F17.210 Nicotine dependence, cigarettes, uncomplicated; R94.31 Abnormal electrocardiogram [ECG] [EKG]; D72.829 Elevated white blood cell count, unspecified; R06.02 Shortness of breath; Z03.818 Encounter for observation for suspected exposure to other biological agents ruled out; Z79.899 Other long term (current) drug therapy
CPT/HCPCS: 0241U; 80053; 81001; 83735; 83880; 84443; 84484; 85025; 93005; 96360; 96361; 99284; 99285

== ENCOUNTER 2025-02-16 00:50 | Emergency (ER) | payer OTHER, SELFPAY ==
[2025-02-16] VITALS (7 sets, daily range): BP systolic 123–136; BP diastolic 63–87; PULSE 76–95; RESP 14–19; TEMP 36.8–37.1; O2SAT 93–100; BMI 25.0
--- NOTE | ~2025-02-16 | XR_ITS ---
CLINICAL HISTORY: sob, hx copd, chf 1 view chest x-ray Comparison: Chest x-ray from 01/14/2025. Findings: Overall improved aeration of both lungs relative to comparison. Mild pulmonary opacities including left lung base are nonspecific and may reflect residual or recurrent pneumonitis. Atypical edema is also considered given chronic lung disease and bilateral emphysematous changes.No lobar consolidation at this time. No pneumothorax or pleural effusion. Imaged mediastinum and imaged osseous structures are unchanged. IMPRESSION: Mild left basilar opacities are nonspecific and may reflect mild persistent or recurrent pneumonitis. This document has been electronically signed by: Derian Fairchild MD on 02/16/2025 02:25:33
--- NOTE | 2025-02-16 00:59 | ECG_ITS ---
Test Reason : SOB Blood Pressure : */* mmHG Vent. Rate : 88 BPM Atrial Rate : 88 BPM P-R Int : 146 ms QRS Dur : 78 ms QT Int : 360 ms P-R-T Axes : 38 39 42 degrees QTcB Int : 435 ms Normal sinus rhythm Normal ECG When compared with ECG of 31-Jan-2025 18:14, Borderline criteria for Inferior infarct are no longer Present Nonspecific T wave abnormality, improved in Inferior leads Referred By: hTeresa Emmanuel Electronically Signed By: INOCENCIO BERGMAN MD
--- NOTE | 2025-02-16 01:04 | ED.SOB ---
HPI - SOB/Dyspnea General Chief Complaint: Dyspnea Stated Complaint: Diff Breathing Hx of COPD & asthma on Duoneb Time Seen by Provider: 02/16/25 00:54 Source: patient and EMS Mode of arrival: EMS Limitations: no limitations History of Present Illness ED Provider: Dr. Theresa Emmanuel HPI Narrative: Patient comes to the emergency room complaining of shortness of breath and wheezing. According to the patient it has been going on for couple of days. Patient admits that he is still smoking. Patient states that the EMS crew give him a nebulization treatment and he is breathing more comfortable for now. Also, patient reports that he gained about 10 lb in about a month. Patient denies any chest pain. Denies any recent URIs. Related Data Home Medications ?Medication ?Instructions ?Recorded ?Confirmed escitalopram oxalate 10 mg tablet 10 mg PO DAILY 08/01/22 03/14/25 trazodone 50 mg tablet 100 mg PO BEDTIME 08/01/22 03/14/25 aspirin 81 mg tablet,delayed 81 mg PO DAILY 10/06/22 03/14/25 release atorvastatin 40 mg tablet 40 mg PO DAILY 10/06/22 03/14/25 metoprolol succinate 100 mg 100 mg PO DAILY 10/06/22 03/14/25 tablet,extended release 24 hr fluticasone 250 mcg-salmeterol 50 1 ea inhalation BID 12/22/23 03/14/25 mcg/dose blistr powdr for inhalation (Advair Diskus) albuterol sulfate 90 mcg/actuation 2 puff inhalation Q4H PRN 04/26/24 03/14/25 aerosol inhaler bronchospasm amlodipine 5 mg tablet 10 mg PO DAILY 06/02/24 03/14/25 insulin pump cartridge,automated 06/11/24 03/14/25 dose,BT with controller subcutaneous (Omnipod 5 G6 Intro Kit (Gen 5) subcutaneous cartridge with controller) omeprazole 40 mg capsule,delayed 40 mg PO DAILY@0630 07/15/24 03/14/25 release insulin lispro 100 unit/mL 100 unit DIRECTED 11/19/24 03/14/25 subcutaneous solution torsemide 40 mg tablet 40 mg PO BID 12/20/24 03/14/25 isosorbide mononitrate 30 mg 30 mg PO DAILY 01/14/25 03/14/25 tablet,extended release 24 hr losartan 25 mg tablet 25 mg PO DAILY 01/14/25 03/14/25 sucralfate 1 gram tablet 1 g PO QID 01/14/25 03/14/25 Previous Rx's ?Medication ?Instructions ?Recorded magnesium oxide 400 mg (241.3 mg 400 mg PO BIDPC #60 tabs 08/20/22 magnesium) tablet hydralazine 100 mg tablet 100 mg PO TID 30 days #90 tabs 05/09/23 fluticasone propionate 50 1 spray intranasal BID #16 grams 07/19/24 mcg/actuation nasal spray,suspension nicotine 21 mg/24 hr daily 21 mg transdermal DAILY #90 ea 11/26/24 transdermal patch ferrous sulfate 325 mg (65 mg 325 mg PO DAILY #30 tabs 01/15/25 iron) tablet (iron) torsemide 20 mg tablet 20 mg PO DAILY #90 tabs 01/15/25 amoxicillin 500 mg-potassium 1 tab PO BID #14 tabs 02/16/25 clavulanate 125 mg tablet (Augmentin) acetaminophen 500 mg tablet 1,000 mg (2 x 500 mg) PO Q6H PRN 03/20/25 (Tylenol Extra Strength) fever or pain #20 tabs doxycycline hyclate 100 mg tablet 100 mg PO Q12H 7 days #14 tabs 03/20/25 ibuprofen 400 mg tablet 400 mg PO TID PRN fever or pain 03/20/25 #30 tabs morphine 15 mg immediate release 15 mg PO Q8H PRN pain #10 tabs 03/20/25 tablet ondansetron 4 mg disintegrating 4 mg PO Q6-8H PRN nausea and 03/20/25 tablet vomiting #14 tabs Allergies Allergy/AdvReac Type Severity Reaction Status Date / Time dulaglutide [From [facility]] Allergy Unknown Verified 03/21/25 13:00 metformin [METFORMIN] AdvReac Mild DIARRHEA, Verified 03/21/25 13:00 nausea and vomiting Review of Systems Review of Systems: Constitutional : No Weight loss, No Fever, No Chills, No Night Sweats, No Fatigue, No Malaise ENT/Mouth : No Hearing loss, No Ear Pain, No Nasal Congestion, No Sinus Pain, No Hoarseness, No sore throat, No Rhinorrhea, No Swallowing Difficulty Eyes: No Eye Pain, No Swelling, No Redness, No Foreign Body, No Discharge, No Vision Changes Cardiovascular : No Chest Pain, complaining of Dyspnea on Exertion, complaining of chronic orthopnea, complaining of lower extremity edema, denies palpitations Respiratory : No Cough, No Sputum, complaining of Wheezing, No Smoke Exposure, complaining of Dyspnea Gastrointestinal : No Nausea, No Vomiting, No Diarrhea, No Constipation, No abdominal Pain, No Hematochezia, No Melena Genitourinary : no irregular bleeding, No Dysuria, No Urinary Frequency, No Hematuria, No Urinary Incontinence, No Urgency, No Flank Pain, No Urinary Flow Changes, No Hesitancy Musculoskeletal : No joint pain, No Myalgias, No Joint Swelling Skin : No Skin Lesions, No rash Neuro : No Weakness, No Numbness, No Paresthesias, No Loss of Consciousness, No Dizziness, No Headache Psych : No Anxiety/Panic, No Depression, No SI/HI/AH/VH, No Social Issues, Heme/Lymph: No Bruising, No Bleeding,No Lymphadenopathy Endocrine : No Polyuria, No Polydipsia, No Temperature Intolerance PMFSH Past Medical History Medical History Tobacco use CKD (chronic kidney disease) stage 1, GFR 90 ml/min or greater YARELIS (obstructive sleep apnea) Acute on chronic diastolic (congestive) heart failure KELVIN (acute kidney injury) Chronic heart failure with preserved ejection fraction (HFpEF) Depression Acute on chronic anemia Anxiety HLD (hyperlipidemia) Diabetes HTN (hypertension) Asthma PAD (peripheral artery disease) Surgical History History of esophagogastroduodenoscopy S/P angiogram of extremity Family History Family History Father Alzheimer disease CAD (coronary artery disease) Social History Social History Household Members: None Household Members Other:: 4 Housing: Apartment Do you presently have visiting nurse or other home services: Yes Unable to assess alcohol history related to: Unknown Alcohol intake: current Alcohol intake frequency: holidays/special occasions only Alcohol type: hard liquor Comment: pt is independent in room Patient Tobacco Use Status: Current everyday Tobacco user Tobacco use type: Cigarette Cigarette Packs Per Day: 1 Cigarettes Per Day: 20.0 Years Smoked: 35 e-Cigarette/Vaping Use: Never Used Second Hand Smoke Exposure: No Substance Use Type: Marijuana Advance Directives: Yes Advance Directives on File: Yes Advance Directives Date on File: 06/21/21 service: No Current occupational status: disabled Physical Exam Vital Signs: Vital Signs: Last Vital Signs Temp 98.2 F 02/16/25 06:35 Pulse 76 02/16/25 06:35 Resp 14 02/16/25 06:35 BP 134/72 02/16/25 06:35 Pulse Ox 96 02/16/25 06:35 O2 Del Method Room Air 02/16/25 06:35 BMI result Body Mass Index 25.0 Const: Other: Appearance: Alert. Oriented X3. No acute distress. Eyes: Pupils equal, round and reactive to light. ENT: Pharynx normal. Neck: Normal inspection. Neck supple. No lymph nodes noted. No crepitus CVS: Normal heart rate and rhythm. Pulses normal. Normal S1 and S2 Respiratory: Slightly tachypneic, oxygen saturation 95% on room air at this time after the DuoNeb Abdomen: Soft and nontender. No rigidity. No distention. Skin: Skin warm and dry. Normal skin color. Normal skin turgor. Extremities: +1 pitting edema bilaterally. No Lacerations. No Rash Neuro: Oriented X 3. No motor deficit. No sensory deficit. Moving all extremities. No slurred speech. CN 2 through 12 grossly intact Psych: calm, cooperative, normal affect Course Course Course Narrative: Patient known to have overlap of asthma, COPD and CHF Patient states that his breathing improved with a DuoNeb. Also, patient reports 10 lb weight gain within the last month Patient just finished his nebulization treatments. Patient receiving Solu-Medrol and magnesium. Patient has CHF, patient being given minimal amount of fluid due to patient's risk of fluid overload and reported weight gain At this time 01:13, no episodes of hypotension, all the labs pending, no fever. Sepsis is not suspected Given patient's past medical history, patient empirically being treated with IV antibiotics Medications Administered Discontinued Medications Generic Name Dose Route Start Last Admin Trade Name Freq PRN Reason Stop Dose Admin Amoxicillin/Clavulanate Potassium 500 mg 02/16/25 05:52 02/16/25 06:25 Amoxicillin/Potassium Clav 500 Mg Tablet PO 02/16/25 05:53 500 mg ONCE ONE Administration Bumetanide 0.5 mg 02/16/25 02:03 02/16/25 02:24 Bumetanide 1 Mg/4 Ml Vial IVPUSH 02/16/25 02:04 0.5 mg ONCE ONE Administration Protocol Bumetanide 2 mg 02/16/25 02:52 02/16/25 03:11 Bumetanide 1 Mg/4 Ml Vial IVPUSH 02/16/25 02:53 2 mg ONCE ONE Administration Protocol Ceftriaxone Sodium 1 gm 02/16/25 01:01 02/16/25 01:36 Ceftriaxone Sodium 1 Gm Vial IVPUSH 02/16/25 01:02 1 gm ONCE ONE Administration Magnesium Sulfate 2 gm in 50 mls @ 25 mls/hr 02/16/25 01:01 02/16/25 03:39 Magnesium Sulfate/H2o IV 02/16/25 03:00 Infused ONCE ONE Infusion Azithromycin 500 mg/ Sodium 250 mls @ 125 mls/hr 02/16/25 01:01 02/16/25 03:48 Chloride IV 02/16/25 03:00 Infused ONCE ONE Infusion Lidocaine HCl 15 ml 02/16/25 05:50 02/16/25 07:21 Lidocaine Hcl Viscous 2 % 15 Ml Solution MUCOUS MEM 02/16/25 05:51 15 ml ONCE ONE Administration Methylprednisolone Sodium Succinate 125 mg 02/16/25 01:01 02/16/25 01:36 Methylprednisolone Sod Succ 125 Mg/2 Ml Vial IVPUSH 02/16/25 01:02 125 mg ONCE ONE Administration Medical Decision Making Medical Decision Making [facility] Narrative: My interpretation of labs: Patient's hematology and chemistry at baseline, blood gases within normal limits, chemistry at baseline, improved creatinine, normal lactic acid, BNP 370. Last time that the patient was discharged he had a BNP of 782. Troponin 4.5. Patient's serology negative for influenza COVID and RSV Chest x-ray shows mild opacities, nonspecific, possible edema versus pneumonitis. As mentioned above, patient has empirically been treated with IV antibiotics. At this time, sepsis is not suspected. Fluids are not being given at this time. Patient's blood pressure in the 120s Patient got a dose of Bumex 0.5 mg IV. Patient ambulated around the emergency room, oxygen saturation 93%. On room air 97%. Patient states that he still feels very short of breath. I discussed the patient with Dr. John from the Medicine team. At this time, admission not recommended. We will give 2 mg IV of Bumex. And then we will re-evaluate. Patient urinated a fair amount, almost a L per nursing. I discussed the patient with Dr. John Patient remained stable, no oxygen desaturation. Patient complaining of sore throat. Patient states that he does not feel comfortable going home because he has sore throat. Patient was given viscous lidocaine Patient now feels comfortable being discharged home. Per Dr. John's recommendation, despite negative strep test, we will started on Augmentin and he will be discharged home. Patient agrees with plan Differential Diagnosis Differential Diagnoses: The differential diagnosis associated with the presentation includes (Pneumonia, COPD, CHF) Admission/Observation Consideration of admission/observation: Escalation of care including admission/observation considered Consult Healthcare Provider Management of the patient was discussed with: Hospitalist Lab Data [facility] Lab Attestation statement: I reviewed the patient's lab results. 02/16/25 01:31 02/16/25 01:31 Labs: Lab Results 02/16/25 02/16/25 02/16/25 Range/Units 01:31 01:38 02:54 WBC 12.5 H (4.8-10.8) X10*3/uL RBC 4.43 L D (4.60-5.80) X10*6/uL Hgb 10.1 L (14.0-18.0) g/dl Hct 31.5 L D (42.0-52.0) % MCV 71.1 L (80.0-98.0) fL MCH 22.8 L (27.0-33.0) pg MCHC 32.1 (31.0-36.0) g/dl RDW 23.3 H (11.0-16.0) % Plt Count 264 D (160-400) X10*3/uL MPV 10.0 (9.4-12.4) fL Immature Gran % (Auto) 0.9 H (0.0-0.4) % Neut % (Auto) 75.1 H (45-73) % Lymph % (Auto) 14.2 L (20-40) % [place] % (Auto) 8.2 (2-11) % Eos % (Auto) 1.3 (0-4) % Baso % (Auto) 0.3 (0-2) % Lymph # (Auto) 1.8 (1.2-4.9) X10*3/uL [place] # (Auto) 1.0 (0.1-1.2) X10*3/uL Eos # (Auto) 0.2 (0.0-0.4) X10*3/uL Baso # (Auto) 0.0 (0.0-0.2) X10*3/uL Abs Immat Gran (auto) 0.11 H (0.00-0.03) X10*3/uL Absolute Neuts (auto) 9.4 H (2.0-8.3) x10*3/uL Absolute Nucleated RBC 0.030 H (0.0-0.012) X10*3/uL Nucleated RBC % (auto) 0.2 (0.0-0.2) /100WBC VBG pH 7.50 H (7.32-7.43) VBG pCO2 39 mmHg VBG pO2 77 mmHg VBG HCO3 31 H (22-26) mmol/L VBG O2 Saturation 99.0 % VBG Base Excess 7.5 mmol/L Sodium 141 (135-145) mmol/L Potassium 3.3 (3.3-5.1) mmol/L Chloride 103 (96-108) mmol/L Carbon Dioxide 26 (22-29) mmol/L Anion Gap 15 (12-20) BUN 48 H (9-16) mg/dL Creatinine 1.53 H (0.5-1.4) mg/dL Estim Creat Clear Calc 50.2 Estimated GFR 48 Random Glucose 171 H (60-115) mg/dL Lactic Acid 1.6 (0.5-2.0) mmol/L Calcium 8.2 L D (8.4-10.2) mg/dL Magnesium 1.7 (1.6-2.6) mg/dL Total Bilirubin 0.2 (0.0-1.0) mg/dL Direct Bilirubin < 0.2 (0.0-0.5) mg/dL AST 35 (5-37) U/L ALT 23 (0-40) U/L Alkaline Phosphatase 106 (39-117) U/L Troponin I High Sens 4.5 (<3.5-35.0) ng/L B-Natriuretic Peptide 370 H (<100) pg/mL Total Protein 6.4 L (6.5-8.0) g/dL Albumin 3.6 (3.5-5.0) g/dL Influenza Type A (PCR) NEGATIVE (Negative) Influenza Type B (PCR) NEGATIVE (Negative) RSV RNA Qual (PCR) NEGATIVE (Negative) SARS-CoV-2 RNA (RT-PCR) NEGATIVE (Negative) S. pyogenes GrpA MAYELIN Negative (Negative) Independent Interpretation I performed an independent interpretation of an: Plain X-Ray Interpretation: Overall improved aeration of both lungs relative to comparison. Mild pulmonary opacities including left lung base are nonspecific and may reflect residual or recurrent pneumonitis. Atypical edema is also considered given chronic lung disease and bilateral emphysematous changes.No lobar consolidation at this time. No pneumothorax or pleural effusion. Imaged mediastinum and imaged osseous structures are unchanged. IMPRESSION: Mild left basilar opacities are nonspecific and may reflect mild persistent or recurrent pneumonitis. Radiology Impression Discussion of test interpretation with radiology: I have reviewed the radiologist's reading. Critical Care Time Critical Care Time Critical Care Time: Yes Total Critical Care Time: 60 Attestation: I have personally provided critical care time. Time includes review of lab data, radiology results, discussion with consultants, and monitoring for potential decompensation. Intervention performed as documented. Discharge Plan Discharge Clinical Impression: Chronic lung disease, CHF (congestive heart failure), Pharyngitis Patient Disposition: Home, Self-Care Instructions: Heart Failure (ED), Pharyngitis (ED) Additional Instructions: Please follow-up with your primary care physician tomorrow. If you have any worsening or new symptoms, please return to the emergency room or call 911 Prescriptions: New amoxicillin-pot clavulanate [Augmentin] 500-125 mg tablet 1 tab PO BID Qty: 14 0RF No Action hydralazine 100 mg tablet 100 mg PO TID 30 Days Qty: 90 5RF trazodone 50 mg tablet 100 mg PO BEDTIME escitalopram oxalate 10 mg tablet 10 mg PO DAILY atorvastatin 40 mg tablet 40 mg PO DAILY metoprolol succinate 100 mg tablet extended release 24 hr 100 mg PO DAILY magnesium oxide 400 mg (241.3 mg magnesium) Tablet 400 mg PO BIDPC Qty: 60 0RF fluticasone propion-salmeterol [Advair Diskus] 250-50 mcg/dose blister with device 1 ea inhalation BID amlodipine 5 mg tablet 10 mg PO DAILY omeprazole 40 mg capsule,delayed release(DR/EC) 40 mg PO DAILY@0630 fluticasone propionate 50 mcg/actuation [place],Suspension 1 spray intranasal BID Qty: 16 0RF sucralfate 1 gram tablet 1 g PO QID isosorbide mononitrate 30 mg tablet extended release 24 hr 30 mg PO DAILY losartan 25 mg tablet 25 mg PO DAILY torsemide 20 mg tablet 20 mg PO DAILY Qty: 90 0RF ferrous sulfate [iron] 325 mg (65 mg iron) tablet 325 mg PO DAILY Qty: 30 0RF acetaminophen [Tylenol Extra Strength] 500 mg tablet 1,000 mg PO Q6H PRN (Reason: fever or pain) Qty: 20 0RF ibuprofen 400 mg tablet 400 mg PO TID PRN (Reason: fever or pain) Qty: 30 0RF ondansetron 4 mg tablet,disintegrating 4 mg PO Q6-8H PRN (Reason: nausea and vomiting) Qty: 14 0RF doxycycline hyclate 100 mg tablet 100 mg PO Q12H 7 Days Qty: 14 0RF morphine 15 mg tablet 15 mg PO Q8H PRN (Reason: pain) Qty: 10 0RF Rx Instructions: Partial Fill upon patient request. albuterol sulfate 90 mcg/actuation HFA aerosol inhaler 2 puff inhalation Q4H PRN (Reason: bronchospasm) (DME) Omnipod 5 G6 Intro Kit (Gen 5) Cartridge SUBCUT insulin lispro 100 unit/mL solution 100 unit DIRECTED Rx Instructions: INJECT up to 100 UNITS DIRECTED SEE ADMIN INSTRUCTIONS. USE PER INSULIN PUMP nicotine 21 mg/24 hr Patch 24 Hour 21 mg transdermal DAILY Qty: 90 0RF aspirin 81 mg tablet,delayed release (DR/EC) 81 mg PO DAILY torsemide 40 mg tablet 40 mg PO BID Interventions: ED Discharge Assessment Last Done: 02/16/25 06:35 Discharge Date/Time: 02/16/25 07:15 Print Language: Palestinian
[2025-02-16] MEDS: Magnesium Sulfate/H2O 2 GM/50 ML PIGGYBACK IV (01:36)
[2025-02-16] MEDS: methylPREDNISolone Sod Succ 125 MG/2 ML VIAL IVPUSH (01:36)
[2025-02-16] MEDS: cefTRIAXone sodium 1 GM VIAL IVPUSH (01:36)
[2025-02-16 01:37] LABS: MANUAL DIFF FLAG NO
[2025-02-16 01:38] LABS: Venous Blood Gas Refer to POC result
[2025-02-16 01:39] LABS: Basophils Percent Auto 0.3 % (0-2); Eosinophils Absolute Auto 0.2 X10*3/uL (0.0-0.4); Eosinophils Percent Auto 1.3 % (0-4); Hematocrit 31.5 % (42.0-52.0); Hemoglobin 10.1 g/dl (14.0-18.0); Imm Gran Abs Auto 0.11 X10*3/uL (0.00-0.03); Imm Gran Pct Auto 0.9 % (0.0-0.4); Lymphocytes Absolute Auto 1.8 X10*3/uL (1.2-4.9); Lymphocytes Percent Auto 14.2 % (20-40); Mean Corpuscular HGB Conc 32.1 g/dl (31.0-36.0); Mean Corpuscular Hemoglobin 22.8 pg (27.0-33.0); Mean Corpuscular Volume 71.1 fL (80.0-98.0); Monocytes Percent Auto 8.2 % (2-11); NRBC Pct Auto 0.2 /100WBC (0.0-0.2); Neutrophils Absolute Auto 9.4 x10*3/uL (2.0-8.3); Neutrophils Percent Auto 75.1 % (45-73); Platelet Count 264 X10*3/uL (160-400); Red Blood Count 4.43 X10*6/uL (4.60-5.80); Red Cell Distribution Width 23.3 % (11.0-16.0); White Blood Count 12.5 X10*3/uL (4.8-10.8)
[2025-02-16 01:42] LABS: VBG Base Excess 7.5 mmol/L; VBG HCO3 31 mmol/L (22-26); VBG pCO2 39 mmHg; VBG pO2 77 mmHg
[2025-02-16] MEDS: Azithromycin 500 MG in 0.9 % Sodium Chloride 250 ML 125 MG IV (01:45)
[2025-02-16 01:52] LABS: Lactic Acid 1.6 mmol/L (0.5-2.0)
[2025-02-16 01:58] LABS: B Type Natriuretic Peptide 370 pg/mL (<100); Troponin-I High Sensitivity 4.5 ng/L (<3.5-35.0)
[2025-02-16 02:00] LABS: Alanine Aminotransferase 23 U/L (0-40); Albumin Level 3.6 g/dL (3.5-5.0); Alkaline Phosphatase 106 U/L (39-117); Anion Gap 15 (12-20); Aspartate Amino Transferase 35 U/L (5-37); Bilirubin Direct < 0.2 mg/dL (0.0-0.5); Bilirubin Total 0.2 mg/dL (0.0-1.0); Blood Urea Nitrogen 48 mg/dL (9-16); Calcium 8.2 mg/dL (8.4-10.2); Carbon Dioxide 26 mmol/L (22-29); Chloride 103 mmol/L (96-108); Creatinine Clr Calc Pharmacy 50.2; Estimated Glomerular Filt Rate 48; Glucose Random 171 mg/dL (60-115); Magnesium 1.7 mg/dL (1.6-2.6); Potassium 3.3 mmol/L (3.3-5.1); Sodium 141 mmol/L (135-145); Total Protein 6.4 g/dL (6.5-8.0)
[2025-02-16 02:24] LABS: Influenza A PCR NEGATIVE (Negative); Influenza B PCR NEGATIVE (Negative); Resp Syncy Virus RNA Qual PCR NEGATIVE (Negative); SARS COV2 PCR INHOUSE NEGATIVE (Negative)
[2025-02-16] MEDS: Bumetanide 1 MG/4 ML VIAL 0.5 MG IVPUSH (02:24)
[2025-02-16] MEDS: Bumetanide 1 MG/4 ML VIAL 2 MG IVPUSH (03:11)
[2025-02-16 03:12] LABS: IDNOW Serial# 58CA691E; Strep A Nucleic Acid Negative (Negative)
[2025-02-16] MEDS: Amoxicillin/Potassium Clav 500 MG TABLET PO (06:25)
[2025-02-16] MEDS: Lidocaine HCl Viscous 2 % 15 ML SOLUTION MUCOUS MEM (07:21)
== END 2025-02-16 07:15 | disposition home or self-care (01) ==
PROVIDERS: Emergency Provider Emergency Medicine
DX: J44.9 Chronic obstructive pulmonary disease, unspecified (principal); J02.9 Acute pharyngitis, unspecified; R06.02 Shortness of breath; E11.22 Type 2 diabetes mellitus with diabetic chronic kidney disease; I13.0 Hypertensive heart and chronic kidney disease with heart failure and stage 1 through stage 4 chronic kidney disease, or unspecified chronic kidney disease; N18.1 Chronic kidney disease, stage 1; I50.9 Heart failure, unspecified; E78.5 Hyperlipidemia, unspecified; J45.909 Unspecified asthma, uncomplicated; F17.210 Nicotine dependence, cigarettes, uncomplicated; Z79.82 Long term (current) use of aspirin; Z79.899 Other long term (current) drug therapy; Z79.4 Long term (current) use of insulin; Z03.818 Encounter for observation for suspected exposure to other biological agents ruled out
CPT/HCPCS: 0241U; 36415; 71045; 80048; 80076; 82803; 83605; 83735; 83880; 84484; 85025; 87040; 87651; 93005; 96365; 96366; 96375; 96376; 99284; 99285; J0456; J0696; J1939; J2919; J3475

== ENCOUNTER → 2025-02-16 00:59 | Outpatient (BNV) | payer OTHER, SELFPAY | PROVIDERS: Emergency Provider Emergency Medicine; Visit Provider Internal Medicine Cardiovascular Disease | DX: R06.02 Shortness of breath (principal) | CPT/HCPCS: 93010 ==

== ENCOUNTER → 2025-02-16 01:00 | Outpatient (BNV) | payer OTHER, SELFPAY | PROVIDERS: Emergency Provider Emergency Medicine; Visit Provider Radiology Neuroradiology | DX: J44.9 Chronic obstructive pulmonary disease, unspecified (principal); I50.9 Heart failure, unspecified | CPT/HCPCS: 71045 ==

== ENCOUNTER 2025-03-14 13:37 | Outpatient (AMB) | payer OTHER, SELFPAY ==
--- OUTSIDE RECORDS SUMMARY | 2025-03-14 13:40 | XMS_ITS | Clinical Summary ---
Author Organization [facility] Address [address] [place] [address] Care Team Providers Care Room Service Server Name Role Phone Zari Henry MD Primary Care Provider [phone] Allergies Active Allergy Reactions Criticality Noted Date [...] age to complete this topic Care Teams Room Service Server Relationship Specialty Start Date End Date Zari Henry MD PCP - General Internal Medicine 01/21/22
--- OUTSIDE RECORDS SUMMARY | 2025-03-14 13:40 | XMS_ITS | Encounter Summary ---
Author Organization [facility] Address [address] [place] [address] Care Team Providers Care Yarn Bleaching Machine Operator Name Role Phone Zari Henry MD Primary Care Provider Encounter Details Date Type Department Care Team (Late Contact Info) Description 01/09/2025 Billing Patient Not Present Adult Medicine [facility] [address] [place] [address] Zari Henry MD [address] [place] [address] Social History Tobacco Use Types Packs/Day Years Used Date Smoking Tobacco: Light Smoker Cigarettes 0.5 34.4 Started: 10/30/1990 Smokeless Tobacco: Never Alcohol Use [...] Department Care Team (Late Contact Info) Description 03/20/2025 10:45 AM EDT Office Visit [address] [place] [address] Nisa Machado MD [facility] [address] [place] [address] 04/23/2025 3:30 PM EDT Office Visit Adult Medicine [facility] [address] [place] [address] Zari Henry MD [address] [place] [address] 06/10/2025 12:00 PM EDT Office Visit Nephrology [facility] [address] [place] [phone] Jong Hall MD 3550 [facility] [address] [place] [phone] documented as of this encounter Visit Diagnoses Not on filedocumented in this encounter Care Teams Yarn Bleaching Machine Operator Relationship Specialty Start Date End Date Zari Henry MD [address] [place] [address] PCP - General Internal Medicine 08/17/21 documented as of this encounter
--- OUTSIDE RECORDS SUMMARY | 2025-03-14 13:40 | XMS_ITS | Clinical Summary ---
Author Organization [facility] Address [address] [facility] [place] [address] Phone Care Team Providers Care First Aid Teacher Name Role Phone Zari Henry MD Primary Care Provider Allergies Active Allergy Reactions Criticality Noted Date Comments Dulaglutide Nausea And Vomiting 06/22/2021 Metformin 07/04/2017 Gi distress Medications aspirin 81 mg EC tablet Take 1 tablet (81 mg total) by mouth 1 (one) time each day. 12/23/19 21 Active lisinopril (PRINIVIL,ZEST RIL) 40 mg tablet Take 1 tablet (40 mg total) by mouth 1 (one) time each day. 11/02/19 22 Active nicotine (Nicotrol) 10 mg inhaler INHALE 1 PUFF INTO THE LUNGS NEEDED FOR SMOKING CESSATION EVERY 2 HOURS. 07/16/20 21 Active tadalafiL (CIALIS) 20 mg tablet Take 1 tablet (20 mg total) by mouth. 06/08/20 20 Active insulin pump cart,cont inf,BT (Omnipod Dash [...] DAYS. 18 each 2 09/25/20 24 Active oxyCODONE-acet aminophen (PERCOCET) 5-325 mg per tabletIndicati ons:Muscle cramp Take 1 tablet by mouth every 6 (six) hours if needed for severe pain for up to 15 doses. Max Daily Amount: 4 tablets 15 tablet 12/01/19 25 Active Additional Information Patient not taking.Reported on 03/10/2025 Advair Diskus 250-50 mcg/dose diskus inhaler Inhale 1 puff by mouth 2 (two) times a day. Active hydrALAZINE (APRESOLINE) 100 mg tablet Take 1 tablet (100 mg total) by mouth 3 (three) times a day. Active diclofenac (VOLTAREN) 1 % topical gel Apply 2 g topically 2 (two) times a day. 200 g 1 01/03/20 25 Active atorvastatin (LIPITOR) 40 mg tablet Take 1 tablet (40 mg total) by mouth 1 (one) time each day. 90 tablet 1 01/14/20 25 Active escitalopram (LEXAPRO) 10 mg tablet Take 1 tablet (10 mg total) by mouth 1 (one) time each day. 90 tablet 1 01/14/20 25 Active omeprazole (PriLOSEC) [address] capsule Take 1 capsule (40 mg total) by mouth 1 (one) time each day. 90 capsule 1 01/14/20 25 Active sucralfate (CARAFATE) 1 gram tablet Take 1 tablet (1 g total) by mouth 4 (four) times a day. 360 tablet 1 01/14/20 25 Active torsemide (DEMADEX) 20 mg tablet 60 mg am 40 mg pm 02/07/20 25 Active gabapentin (NEURONTIN) 300 mg capsule Take 1 capsule (300 mg total) by mouth 3 (three) times a day. 270 each 1 02/08/20 25 Active magnesium oxide (MAG-OX) 400 mg magnesium tablet Take 1 tablet (400 mg total) by mouth 1 (one) time each day. 90 tablet 1 02/08/20 25 025 Active traZODone (DESYREL) 100 mg tablet Take 1 tablet (100 mg total) by mouth at bedtime. 90 each 1 02/08/20 25 Active amLODIPine (NORVASC) 5 mg tablet Take 2 tablets (10 mg total) by mouth 1 (one) time each day. 180 tablet 02/20/20 25 Active metoprolol succinate (TOPROL-XL) 100 mg 24 hr tablet TAKE 1 TABLET BY MOUTH EVERY DAY 90 tablet 1 02/24/20 25 Active insulin lispro 100 unit/mL injectionIndic ations:Type 2 diabetes mellitus with diabetic nephropathy ([facility] V24, [facility] V28) INJECT 100 UNITS DIRECTED SEE ADMIN INSTRUCTIONS. USE PER INSULIN PUMP 30 mL 2 03/05/20 25 Active metoprolol succinate (TOPROL-XL) 100 mg 24 hr tablet Take 1 tablet (100 mg total) by mouth 1 (one) time each day. 11/02/19 22 025 Discontinued amLODIPine (NORVASC) 5 mg tablet Take 2 tablets (10 mg total) by mouth 1 (one) time each day. 30 tablet 10/29/20 24 025 Discontinued(R eorder) insulin lispro 100 unit/mL injectionIndic ations:Type 2 diabetes mellitus with diabetic nephropathy ([facility] V24, [facility] V28) INJECT 100 UNITS DIRECTED SEE ADMIN INSTRUCTIONS. USE PER INSULIN PUMP 30 mL 2 01/03/20 25 025 Discontinued(R eorder) Active Problems Problem Noted Date Diagnosed Date DM (diabetes mellitus), type 2 with peripheral vascular complications ([facility] V24, [facility] V28) 12/05/2024 MAGDA (iron deficiency anemia) 04/06/2023 Requires supplemental oxygen 04/06/2023 CHF (congestive heart failure) ([facility] V24, [facility] V28) 01/06/2023 Obstructive sleep apnea syndrome 05/09/2022 Adrenal mass ([facility] V24) 03/24/2022 Claudication of both lower extremities ([facility] V24) 12/27/2021 Sleep related hypoxia 08/17/2021 Overview (07/12/2024): On oxygen at nighttime Asthma-COPD overlap syndrome ([facility] V24, [facility] V28) 08/17/2021 Overview (12/11/2024): Microscopic hematuria 12/25/2020 Overview (11/29/2024): Normal renal ultrasound, referred to urology for further work-up Condyloma acuminata 11/18/2020 Overview (11/29/2024): Condyloma acuminata 11/19 penis PAD (peripheral artery disease) ([facility] V24) Overview (11/29/2024): With LLE angioplasty 01/2020 Polycythemia 06/04/2018 Anxiety 08/01/2017 Microalbuminuria 04/14/2017 Depression 01/31/2017 HTN (hypertension), benign 01/31/2017 Hyperlipidemia 01/31/2017 Resolved Problems Problem Noted Date Diagnosed Date Resolved Date Type 2 diabetes mellitus ( S/HCC V24, [facility] V28) 01/31/2017 12/05/2024 Encounters Date Type Department Care Team Description 03/10/2025 4:40 PM EDT Office Visit [address] [phone] Lea Alex PA DM (diabetes mellitus), type 2 with peripheral vascular complications ([facility] V24, [facility] V28) (Primary Dx); HTN (hypertension), benign 03/05/2025 Nurse Triage Adult Medicine [address] [phone] Zari Henry MD [place] 02/18/2025 Telephone Endocrinology [address] [phone] Lea Alex PA Med Refill 02/17/2025 Billing Patient Not Present Adult Medicine [address] [phone] Zari Henry MD 02/14/2025 Billing Patient Not Present Adult Medicine [address] [phone] Zari Henry MD 02/14/2025 Telephone Adult Medicine [address] [phone] Zari Henyr MD faxed order ([facility] health cert 02/13/25/Cert period 12/03/24 through 01/31/25) 02/06/2025 1:30 PM EDT Office Visit Adult Medicine [address] [phone] Zari Henry MD Acute on chronic right-sided congestive heart failure (CMS/HCC V24, CMS/HCC V28) (Primary Dx); HTN (hypertension), benign; Iron deficiency anemia, unspecified iron deficiency anemia type; Other hyperlipidemia; DM (diabetes mellitus), type 2 with peripheral vascular complications (CMS/HCC V24, CMS/HCC V28) 02/06/2025 Telephone Adult Medicine [address] [phone] Zari Henry MD vna 02/06/2025 Billing Patient Not Present Adult Medicine [address] [phone] Zari Henry MD 01/31/2025 Telephone Adult Medicine [address] [phone] Zari Henry MD vna 01/30/2025 Billing Patient Not Present Adult Medicine [address] [phone] Zari Henry MD 01/23/2025 Telephone Adult Medicine [address] [phone] Zari Henry MD Hospital Follow-up 01/23/2025 Telephone Adult Medicine [address] [phone] Tonya Patel, CARLITOS 01/17/2025 Telephone Adult [address] [phone] Zari Henry MD Hospital Follow-up 01/17/[address] [phone] Zari Henry MD vna 01/13/[address] [phone] Debbie Pavon MA Request For Order(s) 01/10/[address] [phone] Tanesha Estrada, RN Faxed Order ([facility] Med Orders dated 12/31/24) 01/09/2025 Billing Patient Not Present [address] [phone] Zari Henry MD 01/08/[address] [phone] Tanesha Estrada, RN Faxed Order ([facility] Resumption of Care orders 12/17/24 and 12/25/24) 01/02/[address] [phone] Zari Henry MD VNA Call 12/24/2024 10:30 AM EST Office Visit [address] [phone] Zari Henry MD Acute on chronic respiratory failure with hypoxia (CMS/HCC V24, CMS/HCC V28) (Primary Dx); DM (diabetes mellitus), type 2 with peripheral vascular complications (CMS/HCC V24, CMS/HCC V28); HTN (hypertension), benign; Acute on chronic right-sided congestive heart failure (CMS/HCC V24, CMS/HCC V28); PAD (peripheral artery disease) (CMS/HCC V24); KELVIN (acute kidney injury) ([facility] V24) 12/24/2024 Telephone Adult Medicine [facility] - [address] [phone] Ashleigh Verdugo MA Forms/questionnaires ([employer]) 12/17/2024 Telephone Endocrinology - [address] [phone] Lea Alex PA MEDICATION 12/17/2024 Telephone Adult Medicine [place] - [address] [phone] John Pulido LPN [facility] Follow-up from Last 3 Months Immunizations Name Administration [...] (diabetes mellitus), type 2 with renal complications ([facility] V24, [facility] V28) 01/31/2017 Microalbuminuria 04/14/2017 Polycythemia 06/04/2018 Condyloma acuminata 11/18/2020 Condyloma ac uminata 11/19 penis YARELIS (obstructive sleep apnea) 05/09/2022 CHF (congestive heart failur e) ([facility] V24, [facility] V28) 01/06/2023 DM (diabetes mellitus), type 2 with peripheral vascular complications ([facility] V24, [facility] V28) 12/05/2024 Family History Medical History Relation Name Comments Colon cancer Neg Hx Social History Tobacco Use Types Packs/Day Years Used Date Smoking Tobacco: Light Smoker Cigarettes 0.5 34.4 Started: 10/30/1990 Smokeless Tobacco: Never Tobacco Cessation:Ready [...] Sign Reading Time Taken Comments Blood Pressure 138/58 02/06/2025 1:27 PM EDT Pulse 70 02/06/2025 1:27 PM EDT Temperature 36.2 ??C (97.2 ??F) 03/10/2025 4:43 PM ED T Respiratory Rate 14 02/06/2025 1:27 PM EDT Oxygen Saturation 96% 02/06/2025 1:27 PM EDT Inhaled Oxygen Concentration - - Weight 62.7 kg (138 lb 3.2 oz) 03/10/2025 4:43 P M EDT Height 165.1 cm (5' 5 ) 03/10/2025 4:43 PM EDT Body Mass Index 23 03/10/2025 4:43 PM EDT Plan of Treatment Upcoming Encounters Date Type Department Care Team (Late st Contact Info) Description 03/20/2025 10:45 AM EDT Office Visit Pulmonolgy - [place] [address] [facility] [address] [place] [phone] Nisa Machado MD [address] [facility] [address] [place] [address] 04/23/2025 3:30 PM EDT Office Visit Adult Medicine [facility] [address] [place] [address] Zari Henry MD [address] [place] [address] 06/10/2025 12:00 PM EDT Office Visit Nephrology - [address] [place] [phone] Jong Hall MD [address] [phone] Health Maintenance Due Date Last Done Comments [...] 07/12/2023 Diabetes: Blood Sugar Control Test (HGBA1C) 08/08/2025 02/06/2025, 11/08/2024, 05/03/2024 Diabetes: Annual GFR (Glomerular Filtration Rate) 02/06/2026 02/06/2025, 12/01/2024, 11/08/2024, Additional history exists Hypertension/CHF/CAD Annual BMP Blood Test 02/06/2026 02/06/2025, 12/01/2024, 11/08/2024, Additional history exists DTaP,Tdap,and Td Vaccines [...] age to complete this topic Meningococcal B Vaccine Aged Out No l onger eligible based on patient's age to complete this topic RSV Immunization Patients Under 20 months Aged Out No longer eligible based on patient's age to complete this topic Varicella Vaccines Aged Out No longer eligible based on patient's age to complete this topic Procedures Procedure Name Priority Date/Time Associated Diagnosis Comments CBC WITH AUTO DIFFERENTIAL Routine 02/06/2025 2:04 PM EDT Iron deficiency anemia, unspecified iron deficiency anemia type CBC AND DIFFERENTIAL Routine 02/06/2025 2:04 PM EDT Iron deficiency anemia, unspecified iron deficiency anemia type BASIC METABOLIC PANEL Routine 02/06/2025 2:04 PM EDT Acute on chronic right-sided congestive heart failure (CMS/HCC V24, CMS/HCC V28) HEMOGLOBIN A1C Routine 02/06/2025 2:04 PM EDT DM (diabetes mellitus), type 2 with peripheral vascular complications (CMS/HCC V24, CMS/HCC V28) HOME HEALTH ORDER 01/18/2025 HOME HEALTH ORDER 12/17/2024 from Last 3 Months Results * (ABNORMAL) CBC auto differential (02/06/2025 2:04 PM EDT) [facility] WBC 14.4(H) 4.8 - 10.8 K/mcL LAB HEMETOLOGY METHOD 02/06/2025 5:06 PM [facility] RBC 5.60(H) 4.50 - 5.50 M/mcL LAB HEMETOLOGY METHOD 02/06/2025 5:06 PM [facility] Hemoglobin 12.3(L) 13.5 - 17.5 g/dL LAB HEMETOLOGY METHOD 02/06/2025 5:06 PM [facility] Hematocrit 41.3(L) 42.0 - 54.0 % LAB HEMETOLOGY METHOD 02/06/2025 5:06 PM [facility] MCV 73.9(L) 79.0 - 98.0 FL LAB HEMETOLOGY METHOD 02/06/2025 5:06 PM [facility] MCH 22.0(L) 27.0 - 32.0 pcg LAB HEMETOLOGY METHOD 02/06/2025 5:06 PM [facility] MCHC 29.8(L) 32.0 - 37.0 g/dL LAB HEMETOLOGY METHOD 02/06/2025 5:06 PM [facility] RDW 21.9(H) 11.0 - 15.0 % LAB HEMETOLOGY METHOD 02/06/2025 5:06 PM [facility] Platelets 407(H) 130 - 400 K/mcL LAB HEMETOLOGY METHOD 02/06/2025 5:06 PM [facility] MPV 11.1(H) 7.0 - 11.0 FL LAB HEMETOLOGY METHOD 02/06/2025 5:06 PM [facility] NRBC 0.0 <1.0 % LAB HEMETOLOGY METHOD 02/06/2025 5:06 PM [facility] NRBC Absolute 0.00 <0.10 K/mcL LAB HEMETOLOGY METHOD 02/06/2025 5:06 PM [facility] Neutrophils Relative 81.5 % LAB HEMETOLOGY METHOD 02/06/2025 5:06 PM [facility] Lymphocytes Relative 8.0 % LAB HEMETOLOGY METHOD 02/06/2025 5:06 PM [facility] Monocytes Relative 9.2 % LAB HEMETOLOGY METHOD 02/06/2025 5:06 PM [facility] Eosinophils Relative 0.3 % LAB HEMETOLOGY METHOD 02/06/2025 5:06 PM [facility] Basophils Relative 0.6 % LAB HEMETOLOGY METHOD 02/06/2025 5:06 PM [facility] Immature Granulocytes Relative 0.4 % LAB HEMETOLOGY METHOD 02/06/2025 5:06 PM [facility] Neutrophils Absolute 11.77(H) 1.50 - 7.00 K/mcL LAB HEMETOLOGY METHOD 02/06/2025 5:06 PM [facility] Lymphocytes Absolute 1.16 1.00 - 5.00 K/mcL LAB HEMETOLOGY METHOD 02/06/2025 5:06 PM [facility] Monocytes Absolute 1.33(H) 0.20 - 1.00 K/mcL LAB HEMETOLOGY METHOD 02/06/2025 5:06 PM [facility] Eosinophils Absolute 0.04 0.00 - 0.50 K/mcL LAB HEMETOLOGY METHOD 02/06/2025 5:06 PM [facility] Basophils Absolute 0.08 0.00 - 0.20 K/mcL LAB HEMETOLOGY METHOD 02/06/2025 5:06 PM [facility] Immature Granulocytes Absolute 0.06(H) 0.00 - 0.03 K/mcL LAB HEMETOLOGY METHOD 02/06/2025 5:06 PM EDT [facility] Blood Venous blood specimen / Unknown Venipuncture / Unknown 02/06/2025 2:04 PM EDT 02/06/2025 2:04 PM EDT Zari Henry MD LAB BLOOD ORDERABLES Final Resul t Performing Organization Address [facility] de Phone Number [facility] [address] [place] [address], [place] [phone] * (ABNORMAL) Hemoglobin A1c (02/06/2025 2:04 PM EDT) Hemoglobin A1C 8.1(H) <6.5 % LAB CHEMISTRY METHOD 02/07/2025 11:06 AM EDT [facility] Mean Bld Glu Estim. 186 mg/dL LAB CHEMISTRY METHOD 02/07/2025 11:06 AM EDT [facility] Blood Venous blood specimen / Unknown Venipuncture / Unknown 02/06/2025 2:04 PM EDT 02/06/2025 2:04 PM EDT Zari Henry MD LAB BLOOD ORDERABLES Final Resul t Performing Organization Address [facility] de Phone Number [facility] [address] [place] [address], * (ABNORMAL) Basic metabolic panel (02/06/2025 2:04 PM EDT) Sodium 136 133 - 145 mmol/L LAB CHEMISTRY METHOD 02/06/2025 5:07 PM EDT [facility] Potassium 4.2 3.5 - 5.5 mmol/L LAB CHEMISTRY METHOD 02/06/2025 5:07 PM EDT [facility] Chloride 99 96 - 110 mmol/L LAB CHEMISTRY METHOD 02/06/2025 5:07 PM EDT [facility] CO2 28 21 - 32 mmol/L LAB CHEMISTRY METHOD 02/06/2025 5:07 PM [facility] Anion Gap 9 3 - 11 LAB CHEMISTRY METHOD 02/06/2025 5:07 PM [facility] Glucose 317(H) 70 - 100 mg/dL LAB CHEMISTRY METHOD 02/06/2025 5:07 PM [facility] BUN 25 5 - 25 mg/dL LAB CHEMISTRY METHOD 02/06/2025 5:07 PM [facility] Creatinine 1.91(H) 0.70 - 1.30 mg/dL LAB CHEMISTRY METHOD 02/06/2025 5:07 PM [facility] eGFR 42(L) >=60 mL/min/1. 73m2 LAB CHEMISTRY METHOD 02/06/2025 5:07 PM [facility] Comment:Calculation based on the??Chronic Kidney Disease Epidemiology Collaboration (CKD-EPI) equation refit??without adjustment for race. BUN/Creatinine Ratio 13.1 LAB CHEMISTRY METHOD 02/06/2025 5:07 PM [facility] Calcium 9.5 8.5 - 10.5 mg/dL LAB CHEMISTRY METHOD 02/06/2025 5:07 PM [facility] Blood Venous blood specimen / Unknown Venipuncture / Unknown 02/06/2025 2:04 PM EDT 02/06/2025 2:04 PM EDT us Zari Henry MD LAB BLOOD ORDERABLES Final Resul t [facility] [address] [place] [address], [place] [phone] * Home Health Order (01/18/2025) Only the most recent of2 resultswithin the time period is included. us Provider [facility] Taylor marquez Result from Last 3 Months Insurance [facility] Care Teams First Aid Teacher Relationship Specialty Start Date End Date Zari Henry MD [address] [place] [address] PCP - General Internal Medicine 08/17/21
--- OUTSIDE RECORDS SUMMARY | 2025-03-14 13:40 | XMS_ITS | Encounter Summary ---
Author Organization [facility] Address [address] [place] [address] Care Team Providers Care Dietary Internship Name Role Phone Zari Henry MD Primary Care Provider [phone] Encounter Details Date Type Department Care Team (Late Contact Info) Description 01/30/2025 Billing Patient Not Present Adult Medicine [facility] [address] [place] [address] Zari Henry MD [address] [place] [address] Social History Tobacco Use Types Packs/Day Years [...] Description 03/20/2025 10:45 AM EDT Office Visit [address] [place] [address] Nisa Machado MD [facility] [address] [place] [address] 04/23/2025 3:30 PM EDT Office Visit Adult Medicine [facility] [address] [place] [address] Zari Henry MD [address] [place] [address] 06/10/2025 12:00 PM EDT Office Visit Nephrology - [facility] [address] [place] [phone] Jong Hall MD 3550 [facility] [address] [place] [phone] documented as of this encounter Visit Diagnoses Not on filedocumented in this encounter Care Teams Dietary Internship Relationship Specialty Start Date End Date Zari Henry MD [address] [place] [phone] PCP - General Internal Medicine 08/17/21 documented as of this encounter
--- OUTSIDE RECORDS SUMMARY | 2025-03-14 13:40 | XMS_ITS | Clinical Summary ---
Author Organization [facility] Address [address] [address] Phone Care Team Providers Care Physical Education Specialist Name Role Phone Zari Henry MD Primary Care Provider [phone] Allergies Active Allergy Reactions Criticality Noted Date [...] 01/31/2017 Type 2 diabetes mellitus 01/31/2017 Immunizations Immunization Administration Dates Next Due Influenza, MDCK, PF, [...] Office Visit [facility] [address] [phone] Jong Hall MD [facility] [address] Health Maintenance Due Date Last Done Comments Hepatitis B Vaccine (1 of 3 - 19+ 3-dose series) 1993 Pneumococcal Vaccine: 50+ Ye ars (2 of 2 - PPSV23) 12/03/2019 10/08/2019 Diabetes: Ophthalmology Exam 12/30/2022 Diabetes: Pedal Pulse Checked 12/30/2022 Diabetes: Sensory Foot Exam 12/30/2022 Diabetes: Visual Foot Exam 12/30/2022 Colorectal Cancer Screening: Annual FOBT 2023 Colorectal Cancer Screening: Colonoscopy 2023 Colorectal Cancer Screening: Sigmoidoscopy 2023 Diabetes: Hemoglobin A1C 02/06/2025 11/08/2024 Pneumococcal Vaccine: Peds ( 0 to 5 Years) and At-Risk Patients (6 to 49 Years) Discontinued 10/08/2019 Influenza Vaccine Completed 07/16/2024, , 07/22/2022, Additional history exists [place] [address] Care Teams Physical Education Specialist Relationship Specialty Start Date End Date Zari Henry MD [address] [place] [id number] PCP - General Internal Medicine 12/09/24
--- OUTSIDE RECORDS SUMMARY | 2025-03-14 13:40 | XMS_ITS | Encounter Summary ---
Author Organization [facility] Address [address] [place] [address] Care Team Providers Care Rn Training Name Role Phone Zari Henry MD Primary Care Provider Encounter Details Date Type Department Care Team (Late Contact Info) Description 02/14/2025 Billing Patient Not Present Adult Medicine [facility] [address] [place] [address] Zari Henry MD [address] [place] [address] Social History Tobacco Use Types Packs/Day Years [...] Description 03/20/2025 10:45 AM EDT Office Visit [address] [place] [address] Nisa Machado MD [facility] [address] [place] [address] 04/23/2025 3:30 PM EDT Office Visit Adult Medicine [facility] [address] [place] [address] Zari Henry MD [address] [place] [address] 06/10/2025 12:00 PM EDT Office Visit Nephrology - [facility] [address] [place] [phone] Jong Hall MD 3550 [facility] [address] [place] [phone] documented as of this encounter Visit Diagnoses Not on filedocumented in this encounter Care Teams Rn Training Relationship Specialty Start Date End Date Zari Henry MD [address] [place] [address] PCP - General Internal Medicine 08/17/21 documented as of this encounter
--- OUTSIDE RECORDS SUMMARY | 2025-03-14 13:40 | XMS_ITS | Encounter Summary ---
Author Organization [facility] Address [address] [place] [address] Care Team Providers Care Residence Leasing Agent Name Role Phone Zari Henry MD Primary Care Provider [phone] Reason for Visit * Reason Comments Diabetes Mellitus Follow up Encounter Details Date Type Department Care Team (Late st Contact Info) Description 03/10/2025 4:40 PM EDT Office Visit Endocrinology - [place] [address] [place] [address] Lea Alex PA [address] [place] [address] DM (diabetes mellitus), type 2 with peripheral vascular complications (CMS/HCC V24, CMS/HCC V28) (Primary Dx); HTN (hypertension), benign Social History Tobacco Use Types Packs/Day Years [...] Sign Reading Time Taken Comments Blood Pressure - - Pulse - - Temperature 36.2 ??C (97.2 ??F) 03/10/2025 4:43 PM ED T Respiratory Rate - - Oxygen Saturation - - Inhaled Oxygen Concentration - - Weight 62.7 kg (138 lb 3.2 oz) 03/10/2025 4:43 P M EDT Height 165.1 cm (5' 5 ) 03/10/2025 4:43 PM EDT Body Mass Index 23 03/10/2025 4:43 PM EDT documented in this encounter Progress Notes * SACHI Antony - 03/10/2025 4:40 PM EDT CHIEF COMPLAINT: Diabetes Mellitus (Follow up) IDENTIFIER: Ciara Quiroga is a 49 y.o. old male HPI: Patient is a 49-year-old male with diabetes, hypertension, hyperlipidemia, PAD depression and anxiety who presents today for evaluation of diabetes. Current diabetic regimen: Using OmniPod insulin pump Current settings: Basal: 0.75units/h, total of 18 units/day Correction: 28 mg per DL. Carb ratio: 8 g/unit--he is not counting carbs on a regular day. Blood glucose target range: 130 Correct above: 150 Luis data: 7 day Average glucose 159 14-day average: 148 30 day average: 168 90-day average: 83 Time and ranges: High/Very high sugars: 26 % Target range between 70 and 180: 65 % Low sugars between 54 and 69: 9% Patient has been using the bolus setting more than 3 times a day resulting hypoglycemia afterwards.He typically boluses if his postmeal sugar is above 200. There are some episodes hypoglycemia overnight as well as during the day. He is trying to eat a diabetic friendly diet on most days. Not very physically active. A1c trending downwards improved to 8.1% He denies any polyuria, polydipsia, nausea vomiting, vision changes. Positive microalbumin urine test. Due for eye and foot exam. Patient has neuropathy and takes gabapentin Hyperlipidemia is treated with atorvastatin 40 mg once daily. BP at 153/67 with a repeat at 149/69. Lab Results Component Value Date HGBA1C 8.1 (H) 02/06/2025 ROS: GENERAL: No malaise HEENT: No changes in hearing or vision RESPIRATORY: No cough, wheezing or shortness of breath CARDIOVASCULAR: No chest pain, leg swelling or palpitations GI: No abdominal discomfort ENDO: see HPI NEURO: No persistent headache, syncope PAST MEDICAL HISTORY: Patient Active Problem List Diagnosis Date Noted DM (diabetes mellitus), type 2 with peripheral vascular complications ([facility] [place] [facility] V28) 12/05/2024 MAGDA (iron deficiency anemia) 04/06/2023 Requires supplemental oxygen 04/06/2023 CHF (congestive heart failure) ([facility] V24, [facility] V28) 01/06/2023 Obstructive sleep apnea syndrome 05/09/2022 Adrenal mass ([facility] V24) 03/24/2022 Claudication of both lower extremities ([facility] V24) 12/27/2021 Sleep related hypoxia 08/17/2021 Asthma-COPD overlap syndrome ([facility] [place]24, [facility] V28) 08/17/2021 Microscopic hematuria 12/25/2020 Condyloma acuminata 11/18/2020 PAD (peripheral artery disease) ([place] [address]494) 02/21/2020 Polycythemia 06/04/2018 Anxiety 08/01/2017 Microalbuminuria 04/14/2017 Depression 01/31/2017 HTN (hypertension), benign 01/31/2017 Hyperlipidemia 01/31/2017 Past Surgical History: Procedure Laterality Date UPPER GASTROINTESTINAL ENDOSCOPY 08/07/2018 : Mid esophageal biopsies: fungal esophagitis. SOCIAL HISTORY: Social History Tobacco Use Smoking status: Light Smoker Current packs/day: 0.50 Average packs/day: 0.5 packs/day for 34.4 years (17.2 ttl pk-yrs) Types: Cigarettes Start date: 10/30/1990 Smokeless tobacco: Never Substance Use Topics Alcohol use: Yes FAMILY HISTORY: Family History Problem Relation Name Age of Onset Colon cancer Neg Hx Family Status Relation Name Status Neg Hx (Not Specified) No partnership data on file MEDICATIONS DISCONTINUED/REORDERED: There are no discontinued medications. ACTIVE MEDICATIONS: Outpatient Medications Marked as Taking for the 03/10/25 encounter (Office Visit) with SACHI Antony Medication Sig Dispense Refill Advair Diskus 250-50 mcg/dose diskus inhaler Inhale 1 puff by mouth 2 (two) times a day. amLODIPine (NORVASC) 5 mg tablet Take 2 tablets (10 mg total) by mouth 1 (one) time each day. 180 tablet 0 aspirin 81 mg EC tablet Take 1 tablet (81 mg total) by mouth 1 (one) time each day. atorvastatin (LIPITOR) 40 mg tablet Take 1 tablet (40 mg total) by mouth 1 (one) time each day. 90 tablet 1 diclofenac (VOLTAREN) 1 % topical gel Apply 2 g topically 2 (two) times a day. 200 g 1 escitalopram (LEXAPRO) 10 mg tablet Take 1 tablet (10 mg total) by mouth 1 (one) time each day. 90 tablet 1 gabapentin (NEURONTIN) 300 mg capsule Take 1 capsule (300 mg total) by mouth 3 (three) times a day.270 each 1 hydrALAZINE (APRESOLINE) 100 mg tablet Take 1 tablet (100 mg total) by mouth 3 (three) times a day. insulin lispro 100 unit/mL injection INJECT 100 UNITS DIRECTED SEE ADMIN INSTRUCTIONS. USE PER INSULIN PUMP 30 mL 2 insulin pump cart,cont inf,BT (Omnipod Dash Pods, Gen 4,) cartridge Inject 1 each under the skin every 3 (three) days. 10 each 3 isosorbide mononitrate (IMDUR) 30 mg 24 hr tablet TAKE 1 TABLET BY MOUTH EVERY DAY 90 tablet 1 lisinopril (PRINIVIL,ZESTRIL) 40 mg tablet Take 1 tablet (40 mg total) by mouth 1 (one) time each day. magnesium oxide (MAG-OX) 400 mg magnesium tablet Take 1 tablet (400 mg total) by mouth 1 (one) timeeach day. 90 tablet 1 metoprolol succinate (TOPROL-XL) 100 mg 24 hr tablet TAKE 1 TABLET BY MOUTH EVERY DAY 90 tablet 1 omeprazole (PriLOSEC) [address] capsule Take 1 capsule (40 mg total) by mouth 1 (one) time each day.90 capsule 1 sucralfate (CARAFATE) 1 gram tablet Take 1 tablet (1 g total) by mouth 4 (four) times a day. 360 tablet 1 tadalafiL (CIALIS) 20 mg tablet Take 1 tablet (20 mg total) by mouth. torsemide (DEMADEX) 20 mg tablet 60 mg am 40 mg pm traZODone (DESYREL) 100 mg tablet Take 1 tablet (100 mg total) by mouth at bedtime. 90 each 1 Ventolin HFA 90 mcg/actuation inhaler INHALE 2 PUFFS INTO THE LUNGS EVERY 4 HOURS NEEDED FOR WHEEZING FOR UP TO 30 DAYS. 18 each 2 ALLERGIES: Dulaglutide and Metformin PHYSICAL EXAM: Temperature 36.2 ??C (97.2 ??F), temperature source Temporal, height 1.651 m (65 ), weight 62.7 kg (138 lb 3.2 oz). Body mass index is 23 kg/m??. BMI is 18.5 to 24.9 (within the normal range) and will be followed APPEARANCE: Alert and in no acute distress HEART: RRR LUNG: clear to auscultation NEURO: Awake, alert LABS: Lab Results Component Value Date HGBA1C 8.1 (H) 02/06/2025 HGBA1C 8.4 (H) 11/08/2024 Lab Results Component Value Date CREATININE 1.91 (H) 02/06/2025 Lab Results Component Value Date GLUCOSE 317 (H) 02/06/2025 IMAGING: IMPRESSION: 1. DM (diabetes mellitus), type 2 with peripheral vascular complications ([facility] V24, [facility] V28) 2. HTN (hypertension), benign PLAN: Diabetes: A1c trending downwards improved 8.1%--congratulated patient. We will address hypoglycemia with the reducing basal rate to 0.7 units/h. Changes made on OmniPod. Encouraged patient to use bolus setting before meals or a snack but to hold off on bolusing to treat hyperglycemia. Instead, he will cut back on carbohydrates avoid sugary snacks and drinks and add more protein along with healthy fats and fiber to diet. Also discussed carb counting which patient is not currently doing. Patient will send me an update in 5 to 7 days regarding glucose control and persistent hypoglycemia. Prevention and treatment in place. Blood pressure control is suboptimal, on amlodipine, torsemide, lisinopril and hydralazine. CKD, following nephrology. Schedule eye exam. Return here in 6 months for reevaluation of diabetes or sooner if needed. Medication and lab orders: Orders Placed This Encounter Procedures Hemoglobin A1c Basic metabolic panel None SACHI Caldera on 03/10/2025 at 5:11 PM EDT documented in this encounter Plan of Treatment Upcoming Encounters Date Type Department Care Team ([facility] st Contact Info) Description 03/20/2025 10:45 AM EDT Office Visit Pulmonolgy - [place] [address] [facility] [address] [place] [id number] Nisa Machado MD [address] [facility] [address] [place] [address] 04/23/2025 3:30 PM EDT Office Visit Adult Medicine [facility] [address] [place] [address] Zari Henry MD [address] [place], [place] 06/10/2025 12:00 PM EDT Office Visit Nephrology - [address] [place] [phone] Jong Hall MD [address] [facility] [address] [place] [phone] Scheduled Orders Name Type Priority Associated Diagnoses Orde r Schedule Hemoglobin A1c Lab Routine DM (diabetes mellitus), type 2 with peripheral vascular complications ([facility] V24, [facility] V28) Expected: 09/10/2025, Expires: 03/10/2026 Basic metabolic panel Lab Routine DM (diabetes mellitus), type 2 with peripheral vascular complications ([facility] V24, [facility] V28) Expected: 09/10/2025, Expires: 03/10/2026 documented as of this encounter Visit Diagnoses Diagnosis DM (diabetes mellitus), type 2 with peripheral vascular complications ([facility] V24, [facility] V28)- Primary Type II or unspecified type diabetes mellitus with peripheral circulatory disorders, not stated as uncontrolled HTN (hypertension), benign Essential hypertension, benign documented in this encounter Care Teams Residence Leasing Agent Relationship Specialty Start Date End Date Zari Henry MD [address] [place] [address] PCP - General Internal Medicine 08/17/21 documented as of this encounter
--- NOTE | 2025-03-14 14:13 | MHC.OFFVIS ---
Vital Signs 03/14/25 14:14 Height 5 ft 5 in Weight 130 lb 1.164 oz BMI 21.6 BP 140/68 H Blood Pressure Location Lt brachial Position Sitting Pulse 78 Pulse Source Pulse Oximeter Intake Visit Reasons: [facility] [place] d/c followup congestive heart failure Allergies dulaglutide [From Trulicity] Allergy (Verified 02/16/25 01:11) Unknown metformin [METFORMIN] Adverse Reaction (Mild, Verified 02/16/25 01:11) DIARRHEA, nausea and vomiting Medication List - Last Reconciled 03/14/25 by Alissa Wiggins, SYSTEMS MECHANIC-C albuterol sulfate 90 mcg/actuation 2 puffs inhalation Q4H PRN amlodipine 10 mg PO DAILY amoxicillin-pot clavulanate 500-125 mg (Augmentin) 1 tab PO BID aspirin 81 mg PO DAILY atorvastatin 40 mg PO DAILY escitalopram oxalate 10 mg PO DAILY ferrous sulfate (iron) 325 mg PO DAILY fluticasone propion-salmeterol 250-50 mcg/dose (Advair Diskus) 1 ea inhalation BID fluticasone propionate 50 mcg/actuation 1 spray intranasal BID hydralazine 100 mg PO TID 30 days insulin lispro 100 units DIRECTED insulin pump cart,auto,BT-cntr (Omnipod 5 G6 Intro Kit (Gen 5) subcutaneous cartridge with controller) isosorbide mononitrate ER 30 mg PO DAILY losartan 25 mg PO DAILY magnesium oxide 400 mg PO BIDPC metoprolol succinate ER 100 mg PO DAILY nicotine 21 mg transdermal DAILY omeprazole 40 mg PO DAILY@0630 sucralfate 1 g PO QID torsemide 20 mg PO DAILY torsemide 40 mg PO BID trazodone 100 mg PO BEDTIME HPI HPI [facility] [place] d/c followup congestive heart failure: Details: Ciara is a 49-year-old male with past medical history of diabetes, hyperlipidemia, hypertension, obstructive sleep apnea with CPAP use, COPD, smoking, alcohol abuse, CKD,? heart failure with preserved EF with repeat hospital admissions for decompensation who presents for follow-up. His last hospital admission was December 2024 where he was diuresed and sent home with torsemide 60 mg in the morning and and 40 mg in the afternoon. An echocardiogram at that time showed EF 40-45% with regional wall motion abnormality. Troponin level normal. Today he reports that he has been doing well since his hospital discharge. He says his weightis down to 128 lb at home. He says his breathing is normal. No PND, orthopnea or edema. No chest discomfort at rest or with activity. No heart palpitations, lightheadedness, presyncope, syncope, falls. He sleeps with the head of the bed elevated which is his norm. He has visiting nurse services help with his med management. He is not wearing CPAP but is using oxygen at night. He has been checking his home weights daily and finds them stable. Taking meds as directed. He says he is not drinking any alcohol. Smoking 1/2 pack of cigarettes per day. [facility] Medical History Tobacco use CKD (chronic kidney disease) stage 1, GFR 90 ml/min or greater YARELIS (obstructive sleep apnea) Acute on chronic diastolic (congestive) heart failure KELVIN (acute kidney injury) Chronic heart failure with preserved ejection fraction (HFpEF) Depression Acute on chronic anemia Anxiety HLD (hyperlipidemia) Diabetes HTN (hypertension) Asthma PAD (peripheral artery disease) Surgical History History of esophagogastroduodenoscopy S/P angiogram of extremity Family History Father Alzheimer disease CAD (coronary artery disease) Social History Household Members: None Household Members Other:: 4 Housing: Apartment Do you presently have visiting nurse or other home services: Yes Unable to assess alcohol history related to: Unknown Alcohol intake: current Alcohol intake frequency: holidays/special occasions only Alcohol type: hard liquor Comment: pt is independent in room Patient Tobacco Use Status: Current everyday Tobacco user Tobacco use type: Cigarette Cigarette Packs Per Day: 1 Cigarettes Per Day: 20.0 Years Smoked: 35 e-Cigarette/Vaping Use: Never Used Second Hand Smoke Exposure: No Substance Use Type: Marijuana Advance Directives Date on File: 06/21/21 service: No Current occupational status: disabled Review of Systems Const All systems reviewed & are unremarkable except as noted in HPI and below Reports fatigue and Denies weakness ENT Denies dizziness Card Denies chest pain, Denies chest pain with activity, Denies syncope, Denies rapid heart rate, Denies pedal edema, Denies edema, Denies leg edema, Denies lightheadedness, Denies palpitations, Denies dyspnea, Reports dyspnea on exertion and Denies orthopnea Resp Denies cough, Denies dyspnea and Reports dyspnea on exertion GI Denies hematochezia and Denies change in stool character Musc Denies abnormal gait, Denies muscle cramps, Denies muscle weakness, Denies numbness, Denies radiating pain into limb and Denies tingling Neuro Denies abnormal gait, Denies dizziness, Denies syncope, Denies numbness, Denies tingling and Denies weakness Endo Reports fatigue and Denies palpitations Physical Exam Vital Signs: Last Vital Signs Pulse 78 03/14/25 14:14 BP 140/68 H 03/14/25 14:14 BMI result Body Mass Index 21.6 Const General: cooperative, healthy appearing, comfortable and no acute distress Orientation/consciousness: patient oriented x3 Neck Neck: Yes normal visual inspection and Yes no JVD Resp Effort & Inspection: normal respiratory effort Auscultation: clear to auscultation bilaterally, no rales, no rhonchi and no wheezes Cardio Jugular venous distension: no JVD Rate: regular rate Rhythm: regular rhythm Heart sounds: S1 normal heart sound present, S2 normal heart sound present, no murmurs and no rubs Neuro General: patient oriented x3 Extrem General: Yes normal to inspection and No no pedal edema Psych Appearance: grossly normal Mental Status: mental status grossly normal Speech and movement: Normal speech and movement present Assessment & Plan Assessment & Plan (1) Congestive heart failure: Code(s): I50.9 - Heart failure, unspecified Category: Medical Qualifiers: Heart failure type: diastolic Plan: History of heart failure with preserved EF with recurrent hospital admissions for respiratory failure, Congestive heart failure, KELVIN/CKD with last hospital discharge 01/15/25. Last echo 01/14/2025 showed EF 40-45%, basal inferior and mid inferior lateral akinesis, increased right atrial pressure, mild pulmonary hypertension. He was diuresed and sent home with torsemide 60 mg in the a.m. and 40 mg in the p.m.. At this time he does not appear fluid overloaded. NYHA class 1-2. No recent ischemic eval for review. Will order an exercise nuclear stress test for further evaluation. He says he can walk on a treadmill. May need to use Lexiscan if unable. Signs and symptoms of heart failure reviewed with him in detail. Continue low-salt diet, med compliance and recommended smoking cessation. (2) YARELIS (obstructive sleep apnea): Code(s): G47.33 - Obstructive sleep apnea (adult) (pediatric) Category: Medical Plan: Tells me that he wears O2 at night. (3) HTN (hypertension): Code(s): I10 - Essential (primary) hypertension Category: Medical Qualifiers: Hypertension type: primary hypertension Qualified Code(s): I10 - Essential (primary) hypertension Plan: Blood pressure goal less than 130/80. Mildly elevated initially, recheck done by me 132/62. No med changes made. Continue amlodipine, torsemide hydralazine, metoprolol, isosorbide. (4) Hospital discharge follow-up: Code(s): Z09 - Encounter for follow-up examination after completed treatment for conditions other than malignant neoplasm Category: Medical Plan: Recent [facility] [place] for Congestive heart failure. (5) Acute on chronic diastolic (congestive) heart failure: Code(s): I50.33 - Acute on chronic diastolic (congestive) heart failure Category: Medical Plan: As above (6) CKD (chronic kidney disease) stage 1, GFR 90 ml/min or greater: Code(s): N18.1 - Chronic kidney disease, stage 1 Category: Medical Plan: He has known CKD and follows with Nephrology. Labs done 02/16/2025 showed creatinine 1.53 (7) Abnormal echocardiography: Code(s): R93.1 - Abnormal findings on diagnostic imaging of heart and coronary circulation Category: Medical Plan: Echo with finding of mildly reduced EF and regional wall motion abnormality. Checking nuclear stress test. Plan Time spent on chart review, documentation, interview assessment Proceed with a nuclear stress test for coronary evaluation. Monitor for signs of heart failure. Adjust diuretics as needed. Discussed dietary modifications and smoking cessation strategies. Address anxiety in collaboration with primary care. Patient was informed and verbally consented to the use of an ambient scribe for clinic note documentation during this visit. I discussed heart failure management and potential coronary artery involvement needing evaluation through a nuclear stress test, emphasizing the importance of identifying arterial blockages and adjusting treatment strategies accordingly. We reviewed fluid management, medication adherence, and potential diuretic adjustment based on daily weight monitoring. I counseled on reducing sodium intake and tobacco cessation, addressing the patient's anxiety with primary care support noted. Consent obtained for stress test and outlined abstinence from caffeine before testing, with follow-up to discuss results. Orders: Orders CA stress test Today I50.33 - Acute on chronic diastolic (congestive) heart failure, R93.1 - Abnormal findings on diagnostic imaging of heart and coronary circulation NM cardiolite stress test Today I50.33 - Acute on chronic diastolic (congestive) heart failure, R93.1 - Abnormal findings on diagnostic imaging of heart and coronary circulation Patient Instructions: - Monitor weight daily and watch for rapid changes. - Limit salt intake and monitor dietary sodium. - Abstain from smoking; consider nicotine replacement. - Continue wearing oxygen at night. - Refrain from caffeine 12-24 hours before the stress test. - Follow through with scheduled stress test. - Take prescribed medications as directed by the nurse. - Contact healthcare provider if symptoms worsen or hospitalization seems necessary. Coding Level of Care Code Est Pt Level 4 (20168) Complex EM visit Add On G2211 Diagnoses Congestive heart failure I50.9 Heart failure type: diastolic YARELIS (obstructive sleep apnea) G47.33 Primary hypertension I10 Hypertension type: primary hypertension Hospital discharge follow-up Z09 Acute on chronic diastolic (congestive) heart failure I50.33 CKD (chronic kidney disease) stage 1, GFR 90 ml/min or greater N18.1 Abnormal echocardiography R93.1 Time Spent (min) 36
[2025-03-14 14:14] VITALS: BP 140/68; PULSE 78; BMI 21.6
== END 2025-03-14 14:42 | disposition home or self-care (01) ==
LOC: HO.HCS 13:38
PROVIDERS: Visit Provider Nurse Practitioner Family
DX: I50.9 Heart failure, unspecified (principal); G47.33 Obstructive sleep apnea (adult) (pediatric); I12.9 Hypertensive chronic kidney disease with stage 1 through stage 4 chronic kidney disease, or unspecified chronic kidney disease; Z09 Encounter for follow-up examination after completed treatment for conditions other than malignant neoplasm; I50.33 Acute on chronic diastolic (congestive) heart failure; N18.1 Chronic kidney disease, stage 1; R93.1 Abnormal findings on diagnostic imaging of heart and coronary circulation
CPT/HCPCS: 99214; G2211

== ENCOUNTER → 2025-03-14 13:37 | Outpatient (BNVA) | payer OTHER, SELFPAY | PROVIDERS: Visit Provider Nurse Practitioner Family | DX: I13.0 Hypertensive heart and chronic kidney disease with heart failure and stage 1 through stage 4 chronic kidney disease, or unspecified chronic kidney disease (principal); I50.33 Acute on chronic diastolic (congestive) heart failure; N18.1 Chronic kidney disease, stage 1; E78.5 Hyperlipidemia, unspecified; G47.33 Obstructive sleep apnea (adult) (pediatric); J44.9 Chronic obstructive pulmonary disease, unspecified; F17.210 Nicotine dependence, cigarettes, uncomplicated; R93.1 Abnormal findings on diagnostic imaging of heart and coronary circulation; Z09 Encounter for follow-up examination after completed treatment for conditions other than malignant neoplasm; Z99.81 Dependence on supplemental oxygen | CPT/HCPCS: 99212 ==

== ENCOUNTER 2025-03-20 11:47 | Emergency (ER) | payer OTHER, SELFPAY ==
--- NOTE | ~2025-03-20 | XR_ITS ---
EXAMINATION: XR CHEST 2 VIEWS HISTORY: Cough, CP, nausea, vomiting, diarrhea COMPARISON: Comparison is made with the prior examination dated 02/16/2025 FINDINGS: AP and lateral views of the chest are submitted. The lungs are expanded and clear. There is no pleural effusion, pneumothorax, or pulmonary vascular congestion. The heart is normal in size. The bones are intact. XR/XR chest 2V IMPRESSION: No acute cardiopulmonary abnormality. Electronically signed by: Yevgeniy Jhaveri MD 03/20/2025 01:52 PM EDT
[2025-03-20 11:52] VITALS: BP 169/83; PULSE 87; O2SAT 100
[2025-03-20 11:57] VITALS: BP 165/74; PULSE 80; RESP 20; TEMP 36.8; O2SAT 100; BMI 21.3
--- NOTE | 2025-03-20 12:02 | ECG_ITS ---
Test Reason : CHEST PAIN Blood Pressure : */* mmHG Vent. Rate : 84 BPM Atrial Rate : 84 BPM P-R Int : 142 ms QRS Dur : 74 ms QT Int : 390 ms P-R-T Axes : 53 52 64 degrees QTcB Int : 460 ms Normal sinus rhythm Normal ECG When compared with ECG of 16-Feb-2025 01:34, No significant change was found Referred By: Generic ED Physician Electronically Signed By: Sadiq Rivera
[2025-03-20 12:25] LABS: MANUAL DIFF FLAG NO
[2025-03-20 12:28] LABS: Basophils Absolute Auto 0.1 X10*3/uL (0.0-0.2); Basophils Percent Auto 0.5 % (0-2); Eosinophils Percent Auto 0.3 % (0-4); Hematocrit 38.6 % (42.0-52.0); Hemoglobin 12.5 g/dl (14.0-18.0); Imm Gran Abs Auto 0.04 X10*3/uL (0.00-0.03); Imm Gran Pct Auto 0.3 % (0.0-0.4); Lymphocytes Absolute Auto 0.8 X10*3/uL (1.2-4.9); Lymphocytes Percent Auto 7.1 % (20-40); Mean Corpuscular HGB Conc 32.4 g/dl (31.0-36.0); Mean Corpuscular Hemoglobin 23.2 pg (27.0-33.0); Mean Corpuscular Volume 71.6 fL (80.0-98.0); Mean Platelet Volume 9.9 fL (9.4-12.4); Monocytes Absolute Auto 0.5 X10*3/uL (0.1-1.2); Monocytes Percent Auto 4.3 % (2-11); Neutrophils Absolute Auto 10.2 x10*3/uL (2.0-8.3); Neutrophils Percent Auto 87.5 % (45-73); Platelet Count 298 X10*3/uL (160-400); Red Blood Count 5.39 X10*6/uL (4.60-5.80); Red Cell Distribution Width 25.6 % (11.0-16.0); White Blood Count 11.7 X10*3/uL (4.8-10.8)
[2025-03-20 12:45] LABS: B Type Natriuretic Peptide 225 pg/mL (<100)
[2025-03-20 12:54] LABS: Troponin-I High Sensitivity < 2.7 ng/L (<3.5-35.0)
[2025-03-20 13:00] LABS: Appearance Urine Clear; Color Urine Yellow; Glucose Urine UA 100 mg/dL (Negative); Leukocyte Esterase Urine Negative (Negative); Nitrite Urine Negative (Negative); PH 7.5 (5.0-9.0); UMIC TRIGGER UACC YES; Urine Blood Negative (Negative); Urine Ketones 15 mg/dL (Negative); Urine Protein 300 (3+) mg/dL (Neg-Trace)
[2025-03-20 13:02] LABS: Influenza A PCR NEGATIVE (Negative); Influenza B PCR NEGATIVE (Negative); Resp Syncy Virus RNA Qual PCR NEGATIVE (Negative); SARS COV2 PCR INHOUSE NEGATIVE (Negative)
[2025-03-20 13:02] LABS: Alanine Aminotransferase 15 U/L (0-40); Albumin Level 3.7 g/dL (3.5-5.0); Alkaline Phosphatase 109 U/L (39-117); Anion Gap 19 (12-20); Aspartate Amino Transferase 31 U/L (5-37); Bilirubin Total 0.5 mg/dL (0.0-1.0); Blood Urea Nitrogen 25 mg/dL (9-16); Calcium 8.7 mg/dL (8.4-10.2); Carbon Dioxide 22 mmol/L (22-29); Chloride 106 mmol/L (96-108); Creatinine Clr Calc Pharmacy 59.4; Estimated Glomerular Filt Rate > 60; Glucose Random 287 mg/dL (60-115); Magnesium 1.4 mg/dL (1.6-2.6); Potassium 3.9 mmol/L (3.3-5.1); Sodium 143 mmol/L (135-145); Total Protein 6.8 g/dL (6.5-8.0)
[2025-03-20 13:06] LABS: Bacteria Urine None Seen (None Seen); Hyaline Casts Urine 0-2 /LPF (0-2); RBC Urine 0-2 /HPF (0-2); Squamous Epithelial Cell Urine 0-2 /HPF (0-2); WBC Urine 0-5 /HPF (0-5)
--- NOTE | 2025-03-20 13:09 | ED.NAVMDI ---
HPI - Nausea/Vomiting/Diarrhea General Chief complaint: Nausea/Vomiting/Diarrhea Stated complaint: FLU LIKE SYMPTOMS, HOME 02 Time Seen by Provider: 03/20/25 13:03 Source: patient Mode of arrival: ambulatory Limitations: no limitations History of Present Illness ED Provider: Dr. Didier Iverson HPI Narrative: 49-year-old male with a history of acute kidney injury, congestive heart failure, hypertension, depression, COPD, YARELIS, hyperlipidemia, diabetes, peripheral artery disease who presents emergency department for evaluation of chest pain, shortness of breath, nonproductive cough, nausea, vomiting and diarrhea. The patient states that his symptoms started yesterday. Patient states that he has had chest pain and points to the center of his chest when asked to localize the pain. Pain is a constant, sharp, pressure-like pain which is 6/10 at its worst, pain is exacerbated by breathing and by coughing. Patient states he has had similar pain in the past when he was diagnosed with pneumonia. Patient is complaining of shortness of breath at rest as well as shortness of breath with exertion. Patient had subjective fever and chills at home. He states he has had nausea and he has been dry heaving. Patient had 4-5 loose stools. Patient states that he drinks vodka and orange juice several drinks once a month. Related Data Home Medications ?Medication ?Instructions ?Recorded ?Confirmed escitalopram oxalate 10 mg tablet 10 mg PO DAILY 08/01/22 03/14/25 trazodone 50 mg tablet 100 mg PO BEDTIME 08/01/22 03/14/25 aspirin 81 mg tablet,delayed 81 mg PO DAILY 10/06/22 03/14/25 release atorvastatin 40 mg tablet 40 mg PO DAILY 10/06/22 03/14/25 metoprolol succinate 100 mg 100 mg PO DAILY 10/06/22 03/14/25 tablet,extended release 24 hr fluticasone 250 mcg-salmeterol 50 1 ea inhalation BID 12/22/23 03/14/25 mcg/dose blistr powdr for inhalation (Advair Diskus) albuterol sulfate 90 mcg/actuation 2 puff inhalation Q4H PRN 04/26/24 03/14/25 aerosol inhaler bronchospasm amlodipine 5 mg tablet 10 mg PO DAILY 06/02/24 03/14/25 insulin pump cartridge,automated 06/11/24 03/14/25 dose,BT with controller subcutaneous (Omnipod 5 G6 Intro Kit (Gen 5) subcutaneous cartridge with controller) omeprazole 40 mg capsule,delayed 40 mg PO DAILY@0630 07/15/24 03/14/25 release insulin lispro 100 unit/mL 100 unit DIRECTED 11/19/24 03/14/25 subcutaneous solution torsemide 40 mg tablet 40 mg PO BID 12/20/24 03/14/25 isosorbide mononitrate 30 mg 30 mg PO DAILY 01/14/25 03/14/25 tablet,extended release 24 hr losartan 25 mg tablet 25 mg PO DAILY 01/14/25 03/14/25 sucralfate 1 gram tablet 1 g PO QID 01/14/25 03/14/25 Previous Rx's ?Medication ?Instructions ?Recorded magnesium oxide 400 mg (241.3 mg 400 mg PO BIDPC #60 tabs 08/20/22 magnesium) tablet hydralazine 100 mg tablet 100 mg PO TID 30 days #90 tabs 05/09/23 fluticasone propionate 50 1 spray intranasal BID #16 grams 07/19/24 mcg/actuation nasal spray,suspension nicotine 21 mg/24 hr daily 21 mg transdermal DAILY #90 ea 11/26/24 transdermal patch ferrous sulfate 325 mg (65 mg 325 mg PO DAILY #30 tabs 01/15/25 iron) tablet (iron) torsemide 20 mg tablet 20 mg PO DAILY #90 tabs 01/15/25 amoxicillin 500 mg-potassium 1 tab PO BID #14 tabs 02/16/25 clavulanate 125 mg tablet (Augmentin) acetaminophen 500 mg tablet 1,000 mg (2 x 500 mg) PO Q6H PRN 03/20/25 (Tylenol Extra Strength) fever or pain #20 tabs doxycycline hyclate 100 mg tablet 100 mg PO Q12H 7 days #14 tabs 03/20/25 ibuprofen 400 mg tablet 400 mg PO TID PRN fever or pain 03/20/25 #30 tabs ondansetron 4 mg disintegrating 4 mg PO Q6-8H PRN nausea and 03/20/25 tablet vomiting #14 tabs Allergies Allergy/AdvReac Type Severity Reaction Status Date / Time dulaglutide [From [facility]] Allergy Unknown Verified 03/20/25 12:01 metformin [METFORMIN] AdvReac Mild DIARRHEA, Verified 03/20/25 12:01 nausea and vomiting Review of Systems Review of Systems: Yes all other systems are reviewed and are negative [facility] Past Medical History [facility] Narrative: Social history: The patient smokes 1/2 pack of cigarettes per day times 33 years. He drinks 2-3 vodka and orange juice drinks per month. He denies drug use. Medical History Tobacco use CKD (chronic kidney disease) stage 1, GFR 90 ml/min or greater YARELIS (obstructive sleep apnea) Acute on chronic diastolic (congestive) heart failure KELVIN (acute kidney injury) Chronic heart failure with preserved ejection fraction (HFpEF) Depression Acute on chronic anemia Anxiety HLD (hyperlipidemia) Diabetes HTN (hypertension) Asthma PAD (peripheral artery disease) Surgical History History of esophagogastroduodenoscopy S/P angiogram of extremity Family History Family History Father Alzheimer disease CAD (coronary artery disease) Social History Social History Household Members: None Household Members Other:: 4 Housing: Apartment Do you presently have visiting nurse or other home services: Yes Unable to assess alcohol history related to: Unknown Alcohol intake: current Alcohol intake frequency: holidays/special occasions only Alcohol type: hard liquor Comment: pt is independent in room Patient Tobacco Use Status: Current everyday Tobacco user Tobacco use type: Cigarette Cigarette Packs Per Day: 1 Cigarettes Per Day: 20.0 Years Smoked: 35 Smoked in Last 30 Days: Yes e-Cigarette/Vaping Use: Never Used Second Hand Smoke Exposure: No Use of substances other than those prescribed or required for medical reasons: Yes Substance Use Type: Marijuana Substance Use Frequency: Occasionally Advance Directives: Yes Advance Directives on File: Yes Advance Directives Date on File: 06/21/21 Do you have a plan to hurt others: No Plan service: No Current occupational status: disabled Physical Exam Vital Signs: Vital Signs: Last Vital Signs Temp 98.5 F 03/20/25 14:07 Pulse 81 03/20/25 14:07 Resp 12 03/20/25 14:07 BP 166/85 H 03/20/25 14:07 Pulse Ox 100 03/20/25 14:07 O2 Del Method Nasal Cannula 03/20/25 14:07 O2 Flow Rate 2 03/20/25 14:07 Oxygen Flow Rate 2 03/20/25 11:57 BMI result Body Mass Index 21.3 Vital signs revealed an elevated blood pressure of 165/74 otherwise unremarkable Exam: General: Awake, alert in no distress Head: Normocephalic, atraumatic EENT: PERRL, Lids normal, sclera normal, conjunctiva normal, nose normal , ears normal, throat without erythema or exudates Neck: Supple, no adenopathy Lung: breath sounds symmetric, no wheezing, rales or rhonchi Chest: symmetric movement, tenderness over the sternum and costochondral joints bilaterally Heart: regular rate and rhythm, normal S1, S2 no murmurs or rubs Abdomen: soft, non-tender, nondistended, normal bowel sounds Back: no vertebral tenderness, no CVAT Extremities: no deformities, moves all extremities symmetrically Neuro: Awake, alert, oriented, normal speech, cranial nerves intact, moves all extremities symmetrically Psych: Pleasant, cooperative Course Course Course Narrative: 49-year-old male with history of diabetes mellitus, COPD, congestive heart failure with normal VF, chronic kidney disease, PAD, GI bleed, who presents to the emergency department for evaluation of shortness of breath, light headedness and chest pain. The patient states that he ate dinner and then after dinner he gradually became short of breath. He states that he checked his O2 saturation at home and it was 75%. He called an ambulance the paramedics documented an O2 saturation of 74 %, on 2 L he came up to 92%. Patient states that he has been having intermittent chest pain over the last 2 days. He does have a history of congestive heart failure and has noted swelling in his abdomen and lower extremities right greater than left. Medications Administered Discontinued Medications Generic Name Dose Route Start Last Admin Trade Name Freq PRN Reason Stop Dose Admin Doxycycline Monohydrate 100 mg 03/20/25 15:40 03/20/25 15:48 Doxycycline Monohydrate 100 Mg Capsule PO 03/20/25 15:41 100 mg ONCE ONE Administration Sodium Chloride 1,000 mls @ 999 mls/hr 03/20/25 13:24 03/20/25 15:50 Ns IV 03/20/25 14:24 Infused .Q1H1M STA Infusion Magnesium Sulfate 2 gm in 50 mls @ 25 mls/hr 03/20/25 13:28 03/20/25 15:24 Magnesium Sulfate/H2o IV 03/20/25 15:27 Infused ONCE ONE Infusion Ketorolac Tromethamine 15 mg 03/20/25 13:24 03/20/25 13:46 Ketorolac Tromethamine 15 Mg/Ml Vial IVPUSH 03/20/25 13:25 15 mg ONCE STA Administration Morphine Sulfate 4 mg 03/20/25 15:40 03/20/25 15:49 Morphine Sulfate 4 Mg/Ml Cartridge IVPUSH 03/20/25 15:41 4 mg ONCE STA Administration Protocol Ondansetron HCl 4 mg 03/20/25 13:24 03/20/25 13:49 Ondansetron Hcl 4 Mg/2 Ml Vial IVPUSH 03/20/25 13:25 4 mg ONCE ONE Administration Ondansetron HCl 4 mg 03/20/25 15:40 03/20/25 15:48 Ondansetron Hcl 4 Mg/2 Ml Vial IVPUSH 03/20/25 15:41 4 mg ONCE ONE Administration Medical Decision Making Medical Decision Making MDM Narrative: 49-year-old male with a history of acute kidney injury, congestive heart failure, hypertension, depression, COPD, YARELIS, hyperlipidemia, diabetes, peripheral artery disease who presents emergency department for evaluation of chest pain, shortness of breath, nonproductive cough, nausea, vomiting and diarrhea. The patient states that his symptoms started yesterday. Patient states that he has had chest pain and points to the center of his chest when asked to localize the pain. Pain is a constant, sharp, pressure-like pain which is 6/10 at its worst, pain is exacerbated by breathing and by coughing. Patient states he has had similar pain in the past when he was diagnosed with pneumonia. Patient is complaining of shortness of breath at rest as well as shortness of breath with exertion. Patient had subjective fever and chills at home. He states he has had nausea and he has been dry heaving. Patient had 4-5 loose stools. Patient drinks 2-3 vodka orange juice drinks per month, denies drug use. Vital signs revealed elevated blood pressure otherwise unremarkable. Physical examination did reveal tenderness palpation over his sternum and costochondral joints bilaterally otherwise was unremarkable. Differential diagnosis: ?Includes but is not limited to viral syndrome, COVID-19, influenza, RSV, pneumonia, bronchitis, myocardial infarction, myocardial ischemia, costochondritis, anemia, electrolyte abnormalities Course: 13:35 My interpretation patient's laboratory evaluation is as follows: WBC elevated 11,700. Chronic microcytic anemia with an H&H of 12 and 38 with an MCV of 71. Elevated BUN of 25 with a normal creatinine. Elevated glucose of 287. Troponin was below detectable limits. COVID-19, influenza and RSV tests were negative. Urinalysis was positive for protein and glucose. Microscopic was negative for bacteria and white blood cells-no evidence for urinary tract infection. Patient's magnesium was low at 1.4. Given the patient's undetectable high sensitive troponin I and an EKG is unchanged from his previous I do not think that his chest pain is secondary to myocardial injury or infarction and I did discuss this with him. I will obtain a chest x-ray to evaluate the patient for pneumonia. The patient was ordered to get normal saline IV x1 L, Toradol 15 mg IV and Zofran 4 mg IV. Patient was also ordered to get magnesium 2 g IV. 15:41 WBC elevated 11,700-similar elevations in the past. Chronic microcytic anemia with an H&H of 12.5 and 38.6 with an MCV of 71.6. BUN elevated 25. Glucose elevated to 87. Magnesium low 1.4. LFTs were normal. Troponin was below detectable limits. Twelve EKG revealed less than [address] segment depression V4 through V6, similar to previous EKG. Given the fact that the patient has had chest pain for greater than 6 hours and a nondetectable high sensitive troponin I, do not think that the patient's chest pain is secondary to myocardial injury or infarction. Patient's pain is most likely pleuritic pain versus costochondritis. Patient did not get significant relief of his pain or nausea with the above treatment therefore he was ordered to get morphine 4 mg IV, Zofran 4 mg IV. Given his smoking history I am concerned that he might have bacterial bronchitis therefore he was treated with doxycycline 100 mg orally. Admission/Observation Consideration of admission/observation: Escalation of care including admission/observation considered (Yes) Lab Data MDM Lab Attestation statement: I reviewed the patient's lab results. 03/20/25 12:19 03/20/25 12:28 Labs: Lab Results 03/20/25 03/20/25 03/20/25 Range/Units 11:58 12:19 12:28 WBC 11.7 H (4.8-10.8) X10*3/uL RBC 5.39 D (4.60-5.80) X10*6/uL Hgb 12.5 L D (14.0-18.0) g/dl Hct 38.6 L D (42.0-52.0) % MCV 71.6 L (80.0-98.0) fL MCH 23.2 L (27.0-33.0) pg MCHC 32.4 (31.0-36.0) g/dl RDW 25.6 H (11.0-16.0) % Plt Count 298 (160-400) X10*3/uL MPV 9.9 (9.4-12.4) fL Immature Gran % (Auto) 0.3 (0.0-0.4) % Neut % (Auto) 87.5 H (45-73) % Lymph % (Auto) 7.1 L (20-40) % [place] % (Auto) 4.3 (2-11) % Eos % (Auto) 0.3 (0-4) % Baso % (Auto) 0.5 (0-2) % Lymph # (Auto) 0.8 L (1.2-4.9) X10*3/uL [place] # (Auto) 0.5 (0.1-1.2) X10*3/uL Eos # (Auto) 0.0 (0.0-0.4) X10*3/uL Baso # (Auto) 0.1 (0.0-0.2) X10*3/uL Abs Immat Gran (auto) 0.04 H (0.00-0.03) X10*3/uL Absolute Neuts (auto) 10.2 H (2.0-8.3) x10*3/uL Absolute Nucleated RBC 0.000 (0.0-0.012) X10*3/uL Nucleated RBC % (auto) 0.0 (0.0-0.2) /100WBC Sodium 143 (135-145) mmol/L Potassium 3.9 (3.3-5.1) mmol/L Chloride 106 (96-108) mmol/L Carbon Dioxide 22 (22-29) mmol/L Anion Gap 19 (12-20) BUN 25 H (9-16) mg/dL Creatinine 1.22 (0.5-1.4) mg/dL Estim Creat Clear Calc 59.4 Estimated GFR > 60 POC Glucose 280 H (60-115) mg/dL Random Glucose 287 H (60-115) mg/dL Calcium 8.7 D (8.4-10.2) mg/dL Magnesium 1.4 L* (1.6-2.6) mg/dL Total Bilirubin 0.5 (0.0-1.0) mg/dL AST 31 (5-37) U/L ALT 15 (0-40) U/L Alkaline Phosphatase 109 (39-117) U/L Troponin I High Sens < 2.7 (<3.5-35.0) ng/L B-Natriuretic Peptide 225 H (<100) pg/mL Total Protein 6.8 (6.5-8.0) g/dL Albumin 3.7 (3.5-5.0) g/dL Urine Color Urine Appearance Urine pH (5.0-9.0) Ur Specific Bowler (1.005-1.025) Urine Protein (Neg-Trace) mg/dL Urine Glucose (UA) (Negative) mg/dL Urine Ketones (Negative) mg/dL Urine Blood (Negative) Urine Nitrite (Negative) Ur Leukocyte Esterase (Negative) Urine RBC (0-2) /HPF Urine WBC (0-5) /HPF Ur Squamous Epith Cells (0-2) /HPF Urine Bacteria (None Seen) Hyaline Casts (0-2) /LPF Influenza Type A (PCR) NEGATIVE (Negative) Influenza Type B (PCR) NEGATIVE (Negative) RSV RNA Qual (PCR) NEGATIVE (Negative) SARS-CoV-2 RNA (RT-PCR) NEGATIVE (Negative) 03/20/25 Range/Units 12:51 WBC (4.8-10.8) X10*3/uL RBC (4.60-5.80) X10*6/uL Hgb (14.0-18.0) g/dl Hct (42.0-52.0) % MCV (80.0-98.0) fL MCH (27.0-33.0) pg MCHC (31.0-36.0) g/dl RDW (11.0-16.0) % Plt Count (160-400) X10*3/uL MPV (9.4-12.4) fL Immature Gran % (Auto) (0.0-0.4) % Neut % (Auto) (45-73) % Lymph % (Auto) (20-40) % [place] % (Auto) (2-11) % Eos % (Auto) (0-4) % Baso % (Auto) (0-2) % Lymph # (Auto) (1.2-4.9) X10*3/uL [place] # (Auto) (0.1-1.2) X10*3/uL Eos # (Auto) (0.0-0.4) X10*3/uL Baso # (Auto) (0.0-0.2) X10*3/uL Abs Immat Gran (auto) (0.00-0.03) X10*3/uL Absolute Neuts (auto) (2.0-8.3) x10*3/uL Absolute Nucleated RBC (0.0-0.012) X10*3/uL Nucleated RBC % (auto) (0.0-0.2) /100WBC Sodium (135-145) mmol/L Potassium (3.3-5.1) mmol/L Chloride (96-108) mmol/L Carbon Dioxide (22-29) mmol/L Anion Gap (12-20) BUN (9-16) mg/dL Creatinine (0.5-1.4) mg/dL Estim Creat Clear Calc Estimated GFR POC Glucose (60-115) mg/dL Random Glucose (60-115) mg/dL Calcium (8.4-10.2) mg/dL Magnesium (1.6-2.6) mg/dL Total Bilirubin (0.0-1.0) mg/dL AST (5-37) U/L ALT (0-40) U/L Alkaline Phosphatase (39-117) U/L Troponin I High Sens (<3.5-35.0) ng/L B-Natriuretic Peptide (<100) pg/mL Total Protein (6.5-8.0) g/dL Albumin (3.5-5.0) g/dL Urine Color Yellow Urine Appearance Clear Urine pH 7.5 (5.0-9.0) Ur Specific Bowler 1.010 (1.005-1.025) Urine Protein 300 (3+) H (Neg-Trace) mg/dL Urine Glucose (UA) 100 H (Negative) mg/dL Urine Ketones 15 (Negative) mg/dL Urine Blood Negative (Negative) Urine Nitrite Negative (Negative) Ur Leukocyte Esterase Negative (Negative) Urine RBC 0-2 (0-2) /HPF Urine WBC 0-5 (0-5) /HPF Ur Squamous Epith Cells 0-2 (0-2) /HPF Urine Bacteria None Seen (None Seen) Hyaline Casts 0-2 (0-2) /LPF Influenza Type A (PCR) (Negative) Influenza Type B (PCR) (Negative) RSV RNA Qual (PCR) (Negative) SARS-CoV-2 RNA (RT-PCR) (Negative) Independent Interpretation I performed an independent interpretation of an: EKG and Plain X-Ray Interpretation: My independent interpretation patient's 12 EKG done on 03/20/2025 at 12:04 hours is as follows: Normal sinus rhythm rate of 84, normal MO interval, QRS duration and QTC interval, artifact in the baseline, no ST segment elevation, less than [address] segment depression V4 through V6, no PACs, no PVCs, no significant T-wave abnormalities. Compared to EKG dated 02/16/2025 done at 01:[address] segment depressions V4 through V5 when changed My independent interpretation patient's chest x-ray is as follows: No acute disease Radiology Impression Discussion of test interpretation with radiology: I have reviewed the radiologist's reading. Radiologist Impression: XR chest 2V IMPRESSION: No acute cardiopulmonary abnormality. Electronically signed by: Yevgeniy Jhaveri MD 03/20/2025 01:52 PM EDT External Record Review External record reviewed: Inpatient record Prescription Management I considered prescription management with: Pain Medication (Tylenol, ibuprofen), Antibiotic (Doxycycline) and Other (Antiemetic: Zofran) Chronic Conditions Patient?s care impacted by: Other (Chronic kidney disease, peripheral artery disease, CHF) Discharge Plan Discharge Clinical Impression: Acute bronchitis, Acute costochondritis, Nausea & vomiting, Tobacco use disorder Patient Disposition: Home, Self-Care Instructions: Acute Bronchitis (ED), Acute Nausea and Vomiting (DC) Additional Instructions: Your blood work was unremarkable and consistent with your previous lab values. Your EKG was no different than your previous EKG and the marker for heart attack/heart damage (troponin) was below detectable limits which is reassuring. Your chest x-ray was normal with no evidence for pneumonia at this time. Your COVID 19, influenza and RSV tests were negative. At this time, I believe that you either have a viral infection or a bacterial bronchitis which is causing your symptoms. Take ibuprofen 200 mg pills, 2 pills every 6 hours as needed for pain or fever. Take Tylenol (acetaminophen) 500 mg pills, 2 pills every 6 hours as needed for pain or fever. Take Zofran ODT 4 mg pills, 1 pill dissolved in your mouth every 8 hours as needed for nausea and vomiting. Take doxycycline 100 mg, 1 pill every 12 hours for 7 days Follow-up with your doctor in 2 days. Please return to the emergency department if your symptoms get worse or if you develop any symptoms that are concerning to you. Prescriptions: New acetaminophen [Tylenol Extra Strength] 500 mg tablet 1,000 mg PO Q6H PRN (Reason: fever or pain) Qty: 20 0RF ibuprofen 400 mg tablet 400 mg PO TID PRN (Reason: fever or pain) Qty: 30 0RF ondansetron 4 mg tablet,disintegrating 4 mg PO Q6-8H PRN (Reason: nausea and vomiting) Qty: 14 0RF doxycycline hyclate 100 mg tablet 100 mg PO Q12H 7 Days Qty: 14 0RF No Action hydralazine 100 mg tablet 100 mg PO TID 30 Days Qty: 90 5RF trazodone 50 mg tablet 100 mg PO BEDTIME escitalopram oxalate 10 mg tablet 10 mg PO DAILY atorvastatin 40 mg tablet 40 mg PO DAILY metoprolol succinate 100 mg tablet extended release 24 hr 100 mg PO DAILY magnesium oxide 400 mg (241.3 mg magnesium) Tablet 400 mg PO BIDPC Qty: 60 0RF fluticasone propion-salmeterol [Advair Diskus] 250-50 mcg/dose blister with device 1 ea inhalation BID amlodipine 5 mg tablet 10 mg PO DAILY omeprazole 40 mg capsule,delayed release(DR/EC) 40 mg PO DAILY@0630 fluticasone propionate 50 mcg/actuation Bruce,Suspension 1 spray intranasal BID Qty: 16 0RF sucralfate 1 gram tablet 1 g PO QID isosorbide mononitrate 30 mg tablet extended release 24 hr 30 mg PO DAILY losartan 25 mg tablet 25 mg PO DAILY torsemide 20 mg tablet 20 mg PO DAILY Qty: 90 0RF ferrous sulfate [iron] 325 mg (65 mg iron) tablet 325 mg PO DAILY Qty: 30 0RF albuterol sulfate 90 mcg/actuation HFA aerosol inhaler 2 puff inhalation Q4H PRN (Reason: bronchospasm) (DME) Omnipod 5 G6 Intro Kit (Gen 5) Cartridge SUBCUT insulin lispro 100 unit/mL solution 100 unit DIRECTED Rx Instructions: INJECT up to 100 UNITS DIRECTED SEE ADMIN INSTRUCTIONS. USE PER INSULIN PUMP nicotine 21 mg/24 hr Patch 24 Hour 21 mg transdermal DAILY Qty: 90 0RF amoxicillin-pot clavulanate [Augmentin] 500-125 mg tablet 1 tab PO BID Qty: 14 0RF aspirin 81 mg tablet,delayed release (DR/EC) 81 mg PO DAILY torsemide 40 mg tablet 40 mg PO BID Print Language: Nepalese
--- OUTSIDE RECORDS SUMMARY | 2025-03-20 13:16 | XMS_ITS | Clinical Summary ---
Author Organization [facility] Address [address] [place] [address] Care Team Providers Care Cupola Worker Name Role Phone Zari Henry MD Primary Care Provider [phone] Allergies Active Allergy Reactions Criticality Noted Date [...] age to complete this topic Care Teams Cupola Worker Relationship Specialty Start Date End Date Zari Henry MD PCP - General Internal Medicine 01/21/22
--- OUTSIDE RECORDS SUMMARY | 2025-03-20 13:16 | XMS_ITS | Clinical Summary ---
Author Organization [facility] ([employer]) Address [address] [address] Phone Care Team Providers Care Teacher Advisor Name Role Phone Zari Henry MD Primary [...] ations:Type 2 diabetes mellitus with diabetic nephropathy ([facility] V24, [facility] V28) INJECT 100 UNITS DIRECTED SEE [...] ations:Type 2 diabetes mellitus with diabetic nephropathy ([facility] V24, [facility] V28) INJECT 100 UNITS DIRECTED SEE ADMIN INSTRUCTIONS. USE PER INSULIN PUMP 30 mL 2 01/03/20 25 025 Discontinued(R eorder) Active Problems Problem Noted Date Diagnosed Date DM (diabetes mellitus), type 2 with peripheral vascular complications ([facility] V24, [facility] V28) 12/05/2024 MAGDA (iron deficiency anemia) 04/06/2023 Requires supplemental oxygen 04/06/2023 CHF (congestive heart failure) ([facility] V24, [facility] V28) 01/06/2023 Obstructive sleep apnea syndrome 05/09/2022 Adrenal mass ([facility] V24) 03/24/2022 Claudication of both lower extremities ([facility] V24) 12/27/2021 Sleep related hypoxia 08/17/2021 Overview (07/12/2024): On oxygen at nighttime Asthma-COPD overlap syndrome ([facility] V24, [facility] V28) 08/17/2021 Overview (12/11/2024): Microscopic hematuria 12/25/2020 Overview (11/29/2024): Normal renal ultrasound, referred to urology for further work-up Condyloma acuminata 11/18/2020 Overview (11/29/2024): Condyloma acuminata 11/19 penis PAD (peripheral artery disease) ([facility] V24) Overview (11/29/2024): With LLE angioplasty 01/2020 Polycythemia 06/04/2018 Anxiety 08/01/2017 Microalbuminuria 04/14/2017 Depression 01/31/2017 HTN (hypertension), benign 01/31/2017 Hyperlipidemia 01/31/2017 Resolved Problems Problem Noted Date Diagnosed Date Resolved Date Type 2 diabetes mellitus ( S/[facility] V24, [facility] V28) 01/31/2017 12/05/2024 Encounters Date Type Department Care Team Description 03/18/[address] [phone] Lea Alex PA PROVIDER CALL BACK 03/10/2025 4:40 PM EDT Office Visit [address] [phone] Lea Alex PA DM (diabetes mellitus), type 2 with peripheral vascular complications ([facility] V24, [facility] V28) (Primary Dx); HTN (hypertension), benign 03/05/2025 Nurse Triage Adult Medicine [address] [phone] Zari Henry MD Fall 02/18/[address] [phone] Lea Alex PA Med Refill 02/17/2025 Billing Patient Not Present Adult Medicine [address] [phone] Zari Henry MD 02/14/2025 Billing Patient Not Present Adult Medicine [address] [phone] Zari Henry MD 02/14/2025 Telephone Adult Medicine [address] [phone] Zari Henry MD faxed order ([facility] health cert 02/13/25/Cert period 12/03/24 through 01/31/25) 02/06/2025 1:30 PM EDT Office Visit Adult Medicine [address] [phone] Zari Henry MD Acute on chronic right-sided congestive heart failure (CMS/HCC V24, CMS/HCC V28) (Primary Dx); HTN (hypertension), benign; Iron deficiency anemia, unspecified iron deficiency anemia type; Other hyperlipidemia; DM (diabetes mellitus), type 2 with peripheral vascular complications (CMS/HCC V24, CMS/HCC V28) 02/06/2025 Telephone Adult Medicine [address] [phone] Zari Henry MD vna 02/06/2025 Billing Patient Not Present Adult Medicine [address] [phone] Zari Henry MD 01/31/2025 Telephone Adult Medicine [address] [phone] Zari Henry MD vna 01/30/2025 Billing Patient Not Present Adult Medicine [address] [phone] Zari Henry MD 01/23/2025 Telephone Adult Medicine [address] [phone] Zari Henry MD Hospital Follow-up 01/23/[address] [phone] Tonya Patel, CARLITOS 01/17/[address] [phone] Zari Henry MD Hospital Follow-up 01/17/[address] [phone] Zari Henry MD vna 01/13/[address] [phone] Debbie Pavon MA Request For Order(s) 01/10/[address] [phone] Tanesha Estrada, RN Faxed Order ([facility] Med Orders dated 12/31/24) 01/09/2025 Billing Patient Not Present [address] [phone] Zari Henry MD 01/08/[address] [phone] Tanesha Estrada, RN Faxed Order ([facility] Resumption of Care orders 12/17/24 and 12/25/24) 01/02/[address] [phone] Zari Henry MD VNA Call 12/24/2024 10:30 AM EST Office Visit [address] [phone] Zari Henry MD Acute on chronic respiratory failure with hypoxia (CMS/HCC V24, CMS/HCC V28) (Primary Dx); DM (diabetes mellitus), type 2 with peripheral vascular complications (CMS/HCC V24, CMS/HCC V28); HTN (hypertension), benign; Acute on chronic right-sided congestive heart failure ([facility] V24, [facility] V28); PAD (peripheral artery disease) ([facility] V24); KELVIN (acute kidney injury) ([facility] V24) 12/24/2024 Telephone Adult Medicine [address] [phone] Ashleigh Verdugo ID Forms/questionnaires ([employer]) from Last 3 Months Immunizations Name Administration [...] (diabetes mellitus), type 2 with renal complications ([facility] V24, [facility] V28) 01/31/2017 Microalbuminuria 04/14/2017 Polycythemia 06/04/2018 Condyloma acuminata 11/18/2020 Condyloma ac uminata 11/19 penis YARELIS (obstructive sleep apnea) 05/09/2022 CHF (congestive heart failur e) ([facility] V24, [facility] V28) 01/06/2023 DM (diabetes mellitus), type 2 with peripheral vascular complications ([facility] V24, [facility] V28) 12/05/2024 Family History Medical History Relation [...] Care Team (Late st Contact Info) Description 04/23/2025 3:30 PM EDT Office Visit Adult Medicine [facility] [address] [place], [place] [phone] Zari Henry MD [address] 06/10/2025 12:00 PM EDT Office Visit Nephrology [facility] [address] [place] [address] Jong Hall MD [address] [phone] Health Maintenance Due Date Last Done Comments [...] V24, CMS/HCC V28) HOME HEALTH ORDER 01/18/2025 from Last 3 Months Results * (ABNORMAL) CBC auto differential (02/06/2025 2:04 PM EDT) WBC 14.4(H) 4.8 - 10.8 K/mcL LAB HEMETOLOGY METHOD 02/06/2025 5:06 PM EDT [facility] RBC 5.60(H) 4.50 - 5.50 M/mcL LAB HEMETOLOGY METHOD 02/06/2025 5:06 PM EDT [facility] Hemoglobin 12.3(L) 13.5 - 17.5 g/dL LAB HEMETOLOGY METHOD 02/06/2025 5:06 PM EDT [facility] Hematocrit 41.3(L) 42.0 - 54.0 % LAB HEMETOLOGY METHOD 02/06/2025 5:06 PM [facility] MCV 73.9(L) 79.0 - 98.0 FL LAB HEMETOLOGY METHOD 02/06/2025 5:06 PM [facility] MCH 22.0(L) 27.0 - 32.0 pcg LAB HEMETOLOGY METHOD 02/06/2025 5:06 PM [facility] MCHC 29.8(L) 32.0 - 37.0 g/dL LAB HEMETOLOGY METHOD 02/06/2025 5:06 PM [facility] RDW 21.9(H) 11.0 - 15.0 % LAB HEMETOLOGY METHOD 02/06/2025 5:06 PM [facility] Platelets 407(H) 130 - 400 K/mcL LAB HEMETOLOGY METHOD 02/06/2025 5:06 PM [facility] MPV 11.1(H) 7.0 - 11.0 FL LAB HEMETOLOGY METHOD 02/06/2025 5:06 PM [facility] NRBC 0.0 <1.0 % LAB HEMETOLOGY METHOD 02/06/2025 5:06 PM [facility] NRBC Absolute 0.00 <0.10 K/mcL LAB HEMETOLOGY METHOD 02/06/2025 5:06 PM [facility] Neutrophils Relative 81.5 % LAB HEMETOLOGY METHOD 02/06/2025 5:06 PM [facility] Lymphocytes Relative 8.0 % LAB HEMETOLOGY METHOD 02/06/2025 5:06 PM [facility] Monocytes Relative 9.2 % LAB HEMETOLOGY METHOD 02/06/2025 5:06 PM [facility] Eosinophils Relative 0.3 % LAB HEMETOLOGY METHOD 02/06/2025 5:06 PM EDT [facility] Basophils Relative 0.6 % LAB HEMETOLOGY METHOD 02/06/2025 5:06 PM [facility] Immature Granulocytes Relative 0.4 % LAB HEMETOLOGY METHOD 02/06/2025 5:06 PM EDT [facility] Neutrophils Absolute 11.77(H) 1.50 - 7.00 K/mcL LAB HEMETOLOGY METHOD 02/06/2025 5:06 PM EDT [facility] Lymphocytes Absolute 1.16 1.00 - 5.00 K/mcL LAB HEMETOLOGY METHOD 02/06/2025 5:06 PM EDT [facility] Monocytes Absolute 1.33(H) 0.20 - 1.00 K/mcL LAB HEMETOLOGY METHOD 02/06/2025 5:06 PM EDT [facility] Eosinophils Absolute 0.04 0.00 - 0.50 K/mcL LAB HEMETOLOGY METHOD 02/06/2025 5:06 PM EDT [facility] Basophils Absolute 0.08 0.00 - 0.20 K/mcL LAB HEMETOLOGY METHOD 02/06/2025 5:06 PM EDT [facility] Immature Granulocytes Absolute 0.06(H) 0.00 - 0.03 K/mcL LAB HEMETOLOGY METHOD 02/06/2025 5:06 PM T [facility] Blood Venous blood specimen / Unknown Venipuncture / Unknown 02/06/2025 2:04 PM EDT 02/06/2025 2:04 PM EDT us Zari Henry MD LAB BLOOD ORDERABLES Final Resul t [facility] [address] [place] [address], * (ABNORMAL) Hemoglobin A1c (02/06/2025 2:04 PM EDT) Pathologist [facility] Hemoglobin A1C 8.1(H) <6.5 % LAB CHEMISTRY METHOD 02/07/2025 11:06 AM [facility] Mean Bld Glu Estim. 186 mg/dL LAB CHEMISTRY METHOD 02/07/2025 11:06 AM [facility] Blood Venous blood specimen / Unknown Venipuncture / Unknown 02/06/2025 2:04 PM EDT 02/06/2025 2:04 PM EDT us Zari Henry MD LAB BLOOD ORDERABLES Final Resul t [facility] [address] [place] [address], [place] [phone] * (ABNORMAL) Basic metabolic panel (02/06/2025 2:04 PM EDT) [facility] Sodium 136 133 - 145 mmol/L LAB CHEMISTRY METHOD 02/06/2025 5:07 PM [facility] Potassium 4.2 3.5 - 5.5 mmol/L LAB CHEMISTRY METHOD 02/06/2025 5:07 PM [facility] Chloride 99 96 - 110 mmol/L LAB CHEMISTRY METHOD 02/06/2025 5:07 PM [facility] CO2 28 21 - 32 mmol/L LAB CHEMISTRY METHOD 02/06/2025 5:07 PM [facility] Anion Gap 9 3 - 11 LAB CHEMISTRY METHOD 02/06/2025 5:07 PM [facility] Glucose 317(H) 70 - 100 mg/dL LAB CHEMISTRY METHOD 02/06/2025 5:07 PM [facility] BUN 25 5 - 25 mg/dL LAB CHEMISTRY METHOD 02/06/2025 5:07 PM EDT [facility] Creatinine 1.91(H) 0.70 - 1.30 mg/dL LAB CHEMISTRY METHOD 02/06/2025 5:07 PM EDT [facility] eGFR 42(L) >=60 mL/min/1. 73m2 LAB CHEMISTRY METHOD 02/06/2025 5:07 PM EDT [facility] Comment:Calculation based on the??Chronic Kidney Disease Epidemiology Collaboration (CKD-EPI) equation refit??without adjustment for race. BUN/Creatinine Ratio 13.1 LAB CHEMISTRY METHOD 02/06/2025 5:07 PM EDT [facility] Calcium 9.5 8.5 - 10.5 mg/dL LAB CHEMISTRY METHOD 02/06/2025 5:07 PM EDT [facility] Blood Venous blood specimen / Unknown Venipuncture / Unknown 02/06/2025 2:04 PM EDT 02/06/2025 2:04 PM EDT Zari Henry MD LAB BLOOD ORDERABLES Final Resul t [facility] [address] [place] [address], * Home Health Order (01/18/2025) Provider [facility] Taylor l Result from Last 3 Months Insurance [facility] [employer] Care Teams Teacher Advisor Relationship Specialty Start Date End Date Zari Henry MD [address] [place] [address] PCP - General Internal Medicine 08/17/21
--- OUTSIDE RECORDS SUMMARY | 2025-03-20 13:16 | XMS_ITS | Clinical Summary ---
Author Organization [facility] Address [address] [address] Phone Care Team Providers Care Buffet Manager Name Role Phone Zari Henry MD Primary Care Provider [phone] Allergies Active Allergy Reactions Criticality Noted Date [...] Office Visit [facility] [address] [phone] Jong Hall MD [address] [phone] Health Maintenance Due Date Last Done Comments Hepatitis B Vaccine (1 of 3 - 19+ 3-dose series) 1993 Pneumococcal Vaccine: 50+ Ye ars (2 of 2 - PPSV23, PCV20, or PCV21) 12/03/2019 10/08/2019 Diabetes: Ophthalmology Exam 12/30/2022 Diabetes: [...] 07/22/2022, Additional history exists Insurance Care Teams Buffet Manager Relationship Specialty Start Date End Date Zari Henry MD [address] [place] [id number] PCP - General Internal Medicine 12/09/24
--- OUTSIDE RECORDS SUMMARY | 2025-03-20 13:16 | XMS_ITS | Encounter Summary ---
Author Organization [facility] Address [address] [place] [address] Care Team Providers Care Mortgage Coordinator Name Role Phone Zari Henry MD Primary Care Provider [phone] Reason for Visit * Reason Onset Date Comments PROVIDER CALL BACK 03/18/2025 Encounter Details Date Type Department Care Team (Late st Contact Info) Description 03/18/[address] [facility] [address] [place] [phone] Lea Alex PA [address] [place] [address] PROVIDER CALL BACK Social History Tobacco Use Types Packs/Day Years [...] Progress Notes * Christi Morales RN - 03/18/2025 10:15 AM EDT Called and spoke with patient Message from provider read He verbalizes understanding * SACHI Antony - 03/18/2025 10:06 AM EDT Please asked patient to crosscheck with fingerstick to confirm glucose levels. CGM can show falsely low or high readings. I would like to have patient have 3 meals a day and regular intervals, high in protein, low in carbohydrates to better regulate glucose levels. If he continues to experience low or high sugars in thenext 2 to 3 days, I would like him to call us back. In the meantime, please discuss treatment of hypoglycemia and stressed the importance of eating and regular intervals. * Christi Morales RN - 03/18/2025 9:57 AM EDT Called and spoke with patient GABRIELLE 03/10/25 7 day average 173 FBS at 5 am today 65- ASX - did not cross check with finger stick, ate cereal and juice 7 am BS HI- bolused self 9:45 am BS 283 Pt has two episodes of hypoglycemia in the last week Pt is bolusing hyperglycemia after eating Please advise * Pooja East - 03/18/2025 8:50 AM EDT Pt calling this morning to report that he has been having trouble with his glucose. He says it goeshigh and then drop low, he will eat something and then it will go high again. He says it was happening for about 2 days now. Please advise ? [phone] documented in this encounter Plan of Treatment Upcoming Encounters Date Type Department Care Team (Late st Contact Info) Description 04/23/2025 3:30 PM EDT Office Visit [address] [phone] Zari Henry MD [address] [place] [address] 06/10/2025 12:00 PM EDT Office Visit Nephrology - [address] [place] [address] Jong Hall MD [address] [phone] documented as of this encounter Visit Diagnoses Not on filedocumented in this encounter Care Teams Mortgage Coordinator Relationship Specialty Start Date End Date Zari Henry MD [address] [place] [address] PCP - General Internal Medicine 08/17/21 documented as of this encounter
--- OUTSIDE RECORDS SUMMARY | 2025-03-20 13:16 | XMS_ITS | Encounter Summary ---
Author Organization [facility] Address [address] [place] [address] Care Team Providers Care Android Framework Developer Name Role Phone Zari Henry MD Primary Care Provider Encounter Details Date Type Department Care Team (Late Contact Info) Description 01/09/2025 Billing Patient Not Present Adult Medicine [address] [phone] Zari Henry MD [address] [place] [address] Social History Tobacco Use Types Packs/Day Years [...] Department Care Team (Late Contact Info) Description 04/23/2025 3:30 PM EDT Office Visit Adult Medicine [address] [phone] Zari Henry MD [address] [place] [address] 06/10/2025 12:00 PM EDT Office Visit Nephrology - [address] [place] [phone] Jong Hall MD [address] [phone] documented as of this encounter Visit Diagnoses Not on filedocumented in this encounter Care Teams Android Framework Developer Relationship Specialty Start Date End Date Zari Henry MD [address] [place] [address] PCP - General Internal Medicine 08/17/21 documented as of this encounter
--- OUTSIDE RECORDS SUMMARY | 2025-03-20 13:16 | XMS_ITS | Encounter Summary ---
Author Organization [facility] Address [address] [place] [address] Care Team Providers Care Refrigeration Lead Name Role Phone Zari Henry MD Primary Care Provider [phone] Encounter Details Date Type Department Care Team (Late Contact Info) Description 02/14/2025 Billing Patient Not Present Adult Medicine [address] [phone] Zari Henry MD [address] [place] [address] Social History Tobacco Use Types Packs/Day Years [...] 3:30 PM EDT Office Visit Adult Medicine [address] [phone] Zari Henry MD [address] [place] [address] 06/10/2025 12:00 PM EDT Office Visit Nephrology - [address] [place] [phone] Jong Hall MD [address] [phone] documented as of this encounter Visit Diagnoses Not on filedocumented in this encounter Care Teams Refrigeration Lead Relationship Specialty Start Date End Date Zari Henry MD [address] [place] [address] PCP - General Internal Medicine 08/17/21 documented as of this encounter
--- OUTSIDE RECORDS SUMMARY | 2025-03-20 13:16 | XMS_ITS | Encounter Summary ---
Author Organization [facility] Address [address] [place] [address] Care Team Providers Care Veterinary Parasitologist Name Role Phone Zari Henry MD Primary Care Provider [phone] Encounter Details Date Type Department Care Team (Late Contact Info) Description 01/30/2025 Billing Patient Not Present Adult Medicine [address] [phone] Zari Henry MD [address] [place] [address] Social History Tobacco Use Types Packs/Day Years [...] 3:30 PM EDT Office Visit Adult Medicine [address] [phone] Zari Henry MD [address] [place] [address] 06/10/2025 12:00 PM EDT Office Visit Nephrology - [address] [place] [phone] Jong Hall MD [address] [phone] documented as of this encounter Visit Diagnoses Not on filedocumented in this encounter Care Teams Veterinary Parasitologist Relationship Specialty Start Date End Date Zari Henry MD [address] [place] [address] PCP - General Internal Medicine 08/17/21 documented as of this encounter
[2025-03-20] MEDS: Ketorolac Tromethamine 15 MG/ML VIAL IVPUSH (13:46)
[2025-03-20] MEDS: ondansetron HCL 4 MG/2 ML VIAL IVPUSH ×2 (13:49→15:48)
[2025-03-20] MEDS: Magnesium Sulfate/H2O 2 GM/50 ML PIGGYBACK IV (13:51)
[2025-03-20] MEDS: 0.9 % Sodium Chloride 1,000 ML 999 ML IV (13:52)
[2025-03-20 14:07] VITALS: BP 166/85; PULSE 81; RESP 12; TEMP 36.9; O2SAT 100
[2025-03-20 15:21] LABS: Glucose, Whole Blood 280 mg/dL (60-115)
[2025-03-20] MEDS: Doxycycline Monohydrate 100 MG CAPSULE PO (15:48)
[2025-03-20] MEDS: Morphine Sulfate 4 MG/ML CARTRIDGE IVPUSH ×2 (15:49→17:27)
[2025-03-20 15:52] VITALS: BP 182/92; PULSE 84; RESP 12; TEMP 37; O2SAT 100
[2025-03-20 17:30] VITALS: BP 173/86; PULSE 78; RESP 16; O2SAT 100
--- NOTE | 2025-03-20 17:31 | PC.NURSE ---
Pt. continues to c/o generalized pain, provider aware, see emar for meds ordered, VSS. Plan for additional dose of IV morphine and DC home in place. Pt's GF to transport home.
[2025-03-20 17:57] VITALS: BP 170/80; PULSE 78; RESP 16; TEMP 37.1; O2SAT 100
== END 2025-03-20 18:06 | disposition home or self-care (01) ==
PROVIDERS: Emergency Provider Emergency Medicine Emergency Medical Services; PCP Internal Medicine
DX: J20.9 Acute bronchitis, unspecified (principal); M94.0 Chondrocostal junction syndrome [Tietze]; R11.2 Nausea with vomiting, unspecified; F17.210 Nicotine dependence, cigarettes, uncomplicated; R06.02 Shortness of breath; R05.9 Cough, unspecified; E11.22 Type 2 diabetes mellitus with diabetic chronic kidney disease; I13.0 Hypertensive heart and chronic kidney disease with heart failure and stage 1 through stage 4 chronic kidney disease, or unspecified chronic kidney disease; N18.1 Chronic kidney disease, stage 1; I50.33 Acute on chronic diastolic (congestive) heart failure; Z03.818 Encounter for observation for suspected exposure to other biological agents ruled out; Z96.41 Presence of insulin pump (external) (internal); Z79.4 Long term (current) use of insulin; Z79.899 Other long term (current) drug therapy; Z79.82 Long term (current) use of aspirin; Z79.02 Long term (current) use of antithrombotics/antiplatelets
CPT/HCPCS: 0241U; 36415; 71046; 80053; 81001; 81003; 82947; 83735; 83880; 84484; 85025; 93005; 96365; 96366; 96375; 96376; 99285; J1885; J2270; J2405; J3475

== ENCOUNTER → 2025-03-20 12:02 | Outpatient (BNV) | payer OTHER, SELFPAY | PROVIDERS: Emergency Provider Emergency Medicine Emergency Medical Services; PCP Internal Medicine; Visit Provider Internal Medicine Cardiovascular Disease | DX: R07.9 Chest pain, unspecified (principal) | CPT/HCPCS: 93010 ==

== ENCOUNTER → 2025-03-20 13:25 | Outpatient (BNV) | payer OTHER, SELFPAY | PROVIDERS: Emergency Provider Emergency Medicine Emergency Medical Services; PCP Internal Medicine; Visit Provider Radiology Diagnostic Radiology | DX: R05.9 Cough, unspecified (principal); R07.9 Chest pain, unspecified; R11.2 Nausea with vomiting, unspecified; R19.7 Diarrhea, unspecified | CPT/HCPCS: 71046 ==

== ENCOUNTER 2025-03-21 12:43 | Emergency (ER) | payer OTHER, SELFPAY ==
--- NOTE | ~2025-03-21 | XR_ITS ---
EXAMINATION: XR CHEST CLINICAL INFORMATION: weakness COMPARISON: Prior day. TECHNIQUE: 2 views of the chest were obtained. FINDINGS: The cardiac, hilar, and mediastinal contours are normal. The lungs are clear bilaterally. There is no pneumothorax or pleural effusion. There is no focal osseous or soft tissue abnormality. There are spinal degenerative changes. XR/XR chest 2V IMPRESSION: No active pulmonary disease. No significant interval change. Electronically signed by: Bony Ta MD 03/21/2025 01:46 PM EDT
[2025-03-21 12:50] VITALS: BP 136/80; PULSE 86; O2SAT 100
[2025-03-21 12:51] VITALS: BP 164/77; PULSE 74; RESP 20; TEMP 36.9; O2SAT 99; BMI 23.5
--- NOTE | 2025-03-21 13:08 | ECG_ITS ---
Test Reason : weakness Blood Pressure : */* mmHG Vent. Rate : 78 BPM Atrial Rate : 78 BPM P-R Int : 138 ms QRS Dur : 72 ms QT Int : 390 ms P-R-T Axes : 39 41 61 degrees QTcB Int : 444 ms Normal sinus rhythm Normal ECG When compared with ECG of 20-Mar-2025 12:04, No significant change was found Referred By: Jillian Downey Electronically Signed By: Sadiq Rivera
[2025-03-21 13:30] LABS: MANUAL DIFF FLAG NO
[2025-03-21 13:30] LABS: Glucose, Whole Blood 285 mg/dL (60-115)
[2025-03-21 13:31] LABS: Basophils Percent Auto 0.3 % (0-2); Eosinophils Percent Auto 0.2 % (0-4); Hematocrit 34.9 % (42.0-52.0); Hemoglobin 11.4 g/dl (14.0-18.0); Imm Gran Abs Auto 0.05 X10*3/uL (0.00-0.03); Imm Gran Pct Auto 0.5 % (0.0-0.4); Lymphocytes Absolute Auto 0.8 X10*3/uL (1.2-4.9); Lymphocytes Percent Auto 7.6 % (20-40); Mean Corpuscular HGB Conc 32.7 g/dl (31.0-36.0); Mean Corpuscular Hemoglobin 23.4 pg (27.0-33.0); Mean Corpuscular Volume 71.7 fL (80.0-98.0); Mean Platelet Volume 8.9 fL (9.4-12.4); Monocytes Absolute Auto 0.7 X10*3/uL (0.1-1.2); Monocytes Percent Auto 6.8 % (2-11); Neutrophils Absolute Auto 8.6 x10*3/uL (2.0-8.3); Neutrophils Percent Auto 84.6 % (45-73); Platelet Count 240 X10*3/uL (160-400); Red Blood Count 4.87 X10*6/uL (4.60-5.80); Red Cell Distribution Width 24.7 % (11.0-16.0); White Blood Count 10.1 X10*3/uL (4.8-10.8)
[2025-03-21 13:47] LABS: Alanine Aminotransferase 21 U/L (0-40); Albumin Level 3.4 g/dL (3.5-5.0); Alkaline Phosphatase 94 U/L (39-117); Anion Gap 15 (12-20); Aspartate Amino Transferase 39 U/L (5-37); Bilirubin Total 0.5 mg/dL (0.0-1.0); Blood Urea Nitrogen 14 mg/dL (9-16); Calcium 8.4 mg/dL (8.4-10.2); Carbon Dioxide 23 mmol/L (22-29); Chloride 108 mmol/L (96-108); Creatinine Clr Calc Pharmacy 62.5; Estimated Glomerular Filt Rate > 60; Glucose Random 313 mg/dL (60-115); Magnesium 1.6 mg/dL (1.6-2.6); Potassium 3.5 mmol/L (3.3-5.1); Sodium 142 mmol/L (135-145); Total Protein 6.2 g/dL (6.5-8.0)
[2025-03-21 13:52] LABS: B Type Natriuretic Peptide 574 pg/mL (<100)
[2025-03-21 13:54] LABS: Troponin-I High Sensitivity < 2.7 ng/L (<3.5-35.0)
--- NOTE | 2025-03-21 14:15 | ED_ITS ---
HPI - General Adult General Chief complaint: General Medical Stated complaint: SOB COUGH Time Seen by Provider: 03/21/25 13:04 Source: patient and EMS Mode of arrival: EMS Limitations: no limitations History of Present Illness ED Provider: JILLIAN DOWNEY PA-C HPI narrative: 49-year-old male with pmhx significant for KELVIN, CHF, HTN, depression, COPD, YARELIS, HDL, DM, PAD presents to the ED today for evaluation of chills and generalized weakness since yesterday. Patient was evaluated at our facility yesterday for chest pain, shortness breath, dry cough, nausea, vomiting and diarrhea. He was diagnosed with bronchitis and discharged home with a Zofran, doxycycline, Motrin and Tylenol. States he did not pick these medications up from his pharmacy. He returns to the ED today with continued symptoms including chills and generalized weakness. No significant change from yesterday. He states he decided to call EMS for transport back to ED. Related Data Home Medications ?Medication ?Instructions ?Recorded ?Confirmed escitalopram oxalate 10 mg tablet 10 mg PO DAILY 08/01/22 03/14/25 trazodone 50 mg tablet 100 mg PO BEDTIME 08/01/22 03/14/25 aspirin 81 mg tablet,delayed 81 mg PO DAILY 10/06/22 03/14/25 release atorvastatin 40 mg tablet 40 mg PO DAILY 10/06/22 03/14/25 metoprolol succinate 100 mg 100 mg PO DAILY 10/06/22 03/14/25 tablet,extended release 24 hr fluticasone 250 mcg-salmeterol 50 1 ea inhalation BID 12/22/23 03/14/25 mcg/dose blistr powdr for inhalation (Advair Diskus) albuterol sulfate 90 mcg/actuation 2 puff inhalation Q4H PRN 04/26/24 03/14/25 aerosol inhaler bronchospasm amlodipine 5 mg tablet 10 mg PO DAILY 06/02/24 03/14/25 insulin pump cartridge,automated 06/11/24 03/14/25 dose,BT with controller subcutaneous (Omnipod 5 G6 Intro Kit (Gen 5) subcutaneous cartridge with controller) omeprazole 40 mg capsule,delayed 40 mg PO DAILY@0630 07/15/24 03/14/25 release insulin lispro 100 unit/mL 100 unit DIRECTED 11/19/24 03/14/25 subcutaneous solution torsemide 40 mg tablet 40 mg PO BID 12/20/24 03/14/25 isosorbide mononitrate 30 mg 30 mg PO DAILY 01/14/25 03/14/25 tablet,extended release 24 hr losartan 25 mg tablet 25 mg PO DAILY 01/14/25 03/14/25 sucralfate 1 gram tablet 1 g PO QID 01/14/25 03/14/25 Previous Rx's ?Medication ?Instructions ?Recorded magnesium oxide 400 mg (241.3 mg 400 mg PO BIDPC #60 tabs 08/20/22 magnesium) tablet hydralazine 100 mg tablet 100 mg PO TID 30 days #90 tabs 05/09/23 fluticasone propionate 50 1 spray intranasal BID #16 grams 07/19/24 mcg/actuation nasal spray,suspension nicotine 21 mg/24 hr daily 21 mg transdermal DAILY #90 ea 11/26/24 transdermal patch ferrous sulfate 325 mg (65 mg 325 mg PO DAILY #30 tabs 01/15/25 iron) tablet (iron) torsemide 20 mg tablet 20 mg PO DAILY #90 tabs 01/15/25 amoxicillin 500 mg-potassium 1 tab PO BID #14 tabs 02/16/25 clavulanate 125 mg tablet (Augmentin) acetaminophen 500 mg tablet 1,000 mg (2 x 500 mg) PO Q6H PRN 03/20/25 (Tylenol Extra Strength) fever or pain #20 tabs doxycycline hyclate 100 mg tablet 100 mg PO Q12H 7 days #14 tabs 03/20/25 ibuprofen 400 mg tablet 400 mg PO TID PRN fever or pain 03/20/25 #30 tabs morphine 15 mg immediate release 15 mg PO Q8H PRN pain #10 tabs 03/20/25 tablet ondansetron 4 mg disintegrating 4 mg PO Q6-8H PRN nausea and 03/20/25 tablet vomiting #14 tabs Allergies Allergy/AdvReac Type Severity Reaction Status Date / Time dulaglutide [From [facility]] Allergy Unknown Verified 03/21/25 13:00 metformin [METFORMIN] AdvReac Mild DIARRHEA, Verified 03/21/25 13:00 nausea and vomiting Review of Systems 2 Review of Systems: Yes all other systems are reviewed and are negative PMFSH Past Medical History Attestation statement: The following information was validated with the patient. Source: old records reviewed and nursing notes reviewed Medical History Tobacco use CKD (chronic kidney disease) stage 1, GFR 90 ml/min or greater YARELIS (obstructive sleep apnea) Acute on chronic diastolic (congestive) heart failure KELVIN (acute kidney injury) Chronic heart failure with preserved ejection fraction (HFpEF) Depression Acute on chronic anemia Anxiety HLD (hyperlipidemia) Diabetes HTN (hypertension) Asthma PAD (peripheral artery disease) Surgical History History of esophagogastroduodenoscopy S/P angiogram of extremity Family History Family History Father Alzheimer disease CAD (coronary artery disease) Social History Social History Household Members: None Household Members Other:: 4 Housing: Apartment Do you presently have visiting nurse or other home services: Yes Unable to assess alcohol history related to: Unknown Alcohol intake: current Alcohol intake frequency: holidays/special occasions only Alcohol type: hard liquor Comment: pt is independent in room Patient Tobacco Use Status: Current everyday Tobacco user Tobacco use type: Cigarette Cigarette Packs Per Day: 1 Cigarettes Per Day: 20.0 Years Smoked: 35 e-Cigarette/Vaping Use: Never Used Second Hand Smoke Exposure: No Substance Use Type: Marijuana Advance Directives: Yes Advance Directives on File: Yes Advance Directives Date on File: 06/21/21 service: No Current occupational status: disabled Physical Exam ED Vital Signs: Vital Signs - 24 hr 03/21/25 12:51 Temperature 98.5 F Pulse Rate 74 Respiratory Rate 20 Blood Pressure 164/77 H Pulse Oximetry 99 Oxygen Delivery Method Room Air BMI result Body Mass Index 23.5 hypertensive, afebrile, not hypoxic General: well appearing, in no acute distress. Skin: Warm, dry, intact. No rashes or lesions. Head: Normocephalic, atraumatic. EENT: Hearing is intact b/l. Conjunctiva clear. PERRLA. EOM intact. Moist mucous membranes.? Neck: Supple without LAD Cardiac: Chest wall symmetric. RRR Lungs: Normal respiratory effort without accessory muscle use. CTA bilaterally. No rales, rhonchi, or wheezes.? Abdomen: Soft, non-tender, non-distended. No rebound tenderness or guarding. Positive BS x4. Back: No midline spinous or paraspinal tenderness. No step off deformity. Ext: Upper and lower extremities atraumatic, without tenderness, deformity, swelling or erythema. no pitting edema, no calf tenderness Neuro: AOx3. Normal speech. NIH 0. strength 5/5 throughout. Ambulating with steady gait. Course Course Course Narrative: CBC without leukocytosis. microcytic anemia, h&h stable when compared to priors. Chemistry without acute electrolyte abnormality requiring intervention. glucose 313, no anion gap. BNP 574. Troponin undetectable. Negative covid/ flu/ rsv.? Cxr without edema, effusion or infiltrate/ consolidation. EKG showing NSR without acute ischemic changes or st elevations. UA without infection. > patient is sustaining 99% on room air during ambulatory O2 trial. Does not endorse feeling short of breath. > treated w/ toradol, doxy, and zofran > spoke w/ SACHI Ashton about possible admission. Patient?s labs are improved when compared to priors. He does not meet criteria for admission at this time. Poli recommends outpatient treatment including patient picking up scripts that were sent to his pharmacy yesterday. As patient?s work up is reassuring and labs have remained stable, I feel this is reasonable.?discussed work up/ dispotision with patient. > ordered bumex for elevated BNP. patient declining at this time. > Patient has remained stable throughout ED visit today. Discussed worrisome signs and symptoms and when to return to the ED. All questions answered at this time. Patient is agreeable with disposition and stable for discharge. Medications Administered Discontinued Medications Generic Name Dose Route Start Last Admin Trade Name Freq PRN Reason Stop Dose Admin Bumetanide 0.5 mg 03/21/25 17:29 03/21/25 17:46 Bumetanide 1 Mg/4 Ml Vial IVPUSH 03/21/25 17:30 0.5 mg ONCE ONE Administration Protocol Doxycycline Hyclate 100 mg/ 250 mls @ 166.67 mls/hr 03/21/25 14:44 03/21/25 15:52 Sodium Chloride IV 03/21/25 16:13 166.67 mls/hr ONCE ONE Administration Ketorolac Tromethamine 30 mg 05/23/25 14:44 03/21/25 15:51 Ketorolac Tromethamine 30 Mg/Ml Vial IVPUSH 03/21/25 14:45 30 mg ONCE ONE Administration Ondansetron HCl 4 mg 03/21/25 14:45 03/21/25 15:52 Ondansetron Hcl 4 Mg/2 Ml Vial IVPUSH 03/21/25 14:46 4 mg ONCE ONE Administration Medical Decision Making Medical Decision Making [facility] Narrative: 49-year-old male with pmhx significant for KELVIN, CHF, HTN, depression, COPD, YARELIS, HDL, DM, PAD presents to the ED today for evaluation of chills and generalized weakness since yesterday. Hypertensive, vitals otherwise WNL. Satting 100% on room air. Afebrile. Differential diagnosis includes anemia, electrolyte abnormality, dehydration, hypoglycemia, hyperglycemia, DKA, bronchitis, pneumonia Plan for labs, EKG, chest x-ray, re-evaluation. Differential Diagnosis Differential Diagnoses: The differential diagnosis associated with the presentation includes as above. Admission/Observation Considered admission. I spoke with hospitalist SACHI ashton who has reviewed the case - patient does not meet criteria for admission at this time. recommending discharge home, patient advised to actually mushroom picker his medications at the pharmacy. can be treated outpatient. Consult Healthcare Provider Management of the patient was discussed with: Hospitalist (poli kang) Lab Data [facility] Lab Attestation statement: I reviewed the patient's lab results. as above 03/21/25 13:25 03/21/25 13:25 Labs: Lab Results 03/21/25 03/21/25 03/21/25 Range/Units 13:14 13:25 13:44 WBC 10.1 (4.8-10.8) X10*3/uL RBC 4.87 (4.60-5.80) X10*6/uL Hgb 11.4 L (14.0-18.0) g/dl Hct 34.9 L (42.0-52.0) % MCV 71.7 L (80.0-98.0) fL MCH 23.4 L (27.0-33.0) pg MCHC 32.7 (31.0-36.0) g/dl RDW 24.7 H (11.0-16.0) % Plt Count 240 (160-400) X10*3/uL MPV 8.9 L (9.4-12.4) fL Immature Gran % (Auto) 0.5 H (0.0-0.4) % Neut % (Auto) 84.6 H (45-73) % Lymph % (Auto) 7.6 L (20-40) % Frederick % (Auto) 6.8 (2-11) % Eos % (Auto) 0.2 (0-4) % Baso % (Auto) 0.3 (0-2) % Lymph # (Auto) 0.8 L (1.2-4.9) X10*3/uL Frederick # (Auto) 0.7 (0.1-1.2) X10*3/uL Eos # (Auto) 0.0 (0.0-0.4) X10*3/uL Baso # (Auto) 0.0 (0.0-0.2) X10*3/uL Abs Immat Gran (auto) 0.05 H (0.00-0.03) X10*3/uL Absolute Neuts (auto) 8.6 H (2.0-8.3) x10*3/uL Absolute Nucleated RBC 0.000 (0.0-0.012) X10*3/uL Nucleated RBC % (auto) 0.0 (0.0-0.2) /100WBC Sodium 142 (135-145) mmol/L Potassium 3.5 (3.3-5.1) mmol/L Chloride 108 (96-108) mmol/L Carbon Dioxide 23 (22-29) mmol/L Anion Gap 15 (12-20) BUN 14 (9-16) mg/dL Creatinine 1.23 (0.5-1.4) mg/dL Estim Creat Clear Calc 62.5 Estimated GFR > 60 POC Glucose 285 H (60-115) mg/dL Random Glucose 313 H (60-115) mg/dL Calcium 8.4 (8.4-10.2) mg/dL Magnesium 1.6 (1.6-2.6) mg/dL Total Bilirubin 0.5 (0.0-1.0) mg/dL AST 39 H (5-37) U/L ALT 21 (0-40) U/L Alkaline Phosphatase 94 (39-117) U/L Troponin I High Sens < 2.7 (<3.5-35.0) ng/L B-Natriuretic Peptide 574 H (<100) pg/mL Total Protein 6.2 L (6.5-8.0) g/dL Albumin 3.4 L (3.5-5.0) g/dL Urine Color Urine Appearance Urine pH (5.0-9.0) Ur Specific Weinert (1.005-1.025) Urine Protein (Neg-Trace) mg/dL Urine Glucose (UA) (Negative) mg/dL Urine Ketones (Negative) mg/dL Urine Blood (Negative) Urine Nitrite (Negative) Ur Leukocyte Esterase (Negative) Urine RBC (0-2) /HPF Urine WBC (0-5) /HPF Ur Squamous Epith Cells (0-2) /HPF Urine Bacteria (None Seen) Hyaline Casts (0-2) /LPF Influenza Type A (PCR) NEGATIVE (Negative) Influenza Type B (PCR) NEGATIVE (Negative) RSV RNA Qual (PCR) NEGATIVE (Negative) SARS-CoV-2 RNA (RT-PCR) NEGATIVE (Negative) 03/21/25 03/21/25 Range/Units 14:47 15:45 WBC (4.8-10.8) X10*3/uL RBC (4.60-5.80) X10*6/uL Hgb (14.0-18.0) g/dl Hct (42.0-52.0) % MCV (80.0-98.0) fL MCH (27.0-33.0) pg MCHC (31.0-36.0) g/dl RDW (11.0-16.0) % Plt Count (160-400) X10*3/uL MPV (9.4-12.4) fL Immature Gran % (Auto) (0.0-0.4) % Neut % (Auto) (45-73) % Lymph % (Auto) (20-40) % Frederick % (Auto) (2-11) % Eos % (Auto) (0-4) % Baso % (Auto) (0-2) % Lymph # (Auto) (1.2-4.9) X10*3/uL Frederick # (Auto) (0.1-1.2) X10*3/uL Eos # (Auto) (0.0-0.4) X10*3/uL Baso # (Auto) (0.0-0.2) X10*3/uL Abs Immat Gran (auto) (0.00-0.03) X10*3/uL Absolute Neuts (auto) (2.0-8.3) x10*3/uL Absolute Nucleated RBC (0.0-0.012) X10*3/uL Nucleated RBC % (auto) (0.0-0.2) /100WBC Sodium (135-145) mmol/L Potassium (3.3-5.1) mmol/L Chloride (96-108) mmol/L Carbon Dioxide (22-29) mmol/L Anion Gap (12-20) BUN (9-16) mg/dL Creatinine (0.5-1.4) mg/dL Estim Creat Clear Calc Estimated GFR POC Glucose 269 H (60-115) mg/dL Random Glucose (60-115) mg/dL Calcium (8.4-10.2) mg/dL Magnesium (1.6-2.6) mg/dL Total Bilirubin (0.0-1.0) mg/dL AST (5-37) U/L ALT (0-40) U/L Alkaline Phosphatase (39-117) U/L Troponin I High Sens (<3.5-35.0) ng/L B-Natriuretic Peptide (<100) pg/mL Total Protein (6.5-8.0) g/dL Albumin (3.5-5.0) g/dL Urine Color Yellow Urine Appearance Clear Urine pH 6.5 (5.0-9.0) Ur Specific Weinert 1.010 (1.005-1.025) Urine Protein 300 (3+) H (Neg-Trace) mg/dL Urine Glucose (UA) 500 H (Negative) mg/dL Urine Ketones Trace (Negative) mg/dL Urine Blood Negative (Negative) Urine Nitrite Negative (Negative) Ur Leukocyte Esterase Negative (Negative) Urine RBC 0-2 (0-2) /HPF Urine WBC 0-5 (0-5) /HPF Ur Squamous Epith Cells 0-2 (0-2) /HPF Urine Bacteria None Seen (None Seen) Hyaline Casts 3-5 (0-2) /LPF Influenza Type A (PCR) (Negative) Influenza Type B (PCR) (Negative) RSV RNA Qual (PCR) (Negative) SARS-CoV-2 RNA (RT-PCR) (Negative) Independent Interpretation I performed an independent interpretation of an: EKG and Plain X-Ray Interpretation: cxr without infiltrate or consolidation ekg showing NSR, rate of 78 bpm, no acute ischemic changes or st elevations Radiology Impression Discussion of test interpretation with radiology: I have reviewed the radiologist's reading. Radiologist Impression: Procedure(s): XR chest 2V Accession Number(s): [id number] cc: Jillian Downey; Zari Henry MD~ EXAMINATION: XR CHEST CLINICAL INFORMATION: weakness COMPARISON: Prior day. TECHNIQUE: 2 views of the chest were obtained. FINDINGS: The cardiac, hilar, and mediastinal contours are normal. The lungs are clear bilaterally. There is no pneumothorax or pleural effusion. There is no focal osseous or soft tissue abnormality. There are spinal degenerative changes. XR/XR chest 2V IMPRESSION: No active pulmonary disease. No significant interval change. Electronically signed by: Bony Ta MD 03/21/2025 01:46 PM EDT RP Independent Historian Clinical information obtained from an independent historian. History obtained from or confirmed by: EMS Discharge Plan Discharge Clinical Impression: Bronchitis, CHF (congestive heart failure) Patient Disposition: Home, Self-Care Instructions: Acute Bronchitis (ED) Additional Instructions: Your workup today is reassuring. Please mushroom picker the medications that were sent to your pharmacy yesterday (doxycycline, Zofran, Tylenol, Motrin). Take these as prescribed. Follow up with your outpatient provider. Return with new or worsening symptoms. In the case of an emergency call 911 Prescriptions: No Action hydralazine 100 mg tablet 100 mg PO TID 30 Days Qty: 90 5RF trazodone 50 mg tablet 100 mg PO BEDTIME escitalopram oxalate 10 mg tablet 10 mg PO DAILY atorvastatin 40 mg tablet 40 mg PO DAILY metoprolol succinate 100 mg tablet extended release 24 hr 100 mg PO DAILY magnesium oxide 400 mg (241.3 mg magnesium) Tablet 400 mg PO BIDPC Qty: 60 0RF fluticasone propion-salmeterol [Advair Diskus] 250-50 mcg/dose blister with device 1 ea inhalation BID amlodipine 5 mg tablet 10 mg PO DAILY omeprazole 40 mg capsule,delayed release(DR/EC) 40 mg PO DAILY@0630 fluticasone propionate 50 mcg/actuation Sunbright,Suspension 1 spray intranasal BID Qty: 16 0RF sucralfate 1 gram tablet 1 g PO QID isosorbide mononitrate 30 mg tablet extended release 24 hr 30 mg PO DAILY losartan 25 mg tablet 25 mg PO DAILY torsemide 20 mg tablet 20 mg PO DAILY Qty: 90 0RF ferrous sulfate [iron] 325 mg (65 mg iron) tablet 325 mg PO DAILY Qty: 30 0RF acetaminophen [Tylenol Extra Strength] 500 mg tablet 1,000 mg PO Q6H PRN (Reason: fever or pain) Qty: 20 0RF ibuprofen 400 mg tablet 400 mg PO TID PRN (Reason: fever or pain) Qty: 30 0RF ondansetron 4 mg tablet,disintegrating 4 mg PO Q6-8H PRN (Reason: nausea and vomiting) Qty: 14 0RF doxycycline hyclate 100 mg tablet 100 mg PO Q12H 7 Days Qty: 14 0RF morphine 15 mg tablet 15 mg PO Q8H PRN (Reason: pain) Qty: 10 0RF Rx Instructions: Partial Fill upon patient request. albuterol sulfate 90 mcg/actuation HFA aerosol inhaler 2 puff inhalation Q4H PRN (Reason: bronchospasm) (DME) Omnipod 5 G6 Intro Kit (Gen 5) Cartridge SUBCUT insulin lispro 100 unit/mL solution 100 unit DIRECTED Rx Instructions: INJECT up to 100 UNITS DIRECTED SEE ADMIN INSTRUCTIONS. USE PER INSULIN PUMP nicotine 21 mg/24 hr Patch 24 Hour 21 mg transdermal DAILY Qty: 90 0RF amoxicillin-pot clavulanate [Augmentin] 500-125 mg tablet 1 tab PO BID Qty: 14 0RF aspirin 81 mg tablet,delayed release (DR/EC) 81 mg PO DAILY torsemide 40 mg tablet 40 mg PO BID Referrals: Zari Henry MD [Primary Care Provider] - Interventions: ED Discharge Assessment Last Done: 03/21/25 17:58 Discharge Date/Time: 03/21/25 17:58 Print Language: Wolof
[2025-03-21 14:25] LABS: Influenza A PCR NEGATIVE (Negative); Influenza B PCR NEGATIVE (Negative); Resp Syncy Virus RNA Qual PCR NEGATIVE (Negative); SARS COV2 PCR INHOUSE NEGATIVE (Negative)
[2025-03-21 14:53] LABS: Glucose, Whole Blood 269 mg/dL (60-115)
[2025-03-21] MEDS: Ketorolac Tromethamine 30 MG/ML VIAL IVPUSH (15:51)
[2025-03-21] MEDS: ondansetron HCL 4 MG/2 ML VIAL IVPUSH (15:52)
[2025-03-21] MEDS: Doxycycline Hyclate 100 MG in 0.9 % Sodium Chloride 250 ML 166.67 MG IV (15:52)
[2025-03-21 15:57] LABS: Appearance Urine Clear; Color Urine Yellow; Glucose Urine UA 500 mg/dL (Negative); Leukocyte Esterase Urine Negative (Negative); Nitrite Urine Negative (Negative); PH 6.5 (5.0-9.0); UMIC TRIGGER UACC YES; Urine Blood Negative (Negative); Urine Ketones Trace mg/dL (Negative); Urine Protein 300 (3+) mg/dL (Neg-Trace)
[2025-03-21 16:03] LABS: Bacteria Urine None Seen (None Seen); RBC Urine 0-2 /HPF (0-2); Squamous Epithelial Cell Urine 0-2 /HPF (0-2); WBC Urine 0-5 /HPF (0-5)
[2025-03-21 16:24] VITALS: O2SAT 99
[2025-03-21 17:46] VITALS: BP 160/72
[2025-03-21] MEDS: Bumetanide 1 MG/4 ML VIAL 0.5 MG IVPUSH (17:46)
[2025-03-21 17:52] VITALS: BP 155/76; PULSE 70; RESP 20; O2SAT 100
[2025-03-21 17:58] VITALS: BP 155/76; PULSE 70; RESP 20; TEMP 37.1; O2SAT 100
== END 2025-03-21 17:58 | disposition home or self-care (01) ==
PROVIDERS: Physician Assistant Medical; Emergency Provider Emergency Medicine; PCP Internal Medicine
DX: J40 Bronchitis, not specified as acute or chronic (principal); I50.9 Heart failure, unspecified; R06.02 Shortness of breath; R05.9 Cough, unspecified; J44.9 Chronic obstructive pulmonary disease, unspecified; Z79.899 Other long term (current) drug therapy; F17.210 Nicotine dependence, cigarettes, uncomplicated; Z03.818 Encounter for observation for suspected exposure to other biological agents ruled out
CPT/HCPCS: 0241U; 36415; 71046; 80053; 81001; 81003; 82947; 83735; 83880; 84484; 85025; 93005; 96374; 96375; 99284; J1271; J1885; J1939; J2405

== ENCOUNTER → 2025-03-21 13:07 | Outpatient (BNV) | payer OTHER, SELFPAY | PROVIDERS: Emergency Provider Emergency Medicine; PCP Internal Medicine; Visit Provider Radiology Diagnostic Radiology | DX: R53.1 Weakness (principal) | CPT/HCPCS: 71046 ==

== ENCOUNTER → 2025-03-21 13:08 | Outpatient (BNV) | payer OTHER, SELFPAY | PROVIDERS: Emergency Provider Emergency Medicine; PCP Internal Medicine; Visit Provider Internal Medicine Cardiovascular Disease | DX: R53.1 Weakness (principal) | CPT/HCPCS: 93010 ==

== ENCOUNTER → 2025-05-15 10:06 | Outpatient (REF) | payer OTHER, SELFPAY ==
--- NOTE | ~2025-05-15 | NM_ITS ---
Lexiscan Myocardial perfusion study Indication: Congestive heart failure Technique: The patient was brought in for a Lexiscan perfusion study on 05/15/2025 and was injected 0.4 mg of Lexiscan intravenously. Within a minute of this injection 25 mCi of sestamibi was given intravenously. Images were obtained using the SPECT gamma camera interlaced with the gating device. Images were obtained in supine position. Resting perfusion study was performed on 05/16/2025. Patient was administered 25 mCi of sestamibi intravenously at rest. Images were then obtained in supine position. Total DLP 58 mGy-cm. Images were processed with the software and compared side to side in short axis, horizontal long axis and vertical long axis views. Findings: Raw aquisition reviewed. The stress perfusion study showed no significant perfusion abnormality. Both uncorrected as well as CT attenuation corrected images were reviewed. The gated study shows normal LV systolic function with calculated LVEF of 55%. LV cavity is normal in size. The gated study shows normal wall thickening and contraction of segments. Resting study shows no significant perfusion abnormality. Gating at rest reveals normal wall motion with ejection fraction at 65%. The findings are consistent with no clear reversible or fixed perfusion abnormality. NM/NM cardiolite stress test Impression: 1. Myocardial perfusion imaging study shows normal myocardial perfusion. 2. Gated LVEF is 55% during stress and 65% during rest. 3. Transient ischemic dilatation not present. EKG component of the test reported separately. Electronically signed by: Donaldo Armas MD 05/18/2025 10:35 AM EDT
--- NOTE | 2025-05-15 10:17 | CA_ITS ---
Acquisition Time: 2025-05-15 10:37:25 Total Exercise Time: 00:02:00 Test Indications: R93.1 Medications: SEE H&P Protocol: LEXISCAN Max HR: 109 BPM 64% of Pred: 170 BPM Max BP: 148/82 mmHG Max Work Load: 1.0 METS Pharmacological stress test with Lexiscan while pt marches in his chair, with reports of dizziness, SOB, abdominal discomfort, nausea, and feeling warm, without any arrythmias, with normotensive response to injection. Nondiagnostic EKG for ischemia. In recovery, pt treated with IVP Aminophyllinr 75 mg to reverse Lexiscan after which pt feeling back to baseline. Nuclear images pending. Test reviewed with Dr. Armas. Referred By: Alissa Wiggins Electronically Signed By: Pollo Spence
--- OUTSIDE RECORDS SUMMARY | 2025-05-15 10:33 | XMS_ITS | Clinical Summary ---
Author Organization [facility] Address [address] [address] Phone Care Team Providers Care Network Cabler Name Role Phone Zari Henry MD Primary Care Provider [phone] Allergies Active Allergy Reactions Criticality Noted Date [...] did not showed any significant lung disease. Sleep related hypoxia 08/17/2021 Overview (01/31/2023): On [...] Care Team (Late st Contact Info) Description 05/21/2025 2:30 PM EDT Office Visit [facility] [address] [address] Jong Hall MD [address] [address] Health Maintenance Due Date Last [...] Cancer Screening: Sigmoidoscopy 2023 Diabetes: Hemoglobin A1C 05/08/2025 02/06/2025, 10/30 Influenza Vaccine (#1) 2025 4, 07/22/2022, 07/22/2022, Additional history exists Pneumococcal Vaccine: Peds ( 0 to 5 Years) and At-Risk Patients (6 to 49 Years) Discontinued 10/08/[address] [place] [address] Care Teams Network Cabler Relationship Specialty Start Date End Date Zari Henry MD [address] [place] [id number] PCP - General Internal Medicine 12/09/24
--- OUTSIDE RECORDS SUMMARY | 2025-05-15 10:33 | XMS_ITS | Encounter Summary ---
Author Organization [facility] Address [address] [place] [address] Care Team Providers Care Support Services Coordinator Name Role Phone Zari Henry MD Primary Care Provider Encounter Details Date Type Department Care Team (Late Contact Info) Description 02/14/2025 Billing Patient Not Present Adult Medicine [facility] [address] [place] [address] Zari Henry MD [address] [place] [address] Social History Tobacco Use Types Packs/Day Years Used Date Smoking Tobacco: Light Smoker Cigarettes 0.5 34.5 Started: 10/30/1990 Smokeless Tobacco: Never Alcohol Use [...] Department Care Team (Late Contact Info) Description 06/10/2025 12:00 PM EDT Office Visit Nephrology [facility] [address] [place] [id number] Jong Hall MD [address] [facility] [address] [place] [address] 07/01/2025 1:30 PM EDT Consult Orthopedic Surgery - [place] [address] [facility] [address] [place] [address] Rivas Norman, DPM [address] [address] 09/08/2025 2:15 PM EST Office Visit Pulmonolgy - [place] [address] [facility] [address] [place] [phone] Nisa Machado MD [address] [address] 10/24/2025 2:45 PM EST Office Visit Adult Medicine [facility] [address] [place] [address] Nadege Begum PA [address] [place] [address] documented as of this encounter Visit Diagnoses Not on filedocumented in this encounter Care Teams Support Services Coordinator Relationship Specialty Start Date End Date Zari Henry MD [address] [place] [id number] PCP - General Internal Medicine 08/17/21 documented as of this encounter
--- OUTSIDE RECORDS SUMMARY | 2025-05-15 10:33 | XMS_ITS | Encounter Summary ---
[facility] Address [address] [place] [address] Care Team Providers Care Civil Engineering Professor Name Role Phone Mckenna Jones MD Primary Care Provider Unavail able Zari Henry MD Primary Care Provider [phone] Delmis Tran MD Unavailable [phone] Xuan Brantley MD Unavailable [phone] Reason for Visit * Reason Onset Date Comments TEST RESULTS 12/15/2020 Encounter Details Date Type Department Care Team Description 12/15/2020 Telephone Adult Medicine [address] [id number] Mckenna Jones MD TEST RESULTS Social History Tobacco Use Types Packs/Day Years Used Date Smoking Tobacco: Light Smoker Cigarettes 0.5 Smokeless Tobacco: Never Comments:6 cigaretts in a da y Alcohol Use Standard Drinks/Week Comments Yes 0 (1 standard drink = 0.6 oz pur e alcohol) occasionally Sex Assigned at Date Recorded Not on file Job Start Date Occupation Industry Not on file Not on file Not on file COVID-19 Exposure Response Date Recorded In the last month, have you been in contact with someone who was confirmed or suspected to have Coronavirus / COVID-19? No / Unsure 12/16/2020 10:15 AM EST documented as of this encounter Miscellaneous Notes * Telephone Encounter - Nicole Redd - 12/16/2020 8:57 AM EST Pt returning call please call pt Pt scheduled for 12/16/20 with isidro cisse * Telephone Encounter - Eugenia Mauricio R.N. - 12/15/2020 1:09 PM EST PT NEEDS F/U WITH CARE TEAM (Anitra CISSE ) FOR DM F/U documented in this encounter Plan of Treatment Not on file documented as of this encounter Visit Diagnoses Not on filedocumented in this encounter Additional Health Concerns Infection Onset Date Last Indicated Resolved Time COVID-19 12/20/2023 12/21/2023 documented as of this encounter Care Teams Civil Engineering Professor Relationship Specialty Start Date End Date Mckenna Jones MD PCP - General Internal Medicine 05/17/19 08/16/21 Zari Henry MD [address] [place] [id number] PCP - General Internal Medicine 08/17/21 Delmis Tran MD [address] [place] [address] Specialist Cardiology 04/10/23 05/04/23 Xuan Brantley MD [address] [place] [id number] Specialist Cardiology 05/05/23 documented as of this encounter
--- OUTSIDE RECORDS SUMMARY | 2025-05-15 10:33 | XMS_ITS | Clinical Summary ---
Author Organization [facility] Address [address] [place] [address] Care Team Providers Care Boiler Operator Helper Name Role Phone Zari Henry MD Primary Care Provider [phone] Allergies Active Allergy Reactions Criticality Noted Date [...] 78 07/11/2024 11:39 AM EDT Temperature 36.6 C (97.8 F) 07/11/2024 11:39 AM EDT Respiratory Rate - - Oxygen Saturation 97% [...] 2 - PPSV23 or PCV20) 12/03/2019 10/08/2019 Shingrix-Zoster Vaccine (1 of 2) 2024 Influenza Vaccine (#1) 2025 2, 07/22/2022, 07/16/2021, Additional history exists RSV Ped < 20 months Aged Out No longe r eligible based on patient's age to complete this topic Care Teams Boiler Operator Helper Relationship Specialty Start Date End Date Zari Henry MD PCP - General Internal Medicine 01/21/22
== END ==
LOC: HO.CARD 10:06
PROVIDERS: PCP Internal Medicine; Visit Provider Nurse Practitioner Family
DX: R93.1 Abnormal findings on diagnostic imaging of heart and coronary circulation (principal); I50.33 Acute on chronic diastolic (congestive) heart failure
CPT/HCPCS: 78452; 93017; A9500; J0280; J2785

== ENCOUNTER → 2025-05-15 10:17 | Outpatient (BNV) | payer OTHER, SELFPAY | PROVIDERS: PCP Internal Medicine | DX: R06.02 Shortness of breath (principal); R42 Dizziness and giddiness | CPT/HCPCS: 78452; 93016; 93018 ==

== ENCOUNTER → 2025-05-28 09:30 | Outpatient (BNV) | payer OTHER, SELFPAY | PROVIDERS: Emergency Provider Emergency Medicine; PCP Internal Medicine; Visit Provider Radiology Diagnostic Radiology | DX: R10.9 Unspecified abdominal pain (principal); R07.9 Chest pain, unspecified | CPT/HCPCS: 71045; 74176 ==

== ENCOUNTER 2025-05-28 10:06 | Inpatient (IN) | payer OTHER, SELFPAY ==
[2025-05-28] VITALS (8 sets, daily range): BP systolic 102–163; BP diastolic 71–92; PULSE 82–102; RESP 11–18; TEMP 36.6–36.9; O2SAT 96–100; BMI 18.4; BMI 21.5
--- NOTE | ~2025-05-28 | CT_ITS ---
EXAMINATION: CT ABDOMEN AND PELVIS WITHOUT CONTRAST CLINICAL INFORMATION: Acute kidney injury. Left flank pain. COMPARISON: June 02, 2024. TECHNIQUE: Multidetector volumetric imaging was performed from the superior aspect of the liver through the pubic symphysis. Sagittal and coronal reformatted images were obtained on the technologist's workstation. This CT examination was performed using dose optimization techniques as appropriate, variously including the following: *Automated exposure control *Adjustment of mA and/or kV according to patient size (this includes techniques or standardized protocols for targeted exams where dose is matched to indication/reason for exam; i.e. extremities or head) *Use of iterative reconstruction technique DLP: 314 mGy centimeter. FINDINGS: Inadequate evaluation of the intra-abdominal organs and vascular structures due to lack of IV contrast. LUNG BASES: No acute airspace disease. LIVER, GALLBLADDER, AND BILIARY TREE: Liver measures 14 cm. No pericholecystic fluid collection or gallbladder wall thickening. No gross intrahepatic or extrahepatic biliary ductal dilatation. PANCREAS: Normal peripancreatic fluid collection. No main pancreatic ductal dilatation. SPLEEN: 7 cm. ADRENAL GLANDS: Soft tissue fullness with the low density both adrenal glands measuring -23 Hounsfield units on the right side and -4.5 Hounsfield units left side. KIDNEYS AND URETERS: No gross hydronephrosis or nephrolithiasis in either kidney. Nonspecific perinephric edema pattern without fluid collections in the pararenal compartment. No dilatation of the ureters. BLADDER: Fluid-filled. GASTROINTESTINAL TRACT: Appendix is normal. Abundant stool, large intestine. Gas and fluid-filled mildly prominent proximal small bowel loops. No intestinal obstruction pattern. No ascites. No pneumoperitoneum. No pneumatosis intestinalis. ABDOMINAL WALL: Small fat-containing umbilical hernia. LYMPH NODES: No gross mesenteric or retroperitoneal lymphadenopathy. VASCULAR: Calcified plaques throughout the abdominal aorta wall and iliac arteries femoral arteries and descending thoracic aorta. No gross aneurysm in abdominal aorta. Calcified plaques in the renal arteries artery. Decreased lumen of the iliac arteries bilaterally. PELVIC VISCERA: Not enlarged. OSSEOUS STRUCTURES: Multilevel mild thoracolumbar spondylosis. Castellvi type III sacralization. S-shaped curvature of the thoracolumbar spine. CT/CT abdomen pelvis wo IV con IMPRESSION: No hydronephrosis or nephrolithiasis. Consider regional ileus. Bilateral adrenal hyperplasia Small fat-containing umbilical hernia. Atherosclerosis disease with the likely stenosis in the iliac arteries.. Fleischner guidelines were followed. Electronically signed by: Jayden Camacho MD 05/28/2025 12:32 PM EDT RP
--- NOTE | ~2025-05-28 | XR_ITS ---
EXAMINATION: XR CHEST 1 VIEW HISTORY: CP COMPARISON: Comparison is made with the prior examination dated 03/21/2025. FINDINGS: A single AP portable view of the chest performed at 10:30 AM is submitted. The lungs are expanded and clear. There is no pleural effusion, pneumothorax, or pulmonary vascular congestion. The heart is normal in size. The bones are intact. XR/XR chest 1V IMPRESSION: No acute cardiopulmonary abnormality. Electronically signed by: Yevgeniy Jhaveri MD 05/28/2025 10:43 AM EDT
--- NOTE | 2025-05-28 10:26 | ECG_ITS ---
Test Reason : chest pain Blood Pressure : */* mmHG Vent. Rate : 102 BPM Atrial Rate : 102 BPM P-R Int : 134 ms QRS Dur : 72 ms QT Int : 350 ms P-R-T Axes : 40 35 82 degrees QTcB Int : 456 ms Sinus tachycardia Nonspecific ST and T wave abnormality Abnormal ECG When compared with ECG of 21-Mar-2025 13:19, T wave inversion now evident in Anterior leads Referred By: Generic ED Physician Electronically Signed By: INOCENCIO BERGMAN MD
[2025-05-28 10:30] LABS: Glucose, Whole Blood 205 mg/dL (60-115)
--- NOTE | 2025-05-28 10:53 | ED.GENADULT ---
HPI - General Adult General Chief complaint: General Medical Stated complaint: FEELS ILL X2D,ABD PAIN,[id number] PER EMS Time Seen by Provider: 05/28/25 10:53 History of Present Illness ED Provider: Caty BANGURA narrative: The patient is a 49-year-old male with a history of congestive heart failure who lives at home. He has an electric cart at home. He has oxygen which he says he is supposed to only use at night. The patient says he has felt unwell for about 2 or 3 days. He says that he has lost 20 lb. He says that he has had chest pain and back pain and abdominal pain. He has had nausea but no vomiting. He says that he has felt hot and sweaty but he does not know if he has had a fever. He has a visiting nurse. He called a visiting nurse today and she advised him to come to the emergency room. He called an ambulance and was brought to the hospital. No pain or swelling in his legs. The patient is on torsemide, hydralazine, metoprolol, amlodipine, isosorbide mononitrate, losartan, insulin, and a baby aspirin among other medications. Related Data Home Medications ?Medication ?Instructions ?Recorded ?Confirmed escitalopram oxalate 10 mg tablet 10 mg PO DAILY 08/01/22 03/14/25 trazodone 50 mg tablet 100 mg PO BEDTIME 08/01/22 03/14/25 aspirin 81 mg tablet,delayed 81 mg PO DAILY 10/06/22 03/14/25 release atorvastatin 40 mg tablet 40 mg PO DAILY 10/06/22 03/14/25 metoprolol succinate 100 mg 100 mg PO DAILY 10/06/22 03/14/25 tablet,extended release 24 hr fluticasone 250 mcg-salmeterol 50 1 ea inhalation BID 12/22/23 03/14/25 mcg/dose blistr powdr for inhalation (Advair Diskus) albuterol sulfate 90 mcg/actuation 2 puff inhalation Q4H PRN 04/26/24 03/14/25 aerosol inhaler bronchospasm amlodipine 5 mg tablet 10 mg PO DAILY 06/02/24 03/14/25 insulin pump cartridge,automated 06/11/24 03/14/25 dose,BT with controller subcutaneous (Omnipod 5 G6 Intro Kit (Gen 5) subcutaneous cartridge with controller) omeprazole 40 mg capsule,delayed 40 mg PO DAILY@0630 07/15/24 03/14/25 release insulin lispro 100 unit/mL 100 unit DIRECTED 11/19/24 03/14/25 subcutaneous solution torsemide 40 mg tablet 40 mg PO BID 12/20/24 03/14/25 isosorbide mononitrate 30 mg 30 mg PO DAILY 01/14/25 03/14/25 tablet,extended release 24 hr losartan 25 mg tablet 25 mg PO DAILY 01/14/25 03/14/25 sucralfate 1 gram tablet 1 g PO QID 01/14/25 03/14/25 Previous Rx's ?Medication ?Instructions ?Recorded magnesium oxide 400 mg (241.3 mg 400 mg PO BIDPC #60 tabs 08/20/22 magnesium) tablet hydralazine 100 mg tablet 100 mg PO TID 30 days #90 tabs 05/09/23 fluticasone propionate 50 1 spray intranasal BID #16 grams 07/19/24 mcg/actuation nasal spray,suspension nicotine 21 mg/24 hr daily 21 mg transdermal DAILY #90 ea 11/26/24 transdermal patch ferrous sulfate 325 mg (65 mg 325 mg PO DAILY #30 tabs 01/15/25 iron) tablet (iron) torsemide 20 mg tablet 20 mg PO DAILY #90 tabs 01/15/25 amoxicillin 500 mg-potassium 1 tab PO BID #14 tabs 02/16/25 clavulanate 125 mg tablet (Augmentin) acetaminophen 500 mg tablet 1,000 mg (2 x 500 mg) PO Q6H PRN 03/20/25 (Tylenol Extra Strength) fever or pain #20 tabs doxycycline hyclate 100 mg tablet 100 mg PO Q12H 7 days #14 tabs 03/20/25 ibuprofen 400 mg tablet 400 mg PO TID PRN fever or pain 03/20/25 #30 tabs morphine 15 mg immediate release 15 mg PO Q8H PRN pain #10 tabs 03/20/25 tablet ondansetron 4 mg disintegrating 4 mg PO Q6-8H PRN nausea and 03/20/25 tablet vomiting #14 tabs Allergies Allergy/AdvReac Type Severity Reaction Status Date / Time dulaglutide (From [facility]) Allergy Unknown Verified 05/28/25 10:21 metformin (METFORMIN) AdvReac Mild DIARRHEA, Verified 05/28/25 10:21 nausea and vomiting Review of Systems Review of Systems: Yes all other systems are reviewed and are negative [facility] Past Medical History Medical History Tobacco use CKD (chronic kidney disease) stage 1, GFR 90 ml/min or greater YARELIS (obstructive sleep apnea) Acute on chronic diastolic (congestive) heart failure KELVIN (acute kidney injury) Chronic heart failure with preserved ejection fraction (HFpEF) Depression Acute on chronic anemia Anxiety HLD (hyperlipidemia) Diabetes HTN (hypertension) Asthma PAD (peripheral artery disease) Surgical History History of esophagogastroduodenoscopy S/P angiogram of extremity Family History Family History Father Alzheimer disease CAD (coronary artery disease) Social History Social History Household Members: None Household Members Other:: 4 Housing: Apartment Do you presently have visiting nurse or other home services: Yes Unable to assess alcohol history related to: Unknown Alcohol intake: current Alcohol intake frequency: 0-2 drinks per day Alcohol type: hard liquor Comment: pt is independent in room Patient Tobacco Use Status: Current everyday Tobacco user Tobacco use type: Cigarette Cigarette Packs Per Day: 1 Cigarettes Per Day: 20.0 Years Smoked: 35 Smoked in Last 30 Days: Yes e-Cigarette/Vaping Use: Never Used Second Hand Smoke Exposure: No Use of substances other than those prescribed or required for medical reasons: No Substance Use Type: Marijuana Advance Directives: Yes Advance Directives on File: Yes Advance Directives Date on File: 06/21/21 Do you have a plan to hurt others: No Plan service: No Current occupational status: disabled Physical Exam ED Vital Signs: Vital Signs - 24 hr 05/28/25 10:16 05/28/25 10:27 05/28/25 11:27 Temperature 98.4 F 98.4 F Pulse Rate 100 100 99 Respiratory Rate 18 18 11 L Blood Pressure 102/78 102/78 163/82 H Pulse Oximetry 99 99 100 Oxygen Delivery Method Nasal Cannula Nasal Cannula Room Air BMI result Body Mass Index 18.4 Const Other: The patient is a slim 49-year-old man who was awake and alert. He looks chronically ill. He does not appear obviously acutely ill. His mental status is clear. He does not show any signs of increased work of breathing. He has not appear overtly uncomfortable or toxic in any way. He looks tired. HENMT Other: The face is symmetrical. ?Mucous membranes moist. Eyes Other: Pupils are round equal, conjunctivae are clear, extraocular movements intact Neck Neck: Yes normal visual inspection, Yes full ROM and Yes no JVD Resp Effort & Inspection: normal respiratory effort Auscultation: clear to auscultation bilaterally Cardio Rate: regular rate Rhythm: regular rhythm Heart sounds: S1 normal heart sound present and S2 normal heart sound present GI Other: The abdomen is soft and does not seem focally tender. Skin Other: Skin is pale and dry Neuro Other: The patient is awake and alert with a normal mental status. Cranial nerves are grossly intact. He moves his extremities symmetrically and appropriately. No focal finding. Extrem Other: There is no calf swelling or tenderness. No asymmetry. No peripheral edema. Medications Administered Generic Name Dose Route Start Last Admin Trade Name Freq PRN Reason Stop Dose Admin Potassium Chloride/Sodium Chloride 40 meq in 1,000 mls @ 250 mls/hr 05/28/25 12:00 05/28/25 12:15 Kcl 40 Meq In 0.9 % Sodium Chl IV 05/28/25 15:59 250 mls/hr .Q4H DIONISIO Administration Discontinued Medications Generic Name Dose Route Start Last Admin Trade Name Freq PRN Reason Stop Dose Admin Morphine Sulfate 4 mg 05/28/25 12:39 05/28/25 13:14 Morphine Sulfate 4 Mg/Ml Cartridge IVPUSH 05/28/25 12:40 4 mg ONCE ONE Administration Protocol Ondansetron HCl 4 mg 05/28/25 12:39 05/28/25 13:14 Ondansetron Hcl 4 Mg/2 Ml Vial IVPUSH 05/28/25 12:40 4 mg ONCE ONE Administration Potassium Chloride 40 meq 05/28/25 11:47 05/28/25 11:57 Potassium Chloride Er 20 Meq Tab.Er.Prt PO 05/28/25 11:48 40 meq ONCE ONE Administration Medical Decision Making Medical Decision Making MDM Narrative: The patient is a 49-year-old male with a history of congestive heart failure who also has a history of significant hypertension. He is on multiple antihypertensives and torsemide. He presents with 2 days of feeling unwell. He also reports a 20 lb weight loss over the last 2 weeks. He has complaints of back pain and abdominal discomfort. His labs show that he has an acute kidney injury. He has almost doubled his creatinine. My suspicion is that the patient has acute kidney injury is probably secondary to his medications. I think the patient is very dry. His BNP is normal which is unusual for him. His chest x-ray is clear. The patient's lipase is elevated at 218. The significance of this finding is unclear. There are no obvious signs of pancreatic inflammation on his noncontrast CT of the abdomen and pelvis. Additionally the CT of the abdomen and pelvis shows no obvious ureteral obstruction to account for his worsening renal function. The patient is hypokalemic with a potassium of 2.8. Overall I see the patient will need to be hospitalized for management of his acute kidney injury and hypokalemia and he may need a review of his medications. He will be admitted to the hospitalist service. He was given IV fluids containing potassium and also oral potassium. Lab Data 05/28/25 10:50 05/28/25 10:50 Labs: Lab Results 05/28/25 05/28/25 Range/Units 10:24 10:50 WBC 13.0 H (4.8-10.8) X10*3/uL RBC 4.30 L (4.60-5.80) X10*6/uL Hgb 11.8 L (14.0-18.0) g/dl Hct 34.7 L (42.0-52.0) % MCV 80.7 (80.0-98.0) fL MCH 27.4 (27.0-33.0) pg MCHC 34.0 (31.0-36.0) g/dl RDW 19.2 H (11.0-16.0) % Plt Count 217 (160-400) X10*3/uL MPV 10.1 (9.4-12.4) fL Immature Gran % (Auto) 0.5 H (0.0-0.4) % Neut % (Auto) 79.5 H (45-73) % Lymph % (Auto) 12.0 L (20-40) % [place] % (Auto) 7.6 (2-11) % Eos % (Auto) 0.2 (0-4) % Baso % (Auto) 0.2 (0-2) % Lymph # (Auto) 1.6 (1.2-4.9) X10*3/uL [place] # (Auto) 1.0 (0.1-1.2) X10*3/uL Eos # (Auto) 0.0 (0.0-0.4) X10*3/uL Baso # (Auto) 0.0 (0.0-0.2) X10*3/uL Abs Immat Gran (auto) 0.06 H (0.00-0.03) X10*3/uL Absolute Neuts (auto) 10.3 H (2.0-8.3) x10*3/uL Absolute Nucleated RBC 0.000 (0.0-0.012) X10*3/uL Nucleated RBC % (auto) 0.0 (0.0-0.2) /100WBC Sodium 137 (135-145) mmol/L Potassium 2.8 L* (3.3-5.1) mmol/L Chloride 103 (96-108) mmol/L Carbon Dioxide 21 L (22-29) mmol/L Anion Gap 16 (12-20) BUN 26 H (9-16) mg/dL Creatinine 2.28 H (0.5-1.4) mg/dL Estim Creat Clear Calc 27.4 Estimated GFR 31 POC Glucose 205 H (60-115) mg/dL Random Glucose 222 H (60-115) mg/dL Calcium 8.5 (8.4-10.2) mg/dL Total Bilirubin 0.5 (0.0-1.0) mg/dL AST 30 (5-37) U/L ALT 24 (0-40) U/L Alkaline Phosphatase 114 (39-117) U/L Troponin I High Sens 22.4 D (<3.5-35.0) ng/L C-Reactive Protein 0.78 H (< or = 0.50) mg/dL B-Natriuretic Peptide 29 (<100) pg/mL Total Protein 6.8 (6.5-8.0) g/dL Albumin 3.8 (3.5-5.0) g/dL Triglycerides 283 H (<150) mg/dL Lipase 218 H (8-78) U/L Ethyl Alcohol < 10 mg/dL Influenza Type A (PCR) NEGATIVE (Negative) Influenza Type B (PCR) NEGATIVE (Negative) RSV RNA Qual (PCR) NEGATIVE (Negative) SARS-CoV-2 RNA (RT-PCR) NEGATIVE (Negative) Independent Interpretation I performed an independent interpretation of an: EKG Interpretation: EKG at 10:52 shows sinus tachycardia at 102 beats per minute. There are nonspecific ST and T-wave changes. Some changes in the lateral leads new from previous. Critical Care Time Critical Care Time Critical Care Time: Yes Total Critical Care Time: 35 Attestation: The patient was critically ill with a high probability of imminent or life-threatening deterioration. ?I spent greater than 30 minutes of discontinuous time evaluating the patient, delivering critical care at the bedside, discussing evaluating data with consultants. ?Critical care time does not include time spent performing separately billable procedures or teaching. ?Time spent performing critical care with 35 minutes. Discharge Plan Discharge Clinical Impression: Acute kidney injury Patient Disposition: Admitted As Inpatient
[2025-05-28 11:01] LABS: MANUAL DIFF FLAG NO
[2025-05-28 11:19] LABS: Hematocrit 34.7 % (42.0-52.0); Hemoglobin 11.8 g/dl (14.0-18.0); Imm Gran Abs Auto 0.06 X10*3/uL (0.00-0.03); Imm Gran Pct Auto 0.5 % (0.0-0.4); Lymphocytes Absolute Auto 1.6 X10*3/uL (1.2-4.9); Mean Corpuscular HGB Conc 34.0 g/dl (31.0-36.0); Mean Corpuscular Hemoglobin 27.4 pg (27.0-33.0); Mean Corpuscular Volume 80.7 fL (80.0-98.0); NRBC Abs Auto 0.000 X10*3/uL (0.0-0.012); NRBC Pct Auto 0.0 /100WBC (0.0-0.2); Platelet Count 217 X10*3/uL (160-400); Red Blood Count 4.30 X10*6/uL (4.60-5.80); White Blood Count 13.0 X10*3/uL (4.8-10.8)
[2025-05-28 11:30] LABS: B Type Natriuretic Peptide 29 pg/mL (<100)
[2025-05-28 11:33] LABS: Troponin-I High Sensitivity 22.4 ng/L (<3.5-35.0)
[2025-05-28 11:39] LABS: Resp Syncy Virus RNA Qual PCR NEGATIVE (Negative); SARS COV2 PCR INHOUSE NEGATIVE (Negative)
[2025-05-28 11:40] LABS: Alanine Aminotransferase 24 U/L (0-40); Albumin Level 3.8 g/dL (3.5-5.0); Alkaline Phosphatase 114 U/L (39-117); Anion Gap 16 (12-20); Aspartate Amino Transferase 30 U/L (5-37); Blood Urea Nitrogen 26 mg/dL (9-16); Calcium 8.5 mg/dL (8.4-10.2); Carbon Dioxide 21 mmol/L (22-29); Chloride 103 mmol/L (96-108); Creatinine Clr Calc Pharmacy 27.4; Estimated Glomerular Filt Rate 31; Potassium 2.8 mmol/L (3.3-5.1); Sodium 137 mmol/L (135-145); Total Protein 6.8 g/dL (6.5-8.0)
[2025-05-28] MEDS: Potassium Chloride ER 20 MEQ TAB.ER.PRT 40 MEQ PO (11:57)
--- OUTSIDE RECORDS SUMMARY | 2025-05-28 12:05 | XMS_ITS | Encounter Summary ---
Author Organization [facility] Address [address] [place] [address] Care Team Providers Care Retail Beauty Specialist Name Role Phone Zari Henry MD Primary Care Provider [phone] Encounter Details Date Type Department Care Team (Late Contact Info) Description 02/14/2025 Billing Patient Not Present Adult Medicine [facility] [address] [place] [address] aZri Henry MD [address] [place] [address] Social History Tobacco Use Types Packs/Day Years Used Date Smoking Tobacco: Light Smoker Cigarettes 0.5 34.6 Started: 10/30/1990 Smokeless Tobacco: Never Alcohol Use [...] Office Visit [facility]phrology [facility] [address] [place] [id number] Jong Hall MD [address] [facility] [address] [place] [address] 07/01/2025 1:30 PM EDT Consult Orthopedic Surgery - [place] [address] [facility] [address] [place] [address] Rivas Norman, FRITZM [address] [address] 08/25/2025 2:30 PM EDT Office Visit Adult Medicine [facility] [address] [place] [address] Nadege Begum PA [address] [place] [address] 09/08/2025 2:15 PM EST Office Visit Pulmonolgy - [place] [address] [facility] [address] [place] [address] Nisa Machado MD 175 [facility] [address] [place] [address] documented as of this encounter Visit Diagnoses Not on filedocumented in this encounter Care Teams Retail Beauty Specialist Relationship Specialty Start Date End Date Zari Henry MD [address] [place] [address] PCP - General Internal Medicine 08/17/21 documented as of this encounter
--- OUTSIDE RECORDS SUMMARY | 2025-05-28 12:05 | XMS_ITS ---
Author Name [facility] Organization Unknown Care Team Organization Name Specialty Phone Email Start Date End Da te [facility] Misha Blanco Primary Care 01/04/2023 [facility] Zari Henry Primary Care 09/06/2022
--- OUTSIDE RECORDS SUMMARY | 2025-05-28 12:05 | XMS_ITS | Clinical Summary ---
Author Organization [facility] Address [address] [address] Phone Care Team Providers Care Abrasive Water Jet Cutter Operator Name Role Phone Zari Henry MD Primary Care Provider [phone] Allergies Active Allergy Reactions Criticality Noted Date [...] Care Team (Late st Contact Info) Description 06/19/2025 3:45 PM EDT Office Visit [facility] [address] [address] Jong Hall MD [address] [address] Health Maintenance Due Date Last [...] Patients (6 to 49 Years) Discontinued 10/08/2019 Procedures Procedure Name Priority Date/Time Associated Diagnosis Comments PTH, INTACT Routine 05/20/2025 11:21 AM EDT VITAMIN D 25 HYDROXY Routine 05/20/2025 11:21 AM EDT URINE ALBUMIN / CREATININE RATIO Routine 05/20/2025 11:21 AM EDT RENAL FUNCTION PANEL Routine 05/20/2025 11:21 AM EDT from Last 3 Months Results * (ABNORMAL) Urine Albumin / Creatinine Ratio (05/20/2025 11:21 AM EDT) Creatinine, Ur 378.0 Not Estab. mg/dL [facility] Albumin, Urine 1,229.7 Not Estab. ug/mL [facility] Comment: Results confirmed on dilution. Albumin/Creatin ine Ratio 325(H) 0 - 29 mg/g creat [facility] Comment: Normal: 0 - 29 Moderately increased: 30 - 300 Severely increased: >300 05/20/2025 11:2 1 AM EDT 05/20/2025 Jong Hall MD LAB URINE ORDERABLES Final Resul t [facility] [address] [place] [address] * (ABNORMAL) Vitamin D 25 Hydroxy (05/20/2025 11:21 AM EDT) Vitamin D, 25-OH, Total 10.8(L) 30.0 - 100.0 ng/mL [facility] Comment: Vitamin D deficiency has been defined by the [place] of Medicine and an Endocrine Society practice guideline as a level of serum 25-OH vitamin D less than 20 ng/mL (1,2). The Endocrine Society went on to further define vitamin D insufficiency as a level between 21 and 29 ng/mL (2). 1. IOM ([place] of Medicine). 2010. Dietary reference intakes for calcium and D. [facility]: The National Academies Press. 2. Rochelle MF, Vickie JAMES, Ramses DOYLE, et al. Evaluation, treatment, and prevention of vitamin D deficiency: an Endocrine Society clinical practice guideline. JCEM. 2010; 96(7):1911-30. 05/20/2025 11:2 1 AM EDT 05/20/2025 us Jong Hall MD LAB BLOOD ORDERABLES Final Resul t [facility] [address] [place] [address] * PTH, Intact (05/20/2025 11:21 AM EDT) PTH 43 15 - 65 pg/mL [facility] 05/20/2025 11:2 1 AM EDT 05/20/2025 us Jong Hall MD LAB BLOOD ORDERABLES Final Resul t Performing Organization Address City/[facility] Co de Phone Number [facility] [address] [place] [address] * (ABNORMAL) Renal Function Panel (05/20/2025 11:21 AM EDT) Glucose 150(H) 70 - 99 mg/dL [facility] BUN 18 6 - 24 mg/dL [facility] Creatinine 1.71(H) 0.76 - 1.27 mg/dL [facility] eGFR CKD-EPI CR 2020 48(L) >59 mL/min/1.7 3 [facility] BUN/Creatinine Ratio 11 9 - 20 [facility] Sodium 139 134 - 144 mmol/L [facility] Potassium 4.2 3.5 - 5.2 mmol/L [facility] Chloride 104 96 - 106 mmol/L [facility] Bicarbonate (CO2) 18(L) 20 - 29 mmol/L [facility] Calcium 8.9 8.7 - 10.2 mg/dL [facility] Albumin 3.9(L) 4.1 - 5.1 g/dL [facility] Phosphorus 2.4(L) 2.8 - 4.1 mg/dL [facility] 05/20/2025 11:2 1 AM EDT 05/20/2025 us Jong Hall MD LAB BLOOD ORDERABLES Final Resul t [facility] [address] [place] [address] from Last 3 Months Insurance Medicaid Care Teams Abrasive Water Jet Cutter Operator Relationship Specialty Start Date End Date Zari Henry MD [address] [place] [id number] PCP - General Internal Medicine 12/09/24
--- OUTSIDE RECORDS SUMMARY | 2025-05-28 12:05 | XMS_ITS | Clinical Summary ---
Author Organization [facility] Address [address] [place] [address] Care Team Providers Care Communications Maintainer Name Role Phone Zari Henry MD Primary Care Provider [phone] Allergies Active Allergy Reactions Criticality Noted Date [...] age to complete this topic Care Teams Communications Maintainer Relationship Specialty Start Date End Date Zari Henry MD PCP - General Internal Medicine 01/21/22
--- OUTSIDE RECORDS SUMMARY | 2025-05-28 12:05 | XMS_ITS | Encounter Summary ---
Author Organization [facility] Address [address] [place] [address] Care Team Providers Care Truck Driving Instructor Name Role Phone Mckenna Jones MD Primary Care Provider Unavail able Zari Henry MD Primary Care Provider Delmis Tran MD Unavailable [phone] Xuan Brantley MD Unavailable [phone] Reason for Visit * Reason Onset Date Comments TEST RESULTS 12/15/2020 Encounter Details Date Type Department Care Team Description 12/15/2020 Telephone Adult Medicine [address] [phone] Mckenna Jones MD TEST RESULTS Social History [...] documented as of this encounter Care Teams Truck Driving Instructor Relationship Specialty Start Date End Date Mckenna Jones MD PCP - General Internal Medicine 05/17/19 08/16/21 Zari Henry MD [address] [place] [address] PCP - General Internal Medicine 08/17/21 Delmis Tran MD [address] [place] [address] Specialist Cardiology 04/10/23 05/04/23 Xuan Brantley MD [address] [place] [address] Specialist Cardiology 05/05/23 documented as of this encounter
[2025-05-28 12:08] LABS: Lipase 218 U/L (8-78)
[2025-05-28] MEDS: KCl 40 mEq in 0.9 % Sodium Chl 40 MEQ/1,000 ML IV.SOLN 250 MEQ IV (12:15)
[2025-05-28 12:58] LABS: Triglycerides 283 mg/dL (<150)
[2025-05-28 13:25] LABS: Glucose, Whole Blood 119 mg/dL (60-115)
--- NOTE | 2025-05-28 14:15 | PM.IMHP ---
History of Present Illness Date of Service: 05/28/25 Chief Complaint: feeling unwell The patient is a 49-year-old male with a past medical history of multiple medical problems including CHF, hypertension, depression, COPD, YARELIS on CPAP, hyperlipidemia, type 2 diabetes, peripheral arterial disease who presents to the emergency room with a several day history of generalized malaise. The patient reports associated nausea without vomiting. He reports multiple bouts of diarrhea. He reports feeling sweaty but denies any objective fevers. He reports poor oral intake due to his nausea. He denies any bleeding. He reports compliance with his medications during this time including diuretics. Upon further questioning the patient does report possible sick contact with his grandson whom he saw about 2 days prior to the beginning of his symptoms. Reports that his grandson may have had diarrhea. He denies any recent antibiotic use. Furthermore, the patient reports back pain and abdominal pain. He reports that his abdominal pain is crampy in nature and relieved by bowel movements. He reports his back pain to be paraspinal and thinks may be related to prolonged lying. He denies any anginal symptoms. He denies any cough or shortness of breath. In the emergency room the patient was found to have acute kidney injury as well as hypokalemia. He has not had any diarrhea since arrival. He was treated with IV morphine for his pain given p.o. potassium as well as 1 L of fluids with 40 KCL over 4 hours which is currently infusing. He reports improvement in his nausea and is requesting a diet. He currently denies any abdominal pain or back pain. Review of Systems Review of Systems: Negative except HPI/interval history. FORMERLY [facility] Medical History Tobacco use CKD (chronic kidney disease) stage 1, GFR 90 ml/min or greater YARELIS (obstructive sleep apnea) Acute on chronic diastolic (congestive) heart failure KELVIN (acute kidney injury) Chronic heart failure with preserved ejection fraction (HFpEF) Depression Acute on chronic anemia Anxiety HLD (hyperlipidemia) Diabetes HTN (hypertension) Asthma PAD (peripheral artery disease) Family History Father Alzheimer disease CAD (coronary artery disease) Surgical History History of esophagogastroduodenoscopy S/P angiogram of extremity Social History Household Members: None Household Members Other:: 4 Housing: Apartment Do you presently have visiting nurse or other home services: Yes Unable to assess alcohol history related to: Unknown Alcohol intake: current Alcohol intake frequency: 0-2 drinks per day Alcohol type: hard liquor Comment: pt is independent in room Patient Tobacco Use Status: Current everyday Tobacco user Tobacco use type: Cigarette Cigarette Packs Per Day: 1 Cigarettes Per Day: 20.0 Years Smoked: 35 Smoked in Last 30 Days: Yes e-Cigarette/Vaping Use: Never Used Second Hand Smoke Exposure: No Use of substances other than those prescribed or required for medical reasons: No Substance Use Type: Marijuana Advance Directives: Yes Advance Directives on File: Yes Advance Directives Date on File: 06/21/21 Do you have a plan to hurt others: No Plan service: No Current occupational status: disabled Meds Allergies Allergy/AdvReac Type Severity Reaction Status Date / Time dulaglutide (From [facility]) Allergy Unknown Verified 05/28/25 10:21 metformin (METFORMIN) AdvReac Mild DIARRHEA, Verified 05/28/25 10:21 nausea and vomiting Active Medications: Current Medications Acetaminophen (Acetaminophen 325 Mg Tablet) 650 mg PO Q6H PRN PRN Reason: Pain, Mild 1-3,fever,headache Calcium Carbonate (Calcium Carbonate 750 Mg Tab.Chew) 750 mg PO Q4H PRN PRN Reason: Heartburn Potassium Chloride/Sodium Chloride (Kcl 40 Meq In 0.9 % Sodium Chl) 40 meq in 1,000 mls @ 250 mls/hr IV .Q4H DIONISIO Stop: 05/28/25 15:59 Last Admin: 05/28/25 12:15 Dose: 250 mls/hr Magnesium Hydroxide (Milk Of Magnesia 30 Ml Oral.Susp) 30 ml PO DAILY PRN PRN Reason: Constipation Melatonin (Melatonin 3 Mg Tablet) 6 mg PO BEDTIME PRN PRN Reason: Insomnia Sodium Chloride (0.9 % Sodium Chloride Flush 3 Ml Syringe) 3 ml IVFLUSH QSHIFT [facility] Home Medications ?Medication ?Instructions ?Recorded ?Confirmed ?Last Taken ?Type escitalopram oxalate 10 mg tablet 10 mg PO DAILY 08/01/22 03/14/25 01/13/25 History trazodone 50 mg tablet 100 mg PO BEDTIME 08/01/22 03/14/25 01/13/25 History aspirin 81 mg tablet,delayed 81 mg PO DAILY 10/06/22 03/14/25 01/13/25 History release atorvastatin 40 mg tablet 40 mg PO DAILY 10/06/22 03/14/25 01/13/25 History metoprolol succinate 100 mg 100 mg PO DAILY 10/06/22 03/14/25 01/13/25 History tablet,extended release 24 hr fluticasone 250 mcg-salmeterol 50 1 ea inhalation BID 12/22/23 03/14/25 01/13/25 History mcg/dose blistr powdr for inhalation (Advair Diskus) albuterol sulfate 90 mcg/actuation 2 puff inhalation Q4H PRN 04/26/24 03/14/25 07/15/24 History aerosol inhaler bronchospasm amlodipine 5 mg tablet 10 mg PO DAILY 06/02/24 03/14/25 01/13/25 History insulin pump cartridge,automated 06/11/24 03/14/25 Unknown History dose,BT with controller subcutaneous (Omnipod 5 G6 Intro Kit (Gen 5) subcutaneous cartridge with controller) omeprazole 40 mg capsule,delayed 40 mg PO DAILY@0630 07/15/24 03/14/25 01/13/25 History release insulin lispro 100 unit/mL 100 unit DIRECTED 11/19/24 03/14/25 01/13/25 History subcutaneous solution torsemide 40 mg tablet 40 mg PO BID 12/20/24 03/14/25 01/13/25 History isosorbide mononitrate 30 mg 30 mg PO DAILY 01/14/25 03/14/25 01/13/25 History tablet,extended release 24 hr losartan 25 mg tablet 25 mg PO DAILY 01/14/25 03/14/25 01/13/25 History sucralfate 1 gram tablet 1 g PO QID 01/14/25 03/14/25 01/13/25 History Physical Exam Vital Signs and Narrative: Vital Signs: Last Vital Signs Temp 98.4 F 05/28/25 10:27 Pulse 99 05/28/25 11:27 Resp 11 L 05/28/25 11:27 BP 163/82 H 05/28/25 11:27 Pulse Ox 100 05/28/25 11:27 O2 Del Method Room Air 05/28/25 11:27 Oxygen Flow Rate 2 05/28/25 10:16 BMI result Body Mass Index 18.4 Const: Other: Constitutional - Awake and Alert, No apparent distress HEENT - PERRLA, EOMI Cardiovascular - S1S2, RRR, No edema Respiratory - Normal lung expansion, Normal respiratory effort, No respiratory distress, CTA bilaterally Gastrointestinal - mild distension without TTP - No CVA tenderness Extremities - no calf tenderness bilaterally, no swelling Musculoskeletal - Normal inspection, normal ROM; SLR neg b/l; no significant spinal/paraspinal TTP Skin - appears dry Neurological - Alert & oriented x3, No focal deficit Psychological - Appropriate affect Results Labs 05/28/25 10:50 05/28/25 10:50 Labs: Laboratory Results - last 24 hr 05/28/25 05/28/25 05/28/25 10:24 10:50 13:22 MCV 80.7 MCH 27.4 MCHC 34.0 RDW 19.2 H Plt Count 217 MPV 10.1 Immature Gran % (Auto) 0.5 H Neut % (Auto) 79.5 H Lymph % (Auto) 12.0 L [place] % (Auto) 7.6 Eos % (Auto) 0.2 Baso % (Auto) 0.2 Lymph # (Auto) 1.6 [place] # (Auto) 1.0 Eos # (Auto) 0.0 Baso # (Auto) 0.0 Abs Immat Gran (auto) 0.06 H Absolute Neuts (auto) 10.3 H Absolute Nucleated RBC 0.000 Nucleated RBC % (auto) 0.0 Anion Gap 16 Estim Creat Clear Calc 27.4 Estimated GFR 31 POC Glucose 205 H 119 H Random Glucose 222 H Calcium 8.5 Total Bilirubin 0.5 AST 30 ALT 24 Alkaline Phosphatase 114 C-Reactive Protein 0.78 H B-Natriuretic Peptide 29 Total Protein 6.8 Albumin 3.8 Triglycerides 283 H Lipase 218 H Ethyl Alcohol < 10 Influenza Type A (PCR) NEGATIVE Influenza Type B (PCR) NEGATIVE RSV RNA Qual (PCR) NEGATIVE SARS-CoV-2 RNA (RT-PCR) NEGATIVE Imaging Radiologist's Impressions: Impressions Chest X-Ray 05/28/25 09:30 IMPRESSION: No acute cardiopulmonary abnormality. Electronically signed by: Yevgeniy Jhaveri MD 05/28/2025 10:43 AM EDT RP Abdomen/Pelvis CT 05/28/25 11:05 IMPRESSION: No hydronephrosis or nephrolithiasis. Consider regional ileus. Bilateral adrenal hyperplasia Small fat-containing umbilical hernia. Atherosclerosis disease with the likely stenosis in the iliac arteries.. Fleischner guidelines were followed. Electronically signed by: Jayden Camacho MD 05/28/2025 12:32 PM EDT RP Assessment and Plan (1) Acute kidney injury: Status: Acute Plan 49 yo M with multiple medical problems presenting with 3 days of generalized malaise + abdomina pain/diarrhea/back pain. Found to have hypoK + KELVIN. Clinically appears dehydrated. Will be admitted for further treatment. 1. KELVIN SCr doubled from baseline likely due to dehydration from diarrhea as well as concurrent use of diuretics plus losartan Started on 1 L of fluids with potassium in the ED, we will give an additional L and re-evaluate labs tomorrow morning 2. Hypokalemia Secondary to GI losses EKG with some T-wave inversions, we will repeat after potassium replacement 3. Diarrhea Abundant stool in the large intestine, question overflow However does have sick contacts in her grandson. We will check stool studies 4. Ileus Due to above Should improve with hydration 5. Chronic HFpEF hold diuretics and ARB continue other baseline meds as appropriate 6. DM hold orals, use POC + sliding scale 7. HTN BP initially soft on arrival, now increasing monitor and restart BP meds if remains high Full Code DVT pptx - lovenox Med rec pending -- continue as appropriate once completed. Patient with diarrhea and signs of volume depletion read leading to acute kidney injury and hypokalemia + EKG changes, with possible ileus, with risk factors including CHF, diabetes, COPD therefore expected to require at a minimum 2 midnights in the hospital for further treatment and hence will be admitted as inpatient. Quality Stroke Does the patient have a stroke diagnosis?: No VTE Prior VTE?: No VTE Risk Level:: Medical - moderate - high VTE Device Contraindication: N/A - Device Ordered VTE Drug Contraindication: N/A - Med Ordered
[2025-05-28 14:49] LABS: Glucose, Whole Blood 101 mg/dL (60-115)
[2025-05-28 14:51] LABS: Appearance Urine Clear; Glucose Urine UA Negative (Negative); PH 6.0 (5.0-9.0); Specific Gravity - Urine 1.015 (1.005-1.025); UMIC TRIGGER UACC YES
--- NOTE | 2025-05-28 15:10 | PHA.MEDREC ---
Addendum entered by Kia Chong [facility] 05/28/25 15:19: reviewed Original Note: Pharmacy Consult ? Medication Reconciliation Pharmacy has completed the medication reconciliation. Spoke to patient to confirm med list. Patient states he is no longer taking Tylenol 1,000 mg, Advair, Flonase, Isosorbide mono 30 mg, Losartan 25 mg, and Zofran 4 mg. Patient confirmed he has an Omni pod 5 G6 and he use insulin lispro. he has pump on now. Patient states he takes Morphine 15 mg prn and he has a few left , last fill date 03/20/25. Patient last had his medications yesterday.
--- NOTE | 2025-05-28 16:22 | PC.NURSE ---
Alert and oriented, reports lower back pain has improved. Provided with flood/fluids per patients request. vss, at bedside
[2025-05-28] MEDS: Lactated Ringers 1,000 ML 100 ML IVCONT (16:30)
[2025-05-28 16:57] LABS: Glucose, Whole Blood 201 mg/dL (60-115)
[2025-05-28 21:29] LABS: Glucose, Whole Blood 174 mg/dL (60-115)
[2025-05-29 03:55] VITALS: BP 139/71; PULSE 77; RESP 16; TEMP 36.9; O2SAT 98
[2025-05-29 07:08] LABS: Glucose, Whole Blood 169 mg/dL (60-115)
[2025-05-29 07:12] LABS: Hematocrit 33.8 % (42.0-52.0); Hemoglobin 11.1 g/dl (14.0-18.0); Mean Corpuscular HGB Conc 32.8 g/dl (31.0-36.0); Mean Corpuscular Hemoglobin 27.2 pg (27.0-33.0); Mean Corpuscular Volume 82.8 fL (80.0-98.0); NRBC Abs Auto 0.000 X10*3/uL (0.0-0.012); NRBC Pct Auto 0.0 /100WBC (0.0-0.2); Platelet Count 192 X10*3/uL (160-400); Red Blood Count 4.08 X10*6/uL (4.60-5.80); White Blood Count 8.2 X10*3/uL (4.8-10.8)
[2025-05-29 07:16] VITALS: BP 142/83; PULSE 84; RESP 20; TEMP 36.9; O2SAT 97
[2025-05-29 07:16] LABS: Alanine Aminotransferase 22 U/L (0-40); Albumin Level 3.4 g/dL (3.5-5.0); Alkaline Phosphatase 111 U/L (39-117); Anion Gap 15 (12-20); Aspartate Amino Transferase 34 U/L (5-37); Blood Urea Nitrogen 18 mg/dL (9-16); Calcium 8.4 mg/dL (8.4-10.2); Carbon Dioxide 22 mmol/L (22-29); Chloride 108 mmol/L (96-108); Creatinine Clr Calc Pharmacy 52.6; Estimated Glomerular Filt Rate 54; Potassium 4.9 mmol/L (3.3-5.1); Sodium 140 mmol/L (135-145); Total Protein 6.3 g/dL (6.5-8.0)
--- NOTE | 2025-05-29 07:32 | P.PNIM_ITS ---
Subjective Subjective Date of Service: 05/29/25 Interval History: f/u on KELVIN, diarrhea no more diarreha, nause or vomitting and tolerating regular diet Physical Exam 2 Vital Signs: Vital Signs: Last Vital Signs Temp 98.4 F 05/29/25 07:16 Pulse 84 05/29/25 07:16 Resp 20 05/29/25 07:16 BP 142/83 H 05/29/25 07:16 Pulse Ox 97 05/29/25 07:16 O2 Del Method Room Air 05/29/25 07:16 Oxygen Flow Rate 2 05/28/25 10:16 BMI result Body Mass Index 21.5 General: AO X 3, no acute distress Resp: CTA bilateral CVS: S1,S2,RRR GI: +BS, NT, no distention Skin: No rash Neuro: motor grossly intact Psych: appropriate affect Objective Data Active Medications Acetaminophen (Acetaminophen 325 Mg Tablet) 650 mg PO Q6H PRN PRN Reason: Pain, Mild 1-3,fever,headache Last Admin: 05/29/25 01:07 Dose: 650 mg Documented By: SANTY Calcium Carbonate (Calcium Carbonate 750 Mg Tab.Chew) 750 mg PO Q4H PRN PRN Reason: Heartburn Last Admin: 05/29/25 01:05 Dose: 750 mg Documented By: SANTY Enoxaparin Sodium (Enoxaparin Sodium 30 Mg/0.3 Ml Syringe) 30 mg SUBCUT Q24H [facility] Last Admin: 05/28/25 16:08 Dose: 30 mg Documented By: GALEN Insulin Human Lispro (Insulin Lispro 100 Unit/Ml 3 Ml Vial) 0 unit SUBCUT [facility]; Protocol Last Admin: 05/28/25 21:38 Dose: 2 unit Documented By: SANTY Magnesium Hydroxide (Milk Of Magnesia 30 Ml Oral.Susp) 30 ml PO DAILY PRN PRN Reason: Constipation Melatonin (Melatonin 3 Mg Tablet) 6 mg PO BEDTIME PRN PRN Reason: Insomnia Last Admin: 05/29/25 01:12 Dose: 6 mg Documented By: SANTY Sodium Chloride (0.9 % Sodium Chloride Flush 3 Ml Syringe) 3 ml IVFLUSH QSHIFT [facility] Last Admin: 05/28/25 21:38 Dose: Not Given Documented By: SANTY Non-Admin Reason: IV Running Labs 05/29/25 06:33 05/29/25 06:33 Labs: Laboratory Results - last 24 hr 05/28/25 05/28/25 05/28/25 10:24 10:50 13:22 MCV 80.7 MCH 27.4 MCHC 34.0 RDW 19.2 H Plt Count 217 MPV 10.1 Immature Gran % (Auto) 0.5 H Neut % (Auto) 79.5 H Lymph % (Auto) 12.0 L [place] % (Auto) 7.6 Eos % (Auto) 0.2 Baso % (Auto) 0.2 Lymph # (Auto) 1.6 [place] # (Auto) 1.0 Eos # (Auto) 0.0 Baso # (Auto) 0.0 Abs Immat Gran (auto) 0.06 H Absolute Neuts (auto) 10.3 H Absolute Nucleated RBC 0.000 Nucleated RBC % (auto) 0.0 Anion Gap 16 Estim Creat Clear Calc 27.4 Estimated GFR 31 POC Glucose 205 H 119 H Random Glucose 222 H Calcium 8.5 Total Bilirubin 0.5 AST 30 ALT 24 Alkaline Phosphatase 114 C-Reactive Protein 0.78 H B-Natriuretic Peptide 29 Total Protein 6.8 Albumin 3.8 Triglycerides 283 H Lipase 218 H Urine Color Urine Appearance Urine pH Ur Specific [place] Urine Protein Urine Glucose (UA) Urine Ketones Urine Blood Urine Nitrite Ur Leukocyte Esterase Urine RBC Urine WBC Ur Squamous Epith Cells Urine Bacteria Hyaline Casts Ethyl Alcohol < 10 Influenza Type A (PCR) NEGATIVE Influenza Type B (PCR) NEGATIVE RSV RNA Qual (PCR) NEGATIVE SARS-CoV-2 RNA (RT-PCR) NEGATIVE 05/28/25 05/28/25 05/28/25 14:40 14:44 16:51 MCV MCH MCHC RDW Plt Count MPV Immature Gran % (Auto) Neut % (Auto) Lymph % (Auto) [place] % (Auto) Eos % (Auto) Baso % (Auto) Lymph # (Auto) [place] # (Auto) Eos # (Auto) Baso # (Auto) Abs Immat Gran (auto) Absolute Neuts (auto) Absolute Nucleated RBC Nucleated RBC % (auto) Anion Gap Estim Creat Clear Calc Estimated GFR POC Glucose 101 201 H Random Glucose Calcium Total Bilirubin AST ALT Alkaline Phosphatase C-Reactive Protein B-Natriuretic Peptide Total Protein Albumin Triglycerides Lipase Urine Color Dark Yellow Urine Appearance Clear Urine pH 6.0 Ur Specific [place] 1.015 Urine Protein 300 (3+) H Urine Glucose (UA) Negative Urine Ketones Trace Urine Blood Negative Urine Nitrite Negative Ur Leukocyte Esterase Negative Urine RBC 0-2 Urine WBC 0-5 Ur Squamous Epith Cells 0-2 Urine Bacteria None Seen Hyaline Casts 11-20 Ethyl Alcohol Influenza Type A (PCR) Influenza Type B (PCR) RSV RNA Qual (PCR) SARS-CoV-2 RNA (RT-PCR) 05/28/25 05/29/25 05/29/25 21:25 06:33 07:04 MCV 82.8 MCH 27.2 MCHC 32.8 RDW 19.5 H Plt Count 192 MPV 10.3 Immature Gran % (Auto) Neut % (Auto) Lymph % (Auto) [place] % (Auto) Eos % (Auto) Baso % (Auto) Lymph # (Auto) [place] # (Auto) Eos # (Auto) Baso # (Auto) Abs Immat Gran (auto) Absolute Neuts (auto) Absolute Nucleated RBC 0.000 Nucleated RBC % (auto) 0.0 Anion Gap 15 Estim Creat Clear Calc 52.6 Estimated GFR 54 POC Glucose 174 H 169 H Random Glucose 184 H Calcium 8.4 Total Bilirubin 0.3 AST 34 ALT 22 Alkaline Phosphatase 111 C-Reactive Protein B-Natriuretic Peptide Total Protein 6.3 L Albumin 3.4 L Triglycerides Lipase Urine Color Urine Appearance Urine pH Ur Specific [place] Urine Protein Urine Glucose (UA) Urine Ketones Urine Blood Urine Nitrite Ur Leukocyte Esterase Urine RBC Urine WBC Ur Squamous Epith Cells Urine Bacteria Hyaline Casts Ethyl Alcohol Influenza Type A (PCR) Influenza Type B (PCR) RSV RNA Qual (PCR) SARS-CoV-2 RNA (RT-PCR) Assessment and Plan (1) Acute kidney injury: Status: Acute (2) CKD (chronic kidney disease) stage 1, GFR 90 ml/min or greater: Status: Acute Plan 49 yo M with multiple medical problems presenting with 3 days of generalized malaise + abdomina pain/diarrhea/back pain. Found to have hypoK + KELVIN. Clinically appears dehydrated. Will be admitted for further treatment. KELVIN on CKD3,d/t dehydration from diarrhea, treated with IVF and resolved Scr 2.28 to 1.39 Hypokalemia Secondary to GI losses, resolved. K 4.9 Diarrhea Abundant stool in the large intestine, question overflow However does have sick contacts in her grandson. We will check stool studies Ileus Due to above Should improve with hydration Chronic HFpEF hold diuretics and ARB continue other baseline meds as appropriate DM resume orals, use POC + sliding scale HTN, BP better restart Norvasc and Metoprolol, hold Hydralazine HLD Lipitor Full Code DVT pptx - lovenox dispo: possible dc later today Quality Stroke Does the patient have a stroke diagnosis?: No VTE Prior VTE?: No VTE Risk Level:: Medical - moderate - high VTE Device Contraindication: N/A - Device Ordered VTE Drug Contraindication: N/A - Med Ordered
[2025-05-29] MEDS: Metoprolol Succinate ER 100 MG TAB.ER.24H PO (07:50)
[2025-05-29] MEDS: Aspirin Enteric Coated 81 MG TABLET.DR PO (07:50)
[2025-05-29] MEDS: Ferrous Sulfate 324 MG TABLET.DR PO (07:50)
[2025-05-29] MEDS: Nicotine 21 MG PATCH.TD24 TRANSDERMA (07:51)
--- NOTE | 2025-05-29 10:23 | MHC.CM.PN ---
Pt. lives alone, he has supportive services from [facility] and [facility]. HCP is on file and confirmed: Danny. He does not currently use DME. He does not currently have a NURSING HOME SOCIAL WORKER but is working on getting one with [facility]. He may need assistance with transport home at DC, DCP; home, resume services. CM to follow for DC needs.
--- NOTE | 2025-05-29 10:31 | P.DS_ITS ---
DS: Providers Provider Date of Service: 05/29/25 Date of admission: 05/28/25 12:47 Date of discharge: 05/29/25 Primary care physician: Zari Henry MD DS: Diagnosis Discharge Diagnosis (1) Acute kidney injury: Status: Acute (2) CKD (chronic kidney disease) stage 1, GFR 90 ml/min or greater: Status: Acute DS: Summary Hospital Course Hospital Course: admission hpi Chief Complaint: feeling unwell The patient is a 49-year-old male with a past medical history of multiple medical problems including CHF, hypertension, depression, COPD, YARELIS on CPAP, hyperlipidemia, type 2 diabetes, peripheral arterial disease who presents to the emergency room with a several day history of generalized malaise. The patient reports associated nausea without vomiting. He reports multiple bouts of diarrhea. He reports feeling sweaty but denies any objective fevers. He reports poor oral intake due to his nausea. He denies any bleeding. He reports compliance with his medications during this time including diuretics. Upon further questioning the patient does report possible sick contact with his grandson whom he saw about 2 days prior to the beginning of his symptoms. Reports that his grandson may have had diarrhea. He denies any recent antibiotic use. Furthermore, the patient reports back pain and abdominal pain. He reports that his abdominal pain is crampy in nature and relieved by bowel movements. He reports his back pain to be paraspinal and thinks may be related to prolonged lying. He denies any anginal symptoms. He denies any cough or shortness of breath. In the emergency room the patient was found to have acute kidney injury as well as hypokalemia. He has not had any diarrhea since arrival. He was treated with IV morphine for his pain given p.o. potassium as well as 1 L of fluids with 40 KCL over 4 hours which is currently infusing. He reports improvement in his nausea and is requesting a diet. He currently denies any abdominal pain or back pain. Hospital course 49 yo M with multiple medical problems presenting with 3 days of generalized malaise + abdomina pain/diarrhea/back pain. Found to have hypoK + KELVIN. Clinically appears dehydrated. Will be admitted for further treatment. KELVIN on CKD3,d/t dehydration from diarrhea, treated with IVF and resolved Scr 2.28 to 1.39, diarreha and n/v resolved and he is tolerating regular diet. Hypokalemia Secondary to GI losses, resolved. K 4.9 Diarrhea, n/v likely from gastrointeritis Abundant stool in the large intestine, question overflow However does have sick contacts in her grandson. Clinically resolved and no furter testing needed at this timne Ileus Due to above Clinically resolved Chronic HFpEF hold diuretics and ARB for another day and repeat labs on outpatient basis DM resume orals, use POC + sliding scale HTN, BP better restart Norvasc and Metoprolol, hold Hydralazine and Torsemide until tomorrow HLD Lipitor Full Code DVT pptx - lovenox dispo: possible dc later today Time Attestation Discharge Coordination Time (in mins): 45 Quality: Safe Use of Opioids Does Pt have an Active Cancer Diagnosis on the Problem List?: No Quality: Stroke Does the patient have a stroke diagnosis?: No Physical Exam Vital Signs: Vital Signs: Last Vital Signs Temp 98.4 F 05/29/25 07:16 Pulse 84 05/29/25 07:16 Resp 20 05/29/25 07:16 BP 142/83 H 05/29/25 07:16 Pulse Ox 97 05/29/25 07:16 O2 Del Method Room Air 05/29/25 07:16 Oxygen Flow Rate 2 05/28/25 10:16 BMI result Body Mass Index 21.5 DS: Data Data Completed and Pending Labs on day of discharge: Laboratory Results - last 24 hr 05/28/25 05/28/25 05/28/25 10:24 10:50 13:22 WBC 13.0 H RBC 4.30 L Hgb 11.8 L Hct 34.7 L MCV 80.7 MCH 27.4 MCHC 34.0 RDW 19.2 H Plt Count 217 MPV 10.1 Immature Gran % (Auto) 0.5 H Neut % (Auto) 79.5 H Lymph % (Auto) 12.0 L [place] % (Auto) 7.6 Eos % (Auto) 0.2 Baso % (Auto) 0.2 Lymph # (Auto) 1.6 [place] # (Auto) 1.0 Eos # (Auto) 0.0 Baso # (Auto) 0.0 Abs Immat Gran (auto) 0.06 H Absolute Neuts (auto) 10.3 H Absolute Nucleated RBC 0.000 Nucleated RBC % (auto) 0.0 Sodium 137 Potassium 2.8 L* Chloride 103 Carbon Dioxide 21 L Anion Gap 16 BUN 26 H Creatinine 2.28 H Estim Creat Clear Calc 27.4 Estimated GFR 31 POC Glucose 205 H 119 H Random Glucose 222 H Calcium 8.5 Total Bilirubin 0.5 AST 30 ALT 24 Alkaline Phosphatase 114 Troponin I High Sens 22.4 D C-Reactive Protein 0.78 H B-Natriuretic Peptide 29 Total Protein 6.8 Albumin 3.8 Triglycerides 283 H Lipase 218 H Urine Color Urine Appearance Urine pH Ur Specific Union Urine Protein Urine Glucose (UA) Urine Ketones Urine Blood Urine Nitrite Ur Leukocyte Esterase Urine RBC Urine WBC Ur Squamous Epith Cells Urine Bacteria Hyaline Casts Ethyl Alcohol < 10 Influenza Type A (PCR) NEGATIVE Influenza Type B (PCR) NEGATIVE RSV RNA Qual (PCR) NEGATIVE SARS-CoV-2 RNA (RT-PCR) NEGATIVE 05/28/25 05/28/25 05/28/25 14:40 14:44 16:51 WBC RBC Hgb Hct MCV MCH MCHC RDW Plt Count MPV Immature Gran % (Auto) Neut % (Auto) Lymph % (Auto) [place] % (Auto) Eos % (Auto) Baso % (Auto) Lymph # (Auto) [place] # (Auto) Eos # (Auto) Baso # (Auto) Abs Immat Gran (auto) Absolute Neuts (auto) Absolute Nucleated RBC Nucleated RBC % (auto) Sodium Potassium Chloride Carbon Dioxide Anion Gap BUN Creatinine Estim Creat Clear Calc Estimated GFR POC Glucose 101 201 H Random Glucose Calcium Total Bilirubin AST ALT Alkaline Phosphatase Troponin I High Sens C-Reactive Protein B-Natriuretic Peptide Total Protein Albumin Triglycerides Lipase Urine Color Dark Yellow Urine Appearance Clear Urine pH 6.0 Ur Specific [place] 1.015 Urine Protein 300 (3+) H Urine Glucose (UA) Negative Urine Ketones Trace Urine Blood Negative Urine Nitrite Negative Ur Leukocyte Esterase Negative Urine RBC 0-2 Urine WBC 0-5 Ur Squamous Epith Cells 0-2 Urine Bacteria None Seen Hyaline Casts 11-20 Ethyl Alcohol Influenza Type A (PCR) Influenza Type B (PCR) RSV RNA Qual (PCR) SARS-CoV-2 RNA (RT-PCR) 05/28/25 05/29/25 05/29/25 21:25 06:33 07:04 WBC 8.2 RBC 4.08 L Hgb 11.1 L Hct 33.8 L MCV 82.8 MCH 27.2 MCHC 32.8 RDW 19.5 H Plt Count 192 MPV 10.3 Immature Gran % (Auto) Neut % (Auto) Lymph % (Auto) [place] % (Auto) Eos % (Auto) Baso % (Auto) Lymph # (Auto) [place] # (Auto) Eos # (Auto) Baso # (Auto) Abs Immat Gran (auto) Absolute Neuts (auto) Absolute Nucleated RBC 0.000 Nucleated RBC % (auto) 0.0 Sodium 140 Potassium 4.9 D Chloride 108 Carbon Dioxide 22 Anion Gap 15 BUN 18 H Creatinine 1.39 Estim Creat Clear Calc 52.6 Estimated GFR 54 POC Glucose 174 H 169 H Random Glucose 184 H Calcium 8.4 Total Bilirubin 0.3 AST 34 ALT 22 Alkaline Phosphatase 111 Troponin I High Sens C-Reactive Protein B-Natriuretic Peptide Total Protein 6.3 L Albumin 3.4 L Triglycerides Lipase Urine Color Urine Appearance Urine pH Ur Specific [place] Urine Protein Urine Glucose (UA) Urine Ketones Urine Blood Urine Nitrite Ur Leukocyte Esterase Urine RBC Urine WBC Ur Squamous Epith Cells Urine Bacteria Hyaline Casts Ethyl Alcohol Influenza Type A (PCR) Influenza Type B (PCR) RSV RNA Qual (PCR) SARS-CoV-2 RNA (RT-PCR) Discharge Plan Discharge Anticipated Discharge Date/Time: 05/29/25 10:31 Patient Disposition: Home, Self-Care Discharge Diagnosis: KELVIN, dehydration Referrals: Zari Henry MD [Primary Care Provider, Internal Medicine] - 1 Week Discharge Medications: Continued hydralazine 100 mg tablet 100 mg PO TID 30 Days Qty: 90 5RF trazodone 50 mg tablet 100 mg PO BEDTIME escitalopram oxalate 10 mg tablet 10 mg PO DAILY atorvastatin 40 mg tablet 40 mg PO DAILY metoprolol succinate 100 mg tablet extended release 24 hr 100 mg PO DAILY magnesium oxide 400 mg (241.3 mg magnesium) Tablet 400 mg PO BIDPC Qty: 60 0RF amlodipine 5 mg tablet 10 mg PO DAILY omeprazole 40 mg capsule,delayed release(DR/EC) 40 mg PO DAILY@0630 sucralfate 1 gram tablet 1 g PO QID ferrous sulfate [iron] 325 mg (65 mg iron) tablet 325 mg PO DAILY Qty: 30 0RF morphine 15 mg tablet 15 mg PO Q8H PRN (Reason: pain) Qty: 10 0RF Rx Instructions: Partial Fill upon patient request. albuterol sulfate 90 mcg/actuation HFA aerosol inhaler 2 puff inhalation Q4H PRN (Reason: bronchospasm) (DME) Omnipod 5 G6 Intro Kit (Gen 5) Cartridge SUBCUT insulin lispro 100 unit/mL solution 100 unit DIRECTED Rx Instructions: INJECT up to 100 UNITS DIRECTED SEE ADMIN INSTRUCTIONS. USE PER INSULIN PUMP nicotine 21 mg/24 hr Patch 24 Hour 21 mg transdermal DAILY Qty: 90 0RF torsemide 20 mg tablet 40 mg PO BEDTIME torsemide 20 mg tablet 60 mg PO DAILY aspirin 81 mg tablet,delayed release (DR/EC) 81 mg PO DAILY Discontinued ibuprofen 400 mg tablet 400 mg PO TID PRN (Reason: fever or pain) Qty: 30 0RF Diet: Advance to usual diet Activity on Discharge: As tolerated Stand Alone Forms: Patient Portal Discharge page Print Language: Solomon Islander Care Plan Goals: recovery from nasuea, vomiting diarrhea, and renal failure Health Concerns: same as above Plan of Treatment: resume your medication in a day follow up with your docotor in a week Assessment: see elanae
[2025-05-29 10:57] VITALS: BP 138/76; PULSE 72; RESP 18; TEMP 36.8; O2SAT 98
[2025-05-29 11:02] LABS: Glucose, Whole Blood 193 mg/dL (60-115)
[2025-05-29 14:51] VITALS: BP 132/86
--- NOTE | 2025-05-29 15:28 | MHC.CM.PN ---
Pt has been medically cleared, he will go home via Lyft, plan is self care.
--- NOTE | 2025-05-30 18:38 | P.CDIM_ITS ---
PROVIDER RESPONSE TEXT: To clarify, the appropriate diagnosis supported by the clinical indicators: Ileus: adynamic QUERY TEXT: PHYSICIAN'S DOCUMENTATION REQUEST Date of Query: 05/29/2025 10:28 AM EDT Patient Name: Ciara Quiroga Admit Date: 05/28/2025 Dear Roger Stephen MD, A review of the medical record indicates additional documentation may be needed. Please review below and update the documentation accordingly. Clinical Indicators: Progress note 05/29/25 - Presented with generalized malaise, abdominal pain/diarrhea/back pain. Clinically appears to be dehydrated. Ileus, should improve with hydration. Abundant stool in the large intestine. Based on the above, could you clarify any further specificity to the documented Ileus? Ileus Obstructive, paralytic, adynamic, neurogenic etc. Other specifics Other (explain) Clinically unable to determine (explain) Thank you, Vale Vergara, CCS, CDIS Use of terms such as suspected, likely, concern for, or probable (associated with a specific diagnosis that is being evaluated, monitored, or treated as if it exists) are acceptable and can be coded in the inpatient setting, when documented at the time of discharge. Please use your independent medical judgment in providing your response. THIS QUERY IS PART OF THE PERMANENT MEDICAL RECORD
== END 2025-05-29 15:28 | disposition home or self-care (01) | DRG 249 ==
LOC: HO.ED 13:26 → HO.EDOVER 13:28 → HO.IMC 19:11
PROVIDERS: Family Medicine; Admitting Provider Internal Medicine; Emergency Provider Emergency Medicine; PCP Internal Medicine; Visit Provider Internal Medicine
DX: K52.9 Noninfective gastroenteritis and colitis, unspecified (principal); N17.9 Acute kidney failure, unspecified; I13.0 Hypertensive heart and chronic kidney disease with heart failure and stage 1 through stage 4 chronic kidney disease, or unspecified chronic kidney disease; I50.32 Chronic diastolic (congestive) heart failure; E11.22 Type 2 diabetes mellitus with diabetic chronic kidney disease; E11.51 Type 2 diabetes mellitus with diabetic peripheral angiopathy without gangrene; K56.0 Paralytic ileus; E78.5 Hyperlipidemia, unspecified; E87.6 Hypokalemia; E86.0 Dehydration; N18.30 Chronic kidney disease, stage 3 unspecified; F17.210 Nicotine dependence, cigarettes, uncomplicated; Z20.822 Contact with and (suspected) exposure to COVID-19; Z71.6 Tobacco abuse counseling; Z79.4 Long term (current) use of insulin; Z79.82 Long term (current) use of aspirin; Z79.899 Other long term (current) drug therapy
CPT/HCPCS: 36415; 71045; 74176; 80053; 80307; 81001; 82947; 83690; 83880; 84478; 84484; 85025; 85027; 86140; 87637; 93005; 99285; J1650; J2270; J2405; J3480; J7120

== ENCOUNTER → 2025-05-28 10:26 | Outpatient (BNV) | payer OTHER, SELFPAY | PROVIDERS: Admitting Provider Internal Medicine; Emergency Provider Emergency Medicine; PCP Internal Medicine; Visit Provider Internal Medicine Cardiovascular Disease | DX: R00.0 Tachycardia, unspecified (principal) | CPT/HCPCS: 93010 ==

== ENCOUNTER → 2025-05-28 12:47 | Outpatient (BNV) | payer OTHER, SELFPAY | PROVIDERS: Admitting Provider Internal Medicine; Emergency Provider Emergency Medicine; PCP Internal Medicine; Visit Provider Family Medicine | DX: N17.9 Acute kidney failure, unspecified (principal); N18.1 Chronic kidney disease, stage 1 | CPT/HCPCS: 99499 ==

== ENCOUNTER 2025-06-13 09:17 | Inpatient (IN) | payer OTHER, SELFPAY ==
[2025-06-13] VITALS (12 sets, daily range): BP systolic 165–213; BP diastolic 80–103; PULSE 82–117; RESP 14–20; TEMP 36.6–37.3; O2SAT 96–99; BMI 21.3
--- NOTE | ~2025-06-13 | XR_ITS ---
EXAMINATION: XR CHEST 2 VIEWS HISTORY: CP, dyspnea COMPARISON: Comparison is made with the prior examination dated 04/28/2025. FINDINGS: PA and lateral views of the chest are submitted. The lungs are expanded and clear. There is no pleural effusion, pneumothorax, or pulmonary vascular congestion. The heart is normal in size. The bones are intact. XR/XR chest 2V IMPRESSION: No acute cardiopulmonary abnormality. Electronically signed by: Yevgeniy Jhaveri MD 06/13/2025 10:16 AM EDT
--- NOTE | ~2025-06-13 | US_ITS ---
EXAMINATION: US ABDOMEN LIMITED CLINICAL INFORMATION: Elevated transaminases. Elevated alkaline phosphatase. Chest pain. . COMPARISON: Correlated to CT dated May 28, 2025. TECHNIQUE: Real-time ultrasound of the right upper quadrant abdomen using grayscale technique. Limited exam. FINDINGS: PANCREAS: No peripancreatic fluid collections. LIVER: Liver measures 15 cm. Coarse echotexture. No gross solid or cystic lesion detected by the technologist. No nodular surface. No intrahepatic biliary ductal dilatation. GALLBLADDER: Fluid-filled gallbladder without distention. No pericholecystic fluid collection or gallbladder wall thickening. COMMON BILE DUCT: 6 mm. RIGHT KIDNEY: 12 cm. Normal echotexture. Normal renal cortical thickness. No hydronephrosis. There is a 1.6 cm anechoic lesion at the corticomedullary junction of the upper pole without septations or flow on color Doppler interrogation.. FREE FLUID: None. US/US abdomen limited IMPRESSION: No cholelithiasis. Up to normal limits common bile duct. No hydronephrosis right kidney. 1.6 cm cyst, right kidney. No ascites. Electronically signed by: Jayden Camacho MD 06/13/2025 02:20 PM EDT
--- NOTE | 2025-06-13 09:28 | ECG_ITS ---
Test Reason : dyspnea/hypertension Blood Pressure : */* mmHG Vent. Rate : 102 BPM Atrial Rate : 102 BPM P-R Int : 126 ms QRS Dur : 72 ms QT Int : 348 ms P-R-T Axes : 62 47 51 degrees QTcB Int : 453 ms Sinus tachycardia Otherwise normal ECG When compared with ECG of 28-May-2025 10:52, T wave inversion no longer evident in Anterior leads Referred By: Generic ED Physician Electronically Signed By: Sadiq Rivera
--- NOTE | 2025-06-13 09:31 | ED_ITS ---
HPI - General Adult General Chief complaint: Dyspnea Stated complaint: HYPERTENSION,DIFF BREATHING,CP PER EMS Time Seen by Provider: 06/13/25 09:30 Source: patient, EMS, RN notes reviewed and old records reviewed Mode of arrival: EMS Limitations: no limitations History of Present Illness ED Provider: Maggy HPI narrative: Patient is a 49-year-old male with history of DM, HLD, HTN, YARELIS with CPAP use, COPD, smoking, alcohol abuse, CKD, HFpEF presenting to the emergency department with worsening dyspnea since yesterday, chest pressure in pain. VNA administers his medications. Also complains of nausea, diarrhea and nonproductive cough. Denies any recent weight gain or lower extremity edema. Nitro paste applied prior to arrival by EMS, patient denies any change in symptoms. He denies recent fevers. MD complaint: dyspnea Onset (ago): day(s) Related Data Home Medications ?Medication ?Instructions ?Recorded ?Confirmed escitalopram oxalate 10 mg tablet 10 mg PO DAILY 08/0105/28/25 trazodone 50 mg tablet 100 mg PO BEDTIME 08/01/22 0 05/28/25 aspirin 81 mg tablet,delayed 81 mg PO DAILY 10/06/22 0 05/28/25 release atorvastatin 40 mg tablet 40 mg PO DAILY 10/06/2205/01 metoprolol succinate 100 mg 100 mg PO DAILY 10/06/22 0 05/28/25 tablet,extended release 24 hr albuterol sulfate 90 mcg/actuation 2 puff inhalation Q 4H PRN 04/26/24 05/28/25 aerosol inhaler bronchospasm amlodipine 5 mg tablet 10 mg PO DAILY 06/02/2405/01 insulin pump cartridge,automated 06/11/24 03/14/25 dose,BT with controller subcutaneous (Omnipod 5 G6 Intro Kit (Gen 5) subcutaneous cartridge with controller) omeprazole 40 mg capsule,delayed 40 mg PO DAILY@0630 0 07/15/24 05/28/25 release insulin lispro 100 unit/mL 100 unit DIRECTED 05/28/25 subcutaneous solution sucralfate 1 gram tablet 1 g PO QID 01/14/25 05/28/25 torsemide 20 mg tablet 40 mg PO BEDTIME 05/28/25 torsemide 20 mg tablet 60 mg PO DAILY 05/28/2505/01 Previous Rx's ?Medication ?Instructions ?Recorded magnesium oxide 400 mg (241.3 mg 400 mg PO BIDPC #60 t abs 08/20/22 magnesium) tablet hydralazine 100 mg tablet 100 mg PO TID 30 days #90 ta bs 05/09/23 nicotine 21 mg/24 hr daily 21 mg transdermal DAILY #90 ea 11/26/24 transdermal patch ferrous sulfate 325 mg (65 mg 325 mg PO DAILY #30 tabs 01/15/25 iron) tablet (iron) morphine 15 mg immediate release 15 mg PO Q8H PRN pain #10 tabs 03/20/25 tablet Allergies Allergy/AdvReac Type Severity Reaction Status Date / Time dulaglutide (From [facility]) Allergy Unknown Verified 06/13/25 09:41 metformin (METFORMIN) AdvReac Mild DIARRHEA, Verified 06/13/25 09:41 nausea and vomiting Review of Systems 2 Review of Systems: As per HPI [facility] Past Medical History Medical History Tobacco use CKD (chronic kidney disease) stage 1, GFR 90 ml/min or greater YARELIS (obstructive sleep apnea) Acute on chronic diastolic (congestive) heart failure KELVIN (acute kidney injury) Chronic heart failure with preserved ejection fraction (HFpEF) Depression Acute on chronic anemia Anxiety HLD (hyperlipidemia) Diabetes HTN (hypertension) Asthma PAD (peripheral artery disease) Surgical History History of esophagogastroduodenoscopy S/P angiogram of extremity Family History Family History Father Alzheimer disease CAD (coronary artery disease) Social History Social History Household Members: None Household Members Other:: 4 Housing: Apartment Do you presently have visiting nurse or other home services: Yes Unable to assess alcohol history related to: Unknown Alcohol intake: current Alcohol intake frequency: 0-2 drinks per day Alcohol type: hard liquor Comment: pt is independent in room Patient Tobacco Use Status: Current everyday Tobacco user Tobacco use type: Cigarette Cigarette Packs Per Day: 1 Cigarettes Per Day: 10 Years Smoked: 33 years e-Cigarette/Vaping Use: Currently Using Second Hand Smoke Exposure: No Substance Use Type: Marijuana Advance Directives: Yes Advance Directives on File: Yes Advance Directives Date on File: 06/21/21 service: No Current occupational status: disabled Physical Exam ED Vital Signs: Vital Signs - 24 hr 06/13/25 09:33 06/13/25 10:24 06/13/25 11:08 Temperature 99.2 F 99.1 F Pulse Rate 88 115 H Respiratory Rate 14 17 Blood Pressure 213/95 H 213/95 H 167/89 H Pulse Oximetry 99 97 Oxygen Delivery Method Room Air Room Air 06/13/25 12:00 06/13/25 14:00 06/13/25 14:00 Temperature Pulse Rate 117 H 94 98 Respiratory Rate 18 18 18 Blood Pressure 168/88 H 197/99 H 197/99 H Pulse Oximetry 97 96 Oxygen Delivery Method Room Air Room Air 06/13/25 15:43 06/13/25 15:51 06/13/25 17:36 Temperature Pulse Rate 100 Respiratory Rate 18 Blood Pressure 195/103 H 185/93 H 184/92 H Pulse Oximetry 97 Oxygen Delivery Method Room Air 06/13/25 17:37 Temperature Pulse Rate Respiratory Rate Blood Pressure 184/92 H Pulse Oximetry Oxygen Delivery Method BMI result Body Mass Index 21.3 Medications Administered Discontinued Medications Generic Name Dose Route Start Last Admin Trade Name Freq PRN Reason Stop Dose Admin Amlodipine Besylate 5 mg 06/13/25 16:30 06/13/25 17:36 Amlodipine Besylate 5 Mg Tablet PO 06/13/25 16:31 5 mg ONCE ONE Administration Protocol Bumetanide 0.5 mg 06/13/25 10:15 06/13/25 10:24 Bumetanide 1 Mg/4 Ml Vial IVPUSH 06/13/25 10:16 0.5 mg ONCE ONE Administration Protocol Diphenhydramine HCl 12.5 mg 06/13/25 15:11 06/13/25 15:45 Diphenhydramine Hcl 50 Mg/Ml Vial IVPUSH 06/13/25 15:12 12.5 mg ONCE ONE Administration Hydralazine HCl 10 mg 06/13/25 15:29 06/13/25 15:43 Hydralazine Hcl 20 Mg/Ml Vial IVPUSH 06/13/25 15:30 10 mg ONCE ONE Administration Protocol Hydralazine HCl 100 mg 06/13/25 16:30 06/13/25 17:37 Hydralazine Hcl 50 Mg Tablet PO 06/13/25 16:31 100 mg ONCE ONE Administration Protocol Magnesium Sulfate 2 gm in 50 mls @ 150 mls/hr 06/13/25 12:59 06/13/25 14:09 Magnesium Sulfate/H2o IV 06/13/25 13:18 Infused ONCE ONE Infusion Lorazepam 2 mg 06/13/25 16:31 06/13/25 17:36 Lorazepam 1 Mg Tablet PO 06/13/25 16:32 2 mg ONCE ONE Administration Metoprolol Succinate 100 mg 06/13/25 16:30 06/13/25 17:39 Metoprolol Succinate Er 100 Mg Tab.Er.24h PO 06/13/25 16:31 100 mg ONCE ONE Administration Protocol Morphine Sulfate 4 mg 06/13/25 14:15 06/13/25 14:21 Morphine Sulfate 4 Mg/Ml Cartridge IVPUSH 06/13/25 14:16 4 mg ONCE ONE Administration Protocol Ondansetron HCl 4 mg 06/13/25 10:26 06/13/25 10:39 Ondansetron Hcl 4 Mg/2 Ml Vial IVPUSH 06/13/25 10:27 4 mg ONCE ONE Administration Medical Decision Making Medical Decision Making MDM Narrative: Patient is a 49-year-old male with history of DM, HLD, HTN, YARELIS with CPAP use, COPD, smoking, alcohol abuse, CKD, HFpEF presenting to the emergency department with worsening dyspnea since yesterday, chest pressure in pain. On exam patient is awake, A+Ox3, hypertensive, VS otherwise WNL, afebrile, normal neurological exam without focal deficits, physical exam findings as above. Given reported symptoms and physical exam findings, initial differential includes but is not limited to CHF exacerbation, pneumonia, COPD exacerbation. Less likely ACS. Labs notable for mildly elevated transaminases and alk phos, hypomagnesemia, slightly elevated BNP. IV magnesium ordered. X-ray chest notable for no pulmonary edema, no pneumonia. Unlikely CHF exacerbation. U/S RUQ without evidence of cholecystitis or obstructing stone. My interpretation is in agreement with the radiologist's interpretation. Patient now stating that he did not take his BP medications this morning as his visiting nurse called 911 prior to him taking his medications. He also admits to last drinking alcohol 2 days ago, raising concern for symptoms being due to alcohol withdrawal. BP meds, PO lorazepam, and CIWA scale ordered. CIWA of 15, will admit for alcohol withdrawal, accepted by Dr. Stephen. Differential Diagnosis Differential Diagnoses: The differential diagnosis associated with the presentation includes as per [facility] Admission/Observation Consideration of admission/observation: Escalation of care including admission/observation considered Consult Healthcare Provider Management of the patient was discussed with: Hospitalist Lab Data [facility] Lab Attestation statement: I reviewed the patient's lab results. as per [facility] 06/13/25 09:53 06/13/25 09:53 Labs: Lab Results 06/13/25 Range/Units 09:53 WBC 10.0 (4.8-10.8) X10*3/uL RBC 3.94 L (4.60-5.80) X10*6/uL Hgb 11.1 L (14.0-18.0) g/dl Hct 31.8 L (42.0-52.0) % MCV 80.7 (80.0-98.0) fL MCH 28.2 (27.0-33.0) pg MCHC 34.9 (31.0-36.0) g/dl RDW 19.0 H (11.0-16.0) % Plt Count 224 (160-400) X10*3/uL MPV 9.7 (9.4-12.4) fL Immature Gran % (Auto) 0.5 H (0.0-0.4) % Neut % (Auto) 85.3 H (45-73) % Lymph % (Auto) 7.3 L (20-40) % [place] % (Auto) 6.2 (2-11) % Eos % (Auto) 0.4 (0-4) % Baso % (Auto) 0.3 (0-2) % Lymph # (Auto) 0.7 L (1.2-4.9) X10*3/uL [place] # (Auto) 0.6 (0.1-1.2) X10*3/uL Eos # (Auto) 0.0 (0.0-0.4) X10*3/uL Baso # (Auto) 0.0 (0.0-0.2) X10*3/uL Abs Immat Gran (auto) 0.05 H (0.00-0.03) X10*3/uL Absolute Neuts (auto) 8.5 H (2.0-8.3) x10*3/uL Absolute Nucleated RBC 0.000 (0.0-0.012) X10*3/uL Nucleated RBC % (auto) 0.0 (0.0-0.2) /100WBC PT 11.0 (10.9-12.4) SEC INR 1.0 (0.9-1.1) Sodium 138 (135-145) mmol/L Potassium 4.7 (3.3-5.1) mmol/L Chloride 105 (96-108) mmol/L Carbon Dioxide 18 L (22-29) mmol/L Anion Gap 20 (12-20) BUN 12 (9-16) mg/dL Creatinine 0.94 (0.5-1.4) mg/dL Estim Creat Clear Calc 77.3 Estimated GFR > 60 Random Glucose 265 H (60-115) mg/dL Calcium 8.2 L (8.4-10.2) mg/dL Magnesium 1.5 L (1.6-2.6) mg/dL Total Bilirubin 0.7 (0.0-1.0) mg/dL AST 95 H (5-37) U/L ALT 51 H (0-40) U/L Alkaline Phosphatase 127 H (39-117) U/L Troponin I High Sens 7.2 D (<3.5-35.0) ng/L B-Natriuretic Peptide 102 H (<100) pg/mL Total Protein 6.5 (6.5-8.0) g/dL Albumin 3.5 (3.5-5.0) g/dL Ethyl Alcohol < 10 mg/dL Influenza Type A (PCR) NEGATIVE (Negative) Influenza Type B (PCR) NEGATIVE (Negative) RSV RNA Qual (PCR) NEGATIVE (Negative) SARS-CoV-2 RNA (RT-PCR) NEGATIVE (Negative) Independent Interpretation I performed an independent interpretation of an: Plain X-Ray and Ultrasound Interpretation: X-ray chest notable for no pulmonary edema, no pneumonia. U/S RUQ without evidence of cholecystitis or obstructing stone. Radiology Impression Discussion of test interpretation with radiology: I have reviewed the radiologist's reading. Radiologist Impression: XR/XR chest 2V IMPRESSION: No acute cardiopulmonary abnormality. US/US abdomen limited IMPRESSION: No cholelithiasis. Up to normal limits common bile duct. No hydronephrosis right kidney. 1.6 cm cyst, right kidney. No ascites. External Record Review External record reviewed: Inpatient record, Office record and Outpatient record Critical Care Time Critical Care Time Critical Care Time: Yes Total Critical Care Time: 39 Attestation: I have personally provided critical care time exclusive of time spent on separately billable procedures. Time includes review of lab data, radiology results, discussion with consultants, and monitoring for potential decompensation. Intervention performed as documented. Discharge Plan Discharge Clinical Impression: Alcohol withdrawal, Hypomagnesemia Patient Disposition: Admitted As Inpatient Print Language: Kyrgyz
--- OUTSIDE RECORDS SUMMARY | 2025-06-13 09:56 | XMS_ITS | Encounter Summary ---
Author Organization [facility] Address [address] [place] [address] Care Team Providers Care Wood Milling Machine Tender Name Role Phone Zari Henry MD Primary Care Provider Encounter Details Date Type Department Care Team (Late Contact Info) Description 02/14/2025 Billing Patient Not Present Adult Medicine [facility] [address] [place] [phone] Zari Henry MD [address] [place] [address] Social History Tobacco Use Types Packs/Day Years [...] Department Care Team (Late Contact Info) Description 07/01/2025 1:30 PM EDT Consult Orthopedic Surgery - [place] [address] [place] [phone] Rivas Norman, DPGracie [address] [facility] [address] [place] [address] 08/25/2025 2:30 PM EDT Office Visit Adult Medicine [facility] [address] [place] [address] Nadege Begum PA [address] [place] [address] 09/08/2025 2:15 PM EST [facility] [address] [place] [address] Nisa Machado MD [address] [facility] [address] [place] [address] documented as of this encounter Visit Diagnoses Not on filedocumented in this encounter Care Teams Wood Milling Machine Tender Relationship Specialty Start Date End Date Zari Henry MD [address] [place] [id number] PCP - General Internal Medicine 08/17/21 documented as of this encounter
--- OUTSIDE RECORDS SUMMARY | 2025-06-13 09:56 | XMS_ITS | Clinical Summary ---
Author Organization [facility] Address [address] [place] [address] Care Team Providers Care Intake Rn Name Role Phone Zari Henry MD Primary Care Provider [phone] Allergies Active Allergy Reactions Criticality Noted Date [...] age to complete this topic Care Teams Intake Rn Relationship Specialty Start Date End Date Zari Henry MD PCP - General Internal Medicine 01/21/22
--- OUTSIDE RECORDS SUMMARY | 2025-06-13 09:56 | XMS_ITS | Clinical Summary ---
Author Organization [facility] Address [address] [address] Phone Care Team Providers Care Testing Projects Administrator Name Role Phone Zari Henry MD Primary Care Provider [phone] Allergies Active Allergy Reactions Criticality Noted Date [...] Office Visit [facility] [address] [address] Jong Hall MD [address] [address] Health Maintenance Due Date Last [...] Creatinine, Ur 378.0 Not Estab. mg/dL [facility] Albumin, Urine 1,229.7 Not Estab. ug/mL [facility] Comment: Results confirmed on dilution. Albumin/Creatin ine Ratio 325(H) 0 - 29 mg/g creat [facility] Comment: Normal: 0 - 29 Moderately increased: 30 - 300 Severely increased: >300 05/20/2025 11:2 1 AM EDT 05/20/2025 Jong Hall MD LAB URINE ORDERABLES Final Resul t [email or web address] [address] [place] [address] * (ABNORMAL) Vitamin D 25 Hydroxy (05/20/2025 11:21 AM EDT) Vitamin D, 25-OH, Total 10.8(L) 30.0 - 100.0 ng/mL [facility] Comment: Vitamin D deficiency has been defined by the [place] [employer] and an Endocrine Society practice guideline as a level of serum 25-OH vitamin D less than 20 ng/mL (1,2). The Endocrine Society went on to further define vitamin D insufficiency as a level between 21 and 29 ng/mL (2). 1. IOM ([place] [employer]). 2010. Dietary reference intakes for calcium and D. [facility]: The National Academies Press. 2. Rochelle MF, Vickie JAMES, Ramses DOYLE, et al. Evaluation, treatment, and prevention of vitamin D deficiency: an Endocrine Society clinical practice guideline. JCEM. 2010; 96(7):1911-30. 05/20/2025 11:2 1 AM EDT 05/20/2025 us Jong Hall MD LAB BLOOD ORDERABLES Final Resul t [email or web address] [address] [place] [address] * PTH, Intact (05/20/2025 11:21 AM EDT) PTH 43 15 - 65 pg/mL [facility] 05/20/2025 11:2 1 AM EDT 05/20/2025 us Jong Hall MD LAB BLOOD ORDERABLES Final Resul t Performing Organization Address City/[facility] Co de Phone Number [facility] [address] [place] [address] * (ABNORMAL) Renal Function Panel (05/20/2025 11:21 AM EDT) Glucose 150(H) 70 - 99 mg/dL [facility] BUN 18 6 - 24 mg/dL [facility] Creatinine 1.71(H) 0.76 - 1.27 mg/dL [facility] eGFR CKD-EPI CR 2020 48(L) >59 mL/min/1.7 3 [facility] BUN/Creatinine Ratio 11 9 - 20 [facility] Sodium 139 134 - 144 mmol/L [facility] Potassium 4.2 3.5 - 5.2 mmol/L [facility] Chloride 104 96 - 106 mmol/L [facility] Bicarbonate (CO2) 18(L) 20 - 29 mmol/L [facility] Calcium 8.9 8.7 - 10.2 mg/dL [facility] Albumin 3.9(L) 4.1 - 5.1 g/dL [facility] Phosphorus 2.4(L) 2.8 - 4.1 mg/dL [facility] 05/20/2025 11:2 1 AM EDT 05/20/2025 us Jong Hall MD LAB BLOOD ORDERABLES Final Resul t [email or web address] [address] [place] [address] from Last 3 Months Insurance Medicaid Care Teams Testing Projects Administrator Relationship Specialty Start Date End Date Zari Henry MD [address] [place] [id number] PCP - General Internal Medicine 12/09/24
[2025-06-13 09:58] LABS: MANUAL DIFF FLAG NO
[2025-06-13 10:03] LABS: Hematocrit 31.8 % (42.0-52.0); Hemoglobin 11.1 g/dl (14.0-18.0); Imm Gran Abs Auto 0.05 X10*3/uL (0.00-0.03); Imm Gran Pct Auto 0.5 % (0.0-0.4); Lymphocytes Absolute Auto 0.7 X10*3/uL (1.2-4.9); Mean Corpuscular HGB Conc 34.9 g/dl (31.0-36.0); Mean Corpuscular Hemoglobin 28.2 pg (27.0-33.0); Mean Corpuscular Volume 80.7 fL (80.0-98.0); NRBC Abs Auto 0.000 X10*3/uL (0.0-0.012); NRBC Pct Auto 0.0 /100WBC (0.0-0.2); Platelet Count 224 X10*3/uL (160-400); Red Blood Count 3.94 X10*6/uL (4.60-5.80); White Blood Count 10.0 X10*3/uL (4.8-10.8)
[2025-06-13 10:13] LABS: INTERNATIONAL NORM RATIO 1.0 (0.9-1.1); Prothrombin Time 11.0 SEC (10.9-12.4)
[2025-06-13 10:16] LABS: Alanine Aminotransferase 51 U/L (0-40); Albumin Level 3.5 g/dL (3.5-5.0); Alkaline Phosphatase 127 U/L (39-117); Anion Gap 20 (12-20); Aspartate Amino Transferase 95 U/L (5-37); Blood Urea Nitrogen 12 mg/dL (9-16); Calcium 8.2 mg/dL (8.4-10.2); Carbon Dioxide 18 mmol/L (22-29); Chloride 105 mmol/L (96-108); Creatinine Clr Calc Pharmacy 77.3; Estimated Glomerular Filt Rate > 60; Magnesium 1.5 mg/dL (1.6-2.6); Potassium 4.7 mmol/L (3.3-5.1); Sodium 138 mmol/L (135-145); Total Protein 6.5 g/dL (6.5-8.0)
[2025-06-13 10:19] LABS: B Type Natriuretic Peptide 102 pg/mL (<100); Troponin-I High Sensitivity 7.2 ng/L (<3.5-35.0)
[2025-06-13] MEDS: Bumetanide 1 MG/4 ML VIAL 0.5 MG IVPUSH (10:24)
[2025-06-13 10:40] LABS: Resp Syncy Virus RNA Qual PCR NEGATIVE (Negative); SARS COV2 PCR INHOUSE NEGATIVE (Negative)
[2025-06-13] MEDS: Magnesium Sulfate/H2O 2 GM/50 ML PIGGYBACK IV (13:50)
[2025-06-13] MEDS: Metoprolol Succinate ER 100 MG TAB.ER.24H PO (17:39)
--- NOTE | 2025-06-13 18:24 | PHA.MEDREC ---
Addendum entered by Bianca Lama RPh 06/13/25 18:36: MED REC REVIEWED BY ANGELA Original Note: Pharmacy Consult ? Medication Reconciliation Pharmacy has completed the medication reconciliation. Patient was able to confirm all her medications. Patient states he is no longer taking Ferrous Sulfate 325 mg, Losartan 25 mg, and nicotine patch. Patient confirmed he has an insulin pump (Omnipod 5 G6) and uses Insulin Lispro 100 units. Patient last had his medications last night.
--- NOTE | 2025-06-13 19:42 | PM.IMHP ---
History of Present Illness Date of Service: 06/13/25 Attending physician on admission: Samantha Chowdhury Chief Complaint: Multiple complaints Ciara Quiroga is 49 years old man with past medical history significant for CHF, COPD on oxygen, PAD, essential hypertension, hyperlipidemia and type 2 diabetes on insulin presents to the emergency department with multiple complaints including: Shortness on breath, cough, wheezing, chest, lower abdominal pain, nausea, dry heaving and diarrhea. No fever or chills reported. He has an ongoing tobacco smoker, smoked 10 cigarettes per day. He also smoked marijuana and drink alcohol. He was unclear how many drinks daily or when was the last time. In the ED, he was found to have hypertension and tachycardia. There is no fever and oxygen saturation is 98 on room%. Blood count showed no leukocytosis, hemoglobin is 11.1 at baseline and platelets are normal. INR is 1.0. There are no significant electrolyte imbalances except for hypomagnesemia of 1.5. Glucose is 265. Renal function is normal and there is no acidosis. LFTs are elevated with normal bilirubin. ETOH level is < 10. Viral serology for COVID-19, influenza and RSV is negative. CXR is negative. Abdominal pelvis CT scan without contrast showed no hydronephrosis or nephrolithiasis, consider ileus, bilateral adrenal hyperplasia, small umbilical hernia anesthetic chloride disease in the iliac arteries. ECG showed sinus tachycardia, heart rate 102 bpm without acute ischemic changes. ED tx: Furosemide 20 mg IV, Bumex 0.5 mg IV, Zofran 4 mg IV, magnesium 2 g IV, morphine 4 mg IV, Benadryl 12.5 mg IV, hydralazine 10 mg IV, amlodipine 5 mg p.o., metoprolol 100 mg p.o., hydralazine 100 mg p.o., lorazepam 2 mg p.o. Review of Systems Review of Systems: All 12 systems were reviewed and normal except as noted in HPI. [facility] Medical History Tobacco use CKD (chronic kidney disease) stage 1, GFR 90 ml/min or greater YARELIS (obstructive sleep apnea) Acute on chronic diastolic (congestive) heart failure KELVIN (acute kidney injury) Chronic heart failure with preserved ejection fraction (HFpEF) Depression Acute on chronic anemia Anxiety HLD (hyperlipidemia) Diabetes HTN (hypertension) Asthma PAD (peripheral artery disease) Family History Father Alzheimer disease CAD (coronary artery disease) Surgical History History of esophagogastroduodenoscopy S/P angiogram of extremity Social History Household Members: None Household Members Other:: 4 Housing: Apartment Do you presently have visiting nurse or other home services: Yes Unable to assess alcohol history related to: Unknown Alcohol intake: current Alcohol intake frequency: 0-2 drinks per day Alcohol type: hard liquor Comment: pt is independent in room Patient Tobacco Use Status: Current everyday Tobacco user Tobacco use type: Cigarette Cigarette Packs Per Day: 1 Cigarettes Per Day: 10 Years Smoked: 33 years e-Cigarette/Vaping Use: Currently Using Second Hand Smoke Exposure: No Substance Use Type: Marijuana Advance Directives: Yes Advance Directives on File: Yes Advance Directives Date on File: 06/21/21 service: No Current occupational status: disabled Meds Allergies Allergy/AdvReac Type Severity Reaction Status Date / Time dulaglutide ([facility]) Allergy Unknown Verified 06/13/25 09:41 metformin (METFORMIN) AdvReac Mild DIARRHEA, Verified 06/13/25 09:41 nausea and vomiting Active Medications: Current Medications Acetaminophen (Acetaminophen 325 Mg Tablet) 975 mg PO Q6H PRN PRN Reason: Pain, Mild 1-3,fever,headache Albuterol Sulfate (Albuterol Sulfate (0.083%) 2.5 Mg/3 Ml Vial.Neb) 2.5 mg INHALE Q2H PRN PRN Reason: Shortness of Breath/Wheezing Albuterol/Ipratropium (Albuterol/Iprat 2.5/0.5mg 3 Ml Ampul.Neb) 3 ml INHALE RQ4H WHILE AWAKE [facility] Amlodipine Besylate (Amlodipine Besylate 10 Mg Tablet) 10 mg PO DAILY [facility]; Protocol Aspirin (Aspirin Enteric Coated 81 Mg Tablet.Dr) 81 mg PO DAILY [facility] Atorvastatin Calcium (Atorvastatin Calcium 40 Mg Tablet) 40 mg PO DAILY [facility] Calcium Carbonate (Calcium Carbonate 750 Mg Tab.Chew) 750 mg PO Q4H PRN PRN Reason: Heartburn Dextrose (Dextrose 50 % 25 Gm/50 Ml Syringe) 25 gm IVPUSH Q15M PRN; Protocol PRN Reason: per Hypoglycemia Standing Ord. Dextrose (Dextrose 50 % 25 Gm/50 Ml Syringe) 25 gm IVPUSH Q15M PRN; Protocol PRN Reason: per Hypoglycemia Standing Ord. Diazepam (Diazepam 10 Mg/2 Ml Cartridge) 2.5 mg IVPUSH Q4H PRN PRN Reason: Alcohol Withdrawal Enoxaparin Sodium (Enoxaparin Sodium 40 Mg/0.4 Ml Syringe) 40 mg SUBCUT Q24H [facility] Escitalopram Oxalate (Escitalopram Oxalate 10 Mg Tablet) 10 mg PO DAILY [facility] Folic Acid (Folic Acid 1 Mg Tablet) 1 mg PO DAILY [facility] Glucose (Glucose Gel 15 Gm Gel..Gram.) 15 gm PO Q15M PRN; Protocol PRN Reason: per Hypoglycemia Standing Ord. Glucose (Glucose Gel 15 Gm Gel..Gram.) 15 gm PO Q15M PRN; Protocol PRN Reason: per Hypoglycemia Standing Ord. Hydralazine HCl (Hydralazine Hcl 50 Mg Tablet) 100 mg PO TID [facility]; Protocol Hydromorphone HCl (Hydromorphone Hcl 0.5 Mg/0.5 Ml Syringe) 0.5 mg IVPUSH Q4H PRN; Protocol PRN Reason: Pain, Severe (Pain Scale 7-10) Thiamine HCl 100 mg/ Sodium (Chloride) 101 mls @ 202 mls/hr IV DAILY [facility] Insulin Human Lispro (Insulin Lispro 100 Unit/Ml 3 Ml Vial) 0 unit SUBCUT QIDACHS [facility]; Protocol Insulin Human Lispro (Insulin Lispro 100 Unit/Ml 3 Ml Vial) 0 unit SUBCUT QIDACHS [facility]; Protocol Losartan Potassium (Losartan Potassium 25 Mg Tablet) 25 mg PO DAILY [facility]; Protocol Magnesium Hydroxide (Milk Of Magnesia 30 Ml Oral.Susp) 30 ml PO DAILY PRN PRN Reason: Constipation Magnesium Oxide (Magnesium Oxide 400 Mg Tablet) 400 mg PO DAILY [facility] Metoprolol Succinate (Metoprolol Succinate Er 100 Mg Tab.Er.24h) 100 mg PO DAILY [facility]; Protocol Non-Formulary Medication (Ferrous Sulfate [Iron]) 325 mg PO DAILY [facility] Omeprazole (Omeprazole 40 Mg Capsule.Dr) 40 mg PO DAILY@0630 [facility] Ondansetron HCl (Ondansetron Hcl 4 Mg/2 Ml Vial) 4 mg IVPUSH Q8H PRN PRN Reason: Nausea and Vomiting Sodium Chloride (0.9 % Sodium Chloride Flush 3 Ml Syringe) 3 ml IVFLUSH QSHIFT [facility] Sucralfate (Sucralfate 1 Gm Tablet) 1 gm PO QID [facility] Torsemide (Torsemide 20 Mg Tablet) 60 mg PO DAILY [facility]; Protocol Torsemide (Torsemide 20 Mg Tablet) 40 mg PO BEDTIME [facility]; Protocol Trazodone HCl (Trazodone Hcl 100 Mg Tablet) 100 mg PO BEDTIME [facility] Home Medications ?Medication ?Instructions ?Recorded ?Confirmed ?Last Taken ?Type escitalopram oxalate 10 mg tablet 10 mg PO DAILY 08/01/22 06/13/25 06/13/25 History trazodone 50 mg tablet 100 mg PO BEDTIME 08/01/22 06/13/25 06/13/25 History aspirin 81 mg tablet,delayed 81 mg PO DAILY 10/06/22 06/13/25 06/13/25 History release atorvastatin 40 mg tablet 40 mg PO DAILY 10/06/22 06/13/25 06/13/25 History metoprolol succinate 100 mg 100 mg PO DAILY 10/06/22 06/13/25 06/13/25 History tablet,extended release 24 hr amlodipine 5 mg tablet 10 mg PO DAILY 06/02/24 06/13/25 06/13/25 History insulin pump cartridge,automated 06/11/24 03/14/25 Unknown History dose,BT with controller subcutaneous (Omnipod 5 G6 Intro Kit (Gen 5) subcutaneous cartridge with controller) omeprazole 40 mg capsule,delayed 40 mg PO DAILY@0630 07/15/24 06/13/25 06/13/25 History release insulin lispro 100 unit/mL 100 unit DIRECTED 11/19/24 06/13/25 06/13/25 History subcutaneous solution sucralfate 1 gram tablet 1 g PO QID 01/14/25 06/13/25 06/13/25 History torsemide 20 mg tablet 40 mg PO BEDTIME 05/28/25 06/13/25 06/13/25 History torsemide 20 mg tablet 60 mg PO DAILY 05/28/25 06/13/25 06/13/25 History albuterol sulfate 2.5 mg/3 mL 2.5 mg inhalation Q6H PRN wheezing 06/13/25 06/13/25 Unknown History (0.083 %) solution for nebulization losartan 25 mg tablet 25 mg PO DAILY 06/13/25 06/13/25 06/13/25 History magnesium oxide 400 mg (241.3 mg 400 mg PO DAILY 06/13/25 06/13/25 06/13/25 History magnesium) tablet nicotine 21 mg/24 hr daily 21 mg transdermal DAILY PRN 06/13/25 06/13/25 Unknown History transdermal patch Smoking Cessation Physical Exam Vital Signs and Narrative: Vital Signs: Last Vital Signs Temp 98 F 06/13/25 17:50 Pulse 110 H 06/13/25 17:50 Resp 20 06/13/25 17:50 BP 191/96 H 06/13/25 17:50 Pulse Ox 98 06/13/25 17:50 O2 Del Method Room Air 06/13/25 17:50 BMI result Body Mass Index 21.3 Constitutional - Awake and Alert, No apparent distress HEENT - PERRLA, EOMI Heart - S1S2, RRR, No edema Lungs - Normal lung expansion, Normal respiratory effort, No respiratory distress, CTA bilaterally Abdomen - NT / ND; +BS; No rebound or guarding Extremities - no calf tenderness bilaterally, no swelling Musculoskeletal - Normal inspection, normal ROM Skin - Warm/Dry Neurological - Alert & oriented x3. Moving all extremities spontaneously. Psychological - Appropriate affect Results Labs 06/13/25 09:53 06/13/25 09:53 Labs: Laboratory Results - last 24 hr 06/13/25 09:53 MCV 80.7 MCH 28.2 MCHC 34.9 RDW 19.0 H Plt Count 224 MPV 9.7 Immature Gran % (Auto) 0.5 H Neut % (Auto) 85.3 H Lymph % (Auto) 7.3 L [place] % (Auto) 6.2 Eos % (Auto) 0.4 Baso % (Auto) 0.3 Lymph # (Auto) 0.7 L [place] # (Auto) 0.6 Eos # (Auto) 0.0 Baso # (Auto) 0.0 Abs Immat Gran (auto) 0.05 H Absolute Neuts (auto) 8.5 H Absolute Nucleated RBC 0.000 Nucleated RBC % (auto) 0.0 PT 11.0 INR 1.0 Anion Gap 20 Estim Creat Clear Calc 77.3 Estimated GFR > 60 Random Glucose 265 H Calcium 8.2 L Magnesium 1.5 L Total Bilirubin 0.7 AST 95 H ALT 51 H Alkaline Phosphatase 127 H B-Natriuretic Peptide 102 H Total Protein 6.5 Albumin 3.5 Ethyl Alcohol < 10 Influenza Type A (PCR) NEGATIVE Influenza Type B (PCR) NEGATIVE RSV RNA Qual (PCR) NEGATIVE SARS-CoV-2 RNA (RT-PCR) NEGATIVE Imaging Radiologist's Impressions: Impressions Chest X-Ray 06/13/25 09:06 IMPRESSION: No acute cardiopulmonary abnormality. Electronically signed by: Yevgeniy Jhaveri MD 06/13/2025 10:16 AM EDT RP Abdomen Ultrasound 06/13/25 13:26 IMPRESSION: No cholelithiasis. Up to normal limits common bile duct. No hydronephrosis right kidney. 1.6 cm cyst, right kidney. No ascites. Electronically signed by: Jayden Camacho MD 06/13/2025 02:20 PM EDT RP Assessment and Plan (1) Alcohol withdrawal: Qualifiers: Complication of substance-induced condition: uncomplicated Qualified Code(s): F10.930 - Alcohol use, unspecified with withdrawal, uncomplicated Status: Acute Plan Ciara Quiroga is 49 y/o man presents with: Acute COPD exacerbation. Pulse oximetry. Supplemental O2 to keep O2 sats > 90%. Bronchodilator therapy. Chest pain, likely secondary to above. Troponin negative X1. ECG showed no acute ischemic changes. Recheck troponin now. Lower abdominal pain associated with nausea and dry heaving. Mild dysuria. ?Question ileus. Continue antiemetic. IV pain meds. Check urinalysis. Chronic diarrhea. Hold magnesium oxide. Alcohol withdrawal syndrome. CIWA. Valium IV as needed. Thiamine, folic acid and multivitamins. Type 2 diabetes mellitus. BG checks before meals at bedtime. Insulin sliding scale. Diabetic diet. Hypomagnesemia, secondary to alcohol abuse. Replete as needed. Continue to monitor. Hyperlipidemia. Continue atorvastatin. GERD. Continue PPI and Carafate. Essential hypertension. Continue hydralazine, metoprolol, losartan and amlodipine. HFpEF. Normal lungs. BNP unremarkable. CXR negative. Continue diuretics and ARB. Tobacco dependence. Tobacco cessation education. Code status: Full DVT prophylaxis: Lovenox Patient will need hospitalization for at least 2 midnights for COPD exacerbation treatment with bronchodilator therapy, supplemental oxygen as needed; alcohol withdrawal syndrome therapy as well. Quality Stroke Does the patient have a stroke diagnosis?: No VTE Prior VTE?: No VTE Risk Level:: Medical - moderate - high VTE Device Contraindication: Treatment Not Indicated VTE Drug Contraindication: N/A - Med Ordered
[2025-06-13] MEDS: Thiamine HCL 100 MG in 0.9 % Sodium Chloride 100 ML 202 MG IV (20:29)
[2025-06-13] MEDS: Albuterol/Iprat 2.5/0.5MG 3 ML AMPUL.NEB INHALE (20:32)
[2025-06-13 20:42] LABS: Glucose, Whole Blood 169 mg/dL (60-115)
[2025-06-13 20:52] LABS: Appearance Urine Clear; Glucose Urine UA 500 mg/dL (Negative); PH 8.0 (5.0-9.0); Specific Gravity - Urine 1.010 (1.005-1.025); UMIC TRIGGER UACC YES
[2025-06-13 21:17] LABS: Troponin-I High Sensitivity 8.5 ng/L (<3.5-35.0)
--- NOTE | 2025-06-13 23:30 | PC.NURSE ---
This adjusto writer operator assumed care of this Pt at 2300.
[2025-06-14] VITALS (15 sets, daily range): BP systolic 142–154; BP diastolic 68–79; PULSE 62–99; RESP 13–18; TEMP 36.3–37.2; O2SAT 94–100; BMI 20.9
[2025-06-14] MEDS: 0.9 % Sodium Chloride Flush 3 ML SYRINGE IVFLUSH ×4 (01:00→20:42)
[2025-06-14 06:57] LABS: Hematocrit 34.4 % (42.0-52.0); Hemoglobin 11.7 g/dl (14.0-18.0); Mean Corpuscular HGB Conc 34.0 g/dl (31.0-36.0); Mean Corpuscular Hemoglobin 28.2 pg (27.0-33.0); Mean Corpuscular Volume 82.9 fL (80.0-98.0); NRBC Abs Auto 0.000 X10*3/uL (0.0-0.012); NRBC Pct Auto 0.0 /100WBC (0.0-0.2); Platelet Count 219 X10*3/uL (160-400); Red Blood Count 4.15 X10*6/uL (4.60-5.80); White Blood Count 7.0 X10*3/uL (4.8-10.8)
[2025-06-14 07:20] LABS: Alanine Aminotransferase 37 U/L (0-40); Albumin Level 3.6 g/dL (3.5-5.0); Alkaline Phosphatase 123 U/L (39-117); Aspartate Amino Transferase 47 U/L (5-37); Blood Urea Nitrogen 9 mg/dL (9-16); Calcium 8.3 mg/dL (8.4-10.2); Creatinine Clr Calc Pharmacy 55.1; Estimated Glomerular Filt Rate 57; Magnesium 2.0 mg/dL (1.6-2.6); Total Protein 6.4 g/dL (6.5-8.0)
[2025-06-14 07:23] LABS: Glucose, Whole Blood 169 mg/dL (60-115)
--- NOTE | 2025-06-14 07:26 | HO.PM.IMPN ---
Subjective Subjective Date of Service: 06/14/25 Interval History: Seen and examined this morning Interval history: Feels marginally better than yesterday. Still with orthopnea, daugherty, pleuritic cp. Has nonproductive cough- not present at baseline. No edema. No other complaints Review of Systems Review of Systems: Yes all other systems are reviewed and are negative Physical Exam Exam: Exam: Constitutional - Awake and Alert, No apparent distress Eyes - PERRLA, EOMI Cardiovascular - S1S2, RRR, No edema. No JVD Respiratory - Normal lung expansion, Normal respiratory effort, No respiratory distress, CTA bilaterally Gastrointestinal - NT / ND; +BS; No rebound or guarding Extremities - no calf tenderness bilaterally, no swelling Skin - Warm/Dry Neurological - Alert & oriented x3 Psychological - Appropriate affect Vital Signs: Vital Signs: Last Vital Signs Temp 99.1 F 06/13/25 20:25 Pulse 92 06/14/25 04:05 Resp 16 06/14/25 04:05 BP 154/79 H 06/14/25 04:05 Pulse Ox 96 06/14/25 04:05 O2 Del Method Room Air 06/14/25 04:05 BMI result Body Mass Index 21.3 Objective Data Active Medications Acetaminophen (Acetaminophen 325 Mg Tablet) 975 mg PO Q6H PRN PRN Reason: Pain, Mild 1-3,fever,headache Albuterol Sulfate (Albuterol Sulfate (0.083%) 2.5 Mg/3 Ml Vial.Neb) 2.5 mg INHALE Q2H PRN PRN Reason: Shortness of Breath/Wheezing Albuterol/Ipratropium (Albuterol/Iprat 2.5/0.5mg 3 Ml Ampul.Neb) 3 ml INHALE RQ4H WHILE AWAKE [facility] Last Admin: 06/13/25 20:32 Dose: 3 ml Documented By: KAT Amlodipine Besylate (Amlodipine Besylate 10 Mg Tablet) 10 mg PO DAILY [facility]; Protocol Aspirin (Aspirin Enteric Coated 81 Mg Tablet.) 81 mg PO DAILY [facility] Atorvastatin Calcium (Atorvastatin Calcium 40 Mg Tablet) 40 mg PO DAILY [facility] Calcium Carbonate (Calcium Carbonate 750 Mg Tab.Chew) 750 mg PO Q4H PRN PRN Reason: Heartburn Dextrose (Dextrose 50 % 25 Gm/50 Ml Syringe) 25 gm IVPUSH Q15M PRN; Protocol PRN Reason: per Hypoglycemia Standing Ord. Dextrose (Dextrose 50 % 25 Gm/50 Ml Syringe) 25 gm IVPUSH Q15M PRN; Protocol PRN Reason: per Hypoglycemia Standing Ord. Diazepam (Diazepam 10 Mg/2 Ml Cartridge) 2.5 mg IVPUSH Q4H PRN PRN Reason: Alcohol Withdrawal Enoxaparin Sodium (Enoxaparin Sodium 40 Mg/0.4 Ml Syringe) 40 mg SUBCUT Q24H [facility] Escitalopram Oxalate (Escitalopram Oxalate 10 Mg Tablet) 10 mg PO DAILY [facility] Ferrous Sulfate (Ferrous Sulfate 324 Mg Tablet.Dr) 324 mg PO DAILY [facility] Folic Acid (Folic Acid 1 Mg Tablet) 1 mg PO DAILY [facility] Glucose (Glucose Gel 15 Gm Gel..Gram.) 15 gm PO Q15M PRN; Protocol PRN Reason: per Hypoglycemia Standing Ord. Glucose (Glucose Gel 15 Gm Gel..Gram.) 15 gm PO Q15M PRN; Protocol PRN Reason: per Hypoglycemia Standing Ord. Hydralazine HCl (Hydralazine Hcl 50 Mg Tablet) 100 mg PO TID [facility]; Protocol Last Admin: 06/13/25 21:39 Dose: Not Given Documented By: KAT Non-Admin Reason: Previously Administered Hydromorphone HCl (Hydromorphone Hcl 0.5 Mg/0.5 Ml Syringe) 0.5 mg IVPUSH Q4H PRN; Protocol PRN Reason: Pain, Severe (Pain Scale 7-10) Last Admin: 06/14/25 04:00 Dose: 0.5 mg Documented By: DESEAN Thiamine HCl 100 mg/ Sodium (Chloride) 101 mls @ 202 mls/hr IV DAILY [facility] Last Infusion: 06/13/25 21:00 Dose: Infused Documented By: KAT Insulin Human Lispro (Insulin Lispro 100 Unit/Ml 3 Ml Vial) 0 unit SUBCUT QIDACHS [facility]; Protocol Last Admin: 06/13/25 20:37 Dose: 2 unit Documented By: KAT Comments: [id number] Insulin Human Lispro (Insulin Lispro 100 Unit/Ml 3 Ml Vial) 0 unit SUBCUT QIDACHS [facility]; Protocol Last Admin: 06/13/25 21:40 Dose: Not Given Documented By: KAT Non-Admin Reason: Duplicate Order Losartan Potassium (Losartan Potassium 25 Mg Tablet) 25 mg PO DAILY [facility]; Protocol Metoprolol Succinate (Metoprolol Succinate Er 100 Mg Tab.Er.24h) 100 mg PO DAILY [facility]; Protocol Omeprazole (Omeprazole 40 Mg Capsule.Dr) 40 mg PO DAILY@0630 [facility] Last Admin: 06/14/25 06:45 Dose: 40 mg Documented By: DESEAN Ondansetron HCl (Ondansetron Hcl 4 Mg/2 Ml Vial) 4 mg IVPUSH Q8H PRN PRN Reason: Nausea and Vomiting Sodium Chloride (0.9 % Sodium Chloride Flush 3 Ml Syringe) 3 ml IVFLUSH QSHIFT [facility] Last Admin: 06/14/25 01:00 Dose: 3 ml Documented By: DESEAN Sucralfate (Sucralfate 1 Gm Tablet) 1 gm PO QID [facility] Last Admin: 06/13/25 20:31 Dose: 1 gm Documented By: KAT Torsemide (Torsemide 20 Mg Tablet) 60 mg PO DAILY [facility]; Protocol Torsemide (Torsemide 20 Mg Tablet) 40 mg PO BEDTIME [facility]; Protocol Trazodone HCl (Trazodone Hcl 100 Mg Tablet) 100 mg PO BEDTIME [facility] Last Admin: 06/13/25 20:32 Dose: 100 mg Documented By: KAT Labs 06/14/25 06:44 06/14/25 06:44 Labs: Laboratory Results - last 24 hr 06/13/25 06/13/25 06/13/25 09:53 20:30 20:36 MCV 80.7 MCH 28.2 MCHC 34.9 RDW 19.0 H Plt Count 224 MPV 9.7 Immature Gran % (Auto) 0.5 H Neut % (Auto) 85.3 H Lymph % (Auto) 7.3 L Esmeralda % (Auto) 6.2 Eos % (Auto) 0.4 Baso % (Auto) 0.3 Lymph # (Auto) 0.7 L Esmeralda # (Auto) 0.6 Eos # (Auto) 0.0 Baso # (Auto) 0.0 Abs Immat Gran (auto) 0.05 H Absolute Neuts (auto) 8.5 H Absolute Nucleated RBC 0.000 Nucleated RBC % (auto) 0.0 PT 11.0 INR 1.0 Anion Gap 20 Estim Creat Clear Calc 77.3 Estimated GFR > 60 POC Glucose 169 H Random Glucose 265 H Calcium 8.2 L Magnesium 1.5 L Total Bilirubin 0.7 AST 95 H ALT 51 H Alkaline Phosphatase 127 H B-Natriuretic Peptide 102 H Total Protein 6.5 Albumin 3.5 Urine Color Yellow Urine Appearance Clear Urine pH 8.0 Ur Specific [place] 1.010 Urine Protein 300 (3+) H Urine Glucose (UA) 500 H Urine Ketones Negative Urine Blood Trace H Urine Nitrite Negative Ur Leukocyte Esterase Negative Urine RBC 3-5 H Urine WBC 0-5 Ur Squamous Epith Cells 0-2 Urine Bacteria None Seen Hyaline Casts 0-2 Ethyl Alcohol < 10 Influenza Type A (PCR) NEGATIVE Influenza Type B (PCR) NEGATIVE RSV RNA Qual (PCR) NEGATIVE SARS-CoV-2 RNA (RT-PCR) NEGATIVE 06/14/25 06/14/25 06:44 07:20 MCV 82.9 MCH 28.2 MCHC 34.0 RDW 19.3 H Plt Count 219 MPV 10.0 Immature Gran % (Auto) Neut % (Auto) Lymph % (Auto) Esmeralda % (Auto) Eos % (Auto) Baso % (Auto) Lymph # (Auto) Esmeralda # (Auto) Eos # (Auto) Baso # (Auto) Abs Immat Gran (auto) Absolute Neuts (auto) Absolute Nucleated RBC 0.000 Nucleated RBC % (auto) 0.0 PT INR Anion Gap Estim Creat Clear Calc 55.1 Estimated GFR 57 POC Glucose 169 H Random Glucose 177 H Calcium 8.3 L Magnesium 2.0 Total Bilirubin 0.5 AST 47 H ALT 37 Alkaline Phosphatase 123 H B-Natriuretic Peptide Total Protein 6.4 L Albumin 3.6 Urine Color Urine Appearance Urine pH Ur Specific [place] Urine Protein Urine Glucose (UA) Urine Ketones Urine Blood Urine Nitrite Ur Leukocyte Esterase Urine RBC Urine WBC Ur Squamous Epith Cells Urine Bacteria Hyaline Casts Ethyl Alcohol Influenza Type A (PCR) Influenza Type B (PCR) RSV RNA Qual (PCR) SARS-CoV-2 RNA (RT-PCR) Assessment and Plan (1) Alcohol withdrawal: Status: Acute Plan 48-year-old male with pertinent history of insulin-dependent diabetes mellitus, hypertension, mood disorder, COPD on prn 2-3L O2, alcohol use disorder, congestive heart failure reduced EF admitted to our facility due to COPD exacerbation Acute COPD exacerbation CXR negative for any acute cardiopulmonary abnormality Chronic hypoxemic respiratory failure at baseline. Keep O2 88-90% Check RPP IV Solu-Medrol DuoNebs HFrEF Given multiple doses of IV diuretics in the ED. Currently euvolemic, continue p.o. diuretics Alcohol use disorder Relapse 3 days ago. Reports 1 time use Monitor on CIWA IV Valium p.r.n. Acute lower abdominal pain Question ileus. UA normal Pain medications and antiemetics p.r.n. Hyperlipidemia Statin Type 2 diabetes POC glucose, diabetic diet Sliding scale Hypomagnesemia Secondary to alcohol use, repleted GERD PPI and Carafate Tobacco dependence Nicotine replacement therapy DVT prophylaxis-Lovenox Full code Ongoing inpatient stay due to COPD exacerbation requiring IV steroids and close monitoring of respiratory status Quality Stroke Does the patient have a stroke diagnosis?: No VTE Prior VTE?: No VTE Risk Level:: Medical - moderate - high VTE Device Contraindication: Treatment Not Indicated VTE Drug Contraindication: N/A - Med Ordered
[2025-06-14 07:27] LABS: Anion Gap 19 (12-20); Carbon Dioxide 24 mmol/L (22-29); Chloride 100 mmol/L (96-108); Potassium 3.6 mmol/L (3.3-5.1); Sodium 139 mmol/L (135-145)
[2025-06-14] MEDS: Albuterol/Iprat 2.5/0.5MG 3 ML AMPUL.NEB INHALE ×4 (07:48→18:47)
[2025-06-14] MEDS: Aspirin Enteric Coated 81 MG TABLET.DR PO (09:27)
[2025-06-14] MEDS: Ferrous Sulfate 324 MG TABLET.DR PO (09:27)
[2025-06-14] MEDS: Metoprolol Succinate ER 100 MG TAB.ER.24H PO (09:27)
[2025-06-14] MEDS: Thiamine HCL 100 MG in 0.9 % Sodium Chloride 100 ML 200 MG IV (09:28)
--- NOTE | 2025-06-14 09:52 | MHC.EDTECH ---
Patient said his Monitor of his BS it was 59 , I check his BS right away it was 90 RN(Stephanie) aware.
[2025-06-14 09:55] LABS: Glucose, Whole Blood 90 mg/dL (60-115)
--- NOTE | 2025-06-14 14:59 | MHC.CM.PN ---
Pt self-care, lives alone at home. Pt states he is active with [facility]. Pt states he will need assistance with transport home at discharge. HCP on file and verified. PCP: Dr. Zari Henry
[2025-06-14] MEDS: Nicotine 14 MG PATCH.TD24 TRANSDERMA (15:53)
[2025-06-14 16:15] LABS: Glucose, Whole Blood 359 mg/dL (60-115)
[2025-06-14 17:41] LABS: Glucose, Whole Blood 253 mg/dL (60-115)
[2025-06-14 20:47] LABS: Glucose, Whole Blood 275 mg/dL (60-115)
[2025-06-14] MEDS: diazePAM 10 MG/2 ML CARTRIDGE 2.5 MG IVPUSH ×2 (21:06→21:43)
[2025-06-15] VITALS (10 sets, daily range): BP systolic 134–159; BP diastolic 70–85; PULSE 79–105; RESP 16–18; TEMP 36.3–36.9; O2SAT 96–99
[2025-06-15 07:13] LABS: Glucose, Whole Blood 577 mg/dL (60-115)
[2025-06-15] MEDS: Albuterol/Iprat 2.5/0.5MG 3 ML AMPUL.NEB INHALE ×4 (07:36→18:40)
[2025-06-15] MEDS: Nicotine 14 MG PATCH.TD24 TRANSDERMA (07:56)
[2025-06-15] MEDS: Aspirin Enteric Coated 81 MG TABLET.DR PO (07:57)
[2025-06-15] MEDS: Metoprolol Succinate ER 100 MG TAB.ER.24H PO (07:58)
[2025-06-15] MEDS: Ferrous Sulfate 324 MG TABLET.DR PO (08:00)
[2025-06-15] MEDS: Thiamine HCL 100 MG in 0.9 % Sodium Chloride 100 ML 202 MG IV (08:00)
[2025-06-15 08:27] LABS: Anion Gap 20 (12-20); Blood Urea Nitrogen 18 mg/dL (9-16); Calcium 8.4 mg/dL (8.4-10.2); Carbon Dioxide 19 mmol/L (22-29); Chloride 96 mmol/L (96-108); Creatinine Clr Calc Pharmacy 36.2; Estimated Glomerular Filt Rate 36; Potassium 4.2 mmol/L (3.3-5.1); Sodium 131 mmol/L (135-145)
[2025-06-15] MEDS: 0.9 % Sodium Chloride Flush 3 ML SYRINGE IVFLUSH ×3 (09:36→21:12)
[2025-06-15 11:21] LABS: Glucose, Whole Blood 459 mg/dL (60-115)
[2025-06-15 11:40] LABS: Chlamydia pneumoniae PCR Not Detected (Not Detect.); Coronavirus 229E PCR Not Detected (Not Detect.); Coronavirus HKU1 PCR Not Detected (Not Detect.); Coronavirus NL63 PCR Not Detected (Not Detect.); Coronavirus OC43 PCR Not Detected (Not Detect.); RSV PCR Not Detected (Not Detect.); Rhino/Enterovirus PCR Not Detected (Not Detect.)
[2025-06-15 11:51] LABS: Influenza A H1 PCR Not Detected (Not Detect.); Influenza A H1-2009 PCR Not Detected (Not Detect.); Influenza A H3 PCR Not Detected (Not Detect.); SARS-CoV-2 PCR Not Detected (Not Detect.)
[2025-06-15 13:13] LABS: Hemoglobin A1C 188.6950 umol/L; Total Hemoglobin (HGBA1C) 2881.0670 umol/L
[2025-06-15] MEDS: Insulin Glargine,Hum.rec.anlog 100 UNIT/ML 10 ML VIAL 15 UNIT SUBCUT (13:18)
[2025-06-15 16:33] LABS: Glucose, Whole Blood 197 mg/dL (60-115)
--- NOTE | 2025-06-15 16:46 | HO.PM.IMPN ---
Subjective Subjective Date of Service: 06/15/25 Interval History: Still some SOB but overall improved; only intermittently using O2 POCs have been high; he is unsure if his Omnipod insulin pump is working Chronic back pain Review of Systems Review of Systems: Yes all other systems are reviewed and are negative Physical Exam Exam: Exam: General: AOx3, no acute distress Resp: CTA bilaterally CVS: S1, S2, RRR GI: +BS, NT, no distention Skin: Warm, dry Neuro: Cranial nerves II-XII grossly intact bilaterally. Motor grossly intact bilaterally Extremities: No edema Psych: Appropriate affect Vital Signs: Vital Signs: Last Vital Signs Temp 98.0 F 06/15/25 15:24 Pulse 84 06/15/25 15:27 Resp 18 06/15/25 15:27 BP 146/81 H 06/15/25 15:24 Pulse Ox 99 06/15/25 15:24 O2 Del Method Room Air 06/15/25 15:24 O2 Flow Rate 1 06/15/25 07:05 BMI result Body Mass Index 20.9 Objective Data Active Medications Acetaminophen (Acetaminophen 325 Mg Tablet) 975 mg PO Q6H PRN PRN Reason: Pain, Mild 1-3,fever,headache Albuterol Sulfate (Albuterol Sulfate (0.083%) 2.5 Mg/3 Ml Vial.Neb) 2.5 mg INHALE Q2H PRN PRN Reason: Shortness of Breath/Wheezing Albuterol/Ipratropium (Albuterol/Iprat 2.5/0.5mg 3 Ml Ampul.Neb) 3 ml INHALE RQ4H WHILE AWAKE [facility] Last Admin: 06/15/25 15:24 Dose: 3 ml Documented By: LEATHA Amlodipine Besylate (Amlodipine Besylate 10 Mg Tablet) 10 mg PO DAILY [facility]; Protocol Last Admin: 06/15/25 07:58 Dose: 10 mg Documented By: YAS Aspirin (Aspirin Enteric Coated 81 Mg Tablet.) 81 mg PO DAILY [facility] Last Admin: 06/15/25 07:57 Dose: 81 mg Documented By: YAS Atorvastatin Calcium (Atorvastatin Calcium 40 Mg Tablet) 40 mg PO DAILY [facility] Last Admin: 06/15/25 07:59 Dose: 40 mg Documented By: YAS Calcium Carbonate (Calcium Carbonate 750 Mg Tab.Chew) 750 mg PO Q4H PRN PRN Reason: Heartburn Dextrose (Dextrose 50 % 25 Gm/50 Ml Syringe) 25 gm IVPUSH Q15M PRN; Protocol PRN Reason: per Hypoglycemia Standing Ord. Dextrose (Dextrose 50 % 25 Gm/50 Ml Syringe) 25 gm IVPUSH Q15M PRN; Protocol PRN Reason: per Hypoglycemia Standing Ord. Diazepam (Diazepam 10 Mg/2 Ml Cartridge) 2.5 mg IVPUSH Q4H PRN PRN Reason: Alcohol Withdrawal Last Admin: 06/14/25 21:43 Dose: 2.5 mg Documented By: DAVID Comments: Enoxaparin Sodium (Enoxaparin Sodium 40 Mg/0.4 Ml Syringe) 40 mg SUBCUT Q24H [facility] Last Admin: 06/15/25 07:56 Dose: 40 mg Documented By: YAS Escitalopram Oxalate (Escitalopram Oxalate 10 Mg Tablet) 10 mg PO DAILY [facility] Last Admin: 06/15/25 07:59 Dose: 10 mg Documented By: YAS Ferrous Sulfate (Ferrous Sulfate 324 Mg Tablet.Dr) 324 mg PO DAILY [facility] Last Admin: 06/15/25 08:00 Dose: 324 mg Documented By: YAS Folic Acid (Folic Acid 1 Mg Tablet) 1 mg PO DAILY [facility] Last Admin: 06/15/25 07:59 Dose: 1 mg Documented By: YAS Glucose (Glucose Gel 15 Gm Gel..Gram.) 15 gm PO Q15M PRN; Protocol PRN Reason: per Hypoglycemia Standing Ord. Glucose (Glucose Gel 15 Gm Gel..Gram.) 15 gm PO Q15M PRN; Protocol PRN Reason: per Hypoglycemia Standing Ord. Hydralazine HCl (Hydralazine Hcl 50 Mg Tablet) 100 mg PO TID [facility]; Protocol Last Admin: 06/15/25 14:13 Dose: 100 mg Documented By: YAS Hydromorphone HCl (Hydromorphone Hcl 0.5 Mg/0.5 Ml Syringe) 0.5 mg IVPUSH Q4H PRN; Protocol PRN Reason: Pain, Severe (Pain Scale 7-10) Last Admin: 06/15/25 13:18 Dose: 0.5 mg Documented By: YAS Thiamine HCl 100 mg/ Sodium (Chloride) 101 mls @ 202 mls/hr IV DAILY [facility] Last Infusion: 06/15/25 08:30 Dose: Infused Documented By: YAS Insulin Glargine (Insulin Glargine,Hum.Rec.Anlog 100 Unit/Ml 10 Ml Vial) 15 unit SUBCUT DAILY [facility] Last Admin: 06/15/25 13:18 Dose: 15 unit Documented By: YAS Insulin Human Lispro (Insulin Lispro 100 Unit/Ml 3 Ml Vial) 0 unit SUBCUT QIDACHS [facility]; Protocol Last Admin: 06/15/25 13:19 Dose: 10 unit Documented By: YAS Insulin Human Lispro (Insulin Lispro 100 Unit/Ml 3 Ml Vial) 0 unit SUBCUT QIDAS [facility]; Protocol Last Admin: 06/15/25 13:19 Dose: 5 unit Documented By: YAS Losartan Potassium (Losartan Potassium 25 Mg Tablet) 25 mg PO DAILY [facility]; Protocol Last Admin: 06/15/25 07:58 Dose: 25 mg Documented By: YAS Methylprednisolone Sodium Succinate (Methylprednisolone Sod Succ 40 Mg/Ml Vial) 40 mg IVPUSH Q12H [facility] Last Admin: 06/15/25 14:12 Dose: 40 mg Documented By: YAS Metoprolol Succinate (Metoprolol Succinate Er 100 Mg Tab.Er.24h) 100 mg PO DAILY [facility]; Protocol Last Admin: 06/15/25 07:58 Dose: 100 mg Documented By: YAS Nicotine (Nicotine 14 Mg Patch.Td24) 14 mg TRANSDERMA DAILY [facility] Last Admin: 06/15/25 07:56 Dose: 14 mg Documented By: YAS Omeprazole (Omeprazole 40 Mg Capsule.Dr) 40 mg PO DAILY@0630 [facility] Last Admin: 06/15/25 05:57 Dose: 40 mg Documented By: DAVID Ondansetron HCl (Ondansetron Hcl 4 Mg/2 Ml Vial) 4 mg IVPUSH Q8H PRN PRN Reason: Nausea and Vomiting Sodium Chloride (0.9 % Sodium Chloride Flush 3 Ml Syringe) 3 ml IVFLUSH QSHIFT [facility] Last Admin: 06/15/25 09:36 Dose: 3 ml Documented By: YAS Sucralfate (Sucralfate 1 Gm Tablet) 1 gm PO QID [facility] Last Admin: 06/15/25 14:12 Dose: 1 gm Documented By: YAS Torsemide (Torsemide 20 Mg Tablet) 60 mg PO DAILY [facility]; Protocol Last Admin: 06/15/25 07:59 Dose: 60 mg Documented By: YAS Torsemide (Torsemide 20 Mg Tablet) 40 mg PO BEDTIME [facility]; Protocol Last Admin: 06/14/25 20:33 Dose: 40 mg Documented By: DAVID Trazodone HCl (Trazodone Hcl 100 Mg Tablet) 100 mg PO BEDTIME [facility] Last Admin: 06/14/25 23:08 Dose: 100 mg Documented By: DAVID Labs 06/14/25 06:44 06/15/25 07:33 Labs: Laboratory Results - last 24 hr 06/14/25 06/14/25 06/14/25 16:05 17:37 20:38 Hold Purple Top Anion Gap Estim Creat Clear Calc Estimated GFR POC Glucose 253 H 275 H Random Glucose Estimat Average Glucose Hemoglobin A1c % Calcium Respiratory Panel Mckeon See Note Adenovirus (Rapid PCR) Not Detected B.pert (TEM-PCR) Not Detected B.parapertussis DNA PCR Not Detected C. pneumoniae DNA (PCR) Not Detected Coronavirus OC43 (PCR) Not Detected Coronavirus HKU1 (PCR) Not Detected Coronavirus 229E (PCR) Not Detected Coronavirus NL63 (PCR) Not Detected Human Metapneumovir PCR Not Detected Influenza A (RT-PCR) Not Detected Influenza A (H1) PCR Not Detected Influ A (H1/09) PCR Not Detected Influenza A (H3) PCR Not Detected Influenza B (RT-PCR) Not Detected M. pneumoniae (PCR) Not Detected Parainfluenza 1 (PCR) Not Detected Parainfluenza 2 (PCR) Not Detected Parainfluenza 3 (PCR) Not Detected Parainfluenza 4 (PCR) Not Detected RSV (PCR) Not Detected Entero/Rhino (PCR) Not Detected SARS-CoV-2 RNA (RT-PCR) Not Detected 06/15/25 06/15/25 06/15/25 07:10 07:33 11:18 Hold Purple Top SEE NOTE Anion Gap 20 Estim Creat Clear Calc 36.2 Estimated GFR 36 POC Glucose 577 H* 459 H* Random Glucose 640 H* Estimat Average Glucose 186 Hemoglobin A1c % 8.1 H Calcium 8.4 Respiratory Panel Mckeon Adenovirus (Rapid PCR) B.pert (TEM-PCR) B.parapertussis DNA PCR C. pneumoniae DNA (PCR) Coronavirus OC43 (PCR) Coronavirus HKU1 (PCR) Coronavirus 229E (PCR) Coronavirus NL63 (PCR) Human Metapneumovir PCR Influenza A (RT-PCR) Influenza A (H1) PCR Influ A (H1/) PCR Influenza A (H3) PCR Influenza B (RT-PCR) M. pneumoniae (PCR) Parainfluenza 1 (PCR) Parainfluenza 2 (PCR) Parainfluenza 3 (PCR) Parainfluenza 4 (PCR) RSV (PCR) Entero/Rhino (PCR) SARS-CoV-2 RNA (RT-PCR) 06/15/25 16:29 Hold Purple Top Anion Gap Estim Creat Clear Calc Estimated GFR POC Glucose 197 H Random Glucose Estimat Average Glucose Hemoglobin A1c % Calcium Respiratory Panel Mcke[place] Adenovirus (Rapid PCR) B.pert (TEM-PCR) B.parapertussis DNA PCR C. pneumoniae DNA (PCR) Coronavirus OC43 (PCR) Coronavirus HKU1 (PCR) Coronavirus 229E (PCR) Coronavirus NL63 (PCR) Human Metapneumovir PCR Influenza A (RT-PCR) Influenza A (H1) PCR Influ A (H1) PCR Influenza A (H3) PCR Influenza B (RT-PCR) M. pneumoniae (PCR) Parainfluenza 1 (PCR) Parainfluenza 2 (PCR) Parainfluenza 3 (PCR) Parainfluenza 4 (PCR) RSV (PCR) Entero/Rhino (PCR) SARS-CoV-2 RNA (RT-PCR) Assessment and Plan (1) COPD exacerbation: Status: Resolved Plan 48-year-old male with pertinent history of insulin-dependent diabetes mellitus, hypertension, mood disorder, COPD on prn 2-3L O2, alcohol use disorder, congestive heart failure reduced EF admitted to our facility due to COPD exacerbation Acute COPD exacerbation CXR negative for any acute cardiopulmonary abnormality Chronic hypoxemic respiratory failure at baseline. Keep O2 88-90% respiratory panel neg IV Solu-Medrol, DuoNebs HFrEF Given multiple doses of IV diuretics in the ED. Currently euvolemic, continue p.o. diuretics Chest pain, resolved EKG without ischemic changes, troponins flat at 7.2 and 8.5 Likely pleuritic Alcohol use disorder Relapse 3 days ago. Reports 1 time use Monitor on CIWA; CIWA 0 so far IV Valium p.r.n. Acute lower abdominal pain Question ileus. UA normal Pain medications and antiemetics p.r.n. Hyperlipidemia Statin Type 2 diabetes POC is has been difficult to control likely secondary to steroid use Pt has insulin pump; pt unsure if cartilage is empty Will place on Lantus 15 units daily POC glucose, diabetic diet Sliding scale Hypomagnesemia Secondary to alcohol use, repleted GERD PPI and Carafate Tobacco dependence Nicotine replacement therapy DVT prophylaxis-Lovenox Full code Ongoing inpatient stay due to COPD exacerbation requiring IV steroids and close monitoring of respiratory status Quality Stroke Does the patient have a stroke diagnosis?: No VTE Prior VTE?: No VTE Risk Level:: Medical - moderate - high VTE Device Contraindication: Treatment Not Indicated VTE Drug Contraindication: N/A - Med Ordered
[2025-06-16] VITALS: BP 142/82; PULSE 97; RESP 18; TEMP 37; O2SAT 97
[2025-06-16 04:00] VITALS: BP 144/74; PULSE 97; RESP 17; TEMP 36.4; O2SAT 100
[2025-06-16 06:59] LABS: Glucose, Whole Blood 353 mg/dL (60-115)
[2025-06-16 07:09] VITALS: BP 156/79; PULSE 93; RESP 20; TEMP 36.6; O2SAT 96
[2025-06-16] MEDS: Ferrous Sulfate 324 MG TABLET.DR PO (08:12)
[2025-06-16] MEDS: Aspirin Enteric Coated 81 MG TABLET.DR PO (08:12)
[2025-06-16] MEDS: Metoprolol Succinate ER 100 MG TAB.ER.24H PO (08:12)
[2025-06-16] MEDS: Nicotine 14 MG PATCH.TD24 TRANSDERMA (08:13)
[2025-06-16] MEDS: Thiamine HCL 100 MG in 0.9 % Sodium Chloride 100 ML 202 MG IV (08:13)
[2025-06-16] MEDS: Insulin Glargine,Hum.rec.anlog 100 UNIT/ML 10 ML VIAL 15 UNIT SUBCUT (08:14)
[2025-06-16] MEDS: 0.9 % Sodium Chloride Flush 3 ML SYRINGE IVFLUSH (08:15)
[2025-06-16] MEDS: Albuterol/Iprat 2.5/0.5MG 3 ML AMPUL.NEB INHALE ×2 (08:22→11:38)
[2025-06-16 08:23] VITALS: PULSE 102; RESP 18; O2SAT 97
--- NOTE | 2025-06-16 11:00 | PM.DS ---
DS: Providers Provider Date of Service: 06/16/25 Date of admission: 06/13/25 17:56 Date of discharge: 06/16/25 Primary care physician: Zari Henry MD DS: Diagnosis Discharge Diagnosis (1) COPD exacerbation: Status: Resolved DS: Summary Hospital Course Hospital Course: From admission HPI: Date of Service: 06/13/25 Attending physician on admission: Samantha Chowdhury Chief Complaint: Multiple complaints Ciara Quiroga is 49 years old man with past medical history significant for CHF, COPD on oxygen, PAD, essential hypertension, hyperlipidemia and type 2 diabetes on insulin presents to the emergency department with multiple complaints including: Shortness on breath, cough, wheezing, chest, lower abdominal pain, nausea, dry heaving and diarrhea. No fever or chills reported. He has an ongoing tobacco smoker, smoked 10 cigarettes per day. He also smoked marijuana and drink alcohol. He was unclear how many drinks daily or when was the last time. In the ED, he was found to have hypertension and tachycardia. There is no fever and oxygen saturation is 98 on room%. Blood count showed no leukocytosis, hemoglobin is 11.1 at baseline and platelets are normal. INR is 1.0. There are no significant electrolyte imbalances except for hypomagnesemia of 1.5. Glucose is 265. Renal function is normal and there is no acidosis. LFTs are elevated with normal bilirubin. ETOH level is < 10. Viral serology for COVID-19, influenza and RSV is negative. CXR is negative. Abdominal pelvis CT scan without contrast showed no hydronephrosis or nephrolithiasis, consider ileus, bilateral adrenal hyperplasia, small umbilical hernia anesthetic chloride disease in the iliac arteries. ECG showed sinus tachycardia, heart rate 102 bpm without acute ischemic changes. ED tx: Furosemide 20 mg IV, Bumex 0.5 mg IV, Zofran 4 mg IV, magnesium 2 g IV, morphine 4 mg IV, Benadryl 12.5 mg IV, hydralazine 10 mg IV, amlodipine 5 mg p.o., metoprolol 100 mg p.o., hydralazine 100 mg p.o., lorazepam 2 mg p.o. Hospital course: Pt was admitted to the hospital for multiple complaints, including concern for acute COPD exacerbation. pt was treated with IV steroids and bronchodilator therapy to good effect and was eventually weaned to home O2. Lungs have been CTA since yesterday. Pt no longer experiencing significant SOB or difficulty breathing. Pt was aggressively diuresed with IV Lasix in the ED, though appeared euvolemic by the time he reached the hospital floor and was subsequently treated only with his home p.o. diuretics. Pt was also noted to be hyperglycemic while on the floor sugars as high of the 500s. Pt has insulin pump, though cartridge was empty; hyperglycemia likely multifactorial: secondary to IV steroids as well as not adhering to a diabetic diet with his home snacks. Pt now feels back to baseline and will be discharged on p.o. prednisone 20 mg daily x3 days. For chronic back and leg pain, pt will be referred to [facility] [place]. For hyperglycemia and insulin-dependent type 2 diabetes, pt should continue with his insulin pump at home. He is strongly encouraged to adhere to diabetic diet and snacking. For CHF, continue home torsemide and ARB For HLD continue atorvastatin For HTN continue amlodipine, hydralazine, and losartan Pt should continue all of his other home medications Time Attestation Discharge Coordination Time (in mins): 38 Quality: Safe Use of Opioids Does Pt have an Active Cancer Diagnosis on the Problem List?: No Quality: Stroke Does the patient have a stroke diagnosis?: No Physical Exam Exam: Exam: General: AOx3, no acute distress Resp: CTA bilaterally though diminished CVS: S1, S2, RRR GI: +BS, NT, no distention Skin: Warm, dry Neuro: Cranial nerves II-XII grossly intact bilaterally. Motor grossly intact bilaterally Extremities: No edema Psych: Appropriate affect Vital Signs: Vital Signs: Last Vital Signs Temp 97.9 F 06/16/25 07:09 Pulse 102 H 06/16/25 08:23 Resp 18 06/16/25 08:23 BP 156/79 H 06/16/25 07:09 Pulse Ox 96 06/16/25 07:09 O2 Del Method Nasal Cannula 06/16/25 07:09 O2 Flow Rate 2 06/16/25 07:09 BMI result Body Mass Index 20.9 DS: Data Data Completed and Pending Completed studies during hospitalization [Text1]: Procedures Assistance with Respiratory Ventilation, Less than 24 Consecutive Hours, Continuous Positive Airway Pressure (11/19/24) Detoxification Services for Substance Abuse Treatment (04/26/24) Excision of Esophagus, Via Natural or Artificial Opening Endoscopic, Diagnostic (04/26/24) Excision of Stomach, Pylorus, Via Natural or Artificial Opening Endoscopic, Diagnostic (04/26/24) Introduction of Remdesivir Anti-infective into Peripheral Vein, Percutaneous Approach, [employer] (12/22/23) Labs on day of discharge: Laboratory Results - last 24 hr 06/14/25 06/15/25 06/15/25 16:05 07:33 11:18 POC Glucose 459 H* Estimat Average Glucose 186 Hemoglobin A1c % 8.1 H Respiratory Panel Mckeon See Note Adenovirus (Rapid PCR) Not Detected B.pert (TEM-PCR) Not Detected B.parapertussis DNA PCR Not Detected C. pneumoniae DNA (PCR) Not Detected Coronavirus OC43 (PCR) Not Detected Coronavirus HKU1 (PCR) Not Detected Coronavirus 229E (PCR) Not Detected Coronavirus NL63 (PCR) Not Detected Human Metapneumovir PCR Not Detected Influenza A (RT-PCR) Not Detected Influenza A (H1) PCR Not Detected Influ A (H1/) PCR Not Detected Influenza A (H3) PCR Not Detected Influenza B (RT-PCR) Not Detected M. pneumoniae (PCR) Not Detected Parainfluenza 1 (PCR) Not Detected Parainfluenza 2 (PCR) Not Detected Parainfluenza 3 (PCR) Not Detected Parainfluenza 4 (PCR) Not Detected RSV (PCR) Not Detected Entero/Rhino (PCR) Not Detected SARS-CoV-2 RNA (RT-PCR) Not Detected 06/15/25 06/16/25 16:29 06:53 POC Glucose 197 H 353 H* Estimat Average Glucose Hemoglobin A1c % Respiratory Panel Mcke[place] Adenovirus (Rapid PCR) B.pert (TEM-PCR) B.parapertussis DNA PCR C. pneumoniae DNA (PCR) Coronavirus OC43 (PCR) Coronavirus HKU1 (PCR) Coronavirus 229E (PCR) Coronavirus NL63 (PCR) Human Metapneumovir PCR Influenza A (RT-PCR) Influenza A (H1) PCR Influ A (H1/09) PCR Influenza A (H3) PCR Influenza B (RT-PCR) M. pneumoniae (PCR) Parainfluenza 1 (PCR) Parainfluenza 2 (PCR) Parainfluenza 3 (PCR) Parainfluenza 4 (PCR) RSV (PCR) Entero/Rhino (PCR) SARS-CoV-2 RNA (RT-PCR) Discharge Plan Discharge Anticipated Discharge Date/Time: 06/16/25 10:35 Patient Disposition: Home Health Service Discharge Diagnosis: Acute COPD exacerbation Referrals: [facility] [Provider Group, Pain Management] - 1 Week Referral Note: Chronic lower back and leg pain [facility] [Outside] - 1 Week Zari Henry MD [Primary Care Provider, Internal Medicine] - 1 Week Discharge Medications: New prednisone 20 mg tablet 20 mg PO DAILY Qty: 3 0RF Rx Instructions: Take one tablet once a day for the next three days for COPD exacerbation Continued hydralazine 100 mg tablet 100 mg PO TID 30 Days Qty: 90 5RF trazodone 50 mg tablet 100 mg PO BEDTIME escitalopram oxalate 10 mg tablet 10 mg PO DAILY atorvastatin 40 mg tablet 40 mg PO DAILY metoprolol succinate 100 mg tablet extended release 24 hr 100 mg PO DAILY amlodipine 5 mg tablet 10 mg PO DAILY omeprazole 40 mg capsule,delayed release(DR/EC) 40 mg PO DAILY@0630 sucralfate 1 gram tablet 1 g PO QID ferrous sulfate [iron] 325 mg (65 mg iron) tablet 325 mg PO DAILY Qty: 30 0RF (DME) Omnipod 5 G6 Intro Kit (Gen 5) Cartridge SUBCUT insulin lispro 100 unit/mL solution 100 unit DIRECTED Rx Instructions: INJECT up to 100 UNITS DIRECTED SEE ADMIN INSTRUCTIONS. USE PER INSULIN PUMP torsemide 20 mg tablet 40 mg PO BEDTIME torsemide 20 mg tablet 60 mg PO DAILY magnesium oxide 400 mg (241.3 mg magnesium) tablet 400 mg PO DAILY losartan 25 mg tablet 25 mg PO DAILY albuterol sulfate 2.5 mg /3 mL (0.083 %) solution for nebulization 2.5 mg inhalation Q6H PRN (Reason: wheezing) nicotine 21 mg/24 hr patch 24 hour 21 mg transdermal DAILY PRN (Reason: Smoking Cessation) aspirin 81 mg tablet,delayed release (DR/EC) 81 mg PO DAILY Discharge Orders: Discharge Order (Routine); Ordered 06/16/25 Ordered By: Martin Carey Activity on Discharge: As tolerated Stand Alone Forms: Patient Portal Discharge page Print Language: Ukrainian Care Plan Goals: See below Health Concerns: COPD exacerbation Acute on chronic hypoxic respiratory failure CHF exacerbation Alcohol withdrawal Plan of Treatment: Admitted to the hospital for dyspnea concerning for acute COPD exacerbation and possible CHF exacerbation. You were treated with IV diuretics in the ED to good effec. You are also treated with supplemental oxygen, bronchodilator therapy, and IV steroids on the hospital floor. You were not found to have an underlying pneumonia and not treated with antibiotics. You will be discharged home on a short course of oral prednisone. --take prednisone 20 mg daily for the next 3 days --continue home inhalers --for hypomagnesemia, continue magnesium supplementation --for chronic back and leg pain, you will be referred to the [facility] pain clinic --for CHF continue home torsemide --for diabetes, continue home insulin pump and adhere to a diabetic diet --continue all of your other home medications Assessment: See discharge summary
[2025-06-16 11:03] LABS: Glucose, Whole Blood 454 mg/dL (60-115)
--- NOTE | 2025-06-16 11:03 | MHC.CM.PN ---
Patient has been medically cleared for dc to home, with services. Patient is active with [facility], who has been made aware of today's dc. Patient will return home via [facility] [place] Shuttle at 12:30PM; RN is aware.
[2025-06-16 11:08] VITALS: BP 116/63; PULSE 99; RESP 20; TEMP 36.2; O2SAT 98
[2025-06-16 11:39] VITALS: PULSE 88; RESP 18; O2SAT 96
[2025-06-16 16:02] LABS: Glucose, Whole Blood 203 mg/dL (60-115)
== END 2025-06-16 12:30 | disposition home health service (06) | DRG 140 ==
LOC: HO.ED 17:53 → HO.EDOVER 18:02 → HO.IMC 06-14 11:34
PROVIDERS: Internal Medicine; Physician Assistant; Registered Nurse Emergency; Admitting Provider Internal Medicine; Emergency Provider Emergency Medicine; PCP Internal Medicine; Visit Provider Student in an Organized Health Care Education/Training Program
DX: J44.1 Chronic obstructive pulmonary disease with (acute) exacerbation (principal); J96.21 Acute and chronic respiratory failure with hypoxia; E11.22 Type 2 diabetes mellitus with diabetic chronic kidney disease; I13.0 Hypertensive heart and chronic kidney disease with heart failure and stage 1 through stage 4 chronic kidney disease, or unspecified chronic kidney disease; I50.32 Chronic diastolic (congestive) heart failure; K56.7 Ileus, unspecified; D63.1 Anemia in chronic kidney disease; Z99.81 Dependence on supplemental oxygen; K52.9 Noninfective gastroenteritis and colitis, unspecified; N18.1 Chronic kidney disease, stage 1; K21.9 Gastro-esophageal reflux disease without esophagitis; E83.42 Hypomagnesemia; F17.210 Nicotine dependence, cigarettes, uncomplicated; Z71.6 Tobacco abuse counseling; E78.5 Hyperlipidemia, unspecified; Z96.41 Presence of insulin pump (external) (internal); Z20.822 Contact with and (suspected) exposure to COVID-19; Z79.4 Long term (current) use of insulin; Z79.82 Long term (current) use of aspirin; Z79.899 Other long term (current) drug therapy
CPT/HCPCS: 36415; 71046; 76705; 80048; 80053; 80307; 81001; 82947; 83036; 83735; 83880; 84484; 85025; 85027; 85610; 87633; 87637; 93005; 94640; 99285; J0360; J1171; J1200; J1650; J1939; J2270; J2405; J2919; J3360; J3411; J3475

== ENCOUNTER → 2025-06-13 09:28 | Outpatient (BNV) | payer OTHER, SELFPAY | PROVIDERS: Admitting Provider Internal Medicine; Emergency Provider Emergency Medicine; PCP Internal Medicine; Visit Provider Internal Medicine Cardiovascular Disease | DX: R00.0 Tachycardia, unspecified (principal) | CPT/HCPCS: 93010 ==

== ENCOUNTER → 2025-06-13 09:31 | Outpatient (BNV) | payer OTHER, SELFPAY | PROVIDERS: Emergency Provider Emergency Medicine; PCP Internal Medicine; Visit Provider Radiology Diagnostic Radiology | DX: N28.1 Cyst of kidney, acquired (principal); R06.00 Dyspnea, unspecified | CPT/HCPCS: 71046; 76705 ==

== ENCOUNTER → 2025-06-13 17:56 | Outpatient (BNV) | payer OTHER, SELFPAY | PROVIDERS: Admitting Provider Internal Medicine; Emergency Provider Emergency Medicine; PCP Internal Medicine; Visit Provider Internal Medicine | DX: F10.930 Alcohol use, unspecified with withdrawal, uncomplicated (principal) | CPT/HCPCS: 99223; 99232; 99233 ==

== ENCOUNTER 2025-06-20 14:25 | Emergency (ER) | payer OTHER, SELFPAY ==
--- NOTE | ~2025-06-20 | XR_ITS ---
CLINICAL HISTORY: dyspnea 2 view chest x-ray. Comparison: 06/13/2025, 03/21/2025 Findings: No consolidation. Heart size normal. No acute fracture. Impression: Lungs are clear. This document has been electronically signed by: Tiago Coronel MD on 06/20/2025 18:20:35
[2025-06-20 14:30] VITALS: BP 152/70; PULSE 127; RESP 18; TEMP 36.8; O2SAT 98; BMI 21.5
--- NOTE | 2025-06-20 14:31 | ECG_ITS ---
Test Reason : tachy Blood Pressure : */* mmHG Vent. Rate : 111 BPM Atrial Rate : 111 BPM P-R Int : 122 ms QRS Dur : 82 ms QT Int : 322 ms P-R-T Axes : 48 25 16 degrees QTcB Int : 437 ms Sinus tachycardia Nonspecific T wave abnormality Abnormal ECG No previous ECGs available Referred By: Mik Olmstead Electronically Signed By: INOCENCIO BERGMAN MD
--- NOTE | 2025-06-20 14:31 | ED.GENADULT ---
HPI - General Adult General Chief complaint: General Medical Stated complaint: SOB Dizzy ? Tachycardia Time Seen by Provider: 06/20/25 17:05 Source: patient Mode of arrival: ambulatory Limitations: no limitations History of Present Illness ED Provider: HPI narrative: 49-year-old male with multiple medical problems including heart failure with preserved EF 55 % based on prior Stress test 2024, KELVIN, alcohol use disorder, was discharged 4 days ago from the hospital, went to see his PCP and was sent to the ER because he was tachycardic and hypotensive, patient endorses taking all his medications regular basis, he states his sugars have been under good control at home, he has been having shortness of breath, nonspecific chest pain, denies ongoing drug or alcohol use. Continues to use tobacco. He also endorses quite a bit of anxiety and states his PCP increase his Lexapro Related Data Home Medications ?Medication ?Instructions ?Recorded ?Confirmed escitalopram oxalate 10 mg tablet 10 mg PO DAILY 08/01/22 06/13/25 trazodone 50 mg tablet 100 mg PO BEDTIME 08/01/22 06/13/25 aspirin 81 mg tablet,delayed 81 mg PO DAILY 10/06/22 06/13/25 release atorvastatin 40 mg tablet 40 mg PO DAILY 10/06/22 06/13/25 metoprolol succinate 100 mg 100 mg PO DAILY 10/06/22 06/13/25 tablet,extended release 24 hr amlodipine 5 mg tablet 10 mg PO DAILY 06/02/24 06/13/25 insulin pump cartridge,automated 06/11/24 03/14/25 dose,BT with controller subcutaneous (Omnipod 5 G6 Intro Kit (Gen 5) subcutaneous cartridge with controller) omeprazole 40 mg capsule,delayed 40 mg PO DAILY@0630 07/15/24 06/13/25 release insulin lispro 100 unit/mL 100 unit DIRECTED 11/19/24 06/13/25 subcutaneous solution sucralfate 1 gram tablet 1 g PO QID 01/14/25 06/13/25 torsemide 20 mg tablet 40 mg PO BEDTIME 05/28/25 06/13/25 torsemide 20 mg tablet 60 mg PO DAILY 05/28/25 06/13/25 albuterol sulfate 2.5 mg/3 mL 2.5 mg inhalation Q6H PRN wheezing 06/13/25 06/13/25 (0.083 %) solution for nebulization losartan 25 mg tablet 25 mg PO DAILY 06/13/25 06/13/25 magnesium oxide 400 mg (241.3 mg 400 mg PO DAILY 06/13/25 06/13/25 magnesium) tablet nicotine 21 mg/24 hr daily 21 mg transdermal DAILY PRN 06/13/25 06/13/25 transdermal patch Smoking Cessation Previous Rx's ?Medication ?Instructions ?Recorded hydralazine 100 mg tablet 100 mg PO TID 30 days #90 tabs 05/09/23 ferrous sulfate 325 mg (65 mg 325 mg PO DAILY #30 tabs 01/15/25 iron) tablet (iron) prednisone 20 mg tablet 20 mg PO DAILY #3 tabs 06/16/25 Allergies Allergy/AdvReac Type Severity Reaction Status Date / Time dulaglutide (From [facility] [address]) Allergy Unknown Verified 06/20/25 14:32 metformin (METFORMIN) AdvReac Mild DIARRHEA, Verified 06/20/25 14:32 nausea and vomiting Review of Systems Constitutional: Constitutional: Reports as per [facility] Past Medical History Medical History Tobacco use CKD (chronic kidney disease) stage 1, GFR 90 ml/min or greater YARELIS (obstructive sleep apnea) Acute on chronic diastolic (congestive) heart failure KELVIN (acute kidney injury) Chronic heart failure with preserved ejection fraction (HFpEF) Depression Acute on chronic anemia Anxiety HLD (hyperlipidemia) Diabetes HTN (hypertension) Asthma PAD (peripheral artery disease) Surgical History History of esophagogastroduodenoscopy S/P angiogram of extremity Family History Family History Father Alzheimer disease CAD (coronary artery disease) Social History Social History Household Members: None Household Members Other:: 4 Housing: Apartment Do you presently have visiting nurse or other home services: Yes Unable to assess alcohol history related to: Unknown Alcohol intake: current Alcohol intake frequency: 0-2 drinks per day Alcohol type: hard liquor Comment: pt is independent in room Patient Tobacco Use Status: Tobacco use Unknown Tobacco use type: Cigarette Cigarette Packs Per Day: 1 Cigarettes Per Day: 10 Years Smoked: 33 years e-Cigarette/Vaping Use: Currently Using Second Hand Smoke Exposure: No Substance Use Type: Marijuana Advance Directives: Yes Advance Directives on File: Yes Advance Directives Date on File: 06/21/21 service: No Current occupational status: disabled Physical Exam ED Vital Signs: Vital Signs - 24 hr 06/20/25 14:30 06/20/25 18:00 Temperature 98.2 F 98.6 F Pulse Rate 127 H 103 H Respiratory Rate 18 13 Blood Pressure 152/70 H 154/75 H Pulse Oximetry 98 97 Oxygen Delivery Method Room Air Room Air BMI result Body Mass Index 21.5 Const Other: Gen: ?Slightly older than stated age, somewhat anxious affect HEENT: , dry oral mucosa, no jaundice, no scleral icterus Neck: Supple, no LAD CV: Tachycardic and regular Resp: Mild expiratory wheezing, consistent with smokers lungs, no rales no rhonchi overall moving air well Abd: ?Bowel sounds are present, no tenderness no rebound no rigidity MSK: FROM, strength 5/5 all extremities Skin: Warm, dry, intact, no lower extremity edema Neuro: ?Alert and oriented x3, moving upper and lower extremities symmetrically, no obvious facial asymmetry noted Course Course Course Narrative: RME, this is a rapid medical exam performed by Zeeshan Olmstead please refer to primary provider for complete H&P- 49-year-old male with past medical history significant for CHF COPD, peripheral artery disease, hypertension, hyperlipidemia, type 2 diabetes presents for evaluation of dizziness, shortness of breath, chest pain. He was recently admitted for similar. Plan for repeat labs, EKG. The patient reports that he has not had a drink of alcohol over a month Medications Administered Discontinued Medications Generic Name Dose Route Start Last Admin Trade Name Freq PRN Reason Stop Dose Admin Diazepam 2.5 mg 06/20/25 17:48 06/20/25 18:03 Diazepam 10 Mg/2 Ml Cartridge IVPUSH 06/20/25 17:49 2.5 mg STAT STA Administration Diazepam 4 mg 06/20/25 18:55 06/20/25 19:17 Diazepam 2 Mg Tablet PO 06/20/25 18:56 4 mg ONCE ONE Administration Sodium Chloride 1,000 mls @ 999 mls/hr 06/20/25 17:45 06/20/25 18:03 Ns IV 06/20/25 18:45 999 mls/hr .Q1H1M DIONISIO Administration Sodium Chloride 500 mls @ 500 mls/hr 06/20/25 19:00 06/20/25 19:22 Ns IV 06/20/25 19:59 500 mls/hr .Q1H DIONISIO Administration Medical Decision Making Medical Decision Making [facility] Narrative: Patient is presenting with tachycardia and slight hypotension, anxious affect, he states that he has not had alcohol for over a month and he denies any other drug use, he does continue to use tobacco and we had education regarding that, chest x-ray without pneumonia, pneumothorax or pulmonary edema, no pleural effusions, no consolidations, he has had worsening renal function and I suspect that is the cause for his tachycardia, leukocytosis more or less chronic consistent with smoking, BUN elevated, and creatinine elevated so we will give fluids, he does not have an anion gap elevation to suspect underlying DKA, cardiac enzyme unremarkable, she did take his medications for high blood pressure today, we will medicate for anxiety as he does feel anxious, we will give fluids we will re-evaluate make sure he is tachycardic is improving. Disposition to be determined 19:00 patient re-evaluated, he states he is beginning to feel better, we will give another half a L of IV fluids, and then recheck his creatinine started on Valium, I believe a lot does have to do with anxiety quit smoking for a month ago and he states he has been feeling this way for the past 4 weeks 20:53 patient re-evaluated at this point he is no longer anxious, his anxious affect is completely gone, his heart rate is down to 87, I rechecked his creatinine in his renal function is improving, he does have history of CKD and gets worse when he gets admitted over diuresed, I am going to refer him back to his PCP for monitoring after ED visit Differential Diagnosis Differential Diagnoses: The differential diagnosis associated with the presentation includes (Dehydration, DKA, PE, CHF, COPD, ACS, pneumonia, alcohol withdrawal) Admission/Observation Consideration of admission/observation: Escalation of care including admission/observation considered 2022 Emergency Medicine Coding Guide from [email or web address] on 06/20/2025 All calculations should be rechecked by clinician prior to use RESULT SUMMARY: 5 Estimated Level of Service Problems: High (5) Risk: High (5) Data: Extensive (5) NARRATIVE MDM: This patient's problem complexity is High as patient: with chronic illness(es) with severe exacerbation/progression/side effects. This patient's risk is High due to: overall presentation requiring evaluation for a potentially High-risk process. This patient's data complexity is Extensive due to: -multiple tests ordered/reviewed -independent interpretation of imaging or EKG INPUTS: Number and Complexity ?> 1 = 5: chronic illness w/severe exacerbation (a) Risk level ?> 4 = High Tests ordered ?> 3 = =3 Tests results reviewed (excluding labs) ?> 2 = 2 Prior external notes reviewed ?> 0 = 0 Assessment requiring and independent historian ?> 0 = No Independent interpretation of tests ?> 1 = Yes Discussed management/test interpretation w/external professional ?> 0 = No Lab Data 06/20/25 14:48 06/20/25 19:11 Labs: Lab Results 06/20/25 06/20/25 06/20/25 Range/Units 14:48 17:52 19:11 WBC 12.7 H (4.8-10.8) X10*3/uL RBC 3.62 L (4.60-5.80) X10*6/uL Hgb 10.5 L (14.0-18.0) g/dl Hct 30.3 L (42.0-52.0) % MCV 83.7 (80.0-98.0) fL MCH 29.0 (27.0-33.0) pg MCHC 34.7 (31.0-36.0) g/dl RDW 19.7 H (11.0-16.0) % Plt Count 239 (160-400) X10*3/uL MPV 10.2 (9.4-12.4) fL Immature Gran % (Auto) 1.3 H (0.0-0.4) % Neut % (Auto) 76.1 H (45-73) % Lymph % (Auto) 12.7 L (20-40) % Mcintosh % (Auto) 9.7 (2-11) % Eos % (Auto) 0.1 (0-4) % Baso % (Auto) 0.1 (0-2) % Lymph # (Auto) 1.6 (1.2-4.9) X10*3/uL Mcintosh # (Auto) 1.2 (0.1-1.2) X10*3/uL Eos # (Auto) 0.0 (0.0-0.4) X10*3/uL Baso # (Auto) 0.0 (0.0-0.2) X10*3/uL Abs Immat Gran (auto) 0.16 H (0.00-0.03) X10*3/uL Absolute Neuts (auto) 9.7 H (2.0-8.3) x10*3/uL Absolute Nucleated RBC 0.000 (0.0-0.012) X10*3/uL Nucleated RBC % (auto) 0.0 (0.0-0.2) /100WBC Sodium 141 (135-145) mmol/L Potassium 3.5 (3.3-5.1) mmol/L Chloride 100 (96-108) mmol/L Carbon Dioxide 27 (22-29) mmol/L Anion Gap 18 (12-20) BUN 65 H (9-16) mg/dL Creatinine 1.91 H 1.63 H (0.5-1.4) mg/dL Estim Creat Clear Calc 38.2 44.8 Estimated GFR 37 45 Random Glucose 186 H (60-115) mg/dL Calcium 9.0 D (8.4-10.2) mg/dL Magnesium 1.7 (1.6-2.6) mg/dL Total Bilirubin 0.4 (0.0-1.0) mg/dL AST 91 H (5-37) U/L ALT 62 H (0-40) U/L Alkaline Phosphatase 89 (39-117) U/L Troponin I High Sens 10.9 10.8 (<3.5-35.0) ng/L Total Protein 6.6 (6.5-8.0) g/dL Albumin 4.1 (3.5-5.0) g/dL Lipase 56 (8-78) U/L Beta-Hydroxybutyrate 0.10 0.11 (0.02-0.27) mmol/L Urine Color Yellow Urine Appearance Clear Urine pH 6.5 (5.0-9.0) Ur Specific Leander 1.010 (1.005-1.025) Urine Protein 30 (1+) H (Neg-Trace) mg/dL Urine Glucose (UA) Negative (Negative) mg/dL Urine Ketones Negative (Negative) mg/dL Urine Blood Negative (Negative) Urine Nitrite Negative (Negative) Ur Leukocyte Esterase Negative (Negative) Urine RBC 0-2 (0-2) /HPF Urine WBC 0-5 (0-5) /HPF Ur Squamous Epith Cells 0-2 (0-2) /HPF Urine Bacteria None Seen (None Seen) Hyaline Casts 0-2 (0-2) /LPF Ethyl Alcohol < 10 mg/dL Critical Care Time Critical Care Time Critical Care Time: Yes Total Critical Care Time: 45 Attestation: Time is exclusive of separately billable procedures. Time includes: direct patient care, patient reassessment, coordination of patient care, interpretation of data (laboratory data, pulse oximetry, arterial blood gases and chest xrays), review of patient's medical records, medical consultation and documentation of patient care. Procedures excluded from critical care time: central intravenous line placement and electrocardiography. Discharge Plan Discharge Clinical Impression: Tachycardia, Acute kidney injury superimposed on CKD, Anxiety, Hx of insulin dependent diabetes mellitus Patient Disposition: Home, Self-Care Instructions: Tachycardia (ED) Additional Instructions: Evaluated after recent admission to the hospital then follow up with the PCP and presenting with elevated heart rate and increased blood pressure, a blood pressure component I am not too worried about, your heart rate was fast, it improved with medications for anxiety and I know your Lexapro has been increased, and part of it was likely to the fact that you are dehydrated, continue staying hydrated, avoid salt, and I would like you to follow up with the PCP in 1 week continue your other medications without change any other issues or concerns come back to the ER Prescriptions: No Action hydralazine 100 mg tablet 100 mg PO TID 30 Days Qty: 90 5RF trazodone 50 mg tablet 100 mg PO BEDTIME escitalopram oxalate 10 mg tablet 10 mg PO DAILY atorvastatin 40 mg tablet 40 mg PO DAILY metoprolol succinate 100 mg tablet extended release 24 hr 100 mg PO DAILY amlodipine 5 mg tablet 10 mg PO DAILY omeprazole 40 mg capsule,delayed release(DR/EC) 40 mg PO DAILY@0630 sucralfate 1 gram tablet 1 g PO QID ferrous sulfate [iron] 325 mg (65 mg iron) tablet 325 mg PO DAILY Qty: 30 0RF (DME) Omnipod 5 G6 Intro Kit (Gen 5) Cartridge SUBCUT insulin lispro 100 unit/mL solution 100 unit DIRECTED Rx Instructions: INJECT up to 100 UNITS DIRECTED SEE ADMIN INSTRUCTIONS. USE PER INSULIN PUMP torsemide 20 mg tablet 40 mg PO BEDTIME torsemide 20 mg tablet 60 mg PO DAILY magnesium oxide 400 mg (241.3 mg magnesium) tablet 400 mg PO DAILY losartan 25 mg tablet 25 mg PO DAILY albuterol sulfate 2.5 mg /3 mL (0.083 %) solution for nebulization 2.5 mg inhalation Q6H PRN (Reason: wheezing) nicotine 21 mg/24 hr patch 24 hour 21 mg transdermal DAILY PRN (Reason: Smoking Cessation) prednisone 20 mg tablet 20 mg PO DAILY Qty: 3 0RF Rx Instructions: Take one tablet once a day for the next three days for COPD exacerbation aspirin 81 mg tablet,delayed release (DR/EC) 81 mg PO DAILY Referrals: Zari Henry MD [Primary Care Provider, Internal Medicine] - 1 week Clinical Impression: Hx of insulin dependent diabetes mellitus; Tachycardia; Acute kidney injury superimposed on CKD Print Language: Comoran
[2025-06-20 14:53] LABS: MANUAL DIFF FLAG NO
[2025-06-20 14:56] LABS: Hematocrit 30.3 % (42.0-52.0); Hemoglobin 10.5 g/dl (14.0-18.0); Imm Gran Abs Auto 0.16 X10*3/uL (0.00-0.03); Imm Gran Pct Auto 1.3 % (0.0-0.4); Lymphocytes Absolute Auto 1.6 X10*3/uL (1.2-4.9); Mean Corpuscular HGB Conc 34.7 g/dl (31.0-36.0); Mean Corpuscular Hemoglobin 29.0 pg (27.0-33.0); Mean Corpuscular Volume 83.7 fL (80.0-98.0); NRBC Abs Auto 0.000 X10*3/uL (0.0-0.012); NRBC Pct Auto 0.0 /100WBC (0.0-0.2); Platelet Count 239 X10*3/uL (160-400); Red Blood Count 3.62 X10*6/uL (4.60-5.80); White Blood Count 12.7 X10*3/uL (4.8-10.8)
[2025-06-20 15:18] LABS: Alanine Aminotransferase 62 U/L (0-40); Albumin Level 4.1 g/dL (3.5-5.0); Alkaline Phosphatase 89 U/L (39-117); Anion Gap 18 (12-20); Aspartate Amino Transferase 91 U/L (5-37); Blood Urea Nitrogen 65 mg/dL (9-16); Calcium 9.0 mg/dL (8.4-10.2); Carbon Dioxide 27 mmol/L (22-29); Chloride 100 mmol/L (96-108); Creatinine Clr Calc Pharmacy 38.2; Estimated Glomerular Filt Rate 37; Lipase 56 U/L (8-78); Magnesium 1.7 mg/dL (1.6-2.6); Potassium 3.5 mmol/L (3.3-5.1); Sodium 141 mmol/L (135-145); Total Protein 6.6 g/dL (6.5-8.0)
[2025-06-20 15:24] LABS: Troponin-I High Sensitivity 10.9 ng/L (<3.5-35.0)
[2025-06-20 18:00] VITALS: BP 154/75; PULSE 103; RESP 13; TEMP 37; O2SAT 97
[2025-06-20] MEDS: diazePAM 10 MG/2 ML CARTRIDGE 2.5 MG IVPUSH (18:03)
[2025-06-20 18:21] LABS: Troponin-I High Sensitivity 10.8 ng/L (<3.5-35.0)
[2025-06-20 19:20] LABS: Appearance Urine Clear; Glucose Urine UA Negative (Negative); PH 6.5 (5.0-9.0); Specific Gravity - Urine 1.010 (1.005-1.025); UMIC TRIGGER UACC YES
[2025-06-20 19:33] LABS: Creatinine Clr Calc Pharmacy 44.8; Estimated Glomerular Filt Rate 45
[2025-06-20 20:00] VITALS: BP 166/76; PULSE 84; RESP 17; O2SAT 100
[2025-06-20 21:16] VITALS: BP 166/76; PULSE 84; RESP 17; TEMP 36.7; O2SAT 100
== END 2025-06-20 21:16 | disposition home or self-care (01) ==
PROVIDERS: Physician Assistant; Emergency Provider Emergency Medicine; PCP Internal Medicine
DX: R00.0 Tachycardia, unspecified (principal); R06.02 Shortness of breath; R42 Dizziness and giddiness; I95.9 Hypotension, unspecified; F41.9 Anxiety disorder, unspecified; E11.9 Type 2 diabetes mellitus without complications; F17.210 Nicotine dependence, cigarettes, uncomplicated; Z79.899 Other long term (current) drug therapy; Z79.4 Long term (current) use of insulin; Z51.81 Encounter for therapeutic drug level monitoring
CPT/HCPCS: 36415; 71046; 80053; 80307; 81001; 82010; 82565; 83690; 83735; 84484; 85025; 93005; 96361; 96374; 99285; J3360

== ENCOUNTER → 2025-06-20 17:35 | Outpatient (BNV) | payer OTHER, SELFPAY | PROVIDERS: Emergency Provider Emergency Medicine; PCP Internal Medicine; Visit Provider Radiology Diagnostic Radiology | DX: R06.00 Dyspnea, unspecified (principal) | CPT/HCPCS: 71046 ==

== ENCOUNTER 2025-07-01 07:14 | Inpatient (IN) | payer OTHER, SELFPAY ==
[2025-07-01] VITALS (12 sets, daily range): BP systolic 126–178; BP diastolic 76–91; PULSE 77–102; RESP 13–18; TEMP 36.6–37.3; O2SAT 79–99; BMI 21.6
--- NOTE | ~2025-07-01 | US_ITS ---
CLINICAL HISTORY: KELVIN on CKD US renal Comparison: 07/02/2025 Findings: Right kidney 11.4 cm length. No significant focal abnormality. Left kidney 11.2 cm length. No significant focal abnormality. No bilateral hydronephrosis. Normal bilateral renal echogenicity. Impression: No significant abnormalities. This document has been electronically signed by: Kaden Cueva MD on 07/04/2025 20:59:46
--- NOTE | ~2025-07-01 | XR_ITS ---
CLINICAL HISTORY: ? asp pna. alc withdrawal seizures Chest radiograph PA and lateral views Comparison: CR - XR CHEST 2V - 06/20/25 17:45 EDT Findings: Cardiomediastinal silhouette normal. No consolidations.No pleural effusion. No pneumothorax. No free air under the diaphragms. No acute fracture. Soft tissue is unremarkable. Impression: No acute cardiopulmonary finding. This document has been electronically signed by: Zee Garcia MD on 07/02/2025 08:01:32
--- NOTE | ~2025-07-01 | US_ITS ---
CLINICAL HISTORY: RUQ usg to r o cholecystitis US abdomen limited Comparison: US/SR - US ABDOMEN LIMITED - 06/13/25 13:24 EDT Findings: Normally distended gallbladder. No gallbladder wall thickening or pericholecystic fluid. No sludge or gallstone demonstrated. The common duct measures 6 mm in diameter at the jonathon hepatis. No intrahepatic biliary ductal dilatation demonstrated. IMPRESSION: 1. Normal gallbladder and bile ducts. This document has been electronically signed by: Jose Coles MD on 07/02/2025 19:54:46
--- NOTE | ~2025-07-01 | XR_ITS ---
CLINICAL HISTORY: resp distress 1 view chest x-ray Comparison: CR/SR - XR CHEST 2V - 07/02/25 07:21 EDT Findings: Tiny linear focus of atelectasis or scarring within the left lower lung without change. No consolidation or pleural effusion. Heart size is normal. No acute fracture. IMPRESSION: No acute cardiopulmonary disease. This document has been electronically signed by: Karen Begum MD on 07/05/2025 17:58:55
--- NOTE | ~2025-07-01 | CT_ITS ---
EXAMINATION: CT HEAD WITHOUT CONTRAST CLINICAL INFORMATION: syncope COMPARISON: November 03, 2022. TECHNIQUE: Contiguous axial imaging was performed from the skull base to vertex without intravenous administration of contrast. This CT examination was performed using dose optimization techniques as appropriate, variously including the following: *Automated exposure control *Adjustment of mA and/or kV according to patient size (this includes techniques or standardized protocols for targeted exams where dose is matched to indication/reason for exam; i.e. extremities or head) *Use of iterative reconstruction technique DLP: 671 mGy-cm FINDINGS: No acute cortical disruption in the bony calvarium or skull base. No acute intracranial hemorrhage, mass effect, shift, hydrocephalus or herniation. Bernardo-white matter differentiation is normal. Prominence of the extra-axial CSF spaces cerebral sulci and likely related to central volume loss. Posterior cranial fossa contents demonstrated no gross hemorrhage or mass effect. Normal position of the cerebellar tonsils. Sellar/suprasellar region demonstrated no gross masses. Mucosal thickening without air-fluid levels in the paranasal sinuses. Tympanic cavities and mastoid cells are aerated. Pneumatized left petrous apex. The eyeballs are intact. No hematoma, intraconal or extraconal compartments of the orbits. Edentulous, maxilla. CT/CT head/brain wo IV con IMPRESSION: No acute fracture, bony calvarium. No acute intracranial hemorrhage. Stable brain. Electronically signed by: Jayden Camacho MD 07/01/2025 09:04 AM EDT
--- NOTE | 2025-07-01 07:25 | ED.SYNCOPE ---
HPI - Syncope General Chief Complaint: Dizziness Stated Complaint: SYNCOPAL EPISODE 3 DAYS AGO,?SZ,DIZZY PER EMS Time Seen by Provider: 07/01/25 07:23 Source: patient, EMS and old records reviewed Mode of arrival: EMS Limitations: no limitations History of Present Illness ED Provider: lorena bello HPI narrative: 49 year old past medical hx congestive heart failure COPD diabetes upper GI bleed metabolic acidosis. Here today yesterday was sitting on the couch in the evening watching TV and woke up he had vomited on himself and bit his tongue he had no incontinence as brother states that he passed out. His brother did not witness the actual event. Patient states he has not felt well for about a week he has been staying with his brother usually has visiting nurse. After the event he feels weak and he has muscle pain and he has vertigo. It is worse when he stands up. Denies any weakness in his extremities or difficulty with speech. Denies any abdominal pain chest pain or respiratory distress. Spoke to his visiting nurse who told him he should come in and get checked out today MD complaint: loss of consciousness Prodromal symptoms: none Witnessed: Yes - by Bystander ( brother) Related Data Home Medications ?Medication ?Instructions ?Recorded ?Confirmed escitalopram oxalate 10 mg tablet 10 mg PO DAILY 08/01/22 06/13/25 trazodone 50 mg tablet 100 mg PO BEDTIME 08/01/22 06/13/25 aspirin 81 mg tablet,delayed 81 mg PO DAILY 10/06/22 06/13/25 release atorvastatin 40 mg tablet 40 mg PO DAILY 10/06/22 06/13/25 metoprolol succinate 100 mg 100 mg PO DAILY 10/06/22 06/13/25 tablet,extended release 24 hr amlodipine 5 mg tablet 10 mg PO DAILY 06/02/24 06/13/25 insulin pump cartridge,automated 06/11/24 03/14/25 dose,BT with controller subcutaneous (Omnipod 5 G6 Intro Kit (Gen 5) subcutaneous cartridge with controller) omeprazole 40 mg capsule,delayed 40 mg PO DAILY@0630 07/15/24 06/13/25 release insulin lispro 100 unit/mL 100 unit DIRECTED 11/19/24 06/13/25 subcutaneous solution sucralfate 1 gram tablet 1 g PO QID 01/14/25 06/13/25 torsemide 20 mg tablet 40 mg PO BEDTIME 05/28/25 06/13/25 torsemide 20 mg tablet 60 mg PO DAILY 05/28/25 06/13/25 albuterol sulfate 2.5 mg/3 mL 2.5 mg inhalation Q6H PRN wheezing 06/13/25 06/13/25 (0.083 %) solution for nebulization losartan 25 mg tablet 25 mg PO DAILY 06/13/25 06/13/25 magnesium oxide 400 mg (241.3 mg 400 mg PO DAILY 06/13/25 06/13/25 magnesium) tablet nicotine 21 mg/24 hr daily 21 mg transdermal DAILY PRN 06/13/25 06/13/25 transdermal patch Smoking Cessation Previous Rx's ?Medication ?Instructions ?Recorded hydralazine 100 mg tablet 100 mg PO TID 30 days #90 tabs 05/09/23 ferrous sulfate 325 mg (65 mg 325 mg PO DAILY #30 tabs 01/15/25 iron) tablet (iron) prednisone 20 mg tablet 20 mg PO DAILY #3 tabs 06/16/25 Allergies Allergy/AdvReac Type Severity Reaction Status Date / Time dulaglutide (From [facility]) Allergy Unknown Verified 07/01/25 07:51 metformin (METFORMIN) AdvReac Mild DIARRHEA, Verified 07/01/25 07:51 nausea and vomiting Review of Systems Review of Systems: Constitutional : No Fever, No Chills ENT/Mouth : No sore throat, No Rhinorrhea Eyes: No Eye Pain, No Swelling, No Redness Cardiovascular : No Chest Pain, No SOB Respiratory : No Cough, No Sputum Gastrointestinal : No Nausea, No Vomiting, No Diarrhea, No abdominal Pain Genitourinary : No Dysuria, No Hematuria Musculoskeletal : No joint pain, No Myalgias, No Joint Swelling Skin : No Skin Lesions, positive skin rash Neuro : No Weakness, No Numbness, No Headache All other systems reviewed and are negative [facility] Past Medical History Attestation statement: The following information was validated with the patient. Medical History Tobacco use CKD (chronic kidney disease) stage 1, GFR 90 ml/min or greater YARELIS (obstructive sleep apnea) Acute on chronic diastolic (congestive) heart failure KELVIN (acute kidney injury) Chronic heart failure with preserved ejection fraction (HFpEF) Depression Acute on chronic anemia Anxiety HLD (hyperlipidemia) Diabetes HTN (hypertension) Asthma PAD (peripheral artery disease) Surgical History History of esophagogastroduodenoscopy S/P angiogram of extremity Family History Family History Father Alzheimer disease CAD (coronary artery disease) Social History Social History Household Members: None Household Members Other:: 4 Housing: Apartment Do you presently have visiting nurse or other home services: Yes Unable to assess alcohol history related to: Unknown Alcohol intake: former Comment: pt is independent in room Patient Tobacco Use Status: Tobacco use Unknown Tobacco use type: Cigarette Cigarette Packs Per Day: 1 Cigarettes Per Day: 10 Years Smoked: 33 years Smoked in Last 30 Days: Yes e-Cigarette/Vaping Use: Currently Using Second Hand Smoke Exposure: No Use of substances other than those prescribed or required for medical reasons: Yes Substance Use Type: Marijuana Substance Use Frequency: Occasionally Advance Directives: Yes Advance Directives on File: Yes Advance Directives Date on File: 06/21/21 Do you have a plan to hurt others: No Plan service: No Current occupational status: disabled Physical Exam Vital Signs: Vital Signs: Last Vital Signs Temp 97.8 F 07/01/25 07:52 Pulse 96 07/01/25 08:20 Resp 14 07/01/25 08:20 BP 157/76 H 07/01/25 08:20 Pulse Ox 94 07/01/25 08:20 O2 Del Method Nasal Cannula 07/01/25 08:20 O2 Flow Rate 2 07/01/25 08:20 BMI result Body Mass Index 21.6 Appearance: Alert. Oriented X3. No acute distress. Eyes: Pupils equal, round and reactive to light. ENT: Pharynx normal. Neck: Normal inspection. Neck supple. CVS: Normal heart rate and rhythm. Pulses normal. Respiratory: No respiratory distress. Breath sounds normal. Abdomen: Soft and nontender. non distender normal BS Skin: Skin warm and dry. Normal skin color. Extremities: No lower extremity edema. No calf ttp FROM of extemities Neuro: Oriented X 3. Course Course Course Narrative: Patient well-appearing nontoxic non lethargic labs and brain CT pending. Patient ordered 1 L of normal saline and 5 mg IV Valium and I will reassess the patient. Medications Administered Discontinued Medications Generic Name Dose Route Start Last Admin Trade Name Gisell PRN Reason Stop Dose Admin Diazepam 5 mg 07/01/25 07:40 07/01/25 08:09 Diazepam 10 Mg/2 Ml Cartridge IVPUSH 07/01/25 07:41 5 mg STAT STA Administration Sodium Chloride 1,000 mls @ 999 mls/hr 07/01/25 07:40 07/01/25 08:06 Ns IV 07/01/25 08:40 999 mls/hr .Q1H1M ONE Administration Medical Decision Making Medical Decision Making [facility] Narrative: 49-year-old male here today multiple medical problems. Patient had a syncopal episode at home last night bit his tongue no incontinence. Patient states he is now got body aches and tired with vertigo. Brain CT ordered to evaluate for mass or ICH. Labs pending. Patient is alert and awake and oriented. I will hydrate the patient in order labs on this patient and re-evaluate him. Patient declines any alcohol use. Patient has had a history of having a seizure in the past. Troponins and are not clinically indicated at this time. Patient has a normal EKG is normal sinus at 96 and declines any respiratory distress or any chest pain. After further conversation. Patient states he has been depressed and drinking a lot. Probable alcohol seizure. Head CT is unremarkable labs are unremarkable BUN creatinine slightly elevated but private patient has a history of chronic kidney disease. Patient is started on phenobarb 10 milligrams/kilogram. Patient also given 1 L of normal saline along with 5 mg IV Valium. Patient's care was discussed with my supervising physician and transferred to the hospitalist service for further evaluation and treatment. Patient's vital signs are stable at this time. Differential Diagnosis Differential Diagnoses: The differential diagnosis associated with the presentation includes Differential diagnosis alcohol withdrawals seizure, vertigo, intracranial mass, intracranial bleed, electrolyte imbalance. Admission/Observation Consideration of admission/observation: Escalation of care including admission/observation considered Lab Data [facility] Lab Attestation statement: I reviewed the patient's lab results. 07/01/25 08:05 07/01/25 08:05 Labs: Lab Results 07/01/25 Range/Units 08:05 WBC 9.2 (4.8-10.8) X10*3/uL RBC 4.02 L (4.60-5.80) X10*6/uL Hgb 11.6 L (14.0-18.0) g/dl Hct 34.1 L (42.0-52.0) % MCV 84.8 (80.0-98.0) fL MCH 28.9 (27.0-33.0) pg MCHC 34.0 (31.0-36.0) g/dl RDW 18.9 H (11.0-16.0) % Plt Count 309 D (160-400) X10*3/uL MPV 9.2 L (9.4-12.4) fL Immature Gran % (Auto) 0.4 (0.0-0.4) % Neut % (Auto) 76.9 H (45-73) % Lymph % (Auto) 15.9 L (20-40) % Traill % (Auto) 5.5 (2-11) % Eos % (Auto) 0.9 (0-4) % Baso % (Auto) 0.4 (0-2) % Lymph # (Auto) 1.5 (1.2-4.9) X10*3/uL Traill # (Auto) 0.5 (0.1-1.2) X10*3/uL Eos # (Auto) 0.1 (0.0-0.4) X10*3/uL Baso # (Auto) 0.0 (0.0-0.2) X10*3/uL Abs Immat Gran (auto) 0.04 H (0.00-0.03) X10*3/uL Absolute Neuts (auto) 7.0 (2.0-8.3) x10*3/uL Absolute Nucleated RBC 0.000 (0.0-0.012) X10*3/uL Nucleated RBC % (auto) 0.0 (0.0-0.2) /100WBC Sodium 144 (135-145) mmol/L Potassium 4.2 (3.3-5.1) mmol/L Chloride 100 (96-108) mmol/L Carbon Dioxide 28 (22-29) mmol/L Anion Gap 20 (12-20) BUN 26 H (9-16) mg/dL Creatinine 1.56 H (0.5-1.4) mg/dL Estim Creat Clear Calc 47.2 Estimated GFR 47 Fasting Glucose 177 H (60-99) mg/dL Calcium 8.3 L D (8.4-10.2) mg/dL Magnesium 1.7 (1.6-2.6) mg/dL Total Bilirubin 0.4 (0.0-1.0) mg/dL Direct Bilirubin 0.2 (0.0-0.5) mg/dL AST 84 H (5-37) U/L ALT 71 H (0-40) U/L Alkaline Phosphatase 255 H (39-117) U/L Total Protein 6.9 (6.5-8.0) g/dL Albumin 3.8 (3.5-5.0) g/dL Lipase 32 (8-78) U/L Independent Interpretation Interpretation: EKG normal sinus rhythm 96 Independent Historian Clinical information obtained from an independent historian. History obtained from or confirmed by: EMS External Record Review External record reviewed: Outpatient record Discharge Plan Discharge Clinical Impression: Alcohol withdrawal seizure, Vertigo Patient Disposition: Admitted As Inpatient
--- NOTE | 2025-07-01 07:40 | ECG_ITS ---
Test Reason : syncope Blood Pressure : */* mmHG Vent. Rate : 96 BPM Atrial Rate : 96 BPM P-R Int : 132 ms QRS Dur : 80 ms QT Int : 360 ms P-R-T Axes : 50 41 37 degrees QTcB Int : 454 ms Normal sinus rhythm Normal ECG When compared with ECG of 20-Jun-2025 14:40, Nonspecific T wave abnormality, improved in Inferior leads Nonspecific T wave abnormality no longer evident in Lateral leads Referred By: Alicia Degroot Electronically Signed By: Sadiq Rivera
--- OUTSIDE RECORDS SUMMARY | 2025-07-01 07:59 | XMS_ITS | Encounter Summary ---
Author Organization [facility] Address [address] [place] [address] Care Team Providers Care Footwear Factory Worker Name Role Phone Mckenna Jones MD Primary Care Provider Unavail able Zari Henry MD Primary Care Provider Delmis Tran MD Unavailable [phone] Xuan Brantley MD Unavailable [phone] Reason for Visit * Reason Onset Date Comments TEST RESULTS 12/15/2020 Encounter Details Date Type Department Care Team Description 12/15/2020 Telephone Adult Medicine [address] [id number] Mckenna Jones MD TEST RESULTS Social History [...] documented as of this encounter Care Teams Footwear Factory Worker Relationship Specialty Start Date End Date Mckenna Jones MD PCP - General Internal Medicine 05/17/19 08/16/21 Zari Henry MD [address] [place] [address] PCP - General Internal Medicine 08/17/21 Delmis Tran MD [address] [place] [address] Specialist Cardiology 04/10/23 05/04/23 Xuan Brantley MD [address] [place] [address] Specialist Cardiology 05/05/23 documented as of this encounter
--- OUTSIDE RECORDS SUMMARY | 2025-07-01 07:59 | XMS_ITS | Encounter Summary ---
Author Organization [facility] Address [address] [place] [address] Care Team Providers Care Dry Box Operator Name Role Phone Elliot Garcia MD Primary Care Provider Mckenna Jones MD Primary Care Provider Unavail able Zari Henry MD Primary Care Provider Delmis Tran MD Unavailable [phone] Xuan Brantley MD Unavailable [phone] Encounter Details Date Type Department Care Team Description 06/20/2017 Transfer Records Medical Records [address] [place] [id number] Abstract, Provider Social History Tobacco Use Types Packs/Day Years Used Date Smoking Tobacco: Every Day Cigarettes 0.5 Smokeless Tobacco: Never Alcohol Use Standard Drinks/Week Comments Yes 0 (1 standard drink = 0.6 oz pur e alcohol) occasionally Sex Assigned at Date Recorded Not on file Job Start Date Occupation Industry Not on file Not on file Not on file documented as of this encounter Plan of Treatment Not on file documented as of this encounter Visit Diagnoses Not on filedocumented in this encounter Additional Health Concerns Infection Onset Date Last Indicated Resolved Time COVID-19 12/20/2023 12/21/2023 documented as of this encounter Care Teams Dry Box Operator Relationship Specialty Start Date End Date Elliot Garcia MD [address] [place] [address] [phone] PCP - General Internal Medicine 01/19/17 05/16/19 Mckenna Jones MD [address] [place] [address] PCP - General Internal Medicine 05/17/19 08/16/21 Zari Henry MD [address] [place] [address] PCP - General Internal Medicine 08/17/21 Delmis Tran MD [address] [place] [address] Specialist Cardiology 04/10/23 05/04/23 Xuan Brantley MD [address] [place] [address] Specialist Cardiology 05/05/23 documented as of this encounter
--- OUTSIDE RECORDS SUMMARY | 2025-07-01 07:59 | XMS_ITS | Encounter Summary ---
Author Organization [facility] Address [address] [place] [address] Care Team Providers Care Organic Chemist Name Role Phone Elliot Garcia MD Primary Care Provider [phone] cMkenna Jones MD Primary Care Provider Unavail able Zari Henry MD Primary Care Provider Delmis Tran MD Unavailable [phone] Xuan Brantley MD Unavailable [phone] Encounter Details Date Type Department Care Team Description 12/21/2017 Transfer Records Medical Records [address] [place] [id number] Abstract, Provider Social History Tobacco Use Types [...] documented as of this encounter Care Teams Organic Chemist Relationship Specialty Start Date End Date Elliot Garcia MD [address] [place] [address] [phone] PCP - General Internal Medicine 01/19/17 05/16/19 Mckenna Jones MD [address] [place] [address] PCP - General Internal Medicine 05/17/19 08/16/21 Zari Henry MD [address] [place] [address] PCP - General Internal Medicine 08/17/21 Delmis Tran MD [address] [place] [address] Specialist Cardiology 04/10/23 05/04/23 Xuan Brantley MD [address] [place] [address] Specialist Cardiology 05/05/23 documented as of this encounter
--- OUTSIDE RECORDS SUMMARY | 2025-07-01 07:59 | XMS_ITS | Encounter Summary ---
Author Organization [employer] [facility] Address [address] [place] [address] Care Team Providers Care Interventional Sale Consultant Name Role Phone Elliot Garcia MD Primary Care Provider Mckenna Jones MD Primary Care Provider Unavail able Zari Henry MD Primary Care Provider [phone] Delmis Tran MD Unavailable [phone] Xuan Brantley MD Unavailable [phone] Encounter Details Date Type Department Care Team Description 02/02/2017 Release of Information Medical Records [address] [place] [id number] Abstract, Provider Social History Tobacco Use Types Packs/Day Years Used Date Smoking Tobacco: Every Day Cigarettes 0.5 Alcohol Use Standard Drinks/Week Comments Yes 0 [...] documented as of this encounter Care Teams Interventional Sale Consultant Relationship Specialty Start Date End Date Elliot Garcia MD [address] [place] [address] PCP - General Internal Medicine 01/19/17 05/16/19 Mckenna Jones MD [address] [place] [address] PCP - General Internal Medicine 05/17/19 08/16/21 Zari Henry MD [address] [place] [address] PCP - General Internal Medicine 08/17/21 Delmis Tran MD [address] [place] [address] Specialist Cardiology 04/10/23 05/04/23 Xuan Brantley MD [address] [place] [address] Specialist Cardiology 05/05/23 documented as of this encounter
--- OUTSIDE RECORDS SUMMARY | 2025-07-01 07:59 | XMS_ITS | Encounter Summary ---
Author Organization [facility] Address [address] [place] [address] Care Team Providers Care Ring Maker Name Role Phone Zari Henry MD Primary Care Provider [phone] Reason for Visit * Reason Onset Date Comments Hospital Follow-up 06/17/2025 Encounter Details Date Type Department Care Team (Late st Contact Info) Description 06/17/2025 Telephone Adult Medicine [facility] [address] [place], [place] [phone] Zari Henry MD [address] [place], [place] Social History Tobacco Use Types Packs/Day Years Used Date Smoking Tobacco: Light Smoker Cigarettes 0.5 34.7 Started: 10/30/1990 Smokeless Tobacco: Never Alcohol Use Standard Drinks/Week Comments Yes 0 (1 standard drink = 0.6 oz pur e alcohol) Sex and Gender Information Value Date Recorded Sex Assigned at Not on file Legal Sex Male 4:34 AM EST Gender Identity Not on file Sexual Orientation Not on file documented as of this encounter Progress Notes * Ina Rodriguez - 06/17/2025 1:19 PM EDT error documented in this encounter Plan of Treatment Upcoming Encounters Date Type Department Care Team (Late st Contact Info) Description 07/01/2025 1:30 PM EDT Consult Orthopedic Surgery - [place] [address] [facility] [address] [place] [phone] Rivas Norman DPM [address] [place] [address] 08/25/2025 2:30 PM EDT Office Visit Adult Medicine [facility] [address] [place], [place] [phone] Nadege Begum PA [address] [place], [place] 09/08/2025 2:15 PM EST Office Visit Pulmonolgy - [place] [address] [facility] [address] [place] [phone] Nisa Machado MD [address] [place] [address] documented as of this encounter Visit Diagnoses Not on filedocumented in this encounter Care Teams Ring Maker Relationship Specialty Start Date End Date Zari Henry MD [address] [place] [address] PCP - General Internal Medicine 08/17/21 documented as of this encounter
--- OUTSIDE RECORDS SUMMARY | 2025-07-01 07:59 | XMS_ITS | Encounter Summary ---
Author Organization [facility] Address [address] [place] [address] Care Team Providers Care Mr Teacher Name Role Phone Zari Henry MD Primary Care Provider [phone] Reason for Visit * Reason Onset Date Comments rmw 06/25/2025 Encounter Details Date Type Department Care Team (Late st Contact Info) Description 06/25/2025 Telephone [facility] [address] [facility] [address] [place] [address] Nisa Machado MD [address] [place] [address] Social History Tobacco Use Types Packs/Day Years [...] as of this encounter Progress Notes * Julio César Encarnacion - 06/25/2025 2:51 PM EDT Patient came into lobby to dropp off Application for disabled parking placard/plate and release form. Forms documented in this encounter Plan of Treatment Upcoming Encounters Date Type Department Care Team (Late st Contact Info) Description 07/01/2025 1:30 PM EDT Consult Orthopedic Surgery - [place] [address] [facility] [address] [place] [phone] Rivas Norman DPM [address] [place] [address] 08/25/2025 2:30 PM EDT Office Visit Adult Medicine [facility] [address] [place], [place] [phone] Nadege Begum PA [address] [place], [place] 09/08/2025 2:15 PM EST Office Visit Pulmonolgy [facility] [address] [facility] [address] [place] [phone] Nisa Machado MD [address] [place] [address] documented as of this encounter Visit Diagnoses Not on filedocumented in this encounter Care Teams Mr Teacher Relationship Specialty Start Date End Date Zari Henry MD [address] [place] [address] PCP - General Internal Medicine 08/17/21 documented as of this encounter
--- OUTSIDE RECORDS SUMMARY | 2025-07-01 07:59 | XMS_ITS | Encounter Summary ---
Author Organization [facility] Address [address] [place] [address] Care Team Providers Care Senior Counsel Name Role Phone Elliot Garcia MD Primary Care Provider Mckenna Jones MD Primary Care Provider Unavail able Zari Henry MD Primary Care Provider [phone] Delmis Tran MD Unavailable [phone] Xuan Brantley MD Unavailable [phone] Reason for Visit * Reason Onset Date Comments Appointment-[facility] En[facility] Details Date Type Department Care Team Description 10/02/2017 Telephone Adult Medicine [facility] [address] [place] [address] [phone] [facility] [address] [place], [place] [phone] Appointment-Internal Referral (General Surgery) Social History Tobacco Use Types Packs/Day Years Used Date Smoking Tobacco: Every Day Cigarettes 0.5 Smokeless Tobacco: Never Alcohol Use Standard Drinks/Week Comments Yes 0 (1 standard drink = 0.6 oz pur e alcohol) occasionally Sex Assigned at Date Recorded Not on file Job Start Date Occupation Industry Not on file Not on file Not on file documented as of this encounter Miscellaneous Notes * Telephone Encounter - Amanda Wyatt - 10/02/2017 3:15 PM EST Spoke with patient this pm, stated he no longer needed the appointment, because the issue resolved itself. Asked to cancel appointment - This is an FYI documented in this encounter Plan of Treatment Not on file documented as of this encounter Visit Diagnoses Not on filedocumented in this encounter Additional Health Concerns Infection Onset Date Last Indicated Resolved Time COVID-19 12/20/2023 12/21/2023 documented as of this encounter Care Teams Senior Counsel Relationship Specialty Start Date End Date Elliot Garcia MD [address] [place] [address] PCP - General Internal Medicine 01/19/17 05/16/19 Mckenna Jones MD [address] [place] [address] PCP - General Internal Medicine 05/17/19 08/16/21 Zari Henry MD [address] [place] [address] PCP - General Internal Medicine 08/17/21 Delmis Tran MD [address] [place] [address] Specialist Cardiology 04/10/23 05/04/23 Xuan Brantley MD [address] [place] [address] Specialist Cardiology 05/05/23 documented as of this encounter
--- OUTSIDE RECORDS SUMMARY | 2025-07-01 07:59 | XMS_ITS | Encounter Summary ---
Author Organization [facility] Address [address] [place] [address] Care Team Providers Care Elevator Adjuster Name Role Phone Elliot Garcia MD Primary Care Provider Mckenna Jones MD Primary Care Provider Unavail able Zari Henry MD Primary Care Provider [phone] Delmis Tran MD Unavailable [phone] Xuan Brantley MD Unavailable [phone] Encounter Details Date Type Department Care Team Description 06/12/2017 Librarian Special Library Report Medical Records [address] [place] [address] Chris Easton, PA-C Social History Tobacco Use Types Packs/Day Years [...] documented as of this encounter Care Teams Elevator Adjuster Relationship Specialty Start Date End Date Elliot Garcia MD [address] [place] [address] PCP - General Internal Medicine 01/19/17 05/16/19 Mckenna Jones MD [address] [place] [address] PCP - General Internal Medicine 05/17/19 08/16/21 Zari Henry MD [address] [place] [address] PCP - General Internal Medicine 08/17/21 Delmis Tran MD [address] [place] [address] Specialist Cardiology 04/10/23 05/04/23 Xuan Brantley MD [address] [place] [address] Specialist Cardiology 05/05/23 documented as of this encounter
--- OUTSIDE RECORDS SUMMARY | 2025-07-01 07:59 | XMS_ITS | Encounter Summary ---
Author Organization [facility] Address [address] [place] [address] Care Team Providers Care Directional Driller Name Role Phone Mckenna Jones MD Primary Care Provider Unavail able Zari Henry MD Primary Care Provider [phone] Delmis Tran MD Unavailable [phone] Xuan Brantley MD Unavailable [phone] Encounter Details Date Type Department Care Team Description 02/17/2021 Form Setter Supervisor Report Medical Records [address] [place] [address] Glenys Cobian MD Social History Tobacco Use Types Packs/Day Years [...] have Coronavirus / COVID-19? No / Unsure 02/10/2021 12:51 PM EDT documented as of this encounter Plan of Treatment Not on file documented as of this encounter Visit Diagnoses Not on filedocumented in this encounter Additional Health Concerns Infection Onset Date Last Indicated Resolved Time COVID-19 12/20/202312/2112/21/2023 documented as of this encounter Care Teams Directional Driller Relationship Specialty Start Date End Date Mckenna Jones MD PCP - General Internal Medicine 05/17/19 08/16/21 Zari Henry MD [address] [place] [address] 43754 PCP - General Internal Medicine 08/17/21 Delmis Tran MD [address] [place] [address] 69993 Specialist Cardiology 04/10/23 05/04/23 Xuan Brantley MD [address] [place] [address] 96138 Specialist Cardiology 05/05/23 documented as of this encounter
--- OUTSIDE RECORDS SUMMARY | 2025-07-01 08:00 | XMS_ITS | Encounter Summary ---
Author Organization [facility] Address [address] [place] [address] Care Team Providers Care Weight Inspector Name Role Phone Zari Herny MD Primary Care Provider [phone] Delmis Tran MD Unavailable [phone] Xuan Brantley MD Unavailable [phone] Encounter Details Date Type Department Care Team Description 12/26/2022 Hospital Medical Records [address] [place] [address] Missael Ocasio Social History Tobacco Use Types Packs/Day Years Used Date Smoking Tobacco: Light Smoker Cigarettes 0.5 Started: 1990 Smokeless Tobacco: Never Comments:6 cigaretts in a [...] documented as of this encounter Care Teams Weight Inspector Relationship Specialty Start Date End Date Zari Henry MD [address] [place] [address] PCP - General Internal Medicine 08/17/21 Delmis Tran MD [address] [place] [address] Specialist Cardiology 04/10/23 05/04/23 Xuan Brantley MD [address] [place] [address] 49182 Specialist Cardiology 05/05/23 documented as of this encounter
--- OUTSIDE RECORDS SUMMARY | 2025-07-01 08:00 | XMS_ITS | Encounter Summary ---
Author Organization [facility] Address [address] [place] [address] Care Team Providers Care Capsule Maker Name Role Phone Mckenna Jones MD Primary Care Provider Unavail able Zari Henry MD Primary Care Provider [phone] Delmis Tran MD Unavailable [phone] Xuan Brantley MD Unavailable [phone] Encounter Details Date Type Department Care Team Description 06/18[facility] [address] [place] [address] [facility] Social History Tobacco Use Types Packs/Day Years [...] have Coronavirus / COVID-19? No / Unsure 06/14/2021 2:10 PM EDT documented as of this encounter Plan of Treatment Not on file documented as of this encounter Visit Diagnoses Not on filedocumented in this encounter Additional Health Concerns Infection Onset Date Last Indicated Resolved Time COVID-19 12/20/2023 12/21/2023 documented as of this encounter Care Teams Capsule Maker Relationship Specialty Start Date End Date Mckenna Jones MD PCP - General Internal Medicine 05/17/19 08/16/21 Zari Henry MD [address] [place] [address] PCP - General Internal Medicine 08/17/21 Delmis Tran MD [address] [place] [address] Specialist Cardiology 04/10/23 05/04/23 Xuan Brantley MD [address] [place] [address] Specialist Cardiology 05/05/23 documented as of this encounter
--- OUTSIDE RECORDS SUMMARY | 2025-07-01 08:00 | XMS_ITS | Encounter Summary ---
Author Organization [facility] Address [address] [place] [address] Care Team Providers Care Motor Vehicle Clerk Name Role Phone Zari Henry MD Primary Care Provider [phone] Xuan Brantley MD Unavailable [phone] Reason for Visit * Reason Comments E-prescribe Rx Request Encounter Details Date Type Department Care Team Description 07/05/2024 Refill Pulmonology - [place] 175 [facility] [address] [place] [address] Nisa Machado MD [address] [place] [address] E-prescribe Rx Request Social History Tobacco Use Types Packs/Day Years [...] encounter Miscellaneous Notes * Telephone Encounter - Catherine Alonzo - 07/05/2024 3:11 PM EDT NOV- 07/11/24 GABRIELLE - 03/08/24 documented in this encounter Plan of Treatment Not on file documented as of this encounter Visit Diagnoses Not on filedocumented in this encounter Additional Health Concerns Infection Onset Date Last Indicated Resolved Time COVID-19 12/20/2023 12/21/2023 documented as of this encounter Care Teams Motor Vehicle Clerk Relationship Specialty Start Date End Date Zari Henry MD [address] [place] [address] PCP - General Internal Medicine 08/17/21 Xuan Brantley MD [address] [place] [address] Specialist Cardiology 05/05/23 documented as of this encounter
--- OUTSIDE RECORDS SUMMARY | 2025-07-01 08:00 | XMS_ITS | Encounter Summary ---
[facility] Address [address] [place] [address] Care Team Providers Care Animal Control Supervisor Name Role Phone Zari Henry MD Primary Care Provider Delmis Tran MD Unavailable [phone] Xuan Brantley MD Unavailable [phone] Reason for Visit * Reason Onset Date Comments Note, Other 12/27/2022 [facility] Encounter Details Date Type Department Care Team Description 12/27/2022 Telephone Pulmonology - [place] 175 [facility] [address] [place] [address] Nisa Machado MD [address] [place] [address] Note, [facility] Social History Tobacco Use Types Packs/Day Years [...] encounter Miscellaneous Notes * Telephone Encounter - Kenna Bowman - 12/27/2022 2:50 PM EST Received a fax from [facility]: The above mentioned patient was in the hospital at the time of his scheduled appointment. We rescheduled him to get set up on ThrusJanuary 05 @2:30pm We are missing the home sleep study performed prior the the titration (completed on 07/28/22.) Please forwarsthat as soon as possible so we can keep th escheduled set up appointment. Fax directly: [phone] documented in this encounter Plan of Treatment Not on file documented as of this encounter Visit Diagnoses Not on filedocumented in this encounter Additional Health Concerns Infection Onset Date Last Indicated Resolved Time COVID-19 12/20/2023 12/21/2023 documented as of this encounter Care Teams Animal Control Supervisor Relationship Specialty Start Date End Date Zari Henry MD [address] [place] [address] PCP - General Internal Medicine 08/17/21 Delmis Tran MD [address] [place] [address] Specialist Cardiology 04/10/23 05/04/23 Xuan Brantley MD [address] [place] [address] Specialist Cardiology 05/05/23 documented as of this encounter
--- OUTSIDE RECORDS SUMMARY | 2025-07-01 08:00 | XMS_ITS | Encounter Summary ---
Author Organization [facility] Address [address] [place] [address] Care Team Providers Care Dumper Central Concrete Mixing Plant Name Role Phone Zari Henry MD Primary Care Provider [phone] Delmis Tran MD Unavailable [phone] Xuan Brantley MD Unavailable [phone] Encounter Details Date Type Department Care Team Description 12/24/2022 [facility] Report Medical Records [address] [place] [address] Abstract, Provider Social History Tobacco Use Types [...] documented as of this encounter Care Teams Dumper Central Concrete Mixing Plant Relationship Specialty Start Date End Date Zari Henry MD [address] [place] [address] PCP - General Internal Medicine 08/17/21 Delmis Tran MD [address] [place] [address] Specialist Cardiology 04/10/23 05/04/23 Xuan Brantley MD [address] [place] [address]370 Specialist Cardiology 05/05/23 documented as of this encounter
--- OUTSIDE RECORDS SUMMARY | 2025-07-01 08:00 | XMS_ITS | Encounter Summary ---
Author Organization [facility] Address [address] [place] [address] Care Team Providers Care Chamber Worker Name Role Phone Zari Henry MD Primary Care Provider [phone] Xuan Brantley MD Unavailable [phone] Encounter Details Date Type Department Care Team Description 08/06/2024 Transfer Records Medical Records [address] [place] [address] [facility] Social History Tobacco Use Types Packs/Day [...] documented as of this encounter Care Teams Chamber Worker Relationship Specialty Start Date End Date Zari Henry MD [address] [place] [address] PCP - General Internal Medicine 08/17/21 Xuan Brantley MD [address] [place] [address] Specialist Cardiology 05/05/23 documented as of this encounter
--- OUTSIDE RECORDS SUMMARY | 2025-07-01 08:00 | XMS_ITS | Encounter Summary ---
[facility] Address [address] [place] [address] Care Team Providers Care Central Lab Technician Name Role Phone Zari Henry MD Primary Care Provider [phone] Delmis Tran MD Unavailable [phone] Xuan Brantley MD Unavailable [phone] Reason for Visit * Reason Onset Date Comments DME Request 01/03/2023 cpap Encounter Details Date Type Department Care Team Description 01/03/2023 Telephone Pulmonology - [place] 175 [facility] [address] [place] [address] Nisa Machado MD [address] [place] [address] DME Request (cpap) Social History Tobacco Use Types Packs/Day Years [...] Exposure Response Date Recorded In the last 10 days, have yo u been in contact with someone who was confirmed or suspected to have Coronavirus/COVID-19? No / Unsure 01/06/2023 12:57 PM EST documented as of this encounter Miscellaneous Notes * Telephone Encounter - Alia Platt Ariel - 01/03/2023 2:14 PM EST Divya called received the had already 6 attempts to give cpap to patient he keeps canceling the appointments. Divya will not be attempting anymore. documented in this encounter Plan of Treatment Not on file documented as of this encounter Visit Diagnoses Not on filedocumented in this encounter Additional Health Concerns Infection Onset Date Last Indicated Resolved Time COVID-19 12/20/2023 12/21/2023 documented as of this encounter Care Teams Central Lab Technician Relationship Specialty Start Date End Date Zari Henry MD [address] [place] [address] PCP - General Internal Medicine 08/17/21 Delmis Tran MD [address] [place] [address] Specialist Cardiology 04/10/23 05/04/23 Xuan Brantley MD [address] [place] [address]45 Specialist Cardiology 05/05/23 documented as of this encounter
--- OUTSIDE RECORDS SUMMARY | 2025-07-01 08:00 | XMS_ITS | Encounter Summary ---
Author [facility] Address [address] [place] [address] Care Team Providers Care Cardroom Drawing Runner Name Role Phone Zari Henry MD Primary Care Provider [phone] Xuan Brantley MD Unavailable [phone] Encounter Details Date Type Department Care Team Description 06/21/2024 Hospital Medical Records [address] [place] [address] [facility] Social History Tobacco Use Types Packs/Day [...] documented as of this encounter Care Teams Cardroom Drawing Runner Relationship Specialty Start Date End Date Zari Henry MD [address] [place] [address] PCP - General Internal Medicine 08/17/21 Xuan Brantley MD [address] [place] [address] Specialist Cardiology 05/05/23 documented as of this encounter
--- OUTSIDE RECORDS SUMMARY | 2025-07-01 08:00 | XMS_ITS | Encounter Summary ---
Author Organization [facility] Address [address] [place] [address] Care Team Providers Care Appointment Specialist Name Role Phone Zari Henry MD Primary Care Provider [phone] Xuan Brantley MD Unavailable [phone] Reason for Visit * Reason Onset Date Comments hospital follow up 07/15/2024 Encounter Details Date Type Department Care Team Description 07/15/2024 Telephone Pulmonology - [place] 175 [facility] [address] [place] [address] Nisa Machado MD [address] [place] [address] hospital follow up Social History Tobacco Use Types Packs/Day Years [...] encounter Miscellaneous Notes * Telephone Encounter - Elier Camilo CMA - 07/18/2024 10:22 AM EDT FYI pt back in hospital. * Telephone Encounter - Catherine Alonzo - 07/18/2024 9:41 AM EDT Called patient, patient back at the hospital but we scheduled for 07/24/24 * Telephone Encounter - Cassandra Alston - 07/17/2024 11:15 AM EDT TCM visits only able to be done 7 days since hospital discharge. Patient discharged 06/28/24 and no showed routine follow up with Dr. Machado on 07/11. Please call and book routine follow up for COPD. * Telephone Encounter - Elier Camilo CMA - 07/15/2024 1:59 PM EDT I requested notes from [facility]. Once receive it. Ill call pt with a soon appointment. * Telephone Encounter - Catherine Alonzo - 07/15/2024 12:23 PM EDT Patient was admitted a few times at [facility] , but [facility] All he remebers is that he was pnemonia, Bronchitis , Congested heart failure. Patient needs to follow up. Please advice documented in this encounter Plan of Treatment Not on file documented as of this encounter Visit Diagnoses Not on filedocumented in this encounter Additional Health Concerns Infection Onset Date Last Indicated Resolved Time COVID-19 12/20/2023 12/21/2023 documented as of this encounter Care Teams Appointment Specialist Relationship Specialty Start Date End Date Zrai Henry MD [address] [place] [address] PCP - General Internal Medicine 08/17/21 Xuan Brantley MD [address] [place] [address] 11869 Specialist Cardiology 05/05/23 documented as of this encounter
--- OUTSIDE RECORDS SUMMARY | 2025-07-01 08:00 | XMS_ITS | Encounter Summary ---
[facility] Address [address] [place] [address] Care Team Providers Care Pulp Drier Firer Name Role Phone Zari Henry MD Primary Care Provider [phone] Delmis Tran MD Unavailable [phone] Xuan Brantley MD Unavailable [phone] Reason for Visit * Reason Onset Date Comments Faxed Refill 03/30/2023 Encounter Details Date Type Department Care Team Description 03/30/2023 Refill Adult Medicine [address] [id number] Zari Henry MD [address] [place] [address] [phone] Faxed Refill Social History Tobacco Use Types Packs/Day Years [...] suspected to have Coronavirus/COVID-19? No / Unsure 03/20/2023 12:50 PM EDT documented as of this encounter Miscellaneous Notes * Telephone Encounter - Kirt Abad M.A. - 03/30/2023 11:35 AM EDT Lab Results Component Value Date NA 140 02/23/2023 K 4.5 02/23/2023 CO2 25 02/23/2023 CL 108 02/23/2023 BUN 18 02/23/2023 CREAT 1.45 02/23/2023 GLU 222 02/23/2023 CA 9.0 02/23/2023 GFR 59 02/23/2023 GABRIELLE w/PCP 01/06/2023 Next OV w/Nadege Begum 05/08/[address] Henry's absence, thank you. * Telephone Encounter - Mariola Carlson - 03/30/2023 8:05 AM EDT Patient would like script to be: E-PRESCRIBED/FAXED TO PHARMACY WHEN WAS THE PATIENT'S LAST APPOINTMENT IN ADULT MEDICINE? 01/06/2023 WHEN WAS THE LAST TIME THE PATIENT SAW THEIR PCP? Same as above Does patient have an upcoming appointment? Yes 05/08/2023 (THE MEDICATION REQUESTED IS ON THE MED LIST ABOVE) All of the medications requested were on the CURRENT MEDS list Did you check the Pharmacy information above?: YES Patient wants: 30 -day supply Is this a mail order prescription request ? NO If the refill is from a FAXED refill request what is the RX # listed on the fax? N/A Patients current insurance carrier is: Payor: [facility] FFS / Plan: [facility] / Product Type: MEDICAID RISK documented in this encounter Plan of Treatment Not on file documented as of this encounter Visit Diagnoses Not on filedocumented in this encounter Additional Health Concerns Infection Onset Date Last Indicated Resolved Time COVID-19 12/20/2023 12/21/2023 documented as of this encounter Care Teams Pulp Drier Firer Relationship Specialty Start Date End Date Zari Henry MD [address] [place] [address]889 PCP - General Internal Medicine 08/17/21 Delmis Tran MD [address] [place] [address] 88994 Specialist Cardiology 04/10/23 05/04/23 Xuan Brantley MD [address] [place] [address] 32696 Specialist Cardiology 05/05/23 documented as of this encounter
--- OUTSIDE RECORDS SUMMARY | 2025-07-01 08:00 | XMS_ITS | Encounter Summary ---
Author Organization [facility] Address [address] [place] [address] Care Team Providers Care Laboratory Geneticist Name Role Phone Zari Henry MD Primary Care Provider [phone] Delmis Tran MD Unavailable [phone] Xuan Brantley MD Unavailable [phone] Reason for Visit * Reason Comments E-prescribe Rx Request Encounter Details Date Type Department Care Team Description 03/24/2023 Refill Vascular Surgery - [place] 300 [facility] [address] [place] [address] Enedina Westbrook PA-C [address] [address] E-prescribe Rx Request Social History Tobacco Use [...] encounter Miscellaneous Notes * Telephone Encounter - Licha Cano PA-C - 03/24/2023 3:33 PM EDT Continue taking 81mg aspirin daily. * Telephone Encounter - Alina Soto - 03/24/2023 3:27 PM EDT Last ov 06/20 with plan to continue statin and asa F/u 05/19/23 documented in this encounter Plan of Treatment Not on file documented as of this encounter Visit Diagnoses Not on filedocumented in this encounter Additional Health Concerns Infection Onset Date Last Indicated Resolved Time COVID-19 12/20/2023 12/21/2023 documented as of this encounter Care Teams Laboratory Geneticist Relationship Specialty Start Date End Date Zari Henry MD [address] [place] [address] PCP - General Internal Medicine 08/17/21 Delmis Tran MD [address] [place] [address] Specialist Cardiology 04/10/23 05/04/23 Xuan Brantley MD [address] [place] [address] Specialist Cardiology 05/05/23 documented as of this encounter
--- OUTSIDE RECORDS SUMMARY | 2025-07-01 08:00 | XMS_ITS | Encounter Summary ---
[facility] Address [address] [place] [address] Care Team Providers Care Director Of Manufacturing Name Role Phone Zari Henry MD Primary Care Provider [phone] Xuan Brantley MD Unavailable [phone] Reason for Visit * Reason Onset Date Comments refill request 06/10/2024 Encounter Details Date Type Department Care Team Description 06/10/2024 Refill Endocrinology - [address] [address] Lea Alex PA-C [address] [place] [address] refill request Social History Tobacco Use Types Packs/Day Years [...] encounter Miscellaneous Notes * Telephone Encounter - Lisa Barr - 06/10/2024 9:33 AM EDT Did you check the Pharmacy information above?: YES Patient wants: 30 -day supply Is this a mail order prescription request ? NO If the refill is from a FAXED refill request what is the RX # listed on the fax? N/A Patients current insurance carrier is: Payor: [facility] FFS / Plan: [facility] / Product Type: MEDICAID RISK documented in this encounter Plan of Treatment Not on file documented as of this encounter Visit Diagnoses Not on filedocumented in this encounter Additional Health Concerns Infection Onset Date Last Indicated Resolved Time COVID-19 12/20/2023 12/21/2023 documented as of this encounter Care Teams Director Of Manufacturing Relationship Specialty Start Date End Date Zari Henry MD [address] [place] [address] PCP - General Internal Medicine 08/17/21 Xuan Brantley MD [address] [place] [address]79 Specialist Cardiology 05/05/23 documented as of this encounter
--- OUTSIDE RECORDS SUMMARY | 2025-07-01 08:00 | XMS_ITS | Encounter Summary ---
Author Organization [facility] Address [address] [place] [address] Care Team Providers Care Limo Driver Name Role Phone Zari Henry MD Primary Care Provider [phone] Delmis Tran MD Unavailable [phone] Xuan Brantley MD Unavailable [phone] Encounter Details Date Type Department Care Team Description 12/25/2022 Hospital Medical Records [address] [place] [address] Missael Ocasio Social History Tobacco Use Types [...] documented as of this encounter Care Teams Limo Driver Relationship Specialty Start Date End Date Zari Henry MD [address] [place] [address] PCP - General Internal Medicine 08/17/21 Delmis Tran MD [address] [place] [address] Specialist Cardiology 04/10/23 05/04/23 Xuan Brantley MD [address] [place] [address] Specialist Cardiology 05/05/23 documented as of this encounter
--- OUTSIDE RECORDS SUMMARY | 2025-07-01 08:00 | XMS_ITS | Encounter Summary ---
Author Organization [facility] Address [address] [place] [address] Care Team Providers Care Agricultural Economist Name Role Phone Elliot Garcia MD Primary Care Provider Mckenna Jones MD Primary Care Provider Unavail able Zari Henry MD Primary Care Provider Delmis Tran MD Unavailable [phone] Xuan Brantley MD Unavailable [phone] Encounter Details Date Type Department Care Team Description 01/01/2019 Orders Only Adult Medicine [address] [phone] Pavel Mccracken, ZHOU Social History Tobacco Use Types Packs/Day Years [...] documented as of this encounter Care Teams Agricultural Economist Relationship Specialty Start Date End Date Elliot Garcia MD [address] [place] [address] PCP - General Internal Medicine 01/19/17 05/16/19 Mckenna Jones MD [address] [place] [address] PCP - General Internal Medicine 05/17/19 08/16/21 Zari Henry MD [address] [place] [address] PCP - General Internal Medicine 08/17/21 Delmis Tran MD [address] [place] [address] 23885 Specialist Cardiology 04/10/23 05/04/23 Xuan Brantley MD [address] [place] [address] Specialist Cardiology 05/05/23 documented as of this encounter
--- OUTSIDE RECORDS SUMMARY | 2025-07-01 08:00 | XMS_ITS | Encounter Summary ---
Author Organization [facility] Address [address] [place] [address] Care Team Providers Care Studio Set Up Worker Name Role Phone Elliot Garcia MD Primary Care Provider Mckenna Jones MD Primary Care Provider Unavail able Zari Henry MD Primary Care Provider [phone] Delmis Tran MD Unavailable [phone] Xuan Brantley MD Unavailable [phone] Encounter Details Date Type Department Care Team Description 08/09/2018 Orders Only Gastroenterology - [address] [address] Drew Sheridan MD Fungal esophagitis (Primary Dx) Social History Tobacco Use Types Packs/Day Years [...] as of this encounter Visit Diagnoses Diagnosis Fungal esophagitis- Primary Other esophagitis documented in this encounter Additional Health Concerns Infection Onset Date Last Indicated Resolved Time COVID-19 12/20/2023 12/21/2023 documented as of this encounter Care Teams Studio Set Up Worker Relationship Specialty Start Date End Date Elliot Garcia MD [address] [place] [address] 57957 PCP - General Internal Medicine 01/19/17 05/16/19 Mckenna Jones MD [address] [place] [address] 45638 PCP - General Internal Medicine 05/17/19 08/16/21 Zari Henry MD [address] [place] [address] 29445 PCP - General Internal Medicine 08/17/21 Delmis Tran MD [address] [place] [address]8734 Specialist Cardiology 04/10/23 05/04/23 Xuan Brantley MD [address] [place] [address] 61319 Specialist Cardiology 05/05/23 documented as of this encounter
--- OUTSIDE RECORDS SUMMARY | 2025-07-01 08:00 | XMS_ITS | Encounter Summary ---
Author Organization [facility] Address [address] [place] [address] Care Team Providers Care Insole Lip Turner Name Role Phone Zari Henry MD Primary Care Provider [phone] Xuan Brantley MD Unavailable [phone] Reason for Visit * Reason Onset Date Comments hospital follow up 06/06/2024 Encounter Details Date Type Department Care Team Description 06/06/2024 Telephone Nephrology - [address] [phone] Jong Hall MD [address] [place] [address] [phone] hospital follow up Social History Tobacco Use [...] encounter Miscellaneous Notes * Telephone Encounter - Didi Rabago - 06/06/2024 2:36 PM EDT Follow up appointment not available with DR Hall for Hopsital Follow up Please call patient to book-no open NON PUBLIC SLOTS. Appointment needed- [facility] wrote within a week on his dc summary, but leann. Patient was admitted to [facility] and discharged today. Was told to follow up with Dr Hall for his kidney function, kidneys are working too hard. Please assist with booking documented in this encounter Plan of Treatment Not on file documented as of this encounter Visit Diagnoses Not on filedocumented in this encounter Additional Health Concerns Infection Onset Date Last Indicated Resolved Time COVID-19 12/20/2023 12/21/2023 documented as of this encounter Care Teams Insole Lip Turner Relationship Specialty Start Date End Date Zari Henry MD [address] [place] [address] PCP - General Internal Medicine 08/17/21 Xuan Brantley MD [address] [place] [address] 86017 Specialist Cardiology 05/05/23 documented as of this encounter
--- OUTSIDE RECORDS SUMMARY | 2025-07-01 08:00 | XMS_ITS | Encounter Summary ---
[facility] Address [address] [place] [address] Care Team Providers Care Engine Oiler Name Role Phone Elliot Garcia MD Primary Care Provider Mckenna Jones MD Primary Care Provider Unavail able Zari Henry MD Primary Care Provider Delmis Tran MD Unavailable [phone] Xuan Brantley MD Unavailable [phone] Reason for Visit * Reason Onset Date Comments Provider Call Back 01/01/2018 Encounter Details Date Type Department Care Team Description 01/01/2018 Telephone Adult Medicine [address] [phone] Elliot Garcia MD [address] [place] [address] [phone] Provider Call Back Social History Tobacco Use Types Packs/Day Years [...] encounter Miscellaneous Notes * Telephone Encounter - Vivek Hicks L.P.N. - 01/11/2018 11:49 AM EDT After multiple attempts to obtain any notes associated with Patient's x-ray from [facility],unable to get additional information. * Telephone Encounter - Vivek Hicks L.P.N. - 01/09/2018 10:58 AM EDT Fax from [facility]. Stating no discharge summery from patient's visit. Sent fax back requesting any notes assoc with chest Xrays. * Telephone Encounter - Vivek Hicks L.P.N. - 01/05/2018 3:20 PM EST Several attempts have been made to [facility]. To obtain records. Sent Stat and today Urgent. Left message with patient will call back leann when received. * Telephone Encounter - Vale Montiel - 01/05/2018 2:45 PM EST PATIENT IS STILL AWAITING A CALL BACK ON MEDICAL RECORDS. * Telephone Encounter - Vivek Hicks L.P.N. - 01/04/2018 3:18 PM EST Requested additional notes on patient from visit. * Telephone Encounter - Elliot Garcia MD - 01/01/2018 4:55 PM EST Yes, I have received some records, but quite limited, only x ray report. * Telephone Encounter - Deb Gama M.A. - 01/01/2018 4:47 PM EST Chest x-ray transfer records received, Was there anything else you were waiting for? * Telephone Encounter - Janett Ontiveros - 01/01/2018 4:38 PM EST Caller requesting call back from provider: Is the caller the patient? YES If caller is not the patient, what is the callers name? N/A Callers relationship to patient? N/A If person calling is not the patient themselves, is there a verbal release in FYI or permanent comments for this person: NO Reason for call back: Patient checking to see if records were received from [place]. Please advise. Caller offered to speak with the nurse for assistance: YES Response: Patient offered to speak with nurse for assistance and patient agreed. Message forwarded to nurse. documented in this encounter Plan of Treatment Not on file documented as of this encounter Visit Diagnoses Not on filedocumented in this encounter Additional Health Concerns Infection Onset Date Last Indicated Resolved Time COVID-19 12/20/2023 12/21/2023 documented as of this encounter Care Teams Engine Oiler Relationship Specialty Start Date End Date Elliot Garcia MD [address] [place] [address] 34515 PCP - General Internal Medicine 01/19/17 05/16/19 Mckenna Jones MD [address] [place] [address] PCP - General Internal Medicine 05/17/19 08/16/21 Zari Henry MD [address] [place] [address] 75504 PCP - General Internal Medicine 08/17/21 Delmis Tran MD [address] [place] [address] 98680 Specialist Cardiology 04/10/23 05/04/23 Xuan Brantley MD [address] [place] [address] 67174 Specialist Cardiology 05/05/23 documented as of this encounter
--- OUTSIDE RECORDS SUMMARY | 2025-07-01 08:00 | XMS_ITS | Encounter Summary ---
[facility] Address [address] [place] [address] Care Team Providers Care Escalator Attendant Name Role Phone Zari Henry MD Primary Care Provider [phone] Xuan Brantley MD Unavailable [phone] Reason for Visit * Reason Onset Date Comments Prior Authorization 08/19/2024 Encounter Details Date Type Department Care Team Description 08/19/2024 Telephone Pulmonology - [place] [address] [facility] [address] [place] [address] Nisa Machado MD [address] [place] [address] Prior Authorization Social History Tobacco Use Types Packs/Day Years [...] encounter Miscellaneous Notes * Telephone Encounter - Erinn Lantigua M.A. - 08/19/2024 1:34 PM EDT Brand name ventolin is covered. Thank you Please reply back to [id number] Prior Auth Pool Erinn Eddy [facility] Prior Authorization Ext [id number] * Telephone Encounter - Julio César Encarnacion - 08/19/2024 1:03 PM EDT Prior Authorization for Medication-do not complete and send this encounter unless you have the fax from the pharmacy. Is this a Cover My Meds request: Yes -- [place] Code [id number] Name of Medication FLUCTICASONE PROPIONATE HFA Dose of Medication 110 MCG/ACT What is the RX # from the faxed refill? How does patient take this med? Aerosol What Pharmacy did the fax come from: [facility] Pharmacy fax #: [phone] [employer] Information from fax: What Prescription Plan does the patient have? BIN/PCN if applicable: Cardholder ID: Person Code: Relationship Code: Help desk phone: [phone] documented in this encounter Plan of Treatment Not on file documented as of this encounter Visit Diagnoses Not on filedocumented in this encounter Additional Health Concerns Infection Onset Date Last Indicated Resolved Time COVID-19 12/20/2023 12/21/2023 documented as of this encounter Care Teams Escalator Attendant Relationship Specialty Start Date End Date Zari Henry MD [address] [place] [address] 55639 PCP - General Internal Medicine 08/17/21 Xuan Brantley MD [address] [place] [address] 42259 Specialist Cardiology 05/05/23 documented as of this encounter
--- OUTSIDE RECORDS SUMMARY | 2025-07-01 08:00 | XMS_ITS | Encounter Summary ---
Author Organization [facility] Address [address] [place] [address] Care Team Providers Care Paper Core Machine Operator Name Role Phone Zari Henry MD Primary Care Provider [phone] Delmis Tran MD Unavailable [phone] Xuan Brantley MD Unavailable [phone] Reason for Visit * Reason Onset Date Comments radiology 02/27/2023 Encounter Details Date Type Department Care Team Description 02/27/2023 Telephone [facility] - [address] [phone] Jong Hall MD [address] [place] [address] [phone] radiology Social History Tobacco Use Types Packs/Day Years [...] suspected to have Coronavirus/COVID-19? No / Unsure 02/23/2023 3:29 PM EDT documented as of this encounter Miscellaneous Notes * Telephone Encounter - Tamera Bermeotalisha - 04/21/2023 10:55 AM EDT Patient is here following up regarding below renal study. He has not heard from [employer]. He is askingfor external order to be placed. Please advise * Telephone Encounter - Maryam Wagner - 02/27/2023 11:41 AM EDT Good morning, Can you please place external order to [facility] for MRA abdomen for renal artery study? We are not able to preform the MRA here. Thank you, [facility] Mri department documented in this encounter Plan of Treatment Not on file documented as of this encounter Visit Diagnoses Not on filedocumented in this encounter Additional Health Concerns Infection Onset Date Last Indicated Resolved Time COVID-19 12/20/2023 12/21/2023 documented as of this encounter Care Teams Paper Core Machine Operator Relationship Specialty Start Date End Date Zari Henry MD [address] [place] [address]308 PCP - General Internal Medicine 08/17/21 Delmis Tran MD [address] [place] [address] 77976 Specialist Cardiology 04/10/23 05/04/23 Xuan Brantley MD [address] [place] [address] 66690 Specialist Cardiology 05/05/23 documented as of this encounter
--- OUTSIDE RECORDS SUMMARY | 2025-07-01 08:00 | XMS_ITS | Encounter Summary ---
[facility] Address [address] [place] [address] Care Team Providers Care Burglar Alarm Assembler Name Role Phone Zari Henry MD Primary Care Provider [phone] Xuan Brantley MD Unavailable [phone] Reason for Visit * Reason Onset Date Comments refill request 07/04/2024 Encounter Details Date Type Department Care Team Description 07/04/2024 Refill Endocrinology - [address] [address] Lea Alex PA-C [address] [place] [address] refill request Social History Tobacco Use Types [...] encounter Miscellaneous Notes * Telephone Encounter - Karla Tovar M.A. - 07/05/2024 8:34 AM EDT Lab Results Component Value Date HGBA1C 9.0 05/03/2024 MALBUR 692.0 11/29/2023 MALBCR 508.8 11/29/2023 CHOL 133 11/29/2023 LDL 24 11/29/2023 HDL 46 11/29/2023 TRIG 315 11/29/2023 GLU 139 11/29/2023 CREAT 2.07 11/29/2023 GABRIELLE 05/06/24 - Florencio NOV 08/06/24 - Florencio * Telephone Encounter - Didi Rabago - 07/04/2024 2:52 PM EDT Patient's sensor got removed today because he had an MRI, he is requesting another one please Patient would like script to be: E-PRESCRIBED/FAXED TO PHARMACY (THE MEDICATION REQUESTED IS ON THE MED [...] N/A Patients current insurance carrier is: Payor: [facility] FFS / Plan: [facility] [employer] / Product Type: MEDICAID RISK documented in this encounter Plan of Treatment Not on file documented as of this encounter Visit Diagnoses Not on filedocumented in this encounter Additional Health Concerns Infection Onset Date Last Indicated Resolved Time COVID-19 12/20/2023 12/21/2023 documented as of this encounter Care Teams Burglar Alarm Assembler Relationship Specialty Start Date End Date Zari Henry MD [address] [place] [address]26 PCP - General Internal Medicine 08/17/21 Xuan Brantley MD [address] [place] [address] 83667 Specialist Cardiology 05/05/23 documented as of this encounter
--- OUTSIDE RECORDS SUMMARY | 2025-07-01 08:00 | XMS_ITS | Encounter Summary ---
Author Organization [facility] Address [address] [place] [address] Care Team Providers Care Oil Distributor Name Role Phone Zari Henry MD Primary Care Provider [phone] Xuan Brantley MD Unavailable [phone] Reason for Visit * Reason Onset Date Comments Prior Authorization 08/19/2024 Encounter Details Date Type Department Care Team Description 08/19/2024 Telephone Endocrinology - [address] [address] Lea Alex PA-C [address] [place] [address] Prior Authorization Social History Tobacco Use Types [...] encounter Miscellaneous Notes * Telephone Encounter - Kallie Rey PA-C - 08/21/2024 12:03 PM EDT Order for CGM was submitted through [facility] to [facility], * Telephone Encounter - Didi debbie Rabago - 08/19/2024 9:02 AM EDT Prior Authorization for Medication-do not complete and send this encounter unless you have the fax from the pharmacy. Is this a Cover My Meds request: [place] of Medication Freestyle ni 2 sensors Dose of Medication What is the RX # from the faxed refill? How does patient take this med? What Pharmacy did the fax come from: [facility] fax #: [phone] [employer] Information from fax: What Prescription Plan does the patient have? [employer] BIN/PCN if applicable: Cardholder ID: Person Code: Relationship Code: Help desk phone: documented in this encounter Plan of Treatment Not on file documented as of this encounter Visit Diagnoses Not on filedocumented in this encounter Additional Health Concerns Infection Onset Date Last Indicated Resolved Time COVID-19 12/20/2023 12/21/2023 documented as of this encounter Care Teams Oil Distributor Relationship Specialty Start Date End Date Zari Henry MD [address] [place] [address] 81742 PCP - General Internal Medicine 08/17/21 Xuan Brantley MD [address] [place] [address] 55242 Specialist Cardiology 05/05/23 documented as of this encounter
--- OUTSIDE RECORDS SUMMARY | 2025-07-01 08:00 | XMS_ITS | Encounter Summary ---
Author Organization [facility] Address [address] [place] [address] Care Team Providers Care Supervising Chef Name Role Phone Zari Henry MD Primary Care Provider [phone] Delmis Tran MD Unavailable [phone] Xuan Brantley MD Unavailable [phone] Encounter Details Date Type Department Care Team Description 12/22/2022 Hospital Medical Records [address] [place] [address] [facility] Social History Tobacco Use Types Packs/Day [...] documented as of this encounter Care Teams Supervising Chef Relationship Specialty Start Date End Date Zari Henry MD [address] [place] [address] [phone] PCP - General Internal Medicine 08/17/21 Delmis Tran MD [address] [place] [address] 24918 Specialist Cardiology 04/10/23 05/04/23 Xuan Brantley MD [address] [place] [address] 13035 Specialist Cardiology 05/05/23 documented as of this encounter
--- OUTSIDE RECORDS SUMMARY | 2025-07-01 08:00 | XMS_ITS | Encounter Summary ---
Author Organization [facility] Address [address] [place] [address] Care Team Providers Care Purchasing Internship Name Role Phone Elliot Garcia MD Primary Care Provider Mckenna Jones MD Primary Care Provider Unavail able Zari Henry MD Primary Care Provider [phone] Delmis Tran MD Unavailable [phone] Xuan Brantley MD Unavailable [phone] Encounter Details Date Type Department Care Team Description 01/01/2019 [facility] Medical Records [address] [place], [place] [address] [place] [address] Social History Tobacco Use Types Packs/Day Years [...] on file documented as of this encounter Procedures Procedure Name Priority Date/Time Associated Diagnosis Comments OUTSIDE EKG Routine 01/01/2019 documented in this encounter Results * OUTSIDE EKG (01/01/2019) Provider Abstract CARDIOLOGY documented in this encounter Visit Diagnoses Not on filedocumented in this encounter Additional Health Concerns Infection Onset Date Last Indicated Resolved Time COVID-19 12/20/2023 12/21/2023 documented as of this encounter Care Teams Purchasing Internship Relationship Specialty Start Date End Date Elliot Garcia MD [address] [place] [address] 36989 PCP - General Internal Medicine 01/19/17 05/16/19 Mckenna Jones MD [address] [place] [address] 20493 PCP - General Internal Medicine 05/17/19 08/16/21 Zari Henry MD [address] [place] [address] 81191 PCP - General Internal Medicine 08/17/21 Delmis Tran MD [address] [place] [address] 59447 Specialist Cardiology 04/10/23 05/04/23 Xuan Brantley MD [address] [place] [address] 02096 Specialist Cardiology 05/05/23 documented as of this encounter
--- OUTSIDE RECORDS SUMMARY | 2025-07-01 08:00 | XMS_ITS | Encounter Summary ---
Author Organization [facility] Address [address] [place] [address] Care Team Providers Care Oil Refiner Name Role Phone Elliot Garcia MD Primary Care Provider Mckenna Jones MD Primary Care Provider Unavail able Zari Henry MD Primary Care Provider [phone] Delmis Tran MD Unavailable [phone] Xuan Brantley MD Unavailable [phone] Encounter Details Date Type Department Care Team Description 09/04/2018 Orders Only Adult Medicine [address] [phone] Pavel Mccracken, ZHOU Social History Tobacco Use [...] as of this encounter Care Teams Oil Refiner Relationship Specialty Start Date End Date Elliot Garcia MD [address] [place] [address] 57364 PCP - General Internal Medicine 01/19/17 05/16/19 Mckenna Jones MD [address] [place] [address] PCP - General Internal Medicine 05/17/19 08/16/21 Zari Henry MD [address] [place] [address] 21681 PCP - General Internal Medicine 08/17/21 Delmis Tran MD [address] [place] [address] 19722 Specialist Cardiology 04/10/23 05/04/23 Xuan Brantley MD [address] [place] [address] 00900 Specialist Cardiology 05/05/23 documented as of this encounter
--- OUTSIDE RECORDS SUMMARY | 2025-07-01 08:00 | XMS_ITS | Encounter Summary ---
[facility] Address [address] [place] [address] Care Team Providers Care Glove Factory Sewer Name Role Phone Elliot Garcia MD Primary Care Provider [phone] Mckenna oJnes MD Primary Care Provider Unavail able Zari Henry MD Primary Care Provider [phone] Delmis Tran MD Unavailable [phone] Xuan Brantley MD Unavailable [phone] Reason for Visit * Reason Onset Date Comments refill request 08/30/2018 Encounter Details Date Type Department Care Team Description 08/30/2018 Refill Adult Medicine [address] [phone] Elliot Garcia MD [address] [place] [address] [phone] refill request Social History Tobacco Use Types [...] encounter Miscellaneous Notes * Telephone Encounter - Doris Cuevas L.P.N. - 08/31/2018 1:35 PM EDT Called Pt message left for him to return my call. He is to call [phone] & ask to speak to either Doris or Leticia. Need to inform this Dr Sheridan will not refill his medication. He needs afollow-up appointment before his medication will be refilled./dg * Telephone Encounter - Doris Cuevas L.P.N. - 08/31/2018 11:06 AM EDT LAST SEEN 08/07/18 * Telephone Encounter - Edna Medel - 08/30/2018 3:59 PM EDT PATIENT ASKING IF PCP OR RAILWAYS ASSISTANT CAN REFILL THIS MEDICATION WAS ORIGINALLY PRESCRIBED BY [facility] Patient would like script to be: E-PRESCRIBED/FAXED TO PHARMACY WHEN WAS THE PATIENT'S LAST APPOINTMENT IN ADULT MEDICINE? 06/28/18 WHEN WAS THE LAST TIME THE PATIENT SAW THEIR PCP? 06/04/18 Does patient have an upcoming appointment? Yes 09/03/18 (THE MEDICATION REQUESTED IS ON THE MED [...] N/A Patients current insurance carrier is: Payor: [employer] FFS / Plan: [employer] / Product Type: MEDICAID RISK documented in this encounter Plan of Treatment Not on file documented as of this encounter Visit Diagnoses Diagnosis Fungal esophagitis Other esophagitis documented in this encounter Additional Health Concerns Infection Onset Date Last Indicated Resolved Time COVID-19 12/20/2023 12/21/2023 documented as of this encounter Care Teams Glove Factory Sewer Relationship Specialty Start Date End Date Elliot Garcia MD [address] [place] [address] 04787 PCP - General Internal Medicine 01/19/17 05/16/19 Mckenna Jones MD [address] [place] [address] 50525 PCP - General Internal Medicine 05/17/19 08/16/21 Zari Henry MD [address] [place] [address] 21769 PCP - General Internal Medicine 08/17/21 Delmis Tran MD [address] [place] [address] 01768 Specialist Cardiology 04/10/23 05/04/23 Xuan Brantley MD [address] [place] [address] 19645 Specialist Cardiology 05/05/23 documented as of this encounter
--- OUTSIDE RECORDS SUMMARY | 2025-07-01 08:00 | XMS_ITS | Encounter Summary ---
Author Organization [facility] Address [address] [place] [address] Care Team Providers Care Allergy And Immunology Specialist Name Role Phone Zari Henry MD Primary Care Provider Encounter Details Date Type Department Care Team (Late st Contact Info) Description 02/14/2025 Billing Patient Not Present Adult Medicine [facility] [address] [place], [place] [phone] Zari Henry MD [address] [place], [place] Social History Tobacco Use Types Packs/Day [...] 1:30 PM EDT Consult Orthopedic Surgery - [place] [address] [place] [phone] Rivas Norman DPM [address] [place] [address] 08/25/2025 2:30 PM EDT Office Visit Adult Medicine [facility] [address] [place], [place] [phone] Nadege Begum PA [address] [place], [place] 09/08/2025 2:15 PM EST [facility] [address] [place] [phone] Nisa Machado MD [address] [place] [address] documented as of this encounter Visit Diagnoses Not on filedocumented in this encounter Care Teams Allergy And Immunology Specialist Relationship Specialty Start Date End Date Zari Henry MD [address] [place] [address] PCP - General Internal Medicine 08/17/21 documented as of this encounter
--- OUTSIDE RECORDS SUMMARY | 2025-07-01 08:01 | XMS_ITS | Encounter Summary ---
Author Organization [facility] Address [address] [place] [address] Care Team Providers Care Technical Business Systems Analyst Name Role Phone Zari Henry MD Primary Care Provider [phone] Xuan Brantley MD Unavailable [phone] Encounter Details Date Type Department Care Team Description 08/07/2023 Orders Only Medical Records [address] [place] [address] Abstract, Provider Social History Tobacco Use Types [...] suspected to have Coronavirus/COVID-19? No / Unsure 07/24/2023 10:54 AM EDT documented as of this encounter Plan of Treatment Not on file documented as of this encounter Procedures Procedure Name Priority Date/Time Associated Diagnosis Comments OUTSIDE CT Routine 07/27/2023 documented in this encounter Results * OUTSIDE CT (07/27/2023) Provider Abstract RADIOLOGY documented in this encounter Visit Diagnoses Not on filedocumented in this encounter Additional Health Concerns Infection Onset Date Last Indicated Resolved Time COVID-19 12/20/2023 12/21/2023 documented as of this encounter Care Teams Technical Business Systems Analyst Relationship Specialty Start Date End Date Zari Henry MD [address] [place] [address] 26181 PCP - General Internal Medicine 08/17/21 Xuan Brantley MD [address] [place] [address] 00404 Specialist Cardiology 05/05/23 documented as of this encounter
--- OUTSIDE RECORDS SUMMARY | 2025-07-01 08:01 | XMS_ITS | Encounter Summary ---
Author Organization [facility] Address [address] [place] [address] Care Team Providers Care Slot Tag Inserter Name Role Phone Zari Henry MD Primary Care Provider [phone] Delmis Tran MD Unavailable [phone] Xuan Brantley MD Unavailable [phone] Encounter Details Date Type Department Care Team Description 12/03/2021 CG Report Medical Records [address] [place] [address] Abstract, Provider Social History Tobacco Use Types [...] or suspected to have Coronavirus / COVID-19? Unable to assess 12/03/2021 9:21 AM EST documented as of this encounter Plan of Treatment Not on file documented as of this encounter Visit Diagnoses Not on filedocumented in this encounter Additional Health Concerns Infection Onset Date Last Indicated Resolved Time COVID-19 12/20/2023 12/21/2023 documented as of this encounter Care Teams Slot Tag Inserter Relationship Specialty Start Date End Date Zari Henry MD [address] [place] [address] 35454 PCP - General Internal Medicine 08/17/21 Delmis Tran MD [address] [place] [address] 48143 Specialist Cardiology 04/10/23 05/04/23 Xuan Brantley MD [address] [place] [address] 77199 Specialist Cardiology 05/05/23 documented as of this encounter
--- OUTSIDE RECORDS SUMMARY | 2025-07-01 08:01 | XMS_ITS | Encounter Summary ---
Author Organization [facility] Address [address] [place] [address] Care Team Providers Care Electrician Maintenance Name Role Phone Zari Henry MD Primary Care Provider [phone] Xuan Brantley MD Unavailable [phone] Encounter Details Date Type Department Care Team Description 05/19/2023 Release of Information Medical Records [address] [place] [address] [facility] Social History Tobacco Use Types Packs/Day [...] Recorded In the last 10 days, have reilly u been in contact with someone who was confirmed or suspected to have Coronavirus/COVID-19? No / Unsure 05/18/2023 2:30 PM EDT documented as of this encounter Plan of Treatment Not on file documented as of this encounter Visit Diagnoses Not on filedocumented in this encounter Additional Health Concerns Infection Onset Date Last Indicated Resolved Time COVID-19 12/20/2023 12/21/2023 documented as of this encounter Care Teams Electrician Maintenance Relationship Specialty Start Date End Date Zari Henry MD [address] [place] [address] 7[address]4 PCP - General Internal Medicine 08/17/21 Xuan Brantley MD [address] [place] [address] 30319 Specialist Cardiology 05/05/23 documented as of this encounter
--- OUTSIDE RECORDS SUMMARY | 2025-07-01 08:01 | XMS_ITS | Encounter Summary ---
Author Organization [facility] Address [address] [place] [address] Care Team Providers Care Emergency Medical Dispatcher Name Role Phone Zari Henry MD Primary Care Provider [phone] Xuan Brantley MD Unavailable [phone] Reason for Visit * Reason Onset Date Comments Faxed Order 05/11/2023 Deanna [facility] [id number] Encounter Details Date Type Department Care Team Description 05/11/2023 Telephone Adult Medicine [facility] [address] [place] [address] [phone] Zari Henry MD [address] [place] [address] [phone] Faxed Order ([facility] [id number]) Social History Tobacco Use Types Packs/Day Years [...] suspected to have Coronavirus/COVID-19? No / Unsure 04/21/2023 10:20 AM EDT documented as of this encounter Plan of Treatment Not on file documented as of this encounter Visit Diagnoses Not on filedocumented in this encounter Additional Health Concerns Infection Onset Date Last Indicated Resolved Time COVID-19 12/20/2023 12/21/2023 documented as of this encounter Care Teams Emergency Medical Dispatcher Relationship Specialty Start Date End Date Zari Henry MD [address] [place] [address] 18438 PCP - General Internal Medicine 08/17/21 Xuan Brantley MD [address] [place] [address] 45955 Specialist Cardiology 05/05/23 documented as of this encounter
--- OUTSIDE RECORDS SUMMARY | 2025-07-01 08:01 | XMS_ITS | Encounter Summary ---
[facility] Address [address] [place] [address] Care Team Providers Care Client Development Manager Name Role Phone Elliot Garcia MD Primary Care Provider [phone] Mckenna Jones MD Primary Care Provider Unavail able Zari Henry MD Primary Care Provider Delmis Tran MD Unavailable [phone] Xuan Brantley MD Unavailable [phone] Encounter Details Date Type Department Care Team Description 03/26/2019 [facility] Medical Records [address] [place] [address] Abstract, Provider Social History Tobacco Use Types [...] documented as of this encounter Care Teams Client Development Manager Relationship Specialty Start Date End Date Elliot Garcia MD [address] [place] [address] 56280 PCP - General Internal Medicine 3/23/17 7/18/19 Mckenna Jones MD [address] [place] [address] 01567 PCP - General Internal Medicine 05/17/19 08/16/21 Zari Henry MD [address] [place] [address] PCP - General Internal Medicine 08/17/21 Delmis Tran MD [address] [place] [address] Specialist Cardiology 04/10/23 05/04/23 Xuan Brantley MD [address] [place] [address] 62508 Specialist Cardiology 05/05/23 documented as of this encounter
--- OUTSIDE RECORDS SUMMARY | 2025-07-01 08:01 | XMS_ITS | Encounter Summary ---
Author Organization [facility] Address [address] [place] [address] Care Team Providers Care Municipal Maintenance Worker Name Role Phone Zari Henry MD Primary Care Provider [phone] Delmis Tran MD Unavailable [phone] Xuan Brantley MD Unavailable [phone] Reason for Visit * Reason Onset Date Comments Prior Authorization 03/24/2022 MRI abdomen Encounter Details Date Type Department Care Team Description 03/24/2022 Telephone Adult Medicine [facility] [address] [place] [address] [phone] Per Abad, PAPippaC [address] [place] [address] [phone] Prior Authorization (MRI abdomen) Social History Tobacco Use Types Packs/Day Years [...] suspected to have Coronavirus/COVID-19? No / Unsure 03/23/2022 2:31 PM EDT documented as of this encounter Miscellaneous Notes * Telephone Encounter - Becky [place] - 03/24/2022 10:03 AM EDT Pending with insurance Thank you, Becky MathurBalbir Mohr Auth Department documented in this encounter Plan of Treatment Not on file documented as of this encounter Visit Diagnoses Not on filedocumented in this encounter Additional Health Concerns Infection Onset Date Last Indicated Resolved Time COVID-19 12/20/2023 12/21/2023 documented as of this encounter Care Teams Municipal Maintenance Worker Relationship Specialty Start Date End Date Zari Henry MD [address] [place] [address] 16632 PCP - General Internal Medicine 08/17/21 Delmis Tran MD [address] [place] [address] 51456 Specialist Cardiology 04/10/23 05/04/23 Xuan Brantley MD [address] [place] [address] 95129 Specialist Cardiology 05/05/23 documented as of this encounter
--- OUTSIDE RECORDS SUMMARY | 2025-07-01 08:01 | XMS_ITS | Encounter Summary ---
Author [facility] Address [address] [place] [address] Care Team Providers Care Echo Vascular Tech Name Role Phone Zari Henry MD Primary Care Provider [phone] Delmis Tran MD Unavailable [phone] Xuan Brantley MD Unavailable Encounter Details Date Type Department Care Team Description 04/21/2023 Incoming Correspondence Medical Records [address] [place] [address] Abstract, Provider Social History Tobacco Use Types [...] documented as of this encounter Care Teams Echo Vascular Tech Relationship Specialty Start Date End Date Zari Henry MD [address] [place] [address] 11456 PCP - General Internal Medicine 08/17/21 Delmis Tran MD [address] [place] [address] 04659 Specialist Cardiology 04/10/23 05/04/23 Xuan Brantley MD [address] [place] [address] 01647 Specialist Cardiology 05/05/23 documented as of this encounter
--- OUTSIDE RECORDS SUMMARY | 2025-07-01 08:01 | XMS_ITS | Encounter Summary ---
[facility] Address [address] [place] [address] Care Team Providers Care Quality Assurance Advisor Name Role Phone Mckenna Jones MD Primary Care Provider Unavail able Zari Henry MD Primary Care Provider [phone] Delmis Tran MD Unavailable [phone] Xuan Brantley MD Unavailable [phone] Reason for Visit * Reason Onset Date Comments Provider Call Back 12/16/2019 Encounter Details Date Type Department Care Team Description 12/16/2019 Telephone Dermatology [address] [place] [address] [phone] Vijay Pantoja PA-C Provider Call Back Social History Tobacco Use [...] encounter Miscellaneous Notes * Telephone Encounter - Daphne Sims C.M.A. - 12/16/2019 10:11 AM EST I left a message for the patient to return my call. * Telephone Encounter - Natacha Brice - 12/16/2019 10:05 AM EST Patient has an appointment today with Mr. Pantoja and is wondering if he will need someone to come with him to drive him home. Please review and advise. documented in this encounter Plan of Treatment Not on file documented as of this encounter Visit Diagnoses Not on filedocumented in this encounter Additional Health Concerns Infection Onset Date Last Indicated Resolved Time COVID-19 12/20/2023 12/21/2023 documented as of this encounter Care Teams Quality Assurance Advisor Relationship Specialty Start Date End Date Mckenna Jones MD PCP - General Internal Medicine 05/17/19 08/16/21 Zari Henry MD [address] [place] [address] 87832 PCP - General Internal Medicine 08/17/21 Delmis Tran MD [address] [place] [address] 21260 Specialist Cardiology 04/10/23 05/04/23 Xuan Brantley MD [address] [place] [address] 68013 Specialist Cardiology 05/05/23 documented as of this encounter
--- OUTSIDE RECORDS SUMMARY | 2025-07-01 08:01 | XMS_ITS | Encounter Summary ---
Author Organization [facility] Address [address] [place] [address] Care Team Providers Care Patient Biller Name Role Phone Zari Henry MD Primary Care Provider [phone] Xuan Brantley MD Unavailable [phone] Encounter Details Date Type Department Care Team Description 06/27/2023 Hospital Medical Records [address] [place] [address] Roger Stephen MD Social History Tobacco Use Types Packs/Day [...] suspected to have Coronavirus/COVID-19? No / Unsure 06/30/2023 12:57 PM EDT documented as of this encounter Plan of Treatment Not on file documented as of this encounter Visit Diagnoses Not on filedocumented in this encounter Additional Health Concerns Infection Onset Date Last Indicated Resolved Time COVID-19 12/20/2023 12/21/2023 documented as of this encounter Care Teams Patient Biller Relationship Specialty Start Date End Date Zari Henry MD [address] [place] [address] 71788 PCP - General Internal Medicine 08/17/21 Xuan Brantley MD [address] [place] [address] 20212 Specialist Cardiology 05/05/23 documented as of this encounter
--- OUTSIDE RECORDS SUMMARY | 2025-07-01 08:01 | XMS_ITS | Encounter Summary ---
Author [facility] Address [address] [place] [address] Care Team Providers Care Brine Purifier Name Role Phone Mckenna Jones MD Primary Care Provider Unavail able Zari Henry MD Primary Care Provider [phone] Delmis Tran MD Unavailable [phone] Xuan Brantley MD Unavailable [phone] Encounter Details Date Type Department Care Team Description 07/19/2021 Orders Only Adult Medicine [facility] [address] [place] [address] Lea Alex PA-C [address] [place], [place] [phone] Decreased GFR (Primary Dx) Social History Tobacco Use Types [...] have Coronavirus / COVID-19? No / Unsure 07/16/2021 1:01 PM EDT documented as of this encounter Plan of Treatment Not on file documented as of this encounter Results * (ABNORMAL) BASIC METABOLIC PANEL (08/02/2021 11:32 AM EDT) Blood Urea Nitrogen 22 5 - 25 mg/dL 08/02/2021 3:12 PM EDT [facility] CREAT 1.48(H) 0.7 - 1.3 mg/dL 08/02/2021 3:12 PM EDT [facility] GLOMERULAR FILTRATION RATE 51 08/02/2021 3:12 PM EDT [facility] Comment: If patient is -[place], multiply result by 1.21 Chronic Kidney Disease: < 60 ml/min/1.73 square meters Kidney Failure: < 15 ml/min/1.73 square meters NA 139 135 - 145 mEq/L 08/02/2021 3:12 PM EDT [facility] K 3.6 3.5 - 5.5 mmol/L 08/02/2021 3:12 PM EDT [facility] CL 101 96 - 110 mmol/L 08/02/2021 3:12 PM EDT [facility] CALCIUM 8.9 8.5 - 10.5 mg/dL 08/02/2021 3:12 PM EDT [facility] GLUCOSE 172(H) 70 - 100 mg/dL 08/02/2021 3:21 PM EDT [facility] Comment:Reference range appl icable to fasting specimens only CARBON DIOXIDE (CO2) 26 21 - 32 mmol/L 08/02/2021 3:21 PM EDT [facility] ANION GAP 12(H) 3 - 11 08/02/2021 3:21 PM EDT [facility] 08/02/2021 11:3 2 AM EDT 08/02/2021 11:33 AM EDT Narrative [facility] - 08/02/2021 3:21 PM EDT Release to patient->Immediate Lea Alex PA-C LAB [facility] documented in this encounter Visit Diagnoses Diagnosis Decreased GFR- Primary Nonspecific abnormal results of kidney function study Decreased GFR Nonspecific abnormal results of kidney function study documented in this encounter Additional Health Concerns Infection Onset Date Last Indicated Resolved Time COVID-19 12/20/2023 12/21/2023 documented as of this encounter Care Teams Brine Purifier Relationship Specialty Start Date End Date Mckenna Jones MD PCP - General Internal Medicine 05/17/19 08/16/21 Zari Henry MD [address] [place] [address] 68673 PCP - General Internal Medicine 08/17/21 Delmis Tran MD [address] [place] [address] 90323 Specialist Cardiology 04/10/23 05/04/23 Xuan Brantley MD [address] [place] [address] 26959 Specialist Cardiology 05/05/23 documented as of this encounter
--- OUTSIDE RECORDS SUMMARY | 2025-07-01 08:01 | XMS_ITS | Encounter Summary ---
Author Organization [facility] Address [address] [place] [address] Care Team Providers Care Small Stock Facer Name Role Phone Mckenna Jones MD Primary Care Provider Unavail able Zari Henry MD Primary Care Provider Delmis Tran MD Unavailable [phone] Xuan Brantley MD Unavailable [phone] Encounter Details Date Type Department Care Team Description 03/10/2020 Procedure Analyst Report Medical Records [address] [place] [address]13 Eriberto Dominguez MD Social History Tobacco Use Types Packs/Day [...] documented as of this encounter Care Teams Small Stock Facer Relationship Specialty Start Date End Date Mckenna Jones MD PCP - General Internal Medicine 05/17/19 08/16/21 Zari Henry MD [address] [place] [address] 23683 PCP - General Internal Medicine 08/17/21 Delmis Tran MD [address] [place] [address] [phone] Specialist Cardiology 04/10/23 05/04/23 Xuan Brantley MD [address] [place] [address] 18200 Specialist Cardiology 05/05/23 documented as of this encounter
--- OUTSIDE RECORDS SUMMARY | 2025-07-01 08:01 | XMS_ITS | Encounter Summary ---
Author Organization [facility] Address [address] [place] [address] [address] Team Providers Care [address] Mechanical Engineer Name Role Phone Elliot Garcia MD Primary Care Provider [phone] Mckenna Jones MD Primary Care Provider Unavail able Zari Henry MD Primary Care Provider [phone] Delmis Tran MD Unavailable [phone] Xuan Brantley MD Unavailable [phone] Encounter Details Date Type Department Care Team Description 02/10/2019 [facility] Medical Records [address] [place] [address] 19473 Omar Ortiz MD Social History Tobacco Use Types Packs/Day [...] documented as of this encounter Care Teams Rd Mechanical Engineer Relationship Specialty Start Date End Date Elliot Garcia MD [address] [place] [address] 78516 PCP - General Internal Medicine 01/19/17 05/16/19 Mckenna Jones MD [address] [place] [address] PCP - General Internal Medicine 05/17/19 08/16/21 Zari Henry MD [address] [place] [address] 32577 PCP - General Internal Medicine 08/17/21 Delmis Tran MD [address] [place] [address] Specialist Cardiology 04/10/23 05/04/23 Xuan Brantley MD [address] [place] [address] 43559 Specialist Cardiology 05/05/23 documented as of this encounter
--- OUTSIDE RECORDS SUMMARY | 2025-07-01 08:01 | XMS_ITS | Encounter Summary ---
Author [facility] Address [address] [place] [address] Care Team Providers Care Trucker Hand Name Role Phone Zari Henry MD Primary Care Provider [phone] Xuan Brantley MD Unavailable [phone] Reason for Visit * Reason Onset Date Comments Provider Call Back 07/06/2023 Encounter Details Date Type Department Care Team Description 07/06/2023 Telephone Endocrinology - [address] [address] Lea Alex PA-C [address] [place] [address] Provider Call Back Social History Tobacco Use [...] encounter Miscellaneous Notes * Telephone Encounter - Debbie Coello [place] - 07/06/2023 9:18 AM EDT Caller requesting call back from provider: Is the caller the patient? YES Reason for call back: Patient would like to talk to Yuri PDM for insulin pump. Patient received itin the mail and would like to talk to Yuri. Patient is returning Yuri's phone call Caller offered to speak with the nurse [...] documented as of this encounter Care Teams Trucker Hand Relationship Specialty Start Date End Date Zari Henry MD [address] [place] [address] PCP - General Internal Medicine 08/17/21 Xuan Brantley MD [address] [place] [address] 36114 Specialist Cardiology 05/05/23 documented as of this encounter
--- OUTSIDE RECORDS SUMMARY | 2025-07-01 08:01 | XMS_ITS | Encounter Summary ---
Author Organization [facility] Address [address] [place] [address] Care Team Providers Care Sourcing Assistant Name Role Phone Mckenna Jones MD Primary Care Provider Unavail able Zari Henry MD Primary Care Provider Delmis Tran MD Unavailable [phone] Xuan Brantley MD Unavailable [phone] Encounter Details Date Type Department Care Team Description 07/28/2021 Orders Only Pulmonology - [place] [address] [facility] [address] [place] [address] Chuckie [place] MD [address] [facility] [address] [place] [address] Chronic obstructive pulmonary disease, unspecified COPD type (HCC); Nicotine dependence, uncomplicated, unspecified nicotine product type; Cannabis abuse Social History Tobacco Use Types Packs/Day Years [...] Procedure Name Priority Date/Time Associated Diagnosis Comments AR NONINVASIVE EAR/PULSE OXIMETRY OVERNIGHT MONITOR Routine 07/11/2021 Chronic obstructive pulmonary disease, unspecified COPD type (HCC) Nicotine dependence, uncomplicated, unspecified nicotine product type Cannabis abuse documented in this encounter Results * OXIMETRY,OVERNITE (07/11/2021) Chuckie [place] MD PERFORMABL ES documented in this encounter Visit Diagnoses Diagnosis Chronic obstructive pulmonary disease, unspecified COPD type (HCC) Nicotine dependence, uncomplicated, unspecified nicotine product type Cannabis abuse Cannabis abuse, unspecified documented in this encounter Additional Health Concerns Infection Onset Date Last Indicated Resolved Time COVID-19 12/20/2023 12/21/2023 documented as of this encounter Care Teams Sourcing Assistant Relationship Specialty Start Date End Date Mckenna Jones MD PCP - General Internal Medicine 05/17/19 08/16/21 Zari Henry MD [address] [place] [address] 97184 PCP - General Internal Medicine 08/17/21 Delmis Tran MD [address] [place] [address] 43352 Specialist Cardiology 04/10/23 05/04/23 Xuan Brantley MD [address] [place] [address] 94597 Specialist Cardiology 05/05/23 documented as of this encounter
--- OUTSIDE RECORDS SUMMARY | 2025-07-01 08:01 | XMS_ITS | Encounter Summary ---
Author Organization [facility] Address [address] [place] [address] Care Team Providers Care Lead Burner Apprentice Name Role Phone Zari Henry MD Primary Care Provider Encounter Details Date Type Department Care Team (Late st Contact Info) Description 04/10/2025 Billing Patient Not Present Adult Medicine [facility] [address] [place], [place] [phone] Zari Henry MD [address] [place], [place] Social History Tobacco Use Types Packs/Day [...] 1:30 PM EDT Consult Orthopedic Surgery - [place] [address] [place] [phone] Rivas Norman DPM [address] [place] [address] 08/25/2025 2:30 PM EDT Office Visit Adult Medicine [facility] [address] [place], [place] [phone] Nadege Begum PA [address] [place], [place] 09/08/2025 2:15 PM EST [facility] [address] [place] [phone] Nisa Machado MD [address] [place] [address] documented as of this encounter Visit Diagnoses Not on filedocumented in this encounter Care Teams Lead Burner Apprentice Relationship Specialty Start Date End Date Zari Henry MD [address] [place] [address] PCP - General Internal Medicine 08/17/21 documented as of this encounter
--- OUTSIDE RECORDS SUMMARY | 2025-07-01 08:01 | XMS_ITS | Encounter Summary ---
Author Organization [facility] Address [address] [place] [address] Care Team Providers Care County Home Demonstration Agent Name Role Phone Mckenna Jones MD Primary Care Provider Unavail able Zari Henry MD Primary Care Provider [phone] Delmis Tran MD Unavailable [phone] Xuan Brantley MD Unavailable [phone] Encounter Details Date Type Department Care Team Description 01/01/2020 Release of Information Medical Records [address] [place] [address] Abstract, Provider Social History Tobacco Use Types [...] documented as of this encounter Care Teams County Home Demonstration Agent Relationship Specialty Start Date End Date Mckenna Jones MD PCP - General Internal Medicine 05/17/19 08/16/21 Zari Henry MD [address] [place] [address] 0[address]20 PCP - General Internal Medicine 08/17/21 Delmis Tran MD [address] [place] [address] [phone] Specialist Cardiology 04/10/23 05/04/23 Xuan Brantley MD [address] [place] [address] 28669 Specialist Cardiology 05/05/23 documented as of this encounter
--- OUTSIDE RECORDS SUMMARY | 2025-07-01 08:01 | XMS_ITS | Clinical Summary ---
Author Organization [facility] Address [address] [facility] [address] [place] [address] Phone Care Team Providers Care Lawn Mower Mechanic Name Role Phone Zari Henry MD Primary Care Provider [phone] Allergies Active Allergy Reactions Criticality Noted Date [...] 30 tablet 11 5 12/11/19 26 Active ergocalciferol (Drisdol) 1.25 MG (67444 UT) capsule Take 1 capsule (50,000 Units total) by mouth 1 (one) time per week 12 capsule 5 06/19/20 26 Active ferrous sulfate (Fe Tabs) 325 (65 Fe) MG EC tablet Take 1 tablet (325 mg total) by mouth 1 (one) time each day with breakfast Do not crush, chew, or split. 90 tablet 3 08/06/19/20 Active Active Problems Problem Noted Date Diagnosed [...] Encounters Date Type Department Care Team Description 06/19/2025 3:45 PM EDT [facility] Visit [facility] [address] [address] Jong Hall MD Stage 3 chronic kidney disease, not otherwise specified (HCC) (Primary Dx); Hypertension; Diabetes mellitus, not otherwise specified (HCC); Heart failure with normal ejection fraction (HCC); Other proteinuria from Last 3 Months Immunizations Immunization Administration Dates Next Due Influenza, [...] Sign Reading Time Taken Comments Blood Pressure 142/73 06/19/2025 3:46 PM EDT Pulse 98 06/19/2025 3:46 PM EDT Temperature - - Respiratory Rate - - Oxygen Saturation - - Inhaled Oxygen Concentration - - Weight 57.6 kg (127 lb) 06/19/2025 3:46 PM EDT Height - - Body Mass Index - - Plan of Treatment Upcoming Encounters Date Type Department Care Team (Late st Contact Info) Description 08/20/2025 2:45 PM EDT Office Visit [facility] [address] [address] Jong Hall MD [address] [phone] Health Maintenance Due Date Last Done Comments [...] 05/08/2025 02/06/2025, 10/30 Influenza Vaccine (#1) 2025 , 07/22/2022, 07/22/2022, Additional history exists Pneumococcal Vaccine: [...] Creatinine, Ur 378.0 Not Estab. mg/dL [facility] Albumin, Urine 1,229.7 Not Estab. ug/mL [facility] Comment: Results confirmed on dilution. Albumin/Creatin ine Ratio 325(H) 0 - 29 mg/g creat [facility] Comment: Normal: 0 - 29 Moderately increased: 30 - 300 Severely increased: >300 05/20/2025 11:2 1 AM EDT 05/20/2025 us Jong Hall MD LAB URINE ORDERABLES Final Resul t Performing Organization Address [facility] Co de Phone Number [employer] [facility] [address] [place] [address] * (ABNORMAL) Vitamin D 25 Hydroxy (05/20/2025 11:21 AM EDT) Vitamin D, 25-OH, Total 10.8(L) 30.0 - 100.0 ng/mL [facility] Comment: Vitamin D deficiency has been defined by the [place] of Medicine and an Endocrine Society practice guideline as a level of serum 25-OH vitamin D less than 20 ng/mL (1,2). The Endocrine Society went on to further define vitamin D insufficiency as a level between 21 and 29 ng/mL (2). 1. IOM (Gardner of Medicine). 2010. Dietary reference intakes for calcium and D. Law [place]: The National Academies Press. 2. Rochelle MF, Vickie JAMES, Ramses DOYLE, et al. Evaluation, treatment, and prevention of vitamin D deficiency: an Endocrine Society clinical practice guideline. JCEM. 2010; 96(7):1911-30. 05/20/2025 11:2 1 AM EDT 05/20/2025 us Jong Hall MD LAB BLOOD ORDERABLES Final Resul t Performing Organization Address [facility] Co de Phone Number [facility] [address] [place] [address] * PTH, Intact (05/20/2025 11:21 AM EDT) PTH 43 15 - 65 pg/mL [facility] 05/20/2025 11:2 1 AM EDT 05/20/2025 us Jong Hall MD LAB BLOOD ORDERABLES Final Resul t Performing Organization Address [facility] Co de Phone Number [employer] - [place] [facility] [address] [place] [address] * (ABNORMAL) Renal Function Panel (05/20/2025 11:21 AM EDT) Glucose 150(H) 70 - 99 mg/dL [facility] BUN 18 6 - 24 mg/dL [facility] Creatinine 1.71(H) 0.76 - 1.27 mg/dL [facility] eGFR CKD-EPI CR 2020 48(L) >59 mL/min/1.7 3 [facility] BUN/Creatinine Ratio 11 9 - 20 [facility] Sodium 139 134 - 144 mmol/L [facility] Potassium 4.2 3.5 - 5.2 mmol/L [facility] Chloride 104 96 - 106 mmol/L [facility] Bicarbonate (CO2) 18(L) 20 - 29 mmol/L [facility] Calcium 8.9 8.7 - 10.2 mg/dL [facility] Albumin 3.9(L) 4.1 - 5.1 g/dL [facility] Phosphorus 2.4(L) 2.8 - 4.1 mg/dL [facility] 05/20/2025 11:2 1 AM EDT 05/20/2025 Jong Hall MD LAB BLOOD ORDERABLES Final Resul t [employer] [place] [facility] [address] [place] [address] from Last [id number] [place] [id number] [facility] [address] [place] [id number] Care Teams Lawn Mower Mechanic Relationship Specialty Start Date End Date Zari Henry MD [address] [place] [address] PCP - General Internal Medicine 12/09/24
--- OUTSIDE RECORDS SUMMARY | 2025-07-01 08:01 | XMS_ITS | Encounter Summary ---
Author Organization [facility] Address [address] [place] [address] Care Team Providers Care Tile Installer Name Role Phone Zari Henry MD Primary Care Provider Encounter Details Date Type Department Care Team (Late st Contact Info) Description 01/30/2025 Billing Patient Not Present Adult Medicine [facility] [address] [place], [place] [phone] Zari Henry MD [address] [place], [place] Social History Tobacco Use Types Packs/Day [...] 1:30 PM EDT Consult Orthopedic Surgery - [place] [address] [place] [phone] Rivas Norman DPM [address] [place] [address] 08/25/2025 2:30 PM EDT Office Visit Adult Medicine [facility] [address] [place], [place] [phone] Nadege Begum PA [address] [place], [place] 09/08/2025 2:15 PM EST [facility] [address] [place] [phone] Nisa Machado MD [address] [place] [address] documented as of this encounter Visit Diagnoses Not on filedocumented in this encounter Care Teams Tile Installer Relationship Specialty Start Date End Date Zari Henry MD [address] [place] [address] PCP - General Internal Medicine 08/17/21 documented as of this encounter
--- OUTSIDE RECORDS SUMMARY | 2025-07-01 08:01 | XMS_ITS | Encounter Summary ---
Author Organization [facility] Address [address] [place] [address] Care Team Providers Care Software Support Representative Name Role Phone Elliot Garcia MD Primary Care Provider [phone] Mckenna Jones MD Primary Care Provider Unavail able Zari Henry MD Primary Care Provider [phone] Delmis Tran MD Unavailable [phone] Xuan Brantley MD Unavailable [phone] Encounter Details Date Type Department Care Team Description 02/08/2019 [facility] Medical Records [address] [place] [address] Yevgeniy Chan MD Social History Tobacco Use Types Packs/Day [...] documented as of this encounter Care Teams Software Support Representative Relationship Specialty Start Date End Date Elliot Gracia MD [address] [place] [address] PCP - General Internal Medicine 01/19/17 05/16/19 Mckenna Jones MD [address] [place] [address] PCP - General Internal Medicine 05/17/19 08/16/21 Zari Henry MD [address] [place] [address] PCP - General Internal Medicine 08/17/21 Delmis Tran MD [address] [place] [address] Specialist Cardiology 04/10/23 05/04/23 Xuan Brantley MD [address] [place] [address] Specialist Cardiology 05/05/23 documented as of this encounter
--- OUTSIDE RECORDS SUMMARY | 2025-07-01 08:01 | XMS_ITS | Encounter Summary ---
Author [facility] Address [address] [place] [address] Care Team Providers Care Process Improvement Consultant Name Role Phone Elliot Garcia MD Primary Care Provider Mckenna Jones MD Primary Care Provider Unavail able Zari Henry MD Primary Care Provider Delmis Tran MD Unavailable [phone] Xuan Brantley MD Unavailable [phone] Encounter Details Date Type Department Care Team Description 03/21/2019 Transfer Records Medical Records [address] [place] [id number] [place] [address] Social History Tobacco Use Types Packs/Day Years [...] documented as of this encounter Care Teams Process Improvement Consultant Relationship Specialty Start Date End Date Elliot Garcia MD [address] [place] [address] PCP - General Internal Medicine 01/19/17 05/16/19 Mckenna Jones MD [address] [place] [address] PCP - General Internal Medicine 05/17/19 08/16/21 Zari Henry MD [address] [place] [address] PCP - General Internal Medicine 08/17/21 Delmis Tran MD [address] [place] [address] Specialist Cardiology 04/10/23 05/04/23 Xuan Brantley MD [address] [place] [address] Specialist Cardiology 05/05/23 documented as of this encounter
--- OUTSIDE RECORDS SUMMARY | 2025-07-01 08:01 | XMS_ITS | Encounter Summary ---
Author Organization [facility] Address [address] [place] [address] Care Team Providers Care Tube Skiver Name Role Phone Mckenna Jones MD Primary Care Provider Unavail able Zari Henry MD Primary Care Provider [phone] Delmis Tran MD Unavailable [phone] Xuan Brantley MD Unavailable [phone] Encounter Details Date Type Department Care Team Description 07/26/2021 Telephone Pulmonology - [place] [address] [facility] [address] [place] [address] Nisa Machado MD [address] [place] [address] Social History Tobacco Use Types Packs/Day Years [...] Procedure Name Priority Date/Time Associated Diagnosis Comments OXYGEN-HOME Routine 07/26/2021 6:43 PM EDT Chronic obstructive pulmonary disease, unspecified COPD type (HCC) documented in this encounter Visit Diagnoses Diagnosis Chronic obstructive pulmonary disease, unspecified COPD type (HCC)- Primary documented in this encounter Additional Health Concerns Infection Onset Date Last Indicated Resolved Time COVID-19 12/20/2023 12/21/2023 documented as of this encounter Care Teams Tube Skiver Relationship Specialty Start Date End Date Mckenna Jones MD PCP - General Internal Medicine 05/17/19 08/16/21 Zari Henry MD [address] [place] [address] PCP - General Internal Medicine 08/17/21 Delmis Tran MD [address] [place] [address] Specialist Cardiology 04/10/23 05/04/23 Xuan Brantley MD [address] [place] [address] Specialist Cardiology 05/05/23 documented as of this encounter
--- OUTSIDE RECORDS SUMMARY | 2025-07-01 08:01 | XMS_ITS | Encounter Summary ---
Author Organization [facility] Address [address] [place] [address] Care Team Providers Care Satellite Tv Technician Name Role Phone Zari Henry MD Primary Care Provider [phone] Xuan Brantley MD Unavailable [phone] Encounter Details Date Type Department Care Team Description 05/26/2023 [facility] Report Medical Records [address] [place] [address] Abstract, Provider Social History Tobacco Use Types [...] documented as of this encounter Care Teams Satellite Tv Technician Relationship Specialty Start Date End Date Zari Henry MD [address] [place] [address] PCP - General Internal Medicine 08/17/21 Xuan Brantley MD [address] [place] [address] Specialist Cardiology 05/05/23 documented as of this encounter
--- OUTSIDE RECORDS SUMMARY | 2025-07-01 08:01 | XMS_ITS | Encounter Summary ---
Author Organization [facility] Address [address] [place] [address] Care Team Providers Care Family Resource Management Professor Name Role Phone Elliot Garcia MD Primary Care Provider Mckenna Jones MD Primary Care Provider Unavail able Zari Henry MD Primary Care Provider [phone] Delmis Tran MD Unavailable [phone] Xuan Brantley MD Unavailable [phone] Reason for Visit * Reason Onset Date Comments Hedis 02/01/2019 DM labs due appt 02/15/19 Encounter Details Date Type Department Care Team Description 02/01/2019 Telephone Adult Medicine [address] [phone] Elliot Garcia MD [address] [place] [address] [phone] Hedis (DM labs due appt 02/15/19) Social History Tobacco Use Types Packs/Day Years [...] encounter Miscellaneous Notes * Telephone Encounter - Stephanie Jones - 02/01/2019 12:09 PM EDT ..A message was left on the patients voice mail to return call to [facility]. If patient calls back, please instruct the patient to have their diabetes lab work completed at least 3 days prior to their upcoming appointment in Adult Medicine on 02/15/19 at 1:00 pm with Pavel Mccracken NP. Let the patient know our lab is open on the weekends in the [place] office only. The patient does not need to be fasting to complete the lab work. documented in this encounter Plan of Treatment Not on file documented as of this encounter Visit Diagnoses Diagnosis Type 2 diabetes mellitus with diabetic nephropathy, without long-term current use of insulin (HCC)- Primary Hyperlipidemia LDL goal <100 Other and unspecified hyperlipidemia documented in this encounter Additional Health Concerns Infection Onset Date Last Indicated Resolved Time COVID-19 12/20/2023 12/21/2023 documented as of this encounter Care Teams Family Resource Management Professor Relationship Specialty Start Date End Date Elliot Garcia MD [address] [place], [place] [phone] PCP - General Internal Medicine 01/19/17 05/16/19 Mckenna Jones MD [address] [place] [address] PCP - General Internal Medicine 05/17/19 08/16/21 Zari Henry MD [address] [place] [address] PCP - General Internal Medicine 08/17/21 Delmis Tran MD [address] [place] [address] Specialist Cardiology 04/10/23 05/04/23 Xuan Brantley MD [address] [place], [place] [phone] Specialist Cardiology 05/05/23 documented as of this encounter
--- OUTSIDE RECORDS SUMMARY | 2025-07-01 08:01 | XMS_ITS | Encounter Summary ---
Author [facility] Address [address] [place] [address] Care Team Providers Care Tunnel Elastic Operator Lockstitch Name Role Phone Zari Henry MD Primary Care Provider [phone] eDlmis Tran MD Unavailable [phone] Xuan Brantley MD Unavailable [phone] Encounter Details Date Type Department Care Team Description 10/15/2021 [facility] Medical Records [address] [place] [address] Lea Alex PA-C [address] [place] [address] Social History Tobacco Use Types Packs/Day Years [...] have Coronavirus / COVID-19? No / Unsure 10/15/2021 1:45 PM EST documented as of this encounter Plan of Treatment Not on file documented as of this encounter Procedures Procedure Name Priority Date/Time Associated Diagnosis Comments OUTSIDE LAB Routine 10/15/2021 documented in this encounter Results * OUTSIDE LAB (10/15/2021) Provider Default LAB documented in this encounter Visit Diagnoses Not on filedocumented in this encounter Additional Health Concerns Infection Onset Date Last Indicated Resolved Time COVID-19 12/20/2023 12/21/2023 documented as of this encounter Care Teams Tunnel Elastic Operator Lockstitch Relationship Specialty Start Date End Date Zari Henry MD [address] [place] [address] PCP - General Internal Medicine 08/17/21 Delmis Tran MD [address] [place] [address] Specialist Cardiology 04/10/23 05/04/23 Xuan Brantley MD [address] [place] [address] Specialist Cardiology 05/05/23 documented as of this encounter
--- OUTSIDE RECORDS SUMMARY | 2025-07-01 08:01 | XMS_ITS | Encounter Summary ---
Author Organization [facility] Address [address] [place] [address] Care Team Providers Care Product Management Intern Name Role Phone Mckenna Jones MD Primary Care Provider Unavail able Zari Henry MD Primary Care Provider [phone] Delmis Tran MD Unavailable [phone] Xuan Brantley MD Unavailable [phone] Encounter Details Date Type Department Care Team Description 08/15/2019 [facility] Medical Records [address] [place] [address] Abstract, Provider Social History Tobacco Use Types [...] documented as of this encounter Care Teams Product Management Intern Relationship Specialty Start Date End Date Mckenna Jones MD PCP - General Internal Medicine 05/17/19 08/16/21 Zari Henry MD [address] [place] [address] [phone] PCP - General Internal Medicine 08/17/21 Delmis Tran MD [address] [place] [address] [phone] Specialist Cardiology 04/10/23 05/04/23 Xuan Brantley MD [address] [place] [address] Specialist Cardiology 05/05/23 documented as of this encounter
--- OUTSIDE RECORDS SUMMARY | 2025-07-01 08:01 | XMS_ITS | Encounter Summary ---
Author Organization [facility] Address [address] [place] [address] Care Team Providers Care Pulp Machine Operator Name Role Phone Zari Henry MD Primary Care Provider [phone] Xuan Brantley MD Unavailable [phone] Reason for Visit * Reason Onset Date Comments Faxed Order 06/01/2023 Deanna [facility] [id number] Encounter Details Date Type Department Care Team Description 06/01/2023 Telephone Adult Medicine [facility] [address] [place] [address] [phone] Zari Henry MD [address] [place] [address] [phone] Faxed Order (Deanna GORDON [id number]/) Social History Tobacco Use Types Packs/Day Years [...] suspected to have Coronavirus/COVID-19? No / Unsure 06/01/2023 11:06 AM EDT documented as of this encounter Plan of Treatment Not on file documented as of this encounter Visit Diagnoses Not on filedocumented in this encounter Additional Health Concerns Infection Onset Date Last Indicated Resolved Time COVID-19 12/20/2023 12/21/2023 documented as of this encounter Care Teams Pulp Machine Operator Relationship Specialty Start Date End Date Zari Henry MD [address] [place] [address] PCP - General Internal Medicine 08/17/21 Xuan Brantley MD [address] [place] [address] Specialist Cardiology 05/05/23 documented as of this encounter
--- OUTSIDE RECORDS SUMMARY | 2025-07-01 08:01 | XMS_ITS | Encounter Summary ---
Author Organization [facility] Address [address] [place] [address] Care Team Providers Care Food Service Representative Name Role Phone Zari Henry MD Primary Care Provider [phone] Delmis Tran MD Unavailable [phone] Xuan Brantley MD Unavailable [phone] Reason for Referral * Non DIONNA (Routine) - Authorized/Booked Specialty Diagnoses / Procedures Referred By Semaj oakes Referred To Contact Nephrology Procedures REFERRAL TO NEPHROLOGY Cassandra Alba PA-C [address] [place] [address] [facility]/[address] Referral ID Status Reason Start Date Expiration Date V isits Requested Visits Authorized [id number] Authorized/ Booked 01/06/2022 01/06/2023 1 1 * EXTERNAL (Routine) - Authorized/Booked Specialty Diagnoses / Procedures Referred By Semaj oakes Referred To Contact Oncology/Hematology Procedures REFERRAL TO ONCOLOGY/HEMATOLOGY (IN NETWORK) Cassandra Alba PA-C [address] [place] [address] [facility] [address] [place] [phone] Referral ID Status Reason Start Date Expiration Date V isits Requested Visits Authorized [id number] Authorized/B ooked 01/06/2022 01/06/2023 1 1 Encounter Details Date Type Department Care Team Description 01/06/2022 Telephone Adult Medicine [address] [address] Cassandra Alba PA-C Social History Tobacco Use Types Packs/Day [...] have Coronavirus / COVID-19? No / Unsure 12/23/2021 9:53 AM EST documented as of this encounter Miscellaneous Notes * Telephone Encounter - Lainey Rodriguez M.A. - 01/06/2022 4:28 PM EST Spoke with patient he is aware. * Telephone Encounter - Tony Doran - 01/06/2022 4:12 PM EST Patient returning call please contact at [phone] * Telephone Encounter - Lainey Rodriguez M.A. - 01/06/2022 9:44 AM EST Left message for patient to return call. * Telephone Encounter - Cassandra Alba PA-C - 01/06/2022 7:36 AM EST Please call the patient. His kidney function continues to be diminished likely related to his uncontrolled diabetes. I am referring him to endocrinology. His Triglycerides are elevated. He needs to decrease the carbohydrates especially sugar in his diet along with processed foods and unhealthy fats. His blood counts remain abnormal and he is overdue for follow up with hematology. I am sending himback to hematology. He needs to follow up as scheduled with endocrinoogy. Thank you Cassandra Alba PA-C documented in this encounter Plan of Treatment Not on file documented as of this encounter Visit Diagnoses Not on filedocumented in this encounter Additional Health Concerns Infection Onset Date Last Indicated Resolved Time COVID-19 12/20/2023 12/21/2023 documented as of this encounter Care Teams Food Service Representative Relationship Specialty Start Date End Date Zari Henry MD [address] [place] [address] PCP - General Internal Medicine 08/17/21 Delmis Tran MD [address] [place] [address] Specialist Cardiology 04/10/23 05/04/23 Xuan Brantley MD [address] [place] [address] Specialist Cardiology 05/05/23 documented as of this encounter
--- OUTSIDE RECORDS SUMMARY | 2025-07-01 08:01 | XMS_ITS | Encounter Summary ---
Author Organization [facility] Address [address] [place] [address] Care Team Providers Care Dough Catcher Name Role Phone Mckenna Jones MD Primary Care Provider Unavail able Zari Henry MD Primary Care Provider Delmis Tran MD Unavailable [phone] Xuan Brantley MD Unavailable [phone] Encounter Details Date Type Department Care Team Description 06/08/2019 Release of Information Medical Records [address] [place] [address] Abstract, Provider Social History Tobacco Use Types [...] documented as of this encounter Care Teams Dough Catcher Relationship Specialty Start Date End Date Mckenna Jones MD PCP - General Internal Medicine 05/17/19 08/16/21 Zari Henry MD [address] [place] [address] PCP - General Internal Medicine 08/17/21 Delmis Tran MD [address] [place] [address] [phone] Specialist Cardiology 04/10/23 05/04/23 Xuan Brantley MD [address] [place] [address] Specialist Cardiology 05/05/23 documented as of this encounter
--- OUTSIDE RECORDS SUMMARY | 2025-07-01 08:01 | XMS_ITS | Encounter Summary ---
Author Organization [facility] Address [address] [place] [address] Care Team Providers Care Director Of Recruitment Name Role Phone Zari Henry MD Primary Care Provider [phone] Delmis Tran MD Unavailable [phone] Xuan Brantley MD Unavailable [phone] Encounter Details Date Type Department Care Team Description 04/10/2023 Hospital Medical Records [address] [place] [address] 37768 Social History Tobacco Use Types Packs/Day Years [...] suspected to have Coronavirus/COVID-19? No / Unsure 04/10/2023 3:05 PM EDT documented as of this encounter Plan of Treatment Not on file documented as of this encounter Procedures Procedure Name Priority Date/Time Associated Diagnosis Comments OUTSIDE LAB Routine 04/12/2023 OUTSIDE VASCULAR STUDY Routine 04/10/2023 OUTSIDE EKG Routine 04/10/2023 OUTSIDE ECHO Routine 04/10/2023 OUTSIDE ULTRASOUND Routine 04/10/2023 OUTSIDE PLAIN FILM Routine 04/10/2023 documented in this encounter Results * OUTSIDE LAB (04/12/2023) Provider Abstract LAB * OUTSIDE PLAIN FILM (04/10/2023) Provider Abstract RADIOLOGY * OUTSIDE ULTRASOUND (04/10/2023) Provider Abstract RADIOLOGY * OUTSIDE ECHO (04/10/2023) Provider Abstract CARDIOLOGY * OUTSIDE VASCULAR STUDY (04/10/2023) Provider Abstract CARDIOLOGY * OUTSIDE EKG (04/10/2023) Provider Abstract CARDIOLOGY documented in this encounter Visit Diagnoses Not on filedocumented in this encounter Additional Health Concerns Infection Onset Date Last Indicated Resolved Time COVID-19 12/20/2023 12/21/2023 documented as of this encounter Care Teams Director Of Recruitment Relationship Specialty Start Date End Date Zari Henry MD [address] [place] [address]608 PCP - General Internal Medicine 08/17/21 Delmis Tran MD [address] [place] [address] 10956 Specialist Cardiology 04/10/23 05/04/23 Xuan Brantley MD [address] [place] [address] 73702 Specialist Cardiology 05/05/23 documented as of this encounter
--- OUTSIDE RECORDS SUMMARY | 2025-07-01 08:01 | XMS_ITS | Encounter Summary ---
Author Organization [facility] Address [address] [place] [address] Care Team Providers Care Senior Specialist Name Role Phone Zari Henry MD Primary Care Provider [phone] Delmis Tran MD Unavailable [phone] Xuan Brantley MD Unavailable [phone] Encounter Details Date Type Department Care Team Description 03/15/2022 Clean Room Technician Report Medical Records [address] [place] [address] Moe Fernandes MD Social History Tobacco Use Types Packs/Day [...] suspected to have Coronavirus/COVID-19? No / Unsure 02/21/2022 3:09 PM EDT documented as of this encounter Plan of Treatment Not on file documented as of this encounter Visit Diagnoses Not on filedocumented in this encounter Additional Health Concerns Infection Onset Date Last Indicated Resolved Time COVID-19 12/20/2023 12/21/2023 documented as of this encounter Care Teams Senior Specialist Relationship Specialty Start Date End Date Zari Henry MD [address] [place] [address] 30149 PCP - General Internal Medicine 08/17/21 Delmis Tran MD [address] [place] [address] 65498 Specialist Cardiology 04/10/23 05/04/23 Xuan Brantley MD [address] [place] [address] 83517 Specialist Cardiology 05/05/23 documented as of this encounter
--- OUTSIDE RECORDS SUMMARY | 2025-07-01 08:01 | XMS_ITS | Encounter Summary ---
Author Organization [facility] Address [address] [place] [address] Care Team Providers Care Writer Editor Name Role Phone Zari Henry MD Primary Care Provider [phone] Delmis Tran MD Unavailable [phone] Xuan Brantley MD Unavailable [phone] Encounter Details Date Type Department Care Team Description 04/21/2023 SCAN Cardio P[facility] [address] [facility] [address] [place] [address] Abstract, Provider Social History Tobacco Use Types [...] documented as of this encounter Care Teams Writer Editor Relationship Specialty Start Date End Date Zari Henry MD [address] [place] [address] PCP - General Internal Medicine 08/17/21 Delmis Tran MD [address] [place] [address] 21283 Specialist Cardiology 04/10/23 05/04/23 Xuan Brantley MD [address] [place] [address] 18179 Specialist Cardiology 05/05/23 documented as of this encounter
--- OUTSIDE RECORDS SUMMARY | 2025-07-01 08:01 | XMS_ITS | Encounter Summary ---
Author Organization [facility] Address [address] [place] [address] Care Team Providers Care Stage Hand Name Role Phone Zari Henry MD Primary Care Provider [phone] Xuan Brantley MD Unavailable [phone] Encounter Details Date Type Department Care Team Description 08/02/2023 Orders Only Medical Records [address] [place] [address] Abstract, Provider Social History Tobacco Use Types [...] Name Priority Date/Time Associated Diagnosis Comments OUTSIDE PATHOLOGY Routine 07/27/2023 documented in this encounter Results * OUTSIDE PATHOLOGY (07/27/2023) Provider Abstract OUTSIDE LAB documented in this encounter Visit Diagnoses Not on filedocumented in this encounter Additional Health Concerns Infection Onset Date Last Indicated Resolved Time COVID-19 12/20/2023 12/21/2023 documented as of this encounter Care Teams Stage Hand Relationship Specialty Start Date End Date Zari Henry MD [address] [place] [address] PCP - General Internal Medicine 08/17/21 Xuan Brantley MD [address] [place] [address] 26570 Specialist Cardiology 05/05/23 documented as of this encounter
--- OUTSIDE RECORDS SUMMARY | 2025-07-01 08:01 | XMS_ITS | Encounter Summary ---
Author Organization [facility] Address [address] [place] [address] Care Team Providers Care Pharmacist Name Role Phone Mckenna Jones MD Primary Care Provider Unavail able Zari Henry MD Primary Care Provider Delmis Tran MD Unavailable [phone] Xuan Brantley MD Unavailable [phone] Encounter Details Date Type Department Care Team Description 02/06/2020 Process Coordinator Report Medical Records [address] [place] [address]98 Eriberto Dominguez MD Social History Tobacco Use [...] documented as of this encounter Care Teams Pharmacist Relationship Specialty Start Date End Date Mckenna Jones MD PCP - General Internal Medicine 05/17/19 08/16/21 Zari Henry MD [address] [place] [address] 98773 PCP - General Internal Medicine 08/17/21 Delmis Tran MD [address] [place] [address] [phone] Specialist Cardiology 04/10/23 05/04/23 Xuan Brantley MD [address] [place] [address] 01995 Specialist Cardiology 05/05/23 documented as of this encounter
--- OUTSIDE RECORDS SUMMARY | 2025-07-01 08:01 | XMS_ITS | Encounter Summary ---
Author Organization [facility] Address [address] [place] [address] Care Team Providers Care An/Sqq 89(V)15 Sonar System Journeyman Name Role Phone Zari Roque MD Primary Care Provider [phone] Xuan Brantley MD Unavailable [phone] Reason for Visit * Reason Onset Date Comments medication problems 05/16/2023 Encounter Details Date Type Department Care Team Description 05/16/2023 Telephone Endocrinology - [address] [address] Lea Alex PA-C [address] [place] [address] 14037 medication problems Social History Tobacco Use Types Packs/Day Years [...] Miscellaneous Notes * Telephone Encounter - Debbie Caro - 05/19/2023 8:45 AM EDT Patient is returning Yuri's phone call * Telephone Encounter - Lea Alex PA-C - 05/18/2023 5:56 PM EDT Please call patient for clarification. He is using insulin pump right now. * Telephone Encounter - Debbie Caro - 05/17/2023 3:37 PM EDT Felipe the patient VNA nurse is calling stating the patient needs Insulin Syringes. He only has 4 left to use. Patient has have enough insulin. Please fax to [facility] on [facility] * Telephone Encounter - Debbie Elizalde M.A. - 05/16/2023 11:25 AM EDT Spoke to patient. These are the pods from his record. He is is going to check to see if he can findan old box of his other pods. * Telephone Encounter - Debbie Caro - 05/16/2023 11:14 AM EDT What is the name of the medication patient is having a problem with?: Insulin Disposable Pump (Omnipod DASH Pods, Gen 4,) Misc What is the problem?: patient states this is the wrong omnipod. He does not use the DASH. It won't work with the machine Is the patient calling about the problem? YES Is this a NEW medication?: NO How long has the patient been taking this medication? About 2 years Who prescribed this medication for the patient? Lea Alex Who is patients PCP?: Zari roque Payor: [facility] / Plan: [facility] / Product Type: MEDICAID RISK documented in this encounter Plan of Treatment Not on file documented as of this encounter Visit Diagnoses Not on filedocumented in this encounter Additional Health Concerns Infection Onset Date Last Indicated Resolved Time COVID-19 12/20/2023 12/21/2023 documented as of this encounter Care Teams An/Sqq 89(V)15 Sonar System Journeyman Relationship Specialty Start Date End Date Zari Roque MD [address] [place] [address] PCP - General Internal Medicine 08/17/21 Xuan Brantley MD [address] [place] [address] 33035 Specialist Cardiology 05/05/23 documented as of this encounter
--- OUTSIDE RECORDS SUMMARY | 2025-07-01 08:01 | XMS_ITS | Encounter Summary ---
Author [facility] Address [address] [place] [address] Care Team Providers Care Clinical Exercise Specialist Name Role Phone Elliot Garcia MD Primary Care Provider Mckenna Jones MD Primary Care Provider Unavail able Zari Henry MD Primary Care Provider [phone] Delmis Tran MD Unavailable [phone] Xuan Brantley MD Unavailable [phone] Encounter Details Date Type Department Care Team Description 03/01/2019 Irrigator Gravity Flow Report Medical Records [address] [place] [address] [address] Social History Tobacco Use Types Packs/Day Years [...] documented as of this encounter Care Teams Clinical Exercise Specialist Relationship Specialty Start Date End Date Elliot Garcia MD [address] [place] [address] 39870 PCP - General Internal Medicine 01/19/17 05/16/19 Mckenna Jones MD [address] [place] [address] 77326 PCP - General Internal Medicine 05/17/19 08/16/21 Zari Henry MD [address] [place] [address] 80810 PCP - General Internal Medicine 08/17/21 Delmis Tran MD [address] [place] [address] 88751 Specialist Cardiology 04/10/23 05/04/23 Xuan Brantley MD [address] [place] [address] 80977 Specialist Cardiology 05/05/23 documented as of this encounter
--- OUTSIDE RECORDS SUMMARY | 2025-07-01 08:01 | XMS_ITS | Encounter Summary ---
Author Organization [facility] Address [address] [place] [address] Care Team Providers Care Broom Handle Dipper Name Role Phone Zari Henry MD Primary Care Provider [phone] Encounter Details Date Type Department Care Team (Late st Contact Info) Description 01/09/2025 Billing Patient Not Present Adult Medicine [facility] [address] [place], [place] [phone] Zari Henry MD [address] [place], [place] Social History Tobacco Use Types Packs/Day [...] 1:30 PM EDT Consult Orthopedic Surgery - [place] [address] [place] [phone] Rivas Norman DPM [address] [place] [address] 08/25/2025 2:30 PM EDT Office Visit Adult Medicine [facility] [address] [place], [place] [phone] Nadege Begum PA [address] [place], [place] 09/08/2025 2:15 PM EST [facility] [address] [place] [phone] Nisa Machado MD [address] [place] [address] documented as of this encounter Visit Diagnoses Not on filedocumented in this encounter Care Teams Broom Handle Dipper Relationship Specialty Start Date End Date Zari Henry MD [address] [place] [address] PCP - General Internal Medicine 08/17/21 documented as of this encounter
--- OUTSIDE RECORDS SUMMARY | 2025-07-01 08:01 | XMS_ITS | Encounter Summary ---
Author Organization [facility] Address [address] [place] [address] Care Team Providers Care Head Of Insight Name Role Phone Zari Henry MD Primary Care Provider [phone] Delmis Tran MD Unavailable [phone] Xuan Brantley MD Unavailable [phone] Encounter Details Date Type Department Care Team Description 04/12/2023 [facility] Medical Records [address] [place] [address] Social History Tobacco Use Types Packs/Day Years [...] documented as of this encounter Care Teams Head Of Insight Relationship Specialty Start Date End Date Zari Henry MD [address] [place] [address] 48809 PCP - General Internal Medicine 08/17/21 Delmis Tran MD [address] [place] [address] 83351 Specialist Cardiology 04/10/23 05/04/23 Xuan Brantley MD [address] [place] [address] 96365 Specialist Cardiology 05/05/23 documented as of this encounter
--- OUTSIDE RECORDS SUMMARY | 2025-07-01 08:01 | XMS_ITS | Encounter Summary ---
Author Organization [facility] Address [address] [place] [address] Care Team Providers Care Field Traffic Investigator Name Role Phone Elliot Garcia MD Primary Care Provider Mckenna Jones MD Primary Care Provider Unavail able Zari Henry MD Primary Care Provider [phone] Delmis Tran MD Unavailable [phone] Xuan Brantley MD Unavailable [phone] Encounter Details Date Type Department Care Team Description 02/05/2019 Hospital Medical Records [address] [place] [address] [facility] Social History Tobacco Use Types Packs/Day Years [...] documented as of this encounter Care Teams Field Traffic Investigator Relationship Specialty Start Date End Date Elliot Garcia MD [address] [place] [address]121 PCP - General Internal Medicine 01/19/17 05/16/19 Mckenna Jones MD [address] [place] [address] 73347 PCP - General Internal Medicine 05/17/19 08/16/21 Zari Henry MD [address] [place] [address] 52710 PCP - General Internal Medicine 08/17/21 Delmis Tran MD [address] [place] [address] 57727 Specialist Cardiology 04/10/23 05/04/23 Xuan Brantley MD [address] [place] [address] 57885 Specialist Cardiology 05/05/23 documented as of this encounter
--- OUTSIDE RECORDS SUMMARY | 2025-07-01 08:01 | XMS_ITS | Encounter Summary ---
Author Organization [facility] Address [address] [place] [address] Care Team Providers Care Banding Machine Operator Name Role Phone Zari Henry MD Primary Care Provider [phone] Delmis Tran MD Unavailable [phone] Xuan Brantley MD Unavailable [phone] Encounter Details Date Type Department Care Team Description 04/20/2023 Home Health Certification Medical Records [address] [place] [address] [facility], [address] [phone] Social History Tobacco Use Types Packs/Day Years [...] documented as of this encounter Care Teams Banding Machine Operator Relationship Specialty Start Date End Date Zari Henry MD [address] [place] [address] 25392 PCP - General Internal Medicine 08/17/21 Delmis Tran MD [address] [place] [address] 26775 Specialist Cardiology 04/10/23 05/04/23 Xuan Brantley MD [address] [place] [address] 93501 Specialist Cardiology 05/05/23 documented as of this encounter
--- OUTSIDE RECORDS SUMMARY | 2025-07-01 08:02 | XMS_ITS | Encounter Summary ---
[facility] Address [address] [place] [address] Care Team Providers Care Travel Assistant Name Role Phone Zari Henry MD Primary Care Provider Xuan Brantley MD Unavailable [phone] Reason for Visit * Reason Onset Date Comments Letter 11/16/2023 Encounter Details Date Type Department Care Team Description 11/16/2023 Telephone Pulmonology - [place] [address] [facility] [address] [place] [address] Nisa Machado MD [address] [place] [address] Letter Social History Tobacco Use Types Packs/Day Years [...] Telephone Encounter - Elier Camilo CMA - 11/16/2023 3:04 PM EST Please review and advise. GABRIELLE 06/01/23 * Telephone Encounter - Vickie Argueta - 11/16/2023 2:57 PM EST Patient calling looking for a letter for housing indicating the need for a first floor and to have washer and dryer inside apartment due to he not be able to walk long distances due to his heart failure and his breathing. Please advice and call patient if this can be done. documented in this encounter Plan of Treatment Not on file documented as of this encounter Visit Diagnoses Not on filedocumented in this encounter Additional Health Concerns Infection Onset Date Last Indicated Resolved Time COVID-19 12/20/2023 12/21/2023 documented as of this encounter Care Teams Travel Assistant Relationship Specialty Start Date End Date Zari Henry MD [address] [place] [address] 10536 PCP - General Internal Medicine 08/17/21 Xuan Brantley MD [address] [place] [address] 67318 Specialist Cardiology 05/05/23 documented as of this encounter
--- OUTSIDE RECORDS SUMMARY | 2025-07-01 08:02 | XMS_ITS | Encounter Summary ---
Author Organization [facility] Address [address] [place] [address] Care Team Providers Care Tubing Mill Operator Name Role Phone Zari Henry MD Primary Care Provider [phone] Delmis Tran MD Unavailable [phone] Xuan Brantley MD Unavailable [phone] Encounter Details Date Type Department Care Team Description 08/25/2022 Home Health Certification Medical Records [address] [place] [address] [facility], [address] [phone] Social History Tobacco Use Types Packs/Day Years [...] suspected to have Coronavirus/COVID-19? No / Unsure 08/25/2022 3:27 PM EDT documented as of this encounter Plan of Treatment Not on file documented as of this encounter Visit Diagnoses Not on filedocumented in this encounter Additional Health Concerns Infection Onset Date Last Indicated Resolved Time COVID-19 12/20/2023 12/21/2023 documented as of this encounter Care Teams Tubing Mill Operator Relationship Specialty Start Date End Date Zari Henry MD [address] [place] [address] PCP - General Internal Medicine 08/17/21 Delmis Tran MD [address] [place] [address] 46909 Specialist Cardiology 04/10/23 05/04/23 Xuan Brantley MD [address] [place] [address] 74612 Specialist Cardiology 05/05/23 documented as of this encounter
--- OUTSIDE RECORDS SUMMARY | 2025-07-01 08:02 | XMS_ITS | Encounter Summary ---
Author Organization [facility] Address [address] [place] [address] Care Team Providers Care Florist'S Decorator Name Role Phone Zari Henry MD Primary Care Provider [phone] Xuan Brantley MD Unavailable [phone] Reason for Visit * Reason Onset Date Comments Blood Sugar Elevated 02/14/2024 Encounter Details Date Type Department Care Team Description 02/14/2024 Telephone Endocrinology - [address] [address] Lea Alex PA-C [address] [place] [address] Blood Sugar Elevated Social History Tobacco Use Types Packs/Day Years [...] encounter Miscellaneous Notes * Telephone Encounter - Wendi Rebolledo - 02/14/2024 11:35 AM EDT Caller requesting call back from provider: Is the caller the patient? YES If caller is not the patient, what is the callers name? N/A Callers relationship to patient? N/A If person calling is not the patient themselves, is there a verbal release in FYI or permanent comments for this person: NO Reason for call back: Patient says that his blood sugar will not go below 300. He is feeling very tired. Blood sugar this morning was 347, he took his insulin and took a nap. Woke up recently and blood sugar still wont go down it is at 300. Caller offered to speak with the nurse [...] documented as of this encounter Care Teams Florist'S Decorator Relationship Specialty Start Date End Date Zari Henry MD [address] [place] [address] 38927 PCP - General Internal Medicine 08/17/21 Xuan Brantley MD [address] [place] [address] 88199 Specialist Cardiology 05/05/23 documented as of this encounter
--- OUTSIDE RECORDS SUMMARY | 2025-07-01 08:02 | XMS_ITS | Encounter Summary ---
Author Organization [employer] [facility] Address [address] [place] [address] Care Team Providers Care Clipper Machine Operator Name Role Phone Zari Henry MD Primary Care Provider [phone] Xuan Brantley MD Unavailable [phone] Encounter Details Date Type Department Care Team Description 11/27/2023 Hospital Medical Records [address] [place] [address] Unique Rey NP Social History Tobacco Use Types Packs/Day Years [...] documented as of this encounter Care Teams Clipper Machine Operator Relationship Specialty Start Date End Date Zari Henry MD [address] [place] [address]07 PCP - General Internal Medicine 08/17/21 Xuan Brantley MD [address] [place] [address] 71370 Specialist Cardiology 05/05/23 documented as of this encounter
--- OUTSIDE RECORDS SUMMARY | 2025-07-01 08:02 | XMS_ITS | Encounter Summary ---
Author Organization [facility] Address [address] [place] [address] Care Team Providers Care Manager Implementation Name Role Phone Zari Henry MD Primary Care Provider [phone] Delmis Tran MD Unavailable [phone] Xuan Brantley MD Unavailable [phone] Reason for Visit * Reason Onset Date Comments Faxed Order 08/30/2022 Tracking #[id number] Encounter Details Date Type Department Care Team Description 08/30/2022 Telephone Adult Medicine [facility] [address] [place] [address] [phone] Zari Henry MD [address] [place] [address] [phone] Faxed Order (Tracking #[id number]) Social History Tobacco Use Types Packs/Day Years [...] encounter Miscellaneous Notes * Telephone Encounter - Barbara Cervantes - 08/30/2022 10:06 AM EDT Faxed order from Deanna GORDON, Tracking #[id number]. Please sign, date, and fax back. documented in this encounter Plan of Treatment Not on file documented as of this encounter Visit Diagnoses Not on filedocumented in this encounter Additional Health Concerns Infection Onset Date Last Indicated Resolved Time COVID-19 12/20/2023 12/21/2023 documented as of this encounter Care Teams Manager Implementation Relationship Specialty Start Date End Date Zari Henry MD [address] [place] [address] PCP - General Internal Medicine 08/17/21 Delmis Tran MD [address] [place] [address] 94609 Specialist Cardiology 04/10/23 05/04/23 Xuan Brantley MD [address] [place] [address] 55028 Specialist Cardiology 05/05/23 documented as of this encounter
--- OUTSIDE RECORDS SUMMARY | 2025-07-01 08:02 | XMS_ITS | Encounter Summary ---
[facility] Organization [facility] Address [address] [place] [address] Care Team Providers Care Concrete Conveyor Operator Name Role Phone Zari Henry MD Primary Care Provider [phone] Delmis Tran MD Unavailable [phone] Xuan Brantley MD Unavailable [phone] Reason for Visit * Reason Onset Date Comments Faxed Order 08/31/2022 Tracking #[id number] Encounter Details Date Type Department Care Team Description 08/31/2022 Telephone Adult Medicine [facility] [address] [place] [address] [phone] Zari Henry MD [address] [place] [address] [phone] Faxed Order (Tracking #[id number]) Social History Tobacco Use Types Packs/Day Years [...] * Telephone Encounter - Barbara Cervantes - 08/31/2022 1:38 PM EDT Faxed order from Deanna GORDON, Tracking #[id number]. Please sign, date, and fax back. documented in this encounter Plan of Treatment Not on file documented as of this encounter Visit Diagnoses Not on filedocumented in this encounter Additional Health Concerns Infection Onset Date Last Indicated Resolved Time COVID-19 12/20/2023 12/21/2023 documented as of this encounter Care Teams Concrete Conveyor Operator Relationship Specialty Start Date End Date Zari Henry MD [address] [place] [address] 10686 PCP - General Internal Medicine 08/17/21 Delmis Tran MD [address] [place] [address] 83030 Specialist Cardiology 04/10/23 05/04/23 Xuan Brantley MD [address] [place] [address] 77378 Specialist Cardiology 05/05/23 documented as of this encounter
--- OUTSIDE RECORDS SUMMARY | 2025-07-01 08:02 | XMS_ITS | Encounter Summary ---
Author Organization [facility] Address [address] [place] [address] Care Team Providers Care Component Technician Name Role Phone Zari Henry MD Primary Care Provider [phone] Delmis Tran MD Unavailable [phone] Xuan Brantley MD Unavailable [phone] Encounter Details Date Type Department Care Team Description 09/07/2022 Hospital Medical Records [address] [place] [address] 22664 Garret Cifuentes Social History Tobacco Use Types Packs/Day Years [...] documented as of this encounter Care Teams Component Technician Relationship Specialty Start Date End Date Zari Henry MD [address] [place] [address] 00346 PCP - General Internal Medicine 08/17/21 Delmis Tran MD [address] [place] [address] 92027 Specialist Cardiology 04/10/23 05/04/23 Xuan Brantley MD [address] [place] [address] 30636 Specialist Cardiology 05/05/23 documented as of this encounter
--- OUTSIDE RECORDS SUMMARY | 2025-07-01 08:02 | XMS_ITS | Encounter Summary ---
Author Organization [facility] [employer] [facility] Address [address] [place] [address] Care Team Providers Care Vehicle Modification Technician Name Role Phone Zari Henry MD Primary Care Provider [phone] Delmis Tran MD Unavailable [phone] Xuan Brantley MD Unavailable [phone] Encounter Details Date Type Department Care Team Description 11/05/2022 Hospital Medical Records [address] [place] [address] 47537 Unique Rey NP Social History Tobacco Use [...] documented as of this encounter Care Teams Vehicle Modification Technician Relationship Specialty Start Date End Date Zari Henry MD [address] [place] [address] [phone] PCP - General Internal Medicine 08/17/21 Delmis Tran MD [address] [place] [address] Specialist Cardiology 04/10/23 05/04/23 Xuan Brantley MD [address] [place] [address] 27928 Specialist Cardiology 05/05/23 documented as of this encounter
--- OUTSIDE RECORDS SUMMARY | 2025-07-01 08:02 | XMS_ITS | Encounter Summary ---
Author Organization [employer] [facility] Address [address] [place] [address] Care Team Providers Care Design Engineer Name Role Phone Zari Henry MD Primary Care Provider [phone] Xuan Brantley MD Unavailable [phone] Encounter Details Date Type Department Care Team Description 05/20/2024 Hospital Medical Records [address] [place] [address] Trent Cisneros DO [address] [facility] [address] [facility] [place] [address] Social History Tobacco Use Types Packs/Day Years [...] documented as of this encounter Care Teams Design Engineer Relationship Specialty Start Date End Date Zari Henry MD [address] [place] [address] 84335 PCP - General Internal Medicine 08/17/21 Xuan Brantley MD [address] [place] [address] 79884 Specialist Cardiology 05/05/23 documented as of this encounter
--- OUTSIDE RECORDS SUMMARY | 2025-07-01 08:02 | XMS_ITS | Encounter Summary ---
Author Organization [facility] Address [address] [place] [address] Care Team Providers Care Lead Cashier Name Role Phone Zari Henry MD Primary Care Provider [phone] Delmis Tran MD Unavailable [phone] Xuan Brantley MD Unavailable [phone] Encounter Details Date Type Department Care Team Description 10/06/2022 Perianesthesia Manager Report Medical Records [address] [place] [address] 12925 Alissa Wiggins FNP Social History Tobacco Use Types Packs/Day Years [...] suspected to have Coronavirus/COVID-19? No / Unsure 09/21/2022 1:10 PM EST documented as of this encounter Plan of Treatment Not on file documented as of this encounter Visit Diagnoses Not on filedocumented in this encounter Additional Health Concerns Infection Onset Date Last Indicated Resolved Time COVID-19 12/20/2023 12/21/2023 documented as of this encounter Care Teams Lead Cashier Relationship Specialty Start Date End Date Zari Henry MD [address] [place] [address] 42826 PCP - General Internal Medicine 08/17/21 Delmis Tran MD [address] [place] [address] 77880 Specialist Cardiology 04/10/23 05/04/23 Xuan Brantley MD [address] [place] [address] 03225 Specialist Cardiology 05/05/23 documented as of this encounter
--- OUTSIDE RECORDS SUMMARY | 2025-07-01 08:02 | XMS_ITS | Encounter Summary ---
Author Organization [employer] [facility] Address [address] [place] [address] Care Team Providers Care Clean Up Person Name Role Phone Zari Henry MD Primary Care Provider [phone] Delmis Tran MD Unavailable [phone] Xuan Brantley MD Unavailable [phone] Encounter Details Date Type Department Care Team Description 08/12/2022 Hospital Medical Records [address] [place] [address] 43694 Veronica Sinclair Social History Tobacco Use Types Packs/Day Years [...] documented as of this encounter Care Teams Clean Up Person Relationship Specialty Start Date End Date Zari Henry MD [address] [place] [address] 01020 PCP - General Internal Medicine 08/17/21 Delmis Tran MD [address] [place] [address] Specialist Cardiology 04/10/23 05/04/23 Xuan Brantley MD [address] [place] [address] 10448 Specialist Cardiology 05/05/23 documented as of this encounter
--- OUTSIDE RECORDS SUMMARY | 2025-07-01 08:02 | XMS_ITS | Encounter Summary ---
Author Organization [facility] Address [address] [place] [address] Care Team Providers Care Job Checker Name Role Phone Zari Henry MD Primary Care Provider [phone] Delmis Tran MD Unavailable [phone] Xuan Brantley MD Unavailable [phone] Encounter Details Date Type Department Care Team Description 10/19/2022 Metallographer Report Medical Records [address] [place] [address] 41145 Moe Fernandes MD Social History Tobacco Use [...] documented as of this encounter Care Teams Job Checker Relationship Specialty Start Date End Date Zari Henry MD [address] [place] [address] 14209 PCP - General Internal Medicine 08/17/21 Delmis Tran MD [address] [place] [address] 95093 Specialist Cardiology 04/10/23 05/04/23 Xuan Brantley MD [address] [place] [address] 65647 Specialist Cardiology 05/05/23 documented as of this encounter
--- OUTSIDE RECORDS SUMMARY | 2025-07-01 08:02 | XMS_ITS | Encounter Summary ---
[facility] Address [address] [place] [address] Care Team Providers Care Spot Sprayer Name Role Phone Zari Henry MD Primary Care Provider [phone] Delmis Tran MD Unavailable [phone] Xuan Brantley MD Unavailable [phone] Encounter Details Date Type Department Care Team Description 04/11/2022 Hospital Medical Records [address] [place] [address] 9[address] Social History Tobacco Use Types Packs/Day Years [...] suspected to have Coronavirus/COVID-19? No / Unsure 04/14/2022 3:34 PM EDT documented as of this encounter Plan of Treatment Not on file documented as of this encounter Visit Diagnoses Not on filedocumented in this encounter Additional Health Concerns Infection Onset Date Last Indicated Resolved Time COVID-19 12/20/2023 12/21/2023 documented as of this encounter Care Teams Spot Sprayer Relationship Specialty Start Date End Date Zari Henry MD [address] [place] [address] 84749 PCP - General Internal Medicine 08/17/21 Delmis Tran MD [address] [place] [address] 61640 Specialist Cardiology 04/10/23 05/04/23 Xuan Brantley MD [address] [place] [address] 48131 Specialist Cardiology 05/05/23 documented as of this encounter
--- OUTSIDE RECORDS SUMMARY | 2025-07-01 08:02 | XMS_ITS | Encounter Summary ---
Author Organization [facility] Address [address] [place] [address] Care Team Providers Care Interior Decorator Name Role Phone Zari Henry MD Primary Care Provider [phone] Delmis Tran MD Unavailable [phone] Xuan Brantley MD Unavailable [phone] Encounter Details Date Type Department Care Team Description 11/04/2022 Hospital Medical Records [address] [place] [address]40 Donaldo Armas MD Social History Tobacco Use Types Packs/Day [...] documented as of this encounter Care Teams Interior Decorator Relationship Specialty Start Date End Date Zari Henry MD [address] [place] [address] 01020 PCP - General Internal Medicine 08/17/21 Delmis Tran MD [address] [place] [address] Specialist Cardiology 04/10/23 05/04/23 Xuan Brantley MD [address] [place] [address] 86884 Specialist Cardiology 05/05/23 documented as of this encounter
--- OUTSIDE RECORDS SUMMARY | 2025-07-01 08:02 | XMS_ITS | Encounter Summary ---
[facility] Address [address] [place] [address] Care Team Providers Care Mechanist Name Role Phone Mckenna Jones MD Primary Care Provider Unavail able Zari Henry MD Primary Care Provider Delmis Tran MD Unavailable [phone] Xuan Brantley MD Unavailable [phone] Encounter Details Date Type Department Care Team Description 07/30/2020 Orders Only Medical Records [address] [place] [address]30 Gustavo Rivas MD [address] [address] Social History Tobacco Use Types Packs/Day Years [...] have Coronavirus / COVID-19? No / Unsure 07/23/2020 1:31 PM EDT documented as of this encounter Plan of Treatment Not on file documented as of this encounter Procedures Procedure Name Priority Date/Time Associated Diagnosis Comments OUTSIDE VASCULAR STUDY Routine 07/28/2020 documented in this encounter Results * OUTSIDE VASCULAR STUDY (07/28/2020) Gustavo Rivas MD FACS CARDIOLOGY documented in this encounter Visit Diagnoses Not on filedocumented in this encounter Additional Health Concerns Infection Onset Date Last Indicated Resolved Time COVID-19 12/20/2023 12/21/2023 documented as of this encounter Care Teams Mechanist Relationship Specialty Start Date End Date Mckenna Jones MD PCP - General Internal Medicine 05/17/19 08/16/21 Zari Henry MD [address] [place] [address] 32053 PCP - General Internal Medicine 08/17/21 Delmis Tran MD [address] [place] [address] 79697 Specialist Cardiology 04/10/23 05/04/23 Xuan Brantley MD [address] [place] [address] 10987 Specialist Cardiology 05/05/23 documented as of this encounter
--- OUTSIDE RECORDS SUMMARY | 2025-07-01 08:02 | XMS_ITS | Encounter Summary ---
Author Organization [facility] Address [address] [place] [address] Care Team Providers Care Event Executive Name Role Phone Zari Henry MD Primary Care Provider [phone] Xuan Brantley MD Unavailable [phone] Encounter Details Date Type Department Care Team Description 08/31/2023 Solar Development Engineer Report Medical Records [address] [place] [address] Moe Fernandes MD Social History Tobacco Use [...] suspected to have Coronavirus/COVID-19? No / Unsure 08/23/2023 3:07 PM EDT documented as of this encounter Plan of Treatment Not on file documented as of this encounter Visit Diagnoses Not on filedocumented in this encounter Additional Health Concerns Infection Onset Date Last Indicated Resolved Time COVID-19 12/20/2023 12/21/2023 documented as of this encounter Care Teams Event Executive Relationship Specialty Start Date End Date Zari Henry MD [address] [place] [address] 32973 PCP - General Internal Medicine 08/17/21 Xuan Brantley MD [address] [place] [address] 16989 Specialist Cardiology 05/05/23 documented as of this encounter
--- OUTSIDE RECORDS SUMMARY | 2025-07-01 08:02 | XMS_ITS | Encounter Summary ---
Author Organization [facility] Address [address] [place] [address] Care Team Providers Care Online Trader Name Role Phone Zari Henry MD Primary Care Provider [phone] Delmis Tran MD Unavailable Xuan Brantley MD Unavailable [phone] Encounter Details Date Type Department Care Team Description 07/20/2022 Hospital Medical Records [address] [place] [address] 10448 Social History Tobacco Use Types Packs/Day Years [...] suspected to have Coronavirus/COVID-19? No / Unsure 06/27/2022 9:47 AM EDT documented as of this encounter Plan of Treatment Not on file documented as of this encounter Procedures Procedure Name Priority Date/Time Associated Diagnosis Comments OUTSIDE ECHO Routine 07/24/2022 OUTSIDE PLAIN FILM Routine 07/23/[address] Routine 07/20/2022 documented in this encounter Results * OUTSIDE ECHO (07/24/2022) Provider Abstract CARDIOLOGY * OUTSIDE PLAIN FILM (07/23/2022) Provider Abstract RADIOLOGY * OUTSIDE CT (07/20/2022) Provider Abstract RADIOLOGY documented in this encounter Visit Diagnoses Not on filedocumented in this encounter Additional Health Concerns Infection Onset Date Last Indicated Resolved Time COVID-19 12/20/2023 12/21/2023 documented as of this encounter Care Teams Online Trader Relationship Specialty Start Date End Date Zari Henry MD [address] [place] [address] 12660 PCP - General Internal Medicine 08/17/21 Delmis Tran MD [address] [place] [address] 53780 Specialist Cardiology 04/10/23 05/04/23 Xuan Brantley MD [address] [place] [address] 99901 Specialist Cardiology 05/05/23 documented as of this encounter
--- OUTSIDE RECORDS SUMMARY | 2025-07-01 08:02 | XMS_ITS | Encounter Summary ---
Author Organization [facility] Address [address] [place] [address] Care Team Providers Care Preparation Department Supervisor Name Role Phone Zari Henry MD Primary Care Provider [phone] Xuan Brantley MD Unavailable [phone] Reason for Visit * Reason Comments E-prescribe Rx Request Encounter Details Date Type Department Care Team Description 09/03/2023 Refill Pulmonology - [place] [address] [facility] [address] [place] [address] Nisa Machado MD [address] [place] [address] E-prescribe Rx Request Social History [...] encounter Miscellaneous Notes * Telephone Encounter - Vickie Ninoez - 09/05/2023 8:29 AM EST GABRIELLE 06/01/23 NOV 11/24/23 documented in this encounter Plan of Treatment Not on file documented as of this encounter Visit Diagnoses Not on filedocumented in this encounter Additional Health Concerns Infection Onset Date Last Indicated Resolved Time COVID-19 12/20/2023 12/21/2023 documented as of this encounter Care Teams Preparation Department Supervisor Relationship Specialty Start Date End Date Zari Henry MD [address] [place] [address] 09648 PCP - General Internal Medicine 08/17/21 Xuan Brantley MD [address] [place] [address] 74808 Specialist Cardiology 05/05/23 documented as of this encounter
--- OUTSIDE RECORDS SUMMARY | 2025-07-01 08:02 | XMS_ITS | Encounter Summary ---
[facility] Address [address] [place] [address] Care Team Providers Care Lawn Care Professional Name Role Phone Mckenna Jones MD Primary Care Provider Unavail able Zari Henry MD Primary Care Provider [phone] Delmis Tran MD Unavailable [phone] Xuan Brantley MD Unavailable [phone] Reason for Visit * Reason Onset Date Comments Prior Authorization 11/09/2020 Encounter Details Date Type Department Care Team Description 11/09/2020 [facility] [address] [phone] Mckenna Jones MD Prior Authorization Social History Tobacco Use Types [...] have Coronavirus / COVID-19? Unable to assess 11/05/2020 9:14 AM EST documented as of this encounter Miscellaneous Notes * Telephone Encounter - Erinn Lantigua M.A. - 03/05/2021 2:15 PM EDT Changed to freestyle lite strips * Telephone Encounter - Tony Doran - 11/09/2020 3:43 PM EST Prior Authorization for Medication-do not complete and send this encounter unless you have the fax from the pharmacy. Is this a Cover My Meds request: Yes -- [place] Code [id number] Name of Medication Freestyle Precision Frank Test Strip Dose of Medication not on form What is the RX # from the faxed refill? Not on form How does patient take this med? Not on form What Pharmacy did the fax come from: [facility] Pharm[facility] fax #: Not on form Third Libertarian Information from fax: What Prescription Plan does the patient have? Not on form BIN/PCN if applicable: Not on form Cardholder ID:Not on form Person Code: Not on form Relationship Code: Not on form Help desk phone: Not on form documented in this encounter Plan of Treatment Not on file documented as of this encounter Visit Diagnoses Not on filedocumented in this encounter Additional Health Concerns Infection Onset Date Last Indicated Resolved Time COVID-19 12/20/2023 12/21/2023 documented as of this encounter Care Teams Lawn Care Professional Relationship Specialty Start Date End Date Mckenna Jones MD PCP - General Internal Medicine 05/17/19 08/16/21 Zari Henry MD [address] [place] [address] 74384 PCP - General Internal Medicine 08/17/21 Delmis Tran MD [address] [place] [address] 00690 Specialist Cardiology 04/10/23 05/04/23 Xuan Brantley MD [address] [place] [address] 37545 Specialist Cardiology 05/05/23 documented as of this encounter
--- OUTSIDE RECORDS SUMMARY | 2025-07-01 08:02 | XMS_ITS | Encounter Summary ---
Author Organization [facility] Address [address] [place] [address] Care Team Providers Care Saw Handle Assembler Name Role Phone Zari Henry MD Primary Care Provider [phone] Delmis Tran MD Unavailable [phone] Xuan Brantley MD Unavailable [phone] Encounter Details Date Type Department Care Team Description 09/27/2022 CG Report Medical Records [address] [place] [address] 80337 Abstract, Provider Social History Tobacco Use Types [...] documented as of this encounter Care Teams Saw Handle Assembler Relationship Specialty Start Date End Date Zari Henry MD [address] [place] [address] 92302 PCP - General Internal Medicine 08/17/21 Delmis Tran MD [address] [place] [address] 77739 Specialist Cardiology 04/10/23 05/04/23 Xuan Brantley MD [address] [place] [address] 62138 Specialist Cardiology 05/05/23 documented as of this encounter
--- OUTSIDE RECORDS SUMMARY | 2025-07-01 08:02 | XMS_ITS | Encounter Summary ---
Author Organization [facility] Address [address] [place] [address] Care Team Providers Care Senior Sas Developer Name Role Phone Zari Henry MD Primary Care Provider [phone] Delmis Tran MD Unavailable [phone] Xuan Brantley MD Unavailable [phone] Encounter Details Date Type Department Care Team Description 09/08/2022 CG Report Medical Records [address] [place] [address] 23922 Abstract, Provider Social History Tobacco Use Types [...] as of this encounter Care Teams Senior Sas Developer Relationship Specialty Start Date End Date Zari Henry MD [address] [place] [address] 73613 PCP - General Internal Medicine 08/17/21 Delmis Tran MD [address] [place] [address] 09087 Specialist Cardiology 04/10/23 05/04/23 Xuan Brantley MD [address] [place] [address] 26347 Specialist Cardiology 05/05/23 documented as of this encounter
--- OUTSIDE RECORDS SUMMARY | 2025-07-01 08:02 | XMS_ITS | Encounter Summary ---
Author Organization [facility] Address [address] [place] [address] Care Team Providers Care Meter Maintenance Person Name Role Phone Zari Henry MD Primary Care Provider [phone] Delmis Tran MD Unavailable [phone] Xuan Brantley MD Unavailable [phone] Reason for Visit * Reason Onset Date Comments hospital follow up 11/10/2022 Encounter Details Date Type Department Care Team Description 11/10/2022 Telephone Adult Medicine [address] [phone] Zari Henry MD [address] [place] [address] [phone] hospital follow up Social History Tobacco Use [...] encounter Miscellaneous Notes * Telephone Encounter - Mara Perez - 11/11/2022 1:32 PM EST Called and left to return my call. * Telephone Encounter - Didi Borden - 11/10/2022 3:05 PM EST Hospital follow up appointment needed Hospital patient was treated at: [facility] Was this only an ER visit or was the patient admitted to the hospital? Admitted to hospital Date of visit if ER visit only: N/A If patient was admitted what was the date of discharge? 11/05/22 Reason/diagnosis for visit or stay: Heart failure syncope and anemia When was the patient told to follow up? 7-10 days Was visit or stay related to an injury? NO If yes, what was the date of injury (DOI)? N/A If yes, was the injury due to N/A documented in this encounter Plan of Treatment Not on file documented as of this encounter Visit Diagnoses Not on filedocumented in this encounter Additional Health Concerns Infection Onset Date Last Indicated Resolved Time COVID-19 12/20/2023 12/21/2023 documented as of this encounter Care Teams Meter Maintenance Person Relationship Specialty Start Date End Date Zari Henry MD [address] [place] [address] 83364 PCP - General Internal Medicine 08/17/21 Delmis Tran MD [address] [place] [address] 48544 Specialist Cardiology 04/10/23 05/04/23 Xuan Brantley MD [address] [place] [address] 35102 Specialist Cardiology 05/05/23 documented as of this encounter
--- OUTSIDE RECORDS SUMMARY | 2025-07-01 08:02 | XMS_ITS | Encounter Summary ---
Author Organization [employer] [facility] Address [address] [place] [address] Care Team Providers Care Parks And Recreation Manager Name Role Phone Mckenna Jones MD Primary Care Provider Unavail able Zari Henry MD Primary Care Provider [phone] Delmis Tran MD Unavailable [phone] Xuan Brantley MD Unavailable [phone] Encounter Details Date Type Department Care Team Description 06/11/2020 Orders Only Medical Records [address] [place] [address] [id number] Yuri Sims DO Social History Tobacco Use Types Packs/Day Years [...] Date/Time Associated Diagnosis Comments OUTSIDE LAB Routine 06/10/2020 documented in this encounter Results * OUTSIDE LAB (06/10/2020) Yuri Sims DO LAB documented in this encounter Visit Diagnoses Not on filedocumented in this encounter Additional Health Concerns Infection Onset Date Last Indicated Resolved Time COVID-19 12/20/2023 12/21/2023 documented as of this encounter Care Teams Parks And Recreation Manager Relationship Specialty Start Date End Date Mckenna Jones MD PCP - General Internal Medicine 05/17/19 08/16/21 Zari Henry MD [address] [place] [address] PCP - General Internal Medicine 08/17/21 Delmis Tran MD [address] [place] [address] 55244 Specialist Cardiology 04/10/23 05/04/23 Xuan Brantley MD [address] [place] [address] 92447 Specialist Cardiology 05/05/23 documented as of this encounter
--- OUTSIDE RECORDS SUMMARY | 2025-07-01 08:02 | XMS_ITS | Clinical Summary ---
Author Organization [facility] Address [address] [place] [address] Care Team Providers Care Wick And Base Assembler Name Role Phone Zari Henry MD Primary Care Provider [phone] Allergies Active Allergy Reactions Criticality Noted Date [...] age to complete this topic Care Teams Wick And Base Assembler Relationship Specialty Start Date End Date Zari Henry MD PCP - General Internal Medicine 01/21/22
--- OUTSIDE RECORDS SUMMARY | 2025-07-01 08:02 | XMS_ITS | Encounter Summary ---
Author Organization [facility] Address [address] [place] [address] Care Team Providers Care Inspector Mechanical Name Role Phone Zari Henry MD Primary Care Provider [phone] Delmis Tran MD Unavailable [phone] Xuan Brantley MD Unavailable [phone] Encounter Details Date Type Department Care Team Description 08/24/2022 Telephone Adult Medicine [address] [phone] Zari Henry MD [address] [place] [address] [phone] Social History Tobacco Use Types Packs/Day Years [...] encounter Miscellaneous Notes * Telephone Encounter - John Pulido L.P.N. - 08/24/2022 2:50 PM EDT Called [facility] Left VO for Ssylvia on her (+ID) VM * Telephone Encounter - Zari Henry MD - 08/24/2022 2:33 PM EDT Ok for VO; needs to keep 09/02 appt for signed orders * Telephone Encounter - John Pulido L.P.N. - 08/24/2022 2:16 PM EDT [facility] called for nursing and PT need VO Come out of [facility] Has a hospital follow upwith Dr. Henry on 09/02 Please review and advise documented in this encounter Plan of Treatment Not on file documented as of this encounter Visit Diagnoses Not on filedocumented in this encounter Additional Health Concerns Infection Onset Date Last Indicated Resolved Time COVID-19 12/20/2023 12/21/2023 documented as of this encounter Care Teams Inspector Mechanical Relationship Specialty Start Date End Date Zari Henry MD [address] [place] [phone] PCP - General Internal Medicine 08/17/21 Delmis Tran MD [address] [place] [address] 86597 Specialist Cardiology 04/10/23 05/04/23 Xuan Brantley MD [address] [place] [address] 51114 Specialist Cardiology 05/05/23 documented as of this encounter
--- OUTSIDE RECORDS SUMMARY | 2025-07-01 08:02 | XMS_ITS | Encounter Summary ---
Author Organization [facility] Address [address] [place] [address] Care Team Providers Care Multimedia Authoring Specialist Name Role Phone Zari Henry MD Primary Care Provider [phone] Xuan Brantley MD Unavailable [phone] Encounter Details Date Type Department Care Team Description 02/23/2024 Mobile Application Developer Report Medical Records [address] [place] [address] MD Social History Tobacco Use Types Packs/Day [...] documented as of this encounter Care Teams Multimedia Authoring Specialist Relationship Specialty Start Date End Date Zari Henry MD [address] [place] [address] PCP - General Internal Medicine 08/17/21 Xuan Brantley MD [address] [place] [address]6554 Specialist Cardiology 05/05/23 documented as of this encounter
--- OUTSIDE RECORDS SUMMARY | 2025-07-01 08:02 | XMS_ITS | Encounter Summary ---
Author Organization [facility] Address [address] [place] [address] Care Team Providers Care Executive Coordinator Name Role Phone Zari Henry MD Primary Care Provider [phone] Delmis Tran MD Unavailable [phone] Xuan Brantley MD Unavailable [phone] Encounter Details Date Type Department Care Team Description 08/11/2022 Hospital Medical Records [address] [place] [id number] Unique Rey NP Social History Tobacco Use [...] documented as of this encounter Care Teams Executive Coordinator Relationship Specialty Start Date End Date Zair Henry MD [address] [place] [address] [phone] PCP - General Internal Medicine 08/17/21 Delmis Tran MD [address] [place] [address] Specialist Cardiology 04/10/23 05/04/23 Xuan Brantley MD [address] [place] [address] 13621 Specialist Cardiology 05/05/23 documented as of this encounter
--- OUTSIDE RECORDS SUMMARY | 2025-07-01 08:02 | XMS_ITS | Encounter Summary ---
Author Organization [facility] Address [address] [place] [address] Care Team Providers Care Debrander Name Role Phone Zari Henry MD Primary Care Provider [phone] Xuan Brantley MD Unavailable [phone] Reason for Visit * Reason Comments E-prescribe Rx Request Encounter Details Date Type Department Care Team Description 02/01/2024 Refill Endocrinology - [address] [address] Lea Alex PA-C [address] [place] [id number] E-prescribe Rx Request Social History Tobacco Use [...] encounter Miscellaneous Notes * Telephone Encounter - Lea Alex PA-C - 02/02/2024 11:51 AM EDT Patient is not on insulin pump * Telephone Encounter - Isabel Chowdhury M.A. - 02/01/2024 4:54 PM EDT Kathleen 06/20/23 Ov 03/07/24 Lab Results Component Value Date HGBA1C 9.2 11/29/2023 MALBUR 692.0 11/29/2023 MALBCR 508.8 11/29/2023 CHOL 133 11/29/2023 LDL 24 11/29/2023 HDL 46 11/29/2023 TRIG 315 11/29/2023 GLU 139 11/29/2023 CREAT 2.07 11/29/2023 documented in this encounter Plan of Treatment Not on file documented as of this encounter Visit Diagnoses Not on filedocumented in this encounter Additional Health Concerns Infection Onset Date Last Indicated Resolved Time COVID-19 12/20/2023 12/21/2023 documented as of this encounter Care Teams Debrander Relationship Specialty Start Date End Date Zari Henry MD [address] [place] [phone] PCP - General Internal Medicine 08/17/21 Xuan Brantley MD [address] [place] [address]41 Specialist Cardiology 05/05/23 documented as of this encounter
--- OUTSIDE RECORDS SUMMARY | 2025-07-01 08:02 | XMS_ITS | Encounter Summary ---
Author Organization [facility] Address [address] [place] [address] Care Team Providers Care Concrete Hopper Operator Name Role Phone Zari Henry MD Primary Care Provider [phone] Delmis Tran MD Unavailable [phone] Xuan Brantley MD Unavailable [phone] Encounter Details Date Type Department Care Team Description 08/01/2022 Hospital Medical Records [address] [place] [id number] Garret Cifuentes Social History Tobacco Use Types [...] as of this encounter Care Teams Concrete Hopper Operator Relationship Specialty Start Date End Date Zari Henry MD [address] [place] [address] [phone] PCP - General Internal Medicine 08/17/21 Delmis Tran MD [address] [place] [address] Specialist Cardiology 04/10/23 05/04/23 Xuan [place]ley MD [address] [place] [address] Specialist Cardiology 05/05/23 documented as of this encounter
--- OUTSIDE RECORDS SUMMARY | 2025-07-01 08:02 | XMS_ITS | Clinical Summary ---
Author Organization [facility] [employer] [facility] Address [address] [place] [address] Phone Care Team Providers Care Salesperson Furs Name Role Phone Zari Henry MD Primary Care Provider [phone] Allergies Active Allergy Reactions Criticality Noted Date Comments Dulaglutide Nausea And Vomiting 06/22/2021 Metformin 07/04/2017 Gi distress Medications aspirin 81 mg EC tablet Take 1 tablet (81 mg total) by mouth 1 (one) time each day. 021 Active lisinopril (PRINIVIL,ZESTRI L) 40 mg tablet Take 1 tablet (40 mg total) by mouth 1 (one) time each day. 022 Active nicotine (Nicotrol) 10 mg inhaler 021 Active tadalafiL (CIALIS) 20 mg tablet Take 1 tablet (20 mg total) by mouth. 020 Active isosorbide mononitrate (IMDUR) 30 mg 24 hr tablet TAKE 1 TABLET BY MOUTH EVERY DAY 90 tablet 1 025 Active Ventolin HFA 90 mcg/actuation inhaler INHALE 2 PUFFS INTO THE LUNGS EVERY 4 HOURS NEEDED FOR WHEEZING FOR UP TO 30 DAYS. 18 each 2 024 Active oxyCODONE-acetam inophen (PERCOCET) 5-325 mg per tabletIndication s:Muscle cramp Take 1 tablet by mouth every 6 (six) hours if needed for severe pain for up to 15 doses. Max Daily Amount: 4 tablets 15 tablet 025 Active Advair Diskus 250-50 mcg/dose diskus inhaler Inhale 1 puff by mouth 2 (two) times a day. Active diclofenac (VOLTAREN) 1 % topical gel Apply 2 g topically 2 (two) times a day. 200 g 1 025 Active atorvastatin (LIPITOR) 40 mg tablet Take 1 tablet (40 mg total) by mouth 1 (one) time each day. 90 tablet 1 025 Active sucralfate (CARAFATE) 1 gram tablet Take 1 tablet (1 g total) by mouth 4 (four) times a day. 360 tablet 1 025 Active traZODone (DESYREL) 100 mg tablet Take 1 tablet (100 mg total) by mouth at bedtime. 90 each 1 025 Active metoprolol succinate (TOPROL-XL) 100 mg 24 hr tablet TAKE 1 TABLET BY MOUTH EVERY DAY 90 tablet 1 025 Active insulin lispro 100 unit/mL injectionIndicat ions:Type 2 diabetes mellitus with diabetic nephropathy ([facility] V24, [facility] V28) INJECT 100 UNITS DIRECTED SEE ADMIN INSTRUCTIONS. USE PER INSULIN PUMP 30 mL 2 025 Active hydrALAZINE (APRESOLINE) 100 mg tablet Take 1 tablet (100 mg total) by mouth 3 (three) times a day. 270 tablet 1 025 Active albuterol 2.5 mg /3 mL (0.083 %) nebulizer solution Take 3 mL (2.5 mg total) by nebulization every 6 (six) hours if needed for wheezing. 300 mL 3 025 2025 Active amLODIPine (NORVASC) 5 mg tablet Take 2 tablets (10 mg total) by mouth 1 (one) time each day. 180 tablet 1 025 Active insulin pump cart,cont inf,BT (Omnipod Dash Pods, Gen 4,) cartridgeIndicat ions:DM (diabetes mellitus), type 2 with peripheral vascular complications ([facility] [place] [facility] [place]) INJECT 1 EACH UNDER THE SKIN EVERY 3 DAYS 15 each 11 025 Active torsemide (DEMADEX) 20 mg tablet TAKE 3 TABLETS BY MOUTH EVERY AM AND TAKE 2 TABLETS IN THE PM 150 tablet 1 025 Active magnesium oxide (MAG-OX) 400 mg (241.3 elemental magnesium) tablet Active omeprazole (PriLOSEC) [address] capsule Take 1 capsule (40 mg total) by mouth 1 (one) time each day. 90 capsule 1 Active gabapentin (NEURONTIN) 300 mg capsule Take 1 capsule (300 mg total) by mouth 3 (three) times a day. 270 each 1 Active escitalopram (LEXAPRO) 20 mg tablet Take 1 tablet (20 mg total) by mouth 1 (one) time each day. 90 each 1 025 2025 Active escitalopram (LEXAPRO) 10 mg tablet Take 1 tablet (10 mg total) by mouth 1 (one) time each day. 90 tablet 1 025 2024 Discontinued omeprazole (PriLOSEC) [address] capsule Take 1 capsule (40 mg total) by mouth 1 (one) time each day. 90 capsule 1 025 2024 Discontinued(R eorder) gabapentin (NEURONTIN) 300 mg capsule Take 1 capsule (300 mg total) by mouth 3 (three) times a day. 270 each 1 025 2024 Discontinued(R eorder) Active Problems Problem Noted Date Diagnosed Date DM (diabetes mellitus), type 2 with peripheral vascular complications ([facility] [place], [facility] [place]) 12/05/2024 MAGDA (iron deficiency anemia) 04/06/2023 Requires supplemental oxygen 04/06/2023 CHF (congestive heart failure) ([facility] [place], [facility] V28) 01/06/2023 Obstructive sleep apnea syndrome 05/09/2022 Adrenal mass ([facility] [place]) 03/24/2022 Claudication of both lower extremities ([facility] [place]) 12/27/2021 Sleep related hypoxia 08/17/2021 Overview (07/12/2024): On oxygen at nighttime Asthma-COPD overlap syndrome (CMS/HCC V24, [facility] V28) 08/17/2021 Overview (12/11/2024): Microscopic hematuria 12/25/2020 Overview (11/29/2024): Normal renal ultrasound, referred to urology for further work-up Condyloma acuminata 11/18/2020 Overview (11/29/2024): Condyloma acuminata 11/19 penis PAD (peripheral artery disease) ([facility] V24) Overview (11/29/2024): With LLE angioplasty 01/2020 Polycythemia 06/04/2018 Anxiety 08/01/2017 Microalbuminuria 04/14/2017 Depression 01/31/2017 HTN (hypertension), benign 01/31/2017 Hyperlipidemia 01/31/2017 Resolved Problems Problem Noted Date Diagnosed Date Resolved Date Type 2 diabetes mellitus (CM S/HCC V24, [facility]/HCC V28) 01/31/2017 12/05/2024 Encounters Date Type Department Care Team Description 06/25/2025 Telephone Pulmonolgy - [address] [place] [address] Nisa Machado MD 06/23/2025 Billing Patient Not Present Adult Medicine [address] [phone] Zari Henry MD 06/20/2025 1:00 PM EDT Office Visit Adult Medicine [address] [phone] Zari Henry MD Tachycardia (Primary Dx); COPD exacerbation (CMS/HCC V24, [facility] V28); KELVIN (acute kidney injury) ([facility] V24); Dehydration; Diarrhea, unspecified type; HTN (hypertension), benign; Acute on chronic right-sided congestive heart failure (CMS/HCC V24, [facility] V28); DM (diabetes mellitus), type 2 with peripheral vascular complications ([facility] [place], [facility] V28); PVD (peripheral vascular disease) ([facility] [place]); Claudication of both lower extremities ([facility] [place]) 06/17/[address] [phone] Zari Henry MD 06/16/2025 Telephone Adult [address] [phone] Zari Henry MD 06/12/[address] [phone] Zari Henry MD 05/30/[address] [phone] Zari Henry MD 05/30/[address] [phone] Zari Henry MD 05/30/[address] [phone] Zari Henry MD 05/22/[address] [phone] John Pulido LPN 04/28/[address] [phone] Lea Alex PA 04/23/2025 3:30 PM EDT Office Visit [address] [phone] Zari Herny MD DM (diabetes mellitus), type 2 with peripheral vascular complications ([facility] [place], [facility] V28) (Primary Dx); Other hyperlipidemia; Acute on chronic right-sided congestive heart failure ([facility] [place], [facility] V28); HTN (hypertension), benign; Pain in both feet; Skin lesion 04/22/2025 3:30 PM EDT [facility] [address] [place] [address] Nisa Machado MD Asthma-COPD overlap syndrome ([facility] [place], [facility] V28) (Primary Dx); Obstructive sleep apnea syndrome; Acute on chronic right-sided congestive heart failure ([facility] [place], [facility] V[place]) 04/10/2025 Billing Patient Not Present Adult Medicine [address] [phone] Zari Henry MD 04/10/2025 Telephone Adult Medicine [address] [phone] Zari Henry MD 04/02/2025 Telephone Adult Medicine [address] [phone] Zari Henry MD from Last 3 Months Immunizations Name [...] (diabetes mellitus), type 2 with renal complications ([facility] [place], [facility] [place]) 01/31/2017 Microalbuminuria 04/14/2017 Polycythemia 06/04/2018 Condyloma acuminata 11/18/2020 Condyloma ac uminata 11/19 penis YARELIS (obstructive sleep apnea) 05/09/2022 CHF (congestive heart failur e) ([facility] [place], [facility] [place]) 01/06/2023 DM (diabetes mellitus), type 2 with peripheral vascular complications ([facility] [place], [facility] [place]) 12/05/2024 Family History Medical History Relation Name Comments Colon cancer Neg Hx Social History Tobacco Use Types Packs/Day Years Used Date Smoking Tobacco: Light Smoker Cigarettes 0.5 34.7 Started: 10/30/1990 Smokeless Tobacco: Never Tobacco Cessation:Ready [...] Sign Reading Time Taken Comments Blood Pressure 166/58 06/20/2025 1:05 PM EDT Pulse 120 06/20/2025 1:05 PM EDT Temperature 36.4 C (97.5 F) 06/20/2025 1:05 PM EDT Respiratory Rate 14 06/20/2025 1:05 PM EDT Oxygen Saturation 95% 06/20/2025 1:05 PM EDT Inhaled Oxygen Concentration - - Weight 58.6 kg (129 lb 1.6 oz) 06/20/2025 1:05 P M EDT Height 165.1 cm (5' 5 ) 06/20/2025 1:05 PM EDT Body Mass Index 21.48 06/20/2025 1:05 PM EDT Plan of Treatment Upcoming Encounters Date Type Department Care Team (Late st Contact Info) Description 07/01/2025 1:30 PM EDT Consult Orthopedic Surgery - [place] [address] [facility] [address] [place] [phone] Rivas Norman DPM [address] [place] [address] 08/25/2025 2:30 PM EDT Office Visit Adult Medicine [facility] [address] [place], [place] [phone] Nadege Begum PA [address] [place], [place] 09/08/2025 2:15 PM EST Office Visit Pulmonolgy [facility] [address] [facility] [address] [place] [phone] Nisa Machado MD [address] [place] [address] Health Maintenance Due Date Last Done Comments Diabetes: Annual Foot Exam 1984 Diabetes: Annual Retina Eye Exam 1984 Hepatitis B Vaccines (1 of 3 - 19+ 3-dose series) 1993 Pneumococcal Vaccine: 50+ Years (2 of 2 - PPSV23) 12/03/2019 10/08/2019 Cholesterol Screening (Lipid Panel) 10/07/2022 Colorectal Cancer Screening: Colonoscopy 10/07/2022 HIV Screening 10/07/2022 Hepatitis C Screening 10/07/2022 Social Influencers of Health Screening 10/07/2022 Zoster Vaccines (1 of 2) 2024 Depression Screening 10/30/2024 COVID-19 Vaccine ( - season) 2025 08/15/2022, 03/18/2021, 02/10/2021 Influenza Vaccine (#1) 2025 , 07/22/2022, 07/16/2021, Additional history exists Diabetes: Blood Sugar Control Test (HGBA1C) 08/08/2025 02/06/2025, 11/08/2024, 05/03/2024 Diabetes: Annual GFR (Glomerular Filtration Rate) 02/06/2026 02/06/2025, 12/01/2024, 11/08/2024, Additional history exists Hypertension/CHF/CAD Annual BMP Blood Test 02/06/2026 02/06/2025, 12/01/2024, 11/08/2024, Additional history exists Diabetes: Annual Urine Albumin-Creatinine Ratio (uACR) 05/20/2026 05/20/2025, 07/12/2023 DTaP,Tdap,and Td Vaccines (2 - Td or Tdap) 05/17/2029 05/17/2019 HIB Vaccines Aged Out No longer eligi [...] Procedure Name Priority Date/Time Associated Diagnosis Comments ECG 12-LEAD Routine 06/20/2025 1:42 PM EDT Tachycardia BASIC METABOLIC PANEL Routine 02/06/2025 2:04 PM EDT Acute on chronic right-sided congestive heart failure (CMS/HCC V24, CMS/HCC V28) HEMOGLOBIN A1C Routine 02/06/2025 2:04 PM EDT DM (diabetes mellitus), type 2 with peripheral vascular complications (CMS/HCC V24, CMS/HCC V28) from Last 3 Months or Most Recently Relevant to Health Maintenance Results * (ABNORMAL) ECG 12 lead (06/20/2025 1:42 PM EDT) Zari Henry MD ECG ORDERABLES Final Result * (ABNORMAL) Hemoglobin A1c (02/06/2025 2:04 PM EDT) Hemoglobin A1C 8.1(H) <6.5 % LAB CHEMISTRY METHOD 02/07/2025 11:06 AM [facility] Mean Bld Glu Estim. 186 mg/dL LAB CHEMISTRY METHOD 02/07/2025 11:06 AM [facility] Blood Venous blood specimen / Unknown Venipuncture / Unknown 02/06/2025 2:04 PM EDT 02/06/2025 2:04 PM EDT us Zari Henry MD LAB BLOOD ORDERABLES Final Resul t [facility] [address] [place] [address], [place] [phone] * (ABNORMAL) Basic metabolic panel (02/06/2025 2:04 PM EDT) [facility] Sodium 136 133 - 145 mmol/L LAB CHEMISTRY METHOD 02/06/2025 5:07 PM [facility] Potassium 4.2 3.5 - 5.5 mmol/L LAB CHEMISTRY METHOD 02/06/2025 5:07 PM [facility] Chloride 99 96 - 110 mmol/L LAB CHEMISTRY METHOD 02/06/2025 5:07 PM [facility] CO2 28 21 - 32 mmol/L LAB CHEMISTRY METHOD 02/06/2025 5:07 PM [facility] Anion Gap 9 3 - 11 LAB CHEMISTRY METHOD 02/06/2025 5:07 PM [facility] Glucose 317(H) 70 - 100 mg/dL LAB CHEMISTRY METHOD 02/06/2025 5:07 PM [facility] BUN 25 5 - 25 mg/dL LAB CHEMISTRY METHOD 02/06/2025 5:07 PM [facility] Creatinine 1.91(H) 0.70 - 1.30 mg/dL LAB CHEMISTRY METHOD 02/06/2025 5:07 PM EDT [facility] eGFR 42(L) >=60 mL/min/1. 73m2 LAB CHEMISTRY METHOD 02/06/2025 5:07 PM EDT [facility] Comment:Calculation based on the Chronic Kidney Disease Epidemiology Collaboration (CKD-EPI) equation refit without adjustment for race. BUN/Creatinine Ratio 13.1 LAB CHEMISTRY METHOD 02/06/2025 5:07 PM EDT [facility] Calcium 9.5 8.5 - 10.5 mg/dL LAB CHEMISTRY METHOD 02/06/2025 5:07 PM EDT [facility] Blood Venous blood specimen / Unknown Venipuncture / Unknown 02/06/2025 2:04 PM EDT 02/06/2025 2:04 PM EDT us Zari Henry MD LAB BLOOD ORDERABLES Final Resul t [facility] [address] [place] [address], from Last 3 Months or Most Recently Relevant to Health Maintenance [id number] [place] [address] [facility] [place] [address] Care Teams Salesperson Furs Relationship Specialty Start Date End Date Zari Henry MD [address] [place] [address] PCP - General Internal Medicine 10/19/21
--- OUTSIDE RECORDS SUMMARY | 2025-07-01 08:02 | XMS_ITS | Encounter Summary ---
Author Organization [facility] Address [address] [place] [address] Care Team Providers Care Plant Breeder Name Role Phone Zari Henry MD Primary Care Provider [phone] Xuan Brantley MD Unavailable [phone] Encounter Details Date Type Department Care Team Description 05/22/2024 Orders Only Medical Records [address] [place] [address] Trent Cisneros DO [address] [facility] [address] [facility] [place] [address] Social History Tobacco Use Types Packs/Day Years [...] as of this encounter Progress Notes * Ronit Lombardo M.A. - 05/24/2024 2:35 PM EDT Spoke to patient and let him know. He picked up the medication today and will start taking it today. I placed the recall reminder in the system and he was agreeable. 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 This usually happens in people who take inhaled steroids for COPD, just like him. Given his symptoms, I recommend that he takes fluconazole 200 mg daily for 14- day treatment to kill the fungus that is inflaming/infecting his esophagus. In fact, I havealready sent the prescription to his pharmacy. His colon polyps were benign, but precancerous. Given the type and the size of his colon polyps I recommend that he has a repeat screening colonoscopy in [address] a reminder into our system. It is very important that moving forward he drinks a full glass of water after he does his inhaled corticosteroids to prevent recurrence of these inflammation/infection. Thank you. He should also continue with his antireflux treatment as current. He should follow-up with his PCP as instructed and in GI clinic with Alisha over the next couple months. Diagnosis: Ambar esophagitis, GERD. Thank you. documented in this encounter Plan of Treatment Not on file documented as of this encounter Procedures Procedure Name Priority Date/Time Associated Diagnosis Comments OUTSIDE COLONOSCOPY Routine 05/20/2024 OUTSIDE PATHOLOGY Routine 05/20/2024 documented in this encounter Results * OUTSIDE COLONOSCOPY (05/20/2024) Trent Cisneros DO RADIOLOGY * OUTSIDE PATHOLOGY (05/20/2024) Trent Cisneros DO OUTSIDE LAB documented in this encounter Visit Diagnoses Not on filedocumented in this encounter Additional Health Concerns Infection Onset Date Last Indicated Resolved Time COVID-19 12/20/2023 12/21/2023 documented as of this encounter Care Teams Plant Breeder Relationship Specialty Start Date End Date Zari Henry MD [address] [place] [address] PCP - General Internal Medicine 08/17/21 Xuan Brantley MD [address] [place] [address] 96393 Specialist Cardiology 05/05/23 documented as of this encounter
--- OUTSIDE RECORDS SUMMARY | 2025-07-01 08:02 | XMS_ITS | Encounter Summary ---
[facility] Address [address] [place] [address] Care Team Providers Care Envelope Press Operator Name Role Phone Zari Henry MD Primary Care Provider [phone] Delmis Tran MD Unavailable [phone] Xuan Brantley MD Unavailable [phone] Encounter Details Date Type Department Care Team Description 09/02/2022 Telephone Adult Medicine [address] [phone] Zari Henry MD [address] [place] [address] [phone] Social History Tobacco Use Types Packs/Day Years [...] Telephone Encounter - John Pulido L.P.N. - 09/02/2022 11:28 AM EDT Telephone Information: Left a message for patient to call me Please pass this call to me at EX [phone] Thank you Spoke with Edelmira at [facility] he cancelled his appt yesterday with the nurse documented in this encounter Plan of Treatment Not on file documented as of this encounter Visit Diagnoses Not on filedocumented in this encounter Additional Health Concerns Infection Onset Date Last Indicated Resolved Time COVID-19 12/20/2023 12/21/2023 documented as of this encounter Care Teams Envelope Press Operator Relationship Specialty Start Date End Date Zari Henry MD [address] [place] [address] PCP - General Internal Medicine 08/17/21 Delmis Tran MD [address] [place] [address] 84965 Specialist Cardiology 04/10/23 05/04/23 Xuan Brantley MD [address] [place] [address] 90762 Specialist Cardiology 05/05/23 documented as of this encounter
--- OUTSIDE RECORDS SUMMARY | 2025-07-01 08:02 | XMS_ITS | Encounter Summary ---
Author Organization [facility] Address [address] [place] [address] Care Team Providers Care Litigation Examiner Name Role Phone Zari Henry MD Primary Care Provider [phone] Xuan Brantley MD Unavailable [phone] Encounter Details Date Type Department Care Team Description 12/25/2023 Hospital Medical Records [address] [place] [id number] Rosibel Bowen Social History Tobacco Use Types Packs/Day Years [...] documented as of this encounter Care Teams Litigation Examiner Relationship Specialty Start Date End Date Zari Henry MD [address] [place] [address] PCP - General Internal Medicine 08/17/21 Xuan Brantley MD [address] [place] [address] 25283 Specialist Cardiology 05/05/23 documented as of this encounter
--- OUTSIDE RECORDS SUMMARY | 2025-07-01 08:02 | XMS_ITS | Encounter Summary ---
Author Organization [employer] [facility] Address [address] [place] [address] Care Team Providers Care Stator Tester Name Role Phone Zari Henry MD Primary Care Provider [phone] Delmis Tran MD Unavailable [phone] Xuan Brantley MD Unavailable [phone] Encounter Details Date Type Department Care Team Description 10/04/2022 SCAN Medical Records [address] [place] [address] Moe Fernandes MD Social History Tobacco Use [...] Date/Time Associated Diagnosis Comments OUTSIDE LAB Routine 10/04/2022 documented in this encounter Results * OUTSIDE LAB (10/04/2022) Provider Abstract LAB documented in this encounter Visit Diagnoses Not on filedocumented in this encounter Additional Health Concerns Infection Onset Date Last Indicated Resolved Time COVID-19 12/20/2023 12/21/2023 documented as of this encounter Care Teams Stator Tester Relationship Specialty Start Date End Date Zari Henry MD [address] [place] [address] PCP - General Internal Medicine 08/17/21 Delmis Tran MD [address] [place] [address]3024 Specialist Cardiology 04/10/23 05/04/23 Xuan Brantley MD [address] [place] [address] 39929 Specialist Cardiology 05/05/23 documented as of this encounter
--- OUTSIDE RECORDS SUMMARY | 2025-07-01 08:02 | XMS_ITS | Encounter Summary ---
[facility] Address [address] [place] [address] Care Team Providers Care Associate Director Of Sales Name Role Phone Zari Henry MD Primary Care Provider [phone] Delmis Tran MD Unavailable [phone] Xuan Brantley MD Unavailable [phone] Encounter Details Date Type Department Care Team Description 04/08/2022 Hospital Medical Records [address] [place] [address] Social History Tobacco Use Types Packs/Day Years [...] suspected to have Coronavirus/COVID-19? No / Unsure 04/04/2022 4:29 PM EDT documented as of this encounter Plan of Treatment Not on file documented as of this encounter Visit Diagnoses Not on filedocumented in this encounter Additional Health Concerns Infection Onset Date Last Indicated Resolved Time COVID-19 12/20/2023 12/21/2023 documented as of this encounter Care Teams Associate Director Of Sales Relationship Specialty Start Date End Date Zari Henry MD [address] [place] [address] PCP - General Internal Medicine 08/17/21 Delmis Tran MD [address] [place] [address]35[address] Specialist Cardiology 04/10/23 05/04/23 Xuan Brantley MD [address] [place] [address]39 Specialist Cardiology 05/05/23 documented as of this encounter
--- OUTSIDE RECORDS SUMMARY | 2025-07-01 08:02 | XMS_ITS | Encounter Summary ---
[facility] Address [address] [place] [address] Care Team Providers Care Harbor Patrol Police Name Role Phone Zari Henry MD Primary Care Provider [phone] Delmis Tran MD Unavailable [phone] Xuan Brantley MD Unavailable [phone] Reason for Visit * Reason Onset Date Comments Faxed Order 09/12/2022 Deanna 09/11/20-09/12/2022 Encounter Details Date Type Department Care Team Description 09/12/2022 Telephone Adult Medicine [address] [address] Zari Henry MD [address] [place] [address] [phone] Faxed Order (Deanna 09/11/2022-09/12/2022) Social History Tobacco Use Types Packs/Day Years [...] suspected to have Coronavirus/COVID-19? No / Unsure 09/13/2022 12:47 PM EST documented as of this encounter Plan of Treatment Not on file documented as of this encounter Visit Diagnoses Not on filedocumented in this encounter Additional Health Concerns Infection Onset Date Last Indicated Resolved Time COVID-19 12/20/2023 12/21/2023 documented as of this encounter Care Teams [employer] Patrol Police Relationship Specialty Start Date End Date Zari Henry MD [address] [place] [address] PCP - General Internal Medicine 08/17/21 Delmis Tran MD [address] [place] [address] 19597 Specialist Cardiology 04/10/23 05/04/23 Xuan Brantley MD [address] [place] [address]287 Specialist Cardiology 05/05/23 documented as of this encounter
--- OUTSIDE RECORDS SUMMARY | 2025-07-01 08:02 | XMS_ITS | Encounter Summary ---
Author Organization [facility] Address [address] [place] [address] Care Team Providers Care Respiratory Care Technician Name Role Phone Zari Henry MD Primary Care Provider [phone] Xuan Brantley MD Unavailable [phone] Encounter Details Date Type Department Care Team Description 05/22/2024 Orders Only Gastroenterology - [place] [address] [facility] [address] [place] [id number] Trent Cisneros DO [address] [facility] [address] [facility] [place] [place] [address] Social History Tobacco Use Types Packs/Day Years [...] documented as of this encounter Care Teams Respiratory Care Technician Relationship Specialty Start Date End Date Zari Henry MD [address] [place] [address] PCP - General Internal Medicine 08/17/21 Xuan Brantley MD [address] [place] [address] Specialist Cardiology 05/05/23 documented as of this encounter
--- OUTSIDE RECORDS SUMMARY | 2025-07-01 08:02 | XMS_ITS | Encounter Summary ---
Author Organization [facility] Address [address] [place] [address] Care Team Providers Care Bottle House Cleaners Supervisor Name Role Phone Zari Henry MD Primary Care Provider [phone] Delmis Tran MD Unavailable [phone] Xuan Brantley MD Unavailable [phone] Reason for Visit * Reason Onset Date Comments refill request 10/04/2022 Encounter Details Date Type Department Care Team Description 10/04/2022 Refill Adult Medicine [address] [phone] Zari Henry MD [address] [place] [address] [phone] refill request Social History Tobacco Use Types [...] Telephone Encounter - Kirt Abad M.A. - 10/04/2022 4:23 PM EST Rx's given during multiple hospitalizations. Please advise, thank you. Is pt to remain on these meds? Lab Results Component Value Date NA 138 09/13/2022 K 5.0 09/13/2022 CO2 24 09/13/2022 CL 108 09/13/2022 BUN 16 09/13/2022 CREAT 1.19 09/13/2022 GLU 117 09/13/2022 CA 9.3 09/13/2022 GFR 75 09/13/2022 GABRIELLE w/PCP 09/13/2022 Next OV w/Andra Gray 03/15/2023 * Telephone Encounter - Bhavana Qureshi - 10/04/2022 4:11 PM EST Patient would like script to be: E-PRESCRIBED/FAXED TO PHARMACY WHEN WAS THE PATIENT'S LAST APPOINTMENT IN ADULT MEDICINE? 09/13/22 WHEN WAS THE LAST TIME THE PATIENT SAW THEIR PCP? Same as above Does patient have an upcoming appointment? Yes 03/15/2023 (THE MEDICATION REQUESTED IS ON THE MED LIST ABOVE) All of the medications requested were on the CURRENT MEDS list Did you check the Pharmacy information above?: YES Patient wants: 90 -day supply Is this a mail order prescription request ? NO If the refill is from a FAXED refill request what is the RX # listed on the fax? N/A Patients current insurance carrier is: Payor: [facility] / Plan: [facility] / Product Type: MEDICAID RISK documented in this encounter Plan of Treatment Not on file documented as of this encounter Visit Diagnoses Not on filedocumented in this encounter Additional Health Concerns Infection Onset Date Last Indicated Resolved Time COVID-19 12/20/2023 12/21/2023 documented as of this encounter Care Teams Bottle House Cleaners Supervisor Relationship Specialty Start Date End Date Zari Henry MD [address] [place] [address] PCP - General Internal Medicine 08/17/21 Delmis Tran MD [address] [place] [address] 08368 Specialist Cardiology 04/10/23 05/04/23 Xuan Brantley MD [address] [place] [address]29 Specialist Cardiology 05/05/23 documented as of this encounter
--- OUTSIDE RECORDS SUMMARY | 2025-07-01 08:02 | XMS_ITS | Encounter Summary ---
Author Organization [facility] Address [address] [place] [address] Care Team Providers Care Heart Specialist Name Role Phone Zari Henry MD Primary Care Provider [phone] Delmis Tran MD Unavailable Xuan Brantley MD Unavailable [phone] Encounter Details Date Type Department Care Team Description 08/25/2022 Collection Systems Modeler Report Medical Records [address] [place] [phone] [place] [address] Nurse Association, [address] [phone] Social History Tobacco Use Types Packs/Day Years [...] documented as of this encounter Care Teams Heart Specialist Relationship Specialty Start Date End Date Zari Henry MD [address] [place] [address] PCP - General Internal Medicine 08/17/21 Delmis Tran MD [address] [place] [address]19 Specialist Cardiology 04/10/23 05/04/23 Xuan Brantley MD [address] [place] [address] Specialist Cardiology 05/05/23 documented as of this encounter
[2025-07-01 08:09] LABS: MANUAL DIFF FLAG NO
[2025-07-01] MEDS: diazePAM 10 MG/2 ML CARTRIDGE 5 MG IVPUSH (08:09)
[2025-07-01 08:11] LABS: Hematocrit 34.1 % (42.0-52.0); Hemoglobin 11.6 g/dl (14.0-18.0); Imm Gran Abs Auto 0.04 X10*3/uL (0.00-0.03); Imm Gran Pct Auto 0.4 % (0.0-0.4); Lymphocytes Absolute Auto 1.5 X10*3/uL (1.2-4.9); Mean Corpuscular HGB Conc 34.0 g/dl (31.0-36.0); Mean Corpuscular Hemoglobin 28.9 pg (27.0-33.0); Mean Corpuscular Volume 84.8 fL (80.0-98.0); NRBC Abs Auto 0.000 X10*3/uL (0.0-0.012); NRBC Pct Auto 0.0 /100WBC (0.0-0.2); Platelet Count 309 X10*3/uL (160-400); Red Blood Count 4.02 X10*6/uL (4.60-5.80); White Blood Count 9.2 X10*3/uL (4.8-10.8)
--- NOTE | 2025-07-01 08:20 | PC.NURSE ---
pt noted to desat to 79% on RA while asleep. pt woken up/repositioned upright - SPO2 of 84% while awake/at rest. no sob/wob noted. pt placed on 2L via NC for supplemental O2 w/ good effect - SPO2 @ 94%. pt reports hx of YARELIS and sleeps w/ 2.5L via NC baseline. primary RN notified/aware of results.
[2025-07-01 08:29] LABS: Alanine Aminotransferase 71 U/L (0-40); Albumin Level 3.8 g/dL (3.5-5.0); Alkaline Phosphatase 255 U/L (39-117); Anion Gap 20 (12-20); Aspartate Amino Transferase 84 U/L (5-37); Blood Urea Nitrogen 26 mg/dL (9-16); Calcium 8.3 mg/dL (8.4-10.2); Carbon Dioxide 28 mmol/L (22-29); Chloride 100 mmol/L (96-108); Creatinine Clr Calc Pharmacy 47.2; Estimated Glomerular Filt Rate 47; Lipase 32 U/L (8-78); Magnesium 1.7 mg/dL (1.6-2.6); Potassium 4.2 mmol/L (3.3-5.1); Sodium 144 mmol/L (135-145); Total Protein 6.9 g/dL (6.5-8.0)
--- NOTE | 2025-07-01 09:23 | PM.IMHP ---
History of Present Illness Date of Service: 07/01/25 Chief Complaint: AUD Falls , seizures Patient is a 49-year-old with current AUD, marijuana use, current cigarette smoker, poor historian, 49 years old man with past medical history significant for HFpEF, COPD on oxygen, PAD, essential hypertension, CKD stage 3, hyperlipidemia and type 2 diabetes on insulin who presented less than 2 weeks since last admission for COPD exacerbation. Patient is a poor historian, hence history is from chart review and triage notes which indicate that he has been drinking alcohol, unable to quantify the amount, smoker unable to quantify the amount who had fallen at home and mild tongue laceration who did not want a come to the ED but was forced by his brother. Head CT was negative for any acute intracranial pathology Patient was noted to have CKD stage 3, appears to have a baseline, cholestatic pattern of liver enzymes no electrolyte abnormalities noted Tox screen negative Ethyl alcohol pending Patient is being admitted for alcohol withdrawal seizures Review of Systems Review of Systems: Yes all other systems are reviewed and are negative [facility] Medical History Tobacco use CKD (chronic kidney disease) stage 1, GFR 90 ml/min or greater YARELIS (obstructive sleep apnea) Acute on chronic diastolic (congestive) heart failure KELVIN (acute kidney injury) Chronic heart failure with preserved ejection fraction (HFpEF) Depression Acute on chronic anemia Anxiety HLD (hyperlipidemia) Diabetes HTN (hypertension) Asthma PAD (peripheral artery disease) Family History Father Alzheimer disease CAD (coronary artery disease) Surgical History History of esophagogastroduodenoscopy S/P angiogram of extremity Social History Household Members: None Household Members Other:: 4 Housing: Apartment Do you presently have visiting nurse or other home services: Yes ([facility]) Unable to assess alcohol history related to: Unknown Alcohol intake: former Comment: pt is independent in room Patient Tobacco Use Status: Current everyday Tobacco user Tobacco use type: Cigarette Cigarette Packs Per Day: 1 Cigarettes Per Day: 10 Years Smoked: 33 years Smoked in Last 30 Days: Yes e-Cigarette/Vaping Use: Currently Using Second Hand Smoke Exposure: No Use of substances other than those prescribed or required for medical reasons: Yes Substance Use Type: Marijuana Substance Use Frequency: Occasionally Have you been hit, kicked, punched, or otherwise hurt by someone within the past year? If so, by whom?: No Advance Directives: Yes Advance Directives on File: Yes Advance Directives Date on File: 06/21/21 Do you have a plan to hurt others: No Plan Recently lost weight without trying: No Poor oral hygiene: No service: No Current occupational status: disabled Meds Allergies Allergy/AdvReac Type Severity Reaction Status Date / Time dulaglutide (From [facility]) Allergy Unknown Verified 07/01/25 07:51 metformin (METFORMIN) AdvReac Mild DIARRHEA, Verified 07/01/25 07:51 nausea and vomiting Active Medications: Current Medications Thiamine HCl 200 mg/ Sodium (Chloride) 102 mls @ 204 mls/hr IV ONCE ONE Stop: 07/01/25 09:41 Pharmacy Consult (Consult Rx Etoh Phenob Im/Po) 1 each MISCELLANE ONCE PRN; Protocol PRN Reason: Consult order Home Medications ?Medication ?Instructions ?Recorded ?Confirmed ?Last Taken ?Type trazodone 50 mg tablet 100 mg PO BEDTIME 08/01/22 07/01/25 06/30/25 History aspirin 81 mg tablet,delayed 81 mg PO DAILY 10/06/22 07/01/25 06/30/25 History release atorvastatin 40 mg tablet 40 mg PO DAILY 10/06/22 07/01/25 06/30/25 History metoprolol succinate 100 mg 100 mg PO DAILY 10/06/22 07/01/25 06/30/25 History tablet,extended release 24 hr amlodipine 5 mg tablet 10 mg PO DAILY 06/02/24 07/01/25 06/30/25 History insulin pump cartridge,automated 06/11/24 03/14/25 Unknown History dose,BT with controller subcutaneous (Omnipod 5 G6 Intro Kit (Gen 5) subcutaneous cartridge with controller) omeprazole 40 mg capsule,delayed 40 mg PO DAILY@0630 07/15/24 07/01/25 06/30/25 History release insulin lispro 100 unit/mL 100 unit subcut DIRECTED 11/19/24 07/01/25 06/13/25 History subcutaneous solution sucralfate 1 gram tablet 1 g PO QID 01/14/25 07/01/25 06/30/25 History torsemide 20 mg tablet 40 mg PO BEDTIME 05/28/25 07/01/25 06/30/25 History torsemide 20 mg tablet 60 mg PO DAILY 05/28/25 07/01/25 06/30/25 History albuterol sulfate 2.5 mg/3 mL 2.5 mg inhalation Q6H PRN wheezing 06/13/25 07/01/25 Unknown History (0.083 %) solution for nebulization losartan 25 mg tablet 25 mg PO DAILY 06/13/25 07/01/25 06/13/25 History magnesium oxide 400 mg (241.3 mg 400 mg PO DAILY 06/13/25 07/01/25 06/30/25 History magnesium) tablet nicotine 21 mg/24 hr daily 21 mg transdermal DAILY PRN 06/13/25 07/01/25 Unknown History transdermal patch Smoking Cessation escitalopram oxalate 20 mg tablet 20 mg PO DAILY 07/01/25 07/01/25 06/30/25 History gabapentin 300 mg capsule 300 mg PO TID 07/01/25 07/01/25 06/30/25 History vuhhjzxa-clsynnle-ejdhe acid 400 1 tab PO DAILY 07/01/25 07/01/25 06/30/25 History mcg-vit K 20 mcg-lycop 300 mcg tablet (One-A-Day Men's Multivitamin) Physical Exam Vital Signs and Narrative: Vital Signs: Last Vital Signs Temp 97.8 F 07/01/25 07:52 Pulse 96 07/01/25 08:20 Resp 14 07/01/25 08:20 BP 157/76 H 07/01/25 08:20 Pulse Ox 94 07/01/25 08:20 O2 Del Method Nasal Cannula 07/01/25 08:20 O2 Flow Rate 2 07/01/25 08:20 BMI result Body Mass Index 21.6 General: AOx3, no acute distress Resp: CTA bilaterally CVS: S1, S2, RRR GI: +BS, NT, no distention Extremities: No edema , no asterixis noted Results Labs 07/01/25 08:05 07/01/25 08:05 Labs: Laboratory Results - last 24 hr 07/01/25 08:05 MCV 84.8 MCH 28.9 MCHC 34.0 RDW 18.9 H Plt Count 309 D MPV 9.2 L Immature Gran % (Auto) 0.4 Neut % (Auto) 76.9 H Lymph % (Auto) 15.9 L Coffey % (Auto) 5.5 Eos % (Auto) 0.9 Baso % (Auto) 0.4 Lymph # (Auto) 1.5 Coffey # (Auto) 0.5 Eos # (Auto) 0.1 Baso # (Auto) 0.0 Abs Immat Gran (auto) 0.04 H Absolute Neuts (auto) 7.0 Absolute Nucleated RBC 0.000 Nucleated RBC % (auto) 0.0 Anion Gap 20 Estim Creat Clear Calc 47.2 Estimated GFR 47 Fasting Glucose 177 H Calcium 8.3 L D Magnesium 1.7 Total Bilirubin 0.4 Direct Bilirubin 0.2 AST 84 H ALT 71 H Alkaline Phosphatase 255 H Total Protein 6.9 Albumin 3.8 Lipase 32 Imaging Radiologist's Impressions: Impressions Head CT 07/01/25 07:24 IMPRESSION: No acute fracture, bony calvarium. No acute intracranial hemorrhage. Stable brain. Electronically signed by: Jayden Camacho MD 07/01/2025 09:04 AM EDT RP Assessment and Plan (1) Alcohol withdrawal seizure: Status: Acute Patient is a 49-year-old with current AUD, marijuana use, current cigarette smoker, poor historian, 49 years old man with past medical history significant for HFpEF, COPD on oxygen, PAD, essential hypertension, CKD stage 3, hyperlipidemia and type 2 diabetes on insulin who presented less than 2 weeks since last admission for COPD exacerbation. Patient is a poor historian, hence history is from chart review and triage notes which indicate that he has been drinking alcohol, unable to quantify the amount, smoker unable to quantify the amount who had fallen at home and mild tongue laceration who did not want a come to the ED but was forced by his brother. Alcohol withdrawal seizure Phenobarb protocol started at [address] was negative for any acute intracranial pathology Patient was noted to have CKD stage 3, appears to have a baseline, cholestatic pattern of liver enzymes no electrolyte abnormalities noted Tox screen negative Fall and seizure precautions Ethyl alcohol pending Follow-up CPK we will hold aggressive hydration given HFpEF and need for diuresis Daily electrolytes and replete to goal Monitor on tele Addiction team consulted CKD stage 3 Appears to be his baseline HFpEF HTN Continue home torsemide 60 and 40 dosage Continue home meds as the patient is hypotensive with a SBP in the 170s YARELIS Nocturnal CPAP home settings Nicotine patches ordered Smoking cessation advised DVT prophylaxis with Lovenox Patient is being admitted for alcohol withdrawal seizures Quality Stroke Does the patient have a stroke diagnosis?: No VTE Prior VTE?: No VTE Risk Level:: Medical - low VTE Device Contraindication: N/A - Device Ordered VTE Drug Contraindication: N/A - Med Ordered
[2025-07-01] MEDS: Thiamine HCL 200 MG in 0.9 % Sodium Chloride 100 ML 204 MG IV (09:54)
[2025-07-01] MEDS: PHENobarbitaL sodium 130 MG/ML IM ONCE 236 MG IM (10:13)
--- NOTE | 2025-07-01 11:14 | PC.NURSE ---
Admission order for one to one watch noted. Clarification from admitting hospitalist acquired and verbal order received to d/c 1:1 watch at this time. Order discontinued. PT at bedside for eval at this time.
[2025-07-01 11:24] LABS: Folate < 2.2 ng/mL (> or = 4.0); Vitamin B12 394 pg/mL (200-900)
[2025-07-01 12:29] LABS: Appearance Urine Clear; Glucose Urine UA Negative (Negative); PH 6.5 (5.0-9.0); Specific Gravity - Urine 1.010 (1.005-1.025); UMIC TRIGGER UA YES
[2025-07-01] MEDS: PHENobarbitaL sodium 130 MG/ML VIAL IM Q3Hx2 177 MG IM ×2 (13:14→17:14)
--- NOTE | 2025-07-01 13:41 | PHA.MEDREC ---
Addendum entered by Mingo Bolaños PharmD 07/01/25 13:53: reviewed Original Note: Pharmacy Consult ? Medication Reconciliation Pharmacy has completed the medication reconciliation. Spoke with pt and he confirmed his medications. Pt confirmed he uses an Omnipod (pt changes Q72H) and states he uses Insulin Lispro too fill the pod every change; pt took the omnipod off yesterday and never put another one on. Pt confirmed he still takes Sucralfate 1gm 1 QID and states he was getting them from [facility]; I called [facility] and they confirmed the pt last filled and got that 05/13 for 30 days QTY 120.
[2025-07-01 14:22] LABS: Cannabinoid Screen Urine Not Detected (Not Detect)
[2025-07-01] MEDS: 0.9 % Sodium Chloride Flush 3 ML SYRINGE IVFLUSH ×2 (17:14→20:55)
[2025-07-01] MEDS: Metoprolol Succinate ER 100 MG TAB.ER.24H PO (18:41)
[2025-07-01] MEDS: Aspirin Enteric Coated 81 MG TABLET.DR PO (18:41)
[2025-07-01 23:46] LABS: Glucose, Whole Blood 195 mg/dL (60-115)
[2025-07-02] VITALS (10 sets, daily range): BP systolic 114–157; BP diastolic 58–76; PULSE 66–84; RESP 16–20; TEMP 36.1–37.1; O2SAT 96–99
--- NOTE | 2025-07-02 05:00 | ECG_ITS ---
Test Reason : ck rhythm qtc Blood Pressure : */* mmHG Vent. Rate : 67 BPM Atrial Rate : 67 BPM P-R Int : 138 ms QRS Dur : 88 ms QT Int : 424 ms P-R-T Axes : 50 26 46 degrees QTcB Int : 448 ms Normal sinus rhythm Normal ECG When compared with ECG of 01-Jul-2025 07:53, No significant change was found Referred By: Vickie Antony Electronically Signed By: Sadiq Rivera
--- NOTE | 2025-07-02 07:25 | MHC.CM.PN ---
Addendum entered by Jessy Bay RN 07/02/25 08:54: EMR REVIEWED, PT W/ETOH WITHDRAWAL SEIZURES, CM MET W/PT WHO REPORTS HE LIVES ALONE, IS INDEP W/CARE HOWEVER WOULD LIKE PT EVAL, PT HAS [facility] FOR MEDS/VS, PT'S GOAL IS TO RETURN HOME ON DC. PT VERIFIES PCP/HCP ON FILE ARE CORRECT. Original Note: CM ATTEMPTED TO MEET W/PT HOWEVER PER NSG PT OFF UNIT FOR XRAY, CM TO REVISIT.
[2025-07-02 07:51] LABS: Glucose, Whole Blood 119 mg/dL (60-115)
[2025-07-02 07:52] LABS: B Type Natriuretic Peptide 215 pg/mL (<100)
[2025-07-02 08:06] LABS: Thyroid Stimulating Hormone 0.20 uIU/mL (0.32-4.0)
[2025-07-02 08:09] LABS: Alanine Aminotransferase 52 U/L (0-40); Albumin Level 3.4 g/dL (3.5-5.0); Alkaline Phosphatase 226 U/L (39-117); Anion Gap 15 (12-20); Aspartate Amino Transferase 66 U/L (5-37); Blood Urea Nitrogen 14 mg/dL (9-16); Calcium 8.2 mg/dL (8.4-10.2); Carbon Dioxide 30 mmol/L (22-29); Chloride 101 mmol/L (96-108); Cholesterol 140 mg/dL (<200); Creatinine Clr Calc Pharmacy 55.4; Estimated Glomerular Filt Rate 57; HDL Cholesterol 57 mg/dL (>40); Magnesium 1.4 mg/dL (1.6-2.6); Potassium 3.6 mmol/L (3.3-5.1); Sodium 142 mmol/L (135-145); Total Protein 6.2 g/dL (6.5-8.0); Triglycerides 303 mg/dL (<150)
--- NOTE | 2025-07-02 08:13 | P.PNIM_ITS ---
Subjective Subjective Date of Service: 07/02/25 Interval History: Reports feeling better CIWA scores improving Review of Systems Review of Systems: Yes all other systems are reviewed and are negative Physical Exam 2 Exam: Exam: General: AOx3, no acute distress Resp: CTA bilaterally though diminished CVS: S1, S2, RRR GI: +BS, NT, no distention Vital Signs: Vital Signs: Last Vital Signs Temp 97.6 F 07/02/25 07:39 Pulse 70 07/02/25 07:39 Resp 20 07/02/25 07:39 BP 145/72 H 07/02/25 07:39 Pulse Ox 96 07/02/25 07:39 O2 Del Method Room Air 07/02/25 07:39 O2 Flow Rate 4 07/02/25 06:09 BMI result Body Mass Index 21.6 Objective Data Active Medications Acetaminophen (Acetaminophen 325 Mg Tablet) 650 mg PO Q6H PRN PRN Reason: Pain, Mild 1-3,fever,headache Albuterol Sulfate (Albuterol Sulfate (0.083%) 2.5 Mg/3 Ml Vial.Neb) 2.5 mg INHALE Q6H PRN PRN Reason: Wheezing Albuterol/Ipratropium (Albuterol/Iprat 2.5/0.5mg 3 Ml Ampul.Neb) 3 ml INHALE Q4H PRN PRN Reason: Shortness of Breath/Wheezing Amlodipine Besylate (Amlodipine Besylate 10 Mg Tablet) 10 mg PO DAILY [facility]; Protocol Last Admin: 07/01/25 18:41 Dose: 10 mg Documented By: JACIEL Aspirin (Aspirin Enteric Coated 81 Mg Tablet.) 81 mg PO DAILY [facility] Last Admin: 07/01/25 18:41 Dose: 81 mg Documented By: JACIEL Benzonatate (Benzonatate 100 Mg Capsule) 100 mg PO TID PRN PRN Reason: Cough Calcium Carbonate (Calcium Carbonate 750 Mg Tab.Chew) 750 mg PO Q4H PRN PRN Reason: Heartburn Dextrose (Dextrose 50 % 25 Gm/50 Ml Syringe) 25 gm IVPUSH Q15M PRN; Protocol PRN Reason: per Hypoglycemia Standing Ord. Enoxaparin Sodium (Enoxaparin Sodium 40 Mg/0.4 Ml Syringe) 40 mg SUBCUT Q24H [facility] Last Admin: 07/01/25 10:13 Dose: 40 mg Documented By: CORY Escitalopram Oxalate (Escitalopram Oxalate 20 Mg Tablet) 20 mg PO DAILY [facility] Last Admin: 07/01/25 18:41 Dose: 20 mg Documented By: JACIEL Ferrous Sulfate (Ferrous Sulfate 324 Mg Tablet.Dr) 324 mg PO DAILY [facility] Gabapentin (Gabapentin 300 Mg Capsule) 300 mg PO TID [facility] Last Admin: 07/01/25 20:54 Dose: 300 mg Documented By: SCOTT Glucose (Glucose Gel 15 Gm Gel..Gram.) 15 gm PO Q15M PRN; Protocol PRN Reason: per Hypoglycemia Standing Ord. Hydralazine HCl (Hydralazine Hcl 50 Mg Tablet) 100 mg PO TID [facility]; Protocol Last Admin: 07/01/25 20:51 Dose: 100 mg Documented By: SCOTT Magnesium Sulfate/Dextrose (Magnesium Sulfate/D5w) 1 gm in 100 mls @ 100 mls/hr IV ONCE ONE Stop: 07/02/25 09:06 Ibuprofen (Ibuprofen 400 Mg Tablet) 400 mg PO Q6H PRN PRN Reason: Fever or Pain, Mild (Pain Scale 1-3) Insulin Human Lispro (Insulin Lispro 100 Unit/Ml 3 Ml Vial) 0 unit SUBCUT QIDACHS [facility]; Protocol Losartan Potassium (Losartan Potassium 25 Mg Tablet) 25 mg PO DAILY [facility]; Protocol Last Admin: 07/01/25 18:41 Dose: 25 mg Documented By: JACIEL Magnesium Hydroxide (Milk Of Magnesia 30 Ml Oral.Susp) 30 ml PO DAILY PRN PRN Reason: Constipation Melatonin (Melatonin 3 Mg Tablet) 6 mg PO BEDTIME PRN PRN Reason: Insomnia Last Admin: 07/01/25 20:54 Dose: 6 mg Documented By: SCOTT Metoprolol Succinate (Metoprolol Succinate Er 100 Mg Tab.Er.24h) 100 mg PO DAILY [facility]; Protocol Last Admin: 07/01/25 18:41 Dose: 100 mg Documented By: JACIEL Multivitamins/Vitamin C (Multivitamin Tablet) 1 tab PO DAILY [facility] Last Admin: 07/01/25 18:41 Dose: 1 tab Documented By: JACIEL Nicotine (Nicotine 21 Mg Patch.Td24) 21 mg TRANSDERMA DAILY PRN PRN Reason: Smoking Cessation Nicotine Polacrilex (Nicotine Polacrilex 2 Mg Gum) 2 mg BUCCAL Q2H PRN PRN Reason: Nicotine Cravings Omeprazole (Omeprazole 40 Mg Capsule.Dr) 40 mg PO DAILY@0630 [facility] Last Admin: 07/02/25 05:44 Dose: 40 mg Documented By: SCOTT Ondansetron HCl (Ondansetron Hcl 4 Mg/2 Ml Vial) 4 mg IVPUSH Q8H PRN PRN Reason: Nausea and Vomiting Oxycodone HCl (Oxycodone Hcl Immed Release 5 Mg Tablet) 5 mg PO Q6H PRN PRN Reason: Pain, Severe (Pain Scale 7-10) Pharmacy Consult (Consult Rx Etoh Phenob Im/Po) 1 each MISCELLANE ONCE PRN; Protocol PRN Reason: Consult order Pharmacy Consult (Consult Rx Anticoag Dosing) 1 each MISCELLANE DAILY PRN; Protocol PRN Reason: Consult order Phenobarbital (Phenobarbital 15 Mg Tablet) 45 mg PO BID [facility]; Protocol Stop: 07/03/25 21:01 Phenobarbital (Phenobarbital 30 Mg Tablet) 30 mg PO BID [facility]; Protocol Stop: 07/05/25 21:01 Phenobarbital (Phenobarbital 30 Mg Tablet) 30 mg PO DAILY [facility]; Protocol Stop: 07/07/25 09:01 Polyethylene Glycol (Polyethylene Glycol 3350 17 Gm Powd.Pack) 17 gm PO DAILY PRN PRN Reason: Constipation Sodium Chloride (0.9 % Sodium Chloride Flush 3 Ml Syringe) 3 ml IVFLUSH QSHIFT [facility] Last Admin: 07/01/25 20:55 Dose: 3 ml Documented By: SCOTT Sucralfate (Sucralfate 1 Gm Tablet) 1 gm PO QID [facility] Last Admin: 07/01/25 20:54 Dose: 1 gm Documented By: SCOTT Thiamine HCl (Thiamine Hcl 100 Mg Tablet) 100 mg PO DAILY [facility] Last Admin: 07/01/25 10:13 Dose: 100 mg Documented By: CORY Torsemide (Torsemide 20 Mg Tablet) 60 mg PO DAILY [facility]; Protocol Last Admin: 07/01/25 18:41 Dose: 60 mg Documented By: JACIEL Torsemide (Torsemide 20 Mg Tablet) 40 mg PO BEDTIME [facility]; Protocol Last Admin: 07/01/25 20:52 Dose: 40 mg Documented By: SCOTT Trazodone HCl (Trazodone Hcl 100 Mg Tablet) 100 mg PO BEDTIME [facility] Last Admin: 07/01/25 20:53 Dose: 100 mg Documented By: SCOTT Labs 07/01/25 08:05 07/02/25 06:14 Labs: Laboratory Results - last 24 hr 07/01/25 07/01/25 07/01/25 08:05 10:10 12:23 Anion Gap 20 Estim Creat Clear Calc 47.2 Estimated GFR 47 POC Glucose Random Glucose Fasting Glucose 177 H Calcium 8.3 L D Magnesium 1.7 Total Bilirubin 0.4 Direct Bilirubin 0.2 AST 84 H ALT 71 H Alkaline Phosphatase 255 H Total Creatine Kinase 87 B-Natriuretic Peptide Total Protein 6.9 Albumin 3.8 Triglycerides Cholesterol LDL Cholesterol, Calc HDL Cholesterol Lipase 32 Vitamin B12 394 Folate < 2.2 L TSH Urine Color Yellow Urine Appearance Clear Urine pH 6.5 Ur Specific [place] 1.010 Urine Protein 30 (1+) H Urine Glucose (UA) Negative Urine Ketones Negative Urine Blood Negative Urine Nitrite Negative Ur Leukocyte Esterase Negative Urine RBC 0-2 Urine WBC 0-5 Ur Squamous Epith Cells 0-2 Urine Bacteria None Seen Hyaline Casts 3-5 Urine Opiates Screen Not Detected Ur Buprenorphine Scrn Not Detected Ur Oxycodone Screen Not Detected Urine Methadone Screen Not Detected Urine Fentanyl Screen Not Detected Ur Barbiturates Screen Not Detected Ur Phencyclidine Scrn Not Detected Ur Amphetamines Screen Not Detected U Benzodiazepines Scrn Not Detected Urine Cocaine Screen Not Detected U Marijuana (THC) Screen Not Detected 07/01/25 07/02/25 07/02/25 23:42 06:14 07:37 Anion Gap 15 Estim Creat Clear Calc 55.4 Estimated GFR 57 POC Glucose 195 H 119 H Random Glucose 91 Fasting Glucose Calcium 8.2 L Magnesium 1.4 L* Total Bilirubin 0.7 Direct Bilirubin AST 66 H ALT 52 H Alkaline Phosphatase 226 H Total Creatine Kinase B-Natriuretic Peptide 215 H Total Protein 6.2 L Albumin 3.4 L Triglycerides 303 H Cholesterol 140 LDL Cholesterol, Calc 23 HDL Cholesterol 57 Lipase Vitamin B12 Folate TSH 0.20 L Urine Color Urine Appearance Urine pH Ur Specific [place] Urine Protein Urine Glucose (UA) Urine Ketones Urine Blood Urine Nitrite Ur Leukocyte Esterase Urine RBC Urine WBC Ur Squamous Epith Cells Urine Bacteria Hyaline Casts Urine Opiates Screen Ur Buprenorphine Scrn Ur Oxycodone Screen Urine Methadone Screen Urine Fentanyl Screen Ur Barbiturates Screen Ur Phencyclidine Scrn Ur Amphetamines Screen U Benzodiazepines Scrn Urine Cocaine Screen U Marijuana (THC) Screen Assessment and Plan (1) Alcohol withdrawal seizure: Status: Acute Plan Patient is a 49-year-old with current AUD, marijuana use, current cigarette smoker, poor historian, 49 years old man with past medical history significant for HFpEF, COPD on oxygen, PAD, essential hypertension, CKD stage 3, hyperlipidemia and type 2 diabetes on insulin who presented less than 2 weeks since last admission for COPD exacerbation. Was noted to have alc withdrawal seizures , started on Phenobarbiturates Alcohol withdrawal seizure Phenobarb protocol started at 10, will taper per marvin No further seisures noted - can start diet Head CT was negative for any acute intracranial pathology Fall and seizure precautions Ethyl alcohol pending Follow-up CPK we will hold aggressive hydration given HFpEF and need for diuresis Daily electrolytes and replete to goal Monitor on tele Addiction team consulted CKD stage 3 Appears to be his baseline HFpEF HTN Continue home torsemide 60 and 40 dosage Continue home meds as the patient is hypotensive with a SBP in the 170s YARELIS Nocturnal CPAP home settings Nicotine patches ordered Smoking cessation advised DVT prophylaxis with Lovenox This note is constructed using voice recognition software. While every effort has been made to ensure accuracy, plant senior manager errors may have been included. Quality Stroke Does the patient have a stroke diagnosis?: No VTE Prior VTE?: No VTE Risk Level:: Medical - low VTE Device Contraindication: N/A - Device Ordered VTE Drug Contraindication: N/A - Med Ordered
[2025-07-02] MEDS: Metoprolol Succinate ER 100 MG TAB.ER.24H PO (08:19)
[2025-07-02] MEDS: Aspirin Enteric Coated 81 MG TABLET.DR PO (08:20)
[2025-07-02] MEDS: Ferrous Sulfate 324 MG TABLET.DR PO (08:20)
[2025-07-02] MEDS: 0.9 % Sodium Chloride Flush 3 ML SYRINGE IVFLUSH ×3 (08:20→21:02)
--- NOTE | 2025-07-02 09:39 | HO.ADDICT_ITS ---
History of Present Illness Date of Service: 07/02/2025 Chief Complaint: alc withdrawal seizures Reason for Consult: AUD Sources of Information: patient interviewed and chart reviewed HPI Narrative: Patient is a 49 year old male with medical hx that includes, CKD, YARELIS, CHF, HTN, AUD, and DM. Presented to [facility] concerned that he may have experienced a seizure at home as he woke up on the couch and had bit his tongue and lip and vomited on himself. Pheno started in ED for concern of alcohol withdrawal. Patient was recently admitted for alcohol withdrawal 06/13-06/16. Patient seen in room 469. He was asleep upon approach, but work easily to voice. He is pleasant and engaged in interview. States he has been drinking maybe 2 days a week , and drinks btwn 2-3 glasses of vodka and orange juice. Denies any history of withdrawal sx at home, but does acknowledge recent admission for withdrawal. Denies any history of TARYN or other treatment for AUD Initially reporting he felt his drinking was normal , however later in the conversation stated that he felt he may need to cut down. He appears overall comfortable. No withdrawal sx reported or noted He does state that he feels unsteady on his feet--ED note states that he was reporting vertigo as well. Labs reviewed, elevated LFTS and low mag (1.4) which has been repleted, pending follow up labs Medical Evaluation Reviewed: Yes Review of Systems Constitutional: Reports as per HPI Diagnostics Vital Signs (24Hr): Vital Signs - 24 hr 07/01/25 09:56 07/01/25 12:19 07/01/25 16:00 Temperature 97.8 F 97.8 F Pulse Rate 96 89 100 Respiratory Rate 18 13 16 Blood Pressure 178/90 H 146/78 H 175/91 H Pulse Oximetry 99 97 Oxygen Delivery Method Nasal Cannula Room Air Room Air Oxygen Flow Rate 3 07/01/25 18:41 07/01/25 18:41 07/01/25 19:15 Temperature 99.1 F Pulse Rate 100 100 Respiratory Rate 18 Blood Pressure 175/91 H 175/91 H 165/82 H Pulse Oximetry 95 Oxygen Delivery Method Room Air Oxygen Flow Rate 07/01/25 20:51 07/01/25 20:52 07/01/25 23:17 Temperature 99 F Pulse Rate 77 Respiratory Rate 18 Blood Pressure 165/82 H 165/82 H 126/80 Pulse Oximetry 92 Oxygen Delivery Method Room Air Oxygen Flow Rate 07/02/25 06:09 07/02/25 07:39 07/02/25 08:19 Temperature 98.8 F 97.6 F Pulse Rate 72 70 70 Respiratory Rate 16 20 Blood Pressure 131/74 145/72 H 145/72 H Pulse Oximetry 96 96 Oxygen Delivery Method Nasal Cannula Room Air Oxygen Flow Rate 4 BMI result Body Mass Index 21.6 Labs 07/01/25 08:05 07/02/25 06:14 Labs: Laboratory Results - last 48 hr 07/01/25 07/01/25 07/01/25 08:05 10:10 12:23 WBC 9.2 RBC 4.02 L Hgb 11.6 L Hct 34.1 L MCV 84.8 MCH 28.9 MCHC 34.0 RDW 18.9 H Plt Count 309 D MPV 9.2 L Immature Gran % (Auto) 0.4 Neut % (Auto) 76.9 H Lymph % (Auto) 15.9 L Zavala % (Auto) 5.5 Eos % (Auto) 0.9 Baso % (Auto) 0.4 Lymph # (Auto) 1.5 Zavala # (Auto) 0.5 Eos # (Auto) 0.1 Baso # (Auto) 0.0 Abs Immat Gran (auto) 0.04 H Absolute Neuts (auto) 7.0 Absolute Nucleated RBC 0.000 Nucleated RBC % (auto) 0.0 Sodium 144 Potassium 4.2 Chloride 100 Carbon Dioxide 28 Anion Gap 20 BUN 26 H Creatinine 1.56 H Estim Creat Clear Calc 47.2 Estimated GFR 47 POC Glucose Random Glucose Fasting Glucose 177 H Calcium 8.3 L D Magnesium 1.7 Total Bilirubin 0.4 Direct Bilirubin 0.2 AST 84 H ALT 71 H Alkaline Phosphatase 255 H Total Creatine Kinase 87 B-Natriuretic Peptide Total Protein 6.9 Albumin 3.8 Triglycerides Cholesterol LDL Cholesterol, Calc HDL Cholesterol Lipase 32 Vitamin B12 394 Folate < 2.2 L TSH Urine Color Yellow Urine Appearance Clear Urine pH 6.5 Ur Specific [place] 1.010 Urine Protein 30 (1+) H Urine Glucose (UA) Negative Urine Ketones Negative Urine Blood Negative Urine Nitrite Negative Ur Leukocyte Esterase Negative Urine RBC 0-2 Urine WBC 0-5 Ur Squamous Epith Cells 0-2 Urine Bacteria None Seen Hyaline Casts 3-5 Urine Opiates Screen Not Detected Ur Buprenorphine Scrn Not Detected Ur Oxycodone Screen Not Detected Urine Methadone Screen Not Detected Urine Fentanyl Screen Not Detected Ur Barbiturates Screen Not Detected Ur Phencyclidine Scrn Not Detected Ur Amphetamines Screen Not Detected U Benzodiazepines Scrn Not Detected Urine Cocaine Screen Not Detected U Marijuana (THC) Screen Not Detected 07/01/25 07/02/25 07/02/25 23:42 06:14 07:37 WBC RBC Hgb Hct MCV MCH MCHC RDW Plt Count MPV Immature Gran % (Auto) Neut % (Auto) Lymph % (Auto) Zavala % (Auto) Eos % (Auto) Baso % (Auto) Lymph # (Auto) [place]ala # (Auto) Eos # (Auto) Baso # (Auto) Abs Immat Gran (auto) Absolute Neuts (auto) Absolute Nucleated RBC Nucleated RBC % (auto) Sodium 142 Potassium 3.6 Chloride 101 Carbon Dioxide 30 H Anion Gap 15 BUN 14 Creatinine 1.33 Estim Creat Clear Calc 55.4 Estimated GFR 57 POC Glucose 195 H 119 H Random Glucose 91 Fasting Glucose Calcium 8.2 L Magnesium 1.4 L* Total Bilirubin 0.7 Direct Bilirubin AST 66 H ALT 52 H Alkaline Phosphatase 226 H Total Creatine Kinase B-Natriuretic Peptide 215 H Total Protein 6.2 L Albumin 3.4 L Triglycerides 303 H Cholesterol 140 LDL Cholesterol, Calc 23 HDL Cholesterol 57 Lipase Vitamin B12 Folate TSH 0.20 L Urine Color Urine Appearance Urine pH Ur Specific [place] Urine Protein Urine Glucose (UA) Urine Ketones Urine Blood Urine Nitrite Ur Leukocyte Esterase Urine RBC Urine WBC Ur Squamous Epith Cells Urine Bacteria Hyaline Casts Urine Opiates Screen Ur Buprenorphine Scrn Ur Oxycodone Screen Urine Methadone Screen Urine Fentanyl Screen Ur Barbiturates Screen Ur Phencyclidine Scrn Ur Amphetamines Screen U Benzodiazepines Scrn Urine Cocaine Screen U Marijuana (THC) Screen Imaging Radiology Impressions: ITS Impressions Head CT 07/01/25 07:24 IMPRESSION: No acute fracture, bony calvarium. No acute intracranial hemorrhage. Stable brain. Electronically signed by: Jayden Camacho MD 07/01/2025 09:04 AM EDT Mental Status Exam Mental Status Exam Level of Consciousness: Awake, Appropriate and Alert Patient Behavior: Appropriate and Talkative Affect Description: Calm Speech Pattern: Clear Hallucinations: None Thought Process: Intact Thought Content: positive for [place] Judgement: Good Medications Medications Current Medications Acetaminophen (Acetaminophen 325 Mg Tablet) 650 mg PO Q6H PRN PRN Reason: Pain, Mild 1-3,fever,headache Albuterol Sulfate (Albuterol Sulfate (0.083%) 2.5 Mg/3 Ml Vial.Neb) 2.5 mg INHALE Q6H PRN PRN Reason: Wheezing Albuterol/Ipratropium (Albuterol/Iprat 2.5/0.5mg 3 Ml Ampul.Neb) 3 ml INHALE Q4H PRN PRN Reason: Shortness of Breath/Wheezing Amlodipine Besylate (Amlodipine Besylate 10 Mg Tablet) 10 mg PO DAILY [facility]; Protocol Last Admin: 07/02/25 08:19 Dose: 10 mg Aspirin (Aspirin Enteric Coated 81 Mg Tablet.) 81 mg PO DAILY [facility] Last Admin: 07/02/25 08:20 Dose: 81 mg Benzonatate (Benzonatate 100 Mg Capsule) 100 mg PO TID PRN PRN Reason: Cough Calcium Carbonate (Calcium Carbonate 750 Mg Tab.Chew) 750 mg PO Q4H PRN PRN Reason: Heartburn Dextrose (Dextrose 50 % 25 Gm/50 Ml Syringe) 25 gm IVPUSH Q15M PRN; Protocol PRN Reason: per Hypoglycemia Standing Ord. Enoxaparin Sodium (Enoxaparin Sodium 40 Mg/0.4 Ml Syringe) 40 mg SUBCUT Q24H [facility] Last Admin: 07/02/25 08:41 Dose: 40 mg Escitalopram Oxalate (Escitalopram Oxalate 20 Mg Tablet) 20 mg PO DAILY [facility] Last Admin: 07/02/25 08:19 Dose: 20 mg Ferrous Sulfate (Ferrous Sulfate 324 Mg Tablet.) 324 mg PO DAILY [facility] Last Admin: 07/02/25 08:20 Dose: 324 mg Gabapentin (Gabapentin 300 Mg Capsule) 300 mg PO TID [facility] Last Admin: 07/02/25 08:19 Dose: 300 mg Glucose (Glucose Gel 15 Gm Gel..Gram.) 15 gm PO Q15M PRN; Protocol PRN Reason: per Hypoglycemia Standing Ord. Hydralazine HCl (Hydralazine Hcl 50 Mg Tablet) 100 mg PO TID [facility]; Protocol Last Admin: 07/02/25 08:19 Dose: 100 mg Ibuprofen (Ibuprofen 400 Mg Tablet) 400 mg PO Q6H PRN PRN Reason: Fever or Pain, Mild (Pain Scale 1-3) Insulin Human Lispro (Insulin Lispro 100 Unit/Ml 3 Ml Vial) 0 unit SUBCUT QIDACHS [facility]; Protocol Losartan Potassium (Losartan Potassium 25 Mg Tablet) 25 mg PO DAILY [facility]; Protocol Last Admin: 07/02/25 08:19 Dose: 25 mg Magnesium Hydroxide (Milk Of Magnesia 30 Ml Oral.Susp) 30 ml PO DAILY PRN PRN Reason: Constipation Melatonin (Melatonin 3 Mg Tablet) 6 mg PO BEDTIME PRN PRN Reason: Insomnia Last Admin: 07/01/25 20:54 Dose: 6 mg Metoprolol Succinate (Metoprolol Succinate Er 100 Mg Tab.Er.24h) 100 mg PO DAILY [facility]; Protocol Last Admin: 07/02/25 08:19 Dose: 100 mg Multivitamins/Vitamin C (Multivitamin Tablet) 1 tab PO DAILY [facility] Last Admin: 07/02/25 08:19 Dose: 1 tab Nicotine (Nicotine 21 Mg Patch.Td24) 21 mg TRANSDERMA DAILY PRN PRN Reason: Smoking Cessation Nicotine Polacrilex (Nicotine Polacrilex 2 Mg Gum) 2 mg BUCCAL Q2H PRN PRN Reason: Nicotine Cravings Omeprazole (Omeprazole 40 Mg Capsule.Dr) 40 mg PO DAILY@0630 [facility] Last Admin: 07/02/25 05:44 Dose: 40 mg Ondansetron HCl (Ondansetron Hcl 4 Mg/2 Ml Vial) 4 mg IVPUSH Q8H PRN PRN Reason: Nausea and Vomiting Oxycodone HCl (Oxycodone Hcl Immed Release 5 Mg Tablet) 5 mg PO Q6H PRN PRN Reason: Pain, Severe (Pain Scale 7-10) Pharmacy Consult (Consult Rx Etoh Phenob Im/Po) 1 each MISCELLANE ONCE PRN; Protocol PRN Reason: Consult order Pharmacy Consult (Consult Rx Anticoag Dosing) 1 each MISCELLANE DAILY PRN; Protocol PRN Reason: Consult order Phenobarbital (Phenobarbital 15 Mg Tablet) 45 mg PO BID [facility]; Protocol Stop: 07/03/25 21:01 Last Admin: 07/02/25 08:19 Dose: 45 mg Phenobarbital (Phenobarbital 30 Mg Tablet) 30 mg PO BID [facility]; Protocol Stop: 07/05/25 21:01 Phenobarbital (Phenobarbital 30 Mg Tablet) 30 mg PO DAILY [facility]; Protocol Stop: 07/07/25 09:01 Polyethylene Glycol (Polyethylene Glycol 3350 17 Gm Powd.Pack) 17 gm PO DAILY PRN PRN Reason: Constipation Sodium Chloride (0.9 % Sodium Chloride Flush 3 Ml Syringe) 3 ml IVFLUSH QSHIFT [facility] Last Admin: 07/02/25 08:20 Dose: 3 ml Sucralfate (Sucralfate 1 Gm Tablet) 1 gm PO QID [facility] Last Admin: 07/02/25 08:18 Dose: 1 gm Thiamine HCl (Thiamine Hcl 100 Mg Tablet) 100 mg PO DAILY [facility] Last Admin: 07/02/25 08:19 Dose: 100 mg Torsemide (Torsemide 20 Mg Tablet) 60 mg PO DAILY [facility]; Protocol Last Admin: 07/02/25 08:19 Dose: 60 mg Torsemide (Torsemide 20 Mg Tablet) 40 mg PO BEDTIME [facility]; Protocol Last Admin: 07/01/25 20:52 Dose: 40 mg Trazodone HCl (Trazodone Hcl 100 Mg Tablet) 100 mg PO BEDTIME [facility] Last Admin: 07/01/25 20:53 Dose: 100 mg Allergies Allergies Allergy/AdvReac Type Severity Reaction Status Date / Time dulaglutide (From [facility]) Allergy Unknown Verified 07/01/25 07:51 metformin (METFORMIN) AdvReac Mild DIARRHEA, Verified 07/01/25 07:51 nausea and vomiting Assessment & Plan Assessment & Plan (1) Alcohol use disorder, moderate, dependence: Status: Acute Code(s): F10.20 - Alcohol dependence, uncomplicated Assessment and Plan: * pheno taper in place and withdrawal well managed * continue PO thiamine once IV complete * private duty nurse to follow up and discuss resources including TARYN Total time managing care of this patient today _30___ minutes. [facility] Past Medical History Medical History Tobacco use CKD (chronic kidney disease) stage 1, GFR 90 ml/min or greater YARELIS (obstructive sleep apnea) Acute on chronic diastolic (congestive) heart failure KELVIN (acute kidney injury) Chronic heart failure with preserved ejection fraction (HFpEF) Depression Acute on chronic anemia Anxiety HLD (hyperlipidemia) Diabetes HTN (hypertension) Asthma PAD (peripheral artery disease) Family History Family History Father Alzheimer disease CAD (coronary artery disease) Surgical History Surgical History History of esophagogastroduodenoscopy S/P angiogram of extremity Social History Social History Household Members: None Household Members Other:: 4 Housing: Apartment Do you presently have visiting nurse or other home services: Yes ([facility]) Unable to assess alcohol history related to: Unknown Alcohol intake: former Comment: pt is independent in room Patient Tobacco Use Status: Current everyday Tobacco user Tobacco use type: Cigarette Cigarette Packs Per Day: 1 Cigarettes Per Day: 10 Years Smoked: 33 years e-Cigarette/Vaping Use: Currently Using Second Hand Smoke Exposure: No Substance Use Type: Marijuana Advance Directives Date on File: 06/21/21 service: No Current occupational status: disabled
[2025-07-02 11:23] LABS: Glucose, Whole Blood 133 mg/dL (60-115)
[2025-07-02 16:31] LABS: Glucose, Whole Blood 116 mg/dL (60-115)
--- NOTE | 2025-07-02 18:23 | MHC.RECOVRN ---
TW met with the patient in to discuss current alcohol use and concerns related to increased risk of alcohol use and related problems.? On approach pt was sitting in bed watching TV. He reported being hungry and waiting for dinner. Pt reports feeling ?a bit woozy?. Pt denies additional withdrawal symptoms and is agreeable to meeting with TW.? When asked about his current use pt seems confused and asked, ?if that's what they say?. TW clarified the question and asked pt, how much are you drinking when you do drink to which pt responded, ?maybe a pint, maybe 2 times a week?. Pt reports wanting to cut down and states his twin brother as a barrier to decrease use, ?because he?s way worse than me and always wants me to drink with him?. Pt reports wanting to see his brother ?anytime I can because he?s my other half?. Pt also reports using marijuana daily which he purchases from his twin brother.? Pt had a female visitor enter the room and identified her as his girlfriend. Pt was agreeable to continuing assessment with girlfriend present. Girlfriend reports pt is drinking everyday and is ?just as bad? as his twin brother to which pt denies. Girlfriend encouraged pt to seek additional help and treatment related to AUD.? Pt identifies that his alcohol use has become problematic and reports wanting help to stop.? Discussed risk and reduction strategies including TARYN and safer drinking strategies should he decide to return to use such drinking below the recommended limit, eating before drinking alcohol, and drinking water between beverages containing alcohol.? Provided pt with written resources including additional recovery support options, recovery coaching, and pathways to recovery.? Pt encouraged to notify family of his desire to stop use, primarily his twin brother. Pt is agreeable to TARYN and would like to start Naltrexone and accepted referral for recovery coaching. Pt declines? outpatient appt for treatment related to AUD at this time.? ? Pt was provided with TW?s contact information if questions or concerns arise. Pt denies further questions or concerns at this time.?TW to schedule appt w/ [facility] tomorrow, during business hours. Information relayed to Rachel Fernandez NP for TARYN initiation.?
[2025-07-02 20:16] LABS: Glucose, Whole Blood 354 mg/dL (60-115)
[2025-07-02] MEDS: Albuterol Sulfate (0.083%) 2.5 MG/3 ML VIAL.NEB INHALE (23:38)
[2025-07-03 03:19] VITALS: BP 114/61; PULSE 79; RESP 19; TEMP 36.2; O2SAT 98
[2025-07-03 07:53] LABS: Glucose, Whole Blood 474 mg/dL (60-115)
[2025-07-03 07:57] LABS: Alanine Aminotransferase 40 U/L (0-40); Albumin Level 3.5 g/dL (3.5-5.0); Alkaline Phosphatase 229 U/L (39-117); Anion Gap 16 (12-20); Aspartate Amino Transferase 41 U/L (5-37); Blood Urea Nitrogen 22 mg/dL (9-16); Calcium 8.0 mg/dL (8.4-10.2); Carbon Dioxide 24 mmol/L (22-29); Chloride 94 mmol/L (96-108); Creatinine Clr Calc Pharmacy 33.6; Estimated Glomerular Filt Rate 32; Magnesium 1.4 mg/dL (1.6-2.6); Potassium 4.0 mmol/L (3.3-5.1); Sodium 130 mmol/L (135-145); Total Protein 6.6 g/dL (6.5-8.0)
[2025-07-03 08:00] VITALS: BP 123/63; PULSE 74; RESP 18; TEMP 36.2; O2SAT 97
[2025-07-03] MEDS: Metoprolol Succinate ER 100 MG TAB.ER.24H PO (08:35)
[2025-07-03] MEDS: Aspirin Enteric Coated 81 MG TABLET.DR PO (08:36)
[2025-07-03] MEDS: Ferrous Sulfate 324 MG TABLET.DR PO (08:36)
[2025-07-03] MEDS: 0.9 % Sodium Chloride Flush 3 ML SYRINGE IVFLUSH ×3 (08:38→19:52)
[2025-07-03 08:49] LABS: Hemoglobin A1C 188.5618 umol/L; Total Hemoglobin (HGBA1C) 3009.3732 umol/L
--- NOTE | 2025-07-03 08:55 | P.PNIM_ITS ---
Subjective Subjective Date of Service: 07/03/25 Interval History: Patient appears to be hyperglycemic-initiated insulin Patient appears to have KELVIN-likely prerenal Reports good response to phenobarb protocol for alcohol withdrawal Review of Systems Review of Systems: Yes all other systems are reviewed and are negative Physical Exam 2 Exam: Exam: General: AOx3, no acute distress Resp: CTA bilaterally though diminished CVS: S1, S2, RRR GI: +BS, NT, no distention Vital Signs: Vital Signs: Last Vital Signs Temp 97.1 F 07/03/25 08:00 Pulse 74 07/03/25 08:00 Resp 18 07/03/25 08:00 BP 123/63 07/03/25 08:00 Pulse Ox 97 07/03/25 08:00 O2 Del Method Room Air 07/03/25 08:00 O2 Flow Rate 2 07/03/25 03:19 BMI result Body Mass Index 21.6 Objective Data Active Medications Acetaminophen (Acetaminophen 325 Mg Tablet) 650 mg PO Q6H PRN PRN Reason: Pain, Mild 1-3,fever,headache Albuterol Sulfate (Albuterol Sulfate (0.083%) 2.5 Mg/3 Ml Vial.Neb) 2.5 mg INHALE Q6H PRN PRN Reason: Wheezing Last Admin: 07/02/25 23:38 Dose: 2.5 mg Documented By: BARBARA Albuterol/Ipratropium (Albuterol/Iprat 2.5/0.5mg 3 Ml Ampul.Neb) 3 ml INHALE Q4H PRN PRN Reason: Shortness of Breath/Wheezing Amlodipine Besylate (Amlodipine Besylate 10 Mg Tablet) 10 mg PO DAILY [facility]; Protocol Last Admin: 07/03/25 08:36 Dose: 10 mg Documented By: BART Aspirin (Aspirin Enteric Coated 81 Mg Tablet.) 81 mg PO DAILY [facility] Last Admin: 07/03/25 08:36 Dose: 81 mg Documented By: BART Benzonatate (Benzonatate 100 Mg Capsule) 100 mg PO TID PRN PRN Reason: Cough Last Admin: 07/03/25 02:54 Dose: 100 mg Documented By: SCOTT Calcium Carbonate (Calcium Carbonate 750 Mg Tab.Chew) 750 mg PO Q4H PRN PRN Reason: Heartburn Dextrose (Dextrose 50 % 25 Gm/50 Ml Syringe) 25 gm IVPUSH Q15M PRN; Protocol PRN Reason: per Hypoglycemia Standing Ord. Dextrose (Dextrose 50 % 25 Gm/50 Ml Syringe) 25 gm IVPUSH Q15M PRN; Protocol PRN Reason: per Hypoglycemia Standing Ord. Enoxaparin Sodium (Enoxaparin Sodium 40 Mg/0.4 Ml Syringe) 40 mg SUBCUT Q24H [facility] Last Admin: 07/03/25 08:36 Dose: 40 mg Documented By: BART Escitalopram Oxalate (Escitalopram Oxalate 20 Mg Tablet) 20 mg PO DAILY [facility] Last Admin: 07/03/25 08:36 Dose: 20 mg Documented By: BART Ferrous Sulfate (Ferrous Sulfate 324 Mg Tablet.Dr) 324 mg PO DAILY [facility] Last Admin: 07/03/25 08:36 Dose: 324 mg Documented By: BART Gabapentin (Gabapentin 300 Mg Capsule) 300 mg PO TID [facility] Last Admin: 07/03/25 08:36 Dose: 300 mg Documented By: BART Glucose (Glucose Gel 15 Gm Gel..Gram.) 15 gm PO Q15M PRN; Protocol PRN Reason: per Hypoglycemia Standing Ord. Glucose (Glucose Gel 15 Gm Gel..Gram.) 15 gm PO Q15M PRN; Protocol PRN Reason: per Hypoglycemia Standing Ord. Hydralazine HCl (Hydralazine Hcl 50 Mg Tablet) 100 mg PO TID [facility]; Protocol Last Admin: 07/03/25 08:36 Dose: 100 mg Documented By: BART Sodium Chloride (Ns) 1,000 mls @ 100 mls/hr IVCONT .Q10H [facility] Last Admin: 07/03/25 08:47 Dose: 100 mls/hr Documented By: BART Ibuprofen (Ibuprofen 400 Mg Tablet) 400 mg PO Q6H PRN PRN Reason: Fever or Pain, Mild (Pain Scale 1-3) Insulin Human Lispro (Insulin Lispro 100 Unit/Ml 3 Ml Vial) 0 unit SUBCUT QIDACHS [facility]; Protocol Last Admin: 07/03/25 08:37 Dose: 10 unit Documented By: BART Insulin Human Lispro (Insulin Lispro 100 Unit/Ml 3 Ml Vial) 5 unit SUBCUT DAILY@0730 [facility] Last Admin: 07/03/25 08:38 Dose: 5 unit Documented By: BART Losartan Potassium (Losartan Potassium 25 Mg Tablet) 25 mg PO DAILY [facility]; Protocol Last Admin: 07/03/25 08:36 Dose: 25 mg Documented By: BART Magnesium Hydroxide (Milk Of Magnesia 30 Ml Oral.Susp) 30 ml PO DAILY PRN PRN Reason: Constipation Melatonin (Melatonin 3 Mg Tablet) 6 mg PO BEDTIME PRN PRN Reason: Insomnia Last Admin: 07/03/25 01:32 Dose: 6 mg Documented By: SCOTT Metoprolol Succinate (Metoprolol Succinate Er 100 Mg Tab.Er.24h) 100 mg PO DAILY [facility]; Protocol Last Admin: 07/03/25 08:35 Dose: 100 mg Documented By: BART Multivitamins/Vitamin C (Multivitamin Tablet) 1 tab PO DAILY [facility] Last Admin: 07/03/25 08:36 Dose: 1 tab Documented By: BART Nicotine (Nicotine 21 Mg Patch.Td24) 21 mg TRANSDERMA DAILY PRN PRN Reason: Smoking Cessation Nicotine Polacrilex (Nicotine Polacrilex 2 Mg Gum) 2 mg BUCCAL Q2H PRN PRN Reason: Nicotine Cravings Omeprazole (Omeprazole 40 Mg Capsule.Dr) 40 mg PO DAILY@0630 [facility] Last Admin: 07/03/25 06:18 Dose: 40 mg Documented By: SCOTT Ondansetron HCl (Ondansetron Hcl 4 Mg/2 Ml Vial) 4 mg IVPUSH Q8H PRN PRN Reason: Nausea and Vomiting Oxycodone HCl (Oxycodone Hcl Immed Release 5 Mg Tablet) 5 mg PO Q6H PRN PRN Reason: Pain, Severe (Pain Scale 7-10) Pharmacy Consult (Consult Rx Etoh Phenob Im/Po) 1 each MISCELLANE ONCE PRN; Protocol PRN Reason: Consult order Pharmacy Consult (Consult Rx Anticoag Dosing) 1 each MISCELLANE DAILY PRN; Protocol PRN Reason: Consult order Phenobarbital (Phenobarbital 15 Mg Tablet) 45 mg PO BID [facility]; Protocol Stop: 07/03/25 21:01 Last Admin: 07/03/25 08:36 Dose: 45 mg Documented By: BART Phenobarbital (Phenobarbital 30 Mg Tablet) 30 mg PO BID [facility]; Protocol Stop: 07/05/25 21:01 Phenobarbital (Phenobarbital 30 Mg Tablet) 30 mg PO DAILY [facility]; Protocol Stop: 07/07/25 09:01 Polyethylene Glycol (Polyethylene Glycol 3350 17 Gm Powd.Pack) 17 gm PO DAILY PRN PRN Reason: Constipation Sodium Chloride (0.9 % Sodium Chloride Flush 3 Ml Syringe) 3 ml IVFLUSH QSHIFT [facility] Last Admin: 07/03/25 08:38 Dose: 3 ml Documented By: BART Sucralfate (Sucralfate 1 Gm Tablet) 1 gm PO QID [facility] Last Admin: 07/03/25 08:36 Dose: 1 gm Documented By: BART Thiamine HCl (Thiamine Hcl 100 Mg Tablet) 100 mg PO DAILY [facility] Last Admin: 07/03/25 08:36 Dose: 100 mg Documented By: BART Torsemide (Torsemide 20 Mg Tablet) 60 mg PO DAILY [facility]; Protocol Last Admin: 07/03/25 08:35 Dose: 60 mg Documented By: BART Torsemide (Torsemide 20 Mg Tablet) 40 mg PO BEDTIME [facility]; Protocol Last Admin: 07/02/25 21:00 Dose: 40 mg Documented By: SCOTT Trazodone HCl (Trazodone Hcl 100 Mg Tablet) 100 mg PO BEDTIME [facility] Last Admin: 07/02/25 21:01 Dose: 100 mg Documented By: SCOTT Labs 07/01/25 08:05 07/03/25 15:37 Labs: Laboratory Results - last 24 hr 07/02/25 07/02/25 07/02/25 11:07 15:43 19:57 Hold Purple Top Anion Gap Estim Creat Clear Calc Estimated GFR POC Glucose 133 H 116 H 354 H* Random Glucose Estimat Average Glucose Hemoglobin A1c % Calcium Magnesium Total Bilirubin AST ALT Alkaline Phosphatase Total Protein Albumin 07/03/25 07/03/25 06:31 07:46 Hold Purple Top SEE NOTE Anion Gap 16 Estim Creat Clear Calc 33.6 Estimated GFR 32 POC Glucose 474 H* Random Glucose 484 H* Estimat Average Glucose 180 Hemoglobin A1c % 7.9 H Calcium 8.0 L Magnesium 1.4 L* Total Bilirubin 0.4 AST 41 H ALT 40 Alkaline Phosphatase 229 H Total Protein 6.6 Albumin 3.5 Assessment and Plan (1) Alcohol withdrawal seizure: Status: Acute Plan Patient is a 49-year-old with current AUD, marijuana use, current cigarette smoker, poor historian, 49 years old man with past medical history significant for HFpEF, COPD on oxygen, PAD, essential hypertension, CKD stage 3, hyperlipidemia and type 2 diabetes on insulin who presented less than 2 weeks since last admission for COPD exacerbation. Was noted to have alc withdrawal seizures , started on Phenobarbiturates Alcohol withdrawal seizure Phenobarb protocol to be continued Head CT was negative for any acute intracranial pathology Follow-up CPK we will hold aggressive hydration given HFpEF and need for diuresis Daily electrolytes and replete to goal Monitor on tele Addiction team consulted KELVIN on CKD stage 3 Likely prerenal-we will hydrate and recheck in the a.m. If not improving-we will scan for bilateral renal intra renal pathology HFpEF HTN Continue home torsemide 60 and 40 dosage Continue home meds as the patient is hypotensive with a SBP in the 170s YARELIS Nocturnal CPAP home settings Nicotine patches ordered Smoking cessation advised DVT prophylaxis with Lovenox This note is constructed using voice recognition software. While every effort has been made to ensure accuracy, sales representative health insurance errors may have been included. Quality Stroke Does the patient have a stroke diagnosis?: No VTE Prior VTE?: No VTE Risk Level:: Medical - low VTE Device Contraindication: N/A - Device Ordered VTE Drug Contraindication: N/A - Med Ordered
[2025-07-03 09:05] LABS: Alcohol, Ethyl Urine Screen POSITIVE
[2025-07-03 10:18] LABS: Glucose, Whole Blood 282 mg/dL (60-115)
--- NOTE | 2025-07-03 10:43 | MHC.CM.PN ---
CM MET W/PT PER REQUEST, PT REPORTS HE WOULD LIKE [facility] CM TO SPEAK W/HIS [employer] HERACLIO SMILEY IF SHE CONTACTS US, CM WILL CONT TO FOLLOW.
[2025-07-03] MEDS: Nicotine 21 MG PATCH.TD24 TRANSDERMA (10:49)
[2025-07-03 11:18] LABS: Glucose, Whole Blood 198 mg/dL (60-115)
[2025-07-03 11:35] VITALS: BP 103/57; PULSE 77; RESP 18; TEMP 36.4; O2SAT 98
[2025-07-03 14:04] LABS: Glucose, Whole Blood 74 mg/dL (60-115)
[2025-07-03 15:18] LABS: Glucose, Whole Blood 132 mg/dL (60-115)
[2025-07-03 15:39] VITALS: BP 98/57; PULSE 71; RESP 18; TEMP 36.1; O2SAT 98
[2025-07-03 16:10] LABS: Glucose, Whole Blood 151 mg/dL (60-115)
[2025-07-03 16:13] VITALS: BP 111/59
[2025-07-03 16:15] LABS: Anion Gap 14 (12-20); Blood Urea Nitrogen 24 mg/dL (9-16); Calcium 7.7 mg/dL (8.4-10.2); Carbon Dioxide 23 mmol/L (22-29); Chloride 97 mmol/L (96-108); Creatinine Clr Calc Pharmacy 33.8; Estimated Glomerular Filt Rate 32; Potassium 4.4 mmol/L (3.3-5.1); Sodium 130 mmol/L (135-145)
[2025-07-03 19:14] VITALS: BP 102/60; PULSE 75; RESP 18; TEMP 36.6; O2SAT 98
[2025-07-03 20:00] LABS: Glucose, Whole Blood 348 mg/dL (60-115)
[2025-07-03] MEDS: Insulin Glargine,Hum.rec.anlog 100 UNIT/ML 10 ML VIAL 15 UNIT SUBCUT (20:08)
[2025-07-03 23:57] LABS: Glucose, Whole Blood 178 mg/dL (60-115)
[2025-07-04] VITALS (9 sets, daily range): BP systolic 105–129; BP diastolic 56–67; PULSE 60–83; RESP 16–18; TEMP 36.1–36.6; O2SAT 92–98
[2025-07-04 03:19] LABS: Glucose, Whole Blood 61 mg/dL (60-115)
[2025-07-04 03:36] LABS: Glucose, Whole Blood 59 mg/dL (60-115)
[2025-07-04 04:00] LABS: Glucose, Whole Blood 105 mg/dL (60-115)
[2025-07-04 04:28] LABS: Glucose, Whole Blood 139 mg/dL (60-115)
[2025-07-04 04:52] LABS: Glucose, Whole Blood 157 mg/dL (60-115)
--- NOTE | 2025-07-04 04:52 | PC.NURSE ---
This RN responded to call harper at approx [phone]. Patient reported feeling that his sugar was low, and that he just feels funny . This RN checked POC blood sugar and result was 61, see chemistry. Patient remains A&Ox4. [place] juice and turkey sandwich provided per patient request. Recheck POC in 15 minutes result 59. Patient sweaty but still A&O x4, given another orange juice x2, recheck POC after 15 min 105. POC recheck after 15 min 139, next POC recheck after another 15 min 157. Patient reports feeling much better, Primary RN notified. Patient resting comfortably in recliner, call harper within reach.?
[2025-07-04 07:23] LABS: Glucose, Whole Blood 282 mg/dL (60-115)
[2025-07-04 07:27] LABS: Alanine Aminotransferase 26 U/L (0-40); Albumin Level 3.1 g/dL (3.5-5.0); Alkaline Phosphatase 160 U/L (39-117); Anion Gap 15 (12-20); Aspartate Amino Transferase 29 U/L (5-37); Blood Urea Nitrogen 23 mg/dL (9-16); Calcium 7.5 mg/dL (8.4-10.2); Carbon Dioxide 21 mmol/L (22-29); Chloride 99 mmol/L (96-108); Creatinine Clr Calc Pharmacy 37.8; Estimated Glomerular Filt Rate 37; Magnesium 1.4 mg/dL (1.6-2.6); Potassium 3.6 mmol/L (3.3-5.1); Sodium 131 mmol/L (135-145); Total Protein 5.7 g/dL (6.5-8.0)
[2025-07-04] MEDS: Metoprolol Succinate ER 100 MG TAB.ER.24H PO (08:30)
[2025-07-04] MEDS: Ferrous Sulfate 324 MG TABLET.DR PO (08:32)
[2025-07-04] MEDS: Aspirin Enteric Coated 81 MG TABLET.DR PO (08:34)
[2025-07-04] MEDS: 0.9 % Sodium Chloride Flush 3 ML SYRINGE IVFLUSH ×3 (08:38→20:15)
[2025-07-04 11:48] LABS: Glucose, Whole Blood 210 mg/dL (60-115)
--- NOTE | 2025-07-04 11:56 | MHC.CM.PN ---
EMR REVIEWED, PER HOSPITALIST PLAN [facility] D/T KIDNEY PAIN AND KELVIN, CM WILL CONT TO FOLLOW DC NEEDS.
[2025-07-04] MEDS: Nicotine 21 MG PATCH.TD24 TRANSDERMA (12:13)
--- NOTE | 2025-07-04 12:16 | P.PNIM_ITS ---
Subjective Subjective Date of Service: 07/04/25 Interval History: Reports interval improvement in back pain, however not completely relieved Would like to do an ultrasound scan Reports ?I fell off the adolfo? I would like to stay sober , patient has received information about rehab places through Addiction Medicine Patient ambulating very well Physical Exam 2 Exam: Exam: General: AOx3, no acute distress Resp: CTA bilaterally though diminished CVS: S1, S2, RRR GI: +BS, NT, no distention Vital Signs: Vital Signs: Last Vital Signs Temp 97.5 F 07/04/25 12:00 Pulse 79 07/04/25 12:00 Resp 18 07/04/25 12:00 BP 129/62 07/04/25 12:00 Pulse Ox 98 07/04/25 12:00 O2 Del Method Room Air 07/04/25 12:00 O2 Flow Rate 2 07/03/25 03:19 BMI result Body Mass Index 21.6 Objective Data Active Medications Acetaminophen (Acetaminophen 325 Mg Tablet) 650 mg PO Q6H PRN PRN Reason: Pain, Mild 1-3,fever,headache Last Admin: 07/03/25 19:52 Dose: 650 mg Documented By: MEDARDO Albuterol Sulfate (Albuterol Sulfate (0.083%) 2.5 Mg/3 Ml Vial.Neb) 2.5 mg INHALE Q6H PRN PRN Reason: Wheezing Last Admin: 07/02/25 23:38 Dose: 2.5 mg Documented By: BARBARA Albuterol/Ipratropium (Albuterol/Iprat 2.5/0.5mg 3 Ml Ampul.Neb) 3 ml INHALE Q4H PRN PRN Reason: Shortness of Breath/Wheezing Amlodipine Besylate (Amlodipine Besylate 10 Mg Tablet) 10 mg PO DAILY [facility]; Protocol Last Admin: 07/04/25 08:35 Dose: 10 mg Documented By: JOLLY Aspirin (Aspirin Enteric Coated 81 Mg Tablet.) 81 mg PO DAILY [facility] Last Admin: 07/04/25 08:34 Dose: 81 mg Documented By: JOLLY Benzonatate (Benzonatate 100 Mg Capsule) 100 mg PO TID PRN PRN Reason: Cough Last Admin: 07/03/25 02:54 Dose: 100 mg Documented By: SCOTT Calcium Carbonate (Calcium Carbonate 750 Mg Tab.Chew) 750 mg PO Q4H PRN PRN Reason: Heartburn Dextrose (Dextrose 50 % 25 Gm/50 Ml Syringe) 25 gm IVPUSH Q15M PRN; Protocol PRN Reason: per Hypoglycemia Standing Ord. Dextrose (Dextrose 50 % 25 Gm/50 Ml Syringe) 25 gm IVPUSH Q15M PRN; Protocol PRN Reason: per Hypoglycemia Standing Ord. Enoxaparin Sodium (Enoxaparin Sodium 40 Mg/0.4 Ml Syringe) 40 mg SUBCUT Q24H [facility] Last Admin: 07/04/25 08:41 Dose: 40 mg Documented By: JOLLY Escitalopram Oxalate (Escitalopram Oxalate 20 Mg Tablet) 20 mg PO DAILY [facility] Last Admin: 07/04/25 08:38 Dose: 20 mg Documented By: JOLLY Ferrous Sulfate (Ferrous Sulfate 324 Mg Tablet.Dr) 324 mg PO DAILY [facility] Last Admin: 07/04/25 08:32 Dose: 324 mg Documented By: JOLLY Gabapentin (Gabapentin 300 Mg Capsule) 300 mg PO TID [facility] Last Admin: 07/04/25 08:33 Dose: 300 mg Documented By: JOLLY Glucose (Glucose Gel 15 Gm Gel..Gram.) 15 gm PO Q15M PRN; Protocol PRN Reason: per Hypoglycemia Standing Ord. Glucose (Glucose Gel 15 Gm Gel..Gram.) 15 gm PO Q15M PRN; Protocol PRN Reason: per Hypoglycemia Standing Ord. Hydralazine HCl (Hydralazine Hcl 50 Mg Tablet) 100 mg PO TID [facility]; Protocol Last Admin: 07/04/25 08:32 Dose: 100 mg Documented By: JOLLY Sodium Chloride (Ns) 1,000 mls @ 100 mls/hr IVCONT .Q10H [facility] Last Admin: 07/04/25 04:51 Dose: 100 mls/hr Documented By: MEDARDO Ibuprofen (Ibuprofen 400 Mg Tablet) 400 mg PO Q6H PRN PRN Reason: Fever or Pain, Mild (Pain Scale 1-3) Insulin Glargine (Insulin Glargine,Hum.Rec.Anlog 100 Unit/Ml 10 Ml Vial) 15 unit SUBCUT BEDTIME [facility] Last Admin: 07/03/25 20:08 Dose: 15 unit Documented By: MEDARDO Insulin Human Lispro (Insulin Lispro 100 Unit/Ml 3 Ml Vial) 0 unit SUBCUT QIDACHS [facility]; Protocol Last Admin: 07/04/25 08:29 Dose: Not Given Documented By: JOLLY Non-Admin Reason: Physician Held Med Comments: pt had low POC overnight, per md just give the scheduled 8 units Insulin Human Lispro (Insulin Lispro 100 Unit/Ml 3 Ml Vial) 8 unit SUBCUT DAILY@0730 [facility] Last Admin: 07/04/25 08:28 Dose: 8 unit Documented By: JOLLY Losartan Potassium (Losartan Potassium 25 Mg Tablet) 25 mg PO DAILY [facility]; Protocol Last Admin: 07/04/25 08:37 Dose: 25 mg Documented By: JOLLY Magnesium Hydroxide (Milk Of Magnesia 30 Ml Oral.Susp) 30 ml PO DAILY PRN PRN Reason: Constipation Melatonin (Melatonin 3 Mg Tablet) 6 mg PO BEDTIME PRN PRN Reason: Insomnia Last Admin: 07/03/25 01:32 Dose: 6 mg Documented By: SCOTT Metoprolol Succinate (Metoprolol Succinate Er 100 Mg Tab.Er.24h) 100 mg PO DAILY [facility]; Protocol Last Admin: 07/04/25 08:30 Dose: 100 mg Documented By: JOLLY Multivitamins/Vitamin C (Multivitamin Tablet) 1 tab PO DAILY [facility] Last Admin: 07/04/25 08:32 Dose: 1 tab Documented By: JOLLY Naltrexone HCl (Naltrexone Hcl 50 Mg Tablet) 25 mg PO DAILY [facility] Last Admin: 07/04/25 08:31 Dose: 25 mg Documented By: JOLLY Nicotine (Nicotine 21 Mg Patch.Td24) 21 mg TRANSDERMA DAILY PRN PRN Reason: Smoking Cessation Last Admin: 07/03/25 10:49 Dose: 21 mg Documented By: BART Nicotine Polacrilex (Nicotine Polacrilex 2 Mg Gum) 2 mg BUCCAL Q2H PRN PRN Reason: Nicotine Cravings Omeprazole (Omeprazole 40 Mg Capsule.) 40 mg PO DAILY@0630 [facility] Last Admin: 07/04/25 05:38 Dose: 40 mg Documented By: MEDARDO Ondansetron HCl (Ondansetron Hcl 4 Mg/2 Ml Vial) 4 mg IVPUSH Q8H PRN PRN Reason: Nausea and Vomiting Pharmacy Consult (Consult Rx Etoh Phenob Im/Po) 1 each MISCELLANE ONCE PRN; Protocol PRN Reason: Consult order Pharmacy Consult (Consult Rx Anticoag Dosing) 1 each MISCELLANE DAILY PRN; Protocol PRN Reason: Consult order Phenobarbital (Phenobarbital 30 Mg Tablet) 30 mg PO BID [facility]; Protocol Stop: 07/05/25 21:01 Last Admin: 07/04/25 08:35 Dose: 30 mg Documented By: JOLLY Phenobarbital (Phenobarbital 30 Mg Tablet) 30 mg PO DAILY [facility]; Protocol Stop: 07/07/25 09:01 Polyethylene Glycol (Polyethylene Glycol 3350 17 Gm Powd.Pack) 17 gm PO DAILY PRN PRN Reason: Constipation Sodium Chloride (0.9 % Sodium Chloride Flush 3 Ml Syringe) 3 ml IVFLUSH QSHIFT [facility] Last Admin: 07/04/25 08:38 Dose: 3 ml Documented By: JOLLY Sucralfate (Sucralfate 1 Gm Tablet) 1 gm PO QID [facility] Last Admin: 07/04/25 08:53 Dose: 1 gm Documented By: JOLLY Thiamine HCl (Thiamine Hcl 100 Mg Tablet) 100 mg PO DAILY [facility] Last Admin: 07/04/25 08:30 Dose: 100 mg Documented By: JOLLY Torsemide (Torsemide 20 Mg Tablet) 60 mg PO DAILY [facility]; Protocol Last Admin: 07/04/25 08:34 Dose: 60 mg Documented By: JOLLY Torsemide (Torsemide 20 Mg Tablet) 40 mg PO BEDTIME [facility]; Protocol Last Admin: 07/03/25 19:50 Dose: 40 mg Documented By: MEDARDO Trazodone HCl (Trazodone Hcl 100 Mg Tablet) 100 mg PO BEDTIME [facility] Last Admin: 07/03/25 19:49 Dose: 100 mg Documented By: MEDARDO Labs 07/01/25 08:05 07/04/25 06:38 Labs: Laboratory Results - last 24 hr 07/03/25 07/03/25 07/03/25 14:00 15:14 15:37 Anion Gap 14 Estim Creat Clear Calc 33.8 Estimated GFR 32 POC Glucose 74 132 H Random Glucose 130 H Calcium 7.7 L Magnesium Total Bilirubin AST ALT Alkaline Phosphatase Total Protein Albumin 07/03/25 07/03/25 07/03/25 16:00 19:55 22:03 Anion Gap Estim Creat Clear Calc Estimated GFR POC Glucose 151 H 348 H 178 H Random Glucose Calcium Magnesium Total Bilirubin AST ALT Alkaline Phosphatase Total Protein Albumin 07/04/25 07/04/25 07/04/25 03:11 03:31 03:57 Anion Gap Estim Creat Clear Calc Estimated GFR POC Glucose 61 59 L* 105 Random Glucose Calcium Magnesium Total Bilirubin AST ALT Alkaline Phosphatase Total Protein Albumin 07/04/25 07/04/25 07/04/25 04:25 04:48 06:38 Anion Gap 15 Estim Creat Clear Calc 37.8 Estimated GFR 37 POC Glucose 139 H 157 H Random Glucose 280 H Calcium 7.5 L Magnesium 1.4 L* Total Bilirubin 0.2 AST 29 ALT 26 Alkaline Phosphatase 160 H Total Protein 5.7 L Albumin 3.1 L 07/04/25 07/04/25 07:15 11:20 Anion Gap Estim Creat Clear Calc Estimated GFR POC Glucose 282 H 210 H Random Glucose Calcium Magnesium Total Bilirubin AST ALT Alkaline Phosphatase Total Protein Albumin Assessment and Plan (1) Alcohol withdrawal seizure: Status: Acute Plan Patient is a 49-year-old with current AUD, marijuana use, current cigarette smoker, poor historian, 49 years old man with past medical history significant for HFpEF, COPD on oxygen, PAD, essential hypertension, CKD stage 3, hyperlipidemia and type 2 diabetes on insulin who presented less than 2 weeks since last admission for COPD exacerbation. Was noted to have alc withdrawal seizures , started on Phenobarbiturates Alcohol withdrawal seizure-none since admission Phenobarb protocol to be continued-last day 07/07/[address] was negative for any acute intracranial pathology Follow-up CPK we will hold aggressive hydration given HFpEF and need for diuresis Daily electrolytes and replete to goal Monitor on tele Addiction team consulted KELVIN on CKD stage 3-improving with IVF Reports slight improvement, given subacute on chronic pain with exacerbation, we will scan for intrarenal pathology Likely prerenal-we will hydrate and recheck in the a.m. HFpEF HTN Continue home torsemide 60 and 40 dosage Continue home meds as the patient is hypotensive with a SBP in the 170s YARELIS Nocturnal CPAP home settings Nicotine patches ordered Smoking cessation advised DVT prophylaxis with Lovenox This note is constructed using voice recognition software. While every effort has been made to ensure accuracy, mop man errors may have been included. Quality Stroke Does the patient have a stroke diagnosis?: No VTE Prior VTE?: No VTE Risk Level:: Medical - low VTE Device Contraindication: N/A - Device Ordered VTE Drug Contraindication: N/A - Med Ordered
--- NOTE | 2025-07-04 13:38 | HO.ADDICTPRO ---
Subjective Subjective Date of Service: 07/04/25 Reason For Visit: alc withdrawal seizures Interim History: Patient seen in follow up after starting naltrexone for AUD. Patient tolerating medication, denies any side effects or concerns. States he is more concerned with all of his other health issues. Aware that he has an appt scheduled with [facility] Review of Systems Constitutional: Reports as per HPI and Reports no additional constitutional complaints Mental Status Exam Mental Status Exam Level of Consciousness: Awake and Alert Patient Behavior: Appropriate Mood Description: Calm Affect Description: Calm Speech Pattern: Clear Hallucinations: None Thought Process: Intact Thought Content: positive for Intact Judgement: Good Diagnostics Vital Signs (24Hr): Vital Signs - 24 hr 07/03/25 15:39 07/03/25 16:13 07/03/25 19:14 Temperature 97.0 F 97.8 F Pulse Rate 71 75 Respiratory Rate 18 18 Blood Pressure 98/57 L 111/59 L 102/60 Pulse Oximetry 98 98 Oxygen Delivery Method Room Air Room Air 07/04/25 00:00 07/04/25 03:44 07/04/25 07:42 Temperature 97.6 F 97 F 97.3 F Pulse Rate 65 74 60 Respiratory Rate 16 16 16 Blood Pressure 106/60 127/67 Pulse Oximetry 94 98 Oxygen Delivery Method Room Air Room Air 07/04/25 08:30 07/04/25 12:00 Temperature 97.5 F Pulse Rate 83 79 Respiratory Rate 18 Blood Pressure 129/62 Pulse Oximetry 98 Oxygen Delivery Method Room Air BMI result Body Mass Index 21.6 Labs 07/01/25 08:05 07/04/25 06:38 Labs: Laboratory Results - last 48 hr 07/01/25 07/02/25 07/02/25 12:23 15:43 19:57 Hold Purple Top Sodium Potassium Chloride Carbon Dioxide Anion Gap BUN Creatinine Estim Creat Clear Calc Estimated GFR POC Glucose 116 H 354 H* Random Glucose Estimat Average Glucose Hemoglobin A1c % Calcium Magnesium Total Bilirubin AST ALT Alkaline Phosphatase Total Protein Albumin Urine Ethyl Alcohol POSITIVE 07/03/25 07/03/25 07/03/25 06:31 07:46 10:14 Hold Purple Top SEE NOTE Sodium 130 L Potassium 4.0 Chloride 94 L Carbon Dioxide 24 Anion Gap 16 BUN 22 H Creatinine 2.19 H Estim Creat Clear Calc 33.6 Estimated GFR 32 POC Glucose 474 H* 282 H Random Glucose 484 H* Estimat Average Glucose 180 Hemoglobin A1c % 7.9 H Calcium 8.0 L Magnesium 1.4 L* Total Bilirubin 0.4 AST 41 H ALT 40 Alkaline Phosphatase 229 H Total Protein 6.6 Albumin 3.5 Urine Ethyl Alcohol 07/03/25 07/03/25 07/03/25 11:09 14:00 15:14 Hold Purple Top Sodium Potassium Chloride Carbon Dioxide Anion Gap BUN Creatinine Estim Creat Clear Calc Estimated GFR POC Glucose 198 H 74 132 H Random Glucose Estimat Average Glucose Hemoglobin A1c % Calcium Magnesium Total Bilirubin AST ALT Alkaline Phosphatase Total Protein Albumin Urine Ethyl Alcohol 07/03/25 07/03/25 07/03/25 15:37 16:00 19:55 Hold Purple Top Sodium 130 L Potassium 4.4 Chloride 97 Carbon Dioxide 23 Anion Gap 14 BUN 24 H Creatinine 2.18 H Estim Creat Clear Calc 33.8 Estimated GFR 32 POC Glucose 151 H 348 H Random Glucose 130 H Estimat Average Glucose Hemoglobin A1c % Calcium 7.7 L Magnesium Total Bilirubin AST ALT Alkaline Phosphatase Total Protein Albumin Urine Ethyl Alcohol 07/03/25 07/04/25 07/04/25 22:03 03:11 03:31 Hold Purple Top Sodium Potassium Chloride Carbon Dioxide Anion Gap BUN Creatinine Estim Creat Clear Calc Estimated GFR POC Glucose 178 H 61 59 L* Random Glucose Estimat Average Glucose Hemoglobin A1c % Calcium Magnesium Total Bilirubin AST ALT Alkaline Phosphatase Total Protein Albumin Urine Ethyl Alcohol 07/04/25 07/04/25 07/04/25 03:57 04:25 04:48 Hold Purple Top Sodium Potassium Chloride Carbon Dioxide Anion Gap BUN Creatinine Estim Creat Clear Calc Estimated GFR POC Glucose 105 139 H 157 H Random Glucose Estimat Average Glucose Hemoglobin A1c % Calcium Magnesium Total Bilirubin AST ALT Alkaline Phosphatase Total Protein Albumin Urine Ethyl Alcohol 07/04/25 07/04/25 07/04/25 06:38 07:15 11:20 Hold Purple Top Sodium 131 L Potassium 3.6 Chloride 99 Carbon Dioxide 21 L Anion Gap 15 BUN 23 H Creatinine 1.95 H Estim Creat Clear Calc 37.8 Estimated GFR 37 POC Glucose 282 H 210 H Random Glucose 280 H Estimat Average Glucose Hemoglobin A1c % Calcium 7.5 L Magnesium 1.4 L* Total Bilirubin 0.2 AST 29 ALT 26 Alkaline Phosphatase 160 H Total Protein 5.7 L Albumin 3.1 L Urine Ethyl Alcohol Imaging Radiology Impressions: ITS Impressions Head CT 07/01/25 07:24 IMPRESSION: No acute fracture, bony calvarium. No acute intracranial hemorrhage. Stable brain. Electronically signed by: Jayden Camacho MD 07/01/2025 09:04 AM EDT Medications Medications Current Medications Acetaminophen (Acetaminophen 325 Mg Tablet) 650 mg PO Q6H PRN PRN Reason: Pain, Mild 1-3,fever,headache Last Admin: 07/03/25 19:52 Dose: 650 mg Albuterol Sulfate (Albuterol Sulfate (0.083%) 2.5 Mg/3 Ml Vial.Neb) 2.5 mg INHALE Q6H PRN PRN Reason: Wheezing Last Admin: 07/02/25 23:38 Dose: 2.5 mg Albuterol/Ipratropium (Albuterol/Iprat 2.5/0.5mg 3 Ml Ampul.Neb) 3 ml INHALE Q4H PRN PRN Reason: Shortness of Breath/Wheezing Amlodipine Besylate (Amlodipine Besylate 10 Mg Tablet) 10 mg PO DAILY [facility]; Protocol Last Admin: 07/04/25 08:35 Dose: 10 mg Aspirin (Aspirin Enteric Coated 81 Mg Tablet.) 81 mg PO DAILY [facility] Last Admin: 07/04/25 08:34 Dose: 81 mg Benzonatate (Benzonatate 100 Mg Capsule) 100 mg PO TID PRN PRN Reason: Cough Last Admin: 07/03/25 02:54 Dose: 100 mg Calcium Carbonate (Calcium Carbonate 750 Mg Tab.Chew) 750 mg PO Q4H PRN PRN Reason: Heartburn Dextrose (Dextrose 50 % 25 Gm/50 Ml Syringe) 25 gm IVPUSH Q15M PRN; Protocol PRN Reason: per Hypoglycemia Standing Ord. Dextrose (Dextrose 50 % 25 Gm/50 Ml Syringe) 25 gm IVPUSH Q15M PRN; Protocol PRN Reason: per Hypoglycemia Standing Ord. Enoxaparin Sodium (Enoxaparin Sodium 40 Mg/0.4 Ml Syringe) 40 mg SUBCUT Q24H [facility] Last Admin: 07/04/25 08:41 Dose: 40 mg Escitalopram Oxalate (Escitalopram Oxalate 20 Mg Tablet) 20 mg PO DAILY [facility] Last Admin: 07/04/25 08:38 Dose: 20 mg Ferrous Sulfate (Ferrous Sulfate 324 Mg Tablet.) 324 mg PO DAILY [facility] Last Admin: 07/04/25 08:32 Dose: 324 mg Gabapentin (Gabapentin 300 Mg Capsule) 300 mg PO TID [facility] Last Admin: 07/04/25 08:33 Dose: 300 mg Glucose (Glucose Gel 15 Gm Gel..Gram.) 15 gm PO Q15M PRN; Protocol PRN Reason: per Hypoglycemia Standing Ord. Glucose (Glucose Gel 15 Gm Gel..Gram.) 15 gm PO Q15M PRN; Protocol PRN Reason: per Hypoglycemia Standing Ord. Hydralazine HCl (Hydralazine Hcl 50 Mg Tablet) 100 mg PO TID [facility]; Protocol Last Admin: 07/04/25 08:32 Dose: 100 mg Sodium Chloride (Ns) 1,000 mls @ 100 mls/hr IVCONT .Q10H [facility] Last Admin: 07/04/25 04:51 Dose: 100 mls/hr Ibuprofen (Ibuprofen 400 Mg Tablet) 400 mg PO Q6H PRN PRN Reason: Fever or Pain, Mild (Pain Scale 1-3) Insulin Glargine (Insulin Glargine,Hum.Rec.Anlog 100 Unit/Ml 10 Ml Vial) 15 unit SUBCUT BEDTIME [facility] Last Admin: 07/03/25 20:08 Dose: 15 unit Insulin Human Lispro (Insulin Lispro 100 Unit/Ml 3 Ml Vial) 0 unit SUBCUT QIDACHS [facility]; Protocol Last Admin: 07/04/25 12:18 Dose: 6 unit Insulin Human Lispro (Insulin Lispro 100 Unit/Ml 3 Ml Vial) 8 unit SUBCUT DAILY@0730 [facility] Last Admin: 07/04/25 08:28 Dose: 8 unit Losartan Potassium (Losartan Potassium 25 Mg Tablet) 25 mg PO DAILY [facility]; Protocol Last Admin: 07/04/25 08:37 Dose: 25 mg Magnesium Hydroxide (Milk Of Magnesia 30 Ml Oral.Susp) 30 ml PO DAILY PRN PRN Reason: Constipation Melatonin (Melatonin 3 Mg Tablet) 6 mg PO BEDTIME PRN PRN Reason: Insomnia Last Admin: 07/03/25 01:32 Dose: 6 mg Metoprolol Succinate (Metoprolol Succinate Er 100 Mg Tab.Er.24h) 100 mg PO DAILY [facility]; Protocol Last Admin: 07/04/25 08:30 Dose: 100 mg Multivitamins/Vitamin C (Multivitamin Tablet) 1 tab PO DAILY [facility] Last Admin: 07/04/25 08:32 Dose: 1 tab Naltrexone HCl (Naltrexone Hcl 50 Mg Tablet) 25 mg PO DAILY [facility] Last Admin: 07/04/25 08:31 Dose: 25 mg Nicotine (Nicotine 21 Mg Patch.Td24) 21 mg TRANSDERMA DAILY PRN PRN Reason: Smoking Cessation Last Admin: 07/04/25 12:13 Dose: 21 mg Nicotine Polacrilex (Nicotine Polacrilex 2 Mg Gum) 2 mg BUCCAL Q2H PRN PRN Reason: Nicotine Cravings Omeprazole (Omeprazole 40 Mg Capsule.Dr) 40 mg PO DAILY@0630 [facility] Last Admin: 07/04/25 05:38 Dose: 40 mg Ondansetron HCl (Ondansetron Hcl 4 Mg/2 Ml Vial) 4 mg IVPUSH Q8H PRN PRN Reason: Nausea and Vomiting Pharmacy Consult (Consult Rx Etoh Phenob Im/Po) 1 each MISCELLANE ONCE PRN; Protocol PRN Reason: Consult order Pharmacy Consult (Consult Rx Anticoag Dosing) 1 each MISCELLANE DAILY PRN; Protocol PRN Reason: Consult order Phenobarbital (Phenobarbital 30 Mg Tablet) 30 mg PO BID [facility]; Protocol Stop: 07/05/25 21:01 Last Admin: 07/04/25 08:35 Dose: 30 mg Phenobarbital (Phenobarbital 30 Mg Tablet) 30 mg PO DAILY [facility]; Protocol Stop: 07/07/25 09:01 Polyethylene Glycol (Polyethylene Glycol 3350 17 Gm Powd.Pack) 17 gm PO DAILY PRN PRN Reason: Constipation Sodium Chloride (0.9 % Sodium Chloride Flush 3 Ml Syringe) 3 ml IVFLUSH QSHIFT [facility] Last Admin: 07/04/25 08:38 Dose: 3 ml Sucralfate (Sucralfate 1 Gm Tablet) 1 gm PO QID [facility] Last Admin: 07/04/25 12:15 Dose: 1 gm Thiamine HCl (Thiamine Hcl 100 Mg Tablet) 100 mg PO DAILY [facility] Last Admin: 07/04/25 08:30 Dose: 100 mg Torsemide (Torsemide 20 Mg Tablet) 60 mg PO DAILY [facility]; Protocol Last Admin: 07/04/25 08:34 Dose: 60 mg Torsemide (Torsemide 20 Mg Tablet) 40 mg PO BEDTIME [facility]; Protocol Last Admin: 07/03/25 19:50 Dose: 40 mg Trazodone HCl (Trazodone Hcl 100 Mg Tablet) 100 mg PO BEDTIME [facility] Last Admin: 07/03/25 19:49 Dose: 100 mg Allergies Allergies Allergy/AdvReac Type Severity Reaction Status Date / Time dulaglutide (From [facility]) Allergy Unknown Verified 07/01/25 07:51 metformin (METFORMIN) AdvReac Mild DIARRHEA, Verified 07/01/25 07:51 nausea and vomiting Assessment & Plan Assessment & Plan (1) Alcohol use disorder, moderate, dependence: Status: Acute Code(s): F10.20 - Alcohol dependence, uncomplicated Assessment and Plan: one more day of naltrexone 25mg, then increase to 50mg daily please send rx for naltrexone 50mg QD to patients pharmacy at discharge ([facility]) [facility] appt in place--no additional follow up needed at this time Total time managing care of this patient today _15___ minutes.
--- NOTE | 2025-07-04 14:29 | MHC.CLN ---
CONSULT COMPLETED FOR DIABETIC TEACHING REVIEWED FOODS THAT AFFECT BLOOD SUGAR IE CARBOHYDRATES, FRUIT, DAIRY PRODUCTS, JUICE, SODA ETC. PT DOES CURRENTLY CONSUME JUICE, SODA AND ICE TEA. BRIEFLY DISCUSSED FOODS LOW SALT DIET FOR CHF AND CKD. HANDOUTS GIVEN. PT WOULD BENEFIT FROM REFERRAL TO OUT PT RD FOR FURTHER FOLLOW UP-REFERRALS GIVEN TO PATIENT SEE TEACHING RECORD FOR MORE DETAILS
[2025-07-04 15:25] LABS: Glucose, Whole Blood 67 mg/dL (60-115)
[2025-07-04] MEDS: Albuterol/Iprat 2.5/0.5MG 3 ML AMPUL.NEB INHALE (15:26)
[2025-07-04] MEDS: Glucose Gel 15 GM GEL..GRAM. PO (15:30)
[2025-07-04 16:13] LABS: Glucose, Whole Blood 149 mg/dL (60-115)
--- NOTE | 2025-07-04 16:20 | PM.EVENT ---
Event Note Date of Service: 07/04/25 Event Note: Patient had symptomatic hypoglycemia hence all insulin orders are being discontinued and he is only on hypoglycemia protocol Time Spent With Patient Time: Total time managing care of this patient today ____ minutes.
[2025-07-04] MEDS: oxyCODONE HCl Immed Release 5 MG TABLET PO (20:10)
[2025-07-04 20:15] LABS: Glucose, Whole Blood 304 mg/dL (60-115)
[2025-07-05] VITALS (8 sets, daily range): BP systolic 106–129; BP diastolic 57–66; PULSE 74–91; RESP 17–19; TEMP 36.1–36.6; O2SAT 96–99
[2025-07-05 07:42] LABS: Glucose, Whole Blood 314 mg/dL (60-115)
[2025-07-05 07:55] LABS: Alanine Aminotransferase 24 U/L (0-40); Albumin Level 2.8 g/dL (3.5-5.0); Alkaline Phosphatase 144 U/L (39-117); Anion Gap 11 (12-20); Aspartate Amino Transferase 28 U/L (5-37); Blood Urea Nitrogen 19 mg/dL (9-16); Calcium 7.8 mg/dL (8.4-10.2); Carbon Dioxide 20 mmol/L (22-29); Chloride 103 mmol/L (96-108); Creatinine Clr Calc Pharmacy 52.3; Estimated Glomerular Filt Rate 53; Magnesium 1.6 mg/dL (1.6-2.6); Potassium 4.1 mmol/L (3.3-5.1); Sodium 130 mmol/L (135-145); Total Protein 5.3 g/dL (6.5-8.0)
--- NOTE | 2025-07-05 07:55 | P.PNIM_ITS ---
Subjective Subjective Date of Service: 07/05/25 Interval History: Pt appears anxious overall Review of Systems Review of Systems: Yes all other systems are reviewed and are negative Physical Exam 2 Exam: Exam: General: AOx3, no acute distress Resp: CTA bilaterally though diminished CVS: S1, S2, RRR GI: +BS, NT, no distention Vital Signs: Vital Signs: Last Vital Signs Temp 97.7 F 07/05/25 07:49 Pulse 90 07/05/25 07:49 Resp 17 07/05/25 07:49 BP 127/64 07/05/25 07:49 Pulse Ox 99 07/05/25 07:49 O2 Del Method Room Air 07/05/25 07:49 O2 Flow Rate 2 07/03/25 03:19 BMI result Body Mass Index 21.6 Objective Data Active Medications Acetaminophen (Acetaminophen 325 Mg Tablet) 650 mg PO Q6H PRN PRN Reason: Pain, Mild 1-3,fever,headache Last Admin: 07/03/25 19:52 Dose: 650 mg Documented By: MEDARDO Albuterol Sulfate (Albuterol Sulfate (0.083%) 2.5 Mg/3 Ml Vial.Jean Claude) 2.5 mg INHALE Q6H PRN PRN Reason: Wheezing Last Admin: 07/02/25 23:38 Dose: 2.5 mg Documented By: BARBARA Amlodipine Besylate (Amlodipine Besylate 10 Mg Tablet) 10 mg PO DAILY [facility]; Protocol Last Admin: 07/04/25 08:35 Dose: 10 mg Documented By: JOLLY Aspirin (Aspirin Enteric Coated 81 Mg Tablet.) 81 mg PO DAILY [facility] Last Admin: 07/04/25 08:34 Dose: 81 mg Documented By: JOLLY Benzonatate (Benzonatate 100 Mg Capsule) 100 mg PO TID PRN PRN Reason: Cough Last Admin: 07/03/25 02:54 Dose: 100 mg Documented By: SCOTT Calcium Carbonate (Calcium Carbonate 750 Mg Tab.Chew) 750 mg PO Q4H PRN PRN Reason: Heartburn Dextrose (Dextrose 50 % 25 Gm/50 Ml Syringe) 25 gm IVPUSH Q15M PRN; Protocol PRN Reason: per Hypoglycemia Standing Ord. Enoxaparin Sodium (Enoxaparin Sodium 40 Mg/0.4 Ml Syringe) 40 mg SUBCUT Q24H [facility] Last Admin: 07/04/25 08:41 Dose: 40 mg Documented By: JOLLY Escitalopram Oxalate (Escitalopram Oxalate 20 Mg Tablet) 20 mg PO DAILY [facility] Last Admin: 07/04/25 08:38 Dose: 20 mg Documented By: JOLLY Ferrous Sulfate (Ferrous Sulfate 324 Mg Tablet.Dr) 324 mg PO DAILY [facility] Last Admin: 07/04/25 08:32 Dose: 324 mg Documented By: JOLLY Gabapentin (Gabapentin 300 Mg Capsule) 300 mg PO TID [facility] Last Admin: 07/04/25 20:10 Dose: 300 mg Documented By: NANCY Glucose (Glucose Gel 15 Gm Gel..Gram.) 15 gm PO Q15M PRN; Protocol PRN Reason: per Hypoglycemia Standing Ord. Last Admin: 07/04/25 15:30 Dose: 15 gm Documented By: JOLLY Hydralazine HCl (Hydralazine Hcl 50 Mg Tablet) 100 mg PO TID [facility]; Protocol Last Admin: 07/04/25 20:09 Dose: 100 mg Documented By: NANCY Ibuprofen (Ibuprofen 400 Mg Tablet) 400 mg PO Q6H PRN PRN Reason: Fever or Pain, Mild (Pain Scale 1-3) Insulin Human Lispro (Insulin Lispro 100 Unit/Ml 3 Ml Vial) 0 unit SUBCUT QIDACHS [facility]; Protocol Last Admin: 07/04/25 20:13 Dose: 8 unit Documented By: NANCY Losartan Potassium (Losartan Potassium 25 Mg Tablet) 25 mg PO DAILY [facility]; Protocol Last Admin: 07/04/25 08:37 Dose: 25 mg Documented By: JOLLY Magnesium Hydroxide (Milk Of Magnesia 30 Ml Oral.Susp) 30 ml PO DAILY PRN PRN Reason: Constipation Melatonin (Melatonin 3 Mg Tablet) 6 mg PO BEDTIME PRN PRN Reason: Insomnia Last Admin: 07/03/25 01:32 Dose: 6 mg Documented By: SCOTT Metoprolol Succinate (Metoprolol Succinate Er 100 Mg Tab.Er.24h) 100 mg PO DAILY [facility]; Protocol Last Admin: 07/04/25 08:30 Dose: 100 mg Documented By: JOLLY Multivitamins/Vitamin C (Multivitamin Tablet) 1 tab PO DAILY [facility] Last Admin: 07/04/25 08:32 Dose: 1 tab Documented By: JOLLY Naltrexone HCl (Naltrexone Hcl 50 Mg Tablet) 50 mg PO DAILY [facility] Nicotine (Nicotine 21 Mg Patch.Td24) 21 mg TRANSDERMA DAILY PRN PRN Reason: Smoking Cessation Last Admin: 07/04/25 12:13 Dose: 21 mg Documented By: JOLLY Nicotine Polacrilex (Nicotine Polacrilex 2 Mg Gum) 2 mg BUCCAL Q2H PRN PRN Reason: Nicotine Cravings Last Admin: 07/04/25 20:16 Dose: 2 mg Documented By: NANCY Omeprazole (Omeprazole 40 Mg Capsule.Dr) 40 mg PO DAILY@30 [facility] Last Admin: 07/05/25 06:12 Dose: 40 mg Documented By: NANCY Ondansetron HCl (Ondansetron Hcl 4 Mg/2 Ml Vial) 4 mg IVPUSH Q8H PRN PRN Reason: Nausea and Vomiting Pharmacy Consult (Consult Rx Etoh Phenob Im/Po) 1 each MISCELLANE ONCE PRN; Protocol PRN Reason: Consult order Phenobarbital (Phenobarbital 30 Mg Tablet) 30 mg PO BID [facility]; Protocol Stop: 07/05/25 21:01 Last Admin: 07/04/25 20:10 Dose: 30 mg Documented By: NANCY Phenobarbital (Phenobarbital 30 Mg Tablet) 30 mg PO DAILY [facility]; Protocol Stop: 07/07/25 09:01 Polyethylene Glycol (Polyethylene Glycol 3350 17 Gm Powd.Pack) 17 gm PO DAILY PRN PRN Reason: Constipation Sodium Chloride (0.9 % Sodium Chloride Flush 3 Ml Syringe) 3 ml IVFLUSH QSHIFT [facility] Last Admin: 07/04/25 20:15 Dose: 3 ml Documented By: NANCY Sucralfate (Sucralfate 1 Gm Tablet) 1 gm PO QID [facility] Last Admin: 07/04/25 20:09 Dose: 1 gm Documented By: NANCY Thiamine HCl (Thiamine Hcl 100 Mg Tablet) 100 mg PO DAILY [facility] Last Admin: 07/04/25 08:30 Dose: 100 mg Documented By: JOLLY Trazodone HCl (Trazodone Hcl 100 Mg Tablet) 100 mg PO BEDTIME [facility] Last Admin: 07/04/25 20:10 Dose: 100 mg Documented By: NANCY Labs 07/01/25 08:05 07/05/25 07:17 Labs: Laboratory Results - last 24 hr 07/04/25 07/04/25 07/04/25 11:20 15:22 16:09 Hold Purple Top POC Glucose 210 H 67 149 H 07/04/25 07/05/25 07/05/25 20:10 07:17 07:34 Hold Purple Top SEE NOTE POC Glucose 304 H 314 H Assessment and Plan (1) Alcohol withdrawal seizure: Status: Acute Plan Patient is a 49-year-old with current AUD, marijuana use, current cigarette smoker, poor historian, 49 years old man with past medical history significant for HFpEF, COPD on oxygen, PAD, essential hypertension, CKD stage 3, hyperlipidemia and type 2 diabetes on insulin who presented less than 2 weeks since last admission for COPD exacerbation. Was noted to have alc withdrawal seizures , started on Phenobarbiturates Alcohol withdrawal seizure-none since admission Phenobarb protocol to be continued-last day 07/07/2025 KELVIN on CKD stage 3-improving with IVF Reports slight improvement, given subacute on chronic pain with exacerbation, we will scan for intrarenal pathology Likely prerenal-we will hydrate and recheck in the a.m. HFpEF HTN Continue home torsemide 60 and 40 dosage Continue home meds as the patient is hypotensive with a SBP in the 170s YARELIS Nocturnal CPAP home settings Nicotine patches ordered Smoking cessation advised Anxiety Uptitrated home SSRI Initiate Atarax DVT prophylaxis with Lovenox This note is constructed using voice recognition software. While every effort has been made to ensure accuracy, boiler tester errors may have been included. Quality Stroke Does the patient have a stroke diagnosis?: No VTE Prior VTE?: No VTE Risk Level:: Medical - low VTE Device Contraindication: N/A - Device Ordered VTE Drug Contraindication: N/A - Med Ordered
[2025-07-05] MEDS: Nicotine 21 MG PATCH.TD24 TRANSDERMA (08:09)
[2025-07-05] MEDS: Ferrous Sulfate 324 MG TABLET.DR PO (08:13)
[2025-07-05] MEDS: Metoprolol Succinate ER 100 MG TAB.ER.24H PO (08:13)
[2025-07-05] MEDS: Aspirin Enteric Coated 81 MG TABLET.DR PO (08:13)
[2025-07-05] MEDS: 0.9 % Sodium Chloride Flush 3 ML SYRINGE IVFLUSH ×3 (08:17→20:31)
[2025-07-05 11:33] LABS: Glucose, Whole Blood 195 mg/dL (60-115)
[2025-07-05] MEDS: Albuterol Sulfate (0.083%) 2.5 MG/3 ML VIAL.NEB INHALE (13:53)
[2025-07-05 16:14] LABS: Glucose, Whole Blood 202 mg/dL (60-115)
[2025-07-05 20:13] LABS: Glucose, Whole Blood 178 mg/dL (60-115)
[2025-07-06 03:55] VITALS: BP 140/74; PULSE 82; RESP 18; TEMP 36.6; O2SAT 95
--- NOTE | 2025-07-06 07:48 | P.PNIM_ITS ---
Subjective Subjective Date of Service: 07/06/25 Physical Exam 2 Vital Signs: Vital Signs: Last Vital Signs Temp 97.8 F 07/06/25 03:55 Pulse 82 07/06/25 03:55 Resp 18 07/06/25 03:55 BP 140/74 H 07/06/25 03:55 Pulse Ox 95 07/06/25 03:55 O2 Del Method Room Air 07/06/25 03:55 O2 Flow Rate 2 07/03/25 03:19 BMI result Body Mass Index 21.6 Objective Data Active Medications Acetaminophen (Acetaminophen 325 Mg Tablet) 650 mg PO Q6H PRN PRN Reason: Pain, Mild 1-3,fever,headache Last Admin: 07/03/25 19:52 Dose: 650 mg Documented By: MEDARDO Albuterol Sulfate (Albuterol Sulfate (0.083%) 2.5 Mg/3 Ml Vial.Jean Claude) 2.5 mg INHALE Q6H PRN PRN Reason: Wheezing Last Admin: 07/05/25 13:53 Dose: 2.5 mg Documented By: PUJA Amlodipine Besylate (Amlodipine Besylate 10 Mg Tablet) 10 mg PO DAILY [facility]; Protocol Last Admin: 07/05/25 08:13 Dose: 10 mg Documented By: CALISTA Aspirin (Aspirin Enteric Coated 81 Mg Tablet.) 81 mg PO DAILY [facility] Last Admin: 07/05/25 08:13 Dose: 81 mg Documented By: CALISTA Benzonatate (Benzonatate 100 Mg Capsule) 100 mg PO TID PRN PRN Reason: Cough Last Admin: 07/03/25 02:54 Dose: 100 mg Documented By: SCOTT Calcium Carbonate (Calcium Carbonate 750 Mg Tab.Chew) 750 mg PO Q4H PRN PRN Reason: Heartburn Dextrose (Dextrose 50 % 25 Gm/50 Ml Syringe) 25 gm IVPUSH Q15M PRN; Protocol PRN Reason: per Hypoglycemia Standing Ord. Enoxaparin Sodium (Enoxaparin Sodium 40 Mg/0.4 Ml Syringe) 40 mg SUBCUT Q24H [facility] Last Admin: 07/05/25 08:36 Dose: 40 mg Documented By: CALISTA Escitalopram Oxalate (Escitalopram Oxalate 20 Mg Tablet) 40 mg PO DAILY [facility] Ferrous Sulfate (Ferrous Sulfate 324 Mg Tablet.) 324 mg PO DAILY [facility] Last Admin: 07/05/25 08:13 Dose: 324 mg Documented By: CALISTA Gabapentin (Gabapentin 300 Mg Capsule) 600 mg PO TID [facility] Last Admin: 07/05/25 20:30 Dose: 600 mg Documented By: NANCY Glucose (Glucose Gel 15 Gm Gel..Gram.) 15 gm PO Q15M PRN; Protocol PRN Reason: per Hypoglycemia Standing Ord. Last Admin: 07/04/25 15:30 Dose: 15 gm Documented By: JOLLY Hydralazine HCl (Hydralazine Hcl 50 Mg Tablet) 100 mg PO TID [facility]; Protocol Last Admin: 07/05/25 20:31 Dose: 100 mg Documented By: NANCY Hydroxyzine HCl (Hydroxyzine Hcl 50 Mg Tablet) 50 mg PO Q6H PRN PRN Reason: Anxiety Ibuprofen (Ibuprofen 400 Mg Tablet) 400 mg PO Q6H PRN PRN Reason: Fever or Pain, Mild (Pain Scale 1-3) Insulin Human Lispro (Insulin Lispro 100 Unit/Ml 3 Ml Vial) 0 unit SUBCUT QIDACHS [facility]; Protocol Last Admin: 07/05/25 20:31 Dose: 2 unit Documented By: NANCY Losartan Potassium (Losartan Potassium 25 Mg Tablet) 25 mg PO DAILY [facility]; Protocol Last Admin: 07/05/25 08:14 Dose: 25 mg Documented By: CALISTA Magnesium Hydroxide (Milk Of Magnesia 30 Ml Oral.Susp) 30 ml PO DAILY PRN PRN Reason: Constipation Melatonin (Melatonin 3 Mg Tablet) 6 mg PO BEDTIME PRN PRN Reason: Insomnia Last Admin: 07/03/25 01:32 Dose: 6 mg Documented By: SCOTT Metoprolol Succinate (Metoprolol Succinate Er 100 Mg Tab.Er.24h) 100 mg PO DAILY [facility]; Protocol Last Admin: 07/05/25 08:13 Dose: 100 mg Documented By: CALISTA Multivitamins/Vitamin C (Multivitamin Tablet) 1 tab PO DAILY [facility] Last Admin: 07/05/25 08:13 Dose: 1 tab Documented By: CALISTA Naltrexone HCl (Naltrexone Hcl 50 Mg Tablet) 50 mg PO DAILY [facility] Nicotine (Nicotine 21 Mg Patch.Td24) 21 mg TRANSDERMA DAILY PRN PRN Reason: Smoking Cessation Last Admin: 07/05/25 08:09 Dose: 21 mg Documented By: CALISTA Nicotine Polacrilex (Nicotine Polacrilex 2 Mg Gum) 2 mg BUCCAL Q2H PRN PRN Reason: Nicotine Cravings Last Admin: 07/04/25 20:16 Dose: 2 mg Documented By: NANCY Omeprazole (Omeprazole 40 Mg Capsule.Dr) 40 mg PO DAILY@0630 [facility] Last Admin: 07/06/25 05:54 Dose: 40 mg Documented By: NNACY Ondansetron HCl (Ondansetron Hcl 4 Mg/2 Ml Vial) 4 mg IVPUSH Q8H PRN PRN Reason: Nausea and Vomiting Pharmacy Consult (Consult Rx Etoh Phenob Im/Po) 1 each MISCELLANE ONCE PRN; Protocol PRN Reason: Consult order Phenobarbital (Phenobarbital 30 Mg Tablet) 30 mg PO DAILY [facility]; Protocol Stop: 07/07/25 09:01 Polyethylene Glycol (Polyethylene Glycol 3350 17 Gm Powd.Pack) 17 gm PO DAILY PRN PRN Reason: Constipation Sodium Chloride (0.9 % Sodium Chloride Flush 3 Ml Syringe) 3 ml IVFLUSH QSHIFT [facility] Last Admin: 07/05/25 20:31 Dose: 3 ml Documented By: NANCY Sucralfate (Sucralfate 1 Gm Tablet) 1 gm PO QID [facility] Last Admin: 07/05/25 20:31 Dose: 1 gm Documented By: NANCY Thiamine HCl (Thiamine Hcl 100 Mg Tablet) 100 mg PO DAILY [facility] Last Admin: 07/05/25 08:14 Dose: 100 mg Documented By: CALISTA Torsemide (Torsemide 20 Mg Tablet) 40 mg PO DAILY [facility]; Protocol Last Admin: 07/05/25 08:37 Dose: 40 mg Documented By: CALISTA Torsemide (Torsemide 20 Mg Tablet) 20 mg PO DAILY@1400 [facility]; Protocol Last Admin: 07/05/25 15:11 Dose: 20 mg Documented By: CALISTA Trazodone HCl (Trazodone Hcl 100 Mg Tablet) 100 mg PO BEDTIME [facility] Last Admin: 07/05/25 20:31 Dose: 100 mg Documented By: NANCY Labs 07/01/25 08:05 07/05/25 07:17 Labs: Laboratory Results - last 24 hr 07/05/25 07/05/25 07/05/25 07:17 11:19 16:04 Hold Purple Top Anion Gap 11 L Estim Creat Clear Calc 52.3 Estimated GFR 53 POC Glucose 195 H 202 H Random Glucose 319 H Calcium 7.8 L Magnesium 1.6 Total Bilirubin 0.1 AST 28 ALT 24 Alkaline Phosphatase 144 H Total Protein 5.3 L Albumin 2.8 L 07/05/25 07/06/25 20:09 07:25 Hold Purple Top SEE NOTE Anion Gap Estim Creat Clear Calc Estimated GFR POC Glucose 178 H Random Glucose Calcium Magnesium Total Bilirubin AST ALT Alkaline Phosphatase Total Protein Albumin Quality Stroke Does the patient have a stroke diagnosis?: No VTE Prior VTE?: No VTE Risk Level:: Medical - low VTE Device Contraindication: N/A - Device Ordered VTE Drug Contraindication: N/A - Med Ordered
[2025-07-06 07:58] LABS: Glucose, Whole Blood 291 mg/dL (60-115)
[2025-07-06 08:00] VITALS: BP 167/78; PULSE 69; RESP 16; TEMP 36.3; O2SAT 98
[2025-07-06 08:09] LABS: Alanine Aminotransferase 24 U/L (0-40); Albumin Level 3.0 g/dL (3.5-5.0); Alkaline Phosphatase 137 U/L (39-117); Anion Gap 12 (12-20); Aspartate Amino Transferase 32 U/L (5-37); Blood Urea Nitrogen 19 mg/dL (9-16); Calcium 8.4 mg/dL (8.4-10.2); Carbon Dioxide 21 mmol/L (22-29); Chloride 106 mmol/L (96-108); Creatinine Clr Calc Pharmacy 56.2; Estimated Glomerular Filt Rate 58; Magnesium 1.5 mg/dL (1.6-2.6); Potassium 4.3 mmol/L (3.3-5.1); Sodium 135 mmol/L (135-145); Total Protein 5.6 g/dL (6.5-8.0)
[2025-07-06] MEDS: Aspirin Enteric Coated 81 MG TABLET.DR PO (09:03)
[2025-07-06] MEDS: Ferrous Sulfate 324 MG TABLET.DR PO (09:05)
[2025-07-06] MEDS: Nicotine 21 MG PATCH.TD24 TRANSDERMA (09:06)
[2025-07-06] MEDS: 0.9 % Sodium Chloride Flush 3 ML SYRINGE IVFLUSH (09:52)
[2025-07-06] MEDS: Metoprolol Succinate ER 100 MG TAB.ER.24H PO (10:20)
--- NOTE | 2025-07-06 11:19 | P.DS_ITS ---
DS: Providers Provider Date of Service: 07/06/25 Date of admission: 07/01/25 09:25 Date of discharge: 07/06/25 Primary care physician: Zari Henry MD Consults: 07/01/25 13:56 Addiction Medicine Provider Stat Consulting Provider: Addiction Covering Reason for consultation: AUD, VLADIMIR 07/03/25 14:04 Consult to Comprehensive Care Routine Consulting Provider: [facility] DS: Diagnosis Discharge Diagnosis (1) Alcohol withdrawal seizure: Status: Acute DS: Summary Hospital Course Hospital Course: Alcohol withdrawal seizure-none since admission Patient is a 49-year-old with current AUD, marijuana use, current cigarette smoker, poor historian, 49 years old man with past medical history significant for HFpEF, COPD on oxygen, PAD, essential hypertension, CKD stage 3, hyperlipidemia and type 2 diabetes on insulin who presented less than 2 weeks since last admission for COPD exacerbation. Was noted to have alc withdrawal seizures , started on Phenobarb all which she tolerated well. Patient has a follow-up appointment at [facility] after discharge for his alcohol use disorder. He is being prescribed naltrexone for maintaining so briety until his appointment. Phenobarb protocol to be continued-last day 07/07/2025 KELVIN on CKD stage 3-improving with IVF Reports slight improvement, given subacute on chronic pain with exacerbation, we will scan for intrarenal pathology Likely prerenal-we will hydrate and recheck in the a.m. HFpEF HTN Continued home torsemide 60 and 40 dosage YARELIS Nocturnal CPAP home settings Nicotine patches ordered Smoking cessation advised Anxiety Continue SSRI DVT prophylaxis with Lovenox This note is constructed using voice recognition software. While every effort has been made to ensure accuracy, hand i cutter errors may have been included. Time spent discussing smoking cessation with patient: more than 10 minutes Time Attestation Discharge Coordination Time (in mins): 35 minutes Quality: Safe Use of Opioids Does Pt have an Active Cancer Diagnosis on the Problem List?: No Quality: Stroke Does the patient have a stroke diagnosis?: No Physical Exam Vital Signs: Vital Signs: Last Vital Signs Temp 97.3 F 07/06/25 08:00 Pulse 69 07/06/25 08:00 Resp 16 07/06/25 08:00 BP 167/78 H 07/06/25 08:00 Pulse Ox 98 07/06/25 08:00 O2 Del Method Room Air 07/06/25 08:00 O2 Flow Rate 2 07/03/25 03:19 BMI result Body Mass Index 21.6 DS: Data Data Completed and Pending Completed studies during hospitalization [Text1]: Procedures Assistance with Respiratory Ventilation, Less than 24 Consecutive Hours, Continuous Positive Airway Pressure (11/19/24) Detoxification Services for Substance Abuse Treatment (04/26/24) Excision of Esophagus, Via Natural or Artificial Opening Endoscopic, Diagnostic (04/26/24) Excision of Stomach, Pylorus, Via Natural or Artificial Opening Endoscopic, Diagnostic (04/26/24) Introduction of Remdesivir Anti-infective into Peripheral Vein, Percutaneous Approach, [employer] (12/22/23) Labs on day of discharge: Laboratory Results - last 24 hr 07/05/25 07/05/25 07/05/25 11:19 16:04 20:09 Hold Purple Top Sodium Potassium Chloride Carbon Dioxide Anion Gap BUN Creatinine Estim Creat Clear Calc Estimated GFR POC Glucose 195 H 202 H 178 H Random Glucose Calcium Magnesium Total Bilirubin AST ALT Alkaline Phosphatase Total Protein Albumin 07/06/25 07/06/25 07/06/25 06:54 07:25 07:49 Hold Purple Top SEE NOTE Sodium 135 Potassium 4.3 Chloride 106 Carbon Dioxide 21 L Anion Gap 12 BUN 19 H Creatinine 1.31 Estim Creat Clear Calc 56.2 Estimated GFR 58 POC Glucose 291 H Random Glucose 314 H Calcium 8.4 D Magnesium 1.5 L Total Bilirubin 0.1 AST 32 ALT 24 Alkaline Phosphatase 137 H Total Protein 5.6 L Albumin 3.0 L Discharge Plan Discharge Anticipated Discharge Date/Time: 07/06/25 11:19 Patient Disposition: Home, Self-Care Discharge Diagnosis: Alcohol withdrawal seizure, status post phenobarb protocol Referrals: Fede: Recovery Coaching [Other] - 1 Week Referral Note: referral has been sent for recovery coaching please call to follow-up on referral process as needed [facility] [Provider Group] - 07/10/25 9:30 am Referral Note: intake appt to start/continue naltrexone please bring insurance card and ID if available Take south elevators C or D to 4th floor and take a right off the elevators. The office is at the end of the [address], on the left, [phone] Zari Henry MD [Primary Care Provider, Internal Medicine] - 1 Week Discharge Medications: New naltrexone 50 mg Tablet 50 mg PO DAILY 30 Days Qty: 30 3RF Continued hydralazine 100 mg tablet 100 mg PO TID 30 Days Qty: 90 5RF trazodone 50 mg tablet 100 mg PO BEDTIME atorvastatin 40 mg tablet 40 mg PO DAILY metoprolol succinate 100 mg tablet extended release 24 hr 100 mg PO DAILY amlodipine 5 mg tablet 10 mg PO DAILY omeprazole 40 mg capsule,delayed release(DR/EC) 40 mg PO DAILY@0630 sucralfate 1 gram tablet 1 g PO QID ferrous sulfate [iron] 325 mg (65 mg iron) tablet 325 mg PO DAILY Qty: 30 0RF gabapentin 300 mg capsule 300 mg PO TID escitalopram oxalate 20 mg tablet 20 mg PO DAILY One-A-Day Men's Multivitamin 400-20-300 mcg Tablet 1 tab PO DAILY (DME) Omnipod 5 G6 Intro Kit (Gen 5) Cartridge SUBCUT insulin lispro 100 unit/mL solution 100 unit subcut DIRECTED Rx Instructions: INJECT up to 100 UNITS DIRECTED SEE ADMIN INSTRUCTIONS. USE PER INSULIN PUMP Q3D. torsemide 20 mg tablet 40 mg PO BEDTIME torsemide 20 mg tablet 60 mg PO DAILY magnesium oxide 400 mg (241.3 mg magnesium) tablet 400 mg PO DAILY losartan 25 mg tablet 25 mg PO DAILY albuterol sulfate 2.5 mg /3 mL (0.083 %) solution for nebulization 2.5 mg inhalation Q6H PRN (Reason: wheezing) nicotine 21 mg/24 hr patch 24 hour 21 mg transdermal DAILY PRN (Reason: Smoking Cessation) aspirin 81 mg tablet,delayed release (DR/EC) 81 mg PO DAILY Discharge Orders: Discharge Order (Routine); Ordered 07/06/25 Ordered By: Vickie Antony Diet: Low salt diet Activity on Discharge: As tolerated Stand Alone Forms: Patient Portal Discharge page Print Language: Turkmen Care Plan Goals: Maintaining sobriety follow up appointment at the [facility] after discharge for his alcohol use disorder Prescribed naltrexone to maintain sobriety Health Concerns: See above Plan of Treatment: See above Assessment: See above
[2025-07-06 11:46] LABS: Glucose, Whole Blood 171 mg/dL (60-115)
[2025-07-06 11:52] VITALS: BP 139/69; PULSE 77; RESP 16; TEMP 36.1; O2SAT 99
--- NOTE | 2025-07-06 13:41 | MHC.RECOVRN ---
T/W met with pt. in to check in and offer support. T/W reviewed Naltrexone orders and upcoming [facility] appt with pt. and provided him with written reminder. Pt is being D/C today. T/W contacted tish Antony and requested naltrexone script at D/C which provider confirmed was done. Pt denies any further questions/concerns. Will f/u with [facility] as scheduled.
== END 2025-07-06 13:54 | disposition home or self-care (01) | DRG 775 ==
LOC: HO.ED 09:17 → HO.EDOVER 09:28 → HO.IMC 17:00
PROVIDERS: Physician Assistant; Admitting Provider Student in an Organized Health Care Education/Training Program; Emergency Provider Emergency Medicine; PCP Internal Medicine; Visit Provider Student in an Organized Health Care Education/Training Program
DX: F10.239 Alcohol dependence with withdrawal, unspecified (principal); E11.649 Type 2 diabetes mellitus with hypoglycemia without coma; N17.9 Acute kidney failure, unspecified; E11.22 Type 2 diabetes mellitus with diabetic chronic kidney disease; I13.0 Hypertensive heart and chronic kidney disease with heart failure and stage 1 through stage 4 chronic kidney disease, or unspecified chronic kidney disease; I50.32 Chronic diastolic (congestive) heart failure; E11.65 Type 2 diabetes mellitus with hyperglycemia; R56.9 Unspecified convulsions; N18.30 Chronic kidney disease, stage 3 unspecified; G47.33 Obstructive sleep apnea (adult) (pediatric); F17.210 Nicotine dependence, cigarettes, uncomplicated; J44.9 Chronic obstructive pulmonary disease, unspecified; E11.51 Type 2 diabetes mellitus with diabetic peripheral angiopathy without gangrene; F41.9 Anxiety disorder, unspecified; Z71.6 Tobacco abuse counseling; Z79.82 Long term (current) use of aspirin; Z71.41 Alcohol abuse counseling and surveillance of alcoholic; Z79.4 Long term (current) use of insulin; Z79.899 Other long term (current) drug therapy
CPT/HCPCS: 36415; 70450; 71045; 71046; 76705; 76775; 80048; 80053; 80061; 80076; 80307; 81001; 82550; 82607; 82746; 82947; 83036; 83690; 83735; 83880; 84443; 85025; 93005; 94640; 97116; 97161; 99285; J1650; J2560; J3360; J3411; J3475; S9485

== ENCOUNTER → 2025-07-01 07:40 | Outpatient (BNV) | payer OTHER, SELFPAY | PROVIDERS: Admitting Provider Student in an Organized Health Care Education/Training Program; Emergency Provider Emergency Medicine; PCP Internal Medicine; Visit Provider Internal Medicine Cardiovascular Disease | DX: R55 Syncope and collapse (principal) | CPT/HCPCS: 93010 ==

== ENCOUNTER → 2025-07-01 07:42 | Outpatient (BNV) | payer OTHER, SELFPAY | PROVIDERS: Admitting Provider Student in an Organized Health Care Education/Training Program; Emergency Provider Emergency Medicine; PCP Internal Medicine; Visit Provider Radiology Diagnostic Radiology | DX: R55 Syncope and collapse (principal) | CPT/HCPCS: 70450 ==

== ENCOUNTER 2025-07-01 09:25 | Outpatient (BNV) | payer OTHER, SELFPAY | END 2025-07-02 05:00 | PROVIDERS: Admitting Provider Student in an Organized Health Care Education/Training Program; Emergency Provider Emergency Medicine; PCP Internal Medicine; Visit Provider Internal Medicine Cardiovascular Disease | DX: Z13.6 Encounter for screening for cardiovascular disorders (principal) | CPT/HCPCS: 93010 ==

== ENCOUNTER 2025-07-01 09:25 | Outpatient (BNV) | payer OTHER, SELFPAY | END 2025-07-02 05:00 | PROVIDERS: Admitting Provider Student in an Organized Health Care Education/Training Program; Emergency Provider Emergency Medicine; PCP Internal Medicine; Visit Provider Radiology Diagnostic Radiology | DX: R10.11 Right upper quadrant pain (principal); R42 Dizziness and giddiness | CPT/HCPCS: 71046; 76705 ==

== ENCOUNTER 2025-07-01 09:25 | Outpatient (BNV) | payer OTHER, SELFPAY | END 2025-07-05 17:10 | PROVIDERS: Admitting Provider Student in an Organized Health Care Education/Training Program; Emergency Provider Emergency Medicine; PCP Internal Medicine; Visit Provider Radiology Diagnostic Radiology | DX: R06.03 Acute respiratory distress (principal) | CPT/HCPCS: 71045 ==

== ENCOUNTER 2025-07-01 09:25 | Outpatient (BNV) | payer OTHER, SELFPAY | END 2025-07-04 19:45 | PROVIDERS: Admitting Provider Student in an Organized Health Care Education/Training Program; Emergency Provider Emergency Medicine; PCP Internal Medicine; Visit Provider Radiology Diagnostic Radiology | DX: N17.9 Acute kidney failure, unspecified (principal); N18.9 Chronic kidney disease, unspecified | CPT/HCPCS: 76775 ==

== ENCOUNTER → 2025-07-01 09:25 | Outpatient (BNV) | payer OTHER, SELFPAY | PROVIDERS: Admitting Provider Student in an Organized Health Care Education/Training Program; Emergency Provider Emergency Medicine; PCP Internal Medicine; Visit Provider Nurse Practitioner Psychiatric/Mental Health | DX: F10.20 Alcohol dependence, uncomplicated (principal) | CPT/HCPCS: 99221; 99231 ==

== ENCOUNTER → 2025-07-01 09:25 | Outpatient (BNV) | payer OTHER, SELFPAY | PROVIDERS: Admitting Provider Student in an Organized Health Care Education/Training Program; Emergency Provider Emergency Medicine; PCP Internal Medicine; Visit Provider Student in an Organized Health Care Education/Training Program | DX: F10.939 Alcohol use, unspecified with withdrawal, unspecified (principal); R56.9 Unspecified convulsions | CPT/HCPCS: 99222; 99232; 99239; 99499 ==

== ENCOUNTER 2025-07-07 17:45 | Emergency (ER) | payer OTHER, SELFPAY ==
[2025-07-07 18:13] VITALS: BP 161/77; PULSE 92; RESP 18; TEMP 36.6; O2SAT 97; BMI 21.6
--- NOTE | 2025-07-07 18:16 | ED.GENADULT ---
HPI - General Adult General Chief complaint: General Medical Stated complaint: back injury, (blacked out & fell)Swollen feet (CHF Time Seen by Provider: 07/07/25 23:00 Related Data Home Medications ?Medication ?Instructions ?Recorded ?Confirmed trazodone 50 mg tablet 100 mg PO BEDTIME 08/01/22 07/01/25 aspirin 81 mg tablet,delayed 81 mg PO DAILY 10/06/22 07/01/25 release atorvastatin 40 mg tablet 40 mg PO DAILY 10/06/22 07/01/25 metoprolol succinate 100 mg 100 mg PO DAILY 10/06/22 07/01/25 tablet,extended release 24 hr amlodipine 5 mg tablet 10 mg PO DAILY 06/02/24 07/01/25 insulin pump cartridge,automated 06/11/24 03/14/25 dose,BT with controller subcutaneous (Omnipod 5 G6 Intro Kit (Gen 5) subcutaneous cartridge with controller) omeprazole 40 mg capsule,delayed 40 mg PO DAILY@0630 07/15/24 07/01/25 release insulin lispro 100 unit/mL 100 unit subcut DIRECTED 11/19/24 07/01/25 subcutaneous solution sucralfate 1 gram tablet 1 g PO QID 01/14/25 07/01/25 torsemide 20 mg tablet 40 mg PO BEDTIME 05/28/25 07/01/25 torsemide 20 mg tablet 60 mg PO DAILY 05/28/25 07/01/25 albuterol sulfate 2.5 mg/3 mL 2.5 mg inhalation Q6H PRN wheezing 06/13/25 07/01/25 (0.083 %) solution for nebulization losartan 25 mg tablet 25 mg PO DAILY 06/13/25 07/01/25 magnesium oxide 400 mg (241.3 mg 400 mg PO DAILY 06/13/25 07/01/25 magnesium) tablet nicotine 21 mg/24 hr daily 21 mg transdermal DAILY PRN 06/13/25 07/01/25 transdermal patch Smoking Cessation escitalopram oxalate 20 mg tablet 20 mg PO DAILY 07/01/25 07/01/25 gabapentin 300 mg capsule 300 mg PO TID 07/01/25 07/01/25 ylpkxjxd-cztnsnha-pwktl acid 400 1 tab PO DAILY 07/01/25 07/01/25 mcg-vit K 20 mcg-lycop 300 mcg tablet (One-A-Day Men's Multivitamin) Previous Rx's ?Medication ?Instructions ?Recorded hydralazine 100 mg tablet 100 mg PO TID 30 days #90 tabs 05/09/23 ferrous sulfate 325 mg (65 mg 325 mg PO DAILY #30 tabs 01/15/25 iron) tablet (iron) naltrexone 50 mg tablet 50 mg PO DAILY 30 days #30 tabs 07/06/25 Allergies Allergy/AdvReac Type Severity Reaction Status Date / Time [facility] Allergy Unknown Verified 07/07/25 18:16 metformin (METFORMIN) AdvReac Mild DIARRHEA, Verified 07/07/25 18:16 nausea and vomiting PMFSH Past Medical History Medical History Tobacco use CKD (chronic kidney disease) stage 1, GFR 90 ml/min or greater YARELIS (obstructive sleep apnea) Acute on chronic diastolic (congestive) heart failure KELVIN (acute kidney injury) Chronic heart failure with preserved ejection fraction (HFpEF) Depression Acute on chronic anemia Anxiety HLD (hyperlipidemia) Diabetes HTN (hypertension) Asthma PAD (peripheral artery disease) Surgical History History of esophagogastroduodenoscopy S/P angiogram of extremity Family History Family History Father Alzheimer disease CAD (coronary artery disease) Social History Social History Household Members: None Household Members Other:: 4 Housing: Apartment Do you presently have visiting nurse or other home services: Yes ([facility]) Unable to assess alcohol history related to: Unknown Alcohol intake: current Alcohol intake frequency: holidays/special occasions only Alcohol type: hard liquor Comment: pt is independent in room Patient Tobacco Use Status: Current everyday Tobacco user Tobacco use type: Cigarette Cigarette Packs Per Day: 1 Cigarettes Per Day: 10 Years Smoked: 33 years Smoked in Last 30 Days: Yes e-Cigarette/Vaping Use: Currently Using Second Hand Smoke Exposure: No Use of substances other than those prescribed or required for medical reasons: Yes Substance Use Type: Marijuana Substance Use Frequency: Weekly Last Used Substance: Days (ago) Advance Directives: Yes Advance Directives on File: Yes Advance Directives Date on File: 06/21/21 Do you have a plan to hurt others: No Plan service: No Current occupational status: disabled Physical Exam ED Vital Signs: Vital Signs - 24 hr 07/07/25 18:13 07/07/25 22:46 Temperature 97.9 F 97.8 F Pulse Rate 92 89 Respiratory Rate 18 12 Blood Pressure 161/77 H 175/85 H Pulse Oximetry 97 99 Oxygen Delivery Method Room Air Room Air BMI result Body Mass Index 21.6 Course Course Course Narrative: Rapid medical examination performed in triage by Karla Deal PA-C. Patient is a 49 year old assigned male at presenting to the emergency department with multiple complaints including bilateral lower leg swelling, lightheadedness, and syncope. Detailed physical exam and review of systems are deferred to the fingerer. EKG, labs, imaging ordered. Patient placed back in the waiting room pending room availability and results. Medical Decision Making Lab Data 07/07/25 18:35 07/07/25 18:35 Labs: Lab Results 07/07/25 Range/Units 18:35 WBC 10.2 (4.8-10.8) X10*3/uL RBC 3.28 L (4.60-5.80) X10*6/uL Hgb 9.9 L (14.0-18.0) g/dl Hct 29.1 L (42.0-52.0) % MCV 88.7 (80.0-98.0) fL MCH 30.2 (27.0-33.0) pg MCHC 34.0 (31.0-36.0) g/dl RDW 19.3 H (11.0-16.0) % Plt Count 251 (160-400) X10*3/uL MPV 9.5 (9.4-12.4) fL Immature Gran % (Auto) 1.1 H (0.0-0.4) % Neut % (Auto) 81.0 H (45-73) % Lymph % (Auto) 9.6 L (20-40) % [place] % (Auto) 7.6 (2-11) % Eos % (Auto) 0.3 (0-4) % Baso % (Auto) 0.4 (0-2) % Lymph # (Auto) 1.0 L (1.2-4.9) X10*3/uL [place] # (Auto) 0.8 (0.1-1.2) X10*3/uL Eos # (Auto) 0.0 (0.0-0.4) X10*3/uL Baso # (Auto) 0.0 (0.0-0.2) X10*3/uL Abs Immat Gran (auto) 0.11 H (0.00-0.03) X10*3/uL Absolute Neuts (auto) 8.3 (2.0-8.3) x10*3/uL Absolute Nucleated RBC 0.000 (0.0-0.012) X10*3/uL Nucleated RBC % (auto) 0.0 (0.0-0.2) /100WBC Sodium 138 (135-145) mmol/L Potassium 4.4 (3.3-5.1) mmol/L Chloride 104 (96-108) mmol/L Carbon Dioxide 24 (22-29) mmol/L Anion Gap 14 (12-20) BUN 28 H (9-16) mg/dL Creatinine 1.63 H (0.5-1.4) mg/dL Estim Creat Clear Calc 45.2 Estimated GFR 45 Random Glucose 222 H (60-115) mg/dL Calcium 9.0 D (8.4-10.2) mg/dL Magnesium 1.5 L (1.6-2.6) mg/dL Total Bilirubin 0.1 (0.0-1.0) mg/dL AST 26 (5-37) U/L ALT 29 (0-40) U/L Alkaline Phosphatase 143 H (39-117) U/L Troponin I High Sens < 2.7 D (<3.5-35.0) ng/L B-Natriuretic Peptide 128 H (<100) pg/mL Total Protein 6.6 (6.5-8.0) g/dL Albumin 3.7 (3.5-5.0) g/dL Discharge Plan Discharge Clinical Impression: Syncope, vasovagal Patient Disposition: Home, Self-Care Instructions: Syncope (ED) Prescriptions: No Action hydralazine 100 mg tablet 100 mg PO TID 30 Days Qty: 90 5RF trazodone 50 mg tablet 100 mg PO BEDTIME atorvastatin 40 mg tablet 40 mg PO DAILY metoprolol succinate 100 mg tablet extended release 24 hr 100 mg PO DAILY amlodipine 5 mg tablet 10 mg PO DAILY omeprazole 40 mg capsule,delayed release(DR/EC) 40 mg PO DAILY@0630 sucralfate 1 gram tablet 1 g PO QID ferrous sulfate [iron] 325 mg (65 mg iron) tablet 325 mg PO DAILY Qty: 30 0RF gabapentin 300 mg capsule 300 mg PO TID escitalopram oxalate 20 mg tablet 20 mg PO DAILY One-A-Day Men's Multivitamin 400-20-300 mcg Tablet 1 tab PO DAILY naltrexone 50 mg Tablet 50 mg PO DAILY 30 Days Qty: 30 3RF (DME) Omnipod 5 G6 Intro Kit (Gen 5) Cartridge SUBCUT insulin lispro 100 unit/mL solution 100 unit subcut DIRECTED Rx Instructions: INJECT up to 100 UNITS DIRECTED SEE ADMIN INSTRUCTIONS. USE PER INSULIN PUMP Q3D. torsemide 20 mg tablet 40 mg PO BEDTIME torsemide 20 mg tablet 60 mg PO DAILY magnesium oxide 400 mg (241.3 mg magnesium) tablet 400 mg PO DAILY losartan 25 mg tablet 25 mg PO DAILY albuterol sulfate 2.5 mg /3 mL (0.083 %) solution for nebulization 2.5 mg inhalation Q6H PRN (Reason: wheezing) nicotine 21 mg/24 hr patch 24 hour 21 mg transdermal DAILY PRN (Reason: Smoking Cessation) aspirin 81 mg tablet,delayed release (DR/EC) 81 mg PO DAILY Referrals: [facility] [Physician, Medical] - 07/10/25 Print Language: Khmer
--- NOTE | 2025-07-07 18:17 | ECG_ITS ---
Test Reason : SYNCOPE Blood Pressure : */* mmHG Vent. Rate : 91 BPM Atrial Rate : 91 BPM P-R Int : 168 ms QRS Dur : 78 ms QT Int : 336 ms P-R-T Axes : 51 30 50 degrees QTcB Int : 413 ms Normal sinus rhythm Normal ECG When compared with ECG of 02-Jul-2025 07:47, Nonspecific T wave abnormality now evident in Lateral leads Referred By: Krala Deal Electronically Signed By: INOCENCIO BERGMAN MD
[2025-07-07 18:39] LABS: MANUAL DIFF FLAG NO
[2025-07-07 18:40] LABS: Hematocrit 29.1 % (42.0-52.0); Hemoglobin 9.9 g/dl (14.0-18.0); Imm Gran Abs Auto 0.11 X10*3/uL (0.00-0.03); Imm Gran Pct Auto 1.1 % (0.0-0.4); Lymphocytes Absolute Auto 1.0 X10*3/uL (1.2-4.9); Mean Corpuscular HGB Conc 34.0 g/dl (31.0-36.0); Mean Corpuscular Hemoglobin 30.2 pg (27.0-33.0); Mean Corpuscular Volume 88.7 fL (80.0-98.0); NRBC Abs Auto 0.000 X10*3/uL (0.0-0.012); NRBC Pct Auto 0.0 /100WBC (0.0-0.2); Platelet Count 251 X10*3/uL (160-400); Red Blood Count 3.28 X10*6/uL (4.60-5.80); White Blood Count 10.2 X10*3/uL (4.8-10.8)
[2025-07-07 18:53] LABS: Alanine Aminotransferase 29 U/L (0-40); Albumin Level 3.7 g/dL (3.5-5.0); Alkaline Phosphatase 143 U/L (39-117); Anion Gap 14 (12-20); Aspartate Amino Transferase 26 U/L (5-37); Blood Urea Nitrogen 28 mg/dL (9-16); Calcium 9.0 mg/dL (8.4-10.2); Carbon Dioxide 24 mmol/L (22-29); Chloride 104 mmol/L (96-108); Creatinine Clr Calc Pharmacy 45.2; Estimated Glomerular Filt Rate 45; Magnesium 1.5 mg/dL (1.6-2.6); Potassium 4.4 mmol/L (3.3-5.1); Sodium 138 mmol/L (135-145); Total Protein 6.6 g/dL (6.5-8.0)
[2025-07-07 18:59] LABS: B Type Natriuretic Peptide 128 pg/mL (<100)
[2025-07-07 19:01] LABS: Troponin-I High Sensitivity < 2.7 ng/L (<3.5-35.0)
--- OUTSIDE RECORDS SUMMARY | 2025-07-07 22:40 | XMS_ITS | Encounter Summary ---
Author Organization [facility] Address [address] [place] [address] Care Team Providers Care Ab Initio Etl Developer Name Role Phone Zari Henry MD Primary Care Provider [phone] Reason for Visit * Reason Onset Date Comments Hospitalization/ER 07/07/2025 Seizures 07/07/2025 Foot Swelling 07/07/2025 Encounter Details Date Type Department Care Team (Late st Contact Info) Description 07/07/2025 Telephone Adult Medicine [facility] [address] [place], [place] [phone] Zari Henry MD [address] [place], [place] Social History Tobacco Use Types Packs/Day [...] Progress Notes * Carrillo Delgado RN - 07/07/2025 4:26 PM EDT Called and spoke with pt. Pt sts this morning was making a cigarette and blacked out sts I dont know what happen but woke up on bed. Bed was behind pt making a cigarette. Advised to go back to er forevaluation un witness syncopal episode * Shannan Lawton - 07/07/2025 3:00 PM EDT Hospital/ER follow up appointment needed Hospital patient was treated at: [facility] Was this only an ER visit or was the patient admitted to the hospital? Admitted to the hospital/kept overnight Date of visit if ER visit only: If patient was admitted what was the date of discharge? 07/06/25 Reason/diagnosis for visit or stay: seizure, patient states he doesn't feel right since the seizure, states he blacked out this morning. He states his feet are swollen and were also when he was discharged, taking a water pill. His lab work was fine prior to discharge and he wanted to go home. Please advise. When was the patient told to follow up? Within one week Was visit or stay related to an injury? If yes, what was the date of injury (DOI)? No If yes, was the injury due to: Not 3rd republican related Patient call requires triage: Symptoms patient is presenting: initially did a hospital f/u call encounter but patient is still having some issues. See above, swollen feet, feels he blacked out this morning, his bed broke his fall. States he was in the hospital for about 7 days, was at his brother's house and drank too much, hada seizure about a week ago. Apologies for two types of messages. How long has patient had these symptoms?: about a week ago had seizure. For ALL patients calling to schedule any appointment (routine, sick visit, follow up, consult, etc.) in the outpatient setting please ask the following questions: Do you have fever of higher than 101, sore throat with difficulty swallowing or severe shortness ofbreath? no If YES to any of these above symptoms, send a message to triage and do not book. Red dot. If no, an audio or video visit should be booked. Have you had close contact with someone with Coronavirus in the last 14 days? no Have you traveled abroad? no Have you traveled recently to another state outside of [place], [place], [place], [place], [place], [place], [place]? no o If yes, did you quarantine for 14 days or have a negative covid test? no If yes to any of the above, patient is not to be scheduled in office until after 14 day quarantine or negative covid test. If pain or injury related was it due to an accident at work or from a motor vehicle accident? If yes, date of accident/Injury: No If yes, gather 3rd republican insurance information Third Democrat Information: not applicable PCP: Zari Henry MD Payor: [employer] PLAN / Plan: [employer] MEDICAID / Product Type: *No Product type* / documented in this encounter Plan of Treatment Upcoming Encounters Date Type Department Care Team (Late st Contact Info) Description 08/25/2025 2:30 PM EDT Office Visit Adult Medicine [facility] [address] [place] [address] Nadege Begum PA [address] [place], [place] 09/03/2025 2:00 PM EST Consult Orthopedic Surgery - [place] [address] [phone] Rivas Norman DPM [address] [address] 09/08/2025 2:15 PM EST Office Visit Pulmonolgy - [place] 175 [facility] [address] [place] [phone] Nisa Machado MD 175 [facility] 200 [place] [address] documented as of this encounter Visit Diagnoses Not on filedocumented in this encounter Care Teams Ab Initio Etl Developer Relationship Specialty Start Date End Date Zari Henry MD [address] [place] [address] PCP - General Internal Medicine 08/17/21 documented as of this encounter
--- OUTSIDE RECORDS SUMMARY | 2025-07-07 22:40 | XMS_ITS | Clinical Summary ---
Author Organization [facility] Address [address] [place] [address] Phone Care Team Providers Care Packaging Clerk Name Role Phone Zari Henry MD Primary Care Provider [phone] Allergies Active Allergy Reactions Criticality Noted Date [...] ions:Type 2 diabetes mellitus with diabetic nephropathy ([facility] V24, [facility] V28) INJECT 100 UNITS DIRECTED SEE [...] mellitus), type 2 with peripheral vascular complications ([facility] [place], [facility] V[place]) INJECT [...] mellitus), type 2 with peripheral vascular complications ([facility] [place], [facility] V28) 12/05/2024 MAGDA (iron deficiency anemia) 04/06/2023 Requires supplemental oxygen 04/06/2023 CHF (congestive heart failure) ([facility] [place], [facility] V28) 01/06/2023 Obstructive sleep apnea syndrome 05/09/2022 Adrenal mass ([facility] V24) 03/24/2022 Claudication of both lower extremities ([facility] V24) 12/27/2021 Sleep related hypoxia 08/17/2021 Overview (07/12/2024): On oxygen at nighttime Asthma-COPD overlap syndrome ([facility] V24, [facility] V28) 08/17/2021 Overview (12/11/2024): Microscopic hematuria 12/25/2020 Overview (11/29/2024): Normal renal ultrasound, referred to urology for further work-up Condyloma acuminata 11/18/2020 Overview (11/29/2024): Condyloma acuminata 11/19 penis PAD (peripheral artery disease) ([facility] V24) Overview (11/29/2024): With LLE angioplasty 01/2020 Polycythemia 06/04/2018 Anxiety 08/01/2017 Microalbuminuria 04/14/2017 Depression 01/31/2017 HTN (hypertension), benign 01/31/2017 Hyperlipidemia 01/31/2017 Resolved Problems Problem Noted Date Diagnosed Date Resolved Date Type 2 diabetes mellitus ([facility] V24, [facility] V28) 01/31/2017 12/05/2024 Encounters Date Type Department Care Team Description 07/07/2025 Telephone Adult Medicine [address] [phone] Zari eHnry MD 06/25/2025 Telephone Pulmonolgy - [address] [place] [address] Nisa Machado MD 06/23/2025 Billing Patient Not Present Adult Medicine [address] [phone] Zari Henry MD 06/20/2025 1:00 PM EDT Office Visit Adult Medicine [address] [phone] Zari Henry MD Tachycardia (Primary Dx); COPD exacerbation ([facility] V24, [facility] V28); KELVIN (acute kidney injury) ([facility] V24); Dehydration; Diarrhea, unspecified type; HTN (hypertension), benign; Acute on chronic right-sided congestive heart failure ([facility] V24, [facility] V28); DM (diabetes mellitus), type 2 with peripheral vascular complications ([facility] V24, [facility] V28); PVD (peripheral vascular disease) ([facility] V24); Claudication of both lower extremities ([facility] V24) 06/17/2025 Telephone Adult [address] [phone] Zari Henry MD 06/16/[address] [phone] Zari Henry MD 06/12/2025 Telephone Adult [address] [phone] Zari Henry MD 05/30/2025 Telephone Adult [address] [phone] Zari Henry MD 05/30/[address] [phone] Zari Henry MD 05/30/[address] [phone] Zari Henry MD 05/22/2025 Telephone Adult [address] [phone] John Pulido LPN 04/28/[address] [phone] Lea Alex PA 04/23/2025 3:30 PM EDT Office Visit [address] [phone] Zari Henry MD DM (diabetes mellitus), type 2 with peripheral vascular complications ([facility] V24, [facility] V28) (Primary Dx); Other hyperlipidemia; Acute on chronic right-sided congestive heart failure ([facility] V24, [facility] V28); HTN (hypertension), benign; Pain in both feet; Skin lesion 04/22/2025 3:30 PM EDT [facility] [address] [place] [address] Nisa Machado MD Asthma-COPD overlap syndrome ([facility] V24, [facility] V28) (Primary Dx); Obstructive sleep apnea syndrome; Acute on chronic right-sided congestive heart failure ([facility] V24, [facility] V28) 04/10/2025 Billing Patient Not Present Adult Medicine [address] [phone] Zari Henry MD 04/10/2025 Telephone Adult Medicine [address] [phone] Zari Henry MD from Last 3 Months [...] (diabetes mellitus), type 2 with renal complications ([facility] V24, [facility] V28) 01/31/2017 Microalbuminuria 04/14/2017 Polycythemia 06/04/2018 Condyloma acuminata 11/18/2020 Condyloma ac uminata 11/19 penis YARELIS (obstructive sleep apnea) 05/09/2022 CHF (congestive heart failur e) ([facility] V24, [facility] V28) 01/06/2023 DM (diabetes mellitus), type 2 with peripheral vascular complications ([facility] V24, [facility] V28) 12/05/2024 [...] PM EDT Office Visit Adult Medicine [facility] [address] [place], [place] [phone] Nadege Begum PA [address] [place], [place] 09/03/2025 2:00 PM EST Consult Orthopedic Surgery - [place] [address] 175 [facility] [address] [place] [phone] Rivas Norman DPM [address] [facility] [address] [place] [address] 09/08/2025 2:15 PM EST Office Visit Pulmonolgy [facility] 175 [facility] 200 [place] [phone] Nisa Machado MD [address] [facility] 200 [place] [address] Health Maintenance Due Date Last Done Comments [...] 2024 Depression Screening 10/30/2024 COVID-19 Vaccine ( season) 2025 08/15/2022, 03/18/2021, 02/10/2021 Influenza Vaccine [...] Hemoglobin A1c (02/06/2025 2:04 PM EDT) Pathologist [facility] Hemoglobin A1C 8.1(H) <6.5 % LAB CHEMISTRY METHOD 02/07/2025 11:[address] [facility] Mean Bld Glu Estim. 186 mg/dL LAB CHEMISTRY METHOD 02/07/2025 11:[address] [facility] Blood Venous blood specimen / Unknown Venipuncture / Unknown 02/06/2025 2:04 PM EDT 02/06/2025 2:04 PM EDT us Zari Henry MD LAB BLOOD ORDERABLES Final Resul t [facility] [address] [place] [address], * (ABNORMAL) Basic metabolic panel (02/06/2025 2:04 PM EDT) [facility] Sodium 136 133 - 145 mmol/L LAB CHEMISTRY METHOD 02/06/2025 5:07 PM [facility] Potassium 4.2 3.5 - 5.5 mmol/L LAB CHEMISTRY METHOD 02/06/2025 5:07 PM [facility] Chloride 99 96 - 110 mmol/L LAB CHEMISTRY METHOD 02/06/2025 5:07 PM [facility] CO2 28 21 - 32 mmol/L LAB CHEMISTRY METHOD 02/06/2025 5:07 PM [facility] Anion Gap 9 3 - 11 LAB CHEMISTRY METHOD 02/06/2025 5:07 PM [facility] Glucose 317(H) 70 - 100 mg/dL LAB CHEMISTRY METHOD 02/06/2025 5:07 PM [facility] BUN 25 5 - 25 mg/dL LAB CHEMISTRY METHOD 02/06/2025 5:[address] [facility] Creatinine 1.91(H) 0.70 - 1.30 mg/dL LAB CHEMISTRY METHOD 02/06/2025 5:[address] [facility] eGFR 42(L) >=60 mL/min/1. 73m2 LAB CHEMISTRY METHOD 02/06/2025 5:[address] [facility] Comment:Calculation based on the Chronic Kidney Disease Epidemiology Collaboration (CKD-EPI) equation refit without adjustment for race. BUN/Creatinine Ratio 13.1 LAB CHEMISTRY METHOD 02/06/2025 5:[address] [facility] Calcium 9.5 8.5 - 10.5 mg/dL LAB CHEMISTRY METHOD 02/06/2025 5:[address] [facility] Blood Venous blood specimen / Unknown Venipuncture / Unknown 02/06/2025 2:04 PM EDT 02/06/2025 2:04 PM EDT us Zari Henry MD LAB BLOOD ORDERABLES Final Resul t [facility] [address] [place] [address], from Last 3 Months or Most Recently Relevant to Health Maintenance Insurance [id number] [place] [address] [facility] PL[facility] Care Teams Packaging Clerk Relationship Specialty Start Date End Date Zari Henry MD [address] [place] [address] PCP - General Internal Medicine 08/17/21
--- OUTSIDE RECORDS SUMMARY | 2025-07-07 22:40 | XMS_ITS | Clinical Summary ---
Author Organization [facility] Address [address] [place] [address] Care Team Providers Care Advertising Strategist Name Role Phone Zari Henry MD Primary Care Provider [phone] Allergies Active Allergy Reactions Criticality Noted Date [...] age to complete this topic Care Teams Advertising Strategist Relationship Specialty Start Date End Date Zari Henry MD PCP - General Internal Medicine 01/21/22
--- OUTSIDE RECORDS SUMMARY | 2025-07-07 22:40 | XMS_ITS | Encounter Summary ---
Author Organization [facility] Address [address] [place] [address] Care Team Providers Care Mixer Blender Name Role Phone Zari Henry MD Primary Care Provider [phone] Reason for Visit * Reason Onset Date Comments Hospital Follow-up 06/17/2025 Encounter Details Date Type Department Care Team (Late st Contact Info) Description 06/17/2025 Telephone Adult Medicine [facility] [address] [place], [place] [phone] Zari Henry MD [address] [place], [place] Social History Tobacco Use Types Packs/Day [...] PM EDT Office Visit Adult Medicine [facility] [address] [place], [place] [phone] Nadege Begum PA [address] [place], [place] 09/03/2025 2:00 PM EST Consult Orthopedic Surgery - [place] [address] [phone] Rivas Norman DPM [address] [address] 09/08/2025 2:15 PM EST Office Visit Pulmonolgy - [place] 175 [facility] 200 [place] [address] Nisa Machado MD [address] [address] documented as of this encounter Visit Diagnoses Not on filedocumented in this encounter Care Teams Mixer Blender Relationship Specialty Start Date End Date Zari Henry MD [address] [place], [place] PCP - General Internal Medicine 08/17/21 documented as of this encounter
--- OUTSIDE RECORDS SUMMARY | 2025-07-07 22:40 | XMS_ITS | Encounter Summary ---
Author Organization [facility] Address [address] [place] [address] Care Team Providers Care Academic Affairs Vice President Name Role Phone Zari Henry MD Primary Care Provider Encounter Details Date Type Department Care Team (Late st Contact Info) Description 01/30/2025 Billing Patient Not Present Adult Medicine [address] [phone] Zari Henry MD [address] [place], [place] Social History Tobacco Use Types Packs/Day [...] 2:30 PM EDT Office Visit Adult Medicine [address] [phone] Nadege Begum PA [address] [place], [place] 09/03/2025 2:00 PM EST Consult Orthopedic Surgery - [employer] [address] [phone] Rivas Norman DPM [address] [address] 09/08/2025 2:15 PM EST Office Visit Pulmonolgy - [employer] [address] [phone] Nisa Machado MD [address] [phone] documented as of this encounter Visit Diagnoses Not on filedocumented in this encounter Care Teams Academic Affairs Vice President Relationship Specialty Start Date End Date Zari Henry MD [address] [place], [place] PCP - General Internal Medicine 08/17/21 documented as of this encounter
--- OUTSIDE RECORDS SUMMARY | 2025-07-07 22:40 | XMS_ITS | Clinical Summary ---
Author Organization [facility] Address [address] [facility] [address] [place] [address] Phone Care Team Providers Care Bridge Rigger Name Role Phone Zari Henry MD Primary Care Provider [phone] Allergies Active Allergy Reactions Criticality Noted Date [...] 12/11/19 26 Active ergocalciferol (Drisdol) 1.25 MG (57812 UT) capsule Take 1 capsule (50,000 Units [...] Office Visit [facility] [address] [phone] Jong Hall MD Stage 3 chronic kidney [...] [facility] [address] [address] Jong Hall MD [address] [phone] Health Maintenance Due Date Last Done Comments [...] Creatinine, Ur 378.0 Not Estab. mg/dL [facility] Albumin, Urine 1,229.7 Not Estab. ug/mL [facility] Comment: Results confirmed on dilution. Albumin/Creatin ine Ratio 325(H) 0 - 29 mg/g creat [facility] Comment: Normal: 0 - 29 Moderately increased: 30 - 300 Severely increased: >300 05/20/2025 11:2 1 AM EDT 05/20/2025 us Jong Hall MD LAB URINE ORDERABLES Final Resul t Performing Organization Address [facility] Co de Phone Number [place] [address] [place] [address] * (ABNORMAL) Vitamin D 25 Hydroxy (05/20/2025 11:21 AM EDT) Vitamin D, 25-OH, Total 10.8(L) 30.0 - 100.0 ng/mL [email or web address] Comment: Vitamin D deficiency has been defined by the [place] of Medicine and an Endocrine Society practice guideline as a level of serum 25-OH vitamin D less than 20 ng/mL (1,2). The Endocrine Society went on to further define vitamin D insufficiency as a level between 21 and 29 ng/mL (2). 1. IOM ([place] of Medicine). 2010. Dietary reference intakes for calcium and D. Law [place]: The National Academies Press. 2. Rochelle MF, Vickie JAMES, Ramses DOYLE, et al. Evaluation, treatment, and prevention of vitamin D deficiency: an Endocrine Society clinical practice guideline. JCEM. 2010; 96(7):1911-30. 05/20/2025 11:2 1 AM EDT 05/20/2025 us Jong Hall MD LAB BLOOD ORDERABLES Final Resul t Performing Organization Address [facility] Co de Phone Number [facility] [address] [place] [address] * PTH, Intact (05/20/2025 11:21 AM EDT) PTH 43 15 - 65 pg/mL [email or web address] 05/20/2025 11:2 1 AM EDT 05/20/2025 us Jong Hall MD LAB BLOOD ORDERABLES Final Resul t Performing Organization Address [facility] Co de Phone Number [employer] [facility] [address] [place] [address] * (ABNORMAL) Renal Function Panel (05/20/2025 11:21 AM EDT) Glucose 150(H) 70 - 99 mg/dL [facility] BUN 18 6 - 24 mg/dL [facility] Creatinine 1.71(H) 0.76 - 1.27 mg/dL [facility] eGFR CKD-EPI CR 2020 48(L) >59 mL/min/1.7 3 [facility] BUN/Creatinine Ratio 11 9 - 20 [facility] Sodium 139 134 - 144 mmol/L [facility] Potassium 4.2 3.5 - 5.2 mmol/L [facility] Chloride 104 96 - 106 mmol/L [facility] Bicarbonate (CO2) 18(L) 20 - 29 mmol/L [facility] Calcium 8.9 8.7 - 10.2 mg/dL [facility] Albumin 3.9(L) 4.1 - 5.1 g/dL [facility] Phosphorus 2.4(L) 2.8 - 4.1 mg/dL [facility] 05/20/2025 11:2 1 AM EDT 05/20/2025 Jong Hall MD LAB BLOOD ORDERABLES Final Resul t [employer] [facility] [address] [place] [address] from Last [id number] [place] [id number] [facility] Medicaid [address] [place] [id number] Care Teams Bridge Rigger Relationship Specialty Start Date End Date Zari Henry MD [address] [place] [address] PCP - General Internal Medicine 12/09/24
--- OUTSIDE RECORDS SUMMARY | 2025-07-07 22:40 | XMS_ITS | Encounter Summary ---
Author Organization [facility] Address [address] [place] [address] Care Team Providers Care Day Porter Name Role Phone Zari Henry MD Primary Care Provider Encounter Details Date Type Department Care Team (Late st Contact Info) Description 01/09/2025 Billing Patient Not Present Adult Medicine [address] [phone] Zari Henry MD [address] [place], [place] Social History Tobacco Use Types Packs/Day [...] 2:30 PM EDT Office Visit Adult Medicine [address] [phone] Nadege Begum PA [address] [place], [place] 09/03/2025 2:00 PM EST Consult Orthopedic Surgery - [place] [address] [phone] Rivas Norman DPM [address] [address] 09/08/2025 2:15 PM EST Office Visit Pulmonolgy - [place] [address] [phone] Nisa Machado MD [address] [address] documented as of this encounter Visit Diagnoses Not on filedocumented in this encounter Care Teams Day Porter Relationship Specialty Start Date End Date Zari Henry MD [address] [place], [place] PCP - General Internal Medicine 08/17/21 documented as of this encounter
--- OUTSIDE RECORDS SUMMARY | 2025-07-07 22:40 | XMS_ITS | Encounter Summary ---
Author Organization [facility] Address [address] [place] [address] Care Team Providers Care Gas Mask Assembler Name Role Phone Zari Henry MD Primary Care Provider [phone] Encounter Details Date Type Department Care Team (Late st Contact Info) Description 02/14/2025 Billing Patient Not Present Adult Medicine [address] [phone] Zari Henry MD [address] [place], [place] Social History Tobacco Use Types Packs/Day [...] 2:30 PM EDT Office Visit Adult Medicine [address] [phone] Nadege Begum PA [address] [place], [place] 09/03/2025 2:00 PM EST Consult Orthopedic Surgery - [place] [address] [phone] Rivas Norman DPM [address] [address] 09/08/2025 2:15 PM EST Office Visit Pulmonolgy - [place] [address] [phone] Nisa Machado MD [address] [phone] documented as of this encounter Visit Diagnoses Not on filedocumented in this encounter Care Teams Gas Mask Assembler Relationship Specialty Start Date End Date Zari Henry MD [address] [place], [place] PCP - General Internal Medicine 08/17/21 documented as of this encounter
--- OUTSIDE RECORDS SUMMARY | 2025-07-07 22:40 | XMS_ITS | Encounter Summary ---
Author Organization [facility] Address [address] [place] [address] Care Team Providers Care Analog Design Engineer Name Role Phone Zari Henry MD Primary Care Provider Encounter Details Date Type Department Care Team (Late st Contact Info) Description 04/10/2025 Billing Patient Not Present Adult Medicine [address] [phone] Zari Henry MD [address] [place], [place] Social History Tobacco Use Types Packs/Day [...] 2:30 PM EDT Office Visit Adult Medicine [address] [phone] Nadege Begum PA [address] [place], [place] 09/03/2025 2:00 PM EST Consult Orthopedic Surgery - [place] [address] [phone] Rivas Norman DPM [address] [address] 09/08/2025 2:15 PM EST Office Visit Pulmonolgy - [place] [address] [phone] Nisa Machado MD [address] [address] documented as of this encounter Visit Diagnoses Not on filedocumented in this encounter Care Teams Analog Design Engineer Relationship Specialty Start Date End Date Zari Henry MD [address] [place], [place] PCP - General Internal Medicine 08/17/21 documented as of this encounter
[2025-07-07 22:46] VITALS: BP 175/85; PULSE 89; RESP 12; TEMP 36.6; O2SAT 99
--- NOTE | 2025-07-08 01:09 | ED.GENADULT ---
HPI - General Adult General Chief complaint: General Medical Stated complaint: back injury, (blacked out & fell)Swollen feet (CHF Time Seen by Provider: 07/07/25 23:00 History of Present Illness HPI narrative: Patient has a history of EtOH. Was just discharged yesterday for alcohol withdrawal. Patient is stood up felt lightheaded. Fellow dizzy then blacked out. Denies hitting his head. Denies any chest pain. There is told to come back to the ED. his legs are swollen but that is chronic. Patient denies any fever chills no chest pain or shortness of breath no diaphoresis currently ambulates well. No focal weakness Related Data Home Medications ?Medication ?Instructions ?Recorded ?Confirmed trazodone 50 mg tablet 100 mg PO BEDTIME 08/01/22 07/01/25 aspirin 81 mg tablet,delayed 81 mg PO DAILY 10/06/22 07/01/25 release atorvastatin 40 mg tablet 40 mg PO DAILY 10/06/22 07/01/25 metoprolol succinate 100 mg 100 mg PO DAILY 10/06/22 07/01/25 tablet,extended release 24 hr amlodipine 5 mg tablet 10 mg PO DAILY 06/02/24 07/01/25 insulin pump cartridge,automated 06/11/24 03/14/25 dose,BT with controller subcutaneous (Omnipod 5 G6 Intro Kit (Gen 5) subcutaneous cartridge with controller) omeprazole 40 mg capsule,delayed 40 mg PO DAILY@0630 07/15/24 07/01/25 release insulin lispro 100 unit/mL 100 unit subcut DIRECTED 11/19/24 07/01/25 subcutaneous solution sucralfate 1 gram tablet 1 g PO QID 01/14/25 07/01/25 torsemide 20 mg tablet 40 mg PO BEDTIME 05/28/25 07/01/25 torsemide 20 mg tablet 60 mg PO DAILY 05/28/25 07/01/25 albuterol sulfate 2.5 mg/3 mL 2.5 mg inhalation Q6H PRN wheezing 06/13/25 07/01/25 (0.083 %) solution for nebulization losartan 25 mg tablet 25 mg PO DAILY 06/13/25 07/01/25 magnesium oxide 400 mg (241.3 mg 400 mg PO DAILY 06/13/25 07/01/25 magnesium) tablet nicotine 21 mg/24 hr daily 21 mg transdermal DAILY PRN 06/13/25 07/01/25 transdermal patch Smoking Cessation escitalopram oxalate 20 mg tablet 20 mg PO DAILY 07/01/25 07/01/25 gabapentin 300 mg capsule 300 mg PO TID 07/01/25 07/01/25 ciunsjqc-lmjfjyeg-yylcw acid 400 1 tab PO DAILY 07/01/25 07/01/25 mcg-vit K 20 mcg-lycop 300 mcg tablet (One-A-Day Men's Multivitamin) Previous Rx's ?Medication ?Instructions ?Recorded hydralazine 100 mg tablet 100 mg PO TID 30 days #90 tabs 05/09/23 ferrous sulfate 325 mg (65 mg 325 mg PO DAILY #30 tabs 01/15/25 iron) tablet (iron) naltrexone 50 mg tablet 50 mg PO DAILY 30 days #30 tabs 07/06/25 Allergies Allergy/AdvReac Type Severity Reaction Status Date / Time dulaglutide (From [facility]) Allergy Unknown Verified 07/07/25 18:16 metformin (METFORMIN) AdvReac Mild DIARRHEA, Verified 07/07/25 18:16 nausea and vomiting Review of Systems Review of Systems: No chest pain or diaphoresis Yes all other systems are reviewed and are negative [facility] Past Medical History Attestation statement: The following information was validated with the patient. Medical History Tobacco use CKD (chronic kidney disease) stage 1, GFR 90 ml/min or greater YARELIS (obstructive sleep apnea) Acute on chronic diastolic (congestive) heart failure KELVIN (acute kidney injury) Chronic heart failure with preserved ejection fraction (HFpEF) Depression Acute on chronic anemia Anxiety HLD (hyperlipidemia) Diabetes HTN (hypertension) Asthma PAD (peripheral artery disease) Surgical History History of esophagogastroduodenoscopy S/P angiogram of extremity Family History Family History Father Alzheimer disease CAD (coronary artery disease) Social History Social History Household Members: None Household Members Other:: 4 Housing: Apartment Do you presently have visiting nurse or other home services: Yes ([facility]) Unable to assess alcohol history related to: Unknown Alcohol intake: current Alcohol intake frequency: holidays/special occasions only Alcohol type: hard liquor Comment: pt is independent in room Patient Tobacco Use Status: Current everyday Tobacco user Tobacco use type: Cigarette Cigarette Packs Per Day: 1 Cigarettes Per Day: 10 Years Smoked: 33 years Smoked in Last 30 Days: Yes e-Cigarette/Vaping Use: Currently Using Second Hand Smoke Exposure: No Use of substances other than those prescribed or required for medical reasons: Yes Substance Use Type: Marijuana Substance Use Frequency: Weekly Last Used Substance: Days (ago) Advance Directives: Yes Advance Directives on File: Yes Advance Directives Date on File: 06/21/21 Do you have a plan to hurt others: No Plan service: No Current occupational status: disabled Physical Exam ED Vital Signs: Vital Signs - 24 hr 07/07/25 18:13 07/07/25 22:46 Temperature 97.9 F 97.8 F Pulse Rate 92 89 Respiratory Rate 18 12 Blood Pressure 161/77 H 175/85 H Pulse Oximetry 97 99 Oxygen Delivery Method Room Air Room Air BMI result Body Mass Index 21.6 Medical Decision Making Medical Decision Making MDM Narrative: Patient was just discharged from the hospital yesterday. Alcohol withdrawal seizure-none since admission Patient is a 49-year-old with current AUD, marijuana use, current cigarette smoker, poor historian, 49 years old man with past medical history significant for HFpEF, COPD on oxygen, PAD, essential hypertension, CKD stage 3, hyperlipidemia and type 2 diabetes on insulin who presented less than 2 weeks since last admission for COPD exacerbation. Was noted to have alc withdrawal seizures , started on Phenobarb all which she tolerated well. Patient has a [facility] after discharge for his alcohol use disorder. He is being prescribed naltrexone for maintaining sobriety until his appointment. His labs show a BNP of 128 no extreme congestive heart failure as patient is able to lie flat. Patient's hemoglobin is 10 this approximately baseline. Patient denies noticing any blood in the stool. Patient's electrolytes shows an elevated BUN and creatinine likely related to dehydration he states he wants to drink fluids at home. Does not want to stay. We did 1 set of troponin they were negative. My interpretation patient's EKG showed a sinus rhythm heart rate is 90 [place] QRS QTC normal no acute ST segment elevation not orthostatic well-appearing were discharged home Differential Diagnosis Differential Diagnoses: The differential diagnosis associated with the presentation includes Alcohol related illness alcohol withdrawal electrolyte disturbance dehydration Admission/Observation Consideration of admission/observation: Escalation of care including admission/observation considered Lab Data MDM Lab Attestation statement: I reviewed the patient's lab results. 07/07/25 18:35 07/07/25 18:35 Labs: Lab Results 07/07/25 Range/Units 18:35 WBC 10.2 (4.8-10.8) X10*3/uL RBC 3.28 L (4.60-5.80) X10*6/uL Hgb 9.9 L (14.0-18.0) g/dl Hct 29.1 L (42.0-52.0) % MCV 88.7 (80.0-98.0) fL MCH 30.2 (27.0-33.0) pg MCHC 34.0 (31.0-36.0) g/dl RDW 19.3 H (11.0-16.0) % Plt Count 251 (160-400) X10*3/uL MPV 9.5 (9.4-12.4) fL Immature Gran % (Auto) 1.1 H (0.0-0.4) % Neut % (Auto) 81.0 H (45-73) % Lymph % (Auto) 9.6 L (20-40) % [place] % (Auto) 7.6 (2-11) % Eos % (Auto) 0.3 (0-4) % Baso % (Auto) 0.4 (0-2) % Lymph # (Auto) 1.0 L (1.2-4.9) X10*3/uL [place] # (Auto) 0.8 (0.1-1.2) X10*3/uL Eos # (Auto) 0.0 (0.0-0.4) X10*3/uL Baso # (Auto) 0.0 (0.0-0.2) X10*3/uL Abs Immat Gran (auto) 0.11 H (0.00-0.03) X10*3/uL Absolute Neuts (auto) 8.3 (2.0-8.3) x10*3/uL Absolute Nucleated RBC 0.000 (0.0-0.012) X10*3/uL Nucleated RBC % (auto) 0.0 (0.0-0.2) /100WBC Sodium 138 (135-145) mmol/L Potassium 4.4 (3.3-5.1) mmol/L Chloride 104 (96-108) mmol/L Carbon Dioxide 24 (22-29) mmol/L Anion Gap 14 (12-20) BUN 28 H (9-16) mg/dL Creatinine 1.63 H (0.5-1.4) mg/dL Estim Creat Clear Calc 45.2 Estimated GFR 45 Random Glucose 222 H (60-115) mg/dL Calcium 9.0 D (8.4-10.2) mg/dL Magnesium 1.5 L (1.6-2.6) mg/dL Total Bilirubin 0.1 (0.0-1.0) mg/dL AST 26 (5-37) U/L ALT 29 (0-40) U/L Alkaline Phosphatase 143 H (39-117) U/L Troponin I High Sens < 2.7 D (<3.5-35.0) ng/L B-Natriuretic Peptide 128 H (<100) pg/mL Total Protein 6.6 (6.5-8.0) g/dL Albumin 3.7 (3.5-5.0) g/dL Independent Interpretation I performed an independent interpretation of an: EKG Discharge Plan Discharge Clinical Impression: Syncope, vasovagal Patient Disposition: Home, Self-Care Instructions: Syncope (ED) Prescriptions: No Action hydralazine 100 mg tablet 100 mg PO TID 30 Days Qty: 90 5RF trazodone 50 mg tablet 100 mg PO BEDTIME atorvastatin 40 mg tablet 40 mg PO DAILY metoprolol succinate 100 mg tablet extended release 24 hr 100 mg PO DAILY amlodipine 5 mg tablet 10 mg PO DAILY omeprazole 40 mg capsule,delayed release(DR/EC) 40 mg PO DAILY@0630 sucralfate 1 gram tablet 1 g PO QID ferrous sulfate [iron] 325 mg (65 mg iron) tablet 325 mg PO DAILY Qty: 30 0RF gabapentin 300 mg capsule 300 mg PO TID escitalopram oxalate 20 mg tablet 20 mg PO DAILY One-A-Day Men's Multivitamin 400-20-300 mcg Tablet 1 tab PO DAILY naltrexone 50 mg Tablet 50 mg PO DAILY 30 Days Qty: 30 3RF (DME) Omnipod 5 G6 Intro Kit (Gen 5) Cartridge SUBCUT insulin lispro 100 unit/mL solution 100 unit subcut DIRECTED Rx Instructions: INJECT up to 100 UNITS DIRECTED SEE ADMIN INSTRUCTIONS. USE PER INSULIN PUMP Q3D. torsemide 20 mg tablet 40 mg PO BEDTIME torsemide 20 mg tablet 60 mg PO DAILY magnesium oxide 400 mg (241.3 mg magnesium) tablet 400 mg PO DAILY losartan 25 mg tablet 25 mg PO DAILY albuterol sulfate 2.5 mg /3 mL (0.083 %) solution for nebulization 2.5 mg inhalation Q6H PRN (Reason: wheezing) nicotine 21 mg/24 hr patch 24 hour 21 mg transdermal DAILY PRN (Reason: Smoking Cessation) aspirin 81 mg tablet,delayed release (DR/EC) 81 mg PO DAILY Referrals: [facility] [Physician, Medical] - 07/10/25 Print Language: [place] Islander
[2025-07-08 01:12] VITALS: BP 169/94; PULSE 96
[2025-07-08 01:15] VITALS: BP 170/85; PULSE 95
[2025-07-08 01:18] VITALS: BP 176/89; PULSE 98
[2025-07-08 01:46] VITALS: BP 176/95; PULSE 95; RESP 16; TEMP 36.7; O2SAT 98
[2025-07-08 01:57] VITALS: BP 176/95; PULSE 95; RESP 16; TEMP 36.7; O2SAT 98
== END 2025-07-08 02:00 | disposition home or self-care (01) ==
PROVIDERS: Physician Assistant Medical; Emergency Provider Emergency Medicine Emergency Medical Services
DX: R55 Syncope and collapse (principal); I12.9 Hypertensive chronic kidney disease with stage 1 through stage 4 chronic kidney disease, or unspecified chronic kidney disease; E13.22 Other specified diabetes mellitus with diabetic chronic kidney disease; N18.1 Chronic kidney disease, stage 1
CPT/HCPCS: 36415; 80053; 83735; 83880; 84484; 85025; 93005; 99283; 99284

== ENCOUNTER → 2025-07-07 18:17 | Outpatient (BNV) | payer OTHER, SELFPAY | PROVIDERS: Emergency Provider Emergency Medicine Emergency Medical Services; Visit Provider Internal Medicine Cardiovascular Disease | DX: R55 Syncope and collapse (principal) | CPT/HCPCS: 93010 ==

== ENCOUNTER 2025-07-15 14:14 | Outpatient (AMB) | payer OTHER, SELFPAY ==
[2025-07-15 14:23] VITALS: BP 162/82; PULSE 104; O2SAT 96; BMI 22.0
--- NOTE | 2025-07-15 14:23 | MHC.OFFVIS ---
Vital Signs 07/15/25 14:23 Height 5 ft 5 in Weight 132 lb BMI 22.0 BP 162/82 H Pulse 104 H Pulse Oximetry (%) 96 Intake Visit Reasons: MAT Intake Allergies [facility] Allergy (Verified 07/15/25 14:24) Unknown metformin (METFORMIN) Adverse Reaction (Mild, Verified 07/15/25 14:24) DIARRHEA, nausea and vomiting Medication List - Last Reconciled 07/15/25 by OSIEL Metcalf albuterol sulfate 2.5 mg inhalation Q6H PRN amlodipine 10 mg PO DAILY aspirin 81 mg PO DAILY atorvastatin 40 mg PO DAILY escitalopram oxalate 20 mg PO DAILY ferrous sulfate (iron) 325 mg PO DAILY gabapentin 300 mg PO TID hydralazine 100 mg PO TID 30 days insulin lispro 100 units subcut DIRECTED insulin pump cart,auto,BT-cntr (Omnipod 5 G6 Intro Kit (Gen 5) subcutaneous cartridge with controller) losartan 25 mg PO DAILY magnesium oxide 400 mg PO DAILY metoprolol succinate ER 100 mg PO DAILY dbkwqloh-job-fxuzt-vit K-lycop 400-20-300 mcg (One-A-Day Men's Multivitamin) 1 tab PO DAILY naltrexone 50 mg PO DAILY 30 days nicotine 21 mg transdermal DAILY PRN omeprazole 40 mg PO DAILY@0630 sucralfate 1 g PO QID torsemide 60 mg PO DAILY torsemide 40 mg PO BEDTIME trazodone 100 mg PO BEDTIME HPI Comments Details: A 50-year-old male presents for a MAT intake for AUD. Reports was admitted to [facility] on July 01 for seizure activity secondary to alcohol withdrawals. Reports drinking a pint of vodka per day with orange juice, no alcohol consumption for past 2 days. Prescribed naltrexone during inpatient stay and reports this helps decrease alcohol cravings. Denies use of opiates, and other substances. Acknowledges smoking 1/2 pack of cigarettes and intermittent use of cannabis. Lives alone and has a visiting nurse several times per week. Extended family living near by, brother, sister, and adult children. [facility] Medical History Tobacco use CKD (chronic kidney disease) stage 1, GFR 90 ml/min or greater YARELIS (obstructive sleep apnea) Acute on chronic diastolic (congestive) heart failure KELVIN (acute kidney injury) Chronic heart failure with preserved ejection fraction (HFpEF) Depression Acute on chronic anemia Anxiety HLD (hyperlipidemia) Diabetes HTN (hypertension) Asthma PAD (peripheral artery disease) Surgical History History of esophagogastroduodenoscopy S/P angiogram of extremity Family History Father Alzheimer disease CAD (coronary artery disease) Social History Household Members: None Household Members Other:: 4 Housing: Apartment Do you presently have visiting nurse or other home services: Yes ([facility]) Unable to assess alcohol history related to: Unknown Alcohol intake: current Alcohol intake frequency: holidays/special occasions only Alcohol type: hard liquor Comment: pt is independent in room Patient Tobacco Use Status: Current everyday Tobacco user Tobacco use type: Cigarette Cigarette Packs Per Day: 1 Cigarettes Per Day: 10 Years Smoked: 33 years e-Cigarette/Vaping Use: Currently Using Second Hand Smoke Exposure: No Substance Use Type: Marijuana Advance Directives Date on File: 06/21/21 service: No Current occupational status: disabled Review of Systems Const All systems reviewed & are unremarkable except as noted in HPI and below Physical Exam Vital Signs: Last Vital Signs Pulse 104 H 07/15/25 14:23 BP 162/82 H 07/15/25 14:23 Pulse Ox 96 07/15/25 14:23 BMI result Body Mass Index 22.0 Const General: cooperative Extrem Right lower extremity: edema Left lower extremity: edema Results AMB 14 Panel Urine Drug Screen Urine Marijuana (THC) Positive Last Edit by Nissa Herbert CMA on 07/15/25 14:46 Urine Cocaine Negative Last Edit by Nissa Herbert CMA on 07/15/25 14:46 Urine Morphine Negative Last Edit by Nissa Herbert CMA on 07/15/25 14:46 Urine Methamphetamine Negative Last Edit by Nissa Herbert CMA on 07/15/25 14:46 Urine Amphetamine Negative Last Edit by Nissa Herbert CMA on 07/15/25 14:46 Urine Benzodiazepine Negative Last Edit by Nissa Herbert CMA on 07/15/25 14:46 Urine Barbiturates Positive Last Edit by Nissa Herbert, LULA on 07/15/25 14:46 Urine Methadone Negative Last Edit by Nissa Herbert, LULA on 07/15/25 14:46 Urine Buprenorphine Negative Last Edit by Nissa Herbert, LULA on 07/15/25 14:46 Urine Tricyclic Antidepressant Negative Last Edit by Nissa Herbert, LULA on 07/15/25 14:46 Urine MDMA Negative Last Edit by Nissa Herbert, LULA on 07/15/25 14:46 Urine Oxycodone Positive Last Edit by Nissa Herbert, LULA on 07/15/25 14:46 Urine Phencyclidine Negative Last Edit by Nissa Herbert, LULA on 07/15/25 14:46 Urine Propoxyphene Negative Last Edit by Nissa Herbert, LULA on 07/15/25 14:46 Results Reviewed Results Reviewed: Laboratory Last Values POC Urine Buprenorphine Negative 07/15/25 14:44 POC Urine Morphine Negative 07/15/25 14:44 POC Urine Oxycodone Positive 07/15/25 14:44 POC Urine Methadone Negative 07/15/25 14:44 POC Urine Propoxyphene Negative 07/15/25 14:44 POC Urine Barbiturates Positive 07/15/25 14:44 POC U Tricyclic Antidpr Negative 07/15/25 14:44 POC Urine PCP Negative 07/15/25 14:44 POC Ur Amphetamines Negative 07/15/25 14:44 POC Ur Methamphetamine Negative 07/15/25 14:44 POC Urine MDMA Negative 07/15/25 14:44 POC Ur Benzodiazepine Negative 07/15/25 14:44 POC Urine Cocaine Negative 07/15/25 14:44 POC Ur Marijuana (THC) Positive 07/15/25 14:44 Assessment & Plan Assessment & Plan (1) Alcohol use disorder, severe, dependence: Code(s): F10.20 - Alcohol dependence, uncomplicated Category: Medical Plan The plan of care is to continue with naltrexone 50 mg daily. Education provided regarding naltrexone risk for withdrawals if concurrently use with opiates and risk reduction activities to reduce quantity of alcohol consumption. Encouraged to consider a detox program when ready. Additional information provided regarding acamprosate as an alternative medication for alcohol use disorder. The patient declines interest in mental health services and AA meetings. Acknowledges interest for a peer recovery referral, to be completed by television news video editor. Follow-up in 2 weeks or sooner if needed. Orders: Orders AMB 14 Panel Urine Drug Screen Today Z51.81 - Encounter for therapeutic drug level monitoring Medications: New naltrexone One tablet by mouth daily. 50 mg PO DAILY 30 tabs 0RF 30 days Patient Instructions: - Continue with nalrexone as prescribed. - Continue with One a Day Men's multivitamin-includes folic acid and thiamine. - Engage in risk reduction activities to reduce quantity of alcohol consumption. - Inpatient detox program when ready. - Follow-up in 2 weeks or sooner if needed. - Call with questions, concerns, or to report side effects/new onset of symptoms to [facility] - The patient verbalized understanding and agreed with plan of care. Coding Level of Care Code New Pt Level 3 (07869) Diagnoses Alcohol use disorder, severe, dependence F10.20
--- OUTSIDE RECORDS SUMMARY | 2025-07-15 18:01 | XMS_ITS | Encounter Summary ---
Author Organization [facility] Address [address] [place] [address] Care Team Providers Care Loan Underwriter Name Role Phone Zari Henry MD Primary Care Provider Encounter Details Date Type Department Care Team (Late st Contact Info) Description 04/10/2025 Billing Patient Not Present Adult Medicine [address] [phone] Zari Henry MD 444 [place], [place] Social History Tobacco Use Types Packs/Day [...] Care Team (Late st Contact Info) Description 07/17/2025 1:00 PM EDT Office Visit Adult Medicine [address] [phone] Zari Henry MD 444 [place], [place] 08/25/2025 2:30 PM EDT Office Visit Adult [facility] 444 [place], [place] [phone] Nadege Begum PA 444 [place], [place] 09/03/2025 2:00 PM EST Consult Orthopedic Surgery [facility] 250 175 [facility] 250 [place] [phone] Rivas Norman DPM [address] [address] 09/08/2025 2:15 PM EST Office Visit Pulmonolgy [facility] 175 [facility] 200 [place] [address] Nisa Machado MD 175 [facility] 200 [place] [address] 09/29/2025 3:30 PM EST Consult Vascular Surgery [facility] 300 [facility] 210 [place] [address] Enedina Westbrook PA [address] [place] [phone] documented as of this encounter Visit Diagnoses Not on filedocumented in this encounter Care Teams Loan Underwriter Relationship Specialty Start Date End Date Zari Henry MD [address] [place] [address] PCP - General Internal Medicine 08/17/21 documented as of this encounter
--- OUTSIDE RECORDS SUMMARY | 2025-07-15 18:01 | XMS_ITS | Encounter Summary ---
Author Organization [facility] Address [address] [place] [address] Care Team Providers Care Manager Quality Improvement Name Role Phone Zari Henry MD Primary Care Provider [phone] Reason for Visit * Reason Onset Date Comments faxed order 07/14/2025 [facility] Encounter Details Date Type Department Care Team (Late st Contact Info) Description 07/14/2025 Telephone Adult Medicine [facility] 444 [place], [place] [phone] Zari Henry MD 444 [place], [place] Social History Tobacco Use Types Packs/Day [...] as of this encounter Progress Notes * Enid Camara [place] - 07/15/2025 3:53 PM EDT Signed scanned and e-faxed * Nga Nunez - 07/14/2025 10:48 AM EDT [facility] order received please sign and fax to [phone] documented in this encounter Plan of Treatment Upcoming Encounters Date Type Department Care Team (Late st Contact Info) Description 07/17/2025 1:00 PM EDT Office Visit [address] [phone] Zari Henry MD 4 [place], [place] 08/25/2025 2:30 PM EDT Office Visit Adult [address] [phone] Nadege Begum PA 444 [place], [place] 09/03/2025 2:00 PM EST Consult Orthopedic Surgery - [place] 250 175 [facility] 250 [place] [phone] Rivas Norman DPM 175 [facility] 250 [place] [address] 09/08/2025 2:15 PM EST Office Visit Pulmonolgy [facility] 175 [facility] 200 [place] [phone] Nisa Machado MD 175 [facility] 200 [place] [address] 09/29/2025 3:30 PM EST Consult Vascular Surgery - [place] [address] [facility] 210 [place] [phone] Enedina Westbrook PA [address] [place] [phone] documented as of this encounter Visit Diagnoses Not on filedocumented in this encounter Care Teams Manager Quality Improvement Relationship Specialty Start Date End Date Zari Henry MD 4 [place] [address] PCP - General Internal Medicine 08/17/21 documented as of this encounter
--- OUTSIDE RECORDS SUMMARY | 2025-07-15 18:01 | XMS_ITS | Clinical Summary ---
Author Organization [facility] Address [address] [place] [address] Phone Care Team Providers Care Human Resources Designate Name Role Phone Zari Henry MD Primary Care Provider [phone] Allergies Active Allergy Reactions Criticality Noted Date [...] ions:Type 2 diabetes mellitus with diabetic nephropathy ([facility] V24, [facility] V28) INJECT 100 UNITS DIRECTED SEE [...] mellitus), type 2 with peripheral vascular complications ([facility] V24, [facility] V28) INJECT 1 EACH UNDER THE SKIN [...] mellitus), type 2 with peripheral vascular complications ([facility] V24, [facility] V28) 12/05/2024 MAGDA (iron deficiency anemia) 04/06/2023 Requires supplemental oxygen 04/06/2023 CHF (congestive heart failure) ([facility] V24, [facility] V28) 01/06/2023 Obstructive sleep apnea syndrome 05/09/2022 Adrenal mass ([facility] V24) 03/24/2022 Claudication of both lower extremities ([facility] V24) 12/27/2021 Sleep related hypoxia 08/17/2021 Overview (07/12/2024): On oxygen at nighttime Asthma-COPD overlap syndrome (CMS/HCC V24, CMS/ CC V28) 08/17/2021 Overview (12/11/2024): Microscopic hematuria 12/25/2020 Overview (11/29/2024): Normal renal ultrasound, referred to urology for further work-up Condyloma acuminata 11/18/2020 Overview (11/29/2024): Condyloma acuminata 11/19 penis PAD (peripheral artery disease) (CMS/[facility] V24) Overview (11/29/2024): With LLE angioplasty 01/2020 Polycythemia 06/04/2018 Anxiety 08/01/2017 Microalbuminuria 04/14/2017 Depression 01/31/2017 HTN (hypertension), benign 01/31/2017 Hyperlipidemia 01/31/2017 Resolved Problems Problem Noted Date Diagnosed Date Resolved Date Type 2 diabetes mellitus (CM S/HCC V24, CMS/HCC V28) 01/31/2017 12/05/2024 Encounters Date Type Department Care Team Description 07/15/2025 Telephone Pulmonolgy [address] [place] [address] Nisa Machado MD 07/15/2025 Telephone Adult Medicine [address] [phone] Toya Barger [place] 07/14/2025 Telephone Adult Medicine [address] [phone] Zari Henry MD 2025 Telephone Adult Medicine [address] [phone] Toya Barger [place] 07/07/2025 Telephone Adult Medicine [address] [phone] Zari Henry MD 06/25/[address] 200 [place] [address] Nisa Machado MD 06/23/2025 Billing Patient Not Present [address] [phone] Zari Henry MD 06/20/2025 1:00 PM EDT Office Visit Adult [address] [phone] Zari Henry MD Tachycardia (Primary Dx); COPD exacerbation ([facility] V24, [facility] V28); KELVIN (acute kidney injury) ([facility] V24); Dehydration; Diarrhea, unspecified type; HTN (hypertension), benign; Acute on chronic right-sided congestive heart failure ([facility] V24, [facility] V28); DM (diabetes mellitus), type 2 with peripheral vascular complications ([facility] V24, [facility] V28); PVD (peripheral vascular disease) ([facility] V24); Claudication of both lower extremities ([facility] V24) 06/17/2025 Telephone Adult Medicine [address] [phone] Zari Henry MD 06/16/2025 Telephone Adult Medicine [address] [phone] Zari Henry MD 06/12/2025 Telephone Adult Medicine [address] [phone] Zari Henry MD 05/30/2025 Telephone Adult Medicine [address] [phone] Zari Henry MD 05/30/2025 Telephone Adult Medicine [address] [phone] Zari Henry MD 05/30/2025 Telephone Adult Medicine [address] [phone] Zari Henry MD 05/22/2025 Telephone Adult Medicine [address] [phone] John Pulido LPN 04/28/[address] [phone] Lea Alex PA 04/23/2025 3:30 PM EDT Office Visit Adult Medicine [address] [phone] Zari Henry MD DM (diabetes mellitus), type 2 with peripheral vascular complications ([facility] V24, [facility] V28) (Primary Dx); Other hyperlipidemia; Acute on chronic right-sided congestive heart failure ([facility] V24, [facility] V28); HTN (hypertension), benign; Pain in both feet; Skin lesion 04/22/2025 3:30 PM EDT Office Visit Pulmonolgy [address] 200 [place] [address] Nisa Machado MD Asthma-COPD overlap syndrome ([facility] V24, [facility] V28) (Primary Dx); Obstructive sleep apnea syndrome; Acute on chronic right-sided congestive heart failure ([facility] V24, [facility] V28) from Last 3 Months Immunizations Name Administration [...] (diabetes mellitus), type 2 with renal complications ([facility] V24, [facility] V28) 01/31/2017 Microalbuminuria 04/14/2017 Polycythemia 06/04/2018 Condyloma acuminata 11/18/2020 Condyloma ac uminata 11/19 penis YARELIS (obstructive sleep apnea) 05/09/2022 CHF (congestive heart failur e) ([facility] V24, [facility] V28) 01/06/2023 DM (diabetes mellitus), type 2 with peripheral vascular complications ([facility] V24, [facility] V28) 12/05/2024 Family History Medical History Relation [...] Description 07/17/2025 1:00 PM EDT Office Visit [address] [phone] Zair Henry MD 4 [place], [place] 08/25/2025 2:30 PM EDT Office Visit [address] [phone] Nadege Begum PA 4 [place], [place] 09/03/2025 2:00 PM EST Consult Orthopedic Surgery - [place] 250 175 [facility] 250 [place] [phone] Rivas Norman DPM 175 [facility] 250 [place] [address] 09/08/2025 2:15 PM EST Office Visit Pulmonolgy - [place] 175 [facility] 200 [place] [phone] Nisa Machado MD 175 [facility] 200 [place] [address] 09/29/2025 3:30 PM EST Consult Vascular Surgery - [place] [address] [facility] 210 [place] [phone] Enedina Westbrook PA [address] [place] [phone] Health Maintenance Due Date Last Done Comments [...] Acute on chronic right-sided congestive heart failure ([facility] V24, CMS/[facility] V28) HEMOGLOBIN A1C Routine 02/06/2025 2:04 PM EDT DM (diabetes mellitus), type 2 with peripheral vascular complications (CMS/[facility] V24, [facility] V28) from Last 3 Months or Most Recently Relevant to Health Maintenance Results * (ABNORMAL) ECG 12 lead (06/20/2025 1:42 PM EDT) us Zari Henry MD ECG ORDERABLES Final Result * (ABNORMAL) Hemoglobin A1c (02/06/2025 2:04 PM EDT) Hemoglobin A1C 8.1(H) <6.5 % LAB CHEMISTRY METHOD 02/07/2025 11:06 AM EDT [facility] Mean Bld Glu Estim. 186 mg/dL LAB CHEMISTRY METHOD 02/07/2025 11:06 AM EDT [facility] Blood Venous blood specimen / Unknown Venipuncture / Unknown 02/06/2025 2:04 PM EDT 02/06/2025 2:04 PM EDT us Zari Henry MD LAB BLOOD ORDERABLES Final Resul t [facility] [address] [place] [address], [place] [phone] * (ABNORMAL) Basic metabolic panel (02/06/2025 2:04 PM EDT) Sodium 136 133 - 145 mmol/L LAB CHEMISTRY METHOD 02/06/2025 5:07 PM [facility] Potassium 4.2 3.5 - 5.5 mmol/L LAB CHEMISTRY METHOD 02/06/2025 5:07 PM [facility] Chloride 99 96 - 110 mmol/L LAB CHEMISTRY METHOD 02/06/2025 5:07 PM [facility] CO2 28 21 - 32 mmol/L LAB CHEMISTRY METHOD 02/06/2025 5:07 PM [facility] Anion Gap 9 3 - 11 LAB CHEMISTRY METHOD 02/06/2025 5:07 PM [facility] Glucose 317(H) 70 - 100 mg/dL LAB CHEMISTRY METHOD 02/06/2025 5:07 PM [facility] BUN 25 5 - 25 mg/dL LAB CHEMISTRY METHOD 02/06/2025 5:07 PM [facility] Creatinine 1.91(H) 0.70 - 1.30 mg/dL LAB CHEMISTRY METHOD 02/06/2025 5:07 PM [facility] eGFR 42(L) >=60 mL/min/1. 73m2 LAB CHEMISTRY METHOD 02/06/2025 5:07 PM [facility] Comment:Calculation based on the Chronic Kidney Disease Epidemiology Collaboration (CKD-EPI) equation refit without adjustment for race. BUN/Creatinine Ratio 13.1 LAB CHEMISTRY METHOD 02/06/2025 5:07 PM [facility] Calcium 9.5 8.5 - 10.5 mg/dL LAB CHEMISTRY METHOD 02/06/2025 5:07 PM [facility] Blood Venous blood specimen / Unknown Venipuncture / Unknown 02/06/2025 2:04 PM EDT 02/06/2025 2:04 PM EDT us Zari Henry MD LAB BLOOD ORDERABLES Final Resul t [facility] [address] [place] [address], from Last 3 Months or Most Recently Relevant to Health Maintenance Insurance [id number] [place] [address] [facility] Care Teams Human Resources Designate Relationship Specialty Start Date End Date Zari Henry MD 444 [place] [address] PCP - General Internal Medicine 08/17/21
--- OUTSIDE RECORDS SUMMARY | 2025-07-15 18:01 | XMS_ITS | Encounter Summary ---
Author Organization [facility] Address [address] [place] [address] Care Team Providers Care Cellophane Worker Name Role Phone Zari Henry MD Primary Care Provider [phone] Reason for Visit * Reason Onset Date Comments Hospital Follow-up 06/17/2025 Encounter Details Date Type Department Care Team (Late st Contact Info) Description 06/17/2025 Telephone Adult Medicine [facility] 444 [place], [place] [phone] Zari Henry MD 444 [place], [place] Social History Tobacco Use Types Packs/Day [...] Description 07/17/2025 1:00 PM EDT Office Visit [address] [phone] Zari Henry MD [address] [place] [address] 08/25/2025 2:30 PM EDT Office Visit [address] [phone] Nadege Begum PA 4 [place], [place] 09/03/2025 2:00 PM EST Consult Orthopedic Surgery [facility] 250 175 [facility] 250 [place] [phone] Rivas Norman, DPGracie 175 [facility] 250 [place] [address] 09/08/2025 2:15 PM EST Office Visit Pulmonolgy [facility] 175 [facility] 200 [place] [phone] Nisa Machado MD 175 [facility] 200 [place] [address] 09/29/2025 3:30 PM EST Consult Vascular Surgery [facility] [address] [facility] 210 [place] [phone] Enedina Westbrook PA [address] [place] [phone] documented as of this encounter Visit Diagnoses Not on filedocumented in this encounter Care Teams Cellophane Worker Relationship Specialty Start Date End Date Zari Henry MD 444 [place] [address] PCP - General Internal Medicine 08/17/21 documented as of this encounter
--- OUTSIDE RECORDS SUMMARY | 2025-07-15 18:01 | XMS_ITS | Encounter Summary ---
Author Organization [facility] Address [address] [place] [address] Care Team Providers Care Instructor Pilot Name Role Phone Zari Henry MD Primary Care Provider Encounter Details Date Type Department Care Team (Late st Contact Info) Description 01/09/2025 Billing Patient Not Present Adult Medicine [address] [phone] Zari Henry MD 444 [place], [place] Social History Tobacco Use Types Packs/Day [...] PM EDT Office Visit Adult Medicine [address] [phone] Zari Henry MD 444 [place], [place] 08/25/2025 2:30 PM EDT Office Visit Adult [facility] 444 [place], [place] [phone] Nadege Begum PA 444 [place], [place] 09/03/2025 2:00 PM EST Consult Orthopedic Surgery [facility] 250 175 [facility] 250 [place] [phone] Rivas Norman DPM [address] [address] 09/08/2025 2:15 PM EST Office Visit Pulmonolgy [facility] 175 [facility] 200 [place] [address] Nisa Machado MD 175 [facility] 200 [place] [address] 09/29/2025 3:30 PM EST Consult Vascular Surgery [facility] 300 [facility] 210 [place] [address] Enedina Westbrook PA [address] [place] [phone] documented as of this encounter Visit Diagnoses Not on filedocumented in this encounter Care Teams Instructor Pilot Relationship Specialty Start Date End Date Zari Henry MD [address] [place] [address] PCP - General Internal Medicine 08/17/21 documented as of this encounter
--- OUTSIDE RECORDS SUMMARY | 2025-07-15 18:01 | XMS_ITS | Encounter Summary ---
Author Organization [facility] Address [address] [place] [address] Care Team Providers Care Pershing Missile Crewmember Name Role Phone Zari Henry MD Primary Care Provider [phone] Reason for Visit * Reason Onset Date Comments Hospital Follow-up 07/15/2025 Reschedule 07/15/2025 Encounter Details Date Type Department Care Team ([facility] Contact Info) Description 07/15/2025 Telephone Adult Medicine [address] [phone] Toya Barger MA Social History Tobacco Use Types Packs/Day [...] Progress Notes * Tonya Patel RN - 07/15/2025 10:32 AM EDT His appointment was rescheduled for 07/17/25 at 1:[address] Henry and he is in agreement with this plan. * Toya Barger MA - 07/15/2025 9:19 AM EDT Patient needs to reschedule no show Hospital follow up from 07/14/25 documented in this encounter Plan of Treatment Upcoming Encounters Date Type Department Care Team (Late st Contact Info) Description 07/17/2025 1:00 PM EDT Office Visit Adult [address] [phone] Zari Henry MD 4 [place], [place] 08/25/2025 2:30 PM EDT Office Visit [address] [phone] Nadege Begum PA 444 [place], [place] 09/03/2025 2:00 PM EST Consult Orthopedic Surgery - [place] 250 175 [facility] [address] 250 [place] [phone] Rivas Norman DPM 175 [facility] 250 [place] [address] 09/08/2025 2:15 PM EST Office Visit Pulmonolgy - [place] 175 [facility] [address] 200 [place] [phone] Nisa Machado MD 175 [facility] 200 [place] [address] 09/29/2025 3:30 PM EST Consult Vascular Surgery - [place] [address] [facility] 210 [place] [phone] Enedina Westbrook PA [address] [place] [phone] documented as of this encounter Visit Diagnoses Not on filedocumented in this encounter Care Teams Pershing Missile Crewmember Relationship Specialty Start Date End Date Zari Henry MD 4 [place] [address] PCP - General Internal Medicine 08/17/21 documented as of this encounter
--- OUTSIDE RECORDS SUMMARY | 2025-07-15 18:01 | XMS_ITS | Encounter Summary ---
Author Organization [facility] Address [address] [place] [address] Care Team Providers Care Regenerator Operator Name Role Phone Zari Henry MD Primary Care Provider Encounter Details Date Type Department Care Team (Late st Contact Info) Description 02/14/2025 Billing Patient Not Present Adult Medicine [address] [phone] Zari Henry MD 444 [place], [place] Social History Tobacco Use Types Packs/Day [...] 1:00 PM EDT Office Visit Adult Medicine [address] [phone] Zari Henry MD 444 [place], [place] 08/25/2025 2:30 PM EDT Office Visit Adult [facility] 444 [place], [place] [phone] Nadege Begum PA 444 [place], [place] 09/03/2025 2:00 PM EST Consult Orthopedic Surgery [facility] 250 175 [facility] 250 [place] [phone] Rivas Norman DPM [address] [address] 09/08/2025 2:15 PM EST Office Visit Pulmonolgy [facility] 175 [facility] 200 [place] [address] Nisa Machado MD 175 [facility] 200 [place] [address] 09/29/2025 3:30 PM EST Consult Vascular Surgery [facility] 300 [facility] 210 [place] [address] Enedina Westbrook PA [address] [place] [phone] documented as of this encounter Visit Diagnoses Not on filedocumented in this encounter Care Teams Regenerator Operator Relationship Specialty Start Date End Date Zari Henry MD [address] [place] [address] PCP - General Internal Medicine 08/17/21 documented as of this encounter
--- OUTSIDE RECORDS SUMMARY | 2025-07-15 18:01 | XMS_ITS | Encounter Summary ---
Author Organization [facility] Address [address] [place] [address] Care Team Providers Care Ladies Attendant Name Role Phone Zari Henry MD Primary Care Provider Encounter Details Date Type Department Care Team (Late st Contact Info) Description 01/30/2025 Billing Patient Not Present Adult Medicine [address] [phone] Zari Henry MD 444 [place], [place] Social History Tobacco Use Types Packs/Day [...] 1:00 PM EDT Office Visit Adult Medicine [address] [phone] Zari Henry MD 444 [place], [place] 08/25/2025 2:30 PM EDT Office Visit Adult [facility] 444 [place], [place] [phone] Nadege Begum PA 444 [place], [place] 09/03/2025 2:00 PM EST Consult Orthopedic Surgery [facility] 250 175 [facility] 250 [place] [phone] Rivas Norman DPM [address] [address] 09/08/2025 2:15 PM EST Office Visit Pulmonolgy [facility] 175 [facility] 200 [place] [address] Nisa Machado MD 175 [facility] 200 [place] [address] 09/29/2025 3:30 PM EST Consult Vascular Surgery [facility] 300 [facility] 210 [place] [address] Enedina Westbrook PA [address] [place] [phone] documented as of this encounter Visit Diagnoses Not on filedocumented in this encounter Care Teams Ladies Attendant Relationship Specialty Start Date End Date Zari Henry MD [address] [place] [address] PCP - General Internal Medicine 08/17/21 documented as of this encounter
--- OUTSIDE RECORDS SUMMARY | 2025-07-15 18:01 | XMS_ITS | Clinical Summary ---
Author Organization [facility] Address [address] [facility] 204 [place] [address] Phone Care Team Providers Care Psychiatric Secretary Name Role Phone Zari Henry MD Primary Care Provider [phone] Allergies Active Allergy Reactions Criticality Noted Date [...] 12/11/19 26 Active ergocalciferol (Drisdol) 1.25 MG (68205 UT) capsule Take 1 capsule (50,000 Units [...] Office Visit [facility] [address] [phone] Jong Hall MD Stage 3 chronic kidney [...] Visit [facility] [address] [address] Jong Hall MD [address] [phone] Health Maintenance Due Date Last Done Comments [...] Creatinine, Ur 378.0 Not Estab. mg/dL [facility] Albumin, Urine 1,229.7 Not Estab. ug/mL [facility] Comment: Results confirmed on dilution. Albumin/Creatin ine Ratio 325(H) 0 - 29 mg/g creat [facility] Comment: Normal: 0 - 29 Moderately increased: 30 - 300 Severely increased: >300 05/20/2025 11:2 1 AM EDT 05/20/2025 us Jong Hall MD LAB URINE ORDERABLES Final Resul t Performing Organization Address [facility] Co de Phone Number [facility] [address] [place] [address] * (ABNORMAL) Vitamin D 25 Hydroxy (05/20/2025 11:21 AM EDT) Vitamin D, 25-OH, Total 10.8(L) 30.0 - 100.0 ng/mL [facility] Comment: Vitamin D deficiency has been defined by the [place] of Medicine and an Endocrine Society practice guideline as a level of serum 25-OH vitamin D less than 20 ng/mL (1,2). The Endocrine Society went on to further define vitamin D insufficiency as a level between 21 and 29 ng/mL (2). 1. IOM ([place] of Medicine). 2010. Dietary reference intakes for calcium and D. Law [place]: The National Academies Press. 2. Rochelle MF, Vickie JAMES, Ramses DOYLE, et al. Evaluation, treatment, and prevention of vitamin D deficiency: an Endocrine Society clinical practice guideline. JCEM. 2010; 96(7):1911-30. 05/20/2025 11:2 1 AM EDT 05/20/2025 us Jong Hall MD LAB BLOOD ORDERABLES Final Resul t Performing Organization Address [facility] Co de Phone Number [facility] [address] [place] [address] * PTH, Intact (05/20/2025 11:21 AM EDT) PTH 43 15 - 65 pg/mL [facility] 05/20/2025 11:2 1 AM EDT 05/20/2025 us Jong Hall MD LAB BLOOD ORDERABLES Final Resul t Performing Organization Address [facility] Co de Phone Number Mayi Zhaopin [facility] [address] [place] [address] * (ABNORMAL) Renal Function Panel (05/20/2025 11:21 AM EDT) Glucose 150(H) 70 - 99 mg/dL [facility] BUN 18 6 - 24 mg/dL [facility] Creatinine 1.71(H) 0.76 - 1.27 mg/dL [facility] eGFR CKD-EPI CR 2020 48(L) >59 mL/min/1.7 3 [facility] BUN/Creatinine Ratio 11 9 - 20 [facility] Sodium 139 134 - 144 mmol/L [facility] Potassium 4.2 3.5 - 5.2 mmol/L [facility] Chloride 104 96 - 106 mmol/L [facility] Bicarbonate (CO2) 18(L) 20 - 29 mmol/L [facility] Calcium 8.9 8.7 - 10.2 mg/dL [facility] Albumin 3.9(L) 4.1 - 5.1 g/dL [facility] Phosphorus 2.4(L) 2.8 - 4.1 mg/dL [facility] 05/20/2025 11:2 1 AM EDT 05/20/2025 Jong Hall MD LAB BLOOD ORDERABLES Final Resul t [employer] [facility] [address] [place] [address] from Last [address] [place] [id number] [facility] [address] [place] [id number] Care Teams Psychiatric Secretary Relationship Specialty Start Date End Date Zari Henry MD 444 [place] [address] PCP - General Internal Medicine 12/09/24
--- OUTSIDE RECORDS SUMMARY | 2025-07-15 18:01 | XMS_ITS | Encounter Summary ---
Author Organization [facility] Address [address] [place] [address] Care Team Providers Care Cardiac Nurse Practitioner Name Role Phone Zari Henry MD Primary Care Provider [phone] Reason for Visit * Reason Onset Date Comments durable medical equipment 07/15/2025 Encounter Details Date Type Department Care Team (Late st Contact Info) Description 07/15/2025 Telephone [facility] 175 [facility] [address] [place] [phone] Nisa Machado MD 175 [facility] 200 [place] [address] Social History Tobacco Use Types Packs/Day Years [...] as of this encounter Progress Notes * Camille Ram - 07/15/2025 2:55 PM EDT Fax received from RAS Stokeseds to be signed and faxed back. documented in this encounter Plan of Treatment Upcoming Encounters Date Type Department Care Team (Late st Contact Info) Description 07/17/2025 1:00 PM EDT Office Visit [address] [phone] Zari Henry MD [address] [place] [address] 08/25/2025 2:30 PM EDT Office Visit [address] [phone] Nadege Begum PA 4 [place], [place] 09/03/2025 2:00 PM EST Consult Orthopedic Surgery - [place] 250 175 [facility] 250 [place] [address] Rivas Norman DPM 175 [facility] 250 [place] [address] 09/08/2025 2:15 PM EST Office Visit Pulmonolgy - [place] 175 [facility] 200 [place] [address] Nisa Machado MD 175 [facility] 200 [place] [address] 09/29/2025 3:30 PM EST Consult Vascular Surgery - [place] [address] [facility] 210 [place] [phone] Enedina Westbrook PA [address] [place] [phone] documented as of this encounter Visit Diagnoses Not on filedocumented in this encounter Care Teams Cardiac Nurse Practitioner Relationship Specialty Start Date End Date Zari Henry MD 4 [place] [address] PCP - General Internal Medicine 08/17/21 documented as of this encounter
== END 2025-07-15 15:21 | disposition home or self-care (01) ==
LOC: HO.HCC 14:14
PROVIDERS: Visit Provider Clinical Nurse Specialist Psychiatric/Mental Health
DX: F10.20 Alcohol dependence, uncomplicated (principal); Z51.81 Encounter for therapeutic drug level monitoring
CPT/HCPCS: 99203

== ENCOUNTER → 2025-07-15 14:14 | Outpatient (BNVA) | payer OTHER, SELFPAY | PROVIDERS: Visit Provider Clinical Nurse Specialist Psychiatric/Mental Health | DX: F10.20 Alcohol dependence, uncomplicated (principal); Z51.81 Encounter for therapeutic drug level monitoring; Z79.899 Other long term (current) drug therapy | CPT/HCPCS: 80307; 99202 ==

== ENCOUNTER 2025-07-18 13:51 | Inpatient (IN) | payer OTHER, SELFPAY ==
[2025-07-18] VITALS (7 sets, daily range): BP systolic 135–160; BP diastolic 75–90; PULSE 94–105; RESP 11–21; TEMP 36.4–37.1; O2SAT 95–99; BMI 50.6
--- NOTE | ~2025-07-18 | US_ITS ---
EXAMINATION: US TRIPLEX LOWER EXTREMITY, BILATERAL CLINICAL INFORMATION: Bilateral lower extremity pain and swelling. COMPARISON: None available. TECHNIQUE: Color-flow triplex imaging with spectral analysis and compression Doppler were performed on the bilateral lower extremities. FINDINGS: Respiratory variation, normal compression and augmented flow are noted throughout the bilateral lower extremities. The visualized common femoral vein, superficial femoral vein, profunda femoral vein, popliteal vein and midcalf peroneal and posterior tibial venous segments show no evidence of deep venous thrombosis bilaterally. There is no Salinas's cyst. US/US venous duplex LE BI IMPRESSION: No evidence of deep venous thrombosis involving the bilateral lower extremities. Electronically signed by: Bony Ta MD 07/18/2025 04:35 PM EDT
--- NOTE | ~2025-07-18 | XR_ITS ---
EXAMINATION: XR CHEST 1 VIEW HISTORY: dyspnea COMPARISON: Comparison is made with the prior examination dated 07/05/2025. FINDINGS: A single AP portable view of the chest performed at 2:46 PM is submitted. The lungs are expanded and clear. There is no pleural effusion, pneumothorax, or pulmonary vascular congestion. The heart is normal in size. The bones are intact. XR/XR chest 1V IMPRESSION: No acute cardiopulmonary abnormality. Electronically signed by: Yevgeniy Jhaveri MD 07/18/2025 02:47 PM EDT
--- NOTE | 2025-07-18 14:26 | ECG_ITS ---
Test Reason : SOB Blood Pressure : */* mmHG Vent. Rate : 103 BPM Atrial Rate : 103 BPM P-R Int : 144 ms QRS Dur : 76 ms QT Int : 344 ms P-R-T Axes : 54 47 62 degrees QTcB Int : 450 ms Sinus tachycardia Otherwise normal ECG When compared with ECG of 07-Jul-2025 18:31, No significant change was found Referred By: Kalpana Maya Electronically Signed By: JESSICA LY
--- NOTE | 2025-07-18 14:35 | ED.EXTPRO ---
HPI - Extremity Problem General Chief complaint: Dyspnea Stated complaint: LEG SWELLING,DYSPNEA PER EMS Time Seen by Provider: 07/18/25 13:58 Source: patient, EMS and old records reviewed Mode of arrival: EMS Limitations: no limitations History of Present Illness ED Provider: DAYLIN BANGURA Narrative: 50 yo male with PMH of esophagitis, CHF EEF 40-45%, alcohol use disorder, PAD, CKD, COPD on 2L NC, HTN, HLD here with recent admission DC on 07/06 for KELVIN on CKD as well as ETOH withdrawal seizure. He comes in with c/o increased leg edema states he sits in a chair but can lay flat in bed, he notes he feels his O2 use is up, he has gained 10lbs in the last few days. He has no cough, rash, fevers. No chest pain. He is a little bit upset with questions being asked. MD Complaint: extremity swelling Onset (ago): day(s) (few) Pain Consistency: constant Location: left, right and lower extremity Quality: dull Radiation: none Relieving factors: rest Exacerbating factors: palpation Associated symptoms: shortness of breath and other Related Data Home Medications ?Medication ?Instructions ?Recorded ?Confirmed trazodone 50 mg tablet 100 mg PO BEDTIME 08/01/22 07/15/25 aspirin 81 mg tablet,delayed 81 mg PO DAILY 10/06/22 07/15/25 release atorvastatin 40 mg tablet 40 mg PO DAILY 10/06/22 07/15/25 metoprolol succinate 100 mg 100 mg PO DAILY 10/06/22 07/15/25 tablet,extended release 24 hr amlodipine 5 mg tablet 10 mg PO DAILY 06/02/24 07/15/25 insulin pump cartridge,automated 06/11/24 07/15/25 dose,BT with controller subcutaneous (Omnipod 5 G6 Intro Kit (Gen 5) subcutaneous cartridge with controller) omeprazole 40 mg capsule,delayed 40 mg PO DAILY@0630 07/15/24 07/15/25 release insulin lispro 100 unit/mL 100 unit subcut DIRECTED 11/19/24 07/15/25 subcutaneous solution sucralfate 1 gram tablet 1 g PO QID 01/14/25 07/15/25 torsemide 20 mg tablet 40 mg PO BEDTIME 05/28/25 07/15/25 torsemide 20 mg tablet 60 mg PO DAILY 05/28/25 07/15/25 albuterol sulfate 2.5 mg/3 mL 2.5 mg inhalation Q6H PRN wheezing 06/13/25 07/15/25 (0.083 %) solution for nebulization losartan 25 mg tablet 25 mg PO DAILY 06/13/25 07/15/25 magnesium oxide 400 mg (241.3 mg 400 mg PO DAILY 06/13/25 07/15/25 magnesium) tablet nicotine 21 mg/24 hr daily 21 mg transdermal DAILY PRN 06/13/25 07/15/25 transdermal patch Smoking Cessation escitalopram oxalate 20 mg tablet 20 mg PO DAILY 07/01/25 07/15/25 gabapentin 300 mg capsule 300 mg PO TID 07/01/25 07/15/25 vbjpzgnx-ltligtnf-whczy acid 400 1 tab PO DAILY 07/01/25 07/15/25 mcg-vit K 20 mcg-lycop 300 mcg tablet (One-A-Day Men's Multivitamin) Previous Rx's ?Medication ?Instructions ?Recorded hydralazine 100 mg tablet 100 mg PO TID 30 days #90 tabs 05/09/23 ferrous sulfate 325 mg (65 mg 325 mg PO DAILY #30 tabs 01/15/25 iron) tablet (iron) naltrexone 50 mg tablet 50 mg PO DAILY 30 days #30 tabs 07/06/25 naltrexone 50 mg tablet 50 mg PO DAILY 30 days #30 tabs 07/15/25 Allergies Allergy/AdvReac Type Severity Reaction Status Date / Time dulaglutide (From [facility]) Allergy Unknown Verified 07/18/25 14:22 metformin (METFORMIN) AdvReac Mild DIARRHEA, Verified 07/18/25 14:22 nausea and vomiting Review of Systems Review of Systems: Constitutional : No Fever, No Chills, No Fatigue ENT/Mouth : No sore throat, No Rhinorrhea Eyes: No Eye Pain, No Swelling, No Redness Cardiovascular : No Chest Pain, pos SOB, pos edema Respiratory : No Cough, No Sputum Gastrointestinal : No Nausea, No Vomiting, No Diarrhea, No abdominal Pain Genitourinary : No Dysuria, No Urinary Frequency, No Hematuria, Musculoskeletal : No joint pain, No Myalgias, No Joint Swelling Skin : No Skin Lesions, No rash Neuro : No Weakness, No Numbness, No Dizziness, no Headache All other systems reviewed and are negative [facility] Past Medical History Attestation statement: The following information was validated with the patient. Source: old records reviewed Medical History Tobacco use CKD (chronic kidney disease) stage 1, GFR 90 ml/min or greater YARELIS (obstructive sleep apnea) Acute on chronic diastolic (congestive) heart failure KELVIN (acute kidney injury) Chronic heart failure with preserved ejection fraction (HFpEF) Depression Acute on chronic anemia Anxiety HLD (hyperlipidemia) Diabetes HTN (hypertension) Asthma PAD (peripheral artery disease) Surgical History History of esophagogastroduodenoscopy S/P angiogram of extremity Family History Family History Father Alzheimer disease CAD (coronary artery disease) Social History Social History Household Members: None Household Members Other:: 4 Housing: Apartment Do you presently have visiting nurse or other home services: Yes ([facility]) Unable to assess alcohol history related to: Unknown Alcohol intake: current Alcohol intake frequency: 3 or more drinks per day Alcohol type: hard liquor Comment: pt is independent in room Patient Tobacco Use Status: Current everyday Tobacco user Tobacco use type: Cigarette Cigarette Packs Per Day: 1 Cigarettes Per Day: 10 Years Smoked: 33 years Smoked in Last 30 Days: Yes e-Cigarette/Vaping Use: Currently Using Second Hand Smoke Exposure: No Use of substances other than those prescribed or required for medical reasons: No Substance Use Type: Marijuana Advance Directives: Yes Advance Directives on File: Yes Advance Directives Date on File: 06/21/21 service: No Current occupational status: disabled Physical Exam Vital Signs: Vital Signs: Last Vital Signs Temp 99.2 F 07/19/25 04:37 Pulse 94 07/19/25 04:37 Resp 15 07/19/25 04:37 BP 160/78 H 07/19/25 04:37 Pulse Ox 97 07/19/25 04:37 O2 Del Method Nasal Cannula 07/19/25 04:37 O2 Flow Rate 2 07/19/25 04:37 BMI result Body Mass Index 50.6 Appearance: Alert. Oriented X3. No acute distress. Eyes: Pupils equal, round and reactive to light. ENT: Pharynx normal. Neck: Normal inspection. Neck supple. CVS: Normal heart rate and rhythm. Pulses normal. Respiratory: No respiratory distress. Breath sounds normal. I do not hear rales, he is 100% on RA Abdomen: Soft and nontender. Skin: Skin warm and dry. Normal skin color. Extremities: 2+ leg pitting edema to both lower legs mid leg and top of foot, pulses intact, no redness Neuro: Oriented X 3. No motor deficit. No sensory deficit. Course Course Course Narrative: signed out to Dr. Bullock pending work up Medications Administered Generic Name Dose Route Start Last Admin Trade Name Freq PRN Reason Stop Dose Admin Dextrose/Lactated Ringer's 1,000 mls @ 100 mls/hr 07/19/25 03:30 07/19/25 03:39 D5lr IVCONT 100 mls/hr .Q10H DIONISIO Administration Discontinued Medications Generic Name Dose Route Start Last Admin Trade Name Freq PRN Reason Stop Dose Admin Diazepam 10 mg 07/19/25 03:29 07/19/25 03:36 Diazepam 10 Mg/2 Ml Cartridge IVPUSH 07/19/25 03:30 10 mg STAT STA Administration Magnesium Sulfate 2 gm in 50 mls @ 150 mls/hr 07/18/25 16:43 07/18/25 17:46 Magnesium Sulfate/H2o IV 07/18/25 17:02 Infused ONCE ONE Infusion Thiamine HCl 200 mg/ Sodium 102 mls @ 204 mls/hr 07/19/25 03:29 07/19/25 04:15 Chloride IV 07/19/25 03:58 Infused ONCE ONE Infusion Ondansetron HCl 4 mg 07/19/25 02:22 07/19/25 03:43 Ondansetron Odt 4 Mg Tab.Rapdis TRANSLINGU 07/19/25 02:23 4 mg ONCE ONE Administration Medical Decision Making Medical Decision Making MDM Narrative: 50 yo male with PMH of esophagitis, CHF EEF 40-45%, alcohol use disorder, PAD, CKD, COPD on 2L NC, HTN, HLD here with c/o increasing leg edema and weight gain. He has no hypoxia here and is comfortable laying flat I am going to obtain labs, BNP, EKG, CXR, DVT study, ETOH level and monitor. Could be just dependent edema, chronic leg swelling, CHF. Patient at 00:40 he is awake alert. Alcohol initially was over 300 now clinically sober after 10 hours of monitoring. Patient's magnesium was 1.4. We repleted. Will discharge patient home. In stable condition. Explained to patient need to stop drinking. In stable condition. 5:03 AM 07/19/2025 (Dr. Kelly Couch, D.O.) nurse reports she went to discharge the patient and he is now in florid alcohol withdrawal with a CIWA of 18. Plan for IV Valium. He does have history of alcohol withdrawal seizure. Given LR with dextrose, thiamine IV. Plan for admission to hospitalist with alcohol withdrawal on phenobarb protocol. Patient understands and agrees with plan for admission. He is wishing to detox. Admitted in guarded condition. Differential Diagnosis Differential Diagnoses: The differential diagnosis associated with the presentation includes dependent edema, CHF Admission/Observation Consideration of admission/observation: Escalation of care including admission/observation considered Lab Data MDM Lab Attestation statement: I reviewed the patient's lab results. 07/18/25 17:20 07/19/25 01:01 Labs: Lab Results 07/18/25 07/18/25 07/18/25 Range/Units 16:19 16:19 17:20 WBC 8.0 (4.8-10.8) X10*3/uL RBC 3.61 L (4.60-5.80) X10*6/uL Hgb 10.7 L (14.0-18.0) g/dl Hct 31.0 L (42.0-52.0) % MCV 85.9 (80.0-98.0) fL MCH 29.6 (27.0-33.0) pg MCHC 34.5 (31.0-36.0) g/dl RDW 18.8 H (11.0-16.0) % Plt Count 328 D (160-400) X10*3/uL MPV 9.1 L (9.4-12.4) fL Immature Gran % (Auto) 1.2 H (0.0-0.4) % Neut % (Auto) 73.5 H (45-73) % Lymph % (Auto) 16.9 L (20-40) % Barton % (Auto) 5.9 (2-11) % Eos % (Auto) 2.0 (0-4) % Baso % (Auto) 0.5 (0-2) % Lymph # (Auto) 1.4 (1.2-4.9) X10*3/uL Barton # (Auto) 0.5 (0.1-1.2) X10*3/uL Eos # (Auto) 0.2 (0.0-0.4) X10*3/uL Baso # (Auto) 0.0 (0.0-0.2) X10*3/uL Abs Immat Gran (auto) 0.10 H (0.00-0.03) X10*3/uL Absolute Neuts (auto) 5.9 (2.0-8.3) x10*3/uL Absolute Nucleated RBC 0.000 (0.0-0.012) X10*3/uL Nucleated RBC % (auto) 0.0 (0.0-0.2) /100WBC Sodium 144 (135-145) mmol/L Potassium 3.9 (3.3-5.1) mmol/L Chloride 102 (96-108) mmol/L Carbon Dioxide 28 (22-29) mmol/L Anion Gap 18 (12-20) BUN 14 (9-16) mg/dL Creatinine 1.03 (0.5-1.4) mg/dL Estim Creat Clear Calc 117.9 Estimated GFR > 60 Random Glucose 181 H (60-115) mg/dL Calcium 8.0 L D (8.4-10.2) mg/dL Magnesium 1.4 L* (1.6-2.6) mg/dL Total Bilirubin 0.1 (0.0-1.0) mg/dL Direct Bilirubin < 0.2 (0.0-0.5) mg/dL AST 28 (5-37) U/L ALT 19 (0-40) U/L Alkaline Phosphatase 168 H (39-117) U/L Troponin I High Sens < 2.7 Cancelled (<3.5-35.0) ng/L NT-Pro-B Natriuret Pep 173.7 (<300) pg/mL Total Protein 6.5 (6.5-8.0) g/dL Albumin 3.4 L (3.5-5.0) g/dL Ethyl Alcohol 345 H* mg/dL 07/19/25 Range/Units 01:01 WBC (4.8-10.8) X10*3/uL RBC (4.60-5.80) X10*6/uL Hgb (14.0-18.0) g/dl Hct (42.0-52.0) % MCV (80.0-98.0) fL MCH (27.0-33.0) pg MCHC (31.0-36.0) g/dl RDW (11.0-16.0) % Plt Count (160-400) X10*3/uL MPV (9.4-12.4) fL Immature Gran % (Auto) (0.0-0.4) % Neut % (Auto) (45-73) % Lymph % (Auto) (20-40) % Barton % (Auto) (2-11) % Eos % (Auto) (0-4) % Baso % (Auto) (0-2) % Lymph # (Auto) (1.2-4.9) X10*3/uL Barton # (Auto) (0.1-1.2) X10*3/uL Eos # (Auto) (0.0-0.4) X10*3/uL Baso # (Auto) (0.0-0.2) X10*3/uL Abs Immat Gran (auto) (0.00-0.03) X10*3/uL Absolute Neuts (auto) (2.0-8.3) x10*3/uL Absolute Nucleated RBC (0.0-0.012) X10*3/uL Nucleated RBC % (auto) (0.0-0.2) /100WBC Sodium 146 H (135-145) mmol/L Potassium 3.8 (3.3-5.1) mmol/L Chloride 104 (96-108) mmol/L Carbon Dioxide 25 (22-29) mmol/L Anion Gap 21 H (12-20) BUN 11 (9-16) mg/dL Creatinine 0.91 (0.5-1.4) mg/dL Estim Creat Clear Calc 133.4 Estimated GFR > 60 Random Glucose 141 H (60-115) mg/dL Calcium 7.9 L (8.4-10.2) mg/dL Magnesium 1.8 (1.6-2.6) mg/dL Total Bilirubin (0.0-1.0) mg/dL Direct Bilirubin (0.0-0.5) mg/dL AST (5-37) U/L ALT (0-40) U/L Alkaline Phosphatase (39-117) U/L Troponin I High Sens (<3.5-35.0) ng/L NT-Pro-B Natriuret Pep (<300) pg/mL Total Protein (6.5-8.0) g/dL Albumin (3.5-5.0) g/dL Ethyl Alcohol mg/dL Independent Interpretation I performed an independent interpretation of an: EKG and Plain X-Ray (normal ) Interpretation: Rate: 103 Rhythm: sinus tach [place]: normal Normal P waves. Normal PHYLLIS. Normal QRS complex. ST T wave : normal no JERRY qTC: 450 prior studies: no acue ischemia The study has been interpreted contemporaneously by me. . Radiology Impression Discussion of test interpretation with radiology: I have reviewed the radiologist's reading. Independent Historian Clinical information obtained from an independent historian. History obtained from or confirmed by: EMS External Record Review External record reviewed: Inpatient record and Outpatient record Critical Care Time Critical Care Time Critical Care Time: Yes Total Critical Care Time: 35 Attestation: CRITICAL CARE TIME: 35 minutes of critical care time was spent in direct patient care at the bedside or in the immediate area with this patient. Critical care was necessary to treat or prevent imminent or life-threatening deterioration of the following conditions electrolyte abnormality, dehydration, alcohol withdrawal due to alcoholic ketosis, hypomagnesemia, alcohol abuse and withdrawal. This patient is high risk for decompensation and/or . This time was spent assessing and managing the patient, interpreting labs and imaging, coordinating care with other medical providers, gathering history from either the patient, their representatives, EMS or chart review, and discussing management with admitting team. Discharge Plan Discharge Clinical Impression: Alcohol withdrawal, Leg edema, Alcohol intoxication, Low magnesium level Patient Disposition: Admitted As Inpatient Print Language: Slovenian
--- OUTSIDE RECORDS SUMMARY | 2025-07-18 14:40 | XMS_ITS | Encounter Summary ---
Author Organization [facility] Address [address] [place] [address] Care Team Providers Care Director Plans Name Role Phone Zari Henry MD Primary Care Provider [phone] Encounter Details Date Type Department Care Team (Late st Contact Info) Description 04/10/2025 Billing Patient Not Present Adult Medicine [address] [phone] Zari Henry MD [address] [place], [place] Social History Tobacco Use Types Packs/Day [...] Care Team (Late st Contact Info) Description 08/07/2025 2:30 PM EDT Office Visit Adult Medicine [address] [phone] Zari Henry MD [address] [place], [place] 08/25/2025 2:30 PM EDT Office Visit Adult Medicine [facility] 444 [place], [place] [phone] Nadege Begum PA [address] [place], [place] 09/03/2025 2:00 PM EST Consult Orthopedic Surgery - [place] 250 175 [facility] 250 [place] [phone] Rivas Norman, DPM [address] [address] 09/08/2025 2:15 PM EST Office Visit Pulmonology - [place] 175 [facility] 200 [place] [phone] Nisa Machado MD [address] [address] 09/29/2025 3:30 PM EST Consult Vascular Surgery - [place] 300 [facility] 210 [place] [address] Enedina Westbrook PA [address] [place] [phone] documented as of this encounter Visit Diagnoses Not on filedocumented in this encounter Care Teams Director Plans Relationship Specialty Start Date End Date Zari Henry MD [address] [place] [address] PCP - General Internal Medicine 08/17/21 documented as of this encounter
--- OUTSIDE RECORDS SUMMARY | 2025-07-18 14:40 | XMS_ITS | Encounter Summary ---
Author Organization [facility] Address [address] [place] [address] Care Team Providers Care Bull Bucker Name Role Phone Zari Henry MD Primary Care Provider [phone] Encounter Details Date Type Department Care Team (Late st Contact Info) Description 02/14/2025 Billing Patient Not Present Adult Medicine [address] [phone] Zari Henry MD [address] [place], [place] Social History Tobacco Use Types Packs/Day [...] 2:30 PM EDT Office Visit Adult Medicine [address] [phone] Zari Henry MD [address] [place], [place] 08/25/2025 2:30 PM EDT Office Visit Adult Medicine [facility] 444 [place], [place] [phone] Nadege Begum PA [address] [place], [place] 09/03/2025 2:00 PM EST Consult Orthopedic Surgery - [place] 250 175 [facility] 250 [place] [phone] Rivas Norman, DPM [address] [address] 09/08/2025 2:15 PM EST Office Visit Pulmonology - [place] 175 [facility] 200 [place] [address] Nisa Machado MD [address] [address] 09/29/2025 3:30 PM EST Consult Vascular Surgery - [place] 300 [facility] 210 [place] [address] Enedina Westbrook PA [address] [place] [phone] documented as of this encounter Visit Diagnoses Not on filedocumented in this encounter Care Teams Bull Bucker Relationship Specialty Start Date End Date Zari Henry MD [address] [place] [address] PCP - General Internal Medicine 08/17/21 documented as of this encounter
--- OUTSIDE RECORDS SUMMARY | 2025-07-18 14:40 | XMS_ITS | Encounter Summary ---
Author Organization [facility] Address [address] [place] [address] Care Team Providers Care Press Puller Name Role Phone Zari Henry MD Primary Care Provider [phone] Encounter Details Date Type Department Care Team (Late st Contact Info) Description 01/30/2025 Billing Patient Not Present Adult Medicine [address] [phone] Zari Henry MD [address] [place], [place] Social History Tobacco Use Types Packs/Day [...] 2:30 PM EDT Office Visit Adult Medicine [address] [phone] Zari Henry MD [address] [place], [place] 08/25/2025 2:30 PM EDT Office Visit Adult Medicine [facility] 444 [place], [place] [phone] Nadege Begum PA [address] [place], [place] 09/03/2025 2:00 PM EST Consult Orthopedic Surgery - [place] 250 175 [facility] 250 [place] [phone] Rivas Norman, DPM [address] [address] 09/08/2025 2:15 PM EST Office Visit Pulmonology - [place] 175 [facility] 200 [place] [address] Nisa Machado MD [address] [address] 09/29/2025 3:30 PM EST Consult Vascular Surgery - [place] 300 [facility] 210 [place] [address] Enedina Westbrook PA [address] [place] [phone] documented as of this encounter Visit Diagnoses Not on filedocumented in this encounter Care Teams Press Puller Relationship Specialty Start Date End Date Zari Henry MD [address] [place] [address] PCP - General Internal Medicine 08/17/21 documented as of this encounter
--- OUTSIDE RECORDS SUMMARY | 2025-07-18 14:41 | XMS_ITS | Encounter Summary ---
Author Organization [facility] Address [address] [place] [address] Care Team Providers Care Intravenous Therapy Nurse Name Role Phone Zari Henry MD Primary Care Provider [phone] Reason for Visit * Reason Onset Date Comments Hospital Follow-up 06/17/2025 Encounter Details Date Type Department Care Team (Late st Contact Info) Description 06/17/2025 Telephone Adult Medicine [facility] [address] [place], [place] [phone] Zari Henry MD [address] [place], [place] Social History Tobacco Use Types Packs/Day [...] Description 08/07/2025 2:30 PM EDT Office Visit [address] [phone] Zari Henry MD [address] [place] [address] 08/25/2025 2:30 PM EDT Office Visit [address] [phone] Nadege Begum PA 4 [place], [place] 09/03/2025 2:00 PM EST Consult Orthopedic Surgery - [place] 250 175 [facility] 250 [place] [address] Rivas Norman, DPGracie 175 [facility] 250 [place] [address] 09/08/2025 2:15 PM EST Office Visit Pulmonology - [place] 175 [facility] 200 [place] [address] Nisa Machado MD 175 [facility] 200 [place] [address] 09/29/2025 3:30 PM EST Consult Vascular Surgery - [place] 300 [facility] 210 [place] [phone] Enedina Westbrook PA [address] [place] [phone] documented as of this encounter Visit Diagnoses Not on filedocumented in this encounter Care Teams Intravenous Therapy Nurse Relationship Specialty Start Date End Date Zari Henry MD [address] [place] [address], [place] [address] PCP - General Internal Medicine 08/17/21 documented as of this encounter
--- OUTSIDE RECORDS SUMMARY | 2025-07-18 14:41 | XMS_ITS | Encounter Summary ---
Author Organization [facility] Address [address] [place] [address] Care Team Providers Care Item Processing Clerk Name Role Phone Zari Henry MD Primary Care Provider Encounter Details Date Type Department Care Team (Late st Contact Info) Description 01/09/2025 Billing Patient Not Present Adult Medicine [address] [phone] Zari Henry MD [address] [place], [place] Social History Tobacco Use Types Packs/Day [...] 2:30 PM EDT Office Visit Adult Medicine [address] [phone] Zari Henry MD [address] [place], [place] 08/25/2025 2:30 PM EDT Office Visit Adult Medicine [facility] 444 [place], [place] [phone] Nadege Begum PA [address] [place], [place] 09/03/2025 2:00 PM EST Consult Orthopedic Surgery - [place] 250 175 [facility] 250 [place] [phone] Rivas Norman, DPM [address] [address] 09/08/2025 2:15 PM EST Office Visit Pulmonology - [place] 175 [facility] 200 [place] [address] Nisa Machado MD [address] [address] 09/29/2025 3:30 PM EST Consult Vascular Surgery - [place] 300 [facility] 210 [place] [address] Enedina Westbrook PA [address] [place] [phone] documented as of this encounter Visit Diagnoses Not on filedocumented in this encounter Care Teams Item Processing Clerk Relationship Specialty Start Date End Date Zari Hnery MD [address] [place] [address] PCP - General Internal Medicine 08/17/21 documented as of this encounter
--- OUTSIDE RECORDS SUMMARY | 2025-07-18 14:41 | XMS_ITS | Clinical Summary ---
Author Organization [facility] Address [address] [facility] [address] [place] [address] Phone Care Team Providers Care Funder Name Role Phone Zari Henry MD Primary Care Provider [phone] Allergies Active Allergy Reactions Criticality Noted Date [...] 12/11/19 26 Active ergocalciferol (Drisdol) 1.25 MG (56783 UT) capsule Take 1 capsule (50,000 Units [...] Office Visit [facility] [address] [address] Jong Hall MD Stage 3 chronic kidney [...] Visit [facility] [address] [address] Jong Hall MD [address] [phone] Health Maintenance Due Date Last Done Comments [...] Creatinine, Ur 378.0 Not Estab. mg/dL [facility] Albumin, Urine 1,229.7 Not Estab. ug/mL [facility] Comment: Results confirmed on dilution. Albumin/Creatin ine Ratio 325(H) 0 - 29 mg/g creat [facility] Comment: Normal: 0 - 29 Moderately increased: 30 - 300 Severely increased: >300 05/20/2025 11:2 1 AM EDT 05/20/2025 us Jong Hall MD LAB URINE ORDERABLES Final Resul t Performing Organization Address [facility] Co de Phone Number [facility] [address] [place] [address] * (ABNORMAL) Vitamin D 25 Hydroxy (05/20/2025 11:21 AM EDT) Vitamin D, 25-OH, Total 10.8(L) 30.0 - 100.0 ng/mL [facility] Comment: Vitamin D deficiency has been defined by the [place] of Medicine and an Endocrine Society practice guideline as a level of serum 25-OH vitamin D less than 20 ng/mL (1,2). The Endocrine Society went on to further define vitamin D insufficiency as a level between 21 and 29 ng/mL (2). 1. IOM ([place] of Medicine). 2010. Dietary reference intakes for calcium and D. Law [place]: The National Academies Press. 2. Rochelle MF, Vickie JAMES, Ramses DOYLE, et al. Evaluation, treatment, and prevention of vitamin D deficiency: an Endocrine Society clinical practice guideline. JCEM. 2010; 96(7):1911-30. 05/20/2025 11:2 1 AM EDT 05/20/2025 us Jong Hall MD LAB BLOOD ORDERABLES Final Resul t Performing Organization Address [facility] Co de Phone Number [facility] [address] [place] [address] * PTH, Intact (05/20/2025 11:21 AM EDT) PTH 43 15 - 65 pg/mL [facility] 05/20/2025 11:2 1 AM EDT 05/20/2025 us Jong Hall MD LAB BLOOD ORDERABLES Final Resul t Performing Organization Address [facility] Co de Phone Number [employer] [facility] [address] [place] [address] * (ABNORMAL) Renal Function Panel (05/20/2025 11:21 AM EDT) Glucose 150(H) 70 - 99 mg/dL [facility] BUN 18 6 - 24 mg/dL [facility] Creatinine 1.71(H) 0.76 - 1.27 mg/dL [facility] eGFR CKD-EPI CR 2020 48(L) >59 mL/min/1.7 3 [facility] BUN/Creatinine Ratio 11 9 - 20 [facility] Sodium 139 134 - 144 mmol/L [facility] Potassium 4.2 3.5 - 5.2 mmol/L [facility] Chloride 104 96 - 106 mmol/L [facility] Bicarbonate (CO2) 18(L) 20 - 29 mmol/L [facility] Calcium 8.9 8.7 - 10.2 mg/dL [facility] Albumin 3.9(L) 4.1 - 5.1 g/dL [facility] Phosphorus 2.4(L) 2.8 - 4.1 mg/dL [facility] 05/20/2025 11:2 1 AM EDT 05/20/2025 Jong Hall MD LAB BLOOD ORDERABLES Final Resul t [employer] [address] [place] [address] from Last [address] [place] [address] [facility] Medicaid [address] [place] [id number] Care Teams Funder Relationship Specialty Start Date End Date Zari Henry MD [address] [place] [address] PCP - General Internal Medicine 12/09/24
--- OUTSIDE RECORDS SUMMARY | 2025-07-18 14:41 | XMS_ITS | Clinical Summary ---
Author Organization [facility] Address [address] [place] [address] Phone Care Team Providers Care Panel Monitor Name Role Phone Zari Henry MD Primary Care Provider [phone] Allergies Active Allergy Reactions Criticality Noted Date [...] ions:Type 2 diabetes mellitus with diabetic nephropathy ([facility] V24, [facility] V28) INJECT 100 UNITS DIRECTED SEE ADMIN [...] mellitus), type 2 with peripheral vascular complications ([facility] V24, [facility] V28) INJECT 1 EACH UNDER THE SKIN [...] mellitus), type 2 with peripheral vascular complications ([facility] V24, [facility] V28) 12/05/2024 MAGDA (iron deficiency anemia) 04/06/2023 Requires supplemental oxygen 04/06/2023 CHF (congestive heart failure) ([facility] V24, [facility] V28) 01/06/2023 Obstructive sleep apnea syndrome 05/09/2022 Adrenal mass ([facility] V24) 03/24/2022 Claudication of both lower extremities ([facility] V24) 12/27/2021 Sleep related hypoxia 08/17/2021 Overview (07/12/2024): On oxygen at nighttime Asthma-COPD overlap syndrome (CMS/HCC V24, [facility]/ [facility] V28) 08/17/2021 Overview (12/11/2024): Microscopic hematuria 12/25/2020 Overview (11/29/2024): Normal renal ultrasound, referred to urology for further work-up Condyloma acuminata 11/18/2020 Overview (11/29/2024): Condyloma acuminata 11/19 penis PAD (peripheral artery disease) ([facility] V24) Overview (11/29/2024): With LLE angioplasty 01/2020 Polycythemia 06/04/2018 Anxiety 08/01/2017 Microalbuminuria 04/14/2017 Depression 01/31/2017 HTN (hypertension), benign 01/31/2017 Hyperlipidemia 01/31/2017 Resolved Problems Problem Noted Date Diagnosed Date Resolved Date Type 2 diabetes mellitus (CM S/HCC V24, CMS/HCC V28) 01/31/2017 12/05/2024 Encounters Date Type Department Care Team Description 07/17/2025 Telephone Adult Medicine [address] [phone] Toya Barger [place] 07/15/2025 Telephone Pulmonology [address] [place] [phone] Nisa Machado MD 07/15/2025 Telephone Adult Medicine [address] [phone] Toya Barger [place] 07/14/2025 Telephone Adult Medicine [address] [phone] Zari Henry MD 2025 Telephone Adult Medicine [address] [phone] Toya Barger [place] 07/07/2025 Telephone Adult Medicine [address] [phone] Zari Henry MD 06/25/2025 Telephone Pulmonology [address] [place] [phone] Nisa Machado MD 06/23/2025 Billing Patient Not Present [address] [phone] Zari Henry MD 06/20/2025 1:00 PM EDT Office Visit [address] [phone] Zari Henry MD Tachycardia (Primary Dx); COPD exacerbation ([facility] V24, [facility] V28); KELVIN (acute kidney injury) ([facility] V24); Dehydration; Diarrhea, unspecified type; HTN (hypertension), benign; Acute on chronic right-sided congestive heart failure ([facility] V24, [facility] V28); DM (diabetes mellitus), type 2 with peripheral vascular complications ([facility] V24, [facility] V28); PVD (peripheral vascular disease) ([facility] V24); Claudication of both lower extremities ([facility] V24) 06/17/2025 Telephone Adult Medicine [address] [phone] Zari Henry MD 06/16/2025 Telephone Adult Medicine [address] [phone] Zari Henry MD 06/12/2025 Telephone Adult Medicine [address] [phone] Zari Henry MD 05/30/2025 Telephone Adult Medicine [address] [phone] Zari Henry MD 05/30/2025 Telephone Adult Medicine [address] [phone] Zari Henry MD 05/30/2025 Telephone Adult Medicine [address] [phone] Zari Henry MD 05/22/2025 Telephone Adult Medicine [address] [phone] John Pulido LPN 04/28/2025 Telephone Endocrinology [address] [phone] Lea Alex PA 04/23/2025 3:30 PM EDT Office Visit Adult [address] [phone] Zari Henry MD DM (diabetes mellitus), type 2 with peripheral vascular complications ([facility] V24, [facility] V28) (Primary Dx); Other hyperlipidemia; Acute on chronic right-sided congestive heart failure ([facility] V24, [facility] V28); HTN (hypertension), benign; Pain in both feet; Skin lesion 04/22/2025 3:30 PM EDT Office Visit Pulmonology - [address] [place] [address] Nisa Machado MD Asthma-COPD overlap syndrome ([facility] V24, [facility] V28) (Primary Dx); Obstructive sleep apnea syndrome; Acute on chronic right-sided congestive heart failure ([facility] V24, [facility] V28) from Last 3 Months Immunizations Name [...] (diabetes mellitus), type 2 with renal complications ([facility] V24, [facility] V28) 01/31/2017 Microalbuminuria 04/14/2017 Polycythemia 06/04/2018 Condyloma acuminata 11/18/2020 Condyloma ac uminata 11/19 penis YARELIS (obstructive sleep apnea) 05/09/2022 CHF (congestive heart failur e) ([facility] V24, [facility] V28) 01/06/2023 DM (diabetes mellitus), type 2 with peripheral vascular complications ([facility] V24, [facility] V28) 12/05/2024 Family History Medical History Relation [...] Description 08/07/2025 2:30 PM EDT Office Visit [address] [phone] Zari Henry MD [address] [place], [place] 08/25/2025 2:30 PM EDT Office Visit Adult [address] [phone] Nadege Begum PA [address] [place], [place] 09/03/2025 2:00 PM EST Consult Orthopedic Surgery - [place] [address] [facility] 250 [place] [phone] Rivas Norman DPM 175 [facility] [address] [place] [address] 09/08/2025 2:15 PM EST Office Visit Pulmonology - [place] [address] [facility] 200 [place] [phone] Nisa Machado MD 175 [facility] 200 [place] [address] 09/29/2025 3:30 PM EST Consult Vascular Surgery - [place] [address] [facility] [address] [place] [phone] Enedina Westbrook PA [facility] [place] [phone] Health Maintenance Due Date Last Done Comments [...] (2 - Td or Tdap) 05/17/2029 05/17/2019 RSV Immunization Adult Patients (1 - 1-dose 75+ series) 2049 HIB Vaccines Aged Out No longer eligi [...] Acute on chronic right-sided congestive heart failure ([facility] V24, [facility] V28) HEMOGLOBIN A1C Routine 02/06/2025 2:04 PM EDT DM (diabetes mellitus), type 2 with peripheral vascular complications ([facility] V24, [facility] V28) from Last 3 Months or Most Recently Relevant to Health Maintenance Results * (ABNORMAL) ECG 12 lead (06/20/2025 1:42 PM EDT) Zari Henry MD ECG ORDERABLES Final Result * (ABNORMAL) Hemoglobin A1c (02/06/2025 2:04 PM EDT) Hemoglobin A1C 8.1(H) <6.5 % LAB CHEMISTRY METHOD 02/07/2025 11:06 AM EDT [facility] Mean Bld Glu Estim. 186 mg/dL LAB CHEMISTRY METHOD 02/07/2025 11:06 AM EDT [facility] Blood Venous blood specimen / Unknown Venipuncture / Unknown 02/06/2025 2:04 PM EDT 02/06/2025 2:04 PM EDT Zari Henry MD LAB BLOOD ORDERABLES Final Resul t [facility] [address] [place] [address], * (ABNORMAL) Basic metabolic panel (02/06/2025 2:04 PM EDT) Sodium 136 133 - 145 mmol/L LAB CHEMISTRY METHOD 02/06/2025 5:07 PM [facility] Potassium 4.2 3.5 - 5.5 mmol/L LAB CHEMISTRY METHOD 02/06/2025 5:07 PM [facility] Chloride 99 96 - 110 mmol/L LAB CHEMISTRY METHOD 02/06/2025 5:07 PM [facility] CO2 28 21 - 32 mmol/L LAB CHEMISTRY METHOD 02/06/2025 5:07 PM [facility] Anion Gap 9 3 - 11 LAB CHEMISTRY METHOD 02/06/2025 5:07 PM [facility] Glucose 317(H) 70 - 100 mg/dL LAB CHEMISTRY METHOD 02/06/2025 5:07 PM [facility] BUN 25 5 - 25 mg/dL LAB CHEMISTRY METHOD 02/06/2025 5:07 PM [facility] Creatinine 1.91(H) 0.70 - 1.30 mg/dL LAB CHEMISTRY METHOD 02/06/2025 5:07 PM [facility] eGFR 42(L) >=60 mL/min/1. 73m2 LAB CHEMISTRY METHOD 02/06/2025 5:07 PM [facility] Comment:Calculation based on the Chronic Kidney Disease Epidemiology Collaboration (CKD-EPI) equation refit without adjustment for race. BUN/Creatinine Ratio 13.1 LAB CHEMISTRY METHOD 02/06/2025 5:07 PM [facility] Calcium 9.5 8.5 - 10.5 mg/dL LAB CHEMISTRY METHOD 02/06/2025 5:07 PM [facility] Blood Venous blood specimen / Unknown Venipuncture / Unknown 02/06/2025 2:04 PM EDT 02/06/2025 2:04 PM EDT us Zari Henry MD LAB BLOOD ORDERABLES Final Resul t [facility] ([facility] [address] [place] [address], from Last 3 Months or Most Recently Relevant to Health Maintenance Insurance [address] [place] [address] [facility] Care Teams Panel Monitor Relationship Specialty Start Date End Date Zari Henry MD [address] [place] [address] PCP - General Internal Medicine 08/17/21
--- OUTSIDE RECORDS SUMMARY | 2025-07-18 14:41 | XMS_ITS | Clinical Summary ---
Author Organization [facility] Address [address] [place] [address] Care Team Providers Care Cell Geneticist Name Role Phone Zari Henry MD Primary Care Provider [phone] Allergies Active Allergy Reactions Criticality Noted Date [...] age to complete this topic Care Teams Cell Geneticist Relationship Specialty Start Date End Date Zari Henry MD PCP - General Internal Medicine 01/21/22
--- OUTSIDE RECORDS SUMMARY | 2025-07-18 14:41 | XMS_ITS | Encounter Summary ---
Author Organization [facility] Address [address] [place] [address] Care Team Providers Care Excel Expert Name Role Phone Zari Henry MD Primary Care Provider [phone] Reason for Visit * Reason Onset Date Comments durable medical equipment 07/15/2025 Encounter Details Date Type Department Care Team (Late st Contact Info) Description 07/15/2025 Telephone Pulmonology - [place] [address] [facility] [address] [place] [phone] Nisa Machado MD 175 [facility] 200 [place] [address] Social History Tobacco Use Types Packs/Day Years [...] of this encounter Progress Notes * Ronit Elizabeth MA - 07/16/2025 9:59 AM EDT Order printed placed on kathy's desk * Camille Leahyos - 07/15/2025 2:55 PM EDT Fax received from RAS Stokes to be signed and faxed back. documented in this encounter Plan of Treatment Upcoming Encounters Date Type Department Care Team (Late st Contact Info) Description 08/07/2025 2:30 PM EDT Office Visit Adult [address] [phone] Zari Henry MD [address] [place], [place] 08/25/2025 2:30 PM EDT Office Visit Adult [address] [phone] Nadege Begum PA [address] [place], [place] 09/03/2025 2:00 PM EST Consult Orthopedic Surgery - [place] [address] 175 [facility] 250 [place] [phone] Rivas Norman DPM 175 [facility] 250 [place] [address] 09/08/2025 2:15 PM EST Office Visit Pulmonology - [place] 175 [facility] 200 [place] [phone] Nisa Machado MD 175 [facility] 200 [place] [address] 09/29/2025 3:30 PM EST Consult Vascular Surgery - [place] [address] [facility] [address] [place] [phone] Enedina Westbrook PA [address] [place] [phone] documented as of this encounter Visit Diagnoses Not on filedocumented in this encounter Care Teams Excel Expert Relationship Specialty Start Date End Date Zari Henry MD [address] [place] [address] PCP - General Internal Medicine 08/17/21 documented as of this encounter
--- OUTSIDE RECORDS SUMMARY | 2025-07-18 14:41 | XMS_ITS | Encounter Summary ---
Author Organization [facility] Address [address] [place] [address] Care Team Providers Care Customer Service Operator Name Role Phone Zari Henry MD Primary Care Provider Reason for Visit * Reason Onset Date Comments Hospital Follow-up 07/15/2025 Reschedule 07/15/2025 Encounter Details Date Type Department Care Team ([facility] Contact Info) Description 07/15/2025 Telephone Adult Medicine [address] [phone] Toya Barger [place] Social History Tobacco Use [...] 08/07/2025 2:30 PM EDT Office Visit Adult [address] [phone] Zari Henry MD [address] [place], [place] 08/25/2025 2:30 PM EDT Office Visit [address] [phone] Nadege Begum PA [address] [place], [place] 09/03/2025 2:00 PM EST Consult Orthopedic Surgery - [place] [address] [facility] 250 [place] [phone] Rivas Norman DPM 175 [facility] 250 [place] [address] 09/08/2025 2:15 PM EST Office Visit Pulmonology - [place] 175 [facility] 200 [place] [phone] Nisa Machado MD 175 [facility] 200 [place] [address] 09/29/2025 3:30 PM EST Consult Vascular Surgery - [place] [address] [facility] 210 [place] [phone] Enedina Westbrook PA [address] [place] [phone] documented as of this encounter Visit Diagnoses Not on filedocumented in this encounter Care Teams Customer Service Operator Relationship Specialty Start Date End Date Zari Henry MD [address] [place] [address] PCP - General Internal Medicine 08/17/21 documented as of this encounter
--- OUTSIDE RECORDS SUMMARY | 2025-07-18 14:41 | XMS_ITS | Encounter Summary ---
Author Organization [facility] Address [address] [place] [address] Care Team Providers Care Claim Auditor Name Role Phone Zari Henry MD Primary Care Provider [phone] Reason for Visit * Reason Onset Date Comments faxed order [facility] Encounter Details Date Type Department Care Team (Late st Contact Info) Description 07/14/2025 Telephone Adult Medicine [facility] [address] [place], [place] [phone] Zari Henry MD [address] [place], [place] Social History Tobacco Use Types Packs/Day [...] Nga Nunez - 07/14/2025 10:48 AM EDT [facility] order received please sign and fax to [phone] documented in this encounter Plan of Treatment Upcoming Encounters Date Type Department Care Team (Late st Contact Info) Description 08/07/2025 2:30 PM EDT Office Visit [address] [phone] Zari Henry MD [address] [place], [place] 08/25/2025 2:30 PM EDT Office Visit Adult [address] [phone] Nadege Begum PA [address] [place], [place] 09/03/2025 2:00 PM EST Consult Orthopedic Surgery - [place] 250 175 [facility] 250 [place] [phone] Rivas Norman DPM 175 [facility] 250 [place] [address] 09/08/2025 2:15 PM EST Office Visit Pulmonology - [place] 175 [facility] 200 [place] [phone] Nisa Machado MD 175 [facility] 200 [place] [address] 09/29/2025 3:30 PM EST Consult Vascular Surgery - [place] [address] [facility] 210 [place] [phone] Enedina Westbrook PA 230 [place] [address] documented as of this encounter Visit Diagnoses Not on filedocumented in this encounter Care Teams Claim Auditor Relationship Specialty Start Date End Date Zari Henry MD [address] [place] [address] PCP - General Internal Medicine 08/17/21 documented as of this encounter
--- OUTSIDE RECORDS SUMMARY | 2025-07-18 14:41 | XMS_ITS | Encounter Summary ---
Author Organization [facility] Address [address] [place] [address] Care Team Providers Care Jet Man Name Role Phone Zari Henry MD Primary Care Provider [phone] Reason for Visit * Reason Onset Date Comments Hospital Follow-up 07/17/2025 Reschedule 07/17/2025 Encounter Details Date Type Department Care Team ([facility] Contact Info) Description 07/17/2025 Telephone Adult Medicine [address] [phone] Toya Barger [place] Social History Tobacco Use [...] Progress Notes * Tonya Patel RN - 07/17/2025 10:17 AM EDT An appointment was made for him to be seen in the office on 08/07/25 at 2:[address] Henry and he is in agreement with this plan. He was instructed to call the office if he develops any new or worsening symptoms prior to his appointment. * Toya Barger MA - 07/17/2025 9:46 AM EDT Patient needs to reschedule Hospital f/u for today.Patient states his feet are to swollen to walk. documented in this encounter Plan of Treatment Upcoming Encounters Date Type Department Care Team (Late st Contact Info) Description 08/07/2025 2:30 PM EDT Office Visit Adult [address] [phone] Zari Henry MD [address] [place] [address] 08/25/2025 2:30 PM EDT Office Visit Adult [address] [phone] Nadege Begum PA 4 [place], [place] 09/03/2025 2:00 PM EST Consult Orthopedic Surgery - [place] 250 175 [facility] 250 [place] [phone] Rivas Norman DPM 175 [facility] 250 [place] [address] 09/08/2025 2:15 PM EST Office Visit Pulmonology - [place] 175 [facility] 200 [place] [phone] Nisa Machado MD 175 [facility] 200 [place] [address] 09/29/2025 3:30 PM EST Consult Vascular Surgery - [place] 300 [facility] 210 [place] [phone] Enedina Westbrook PA [address] [place] [phone] documented as of this encounter Visit Diagnoses Not on filedocumented in this encounter Care Teams Jet Man Relationship Specialty Start Date End Date Zari Henry MD [address] [place] [phone] PCP - General Internal Medicine 08/17/21 documented as of this encounter
--- NOTE | 2025-07-18 15:31 | MHC.EDTECH ---
ekg delay do to being staff challenge and bussiness of the ER being increased high.nurse aware
--- NOTE | 2025-07-18 15:31 | PC.NURSE ---
on cardica monitor in maguire bed. states last drink was this am. Recent Hx of withdrawal Sz per patient.
--- NOTE | 2025-07-18 16:43 | PC.NURSE ---
RESTINg quietly. no SOB. Sz precautions have been inplace since arrival to room 1.
[2025-07-18 16:44] LABS: Alanine Aminotransferase 19 U/L (0-40); Albumin Level 3.4 g/dL (3.5-5.0); Alkaline Phosphatase 168 U/L (39-117); Anion Gap 18 (12-20); Aspartate Amino Transferase 28 U/L (5-37); Blood Urea Nitrogen 14 mg/dL (9-16); Calcium 8.0 mg/dL (8.4-10.2); Carbon Dioxide 28 mmol/L (22-29); Chloride 102 mmol/L (96-108); Creatinine Clr Calc Pharmacy 117.9; Estimated Glomerular Filt Rate > 60; Magnesium 1.4 mg/dL (1.6-2.6); Potassium 3.9 mmol/L (3.3-5.1); Sodium 144 mmol/L (135-145); Total Protein 6.5 g/dL (6.5-8.0)
[2025-07-18 16:46] LABS: NT Pro B Type Natriuretic Pept 173.7 pg/mL (<300)
[2025-07-18 16:49] LABS: Troponin-I High Sensitivity < 2.7 ng/L (<3.5-35.0)
[2025-07-18 17:25] LABS: Hematocrit 31.0 % (42.0-52.0); Hemoglobin 10.7 g/dl (14.0-18.0); Imm Gran Abs Auto 0.10 X10*3/uL (0.00-0.03); Imm Gran Pct Auto 1.2 % (0.0-0.4); Lymphocytes Absolute Auto 1.4 X10*3/uL (1.2-4.9); Mean Corpuscular HGB Conc 34.5 g/dl (31.0-36.0); Mean Corpuscular Hemoglobin 29.6 pg (27.0-33.0); Mean Corpuscular Volume 85.9 fL (80.0-98.0); NRBC Abs Auto 0.000 X10*3/uL (0.0-0.012); NRBC Pct Auto 0.0 /100WBC (0.0-0.2); Platelet Count 328 X10*3/uL (160-400); Red Blood Count 3.61 X10*6/uL (4.60-5.80); White Blood Count 8.0 X10*3/uL (4.8-10.8)
[2025-07-18] MEDS: Magnesium Sulfate/H2O 2 GM/50 ML PIGGYBACK IV (17:26)
[2025-07-19] VITALS (18 sets, daily range): BP systolic 136–189; BP diastolic 49–96; PULSE 73–105; RESP 10–21; TEMP 36.7–37.5; O2SAT 88–98; BMI 22.2; BMI 19.9
[2025-07-19 01:22] LABS: Anion Gap 21 (12-20); Blood Urea Nitrogen 11 mg/dL (9-16); Calcium 7.9 mg/dL (8.4-10.2); Carbon Dioxide 25 mmol/L (22-29); Chloride 104 mmol/L (96-108); Creatinine Clr Calc Pharmacy 133.4; Estimated Glomerular Filt Rate > 60; Magnesium 1.8 mg/dL (1.6-2.6); Potassium 3.8 mmol/L (3.3-5.1); Sodium 146 mmol/L (135-145)
[2025-07-19] MEDS: diazePAM 10 MG/2 ML CARTRIDGE IVPUSH (03:36)
[2025-07-19] MEDS: Dextrose 5 % and Lactated Ring 1,000 ML 100 ML IVCONT ×2 (03:39→14:32)
[2025-07-19] MEDS: Thiamine HCL 200 MG in 0.9 % Sodium Chloride 100 ML 204 MG IV (03:45)
--- NOTE | 2025-07-19 05:14 | P.HPHOSP_ITS ---
History of Present Illness Date of Service: 07/19/25 Attending physician on admission: Samantha Chowdhury Chief Complaint: etoh withdrawal Pt is a 50 yo male with PMH of esophagitis, diastolic HF EF 40-45%, alcohol use disorder, depression and anxiety, PAD, CKD, COPD on 2L NC, HTN, HLD, YARELIS, withdrawal seizures (last seizure was related to alcohol use 1 week ago) BIBA to ED 07/18/2025 for complaints of CP and need for prn O2. Patient reported to the emergency department that he had increasing leg edema and was unable to lay flat in bed. Patient stated his O2 use had increased and he had gained 10 lb in the last few days. Cardiac work up was negative for acute issues.Patient monitored closely in the emergency department and was deemed ready for discharge after receiving doses of Valium but upon discharge, patient was actively withdrawing and had a CIWA score of 18. Patient has had no seizure activity since arrival. Patient clearly struggling with his alcohol use. Patient expressing significant depression and anxiety prompting him to use alcohol for relief. Patient denies any suicide ideations at this time. Patient requesting detox. Pt reports that he has been using naltrexone simutaneously with drinking alcohol. Patient states he does not have any mental health services in the community has not spoken with psychiatry here in the hospital in the recent past. Overall Medical workup completed in the ED indicated negative troponins, a normal BNP and a chest x-ray negative for acute findings including pneumonia, pulmonary edema and pleural effusion. Alcohol level elevated at 345. Patient's magnesium was 1.4 and has been repleted in his currently 1.8. Patient's sodium 146 and was started on D5 LR. H&H stable at 10.7 and 31. Anion gap slightly elevated at 21 but CO2 25 and blood sugar 141 mg/dL. VBG pending. Venous Dopplers completed and were negative for bilateral DVT. Discussed patient's diagnosis of heart failure and patient's explanation of his heart failure is that his lungs fill up. Patient did not understand that alcohol use can contribute to worsening heart failure. Patient also states he does not do well with fluid restriction and diet guidelines Patient being admitted for alcohol withdrawal now on phenobarbital with an active CIWA score, low magnesium, HFrEF with exacerbation. Review of Systems 2 Review of Systems: Patient currently denies any chest pain, shortness of breath while lying flat on his back, abdominal pain, nausea or vomiting. Patient reporting some mild tremors denies any seizure activity since arrival. Patient is reporting depression worsening by his alcohol use but denies any suicide ideations, homicidal ideations or hallucinations. [facility] Medical History Tobacco use CKD (chronic kidney disease) stage 1, GFR 90 ml/min or greater YARELIS (obstructive sleep apnea) Acute on chronic diastolic (congestive) heart failure KELVIN (acute kidney injury) Chronic heart failure with preserved ejection fraction (HFpEF) Depression Acute on chronic anemia Anxiety HLD (hyperlipidemia) Diabetes HTN (hypertension) Asthma PAD (peripheral artery disease) Cognitive capacity: Currently alert and orientated x3 Functional capacity: independent ambulation Family History Father Alzheimer disease CAD (coronary artery disease) Surgical History History of esophagogastroduodenoscopy S/P angiogram of extremity Social History Household Members: None Household Members Other:: 4 Housing: Apartment Do you presently have visiting nurse or other home services: Yes ([facility]) Unable to assess alcohol history related to: Unknown Alcohol intake: current Alcohol intake frequency: 3 or more drinks per day Alcohol type: hard liquor Comment: pt is independent in room Patient Tobacco Use Status: Current everyday Tobacco user Tobacco use type: Cigarette Cigarette Packs Per Day: 1 Cigarettes Per Day: 10 Years Smoked: 33 years Smoked in Last 30 Days: Yes e-Cigarette/Vaping Use: Currently Using Second Hand Smoke Exposure: No Use of substances other than those prescribed or required for medical reasons: No Substance Use Type: Marijuana Advance Directives: Yes Advance Directives on File: Yes Advance Directives Date on File: 06/21/21 service: No Current occupational status: disabled Ebola Risk: Travel/Contact With Anyone From Affected Area/s: No Has Patient Experienced Ebola Symptoms: No Meds Allergies Allergy/AdvReac Type Severity Reaction Status Date / Time dulaglutide (From [facility]) Allergy Unknown Verified 07/18/25 14:22 metformin (METFORMIN) AdvReac Mild DIARRHEA, Verified 07/18/25 14:22 nausea and vomiting Active Medications: Current Medications Acetaminophen (Acetaminophen 325 Mg Tablet) 650 mg PO Q6H PRN PRN Reason: Pain, Mild 1-3,fever,headache Albuterol/Ipratropium (Albuterol/Iprat 2.5/0.5mg 3 Ml Ampul.Neb) 3 ml INHALE Q4H PRN PRN Reason: Shortness of Breath/Wheezing Calcium Carbonate (Calcium Carbonate 750 Mg Tab.Chew) 750 mg PO Q4H PRN PRN Reason: Heartburn Enoxaparin Sodium (Enoxaparin Sodium 40 Mg/0.4 Ml Syringe) 40 mg SUBCUT Q24H [facility] Dextrose/Lactated Ringer's (D5lr) 1,000 mls @ 100 mls/hr IVCONT .Q10H [facility] Last Admin: 07/19/25 03:39 Dose: 100 mls/hr Magnesium Hydroxide (Milk Of Magnesia 30 Ml Oral.Susp) 30 ml PO DAILY PRN PRN Reason: Constipation Melatonin (Melatonin 3 Mg Tablet) 6 mg PO BEDTIME PRN PRN Reason: Insomnia Ondansetron HCl (Ondansetron Hcl 4 Mg/2 Ml Vial) 4 mg IVPUSH Q8H PRN PRN Reason: Nausea and Vomiting Pharmacy Consult (Consult Rx Etoh Phenob Im/Po) 1 each MISCELLANE ONCE PRN; Protocol PRN Reason: Consult order Polyethylene Glycol (Polyethylene Glycol 3350 17 Gm Powd.Pack) 17 gm PO DAILY PRN PRN Reason: Constipation Senna (Sennosides 8.6 Mg Tablet) 17.2 mg PO BEDTIME [facility] Sodium Chloride (0.9 % Sodium Chloride Flush 3 Ml Syringe) 3 ml IVFLUSH QSHIFT [facility] Home Medications ?Medication ?Instructions ?Recorded ?Confirmed ?Last Taken ?Type trazodone 50 mg tablet 100 mg PO BEDTIME 08/01/22 0 07/15/25 06/30/25 History aspirin 81 mg tablet,delayed 81 mg PO DAILY 10/06/22 0 07/15/25 06/30/25 History release atorvastatin 40 mg tablet 40 mg PO DAILY 10/06/22/04/2306/30/25 History metoprolol succinate 100 mg 100 mg PO DAILY 10/06/22 0 07/15/25 06/30/25 History tablet,extended release 24 hr amlodipine 5 mg tablet 10 mg PO DAILY 06/02/2406/3006/30/25 History insulin pump cartridge,automated 06/11/24 07/15/25 Un known History dose,BT with controller subcutaneous (Omnipod 5 G6 Intro Kit (Gen 5) subcutaneous cartridge with controller) omeprazole 40 mg capsule,delayed 40 mg PO DAILY@0630 0 07/15/24 07/15/25 06/30/25 History release insulin lispro 100 unit/mL 100 unit subcut DIRECTED 11/19/24 07/15/25 06/13/25 History subcutaneous solution sucralfate 1 gram tablet 1 g PO QID 01/14/25 07/15/25 06/30/25 History torsemide 20 mg tablet 40 mg PO BEDTIME 05/28/2506/30/25 History torsemide 20 mg tablet 60 mg PO DAILY 05/28/2506/3006/30/25 History albuterol sulfate 2.5 mg/3 mL 2.5 mg inhalation Q6H NC N wheezing 06/13/25 07/15/25 Unknown History (0.083 %) solution for nebulization losartan 25 mg tablet 25 mg PO DAILY 06/13/2506/3006/13/25 History magnesium oxide 400 mg (241.3 mg 400 mg PO DAILY 06/1307/15/25 06/30/25 History magnesium) tablet nicotine 21 mg/24 hr daily 21 mg transdermal DAILY PRN 06/13/25 07/15/25 Unknown History transdermal patch Smoking Cessation escitalopram oxalate 20 mg tablet 20 mg PO DAILY 07/0107/15/25 06/30/25 History gabapentin 300 mg capsule 300 mg PO TID 07/01/2507/1506/30/25 History zlzezorc-xoqaasfm-yyyjc acid 400 1 tab PO DAILY 07/15/25 06/30/25 History mcg-vit K 20 mcg-lycop 300 mcg tablet (One-A-Day Men's Multivitamin) Physical Exam 2 Vital Signs and Narrative: Vital Signs: Last Vital Signs Temp 99.2 F 07/19/25 04:37 Pulse 94 07/19/25 04:37 Resp 15 07/19/25 04:37 BP 160/78 H 07/19/25 04:37 Pulse Ox 97 07/19/25 04:37 O2 Del Method Nasal Cannula 07/19/25 04:37 O2 Flow Rate 2 07/19/25 04:37 BMI result Body Mass Index 50.6 Alert and orientated X3, able to give good history, answer questions asked and follow commands. Patient can protect his airway Neuro: CN II-X11 intact, no deficits, visual acuity intact, mild tremor noted in hands and upper arms EYES: PERRLA, EOM intact, sclerae nonicteric ENT: hearing intact, no issues with swallowing, uvula midline, lips moist, nares patent no epistaxis Cardiac: S1 S2 RRR, tachycardic at 106, no murmur, no JVD, moderate edema in Lower ext Pulmonary: lungs diminished bilaterally Abdominal: BS active in all 4 quadrants, no guarding, tenderness, rebounding MSK: strength 4/5 upper and lower extremities : no CVA tenderness no bladder distension Extremities: Moderate edema in lower extremities, PT and DP pulses palpable +2 Psych: mood anxious, judgement and insight fair Skin: No new lesions or rashes Results Labs 07/18/25 17:20 07/19/25 01:01 Labs: Laboratory Results - last 24 hr 07/18/25 07/18/25 07/18/25 16:19 16:19 17:20 MCV 85.9 MCH 29.6 MCHC 34.5 RDW 18.8 H Plt Count 328 D MPV 9.1 L Immature Gran % (Auto) 1.2 H Neut % (Auto) 73.5 H Lymph % (Auto) 16.9 L [place] % (Auto) 5.9 Eos % (Auto) 2.0 Baso % (Auto) 0.5 Lymph # (Auto) 1.4 [place] # (Auto) 0.5 Eos # (Auto) 0.2 Baso # (Auto) 0.0 Abs Immat Gran (auto) 0.10 H Absolute Neuts (auto) 5.9 Absolute Nucleated RBC 0.000 Nucleated RBC % (auto) 0.0 Anion Gap 18 Estim Creat Clear Calc 117.9 Estimated GFR > 60 Random Glucose 181 H Calcium 8.0 L D Magnesium 1.4 L* Total Bilirubin 0.1 Direct Bilirubin < 0.2 AST 28 ALT 19 Alkaline Phosphatase 168 H Troponin I High Sens < 2.7 Cancelled NT-Pro-B Natriuret Pep 173.7 Total Protein 6.5 Albumin 3.4 L Ethyl Alcohol 345 H* 07/19/25 01:01 MCV MCH MCHC RDW Plt Count MPV Immature Gran % (Auto) Neut % (Auto) Lymph % (Auto) [place] % (Auto) Eos % (Auto) Baso % (Auto) Lymph # (Auto) [place] # (Auto) Eos # (Auto) Baso # (Auto) Abs Immat Gran (auto) Absolute Neuts (auto) Absolute Nucleated RBC Nucleated RBC % (auto) Anion Gap 21 H Estim Creat Clear Calc 133.4 Estimated GFR > 60 Random Glucose 141 H Calcium 7.9 L Magnesium 1.8 Total Bilirubin Direct Bilirubin AST ALT Alkaline Phosphatase Troponin I High Sens NT-Pro-B Natriuret Pep Total Protein Albumin Ethyl Alcohol ECG Attestation: I personally reviewed and interpreted this ECG as follows: (Sinus tachycardia with a normal QTC no ischemic changes) Prior ECG tracings: available for review Imaging Radiologist's Impressions: Impressions Chest X-Ray 07/18/25 14:38 IMPRESSION: No acute cardiopulmonary abnormality. Electronically signed by: Yevgeniy Jhaveri MD 07/18/2025 02:47 PM EDT RP Venous Duplex 07/18/25 16:10 IMPRESSION: No evidence of deep venous thrombosis involving the bilateral lower extremities. Electronically signed by: Bony Ta MD 07/18/2025 04:35 PM EDT RP Assessment and Plan (1) Alcohol withdrawal: Qualifiers: Complication of substance-induced condition: with unspecified complication Qualified Code(s): F10.939 - Alcohol use, unspecified with withdrawal, unspecified Status: Acute Plan Pt is a 50 yo male with PMH of esophagitis, diastolic HF EF 40-45%, alcohol use disorder, depression and anxiety, PAD, CKD, COPD on 2L NC, HTN, HLD, YARELIS, withdrawal seizures (last seizure was related to alcohol use 1 week ago) BIBA to ED 07/18/2025 for complaints of CP and need for prn O2. Workup completed in the ED and patient was deemed ready for discharge and later was found to be actively withdrawing from alcohol with a CIWA score of 18. Request for admission for alcohol withdrawal and patient was started on phenobarbital. Alcohol Withdrawal with hx of seizure Phenobarbital protocol started Continue thiamine, folic acid and multivitamin Addictions consultation placed as patient is requesting detox Pt had been drinking and using naltrexone simutaneously Seizure precautions, patient states last seizure was about a week ago related to alcohol use Anion gap elevated, CO2 and renal function within normal limit, BG 140's - currently on D5 LR, VBG pending Continue CIWA monitoring Telemetry and continuous pulse ox Patient does have history of being on naltrexone Hypomagnesemia Magnesium IV provided Level improved to 1.8 Oral magnesium ordered Trend magnesium daily Hypernatremia Patient is started on D5 LR in the ED Sodium 146 Trend BMP HFrEF no exacerbation/ mild pulmonary HTN/ BLE edema Venous Doppler negative for DVT B CXR negative for acute findings including pneumonia, pulmonary edema and pleural effusion NT BNP WNL Troponin negative Weight daily, I/O's QS Low Na diet, Fluid allowance 1500 mls Patient could benefit from continued CHF education in the community HTN Continue amlodipine, hydralazine, losartan metoprolol once medication reconciliation is completed Avoid hypotension Low-sodium diet IDDM Sliding scale insulin ordered Diabetic diet Insulin pump is at home,, monitor for need for Lantus GERD Omeprazole 40 mg daily Sucralfate COPD/Emphysema O2 nasal cannula, baseline 2 L Duo nebs p.r.n. No indication for steroids at this time as there is no exacerbation Antitussives p.r.n. Incentive spirometry Tobacco Dependence Patient counseled on importance of cessation Patient deferred nicotine patch at this time Depression/anxiety Patient requesting psychiatric consultation Continue Lexapro DVT prophylaxis: Lovenox Med rec pending Full Code status Quality Stroke Does the patient have a stroke diagnosis?: No Reason for No Anti-thrombotic by Day Two: N/A - Med Ordered VTE Prior VTE?: No VTE Risk Level:: Medical - moderate - high VTE Device Contraindication: N/A - Device Ordered VTE Drug Contraindication: N/A - Med Ordered
[2025-07-19 07:27] LABS: Glucose, Whole Blood 217 mg/dL (60-115)
--- NOTE | 2025-07-19 07:28 | HO.PM.IMPN ---
Subjective Subjective Date of Service: 07/19/25 Interval History: Pt stated I am ready for going to the rehab Pt otherwise on pHenobarb and seizure precautions Review of Systems Review of Systems: Yes all other systems are reviewed and are negative Physical Exam Exam: Exam: General: AOx3, no acute distress , mildly teary eyed Resp: CTA bilaterally CVS: S1, S2, RRR GI: +BS, NT, no distention Extremities: No edema Psych: Anxious and teary eyed Vital Signs: Vital Signs: Last Vital Signs Temp 99.2 F 07/19/25 06:29 Pulse 98 07/19/25 06:29 Resp 10 L 07/19/25 06:29 BP 171/75 H 07/19/25 06:29 Pulse Ox 97 07/19/25 06:29 O2 Del Method Nasal Cannula 07/19/25 06:29 O2 Flow Rate 2 07/19/25 06:29 BMI result Body Mass Index 50.6 Objective Data Active Medications Acetaminophen (Acetaminophen 325 Mg Tablet) 650 mg PO Q6H PRN PRN Reason: Pain, Mild 1-3,fever,headache Albuterol/Ipratropium (Albuterol/Iprat 2.5/0.5mg 3 Ml Ampul.Neb) 3 ml INHALE Q4H PRN PRN Reason: Shortness of Breath/Wheezing Calcium Carbonate (Calcium Carbonate 750 Mg Tab.Chew) 750 mg PO Q4H PRN PRN Reason: Heartburn Dextrose (Dextrose 50 % 25 Gm/50 Ml Syringe) 25 gm IVPUSH Q15M PRN; Protocol PRN Reason: per Hypoglycemia Standing Ord. Enoxaparin Sodium (Enoxaparin Sodium 40 Mg/0.4 Ml Syringe) 40 mg SUBCUT Q24H [facility] Last Admin: 07/19/25 05:51 Dose: 40 mg Documented By: DEWAYNE Folic Acid (Folic Acid 1 Mg Tablet) 1 mg PO DAILY [facility] Glucose (Glucose Gel 15 Gm Gel..Gram.) 15 gm PO Q15M PRN; Protocol PRN Reason: per Hypoglycemia Standing Ord. Guaifenesin (Guaifenesin 200 Mg/10 Ml 10 Ml Liquid) 10 ml PO Q4H PRN PRN Reason: Cough Dextrose/Lactated Ringer's (D5lr) 1,000 mls @ 100 mls/hr IVCONT .Q10H [facility] Last Admin: 07/19/25 03:39 Dose: 100 mls/hr Documented By: DEWAYNE Insulin Human Lispro (Insulin Lispro 100 Unit/Ml 3 Ml Vial) 0 unit SUBCUT QIDACHS [facility]; Protocol Magnesium Hydroxide (Milk Of Magnesia 30 Ml Oral.Susp) 30 ml PO DAILY PRN PRN Reason: Constipation Magnesium Oxide (Magnesium Oxide 400 Mg Tablet) 400 mg PO BIDPC [facility] Melatonin (Melatonin 3 Mg Tablet) 6 mg PO BEDTIME PRN PRN Reason: Insomnia Multivitamins/Vitamin C (Multivitamin Tablet) 1 tab PO DAILY [facility] Omeprazole (Omeprazole 40 Mg Capsule.Dr) 40 mg PO DAILY@0630 [facility] Ondansetron HCl (Ondansetron Hcl 4 Mg/2 Ml Vial) 4 mg IVPUSH Q8H PRN PRN Reason: Nausea and Vomiting Pharmacy Consult (Consult Rx Etoh Phenob Im/Po) 1 each MISCELLANE ONCE PRN; Protocol PRN Reason: Consult order Polyethylene Glycol (Polyethylene Glycol 3350 17 Gm Powd.Pack) 17 gm PO DAILY PRN PRN Reason: Constipation Senna (Sennosides 8.6 Mg Tablet) 17.2 mg PO BEDTIME [facility] Sodium Chloride (0.9 % Sodium Chloride Flush 3 Ml Syringe) 3 ml IVFLUSH QSHIFT [facility] Thiamine HCl (Thiamine Hcl 100 Mg Tablet) 100 mg PO DAILY [facility] Labs 07/18/25 17:20 07/19/25 01:01 Labs: Laboratory Results - last 24 hr 07/18/25 07/18/25 07/18/25 16:19 16:19 17:20 MCV 85.9 MCH 29.6 MCHC 34.5 RDW 18.8 H Plt Count 328 D MPV 9.1 L Immature Gran % (Auto) 1.2 H Neut % (Auto) 73.5 H Lymph % (Auto) 16.9 L [place] % (Auto) 5.9 Eos % (Auto) 2.0 Baso % (Auto) 0.5 Lymph # (Auto) 1.4 [place] # (Auto) 0.5 Eos # (Auto) 0.2 Baso # (Auto) 0.0 Abs Immat Gran (auto) 0.10 H Absolute Neuts (auto) 5.9 Absolute Nucleated RBC 0.000 Nucleated RBC % (auto) 0.0 Anion Gap 18 Estim Creat Clear Calc 117.9 Estimated GFR > 60 POC Glucose Random Glucose 181 H Calcium 8.0 L D Magnesium 1.4 L* Total Bilirubin 0.1 Direct Bilirubin < 0.2 AST 28 ALT 19 Alkaline Phosphatase 168 H Troponin I High Sens < 2.7 Cancelled NT-Pro-B Natriuret Pep 173.7 Total Protein 6.5 Albumin 3.4 L Ethyl Alcohol 345 H* 07/19/25 07/19/25 01:01 07:16 MCV MCH MCHC RDW Plt Count MPV Immature Gran % (Auto) Neut % (Auto) Lymph % (Auto) [place] % (Auto) Eos % (Auto) Baso % (Auto) Lymph # (Auto) [place] # (Auto) Eos # (Auto) Baso # (Auto) Abs Immat Gran (auto) Absolute Neuts (auto) Absolute Nucleated RBC Nucleated RBC % (auto) Anion Gap 21 H Estim Creat Clear Calc 133.4 Estimated GFR > 60 POC Glucose 217 H Random Glucose 141 H Calcium 7.9 L Magnesium 1.8 Total Bilirubin Direct Bilirubin AST ALT Alkaline Phosphatase Troponin I High Sens NT-Pro-B Natriuret Pep Total Protein Albumin Ethyl Alcohol Assessment and Plan (1) Alcohol withdrawal seizure: Status: Resolved Plan Patient is a 49-year-old with current AUD, marijuana use, current cigarette smoker, poor historian, 49 years old man with past medical history significant for HFpEF, COPD on oxygen, PAD, essential hypertension, CKD stage 3, hyperlipidemia and type 2 diabetes on insulin who was just recently DC after 1 week of phenobarb protocol for AW, presents again with CHARANJIT and hyperglycemia, COPD excaerbation. Alcohol withdrawal seizure AUD Alc level 345 Phenobarb protocol to be continued- day 2/5 KELVIN on CKD stage 3 Likely prerenal-we will hydrate and recheck in the a.m. HFpEF HTN Resume home torsemide 60 and 40 dosage Continue home meds as the patient is hypertensive with a SBP in the 170s YARELIS Nocturnal CPAP home settings Nicotine patches ordered Smoking cessation advised Anxiety Cont SSRI + Atarax DVT prophylaxis with Lovenox Pt is at high risk of decompensation with risk of DT, electrolyte abn, seizures , hypoxic failure and and needs continued hospitalization. This note is constructed using voice recognition software. 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 Quality Stroke Does the patient have a stroke diagnosis?: No Reason for No Anti-thrombotic by Day Two: N/A - Med Ordered VTE Prior VTE?: No VTE Risk Level:: Medical - moderate - high VTE Device Contraindication: N/A - Device Ordered VTE Drug Contraindication: N/A - Med Ordered
[2025-07-19 08:09] LABS: VBG HCO3 31 mmol/L (22-26); VBG O2 % Saturation 99.0 %
[2025-07-19] MEDS: PHENobarbitaL sodium 130 MG/ML VIAL IM Q3Hx2 300 MG IM ×2 (08:12→12:33)
[2025-07-19 08:13] LABS: Venous Blood Gas Refer to POC result
--- NOTE | 2025-07-19 08:22 | PC.NURSE ---
Pt is alert/oriented. Ambulatory to bathroom and steady on feet. BLE edema noted, pt reports 10/10 pain. Pt changed to hospital attire. Medicated as charted. D5LR at 100ml hr infusing. NSR on tele at times tachy with exertion. 97% on room air. HTN, Dr Antony notified. CIWA 4 at this time. Pheno protocol continues. No SOB or diff breathing. Pt declines breakfast. Plan of care ongoing.
--- NOTE | 2025-07-19 09:19 | PHA.MEDREC ---
Addendum entered by Angel Pollock [facility] 07/19/25 09:35: Dr. Antony was made aware that pt does not have insulin pump on him right now. Addendum entered by Angel Pollock [facility] 07/19/25 09:28: [facility] REC REVIEWED BY PRDarci. Patient was recently discharged on 07/06/25 and said nothing has changed since then. Original Note: Pharmacy Consult ? Medication Reconciliation Pharmacy has completed the medication reconciliation. Confirmed medication list with patient. Patient does not have insulin pump on them. Patient is taking Naltrexone. Confirmed Torsemide dosing of 60 mg by mouth daily and 40 mg at bedtime to be correct. Last dose for all medications was yesterday (07/18).
[2025-07-19 12:27] LABS: Glucose, Whole Blood 136 mg/dL (60-115)
--- NOTE | 2025-07-19 16:24 | PM.PSYCN ---
History of Present Illness Date of Service: 07/19/25 Chief Complaint: Ethanol Withdrawal Syndrome Requesting physician: Vickie Antony Discussed with referring provider: No Sources of Information: patient interviewed, chart reviewed and crisis/core team assessment reviewed HPI Narrative: Patient is a 50-year-old male with history of alcohol use disorder, depression, HFpEF, COPD on oxygen, PAD, essential hypertension, CKD stage 3, hyperlipidemia and type 2 diabetes on insulin who was just recently DC'd after 1 week of phenobarb protocol for etoh withdrawal, who presents again with alcohol withdrawal and hyperglycemia, COPD excaerbation. Psychiatry consulted to assess patient's depression. Patient reports that he has been depressed for years. He says he takes Lexapro 20 mg regularly. He used to be seen by his psychiatrist however that person left the practice and his PCP has taken over Lexapro prescription. Patient denies any history at all of SI or AVH. Patient says that he has been drinking heavily since about 17 years old. He has trouble remembering the last time he was sober for an extended period of time but says a few months ago he was sober for about 1.5 months while hospitalized. During this time, while sober he said that his depression was better. Production Posting Clerk discussed how alcohol is a depression which patient understood. Production Posting Clerk discussed medication options for treating his depression and patient had some ambivalence about starting a new medication at this time as he is hoping to head towards a detox facility soon. Past Psychiatric History: Lexapro 20 mg for years No history of psychiatric hospitalization Denies any history of SI Medical Evaluation Reviewed: Yes [facility] Medical History (Updated 07/19/25 @ 17:18 by Derian Nevarez MD) MDD (major depressive disorder), recurrent episode, moderate Tobacco use CKD (chronic kidney disease) stage 1, GFR 90 ml/min or greater YARELIS (obstructive sleep apnea) Acute on chronic diastolic (congestive) heart failure KELVIN (acute kidney injury) Chronic heart failure with preserved ejection fraction (HFpEF) Depression Acute on chronic anemia Anxiety HLD (hyperlipidemia) Diabetes HTN (hypertension) Asthma PAD (peripheral artery disease) Surgical History History of esophagogastroduodenoscopy S/P angiogram of extremity Diagnostics Vital Signs (24Hr): Vital Signs - 24 hr 07/18/25 16:41 07/18/25 19:43 07/18/25 22:22 Temperature 97.9 F 98.8 F Pulse Rate 100 94 94 Respiratory Rate 16 15 11 L Blood Pressure 137/75 147/80 H 135/77 Pulse Oximetry 99 95 99 Oxygen Delivery Method Nasal Cannula Nasal Cannula Nasal Cannula Oxygen Flow Rate 2 2 2 07/19/25 00:42 07/19/25 02:53 07/19/25 04:37 Temperature 99.3 F 99.2 F Pulse Rate 101 H 102 H 94 Respiratory Rate 12 15 Blood Pressure 165/86 H 180/90 H 160/78 H Pulse Oximetry 98 97 Oxygen Delivery Method Nasal Cannula Nasal Cannula Oxygen Flow Rate 2 2 07/19/25 06:29 07/19/25 07:35 07/19/25 08:18 Temperature 99.2 F Pulse Rate 98 105 H 92 Respiratory Rate 10 L 16 16 Blood Pressure 171/75 H 183/87 H 189/96 H Pulse Oximetry 97 97 97 Oxygen Delivery Method Nasal Cannula Room Air Room Air Oxygen Flow Rate 2 07/19/25 08:45 07/19/25 08:45 07/19/25 08:59 Temperature Pulse Rate 90 Respiratory Rate 17 Blood Pressure 165/80 H Pulse Oximetry 88 L 94 88 L Oxygen Delivery Method Room Air Nasal Cannula Room Air Oxygen Flow Rate 2 07/19/25 11:20 07/19/25 12:22 07/19/25 15:44 Temperature 98.1 F Pulse Rate 74 80 Respiratory Rate 14 21 H Blood Pressure 174/79 H 173/84 H 161/76 H Pulse Oximetry 94 Oxygen Delivery Method Nasal Cannula Oxygen Flow Rate 2 07/19/25 15:46 Temperature 99.5 F Pulse Rate 85 Respiratory Rate 13 Blood Pressure 161/87 H Pulse Oximetry 96 Oxygen Delivery Method Nasal Cannula Oxygen Flow Rate 2 BMI result Body Mass Index 22.2 Labs 07/18/25 17:20 07/19/25 01:01 Labs: Laboratory Results - last 48 hr 07/18/25 07/18/25 07/18/25 16:19 16:19 17:20 WBC 8.0 RBC 3.61 L Hgb 10.7 L Hct 31.0 L MCV 85.9 MCH 29.6 MCHC 34.5 RDW 18.8 H Plt Count 328 D MPV 9.1 L Immature Gran % (Auto) 1.2 H Neut % (Auto) 73.5 H Lymph % (Auto) 16.9 L [place] % (Auto) 5.9 Eos % (Auto) 2.0 Baso % (Auto) 0.5 Lymph # (Auto) 1.4 [place] # (Auto) 0.5 Eos # (Auto) 0.2 Baso # (Auto) 0.0 Abs Immat Gran (auto) 0.10 H Absolute Neuts (auto) 5.9 Absolute Nucleated RBC 0.000 Nucleated RBC % (auto) 0.0 VBG pH VBG pCO2 VBG pO2 VBG HCO3 VBG O2 Saturation VBG Base Excess Sodium 144 Potassium 3.9 Chloride 102 Carbon Dioxide 28 Anion Gap 18 BUN 14 Creatinine 1.03 Estim Creat Clear Calc 117.9 Estimated GFR > 60 POC Glucose Random Glucose 181 H Calcium 8.0 L D Magnesium 1.4 L* Total Bilirubin 0.1 Direct Bilirubin < 0.2 AST 28 ALT 19 Alkaline Phosphatase 168 H Troponin I High Sens < 2.7 Cancelled NT-Pro-B Natriuret Pep 173.7 Total Protein 6.5 Albumin 3.4 L Ethyl Alcohol 345 H* 07/19/25 07/19/25 07/19/25 01:01 07:16 08:02 WBC RBC Hgb Hct MCV MCH MCHC RDW Plt Count MPV Immature Gran % (Auto) Neut % (Auto) Lymph % (Auto) [place] % (Auto) Eos % (Auto) Baso % (Auto) Lymph # (Auto) [place] # (Auto) Eos # (Auto) Baso # (Auto) Abs Immat Gran (auto) Absolute Neuts (auto) Absolute Nucleated RBC Nucleated RBC % (auto) VBG pH 7.51 H VBG pCO2 38 VBG pO2 172 VBG HCO3 31 H VBG O2 Saturation 99.0 VBG Base Excess 8.0 Sodium 146 H Potassium 3.8 Chloride 104 Carbon Dioxide 25 Anion Gap 21 H BUN 11 Creatinine 0.91 Estim Creat Clear Calc 133.4 Estimated GFR > 60 POC Glucose 217 H Random Glucose 141 H Calcium 7.9 L Magnesium 1.8 Total Bilirubin Direct Bilirubin AST ALT Alkaline Phosphatase Troponin I High Sens NT-Pro-B Natriuret Pep Total Protein Albumin Ethyl Alcohol 07/19/25 12:21 WBC RBC Hgb Hct MCV MCH MCHC RDW Plt Count MPV Immature Gran % (Auto) Neut % (Auto) Lymph % (Auto) [place] % (Auto) Eos % (Auto) Baso % (Auto) Lymph # (Auto) [place] # (Auto) Eos # (Auto) Baso # (Auto) Abs Immat Gran (auto) Absolute Neuts (auto) Absolute Nucleated RBC Nucleated RBC % (auto) VBG pH VBG pCO2 VBG pO2 VBG HCO3 VBG O2 Saturation VBG Base Excess Sodium Potassium Chloride Carbon Dioxide Anion Gap BUN Creatinine Estim Creat Clear Calc Estimated GFR POC Glucose 136 H Random Glucose Calcium Magnesium Total Bilirubin Direct Bilirubin AST ALT Alkaline Phosphatase Troponin I High Sens NT-Pro-B Natriuret Pep Total Protein Albumin Ethyl Alcohol Imaging Radiology Impressions: ITS Impressions Chest X-Ray 07/18/25 14:38 IMPRESSION: No acute cardiopulmonary abnormality. Electronically signed by: Yevgeniy Jhaveri MD 07/18/2025 02:47 PM EDT RP Venous Duplex 07/18/25 16:10 IMPRESSION: No evidence of deep venous thrombosis involving the bilateral lower extremities. Electronically signed by: Bony Ta MD 07/18/2025 04:35 PM EDT RP Mental Status Exam Mental Status Exam Patient Appearance: Disheveled Patient Orientation: Person, Place, Time and Situation Level of Consciousness: Awake and Appropriate Patient Behavior: Appropriate and Good Eye Contact Mood Description: Depressed Affect Description: Depressed Ability to Follow Directions: Fair Speech Pattern: Clear and Spontaneous Speech Hallucinations: None Delusions: Not Present Thought Process: Intact, Goal Oriented and Linear Thought Content: positive for Intact and positive for Suicidal Ideation (None) Judgement: Fair Medications Medications Current Medications Acetaminophen (Acetaminophen 325 Mg Tablet) 650 mg PO Q6H PRN PRN Reason: Pain, Mild 1-3,fever,headache Albuterol Sulfate (Albuterol Sulfate (0.083%) 2.5 Mg/3 Ml Vial.Neb) 2.5 mg INHALE Q6H PRN PRN Reason: Wheezing Amlodipine Besylate (Amlodipine Besylate 10 Mg Tablet) 10 mg PO DAILY [facility]; Protocol Aspirin (Aspirin Enteric Coated 81 Mg Tablet.Dr) 81 mg PO DAILY [facility] Atorvastatin Calcium (Atorvastatin Calcium 40 Mg Tablet) 40 mg PO DAILY [facility] Calcium Carbonate (Calcium Carbonate 750 Mg Tab.Chew) 750 mg PO Q4H PRN PRN Reason: Heartburn Dextrose (Dextrose 50 % 25 Gm/50 Ml Syringe) 25 gm IVPUSH Q15M PRN; Protocol PRN Reason: per Hypoglycemia Standing Ord. Enoxaparin Sodium (Enoxaparin Sodium 40 Mg/0.4 Ml Syringe) 40 mg SUBCUT Q24H [facility] Last Admin: 07/19/25 05:51 Dose: 40 mg Escitalopram Oxalate (Escitalopram Oxalate 20 Mg Tablet) 20 mg PO DAILY [facility] Ferrous Sulfate (Ferrous Sulfate 324 Mg Tablet.Dr) 324 mg PO DAILY [facility] Folic Acid (Folic Acid 1 Mg Tablet) 1 mg PO DAILY [facility] Last Admin: 07/19/25 08:12 Dose: 1 mg Gabapentin (Gabapentin 300 Mg Capsule) 300 mg PO TID [facility] Last Admin: 07/19/25 15:44 Dose: 300 mg Glucose (Glucose Gel 15 Gm Gel..Gram.) 15 gm PO Q15M PRN; Protocol PRN Reason: per Hypoglycemia Standing Ord. Guaifenesin (Guaifenesin 200 Mg/10 Ml 10 Ml Liquid) 10 ml PO Q4H PRN PRN Reason: Cough Hydralazine HCl (Hydralazine Hcl 50 Mg Tablet) 100 mg PO TID [facility]; Protocol Last Admin: 07/19/25 15:44 Dose: 100 mg Dextrose/Lactated Ringer's (D5lr) 1,000 mls @ 100 mls/hr IVCONT .Q10H [facility] Last Admin: 07/19/25 14:32 Dose: 100 mls/hr Insulin Human Lispro (Insulin Lispro 100 Unit/Ml 3 Ml Vial) 0 unit SUBCUT QIDACHS [facility]; Protocol Last Admin: 07/19/25 12:24 Dose: Not Given Losartan Potassium (Losartan Potassium 25 Mg Tablet) 25 mg PO DAILY [facility]; Protocol Magnesium Hydroxide (Milk Of Magnesia 30 Ml Oral.Susp) 30 ml PO DAILY PRN PRN Reason: Constipation Magnesium Oxide (Magnesium Oxide 400 Mg Tablet) 400 mg PO BIDPC [facility] Last Admin: 07/19/25 08:12 Dose: 400 mg Magnesium Oxide (Magnesium Oxide 400 Mg Tablet) 400 mg PO DAILY [facility] Melatonin (Melatonin 3 Mg Tablet) 6 mg PO BEDTIME PRN PRN Reason: Insomnia Metoprolol Succinate (Metoprolol Succinate Er 100 Mg Tab.Er.24h) 100 mg PO DAILY [facility]; Protocol Multivitamins/Vitamin C (Multivitamin Tablet) 1 tab PO DAILY [facility] Naltrexone HCl (Naltrexone Hcl 50 Mg Tablet) 50 mg PO DAILY [facility] Nicotine (Nicotine 21 Mg Patch.Td24) 21 mg TRANSDERMA DAILY PRN PRN Reason: Smoking Cessation Omeprazole (Omeprazole 40 Mg Capsule.Dr) 40 mg PO DAILY@0630 [facility] Last Admin: 07/19/25 07:33 Dose: 40 mg Omeprazole (Omeprazole 40 Mg Capsule.Dr) 40 mg PO DAILY@0630 [facility] Ondansetron HCl (Ondansetron Hcl 4 Mg/2 Ml Vial) 4 mg IVPUSH Q8H PRN PRN Reason: Nausea and Vomiting Pharmacy Consult (Consult Rx Etoh Phenob Im/Po) 1 each MISCELLANE ONCE PRN; Protocol PRN Reason: Consult order Phenobarbital (Phenobarbital 15 Mg Tablet) 45 mg PO BID [facility]; Protocol Stop: 07/21/25 09:01 Phenobarbital (Phenobarbital 30 Mg Tablet) 30 mg PO BID [facility]; Protocol Stop: 07/23/25 09:01 Phenobarbital (Phenobarbital 30 Mg Tablet) 30 mg PO Q24H [facility]; Protocol Stop: 07/24/25 21:01 Polyethylene Glycol (Polyethylene Glycol 3350 17 Gm Powd.Pack) 17 gm PO DAILY PRN PRN Reason: Constipation Senna (Sennosides 8.6 Mg Tablet) 17.2 mg PO BEDTIME [facility] Sodium Chloride (0.9 % Sodium Chloride Flush 3 Ml Syringe) 3 ml IVFLUSH QSHIFT [facility] Last Admin: 07/19/25 07:33 Dose: Not Given Sucralfate (Sucralfate 1 Gm Tablet) 1 gm PO QID [facility] Last Admin: 07/19/25 13:27 Dose: 1 gm Thiamine HCl (Thiamine Hcl 100 Mg Tablet) 100 mg PO DAILY [facility] Torsemide (Torsemide 20 Mg Tablet) 60 mg PO DAILY [facility]; Protocol Torsemide (Torsemide 20 Mg Tablet) 40 mg PO BEDTIME [facility]; Protocol Trazodone HCl (Trazodone Hcl 100 Mg Tablet) 100 mg PO BEDTIME [facility] Allergies Allergies Allergy/AdvReac Type Severity Reaction Status Date / Time dulaglutide (From [facility]) Allergy Unknown Verified 07/18/25 14:22 metformin (METFORMIN) AdvReac Mild DIARRHEA, Verified 07/18/25 14:22 nausea and vomiting Assessment & Plan Assessment & Plan (1) MDD (major depressive disorder), recurrent episode, moderate: Status: Acute Code(s): F33.1 - Major depressive disorder, recurrent, moderate (2) Alcohol use disorder, severe, dependence: Status: Acute Code(s): F10.20 - Alcohol dependence, uncomplicated (3) Alcohol withdrawal: Qualifiers: Complication of substance-induced condition: with unspecified complication Qualified Code(s): F10.939 - Alcohol use, unspecified with withdrawal, unspecified Status: Acute Code(s): F10.939 - Alcohol use, unspecified with withdrawal, unspecified (4) Acute exacerbation of CHF (congestive heart failure): Status: Acute Code(s): I50.9 - Heart failure, unspecified (5) PAD (peripheral artery disease): Status: Acute Code(s): I73.9 - Peripheral vascular disease, unspecified Plan Patient is a 50-year-old male with history of alcohol use disorder, depression, HFpEF, COPD on oxygen, PAD, essential hypertension, CKD stage 3, hyperlipidemia and type 2 diabetes on insulin who was just recently DC'd after 1 week of phenobarb protocol for etoh withdrawal, who presents again with alcohol withdrawal and hyperglycemia, COPD excaerbation. Psychiatry consulted to assess patient's depression. Patient reports that he has been depressed for years. He says he takes Lexapro 20 mg regularly. He used to be seen by his psychiatrist however that person left the practice and his PCP has taken over Lexapro prescription. Patient denies any history at all of or AV. Patient says that he has been drinking heavily since about 17 years old. He has trouble remembering the last time he was sober for an extended period of time but says a few months ago he was sober for about 1.5 months while hospitalized. During this time, while sober he said that his depression was better; patient said that his soon as he was discharged from that hospitalization, he drank again in his depression returned. Production Posting Clerk discussed how alcohol is a depression which patient understood. Production Posting Clerk discussed medication options for treating his depression and patient had some ambivalence about starting a new medication at this time as he is hoping to head towards a detox facility soon. Impression: Patient remains embroiled in alcoholism. Thus far it has been difficult for him to remain sober, and per his report the only time he has been able to was when he was hospitalized and unable to drink. Patient says that he plans to go to detox and pursue sobriety. Currently he is ambivalent about a medication change to treat depression. Although he takes Lexapro 20 mg daily and has for years, there is little hope of depression getting better until patient is able to become and stay sober for a period of time. Production Posting Clerk agrees that is premature to make any medication adjustments at this time; not only is he currently in the middle dealing with alcohol withdrawal, but he says that when sober, Lexapro seems to be have proven effective in treating his depression. No medication changes at this time. Production Posting Clerk recommends that patient continue to focus on getting through withdrawal and then pursue sobriety; then as an outpatient, he can better determine his needs for medication changes regarding depression. Total time managing care of this patient today ____ minutes. Patient educated on: diagnosis, medication risk/benefits and medical condition Informed Consent: does not understand
[2025-07-19 17:03] LABS: Glucose, Whole Blood 190 mg/dL (60-115)
--- NOTE | 2025-07-19 17:12 | PC.NURSE ---
Pt remains alert/oriented, resting all day. Also declined lunch. Persistent b/l foot pain, reached out to Dr Antony regarding pain medication, awaiting response. NSR on tele. CIWA 0
[2025-07-19 21:14] LABS: Glucose, Whole Blood 168 mg/dL (60-115)
[2025-07-20] VITALS (8 sets, daily range): BP systolic 128–168; BP diastolic 64–80; PULSE 59–79; RESP 16–18; TEMP 36.1–36.9; O2SAT 94–98
--- NOTE | 2025-07-20 06:59 | P.PNIM_ITS ---
Subjective Subjective Date of Service: 07/20/25 Interval History: Stable Physical Exam 2 Exam: Exam: General: AOx3, no acute distress Resp: CTA bilaterally CVS: S1, S2, RRR GI: +BS, NT, no distention Skin: Warm, dry Neuro: Cranial nerves II-XII grossly intact bilaterally. Motor grossly intact bilaterally Extremities: No edema Psych: Appropriate affect Vital Signs: Vital Signs: Last Vital Signs Temp 98.3 F 07/20/25 03:25 Pulse 79 07/20/25 03:25 Resp 16 07/20/25 03:25 BP 128/64 07/20/25 03:25 Pulse Ox 95 07/20/25 03:25 O2 Del Method Room Air 07/20/25 03:25 O2 Flow Rate 2 07/19/25 19:01 BMI result Body Mass Index 19.9 Objective Data Active Medications Acetaminophen (Acetaminophen 325 Mg Tablet) 650 mg PO Q6H PRN PRN Reason: Pain, Mild 1-3,fever,headache Albuterol Sulfate (Albuterol Sulfate (0.083%) 2.5 Mg/3 Ml Vial.[place]) 2.5 mg INHALE Q6H PRN PRN Reason: Wheezing Amlodipine Besylate (Amlodipine Besylate 10 Mg Tablet) 10 mg PO DAILY [facility]; Protocol Aspirin (Aspirin Enteric Coated 81 Mg Tablet.) 81 mg PO DAILY [facility] Atorvastatin Calcium (Atorvastatin Calcium 40 Mg Tablet) 40 mg PO DAILY [facility] Calcium Carbonate (Calcium Carbonate 750 Mg Tab.Chew) 750 mg PO Q4H PRN PRN Reason: Heartburn Dextrose (Dextrose 50 % 25 Gm/50 Ml Syringe) 25 gm IVPUSH Q15M PRN; Protocol PRN Reason: per Hypoglycemia Standing Ord. Enoxaparin Sodium (Enoxaparin Sodium 40 Mg/0.4 Ml Syringe) 40 mg SUBCUT Q24H [facility] Last Admin: 07/20/25 06:46 Dose: 40 mg Documented By: CATRACHITA Escitalopram Oxalate (Escitalopram Oxalate 20 Mg Tablet) 20 mg PO DAILY [facility] Ferrous Sulfate (Ferrous Sulfate 324 Mg Tablet.) 324 mg PO DAILY [facility] Folic Acid (Folic Acid 1 Mg Tablet) 1 mg PO DAILY [facility] Last Admin: 07/19/25 08:12 Dose: 1 mg Documented By: INES Gabapentin (Gabapentin 300 Mg Capsule) 300 mg PO TID [facility] Last Admin: 07/19/25 23:05 Dose: 300 mg Documented By: VLADIMIR Glucose (Glucose Gel 15 Gm Gel..Gram.) 15 gm PO Q15M PRN; Protocol PRN Reason: per Hypoglycemia Standing Ord. Guaifenesin (Guaifenesin 200 Mg/10 Ml 10 Ml Liquid) 10 ml PO Q4H PRN PRN Reason: Cough Hydralazine HCl (Hydralazine Hcl 50 Mg Tablet) 100 mg PO TID [facility]; Protocol Last Admin: 07/19/25 23:05 Dose: 100 mg Documented By: VLADIMIR Dextrose/Lactated Ringer's (D5lr) 1,000 mls @ 100 mls/hr IVCONT .Q10H [facility] Last Infusion: 07/20/25 02:16 Dose: 100 mls/hr Documented By: STEPHIE Insulin Human Lispro (Insulin Lispro 100 Unit/Ml 3 Ml Vial) 0 unit SUBCUT QIDACHS [facility]; Protocol Last Admin: 07/19/25 23:12 Dose: 2 unit Documented By: VLADIMIR Losartan Potassium (Losartan Potassium 25 Mg Tablet) 25 mg PO DAILY [facility]; Protocol Magnesium Hydroxide (Milk Of Magnesia 30 Ml Oral.Susp) 30 ml PO DAILY PRN PRN Reason: Constipation Magnesium Oxide (Magnesium Oxide 400 Mg Tablet) 400 mg PO BIDPC [facility] Last Admin: 07/19/25 17:05 Dose: 400 mg Documented By: INES Magnesium Oxide (Magnesium Oxide 400 Mg Tablet) 400 mg PO DAILY [facility] Melatonin (Melatonin 3 Mg Tablet) 6 mg PO BEDTIME PRN PRN Reason: Insomnia Metoprolol Succinate (Metoprolol Succinate Er 100 Mg Tab.Er.24h) 100 mg PO DAILY [facility]; Protocol Multivitamins/Vitamin C (Multivitamin Tablet) 1 tab PO DAILY [facility] Naltrexone HCl (Naltrexone Hcl 50 Mg Tablet) 50 mg PO DAILY [facility] Nicotine (Nicotine 21 Mg Patch.Td24) 21 mg TRANSDERMA DAILY PRN PRN Reason: Smoking Cessation Omeprazole (Omeprazole 40 Mg Capsule.Dr) 40 mg PO DAILY@0630 [facility] Last Admin: 07/20/25 06:46 Dose: 40 mg Documented By: CATRACHITA Ondansetron HCl (Ondansetron Hcl 4 Mg/2 Ml Vial) 4 mg IVPUSH Q8H PRN PRN Reason: Nausea and Vomiting Pharmacy Consult (Consult Rx Etoh Phenob Im/Po) 1 each MISCELLANE ONCE PRN; Protocol PRN Reason: Consult order Phenobarbital (Phenobarbital 15 Mg Tablet) 45 mg PO BID [facility]; Protocol Stop: 07/21/25 09:01 Last Admin: 07/19/25 23:05 Dose: 45 mg Documented By: VLADIMIR Phenobarbital (Phenobarbital 30 Mg Tablet) 30 mg PO BID [facility]; Protocol Stop: 07/23/25 09:01 Phenobarbital (Phenobarbital 30 Mg Tablet) 30 mg PO Q24H [facility]; Protocol Stop: 07/24/25 21:01 Polyethylene Glycol (Polyethylene Glycol 3350 17 Gm Powd.Pack) 17 gm PO DAILY PRN PRN Reason: Constipation Senna (Sennosides 8.6 Mg Tablet) 17.2 mg PO BEDTIME [facility] Last Admin: 07/19/25 23:05 Dose: 17.2 mg Documented By: VLADIMIR Sodium Chloride (0.9 % Sodium Chloride Flush 3 Ml Syringe) 3 ml IVFLUSH QSHIFT [facility] Last Admin: 07/20/25 00:31 Dose: Not Given Documented By: CATRACHITA Non-Admin Reason: No Access Sucralfate (Sucralfate 1 Gm Tablet) 1 gm PO QID [facility] Last Admin: 07/19/25 23:05 Dose: 1 gm Documented By: VLADIMIR Thiamine HCl (Thiamine Hcl 100 Mg Tablet) 100 mg PO DAILY [facility] Torsemide (Torsemide 20 Mg Tablet) 60 mg PO DAILY [facility]; Protocol Torsemide (Torsemide 20 Mg Tablet) 40 mg PO BEDTIME [facility]; Protocol Last Admin: 07/19/25 23:06 Dose: 40 mg Documented By: VLADIMIR Trazodone HCl (Trazodone Hcl 100 Mg Tablet) 100 mg PO BEDTIME [facility] Last Admin: 07/19/25 23:08 Dose: Not Given Documented By: VLADIMIR Non-Admin Reason: Patient Asleep Labs 07/20/25 07:17 07/20/25 07:17 Labs: Laboratory Results - last 24 hr 07/19/25 07/19/25 07/19/25 07:16 08:02 12:21 VBG pH 7.51 H VBG pCO2 38 VBG pO2 172 VBG HCO3 31 H VBG O2 Saturation 99.0 VBG Base Excess 8.0 POC Glucose 217 H 136 H 07/19/25 07/19/25 16:57 21:01 VBG pH VBG pCO2 VBG pO2 VBG HCO3 VBG O2 Saturation VBG Base Excess POC Glucose 190 H 168 H Assessment and Plan (1) Alcohol withdrawal seizure: Status: Resolved Plan Patient is a 49-year-old with current AUD, marijuana use, current cigarette smoker, poor historian, 49 years old man with past medical history significant for HFpEF, COPD on oxygen, PAD, essential hypertension, CKD stage 3, hyperlipidemia and type 2 diabetes on insulin who was just recently DC after 1 week of phenobarb protocol for AW, presents again with CHARANJIT and hyperglycemia, COPD excaerbation. Alcohol withdrawal seizure AUD Alc level 345 Phenobarb protocol to be continued- day 01/01 KELVIN on CKD stage 3 Likely prerenal- improving, we will hydrate and recheck in the a.m. HFpEF HTN Continue home torsemide 60 and 40 dosage Continue home meds as the patient is hypertensive with a SBP in the 170s YARELIS Nocturnal CPAP home settings Nicotine patches ordered Smoking cessation advised Anxiety Cont SSRI + Atarax DVT prophylaxis with Lovenox Pt is at high risk of decompensation with risk of DT, electrolyte abn, seizures , hypoxic failure and and needs continued hospitalization. This note is constructed using voice recognition software. While every effort has been made to ensure accuracy, foreign trade teacher errors may have been included. Quality Stroke Does the patient have a stroke diagnosis?: No Reason for No Anti-thrombotic by Day Two: N/A - Med Ordered VTE Prior VTE?: No VTE Risk Level:: Medical - moderate - high VTE Device Contraindication: N/A - Device Ordered VTE Drug Contraindication: N/A - Med Ordered
[2025-07-20 07:26] LABS: Glucose, Whole Blood 157 mg/dL (60-115)
[2025-07-20 07:27] LABS: MANUAL DIFF FLAG NO
[2025-07-20 07:40] LABS: Hematocrit 35.2 % (42.0-52.0); Hemoglobin 11.8 g/dl (14.0-18.0); Imm Gran Abs Auto 0.08 X10*3/uL (0.00-0.03); Imm Gran Pct Auto 0.8 % (0.0-0.4); Lymphocytes Absolute Auto 1.7 X10*3/uL (1.2-4.9); Mean Corpuscular HGB Conc 33.5 g/dl (31.0-36.0); Mean Corpuscular Hemoglobin 29.9 pg (27.0-33.0); Mean Corpuscular Volume 89.1 fL (80.0-98.0); NRBC Abs Auto 0.000 X10*3/uL (0.0-0.012); NRBC Pct Auto 0.0 /100WBC (0.0-0.2); Platelet Count 296 X10*3/uL (160-400); Red Blood Count 3.95 X10*6/uL (4.60-5.80); White Blood Count 9.7 X10*3/uL (4.8-10.8)
[2025-07-20 07:59] LABS: Alanine Aminotransferase 16 U/L (0-40); Albumin Level 3.2 g/dL (3.5-5.0); Alkaline Phosphatase 160 U/L (39-117); Anion Gap 13 (12-20); Aspartate Amino Transferase 40 U/L (5-37); Blood Urea Nitrogen 4 mg/dL (9-16); Calcium 8.4 mg/dL (8.4-10.2); Carbon Dioxide 27 mmol/L (22-29); Chloride 102 mmol/L (96-108); Creatinine Clr Calc Pharmacy 71.7; Estimated Glomerular Filt Rate > 60; Potassium 3.4 mmol/L (3.3-5.1); Sodium 139 mmol/L (135-145); Total Protein 6.4 g/dL (6.5-8.0)
[2025-07-20 08:02] LABS: Magnesium 1.4 mg/dL (1.6-2.6)
[2025-07-20] MEDS: Magnesium Sulfate/H2O 2 GM/50 ML PIGGYBACK IV (08:27)
[2025-07-20] MEDS: Aspirin Enteric Coated 81 MG TABLET.DR PO (08:47)
[2025-07-20] MEDS: Metoprolol Succinate ER 100 MG TAB.ER.24H PO (08:49)
[2025-07-20] MEDS: Ferrous Sulfate 324 MG TABLET.DR PO (08:50)
[2025-07-20] MEDS: 0.9 % Sodium Chloride Flush 3 ML SYRINGE IVFLUSH ×3 (08:50→21:49)
--- NOTE | 2025-07-20 10:05 | MHC.CM.PN ---
CM met with Patient at bedside. Patient lives alone, uses a cane, and is active with [facility]. Home/resume said services is patient's goal and CM has initiated and will follow for dc planning. Pcp is Dr. Zari Henry, HCP is Girlfriend/Margine and Patient may need assist with transport to home at dc.
[2025-07-20 11:42] LABS: Glucose, Whole Blood 178 mg/dL (60-115)
[2025-07-20 16:18] LABS: Glucose, Whole Blood 69 mg/dL (60-115)
[2025-07-20 22:33] LABS: Glucose, Whole Blood 203 mg/dL (60-115)
[2025-07-20 23:02] LABS: Glucose, Whole Blood 177 mg/dL (60-115)
[2025-07-21 03:24] VITALS: BP 147/72; PULSE 56; RESP 18; TEMP 36.6; O2SAT 96
--- NOTE | 2025-07-21 07:25 | P.PNIM_ITS ---
Subjective Subjective Date of Service: 07/21/25 Physical Exam 2 Vital Signs: Vital Signs: Last Vital Signs Temp 97.9 F 07/21/25 03:24 Pulse 56 07/21/25 03:24 Resp 18 07/21/25 03:24 BP 147/72 H 07/21/25 03:24 Pulse Ox 96 07/21/25 03:24 O2 Del Method Room Air 07/21/25 03:24 O2 Flow Rate 2 07/19/25 19:01 BMI result Body Mass Index 19.9 Objective Data Active Medications Acetaminophen (Acetaminophen 325 Mg Tablet) 650 mg PO Q6H PRN PRN Reason: Pain, Mild 1-3,fever,headache Albuterol Sulfate (Albuterol Sulfate (0.083%) 2.5 Mg/3 Ml Vial.Neb) 2.5 mg INHALE Q6H PRN PRN Reason: Wheezing Amlodipine Besylate (Amlodipine Besylate 10 Mg Tablet) 10 mg PO DAILY [facility]; Protocol Last Admin: 07/20/25 08:48 Dose: 10 mg Documented By: GLENNY Aspirin (Aspirin Enteric Coated 81 Mg Tablet.) 81 mg PO DAILY [facility] Last Admin: 07/20/25 08:47 Dose: 81 mg Documented By: GLENNY Atorvastatin Calcium (Atorvastatin Calcium 40 Mg Tablet) 40 mg PO DAILY [facility] Last Admin: 07/20/25 08:48 Dose: 40 mg Documented By: GLENNY Calcium Carbonate (Calcium Carbonate 750 Mg Tab.Chew) 750 mg PO Q4H PRN PRN Reason: Heartburn Dextrose (Dextrose 50 % 25 Gm/50 Ml Syringe) 25 gm IVPUSH Q15M PRN; Protocol PRN Reason: per Hypoglycemia Standing Ord. Enoxaparin Sodium (Enoxaparin Sodium 40 Mg/0.4 Ml Syringe) 40 mg SUBCUT Q24H [facility] Last Admin: 07/21/25 06:06 Dose: 40 mg Documented By: MEDARDO Escitalopram Oxalate (Escitalopram Oxalate 20 Mg Tablet) 20 mg PO DAILY [facility] Last Admin: 07/20/25 08:49 Dose: 20 mg Documented By: GLENNY Ferrous Sulfate (Ferrous Sulfate 324 Mg Tablet.) 324 mg PO DAILY [facility] Last Admin: 07/20/25 08:50 Dose: 324 mg Documented By: GLENNY Folic Acid (Folic Acid 1 Mg Tablet) 1 mg PO DAILY [facility] Last Admin: 07/20/25 08:48 Dose: 1 mg Documented By: GLENNY Gabapentin (Gabapentin 300 Mg Capsule) 300 mg PO TID [facility] Last Admin: 07/20/25 21:49 Dose: 300 mg Documented By: MEDARDO Glucose (Glucose Gel 15 Gm Gel..Gram.) 15 gm PO Q15M PRN; Protocol PRN Reason: per Hypoglycemia Standing Ord. Guaifenesin (Guaifenesin 200 Mg/10 Ml 10 Ml Liquid) 10 ml PO Q4H PRN PRN Reason: Cough Hydralazine HCl (Hydralazine Hcl 50 Mg Tablet) 100 mg PO TID [facility]; Protocol Last Admin: 07/20/25 21:49 Dose: 100 mg Documented By: MEDARDO Insulin Human Lispro (Insulin Lispro 100 Unit/Ml 3 Ml Vial) 0 unit SUBCUT QIDACHS [facility]; Protocol Last Admin: 07/20/25 21:49 Dose: 2 unit Documented By: MEDARDO Losartan Potassium (Losartan Potassium 25 Mg Tablet) 25 mg PO DAILY [facility]; Protocol Last Admin: 07/20/25 08:49 Dose: 25 mg Documented By: GLENNY Magnesium Hydroxide (Milk Of Magnesia 30 Ml Oral.Susp) 30 ml PO DAILY PRN PRN Reason: Constipation Magnesium Oxide (Magnesium Oxide 400 Mg Tablet) 400 mg PO BIDPC [facility] Last Admin: 07/20/25 16:35 Dose: 400 mg Documented By: GLENNY Magnesium Oxide (Magnesium Oxide 400 Mg Tablet) 400 mg PO DAILY [facility] Last Admin: 07/20/25 08:48 Dose: 400 mg Documented By: GLENNY Melatonin (Melatonin 3 Mg Tablet) 6 mg PO BEDTIME PRN PRN Reason: Insomnia Metoprolol Succinate (Metoprolol Succinate Er 100 Mg Tab.Er.24h) 100 mg PO DAILY [facility]; Protocol Last Admin: 07/20/25 08:49 Dose: 100 mg Documented By: GLENNY Multivitamins/Vitamin C (Multivitamin Tablet) 1 tab PO DAILY [facility] Last Admin: 07/20/25 08:48 Dose: 1 tab Documented By: GLENNY Naltrexone HCl (Naltrexone Hcl 50 Mg Tablet) 50 mg PO DAILY [facility] Last Admin: 07/20/25 08:47 Dose: 50 mg Documented By: GLENNY Nicotine (Nicotine 21 Mg Patch.Td24) 21 mg TRANSDERMA DAILY PRN PRN Reason: Smoking Cessation Omeprazole (Omeprazole 40 Mg Capsule.Dr) 40 mg PO DAILY@0630 [facility] Last Admin: 07/21/25 06:06 Dose: 40 mg Documented By: MEDARDO Ondansetron HCl (Ondansetron Hcl 4 Mg/2 Ml Vial) 4 mg IVPUSH Q8H PRN PRN Reason: Nausea and Vomiting Pharmacy Consult (Consult Rx Etoh Phenob Im/Po) 1 each MISCELLANE ONCE PRN; Protocol PRN Reason: Consult order Phenobarbital (Phenobarbital 15 Mg Tablet) 45 mg PO BID [facility]; Protocol Stop: 07/21/25 09:01 Last Admin: 07/20/25 21:49 Dose: 45 mg Documented By: MEDARDO Phenobarbital (Phenobarbital 30 Mg Tablet) 30 mg PO BID [facility]; Protocol Stop: 07/23/25 09:01 Phenobarbital (Phenobarbital 30 Mg Tablet) 30 mg PO Q24H [facility]; Protocol Stop: 07/24/25 21:01 Polyethylene Glycol (Polyethylene Glycol 3350 17 Gm Powd.Pack) 17 gm PO DAILY PRN PRN Reason: Constipation Senna (Sennosides 8.6 Mg Tablet) 17.2 mg PO BEDTIME [facility] Last Admin: 07/20/25 21:49 Dose: 17.2 mg Documented By: MEDARDO Sodium Chloride (0.9 % Sodium Chloride Flush 3 Ml Syringe) 3 ml IVFLUSH QSHIFT [facility] Last Admin: 07/20/25 21:49 Dose: 3 ml Documented By: MEDARDO Sucralfate (Sucralfate 1 Gm Tablet) 1 gm PO QID [facility] Last Admin: 07/20/25 21:47 Dose: 1 gm Documented By: MEDARDO Thiamine HCl (Thiamine Hcl 100 Mg Tablet) 100 mg PO DAILY [facility] Last Admin: 07/20/25 08:47 Dose: 100 mg Documented By: GLENNY Torsemide (Torsemide 20 Mg Tablet) 60 mg PO DAILY [facility]; Protocol Last Admin: 07/20/25 08:47 Dose: 60 mg Documented By: GLENNY Torsemide (Torsemide 20 Mg Tablet) 40 mg PO BEDTIME [facility]; Protocol Last Admin: 07/20/25 21:47 Dose: 40 mg Documented By: MEDARDO Trazodone HCl (Trazodone Hcl 100 Mg Tablet) 100 mg PO BEDTIME [facility] Last Admin: 07/20/25 21:47 Dose: 100 mg Documented By: MEDARDO Labs 07/20/25 07:17 07/20/25 07:17 Labs: Laboratory Results - last 24 hr 07/20/25 07/20/25 07/20/25 07:17 07:21 11:35 MCV 89.1 MCH 29.9 MCHC 33.5 RDW 18.2 H Plt Count 296 MPV 9.7 Immature Gran % (Auto) 0.8 H Neut % (Auto) 72.7 Lymph % (Auto) 18.0 L [place] % (Auto) 6.6 Eos % (Auto) 1.6 Baso % (Auto) 0.3 Lymph # (Auto) 1.7 [place] # (Auto) 0.6 Eos # (Auto) 0.2 Baso # (Auto) 0.0 Abs Immat Gran (auto) 0.08 H Absolute Neuts (auto) 7.0 Absolute Nucleated RBC 0.000 Nucleated RBC % (auto) 0.0 Anion Gap 13 Estim Creat Clear Calc 71.7 Estimated GFR > 60 POC Glucose 157 H 178 H Random Glucose 145 H Calcium 8.4 D Magnesium 1.4 L* Total Bilirubin 0.3 AST 40 H ALT 16 Alkaline Phosphatase 160 H Total Protein 6.4 L Albumin 3.2 L 07/20/25 07/20/25 07/20/25 16:13 22:30 22:58 MCV MCH MCHC RDW Plt Count MPV Immature Gran % (Auto) Neut % (Auto) Lymph % (Auto) [place] % (Auto) Eos % (Auto) Baso % (Auto) Lymph # (Auto) [place] # (Auto) Eos # (Auto) Baso # (Auto) Abs Immat Gran (auto) Absolute Neuts (auto) Absolute Nucleated RBC Nucleated RBC % (auto) Anion Gap Estim Creat Clear Calc Estimated GFR POC Glucose 69 203 H 177 H Random Glucose Calcium Magnesium Total Bilirubin AST ALT Alkaline Phosphatase Total Protein Albumin Quality Stroke Does the patient have a stroke diagnosis?: No Reason for No Anti-thrombotic by Day Two: N/A - Med Ordered VTE Prior VTE?: No VTE Risk Level:: Medical - moderate - high VTE Device Contraindication: N/A - Device Ordered VTE Drug Contraindication: N/A - Med Ordered
[2025-07-21 07:54] LABS: Glucose, Whole Blood 160 mg/dL (60-115)
[2025-07-21 08:00] VITALS: BP 155/80; PULSE 63; RESP 18; TEMP 36.3; O2SAT 97
[2025-07-21 08:27] LABS: Hematocrit 33.4 % (42.0-52.0); Hemoglobin 11.0 g/dl (14.0-18.0); Imm Gran Abs Auto 0.12 X10*3/uL (0.00-0.03); Imm Gran Pct Auto 1.3 % (0.0-0.4); Lymphocytes Absolute Auto 1.5 X10*3/uL (1.2-4.9); MANUAL DIFF FLAG SCAN; Mean Corpuscular HGB Conc 32.9 g/dl (31.0-36.0); Mean Corpuscular Hemoglobin 29.3 pg (27.0-33.0); Mean Corpuscular Volume 89.1 fL (80.0-98.0); NRBC Abs Auto 0.000 X10*3/uL (0.0-0.012); NRBC Pct Auto 0.0 /100WBC (0.0-0.2); PLT CLUMP 1; Red Blood Count 3.75 X10*6/uL (4.60-5.80); SCAN SMEAR FLAG 1; White Blood Count 9.6 X10*3/uL (4.8-10.8)
[2025-07-21 08:28] LABS: Alanine Aminotransferase 13 U/L (0-40); Albumin Level 2.9 g/dL (3.5-5.0); Alkaline Phosphatase 138 U/L (39-117); Anion Gap 14 (12-20); Aspartate Amino Transferase 34 U/L (5-37); Blood Urea Nitrogen 5 mg/dL (9-16); Calcium 8.1 mg/dL (8.4-10.2); Carbon Dioxide 29 mmol/L (22-29); Chloride 98 mmol/L (96-108); Creatinine Clr Calc Pharmacy 71.0; Estimated Glomerular Filt Rate > 60; Magnesium 1.2 mg/dL (1.6-2.6); Potassium 3.1 mmol/L (3.3-5.1); Sodium 138 mmol/L (135-145); Total Protein 5.6 g/dL (6.5-8.0)
[2025-07-21] MEDS: Aspirin Enteric Coated 81 MG TABLET.DR PO (08:47)
[2025-07-21] MEDS: Metoprolol Succinate ER 100 MG TAB.ER.24H PO (08:47)
[2025-07-21] MEDS: Ferrous Sulfate 324 MG TABLET.DR PO (08:48)
[2025-07-21] MEDS: Magnesium Sulfate/H2O 2 GM/50 ML PIGGYBACK IV (08:50)
[2025-07-21 08:57] LABS: Platelet Count 269 X10*3/uL (160-400)
[2025-07-21] MEDS: Potassium Chloride ER 20 MEQ TAB.ER.PRT 40 MEQ PO (09:02)
[2025-07-21] MEDS: 0.9 % Sodium Chloride Flush 3 ML SYRINGE IVFLUSH ×3 (09:03→22:14)
[2025-07-21 11:33] LABS: Glucose, Whole Blood 219 mg/dL (60-115)
[2025-07-21 11:49] VITALS: BP 120/71; PULSE 70; RESP 18; TEMP 36.2; O2SAT 98
--- NOTE | 2025-07-21 13:21 | MHC.CM.PN ---
Per rounds, pt. is not ready to DC, he requires continued tx for ETOH WD.
--- NOTE | 2025-07-21 13:58 | HO.PM.IMPN ---
Subjective Subjective Date of Service: 07/21/25 Interval History: Patient has electrolyte abnormalities-being repleted to goal Physical Exam Exam: Exam: General: AOx3, no acute distress Resp: CTA bilaterally CVS: S1, S2, RRR GI: +BS, NT, no distention Skin: Warm, dry Psych: Appropriate affect Vital Signs: Vital Signs: Last Vital Signs Temp 97.1 F 07/21/25 11:49 Pulse 70 07/21/25 11:49 Resp 18 07/21/25 11:49 BP 120/71 07/21/25 11:49 Pulse Ox 98 07/21/25 11:49 O2 Del Method Room Air 07/21/25 11:49 O2 Flow Rate 2 07/19/25 19:01 BMI result Body Mass Index 19.9 Objective Data Active Medications Acetaminophen (Acetaminophen 325 Mg Tablet) 650 mg PO Q6H PRN PRN Reason: Pain, Mild 1-3,fever,headache Albuterol Sulfate (Albuterol Sulfate (0.083%) 2.5 Mg/3 Ml Vial.Neb) 2.5 mg INHALE Q6H PRN PRN Reason: Wheezing Amlodipine Besylate (Amlodipine Besylate 10 Mg Tablet) 10 mg PO DAILY [facility]; Protocol Last Admin: 07/21/25 08:47 Dose: 10 mg Documented By: NURIA Aspirin (Aspirin Enteric Coated 81 Mg Tablet.) 81 mg PO DAILY [facility] Last Admin: 07/21/25 08:47 Dose: 81 mg Documented By: NURIA Atorvastatin Calcium (Atorvastatin Calcium 40 Mg Tablet) 40 mg PO DAILY [facility] Last Admin: 07/21/25 08:48 Dose: 40 mg Documented By: NURIA Calcium Carbonate (Calcium Carbonate 750 Mg Tab.Chew) 750 mg PO Q4H PRN PRN Reason: Heartburn Dextrose (Dextrose 50 % 25 Gm/50 Ml Syringe) 25 gm IVPUSH Q15M PRN; Protocol PRN Reason: per Hypoglycemia Standing Ord. Enoxaparin Sodium (Enoxaparin Sodium 40 Mg/0.4 Ml Syringe) 40 mg SUBCUT Q24H [facility] Last Admin: 07/21/25 06:06 Dose: 40 mg Documented By: MEDARDO Escitalopram Oxalate (Escitalopram Oxalate 20 Mg Tablet) 20 mg PO DAILY [facility] Last Admin: 07/21/25 08:48 Dose: 20 mg Documented By: NURIA Ferrous Sulfate (Ferrous Sulfate 324 Mg Tablet.) 324 mg PO DAILY [facility] Last Admin: 07/21/25 08:48 Dose: 324 mg Documented By: NURIA Folic Acid (Folic Acid 1 Mg Tablet) 1 mg PO DAILY [facility] Last Admin: 07/21/25 08:48 Dose: 1 mg Documented By: NURIA Gabapentin (Gabapentin 300 Mg Capsule) 300 mg PO TID [facility] Last Admin: 07/21/25 08:46 Dose: 300 mg Documented By: NURIA Glucose (Glucose Gel 15 Gm Gel..Gram.) 15 gm PO Q15M PRN; Protocol PRN Reason: per Hypoglycemia Standing Ord. Guaifenesin (Guaifenesin 200 Mg/10 Ml 10 Ml Liquid) 10 ml PO Q4H PRN PRN Reason: Cough Hydralazine HCl (Hydralazine Hcl 50 Mg Tablet) 100 mg PO TID [facility]; Protocol Last Admin: 07/21/25 08:48 Dose: 100 mg Documented By: NURIA Insulin Human Lispro (Insulin Lispro 100 Unit/Ml 3 Ml Vial) 0 unit SUBCUT QIDACHS [facility]; Protocol Last Admin: 07/21/25 12:04 Dose: 4 unit Documented By: NURIA Losartan Potassium (Losartan Potassium 25 Mg Tablet) 25 mg PO DAILY [facility]; Protocol Last Admin: 07/21/25 08:47 Dose: 25 mg Documented By: NURIA Magnesium Hydroxide (Milk Of Magnesia 30 Ml Oral.Susp) 30 ml PO DAILY PRN PRN Reason: Constipation Magnesium Oxide (Magnesium Oxide 400 Mg Tablet) 400 mg PO DAILY [facility] Last Admin: 07/21/25 08:46 Dose: 400 mg Documented By: NURIA Melatonin (Melatonin 3 Mg Tablet) 6 mg PO BEDTIME PRN PRN Reason: Insomnia Metoprolol Succinate (Metoprolol Succinate Er 100 Mg Tab.Er.24h) 100 mg PO DAILY [facility]; Protocol Last Admin: 07/21/25 08:47 Dose: 100 mg Documented By: NURIA Multivitamins/Vitamin C (Multivitamin Tablet) 1 tab PO DAILY [facility] Last Admin: 07/21/25 08:48 Dose: 1 tab Documented By: NURIA Naltrexone HCl (Naltrexone Hcl 50 Mg Tablet) 50 mg PO DAILY [facility] Last Admin: 07/21/25 08:47 Dose: 50 mg Documented By: NURIA Nicotine (Nicotine 21 Mg Patch.Td24) 21 mg TRANSDERMA DAILY PRN PRN Reason: Smoking Cessation Omeprazole (Omeprazole 40 Mg Capsule.Dr) 40 mg PO DAILY@0630 [facility] Last Admin: 07/21/25 06:06 Dose: 40 mg Documented By: MEDARDO Ondansetron HCl (Ondansetron Hcl 4 Mg/2 Ml Vial) 4 mg IVPUSH Q8H PRN PRN Reason: Nausea and Vomiting Pharmacy Consult (Consult Rx Etoh Phenob Im/Po) 1 each MISCELLANE ONCE PRN; Protocol PRN Reason: Consult order Phenobarbital (Phenobarbital 30 Mg Tablet) 30 mg PO BID [facility]; Protocol Stop: 07/23/25 09:01 Phenobarbital (Phenobarbital 30 Mg Tablet) 30 mg PO Q24H [facility]; Protocol Stop: 07/24/25 21:01 Polyethylene Glycol (Polyethylene Glycol 3350 17 Gm Powd.Pack) 17 gm PO DAILY PRN PRN Reason: Constipation Senna (Sennosides 8.6 Mg Tablet) 17.2 mg PO BEDTIME [facility] Last Admin: 07/20/25 21:49 Dose: 17.2 mg Documented By: MEDARDO Sodium Chloride (0.9 % Sodium Chloride Flush 3 Ml Syringe) 3 ml IVFLUSH QSHIFT [facility] Last Admin: 07/21/25 09:03 Dose: 3 ml Documented By: NURIA Sucralfate (Sucralfate 1 Gm Tablet) 1 gm PO QID [facility] Last Admin: 07/21/25 12:04 Dose: 1 gm Documented By: NURIA Thiamine HCl (Thiamine Hcl 100 Mg Tablet) 100 mg PO DAILY [facility] Last Admin: 07/21/25 08:47 Dose: 100 mg Documented By: NURIA Torsemide (Torsemide 20 Mg Tablet) 60 mg PO DAILY [facility]; Protocol Last Admin: 07/21/25 08:47 Dose: 60 mg Documented By: NURIA Torsemide (Torsemide 20 Mg Tablet) 40 mg PO BEDTIME [facility]; Protocol Last Admin: 07/20/25 21:47 Dose: 40 mg Documented By: MEDARDO Trazodone HCl (Trazodone Hcl 100 Mg Tablet) 100 mg PO BEDTIME [facility] Last Admin: 07/20/25 21:47 Dose: 100 mg Documented By: MEDARDO Labs 07/21/25 07:13 07/21/25 07:13 Labs: Laboratory Results - last 24 hr 07/20/25 07/20/25 07/20/25 16:13 22:30 22:58 MCV MCH MCHC RDW Plt Count MPV Immature Gran % (Auto) Neut % (Auto) Lymph % (Auto) [place] % (Auto) Eos % (Auto) Baso % (Auto) Lymph # (Auto) [place] # (Auto) Eos # (Auto) Baso # (Auto) Abs Immat Gran (auto) Absolute Neuts (auto) Absolute Nucleated RBC Nucleated RBC % (auto) Smear Tech's Comments Anion Gap Estim Creat Clear Calc Estimated GFR POC Glucose 69 203 H 177 H Random Glucose Calcium Magnesium Total Bilirubin AST ALT Alkaline Phosphatase Total Protein Albumin 07/21/25 07/21/25 07/21/25 07:13 07:24 11:21 MCV 89.1 MCH 29.3 MCHC 32.9 RDW 17.6 H Plt Count 269 MPV 10.7 Immature Gran % (Auto) 1.3 H Neut % (Auto) 73.2 H Lymph % (Auto) 15.2 L [place] % (Auto) 8.3 Eos % (Auto) 1.6 Baso % (Auto) 0.4 Lymph # (Auto) 1.5 [place] # (Auto) 0.8 Eos # (Auto) 0.2 Baso # (Auto) 0.0 Abs Immat Gran (auto) 0.12 H Absolute Neuts (auto) 7.0 Absolute Nucleated RBC 0.000 Nucleated RBC % (auto) 0.0 Smear Tech's Comments VERIFIED Anion Gap 14 Estim Creat Clear Calc 71.0 Estimated GFR > 60 POC Glucose 160 H 219 H Random Glucose 156 H Calcium 8.1 L Magnesium 1.2 L* Total Bilirubin 0.2 AST 34 ALT 13 Alkaline Phosphatase 138 H Total Protein 5.6 L Albumin 2.9 L Assessment and Plan (1) Alcohol withdrawal seizure: Status: Resolved Plan Patient is a 49-year-old with current AUD, marijuana use, current cigarette smoker, poor historian, 49 years old man with past medical history significant for HFpEF, COPD on oxygen, PAD, essential hypertension, CKD stage 3, hyperlipidemia and type 2 diabetes on insulin who was just recently DC after 1 week of phenobarb protocol for AW, presents again with CHARANJIT and hyperglycemia, COPD excaerbation. Alcohol withdrawal seizure AUD Alc level 345 Severe electrolyte abnormalities Electrolytes are being checked and repleted to goal Phenobarb protocol to be continued- day 4/ KELVIN on CKD stage 3, resolved post IVF suggestive of prerenal etiology HFpEF HTN Continue home torsemide 60 and 40 dosage Continue home meds as the patient is hypertensive with a SBP in the 170s YARELIS Nocturnal CPAP home settings Nicotine patches ordered Smoking cessation advised Anxiety Cont SSRI + Atarax DVT prophylaxis with Lovenox This note is constructed using voice recognition software. While every effort has been made to ensure accuracy, cargo supervisor errors may have been included. Pt is at high risk of decompensation with risk of DT, electrolyte abn, seizures , hypoxic failure and and needs continued hospitalization. Quality Stroke Does the patient have a stroke diagnosis?: No Reason for No Anti-thrombotic by Day Two: N/A - Med Ordered VTE Prior VTE?: No VTE Risk Level:: Medical - moderate - high VTE Device Contraindication: N/A - Device Ordered VTE Drug Contraindication: N/A - Med Ordered
[2025-07-21] MEDS: Nicotine 21 MG PATCH.TD24 TRANSDERMA (14:28)
[2025-07-21 14:43] LABS: Glucose, Whole Blood 54 mg/dL (60-115)
--- NOTE | 2025-07-21 15:08 | HO.ADDICTPRO ---
Subjective Subjective Date of Service: 07/21/25 Reason For Visit: Ethanol Withdrawal Syndrome Interim History: Patient is a 50 year old male with numerous chronic health issues including CHF, AUD and depression among others. [place] [facility] [place] increasing edema and weight gain over several days. While in ED, patient developed acute alcohol withdrawal sx and was started on phenobarbital. 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 Seen in room 485. He is awake, alert, pleasant and engaged in interview. Somewhat guarded when asked about alcohol use, stating that he was not drinking every day, but was drinking alot when he did drink. He is becoming more aware of his triggers which include being alone, boredom and worsening depressive sx. He started naltrexone following last medical admission, and followed up with [facility] about a week before re-admission. In terms of withdrawal he reports sx are resolved. No sx noted when seen by t/w. Discussed current recovery supports, which patient states are minimal. Reviewed zoom AA meetings as patient stated that sometimes he can't afford gas to drive places. Review of Systems Constitutional: Reports as per HPI and Reports no additional constitutional complaints Mental Status Exam Mental Status Exam Patient Appearance: Appropriate Level of Consciousness: Awake, Appropriate and Alert Patient Behavior: Appropriate and Cooperative Mood Description: Calm Affect Description: Calm Hallucinations: None Thought Process: Intact Thought Content: positive for Intact Judgement: Good Diagnostics Vital Signs (24Hr): Vital Signs - 24 hr 07/20/25 15:26 07/20/25 20:00 07/20/25 21:47 Temperature 98.4 F 96.9 F Pulse Rate 64 67 Respiratory Rate 18 16 Blood Pressure 141/68 H 168/80 H 136/70 Pulse Oximetry 98 94 Oxygen Delivery Method Room Air Room Air 07/20/25 21:49 07/20/25 23:26 07/21/25 03:24 Temperature 97.4 F 97.9 F Pulse Rate 59 56 Respiratory Rate 16 18 Blood Pressure 136/70 134/65 147/72 H Pulse Oximetry 96 96 Oxygen Delivery Method Room Air Room Air 07/21/25 08:00 07/21/25 11:49 Temperature 97.3 F 97.1 F Pulse Rate 63 70 Respiratory Rate 18 18 Blood Pressure 155/80 H 120/71 Pulse Oximetry 97 98 Oxygen Delivery Method Room Air Room Air BMI result Body Mass Index 19.9 Labs 07/21/25 07:13 07/21/25 07:13 Labs: Laboratory Results - last 48 hr 07/19/25 07/19/25 07/20/25 16:57 21:01 07:17 WBC 9.7 RBC 3.95 L Hgb 11.8 L Hct 35.2 L MCV 89.1 MCH 29.9 MCHC 33.5 RDW 18.2 H Plt Count 296 MPV 9.7 Immature Gran % (Auto) 0.8 H Neut % (Auto) 72.7 Lymph % (Auto) 18.0 L [place] % (Auto) 6.6 Eos % (Auto) 1.6 Baso % (Auto) 0.3 Lymph # (Auto) 1.7 [place] # (Auto) 0.6 Eos # (Auto) 0.2 Baso # (Auto) 0.0 Abs Immat Gran (auto) 0.08 H Absolute Neuts (auto) 7.0 Absolute Nucleated RBC 0.000 Nucleated RBC % (auto) 0.0 Smear Tech's Comments Sodium 139 Potassium 3.4 Chloride 102 Carbon Dioxide 27 Anion Gap 13 BUN 4 L Creatinine 0.99 Estim Creat Clear Calc 71.7 Estimated GFR > 60 POC Glucose 190 H 168 H Random Glucose 145 H Calcium 8.4 D Magnesium 1.4 L* Total Bilirubin 0.3 AST 40 H ALT 16 Alkaline Phosphatase 160 H Total Protein 6.4 L Albumin 3.2 L 07/20/25 07/20/25 07/20/25 07:21 11:35 16:13 WBC RBC Hgb Hct MCV MCH MCHC RDW Plt Count MPV Immature Gran % (Auto) Neut % (Auto) Lymph % (Auto) [place] % (Auto) Eos % (Auto) Baso % (Auto) Lymph # (Auto) [place] # (Auto) Eos # (Auto) Baso # (Auto) Abs Immat Gran (auto) Absolute Neuts (auto) Absolute Nucleated RBC Nucleated RBC % (auto) Smear Tech's Comments Sodium Potassium Chloride Carbon Dioxide Anion Gap BUN Creatinine Estim Creat Clear Calc Estimated GFR POC Glucose 157 H 178 H 69 Random Glucose Calcium Magnesium Total Bilirubin AST ALT Alkaline Phosphatase Total Protein Albumin 07/20/25 07/20/25 07/21/25 22:30 22:58 07:13 WBC 9.6 RBC 3.75 L Hgb 11.0 L Hct 33.4 L MCV 89.1 MCH 29.3 MCHC 32.9 RDW 17.6 H Plt Count 269 MPV 10.7 Immature Gran % (Auto) 1.3 H Neut % (Auto) 73.2 H Lymph % (Auto) 15.2 L [place] % (Auto) 8.3 Eos % (Auto) 1.6 Baso % (Auto) 0.4 Lymph # (Auto) 1.5 [place] # (Auto) 0.8 Eos # (Auto) 0.2 Baso # (Auto) 0.0 Abs Immat Gran (auto) 0.12 H Absolute Neuts (auto) 7.0 Absolute Nucleated RBC 0.000 Nucleated RBC % (auto) 0.0 Smear Tech's Comments VERIFIED Sodium 138 Potassium 3.1 L Chloride 98 Carbon Dioxide 29 Anion Gap 14 BUN 5 L Creatinine 1.00 Estim Creat Clear Calc 71.0 Estimated GFR > 60 POC Glucose 203 H 177 H Random Glucose 156 H Calcium 8.1 L Magnesium 1.2 L* Total Bilirubin 0.2 AST 34 ALT 13 Alkaline Phosphatase 138 H Total Protein 5.6 L Albumin 2.9 L 07/21/25 07/21/25 07/21/25 07:24 11:21 14:39 WBC RBC Hgb Hct MCV MCH MCHC RDW Plt Count MPV Immature Gran % (Auto) Neut % (Auto) Lymph % (Auto) [place] % (Auto) Eos % (Auto) Baso % (Auto) Lymph # (Auto) [place] # (Auto) Eos # (Auto) Baso # (Auto) Abs Immat Gran (auto) Absolute Neuts (auto) Absolute Nucleated RBC Nucleated RBC % (auto) Smear Tech's Comments Sodium Potassium Chloride Carbon Dioxide Anion Gap BUN Creatinine Estim Creat Clear Calc Estimated GFR POC Glucose 160 H 219 H 54 L* Random Glucose Calcium Magnesium Total Bilirubin AST ALT Alkaline Phosphatase Total Protein Albumin Imaging Radiology Impressions: ITS Impressions Chest X-Ray 07/18/25 14:38 IMPRESSION: No acute cardiopulmonary abnormality. Electronically signed by: Yevgeniy Jhaveri MD 07/18/2025 02:47 PM EDT Venous Duplex 07/18/25 16:10 IMPRESSION: No evidence of deep venous thrombosis involving the bilateral lower extremities. Electronically signed by: Bony Ta MD 07/18/2025 04:35 PM EDT Medications Medications Current Medications Acetaminophen (Acetaminophen 325 Mg Tablet) 650 mg PO Q6H PRN PRN Reason: Pain, Mild 1-3,fever,headache Albuterol Sulfate (Albuterol Sulfate (0.083%) 2.5 Mg/3 Ml Vial.[place]) 2.5 mg INHALE Q6H PRN PRN Reason: Wheezing Amlodipine Besylate (Amlodipine Besylate 10 Mg Tablet) 10 mg PO DAILY [facility]; Protocol Last Admin: 07/21/25 08:47 Dose: 10 mg Aspirin (Aspirin Enteric Coated 81 Mg Tablet.) 81 mg PO DAILY [facility] Last Admin: 07/21/25 08:47 Dose: 81 mg Atorvastatin Calcium (Atorvastatin Calcium 40 Mg Tablet) 40 mg PO DAILY [facility] Last Admin: 07/21/25 08:48 Dose: 40 mg Benzocaine (Throat Lozenge, Medicated Lozenge) 1 lozenge MUCOUS MEM Q2H PRN PRN Reason: Sore Throat Calcium Carbonate (Calcium Carbonate 750 Mg Tab.Chew) 750 mg PO Q4H PRN PRN Reason: Heartburn Dextrose (Dextrose 50 % 25 Gm/50 Ml Syringe) 25 gm IVPUSH Q15M PRN; Protocol PRN Reason: per Hypoglycemia Standing Ord. Enoxaparin Sodium (Enoxaparin Sodium 40 Mg/0.4 Ml Syringe) 40 mg SUBCUT Q24H [facility] Last Admin: 07/21/25 06:06 Dose: 40 mg Escitalopram Oxalate (Escitalopram Oxalate 20 Mg Tablet) 20 mg PO DAILY [facility] Last Admin: 07/21/25 08:48 Dose: 20 mg Ferrous Sulfate (Ferrous Sulfate 324 Mg Tablet.) 324 mg PO DAILY [facility] Last Admin: 07/21/25 08:48 Dose: 324 mg Folic Acid (Folic Acid 1 Mg Tablet) 1 mg PO DAILY [facility] Last Admin: 07/21/25 08:48 Dose: 1 mg Gabapentin (Gabapentin 300 Mg Capsule) 300 mg PO TID [facility] Last Admin: 07/21/25 08:46 Dose: 300 mg Glucose (Glucose Gel 15 Gm Gel..Gram.) 15 gm PO Q15M PRN; Protocol PRN Reason: per Hypoglycemia Standing Ord. Guaifenesin (Guaifenesin 200 Mg/10 Ml 10 Ml Liquid) 10 ml PO Q4H PRN PRN Reason: Cough Hydralazine HCl (Hydralazine Hcl 50 Mg Tablet) 100 mg PO TID [facility]; Protocol Last Admin: 07/21/25 08:48 Dose: 100 mg Insulin Human Lispro (Insulin Lispro 100 Unit/Ml 3 Ml Vial) 0 unit SUBCUT QIDACHS [facility]; Protocol Last Admin: 07/21/25 12:04 Dose: 4 unit Losartan Potassium (Losartan Potassium 25 Mg Tablet) 25 mg PO DAILY [facility]; Protocol Last Admin: 07/21/25 08:47 Dose: 25 mg Magnesium Hydroxide (Milk Of Magnesia 30 Ml Oral.Susp) 30 ml PO DAILY PRN PRN Reason: Constipation Magnesium Oxide (Magnesium Oxide 400 Mg Tablet) 400 mg PO DAILY [facility] Last Admin: 07/21/25 08:46 Dose: 400 mg Melatonin (Melatonin 3 Mg Tablet) 6 mg PO BEDTIME PRN PRN Reason: Insomnia Metoprolol Succinate (Metoprolol Succinate Er 100 Mg Tab.Er.24h) 100 mg PO DAILY [facility]; Protocol Last Admin: 07/21/25 08:47 Dose: 100 mg Multivitamins/Vitamin C (Multivitamin Tablet) 1 tab PO DAILY [facility] Last Admin: 07/21/25 08:48 Dose: 1 tab Naltrexone HCl (Naltrexone Hcl 50 Mg Tablet) 50 mg PO DAILY [facility] Last Admin: 07/21/25 08:47 Dose: 50 mg Nicotine (Nicotine 21 Mg Patch.Td24) 21 mg TRANSDERMA DAILY PRN PRN Reason: Smoking Cessation Last Admin: 07/21/25 14:28 Dose: 21 mg Nicotine Polacrilex (Nicotine Polacrilex 2 Mg Gum) 2 mg BUCCAL Q1H PRN PRN Reason: Nicotine Cravings Omeprazole (Omeprazole 40 Mg Capsule.Dr) 40 mg PO DAILY@0630 [facility] Last Admin: 07/21/25 06:06 Dose: 40 mg Ondansetron HCl (Ondansetron Hcl 4 Mg/2 Ml Vial) 4 mg IVPUSH Q8H PRN PRN Reason: Nausea and Vomiting Pharmacy Consult (Consult Rx Etoh Phenob Im/Po) 1 each MISCELLANE ONCE PRN; Protocol PRN Reason: Consult order Phenobarbital (Phenobarbital 30 Mg Tablet) 30 mg PO BID [facility]; Protocol Stop: 07/23/25 09:01 Phenobarbital (Phenobarbital 30 Mg Tablet) 30 mg PO Q24H [facility]; Protocol Stop: 07/24/25 21:01 Polyethylene Glycol (Polyethylene Glycol 3350 17 Gm Powd.Pack) 17 gm PO DAILY PRN PRN Reason: Constipation Senna (Sennosides 8.6 Mg Tablet) 17.2 mg PO BEDTIME [facility] Last Admin: 07/20/25 21:49 Dose: 17.2 mg Sodium Chloride (0.9 % Sodium Chloride Flush 3 Ml Syringe) 3 ml IVFLUSH QSHIFT [facility] Last Admin: 07/21/25 09:03 Dose: 3 ml Sucralfate (Sucralfate 1 Gm Tablet) 1 gm PO QID [facility] Last Admin: 07/21/25 12:04 Dose: 1 gm Thiamine HCl (Thiamine Hcl 100 Mg Tablet) 100 mg PO DAILY [facility] Last Admin: 07/21/25 08:47 Dose: 100 mg Torsemide (Torsemide 20 Mg Tablet) 60 mg PO DAILY [facility]; Protocol Last Admin: 07/21/25 08:47 Dose: 60 mg Torsemide (Torsemide 20 Mg Tablet) 40 mg PO BEDTIME [facility]; Protocol Last Admin: 07/20/25 21:47 Dose: 40 mg Trazodone HCl (Trazodone Hcl 100 Mg Tablet) 100 mg PO BEDTIME [facility] Last Admin: 07/20/25 21:47 Dose: 100 mg Allergies Allergies Allergy/AdvReac Type Severity Reaction Status Date / Time dulaglutide (From [facility]) Allergy Unknown Verified 07/18/25 14:22 metformin (METFORMIN) AdvReac Mild DIARRHEA, Verified 07/18/25 14:22 nausea and vomiting Assessment & Plan Assessment & Plan (1) Alcohol use disorder, severe, dependence: Status: Acute Code(s): F10.20 - Alcohol dependence, uncomplicated Assessment and Plan: acute withdrawal managed with phenobarbital taper encouraged to trial AA meeting clarice on his phone follow up appt with [facility] already scheduled, and entered into discharge plan continue naltrexone at [facility] --no additional follow up indicated at this time Total time managing care of this patient today __30__ minutes.
[2025-07-21 15:09] LABS: Glucose, Whole Blood 100 mg/dL (60-115)
[2025-07-21 16:00] VITALS: BP 145/65; PULSE 59; RESP 18; TEMP 36.4; O2SAT 98
[2025-07-21 16:36] LABS: Glucose, Whole Blood 162 mg/dL (60-115)
[2025-07-21 19:40] VITALS: BP 123/65; PULSE 66; RESP 16; TEMP 36.7; O2SAT 98
[2025-07-21 20:44] LABS: Glucose, Whole Blood 224 mg/dL (60-115)
[2025-07-21 23:51] VITALS: BP 97/55; PULSE 71; RESP 16; TEMP 36.6; O2SAT 95
[2025-07-22 03:43] VITALS: BP 111/58; PULSE 78; RESP 16; TEMP 36.5; O2SAT 96
[2025-07-22 06:22] LABS: Hematocrit 36.5 % (42.0-52.0); Hemoglobin 12.0 g/dl (14.0-18.0); Mean Corpuscular Volume 90.1 fL (80.0-98.0); Platelet Count 299 X10*3/uL (160-400); Red Blood Count 4.05 X10*6/uL (4.60-5.80)
[2025-07-22 07:01] LABS: Calcium 8.4 mg/dL (8.4-10.2); Chloride 98 mmol/L (96-108); Potassium 3.9 mmol/L (3.3-5.1); Sodium 134 mmol/L (135-145)
[2025-07-22 07:07] VITALS: BP 116/64; PULSE 76; RESP 17; TEMP 36.1; O2SAT 96
[2025-07-22 07:10] VITALS: BP 116/64
[2025-07-22] MEDS: Aspirin Enteric Coated 81 MG TABLET.DR PO (07:11)
[2025-07-22] MEDS: Ferrous Sulfate 324 MG TABLET.DR PO (07:11)
[2025-07-22] MEDS: 0.9 % Sodium Chloride Flush 3 ML SYRINGE IVFLUSH (07:12)
[2025-07-22] MEDS: Metoprolol Succinate ER 100 MG TAB.ER.24H PO (07:13)
--- NOTE | 2025-07-22 07:54 | HO.PM.IMPN ---
Subjective Subjective Date of Service: 07/22/25 Physical Exam Vital Signs: Vital Signs: Last Vital Signs Temp 97.0 F 07/22/25 07:07 Pulse 76 07/22/25 07:07 Resp 17 07/22/25 07:07 BP 116/64 07/22/25 07:10 Pulse Ox 96 07/22/25 07:07 O2 Del Method Room Air 07/22/25 07:07 O2 Flow Rate 2 07/19/25 19:01 BMI result Body Mass Index 19.9 Objective Data Active Medications Acetaminophen (Acetaminophen 325 Mg Tablet) 650 mg PO Q6H PRN PRN Reason: Pain, Mild 1-3,fever,headache Albuterol Sulfate (Albuterol Sulfate (0.083%) 2.5 Mg/3 Ml Vial.[place]) 2.5 mg INHALE Q6H PRN PRN Reason: Wheezing Amlodipine Besylate (Amlodipine Besylate 10 Mg Tablet) 10 mg PO DAILY [facility]; Protocol Last Admin: 07/22/25 07:11 Dose: 10 mg Documented By: NURIA Aspirin (Aspirin Enteric Coated 81 Mg Tablet.) 81 mg PO DAILY [facility] Last Admin: 07/22/25 07:11 Dose: 81 mg Documented By: NURIA Atorvastatin Calcium (Atorvastatin Calcium 40 Mg Tablet) 40 mg PO DAILY [facility] Last Admin: 07/22/25 07:12 Dose: 40 mg Documented By: NURIA Benzocaine (Throat Lozenge, Medicated Lozenge) 1 lozenge MUCOUS MEM Q2H PRN PRN Reason: Sore Throat Calcium Carbonate (Calcium Carbonate 750 Mg Tab.Chew) 750 mg PO Q4H PRN PRN Reason: Heartburn Dextrose (Dextrose 50 % 25 Gm/50 Ml Syringe) 25 gm IVPUSH Q15M PRN; Protocol PRN Reason: per Hypoglycemia Standing Ord. Enoxaparin Sodium (Enoxaparin Sodium 40 Mg/0.4 Ml Syringe) 40 mg SUBCUT Q24H [facility] Last Admin: 07/22/25 06:04 Dose: 40 mg Documented By: SCOTT Escitalopram Oxalate (Escitalopram Oxalate 20 Mg Tablet) 20 mg PO DAILY [facility] Last Admin: 07/22/25 07:11 Dose: 20 mg Documented By: NURIA Ferrous Sulfate (Ferrous Sulfate 324 Mg Tablet.) 324 mg PO DAILY [facility] Last Admin: 07/22/25 07:11 Dose: 324 mg Documented By: NURIA Folic Acid (Folic Acid 1 Mg Tablet) 1 mg PO DAILY [facility] Last Admin: 07/22/25 07:11 Dose: 1 mg Documented By: NURIA Gabapentin (Gabapentin 300 Mg Capsule) 300 mg PO TID [facility] Last Admin: 07/22/25 07:11 Dose: 300 mg Documented By: NURIA Glucose (Glucose Gel 15 Gm Gel..Gram.) 15 gm PO Q15M PRN; Protocol PRN Reason: per Hypoglycemia Standing Ord. Guaifenesin (Guaifenesin 200 Mg/10 Ml 10 Ml Liquid) 10 ml PO Q4H PRN PRN Reason: Cough Hydralazine HCl (Hydralazine Hcl 50 Mg Tablet) 100 mg PO TID [facility]; Protocol Last Admin: 07/22/25 07:10 Dose: 100 mg Documented By: NURIA Insulin Human Lispro (Insulin Lispro 100 Unit/Ml 3 Ml Vial) 0 unit SUBCUT QIDACHS [facility]; Protocol Last Admin: 07/22/25 07:12 Dose: 1 unit Documented By: NURIA Losartan Potassium (Losartan Potassium 25 Mg Tablet) 25 mg PO DAILY [facility]; Protocol Last Admin: 07/22/25 07:11 Dose: 25 mg Documented By: NURIA Magnesium Hydroxide (Milk Of Magnesia 30 Ml Oral.Susp) 30 ml PO DAILY PRN PRN Reason: Constipation Magnesium Oxide (Magnesium Oxide 400 Mg Tablet) 400 mg PO DAILY [facility] Last Admin: 07/22/25 07:11 Dose: 400 mg Documented By: NURIA Melatonin (Melatonin 3 Mg Tablet) 6 mg PO BEDTIME PRN PRN Reason: Insomnia Metoprolol Succinate (Metoprolol Succinate Er 100 Mg Tab.Er.24h) 100 mg PO DAILY [facility]; Protocol Last Admin: 07/22/25 07:13 Dose: 100 mg Documented By: NURIA Multivitamins/Vitamin C (Multivitamin Tablet) 1 tab PO DAILY [facility] Last Admin: 07/22/25 07:12 Dose: 1 tab Documented By: NURIA Naltrexone HCl (Naltrexone Hcl 50 Mg Tablet) 50 mg PO DAILY [facility] Last Admin: 07/22/25 07:12 Dose: 50 mg Documented By: NURIA Nicotine (Nicotine 21 Mg Patch.Td24) 21 mg TRANSDERMA DAILY PRN PRN Reason: Smoking Cessation Last Admin: 07/21/25 14:28 Dose: 21 mg Documented By: NURIA Nicotine Polacrilex (Nicotine Polacrilex 2 Mg Gum) 2 mg BUCCAL Q1H PRN PRN Reason: Nicotine Cravings Omeprazole (Omeprazole 40 Mg Capsule.Dr) 40 mg PO DAILY@0630 [facility] Last Admin: 07/22/25 06:04 Dose: 40 mg Documented By: SCOTT Ondansetron HCl (Ondansetron Hcl 4 Mg/2 Ml Vial) 4 mg IVPUSH Q8H PRN PRN Reason: Nausea and Vomiting Pharmacy Consult (Consult Rx Etoh Phenob Im/Po) 1 each MISCELLANE ONCE PRN; Protocol PRN Reason: Consult order Phenobarbital (Phenobarbital 30 Mg Tablet) 30 mg PO BID [facility]; Protocol Stop: 07/23/25 09:01 Last Admin: 07/22/25 07:12 Dose: 30 mg Documented By: NURIA Phenobarbital (Phenobarbital 30 Mg Tablet) 30 mg PO Q24H [facility]; Protocol Stop: 07/24/25 21:01 Polyethylene Glycol (Polyethylene Glycol 3350 17 Gm Powd.Pack) 17 gm PO DAILY PRN PRN Reason: Constipation Senna (Sennosides 8.6 Mg Tablet) 17.2 mg PO BEDTIME [facility] Last Admin: 07/21/25 22:12 Dose: 17.2 mg Documented By: SCOTT Sodium Chloride (0.9 % Sodium Chloride Flush 3 Ml Syringe) [facility] Last Admin: 07/22/25 07:12 Dose: 3 ml Documented By: NURIA Sucralfate (Sucralfate 1 Gm Tablet) 1 gm PO QID [facility] Last Admin: 07/22/25 07:11 Dose: 1 gm Documented By: NURIA Thiamine HCl (Thiamine Hcl 100 Mg Tablet) 100 mg PO DAILY [facility] Last Admin: 07/22/25 07:12 Dose: 100 mg Documented By: NURIA Torsemide (Torsemide 20 Mg Tablet) 60 mg PO DAILY [facility]; Protocol Last Admin: 07/22/25 07:12 Dose: 60 mg Documented By: NURIA Torsemide (Torsemide 20 Mg Tablet) 40 mg PO BEDTIME [facility]; Protocol Last Admin: 07/21/25 22:14 Dose: 40 mg Documented By: SCOTT Trazodone HCl (Trazodone Hcl 100 Mg Tablet) 100 mg PO BEDTIME [facility] Last Admin: 07/21/25 22:14 Dose: 100 mg Documented By: SCOTT Labs 07/22/25 05:59 07/22/25 05:59 Labs: Laboratory Results - last 24 hr 07/21/25 07/21/25 07/21/25 07:13 07:24 11:21 MCV 89.1 MCH 29.3 MCHC 32.9 RDW 17.6 H Plt Count 269 MPV 10.7 Immature Gran % (Auto) 1.3 H Neut % (Auto) 73.2 H Lymph % (Auto) 15.2 L [place] % (Auto) 8.3 Eos % (Auto) 1.6 Baso % (Auto) 0.4 Lymph # (Auto) 1.5 [place] # (Auto) 0.8 Eos # (Auto) 0.2 Baso # (Auto) 0.0 Abs Immat Gran (auto) 0.12 H Absolute Neuts (auto) 7.0 Absolute Nucleated RBC 0.000 Nucleated RBC % (auto) 0.0 Smear Tech's Comments VERIFIED Anion Gap 14 Estim Creat Clear Calc 71.0 Estimated GFR > 60 POC Glucose 160 H 219 H Random Glucose 156 H Calcium 8.1 L Magnesium 1.2 L* Total Bilirubin 0.2 AST 34 ALT 13 Alkaline Phosphatase 138 H Total Protein 5.6 L Albumin 2.9 L 07/21/25 07/21/25 07/21/25 14:39 15:05 16:25 MCV MCH MCHC RDW Plt Count MPV Immature Gran % (Auto) Neut % (Auto) Lymph % (Auto) [place] % (Auto) Eos % (Auto) Baso % (Auto) Lymph # (Auto) [place] # (Auto) Eos # (Auto) Baso # (Auto) Abs Immat Gran (auto) Absolute Neuts (auto) Absolute Nucleated RBC Nucleated RBC % (auto) Smear Tech's Comments Anion Gap Estim Creat Clear Calc Estimated GFR POC Glucose 54 L* 100 162 H Random Glucose Calcium Magnesium Total Bilirubin AST ALT Alkaline Phosphatase Total Protein Albumin 07/21/25 07/22/25 07/22/25 20:37 05:02 05:59 MCV 90.1 MCH 29.6 MCHC 32.9 RDW 17.5 H Plt Count 299 MPV 10.5 Immature Gran % (Auto) 1.4 H Neut % (Auto) 72.7 Lymph % (Auto) 16.2 L [place] % (Auto) 7.6 Eos % (Auto) 1.5 Baso % (Auto) 0.6 Lymph # (Auto) 1.3 [place] # (Auto) 0.6 Eos # (Auto) 0.1 Baso # (Auto) 0.1 Abs Immat Gran (auto) 0.11 H Absolute Neuts (auto) 5.9 Absolute Nucleated RBC 0.000 Nucleated RBC % (auto) 0.0 Smear Tech's Comments Anion Gap 13 Estim Creat Clear Calc 44.7 Estimated GFR 46 POC Glucose 224 H 375 H* Random Glucose 383 H* Calcium 8.4 Magnesium 1.9 Total Bilirubin 0.2 AST 28 ALT 19 Alkaline Phosphatase 145 H Total Protein 6.3 L Albumin 3.2 L 07/22/25 07:04 MCV MCH MCHC RDW Plt Count MPV Immature Gran % (Auto) Neut % (Auto) Lymph % (Auto) [place] % (Auto) Eos % (Auto) Baso % (Auto) Lymph # (Auto) [place] # (Auto) Eos # (Auto) Baso # (Auto) Abs Immat Gran (auto) Absolute Neuts (auto) Absolute Nucleated RBC Nucleated RBC % (auto) Smear Tech's Comments Anion Gap Estim Creat Clear Calc Estimated GFR POC Glucose 348 H Random Glucose Calcium Magnesium Total Bilirubin AST ALT Alkaline Phosphatase Total Protein Albumin Quality Stroke Does the patient have a stroke diagnosis?: No Reason for No Anti-thrombotic by Day Two: N/A - Med Ordered VTE Prior VTE?: No VTE Risk Level:: Medical - moderate - high VTE Device Contraindication: N/A - Device Ordered VTE Drug Contraindication: N/A - Med Ordered
--- NOTE | 2025-07-22 09:41 | PC.NURSE ---
Pt ambulates in [place] independently. States feeling back at baseline.
[2025-07-22 11:12] VITALS: BP 119/62; PULSE 76; RESP 16; TEMP 36.1; O2SAT 98
--- NOTE | 2025-07-22 11:21 | PM.DS ---
DS: Providers Provider Date of Service: 07/22/25 Date of admission: 07/19/25 05:06 Date of discharge: 07/22/25 Primary care physician: Zari Henry MD Consults: 07/19/25 05:12 Addiction Medicine Provider Routine Consulting Provider: Addiction Covering Reason for consultation: multiple adm for ETOH WD, pt asking for detox Has provider been notified: No 07/19/25 06:04 Consult to Psychiatry Routine Consulting Provider: [facility] Reason for consultation: Worsening depression anxiety with no SI or HI, severe alcohol abuse Has provider been notified: No DS: Diagnosis Discharge Diagnosis (1) Alcohol use disorder, severe, dependence: Status: Acute DS: Summary Hospital Course Hospital Course: Alcohol withdrawal seizure AUD Alc level 345 Severe electrolyte abnormalities Patient is a 49-year-old with current AUD, marijuana use, current cigarette smoker, poor historian, 49 years old man with past medical history significant for HFpEF, COPD on oxygen, PAD, essential hypertension, CKD stage 3, hyperlipidemia and type 2 diabetes on insulin who was just recently DC after 1 week of phenobarb protocol for AW, presents again with CHARANJIT and hyperglycemia, COPD excaerbation. Alcohol withdrawal was treated with 5 days of phenobarb protocol, has remained seizure-free since admission with treatment, electrolytes were checked and repleted to goal. Addiction Medicine consulted and the patient reported that he would like to go to a rehab. Patient high-risk of readmission secondary to noncompliance with medication and ongoing severe alcohol use dependence. KELVIN on CKD stage 3, resolved post IVF suggestive of prerenal etiology HFpEF HTN Continued home torsemide 60 and 40 dosage Continue home antihypertensive meds given hypertension-no changes in medications as the patient is noncompliant he needs to continue his medications to maintain normotension YARELIS Severe nicotine dependence Nocturnal CPAP home settings Nicotine patches ordered Smoking cessation advised Anxiety Cont SSRI + Atarax DVT prophylaxis with Lovenox This note is constructed using voice recognition software. While every effort has been made to ensure accuracy, wheel polisher errors may have been included. Patient is euvolemic, but seizure-free and is without any concerns during this admission. Patient responded well to the treatment. Time spent discussing smoking cessation with patient: more than 10 minutes Time Attestation Discharge Coordination Time (in mins): 35 Quality: Safe Use of Opioids Does Pt have an Active Cancer Diagnosis on the Problem List?: No Quality: Stroke Does the patient have a stroke diagnosis?: No Physical Exam Vital Signs: Vital Signs: Last Vital Signs Temp 97.0 F 07/22/25 11:12 Pulse 76 07/22/25 11:12 Resp 16 07/22/25 11:12 BP 119/62 07/22/25 11:12 Pulse Ox 98 07/22/25 11:12 O2 Del Method Room Air 07/22/25 11:12 O2 Flow Rate 2 07/19/25 19:01 BMI result Body Mass Index 19.9 DS: Data Data Completed and Pending Completed studies during hospitalization [Text1]: Procedures Assistance with Respiratory Ventilation, Less than 24 Consecutive Hours, Continuous Positive Airway Pressure (11/19/24) Detoxification Services for Substance Abuse Treatment (07/01/25) Excision of Esophagus, Via Natural or Artificial Opening Endoscopic, Diagnostic (04/26/24) Excision of Stomach, Pylorus, Via Natural or Artificial Opening Endoscopic, Diagnostic (04/26/24) Introduction of Remdesivir Anti-infective into Peripheral Vein, Percutaneous Approach, [employer] (12/22/23) Labs on day of discharge: Laboratory Results - last 24 hr 07/21/25 07/21/25 07/21/25 11:21 14:39 15:05 WBC RBC Hgb Hct MCV MCH MCHC RDW Plt Count MPV Immature Gran % (Auto) Neut % (Auto) Lymph % (Auto) [place] % (Auto) Eos % (Auto) Baso % (Auto) Lymph # (Auto) [place] # (Auto) Eos # (Auto) Baso # (Auto) Abs Immat Gran (auto) Absolute Neuts (auto) Absolute Nucleated RBC Nucleated RBC % (auto) Sodium Potassium Chloride Carbon Dioxide Anion Gap BUN Creatinine Estim Creat Clear Calc Estimated GFR POC Glucose 219 H 54 L* 100 Random Glucose Calcium Magnesium Total Bilirubin AST ALT Alkaline Phosphatase Total Protein Albumin 07/21/25 07/21/25 07/22/25 16:25 20:37 05:02 WBC RBC Hgb Hct MCV MCH MCHC RDW Plt Count MPV Immature Gran % (Auto) Neut % (Auto) Lymph % (Auto) [place] % (Auto) Eos % (Auto) Baso % (Auto) Lymph # (Auto) [place] # (Auto) Eos # (Auto) Baso # (Auto) Abs Immat Gran (auto) Absolute Neuts (auto) Absolute Nucleated RBC Nucleated RBC % (auto) Sodium Potassium Chloride Carbon Dioxide Anion Gap BUN Creatinine Estim Creat Clear Calc Estimated GFR POC Glucose 162 H 224 H 375 H* Random Glucose Calcium Magnesium Total Bilirubin AST ALT Alkaline Phosphatase Total Protein Albumin 07/22/25 07/22/25 07/22/25 05:59 07:04 10:59 WBC 8.1 RBC 4.05 L Hgb 12.0 L Hct 36.5 L MCV 90.1 MCH 29.6 MCHC 32.9 RDW 17.5 H Plt Count 299 MPV 10.5 Immature Gran % (Auto) 1.4 H Neut % (Auto) 72.7 Lymph % (Auto) 16.2 L [place] % (Auto) 7.6 Eos % (Auto) 1.5 Baso % (Auto) 0.6 Lymph # (Auto) 1.3 [place] # (Auto) 0.6 Eos # (Auto) 0.1 Baso # (Auto) 0.1 Abs Immat Gran (auto) 0.11 H Absolute Neuts (auto) 5.9 Absolute Nucleated RBC 0.000 Nucleated RBC % (auto) 0.0 Sodium 134 L Potassium 3.9 D Chloride 98 Carbon Dioxide 27 Anion Gap 13 BUN 12 Creatinine 1.59 H Estim Creat Clear Calc 44.7 Estimated GFR 46 POC Glucose 348 H 112 Random Glucose 383 H* Calcium 8.4 Magnesium 1.9 Total Bilirubin 0.2 AST 28 ALT 19 Alkaline Phosphatase 145 H Total Protein 6.3 L Albumin 3.2 L Discharge Plan Discharge Anticipated Discharge Date/Time: 07/22/25 11:18 Patient Disposition: Home, Self-Care Discharge Diagnosis: Alcohol withdrawal seizure secondary to noncompliance and severe alcohol dependence Referrals: [facility] [Provider Group] - 07/29/25 3:00 pm Referral Note: Please continue your naltrexone at home, and see Talya as scheduled. Zari Henry MD [Primary Care Provider, Internal Medicine] - 3 days Discharge Medications: Continued hydralazine 100 mg tablet 100 mg PO TID 30 Days Qty: 90 5RF trazodone 50 mg tablet 100 mg PO BEDTIME atorvastatin 40 mg tablet 40 mg PO DAILY metoprolol succinate 100 mg tablet extended release 24 hr 100 mg PO DAILY amlodipine 5 mg tablet 10 mg PO DAILY omeprazole 40 mg capsule,delayed release(DR/EC) 40 mg PO DAILY@0630 sucralfate 1 gram tablet 1 g PO QID ferrous sulfate [iron] 325 mg (65 mg iron) tablet 325 mg PO DAILY Qty: 30 0RF gabapentin 300 mg capsule 300 mg PO TID escitalopram oxalate 20 mg tablet 20 mg PO DAILY One-A-Day Men's Multivitamin 400-20-300 mcg Tablet 1 tab PO DAILY (DME) Omnipod 5 G6 Intro Kit (Gen 5) Cartridge SUBCUT insulin lispro 100 unit/mL solution 100 unit subcut DIRECTED Rx Instructions: INJECT up to 100 UNITS DIRECTED SEE ADMIN INSTRUCTIONS. USE PER INSULIN PUMP Q3D. torsemide 20 mg tablet 40 mg PO BEDTIME torsemide 20 mg tablet 60 mg PO DAILY magnesium oxide 400 mg (241.3 mg magnesium) tablet 400 mg PO DAILY losartan 25 mg tablet 25 mg PO DAILY albuterol sulfate 2.5 mg /3 mL (0.083 %) solution for nebulization 2.5 mg inhalation Q6H PRN (Reason: wheezing) nicotine 21 mg/24 hr patch 24 hour 21 mg transdermal DAILY PRN (Reason: Smoking Cessation) aspirin 81 mg tablet,delayed release (DR/EC) 81 mg PO DAILY naltrexone 50 mg tablet 50 mg PO DAILY 30 Days Qty: 30 0RF Rx Instructions: One tablet by mouth daily. Discharge Orders: Discharge Order (Routine); Ordered 07/22/25 Ordered By: Vickie Antony Diet: Low salt diet Activity on Discharge: As tolerated Stand Alone Forms: Patient Portal Discharge page Print Language: Latvian Care Plan Goals: Maintaining sobriety Patient reports he has wants to go to a rehab facility Health Concerns: See above Plan of Treatment: See above Assessment: See above Patient Instructions: Abuse of Alcohol (DC)
--- NOTE | 2025-07-22 11:49 | MHC.CM.PN ---
Pt. has been medically cleared to [place], he will go home via [facility] shuttle, plan is self care.
== END 2025-07-22 12:15 | disposition home or self-care (01) | DRG 775 ==
LOC: HO.ED 07-19 05:05 → HO.EDOVER 07-19 05:23 → HO.IMC 07-19 19:17
PROVIDERS: Emergency Medicine; Emergency Medicine Emergency Medical Services; Nurse Practitioner Family; Admitting Provider Internal Medicine; Emergency Provider Emergency Medicine; PCP Internal Medicine; Visit Provider Student in an Organized Health Care Education/Training Program
DX: F10.239 Alcohol dependence with withdrawal, unspecified (principal); F10.229 Alcohol dependence with intoxication, unspecified; E87.0 Hyperosmolality and hypernatremia; N17.9 Acute kidney failure, unspecified; I27.20 Pulmonary hypertension, unspecified; I13.0 Hypertensive heart and chronic kidney disease with heart failure and stage 1 through stage 4 chronic kidney disease, or unspecified chronic kidney disease; E11.22 Type 2 diabetes mellitus with diabetic chronic kidney disease; I50.22 Chronic systolic (congestive) heart failure; N18.30 Chronic kidney disease, stage 3 unspecified; K21.9 Gastro-esophageal reflux disease without esophagitis; G47.33 Obstructive sleep apnea (adult) (pediatric); E11.65 Type 2 diabetes mellitus with hyperglycemia; F41.9 Anxiety disorder, unspecified; J43.9 Emphysema, unspecified; F17.210 Nicotine dependence, cigarettes, uncomplicated; Z71.6 Tobacco abuse counseling; F33.9 Major depressive disorder, recurrent, unspecified; Y90.8 Blood alcohol level of 240 mg/100 ml or more; Z99.81 Dependence on supplemental oxygen; E83.42 Hypomagnesemia; Z79.4 Long term (current) use of insulin; Z79.82 Long term (current) use of aspirin; Z79.899 Other long term (current) drug therapy
CPT/HCPCS: 36415; 71045; 80048; 80053; 80076; 80307; 82803; 82947; 83735; 83880; 84484; 85025; 93005; 93970; 97161; 99285; J1650; J2560; J3360; J3411; J3475; S9485

== ENCOUNTER → 2025-07-18 14:26 | Outpatient (BNV) | payer OTHER, SELFPAY | PROVIDERS: Emergency Provider Emergency Medicine; PCP Internal Medicine; Visit Provider Radiology Diagnostic Radiology | DX: R22.43 Localized swelling, mass and lump, lower limb, bilateral (principal); M79.661 Pain in right lower leg; M79.662 Pain in left lower leg; R06.00 Dyspnea, unspecified | CPT/HCPCS: 71045; 93970 ==

== ENCOUNTER → 2025-07-18 14:26 | Outpatient (BNV) | payer OTHER, SELFPAY | PROVIDERS: Admitting Provider Internal Medicine; Emergency Provider Emergency Medicine; PCP Internal Medicine; Visit Provider Internal Medicine | DX: R00.0 Tachycardia, unspecified (principal) | CPT/HCPCS: 93010 ==

== ENCOUNTER → 2025-07-19 05:06 | Outpatient (BNV) | payer OTHER, SELFPAY | PROVIDERS: Admitting Provider Internal Medicine; Emergency Provider Emergency Medicine; PCP Internal Medicine; Visit Provider Nurse Practitioner Family | DX: F10.20 Alcohol dependence, uncomplicated (principal) | CPT/HCPCS: 99223; 99232; 99239; 99499 ==

== ENCOUNTER → 2025-07-19 05:06 | Outpatient (BNV) | payer OTHER, SELFPAY | PROVIDERS: Admitting Provider Internal Medicine; Emergency Provider Emergency Medicine; PCP Internal Medicine; Visit Provider Psychiatry & Neurology Psychiatry | DX: F10.20 Alcohol dependence, uncomplicated (principal) | CPT/HCPCS: 99231 ==

== ENCOUNTER 2025-07-30 22:37 | Inpatient (IN) | payer OTHER, SELFPAY ==
--- NOTE | ~2025-07-30 | CT_ITS ---
CLINICAL HISTORY: fall, severe head trauma CT cervical spine without contrast Comparison: CT/SR - CT CERVICAL SPINE WITHOUT IV CONTRAST - 11/03/22 05:20 EST Findings: Normal vertebral body alignment. Mild multilevel degenerative change. No acute fractures or dislocations. No acute findings on limited view of the intracranial contents. Numerous enlarged lymph nodes within the left supraclavicular region and within the upper mediastinum on the left. These have enlarged since the patient's prior exam in 2022 Lung apices are clear. IMPRESSION: No acute fracture or malalignment. Enlarged left supraclavicular and upper left mediastinal lymph nodes. Recommend further workup. This document has been electronically signed by: Yaquelin Arrington MD on 08/03/2025 07:34:45
--- NOTE | ~2025-07-30 | CT_ITS ---
CLINICAL HISTORY: Fall, head trauma CT head without contrast Comparison: CT/SR - CT HEAD WITHOUT IV CONTRAST - 07/01/2025 08:24 AM EDT Findings: No intra-axial mass, midline shift, hydrocephalus, or acute hemorrhage. No significant atrophy-like change or white matter disease. There is no sinus or mastoid fluid. The orbits are within normal limits. No skull fracture. IMPRESSION: 1. No acute intracranial findings. This document has been electronically signed by: Yaquelin Arrington MD on 08/03/2025 07:46:30
[2025-07-30 22:49] VITALS: BP 180/91; PULSE 100; RESP 18; TEMP 36.2; O2SAT 93
[2025-07-30 23:10] VITALS: BP 134/78; BP 156/83; PULSE 91; PULSE 96; RESP 18; TEMP 36.6; O2SAT 89; O2SAT 91; BMI 21.6
--- OUTSIDE RECORDS SUMMARY | 2025-07-30 23:59 | XMS_ITS | Encounter Summary ---
Author Organization [facility] Address [address] [place] [address] Care Team Providers Care Rivet Heater Name Role Phone Zari Henry MD Primary Care Provider [phone] Reason for Visit * Reason Onset Date Comments faxed order 07/22/2025 [facility] re Encounter Details Date Type Department Care Team (Late st Contact Info) Description 07/22/2025 Telephone Adult Medicine [facility] [address], [place] [phone] Zari Henry MD [address] [place], [place] Social History Tobacco Use Types Packs/Day [...] as of this encounter Progress Notes * Nga Nunez - 07/22/2025 2:52 PM EDT [facility] order received please sign and fax to [phone] documented in this encounter Plan of Treatment Upcoming Encounters Date Type Department Care Team (Late st Contact Info) Description 08/07/2025 2:30 PM EDT Office Visit [address] [phone] Zari Henry MD [address] [place], [place] 08/25/2025 2:30 PM EDT Office Visit [address] [phone] Nadege Begum PA [address] [place], [place] 09/03/2025 2:00 PM EST Consult Orthopedic Surgery - [place] [address] [facility] [address] [place] [phone] Rivas Norman DPM [address] [address] 09/08/2025 2:15 PM EST Office Visit Pulmonology - [place] 175 [facility] [address] [place] [address] Nisa Machado MD [address] [facility] [address] [place] [address] 09/29/2025 3:30 PM EST Consult Vascular Surgery - [place] [address] [facility] [address] [place] [phone] Enedina Westbrook PA [address] [place] [phone] documented as of this encounter Visit Diagnoses Not on filedocumented in this encounter Care Teams Rivet Heater Relationship Specialty Start Date End Date Zari Henry MD [address] [place] [address] PCP - General Internal Medicine 08/17/21 documented as of this encounter
--- OUTSIDE RECORDS SUMMARY | 2025-07-30 23:59 | XMS_ITS | Clinical Summary ---
Author Organization [facility] [employer] [facility] Address [address] [place] [address] Phone Care Team Providers Care Shot Blast Equipment Operator Name Role Phone Zari Henry MD Primary Care Provider [phone] Allergies Active Allergy Reactions Criticality Noted Date Comments Dulaglutide Nausea And Vomiting 06/22/2021 Metformin 07/04/2017 Gi distress Medications aspirin 81 mg EC tablet Take 1 tablet (81 mg total) by mouth 1 (one) time each day. 12/23/19 21 Active lisinopril (PRINIVIL,ZESTRIL ) 40 mg tablet Take 1 tablet (40 mg total) by mouth 1 (one) time each day. 11/02/19 22 Active nicotine (Nicotrol) 10 mg inhaler 07/16/20 21 Active tadalafiL (CIALIS) 20 mg tablet Take 1 tablet (20 mg total) by mouth. 06/08/20 20 Active isosorbide mononitrate (IMDUR) 30 mg 24 hr tablet TAKE 1 TABLET BY MOUTH EVERY DAY 90 tablet 1 12/09/19 25 Active Ventolin HFA 90 mcg/actuation inhaler INHALE 2 PUFFS INTO THE LUNGS EVERY 4 HOURS NEEDED FOR WHEEZING FOR UP TO 30 DAYS. 18 each 2 09/25/20 24 Active oxyCODONE-acetami nophen (PERCOCET) 5-325 mg per tabletIndications [...] day. 90 tablet 1 01/14/20 25 Active sucralfate (CARAFATE) 1 gram tablet Take 1 tablet (1 g total) by mouth 4 (four) times a day. 360 tablet 1 01/14/20 25 Active traZODone (DESYREL) 100 mg tablet Take 1 tablet (100 mg total) by mouth at bedtime. 90 each 1 02/08/20 25 Active metoprolol succinate (TOPROL-XL) 100 mg 24 hr tablet TAKE 1 TABLET BY MOUTH EVERY DAY 90 tablet 1 02/24/20 25 Active insulin lispro 100 unit/mL injectionIndicati ons:Type 2 diabetes mellitus with diabetic nephropathy ([facility] V24, [facility] V28) INJECT 100 UNITS DIRECTED SEE ADMIN INSTRUCTIONS. USE PER INSULIN PUMP 30 mL 2 03/05/20 25 Active hydrALAZINE (APRESOLINE) 100 mg tablet Take 1 tablet (100 mg total) by mouth 3 (three) times a day. 270 tablet 1 04/09/20 25 Active albuterol 2.5 mg /3 mL (0.083 %) nebulizer solution Take 3 mL (2.5 mg total) by nebulization every 6 (six) hours if needed for wheezing. 300 mL 3 04/22/20 25 026 Active amLODIPine (NORVASC) 5 mg tablet Take 2 tablets (10 mg total) by mouth 1 (one) time each day. 180 tablet 1 04/23/20 25 Active insulin pump cart,cont inf,BT (Omnipod Dash Pods, Gen 4,) cartridgeIndicati ons:DM (diabetes mellitus), type 2 with peripheral vascular complications ([facility] V24, [facility] V28) INJECT 1 EACH UNDER THE SKIN EVERY 3 DAYS 15 each 11 05/09/20 25 Active torsemide (DEMADEX) 20 mg tablet TAKE 3 TABLETS BY MOUTH EVERY AM AND TAKE 2 TABLETS IN THE PM 150 tablet 1 05/21/20 25 Active magnesium oxide (MAG-OX) 400 mg (241.3 elemental magnesium) tablet 05/13/20 25 Active omeprazole (PriLOSEC) [address] capsule Take 1 capsule (40 mg total) by mouth 1 (one) time each day. 90 capsule 1 06/20/20 25 Active gabapentin (NEURONTIN) 300 mg capsule Take 1 capsule (300 mg total) by mouth 3 (three) times a day. 270 each 06/20/20 25 Active escitalopram (LEXAPRO) 20 mg tablet Take 1 tablet (20 mg total) by mouth 1 (one) time each day. 90 each 06/20/20 25 026 Active Active Problems Problem Noted Date Diagnosed Date DM (diabetes mellitus), type 2 with peripheral vascular complications ([facility] V24, [facility] V28) 12/05/2024 MAGDA (iron deficiency anemia) 04/06/2023 Requires supplemental oxygen 04/06/2023 CHF (congestive heart failure) ([facility] V24, [facility] V28) 01/06/2023 Obstructive sleep apnea syndrome 05/09/2022 Adrenal mass ([facility] V24) 03/24/2022 Claudication of both lower extremities ([facility] V24) 12/27/2021 Sleep related hypoxia 08/17/2021 Overview (07/12/2024): On oxygen at nighttime Asthma-COPD overlap syndrome ([facility] V24, [facility] V28) 08/17/2021 Overview (12/11/2024): Microscopic hematuria 12/25/2020 Overview (11/29/2024): Normal renal ultrasound, referred to urology for further work-up Condyloma acuminata 11/18/2020 Overview (11/29/2024): Condyloma acuminata 11/19 penis PAD (peripheral artery disease) ([facility] V24) Overview (11/29/2024): With LLE angioplasty 01/2020 Polycythemia 06/04/2018 Anxiety 08/01/2017 Microalbuminuria 04/14/2017 Depression 01/31/2017 HTN (hypertension), benign 01/31/2017 Hyperlipidemia 01/31/2017 Resolved Problems Problem Noted Date Diagnosed Date Resolved Date Type 2 diabetes mellitus ([facility] V24, [facility] V28) 01/31/2017 12/05/2024 Encounters Date Type Department Care Team Description 07/22/2025 Telephone Adult Medicine [address] [phone] Zari Henry MD 07/17/2025 Telephone Adult Medicine [address] [phone] Toya Barger [place] 07/15/2025 Telephone Pulmonology [address] [phone] Nisa Machado MD 07/15/2025 Telephone Adult Medicine [address] [phone] Toya Barger [place] 07/14/2025 Telephone Adult Medicine [address] [phone] Zari Henry MD 2025 Telephone Adult Medicine [address] [phone] Toya Barger [place] 07/07/2025 Telephone Adult Medicine [address] [phone] Zari Henry MD 06/25/2025 Telephone Pulmonology [facility] [address] [phone] Nisa Machado MD 06/23/2025 Billing Patient Not Present Adult Medicine [address] [phone] Zari Henry MD 06/20/2025 1:00 PM EDT Office Visit Adult [address] [phone] Zari Henry MD Tachycardia (Primary Dx); COPD exacerbation ([facility]24, [facility] V28); KELVIN (acute kidney injury) ([facility] V24); Dehydration; Diarrhea, unspecified type; HTN (hypertension), benign; Acute on chronic right-sided congestive heart failure ([facility] V24, [facility] V28); DM (diabetes mellitus), type 2 with peripheral vascular complications ([facility] V24, [facility] V28); PVD (peripheral vascular disease) ([facility] V24); Claudication of both lower extremities ([facility] V24) 06/17/2025 Telephone Adult Medicine [address] [phone] Zari Henry MD 06/16/2025 Telephone Adult Medicine [address] [phone] Zari Henry MD 06/12/2025 Telephone Adult Medicine [address] [phone] Zari Henry MD 05/30/2025 Telephone Adult Medicine [address] [phone] Zari Henry MD 05/30/2025 Telephone Adult Medicine [address] [phone] Zari Henry MD 05/30/2025 Telephone Adult Medicine [address] [phone] Zari Henry MD 05/22/2025 Telephone Adult Medicine [address] [phone] John Pulido LPN from Last 3 Months Immunizations Immunization Administration Dates Next Due Influenza Quadravalent, MDCK [...] (diabetes mellitus), type 2 with renal complications ([facility] V24, [facility] V28) 01/31/2017 Microalbuminuria 04/14/2017 Polycythemia 06/04/2018 Condyloma acuminata 11/18/2020 Condyloma ac uminata 11/19 penis YARELIS (obstructive sleep apnea) 05/09/2022 CHF (congestive heart failur e) ([facility] V24, [facility] V28) 01/06/2023 DM (diabetes mellitus), type 2 with peripheral vascular complications ([facility] V24, [facility] V28) 12/05/2024 Family History [...] 2:30 PM EDT Office Visit Adult Medicine [address] [phone] Zari Henry MD [address] [place] [address] 08/25/2025 2:30 PM EDT Office Visit Adult Medicine [address] [phone] Nadege Begum PA [address] [place], [place] 09/03/2025 2:00 PM EST Consult Orthopedic Surgery - [place] [address] [phone] Rivas Norman, VITALY [address] [address] 09/08/2025 2:15 PM EST Office Visit Pulmonology - [place] 175 [facility] [address] [place] [phone] Nisa Machado MD 175 [facility] [address] [place] [address] 09/29/2025 3:30 PM EST Consult Vascular Surgery - [place] [address] [place] [address] Enedina Westbrook PA [address] [place] [phone] Health Maintenance Due Date Last Done Comments Colorectal Cancer Screening: Colonoscopy 1974 Diabetes: Annual Foot Exam 1984 Diabetes: Annual Retina Eye Exam 1984 Hepatitis B Vaccines (1 of 3 - 19+ 3-dose series) 1993 Pneumococcal Vaccine: 50+ Years (2 of 2 - PPSV23, PCV20, or PCV21) 12/03/2019 10/08/2019 Cholesterol Screening (Lipid Panel) 10/07/2022 HIV Screening 10/07/2022 Hepatitis C Screening [...] LAB CHEMISTRY METHOD 02/07/2025 11:06 AM [facility] Mean Bld Glu Estim. 186 mg/dL LAB CHEMISTRY METHOD 02/07/2025 11:06 AM [facility] Blood Venous blood specimen / Unknown Venipuncture / Unknown 02/06/2025 2:04 PM EDT 02/06/2025 2:04 PM EDT us Zari Henry MD LAB BLOOD ORDERABLES Final Resul t [facility] [address] [place] [address], [place] [phone] * (ABNORMAL) Basic metabolic panel (02/06/2025 2:04 PM EDT) Sodium 136 133 - 145 mmol/L LAB CHEMISTRY METHOD 02/06/2025 5:07 PM [facility] Potassium 4.2 3.5 - 5.5 mmol/L LAB CHEMISTRY METHOD 02/06/2025 5:07 PM [facility] Chloride 99 96 - 110 mmol/L LAB CHEMISTRY METHOD 02/06/2025 5:07 PM [facility] CO2 28 21 - 32 mmol/L LAB CHEMISTRY METHOD 02/06/2025 5:07 PM [facility] Anion Gap 9 3 - 11 LAB CHEMISTRY METHOD 02/06/2025 5:07 PM [facility] Glucose 317(H) 70 - 100 mg/dL LAB CHEMISTRY METHOD 02/06/2025 5:07 PM [facility] BUN 25 5 - 25 mg/dL LAB CHEMISTRY METHOD 02/06/2025 5:07 PM [facility] Creatinine 1.91(H) 0.70 - 1.30 mg/dL LAB CHEMISTRY METHOD 02/06/2025 5:07 PM [facility] eGFR 42(L) >=60 mL/min/1. 73m2 LAB CHEMISTRY METHOD 02/06/2025 5:07 PM EDT [facility] Comment:Calculation based on the Chronic Kidney Disease Epidemiology Collaboration (CKD-EPI) equation refit without adjustment for race. BUN/Creatinine Ratio 13.1 LAB CHEMISTRY METHOD 02/06/2025 5:07 PM EDT [facility] Calcium 9.5 8.5 - 10.5 mg/dL LAB CHEMISTRY METHOD 02/06/2025 5:07 PM EDT [facility] Blood Venous blood specimen / Unknown Venipuncture / Unknown 02/06/2025 2:04 PM EDT 02/06/2025 2:04 PM EDT us Zari Henry MD LAB BLOOD ORDERABLES Final Resul t [facility] [address] [place] [address], from Last 3 Months or Most Recently Relevant to Health Maintenance Insurance [id number] [place] [address] [employer] Care Teams Shot Blast Equipment Operator Relationship Specialty Start Date End Date Zari Henry MD [address] [place] [address] PCP - General Internal Medicine 08/17/21
--- OUTSIDE RECORDS SUMMARY | 2025-07-30 23:59 | XMS_ITS | Clinical Summary ---
Author Organization [facility] Address [address] [facility] [address] [place] [address] Phone Care Team Providers Care Record Tabulating Clerk Name Role Phone Zari Henry MD Primary Care Provider [phone] Allergies Active Allergy Reactions Criticality Noted Date [...] 12/11/19 26 Active ergocalciferol (Drisdol) 1.25 MG (88719 UT) capsule Take 1 capsule (50,000 Units [...] Office Visit [facility] [address] [phone] Jong Hall MD Stage 3 chronic kidney [...] Visit [facility] [address] [phone] Jong Hall MD [address] [phone] Health Maintenance Due Date Last Done Comments [...] Creatinine, Ur 378.0 Not Estab. mg/dL [facility] Albumin, Urine 1,229.7 Not Estab. ug/mL [facility] Comment: Results confirmed on dilution. Albumin/Creatin ine Ratio 325(H) 0 - 29 mg/g creat [facility] Comment: Normal: 0 - 29 Moderately increased: 30 - 300 Severely increased: >300 05/20/2025 11:2 1 AM EDT 05/20/2025 us Jong Hall MD LAB URINE ORDERABLES Final Resul t Performing Organization Address [facility] Co de Phone Number [facility]NOW [facility] [place] [facility] [address] [place] [address] * (ABNORMAL) Vitamin D 25 Hydroxy (05/20/2025 11:21 AM EDT) Vitamin D, 25-OH, Total 10.8(L) 30.0 - 100.0 ng/mL [facility] [place] [facility] Comment: Vitamin D deficiency has been defined by the [place] [employer] and an Endocrine Society practice guideline as a level of serum 25-OH vitamin D less than 20 ng/mL (1,2). The Endocrine Society went on to further define vitamin D insufficiency as a level between 21 and 29 ng/mL (2). 1. IOM ([place] [employer]). 2010. Dietary reference intakes for calcium and D. Law [place]: The National Academies Press. 2. Rochelle MF, Vickie JAMES, Ramses DOYLE, et al. Evaluation, treatment, and prevention of vitamin D deficiency: an Endocrine Society clinical practice guideline. JCEM. 2010; 96(7):1911-30. 05/20/2025 11:2 1 AM EDT 05/20/2025 us Jong Hall MD LAB BLOOD ORDERABLES Final Resul t Performing Organization Address [facility] Co de Phone Number [facility] [place] [facility] [address] [place] [address] * PTH, Intact (05/20/2025 11:21 AM EDT) PTH 43 15 - 65 pg/mL [facility] [place] [facility] 05/20/2025 11:2 1 AM EDT 05/20/2025 us Jong Hall MD LAB BLOOD ORDERABLES Final Resul t Performing Organization Address [facility] Co de Phone Number [email or web address] [facility] [address] [place] [address] * (ABNORMAL) Renal Function Panel (05/20/2025 11:21 AM EDT) Glucose 150(H) 70 - 99 mg/dL [facility] BUN 18 6 - 24 mg/dL [facility] Creatinine 1.71(H) 0.76 - 1.27 mg/dL [facility] eGFR CKD-EPI CR 2020 48(L) >59 mL/min/1.7 3 [facility] BUN/Creatinine Ratio 11 9 - 20 [facility] Sodium 139 134 - 144 mmol/L [facility] Potassium 4.2 3.5 - 5.2 mmol/L [facility] Chloride 104 96 - 106 mmol/L [facility] Bicarbonate (CO2) 18(L) 20 - 29 mmol/L [facility] Calcium 8.9 8.7 - 10.2 mg/dL [facility] Albumin 3.9(L) 4.1 - 5.1 g/dL [facility] Phosphorus 2.4(L) 2.8 - 4.1 mg/dL [facility] 05/20/2025 11:2 1 AM EDT 05/20/2025 Jong Hall MD LAB BLOOD ORDERABLES Final Resul t [email or web address] [address] [place] [address] from Last [id number] [place] [id number] [facility] Medicaid [address] [place] [id number] Care Teams Record Tabulating Clerk Relationship Specialty Start Date End Date Zari Henry MD [address] [place] [address] PCP - General Internal Medicine 12/09/24
--- OUTSIDE RECORDS SUMMARY | 2025-07-30 23:59 | XMS_ITS | Encounter Summary ---
Author Organization [facility] Address [address] [place] [address] Care Team Providers Care Landscape Artist Name Role Phone Zari Henry MD Primary Care Provider Encounter Details Date Type Department Care Team (Late st Contact Info) Description 04/10/2025 Billing Patient Not Present Adult Medicine [address] [phone] Zari Henry MD [address] [place], [place] Social History Tobacco Use Types Packs/Day [...] 2:30 PM EDT Office Visit Adult Medicine [address] [phone] Zrai Henry MD [address] [place], [place] 08/25/2025 2:30 PM EDT Office Visit Adult Medicine [facility] [address] [place], [place] [phone] Nadege Begum PA [address] [place], [place] 09/03/2025 2:00 PM EST Consult Orthopedic Surgery - [place] 250 [address] [facility] [address] [place] [phone] Rivas Norman, DPM [address] [address] 09/08/2025 2:15 PM EST Office Visit Pulmonology - [place] 175 [facility] [address] [place] [address] Nisa Machado MD [address] [address] 09/29/2025 3:30 PM EST Consult Vascular Surgery - [place] 300 [facility] [address] [place] [address] Enedina Westbrook PA [address] [place] [phone] documented as of this encounter Visit Diagnoses Not on filedocumented in this encounter Care Teams Landscape Artist Relationship Specialty Start Date End Date Zari Henry MD [address] [place] [address] PCP - General Internal Medicine 08/17/21 documented as of this encounter
--- OUTSIDE RECORDS SUMMARY | 2025-07-30 23:59 | XMS_ITS | Encounter Summary ---
Author Organization [facility] Address [address] [place] [address] Care Team Providers Care [employer] Executive Director Name Role Phone Zari Henry MD Primary Care Provider Encounter Details Date Type Department Care Team (Late st Contact Info) Description 01/09/2025 Billing Patient Not Present Adult Medicine [address] [phone] Zari Henry MD [address] [place], [place] Social History Tobacco Use Types Packs/Day [...] 2:30 PM EDT Office Visit Adult Medicine [address] [phone] Zari Henry MD [address] [place], [place] 08/25/2025 2:30 PM EDT Office Visit Adult Medicine [facility] 444 [place], [place] [phone] Nadege Begum PA [address] [place], [place] 09/03/2025 2:00 PM EST Consult Orthopedic Surgery - [place] 250 175 [facility] 250 [place] [phone] Rivas Norman, DPM [address] [address] 09/08/2025 2:15 PM EST Office Visit Pulmonology - [place] 175 [facility] 200 [place] [address] Nisa Machado MD [address] [address] 09/29/2025 3:30 PM EST Consult Vascular Surgery - [place] 300 [facility] 210 [place] [address] Enedina Westbrook PA [address] [place] [phone] documented as of this encounter Visit Diagnoses Not on filedocumented in this encounter Care Teams [employer] Executive Director Relationship Specialty Start Date End Date Zari Henry MD [address] [place] [address] PCP - General Internal Medicine 08/17/21 documented as of this encounter
--- OUTSIDE RECORDS SUMMARY | 2025-07-30 23:59 | XMS_ITS | Clinical Summary ---
Author Organization [facility] Address [address] [place] [address] Care Team Providers Care Wholesaler Name Role Phone Zari Henry MD Primary Care Provider [phone] Allergies Active Allergy Reactions Criticality Noted Date [...] age to complete this topic Care Teams Wholesaler Relationship Specialty Start Date End Date Zari Henry MD PCP - General Internal Medicine 01/21/22
--- OUTSIDE RECORDS SUMMARY | 2025-07-30 23:59 | XMS_ITS | Encounter Summary ---
Author Organization [facility] Address [address] [place] [address] Care Team Providers Care Install Technician Name Role Phone Zari Henry MD Primary Care Provider Encounter Details Date Type Department Care Team (Late st Contact Info) Description 02/14/2025 Billing Patient Not Present Adult Medicine [address] [phone] Zari Henry MD [address] [place], [place] Social History Tobacco Use Types Packs/Day [...] PM EDT Office Visit Adult Medicine [address] [phone] Zari Henry MD [address] [place], [place] 08/25/2025 2:30 PM EDT Office Visit Adult Medicine [facility] 444 [place], [place] [phone] Nadege Begum PA [address] [place], [place] 09/03/2025 2:00 PM EST Consult Orthopedic Surgery - [place] 250 175 [facility] 250 [place] [phone] Rivas Norman, DPM [address] [address] 09/08/2025 2:15 PM EST Office Visit Pulmonology - [place] 175 [facility] 200 [place] [address] Nisa Machado MD [address] [address] 09/29/2025 3:30 PM EST Consult Vascular Surgery - [place] 300 [facility] [address] [place] [address] Enedina Westbrook PA [address] [place] [phone] documented as of this encounter Visit Diagnoses Not on filedocumented in this encounter Care Teams Install Technician Relationship Specialty Start Date End Date Zari Henry MD [address] [place] [address] PCP - General Internal Medicine 08/17/21 documented as of this encounter
--- OUTSIDE RECORDS SUMMARY | 2025-07-30 23:59 | XMS_ITS | Encounter Summary ---
Author Organization [facility] Address [address] [place] [address] Care Team Providers Care Licensed Pharmacist Name Role Phone Zari Henry MD Primary Care Provider Encounter Details Date Type Department Care Team (Late st Contact Info) Description 01/30/2025 Billing Patient Not Present Adult Medicine [address] [phone] Zari Henry MD [address] [place], [place] Social History Tobacco Use Types Packs/Day [...] 2:30 PM EDT Office Visit Adult Medicine [address] [phone] Zari Henry MD [address] [place], [place] 08/25/2025 2:30 PM EDT Office Visit Adult Medicine [facility] 444 [place], [place] [phone] Nadege Begum PA [address] [place], [place] 09/03/2025 2:00 PM EST Consult Orthopedic Surgery - [place] 250 175 [facility] [address] [place] [phone] Rivas Norman, DPM [address] [address] 09/08/2025 2:15 PM EST Office Visit Pulmonology - [place] 175 [facility] 200 [place] [address] iNsa Machado MD [address] [address] 09/29/2025 3:30 PM EST Consult Vascular Surgery - [place] [address] [facility] [address] [place] [address] Enedina Westbrook PA [address] [place] [phone] documented as of this encounter Visit Diagnoses Not on filedocumented in this encounter Care Teams Licensed Pharmacist Relationship Specialty Start Date End Date Zari Henry MD [address] [place] [address] PCP - General Internal Medicine 08/17/21 documented as of this encounter
[2025-07-31] VITALS (10 sets, daily range): BP systolic 109–189; BP diastolic 54–91; PULSE 70–104; RESP 14–20; TEMP 36.7–37.4; O2SAT 92–100
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
--- NOTE | 2025-07-31 00:23 | PC.NURSE ---
Addendum entered by Zeny Barger RN 07/31/25 01:13: Delay in fluid infusion d/t to pt being a hard stick- waiting for another RN to assist. Addendum entered by Zeny Barger RN 07/31/25 01:12: RN spoke to charge who stated pt cannot have any of his belongings including phone- RN explain this to pt- pt took off his insulin pump. RN [facility] pts [facility] Original Note: pt came in via ems d/t depression and drinking 1 L of vodka for x 1 week and barely eating. pt stated to RN he is currently SI no HI. He stated he has a plan to OD on his bed time pills . Pt was changed over. He has his cell phone on him as he is a diabetic and he has a DM sensor and insulin pump. Pt has a hx of copd and was stating in the upper 80s- he was placed on 2L NC. Pt has a 1:1 sitter. Will medicate per DEC.
[2025-07-31] MEDS: Albuterol Sulfate 2.5 MG, Albuterol/Iprat 2.5/0.5MG 3 ML 3 ML INHALE (00:30)
[2025-07-31 00:54] LABS: Appearance Urine Clear; Glucose Urine UA Negative (Negative); PH 5.0 (5.0-9.0); Specific Gravity - Urine 1.010 (1.005-1.025); UMIC TRIGGER UACC YES
[2025-07-31 01:54] LABS: MANUAL DIFF FLAG NO
[2025-07-31 02:02] LABS: Hematocrit 33.4 % (42.0-52.0); Hemoglobin 11.5 g/dl (14.0-18.0); Imm Gran Abs Auto 0.04 X10*3/uL (0.00-0.03); Imm Gran Pct Auto 0.4 % (0.0-0.4); Lymphocytes Absolute Auto 1.8 X10*3/uL (1.2-4.9); Mean Corpuscular HGB Conc 34.4 g/dl (31.0-36.0); Mean Corpuscular Hemoglobin 29.8 pg (27.0-33.0); Mean Corpuscular Volume 86.5 fL (80.0-98.0); NRBC Abs Auto 0.000 X10*3/uL (0.0-0.012); NRBC Pct Auto 0.0 /100WBC (0.0-0.2); Platelet Count 368 X10*3/uL (160-400); Red Blood Count 3.86 X10*6/uL (4.60-5.80); White Blood Count 10.3 X10*3/uL (4.8-10.8)
[2025-07-31 02:14] LABS: Alanine Aminotransferase 28 U/L (0-40); Albumin Level 3.5 g/dL (3.5-5.0); Alkaline Phosphatase 155 U/L (39-117); Anion Gap 20 (12-20); Aspartate Amino Transferase 57 U/L (5-37); Blood Urea Nitrogen 16 mg/dL (9-16); Calcium 8.2 mg/dL (8.4-10.2); Carbon Dioxide 24 mmol/L (22-29); Chloride 105 mmol/L (96-108); Creatinine Clr Calc Pharmacy 63.3; Estimated Glomerular Filt Rate > 60; Potassium 3.8 mmol/L (3.3-5.1); Sodium 145 mmol/L (135-145); Total Protein 6.9 g/dL (6.5-8.0)
[2025-07-31] MEDS: Lactated Ringers 1,000 ML 999 ML IV (02:33)
[2025-07-31 04:29] LABS: Glucose, Whole Blood 88 mg/dL (60-115)
[2025-07-31 07:33] LABS: Glucose, Whole Blood 137 mg/dL (60-115)
--- NOTE | 2025-07-31 07:56 | PC.NURSE ---
patient awake and eating breakfast. denies si/hi, states that he is interested in detox as I can't keep living like this . states he wears oxygen when he is laying down, oxygen on room air while laying was 93%. currently awaiting care team/recovery team for dispo.
[2025-07-31] MEDS: Metoprolol Succinate ER 100 MG TAB.ER.24H PO (09:44)
[2025-07-31] MEDS: Nicotine 21 MG PATCH.TD24 TRANSDERMA (09:44)
--- NOTE | 2025-07-31 09:52 | MHC.CARE ---
Pt will be an inpatient bedsearch.
--- NOTE | 2025-07-31 11:13 | ECG_ITS ---
Test Reason : MED CLEARAMCE Blood Pressure : */* mmHG Vent. Rate : 97 BPM Atrial Rate : 97 BPM P-R Int : 130 ms QRS Dur : 72 ms QT Int : 338 ms P-R-T Axes : 64 59 60 degrees QTcB Int : 429 ms Normal sinus rhythm Normal ECG When compared with ECG of 18-Jul-2025 15:44, No significant change was found Referred By: Evangelina Pinto Electronically Signed By: JESSICA LY
[2025-07-31 11:37] LABS: Cannabinoid Screen Urine POSITIVE (Not Detect)
[2025-07-31 11:57] LABS: Glucose, Whole Blood 229 mg/dL (60-115)
--- NOTE | 2025-07-31 12:59 | HO.PM.IMCN ---
History of Present Illness Data of Consult Service Date: 07/31/25 Primary Care Provider: Zari Henry MD [facility] Reason for consult: Medical consult 50-year-old male with a past medical history of major depressive disorder, alcohol use disorder, hypertension. Congestive heart failure with preserved EF, YARELIS, peripheral artery disease, insulin-dependent diabetes. Chronic kidney disease stage 1, anemia, hyperlipidemia and asthma presented to the ED with acute alcohol intoxication and increased depression. Lab work this demonstrated no leukocytosis, mild anemia, electrolytes within normal limits, urine without evidence of infection. He is medically cleared admission to [facility] for further treatment. On exam he is reporting pain in bilateral legs. Bilateral legs are red and warm. He does have a history of PVD. Reports that his legs are very painful. Patient with a history of YARELIS, wears CPAP at night. Patient has been strictly using insulin pump which was removed. We will continue with insulin sliding scale for now and monitor blood sugars. Patient reports that he only uses his short-acting insulin has not been on Lantus before. He reports his breathing is at its baseline, denies any chest pain. Review of Systems Review of Systems: Denies any shortness of breath, chest pain, palpitations, dizziness, lightheadedness, headaches, dysuria, abdominal pain or discomfort, nausea, vomiting or diarrhea. Denies Chills, body aches, muscle aches, fatigue or weight loss. [facility] Medical History (Updated 07/31/25 @ 16:06 by Kalli Guzmán DNP) MDD (major depressive disorder), recurrent episode, moderate Tobacco use CKD (chronic kidney disease) stage 1, GFR 90 ml/min or greater YARELIS (obstructive sleep apnea) Acute on chronic diastolic (congestive) heart failure KELVIN (acute kidney injury) Chronic heart failure with preserved ejection fraction (HFpEF) Depression Acute on chronic anemia Anxiety HLD (hyperlipidemia) Diabetes HTN (hypertension) Asthma PAD (peripheral artery disease) Family History Father Alzheimer disease CAD (coronary artery disease) Surgical History History of esophagogastroduodenoscopy S/P angiogram of extremity Social History Household Members: Friend(s) Household Members Other:: 4 Housing: Apartment Do you presently have visiting nurse or other home services: No Alcohol intake: current Alcohol intake frequency: 3 or more drinks per day Alcohol type: hard liquor Comment: refuses high fall risk Patient Tobacco Use Status: Never used Tobacco Tobacco use type: Cigarette Cigarette Packs Per Day: 1 Cigarettes Per Day: 10 Years Smoked: 33 years Smoked in Last 30 Days: Yes e-Cigarette/Vaping Use: Currently Using Second Hand Smoke Exposure: No Use of substances other than those prescribed or required for medical reasons: Yes Substance Use Type: Marijuana Advance Directives: Yes Advance Directives Information Provided: Yes Advance Directives on File: No Advance Directives Date on File: 06/21/21 Do you have a plan to hurt others: No Plan service: No Current occupational status: disabled Meds Allergies Allergy/AdvReac Type Severity Reaction Status Date / Time dulaglutide (From [facility]) Allergy Unknown Verified 07/30/25 23:17 metformin (METFORMIN) AdvReac Mild DIARRHEA, Verified 07/30/25 23:17 nausea and vomiting Active Medications: Current Medications Acetaminophen (Acetaminophen 325 Mg Tablet) 650 mg PO Q6H PRN PRN Reason: Headache/Pain, Scale 1-10 Al Hydroxide/Mg Hydroxide (Magnesium Hydrox/Alum Hydrox 30 Ml Oral.Susp) 30 ml PO Q6H PRN PRN Reason: Heartburn/Nausea Amlodipine Besylate (Amlodipine Besylate 10 Mg Tablet) 10 mg PO DAILY [facility]; Protocol Last Admin: 07/31/25 09:45 Dose: 10 mg Hydralazine HCl (Hydralazine Hcl 50 Mg Tablet) 100 mg PO TID [facility]; Protocol Last Admin: 07/31/25 09:44 Dose: 100 mg Hydroxyzine HCl (Hydroxyzine Hcl 25 Mg Tablet) 25 mg PO Q6H PRN PRN Reason: mild anxiety Last Admin: 07/31/25 12:08 Dose: 25 mg Losartan Potassium (Losartan Potassium 25 Mg Tablet) 25 mg PO DAILY [facility]; Protocol Last Admin: 07/31/25 09:45 Dose: 25 mg Magnesium Hydroxide (Milk Of Magnesia 30 Ml Oral.Susp) 30 ml PO DAILY PRN PRN Reason: Constipation Magnesium Oxide (Magnesium Oxide 400 Mg Tablet) 400 mg PO DAILY [facility] Last Admin: 07/31/25 09:44 Dose: 400 mg Metoprolol Succinate (Metoprolol Succinate Er 100 Mg Tab.Er.24h) 100 mg PO DAILY [facility]; Protocol Last Admin: 07/31/25 09:44 Dose: 100 mg Nicotine Polacrilex (Nicotine Polacrilex 2 Mg Gum) 4 mg BUCCAL Q2H PRN PRN Reason: Nicotine Cravings Last Admin: 07/31/25 12:12 Dose: 4 mg Trazodone HCl (Trazodone Hcl 50 Mg Tablet) 50 mg PO BEDTIME MRX1 PRN PRN Reason: Insomnia Home Medications ?Medication ?Instructions ?Recorded ?Confirmed ?Last Taken ?Type trazodone 50 mg tablet 100 mg PO BEDTIME 08/01/22 07/31/25 07/18/25 History aspirin 81 mg tablet,delayed 81 mg PO DAILY 10/06/22 07/31/25 07/28/25 History release atorvastatin 40 mg tablet 40 mg PO DAILY 10/06/22 07/31/25 07/28/25 History metoprolol succinate 100 mg 100 mg PO DAILY 10/06/22 07/31/25 07/28/25 History tablet,extended release 24 hr amlodipine 5 mg tablet 10 mg PO DAILY 06/02/24 07/31/25 07/28/25 History omeprazole 40 mg capsule,delayed 40 mg PO DAILY@0630 07/15/24 07/31/25 07/28/25 History release insulin lispro 100 unit/mL 100 unit subcut DIRECTED 11/19/24 07/31/25 07/18/25 History subcutaneous solution sucralfate 1 gram tablet 1 g PO QID 01/14/25 07/31/25 07/28/25 History torsemide 20 mg tablet 40 mg PO BEDTIME 05/28/25 07/31/25 07/18/25 History torsemide 20 mg tablet 60 mg PO DAILY 05/28/25 07/31/25 07/28/25 History albuterol sulfate 2.5 mg/3 mL 2.5 mg inhalation Q6H PRN wheezing 06/13/25 07/31/25 07/18/25 History (0.083 %) solution for nebulization losartan 25 mg tablet 25 mg PO DAILY 06/13/25 07/31/25 07/28/25 History magnesium oxide 400 mg (241.3 mg 400 mg PO DAILY 06/13/25 07/31/25 07/28/25 History magnesium) tablet nicotine 21 mg/24 hr daily 21 mg transdermal DAILY PRN 06/13/25 07/31/25 07/18/25 History transdermal patch Smoking Cessation escitalopram oxalate 20 mg tablet 20 mg PO DAILY 07/01/25 07/31/25 07/28/25 History gabapentin 300 mg capsule 300 mg PO TID 07/01/25 07/31/25 07/28/25 History ecmqvcma-rlktkahg-tuppr acid 400 1 tab PO DAILY 07/01/25 07/31/25 07/28/25 History mcg-vit K 20 mcg-lycop 300 mcg tablet (One-A-Day Men's Multivitamin) Physical Exam Vital Signs and Narrative: Vital Signs: Last Vital Signs Temp 98.9 F 07/31/25 07:06 Pulse 95 07/31/25 12:26 Resp 18 07/31/25 07:06 BP 180/86 H 07/31/25 12:26 Pulse Ox 93 07/31/25 07:06 O2 Del Method Nasal Cannula 07/31/25 07:06 O2 Flow Rate 2 07/31/25 07:06 BMI result Body Mass Index 21.6 CONST: Alert and oriented, in NAD. Well nourished HEENT: Normocephalic, atraumatic, MMM, Eyes clear, Neck supple RESP: Lungs clear, RRR even and regular HEART:,RRR, S1, S2. Bilateral lower extremities red, warm and painful to touch. GI:Abdomen Soft NT, ND. + BS times four :Deferred SKIN: Warm dry and intact, no visible lesions or rashes NEURO:CN II-XII Intact bilaterally, Sensation intact. Speech clear PSYCH: Normal affect Results Labs 07/31/25 01:37 07/31/25 01:37 Labs: Laboratory Results - last 24 hr 07/31/25 07/31/25 07/31/25 00:10 01:37 04:24 MCV 86.5 MCH 29.8 MCHC 34.4 RDW 17.4 H Plt Count 368 MPV 9.0 L Immature Gran % (Auto) 0.4 Neut % (Auto) 72.5 Lymph % (Auto) 17.2 L [place] % (Auto) 8.4 Eos % (Auto) 0.6 Baso % (Auto) 0.9 Lymph # (Auto) 1.8 [place] # (Auto) 0.9 Eos # (Auto) 0.1 Baso # (Auto) 0.1 Abs Immat Gran (auto) 0.04 H Absolute Neuts (auto) 7.5 Absolute Nucleated RBC 0.000 Nucleated RBC % (auto) 0.0 Anion Gap 20 Estim Creat Clear Calc 63.3 Estimated GFR > 60 POC Glucose 88 Random Glucose 111 Calcium 8.2 L Total Bilirubin 0.1 AST 57 H ALT 28 Alkaline Phosphatase 155 H Total Protein 6.9 Albumin 3.5 Urine Color Yellow Urine Appearance Clear Urine pH 5.0 Ur Specific [place] 1.010 Urine Protein 100 (2+) H Urine Glucose (UA) Negative Urine Ketones Negative Urine Blood Negative Urine Nitrite Negative Ur Leukocyte Esterase Negative Urine RBC 0-2 Urine WBC 0-5 Ur Squamous Epith Cells 0-2 Urine Bacteria None Seen Hyaline Casts 3-5 Urine Opiates Screen Not Detected Ur Buprenorphine Scrn Not Detected Ur Oxycodone Screen Not Detected Urine Methadone Screen Not Detected Urine Fentanyl Screen Not Detected Ur Barbiturates Screen POSITIVE H Ur Phencyclidine Scrn Not Detected Ur Amphetamines Screen Not Detected U Benzodiazepines Scrn Not Detected Urine Cocaine Screen Not Detected U Marijuana (THC) Screen POSITIVE H Ethyl Alcohol 288 07/31/25 07/31/25 07:29 11:54 MCV MCH MCHC RDW Plt Count MPV Immature Gran % (Auto) Neut % (Auto) Lymph % (Auto) [place] % (Auto) Eos % (Auto) Baso % (Auto) Lymph # (Auto) [place] # (Auto) Eos # (Auto) Baso # (Auto) Abs Immat Gran (auto) Absolute Neuts (auto) Absolute Nucleated RBC Nucleated RBC % (auto) Anion Gap Estim Creat Clear Calc Estimated GFR POC Glucose 137 H 229 H Random Glucose Calcium Total Bilirubin AST ALT Alkaline Phosphatase Total Protein Albumin Urine Color Urine Appearance Urine pH Ur Specific [place] Urine Protein Urine Glucose (UA) Urine Ketones Urine Blood Urine Nitrite Ur Leukocyte Esterase Urine RBC Urine WBC Ur Squamous Epith Cells Urine Bacteria Hyaline Casts Urine Opiates Screen Ur Buprenorphine Scrn Ur Oxycodone Screen Urine Methadone Screen Urine Fentanyl Screen Ur Barbiturates Screen Ur Phencyclidine Scrn Ur Amphetamines Screen U Benzodiazepines Scrn Urine Cocaine Screen U Marijuana (THC) Screen Ethyl Alcohol Assessment and Plan (1) Lower extremity cellulitis: Status: Acute Plan 50-year-old male with a past medical history of major depressive disorder, alcohol use disorder, hypertension. YARELIS on nocturnal O2, Congestive heart failure with preserved EF, YARELIS, peripheral artery disease, insulin-dependent diabetes. Chronic kidney disease stage 1, anemia, hyperlipidemia and asthma presented to the ED with increased depression and alcohol intoxication. MDD/alcohol use disorder Treatment per psychiatric team Hypertension Continue Norvasc and hydralazine and losartan. Congestive heart failure with preserved EF Continue torsemide b.i.d. Appears euvolemic on exam Followed by cardiology. Per last cardiology note patient needs further follow up ischemic workup. YARELIS Does not tolerate CPAP, wears O2 at night GERD Continue Prilosec and Carafate Insulin-dependent type 2 diabetes Patient reports he does not use Lantus, only uses the insulin pump. Follows with [facility] endocrinology PVD/question cellulitis Bilateral legs are warm, painful We will treat with course of Keflex Encouraged leg elevation, Cristian stockings Chronic kidney disease stage 3 Avoid nephrotoxins Anemia Continue iron Hemoglobin stable Thank you for allowing me to participate in the care of this patient. Will follow as needed, please notify medical provider with any changes in condition or concerns.
[2025-07-31 16:59] LABS: Glucose, Whole Blood 175 mg/dL (60-115)
--- NOTE | 2025-07-31 17:16 | PC.NURSE ---
Addendum entered by Corrine Rey RN 07/31/25 17:30: Orders placed, patient declined dinner, next dose for Lispro (per sliding scale) ordered for 2100 Original Note: Patient met with the hospitalist this evening regarding a medical work up. He has an insulin pump that he uses at home, but was informed after meeting with the Hospitalist that a sliding scale would be ordered. At 16:38 Kalli Guzmán was messaged via Sift texts regarding orders needed for his sliding scale. Orders were not placed, called Provider Delores Springer shortly after to ask for orders to be placed. Per provider this needed to be done by the hospitalist. Kalli was messaged again at 16:49 with no orders placed. Hospitalist Dr. Ocasio notified via tiger text at 17:09 of the situation and the request for orders to be placed. POC this evening prior to dinner was 175. No orders for insulin placed at this time.
--- NOTE | 2025-07-31 17:48 | PC.ADMIT ---
Patient was admitted at 1425 from the POD on a CV for tx of MDD, Anxiety Disorder Unspecified and Alcohol Use Disorder. Patient arrived to the ED initially with alcohol intoxication, depression and SI with a plan to OD on his meds. Patient reported drinking approximately 1 liter of Vodka daily, passing out and then proceeding to drink more once he wakes up. In the ED, pt reported AH and VH of people . Patient has a medical hx of COPD, HTN, CHF and T2D. Utilizes an insulin pump at home (hospitalist placed orders for a sliding scale and POC while here inpatient). During skin check, redness and warmth noted in BL legs along with reports of increased pain. With hx of PVD, orders placed by hospitalist for pt to start on abx. Upon admission assessment, patient is pleasant and cooperative with linear and organized thought process. He reports increased feelings of anxiety and elevated BP upon admission (185/91 manual) and given meds. Patient was also started on a CIWA, and received 1mg of Ativan this evening for scoring an 8. Reports drinking just prior to admission (BAL 288). States This is why I came in, the drinking is getting out of control . Reports struggling with feelings of depression, with a most recent stressor r/t a breakup with his girlfriend of 10+ years. He denies any current AVH, along with any SI, plan or intent. Reports a hx of trauma but declined to disclose. Patient on 15 minute checks, placed as a high fall risk d/t current alcohol withdrawal.
[2025-07-31 20:25] LABS: Glucose, Whole Blood 151 mg/dL (60-115)
[2025-08-01 07:00] VITALS: BP 193/89; PULSE 74; RESP 18; TEMP 36.7; O2SAT 99
[2025-08-01 07:34] LABS: Glucose, Whole Blood 291 mg/dL (60-115)
--- NOTE | 2025-08-01 08:15 | HO.PM.IMPN ---
Subjective Subjective Date of Service: 08/01/25 Interval History: Follow up cellulitis and leg pain. Patient reports that his legs are less swollen and painful. He has Cristian stockings on. Able to examine his legs without any pain. He denies any numbness or tingling. Denies any chest pain. Patient reports that he is taking gabapentin for his leg pain. No nausea vomiting or diarrhea. Review of Systems Denies any shortness of breath, chest pain, palpitations, dizziness, lightheadedness, headaches, dysuria, abdominal pain or discomfort, nausea, vomiting or diarrhea. Denies Chills, body aches, muscle aches, fatigue or weight loss. Physical Exam Vital Signs: Vital Signs: Last Vital Signs Temp 98.1 F 08/01/25 07:00 Pulse 74 08/01/25 07:00 Resp 18 08/01/25 07:00 BP 193/89 H 08/01/25 07:00 Pulse Ox 99 08/01/25 07:00 O2 Del Method Room Air 08/01/25 07:00 O2 Flow Rate 2 07/31/25 07:06 BMI result Body Mass Index 21.6 CONST: Alert and oriented, in NAD. Well nourished HEENT: Normocephalic, atraumatic, MMM, Eyes clear, Neck supple RESP: Lungs clear, RRR even and regular HEART:,RRR, S1, S2. Bilateral lower extremities mild redness, less warm and less painful to touch. GI:Abdomen Soft NT, ND. + BS times four :Deferred SKIN: Warm dry and intact, no visible lesions or rashes NEURO:CN II-XII Intact bilaterally, Sensation intact. Speech clear PSYCH: Normal affect Objective Data Active Medications Acetaminophen (Acetaminophen 325 Mg Tablet) 650 mg PO Q6H PRN PRN Reason: Headache/Pain, Scale 1-10 Al Hydroxide/Mg Hydroxide (Magnesium Hydrox/Alum Hydrox 30 Ml Oral.Susp) 30 ml PO Q6H PRN PRN Reason: Heartburn/Nausea Albuterol Sulfate (Albuterol Sulfate (0.083%) 2.5 Mg/3 Ml Vial.Neb) 2.5 mg INHALE Q6H PRN PRN Reason: Wheezing Amlodipine Besylate (Amlodipine Besylate 10 Mg Tablet) 10 mg PO DAILY [facility]; Protocol Last Admin: 07/31/25 09:45 Dose: 10 mg Documented By: RAUL Aspirin (Aspirin Enteric Coated 81 Mg Tablet.) 81 mg PO DAILY [facility] Atorvastatin Calcium (Atorvastatin Calcium 40 Mg Tablet) 40 mg PO DAILY [facility] Cephalexin HCl (Cephalexin 500 Mg Capsule) 500 mg PO Q6H [facility] Stop: 08/10/25 16:59 Last Admin: 08/01/25 04:32 Dose: 500 mg Documented By: NETTIE Dextrose (Dextrose 50 % 25 Gm/50 Ml Syringe) 25 gm IVPUSH Q15M PRN; Protocol PRN Reason: per Hypoglycemia Standing Ord. Escitalopram Oxalate (Escitalopram Oxalate 20 Mg Tablet) 20 mg PO DAILY [facility] Ferrous Sulfate (Ferrous Sulfate 324 Mg Tablet.) 324 mg PO DAILY [facility] Gabapentin (Gabapentin 300 Mg Capsule) 300 mg PO TID [facility] Last Admin: 07/31/25 20:26 Dose: 300 mg Documented By: NETTIE Glucose (Glucose Gel 15 Gm Gel..Gram.) 15 gm PO Q15M PRN; Protocol PRN Reason: per Hypoglycemia Standing Ord. Hydralazine HCl (Hydralazine Hcl 50 Mg Tablet) 100 mg PO TID [facility]; Protocol Last Admin: 07/31/25 20:26 Dose: 100 mg Documented By: NETTIE Hydroxyzine HCl (Hydroxyzine Hcl 25 Mg Tablet) 25 mg PO Q6H PRN PRN Reason: mild anxiety Last Admin: 07/31/25 12:08 Dose: 25 mg Documented By: WASSICL Insulin Human Lispro (Insulin Lispro 100 Unit/Ml 3 Ml Vial) 0 unit SUBCUT QIDACHS [facility]; Protocol Last Admin: 07/31/25 20:30 Dose: 2 unit Documented By: NETTIE Lorazepam (Lorazepam 1 Mg Tablet) 1 mg PO Q2H PRN PRN Reason: CIWA 8-11 Last Admin: 07/31/25 16:27 Dose: 1 mg Documented By: MAIRA Lorazepam (Lorazepam 1 Mg Tablet) 2 mg PO Q2H PRN PRN Reason: CIWA 12-15 Last Admin: 07/31/25 23:42 Dose: 2 mg Documented By: NETTIE Lorazepam (Lorazepam 1 Mg Tablet) 3 mg PO Q2H PRN PRN Reason: CIWA > 15, and call Losartan Potassium (Losartan Potassium 25 Mg Tablet) 25 mg PO DAILY [facility]; Protocol Last Admin: 07/31/25 09:45 Dose: 25 mg Documented By: RAUL Magnesium Hydroxide (Milk Of Magnesia 30 Ml Oral.Susp) 30 ml PO DAILY PRN PRN Reason: Constipation Magnesium Oxide (Magnesium Oxide 400 Mg Tablet) 400 mg PO DAILY [facility] Last Admin: 07/31/25 09:44 Dose: 400 mg Documented By: RAUL Metoprolol Succinate (Metoprolol Succinate Er 100 Mg Tab.Er.24h) 100 mg PO DAILY [facility]; Protocol Last Admin: 07/31/25 09:44 Dose: 100 mg Documented By: RAUL Naltrexone HCl (Naltrexone Hcl 50 Mg Tablet) 50 mg PO DAILY [facility] Nicotine (Nicotine 21 Mg Patch.Td24) 21 mg TRANSDERMA DAILY PRN PRN Reason: Smoking Cessation Nicotine Polacrilex (Nicotine Polacrilex 2 Mg Gum) 4 mg BUCCAL Q2H PRN PRN Reason: Nicotine Cravings Last Admin: 07/31/25 12:12 Dose: 4 mg Documented By: WASSICL Omeprazole (Omeprazole 40 Mg Capsule.Dr) 40 mg PO DAILY@0630 [facility] Last Admin: 08/01/25 06:47 Dose: 40 mg Documented By: NETTIE Sucralfate (Sucralfate 1 Gm Tablet) 1 gm PO QID [facility] Last Admin: 07/31/25 20:27 Dose: 1 gm Documented By: NETTIE Thiamine HCl (Thiamine Hcl 100 Mg Tablet) 100 mg PO DAILY [facility] Torsemide (Torsemide 20 Mg Tablet) 60 mg PO DAILY [facility]; Protocol Torsemide (Torsemide 20 Mg Tablet) 40 mg PO BEDTIME [facility]; Protocol Last Admin: 07/31/25 20:27 Dose: 40 mg Documented By: NETTIE Trazodone HCl (Trazodone Hcl 50 Mg Tablet) 50 mg PO BEDTIME MRX1 PRN PRN Reason: Insomnia Trazodone HCl (Trazodone Hcl 100 Mg Tablet) 100 mg PO BEDTIME [facility] Last Admin: 07/31/25 20:27 Dose: 100 mg Documented By: NETTIE Labs 07/31/25 01:37 07/31/25 01:37 Labs: Laboratory Results - last 24 hr 07/31/25 07/31/25 07/31/25 00:10 11:54 16:55 POC Glucose 229 H 175 H Urine Opiates Screen Not Detected Ur Buprenorphine Scrn Not Detected Ur Oxycodone Screen Not Detected Urine Methadone Screen Not Detected Urine Fentanyl Screen Not Detected Ur Barbiturates Screen POSITIVE H Ur Phencyclidine Scrn Not Detected Ur Amphetamines Screen Not Detected U Benzodiazepines Scrn Not Detected Urine Cocaine Screen Not Detected U Marijuana (THC) Screen POSITIVE H 07/31/25 08/01/25 20:14 07:27 POC Glucose 151 H 291 H Urine Opiates Screen Ur Buprenorphine Scrn Ur Oxycodone Screen Urine Methadone Screen Urine Fentanyl Screen Ur Barbiturates Screen Ur Phencyclidine Scrn Ur Amphetamines Screen U Benzodiazepines Scrn Urine Cocaine Screen U Marijuana (THC) Screen Assessment and Plan (1) Alcohol withdrawal seizure: Status: Resolved (2) PAD (peripheral artery disease): Status: Acute (3) Lower extremity cellulitis: Status: Acute Plan 50-year-old male with a past medical history of major depressive disorder, alcohol use disorder, hypertension. YARELIS on nocturnal O2, Congestive heart failure with preserved EF, YARELIS, peripheral artery disease, insulin-dependent diabetes. Chronic kidney disease stage 1, anemia, hyperlipidemia and asthma presented to the ED with increased depression and alcohol intoxication. MDD/alcohol use disorder Treatment per psychiatric team Hypertension Continue Norvasc and hydralazine and losartan. Losartan increased to 50 mg due to persistently elevated blood pressures Congestive heart failure with preserved EF Continue torsemide b.i.d. Appears euvolemic on exam Cardiology consult. Per last cardiology note patient needs further follow up ischemic workup. Lost to follow up YARELIS/COPD Does not tolerate CPAP, wears O2 at night. 2L at baseline Start Spiriva, albuterol as needed every 6 hours. GERD Continue Prilosec and Carafate Insulin-dependent type 2 diabetes Patient reports he does not use Lantus, only uses the insulin pump. Follows with [facility] endocrinology Blood sugar ranging 137-291. PVD/question cellulitis Bilateral legs are warm, less painful today Continue cephalexin Encouraged leg elevation, Cristian stockings Chronic kidney disease stage 3 Avoid nephrotoxins Anemia Continue iron Hemoglobin stable Thank you for allowing me to participate in the care of this patient. Will follow as needed, please notify medical provider with any changes in condition or concerns. Quality Stroke Does the patient have a stroke diagnosis?: No VTE Prior VTE?: No VTE Risk Level:: Medical - low VTE Device Contraindication: Treatment Not Indicated VTE Drug Contraindication: Treatment Not Indicated
[2025-08-01 08:18] VITALS: BP 193/89
[2025-08-01] MEDS: Aspirin Enteric Coated 81 MG TABLET.DR PO (08:18)
[2025-08-01] MEDS: Ferrous Sulfate 324 MG TABLET.DR PO (08:19)
[2025-08-01 08:20] VITALS: BP 193/89; PULSE 74
[2025-08-01] MEDS: Metoprolol Succinate ER 100 MG TAB.ER.24H PO (08:20)
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
[2025-08-01] MEDS: Nicotine 21 MG PATCH.TD24 TRANSDERMA (09:10)
--- NOTE | 2025-08-01 10:17 | PC.RT ---
spoke with Linda Meier RN about pt oxygen at home. pt has oxygen that he wears at nighttime. he usually wear 2 l at night. he does not need a Home oxygen Evaluation as he already has oxygen.
[2025-08-01 11:58] LABS: Glucose, Whole Blood 144 mg/dL (60-115)
[2025-08-01 14:35] VITALS: BP 165/76; PULSE 71; TEMP 36.5; O2SAT 96
[2025-08-01 16:51] LABS: Glucose, Whole Blood 257 mg/dL (60-115)
[2025-08-01 20:00] VITALS: BP 117/57; PULSE 71; RESP 20; TEMP 36.4; O2SAT 97
[2025-08-01 20:14] VITALS: BP 130/66
[2025-08-01] MEDS: Nicotine Polacrilex Lozenge 4 MG LOZENGE BUCCAL (20:49)
[2025-08-02 00:25] LABS: Glucose, Whole Blood 122 mg/dL (60-115)
--- NOTE | 2025-08-02 07:33 | HO.PSYCHPN ---
Subjective Subjective Date of Service: 08/02/25 Reason For Visit: crisis Interim History: met with patient. Discussed with Nursing. Utilizing 2 L of oxygen at nighttime. Point of care is noted and normally on an insulin pump outside of the hospital. Reports depression getting less. Feeling supported. Is attending groups. No SI. No agitation or psychosis. Is scoring on CIWA and getting coverage, but no current withdrawals noted. Will switch over to an Ativan taper 1.5 mg 4 times per day, then 1 mg 4 times per day and then 1 mg 3 times per day and primary team to review at that point. Patient in agreement with plan and also reports wanting rehab services as he has never tried rehab in the past. Medication Compliance: Yes Side effects from medications: No Attending Groups: Yes Review of Systems Acute medical concerns: No Review of Systems Review of Systems Nothing acute Mental Status Exam Mental Status Exam Narrative: pleasant. Engaged. Has been attending groups. Fairly presented. Reports mood gradually getting better. No SI. No agitation or psychosis. No current withdrawals but is scoring on CIWA. Insight and judgment fair Diagnostics Vital Signs (24Hr): Vital Signs - 24 hr 08/01/25 08:18 08/01/25 08:20 08/01/25 14:35 Temperature 97.7 F Pulse Rate 74 71 Respiratory Rate Blood Pressure 193/89 H 193/89 H 165/76 H Pulse Oximetry 96 Oxygen Delivery Method Room Air 08/01/25 20:00 08/01/25 20:14 Temperature 97.5 F Pulse Rate 71 Respiratory Rate 20 Blood Pressure 117/57 L 130/66 Pulse Oximetry 97 Oxygen Delivery Method Room Air BMI result Body Mass Index 21.6 Labs 07/31/25 01:37 08/02/25 07:31 Labs: Laboratory Results - last 48 hr 07/31/25 07/31/25 07/31/25 00:10 07:29 11:54 POC Glucose 137 H 229 H Urine Opiates Screen Not Detected Ur Buprenorphine Scrn Not Detected Ur Oxycodone Screen Not Detected Urine Methadone Screen Not Detected Urine Fentanyl Screen Not Detected Ur Barbiturates Screen POSITIVE H Ur Phencyclidine Scrn Not Detected Ur Amphetamines Screen Not Detected U Benzodiazepines Scrn Not Detected Urine Cocaine Screen Not Detected U Marijuana (THC) Screen POSITIVE H 07/31/25 07/31/25 08/01/25 16:55 20:14 07:27 POC Glucose 175 H 151 H 291 H Urine Opiates Screen Ur Buprenorphine Scrn Ur Oxycodone Screen Urine Methadone Screen Urine Fentanyl Screen Ur Barbiturates Screen Ur Phencyclidine Scrn Ur Amphetamines Screen U Benzodiazepines Scrn Urine Cocaine Screen U Marijuana (THC) Screen 08/01/25 08/01/25 08/01/25 11:53 16:47 20:12 POC Glucose 144 H 257 H 122 H Urine Opiates Screen Ur Buprenorphine Scrn Ur Oxycodone Screen Urine Methadone Screen Urine Fentanyl Screen Ur Barbiturates Screen Ur Phencyclidine Scrn Ur Amphetamines Screen U Benzodiazepines Scrn Urine Cocaine Screen U Marijuana (THC) Screen Medications Medications Current Medications Acetaminophen (Acetaminophen 325 Mg Tablet) 650 mg PO Q6H PRN PRN Reason: Headache/Pain, Scale 1-10 Last Admin: 08/01/25 20:14 Dose: 650 mg Al Hydroxide/Mg Hydroxide (Magnesium Hydrox/Alum Hydrox 30 Ml Oral.Susp) 30 ml PO Q6H PRN PRN Reason: Heartburn/Nausea Albuterol Sulfate (Albuterol Sulfate (0.083%) 2.5 Mg/3 Ml Vial.Neb) 2.5 mg INHALE Q6H PRN PRN Reason: Wheezing Amlodipine Besylate (Amlodipine Besylate 10 Mg Tablet) 10 mg PO DAILY [facility]; Protocol Last Admin: 08/01/25 08:19 Dose: 10 mg Aspirin (Aspirin Enteric Coated 81 Mg Tablet.) 81 mg PO DAILY [facility] Last Admin: 08/01/25 08:18 Dose: 81 mg Atorvastatin Calcium (Atorvastatin Calcium 40 Mg Tablet) 40 mg PO DAILY [facility] Last Admin: 08/01/25 08:20 Dose: 40 mg Cephalexin HCl (Cephalexin 500 Mg Capsule) 500 mg PO Q6H [facility] Last Admin: 08/02/25 05:51 Dose: 500 mg Dextrose (Dextrose 50 % 25 Gm/50 Ml Syringe) 25 gm IVPUSH Q15M PRN; Protocol PRN Reason: per Hypoglycemia Standing Ord. Escitalopram Oxalate (Escitalopram Oxalate 20 Mg Tablet) 20 mg PO DAILY [facility] Last Admin: 08/01/25 08:19 Dose: 20 mg Ferrous Sulfate (Ferrous Sulfate 324 Mg Tablet.) 324 mg PO DAILY [facility] Last Admin: 08/01/25 08:19 Dose: 324 mg Gabapentin (Gabapentin 300 Mg Capsule) 300 mg PO TID [facility] Last Admin: 08/01/25 20:15 Dose: 300 mg Glucose (Glucose Gel 15 Gm Gel..Gram.) 15 gm PO Q15M PRN; Protocol PRN Reason: per Hypoglycemia Standing Ord. Hydralazine HCl (Hydralazine Hcl 50 Mg Tablet) 100 mg PO TID [facility]; Protocol Last Admin: 08/01/25 20:15 Dose: 100 mg Hydroxyzine HCl (Hydroxyzine Hcl 25 Mg Tablet) 25 mg PO Q6H PRN PRN Reason: mild anxiety Last Admin: 07/31/25 12:08 Dose: 25 mg Insulin Human Lispro (Insulin Lispro 100 Unit/Ml 3 Ml Vial) 0 unit SUBCUT QIDACHS [facility]; Protocol Last Admin: 08/01/25 20:20 Dose: Not Given Lorazepam (Lorazepam 1 Mg Tablet) 1 mg PO Q2H PRN PRN Reason: CIWA 8-11 Last Admin: 08/02/25 03:28 Dose: 1 mg Lorazepam (Lorazepam 1 Mg Tablet) 2 mg PO Q2H PRN PRN Reason: CIWA 12-15 Last Admin: 07/31/25 23:42 Dose: 2 mg Lorazepam (Lorazepam 1 Mg Tablet) 3 mg PO Q2H PRN PRN Reason: CIWA > 15, and call MD Last Admin: 08/01/25 20:13 Dose: 3 mg Losartan Potassium (Losartan Potassium 50 Mg Tablet) 50 mg PO DAILY [facility]; Protocol Magnesium Hydroxide (Milk Of Magnesia 30 Ml Oral.Susp) 30 ml PO DAILY PRN PRN Reason: Constipation Magnesium Oxide (Magnesium Oxide 400 Mg Tablet) 400 mg PO DAILY [facility] Last Admin: 08/01/25 08:19 Dose: 400 mg Metoprolol Succinate (Metoprolol Succinate Er 100 Mg Tab.Er.24h) 100 mg PO DAILY [facility]; Protocol Last Admin: 08/01/25 08:20 Dose: 100 mg Naltrexone HCl (Naltrexone Hcl 50 Mg Tablet) 50 mg PO DAILY [facility] On Hold: 08/01/25 09:00 Nicotine (Nicotine 21 Mg Patch.Td24) 21 mg TRANSDERMA DAILY PRN PRN Reason: Smoking Cessation Last Admin: 08/01/25 09:10 Dose: 21 mg Nicotine Polacrilex (Nicotine Polacrilex Lozenge 4 Mg Lozenge) 4 mg BUCCAL Q2H PRN PRN Reason: Nicotine Cravings Last Admin: 08/01/25 20:49 Dose: 4 mg Omeprazole (Omeprazole 40 Mg Capsule.Dr) 40 mg PO DAILY@0630 [facility] Last Admin: 08/02/25 05:51 Dose: 40 mg Sucralfate (Sucralfate 1 Gm Tablet) 1 gm PO QID [facility] Last Admin: 08/01/25 20:15 Dose: 1 gm Thiamine HCl (Thiamine Hcl 100 Mg Tablet) 100 mg PO DAILY [facility] Last Admin: 08/01/25 08:19 Dose: 100 mg Tiotropium [place] (Tiotropium [place] 2.5 Mcg 1 Puff/2.5 Mcg Mist.Inhal) 2 puff INHALE RDAILY [facility] Torsemide (Torsemide 20 Mg Tablet) 60 mg PO DAILY [facility]; Protocol Last Admin: 08/01/25 08:18 Dose: 60 mg Torsemide (Torsemide 20 Mg Tablet) 40 mg PO BEDTIME [facility]; Protocol Last Admin: 08/01/25 20:14 Dose: 40 mg Trazodone HCl (Trazodone Hcl 50 Mg Tablet) 50 mg PO BEDTIME MRX1 PRN PRN Reason: Insomnia Last Admin: 08/02/25 03:28 Dose: 50 mg Trazodone HCl (Trazodone Hcl 100 Mg Tablet) 100 mg PO BEDTIME [facility] Last Admin: 08/01/25 20:14 Dose: 100 mg Allergies Allergies Allergy/AdvReac Type Severity Reaction Status Date / Time dulaglutide (From [facility]) Allergy Unknown Verified 07/30/25 23:17 metformin (METFORMIN) AdvReac Mild DIARRHEA, Verified 07/30/25 23:17 nausea and vomiting Assessment & Plan Assessment & Plan (1) MDD (major depressive disorder), recurrent episode, moderate: Status: Acute Code(s): F33.1 - Major depressive disorder, recurrent, moderate (2) PTSD (post-traumatic stress disorder): Status: Acute Code(s): F43.10 - Post-traumatic stress disorder, unspecified (3) Alcohol use disorder: Status: Acute Code(s): F10.90 - Alcohol use, unspecified, uncomplicated Plan Patient is a 50-year-old male with history of MDD, PTSD, alcohol use disorder who presented to ER via ambulance due to suicidal ideation with plan to overdose on his medications secondary to increased depression and alcohol intoxication. Plan: CV 15 minute safety checks Continue home medications [place] protocol Encourage groups Referral to outpatient psychiatric providers Referral to substance abuse program Discharge planning 08/02/25: Is scoring on CIWA and getting coverage, but no current withdrawals noted. Will switch over to an Ativan taper 1.5 mg 4 times per day, then 1 mg 4 times per day and then 1 mg 3 times per day and primary team to review at that point. Patient in agreement with plan and also reports wanting rehab services as he has never tried rehab in the past. Reason for continued inpatient stay Substantial Risk for: rapid decompensation Time Spent With Patient Time: Total time managing care of this patient today ____ minutes.
[2025-08-02 07:49] LABS: Glucose, Whole Blood 368 mg/dL (60-115)
[2025-08-02 08:00] VITALS: BP 130/69; PULSE 90; RESP 20; TEMP 36.5; O2SAT 98
[2025-08-02 08:28] LABS: Hemoglobin A1C 165.5681 umol/L; Total Hemoglobin (HGBA1C) 3081.9256 umol/L
[2025-08-02 08:45] LABS: Alanine Aminotransferase 33 U/L (0-40); Albumin Level 3.3 g/dL (3.5-5.0); Alkaline Phosphatase 184 U/L (39-117); Anion Gap 14 (12-20); Aspartate Amino Transferase 44 U/L (5-37); Blood Urea Nitrogen 19 mg/dL (9-16); Calcium 8.6 mg/dL (8.4-10.2); Carbon Dioxide 30 mmol/L (22-29); Chloride 99 mmol/L (96-108); Cholesterol 220 mg/dL (<200); Creatinine Clr Calc Pharmacy 54.8; Estimated Glomerular Filt Rate 57; HDL Cholesterol 110 mg/dL (>40); Potassium 4.7 mmol/L (3.3-5.1); Sodium 138 mmol/L (135-145); Total Protein 6.5 g/dL (6.5-8.0); Triglycerides 95 mg/dL (<150)
[2025-08-02] MEDS: Tiotropium Bromide 2.5 mcg 1 PUFF/2.5 MCG MIST.INHAL 2 PUFF INHALE (09:00)
[2025-08-02 09:02] VITALS: BP 130/69; PULSE 90
[2025-08-02] MEDS: Metoprolol Succinate ER 100 MG TAB.ER.24H PO (09:02)
[2025-08-02 09:03] VITALS: BP 130/69
[2025-08-02 09:04] VITALS: BP 130/69
[2025-08-02] MEDS: Ferrous Sulfate 324 MG TABLET.DR PO (09:06)
[2025-08-02] MEDS: Aspirin Enteric Coated 81 MG TABLET.DR PO (09:07)
[2025-08-02] MEDS: Nicotine 21 MG PATCH.TD24 TRANSDERMA (09:10)
[2025-08-02] MEDS: Nicotine Polacrilex Lozenge 4 MG LOZENGE BUCCAL ×3 (09:15→23:27)
[2025-08-02 12:24] LABS: Glucose, Whole Blood 230 mg/dL (60-115)
[2025-08-02 15:08] VITALS: BP 147/71
--- NOTE | 2025-08-02 15:30 | MHC.RECOVRN ---
Met with [place] in [place] after consult placed to Addiction Medicine for alcohol overuse. Chart review completed . Pt had presented to the ED via EMS after brother called due to pt. drinking vodka x 1 week and depressed . Pt was subsequently admitted to the floor for stalilization. Pt reports to this instructional writer I can not go on like this anymore in relation to his drinking. Upon assessment pt is sitting at a table in the [place] awake and alert and able to answer questions appropriately. Pt participated in our meeting without difficulties. Pt reports that he is currently on Naltrexone but it does not help . He identifies his triggers as being living alone and his brother coming over with alcohol. He reports he has been drinking since he was 16 and that his drink of choice in vodka. Amount not quantified. Pt reports that his children are supportive of his sobriety. Pt did not f/u on RC or IOP resources/referrals given at last inpt. stay. Pt is interested in going to inpt. AUD program. He understands that there may be a wait list and is interested in IOP, RC while awaiting a bed. Pt given resources on RC, IOP/PHP and CSS/TSS and messages sent to SW and CM re: pt's D/C goals. T/W will f/u with pt. tomorrow to see if any questions on resources/further need for support.?? F/U with pt's nurse Catherine to inquire about why Naltrexone is on hold. Pending reply ACS will re- refer to RC PRN. ACS available PRN
[2025-08-02 16:58] LABS: Glucose, Whole Blood 275 mg/dL (60-115)
[2025-08-02 20:23] LABS: Glucose, Whole Blood 323 mg/dL (60-115)
[2025-08-02 20:30] VITALS: BP 159/83; PULSE 85; RESP 16; TEMP 36.5; O2SAT 95
[2025-08-03 04:00] VITALS: BP 175/89; PULSE 89; RESP 18; O2SAT 95
--- NOTE | 2025-08-03 04:15 | PM.EVENT ---
Event Note Date of Service: 08/03/25 Event Note: 04:05 - Evaluated the patient after mechanical fall. He was lying in the floor. VSS. He denied any symptoms such as dizziness, chest pain or shortness of breath. He also denied headache. He was able to stand up with assistance and able to lying down in bed. We will obtain head and C-spine CT scan to assess for acute intracranial abnormalities and fractures. Time Spent With Patient Time: Total time managing care of this patient today ____ minutes.
--- NOTE | 2025-08-03 04:41 | PC.NURSE ---
At 0400 patient was walking back from the kitchen to his bedroom to return to sleep. While in room and walking back to his bed, he tripped over the bed-frame of the first bed in the room and fell on the floor in the space between bed 1 and 2. He was observed by an MHC hitting the back of his head. Vitals were done and a neuro check done. Pupils were equal and reactive and strength bilateral in upper and lower extremities intact. Patient seen by hospitalist and a CT scan was done. Patient is not reporting any pain and he is currently sleeping.
[2025-08-03 07:35] LABS: Glucose, Whole Blood 389 mg/dL (60-115)
[2025-08-03 08:00] VITALS: BP 143/76; PULSE 91; RESP 14; TEMP 36.5; O2SAT 97
[2025-08-03] MEDS: Tiotropium Bromide 2.5 mcg 1 PUFF/2.5 MCG MIST.INHAL 2 PUFF INHALE (08:13)
[2025-08-03] MEDS: Metoprolol Succinate ER 100 MG TAB.ER.24H PO (08:15)
[2025-08-03] MEDS: Ferrous Sulfate 324 MG TABLET.DR PO (08:16)
[2025-08-03] MEDS: Aspirin Enteric Coated 81 MG TABLET.DR PO (08:16)
[2025-08-03] MEDS: Nicotine 21 MG PATCH.TD24 TRANSDERMA (08:21)
--- NOTE | 2025-08-03 09:20 | PM.EVENT ---
Event Note Date of Service: 08/03/25 Event Note: imaging reviewed head/c-spine CT negative for acute fracture cervical spine CT with enlarged left supraclavicular and upper left mediastinal lymph nodes - recommend outpatient follow up with PCP for further investigation Time Spent With Patient Time: Total time managing care of this patient today ____ minutes.
--- NOTE | 2025-08-03 11:02 | P.PNPSI_ITS ---
Subjective Subjective Date of Service: 08/03/25 Reason For Visit: crisis Interim History: Had a fall last night. This was mechanical in nature i.e. tripped at edge of bed. Blood sugars continue to be elevated and will adjust sliding scale. At home uses insulin pump. Otherwise feeling supported. Mood getting better. No SI. Doing okay with Ativan taper rather than CIWA. Still wants rehab programming as part of discharge plan. Medication Compliance: Yes Side effects from medications: No Attending Groups: Intermittent Review of Systems Fall last night and formal head CT result pending. Adjusting insulin sliding scale Review of Systems Review of Systems Nothing acute Mental Status Exam Mental Status Exam Narrative: pleasant. Engaged. Has been attending groups. Fairly presented. Reports mood gradually getting better. No SI. No agitation or psychosis. No current withdrawals. Insight and judgment fair Diagnostics Vital Signs (24Hr): Vital Signs - 24 hr 08/02/25 15:08 08/02/25 20:30 08/03/25 04:00 Temperature 97.7 F Pulse Rate 85 89 Respiratory Rate 16 18 Blood Pressure 147/71 H 159/83 H 175/89 H Pulse Oximetry 95 95 Oxygen Delivery Method Room Air Room Air 08/03/25 08:00 Temperature 97.7 F Pulse Rate 91 Respiratory Rate 14 Blood Pressure 143/76 H Pulse Oximetry 97 Oxygen Delivery Method Room Air BMI result Body Mass Index 21.6 Labs 07/31/25 01:37 08/02/25 07:31 Labs: Laboratory Results - last 48 hr 08/01/25 08/01/25 08/01/25 11:53 16:47 20:12 Sodium Potassium Chloride Carbon Dioxide Anion Gap BUN Creatinine Estim Creat Clear Calc Estimated GFR POC Glucose 144 H 257 H 122 H Random Glucose Estimat Average Glucose Hemoglobin A1c % Calcium Total Bilirubin AST ALT Alkaline Phosphatase Total Protein Albumin Triglycerides Cholesterol LDL Cholesterol, Calc HDL Cholesterol 08/02/25 08/02/25 08/02/25 07:31 07:37 12:18 Sodium 138 Potassium 4.7 D Chloride 99 Carbon Dioxide 30 H Anion Gap 14 BUN 19 H Creatinine 1.33 Estim Creat Clear Calc 54.8 Estimated GFR 57 POC Glucose 368 H* 230 H Random Glucose 372 H* Estimat Average Glucose 157 Hemoglobin A1c % 7.1 H Calcium 8.6 Total Bilirubin 0.2 AST 44 H ALT 33 Alkaline Phosphatase 184 H Total Protein 6.5 Albumin 3.3 L Triglycerides 95 Cholesterol 220 H LDL Cholesterol, Calc 91 HDL Cholesterol 110 08/02/25 08/02/25 08/03/25 16:55 20:18 07:30 Sodium Potassium Chloride Carbon Dioxide Anion Gap BUN Creatinine Estim Creat Clear Calc Estimated GFR POC Glucose 275 H 323 H 389 H* Random Glucose Estimat Average Glucose Hemoglobin A1c % Calcium Total Bilirubin AST ALT Alkaline Phosphatase Total Protein Albumin Triglycerides Cholesterol LDL Cholesterol, Calc HDL Cholesterol Medications Medications Current Medications Acetaminophen (Acetaminophen 325 Mg Tablet) 650 mg PO Q6H PRN PRN Reason: Headache/Pain, Scale 1-10 Last Admin: 08/02/25 23:17 Dose: 650 mg Al Hydroxide/Mg Hydroxide (Magnesium Hydrox/Alum Hydrox 30 Ml Oral.Susp) 30 ml PO Q6H PRN PRN Reason: Heartburn/Nausea Albuterol Sulfate (Albuterol Sulfate (0.083%) 2.5 Mg/3 Ml Vial.Neb) 2.5 mg INHALE Q6H PRN PRN Reason: Wheezing Amlodipine Besylate (Amlodipine Besylate 10 Mg Tablet) 10 mg PO DAILY [facility]; Protocol Last Admin: 08/03/25 08:16 Dose: 10 mg Aspirin (Aspirin Enteric Coated 81 Mg Tablet.) 81 mg PO DAILY [facility] Last Admin: 08/03/25 08:16 Dose: 81 mg Atorvastatin Calcium (Atorvastatin Calcium 40 Mg Tablet) 40 mg PO DAILY [facility] Last Admin: 08/03/25 08:17 Dose: 40 mg Cephalexin HCl (Cephalexin 500 Mg Capsule) 500 mg PO Q6H [facility] Last Admin: 08/03/25 06:36 Dose: 500 mg Dextrose (Dextrose 50 % 25 Gm/50 Ml Syringe) 25 gm IVPUSH Q15M PRN; Protocol PRN Reason: per Hypoglycemia Standing Ord. Escitalopram Oxalate (Escitalopram Oxalate 20 Mg Tablet) 20 mg PO DAILY [facility] Last Admin: 08/03/25 08:17 Dose: 20 mg Ferrous Sulfate (Ferrous Sulfate 324 Mg Tablet.) 324 mg PO DAILY [facility] Last Admin: 08/03/25 08:16 Dose: 324 mg Gabapentin (Gabapentin 300 Mg Capsule) 300 mg PO TID [facility] Last Admin: 08/03/25 08:16 Dose: 300 mg Glucose (Glucose Gel 15 Gm Gel..Gram.) 15 gm PO Q15M PRN; Protocol PRN Reason: per Hypoglycemia Standing Ord. Hydralazine HCl (Hydralazine Hcl 50 Mg Tablet) 100 mg PO TID [facility]; Protocol Last Admin: 08/03/25 08:16 Dose: 100 mg Hydroxyzine HCl (Hydroxyzine Hcl 25 Mg Tablet) 25 mg PO Q6H PRN PRN Reason: mild anxiety Last Admin: 07/31/25 12:08 Dose: 25 mg Insulin Human Lispro (Insulin Lispro 100 Unit/Ml 3 Ml Vial) 0 unit SUBCUT QIDACHS [facility]; Protocol Last Admin: 08/03/25 08:17 Dose: 10 unit Lorazepam (Lorazepam 1 Mg Tablet) 1 mg PO QID [facility] Stop: 08/04/25 00:05 Last Admin: 08/03/25 08:17 Dose: 1 mg Lorazepam (Lorazepam 1 Mg Tablet) 1 mg PO TID [facility] Stop: 08/05/25 00:09 Losartan Potassium (Losartan Potassium 50 Mg Tablet) 50 mg PO DAILY [facility]; Protocol Last Admin: 08/03/25 08:29 Dose: 50 mg Magnesium Hydroxide (Milk Of Magnesia 30 Ml Oral.Susp) 30 ml PO DAILY PRN PRN Reason: Constipation Magnesium Oxide (Magnesium Oxide 400 Mg Tablet) 400 mg PO DAILY [facility] Last Admin: 08/03/25 08:16 Dose: 400 mg Metoprolol Succinate (Metoprolol Succinate Er 100 Mg Tab.Er.24h) 100 mg PO DAILY [facility]; Protocol Last Admin: 08/03/25 08:15 Dose: 100 mg Naltrexone HCl (Naltrexone Hcl 50 Mg Tablet) 50 mg PO DAILY [facility] On Hold: 08/01/25 09:00 Nicotine (Nicotine 21 Mg Patch.Td24) 21 mg TRANSDERMA DAILY PRN PRN Reason: Smoking Cessation Last Admin: 08/03/25 08:21 Dose: 21 mg Nicotine Polacrilex (Nicotine Polacrilex Lozenge 4 Mg Lozenge) 4 mg BUCCAL Q1H PRN PRN Reason: Nicotine Cravings Last Admin: 08/02/25 23:27 Dose: 4 mg Olanzapine (Olanzapine 10 Mg Tablet) 10 mg PO BEDTIME [facility] Last Admin: 08/02/25 20:31 Dose: 10 mg Olanzapine (Olanzapine 5 Mg Tablet) 5 mg PO Q4H PRN PRN Reason: psychosis/hallucinations Omeprazole (Omeprazole 40 Mg Capsule.Dr) 40 mg PO DAILY@0630 [facility] Last Admin: 08/03/25 06:36 Dose: 40 mg Sucralfate (Sucralfate 1 Gm Tablet) 1 gm PO QID [facility] Last Admin: 08/03/25 08:20 Dose: 1 gm Thiamine HCl (Thiamine Hcl 100 Mg Tablet) 100 mg PO DAILY [facility] Last Admin: 08/03/25 08:16 Dose: 100 mg Tiotropium [place] (Tiotropium [place] 2.5 Mcg 1 Puff/2.5 Mcg Mist.Inhal) 2 puff INHALE RDAILY [facility] Last Admin: 08/03/25 08:13 Dose: 2 puff Torsemide (Torsemide 20 Mg Tablet) 60 mg PO DAILY [facility]; Protocol Last Admin: 08/03/25 08:15 Dose: 60 mg Torsemide (Torsemide 20 Mg Tablet) 40 mg PO BEDTIME [facility]; Protocol Last Admin: 08/02/25 20:29 Dose: 40 mg Trazodone HCl (Trazodone Hcl 50 Mg Tablet) 50 mg PO BEDTIME MRX1 PRN PRN Reason: Insomnia Last Admin: 08/02/25 03:28 Dose: 50 mg Trazodone HCl (Trazodone Hcl 100 Mg Tablet) 100 mg PO BEDTIME [facility] Last Admin: 08/02/25 20:31 Dose: 100 mg Allergies Allergies Allergy/AdvReac Type Severity Reaction Status Date / Time dulaglutide (From [facility]) Allergy Unknown Verified 07/30/25 23:17 metformin (METFORMIN) AdvReac Mild DIARRHEA, Verified 07/30/25 23:17 nausea and vomiting Assessment & Plan Assessment & Plan (1) MDD (major depressive disorder), recurrent episode, moderate: Status: Acute Code(s): F33.1 - Major depressive disorder, recurrent, moderate (2) PTSD (post-traumatic stress disorder): Status: Acute Code(s): F43.10 - Post-traumatic stress disorder, unspecified (3) Alcohol use disorder: Status: Acute Code(s): F10.90 - Alcohol use, unspecified, uncomplicated Plan Patient is a 50-year-old male with history of MDD, PTSD, alcohol use disorder who presented to ER via ambulance due to suicidal ideation with plan to overdose on his medications secondary to increased depression and alcohol intoxication. Plan: CV 15 minute safety checks Continue home medications CIWA protocol Encourage groups Referral to outpatient psychiatric providers Referral to substance abuse program Discharge planning 08/02/25: Is scoring on CIWA and getting coverage, but no current withdrawals noted. Will switch over to an Ativan taper 1.5 mg 4 times per day, then 1 mg 4 times per day and then 1 mg 3 times per day and primary team to review at that point. Patient in agreement with plan and also reports wanting rehab services as he has never tried rehab in the past. 08/03/2025: Adjust insulin sliding scale, otherwise no changes. Had a fall last night which was mechanical in nature and seen by Medicine Reason for continued inpatient stay Substantial Risk for: rapid decompensation Time Spent With Patient Time: Total time managing care of this patient today ____ minutes.
[2025-08-03 12:18] LABS: Glucose, Whole Blood 247 mg/dL (60-115)
--- NOTE | 2025-08-03 15:33 | MHC.RECOVRN ---
T/W went to visit pt. in 324-2 to f/u and offer support Pt sleeping Report on E mails sent to support pt's D/C wishes given to Nurse Catherine. ACS available PRN.
[2025-08-03 16:07] VITALS: BP 138/77
[2025-08-03 17:00] LABS: Glucose, Whole Blood 191 mg/dL (60-115)
--- NOTE | 2025-08-03 17:27 | PC.NURSE ---
Patient observed choking while in dining room eating dinner. aMkeda norman performed several times, with + result. Large bolus of food observed to come up. Patient then coughed up large amount of sputum. Able to speak and swallow following episode. Briana Faria messaged via text, hospital consult requested. Waiting response.
--- NOTE | 2025-08-03 18:14 | PC.NURSE ---
Patient observed to swallow water without difficulty following choking episode. Reports he is not having any difficulty at this time. Sitting in common area in front of nursing station.
[2025-08-03 20:49] VITALS: BP 130/78; PULSE 89; RESP 18; TEMP 36.6; O2SAT 100
[2025-08-03 21:17] LABS: Glucose, Whole Blood 242 mg/dL (60-115)
--- NOTE | 2025-08-04 01:14 | PC.NURSE ---
Pt currently on an ativan taper. Order to start ativan 1 mg TID (0900, 1500, 2100) on 08/04, however 1st dose ordered to be given at 0010. Pt received 1 mg at 2138 (on 08/03). Dose to be given at 0010 would total 4 doses on 08/04, therefore dose was held at RN discretion.
[2025-08-04 07:43] LABS: Glucose, Whole Blood 350 mg/dL (60-115)
[2025-08-04 08:00] VITALS: BP 146/74; PULSE 91; RESP 14; TEMP 36.3; O2SAT 97
[2025-08-04 08:52] VITALS: BP 146/74
[2025-08-04] MEDS: Nicotine 21 MG PATCH.TD24 TRANSDERMA (08:52)
[2025-08-04] MEDS: Metoprolol Succinate ER 100 MG TAB.ER.24H PO (08:54)
[2025-08-04] MEDS: Aspirin Enteric Coated 81 MG TABLET.DR PO (08:55)
[2025-08-04] MEDS: Ferrous Sulfate 324 MG TABLET.DR PO (08:55)
[2025-08-04] MEDS: Tiotropium Bromide 2.5 mcg 1 PUFF/2.5 MCG MIST.INHAL 2 PUFF INHALE (08:56)
[2025-08-04] MEDS: Insulin Glargine,Hum.rec.anlog 100 UNIT/ML 10 ML VIAL 10 UNIT SUBCUT (09:30)
--- NOTE | 2025-08-04 10:01 | P.PNPSI_ITS ---
Subjective Subjective Date of Service: 08/04/25 Reason For Visit: crisis Subjective Notes: Conditional Voluntary Interim History: Active on unit. attending groups. Patient reports having lots of anxiety today; he reports sleeping well last night. denies SI/HI/VH/AH. Patient reports he plans on returning home after discharge; discussed possibly DC on /Monday if continues to improve. Continue tx plan. Medication Compliance: Yes Side effects from medications: No Attending Groups: Yes Mental Status Exam Mental Status Exam Narrative: Pt is alert and oriented; behavior is cooperative and calm; dressed in casual attire; mood is described as anxious ; eye contact appropriate; Speech is normal rate, volume and not pressured; thought process is organized; Thought content is on tx; denies SI/HI/VH/AH. Diagnostics Vital Signs (24Hr): Vital Signs - 24 hr 08/03/25 16:07 08/03/25 20:49 08/04/25 08:00 Temperature 97.8 F 97.4 F Pulse Rate 89 91 Respiratory Rate 18 14 Blood Pressure 138/77 130/78 146/74 H Pulse Oximetry 100 97 Oxygen Delivery Method Room Air Room Air 08/04/25 08:52 Temperature Pulse Rate Respiratory Rate Blood Pressure 146/74 H Pulse Oximetry Oxygen Delivery Method BMI result Body Mass Index 21.6 Labs 07/31/25 01:37 08/02/25 07:31 Labs: Laboratory Results - last 48 hr 08/02/25 08/02/25 08/02/25 12:18 16:55 20:18 POC Glucose 230 H 275 H 323 H 08/03/25 08/03/25 08/03/25 07:30 12:14 16:54 POC Glucose 389 H* 247 H 191 H 08/03/25 08/04/25 21:11 07:37 POC Glucose 242 H 350 H* Medications Medications Current Medications Acetaminophen (Acetaminophen 325 Mg Tablet) 650 mg PO Q6H PRN PRN Reason: Headache/Pain, Scale 1-10 Last Admin: 08/04/25 08:55 Dose: 650 mg Al Hydroxide/Mg Hydroxide (Magnesium Hydrox/Alum Hydrox 30 Ml Oral.Susp) 30 ml PO Q6H PRN PRN Reason: Heartburn/Nausea Albuterol Sulfate (Albuterol Sulfate (0.083%) 2.5 Mg/3 Ml Vial.Neb) 2.5 mg INHALE Q6H PRN PRN Reason: Wheezing Amlodipine Besylate (Amlodipine Besylate 10 Mg Tablet) 10 mg PO DAILY [facility]; Protocol Last Admin: 08/04/25 08:55 Dose: 10 mg Aspirin (Aspirin Enteric Coated 81 Mg Tablet.) 81 mg PO DAILY [facility] Last Admin: 08/04/25 08:55 Dose: 81 mg Atorvastatin Calcium (Atorvastatin Calcium 40 Mg Tablet) 40 mg PO DAILY [facility] Last Admin: 08/04/25 08:55 Dose: 40 mg Cephalexin HCl (Cephalexin 500 Mg Capsule) 500 mg PO Q6H [facility] Last Admin: 08/04/25 06:17 Dose: 500 mg Dextrose (Dextrose 50 % 25 Gm/50 Ml Syringe) 25 gm IVPUSH Q15M PRN; Protocol PRN Reason: per Hypoglycemia Standing Ord. Escitalopram Oxalate (Escitalopram Oxalate 20 Mg Tablet) 20 mg PO DAILY [facility] Last Admin: 08/04/25 08:53 Dose: 20 mg Ferrous Sulfate (Ferrous Sulfate 324 Mg Tablet.) 324 mg PO DAILY [facility] Last Admin: 08/04/25 08:55 Dose: 324 mg Gabapentin (Gabapentin 300 Mg Capsule) 300 mg PO TID [facility] Last Admin: 08/04/25 08:53 Dose: 300 mg Glucose (Glucose Gel 15 Gm Gel..Gram.) 15 gm PO Q15M PRN; Protocol PRN Reason: per Hypoglycemia Standing Ord. Hydralazine HCl (Hydralazine Hcl 50 Mg Tablet) 100 mg PO TID [facility]; Protocol Last Admin: 08/04/25 09:28 Dose: 100 mg Hydroxyzine HCl (Hydroxyzine Hcl 25 Mg Tablet) 25 mg PO Q6H PRN PRN Reason: mild anxiety Last Admin: 07/31/25 12:08 Dose: 25 mg Insulin Glargine (Insulin Glargine,Hum.Rec.Anlog 100 Unit/Ml 10 Ml Vial) 10 unit SUBCUT DAILY [facility] Last Admin: 08/04/25 09:30 Dose: 10 unit Insulin Human Lispro (Insulin Lispro 100 Unit/Ml 3 Ml Vial) 0 unit SUBCUT TIDAC [facility]; Protocol Lorazepam (Lorazepam 1 Mg Tablet) 1 mg PO TID [facility] Stop: 08/05/25 00:09 Last Admin: 08/04/25 08:54 Dose: 1 mg Losartan Potassium (Losartan Potassium 50 Mg Tablet) 50 mg PO DAILY [facility]; Protocol Last Admin: 08/04/25 08:55 Dose: 50 mg Magnesium Hydroxide (Milk Of Magnesia 30 Ml Oral.Susp) 30 ml PO DAILY PRN PRN Reason: Constipation Magnesium Oxide (Magnesium Oxide 400 Mg Tablet) 400 mg PO DAILY [facility] Last Admin: 08/04/25 08:55 Dose: 400 mg Metoprolol Succinate (Metoprolol Succinate Er 100 Mg Tab.Er.24h) 100 mg PO DAILY [facility]; Protocol Last Admin: 08/04/25 08:54 Dose: 100 mg Naltrexone HCl (Naltrexone Hcl 50 Mg Tablet) 50 mg PO DAILY [facility] On Hold: 08/01/25 09:00 Nicotine (Nicotine 21 Mg Patch.Td24) 21 mg TRANSDERMA DAILY PRN PRN Reason: Smoking Cessation Last Admin: 08/04/25 08:52 Dose: 21 mg Nicotine Polacrilex (Nicotine Polacrilex Lozenge 4 Mg Lozenge) 4 mg BUCCAL Q1H PRN PRN Reason: Nicotine Cravings Last Admin: 08/02/25 23:27 Dose: 4 mg Olanzapine (Olanzapine 10 Mg Tablet) 10 mg PO BEDTIME [facility] Last Admin: 08/03/25 21:38 Dose: 10 mg Olanzapine (Olanzapine 5 Mg Tablet) 5 mg PO Q4H PRN PRN Reason: psychosis/hallucinations Omeprazole (Omeprazole 40 Mg Capsule.Dr) 40 mg PO DAILY@0630 [facility] Last Admin: 08/04/25 06:17 Dose: 40 mg Sucralfate (Sucralfate 1 Gm Tablet) 1 gm PO QID [facility] Last Admin: 08/04/25 08:55 Dose: 1 gm Thiamine HCl (Thiamine Hcl 100 Mg Tablet) 100 mg PO DAILY [facility] Last Admin: 08/04/25 08:55 Dose: 100 mg Tiotropium [place] (Tiotropium [place] 2.5 Mcg 1 Puff/2.5 Mcg Mist.Inhal) 2 puff INHALE RDAILY [facility] Last Admin: 08/04/25 08:56 Dose: 2 puff Torsemide (Torsemide 20 Mg Tablet) 60 mg PO DAILY [facility]; Protocol Last Admin: 08/04/25 08:52 Dose: 60 mg Torsemide (Torsemide 20 Mg Tablet) 40 mg PO BEDTIME [facility]; Protocol Last Admin: 08/03/25 21:39 Dose: 40 mg Trazodone HCl (Trazodone Hcl 50 Mg Tablet) 50 mg PO BEDTIME MRX1 PRN PRN Reason: Insomnia Last Admin: 08/02/25 03:28 Dose: 50 mg Trazodone HCl (Trazodone Hcl 100 Mg Tablet) 100 mg PO BEDTIME [facility] Last Admin: 08/03/25 21:38 Dose: 100 mg Allergies Allergies Allergy/AdvReac Type Severity Reaction Status Date / Time dulaglutide (From [facility]) Allergy Unknown Verified 07/30/25 23:17 metformin (METFORMIN) AdvReac Mild DIARRHEA, Verified 07/30/25 23:17 nausea and vomiting Assessment & Plan Assessment & Plan (1) MDD (major depressive disorder), recurrent episode, moderate: Status: Acute Code(s): F33.1 - Major depressive disorder, recurrent, moderate (2) PTSD (post-traumatic stress disorder): Status: Acute Code(s): F43.10 - Post-traumatic stress disorder, unspecified (3) Alcohol use disorder: Status: Acute Code(s): F10.90 - Alcohol use, unspecified, uncomplicated Plan Patient is a 50-year-old male with history of MDD, PTSD, alcohol use disorder who presented to ER via ambulance due to suicidal ideation with plan to overdose on his medications secondary to increased depression and alcohol intoxication. Plan: CV 15 minute safety checks Continue home medications CIWA protocol Encourage groups Referral to outpatient psychiatric providers Referral to substance abuse program Discharge planning 08/02/25: Is scoring on CIWA and getting coverage, but no current withdrawals noted. Will switch over to an Ativan taper 1.5 mg 4 times per day, then 1 mg 4 times per day and then 1 mg 3 times per day and primary team to review at that point. Patient in agreement with plan and also reports wanting rehab services as he has never tried rehab in the past. 08/03/2025: Adjust insulin sliding scale, otherwise no changes. Had a fall last night which was mechanical in nature and seen by Medicine 08/04: Active on unit. attending groups. Patient reports having lots of anxiety today; he reports sleeping well last night. denies SI/HI/VH/AH. Patient reports he plans on returning home after discharge; discussed possibly DC on /Monday if continues to improve. Continue tx plan. Patient educated on: diagnosis, medication risk/benefits and therapeutic strategies Reason for continued inpatient stay Substantial Risk for: med/psych decompensation Time Spent With Patient Time: Total time managing care of this patient today _20___ minutes.
--- NOTE | 2025-08-04 11:24 | HO.PM.IMPN ---
Subjective Subjective Date of Service: 08/04/25 Interval History: Patient noted to have a choking episode in the dining room on 08/03, the Heimlich maneuver was performed several times with a large bolus of food regurgitating. After the incident he was noted to be able to speak and swallow as well as drinking water. Notably also patient was found on the floor at 04:00, he had a head CT performed that were negative except for the presence of left supraclavicular and upper left mediastinal lymph node prominence. Patient reports that his breathing is better since starting Spiriva. His blood pressures are also noted to be improved. Patient's blood sugar reviewed. They are ranging 200s to high 300s. Received 30 units of lispro insulin on 08/03. Has had dietary indiscretions. On exam he denies any shortness of breath, dizziness, headaches, cough, fever or chills. Reports that he feels fine, concerned about a liquid diet, speech eval pending. Review of Systems Denies any shortness of breath, chest pain, palpitations, dizziness, lightheadedness, headaches, dysuria, abdominal pain or discomfort, nausea, vomiting or diarrhea. Denies Chills, body aches, muscle aches, fatigue or weight loss. Physical Exam Vital Signs: Vital Signs: Last Vital Signs Temp 97.4 F 08/04/25 08:00 Pulse 91 08/04/25 08:00 Resp 14 08/04/25 08:00 BP 146/74 H 08/04/25 08:52 Pulse Ox 97 08/04/25 08:00 O2 Del Method Room Air 08/04/25 08:00 O2 Flow Rate 2 07/31/25 07:06 BMI result Body Mass Index 21.6 CONST: Alert and oriented, in NAD. Well nourished HEENT: Normocephalic, atraumatic, MMM, Eyes clear, Neck supple RESP: Lungs clear, RRR even and regular HEART:,RRR, S1, S2. Bilateral lower extremities improved. GI:Abdomen Soft NT, ND. + BS times four :Deferred SKIN: Warm dry and intact, no visible lesions or rashes NEURO:CN II-XII Intact bilaterally, Sensation intact. Speech clear PSYCH: Normal affect Objective Data Active Medications Acetaminophen (Acetaminophen 325 Mg Tablet) 650 mg PO Q6H PRN PRN Reason: Headache/Pain, Scale 1-10 Last Admin: 08/04/25 08:55 Dose: 650 mg Documented By: DOSTALD Al Hydroxide/Mg Hydroxide (Magnesium Hydrox/Alum Hydrox 30 Ml Oral.Susp) 30 ml PO Q6H PRN PRN Reason: Heartburn/Nausea Albuterol Sulfate (Albuterol Sulfate (0.083%) 2.5 Mg/3 Ml Vial.Neb) 2.5 mg INHALE Q6H PRN PRN Reason: Wheezing Amlodipine Besylate (Amlodipine Besylate 10 Mg Tablet) 10 mg PO DAILY [facility]; Protocol Last Admin: 08/04/25 08:55 Dose: 10 mg Documented By: DOSTALD Aspirin (Aspirin Enteric Coated 81 Mg Tablet.) 81 mg PO DAILY [facility] Last Admin: 08/04/25 08:55 Dose: 81 mg Documented By: DOSTALD Atorvastatin Calcium (Atorvastatin Calcium 40 Mg Tablet) 40 mg PO DAILY [facility] Last Admin: 08/04/25 08:55 Dose: 40 mg Documented By: DOSTALD Cephalexin HCl (Cephalexin 500 Mg Capsule) 500 mg PO Q6H [facility] Last Admin: 08/04/25 06:17 Dose: 500 mg Documented By: TOEGEK Dextrose (Dextrose 50 % 25 Gm/50 Ml Syringe) 25 gm IVPUSH Q15M PRN; Protocol PRN Reason: per Hypoglycemia Standing Ord. Escitalopram Oxalate (Escitalopram Oxalate 20 Mg Tablet) 20 mg PO DAILY [facility] Last Admin: 08/04/25 08:53 Dose: 20 mg Documented By: DOSTALD Ferrous Sulfate (Ferrous Sulfate 324 Mg Tablet.) 324 mg PO DAILY [facility] Last Admin: 08/04/25 08:55 Dose: 324 mg Documented By: DOSTALD Gabapentin (Gabapentin 300 Mg Capsule) 300 mg PO TID [facility] Last Admin: 08/04/25 08:53 Dose: 300 mg Documented By: DOSTALD Glucose (Glucose Gel 15 Gm Gel..Gram.) 15 gm PO Q15M PRN; Protocol PRN Reason: per Hypoglycemia Standing Ord. Hydralazine HCl (Hydralazine Hcl 50 Mg Tablet) 100 mg PO TID [facility]; Protocol Last Admin: 08/04/25 09:28 Dose: 100 mg Documented By: DOSTALD Hydroxyzine HCl (Hydroxyzine Hcl 25 Mg Tablet) 25 mg PO Q6H PRN PRN Reason: mild anxiety Last Admin: 07/31/25 12:08 Dose: 25 mg Documented By: WASSICL Insulin Glargine (Insulin Glargine,Hum.Rec.Anlog 100 Unit/Ml 10 Ml Vial) 10 unit SUBCUT DAILY [facility] Last Admin: 08/04/25 09:30 Dose: 10 unit Documented By: ROBERTTALBenjamín Insulin Human Lispro (Insulin Lispro 100 Unit/Ml 3 Ml Vial) 0 unit SUBCUT TIDAC [facility]; Protocol Losartan Potassium (Losartan Potassium 50 Mg Tablet) 50 mg PO DAILY [facility]; Protocol Last Admin: 08/04/25 08:55 Dose: 50 mg Documented By: ROBETRTALBenjamín Magnesium Hydroxide (Milk Of Magnesia 30 Ml Oral.Susp) 30 ml PO DAILY PRN PRN Reason: Constipation Magnesium Oxide (Magnesium Oxide 400 Mg Tablet) 400 mg PO DAILY [facility] Last Admin: 08/04/25 08:55 Dose: 400 mg Documented By: ROLAND Metoprolol Succinate (Metoprolol Succinate Er 100 Mg Tab.Er.24h) 100 mg PO DAILY [facility]; Protocol Last Admin: 08/04/25 08:54 Dose: 100 mg Documented By: ROLAND Naltrexone HCl (Naltrexone Hcl 50 Mg Tablet) 50 mg PO DAILY [facility] On Hold: 08/01/25 09:00 Nicotine (Nicotine 21 Mg Patch.Td24) 21 mg TRANSDERMA DAILY PRN PRN Reason: Smoking Cessation Last Admin: 08/04/25 08:52 Dose: 21 mg Documented By: ROLAND Nicotine Polacrilex (Nicotine Polacrilex Lozenge 4 Mg Lozenge) 4 mg BUCCAL Q1H PRN PRN Reason: Nicotine Cravings Last Admin: 08/02/25 23:27 Dose: 4 mg Documented By: OLIVEMINGracie Olanzapine (Olanzapine 10 Mg Tablet) 10 mg PO BEDTIME [facility] Last Admin: 08/03/25 21:38 Dose: 10 mg Documented By: YUE Olanzapine (Olanzapine 5 Mg Tablet) 5 mg PO Q4H PRN PRN Reason: psychosis/hallucinations Omeprazole (Omeprazole 40 Mg Capsule.Dr) 40 mg PO DAILY@0630 [facility] Last Admin: 08/04/25 06:17 Dose: 40 mg Documented By: YUE Sucralfate (Sucralfate 1 Gm Tablet) 1 gm PO QID [facility] Last Admin: 08/04/25 08:55 Dose: 1 gm Documented By: ROBERTTALBenjamín Tiotropium Dorothy (Tiotropium Dorothy 2.5 Mcg 1 Puff/2.5 Mcg Mist.Inhal) 2 puff INHALE RDAILY [facility] Last Admin: 08/04/25 08:56 Dose: 2 puff Documented By: ROBERTTALBenjamín Torsemide (Torsemide 20 Mg Tablet) 60 mg PO DAILY [facility]; Protocol Last Admin: 08/04/25 08:52 Dose: 60 mg Documented By: ROBERTTALBenjamín Torsemide (Torsemide 20 Mg Tablet) 40 mg PO BEDTIME [facility]; Protocol Last Admin: 08/03/25 21:39 Dose: 40 mg Documented By: YUE Trazodone HCl (Trazodone Hcl 50 Mg Tablet) 50 mg PO BEDTIME MRX1 PRN PRN Reason: Insomnia Last Admin: 08/02/25 03:28 Dose: 50 mg Documented By: FLEMINM Trazodone HCl (Trazodone Hcl 100 Mg Tablet) 100 mg PO BEDTIME [facility] Last Admin: 08/03/25 21:38 Dose: 100 mg Documented By: YUE Labs 07/31/25 01:37 08/02/25 07:31 Labs: Laboratory Results - last 24 hr 08/03/25 08/03/25 08/03/25 12:14 16:54 21:11 POC Glucose 247 H 191 H 242 H 08/04/25 07:37 POC Glucose 350 H* Assessment and Plan (1) Lower extremity cellulitis: Status: Acute (2) Choking episode: Status: Acute (3) HTN (hypertension): Status: Acute (4) Diabetes: Status: Acute Plan 50-year-old male with a past medical history of major depressive disorder, alcohol use disorder, hypertension. YARELIS on nocturnal O2, Congestive heart failure with preserved EF, YARELIS, peripheral artery disease, insulin-dependent diabetes. Chronic kidney disease stage 1, anemia, hyperlipidemia and asthma presented to the ED with increased depression and alcohol intoxication. MDD/alcohol use disorder Treatment per psychiatric team Choking episode requiring Heimlich maneuver Monitor for evidence of aspiration pneumonia. His exam is benign Speech language swallow pending. Hypertension Continue Norvasc and hydralazine and losartan. Losartan recently increased to 50 mg Blood pressures improved Congestive heart failure with preserved EF Continue torsemide b.i.d. Appears euvolemic on exam Per last cardiology note patient needs further follow up ischemic workup. Lost to follow up We will need outpatient cardiology follow up YARELIS/COPD Does not tolerate CPAP, wears O2 at night. 2L at baseline Continue Spiriva, albuterol as needed every 6 hours. Incidental finding of left supraclavicular and upper left mediastinal lymph adenopathy We will need outpatient follow up with PCP for further investigation GERD Continue Prilosec and Carafate Insulin-dependent type 2 diabetes Patient received 30 units of lispro sliding scale yesterday, we will add Lantus 10 units daily Blood sugar ranging 200's to 300s PVD/question cellulitis Continue cephalexin Encouraged leg elevation, Cristian stockings Improved Chronic kidney disease stage 3 Avoid nephrotoxins Anemia Continue iron Hemoglobin stable Thank you for allowing me to participate in the care of this patient. Will follow as needed, please notify medical provider with any changes in condition or concerns. Quality Stroke Does the patient have a stroke diagnosis?: No VTE Prior VTE?: No VTE Risk Level:: Medical - low VTE Device Contraindication: Treatment Not Indicated VTE Drug Contraindication: Treatment Not Indicated
[2025-08-04 12:05] LABS: Glucose, Whole Blood 264 mg/dL (60-115)
[2025-08-04 15:05] VITALS: BP 195/91
--- NOTE | 2025-08-04 15:28 | MHC.SL.SWA ---
Speech Pathologist Impression: Oropharyngeal swallow unremarkable Risk of Aspiration Due to: Reduced attention to task Dysphasia Diet Status: Regular diet, thin liquids, intermittent supervision Liquid Consistency and Strategies for Safe Swallow: Liquid Intake Recommendation: Thin Liquid Intake Strategies: Solid Food Consistency: Dietary Recommendations: Regular Additional Modifications to Solid Foods: Oral Medication Intake: Whole with Liquid Please contact the pharmacy regarding appropriate crushable or liquid drug formulations that are available whenever modified delivery is recommended. Compensatory Strategies and Precautions to be Taken for Safe Swallow: Supervision While Eating and Drinking for Safe Swallow: Intermittent Supervision Foods to Avoid: Swallowing Recommended Treatments: GI consultation if esophageal phase dysphagia evident Recommendation for Speech: Followup 1-2x Comment: Oropharyngeal coordination WNL. No overt s/s of aspiration evident during clinical bedside evaluation. Choking episode considered to be associated with decreased attention/awareness when eating at that particular moment. FERTILIZING MACHINE OPERATOR provided pt with education and review of recc safety strategies that reduce risk for choking. Pt verbalized agreement. RN and MD notified of findings. FERTILIZING MACHINE OPERATOR to follow up 1-2 times. Frequency/Duration: Follow up 1-2x Date Range for Service Req: Timeline to reassess: Silver Service Waiter Clinican/Clinical Fellow: No Supervisory Statement: I have reviewed and agree with the student/clinical fellow's documentation: N/A Speech Language Pathologist: Kesha Samayoa M.S., [facility]-FERTILIZING MACHINE OPERATOR
[2025-08-04 16:23] LABS: Glucose, Whole Blood 147 mg/dL (60-115)
[2025-08-04 16:49] VITALS: BP 159/76
[2025-08-04 20:30] VITALS: BP 121/58; PULSE 104; RESP 16; TEMP 36.5; O2SAT 98
[2025-08-04 20:30] LABS: Glucose, Whole Blood 437 mg/dL (60-115)
[2025-08-05 07:37] VITALS: BP 121/82; PULSE 95; RESP 20; TEMP 36.9; O2SAT 99
[2025-08-05 07:39] LABS: Glucose, Whole Blood 211 mg/dL (60-115)
[2025-08-05] MEDS: Insulin Glargine,Hum.rec.anlog 100 UNIT/ML 10 ML VIAL 10 UNIT SUBCUT (08:08)
[2025-08-05] MEDS: Tiotropium Bromide 2.5 mcg 1 PUFF/2.5 MCG MIST.INHAL 2 PUFF INHALE (08:36)
[2025-08-05] MEDS: Metoprolol Succinate ER 100 MG TAB.ER.24H PO (08:39)
[2025-08-05] MEDS: Ferrous Sulfate 324 MG TABLET.DR PO (08:39)
[2025-08-05] MEDS: Nicotine 21 MG PATCH.TD24 TRANSDERMA (08:45)
[2025-08-05] MEDS: Aspirin Enteric Coated 81 MG TABLET.DR PO (08:54)
--- NOTE | 2025-08-05 09:28 | P.PNPSI_ITS ---
Subjective Subjective Date of Service: 08/05/25 Reason For Visit: crisis Subjective Notes: Conditional Voluntary Interim History: Active on unit. attending groups. Patient reports he believes he is getting better everyday ; denies any side effects from medications. denies SI/HI/VH/AH. Per nursing, slept 8 hours last night. Continue tx plan. Medication Compliance: Yes Side effects from medications: No Attending Groups: Yes Mental Status Exam Mental Status Exam Narrative: Pt is alert and oriented; behavior is cooperative and calm; dressed in casual attire; mood is described as better ; eye contact appropriate; Speech is normal rate, volume and not pressured; thought process is organized; Thought content is on tx/discharge; denies SI/HI/VH/AH. Diagnostics Vital Signs (24Hr): Vital Signs - 24 hr 08/04/25 15:05 08/04/25 16:49 08/04/25 20:30 Temperature 97.7 F Pulse Rate 104 H Respiratory Rate 16 Blood Pressure 195/91 H 159/76 H 121/58 L Pulse Oximetry 98 Oxygen Delivery Method Room Air 08/05/25 07:37 Temperature 98.5 F Pulse Rate 95 Respiratory Rate 20 Blood Pressure 121/82 Pulse Oximetry 99 Oxygen Delivery Method Room Air BMI result Body Mass Index 21.6 Labs 07/31/25 01:37 08/02/25 07:31 Labs: Laboratory Results - last 48 hr 08/03/25 08/03/25 08/03/25 12:14 16:54 21:11 POC Glucose 247 H 191 H 242 H 08/04/25 08/04/25 08/04/25 07:37 12:01 16:19 POC Glucose 350 H* 264 H 147 H 08/04/25 08/05/25 20:21 07:34 POC Glucose 437 H* 211 H Medications Medications Current Medications Acetaminophen (Acetaminophen 325 Mg Tablet) 650 mg PO Q6H PRN PRN Reason: Headache/Pain, Scale 1-10 Last Admin: 08/04/25 08:55 Dose: 650 mg Al Hydroxide/Mg Hydroxide (Magnesium Hydrox/Alum Hydrox 30 Ml Oral.Susp) 30 ml PO Q6H PRN PRN Reason: Heartburn/Nausea Albuterol Sulfate (Albuterol Sulfate (0.083%) 2.5 Mg/3 Ml Vial.Neb) 2.5 mg INHALE Q6H PRN PRN Reason: Wheezing Amlodipine Besylate (Amlodipine Besylate 10 Mg Tablet) 10 mg PO DAILY [facility]; Protocol Last Admin: 08/05/25 08:38 Dose: 10 mg Aspirin (Aspirin Enteric Coated 81 Mg Tablet.) 81 mg PO DAILY [facility] Last Admin: 08/05/25 08:54 Dose: 81 mg Atorvastatin Calcium (Atorvastatin Calcium 40 Mg Tablet) 40 mg PO DAILY [facility] Last Admin: 08/05/25 08:39 Dose: 40 mg Cephalexin HCl (Cephalexin 500 Mg Capsule) 500 mg PO Q6H [facility] Last Admin: 08/05/25 06:16 Dose: 500 mg Dextrose (Dextrose 50 % 25 Gm/50 Ml Syringe) 25 gm IVPUSH Q15M PRN; Protocol PRN Reason: per Hypoglycemia Standing Ord. Escitalopram Oxalate (Escitalopram Oxalate 20 Mg Tablet) 20 mg PO DAILY [facility] Last Admin: 08/05/25 08:38 Dose: 20 mg Ferrous Sulfate (Ferrous Sulfate 324 Mg Tablet.) 324 mg PO DAILY [facility] Last Admin: 08/05/25 08:39 Dose: 324 mg Gabapentin (Gabapentin 300 Mg Capsule) 300 mg PO TID [facility] Last Admin: 08/05/25 08:39 Dose: 300 mg Glucose (Glucose Gel 15 Gm Gel..Gram.) 15 gm PO Q15M PRN; Protocol PRN Reason: per Hypoglycemia Standing Ord. Hydralazine HCl (Hydralazine Hcl 50 Mg Tablet) 100 mg PO TID [facility]; Protocol Last Admin: 08/05/25 08:38 Dose: 100 mg Hydroxyzine HCl (Hydroxyzine Hcl 25 Mg Tablet) 25 mg PO Q6H PRN PRN Reason: mild anxiety Last Admin: 08/05/25 08:45 Dose: 25 mg Insulin Glargine (Insulin Glargine,Hum.Rec.Anlog 100 Unit/Ml 10 Ml Vial) 10 unit SUBCUT DAILY [facility] Last Admin: 08/05/25 08:08 Dose: 10 unit Insulin Human Lispro (Insulin Lispro 100 Unit/Ml 3 Ml Vial) 0 unit SUBCUT TIDAC [facility]; Protocol Last Admin: 08/05/25 08:08 Dose: 6 unit Insulin Human Lispro (Insulin Lispro 100 Unit/Ml 3 Ml Vial) 0 unit SUBCUT DAILY PRN; Protocol PRN Reason: breakthrough hyperglycemia Last Admin: 08/04/25 21:26 Dose: 10 unit Losartan Potassium (Losartan Potassium 50 Mg Tablet) 50 mg PO DAILY [facility]; Protocol Last Admin: 08/05/25 08:39 Dose: 50 mg Magnesium Hydroxide (Milk Of Magnesia 30 Ml Oral.Susp) 30 ml PO DAILY PRN PRN Reason: Constipation Magnesium Oxide (Magnesium Oxide 400 Mg Tablet) 400 mg PO DAILY [facility] Last Admin: 08/05/25 08:39 Dose: 400 mg Metoprolol Succinate (Metoprolol Succinate Er 100 Mg Tab.Er.24h) 100 mg PO DAILY [facility]; Protocol Last Admin: 08/05/25 08:39 Dose: 100 mg Naltrexone HCl (Naltrexone Hcl 50 Mg Tablet) 50 mg PO DAILY [facility] On Hold: 08/01/25 09:00 Nicotine (Nicotine 21 Mg Patch.Td24) 21 mg TRANSDERMA DAILY PRN PRN Reason: Smoking Cessation Last Admin: 08/05/25 08:45 Dose: 21 mg Nicotine Polacrilex (Nicotine Polacrilex Lozenge 4 Mg Lozenge) 4 mg BUCCAL Q1H PRN PRN Reason: Nicotine Cravings Last Admin: 08/02/25 23:27 Dose: 4 mg Olanzapine (Olanzapine 10 Mg Tablet) 10 mg PO BEDTIME [facility] Last Admin: 08/04/25 21:23 Dose: 10 mg Olanzapine (Olanzapine 5 Mg Tablet) 5 mg PO Q4H PRN PRN Reason: psychosis/hallucinations Omeprazole (Omeprazole 40 Mg Capsule.Dr) 40 mg PO DAILY@0630 [facility] Last Admin: 08/05/25 06:16 Dose: 40 mg Sucralfate (Sucralfate 1 Gm Tablet) 1 gm PO QID [facility] Last Admin: 08/05/25 08:38 Dose: 1 gm Tiotropium Alexander (Tiotropium Alexander 2.5 Mcg 1 Puff/2.5 Mcg Mist.Inhal) 2 puff INHALE RDAILY [facility] Last Admin: 08/05/25 08:36 Dose: 2 puff Torsemide (Torsemide 20 Mg Tablet) 60 mg PO DAILY [facility]; Protocol Last Admin: 08/05/25 08:37 Dose: 60 mg Torsemide (Torsemide 20 Mg Tablet) 40 mg PO BEDTIME [facility]; Protocol Last Admin: 08/04/25 21:23 Dose: 40 mg Trazodone HCl (Trazodone Hcl 50 Mg Tablet) 50 mg PO BEDTIME MRX1 PRN PRN Reason: Insomnia Last Admin: 08/02/25 03:28 Dose: 50 mg Trazodone HCl (Trazodone Hcl 100 Mg Tablet) 100 mg PO BEDTIME [facility] Last Admin: 08/04/25 21:23 Dose: 100 mg Allergies Allergies Allergy/AdvReac Type Severity Reaction Status Date / Time [facility] Allergy Unknown Verified 07/30/25 23:17 metformin (METFORMIN) AdvReac Mild DIARRHEA, Verified 07/30/25 23:17 nausea and vomiting Assessment & Plan Assessment & Plan (1) MDD (major depressive disorder), recurrent episode, moderate: Status: Acute Code(s): F33.1 - Major depressive disorder, recurrent, moderate (2) PTSD (post-traumatic stress disorder): Status: Acute Code(s): F43.10 - Post-traumatic stress disorder, unspecified (3) Alcohol use disorder: Status: Acute Code(s): F10.90 - Alcohol use, unspecified, uncomplicated Plan Patient is a 50-year-old male with history of MDD, PTSD, alcohol use disorder who presented to ER via ambulance due to suicidal ideation with plan to overdose on his medications secondary to increased depression and alcohol intoxication. Plan: CV 15 minute safety checks Continue home medications CIWA protocol Encourage groups Referral to outpatient psychiatric providers Referral to substance abuse program Discharge planning 08/02/25: Is scoring on CIWA and getting coverage, but no current withdrawals noted. Will switch over to an Ativan taper 1.5 mg 4 times per day, then 1 mg 4 times per day and then 1 mg 3 times per day and primary team to review at that point. Patient in agreement with plan and also reports wanting rehab services as he has never tried rehab in the past. 08/03/2025: Adjust insulin sliding scale, otherwise no changes. Had a fall last night which was mechanical in nature and seen by Medicine 08/04: Active on unit. attending groups. Patient reports having lots of anxiety today; he reports sleeping well last night. denies SI/HI/VH/AH. Patient reports he plans on returning home after discharge; discussed possibly DC on /Monday if continues to improve. Continue tx plan. 08/05: Active on unit. attending groups. Patient reports he believes he is getting better everyday ; denies any side effects from medications. denies SI/HI/VH/AH. Per nursing, slept 8 hours last night. Continue tx plan. Patient educated on: diagnosis and medication risk/benefits Reason for continued inpatient stay Substantial Risk for: med/psych decompensation Time Spent With Patient Time: Total time managing care of this patient today _20___ minutes.
[2025-08-05 11:41] LABS: Glucose, Whole Blood 454 mg/dL (60-115)
[2025-08-05 16:55] LABS: Glucose, Whole Blood 131 mg/dL (60-115)
--- NOTE | 2025-08-05 17:48 | MHC.SLORD ---
Speech Language Pathology Order Status: Patient not seen today for swallow tx secondary to CHEMICAL TREATMENT PLANT TECHNICIAN availability.
[2025-08-05 20:00] VITALS: BP 119/60; PULSE 100; RESP 18; TEMP 36.6; O2SAT 95
[2025-08-05 20:25] LABS: Glucose, Whole Blood 378 mg/dL (60-115)
[2025-08-06 07:50] LABS: Glucose, Whole Blood 294 mg/dL (60-115)
[2025-08-06] MEDS: Insulin Glargine,Hum.rec.anlog 100 UNIT/ML 10 ML VIAL 17 UNIT SUBCUT (08:04)
[2025-08-06] MEDS: Tiotropium Bromide 2.5 mcg 1 PUFF/2.5 MCG MIST.INHAL 2 PUFF INHALE (08:38)
[2025-08-06 08:40] VITALS: BP 163/74
[2025-08-06] MEDS: Ferrous Sulfate 324 MG TABLET.DR PO (08:40)
[2025-08-06] MEDS: Metoprolol Succinate ER 100 MG TAB.ER.24H PO (08:42)
[2025-08-06 08:45] VITALS: BP 147/74; PULSE 92; RESP 16; TEMP 36.5; O2SAT 95
[2025-08-06] MEDS: Aspirin Enteric Coated 81 MG TABLET.DR PO (08:51)
[2025-08-06] MEDS: Nicotine Polacrilex Lozenge 4 MG LOZENGE BUCCAL ×2 (08:51→14:22)
--- NOTE | 2025-08-06 09:02 | HO.PSYCHPN ---
Subjective Subjective Date of Service: 08/06/25 Reason For Visit: crisis Subjective Notes: Conditional Voluntary Interim History: Active on unit. attending groups. social with peers. Patient reports feeling good today; he reports he plans on getting a dog to keep myself busy and go on walks . future oriented. pt plans on attending AA meetings and following up with his outpatient provider. braulio SI/HI/VH/AH. Medication Compliance: Yes Side effects from medications: No Attending Groups: Yes Mental Status Exam Mental Status Exam Narrative: Pt is alert and oriented; behavior is cooperative and calm; dressed in casual attire; mood is described as good ; eye contact appropriate; Speech is normal rate, volume and not pressured; thought process is organized; Thought content is on tx/discharge; denies SI/HI/VH/AH. Diagnostics Vital Signs (24Hr): Vital Signs - 24 hr 08/05/25 20:00 08/06/25 08:40 Temperature 97.9 F Pulse Rate 100 Respiratory Rate 18 Blood Pressure 119/60 163/74 H Pulse Oximetry 95 Oxygen Delivery Method Room Air BMI result Body Mass Index 21.6 Labs 07/31/25 01:37 08/02/25 07:31 Labs: Laboratory Results - last 48 hr 08/04/25 08/04/25 08/04/25 12:01 16:19 20:21 POC Glucose 264 H 147 H 437 H* 08/05/25 08/05/25 08/05/25 07:34 11:34 16:51 POC Glucose 211 H 454 H* 131 H 08/05/25 08/06/25 20:19 07:45 POC Glucose 378 H* 294 H Medications Medications Current Medications Acetaminophen (Acetaminophen 325 Mg Tablet) 650 mg PO Q6H PRN PRN Reason: Headache/Pain, Scale 1-10 Last Admin: 08/04/25 08:55 Dose: 650 mg Al Hydroxide/Mg Hydroxide (Magnesium Hydrox/Alum Hydrox 30 Ml Oral.Susp) 30 ml PO Q6H PRN PRN Reason: Heartburn/Nausea Albuterol Sulfate (Albuterol Sulfate (0.083%) 2.5 Mg/3 Ml Vial.Neb) 2.5 mg INHALE Q6H PRN PRN Reason: Wheezing Amlodipine Besylate (Amlodipine Besylate 10 Mg Tablet) 10 mg PO DAILY [facility]; Protocol Last Admin: 08/06/25 08:42 Dose: 10 mg Aspirin (Aspirin Enteric Coated 81 Mg Tablet.) 81 mg PO DAILY [facility] Last Admin: 08/05/25 08:54 Dose: 81 mg Atorvastatin Calcium (Atorvastatin Calcium 40 Mg Tablet) 40 mg PO DAILY [facility] Last Admin: 08/06/25 08:42 Dose: 40 mg Cephalexin HCl (Cephalexin 500 Mg Capsule) 500 mg PO Q6H [facility] Last Admin: 08/06/25 05:45 Dose: 500 mg Dextrose (Dextrose 50 % 25 Gm/50 Ml Syringe) 25 gm IVPUSH Q15M PRN; Protocol PRN Reason: per Hypoglycemia Standing Ord. Escitalopram Oxalate (Escitalopram Oxalate 20 Mg Tablet) 20 mg PO DAILY [facility] Last Admin: 08/06/25 08:41 Dose: 20 mg Ferrous Sulfate (Ferrous Sulfate 324 Mg Tablet.) 324 mg PO DAILY [facility] Last Admin: 08/06/25 08:40 Dose: 324 mg Gabapentin (Gabapentin 300 Mg Capsule) 300 mg PO TID [facility] Last Admin: 08/06/25 08:42 Dose: 300 mg Glucose (Glucose Gel 15 Gm Gel..Gram.) 15 gm PO Q15M PRN; Protocol PRN Reason: per Hypoglycemia Standing Ord. Hydralazine HCl (Hydralazine Hcl 50 Mg Tablet) 100 mg PO TID [facility]; Protocol Last Admin: 08/06/25 08:41 Dose: 100 mg Hydroxyzine HCl (Hydroxyzine Hcl 25 Mg Tablet) 25 mg PO Q6H PRN PRN Reason: mild anxiety Last Admin: 08/06/25 08:51 Dose: 25 mg Insulin Glargine (Insulin Glargine,Hum.Rec.Anlog 100 Unit/Ml 10 Ml Vial) 17 unit SUBCUT DAILY [facility] Last Admin: 08/06/25 08:04 Dose: 17 unit Insulin Human Lispro (Insulin Lispro 100 Unit/Ml 3 Ml Vial) 0 unit SUBCUT TIDAC [facility]; Protocol Last Admin: 08/06/25 08:03 Dose: 8 unit Insulin Human Lispro (Insulin Lispro 100 Unit/Ml 3 Ml Vial) 0 unit SUBCUT DAILY PRN; Protocol PRN Reason: breakthrough hyperglycemia Last Admin: 08/05/25 21:01 Dose: 10 unit Losartan Potassium (Losartan Potassium 50 Mg Tablet) 50 mg PO DAILY [facility]; Protocol Last Admin: 08/06/25 08:43 Dose: 50 mg Magnesium Hydroxide (Milk Of Magnesia 30 Ml Oral.Susp) 30 ml PO DAILY PRN PRN Reason: Constipation Magnesium Oxide (Magnesium Oxide 400 Mg Tablet) 400 mg PO DAILY [facility] Last Admin: 08/06/25 08:42 Dose: 400 mg Metoprolol Succinate (Metoprolol Succinate Er 100 Mg Tab.Er.24h) 100 mg PO DAILY [facility]; Protocol Last Admin: 08/06/25 08:42 Dose: 100 mg Naltrexone HCl (Naltrexone Hcl 50 Mg Tablet) 50 mg PO DAILY [facility] On Hold: 08/01/25 09:00 Nicotine (Nicotine 21 Mg Patch.Td24) 21 mg TRANSDERMA DAILY PRN PRN Reason: Smoking Cessation Last Admin: 08/05/25 08:45 Dose: 21 mg Nicotine Polacrilex (Nicotine Polacrilex Lozenge 4 Mg Lozenge) 4 mg BUCCAL Q1H PRN PRN Reason: Nicotine Cravings Last Admin: 08/06/25 08:51 Dose: 4 mg Olanzapine (Olanzapine 10 Mg Tablet) 10 mg PO BEDTIME [facility] Last Admin: 08/05/25 21:04 Dose: 10 mg Olanzapine (Olanzapine 5 Mg Tablet) 5 mg PO Q4H PRN PRN Reason: psychosis/hallucinations Omeprazole (Omeprazole 40 Mg Capsule.Dr) 40 mg PO DAILY@0630 [facility] Last Admin: 08/06/25 05:45 Dose: 40 mg Sucralfate (Sucralfate 1 Gm Tablet) 1 gm PO QID [facility] Last Admin: 08/06/25 08:43 Dose: 1 gm Tiotropium [place] (Tiotropium [place] 2.5 Mcg 1 Puff/2.5 Mcg Mist.Inhal) 2 puff INHALE RDAILY [facility] Last Admin: 08/06/25 08:38 Dose: 2 puff Torsemide (Torsemide 20 Mg Tablet) 60 mg PO DAILY [facility]; Protocol Last Admin: 08/06/25 08:40 Dose: 60 mg Torsemide (Torsemide 20 Mg Tablet) 40 mg PO DAILY@1800 [facility]; Protocol Last Admin: 08/05/25 18:01 Dose: 40 mg Trazodone HCl (Trazodone Hcl 50 Mg Tablet) 50 mg PO BEDTIME MRX1 PRN PRN Reason: Insomnia Last Admin: 08/02/25 03:28 Dose: 50 mg Trazodone HCl (Trazodone Hcl 100 Mg Tablet) 100 mg PO BEDTIME [facility] Last Admin: 08/05/25 21:05 Dose: 100 mg Allergies Allergies Allergy/AdvReac Type Severity Reaction Status Date / Time dulaglutide (From [facility]) Allergy Unknown Verified 07/30/25 23:17 metformin (METFORMIN) AdvReac Mild DIARRHEA, Verified 07/30/25 23:17 nausea and vomiting Assessment & Plan Assessment & Plan (1) MDD (major depressive disorder), recurrent episode, moderate: Status: Acute Code(s): F33.1 - Major depressive disorder, recurrent, moderate (2) PTSD (post-traumatic stress disorder): Status: Acute Code(s): F43.10 - Post-traumatic stress disorder, unspecified (3) Alcohol use disorder: Status: Acute Code(s): F10.90 - Alcohol use, unspecified, uncomplicated Plan Patient is a 50-year-old male with history of MDD, PTSD, alcohol use disorder who presented to ER via ambulance due to suicidal ideation with plan to overdose on his medications secondary to increased depression and alcohol intoxication. Plan: CV 15 minute safety checks Continue home medications CIWA protocol Encourage groups Referral to outpatient psychiatric providers Referral to substance abuse program Discharge planning 08/02/25: Is scoring on CIWA and getting coverage, but no current withdrawals noted. Will switch over to an Ativan taper 1.5 mg 4 times per day, then 1 mg 4 times per day and then 1 mg 3 times per day and primary team to review at that point. Patient in agreement with plan and also reports wanting rehab services as he has never tried rehab in the past. 08/03/2025: Adjust insulin sliding scale, otherwise no changes. Had a fall last night which was mechanical in nature and seen by Medicine 08/04: Active on unit. attending groups. Patient reports having lots of anxiety today; he reports sleeping well last night. denies SI/HI/VH/AH. Patient reports he plans on returning home after discharge; discussed possibly DC on /Monday if continues to improve. Continue tx plan. 08/05: Active on unit. attending groups. Patient reports he believes he is getting better everyday ; denies any side effects from medications. denies SI/HI/VH/AH. Per nursing, slept 8 hours last night. Continue tx plan. 08/06:Active on unit. attending groups. social with peers. Patient reports feeling good today; he reports he plans on getting a dog to keep myself busy and go on walks . future oriented. pt plans on attending AA meetings and following up with his outpatient provider. braulio MUNGUIA/LAWSON/DALY/HERMANN. Patient educated on: diagnosis and medication risk/benefits Reason for continued inpatient stay Substantial Risk for: stable for discharge Time Spent With Patient Time: Total time managing care of this patient today _20___ minutes.
[2025-08-06] MEDS: Nicotine 21 MG PATCH.TD24 TRANSDERMA (09:39)
[2025-08-06 11:42] LABS: Glucose, Whole Blood 439 mg/dL (60-115)
--- NOTE | 2025-08-06 14:15 | MHC.SLORD ---
Speech Language Pathology Order Status: Pt not seen by G[facility] CUTTER 08/06.
[2025-08-06 14:49] VITALS: BP 156/72; PULSE 87; TEMP 36.7; O2SAT 98
[2025-08-06 16:59] LABS: Glucose, Whole Blood 274 mg/dL (60-115)
[2025-08-06] MEDS: Hydrocortisone 1 % Cream 28.35 GM TUBE 1 APPL TOPICAL (17:23)
[2025-08-06 20:00] VITALS: BP 109/60; PULSE 88; RESP 16; TEMP 36.6; O2SAT 98
[2025-08-06 20:33] LABS: Glucose, Whole Blood 384 mg/dL (60-115)
[2025-08-07 07:30] VITALS: BP 122/65; PULSE 93; RESP 16; TEMP 36.2; O2SAT 98
[2025-08-07 07:59] LABS: Glucose, Whole Blood 214 mg/dL (60-115)
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
[2025-08-07] MEDS: Tiotropium Bromide 2.5 mcg 1 PUFF/2.5 MCG MIST.INHAL 2 PUFF INHALE (09:12)
[2025-08-07 09:13] VITALS: BP 122/65
[2025-08-07] MEDS: Aspirin Enteric Coated 81 MG TABLET.DR PO (09:13)
[2025-08-07] MEDS: Ferrous Sulfate 324 MG TABLET.DR PO (09:13)
[2025-08-07 09:14] VITALS: BP 122/65
[2025-08-07 09:16] VITALS: BP 122/65; PULSE 93
[2025-08-07] MEDS: Metoprolol Succinate ER 100 MG TAB.ER.24H PO (09:16)
[2025-08-07] MEDS: Insulin Glargine,Hum.rec.anlog 100 UNIT/ML 10 ML VIAL 17 UNIT SUBCUT (09:17)
== END 2025-08-07 11:11 | disposition home or self-care (01) | DRG 751 ==
LOC: HO.ED 07-31 10:02 → HO.PADLT16 07-31 12:01
PROVIDERS: Admitting Provider Registered Nurse; Emergency Provider Student in an Organized Health Care Education/Training Program; PCP Internal Medicine; Responsible Provider Registered Nurse; Visit Provider Psychiatry & Neurology Psychiatry
DX: F33.1 Major depressive disorder, recurrent, moderate (principal); L03.115 Cellulitis of right lower limb; I50.32 Chronic diastolic (congestive) heart failure; I13.0 Hypertensive heart and chronic kidney disease with heart failure and stage 1 through stage 4 chronic kidney disease, or unspecified chronic kidney disease; E11.22 Type 2 diabetes mellitus with diabetic chronic kidney disease; L03.116 Cellulitis of left lower limb; D63.1 Anemia in chronic kidney disease; R45.851 Suicidal ideations; E11.51 Type 2 diabetes mellitus with diabetic peripheral angiopathy without gangrene; G47.33 Obstructive sleep apnea (adult) (pediatric); J44.9 Chronic obstructive pulmonary disease, unspecified; Z96.41 Presence of insulin pump (external) (internal); K21.9 Gastro-esophageal reflux disease without esophagitis; N18.30 Chronic kidney disease, stage 3 unspecified; F43.10 Post-traumatic stress disorder, unspecified; F10.90 Alcohol use, unspecified, uncomplicated; Y90.8 Blood alcohol level of 240 mg/100 ml or more; Z79.4 Long term (current) use of insulin; Z79.82 Long term (current) use of aspirin; Z79.899 Other long term (current) drug therapy
CPT/HCPCS: 36415; 70450; 72125; 80053; 80061; 80307; 81001; 82947; 83036; 85025; 92610; 93005; 94640; 99285; J7120; S9485

== ENCOUNTER → 2025-07-31 11:13 | Outpatient (BNV) | payer OTHER, SELFPAY | PROVIDERS: Admitting Provider Registered Nurse; Emergency Provider Student in an Organized Health Care Education/Training Program; PCP Internal Medicine; Visit Provider Internal Medicine | DX: Z13.6 Encounter for screening for cardiovascular disorders (principal) | CPT/HCPCS: 93010 ==

== ENCOUNTER 2025-07-31 12:01 | Outpatient (BNV) | payer OTHER, SELFPAY | END 2025-08-03 04:13 | PROVIDERS: Admitting Provider Registered Nurse; Emergency Provider Student in an Organized Health Care Education/Training Program; PCP Internal Medicine; Responsible Provider Registered Nurse; Visit Provider Radiology Diagnostic Radiology | DX: R59.9 Enlarged lymph nodes, unspecified (principal); S09.90XA Unspecified injury of head, initial encounter; W19.XXXA Unspecified fall, initial encounter | CPT/HCPCS: 70450; 72125 ==

== ENCOUNTER → 2025-07-31 12:01 | Outpatient (BNV) | payer OTHER, SELFPAY | PROVIDERS: Admitting Provider Registered Nurse; Emergency Provider Student in an Organized Health Care Education/Training Program; PCP Internal Medicine; Visit Provider Nurse Practitioner Family | DX: F10.939 Alcohol use, unspecified with withdrawal, unspecified (principal); R56.9 Unspecified convulsions; I73.9 Peripheral vascular disease, unspecified; L03.119 Cellulitis of unspecified part of limb | CPT/HCPCS: 99222; 99231; 99232; 99499 ==

== ENCOUNTER → 2025-07-31 12:01 | Outpatient (BNV) | payer OTHER, SELFPAY | PROVIDERS: Admitting Provider Registered Nurse; Emergency Provider Student in an Organized Health Care Education/Training Program; PCP Internal Medicine; Responsible Provider Registered Nurse; Visit Provider Psychiatry & Neurology Psychiatry | DX: F33.1 Major depressive disorder, recurrent, moderate (principal); F43.10 Post-traumatic stress disorder, unspecified; F10.90 Alcohol use, unspecified, uncomplicated | CPT/HCPCS: 90792; 99231; 99232; 99238 ==

== ENCOUNTER 2025-08-08 13:43 | Outpatient (AMB) | payer OTHER, SELFPAY ==
--- NOTE | 2025-08-08 13:46 | A.OFFVIS_ITS ---
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 Accompanied by: Self / Same As Patient Allergies dulaglutide (From [facility]) Allergy (Verified 08/08/25 13:49) Unknown metformin (METFORMIN) Adverse Reaction (Mild, Verified 08/08/25 13:49) DIARRHEA, nausea and vomiting Medication List - Last Reconciled 08/08/25 by Alissa Wiggins NP-C albuterol sulfate 2.5 mg inhalation Q6H PRN amlodipine 10 mg PO DAILY aspirin 81 mg PO DAILY atorvastatin 40 mg PO DAILY cephalexin 500 mg PO Q6H 3 days escitalopram oxalate 20 mg PO DAILY ferrous sulfate (iron) 325 mg PO DAILY gabapentin 300 mg PO TID hydralazine 100 mg PO TID 30 days hydroxyzine HCl 25 mg PO BID PRN 30 days insulin lispro 100 units subcut DIRECTED losartan 50 mg See Protocol PO DAILY 30 days magnesium oxide 400 mg PO DAILY metoprolol succinate ER 100 mg PO DAILY [id number]-[id number]-vit K-lycop 400-20-300 mcg (One-A-Day Men's Multivitamin) 1 tab PO DAILY naltrexone 50 mg PO DAILY 30 days nicotine 21 mg transdermal DAILY PRN nicotine (polacrilex) 4 mg buccal Q1H PRN 30 days olanzapine 10 mg PO BEDTIME 30 days omeprazole 40 mg PO DAILY@0630 sucralfate 1 g PO QID tiotropium bromide 2.5 mcg/actuation (Spiriva Respimat) 2 puffs inhalation RDAILY 30 days torsemide 60 mg PO DAILY torsemide 40 mg PO BEDTIME trazodone 100 mg PO BEDTIME HPI HPI f/u rs 06/20/25: Details: Ciara is a 50-year-old male with past medical history of diabetes, hyperlipidemia, hypertension, obstructive sleep apnea with CPAP use, COPD, smoking, alcohol abuse, CKD,?heart failure with preserved EF who presents for follow-up. His last prior visit was 03/14/2025. Since that time he has had 8 ER visits and 5 hospital admissions mostly for alcohol abuse, KELVIN and COPD exacerbation. Today he reports that he has been doing well since his hospital discharge last week. He says he has visiting nurses 3 times weekly that help him with his medications. He is currently trying to stop drinking alcohol and then he hopes to stop smoking cigarettes. He has chronic shortness of breath with activity. No PND, orthopnea or recent edema. No chest discomfort at rest or with activity. No heart palpitations, lightheadedness, presyncope. He sleeps with the head of the bed elevated which is his norm. He is not wearing CPAP but is using oxygen at night. Taking meds as directed. [facility] Medical History Diabetes HTN (hypertension) MDD (major depressive disorder), recurrent episode, moderate Tobacco use CKD (chronic kidney disease) stage 1, GFR 90 ml/min or greater YARELIS (obstructive sleep apnea) Acute on chronic diastolic (congestive) heart failure KELVIN (acute kidney injury) Chronic heart failure with preserved ejection fraction (HFpEF) Depression Acute on chronic anemia Anxiety HLD (hyperlipidemia) Asthma PAD (peripheral artery disease) Surgical History History of esophagogastroduodenoscopy S/P angiogram of extremity Family History Father Alzheimer disease CAD (coronary artery disease) Social History Household Members: None Household Members Other:: 4 Housing: Apartment Do you presently have visiting nurse or other home services: No Alcohol intake: current Alcohol intake frequency: 3 or more drinks per day Alcohol type: hard liquor Comment: refuses high fall risk Patient Tobacco Use Status: Never used Tobacco Tobacco use type: Cigarette Cigarette Packs Per Day: 1 Cigarettes Per Day: 20.0 Years Smoked: 33 years e-Cigarette/Vaping Use: Currently Using Second Hand Smoke Exposure: No Substance Use Type: Marijuana Advance Directives Date on File: 06/21/21 service: No Current occupational status: disabled Sexual orientation: Straight/Heterosexual Review of Systems Const All systems reviewed & are unremarkable except as noted in HPI and below Denies daytime sleepiness, Denies difficulty sleeping, Denies snoring, Denies stops breathing during sleep and Denies weakness Card Denies chest pain, Denies rapid heart rate, Denies irregular heart rhythm, Denies claudication, Denies leg edema, Denies lightheadedness, Denies palpitations, Reports dyspnea, Reports dyspnea on exertion, Reports orthopnea, Denies paroxysmal nocturnal dyspnea and Denies slow heart rate Resp Denies cough, Reports dyspnea, Reports dyspnea on exertion and Denies snoring GI Reports no additional complaints, Denies hematochezia, Denies change in stool character and Denies dyspepsia Musc Denies abnormal gait, Denies muscle weakness and Denies numbness Neuro Denies abnormal gait, Denies numbness and Denies weakness Endo Denies palpitations Physical Exam Vital Signs: BMI result Body Mass Index 21.5 Const General: cooperative, healthy appearing, comfortable and no acute distress Orientation/consciousness: patient oriented x3 Neck Neck: Yes normal visual inspection Resp Effort & Inspection: normal respiratory effort Auscultation: clear to auscultation bilaterally, no rales, no rhonchi and no wheezes Cardio Rate: regular rate Rhythm: regular rhythm Heart sounds: S1 normal heart sound present, S2 normal heart sound present, no gallops, no murmurs and no rubs Neuro General: patient oriented x3 Extrem Other: Minimal ankle swelling General: Yes normal to inspection Psych Appearance: grossly normal Mental Status: mental status grossly normal Speech and movement: Normal speech and movement present Office Procedures EKG Details: Today, read by me, normal sinus rhythm, rate 79, QTC 405 milliseconds [id number], Complete Assessment & Plan Assessment & Plan (1) Congestive heart failure: Code(s): I50.9 - Heart failure, unspecified Category: Medical Qualifiers: Heart failure type: diastolic Plan: History of heart failure with preserved EF which has been stable in recent months. Last echo 01/14/2025 showed EF 40-45%, basal inferior and mid inferior lateral akinesis, increased right atrial pressure, mild pulmonary hypertension. Nuclear stress test 05/15/2025 showed normal myocardial perfusion imaging. His condition has been stable on torsemide 60 mg in the a.m. and 40 mg in the p.m. He has had [facility] admissions however most recent creatinine 1.33 on 08/02/2025. Currently is not fluid overloaded on exam. NYHA class 2. Signs and symptoms of heart failure reviewed with him in detail. Continue low-salt diet, med compliance, alcohol cessation and and recommended smoking cessation. (2) Cardiomyopathy: Code(s): I42.9 - Cardiomyopathy, unspecified Category: Medical Plan: Nonischemic cardiomyopathy, with recent echo showing EF 45-50%. This may be alcohol related. He is working on alcohol cessation. Continue metoprolol XL and losartan for neurohormonal modulation. Continue torsemide for diuretics.. (3) YARELIS (obstructive sleep apnea): Code(s): G47.33 - Obstructive sleep apnea (adult) (pediatric) Category: Medical Plan: Tells me that he wears O2 at night. (4) HTN (hypertension): Code(s): I10 - Essential (primary) hypertension Category: Medical Qualifiers: Hypertension type: primary hypertension Qualified Code(s): I10 - Essential (primary) hypertension Plan: Blood pressure goal less than 130/80. Mildly elevated initially today at 148/74. He has visiting nurse who will check his blood pressure 3 times weekly. Instructed him to have her call for systolic readings running greater than 140 consistently. No med changes made. Continue amlodipine, torsemide hydralazine, metoprolol, isosorbide. (5) Hospital discharge follow-up: Code(s): Z09 - Encounter for follow-up examination after completed treatment for conditions other than malignant neoplasm Category: Medical Plan: Recent [facility] ER visits and discharge summaries reviewed. (6) CKD (chronic kidney disease) stage 1, GFR 90 ml/min or greater: Code(s): N18.1 - Chronic kidney disease, stage 1 Category: Medical Plan: He has known CKD and follows with Nephrology. Plan Time spent on chart review, documentation, interview assessment Coding Level of Care Code Est Pt Level 4 (83736) Complex EM visit Add On G2211 Diagnoses Congestive heart failure I50.9 Heart failure type: diastolic Cardiomyopathy I42.9 YARELIS (obstructive sleep apnea) G47.33 Primary hypertension I10 Hypertension type: primary hypertension Hospital discharge follow-up Z09 CKD (chronic kidney disease) stage 1, GFR 90 ml/min or greater N18.1 CPT Codes EKG - CPT: [id number], Complete ([id number]) Time Spent (min) 32
[2025-08-08 13:47] VITALS: BP 148/74; PULSE 79; BMI 21.5
== END 2025-08-08 14:21 | disposition home or self-care (01) ==
LOC: HO.HCS 13:44
PROVIDERS: PCP Internal Medicine; Visit Provider Nurse Practitioner Family
DX: I50.9 Heart failure, unspecified (principal); I42.9 Cardiomyopathy, unspecified; G47.33 Obstructive sleep apnea (adult) (pediatric); I12.9 Hypertensive chronic kidney disease with stage 1 through stage 4 chronic kidney disease, or unspecified chronic kidney disease; Z09 Encounter for follow-up examination after completed treatment for conditions other than malignant neoplasm; N18.1 Chronic kidney disease, stage 1
CPT/HCPCS: 93010; 99214

== ENCOUNTER → 2025-08-08 13:43 | Outpatient (BNVA) | payer OTHER, SELFPAY | PROVIDERS: PCP Internal Medicine; Visit Provider Nurse Practitioner Family | DX: I10 Essential (primary) hypertension (principal); I50.9 Heart failure, unspecified; I42.9 Cardiomyopathy, unspecified; N18.1 Chronic kidney disease, stage 1; G47.33 Obstructive sleep apnea (adult) (pediatric) | CPT/HCPCS: 93005; 99212 ==